=== PATIENT | female | born 1955 | race Caucasian/White ===

== ENCOUNTER 2018-02-25 11:01 | Emergency (ER) | payer OTHER, SELFPAY ==
[2018-02-25 11:01] VITALS: BP 139/85; PULSE 83; RESP 16; TEMP 36.9; O2SAT 95; BMI 24.3
[2018-02-25 12:25] LABS: Anion Gap 10 (5-15); BUN 9 mg/dL (7-18); BUN/Creat Ratio 12.6 RATIO (10-20); Chloride 99 mmol/L (98-107); Creatinine, Serum 0.71 mg/dL (0.55-1.02); EST Glomerular Filtration Rate 88 mL/min (>60); Est Glom Filt Rate - Afr Amer 107 mL/min (>60); Estimated Creatinine Clearance 71.85 ml/min; Glucose 81 mg/dL (74-106); Potassium 3.5 mmol/L (3.5-5.1); Sodium Level 140 mmol/L (136-145)
[2018-02-25 12:28] LABS: Basophil% 0.3 % (0-1); Eosinophils% 7.3 % (0-5); Hematocrit 34.3 % (37-47); Hemoglobin 11.5 g/dl (12.0-15.0); Lymphocyte % 22.8 % (19-41); Mean Corp Hgb Conc 33.5 g/gl (32-36); Mean Corpuscular Hgb 30.7 pg (27.0-32.0); Mean Corpuscular Volume 91.5 fL (81-99); Mean Platelet Vol. 9.4 fl (6.2-12.0); Monocyte% 9.1 % (0-10); Neutrophil # 5.15 X10^3/uL (2.7-7.7); Neutrophil % 60.2 % (47-70); POSITIVE COUNT NO; POSITIVE DIFFERENTIAL NO; POSITIVE MORPHOLOGY NO; Platelet Count 342 K/mm3 (150-450); RBC Distribution Width CV 12.4 % (11.6-14.6); RBC Distribution Width SD 40.7 fl (35.1-43.9); Red Blood Count 3.75 M/mm3 (4.2-5.4); White Blood Count 8.6 K/mm3 (4.4-11.0)
[2018-02-25 12:29] LABS: Absolute Lymphocyte Count 1.96 X10^3/ul (0.83-4.51); Absolute Neutrophil Count 5.2 X10^3/uL (2.0-7.7); Basophil# 0.03 X10^3/uL; Eosinophil# 0.63 X10^3/uL; Lymphocyte # 1.96 X10^3/ul (4.0); Monocyte# 0.78 X10^3/uL
[2018-02-25 12:33] LABS: Bacteria 0 SEEN /hpf (None Seen); Color, Urine Yellow (Yellow); Glucose, Dipstick Normal (Normal); Ketone-Dipstick Negative (Negative); Leukocyte Esterase-Dipstick 25 /ul (Negative); Mucous, Urine 0 SEEN /hpf (<or=2+); Nitrite-Dipstick Negative (Negative); Occult Blood-Urine Negative /ul (Negative); Protein-Dipstick Negative (Negative); Urine Bilirubin Dipstick Negative (Negative); Urine Clarity Clear (Clear); Urine Urobilinogen Normal (Normal)
[2018-02-25 12:37] LABS: Red Blood Cells-Urine 0-5 SEEN /hpf (0-5); Squamous Epithelial Cells - UA 0-5 SEEN /hpf (5-10); White Blood Cells 0-5 SEEN /hpf (0-5)
[2018-02-25] MEDS: Acetaminophen 325 MG Tablet 650 MG PO (13:21)
[2018-02-25] MEDS: oxyCODONE 5 MG Tablet 10 MG PO (13:21)
[2018-02-25 13:23] VITALS: BP 130/85; PULSE 83; RESP 16; O2SAT 92
--- NOTE | 2018-02-25 13:33 | ED.DCSUM_ITS ---
- ER Visit Summary Date of Service: 02/25/18 Chief Complaint: Leg swelling History of Present Illness: The patient is a 62 F presenting for evaluation secondary to bilateral lower extremity edema. Patient states that she had a recent right total shoulder surgery performed. She states she was doing well from that. She states that she only went home on some prophylactic antibiotics. She does not report that she has been on any sort of anticoagulants. She reports that over the course of the last 2448 hrs. she has had progressive swelling of her bilateral lower extremities going from her feet all the way up to her thighs. She states that there is some mild discomfort associated with the swelling but denies any chest pain hemoptysis or shortness of breath. Patient does have an underlying history of COPD. She denies any DVT or PE history. Physical Examination: Vital signs notable for pulse ox 93% well-nourished female no acute distress. Moist mucous membranes. No JVD. Heart regular rate and rhythm no murmurs lungs sounds clear to auscultation bilaterally. Abdomen soft nontender. Lower extremity exam shows +1 bilateral lower extremity edema 2 + DP pulses compartments are soft throughout the calf and thigh normal range of motion no evidence of petechia. Test Results: Duplex ultrasound bilaterally lower extremities is negative. CBC , chemistry, urinalysis found to be within normal limits, troponin negative, BNP negative Emergency Department Course and Treatment: She presented with lower extremity edema. Patient was worked up as noted above and had a negative workup. She has no evidence of vascular compromise that she has warm extremities and normal pulses. She has no evidence of DVT, no evidence of blood abnormalities renal abnormalities or heart failure. She likely just has simple peripheral edema she was recommended on elevation and she was discharged. Disposition: Discharge Impression: 1. Peripheral edema This note was generated with [employer] dictation software. It may contain incorrect words, spelling, and punctuation that were not noted in review of the chart prior to signing ED Disposition - Plan for ED Patient: Disposition: Home or Assisted Living Chief Complaint: Edema Diagnosis: Peripheral edema Instructions: ED Leg Swelling Bilateral Referrals: Julio Draper MD [Primary Care Provider] - As Needed
== END 2018-02-25 13:37 | disposition home or self-care (01) ==
PROVIDERS: Emergency Provider Emergency Medicine; Family Provider Internal Medicine; PCP Internal Medicine
DX: R60.0 Localized edema (principal); J44.9 Chronic obstructive pulmonary disease, unspecified
CPT/HCPCS: 80048; 81001; 81002; 83880; 84484; 85025; 93970; 99284; A4216

== ENCOUNTER → 2019-11-12 | Outpatient (CLI) | payer OTHER, SELFPAY ==
[2019-11-12 12:46] LABS: D-Dimer Quantitative (DVT/PE) 0.66 FEU/ug/m (0.27-0.49)
[2019-11-12 13:20] LABS: BNP,B-Type NATRIURETIC PEPTIDE 48.4 pg/mL (0-100)
== END | disposition home or self-care (01) ==
LOC: LABSPEC 12:19
PROVIDERS: PCP Internal Medicine; Referring Provider Nurse Practitioner; Visit Provider Nurse Practitioner
DX: R07.9 Chest pain, unspecified (principal); R06.02 Shortness of breath
CPT/HCPCS: 83880; 85379

== ENCOUNTER → 2020-03-07 | Outpatient (CLI) | payer OTHER, SELFPAY | END | disposition home or self-care (01) | LOC: LABSPEC 03-14 13:23 | PROVIDERS: PCP Internal Medicine | DX: R05 Cough (principal); J44.9 Chronic obstructive pulmonary disease, unspecified; R09.89 Other specified symptoms and signs involving the circulatory and respiratory systems; Z20.828 Contact with and (suspected) exposure to other viral communicable diseases | CPT/HCPCS: 87635; C9803; U0003 ==

== ENCOUNTER 2020-04-22 13:41 | Emergency (ER) | payer OTHER, SELFPAY ==
[2020-04-22 13:41] VITALS: BP 149/99; PULSE 89; RESP 17; TEMP 35.7; O2SAT 96; BMI 25.4
[2020-04-22 14:11] VITALS: O2SAT 96
--- NOTE | 2020-04-22 14:50 | ED.DCSUM_ITS ---
History of Present Illness Chief Complaint: Shortness of Breath Informant: Patient Narrative: 64 year old female presenting with shortness of breath. She states she has had a cold. She denies fever, chills, myalgia's, lost of taste or smell. She admits to a cough and congestion. She states It just my COPD acting up. She denies chest pain or palpitations. - Past Medical History (1) Benign essential hypertension Status: Chronic (2) COPD (chronic obstructive pulmonary disease) Status: Chronic (3) Tremor Status: Chronic Past Medical History - Allergies and Home Meds Allergies/Adverse Reactions: Allergies cephalexin monohydrate [From Keflex] Allergy (Verified 04/22/20 13:43) Chest tightness Primary Care Physician: Julio Draper MD [Primary Care Provider] - Prior records reviewed: Yes Past Medical History: - - Reveiwed in problem list Surgical History: cholecystectomy, - - left inguinal hernia repair, tonsil, tubular x 3 history w/ BL salpingectomy. Lives: Spouse/ Significant Other Smoking Status: Former smoker Alcohol: None Drugs: None - Family History Maternal Family History: Reports: - - adopted Paternal Family History: Reports: - - adopted Review of Systems General: Denies: Chills, Fever Eyes: Denies: Visual changes - bilaterally, Diplopia ENT: Reports: Rhinorrhea. Denies: Bilateral ear pain Cardiovascular: Denies: Chest pain, Palpitations Respiratory: Reports: Dyspnea, Cough Gastrointestinal: Denies: Abdominal pain, Nausea, Vomiting, Diarrhea Genitourinary: Denies: Dysuria, Hematuria Musculoskeletal: Denies: Myalgias, Arthralgias Skin: Denies: Rash, Wounds Neurological: Denies: Headache, Weakness, Parasthesia Physical Exam Vital Signs/Narrative: Vital Signs Temp Pulse Resp BP Pulse Ox 04/22/20 13:41 96.2 F L 89 17 149/99 H 96 Inital Vital Signs reviewed: Yes General: Well nourished, No Acute Distress Head: Normocephalic, Atraumatic Eyes: Perrl, EOMI ENT: Moist mucous membranes, Nasal congestion Cardiovascular: Regular rate, Regular rhythm Respiratory: No distress, Wheezing, Decreased Air Movement Extremities: Nontender, No edema Skin: Normal color, No rash. Negative for: Cyanosis, Diaphoresis Neurological: Alert, Oriented x3 Psychological: Normal affect, Normal Mood Diagnostic/Tx/Re-eval - Medical Decision Making 64-year-old female presenting with a very mild cough and shortness of breath. She is minimally wheezing on examination. Her vital signs are stable and she is afebrile. She is not using accessory muscles for breathing. She is speaking in full sentences. She is not requiring any oxygen. Patient was given breathing treatments and Solu-Medrol and feels much better. Patient will be discharged home with a prescription for prednisone. She refused Covid?19 testing. She is given strict return precautions if her symptoms worsen. Impression: 1. COPD exacerbation ED Disposition - Plan for ED Patient: Disposition: Home or Assisted Living Instructions: ED COPD Flare Prescriptions: predniSONE tablet 60 mg PO DAILY #15 tab Transmission Status: Pending to [facility][id number] Referrals: Julio Draper MD [Primary Care Provider] -
[2020-04-22 15:08] VITALS: PULSE 77; RESP 16
[2020-04-22] MEDS: Albuterol 2.5 MG/3 ML VIAL.NEB. INHALATION (15:08)
[2020-04-22] MEDS: Ipratropium/Albuterol Sulfate 3 ML AMPUL.NEB INHALATION (15:08)
[2020-04-22] MEDS: MethylPREDNISolone 125 MG/2 ML Vial IV (15:15)
[2020-04-22 15:54] VITALS: BP 130/67; PULSE 85; RESP 20; O2SAT 95
[2020-04-22 16:36] VITALS: BP 112/69; PULSE 83; RESP 14; O2SAT 96
--- NOTE | 2020-04-23 13:26 | ED.RN ---
PT CALLED [facility] PHARMACY DID NOT RECEIVE THE ELECTRONIC SCRIPT. PHONE CALL MADE TO GIVE VERBAL SCRIPT FOR PT TO [facility]
== END 2020-04-22 16:36 | disposition home or self-care (01) ==
PROVIDERS: Emergency Provider Student in an Organized Health Care Education/Training Program; PCP Internal Medicine
DX: J44.1 Chronic obstructive pulmonary disease with (acute) exacerbation (principal); I10 Essential (primary) hypertension; R25.1 Tremor, unspecified; Z79.899 Other long term (current) drug therapy; Z87.891 Personal history of nicotine dependence
CPT/HCPCS: 94640; 96374; 99251; 99283; A4216; G0463

== ENCOUNTER 2021-04-27 11:35 | Outpatient (CLI) | payer OTHER, SELFPAY ==
[2021-04-27 12:01] VITALS: BP 123/63; PULSE 90; RESP 16; TEMP 37.3; O2SAT 93; BMI 25.4
[2021-04-27] MEDS: 0.9% Saline Lock 10 ML Syringe IV (12:01)
[2021-04-27 12:38] VITALS: BP 114/65; PULSE 81; RESP 16; TEMP 37.1; O2SAT 94
[2021-04-27 13:38] VITALS: BP 109/63; PULSE 80; RESP 16; TEMP 36.9; O2SAT 94
== END 2021-04-27 13:38 | disposition home or self-care (01) ==
LOC: MS3OUT 11:35 → MS3 11:36 → MS3OUT 11:37 → MS3 12:03
PROVIDERS: PCP Internal Medicine; Referring Provider Nurse Practitioner Adult Health; Visit Provider Nurse Practitioner Adult Health
DX: Z23 Encounter for immunization (principal); U07.1 COVID-19
CPT/HCPCS: J7050; M0245; Q0245; A4216

== ENCOUNTER 2021-05-01 12:18 | Inpatient (IN) | payer OTHER, SELFPAY ==
[2021-05-01] VITALS (7 sets, daily range): BP systolic 108–144; BP diastolic 71–89; PULSE 74–86; RESP 18–20; TEMP 36.6–37.1; O2SAT 91–94; BMI 25.4; BMI 25.2
--- NOTE | 2021-05-01 13:05 | RAD_ITS ---
STUDY: X-RAY CHEST REASON FOR EXAM: Female, 65 years old. Cough TECHNIQUE: Single AP portable view of the chest. COMPARISON: Comparison is made with prior study dated 05/23/2016. FINDINGS: EKG electrodes are seen. Hyperinflation. Mild increased markings in the right infrahilar region. This may represent an early infiltrate. There is no demonstrated pleural abnormality. Normal size heart. Normal mediastinum and katelyn. There is prominence of the pulmonary hilar arteries without peripheral pulmonary vascular congestion, suggesting pulmonary hypertension. There is atherosclerotic calcification of the aortic arch with tortuosity. There are degenerative changes of the visualized thoracic spine. Normal visualized ribs, clavicles, and shoulders. There is no demonstrated abnormality of the visualized soft tissue structures of the upper abdomen. RAD/Chest 1 View (Portable) IMPRESSION: Hyperinflation. Mild degree of increased markings in the right infrahilar region. Electronically Signed: Michael Gaxiola MD at 13:20 EDT , Service support ,
[2021-05-01 13:08] LABS: Absolute Lymphocyte Count 1.36 X10^3/uL (0.83-4.51); Absolute Neutrophil Count 11.5 X10^3/uL (2.0-7.7); Basophil# 0.05 X10^3/uL; Basophil% 0.4 % (0-1); Eosinophil# 0.36 X10^3/uL; Eosinophils% 2.6 % (0-5); Hematocrit 37.9 % (37-47); Hemoglobin 12.4 g/dL (12.0-15.0); Lymphocyte # 1.36 X10^3/ul (0.83-4.51); Lymphocyte % 9.8 % (19-41); Mean Corp Hgb Conc 32.7 g/dL (32-36); Mean Corpuscular Hgb 29.1 pg (27.0-32.0); Mean Platelet Vol. 9.6 fl (6.2-12.0); Monocyte# 0.54 X10^3/uL; Monocyte% 3.9 % (0-10); NRBC Flagged by Analyzer 0 % (0-5); Neutrophil # 11.52 X10^3/uL (2.7-7.7); Neutrophil % 82.6 % (47-70); Platelet Count 348 K/mm3 (150-450); RBC Distribution Width CV 12.4 % (11.6-14.6); RBC Distribution Width SD 40.4 fl (35.1-43.9); Red Blood Count 4.26 M/mm3 (4.2-5.4); White Blood Count 13.9 K/mm3 (4.4-11.0)
[2021-05-01 13:24] LABS: ALB/GLOB Ratio 0.7 RATIO (0.9-2.4); AST(SGOT) 14 U/L (15-37); Alanine Aminotransfer ALT/SGPT 18 U/L (13-56); Alkaline Phosphatase 116 U/L (45-117); Anion Gap 6 (5-15); BUN 16 mg/dL (7-18); BUN/Creat Ratio 21.8 RATIO (10-20); Calcium,Total 8.9 mg/dL (8.5-10.1); Chloride 107 mmol/L (98-107); Creatinine, Serum 0.73 mg/dL (0.55-1.02); EST Glomerular Filtration Rate 85 mL/min (>60); Est Glom Filt Rate - Afr Amer 102 mL/min (>60); Estimated Creatinine Clearance 67.23 ml/min; Globulin 4.2 g/dL (2.2-4.2); Glucose 96 mg/dL (74-106); Potassium 3.3 mmol/L (3.5-5.1); Protein, Total 7.2 g/dL (6.4-8.2); Sodium Level 142 mmol/L (136-145)
[2021-05-01 13:25] LABS: Lactic Acid 1.3 mmol/L (0.4-1.9)
--- NOTE | 2021-05-01 13:28 | ED.VIS.DYS ---
HPI History of Present Illness Chief Complaint: Shortness of Breath Informant: patient Onset/Context/Timing Onset: Days (11) Context: gradual Timing: Continuous Quality: Positive for Dyspnea on exertion Worsened by: Exertion Relieved by: Rest Associated Symptoms cough, subjective, chills, yellow sputum and green sputum; Negative for rhinorrhea, ear pain, fever or sore throat Chest Pain: Positive for Pressure Narrative Narrative: Patient presents with shortness of breath that has been getting worse over the past 11 days. Patient had monoclonal antibody infusion earlier this week. Patient states she has not been getting any better since this. Patient states her breathing is getting worse. Patient admits to a cough with some yellow and green sputum. Patient states she has some heaviness in her chest. Patient admits to subjective chills but denies any fevers. Patient states her oxygen saturation dropped to 87% at home. PFSH PFSH Medical History Asthma COPD (chronic obstructive pulmonary disease) Home Medications albuterol sulfate [Ventolin HFA] 2 puff INHALATION Q4H PRN PRN 08/28/15 [History Last Taken 05/01/21] montelukast 10 mg PO QHS 02/25/18 [History Last Taken 04/30/21] fluticasone propionate 2 spray INTRANASAL QHS 05/01/21 [History Last Taken 04/30/21] [id number] [Trelegy Ellipta] 1 inh INHALATION DAILY 05/01/21 [History Last Taken 05/01/21] prednisone See Taper PO DAILY 05/01/21 [History Last Taken 05/01/21] Allergy/AdvReac Type Severity Reaction Status Date / Time cephalexin monohydrate Allergy Chest Verified 05/01/21 12:22 [From Keflex] tightness Surgical History Hx of cholecystectomy Hx of tonsillectomy Social History Smoking Status: Former smoker ROS ROS ED Constitutional Constitutional ED: Denies chills or fever(s) Eyes Eyes: Denies blurry vision or change in vision ENT ENT ED: Denies rhinorrhea or sore throat Cardiovascular Cardiovascular: Reports chest pain; Denies palpitations Respiratory/Chest Respiratory/Chest: Reports cough and dyspnea Gastrointestinal Gastrointestinal: Denies nausea or vomiting Genitourinary Genitourinary ED: Denies dysuria or hematuria Musculoskeletal Musculoskeletal: Denies back pain or neck pain Integumentary Denies abscess or rash Neurologic Neurologic: Reports headache(s); Denies weakness Allergic/Immunologic Allergic/Immunologic ED: Denies mouth swelling or urticaria EXAM Physical Exam Const Vital Signs: 05/01/21 12:19 05/01/21 12:32 Temperature 98.7 F Temperature Source Temporal Pulse Rate 81 Respiratory Rate 20 H Respiratory Effort Short of Breath Labored Respiratory Depth Normal Respiratory Pattern Normal Blood Pressure 139/71 H Blood Pressure Mean 93 Pulse Ox 93 Oxygen Delivery Method Room Air Room Air Positive well nourished and well developed General Appearance ED: well developed HEENT Reports moist mucous membranes Neck supple and no JVD Resp normal respiratory effort and clear to auscultation bilaterally Cardio regular rate, regular rhythm and no murmurs GI normal to inspection, nondistended, normoactive bowel sounds and non-tender Palpation: soft Extremity normal to inspection General Extremety ED: Negative for edema or tenderness General Extremity: Negative for edema Neuro oriented x3, CN's II-XII intact bilaterally and no sensory deficits noted Sensorium / Orientation: alert Motor Exam: strength 5/5 throughout Psych mental status grossly normal Skin no rashes or lesions noted MDM MDM MDM Narrative Medical decision making narrative: Patient was given 6 puffs of an albuterol inhaler. Patient was given a dose of Decadron. Portable chest x-ray was obtained. There is 1 view. On my interpretation, there is a right infrahilar infiltrate. Bony thorax is normal. There is no cardiomegaly. Radiologist also interpreted the x-ray and agrees. CBC shows leukocytosis of 13.9. Comprehensive metabolic profile was essentially within normal limits. Lactate was normal. Because of the patient's hypoxia prior to arrival, case was discussed with the hospitalist. She will admit the patient for observation. Patient understood and was agreeable with the plan. All questions were answered. Lab Data Labs: Laboratory Results - last 24 hr 05/01/21 05/01/21 05/01/21 12:58 12:58 12:58 WBC 13.9 H RBC 4.26 Hgb 12.4 Hct 37.9 MCV 89.0 MCH 29.1 MCHC 32.7 RDW Std Deviation 40.4 RDW Coeff of Laly 12.4 Plt Count 348 MPV 9.6 Immature Gran % (Auto) 0.700 Neut % (Auto) 82.6 H Lymph % (Auto) 9.8 L [place] % (Auto) 3.9 Eos % (Auto) 2.6 Baso % (Auto) 0.4 Absolute Neuts (auto) 11.5 H Absolute Lymphs (auto) 1.36 Nucleated RBC % 0 Sodium 142 Potassium 3.3 L Chloride 107 Carbon Dioxide 29.0 Anion Gap 6 BUN 16 Creatinine 0.73 Estim Creat Clear Calc 67.23 Est GFR (MDRD) Af Amer 102 Est GFR (MDRD) Non-Af 85 BUN/Creatinine Ratio 21.8 H Glucose 96 Lactic Acid 1.3 Calcium 8.9 Total Bilirubin 0.50 AST 14 L ALT 18 Alkaline Phosphatase 116 Total Protein 7.2 Albumin 3.0 L Globulin 4.2 Albumin/Globulin Ratio 0.7 L Radiography Chest X-Ray - ED: 1 View, Read by ED Physician, Read by Radiologist and Right Infiltrate Diagnostic Testing: Clinical Impression(s) from Imaging Studies Chest X-Ray 05/01/21 13:05 IMPRESSION: Hyperinflation. Mild degree of increased markings in the right infrahilar region. Electronically Signed: Michael Gaxiola MD at 13:20 EDT , Service support , Treatment and Re-Evaluation Vital Sign Attestation:: Vital signs reviewed prior to admission. They are stable. Discharge Plan Dx/Rx/DC Orders Clinical Impression: Pneumonia due to COVID-19 virus, Hypoxia Disposition Disposition: Acute Care [facility] Discharge Date/Time: 05/01/21 17:46
--- NOTE | 2021-05-01 16:19 | PCM.HP.STD ---
HPI - General General Date of Admission: 05/01/21 Date of Service: 05/01/21 Chief Complaint: SOB HPI Narrative SNEHA CARDENAS, is a 65 F who presents progressive shortness of breath ongoing for 2 weeks. Patient was vaccinated with Pfizer. She lives at home with her family. Her daughter and son-in-law call Covid and have recovered. She started having symptoms of nausea, vomiting, fever and chills. She received her monoclonal antibody infusion 4 days ago, 04/27/21. She comes in with progressive shortness of breath. She was found to be desaturating below 80s on exertion. She admits to some chills but denied any fevers. Denied dizziness or palpitations. Denied any sense of loss of taste or smell. [facility] Medical History Asthma COPD (chronic obstructive pulmonary disease) Loose, teeth Home Medications albuterol sulfate [Ventolin HFA] 2 puff INHALATION Q4H PRN PRN 08/28/15 [History Last Taken 05/01/21] montelukast 10 mg PO QHS 02/25/18 [History Last Taken 04/30/21] fluticasone propionate 2 spray INTRANASAL QHS 05/01/21 [History Last Taken 04/30/21] [id number]-[id number] [Trelegy Ellipta] 1 inh INHALATION DAILY 05/01/21 [History Last Taken 05/01/21] prednisone See Taper PO DAILY 05/01/21 [History Last Taken 05/01/21] Allergy/AdvReac Type Severity Reaction Status Date / Time cephalexin monohydrate Allergy Chest Verified 05/01/21 12:22 [From Keflex] tightness adopted Surgical History History of herniorrhaphy Hx of cholecystectomy Hx of tonsillectomy Social History (Updated 05/01/21 @ 19:[address] Tomeka Clark MD) adopted: Yes household members: family housing: house current gender identity: female Smoking Status: Former smoker alcohol intake: never substance use type: does not use ROS ROS Narrative Constitutional: Reports: Malaise, Weakness, Fatigue. Anorexia, Chills, Fever, Night Sweats, Denies: Weight Change Eyes: Denies: Blurred vision, Cataracts, Conjunctivae Inflammation, Pain, Redness, Vision Change HEENT: Denies: Difficulty Hearing, Difficulty Swallowing, Head Aches, Hearing Changes, Sinus Congestion, Sinus Drainage Cardiovascular: Denies: Chest Pain, Orthopnea, Palpitations Respiratory: Admits to cough, Shortness of breath at rest, Denies: Sputum production Gastrointestinal: Denies: Abdominal Pain, Nausea, Vomiting Genitourinary: Denies: Dysuria Musculoskeletal: Denies: Joint Pain, Joint stiffness, Joint swelling, Joint Tenderness Skin: Denies: Rash, Wounds Neurological: Denies: Numbness, Tingling, Focal weakness Vital Signs Vital Signs Vital Signs: 05/01/21 12:19 05/01/21 12:32 Temperature 98.7 F Temperature Source Temporal Pulse Rate 81 Respiratory Rate 20 H Respiratory Effort Short of Breath Labored Respiratory Depth Normal Respiratory Pattern Normal Blood Pressure 139/71 H Blood Pressure Mean 93 Pulse Ox 93 Oxygen Delivery Method Room Air Room Air Weight Weight: 67.132 kg Body Mass Index (BMI) 25.4 Physical Exam Narrative Physical exam: General: Alert, Oriented x3, Cooperative, No apparent distress, Well developed, not on oxygen HEENT: Atraumatic Oral: Moist Mucosa Neck: Supple Lungs: Clear to auscultation Cardiovascular: HS I+II, regular, no murmurs Abdomen: Bowel Sounds Present, Soft, Non Tender Extremities: No edema Results Lab / Micro Data Result Diagrams: 05/01/21 12:58 05/01/21 12:58 Labs: Laboratory Results - last 24 hr 05/01/21 12:58: WBC 13.9 H, RBC 4.26, Hgb 12.4, Hct 37.9, MCV 89.0, MCH 29.1, MCHC 32.7, RDW Std Deviation 40.4, RDW Coeff of Laly 12.4, Plt Count 348, MPV 9.6, Immature Gran % (Auto) 0.700, Neut % (Auto) 82.6 H, Lymph % (Auto) 9.8 L, [place] % (Auto) 3.9, Eos % (Auto) 2.6, Baso % (Auto) 0.4, Absolute Neuts (auto) 11.5 H, Absolute Lymphs (auto) 1.36, Nucleated RBC % 0 05/01/21 12:58: Sodium 142, Potassium 3.3 L, Chloride 107, Carbon Dioxide 29.0, Anion Gap 6, BUN 16, Creatinine 0.73, Estim Creat Clear Calc 67.23, Est GFR (MDRD) Af Amer 102, Est GFR (MDRD) Non-Af 85, BUN/Creatinine Ratio 21.8 H, Glucose 96, Calcium 8.9, Total Bilirubin 0.50, AST 14 L, ALT 18, Alkaline Phosphatase 116, Total Protein 7.2, Albumin 3.0 L, Globulin 4.2, Albumin/Globulin Ratio 0.7 L 05/01/21 12:58: Lactic Acid 1.3 Micro: Microbiology 05/01/21 13:12 Nasal Secretion SARS-CoV-2 Antigen (Rapid) - Final SARS-CoV-2 (COVID 19) Radiology Impression Chest X-Ray 05/01/21 13:05 IMPRESSION: Hyperinflation. Mild degree of increased markings in the right infrahilar region. Electronically Signed: Michael Gaxiola MD at 13:20 EDT , Service support , Assessment & Plan Assessment/Plan (1) Benign essential hypertension: (2) COPD (chronic obstructive pulmonary disease): QUALIFIERS: Emphysema type: unspecified Qualified Code(s): J43.9 - Emphysema, unspecified (3) Asthma: QUALIFIERS: Asthma severity: unspecified severity Asthma complication type: uncomplicated Qualified Code(s): J45.909 - Unspecified asthma, uncomplicated (4) Hypoxia: (5) COVID-19: PLAN: 1. Hypoxia secondary to acute COVID-19 infection Patient chest x-ray shows increased hilar markings when no specific infiltrates seen Patient is saturating 94% on room air; pulse ox dropped with ambulation Started on IV Decadron, will continue oral Decadron 2. Asthma/COPD, not in acute exacerbation Continue on breathing treatment, montelukast, budesonide 3. DVT prophylaxis with Lovenox subcu twice daily Charges/Coding Visit Charges Inpatient E&M: 24371 Init Hosp L2
[2021-05-01] MEDS: dexAMETHasone 4 MG/ML Vial 6 MG IV (17:01)
[2021-05-01 19:56] LABS: BNP,B-Type NATRIURETIC PEPTIDE 63.3 pg/mL (0-100)
[2021-05-01] MEDS: Enoxaparin 30 MG/0.3 ML Syringe SC (20:57)
[2021-05-01] MEDS: Montelukast 10 MG Tablet PO (20:57)
[2021-05-01] MEDS: Acetaminophen 325 MG Tablet 650 MG PO (20:57)
[2021-05-01] MEDS: 0.9% Saline Lock 10 ML Syringe IV (20:58)
[2021-05-01] MEDS: Fluticasone 0.05% 1 SPRAY NASAL.SRY 2 SPRAY NASAL (21:18)
[2021-05-02] VITALS (10 sets, daily range): BP systolic 111–137; BP diastolic 66–83; PULSE 67–102; RESP 18–20; TEMP 36.6–36.8; O2SAT 89–95
[2021-05-02 06:56] LABS: Absolute Lymphocyte Count 1.95 X10^3/uL (0.83-4.51); Absolute Neutrophil Count 6.8 X10^3/uL (2.0-7.7); Basophil# 0.02 X10^3/uL; Basophil% 0.2 % (0-1); Eosinophil# 0.01 X10^3/uL; Eosinophils% 0.1 % (0-5); Lymphocyte # 1.95 X10^3/ul (0.83-4.51); Lymphocyte % 20.9 % (19-41); Mean Corp Hgb Conc 33.3 g/dL (32-36); Mean Corpuscular Hgb 29.5 pg (27.0-32.0); Mean Corpuscular Volume 88.5 fL (81-99); Mean Platelet Vol. 9.4 fl (6.2-12.0); Monocyte# 0.51 X10^3/uL; Monocyte% 5.5 % (0-10); NRBC Flagged by Analyzer 0 % (0-5); Neutrophil # 6.78 X10^3/uL (2.7-7.7); Neutrophil % 72.8 % (47-70); Platelet Count 337 K/mm3 (150-450); RBC Distribution Width CV 12.4 % (11.6-14.6); Red Blood Count 4.07 M/mm3 (4.2-5.4); White Blood Count 9.3 K/mm3 (4.4-11.0)
[2021-05-02 07:24] LABS: ALB/GLOB Ratio 0.7 RATIO (0.9-2.4); AST(SGOT) 16 U/L (15-37); Alanine Aminotransfer ALT/SGPT 18 U/L (13-56); Albumin, Serum 2.8 g/dL (3.2-5.0); Alkaline Phosphatase 104 U/L (45-117); Anion Gap 6 (5-15); BUN 22 mg/dL (7-18); BUN/Creat Ratio 32.2 RATIO (10-20); Chloride 103 mmol/L (98-107); Creatinine, Serum 0.68 mg/dL (0.55-1.02); EST Glomerular Filtration Rate 92 mL/min (>60); Est Glom Filt Rate - Afr Amer 111 mL/min (>60); Estimated Creatinine Clearance 72.17 ml/min; Globulin 4.1 g/dL (2.2-4.2); Glucose 111 mg/dL (74-106); Potassium 4.1 mmol/L (3.5-5.1); Protein, Total 6.9 g/dL (6.4-8.2); Sodium Level 137 mmol/L (136-145)
[2021-05-02] MEDS: Ipratropium/Albuterol Sulfate 3 ML AMPUL.NEB INHALATION ×3 (07:48→20:08)
[2021-05-02] MEDS: Budesonide Respules 0.5 MG/2 ML AMPUL.NEB. INHALATION ×2 (07:48→20:08)
--- NOTE | 2021-05-02 08:41 | PCM.DC ---
Discharge Instructions Follow Up Care Test Results: Test results from this visit will be discussed in further detail at your follow-up appointment, if applicable. Discharge Plan Admission Admit Date/Time: 05/01/21 16:13 Attending Provider: Tomeka Clark Primary Care Provider: Julio Draper Discharge Orders/Prescriptions Prescriptions: No Action albuterol sulfate [Ventolin HFA] 1 INHALER inhaler 2 puff inhalation Q4H PRN PRN (Reason: Shortness Of Breath) RF: 0 montelukast 10 MG tablet 10 mg PO QHS RF: 0 prednisone 10 mg tablet See Taper mg PO DAILY RF: 0 fluticasone propionate 50 mcg/actuation spray,suspension 2 spray INTRANASAL QHS RF: 0 Trelegy Ellipta 100-62.5-25 mcg blister with device 1 inh INHALATION DAILY RF: 0 Referrals / Follow Up: Julio Draper MD [Primary Care Provider] - Disposition Discharge Orders: Discharge Patient (Routine); Ordered 05/02/21 Ordered By: Dr. Tomeka Clark
[2021-05-02] MEDS: Enoxaparin 30 MG/0.3 ML Syringe SC ×2 (10:06→22:54)
[2021-05-02] MEDS: dexAMETHasone 4 MG Tablet 6 MG PO (10:06)
--- NOTE | 2021-05-02 11:40 | CASEMGMT ---
RN CM called patient for initial transition planning/care coordination assessment. RN YOLANDA introduced self and role at [facility]. Patient is alert and oriented. Patient willing to participate in assessment and is able to answer all questions appropriately. Care providers, pharmacy, and demographics verified. Patient wishes to discharge home, denies need for home health at this time. Patient states she has no further needs or concerns at this time. CM to follow for discharge planning needs that may arise. 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 Patient was independent at home. Patietn states daughter and her family are currenlty living with them as they are building a house. Family is isolating at home. Transportation: self, , daughter DME/HHC: Patient states she has a nebulizer at home through [facility] that she prefers for DME. Will monitor for home oxygen at discharge. Disposition Plan: Patient to discharge home with family support and follow-up plans in place. Evelin GOODMAN, RN, CM
--- NOTE | 2021-05-02 14:38 | PCM.PN.HOSP ---
Subjective Subjective Follow-up on acute COVID-19 pneumonia: Patient was seen and examined. She complains of dizziness with exertion. Her pulse ox dropped to 89% with exertion. She is otherwise not on oxygen on room air. Orthostatic vitals were positive. Objective Data Objective Data Vital Signs: Vital Signs Temp Pulse Resp BP Pulse Ox 97.8 F 89 18 135/76 H 93 05/02/21 09:57 05/02/21 14:02 05/02/21 14:02 05/02/21 11:42 05/02/21 10:11 Oxygen Flow Rate (L/min) [ 0 AMBULATING on Room Air] Oxygen Flow Rate (L/min) [At 0 REST on Room Air] Oxygen Flow Rate (L/min) 2 Oxygen Delivery Method Nasal Cannula Weight: 66.678 kg Body Mass Index (BMI) 25.2 Intake & Output: Intake and Output for Last 24 Hours 04/30/21 05/01/21 05/02/21 23:59 23:59 23:59 Intake Total 400 / 400 Output Total 450 / 450 Balance -50 / -50 Lab / Micro Data Result Diagrams: 05/02/21 06:44 05/02/21 06:44 Labs: Laboratory Results - last 24 hr 05/01/21 12:58: B-Natriuretic Peptide 63.3 05/02/21 06:44: WBC 9.3, RBC 4.07 L, Hgb 12.0, Hct 36.0 L, MCV 88.5, MCH 29.5, MCHC 33.3, RDW Std Deviation 40.0, RDW Coeff of Laly 12.4, Plt Count 337, MPV 9.4, Immature Gran % (Auto) 0.500, Neut % (Auto) 72.8 H, Lymph % (Auto) 20.9, [place] % (Auto) 5.5, Eos % (Auto) 0.1, Baso % (Auto) 0.2, Absolute Neuts (auto) 6.8, Absolute Lymphs (auto) 1.95, Nucleated RBC % 0 05/02/21 06:44: Sodium 137, Potassium 4.1, Chloride 103, Carbon Dioxide 28.0, Anion Gap 6, BUN 22 H, Creatinine 0.68, Estim Creat Clear Calc 72.17, Est GFR (MDRD) Af Amer 111, Est GFR (MDRD) Non-Af 92, BUN/Creatinine Ratio 32.2 H, Glucose 111 H, Calcium 9.0, Total Bilirubin 0.70, AST 16, ALT 18, Alkaline Phosphatase 104, Total Protein 6.9, Albumin 2.8 L, Globulin 4.1, Albumin/Globulin Ratio 0.7 L Micro: Microbiology 05/01/21 19:40 Mucosa - Nasopharyngeal Respiratory Panel (PCR) - Final 05/01/21 21:24 Urine, Clean Catch Legionella Antigen - Final 05/01/21 21:24 Urine, Clean Catch Streptococcus pneumoniae Antigen (M - Final 05/01/21 13:12 Nasal Secretion SARS-CoV-2 Antigen (Rapid) - Final SARS-CoV-2 (COVID 19) Physical Exam Narrative Physical exam: General: Alert, Oriented x3, Cooperative, No apparent distress, well developed, not on oxygen HEENT: Atraumatic Oral: Moist Mucosa Neck: Supple Lungs: Diminished to auscultation Cardiovascular: HS I+II, regular, no murmurs Abdomen: Bowel Sounds Present, Soft, Non Tender Extremities: No edema Assessment & Plan Assessment/Plan (1) Benign essential hypertension: (2) COPD (chronic obstructive pulmonary disease): QUALIFIERS: Emphysema type: unspecified Qualified Code(s): J43.9 - Emphysema, unspecified (3) Asthma: QUALIFIERS: Asthma severity: unspecified severity Asthma complication type: uncomplicated Qualified Code(s): J45.909 - Unspecified asthma, uncomplicated (4) Hypoxia: (5) COVID-19: PLAN: 1. Hypoxia secondary to acute COVID-19 infection Patient's chest x-ray shows increased hilar markings when no specific infiltrates seen Patient is saturating 94% on room air; pulse ox dropped with ambulation Continue on po Decadron, will continue oral Decadron 2. Orthostatic hypotension, will give IV fluids 3. Asthma/COPD, not in acute exacerbation Continue on breathing treatment, montelukast, budesonide 4. DVT prophylaxis with Lovenox subcu twice daily Charges/Coding Visit Charges Inpatient E&M: 18081 Subs Hosp L2
[2021-05-02] MEDS: 0.9% Saline Lock 10 ML Syringe IV (15:01)
[2021-05-02] MEDS: 0.9% Normal Saline 1,000 ML 100 ML IV ×2 (15:02→23:33)
[2021-05-02] MEDS: Fluticasone 0.05% 1 SPRAY NASAL.SRY 2 SPRAY NASAL (22:54)
[2021-05-02] MEDS: Montelukast 10 MG Tablet PO (22:54)
[2021-05-03] VITALS (11 sets, daily range): BP systolic 124–141; BP diastolic 64–84; PULSE 62–88; RESP 16–20; TEMP 36.5–36.9; O2SAT 92–96
[2021-05-03] MEDS: Ipratropium/Albuterol Sulfate 3 ML AMPUL.NEB INHALATION ×3 (07:30→20:00)
[2021-05-03] MEDS: Budesonide Respules 0.5 MG/2 ML AMPUL.NEB. INHALATION ×2 (07:31→20:00)
--- NOTE | 2021-05-03 10:07 | PN.HOSP_ITS ---
Subjective Subjective Follow-up on acute COVID-19 pneumonia: Patient was seen in examined. She is feeling very short of breath with exer tion. No more feeling dizzy. She feels very congested. Objective Data Objective Data Vital Signs: Vital Signs Temp Pulse Resp BP Pulse Ox 97.9 F 70 18 137/71 H 94 05/03/21 05:44 05/03/21 07:30 05/03/21 07:30 05/03/21 05:44 05/03/21 05:44 Oxygen Flow Rate (L/min) [ 0 AMBULATING on Room Air] Oxygen Flow Rate (L/min) [At 0 REST on Room Air] Oxygen Flow Rate (L/min) 2 Oxygen Delivery Method Room Air Weight: 66.678 kg Body Mass Index (BMI) 25.2 Intake & Output: Intake and Output for Last 24 Hours 05/01/21 05/02/21 05/03/21 23:59 23:59 23:59 Intake Total 1651.67 / 1651.67 Output Total 450 / 450 Balance 1201.67 / 1201.67 Lab / Micro Data Result Diagrams: 05/02/21 06:44 05/02/21 06:44 Micro: Microbiology 05/02/21 15:33 Sputum, Expectorated/Coughed Gram Stain - Final 05/02/21 15:33 Sputum, Expectorated/Coughed Respiratory Culture - Preliminary Appears to be normal respiratory kirk. Further studies to follow. 05/01/21 19:40 Mucosa - Nasopharyngeal Respiratory Panel (PCR) - Final 05/01/21 21:24 Urine, Clean Catch Legionella Antigen - Final 05/01/21 21:24 Urine, Clean Catch Streptococcus pneumoniae Antigen (M - Final 05/01/21 13:12 Nasal Secretion SARS-CoV-2 Antigen (Rapid) - Final SARS-CoV-2 (COVID 19) Physical Exam Narrative Physical exam: General: Alert, Oriented x3, Cooperative, in mild respiratory distress HEENT: Atraumatic Oral: Moist Mucosa Neck: Supple Lungs: Diminished to auscultation Cardiovascular: HS I+II, regular, no murmurs Abdomen: Bowel Sounds Present, Soft, Non Tender Extremities: No edema Assessment & Plan Assessment/Plan (1) Benign essential hypertension: (2) COPD (chronic obstructive pulmonary disease): QUALIFIERS: Emphysema type: unspecified Qualified Code(s): J43.9 - Emphysema, unspecified (3) Asthma: QUALIFIERS: Asthma severity: unspecified severity Asthma complication type: uncomplicated Qualified Code(s): J45.909 - Unspecified asthma, uncomplicated (4) Hypoxia: (5) COVID-19: PLAN: Summary: 65-year-old female who has been vaccinated comes in with complaints of shortness of breath ongoing for almost 2 weeks. 1. Hypoxia secondary to acute COVID-19 infection, slightly worsening, patient desaturating more with exertion Patient's chest x-ray shows increased hilar markings when no specific infiltrates seen Continue on po Decadron, encourage use of incentive spirometer 2. Orthostatic hypotension, resolved 3. Asthma/COPD, not in acute exacerbation Continue on breathing treatment, montelukast, budesonide 4. DVT prophylaxis with Lovenox subcu twice daily Charges/Coding Visit Charges Inpatient E&M: 68453 Subs Hosp L2
[2021-05-03] MEDS: 0.9% Normal Saline 1,000 ML 100 ML IV ×2 (10:53→20:35)
[2021-05-03] MEDS: Enoxaparin 30 MG/0.3 ML Syringe SC ×2 (10:53→23:58)
[2021-05-03] MEDS: dexAMETHasone 4 MG Tablet 6 MG PO (10:53)
[2021-05-03] MEDS: Acetaminophen 325 MG Tablet 650 MG PO (18:15)
[2021-05-03] MEDS: Fluticasone 0.05% 1 SPRAY NASAL.SRY 2 SPRAY NASAL (23:58)
[2021-05-03] MEDS: Montelukast 10 MG Tablet PO (23:58)
[2021-05-04] VITALS (8 sets, daily range): BP systolic 124–138; BP diastolic 72–74; PULSE 53–71; RESP 18–21; TEMP 36.2–36.5; O2SAT 86–96
[2021-05-04] MEDS: 0.9% Normal Saline 1,000 ML 100 ML IV (06:17)
[2021-05-04] MEDS: Budesonide Respules 0.5 MG/2 ML AMPUL.NEB. INHALATION (07:32)
[2021-05-04] MEDS: Ipratropium/Albuterol Sulfate 3 ML AMPUL.NEB INHALATION (07:32)
[2021-05-04] MEDS: Enoxaparin 30 MG/0.3 ML Syringe SC (08:18)
[2021-05-04] MEDS: dexAMETHasone 4 MG Tablet 6 MG PO (08:18)
--- NOTE | 2021-05-04 11:46 | PCM.DC.SUM ---
Providers Date of Admission: 05/01/21 Primary Care Physician: Dr. Julio Draper MD Reason For Visit: RESP FAILURE/COVID-19 INFECTION Diagnosis Discharge Diagnosis (1) Benign essential hypertension: Status: Chronic Code(s): I10 - Essential (primary) hypertension (2) COPD (chronic obstructive pulmonary disease): Status: Chronic Code(s): J44.9 - Chronic obstructive pulmonary disease, unspecified Qualifiers: Emphysema type: unspecified Qualified Code(s): J43.9 - Emphysema, unspecified (3) Asthma: Status: Chronic Code(s): J45.909 - Unspecified asthma, uncomplicated Qualifiers: Asthma severity: unspecified severity Asthma complication type: uncomplicated Qualified Code(s): J45.909 - Unspecified asthma, uncomplicated (4) Hypoxia: Status: Acute Code(s): R09.02 - Hypoxemia (5) COVID-19: Status: Acute Code(s): U07.1 - COVID-19 Medications at Discharge Home Medications albuterol sulfate [Ventolin HFA] 2 puff INHALATION Q4H PRN PRN 08/28/15 montelukast 10 mg PO QHS 02/25/18 Trelegy Ellipta 1 inh INHALATION DAILY 05/01/21 fluticasone propionate 2 spray INTRANASAL QHS 05/01/21 dexamethasone [Decadron] 6 mg PO DAILY #9 tab 05/04/21 Hospital Course Operations None Procedures None Summary of Care Provided Minutes Spent on Discharge: 45 Hospital Course: Patient is a 65 y/o female with a PMh as outlined who was admitted via the ED on 05/01/2021 with a complaint of shortness of breath for 2 weeks prior to admission. SHe had been vaccinated against COVID with the Pfizer vaccine, and said her daughter and son in law had had covid and recovered. She tested positive for covid, and received the monoclonal antibody on 04/27/2021. Her saturation was however worsening, so she came in to the ED. chest x-ray showed increased hilar markings with no specific infiltrate seen. She was admitted and managed for acute hypoxic respiratory failure due to COVID-19 pneumonia and started on oral Decadron. She was also put on breathing treatments with bronchodilators. She was not put on remdesivir as she was out of the window for this. She was also put on fluids on account of orthostatic hypotension. Her shortness of breath gradually improved and she felt much better. She had a walking pulse ox on 05/04/2021 which showed that she qualified for 2 L of oxygen. She remained stable and was discharged home on 05/04/2021. She is to follow-up with her primary care doctor in 1 to 2 weeks. She is to remain in self isolation till 04/20/2021, to complete a 20 day course of self isolation. Patient was seen and examined prior to discharge. She had no complaints and felt well. Review of symptoms otherwise negative. Labs and vitals reviewed. Home medication reviewed and reconciled. Physical Exam Const alert, oriented x3 and no apparent distress General Appearance: cooperative and comfortable Orientation / Consciousness: awake Exam Limitations: no limitations HEENT normocephalic, head/scalp atraumatic, hearing grossly normal bilaterally and moist oral mucous membranes Eyes PERRL, EOMs intact bilaterally and conjunctivae normal Neck no lymphadenopathy and supple Resp Resp Narrative: diminished breath sounds bibasally, no wheezes or crackles. On 1L of oxygen. Cardio regular rate, regular rhythm, S1 normal heart sound, S2 normal heart sound and no murmurs GI normal to inspection, nondistended, normoactive bowel sounds, soft to palpation, non-tender and non-distended Skin no rashes or lesions noted Neuro oriented x3, CN's II-XII intact bilaterally and moves all extremities Sensorium / Orientation: awake and alert Psych affect normal Weight / BMI Weight Weight: 146 lb 15.997 oz Body Mass Index (BMI) 25.2 ABG / Lab / Microbiology Data Result Diagrams: 05/02/21 06:44 05/02/21 06:44 Microbiology: Microbiology 05/02/21 15:33 Sputum, Expectorated/Coughed Gram Stain - Final 05/02/21 15:33 Sputum, Expectorated/Coughed Respiratory Culture - Preliminary Yeast 05/01/21 12:40 Blood Culture (Wb) - Arm Right Blood Culture - Preliminary No growth in 48 hours. 05/01/21 12:33 Blood Culture (Wb) - Anticubital Left Blood Culture - Preliminary No growth in 48 hours. 05/01/21 19:40 Mucosa - Nasopharyngeal Respiratory Panel (PCR) - Final 05/01/21 21:24 Urine, Clean Catch Legionella Antigen - Final 05/01/21 21:24 Urine, Clean Catch Streptococcus pneumoniae Antigen (M - Final 05/01/21 13:12 Nasal Secretion SARS-CoV-2 Antigen (Rapid) - Final SARS-CoV-2 (COVID 19) D/C Instructions Discharge Diet: Low fat / Low cholesterol Discharge Activity: Return to Normal Activity Weight Bearing Status: Weight bearing as tolerated Call your doctor if you observe: Fever of 101 or Higher, Shortness of breath, Dizziness, Swelling in the ankles, Chest pain and Increased palpitations (irregular heartbeat) Meaningful Use Info Meaningful Use Diagnoses (Choose all that apply): None applicable Discharge Plan Admission Admit Date/Time: 05/01/21 16:13 Primary Reason for Your Visit: COVID 19 infection with shortness of breath Attending Provider: Gabby Sutherland Primary Care Provider: Julio Draper Instructions Patient Instructions: Coronavirus Disease 2019 (COVID-19): Overview Additional Instructions / Restrictions: remain in self isolation till 04/20/2021. Discharge Orders/Prescriptions Prescriptions: New dexamethasone [Decadron] 6 mg tablet 6 mg PO DAILY Qty: 9 RF: 0 Continued albuterol sulfate [Ventolin HFA] 1 INHALER inhaler 2 puff inhalation Q4H PRN PRN (Reason: Shortness Of Breath) RF: 0 montelukast 10 MG tablet 10 mg PO QHS RF: 0 fluticasone propionate 50 mcg/actuation spray,suspension 2 spray INTRANASAL QHS RF: 0 Trelegy Ellipta 100-62.5-25 mcg blister with device 1 inh INHALATION DAILY RF: 0 Discontinued prednisone 10 mg tablet See Taper mg PO DAILY RF: 0 Referrals / Follow Up: Julio Draper MD [Primary Care Provider] - Within 2 Weeks Disposition Disposition (needs filled in before D/C Order can be placed): Home, Self Care Charges/Coding Visit Charges Inpatient E&M: 85398 Disch Hosp
--- NOTE | 2021-05-04 12:29 | CASEMGMT ---
Pt qualifies for home O2. Faxed referral to [facility] [place]. TC to [facility] [place], spoke with Tad who is aware of referral and that tank was taken from stock.
--- NOTE | 2021-05-05 15:02 | CASEMGMT ---
JAMI GUERRERO Discharge Follow Up Phone Call: AIDA: Severiano Strata:3 Call Date: 05/05/21 Discharge Date: 05/04/21 Time of Call:1502 Duration:3 min Admitting Dx:TERRY FARRELL CM completed follow up phone call after recent hospitalization. Pt states she is doing well. States she is tired. She has a virtual appt with her PCP office tomorrow. She is quarantining and is aware of end date. Pt reports her pulse ox is 92%. Her O2 was delivered without difficulty. She was able to bulk picker her new rx. Pt has no further questions or concerns regarding her dc instructions or medications at this time.
== END 2021-05-04 13:47 | disposition home or self-care (01) | DRG 177 ==
LOC: ED 16:27 → MS3 16:42
PROVIDERS: Admitting Provider Internal Medicine; Emergency Provider Emergency Medicine; PCP Internal Medicine; Visit Provider Student in an Organized Health Care Education/Training Program
DX: U07.1 COVID-19 (principal); J96.01 Acute respiratory failure with hypoxia; J44.0 Chronic obstructive pulmonary disease with (acute) lower respiratory infection; I10 Essential (primary) hypertension; I95.1 Orthostatic hypotension; Z87.891 Personal history of nicotine dependence
CPT/HCPCS: 36415; 71045; 80053; 83605; 83880; 85025; 87040; 87070; 87205; 87426; 87449; 87633; 94640; 94762; 97802; 99251; 99285; J7030; A4216; G0463

== ENCOUNTER 2021-06-08 14:35 | Emergency (ER) | payer OTHER, SELFPAY ==
[2021-06-08 14:35] VITALS: BP 126/86; PULSE 91; RESP 20; TEMP 35.8; O2SAT 96; BMI 26.1
[2021-06-08 15:51] VITALS: O2SAT 100
[2021-06-08 15:52] VITALS: O2SAT 98
--- NOTE | 2021-06-08 15:55 | CT_ITS ---
STUDY: CTA CHEST REASON FOR EXAM: Female, 66 years old. SOB post covid RADIATION DOSAGE (If Supplied By Facility): CTDIvol = ( 8.48 ) mGy, DLP = ( 421.17 ) mGycm TECHNIQUE: The examination was performed with the intravenous administration of IV 100mL Isovue-370. Post-processing of the angiographic images was performed, with multiplanar reformation and 3D reconstruction. Individualized dose optimization techniques were used for this CT. COMPARISON: Chest CTA dated March 07, 2015. Chest x-ray dated May 01, 2021 FINDINGS: The lungs are hyperinflated with scattered interstitial scarring and cystic emphysematous changes. A small focus of groundglass edema is present in the inferior aspect of the right upper lobe and right lung base. Otherwise no visualized consolidation. Small calcified granuloma noted in the superior segment of the right lower lobe. Normal enhancement of the main pulmonary artery and right and left pulmonary arteries. Normal enhancement of the bilateral peripheral pulmonary arteries. There is no demonstrated pulmonary embolism. There is atherosclerotic calcification of the aortic arch with tortuosity. There is no demonstrated aortic dissection. Normal heart size and pericardium. Normal mediastinum. Normal hilar regions. Normal visualized trachea and bronchi. The lungs are well expanded. Normal pleura. Normal chest wall structures. There are degenerative changes of thoracic spine. Right shoulder prosthesis noted. Normal visualized upper abdomen. CT/CTA Chest W/WO Contrast IMPRESSION: 1. No demonstrated pulmonary embolism or arterial dissection. 2. The lungs are hyperinflated with scattered interstitial scarring and cystic emphysematous changes. A small focus of groundglass edema is present in the inferior aspect of the right upper lobe and right lung base. 3. Otherwise no visualized consolidation. Small calcified granuloma noted in the superior segment of the right lower lobe. Electronically Signed: Jean-Pierre Huston MD at 18:09 EST , Service support ,
--- NOTE | 2021-06-08 15:56 | EKG12_ITS ---
Test Reason : SOB Blood Pressure : / mmHG Vent. Rate : 075 BPM Atrial Rate : 075 BPM P-R Int : 198 ms QRS Dur : 082 ms QT Int : 396 ms P-R-T Axes : 081 072 064 degrees QTc Int : 442 ms Normal sinus rhythm Poor R wave progression Confirmed by FANNY DORANTES, LORRAINE ([id number]), news copy editor RACHEL APARICIO ([id number]) on 06/10/2021 10:42:03 AM Referred By: STEPHANIE Confirmed By:LORRAINE ESCOBEDO MD
--- NOTE | 2021-06-08 15:57 | ED.VIS.DYS ---
HPI History of Present Illness Chief Complaint: Shortness of Breath Informant: patient Narrative Narrative: Patient presents with some slight worsening of her dyspnea. This patient had Covid the end of April. She had outpatient monoclonal treatment which did not help. She ended up coming the hospital. When she went home, she did go home on 2 L of oxygen. Although she has chronic COPD she had not been on oxygen prior. She has been slowly recovering. She states she has been working 8 hours a day from home the last 2 weeks and overall been doing well. However, the last 3 to 4 days she has noticed that her dyspnea seems to be worsening. She gets short of breath walking across the room. She is having some more wheezing she believes. No sputum production or hemoptysis. No chest pain. No leg pain or swelling. She had an oxygen level at 80% walking at home although we walked her with 2 L here and she only went down to 92%. [facility] Medical History Asthma Asthma Benign essential hypertension COPD (chronic obstructive pulmonary disease) COPD (chronic obstructive pulmonary disease) COVID-19 Hypoxia Loose, teeth Pneumonia due to COVID-19 virus Home Medications albuterol sulfate [Ventolin HFA] 2 puff INHALATION Q4H PRN PRN 08/28/15 [History Last Taken 05/01/21] montelukast 10 mg PO QHS 02/25/18 [History Last Taken 04/30/21] Trelegy Ellipta 1 inh INHALATION DAILY 05/01/21 [History Last Taken 05/01/21] fluticasone propionate 2 spray INTRANASAL QHS 05/01/21 [History Last Taken 04/30/21] dexamethasone [Decadron] 6 mg PO DAILY #9 tab 05/04/21 [Rx Last Taken Unknown] prednisone 60 mg PO DAILY #15 tab 06/08/21 [Rx Last Taken Unknown] Allergy/AdvReac Type Severity Reaction Status Date / Time cephalexin monohydrate Allergy Chest Verified 06/08/21 14:37 [From Keflex] tightness Surgical History History of herniorrhaphy Hx of cholecystectomy Hx of tonsillectomy Social History adopted: Yes household members: family housing: house Smoking Status: Former smoker alcohol intake: never substance use type: does not use ROS ROS ED Constitutional Constitutional ED: Denies chills or fever(s) Eyes Eyes: Denies blurry vision ENT ENT ED: Denies rhinorrhea or sore throat Cardiovascular Cardiovascular: Denies chest pain or palpitations Respiratory/Chest Respiratory/Chest: Reports cough, dyspnea and dyspnea on exertion; Denies sputum Gastrointestinal Gastrointestinal: Denies nausea or vomiting Genitourinary Genitourinary ED: Denies dysuria Musculoskeletal Musculoskeletal: Denies myalgias Integumentary Denies rash Neurologic Neurologic: Denies headache(s) or weakness Endocrine Endocrinology: Denies polydipsia or polyuria Hematologic/Lymphatic Hematologic/Lymphatic: Denies easy bleeding or easy bruising Allergic/Immunologic Allergic/Immunologic ED: Denies mouth swelling or urticaria EXAM Physical Exam Const Vital Signs: 06/08/21 14:35 06/08/21 15:51 06/08/21 16:17 Temperature 96.5 F L Temperature Source Temporal Pulse Rate 91 85 Respiratory Rate 20 H 24 H Respiratory Effort Short of Breath Short of Breath Labored Respiratory Depth Normal Respiratory Pattern Tachypnea Blood Pressure 126/86 H Blood Pressure Mean 99 Pulse Ox 96 95 Oxygen Delivery Method Nasal Cannula Nasal Cannula Nasal Cannula Oxygen Flow Rate (L/min) 2 2 2 Fraction of Inspired Oxygen (FIO2) 97 06/08/21 17:18 Temperature Temperature Source Pulse Rate Respiratory Rate 16 Respiratory Effort Respiratory Depth Respiratory Pattern Blood Pressure 114/58 L Blood Pressure Mean 76 Pulse Ox 100 Oxygen Delivery Method Nasal Cannula Oxygen Flow Rate (L/min) 2 Fraction of Inspired Oxygen (FIO2) Patient does present with some increased work of breathing clinically. She does carry on a normal conversation though. Positive well nourished and well developed General Appearance ED: well developed; Negative for pallor HEENT Reports moist mucous membranes atraumatic; Negative for trauma Eyes General Eye ED: Negative for pale conjunctiva or scleral icterus Neck no JVD Resp Resp Narrative: Patient does have a slight increased work of breathing. If I have her take a deep breath and blow out she has an end expiratory wheeze. She has overall diminished sounds. She also has some rales are mildly coarse breath sounds at both bases. Auscultation: rales, wheezes and diminished lung sounds Cardio regular rate and regular rhythm GI non-tender Palpation: soft Back/Spine no CVA tenderness Extremity normal to inspection General Extremety ED: Negative for edema or tenderness General Extremity: Negative for edema Neuro Sensorium / Orientation: alert Psych mental status grossly normal Skin General Skin Exam: Negative for pallor Lesions: no lesions Rashes: no rashes MDM MDM MDM Narrative Medical decision making narrative: Patient CBC shows minimal nonspecific elevation of white count. Electrolytes and troponin are negative. CAT scan showed no sign of pulmonary embolism. There was some mild groundglass changes but no acute consolidation. Patient is feeling better with treatment. Her saturations are 97 to 100%. She would like to go home. I think this is reasonable. I think this is likely a COPD exacerbation so we will get her on steroids. She has oxygen at home. We discussed reasons to return. Lab Data Attestation: I reviewed the patient's lab results. Labs: Laboratory Results - last 24 hr 06/08/21 06/08/21 16:10 16:10 WBC 12.8 H RBC 4.45 Hgb 13.1 Hct 40.8 MCV 91.7 MCH 29.4 MCHC 32.1 RDW Std Deviation 42.4 RDW Coeff of Laly 12.6 Plt Count 404 MPV 9.2 Immature Gran % (Auto) 0.400 Neut % (Auto) 68.4 Lymph % (Auto) 20.8 Garrard % (Auto) 8.8 Eos % (Auto) 1.3 Baso % (Auto) 0.3 Absolute Neuts (auto) 8.8 H Absolute Lymphs (auto) 2.66 Nucleated RBC % 0 Sodium 140 Potassium 3.7 Chloride 102 Carbon Dioxide 32.0 Anion Gap 6 BUN 16 Creatinine 0.90 Estim Creat Clear Calc 53.81 Est GFR (MDRD) Af Amer 81 Est GFR (MDRD) Non-Af 67 BUN/Creatinine Ratio 17.7 Glucose 92 Calcium 9.7 Troponin I High Sens 6 Radiography Diagnostic Testing: Clinical Impression(s) from Imaging Studies Chest CTA 06/08/21 15:55 IMPRESSION: 1. No demonstrated pulmonary embolism or arterial dissection. 2. The lungs are hyperinflated with scattered interstitial scarring and cystic emphysematous changes. A small focus of groundglass edema is present in the inferior aspect of the right upper lobe and right lung base. 3. Otherwise no visualized consolidation. Small calcified granuloma noted in the superior segment of the right lower lobe. Electronically Signed: Jean-Pierre Huston MD at 18:09 EST , Service support , Discharge Plan Triage Chief Complaint: Shortness of Breath ED Provider: Ja Medina Dx/Rx/DC Orders Clinical Impression: COPD with acute exacerbation Instructions: ED COPD Flare Prescriptions: New prednisone 20 MG tablet 60 mg PO DAILY Qty: 15 RF: 0 No Action albuterol sulfate [Ventolin HFA] 1 INHALER inhaler 2 puff inhalation Q4H PRN PRN (Reason: Shortness Of Breath) RF: 0 montelukast 10 MG tablet 10 mg PO QHS RF: 0 fluticasone propionate 50 mcg/actuation spray,suspension 2 spray INTRANASAL QHS RF: 0 Trelegy Ellipta 100-62.5-25 mcg blister with device 1 inh INHALATION DAILY RF: 0 dexamethasone [Decadron] 6 mg tablet 6 mg PO DAILY Qty: 9 RF: 0 Primary Care Provider: Julio Draper Referrals: Julio Draper MD [Primary Care Provider] - 1-2 Days if not improving Disposition Disposition: Home, Self Care
[2021-06-08 16:17] VITALS: PULSE 85; RESP 24; O2SAT 95
[2021-06-08 16:17] LABS: Absolute Lymphocyte Count 2.66 X10^3/uL (0.83-4.51); Absolute Neutrophil Count 8.8 X10^3/uL (2.0-7.7); Basophil# 0.04 X10^3/uL; Basophil% 0.3 % (0-1); Eosinophil# 0.17 X10^3/uL; Eosinophils% 1.3 % (0-5); Hematocrit 40.8 % (37-47); Hemoglobin 13.1 g/dL (12.0-15.0); Lymphocyte # 2.66 X10^3/ul (0.83-4.51); Lymphocyte % 20.8 % (19-41); Mean Corp Hgb Conc 32.1 g/dL (32-36); Mean Corpuscular Hgb 29.4 pg (27.0-32.0); Mean Corpuscular Volume 91.7 fL (81-99); Mean Platelet Vol. 9.2 fl (6.2-12.0); Monocyte# 1.13 X10^3/uL; Monocyte% 8.8 % (0-10); NRBC Flagged by Analyzer 0 % (0-5); Neutrophil # 8.75 X10^3/uL (2.7-7.7); Neutrophil % 68.4 % (47-70); Platelet Count 404 K/mm3 (150-450); RBC Distribution Width CV 12.6 % (11.6-14.6); RBC Distribution Width SD 42.4 fl (35.1-43.9); Red Blood Count 4.45 M/mm3 (4.2-5.4); White Blood Count 12.8 K/mm3 (4.4-11.0)
[2021-06-08] MEDS: Albuterol 2.5 MG/3 ML VIAL.NEB. INHALATION (16:17)
[2021-06-08] MEDS: Ipratropium/Albuterol Sulfate 3 ML AMPUL.NEB INHALATION (16:17)
[2021-06-08 16:36] LABS: Anion Gap 6 (5-15); BUN 16 mg/dL (7-18); BUN/Creat Ratio 17.7 RATIO (10-20); Calcium,Total 9.7 mg/dL (8.5-10.1); Chloride 102 mmol/L (98-107); EST Glomerular Filtration Rate 67 mL/min (>60); Est Glom Filt Rate - Afr Amer 81 mL/min (>60); Estimated Creatinine Clearance 53.81 ml/min; Glucose 92 mg/dL (74-106); Potassium 3.7 mmol/L (3.5-5.1); Sodium Level 140 mmol/L (136-145); Troponin-I HS 6 pg/mL (3.0-54.0)
[2021-06-08 17:18] VITALS: BP 114/58; RESP 16; O2SAT 100
[2021-06-08] MEDS: MethylPREDNISolone 125 MG/2 ML Vial IV (18:36)
[2021-06-08 19:03] VITALS: BP 126/63; PULSE 74; RESP 16; O2SAT 94
== END 2021-06-08 19:08 | disposition home or self-care (01) ==
PROVIDERS: Emergency Provider Emergency Medicine; PCP Internal Medicine
DX: J44.1 Chronic obstructive pulmonary disease with (acute) exacerbation (principal); I10 Essential (primary) hypertension; Z86.16 Personal history of COVID-19; Z87.01 Personal history of pneumonia (recurrent); Z79.899 Other long term (current) drug therapy; Z87.891 Personal history of nicotine dependence
CPT/HCPCS: 71275; 80048; 84484; 85025; 93005; 94640; 96374; 99251; 99285; Q9967; A4216; G0463

== ENCOUNTER 2021-11-02 12:33 | Emergency (ER) | payer OTHER, SELFPAY ==
[2021-11-02 12:34] VITALS: BP 149/84; PULSE 81; RESP 18; TEMP 35.7; O2SAT 94; BMI 26.7
--- NOTE | 2021-11-02 12:48 | ED.RN ---
Patient states I have COPD and I have home oxygen available to wear. Lately, I have been sleeping in a chair because its hard to breathe. I have put my pulse ox on when I walk and my oxygen drops to 84% but once I sit down it comes right back up. Patient currently changing into gown at this time.
[2021-11-02 13:12] VITALS: O2SAT 86
[2021-11-02 13:13] VITALS: O2SAT 96
[2021-11-02 13:14] VITALS: O2SAT 86
--- NOTE | 2021-11-02 13:58 | EKG12_ITS ---
Test Reason : Blood Pressure : / mmHG Vent. Rate : 072 BPM Atrial Rate : 072 BPM P-R Int : 212 ms QRS Dur : 086 ms QT Int : 396 ms P-R-T Axes : 065 069 054 degrees QTc Int : 433 ms Sinus rhythm with 1st degree A-V block Poor R wave progression Confirmed by FANNY DORANTES, LORRAINE ([id number]), senior technical editor RACHEL APARICIO ([id number]) on 11/05/2021 10:14:49 AM Referred By: LILIANA Confirmed By:LORRAINE ESCOBEDO MD
[2021-11-02 14:14] LABS: Absolute Lymphocyte Count 2.41 X10^3/uL (0.83-4.51); Absolute Neutrophil Count 8.6 X10^3/uL (2.0-7.7); Basophil# 0.07 X10^3/uL; Basophil% 0.6 % (0-1); Eosinophil# 0.32 X10^3/uL; Eosinophils% 2.6 % (0-5); Hematocrit 42.3 % (37-47); Hemoglobin 13.7 g/dL (12.0-15.0); Lymphocyte # 2.41 X10^3/ul (0.83-4.51); Lymphocyte % 19.7 % (19-41); Mean Corp Hgb Conc 32.4 g/dL (32-36); Mean Corpuscular Hgb 29.3 pg (27.0-32.0); Mean Corpuscular Volume 90.6 fL (81-99); Mean Platelet Vol. 10.1 fl (6.2-12.0); Monocyte# 0.79 X10^3/uL; Monocyte% 6.5 % (0-10); NRBC Flagged by Analyzer 0 % (0-5); Neutrophil # 8.61 X10^3/uL (2.7-7.7); Neutrophil % 70.4 % (47-70); Platelet Count 362 K/mm3 (150-450); RBC Distribution Width CV 12.7 % (11.6-14.6); RBC Distribution Width SD 42.1 fl (35.1-43.9); Red Blood Count 4.67 M/mm3 (4.2-5.4); White Blood Count 12.2 K/mm3 (4.4-11.0)
--- NOTE | 2021-11-02 14:17 | EDS_ITS ---
HPI History of Present Illness Chief Complaint: Shortness of Breath Informant: patient Narrative Narrative: 66-year-old female presenting to the emergency room with shortness of breath and dizziness. Patient states that she has a history of COPD and since COVID in April 2021 has been on as needed home oxygen. The patient states that she has had more shortness of breath over the past couple days and did not really get any relief from her nebulizers. She is went to urgent care today because when she went to get out of bed this morning she felt the room spinning and had nausea and vomiting and it was persisting. She has had no change in sputum. No reported fevers. At urgent care she tells me she had a chest x-ray that was reported as negative. Unfortunately I did not get a phone call or fax regarding the results/evaluation. [facility] Medical History (Updated 11/02/21 @ 15:[address] Sammy Key DO) Anxiety Asthma Benign essential hypertension Benign essential tremor COPD (chronic obstructive pulmonary disease) Former tobacco use Pneumonia due to COVID-19 virus Home Medications albuterol sulfate [Ventolin HFA] 2 puff INHALATION Q4H PRN PRN 08/28/15 [History Last Taken 05/01/21] montelukast 10 mg PO QHS 02/25/18 [History Last Taken 04/30/21] Trelegy Ellipta 1 inh INHALATION DAILY 05/01/21 [History Last Taken 05/01/21] fluticasone propionate 2 spray INTRANASAL QHS 05/01/21 [History Last Taken 04/30/21] dexamethasone [Decadron] 6 mg PO DAILY #9 tab 05/04/21 [Rx Last Taken Unknown] prednisone 60 mg PO DAILY #15 tab 06/08/21 [Rx Last Taken Unknown] diazepam 5 mg PO Q8 PRN #10 tab 11/02/21 [Rx Last Taken Unknown] ondansetron 4 mg PO Q6H PRN PRN #10 tab 11/02/21 [Rx Last Taken Unknown] Allergy/AdvReac Type Severity Reaction Status Date / Time cephalexin monohydrate Allergy Chest Verified 11/02/21 12:35 [From Keflex] tightness Surgical History (Updated 11/02/21 @ 15:[address] Caryl Mccann MD) H/O bilateral salpingectomy History of herniorrhaphy Hx of cholecystectomy Hx of tonsillectomy Social History adopted: Yes household members: family housing: house Smoking Status: Former smoker alcohol intake: never substance use type: does not use ROS ROS ED Constitutional Constitutional ED: Denies chills, fever(s) or weight loss Eyes Eyes: Denies change in vision or diplopia ENT ENT ED: Denies ear pain, rhinorrhea or sore throat Cardiovascular Cardiovascular: Denies chest pain, orthopnea, palpitations or racing heartbeat Respiratory/Chest Respiratory/Chest: Reports cough and dyspnea; Denies orthopnea Gastrointestinal Gastrointestinal: Reports nausea and vomiting; Denies abdominal pain or diarrhea Genitourinary Genitourinary ED: Denies dysuria, hematuria or urinary frequency Musculoskeletal Musculoskeletal: Denies arthralgias or myalgias Integumentary Denies abscess or rash Neurologic Neurologic: Reports other Details: Dizziness ; Denies headache(s) or weakness Psychiatric Psychiatric: Denies anxiety, depression, suicidal ideation or suicidal thoughts Endocrine Endocrinology: Denies polydipsia, polyphagia or polyuria Allergic/Immunologic Allergic/Immunologic ED: Denies mouth swelling, tongue swelling or urticaria EXAM Physical Exam Const Vital Signs: 11/02/21 12:34 11/02/21 13:12 11/02/21 13:13 Temperature 96.2 F L Temperature Source Temporal Pulse Rate 81 Respiratory Rate 18 Respiratory Effort Short of Breath Labored Respiratory Depth Shallow Respiratory Pattern Tachypnea Blood Pressure 149/84 H Blood Pressure Mean 105 Pulse Ox 94 86 Oxygen Delivery Method Room Air Room Air Room Air 11/02/21 14:22 11/02/21 15:13 Temperature Temperature Source Pulse Rate 84 83 Respiratory Rate 16 11 L Respiratory Effort Respiratory Depth Respiratory Pattern Normal Blood Pressure 148/66 H Blood Pressure Mean 93 Pulse Ox 96 Oxygen Delivery Method Room Air Positive well nourished and well developed General Appearance ED: well developed HEENT Reports normocephalic, head/scalp atraumatic, TM's clear and moist mucous membranes atraumatic Tympanic Membrane ED: Yes TM's clear Eyes PERRL and EOMs intact bilaterally Neck no lymphadenopathy, supple and no JVD Resp normal respiratory effort Resp Narrative: There are few scattered expiratory wheezes Cardio regular rate, regular rhythm and no murmurs GI normal to inspection, nondistended, normoactive bowel sounds, non-tender and non-distended Auscultation: normoactive bowel sounds Palpation: soft Back/Spine no CVA tenderness, normal ROM and normal to inspection Extremity normal to inspection General Extremety ED: Negative for edema General Extremity: Negative for edema Neuro oriented x3 and CN's II-XII intact bilaterally Sensorium / Orientation: alert Motor Exam: strength 5/5 throughout Psych mental status grossly normal Mood & Affect: Negative for depressed or tearful Skin no rashes or lesions noted and no wounds MDM MDM MDM Narrative Medical decision making narrative: White count slightly elevated nonspecifically 12.2. Troponin is negative his CMP is normal. D-dimer 1.09. Therefore CTA of the chest was obtained. This was negative for pulmonary embolism. No infiltrate seen. Patient is no longer vertiginous. She received a DuoNeb. We will try a burst course of prednisone. 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 Patient is comfortable with this plan. From a vertigo standpoint I will write for the patient to have some diazepam and Zofran. If this becomes a more recurrent problem she should follow-up with her primary care doctor or ENT. Return if worsening or concerns Lab Data Attestation: I reviewed the patient's lab results. Labs: Laboratory Results - last 24 hr 11/02/21 11/02/21 11/02/21 13:10 13:10 13:10 WBC 12.2 H RBC 4.67 Hgb 13.7 Hct 42.3 MCV 90.6 MCH 29.3 MCHC 32.4 RDW Std Deviation 42.1 RDW Coeff of Laly 12.7 Plt Count 362 MPV 10.1 Immature Gran % (Auto) 0.200 Neut % (Auto) 70.4 H Lymph % (Auto) 19.7 [place] % (Auto) 6.5 Eos % (Auto) 2.6 Baso % (Auto) 0.6 Absolute Neuts (auto) 8.6 H Absolute Lymphs (auto) 2.41 Nucleated RBC % 0 D-Dimer Quant (PE/DVT) 1.09 H* Sodium 139 Potassium 3.6 Chloride 105 Carbon Dioxide 28.0 Anion Gap 6 BUN 12 Creatinine 0.87 Estim Creat Clear Calc 55.67 Est GFR (MDRD) Af Amer 84 Est GFR (MDRD) Non-Af 69 BUN/Creatinine Ratio 13.8 Glucose 89 Calcium 9.4 Total Bilirubin 0.60 AST 19 ALT 20 Alkaline Phosphatase 116 Troponin I High Sens < 3 L Total Protein 7.9 Albumin 3.7 Globulin 4.2 Albumin/Globulin Ratio 0.9 Radiography Diagnostic Testing: Clinical Impression(s) from Imaging Studies Chest CTA 11/02/21 14:35 IMPRESSION: No evidence of pulmonary embolism. Findings suggestive of mild scarring at the lung bases. Electronically Signed: Michael Gaxiola MD at 15:30 EDT , EKG Initial EKG: Attestation: I personally reviewed and interpreted this EKG as follows: Comments: Sinus rhythm with a first-degree AV block. ventricular rate of 72 bpm Prior EKG tracings: available for review Prior: Unchanged Discharge Plan Triage Chief Complaint: Shortness of Breath ED Provider: Sammy Key Dx/Rx/DC Orders Clinical Impression: Vertigo, COPD (chronic obstructive pulmonary disease) Instructions: ED Vertigo, Unspecified Prescriptions: New ondansetron [ondansetron] 4 MG tablet 4 mg PO Q6H PRN PRN (Reason: Nausea) Qty: 10 RF: 0 diazepam [diazepam] 5 MG tablet 5 mg PO Q8 PRN (Reason: Vertigo) Qty: 10 RF: 0 No Action albuterol sulfate [Ventolin HFA] 1 INHALER inhaler 2 puff inhalation Q4H PRN PRN (Reason: Shortness Of Breath) RF: 0 montelukast 10 MG tablet 10 mg PO QHS RF: 0 fluticasone propionate 50 mcg/actuation spray,suspension 2 spray INTRANASAL QHS RF: 0 Trelegy Ellipta 100-62.5-25 mcg blister with device 1 inh INHALATION DAILY RF: 0 dexamethasone [Decadron] 6 mg tablet 6 mg PO DAILY Qty: 9 RF: 0 prednisone 20 MG tablet 60 mg PO DAILY Qty: 15 RF: 0 Primary Care Provider: Julio Draper Referrals: Julio Draper MD [Primary Care Provider] - As Needed Disposition Disposition: Home, Self Care
[2021-11-02 14:22] VITALS: PULSE 84; RESP 16
[2021-11-02] MEDS: Ipratropium/Albuterol Sulfate 3 ML AMPUL.NEB INHALATION (14:22)
[2021-11-02 14:31] LABS: ALB/GLOB Ratio 0.9 RATIO (0.9-2.4); AST(SGOT) 19 U/L (15-37); Alanine Aminotransfer ALT/SGPT 20 U/L (13-56); Albumin, Serum 3.7 g/dL (3.2-5.0); Alkaline Phosphatase 116 U/L (45-117); Anion Gap 6 (5-15); BUN 12 mg/dL (7-18); BUN/Creat Ratio 13.8 RATIO (10-20); Calcium,Total 9.4 mg/dL (8.5-10.1); Chloride 105 mmol/L (98-107); Creatinine, Serum 0.87 mg/dL (0.55-1.02); EST Glomerular Filtration Rate 69 mL/min (>60); Est Glom Filt Rate - Afr Amer 84 mL/min (>60); Estimated Creatinine Clearance 55.67 ml/min; Globulin 4.2 g/dL (2.2-4.2); Glucose 89 mg/dL (74-106); Potassium 3.6 mmol/L (3.5-5.1); Protein, Total 7.9 g/dL (6.4-8.2); Sodium Level 139 mmol/L (136-145); Troponin-I HS < 3 pg/mL (3.0-54.0)
[2021-11-02 14:35] LABS: D-Dimer Quantitative (DVT/PE) 1.09 FEU/ug/m (0.27-0.49)
--- NOTE | 2021-11-02 14:35 | CT_ITS ---
STUDY: CTA CHEST REASON FOR EXAM: Female, 66 years old. Pulmonary embolism, elevated d dimer. Increasing shortness of breath. RADIATION DOSAGE (If Supplied By Facility): CTDIvol = ( 10.5 ) mGy, DLP = ( 413.17 ) mGycm TECHNIQUE: The examination was performed with the intravenous administration of IV 100mL Isovue-370. Post-processing of the angiographic images was performed, with multiplanar reformation and 3D reconstruction. Individualized dose optimization techniques were used for this CT. COMPARISON: Comparison is made with prior study dated 06/08/2021. FINDINGS: Normal enhancement of the main pulmonary artery and right and left pulmonary arteries. Normal enhancement of the bilateral peripheral pulmonary arteries. There is no demonstrated pulmonary embolism. Normal thoracic aorta and visualized great vessels. There is no demonstrated aortic dissection. Normal heart and pericardium. Normal mediastinum. Normal hilar regions. Normal visualized trachea and bronchi. The lungs are well expanded. Minimal degree of increasing markings at the lung bases to just above the linear atelectasis and/or scarring. Normal pleura. Normal chest wall structures. There are degenerative changes of thoracic spine. Normal visualized upper abdomen. CT/CTA Chest W/WO Contrast IMPRESSION: No evidence of pulmonary embolism. Findings suggestive of mild scarring at the lung bases. Electronically Signed: Michael Gaxiola MD at 15:30 EDT ,
[2021-11-02 15:13] VITALS: BP 148/66; PULSE 83; RESP 11; O2SAT 96
== END 2021-11-02 16:08 | disposition home or self-care (01) ==
PROVIDERS: Emergency Provider Emergency Medicine; PCP Internal Medicine; Visit Provider Emergency Medicine
DX: R42 Dizziness and giddiness (principal); J44.9 Chronic obstructive pulmonary disease, unspecified; Z87.891 Personal history of nicotine dependence; I10 Essential (primary) hypertension; I44.0 Atrioventricular block, first degree; G25.0 Essential tremor; Z86.16 Personal history of COVID-19; Z87.01 Personal history of pneumonia (recurrent); F41.9 Anxiety disorder, unspecified; Z79.899 Other long term (current) drug therapy
CPT/HCPCS: 71275; 80053; 84484; 85025; 85379; 93005; 94640; 99283; Q9967; A4216

== ENCOUNTER 2022-11-28 00:43 | Emergency (ER) | payer OTHER, SELFPAY ==
[2022-11-28 00:44] VITALS: BP 163/79; PULSE 104; RESP 28; TEMP 36.1; O2SAT 93; BMI 27.0
[2022-11-28 00:49] VITALS: O2SAT 97
[2022-11-28] MEDS: Aspirin 81 MG TAB.CHEW 162 MG PO (00:53)
[2022-11-28 01:00] LABS: Absolute Lymphocyte Count 2.94 X10^3/uL (0.83-4.51); Absolute Neutrophil Count 11.4 X10^3/uL (2.0-7.7); Basophil# 0.09 X10^3/uL; Basophil% 0.6 % (0-1); Eosinophil# 0.37 X10^3/uL; Eosinophils% 2.3 % (0-5); Hematocrit 42.1 % (37-47); Hemoglobin 13.1 g/dL (12.0-15.0); Lymphocyte # 2.94 X10^3/ul (0.83-4.51); Mean Corp Hgb Conc 31.1 g/dL (32-36); Mean Corpuscular Hgb 28.9 pg (27.0-32.0); Mean Corpuscular Volume 92.9 fL (81-99); Mean Platelet Vol. 9.5 fl (6.2-12.0); Monocyte# 1.44 X10^3/uL; Monocyte% 8.8 % (0-10); NRBC Flagged by Analyzer 0 % (0-5); Neutrophil # 11.39 X10^3/uL (2.7-7.7); Neutrophil % 69.6 % (47-70); Platelet Count 338 K/mm3 (150-450); RBC Distribution Width CV 13.2 % (11.6-14.6); RBC Distribution Width SD 45.1 fl (35.1-43.9); Red Blood Count 4.53 M/mm3 (4.2-5.4); White Blood Count 16.4 K/mm3 (4.4-11.0)
[2022-11-28 01:15] LABS: D-Dimer Quantitative (DVT/PE) 0.41 FEU/ug/m (0.27-0.49)
--- NOTE | 2022-11-28 01:15 | RAD_ITS ---
EXAM: XR CHEST, 1 VIEW CLINICAL INDICATION: chest pain TECHNIQUE: Frontal view of the chest. COMPARISON: 05/01/2021 FINDINGS: LUNGS AND PLEURAL SPACES: Unremarkable. No consolidation or edema. No pneumothorax. No effusion. HEART: Unremarkable. Cardiac silhouette not enlarged. MEDIASTINUM: Central airways and mediastinal contour are unremarkable. BONES/JOINTS: Prior surgical changes of the right shoulder. SOFT TISSUES: Unremarkable. RAD/Chest 1 View (Portable) IMPRESSION: No acute findings in the chest. Electronically Signed: Allen Curtis MD at 1:37 EDT ,
--- NOTE | 2022-11-28 01:15 | EDS_ITS ---
HPI History of Present Illness Chief Complaint: Chest Pain Narrative Narrative: 67-year-old female presenting with chest pain. She states is under her left breast. It radiates to her left arm. She feels nauseous. She states it started abruptly at midnight. She describes it as sharp. It is worse when she takes a deep breath. She states she does not have a history of cardiac disease that she knows of. Has not had any testing. Patient states she was recently treated with prednisone and azithromycin for COPD exacerbation. She states she finished these medications 2 days ago. She has not had a fever or chills. No nausea or vomiting. [facility] Medical History Anxiety Asthma Benign essential hypertension Benign essential tremor COPD (chronic obstructive pulmonary disease) Former tobacco use Pneumonia due to COVID-19 virus Home Medications albuterol sulfate 90 mcg/actuation aerosol inhaler (Ventolin HFA) 2 puff inhalation Q4H PRN PRN Shortness Of Breath 08/28/15 [History Last Taken 05/01/21] montelukast 10 mg tablet 10 mg PO QHS ALLERGIES 02/25/18 [History Last Taken 04/30/21] fluticasone fur. 100 mcg-umeclid 62.5 mcg-vilant 25 mcg inhalat.powder (Trelegy Ellipta) 1 inh inhalation DAILY COPD 05/01/21 [History Last Taken 05/01/21] fluticasone propionate 50 mcg/actuation nasal spray,suspension 2 spray intranasal QHS ALLERGIES 05/01/21 [History Last Taken 04/30/21] Allergy/AdvReac Type Severity Reaction Status Date / Time cephalexin monohydrate Allergy Chest Verified 11/02/21 12:35 [From Keflex] tightness Surgical History H/O bilateral salpingectomy History of herniorrhaphy Hx of cholecystectomy Hx of tonsillectomy Social History adopted: Yes household members: family housing: house Smoking Status: Former smoker alcohol intake: never substance use type: does not use ROS ROS ED Constitutional Constitutional ED: Denies chills or fever(s) Eyes Eyes: Denies change in vision or diplopia ENT ENT ED: Denies rhinorrhea or sore throat Cardiovascular Cardiovascular: Reports chest pain Respiratory/Chest Respiratory/Chest: Reports dyspnea Gastrointestinal Gastrointestinal: Reports nausea; Denies abdominal pain or constipation Genitourinary Genitourinary ED: Denies dysuria or hematuria Musculoskeletal Musculoskeletal: Denies arthralgias or back pain Integumentary Denies abscess Neurologic Neurologic: Denies headache(s) or paresthesias EXAM Physical Exam Const Vital Signs: 11/28/22 00:44 11/28/22 00:49 11/28/22 00:54 Temperature 97 F L Temperature Source Temporal Pulse Rate 104 H Respiratory Rate 28 H Respiratory Effort Labored Respiratory Pattern Tachypnea Blood Pressure 163/79 H Blood Pressure Mean 107 Pulse Ox 93 97 Oxygen Delivery Method Nasal Cannula Nasal Cannula Oxygen Flow Rate (L/min) 2 2 11/28/22 01:43 11/28/22 03:23 11/28/22 04:00 Temperature Temperature Source Pulse Rate 96 95 98 Respiratory Rate 21 H 16 19 H Respiratory Effort Respiratory Pattern Blood Pressure 161/55 H 133/70 H 132/67 H Blood Pressure Mean 90 91 Pulse Ox 96 97 99 Oxygen Delivery Method Nasal Cannula Nasal Cannula Oxygen Flow Rate (L/min) 2 2 Positive well nourished General Appearance ED: NAD; Negative for pallor HEENT Reports moist mucous membranes normocephalic and atraumatic Eyes PERRL and EOMs intact bilaterally Chest Wall inspection of chest normal Resp clear to auscultation bilaterally Resp Narrative: Tachypneic Cardio regular rhythm Rate: tachycardic GI normal to inspection, nondistended, normoactive bowel sounds Extremity normal to inspection Neuro oriented x3, CN's II-XII intact bilaterally and no sensory deficits noted Sensorium / Orientation: awake and alert Motor Exam: strength 5/5 throughout Psych mental status grossly normal Skin no rashes or lesions noted General Skin Exam: Negative for jaundice or pallor Heart Score History: Slightly/Non-Suspicious ECG: Normal Age: >/= 65 years Risk Factors: 1 or 2 Risk Factors Troponin: </= Normal Limit Score: 3 MDM MDM MDM Narrative Medical decision making narrative: 67-year-old female presenting with chest pain. Differential includes but is not limited to ACS, PE, pneumonia, pneumothorax, muscle strain, costochondritis. CBC to, hemoglobin, platelets, differential. BMP to assess renal function, el ectrolytes, glucose, anion gap. High-sensitivity troponin and EKG to assess for ischemia. D-dimer to assess for PE given she is tachycardic. EKG on my interpretation shows sinus tachycardia with a rate of 101 bpm without sign of ischemic change. Chest x-ray on my interpretation shows no acute cardiopulmonary process. Radiologist services and agrees. D-dimer negative. CBC cytosis of 16.4 however the patient previous on steroids and that this is likely the source. There is no left shift. Renal function electrolytes within normal limits. Initial troponin 6 and delta troponin is 6 as well. There is no significant interval change.d Lab Data Attestation: I reviewed the patient's lab results. Labs: Laboratory Results - last 24 hr 11/28/22 11/28/22 11/28/22 00:54 00:54 00:54 WBC 16.4 H RBC 4.53 Hgb 13.1 Hct 42.1 MCV 92.9 MCH 28.9 MCHC 31.1 L RDW Std Deviation 45.1 H RDW Coeff of Laly 13.2 Plt Count 338 MPV 9.5 Immature Gran % (Auto) 0.700 Neut % (Auto) 69.6 Lymph % (Auto) 18.0 L [place] % (Auto) 8.8 Eos % (Auto) 2.3 Baso % (Auto) 0.6 Absolute Neuts (auto) 11.4 H Absolute Lymphs (auto) 2.94 Nucleated RBC % 0 D-Dimer Quant (PE/DVT) 0.41 Sodium 141 Potassium 4.3 Chloride 104 Carbon Dioxide 31.0 Anion Gap 6 BUN 14 Creatinine 0.90 Estim Creat Clear Calc 53.10 Est GFR (MDRD) Af Amer 81 Est GFR (MDRD) Non-Af 67 BUN/Creatinine Ratio 15.6 Glucose 112 H Calcium 9.1 Troponin I High Sens 6 11/28/22 02:48 WBC RBC Hgb Hct MCV MCH MCHC RDW Std Deviation RDW Coeff of Laly Plt Count MPV Immature Gran % (Auto) Neut % (Auto) Lymph % (Auto) [place] % (Auto) Eos % (Auto) Baso % (Auto) Absolute Neuts (auto) Absolute Lymphs (auto) Nucleated RBC % D-Dimer Quant (PE/DVT) Sodium Potassium Chloride Carbon Dioxide Anion Gap BUN Creatinine Estim Creat Clear Calc Est GFR (MDRD) Af Amer Est GFR (MDRD) Non-Af BUN/Creatinine Ratio Glucose Calcium Troponin I High Sens 6 Radiography Diagnostic Testing: Clinical Impression(s) from Imaging Studies Chest X-Ray 11/28/22 01:15 IMPRESSION: No acute findings in the chest. Electronically Signed: Allen Curtis MD at 1:37 EDT Reading Location ID and State: [facility] / [place] Tel , Service support , Discharge Plan Triage Chief Complaint: Chest Pain ED Provider: Jaime Perdomo Dx/Rx/DC Orders Instructions: ED Chest Pain, Noncardiac Prescriptions: No Action albuterol sulfate [Ventolin HFA] 1 INHALER inhaler 2 puff inhalation Q4H PRN PRN (Reason: Shortness Of Breath) Label Comments: shortness of breath montelukast 10 MG tablet 10 mg PO QHS fluticasone propionate 50 mcg/actuation spray,suspension 2 spray INTRANASAL QHS Label Comments: Use 1 [place] in each nostril once daily. Trelegy Ellipta 100-62.5-25 mcg blister with device 1 inh INHALATION DAILY Label Comments: Inhale 1 Puff as instructed once daily. Primary Care Provider: Julio Draper Referrals: Julio Draper MD [Primary Care Provider] - Disposition Disposition: Home, Self Care
[2022-11-28 01:16] LABS: Anion Gap 6 (5-15); BUN 14 mg/dL (7-18); BUN/Creat Ratio 15.6 RATIO (10-20); Calcium,Total 9.1 mg/dL (8.5-10.1); Chloride 104 mmol/L (98-107); EST Glomerular Filtration Rate 67 mL/min (>60); Est Glom Filt Rate - Afr Amer 81 mL/min (>60); Glucose 112 mg/dL (74-106); Potassium 4.3 mmol/L (3.5-5.1); Sodium Level 141 mmol/L (136-145); Troponin-I HS (w/2H Reflex) 6 pg/mL (3.0-54.0)
[2022-11-28] MEDS: Ondansetron 4 MG/2 ML Vial IV (01:26)
[2022-11-28] MEDS: Morphine 4 MG/ML Syringe IV (01:26)
[2022-11-28 01:43] VITALS: BP 161/55; PULSE 96; RESP 21; O2SAT 96
[2022-11-28 02:50] LABS: Reflex Troponin-HS? (from REC) Y
[2022-11-28 03:12] LABS: Troponin-I HS 6 pg/mL (3.0-54.0)
[2022-11-28 03:23] VITALS: BP 133/70; PULSE 95; RESP 16; O2SAT 97
[2022-11-28 04:00] VITALS: BP 132/67; PULSE 98; RESP 19; O2SAT 99
== END 2022-11-28 04:10 | disposition home or self-care (01) ==
PROVIDERS: Emergency Provider Student in an Organized Health Care Education/Training Program; PCP Internal Medicine; Visit Provider Student in an Organized Health Care Education/Training Program
DX: R07.9 Chest pain, unspecified (principal); J44.9 Chronic obstructive pulmonary disease, unspecified; I10 Essential (primary) hypertension; Z87.891 Personal history of nicotine dependence; Z79.899 Other long term (current) drug therapy; J45.909 Unspecified asthma, uncomplicated; Z79.51 Long term (current) use of inhaled steroids; Z90.49 Acquired absence of other specified parts of digestive tract
CPT/HCPCS: 71045; 80048; 84484; 85025; 85379; 93005; 96374; 96375; 99284; A4216; J2405

== ENCOUNTER 2022-11-30 10:36 | Inpatient (IN) | payer OTHER, MEDICARE, SELFPAY ==
[2022-11-30] VITALS (13 sets, daily range): BP systolic 115–128; BP diastolic 58–63; PULSE 89–120; RESP 16–20; TEMP 35.8–38; O2SAT 92–100; BMI 26.8; BMI 26.9
--- NOTE | 2022-11-30 11:04 | EDS_ITS ---
HPI History of Present Illness Chief Complaint: Fever Detail of Chief Complaint: Fever, cough, dyspnea, nausea and vomiting negative COVID test November Onset/Context/Timing Onset: Days Context: Gradual Onset Timing: Continuous Quality: Dyspnea, dyspnea on exertion, pain with cough Location: Anterior left chest Current Severity: Mild Maximum Severity: Moderate Worsened by: Coughing Relieved by: Not coughing Associated Symptoms Associated Symptoms: Detailed HPI narrative Narrative Narrative: Patient is a 67-year-old woman with history of COPD/asthma requiring oxygen she was diagnosed with COVID in 2020. She has not smoked in 9 years. Her last admission was 2020. She was admitted for hypoxia at that time. Patient was seen this past weekend for left-sided chest pain that radiated to the left arm. Her work-up was negative. She states she had a COVID test that was negative on Tuesday. Her 's COVID test was negative as well. She has been having increased trouble breathing since the middle of last week. She now reports documented temperature to 101.1, productive cough with left-sided pain when she coughs. She states the symptoms are new since she was seen Tuesday morning. She denies history of PE or DVT. She denies leg pain, swelling discoloration. She complains of mild global headache. She denies photophobia, neck pain or neck stiffness. Patient has not required increased oxygen at rest. She states she cannot walk as far before she has to stop. She has not checked her pulse ox at home. Patient denies abdominal pain. Denies nausea and vomiting with no diarrhea. She is status postcholecystectomy. She denies prior history of bowel obstruction. She does endorse decreased urine output and orthostatics times. Prior similar symptoms: Yes Recent Illness/Hospitalization: Yes (Cardiac chest pain work-up on Tuesday.) [facility] Medical History Anxiety Asthma Benign essential hypertension Benign essential tremor COPD (chronic obstructive pulmonary disease) Former tobacco use Pneumonia due to COVID-19 virus Home Medications albuterol sulfate 90 mcg/actuation aerosol inhaler (Ventolin HFA) 2 puff inhalation Q4H PRN PRN Shortness Of Breath 08/28/15 [History Last Taken 11/30/22 10:00] montelukast 10 mg tablet 10 mg PO QHS ALLERGIES 02/25/18 [History Last Taken 11/29/22] fluticasone fur. 100 mcg-umeclid 62.5 mcg-vilant 25 mcg inhalat.powder (Trelegy Ellipta) 1 inh inhalation DAILY COPD 05/01/21 [History Last Taken 11/30/22] fluticasone propionate 50 mcg/actuation nasal spray,suspension 2 spray intranasal QHS ALLERGIES 05/01/21 [History Last Taken 11/28/22] Allergy/AdvReac Type Severity Reaction Status Date / Time cephalexin monohydrate Allergy Chest Verified 11/30/22 10:40 [From Keflex] tightness Surgical History H/O bilateral salpingectomy History of herniorrhaphy Hx of cholecystectomy Hx of tonsillectomy Social History adopted: Yes household members: family housing: house Smoking Status: Former smoker alcohol intake: never substance use type: does not use ROS ROS ED Constitutional Constitutional ED: Reports chills, fever(s) and sweats Eyes Eyes: Denies blurry vision, change in vision or diplopia ENT ENT ED: Denies ear pain, rhinorrhea or sore throat Cardiovascular Cardiovascular: Reports chest pain; Denies orthopnea, palpitations, paroxysmal nocturnal dyspnea or racing heartbeat Respiratory/Chest Respiratory/Chest: Reports cough, dyspnea and dyspnea on exertion; Denies orthopnea or paroxysmal nocturnal dyspnea Gastrointestinal Gastrointestinal: Reports nausea and vomiting; Denies abdominal pain, constipation, diarrhea or melena Genitourinary Genitourinary ED: Reports other Details: Decreased urine output ; Denies dysuria, hematuria or urinary frequency Musculoskeletal Musculoskeletal: Reports arthralgias and myalgias; Denies back pain or neck pain Integumentary Denies abscess or rash Neurologic Neurologic: Reports headache(s) and weakness; Denies paresthesias Psychiatric Psychiatric: Reports anxiety Endocrine Endocrinology: Denies cold intolerance, heat intolerance, polydipsia or polyuria Hematologic/Lymphatic Hematologic/Lymphatic: Reports systems reviewed and no addt'l complaints, except as documented EXAM Physical Exam Const Vital Signs: 11/30/22 10:36 11/30/22 11:43 11/30/22 11:49 Temperature 96.5 F L 100.4 F H Temperature Source Temporal Oral Pulse Rate 114 H Respiratory Rate 18 Respiratory Pattern Normal Blood Pressure 128/58 H Blood Pressure Mean 81 Pulse Ox 95 Oxygen Delivery Method Nasal Cannula Oxygen Flow Rate (L/min) 2 11/30/22 12:04 11/30/22 12:04 Temperature 100.4 F H Temperature Source Oral Pulse Rate 99 99 Respiratory Rate 16 16 Respiratory Pattern Blood Pressure 124/61 H 124/61 H Blood Pressure Mean 82 82 Pulse Ox 96 96 Oxygen Delivery Method Nasal Cannula Nasal Cannula Oxygen Flow Rate (L/min) 2 Positive well nourished and well developed Constitutional Narrative: Patient does not look well. She does not appear toxic either. She is noted to be tachypneic and monitor reveals that she is in a sinus tachycardia with a rate of 119. Patient's lips and tongue are dry. She is having difficulty speaking because of her dry mucosa. General Appearance ED: well developed and NAD; Negative for cyanotic, diaphoretic or pallor HEENT Reports dry mucous membranes HEENT Narrative: Head is atraumatic and normocephalic. Ears are normal. Nares are patent. Uvula is midline. Posterior pharynx is normal. Mouth ED: Yes dry mucous membranes Mouth: dry mucous membranes Eyes PERRL and EOMs intact bilaterally General Eye ED: Negative for pale conjunctiva or scleral icterus Neck no lymphadenopathy, supple and no JVD Neck Narrative: There is no is your expiratory stridor. Chest Wall inspection of chest normal and palpation of chest normal Resp No normal respiratory effort and No clear to auscultation bilaterally Resp Narrative: Rales are noted bilaterally. Expiratory phase is prolonged with high pitched minimal wheezes noted. There is egophony right lower lobe and question egophony on the left. Effort and Inspection: Negative for retractions Auscultation: rales bilateral lower (Left greater than right with egophony on the right and question egophony on the left) and wheezes expiratory wheezes, scattered wheezes and throughout Cardio regular rhythm, S1 normal heart sound, S2 normal heart sound and no murmurs Rate: tachycardic GI normal to inspection, nondistended, normoactive bowel sounds, non-tender, non- distended and no masses; Negative for hepatosplenomegaly GI Narrative: There is no ventral hernia or inguinal hernia noted. Palpation: soft Back/Spine no CVA tenderness Extremity normal to inspection Extremity Narrative: There is no asymmetry, swelling, discoloration, leg vein distention, palpable cords or tenderness along the distribution of the deep venous system. General Extremety ED: Negative for edema or tenderness General Extremity: Negative for edema Neuro oriented x3, CN's II-XII intact bilaterally and no sensory deficits noted Neuro Narrative: Patient is awake but not alert. Sensorium / Orientation: Negative for alert Psych Mood & Affect: depressed Skin no rashes or lesions noted, no wounds and No skin turgor normal General Skin Exam: Negative for elasticity normal, jaundice or pallor MDM MDM MDM Narrative Medical decision making narrative: Patient presents with infectious symptoms. This is either an exacerbation of COPD with bronchitis versus pneumonia. Suspect the chest pain is due to her pulmonary process. ABG was obtained to assess CO2 and acid-base status. CBC to assess white count differential as well as rule out anemia. Basic metabolic panel to assess renal function, electrolytes and anion gap. Lactate because of concern for sepsis. Blood cultures were ordered. We will treat with DuoNeb and albuterol. Also will receive 125 mg Solu-Medrol. Since she had a negative COVID test on Tuesday this was not repeated. 1 L normal saline was ordered some clinically patient is dehydrated and she reports vomiting numerous times. Zofran was also ordered to treat her nausea and vomiting. History & Record Review Additional record(s) reviewed:: Prior inpatient record (Admission 2020 for hypoxia/COVID), Prior outpatient record, Prior ED visit and Prior labs Lab Data Attestation: I reviewed the patient's lab results. Lab results narrative: White count is 29.2 thousand with shift. There is no bandemia. This is markedly elevated compared to prior comprehensive metabolic panel reveals a sodium of 134. CO2 anion gap are normal. Creatinine is slight elevated 1.07 with a GFR 54. Glucose is elevated 146. Lactate is pending. In light of the elevated white count patient was treated levofloxacin. She was did not receive Rocephin since she reports chest tightness with cephalexin. Labs: Laboratory Results - last 24 hr 11/30/22 11/30/22 11/30/22 11:25 11:25 11:25 WBC 29.2 H RBC 4.09 L Hgb 12.2 Hct 37.0 MCV 90.5 MCH 29.8 MCHC 33.0 D RDW Std Deviation 43.8 RDW Coeff of Layl 13.2 Plt Count 252 MPV 9.9 Immature Gran % (Auto) 2.600 H Neut % (Auto) 88.0 H Lymph % (Auto) 2.1 L [place] % (Auto) 6.8 Eos % (Auto) 0.2 Baso % (Auto) 0.3 Absolute Neuts (auto) 25.7 H Absolute Lymphs (auto) 0.62 L Nucleated RBC % 0 Differential Comment SCANNED Diff Path Review May foll Sodium 134 L Potassium 3.8 Chloride 98 Carbon Dioxide 29.0 Anion Gap 7 BUN 15 Creatinine 1.07 H Estim Creat Clear Calc 44.66 Est GFR (MDRD) Af Amer 66 Est GFR (MDRD) Non-Af 54 L BUN/Creatinine Ratio 14.0 Glucose 146 H Lactic Acid 1.8 Calcium 9.0 Total Bilirubin 1.10 H AST 10 L ALT 19 Alkaline Phosphatase 103 Total Protein 7.4 Albumin 2.9 L Globulin 4.5 H Albumin/Globulin Ratio 0.6 L ABG Data Attestation: I personally reviewed and interpreted this ABG as follows: Interpretation: Venous blood gas reveals mild alkalosis. This is consistent with her tachypnea which was not documented by the nurse. Repeat temperature is 100.4. ABG results: ABG 11/30/22 12:12 Specimen Type ART Sample Site L Radial pH 7.48 H Bicarbonate Actual 27.5 H Total CO2 29 Base Excess 4 H O2 Saturation 93 L ABG pCO2 37.0 ABG pO2 62 L Venu Test Positive O2 Delivery Device Cannula Liter Flow 2.0 Radiography Chest X-Ray - ED: 1 View and Read by ED Physician (Left lower lobe infiltrate this was independent reviewed interpreted by me at 1215. Cardiac size is unremarkable. Perihilar regions unremarkable. Osseous trucks unremarkable.) Diagnostic Testing: Clinical Impression(s) from Imaging Studies Chest X-Ray 11/30/22 11:10 IMPRESSION: Left lower lobe pneumonia. Electronically Signed: Yair Mcclendon MD at 12:31 EDT , Rhythm Strip Rhythm Strip: Sinus Tach Rate: 110 Ectopy: None EKG Initial EKG: Attestation: I personally reviewed and interpreted this EKG as follows: Interpretation: Sinus Rhythm (Rate is 100. FL interval is 178 ms. Cures duration 82 ms. QT duration 230 ms. [place] is normal. EKG is normal.) Differential Diagnosis Chest pain/SOB: ACS ACS: Positive for EKG without ischemia and history not suggestive of ischemia pain, pneumothorax Reason(s) pneumothorax less likely: Positive for bilateral breath sounds and [employer]ORDIN[employer] withhout PTX, aortic dissection Reason(s) Aortic dissection less likely:: Positive for normal vascular exam, no history of HTN, normal neurological exam, no widened mediastinum on CXR, pain not sudden onset, no ripping/tearing pain, no pain to back and blood pressure appropriate in ED and CHF Reason(s) CHF less likely: Positive for no significant peripheral edema, no orthopnea and no evidence of fluid overload on CXR Management Discussion w/another healthcare provider: Hospitalist (Dr. Perez was made aware of history, physical and treatment. Full admit [facility]) Discharge Plan Triage Chief Complaint: Fever ED Provider: Zach Thomas Dx/Rx/DC Orders Clinical Impression: Community acquired pneumonia, Leukocytosis, COPD exacerbation, Acute bronchospasm, Dyspnea on exertion, Fever and chills, Sinus tachycardia Prescriptions: No Action albuterol sulfate [Ventolin HFA] 1 INHALER inhaler 2 puff inhalation Q4H PRN PRN (Reason: Shortness Of Breath) Label Comments: shortness of breath montelukast 10 MG tablet 10 mg PO QHS fluticasone propionate 50 mcg/actuation spray,suspension 2 spray INTRANASAL QHS Label Comments: Use 1 [place] in each nostril once daily. Trelegy Ellipta 100-62.5-25 mcg blister with device 1 inh INHALATION DAILY Label Comments: Inhale 1 Puff as instructed once daily. Primary Care Provider: Julio Draper Referrals: Julio Draper MD [Primary Care Provider] - Disposition Disposition: Acute Care Hospital [facility]
--- NOTE | 2022-11-30 11:10 | RAD_ITS ---
EXAM: XR CHEST, 1 VIEW CLINICAL INDICATION: Fever, chills, productive cough, egophony RLL TECHNIQUE: Frontal view of the chest. COMPARISON: XR Chest dated 11/28/2022 FINDINGS: LUNGS AND PLEURAL SPACES: New airspace opacification within the left lower lobe consistent with pneumonia. Minimal infiltrate or atelectasis at the right lung base. No pneumothorax. No effusion. HEART: Normal heart size. MEDIASTINUM: No mediastinal or hilar mass. BONES/JOINTS: No acute abnormality. RAD/Chest 1 View (Portable) IMPRESSION: Left lower lobe pneumonia. Electronically Signed: Yair Mcclendon MD at 12:31 EDT ,
[2022-11-30] MEDS: MethylPREDNISolone 125 MG/2 ML Vial IV (11:27)
[2022-11-30] MEDS: Ondansetron 4 MG/2 ML Vial IV (11:27)
[2022-11-30] MEDS: 0.9% Normal Saline 1,000 ML 1000 ML IV (11:27)
--- NOTE | 2022-11-30 11:37 | ED.RN ---
THIS NURSE DELAYED SEEING THIS PATIENT DUE TO ACUITY OF ANOTHER PATIENT IN TEAM.
[2022-11-30 11:50] LABS: Absolute Lymphocyte Count 0.62 X10^3/uL (0.83-4.51); Absolute Neutrophil Count 25.7 X10^3/uL (2.0-7.7); Basophil# 0.08 X10^3/uL; Basophil% 0.3 % (0-1); Eosinophil# 0.07 X10^3/uL; Eosinophils% 0.2 % (0-5); Hemoglobin 12.2 g/dL (12.0-15.0); Lymphocyte # 0.62 X10^3/ul (0.83-4.51); Lymphocyte % 2.1 % (19-41); Mean Corpuscular Hgb 29.8 pg (27.0-32.0); Mean Corpuscular Volume 90.5 fL (81-99); Mean Platelet Vol. 9.9 fl (6.2-12.0); Monocyte# 1.99 X10^3/uL; Monocyte% 6.8 % (0-10); NRBC Flagged by Analyzer 0 % (0-5); Neutrophil # 25.69 X10^3/uL (2.7-7.7); POSITIVE DIFFERENTIAL YES; Platelet Count 252 K/mm3 (150-450); RBC Distribution Width CV 13.2 % (11.6-14.6); RBC Distribution Width SD 43.8 fl (35.1-43.9); Red Blood Count 4.09 M/mm3 (4.2-5.4); White Blood Count 29.2 K/mm3 (4.4-11.0)
[2022-11-30 11:52] LABS: ALB/GLOB Ratio 0.6 RATIO (0.9-2.4); AST(SGOT) 10 U/L (15-37); Alanine Aminotransfer ALT/SGPT 19 U/L (13-56); Albumin, Serum 2.9 g/dL (3.2-5.0); Alkaline Phosphatase 103 U/L (45-117); Anion Gap 7 (5-15); BUN 15 mg/dL (7-18); Chloride 98 mmol/L (98-107); Creatinine, Serum 1.07 mg/dL (0.55-1.02); Differential Indicated SCAN CRITERIA MET; EST Glomerular Filtration Rate 54 mL/min (>60); Est Glom Filt Rate - Afr Amer 66 mL/min (>60); Estimated Creatinine Clearance 44.66 ml/min; Globulin 4.5 g/dL (2.2-4.2); Glucose 146 mg/dL (74-106); Potassium 3.8 mmol/L (3.5-5.1); Protein, Total 7.4 g/dL (6.4-8.2); Sodium Level 134 mmol/L (136-145)
[2022-11-30 12:01] LABS: Lactic Acid 1.8 mmol/L (0.4-1.9)
[2022-11-30] MEDS: Ipratropium/Albuterol Sulfate 3 ML AMPUL.NEB INHALATION ×3 (12:01→19:40)
[2022-11-30] MEDS: Albuterol 2.5 MG/3 ML VIAL.NEB. INHALATION ×3 (12:01)
[2022-11-30 12:13] LABS: Differential Comment SCANNED
[2022-11-30 12:15] LABS: Allen Test Positive; Base Excess 4 mmol/L (-2 to +2); Bicarbonate 27.5 mmol/L (22-26); Blood Gas Specimen Type ART; O2 Delivery Device Cannula; PO2 62 mmHG (75-100); SITE L Radial; SO2 93 % (95-99); Total Carbon Dioxide 29 mmol/L; pH 7.48 (7.35-7.45)
[2022-11-30] MEDS: levoFLOXacin IV 750 MG/150 ML BAG 100 MG IV (12:18)
--- NOTE | 2022-11-30 12:33 | PCM.HP.STD ---
HPI - General General Date of Admission: 11/30/22 Date of Service: 11/30/22 Chief Complaint: Fever/Cough HPI Narrative SNEHA CARDENAS, is a 67 F who presented to the emergency department at [facility] on 11/30/2022 with fever, cough, and shortness of breath. Patient states her symptoms started this past Tuesday. She started having a nonproductive cough and some left-sided pleuritic chest pain. She came emergency department on 11/28/2022 and her work-up at that time did not reveal any cardiac causes of chest pain and she was discharged home. She was told to watch for development of a fever. She states she did start having a fever later that day but was hoping it would go away and did not return the emergency department at that time and actually waited yesterday as well as she was hoping to get better. She has had persistent chest pain with coughing. Pain continues to be pleuritic. Cough is nonproductive. She is at increased shortness of breath but oxygen saturations have been okay on her baseline 2 L of nasal cannula. She developed a fever at home which at Tmax was 102 degrees. She also is complaining of some nausea and vomiting that started today and her oral intake has been poor. Since she continued to feel poorly she represented to the emergency department on 11/30/2022. Vital signs on presentation demonstrated temperature of 100.4, heart rate 114, blood pressure 128/58, respiratory rate 18 and oxygen saturations were 95% on 2 L nasal cannula. CBC demonstrated white count of 29.2 thousand with a significant left shift having an 88% neutrophilia. ABG showed a pH of 7.48 with an elevated serum bicarbonate 27.5/PCO2 of 37.0 and a PO2 of 62 on 2 L nasal cannula. Sat was 93%. Chemistry panel shows mild hyponatremia with a sodium of 134, her serum creatinine is 1.07 which is a little higher than her baseline. Serum glucose is 146. Lactic acid was normal 1.8. Liver functions are normal. Chest x-ray shows a left lower lobe infiltrate which is new compared to previous imaging done 2 days ago. Levaquin was started the emergency department request for admission was made. [facility] Medical History Anxiety Asthma Benign essential hypertension Benign essential tremor COPD (chronic obstructive pulmonary disease) Former tobacco use Migraines On home oxygen therapy Pneumonia due to COVID-19 virus Home Medications albuterol sulfate 90 mcg/actuation aerosol inhaler (Ventolin HFA) 2 puff inhalation Q4H PRN PRN Shortness Of Breath 08/28/15 [History Last Taken 11/30/22 10:00] montelukast 10 mg tablet 10 mg PO QHS ALLERGIES 02/25/18 [History Last Taken 11/29/22] fluticasone fur. 100 mcg-umeclid 62.5 mcg-vilant 25 mcg inhalat.powder (Trelegy Ellipta) 1 inh inhalation DAILY COPD 05/01/21 [History Last Taken 11/30/22] fluticasone propionate 50 mcg/actuation nasal spray,suspension 2 spray intranasal QHS ALLERGIES 05/01/21 [History Last Taken 11/28/22] Allergy/AdvReac Type Severity Reaction Status Date / Time cephalexin monohydrate Allergy Chest Verified 11/30/22 10:40 [From Keflex] tightness Family History no significant family his no significant family history Surgical History H/O bilateral salpingectomy History of herniorrhaphy Hx of cholecystectomy Hx of tonsillectomy Social History adopted: Yes household members: family housing: house Smoking Status: Former smoker alcohol intake: never substance use type: does not use ROS Constitutional Constitutional: Reports anorexia, chills, fatigue, fever(s), malaise and weakness Eyes Eyes: Denies blurry vision, change in eye color, change in vision, discharge from eye(s), double vision, erythema, eye pain, loss of vision or other ENT HEENT: Denies abnormal hearing, dysphagia, ear pain, epistaxis, headache(s), hearing loss, nasal congestion, nasal discharge, post nasal drip, sinus pressure, sore throat or other Cardiovascular Cardiovascular: Reports chest pain and other Details: Chest pain is pleuritic in nature ; Denies claudication, dyspnea on exertion, edema, lightheadedness, orthopnea, palpitations, paroxysmal nocturnal dyspnea, rapid heart rate or syncope Respiratory/Chest Respiratory/Chest: Reports cough and dyspnea Gastrointestinal Gastrointestinal: Reports nausea and vomiting; Denies abdominal pain, coffee ground emesis, constipation, diarrhea, dyspepsia, hematemesis, hematochezia, loose stools, melena or other Genitourinary Genitourinary: Denies burning urination, difficulty urinating, dysuria, hematuria, nocturia, urinary frequency, urinary hesitancy, urinary incontinence, urinary urgency or other Musculoskeletal Musculoskeletal: Denies arthralgias, back pain, joint pain, joint stiffness, joint swelling, myalgias, neck pain or other Neurologic Neurologic: Denies abnormal gait, abnormal speech, confusion, disequilibrium, dizziness, focal weakness, headache(s), numbness, paresthesias, seizure-like activity, seizures, syncope, tingling, tremor(s) or other Psychiatric Psychiatric: Denies anxiety, depression, homicidal ideation, suicidal ideation or other Endocrine Endocrinology: Denies change in body appearance, cold intolerance, excessive sweating, heat intolerance, polydipsia, polyuria or other Hematologic/Lymphatic Hematologic/Lymphatic: Denies anemia, easy bleeding, easy bruising, lymphadenopathy or other Allergic/Immunologic Allergic/Immunologic: Denies rhinitis, hives, eczemia, asthma or other Vital Signs Vital Signs Vital Signs: 11/30/22 10:36 11/30/22 11:43 11/30/22 11:49 Temperature 96.5 F L 100.4 F H Temperature Source Temporal Oral Pulse Rate 114 H Respiratory Rate 18 Respiratory Pattern Normal Blood Pressure 128/58 H Blood Pressure Mean 81 Pulse Ox 95 Oxygen Delivery Method Nasal Cannula Oxygen Flow Rate (L/min) 2 11/30/22 12:04 11/30/22 12:04 Temperature 100.4 F H Temperature Source Oral Pulse Rate 99 99 Respiratory Rate 16 16 Respiratory Pattern Blood Pressure 124/61 H 124/61 H Blood Pressure Mean 82 82 Pulse Ox 96 96 Oxygen Delivery Method Nasal Cannula Nasal Cannula Oxygen Flow Rate (L/min) 2 Weight Weight: 70.9 kg Body Mass Index (BMI) 26.8 Physical Exam Const alert, oriented x3 and average body habitus; Negative for healthy appearing Constitutional Narrative: Upper middle-aged white female, sitting up in bed, appears older than stated age, appears comfortable but ill, nontoxic-appearing, appears stable on 2 L of supplemental oxygen at this time, no acute distress General Appearance: cooperative HEENT normocephalic, head/scalp atraumatic and hearing grossly normal bilaterally; Negative for moist oral mucous membranes HEENT Narrative: Dentition is poor, Mallampati is 2-3, no thrush, mucous membranes are dry Eyes PERRL, EOMs intact bilaterally and conjunctivae normal Eyes Narrative: No scleral icterus Neck no lymphadenopathy, supple, no JVD and no carotid bruits Neck Narrative: Trachea midline, no thyroid enlargement Resp normal respiratory effort, no retractions, no use of accessory muscles and No clear to auscultation bilaterally Resp Narrative: Diminished left midlung field and left upper lobe -Few inspiratory crackles Auscultation: crackles; Negative for rhonchi or wheezes Cardio regular rate, regular rhythm, S1 normal heart sound, S2 normal heart sound, no murmurs, no rub, no gallops and no clicks GI normal to inspection, nondistended, normoactive bowel sounds, soft to palpation and non-tender Extremity no clubbing, cyanosis or edema Extremity Narrative: 2+ pedal pulses Skin no rashes or lesions noted, no wounds, skin turgor normal, no jaundice, no petechiae and no mottling Neuro oriented x3, CN's II-XII intact bilaterally, moves all extremities and no focal motor deficits Neuro Narrative: Significant generalized weakness noted-likely related to a acute illness and not feeling well Speech: speech normal Motor Exam: Negative for strength 5/5 throughout Psych Psych Narrative: Affect is flat, eye contact is good, patient is pleasant and appropriate Results Lab / Micro Data Attestation: I reviewed the patient's lab results. Result Diagrams: 11/30/22 11:25 11/30/22 11:25 Labs: Laboratory Results - last 24 hr 11/30/22 11:25: WBC 29.2 H, RBC 4.09 L, Hgb 12.2, Hct 37.0, MCV 90.5, MCH 29.8, MCHC 33.0 D, RDW Std Deviation 43.8, RDW Coeff of Laly 13.2, Plt Count 252, MPV 9.9, Immature Gran % (Auto) 2.600 H, Neut % (Auto) 88.0 H, Lymph % (Auto) 2.1 L, Morrison % (Auto) 6.8, Eos % (Auto) 0.2, Baso % (Auto) 0.3, Absolute Neuts (auto) 25.7 H, Absolute Lymphs (auto) 0.62 L, Nucleated RBC % 0, Differential Comment SCANNED, Diff Path Review November11/30/22 11:25: Sodium 134 L, Potassium 3.8, Chloride 98, Carbon Dioxide 29.0, Anion Gap 7, BUN 15, Creatinine 1.07 H, Estim Creat Clear Calc 44.66, Est GFR (MDRD) Af Amer 66, Est GFR (MDRD) Non-Af 54 L, BUN/Creatinine Ratio 14.0, Glucose 146 H, Calcium 9.0, Total Bilirubin 1.10 H, AST 10 L, ALT 19, Alkaline Phosphatase 103, Total Protein 7.4, Albumin 2.9 L, Globulin 4.5 H, Albumin/Globulin Ratio 0.6 L 11/30/22 11:25: Lactic Acid 1.8 ABG Data ABG results: ABG 11/30/22 12:12 Specimen Type ART Sample Site L Radial pH 7.48 H Bicarbonate Actual 27.5 H Total CO2 29 Base Excess 4 H O2 Saturation 93 L ABG pCO2 37.0 ABG pO2 62 L Venu Test Positive O2 Delivery Device Cannula Liter Flow 2.0 Rhythm Strip Rhythm Strip: Sinus Tach Rate: 110 Ectopy: None Radiology Impression Chest X-Ray 11/30/22 11:10 IMPRESSION: Left lower lobe pneumonia. Electronically Signed: Yair Mcclendon MD at 12:31 EDT , Assessment & Plan Assessment/Plan (1) Community acquired pneumonia: (2) Leukocytosis: (3) Elevated serum creatinine: (4) Hyperglycemia: (5) Fever and chills: PLAN: Plan Community acquired pneumonia -Continue with Levaquin -Sputum culture -Check strep pneumo and Legionella antigens -Aggressive pulmonary toilet -I-S -Pep therapy -Supplemental oxygen as needed--> patient is currently on her baseline of 2 L Nausea and vomiting -P.o. intake has been poor last 24 hours Patient looks dry -1 bolus of IV fluids in the emergency department next-we will continue IV fluids at 75 cc/h until oral intake is better Leukocytosis -Markedly elevated -Left shift present -Blood cultures are pending -Sputum culture pending Hyperglycemia -Mild -Likely stress response -We will monitor need for further work-up Chronic hypoxic respiratory failure/COPD -Patient is on 2 L supplemental nasal cannula -Has been oxygen dependent since she had COVID in April 2021 -Also has a history of COPD -Follows with Dr. Evangelista at [facility] pulmonary medicine in [place] -Continue home inhalers Seasonal allergies -Continue Singulair -Continue nasal fluticasone History of tobacco abuse -Remote -Encourage continued cessation DVT prophylaxis -Lovenox subcu daily CODE STATUS -Full care code as verified on admission Charges/Coding Visit Charges Inpatient E&M: 60164 Init Hosp L3
[2022-11-30] MEDS: Lactated Ringers 1,000 ML 75 ML IV (14:48)
[2022-11-30 16:17] LABS: M R Staph aureus DNA By PCR Negative (Negative); Probe Check PASS; Specimen Processing Control PASS
[2022-11-30] MEDS: Acetaminophen 325 MG Tablet 650 MG PO (16:51)
[2022-11-30] MEDS: Budesonide Respules 0.5 MG/2 ML AMPUL.NEB. INHALATION (19:40)
[2022-11-30] MEDS: guaiFENesin 1,200 MG Tablet 1200 MG PO (21:20)
[2022-11-30] MEDS: Montelukast 10 MG Tablet PO (21:20)
[2022-11-30] MEDS: Fluticasone 0.05% 1 SPRAY NASAL.SRY 2 SPRAY NASAL (21:21)
[2022-12-01] VITALS (8 sets, daily range): BP systolic 118–128; BP diastolic 54–63; PULSE 81–96; RESP 16–22; TEMP 36.6–36.9; O2SAT 95–100
[2022-12-01] MEDS: Lactated Ringers 1,000 ML 75 ML IV (03:11)
[2022-12-01 06:19] LABS: Absolute Lymphocyte Count 0.69 X10^3/uL (0.83-4.51); Absolute Neutrophil Count 20.7 X10^3/uL (2.0-7.7); Basophil# 0.03 X10^3/uL; Basophil% 0.1 % (0-1); Hematocrit 33.4 % (37-47); Hemoglobin 10.9 g/dL (12.0-15.0); Lymphocyte # 0.69 X10^3/ul (0.83-4.51); Lymphocyte % 3.1 % (19-41); Mean Corp Hgb Conc 32.6 g/dL (32-36); Mean Corpuscular Hgb 29.9 pg (27.0-32.0); Mean Corpuscular Volume 91.8 fL (81-99); Monocyte# 0.66 X10^3/uL; Monocyte% 2.9 % (0-10); NRBC Flagged by Analyzer 0 % (0-5); Neutrophil # 20.68 X10^3/uL (2.7-7.7); Neutrophil % 92.5 % (47-70); POSITIVE DIFFERENTIAL YES; Platelet Count 244 K/mm3 (150-450); RBC Distribution Width CV 13.1 % (11.6-14.6); Red Blood Count 3.64 M/mm3 (4.2-5.4); White Blood Count 22.4 K/mm3 (4.4-11.0)
[2022-12-01 06:22] LABS: Differential Indicated SCAN CRITERIA MET
[2022-12-01 06:52] LABS: ALB/GLOB Ratio 0.6 RATIO (0.9-2.4); AST(SGOT) 7 U/L (15-37); Alanine Aminotransfer ALT/SGPT 14 U/L (13-56); Albumin, Serum 2.5 g/dL (3.2-5.0); Alkaline Phosphatase 86 U/L (45-117); Anion Gap 6 (5-15); BUN 16 mg/dL (7-18); BUN/Creat Ratio 18.8 RATIO (10-20); Calcium,Total 9.3 mg/dL (8.5-10.1); Chloride 106 mmol/L (98-107); Creatinine, Serum 0.85 mg/dL (0.55-1.02); EST Glomerular Filtration Rate 71 mL/min (>60); Est Glom Filt Rate - Afr Amer 86 mL/min (>60); Estimated Creatinine Clearance 56.22 ml/min; Globulin 4.1 g/dL (2.2-4.2); Glucose 148 mg/dL (74-106); Magnesium 2.5 mg/dL (1.6-2.6); Phosphorus 2.6 mg/dL (2.5-4.9); Potassium 3.7 mmol/L (3.5-5.1); Protein, Total 6.6 g/dL (6.4-8.2); Sodium Level 141 mmol/L (136-145)
[2022-12-01] MEDS: Budesonide Respules 0.5 MG/2 ML AMPUL.NEB. INHALATION ×2 (07:20→19:45)
[2022-12-01] MEDS: Ipratropium/Albuterol Sulfate 3 ML AMPUL.NEB INHALATION ×4 (07:21→23:10)
--- NOTE | 2022-12-01 07:44 | PCM.PN.HOSP ---
Reason for Visit Reason for Visit: Diagnoses Elevated white blood cell count, unspecified (11/30/22) Pneumonia, unspecified organism (11/30/22) Fever, unspecified (11/30/22) Hyperglycemia, unspecified (11/30/22) Other specified abnormal findings of blood chemistry (11/30/22) Subjective Subjective Follow-up for pneumonia with shortness of breath. Objective Data Objective Data Vital Signs: Vital Signs Temp Pulse Resp BP Pulse Ox O2 Del Method O2 Flow Rate 97.8 F 89 20 H 120/62 96 Nasal Cannula 2 12/01/22 03:06 12/01/22 07:21 12/01/22 07:21 12/01/22 03:06 12/01/22 07:21 12/01/22 07:21 12/01/22 07:21 Oxygen Flow Rate (L/min) 2 Oxygen Delivery Method Nasal Cannula Weight: 156 lb 8.451 oz Body Mass Index (BMI) 26.9 Intake & Output: Intake and Output for Last 24 Hours 11/29/22 11/30/22 12/01/22 23:59 23:59 23:59 Intake Total 1150 / 1150 928.75 / 928.75 Output Total 400 / 400 Balance 750 / 750 928.75 / 928.75 Lab / Micro Data Result Diagrams: 12/01/22 06:03 12/01/22 06:03 Labs: Laboratory Results - last 24 hr 11/30/22 11:25: WBC 29.2 H, RBC 4.09 L, Hgb 12.2, Hct 37.0, MCV 90.5, MCH 29.8, MCHC 33.0 D, RDW Std Deviation 43.8, RDW Coeff of Laly 13.2, Plt Count 252, MPV 9.9, Immature Gran % (Auto) 2.600 H, Neut % (Auto) 88.0 H, Lymph % (Auto) 2.1 L, Kleberg % (Auto) 6.8, Eos % (Auto) 0.2, Baso % (Auto) 0.3, Absolute Neuts (auto) 25.7 H, Absolute Lymphs (auto) 0.62 L, Nucleated RBC % 0, Differential Comment SCANNED, Diff Path Review November11/30/22 11:25: Sodium 134 L, Potassium 3.8, Chloride 98, Carbon Dioxide 29.0, Anion Gap 7, BUN 15, Creatinine 1.07 H, Estim Creat Clear Calc 44.66, Est GFR (MDRD) Af Amer 66, Est GFR (MDRD) Non-Af 54 L, BUN/Creatinine Ratio 14.0, Glucose 146 H, Calcium 9.0, Total Bilirubin 1.10 H, AST 10 L, ALT 19, Alkaline Phosphatase 103, Total Protein 7.4, Albumin 2.9 L, Globulin 4.5 H, Albumin/Globulin Ratio 0.6 L 11/30/22 11:25: Lactic Acid 1.8 11/30/22 14:50: MRSA (PCR) Negative 12/01/22 06:03: WBC 22.4 H, RBC 3.64 L, Hgb 10.9 L, Hct 33.4 L, MCV 91.8, MCH 29.9, MCHC 32.6, RDW Std Deviation 44.0 H, RDW Coeff of Laly 13.1, Plt Count 244, MPV 10.0, Immature Gran % (Auto) 1.400 H, Neut % (Auto) 92.5 H, Lymph % (Auto) 3.1 L, Kleberg % (Auto) 2.9, Eos % (Auto) 0.0, Baso % (Auto) 0.1, Absolute Neuts (auto) 20.7 H, Absolute Lymphs (auto) 0.69 L, Nucleated RBC % 0 12/01/22 06:03: Sodium 141, Potassium 3.7, Chloride 106, Carbon Dioxide 29.0, Anion Gap 6, BUN 16, Creatinine 0.85, Estim Creat Clear Calc 56.22, Est GFR (MDRD) Af Amer 86, Est GFR (MDRD) Non-Af 71, BUN/Creatinine Ratio 18.8, Glucose 148 H, Calcium 9.3, Phosphorus 2.6, Magnesium 2.5, Total Bilirubin 0.40, AST 7 L, ALT 14, Alkaline Phosphatase 86, Total Protein 6.6, Albumin 2.5 L, Globulin 4.1, Albumin/Globulin Ratio 0.6 L Micro: Microbiology 11/30/22 15:15 Mucosa - Nasopharyngeal Respiratory Panel (PCR) - Final 11/30/22 14:00 Urine, Clean Catch Legionella Antigen - Final 11/30/22 14:00 Urine, Clean Catch Streptococcus pneumoniae Antigen (M - Final ABG Data ABG results: ABG 11/30/22 12:12 Specimen Type ART Sample Site L Radial pH 7.48 H Bicarbonate Actual 27.5 H Total CO2 29 Base Excess 4 H O2 Saturation 93 L ABG pCO2 37.0 ABG pO2 62 L Venu Test Positive O2 Delivery Device Cannula Liter Flow 2.0 Radiography Diagnostic Testing: Radiology Impression Chest X-Ray 11/30/22 11:10 IMPRESSION: Left lower lobe pneumonia. Electronically Signed: Yair Mcclendon MD at 12:31 EDT , Rhythm Strip Rhythm Strip: Sinus Tach Rate: 110 Ectopy: None Physical Exam Narrative Seen and examined. Patient very short of breath, tachypneic. She also has nonessential tremor but denies history of Parkinson or essential tremor. History of COPD, started smoking in teenage quit about 9 years ago Physical exam General: Alert, Oriented x3, Cooperative HEENT: Atraumatic, PERRLA, EOMI, Normocephalic Oral: Oral mucosa moist. No Gingival or Mucosal Lesions/ Ulcerations Neck: Supple, No JVD, Negative Carotid Bruits Lungs: Air entry severely diminished in both lungs. Fine expiratory rhonchi. Tachypneic. Cardiovascular: Regular rate, Regular Rhythm, Normal S1, Normal S2, No murmurs Abdomen: Bowel Sounds Present, Soft, Non Tender, Non-Distended : No renal angle tenderness. No suprapubic tenderness. Extremities: Action/kinetic tremors in both hands. No edema, Capillary Refill Less than 3 Seconds Skin: No rashes, No breakdown Musculoskeletal: No Tenderness to Palpation of Joints or Extremities Neurological: Cranial nerves II-XII grossly intact, DTR 2+/4 and Symmetrical, Neuro grossly intact Psych/Mental Status: Normal Affect, Appropriate. Assessment & Plan Assessment/Plan (1) Community acquired pneumonia: (2) Leukocytosis: (3) Elevated serum creatinine: (4) Hyperglycemia: (5) Fever and chills: PLAN: Plan 1. Left lower lobe community acquired pneumonia with chronic hypoxic respiratory failure: Patient is admitted on MedSur floor. Patient on 2 L of home oxygen /. Does not use BiPAP or CPAP. -Continue with Levaquin. Urinary antigens and respiratory panel negative. Rapid SARS-CoV-2 antigen negative. Bronchodilator, chest physiotherapy and incentive spirometry. Patient has leukocytosis mainly neutrophil count, improving. Nausea and vomiting: Patient is well rehydrated. Discontinue Ringer lactate Hyperglycemia -Mild -Likely stress response -We will monitor need for further work-up Chronic hypoxic respiratory failure/COPD -Patient is on 2 L supplemental nasal cannula -Has been oxygen dependent since she had COVID in April 2021 -Also has a history of COPD -Follows with Dr. Evangelista at [facility] pulmonary medicine in [place] -Continue home inhalers Seasonal allergies -Continue Singulair -Continue nasal fluticasone History of tobacco abuse -Remote -Encourage continued cessation DVT prophylaxis -Lovenox subcu daily CODE STATUS -Full care code as verified on admission Charges/Coding Visit Charges Inpatient E&M: 04761 Subs Hosp L2
[2022-12-01] MEDS: Enoxaparin 40 MG/0.4 ML Syringe SC (09:39)
[2022-12-01] MEDS: guaiFENesin 1,200 MG Tablet 1200 MG PO ×2 (09:40→21:39)
[2022-12-01] MEDS: levoFLOXacin IV 750 MG/150 ML BAG 100 MG IV (09:40)
--- NOTE | 2022-12-01 12:55 | CASEMGMT ---
RN?CM?[employer]?CM?to room to meet with patient for initial transition planning/care coordination?assessment.?RN?CM?introduced self and role at [facility].? Pt voices understanding and consents to?assessment?at this time.? Pt sitting up in chair in room in no distress at this time.? Pt is A/O at this time and answers all questions appropriately.?? Care providers, pharmacy, and demographics verified/updated at this time. PCP: Dr Draper Specialists:Dr Jasmine Evangelista-pulmonology Preferred Pharmacy: [facility] Retail Insurance: [place], [facility] A Prescription Benefit:?yes Living Will/HPOA:?Pt does not currently have LW/HCPOA and would like to complete. NAE, Moni, made aware. LNOK: , Cash. Dtr, Evelin Living Arrangements: Lives w/, dtr, son-in-law, and GS in one-story home w/4 steps to enter. Indep w/ADL's when @ her baseline, but over the past week she has been so weak, her has been assisting her w/using the restroom and around the house. She reports very good support system. Transportation:?Pt states drives some, but her dtr does most of the driving. DME: ?States has the following DME:?O2 through [employer] @ 2 lm. Pt states someone can bring a portable O2 tank in for her to go home on @ D/C. Pt also has a nebulizer and pulse ox. Pt uses no DME to ambulate. ?Pt states no need for further DME at this time.? HHC/SNF:No hx of SNF. Has had HHC in the past and has done OP therapy @ [facility] in the past after shoulder surgery. Pt denies need for HHC or OP therapy @ discharge. Pt wishes to return home and states has no concerns with going home at time of discharge.? CM?to follow for any discharge planning/needs.? Pt voices no concerns/needs at this time.? Advised pt to ask for?CM?if any questions/concerns/needs arise.? Voices understanding. PLAN:??Home w/family support and discharge plans in place. Follow for any increase in oxygen requirements. Margarito PINON?RN?CM
[2022-12-01] MEDS: 0.9% Saline Lock 10 ML Syringe IV (21:37)
[2022-12-01] MEDS: Fluticasone 0.05% 1 SPRAY NASAL.SRY 2 SPRAY NASAL (21:38)
[2022-12-01] MEDS: Montelukast 10 MG Tablet PO (21:39)
[2022-12-02] VITALS (7 sets, daily range): BP systolic 112–139; BP diastolic 57–67; PULSE 81–101; RESP 16–20; TEMP 36.6–37.1; O2SAT 93–98
[2022-12-02 05:42] LABS: Absolute Lymphocyte Count 2.08 X10^3/uL (0.83-4.51); Absolute Neutrophil Count 13.8 X10^3/uL (2.0-7.7); Basophil# 0.04 X10^3/uL; Basophil% 0.2 % (0-1); Eosinophil# 0.08 X10^3/uL; Eosinophils% 0.5 % (0-5); Hematocrit 31.5 % (37-47); Hemoglobin 9.9 g/dL (12.0-15.0); Lymphocyte # 2.08 X10^3/ul (0.83-4.51); Lymphocyte % 12.2 % (19-41); Mean Corp Hgb Conc 31.4 g/dL (32-36); Mean Corpuscular Volume 92.4 fL (81-99); Mean Platelet Vol. 9.9 fl (6.2-12.0); Monocyte# 0.91 X10^3/uL; Monocyte% 5.3 % (0-10); NRBC Flagged by Analyzer 0 % (0-5); Neutrophil # 13.79 X10^3/uL (2.7-7.7); Neutrophil % 81.1 % (47-70); Platelet Count 251 K/mm3 (150-450); RBC Distribution Width CV 13.2 % (11.6-14.6); RBC Distribution Width SD 44.5 fl (35.1-43.9); Red Blood Count 3.41 M/mm3 (4.2-5.4)
[2022-12-02 06:05] LABS: Anion Gap 5 (5-15); BUN 23 mg/dL (7-18); BUN/Creat Ratio 29.5 RATIO (10-20); Calcium,Total 8.5 mg/dL (8.5-10.1); Chloride 107 mmol/L (98-107); Creatinine, Serum 0.78 mg/dL (0.55-1.02); EST Glomerular Filtration Rate 79 mL/min (>60); Est Glom Filt Rate - Afr Amer 95 mL/min (>60); Estimated Creatinine Clearance 47.79 ml/min; Glucose 88 mg/dL (74-106); Potassium 3.6 mmol/L (3.5-5.1); Sodium Level 141 mmol/L (136-145)
[2022-12-02] MEDS: Ipratropium/Albuterol Sulfate 3 ML AMPUL.NEB INHALATION ×2 (07:25→19:13)
[2022-12-02] MEDS: Budesonide Respules 0.5 MG/2 ML AMPUL.NEB. INHALATION ×2 (07:25→19:13)
[2022-12-02 09:26] LABS: Pathologist Review Reviewed
[2022-12-02] MEDS: 0.9% Saline Lock 10 ML Syringe IV ×2 (09:54→15:49)
[2022-12-02] MEDS: levoFLOXacin IV 750 MG/150 ML BAG 100 MG IV (09:54)
[2022-12-02] MEDS: guaiFENesin 1,200 MG Tablet 1200 MG PO ×2 (09:55→21:01)
[2022-12-02] MEDS: Enoxaparin 40 MG/0.4 ML Syringe SC (09:55)
--- NOTE | 2022-12-02 13:47 | PN.HOSP_ITS ---
Reason for Visit Reason for Visit: Diagnoses Elevated white blood cell count, unspecified (11/30/22) Pneumonia, unspecified organism (11/30/22) Fever, unspecified (11/30/22) Hyperglycemia, unspecified (11/30/22) Other specified abnormal findings of blood chemistry (11/30/22) Subjective Subjective Follow-up for pneumonia Objective Data Objective Data Vital Signs: Vital Signs Temp Pulse Resp BP Pulse Ox O2 Del Method O2 Flow Rate 98.3 F 91 18 134/67 H 95 Nasal Cannula 2 12/02/22 09:43 12/02/22 09:43 12/02/22 09:43 12/02/22 09:43 12/02/22 09:43 12/02/22 09:43 12/02/22 09:43 Oxygen Flow Rate (L/min) 2 Oxygen Delivery Method Nasal Cannula Weight: 156 lb 8.451 oz Body Mass Index (BMI) 26.9 Intake & Output: Intake and Output for Last 24 Hours 11/30/22 12/01/22 12/02/22 23:59 23:59 23:59 Intake Total 1150 / 1150 2035.00 / 2035.00 450 / 450 Output Total 400 / 400 Balance 750 / 750 2035.00 / 2035.00 450 / 450 Lab / Micro Data Result Diagrams: 12/02/22 05:17 12/02/22 05:17 Labs: Laboratory Results - last 24 hr 11/30/22 11:25: Diff Path Review Reviewed 12/02/22 05:17: WBC 17.0 H, RBC 3.41 L, Hgb 9.9 L, Hct 31.5 L, MCV 92.4, MCH 29.0, MCHC 31.4 L, RDW Std Deviation 44.5 H, RDW Coeff of Laly 13.2, Plt Count 251, MPV 9.9, Immature Gran % (Auto) 0.700, Neut % (Auto) 81.1 H, Lymph % (Auto) 12.2 L, Williamson % (Auto) 5.3, Eos % (Auto) 0.5, Baso % (Auto) 0.2, Absolute Neuts (auto) 13.8 H, Absolute Lymphs (auto) 2.08, Nucleated RBC % 0 12/02/22 05:17: Sodium 141, Potassium 3.6, Chloride 107, Carbon Dioxide 29.0, Anion Gap 5, BUN 23 H, Creatinine 0.78, Estim Creat Clear Calc 47.79, Est GFR (MDRD) Af Amer 95, Est GFR (MDRD) Non-Af 79, BUN/Creatinine Ratio 29.5 H, Glucose 88, Calcium 8.5 Micro: Microbiology 11/30/22 11:55 Blood Culture (Wb) - Anticubital Left Blood Culture - Preliminary No growth in 48 hours. 11/30/22 11:25 Blood Culture (Wb) - Anticubital Left Blood Culture - Preliminary No growth in 48 hours. 12/01/22 10:05 Nasal Secretion SARS-CoV-2 Antigen (Rapid) - Final 11/30/22 15:15 Mucosa - Nasopharyngeal Respiratory Panel (PCR) - Final 11/30/22 14:00 Urine, Clean Catch Legionella Antigen - Final 11/30/22 14:00 Urine, Clean Catch Streptococcus pneumoniae Antigen (M - Final Rhythm Strip Rhythm Strip: Sinus Tach Rate: 110 Ectopy: None Physical Exam Narrative Seen and examined. Shortness of breath at rest is better but he still gets easily tachypneic and dyspneic on walking to bathroom. History of COPD, started smoking in teenage quit about 9 years ago Physical exam General: Alert, Oriented x3, Cooperative HEENT: Atraumatic, PERRLA, EOMI, Normocephalic Oral: Oral mucosa moist. No Gingival or Mucosal Lesions/ Ulcerations Neck: Supple, No JVD, Negative Carotid Bruits Lungs: Air entry severely diminished in both lungs. Fine expiratory rhonchi. Tachypneic. On 2 L of oxygen Cardiovascular: Regular rate, Regular Rhythm, Normal S1, Normal S2, No murmurs Abdomen: Bowel Sounds Present, Soft, Non Tender, Non-Distended : No renal angle tenderness. No suprapubic tenderness. Extremities: Action/kinetic tremors in both hands. No edema, Capillary Refill Less than 3 Seconds Skin: No rashes, No breakdown Musculoskeletal: No Tenderness to Palpation of Joints or Extremities Neurological: Cranial nerves II-XII grossly intact, DTR 2+/4 and Symmetrical, Neuro grossly intact Psych/Mental Status: Flat affect. Assessment & Plan Assessment/Plan (1) Community acquired pneumonia: (2) Leukocytosis: (3) Elevated serum creatinine: (4) Hyperglycemia: (5) Fever and chills: PLAN: Plan 1. COPD exacerbation due to left lower lobe community acquired pneumonia with chronic hypoxic respiratory failure: Patient is admitted on MedSur floor. Patient on 2 L of home oxygen 24/01. Does not use BiPAP or CPAP. -Continue with Levaquin. Urinary antigens and respiratory panel negative. Rapid SARS-CoV-2 antigen negative. Bronchodilator, chest physiotherapy and incentive spirometry. Patient has leukocytosis mainly neutrophil count, improving. 12/02: Patient started on Solu-Medrol as she still has dyspnea on mild exertion, even going to bathroom. Overall dyspnea at rest and tachypnea are improving. Blood cultures x2 negative for more than 48 hours. Leukocytosis improving. Nausea and vomiting: Patient is well rehydrated. Discontinue Ringer lactate Hyperglycemia -Mild -Likely stress response -We will monitor need for further work-up Chronic hypoxic respiratory failure -Patient is on 2 L supplemental nasal cannula -Has been oxygen dependent since she had COVID in April 2021 -Follows with Dr. Evangelista at [facility] pulmonary medicine in [place] -Continue home inhalers Seasonal allergies -Continue Singulair -Continue nasal fluticasone History of tobacco abuse -Remote -Encourage continued cessation She also has nonessential tremor but denies history of Parkinson or essential tremor. DVT prophylaxis -Lovenox subcu daily CODE STATUS -Full care code as verified on admission Charges/Coding Visit Charges Inpatient E&M: 23024 Subs Hosp L2
--- NOTE | 2022-12-02 16:36 | CASEMGMT ---
Social Work SW met with pt and assisted with completing HCPOA naming her Cash Perdomo. Pt choosing not to complete Living will. Copy placed on chart and original given to pt. COURTNEY Gibbons
[2022-12-02] MEDS: Fluticasone 0.05% 1 SPRAY NASAL.SRY 2 SPRAY NASAL (21:00)
[2022-12-02] MEDS: Montelukast 10 MG Tablet PO (21:01)
[2022-12-03 03:46] VITALS: BP 137/71; PULSE 85; RESP 18; TEMP 36.6; O2SAT 97
[2022-12-03 06:05] LABS: Absolute Lymphocyte Count 0.95 X10^3/uL (0.83-4.51); Absolute Neutrophil Count 6.2 X10^3/uL (2.0-7.7); Basophil# 0.01 X10^3/uL; Basophil% 0.1 % (0-1); Hematocrit 33.4 % (37-47); Hemoglobin 10.8 g/dL (12.0-15.0); Lymphocyte # 0.95 X10^3/ul (0.83-4.51); Lymphocyte % 12.7 % (19-41); Mean Corp Hgb Conc 32.3 g/dL (32-36); Mean Corpuscular Hgb 29.1 pg (27.0-32.0); Mean Platelet Vol. 9.9 fl (6.2-12.0); Monocyte# 0.23 X10^3/uL; Monocyte% 3.1 % (0-10); NRBC Flagged by Analyzer 0 % (0-5); Neutrophil # 6.22 X10^3/uL (2.7-7.7); Neutrophil % 83.3 % (47-70); Platelet Count 273 K/mm3 (150-450); RBC Distribution Width CV 12.9 % (11.6-14.6); RBC Distribution Width SD 42.5 fl (35.1-43.9); Red Blood Count 3.71 M/mm3 (4.2-5.4); White Blood Count 7.5 K/mm3 (4.4-11.0)
[2022-12-03 06:40] LABS: Anion Gap 5 (5-15); BUN 19 mg/dL (7-18); BUN/Creat Ratio 26.3 RATIO (10-20); Calcium,Total 8.6 mg/dL (8.5-10.1); Chloride 103 mmol/L (98-107); Creatinine, Serum 0.72 mg/dL (0.55-1.02); EST Glomerular Filtration Rate 86 mL/min (>60); Est Glom Filt Rate - Afr Amer 104 mL/min (>60); Estimated Creatinine Clearance 47.79 ml/min; Glucose 137 mg/dL (74-106); Potassium 4.2 mmol/L (3.5-5.1); Sodium Level 139 mmol/L (136-145)
[2022-12-03] MEDS: Budesonide Respules 0.5 MG/2 ML AMPUL.NEB. INHALATION (07:04)
[2022-12-03] MEDS: Ipratropium/Albuterol Sulfate 3 ML AMPUL.NEB INHALATION (07:04)
[2022-12-03 07:47] VITALS: O2SAT 91; O2SAT 92; O2SAT 97
[2022-12-03 08:00] VITALS: O2SAT 97
--- NOTE | 2022-12-03 08:15 | NURSING ---
Walking spo2 done, informed Dr. Izaguirre of the results. Pt sitting in chair, no distress.
[2022-12-03 08:16] VITALS: BP 139/63; PULSE 108; RESP 20; TEMP 36.6; O2SAT 97
--- NOTE | 2022-12-03 09:04 | DCINST_ITS ---
Discharge Instructions Diet Discharge Diet: No restrictions Activity Discharge Activity: Return to Normal Activity Dressing / Incision Call your doctor if you observe: Fever of 101 or Higher, Shortness of breath, Dizziness, Fainting spells, Swelling in the ankles, Chest pain and Increased palpitations (irregular heartbeat) Follow Up Care Test Results: Test results from this visit will be discussed in further detail at your follow- up appointment, if applicable. Discharge Plan Admission Admit Date/Time: 11/30/22 12:37 Attending Provider: Mihai Izaguirre Primary Care Provider: Julio Draper Consulting Providers: January Perez ; Yemi Celaya Discharge Orders/Prescriptions Prescriptions: New levofloxacin 750 mg tablet 750 mg PO DAILY Qty: 7 0RF prednisone 20 mg tablet 40 mg PO DAILY 7 Days Qty: 14 0RF Continued albuterol sulfate [Ventolin HFA] 1 INHALER inhaler 2 puff inhalation Q4H PRN PRN (Reason: Shortness Of Breath) Label Comments: shortness of breath montelukast 10 MG tablet 10 mg PO QHS fluticasone propionate 50 mcg/actuation spray,suspension 2 spray INTRANASAL QHS Label Comments: Use 1 [place] in each nostril once daily. Trelegy Ellipta 100-62.5-25 mcg blister with device 1 inh INHALATION DAILY Label Comments: Inhale 1 Puff as instructed once daily. Referrals / Follow Up: Julio Draper MD [Primary Care Provider] - Within 1 Week Disposition Disposition (needs filled in before D/C Order can be placed): Home, Self Care
--- NOTE | 2022-12-03 10:44 | PHA.DC.MC ---
Pharmacy Service has performed discharge medication reconciliation and counseling for this patient. The patient was counseled on the following discharge medications and changes in medications for homegoing were reviewed. 1. LEVOFLOXACIN 2. PREDNISONE The Reason for Use, instructions for use, and potential side effects were reviewed for all new medications. The patient's questions regarding all of their medications were answered. The patient was able to verbally demonstrate an understanding of their discharge medications. Home Medications albuterol sulfate 90 mcg/actuation aerosol inhaler (Ventolin HFA) 2 puff inhalation Q4H PRN PRN Shortness Of Breath 08/28/15 montelukast 10 mg tablet 10 mg PO QHS ALLERGIES 02/25/18 fluticasone fur. 100 mcg-umeclid 62.5 mcg-vilant 25 mcg inhalat.powder (Trelegy Ellipta) 1 inh inhalation DAILY COPD 05/01/21 fluticasone propionate 50 mcg/actuation nasal spray,suspension 2 spray intranasal QHS ALLERGIES 05/01/21 levofloxacin 750 mg tablet 750 mg PO DAILY #7 tabs 12/03/22 prednisone 20 mg tablet 40 mg PO DAILY 7 days #14 tabs 12/03/22 The patient's discharge medication list was reviewed for discrepancies and discrepancies were resolved. Counselled by Andrez Wall PharmD Candidate
--- NOTE | 2022-12-03 11:05 | CASEMGMT ---
Pt does not require increase in oxygen needs.
--- NOTE | 2022-12-03 12:10 | DS.PCM_ITS ---
Providers Date of Admission: 11/30/22 Primary Care Physician: Dr. Julio Draper MD Reason For Visit: LLL PNEUMONIA Diagnosis Discharge Diagnosis (1) Community acquired pneumonia: Status: Acute Code(s): J18.9 - Pneumonia, unspecified organism (2) Leukocytosis: Status: Acute Code(s): D72.829 - Elevated white blood cell count, unspecified (3) Elevated serum creatinine: Status: Acute Code(s): R79.89 - Other specified abnormal findings of blood chemistry (4) Hyperglycemia: Status: Acute Code(s): R73.9 - Hyperglycemia, unspecified (5) Fever and chills: Status: Acute Code(s): R50.9 - Fever, unspecified Medications at Discharge Home Medications albuterol sulfate 90 mcg/actuation aerosol inhaler (Ventolin HFA) 2 puff inhalation Q4H PRN PRN Shortness Of Breath 08/28/15 montelukast 10 mg tablet 10 mg PO QHS ALLERGIES 02/25/18 fluticasone fur. 100 mcg-umeclid 62.5 mcg-vilant 25 mcg inhalat.powder (Trelegy Ellipta) 1 inh inhalation DAILY COPD 05/01/21 fluticasone propionate 50 mcg/actuation nasal spray,suspension 2 spray intranasal QHS ALLERGIES 05/01/21 levofloxacin 750 mg tablet 750 mg PO DAILY #7 tabs 12/03/22 prednisone 20 mg tablet 40 mg PO DAILY 7 days #14 tabs 12/03/22 Hospital Course Operations None Procedures None Summary of Care Provided Minutes Spent on Discharge: 37 Hospital Course: Per HPI: SNEHA CARDENAS, is a 67 F who presented to the emergency department at [facility] on 11/30/2022 with fever, cough, and shortness of breath.? Patient states her symptoms started this past Tuesday.? She started having a nonproductive cough and some left-sided pleuritic chest pain.? She came emergency department on 11/28/2022 and her work-up at that time did not reveal any cardiac causes of chest pain and she was discharged home.? She was told to watch for development of a fever.? She states she did start having a fever later that day but was hoping it would go away and did not return the emergency department at that time and actually waited yesterday as well as she was hoping to get better.? She has had persistent chest pain with coughing.? Pain continues to be pleuritic.? Cough is nonproductive.? She is at increased shortness of breath but oxygen saturations have been okay on her baseline 2 L of nasal cannula.? She developed a fever at home which at Tmax was 102 degrees.? She also is complaining of some nausea and vomiting that started today and her oral intake has been poor.? Since she continued to feel poorly she represented to the emergency department on 11/30/2022. Vital signs on presentation demonstrated temperature of 100.4, heart rate 114, blood pressure 128/58, respiratory rate 18 and oxygen saturations were 95% on 2 L nasal cannula.? CBC demonstrated white count of 29.2 thousand with a significant left shift having an 88% neutrophilia.? ABG showed a pH of 7.48 with an elevated serum bicarbonate 27.5/PCO2 of 37.0 and a PO2 of 62 on 2 L nasal cannula.? Sat was 93%.? Chemistry panel shows mild hyponatremia with a sodium of 134, her serum creatinine is 1.07 which is a little higher than her baseline.? Serum glucose is 146.? Lactic acid was normal 1.8.? Liver functions are normal.? Chest x-ray shows a left lower lobe infiltrate which is new compared to previous imaging done 2 days ago. Levaquin was started the emergency department request for admission was made. Hospital Course: 1. COPD exacerbation as well as a left lower lobe community-acquired pneumonia in the setting of chronic hypoxic respiratory failure?67-year-old female presented to the hospital with increasing shortness of breath, as well as left- sided chest pain and a cough. She chronically wears 2 L of oxygen at home and states that she has not had to go up on it but she has noticed that prior to admission minimal activity was causing her oxygen saturations to be down in the 70s while on her 2 L. Today she is feeling much better than when she came in, she has been on Levaquin and her white count has steadily decreased and is normal today. I discussed with her the plan for possible discharge today she ex pressed understanding of the risk benefits going home and would like to go home today. She did have an ambulatory pulse ox prior to discharge and she maintained 91% on her 2 L nasal cannula with ambulation. I do recommend that she follow-up with her PCP and her final finisher on discharge. We will continue with 7 days of Levaquin as well as 7 days of steroids. Physical Exam Narrative General: Alert, Oriented x3, Cooperative, No apparent distress HEENT: Atraumatic, PERRLA, EOMI, Normocephalic Oral: Moist Mucosa Neck: Supple, No JVD Lungs: Diminished, reduced air movement, No rhonchi, No wheeze, No rales Cardiovascular: Regular rate, Regular Rhythm, Normal S1, Normal S2, No murmurs Abdomen: Soft, Non Tender, Non-Distended, No Hepato-splenomegaly Extremities: No edema, Capillary Refill Less than 3 Seconds Skin: No rashes, No breakdown Musculoskeletal: No Tenderness to Palpation of Joints or Extremities Neurological: Cranial nerves II-XII grossly intact, Motor Exam 5/5 strength throughout, Sensory exam intact to light touch and pain Psych/Mental Status: Normal Affect, Appropriate Weight / BMI Weight Weight: 156 lb 8.451 oz Body Mass Index (BMI) 26.9 ABG / Lab / Microbiology Data Result Diagrams: 12/03/22 05:48 12/03/22 05:48 Laboratory: Laboratory Results - last 24 hr 12/03/22 05:48: WBC 7.5, RBC 3.71 L, Hgb 10.8 L, Hct 33.4 L, MCV 90.0, MCH 29.1, MCHC 32.3, RDW Std Deviation 42.5, RDW Coeff of Laly 12.9, Plt Count 273, MPV 9.9, Immature Gran % (Auto) 0.800, Neut % (Auto) 83.3 H, Lymph % (Auto) 12.7 L, [place] % (Auto) 3.1, Eos % (Auto) 0.0, Baso % (Auto) 0.1, Absolute Neuts (auto) 6.2, Absolute Lymphs (auto) 0.95, Nucleated RBC % 0 12/03/22 05:48: Sodium 139, Potassium 4.2, Chloride 103, Carbon Dioxide 31.0, Anion Gap 5, BUN 19 H, Creatinine 0.72, Estim Creat Clear Calc 47.79, Est GFR (MDRD) Af Amer 104, Est GFR (MDRD) Non-Af 86, BUN/Creatinine Ratio 26.3 H, Glucose 137 H, Calcium 8.6 Microbiology: Microbiology 11/30/22 11:55 Blood Culture (Wb) - Anticubital Left Blood Culture - Preliminary No growth in 48 hours. 11/30/22 11:25 Blood Culture (Wb) - Anticubital Left Blood Culture - Preliminary No growth in 48 hours. 12/01/22 10:05 Nasal Secretion SARS-CoV-2 Antigen (Rapid) - Final 11/30/22 15:15 Mucosa - Nasopharyngeal Respiratory Panel (PCR) - Final 11/30/22 14:00 Urine, Clean Catch Legionella Antigen - Final 11/30/22 14:00 Urine, Clean Catch Streptococcus pneumoniae Antigen (M - Final D/C Instructions Discharge Diet: No restrictions Call your doctor if you observe: Fever of 101 or Higher, Shortness of breath, Dizziness, Fainting spells, Swelling in the ankles, Chest pain and Increased palpitations (irregular heartbeat) Meaningful Use Info Meaningful Use Diagnoses (Choose all that apply): None applicable Discharge Plan Admission Admit Date/Time: 11/30/22 12:37 Attending Provider: Mihai Izaguirre Primary Care Provider: Julio Draper Consulting Providers: January Perez ; Yemi Celaya Discharge Orders/Prescriptions Prescriptions: New levofloxacin 750 mg tablet 750 mg PO DAILY Qty: 7 0RF prednisone 20 mg tablet 40 mg PO DAILY 7 Days Qty: 14 0RF Continued albuterol sulfate [Ventolin HFA] 1 INHALER inhaler 2 puff inhalation Q4H PRN PRN (Reason: Shortness Of Breath) Label Comments: shortness of breath montelukast 10 MG tablet 10 mg PO QHS fluticasone propionate 50 mcg/actuation spray,suspension 2 spray INTRANASAL QHS Label Comments: Use 1 [place] in each nostril once daily. Trelegy Ellipta 100-62.5-25 mcg blister with device 1 inh INHALATION DAILY Label Comments: Inhale 1 Puff as instructed once daily. Referrals / Follow Up: Julio Draper MD [Primary Care Provider] - Within 1 Week Disposition Disposition (needs filled in before D/C Order can be placed): Home, Self Care Charges/Coding Visit Charges Inpatient E&M: 62043 Disch Hosp >30min
== END 2022-12-03 11:27 | disposition home or self-care (01) | DRG 194 ==
LOC: ED 12:36 → MS3 12:46
PROVIDERS: Internal Medicine; Admitting Provider Internal Medicine; Emergency Provider Emergency Medicine; PCP Internal Medicine; Visit Provider Family Medicine
DX: J18.9 Pneumonia, unspecified organism (principal); J44.1 Chronic obstructive pulmonary disease with (acute) exacerbation; E87.1 Hypo-osmolality and hyponatremia; J96.11 Chronic respiratory failure with hypoxia; J44.0 Chronic obstructive pulmonary disease with (acute) lower respiratory infection; Z99.81 Dependence on supplemental oxygen; I10 Essential (primary) hypertension; J30.2 Other seasonal allergic rhinitis; J98.01 Acute bronchospasm; R73.9 Hyperglycemia, unspecified; Z87.891 Personal history of nicotine dependence; Z86.16 Personal history of COVID-19; Z79.51 Long term (current) use of inhaled steroids
CPT/HCPCS: 36415; 36600; 71045; 80048; 80053; 82803; 83605; 83735; 84100; 85025; 87040; 87449; 87633; 87641; 87811; 93005; 94640; 94668; 99252; 99284; J7030; J7120; A4216; G0463; J2405

== ENCOUNTER 2023-06-01 00:42 | Emergency (ER) | payer OTHER, SELFPAY ==
--- NOTE | 2023-06-01 02:35 | CT_ITS ---
INDICATION: SOB EXAMINATION: CT CHEST WITH CONTRAST - CTA Chest WO/W Contrast Injection TECHNIQUE: Helically acquired images were obtained of the chest following IV contrast timed in the pulmonary arterial phase with sagittal and coronal reconstructed images. Post-processing of the angiographic images was performed with multiplanar reformation and 3D reconstruction. Individualized dose optimization techniques were used for this CT. IV contrast dosage and agent: 100 mL of Isovue-370. COMPARISON: 11/02/2021 CT. FINDINGS: LUNGS, PLEURA AND LARGE AIRWAYS: No consolidation or edema. Bilateral calcified granulomas. 3 mm noncalcified nodule in the left lower lobe, stable as compared to 06/08/2021. Small right pleural effusion. Right basilar atelectasis. Centrilobular emphysema changes. No pneumothorax. THYROID: Unremarkable. HEART AND PERICARDIUM: Coronary artery calcifications are present. No pericardial effusion. No evidence of right heart strain. Right ventricle to left ventricle ratio measures less than 1. MEDIASTINUM AND KATHLEEN: Calcified mediastinal and bilateral hilar lymph nodes. Esophagus is unremarkable. No hiatal hernia. VESSELS: No pulmonary embolism. No thoracic aortic aneurysm. UPPER ABDOMEN: The visualized upper abdomen is unremarkable. BONES: No acute abnormality. CT/CTA Chest W/WO Contrast IMPRESSION: 1. No pulmonary embolism. 2. Right lower lobe pneumonia versus atelectasis and small right pleural effusion. Electronically Signed: Garo Crawford DO at 3:59 EST ,
--- NOTE | 2023-06-01 06:08 | EDS_ITS ---
HPI Narrative Narrative: Cristiana Perdomo 1955 HPI: Patient is a 68-year-old female with past medical history of pulmonary nodules who wears 2 to 3 L nasal cannula oxygen 24/01. ?She states she had a CT scan roughly 1 week ago which showed that her nodules are at baseline with a there is a new nodule which is enlarged and she will need a PET scan and potential biopsy.? She states that after that scan she began developing fevers and chills and increased shortness of breath and was therefore placed on Levaquin. ?She says she has had that for approximately 48 hours but has not had any symptom improvement.? She states there is pain along the right anterior chest wall that is worse with palpation and motion and she has concern for infection as the cause and therefore comes in for evaluation Review of systems: Review of systems is positive for fevers and chills and fatigue with cough shortness of breath and right rib pain Review of systems is negative for abdominal pain nausea vomiting diarrhea dysuria or diaphoresis Physical exam: General: Awake alert no acute distress Heart: Heart is regular rate and rhythm without murmurs rubs or gallops.? Radial and carotid pulses are equal and symmetric Lungs: Breath sounds are diminished throughout with faint expiratory wheeze in the bilateral bases but no nasal flaring retractions tachypnea or accessory muscle use Abdomen: Abdomen is soft nontender and nondistended with normal active bowel sounds no voluntary guarding rigidity or pulsatile mass Extremities: No asymmetric edema no pitting edema negative Homans' sign bilaterally Chest: There is a reducible right anterior lateral chest wall pain with palpation without bony deformity or crepitance Skin: No overlying erythema or warmth or rash to suggest infection no ecchymosis or abrasions to suggest trauma Medical decision making: Patient presented to the ER satting 93 to 95% on her normal oxygen. ?She reported that she has had right-sided chest pain without trauma and has had fever and cough and therefore differential diagnosis is for pneumonia versus pleural effusion versus pneumothorax but as she also reports history of lung nodules with potential cancer she is at risk for a pulmonary embolus.? Secondary to his basic labs were obtained as well as a CTA of the chest. ?Labs revealed leukocytosis at 13 but otherwise no clinically significant finding. ?CT of the c hest revealed no PE or pneumothorax but did question pneumonia versus effusion on the right where she has her pain. ?Based on her elevated white count and reported temperature I do feel this is pneumonia.? However the patient is not requiring extra oxygen from her baseline and she is not hypotensive or tachycardic and therefore does not qualify as sepsis and does not need admitted. ?She is already on Levaquin so she is to continue this but Zithromax will be added for atypical coverage. ?She understands to take both medications until they are completed and she agrees to return if symptoms are failing to improve however at this time as she is not showing signs of sepsis or increased respiratory distress requiring increased oxygen from her baseline she is safe for discharge. Diagnosis: Right lower lobe pneumonia [facility] Medical History Anxiety Asthma Benign essential hypertension Benign essential tremor COPD (chronic obstructive pulmonary disease) Former tobacco use Migraines On home oxygen therapy Pneumonia due to COVID-19 virus Home Medications albuterol sulfate 90 mcg/actuation aerosol inhaler (Ventolin HFA) 2 puff inhalation Q4H PRN PRN Shortness Of Breath 08/28/15 [History Last Taken 11/30/22 10:00] montelukast 10 mg tablet 10 mg PO QHS ALLERGIES 02/25/18 [History Last Taken 11/29/22] fluticasone fur. 100 mcg-umeclid 62.5 mcg-vilant 25 mcg inhalat.powder (Trelegy Ellipta) 1 inh inhalation DAILY COPD 05/01/21 [History Last Taken 11/30/22] fluticasone propionate 50 mcg/actuation nasal spray,suspension 2 spray intranasal QHS ALLERGIES 05/01/21 [History Last Taken 11/28/22] levofloxacin 750 mg tablet 750 mg PO DAILY #7 tabs 12/03/22 [Rx Last Taken Unknown] prednisone 20 mg tablet 40 mg (2 x 20 mg) PO DAILY 7 days #14 tabs 12/03/22 [Rx Last Taken Unknown] Allergy/AdvReac Type Severity Reaction Status Date / Time cephalexin monohydrate Allergy Chest Verified 11/30/22 10:40 [From Keflex] tightness Surgical History H/O bilateral salpingectomy History of herniorrhaphy Hx of cholecystectomy Hx of tonsillectomy Social History adopted: Yes household members: family housing: house Smoking Status: Former smoker alcohol intake: never substance use type: does not use MDM MDM Radiography Diagnostic Testing: Clinical Impression(s) from Imaging Studies Chest CTA 06/01/23 02:35 IMPRESSION: 1. No pulmonary embolism. 2. Right lower lobe pneumonia versus atelectasis and small right pleural effusion. Electronically Signed: Garo Crawford DO at 3:59 EST , Discharge Plan Triage ED Provider: Hoang Foster Dx/Rx/DC Orders Clinical Impression: Pulmonary nodules, Right lower lobe pneumonia Prescriptions: No Action albuterol sulfate [Ventolin HFA] 1 INHALER inhaler 2 puff inhalation Q4H PRN PRN (Reason: Shortness Of Breath) Patient Comments: shortness of breath montelukast 10 MG tablet 10 mg PO QHS fluticasone propionate 50 mcg/actuation spray,suspension 2 spray INTRANASAL QHS Patient Comments: Use 1 [place] in each nostril once daily. Trelegy Ellipta 100-62.5-25 mcg blister with device 1 inh INHALATION DAILY Patient Comments: Inhale 1 Puff as instructed once daily. levofloxacin 750 mg tablet 750 mg PO DAILY Qty: 7 0RF prednisone 20 mg tablet 40 mg PO DAILY 7 Days Qty: 14 0RF Primary Care Provider: Julio Draper Referrals: Julio Draper MD [Primary Care Provider] - Disposition Disposition: Home, Self Care
[2023-06-01 06:35] LABS: Anion Gap 4 (5-15); BUN 13 mg/dL (7-18); BUN/Creat Ratio 16.7 RATIO (10-20); Calcium,Total 8.9 mg/dL (8.5-10.1); Chloride 105 mmol/L (98-107); Creatinine, Serum 0.78 mg/dL (0.55-1.02); EST Glomerular Filtration Rate 78 mL/min (>60); Est Glom Filt Rate - Afr Amer 95 mL/min (>60); Glucose 125 mg/dL (74-106); Magnesium 2.2 mg/dL (1.6-2.6); Potassium 3.3 mmol/L (3.5-5.1); Sodium Level 140 mmol/L (136-145)
[2023-06-01 12:42] LABS: Hematocrit 33.5 % (37-47); Hemoglobin 10.9 g/dL (12.0-15.0); Mean Corp Hgb Conc 32.5 g/dL (32-36); Mean Corpuscular Hgb 29.5 pg (27.0-32.0); Mean Corpuscular Volume 90.8 fL (81-99); Mean Platelet Vol. 10.2 fl (6.2-12.0); Platelet Count 348 K/mm3 (150-450); RBC Distribution Width CV 12.3 % (11.6-14.6); RBC Distribution Width SD 40.9 fl (35.1-43.9); Red Blood Count 3.69 M/mm3 (4.2-5.4); White Blood Count 13.4 K/mm3 (4.4-11.0)
[2023-06-01 12:44] LABS: Absolute Lymphocyte Count 1.05 X10^3/uL (0.83-4.51); Absolute Neutrophil Count 10.7 X10^3/uL (2.0-7.7); Basophil# 0.05 X10^3/uL; Basophil% 0.4 % (0-1); Eosinophil# 0.27 X10^3/uL; Lymphocyte # 1.05 X10^3/ul (0.83-4.51); Lymphocyte % 7.9 % (19-41); Monocyte# 1.24 X10^3/uL; Monocyte% 9.3 % (0-10); NRBC Flagged by Analyzer 0 % (0-5)
[2023-06-01 12:45] LABS: Partial Thromboplast Time 30.9 Seconds (24.1-36.2); Prothrombin Time (Protime)PT. 13.6 SECONDS (11.7-14.9)
== END 2023-06-01 06:09 | disposition home or self-care (01) ==
PROVIDERS: Emergency Provider Emergency Medicine; PCP Internal Medicine; Visit Provider Emergency Medicine
DX: J18.9 Pneumonia, unspecified organism (principal); J44.9 Chronic obstructive pulmonary disease, unspecified; I10 Essential (primary) hypertension; Z87.891 Personal history of nicotine dependence; Z99.81 Dependence on supplemental oxygen; Z79.51 Long term (current) use of inhaled steroids; Z90.49 Acquired absence of other specified parts of digestive tract; R91.8 Other nonspecific abnormal finding of lung field; R06.02 Shortness of breath
CPT/HCPCS: 36415; 71275; 80048; 83735; 85025; 85610; 85730; 87428; 96374; 96375; 99285; J7030; Q9967; A4216; J2405

== ENCOUNTER 2023-06-02 08:53 | Inpatient (IN) | payer OTHER, MEDICARE, SELFPAY ==
[2023-06-02] VITALS (30 sets, daily range): BP systolic 79–164; BP diastolic 34–114; PULSE 89–124; RESP 12–35; TEMP 36.6–38.3; O2SAT 91–99; BMI 28.0; BMI 27.5
--- NOTE | 2023-06-02 09:11 | RAD_ITS ---
STUDY: X-RAY CHEST REASON FOR EXAM: Female, 68 years old. Eval pneumonia TECHNIQUE: Single AP portable view of the chest. COMPARISON: Comparison is made with prior study dated November 30, 2022. FINDINGS: EKG electrodes are seen. Small right pleural effusion with right basilar infiltrate. There is no demonstrated pleural abnormality. Normal size heart. Normal mediastinum and katelyn. Normal visualized pulmonary arteries. There is atherosclerotic calcification of the aortic arch with tortuosity. There is a mild levoscoliosis of the thoracic spine. Status post right shoulder replacement. There is no demonstrated abnormality of the visualized soft tissue structures of the upper abdomen. RAD/Chest 1 View (Portable) IMPRESSION: Small right pleural effusion with right basilar infiltrate. Electronically Signed: Michael Gaxiola MD at 10:05 EST ,
--- NOTE | 2023-06-02 09:11 | EKG12_ITS ---
Test Reason : SOB Blood Pressure : / mmHG Vent. Rate : 122 BPM Atrial Rate : 122 BPM P-R Int : 162 ms QRS Dur : 078 ms QT Int : 308 ms P-R-T Axes : 024 079 013 degrees QTc Int : 438 ms Sinus tachycardia Otherwise normal ECG Confirmed by ROB DORANTES, LUCRETIA ([id number]), copy editor EDGARD HURTADO ([id number]) on 06/03/2023 9:28:37 AM Referred By: Confirmed By:LUCRETIA RIVAS MD
--- NOTE | 2023-06-02 09:18 | EDS_ITS ---
HPI History of Present Illness Chief Complaint: Shortness of Breath Informant: patient and spouse/S.O. Onset/Context/Timing Onset: Days (3) Context: gradual and onset Timing: Continuous Current Severity: Severe Maximum Severity: Severe Relieved by: Albuterol (until this AM) Narrative Narrative: 68-year-old female on home oxygen for COPD diagnosed with pneumonia in the right lung 2-3 days ago here in the ER also with a lung mass that was previously unknown although she has had nodules in the right lung before according to the significant other. According to him, she has been declining ever since she was sent home. She states albuterol treatments were helping temporarily until today where they were not. She was discharged home on antibiotics and steroids she has not taken it today yet. [facility] Medical History Anxiety Asthma Benign essential hypertension Benign essential tremor COPD (chronic obstructive pulmonary disease) Former tobacco use Migraines On home oxygen therapy Pneumonia due to COVID-19 virus Home Medications albuterol sulfate 90 mcg/actuation aerosol inhaler (Ventolin HFA) 2 puff inhalation Q4H PRN PRN Shortness Of Breath 08/28/15 [History Last Taken 11/30/22 10:00] montelukast 10 mg tablet 10 mg PO QHS ALLERGIES 02/25/18 [History Last Taken 11/29/22] fluticasone fur. 100 mcg-umeclid 62.5 mcg-vilant 25 mcg inhalat.powder (Trelegy Ellipta) 1 inh inhalation DAILY COPD 05/01/21 [History Last Taken 11/30/22] fluticasone propionate 50 mcg/actuation nasal spray,suspension 2 spray intranasal QHS ALLERGIES 05/01/21 [History Last Taken 11/28/22] levofloxacin 750 mg tablet 750 mg PO DAILY #7 tabs 12/03/22 [Rx Last Taken Unknown] prednisone 20 mg tablet 40 mg (2 x 20 mg) PO DAILY 7 days #14 tabs 12/03/22 [Rx Last Taken Unknown] oxycodone-acetaminophen 5 mg-325 mg tablet (Percocet) 1 tab PO Q6H PRN pain 4 days #14 tabs 06/01/23 [Rx Last Taken Unknown] Allergy/AdvReac Type Severity Reaction Status Date / Time cephalexin monohydrate Allergy Chest Verified 06/02/23 08:53 [From Keflex] tightness Surgical History H/O bilateral salpingectomy History of herniorrhaphy Hx of cholecystectomy Hx of tonsillectomy Social History adopted: Yes household members: family housing: house Smoking Status: Former smoker alcohol intake: never substance use type: does not use ROS ROS ED Review of Systems ROS Unobtainable: other Details: Limited ROS due to acuity Constitutional Constitutional ED: Reports chills, fatigue, fever(s) and malaise Eyes Eyes: Denies change in vision Cardiovascular Cardiovascular: Reports chest pain; Denies palpitations Respiratory/Chest Respiratory/Chest: Reports cough and dyspnea Gastrointestinal Gastrointestinal: Reports diarrhea; Denies abdominal pain, nausea or vomiting Genitourinary Genitourinary ED: Denies dysuria or hematuria Musculoskeletal Musculoskeletal: Denies neck pain Integumentary Denies abscess or rash Neurologic Neurologic: Denies paresthesias or weakness EXAM Physical Exam Const Vital Signs: 06/02/23 08:59 06/02/23 09:03 06/02/23 09:07 Temperature 100.9 F H 100.9 F H Temperature Source Temporal Temporal Pulse Rate 122 H 124 H Respiratory Rate 35 H 35 H Respiratory Effort Short of Breath Labored Accessory Muscle Use Respiratory Depth Shallow Respiratory Pattern Tachypnea Blood Pressure 79/34 L 79/34 L Blood Pressure Mean 49 49 Pulse Ox 99 98 Oxygen Delivery Method Nasal Cannula Venturi Mask Fraction of Inspired Oxygen (FIO2) 06/02/23 09:11 06/02/23 09:41 06/02/23 09:35 Temperature Temperature Source Pulse Rate 120 H 122 H Respiratory Rate 29 H 33 H Respiratory Effort Respiratory Depth Respiratory Pattern Tachypnea Tachypnea Blood Pressure Blood Pressure Mean Pulse Ox 95 Oxygen Delivery Method Venturi Mask Fraction of Inspired Oxygen (FIO2) 50 06/02/23 10:00 06/02/23 09:53 Temperature Temperature Source Pulse Rate 118 H 113 H Respiratory Rate 28 H 30 H Respiratory Effort Respiratory Depth Respiratory Pattern Tachypnea Blood Pressure 97/85 H Blood Pressure Mean 89 Pulse Ox 93 98 Oxygen Delivery Method Bi-pap Fraction of Inspired Oxygen (FIO2) 50 Positive well nourished and well developed Constitutional Narrative: Ill-appearing, moderate respiratory distress General Appearance ED: well developed and NAD HEENT Reports moist mucous membranes normocephalic and atraumatic Eyes PERRL and EOMs intact bilaterally Neck full ROM, supple and no meningeal signs Neck Narrative: Tracheal tugging with inspiration Resp Resp Narrative: In acute respiratory distress with retractions. Poor air movement, diminished throughout, more diminished on the right than the left, trachea midline. Cardio regular rate and regular rhythm Rate: tachycardic GI non-tender and non-distended Auscultation: normoactive bowel sounds Palpation: soft Back/Spine no CVA tenderness General Back: other FROM Extremity normal to inspection and no calf tenderness General Extremety ED: Negative for edema, pulses abnormal or tenderness General Extremity: Negative for edema or pulses abnormal Neuro oriented x3, CN's II-XII intact bilaterally and no sensory deficits noted Neuro Narrative: Moving all 4 extremities equally. Answering questions 1-3 word sentences, appropriately Sensorium / Orientation: awake and alert Speech: speech normal Motor Exam: general weakness Psych Mood & Affect: anxious Skin no rashes or lesions noted and no wounds Sepsis Attestation Sepsis Alert: Yes Sepsis Attestation: Agree w/Sepsis Date exam was performed: 06/02/23 Time exam was performed: 09:27 Possible Source of Sepsis: Pulmonary Sepsis Organ Dysfunction Criteria Present: SBP < 90 mmHg or MAP < 65 mmHg and Acute Respiratory Failure (New need for BiPAP/CPAP or MV) Fluid Resuscitation Fluid resuscitation indicated?: Yes Fluid Resuscitation ordered: 30 ml/kg fluid bolus ordered Amount of fluid ordered: 2,250 Sepsis Note Date exam was performed: 06/02/23 Time exam was performed: 10:43 Sepsis Attestation: Sepsis re-evaluation was performed Response to fluids: Fluid responsive hypotension (125/69) MDM MDM MDM Narrative Medical decision making narrative: Patient appears very ill and is hypotensive, tachycardic. Septic workup ordered along with 30 cc/kg IV fluid bolus, and respiratory called emergently to put the patient on BiPAP. Prior to getting onto the machine, I had a bharat discussion with the patient that she clearly is struggling to breathe and needs help, and if this fails she confirms it would be okay to intubate her. I had BiPAP put her on AVAPS mode in order to try to assess tidal volumes while providing beta agonist and IV steroid therapy. She seems to be doing okay on the BiPAP, pulling the 450 tidal volumes that we set, and helping her work of breathing. Therefore we elected to continue watching her on this, an ABG to be obtained. ABG shows what appears to be a pure acute respiratory acidosis due to hypercapn ia, confirming need for BiPAP. Baseline pCO2 appears to be about 37, she is 62 today. She was very anxious with this, I felt the benefits of a small dose of IV Ativan outweigh the risks in order to allow her to stay on BiPAP and avoid intubation. 631 view on my interpretation consistent with right lower lobe pneumonia and parapneumonic effusion, radiology in agreement, her other labs are noted. Prior to today patient has been on Levaquin and Zithromax. She has an allergy to cephalexin, listed as chest tightness. Assuming this could be anaphylactoid in nature, following the sepsis treatment protocol and trying to choose an antibiotic different than Levaquin, assuming she could be septic shock until proven otherwise, I have started doses of meropenem and ciprofloxacin. Discussed with critical care, agrees with the above management. Discussed viral swabs, COVID and influenza were obtained 2 days ago and negative, will add the other viral panel. History & Record Review Additional record(s) reviewed:: Prior outpatient record (Old pCO2 May this year), Prior ED visit and Other (CTA from yesterday showing nodules & calcified granulomas, no mass noted, no PE, small right pleural effusion and possible infiltrate) Lab Data Attestation: I reviewed the patient's lab results. Labs: Laboratory Results - last 24 hr 06/02/23 06/02/23 09:26 10:34 WBC 23.8 H RBC 4.09 L Hgb 11.9 L Hct 36.8 L MCV 90.0 MCH 29.1 MCHC 32.3 RDW Std Deviation 41.5 RDW Coeff of Laly 12.5 Plt Count 504 H MPV 10.0 Immature Gran % (Auto) 0.600 Neut % (Auto) 84.8 H Lymph % (Auto) 9.2 L [place] % (Auto) 3.9 Eos % (Auto) 1.1 Baso % (Auto) 0.4 Absolute Neuts (auto) 20.2 H Absolute Lymphs (auto) 2.18 Nucleated RBC % 0 PT 14.7 INR 1.2 APTT 29.1 Sodium 136 Potassium 3.6 Chloride 101 Carbon Dioxide 29.0 Anion Gap 6 BUN 15 Creatinine 0.87 Estim Creat Clear Calc 54.18 Est GFR (MDRD) Af Amer 84 Est GFR (MDRD) Non-Af 69 BUN/Creatinine Ratio 17.3 Glucose 187 H Lactic Acid 1.6 Calcium 9.4 Total Bilirubin 0.70 AST 18 ALT 14 Alkaline Phosphatase 112 Total Protein 7.9 Albumin 3.0 L Globulin 4.9 H Albumin/Globulin Ratio 0.6 L Urine Color Yellow Urine Clarity Cloudy Urine pH 5.0 Ur Specific [place] 1.030 Urine Protein 100 H Urine Glucose (UA) Normal Urine Ketones 5 H Urine Occult Blood 150 H Urine Nitrite Negative Urine Bilirubin Negative Urine Urobilinogen Normal Ur Leukocyte Esterase Negative Urine RBC 0-5 SEEN Urine WBC 0 SEEN Ur Squamous Epith Cells 0-5 SEEN Urine Bacteria 1+ Hyaline Casts 0-5 SEEN Urine Mucus 2+ ABG Data Attestation: I personally reviewed and interpreted this ABG as follows: ABG results: ABG 06/02/23 09:53 Specimen Type ART Sample Site R Brach pH 7.25 L Bicarbonate Actual 26.9 H Total CO2 29 Base Excess 0 O2 Saturation 90 L O2 % 3.0 ABG pCO2 62.0 H ABG pO2 70 L O2 Delivery Device Not entered Vent Mode Not entered Radiography Diagnostic Testing: Clinical Impression(s) from Imaging Studies Chest X-Ray 06/02/23 09:11 IMPRESSION: Small right pleural effusion with right basilar infiltrate. Electronically Signed: Michael Gaxiola MD at 10:05 EST , Rhythm Strip Rhythm Strip: Sinus Tach Rate: 120 Ectopy: None EKG Initial EKG: Attestation: I personally reviewed and interpreted this EKG as follows: Interpretation: No Acute Injury Pattern and Sinus Tachycardia Management Discussion w/another healthcare provider: Hospitalist and Hydraulic Barker Operator (alonso Evangelista) Critical Care Time Critical Care Time: Yes Critical care time (excluding procedures): 30-74 minutes (40 min), Including time spent:, Discussing w/Patient &/or Family/Electronic Service Technician, Discussing w/Consultants, Arranging Admission or Transfer and Performing Direct Patient Care at Bedside Discharge Plan Dx/Rx/DC Orders Clinical Impression: Acute and chronic respiratory failure, unspecified whether with hypoxia or hypercapnia, Acute exacerbation of chronic obstructive pulmonary disease (COPD), Community acquired pneumonia of right lower lobe of lung, Failure of outpatient treatment, Lung nodules, Parapneumonic effusion Disposition Disposition: [facility]
[2023-06-02] MEDS: 0.9% Normal Saline (1000mL) 1,000 ML 999 ML IV ×2 (09:25→09:26)
[2023-06-02] MEDS: MethylPREDNISolone 125 MG/2 ML Vial IV (09:29)
[2023-06-02 09:33] LABS: Absolute Lymphocyte Count 2.18 X10^3/uL (0.83-4.51); Absolute Neutrophil Count 20.2 X10^3/uL (2.0-7.7); Basophil% 0.4 % (0-1); Eosinophil# 0.26 X10^3/uL; Eosinophils% 1.1 % (0-5); Hematocrit 36.8 % (37-47); Hemoglobin 11.9 g/dL (12.0-15.0); Lymphocyte # 2.18 X10^3/ul (0.83-4.51); Lymphocyte % 9.2 % (19-41); Mean Corp Hgb Conc 32.3 g/dL (32-36); Mean Corpuscular Hgb 29.1 pg (27.0-32.0); Monocyte# 0.93 X10^3/uL; Monocyte% 3.9 % (0-10); NRBC Flagged by Analyzer 0 % (0-5); Neutrophil # 20.15 X10^3/uL (2.7-7.7); Neutrophil % 84.8 % (47-70); POSITIVE DIFFERENTIAL YES; Platelet Count 504 K/mm3 (150-450); RBC Distribution Width CV 12.5 % (11.6-14.6); RBC Distribution Width SD 41.5 fl (35.1-43.9); Red Blood Count 4.09 M/mm3 (4.2-5.4); White Blood Count 23.8 K/mm3 (4.4-11.0)
[2023-06-02 09:35] LABS: Differential Indicated SCAN CRITERIA MET
[2023-06-02] MEDS: Ondansetron 4 MG/2 ML Vial IV (09:36)
[2023-06-02] MEDS: Terbutaline 1 MG/ML Vial 0.25 MG SC (09:36)
[2023-06-02 09:49] LABS: ALB/GLOB Ratio 0.6 RATIO (0.9-2.4); AST(SGOT) 18 U/L (15-37); Alanine Aminotransfer ALT/SGPT 14 U/L (13-56); Alkaline Phosphatase 112 U/L (45-117); Anion Gap 6 (5-15); BUN 15 mg/dL (7-18); BUN/Creat Ratio 17.3 RATIO (10-20); Calcium,Total 9.4 mg/dL (8.5-10.1); Chloride 101 mmol/L (98-107); Creatinine, Serum 0.87 mg/dL (0.55-1.02); EST Glomerular Filtration Rate 69 mL/min (>60); Est Glom Filt Rate - Afr Amer 84 mL/min (>60); Estimated Creatinine Clearance 54.18 ml/min; Globulin 4.9 g/dL (2.2-4.2); Glucose 187 mg/dL (74-106); Potassium 3.6 mmol/L (3.5-5.1); Protein, Total 7.9 g/dL (6.4-8.2); Sodium Level 136 mmol/L (136-145)
[2023-06-02 09:52] LABS: International Normalized Ratio 1.2; Lactic Acid 1.6 mmol/L (0.4-1.9); Partial Thromboplast Time 29.1 Seconds (24.1-36.2); Prothrombin Time (Protime)PT. 14.7 SECONDS (11.7-14.9)
[2023-06-02] MEDS: Albuterol 2.5 MG/3 ML VIAL.NEB. INHALATION ×2 (09:53)
[2023-06-02] MEDS: Ipratropium/Albuterol Sulfate 3 ML AMPUL.NEB INHALATION ×4 (09:53→23:13)
[2023-06-02 09:57] LABS: Base Excess 0 mmol/L (-2 to +2); Bicarbonate 26.9 mmol/L (22-26); Blood Gas Specimen Type ART; Mode Not entered; O2 Delivery Device Not entered; PO2 70 mmHG (75-100); SITE R Brach; SO2 90 % (95-99); Total Carbon Dioxide 29 mmol/L; pH 7.25 (7.35-7.45)
--- NOTE | 2023-06-02 10:06 | CPS ---
Addendum entered by Rosetta Rodriguez 06/02/23 10:07: 3 liter nasal cannula Original Note: pt felt nauseated so stopped bipap put back on cannula
[2023-06-02] MEDS: LORazepam 2 MG/ML Syringe 0.5 MG IV (10:19)
[2023-06-02 10:37] LABS: White Blood Cells 0 SEEN /hpf (0-5)
[2023-06-02 10:48] LABS: Color, Urine Yellow (Yellow); Glucose, Dipstick Normal (Normal); Ketone-Dipstick 5 mg/dl (Negative); Leukocyte Esterase-Dipstick Negative /ul (Negative); Nitrite-Dipstick Negative (Negative); Occult Blood-Urine 150 /ul (Negative); Protein-Dipstick 100 mg/dl (Negative); Urine Bilirubin Dipstick Negative (Negative); Urine Clarity Cloudy (Clear); Urine Urobilinogen Normal (Normal)
--- NOTE | 2023-06-02 10:52 | PCM.HP.STD ---
HPI - General General Date of Admission: 06/02/23 Date of Service: 06/02/23 Chief Complaint: shortness of breath HPI Narrative SNEHA CARDENAS, is a 68 F with a PMH as outlined who presents via the ED on 06/02/2023 with a complaint of shortness of breath. She had been seen in the ED ~ 2 days prior to this admission and was diagnosed with pneumonia; she was sent home on antibiotics. However, she had been declining at home and hadnt even started the antibiotics she was sent on . She therefore came back to the ED due ot her worsening state. VItals on admission was [place] of 118, temp of 100.9F, RR of 30 and BP of 97/85 after receiving fluids. CBC showed Hb of 11.9, wbc of 23.8 and platelets of 504. ABG showed pH of 7.25 at the oxygen of 90% pCO2 of 60. Chemistry was unremarkable. Urinalysis showed no evidence of UTI. COVID and flu test was negative. Chest x-ray showed small right pleural effusion with a right basilar infiltrate. She was hydrated with fluids and blood pressure subsequently came up.. She was placed on BiPAP and has been admitted to be managed for acute hypoxic respiratory failure due to community-acquired pneumonia. [facility] Medical History Anxiety Asthma Benign essential hypertension Benign essential tremor COPD (chronic obstructive pulmonary disease) Former tobacco use Migraines On home oxygen therapy Pneumonia due to COVID-19 virus Home Medications albuterol sulfate 90 mcg/actuation aerosol inhaler (Ventolin HFA) 2 puff inhalation Q4H PRN PRN Shortness Of Breath 08/28/15 [History Last Taken 11/30/22 10:00] montelukast 10 mg tablet 10 mg PO QHS ALLERGIES 02/25/18 [History Last Taken 11/29/22] fluticasone fur. 100 mcg-umeclid 62.5 mcg-vilant 25 mcg inhalat.powder (Trelegy Ellipta) 1 inh inhalation DAILY COPD 05/01/21 [History Last Taken 11/30/22] fluticasone propionate 50 mcg/actuation nasal spray,suspension 2 spray intranasal QHS ALLERGIES 05/01/21 [History Last Taken 11/28/22] levofloxacin 750 mg tablet 750 mg PO DAILY #7 tabs 12/03/22 [Rx Last Taken Unknown] prednisone 20 mg tablet 40 mg (2 x 20 mg) PO DAILY 7 days #14 tabs 12/03/22 [Rx Last Taken Unknown] oxycodone-acetaminophen 5 mg-325 mg tablet (Percocet) 1 tab PO Q6H PRN pain 4 days #14 tabs 06/01/23 [Rx Last Taken Unknown] Allergy/AdvReac Type Severity Reaction Status Date / Time cephalexin monohydrate Allergy Chest Verified 06/02/23 08:53 [From Keflex] tightness Surgical History H/O bilateral salpingectomy History of herniorrhaphy Hx of cholecystectomy Hx of tonsillectomy Social History adopted: Yes household members: family housing: house Smoking Status: Former smoker alcohol intake: never substance use type: does not use ROS Constitutional Constitutional: Reports chills, fatigue, fever(s), malaise and weakness; Denies anorexia Eyes Eyes: Denies change in vision ENT HEENT: Denies dysphagia, headache(s), loss taste/smell, sore throat or throat swelling Cardiovascular Cardiovascular: Reports palpitations; Denies chest pain, claudication, edema or paroxysmal nocturnal dyspnea Respiratory/Chest Respiratory/Chest: Reports cough, shortness of breath at rest and shortness of breath with exertion; Denies wheezing Gastrointestinal Gastrointestinal: Reports nausea; Denies abdominal pain, constipation, diarrhea or vomiting Genitourinary Genitourinary: Denies nocturia Musculoskeletal Musculoskeletal: Denies back pain, joint pain, joint stiffness or muscle weakness Integumentary Integumentary: Denies dry skin or jaundice Neurologic Neurologic: Denies confusion or focal weakness Vital Signs Vital Signs Vital Signs: 06/02/23 08:59 06/02/23 09:03 06/02/23 09:07 Temperature 100.9 F H 100.9 F H Temperature Source Temporal Temporal Pulse Rate 122 H 124 H Respiratory Rate 35 H 35 H Respiratory Effort Short of Breath Labored Accessory Muscle Use Respiratory Depth Shallow Respiratory Pattern Tachypnea Blood Pressure 79/34 L 79/34 L Blood Pressure Mean 49 49 Pulse Ox 99 98 Oxygen Delivery Method Nasal Cannula Venturi Mask Fraction of Inspired Oxygen (FIO2) 06/02/23 09:11 06/02/23 09:41 06/02/23 09:35 Temperature Temperature Source Pulse Rate 120 H 122 H Respiratory Rate 29 H 33 H Respiratory Effort Respiratory Depth Respiratory Pattern Tachypnea Tachypnea Blood Pressure Blood Pressure Mean Pulse Ox 95 Oxygen Delivery Method Venturi Mask Fraction of Inspired Oxygen (FIO2) 50 06/02/23 10:00 06/02/23 09:53 Temperature Temperature Source Pulse Rate 118 H 113 H Respiratory Rate 28 H 30 H Respiratory Effort Respiratory Depth Respiratory Pattern Tachypnea Blood Pressure 97/85 H Blood Pressure Mean 89 Pulse Ox 93 98 Oxygen Delivery Method Bi-pap Fraction of Inspired Oxygen (FIO2) 50 Weight Weight: 164 lb 0.383 oz Body Mass Index (BMI) 28.0 Physical Exam Const alert Constitutional Narrative: frail, on BIPAP Orientation / Consciousness: lethargic HEENT normocephalic and head/scalp atraumatic Mouth: dry mucous membranes Eyes PERRL and EOMs intact bilaterally Neck no lymphadenopathy and supple Lymph Lymphatic: no lymphadenopathy noted Resp Resp Narrative: Patient on BiPAP, tachypneic, diminished breath sounds bibasilarly. bilateral wheezing, no crackles. Cardio regular rate, regular rhythm, S1 normal heart sound, S2 normal heart sound and no murmurs GI normal to inspection, nondistended, normoactive bowel sounds, soft to palpation, non-tender and non-distended Extremity General Extremity: no tenderness to palpation of joints or extremities Skin General Skin Exam: no breakdown Neuro CN's II-XII intact bilaterally, no focal motor deficits and no sensory deficits noted Motor Exam: general weakness Psych Mood & Affect: anxious Results Lab / Micro Data 06/02/23 09:26 06/02/23 09:26 Labs: Laboratory Results - last 24 hr 06/02/23 09:26: WBC 23.8 H, RBC 4.09 L, Hgb 11.9 L, Hct 36.8 L, MCV 90.0, MCH 29.1, MCHC 32.3, RDW Std Deviation 41.5, RDW Coeff of [place]aly 12.5, Plt Count 504 H, MPV 10.0, Immature Gran % (Auto) 0.600, Neut % (Auto) 84.8 H, Lymph % (Auto) 9.2 L, [place] % (Auto) 3.9, Eos % (Auto) 1.1, Baso % (Auto) 0.4, Absolute Neuts (auto) 20.2 H, Absolute Lymphs (auto) 2.18, Nucleated RBC % 0, PT 14.7, INR 1.2, APTT 29.1, Sodium 136, Potassium 3.6, Chloride 101, Carbon Dioxide 29.0, Anion Gap 6, BUN 15, Creatinine 0.87, Estim Creat Clear Calc 54.18, Est GFR (MDRD) Af Amer 84, Est GFR (MDRD) Non-Af 69, BUN/Creatinine Ratio 17.3, Glucose 187 H, Lactic Acid 1.6, Calcium 9.4, Total Bilirubin 0.70, AST 18, ALT 14, Alkaline Phosphatase 112, Total Protein 7.9, Albumin 3.0 L, Globulin 4.9 H, Albumin/Globulin Ratio 0.6 L ABG Data ABG results: ABG 06/02/23 09:53 Specimen Type ART Sample Site R Brach pH 7.25 L Bicarbonate Actual 26.9 H Total CO2 29 Base Excess 0 O2 Saturation 90 L O2 % 3.0 ABG pCO2 62.0 H ABG pO2 70 L O2 Delivery Device Not entered Vent Mode Not entered Rhythm Strip Rhythm Strip: Sinus Tach Rate: 120 Ectopy: None Imagaing Radiology Impression Chest X-Ray 06/02/23 09:11 IMPRESSION: Small right pleural effusion with right basilar infiltrate. Electronically Signed: Michael Gaxiola MD at 10:05 EST Reading Location ID and State: [address] [place] [address] , Service support , Assessment & Plan Assessment/Plan (1) Parapneumonic effusion: (2) Community acquired pneumonia of right lower lobe of lung: PLAN: Plan #Acute on chronic hypoxic respiratory failure due to community acquired pneumonia Admitted to ICU as patient now requiring BiPAP. Tachypneic and tachycardic. She had been seen in the ED about 2 days prior to admission was given antibiotics for pneumonia. She had however been too weak to take the antibiotics at home. Her shortness of breath had gradually worsened. WBC is elevated at 23.8. Will check urine for strep and Legionella. ABG done showed respiratory acidosis. Started on IV meropenem and IV vancomycin. Blood cultures ordered. Critical care consulted. Titrate oxygen to maintain saturation above 90%. Breathing treatments bronchodilators. #Acute on chronic hypoxic respiratory failure due to acute COPD exacerbation with hypoxia and hypercapnia Does have known COPD. Started on IV Solu-Medrol. Breathing treatments and bronchodilators. Try to wean off of BiPAP as tolerated. Titrate oxygen to maintain saturation above 90% critical care on board # Nicotine dependence: Counseled to quit. Nicotine patch 21 mg daily. DVT Prophylaxis: lovenox CODE STATUS: Full code Patient counseled extensively about different types of CODE STATUS including full code, DNR CCA and DNR CCA. Patient elects to be full code. Total [id number] time 17 minutes. Charges/Coding Visit Charges Inpatient E&M: 31353 Init Hosp L3 Procedures Hospitalists Procedures: 99795 Advncd Care Plan 30 Min
--- NOTE | 2023-06-02 10:55 | NURSING ---
DR AGUILERA FOR DR SWARTZ
[2023-06-02] MEDS: Meropenem 1 GM in 0.9% Normal Saline (100mL MB+) 100 ML IV ×2 (10:56→19:47)
[2023-06-02 10:58] LABS: Bacteria 1+ /hpf (None Seen); Hyaline Cast 0-5 SEEN /lpf (0-5); Mucous, Urine 2+ /hpf (<or=2+); Red Blood Cells-Urine 0-5 SEEN /hpf (0-5); Squamous Epithelial Cells - UA 0-5 SEEN /hpf (5-10)
[2023-06-02] MEDS: 0.9% Normal Saline (500mL Bag) 250 ML 999 ML IV (11:10)
[2023-06-02] MEDS: Ciprofloxacin 400 MG/200 ML BAG 200 MG IV (11:10)
--- NOTE | 2023-06-02 11:13 | NURSING ---
ICU [facility] ACUTE RESP FAILURE, PNEUMONIA, COPD EXAC
--- NOTE | 2023-06-02 12:33 | EX.PCM.CONCC ---
Assessment & Plan Assessment/Plan (1) Acute exacerbation of chronic obstructive pulmonary disease (COPD): PLAN: Plan RECOMMENDATIONS: 1. Continue AVAPS therapy and wean FiO2 for saturations at or above 90%. 2. Start scheduled bronchodilator therapy. 3. Initiate methylprednisone 40 mg every 6 hours. 4. Continue empiric broad-spectrum antimicrobials. 5. Await results of respiratory viral panel. 6. Check strep and urine Legionella antigens. IMPRESSIONS: 1. Acute and chronic respiratory failure with hypoxemia and hypercapnia secondary to COPD with exacerbation The patient has a known history of COPD and chronic hypoxemic respiratory failure with a baseline 3 L/min oxygen requirement. She is followed regularly by Dr. Jasmine Evangelista at [facility] pulmonary medicine. The patient appears to be in a state of exacerbation secondary to right lower lobe pneumonia. She did have evidence of acute CO2 retention in the emergency department and has been initiated on appropriate noninvasive positive pressure ventilatory support. Plan to continue current supportive measures including PAP therapy, scheduled aerosol treatments, IV steroids and antimicrobials. 2. Sepsis The patient presented to the hospital with sepsis due to probable right lower lobe pneumonia with acute sepsis related organ dysfunction as evidenced by no need for noninvasive positive pressure ventilatory support. The patient has been fluid resuscitated with appropriate response hemodynamically. Cultures are pending. Plan to continue empiric broad-spectrum antimicrobials. 3. History of seasonal allergic rhinitis/history of tobacco dependency, in remission Complicates care, management, recovery and prognosis. Continue home medications as indicated. TIME: 35 minutes of critical care time, independent of procedures, was spent addressing the patient's acute on chronic respiratory failure, sepsis, right lower lobe pneumonia, review of all data and collaboration with the care team. HPI Consult Data Date of Consult: 06/02/23 HPI Narrative Reason for Consultation: Acute on chronic respiratory failure HPI Narrative: The patient is a 68-year-old female, with a history as outlined below, who presented to the emergency department on June 02 via EMS with progressive shortness of breath and cough over the last several days. The patient had previously been evaluated in the emergency department yesterday, at which time, a CTA chest was obtained. There was no evidence for pulmonary embolism. However, there was evidence of a right lower lobe pneumonia. The patient had already been previously started on Levaquin. She was discharged from the emergency department with a prescription for Zithromax as well. Despite the aforementioned, the patient reported that her symptoms continue to worsen over the ensuing 24 hours. She has a known history of COPD and is currently followed by Dr. Jasmine Evangelista at [facility]. She has chronic hypoxemic respiratory failure with a baseline oxygen requirement of 3 L/min. The patient has a remote smoking history, having quit completely 10 years ago. Rapid COVID and influenza screens were negative yesterday. On presentation to the emergency department, the patient was documented to be febrile, tachycardic and tachypneic. Her presenting blood pressure was noted to be 79/34 mmHg. Initial laboratory evaluation revealed an elevated white blood cell count to 24,000. Arterial blood gas demonstrated a pH of 7.25 with a PCO2 of 62 and PO2 of 70. Chemistry profile was unrevealing. Lactate was within normal limits. The patient did receive supplemental IV fluid hydration in the emergency department, which subsequently led to improvement in her hemodynamic status. The patient was initiated on BiPAP, along with antimicrobials and aerosol treatments. She was subsequently admitted to the medical intensive care unit for further management. [facility] Medical History Anxiety Asthma Benign essential hypertension Benign essential tremor COPD (chronic obstructive pulmonary disease) Former tobacco use Migraines On home oxygen therapy Pneumonia due to COVID-19 virus Home Medications albuterol sulfate 90 mcg/actuation aerosol inhaler (Ventolin HFA) 2 puff inhalation Q4H PRN PRN Shortness Of Breath 08/28/15 [History Last Taken 11/30/22 10:00] montelukast 10 mg tablet 10 mg PO QHS ALLERGIES 02/25/18 [History Last Taken 11/29/22] fluticasone fur. 100 mcg-umeclid 62.5 mcg-vilant 25 mcg inhalat.powder (Trelegy Ellipta) 1 inh inhalation DAILY COPD 05/01/21 [History Last Taken 11/30/22] fluticasone propionate 50 mcg/actuation nasal spray,suspension 2 spray intranasal QHS ALLERGIES 05/01/21 [History Last Taken 11/28/22] levofloxacin 750 mg tablet 750 mg PO DAILY #7 tabs 12/03/22 [Rx Last Taken Unknown] prednisone 20 mg tablet 40 mg (2 x 20 mg) PO DAILY 7 days #14 tabs 12/03/22 [Rx Last Taken Unknown] oxycodone-acetaminophen 5 mg-325 mg tablet (Percocet) 1 tab PO Q6H PRN pain 4 days #14 tabs 06/01/23 [Rx Last Taken Unknown] Allergy/AdvReac Type Severity Reaction Status Date / Time cephalexin monohydrate Allergy Chest Verified 06/02/23 08:53 [From Keflex] tightness Surgical History H/O bilateral salpingectomy History of herniorrhaphy Hx of cholecystectomy Hx of tonsillectomy Social History adopted: Yes household members: family housing: house Smoking Status: Former smoker alcohol intake: never substance use type: does not use ROS ROS Narrative 10 systems were reviewed with pertinent positives as noted in the HPI above. Physical Exam Const alert and no apparent distress Constitutional Narrative: BiPAP mask in place. General Appearance: cooperative HEENT normocephalic and head/scalp atraumatic Eyes PERRL, EOMs intact bilaterally and conjunctivae normal Neck supple General: trachea midline Chest inspection of chest normal Resp Effort and Inspection: tachypneic Auscultation: rales, wheezes and diminished lung sounds diffuse Cardio S1 normal heart sound and S2 normal heart sound Rate: tachycardic GI normal to inspection, nondistended, normoactive bowel sounds Extremity no clubbing, cyanosis or edema Skin no rashes or lesions noted Neuro CN's II-XII intact bilaterally and no focal motor deficits Psych Mood & Affect: flat affect Lab / Micro Data 06/02/23 09:26 06/02/23 09:26 Labs: Laboratory Results - last 24 hr 06/02/23 09:26: WBC 23.8 H, RBC 4.09 L, Hgb 11.9 L, Hct 36.8 L, MCV 90.0, MCH 29.1, MCHC 32.3, RDW Std Deviation 41.5, RDW Coeff of Laly 12.5, Plt Count 504 H, MPV 10.0, Immature Gran % (Auto) 0.600, Neut % (Auto) 84.8 H, Lymph % (Auto) 9.2 L, [place] % (Auto) 3.9, Eos % (Auto) 1.1, Baso % (Auto) 0.4, Absolute Neuts (auto) 20.2 H, Absolute Lymphs (auto) 2.18, Nucleated RBC % 0, PT 14.7, INR 1.2, APTT 29.1, Sodium 136, Potassium 3.6, Chloride 101, Carbon Dioxide 29.0, Anion Gap 6, BUN 15, Creatinine 0.87, Estim Creat Clear Calc 54.18, Est GFR (MDRD) Af Amer 84, Est GFR (MDRD) Non-Af 69, BUN/Creatinine Ratio 17.3, Glucose 187 H, Lactic Acid 1.6, Calcium 9.4, Total Bilirubin 0.70, AST 18, ALT 14, Alkaline Phosphatase 112, Total Protein 7.9, Albumin 3.0 L, Globulin 4.9 H, Albumin/Globulin Ratio 0.6 L 06/02/23 10:34: Urine Color Yellow, Urine Clarity Cloudy, Urine pH 5.0, Ur Specific [place] 1.030, Urine Protein 100 H, Urine Glucose (UA) Normal, Urine Ketones 5 H, Urine Occult Blood 150 H, Urine Nitrite Negative, Urine Bilirubin Negative, Urine Urobilinogen Normal, Ur Leukocyte Esterase Negative, Urine RBC 0-5 SEEN, Urine WBC 0 SEEN, Ur Squamous Epith Cells 0-5 SEEN, Urine Bacteria 1+, Hyaline Casts 0-5 SEEN, Urine Mucus 2+ ABG Data ABG results: ABG 06/02/23 09:53 Specimen Type ART Sample Site R Brach pH 7.25 L Bicarbonate Actual 26.9 H Total CO2 29 Base Excess 0 O2 Saturation 90 L O2 % 3.0 ABG pCO2 62.0 H ABG pO2 70 L O2 Delivery Device Not entered Vent Mode Not entered Rhythm Strip Rhythm Strip: Sinus Tach Rate: 120 Ectopy: None Imagaing Radiology Impression Chest X-Ray 06/02/23 09:11 IMPRESSION: Small right pleural effusion with right basilar infiltrate. Electronically Signed: Michael Gaxiola MD at 10:05 EST , Charges/Coding Procedures Hospitalists Procedures: [id number] Critial Care 1st Hr
[2023-06-02] MEDS: Vancomycin HCl 1,750 MG in 0.9% Normal Saline (500mL Bag) 500 ML 250 MG IV (13:12)
--- NOTE | 2023-06-02 13:54 | PCM.RX.CS ---
Consult Antibiotic Management Pharmacy has been consulted to manage selected antiobiotic: Vancomycin Type of Intervention Type of Consult: New start Suspected Infection Suspected Infection: Pneumonia Prior Doses of Antibiotics Prior Doses of Antibiotics Received/Current Regimen: Vancomycin 1750 mg IV x 1 given 06/02/23 @ 1312 Labs Labs: Sodium 136 mmol/L (136-145) 06/02/23 09:26 Potassium 3.6 mmol/L (3.5-5.1) 06/02/23 09:26 Chloride 101 mmol/L (98-107) 06/02/23 09:26 Carbon Dioxide 29.0 mmol/L (21.0-32.0) 06/02/23 09:26 Anion Gap 6 (5-15) 06/02/23 09:26 BUN 15 mg/dL (7-18) 06/02/23 09:26 Creatinine 0.87 mg/dL (0.55-1.02) 06/02/23 09:26 Est GFR (MDRD) Af Amer 84 mL/min (>60) 06/02/23 09:26 Est GFR (MDRD) Non-Af 69 mL/min (>60) 06/02/23 09:26 BUN/Creatinine Ratio 17.3 RATIO (10-20) 06/02/23 09:26 Glucose 187 mg/dL (74-106) H 06/02/23 09:26 Dosing Weight Weight used for dosin kg Estimated Creatinine Clearance Estimated Creatinine Clearance: ~54 Goal Trough Goal Trough: 15-20 mcg/mL Pharmacy Plan for Drug Dosing Pharmacy Plan for Drug Dosing: Vancomycin 1750 mg IV loading dose, followed by 750 mg Q12H with a trough prior to the 4th dose. Pharmacy Service will continue to monitor and adjust dosing as required. Follow-Up Labs Follow-Up Labs: Trough: Vancomycin Date/Time Labs Ordered Labs to be done on [date and time ordered]: 06/04/23 @ 0030
--- NOTE | 2023-06-02 15:33 | CHAPLAIN ---
Type of Pastoral Visit _x__ Initial Visit ___ Follow-up Visit ___ On-call Visit ___ General Patient Visit ___ Spiritual Assessment ___ Family Conference ___ Bereavement ___ Rapid Response ___ Code Blue ___ Other (describe below) Pastoral Care Referral From _x__ Patient ___ Family ___ Nurse ___ Physician ___ Industrial Education Teacher ___ Child Welfare Consultant ___ Other (describe below) Sacrament/Intervention _x__ Active listening ___ Anointing ___ Druze ___ Bereavement ___ Communion ___ [place] exploration ___ ___ Life review _x__ Prayer ___ Reconciliation ___ Sacrament of Sick _x__ Supportive presence ___ Wedding ___ Other (describe below) Pastoral Comments patient is alert and able to answer questions but breathing is labored so this visit is kept brief; pt requests a prayer for her health; pt has family in the area for support; other than getting well the patient has no other concerns at this time; pt expresses gratitude for visit
[2023-06-02 15:59] LABS: M R Staph aureus DNA By PCR Negative (Negative); Probe Check PASS; Specimen Processing Control PASS
[2023-06-03] VITALS (37 sets, daily range): BP systolic 125–167; BP diastolic 57–96; PULSE 88–141; RESP 12–35; TEMP 36.4–38.2; O2SAT 23–100; BMI 28.3
[2023-06-03] MEDS: Vancomycin HCl 750 MG in 0.9% Normal Saline (250mL Bag) 250 ML 250 MG IV ×2 (00:06→13:19)
[2023-06-03 04:47] LABS: Absolute Lymphocyte Count 0.84 X10^3/uL (0.83-4.51); Basophil# 0.14 X10^3/uL; Basophil% 0.6 % (0-1); Hematocrit 33.4 % (37-47); Hemoglobin 10.6 g/dL (12.0-15.0); Lymphocyte # 0.84 X10^3/ul (0.83-4.51); Lymphocyte % 3.5 % (19-41); Mean Corp Hgb Conc 31.7 g/dL (32-36); Mean Corpuscular Hgb 28.8 pg (27.0-32.0); Mean Corpuscular Volume 90.8 fL (81-99); Mean Platelet Vol. 9.8 fl (6.2-12.0); Monocyte# 1.16 X10^3/uL; Monocyte% 4.8 % (0-10); NRBC Flagged by Analyzer 0 % (0-5); Neutrophil # 21.96 X10^3/uL (2.7-7.7); Neutrophil % 90.6 % (47-70); POSITIVE DIFFERENTIAL YES; POSITIVE MORPHOLOGY YES; Platelet Count 374 K/mm3 (150-450); RBC Distribution Width CV 12.6 % (11.6-14.6); RBC Distribution Width SD 41.9 fl (35.1-43.9); Red Blood Count 3.68 M/mm3 (4.2-5.4); White Blood Count 24.2 K/mm3 (4.4-11.0)
[2023-06-03] MEDS: Ipratropium/Albuterol Sulfate 3 ML AMPUL.NEB INHALATION ×4 (04:59→22:52)
[2023-06-03 05:00] LABS: Differential Indicated SCAN CRITERIA MET
[2023-06-03 05:10] LABS: Anion Gap 6 (5-15); BUN 18 mg/dL (7-18); BUN/Creat Ratio 26.6 RATIO (10-20); Calcium,Total 8.3 mg/dL (8.5-10.1); Chloride 110 mmol/L (98-107); Creatinine, Serum 0.68 mg/dL (0.55-1.02); EST Glomerular Filtration Rate 92 mL/min (>60); Est Glom Filt Rate - Afr Amer 112 mL/min (>60); Estimated Creatinine Clearance 47.14 ml/min; Glucose 147 mg/dL (74-106); Potassium 3.3 mmol/L (3.5-5.1); Sodium Level 142 mmol/L (136-145)
[2023-06-03] MEDS: Meropenem 1 GM in 0.9% Normal Saline (100mL MB+) 100 ML IV ×3 (05:40→20:25)
[2023-06-03 06:11] LABS: Differential Comment SCANNED
--- NOTE | 2023-06-03 07:06 | PN.CC_ITS ---
Assessment & Plan Assessment/Plan (1) Acute exacerbation of chronic obstructive pulmonary disease (COPD): PLAN: Plan RECOMMENDATIONS: 1. Continue AVAPS therapy and wean FiO2 for saturations at or above 90%. 2. Attempt to transition to heated high flow oxygen for patient comfort. 3. Add as needed aerosol treatments. Continue scheduled bronchodilator therapy. 4. Check COVID PCR. 5. Continue methylprednisone 40 mg every 6 hours. 6. Continue empiric broad-spectrum antimicrobials. 7. Obtain follow-up arterial blood gas. IMPRESSIONS: 1. Acute and chronic respiratory failure with hypoxemia and hypercapnia secondary to COPD with exacerbation The patient has a known history of COPD and chronic hypoxemic respiratory failur e with a baseline 3 L/min oxygen requirement. She is followed regularly by Dr. Jasmine Evangelista at [facility] pulmonary medicine. The patient appears to be in a state of exacerbation secondary to right lower lobe pneumonia. She did have evidence of acute CO2 retention in the emergency department and was initiated on appropriate noninvasive positive pressure ventilatory support. Plan to continue current supportive measures including AVAPS therapy, scheduled bronchodilator therapy, IV steroids and antibiotics. Will obtain follow-up arterial blood gas this morning. 2. Sepsis The patient presented to the hospital with sepsis due to probable right lower lobe pneumonia with acute sepsis related organ dysfunction as evidenced by no need for noninvasive positive pressure ventilatory support. The patient has been fluid resuscitated with appropriate response hemodynamically. Cultures are pending. Plan to continue empiric broad-spectrum antimicrobials. 3. History of seasonal allergic rhinitis/history of tobacco dependency, in remission Complicates care, management, recovery and prognosis. Continue home medications as indicated. TIME: 33 minutes of critical care time, independent of procedures, was spent addr essing the patient's acute on chronic respiratory failure, sepsis, right lower lobe pneumonia, review of all data and collaboration with the care team. Subjective Subjective The patient was seen and examined at the bedside this morning. Events from the last 24 hours have been reviewed. The patient is currently afebrile, hemodynamically stable and maintaining appropriate oxygen saturations on AVAPS with an FiO2 of 28%. The patient continues to report ongoing shortness of breath. Objective Data Objective Data The patient's most recent lab work, culture data and imaging studies have all been personally reviewed. Strep and urine Legionella antigens were negative. Respiratory viral panel was negative. Vital Signs: Vital Signs Temp Pulse Resp BP Pulse Ox O2 Del Method O2 Flow Rate 97.5 F L 108 H 22 H 135/62 H 100 Bi-pap 3 06/03/23 07:00 06/03/23 07:00 06/03/23 07:00 06/03/23 07:00 06/03/23 07:00 06/03/23 07:00 06/03/23 05:00 FiO2 28 06/03/23 07:00 Oxygen Flow Rate (L/min) 3 Oxygen Delivery Method Bi-pap Weight: 165 lb 5.547 oz Body Mass Index (BMI) 28.3 Intake & Output: Intake and Output for Last 24 Hours 06/01/23 06/02/23 06/03/23 23:59 23:59 23:59 Intake Total 3225 / 3225 265 / 265 Output Total 0 / 0 Balance 3225 / 3225 265 / 265 Lab / Micro Data Attestation: I reviewed the patient's lab results. 06/03/23 04:35 06/03/23 04:35 Labs: Laboratory Results - last 24 hr 06/02/23 09:26: WBC 23.8 H, RBC 4.09 L, Hgb 11.9 L, Hct 36.8 L, MCV 90.0, MCH 29.1, MCHC 32.3, RDW Std Deviation 41.5, RDW Coeff of Laly 12.5, Plt Count 504 H, MPV 10.0, Immature Gran % (Auto) 0.600, Neut % (Auto) 84.8 H, Lymph % (Auto) 9.2 L, [place] % (Auto) 3.9, Eos % (Auto) 1.1, Baso % (Auto) 0.4, Absolute Neuts (auto) 20.2 H, Absolute Lymphs (auto) 2.18, Nucleated RBC % 0, PT 14.7, INR 1.2, APTT 29.1, Sodium 136, Potassium 3.6, Chloride 101, Carbon Dioxide 29.0, Anion Gap 6, BUN 15, Creatinine 0.87, Estim Creat Clear Calc 54.18, Est GFR (MDRD) Af Amer 84, Est GFR (MDRD) Non-Af 69, BUN/Creatinine Ratio 17.3, Glucose 187 H, Lactic Acid 1.6, Calcium 9.4, Total Bilirubin 0.70, AST 18, ALT 14, Alkaline Phosphatase 112, Total Protein 7.9, Albumin 3.0 L, Globulin 4.9 H, Albumin/Globulin Ratio 0.6 L 06/02/23 10:34: Urine Color Yellow, Urine Clarity Cloudy, Urine pH 5.0, Ur Specific [place] 1.030, Urine Protein 100 H, Urine Glucose (UA) Normal, Urine Ketones 5 H, Urine Occult Blood 150 H, Urine Nitrite Negative, Urine Bilirubin Negative, Urine Urobilinogen Normal, Ur Leukocyte Esterase Negative, Urine RBC 0-5 SEEN, Urine WBC 0 SEEN, Ur Squamous Epith Cells 0-5 SEEN, Urine Bacteria 1+, Hyaline Casts 0-5 SEEN, Urine Mucus 2+ 06/02/23 13:10: MRSA (PCR) Negative 06/03/23 04:35: WBC 24.2 H, RBC 3.68 L, Hgb 10.6 L, Hct 33.4 L, MCV 90.8, MCH 28.8, MCHC 31.7 L, RDW Std Deviation 41.9, RDW Coeff of Laly 12.6, Plt Count 374, MPV 9.8, Immature Gran % (Auto) 0.500, Neut % (Auto) 90.6 H, Lymph % (Auto) 3.5 L, [place] % (Auto) 4.8, Eos % (Auto) 0.0, Baso % (Auto) 0.6, Absolute Neuts (auto) 22.0 H, Absolute Lymphs (auto) 0.84, Nucleated RBC % 0, Differential Comment SCANNED, Sodium 142, Potassium 3.3 L, Chloride 110 H, Carbon Dioxide 26.0, Anion Gap 6, BUN 18, Creatinine 0.68, Estim Creat Clear Calc 47.14, Est GFR (MDRD) Af Amer 112, Est GFR (MDRD) Non-Af 92, BUN/Creatinine Ratio 26.6 H, Glucose 147 H, Calcium 8.3 L Micro: Microbiology 06/02/23 10:34 Urine, Random Legionella Antigen - Final 06/02/23 10:34 Urine, Random Streptococcus pneumoniae Antigen (M - Final 06/02/23 11:22 Mucosa - Nasopharyngeal Respiratory Panel (PCR) - Final ABG Data ABG results: ABG 06/02/23 09:53 Specimen Type ART Sample Site R Brach pH 7.25 L Bicarbonate Actual 26.9 H Total CO2 29 Base Excess 0 O2 Saturation 90 L O2 % 3.0 ABG pCO2 62.0 H ABG pO2 70 L O2 Delivery Device Not entered Vent Mode Not entered Radiography Diagnostic Testing: Radiology Impression Chest X-Ray 06/02/23 09:11 IMPRESSION: Small right pleural effusion with right basilar infiltrate. Electronically Signed: Michael Gaxiola MD at 10:05 EST , Rhythm Strip Rhythm Strip: Sinus Tach Rate: 120 Ectopy: None Physical Exam Const alert and oriented x3 Constitutional Narrative: BiPAP mask in place. General Appearance: cooperative and ill appearing HEENT normocephalic and head/scalp atraumatic Teeth and Gingiva: poor dentition Eyes PERRL, EOMs intact bilaterally and conjunctivae normal Neck supple General: trachea midline Chest inspection of chest normal Resp Effort and Inspection: tachypneic Auscultation: rales and diminished lung sounds diffuse; Negative for rhonchi or wheezes Cardio S1 normal heart sound and S2 normal heart sound Rate: tachycardic GI normal to inspection, nondistended, normoactive bowel sounds Extremity no clubbing, cyanosis or edema Skin no rashes or lesions noted Neuro CN's II-XII intact bilaterally and no focal motor deficits Psych Mood & Affect: flat affect Charges/Coding Procedures Hospitalists Procedures: [id number] Critial Care 1st Hr
[2023-06-03 07:15] LABS: Base Excess 1 mmol/L (-2 to +2); Bicarbonate 26.2 mmol/L (22-26); Blood Gas Specimen Type ART; Mode NIV; O2 Delivery Device BiPAP; PEEP 10; PO2 73 mmHG (75-100); RR 12; SITE R Brach; SO2 94 % (95-99); Total Carbon Dioxide 28 mmol/L; pCO2 45.2 mmHg (35-45); pH 7.37 (7.35-7.45)
[2023-06-03] MEDS: Albuterol 2.5 MG/3 ML VIAL.NEB. INHALATION (07:39)
--- NOTE | 2023-06-03 10:18 | PN_ITS ---
Subjective Subjective Patient seen and examined. She was off BIPAP but was now on AirVo. She still feels short of breath and admits to a cough. She denied any chest pain, palpitations, dizziness, nausea, vomiting or any other symptoms. Review of systems is otherwise negative. Objective Data Objective Data Vital Signs: Vital Signs Temp Pulse Resp BP Pulse Ox O2 Del Method O2 Flow Rate 97.5 F L 111 H 22 H 135/62 H 100 Airvo 3 06/03/23 07:00 06/03/23 07:41 06/03/23 07:41 06/03/23 07:00 06/03/23 08:00 06/03/23 08:00 06/03/23 05:00 FiO2 35 06/03/23 08:00 Oxygen Flow Rate (L/min) 3 Oxygen Delivery Method Airvo Weight: 165 lb 5.547 oz Body Mass Index (BMI) 28.3 Intake & Output: Intake and Output for Last 24 Hours 06/01/23 06/02/23 06/03/23 23:59 23:59 23:59 Intake Total 3225 / 3225 265 / 265 Output Total 0 / 0 Balance 3225 / 3225 265 / 265 Lab / Micro Data 06/03/23 04:35 06/03/23 04:35 Labs: Laboratory Results - last 24 hr 06/02/23 10:34: Urine Color Yellow, Urine Clarity Cloudy, Urine pH 5.0, Ur Specific [place] 1.030, Urine Protein 100 H, Urine Glucose (UA) Normal, Urine Ketones 5 H, Urine Occult Blood 150 H, Urine Nitrite Negative, Urine Bilirubin Negative, Urine Urobilinogen Normal, Ur Leukocyte Esterase Negative, Urine RBC 0-5 SEEN, Urine WBC 0 SEEN, Ur Squamous Epith Cells 0-5 SEEN, Urine Bacteria 1+, Hyaline Casts 0-5 SEEN, Urine Mucus 2+ 06/02/23 13:10: MRSA (PCR) Negative 06/03/23 04:35: WBC 24.2 H, RBC 3.68 L, Hgb 10.6 L, Hct 33.4 L, MCV 90.8, MCH 28.8, MCHC 31.7 L, RDW Std Deviation 41.9, RDW Coeff of Laly 12.6, Plt Count 374, MPV 9.8, Immature Gran % (Auto) 0.500, Neut % (Auto) 90.6 H, Lymph % (Auto) 3.5 L, [place] % (Auto) 4.8, Eos % (Auto) 0.0, Baso % (Auto) 0.6, Absolute Neuts (auto) 22.0 H, Absolute Lymphs (auto) 0.84, Nucleated RBC % 0, Differential Comment SCANNED, Sodium 142, Potassium 3.3 L, Chloride 110 H, Carbon Dioxide 26.0, Anion Gap 6, BUN 18, Creatinine 0.68, Estim Creat Clear Calc 47.14, Est GFR (MDRD) Af Amer 112, Est GFR (MDRD) Non-Af 92, BUN/Creatinine Ratio 26.6 H, Glucose 147 H, Calcium 8.3 L Micro: Microbiology 06/03/23 09:15 Mucosa - Nose Coronavirus COVID-19 PCR - Final 06/02/23 10:34 Urine, Random Legionella Antigen - Final 06/02/23 10:34 Urine, Random Streptococcus pneumoniae Antigen (M - Final 06/02/23 11:22 Mucosa - Nasopharyngeal Respiratory Panel (PCR) - Final ABG Data ABG results: ABG 06/03/23 07:12 Specimen Type ART Sample Site R Brach pH 7.37 Bicarbonate Actual 26.2 H Total CO2 28 Base Excess 1 O2 Saturation 94 L O2 % 28.0 ABG pCO2 45.2 H ABG pO2 73 L Respiration Rate 12 O2 Delivery Device BiPAP Vent Mode NIV Tidal Volume 450.0 POC PEEP 10 Clinical Comments 24-12 Rhythm Strip Rhythm Strip: Sinus Tach Rate: 120 Ectopy: None Physical Exam Const alert Constitutional Narrative: frail, on AirVo HEENT normocephalic and head/scalp atraumatic Eyes PERRL and EOMs intact bilaterally Neck no lymphadenopathy and supple Lymph Lymphatic: no lymphadenopathy noted Resp Resp Narrative: Patient on Airvo, tachypneic, diminished breath sounds bibasilarly. bilateral wheezing, no crackles. Cardio regular rhythm, S1 normal heart sound, S2 normal heart sound and no murmurs Cardio Narrative: tachypneic GI normal to inspection, nondistended, normoactive bowel sounds, soft to palpation, non-tender and non-distended Extremity normal capillary refill, no clubbing, cyanosis or edema and no calf tenderness General Extremity: no tenderness to palpation of joints or extremities Skin General Skin Exam: no breakdown Neuro CN's II-XII intact bilaterally, no focal motor deficits and no sensory deficits noted Motor Exam: strength 5/5 throughout and general weakness Psych thought process normal Mood & Affect: anxious Assessment & Plan Assessment/Plan (1) Parapneumonic effusion: (2) Community acquired pneumonia of right lower lobe of lung: PLAN: Plan #Acute on chronic hypoxic respiratory failure due to community acquired pneumonia * now off BIPAP and on Airvo * on IV vancomycin and meropenem * still tachycardic and tachypneic. * wbc is 24.2. * critical care on board * titrate oxygen to maintain sats >90% * COVID and flu test negative. COVID PRC negative. * #Hypokalemia: K is 3.3. Will replace and trend. #Acute on chronic hypoxic respiratory failure due to acute COPD exacerbation with hypoxia and hypercapnia * Does have known COPD. * on IV Solu-Medrol. Breathing treatments and bronchodilators. * Now on AirVO. * Titrate oxygen to maintain saturation above 90% * critical care on board * # Nicotine dependence: Counseled to quit. Nicotine patch 21 mg daily. DVT Prophylaxis: lovenox CODE STATUS: Full code * Charges/Coding Visit Charges Inpatient E&M: 60531 Subs Hosp L3
--- NOTE | 2023-06-03 10:45 | CASEMGMT ---
JAMI GUERRERO Face to Face with patient for initial transition planning/care coordination assessment. RN CM introduced self and role at [facility]. Patient lying in bed, alert and oriented, at bedside. Patient willing to participate in assessment and is able to answer all questions appropriately. Care providers, pharmacy, and demographics verified. Patient wishes to discharge home, will monitor for needs at discharge pending course of treatment. Patient states she has no further needs or concerns at this time. CM to follow for discharge planning needs that may arise. PCP: [facility] Specialists: Jane Evangelista language assistant Preferred Pharmacy: [facility] Insurance: [facility]; [facility] Prescription Benefit: yes Living Will/HPOA: none LNOK: , daughter Living Arrangements: Patient lives with in a single story home with 3 steps and railing to enter the home. Patient is independent at home. Transportation: self, DME/HHC: Patient has shower chair, nebulizer, pulse ox, and home oxygen with portable concentrator and tank at 3lpm through [facility]. No previous HHC or SNF Disposition Plan: TBD, anticipate HHC vs outpatient pending course of treatment and progress with therapy. Evelin GOODMAN, RN, CM
[2023-06-03] MEDS: Enoxaparin 40 MG/0.4 ML Syringe SC (10:48)
[2023-06-03] MEDS: Acetaminophen 325 MG Tablet 650 MG PO ×2 (10:49→20:25)
[2023-06-03] MEDS: busPIRone 5 MG Tablet 10 MG PO (10:49)
--- NOTE | 2023-06-03 15:32 | CPS ---
pt asked for a nasal cannula. not comfortable on airvo
--- NOTE | 2023-06-03 18:27 | NURSING ---
in a-fib hr 150-120 ekg completed , asymptomatic Dr Evangelista notified
--- NOTE | 2023-06-03 19:07 | PN.HOSP_ITS ---
Hospitalist Note Notified by nursing staff that patient flipped into what appeared to be A-fib with RVR at around 6 PM. EKG was consistent with A-fib with RVR with rate of 145. On telemetry, it appears that patient's rate has consistently been around 150 and 160 for the past hour. Blood pressures remained stable. Patient is here for acute on chronic respiratory failure secondary to pneumonia. Has been requiring about the same level of oxygen all day between Airvo and high flow nasal cannula, no change in oxygen requirements since flipping in A-fib. Nash mejía seen at bedside. She appears chronically ill and is on high flow nasal cannula with fairly high oxygen requirements. She has poor breath sounds bilaterally, which the nurse states has been fairly consistent for her. Patient denies feeling any palpitations. She does not have any increased work of breathing at this time. She does not appear to be anxious. No prior history of A-fib noted on chart review or per the patient. Suspect this episode of A-fib is due to acute stress state from her pneumonia and respiratory failure. Will give IV Lopressor 5 mg x 1 dose now, monitor respons e. If she does not have significant improvement in rate or convert back to normal sinus rhythm after 30 minutes to an hour, told nurse notify us and we will plan to give a bolus of IV Cardizem and start a Cardizem drip at that time.
[2023-06-03] MEDS: Metoprolol Tartrate 5 MG/5 ML Vial IV (19:26)
[2023-06-03] MEDS: Montelukast 10 MG Tablet PO (20:25)
[2023-06-03] MEDS: Ondansetron 4 MG/2 ML Vial IV (21:06)
--- NOTE | 2023-06-03 21:11 | ECHOD_ITS ---
Reason For Study: Afib, Aflutter Procedure This was a 2D Doppler, Color Flow transthoracic echocardiogram. The study was technically difficult. Exam performed portable in ICU/CCU. Left Ventricle Normal LV size. Left ventricular systolic function is normal. The estimated ejection fraction is 65 %. Stage 1 diastolic dysfunction. No regional wall motion abnormalities noted. Right Ventricle Normal RV size. Normal systolic function. Atria Normal left atrium. Normal right atrium. Mitral Valve Normal mitral valve. Tricuspid Valve Normal tricuspid valve. Pulmonic Valve Normal pulmonic valve. Great Vessels Normal aortic root. Pericardium/Pleural No pericardial effusion. MMode/2D Measurements & Calculations LVIDd: 3.9 cm IVSd: 1.0 cm Ao root diam: 2.6 cm LVIDs: 2.4 cm LVPWd: 1.2 cm RVDd: 3.6 cm FS: 39.9 % LAV(MOD-bp): 12.8 ml LA A4 area: 8.1 cm2 LA dimension(2D): 3.0 cm LAV(MOD-bp) Indexed: 7.1 ml/m2 LAV(MOD-sp2): 12.9 ml LAV(MOD-sp4): 10.5 ml RA A4 area: 9.2 cm2 Time Measurements MV dec time: 0.22 sec Doppler Measurements & Calculations MV E max fred: 71.4 cm/sec Lat Peak E' Fred: 9.3 cm/sec Med Peak E' Fred: 5.5 cm/sec MV A max fred: 83.2 cm/sec E/E' lat: 7.7 E/E' med: 13.1 MV E/A: 0.86 MV dec slope: 319.0 cm/sec2 Ao V2 max: 131.7 cm/sec LV V1 max: 98.9 cm/sec Ao max P.9 mmHg LV V1 max P.9 mmHg Ao V2 mean: 98.7 cm/sec Ao mean P.2 mmHg Ao V2 VTI: 25.2 cm PA V2 max: 103.6 cm/sec ECHO/Echo Complete Interpretation Summary Normal LV size. Left ventricular systolic function is normal. The estimated ejection fraction is 65 %. Stage 1 diastolic dysfunction. Ordering Physician: Livan Garcia Referring Physician: Julio Draper Performed By: Any Hunter, RANDI, RVT
--- NOTE | 2023-06-03 21:12 | PCM.HOSP.N ---
Hospitalist Note Patient has developed atrial fibrillation with RVR. Patient was seen by the afternoon hospitalist and gave her a dose of IV metoprolol. Despite that, patient is persistently in atrial fibrillation with RVR. Will bolus her with IV diltiazem and start her on the diltiazem drip. Will change her anticoagulation to therapeutic enoxaparin. Check 2D echocardiogram but this appears that she does not have any echocardiogram in our system.
[2023-06-03] MEDS: dilTIAZem 25 MG/5 ML Vial 20 MG IV BOLUS (21:45)
[2023-06-03] MEDS: Diltiazem 125 MG in Dextrose 5%-Water (100mL Bag) 100 ML CONT INF (23:45)
[2023-06-04] VITALS (53 sets, daily range): BP systolic 105–156; BP diastolic 55–101; PULSE 73–119; RESP 12–28; TEMP 37.2–38; O2SAT 90–100; BMI 28.4
[2023-06-04] MEDS: Vancomycin Trough/Random Due 1 LAB MC (00:40)
[2023-06-04 01:14] LABS: Vancomycin, Trough Level 8.7 ug/mL (5.0-15.0)
[2023-06-04] MEDS: Vancomycin HCl 1,250 MG in 0.9% Normal Saline (250mL Bag) 250 ML 167 MG IV ×2 (01:36→13:26)
[2023-06-04] MEDS: Ipratropium/Albuterol Sulfate 3 ML AMPUL.NEB INHALATION ×6 (02:11→23:26)
--- NOTE | 2023-06-04 02:13 | PCM.RX.CS ---
Consult Antibiotic Management Pharmacy has been consulted to manage selected antiobiotic: Vancomycin Type of Intervention Type of Consult: Follow-up Labs Labs: Sodium 142 mmol/L (136-145) 06/03/23 04:35 Potassium 3.3 mmol/L (3.5-5.1) L 06/03/23 04:35 Chloride 110 mmol/L (98-107) H 06/03/23 04:35 Carbon Dioxide 26.0 mmol/L (21.0-32.0) 06/03/23 04:35 Anion Gap 6 (5-15) 06/03/23 04:35 BUN 18 mg/dL (7-18) 06/03/23 04:35 Creatinine 0.68 mg/dL (0.55-1.02) 06/03/23 04:35 Est GFR (MDRD) Af Amer 112 mL/min (>60) 06/03/23 04:35 Est GFR (MDRD) Non-Af 92 mL/min (>60) 06/03/23 04:35 BUN/Creatinine Ratio 26.6 RATIO (10-20) H 06/03/23 04:35 Glucose 147 mg/dL (74-106) H 06/03/23 04:35 Vancomycin Trough 8.7 ug/mL (5.0-15.0) 06/04/23 00:40 Microbiology Microbiology: Microbiology 06/03/23 09:15 Mucosa - Nose Coronavirus COVID-19 PCR - Final 06/02/23 10:34 Urine, Random Legionella Antigen - Final 06/02/23 10:34 Urine, Random Streptococcus pneumoniae Antigen (M - Final 06/02/23 11:22 Mucosa - Nasopharyngeal Respiratory Panel (PCR) - Final Pharmacy Plan for Drug Dosing Pharmacy Plan for Drug Dosing: Pharmacy Service will continue to monitor and adjust dosing as required. TROUGH 8.7 @ 11.5 HOURS. INCREASE TO 1250MG Q12H FOR GOAL TROUGH 15-20. FOLLOW UP TROUGH PRIOR TO 4TH DOSE Follow-Up Labs Follow-Up Labs: Trough: Vancomycin Date/Time Labs Ordered Labs to be done on [date and time ordered]: 06/05 @ 1300
--- NOTE | 2023-06-04 05:44 | PCM.PN.INT ---
Assessment & Plan Assessment/Plan (1) Acute exacerbation of chronic obstructive pulmonary disease (COPD): PLAN: Plan RECOMMENDATIONS: 1. Continue AVAPS therapy and/or Airvo for patient comfort. Wean FiO2 for saturations greater than 90%. 2. Continue scheduled BuSpar. 3. Continue scheduled bronchodilator therapy. 4. Continue methylprednisone 40 mg every 6 hours. 5. Continue empiric broad-spectrum antimicrobials. IMPRESSIONS: 1. Acute and chronic respiratory failure with hypoxemia and hypercapnia secondary to COPD with exacerbation The patient has a known history of COPD and chronic hypoxemic respiratory failure with a baseline 3 L/min oxygen requirement. She is followed regularly by Dr. Jasmine Evangelista at [facility] pulmonary medicine. The patient appears to be in a state of exacerbation secondary to right lower lobe pneumonia. She did have evidence of acute CO2 retention in the emergency department and was initiated on appropriate noninvasive positive pressure ventilatory support. Plan to continue current supportive measures including AVAPS therapy, scheduled bronchodilator therapy, IV steroids and antibiotics. 2. Sepsis The patient presented to the hospital with sepsis due to probable right lower lobe pneumonia with acute sepsis related organ dysfunction as evidenced by no need for noninvasive positive pressure ventilatory support. The patient has been fluid resuscitated with appropriate response hemodynamically. Cultures are pending. Plan to continue empiric broad-spectrum antimicrobials. 3. History of seasonal allergic rhinitis/history of tobacco dependency, in remission Complicates care, management, recovery and prognosis. Continue home medications as indicated. This note was generated with [employer] dictation software. It may contain incorrect words, spelling, and punctuation that were not noted in checking the note before signing. Subjective Subjective The patient was seen and examined at the bedside this morning. Events from the last 24 hours have been reviewed. The patient has been running low-grade fevers overnight but remains otherwise hemodynamically stable. The patient has been going back and forth between AVAPS and Airvo heated high flow. She is alert and appropriately interactive this morning. She does endorse ongoing shortness of breath and continued anxiety. Overnight, the patient did have a period of atrial fibrillation, which is medically managed with Cardizem. She has since been weaned off of the medication. Objective Data Objective Data The patient's most recent lab work, culture data and imaging studies have all been personally reviewed. Strep and urine Legionella antigens were negative. Respiratory viral panel was negative. COVID PCR was negative. Vital Signs: Vital Signs Temp Pulse Resp BP Pulse Ox O2 Del Method O2 Flow Rate 100.1 F H 86 20 H 139/58 H 99 Bi-pap 5 06/04/23 05:00 06/04/23 05:15 06/04/23 05:00 06/04/23 05:15 06/04/23 05:00 06/04/23 05:00 06/03/23 15:30 FiO2 28 06/04/23 04:00 Oxygen Flow Rate (L/min) 5 Oxygen Delivery Method Bi-pap Weight: 165 lb 12.602 oz Body Mass Index (BMI) 28.4 Intake & Output: Intake and Output for Last 24 Hours 06/02/23 06/03/23 06/04/23 23:59 23:59 23:59 Intake Total 3225 / 3225 1220 / 1221.25 451.25 / 451.25 Output Total 0 / 0 1999 Balance 3225 / 3225 -780 / -778.75 451.25 / 451.25 Lab / Micro Data Attestation: I reviewed the patient's lab results. 06/03/23 04:35 06/03/23 04:35 Labs: Laboratory Results - last 24 hr 06/03/23 04:35: Differential Comment SCANNED 06/04/23 00:40: Vancomycin Trough 8.7 Micro: Microbiology 06/03/23 09:15 Mucosa - Nose Coronavirus COVID-19 PCR - Final 06/02/23 10:34 Urine, Random Legionella Antigen - Final 06/02/23 10:34 Urine, Random Streptococcus pneumoniae Antigen (M - Final 06/02/23 11:22 Mucosa - Nasopharyngeal Respiratory Panel (PCR) - Final ABG Data ABG results: ABG 06/03/23 07:12 Specimen Type ART Sample Site R Brach pH 7.37 Bicarbonate Actual 26.2 H Total CO2 28 Base Excess 1 O2 Saturation 94 L O2 % 28.0 ABG pCO2 45.2 H ABG pO2 73 L Respiration Rate 12 O2 Delivery Device BiPAP Vent Mode NIV Tidal Volume 450.0 POC PEEP 10 Clinical Comments 24-12 Radiography Diagnostic Testing: Radiology Impression Chest X-Ray 06/02/23 09:11 IMPRESSION: Small right pleural effusion with right basilar infiltrate. Electronically Signed: Michael Gaxiola MD at 10:05 EST , Rhythm Strip Rhythm Strip: Sinus Tach Rate: 120 Ectopy: None Physical Exam Const alert and oriented x3 Constitutional Narrative: BiPAP mask in place. General Appearance: cooperative HEENT normocephalic and head/scalp atraumatic Teeth and Gingiva: poor dentition Eyes PERRL, EOMs intact bilaterally and conjunctivae normal Neck supple General: trachea midline Chest inspection of chest normal Resp Auscultation: diminished lung sounds diffuse; Negative for rales, rhonchi or wheezes Cardio regular rate, regular rhythm, S1 normal heart sound and S2 normal heart sound GI normal to inspection, nondistended, normoactive bowel sounds Extremity no clubbing, cyanosis or edema Skin no rashes or lesions noted Neuro CN's II-XII intact bilaterally and no focal motor deficits Psych Mood & Affect: anxious Charges/Coding Visit Charges Inpatient E&M: 15672 Subs Hosp L3
[2023-06-04] MEDS: Meropenem 1 GM in 0.9% Normal Saline (100mL MB+) 100 ML IV ×3 (05:56→20:35)
[2023-06-04] MEDS: Enoxaparin 80 MG/0.8 ML Syringe SC (05:56)
[2023-06-04 06:06] LABS: Absolute Lymphocyte Count 0.99 X10^3/uL (0.83-4.51); Absolute Neutrophil Count 27.6 X10^3/uL (2.0-7.7); Basophil# 0.08 X10^3/uL; Basophil% 0.3 % (0-1); Hematocrit 33.9 % (37-47); Hemoglobin 10.7 g/dL (12.0-15.0); Lymphocyte # 0.99 X10^3/ul (0.83-4.51); Lymphocyte % 3.3 % (19-41); Mean Corp Hgb Conc 31.6 g/dL (32-36); Mean Corpuscular Hgb 28.5 pg (27.0-32.0); Mean Corpuscular Volume 90.4 fL (81-99); Mean Platelet Vol. 9.9 fl (6.2-12.0); Monocyte# 1.19 X10^3/uL; Monocyte% 3.9 % (0-10); NRBC Flagged by Analyzer 0 % (0-5); Neutrophil # 27.64 X10^3/uL (2.7-7.7); Neutrophil % 91.4 % (47-70); POSITIVE COUNT YES; POSITIVE DIFFERENTIAL YES; Platelet Count 437 K/mm3 (150-450); RBC Distribution Width SD 43.4 fl (35.1-43.9); Red Blood Count 3.75 M/mm3 (4.2-5.4)
[2023-06-04 06:18] LABS: Differential Indicated SCAN CRITERIA MET; White Blood Count 30.2 K/mm3 (4.4-11.0)
[2023-06-04 06:20] LABS: Anion Gap 3 (5-15); BUN 29 mg/dL (7-18); BUN/Creat Ratio 50.7 RATIO (10-20); Calcium,Total 9.2 mg/dL (8.5-10.1); Chloride 110 mmol/L (98-107); Creatinine, Serum 0.57 mg/dL (0.55-1.02); EST Glomerular Filtration Rate 112 mL/min (>60); Est Glom Filt Rate - Afr Amer 136 mL/min (>60); Estimated Creatinine Clearance 47.14 ml/min; Glucose 143 mg/dL (74-106); Potassium 3.6 mmol/L (3.5-5.1); Sodium Level 145 mmol/L (136-145)
[2023-06-04] MEDS: busPIRone 5 MG Tablet 10 MG PO ×2 (09:37→20:35)
[2023-06-04 09:59] LABS: Differential Comment SCANNED
--- NOTE | 2023-06-04 10:01 | PN_ITS ---
Subjective Subjective Patient seen and examined. She was on BIPAP. She developed afib with RVR yesterday and had to be put on cardizem drip. She has been weaned off cardizem drip now. She feels weak. Review of systems is otherwise negative. Objective Data Objective Data Vital Signs: Vital Signs Temp Pulse Resp BP Pulse Ox O2 Del Method O2 Flow Rate 99.3 F H 92 26 H 149/81 H 100 Bi-pap 5 06/04/23 07:00 06/04/23 08:00 06/04/23 07:33 06/04/23 07:00 06/04/23 08:00 06/04/23 08:00 06/03/23 15:30 FiO2 28 06/04/23 08:00 Oxygen Flow Rate (L/min) 5 Oxygen Delivery Method Bi-pap Weight: 165 lb 12.602 oz Body Mass Index (BMI) 28.4 Intake & Output: Intake and Output for Last 24 Hours 06/02/23 06/03/23 06/04/23 23:59 23:59 23:59 Intake Total 3225 / 3225 1220 / 1221.25 451.25 / 451.25 Output Total 0 / 0 1999 / 1999 300 / 300 Balance 3225 / 3225 -780 / -778.75 151.25 / 151.25 Lab / Micro Data 06/04/23 05:55 06/04/23 05:55 Labs: Laboratory Results - last 24 hr 06/04/23 00:40: Vancomycin Trough 8.7 06/04/23 05:55: WBC 30.2 H*, RBC 3.75 L, Hgb 10.7 L, Hct 33.9 L, MCV 90.4, MCH 28.5, MCHC 31.6 L, RDW Std Deviation 43.4, RDW Coeff of Laly 13.0, Plt Count 437, MPV 9.9, Immature Gran % (Auto) 1.100 H, Neut % (Auto) 91.4 H, Lymph % (Auto) 3.3 L, [place] % (Auto) 3.9, Eos % (Auto) 0.0, Baso % (Auto) 0.3, Absolute Neuts (auto) 27.6 H, Absolute Lymphs (auto) 0.99, Nucleated RBC % 0, Differential Comment SCANNED, Diff Path Review November foll, Sodium 145, Potassium 3.6, Chloride 110 H, Carbon Dioxide 32.0, Anion Gap 3 L, BUN 29 H, Creatinine 0.57, Estim Creat Clear Calc 47.14, Est GFR (MDRD) Af Amer 136, Est GFR (MDRD) Non-Af 112, BUN/Creatinine Ratio 50.7 H, Glucose 143 H, Calcium 9.2 Micro: Microbiology 06/02/23 10:34 Urine, Catheterized Urine Culture - Final Culture exhibits no growth. 06/02/23 10:47 Blood Culture (Wb) - Right Hand Blood Culture - Preliminary No growth in 48 hours. 06/02/23 09:26 Blood Culture (Wb) - Left Hand Blood Culture - Preliminary No growth in 48 hours. 06/03/23 09:15 Mucosa - Nose Coronavirus COVID-19 PCR - Final 06/02/23 10:34 Urine, Random Legionella Antigen - Final 06/02/23 10:34 Urine, Random Streptococcus pneumoniae Antigen (M - Final 06/02/23 11:22 Mucosa - Nasopharyngeal Respiratory Panel (PCR) - Final Rhythm Strip Rhythm Strip: Sinus Tach Rate: 120 Ectopy: None Physical Exam Const alert Constitutional Narrative: frail. Now on BIPAP Orientation / Consciousness: lethargic HEENT normocephalic and head/scalp atraumatic Eyes PERRL and EOMs intact bilaterally Neck no lymphadenopathy and supple Lymph Lymphatic: no lymphadenopathy noted Resp Resp Narrative: diminished breath sounds bibasally, no wheezes. On BIPAP. Tachypneic Cardio regular rate, regular rhythm, S1 normal heart sound, S2 normal heart sound and no murmurs GI normal to inspection, nondistended, normoactive bowel sounds, soft to palpation, non-tender and non-distended Extremity normal capillary refill, no clubbing, cyanosis or edema and no calf tenderness General Extremity: no tenderness to palpation of joints or extremities Skin General Skin Exam: no breakdown Neuro CN's II-XII intact bilaterally, no focal motor deficits and no sensory deficits noted Motor Exam: strength 5/5 throughout and general weakness Psych thought process normal Mood & Affect: flat affect Assessment & Plan Assessment/Plan (1) Parapneumonic effusion: (2) Community acquired pneumonia of right lower lobe of lung: PLAN: Plan #Acute on chronic hypoxic respiratory failure due to community acquired pneumonia * back on BIPAP this morning * wbc is up to 30.2. The steroids may also be playing a role. * on IV vancomycin and meropenem * still tachycardic and tachypneic. * critical care on board * titrate oxygen to maintain sats >90% * COVID and flu test negative. COVID PRC negative. * #Hypokalemia: K is 3.3. Will replace and trend. #Acute on chronic hypoxic respiratory failure due to acute COPD exacerbation with hypoxia and hypercapnia * Does have known COPD. * on IV Solu-Medrol. Breathing treatments and bronchodilators. * on BIPAP this morning * Titrate oxygen to maintain saturation above 90% * critical care on board * #Afib with RVR * Went into A-fib with RVR overnight. Had to be placed on Cardizem drip. Now weaned off Cardizem drip and in normal sinus rhythm. Will start on metoprolol. start on eliquis for DVT prophylaxis. * # Nicotine dependence: Counseled to quit. Nicotine patch 21 mg daily. DVT Prophylaxis: place on eliquis due to new onset afib CODE STATUS: Full code * Charges/Coding Visit Charges Inpatient E&M: 41323 Subs Hosp L3
[2023-06-04] MEDS: Metoprolol Tartrate 25 MG Tablet PO ×2 (13:26→20:35)
[2023-06-04] MEDS: Ondansetron 4 MG/2 ML Vial IV (14:05)
[2023-06-04] MEDS: Oxycodone/Apap 5/325 Tablet PO (15:31)
[2023-06-04] MEDS: APIXABAN 5 MG TABLET PO (20:35)
[2023-06-04] MEDS: 0.9% Saline Lock 10 ML Syringe IV (20:36)
[2023-06-04] MEDS: Montelukast 10 MG Tablet PO (20:36)
[2023-06-05] VITALS (30 sets, daily range): BP systolic 100–170; BP diastolic 61–82; PULSE 70–93; RESP 12–27; TEMP 37.2–37.6; O2SAT 90–97
[2023-06-05] MEDS: Vancomycin HCl 1,250 MG in 0.9% Normal Saline (250mL Bag) 250 ML 167 MG IV ×2 (01:34→13:05)
[2023-06-05] MEDS: Ipratropium/Albuterol Sulfate 3 ML AMPUL.NEB INHALATION ×6 (02:46→22:12)
[2023-06-05] MEDS: Meropenem 1 GM in 0.9% Normal Saline (100mL MB+) 100 ML IV ×3 (06:06→22:25)
--- NOTE | 2023-06-05 06:39 | PN.CC_ITS ---
Assessment & Plan Assessment/Plan (1) Acute exacerbation of chronic obstructive pulmonary disease (COPD): PLAN: Plan RECOMMENDATIONS: 1. Continue Airvo for patient comfort. Wean FiO2 for saturations greater than 90%. 2. Continue scheduled BuSpar. 3. Continue scheduled bronchodilator therapy. 4. Continue methylprednisone 40 mg every 6 hours. 5. Continue empiric broad-spectrum antimicrobials. IMPRESSIONS: 1. Acute and chronic respiratory failure with hypoxemia and hypercapnia secondary to COPD with exacerbation The patient has a known history of COPD and chronic hypoxemic respiratory failure with a baseline 3 L/min oxygen requirement. She is followed regularly by Dr. Jasmine Evangelista at [facility] pulmonary medicine. The patient appears to be in a state of exacerbation secondary to right lower lobe pneumonia. She did have evidence of acute CO2 retention in the emergency department and was initiated on appropriate noninvasive positive pressure ventilatory support. Plan to continue current supportive measures including AVAPS therapy, scheduled bronchodilator therapy, IV steroids and antibiotics. 2. Sepsis The patient presented to the hospital with sepsis due to probable right lower lo be pneumonia with acute sepsis related organ dysfunction as evidenced by no need for noninvasive positive pressure ventilatory support. The patient has been fluid resuscitated with appropriate response hemodynamically. Cultures are pending. Plan to continue empiric broad-spectrum antimicrobials. 3. History of seasonal allergic rhinitis/history of tobacco dependency, in remission Complicates care, management, recovery and prognosis. Continue home medications as indicated. This note was generated with [employer] dictation software. It may contain incorrect words, spelling, and punctuation that were not noted in checking the note before signing. Subjective Subjective The patient was seen and examined at the bedside this morning. Events from the last 24 hours have been reviewed. The patient is currently afebrile, hemodynamically stable and maintaining appropriate oxygen saturations on Airvo heated high flow. The patient is currently sitting in her bedside recliner and does report interval improvement in her breathing quality. Objective Data Objective Data The patient's most recent lab work, culture data and imaging studies have all been personally reviewed. Strep and urine Legionella antigens were negative. Respiratory viral panel was negative. COVID PCR was negative. Vital Signs: Vital Signs Temp Pulse Resp BP Pulse Ox O2 Del Method O2 Flow Rate 99.3 F H 81 24 H 154/72 H 97 Airvo 8 06/05/23 04:00 06/05/23 04:00 06/05/23 04:00 06/05/23 04:00 06/05/23 04:00 06/05/23 04:00 06/04/23 14:40 FiO2 34 06/05/23 02:47 Oxygen Flow Rate (L/min) 8 Oxygen Delivery Method Airvo Weight: 165 lb 12.602 oz Body Mass Index (BMI) 28.4 Intake & Output: Intake and Output for Last 24 Hours 06/03/23 06/04/23 06/05/23 23:59 23:59 23:59 Intake Total 1220 / 1221.25 1516.25 / 1636.25 755 / 755 Output Total 1999 / 1999 900 / 1100 500 / 500 Balance -780 / -778.75 616.25 / 536.25 255 / 255 Lab / Micro Data Attestation: I reviewed the patient's lab results. 06/04/23 05:55 06/04/23 05:55 Labs: Laboratory Results - last 24 hr 06/04/23 05:55: Differential Comment SCANNED, Diff Path Review November Micro: Microbiology 06/02/23 10:34 Urine, Catheterized Urine Culture - Final Culture exhibits no growth. 06/02/23 10:47 Blood Culture (Wb) - Right Hand Blood Culture - Preliminary No growth in 48 hours. 06/02/23 09:26 Blood Culture (Wb) - Left Hand Blood Culture - Preliminary No growth in 48 hours. 06/03/23 09:15 Mucosa - Nose Coronavirus COVID-19 PCR - Final 06/02/23 10:34 Urine, Random Legionella Antigen - Final 06/02/23 10:34 Urine, Random Streptococcus pneumoniae Antigen (M - Final 06/02/23 11:22 Mucosa - Nasopharyngeal Respiratory Panel (PCR) - Final ABG Data ABG results: ABG 06/03/23 07:12 Specimen Type ART Sample Site R Brach pH 7.37 Bicarbonate Actual 26.2 H Total CO2 28 Base Excess 1 O2 Saturation 94 L O2 % 28.0 ABG pCO2 45.2 H ABG pO2 73 L Respiration Rate 12 O2 Delivery Device BiPAP Vent Mode NIV Tidal Volume 450.0 POC PEEP 10 Clinical Comments 24-12 Radiography Diagnostic Testing: Radiology Impression Echocardiogram 06/03/23 21:11 Interpretation Summary Normal LV size. Left ventricular systolic function is normal. The estimated ejection fraction is 65 %. Stage 1 diastolic dysfunction. Ordering Physician: Livan Garcia Referring Physician: Julio Draper Performed By: Any Hunter, RANDI, RVT Rhythm Strip Rhythm Strip: Sinus Tach Rate: 120 Ectopy: None Physical Exam Const alert and oriented x3 Constitutional Narrative: Sitting in bedside recliner. General Appearance: cooperative HEENT normocephalic and head/scalp atraumatic Teeth and Gingiva: poor dentition Eyes PERRL, EOMs intact bilaterally and conjunctivae normal Neck supple General: trachea midline Chest inspection of chest normal Resp Resp Narrative: Slowly improving air movement throughout all lung zepeda Auscultation: diminished lung sounds diffuse; Negative for rales, rhonchi or wheezes Cardio regular rate, regular rhythm, S1 normal heart sound and S2 normal heart sound GI normal to inspection, nondistended, normoactive bowel sounds Extremity no clubbing, cyanosis or edema Skin no rashes or lesions noted Neuro CN's II-XII intact bilaterally, moves all extremities and no focal motor deficits Psych cooperative and affect normal Charges/Coding Visit Charges Inpatient E&M: 51810 Subs Hosp L2
[2023-06-05] MEDS: APIXABAN 5 MG TABLET PO ×2 (08:46→22:25)
[2023-06-05] MEDS: busPIRone 5 MG Tablet 10 MG PO ×2 (08:48→22:25)
[2023-06-05] MEDS: Metoprolol Tartrate 25 MG Tablet PO ×2 (08:48→22:25)
[2023-06-05] MEDS: Oxycodone/Apap 5/325 Tablet PO (09:38)
[2023-06-05] MEDS: Vancomycin Trough/Random Due 1 LAB MC (11:00)
[2023-06-05 12:09] LABS: Vancomycin, Trough Level 17.1 ug/mL (5.0-15.0)
--- NOTE | 2023-06-05 12:43 | PCM.PROGNOTE ---
Subjective Subjective Patient seen and examined. She says she feels a bit better today. She is on AirVO still. She denies any chest pain, palpitations, dizziness, nausea, vomiting or any other symptoms. Review of systems is otherwise negative. Objective Data Objective Data Vital Signs: Vital Signs Temp Pulse Resp BP Pulse Ox O2 Del Method O2 Flow Rate 99.2 F H 71 20 H 170/66 H 94 Bi-pap 60 06/05/23 10:00 06/05/23 10:40 06/05/23 10:40 06/05/23 10:00 06/05/23 10:40 06/05/23 10:00 06/05/23 07:04 FiO2 28 06/05/23 10:40 Oxygen Flow Rate (L/min) 60 Oxygen Delivery Method Bi-pap Weight: 165 lb 12.602 oz Body Mass Index (BMI) 28.4 Intake & Output: Intake and Output for Last 24 Hours 06/03/23 06/04/23 06/05/23 23:59 23:59 23:59 Intake Total 1220 / 1221.25 1516.25 / 1636.25 1115 / 1115 Output Total 1999 / 1999 900 / 1100 850 / 850 Balance -780 / -778.75 616.25 / 536.25 265 / 265 Lab / Micro Data 06/04/23 05:55 06/04/23 05:55 Labs: Laboratory Results - last 24 hr 06/05/23 11:30: Vancomycin Trough 17.1 H Micro: Microbiology 06/02/23 10:34 Urine, Catheterized Urine Culture - Final Culture exhibits no growth. 06/02/23 10:47 Blood Culture (Wb) - Right Hand Blood Culture - Preliminary No growth in 48 hours. 06/02/23 09:26 Blood Culture (Wb) - Left Hand Blood Culture - Preliminary No growth in 48 hours. 06/03/23 09:15 Mucosa - Nose Coronavirus COVID-19 PCR - Final 06/02/23 10:34 Urine, Random Legionella Antigen - Final 06/02/23 10:34 Urine, Random Streptococcus pneumoniae Antigen (M - Final 06/02/23 11:22 Mucosa - Nasopharyngeal Respiratory Panel (PCR) - Final Rhythm Strip Rhythm Strip: Sinus Tach Rate: 120 Ectopy: None Physical Exam Const alert Constitutional Narrative: frail.on AirVo General Appearance: cooperative HEENT normocephalic and head/scalp atraumatic Mouth: dry mucous membranes Eyes PERRL and EOMs intact bilaterally Neck no lymphadenopathy and supple Lymph Lymphatic: no lymphadenopathy noted Resp Resp Narrative: diminished breath sounds bibasally, no wheezes. on AirVo Cardio regular rate, regular rhythm, S1 normal heart sound, S2 normal heart sound and no murmurs GI normal to inspection, nondistended, normoactive bowel sounds, soft to palpation, non-tender and non-distended Extremity normal capillary refill, no clubbing, cyanosis or edema and no calf tenderness General Extremity: no tenderness to palpation of joints or extremities Skin General Skin Exam: no breakdown Neuro CN's II-XII intact bilaterally, no focal motor deficits and no sensory deficits noted Motor Exam: strength 5/5 throughout and general weakness Psych thought process normal Mood & Affect: anxious Assessment & Plan Assessment/Plan (1) Parapneumonic effusion: (2) Community acquired pneumonia of right lower lobe of lung: PLAN: Plan #Acute on chronic hypoxic respiratory failure due to community acquired pneumonia now on AirVo labs are pending. on meropenem COVID and flu negative titrate oxygen to maintain sats >90% breathing treatment with bronchodilators Blood cultures negative after 48 hours. Urine for strep and Legionella negative and urine culture also negative. COVID PCR was negative. In positive fluid balance by 3326mls. Will diurese with Lasix to help with breathing. #Hypokalemia: labs pending today. Will replace as needed and monitor. #Acute on chronic hypoxic respiratory failure due to acute COPD exacerbation with hypoxia and hypercapnia Does have known COPD. on IV Solu-Medrol. Breathing treatments and bronchodilators. on AirVo Titrate oxygen to maintain saturation above 90% critical care on board #Afib with RVR went into afib with RVR yesterday off cardizem drip. Now on meotprolol on eliquis for DVT prophylaxis 2D echo showed EF of 65% with stage I diastolic dysfunction and no regional wall motion abnormalities noted. Valves were normal. # Nicotine dependence: Counseled to quit. Nicotine patch 21 mg daily. DVT Prophylaxis: on eliquis CODE STATUS: Full code Charges/Coding Visit Charges Inpatient E&M: 05246 Subs Hosp L3
[2023-06-05 13:12] LABS: Absolute Lymphocyte Count 1.12 X10^3/uL (0.83-4.51); Absolute Neutrophil Count 28.8 X10^3/uL (2.0-7.7); Hematocrit 35.3 % (37-47); Hemoglobin 11.1 g/dL (12.0-15.0); Lymphocyte # 1.12 X10^3/ul (0.83-4.51); Lymphocyte % 3.5 % (19-41); Mean Corp Hgb Conc 31.4 g/dL (32-36); Mean Corpuscular Hgb 28.5 pg (27.0-32.0); Mean Corpuscular Volume 90.7 fL (81-99); Monocyte# 1.04 X10^3/uL; Monocyte% 3.3 % (0-10); NRBC Flagged by Analyzer 0 % (0-5); Neutrophil # 28.78 X10^3/uL (2.7-7.7); Neutrophil % 91.2 % (47-70); POSITIVE COUNT YES; POSITIVE DIFFERENTIAL YES; POSITIVE MORPHOLOGY YES; Platelet Count 440 K/mm3 (150-450); RBC Distribution Width SD 43.3 fl (35.1-43.9); Red Blood Count 3.89 M/mm3 (4.2-5.4)
[2023-06-05 13:21] LABS: White Blood Count 31.6 K/mm3 (4.4-11.0)
[2023-06-05 13:22] LABS: Differential Indicated SCAN CRITERIA MET
[2023-06-05] MEDS: Furosemide 40 MG/4 ML Vial IV ×2 (13:33→18:18)
[2023-06-05 13:46] LABS: Anion Gap 0 (5-15); BUN 37 mg/dL (7-18); BUN/Creat Ratio 58.6 RATIO (10-20); Calcium,Total 9.5 mg/dL (8.5-10.1); Chloride 106 mmol/L (98-107); Creatinine, Serum 0.63 mg/dL (0.55-1.02); Differential Comment SCANNED; EST Glomerular Filtration Rate 100 mL/min (>60); Est Glom Filt Rate - Afr Amer 121 mL/min (>60); Estimated Creatinine Clearance 47.14 ml/min; Glucose 177 mg/dL (74-106); Sodium Level 142 mmol/L (136-145)
--- NOTE | 2023-06-05 13:50 | PCM.RX.CS ---
Consult Antibiotic Management Pharmacy has been consulted to manage selected antiobiotic: Vancomycin Type of Intervention Type of Consult: Follow-up Suspected Infection Suspected Infection: Pneumonia Prior Doses of Antibiotics Prior Doses of Antibiotics Received/Current Regimen: Currently on 1250mg iv q12h. Labs Labs: Sodium 142 mmol/L (136-145) 06/05/23 12:55 Potassium 4.0 mmol/L (3.5-5.1) 06/05/23 12:55 Chloride 106 mmol/L (98-107) 06/05/23 12:55 Carbon Dioxide 36.0 mmol/L (21.0-32.0) H 06/05/23 12:55 Anion Gap 0 (5-15) L 06/05/23 12:55 BUN 37 mg/dL (7-18) H 06/05/23 12:55 Creatinine 0.63 mg/dL (0.55-1.02) 06/05/23 12:55 Est GFR (MDRD) Af Amer 121 mL/min (>60) 06/05/23 12:55 Est GFR (MDRD) Non-Af 100 mL/min (>60) 06/05/23 12:55 BUN/Creatinine Ratio 58.6 RATIO (10-20) H 06/05/23 12:55 Glucose 177 mg/dL (74-106) H 06/05/23 12:55 Vancomycin Trough 17.1 ug/mL (5.0-15.0) H 06/05/23 11:30 Microbiology Microbiology: Microbiology 06/02/23 10:34 Urine, Catheterized Urine Culture - Final Culture exhibits no growth. 06/02/23 10:47 Blood Culture (Wb) - Right Hand Blood Culture - Preliminary No growth in 48 hours. 06/02/23 09:26 Blood Culture (Wb) - Left Hand Blood Culture - Preliminary No growth in 48 hours. 06/03/23 09:15 Mucosa - Nose Coronavirus COVID-19 PCR - Final 06/02/23 10:34 Urine, Random Legionella Antigen - Final 06/02/23 10:34 Urine, Random Streptococcus pneumoniae Antigen (M - Final 06/02/23 11:22 Mucosa - Nasopharyngeal Respiratory Panel (PCR) - Final Dosing Weight Weight used for dosin.2 kg Estimated Creatinine Clearance Estimated Creatinine Clearance: 47ml/min Goal Trough Goal Trough: 15-20 mcg/mL Pharmacy Plan for Drug Dosing Pharmacy Plan for Drug Dosing: Trough today 17.6 ~10 hrs post dose. Being in desired range, recommend continuing same dose with trough before another 4th dose. Pharmacy Service will continue to monitor and adjust dosing as required. Follow-Up Labs Follow-Up Labs: Trough: Vancomycin (12.5.23 @0030 before 0100 dose)
[2023-06-05] MEDS: Montelukast 10 MG Tablet PO (22:25)
[2023-06-06] VITALS (14 sets, daily range): BP systolic 130–159; BP diastolic 41–83; PULSE 72–90; RESP 18–25; TEMP 37.4–37.9; O2SAT 90–97
[2023-06-06] MEDS: Vancomycin HCl 1,250 MG in 0.9% Normal Saline (250mL Bag) 250 ML 167 MG IV ×2 (02:04→17:29)
[2023-06-06 03:44] LABS: Absolute Lymphocyte Count 1.21 X10^3/uL (0.83-4.51); Anion Gap 2 (5-15); BUN 34 mg/dL (7-18); BUN/Creat Ratio 56.1 RATIO (10-20); Basophil# 0.12 X10^3/uL; Basophil% 0.5 % (0-1); Chloride 101 mmol/L (98-107); Creatinine, Serum 0.61 mg/dL (0.55-1.02); EST Glomerular Filtration Rate 105 mL/min (>60); Eosinophil# 0.06 X10^3/uL; Eosinophils% 0.2 % (0-5); Est Glom Filt Rate - Afr Amer 127 mL/min (>60); Estimated Creatinine Clearance 47.14 ml/min; Glucose 134 mg/dL (74-106); Hematocrit 36.2 % (37-47); Hemoglobin 11.2 g/dL (12.0-15.0); Lymphocyte # 1.21 X10^3/ul (0.83-4.51); Lymphocyte % 4.7 % (19-41); Mean Corp Hgb Conc 30.9 g/dL (32-36); Mean Corpuscular Hgb 28.1 pg (27.0-32.0); Mean Platelet Vol. 10.2 fl (6.2-12.0); Monocyte# 1.03 X10^3/uL; NRBC Flagged by Analyzer 0 % (0-5); Neutrophil # 23.04 X10^3/uL (2.7-7.7); Neutrophil % 88.9 % (47-70); POSITIVE DIFFERENTIAL YES; Platelet Count 437 K/mm3 (150-450); Potassium 3.6 mmol/L (3.5-5.1); RBC Distribution Width CV 12.7 % (11.6-14.6); RBC Distribution Width SD 42.5 fl (35.1-43.9); Red Blood Count 3.98 M/mm3 (4.2-5.4); Sodium Level 142 mmol/L (136-145); White Blood Count 25.9 K/mm3 (4.4-11.0)
[2023-06-06] MEDS: Ipratropium/Albuterol Sulfate 3 ML AMPUL.NEB INHALATION ×6 (03:45→22:41)
[2023-06-06 03:46] LABS: Differential Indicated SCAN CRITERIA MET
[2023-06-06 04:31] LABS: Differential Comment SCANNED
[2023-06-06] MEDS: 0.9% Saline Lock 10 ML Syringe IV (05:45)
[2023-06-06] MEDS: Meropenem 1 GM in 0.9% Normal Saline (100mL MB+) 100 ML IV ×3 (05:45→21:13)
[2023-06-06] MEDS: busPIRone 5 MG Tablet 10 MG PO ×2 (08:32→21:14)
[2023-06-06] MEDS: Furosemide 40 MG/4 ML Vial IV ×2 (08:33→17:30)
[2023-06-06] MEDS: APIXABAN 5 MG TABLET PO ×2 (08:33→21:13)
[2023-06-06] MEDS: Metoprolol Tartrate 25 MG Tablet PO ×2 (08:34→21:13)
--- NOTE | 2023-06-06 11:41 | PN.CC_ITS ---
Assessment & Plan Assessment/Plan (1) COPD with acute exacerbation: PLAN: Plan Assessment * Acute on chronic hypoxic respiratory failure with hypercapnia (ABG on admission showed pH of 7.25 and PCO2 of 60) * COPD exacerbation * Sepsis secondary to right lower lobe pneumonia * History of tobacco use (~[id number] )quit 10 years ago * Abnormal chest CT * A fib Plan -Patient remains short of breath with exertion she is on 7 L via nasal cannula. She is usually on 3 L nasal cannula. -Continue NIPPV support at night. Discussed with the patient importance of NIPPV use given her COPD exacerbation and CO2 retention. -Wean O2 as tolerated -Continue Solu-Medrol and scheduled DuoNebs -Viral panel is negative. Legionella urine antigen is negative. MRSA swab is negative. DC vancomycin continue Merrem -Discussed chest CT scan findings. We discussed that she will need repeat CT scan in 6 to 8 weeks to ensure resolution. -Patient quit smoking 10 years ago. Encouraged to continue smoking cessation. -PT OT -DVT prophylaxis pt is on home eliquis Subjective Subjective She continues to have shortness of breath she is down to 7 L. Encouraged to use her BiPAP at night. Objective Data Objective Data Vital Signs: Vital Signs Temp Pulse Resp BP Pulse Ox O2 Del Method O2 Flow Rate 37.6 C H 79 22 H 159/83 H 94 Bi-pap 60 06/06/23 02:00 06/06/23 11:30 06/06/23 11:30 06/06/23 08:34 06/06/23 11:30 06/06/23 02:00 06/06/23 10:18 FiO2 32 06/06/23 11:30 Oxygen Flow Rate (L/min) 60 Oxygen Delivery Method Bi-pap Weight: 75.2 kg Body Mass Index (BMI) 28.4 Intake & Output: Intake and Output for Last 24 Hours 06/04/23 06/05/23 06/06/23 23:59 23:59 23:59 Intake Total 1516.25 / 1636.25 2009 515 / 515 Output Total 900 / 1100 3900 / 3900 350 / 350 Balance 616.25 / 536.25 -1890 / -1890 165 / 165 Lab / Micro Data 06/06/23 03:20 06/06/23 03:20 Labs: Laboratory Results - last 24 hr 06/05/23 11:30: Vancomycin Trough 17.1 H 06/05/23 12:55: WBC 31.6 H*, RBC 3.89 L, Hgb 11.1 L, Hct 35.3 L, MCV 90.7, MCH 28.5, MCHC 31.4 L, RDW Std Deviation 43.3, RDW Coeff of Laly 13.0, Plt Count 440, MPV 10.0, Immature Gran % (Auto) 2.000 H, Neut % (Auto) 91.2 H, Lymph % (Auto) 3.5 L, [place] % (Auto) 3.3, Eos % (Auto) 0.0, Baso % (Auto) 0.0, Absolute Neuts (auto) 28.8 H, Absolute Lymphs (auto) 1.12, Nucleated RBC % 0, Differential Comment SCANNED, Diff Path Review May foll, Sodium 142, Potassium 4.0, Chloride 106, Carbon Dioxide 36.0 H, Anion Gap 0 L, BUN 37 H, Creatinine 0.63, Estim Creat Clear Calc 47.14, Est GFR (MDRD) Af Amer 121, Est GFR (MDRD) Non-Af 100, BUN/Creatinine Ratio 58.6 H, Glucose 177 H, Calcium 9.5 06/06/23 03:20: WBC 25.9 H, RBC 3.98 L, Hgb 11.2 L, Hct 36.2 L, MCV 91.0, MCH 2 8.1, MCHC 30.9 L, RDW Std Deviation 42.5, RDW Coeff of [place] 12.7, Plt Count 437, MPV 10.2, Immature Gran % (Auto) 1.700 H, Neut % (Auto) 88.9 H, Lymph % (Auto) 4.7 L, [place] % (Auto) 4.0, Eos % (Auto) 0.2, Baso % (Auto) 0.5, Absolute Neuts (auto) 23.0 H, Absolute Lymphs (auto) 1.21, Nucleated RBC % 0, Differential Comment SCANNED, Sodium 142, Potassium 3.6, Chloride 101, Carbon Dioxide 39.0 H, Anion Gap 2 L, BUN 34 H, Creatinine 0.61, Estim Creat Clear Calc 47.14, Est GFR (MDRD) Af Amer 127, Est GFR (MDRD) Non-Af 105, BUN/Creatinine Ratio 56.1 H, Glucose 134 H, Calcium 9.0 Micro: Microbiology 06/02/23 10:34 Urine, Catheterized Urine Culture - Final Culture exhibits no growth. 06/02/23 10:47 Blood Culture (Wb) - Right Hand Blood Culture - Preliminary No growth in 48 hours. 06/02/23 09:26 Blood Culture (Wb) - Left Hand Blood Culture - Preliminary No growth in 48 hours. 06/03/23 09:15 Mucosa - Nose Coronavirus COVID-19 PCR - Final 06/02/23 10:34 Urine, Random Legionella Antigen - Final 06/02/23 10:34 Urine, Random Streptococcus pneumoniae Antigen (M - Final 06/02/23 11:22 Mucosa - Nasopharyngeal Respiratory Panel (PCR) - Final Rhythm Strip Rhythm Strip: Sinus Tach Rate: 120 Ectopy: None Physical Exam Narrative General alert oriented in no acute distress HEENT. Normocephalic atraumatic, pupils equal and reactive Respiratory reduced air entry bilaterally, no wheezing Cardiac S1-S2, regular rate and rhythm GI abdomen soft and nontender MSK no lower extremity edema Skin no rashes Neuro moves all extremities, no dysarthria, no facial droop Charges/Coding Visit Charges Inpatient E&M: 73995 Subs Hosp L3
[2023-06-06] MEDS: Ondansetron 4 MG/2 ML Vial IV (12:10)
--- NOTE | 2023-06-06 12:15 | PN_ITS ---
Subjective Subjective Patient seen and examined. She had no active complaints. She is still on AirVo. She is still coughing, though it is not productive. Review of systems is otherwise negative. Objective Data Objective Data Vital Signs: Vital Signs Temp Pulse Resp BP Pulse Ox O2 Del Method O2 Flow Rate 99.7 F H 79 22 H 159/83 H 94 Bi-pap 60 06/06/23 02:00 06/06/23 11:30 06/06/23 11:30 06/06/23 08:34 06/06/23 11:30 06/06/23 02:00 06/06/23 10:18 FiO2 32 06/06/23 11:30 Oxygen Flow Rate (L/min) 60 Oxygen Delivery Method Bi-pap Weight: 165 lb 12.602 oz Body Mass Index (BMI) 28.4 Intake & Output: Intake and Output for Last 24 Hours 06/04/23 06/05/23 06/06/23 23:59 23:59 23:59 Intake Total 1516.25 / 1636.25 2009 515 / 515 Output Total 900 / 1100 3900 / 3900 350 / 350 Balance 616.25 / 536.25 -1890 / -1890 165 / 165 Lab / Micro Data 06/06/23 03:20 06/06/23 03:20 Labs: Laboratory Results - last 24 hr 06/05/23 12:55: WBC 31.6 H*, RBC 3.89 L, Hgb 11.1 L, Hct 35.3 L, MCV 90.7, MCH 28.5, MCHC 31.4 L, RDW Std Deviation 43.3, RDW Coeff of Laly 13.0, Plt Count 440, MPV 10.0, Immature Gran % (Auto) 2.000 H, Neut % (Auto) 91.2 H, Lymph % (Auto) 3.5 L, [place] % (Auto) 3.3, Eos % (Auto) 0.0, Baso % (Auto) 0.0, Absolute Neuts (auto) 28.8 H, Absolute Lymphs (auto) 1.12, Nucleated RBC % 0, Differential Comment SCANNED, Diff Path Review November, Sodium 142, Potassium 4.0, Chloride 106, Carbon Dioxide 36.0 H, Anion Gap 0 L, BUN 37 H, Creatinine 0.63, Estim Creat Clear Calc 47.14, Est GFR (MDRD) Af Amer 121, Est GFR (MDRD) Non-Af 100, BUN/Creatinine Ratio 58.6 H, Glucose 177 H, Calcium 9.5 06/06/23 03:20: WBC 25.9 H, RBC 3.98 L, Hgb 11.2 L, Hct 36.2 L, MCV 91.0, MCH 28.1, MCHC 30.9 L, RDW Std Deviation 42.5, RDW Coeff of Laly 12.7, Plt Count 437, MPV 10.2, Immature Gran % (Auto) 1.700 H, Neut % (Auto) 88.9 H, Lymph % (Auto) 4.7 L, [place] % (Auto) 4.0, Eos % (Auto) 0.2, Baso % (Auto) 0.5, Absolute Neuts (auto) 23.0 H, Absolute Lymphs (auto) 1.21, Nucleated RBC % 0, Differential Comment SCANNED, Sodium 142, Potassium 3.6, Chloride 101, Carbon Dioxide 39.0 H, Anion Gap 2 L, BUN 34 H, Creatinine 0.61, Estim Creat Clear Calc 47.14, Est GFR (MDRD) Af Amer 127, Est GFR (MDRD) Non-Af 105, BUN/Creatinine Ratio 56.1 H, Glucose 134 H, Calcium 9.0 Micro: Microbiology 06/02/23 10:34 Urine, Catheterized Urine Culture - Final Culture exhibits no growth. 06/02/23 10:47 Blood Culture (Wb) - Right Hand Blood Culture - Preliminary No growth in 48 hours. 06/02/23 09:26 Blood Culture (Wb) - Left Hand Blood Culture - Preliminary No growth in 48 hours. 06/03/23 09:15 Mucosa - Nose Coronavirus COVID-19 PCR - Final 06/02/23 10:34 Urine, Random Legionella Antigen - Final 06/02/23 10:34 Urine, Random Streptococcus pneumoniae Antigen (M - Final 06/02/23 11:22 Mucosa - Nasopharyngeal Respiratory Panel (PCR) - Final Rhythm Strip Rhythm Strip: Sinus Tach Rate: 120 Ectopy: None Physical Exam Const alert and oriented x3 Constitutional Narrative: frail.on AirVo General Appearance: cooperative HEENT normocephalic and head/scalp atraumatic Eyes PERRL and EOMs intact bilaterally Neck no lymphadenopathy and supple Lymph Lymphatic: no lymphadenopathy noted Resp Resp Narrative: diminished breath sounds bibasally, no wheezes. on AirVo Cardio regular rate, regular rhythm, S1 normal heart sound, S2 normal heart sound and no murmurs Cardio Narrative: tachypneic GI normal to inspection, nondistended, normoactive bowel sounds, soft to palpation, non-tender and non-distended Extremity normal capillary refill, no clubbing, cyanosis or edema and no calf tenderness General Extremity: no tenderness to palpation of joints or extremities Skin General Skin Exam: no breakdown Neuro CN's II-XII intact bilaterally, no focal motor deficits and no sensory deficits noted Motor Exam: strength 5/5 throughout and general weakness Psych thought process normal Mood & Affect: anxious and flat affect Assessment & Plan Assessment/Plan (1) Parapneumonic effusion: (2) Community acquired pneumonia of right lower lobe of lung: PLAN: Plan #Acute on chronic hypoxic respiratory failure due to community acquired pneumonia * still on airvo. * wbc is down to 25 today. * on meropenem * COVID and flu negative * titrate oxygen to maintain sats >90% * breathing treatment with bronchodilators * Blood cultures negative after 48 hours. Urine for strep and Legionella negative and urine culture also negative. COVID PCR was negative. * In positive fluid balance by 1336mls. continue diuresing with IV lasix. * #Hypokalemia: potassium is 3.6. Will monitor #Acute on chronic hypoxic respiratory failure due to acute COPD exacerbation with hypoxia and hypercapnia * Does have known COPD. * on IV Solu-Medrol. Breathing treatments and bronchodilators. * on AirVo * Titrate oxygen to maintain saturation above 90% * critical care on board * #Afib * on metoprolol * on eliquis for DVT prophylaxis * 2D echo showed EF of 65% with stage I diastolic dysfunction and no regional wall motion abnormalities noted. Valves were normal. * * # Nicotine dependence: Counseled to quit. Nicotine patch 21 mg daily. DVT Prophylaxis: on eliquis CODE STATUS: Full code * Charges/Coding Visit Charges Inpatient E&M: 70969 Subs Hosp L2
[2023-06-06 13:30] LABS: Pathologist Review Reviewed
[2023-06-06 13:38] LABS: Pathologist Review Reviewed
[2023-06-06] MEDS: Oxycodone/Apap 5/325 Tablet PO (14:37)
[2023-06-06] MEDS: MELATONIN 10 MG TABLET PO (21:13)
[2023-06-06] MEDS: Montelukast 10 MG Tablet PO (21:13)
[2023-06-07] VITALS (17 sets, daily range): BP systolic 120–158; BP diastolic 58–93; PULSE 71–88; RESP 12–24; TEMP 37.3–37.8; O2SAT 91–96
--- NOTE | 2023-06-07 | FLU_PTH ---
PATIENT: SNEHA CARDENAS LOC: [facility] U#:[id number] AGE/SX: 68/F ROOM: [facility] RE06/02/[address]: Dr. Robel Funk DO : 1955 BED: 1 DIS: 06/16/2023 SPEC #: [id number] RECD: 06/08/23 07:49 STATUS: SOUCarlos REQ #: [id number] CARLOS: 06/07/23 00:[address]: Pao Weeks DEPT: CYTOLOGY RECD BY: eMre Diamond ENTERED: 06/08/23 07:49 SP TYPE: Fluid OTHR DR: MD Dr. Adrian Adams, MD Dr. Td Hawley Dr., MD Dr. Ford Michel Dr., MD Dr. Victor Velasquez, MD Christina Muller, DIRECTOR OF RESTAURANT-C Tissues: Pleural fluid, NOS Procedures: Special Stain Group II Surgery Specimen Level IV Cytospin Fluid Comments: @ Ordering doctor for SSII edited from to @ by ANN at 06/08/23 1506 @ Ordering doctor for SUIV edited from to DR.LALJUN Marroquin by ANN at 06/08/23 1506 @ Ordering doctor for CYSPIN edited from to DR.LALJUN Marroquin by ANN at 06/08/23 1506 @ Submitting doctor edited from to DR.LALJUN Lopez JUAREZ at 06/08/23 1506 HEADER OPERATION: Ultrasound-guided thoracentesis PRE-OP DIAGNOSIS: Pleural effusion TISSUE SUBMITTED: Thoracentesis fluid for cytology DIAGNOSIS CYTOLOGY Thoracentesis fluid for cytology (cytospin and cell block): Marked acute inflammation. Negative for malignant cells. AM:sinan 06/09/2023 CYTOLOGY STUDY Slides are reviewed. CYTOLOGY GROSS Received is 80 ml of yellow cloudy fluid labeled with the patient's name and and designated per the requisition as thoracentesis. Submitted for cytology preparation including cell block. / sinan 06/08/2023 TC:2 CPT: 10830, 80869
[2023-06-07 01:31] LABS: Vancomycin, Trough Level 13.4 ug/mL (5.0-15.0)
[2023-06-07] MEDS: Vancomycin Trough/Random Due 1 LAB MC (01:53)
[2023-06-07] MEDS: Vancomycin HCl 1,500 MG in 0.9% Normal Saline (500mL Bag) 500 ML 250 MG IV (01:53)
--- NOTE | 2023-06-07 01:53 | PCM.RX.CS ---
Consult Antibiotic Management Pharmacy has been consulted to manage selected antiobiotic: Vancomycin Type of Intervention Type of Consult: Follow-up Labs Labs: Sodium 142 mmol/L (136-145) 06/06/23 03:20 Potassium 3.6 mmol/L (3.5-5.1) 06/06/23 03:20 Chloride 101 mmol/L (98-107) 06/06/23 03:20 Carbon Dioxide 39.0 mmol/L (21.0-32.0) H 06/06/23 03:20 Anion Gap 2 (5-15) L 06/06/23 03:20 BUN 34 mg/dL (7-18) H 06/06/23 03:20 Creatinine 0.61 mg/dL (0.55-1.02) 06/06/23 03:20 Est GFR (MDRD) Af Amer 127 mL/min (>60) 06/06/23 03:20 Est GFR (MDRD) Non-Af 105 mL/min (>60) 06/06/23 03:20 BUN/Creatinine Ratio 56.1 RATIO (10-20) H 06/06/23 03:20 Glucose 134 mg/dL (74-106) H 06/06/23 03:20 Vancomycin Trough 13.4 ug/mL (5.0-15.0) 06/07/23 01:00 Microbiology Microbiology: Microbiology 06/02/23 10:34 Urine, Catheterized Urine Culture - Final Culture exhibits no growth. 06/02/23 10:47 Blood Culture (Wb) - Right Hand Blood Culture - Preliminary No growth in 48 hours. 06/02/23 09:26 Blood Culture (Wb) - Left Hand Blood Culture - Preliminary No growth in 48 hours. 06/03/23 09:15 Mucosa - Nose Coronavirus COVID-19 PCR - Final 06/02/23 10:34 Urine, Random Legionella Antigen - Final 06/02/23 10:34 Urine, Random Streptococcus pneumoniae Antigen (M - Final 06/02/23 11:22 Mucosa - Nasopharyngeal Respiratory Panel (PCR) - Final Goal Trough Goal Trough: 15-20 mcg/mL Pharmacy Plan for Drug Dosing Pharmacy Plan for Drug Dosing: Pharmacy Service will continue to monitor and adjust dosing as required. TROUGH 13.4 INCREASE TO 1500MG Q12H AND FOLLOW UP TROUGH PRIOR TO 4TH DOSE Follow-Up Labs Follow-Up Labs: Trough: Vancomycin Date/Time Labs Ordered Labs to be done on [date and time ordered]: 06/08 @ 1300
[2023-06-07] MEDS: Ipratropium/Albuterol Sulfate 3 ML AMPUL.NEB INHALATION ×5 (03:02→19:18)
[2023-06-07] MEDS: Meropenem 1 GM in 0.9% Normal Saline (100mL MB+) 100 ML IV ×3 (04:54→21:39)
[2023-06-07 04:59] LABS: Absolute Lymphocyte Count 1.24 X10^3/uL (0.83-4.51); Absolute Neutrophil Count 20.2 X10^3/uL (2.0-7.7); Basophil# 0.12 X10^3/uL; Basophil% 0.5 % (0-1); Eosinophil# 0.03 X10^3/uL; Eosinophils% 0.1 % (0-5); Hematocrit 38.1 % (37-47); Hemoglobin 11.9 g/dL (12.0-15.0); Lymphocyte # 1.24 X10^3/ul (0.83-4.51); Lymphocyte % 5.4 % (19-41); Mean Corp Hgb Conc 31.2 g/dL (32-36); Mean Corpuscular Volume 89.6 fL (81-99); Monocyte% 4.8 % (0-10); NRBC Flagged by Analyzer 0 % (0-5); Neutrophil # 20.19 X10^3/uL (2.7-7.7); Neutrophil % 87.8 % (47-70); POSITIVE DIFFERENTIAL YES; Platelet Count 403 K/mm3 (150-450); RBC Distribution Width CV 12.7 % (11.6-14.6); RBC Distribution Width SD 42.1 fl (35.1-43.9); Red Blood Count 4.25 M/mm3 (4.2-5.4)
[2023-06-07 05:19] LABS: Differential Indicated SCAN CRITERIA MET
[2023-06-07 05:27] LABS: Ionized Calcium 4.69 mg/dL (4.36-5.20)
[2023-06-07 05:35] LABS: Anion Gap 2 (5-15); BUN 35 mg/dL (7-18); BUN/Creat Ratio 64.6 RATIO (10-20); Calcium,Total 8.8 mg/dL (8.5-10.1); Chloride 96 mmol/L (98-107); Creatinine, Serum 0.54 mg/dL (0.55-1.02); EST Glomerular Filtration Rate 119 mL/min (>60); Est Glom Filt Rate - Afr Amer 144 mL/min (>60); Estimated Creatinine Clearance 47.14 ml/min; Glucose 146 mg/dL (74-106); Magnesium 2.6 mg/dL (1.6-2.6); Potassium 3.3 mmol/L (3.5-5.1); Sodium Level 141 mmol/L (136-145)
[2023-06-07 05:41] LABS: Differential Comment SCANNED
--- NOTE | 2023-06-07 07:40 | RAD_ITS ---
STUDY: X-RAY CHEST REASON FOR EXAM: Female, 68 years old. Hypoxia TECHNIQUE: Frontal view of the chest COMPARISON: 06/02/2023 FINDINGS: There is a moderate right pleural effusion with overlying atelectasis. The lungs are are otherwise clear. There is no left pleural effusion. There is no pneumothorax. The heart is normal in size. The visualized osseous structures are within normal limits. RAD/Chest 1 View (Portable) IMPRESSION: Moderate right pleural effusion with overlying atelectasis. Electronically Signed: Deepak Small MD at 8:52 EST ,
[2023-06-07] MEDS: 0.9% Normal Saline (250mL Bag) 250 ML 15 ML IV (08:33)
--- NOTE | 2023-06-07 09:21 | CASEMGMT ---
Discharge Planning A list of?HH providers including quality and resource use data and consistent with the patient's preferred geographic region, medical needs, and insurance network was created in [facility] Guide.? This list was provided to the RN YOLANDA. Bhavana Ignacio, Discharge Planning Asst.
--- NOTE | 2023-06-07 10:45 | CASEMGMT ---
JAMI GUERRERO to room. Pt sitting up in chair w/Airvo in place. Discussed discharge planning. Pt states she feels she will be able to return home once her breathing has improved and is interested in HHC for SN. She does not know if she will need any therapy at this point. Pt provided w/HHC list that was prepared by Bhavana turnaround planner and asked to look over the list and pick top 3 preferences. She was made aware someone would be f/u with her re: her preferences. Margarito PINON JAMI CM
--- NOTE | 2023-06-07 10:50 | US_ITS ---
PROCEDURE: ULTRASOUND GUIDED THORACENTESIS. DATE: June 07, 2023.. INDICATION: Female, 68 years old. Right thoracentesis. PHYSICIAN: Michael Gaxiola M.D. PROCEDURE: The risks, benefits, and alternatives to the procedure were explained to the patient. The specific risks of bleeding, infection, and pneumothorax requiring chest tube insertion were discussed and accepted. Written informed consent was obtained. Ultrasonographic evaluation of the right lower pleural space was carried out. An adequate pocket was identified. The patient was placed in the sitting, upright position. The overlying skin was prepped and draped in sterile fashion. 1% lidocaine was administered subcutaneously for local anesthesia. Under ultrasound guidance, a 5 [place] thoracentesis needle/catheter system was advanced into the right posterior lower pleural fluid collection. Approximately 460 mL of cloudy jose-colored fluid was drained. The catheter was removed, and a sterile dressing was applied. A specimen was collected and sent to the laboratory for analysis, as requested by the referring clinician. The patient tolerated the procedure well. A chest x-ray was ordered. US/Thoracentesis W US IMPRESSION: Ultrasound-guided right thoracentesis. Electronically Signed: Michael Gaxiola MD at 15:26 EST ,
--- NOTE | 2023-06-07 10:58 | PN.CC_ITS ---
Assessment & Plan Assessment/Plan (1) COPD with acute exacerbation: PLAN: Plan Assessment * Acute on chronic hypoxic respiratory failure with hypercapnia (ABG on admission showed pH of 7.25 and PCO2 of 60) * Right pleural effusion and concerning for parapneumonic effusion versus empyema given pneumonia * COPD exacerbation * Sepsis secondary to right lower lobe pneumonia * History of tobacco use (~[id number] )quit 10 years ago * Abnormal chest CT * A fib Plan -Patient remains short of breath with exertion she is on Airvo at 60 L and 40%. She is usually on 3 L nasal cannula. -She did not wear her BiPAP last night. Discussed with the patient and RT. We will try different mask. She will also try to wear the BiPAP during the day to get her more accustomed to it. -BedSide ultrasound today showed moderate-size right pleural effusion with concern for septations. Attempted to locate pigtail catheter unable to locate one. Discussed with IR they do not usually place pigtails. will proceed with thoracentesis and send fluid for cultures and cytology. If pleural effusion remains persistent or recurs will discuss different options. -Wean O2 as tolerated -Reduce Solu-Medrol to every 8 and scheduled DuoNebs -Viral panel is negative. Legionella urine antigen is negative. MRSA swab is negative. DC vancomycin continue Merrem -Discussed chest CT scan findings. We discussed that she will need repeat CT scan in 6 to 8 weeks to ensure resolution. -Patient quit smoking 10 years ago. Encouraged to continue smoking cessation. -PT OT -DVT prophylaxis pt is on home eliquis Subjective Subjective She remains on Airvo at 60 L and 40%. She did not wear her BiPAP last night. Discussed with the patient and RT. We will try different mask. She will also try to wear the BiPAP during the day to get her more accustomed to it. Objective Data Objective Data Vital Signs: Vital Signs Temp Pulse Resp BP Pulse Ox O2 Del Method O2 Flow Rate 37.3 C H 71 17 157/67 H 93 Airvo 60 06/07/23 06:00 06/07/23 06:00 06/07/23 06:00 06/07/23 06:00 06/07/23 06:00 06/07/23 06:00 06/07/23 03:00 FiO2 35 06/07/23 03:00 Oxygen Flow Rate (L/min) 60 Oxygen Delivery Method Airvo Weight: 75.2 kg Body Mass Index (BMI) 28.4 Intake & Output: Intake and Output for Last 24 Hours 06/05/23 06/06/23 06/07/23 23:59 23:59 23:59 Intake Total 2009 835 / 865 680 / 680 Output Total 3900 / 3900 2225 / 3425 1500 / 1500 Balance -1890 / -1890 -1390 / -2560 -820 / -820 Lab / Micro Data 06/07/23 04:45 06/07/23 04:45 Labs: Laboratory Results - last 24 hr 06/04/23 05:55: Diff Path Review Reviewed 06/05/23 12:55: Diff Path Review Reviewed 06/07/23 01:00: Vancomycin Trough 13.4 06/07/23 04:45: WBC 23.0 H, RBC 4.25, Hgb 11.9 L, Hct 38.1, MCV 89.6, MCH 28.0, MCHC 31.2 L, RDW Std Deviation 42.1, RDW Coeff of Laly 12.7, Plt Count 403, MPV 10.0, Immature Gran % (Auto) 1.400 H, Neut % (Auto) 87.8 H, Lymph % (Auto) 5.4 L , [place] % (Auto) 4.8, Eos % (Auto) 0.1, Baso % (Auto) 0.5, Absolute Neuts (auto) 20.2 H, Absolute Lymphs (auto) 1.24, Nucleated RBC % 0, Differential Comment SCANNED, Sodium 141, Potassium 3.3 L, Chloride 96 L, Carbon Dioxide 43.0 H, Anion Gap 2 L, BUN 35 H, Creatinine 0.54 L, Estim Creat Clear Calc 47.14, Est GFR (MDRD) Af Amer 144, Est GFR (MDRD) Non-Af 119, BUN/Creatinine Ratio 64.6 H, Glucose 146 H, Calcium 8.8, Magnesium 2.6 06/07/23 05:23: Ionized Calcium 4.69 Micro: Microbiology 06/02/23 09:26 Blood Culture (Wb) - Left Hand Blood Culture - Final No growth in 5 days. 06/02/23 10:34 Urine, Catheterized Urine Culture - Final Culture exhibits no growth. 06/02/23 10:47 Blood Culture (Wb) - Right Hand Blood Culture - Preliminary No growth in 48 hours. 06/03/23 09:15 Mucosa - Nose Coronavirus COVID-19 PCR - Final 06/02/23 10:34 Urine, Random Legionella Antigen - Final 06/02/23 10:34 Urine, Random Streptococcus pneumoniae Antigen (M - Final 06/02/23 11:22 Mucosa - Nasopharyngeal Respiratory Panel (PCR) - Final Radiography Diagnostic Testing: Radiology Impression Chest X-Ray 06/07/23 07:40 IMPRESSION: Moderate right pleural effusion with overlying atelectasis. Electronically Signed: Deepak Small MD at 8:52 EST , Rhythm Strip Rhythm Strip: Sinus Tach Rate: 120 Ectopy: None Physical Exam Narrative General alert oriented in no acute distress HEENT. Normocephalic atraumatic, pupils equal and reactive Respiratory reduced air entry bilaterally worse on the right, no wheezing Cardiac S1-S2, regular rate and rhythm GI abdomen soft and nontender MSK no lower extremity edema Skin no rashes Neuro moves all extremities, no dysarthria, no facial droop Chest inspection of chest normal Charges/Coding Visit Charges Inpatient E&M: 95996 Subs Hosp L3
--- NOTE | 2023-06-07 11:25 | PN_ITS ---
Subjective Subjective Patient seen and examined. She complains of anxiety. She has been refusing bipap. She says she is scared of using the bipap for prolonged period. She denies any chest pain, palpitations, dizziness, nausea, vomiting or any other symptoms. REveiw of systems is otherwise negative. Objective Data Objective Data Vital Signs: Vital Signs Temp Pulse Resp BP Pulse Ox O2 Del Method O2 Flow Rate 99.2 F H 71 17 157/67 H 93 Airvo 60 06/07/23 06:00 06/07/23 06:00 06/07/23 06:00 06/07/23 06:00 06/07/23 06:00 06/07/23 06:00 06/07/23 03:00 FiO2 35 06/07/23 03:00 Oxygen Flow Rate (L/min) 60 Oxygen Delivery Method Airvo Weight: 165 lb 12.602 oz Body Mass Index (BMI) 28.4 Intake & Output: Intake and Output for Last 24 Hours 06/05/23 06/06/23 06/07/23 23:59 23:59 23:59 Intake Total 2009 835 / 865 680 / 680 Output Total 3900 / 3900 2225 / 3425 1500 / 1500 Balance -1890 / -1890 -1390 / -2560 -820 / -820 Lab / Micro Data 06/07/23 04:45 06/07/23 04:45 Labs: Laboratory Results - last 24 hr 06/04/23 05:55: Diff Path Review Reviewed 06/05/23 12:55: Diff Path Review Reviewed 06/07/23 01:00: Vancomycin Trough 13.4 06/07/23 04:45: WBC 23.0 H, RBC 4.25, Hgb 11.9 L, Hct 38.1, MCV 89.6, MCH 28.0, MCHC 31.2 L, RDW Std Deviation 42.1, RDW Coeff of Laly 12.7, Plt Count 403, MPV 10.0, Immature Gran % (Auto) 1.400 H, Neut % (Auto) 87.8 H, Lymph % (Auto) 5.4 L , [place] % (Auto) 4.8, Eos % (Auto) 0.1, Baso % (Auto) 0.5, Absolute Neuts (auto) 20.2 H, Absolute Lymphs (auto) 1.24, Nucleated RBC % 0, Differential Comment SCANNED, Sodium 141, Potassium 3.3 L, Chloride 96 L, Carbon Dioxide 43.0 H, Anion Gap 2 L, BUN 35 H, Creatinine 0.54 L, Estim Creat Clear Calc 47.14, Est GFR (MDRD) Af Amer 144, Est GFR (MDRD) Non-Af 119, BUN/Creatinine Ratio 64.6 H, Glucose 146 H, Calcium 8.8, Magnesium 2.6 06/07/23 05:23: Ionized Calcium 4.69 Micro: Microbiology 06/02/23 09:26 Blood Culture (Wb) - Left Hand Blood Culture - Final No growth in 5 days. 06/02/23 10:34 Urine, Catheterized Urine Culture - Final Culture exhibits no growth. 06/02/23 10:47 Blood Culture (Wb) - Right Hand Blood Culture - Preliminary No growth in 48 hours. 06/03/23 09:15 Mucosa - Nose Coronavirus COVID-19 PCR - Final 06/02/23 10:34 Urine, Random Legionella Antigen - Final 06/02/23 10:34 Urine, Random Streptococcus pneumoniae Antigen (M - Final 06/02/23 11:22 Mucosa - Nasopharyngeal Respiratory Panel (PCR) - Final Radiography Diagnostic Testing: Radiology Impression Chest X-Ray 06/07/23 07:40 IMPRESSION: Moderate right pleural effusion with overlying atelectasis. Electronically Signed: Deepak Small MD at 8:52 EST Reading Location ID and State: [facility] / [place] Tel , Service support , Rhythm Strip Rhythm Strip: Sinus Tach Rate: 120 Ectopy: None Physical Exam Const alert and oriented x3 Constitutional Narrative: frail. remains on AirVo General Appearance: cooperative HEENT normocephalic and head/scalp atraumatic Eyes PERRL and EOMs intact bilaterally Neck no lymphadenopathy and supple Lymph Lymphatic: no lymphadenopathy noted Resp Resp Narrative: diminished breath sounds bibasally, no wheezes. remains on AirVo Cardio regular rate, regular rhythm, S1 normal heart sound, S2 normal heart sound and no murmurs GI normal to inspection, nondistended, normoactive bowel sounds, soft to palpation, non-tender and non-distended Extremity normal capillary refill, no clubbing, cyanosis or edema and no calf tenderness General Extremity: no tenderness to palpation of joints or extremities Skin General Skin Exam: no breakdown Neuro CN's II-XII intact bilaterally, no focal motor deficits and no sensory deficits noted Motor Exam: strength 5/5 throughout and general weakness Psych thought process normal Mood & Affect: anxious Assessment & Plan Assessment/Plan (1) Parapneumonic effusion: (2) Community acquired pneumonia of right lower lobe of lung: PLAN: Plan #Acute on chronic hypoxic respiratory failure due to community acquired pneumonia * still on airvo. Has been refusing BIPAP * wbc is down to 23 today. * remains on meropenem * COVID and flu negative * titrate oxygen to maintain sats >90% * breathing treatment with bronchodilators * Blood cultures negative after 48 hours. Urine for strep and Legionella negative and urine culture also negative. COVID PCR was negative. * now in negative balance by 1.038L * #Hypokalemia: potassium is 3.3 today. Will replace and trend. #Acute on chronic hypoxic respiratory failure due to acute COPD exacerbation with hypoxia and hypercapnia * Does have known COPD. * on IV Solu-Medrol. Breathing treatments and bronchodilators. * on AirVo; encouraged to be complaint with BIPAP. * Titrate oxygen to maintain saturation above 90% * critical care on board * #Afib * on metoprolol * on eliquis for DVT prophylaxis * 2D echo showed EF of 65% with stage I diastolic dysfunction and no regional wall motion abnormalities noted. Valves were normal. * * # Nicotine dependence: Counseled to quit. Nicotine patch 21 mg daily. DVT Prophylaxis: on eliquis CODE STATUS: Full code * Charges/Coding Visit Charges Inpatient E&M: 94968 Subs Hosp L2
[2023-06-07] MEDS: busPIRone 5 MG Tablet 10 MG PO ×2 (12:25→21:34)
[2023-06-07] MEDS: Metoprolol Tartrate 25 MG Tablet PO ×2 (12:26→21:34)
[2023-06-07] MEDS: 0.9% Saline Lock 10 ML Syringe IV ×2 (12:28→21:35)
[2023-06-07 12:54] LABS: Ionized Calcium Order ORDER TUBE
--- NOTE | 2023-06-07 14:00 | RAD_ITS ---
STUDY: X-RAY CHEST REASON FOR EXAM: Female, 68 years old. Post thoracentesis TECHNIQUE: AP inspiration and expiration views. COMPARISON: Comparison is made with prior study done earlier today. FINDINGS: The patient is status post right thoracentesis. There is no evidence of a pneumothorax. Residual pleural-parenchymal changes seen at the right lung base. RAD/Chest Insp/Exp 2 View IMPRESSION: Status post right thoracentesis. No evidence of pneumothorax. Electronically Signed: Michael Gaxiola MD at 14:28 EST ,
[2023-06-07 16:17] LABS: Cytology, Body Fluid / CSF SEE PATHOLOGY REPORT
[2023-06-07 16:45] LABS: Body Fluid Mononuclear WBC % 7.1 %; Body Fluid Polynuclear WBC # 1.052 10^3/uL; Body Fluid Polynuclear WBC % 92.9 %; Body Fluid Total Cells Counted 1.132 10^3/ul; White Blood Count/Body Fluid 1.132 10^3/uL
[2023-06-07 17:47] LABS: Auto B Fluid Analyzer BKGD Ct COUNTS W/IN LIMITS (W/IN LIMITS)
[2023-06-07 17:48] LABS: Appearance/Body Fluid SL CLDY; Color/Body Fluid YELLOW; Source- Body Fluid PLEURAL FLUID
[2023-06-07 17:49] LABS: Red Cell Count/Body Fluid 471 /mm3
[2023-06-07 18:07] LABS: Glucose, Body Fluid 80 mg/dL (40-70); LDH,Body Fluid 3968 Units/L (Not Establ.); Protein, Body Fluid 4.1 g/dL (Not Establ.)
[2023-06-07] MEDS: Ondansetron 4 MG/2 ML Vial IV (18:28)
[2023-06-07] MEDS: MELATONIN 10 MG TABLET PO (21:35)
[2023-06-07] MEDS: Montelukast 10 MG Tablet PO (21:35)
[2023-06-08] VITALS (16 sets, daily range): BP systolic 132–156; BP diastolic 59–77; PULSE 66–84; RESP 12–26; TEMP 35.6–37.5; O2SAT 92–99; BMI 26.9
[2023-06-08] MEDS: Ipratropium/Albuterol Sulfate 3 ML AMPUL.NEB INHALATION ×5 (02:47→19:11)
[2023-06-08 04:34] LABS: Anion Gap 1 (5-15); BUN 38 mg/dL (7-18); Calcium,Total 8.6 mg/dL (8.5-10.1); Chloride 97 mmol/L (98-107); Creatinine, Serum 0.45 mg/dL (0.55-1.02); EST Glomerular Filtration Rate 149 mL/min (>60); Est Glom Filt Rate - Afr Amer 180 mL/min (>60); Estimated Creatinine Clearance 47.14 ml/min; Glucose 142 mg/dL (74-106); LDH 212 U/L (84-246); Magnesium 2.7 mg/dL (1.6-2.6); Potassium 3.5 mmol/L (3.5-5.1); Sodium Level 142 mmol/L (136-145)
[2023-06-08] MEDS: 0.9% Saline Lock 10 ML Syringe IV ×2 (05:55→20:19)
[2023-06-08] MEDS: Meropenem 1 GM in 0.9% Normal Saline (100mL MB+) 100 ML IV ×3 (05:58→21:22)
[2023-06-08] MEDS: Potassium Chloride Oral Tablet 20 MEQ 40 MEQ PO (08:49)
[2023-06-08] MEDS: busPIRone 5 MG Tablet 10 MG PO ×2 (08:50→21:21)
[2023-06-08] MEDS: Metoprolol Tartrate 25 MG Tablet PO ×2 (08:50→21:21)
[2023-06-08] MEDS: 0.9% Normal Saline (250mL Bag) 250 ML 15 ML IV (08:51)
[2023-06-08 08:52] LABS: Absolute Neutrophil Count 19.1 X10^3/uL (2.0-7.7); Basophil# 0.09 X10^3/uL; Basophil% 0.4 % (0-1); Eosinophil# 0.04 X10^3/uL; Eosinophils% 0.2 % (0-5); Hematocrit 31.8 % (37-47); Hemoglobin 9.8 g/dL (12.0-15.0); Lymphocyte % 5.5 % (19-41); Mean Corp Hgb Conc 30.8 g/dL (32-36); Mean Corpuscular Hgb 28.3 pg (27.0-32.0); Mean Corpuscular Volume 91.9 fL (81-99); Mean Platelet Vol. 10.4 fl (6.2-12.0); Monocyte# 0.91 X10^3/uL; Monocyte% 4.2 % (0-10); NRBC Flagged by Analyzer 0 % (0-5); Neutrophil # 19.12 X10^3/uL (2.7-7.7); Neutrophil % 87.6 % (47-70); Platelet Count 351 K/mm3 (150-450); RBC Distribution Width CV 12.7 % (11.6-14.6); RBC Distribution Width SD 42.2 fl (35.1-43.9); Red Blood Count 3.46 M/mm3 (4.2-5.4); White Blood Count 21.8 K/mm3 (4.4-11.0)
[2023-06-08] MEDS: Potassium Chloride 10mEq/100mL 10 MEQ/100 ML IV.SOLN. 100 MEQ IV BOLUS ×2 (08:53→10:09)
--- NOTE | 2023-06-08 09:44 | PN.CC_ITS ---
Assessment & Plan Assessment/Plan (1) COPD with acute exacerbation: PLAN: Plan Assessment * Acute on chronic hypoxic respiratory failure with hypercapnia (ABG on admission showed pH of 7.25 and PCO2 of 60) * Right pleural effusion exudative and neutrophilic predominant likely related to pneumonia * Acute blood loss anemia likely secondary to GI bleed * COPD exacerbation * Sepsis secondary to right lower lobe pneumonia * History of tobacco use (~[id number] )quit 10 years ago * Abnormal chest CT * A fib Plan -Patient's respiratory status much improved after thoracentesis yesterday. She had a total of 460 C of cloudy jose fluid moved. Initial analysis suggestive of exudative fluid concern for infection as fluid LDH family elevated at 3968. Cultures are pending. We will repeat chest x-ray tomorrow monitor for recurrence. If indeed she does have recurrence and given the appearance of pleural effusion on ultrasound with septations noted she will likely need a chest tube with tPA dornase and thus will require transfer. -However developed melena overnight and has had 2 dark bowel movements. Her Eliquis has been on hold since yesterday as she was undergoing thoracentesis. W e will continue to hold. Her hemoglobin has dropped 2 g. ? Started on Protonix IV twice daily. Consulted GI ?Switch to p.o. prednisone. Continue scheduled DuoNebs ?Continue to follow cultures. She remains on Merrem. She will likely require at least 2 to 3 weeks of antibiotics given her scan findings and development of exudative effusion. -Viral panel is negative. Legionella urine antigen is negative. MRSA swab is negative. -Discussed chest CT scan findings with the patient. We discussed that she will need repeat CT scan in 6 to 8 weeks to ensure resolution. -Patient quit smoking 10 years ago. Encouraged to continue smoking cessation. -PT OT -DVT prophylaxis SCDs Subjective Subjective Reports improvement of her breathing after thoracentesis. She is off Airvo and she is currently 6 L via nasal cannula. She had a couple of melanotic stools overnight. Her Eliquis was held yesterday for thoracentesis. We will continue to hold it. Objective Data Objective Data Vital Signs: Vital Signs Temp Pulse Resp BP Pulse Ox O2 Del Method O2 Flow Rate 36.3 C L 84 23 H 151/67 H 94 Nasal Cannula 5 06/08/23 09:00 06/08/23 09:00 06/08/23 09:00 06/08/23 09:00 06/08/23 09:00 06/08/23 09:00 06/08/23 09:00 FiO2 45 06/07/23 15:30 Oxygen Flow Rate (L/min) 5 Oxygen Delivery Method Nasal Cannula Weight: 71.1 kg Body Mass Index (BMI) 26.9 Intake & Output: Intake and Output for Last 24 Hours 06/06/23 06/07/23 06/08/23 23:59 23:59 23:59 Intake Total 835 / 865 2046.75 / 2046.75 179.50 / 179.50 Output Total 2225 / 3425 3320 / 3320 350 / 350 Balance -1390 / -2560 -1273.25 / -1273.25 -170.50 / -170.50 Lab / Micro Data 06/08/23 08:45 06/08/23 04:09 Labs: Laboratory Results - last 24 hr 06/07/23 : Fluid Source PLEURAL FLUID, Fluid Color YELLOW, Fluid Appearance SL CLDY, Fluid WBC 1.132, Fluid RBC 471, Fluid Tot Cell Count 1.132 H, Fld Polynuclear WBCs # 1.052, Fld Polynuclear WBCs % 92.9, Fluid Mononuclear WBCs 0.080, Fld Mononuclear WBCs % 7.1, Fl Pathologist Comment May follow, Fluid Glucose 80 H, Fluid Total Protein 4.1, Fluid LDH 3968, Fluid Comment 2 SEE COMMENT 06/08/23 04:09: Sodium 142, Potassium 3.5, Chloride 97 L, Carbon Dioxide 44.0 H, Anion Gap 1 L, BUN 38 H, Creatinine 0.45 L, Estim Creat Clear Calc 47.14, Est GFR (MDRD) Af Amer 180, Est GFR (MDRD) Non-Af 149, BUN/Creatinine Ratio 85.0 H, Glucose 142 H, Calcium 8.6, Magnesium 2.7 H, Lactate Dehydrogenase 212 06/08/23 08:45: WBC 21.8 H, RBC 3.46 L, Hgb 9.8 L, Hct 31.8 L, MCV 91.9, MCH 28.3, MCHC 30.8 L, RDW Std Deviation 42.2, RDW Coeff of Laly 12.7, Plt Count 351, MPV 10.4, Immature Gran % (Auto) 2.100 H, Neut % (Auto) 87.6 H, Lymph % (Auto) 5.5 L, [place] % (Auto) 4.2, Eos % (Auto) 0.2, Baso % (Auto) 0.4, Absolute Neuts (auto) 19.1 H, Absolute Lymphs (auto) 1.20, Nucleated RBC % 0 Micro: Microbiology 06/02/23 10:47 Blood Culture (Wb) - Right Hand Blood Culture - Final No growth in 5 days. 06/02/23 09:26 Blood Culture (Wb) - Left Hand Blood Culture - Final No growth in 5 days. 06/02/23 10:34 Urine, Catheterized Urine Culture - Final Culture exhibits no growth. 06/03/23 09:15 Mucosa - Nose Coronavirus COVID-19 PCR - Final 06/02/23 10:34 Urine, Random Legionella Antigen - Final 06/02/23 10:34 Urine, Random Streptococcus pneumoniae Antigen (M - Final 06/02/23 11:22 Mucosa - Nasopharyngeal Respiratory Panel (PCR) - Final Radiography Diagnostic Testing: Radiology Impression Thoracentesis Ultrasound 06/07/23 10:50 IMPRESSION: Ultrasound-guided right thoracentesis. Electronically Signed: Michael Gaxiola MD at 15:26 EST , Chest X-Ray 06/07/23 14:00 IMPRESSION: Status post right thoracentesis. No evidence of pneumothorax. Electronically Signed: Michael Gaxiola MD at 14:28 EST , Rhythm Strip Rhythm Strip: Sinus Tach Rate: 120 Ectopy: None Physical Exam Narrative General alert oriented in no acute distress HEENT. Normocephalic atraumatic, pupils equal and reactive Respiratory reduced air entry bilaterally worse on the right, no wheezing Cardiac S1-S2, regular rate and rhythm GI abdomen soft and nontender MSK no lower extremity edema Skin no rashes Neuro moves all extremities, no dysarthria, no facial droop Charges/Coding Visit Charges Inpatient E&M: 06326 Subs Hosp L3
[2023-06-08] MEDS: Pantoprazole Sodium 40 MG in 0.9% Normal Saline (100mL MB+) 100 ML 330 MG IV ×2 (10:08→20:29)
--- NOTE | 2023-06-08 12:58 | CASEMGMT ---
RN YOLANDA Follow-up: This RN CM met with pt face to face. Pt sitting up in chair stating this has been a rough day. Reviewed events of the last day with pt and emotional support provided. Discussed pt's choice in home healthcare providers and pt states her first choice is [facility] and second choice is [facility]. THELMA Bateman [employer] notified of pt's choice and requested to send referral. Scar Swan RN CM
--- NOTE | 2023-06-08 14:27 | CASEMGMT ---
Addendum entered by Bhavana Ignacio 06/08/23 15:12: Discharge Planning [facility] declined patient d/t not being in network. RN CM updated. Bhavana Ignacio, Discharge Planning Asst. Addendum entered by Bhavana Ignacio 06/08/23 14:58: Discharge Planning [facility] declined patient. Referral sent to [facility] via [facility]. Bhavana Ignacoi, Discharge Planning Asst. Original Note: Discharge Planning Referral sent to [facility] via [facility]. Bhavana Ignacio, Discharge Planning Asst.
--- NOTE | 2023-06-08 15:52 | CASEMGMT ---
Discharge Planning Patient declined further HH referrals. JAMI CM updated.] Bhavana Ignacio, Discharge Planning Asst.
--- NOTE | 2023-06-08 16:27 | PCM.PN.HOSP ---
Reason for Visit Reason for Visit: Diagnoses Pneumonia, unspecified organism (06/02/23) Chronic obstructive pulmonary disease with (acute) exacerbation (06/02/23) Pleural effusion in other conditions classified elsewhere (06/02/23) Subjective Subjective Patient was seen and examined today, she is currently on 5 L nasal cannula oxygen, her hemoglobin this morning was 9.8, I wrote for a gastroenterology consultation regarding possible endoscopy. Objective Data Objective Data Vital Signs: Vital Signs Temp Pulse Resp BP Pulse Ox O2 Del Method O2 Flow Rate 96.0 F L 79 20 H 132/59 H 95 Nasal Cannula 5 06/08/23 15:47 06/08/23 15:47 06/08/23 15:47 06/08/23 15:47 06/08/23 15:47 06/08/23 15:47 06/08/23 15:47 FiO2 45 06/07/23 15:30 Oxygen Flow Rate (L/min) 5 Oxygen Delivery Method Nasal Cannula Weight: 71.1 kg Body Mass Index (BMI) 26.9 Intake & Output: Intake and Output for Last 24 Hours 06/06/23 06/07/23 06/08/23 23:59 23:59 23:59 Intake Total 835 / 865 2046.75 / 2046.75 640.25 / 640.25 Output Total 2225 / 3425 3320 / 3320 650 / 650 Balance -1390 / -2560 -1273.25 / -1273.25 -9.75 / -9.75 Lab / Micro Data 06/08/23 08:45 06/08/23 04:09 Labs: Laboratory Results - last 24 hr 06/07/23 : Fluid Source PLEURAL FLUID, Fluid Color YELLOW, Fluid Appearance SL CLDY, Fluid WBC 1.132, Fluid RBC 471, Fluid Tot Cell Count 1.132 H, Fld Polynuclear WBCs # 1.052, Fld Polynuclear WBCs % 92.9, Fluid Mononuclear WBCs 0.080, Fld Mononuclear WBCs % 7.1, Fl Pathologist Comment May follow, Fluid Glucose 80 H, Fluid Total Protein 4.1, Fluid LDH 3968, Fluid Comment 2 SEE COMMENT, Miscellaneous Cytology SEE PATHOLOGY REPORT 06/08/23 04:09: Sodium 142, Potassium 3.5, Chloride 97 L, Carbon Dioxide 44.0 H, Anion Gap 1 L, BUN 38 H, Creatinine 0.45 L, Estim Creat Clear Calc 47.14, Est GFR (MDRD) Af Amer 180, Est GFR (MDRD) Non-Af 149, BUN/Creatinine Ratio 85.0 H, Glucose 142 H, Calcium 8.6, Magnesium 2.7 H, Lactate Dehydrogenase 212 06/08/23 08:45: WBC 21.8 H, RBC 3.46 L, Hgb 9.8 L, Hct 31.8 L, MCV 91.9, MCH 28.3, MCHC 30.8 L, RDW Std Deviation 42.2, RDW Coeff of Laly 12.7, Plt Count 351, MPV 10.4, Immature Gran % (Auto) 2.100 H, Neut % (Auto) 87.6 H, Lymph % (Auto) 5.5 L, [place] % (Auto) 4.2, Eos % (Auto) 0.2, Baso % (Auto) 0.4, Absolute Neuts (auto) 19.1 H, Absolute Lymphs (auto) 1.20, Nucleated RBC % 0 Micro: Microbiology 06/07/23 Unknown Fluid - Pleural (Lung) Gram Stain - Final 06/08/23 10:15 Stool Stool Occult Blood (ROSAURA) - Final Occult Blood Positive 06/02/23 10:47 Blood Culture (Wb) - Right Hand Blood Culture - Final No growth in 5 days. 06/02/23 09:26 Blood Culture (Wb) - Left Hand Blood Culture - Final No growth in 5 days. 06/02/23 10:34 Urine, Catheterized Urine Culture - Final Culture exhibits no growth. 06/03/23 09:15 Mucosa - Nose Coronavirus COVID-19 PCR - Final 06/02/23 10:34 Urine, Random Legionella Antigen - Final 06/02/23 10:34 Urine, Random Streptococcus pneumoniae Antigen (M - Final 06/02/23 11:22 Mucosa - Nasopharyngeal Respiratory Panel (PCR) - Final Rhythm Strip Rhythm Strip: Sinus Tach Rate: 120 Ectopy: None Physical Exam Const alert and no apparent distress Constitutional Narrative: Patient appears older than her stated age General Appearance: cooperative, well kempt and well developed Orientation / Consciousness: awake, oriented to person and oriented to place HEENT normocephalic, head/scalp atraumatic and moist oral mucous membranes Eyes PERRL, EOMs intact bilaterally and conjunctivae normal Neck supple, no JVD, thyroid normal and no carotid bruits General: trachea midline Resp normal respiratory effort, no retractions and no use of accessory muscles Resp Narrative: Breath sounds are distant bilaterally Auscultation: Negative for rales, rhonchi or wheezes Cardio regular rate, regular rhythm, S1 normal heart sound, S2 normal heart sound, no murmurs, no rub and no gallops GI normal to inspection, nondistended, normoactive bowel sounds, soft to palpation, non-tender and non-distended Extremity no clubbing, cyanosis or edema Skin no rashes or lesions noted General Skin Exam: no breakdown Neuro CN's II-XII intact bilaterally, moves all extremities, no focal motor deficits and no sensory deficits noted Sensorium / Orientation: awake, alert, oriented to person and oriented to place Speech: speech normal Psych affect normal Assessment & Plan Assessment/Plan (1) Community acquired pneumonia of right lower lobe of lung: PLAN: Plan 1. Sepsis secondary to right lower lobe community-acquired pneumonia-patient will continue on IV antibiotics, pulmonary medicine is participating in her care #2 acute on chronic combined respiratory failure secondary to chronic obstructive pulmonary disease and pneumonia-patient is currently on 5 L via nasal cannula, her home oxygen requirement appears to be 3 L/min, continue aerosol treatments, IV steroids and antibiotics #3 acute anemia-etiology unclear-occult GI bleeding will need to be ruled out, gastroenterology will see the patient #4 chronic obstructive pulmonary disease-complicates care, medical course, recovery, and prognosis Total clinical time spent by myself addressing the patient's medical issues, reviewing all of her data, and collaborating with patient's care team: 35 minutes Charges/Coding Visit Charges Inpatient E&M: 18994 Subs Hosp L2
--- NOTE | 2023-06-08 16:53 | EX.PCM.CON.G ---
HPI Consult Data Date of Consult: 06/08/23 HPI Narrative Reason for Consultation: GI bleeding HPI Narrative: SNEHA CARDENAS, is a 68 F with a PMH as outlined who presented via the ED on 06/02/2023 with a complaint of shortness of breath. She had been seen in the ED ~ 2 days prior to this admission and was diagnosed with pneumonia; she was sent home on antibiotics. However, she had been declining at home and hadnt even started the antibiotics she was sent on . She therefore came back to the ED due ot her worsening state. VItals on admission was MA of 118, temp of 100.9F, RR of 30 and BP of 97/85 after receiving fluids. CBC showed Hb of 11.9, wbc of 23.8 and platelets of 504. ABG showed pH of 7.25 at the oxygen of 90% pCO2 of 60. Chemistry was unremarkable. Urinalysis showed no evidence of UTI. COVID and flu test was negative. Chest x-ray showed small right pleural effusion with a right basilar infiltrate. She was hydrated with fluids and blood pressure subsequently came up.. She was placed on BiPAP and has been admitted to be managed for acute hypoxic respiratory failure due to community-acquired pneumonia. She complains of anxiety. She has been refusing bipap. She says she is scared of using the bipap for prolonged period. I was asked to see but has been decreasing hemoglobin. She is on anti coagulation. She also has been having some melanotic stools. Her Eliquis has been on hold since yesterday as she was undergoing thoracentesis. We will continue to hold. Her hemoglobin has dropped 2 g. [facility]LY [facility] Medical History Anxiety Asthma Benign essential hypertension Benign essential tremor COPD (chronic obstructive pulmonary disease) Former tobacco use Migraines On home oxygen therapy Pneumonia due to COVID-19 virus Home Medications albuterol sulfate 90 mcg/actuation aerosol inhaler (Ventolin HFA) 2 puff inhalation Q4H PRN PRN Shortness Of Breath 08/28/15 [History Last Taken 11/30/22 10:00] montelukast 10 mg tablet 10 mg PO QHS ALLERGIES 02/25/18 [History Last Taken 11/29/22] fluticasone fur. 100 mcg-umeclid 62.5 mcg-vilant 25 mcg inhalat.powder (Trelegy Ellipta) 1 inh inhalation DAILY COPD 05/01/21 [History Last Taken 11/30/22] fluticasone propionate 50 mcg/actuation nasal spray,suspension 2 spray intranasal QHS ALLERGIES 05/01/21 [History Last Taken 11/28/22] levofloxacin 750 mg tablet 750 mg PO DAILY #7 tabs 12/03/22 [Rx Last Taken Unknown] prednisone 20 mg tablet 40 mg (2 x 20 mg) PO DAILY 7 days #14 tabs 12/03/22 [Rx Last Taken Unknown] oxycodone-acetaminophen 5 mg-325 mg tablet (Percocet) 1 tab PO Q6H PRN pain 4 days #14 tabs 06/01/23 [Rx Last Taken Unknown] Allergy/AdvReac Type Severity Reaction Status Date / Time cephalexin monohydrate Allergy Chest Verified 06/02/23 08:53 [From Keflex] tightness Surgical History H/O bilateral salpingectomy History of herniorrhaphy Hx of cholecystectomy Hx of tonsillectomy Social History adopted: Yes household members: family housing: house Smoking Status: Former smoker alcohol intake: never substance use type: does not use ROS Constitutional Constitutional: Reports chills, fatigue, fever(s), malaise and weakness; Denies anorexia Eyes Eyes: Denies change in vision ENT HEENT: Denies dysphagia, headache(s), loss taste/smell, sore throat or throat swelling Cardiovascular Cardiovascular: Reports palpitations; Denies chest pain, claudication, edema or paroxysmal nocturnal dyspnea Respiratory/Chest Respiratory/Chest: Reports cough, shortness of breath at rest and shortness of breath with exertion; Denies wheezing Gastrointestinal Gastrointestinal: Reports nausea; Denies abdominal pain, constipation, diarrhea or vomiting Genitourinary Genitourinary: Denies nocturia Musculoskeletal Musculoskeletal: Denies back pain, joint pain, joint stiffness or muscle weakness Integumentary Integumentary: Denies dry skin or jaundice Neurologic Neurologic: Denies confusion or focal weakness Physical Exam Narrative General alert oriented in no acute distress HEENT. Normocephalic atraumatic, pupils equal and reactive Respiratory reduced air entry bilaterally worse on the right, no wheezing Cardiac S1-S2, regular rate and rhythm GI abdomen soft and nontender MSK no lower extremity edema Skin no rashes Neuro moves all extremities, no dysarthria, no facial droop Lab / Micro Data 06/08/23 08:45 06/08/23 04:09 Labs: Laboratory Results - last 24 hr 06/07/23 : Fluid Source PLEURAL FLUID, Fluid Color YELLOW, Fluid Appearance SL CLDY, Fluid WBC 1.132, Fluid RBC 471, Fluid Tot Cell Count 1.132 H, Fld Polynuclear WBCs # 1.052, Fld Polynuclear WBCs % 92.9, Fluid Mononuclear WBCs 0.080, Fld Mononuclear WBCs % 7.1, Fl Pathologist Comment May follow, Fluid Glucose 80 H, Fluid Total Protein 4.1, Fluid LDH 3968, Fluid Comment 2 SEE COMMENT, Miscellaneous Cytology SEE PATHOLOGY REPORT 06/08/23 04:09: Sodium 142, Potassium 3.5, Chloride 97 L, Carbon Dioxide 44.0 H, Anion Gap 1 L, BUN 38 H, Creatinine 0.45 L, Estim Creat Clear Calc 47.14, Est GFR (MDRD) Af Amer 180, Est GFR (MDRD) Non-Af 149, BUN/Creatinine Ratio 85.0 H, Glucose 142 H, Calcium 8.6, Magnesium 2.7 H, Lactate Dehydrogenase 212 06/08/23 08:45: WBC 21.8 H, RBC 3.46 L, Hgb 9.8 L, Hct 31.8 L, MCV 91.9, MCH 28.3, MCHC 30.8 L, RDW Std Deviation 42.2, RDW Coeff of Laly 12.7, Plt Count 351, MPV 10.4, Immature Gran % (Auto) 2.100 H, Neut % (Auto) 87.6 H, Lymph % (Auto) 5.5 L, Clarke % (Auto) 4.2, Eos % (Auto) 0.2, Baso % (Auto) 0.4, Absolute Neuts (auto) 19.1 H, Absolute Lymphs (auto) 1.20, Nucleated RBC % 0 Micro: Microbiology 06/07/23 Unknown Fluid - Pleural (Lung) Gram Stain - Final 06/08/23 10:15 Stool Stool Occult Blood (ROSAURA) - Final Occult Blood Positive Rhythm Strip Rhythm Strip: Sinus Tach Rate: 120 Ectopy: None Assessment & Plan Assessment/Plan (1) COPD with acute exacerbation: (2) GI bleed: QUALIFIERS: GI bleed type/associated pathology: unspecified gastrointestinal hemorrhage type Qualified Code(s): K92.2 - Gastrointestinal hemorrhage, unspecified PLAN: Plan Assessment The patient has a known history of COPD and chronic hypoxemic respiratory failure with a baseline 3 L/min oxygen requirement. The patient appears to be in a state of exacerbation secondary to right lower lobe pneumonia. She underwent thoracentesis. She currently has what is believed to be an acute upper GI bleed. She will undergo an upper endoscopy to evaluate upper GI tract. She was explained alternatives, risk, benefits include not withstanding bleeding, infection, sepsis, perforation, need for emergent surgery and . She will have an ASA of 3. Charges/Coding Visit Charges Inpatient E&M: 25417 Init Hosp L3
[2023-06-08] MEDS: Montelukast 10 MG Tablet PO (21:21)
[2023-06-08] MEDS: MELATONIN 10 MG TABLET PO (21:21)
[2023-06-08 21:47] LABS: Hematocrit 30.3 % (37-47); Hemoglobin 9.2 g/dL (12.0-15.0)
[2023-06-09] VITALS (18 sets, daily range): BP systolic 107–139; BP diastolic 51–85; PULSE 74–91; RESP 12–36; TEMP 35.9–37.1; O2SAT 93–100
[2023-06-09] MEDS: 0.9% Saline Lock 10 ML Syringe IV ×3 (03:34→10:47)
[2023-06-09 04:10] LABS: Absolute Lymphocyte Count 2.09 X10^3/uL (0.83-4.51); Basophil# 0.04 X10^3/uL; Basophil% 0.3 % (0-1); Eosinophil# 0.21 X10^3/uL; Eosinophils% 1.4 % (0-5); Hemoglobin 8.2 g/dL (12.0-15.0); Lymphocyte # 2.09 X10^3/ul (0.83-4.51); Lymphocyte % 13.9 % (19-41); Mean Corp Hgb Conc 30.4 g/dL (32-36); Mean Corpuscular Hgb 28.1 pg (27.0-32.0); Mean Corpuscular Volume 92.5 fL (81-99); Mean Platelet Vol. 10.4 fl (6.2-12.0); Monocyte# 1.29 X10^3/uL; Monocyte% 8.6 % (0-10); NRBC Flagged by Analyzer 0 % (0-5); Neutrophil # 10.98 X10^3/uL (2.7-7.7); Neutrophil % 72.7 % (47-70); Platelet Count 350 K/mm3 (150-450); RBC Distribution Width CV 12.9 % (11.6-14.6); RBC Distribution Width SD 43.1 fl (35.1-43.9); Red Blood Count 2.92 M/mm3 (4.2-5.4); White Blood Count 15.1 K/mm3 (4.4-11.0)
[2023-06-09 04:22] LABS: Anion Gap 1 (5-15); BUN 30 mg/dL (7-18); BUN/Creat Ratio 75.6 RATIO (10-20); Chloride 100 mmol/L (98-107); EST Glomerular Filtration Rate 171 mL/min (>60); Est Glom Filt Rate - Afr Amer 207 mL/min (>60); Estimated Creatinine Clearance 47.14 ml/min; Glucose 89 mg/dL (74-106); Magnesium 2.6 mg/dL (1.6-2.6); Potassium 3.5 mmol/L (3.5-5.1); Sodium Level 143 mmol/L (136-145)
[2023-06-09] MEDS: Meropenem 1 GM in 0.9% Normal Saline (100mL MB+) 100 ML IV ×3 (05:05→21:16)
[2023-06-09 05:35] LABS: International Normalized Ratio 1.1; Prothrombin Time (Protime)PT. 14.4 SECONDS (11.7-14.9)
[2023-06-09 05:37] LABS: Partial Thromboplast Time 26.4 Seconds (24.1-36.2)
[2023-06-09] MEDS: Ipratropium/Albuterol Sulfate 3 ML AMPUL.NEB INHALATION ×4 (07:23→22:30)
[2023-06-09] MEDS: Lactated Ringers 1,000 ML 15 ML IV (09:15)
[2023-06-09] MEDS: 0.9% Normal Saline (Pres. free 10 ML Vial ×2 (10:40→10:59)
[2023-06-09] MEDS: Epinephrine (1 mg/ml) 1 MG/ML VIAL ×2 (10:40→10:59)
[2023-06-09 10:42] LABS: Pathologist Comment/Body Fluid Reviewed
--- NOTE | 2023-06-09 11:13 | OP.EGD_ITS ---
Patient Name: Cristiana Perdomo Procedure Date: 06/09/2023 10:13 AM Date of : 1955 Age: 68 Procedure: Upper GI endoscopy Indications: Melena Providers: Ramon Antunez DO Medicines: Monitored Anesthesia Care Patient Profile: This is a 68 year old female. Refer to note in patient chart for documentation of history and physical. Patient has symptoms of acute epigastric abdominal pain. Complications: No immediate complications. Procedure: Pre-Anesthesia Assessment: - Prior to the procedure, a History and Physical was performed, and patient medications and allergies were reviewed. The patient is competent. The risks and benefits of the procedure and the sedation options and risks were discussed with the patient. All questions were answered and informed consent was obtained. Patient identification and proposed procedure were verified by the physician in the pre-procedure area. Mental Status Examination: alert and oriented. Airway Examination: normal oropharyngeal airway and neck mobility. Respiratory Examination: clear to auscultation. CV Examination: normal. Prophylactic Antibiotics: The patient does not require prophylactic antibiotics. Prior Anticoagulants: The patient has taken no anticoagulant or antiplatelet agents. ASA Grade Assessment: II - A patient with mild systemic disease. After reviewing the risks and benefits, the patient was deemed in satisfactory condition to undergo the procedure. The anesthesia plan was to use monitored anesthesia care (MAC). Immediately prior to administration of medications, the patient was re-assessed for adequacy to receive sedatives. The heart rate, respiratory rate, oxygen saturations, blood pressure, adequacy of pulmonary ventilation, and response to care were monitored throughout the procedure. The physical status of the patient was re-assessed after the procedure. After obtaining informed consent, the endoscope was passed under direct vision. Throughout the procedure, the patient's blood pressure, pulse, and oxygen saturations were monitored continuously. The Endoscope was introduced through the mouth, and advanced to the second part of duodenum. The upper GI endoscopy was accomplished without difficulty. The patient tolerated the procedure well. Scope In: 10:32:45 AM Scope Out: 11:03:23 AM Total Procedure Duration Time 0 hours 30 minutes 37 seconds Findings: LA Grade A (one or more mucosal breaks less than 5 mm, not extending between tops of 2 mucosal folds) esophagitis with no bleeding was found 30 to 35 cm from the incisors. A medium-sized hiatal hernia was present. Two non-bleeding linear gastric ulcers with no stigmata of bleeding were found at the pylorus. The largest lesion was 4 mm in largest dimension. One oozing cratered duodenal ulcer with a visible vessel was found in the duodenal bulb. The lesion was 30 mm in largest dimension. Area was successfully injected with 20 mL of a 0.1 mg/mL solution of epinephrine for drug delivery. Coagulation for hemostasis using argon plasma at 0.3 liters/minute and 30 arnold was successful. To prevent bleeding post-intervention, two hemostatic clips were successfully placed. Clip data security administrator: [employer]. There was no bleeding at the end of the procedure. Many non-bleeding linear duodenal ulcers with no stigmata of bleeding were found in the first portion of the duodenum. The largest lesion was 4 mm in largest dimension. Area was successfully injected with 5 mL of a 0.1 mg/mL solution of epinephrine for drug delivery. Coagulation for bleeding prevention using heater probe was successful. Estimated blood loss was minimal. Impression: - LA Grade A erosive esophagitis with no bleeding. - Medium-sized hiatal hernia. - Non-bleeding gastric ulcers with no stigmata of bleeding. - Oozing duodenal ulcer with a visible vessel. Injected. Treated with argon plasma coagulation (APC). Clips were placed. Clip data security administrator: [employer]. - Non-bleeding duodenal ulcers with no stigmata of bleeding. Injected. Treated with a heater probe. - No specimens collected. Recommendation: - [facility]. - Clear liquid diet today. - Continue present medications. - Repeat upper endoscopy to check healing. Procedure Code(s): --- Professional --- 50860, Esophagogastroduodenoscopy, flexible, transoral; with control of bleeding, any method 24606, 59,51, Esophagogastroduodenoscopy, flexible, transoral; with directed submucosal injection(s), any substance CPT copyright 2021 [employer]. All rights reserved. The codes documented in this report are preliminary and upon engraving patternmaker review may be revised to meet current compliance requirements. Ramon Antunez DO 06/09/2023 11:13:34 AM This report has been signed electronically. Number of Addenda: 0 Note Initiated On: 06/09/2023 10:13 AM
--- NOTE | 2023-06-09 11:14 | OP.CCLET_ITS ---
06/09/2023 Julio Draper [address] [place] [address] Re : Upper GI endoscopy procedure for Cristiana Hendersonkler Dear Dr. Draper This procedure was performed on June. My impressions and recommendations are as follows: Impressions : - LA Grade A erosive esophagitis with no bleeding. - Medium-sized hiatal hernia. - Non-bleeding gastric ulcers with no stigmata of bleeding. - Oozing duodenal ulcer with a visible vessel. Injected. Treated with argon plasma coagulation (APC). Clips were placed. Clip personalized living assistant: [employer] - Non-bleeding duodenal ulcers with no stigmata of bleeding. Injected. Treated with a heater probe. - No specimens collected. Recommendations : - [facility]. - Clear liquid diet today. - Continue present medications. - Repeat upper endoscopy to check healing. My findings are described in the full procedure note, which is enclosed. If I can be of further assistance, please feel free to contact me at . Sincerely, Ramon Antunez, 06/09/2023 11:13:34 AM This report has been signed electronically.
--- NOTE | 2023-06-09 11:40 | PCM.PN.INT ---
Assessment & Plan Assessment/Plan (1) COPD with acute exacerbation: PLAN: Plan Assessment Acute on chronic hypoxic respiratory failure with hypercapnia (ABG on admission showed pH of 7.25 and PCO2 of 60) Right pleural effusion exudative and neutrophilic predominant likely related to pneumonia Acute blood loss anemia likely secondary to GI bleed COPD exacerbation Sepsis secondary to right lower lobe pneumonia History of tobacco use (~[id number] )quit 10 years ago Abnormal chest CT A fib Plan -Resp status appears to be back to baseline at 3L NC. Follow up CXR is ordered for tomorrow to follow up for any recurrence of R pleural effusion. - She had a total of 460 C of cloudy jose pleural fluid removed on 06/07. analysis is consistent with neutrophil predominant exudative fluid likely 2/2 infection. LDH very shelia at 3968. Cultures are negative to date . will repeat chest x-ray monitor for recurrence. If indeed she does have recurrence and given the appearance of pleural effusion on ultrasound with septations noted she will likely need a chest tube with tPA dornase or VATs and thus will require transfer. - She developed melena and has had multiple dark bowel movements. Her Eliquis has been on hold since 06/07 as she was undergoing thoracentesis. will continue to hold eliquis. Her hemoglobin has dropped 3g. No transfusions given so far ? Cont Protonix IV twice daily. Consulted GI, noted plan for EGD today ?Cont p.o. prednisone taper. Continue scheduled DuoNebs ?Continue to follow cultures. She remains on Merrem. She will likely require at least 2 to 3 weeks of antibiotics given her scan findings and development of exudative effusion. -Viral panel is negative. Legionella urine antigen is negative. MRSA swab is negative. -Discussed chest CT scan findings with the patient. We discussed that she will need repeat CT scan in 6 to 8 weeks to ensure resolution. -Patient quit smoking 10 years ago. Encouraged to continue smoking cessation. -PT OT -DVT prophylaxis SCDs Subjective Subjective Report that she continues to feel better. She is back to her baseline at 3L NC. Going to EGD this AM Objective Data Objective Data Vital Signs: Vital Signs Temp Pulse Resp BP Pulse Ox O2 Del Method O2 Flow Rate 36.9 C 90 28 H 131/52 H 94 Nasal Cannula 3 06/09/23 11:24 06/09/23 11:24 06/09/23 11:24 06/09/23 11:24 06/09/23 11:24 06/09/23 11:24 06/09/23 11:24 FiO2 45 06/08/23 23:01 Oxygen Flow Rate (L/min) 3 Oxygen Delivery Method Nasal Cannula Weight: 71.1 kg Body Mass Index (BMI) 26.9 Intake & Output: Intake and Output for Last 24 Hours 06/07/23 06/08/23 06/09/23 23:59 23:59 23:59 Intake Total 2046.75 / 2046.75 998.00 / 998.00 1361 / 1361 Output Total 3320 / 3320 950 / 1350 650 / 650 Balance -1273.25 / -1273.25 48.00 / -352.00 711 / 711 Lab / Micro Data 06/09/23 03:36 06/09/23 03:36 Labs: Laboratory Results - last 24 hr 06/07/23 : Fl Pathologist Comment Reviewed, Miscellaneous Cytology SEE PATHOLOGY REPORT 06/08/23 21:42: Hgb 9.2 L, Hct 30.3 L 06/09/23 03:36: WBC 15.1 H, RBC 2.92 L, Hgb 8.2 L, Hct 27.0 L, MCV 92.5, MCH 28.1, MCHC 30.4 L, RDW Std Deviation 43.1, RDW Coeff of Laly 12.9, Plt Count 350, MPV 10.4, Immature Gran % (Auto) 3.100 H, Neut % (Auto) 72.7 H, Lymph % (Auto) 13.9 L, [place] % (Auto) 8.6, Eos % (Auto) 1.4, Baso % (Auto) 0.3, Absolute Neuts (auto) 11.0 H, Absolute Lymphs (auto) 2.09, Nucleated RBC % 0, Sodium 143, Potassium 3.5, Chloride 100, Carbon Dioxide 42.0 H, Anion Gap 1 L, BUN 30 H, Creatinine 0.40 L, Estim Creat Clear Calc 47.14, Est GFR (MDRD) Af Amer 207, Est GFR (MDRD) Non-Af 171, BUN/Creatinine Ratio 75.6 H, Glucose 89, Calcium 8.0 L, Magnesium 2.6 06/09/23 05:08: PT 14.4, INR 1.1, APTT 26.4 Micro: Microbiology 06/07/23 Unknown Fluid - Pleural (Lung) Gram Stain - Final 06/08/23 10:15 Stool Stool Occult Blood (ROSAURA) - Final Occult Blood Positive 06/02/23 10:47 Blood Culture (Wb) - Right Hand Blood Culture - Final No growth in 5 days. 06/02/23 09:26 Blood Culture (Wb) - Left Hand Blood Culture - Final No growth in 5 days. 06/02/23 10:34 Urine, Catheterized Urine Culture - Final Culture exhibits no growth. 06/03/23 09:15 Mucosa - Nose Coronavirus COVID-19 PCR - Final 06/02/23 10:34 Urine, Random Legionella Antigen - Final 06/02/23 10:34 Urine, Random Streptococcus pneumoniae Antigen (M - Final 06/02/23 11:22 Mucosa - Nasopharyngeal Respiratory Panel (PCR) - Final Rhythm Strip Rhythm Strip: Sinus Tach Rate: 120 Ectopy: None Physical Exam Narrative General alert oriented in no acute distress HEENT. Normocephalic atraumatic, pupils equal and reactive Respiratory reduced air entry bilaterally , no wheezing Cardiac S1-S2, regular rate and rhythm GI abdomen soft and nontender MSK no lower extremity edema Skin no rashes Neuro moves all extremities, no dysarthria, no facial droop Charges/Coding Visit Charges Inpatient E&M: 99963 Subs Hosp L3
[2023-06-09] MEDS: Pantoprazole Sodium 40 MG in 0.9% Normal Saline (100mL MB+) 100 ML 330 MG IV ×2 (12:21→21:20)
[2023-06-09] MEDS: predniSONE 20 MG Tablet 40 MG PO (12:34)
[2023-06-09] MEDS: Metoprolol Tartrate 25 MG Tablet PO ×2 (12:35→21:14)
[2023-06-09] MEDS: busPIRone 5 MG Tablet 10 MG PO ×2 (12:35→21:15)
--- NOTE | 2023-06-09 17:59 | PCM.PN.HOSP ---
Reason for Visit Reason for Visit: Diagnoses Pneumonia, unspecified organism (06/02/23) Chronic obstructive pulmonary disease with (acute) exacerbation (06/02/23) Pleural effusion in other conditions classified elsewhere (06/02/23) Gastrointestinal hemorrhage, unspecified (06/02/23) Subjective Subjective Patient was seen and examined today, she underwent an EGD which showed duodenal ulcers and erosive esophagitis. Patient's hemoglobin this morning was 8.2, she remains on 3 L of oxygen via nasal cannula. Objective Data Objective Data Vital Signs: Vital Signs Temp Pulse Resp BP Pulse Ox O2 Del Method O2 Flow Rate 96.9 F L 74 19 H 135/58 H 94 Nasal Cannula 3 06/09/23 16:00 06/09/23 16:00 06/09/23 16:00 06/09/23 16:00 06/09/23 16:00 06/09/23 16:00 06/09/23 16:00 FiO2 45 06/08/23 23:01 Oxygen Flow Rate (L/min) 3 Oxygen Delivery Method Nasal Cannula Weight: 71.1 kg Body Mass Index (BMI) 26.9 Intake & Output: Intake and Output for Last 24 Hours 06/07/23 06/08/23 06/09/23 23:59 23:59 23:59 Intake Total 2046.75 / 2046.75 998.00 / 998.00 1471 / 1471 Output Total 3320 / 3320 950 / 1350 1050 / 1050 Balance -1273.25 / -1273.25 48.00 / -352.00 421 / 421 Lab / Micro Data 06/09/23 03:36 06/09/23 03:36 Labs: Laboratory Results - last 24 hr 06/07/23 : Fl Pathologist Comment Reviewed 06/08/23 21:42: Hgb 9.2 L, Hct 30.3 L 06/09/23 03:36: WBC 15.1 H, RBC 2.92 L, Hgb 8.2 L, Hct 27.0 L, MCV 92.5, MCH 28.1, MCHC 30.4 L, RDW Std Deviation 43.1, RDW Coeff of Laly 12.9, Plt Count 350, MPV 10.4, Immature Gran % (Auto) 3.100 H, Neut % (Auto) 72.7 H, Lymph % (Auto) 13.9 L, [place] % (Auto) 8.6, Eos % (Auto) 1.4, Baso % (Auto) 0.3, Absolute Neuts (auto) 11.0 H, Absolute Lymphs (auto) 2.09, Nucleated RBC % 0, Sodium 143, Potassium 3.5, Chloride 100, Carbon Dioxide 42.0 H, Anion Gap 1 L, BUN 30 H, Creatinine 0.40 L, Estim Creat Clear Calc 47.14, Est GFR (MDRD) Af Amer 207, Est GFR (MDRD) Non-Af 171, BUN/Creatinine Ratio 75.6 H, Glucose 89, Calcium 8.0 L, Magnesium 2.6 06/09/23 05:08: PT 14.4, INR 1.1, APTT 26.4 Micro: Microbiology 06/07/23 Unknown Fluid - Pleural (Lung) Gram Stain - Final 06/08/23 10:15 Stool Stool Occult Blood (ROSAURA) - Final Occult Blood Positive 06/02/23 10:47 Blood Culture (Wb) - Right Hand Blood Culture - Final No growth in 5 days. 06/02/23 09:26 Blood Culture (Wb) - Left Hand Blood Culture - Final No growth in 5 days. 06/02/23 10:34 Urine, Catheterized Urine Culture - Final Culture exhibits no growth. 06/03/23 09:15 Mucosa - Nose Coronavirus COVID-19 PCR - Final 06/02/23 10:34 Urine, Random Legionella Antigen - Final 06/02/23 10:34 Urine, Random Streptococcus pneumoniae Antigen (M - Final 06/02/23 11:22 Mucosa - Nasopharyngeal Respiratory Panel (PCR) - Final Rhythm Strip Rhythm Strip: Sinus Tach Rate: 120 Ectopy: None Physical Exam Narrative alert and no apparent distress Constitutional Narrative: Patient appears older than her stated age General Appearance: cooperative, well kempt and well developed Orientation / Consciousness: awake, oriented to person and oriented to place HEENT normocephalic, head/scalp atraumatic and moist oral mucous membranes Eyes PERRL, EOMs intact bilaterally and conjunctivae normal Neck supple, no JVD, thyroid normal and no carotid bruits General: trachea midline Resp normal respiratory effort, no retractions and no use of accessory muscles Resp Narrative: Breath sounds are distant bilaterally Auscultation: Negative for rales, rhonchi or wheezes Cardio regular rate, regular rhythm, S1 normal heart sound, S2 normal heart sound, no murmurs, no rub and no gallops GI normal to inspection, nondistended, normoactive bowel sounds, soft to palpation, non-tender and non-distended Extremity no clubbing, cyanosis or edema Skin no rashes or lesions noted General Skin Exam: no breakdown Neuro CN's II-XII intact bilaterally, moves all extremities, no focal motor deficits and no sensory deficits noted Sensorium / Orientation: awake, alert, oriented to person and oriented to place Speech: speech normal Psych affect normal Assessment & Plan Assessment/Plan (1) GI bleed: QUALIFIERS: GI bleed type/associated pathology: unspecified gastrointestinal hemorrhage type Qualified Code(s): K92.2 - Gastrointestinal hemorrhage, unspecified (2) Community acquired pneumonia of right lower lobe of lung: PLAN: Plan 1. Sepsis secondary to right lower lobe community-acquired pneumonia-patient will continue on IV antibiotics, pulmonary medicine is participating in her care #2 acute on chronic combined respiratory failure secondary to chronic obstructive pulmonary disease and pneumonia-patient is currently on 5 L via nasal cannula, her home oxygen requirement appears to be 3 L/min, continue aerosol treatments, IV steroids and antibiotics #3 acute anemia secondary to acute upper GI bleed from duodenal ulcers and erosive esophagitis-patient remains on a PPI at this time, recheck labs tomorrow #4 chronic obstructive pulmonary disease-complicates care, medical course, recovery, and prognosis Total clinical time spent by myself addressing the patient's medical issues, reviewing all of her data, and collaborating with patient's care team: 35 minutes Charges/Coding Visit Charges Inpatient E&M: 98795 Subs Hosp L2
[2023-06-09] MEDS: Montelukast 10 MG Tablet PO (21:14)
[2023-06-09] MEDS: MELATONIN 10 MG TABLET PO (21:16)
[2023-06-10] VITALS (14 sets, daily range): BP systolic 113–137; BP diastolic 50–74; PULSE 68–79; RESP 16–24; TEMP 36.1–37; O2SAT 3–99
[2023-06-10] MEDS: Ipratropium/Albuterol Sulfate 3 ML AMPUL.NEB INHALATION ×6 (02:10→23:28)
[2023-06-10] MEDS: Meropenem 1 GM in 0.9% Normal Saline (100mL MB+) 100 ML IV ×3 (05:02→20:51)
--- NOTE | 2023-06-10 05:15 | RAD_ITS ---
STUDY: X-RAY CHEST REASON FOR EXAM: Female, 68 years old. R pleural effusion TECHNIQUE: Single AP portable view of the chest. COMPARISON: June 07, 2023 FINDINGS: There are monitoring and support devices. There is worsening right mid and lower lung airspace consolidation. There is worsening moderate right pleural effusion. Normal size heart. Normal mediastinum and katelyn. Normal visualized pulmonary arteries. There is atherosclerotic calcification of the aortic arch with tortuosity. Normal visualized thoracic spine. There is right shoulder replacement. There is no demonstrated abnormality of the visualized soft tissue structures of the upper abdomen. RAD/Chest 1 View (Portable) IMPRESSION: Worsening right infiltrate and pleural effusion. Electronically Signed: Mikael Slaughter MD at 9:12 EST ,
[2023-06-10 05:16] LABS: Absolute Lymphocyte Count 2.55 X10^3/uL (0.83-4.51); Absolute Neutrophil Count 10.4 X10^3/uL (2.0-7.7); Basophil# 0.02 X10^3/uL; Basophil% 0.1 % (0-1); Eosinophil# 0.24 X10^3/uL; Eosinophils% 1.6 % (0-5); Hematocrit 24.6 % (37-47); Hemoglobin 7.9 g/dL (12.0-15.0); Lymphocyte # 2.55 X10^3/ul (0.83-4.51); Lymphocyte % 17.4 % (19-41); Mean Corp Hgb Conc 32.1 g/dL (32-36); Mean Corpuscular Hgb 29.4 pg (27.0-32.0); Mean Corpuscular Volume 91.4 fL (81-99); Mean Platelet Vol. 10.2 fl (6.2-12.0); Monocyte# 1.06 X10^3/uL; Monocyte% 7.2 % (0-10); NRBC Flagged by Analyzer 0 % (0-5); Platelet Count 344 K/mm3 (150-450); RBC Distribution Width CV 12.9 % (11.6-14.6); RBC Distribution Width SD 42.3 fl (35.1-43.9); Red Blood Count 2.69 M/mm3 (4.2-5.4); White Blood Count 14.7 K/mm3 (4.4-11.0)
[2023-06-10 05:25] LABS: Ionized Calcium 4.59 mg/dL (4.36-5.20)
[2023-06-10 05:42] LABS: Anion Gap -1 (5-15); BUN 23 mg/dL (7-18); BUN/Creat Ratio 48.2 RATIO (10-20); Calcium,Total 7.7 mg/dL (8.5-10.1); Chloride 101 mmol/L (98-107); Creatinine, Serum 0.48 mg/dL (0.55-1.02); EST Glomerular Filtration Rate 138 mL/min (>60); Est Glom Filt Rate - Afr Amer 167 mL/min (>60); Estimated Creatinine Clearance 47.14 ml/min; Glucose 86 mg/dL (74-106); Magnesium 2.5 mg/dL (1.6-2.6); Potassium 3.7 mmol/L (3.5-5.1); Sodium Level 140 mmol/L (136-145)
--- NOTE | 2023-06-10 08:21 | PCM.PN.INT ---
Assessment & Plan Assessment/Plan (1) COPD with acute exacerbation: PLAN: Plan RECOMMENDATIONS: 1. Continue nasal cannula oxygen. Wean FiO2 for saturations greater than 90%. 2. Continue scheduled BuSpar and bronchodilator therapy. 3. Continue scheduled antibiotics to complete a 10-day course. 4. Wean prednisone over the next 12 to 14 days 5. Probable repeat thoracentesis on Tuesday. Continue to hold Eliquis until thoracentesis 6. Okay to leave the intensive care unit from my perspective IMPRESSIONS: 1. Acute and chronic respiratory failure with hypoxemia and hypercapnia secondary to COPD with exacerbation The patient has a known history of COPD and chronic hypoxemic respiratory failure with a baseline 3 L/min oxygen requirement. She is followed regularly by Dr. Jasmine Evangelista at [facility] pulmonary medicine. The patient appears to be in a state of exacerbation secondary to right lower lobe pneumonia complicated by parapneumonic effusion. Chest x-ray this morning does show some increase in effusion. She did have evidence of acute CO2 retention in the emergency department and was initiated on appropriate noninvasive positive pressure ventilatory support. Patient likely will require 10 days of antibiotics given parapneumonic effusion 2. Sepsis The patient presented to the hospital with sepsis due to probable right lower lobe pneumonia with acute sepsis related organ dysfunction as evidenced by no need for noninvasive positive pressure ventilatory support. The patient has been fluid resuscitated with appropriate response hemodynamically. Cultures are pending. Plan to continue empiric broad-spectrum antimicrobials to complete 10 days. Antigen testing and viral panels were unremarkable. 3. Upper GI bleed secondary to grade a erosive esophagitis, hiatal hernia and duodenal ulcer with visible vessel Hemoglobin appears to be stable today. Patient is doing well on the current therapy. Okay to advance diet from my perspective. Patient may require a repeat endoscopy in the future following discharge. Continue PPI twice daily 4. History of seasonal allergic rhinitis/history of tobacco dependency, in remission Complicates care, management, recovery and prognosis. Continue home medications as indicated. Subjective Subjective Patient did okay overnight. Patient did not have any acute issues and has remained on her baseline oxygen. Patient does report that she has a sensation of fullness in her right chest, but is comfortable sitting in the chair. Objective Data Objective Data Vital Signs: Vital Signs Temp Pulse Resp BP Pulse Ox O2 Del Method O2 Flow Rate 36.6 C 74 18 113/50 L 93 Nasal Cannula 3 06/10/23 04:00 06/10/23 07:08 06/10/23 07:08 06/10/23 04:00 06/10/23 07:08 06/10/23 07:08 06/10/23 07:08 FiO2 45 06/09/23 23:00 Oxygen Flow Rate (L/min) 3 Oxygen Delivery Method Nasal Cannula Weight: 71.1 kg Body Mass Index (BMI) 26.9 Intake & Output: Intake and Output for Last 24 Hours 06/08/23 06/09/23 06/10/23 23:59 23:59 23:59 Intake Total 998.00 / 998.00 1701 / 2081 650 / 650 Output Total 950 / 1350 1050 / 1800 1050 / 1050 Balance 48.00 / -352.00 651 / 281 -400 / -400 Lab / Micro Data Attestation: I reviewed the patient's lab results. 06/10/23 05:00 06/10/23 05:00 Labs: Laboratory Results - last 24 hr 06/07/23 : Fl Pathologist Comment Reviewed 06/10/23 05:00: WBC 14.7 H, RBC 2.69 L, Hgb 7.9 L, Hct 24.6 L, MCV 91.4, MCH 29.4, MCHC 32.1 D, RDW Std Deviation 42.3, RDW Coeff of Laly 12.9, Plt Count 344, MPV 10.2, Immature Gran % (Auto) 2.700 H, Neut % (Auto) 71.0 H, Lymph % (Auto) 17.4 L, [place] % (Auto) 7.2, Eos % (Auto) 1.6, Baso % (Auto) 0.1, Absolute Neuts (auto) 10.4 H, Absolute Lymphs (auto) 2.55, Nucleated RBC % 0, Sodium 140, Potassium 3.7, Chloride 101, Carbon Dioxide 40.0 H, Anion Gap -1 L, BUN 23 H, Creatinine 0.48 L, Estim Creat Clear Calc 47.14, Est GFR (MDRD) Af Amer 167, Est GFR (MDRD) Non-Af 138, BUN/Creatinine Ratio 48.2 H, Glucose 86, Calcium 7.7 L, Magnesium 2.5 06/10/23 05:22: Ionized Calcium 4.59 Micro: Microbiology 06/07/23 Unknown Fluid - Pleural (Lung) Gram Stain - Final 06/07/23 Unknown Fluid - Pleural (Lung) Anaerobic Culture - Preliminary No growth in 48 hours. 06/08/23 10:15 Stool Stool Occult Blood (ROSAURA) - Final Occult Blood Positive 06/02/23 10:47 Blood Culture (Wb) - Right Hand Blood Culture - Final No growth in 5 days. 06/02/23 09:26 Blood Culture (Wb) - Left Hand Blood Culture - Final No growth in 5 days. 06/02/23 10:34 Urine, Catheterized Urine Culture - Final Culture exhibits no growth. 06/03/23 09:15 Mucosa - Nose Coronavirus COVID-19 PCR - Final 06/02/23 10:34 Urine, Random Legionella Antigen - Final 06/02/23 10:34 Urine, Random Streptococcus pneumoniae Antigen (M - Final 06/02/23 11:22 Mucosa - Nasopharyngeal Respiratory Panel (PCR) - Final Rhythm Strip Rhythm Strip: Sinus Rhythm Rate: 68 Ectopy: None Physical Exam Const alert, oriented x3 and no apparent distress Constitutional Narrative: Sitting in bedside recliner. No conversational dyspnea noted General Appearance: cooperative HEENT normocephalic and head/scalp atraumatic Eyes PERRL, EOMs intact bilaterally and conjunctivae normal Neck supple General: trachea midline Chest inspection of chest normal Resp Resp Narrative: Slowly improving air movement throughout all lung zepeda Auscultation: diminished lung sounds diffuse; Negative for rales, rhonchi or wheezes Percussion: dullness Lower: right Cardio regular rate, regular rhythm, S1 normal heart sound and S2 normal heart sound GI normal to inspection, nondistended, normoactive bowel sounds Extremity no clubbing, cyanosis or edema Skin no rashes or lesions noted Neuro CN's II-XII intact bilaterally, moves all extremities and no focal motor deficits Psych cooperative Mood & Affect: anxious Charges/Coding Visit Charges Inpatient E&M: 82516 Subs Hosp L3
[2023-06-10] MEDS: busPIRone 5 MG Tablet 10 MG PO ×2 (08:49→21:11)
[2023-06-10] MEDS: predniSONE 20 MG Tablet 40 MG PO (08:50)
[2023-06-10] MEDS: Metoprolol Tartrate 25 MG Tablet PO ×2 (08:50→21:11)
--- NOTE | 2023-06-10 10:13 | CASEMGMT ---
Social Work SW met w/pt in room in regard to discharge plan. Pt is undecided as to what to do, go home w/home health vs. a SNF. Pt called her daughter to check in w/her, SW also spoke w/daughter on the phone. Daughter is in support of whatever is recommended. SW reached out to physician, awaiting response. MERY Orozco
[2023-06-10] MEDS: Pantoprazole Sodium 40 MG in 0.9% Normal Saline (100mL MB+) 100 ML 330 MG IV ×2 (10:18→21:00)
--- NOTE | 2023-06-10 10:26 | CASEMGMT ---
Discharge Planning A list of?SNF providers including quality and resource use data and consistent with the patient's preferred geographic region, medical needs, and insurance network was created in [employer] Guide.? This list was provided to the SW. Bhavana Ignacio Discharge Planning Asst.
--- NOTE | 2023-06-10 10:57 | CASEMGMT ---
Social Work It is anticipated pt will be here through the weekend. SW spoke w/pt again, let her know it it anticipated she will be here through the weekend. SW gave pt the SNF list from [facility] provided by the discharge senior planning analyst Bhavana. SW asked her to review the list w/her daughter in the event SNF is needed, and pick out a couple of options. Pt states understanding. SW explained has not spoken with the doctor but it is anticipated she will be here through the weekend, so SW will follow up on Tuesday. MERY Orozco
--- NOTE | 2023-06-10 12:49 | PN.HOSP_ITS ---
Reason for Visit Reason for Visit: Diagnoses Pneumonia, unspecified organism (06/02/23) Chronic obstructive pulmonary disease with (acute) exacerbation (06/02/23) Pleural effusion in other conditions classified elsewhere (06/02/23) Gastrointestinal hemorrhage, unspecified (06/02/23) Subjective Subjective Seen and examined today, she remains on 3 L of nasal cannula oxygen. Patient had an EGD done yesterday which showed nonbleeding ulcers in the stomach, erosive esophagitis with no bleeding, an oozing duodenal ulcer with a visible vessel and nonbleeding duodenal ulcers. Objective Data Objective Data Vital Signs: Vital Signs Temp Pulse Resp BP Pulse Ox O2 Del Method O2 Flow Rate 97.3 F L 69 20 H 128/74 H 92 Nasal Cannula 3 06/10/23 08:00 06/10/23 11:09 06/10/23 11:09 06/10/23 08:50 06/10/23 08:00 06/10/23 08:00 06/10/23 08:00 FiO2 45 06/09/23 23:00 Oxygen Flow Rate (L/min) 3 Oxygen Delivery Method Nasal Cannula Weight: 71.1 kg Body Mass Index (BMI) 26.9 Intake & Output: Intake and Output for Last 24 Hours 06/08/23 06/09/23 06/10/23 23:59 23:59 23:59 Intake Total 998.00 / 998.00 1701 / 2081 880 / 880 Output Total 950 / 1350 1050 / 1800 1050 / 1050 Balance 48.00 / -352.00 651 / 281 -170 / -170 Lab / Micro Data 06/10/23 05:00 06/10/23 05:00 Labs: Laboratory Results - last 24 hr 06/10/23 05:00: WBC 14.7 H, RBC 2.69 L, Hgb 7.9 L, Hct 24.6 L, MCV 91.4, MCH 29.4, MCHC 32.1 D, RDW Std Deviation 42.3, RDW Coeff of Laly 12.9, Plt Count 344, MPV 10.2, Immature Gran % (Auto) 2.700 H, Neut % (Auto) 71.0 H, Lymph % (Auto) 17.4 L, [place] % (Auto) 7.2, Eos % (Auto) 1.6, Baso % (Auto) 0.1, Absolute Neuts (auto) 10.4 H, Absolute Lymphs (auto) 2.55, Nucleated RBC % 0, Sodium 140, Potassium 3.7, Chloride 101, Carbon Dioxide 40.0 H, Anion Gap -1 L, BUN 23 H, Creatinine 0.48 L, Estim Creat Clear Calc 47.14, Est GFR (MDRD) Af Amer 167, Est GFR (MDRD) Non-Af 138, BUN/Creatinine Ratio 48.2 H, Glucose 86, Calcium 7.7 L, Magnesium 2.5 06/10/23 05:22: Ionized Calcium 4.59 Micro: Microbiology 06/07/23 Unknown Fluid - Pleural (Lung) Gram Stain - Final 06/07/23 Unknown Fluid - Pleural (Lung) Body Fluid Culture - Final Culture exhibits no growth. 06/07/23 Unknown Fluid - Pleural (Lung) Anaerobic Culture - Preliminary No growth in 48 hours. 06/08/23 10:15 Stool Stool Occult Blood (ROSAURA) - Final Occult Blood Positive 06/02/23 10:47 Blood Culture (Wb) - Right Hand Blood Culture - Final No growth in 5 days. 06/02/23 09:26 Blood Culture (Wb) - Left Hand Blood Culture - Final No growth in 5 days. 06/02/23 10:34 Urine, Catheterized Urine Culture - Final Culture exhibits no growth. 06/03/23 09:15 Mucosa - Nose Coronavirus COVID-19 PCR - Final 06/02/23 10:34 Urine, Random Legionella Antigen - Final 06/02/23 10:34 Urine, Random Streptococcus pneumoniae Antigen (M - Final 06/02/23 11:22 Mucosa - Nasopharyngeal Respiratory Panel (PCR) - Final Radiography Diagnostic Testing: Radiology Impression Chest X-Ray 06/10/23 05:15 IMPRESSION: Worsening right infiltrate and pleural effusion. Electronically Signed: Mikael Slaughter MD at 9:12 EST , Rhythm Strip Rhythm Strip: Sinus Rhythm Rate: 68 Ectopy: None Physical Exam Narrative alert and no apparent distress Constitutional Narrative: Patient appears older than her stated age General Appearance: cooperative, well kempt and well developed Orientation / Consciousness: awake, oriented to person and oriented to place HEENT normocephalic, head/scalp atraumatic and moist oral mucous membranes Eyes PERRL, EOMs intact bilaterally and conjunctivae normal Neck supple, no JVD, thyroid normal and no carotid bruits General: trachea midline Resp normal respiratory effort, no retractions and no use of accessory muscles Resp Narrative: Breath sounds are distant bilaterally Auscultation: Negative for rales, rhonchi or wheezes Cardio regular rate, regular rhythm, S1 normal heart sound, S2 normal heart sound, no murmurs, no rub and no gallops GI normal to inspection, nondistended, normoactive bowel sounds, soft to palpation, non-tender and non-distended Extremity no clubbing, cyanosis or edema Skin no rashes or lesions noted General Skin Exam: no breakdown Neuro CN's II-XII intact bilaterally, moves all extremities, no focal motor deficits and no sensory deficits noted Sensorium / Orientation: awake, alert, oriented to person and oriented to place Speech: speech normal Psych affect normal Assessment & Plan Assessment/Plan (1) GI bleed: QUALIFIERS: GI bleed type/associated pathology: unspecified gastrointestinal hemorrhage type Qualified Code(s): K92.2 - Gastrointestinal hemorrhage, unspecified (2) Community acquired pneumonia of right lower lobe of lung: PLAN: Plan 1. Sepsis secondary to right lower lobe community-acquired pneumonia-patient will continue on IV antibiotics, pulmonary medicine is participating in her care #2 acute on chronic combined respiratory failure secondary to chronic obstructive pulmonary disease and pneumonia-patient is currently on 5 L via nasal cannula, her home oxygen requirement appears to be 3 L/min, continue aer osol treatments, IV steroids and antibiotics #3 acute anemia secondary to acute upper GI bleed from duodenal ulcers and erosive esophagitis-patient remains on a PPI at this time, recheck labs tomorrow #4 chronic obstructive pulmonary disease-complicates care, medical course, recovery, and prognosis #5 right pleural effusion-patient will probably require repeat thoracentesis on Tuesday Total clinical time spent by myself addressing the patient's medical issues, reviewing all of her data, and collaborating with patient's care team: 35 minutes Charges/Coding Visit Charges Inpatient E&M: 38529 Subs Hosp L2
[2023-06-10 13:16] LABS: Ionized Calcium Order ORDER TUBE
--- NOTE | 2023-06-10 16:22 | EX.PCM.PN.GI ---
Subjective Subjective Patient underwent an upper endoscopy yesterday for acute upper GI bleed. She was discovered to have some superficial ulcers without bleeding stigmata in the stomach. She also was discovered to have a large duodenal ulcer encompassing the entire duodenal bulb extending into the first portion of the duodenum with a large blood clot. Signs of recent active bleeding. It was removed and treated with 20 mg of epinephrine along with heater probe and clipping yesterday. She denies any abdominal pain today. She is tolerating a liquid diet advanced. Objective Data Objective Data Vital Signs: Vital Signs Temp Pulse Resp BP Pulse Ox O2 Del Method O2 Flow Rate 97.0 F L 74 19 H 116/57 L 94 Nasal Cannula 3 06/10/23 15:00 06/10/23 15:18 06/10/23 15:18 06/10/23 15:00 06/10/23 15:00 06/10/23 15:00 06/10/23 15:00 FiO2 45 06/09/23 23:00 Oxygen Flow Rate (L/min) 3 Oxygen Delivery Method Nasal Cannula Weight: 156 lb 11.979 oz Body Mass Index (BMI) 26.9 Intake & Output: Intake and Output for Last 24 Hours 06/08/23 06/09/23 06/10/23 23:59 23:59 23:59 Intake Total 998.00 / 998.00 1701 / 2081 1240 / 1240 Output Total 950 / 1350 1050 / 1800 1600 / 1600 Balance 48.00 / -352.00 651 / 281 -360 / -360 Lab / Micro Data 06/10/23 05:00 06/10/23 05:00 Labs: Laboratory Results - last 24 hr 06/10/23 05:00: WBC 14.7 H, RBC 2.69 L, Hgb 7.9 L, Hct 24.6 L, MCV 91.4, MCH 29.4, MCHC 32.1 D, RDW Std Deviation 42.3, RDW Coeff of Laly 12.9, Plt Count 344, MPV 10.2, Immature Gran % (Auto) 2.700 H, Neut % (Auto) 71.0 H, Lymph % (Auto) 17.4 L, [place] % (Auto) 7.2, Eos % (Auto) 1.6, Baso % (Auto) 0.1, Absolute Neuts (auto) 10.4 H, Absolute Lymphs (auto) 2.55, Nucleated RBC % 0, Sodium 140, Potassium 3.7, Chloride 101, Carbon Dioxide 40.0 H, Anion Gap -1 L, BUN 23 H, Creatinine 0.48 L, Estim Creat Clear Calc 47.14, Est GFR (MDRD) Af Amer 167, Est GFR (MDRD) Non-Af 138, BUN/Creatinine Ratio 48.2 H, Glucose 86, Calcium 7.7 L, Magnesium 2.5 06/10/23 05:22: Ionized Calcium 4.59 Micro: Microbiology 06/07/23 Unknown Fluid - Pleural (Lung) Gram Stain - Final 06/07/23 Unknown Fluid - Pleural (Lung) Body Fluid Culture - Final Culture exhibits no growth. 06/07/23 Unknown Fluid - Pleural (Lung) Anaerobic Culture - Preliminary No growth in 48 hours. 06/08/23 10:15 Stool Stool Occult Blood (ROSAURA) - Final Occult Blood Positive 06/02/23 10:47 Blood Culture (Wb) - Right Hand Blood Culture - Final No growth in 5 days. 06/02/23 09:26 Blood Culture (Wb) - Left Hand Blood Culture - Final No growth in 5 days. 06/02/23 10:34 Urine, Catheterized Urine Culture - Final Culture exhibits no growth. 06/03/23 09:15 Mucosa - Nose Coronavirus COVID-19 PCR - Final 06/02/23 10:34 Urine, Random Legionella Antigen - Final 06/02/23 10:34 Urine, Random Streptococcus pneumoniae Antigen (M - Final 06/02/23 11:22 Mucosa - Nasopharyngeal Respiratory Panel (PCR) - Final Radiography Diagnostic Testing: Radiology Impression Chest X-Ray 06/10/23 05:15 IMPRESSION: Worsening right infiltrate and pleural effusion. Electronically Signed: Mkiael Slaughter MD at 9:12 EST , Rhythm Strip Rhythm Strip: Sinus Rhythm Rate: 68 Ectopy: None Physical Exam Narrative alert and no apparent distress Constitutional Narrative: Patient appears older than her stated age General Appearance: cooperative, well kempt and well developed Orientation / Consciousness: awake, oriented to person and oriented to place HEENT normocephalic, head/scalp atraumatic and moist oral mucous membranes Eyes PERRL, EOMs intact bilaterally and conjunctivae normal Neck supple, no JVD, thyroid normal and no carotid bruits General: trachea midline Resp normal respiratory effort, no retractions and no use of accessory muscles Resp Narrative: Breath sounds are distant bilaterally Auscultation: Negative for rales, rhonchi or wheezes Cardio regular rate, regular rhythm, S1 normal heart sound, S2 normal heart sound, no murmurs, no rub and no gallops GI normal to inspection, nondistended, normoactive bowel sounds, soft to palpation, non-tender and non-distended Extremity no clubbing, cyanosis or edema Skin no rashes or lesions noted General Skin Exam: no breakdown Neuro CN's II-XII intact bilaterally, moves all extremities, no focal motor deficits and no sensory deficits noted Sensorium / Orientation: awake, alert, oriented to person and oriented to place Speech: speech normal Psych affect normal Assessment & Plan Assessment/Plan (1) COPD with acute exacerbation: (2) GI bleed: QUALIFIERS: GI bleed type/associated pathology: unspecified gastrointestinal hemorrhage type Qualified Code(s): K92.2 - Gastrointestinal hemorrhage, unspecified PLAN: Plan Assessment The patient has a known history of COPD and chronic hypoxemic respiratory failure with a baseline 3 L/min oxygen requirement. The patient appears to be in a state of exacerbation secondary to right lower lobe pneumonia. She underwent thoracentesis. She currently has what is believed to be an acute upper GI bleed. She will undergo an upper endoscopy to evaluate upper GI tract. She was explained alternatives, risk, benefits include not withstanding bleeding, infection, sepsis, perforation, need for emergent surgery and . She will have an ASA of 3. 12/8-her hemoglobin is slightly down to 7.9 from 8.2. She is on PPI therapy twice a day. I will also add Carafate therapy 3 times a day. Continue to monitor hemoglobin. Charges/Coding Visit Charges Inpatient E&M: 72247 Subs Hosp L3
[2023-06-10] MEDS: Sucralfate 1 GM Tablet PO (16:55)
[2023-06-10] MEDS: 0.9% Saline Lock 10 ML Syringe IV ×2 (20:52→21:04)
[2023-06-10] MEDS: 0.9% Normal Saline (250mL Bag) 250 ML 15 ML IV (21:04)
[2023-06-10] MEDS: Montelukast 10 MG Tablet PO (21:11)
[2023-06-10] MEDS: MELATONIN 10 MG TABLET PO (21:12)
[2023-06-11] VITALS (17 sets, daily range): BP systolic 128–144; BP diastolic 54–64; PULSE 65–76; RESP 16–24; TEMP 36–36.9; O2SAT 94–100; BMI 26.8
[2023-06-11] MEDS: Ipratropium/Albuterol Sulfate 3 ML AMPUL.NEB INHALATION ×6 (03:59→23:23)
[2023-06-11] MEDS: Meropenem 1 GM in 0.9% Normal Saline (100mL MB+) 100 ML IV ×3 (05:27→21:44)
[2023-06-11] MEDS: Sucralfate 1 GM Tablet PO ×2 (06:21→11:25)
[2023-06-11 06:52] LABS: Absolute Lymphocyte Count 2.86 X10^3/uL (0.83-4.51); Absolute Neutrophil Count 13.2 X10^3/uL (2.0-7.7); Basophil# 0.04 X10^3/uL; Basophil% 0.2 % (0-1); Eosinophil# 0.69 X10^3/uL; Eosinophils% 3.7 % (0-5); Hemoglobin 8.2 g/dL (12.0-15.0); Lymphocyte # 2.86 X10^3/ul (0.83-4.51); Lymphocyte % 15.4 % (19-41); Mean Corp Hgb Conc 31.5 g/dL (32-36); Mean Corpuscular Hgb 28.8 pg (27.0-32.0); Mean Corpuscular Volume 91.2 fL (81-99); Monocyte# 1.28 X10^3/uL; Monocyte% 6.9 % (0-10); NRBC Flagged by Analyzer 0 % (0-5); Neutrophil # 13.18 X10^3/uL (2.7-7.7); Neutrophil % 70.8 % (47-70); Platelet Count 505 K/mm3 (150-450); RBC Distribution Width CV 12.9 % (11.6-14.6); RBC Distribution Width SD 42.5 fl (35.1-43.9); Red Blood Count 2.85 M/mm3 (4.2-5.4); White Blood Count 18.6 K/mm3 (4.4-11.0)
[2023-06-11 07:11] LABS: Anion Gap 1 (5-15); BUN 18 mg/dL (7-18); BUN/Creat Ratio 39.4 RATIO (10-20); Chloride 100 mmol/L (98-107); Creatinine, Serum 0.46 mg/dL (0.55-1.02); EST Glomerular Filtration Rate 145 mL/min (>60); Est Glom Filt Rate - Afr Amer 176 mL/min (>60); Estimated Creatinine Clearance 47.14 ml/min; Glucose 107 mg/dL (74-106); Magnesium 2.4 mg/dL (1.6-2.6); Potassium 3.8 mmol/L (3.5-5.1); Sodium Level 139 mmol/L (136-145)
--- NOTE | 2023-06-11 08:32 | PCM.PN.INT ---
Assessment & Plan Assessment/Plan (1) COPD with acute exacerbation: PLAN: Plan RECOMMENDATIONS: 1. Continue nasal cannula oxygen. Wean FiO2 for saturations greater than 90%. 2. Continue scheduled BuSpar and bronchodilator therapy. 3. Continue scheduled antibiotics to complete a 10-day course. 4. Wean prednisone over the next 12 to 14 days 5. Probable repeat thoracentesis on Tuesday. Continue to hold Eliquis until thoracentesis 6. Repeat chest x-ray in a.m. 7. Challenge with Lasix IMPRESSIONS: 1. Acute and chronic respiratory failure with hypoxemia and hypercapnia secondary to COPD with exacerbation The patient has a known history of COPD and chronic hypoxemic respiratory failure with a baseline 3 L/min oxygen requirement. She is followed regularly by Dr. Jasmine Evangelista at [facility] pulmonary medicine. The patient appears to be in a state of exacerbation secondary to right lower lobe pneumonia complicated by parapneumonic effusion. Chest x-ray this morning does show some increase in effusion. She did have evidence of acute CO2 retention in the emergency department and was initiated on appropriate noninvasive positive pressure ventilatory support. Patient likely will require 10 days of antibiotics given parapneumonic effusion. Will challenge patient with Lasix today. Anticipate thoracentesis will be required on Tuesday. Would monitor in the hospital over the weekend 2. Sepsis secondary to pneumonia with parapneumonic effusion The patient presented to the hospital with sepsis due to probable right lower lobe pneumonia with acute sepsis related organ dysfunction as evidenced by no need for noninvasive positive pressure ventilatory support. The patient has been fluid resuscitated with appropriate response hemodynamically. Cultures are negative from the pleural fluid. Plan to continue empiric broad-spectrum antimicrobials to complete 10 days. Antigen testing and viral panels were unremarkable. 3. Upper GI bleed secondary to grade a erosive esophagitis, hiatal hernia and duodenal ulcer with visible vessel Hemoglobin appears to be stable today. Patient is doing well on the current therapy. Okay to advance diet from my perspective. Patient may require a repeat endoscopy in the future to reassess healing given visible vessel. Continue PPI twice daily 4. History of seasonal allergic rhinitis/history of tobacco dependency, in remission Complicates care, management, recovery and prognosis. Continue home medications as indicated. Subjective Subjective Patient did okay overnight. Patient is reporting more heaviness on the chest this morning compared to yesterday. Patient also had to go from 3 L nasal cannula to 5 L nasal cannula to maintain saturations. Patient is not reporting any nausea or vomiting. Objective Data Objective Data Vital Signs: Vital Signs Temp Pulse Resp BP Pulse Ox O2 Del Method O2 Flow Rate 36.0 C L 73 18 144/64 H 97 Nasal Cannula 3 06/11/23 03:35 06/11/23 03:59 06/11/23 03:59 06/11/23 03:35 06/11/23 03:35 06/11/23 03:35 06/11/23 03:35 FiO2 45 06/09/23 23:00 Oxygen Flow Rate (L/min) 3 Oxygen Delivery Method Nasal Cannula Weight: 70.9 kg Body Mass Index (BMI) 26.8 Intake & Output: Intake and Output for Last 24 Hours 06/09/23 06/10/23 06/11/23 23:59 23:59 23:59 Intake Total 1701 / 2081 1810 / 1810 270 / 270 Output Total 1050 / 1800 1870 / 1870 230 / 230 Balance 651 / 281 -60 / -60 40 / 40 Lab / Micro Data Attestation: I reviewed the patient's lab results. 06/11/23 06:40 06/11/23 06:40 Labs: Laboratory Results - last 24 hr 06/11/23 06:40: WBC 18.6 H 06/11/23 06:40: WBC Cancelled, Corrected WBC Cancelled, RBC 2.85 L 06/11/23 06:40: RBC Cancelled, Hgb 8.2 L 06/11/23 06:40: Hgb Cancelled, Hct 26.0 L 06/11/23 06:40: Hct Cancelled, MCV 91.2 06/11/23 06:40: MCV Cancelled, MCH 28.8 06/11/23 06:40: MCH Cancelled, MCHC 31.5 L 06/11/23 06:40: MCHC Cancelled, RDW Std Deviation 42.5 06/11/23 06:40: RDW Std Deviation Cancelled, RDW Coeff of Laly 12.9 06/11/23 06:40: RDW Coeff of Laly Cancelled, Plt Count 505 H 06/11/23 06:40: Plt Count Cancelled, MPV 10.0 06/11/23 06:40: MPV Cancelled, Immature Gran % (Auto) 3.000 H 06/11/23 06:40: Immature Gran % (Auto) Cancelled, Neut % (Auto) 70.8 H 06/11/23 06:40: Neut % (Auto) Cancelled, Lymph % (Auto) 15.4 L 06/11/23 06:40: Lymph % (Auto) Cancelled, [place] % (Auto) 6.9 06/11/23 06:40: [place] % (Auto) Cancelled, Eos % (Auto) 3.7 06/11/23 06:40: Eos % (Auto) Cancelled, Baso % (Auto) 0.2 06/11/23 06:40: Baso % (Auto) Cancelled, Absolute Neuts (auto) 13.2 H 06/11/23 06:40: Absolute Neuts (auto) Cancelled, Absolute Lymphs (auto) 2.86 06/11/23 06:40: Absolute Lymphs (auto) Cancelled, Total Counted Cancelled, Neutrophils % (Manual) Cancelled, Band Neutrophils % Cancelled, Lymphocytes % (Manual) Cancelled, Monocytes % (Manual) Cancelled, Eosinophils % (Manual) Cancelled, Basophils % (Manual) Cancelled, Metamyelocytes % Cancelled, Myelocytes % Cancelled, Promyelocytes % Cancelled, Blast Cells % Cancelled, Plasma Cell % (Manual) Cancelled, Other Cells % Cancelled, Nucleated RBC % 0 06/11/23 06:40: Nucleated RBC % Cancelled, Nucleated RBCs/100 WBC Cancelled, Differential Comment Cancelled, Diff Path Review Cancelled, Hypersegmented Neuts Cancelled, Atypical Lymphocytes Cancelled, Reactive Lymphocytes Cancelled, Smudge Cells Cancelled, Toxic Granulation Cancelled, Toxic Vacuolation Cancelled, Dohle Bodies Cancelled, Kimmie Rods Cancelled, Platelet Estimate Cancelled, Plt Morphology Comment Cancelled, RBC Morphology Cancelled 06/11/23 06:40: RBC Morphology Cancelled, Polychromasia Cancelled, Hypochromasia Cancelled, Poikilocytosis Cancelled, Basophilic Stippling Cancelled, Anisocytosis Cancelled, Microcytosis Cancelled, Macrocytosis Cancelled, Spherocytes Cancelled, Sickle Cells Cancelled, Target Cells Cancelled, Tear Drop Cells Cancelled, Ovalocytes Cancelled, Stomatocytes Cancelled, [place] Bodies Cancelled, [place] Cells Cancelled, Bite Cells Cancelled, Crenated Cell Cancelled, Acanthocytes (Spur) Cancelled, Rouleaux Cancelled, Schistocytes Cancelled, Sodium 139, Potassium 3.8, Chloride 100, Carbon Dioxide 38.0 H, Anion Gap 1 L, BUN 18, Creatinine 0.46 L, Estim Creat Clear Calc 47.14, Est GFR (MDRD) Af Amer 176, Est GFR (MDRD) Non-Af 145, BUN/Creatinine Ratio 39.4 H, Glucose 107 H, Calcium 8.0 L, Magnesium 2.4 Micro: Microbiology 06/07/23 Unknown Fluid - Pleural (Lung) Gram Stain - Final 06/07/23 Unknown Fluid - Pleural (Lung) Body Fluid Culture - Final Culture exhibits no growth. 06/07/23 Unknown Fluid - Pleural (Lung) Anaerobic Culture - Preliminary No growth in 48 hours. 06/08/23 10:15 Stool Stool Occult Blood (ROSAURA) - Final Occult Blood Positive 06/02/23 10:47 Blood Culture (Wb) - Right Hand Blood Culture - Final No growth in 5 days. 06/02/23 09:26 Blood Culture (Wb) - Left Hand Blood Culture - Final No growth in 5 days. 06/02/23 10:34 Urine, Catheterized Urine Culture - Final Culture exhibits no growth. 06/03/23 09:15 Mucosa - Nose Coronavirus COVID-19 PCR - Final 06/02/23 10:34 Urine, Random Legionella Antigen - Final 06/02/23 10:34 Urine, Random Streptococcus pneumoniae Antigen (M - Final 06/02/23 11:22 Mucosa - Nasopharyngeal Respiratory Panel (PCR) - Final Radiography Diagnostic Testing: Radiology Impression Chest X-Ray 06/10/23 05:15 IMPRESSION: Worsening right infiltrate and pleural effusion. Electronically Signed: Mikael Slaughter MD at 9:12 EST , Rhythm Strip Rhythm Strip: Sinus Rhythm Rate: 65 Ectopy: None Physical Exam Const alert, oriented x3 and no apparent distress Constitutional Narrative: Sitting in bedside recliner. No conversational dyspnea noted General Appearance: cooperative and ill appearing HEENT normocephalic and head/scalp atraumatic Eyes PERRL, EOMs intact bilaterally and conjunctivae normal Neck supple General: trachea midline Chest inspection of chest normal Resp Effort and Inspection: tachypneic Auscultation: diminished lung sounds diffuse; Negative for rales, rhonchi or wheezes Percussion: dullness Lower: right Cardio regular rate, regular rhythm, S1 normal heart sound and S2 normal heart sound GI normal to inspection, nondistended, normoactive bowel sounds Extremity no clubbing, cyanosis or edema Skin no rashes or lesions noted Neuro CN's II-XII intact bilaterally, moves all extremities and no focal motor deficits Psych cooperative and affect normal Mood & Affect: anxious and flat affect Charges/Coding Visit Charges Inpatient E&M: 11052 Subs Hosp L2
[2023-06-11] MEDS: predniSONE 20 MG Tablet 40 MG PO (08:40)
[2023-06-11] MEDS: Metoprolol Tartrate 25 MG Tablet PO ×2 (09:26→21:40)
[2023-06-11] MEDS: 0.9% Saline Lock 10 ML Syringe IV ×2 (09:27→11:26)
[2023-06-11] MEDS: busPIRone 5 MG Tablet 10 MG PO ×2 (09:27→21:47)
[2023-06-11] MEDS: Pantoprazole Sodium 40 MG in 0.9% Normal Saline (100mL MB+) 100 ML 330 MG IV ×2 (09:27→21:40)
[2023-06-11] MEDS: Furosemide 40 MG/4 ML Vial IV (09:27)
--- NOTE | 2023-06-11 16:15 | PCM.PN.HOSP ---
Reason for Visit Reason for Visit: Diagnoses Pneumonia, unspecified organism (06/02/23) Chronic obstructive pulmonary disease with (acute) exacerbation (06/02/23) Pleural effusion in other conditions classified elsewhere (06/02/23) Gastrointestinal hemorrhage, unspecified (06/02/23) Subjective Subjective And examined today, I talked with pulmonary medicine briefly about her care, she is currently on 4 L of oxygen via nasal cannula. Objective Data Objective Data Vital Signs: Vital Signs Temp Pulse Resp BP Pulse Ox O2 Del Method O2 Flow Rate 98.2 F 72 16 128/62 H 96 Nasal Cannula 4 06/11/23 14:51 06/11/23 15:08 06/11/23 15:08 06/11/23 14:51 06/11/23 14:51 06/11/23 14:52 06/11/23 14:52 FiO2 45 06/09/23 23:00 Oxygen Flow Rate (L/min) 4 Oxygen Delivery Method Nasal Cannula Weight: 70.9 kg Body Mass Index (BMI) 26.8 Intake & Output: Intake and Output for Last 24 Hours 06/09/23 06/10/23 06/11/23 23:59 23:59 23:59 Intake Total 1701 / 2081 1810 / 1810 974.75 / 974.75 Output Total 1050 / 1800 1870 / 1870 980 / 980 Balance 651 / 281 -60 / -60 -5.25 / -5.25 Lab / Micro Data 06/11/23 06:40 06/11/23 06:40 Labs: Laboratory Results - last 24 hr 06/11/23 06:40: WBC 18.6 H 06/11/23 06:40: WBC Cancelled, Corrected WBC Cancelled, RBC 2.85 L 06/11/23 06:40: RBC Cancelled, Hgb 8.2 L 06/11/23 06:40: Hgb Cancelled, Hct 26.0 L 06/11/23 06:40: Hct Cancelled, MCV 91.2 06/11/23 06:40: MCV Cancelled, MCH 28.8 06/11/23 06:40: MCH Cancelled, MCHC 31.5 L 06/11/23 06:40: MCHC Cancelled, RDW Std Deviation 42.5 06/11/23 06:40: RDW Std Deviation Cancelled, RDW Coeff of Laly 12.9 06/11/23 06:40: RDW Coeff of Laly Cancelled, Plt Count 505 H 06/11/23 06:40: Plt Count Cancelled, MPV 10.0 06/11/23 06:40: MPV Cancelled, Immature Gran % (Auto) 3.000 H 06/11/23 06:40: Immature Gran % (Auto) Cancelled, Neut % (Auto) 70.8 H 06/11/23 06:40: Neut % (Auto) Cancelled, Lymph % (Auto) 15.4 L 06/11/23 06:40: Lymph % (Auto) Cancelled, [place] % (Auto) 6.9 06/11/23 06:40: [place] % (Auto) Cancelled, Eos % (Auto) 3.7 06/11/23 06:40: Eos % (Auto) Cancelled, Baso % (Auto) 0.2 06/11/23 06:40: Baso % (Auto) Cancelled, Absolute Neuts (auto) 13.2 H 06/11/23 06:40: Absolute Neuts (auto) Cancelled, Absolute Lymphs (auto) 2.86 06/11/23 06:40: Absolute Lymphs (auto) Cancelled, Total Counted Cancelled, Neutrophils % (Manual) Cancelled, Band Neutrophils % Cancelled, Lymphocytes % (Manual) Cancelled, Monocytes % (Manual) Cancelled, Eosinophils % (Manual) Cancelled, Basophils % (Manual) Cancelled, Metamyelocytes % Cancelled, Myelocytes % Cancelled, Promyelocytes % Cancelled, Blast Cells % Cancelled, Plasma Cell % (Manual) Cancelled, Other Cells % Cancelled, Nucleated RBC % 0 06/11/23 06:40: Nucleated RBC % Cancelled, Nucleated RBCs/100 WBC Cancelled, Differential Comment Cancelled, Diff Path Review Cancelled, Hypersegmented Neuts Cancelled, Atypical Lymphocytes Cancelled, Reactive Lymphocytes Cancelled, Smudge Cells Cancelled, Toxic Granulation Cancelled, Toxic Vacuolation Cancelled, Dohle Bodies Cancelled, Kimmie Rods Cancelled, Platelet Estimate Cancelled, Plt Morphology Comment Cancelled, RBC Morphology Cancelled 06/11/23 06:40: RBC Morphology Cancelled, Polychromasia Cancelled, Hypochromasia Cancelled, Poikilocytosis Cancelled, Basophilic Stippling Cancelled, Anisocytosis Cancelled, Microcytosis Cancelled, Macrocytosis Cancelled, Spherocytes Cancelled, Sickle Cells Cancelled, Target Cells Cancelled, Tear Drop Cells Cancelled, Ovalocytes Cancelled, Stomatocytes Cancelled, [place] Bodies Cancelled, [place] Cells Cancelled, Bite Cells Cancelled, Crenated Cell Cancelled, Acanthocytes (Spur) Cancelled, Rouleaux Cancelled, Schistocytes Cancelled, Sodium 139, Potassium 3.8, Chloride 100, Carbon Dioxide 38.0 H, Anion Gap 1 L, BUN 18, Creatinine 0.46 L, Estim Creat Clear Calc 47.14, Est GFR (MDRD) Af Amer 176, Est GFR (MDRD) Non-Af 145, BUN/Creatinine Ratio 39.4 H, Glucose 107 H, Calcium 8.0 L, Magnesium 2.4 Micro: Microbiology 06/07/23 Unknown Fluid - Pleural (Lung) Gram Stain - Final 06/07/23 Unknown Fluid - Pleural (Lung) Body Fluid Culture - Final Culture exhibits no growth. 06/07/23 Unknown Fluid - Pleural (Lung) Anaerobic Culture - Preliminary No growth in 48 hours. 06/08/23 10:15 Stool Stool Occult Blood (ROSAURA) - Final Occult Blood Positive 06/02/23 10:47 Blood Culture (Wb) - Right Hand Blood Culture - Final No growth in 5 days. 06/02/23 09:26 Blood Culture (Wb) - Left Hand Blood Culture - Final No growth in 5 days. 06/02/23 10:34 Urine, Catheterized Urine Culture - Final Culture exhibits no growth. 06/03/23 09:15 Mucosa - Nose Coronavirus COVID-19 PCR - Final 06/02/23 10:34 Urine, Random Legionella Antigen - Final 06/02/23 10:34 Urine, Random Streptococcus pneumoniae Antigen (M - Final 06/02/23 11:22 Mucosa - Nasopharyngeal Respiratory Panel (PCR) - Final Rhythm Strip Rhythm Strip: Sinus Rhythm Rate: 65 Ectopy: None Physical Exam Narrative alert and no apparent distress Constitutional Narrative: Patient appears older than her stated age General Appearance: cooperative, well kempt and well developed Orientation / Consciousness: awake, oriented to person and oriented to place HEENT normocephalic, head/scalp atraumatic and moist oral mucous membranes Eyes PERRL, EOMs intact bilaterally and conjunctivae normal Neck supple, no JVD, thyroid normal and no carotid bruits General: trachea midline Resp normal respiratory effort, no retractions and no use of accessory muscles Resp Narrative: Breath sounds are distant bilaterally Auscultation: Negative for rales, rhonchi or wheezes Cardio regular rate, regular rhythm, S1 normal heart sound, S2 normal heart sound, no murmurs, no rub and no gallops GI normal to inspection, nondistended, normoactive bowel sounds, soft to palpation, non-tender and non-distended Extremity no clubbing, cyanosis or edema Skin no rashes or lesions noted General Skin Exam: no breakdown Neuro CN's II-XII intact bilaterally, moves all extremities, no focal motor deficits and no sensory deficits noted Sensorium / Orientation: awake, alert, oriented to person and oriented to place Speech: speech normal Psych affect normal Assessment & Plan Assessment/Plan (1) Right lower lobe pneumonia: (2) GI bleed: QUALIFIERS: GI bleed type/associated pathology: unspecified gastrointestinal hemorrhage type Qualified Code(s): K92.2 - Gastrointestinal hemorrhage, unspecified (3) Community acquired pneumonia of right lower lobe of lung: PLAN: Plan 1. Sepsis secondary to right lower lobe community-acquired pneumonia-patient will continue on IV antibiotics, pulmonary medicine is participating in her care #2 acute on chronic combined respiratory failure secondary to chronic obstructive pulmonary disease and pneumonia-patient is currently on 4 L via nasal cannula, her home oxygen requirement appears to be 3 L/min, continue aerosol treatments, IV steroids and antibiotics #3 acute anemia secondary to acute upper GI bleed from duodenal ulcers and erosive esophagitis-patient remains on a PPI at this time, recheck labs tomorrow #4 chronic obstructive pulmonary disease-complicates care, medical course, recovery, and prognosis #5 right pleural effusion-patient will probably require repeat thoracentesis on Tuesday Total clinical time spent by myself addressing the patient's medical issues, reviewing all of her data, and collaborating with patient's care team: 25 minutes Charges/Coding Visit Charges Inpatient E&M: 77079 [facility] Hosp L1
--- NOTE | 2023-06-11 20:44 | CPS ---
Patient refused PAP therapy for the night. On 6L 97%
[2023-06-11] MEDS: Montelukast 10 MG Tablet PO (21:40)
[2023-06-11] MEDS: MELATONIN 10 MG TABLET PO (21:40)
[2023-06-12] VITALS (12 sets, daily range): BP systolic 119–150; BP diastolic 51–69; PULSE 64–75; RESP 14–20; TEMP 36.4–36.8; O2SAT 93–98; BMI 26.6
--- NOTE | 2023-06-12 06:00 | RAD_ITS ---
EXAM: XR CHEST, 2 VIEWS CLINICAL INDICATION: Right pleural effusion TECHNIQUE: Frontal and lateral views of the chest. COMPARISON: Previous chest radiograph of 06/10/2023. FINDINGS: LUNGS AND PLEURAL SPACES: There is a stable moderate right pleural effusion which obscures the right hemidiaphragm. There is stable airspace disease in the right perihilar region and right lower lung. Right lung base remains opacified by the pleural fluid and underlying consolidation. Left lung is clear except for stable discoid atelectasis or scarring within the retrocardiac portion of the left lower lung. No left pleural effusion. No pneumothorax. HEART: Unremarkable. Cardiac silhouette not enlarged. Normal pulmonary vasculature. MEDIASTINUM: Thoracic aorta remains calcific and minimally elongated. Trachea is midline. BONES/JOINTS: Right shoulder prosthesis again noted. SOFT TISSUES: Unremarkable. RAD/Chest PA and Lateral IMPRESSION: No significant interval change as compared to the prior study of 06/10/2023. Electronically Signed: Neo To MD at 6:51 EST ,
[2023-06-12] MEDS: Meropenem 1 GM in 0.9% Normal Saline (100mL MB+) 100 ML IV ×3 (06:16→21:33)
[2023-06-12] MEDS: Ipratropium/Albuterol Sulfate 3 ML AMPUL.NEB INHALATION ×4 (06:56→19:34)
[2023-06-12 07:22] LABS: Absolute Lymphocyte Count 4.01 X10^3/uL (0.83-4.51); Absolute Neutrophil Count 13.2 X10^3/uL (2.0-7.7); Basophil# 0.04 X10^3/uL; Basophil% 0.2 % (0-1); Eosinophil# 0.58 X10^3/uL; Eosinophils% 2.9 % (0-5); Hematocrit 27.3 % (37-47); Hemoglobin 8.8 g/dL (12.0-15.0); Lymphocyte # 4.01 X10^3/ul (0.83-4.51); Lymphocyte % 19.9 % (19-41); Mean Corp Hgb Conc 32.2 g/dL (32-36); Mean Corpuscular Hgb 29.2 pg (27.0-32.0); Mean Corpuscular Volume 90.7 fL (81-99); Monocyte# 1.73 X10^3/uL; Monocyte% 8.6 % (0-10); NRBC Flagged by Analyzer 0 % (0-5); Neutrophil # 13.24 X10^3/uL (2.7-7.7); Neutrophil % 65.7 % (47-70); POSITIVE DIFFERENTIAL YES; Platelet Count 612 K/mm3 (150-450); RBC Distribution Width SD 43.1 fl (35.1-43.9); Red Blood Count 3.01 M/mm3 (4.2-5.4); White Blood Count 20.1 K/mm3 (4.4-11.0)
[2023-06-12 07:26] LABS: Differential Indicated SCAN CRITERIA MET
[2023-06-12] MEDS: busPIRone 5 MG Tablet 10 MG PO ×2 (07:57→20:49)
[2023-06-12] MEDS: Metoprolol Tartrate 25 MG Tablet PO ×2 (07:58→20:49)
[2023-06-12] MEDS: predniSONE 20 MG Tablet 40 MG PO (07:58)
[2023-06-12] MEDS: Pantoprazole Sodium 40 MG in 0.9% Normal Saline (100mL MB+) 100 ML 330 MG IV ×2 (08:01→20:44)
[2023-06-12] MEDS: 0.9% Saline Lock 10 ML Syringe IV (08:02)
--- NOTE | 2023-06-12 08:30 | PN.CC_ITS ---
Assessment & Plan Assessment/Plan (1) COPD with acute exacerbation: PLAN: Plan RECOMMENDATIONS: 1. Continue nasal cannula oxygen. Wean FiO2 for saturations greater than 90%. 2. Continue scheduled BuSpar and bronchodilator therapy. 3. Continue scheduled antibiotics to complete a 10-day course. 4. Wean prednisone over the next 12 to 14 days 5. Repeat thoracentesis tomorrow, but likely can be discharged if no complications 6. Walking oximetry prior to discharge 7. Follow-up with primary (Dr. Evangelista [facility]) in 2 to 4 weeks IMPRESSIONS: 1. Acute and chronic respiratory failure with hypoxemia and hypercapnia secondary to COPD with exacerbation The patient has a known history of COPD and chronic hypoxemic respiratory failure with a baseline 3 L/min oxygen requirement. She is followed regularly by Dr. Jasmine Evangelista at [facility] pulmonary medicine. The patient appears to be in a state of exacerbation secondary to right lower lobe pneumonia complicated by parapneumonic effusion. Chest x-ray this morning does show some increase in effusion. She did have evidence of acute CO2 retention in the emergency department and was initiated on appropriate noninvasive positive pressure ventilatory support. Patient likely will require 10 days of antibiotics given parapneumonic effusion. Patient responded well to Lasix yesterday. Anticipate thoracentesis on Tuesday with chest culture, given additional labs are not needed. Patient could likely be discharged following drainage 2. Sepsis secondary to pneumonia with parapneumonic effusion The patient presented to the hospital with sepsis due to probable right lower lobe pneumonia with acute sepsis related organ dysfunction as evidenced by no need for noninvasive positive pressure ventilatory support. The patient has been fluid resuscitated with appropriate response hemodynamically. Cultures are negative from the pleural fluid. Plan to continue empiric broad-spectrum antimicrobials to complete 10 days. Antigen testing and viral panels were unremarkable. 3. Upper GI bleed secondary to grade a erosive esophagitis, hiatal hernia and duodenal ulcer with visible vessel Hemoglobin appears to be stable today. Patient is doing well on the current therapy. Okay to advance diet from my perspective. Patient may require a repeat endoscopy in the future to reassess healing given visible vessel. Continue PPI twice daily. Defer to GI on timing of reassessment 4. History of seasonal allergic rhinitis/history of tobacco dependency, in remission Complicates care, management, recovery and prognosis. Continue home medications as indicated. Subjective Subjective Patient did okay overnight. Patient subjectively feels slightly improved compared to yesterday. Patient still feels a heaviness on her chest. Patient's oxygen requirements have significantly improved following diuretics yesterday. No melena or hematochezia reported Objective Data Objective Data Vital Signs: Vital Signs Temp Pulse Resp BP Pulse Ox O2 Del Method O2 Flow Rate 36.4 C L 68 16 134/55 H 93 Nasal Cannula 4 06/12/23 03:40 06/12/23 07:58 06/12/23 06:56 06/12/23 03:40 06/12/23 06:56 06/12/23 06:56 06/12/23 06:56 FiO2 45 06/09/23 23:00 Oxygen Flow Rate (L/min) 4 Oxygen Delivery Method Nasal Cannula Weight: 70.4 kg Body Mass Index (BMI) 26.6 Intake & Output: Intake and Output for Last 24 Hours 06/10/23 06/11/23 06/12/23 23:59 23:59 23:59 Intake Total 1810 / 1810 2004.75 / 2004.75 120 / 120 Output Total 1870 / 1870 2430 / 2980 950 / 950 Balance -60 / -60 -425.25 / -975.25 -830 / -830 Lab / Micro Data Attestation: I reviewed the patient's lab results. 06/12/23 06:27 06/11/23 06:40 Labs: Laboratory Results - last 24 hr 06/12/23 06:27: WBC 20.1 H, RBC 3.01 L, Hgb 8.8 L, Hct 27.3 L, MCV 90.7, MCH 29.2, MCHC 32.2, RDW Std Deviation 43.1, RDW Coeff of Laly 13.0, Plt Count 612 H, MPV 10.0, Immature Gran % (Auto) 2.700 H, Neut % (Auto) 65.7, Lymph % (Auto) 19.9, [place] % (Auto) 8.6, Eos % (Auto) 2.9, Baso % (Auto) 0.2, Absolute Neuts (auto) 13.2 H, Absolute Lymphs (auto) 4.01, Nucleated RBC % 0 Micro: Microbiology 06/07/23 Unknown Fluid - Pleural (Lung) Gram Stain - Final 06/07/23 Unknown Fluid - Pleural (Lung) Body Fluid Culture - Final Culture exhibits no growth. 06/07/23 Unknown Fluid - Pleural (Lung) Anaerobic Culture - Preliminary No growth in 48 hours. 06/08/23 10:15 Stool Stool Occult Blood (ROSAURA) - Final Occult Blood Positive 06/02/23 10:47 Blood Culture (Wb) - Right Hand Blood Culture - Final No growth in 5 days. 06/02/23 09:26 Blood Culture (Wb) - Left Hand Blood Culture - Final No growth in 5 days. 06/02/23 10:34 Urine, Catheterized Urine Culture - Final Culture exhibits no growth. 06/03/23 09:15 Mucosa - Nose Coronavirus COVID-19 PCR - Final 06/02/23 10:34 Urine, Random Legionella Antigen - Final 06/02/23 10:34 Urine, Random Streptococcus pneumoniae Antigen (M - Final 06/02/23 11:22 Mucosa - Nasopharyngeal Respiratory Panel (PCR) - Final Radiography Diagnostic Testing: Radiology Impression Chest X-Ray 06/12/23 06:00 IMPRESSION: No significant interval change as compared to the prior study of 06/10/2023. Electronically Signed: Neo To MD at 6:51 EST , Rhythm Strip Rhythm Strip: Sinus Rhythm Rate: 70 Ectopy: None Physical Exam Const alert, oriented x3 and no apparent distress Constitutional Narrative: Sitting in bedside recliner. No conversational dyspnea noted General Appearance: cooperative HEENT normocephalic and head/scalp atraumatic Eyes PERRL, EOMs intact bilaterally and conjunctivae normal Neck supple General: trachea midline Chest inspection of chest normal Resp Resp Narrative: Slowly improving air movement throughout all lung zepeda Auscultation: diminished lung sounds diffuse; Negative for rales, rhonchi or wheezes Percussion: dullness Lower: right Cardio regular rate, regular rhythm, S1 normal heart sound and S2 normal heart sound GI normal to inspection, nondistended, normoactive bowel sounds Extremity no clubbing, cyanosis or edema Skin no rashes or lesions noted Neuro CN's II-XII intact bilaterally, moves all extremities and no focal motor deficits Psych cooperative and affect normal Charges/Coding Visit Charges Inpatient E&M: 52846 Subs Hosp L2
--- NOTE | 2023-06-12 10:32 | PCM.PN.HOSP ---
Reason for Visit Reason for Visit: Diagnoses Pneumonia, unspecified organism (06/02/23) Chronic obstructive pulmonary disease with (acute) exacerbation (06/02/23) Pleural effusion in other conditions classified elsewhere (06/02/23) Gastrointestinal hemorrhage, unspecified (06/02/23) Subjective Subjective Patient was seen and examined today, she does not complain of any fever, chills, shortness of breath. Objective Data Objective Data Vital Signs: Vital Signs Temp Pulse Resp BP Pulse Ox O2 Del Method O2 Flow Rate 98.0 F 67 14 137/64 H 98 Nasal Cannula 4 06/12/23 09:00 06/12/23 09:00 06/12/23 09:00 06/12/23 09:00 06/12/23 09:00 06/12/23 09:00 06/12/23 09:00 FiO2 45 06/09/23 23:00 Oxygen Flow Rate (L/min) 4 Oxygen Delivery Method Nasal Cannula Weight: 70.4 kg Body Mass Index (BMI) 26.6 Intake & Output: Intake and Output for Last 24 Hours 06/10/23 06/11/23 06/12/23 23:59 23:59 23:59 Intake Total 1810 / 1810 2004.75 / 2004.75 460.75 / 460.75 Output Total 1870 / 1870 2430 / 2980 950 / 950 Balance -60 / -60 -425.25 / -975.25 -489.25 / -489.25 Lab / Micro Data 06/12/23 06:27 06/11/23 06:40 Labs: Laboratory Results - last 24 hr 06/12/23 06:27: WBC 20.1 H, RBC 3.01 L, Hgb 8.8 L, Hct 27.3 L, MCV 90.7, MCH 29.2, MCHC 32.2, RDW Std Deviation 43.1, RDW Coeff of Laly 13.0, Plt Count 612 H, MPV 10.0, Immature Gran % (Auto) 2.700 H, Neut % (Auto) 65.7, Lymph % (Auto) 19.9, [place] % (Auto) 8.6, Eos % (Auto) 2.9, Baso % (Auto) 0.2, Absolute Neuts (auto) 13.2 H, Absolute Lymphs (auto) 4.01, Nucleated RBC % 0, Diff Path Review November Micro: Microbiology 06/07/23 Unknown Fluid - Pleural (Lung) Gram Stain - Final 06/07/23 Unknown Fluid - Pleural (Lung) Body Fluid Culture - Final Culture exhibits no growth. 06/07/23 Unknown Fluid - Pleural (Lung) Anaerobic Culture - Preliminary No growth in 48 hours. 06/08/23 10:15 Stool Stool Occult Blood (ROSAURA) - Final Occult Blood Positive 06/02/23 10:47 Blood Culture (Wb) - Right Hand Blood Culture - Final No growth in 5 days. 06/02/23 09:26 Blood Culture (Wb) - Left Hand Blood Culture - Final No growth in 5 days. 06/02/23 10:34 Urine, Catheterized Urine Culture - Final Culture exhibits no growth. 06/03/23 09:15 Mucosa - Nose Coronavirus COVID-19 PCR - Final 06/02/23 10:34 Urine, Random Legionella Antigen - Final 06/02/23 10:34 Urine, Random Streptococcus pneumoniae Antigen (M - Final 06/02/23 11:22 Mucosa - Nasopharyngeal Respiratory Panel (PCR) - Final Radiography Diagnostic Testing: Radiology Impression Chest X-Ray 06/12/23 06:00 IMPRESSION: No significant interval change as compared to the prior study of 06/10/2023. Electronically Signed: Neo To MD at 6:51 EST , Rhythm Strip Rhythm Strip: Sinus Rhythm Rate: 70 Ectopy: None Physical Exam Narrative alert, oriented x3 and no apparent distress General Appearance: cooperative, well kempt and well developed Orientation / Consciousness: awake, oriented to person, oriented to place and oriented to time HEENT normocephalic and moist oral mucous membranes Eyes PERRL, EOMs intact bilaterally and conjunctivae normal Neck supple, no JVD, thyroid normal and no carotid bruits General: trachea midline Resp normal respiratory effort and clear to auscultation bilaterally Auscultation: Negative for rales, rhonchi or wheezes Cardio regular rate, regular rhythm, no murmurs, no rub and no gallops GI normal to inspection, nondistended, normoactive bowel sounds, soft to palpation, non-tender and non-distended Extremity Extremity Narrative: Patient has a right below the knee amputation Skin no rashes or lesions noted General Skin Exam: no breakdown Neuro oriented x3, CN's II-XII intact bilaterally, moves all extremities, no focal motor deficits and no sensory deficits noted Sensorium / Orientation: awake, alert, oriented to person, oriented to place and oriented to time Speech: speech normal Psych affect normal Assessment & Plan Assessment/Plan (1) Parapneumonic effusion: (2) Right lower lobe pneumonia: (3) GI bleed: QUALIFIERS: GI bleed type/associated pathology: unspecified gastrointestinal hemorrhage type Qualified Code(s): K92.2 - Gastrointestinal hemorrhage, unspecified (4) Community acquired pneumonia of right lower lobe of lung: PLAN: Plan 1. Sepsis secondary to right lower lobe community-acquired pneumonia-patient will continue on IV antibiotics, pulmonary medicine is participating in her care #2 acute on chronic combined respiratory failure secondary to chronic obstructive pulmonary disease and pneumonia-patient is currently on 4 L via nasal cannula, her home oxygen requirement appears to be 3 L/min, continue aerosol treatments, IV steroids and antibiotics #3 acute anemia secondary to acute upper GI bleed from duodenal ulcers and erosive esophagitis-patient remains on a PPI at this time, recheck labs tomorrow #4 chronic obstructive pulmonary disease-complicates care, medical course, recovery, and prognosis #5 right pleural effusion-patient will probably require repeat thoracentesis on Tuesday Total clinical time spent by myself addressing the patient's medical issues, reviewing all of her data, and collaborating with patient's care team: 25 minutes Charges/Coding Visit Charges Inpatient E&M: 37105 [facility] L1
[2023-06-12] MEDS: Albuterol 2.5 MG/3 ML VIAL.NEB. INHALATION (14:07)
[2023-06-12] MEDS: MELATONIN 10 MG TABLET PO (20:50)
[2023-06-12] MEDS: Montelukast 10 MG Tablet PO (20:50)
--- NOTE | 2023-06-12 20:53 | CPS ---
Patient refused PAP therapy for the night. On 4L 98%
[2023-06-13] VITALS (18 sets, daily range): BP systolic 113–148; BP diastolic 51–73; PULSE 65–78; RESP 16–22; TEMP 36.4–37.3; O2SAT 95–100
--- NOTE | 2023-06-13 | FLU_PTH ---
PATIENT: SNEHA CARDENAS LOC: [facility] U#:[id number] AGE/SX: 68/F ROOM: [facility] RE06/02/[address]: Dr. Robel Funk DO : 1955 BED: 1 DIS: 06/16/2023 SPEC #: [id number] RECD: 06/13/23 14:01 STATUS: [place] #: [id number] CARLOS: 06/13/23 00:[address]: Robel Funk DEPT: CYTOLOGY RECD BY: Wilman Kirkland ENTERED: 06/14/23 09:03 SP TYPE: Fluid OTHR DR: DO Dr. Gabby Fu MD Dr. Victor Velasquez, MD Tissues: THORACIC FLUID Procedures: Special Stain Group II Surgery Specimen Level IV Cytospin Fluid HEADER OPERATION: Ultrasound guided thoracentesis PRE-OP DIAGNOSIS: Right pleural effusion TISSUE SUBMITTED: Thoracentesis fluid for cytology DIAGNOSIS CYTOLOGY Thoracentesis fluid for cytology (cytospin and cell block): Marked acute inflammation. Negative for malignant cells. AM:sinan 06/15/2023 CYTOLOGY STUDY Slides are reviewed. CYTOLOGY GROSS Received is 50 ml of red cloudy fluid labeled with the patient's name and and designated per the requisition as thoracentesis. Submitted for cytology preparation including cell block. / sinan 06/14/2023 TC:2 CPT: 64809, 67953
[2023-06-13] MEDS: Meropenem 1 GM in 0.9% Normal Saline (100mL MB+) 100 ML IV ×2 (05:16→14:27)
[2023-06-13 06:51] LABS: Absolute Lymphocyte Count 2.92 X10^3/uL (0.83-4.51); Absolute Neutrophil Count 14.6 X10^3/uL (2.0-7.7); Basophil# 0.07 X10^3/uL; Basophil% 0.3 % (0-1); Eosinophil# 0.48 X10^3/uL; Eosinophils% 2.4 % (0-5); Hematocrit 27.1 % (37-47); Hemoglobin 8.3 g/dL (12.0-15.0); Lymphocyte # 2.92 X10^3/ul (0.83-4.51); Lymphocyte % 14.4 % (19-41); Mean Corp Hgb Conc 30.6 g/dL (32-36); Mean Corpuscular Hgb 28.1 pg (27.0-32.0); Mean Corpuscular Volume 91.9 fL (81-99); Monocyte# 1.67 X10^3/uL; Monocyte% 8.3 % (0-10); NRBC Flagged by Analyzer 0 % (0-5); Neutrophil # 14.64 X10^3/uL (2.7-7.7); Neutrophil % 72.5 % (47-70); POSITIVE DIFFERENTIAL YES; Platelet Count 700 K/mm3 (150-450); RBC Distribution Width SD 42.9 fl (35.1-43.9); Red Blood Count 2.95 M/mm3 (4.2-5.4); White Blood Count 20.2 K/mm3 (4.4-11.0)
[2023-06-13 06:59] LABS: Differential Indicated SCAN CRITERIA MET
[2023-06-13] MEDS: Ipratropium/Albuterol Sulfate 3 ML AMPUL.NEB INHALATION ×4 (07:00→23:03)
[2023-06-13 07:51] LABS: Platelet Estimate MKD INC (ADEQ)
[2023-06-13] MEDS: Metoprolol Tartrate 25 MG Tablet PO ×2 (08:13→22:44)
[2023-06-13] MEDS: busPIRone 5 MG Tablet 10 MG PO ×2 (08:13→22:44)
[2023-06-13] MEDS: Pantoprazole Sodium 40 MG in 0.9% Normal Saline (100mL MB+) 100 ML 330 MG IV ×2 (09:23→22:43)
[2023-06-13] MEDS: Lidocaine 2% (20 ml mdv) 20 ML Vial INFILT (13:27)
--- NOTE | 2023-06-13 13:30 | RAD_ITS ---
STUDY: X-RAY CHEST REASON FOR EXAM: Female, 68 years old. Post thoracentesis TECHNIQUE: AP inspiration and expiration views. COMPARISON: Comparison is made with prior study dated June 12, 2023. FINDINGS: The patient is status post right thoracentesis. There is no evidence of pneumothorax. RAD/Chest Insp/Exp 2 View IMPRESSION: Status post right thoracentesis. There is no evidence of pneumothorax. Electronically Signed: Michael Gaxiola MD at 13:44 EST ,
--- NOTE | 2023-06-13 13:49 | PRO.PCM_ITS ---
Procedure Report Date of Procedure: 06/13/23 Assessment & Plan Assessment/Plan (1) Pleural effusion, right: PLAN: PROCEDURE: Ultrasound Guided Thoracentesis ORDERING PROVIDER: Dr. Kapil Doyle INDICATION: Female, 68 years old. Right pleural effusion. PROVIDER: VALAIRE Murphy PROCEDURE: The risks, benefits, and alternatives to the procedure were explained to the patient. The specific risks of bleeding, infection, and pneumothorax requiring chest tube insertion were discussed and accepted. Written informed consent was obtained. The patient was placed in the sitting, upright position. Ultrasonographic evaluation of the bilateral lower pleural spaces was carried out. A small pocket with evident loculations was identified in the right pleural space.The overlying skin was prepped and draped in sterile fashion. 2% lidocaine was administered subcutaneously for local anesthesia. Under ultrasound guidance, a 5-Bulgarian thoracentesis needle/catheter system was advanced into the right posterior lower pleural fluid collection. 70 ml of clear light red colored fluid was drained by manual aspiration and sent to lab for analysis, as per requesting physician. The catheter was removed, and a sterile dressing was applied. The patient tolerated the procedure well. A chest x-ray was ordered. IMPRESSION: Successful ultrasound-guided thoracentesis of right pleural effusion. Suspect loculation of remaining effusion. Procedures Radiology Radiology US Procedures: 26500 Thoracentesis
--- NOTE | 2023-06-13 15:14 | PN.HOSP_ITS ---
Reason for Visit Reason for Visit: Diagnoses Pneumonia, unspecified organism (06/02/23) Chronic obstructive pulmonary disease with (acute) exacerbation (06/02/23) Pleural effusion, not elsewhere classified (06/02/23) Pleural effusion in other conditions classified elsewhere (06/02/23) Gastrointestinal hemorrhage, unspecified (06/02/23) Subjective Subjective Patient seen at bedside this morning. Sitting in bedside chair. Patient was on her home 4 L nasal cannula satting in the mid 90s, but she had noticeable dyspnea with exertion and reported increased work of breathing at baseline this morning. Patient denies any fevers or chills, chest pain. States that she is hoping that the right-sided thoracentesis today will be helpful for her. She has not gotten out of bed much and has felt very fatigued over the past few days. She otherwise denies any acute pain or discomfort. Objective Data Objective Data Vital Signs: Vital Signs Temp Pulse Resp BP Pulse Ox O2 Del Method O2 Flow Rate 98.5 F 69 16 132/68 H 99 Nasal Cannula 4 06/13/23 14:30 06/13/23 14:30 06/13/23 14:30 06/13/23 14:30 06/13/23 14:30 06/13/23 14:30 06/13/23 14:30 FiO2 45 06/09/23 23:00 Oxygen Flow Rate (L/min) 4 Oxygen Delivery Method Nasal Cannula Weight: 70.4 kg Body Mass Index (BMI) 26.6 Intake & Output: Intake and Output for Last 24 Hours 06/11/23 06/12/23 06/13/23 23:59 23:59 23:59 Intake Total 2004.75 / 2004.75 895.25 / 895.25 625 / 625 Output Total 2430 / 2980 1400 / 1400 775 / 775 Balance -425.25 / -975.25 -504.75 / -504.75 -150 / -150 Lab / Micro Data 06/13/23 06:15 06/11/23 06:40 Labs: Laboratory Results - last 24 hr 06/13/23 06:15: WBC 20.2 H, RBC 2.95 L, Hgb 8.3 L, Hct 27.1 L, MCV 91.9, MCH 28.1, MCHC 30.6 L, RDW Std Deviation 42.9, RDW Coeff of Laly 13.0, Plt Count 700 H, MPV 10.0, Immature Gran % (Auto) 2.100 H, Neut % (Auto) 72.5 H, Lymph % (Auto) 14.4 L, [place] % (Auto) 8.3, Eos % (Auto) 2.4, Baso % (Auto) 0.3, Absolute Neuts (auto) 14.6 H, Absolute Lymphs (auto) 2.92, Nucleated RBC % 0, Diff Path Review May foll, Platelet Estimate [employer] Micro: Microbiology 06/07/23 Unknown Fluid - Pleural (Lung) Gram Stain - Final 06/07/23 Unknown Fluid - Pleural (Lung) Body Fluid Culture - Final Culture exhibits no growth. 06/07/23 Unknown Fluid - Pleural (Lung) Anaerobic Culture - Final No growth in 5 days. 06/08/23 10:15 Stool Stool Occult Blood (ROSAURA) - Final Occult Blood Positive 06/02/23 10:47 Blood Culture (Wb) - Right Hand Blood Culture - Final No growth in 5 days. 06/02/23 09:26 Blood Culture (Wb) - Left Hand Blood Culture - Final No growth in 5 days. 06/02/23 10:34 Urine, Catheterized Urine Culture - Final Culture exhibits no growth. 06/03/23 09:15 Mucosa - Nose Coronavirus COVID-19 PCR - Final 06/02/23 10:34 Urine, Random Legionella Antigen - Final 06/02/23 10:34 Urine, Random Streptococcus pneumoniae Antigen (M - Final 06/02/23 11:22 Mucosa - Nasopharyngeal Respiratory Panel (PCR) - Final Rhythm Strip Rhythm Strip: Sinus Rhythm Rate: 70 Ectopy: None Physical Exam Const alert, oriented x3 and no apparent distress Constitutional Narrative: Elderly female, chronically ill-appearing, sitting comfortably in bedside chair. Noticeable dyspnea with conversation, mild distress due to shortness of breath. General Appearance: cooperative HEENT normocephalic, head/scalp atraumatic, hearing grossly normal bilaterally, nasal mucous membranes and turbinates normal and moist oral mucous membranes Eyes PERRL, EOMs intact bilaterally and conjunctivae normal Neck full ROM, no lymphadenopathy and supple Lymph Lymphatic: no lymphadenopathy noted Chest inspection of chest normal Resp Resp Narrative: Decreased breath sounds bilaterally, worst at right lung base. No wheezing noted. Cardio regular rate, regular rhythm, no murmurs and peripheral pulses 2+ throughout GI normal to inspection, nondistended, normoactive bowel sounds, soft to palpation, non-tender and non-distended Back/Spine normal ROM Extremity normal to inspection, full ROM and no pedal edema Skin no rashes or lesions noted Neuro moves all extremities and no focal motor deficits Speech: speech normal Psych Mood & Affect: anxious Assessment & Plan Assessment/Plan (1) Parapneumonic effusion: (2) Acute exacerbation of chronic obstructive pulmonary disease (COPD): PLAN: Plan Patient is a 68-year-old female who presented to [facility] ED on 06/02/2023 with worsening shortness of breath. 1. Acute on chronic combined respiratory failure secondary to COPD with exacerbation Requires 3 L nasal cannula at baseline, follows with [facility] pulmonology. Suspected exacerbation secondary to right lower lobe pneumonia. ? Pulmonology following. Completed 10-day course of IV antibiotics on 06/13. S/p thoracentesis with only 70 cc fluid removed as noted below. Continue to spot dose Lasix as needed. Follow-up cultures from thoracentesis. 2. Sepsis secondary to right lower lobe community-acquired pneumonia with parapneumonic effusion Patient presented with sepsis suspected due to right lower lobe pneumonia with related organ dysfunction as evidenced by need for NIPPV support. Appropriate hemodynamic response after fluid resuscitation. Previous cultures from pleural fluid negative. Antigen testing and viral panels negative. ? S/p thoracentesis on 06/13 with only 70 cc fluid removed. Per radiology, appears the patient could have some degree of loculation within the pleural space. Completed antibiotics as noted above. Appreciate pulmonology assistance for further recommendations. 3. Acute blood loss anemia secondary to acute upper GI bleed, stable Had 2 g hemoglobin drop on 06/08, suspected due to GI bleed. S/p EGD that showed grade a erosive esophagitis, hiatal hernia and duodenal ulcer with visible vessel that was cauterized. ? Hemoglobin remains stable, monitor daily CBC. Continue PPI twice daily. Ap preciate further GI recommendations. Chronic medical conditions: ? Anxiety: Continue home BuSpar. DVT prophylaxis: SCDs CODE STATUS: Full code, verified Expected disposition: Home with home health care versus SNF, TBD Total clinical time spent by myself addressing the patient's medical issues, re viewing all the data, and collaborating with patient's care team: 35 minutes. Charges/Coding Visit Charges Inpatient E&M: 98358 Subs Hosp L2
[2023-06-13 17:18] LABS: Allen Test Positive; Base Excess 12 mmol/L (-2 to +2); Bicarbonate 35.4 mmol/L (22-26); Blood Gas Specimen Type ART; Mode Not entered; O2 Delivery Device Cannula; PO2 80 mmHG (75-100); SITE L Radial; SO2 96 % (95-99); Total Carbon Dioxide 37 mmol/L; pCO2 48.2 mmHg (35-45); pH 7.47 (7.35-7.45)
[2023-06-13] MEDS: Montelukast 10 MG Tablet PO (22:44)
[2023-06-13] MEDS: MELATONIN 10 MG TABLET PO (22:44)
[2023-06-14] VITALS (12 sets, daily range): BP systolic 122–135; BP diastolic 46–76; PULSE 68–84; RESP 16–20; TEMP 36.8–37.4; O2SAT 93–98; BMI 25.9
[2023-06-14] MEDS: Ipratropium/Albuterol Sulfate 3 ML AMPUL.NEB INHALATION ×6 (03:05→23:57)
[2023-06-14 07:31] LABS: Pathologist Review Reviewed
[2023-06-14 07:53] LABS: Pathologist Review Reviewed
--- NOTE | 2023-06-14 08:39 | ST.MBS ---
Modified Barium Swallow Patient Information Study Date: 06/14/23 Study Time: 09:00 Direct Billable Minutes: 104 Total Minutes procedure & reportin Diagnosis: Pleural effusion, right J90, Community acquired PNA of RLL J18.9 Referring Physician: Td Pillai Reason for Referral: Objectively assess swallow function, assess risk for aspiration, and determine recommendations for least restrictive diet textures and compensatory strategies to improve safety of swallow. Medical History: She presented to [facility] ED on 06/02/2023 with a complaint of shortness of breath. She had been seen in the ED ~2 days prior to this admission and was diagnosed with pneumonia, and she was sent home on antibiotics. She continued to decline, but hadn't started the medications she was ordered. Chest x-ray showed small right pleural effusion with a right basilar infiltrate. She was placed on BiPAP and admitted to be managed for acute hypoxic respiratory failure due to community-acquired pneumonia. HYDRAULIC ROCKBREAKER OPERATOR consulted due to concerns for swallowing difficulty. BSE not able to be completed due to patient politely declining oral intake prior to thoracentesis due to discomfort from shortness of breath. The patient reported concerns for choking on her secretions this morning, trouble swallowing carbonated drinks, and trouble swallowing cold liquids. HYDRAULIC ROCKBREAKER OPERATOR recommended the patient be NPO (ok for sips of water and meds whole in , frequent oral care) with MBSS 06/14/2023 to objectively assess swallow function and aspiration risk after thorough chart review and given the following: RLL PNA, patient complaints for difficulty managing her secretions, and patient complaints for trouble swallowing. Patient and RN were both agreeable to recommendations. EGD 06/09/2023 revealed LA Grade A erosive esophagitis with no bleeding, Medium-sized hiatal hernia, Non-bleeding gastric ulcers with no stigmata of bleeding, Oozing duodenal ulcer with a visible vessel - Injected - Treated with argon plasma coagulation, Non-bleeding duodenal ulcers with no stigmata of bleeding - Injected - Treated with a heater probe. PMH: Anxiety, Asthma, Benign essential hypertension, Benign essential tremor, COPD, Former tobacco use, Migraines, On home oxygen therapy, Pneumonia due to COVID-19 virus. Current Diet Ordered: NPO - ok for water and meds whole in Mental Status: WNL Penetration-Aspiration Scale Penetration-Aspiration Scale: OBJECTIVE ASSESSMENT OF SWALLOW FUNCTION (QUANTITATIVE ? PER TRIAL): PENETRATION / ASPIRATION SCALE (WILBURN): 1 = does not enter airway 2 = enters airway/above vocal folds/ejected 3 = enters airway/above vocal folds/not ejected 4 = enters airway/contacts vocal folds/ejected 5 = enters airway/contacts vocal folds/not ejected 6 = enters airway/below vocal folds/ejected 7 = enters airway/below vocal folds/not ejected despite effort 8 = enters airway/below vocal folds/no effort VIDEOFLOROSCOPIC SCALE SCORE (WILBURN): Grade I = aspiration of material that has penetrated into the laryngeal vestibule, intact cough reflex Grade II = aspiration < 10 % of the bolus, intact cough reflex Grade III = aspiration of < 10 % of the bolus, reduced cough reflex or aspiration of > 10 % of the bolus, intact cough reflex Grade IV = aspiration of > 10 % of the bolus, reduced cough reflex Penetration-Aspiration Scale Score Thin Liquid via teaspoon: Result: 1= does not enter airway Thin Liquid via teaspoon Trial 2: Result: 1= does not enter airway Thin Liquid via small single sip: cup: Result: 1= does not enter airway Home Garden Thick Liquid via small single sip: cup: Result: 1= does not enter airway Pudding via teaspoon: Result: 1= does not enter airway Comment: Esophageal screen - retention of contrast in the lower esophagus with retrograde flow to the mid esophagus, little to no emptying through the lower esophageal sphincter. Thin Liquid via single sip: straw: Result: 1= does not enter airway Comment: Liquid wash was minimally effective in clearing pharyngeal pudding residue. Chin tuck was attempted to clear vallecula, but was not effective. Effortful swallow was attempted to clear pharyngeal residues, but was not effective. Pudding via teaspoon Trial 2: Result: 1= does not enter airway Thin Liquid via single sip: straw Trial 2: Result: 1= does not enter airway 1/4 Cookie: Result: 1= does not enter airway Thin Liquid via single sip: straw Trial 3: Result: 1= does not enter airway Comment: Liquid wash was somewhat effective in clearing pharyngeal cookie residues. Esophageal screen - retention of contrast in lower esophagus with retrograde flow and eventual clearance through the lower esophageal sphincter. Oral Phase Labial Seal: No Labial Escape Tongue Control During Bolus Hold: Posterior escape of less than half of bolus Bolus Preparation/Mastication: Timely and efficient chewing and mashing Bolus Transport/Lingual Motion: Delayed initiation of tongue motion Oral Residue: Trace residue lining oral structures Pharyngeal Phase Initiation of Pharyngeal Swallow: Bolus head at posterior laryngeal surgace of epiglottis Soft Palate Elevation: No bolus between soft palate and pharyngeal wall Laryngeal Elevation: Comp. Superior move thyroid cart w/comp. apprx arytenoid cart-epig pet Anterior Hyoid Excursion: Partial anterior movement Epiglottic Movement: Partial inversion Laryngeal Vestibule Closure at Height of Swallow: Complete; no air/contrast in laryngeal vestibule Pharyngeal Stripping Wave: Absent Pharyngoesophageal Segment Opening: Parital distension and partial duration; parital obstruction of flow Tongue Base Retraction: Wide column of contrast between tongue base & post. pharyngeal wall Pharyngeal Residue: Majority of contrast within or on pharyngeal structures (50% of pudding and cookie bolus in the pharynx after the swallow) Diagnosis/Impression Diagnosis: Pharyngoesophageal dysphagia R13.14 Impression: Overall, the patient's oral phase of the swallow is WNL. She did have mild delay with tongue motion for A-P transport. Timely and effective chewing of cookie. Trace oral residues after the swallow. The pharyngeal phase is primarily marked by... -Moderately decreased tongue base retraction, UES opening/duration, and no pharyngeal stripping wave, resulting in moderate pharyngeal residues after the swallow, most notable with pudding and cookie contrast. Liquid wash was somewhat effective at clearing cookie contrast. With each additional bite of pudding or cookie (3 total), pharyngeal residues remained fairly consistent rather than compounding each bite. -Good laryngeal elevation and airway closure after the swallow with no aspiration observed during the study; however, the patient is at risk for aspiration after the swallow of moderate pharyngeal residues. The esophageal phase is primarily marked by... -Retention of pudding and liquids in the lower esophagus with retrograde flow to the mid esophagus. Emptying of liquids was slow, but it was effective in clearing the lower esophagus of contrast. Recommendations Diet: Mechanical Soft Textures (Soft and bite size textures - IDDSI Level 6) and Thin Liquids Comment: Frequent oral care Compensatory Strategies: Small Bites, Small Sips, Slow Rate, Alternate bites/solids and sips/liquids (1:1 ratio), Sitting upright and Remain sitting upright for 30 minutes after PO intake Supervision: Distant Supervision Recommend Repeat Modified Barium Swallow: TBD Need for Skilled Speech Therapy Services: Yes Comment: Will recommend the patient for dysphagia therapy to address deficits in pharyngeal swallow function. Will recommend the patient for pharyngeal strengthening to improve anterior hyoid excursion, tongue base retraction, pharyngeal motility, and UES opening/duration (Martina, Papa, Effortful swallow, Shaker). Recommended Referrals: GI Consult (HYDRAULIC ROCKBREAKER OPERATOR to reach out to Dr. Antunez re: possibility for intervention regarding partial UES opening/duration.) Education Completed: 1. Described result of evaluation., 2. Pt understands evaluation & agrees with goals and treatment plan. and 5. Patient demonstrates recommended strategies. Status Active ST Patient: Active Contact Information [facility] Speech Therapy:: Nathaly Jordan M.A. [facility]-HYDRAULIC ROCKBREAKER OPERATOR Speech-Language Pathologist [facility] [address] [place] [address] [email or web address] [phone]
[2023-06-14] MEDS: Pantoprazole Sodium 40 MG in 0.9% Normal Saline (100mL MB+) 100 ML 330 MG IV ×2 (10:30→21:22)
[2023-06-14] MEDS: busPIRone 5 MG Tablet 10 MG PO ×2 (10:31→21:11)
[2023-06-14] MEDS: Metoprolol Tartrate 25 MG Tablet PO ×2 (10:31→21:11)
--- NOTE | 2023-06-14 12:01 | CASEMGMT ---
SW met with patient as physician feels patient would benefit from SNF stay. SW introduced self and role at [facility]. Patient said she wants to go home with home health. Eliana THOMPSON
--- NOTE | 2023-06-14 17:46 | PN.HOSP_ITS ---
Reason for Visit Reason for Visit: Diagnoses Pneumonia, unspecified organism (06/02/23) Chronic obstructive pulmonary disease with (acute) exacerbation (06/02/23) Pleural effusion, not elsewhere classified (06/02/23) Pleural effusion in other conditions classified elsewhere (06/02/23) Gastrointestinal hemorrhage, unspecified (06/02/23) Subjective Subjective Patient seen at bedside this morning. States she feels improved this morning compared to yesterday. Had no acute events overnight. Patient tolerated the MBSS fine yesterday, has been eating her modified diet this morning without issue. States her breathing is improved this morning at rest. She has however not tried to get up or move around much since yesterday. She denies any fevers or chills. Patient states she has good help at home, would like to go home with home health care as opposed to going to a rehab facility on discharge. No other acute concerns this morning. Objective Data Objective Data Vital Signs: Vital Signs Temp Pulse Resp BP Pulse Ox O2 Del Method O2 Flow Rate 98.3 F 75 18 122/54 H 93 Nasal Cannula 3 06/14/23 15:20 06/14/23 15:20 06/14/23 15:20 06/14/23 15:20 06/14/23 15:20 06/14/23 15:20 06/14/23 15:20 FiO2 45 06/09/23 23:00 Oxygen Flow Rate (L/min) 3 Oxygen Delivery Method Nasal Cannula Weight: 68.991 kg Body Mass Index (BMI) 25.9 Intake & Output: Intake and Output for Last 24 Hours 06/12/23 06/13/23 06/14/23 23:59 23:59 23:59 Intake Total 895.25 / 895.25 768 / 768 910 / 910 Output Total 1400 / 1400 1025 / 1175 1300 / 1300 Balance -504.75 / -504.75 -257 / -407 -390 / -390 Lab / Micro Data 06/13/23 06:15 06/11/23 06:40 Labs: Laboratory Results - last 24 hr 06/12/23 06:27: Diff Path Review Reviewed 06/13/23 06:15: Diff Path Review Reviewed Micro: Microbiology 06/13/23 13:44 Fluid - Pleural (Lung) Gram Stain - Final 06/13/23 13:44 Fluid - Pleural (Lung) Body Fluid Culture - Preliminary No growth-Final to follow 06/07/23 Unknown Fluid - Pleural (Lung) Gram Stain - Final 06/07/23 Unknown Fluid - Pleural (Lung) Body Fluid Culture - Final Culture exhibits no growth. 06/07/23 Unknown Fluid - Pleural (Lung) Anaerobic Culture - Final No growth in 5 days. 06/08/23 10:15 Stool Stool Occult Blood (ROSAURA) - Final Occult Blood Positive 06/02/23 10:47 Blood Culture (Wb) - Right Hand Blood Culture - Final No growth in 5 days. 06/02/23 09:26 Blood Culture (Wb) - Left Hand Blood Culture - Final No growth in 5 days. 06/02/23 10:34 Urine, Catheterized Urine Culture - Final Culture exhibits no growth. 06/03/23 09:15 Mucosa - Nose Coronavirus COVID-19 PCR - Final 06/02/23 10:34 Urine, Random Legionella Antigen - Final 06/02/23 10:34 Urine, Random Streptococcus pneumoniae Antigen (M - Final 06/02/23 11:22 Mucosa - Nasopharyngeal Respiratory Panel (PCR) - Final Radiography Diagnostic Testing: Radiology Impression Chest X-Ray 06/13/23 13:30 IMPRESSION: Status post right thoracentesis. There is no evidence of pneumothorax. Electronically Signed: Michael Gaxiola MD at 13:44 EST Reading Location ID and State: [address] [place] [address] , Service support , Rhythm Strip Rhythm Strip: Sinus Rhythm Rate: 70 Ectopy: None Physical Exam Const alert, oriented x3 and no apparent distress Constitutional Narrative: Elderly female, chronically ill-appearing, sitting comfortably in bedside chair. No conversational dyspnea today. General Appearance: cooperative HEENT normocephalic, head/scalp atraumatic, hearing grossly normal bilaterally, nasal mucous membranes and turbinates normal and moist oral mucous membranes Eyes PERRL, EOMs intact bilaterally and conjunctivae normal Neck full ROM, no lymphadenopathy and supple Lymph Lymphatic: no lymphadenopathy noted Chest inspection of chest normal Resp Resp Narrative: Decreased breath sounds bilaterally, similar to previous. No wheezing noted. No increased work of breathing noted at rest. Cardio regular rate, regular rhythm, no murmurs and peripheral pulses 2+ throughout GI normal to inspection, nondistended, normoactive bowel sounds, soft to palpation, non-tender and non-distended Back/Spine normal ROM Extremity normal to inspection, full ROM and no pedal edema Skin no rashes or lesions noted Neuro moves all extremities and no focal motor deficits Speech: speech normal Psych affect normal Assessment & Plan Assessment/Plan (1) Parapneumonic effusion: (2) Acute exacerbation of chronic obstructive pulmonary disease (COPD): PLAN: Plan Patient is a 68-year-old female who presented to [facility] ED on 06/02/2023 with worsening shortness of breath. 1. Acute on chronic combined respiratory failure secondary to COPD with exacerbation, improving Requires 3 L nasal cannula at baseline, follows with [facility] pulmonology. Suspected exacerbation secondary to right lower lobe pneumonia. ? Pulmonology following. Completed 10-day course of IV antibiotics on 06/13. S/p thoracentesis on 06/13 with only 70 cc fluid removed as noted below, cultures and Gram stain negative to date. Patient is back to baseline 3 L nasal cannula, satting well at rest. Hopeful for discharge home tomorrow on baseline 3 L with outpatient pulmonology follow-up as needed. 2. Sepsis secondary to right lower lobe community-acquired pneumonia with parapneumonic effusion, resolved Patient presented with sepsis suspected due to right lower lobe pneumonia with related organ dysfunction as evidenced by need for NIPPV support. Appropriate hemodynamic response after fluid resuscitation. Previous cultures from pleural fluid negative. Antigen testing and viral panels negative. ? S/p thoracentesis on 06/13 with only 70 cc fluid removed as noted above, studies negative to this point. Completed antibiotics as noted above. Monitor. 3. Acute blood loss anemia secondary to acute upper GI bleed, stable Had 2 g hemoglobin drop on 06/08, suspected due to GI bleed. S/p EGD that showed grade a erosive esophagitis, hiatal hernia and duodenal ulcer with visible vessel that was cauterized. ? Hemoglobin remains stable, monitor daily CBC. Continue PPI twice daily. 4. Episode of atrial fibrillation with RVR, resolved Patient had episode of A-fib with RVR on 06/03, resolved by 06/04 with IV beta- vincenzo therapy. Echo on 06/03 showed EF 65%, stage I diastolic dysfunction, no other abnormalities. Patient was placed on Eliquis for prophylaxis, but unfortunately had GI bleed as noted above. ? Given that this was an apparent transient episode of A-fib, will hold on Eliquis going home. Will plan to send home with event monitor. Continue Lopressor 25 mg twice daily. Chronic medical conditions: ? Anxiety: Continue home BuSpar. DVT prophylaxis: SCDs CODE STATUS: Full code, verified Expected disposition: Home with home health care, tomorrow Total clinical time spent by myself addressing the patient's medical issues, reviewing all the data, and collaborating with patient's care team: 35 minutes. Charges/Coding Visit Charges Inpatient E&M: 19522 Subs Hosp L2
[2023-06-14] MEDS: MELATONIN 10 MG TABLET PO (21:11)
[2023-06-14] MEDS: Montelukast 10 MG Tablet PO (21:12)
[2023-06-14] MEDS: 0.9% Saline Lock 10 ML Syringe IV (21:16)
[2023-06-15] VITALS (17 sets, daily range): BP systolic 100–121; BP diastolic 44–70; PULSE 71–85; RESP 16–18; TEMP 36.5–37.3; O2SAT 95–99; BMI 25.9
[2023-06-15] MEDS: Ipratropium/Albuterol Sulfate 3 ML AMPUL.NEB INHALATION ×6 (03:22→23:30)
[2023-06-15 08:07] LABS: Absolute Neutrophil Count 9.2 X10^3/uL (2.0-7.7); Basophil# 0.02 X10^3/uL; Basophil% 0.1 % (0-1); Eosinophil# 0.51 X10^3/uL; Eosinophils% 3.8 % (0-5); Hemoglobin 6.4 g/dL (12.0-15.0); Lymphocyte % 15.6 % (19-41); Mean Corp Hgb Conc 30.5 g/dL (32-36); Mean Corpuscular Hgb 28.4 pg (27.0-32.0); Mean Corpuscular Volume 93.3 fL (81-99); Mean Platelet Vol. 10.4 fl (6.2-12.0); Monocyte# 1.44 X10^3/uL; Monocyte% 10.7 % (0-10); NRBC Flagged by Analyzer 0 % (0-5); Neutrophil # 9.24 X10^3/uL (2.7-7.7); Neutrophil % 68.7 % (47-70); Platelet Count 605 K/mm3 (150-450); RBC Distribution Width CV 13.7 % (11.6-14.6); RBC Distribution Width SD 45.6 fl (35.1-43.9); Red Blood Count 2.25 M/mm3 (4.2-5.4); White Blood Count 13.5 K/mm3 (4.4-11.0)
--- NOTE | 2023-06-15 09:42 | CASEMGMT ---
Addendum entered by Bhavana Ignacio 06/16/23 13:10: Discharge Planning [facility] accepted patient. SOC 06/17/23. Bhavana Ignacio, Discharge Planning Asst. Addendum entered by Bhavana Ignacio 06/15/23 11:23: Discharge Planning [facility] declined referral. Referrals sent to [facility] and [facility] via [facility]. Bhavana Ignacio, Discharge Planning Asst. Original Note: Discharge Planning HH referral sent to [facility] via [facility]. Bhavana Ignacio, Discharge Planning Asst.
[2023-06-15] MEDS: Pantoprazole Sodium 40 MG in 0.9% Normal Saline (100mL MB+) 100 ML 330 MG IV ×2 (10:11→21:54)
[2023-06-15] MEDS: busPIRone 5 MG Tablet 10 MG PO ×2 (10:13→21:53)
[2023-06-15] MEDS: Metoprolol Tartrate 25 MG Tablet PO ×2 (10:13→21:54)
[2023-06-15 10:42] LABS: Hematocrit 21.6 % (37-47); Hemoglobin 6.7 g/dL (12.0-15.0); Mean Corpuscular Hgb 28.9 pg (27.0-32.0); Mean Corpuscular Volume 93.1 fL (81-99); Platelet Count 670 K/mm3 (150-450); RBC Distribution Width CV 13.6 % (11.6-14.6); RBC Distribution Width SD 44.6 fl (35.1-43.9); Red Blood Count 2.32 M/mm3 (4.2-5.4); White Blood Count 15.6 K/mm3 (4.4-11.0)
[2023-06-15] MEDS: 0.9% Saline Lock 10 ML Syringe IV ×2 (11:01→21:55)
[2023-06-15] MEDS: predniSONE 20 MG Tablet 40 MG PO (11:06)
--- NOTE | 2023-06-15 11:57 | CHAPLAIN ---
Type of Pastoral Visit ___ Initial Visit _x__ Follow-up Visit ___ On-call Visit ___ General Patient Visit ___ Spiritual Assessment ___ Family Conference ___ Bereavement ___ Rapid Response ___ Code Blue ___ Other (describe below) Pastoral Care Referral From _x__ Patient ___ Family ___ Nurse ___ Physician ___ Child Welfare Specialist ___ Organ Teacher ___ Other (describe below) Sacrament/Intervention _x__ Active listening ___ Anointing ___ Jew ___ Bereavement ___ Communion _x__ [place] exploration ___ ___ Life review _x__ Prayer ___ Reconciliation ___ Sacrament of Sick _x__ Supportive presence ___ Wedding ___ Other (describe below) Pastoral Comments patient reports that her improvement is coming day by day and I am content with that as I just want to listen to what they say; pt has silverio, balloons, and Amy decorations in the room from friends, family, and work - I am so blessed; pt talks about how grateful she is for the support and for the prayers; pt identifies herself as a believer who relies on God and prayer; pt welcomes prayer and presence of this chiller tender for support today; no other concerns
--- NOTE | 2023-06-15 15:00 | CASEMGMT ---
JAMI GUERRERO updated by discharge production planning supervisor that several [facility] agencies have declined patient. JAMI GUERRERO reached out to [facility] to see if they could submit for one time contract with insurance. [facility] to submit for one time contract and update with approval.
--- NOTE | 2023-06-15 17:17 | PN.HOSP_ITS ---
Reason for Visit Reason for Visit: Diagnoses Pneumonia, unspecified organism (06/02/23) Chronic obstructive pulmonary disease with (acute) exacerbation (06/02/23) Pleural effusion, not elsewhere classified (06/02/23) Pleural effusion in other conditions classified elsewhere (06/02/23) Gastrointestinal hemorrhage, unspecified (06/02/23) Subjective Subjective Patient seen at bedside this morning. Was sitting comfortably in bedside chair, conversing normally, in no acute distress. Patient states she continues to feel well this morning, similar to yesterday. Had no fevers or chills overnight. Feels her strength is improving, would like to go home with home health care on discharge. Hoping to go home soon. No other acute concerns this morning. Objective Data Objective Data Vital Signs: Vital Signs Temp Pulse Resp BP Pulse Ox O2 Del Method O2 Flow Rate 99.1 F 79 16 103/44 L 98 Nasal Cannula 3 06/15/23 13:09 06/15/23 15:18 06/15/23 15:18 06/15/23 13:09 06/15/23 13:09 06/15/23 16:20 06/15/23 16:20 FiO2 45 06/09/23 23:00 Oxygen Flow Rate (L/min) 3 Oxygen Delivery Method Nasal Cannula Weight: 69 kg Body Mass Index (BMI) 25.9 Intake & Output: Intake and Output for Last 24 Hours 06/13/23 06/14/23 06/15/23 23:59 23:59 23:59 Intake Total 768 / 768 1020 / 1020 550 / 550 Output Total 1025 / 1175 1575 / 1575 525 / 525 Balance -257 / -407 -555 / -555 Lab / Micro Data 06/15/23 10:25 06/11/23 06:40 Labs: Laboratory Results - last 24 hr 06/15/23 07:15: WBC 13.5 H, RBC 2.25 L, Hgb 6.4 L, Hct 21.0 L, MCV 93.3, MCH 28.4, MCHC 30.5 L, RDW Std Deviation 45.6 H, RDW Coeff of Laly 13.7, Plt Count 605 H, MPV 10.4, Immature Gran % (Auto) 1.100 H, Neut % (Auto) 68.7, Lymph % (Auto) 15.6 L, [place] % (Auto) 10.7 H, Eos % (Auto) 3.8, Baso % (Auto) 0.1, Absolute Neuts (auto) 9.2 H, Absolute Lymphs (auto) 2.10, Nucleated RBC % 0 06/15/23 10:25: WBC 15.6 H, RBC 2.32 L, Hgb 6.7 L, Hct 21.6 L, MCV 93.1, MCH 28.9, MCHC 31.0 L, RDW Std Deviation 44.6 H, RDW Coeff of [place] 13.6, Plt Count 670 H, MPV 10.0, Blood Type O NEGATIVE, Antibody Screen NEGATIVE, Crossmatch See Detail Micro: Microbiology 06/13/23 13:44 Fluid - Pleural (Lung) Gram Stain - Final 06/13/23 13:44 Fluid - Pleural (Lung) Body Fluid Culture - Preliminary No growth-Final to follow 06/07/23 Unknown Fluid - Pleural (Lung) Gram Stain - Final 06/07/23 Unknown Fluid - Pleural (Lung) Body Fluid Culture - Final Culture exhibits no growth. 06/07/23 Unknown Fluid - Pleural (Lung) Anaerobic Culture - Final No growth in 5 days. 06/08/23 10:15 Stool Stool Occult Blood (ROSAURA) - Final Occult Blood Positive 06/02/23 10:47 Blood Culture (Wb) - Right Hand Blood Culture - Final No growth in 5 days. 06/02/23 09:26 Blood Culture (Wb) - Left Hand Blood Culture - Final No growth in 5 days. 06/02/23 10:34 Urine, Catheterized Urine Culture - Final Culture exhibits no growth. 06/03/23 09:15 Mucosa - Nose Coronavirus COVID-19 PCR - Final 06/02/23 10:34 Urine, Random Legionella Antigen - Final 06/02/23 10:34 Urine, Random Streptococcus pneumoniae Antigen (M - Final 06/02/23 11:22 Mucosa - Nasopharyngeal Respiratory Panel (PCR) - Final Rhythm Strip Rhythm Strip: Sinus Rhythm Rate: 70 Ectopy: None Physical Exam Const alert, oriented x3 and no apparent distress Constitutional Narrative: Elderly female, chronically ill-appearing, sitting comfortably in bedside chair. No conversational dyspnea today. General Appearance: cooperative HEENT normocephalic, head/scalp atraumatic, hearing grossly normal bilaterally, nasal mucous membranes and turbinates normal and moist oral mucous membranes Eyes PERRL, EOMs intact bilaterally and conjunctivae normal Neck full ROM, no lymphadenopathy and supple Lymph Lymphatic: no lymphadenopathy noted Chest inspection of chest normal Resp Resp Narrative: Decreased breath sounds bilaterally, similar to previous. No wheezing noted. No increased work of breathing noted at rest. Cardio regular rate, regular rhythm, no murmurs and peripheral pulses 2+ throughout GI normal to inspection, nondistended, normoactive bowel sounds, soft to palpation, non-tender and non-distended Back/Spine normal ROM Extremity normal to inspection, full ROM and no pedal edema Skin no rashes or lesions noted Neuro moves all extremities and no focal motor deficits Speech: speech normal Psych affect normal Assessment & Plan Assessment/Plan (1) Parapneumonic effusion: (2) Acute exacerbation of chronic obstructive pulmonary disease (COPD): PLAN: Plan Patient is a 68-year-old female who presented to [facility] ED on 06/02/2023 with worsening shortness of breath. 1. Acute on chronic combined respiratory failure secondary to COPD with exacerbation, improving Requires 3 L nasal cannula at baseline, follows with [facility] pulmonology. Suspected exacerbation secondary to right lower lobe pneumonia. Patient required ICU management for several days during admission. Completed 10-day course of IV antibiotics on 06/13. S/p thoracentesis on 06/13 with only 70 cc fluid removed as noted below, cultures and Gram stain negative. ? Pulmonology followed. Continue prednisone with taper, planning for 8 to 10- day taper on discharge. Patient is back to home 3 L nasal cannula and satting well at rest. Hopeful for discharge home tomorrow with home health care. 2. Sepsis secondary to right lower lobe community-acquired pneumonia with parapneumonic effusion, resolved Patient presented with sepsis suspected due to right lower lobe pneumonia with related organ dysfunction as evidenced by need for NIPPV support. Appropriate hemodynamic response after fluid resuscitation. Previous cultures from pleural fluid negative. Antigen testing and viral panels negative. ? S/p thoracentesis on 06/13 with only 70 cc fluid removed as noted above, studies negative to this point. Completed antibiotics as noted above. Monitor. 3. Acute blood loss anemia secondary to acute upper GI bleed Had 2 g hemoglobin drop on 06/08, suspected due to GI bleed. S/p EGD that showed grade a erosive esophagitis, hiatal hernia and duodenal ulcer with visible vessel that was cauterized. Patient has had no recurrence of bleeding since then. However, patient's hemoglobin decreased from 8.3 to 6.4 on 06/15. Repeat hemoglobin 6.7 on confirmatory testing. Patient did have drop of all cell lines with these lab draws, suspect that is the primary etiology of the worsened anemia. No evidence of bleeding at this time. ? S/p 1 unit packed red blood cells given on 06/15, repeat hemoglobin pending. Will follow-up hemoglobin tomorrow morning as well. If hemoglobin responds well and patient remained stable, will likely be okay for discharge home tomorrow, will need repeat CBC shortly after discharge to confirm continued stability. Continue p.o. PPI twice daily. 4. Episode of atrial fibrillation with RVR, resolved Patient had episode of A-fib with RVR on 06/03, resolved by 06/04 with IV beta- vincenzo therapy. Echo on 06/03 showed EF 65%, stage I diastolic dysfunction, no other abnormalities. Patient was placed on Eliquis for prophylaxis, but unfortunately had GI bleed as noted above. ? Given that this was an apparent transient episode of A-fib, will hold on Eliquis going home. Will plan to send home with event monitor. Continue Lopressor 25 mg twice daily. 5. Urinary retention ? Castelan catheter placed in the ICU due to concern for urinary retention at that time. Patient had no previous history of urinary retention. Castelan catheter removed for void trial on 06/15. Monitor bladder scans every 8 hours for now. Hopeful for discharge home without Castelan catheter tomorrow. 6. Debility ? Secondary to prolonged hospitalization and degree of chronic debility at baseline. PT/OT/case management following. Patient has shown fairly good improvement over the past 1 to 2 days. Planning for home with home health care on discharge. Chronic medical conditions: ? Anxiety: Continue home BuSpar. DVT prophylaxis: SCDs CODE STATUS: Full code, verified Expected disposition: Home with home health care, tomorrow Total clinical time spent by myself addressing the patient's medical issues, reviewing all the data, and collaborating with patient's care team: 35 minutes. Charges/Coding Visit Charges Inpatient E&M: 11701 Subs Hosp L2
[2023-06-15] MEDS: Montelukast 10 MG Tablet PO (21:54)
[2023-06-15] MEDS: MELATONIN 10 MG TABLET PO (21:54)
[2023-06-16] VITALS (8 sets, daily range): BP systolic 110–127; BP diastolic 52–56; PULSE 72–76; RESP 16–18; TEMP 36.8–37.1; O2SAT 91–100; BMI 26.1
[2023-06-16] MEDS: Ipratropium/Albuterol Sulfate 3 ML AMPUL.NEB INHALATION ×3 (03:20→10:44)
[2023-06-16 07:53] LABS: Hematocrit 24.3 % (37-47); Hemoglobin 7.6 g/dL (12.0-15.0); Mean Corp Hgb Conc 31.3 g/dL (32-36); Mean Corpuscular Hgb 28.6 pg (27.0-32.0); Mean Corpuscular Volume 91.4 fL (81-99); Mean Platelet Vol. 9.9 fl (6.2-12.0); Platelet Count 558 K/mm3 (150-450); RBC Distribution Width CV 14.2 % (11.6-14.6); RBC Distribution Width SD 45.5 fl (35.1-43.9); Red Blood Count 2.66 M/mm3 (4.2-5.4); White Blood Count 11.2 K/mm3 (4.4-11.0)
[2023-06-16] MEDS: predniSONE 20 MG Tablet 40 MG PO (10:27)
[2023-06-16] MEDS: busPIRone 5 MG Tablet 10 MG PO (10:27)
[2023-06-16] MEDS: Metoprolol Tartrate 25 MG Tablet PO (10:27)
[2023-06-16] MEDS: Pantoprazole Sodium 40 MG in 0.9% Normal Saline (100mL MB+) 100 ML 330 MG IV (10:29)
[2023-06-16 10:33] LABS: Anion Gap 2 (5-15); BUN 12 mg/dL (7-18); BUN/Creat Ratio 23.8 RATIO (10-20); Calcium,Total 8.2 mg/dL (8.5-10.1); Chloride 103 mmol/L (98-107); EST Glomerular Filtration Rate 130 mL/min (>60); Est Glom Filt Rate - Afr Amer 157 mL/min (>60); Estimated Creatinine Clearance 47.14 ml/min; Glucose 87 mg/dL (74-106); Potassium 4.3 mmol/L (3.5-5.1); Sodium Level 140 mmol/L (136-145)
[2023-06-16] MEDS: 0.9% Saline Lock 10 ML Syringe IV (11:57)
--- NOTE | 2023-06-16 12:13 | PCM.DC ---
Discharge Instructions Diet Discharge Diet: No restrictions Activity Discharge Activity: No Restrictions Weight Bearing Status: Full weight bearing Follow Up Care Please Follow Up With: Julio Draper MD When: As needed Test Results: Test results from this visit will be discussed in further detail at your follow-up appointment, if applicable. Pending Tests Upon Discharge: None Discharge Plan Admission Admit Date/Time: 06/02/23 11:01 Attending Provider: Robel Funk Primary Care Provider: Julio Draper Consulting Providers: Gabby Sutherland; Td Pillai Instructions Patient Instructions: JAYCE RN Thoracentesis Dc Additional Instructions / Restrictions: Please complete your steroid taper as follows: ? Prednisone 40 mg for 3 days, followed by 30 mg for 3 days, followed by 20 mg for 3 days, then off steroids. Take your new medications as listed below. Follow-up with your pulmonology doctor in the office soon. Follow-up with your primary care doctor as needed. Discharge Orders/Prescriptions Prescriptions: New buspirone 5 mg Tablet 10 mg PO BID 30 Days Qty: 120 0RF sucralfate 1 gram Tablet 1 g PO 0700,1100,1600 30 Days Qty: 90 0RF metoprolol tartrate 25 mg Tablet 25 mg PO BID 30 Days Qty: 60 0RF prednisone 20 mg tablet 40 mg PO DAILY 3 Days Qty: 6 0RF prednisone 10 mg tablet 30 mg PO DAILY 3 Days Qty: 9 0RF prednisone 20 mg tablet 20 mg PO DAILY 3 Days Qty: 3 0RF pantoprazole [Protonix] 40 mg tablet,delayed release (DR/EC) 40 mg PO BID 30 Days Qty: 60 0RF Continued albuterol sulfate [Ventolin HFA] 1 INHALER inhaler 2 puff inhalation Q4H PRN PRN (Reason: Shortness Of Breath) Patient Comments: shortness of breath montelukast 10 MG tablet 10 mg PO QHS fluticasone propionate 50 mcg/actuation spray,suspension 2 spray INTRANASAL QHS Patient Comments: Use 1 [place] in each nostril once daily. Trelegy Ellipta 100-62.5-25 mcg blister with device 1 inh INHALATION DAILY Patient Comments: Inhale 1 Puff as instructed once daily. Discontinued levofloxacin 750 mg tablet 750 mg PO DAILY Qty: 7 0RF prednisone 20 mg tablet 40 mg PO DAILY 7 Days Qty: 14 0RF oxycodone-acetaminophen [Percocet] 5-325 mg tablet 1 tab PO Q6H PRN (Reason: pain) 4 Days Qty: 14 0RF Referrals / Follow Up: Julio Draper MD [Primary Care Provider] - Disposition Disposition (needs filled in before D/C Order can be placed): Home Health Service
--- NOTE | 2023-06-16 12:21 | PCM.DC.SUM ---
Providers Date of Admission: 06/02/23 Date of Discharge: 06/16/23 Primary Care Physician: Dr. 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 / Pulmonary Medicine Routine Consulting Provider: Pulmonary Medicine [facility] [place] Reason for Consult: hypoxic respiratory failure due to pneumonia EMERGENT Consult: No Notified: Yes Date Notified: 06/02/23 Time Notified: 11:03 Method of Notification: Text 06/08/23 09:07 Consult: Gastroenterology Routine Consulting Provider: [facility] Reason for Consult: GI Bleed EMERGENT Consult: No Notified: Yes Date Notified: 06/08/23 Time Notified: 09:47 Method of Notification: Text 06/08/23 09:38 Consult: Gastroenterology Routine Consulting Provider: [facility] Reason for Consult: GIB EMERGENT Consult: No Notified: Yes Date Notified: 06/08/23 Time Notified: 09:38 Method of Notification: Text Reason For Visit: ACUTE HYPOXIC RESPIRATORY FAILURE DUE TO COMMUNITY Diagnosis Discharge Diagnosis (1) Parapneumonic effusion: Status: Resolved Code(s): J18.9 - Pneumonia, unspecified organism; J91.8 - Pleural effusion in other conditions classified elsewhere (2) Acute exacerbation of chronic obstructive pulmonary disease (COPD): Status: Chronic Code(s): J44.1 - Chronic obstructive pulmonary disease with (acute) exacerbation Medications at Discharge Home Medications albuterol sulfate 90 mcg/actuation aerosol inhaler (Ventolin HFA) 2 puff inhalation Q4H PRN PRN Shortness Of Breath 08/28/15 montelukast 10 mg tablet 10 mg PO QHS ALLERGIES 02/25/18 fluticasone fur. 100 mcg-umeclid 62.5 mcg-vilant 25 mcg inhalat.powder (Trelegy Ellipta) 1 inh inhalation DAILY COPD 05/01/21 fluticasone propionate 50 mcg/actuation nasal spray,suspension 2 spray intranasal QHS ALLERGIES 05/01/21 buspirone 5 mg tablet 10 mg (2 x 5 mg) PO BID anxiety 30 days #120 tabs 06/16/23 metoprolol tartrate 25 mg tablet 25 mg PO BID HTN 30 days #60 tabs 06/16/23 pantoprazole 40 mg tablet,delayed release (Protonix) 40 mg PO BID GERD 30 days #60 tabs 06/16/23 prednisone 10 mg tablet 30 mg (3 x 10 mg) PO DAILY check with PCP 3 days #9 tabs 06/16/23 prednisone 20 mg tablet 20 mg PO DAILY 3 days #3 tabs 06/16/23 prednisone 20 mg tablet 40 mg (2 x 20 mg) PO DAILY Check with PCP 3 days #6 tabs 06/16/23 sucralfate 1 gram tablet 1 g PO 0700,1100,1600 GI 30 days #90 tabs 06/16/23 Hospital Course Operations None Procedures EGD, EKG, Thoracentesis, Transthoracic echo and - (CTA chest, chest x-ray x 6, modified barium swallow study) Summary of Care Provided Minutes Spent on Discharge: 40 Hospital Course: Patient is a 68-year-old female who presented to [facility] ED on 06/02/2023 with worsening shortness of breath. Prolonged hospital course as noted below. Patient was discharged home with home health care in stable condition on 06/16. 1. Acute on chronic combined respiratory failure secondary to COPD with exacerbation, improved Requires 3 L nasal cannula at baseline, follows with [facility] pulmonology. Suspected exacerbation secondary to right lower lobe pneumonia. Patient required ICU management for several days during admission. Completed 10-day course of IV antibiotics on 06/13. S/p thoracentesis on 06/13 with only 70 cc fluid removed as noted below, cultures and Gram stain negative. ? Pulmonology followed. Patient back on home 3 L and satting well prior to discharge. Discharged on steroid taper. Discharged home with home health care. 2. Sepsis secondary to right lower lobe community-acquired pneumonia with parapneumonic effusion, resolved Patient presented with sepsis suspected due to right lower lobe pneumonia with related organ dysfunction as evidenced by need for NIPPV support. Appropriate hemodynamic response after fluid resuscitation. Previous cultures from pleural fluid negative. Antigen testing and viral panels negative. ? S/p thoracentesis on 06/13 with only 70 cc fluid removed as noted above, studies negative. Completed antibiotics as noted above. 3. Acute blood loss anemia secondary to acute upper GI bleed, stable Had 2 g hemoglobin drop on 06/08, suspected due to GI bleed. S/p EGD that showed grade a erosive esophagitis, hiatal hernia and duodenal ulcer with visible vessel that was cauterized. Patient has had no recurrence of bleeding since then. However, patient's hemoglobin decreased from 8.3 to 6.4 on 06/15. Repeat hemoglobin 6.7 on confirmatory testing. Patient did have drop of all cell lines with these lab draws, suspect that is the primary etiology of the worsened anemia. No evidence of bleeding at this time. ? S/p 1 unit packed red blood cells given on 06/15 with appropriate response. Recommend repeat CBC in 5 to 7 days to confirm stability of hemoglobin. Continue p.o. PPI twice daily. 4. Episode of atrial fibrillation with RVR, resolved Patient had episode of A-fib with RVR on 06/03, resolved by 06/04 with IV beta-vincenzo therapy. Echo on 06/03 showed EF 65%, stage I diastolic dysfunction, no other abnormalities. Patient was placed on Eliquis for prophylaxis, but unfortunately had GI bleed as noted above. ? Given that this was an apparent transient episode of A-fib, held Eliquis going home. Continued Lopressor 25 mg twice daily. 5. Urinary retention, resolved ? Castelan catheter placed in the ICU due to concern for urinary retention at that time. Patient had no previous history of urinary retention. Castelan catheter removed on 06/15, completed void trial without issue. 6. Debility ? Secondary to prolonged hospitalization and degree of chronic debility at baseline. PT/OT/case management followed. Discharged home with home health care in stable condition. Chronic medical conditions: ? Anxiety: Continued home BuSpar. Total clinical time spent by myself addressing the patient's discharge needs: 40 minutes. Physical Exam Const alert, oriented x3 and no apparent distress Constitutional Narrative: Elderly female, chronically ill-appearing, sitting comfortably in bedside chair. No conversational dyspnea today. General Appearance: cooperative HEENT normocephalic, head/scalp atraumatic, hearing grossly normal bilaterally, nasal mucous membranes and turbinates normal and moist oral mucous membranes Eyes PERRL, EOMs intact bilaterally and conjunctivae normal Neck full ROM, no lymphadenopathy and supple Lymph Lymphatic: no lymphadenopathy noted Chest inspection of chest normal Resp Resp Narrative: Decreased breath sounds bilaterally, similar to previous. No wheezing noted. No increased work of breathing noted at rest. Cardio regular rate, regular rhythm, no murmurs and peripheral pulses 2+ throughout GI normal to inspection, nondistended, normoactive bowel sounds, soft to palpation, non-tender and non-distended Back/Spine normal ROM Extremity normal to inspection, full ROM and no pedal edema Skin no rashes or lesions noted Neuro moves all extremities and no focal motor deficits Speech: speech normal Psych affect normal Weight / BMI Weight Weight: 69 kg Body Mass Index (BMI) 26.1 ABG / Lab / Microbiology Data 06/16/23 07:25 06/16/23 07:25 Laboratory: Laboratory Results - last 24 hr 06/15/23 10:25: Blood Type O NEGATIVE, Antibody Screen NEGATIVE, Crossmatch See Detail 06/16/23 07:25: WBC 11.2 H, RBC 2.66 L, Hgb 7.6 L, Hct 24.3 L, MCV 91.4, MCH 28.6, MCHC 31.3 L, RDW Std Deviation 45.5 H, RDW Coeff of Laly 14.2, Plt Count 558 H, MPV 9.9, Sodium 140, Potassium 4.3, Chloride 103, Carbon Dioxide 35.0 H, Anion Gap 2 L, BUN 12, Creatinine 0.50 L, Estim Creat Clear Calc 47.14, Est GFR (MDRD) Af Amer 157, Est GFR (MDRD) Non-Af 130, BUN/Creatinine Ratio 23.8 H, Glucose 87, Calcium 8.2 L Microbiology: Microbiology 06/13/23 13:44 Fluid - Pleural (Lung) Gram Stain - Final 06/13/23 13:44 Fluid - Pleural (Lung) Body Fluid Culture - Final Culture exhibits no growth. 06/07/23 Unknown Fluid - Pleural (Lung) Gram Stain - Final 06/07/23 Unknown Fluid - Pleural (Lung) Body Fluid Culture - Final Culture exhibits no growth. 06/07/23 Unknown Fluid - Pleural (Lung) Anaerobic Culture - Final No growth in 5 days. 06/08/23 10:15 Stool Stool Occult Blood (ROSAURA) - Final Occult Blood Positive 06/02/23 10:47 Blood Culture (Wb) - Right Hand Blood Culture - Final No growth in 5 days. 06/02/23 09:26 Blood Culture (Wb) - Left Hand Blood Culture - Final No growth in 5 days. 06/02/23 10:34 Urine, Catheterized Urine Culture - Final Culture exhibits no growth. 06/03/23 09:15 Mucosa - Nose Coronavirus COVID-19 PCR - Final 06/02/23 10:34 Urine, Random Legionella Antigen - Final 06/02/23 10:34 Urine, Random Streptococcus pneumoniae Antigen (M - Final 06/02/23 11:22 Mucosa - Nasopharyngeal Respiratory Panel (PCR) - Final D/C Instructions Discharge Diet: No restrictions Weight Bearing Status: Full weight bearing Pending Tests Upon Discharge: None Please Follow Up With: Julio Draper MD When: As needed Meaningful Use Info Meaningful Use Diagnoses (Choose all that apply): None applicable Discharge Plan Admission Admit Date/Time: 06/02/23 11:01 Primary Reason for Your Visit: Shortness of breath Attending Provider: Robel Funk Primary Care Provider: Julio Draper Consulting Providers: Gabby Sutherland; Td Pillai Instructions Patient Instructions: JAYCE RN Thoracentesis Dc Additional Instructions / Restrictions: Please complete your steroid taper as follows: ? Prednisone 40 mg for 3 days, followed by 30 mg for 3 days, followed by 20 mg for 3 days, then off steroids. Take your new medications as listed below. Follow-up with your pulmonology doctor in the office soon. Follow-up with your primary care doctor as needed. Discharge Orders/Prescriptions Prescriptions: New buspirone 5 mg Tablet 10 mg PO BID 30 Days Qty: 120 0RF sucralfate 1 gram Tablet 1 g PO 0700,1100,1600 30 Days Qty: 90 0RF metoprolol tartrate 25 mg Tablet 25 mg PO BID 30 Days Qty: 60 0RF prednisone 20 mg tablet 40 mg PO DAILY 3 Days Qty: 6 0RF prednisone 10 mg tablet 30 mg PO DAILY 3 Days Qty: 9 0RF prednisone 20 mg tablet 20 mg PO DAILY 3 Days Qty: 3 0RF pantoprazole [Protonix] 40 mg tablet,delayed release (DR/EC) 40 mg PO BID 30 Days Qty: 60 0RF Continued albuterol sulfate [Ventolin HFA] 1 INHALER inhaler 2 puff inhalation Q4H PRN PRN (Reason: Shortness Of Breath) Patient Comments: shortness of breath montelukast 10 MG tablet 10 mg PO QHS fluticasone propionate 50 mcg/actuation spray,suspension 2 spray INTRANASAL QHS Patient Comments: Use 1 [place] in each nostril once daily. Trelegy Ellipta 100-62.5-25 mcg blister with device 1 inh INHALATION DAILY Patient Comments: Inhale 1 Puff as instructed once daily. Discontinued levofloxacin 750 mg tablet 750 mg PO DAILY Qty: 7 0RF prednisone 20 mg tablet 40 mg PO DAILY 7 Days Qty: 14 0RF oxycodone-acetaminophen [Percocet] 5-325 mg tablet 1 tab PO Q6H PRN (Reason: pain) 4 Days Qty: 14 0RF Referrals / Follow Up: Julio Draper MD [Primary Care Provider] - 06/23/23 2:00 pm Disposition Disposition (needs filled in before D/C Order can be placed): Home Health Service Charges/Coding Visit Charges Inpatient E&M: 76844 Disch Hosp >30min
--- NOTE | 2023-06-16 13:00 | CASEMGMT ---
JAMI GUERRERO updated by [facility] that they are able to accept patient and received one time contract. Start of care planned for Tuesday. Patient maintaining on home oxygen. JAMI GUERRERO in to updated patient regarding HHC setup with [facility]. Patient voiced appreciation and understanding. Patient had no further questions or concerns. JAMI GUERRERO updated patient's discharge plan.
== END 2023-06-16 14:45 | disposition short-term general hospital (02) | DRG 871 ==
LOC: ED 10:21 → ICU 11:30 → ED 06-10 17:14 → ICU 06-10 17:14 → PCU 06-10 18:25
PROVIDERS: Anesthesiology; Internal Medicine; Internal Medicine Critical Care Medicine; Internal Medicine Gastroenterology; Admitting Provider Student in an Organized Health Care Education/Training Program; Emergency Provider Emergency Medicine; PCP Internal Medicine; Visit Provider Hospitalist
PROC: 0DJ08ZZ Inspection of Upper Intestinal Tract, Via Natural or Artificial Opening Endoscopic (ICD-10-PCS; CPT 43235; principal; 2023-06-09 09:55)
DX: A41.9 Sepsis, unspecified organism (principal); J96.21 Acute and chronic respiratory failure with hypoxia; J69.0 Pneumonitis due to inhalation of food and vomit; K26.4 Chronic or unspecified duodenal ulcer with hemorrhage; J96.22 Acute and chronic respiratory failure with hypercapnia; J44.1 Chronic obstructive pulmonary disease with (acute) exacerbation; D62 Acute posthemorrhagic anemia; K22.10 Ulcer of esophagus without bleeding; J91.8 Pleural effusion in other conditions classified elsewhere; I48.91 Unspecified atrial fibrillation; I10 Essential (primary) hypertension; F41.9 Anxiety disorder, unspecified; E87.6 Hypokalemia; K44.9 Diaphragmatic hernia without obstruction or gangrene; K25.9 Gastric ulcer, unspecified as acute or chronic, without hemorrhage or perforation; R33.9 Retention of urine, unspecified; Z79.51 Long term (current) use of inhaled steroids; Z11.52 Encounter for screening for COVID-19; Z87.891 Personal history of nicotine dependence; Z99.81 Dependence on supplemental oxygen; Z88.1 Allergy status to other antibiotic agents
CPT/HCPCS: 32555; 36415; 36600; 71045; 71046; 74230; 80048; 80053; 80202; 81001; 82274; 82330; 82803; 82945; 83605; 83615; 83735; 84157; 85014; 85018; 85025; 85027; 85610; 85730; 86850; 86900; 86901; 86920; 86922; 87040; 87070; 87075; 87086; 87205; 87449; 87633; 87635; 87641; 88108; 88305; 88313; 89050; 92610; 92611; 93005; 93306; 94002; 94003; 94640; 94660; 94762; 97110; 97162; 97165; 97530; 97535; 99252; 99285; J2185; J7030; J7040; J7050; J7120; P9016; A4216; G0463; J0744; J1940; J2405; J3490

== ENCOUNTER 2023-06-20 10:06 | Inpatient (IN) | payer OTHER, MEDICARE, SELFPAY ==
[2023-06-20] VITALS (22 sets, daily range): BP systolic 87–121; BP diastolic 37–81; PULSE 63–80; RESP 11–20; TEMP 36.4–37.5; O2SAT 95–100; BMI 30.7; BMI 26.6
--- NOTE | 2023-06-20 10:16 | EKG12_ITS ---
Test Reason : ALT LOC Blood Pressure : / mmHG Vent. Rate : 066 BPM Atrial Rate : 066 BPM P-R Int : 190 ms QRS Dur : 082 ms QT Int : 402 ms P-R-T Axes : 064 065 049 degrees QTc Int : 421 ms Normal sinus rhythm Normal ECG Confirmed by ROB DORANTES, LUCRETIA ([id number]), news videotape editor RACHEL APARICIO ([id number]) on 06/21/2023 9:50:33 AM Referred By: Confirmed By:LUCRETIA RIVAS MD
--- NOTE | 2023-06-20 10:18 | EDS_ITS ---
HPI History of Present Illness Chief Complaint: Alt LOC Narrative Narrative: 68-year-old female, past medical history of COPD, was recently released from the hospital. She states that initially, she had coming to the hospital and has been here for quite some time. She was released on of last week, 5 days ago. She relates history that she developed atrial fibrillation, and then had GI bleeding that required cauterization. She is still having black stool. Her states that she had 2 syncopal episodes today. She has not been eating as well, and he was told that she needs to get up and walk around if she is to get better. He states he got her up and she took a few steps and passed out. Her syncopal episode was for approximately 30 seconds. He called 911. Reported on their arrival, she had another syncopal episode and tensed up for 5 to 10 seconds. There was no loss of bowel or bladder or postictal state. She presents because of generalized weakness and these reported 2 syncopal episodes. She denies any pain but states she might feel generally weak. [facility] Medical History Anxiety Asthma Benign essential hypertension Benign essential tremor COPD (chronic obstructive pulmonary disease) Former tobacco use Lung nodules Migraines On home oxygen therapy Pneumonia due to COVID-19 virus Home Medications albuterol sulfate 90 mcg/actuation aerosol inhaler (Ventolin HFA) 2 puff inhalation Q4H PRN PRN Shortness Of Breath 08/28/15 [History Last Taken 11/30/22 10:00] montelukast 10 mg tablet 10 mg PO QHS ALLERGIES 02/25/18 [History Last Taken 11/29/22] fluticasone fur. 100 mcg-umeclid 62.5 mcg-vilant 25 mcg inhalat.powder (Trelegy Ellipta) 1 inh inhalation DAILY COPD 05/01/21 [History Last Taken 11/30/22] fluticasone propionate 50 mcg/actuation nasal spray,suspension 2 spray intranasal QHS ALLERGIES 05/01/21 [History Last Taken 11/28/22] buspirone 5 mg tablet 10 mg (2 x 5 mg) PO BID 30 days #120 tabs 06/16/23 [Rx Last Taken Unknown] metoprolol tartrate 25 mg tablet 25 mg PO BID 30 days #60 tabs 06/16/23 [Rx Last Taken Unknown] pantoprazole 40 mg tablet,delayed release (Protonix) 40 mg PO BID 30 days #60 tabs 06/16/23 [Rx Last Taken Unknown] prednisone 10 mg tablet 30 mg (3 x 10 mg) PO DAILY 3 days #9 tabs 06/16/23 [Rx Last Taken Unknown] prednisone 20 mg tablet 20 mg PO DAILY 3 days #3 tabs 06/16/23 [Rx Last Taken Unknown] prednisone 20 mg tablet 40 mg (2 x 20 mg) PO DAILY 3 days #6 tabs 06/16/23 [Rx Last Taken Unknown] sucralfate 1 gram tablet 1 g PO 0700,1100,1600 30 days #90 tabs 06/16/23 [Rx Last Taken Unknown] Allergy/AdvReac Type Severity Reaction Status Date / Time cephalexin monohydrate Allergy Chest Verified 06/20/23 10:07 [From Keflex] tightness Surgical History H/O bilateral salpingectomy History of herniorrhaphy Hx of cholecystectomy Hx of tonsillectomy Social History adopted: Yes household members: family housing: house Smoking Status: Former smoker alcohol intake: never substance use type: does not use ROS ROS ED ROS Narrative Constitutional: No fever, no chills. Lysed weakness. HEENT: No sore throat. No neck pain. No loss of vision. No rhinorrhea. Cardiovascular: No chest pain. No palpitations. No pedal edema. 2 episodes of syncope. Respiratory: No cough, if, increasing shortness of breath. Abdominal: No abdominal pain. No nausea. No vomiting. Still having black stool. Genitourinary: No dysuria. No hematuria. Musculoskeletal: No myalgias. No arthralgias. Neurologic: No headaches. No dizziness. No lightheadedness. Skin: No rash. No change in color. Psychiatric: No depression. No anxiety. EXAM Physical Exam Narrative Exam Narrative: Afebrile. Vital signs noted. HEENT: Normocephalic. Atraumatic. PERRL, EOMI. Neck soft and supple. No point tenderness or step off. Cardiovascular: Regular rate and rhythm. No murmurs, rubs, or gallops appreciated. Respiratory: No tachypnea. Lungs clear to auscultation bilaterally. Gastrointestinal: Abdomen soft, nontender, with normoactive bowel sounds. No rebound or guarding. Neurological: Awake. Alert. Nonfocal, nonlateralizing. Skin: No rash. Normal color. Positive pallor. Musculoskeletal: No pedal edema. Full range of motion extremities. Const Vital Signs: 06/20/23 10:08 06/20/23 10:55 Temperature 98.4 F Temperature Source Oral Pulse Rate 72 65 Respiratory Rate 18 16 Blood Pressure 105/42 L 100/42 L Blood Pressure Mean 63 61 Pulse Ox 95 100 Oxygen Delivery Method Nasal Cannula Nasal Cannula Oxygen Flow Rate (L/min) 3 3 MDM MDM MDM Narrative Medical decision making narrative: I reviewed the EMS report, and she was hypotensive at 85 systolic. Her syncopal episodes may have been from volume depletion. Currently, her blood pressure is 105/42. She is very pallor. She may have generalized weakness and syncope secondary to anemia. She complains more of shortness of breath than anything else, she has had this for the last few days. Low suspicion for new onset seizure as there was no postictal state and there was no tonic-clonic activity. She may also be dehydrated given her transient hypotension. She will be bolused IV fluids. Her states that yesterday she complained of dysuria and burning with urination. I will obtain a lactic acid and urinalysis to help rule out sepsis, but currently she is not meeting any SIRS criteria as she is not tachycardic, and afebrile. I reviewed her prior records, and her gastroenterology report from 10 June, approximately 10 days ago. She did have a bleeding ulcer at that time which was cauterized and epinephrine injected. I reviewed her laboratory work from today and she has an elevated white count of 15.5 which I think is nonspecific, of significance is her hemoglobin which is low at 4.6. The prior was just above 7. Platelet count is elevated at 459. She is slightly hypokalemic with a potassium of 3.4, BUN of 31 with creatinine 0.58 consistent with upper GI bleeding. Lactic acid is slightly elevated at 2.2 which may also be from dehydration. She is not hypotensive currently. Given her profound anemia, she was typed and crossmatched for 4 units of packed red blood cells. Transfusion will be given in the emergency department. I discussed patient with Dr. Antunez who is familiar with the patient, and made him aware of the need for her admission. I will discuss patient with the hospitalist. Disposition is admit in guarded condition. History & Record Review Discussion w/independent historian: Patient and Family Additional record(s) reviewed:: Prior inpatient record, Prior ED visit and Prior labs Lab Data Attestation: I reviewed the patient's lab results. Labs: Laboratory Results - last 24 hr 06/20/23 10:25 WBC 15.5 H RBC 1.55 L Hgb 4.6 L* Hct 15.3 L MCV 98.7 D MCH 29.7 MCHC 30.1 L RDW Std Deviation 52.9 H RDW Coeff of Llay 15.5 H Plt Count 459 H MPV 10.0 Immature Gran % (Auto) 0.800 Neut % (Auto) 71.4 H Lymph % (Auto) 17.6 L [place] % (Auto) 7.9 Eos % (Auto) 1.8 Baso % (Auto) 0.5 Absolute Neuts (auto) 11.1 H Absolute Lymphs (auto) 2.72 Nucleated RBC % 0 Sodium 140 Potassium 3.4 L Chloride 103 Carbon Dioxide 32.0 Anion Gap 5 BUN 31 H Creatinine 0.58 Estim Creat Clear Calc 49.12 Est GFR (MDRD) Af Amer 132 Est GFR (MDRD) Non-Af 109 BUN/Creatinine Ratio 53.0 H Glucose 114 H Lactic Acid 2.2 H* Calcium 7.6 L Total Bilirubin 0.30 AST 13 L ALT 12 L Alkaline Phosphatase 54 Troponin I High Sens 8 Total Protein 5.0 L Albumin 2.0 L Globulin 3.0 Albumin/Globulin Ratio 0.7 L Radiography Diagnostic Testing: Clinical Impression(s) from Imaging Studies Chest X-Ray 06/20/23 10:46 IMPRESSION: Pleural parenchymal changes at the right lung base although the pleural effusion has improved as compared to prior study. Persistent bibasilar atelectasis and/or infiltrate persists. Electronically Signed: Michael Gaxiola MD at 11:07 EST , Management Discussion w/another healthcare provider: Hospitalist (Dr. Edis Mayo) and Metal Miner (Dr. 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
[2023-06-20] MEDS: 0.9% Normal Saline (1000mL) 1,000 ML 1000 ML IV (10:27)
[2023-06-20 10:46] LABS: Absolute Lymphocyte Count 2.72 X10^3/uL (0.83-4.51); Absolute Neutrophil Count 11.1 X10^3/uL (2.0-7.7); Basophil# 0.07 X10^3/uL; Basophil% 0.5 % (0-1); Eosinophil# 0.28 X10^3/uL; Eosinophils% 1.8 % (0-5); Hematocrit 15.3 % (37-47); Lymphocyte # 2.72 X10^3/ul (0.83-4.51); Lymphocyte % 17.6 % (19-41); Mean Corp Hgb Conc 30.1 g/dL (32-36); Mean Corpuscular Hgb 29.7 pg (27.0-32.0); Mean Corpuscular Volume 98.7 fL (81-99); Monocyte# 1.23 X10^3/uL; Monocyte% 7.9 % (0-10); NRBC Flagged by Analyzer 0 % (0-5); Neutrophil # 11.07 X10^3/uL (2.7-7.7); Neutrophil % 71.4 % (47-70); POSITIVE COUNT YES; Platelet Count 459 K/mm3 (150-450); RBC Distribution Width CV 15.5 % (11.6-14.6); RBC Distribution Width SD 52.9 fl (35.1-43.9); Red Blood Count 1.55 M/mm3 (4.2-5.4); White Blood Count 15.5 K/mm3 (4.4-11.0)
--- NOTE | 2023-06-20 10:46 | RAD_ITS ---
STUDY: X-RAY CHEST REASON FOR EXAM: Female, 68 years old. Altered level of consciousness. Coronary artery disease. TECHNIQUE: Single AP portable view of the chest. COMPARISON: Comparison is made with prior study dated June 13, 2023. FINDINGS: EKG electrodes are seen. Persistent pleural-parenchymal changes at the right lung base. Since prior study, the effusion has improved. Residual right basilar atelectasis seen. Stable linear density at the left lung base suggestive of scarring. Normal size heart. Normal mediastinum and katelyn. Normal visualized pulmonary arteries. There is atherosclerotic calcification of the aortic arch with tortuosity. There are diffuse degenerative changes of the visualized thoracic spine. Prior right shoulder replacement. There is no demonstrated abnormality of the visualized soft tissue structures of the upper abdomen. RAD/Chest 1 View (Portable) IMPRESSION: Pleural parenchymal changes at the right lung base although the pleural effusion has improved as compared to prior study. Persistent bibasilar atelectasis and/or infiltrate persists. Electronically Signed: Michael Gaxiola MD at 11:07 EST ,
[2023-06-20 10:50] LABS: Hemoglobin 4.6 g/dL (12.0-15.0)
[2023-06-20 11:06] LABS: ALB/GLOB Ratio 0.7 RATIO (0.9-2.4); AST(SGOT) 13 U/L (15-37); Alanine Aminotransfer ALT/SGPT 12 U/L (13-56); Alkaline Phosphatase 54 U/L (45-117); Anion Gap 5 (5-15); BUN 31 mg/dL (7-18); Calcium,Total 7.6 mg/dL (8.5-10.1); Chloride 103 mmol/L (98-107); Creatinine, Serum 0.58 mg/dL (0.55-1.02); EST Glomerular Filtration Rate 109 mL/min (>60); Est Glom Filt Rate - Afr Amer 132 mL/min (>60); Estimated Creatinine Clearance 49.12 ml/min; Glucose 114 mg/dL (74-106); Potassium 3.4 mmol/L (3.5-5.1); Sodium Level 140 mmol/L (136-145); Troponin-I HS 8 pg/mL (3.0-54.0)
[2023-06-20 11:16] LABS: Lactic Acid 2.2 mmol/L (0.4-1.9)
--- NOTE | 2023-06-20 11:23 | HP.PCM.HOS_ITS ---
HPI - General General Date of Admission: 06/20/23 Date of Service: 06/20/23 Chief Complaint: Passed out HPI Narrative SNEHA CARDENAS, is a 68 F who presents after having positive. Patient was recently on admission for acute on chronic respiratory failure secondary to COPD with acute exacerbation, sepsis secondary to right lower lobe pneumonia with parapneumonic effusion as well as acute blood loss anemia for which patient underwent EGD which demonstrated erosive esophagitis hiatal hernia and duodenal ulcer with visible vessel that was cauterized. Patient was discharged home on 06/16/2023. Patient reports feeling fatigue since being discharged. On the morning of her admission she apparently passed out. Prior to that patient had noticed some dark stools. Upon presentation to the emergency department, patient hemoglobin was found to be 4.6. Blood pressure was 103/38. Patient was typed and crossmatched and order given for patient to be transfused with 2 unit PRBC started on Protonix drip and subsequently admitted to the intensive care unit [facility] Medical History Anxiety Asthma Benign essential hypertension Benign essential tremor COPD (chronic obstructive pulmonary disease) Former tobacco use Lung nodules Migraines On home oxygen therapy Pneumonia due to COVID-19 virus Home Medications albuterol sulfate 90 mcg/actuation aerosol inhaler (Ventolin HFA) 2 puff inha lation Q4H PRN PRN Shortness Of Breath 08/28/15 [History Last Taken 11/30/22 10:00] montelukast 10 mg tablet 10 mg PO QHS ALLERGIES 02/25/18 [History Last Taken 11/29/22] fluticasone fur. 100 mcg-umeclid 62.5 mcg-vilant 25 mcg inhalat.powder (Trelegy Ellipta) 1 inh inhalation DAILY COPD 05/01/21 [History Last Taken 11/30/22] fluticasone propionate 50 mcg/actuation nasal spray,suspension 2 spray in tranasal QHS ALLERGIES 05/01/21 [History Last Taken 11/28/22] buspirone 5 mg tablet 10 mg (2 x 5 mg) PO BID anxiety 30 days #120 tabs 06/16/23 [Rx Last Taken Unknown] metoprolol tartrate 25 mg tablet 25 mg PO BID HTN 30 days #60 tabs 06/16/23 [Rx Last Taken Unknown] pantoprazole 40 mg tablet,delayed release (Protonix) 40 mg PO BID GERD 30 days #60 tabs 06/16/23 [Rx Last Taken Unknown] prednisone 10 mg tablet 30 mg (3 x 10 mg) PO DAILY check with PCP 3 days #9 tabs 06/16/23 [Rx Last Taken Unknown] prednisone 20 mg tablet 20 mg PO DAILY 3 days #3 tabs 06/16/23 [Rx Last Taken Unknown] prednisone 20 mg tablet 40 mg (2 x 20 mg) PO DAILY Check with PCP 3 days #6 tabs 06/16/23 [Rx Last Taken Unknown] sucralfate 1 gram tablet 1 g PO 0700,1100,1600 GI 30 days #90 tabs 06/16/23 [Rx Last Taken Unknown] Allergy/AdvReac Type Severity Reaction Status Date / Time cephalexin monohydrate Allergy Chest Verified 06/20/23 10:07 [From Keflex] tightness Surgical History H/O bilateral salpingectomy History of herniorrhaphy Hx of cholecystectomy Hx of tonsillectomy Social History adopted: Yes household members: family housing: house Smoking Status: Former smoker alcohol intake: never substance use type: does not use ROS ROS Narrative GENERAL: Fatigue HEENT: denies headache, sinus congestion, or drainage, dysphagia RESPIRATORY: d shortness of breath, dyspnea on exertion CARDIAC: denies chest pain, palpitations, orthopnea, PND GASTROINTESTINAL:, melena, GENITOURINARY: denies dysuria, urgency, frequency, heamaturia EXTREMITY: denies swelling MUSCULOSKELETAL: denies current joint pain or tenderness NEUROLOGIC: denies focal numbness, weakness, tingling HEMATOLOGIC: denies easy bruising and/or hemorrhage INTEGUMENT: denies rashes PSYCHIATRIC: denies suicidal or homicidal ideation Vital Signs Vital Signs Vital Signs: 06/20/23 10:08 06/20/23 10:55 Temperature 98.4 F Temperature Source Oral Pulse Rate 72 65 Respiratory Rate 18 16 Blood Pressure 105/42 L 100/42 L Blood Pressure Mean 63 61 Pulse Ox 95 100 Oxygen Delivery Method Nasal Cannula Nasal Cannula Oxygen Flow Rate (L/min) 3 3 Weight Weight: 83.7 kg Body Mass Index (BMI) 30.7 Physical Exam Narrative GENERAL: Pale looking HEENT: Atraumatic; normocephalic EYES; Anicteric, PERRL of the conjunctiva NECK; supple, normal thyroid, RESPIRATORY: Diminished to auscultation CARDIOVASCULAR: Regular S1 S2, GI: soft, normoactive bowel sounds, : No Renal angle tenderness; EXTREMITIES: No edema, no clubbing, MUSCULOSKELETAL: no muscle wasting NEURO: Awake; no lateralizing signs. SKIN: No Rash PSYCH; Flat affect Results Lab / Micro Data 06/20/23 10:25 06/20/23 10:25 Labs: Laboratory Results - last 24 hr 06/20/23 10:25: WBC 15.5 H, RBC 1.55 L, Hgb 4.6 L*, Hct 15.3 L, MCV 98.7 D, MCH 29.7, MCHC 30.1 L, RDW Std Deviation 52.9 H, RDW Coeff of Laly 15.5 H, Plt Count 459 H, MPV 10.0, Immature Gran % (Auto) 0.800, Neut % (Auto) 71.4 H, Lymph % (Auto) 17.6 L, [place] % (Auto) 7.9, Eos % (Auto) 1.8, Baso % (Auto) 0.5, Absolute Neuts (auto) 11.1 H, Absolute Lymphs (auto) 2.72, Nucleated RBC % 0, Sodium 140, Potassium 3.4 L, Chloride 103, Carbon Dioxide 32.0, Anion Gap 5, BUN 31 H, Creatinine 0.58, Estim Creat Clear Calc 49.12, Est GFR (MDRD) Af Amer 132, Est GFR (MDRD) Non-Af 109, BUN/Creatinine Ratio 53.0 H, Glucose 114 H, Lactic Acid 2.2 H*, Calcium 7.6 L, Total Bilirubin 0.30, AST 13 L, ALT 12 L, Alkaline Phosphatase 54, Troponin I High Sens 8, Total Protein 5.0 L, Albumin 2.0 L, Globulin 3.0, Albumin/Globulin Ratio 0.7 L Imagaing Radiology Impression Chest X-Ray 06/20/23 10:46 IMPRESSION: Pleural parenchymal changes at the right lung base although the pleural effusion has improved as compared to prior study. Persistent bibasilar atelectasis and/or infiltrate persists. Electronically Signed: Michael Gaxiola MD at 11:07 EST , Assessment & Plan Assessment/Plan (1) Anemia requiring transfusions: (2) Bleeding ulcer: PLAN: Plan Patient is a 68-year-old lady admitted with severe symptomatic anemia 1. Severe symptomatic anemia ? Secondary to acute on chronic blood loss anemia from upper GI bleed. EGD from 06/09/2023 demonstrated erosive esophagitis hiatal hernia and duodenal ulcer with visible vessel that was cauterized. Patient admitted to the intensive care unit after patient was started on crossmatch and an order given for patient to be transfused with 2 unit PRBC 2. Upper GI bleed ?EGD on 06/09/2023 demonstrated erosive esophagitis hiatal hernia and duodenal ulcer with visible vessel that was cauterized. Patient presented with melenic stools as well as significant anemia. Started on Protonix drip after patient did receive bolus. Consult placed to Dr. Antunez with GI. Patient kept n.p.o. for possible repeat endoscopic evaluation 3. Chronic hypoxic and hypercapnic respiratory failure secondary to COPD ? Patient is on 3 L of oxygen at home 4. COPD ? With recent exacerbation requiring hospitalization 5. Recent admission for sepsis secondary to right lower lobe pneumonia with parapneumonic effusion ? Patient underwent thoracocentesis cultures had remained negative to date at the time of discharge and still remains negative to date 6. Paroxysmal A-fib ? Patient had rapid ventricular response during her previous admission. Patient was placed on Eliquis which had to be discontinued due to GI bleed remains on beta-blockers 7. Anxiety disorder ? Patient is on BuSpar 8. DVT prophylaxis ? Bilateral SCDs for now Time spent in the patient's overall evaluation,decision-making process, review of diagnostic data, adjustment of management, discussion with other providers, nursing nursing and ancillary staff involved in patient's care documentation, 75 Minutes Advance planning; did discuss with the patient and regarding advanced directives as well as CODE STATUS. Did explain the various scenarios involved ( FULL CODE, DNR CCA, DNR CCA with no intubation, and DNR CC and what each meant) patient elected full code with CPR and intubation if needed. Order was placed. Time spent on discussion 18 minutes. Charges/Coding Visit Charges Inpatient E&M: 09381 Init Hosp L3 Procedures Hospitalists Procedures: 85955 Advncd Care Plan 30 Min
[2023-06-20] MEDS: Lactated Ringers 1,000 ML 100 ML IV (13:00)
[2023-06-20] MEDS: Pantoprazole Sodium 80 MG in 0.9% Normal Saline (50mL Bag) 15 ML 420 MG IV BOLUS (13:24)
[2023-06-20] MEDS: Pantoprazole Sodium 80 MG in 0.9% Normal Saline (100mL Bag) 80 ML 10 MG CONT INF ×2 (13:24→22:20)
[2023-06-20] MEDS: Ipratropium/Albuterol Sulfate 3 ML AMPUL.NEB INHALATION ×2 (13:33→20:25)
[2023-06-20 13:49] LABS: Pathologist Review Reviewed
[2023-06-20 14:36] LABS: Reflex Lactate? Y
--- NOTE | 2023-06-20 16:00 | EX.PCM.CON.G ---
HPI Consult Data Date of Consult: 06/20/23 HPI Narrative Reason for Consultation: GI bleed HPI Narrative: SNEHA CARDENAS, is a 68 F who presents with progressive weakness and fatigue. She was recently admitted to [facility] ED on 06/02/2023 with worsening shortness of breath. She had a prolonged hospital course as noted below. Patient was discharged home with home health care in stable condition on 06/16. At that time her hemoglobin was up to 7.6. Recheck of her hemoglobin today in the ED it was down to 4.6. She was recently discharged from the hospital after an acute on chronic combined respiratory failure secondary to COPD with exacerbation. She requires 3 L nasal cannula at baseline, follows with [facility] pulmonology. She was suspected exacerbation secondary to right lower lobe pneumonia. Patient required ICU management for several days during admission. She completed 10-day course of IV antibiotics on 06/13. S/p thoracentesis on 06/13 with only 70 cc fluid removed as noted below, cultures and Gram stain negative. She was discharged on steroid taper. She also had a diagnosis of sepsis secondary to right lower lobe community-acquired pneumonia with parapneumonic effusion. She presented with sepsis suspected due to right lower lobe pneumonia with related organ dysfunction as evidenced by need for NIPPV support. She underwent thoracentesis on 06/13 with only 70 cc fluid removed. I was consulted for melanotic stools. She was determined to have acute blood loss anemia secondary to acute upper GI bleed She had 2 g hemoglobin drop on 06/08, suspected due to GI bleed. She underwent EGD that showed grade a erosive esophagitis, hiatal hernia and duodenal ulcer with visible vessel that was cauterized. Patient has had no recurrence of bleeding since then. However, patient's hemoglobin decreased from 8.3 to 6.4 on 06/15. Repeat hemoglobin 6.7 on confirmatory testing. Patient did have drop of all cell lines with these lab draws, suspect that is the primary etiology of the worsened anemia. There was no evidence of recurrent bleeding at that time. She received 1 unit packed red blood cells given on 06/15 with appropriate response. [facility] Medical History Anxiety Asthma Benign essential hypertension Benign essential tremor COPD (chronic obstructive pulmonary disease) Former tobacco use Lung nodules Migraines On home oxygen therapy Pneumonia due to COVID-19 virus Home Medications albuterol sulfate 90 mcg/actuation aerosol inhaler (Ventolin HFA) 2 puff inhalation Q4H PRN PRN Shortness Of Breath 08/28/15 [History Last Taken 11/30/22 10:00] montelukast 10 mg tablet 10 mg PO QHS ALLERGIES 02/25/18 [History Last Taken 11/29/22] fluticasone fur. 100 mcg-umeclid 62.5 mcg-vilant 25 mcg inhalat.powder (Trelegy Ellipta) 1 inh inhalation DAILY COPD 05/01/21 [History Last Taken 11/30/22] fluticasone propionate 50 mcg/actuation nasal spray,suspension 2 spray intranasal QHS ALLERGIES 05/01/21 [History Last Taken 11/28/22] buspirone 5 mg tablet 10 mg (2 x 5 mg) PO BID anxiety 30 days #120 tabs 06/16/23 [Rx Last Taken Unknown] metoprolol tartrate 25 mg tablet 25 mg PO BID HTN 30 days #60 tabs 06/16/23 [Rx Last Taken Unknown] pantoprazole 40 mg tablet,delayed release (Protonix) 40 mg PO BID GERD 30 days #60 tabs 06/16/23 [Rx Last Taken Unknown] prednisone 10 mg tablet 30 mg (3 x 10 mg) PO DAILY check with PCP 3 days #9 tabs 06/16/23 [Rx Last Taken Unknown] prednisone 20 mg tablet 20 mg PO DAILY 3 days #3 tabs 06/16/23 [Rx Last Taken Unknown] prednisone 20 mg tablet 40 mg (2 x 20 mg) PO DAILY Check with PCP 3 days #6 tabs 06/16/23 [Rx Last Taken Unknown] sucralfate 1 gram tablet 1 g PO 0700,1100,1600 GI 30 days #90 tabs 06/16/23 [Rx Last Taken Unknown] Allergy/AdvReac Type Severity Reaction Status Date / Time cephalexin monohydrate Allergy Chest Verified 06/20/23 10:07 [From Keflex] tightness Surgical History H/O bilateral salpingectomy History of herniorrhaphy Hx of cholecystectomy Hx of tonsillectomy Social History adopted: Yes household members: family housing: house Smoking Status: Former smoker alcohol intake: never substance use type: does not use ROS ROS Narrative GENERAL: Fatigue HEENT: denies headache, sinus congestion, or drainage, dysphagia RESPIRATORY: d shortness of breath, dyspnea on exertion CARDIAC: denies chest pain, palpitations, orthopnea, PND GASTROINTESTINAL:, melena, GENITOURINARY: denies dysuria, urgency, frequency, heamaturia EXTREMITY: denies swelling MUSCULOSKELETAL: denies current joint pain or tenderness NEUROLOGIC: denies focal numbness, weakness, tingling HEMATOLOGIC: denies easy bruising and/or hemorrhage INTEGUMENT: denies rashes PSYCHIATRIC: denies suicidal or homicidal ideation Physical Exam Narrative GENERAL: Pale looking HEENT: Atraumatic; normocephalic EYES; Anicteric, PERRL of the conjunctiva NECK; supple, normal thyroid, RESPIRATORY: Diminished to auscultation CARDIOVASCULAR: Regular S1 S2, GI: soft, normoactive bowel sounds, : No Renal angle tenderness; EXTREMITIES: No edema, no clubbing, MUSCULOSKELETAL: no muscle wasting NEURO: Awake; no lateralizing signs. SKIN: No Rash PSYCH; Flat affect Lab / Micro Data 06/20/23 10:25 06/20/23 10:25 Labs: Laboratory Results - last 24 hr 06/20/23 10:25: WBC 15.5 H, RBC 1.55 L, Hgb 4.6 L*, Hct 15.3 L, MCV 98.7 D, MCH 29.7, MCHC 30.1 L, RDW Std Deviation 52.9 H, RDW Coeff of Laly 15.5 H, Plt Count 459 H, MPV 10.0, Immature Gran % (Auto) 0.800, Neut % (Auto) 71.4 H, Lymph % (Auto) 17.6 L, [place] % (Auto) 7.9, Eos % (Auto) 1.8, Baso % (Auto) 0.5, Absolute Neuts (auto) 11.1 H, Absolute Lymphs (auto) 2.72, Nucleated RBC % 0, Diff Path Review Reviewed, Sodium 140, Potassium 3.4 L, Chloride 103, Carbon Dioxide 32.0, Anion Gap 5, BUN 31 H, Creatinine 0.58, Estim Creat Clear Calc 49.12, Est GFR (MDRD) Af Amer 132, Est GFR (MDRD) Non-Af 109, BUN/Creatinine Ratio 53.0 H, Glucose 114 H, Lactic Acid 2.2 H*, Calcium 7.6 L, Total Bilirubin 0.30, AST 13 L, ALT 12 L, Alkaline Phosphatase 54, Troponin I High Sens 8, Total Protein 5.0 L, Albumin 2.0 L, Globulin 3.0, Albumin/Globulin Ratio 0.7 L 06/20/23 11:00: Blood Type O NEGATIVE, Antibody Screen NEGATIVE, Crossmatch See Detail Imagaing Radiology Impression Chest X-Ray 06/20/23 10:46 IMPRESSION: Pleural parenchymal changes at the right lung base although the pleural effusion has improved as compared to prior study. Persistent bibasilar atelectasis and/or infiltrate persists. Electronically Signed: Michael Gaxiola MD at 11:07 EST Reading Location ID and State: [facility] / [place] , Service support , Assessment & Plan Assessment/Plan (1) Bleeding ulcer: PLAN: Plan Patient is a 68-year-old female who presented to [facility] ED on 06/20/2023 with worsening shortness of breath and fatigue. She was discovered to have a hemoglobin of 4.6. This is likely in acute blood loss anemia secondary to acute upper GI bleed. She had 2 g hemoglobin drop on 06/08, suspected due to GI bleed. S/p EGD that showed grade a erosive esophagitis, hiatal hernia and duodenal ulcer with visible vessel that was cauterized. Patient has had no recurrence of bleeding since then. However, patient's hemoglobin decreased from 8.3 to 6.4 on 06/15. Repeat hemoglobin 6.7 on confirmatory testing. Patient did have drop of all cell lines with these lab draws, suspect that is the primary etiology of the worsened anemia. No evidence of bleeding at this time. ? I will start her on a PPI drip and octreotide drip. She will undergo an upper endoscopy tomorrow. She was explained alternatives, risk, benefits including outstanding bleeding, infection, sepsis, perforation, need for more surgery . Have an ASA of 3. Charges/Coding Visit Charges Inpatient E&M: 03752 Init Hosp L3
[2023-06-20] MEDS: Octreotide 0.5 MG in Dextrose 5%-Water (250mL Bag) 250 ML 12.5 MG CONT INF (17:00)
[2023-06-20 17:13] LABS: Bacteria 0 SEEN /hpf (None Seen); Mucous, Urine 0 SEEN /hpf (<or=2+); Red Blood Cells-Urine 0 SEEN /hpf (0-5)
[2023-06-20 17:31] LABS: Color, Urine Yellow (Yellow); Glucose, Dipstick Normal (Normal); Ketone-Dipstick Negative (Negative); Leukocyte Esterase-Dipstick 25 /ul (Negative); Nitrite-Dipstick Negative (Negative); Occult Blood-Urine Negative /ul (Negative); Protein-Dipstick Negative (Negative); Specific Gravity, Urine 1.015 (1.002-1.030); Urine Bilirubin Dipstick Negative (Negative); Urine Clarity Clear (Clear); Urine Urobilinogen Normal (Normal)
[2023-06-20 17:40] LABS: Squamous Epithelial Cells - UA 10-25 SEEN /hpf (5-10); White Blood Cells 0-5 SEEN /hpf (0-5); Yeast-Urine 1+ /hpf (None Seen)
[2023-06-20 17:47] LABS: Internal QC Validated? YES +Cl - CLEAR BKGD; Pregnancy, Urine Negative Negative
[2023-06-20 17:59] LABS: Lactic Acid 1.9 mmol/L (0.4-1.9)
[2023-06-20] MEDS: Budesonide Respules 0.5 MG/2 ML AMPUL.NEB. INHALATION (20:25)
[2023-06-20] MEDS: Fluticasone 0.05% 1 SPRAY NASAL.SRY 2 SPRAY NASAL (21:11)
[2023-06-20] MEDS: Montelukast 10 MG Tablet PO (21:11)
[2023-06-20] MEDS: 0.9% Saline Lock 10 ML Syringe IV (21:11)
[2023-06-21] VITALS (29 sets, daily range): BP systolic 104–152; BP diastolic 54–93; PULSE 65–87; RESP 16–25; TEMP 37.1–37.9; O2SAT 92–100; BMI 25.7; BMI 25.8
[2023-06-21 00:41] LABS: Hematocrit 30.4 % (37-47)
[2023-06-21] MEDS: 0.9% Saline Lock 10 ML Syringe IV ×2 (03:10→16:43)
[2023-06-21] MEDS: Lactated Ringers 1,000 ML 100 ML IV ×3 (03:10→21:16)
[2023-06-21 03:24] LABS: Absolute Lymphocyte Count 1.54 X10^3/uL (0.83-4.51); Absolute Neutrophil Count 7.2 X10^3/uL (2.0-7.7); Basophil# 0.06 X10^3/uL; Basophil% 0.6 % (0-1); Eosinophil# 0.44 X10^3/uL; Eosinophils% 4.4 % (0-5); Hematocrit 29.9 % (37-47); Hemoglobin 9.7 g/dL (12.0-15.0); Lymphocyte # 1.54 X10^3/ul (0.83-4.51); Lymphocyte % 15.4 % (19-41); Mean Corp Hgb Conc 32.4 g/dL (32-36); Mean Corpuscular Hgb 28.9 pg (27.0-32.0); Mean Platelet Vol. 9.5 fl (6.2-12.0); NRBC Flagged by Analyzer 0 % (0-5); Neutrophil # 7.19 X10^3/uL (2.7-7.7); Neutrophil % 72.1 % (47-70); Platelet Count 237 K/mm3 (150-450); RBC Distribution Width CV 16.5 % (11.6-14.6); RBC Distribution Width SD 52.4 fl (35.1-43.9); Red Blood Count 3.36 M/mm3 (4.2-5.4)
[2023-06-21 03:37] LABS: International Normalized Ratio 1.1; Partial Thromboplast Time 23.4 Seconds (24.1-36.2); Prothrombin Time (Protime)PT. 14.5 SECONDS (11.7-14.9)
[2023-06-21 03:43] LABS: Anion Gap 5 (5-15); BUN 19 mg/dL (7-18); BUN/Creat Ratio 30.4 RATIO (10-20); Calcium,Total 7.5 mg/dL (8.5-10.1); Chloride 103 mmol/L (98-107); Creatinine, Serum 0.62 mg/dL (0.55-1.02); EST Glomerular Filtration Rate 101 mL/min (>60); Est Glom Filt Rate - Afr Amer 123 mL/min (>60); Estimated Creatinine Clearance 47.14 ml/min; Glucose 140 mg/dL (74-106); Potassium 3.9 mmol/L (3.5-5.1); Sodium Level 143 mmol/L (136-145)
[2023-06-21] MEDS: Budesonide Respules 0.5 MG/2 ML AMPUL.NEB. INHALATION ×2 (07:02→18:42)
[2023-06-21] MEDS: Ipratropium/Albuterol Sulfate 3 ML AMPUL.NEB INHALATION ×2 (07:03→18:42)
--- NOTE | 2023-06-21 07:20 | PN.HOSP_ITS ---
Reason for Visit Reason for Visit: Diagnoses Anemia, unspecified (06/20/23) Chronic or unspecified gastrojejunal ulcer with hemorrhage (06/20/23) Subjective Subjective Patient was transfused 4 unit PRBC following admission hemoglobin up to 9.7. P atient scheduled to undergo EGD Objective Data Objective Data Vital Signs: Vital Signs Temp Pulse Resp BP Pulse Ox O2 Del Method O2 Flow Rate 99.1 F 80 17 142/63 H 92 Nasal Cannula 2 06/21/23 07:00 06/21/23 07:00 06/21/23 07:00 06/21/23 07:00 06/21/23 07:00 06/21/23 07:00 06/21/23 07:00 Oxygen Flow Rate (L/min) 2 Oxygen Delivery Method Nasal Cannula Weight: 68.3 kg Body Mass Index (BMI) 25.8 Intake & Output: Intake and Output for Last 24 Hours 06/19/23 06/20/23 06/21/23 23:59 23:59 23:59 Intake Total 1726.33 / 1726.33 400 / 400 Output Total 300 / 300 600 / 600 Balance 1426.33 / 1426.33 -200 / -200 Lab / Micro Data 06/21/23 03:15 06/21/23 03:15 Labs: Laboratory Results - last 24 hr 06/20/23 10:25: WBC 15.5 H, RBC 1.55 L, Hgb 4.6 L*, Hct 15.3 L, MCV 98.7 D, MCH 29.7, MCHC 30.1 L, RDW Std Deviation 52.9 H, RDW Coeff of Laly 15.5 H, Plt Count 459 H, MPV 10.0, Immature Gran % (Auto) 0.800, Neut % (Auto) 71.4 H, Lymph % (Auto) 17.6 L, [place] % (Auto) 7.9, Eos % (Auto) 1.8, Baso % (Auto) 0.5, Absolute Neuts (auto) 11.1 H, Absolute Lymphs (auto) 2.72, Nucleated RBC % 0, Diff Path Review Reviewed, Sodium 140, Potassium 3.4 L, Chloride 103, Carbon Dioxide 32.0, Anion Gap 5, BUN 31 H, Creatinine 0.58, Estim Creat Clear Calc 49.12, Est GFR (MDRD) Af Amer 132, Est GFR (MDRD) Non-Af 109, BUN/Creatinine Ratio 53.0 H, Glucose 114 H, Lactic Acid 2.2 H*, Calcium 7.6 L, Total Bilirubin 0.30, AST 13 L , ALT 12 L, Alkaline Phosphatase 54, Troponin I High Sens 8, Total Protein 5.0 L , Albumin 2.0 L, Globulin 3.0, Albumin/Globulin Ratio 0.7 L 06/20/23 11:00: Blood Type O NEGATIVE, Antibody Screen NEGATIVE, Crossmatch See Detail 06/20/23 12:30: Lactic Acid 1.9 06/20/23 17:00: Urine Color Yellow, Urine Clarity Clear, Urine pH 6.0, Ur Specific [place] 1.015, Urine Protein Negative, Urine Glucose (UA) Normal, Urine Ketones Negative, Urine Occult Blood Negative, Urine Nitrite Negative, Urine Bilirubin Negative, Urine Urobilinogen Normal, Ur Leukocyte Esterase 25 H, Urine RBC 0 SEEN, Urine WBC 0-5 SEEN, Ur Squamous Epith Cells 10-25 SEEN, Urine Bacteria 0 SEEN, Urine Mucus 0 SEEN, Urine Yeast 1+, Urine Test Negative 06/21/23 00:05: Hgb 10.0 L, Hct 30.4 L 06/21/23 03:15: WBC 10.0, RBC 3.36 L, Hgb 9.7 L, Hct 29.9 L, MCV 89.0 D, MCH 28.9, MCHC 32.4 D, RDW Std Deviation 52.4 H, RDW Coeff of Laly 16.5 H, Plt Count 237, MPV 9.5, Immature Gran % (Auto) 0.500, Neut % (Auto) 72.1 H, Lymph % (Auto) 15.4 L, [place] % (Auto) 7.0, Eos % (Auto) 4.4, Baso % (Auto) 0.6, Absolute Neuts (auto) 7.2, Absolute Lymphs (auto) 1.54, Nucleated RBC % 0, PT 14.5, INR 1.1, APTT 23.4 L, Sodium 143, Potassium 3.9, Chloride 103, Carbon Dioxide 35.0 H, Anion Gap 5, BUN 19 H, Creatinine 0.62, Estim Creat Clear Calc 47.14, Est GFR (MDRD) Af Amer 123, Est GFR (MDRD) Non-Af 101, BUN/Creatinine Ratio 30.4 H, Glucose 140 H, Calcium 7.5 L Radiography Diagnostic Testing: Radiology Impression Chest X-Ray 06/20/23 10:46 IMPRESSION: Pleural parenchymal changes at the right lung base although the pleural effusion has improved as compared to prior study. Persistent bibasilar atelectasis and/or infiltrate persists. Electronically Signed: Michael Gaxiola MD at 11:07 EST , Physical Exam Narrative GENERAL: Pale looking HEENT: Atraumatic; normocephalic EYES; Anicteric, PERRL of the conjunctiva NECK; supple, normal thyroid, RESPIRATORY: Diminished to auscultation CARDIOVASCULAR: Regular S1 S2, GI: soft, normoactive bowel sounds, : No Renal angle tenderness; EXTREMITIES: No edema, no clubbing, MUSCULOSKELETAL: no muscle wasting NEURO: Awake; no lateralizing signs. SKIN: No Rash PSYCH; Flat affect Assessment & Plan Assessment/Plan (1) Anemia requiring transfusions: (2) Bleeding ulcer: PLAN: Plan Patient is a 68-year-old lady admitted with severe symptomatic anemia 1. Severe symptomatic anemia ? Secondary to acute on chronic blood loss anemia from upper GI bleed. EGD from 06/09/2023 demonstrated erosive esophagitis hiatal hernia and duodenal ulcer with visible vessel that was cauterized. Patient admitted to the intensive care unit after patient was started on crossmatch and an order given for patient to be transfused with 2 unit PRBC ? 06/21/2023;Patient was transfused 4 unit PRBC following admission hemoglobin up to 9.7. Patient scheduled to undergo EGD 2. Upper GI bleed ?EGD on 06/09/2023 demonstrated erosive esophagitis hiatal hernia and duodenal ulcer with visible vessel that was cauterized. Patient presented with melenic stools as well as significant anemia. Started on Protonix drip after patient did receive bolus. Consult placed to Dr. Antunez with GI. Patient kept n.p.o. for possible repeat endoscopic evaluation -06/21/2023 EGD planned for today 3. Chronic hypoxic and hypercapnic respiratory failure secondary to COPD ? Patient is on 3 L of oxygen at home 4. COPD ? With recent exacerbation requiring hospitalization 5. Recent admission for sepsis secondary to right lower lobe pneumonia with parapneumonic effusion ? Patient underwent thoracocentesis cultures had remained negative to date at the time of discharge and still remains negative to date 6. Paroxysmal A-fib ? Patient had rapid ventricular response during her previous admission. Patient was placed on Eliquis which had to be discontinued due to GI bleed remains on beta-blockers 7. Anxiety disorder ? Patient is on BuSpar 8. DVT prophylaxis ? Bilateral SCDs for now Time spent in the patient's overall evaluation,decision-making process, review of diagnostic data, adjustment of management, discussion with other providers, nursing nursing and ancillary staff involved in patient's care documentation, 50 minutes Charges/Coding Visit Charges Inpatient E&M: 20447 [facility] L3
[2023-06-21] MEDS: Pantoprazole Sodium 80 MG in 0.9% Normal Saline (100mL Bag) 80 ML 10 MG CONT INF ×2 (08:02→18:23)
[2023-06-21] MEDS: Octreotide 0.5 MG in Dextrose 5%-Water (250mL Bag) 250 ML 12.5 MG CONT INF (12:23)
--- NOTE | 2023-06-21 13:45 | NURSING ---
patient transferred to endoscopy with endo RN at this time
--- NOTE | 2023-06-21 14:40 | CASEMGMT ---
JAMI GUERRERO Readmission Review: Index: 06/02 thru 06/16, Dx: COPD exac, sepsis 2/2 pneumonia, parapneumonic effusion, Afib, GI bleed Readmission: 06/20/23, Dx: GI bleed Pt admitted on the above noted dates with the noted diagnoses. Pt receiving corresponding tx including EGD with cauterization of bleeding gastric ulcer. JAMI GUERRERO assessment on index noted pt to reside in a single story home with her spouse and was independent with ADLs and IADLs. Pt wore O2 from [facility] at 2l/min per [place]. Pt was discharged with the support of her spouse and home health services including SN, PT, and OT and continuation of her home O2. Pt currently off the unit for a procedure. Will meet with pt face to face for further discharge planning discussion at a later time. Scar Swan RN AC
--- NOTE | 2023-06-21 15:00 | EGD_PTH ---
PATIENT: SNEHA CARDENAS LOC: MS3 U#:[id number] AGE/SX: 68/F ROOM: WA321 RE06/20/[address]: Dr. Yemi Celaya MD : 1955 BED: 1 DIS: 06/23/2023 SPEC #: [id number] RECD: 06/22/23 09:37 STATUS: RACHEL VASQUES #: [id number] CARLOS: 06/21/23 15:[address]: Ramon Antunez DEPT: SURGICAL PATHOLOGY RECD BY: Mere Diamond ENTERED: 06/22/23 09:38 SP TYPE: EGD BIOPSY OTHR DR: MD Dr. Td Solomon DO Dr. Victor Velasquez, MD Tissues: Duodenum, NOS Procedures: Surgery Specimen Level IV Comments: @ Ordering doctor for SUIV edited from to @ by ANN at 06/23/23 0749 @ Submitting doctor edited from to @ by RGOOD at 06/23/23 0749 HEADER OPERATION: EGD with biopsies, electro hemostasis, PRE-OP DIAGNOSIS: Bleeding ulcer TISSUE SUBMITTED: Duodenal ulcer biopsy MICROSCOPIC DIAGNOSIS Duodenal ulcer, biopsy: Gastric metaplasia. Ulceration with associated acute and chronic inflammation and fibrinopurulent material. AM:sinan 06/23/2023 MICROSCOPIC DESCRIPTION Slides are reviewed. GROSS DESCRIPTION Received in fixative is one container labeled with the patient's name and designated duodenal ulcer biopsy. The specimen consists of multiple irregular fragments of light ott soft tissue that in aggregate measure 1.5 x 0.3 x 0.1 cm. The specimen is totally submitted in one cassette. / SJ:sinan 06/22/2023 TC:2 CPT: 29802
--- NOTE | 2023-06-21 15:41 | CHAPLAIN ---
Type of Pastoral Visit _x__ Initial Visit ___ Follow-up Visit ___ On-call Visit ___ General Patient Visit ___ Spiritual Assessment ___ Family Conference ___ Bereavement ___ Rapid Response ___ Code Blue ___ Other (describe below) Pastoral Care Referral From _x__ Patient ___ Family ___ Nurse ___ Physician ___ Fleet Maintenance Foreman ___ Food Consultant ___ Other (describe below) Sacrament/Intervention _x__ Active listening ___ Anointing ___ Confucianism ___ Bereavement ___ Communion ___ Henna exploration ___ ___ Life review _x__ Prayer ___ Reconciliation ___ Sacrament of Sick _x__ Supportive presence ___ Wedding ___ Other (describe below) Pastoral Comments patient and spouse are in the room waiting for the pt to be taken for her procedure; this patient was just seen recently in prior admission and has returned; pt is calm and just asks that prayers be said for her and her healing; spouse is also offered support
[2023-06-21] MEDS: Epinephrine (1 mg/ml) 1 MG/ML VIAL (15:44)
[2023-06-21] MEDS: 0.9% Normal Saline (Pres. free 10 ML Vial (15:44)
--- NOTE | 2023-06-21 16:02 | OP.EGD_ITS ---
Patient Name: Cristiana Perdomo Procedure Date: 06/21/2023 3:18 PM Date of : 1955 Age: 68 Procedure: Upper GI endoscopy Indications: Iron deficiency anemia, Melena Providers: Ramon Antunez DO Medicines: Monitored Anesthesia Care Patient Profile: This is a 68 year old female. Refer to note in patient chart for documentation of history and physical. Patient has symptoms of acute global abdominal pain. Complications: No immediate complications. Procedure: Pre-Anesthesia Assessment: - Prior to the procedure, a History and Physical was performed, and patient medications and allergies were reviewed. The patient is competent. The risks and benefits of the procedure and the sedation options and risks were discussed with the patient. All questions were answered and informed consent was obtained. Patient identification and proposed procedure were verified by the physician in the pre-procedure area. Mental Status Examination: alert and oriented. Respiratory Examination: clear to auscultation. CV Examination: normal. Prophylactic Antibiotics: The patient does not require prophylactic antibiotics. Prior Anticoagulants: The patient has taken no anticoagulant or antiplatelet agents. After reviewing the risks and benefits, the patient was deemed in satisfactory condition to undergo the procedure. The anesthesia plan was to use monitored anesthesia care (MAC). Immediately prior to administration of medications, the patient was re-assessed for adequacy to receive sedatives. The heart rate, respiratory rate, oxygen saturations, blood pressure, adequacy of pulmonary ventilation, and response to care were monitored throughout the procedure. The physical status of the patient was re-assessed after the procedure. After obtaining informed consent, the endoscope was passed under direct vision. Throughout the procedure, the patient's blood pressure, pulse, and oxygen saturations were monitored continuously. The Endoscope was introduced through the mouth, and advanced to the second part of duodenum. The upper GI endoscopy was accomplished without difficulty. The patient tolerated the procedure well. Scope In: 3:33:23 PM Scope Out: 3:53:23 PM Total Procedure Duration Time 0 hours 20 minutes 0 seconds Findings: The Z-line was irregular and was found 38 cm from the incisors. A medium-sized hiatal hernia was present. The entire examined stomach was normal. Three oozing cratered duodenal ulcers with a visible vessel were found in the duodenal bulb. The largest lesion was 9 mm in largest dimension. Area was successfully injected with 5 mL of a 0.1 mg/mL solution of epinephrine for drug delivery. Coagulation for hemostasis using heater probe was successful. Estimated blood loss was minimal. One non-bleeding cratered duodenal ulcer with no stigmata of bleeding was found in the duodenal bulb. The lesion was 9 mm in largest dimension. Biopsies were taken with a cold forceps for histology. Verification of patient identification for the specimen was done. Estimated blood loss was minimal. One oozing linear duodenal ulcer with pigmented material was found in the duodenal bulb. The lesion was 4 mm in largest dimension. Coagulation for hemostasis using heater probe was successful. Estimated blood loss was minimal. Impression: - Z-line irregular, 38 cm from the incisors. - Medium-sized hiatal hernia. - Normal stomach. - Oozing duodenal ulcers with a visible vessel. Injected. Treated with a heater probe. - Non-bleeding duodenal ulcer with no stigmata of bleeding. Biopsied. - Oozing duodenal ulcer with pigmented material. Treated with a heater probe. Recommendation: - [facility]. - Clear liquid diet. - Continue present medications. - Await pathology results. - Repeat upper endoscopy for surveillance. Procedure Code(s): --- Professional --- 13025, 59, Esophagogastroduodenoscopy, flexible, transoral; with control of bleeding, any method 65099, Esophagogastroduodenoscopy, flexible, transoral; with biopsy, single or multiple 12411, 59,51, Esophagogastroduodenoscopy, flexible, transoral; with directed submucosal injection(s), any substance CPT copyright 2021 [employer]. All rights reserved. The codes documented in this report are preliminary and upon classified copy control clerk review may be revised to meet current compliance requirements. Ramon Antunez DO 06/21/2023 4:01:58 PM This report has been signed electronically. Number of Addenda: 0 Note Initiated On: 06/21/2023 3:18 PM
--- NOTE | 2023-06-21 16:02 | OP.CCLET_ITS ---
06/21/2023 Julio Draper [address] [place] [address] Re : Upper GI endoscopy procedure for Cristiana Perdomo Dear Dr. Draper This procedure was performed on Wednesday, June 21, 2023. My impressions and recommendations are as follows: Impressions : - Z-line irregular, 38 cm from the incisors. - Medium-sized hiatal hernia. - Normal stomach. - Oozing duodenal ulcers with a visible vessel. Injected. Treated with a heater probe. - Non-bleeding duodenal ulcer with no stigmata of bleeding. Biopsied. - Oozing duodenal ulcer with pigmented material. Treated with a heater probe. Recommendations : - [facility]. - Clear liquid diet. - Continue present medications. - Await pathology results. - Repeat upper endoscopy for surveillance. My findings are described in the full procedure note, which is enclosed. If I can be of further assistance, please feel free to contact me at . Sincerely, Ramon Antunez, 06/21/2023 4:01:58 PM This report has been signed electronically.
[2023-06-21] MEDS: Ondansetron 4 MG/2 ML Vial IV (16:43)
[2023-06-21] MEDS: Fluticasone 0.05% 1 SPRAY NASAL.SRY 2 SPRAY NASAL (21:17)
[2023-06-21] MEDS: Montelukast 10 MG Tablet PO (21:17)
[2023-06-22] VITALS (20 sets, daily range): BP systolic 119–147; BP diastolic 44–68; PULSE 61–92; RESP 15–22; TEMP 36.6–37.3; O2SAT 98–100; BMI 26.4
[2023-06-22] MEDS: 0.9% Saline Lock 10 ML Syringe IV (04:13)
[2023-06-22] MEDS: Pantoprazole Sodium 80 MG in 0.9% Normal Saline (100mL Bag) 80 ML 10 MG CONT INF ×3 (04:13→23:08)
[2023-06-22 04:22] LABS: Absolute Lymphocyte Count 0.66 X10^3/uL (0.83-4.51); Absolute Neutrophil Count 7.4 X10^3/uL (2.0-7.7); Hematocrit 29.2 % (37-47); Hemoglobin 9.3 g/dL (12.0-15.0); Lymphocyte # 0.66 X10^3/ul (0.83-4.51); Lymphocyte % 7.8 % (19-41); Mean Corp Hgb Conc 31.8 g/dL (32-36); Mean Corpuscular Hgb 28.8 pg (27.0-32.0); Mean Corpuscular Volume 90.4 fL (81-99); Mean Platelet Vol. 9.7 fl (6.2-12.0); Monocyte# 0.28 X10^3/uL; Monocyte% 3.3 % (0-10); NRBC Flagged by Analyzer 0 % (0-5); Neutrophil # 7.44 X10^3/uL (2.7-7.7); Neutrophil % 88.5 % (47-70); Platelet Count 223 K/mm3 (150-450); RBC Distribution Width CV 15.9 % (11.6-14.6); RBC Distribution Width SD 51.2 fl (35.1-43.9); Red Blood Count 3.23 M/mm3 (4.2-5.4); White Blood Count 8.4 K/mm3 (4.4-11.0)
[2023-06-22 04:42] LABS: Anion Gap 7 (5-15); BUN 12 mg/dL (7-18); Calcium,Total 7.6 mg/dL (8.5-10.1); Chloride 101 mmol/L (98-107); EST Glomerular Filtration Rate 106 mL/min (>60); Est Glom Filt Rate - Afr Amer 128 mL/min (>60); Estimated Creatinine Clearance 47.14 ml/min; Glucose 133 mg/dL (74-106); Potassium 4.2 mmol/L (3.5-5.1); Sodium Level 141 mmol/L (136-145)
[2023-06-22] MEDS: Budesonide Respules 0.5 MG/2 ML AMPUL.NEB. INHALATION ×2 (07:10→19:26)
[2023-06-22] MEDS: Ipratropium/Albuterol Sulfate 3 ML AMPUL.NEB INHALATION ×3 (07:10→19:25)
[2023-06-22] MEDS: Lactated Ringers 1,000 ML 100 ML IV (07:32)
--- NOTE | 2023-06-22 15:34 | PN.HOSP_ITS ---
Reason for Visit Reason for Visit: Diagnoses Anemia, unspecified (06/20/23) Chronic or unspecified gastrojejunal ulcer with hemorrhage (06/20/23) Subjective Subjective Patient was seen and examined today, her hemoglobin today was 9.3, she appears stable for transfer from the ICU at this time. Patient remains on 3 L via nasal cannula, she is on chronic oxygen at home. Objective Data Objective Data Vital Signs: Vital Signs Temp Pulse Resp BP Pulse Ox O2 Del Method O2 Flow Rate 98 F 82 19 H 137/61 H 100 Nasal Cannula 3 06/22/23 14:58 06/22/23 14:58 06/22/23 14:58 06/22/23 14:58 06/22/23 14:58 06/22/23 15:26 06/22/23 15:26 Oxygen Flow Rate (L/min) 3 Oxygen Delivery Method Nasal Cannula Weight: 70 kg Body Mass Index (BMI) 26.4 Intake & Output: Intake and Output for Last 24 Hours 06/20/23 06/21/23 06/22/23 23:59 23:59 23:59 Intake Total 1726.33 / 1726.33 2703.87 / 2703.87 1945.00 / 1945.00 Output Total 300 / 300 2400 / 2400 675 / 675 Balance 1426.33 / 1426.33 303.87 / 303.87 1270.00 / 1270.00 Lab / Micro Data 06/22/23 04:15 06/22/23 04:15 Labs: Laboratory Results - last 24 hr 06/22/23 04:15: WBC 8.4, RBC 3.23 L, Hgb 9.3 L, Hct 29.2 L, MCV 90.4, MCH 28.8, MCHC 31.8 L, RDW Std Deviation 51.2 H, RDW Coeff of Laly 15.9 H, Plt Count 223, MPV 9.7, Immature Gran % (Auto) 0.400, Neut % (Auto) 88.5 H, Lymph % (Auto) 7.8 L, [place] % (Auto) 3.3, Eos % (Auto) 0.0, Baso % (Auto) 0.0, Absolute Neuts (auto) 7.4, Absolute Lymphs (auto) 0.66 L, Nucleated RBC % 0, Sodium 141, Potassium 4.2, Chloride 101, Carbon Dioxide 33.0 H, Anion Gap 7, BUN 12, Creatinine 0.60, Estim Creat Clear Calc 47.14, Est GFR (MDRD) Af Amer 128, Est GFR (MDRD) Non-Af 106, BUN/Creatinine Ratio 20.0, Glucose 133 H, Calcium 7.6 L Micro: Microbiology 06/20/23 17:00 Urine Catheter - Catheter Urine Culture - Final Yeast, not Carmel albicans 06/20/23 10:25 Blood Culture (Wb) - Anticubital Left Blood Culture - Preliminary No growth in 48 hours. 06/20/23 10:20 Blood Culture (Wb) - Right Forearm Blood Culture - Preliminary No growth in 48 hours. Physical Exam Const alert, oriented x3 and no apparent distress General Appearance: cooperative, well kempt and well developed Orientation / Consciousness: awake, oriented to person, oriented to place and oriented to time HEENT normocephalic, head/scalp atraumatic and moist oral mucous membranes Eyes PERRL, EOMs intact bilaterally and conjunctivae normal Neck supple, no JVD, thyroid normal and no carotid bruits General: trachea midline Resp normal respiratory effort, no retractions, no use of accessory muscles and clear to auscultation bilaterally Auscultation: Negative for rales, rhonchi or wheezes Cardio regular rate, regular rhythm, S1 normal heart sound, S2 normal heart sound, no murmurs, no rub and no gallops GI normal to inspection, nondistended, normoactive bowel sounds, soft to palpation, non-tender and non-distended Extremity no clubbing, cyanosis or edema Skin no rashes or lesions noted General Skin Exam: no breakdown Neuro oriented x3, CN's II-XII intact bilaterally, no focal motor deficits and no sensory deficits noted Sensorium / Orientation: awake, alert, oriented to person, oriented to place and oriented to time Speech: speech normal Psych affect normal Assessment & Plan Assessment/Plan (1) Bleeding ulcer: PLAN: Plan 1 acute on chronic blood loss anemia from upper GI bleed from duodenal ulcers requiring blood transfusion-patient's hemoglobin will be rechecked tomorrow, patient will remain on her current medications, she will be transferred to [facility] #2 duodenal ulcers-both nonbleeding and oozing, this was treated with a heater probe and injections. Patient will remain on IV Protonix and transitioned to #3 chronic hypoxic respiratory failure-patient is on 3 L of oxygen at home, currently her oxygen requirement is the same here #4 chronic obstructive pulmonary disease-this appears to be stable at this time, patient will remain on her current medications #5 paroxysmal [id number] is currently not on any anticoagulation due to upper GI bleed Clinical time spent by myself addressing patient's medical issues, reviewing her data, and collaborating with patient's care team: 25 minutes Charges/Coding Visit Charges Inpatient E&M: 59314 Subs Hosp L1
--- NOTE | 2023-06-22 16:33 | EX.PCM.PN.GI ---
Subjective Subjective Patient underwent repeat EGD yesterday. She is actually doing very well. She would like to have her diet increased. Objective Data Objective Data Vital Signs: Vital Signs Temp Pulse Resp BP Pulse Ox O2 Del Method O2 Flow Rate 98 F 82 19 H 137/61 H 100 Nasal Cannula 3 06/22/23 14:58 06/22/23 14:58 06/22/23 14:58 06/22/23 14:58 06/22/23 14:58 06/22/23 15:26 06/22/23 15:26 Oxygen Flow Rate (L/min) 3 Oxygen Delivery Method Nasal Cannula Weight: 154 lb 5.177 oz Body Mass Index (BMI) 26.4 Intake & Output: Intake and Output for Last 24 Hours 06/20/23 06/21/23 06/22/23 23:59 23:59 23:59 Intake Total 1726.33 / 1726.33 2703.87 / 2703.87 1945.00 / 1945.00 Output Total 300 / 300 2400 / 2400 675 / 675 Balance 1426.33 / 1426.33 303.87 / 303.87 1270.00 / 1270.00 Lab / Micro Data 06/22/23 04:15 06/22/23 04:15 Labs: Laboratory Results - last 24 hr 06/22/23 04:15: WBC 8.4, RBC 3.23 L, Hgb 9.3 L, Hct 29.2 L, MCV 90.4, MCH 28.8, MCHC 31.8 L, RDW Std Deviation 51.2 H, RDW Coeff of Laly 15.9 H, Plt Count 223, MPV 9.7, Immature Gran % (Auto) 0.400, Neut % (Auto) 88.5 H, Lymph % (Auto) 7.8 L, [place] % (Auto) 3.3, Eos % (Auto) 0.0, Baso % (Auto) 0.0, Absolute Neuts (auto) 7.4, Absolute Lymphs (auto) 0.66 L, Nucleated RBC % 0, Sodium 141, Potassium 4.2, Chloride 101, Carbon Dioxide 33.0 H, Anion Gap 7, BUN 12, Creatinine 0.60, Estim Creat Clear Calc 47.14, Est GFR (MDRD) Af Amer 128, Est GFR (MDRD) Non-Af 106, BUN/Creatinine Ratio 20.0, Glucose 133 H, Calcium 7.6 L Micro: Microbiology 06/20/23 17:00 Urine Catheter - Catheter Urine Culture - Final Yeast, not [place] albicans 06/20/23 10:25 Blood Culture (Wb) - Anticubital Left Blood Culture - Preliminary No growth in 48 hours. 06/20/23 10:20 Blood Culture (Wb) - Right Forearm Blood Culture - Preliminary No growth in 48 hours. Physical Exam Const alert, oriented x3 and no apparent distress General Appearance: cooperative, well kempt and well developed Orientation / Consciousness: awake, oriented to person, oriented to place and oriented to time HEENT normocephalic, head/scalp atraumatic and moist oral mucous membranes Eyes PERRL, EOMs intact bilaterally and conjunctivae normal Neck supple, no JVD, thyroid normal and no carotid bruits General: trachea midline Resp normal respiratory effort, no retractions, no use of accessory muscles and clear to auscultation bilaterally Auscultation: Negative for rales, rhonchi or wheezes Cardio regular rate, regular rhythm, S1 normal heart sound, S2 normal heart sound, no murmurs, no rub and no gallops GI normal to inspection, nondistended, normoactive bowel sounds, soft to palpation, non-tender and non-distended Extremity no clubbing, cyanosis or edema Skin no rashes or lesions noted General Skin Exam: no breakdown Neuro oriented x3, CN's II-XII intact bilaterally, no focal motor deficits and no sensory deficits noted Sensorium / Orientation: awake, alert, oriented to person, oriented to place and oriented to time Speech: speech normal Psych affect normal Assessment & Plan Assessment/Plan (1) Bleeding ulcer: (2) Anemia requiring transfusions: PLAN: Plan Assessment The patient has a known history of COPD and chronic hypoxemic respiratory failure with a baseline 3 L/min oxygen requirement. She presented with progressive weakness, fatigue and worsening shortness of breath. She is status post thoracentesis on last admission with a history of upper GI bleed secondary to duodenal ulcer believed to be secondary to prednisone. She underwent repeat EGD yesterday and was discovered to have oozing at the site of the duodenal ulcer. Biopsies were taken that a duodenal ulcer in it was endoscopically treated. Her hemoglobin seems to be stable for now. I am okay with advancing her diet. PPI therapy twice a day for 12 weeks. Carafate therapy 3 times a day for 8 weeks. Continue to monitor hemoglobin. Charges/Coding Visit Charges Inpatient E&M: 84174 Subs Hosp L3
--- NOTE | 2023-06-22 18:30 | CASEMGMT ---
JAMI GUERRERO note: RN CM to room. Pt sitting up in chair in room. Dtr and son-in-law @ bedside and pt agreeable to them being present while discussing discharge plan. Pt states, since her last admission she has been taking her meds as prescribed. She did state it took them awhile to get her meds on day of discharge @ [facility] and is interested in getting them from [facility] @ discharge. This was changed in [facility]. Pt states she had an appt w/Dr Draper scheduled for tomorrow and this has been cx'd d/t her hospitalization. She would like to have [facility]ONA w/[facility] @ discharge and denies wanting list of other HHC options. [facility]ONA order placed and call placed to [facility] and left re: RAMONA referral. Discussed Palliative care and questions answered. Pt agreeable to a referral. Dr Pillai made aware and order received. [facility]. Pt states she wears O2 @ home @ 3l/m from [facility]. Per [facility], current orders are only 2 l/m. Pt states her family will be taking her home @ discharge and they can bring in portable O2 tank @ d/c for her to go home on. She denies needing any further DME @ home and denies further discharge needs. Margarito GOODMAN RNCM
[2023-06-22] MEDS: Montelukast 10 MG Tablet PO (20:50)
[2023-06-22] MEDS: Fluticasone 0.05% 1 SPRAY NASAL.SRY 2 SPRAY NASAL (23:07)
[2023-06-23 04:00] VITALS: BP 127/59; PULSE 73; RESP 18; TEMP 36.7; O2SAT 96
[2023-06-23 05:14] VITALS: BMI 26.5
[2023-06-23 07:54] LABS: Absolute Lymphocyte Count 1.25 X10^3/uL (0.83-4.51); Absolute Neutrophil Count 5.6 X10^3/uL (2.0-7.7); Basophil# 0.04 X10^3/uL; Basophil% 0.5 % (0-1); Eosinophil# 0.52 X10^3/uL; Eosinophils% 6.5 % (0-5); Hematocrit 32.1 % (37-47); Lymphocyte # 1.25 X10^3/ul (0.83-4.51); Lymphocyte % 15.7 % (19-41); Mean Corp Hgb Conc 31.2 g/dL (32-36); Mean Corpuscular Hgb 29.1 pg (27.0-32.0); Mean Corpuscular Volume 93.3 fL (81-99); Mean Platelet Vol. 9.7 fl (6.2-12.0); Monocyte# 0.56 X10^3/uL; NRBC Flagged by Analyzer 0 % (0-5); Neutrophil # 5.57 X10^3/uL (2.7-7.7); Platelet Count 226 K/mm3 (150-450); RBC Distribution Width CV 16.3 % (11.6-14.6); RBC Distribution Width SD 53.4 fl (35.1-43.9); Red Blood Count 3.44 M/mm3 (4.2-5.4)
[2023-06-23 08:15] LABS: Anion Gap 2 (5-15); BUN 7 mg/dL (7-18); BUN/Creat Ratio 12.4 RATIO (10-20); Calcium,Total 8.3 mg/dL (8.5-10.1); Chloride 102 mmol/L (98-107); Creatinine, Serum 0.56 mg/dL (0.55-1.02); EST Glomerular Filtration Rate 114 mL/min (>60); Est Glom Filt Rate - Afr Amer 138 mL/min (>60); Estimated Creatinine Clearance 47.14 ml/min; Glucose 74 mg/dL (74-106); Potassium 3.4 mmol/L (3.5-5.1); Sodium Level 139 mmol/L (136-145)
[2023-06-23 10:00] VITALS: BP 134/71; PULSE 74; RESP 15; TEMP 37.1; O2SAT 97
--- NOTE | 2023-06-23 10:10 | DCINST_ITS ---
Discharge Instructions Diet Discharge Diet: No restrictions Activity Discharge Activity: Return to Normal Activity Weight Bearing Status: Weight bearing as tolerated Dressing / Incision Call your doctor if you observe: Fever of 101 or Higher, Coldness, Increased Pain, Numbness or Tingling, Change in Color, Inability to urinate, Inability to have a bowel movement, Using more than 1 pad per hour, Shortness of breath, Dizziness, Fainting spells, Swelling in the ankles, Chest pain, Prolonged hiccupping, Increased palpitations (irregular heartbeat) and Calf discomfort Follow Up Care When: IN 2 WEEKS Test Results: Test results from this visit will be discussed in further detail at your follow- up appointment, if applicable. Discharge Plan Admission Admit Date/Time: 06/20/23 11:22 Primary Reason for Your Visit: Upper GI bleed Attending Provider: Yemi Celaya Primary Care Provider: Julio Draper Consulting Providers: Edis Mayo; Td Pillai Discharge Orders/Prescriptions Prescriptions: Continued albuterol sulfate [Ventolin HFA] 1 INHALER inhaler 2 puff inhalation Q4H PRN PRN (Reason: Shortness Of Breath) Patient Comments: shortness of breath montelukast 10 MG tablet 10 mg PO QHS fluticasone propionate 50 mcg/actuation spray,suspension 2 spray INTRANASAL QHS Patient Comments: Use 1 [place] in each nostril once daily. Trelegy Ellipta 100-62.5-25 mcg blister with device 1 inh INHALATION DAILY Patient Comments: Inhale 1 Puff as instructed once daily. buspirone 5 mg Tablet 10 mg PO BID 30 Days Qty: 120 0RF metoprolol tartrate 25 mg Tablet 25 mg PO BID 30 Days Qty: 60 0RF sucralfate 1 gram Tablet 1 g PO 0700,1100,1600 30 Days Qty: 90 1RF pantoprazole [Protonix] 40 mg tablet,delayed release (DR/EC) 40 mg PO BID 30 Days Qty: 60 3RF Rx Instructions: 40 mg twice daily for 3 months and then once daily. Discontinued prednisone 20 mg tablet 40 mg PO DAILY 3 Days Qty: 6 0RF prednisone 10 mg tablet 30 mg PO DAILY 3 Days Qty: 9 0RF prednisone 20 mg tablet 20 mg PO DAILY 3 Days Qty: 3 0RF Referrals / Follow Up: Ramon Antunez DO [Med Staff - Active Staff] - Within 1 Month Julio Draper MD [Primary Care Provider] - Disposition Disposition (needs filled in before D/C Order can be placed): Home, Self Care
[2023-06-23 12:20] VITALS: BP 125/60; PULSE 96; RESP 15; TEMP 37.3; O2SAT 95
--- NOTE | 2023-06-23 12:20 | PCM.DC.SUM ---
Providers Date of Admission: 06/20/23 Date of Discharge: 06/23/23 Primary Care Physician: Dr. Julio Draper MD Consultations 06/20/23 12:17 Consult: Gastroenterology Routine Consulting Provider: Francesco [facility] Reason for Consult: GI bleed EMERGENT Consult: Yes MD Notified: Yes Date Notified: 06/20/23 Time Notified: 11:30 Method of Notification: ED Physician Initiated Reason For Visit: ACUTE GI BLEED Diagnosis Discharge Diagnosis (1) Bleeding ulcer: Status: Acute Code(s): K28.4 - Chronic or unspecified gastrojejunal ulcer with hemorrhage (2) Anemia requiring transfusions: Status: Acute Code(s): D64.9 - Anemia, unspecified Plan 68-year-old female was admitted after she passed out on the morning of the admission. She was feeling fatigued after recent discharge for COPD with acute exacerbation and right lower lobe pneumonia. Patient had noticed some darker stool, the night before she was admitted. Her hemoglobin in the ED was found to be 4.6. BP 103/38. She was typed and crossmatched 2 units and transfused on the floor. 1. Acute on chronic blood loss anemia from upper GI bleed from duodenal ulcers requiring blood transfusion-: The patient was [facility] floor. She was transfused 2 units of PRBC. Prior EGD on 06/09/2023 demonstrated erosive esophagitis hiatal hernia and duodenal ulcer with visible vessel that was cauterized. #2 duodenal ulcers: Repeat EGD was done on 06/21/2023 which showed oozing at the site of the duodenal ulcer, treated with a heater probe and injections. Patient was treated with IV Protonix drip after bolus. H&H is 10/32%. Platelet count is 226,000. Discussed with the GI. Patient is discharged on pantoprazole 40 mg twice daily for 3 months and sucralfate 1 g 3 times daily for 2 months. #3 chronic hypoxic respiratory failure-patient is on 3 L of oxygen at home, currently her oxygen requirement is the same here #4 chronic obstructive pulmonary disease-this appears to be stable at this time, patient on her baseline home medications. #5 paroxysmal [id number] is currently not on any anticoagulation due to upper GI bleed Discharge medication reconciliation done. Discharge follow-up instructions completed. Discharge process discussed with the patient and all questions were answered to patient's satisfaction. Follow with PCP in 1 to 2 weeks. Follow-up in GI clinic in 1 month. Total time spent, exact 35 minutes on discharge meds reconciliation, examination, coordination of care with nurses and ancillary staff, review of imaging and blood test and discussion with the patient on follow-up instructions. Microbiology Past 72 Hours 06/20/23 17:00 Urine Catheter - Catheter Urine Culture - Final Yeast, not Carmel albicans 06/20/23 10:25 Blood Culture (Wb) - Anticubital Left Blood Culture - Preliminary No growth in 48 hours. 06/20/23 10:20 Blood Culture (Wb) - Right Forearm Blood Culture - Preliminary No growth in 48 hours. Laboratory Results 06/23/23 07:12: WBC 8.0, RBC 3.44 L, Hgb 10.0 L, Hct 32.1 L, MCV 93.3, MCH 29.1, MCHC 31.2 L, RDW Std Deviation 53.4 H, RDW Coeff of Laly 16.3 H, Plt Count 226, MPV 9.7, Immature Gran % (Auto) 0.300, Neut % (Auto) 70.0, Lymph % (Auto) 15.7 L, [place] % (Auto) 7.0, Eos % (Auto) 6.5 H, Baso % (Auto) 0.5, Absolute Neuts (auto) 5.6, Absolute Lymphs (auto) 1.25, Nucleated RBC % 0, Sodium 139, Potassium 3.4 L, Chloride 102, Carbon Dioxide 35.0 H, Anion Gap 2 L, BUN 7, Creatinine 0.56, Estim Creat Clear Calc 47.14, Est GFR (MDRD) Af Amer 138, Est GFR (MDRD) Non-Af 114, BUN/Creatinine Ratio 12.4, Glucose 74, Calcium 8.3 L Medications at Discharge Home Medications albuterol sulfate 90 mcg/actuation aerosol inhaler (Ventolin HFA) 2 puff inhalation Q4H PRN PRN Shortness Of Breath 08/28/15 montelukast 10 mg tablet 10 mg PO QHS ALLERGIES 02/25/18 fluticasone fur. 100 mcg-umeclid 62.5 mcg-vilant 25 mcg inhalat.powder (Trelegy Ellipta) 1 inh inhalation DAILY COPD 05/01/21 fluticasone propionate 50 mcg/actuation nasal spray,suspension 2 spray intranasal QHS ALLERGIES 05/01/21 buspirone 5 mg tablet 10 mg (2 x 5 mg) PO BID anxiety 30 days #120 tabs 06/16/23 metoprolol tartrate 25 mg tablet 25 mg PO BID HTN 30 days #60 tabs 06/16/23 pantoprazole 40 mg tablet,delayed release (Protonix) 40 mg PO BID GERD 30 days #60 tabs 06/23/23 sucralfate 1 gram tablet 1 g PO 0700,1100,1600 GI 30 days #90 tabs 06/23/23 Physical Exam Narrative Patient stool is clear with no bleeding. No dizzy or chest pain. No shortness of breath. Patient wants to go home. Physical exam: General: Alert, Oriented x3, Cooperative HEENT: Atraumatic, PERRLA, EOMI, Normocephalic Oral: No Gingival or Mucosal Lesions/ Ulcerations Neck: Supple, No JVD, Negative Carotid Bruits Lungs: Air entry diminished in bilateral lung bases. No crepitation/rhonchi Cardiovascular: Regular rate, Regular Rhythm, Normal S1, Normal S2, No murmurs Abdomen: Bowel Sounds Present, Soft, Non Tender, Non-Distended : No renal angle tenderness. No suprapubic tenderness. Extremities: No edema, Capillary Refill Less than 3 Seconds Skin: No rashes, No breakdown Musculoskeletal: No Tenderness to Palpation of Joints or Extremities Neurological: Cranial nerves II-XII grossly intact, DTR 2+/4. No acute focal neurological deficit. Psych/Mental Status: Normal Affect, Appropriate. Weight / BMI Weight Weight: 154 lb 8.705 oz Body Mass Index (BMI) 26.5 ABG / Lab / Microbiology Data 06/23/23 07:12 06/23/23 07:12 Laboratory: Laboratory Results - last 24 hr 06/23/23 07:12: WBC 8.0, RBC 3.44 L, Hgb 10.0 L, Hct 32.1 L, MCV 93.3, MCH 29.1, MCHC 31.2 L, RDW Std Deviation 53.4 H, RDW Coeff of Laly 16.3 H, Plt Count 226, MPV 9.7, Immature Gran % (Auto) 0.300, Neut % (Auto) 70.0, Lymph % (Auto) 15.7 L, [place] % (Auto) 7.0, Eos % (Auto) 6.5 H, Baso % (Auto) 0.5, Absolute Neuts (auto) 5.6, Absolute Lymphs (auto) 1.25, Nucleated RBC % 0, Sodium 139, Potassium 3.4 L, Chloride 102, Carbon Dioxide 35.0 H, Anion Gap 2 L, BUN 7, Creatinine 0.56, Estim Creat Clear Calc 47.14, Est GFR (MDRD) Af Amer 138, Est GFR (MDRD) Non-Af 114, BUN/Creatinine Ratio 12.4, Glucose 74, Calcium 8.3 L Microbiology: Microbiology 06/20/23 17:00 Urine Catheter - Catheter Urine Culture - Final Yeast, not [place] albicans 06/20/23 10:25 Blood Culture (Wb) - Anticubital Left Blood Culture - Preliminary No growth in 48 hours. 06/20/23 10:20 Blood Culture (Wb) - Right Forearm Blood Culture - Preliminary No growth in 48 hours. D/C Instructions Discharge Diet: No restrictions Weight Bearing Status: Weight bearing as tolerated Call your doctor if you observe: Fever of 101 or Higher, Coldness, Increased Pain, Numbness or Tingling, Change in Color, Inability to urinate, Inability to have a bowel movement, Using more than 1 pad per hour, Shortness of breath, Dizziness, Fainting spells, Swelling in the ankles, Chest pain, Prolonged hiccupping, Increased palpitations (irregular heartbeat) and Calf discomfort When: IN 2 WEEKS Meaningful Use Info Meaningful Use Diagnoses (Choose all that apply): None applicable Discharge Plan Admission Admit Date/Time: 06/20/23 11:22 Primary Reason for Your Visit: Upper GI bleed Attending Provider: Yemi Celaya Primary Care Provider: Julio Draper Consulting Providers: Edis Mayo; Td Pillai Discharge Orders/Prescriptions Prescriptions: Continued albuterol sulfate [Ventolin HFA] 1 INHALER inhaler 2 puff inhalation Q4H PRN PRN (Reason: Shortness Of Breath) Patient Comments: shortness of breath montelukast 10 MG tablet 10 mg PO QHS fluticasone propionate 50 mcg/actuation spray,suspension 2 spray INTRANASAL QHS Patient Comments: Use 1 [place] in each nostril once daily. Trelegy Ellipta 100-62.5-25 mcg blister with device 1 inh INHALATION DAILY Patient Comments: Inhale 1 Puff as instructed once daily. buspirone 5 mg Tablet 10 mg PO BID 30 Days Qty: 120 0RF metoprolol tartrate 25 mg Tablet 25 mg PO BID 30 Days Qty: 60 0RF sucralfate 1 gram Tablet 1 g PO 0700,1100,1600 30 Days Qty: 90 1RF pantoprazole [Protonix] 40 mg tablet,delayed release (DR/EC) 40 mg PO BID 30 Days Qty: 60 3RF Rx Instructions: 40 mg twice daily for 3 months and then once daily. Discontinued prednisone 20 mg tablet 40 mg PO DAILY 3 Days Qty: 6 0RF prednisone 10 mg tablet 30 mg PO DAILY 3 Days Qty: 9 0RF prednisone 20 mg tablet 20 mg PO DAILY 3 Days Qty: 3 0RF Referrals / Follow Up: Ramon Antunez DO [Med Staff - Active Staff] - Within 1 Month Julio Draper MD [Primary Care Provider] - Disposition Disposition (needs filled in before D/C Order can be placed): Home, Self Care Charges/Coding Visit Charges Inpatient E&M: 55911 Disch Hosp >30min
--- NOTE | 2023-06-23 14:03 | CASEMGMT ---
Referral sent to [facility] via fax for palliative care. Paz Myrick RN CM
--- NOTE | 2023-06-23 14:46 | CASEMGMT ---
Addendum entered by Mariana Slade 06/23/23 15:11: TC to [facility], spoke with pharmacist who states that they put the two new rx on hold because the pt should have them already. TC to pt to make aware. She denies further needs. Original Note: Updated [facility] that pt has been dc'd[facility]. Referral sent to [facility] by dc statistical assistant. They are checking to see if they can do a one time contract with pt insurance. TC to [facility] to verify pt oxygen as this was previously verified but pt was stating that was incorrect. Noted when on phone that pt has been dc'd. TC to pt, she is aware about Palliative Care and states that [facility] does not have any rx for her. RN CM to call [facility] to check on this.
--- NOTE | 2023-06-23 15:54 | EX.PCM.PN.GI ---
Subjective Subjective Patient feels that her breathing is close to her baseline. She is status post repeat EGD with treatment of duodenal ulcer. Awaiting pathology from duodenal ulcer. Objective Data Objective Data Vital Signs: Vital Signs Temp Pulse Resp BP Pulse Ox O2 Del Method O2 Flow Rate 99.1 F 96 15 125/60 H 95 Nasal Cannula 2 06/23/23 12:20 06/23/23 12:20 06/23/23 12:20 06/23/23 12:20 06/23/23 12:20 06/23/23 12:20 06/23/23 12:20 Oxygen Flow Rate (L/min) 2 Oxygen Delivery Method Nasal Cannula Weight: 154 lb 8.705 oz Body Mass Index (BMI) 26.5 Intake & Output: Intake and Output for Last 24 Hours 06/21/23 06/22/23 06/23/23 23:59 23:59 23:59 Intake Total 2703.87 / 2703.87 2032.17 / 2032.17 100 / 100 Output Total 2400 / 2400 675 / 675 Balance 303.87 / 303.87 1357.17 / 1357.17 100 / 100 Lab / Micro Data 06/23/23 07:12 06/23/23 07:12 Labs: Laboratory Results - last 24 hr 06/23/23 07:12: WBC 8.0, RBC 3.44 L, Hgb 10.0 L, Hct 32.1 L, MCV 93.3, MCH 29.1, MCHC 31.2 L, RDW Std Deviation 53.4 H, RDW Coeff of Laly 16.3 H, Plt Count 226, MPV 9.7, Immature Gran % (Auto) 0.300, Neut % (Auto) 70.0, Lymph % (Auto) 15.7 L, [place] % (Auto) 7.0, Eos % (Auto) 6.5 H, Baso % (Auto) 0.5, Absolute Neuts (auto) 5.6, Absolute Lymphs (auto) 1.25, Nucleated RBC % 0, Sodium 139, Potassium 3.4 L, Chloride 102, Carbon Dioxide 35.0 H, Anion Gap 2 L, BUN 7, Creatinine 0.56, Estim Creat Clear Calc 47.14, Est GFR (MDRD) Af Amer 138, Est GFR (MDRD) Non-Af 114, BUN/Creatinine Ratio 12.4, Glucose 74, Calcium 8.3 L Micro: Microbiology 06/20/23 17:00 Urine Catheter - Catheter Urine Culture - Final Yeast, not [place] albicans 06/20/23 10:25 Blood Culture (Wb) - Anticubital Left Blood Culture - Preliminary No growth in 48 hours. 06/20/23 10:20 Blood Culture (Wb) - Right Forearm Blood Culture - Preliminary No growth in 48 hours. Physical Exam Narrative Patient stool is clear with no bleeding. No dizzy or chest pain. No shortness of breath. Patient wants to go home. Physical exam: General: Alert, Oriented x3, Cooperative HEENT: Atraumatic, PERRLA, EOMI, Normocephalic Oral: No Gingival or Mucosal Lesions/ Ulcerations Neck: Supple, No JVD, Negative Carotid Bruits Lungs: Air entry diminished in bilateral lung bases. No crepitation/rhonchi Cardiovascular: Regular rate, Regular Rhythm, Normal S1, Normal S2, No murmurs Abdomen: Bowel Sounds Present, Soft, Non Tender, Non-Distended : No renal angle tenderness. No suprapubic tenderness. Extremities: No edema, Capillary Refill Less than 3 Seconds Skin: No rashes, No breakdown Musculoskeletal: No Tenderness to Palpation of Joints or Extremities Neurological: Cranial nerves II-XII grossly intact, DTR 2+/4. No acute focal neurological deficit. Psych/Mental Status: Normal Affect, Appropriate. Assessment & Plan Assessment/Plan (1) Bleeding ulcer: (2) Anemia requiring transfusions: PLAN: Plan Assessment The patient has a known history of COPD and chronic hypoxemic respiratory failure with a baseline 3 L/min oxygen requirement. She presented with progressive weakness, fatigue and worsening shortness of breath. She is status post thoracentesis on last admission with a history of upper GI bleed secondary to duodenal ulcer believed to be secondary to prednisone. She underwent repeat EGD yesterday and was discovered to have oozing at the site of the duodenal ulcer. Biopsies were taken that a duodenal ulcer in it was endoscopically treated. Her hemoglobin seems to be stable for now. I am okay with advancing her diet. PPI therapy twice a day for 12 weeks. Carafate therapy 3 times a day for 8 weeks. Continue to monitor hemoglobin. Charges/Coding Visit Charges Inpatient E&M: 08680 Subs Hosp L3
== END 2023-06-23 14:34 | disposition home or self-care (01) | DRG 378 ==
LOC: ED 11:11 → ICU 11:53 → MS3 06-22 14:39
PROVIDERS: Anesthesiology; Internal Medicine; Internal Medicine Gastroenterology; Admitting Provider Internal Medicine; Emergency Provider Emergency Medicine; PCP Internal Medicine; Visit Provider Internal Medicine
PROC: 0DJ08ZZ Inspection of Upper Intestinal Tract, Via Natural or Artificial Opening Endoscopic (ICD-10-PCS; CPT 43235; principal; 2023-06-21 14:55)
DX: K28.4 Chronic or unspecified gastrojejunal ulcer with hemorrhage (principal); J96.12 Chronic respiratory failure with hypercapnia; J96.11 Chronic respiratory failure with hypoxia; D62 Acute posthemorrhagic anemia; J44.9 Chronic obstructive pulmonary disease, unspecified; I48.0 Paroxysmal atrial fibrillation; I10 Essential (primary) hypertension; K44.9 Diaphragmatic hernia without obstruction or gangrene; K20.80 Other esophagitis without bleeding; Z86.16 Personal history of COVID-19; Z87.891 Personal history of nicotine dependence; Z79.51 Long term (current) use of inhaled steroids
CPT/HCPCS: 36415; 71045; 80048; 80053; 81001; 81025; 83605; 84484; 85014; 85018; 85025; 85610; 85730; 86644; 86850; 86900; 86901; 86920; 86922; 87040; 87086; 87088; 88305; 93005; 94640; 94762; 99252; 99285; J7030; J7120; P9016; A4216; G0463; J2405; J3490

== ENCOUNTER 2023-07-05 14:33 | Emergency (ER) | payer OTHER, SELFPAY ==
[2023-07-05 14:35] VITALS: BP 142/69; PULSE 84; RESP 18; TEMP 36.8; O2SAT 95
[2023-07-05 15:50] VITALS: BMI 23.8
[2023-07-05] MEDS: 0.9% Normal Saline (1000mL) 1,000 ML 999 ML IV (15:53)
[2023-07-05 16:03] LABS: Absolute Lymphocyte Count 1.29 X10^3/uL (0.83-4.51); Absolute Neutrophil Count 7.3 X10^3/uL (2.0-7.7); Basophil# 0.04 X10^3/uL; Basophil% 0.4 % (0-1); Eosinophil# 0.05 X10^3/uL; Eosinophils% 0.5 % (0-5); Hematocrit 34.7 % (37-47); Lymphocyte # 1.29 X10^3/ul (0.83-4.51); Lymphocyte % 13.4 % (19-41); Mean Corp Hgb Conc 31.7 g/dL (32-36); Mean Corpuscular Hgb 28.6 pg (27.0-32.0); Mean Corpuscular Volume 90.4 fL (81-99); Mean Platelet Vol. 9.3 fl (6.2-12.0); Monocyte# 0.89 X10^3/uL; Monocyte% 9.2 % (0-10); NRBC Flagged by Analyzer 0 % (0-5); Neutrophil # 7.29 X10^3/uL (2.7-7.7); Neutrophil % 75.8 % (47-70); Platelet Count 578 K/mm3 (150-450); RBC Distribution Width CV 14.5 % (11.6-14.6); RBC Distribution Width SD 47.7 fl (35.1-43.9); Red Blood Count 3.84 M/mm3 (4.2-5.4); White Blood Count 9.6 K/mm3 (4.4-11.0)
[2023-07-05 16:05] LABS: ALB/GLOB Ratio 0.5 RATIO (0.9-2.4); AST(SGOT) 12 U/L (15-37); Alanine Aminotransfer ALT/SGPT 10 U/L (13-56); Albumin, Serum 2.4 g/dL (3.2-5.0); Alkaline Phosphatase 117 U/L (45-117); Anion Gap 8 (5-15); BUN 6 mg/dL (7-18); BUN/Creat Ratio 11.9 RATIO (10-20); Calcium,Total 8.8 mg/dL (8.5-10.1); Chloride 97 mmol/L (98-107); EST Glomerular Filtration Rate 129 mL/min (>60); Est Glom Filt Rate - Afr Amer 156 mL/min (>60); Estimated Creatinine Clearance 47.14 ml/min; Globulin 4.9 g/dL (2.2-4.2); Glucose 106 mg/dL (74-106); Lipase 24 U/L (13-75); Potassium 2.9 mmol/L (3.5-5.1); Protein, Total 7.3 g/dL (6.4-8.2); Sodium Level 140 mmol/L (136-145)
[2023-07-05] MEDS: Pantoprazole Sodium 40 MG in 0.9% Normal Saline (100mL MB+) 100 ML 330 MG IV (16:16)
[2023-07-05 16:20] VITALS: BP 144/60; PULSE 83; RESP 25; O2SAT 98
[2023-07-05 16:45] LABS: International Normalized Ratio 1.1; Prothrombin Time (Protime)PT. 14.5 SECONDS (11.7-14.9)
--- NOTE | 2023-07-05 17:20 | EDS_ITS ---
HPI HPI - GI History of Present Illness Chief Complaint: Abd Pain Narrative Narrative: 68-year-old female presenting with abdominal pain. She states on the left upper quadrant and left lower quadrant. She has a history of gastric ulcer, GI bleed. She states has been able to eat although it causes her pain when she does eat. She is making urine and stool. She denies black or bloody stools. No fevers or chills. No chest pain or shortness of breath. PFSH PFSH Medical History Anxiety Asthma Benign essential hypertension Benign essential tremor COPD (chronic obstructive pulmonary disease) Former tobacco use Lung nodules Migraines On home oxygen therapy Pneumonia due to COVID-19 virus Home Medications albuterol sulfate 90 mcg/actuation aerosol inhaler (Ventolin HFA) 2 puff inhalation Q4H PRN PRN Shortness Of Breath 08/28/15 [History Last Taken 11/30/22 10:00] montelukast 10 mg tablet 10 mg PO QHS ALLERGIES 02/25/18 [History Last Taken 11/29/22] fluticasone fur. 100 mcg-umeclid 62.5 mcg-vilant 25 mcg inhalat.powder (Trelegy Ellipta) 1 inh inhalation DAILY COPD 05/01/21 [History Last Taken 11/30/22] fluticasone propionate 50 mcg/actuation nasal spray,suspension 2 spray intranasal QHS ALLERGIES 05/01/21 [History Last Taken 11/28/22] buspirone 5 mg tablet 10 mg (2 x 5 mg) PO BID anxiety 30 days #120 tabs 06/16/23 [Rx Last Taken Unknown] metoprolol tartrate 25 mg tablet 25 mg PO BID HTN 30 days #60 tabs 06/16/23 [Rx Last Taken Unknown] pantoprazole 40 mg tablet,delayed release (Protonix) 40 mg PO BID GERD 30 days #60 tabs 06/23/23 [Rx Last Taken Unknown] sucralfate 1 gram tablet 1 g PO 0700,1100,1600 GI 30 days #90 tabs 06/23/23 [Rx Last Taken Unknown] Allergy/AdvReac Type Severity Reaction Status Date / Time cephalexin monohydrate Allergy Chest Verified 07/05/23 14:35 [From Keflex] tightness Surgical History H/O bilateral salpingectomy History of herniorrhaphy Hx of cholecystectomy Hx of tonsillectomy Social History adopted: Yes household members: family housing: house Smoking Status: Former smoker alcohol intake: never substance use type: does not use ROS ROS ED Constitutional Constitutional ED: Denies chills, fever(s) or sweats Eyes Eyes: Denies blurry vision or change in vision ENT ENT ED: Denies ear pain or sore throat Cardiovascular Cardiovascular: Denies chest pain, palpitations or racing heartbeat Respiratory/Chest Respiratory/Chest: Denies cough, dyspnea or sputum Gastrointestinal Gastrointestinal: Reports abdominal pain; Denies constipation, diarrhea, nausea or vomiting Genitourinary Genitourinary ED: Denies dysuria, hematuria or urinary frequency Musculoskeletal Musculoskeletal: Denies arthralgias, myalgias or neck pain Integumentary Denies abscess, Abrasions or rash Neurologic Neurologic: Denies headache(s), paresthesias or weakness Psychiatric Psychiatric: Denies anxiety, depression, suicidal ideation or suicidal thoughts Endocrine Endocrinology: Denies polydipsia or polyuria EXAM Physical Exam Const Vital Signs: 07/05/23 14:35 07/05/23 16:20 07/05/23 17:43 Temperature 98.2 F Temperature Source Temporal Pulse Rate 84 83 Respiratory Rate 18 25 H Blood Pressure 142/69 H 144/60 H Blood Pressure Mean 93 88 Pulse Ox 95 98 96 Oxygen Delivery Method Room Air Nasal Cannula Venturi Mask Oxygen Flow Rate (L/min) 3 Positive well nourished General Appearance ED: NAD HEENT Reports moist mucous membranes normocephalic and atraumatic Eyes PERRL General Eye ED: Negative for pale conjunctiva Neck no lymphadenopathy Resp normal respiratory effort Auscultation: Negative for rales, rhonchi or wheezes Cardio regular rate and regular rhythm Neuro CN's II-XII intact bilaterally and moves all extremities Sensorium / Orientation: alert Motor Exam: strength 5/5 throughout Psych mental status grossly normal and thought process normal MDM MDM MDM Narrative Medical decision making narrative: Patient with history of upper GI bleed presenting with lower left abdominal pain. Differential includes GI bleed, anemia, dehydration, electrode normalities, diverticulitis, colitis, UTI, pyelonephritis, pancreatitis. Patient medicated with morphine, Zofran, Protonix. She was given a liter of normal saline. White blood cell count is 9.6. Hemoglobin 11.0. This is actually increasing. PT/INR normal. LFTs unremarkable. Renal function electrolytes normal exception of a potassium of 2.9. Lipase within normal limits. Urinalysis was negative. CT of the abdomen pelvis with IV contrast was obtained and shows no acute process. Patient potassium was repleted orally. Lab work and imaging were discussed. All questions were answered. She stable for discharge at this time. She is to continue all meds as previously prescribed. Impression: 1. Abdominal pain Lab Data Labs: Laboratory Results - last 24 hr 07/05/23 07/05/23 07/05/23 15:30 15:45 17:35 WBC 9.6 RBC 3.84 L Hgb 11.0 L Hct 34.7 L MCV 90.4 MCH 28.6 MCHC 31.7 L RDW Std Deviation 47.7 H RDW Coeff of Laly 14.5 Plt Count 578 H MPV 9.3 Immature Gran % (Auto) 0.700 Neut % (Auto) 75.8 H Lymph % (Auto) 13.[address] [place] % (Auto) 9.2 Eos % (Auto) 0.5 Baso % (Auto) 0.4 Absolute Neuts (auto) 7.3 Absolute Lymphs (auto) 1.29 Nucleated RBC % 0 PT 14.5 INR 1.1 Sodium 140 Potassium 2.9 L Chloride 97 L Carbon Dioxide 35.0 H Anion Gap 8 BUN 6 L Creatinine 0.50 L Estim Creat Clear Calc 47.14 Est GFR (MDRD) Af Amer 156 Est GFR (MDRD) Non-Af 129 BUN/Creatinine Ratio 11.9 Glucose 106 Calcium 8.8 Total Bilirubin 0.40 AST 12 L ALT 10 L Alkaline Phosphatase 117 Total Protein 7.3 Albumin 2.4 L Globulin 4.9 H Albumin/Globulin Ratio 0.5 L Lipase 24 Urine Color Yellow Urine Clarity Clear Urine pH 6.0 Ur Specific [place] 1.010 Urine Protein 30 H Urine Glucose (UA) Normal Urine Ketones 15 H Urine Occult Blood 150 H Urine Nitrite Negative Urine Bilirubin Negative Urine Urobilinogen Normal Ur Leukocyte Esterase Negative Urine RBC 0-5 SEEN Urine WBC 0-5 SEEN Ur Squamous Epith Cells 0-5 SEEN Urine Bacteria 0 SEEN Urine Mucus 1+ Blood Type O NEGATIVE Antibody Screen NEGATIVE Radiography Diagnostic Testing: Clinical Impression(s) from Imaging Studies Abdomen/Pelvis CT 07/05/23 17:30 IMPRESSION: No definite acute or significant abnormality seen in the abdomen or pelvis. Electronically Signed: Jaguar Martines MD at 19:11 EST , Discharge Plan Triage Chief Complaint: Abd Pain ED Provider: Jaime Perdomo Dx/Rx/DC Orders Instructions: ED Abdominal Pain Unkn Cause Fem Prescriptions: No Action albuterol sulfate [Ventolin HFA] 1 INHALER inhaler 2 puff inhalation Q4H PRN PRN (Reason: Shortness Of Breath) Patient Comments: shortness of breath montelukast 10 MG tablet 10 mg PO QHS fluticasone propionate 50 mcg/actuation spray,suspension 2 spray INTRANASAL QHS Patient Comments: Use 1 [place] in each nostril once daily. Trelegy Ellipta 100-62.5-25 mcg blister with device 1 inh INHALATION DAILY Patient Comments: Inhale 1 Puff as instructed once daily. buspirone 5 mg Tablet 10 mg PO BID 30 Days Qty: 120 0RF metoprolol tartrate 25 mg Tablet 25 mg PO BID 30 Days Qty: 60 0RF sucralfate 1 gram Tablet 1 g PO 0700,1100,1600 30 Days Qty: 90 1RF pantoprazole [Protonix] 40 mg tablet,delayed release (DR/EC) 40 mg PO BID 30 Days Qty: 60 3RF Rx Instructions: 40 mg twice daily for 3 months and then once daily. Primary Care Provider: Julio Draper Referrals: Julio Draper MD [Primary Care Provider] - Disposition Disposition: Home, Self Care
[2023-07-05] MEDS: Ondansetron 4 MG/2 ML Vial IV (17:22)
[2023-07-05] MEDS: Morphine 4 MG/ML Syringe IV (17:23)
--- NOTE | 2023-07-05 17:30 | CT_ITS ---
EXAM: CT ABDOMEN AND PELVIS WITH INTRAVENOUS CONTRAST CLINICAL INDICATION: llq abdominal pain TECHNIQUE: Helically acquired images were obtained of the abdomen and pelvis with intravenous contrast. This CT exam was performed using one or more of the following dose reduction techniques: automated exposure control, adjustment of the mA and/or kV according to patient size, and/or use of iterative reconstruction technique. CONTRAST: IV 100mL Isovue-370 RADIATION DOSE: CTDIvol = 11.93 mGy, DLP = 696.55 mGy-cm COMPARISON: No relevant prior studies available. FINDINGS: LOWER THORAX: Small right pleural effusion. Prominent compressive atelectasis of the right lower lobe. No cardiomegaly. ABDOMEN: LIVER: Unremarkable. Homogeneous. No focal mass. GALLBLADDER AND BILE DUCTS: Nonvisualized gallbladder. No intra- or extrahepatic biliary ductal dilation. PANCREAS: Unremarkable. No focal cystic or solid mass. SPLEEN: Unremarkable. Normal size without focal cystic or solid mass. ADRENALS: Unremarkable. No nodules. KIDNEYS AND URETERS: Unremarkable. Normal renal size and position. No hydronephrosis. STOMACH AND BOWEL: Evaluation of the GI tract is limited by absence of oral contrast. Cannot exclude stomach wall thickening. No dilated loops of bowel or evidence for obstruction. Cannot exclude segmental thickening of the sands of the small or large bowel. Cannot exclude enteritis or colitis. Appendix is not seen. PELVIS: APPENDIX: No evidence of acute appendicitis. BLADDER: Unremarkable. REPRODUCTIVE: Atrophic uterus. ABDOMEN and PELVIS: INTRAPERITONEAL SPACE: Unremarkable. No ascites or other fluid collection. No free air. BONES/JOINTS: Degenerative changes of the spine. Mild dextroconvex scoliosis. No suspicious lytic or blastic abnormality. SOFT TISSUES: Unremarkable. No discrete abdominal or pelvic wall hernia. VASCULATURE: Prominent calcified plaque of the aorta. No aneurysm. LYMPH NODES: Unremarkable. No enlarged lymph nodes. CT/Abdomen/Pelvis W IV Cont ONLY IMPRESSION: No definite acute or significant abnormality seen in the abdomen or pelvis. Electronically Signed: Jaguar Martines MD at 19:11 EST ,
[2023-07-05 17:43] VITALS: O2SAT 96
[2023-07-05 17:52] LABS: Bacteria 0 SEEN /hpf (None Seen)
[2023-07-05 18:05] LABS: Color, Urine Yellow (Yellow); Glucose, Dipstick Normal (Normal); Ketone-Dipstick 15 mg/dl (Negative); Leukocyte Esterase-Dipstick Negative /ul (Negative); Nitrite-Dipstick Negative (Negative); Occult Blood-Urine 150 /ul (Negative); Protein-Dipstick 30 mg/dl (Negative); Urine Bilirubin Dipstick Negative (Negative); Urine Clarity Clear (Clear); Urine Urobilinogen Normal (Normal)
[2023-07-05 18:11] LABS: Mucous, Urine 1+ /hpf (<or=2+); Red Blood Cells-Urine 0-5 SEEN /hpf (0-5); Squamous Epithelial Cells - UA 0-5 SEEN /hpf (5-10); White Blood Cells 0-5 SEEN /hpf (0-5)
[2023-07-05] MEDS: Potassium Chloride Oral Soln 20 MEQ/15 ML UDC 40 MEQ PO (20:43)
[2023-07-05 20:51] VITALS: BP 156/65; O2SAT 98
== END 2023-07-05 20:52 | disposition home or self-care (01) ==
PROVIDERS: Emergency Provider Student in an Organized Health Care Education/Training Program; PCP Internal Medicine; Visit Provider Student in an Organized Health Care Education/Training Program
DX: R10.12 Left upper quadrant pain (principal); J44.9 Chronic obstructive pulmonary disease, unspecified; Z87.891 Personal history of nicotine dependence; R10.32 Left lower quadrant pain; I10 Essential (primary) hypertension; Z99.81 Dependence on supplemental oxygen; Z79.51 Long term (current) use of inhaled steroids; F41.9 Anxiety disorder, unspecified; Z90.49 Acquired absence of other specified parts of digestive tract
CPT/HCPCS: 74177; 80053; 81001; 83690; 85025; 85610; 86850; 86900; 86901; 96365; 96375; 99283; J7030; Q9967; A4216; J2405

== ENCOUNTER 2023-07-07 08:51 | Inpatient (IN) | payer OTHER, MEDICARE, SELFPAY ==
[2023-07-07] VITALS (14 sets, daily range): BP systolic 123–156; BP diastolic 61–96; PULSE 74–108; RESP 15–22; TEMP 35.9–37.5; O2SAT 92–99; BMI 21.1; BMI 23.8
--- NOTE | 2023-07-07 | FLU_PTH ---
PATHOLOGY RESULTS PATIENT: SNEHA CARDENAS LOC: [facility] U#:[id number] AGE/SX: 68/F ROOM: [facility] RE07/07/[address]: Dr. Edis Mayo MD : [id number] BED: 1 DIS: 07/09/2023 SPEC #: [id number] RECD: 07/08/23 07:31 STATUS: [place] #: [id number] CARLOS: 07/07/23 00:[address]: Edis Mayo DEPT: CYTOLOGY RECD BY: Mere Diamond ENTERED: 07/08/23 07:32 SP TYPE: Fluid OTHR DR: MD Dr. Adrian Adams DO Dr. Lamia Aljundi, MD Dr. Lee Ann Baggott, MD Dr. Paige Pierce, MD Dr. Tanmay Panchabhai, MD Dr. Victor Velasquez, MD Christina Muller, MECHANICAL LEAD-C Tissues: THORACIC FLUID Procedures: Special Stain Group II Surgery Specimen Level IV Cytospin Fluid HEADER OPERATION: Thoracentesis - right chest PRE-OP DIAGNOSIS: Pleural effusion TISSUE SUBMITTED: Thoracentesis fluid for cytology DIAGNOSIS CYTOLOGY Thoracentesis fluid for cytology (cytospin and cell block): Negative for malignant cells. Marked acute inflammation. See comment. ULISES:sinan 07/11/2023 COMMENT Please make reference to previous specimen ([id number] and [id number]), thoracentesis fluid for cytology with diagnosis of marked acute inflammation and negative for malignant cells. Clinical correlation and appropriate follow up are necessary. CYTOLOGY STUDY Slides are reviewed. CYTOLOGY GROSS Received is 90 ml of yellow cloudy fluid labeled with the patient's name and and designated per the requisition as thoracentesis. Submitted for cytology preparation including cell block. / sinan 07/08/2023 TC:2 CPT: 38382, 36383
--- NOTE | 2023-07-07 09:07 | EX.ED.DYSGE1 ---
HPI History of Present Illness Chief Complaint: Nausea/Vomiting Detail of Chief Complaint: Nausea and vomiting with upper abdominal pain and chest tightness Informant: patient and spouse/S.O. Onset/Context/Timing Onset: Yesterday (Yesterday afternoon) Context: Sudden Onset Timing: Intermittent and Waxes and wanes Quality: Pain in the upper mid abdomen and tightness central chest Location: Previously described Current Severity: Mild Maximum Severity: Severe Worsened by: Nausea and vomiting Relieved by: Nothing Associated Symptoms Associated Symptoms: Thirst, dry mouth, orthostatic symptoms, decreased urine output Narrative Narrative: Patient is a 68-year-old woman with COPD abdominal pain associated with nausea and vomiting started last after on oxygen nasal cannula once with nausea and vomiting started yesterday and has had dry heaves since midnight. She states anytime she attempts to drink anything she vomits and now has dry heaves. She has not had a bowel movement in 2 days. She is not passing much gas. There is no history of partial small bowel obstruction. Patient does have history of peptic ulcer disease. She denies blood or coffee-ground appearance to her emesis. She denies black or maroon-colored stool. Patient does endorse thirst, dry mouth and orthostatic symptoms. She also endorses decreased urine output. She denies history of liver disease. She is status postcholecystectomy. She states she was seen on Tuesday. She had CAT scan at that time which was unremarkable. Review of prior records indicates patient has history of renal insufficiency, peptic ulcer disease with GI bleed, end-stage COPD and a former smoker. She quit 9 years ago. Oxygen Prior similar symptoms: Yes Recent Illness/Hospitalization: Yes PFSH PFS Medical History Anxiety Asthma Benign essential hypertension Benign essential tremor COPD (chronic obstructive pulmonary disease) Former tobacco use Lung nodules Migraines On home oxygen therapy Pneumonia due to COVID-19 virus Home Medications albuterol sulfate 90 mcg/actuation aerosol inhaler (Ventolin HFA) 2 puff inhalation Q4H PRN PRN Shortness Of Breath 08/28/15 [History Last Taken 07/06/23] montelukast 10 mg tablet 10 mg PO QHS ALLERGIES 02/25/18 [History Last Taken 07/06/23] fluticasone fur. 100 mcg-umeclid 62.5 mcg-vilant 25 mcg inhalat.powder (Trelegy Ellipta) 1 inh inhalation DAILY COPD 05/01/21 [History Last Taken 07/06/23] fluticasone propionate 50 mcg/actuation nasal spray,suspension 2 spray intranasal QHS ALLERGIES 05/01/21 [History Last Taken 07/06/23] buspirone 5 mg tablet 10 mg (2 x 5 mg) PO BID anxiety 30 days #120 tabs 06/16/23 [Rx Last Taken 07/06/23] metoprolol tartrate 25 mg tablet 25 mg PO BID HTN 30 days #60 tabs 06/16/23 [Rx Last Taken 07/06/23] pantoprazole 40 mg tablet,delayed release (Protonix) 40 mg PO BID GERD 30 days #60 tabs 06/23/23 [Rx Last Taken 07/06/23] sucralfate 1 gram tablet 1 g PO 0700,1100,1600 GI 30 days #90 tabs 06/23/23 [Rx Last Taken 07/06/23] Allergy/AdvReac Type Severity Reaction Status Date / Time cephalexin monohydrate Allergy Chest Verified 07/07/23 08:52 [From Keflex] tightness Surgical History H/O bilateral salpingectomy History of herniorrhaphy Hx of cholecystectomy Hx of tonsillectomy Social History adopted: Yes household members: family housing: house Smoking Status: Former smoker alcohol intake: never substance use type: does not use ROS ROS ED Constitutional Constitutional ED: Reports chills; Denies fever(s), subjective, sweats or weight loss Eyes Eyes: Denies blurry vision, change in vision or diplopia ENT ENT ED: Denies ear pain, rhinorrhea or sore throat Cardiovascular Cardiovascular: Reports chest pain; Denies orthopnea, palpitations, paroxysmal nocturnal dyspnea or racing heartbeat Respiratory/Chest Respiratory/Chest: Denies cough, dyspnea, dyspnea on exertion, orthopnea or paroxysmal nocturnal dyspnea Gastrointestinal Gastrointestinal: Reports abdominal pain, nausea and vomiting; Denies constipation, diarrhea or melena Genitourinary Genitourinary ED: Reports other Details: Decreased urine output ; Denies dysuria, hematuria or urinary frequency Musculoskeletal Musculoskeletal: Denies arthralgias or myalgias Integumentary Denies rash Neurologic Neurologic: Reports weakness; Denies headache(s) or paresthesias Endocrine Endocrinology: Denies cold intolerance or heat intolerance Hematologic/Lymphatic Hematologic/Lymphatic: Reports systems reviewed and no addt'l complaints, except as documented EXAM Physical Exam Const Vital Signs: 07/07/23 08:52 07/07/23 11:06 07/07/23 13:10 Temperature 96.6 F L 99.5 F H 99 F Temperature Source Temporal Temporal Pulse Rate 96 97 93 Respiratory Rate 16 15 18 Respiratory Effort Short of Breath Respiratory Pattern Normal Blood Pressure 129/83 H 156/64 H 149/67 H Blood Pressure Mean 98 94 Pulse Ox 93 97 Oxygen Delivery Method Room Air Nasal Cannula Nasal Cannula Oxygen Flow Rate (L/min) 3 3 07/07/23 13:22 07/07/23 13:30 07/07/23 13:57 Temperature Temperature Source Pulse Rate 93 88 90 Respiratory Rate 18 18 22 H Respiratory Effort Respiratory Pattern Blood Pressure 148/66 H 148/72 H 148/72 H Blood Pressure Mean 97 Pulse Ox 97 Oxygen Delivery Method Nasal Cannula Nasal Cannula Nasal Cannula Oxygen Flow Rate (L/min) 3 3 3 07/07/23 15:07 Temperature 99.5 F H Temperature Source Pulse Rate 90 Respiratory Rate 18 Respiratory Effort Respiratory Pattern Blood Pressure 148/69 H Blood Pressure Mean 95 Pulse Ox 96 Oxygen Delivery Method Oxygen Flow Rate (L/min) Positive well nourished and well developed Constitutional Narrative: Patient does not appear well. She does not appear toxic. General Appearance ED: well developed; Negative for cyanotic, diaphoretic, NAD or pallor HEENT Reports dry mucous membranes HEENT Narrative: Head is atraumatic and normocephalic. Ears are normal. Nares are patent. Posterior pharynx is normal. Mouth ED: Yes dry mucous membranes Mouth: dry mucous membranes Eyes PERRL and EOMs intact bilaterally General Eye ED: Negative for pale conjunctiva or scleral icterus Neck no lymphadenopathy, supple and no JVD Chest Wall Chest Narrative: There is no reproducible chest pain. Resp normal respiratory effort and clear to auscultation bilaterally Cardio regular rate, regular rhythm, S1 normal heart sound, S2 normal heart sound and no murmurs GI no masses; Negative for non-tender, non-distended or hepatosplenomegaly Inspection: abdominal distention Auscultation: hypoactive bowel sounds Palpation: soft and tender epigastric Back/Spine no CVA tenderness Extremity normal to inspection General Extremety ED: Negative for edema or tenderness General Extremity: Negative for edema Neuro oriented x3 and CN's II-XII intact bilaterally Sensorium / Orientation: alert Psych mental status grossly normal Skin no rashes or lesions noted, no wounds and No skin turgor normal General Skin Exam: Negative for jaundice or pallor MDM MDM MDM Narrative Medical decision making narrative: Clinically patient is dehydrated. 1 L normal saline was ordered. Because of history of elevated creatinine will obtain basic metabolic panel to assess renal function, CO2 anion gap and electrolytes. CBC was obtained to assess H&H. Abdominal series was ordered to determine if patient has ileus versus nonspecific gas pattern versus possible partial small bowel obstruction. She had a scan on Tuesday did not repeat at this time. Understanding as well that abdominal series only has a sensitivity of 60% for bowel obstruction whereas CT is significantly more sensitive. Patient will receive Zofran for her nausea and vomiting. Because she reported chest tightness will obtain EKG and troponin in the event that this is an atypical presentation for coronary presentation. History & Record Review Additional record(s) reviewed:: Prior ED visit and Prior labs Lab Data Attestation: I reviewed the patient's lab results. Lab results narrative: White count is slightly elevated with mild shift. First troponin is normal. Basic metabolic panel is remarkable for hypokalemia with potassium of 2.7. CO2 is elevated 37. Review of prior laboratory results indicates patient has chronic anemia. She also has history of CO2 retention. Labs: Laboratory Results - last 24 hr 07/07/23 07/07/23 07/07/23 09:15 13:13 15:00 WBC 11.7 H RBC 3.66 L Hgb 10.7 L Hct 32.9 L MCV 89.9 MCH 29.2 MCHC 32.5 RDW Std Deviation 47.1 H RDW Coeff of Laly 14.4 Plt Count 553 H MPV 9.2 Immature Gran % (Auto) 0.500 Neut % (Auto) 80.3 H Lymph % (Auto) 9.3 L Shackelford % (Auto) 9.5 Eos % (Auto) 0.1 Baso % (Auto) 0.3 Absolute Neuts (auto) 9.4 H Absolute Lymphs (auto) 1.09 Nucleated RBC % 0 Sodium 137 Potassium 2.7 L* Chloride 94 L Carbon Dioxide 37.0 H Anion Gap 6 BUN 7 Creatinine 0.46 L Estim Creat Clear Calc 47.14 Est GFR (MDRD) Af Amer 175 Est GFR (MDRD) Non-Af 145 BUN/Creatinine Ratio 15.3 Glucose 114 H Lactic Acid 0.8 Calcium 9.5 Magnesium 2.0 Troponin I High Sens 13 Fluid Source THORACENTESIS Fluid Color YELLOW Fluid Appearance CLEAR Fluid WBC 9.292 Fluid RBC 2 Fluid Tot Cell Count 9.308 H Fld Polynuclear WBCs # 8.495 Fld Polynuclear WBCs % 91.4 Fluid Mononuclear WBCs 0.797 Fld Mononuclear WBCs % 8.6 Fluid Neutrophils 60 Fluid Lymphocytes 31 Fluid Monocytes 7 Fluid Macrophages 2 Fl Pathologist Comment May follow Fluid Glucose 7 L* Fluid Total Protein 3.3 Fluid LDH 876 Fluid Comment 2 SEE COMMENT Radiography Chest X-Ray - ED: Read by ED Physician (Three-view x-ray of the abdomen was obtained independent reviewed by me at 0945. Patient has an ossific gas pattern. There is no edema to the bowel wall, air-fluid levels or pneumothorax. Chest portion reveals interstitial changes right lower lobe and the is a small effusion. Will need to compar) Diagnostic Testing: Clinical Impression(s) from Imaging Studies Acute Abdomen Series 07/07/23 09:25 IMPRESSION: 1. Increased right subpulmonic pleural effusion causing increased compressive atelectasis of right lung base. 2. Gas in small and large bowel loops but no bowel obstruction. Electronically Signed: Guido Metzger MD at 9:50 EST , Chest X-Ray 07/07/23 13:26 IMPRESSION: Decrease in right pleural effusion with no other change and no complicating features. Electronically Signed: Hosea Mendez MD at 13:43 EST , Management Discussion w/another healthcare provider: Hospitalist (Hospitalist was paged for admission since patient has a David pneumonic effusion that is infected., Empyema), [employer] (Consulted pulmonary since patient has an infected right pleural effusion status post pneumonia. She also has history of COPD. Cultures were obtained. Blood cultures were obtained prior to administration of antibiotics. Spoke with telephone lines repairer, Dr. Weeks who was aware of the patient. She cared ) and Other (Spoke with the intake nurse for [facility] transfer line. She will contact hospitalist. Patient be placed on the waiting list. She informed me it will be probably 3 to 4 days before she can be excepted.) Treatment and Re-Evaluation :: Plan is admission to [facility] since surrounding hospitals are on bypass and have no bed availability. Discharge Plan Dx/Rx/DC Orders Clinical Impression: Empyema of pleural space, Acute exacerbation of chronic obstructive pulmonary disease, Acute bronchospasm, Dyspnea on exertion, Chronic hypoxemic respiratory failure, Elevated blood pressure reading without diagnosis of hypertension Disposition Disposition: Acute Care Hospital [facility]
[2023-07-07] MEDS: Ondansetron 4 MG/2 ML Vial IV ×4 (09:19→19:32)
[2023-07-07] MEDS: 0.9% Normal Saline (1000mL) 1,000 ML 1000 ML IV (09:20)
--- NOTE | 2023-07-07 09:25 | RAD_ITS ---
EXAM: XR ABDOMEN, 2 VIEWS AND XR CHEST, 1 VIEW CLINICAL INDICATION: Nausea vomiting, distention TECHNIQUE: Frontal view of the chest, frontal view of the abdomen/pelvis and upright or decubitus view of the abdomen. COMPARISON: 06/20/2023 chest radiograph. No prior abdominal radiographs for comparison. FINDINGS: CHEST: LUNGS AND PLEURAL SPACES: Increased right subpulmonic pleural effusion with mild compressive atelectasis of right lung base. No pneumothorax. HEART: Unremarkable. Cardiac silhouette not enlarged. MEDIASTINUM: Central airways and mediastinal contour are unremarkable. ABDOMEN: INTRAPERITONEAL SPACE: No free air. GASTROINTESTINAL TRACT: Gas in small and large bowel loops without definite obstruction. ORGANS: Unremarkable as visualized. No organomegaly. No abnormal calcifications. TUBES, LINES AND DEVICES: None. BONES/JOINTS: No acute findings. SOFT TISSUES: No acute findings. RAD/Acute Abdomen Inc Chest IMPRESSION: 1. Increased right subpulmonic pleural effusion causing increased compressive atelectasis of right lung base. 2. Gas in small and large bowel loops but no bowel obstruction. Electronically Signed: Guido Metzger MD at 9:50 EST ,
[2023-07-07 09:28] LABS: Absolute Lymphocyte Count 1.09 X10^3/uL (0.83-4.51); Absolute Neutrophil Count 9.4 X10^3/uL (2.0-7.7); Basophil# 0.03 X10^3/uL; Basophil% 0.3 % (0-1); Eosinophil# 0.01 X10^3/uL; Eosinophils% 0.1 % (0-5); Hematocrit 32.9 % (37-47); Hemoglobin 10.7 g/dL (12.0-15.0); Lymphocyte # 1.09 X10^3/ul (0.83-4.51); Lymphocyte % 9.3 % (19-41); Mean Corp Hgb Conc 32.5 g/dL (32-36); Mean Corpuscular Hgb 29.2 pg (27.0-32.0); Mean Corpuscular Volume 89.9 fL (81-99); Mean Platelet Vol. 9.2 fl (6.2-12.0); Monocyte# 1.11 X10^3/uL; Monocyte% 9.5 % (0-10); NRBC Flagged by Analyzer 0 % (0-5); Neutrophil # 9.37 X10^3/uL (2.7-7.7); Neutrophil % 80.3 % (47-70); Platelet Count 553 K/mm3 (150-450); RBC Distribution Width CV 14.4 % (11.6-14.6); RBC Distribution Width SD 47.1 fl (35.1-43.9); Red Blood Count 3.66 M/mm3 (4.2-5.4); White Blood Count 11.7 K/mm3 (4.4-11.0)
[2023-07-07 09:44] LABS: Anion Gap 6 (5-15); BUN 7 mg/dL (7-18); BUN/Creat Ratio 15.3 RATIO (10-20); Calcium,Total 9.5 mg/dL (8.5-10.1); Chloride 94 mmol/L (98-107); Creatinine, Serum 0.46 mg/dL (0.55-1.02); EST Glomerular Filtration Rate 145 mL/min (>60); Est Glom Filt Rate - Afr Amer 175 mL/min (>60); Estimated Creatinine Clearance 47.14 ml/min; Glucose 114 mg/dL (74-106); Potassium 2.7 mmol/L (3.5-5.1); Sodium Level 137 mmol/L (136-145); Troponin-I HS 13 pg/mL (3.0-54.0)
[2023-07-07] MEDS: Potassium Chloride Oral Soln 20 MEQ/15 ML UDC 40 MEQ PO (11:02)
[2023-07-07] MEDS: Lidocaine 2% (20 ml mdv) 20 ML Vial INFILT (13:17)
--- NOTE | 2023-07-07 13:26 | RAD_ITS ---
STUDY: X-RAY CHEST REASON FOR EXAM: Female, 68 years old. Postthoracentesis. Follow-up. TECHNIQUE: Single frontal view of the chest on 2 images. COMPARISON: July 07, 2023 FINDINGS: Mild diffuse interstitial pattern. Decrease in right pleural effusion. No complications. Cardiomegaly unchanged. Normal mediastinum and katelyn. Normal visualized pulmonary arteries. Aortic tortuosity with calcification, unchanged. Normal visualized thoracic spine. Stable right shoulder arthroplasty. There is no demonstrated abnormality of the visualized soft tissue structures of the upper abdomen. RAD/Chest Insp/Exp 2 View IMPRESSION: Decrease in right pleural effusion with no other change and no complicating features. Electronically Signed: Hosea Mendez MD at 13:43 EST ,
--- NOTE | 2023-07-07 13:32 | PRO.PCM_ITS ---
Procedure Report Date of Procedure: 07/07/23 Assessment & Plan Assessment/Plan (1) Pleural effusion, right: PLAN: PROCEDURE: Ultrasound Guided Thoracentesis ORDERING PROVIDER: Dr. Zach Thomas INDICATION: Female, 68 years old. Recurrent right pleural effusion. PROVIDER: VALARIE Murphy PROCEDURE: The risks, benefits, and alternatives to the procedure were explained to the patient. The specific risks of bleeding, infection, and pneumothorax requiring chest tube insertion were discussed and accepted. Written informed consent was obtained. The patient was placed in the sitting, upright position. Ultrasonographic evaluation of the bilateral lower pleural spaces was carried out. An adequate pocket was identified in the right lower pleural space.The overlying skin was prepped and draped in sterile fashion. 2% lidocaine was administered subcutaneously for local anesthesia. Under ultrasound guidance, a 5-[place] thoracentesis needle/catheter system was advanced into the right posterior lower pleural fluid collection. 100 ml of cloudy yellow colored fluid was drained. This fluid was sent to the laboratory for analysis, as per requesting physician the catheter was removed, and a sterile dressing was applied. The patient tolerated the procedure well. A chest x-ray was ordered. IMPRESSION: Successful ultrasound-guided thoracentesis of recurrent right pleural effusion. Procedures Radiology Radiology US Procedures: 00331 Thoracentesis
[2023-07-07 14:22] LABS: Body Fluid Mononuclear WBC # 0.797 10^3/uL; Body Fluid Mononuclear WBC % 8.6 %; Body Fluid Polynuclear WBC # 8.495 10^3/uL; Body Fluid Polynuclear WBC % 91.4 %; Body Fluid Total Cells Counted 9.308 10^3/ul; White Blood Count/Body Fluid 9.292 10^3/uL
[2023-07-07 14:31] LABS: Glucose, Body Fluid 7 mg/dL (40-70); LDH,Body Fluid 876 Units/L (Not Establ.); Protein, Body Fluid 3.3 g/dL (Not Establ.)
[2023-07-07 15:10] LABS: Auto B Fluid Analyzer BKGD Ct COUNTS W/IN LIMITS (W/IN LIMITS)
[2023-07-07 15:11] LABS: Appearance/Body Fluid CLEAR; Color/Body Fluid YELLOW; Source- Body Fluid THORACENTESIS
[2023-07-07 15:12] LABS: Red Cell Count/Body Fluid 2 /mm3
[2023-07-07] MEDS: Morphine 4 MG/ML Syringe IV (15:16)
[2023-07-07] MEDS: Piperacil/Tazobactam 3.375 GM in 0.9% Normal Saline (50mL MB+) 50 ML IV ×2 (15:16→23:12)
[2023-07-07 15:23] LABS: Lymphocytes 31 %; Macrophages 2 %; Monocytes 7 %; Neutrophil (Segs) 60 %
[2023-07-07] MEDS: Vancomycin HCl 750 MG in 0.9% Normal Saline (250mL Bag) 250 ML 250 MG IV ×2 (15:44→21:41)
[2023-07-07 15:53] LABS: Lactic Acid 0.8 mmol/L (0.4-1.9)
[2023-07-07 15:56] LABS: Body Fluid QC Type(s) BF1Q,BF2Q
--- NOTE | 2023-07-07 17:21 | PCM.HP.STD ---
[facility] - General General Date of Admission: 07/07/23 Date of Service: 07/07/23 Chief Complaint: SOB, hypoxia, n/v HPI Narrative SNEHA CARDENAS, is a 68 F with history of COPD, GERD/duodenal ulcers, paroxysmal atrial fibrillation, anxiety who presented to [facility] 07/07/2023 with nausea and vomiting and upper abdominal pain/feeling generally unwell. She was here in the ED 1/ with abdominal pain and no acute process was found so patient discharged at that time however she reports she has continued to feel worse prompting her to come back. Given she had not had bowel movement in 2 days and has had nausea and vomiting she had KUB which showed right-sided effusion, patient had thoracentesis in ED with lab studies consistent with empyema. Her hair stylist was contacted by ED and it was recommended patient be transferred for CT surgery, she was accepted at [facility] however no beds at present so hospitalist contacted and asked to admit patient while awaiting bed. Patient seen with family member at bedside. They report she has been generally unwell for the past couple of months and has had multiple medical problems, reports one of her main complaints today was nausea and vomiting with some upper abdominal pain and chest tightness with no bowel movements for 2 days but also has been more short of breath on exertion with O2 sats down to 85% at home on her regular 3 L, has had cough though reports she has not been able to produce significant sputum, has had some chills and swelling in her feet, also feeling weak all over. Patient agreeable to admission while pending transfer. [facility] Medical History (Updated 07/07/23 @ 21:[address] Diana Santillan MD) Anxiety Asthma Atrial fibrillation Benign essential hypertension Benign essential tremor COPD (chronic obstructive pulmonary disease) Former smoker Former tobacco use Lung nodules Migraines On home oxygen therapy Pneumonia due to COVID-19 virus Home Medications albuterol sulfate 90 mcg/actuation aerosol inhaler (Ventolin HFA) 2 puff inhalation Q4H PRN PRN Shortness Of Breath 08/28/15 [History Last Taken 07/06/23] montelukast 10 mg tablet 10 mg PO QHS ALLERGIES 02/25/18 [History Last Taken 07/06/23] fluticasone fur. 100 mcg-umeclid 62.5 mcg-vilant 25 mcg inhalat.powder (Trelegy Ellipta) 1 inh inhalation DAILY COPD 05/01/21 [History Last Taken 07/06/23] fluticasone propionate 50 mcg/actuation nasal spray,suspension 2 spray intranasal QHS ALLERGIES 05/01/21 [History Last Taken 07/06/23] buspirone 5 mg tablet 10 mg (2 x 5 mg) PO BID anxiety 30 days #120 tabs 06/16/23 [Rx Last Taken 07/06/23] metoprolol tartrate 25 mg tablet 25 mg PO BID HTN 30 days #60 tabs 06/16/23 [Rx Last Taken 07/06/23] pantoprazole 40 mg tablet,delayed release (Protonix) 40 mg PO BID GERD 30 days #60 tabs 06/23/23 [Rx Last Taken 07/06/23] sucralfate 1 gram tablet 1 g PO 0700,1100,1600 GI 30 days #90 tabs 06/23/23 [Rx Last Taken 07/06/23] Allergy/AdvReac Type Severity Reaction Status Date / Time cephalexin monohydrate Allergy Chest Verified 07/07/23 08:52 [From Keflex] tightness Surgical History H/O bilateral salpingectomy History of herniorrhaphy Hx of cholecystectomy Hx of tonsillectomy Social History adopted: Yes household members: family housing: house Smoking Status: Former smoker alcohol intake: never substance use type: does not use ROS ROS Narrative General: Has felt some chills HENT: May be headache EYES: Denies changes in vision Resp: Increased shortness of breath and dry cough Cardiac: Had felt some chest tightness GI: Decrease in bowel movements, nausea and vomiting, some upper abdominal pain : Denies changes in urination Extremity: Has felt like her lower extremities have been somewhat swollen MSK: Generalized weakness Neuro: Denies any numbness/tingling Heme: Denies any bleeding or bruising Skin: Denies rashes Psychiatric: No complaints voiced Vital Signs Vital Signs Vital Signs: 07/07/23 08:52 07/07/23 11:06 07/07/23 13:10 Temperature 96.6 F L 99.5 F H 99 F Temperature Source Temporal Temporal Pulse Rate 96 97 93 Respiratory Rate 16 15 18 Respiratory Effort Short of Breath Respiratory Pattern Normal Blood Pressure 129/83 H 156/64 H 149/67 H Blood Pressure Mean 98 94 Pulse Ox 93 97 Oxygen Delivery Method Room Air Nasal Cannula Nasal Cannula Oxygen Flow Rate (L/min) 3 3 07/07/23 13:22 07/07/23 13:30 07/07/23 13:57 Temperature Temperature Source Pulse Rate 93 88 90 Respiratory Rate 18 18 22 H Respiratory Effort Respiratory Pattern Blood Pressure 148/66 H 148/72 H 148/72 H Blood Pressure Mean 97 Pulse Ox 97 Oxygen Delivery Method Nasal Cannula Nasal Cannula Nasal Cannula Oxygen Flow Rate (L/min) 3 3 3 07/07/23 15:07 Temperature 99.5 F H Temperature Source Pulse Rate 90 Respiratory Rate 18 Respiratory Effort Respiratory Pattern Blood Pressure 148/69 H Blood Pressure Mean 95 Pulse Ox 96 Oxygen Delivery Method Oxygen Flow Rate (L/min) Weight Weight: 55.792 kg Body Mass Index (BMI) 21.1 Physical Exam Narrative General: Alert, oriented, appears tired HEENT: Atraumatic, normocephalic Eyes: Anicteric, normal conjunctiva, extraocular movements grossly intact Neck: Supple Respiratory: Slight increased respiratory effort, diminished right greater than left Cardiovascular: Regular rate GI: Soft, no rebound, guarding, rigidity, nondistended Extremities: No significant pitting edema Musculoskeletal: Moving all extremities Neuro: No overt focal neurological deficits Skin: No rashes appreciated Psych: Cooperative Results Lab / Micro Data 07/07/23 09:15 07/07/23 09:15 Labs: Laboratory Results - last 24 hr 07/07/23 09:15: WBC 11.7 H, RBC 3.66 L, Hgb 10.7 L, Hct 32.9 L, MCV 89.9, MCH 29.2, MCHC 32.5, RDW Std Deviation 47.1 H, RDW Coeff of Laly 14.4, Plt Count 553 H, MPV 9.2, Immature Gran % (Auto) 0.500, Neut % (Auto) 80.3 H, Lymph % (Auto) 9.3 L, [place] % (Auto) 9.5, Eos % (Auto) 0.1, Baso % (Auto) 0.3, Absolute Neuts (auto) 9.4 H, Absolute Lymphs (auto) 1.09, Nucleated RBC % 0, Sodium 137, Potassium 2.7 L*, Chloride 94 L, Carbon Dioxide 37.0 H, Anion Gap 6, BUN 7, Creatinine 0.46 L, Estim Creat Clear Calc 47.14, Est GFR (MDRD) Af Amer 175, Est GFR (MDRD) Non-Af 145, BUN/Creatinine Ratio 15.3, Glucose 114 H, Calcium 9.5, Magnesium 2.0, Troponin I High Sens 13 07/07/23 13:13: Fluid Source THORACENTESIS, Fluid Color YELLOW, Fluid Appearance CLEAR, Fluid WBC 9.292, Fluid RBC 2, Fluid Tot Cell Count 9.308 H, Fld Polynuclear WBCs # 8.495, Fld Polynuclear WBCs % 91.4, Fluid Mononuclear WBCs 0.797, Fld Mononuclear WBCs % 8.6, Fluid Neutrophils 60, Fluid Lymphocytes 31, Fluid Monocytes 7, Fluid Macrophages 2, Fl Pathologist Comment May follow, Fluid Glucose 7 L*, Fluid Total Protein 3.3, Fluid LDH 876, Fluid Comment 2 SEE COMMENT 07/07/23 15:00: Lactic Acid 0.8 Micro: Microbiology 07/07/23 13:13 Fluid - Thoracentesis Fluid Gram Stain - Final Imagaing Radiology Impression Acute Abdomen Series 07/07/23 09:25 IMPRESSION: 1. Increased right subpulmonic pleural effusion causing increased compressive atelectasis of right lung base. 2. Gas in small and large bowel loops but no bowel obstruction. Electronically Signed: Guido Metzger MD at 9:50 EST , Chest X-Ray 07/07/23 13:26 IMPRESSION: Decrease in right pleural effusion with no other change and no complicating features. Electronically Signed: Hosea Mendez MD at 13:43 EST , Assessment & Plan Assessment/Plan (1) Empyema of pleural space: (2) Hx of ulcer disease: (3) Chronic hypoxemic respiratory failure: (4) Atrial fibrillation: (5) COPD (chronic obstructive pulmonary disease): PLAN: Plan #Empyema in setting of chronic hypoxic resp failure on 3L NC O2 for chronic COPD -sp thoracentesis w/ lab studies suggestive of empyema -Patient awaiting bed at [facility] -Vanc/zogarry -Nebs, budesonide -I/S -Pulmonology consulted while patient admitted at our facility # Hypokalemia -Replaced w/ plan to recheck #GERD with recent duodenal ulcers and GI bleed -Continue PPI and sucralfate -Hemoglobin presently stable # History of paroxysmal atrial fibrillation -Not presently on anticoagulation given recent GI bleed -Continue metoprolol # Anxiety -Continue BuSpar #DVT ppx: SCDs Diana Santillan MD Time spent in the patient's overall evaluation,decision-making process, review of diagnostic data, adjustment of management, discussion with other providers, nursing nursing and ancillary staff involved in patient's care documentation, 55 minutes Charges/Coding Visit Charges Inpatient E&M: 89216 Init Hosp L2
--- OUTSIDE RECORDS SUMMARY | 2023-07-07 19:04 | XMS RPT_ITS | CCD ---
Author Name Unknown Address [id number] [place] [address] Organization [facility] Care Team Providers Care Seo Coordinator Name Role Phone SENAIT CHAUDHRY Attending Unavailable SENAIT CHAUDHRY Primary Care Unavailable SENAIT CHAUDHRY Admitting Unavailable SENAIT CHAUDHRY Attending Unavailable SENAIT CHAUDHRY Primary Care Unavailable SENAIT CHAUDHRY Admitting Unavailable Pedro DORANTES, Julio Choudhary Primary Care Provider [phone] Pedro DORANTES, Julio Choudhary Primary Care Provider [phone] Pedro DORANTES, Julio Choudhary Primary Care Provider [phone] PHYSICIAN, NONE Attending Unavailable PHYSICIAN, NONE Primary Care Unavailable PEDRO, JULIO Choudhary Primary Care Unavailable PEDRO, JULIO Choudhary Referring Unavailable DRAPER, JULIO Choudhary Primary Care Unavailable JULIO DRAPER Attending Unavailable PEDRO, JULIO Choudhary Primary Care Unavailable JESSIE WALKER Attending Unavailable JESSIE WALKER Referring Unavailable DRAPER, JULIO Choudhary Primary Care Unavailable DRAPER, JULIO Choudhary Primary Care Unavailable TASHA PALACIOS Attending Unavailable JASMINE EVANGELISTA Attending Unavailable PEDRO, JULIO Choudhary Primary Care Unavailable DRAPER, JULIO Choudhary Primary Care Unavailable PEDRO, JULIO Choudhary Attending Unavailable PEDRO, JULIO Choudhary Referring Unavailable DRAPER, JULIO Choudhary Primary Care Unavailable JASMINE EVANGELISTA Referring Unavailable DRAPER, JULIO Choudhary Primary Care Unavailable DRAPER, JULIO Choudhary Primary Care Unavailable PEDRO, JULIO Choudhary Attending Unavailable JASMINE EVANGELISTA Attending Unavailable PEDRO, JULIO Choudhary Primary Care Unavailable JASMINE EVANGELISTA Referring Unavailable JULIO DRAPER Primary Care Unavailable JULIO DRAPER Primary Care Unavailable JULIO DRAPER Attending Unavailable JULIO DRAPER Primary Care Unavailable JULIO DRAPER Referring Unavailable Allergies Allergy Classification Reported Allergen(s) Allergy Type Date of Onset Reaction(s) Facility (20 sources) Cephalexin; Translations: [CEPHALEXIN] Drug Allergy 10-04-2005 Intolerance [facility] Work Phone: Medications Current Medications Medication Drug Class(es) Dates Sig (Normalized) Sig (Original) cefdinir 300 mg oral capsule (1 source) Cephalosporin Antibacterial Start: 10-14-2021 End: 10-21-2021 take 1 capsule by mouth twice daily cefdinir (OMNICEF) 300 mg capsule Take 1 capsule by mouth twice daily for 7 days. 14 capsule 0 10/14/2021 10/21/2021 Active Completed/Discontinued Medications Medication Drug Class(es) Dates Sig (Normalized) Sig (Original) [id number] 200 actuat albuterol 0.09 mg/actuat metered dose inhaler (20 sources) beta2-Adrenergic Agonist Start: 05-27-2023 take 2 puff(s) by inhalation every four hours as needed albuterol HFA (PROAIR HFA) 90 mcg/actuation inhaler Inhale 2 Puffs as instructed every 4 hours as needed. 36 g 2 05/27/2023 Active Problems Active Problems Problem Classification Problem Date Documented Da te Episodic/Chronic Chronic obstructive pulmonary disease and bronchiectasis (20 sources) Asthma-chronic obstructive pulmonary disease overlap syndrome; Translations: [Chronic obstructive pulmonary disease, unspecified] Onset: 3 02-15-2019 Chronic Conditions associated with dizziness or vertigo (1 source) Vertigo; Translations: [Dizziness and giddiness] Episodic Disorders of lipid metabolism (20 sources) Hyperlipidemia; Translations: [Hyperlipidemia, unspecified] Onset: 9 02-15-2019 Chronic Gastroduodenal ulcer (except hemorrhage) (1 source) Duodenal ulcer, unspecified as acute or chronic, without hemorrhage or perforation; Translations: [Multiple duodenal ulcers] Onset: 3 Chronic Gastrointestinal hemorrhage (1 source) Gastrointestinal hemorrhage, unspecified; Translations: [Upper GI bleed] Onset: 3 Episodic Osteoporosis (20 sources) Senile osteoporosis; Translations: [Age-related osteoporosis without current pathological fracture] Onset: 2 08-28-2021 Chronic Other ear and sense organ disorders (1 source) Impacted cerumen of bilateral ears; Translations: [Impacted cerumen, bilateral] Episodic Other hereditary and degenerative nervous system conditions (20 sources) Essential tremor; Translations: [Essential tremor] Onset: 8 08-29-2017 Chronic Other lower respiratory disease (1 source) Cough; Translations: [Cough] Episodic Other lower respiratory disease (1 source) Dyspnea; Translations: [Shortness of breath] Episodic Other lower respiratory disease (6 sources) Multiple nodules of lung; Translations: [Other nonspecific abnormal finding of lung field] Episodic Other lower respiratory disease (1 source) Abnormal breath sounds; Translations: [Other abnormalities of breathing] Episodic Other lower respiratory disease (1 source) Other nonspecific abnormal finding of lung field; Translations: [Lung nodules] Onset: 3 Episodic Other skin disorders (1 source) Nail deformity; Translations: [Other nail disorders] Episodic Other upper respiratory infections (1 source) Posterior rhinorrhea; Translations: [Postnasal drip] Episodic Pleurisy; pneumothorax; pulmonary collapse (1 source) Pleural effusion in other conditions classified elsewhere; Translations: [Parapneumonic effusion] Onset: 3 Episodic Pneumonia (except that caused by tuberculosis or sexually transmitted disease) (3 sources) Infective pneumonia; Translations: [Pneumonia, unspecified organism] Onset: 3 Episodic Respiratory failure; insufficiency; arrest (adult) (20 sources) Chronic hypoxemic respiratory failure; Translations: [Chronic respiratory failure with hypoxia] Onset: 3 Chronic Screening and history of mental health and substance abuse codes (6 sources) Ex-smoker; Translations: [Personal history of nicotine dependence] Onset: 3 Episodic Spondylosis; intervertebral disc disorders; other back problems (1 source) Acute low back pain; Translations: [Acute right-sided low back pain without sciatica] Episodic Viral infection (5 sources) Disease caused by 2019-nCoV; Translations: [COVID-19] Episodic Past or Other Problems Problem Classification Problem Date Documented Date Episodic/Chronic Allergic reactions (20 sources) Environmental allergy; Translations: [Other allergy status, other than to drugs and biological substances] Onset: 06-29-2021 06-29-2021 Episodic Immunizations and screening for infectious disease (3 sources) Needs influenza immunization; Translations: [Encounter for immunization] Onset: 11-05-2022 Episodic Other circulatory disease (20 sources) Elevated blood pressure; Translations: [Elevated blood-pressure reading, without diagnosis of hypertension] Onset: 05-03-2022 Episodic Other lower respiratory disease (20 sources) Hypoxemia; Translations: [Hypoxemia] Onset: 05-01-2021 Episodic Other lower respiratory disease (20 sources) Nodule of lung; Translations: [Solitary pulmonary nodule] Onset: 05-12-2021 Episodic Other lower respiratory disease (1 source) Other abnormalities of breathing; Translations: [Abnormal breath sounds] Onset: 11-11-2022 Episodic Other screening for suspected conditions (not mental disorders or infectious disease) (5 sources) Patient encounter status; Translations: [Encounter for screening mammogram for malignant neoplasm of breast] Onset: 11-05-2022 Episodic Results Test Name Value Interpretation Reference Range Facil ity Vital Signs Date Time Vital Sign Value Performing Clinician Faci lity 03-03-2023 14:22-0400 SaO2% (BldA) [Mass fraction] 88 % Jasmine Evangelista MD Work Phone: [facility] 03-03-2023 13:56-0400 Body weight 68.95 kg Jasmine Evangelista MD Work Phone: [facility] 03-03-2023 13:56-0400 Heart rate 73 /min Jasmine Evangelista MD Work Phone: [facility] 03-03-2023 13:56-0400 Respiratory rate 15 /min Jasmine Evangelista MD Work Phone: [facility] 01-07-2023 15:39-0400 Body temperature 97.81 [degF] Julio Draper MD Work Phone: [facility] 01-07-2023 15:39-0400 Body weight 71.22 kg Julio Draper MD Work Phone: [facility] 01-07-2023 15:39-0400 Diastolic blood pressure 70 mm[Hg] Julio Draper MD Work Phone: [facility] 01-07-2023 15:39-0400 Heart rate 91 /min Julio Draper MD Work Phone: [facility] 01-07-2023 15:39-0400 Respiratory rate 22 /min Julio Draper MD Work Phone: [facility] 01-07-2023 15:39-0400 SaO2% (BldA) [Mass fraction] 94 % Julio Draper MD Work Phone: [facility] 01-07-2023 15:39-0400 Systolic blood pressure 133 mm[Hg] Julio Draper MD Work Phone: [facility] 12-10-2022 14:21-0400 Body weight 69.85 kg Jasmine Evangelista MD Work Phone: [facility] 12-10-2022 14:21-0400 Diastolic blood pressure 76 mm[Hg] Jasmine Evangelista MD Work Phone: [facility] 12-10-2022 14:21-0400 Heart rate 94 /min Jasmine Evangelista MD Work Phone: [facility] 12-10-2022 14:21-0400 Respiratory rate 18 /min Jasmine Evangelista MD Work Phone: [facility] 12-10-2022 14:21-0400 SaO2% (BldA) [Mass fraction] 94 % Jasmine Evangelista MD Work Phone: [facility] 12-10-2022 14:21-0400 Systolic blood pressure 132 mm[Hg] Jasmine Evangelista MD Work Phone: [facility] 11-15-2022 13:27-0400 Body weight 70.76 kg Tasha Older PRODUCTION LAPPING MACHINE OPERATOR.DIRECT SALES PROFESSIONAL Work Phone: [facility] 11-15-2022 13:27-0400 Diastolic blood pressure 64 mm[Hg] Tasha Older PRODUCTION LAPPING MACHINE OPERATOR.DIRECT SALES PROFESSIONAL Work Phone: [facility] 11-15-2022 13:27-0400 Heart rate 97 /min Tasha Older PRODUCTION LAPPING MACHINE OPERATOR.DIRECT SALES PROFESSIONAL Work Phone: [facility] 11-15-2022 13:27-0400 Respiratory rate 18 /min Tasha Older PRODUCTION LAPPING MACHINE OPERATOR.DIRECT SALES PROFESSIONAL Work Phone: [facility] 11-15-2022 13:27-0400 SaO2% (BldA) [Mass fraction] 94 % Tasha Older PRODUCTION LAPPING MACHINE OPERATOR.DIRECT SALES PROFESSIONAL Work Phone: [facility] 11-15-2022 13:27-0400 Systolic blood pressure 140 mm[Hg] Tasha Older PRODUCTION LAPPING MACHINE OPERATOR.DIRECT SALES PROFESSIONAL Work Phone: [facility] 11-11-2022 14:32-0400 Body temperature 98.01 [degF] Jessie Older PRODUCTION LAPPING MACHINE OPERATOR.DIRECT SALES PROFESSIONAL Work Phone: [facility] 11-11-2022 14:32-0400 Body weight 71.22 kg Jessie Older PRODUCTION LAPPING MACHINE OPERATOR.DIRECT SALES PROFESSIONAL Work Phone: [facility] 11-11-2022 14:32-0400 Diastolic blood pressure 90 mm[Hg] Jessie Older PRODUCTION LAPPING MACHINE OPERATOR.DIRECT SALES PROFESSIONAL Work Phone: [facility] 11-11-2022 14:32-0400 Heart rate 80 /min Jessie Older PRODUCTION LAPPING MACHINE OPERATOR.DIRECT SALES PROFESSIONAL Work Phone: [facility] 11-11-2022 14:32-0400 Respiratory rate 16 /min Jessie Older PRODUCTION LAPPING MACHINE OPERATOR.DIRECT SALES PROFESSIONAL Work Phone: [facility] 11-11-2022 14:32-0400 SaO2% (BldA) [Mass fraction] 92 % Jessie Older PRODUCTION LAPPING MACHINE OPERATOR.DIRECT SALES PROFESSIONAL Work Phone: [facility] 11-11-2022 14:32-0400 Systolic blood pressure 138 mm[Hg] Jessie Older PRODUCTION LAPPING MACHINE OPERATOR.DIRECT SALES PROFESSIONAL Work Phone: [facility] 05-25-2022 13:14-0500 Body weight 72.58 kg Jasmine Evangelista MD Work Phone: [facility] 05-25-2022 13:14-0500 SaO2% (BldA) [Mass fraction] 98 % Jasmine Evangelista MD Work Phone: [facility] 05-03-2022 13:56-0400 Body temperature 97.7 [degF] Julio Draper MD Work Phone: [facility] 05-03-2022 13:56-0400 Body weight 72.12 kg Julio Draper MD Work Phone: [facility] 05-03-2022 13:56-0400 Diastolic blood pressure 74 mm[Hg] Julio Draper MD Work Phone: [facility] 05-03-2022 13:56-0400 Heart rate 84 /min Julio Draper MD Work Phone: [facility] 05-03-2022 13:56-0400 Respiratory rate 16 /min Julio Draper MD Work Phone: [facility] 05-03-2022 13:56-0400 SaO2% (BldA) [Mass fraction] 97 % Julio Draper MD Work Phone: [facility] 05-03-2022 13:56-0400 Systolic blood pressure 138 mm[Hg] Julio Draper MD Work Phone: [facility] 01-21-2022 15:21-0400 Body height 162.6 cm Luna Fan PA-C Work Phone: [facility] 01-21-2022 15:21-0400 Body weight 71.67 kg Luna Fan PA-C Work Phone: [facility] 01-21-2022 15:21-0400 Heart rate 87 /min Luna Fan PA-C Work Phone: [facility] 01-21-2022 15:21-0400 Respiratory rate 16 /min Luna Fan PA-C Work Phone: [facility] 01-21-2022 15:21-0400 SaO2% (BldA) [Mass fraction] 98 % Luna Fan PA-C Work Phone: [facility] 01-21-2022 15:16-0400 Body height 162.6 cm Respiratory Wstr Work Phone: [facility] 01-21-2022 15:16-0400 Body weight 71.67 kg Respiratory Wstr Work Phone: [facility] 01-21-2022 15:16-0400 Heart rate 87 /min Respiratory Wstr Work Phone: [facility] 01-21-2022 15:16-0400 SaO2% (BldA) [Mass fraction] 98 % Respiratory Wstr Work Phone: [facility] 11-12-2021 12:49-0400 Body weight 71.22 kg Asia Jiménez PRODUCTION LAPPING MACHINE OPERATOR.UTILITY CLERK Work Phone: [facility] 11-12-2021 12:49-0400 Diastolic blood pressure 80 mm[Hg] Asia Jiménez PRODUCTION LAPPING MACHINE OPERATOR.UTILITY CLERK Work Phone: [facility] 11-12-2021 12:49-0400 Heart rate 80 /min Asia Jiménez PRODUCTION LAPPING MACHINE OPERATOR.UTILITY CLERK Work Phone: [facility] 11-12-2021 12:49-0400 Respiratory rate 16 /min Asia Jiménez PRODUCTION LAPPING MACHINE OPERATOR.UTILITY CLERK Work Phone: [facility] 11-12-2021 12:49-0400 Systolic blood pressure 130 mm[Hg] Asia Jiménez PRODUCTION LAPPING MACHINE OPERATOR.UTILITY CLERK Work Phone: [facility] 11-02-2021 11:22-0400 Body temperature 98.1 [degF] Rachel Praisler-Wood PRODUCTION LAPPING MACHINE OPERATOR.DIRECT SALES PROFESSIONAL Work Phone: [facility] 11-02-2021 11:22-0400 Body weight 71.4 kg Rachel Praisler-Wood PRODUCTION LAPPING MACHINE OPERATOR.DIRECT SALES PROFESSIONAL Work Phone: [facility] 11-02-2021 11:22-0400 Diastolic blood pressure 94 mm[Hg] Rachel Praisler-Wood PRODUCTION LAPPING MACHINE OPERATOR.DIRECT SALES PROFESSIONAL Work Phone: [facility] 11-02-2021 11:22-0400 Heart rate 91 /min Rachel Praisler-Wood PRODUCTION LAPPING MACHINE OPERATOR.DIRECT SALES PROFESSIONAL Work Phone: [facility] 11-02-2021 11:22-0400 Respiratory rate 22 /min Rachel Praisler-Wood PRODUCTION LAPPING MACHINE OPERATOR.DIRECT SALES PROFESSIONAL Work Phone: [facility] 11-02-2021 11:22-0400 SaO2% (BldA) [Mass fraction] 90 % Rachel Praisler-Wood PRODUCTION LAPPING MACHINE OPERATOR.DIRECT SALES PROFESSIONAL Work Phone: [facility] 11-02-2021 11:22-0400 Systolic blood pressure 132 mm[Hg] Rachel Praisler-Wood PRODUCTION LAPPING MACHINE OPERATOR.DIRECT SALES PROFESSIONAL Work Phone: [facility] 10-14-2021 10:22-0400 Body temperature 98.01 [degF] Ev Hinkle APRN.DIRECT SALES PROFESSIONAL Work Phone: [facility] 10-14-2021 10:22-0400 Body weight 71.58 kg Ev Hinkle APRN.DIRECT SALES PROFESSIONAL Work Phone: [facility] 10-14-2021 10:22-0400 Diastolic blood pressure 82 mm[Hg] Ev Hinkle APRN.DIRECT SALES PROFESSIONAL Work Phone: [facility] 10-14-2021 10:22-0400 Heart rate 76 /min Ev Hinkle APRN.DIRECT SALES PROFESSIONAL Work Phone: [facility] 10-14-2021 10:22-0400 Respiratory rate 18 /min Ev Hinkle APRN.DIRECT SALES PROFESSIONAL Work Phone: [facility] 10-14-2021 10:22-0400 SaO2% (BldA) [Mass fraction] 96 % Ev Hinkle APRN.DIRECT SALES PROFESSIONAL Work Phone: [facility] 10-14-2021 10:22-0400 Systolic blood pressure 138 mm[Hg] Ev Hinkle APRN.DIRECT SALES PROFESSIONAL Work Phone: [facility] Encounters Encounter Date Encounter Type Care Provider Facility Start: 06-30-2023 End: 07-01-2023 ambulatory JULIO DRAPER Facility:[facility] Start: 06-17-2023 Telephone encounter Julio russo MD Work Phone: [facility] Procedures Date Procedure Procedure Detail Performing Clinician Start: 01-03-2023 Lipid 1996 panel - S jeffrey or Plasma Luna Chavira PA-C Work Phone: Start: 06-05-2022 Wigax-0-tasgjjubvjo total Jasmine Evangelista MD Work Phone: Start: 05-25-2022 Ct thorax w/o contra st material Luna Chavira PA-C Work Phone: Start: 05-03-2022 PFIZER-BIONTECH COVI D-19 BIVALENT BOOSTER VACCINE, AGE 12+ YR Julio Draper MD Work Phone: Start: 05-03-2022 INFLUENZA SEASONAL QUADRIVALENT HIGH DOSE AGE 65+ Julio Draper MD Work Phone: Start: 01-21-2022 Noninvasive ear/puls e oximetry multiple deter Luna Chavira PA-C Work Phone: Start: 08-26-2021 Mammography Ev Hinkle APRN.DIRECT SALES PROFESSIONAL Work Phone: Start: 05-06-2021 Adult depression scr eening assessment Ev Hinkle APRN.DIRECT SALES PROFESSIONAL Work Phone: Start: 08-18-2012 Colonoscopy Ev Hinkle APRN.DIRECT SALES PROFESSIONAL Work Phone: Plan of Treatment Date Care Activity Detail Author Start: 01-04-2028 Lipid 1996 panel - Serum or Plasma Lipid Screening [facility] Start: 01-04-2028 Lipid panel Lipid Screening [facility] Start: 01-04-2028 LIPID SCREEN LIPID SCREEN [facility] Start: 08-05-2026 LIPID SCREEN LIPID SCREEN [facility] Start: 01-03-2026 DIABETES SCREEN DIABETES SCREEN [facility] Start: 01-03-2026 Diabetes Screening Diabetes Screening [facility] Start: 04-12-2024 Urine microalbumin profile [facility] Start: 01-08-2024 ANNUAL PCP TEAM CHRONIC DISEASE VISIT ANNUAL PCP TEAM CHRONIC DISEASE VISIT [facility] Start: 11-16-2023 ANNUAL PCP TEAM CHRONIC DISEASE VISIT ANNUAL PCP TEAM CHRONIC DISEASE VISIT [facility] Start: 11-12-2023 ANNUAL PCP TEAM CHRONIC DISEASE VISIT ANNUAL PCP TEAM CHRONIC DISEASE VISIT [facility] Start: 11-06-2023 ANNUAL PCP TEAM CHRONIC DISEASE VISIT ANNUAL PCP TEAM CHRONIC DISEASE VISIT [facility] Start: 05-31-2023 End: 06-30-2023 Ct thorax w/o contrast material CT CHEST WO IVCON Radiology Routine Lung nodules Centrilobular emphysema (HCC) Former cigarette smoker Expected: 05/31/2023, Expires: 06/30/2023 [facility] Work Phone: Immunizations Immunization Date Immunization Notes Care Provider Fa cility 11-05-2022 pneumococcal Conjuga te, unspecified formulation Julio Draper MD Work Phone: [facility] Work Phone: 11-05-2022 pneumococcal (PCV20) vaccine, 20 valent (PREVNAR 20) Julio Draper MD Work Phone: [facility] 05-03-2022 COVID-19 booster vaccine, age 12+ yr, bivalent (PFIZER-BIONTECH) Julio Draper MD Work Phone: [facility] Work Phone: 05-03-2022 influenza, high-dose , quadrivalent vaccine (FLUZONE HIGH DOSE QUADRIVALENT) Julio Draper MD Work Phone: [facility] Work Phone: 05-03-2022 influenza virus vacc ine, unspecified formulation Luna Chavira PA-C Work Phone: [facility] 09-04-2021 COVID-19 original vaccine, age 12+ yr, monovalent (PFIZER-BIONTECH - MAURO TOP) Julio Draper MD Work Phone: [facility] Work Phone: 08-12-2021 influenza, high-dose , quadrivalent vaccine (FLUZONE HIGH DOSE QUADRIVALENT) Ev Hinkle APRN.CNP Work Phone: [facility] 08-12-2021 pneumococcal polysaccharide vaccine, 23 valent Ev Hinkle APRN.[facility] Work Phone: [facility] 10-06-2020 COVID-19 vaccine, ag e 12+ yr (PFIZER-BIONTECH - PURPLE TOP) Ev Hinkle APRN.[facility] Work Phone: [facility] Work Phone: 09-08-2020 COVID-19 vaccine, ag e 12+ yr (PFIZER-BIONTECH - PURPLE TOP) Ev Hinkle APRN.[facility] Work Phone: [facility] Work Phone: 04-01-2020 influenza, injectabl e, quadrivalent, contains preservative Ev Hinkle APRN.[facility] Work Phone: [facility] 07-06-2018 influenza, injectabl e, quadrivalent, contains preservative Ev Hinkle APRN.[facility] Work Phone: [facility] 04-17-2016 influenza, seasonal, injectable, preservative free Julio Draper MD Work Phone: [facility] Work Phone: 04-03-2016 influenza virus vacc ine, unspecified formulation Ev Hinkle APRN.[facility] Work Phone: [facility] Work Phone: 09-05-2015 pneumococcal polysaccharide vaccine, 23 valent Ev Hinkle APRN.[facility] Work Phone: [facility] 05-05-2015 influenza, seasonal, injectable, preservative free Julio Draper MD Work Phone: [facility] Work Phone: 04-21-2015 influenza, seasonal, injectable Ev Hinkle APRN.[facility] Work Phone: [facility] Work Phone: 05-04-2014 influenza, seasonal, injectable, preservative free Julio Draper MD Work Phone: [facility] Work Phone: 04-12-2014 tetanus toxoid, redu katie diphtheria toxoid, and acellular pertussis vaccine, adsorbed Ev Hinkle APRN.DIRECT SALES PROFESSIONAL Work Phone: [facility] Work Phone: 05-04-2013 influenza virus vacc ine, unspecified formulation Ev Hinkle APRN.DIRECT SALES PROFESSIONAL Work Phone: [facility] Payers Date Payer Category Payer Self-pay 2020 Unknown [facility] [id number] 2020-Present [phone] [address] [place] [address] PPO [id number] 2020 Unknown [facility] [employer] [id number] 2020-Present [phone] [address] [place] [address] PPO [id number] 2020 Unknown [id number] 1955 Unknown [id number] Social History Date Type Detail Facility Start: 09-08-2015 End: 05-25-2022 Tobacco smoking status NHIS Ex-smoker [facility] Work Phone: Start: 1973 End: 05-23-2016 History of tobacco use Current smoker [facility] Work Phone: Start: 1973 End: 05-23-2016 History of tobacco use Cigarette Smoker [facility] Work Phone: Start: 09-08-2015 End: 11-04-2022 Cigarettes smoked current (pack per day) - Reported 0.5 [facility] Start: 09-08-2015 End: 05-25-2022 Tobacco use and exposure Smokeless tobacco non-user [facility] Work Phone: Start: 10-14-2021 End: 03-03-2023 Alcohol intake Current non-drinker of alcohol (finding) [facility] Start: 11-12-2019 End: 11-04-2022 History SDOH Alcohol Frequency 1 [facility] Start: 11-12-2019 End: 11-04-2022 History SDOH Social Connections Phone 5 [facility] Start: 11-12-2019 End: 11-04-2022 History SDOH Social Connections Living 3 [facility] Start: 11-12-2019 End: 11-04-2022 History SDOH Physical Activity DPW 0 [facility] Start: 11-12-2019 End: 11-04-2022 History SDOH Stress 2 [facility] Start: 11-12-2019 End: 11-04-2022 History SDOH Financial 4 [facility] Start: 11-12-2019 Education 21 [facility] Start: 02-04-2020 End: 05-25-2022 Tobacco Comment Resumed short period. Quit for good 05/2016. [facility] Start: 1955 Sex Assigned At Female [facility] Start: 10-04-2021 End: 05-03-2022 Exposure to SARS-CoV-2 (event) Not sure [facility] Start: 11-04-2022 End: 11-05-2022 Social connection and isolation panel [facility] Do you belong to any clubs or organizations such as moravian groups, unions, fraternal or athletic groups, or school groups? Yes [facility] Are you now , , , , never or living with a partner? [facility] How often to you hav e a drink containing alcohol? Never [facility] How many standard dr inks containing alcohol do you have on a typical day? Patient does not drink [facility] How hard is it for y ou to pay for the very basics like food, housing, medical care, and heating Not very hard [facility] Do you feel stress - tense, restless, nervous, or anxious, or unable to sleep at night because your mind is troubled all the time - these days [OSQ] Only a little [facility] (I/We) worried whedeya er (my/our) food would run out before (I/we) got money to buy more. Never true [facility] In the past 12 month s, was there a time when you were not able to pay the mortgage or rent on time? No [facility] Start: 03-31-2020 Gender identity Identifies as female gender (finding) [facility] Start: 09-29-2020 Sexual orientation Heterosexual (finding) [facility] How many standard dr inks containing alcohol do you have on a typical day? 1 or 2 [facility] Clinical Notes 06-03-2016 to 06-30-2023 Telephone Encounter - Mere Soria MA - 06/17/2023 4:14 PM ESTTelephone Encounter - Julio Draper MD - 06/17/2023 4:11 PM Naye Siddiqi RT(R) - 05/25/2023 3:00 PM EST Note Date & Type Note Facility 06-30-2023 Note HNO ID: [id number] Author: Rosa Solano RT(R) Service: Radiology Author Type: Technologist Type: Progress Notes Filed: 06/30/2023 3:09 PM Note Text: Radiology Service Progress Note PATIENT NAME: Sneha Cardenas DATE OF SERVICE: June 30, 2023 TIME: 2:52 PM PATIENT IDENTITY VERIFICATION COMPLETED USING TWO (2) IDENTIFIERS: Name and Date of confirmed by patient verbally. FALL SCREENING: Has the patient had 2 falls in the last year or 1 fall with injury or currently using an Ambulatory Assistive Device (Walker, Cane, Wheelchair, Crutches, etc.)? Yes, Patient High Risk for Falls What interventions were put in place to prevent falls during this visit? Instructed Patient to Call for Help if Needed, Offered Assistance with Transfers/Clothing, and Increased Observations by Caregivers PATIENT GENDER DATA: Female. status: : No status: NO. PATIENT RELEVANT IMPLANT DATA REVIEWED: Yes RADIOLOGY DEPARTMENT: General X-ray: Exam(s) Completed: Chest X-Ray PERIPHERAL IV DATA: Not applicable SIGNED BY: RT [place](R) June 30, 2023 2:52 PM [facility] 06-30-2023 Note HNO ID: [id number] Author: Julio Draper MD Service: ? Author Type: Physician Type: Progress Notes Filed: 07/01/2023 6:22 PM Note Text: This note was created using NoteWriter. Subjective Patient presents with: Hospital F/U Sneha Cardenas is a 68 year old female here with spouse for hospitalizations. She was admitted 06/02-06/16 pneumonia with effusion, COPD exacerbation, sepsis, acute upper GI bleed, EGD with cautery of blood vessel in duodenal ulcer, paroxysmal atrial fibrillation, thoracentesis, urine retention, and physical debility. She passed out at home and found to have severe anemia and admitted 06/20-06/23 for bleeding ulcer, transfused, duodenal ulcers cauterized, COPD, chronic respiratory failure. Discharge Hgb 10.0. Home health was initiated, and PT planned. HH called 2 days ago about worsening dyspnea, but patient refused ER reevaluation. She was feeling better at this time. She had residual pain from the thoracentesis. Home Health Review of Systems Constitutional: Positive for fatigue. Negative for appetite change, chills, diaphoresis, fever and unexpected weight change. HENT: Negative for congestion, sore throat and trouble swallowing. Respiratory: Positive for shortness of breath. Negative for cough, chest tightness and wheezing. Cardiovascular: Negative for chest pain, palpitations and leg swelling. Gastrointestinal: Negative for abdominal pain, blood in stool, constipation, diarrhea, nausea and vomiting. Genitourinary: Negative for difficulty urinating and dyspareunia. Musculoskeletal: Positive for back pain. Skin: Negative for rash and wound. Neurological: Positive for weakness. Negative for dizziness, syncope, light-headedness and headaches. ACTIVE PROBLEM LIST Essential Tremor Upper GI Bleed Environmental Allergies Copd With Asthma Hyperlipidemia Age-Related Osteoporosis Without Current Pathological Fracture Hypoxemia Lung Nodule Seen On Imaging Study Elevated Blood Pressure Reading Chronic Respiratory Failure With Hypoxia (Hcc) Multiple Duodenal Ulcers Paroxysmal Atrial Fibrillation (Hcc) Parapneumonic Effusion PAST SURGICAL HISTORY Procedure Laterality Date ARTHROPLASTY TOTAL SHOULDER Right 02/2018 [facility]. Garo Stanford MD BREAST BIOPSY Left 30 yrs. COLONOSCOPY FLX DX W/COLLJ SPEC WHEN PFRMD 08/18/2012 normal colon - 10 year follow up COLONOSCOPY W/BIOPSY SINGLE/MULTIPLE 02/09/2010 lymphoid aggrigates at cecum, o/w normal EGD TRANSORAL BIOPSY SINGLE/MULTIPLE 02/09/2010 Gastritis/gastric ulcer/duodenitis EGD TRANSORAL BIOPSY SINGLE/MULTIPLE 08/18/2012 gastritis EGD WITH CONTROL OF BLEED, 06/09/2023 erosive esophagitis, gastric ulcers, duodenal ulcers EGD WITH CONTROL OF BLEED, 06/21/2023 duodenal ulcers LAPS SURG CHOLECYSTECTOMY W/CHOLANGIOGRAPHY 12/12/2007 Normal IOC PAST SURGICAL HISTORY OF multiple several tubal pregnancies, tubes both removed over several surgeries PAST SURGICAL HISTORY OF 1993 left inguinal hernia with mesh PAST SURGICAL HISTORY OF 1989 Hemorrhoid surgery x2 TONSILLECTOMY AND ADENOIDECTOMY Social History Tobacco Use Smoking status: Former Packs/day: 0.50 Years: 34.00 Additional pack years: 0.00 Total pack years: 17.00 Types: Cigarettes Start date: 1974 Quit date: 05/23/2016 Years since quittin.1 Smokeless tobacco: Never Tobacco comments: Resumed short period. Quit for good 05/2016. Vaping Use Vaping Use: Never used Substance Use Topics Alcohol use: No Drug use: No Current Outpatient Medications Medication Sig metoprolol tartrate, short acting, (LOPRESSOR) 25 mg tablet Take 25 mg by mouth two times a day. busPIRone (BUSPAR) 5 mg tablet Take 5 mg by mouth. two tablets twice daily pantoprazole DR (PROTONIX) 40 mg tablet Take 1 tablet by mouth every 12 hours. sucralfate (CARAFATE) 1 gram tablet TAKE 1 TABLET BY MOUTH THREE TIMES DAILY at 7 AM, 11 AM and 4 pm albuterol HFA (PROAIR HFA) 90 mcg/actuation inhaler Inhale 2 Puffs as instructed every 4 hours as needed. jywumnikehc-oqneuwbia-gqbghtop (TRELEGY ELLIPTA) 100-62.5-25 mcg inhalation powder Inhale 1 Puff as instructed once daily. montelukast (SINGULAIR) 10 mg tablet Take 1 tablet by mouth daily at bedtime. fluticasone (FLONASE) 50 mcg/actuation nasal spray Use 2 Sprays in each nostril once daily. Rinse mouth after use. Nebulizer Accessories misc 1 Each as needed. Needs nebulizer tubing and mouthpiece ipratropium-albuterol (DUONEB) 0.5 mg-3 mg(2.5 mg base)/3 mL nebu Inhale 3 mL as instructed every 4 hours as needed for wheezing/shortness of breath. No current facility-administered medications for this visit. Objective BP 134/72 Pulse 73 Resp 18 SpO2 94% Physical Exam Constitutional: General: She is not in acute distress. Appearance: She is not diaphoretic. HENT: Head: Normocephalic. Mouth/Throat: Mouth: Mucous membranes are m (more content not included)... [facility] 06-17-2023 Miscellaneous Notes Unable to reach [facility] nurse. Left message on identified VM. Mere Soria MA Okay. Nathaly calling from [facility] to report plan of care for patient and assisted will visit patient 2 times a week for 1 week starting next week and 1 time a week for 2 weeks. Nathaly also noted that while patient was in hospital patient was started on metoprolol, sucralfate, and Protonix. Patient has hospital follow up visit with provider on 06/23/2023. Please review and Advise, Genna Lowry RN documented in this encounter [facility] 06-16-2023 Miscellaneous Notes [facility] nurse notified. Mere Soria MA I'll follow. Bindu - [facility]- reports patient is discharging from [facility] today (dx: acute & chronic respiratory failure), with orders for [facility] SN, PT, OT. Start of care is tomorrow. Asking if pcp agreeable to follow for orders. Please phone Bindu with verbal: [phone] documented in this encounter [facility] 05-30-2023 Miscellaneous Notes Discussed results with patient. There is a new lung nodule in RLL. Will treat with Levaquin in hopes that it is infectious. Will obtain PET scan. Patient may need biopsy, which will be further discussed at upcoming appointment on 06/[address] Evangelista. Paulette Patient calling, verified / name, regarding recent CT scan done. Patient states she has been sick since last Tuesday with fever ( patient took ibuprofen which helped reduce fever), recently woke up with pain in right posterior side. Patient states pain is worse with inhale, rates 9/10. Patient would like to be advised if the results found on recent CT scan have anything to do with pain she is experiencing or could she maybe have pneumonia. Patient has an appointment with Dr. Draper on Tuesday, cannot wait that long due to severity of pain. Please advise patient at [phone] . Rekha Evangelista LPN documented in this encounter [facility] 05-25-2023 Note HNO ID: [id number] Author: Naye Caro, RT(R) Service: ? Author Type: Visual Stylist Type: Progress Notes Filed: 05/25/2023 3:29 PM Note Text: Radiology Service Progress Note PATIENT NAME: Sneha Cardenas DATE OF SERVICE: May 25, 2023 TIME: 3:29 PM PATIENT IDENTITY VERIFICATION COMPLETED USING TWO (2) IDENTIFIERS: Name and Date of confirmed by patient verbally. FALL SCREENING: Has the patient had 2 falls in the last year or 1 fall with injury or currently using an Ambulatory Assistive Device (Walker, Cane, Wheelchair, Crutches, etc.)? No PATIENT GENDER DATA: Female. status: : No status: NO. PATIENT RELEVANT IMPLANT DATA REVIEWED: Yes RADIOLOGY DEPARTMENT: CT; Exam(s) Completed: Chest PERIPHERAL IV DATA: Not applicable SIGNED BY: RT Burke(R) May 25, 2023 3:29 PM [facility] 05-25-2023 History of Presen t illness Narrative Radiology Service Progress Note PATIENT NAME: Sneha Cardenas DATE OF SERVICE: May 25, 2023 TIME: 3:29 PM PATIENT IDENTITY VERIFICATION COMPLETED USING TWO (2) IDENTIFIERS: Name and Date of confirmed by patient verbally. FALL SCREENING: Has the patient had 2 falls in the last year or 1 fall with injury or currently using an Ambulatory Assistive Device (Walker, Cane, Wheelchair, Crutches, etc.)? No PATIENT GENDER DATA: Female. status: : No status: NO. PATIENT RELEVANT IMPLANT DATA REVIEWED: Yes RADIOLOGY DEPARTMENT: CT; Exam(s) Completed: Chest PERIPHERAL IV DATA: Not applicable SIGNED BY: RT Burke(R) May 25, 2023 3:29 PM documented in this encounter [facility] 04-27-2023 Miscellaneous Notes Plan of Treatment faxed to [facility]. Naye Solorio LPN documented in this encounter [facility] 03-03-2023 Note HNO ID: [id number] Author: Jasmine Evangelista MD Service: ? Author Type: Physician Type: Progress Notes Filed: 03/03/2023 2:45 PM Note Text: . Respiratory Remer Note Patient name: Sneha Cardenas PCP: Julio Draper MD CC: Oxygen assessment HPI: Sneha Cardenas 67 year old female former < 20 pack year smoker with PMH significant for tremors, HTN, COVID PNA 04/2021, chronic hypoxemic respiratory failure, severe COPD/emphysema, GGO (due for chest CT in May. Patient just seen in clinic in December after hospital stay for PNA. No new problems since then. She presents today for visit due to desire to have a POC for ease of use of portable oxygen. Large tanks too heavy and small tanks do not last long. Patient tries to remain very active. Saturation 88% on RA today and 93% on 2 liters. DATA: Oximetry with Ambulation Test for This Encounter O2 Device O2 Adapter NC O2 Flow SpO2% HR Activity Ft Walked (ft) Time (min) Avg Speed (MPH) R/A 98 87 Resting R/A 87 109 Walking, usual pace 220 1.5 1.67 NC 2 98 89 Resting NC 2 98 107 Walking, usual pace 420 3 1.59 General Information Pulse Oximetry Site Total Time Spent O2 Supply Carrier Walking Assistance/Device Forehead 20 Trolley -- NAME: RANGEL Leone PATIENT NAME: Sneha Cardenas DATE: January 21, 2022 TIME: 3:19 PM DME: [facility] PAST MEDICAL HISTORY Diagnosis Date Asthma Benign essential tremor COPD (chronic obstructive pulmonary disease) ([facility]) 07/25/2012 FEV1 0.84L (32%), 10/18/2014 DDD (degenerative disc disease), cervical 08/15/2015 Environmental allergies Wheezes with hay or dust Essential and other specified forms of tremor 11/02/2007 Benign essential -- started primidone 06/03/09, Dr. Nguyễn History of colon polyps 2010 Tubular adenoma. Hypertension Hypoxemia 05/01/2021 Post Covid pneumonia. Irritable bowel syndrome Migraine headache Improved with primidone Pneumonia due to COVID-19 virus 05/01/2021 Scoliosis Snoring Tobacco use disorder Quit 03/04/2015. Unspecified gastritis and gastroduodenitis without mention of hemorrhage 02/09/2010 Small ulcer on EGD 2009 ALLERGIES Allergen Reactions Keflex [Cephalexin] Intolerance Tachycardia, palpitations. montelukast (SINGULAIR) 10 mg tablet Take 1 tablet by mouth daily at bedtime. kvpadiswbhz-sqhltrtnh-sonvspoy (TRELEGY ELLIPTA) 100-62.5-25 mcg inhalation powder Inhale 1 Puff as instructed once daily. albuterol HFA (PROAIR HFA) 90 mcg/actuation inhaler Inhale 2 Puffs as instructed every 4 hours as needed. fluticasone (FLONASE) 50 mcg/actuation nasal spray Use 2 Sprays in each nostril once daily. Rinse mouth after use. Nebulizer Accessories misc 1 Each as needed. Needs nebulizer tubing and mouthpiece ipratropium-albuterol (DUONEB) 0.5 mg-3 mg(2.5 mg base)/3 mL nebu Inhale 3 mL as instructed every 4 hours as needed for wheezing/shortness of breath. Social History Tobacco Use Smoking status: Former Packs/day: 0.50 Years: 34.00 Additional pack years: 0.00 Total pack years: 17.00 Types: Cigarettes Start date: 1974 Quit date: 05/23/2016 Years since quittin.7 Smokeless tobacco: Never Tobacco comments: Resumed short period. Quit for good 05/2016. Vaping Use Vaping Use: Never used Substance Use Topics Alcohol use: No Drug use: No FAMILY HISTORY Adopted: Yes Problem Relation Age of Onset Scoliosis Daughter Natural daughter. PAST SURGICAL HISTORY Procedure Laterality Date ARTHROPLASTY TOTAL SHOULDER Right 02/2018 [facility]. Garo Stanford MD BREAST BIOPSY Left 30 yrs. COLONOSCOPY FLX DX W/COLLJ SPEC WHEN PFRMD 08/18/2012 normal colon - 10 year follow up COLONOSCOPY W/BIOPSY SINGLE/MULTIPLE 02/09/2010 lymphoid aggrigates at cecum, o/w normal EGD TRANSORAL BIOPSY SINGLE/MULTIPLE 02/09/2010 Gastritis/gastric ulcer/duodenitis EGD TRANSORAL BIOPSY SINGLE/MULTIPLE 08/18/2012 gastritis LAPS SURG CHOLECYSTECTOMY W/CHOLANGIOGRAPHY 12/12/2007 Normal IOC PAST SURGICAL HISTORY OF multiple several tubal pregnancies, tubes both removed over several surgeries PAST SURGICAL HISTORY OF 1993 left inguinal hernia with mesh PAST SURGICAL HISTORY OF 1989 Hemorrhoid surgery x2 TONSILLECTOMY AND ADENOIDECTOMY PHYSICAL EXAMINATION: Pulse 73 Resp 15 Wt 152 lb (68.9kg) SpO2 88[Room Air]% General Appearance: Age appropriate, NAD. Skin: Skin color, texture, turgor normal, no suspicious rashes or lesions. Head: Normocephalic, no masses, lesions, tenderness or abnormalities. Lungs: Not labored, normal to percussion, very diminished breath sounds. No wheezes Heart: RRR, no murmur. Extremities: No edema, no clubbing. Assessment/Plan: Centrilobular emphysema -Continue triple inhaler therapy -Refilled script for albuterol Chronic hypoxemic respiratory failure -Qualifies for portable oxygen -[facility]more [facility] not included)... [facility] 03-03-2023 History of Presen t illness Narrative Images from the original note were not included. . Respiratory Remer Note Patient name: Sneha Cardenas PCP: Julio Draper MD CC: Oxygen assessment HPI: Sneha Cardenas 67 year old female former < 20 pack year smoker with PMH significant for tremors, HTN, COVID PNA 04/2021, chronic hypoxemic respiratory failure, severe COPD/emphysema, GGO (due for chest CT in May. Patient just seen in clinic in December after hospital stay for PNA. No new problems since then. She presents today for visit due to desire to have a POC for ease of use of portable oxygen. Large tanks too heavy and small tanks do not last long. Patient tries to remain very active. Saturation 88% on RA today and 93% on 2 liters. DATA: Oximetry with Ambulation Test for This Encounter O2 Device O2 Adapter NC O2 Flow SpO2% HR Activity Ft Walked (ft) Time (min) Avg Speed (MPH) R/A 98 87 Resting R/A 87 109 Walking, usual pace 220 1.5 1.67 NC 2 98 89 Resting NC 2 98 107 Walking, usual pace 420 3 1.59 General Information Pulse Oximetry Site Total Time Spent O2 Supply Carrier Walking Assistance/Device Forehead 20 Trolley -- NAME: RANGEL Leone PATIENT NAME: Sneha Cardenas DATE: January 21, 2022 TIME: 3:19 PM DME: [facility] PAST MEDICAL HISTORY Diagnosis Date Asthma Benign essential tremor COPD (chronic obstructive pulmonary disease) ([facility]) 07/25/2012 FEV1 0.84L (32%), 10/18/2014 DDD (degenerative disc disease), cervical 08/15/2015 Environmental allergies Wheezes with hay or dust Essential and other specified forms of tremor 11/02/2007 Benign essential -- started primidone 06/03/09, Dr. Nguyễn History of colon polyps 2010 Tubular adenoma. Hypertension Hypoxemia 05/01/2021 Post Covid pneumonia. Irritable bowel syndrome Migraine headache Improved with primidone Pneumonia due to COVID-19 virus 05/01/2021 Scoliosis Snoring Tobacco use disorder Quit 03/04/2015. Unspecified gastritis and gastroduodenitis without mention of hemorrhage 02/09/2010 Small ulcer on EGD 2009 ALLERGIES Allergen Reactions Keflex [Cephalexin] Intolerance Tachycardia, palpitations. montelukast (SINGULAIR) 10 mg tablet Take 1 tablet by mouth daily at bedtime. lerzbiicydb-zdrommkaf-cjfkmvub (TRELEGY ELLIPTA) 100-62.5-25 mcg inhalation powder Inhale 1 Puff as instructed once daily. albuterol HFA (PROAIR HFA) 90 mcg/actuation inhaler Inhale 2 Puffs as instructed every 4 hours as needed. fluticasone (FLONASE) 50 mcg/actuation nasal spray Use 2 Sprays in each nostril once daily. Rinse mouth after use. Nebulizer Accessories misc 1 Each as needed. Needs nebulizer tubing and mouthpiece ipratropium-albuterol (DUONEB) 0.5 mg-3 mg(2.5 mg base)/3 mL nebu Inhale 3 mL as instructed every 4 hours as needed for wheezing/shortness of breath. Social History Tobacco Use Smoking status: Former Packs/day: 0.50 Years: 34.00 Additional pack years: 0.00 Total pack years: 17.00 Types: Cigarettes Start date: 1974 Quit date: 05/23/2016 Years since quittin.7 Smokeless tobacco: Never Tobacco comments: Resumed short period. Quit for good 05/2016. Vaping Use Vaping Use: Never used Substance Use Topics Alcohol use: No Drug use: No FAMILY HISTORY Adopted: Yes Problem Relation Age of Onset Scoliosis Daughter Natural daughter. PAST SURGICAL HISTORY Procedure Laterality Date ARTHROPLASTY TOTAL SHOULDER Right 02/2018 [facility]. Garo Stanford MD BREAST BIOPSY Left 30 yrs. COLONOSCOPY FLX DX W/COLLJ SPEC WHEN PFRMD 08/18/2012 normal colon - 10 year follow up COLONOSCOPY W/BIOPSY SINGLE/MULTIPLE 02/09/2010 lymphoid aggrigates at cecum, o/w normal EGD TRANSORAL BIOPSY SINGLE/MULTIPLE 02/09/2010 Gastritis/gastric ulcer/duodenitis EGD TRANSORAL BIOPSY SINGLE/MULTIPLE 08/18/2012 gastritis LAPS SURG CHOLECYSTECTOMY W/CHOLANGIOGRAPHY 12/12/2007 Normal IOC PAST SURGICAL HISTORY OF multiple several tubal pregnancies, tubes both removed over several surgeries PAST SURGICAL HISTORY OF 1993 left inguinal hernia with mesh PAST SURGICAL HISTORY OF 1989 Hemorrhoid surgery x2 TONSILLECTOMY & ADENOIDECTOMY <AGE 13 PHYSICAL EXAMINATION: Pulse 73 Resp 15 Wt 152 lb (68.9kg) SpO2 88[Room Air]% General Appearance: Age appropriate, NAD. Skin: Skin color, texture, turgor normal, no suspicious rashes or lesions. Head: Normocephalic, no masses, lesions, tenderness or abnormalities. Lungs: Not labored, normal to percussion, very diminished breath sounds. No wheezes Heart: RRR, no murmur. Extremities: No edema, no clubbing. Assessment/Plan: Centrilobular emphysema -Continue triple inhaler therapy -Refilled script for albuterol Chronic hypoxemic respiratory failure -Qualifies for portable oxygen -Resend prescription to [facility] Former smoker -Former less than 20 pack year smoker with severe COPD/emphysema -Due for chest CT in May Jasmine Evangelista MD Respiratory Remer documented in this encounter [facility] 02-22-2023 Miscellaneous Notes Faxed. Abimbola Lewis LPN [facility] called requesting orders for POC and last office visit notes to be faxed. She states she talked to somebody last week but I see no documentation. Thanks Luna Mariano MA documented in this encounter [facility] 02-15-2023 Note HNO ID: [id number] Author: Jasmine Evangelista MD Service: ? Author Type: Physician Type: Progress Notes Filed: 02/15/2023 2:36 PM Note Text: Needs portable oxygen [facility] 02-15-2023 History of Presen t illness Narrative Needs portable oxygen documented in this encounter [facility] 01-18-2023 Miscellaneous Notes Patient has been identified by name and date of : Yes, Patient phones for refill(s): Requested Prescriptions Pending Prescriptions Disp Refills albuterol HFA (PROAIR HFA) 90 mcg/actuation inhaler 36 g 0 Sig: Inhale 2 Puffs as instructed every 4 hours as needed. Date of last office visit in primary care: 01/07/2023 6 month follow-up: 05/03/2023 Last 2 Encounter Wt Readings: Date: Wt: 01/07/2023 71.2 kg (157 lb) 12/13/2022 71.2 kg (157 lb) Previous labs/tests for medication: Not applicable Please advise. Thank you. Anushka Alexis LPN Pharmacy verified in [facility] Patient has been identified by name and date of : Yes Patient requesting a call when RX is approved and sent to the pharmacy. Please call patient at: [phone] Patient phones for refill(s): Requested Prescriptions Pending Prescriptions Disp Refills albuterol HFA (PROAIR HFA) 90 mcg/actuation inhaler 36 g 0 Sig: Inhale 2 Puffs as instructed every 4 hours as needed. Date of last office visit : 01/07/2023 Date of next office visit : 05/03/2023 Last 2 Encounter Wt Readings: Date: Wt: 01/07/2023 71.2 kg (157 lb) 12/13/2022 71.2 kg (157 lb) Not applicable Please advise. Luna Pichardo documented in this encounter [facility] 01-07-2023 Note HNO ID: [id number] Author: Julio Draper MD Service: ? Author Type: Physician Type: Progress Notes Filed: 01/07/2023 11:18 PM Note Text: This note was created using NoteWriter. Subjective Sneha Cardenas is a 67 year old female. She recovered from pneumonia but still felt significant dyspnea on exertion. She was using her oxygen at 2 LPM via NC, and taking her medications. Her O2 saturation at home dropped to the upper 80s at times. Review of Systems Constitutional: Negative for chills, diaphoresis and fever. HENT: Negative. Respiratory: Positive for shortness of breath. Negative for cough and wheezing. Cardiovascular: Negative for chest pain, palpitations and leg swelling. Gastrointestinal: Negative for abdominal pain, diarrhea, nausea and vomiting. ACTIVE PROBLEM LIST Essential Tremor Environmental Allergies Copd With Asthma (Hcc) Hyperlipidemia Age-Related Osteoporosis Without Current Pathological Fracture Hypoxemia Lung Nodule Seen On Imaging Study Elevated Blood Pressure Reading Chronic Respiratory Failure With Hypoxia (Hcc) Social History Tobacco Use Smoking status: Former Packs/day: 0.50 Years: 34.00 Pack years: 17.00 Types: Cigarettes Start date: 1974 Quit date: 05/23/2016 Years since quittin.6 Smokeless tobacco: Never Tobacco comments: Resumed short period. Quit for good 05/2016. Vaping Use Vaping Use: Never used Substance Use Topics Alcohol use: No Drug use: No Current Outpatient Medications Medication Sig fluticasone (FLONASE) 50 mcg/actuation nasal spray Use 2 Sprays in each nostril once daily. Rinse mouth after use. Nebulizer Accessories misc 1 Each as needed. Needs nebulizer tubing and mouthpiece albuterol HFA (PROAIR HFA) 90 mcg/actuation inhaler Inhale 2 Puffs as instructed every 4 hours as needed. montelukast (SINGULAIR) 10 mg tablet Take 1 tablet by mouth daily at bedtime. bmhmyywlxla-qnjdeonis-varvxdlj (TRELEGY ELLIPTA) 100-62.5-25 mcg inhalation powder Inhale 1 Puff as instructed once daily. ipratropium-albuterol (DUONEB) 0.5 mg-3 mg(2.5 mg base)/3 mL nebu Inhale 3 mL as instructed every 4 hours as needed for wheezing/shortness of breath. No current facility-administered medications for this visit. Objective BP 133/70 Pulse 91 Temp 36.6 ?C (97.8 ?F) (Temporal) Resp 22 Wt 71.2 kg (157 lb) SpO2 94% BMI (P) 26.95 kg/m? Physical Exam Constitutional: General: She is not in acute distress. Appearance: She is not ill-appearing. Cardiovascular: Rate and Rhythm: Normal rate and regular rhythm. Heart sounds: No murmur heard. No gallop. Pulmonary: Effort: Pulmonary effort is normal. Breath sounds: No stridor. Examination of the right-lower field reveals rales. Decreased breath sounds and rales present. No wheezing or rhonchi. Musculoskeletal: Right lower leg: No edema. Left lower leg: No edema. Neurological: General: No focal deficit present. Mental Status: She is alert. Gait: Gait normal. O2 sat on O2 via NC at rest 92%; with ambulation 92%; post ambulation 94%. CXR result reviewed. Assessment and Plan 1. Chronic respiratory failure with hypoxia (HCC) - ICD9: 518.83, 799.02, ICD10: J96.11 (primary diagnosis) If O2 sat dropping, increase O2 to 3 LPM until symptoms back to baseline. Then resume 2 LPM. 2. COPD with asthma (HCC) - ICD9: 493.20, ICD10: J44.9 Stable. - Continue current medications 3. Environmental allergies - ICD9: V15.09, ICD10: Z91.09 Refilled. - MONTELUKAST 10 MG TABLET Julio Draper MD [facility] 01-07-2023 Note HNO ID: [id number] Author: Rosa Solano RT(R) Service: Radiology Author Type: Technologist Type: Progress Notes Filed: 01/07/2023 3:14 PM Note Text: Radiology Service Progress Note PATIENT NAME: Sneha Cardenas DATE OF SERVICE: January 07, 2023 TIME: 3:04 PM PATIENT IDENTITY VERIFICATION COMPLETED USING TWO (2) IDENTIFIERS: Name and Date of confirmed by patient verbally. FALL SCREENING: Has the patient had 2 falls in the last year or 1 fall with injury or currently using an Ambulatory Assistive Device (Walker, Cane, Wheelchair, Crutches, etc.)? No PATIENT GENDER DATA: Female. status: : No status: NO. PATIENT RELEVANT IMPLANT DATA REVIEWED: Yes RADIOLOGY DEPARTMENT: General X-ray: Exam(s) Completed: Chest X-Ray PERIPHERAL IV DATA: Not applicable SIGNED BY: Rosa Solano RT(R) January 07, 2023 3:04 PM [facility] 01-07-2023 Instructions Julio Draper MD - 01/07/2023 4:34 PM EDT Try increasing oxygen by 1 LPM if level drops during physical activity. documented in this encounter [facility] 01-07-2023 History of Presen t illness Narrative This note was created using [employer]. Subjective Sneha Cardenas is a 67 year old female. She recovered from pneumonia but still felt significant dyspnea on exertion. She was using her oxygen at 2 LPM via NC, and taking her medications. Her O2 saturation at home dropped to the upper 80s at times. Review of Systems Constitutional: Negative for chills, diaphoresis and fever. HENT: Negative. Respiratory: Positive for shortness of breath. Negative for cough and wheezing. Cardiovascular: Negative for chest pain, palpitations and leg swelling. Gastrointestinal: Negative for abdominal pain, diarrhea, nausea and vomiting. ACTIVE PROBLEM LIST Essential Tremor Environmental Allergies Copd With Asthma (Hcc) Hyperlipidemia Age-Related Osteoporosis Without Current Pathological Fracture Hypoxemia Lung Nodule Seen On Imaging Study Elevated Blood Pressure Reading Chronic Respiratory Failure With Hypoxia (Hcc) Social History Tobacco Use Smoking status: Former Packs/day: 0.50 Years: 34.00 Pack years: 17.00 Types: Cigarettes Start date: 1974 Quit date: 05/23/2016 Years since quittin.6 Smokeless tobacco: Never Tobacco comments: Resumed short period. Quit for good 05/2016. Vaping Use Vaping Use: Never used Substance Use Topics Alcohol use: No Drug use: No Current Outpatient Medications Medication Sig fluticasone (FLONASE) 50 mcg/actuation nasal spray Use 2 Sprays in each nostril once daily. Rinse mouth after use. Nebulizer Accessories misc 1 Each as needed. Needs nebulizer tubing and mouthpiece albuterol HFA (PROAIR HFA) 90 mcg/actuation inhaler Inhale 2 Puffs as instructed every 4 hours as needed. montelukast (SINGULAIR) 10 mg tablet Take 1 tablet by mouth daily at bedtime. cwovmjgrcmf-dhcqvymuw-tasavvcd (TRELEGY ELLIPTA) 100-62.5-25 mcg inhalation powder Inhale 1 Puff as instructed once daily. ipratropium-albuterol (DUONEB) 0.5 mg-3 mg(2.5 mg base)/3 mL nebu Inhale 3 mL as instructed every 4 hours as needed for wheezing/shortness of breath. No current facility-administered medications for this visit. Objective BP 133/70 Pulse 91 Temp 36.6 C (97.8 F) (Temporal) Resp 22 Wt 71.2 kg (157 lb) SpO2 94% BMI (P) 26.95 kg/m Physical Exam Constitutional: General: She is not in acute distress. Appearance: She is not ill-appearing. Cardiovascular: Rate and Rhythm: Normal rate and regular rhythm. Heart sounds: No murmur heard. No gallop. Pulmonary: Effort: Pulmonary effort is normal. Breath sounds: No stridor. Examination of the right-lower field reveals rales. Decreased breath sounds and rales present. No wheezing or rhonchi. Musculoskeletal: Right lower leg: No edema. Left lower leg: No edema. Neurological: General: No focal deficit present. Mental Status: She is alert. Gait: Gait normal. O2 sat on O2 via NC at rest 92%; with ambulation 92%; post ambulation 94%. CXR result reviewed. Assessment and Plan 1. Chronic respiratory failure with hypoxia (HCC) - ICD9: 518.83, 799.02, ICD10: J96.11 (primary diagnosis) If O2 sat dropping, increase O2 to 3 LPM until symptoms back to baseline. Then resume 2 LPM. 2. COPD with asthma (HCC) - ICD9: 493.20, ICD10: J44.9 Stable. - Continue current medications 3. Environmental allergies - ICD9: V15.09, ICD10: Z91.09 Refilled. - MONTELUKAST 10 MG TABLET Julio Draper MD documented in this encounter [facility] 12-14-2022 Note HNO ID: [id number] Author: Julio Draper MD Service: ? Author Type: Physician Type: Progress Notes Filed: 12/14/2022 9:02 PM Note Text: This note was created using [employer]. Subjective Transitional Care Management Progress Note The patients TCM visit was performed within the 14 days of discharge. Patient's Date of discharge: 12/03/2022 Date of initial coordinator contact after discharge: 12/06/2022 Discharge diagnosis: community acquired pneumonia, leukocytosis, azotemia, hyperglycemia. Medication review completed Yes Julio Draper MD Provider Documentation: In follow-up of hospitalization, Sneha Cardenas is a 67 year old female with the chief complaint of transition of care. I have reviewed the patient?s last hospital course including diagnostic testing performed during this hospitalization, their discharge medications, and my assessment and plan with the patient and any family members present at today?s visit. Sneha presented on 11/30/22 with cough, dyspnea, and fever. She was admitted and treated for pneumonia, LLL; COPD exacerbation, and lab abnormalities mentioned. She was discharged on levofloxacin 750 mg daily x 7 days, and prednisone 20 mg BID x 7 days with improvement. However, symptoms started again this weekend a few days after she finished treatment. She was seen by pulmonary last week, and plan was to continue current management and repeat CXR next month. Her oxygen requirements appeared to be stable. Review of Systems Constitutional: Positive for appetite change and fever. Negative for chills, diaphoresis and unexpected weight change. HENT: Negative for congestion, sinus pain and sore throat. Cardiovascular: Negative for chest pain, palpitations and leg swelling. Gastrointestinal: Negative for abdominal pain, diarrhea, nausea and vomiting. Genitourinary: Negative for dysuria. Musculoskeletal: Negative. Negative for arthralgias. Neurological: Negative for dizziness and headaches. Objective BP 130/70 (BP Site: Left Arm, BP Position: Sitting, BP Cuff Size: Large Adult) Pulse 100 Temp 37.8 ?C (100 ?F) (Temporal) Resp 18 Wt 71.2 kg (157 lb) SpO2 91% BMI (P) 26.95 kg/m? Physical Exam Constitutional: General: She is in acute distress. Appearance: She is not diaphoretic. HENT: Head: Normocephalic. Nose: No congestion or rhinorrhea. Mouth/Throat: Mouth: Mucous membranes are moist. Pharynx: Oropharynx is clear. Cardiovascular: Rate and Rhythm: Regular rhythm. Tachycardia present. Heart sounds: No murmur heard. No gallop. Pulmonary: Breath sounds: Decreased air movement present. Examination of the left-lower field reveals rhonchi and rales. Wheezing, rhonchi and rales present. Comments: On Portable O2 2 LPM. Musculoskeletal: Right lower leg: No edema. Left lower leg: No edema. Neurological: General: No focal deficit present. Mental Status: She is alert. Assessment and Plan 1. COPD with asthma (HCC) - ICD9: 493.20, ICD10: J44.9 (primary diagnosis) - Exacerbation. - Continue current medications. - Advised ER if worse. - CLARITHROMYCIN 500 MG TABLET - PREDNISONE 10 MG TABLET Discussed medication dosage, usage, goals of therapy, and side effects. 2. Community acquired pneumonia of left lung, unspecified part of lung - ICD9: 486, ICD10: J18.9 See above. - CLARITHROMYCIN 500 MG TABLET - PREDNISONE 10 MG TABLET 3. Chronic respiratory failure with hypoxia (HCC) - ICD9: 518.83, 799.02, ICD10: J96.11 See above. - CLARITHROMYCIN 500 MG TABLET - PREDNISONE 10 MG TABLET Julio Draper MD [facility] 12-10-2022 Note HNO ID: [id number] Author: Jasmine Evangelista MD Service: ? Author Type: Physician Type: Progress Notes Filed: 12/10/2022 4:31 PM Note Text: . Respiratory Remer Note Patient name: Sneha Cardenas PCP: Julio Draper MD CC: Hospital follow-up HPI: Sneha Cardenas 67 year old female former < 20 pack year smoker with PMH significant for tremor, HTN, COVID PNA 04/2021, chronic hypoxemic respiratory failure, severe COPD/emphysema who presents for follow-up. Current therapy with Trelegy Ellipta. Chest CT pertinent for nodules and previous GGO (due for CT in May). No evidence of alpha-1 antitrypsin deficiency. Patient was recently admitted to [facility] with pneumonia. She had fevers, pleuritic chest pain, chest congestion but inability to cough up any phlegm. Chest x-ray showed left lower lobe infiltrate with associated leukocytosis. She was treated with nebulizers, IV antibiotics and IV steroids. Just recently completed 7-day course of oral steroids and antibiotics. She has had some diarrhea related to antibiotic usage. She has resolution of her chest pain and cough. She still is somewhat fatigued. No further fevers. DATA: Labs: Component Ref Range AND Units 6 mo ago Alpha 1 Antitrypsin 90 - 200 mg/dL 158 Imaging / Diagnostic Studies: Reviewed CXR from [facility] which shows cardiomegaly and a left lower lobe infiltrate PAST MEDICAL HISTORY Diagnosis Date Asthma Benign essential tremor COPD (chronic obstructive pulmonary disease) ([facility]) 07/25/2012 FEV1 0.84L (32%), 10/18/2014 DDD (degenerative disc disease), cervical 08/15/2015 Environmental allergies Wheezes with hay or dust Essential and other specified forms of tremor 11/02/2007 Benign essential -- started primidone 06/03/09, Dr. Nguyễn History of colon polyps 2010 Tubular adenoma. Hypertension Hypoxemia 05/01/2021 Post Covid pneumonia. Irritable bowel syndrome Migraine headache Improved with primidone Pneumonia due to COVID-19 virus 05/01/2021 Scoliosis Snoring Tobacco use disorder Quit 03/04/2015. Unspecified gastritis and gastroduodenitis without mention of hemorrhage 02/09/2010 Small ulcer on EGD 2009 ALLERGIES Allergen Reactions Keflex [Cephalexin] Intolerance Tachycardia, palpitations. albuterol HFA (PROAIR HFA) 90 mcg/actuation inhaler Inhale 2 Puffs as instructed every 4 hours as needed. montelukast (SINGULAIR) 10 mg tablet Take 1 tablet by mouth daily at bedtime. pdrdrbpawlu-hssvvpmbt-ybdakygy (TRELEGY ELLIPTA) 100-62.5-25 mcg inhalation powder Inhale 1 Puff as instructed once daily. ipratropium-albuterol (DUONEB) 0.5 mg-3 mg(2.5 mg base)/3 mL nebu Inhale 3 mL as instructed every 4 hours as needed for wheezing/shortness of breath. fluticasone (FLONASE) 50 mcg/actuation nasal spray Use 2 Sprays in each nostril once daily. Rinse mouth after use. Nebulizer Accessories misc 1 Each as needed. Needs nebulizer tubing and mouthpiece guaiFENesin (MUCINEX) 600 mg 12 hr tablet Take 2 tablets by mouth twice daily. Social History Tobacco Use Smoking status: Former Packs/day: 0.50 Years: 34.00 Pack years: 17.00 Types: Cigarettes Start date: 1974 Quit date: 05/23/2016 Years since quittin.5 Smokeless tobacco: Never Tobacco comments: Resumed short period. Quit for good 05/2016. Vaping Use Vaping Use: Never used Substance Use Topics Alcohol use: No Drug use: No PMH, Social history, family history and surgical history reviewed and updated in EMR REVIEW OF SYSTEMS: CONSTITUTIONAL: No fevers, chills, nightsweats, unintended weight loss. Fatigue HEENT: Denies nasal congestion/sinus symptoms CARDIOVASCULAR: No chest pain, palpitations, orthopnea, PND, edema. PULM: See HPI GI: No abdominal pain. No nausea. Loose stools INTEGUMENTARY: No new skin changes or rashes PHYSICAL EXAMINATION: BP 132/76 Pulse 94 Resp 18 Wt 154 lb (69.9kg) SpO2 94% on oxygen General Appearance: age appropriate, NAD Skin: Skin color, texture, turgor normal, no suspicious rashes or lesions. Head: Normocephalic, no masses, lesions, tenderness or abnormalities. Eyes: Sclera, conjunctiva normal Oropharynx: Poor dentition, torus, no thrush. Neck: No JVD, no masses, no adenopathy. Lungs: Not labored, normal to percussion, diminished breath sounds. Wheezy cough. Heart: RRR, no murmur. Extremities: No edema, no clubbing. Assessment/Plan: LLL PNA -Just completed antibiotics and steroids -Follow-up chest x-ray 4 weeks Severe COPD -No need for further steroid course -Continue Trelegy Ellipta -Continue scheduled DuoNeb for now Chronic hypoxemic respiratory failure -Patient is compliant with and benefits from some oxygen -No requirement for increase in her liter flow Jasmine Evangelista MD Respiratory Remer [facility] 12-10-2022 History of Presen t illness Narrative Images from the original note were not included. . Respiratory Remer Note Patient name: Sneha Cardenas PCP: Julio Draper MD CC: Hospital follow-up HPI: Sneha Cardenas 67 year old female former < 20 pack year smoker with PMH significant for tremor, HTN, COVID PNA 04/2021, chronic hypoxemic respiratory failure, severe COPD/emphysema who presents for follow-up. Current therapy with Trelegy Ellipta. Chest CT pertinent for nodules and previous GGO (due for CT in May). No evidence of alpha-1 antitrypsin deficiency. Patient was recently admitted to [facility] with pneumonia. She had fevers, pleuritic chest pain, chest congestion but inability to cough up any phlegm. Chest x-ray showed left lower lobe infiltrate with associated leukocytosis. She was treated with nebulizers, IV antibiotics and IV steroids. Just recently completed 7-day course of oral steroids and antibiotics. She has had some diarrhea related to antibiotic usage. She has resolution of her chest pain and cough. She still is somewhat fatigued. No further fevers. DATA: Labs: Component Ref Range & Units 6 mo ago Alpha 1 Antitrypsin 90 - 200 mg/dL 158 Imaging / Diagnostic Studies: Reviewed CXR from [facility] which shows cardiomegaly and a left lower lobe infiltrate PAST MEDICAL HISTORY Diagnosis Date Asthma Benign essential tremor COPD (chronic obstructive pulmonary disease) (HCC) 07/25/2012 FEV1 0.84L (32%), 10/18/2014 DDD (degenerative disc disease), cervical 08/15/2015 Environmental allergies Wheezes with hay or dust Essential and other specified forms of tremor 11/02/2007 Benign essential -- started primidone 06/03/09, Dr. Nguyễn History of colon polyps 2010 Tubular adenoma. Hypertension Hypoxemia 05/01/2021 Post Covid pneumonia. Irritable bowel syndrome Migraine headache Improved with primidone Pneumonia due to COVID-19 virus 05/01/2021 Scoliosis Snoring Tobacco use disorder Quit 03/04/2015. Unspecified gastritis and gastroduodenitis without mention of hemorrhage 02/09/2010 Small ulcer on EGD 2009 ALLERGIES Allergen Reactions Keflex [Cephalexin] Intolerance Tachycardia, palpitations. albuterol HFA (PROAIR HFA) 90 mcg/actuation inhaler Inhale 2 Puffs as instructed every 4 hours as needed. montelukast (SINGULAIR) 10 mg tablet Take 1 tablet by mouth daily at bedtime. etiyxbslzkf-qmgsmytug-ikblctjo (TRELEGY ELLIPTA) 100-62.5-25 mcg inhalation powder Inhale 1 Puff as instructed once daily. ipratropium-albuterol (DUONEB) 0.5 mg-3 mg(2.5 mg base)/3 mL nebu Inhale 3 mL as instructed every 4 hours as needed for wheezing/shortness of breath. fluticasone (FLONASE) 50 mcg/actuation nasal spray Use 2 Sprays in each nostril once daily. Rinse mouth after use. Nebulizer Accessories misc 1 Each as needed. Needs nebulizer tubing and mouthpiece guaiFENesin (MUCINEX) 600 mg 12 hr tablet Take 2 tablets by mouth twice daily. Social History Tobacco Use Smoking status: Former Packs/day: 0.50 Years: 34.00 Pack years: 17.00 Types: Cigarettes Start date: 1974 Quit date: 05/23/2016 Years since quittin.5 Smokeless tobacco: Never Tobacco comments: Resumed short period. Quit for good 05/2016. Vaping Use Vaping Use: Never used Substance Use Topics Alcohol use: No Drug use: No PMH, Social history, family history and surgical history reviewed and updated in EMR REVIEW OF SYSTEMS: CONSTITUTIONAL: No fevers, chills, nightsweats, unintended weight loss. Fatigue HEENT: Denies nasal congestion/sinus symptoms CARDIOVASCULAR: No chest pain, palpitations, orthopnea, PND, edema. PULM: See HPI GI: No abdominal pain. No nausea. Loose stools INTEGUMENTARY: No new skin changes or rashes PHYSICAL EXAMINATION: BP 132/76 Pulse 94 Resp 18 Wt 154 lb (69.9kg) SpO2 94% on oxygen General Appearance: age appropriate, NAD Skin: Skin color, texture, turgor normal, no suspicious rashes or lesions. Head: Normocephalic, no masses, lesions, tenderness or abnormalities. Eyes: Sclera, conjunctiva normal Oropharynx: Poor dentition, torus, no thrush. Neck: No JVD, no masses, no adenopathy. Lungs: Not labored, normal to percussion, diminished breath sounds. Wheezy cough. Heart: RRR, no murmur. Extremities: No edema, no clubbing. Assessment/Plan: LLL PNA -Just completed antibiotics and steroids -Follow-up chest x-ray 4 weeks Severe COPD -No need for further steroid course -Continue Trelegy Ellipta -Continue scheduled DuoNeb for now Chronic hypoxemic respiratory failure -Patient is compliant with and benefits from some oxygen -No requirement for increase in her liter flow Jasmine Evangelista MD Respiratory Remer documented in this encounter [facility] 12-07-2022 Miscellaneous Notes Detailed message left for patient. She should keep appt on 12/10 for DC follow up. Abimbola Lewis LPN Pt had a recent hospital stay for pneumonia d/c 12/03/22 [facility]. She was wondering if her appt on 12/10/22 would be necessary or would Dr. Evangelista want to see her. documented in this encounter [facility] 12-06-2022 Note Patient Outreach (IN TMWS) SNEHA CARDENAS ([id number]) 1955 F Date Time Provider Department 12/06/22 JULIO DRAPER INTMIKEY During your visit today, we recorded the following information about you: Ericka Christopher LPN 12/06/2022 11:11 AM Signed TRANSITION CARE MANAGEMENT (TCM) INITIAL CONTACT Sleep Technician Outreach Provider Action/FYI: TCM Initial contact with patient post discharge, spoke to patient. Patient identified by name and . TRANSITION CARE MANAGEMENT INITIAL OUTREACH DOCUMENTATION: Date of Outreach: 12/06/2022 Outreach Attempt 1: Contact Made Date of Discharge 12/03/2022 Some recent data might be hidden SUMMARY: -Pt discharged from [facility] on 12/03/22. -Admitted for: LLL pneumonia Do you have a hospital follow up appointment with your PCP? Appointment on 12/13/22 with pcp. Yes. Remind patient of appointment date, time, and location. If not within 14 calendar days of discharge - please reschedule accordingly. MEDICATIONS: Many patients have questions or concerns about their medications once they are home. Were you prescribed any new medications? If yes, what are those medications? Levofloxacin 750 mg one daily #7 Prednisone 20 mg daily #14 Were you told to hold any medications? No Were any of your medications discontinued? No Do you have any questions about getting or taking your medications? No Your discharge instructions/After visit Summary (AVS) are important in guiding you through the recovery process. Is there anything I might help you understand? No Do you have all the necessary equipment and supplies at home? Yes Medical records from recent hospitalization: Placed for provider to review Pt has routine appt 12/10/22 with pulmonology. Allergies As of Date: 12/06/2022 Noted Allergy Reaction KEFLEX (CEPHALEXIN) 10/04/2005 5 - Intolerance Comments: Tachycardia, palpitations. Date Reviewed: 11/15/2022 Reviewed by: Tasha Walkre APRN.DIRECT SALES PROFESSIONAL - Fully Assessed Reason for Visit: Transition Of Care [7874] Prescriptions as of 12/06/2022 - fluticasone (FLONASE) 50 mcg/actuation nasal spray Use 2 Sprays in each nostril once daily. Rinse mouth after use. - Nebulizer Accessories misc 1 Each as needed. Needs nebulizer tubing and mouthpiece - guaiFENesin (MUCINEX) 600 mg 12 hr tablet Take 2 tablets by mouth twice daily. - albuterol HFA (PROAIR HFA) 90 mcg/actuation inhaler Inhale 2 Puffs as instructed every 4 hours as needed. - montelukast (SINGULAIR) 10 mg tablet Take 1 tablet by mouth daily at bedtime. - rbotzfpctrc-wamliekir-yrkgnppx (TRELEGY ELLIPTA) 100-62.5-25 mcg inhalation powder Inhale 1 Puff as instructed once daily. - ipratropium-albuterol (DUONEB) 0.5 mg-3 mg(2.5 mg base)/3 mL nebu Inhale 3 mL as instructed every 4 hours as needed for wheezing/shortness of breath. Problem List As Of Date 12/06/2022 Noted Resolved Tobacco use disorder [F17.200] 11/02/2007 02/10/2017 Essential tremor [G25.0] 11/02/2007 Other specified disorder of gallbladder [K82.8] 12/11/2007 07/20/2012 Unspecified gastritis and gastroduodenitis with*02/09/2010 07/15/2015 Blood in stool [K92.1] 02/09/2010 07/20/2012 Loss of weight [R63.4] 02/09/2010 07/20/2012 Hemorrhage of gastrointestinal tract, unspecifi*02/09/2010 07/15/2015 Acute gastritis without mention of hemorrhage [*02/09/2010 07/20/2012 Essential hypertension, benign [I10] 05/17/2011 07/15/2015 Migraine headache [G43.909] 07/15/2015 Irritable bowel syndrome [K58.9] 07/15/2015 Scoliosis [M41.9] 02/10/2017 Environmental allergies [Z91.09] History of colon polyps [Z86.010] 07/15/2015 COPD with asthma (HCC) [J44.9] 07/25/2012 Cervical disc disorder with radiculopathy [M50.*08/15/2015 02/10/2017 DDD (degenerative disc disease), cervical [M50.*08/15/2015 02/10/2017 Essential hypertension, benign [I10] 06/03/2016 08/29/2017 Asthma [J45.909] 02/15/2019 Hyperlipidemia [E78.5] 02/15/2019 Age-related osteoporosis without current pathol*08/28/2021 Hypoxemia [R09.02] 05/01/2021 Lung nodule seen on imaging study [R91.1] 05/12/2021 Elevated blood pressure reading [R03.0] 05/03/2022 Chronic respiratory failure with hypoxia (HCC) *11/05/2022 Encounter Status:Closed by ERICKA CHRISTOPHER LPN on 12/06/22 [facility] 12-06-2022 Note HNO ID: [id number] Author: Ericka Christopher LPN Service: ? Author Type: ? Type: Progress Notes Filed: 12/06/2022 11:11 AM Note Text: TRANSITION CARE MANAGEMENT (TCM) INITIAL CONTACT Sleep Technician Outreach Provider Action/FYI: TCM Initial contact with patient post discharge, spoke to patient. Patient identified by name and . TRANSITION CARE MANAGEMENT INITIAL OUTREACH DOCUMENTATION: Date of Outreach: 12/06/2022 Outreach Attempt 1: Contact Made Date of Discharge 12/03/2022 Some recent data might be hidden SUMMARY: -Pt discharged from [facility] on 12/03/22. -Admitted for: LLL pneumonia Do you have a hospital follow up appointment with your PCP? Appointment on 12/13/22 with pcp. Yes. Remind patient of appointment date, time, and location. If not within 14 calendar days of discharge - please reschedule accordingly. MEDICATIONS: Many patients have questions or concerns about their medications once they are home. Were you prescribed any new medications? If yes, what are those medications? Levofloxacin 750 mg one daily #7 Prednisone 20 mg daily #14 Were you told to hold any medications? No Were any of your medications discontinued? No Do you have any questions about getting or taking your medications? No Your discharge instructions/After visit Summary (AVS) are important in guiding you through the recovery process. Is there anything I might help you understand? No Do you have all the necessary equipment and supplies at home? Yes Medical records from recent hospitalization: Placed for provider to review Pt has routine appt 12/10/22 with pulmonology. [facility] 12-06-2022 History of Presen t illness Narrative TRANSITION CARE MANAGEMENT (TCM) INITIAL CONTACT Sleep Technician Outreach Provider Action/FYI: TCM Initial contact with patient post discharge, spoke to patient. Patient identified by name and . TRANSITION CARE MANAGEMENT INITIAL OUTREACH DOCUMENTATION: Date of Outreach: 12/06/2022 Outreach Attempt 1: Contact Made Date of Discharge 12/03/2022 Some recent data might be hidden SUMMARY: -Pt discharged from [facility] on 12/03/22. -Admitted for: LLL pneumonia Do you have a hospital follow up appointment with your PCP? Appointment on 12/13/22 with pcp. Yes. Remind patient of appointment date, time, and location. If not within 14 calendar days of discharge - please reschedule accordingly. MEDICATIONS: Many patients have questions or concerns about their medications once they are home. Were you prescribed any new medications? If yes, what are those medications? Levofloxacin 750 mg one daily #7 Prednisone 20 mg daily #14 Were you told to hold any medications? No Were any of your medications discontinued? No Do you have any questions about getting or taking your medications? No Your discharge instructions/After visit Summary (AVS) are important in guiding you through the recovery process. Is there anything I might help you understand? No Do you have all the necessary equipment and supplies at home? Yes Medical records from recent hospitalization: Placed for provider to review Pt has routine appt 12/10/22 with pulmonology. documented in this encounter [facility] 11-29-2022 Miscellaneous Notes Reason for Call: Fever, nausea, chills, dizziness Outcome: Advised to GO TO ED NOW. Patient verbalized understanding and is NOT agreeable to the plan. Patient states she will wait it out and call her doctor's office tomorrow. Reason for Disposition Dizziness or lightheadedness NURSING JUDGEMENT: Patient was seen at [facility] Tuesday and told to return for any new/worsening symptoms and development of fever over 100.4 which patient is experiencing. [facility] Tuesday - Fever over 100.4 and goes up to 102 - History of COPD - HR 114 - 02 at 94% with 2L 02 - Chest pain 2/10 Quick stabbing sensation Feels it every time she coughs -Lightheaded with standing able to walk on her own short distance. Typically able to move about the house Chest pain not from an injury OR cause is unknown Protocols used: Chest [id number], Chest [id number] documented in this encounter [facility] 11-15-2022 Note HNO ID: [id number] Author: Tasha Walker APRN.MARIAN Service: ? Author Type: Nurse Practitioner Type: Progress Notes Filed: 11/15/2022 1:57 PM Note Text: CC: Patient presents with: Follow Up HPI Sneha Cardenas is a 67 year old female who presents today for above. Patient was seen on 11/11 for worsening cough and SOB. Treated with Levaquin and prednisone for COPD exacerbation. Today patient reports she is feeling a little better. Still using oxygen continuously but sats have improved. Albuterol and Duoneb use has decreased. Denies any new or worsening symptoms. REVIEW OF SYSTEMS See HPI PAST MEDICAL HISTORY Diagnosis Date Asthma Benign essential tremor COPD (chronic obstructive pulmonary disease) ([facility]) 07/25/2012 FEV1 0.84L (32%), 10/18/2014 DDD (degenerative disc disease), cervical 08/15/2015 Environmental allergies Wheezes with hay or dust Essential and other specified forms of tremor 11/02/2007 Benign essential -- started primidone 06/03/09, Dr. Nguyễn History of colon polyps 2009 Tubular adenoma. Hypertension Hypoxemia 05/01/2021 Post Covid pneumonia. Irritable bowel syndrome Migraine headache Improved with primidone Pneumonia due to COVID-19 virus 05/01/2021 Scoliosis Snoring Tobacco use disorder Quit 03/04/2015. Unspecified gastritis and gastroduodenitis without mention of hemorrhage 02/09/2010 Small ulcer on EGD 2009 PAST SURGICAL HISTORY Procedure Laterality Date ARTHROPLASTY TOTAL SHOULDER Right 02/2018 [facility]. Garo Stanford MD BREAST BIOPSY Left 30 yrs. COLONOSCOPY FLX DX W/COLLJ SPEC WHEN PFRMD 08/18/2012 normal colon - 10 year follow up COLONOSCOPY W/BIOPSY SINGLE/MULTIPLE 02/09/2010 lymphoid aggrigates at cecum, o/w normal EGD TRANSORAL BIOPSY SINGLE/MULTIPLE 02/09/2010 Gastritis/gastric ulcer/duodenitis EGD TRANSORAL BIOPSY SINGLE/MULTIPLE 08/18/2012 gastritis LAPS SURG CHOLECYSTECTOMY W/CHOLANGIOGRAPHY 12/12/2007 Normal IOC PAST SURGICAL HISTORY OF multiple several tubal pregnancies, tubes both removed over several surgeries PAST SURGICAL HISTORY OF 1993 left inguinal hernia with mesh PAST SURGICAL HISTORY OF 1989 Hemorrhoid surgery x2 TONSILLECTOMY AND ADENOIDECTOMY ALLERGIES Keflex [Cephalexin] MEDICATIONS levoFLOXacin (LEVAQUIN) 500 mg tablet Take 1 tablet by mouth once daily for 10 days. Nebulizer Accessories misc 1 Each as needed. Needs nebulizer tubing and mouthpiece guaiFENesin (MUCINEX) 600 mg 12 hr tablet Take 2 tablets by mouth twice daily. predniSONE (DELTASONE) 20 mg tablet Take 2 tablets by mouth once daily for 5 days. (Patient not taking: Reported on 11/15/2022) albuterol HFA (PROAIR HFA) 90 mcg/actuation inhaler Inhale 2 Puffs as instructed every 4 hours as needed. montelukast (SINGULAIR) 10 mg tablet Take 1 tablet by mouth daily at bedtime. lrombcnwqbb-hwomwznxx-giuxmsfh (TRELEGY ELLIPTA) 100-62.5-25 mcg inhalation powder Inhale 1 Puff as instructed once daily. ipratropium-albuterol (DUONEB) 0.5 mg-3 mg(2.5 mg base)/3 mL nebu Inhale 3 mL as instructed every 4 hours as needed for wheezing/shortness of breath. FAMILY HISTORY Adopted: Yes Problem Relation Age of Onset Scoliosis Daughter Natural daughter. Social History Tobacco Use Smoking status: Former Packs/day: 0.50 Years: 34.00 Pack years: 17.00 Types: Cigarettes Start date: 1974 Quit date: 05/23/2016 Years since quittin.4 Smokeless tobacco: Never Tobacco comments: Resumed short period. Quit for good 05/2016. Vaping Use Vaping Use: Never used Substance Use Topics Alcohol use: No Drug use: No PHYSICAL EXAM BP 140/64 Pulse 97 Resp 18 Wt 70.8 kg (156 lb) SpO2 94% BMI (P) 26.78 kg/m? General Appearance: in no acute distress, alert, mildly ill appearing Lungs: Lung sounds diminished throughout. Fine rales bibasilar. No wheezing or rhonchi. Heart: RRR without murmur, gallop, or rubs. No ectopy DATA REVIEWED: Most recent imaging ASSESSMENT/PLAN: 1. COPD with exacerbation (HCC) - ICD9: 491.21, ICD10: J44.1 Symptoms improving, no new or worsening symptoms. Chest x-ray results still pending. Reviewed by me, no acute findings. Will notify patient with radiologist final reading Continue with Levaquin Start prednisone burst with taper Follow-up pending results of x-ray Prescription instructions reviewed with patient as applicable. Potential red flag symptoms discussed with the patient. Reviewed appropriate action plan to take if red flag symptoms occur. Patient agreeable to treatment plan. Tasha Walker APRN.DIRECT SALES PROFESSIONAL [facility] 11-15-2022 History of Presen t illness Narrative CC: Patient presents with: Follow Up HPI Sneha Cardenas is a 67 year old female who presents today for above. Patient was seen on 11/11 for worsening cough and SOB. Treated with Levaquin and prednisone for COPD exacerbation. Today patient reports she is feeling a little better. Still using oxygen continuously but sats have improved. Albuterol and Duoneb use has decreased. Denies any new or worsening symptoms. REVIEW OF SYSTEMS See HPI PAST MEDICAL HISTORY Diagnosis Date Asthma Benign essential tremor COPD (chronic obstructive pulmonary disease) ([facility]) 07/25/2012 FEV1 0.84L (32%), 10/18/2014 DDD (degenerative disc disease), cervical 08/15/2015 Environmental allergies Wheezes with hay or dust Essential and other specified forms of tremor 11/02/2007 Benign essential -- started primidone 06/03/09, Dr. Nguyễn History of colon polyps 2010 Tubular adenoma. Hypertension Hypoxemia 05/01/2021 Post Covid pneumonia. Irritable bowel syndrome Migraine headache Improved with primidone Pneumonia due to COVID-19 virus 05/01/2021 Scoliosis Snoring Tobacco use disorder Quit 03/04/2015. Unspecified gastritis and gastroduodenitis without mention of hemorrhage 02/09/2010 Small ulcer on EGD 2009 PAST SURGICAL HISTORY Procedure Laterality Date ARTHROPLASTY TOTAL SHOULDER Right 02/2018 [facility]. Garo Stanford MD BREAST BIOPSY Left 30 yrs. COLONOSCOPY FLX DX W/COLLJ SPEC WHEN PFRMD 08/18/2012 normal colon - 10 year follow up COLONOSCOPY W/BIOPSY SINGLE/MULTIPLE 02/09/2010 lymphoid aggrigates at cecum, o/w normal EGD TRANSORAL BIOPSY SINGLE/MULTIPLE 02/09/2010 Gastritis/gastric ulcer/duodenitis EGD TRANSORAL BIOPSY SINGLE/MULTIPLE 08/18/2012 gastritis LAPS SURG CHOLECYSTECTOMY W/CHOLANGIOGRAPHY 12/12/2007 Normal IOC PAST SURGICAL HISTORY OF multiple several tubal pregnancies, tubes both removed over several surgeries PAST SURGICAL HISTORY OF 1993 left inguinal hernia with mesh PAST SURGICAL HISTORY OF 1989 Hemorrhoid surgery x2 TONSILLECTOMY & ADENOIDECTOMY <AGE 13 ALLERGIES Keflex [Cephalexin] MEDICATIONS levoFLOXacin (LEVAQUIN) 500 mg tablet Take 1 tablet by mouth once daily for 10 days. Nebulizer Accessories misc 1 Each as needed. Needs nebulizer tubing and mouthpiece guaiFENesin (MUCINEX) 600 mg 12 hr tablet Take 2 tablets by mouth twice daily. predniSONE (DELTASONE) 20 mg tablet Take 2 tablets by mouth once daily for 5 days. (Patient not taking: Reported on 11/15/2022) albuterol HFA (PROAIR HFA) 90 mcg/actuation inhaler Inhale 2 Puffs as instructed every 4 hours as needed. montelukast (SINGULAIR) 10 mg tablet Take 1 tablet by mouth daily at bedtime. cgapfduxvwp-dfpcziggz-pjjowzdb (TRELEGY ELLIPTA) 100-62.5-25 mcg inhalation powder Inhale 1 Puff as instructed once daily. ipratropium-albuterol (DUONEB) 0.5 mg-3 mg(2.5 mg base)/3 mL nebu Inhale 3 mL as instructed every 4 hours as needed for wheezing/shortness of breath. FAMILY HISTORY Adopted: Yes Problem Relation Age of Onset Scoliosis Daughter Natural daughter. Social History Tobacco Use Smoking status: Former Packs/day: 0.50 Years: 34.00 Pack years: 17.00 Types: Cigarettes Start date: 1974 Quit date: 05/23/2016 Years since quittin.4 Smokeless tobacco: Never Tobacco comments: Resumed short period. Quit for good 05/2016. Vaping Use Vaping Use: Never used Substance Use Topics Alcohol use: No Drug use: No PHYSICAL EXAM BP 140/64 Pulse 97 Resp 18 Wt 70.8 kg (156 lb) SpO2 94% BMI (P) 26.78 kg/m General Appearance: in no acute distress, alert, mildly ill appearing Lungs: Lung sounds diminished throughout. Fine rales bibasilar. No wheezing or rhonchi. Heart: RRR without murmur, gallop, or rubs. No ectopy DATA REVIEWED: Most recent imaging ASSESSMENT/PLAN: 1. COPD with exacerbation (HCC) - ICD9: 491.21, ICD10: J44.1 Symptoms improving, no new or worsening symptoms. Chest x-ray results still pending. Reviewed by me, no acute findings. Will notify patient with radiologist final reading Continue with Levaquin Start prednisone burst with taper Follow-up pending results of x-ray Prescription instructions reviewed with patient as applicable. Potential red flag symptoms discussed with the patient. Reviewed appropriate action plan to take if red flag symptoms occur. Patient agreeable to treatment plan. Tasha Walker APRN.CNP documented in this encounter [facility] 11-11-2022 Note HNO ID: [id number] Author: RT Alyce(R) Service: ? Author Type: Visual Stylist Type: Progress Notes Filed: 11/11/2022 3:14 PM Note Text: Radiology Service Progress Note PATIENT NAME: Sneha Cardenas DATE OF SERVICE: November 11, 2022 TIME: 3:04 PM PATIENT IDENTITY VERIFICATION COMPLETED USING TWO (2) IDENTIFIERS: Name and Date of confirmed by patient verbally. FALL SCREENING: Has the patient had 2 falls in the last year or 1 fall with injury or currently using an Ambulatory Assistive Device (Walker, Cane, Wheelchair, Crutches, etc.)? No PATIENT GENDER DATA: Female. status: : No status: NO. PATIENT RELEVANT IMPLANT DATA REVIEWED: Yes RADIOLOGY DEPARTMENT: General X-ray: Exam(s) Completed: Chest X-Ray PERIPHERAL IV DATA: Not applicable SIGNED BY: RT Alyce(R) November 11, 2022 3:04 PM [facility] 11-11-2022 Note HNO ID: [id number] Author: Jessie Walker APRN.CNP Service: ? Author Type: Nurse Practitioner Type: Progress Notes Filed: 11/11/2022 3:02 PM Note Text: CC: Patient presents with: Chest Congestion: Chest congestion, cough x 4 days HPI Sneha Cardenas is a 67 year old female who presents today for cough wheezing and shortness of breath. Symptoms occurring over the last 5 days and worsening. History of COPD and on home Oxygen at 2L chronically with exertion, is wearing it more often. Does not smoke. The last few days has needed her albuterol inhaler more often with needing 6 times already today. Has a nebulizer machine and medications but needs new tubing. Reports having a persistent cough and states she can feel congested with but unable to expectorate sputum, chills, decrease in energy, wheezing, shortness of breath, dizziness, and sinus congestion. Took a sudafed today with relief of sinus congestion. Is also using flonase. Denies fever, chest pressure, N/V/D, headaches, syncope, swelling, or known sick contacts. REVIEW OF SYSTEMS General: See HPI Respiratory: See HPI Cardiovascular: no chest pain, no chest pressure, no palpitations, and no swelling GI: No nausea, vomiting, or diarrhea Neurologic: No headache, weakness, numbness, tingling, , memory loss, syncope. PAST MEDICAL HISTORY Diagnosis Date Asthma Benign essential tremor COPD (chronic obstructive pulmonary disease) ([facility]) 07/25/2012 FEV1 0.84L (32%), 10/18/2014 DDD (degenerative disc disease), cervical 08/15/2015 Environmental allergies Wheezes with hay or dust Essential and other specified forms of tremor 11/02/2007 Benign essential -- started primidone 06/03/09, Dr. Nguyễn History of colon polyps 2010 Tubular adenoma. Hypertension Hypoxemia 05/01/2021 Post Covid pneumonia. Irritable bowel syndrome Migraine headache Improved with primidone Pneumonia due to COVID-19 virus 05/01/2021 Scoliosis Snoring Tobacco use disorder Quit 03/04/2015. Unspecified gastritis and gastroduodenitis without mention of hemorrhage 02/09/2010 Small ulcer on EGD 2009 PAST SURGICAL HISTORY Procedure Laterality Date ARTHROPLASTY TOTAL SHOULDER Right 02/2018 [facility]. Gaor Stanford MD BREAST BIOPSY Left 30 yrs. COLONOSCOPY FLX DX W/COLLJ SPEC WHEN PFRMD 08/18/2012 normal colon - 10 year follow up COLONOSCOPY W/BIOPSY SINGLE/MULTIPLE 02/09/2010 lymphoid aggrigates at cecum, o/w normal EGD TRANSORAL BIOPSY SINGLE/MULTIPLE 02/09/2010 Gastritis/gastric ulcer/duodenitis EGD TRANSORAL BIOPSY SINGLE/MULTIPLE 08/18/2012 gastritis LAPS SURG CHOLECYSTECTOMY W/CHOLANGIOGRAPHY 12/12/2007 Normal IOC PAST SURGICAL HISTORY OF multiple several tubal pregnancies, tubes both removed over several surgeries PAST SURGICAL HISTORY OF 1993 left inguinal hernia with mesh PAST SURGICAL HISTORY OF 1989 Hemorrhoid surgery x2 TONSILLECTOMY AND ADENOIDECTOMY ALLERGIES Keflex [Cephalexin] MEDICATIONS albuterol HFA (PROAIR HFA) 90 mcg/actuation inhaler Inhale 2 Puffs as instructed every 4 hours as needed. montelukast (SINGULAIR) 10 mg tablet Take 1 tablet by mouth daily at bedtime. ztaykxqfkrt-jfcrevonm-afmxroqs (TRELEGY ELLIPTA) 100-62.5-25 mcg inhalation powder Inhale 1 Puff as instructed once daily. ipratropium-albuterol (DUONEB) 0.5 mg-3 mg(2.5 mg base)/3 mL nebu Inhale 3 mL as instructed every 4 hours as needed for wheezing/shortness of breath. FAMILY HISTORY Adopted: Yes Problem Relation Age of Onset Scoliosis Daughter Natural daughter. Social History Tobacco Use Smoking status: Former Packs/day: 0.50 Years: 34.00 Pack years: 17.00 Types: Cigarettes Start date: 1974 Quit date: 05/23/2016 Years since quittin.4 Smokeless tobacco: Never Tobacco comments: Resumed short period. Quit for good 05/2016. Vaping Use Vaping Use: Never used Substance Use Topics Alcohol use: No Drug use: No PHYSICAL EXAM BP 138/90 Pulse 80 Temp 36.7 ?C (98 ?F) (Temporal) Resp 16 Wt 71.2 kg (157 lb) SpO2 92% BMI (P) 26.95 kg/m? General Appearance: well appearing, in no acute distress, alert Skin: Skin color, texture, turgor normal for age; Eyes: conjunctiva pink and moist, no icterus, sclera white, non-injected Ears: external ears normal to inspection and palpation, canals clear, Left tympanic membrane normal. , Right tympanic membrane normal Nose/sinus: Nares normal. Septum midline. Mucosa normal. No drainage., No sinus tenderness Neck: Thyroid normal size and symmetric without palpable nodules, Neck supple, No adenopathy Lymph nodes: No cervical lymphadenopathy and No supraclavicular lymphadenopathy Lungs: Lung sounds tight and diminished posteriorly. Crackles noted to RUL anteriorly Heart: RRR without murmur, gallop, or rubs. No ectopy Health maintenance reviewed with patient: SHINGRIX VACCINE(1 of 2) Never done COLORECTAL CANCER SCREENING (more content not included)... [facility] 11-11-2022 History of Presen t illness Narrative CC: Patient presents with: Chest Congestion: Chest congestion, cough x 4 days HPI Sneha Cardenas is a 67 year old female who presents today for cough wheezing and shortness of breath. Symptoms occurring over the last 5 days and worsening. History of COPD and on home Oxygen at 2L chronically with exertion, is wearing it more often. Does not smoke. The last few days has needed her albuterol inhaler more often with needing 6 times already today. Has a nebulizer machine and medications but needs new tubing. Reports having a persistent cough and states she can feel congested with but unable to expectorate sputum, chills, decrease in energy, wheezing, shortness of breath, dizziness, and sinus congestion. Took a sudafed today with relief of sinus congestion. Is also using flonase. Denies fever, chest pressure, N/V/D, headaches, syncope, swelling, or known sick contacts. REVIEW OF SYSTEMS General: See HPI Respiratory: See HPI Cardiovascular: no chest pain, no chest pressure, no palpitations, and no swelling GI: No nausea, vomiting, or diarrhea Neurologic: No headache, weakness, numbness, tingling, , memory loss, syncope. PAST MEDICAL HISTORY Diagnosis Date Asthma Benign essential tremor COPD (chronic obstructive pulmonary disease) ([facility]) 07/25/2012 FEV1 0.84L (32%), 10/18/2014 DDD (degenerative disc disease), cervical 08/15/2015 Environmental allergies Wheezes with hay or dust Essential and other specified forms of tremor 11/02/2007 Benign essential -- started primidone 06/03/09, Dr. Nguyễn History of colon polyps 2010 Tubular adenoma. Hypertension Hypoxemia 05/01/2021 Post Covid pneumonia. Irritable bowel syndrome Migraine headache Improved with primidone Pneumonia due to COVID-19 virus 05/01/2021 Scoliosis Snoring Tobacco use disorder Quit 03/04/2015. Unspecified gastritis and gastroduodenitis without mention of hemorrhage 02/09/2010 Small ulcer on EGD 2009 PAST SURGICAL HISTORY Procedure Laterality Date ARTHROPLASTY TOTAL SHOULDER Right 02/2018 [facility]. Grao Stanford MD BREAST BIOPSY Left 30 yrs. COLONOSCOPY FLX DX W/COLLJ SPEC WHEN PFRMD 08/18/2012 normal colon - 10 year follow up COLONOSCOPY W/BIOPSY SINGLE/MULTIPLE 02/09/2010 lymphoid aggrigates at cecum, o/w normal EGD TRANSORAL BIOPSY SINGLE/MULTIPLE 02/09/2010 Gastritis/gastric ulcer/duodenitis EGD TRANSORAL BIOPSY SINGLE/MULTIPLE 08/18/2012 gastritis LAPS SURG CHOLECYSTECTOMY W/CHOLANGIOGRAPHY 12/12/2007 Normal IOC PAST SURGICAL HISTORY OF multiple several tubal pregnancies, tubes both removed over several surgeries PAST SURGICAL HISTORY OF 1993 left inguinal hernia with mesh PAST SURGICAL HISTORY OF 1989 Hemorrhoid surgery x2 TONSILLECTOMY & ADENOIDECTOMY <AGE 13 ALLERGIES Keflex [Cephalexin] MEDICATIONS albuterol HFA (PROAIR HFA) 90 mcg/actuation inhaler Inhale 2 Puffs as instructed every 4 hours as needed. montelukast (SINGULAIR) 10 mg tablet Take 1 tablet by mouth daily at bedtime. yeymsiqvaub-awtkcffba-mrhdexxm (TRELEGY ELLIPTA) 100-62.5-25 mcg inhalation powder Inhale 1 Puff as instructed once daily. ipratropium-albuterol (DUONEB) 0.5 mg-3 mg(2.5 mg base)/3 mL nebu Inhale 3 mL as instructed every 4 hours as needed for wheezing/shortness of breath. FAMILY HISTORY Adopted: Yes Problem Relation Age of Onset Scoliosis Daughter Natural daughter. Social History Tobacco Use Smoking status: Former Packs/day: 0.50 Years: 34.00 Pack years: 17.00 Types: Cigarettes Start date: 1974 Quit date: 05/23/2016 Years since quittin.4 Smokeless tobacco: Never Tobacco comments: Resumed short period. Quit for good 05/2016. Vaping Use Vaping Use: Never used Substance Use Topics Alcohol use: No Drug use: No PHYSICAL EXAM BP 138/90 Pulse 80 Temp 36.7 C (98 F) (Temporal) Resp 16 Wt 71.2 kg (157 lb) SpO2 92% BMI (P) 26.95 kg/m General Appearance: well appearing, in no acute distress, alert Skin: Skin color, texture, turgor normal for age; Eyes: conjunctiva pink and moist, no icterus, sclera white, non-injected Ears: external ears normal to inspection and palpation, canals clear, Left tympanic membrane normal. , Right tympanic membrane normal Nose/sinus: Nares normal. Septum midline. Mucosa normal. No drainage., No sinus tenderness Neck: Thyroid normal size and symmetric without palpable nodules, Neck supple, No adenopathy Lymph nodes: No cervical lymphadenopathy and No supraclavicular lymphadenopathy Lungs: Lung sounds tight and diminished posteriorly. Crackles noted to RUL anteriorly Heart: RRR without murmur, gallop, or rubs. No ectopy Health maintenance reviewed with patient: SHINGRIX VACCINE(1 of 2) Never done COLORECTAL CANCER SCREENING due on 08/18/2022 MAMMOGRAM due on 08/26/2022 DIABETES SCREEN due on 04/05/2023 ANNUAL PCP TEAM CHRONIC DISEASE VISIT due on 11/06/2023 DTAP,TDAP,TD(2 - Td or Tdap) due on 04/12/2024 LIPID SCREEN due on 08/05/2026 BONE DENSITY Completed ALPHA-1 ANTITRYPSIN DEFICIENCY SCREENING Completed SPIROMETRY Completed INFLUENZA Completed ADVANCE DIRECTIVE DISCUSSION Completed DEPRESSION ASSESSMENT Completed HEPATITIS C SCREENING Completed COVID-19 VACCINE Completed PNEUMOCOCCAL: 65+ Completed DATA REVIEWED: No new labs ASSESSMENT/PLAN: 1. COPD with exacerbation (HCC) - ICD9: 491.21, ICD10: J44.1 (primary diagnosis) - with increase use of oxygen, over 65yrs of age, and abnormal breath sounds will treat with levaquin - also treating with prednisone burst and mucinex - XR CHEST 2V FRONTAL/LAT 2. Abnormal breath sounds - ICD9: 786.7, ICD10: R06.89 As above - XR CHEST 2V FRONTAL/LAT Prescription instructions reviewed with patient as applicable. Potential red flag symptoms discussed with the patient. Reviewed appropriate action plan to take if red flag symptoms occur. Patient agreeable to treatment plan. Jessie Walker APRN.CNP documented in this encounter [facility] 11-05-2022 Note HNO ID: [id number] Author: Julio Draper MD Service: ? Author Type: Physician Type: Progress Notes Filed: 11/07/2022 3:32 PM Note Text: This note was created using [employer]. Subjective Patient presents with: Yearly Exam Sneha Cardenas is a 67 year old female. She was doing reasonably well. Weight was stable, with limited ability to lose weight due to limited exercise capacity. COPD, asthma, and chronic hypoxemia were stable. Review of Systems Constitutional: Negative for activity change, appetite change, fatigue, fever and unexpected weight change. HENT: Negative. Respiratory: Positive for shortness of breath. Negative for cough and wheezing. Cardiovascular: Negative for chest pain, palpitations and leg swelling. Gastrointestinal: Negative for abdominal pain, constipation and diarrhea. Genitourinary: Negative for difficulty urinating and dysuria. Musculoskeletal: Negative for arthralgias. Neurological: Negative for dizziness and headaches. Psychiatric/Behavioral: Negative. PAST MEDICAL HISTORY Diagnosis Date Asthma Benign essential tremor COPD (chronic obstructive pulmonary disease) ([facility]) 07/25/2012 FEV1 0.84L (32%), 10/18/2014 DDD (degenerative disc disease), cervical 08/15/2015 Environmental allergies Wheezes with hay or dust Essential and other specified forms of tremor 11/02/2007 Benign essential -- started primidone 06/03/09, Dr. Nguyễn History of colon polyps 2009 Tubular adenoma. Hypertension Hypoxemia 05/01/2021 Post Covid pneumonia. Irritable bowel syndrome Migraine headache Improved with primidone Pneumonia due to COVID-19 virus 05/01/2021 Scoliosis Snoring Tobacco use disorder Quit 03/04/2015. Unspecified gastritis and gastroduodenitis without mention of hemorrhage 02/09/2010 Small ulcer on EGD 2009 PAST SURGICAL HISTORY Procedure Laterality Date ARTHROPLASTY TOTAL SHOULDER Right 02/2018 [facility]. Garo Stanford MD BREAST BIOPSY Left 30 yrs. COLONOSCOPY FLX DX W/COLLJ SPEC WHEN PFRMD 08/18/2012 normal colon - 10 year follow up COLONOSCOPY W/BIOPSY SINGLE/MULTIPLE 02/09/2010 lymphoid aggrigates at cecum, o/w normal EGD TRANSORAL BIOPSY SINGLE/MULTIPLE 02/09/2010 Gastritis/gastric ulcer/duodenitis EGD TRANSORAL BIOPSY SINGLE/MULTIPLE 08/18/2012 gastritis LAPS SURG CHOLECYSTECTOMY W/CHOLANGIOGRAPHY 12/12/2007 Normal IOC PAST SURGICAL HISTORY OF multiple several tubal pregnancies, tubes both removed over several surgeries PAST SURGICAL HISTORY OF 1993 left inguinal hernia with mesh PAST SURGICAL HISTORY OF 1989 Hemorrhoid surgery x2 TONSILLECTOMY AND ADENOIDECTOMY FAMILY HISTORY Adopted: Yes Problem Relation Age of Onset Scoliosis Daughter Natural daughter. Social History Tobacco Use Smoking status: Former Packs/day: 0.50 Years: 34.00 Pack years: 17.00 Types: Cigarettes Start date: 1974 Quit date: 05/23/2016 Years since quittin.4 Smokeless tobacco: Never Tobacco comments: Resumed short period. Quit for good 05/2016. Vaping Use Vaping Use: Never used Substance Use Topics Alcohol use: No Drug use: No ALLERGIES Allergen Reactions Keflex [Cephalexin] Intolerance Tachycardia, palpitations. Current Outpatient Medications Medication Sig albuterol HFA (PROAIR HFA) 90 mcg/actuation inhaler Inhale 2 Puffs as instructed every 4 hours as needed. montelukast (SINGULAIR) 10 mg tablet Take 1 tablet by mouth daily at bedtime. chlkmpoqqie-drhsjvzqt-coubmruj (TRELEGY ELLIPTA) 100-62.5-25 mcg inhalation powder Inhale 1 Puff as instructed once daily. ipratropium-albuterol (DUONEB) 0.5 mg-3 mg(2.5 mg base)/3 mL nebu Inhale 3 mL as instructed every 4 hours as needed for wheezing/shortness of breath. No current facility-administered medications for this visit. Objective BP (P) 128/72 (BP Site: Left Arm, BP Position: Sitting, BP Cuff Size: Regular Adult) Pulse (P) 78 Resp (P) 16 Ht (P) 162.6 cm (5' 4 ) Wt (P) 70.8 kg (156 lb) SpO2 (P) 92% BMI (P) 26.78 kg/m? Physical Exam Constitutional: General: She is not in acute distress. Appearance: She is not ill-appearing. HENT: Head: Normocephalic. Eyes: Conjunctiva/sclera: Conjunctivae normal. Cardiovascular: Rate and Rhythm: Normal rate and regular rhythm. Heart sounds: No murmur heard. No gallop. Pulmonary: Effort: No respiratory distress. Breath sounds: No wheezing, rhonchi or rales. Comments: Portable O2 via NC. Abdominal: Palpations: Abdomen is soft. Tenderness: There is no abdominal tenderness. Musculoskeletal: Right lower leg: No edema. Left lower leg: No edema. Lymphadenopathy: Cervical: No cervical adenopathy. Neurological: General: No focal deficit present. Mental Status: She is alert. Psychiatric: Mood and Affect: Mood normal. Depression Screening 09/19/2017 05/06/2021 05/03/2022 11/05/2022 PHQ-2 Score 0 1 0 0 LORRAINE-2 Total Score - - - - Depress (more content not included)... [facility] 11-05-2022 Nurse Note Waist Circumference: 40 inches Estella Oliva LPN documented in this encounter [facility] 11-05-2022 Instructions Julio Draper MD - 11/05/2022 4:52 PM EDT Advance Directive Forms Advanced Directives Forms (Citizen Of [place]) FORMS: 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. Patient Resources How to Get Started Talking with Loved Ones about your Wishes at the End of Life [email or web address] rg/wp-content/uploads//Co nversationProject-ConvoStarterKi t-Citizen Of [place].pdf How to Navigate Conversations with your Care Team around your Preferences [email or web address] [email or web address] documented in this encounter [facility] 11-05-2022 History of Presen t illness Narrative This note was created using NoteWriter. Subjective Patient presents with: Yearly Exam Sneha Cardenas is a 67 year old female. She was doing reasonably well. Weight was stable, with limited ability to lose weight due to limited exercise capacity. COPD, asthma, and chronic hypoxemia were stable. Review of Systems Constitutional: Negative for activity change, appetite change, fatigue, fever and unexpected weight change. HENT: Negative. Respiratory: Positive for shortness of breath. Negative for cough and wheezing. Cardiovascular: Negative for chest pain, palpitations and leg swelling. Gastrointestinal: Negative for abdominal pain, constipation and diarrhea. Genitourinary: Negative for difficulty urinating and dysuria. Musculoskeletal: Negative for arthralgias. Neurological: Negative for dizziness and headaches. Psychiatric/Behavioral: Negative. PAST MEDICAL HISTORY Diagnosis Date Asthma Benign essential tremor COPD (chronic obstructive pulmonary disease) ([facility]) 07/25/2012 FEV1 0.84L (32%), 10/18/2014 DDD (degenerative disc disease), cervical 08/15/2015 Environmental allergies Wheezes with hay or dust Essential and other specified forms of tremor 11/02/2007 Benign essential -- started primidone 06/03/09, Dr. Nguyễn History of colon polyps 2009 Tubular adenoma. Hypertension Hypoxemia 05/01/2021 Post Covid pneumonia. Irritable bowel syndrome Migraine headache Improved with primidone Pneumonia due to COVID-19 virus 05/01/2021 Scoliosis Snoring Tobacco use disorder Quit 03/04/2015. Unspecified gastritis and gastroduodenitis without mention of hemorrhage 02/09/2010 Small ulcer on EGD 2009 PAST SURGICAL HISTORY Procedure Laterality Date ARTHROPLASTY TOTAL SHOULDER Right 02/2018 [facility]. Garo Stanford MD BREAST BIOPSY Left 30 yrs. COLONOSCOPY FLX DX W/COLLJ SPEC WHEN PFRMD 08/18/2012 normal colon - 10 year follow up COLONOSCOPY W/BIOPSY SINGLE/MULTIPLE 02/09/2010 lymphoid aggrigates at cecum, o/w normal EGD TRANSORAL BIOPSY SINGLE/MULTIPLE 02/09/2010 Gastritis/gastric ulcer/duodenitis EGD TRANSORAL BIOPSY SINGLE/MULTIPLE 08/18/2012 gastritis LAPS SURG CHOLECYSTECTOMY W/CHOLANGIOGRAPHY 12/12/2007 Normal IOC PAST SURGICAL HISTORY OF multiple several tubal pregnancies, tubes both removed over several surgeries PAST SURGICAL HISTORY OF 1993 left inguinal hernia with mesh PAST SURGICAL HISTORY OF 1989 Hemorrhoid surgery x2 TONSILLECTOMY & ADENOIDECTOMY <AGE 13 FAMILY HISTORY Adopted: Yes Problem Relation Age of Onset Scoliosis Daughter Natural daughter. Social History Tobacco Use Smoking status: Former Packs/day: 0.50 Years: 34.00 Pack years: 17.00 Types: Cigarettes Start date: 1974 Quit date: 05/23/2016 Years since quittin.4 Smokeless tobacco: Never Tobacco comments: Resumed short period. Quit for good 05/2016. Vaping Use Vaping Use: Never used Substance Use Topics Alcohol use: No Drug use: No ALLERGIES Allergen Reactions Keflex [Cephalexin] Intolerance Tachycardia, palpitations. Current Outpatient Medications Medication Sig albuterol HFA (PROAIR HFA) 90 mcg/actuation inhaler Inhale 2 Puffs as instructed every 4 hours as needed. montelukast (SINGULAIR) 10 mg tablet Take 1 tablet by mouth daily at bedtime. curvetirvfr-bbggxvgaq-vtycejcy (TRELEGY ELLIPTA) 100-62.5-25 mcg inhalation powder Inhale 1 Puff as instructed once daily. ipratropium-albuterol (DUONEB) 0.5 mg-3 mg(2.5 mg base)/3 mL nebu Inhale 3 mL as instructed every 4 hours as needed for wheezing/shortness of breath. No current facility-administered medications for this visit. Objective BP (P) 128/72 (BP Site: Left Arm, BP Position: Sitting, BP Cuff Size: Regular Adult) Pulse (P) 78 Resp (P) 16 Ht (P) 162.6 cm (5' 4 ) Wt (P) 70.8 kg (156 lb) SpO2 (P) 92% BMI (P) 26.78 kg/m Physical Exam Constitutional: General: She is not in acute distress. Appearance: She is not ill-appearing. HENT: Head: Normocephalic. Eyes: Conjunctiva/sclera: Conjunctivae normal. Cardiovascular: Rate and Rhythm: Normal rate and regular rhythm. Heart sounds: No murmur heard. No gallop. Pulmonary: Effort: No respiratory distress. Breath sounds: No wheezing, rhonchi or rales. Comments: Portable O2 via NC. Abdominal: Palpations: Abdomen is soft. Tenderness: There is no abdominal tenderness. Musculoskeletal: Right lower leg: No edema. Left lower leg: No edema. Lymphadenopathy: Cervical: No cervical adenopathy. Neurological: General: No focal deficit present. Mental Status: She is alert. Psychiatric: Mood and Affect: Mood normal. Depression Screening 09/19/2017 05/06/2021 05/03/2022 11/05/2022 PHQ-2 Score 0 1 0 0 LORRAINE-2 Total Score - - - - Depression screening tool completed and reviewed. Based on score and interview, patient is not at risk for depression. Screening tool discussed with patient, and I recommended no further intervention at this time. Assessment and Plan 1. Routine medical exam - ICD9: V70.0, ICD10: Z00.00 (primary diagnosis) - Counseled on healthy diet and regular exercise - Refer for cervical cancer screening . - She chose to decrease mammogram frequency so will skip this year. - ADVANCE CARE PLAN DISCUSSION - DEPRESSION SCREENING/ASSESSMENT - COMP METABOLIC PANEL - LIPID PANEL BASIC 2. Chronic respiratory failure with hypoxia (HCC) - ICD9: 518.83, 799.02, ICD10: J96.11 Stable. 3. COPD with asthma (HCC) - ICD9: 493.20, ICD10: J44.9 Stable. 4. Hyperlipidemia, unspecified hyperlipidemia type - ICD9: 272.4, ICD10: E78.5 - to be determined upon return of lab results - Encouraged following a low carbohydrate, healthy oil intake diet. 5. Screening for cervical cancer - ICD9: V76.2, ICD10: Z12.4 - CONSULT TO GYNECOLOGY 6. Screening for colon cancer - ICD9: V76.51, ICD10: Z12.11 Shared medical decision was made regarding options. - COLOGUARD 7. Need for vaccination - ICD9: V05.9, ICD10: Z23 - PNEUMOCOCCAL VACCINE (PREVNAR 20) Julio Draper MD documented in this encounter [facility] 10-23-2022 Miscellaneous Notes Patient has been identified by name and date of : Yes, Patient phones for refill(s): Requested Prescriptions Pending Prescriptions Disp Refills albuterol HFA (PROAIR HFA) 90 mcg/actuation inhaler 36 g 0 Sig: Inhale 2 Puffs as instructed every 4 hours as needed. Date of last office visit in primary care: 05/03/2022 Yearly w/PCP: 11/05/2022 Last 2 Encounter Wt Readings: Date: Wt: 05/25/2022 72.6 kg (160 lb) 05/03/2022 72.1 kg (159 lb) Previous labs/tests for medication: Not applicable Please advise. Thank you. Anushka Alexis LPN Patient has been identified by name and date of : Yes, Provider JULIO DRAPER Date 10/23/22 Time 1029 Patient phones for refill(s): Requested Prescriptions Pending Prescriptions Disp Refills albuterol HFA (PROAIR HFA) 90 mcg/actuation inhaler 36 g 0 Sig: Inhale 2 Puffs as instructed every 4 hours as needed. Date of last office visit in primary care: 05/03/22 Last 2 Encounter Wt Readings: Date: Wt: 05/25/2022 72.6 kg (160 lb) 05/03/2022 72.1 kg (159 lb) Previous labs/tests for medication: Not applicable Please advise. Thank you. Genna Sarmiento documented in this encounter [facility] 10-06-2022 Note Patient Outreach (IN TMMN) SNEHA CARDENAS ([id number]) 1955 F Date Time Provider Department 10/06/22 JULIO DRAPER During your visit today, we recorded the following information about you: Allergies As of Date: 10/06/2022 Noted Allergy Reaction KEFLEX (CEPHALEXIN) 10/04/2005 5 - Intolerance Comments: Tachycardia, palpitations. Date Reviewed: 05/25/2022 Reviewed by: Jasmine Evangelista MD - Fully Assessed Visit Diagnosis:Encounter for screening mammogram for breast cancer [Z12.31] Order(s):[facility] SCREENING [[id number]] Order #: [id number] FUTURE Prescriptions as of 10/11/2022 - albuterol HFA (PROAIR HFA) 90 mcg/actuation inhaler Inhale 2 Puffs as instructed every 4 hours as needed. - montelukast (SINGULAIR) 10 mg tablet Take 1 tablet by mouth daily at bedtime. - wzlxocuvoka-vmpwzvrib-zfhmrofx (TRELEGY ELLIPTA) 100-62.5-25 mcg inhalation powder Inhale 1 Puff as instructed once daily. - fluticasone (FLONASE) 50 mcg/actuation nasal spray Use 1 [place] in each nostril once daily. - ipratropium-albuterol (DUONEB) 0.5 mg-3 mg(2.5 mg base)/3 mL nebu Inhale 3 mL as instructed every 4 hours as needed for wheezing/shortness of breath. Problem List As Of Date 10/06/2022 Noted Resolved Tobacco use disorder [F17.200] 11/02/2007 02/10/2017 Essential tremor [G25.0] 11/02/2007 Other specified disorder of gallbladder [K82.8] 12/11/2007 07/20/2012 Unspecified gastritis and gastroduodenitis with*02/09/2010 07/15/2015 Blood in stool [K92.1] 02/09/2010 07/20/2012 Loss of weight [R63.4] 02/09/2010 07/20/2012 Hemorrhage of gastrointestinal tract, unspecifi*02/09/2010 07/15/2015 Acute gastritis without mention of hemorrhage [*02/09/2010 07/20/2012 Essential hypertension, benign [I10] 05/17/2011 07/15/2015 Migraine headache [G43.909] 07/15/2015 Irritable bowel syndrome [K58.9] 07/15/2015 Scoliosis [M41.9] 02/10/2017 Environmental allergies [Z91.09] History of colon polyps [Z86.010] 07/15/2015 COPD with asthma (HCC) [J44.9] 07/25/2012 Cervical disc disorder with radiculopathy [M50.*08/15/2015 02/10/2017 DDD (degenerative disc disease), cervical [M50.*08/15/2015 02/10/2017 Essential hypertension, benign [I10] 06/03/2016 08/29/2017 Asthma [J45.909] 02/15/2019 Hyperlipidemia [E78.5] 02/15/2019 Age-related osteoporosis without current pathol*08/28/2021 Hypoxemia [R09.02] 05/01/2021 Lung nodule seen on imaging study [R91.1] 05/12/2021 Elevated blood pressure reading [R03.0] 05/03/2022 Encounter Status:Closed by JOSE ALEJANDRO CHANDLERUSER on 10/11/22 [facility] 09-10-2022 Miscellaneous Notes Last seen pcp 05/03/22. Next appt with pcp 11/05/22. Pharmacy verified in [facility] Patient has been identified by name and date of : Yes Patient aware RX will be sent to pharmacy. No need to notify patient. Patient phones for refill(s): Requested Prescriptions Pending Prescriptions Disp Refills albuterol HFA (PROAIR HFA) 90 mcg/actuation inhaler 36 g 0 Sig: Inhale 2 Puffs as instructed every 4 hours as needed. Date of last office visit : 05/03/2022 Date of next office visit : 11/05/2022 Last 2 Encounter Wt Readings: Date: Wt: 05/25/2022 72.6 kg (160 lb) 05/03/2022 72.1 kg (159 lb) Please advise. Luna Kelly Pss documented in this encounter [facility] 07-31-2022 Miscellaneous Notes Patient has been identified by name and date of : Yes, Patient phones for refill(s): Requested Prescriptions Pending Prescriptions Disp Refills montelukast (SINGULAIR) 10 mg tablet 30 tablet 5 Sig: Take 1 tablet by mouth daily at bedtime. Date of last office visit in primary care: 05/03/2022 Yearly: 11/01/2022 Last 2 Encounter Wt Readings: Date: Wt: 05/25/2022 72.6 kg (160 lb) 05/03/2022 72.1 kg (159 lb) Previous labs/tests for medication: Not applicable Please advise. Thank you. Anushka Alexis LPN Patient has been identified by name and date of : Yes, Provider Date 07/31/2022 Time 9:10 Patient phones for refill(s): Requested Prescriptions Pending Prescriptions Disp Refills montelukast (SINGULAIR) 10 mg tablet 30 tablet 5 Sig: Take 1 tablet by mouth daily at bedtime. Date of last office visit in primary care: 2021 Last 2 Encounter Wt Readings: Date: Wt: 05/25/2022 72.6 kg (160 lb) 05/03/2022 72.1 kg (159 lb) Previous labs/tests for medication: Not applicable Please advise. Thank you. Jacinta Luna documented in this encounter [facility] 05-25-2022 History of Presen t illness Narrative Images from the original note were not included. . Respiratory Remer Note Patient name: Sneha Cardenas PCP: Julio Draper MD CC: COPD HPI: Sneha Cardenas 67 year old female former less than < 20 ppd smoker, quitting in 2015 with PMH significant for tremor, HTN, COVID PNA 04/2021 (treated with monoclonal antibodies and oxygen), chronic hypoxemic respiratory failure, severe COPD former patient of Dr. Kent. Today she presents for follow-up after her chest CT. From a respiratory standpoint she states she has been doing fairly well. Mainly has dyspnea on exertion, especially with carrying heavy objects. She changed oxygen companies continue to ambulating with E tanks. She has been wearing her oxygen continuously, previously only wearing it at night. Current therapy for her COPD consists of Trelegy Ellipta with as needed. She also has DuoNeb to use as needed. She rarely uses her nebulizer due to worsening of her tremor. No recent upper respiratory infection or hospitalization for her COPD. Chronic cough, wheezing, chest pain. No nocturnal awakenings. Chest CT shows emphysema and resolution of her GGO. She does not qualify for LDCT of chest for cancer screening based on pack year history less than 20 but would recommend follow-up chest CT on one year for other nodules. DME: Jorge DATA: PFT 2020: Christopher function test shows moderately severe obstruction Imaging / Diagnostic Studies: DATE OF EXAM: May 25 2022 1:28PM [facility] 0541 - CT CHEST WO IVCON / PROCEDURE REASON: multiple diagnoses Comparison: CT chest on 05/22/2021 RESULT: Limitations: None. Lines, tubes, and devices: None. Lung parenchyma and airways: The central airways are patent. The previously mentioned groundglass opacities in the right lower lobe have resolved. No new consolidations seen. Stable plaque or thickening along the right accessory fissure, series 6 image 100. There is a stable 4 mm nodule in the right apex, series 6 image 17. A stable 7 mm nodule in the left upper lobe, series 6 image 52. Additional stable nodule noted in the left lower measuring 3-4 mm, series 6 image 151. No new nodules identified. There are scattered foci of calcifications in the bilateral lungs. The bilateral lungs are remarkable for moderate emphysema with upper lung predominance. There are focal atelectases or scarring in the bilateral lungs, unchanged. Pleural space: No pleural effusion. No pleural thickening. Lower neck, lymph nodes, and mediastinum: The imaged thyroid gland is normal. No lymphadenopathy in the supraclavicular, axillary, mediastinal, or hilar regions. Lymph node calcifications are again noted in the right hilum, presumably related to remote granulomatous disease. Heart, pericardium, and thoracic vessels: The thoracic aorta and main pulmonary artery are normal in caliber. The cardiac chambers are normal in size. Punctate coronary artery atherosclerotic calcifications are noted, although the study is not optimized for coronary assessment. No pericardial effusion or thickening. Bones and soft tissues: No destructive bone lesion. Status post right shoulder arthroplasty. Chest wall soft tissue is within normal limits. Upper abdomen: Limited study through the upper abdomen demonstrates no interval changes. Lead Auditor (topogram) images: No additional findings. IMPRESSION: Interval resolution of previously seen groundglass opacities in the right lower lobe. Moderate emphysema. A few stable lung nodules as described above. No new nodules seen. Remote granulomatous disease. I personally reviewed the images and agree with the above assessment PAST MEDICAL HISTORY Diagnosis Date Asthma Benign essential tremor COPD (chronic obstructive pulmonary disease) (HCC) 07/25/2012 FEV1 0.84L (32%), 10/18/2014 DDD (degenerative disc disease), cervical 08/15/2015 Environmental allergies Wheezes with hay or dust Essential and other specified forms of tremor 11/02/2007 Benign essential -- started primidone 06/03/09, Dr. Nguyễn History of colon polyps 2009 Tubular adenoma. Hypertension Hypoxemia 05/01/2021 Post Covid pneumonia. Irritable bowel syndrome Migraine headache Improved with primidone Pneumonia due to COVID-19 virus 05/01/2021 Scoliosis Snoring Tobacco use disorder Quit 03/04/2015. Unspecified gastritis and gastroduodenitis without mention of hemorrhage 02/09/2010 Small ulcer on EGD 2009 ALLERGIES Allergen Reactions Keflex [Cephalexin] Intolerance Tachycardia, palpitations. fluticasone (FLONASE) 50 mcg/actuation nasal spray Use 1 [place] in each nostril once daily. montelukast (SINGULAIR) 10 mg tablet Take 1 tablet by mouth daily at bedtime. prigwcjuadu-nljxypwua-ixfbmzhc (TRELEGY ELLIPTA) 100-62.5-25 mcg inhalation powder Inhale 1 Puff as instructed once daily. albuterol HFA (PROAIR HFA) 90 mcg/actuation inhaler Inhale 2 Puffs as instructed every 4 hours as needed. ipratropium-albuterol (DUONEB) 0.5 mg-3 mg(2.5 mg base)/3 mL nebu Inhale 3 mL as instructed every 4 hours as needed for wheezing/shortness of breath. Social History Tobacco Use Smoking status: Former Packs/day: 0.50 Years: 34.00 Pack years: 17.00 Types: Cigarettes Start date: 1974 Quit date: 05/23/2016 Years since quittin.0 Smokeless tobacco: Never Tobacco comments: Resumed short period. Quit for good 05/2016. Vaping Use Vaping Use: Never used Substance Use Topics Alcohol use: No Drug use: No FAMILY HISTORY Adopted: Yes Problem Relation Age of Onset Scoliosis Daughter Natural daughter. PMH, Social history, family history and surgical history reviewed and updated REVIEW OF SYSTEMS: CONSTITUTIONAL: No fevers, chills, nightsweats, unintended weight loss. Weight gain since smoking cessation HEENT: Denies nasal congestion/sinus symptoms, problematic allergy problems. CARDIOVASCULAR: No chest pain, palpitations, orthopnea, PND, edema. PULM: See HPI GI: No dysphagia/odynophagia, problematic reflux NEURO: No new balance problems, peripheral weakness/paresthesias or numbness of concern. PSY: No concerns regarding depression, anxiety INTEGUMENTARY: No new skin changes. Thinning hair PHYSICAL EXAMINATION: Wt 160 lb (72.6kg) SpO2 98[2 L]% BP 122/74, pulse 84, RR 21 General Appearance: Age-appropriate female, NAD, benign tremor Skin: Skin color, texture, turgor normal, no suspicious rashes or lesions. Head: Normocephalic, no masses, lesions, tenderness or abnormalities. Eyes: Sclera, conjunctiva normal Oropharynx: No oral lesions or thrush Neck: No JVD, no masses, no adenopathy Lungs: Hyperresonant to percussion, very diminished breath sounds, no wheezes or crackles Heart: Regular rate and rhythm, no murmurs or gallops Extremities: No edema or clubbing. Black toenail left great toe consistent with trauma Assessment/Plan: 1. Severe COPD, GOLD stage 3/emphysema -Alpha 1 antitrypsin level -Continue Trelegy Ellipta with as needed albuterol 2. Lung nodules -Stable nodules and resolution of previous new GGO -Follow-up chest CT in one year 3. Chronic hypoxemic respiratory failure -Patient is compliant with and benefits from supplemental oxygen Jasmine Evangelista MD Respiratory Remer documented in this encounter [facility] 05-25-2022 History of Presen t illness Narrative Radiology Service Progress Note PATIENT NAME: Sneha Cardenas DATE OF SERVICE: May 25, 2022 TIME: 2:17 PM PATIENT IDENTITY VERIFICATION COMPLETED USING TWO (2) IDENTIFIERS: Name and Date of confirmed by patient verbally. FALL SCREENING: Has the patient had 2 falls in the last year or 1 fall with injury or currently using an Ambulatory Assistive Device (Walker, Cane, Wheelchair, Crutches, etc.)? No PATIENT GENDER DATA: Female. status: : No status: NO. PATIENT RELEVANT IMPLANT DATA REVIEWED: Not Applicable RADIOLOGY DEPARTMENT: CT; Exam(s) Completed: Chest PERIPHERAL IV DATA: Not applicable SIGNED BY: RT Burke(R) May 25, 2022 2:17 PM documented in this encounter [facility] 05-03-2022 History of Presen t illness Narrative This note was created using [employer]. Subjective Sneha Cardenas is a 66 year old female. She was oxygen dependent now and followed with pulmonary regularly. She was waiting for a portable oxygen unit. Pulmonary was also following up on a lung nodule seen on CT. We reviewed her blood pressure elevation. She was slowly gaining weight. She noted painless discoloration of her left big toenail several days ago. Review of Systems Constitutional: Negative. Respiratory: Negative. Cardiovascular: Negative. Gastrointestinal: Negative. Neurological: Negative. Psychiatric/Behavioral: Negative. ACTIVE PROBLEM LIST Essential Tremor Environmental Allergies Copd With Asthma (Hcc) Hyperlipidemia Age-Related Osteoporosis Without Current Pathological Fracture Hypoxemia Lung Nodule Seen On Imaging Study Current Outpatient Medications Medication Sig albuterol HFA (PROAIR HFA) 90 mcg/actuation inhaler Inhale 2 Puffs as instructed every 4 hours as needed. yljnqhpujnv-ugskgonri-cbpljpub (TRELEGY ELLIPTA) 100-62.5-25 mcg inhalation powder Inhale 1 Puff as instructed once daily. montelukast (SINGULAIR) 10 mg tablet Take 1 tablet by mouth daily at bedtime. ipratropium-albuterol (DUONEB) 0.5 mg-3 mg(2.5 mg base)/3 mL nebu Inhale 3 mL as instructed every 4 hours as needed for wheezing/shortness of breath. albuterol (PROVENTIL) 2.5 mg /3 mL (0.083 %) nebulizer solution Use 3 mL via nebulizer every 6 hours as needed for Wheezing/Shortness of Breath. 1 vial contains 3 ml. fluticasone (FLONASE) 50 mcg/actuation nasal spray Use 1 Lavaca in each nostril once daily. No current facility-administered medications for this visit. Objective BP 138/74 (BP Site: Left Arm, BP Position: Sitting, BP Cuff Size: Large Adult) Pulse 84 Temp 36.5 C (97.7 F) (Temporal) Resp 16 Wt 72.1 kg (159 lb) SpO2 97% BMI 27.29 kg/m Physical Exam Constitutional: General: She is not in acute distress. Appearance: She is not ill-appearing. HENT: Head: Normocephalic. Cardiovascular: Rate and Rhythm: Normal rate and regular rhythm. Heart sounds: No murmur heard. No gallop. Pulmonary: Breath sounds: Normal breath sounds. No wheezing or rales. Comments: On O2 via tank, NC Musculoskeletal: Right lower leg: No edema. Left lower leg: No edema. Skin: Comments: Left big toenail with a bluish hue, non tender. Neurological: General: No focal deficit present. Mental Status: She is alert. Assessment and Plan 1. COPD with asthma (HCC) - ICD9: 493.20, ICD10: J44.9 (primary diagnosis) Continue care. 2. Need for influenza vaccination - ICD9: V04.81, ICD10: Z23 - INFLUENZA SEASONAL QUADRIVALENT HIGH DOSE AGE 65+ - Ogin COVID-19 BIVALENT BOOSTER VACCINE, AGE 12+ YR 3. Hypoxemia - ICD9: 799.02, ICD10: R09.02 Waiting for portable O2 per pulmonary. 4. Hyperlipidemia, unspecified hyperlipidemia type - ICD9: 272.4, ICD10: E78.5 - to be determined upon return of lab results 5. Deformity of toenail - ICD9: 703.9, ICD10: L60.8 Discoloration left big toenail. Observe. 6. Environmental allergies - ICD9: V15.09, ICD10: Z91.09 - FLUTICASONE PROPIONATE 50 MCG/ACTUATION NASAL SPRAY,SUSPENSION 7. Lung nodule seen on imaging study - ICD9: 793.11, ICD10: R91.1 Follow up per pulmonary. 8. Elevated blood pressure reading - ICD9: 796.2, ICD10: R03.0 - Encouraged dietary sodium restriction/DASH diet - Recommended regular aerobic exercise. - Discussed need and benefit for weight loss. - Reviewed risks of HTN and principles of treatment - Goal of BP <130/80 Julio Draper MD documented in this encounter [facility] 04-22-2022 Miscellaneous Notes Pt called in asking for an update on below. Notified requested paperwork was faxed today 04/22/22. Pt verbalized understanding Faxed demographic sheet to [facility]. Naye Solorio LPN [facility] called. Verified name and date of of patient. Per [facility] they have O2 Order but need demographics for patient. Need demographics faxed to . Naye Solorio LPN documented in this encounter [facility] 04-22-2022 Miscellaneous Notes Printed and signed new order. If [facility] does not accept it, patient has an upcoming appointment with Dr. Evangelista that we can add an oximetry with ambulation. Paulette Will forward to Paulette for her return to clinic . Last order from January sent to [facility]. Abimbola Lewis LPN Patient called in asking for oxygen order, office notes and insurance card to be faxed to [facility] at [phone]. documented in this encounter [facility] 04-21-2022 Miscellaneous Notes RONALD: 11/12/2021 Last refill: 06/23/2020 QTY: 100 Refills: 1 Patient has been identified by name and date of : Yes Requested Prescriptions Pending Prescriptions Disp Refills albuterol HFA (PROAIR HFA) 90 mcg/actuation inhaler 36 g 11 Sig: Inhale 2 Puffs as instructed every 4 hours as needed. RX INSTRUCTIONS: Patient aware RX will be sent to pharmacy. No need to notify patient. Grace Farr Pss documented in this encounter [facility] 01-28-2022 Miscellaneous Notes Script printed and signed. May be FAXED to [facility]. Paulette Pt called in and reports that [facility] needs her to send in a new prescription for her oxygen. She states the old one was from the hospital when she was in with Covid and it is about to . Please send new order for O2 to [facility] at [phone]. documented in this encounter [facility] 01-21-2022 History of Presen t illness Narrative [facility] Respiratory Remer, 01/21/2022: Name: Sneha Cardenas : 1955 The patient is here by herself. HPI: Sneha Cardenas is a 66 yo female former smoker, 20-lmgb-erxba with PMH significant for COPD, benign essential tremor, HTN, tubular adenoma 2009, and Covid 19 pneumonia in April 2021 requiring hospitalization and supplemental oxygen despite receiving monoclonal antibodies. The patient is here for follow up of COPD. Since the last Pulmonary Clinic visit 05/25/2021, the patient presented to on 11/02 secondary to shortness of breath and coughing as well as lightheadedness with vertigo. Was directed to go to the ED for further evaluation. CTA negative for PE. Treated with Prednisone. Claims to be consistently compliant with prescribed maintenance Rx Trelegy ellipta and Montelukast. Using Flonase nightly and states the post nasal drip and drainage is significantly improved. Uses nebulizer most weekends if she is cleaning. Limits usage secondary to essential tremors which are worsened by albuterol. Daily cough that has not returned . Non-productive. No hemoptysis. No wheezing. No dyspnea at rest. Exertional dyspnea has not returned to baseline since Covid pna in April 2021. Is currently working from home. No lower extremity edema. Currently wearing 2-3 L supplemental oxygen as needed. DME: [employer]. PMH: Updated with patient today. FAMH: Updated with patient today. SOCH: Updated with patient today. IMMUNIZATIONS Prevnar 13 - xx Pneumovax 23 - 08/12/2021, 09/05/2015 Influenza - 08/12/2021 COVID-19 - 09/04/2021, 10/06/2020, 09/08/2020 ROS: General: Generally feels good. Appetite good. Eyes, Ears, nose, throat: No post nasal drip or rhinorrhea with Flonase. No purulent nasal discharge, epistaxis. No hoarseness. Vision stable. Cardiac: No angina, edema, orthopnea. Resp: See HPI. GI: No heartburn, dysphagia. Musculoskeletal: No pain. Neuro: No headache, focal weakness, tremor. Skin: No rash. Otherwise negative. Allergies were reviewed and updated, and medications were reconciled with the patient. PHYSICAL EXAMINATION: BP (P) 108/68 Pulse 87 Resp 16 Ht 162.6 cm (5' 4 ) Wt 71.7 kg (158 lb) SpO2 98% BMI 27.12 kg/m Gen: No acute distress. Cooperative with examination. ENT: Oral hygeine and dentition good. Pharynx clear. No halitosis. No sign of oral thrush. Resp: No stridor, accessory respiratory muscle use, supra-sternal or intercostal retractions. No wheezes, crackles. CV: Regular rythm. Heart tones normal. Radial pulses normal. Abd: Non distended. MSK: No kyphoscoliosis. Ext: Warm and well perfused. No clubbing, cyanosis, edema. Skin: No rash, ecchymoses. Neuro: Mental status normal. Affect normal. No tremor. DATA REVIEW: Oximetry, 01/21/2022 Oximetry with Ambulation Test for This Encounter O2 Device O2 Adapter NC O2 Flow SpO2% HR Activity Ft Walked (ft) Time (min) Avg Speed (MPH) R/A 98 87 Resting R/A 87 109 Walking, usual pace 220 1.5 1.67 NC 2 98 89 Resting NC 2 98 107 Walking, usual pace 420 3 1.59 PFT, 05/22/2021 IMPRESSION: Spirometry indicates severe obstruction. Electronically Signed On 05-22-2021 15:59:55 EST by Jasmine Evangelista M.D. ASSESSMENT/PLAN: 1. Stage 3 severe COPD by GOLD classification (HCC) - ICD9: 496, ICD10: J44.9 (primary diagnosis) Symptomatically doing well on Trelegy. Albuterol HFA inhaler, 2 inhalations 10 15 minutes prior to activities associated with shortness of breath, and as needed for rescue relief of shortness of breath or wheezing, up to 4 times daily. Continue with supplemental oxygen. Based on oximetry today, patient is requiring 2L with exertion. Will check nocturnal oximetry. Up to date on annual influenza, pneumococcal and Covid 19 vaccines. - OXIMETRY - NOCTURNAL 2. Former smoker - ICD9: V15.82, ICD10: Z87.891 3. COVID-19 - ICD9: 079.89, ICD10: U07.1 - OXIMETRY - NOCTURNAL - CT CHEST WO IVCON 4. Lung nodules - ICD9: 793.19, ICD10: R91.8 Irregular 6-7 mm nodule anterior left upper lobe initially present on CTA chest 11/2019. CT chest 05/2020: stable CT chest 05/22/2021: stable left upper lobe nodule with new 6 mm nodular opacity in posterior aspect of the right upper lobe with surrounding ground glass Will obtain current CT chest. - CT CHEST WO IVCON I addressed the questions of the patient, and she expressed understanding and acceptance of my answers. Luna Chavira PA-C documented in this encounter [facility] 01-21-2022 Nurse Note Intake information documented in the prior visit with RANGEL Leone today. documented in this encounter [facility] 01-21-2022 Procedure note Associated Order(s): OXIMETRY WITH AMBULATION RESPIRATORY THERAPY OXIMETRY WITH AMBULATION Oximetry with Ambulation Test for This Encounter O2 Device O2 Adapter NC O2 Flow SpO2% HR Activity Ft Walked (ft) Time (min) Avg Speed (MPH) R/A 98 87 Resting R/A 87 109 Walking, usual pace 220 1.5 1.67 NC 2 98 89 Resting NC 2 98 107 Walking, usual pace 420 3 1.59 General Information Pulse Oximetry Site Total Time Spent O2 Supply Carrier Walking Assistance/Device Forehead 20 Trolley NAME: RANGEL Leone PATIENT NAME: Sneha Cardenas DATE: January 21, 2022 TIME: 3:19 PM Comment: documented in this encounter [facility] 01-21-2022 History of Presen t illness Narrative PULM FUNCTION SMARTBLOCK: Provider: Luna Chavira PA-C Assisting Tech: RANGEL Leone Oximetry - Ambulation: 1 documented in this encounter [facility] 01-08-2022 Miscellaneous Notes Order placed Spoke with patient. We will do updated oximetry on 01/21 at her office visit to confirm need and then contact [employer]. Please place order. Abimbola Lewis LPN Patient called in stating she received a letter from [employer] stating they need more information to get her supplies and oxygen covered. She asked that the office reach out to [employer] at [phone] to give more information. documented in this encounter [facility] 11-12-2021 History of Presen t illness Narrative SUBJECTIVE: SHINGRIX VACCINE(1 of 2) Never done ADVANCE DIRECTIVE DISCUSSION Never done HPI Sneha Cardenas is a 66 year old female. PMH signicant for ACTIVE PROBLEM LIST Essential Tremor Environmental Allergies Copd With Asthma (Hcc) Hyperlipidemia Age-Related Osteoporosis Without Current Pathological Fracture PCP: Julio Draper MD Presents today with report of vertigo and low back pain. Seen at [facility] for increased shortness of breath and dizziness on 11/02/2021 D-dimer elevated. CTA chest completed to exclude PE.No evidence of pulmonary embolism. Findings suggestive of mild scarring at the lung bases. She was treated with burst course of prednisone. Noted if breathing not improving then follow-up with her hat presser. Dizziness abated while in ER with treatment, determined to be vertigo. Treated with diazepam and Zofran in the ER. If recurrent she was advised to follow-up with primary care or ear nose and throat physician. Labs: D-dimer elevated otherwise unremarkable. Today reports no current vertigo. Notes positional dizziness only now which is chronic and unchanged from usual. She notes shortness of breath improved back to baseline. She noted using oxygen as needed Tuesday and Tuesday, not needed over the last 2 to [address] Kent hat presser COPD and asthma. She reports having nausea and vomiting with vertigo all now resolved. Had crampy back pain associated with loose stools, 3 to 4/day, relieved with BM, now resolved. Previously had back pain treated with flexeril. Prior kidney stones no prior UTI symptoms: none Fever:None Review of Systems Respiratory: Positive for shortness of breath. Gastrointestinal: Positive for diarrhea. Musculoskeletal: Positive for back pain. Neurological: Positive for dizziness. Objective BP 130/80 Pulse 80 Resp 16 Wt 71.2 kg (157 lb) BMI 26.95 kg/m Physical Exam Vitals and nursing note reviewed. Constitutional: Appearance: Normal appearance. HENT: Head: Normocephalic and atraumatic. Eyes: Conjunctiva/sclera: Conjunctivae normal. Cardiovascular: Rate and Rhythm: Normal rate and regular rhythm. Pulmonary: Effort: Pulmonary effort is normal. Breath sounds: Normal breath sounds. Abdominal: General: Bowel sounds are normal. Palpations: Abdomen is soft. Musculoskeletal: Lumbar back: No tenderness or bony tenderness. Normal range of motion. Negative right straight leg raise test and negative left straight leg raise test. Skin: General: Skin is warm and dry. Neurological: General: No focal deficit present. Mental Status: She is alert. ALLERGIES Allergen Reactions Keflex [Cephalexin] Intolerance Tachycardia, palpitations. MEDICATIONS ondansetron orally disintegrating (ZOFRAN ODT) 4 mg disintegrating tablet, EVERY 6 HOURS NEEDED diazePAM (VALIUM) 5 mg tablet, TAKE 1 TABLET BY MOUTH EVERY EIGHT hours fluticasone (FLONASE) 50 mcg/actuation nasal spray, Use 1 Lavaca in each nostril once daily. montelukast (SINGULAIR) 10 mg tablet, Take 1 tablet by mouth daily at bedtime. kunhxuaycg-alhbmuaq-hblwyofeky (BREZTRI AEROSPHERE) 160-9-4.8 mcg/actuation HFA aerosol inhaler, Inhale 2 Puffs as instructed twice daily. ipratropium-albuterol (DUONEB) 0.5 mg-3 mg(2.5 mg base)/3 mL nebu, Inhale 3 mL as instructed every 4 hours as needed for wheezing/shortness of breath. albuterol HFA (PROAIR HFA) 90 mcg/actuation inhaler, Inhale 2 Puffs as instructed every 4 hours as needed. albuterol (PROVENTIL) 2.5 mg /3 mL (0.083 %) nebulizer solution, Use 3 mL via nebulizer every 6 hours as needed for Wheezing/Shortness of Breath. 1 vial contains 3 ml. alendronate (FOSAMAX) 70 mg tablet, Take 1 tablet by mouth one time a week. Take with a full glass of water, on an empty stomach; do NOT lie down for 30minutes. PAST MEDICAL HISTORY Diagnosis Date Asthma Benign essential tremor COPD (chronic obstructive pulmonary disease) ([facility]) 07/25/2012 FEV1 0.84L (32%), 10/18/2014 DDD (degenerative disc disease), cervical 08/15/2015 Environmental allergies Wheezes with hay or dust Essential and other specified forms of tremor 11/02/2007 Benign essential -- started primidone 06/03/09, Dr. Nguyễn Essential hypertension, benign 05/17/2011 History of colon polyps 2009 Tubular adenoma. Hypertension Irritable bowel syndrome Migraine headache Improved with primidone Scoliosis Snoring Tobacco use disorder Quit 03/04/2015. Unspecified gastritis and gastroduodenitis without mention of hemorrhage 02/09/2010 Small ulcer on EGD 2009 Social History Tobacco Use Smoking status: Former Smoker Packs/day: 0.50 Years: 34.00 Pack years: 17.00 Types: Cigarettes Start date: 1974 Quit date: 05/23/2016 Years since quittin.4 Smokeless tobacco: Never Used Tobacco comment: Resumed short period. Quit for good 05/2016. Vaping Use Vaping Use: Never used Substance Use Topics Alcohol use: No Drug use: No ASSESSMENT/PLAN: 1. Acute right-sided low back pain without sciatica - ICD9: 724.2, ICD10: M54.50 (primary diagnosis) Note she had diarrhea and back pain relieved with BMs. Resolved 2. Vertigo - ICD9: 780.4, ICD10: R42 She notes is persisted for couple more days then resolved 3. Post-nasal drip - ICD9: 784.91, ICD10: R09.82 She notes her head feels heavy, is taking allergy medicines. - FLUTICASONE PROPIONATE 50 MCG/ACTUATION NASAL SPRAY,SUSPENSION 4. Environmental allergies - ICD9: V15.09, ICD10: Z91.09 - MONTELUKAST 10 MG TABLET 5. COPD with asthma ([facility]) - ICD9: 493.20, ICD10: J44.9 Continue current treatment, schedule follow-up with pulmonology. - CONSULT TO PULM/CRITICAL CARE Asia Jiménez APRN.CNS Medical Decision Making: Problems: Low: Acute, uncomplicated illness or injury Risk: Moderate: Drug management Medical Decision Making Level: 3 - Low documented in this encounter [facility] 11-02-2021 History of Presen t illness Narrative Subjective HPI Sneha Cardenas is a 66 year old female who presents with shortness of breath and cough. States this morning she was in the shower and got extremely lightheaded, short of breath and was coughing, started vomiting and had to sit down. She had 3 episodes of vomiting. She states her shortness of breath has persisted and has gotten worse. She has a history of COVID in 2020. Patient has the following risk factors for PE: Age > 50 yrs SpO2 < 90% History of COVID in Review of Systems Constitutional: Negative for chills and fever. Respiratory: Positive for cough and shortness of breath. Negative for sputum production. Cardiovascular: Negative for chest pain. Neurological: Positive for dizziness. BP 132/94 Pulse 91 Temp 36.7 C (98.1 F) Resp 22 Wt 71.4 kg (157 lb 6.4 oz) SpO2 90% BMI 27.02 kg/m PAST MEDICAL HISTORY Diagnosis Date Asthma Benign essential tremor COPD (chronic obstructive pulmonary disease) (HCC) 07/25/2012 FEV1 0.84L (32%), 10/18/2014 DDD (degenerative disc disease), cervical 08/15/2015 Environmental allergies Wheezes with hay or dust Essential and other specified forms of tremor 11/02/2007 Benign essential -- started primidone 06/03/09, Dr. Nguyễn Essential hypertension, benign 05/17/2011 History of colon polyps 2009 Tubular adenoma. Hypertension Irritable bowel syndrome Migraine headache Improved with primidone Scoliosis Snoring Tobacco use disorder Quit 03/04/2015. Unspecified gastritis and gastroduodenitis without mention of hemorrhage 02/09/2010 Small ulcer on EGD 2009 PAST SURGICAL HISTORY Procedure Laterality Date ARTHROPLASTY TOTAL SHOULDER Right 02/2018 [facility]. Garo Stanford MD BREAST BIOPSY Left 30 yrs. COLONOSCOPY FLX DX W/COLLJ SPEC WHEN PFRMD 08/18/2012 normal colon - 10 year follow up COLONOSCOPY W/BIOPSY SINGLE/MULTIPLE 02/09/2010 lymphoid aggrigates at cecum, o/w normal EGD TRANSORAL BIOPSY SINGLE/MULTIPLE 02/09/2010 Gastritis/gastric ulcer/duodenitis EGD TRANSORAL BIOPSY SINGLE/MULTIPLE 08/18/2012 gastritis LAPS SURG CHOLECYSTECTOMY W/CHOLANGIOGRAPHY 12/12/2007 Normal IOC PAST SURGICAL HISTORY OF multiple several tubal pregnancies, tubes both removed over several surgeries PAST SURGICAL HISTORY OF 1993 left inguinal hernia with mesh PAST SURGICAL HISTORY OF 1989 Hemorrhoid surgery x2 ALLERGIES Keflex [Cephalexin] MEDICATIONS montelukast (SINGULAIR) 10 mg tablet Take 1 tablet by mouth daily at bedtime. dadfnbapuw-ghjmzgxo-gejvrsgfws (BREZTRI AEROSPHERE) 160-9-4.8 mcg/actuation HFA aerosol inhaler Inhale 2 Puffs as instructed twice daily. ipratropium-albuterol (DUONEB) 0.5 mg-3 mg(2.5 mg base)/3 mL nebu Inhale 3 mL as instructed every 4 hours as needed for wheezing/shortness of breath. albuterol HFA (PROAIR HFA) 90 mcg/actuation inhaler Inhale 2 Puffs as instructed every 4 hours as needed. fluticasone (FLONASE) 50 mcg/actuation nasal spray Use 1 Lavaca in each nostril once daily. albuterol (PROVENTIL) 2.5 mg /3 mL (0.083 %) nebulizer solution Use 3 mL via nebulizer every 6 hours as needed for Wheezing/Shortness of Breath. 1 vial contains 3 ml. alendronate (FOSAMAX) 70 mg tablet Take 1 tablet by mouth one time a week. Take with a full glass of water, on an empty stomach; do NOT lie down for 30minutes. FAMILY HISTORY Adopted: Yes Problem Relation Age of Onset Scoliosis Daughter Natural daughter. Social History Tobacco Use Smoking status: Former Smoker Packs/day: 0.50 Years: 34.00 Pack years: 17.00 Types: Cigarettes Start date: 1973 Quit date: 05/23/2016 Years since quittin.4 Smokeless tobacco: Never Used Tobacco comment: Resumed short period. Quit for good 05/2016. Vaping Use Vaping Use: Never used Substance Use Topics Alcohol use: No Drug use: No Objective Physical Exam Vitals and nursing note reviewed. Constitutional: Appearance: Normal appearance. Cardiovascular: Rate and Rhythm: Normal rate and regular rhythm. Heart sounds: Normal heart sounds. Pulmonary: Effort: Pulmonary effort is normal. No respiratory distress. Breath sounds: Normal breath sounds. No wheezing or rales. Neurological: Mental Status: She is alert. ASSESSMENT/PLAN: 1. Cough - ICD9: 786.2, ICD10: R05.9 (primary diagnosis) - XR CHEST 2V FRONTAL/LAT. My reading: negative. Radiologist IMPRESSION: No acute radiographic abnormality. Cushion Maker: JING Transcribe Date/Time: Nov 02 2021 12:07P Dictated by : IBRAHIMA ANGELES MD 2. SOB (shortness of breath) - ICD9: 786.05, ICD10: R06.02 - referred to ER. Patient states she is very concerned about this shortness of breath and does not feel normal. Due to history of COVID should rule out PE. Offered further evaluation here or referral to ER, patient will go to ER. Report sent to [facility] via ER [facility]. Rachel Mayo APRN.MARIAN documented in this encounter [facility] 10-14-2021 Instructions Ev Hinkle APRN.MARIAN - 10/14/2021 10:47 AM EDT Ear Infection The inside or outside of your ear can become infected. If your outer ear or ear canal is swollen and infected, you have an outer ear infection. Your ear may itch or be red and swollen. Your ear may hurt or have drainage as well. This infection happens if germs enter your ears and cause a problem. This is more likely to happen if you have a wound in your ear. It can also happen if there is something in your ear or if your ear is wet for a long time. You may have signs a few days after swimming. This is why outer ear infections are often called swimmers ear. Long-term outer ear infections may be caused by: Allergic reaction Skin problems, such as eczema or psoriasis Chronic middle ear infections What care is needed at home? Ask your doctor what you need to do when you go home. Make sure you ask questions if you do not understand what the doctor says. This way you will know what you need to do. Take your drugs as ordered by your doctor. Be sure to treat an infection right away. This will help to keep it from spreading to other parts of your ear. Heat may help ease your ear pain. If your doctor tells you to use heat, put a heating pad or hot water bottle on your ear for no more than 20 minutes at a time. Never go to sleep with a heating pad on as this can cause blake. What follow-up care is needed? Your doctor may ask you to make visits to the office to check on your progress. Be sure to keep these visits. What problems could happen? Very bad infection Hearing problems What can be done to prevent this health problem? Keep your ears dry: Use a bathing cap or ear plugs when swimming. Use a towel to dry your ears when they are wet. Do not swim in dirty or polluted water. Avoid getting soap or other items in your ears. Do not scratch your ears. Do not put swabs or other objects in your ears. When do I need to call the doctor? Signs of infection. These include a fever of 100.4 F (38 C) or higher, chills, very bad sore throat, ear or sinus pain. Signs get worse You feel pain and there is redness of the bone behind your ear Drugs you are taking are not working for you Health problem is not better or you are feeling worse Helpful tips Talk to your doctor to see if there are drops you can use to help prevent the growth of germs. Outer ear infections are not contagious, but need treatment. documented in this encounter [facility] 10-14-2021 History of Presen t illness Narrative Subjective Patient came in with complains of both ears feeling clogged. Patient said left one started a week ago and right one started yesterday. Patient said she has always had trouble with ear wax build up and needed them flushed. patient said it feels the same. The history is provided by the patient. No rn provider relations was used. Ear Problem Review of Systems Constitutional: Negative. HENT: Positive for ear pain. Skin: Negative. Objective Physical Exam Constitutional: Appearance: Normal appearance. HENT: Right Ear: Hearing normal. There is impacted cerumen. Left Ear: Hearing normal. There is impacted cerumen. Cardiovascular: Rate and Rhythm: Normal rate and regular rhythm. Heart sounds: Normal heart sounds. Pulmonary: Effort: Pulmonary effort is normal. Breath sounds: Normal breath sounds. Neurological: Mental Status: She is alert. Ear recheck: erythema and bulging of tympanic membrane on left side and right is within normal limits. PAST MEDICAL HISTORY Diagnosis Date Asthma Benign essential tremor COPD (chronic obstructive pulmonary disease) ([facility]) 07/25/2012 FEV1 0.84L (32%), 10/18/2014 DDD (degenerative disc disease), cervical 08/15/2015 Environmental allergies Wheezes with hay or dust Essential and other specified forms of tremor 11/02/2007 Benign essential -- started primidone 06/03/09, Dr. Nguyễn Essential hypertension, benign 05/17/2011 History of colon polyps 2009 Tubular adenoma. Hypertension Irritable bowel syndrome Migraine headache Improved with primidone Scoliosis Snoring Tobacco use disorder Quit 03/04/2015. Unspecified gastritis and gastroduodenitis without mention of hemorrhage 02/09/2010 Small ulcer on EGD 2009 PAST SURGICAL HISTORY Procedure Laterality Date ARTHROPLASTY TOTAL SHOULDER Right 02/2018 [facility]. Garo Stanford MD BREAST BIOPSY Left 30 yrs. COLONOSCOPY FLX DX W/COLLJ SPEC WHEN PFRMD 08/18/2012 normal colon - 10 year follow up COLONOSCOPY W/BIOPSY SINGLE/MULTIPLE 02/09/2010 lymphoid aggrigates at cecum, o/w normal EGD TRANSORAL BIOPSY SINGLE/MULTIPLE 02/09/2010 Gastritis/gastric ulcer/duodenitis EGD TRANSORAL BIOPSY SINGLE/MULTIPLE 08/18/2012 gastritis LAPS SURG CHOLECYSTECTOMY W/CHOLANGIOGRAPHY 12/12/2007 Normal IOC PAST SURGICAL HISTORY OF multiple several tubal pregnancies, tubes both removed over several surgeries PAST SURGICAL HISTORY OF 1993 left inguinal hernia with mesh PAST SURGICAL HISTORY OF 1989 Hemorrhoid surgery x2 ALLERGIES Keflex [Cephalexin] MEDICATIONS alendronate (FOSAMAX) 70 mg tablet Take 1 tablet by mouth one time a week. Take with a full glass of water, on an empty stomach; do NOT lie down for 30minutes. montelukast (SINGULAIR) 10 mg tablet Take 1 tablet by mouth daily at bedtime. luamlihktm-vtbgawux-fiwonkelso (BREZTRI AEROSPHERE) 160-9-4.8 mcg/actuation HFA aerosol inhaler Inhale 2 Puffs as instructed twice daily. ipratropium-albuterol (DUONEB) 0.5 mg-3 mg(2.5 mg base)/3 mL nebu Inhale 3 mL as instructed every 4 hours as needed for wheezing/shortness of breath. albuterol HFA (PROAIR HFA) 90 mcg/actuation inhaler Inhale 2 Puffs as instructed every 4 hours as needed. fluticasone (FLONASE) 50 mcg/actuation nasal spray Use 1 [place] in each nostril once daily. albuterol (PROVENTIL) 2.5 mg /3 mL (0.083 %) nebulizer solution Use 3 mL via nebulizer every 6 hours as needed for Wheezing/Shortness of Breath. 1 vial contains 3 ml. FAMILY HISTORY Adopted: Yes Problem Relation Age of Onset Scoliosis Daughter Natural daughter. Social History Tobacco Use Smoking status: Former Smoker Packs/day: 0.50 Years: 34.00 Pack years: 17.00 Types: Cigarettes Start date: 1974 Quit date: 05/23/2016 Years since quittin.3 Smokeless tobacco: Never Used Tobacco comment: Resumed short period. Quit for good 05/2016. Vaping Use Vaping Use: Never used Substance Use Topics Alcohol use: No Drug use: No ASSESSMENT/PLAN: 1. Bilateral impacted cerumen - ICD9: 380.4, ICD10: H61.23 Patient had bilateral ear flushed successfully. Patient denies any pain or complications this time. patient stated she feels better but a little dizzy. Ev Hinkle APRN.MARIAN documented in this encounter [facility] documented as of this encounter (statuses as of 10/14/2021) [facility] History of Past illness Narrative* Problem Noted Date Resolved Date Essential hypertension, benign 06/03/2016 0 08/29/2017 Cervical disc disorder with radiculopathy 201502/10/2017 DDD (degenerative disc disease), cervical 201502/10/2017 Essential hypertension, benign 05/17/2011 0 07/15/2015 Unspecified gastritis and ga stroduodenitis without mention of hemorrhage 02/09/2010 07/15/2015 Overview: Small ulcer on EGD 2009 Blood in stool 02/09/2010 07/20/2012 Loss of weight 02/09/2010 07/20/2012 Hemorrhage of gastrointestinal tract, unspecifie d 02/09/2010 07/15/2015 Acute gastritis without mention of hemorrhage 07/20/2012 Other specified disorder of gallbladder 12/11/19 08 07/20/2012 Tobacco use disorder 11/02/2007 02/10/2017 Overview: Since age 19 Migraine headache 07/15/2015 Overview: improved with primidone Irritable bowel syndrome 016 Scoliosis 02/10/2017 History of colon polyps 07/15/19 16 Overview: 2009 tubular adenoma Asthma 02/15/2019 documented as of this encounter (statuses as of 11/02/2021) [facility] History of Past illness Narrative* Problem Noted Date Resolved Date Essential hypertension, benign 06/03/2016 0 08/29/2017 Cervical disc disorder with radiculopathy 201502/10/2017 DDD (degenerative disc disease), cervical 201502/10/2017 Essential hypertension, benign 05/17/2011 0 07/15/2015 Unspecified gastritis and ga stroduodenitis without mention of hemorrhage 02/09/2010 07/15/2015 Overview: Small ulcer on EGD 2009 Blood in stool 02/09/2010 07/20/2012 Loss of weight 02/09/2010 07/20/2012 Hemorrhage of gastrointestinal tract, unspecifie d 02/09/2010 07/15/2015 Acute gastritis without mention of hemorrhage 07/20/2012 Other specified disorder of gallbladder 12/11/19 08 07/20/2012 Tobacco use disorder 11/02/2007 02/10/2017 Overview: Since age 19 Migraine headache 07/15/2015 Overview: improved with primidone Irritable bowel syndrome 016 Scoliosis 02/10/2017 History of colon polyps 07/15/19 16 Overview: 2009 tubular adenoma Asthma 02/15/2019 documented as of this encounter (statuses as of 11/12/2021) [facility] History of Past illness Narrative* Problem Noted Date Resolved Date Essential hypertension, benign 06/03/2016 0 08/29/2017 Cervical disc disorder with radiculopathy 201502/10/2017 DDD (degenerative disc disease), cervical 201502/10/2017 Essential hypertension, benign 05/17/2011 0 07/15/2015 Unspecified gastritis and ga stroduodenitis without mention of hemorrhage 02/09/2010 07/15/2015 Overview: Small ulcer on EGD 2009 Blood in stool 02/09/2010 07/20/2012 Loss of weight 02/09/2010 07/20/2012 Hemorrhage of gastrointestinal tract, unspecifie d 02/09/2010 07/15/2015 Acute gastritis without mention of hemorrhage 07/20/2012 Other specified disorder of gallbladder 12/11/19 08 07/20/2012 Tobacco use disorder 11/02/2007 02/10/2017 Overview: Since age 19 Migraine headache 07/15/2015 Overview: improved with primidone Irritable bowel syndrome 016 Scoliosis 02/10/2017 History of colon polyps 07/15/19 16 Overview: 2010 tubular adenoma Asthma 02/15/2019 documented as of this encounter (statuses as of 01/08/2022) [facility] History of Past illness Narrative* Problem Noted Date Resolved Date Essential hypertension, benign 06/03/2016 0 08/29/2017 Cervical disc disorder with radiculopathy 201502/10/2017 DDD (degenerative disc disease), cervical 201502/10/2017 Essential hypertension, benign 05/17/2011 0 07/15/2015 Unspecified gastritis and ga stroduodenitis without mention of hemorrhage 02/09/2010 07/15/2015 Overview: Small ulcer on EGD 2009 Blood in stool 02/09/2010 07/20/2012 Loss of weight 02/09/2010 07/20/2012 Hemorrhage of gastrointestinal tract, unspecifie d 02/09/2010 07/15/2015 Acute gastritis without mention of hemorrhage 07/20/2012 Other specified disorder of gallbladder 12/11/19 08 07/20/2012 Tobacco use disorder 11/02/2007 02/10/2017 Overview: Since age 19 Migraine headache 07/15/2015 Overview: improved with primidone Irritable bowel syndrome 016 Scoliosis 02/10/2017 History of colon polyps 07/15/19 16 Overview: 2009 tubular adenoma Asthma 02/15/2019 documented as of this encounter (statuses as of 01/21/2022) [facility] History of Past illness Narrative* Problem Noted Date Resolved Date Essential hypertension, benign 06/03/2016 0 08/29/2017 Cervical disc disorder with radiculopathy 201502/10/2017 DDD (degenerative disc disease), cervical 201502/10/2017 Essential hypertension, benign 05/17/2011 0 07/15/2015 Unspecified gastritis and ga stroduodenitis without mention of hemorrhage 02/09/2010 07/15/2015 Overview: Small ulcer on EGD 2009 Blood in stool 02/09/2010 07/20/2012 Loss of weight 02/09/2010 07/20/2012 Hemorrhage of gastrointestinal tract, unspecifie d 02/09/2010 07/15/2015 Acute gastritis without mention of hemorrhage 07/20/2012 Other specified disorder of gallbladder 12/11/19 08 07/20/2012 Tobacco use disorder 11/02/2007 02/10/2017 Overview: Since age 19 Migraine headache 07/15/2015 Overview: improved with primidone Irritable bowel syndrome 016 Scoliosis 02/10/2017 History of colon polyps 07/15/19 16 Overview: 2009 tubular adenoma Asthma 02/15/2019 documented as of this encounter (statuses as of 01/21/2022) [facility] History of Past illness Narrative* Problem Noted Date Resolved Date Essential hypertension, benign 06/03/2016 0 08/29/2017 Cervical disc disorder with radiculopathy 201502/10/2017 DDD (degenerative disc disease), cervical 201502/10/2017 Essential hypertension, benign 05/17/2011 0 07/15/2015 Unspecified gastritis and ga stroduodenitis without mention of hemorrhage 02/09/2010 07/15/2015 Overview: Small ulcer on EGD 2009 Blood in stool 02/09/2010 07/20/2012 Loss of weight 02/09/2010 07/20/2012 Hemorrhage of gastrointestinal tract, unspecifie d 02/09/2010 07/15/2015 Acute gastritis without mention of hemorrhage 07/20/2012 Other specified disorder of gallbladder 12/11/19 08 07/20/2012 Tobacco use disorder 11/02/2007 02/10/2017 Overview: Since age 19 Migraine headache 07/15/2015 Overview: improved with primidone Irritable bowel syndrome 016 Scoliosis 02/10/2017 History of colon polyps 07/15/19 16 Overview: 2010 tubular adenoma Asthma 02/15/2019 documented as of this encounter (statuses as of 01/28/2022) [facility] History of Past illness Narrative* Problem Noted Date Resolved Date Essential hypertension, benign 06/03/2016 0 08/29/2017 Cervical disc disorder with radiculopathy 201502/10/2017 DDD (degenerative disc disease), cervical 201502/10/2017 Essential hypertension, benign 05/17/2011 0 07/15/2015 Unspecified gastritis and ga stroduodenitis without mention of hemorrhage 02/09/2010 07/15/2015 Overview: Small ulcer on EGD 2009 Blood in stool 02/09/2010 07/20/2012 Loss of weight 02/09/2010 07/20/2012 Hemorrhage of gastrointestinal tract, unspecifie d 02/09/2010 07/15/2015 Acute gastritis without mention of hemorrhage 07/20/2012 Other specified disorder of gallbladder 12/11/19 08 07/20/2012 Tobacco use disorder 11/02/2007 02/10/2017 Overview: Since age 19 Migraine headache 07/15/2015 Overview: improved with primidone Irritable bowel syndrome 016 Scoliosis 02/10/2017 History of colon polyps 07/15/19 16 Overview: 2009 tubular adenoma Asthma 02/15/2019 documented as of this encounter (statuses as of 04/21/2022) [facility] History of Past illness Narrative* Problem Noted Date Resolved Date Essential hypertension, benign 06/03/2016 0 08/29/2017 Cervical disc disorder with radiculopathy 201502/10/2017 DDD (degenerative disc disease), cervical 201502/10/2017 Essential hypertension, benign 05/17/2011 0 07/15/2015 Unspecified gastritis and ga stroduodenitis without mention of hemorrhage 02/09/2010 07/15/2015 Overview: Small ulcer on EGD 2009 Blood in stool 02/09/2010 07/20/2012 Loss of weight 02/09/2010 07/20/2012 Hemorrhage of gastrointestinal tract, unspecifie d 02/09/2010 07/15/2015 Acute gastritis without mention of hemorrhage 07/20/2012 Other specified disorder of gallbladder 12/11/19 08 07/20/2012 Tobacco use disorder 11/02/2007 02/10/2017 Overview: Since age 19 Migraine headache 07/15/2015 Overview: improved with primidone Irritable bowel syndrome 016 Scoliosis 02/10/2017 History of colon polyps 07/15/19 16 Overview: 2009 tubular adenoma Asthma 02/15/2019 documented as of this encounter (statuses as of 04/22/2022) [facility] History of Past illness Narrative* Problem Noted Date Resolved Date Essential hypertension, benign 06/03/2016 0 08/29/2017 Cervical disc disorder with radiculopathy 201502/10/2017 DDD (degenerative disc disease), cervical 201502/10/2017 Essential hypertension, benign 05/17/2011 0 07/15/2015 Unspecified gastritis and ga stroduodenitis without mention of hemorrhage 02/09/2010 07/15/2015 Overview: Small ulcer on EGD 2009 Blood in stool 02/09/2010 07/20/2012 Loss of weight 02/09/2010 07/20/2012 Hemorrhage of gastrointestinal tract, unspecifie d 02/09/2010 07/15/2015 Acute gastritis without mention of hemorrhage 07/20/2012 Other specified disorder of gallbladder 12/11/19 08 07/20/2012 Tobacco use disorder 11/02/2007 02/10/2017 Overview: Since age 19 Migraine headache 07/15/2015 Overview: improved with primidone Irritable bowel syndrome 016 Scoliosis 02/10/2017 History of colon polyps 07/15/19 16 Overview: 2010 tubular adenoma Asthma 02/15/2019 documented as of this encounter (statuses as of 04/22/2022) [facility] History of Past illness Narrative* Problem Noted Date Resolved Date Essential hypertension, benign 06/03/2016 0 08/29/2017 Cervical disc disorder with radiculopathy 201502/10/2017 DDD (degenerative disc disease), cervical 201502/10/2017 Essential hypertension, benign 05/17/2011 0 07/15/2015 Unspecified gastritis and ga stroduodenitis without mention of hemorrhage 02/09/2010 07/15/2015 Overview: Small ulcer on EGD 2009 Blood in stool 02/09/2010 07/20/2012 Loss of weight 02/09/2010 07/20/2012 Hemorrhage of gastrointestinal tract, unspecifie d 02/09/2010 07/15/2015 Acute gastritis without mention of hemorrhage 07/20/2012 Other specified disorder of gallbladder 12/11/19 08 07/20/2012 Tobacco use disorder 11/02/2007 02/10/2017 Overview: Since age 19 Migraine headache 07/15/2015 Overview: improved with primidone Irritable bowel syndrome 016 Scoliosis 02/10/2017 History of colon polyps 07/15/19 16 Overview: 2009 tubular adenoma Asthma 02/15/2019 documented as of this encounter (statuses as of 05/03/2022) [facility] History of Past illness Narrative* Problem Noted Date Resolved Date Essential hypertension, benign 06/03/2016 0 08/29/2017 Cervical disc disorder with radiculopathy 201502/10/2017 DDD (degenerative disc disease), cervical 201502/10/2017 Essential hypertension, benign 05/17/2011 0 07/15/2015 Unspecified gastritis and ga stroduodenitis without mention of hemorrhage 02/09/2010 07/15/2015 Overview: Small ulcer on EGD 2009 Blood in stool 02/09/2010 07/20/2012 Loss of weight 02/09/2010 07/20/2012 Hemorrhage of gastrointestinal tract, unspecifie d 02/09/2010 07/15/2015 Acute gastritis without mention of hemorrhage 07/20/2012 Other specified disorder of gallbladder 12/11/19 08 07/20/2012 Tobacco use disorder 11/02/2007 02/10/2017 Overview: Since age 19 Migraine headache 07/15/2015 Overview: improved with primidone Irritable bowel syndrome 016 Scoliosis 02/10/2017 History of colon polyps 07/15/19 16 Overview: 2009 tubular adenoma Asthma 02/15/2019 documented as of this encounter (statuses as of 05/31/2022) [facility] History of Past illness Narrative* Problem Noted Date Resolved Date Essential hypertension, benign 06/03/2016 0 08/29/2017 Cervical disc disorder with radiculopathy 201502/10/2017 DDD (degenerative disc disease), cervical 201502/10/2017 Essential hypertension, benign 05/17/2011 0 07/15/2015 Unspecified gastritis and ga stroduodenitis without mention of hemorrhage 02/09/2010 07/15/2015 Overview: Small ulcer on EGD 2009 Blood in stool 02/09/2010 07/20/2012 Loss of weight 02/09/2010 07/20/2012 Hemorrhage of gastrointestinal tract, unspecifie d 02/09/2010 07/15/2015 Acute gastritis without mention of hemorrhage 07/20/2012 Other specified disorder of gallbladder 12/11/19 08 07/20/2012 Tobacco use disorder 11/02/2007 02/10/2017 Overview: Since age 19 Migraine headache 07/15/2015 Overview: improved with primidone Irritable bowel syndrome 016 Scoliosis 02/10/2017 History of colon polyps 07/15/19 16 Overview: 2010 tubular adenoma Asthma 02/15/2019 documented as of this encounter (statuses as of 05/31/2022) [facility] History of Past illness Narrative* Problem Noted Date Resolved Date Essential hypertension, benign 06/03/2016 0 08/29/2017 Cervical disc disorder with radiculopathy 201502/10/2017 DDD (degenerative disc disease), cervical 201502/10/2017 Essential hypertension, benign 05/17/2011 0 07/15/2015 Unspecified gastritis and ga stroduodenitis without mention of hemorrhage 02/09/2010 07/15/2015 Overview: Small ulcer on EGD 2009 Blood in stool 02/09/2010 07/20/2012 Loss of weight 02/09/2010 07/20/2012 Hemorrhage of gastrointestinal tract, unspecifie d 02/09/2010 07/15/2015 Acute gastritis without mention of hemorrhage 07/20/2012 Other specified disorder of gallbladder 12/11/19 08 07/20/2012 Tobacco use disorder 11/02/2007 02/10/2017 Overview: Since age 19 Migraine headache 07/15/2015 Overview: improved with primidone Irritable bowel syndrome 016 Scoliosis 02/10/2017 History of colon polyps 07/15/19 16 Overview: 2009 tubular adenoma Asthma 02/15/2019 documented as of this encounter (statuses as of 06/14/2022) [facility] History of Past illness Narrative* Problem Noted Date Resolved Date Essential hypertension, benign 06/03/2016 0 08/29/2017 Cervical disc disorder with radiculopathy 201502/10/2017 DDD (degenerative disc disease), cervical 201502/10/2017 Essential hypertension, benign 05/17/2011 0 07/15/2015 Unspecified gastritis and ga stroduodenitis without mention of hemorrhage 02/09/2010 07/15/2015 Overview: Small ulcer on EGD 2009 Blood in stool 02/09/2010 07/20/2012 Loss of weight 02/09/2010 07/20/2012 Hemorrhage of gastrointestinal tract, unspecifie d 02/09/2010 07/15/2015 Acute gastritis without mention of hemorrhage 07/20/2012 Other specified disorder of gallbladder 12/11/19 08 07/20/2012 Tobacco use disorder 11/02/2007 02/10/2017 Overview: Since age 19 Migraine headache 07/15/2015 Overview: improved with primidone Irritable bowel syndrome 016 Scoliosis 02/10/2017 History of colon polyps 07/15/19 16 Overview: 2009 tubular adenoma Asthma 02/15/2019 documented as of this encounter (statuses as of 08/02/2022) [facility] History of Past illness Narrative* Problem Noted Date Resolved Date Essential hypertension, benign 06/03/2016 0 08/29/2017 Cervical disc disorder with radiculopathy 201502/10/2017 DDD (degenerative disc disease), cervical 201502/10/2017 Essential hypertension, benign 05/17/2011 0 07/15/2015 Unspecified gastritis and ga stroduodenitis without mention of hemorrhage 02/09/2010 07/15/2015 Overview: Small ulcer on EGD 2009 Blood in stool 02/09/2010 07/20/2012 Loss of weight 02/09/2010 07/20/2012 Hemorrhage of gastrointestinal tract, unspecifie d 02/09/2010 07/15/2015 Acute gastritis without mention of hemorrhage 07/20/2012 Other specified disorder of gallbladder 12/11/19 08 07/20/2012 Tobacco use disorder 11/02/2007 02/10/2017 Overview: Since age 19 Migraine headache 07/15/2015 Overview: improved with primidone Irritable bowel syndrome 016 Scoliosis 02/10/2017 History of colon polyps 07/15/19 16 Overview: 2009 tubular adenoma Asthma 02/15/2019 documented as of this encounter (statuses as of 09/10/2022) [facility] History of Past illness Narrative* Problem Noted Date Resolved Date Essential hypertension, benign 06/03/2016 0 08/29/2017 Cervical disc disorder with radiculopathy 201502/10/2017 DDD (degenerative disc disease), cervical 201502/10/2017 Essential hypertension, benign 05/17/2011 0 07/15/2015 Unspecified gastritis and ga stroduodenitis without mention of hemorrhage 02/09/2010 07/15/2015 Overview: Small ulcer on EGD 2009 Blood in stool 02/09/2010 07/20/2012 Loss of weight 02/09/2010 07/20/2012 Hemorrhage of gastrointestinal tract, unspecifie d 02/09/2010 07/15/2015 Acute gastritis without mention of hemorrhage 07/20/2012 Other specified disorder of gallbladder 12/11/19 08 07/20/2012 Tobacco use disorder 11/02/2007 02/10/2017 Overview: Since age 19 Migraine headache 07/15/2015 Overview: improved with primidone Irritable bowel syndrome 016 Scoliosis 02/10/2017 History of colon polyps 07/15/19 16 Overview: 2009 tubular adenoma Asthma 02/15/2019 documented as of this encounter (statuses as of 10/11/2022) [facility] History of Past illness Narrative* Problem Noted Date Resolved Date Essential hypertension, benign 06/03/2016 0 08/29/2017 Cervical disc disorder with radiculopathy 201502/10/2017 DDD (degenerative disc disease), cervical 201502/10/2017 Essential hypertension, benign 05/17/2011 0 07/15/2015 Unspecified gastritis and ga stroduodenitis without mention of hemorrhage 02/09/2010 07/15/2015 Overview: Small ulcer on EGD 2009 Blood in stool 02/09/2010 07/20/2012 Loss of weight 02/09/2010 07/20/2012 Hemorrhage of gastrointestinal tract, unspecifie d 02/09/2010 07/15/2015 Acute gastritis without mention of hemorrhage 07/20/2012 Other specified disorder of gallbladder 12/11/19 08 07/20/2012 Tobacco use disorder 11/02/2007 02/10/2017 Overview: Since age 19 Migraine headache 07/15/2015 Overview: improved with primidone Irritable bowel syndrome 016 Scoliosis 02/10/2017 History of colon polyps 07/15/19 16 Overview: 2009 tubular adenoma Asthma 02/15/2019 documented as of this encounter (statuses as of 10/25/2022) [facility] History of Past illness Narrative* Problem Noted Date Resolved Date Essential hypertension, benign 06/03/2016 0 08/29/2017 Cervical disc disorder with radiculopathy 201502/10/2017 DDD (degenerative disc disease), cervical 201502/10/2017 Essential hypertension, benign 05/17/2011 0 07/15/2015 Unspecified gastritis and ga stroduodenitis without mention of hemorrhage 02/09/2010 07/15/2015 Overview: Small ulcer on EGD 2009 Blood in stool 02/09/2010 07/20/2012 Loss of weight 02/09/2010 07/20/2012 Hemorrhage of gastrointestinal tract, unspecifie d 02/09/2010 07/15/2015 Acute gastritis without mention of hemorrhage 07/20/2012 Other specified disorder of gallbladder 12/11/19 08 07/20/2012 Tobacco use disorder 11/02/2007 02/10/2017 Overview: Since age 19 Migraine headache 07/15/2015 Overview: improved with primidone Irritable bowel syndrome 016 Scoliosis 02/10/2017 History of colon polyps 07/15/19 16 Overview: 2010 tubular adenoma Asthma 02/15/2019 documented as of this encounter (statuses as of 11/07/2022) [facility] History of Past illness Narrative* Problem Noted Date Resolved Date Essential hypertension, benign 06/03/2016 0 08/29/2017 Cervical disc disorder with radiculopathy 201502/10/2017 DDD (degenerative disc disease), cervical 201502/10/2017 Essential hypertension, benign 05/17/2011 0 07/15/2015 Unspecified gastritis and ga stroduodenitis without mention of hemorrhage 02/09/2010 07/15/2015 Overview: Small ulcer on EGD 2009 Blood in stool 02/09/2010 07/20/2012 Loss of weight 02/09/2010 07/20/2012 Hemorrhage of gastrointestinal tract, unspecifie d 02/09/2010 07/15/2015 Acute gastritis without mention of hemorrhage 07/20/2012 Other specified disorder of gallbladder 12/11/19 08 07/20/2012 Tobacco use disorder 11/02/2007 02/10/2017 Overview: Since age 19 Migraine headache 07/15/2015 Overview: improved with primidone Irritable bowel syndrome 016 Scoliosis 02/10/2017 History of colon polyps 07/15/19 16 Overview: 2010 tubular adenoma Asthma 02/15/2019 documented as of this encounter (statuses as of 11/12/2022) [facility] History of Past illness Narrative* Problem Noted Date Resolved Date Essential hypertension, benign 06/03/2016 0 08/29/2017 Cervical disc disorder with radiculopathy 201502/10/2017 DDD (degenerative disc disease), cervical 201502/10/2017 Essential hypertension, benign 05/17/2011 0 07/15/2015 Unspecified gastritis and ga stroduodenitis without mention of hemorrhage 02/09/2010 07/15/2015 Overview: Small ulcer on EGD 2009 Blood in stool 02/09/2010 07/20/2012 Loss of weight 02/09/2010 07/20/2012 Hemorrhage of gastrointestinal tract, unspecifie d 02/09/2010 07/15/2015 Acute gastritis without mention of hemorrhage 07/20/2012 Other specified disorder of gallbladder 12/11/19 08 07/20/2012 Tobacco use disorder 11/02/2007 02/10/2017 Overview: Since age 19 Migraine headache 07/15/2015 Overview: improved with primidone Irritable bowel syndrome 016 Scoliosis 02/10/2017 History of colon polyps 07/15/19 16 Overview: 2009 tubular adenoma Asthma 02/15/2019 documented as of this encounter (statuses as of 11/15/2022) [facility] History of Past illness Narrative* Problem Noted Date Resolved Date Essential hypertension, benign 06/03/2016 0 08/29/2017 Cervical disc disorder with radiculopathy 201502/10/2017 DDD (degenerative disc disease), cervical 201502/10/2017 Essential hypertension, benign 05/17/2011 0 07/15/2015 Unspecified gastritis and ga stroduodenitis without mention of hemorrhage 02/09/2010 07/15/2015 Overview: Small ulcer on EGD 2009 Blood in stool 02/09/2010 07/20/2012 Loss of weight 02/09/2010 07/20/2012 Hemorrhage of gastrointestinal tract, unspecifie d 02/09/2010 07/15/2015 Acute gastritis without mention of hemorrhage 07/20/2012 Other specified disorder of gallbladder 12/11/19 08 07/20/2012 Tobacco use disorder 11/02/2007 02/10/2017 Overview: Since age 19 Migraine headache 07/15/2015 Overview: improved with primidone Irritable bowel syndrome 016 Scoliosis 02/10/2017 History of colon polyps 07/15/19 16 Overview: 2009 tubular adenoma Asthma 02/15/2019 documented as of this encounter (statuses as of 11/29/2022) [facility] History of Past illness Narrative* Problem Noted Date Resolved Date Essential hypertension, benign 06/03/2016 0 08/29/2017 Cervical disc disorder with radiculopathy 201502/10/2017 DDD (degenerative disc disease), cervical 201502/10/2017 Essential hypertension, benign 05/17/2011 0 07/15/2015 Unspecified gastritis and ga stroduodenitis without mention of hemorrhage 02/09/2010 07/15/2015 Overview: Small ulcer on EGD 2009 Blood in stool 02/09/2010 07/20/2012 Loss of weight 02/09/2010 07/20/2012 Hemorrhage of gastrointestinal tract, unspecifie d 02/09/2010 07/15/2015 Acute gastritis without mention of hemorrhage 07/20/2012 Other specified disorder of gallbladder 12/11/19 08 07/20/2012 Tobacco use disorder 11/02/2007 02/10/2017 Overview: Since age 19 Migraine headache 07/15/2015 Overview: improved with primidone Irritable bowel syndrome 016 Scoliosis 02/10/2017 History of colon polyps 07/15/19 16 Overview: 2009 tubular adenoma Asthma 02/15/2019 documented as of this encounter (statuses as of 12/11/2022) [facility] History of Past illness Narrative* Problem Noted Date Resolved Date Essential hypertension, benign 06/03/2016 0 08/29/2017 Cervical disc disorder with radiculopathy 201502/10/2017 DDD (degenerative disc disease), cervical 201502/10/2017 Essential hypertension, benign 05/17/2011 0 07/15/2015 Unspecified gastritis and ga stroduodenitis without mention of hemorrhage 02/09/2010 07/15/2015 Overview: Small ulcer on EGD 2009 Blood in stool 02/09/2010 07/20/2012 Loss of weight 02/09/2010 07/20/2012 Hemorrhage of gastrointestinal tract, unspecifie d 02/09/2010 07/15/2015 Acute gastritis without mention of hemorrhage 07/20/2012 Other specified disorder of gallbladder 12/11/19 08 07/20/2012 Tobacco use disorder 11/02/2007 02/10/2017 Overview: Since age 19 Migraine headache 07/15/2015 Overview: improved with primidone Irritable bowel syndrome 016 Scoliosis 02/10/2017 History of colon polyps 07/15/19 16 Overview: 2009 tubular adenoma Asthma 02/15/2019 documented as of this encounter (statuses as of 12/06/2022) [facility] History of Past illness Narrative* Problem Noted Date Resolved Date Essential hypertension, benign 06/03/2016 0 08/29/2017 Cervical disc disorder with radiculopathy 201502/10/2017 DDD (degenerative disc disease), cervical 201502/10/2017 Essential hypertension, benign 05/17/2011 0 07/15/2015 Unspecified gastritis and ga stroduodenitis without mention of hemorrhage 02/09/2010 07/15/2015 Overview: Small ulcer on EGD 2009 Blood in stool 02/09/2010 07/20/2012 Loss of weight 02/09/2010 07/20/2012 Hemorrhage of gastrointestinal tract, unspecifie d 02/09/2010 07/15/2015 Acute gastritis without mention of hemorrhage 07/20/2012 Other specified disorder of gallbladder 12/11/19 08 07/20/2012 Tobacco use disorder 11/02/2007 02/10/2017 Overview: Since age 19 Migraine headache 07/15/2015 Overview: improved with primidone Irritable bowel syndrome 016 Scoliosis 02/10/2017 History of colon polyps 07/15/19 16 Overview: 2010 tubular adenoma Asthma 02/15/2019 documented as of this encounter (statuses as of 12/07/2022) [facility] History of Past illness Narrative* Problem Noted Date Diagnosed Date Resolved Date Essential hypertension, benign 06/03/2016 08/29/2017 Cervical disc disorder with radiculopathy 08/15/2015 02/10/2017 DDD (degenerative disc disease), cervical 08/15/2015 02/10/2017 Essential hypertension, benign 05/17/2011 07/15/2015 Unspecified gastritis and ga stroduodenitis without mention of hemorrhage 02/09/2010 07/15/2015 Overview: Small ulcer on EGD 2009 Blood in stool 02/09/2010 07/20/2012 Loss of weight 02/09/2010 07/20/2012 Hemorrhage of gastrointestin al tract, unspecified 02/09/2010 07/15/2015 Acute gastritis without mention of hemorrhage 02/10/20 10 07/20/2012 Other specified disorder of gallbladder 12/11/2007 07/20/2012 Tobacco use disorder 11/02/2007 017 Overview: Since age 19 Migraine headache 07/15/2015 Overview: improved with primidone Irritable bowel syndrome 06/2016 Scoliosis 02/10/2017 History of colon polyps 07/04 Overview: 2009 tubular adenoma Asthma 02/15/2019 documented as of this encounter (statuses as of 01/08/2023) [facility] History of Past illness Narrative* Problem Noted Date Diagnosed Date Resolved Date Essential hypertension, benign 06/03/2016 08/29/2017 Cervical disc disorder with radiculopathy 08/15/2015 02/10/2017 DDD (degenerative disc disease), cervical 08/15/2015 02/10/2017 Essential hypertension, benign 05/17/2011 07/15/2015 Unspecified gastritis and ga stroduodenitis without mention of hemorrhage 02/09/2010 07/15/2015 Overview: Small ulcer on EGD 2009 Blood in stool 02/09/2010 07/20/2012 Loss of weight 02/09/2010 07/20/2012 Hemorrhage of gastrointestin al tract, unspecified 02/09/2010 07/15/2015 Acute gastritis without mention of hemorrhage 02/10/2007/20/2012 Other specified disorder of gallbladder 12/11/2007 07/20/2012 Tobacco use disorder 11/02/2007 017 Overview: Since age 19 Migraine headache 07/15/2015 Overview: improved with primidone Irritable bowel syndrome 06/2016 Scoliosis 02/10/2017 History of colon polyps 07/04 Overview: 2009 tubular adenoma Asthma 02/15/2019 documented as of this encounter (statuses as of 01/19/2023) [facility] History of Past illness Narrative* Problem Noted Date Diagnosed Date Resolved Date Essential hypertension, benign 06/03/2016 08/29/2017 Cervical disc disorder with radiculopathy 08/15/2015 02/10/2017 DDD (degenerative disc disease), cervical 08/15/2015 02/10/2017 Essential hypertension, benign 05/17/2011 07/15/2015 Unspecified gastritis and ga stroduodenitis without mention of hemorrhage 02/09/2010 07/15/2015 Overview: Small ulcer on EGD 2009 Blood in stool 02/09/2010 07/20/2012 Loss of weight 02/09/2010 07/20/2012 Hemorrhage of gastrointestin al tract, unspecified 02/09/2010 07/15/2015 Acute gastritis without mention of hemorrhage 02/10/20 10 07/20/2012 Other specified disorder of gallbladder 12/11/2007 07/20/2012 Tobacco use disorder 11/02/2007 017 Overview: Since age 19 Migraine headache 07/15/2015 Overview: improved with primidone Irritable bowel syndrome 06/2016 Scoliosis 02/10/2017 History of colon polyps 07/04 Overview: 2010 tubular adenoma Asthma 02/15/2019 documented as of this encounter (statuses as of 02/16/2023) [facility] History of Past illness Narrative* Problem Noted Date Diagnosed Date Resolved Date Essential hypertension, benign 06/03/2016 08/29/2017 Cervical disc disorder with radiculopathy 08/15/2015 02/10/2017 DDD (degenerative disc disease), cervical 08/15/2015 02/10/2017 Essential hypertension, benign 05/17/2011 07/15/2015 Unspecified gastritis and ga stroduodenitis without mention of hemorrhage 02/09/2010 07/15/2015 Overview: Small ulcer on EGD 2009 Blood in stool 02/09/2010 07/20/2012 Loss of weight 02/09/2010 07/20/2012 Hemorrhage of gastrointestin al tract, unspecified 02/09/2010 07/15/2015 Acute gastritis without mention of hemorrhage 02/10/20 10 07/20/2012 Other specified disorder of gallbladder 12/11/2007 07/20/2012 Tobacco use disorder 11/02/2007 017 Overview: Since age 19 Migraine headache 07/15/2015 Overview: improved with primidone Irritable bowel syndrome 06/2016 Scoliosis 02/10/2017 History of colon polyps 07/04 Overview: 2009 tubular adenoma Asthma 02/15/2019 documented as of this encounter (statuses as of 02/22/2023) [facility] History of Past illness Narrative* Problem Noted Date Diagnosed Date Resolved Date Essential hypertension, benign 06/03/2016 08/29/2017 Cervical disc disorder with radiculopathy 08/15/2015 02/10/2017 DDD (degenerative disc disease), cervical 08/15/2015 02/10/2017 Essential hypertension, benign 05/17/2011 07/15/2015 Unspecified gastritis and ga stroduodenitis without mention of hemorrhage 02/09/2010 07/15/2015 Overview: Small ulcer on EGD 2009 Blood in stool 02/09/2010 07/20/2012 Loss of weight 02/09/2010 07/20/2012 Hemorrhage of gastrointestin al tract, unspecified 02/09/2010 07/15/2015 Acute gastritis without mention of hemorrhage 02/10/20 10 07/20/2012 Other specified disorder of gallbladder 12/11/2007 07/20/2012 Tobacco use disorder 11/02/2007 017 Overview: Since age 19 Migraine headache 07/15/2015 Overview: improved with primidone Irritable bowel syndrome 06/2016 Scoliosis 02/10/2017 History of colon polyps 07/04 Overview: 2009 tubular adenoma Asthma 02/15/2019 documented as of this encounter (statuses as of 03/03/2023) [facility] History of Past illness Narrative* Problem Noted Date Diagnosed Date Resolved Date Essential hypertension, benign 06/03/2016 08/29/2017 Cervical disc disorder with radiculopathy 08/15/2015 02/10/2017 DDD (degenerative disc disease), cervical 08/15/2015 02/10/2017 Essential hypertension, benign 05/17/2011 07/15/2015 Unspecified gastritis and ga stroduodenitis without mention of hemorrhage 02/09/2010 07/15/2015 Overview: Small ulcer on EGD 2009 Blood in stool 02/09/2010 07/20/2012 Loss of weight 02/09/2010 07/20/2012 Hemorrhage of gastrointestin al tract, unspecified 02/09/2010 07/15/2015 Acute gastritis without mention of hemorrhage 02/10/20 10 07/20/2012 Other specified disorder of gallbladder 12/11/2007 07/20/2012 Tobacco use disorder 11/02/2007 017 Overview: Since age 19 Migraine headache 07/15/2015 Overview: improved with primidone Irritable bowel syndrome 06/2016 Scoliosis 02/10/2017 History of colon polyps 07/04 Overview: 2010 tubular adenoma Asthma 02/15/2019 documented as of this encounter (statuses as of 04/27/2023) [facility] History of Past illness Narrative* Problem Noted Date Diagnosed Date Resolved Date Essential hypertension, benign 06/03/2016 08/29/2017 Cervical disc disorder with radiculopathy 08/15/2015 02/10/2017 DDD (degenerative disc disease), cervical 08/15/2015 02/10/2017 Essential hypertension, benign 05/17/2011 07/15/2015 Unspecified gastritis and ga stroduodenitis without mention of hemorrhage 02/09/2010 07/15/2015 Overview: Small ulcer on EGD 2009 Blood in stool 02/09/2010 07/20/2012 Loss of weight 02/09/2010 07/20/2012 Hemorrhage of gastrointestin al tract, unspecified 02/09/2010 07/15/2015 Acute gastritis without mention of hemorrhage 02/10/20 10 07/20/2012 Other specified disorder of gallbladder 12/11/2007 07/20/2012 Tobacco use disorder 11/02/2007 017 Overview: Since age 19 Migraine headache 07/15/2015 Overview: improved with primidone Irritable bowel syndrome 06/2016 Scoliosis 02/10/2017 History of colon polyps 07/04 Overview: 2009 tubular adenoma Asthma 02/15/2019 documented as of this encounter (statuses as of 2023) [facility] History of Past illness Narrative* Problem Noted Date Diagnosed Date Resolved Date Essential hypertension, benign 06/03/2016 08/29/2017 Cervical disc disorder with radiculopathy 08/15/2015 02/10/2017 DDD (degenerative disc disease), cervical 08/15/2015 02/10/2017 Essential hypertension, benign 05/17/2011 07/15/2015 Unspecified gastritis and ga stroduodenitis without mention of hemorrhage 02/09/2010 07/15/2015 Overview: Small ulcer on EGD 2009 Blood in stool 02/09/2010 07/20/2012 Loss of weight 02/09/2010 07/20/2012 Hemorrhage of gastrointestin al tract, unspecified 02/09/2010 07/15/2015 Acute gastritis without mention of hemorrhage 02/10/20 10 07/20/2012 Other specified disorder of gallbladder 12/11/2007 07/20/2012 Tobacco use disorder 11/02/2007 017 Overview: Since age 19 Migraine headache 07/15/2015 Overview: improved with primidone Irritable bowel syndrome 06/2016 Scoliosis 02/10/2017 History of colon polyps 07/04 Overview: 2009 tubular adenoma Asthma 02/15/2019 documented as of this encounter (statuses as of 05/26/2023) [facility] History of Past illness Narrative* Problem Noted Date Diagnosed Date Resolved Date Essential hypertension, benign 06/03/2016 08/29/2017 Cervical disc disorder with radiculopathy 08/15/2015 02/10/2017 DDD (degenerative disc disease), cervical 08/15/2015 02/10/2017 Essential hypertension, benign 05/17/2011 07/15/2015 Unspecified gastritis and ga stroduodenitis without mention of hemorrhage 02/09/2010 07/15/2015 Overview: Small ulcer on EGD 2009 Blood in stool 02/09/2010 07/20/2012 Loss of weight 02/09/2010 07/20/2012 Hemorrhage of gastrointestin al tract, unspecified 02/09/2010 07/15/2015 Acute gastritis without mention of hemorrhage 02/10/2007/20/2012 Other specified disorder of gallbladder 12/11/2007 07/20/2012 Tobacco use disorder 11/02/2007 017 Overview: Since age 19 Migraine headache 07/15/2015 Overview: improved with primidone Irritable bowel syndrome 06/2016 Scoliosis 02/10/2017 History of colon polyps 07/04 Overview: 2009 tubular adenoma Asthma 02/15/2019 documented as of this encounter (statuses as of 05/30/2023) [facility] History of Past illness Narrative* Problem Noted Date Diagnosed Date Resolved Date Essential hypertension, benign 06/03/2016 08/29/2017 Cervical disc disorder with radiculopathy 08/15/2015 02/10/2017 DDD (degenerative disc disease), cervical 08/15/2015 02/10/2017 Essential hypertension, benign 05/17/2011 07/15/2015 Unspecified gastritis and ga stroduodenitis without mention of hemorrhage 02/09/2010 07/15/2015 Overview: Small ulcer on EGD 2009 Blood in stool 02/09/2010 07/20/2012 Loss of weight 02/09/2010 07/20/2012 Hemorrhage of gastrointestin al tract, unspecified 02/09/2010 07/15/2015 Acute gastritis without mention of hemorrhage 02/10/2007/20/2012 Other specified disorder of gallbladder 12/11/2007 07/20/2012 Tobacco use disorder 11/02/2007 017 Overview: Since age 19 Migraine headache 07/15/2015 Overview: improved with primidone Irritable bowel syndrome 06/2016 Scoliosis 02/10/2017 History of colon polyps 07/04 Overview: 2009 tubular adenoma Asthma 02/15/2019 documented as of this encounter (statuses as of 06/17/2023) [facility] History of Past illness Narrative* Problem Noted Date Diagnosed Date Resolved Date Essential hypertension, benign 06/03/2016 08/29/2017 Cervical disc disorder with radiculopathy 08/15/2015 02/10/2017 DDD (degenerative disc disease), cervical 08/15/2015 02/10/2017 Essential hypertension, benign 05/17/2011 07/15/2015 Unspecified gastritis and ga stroduodenitis without mention of hemorrhage 02/09/2010 07/15/2015 Overview: Small ulcer on EGD 2009 Blood in stool 02/09/2010 07/20/2012 Loss of weight 02/09/2010 07/20/2012 Hemorrhage of gastrointestin al tract, unspecified 02/09/2010 07/15/2015 Acute gastritis without mention of hemorrhage 02/10/20 10 07/20/2012 Other specified disorder of gallbladder 12/11/2007 07/20/2012 Tobacco use disorder 11/02/2007 017 Overview: Since age 19 Migraine headache 07/15/2015 Overview: improved with primidone Irritable bowel syndrome 06/2016 Scoliosis 02/10/2017 History of colon polyps 07/04 Overview: 2009 tubular adenoma Asthma 02/15/2019 documented as of this encounter (statuses as of 06/18/2023) [facility] Bilateral impacted cerumen- Primary Impacted cerumen [facility] Diagnosis Cough- Primary SOB (shortness of breath) Shortness of breath [facility] Diagnosis Acute right-sided low back pain without sciatica- Primary Vertigo Dizziness and giddiness Post-nasal drip Postnasal drip Environmental allergies Other allergy, other than to medicinal agents COPD with asthma ([facility]) Chronic obstructive asthma, unspecified [facility] Diagnosis COVID-19- Primary Stage 3 severe COPD by GOLD classification ([facility]) [facility] COVID-19 Stage 3 severe COPD by GOLD classification (HCC) documented in this encounter [facility]* Diagnosis Stage 3 severe COPD by GOLD classification (HCC)- Primary Former smoker Personal history of tobacco use, presenting hazards to health COVID-19 Lung nodules Other nonspecific abnormal finding of lung field [facility] Diagnosis COVID-19- Primary Stage 3 severe COPD by GOLD classification (HCC) [facility] Diagnosis Chronic obstructive pulmonary disease, unspecified COPD type (HCC)- Primary [facility] Diagnosis COPD with asthma (HCC)- Primary Chronic obstructive asthma, unspecified Need for influenza vaccination Need for prophylactic vaccination and inoculation against influenza Hypoxemia Hyperlipidemia, unspecified hyperlipidemia type Deformity of toenail Unspecified disease of nail Environmental allergies Other allergy, other than to medicinal agents Lung nodule seen on imaging study Solitary pulmonary nodule Elevated blood pressure reading Elevated blood pressure reading without diagnosis of hypertension documented in this encounter [facility] note* Diagnosis Lung nodules- Primary Other nonspecific abnormal finding of lung field Centrilobular emphysema (HCC) Other emphysema Former cigarette smoker Personal history of tobacco use, presenting hazards to health documented in this encounter [facility] note* Diagnosis Stage 3 severe COPD by GOLD classification (HCC)- Primary Lung nodules Other nonspecific abnormal finding of lung field Chronic respiratory failure with hypoxia (HCC) Chronic respiratory failure [facility] Diagnosis Environmental allergies Other allergy, other than to medicinal agents documented in this encounter [facility] note* Diagnosis Encounter for screening mammogram for breast cancer [facility] Diagnosis Routine medical exam- Primary Routine general medical examination at a health care facility Chronic respiratory failure with hypoxia (HCC) Chronic respiratory failure COPD with asthma (HCC) Chronic obstructive asthma, unspecified Hyperlipidemia, unspecified hyperlipidemia type Screening for cervical cancer Screening for malignant neoplasm of the cervix Screening for colon cancer Special screening for malignant neoplasms, colon Need for vaccination Need for prophylactic vaccination and inoculation against unspecified single disease documented in this encounter [facility] note* Diagnosis COPD with exacerbation (HCC)- Primary Obstructive chronic bronchitis with exacerbation Abnormal breath sounds Abnormal chest sounds [facility] Diagnosis COPD with exacerbation (HCC)- Primary Obstructive chronic bronchitis with exacerbation [facility] Diagnosis Pneumonia of left lower lobe due to infectious organism- Primary COPD, severe (HCC) Chronic airway obstruction, not elsewhere classified Chronic hypoxemic respiratory failure (HCC) Chronic respiratory failure [facility] Diagnosis Chronic respiratory failure with hypoxia (HCC)- Primary Chronic respiratory failure COPD with asthma (HCC) Chronic obstructive asthma, unspecified Environmental allergies Other allergy, other than to medicinal agents [facility] Diagnosis Chronic obstructive pulmonary disease, unspecified COPD type (HCC)- Primary [facility] Diagnosis Centrilobular emphysema (HCC)- Primary Other emphysema Chronic hypoxemic respiratory failure (HCC) Chronic respiratory failure Former smoker Personal history of tobacco use, presenting hazards to health [facility] Diagnosis COVID-19 Lung nodules Other nonspecific abnormal finding of lung field documented in this encounter [facility]* Diagnosis Lung nodules Other nonspecific abnormal finding of lung field Centrilobular emphysema (HCC) Other emphysema Former cigarette smoker Personal history of tobacco use, presenting hazards to health [facility] Diagnosis COPD with exacerbation (HCC)- Primary Obstructive chronic bronchitis with exacerbation Lung nodules Other nonspecific abnormal finding of lung field documented in this encounter [facility] for referral (narrative)* Diagnostic Procedure Only (Routine) - Authorized Specialty Diagnoses / Procedures Referred By Bobby padron Referred To [facility] Diagnoses COVID-19 Stage 3 severe COPD by GOLD classification ([facility]) Procedures OXIMETRY WITH AMBULATION NONINVASIVE EAR/PULSE OXIMETRY MULTIPLE Luna Rowell PA-C [facility] [address] [address] Respiratory Remer [address] [place] [address] Referral ID Status Reason Start Date Expiration Date Visits Requested Visits Authorized [id number] Authorized Financial Clearance Not Required 01/21/2022 07/03/2022 1 1 [facility] for referral (narrative)* Diagnostic Procedure Only (Routine) - Pending Review Specialty Diagnoses / Procedures Referred By Bobby padron Referred To Contact BR IMAGING Diagnoses Encounter for screening mammogram for breast cancer Procedures AISLINN SCREENING SCREENING MAMMOGRAPHY BI 2-VIEW BREAST INC CAD Julio Draper MD [address] [place] [address] Br Imaging [address] [place] [address] Referral ID Status Reason Start Date Expiration Date Visits Requested Visits Authorized [id number] Pending Review Auto-Generat ed Referral 10/06/2022 11/05/2023 1 1 [facility] for referral (narrative)* Diagnostic Procedure Only (Routine) - Closed Specialty Diagnoses / Procedures Referred By Contac t Referred To Contact CT IMAGING Diagnoses COVID-[address] CHEST WO IVCON DIAGNOSTIC COMPUTED TOMOGRAPHY THORAX W/O CNTRST Luna Chavira PA-C [address] [place] [address] [place] [address] Referral ID Status Reason Start Date Expiration Date V isits Requested Visits Authorized [id number] Closed Auto-Generate d Referral 05/25/2022 07/03/2022 1 1 [facility] for referral (narrative)* Diagnostic Procedure Only (Routine) - Pending Review Specialty Diagnoses / Procedures Referred By Bobby padron Referred To Contact MOLECULAR & FUNCTIONAL IMAGING Diagnoses Lung nodules Procedures NM PET/CT SKULL-THIGH INITIAL PET IMAGING CT ATTENUATION SKULL BASE MID-THIGH Luna Chavira PA-C [address] [place] [address] Molecular & Functional Imaging [address] [place] [address] Referral ID Status Reason Start Date Expiration Date Visits Requested Visits Authorized [id number] Pending Review Auto-Generat ed Referral 06/28/[address] 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 60-74 MINUTES Asia Jiménez APRN.[facility] [address] [place] [address] Referral ID Status Reason Start Date Expiration Date Visits Requested Visits Authorized [id number] Pending Review PCP Requested Referral 11/12/2021 11/12/2022 1 1 Specialty Diagnoses / Procedures Referred By Contac t Referred To Contact CT IMAGING Diagnoses COVID-[address] CHEST WO IVCON DIAGNOSTIC COMPUTED TOMOGRAPHY THORAX W/O CNTRST Luna Chavira PA-C [address] [address] [address] Imaging Referral ID Status Reason Start Date Expiration Date Visits Requested Visits Authorized [id number] Pending Review Auto-Generat ed Referral 05/04/2022 02/20/2023 1 1 Specialty Diagnoses / Procedures Referred By Contac t Referred To Contact CT IMAGING Diagnoses Lung nodules Centrilobular emphysema (HCC) Former cigarette smoker Procedures CT CHEST WO IVCON DIAGNOSTIC COMPUTED TOMOGRAPHY THORAX W/O CNTJasmine Amaral MD [address] [facility] [address] Ct Imaging Referral ID Status Reason Start Date Expiration Date Visits Requested Visits Authorized [id number] Authorized Auto-Generat ed Referral 06/30/2023 1 1 Specialty Diagnoses / Procedures Referred By Contac t Referred To Contact Gynecology Diagnoses Screening for cervical cancer Procedures CONSULT TO GYNECOLOGY OFFICE/OUTPATIENT [facility] MDM 60-74 MINUTES Julio Draper MD [address] [place] [address] Referral ID Status Reason Start Date Expiration Date Visits Requested Visits Authorized [id number] Pending Review PCP Requested Referral Auto-Generate d Referral 11/05/2022 11/05/2023 1 1 Additional Source Comments INFORMATION SOURCE (unrecogn ized section and content) DATE CREATED AUTHOR AUTHOR'S ORGANIZ ATION 06/18/2023 [facility] ([place]) DATE CREATED AUTHOR AUTHOR'S ORGANIZ ATION 07/07/2023 [facility] Source Comments (unrecognize d section and content) In the event this informatio n is protected by the Federal Confidentiality of Alcohol and Drug Abuse Patient Records regulations: The Federal rules restrict any use of the information to criminally investigate or prosecute any alcohol or drug abuse patient.[facility] the event this information is protected by the Federal Confidentiality of Alcohol and Drug Abuse Patient Records regulations: The Federal rules restrict any use of the information to criminally investigate or prosecute any alcohol or drug abuse patient.[facility] HospitalIn the event this information is protected by the Federal Confidentiality of Alcohol and Drug Abuse Patient Records regulations: The Federal rules restrict any use of the information to criminally investigate or prosecute any alcohol or drug abuse patient.[facility] HospitalIn the event this information is protected by the Federal Confidentiality of Alcohol and Drug Abuse Patient Records regulations: The Federal rules restrict any use of the information to criminally investigate or prosecute any alcohol or drug abuse patient.[facility] HospitalIn the event this information is protected by the Federal Confidentiality of Alcohol and Drug Abuse Patient Records regulations: The Federal rules restrict any use of the information to criminally investigate or prosecute any alcohol or drug abuse patient.[facility] HospitalIn the event this information is protected by the Federal Confidentiality of Alcohol and Drug Abuse Patient Records regulations: The Federal rules restrict any use of the information to criminally investigate or prosecute any alcohol or drug abuse patient.[facility] HospitalIn the event this information is protected by the Federal Confidentiality of Alcohol and Drug Abuse Patient Records regulations: The Federal rules restrict any use of the information to criminally investigate or prosecute any alcohol or drug abuse patient.[facility] HospitalIn the event this information is protected by the Federal Confidentiality of Alcohol and Drug Abuse Patient Records regulations: The Federal rules restrict any use of the information to criminally investigate or prosecute any alcohol or drug abuse patient.[facility] HospitalIn the event this information is protected by the Federal Confidentiality of Alcohol and Drug Abuse Patient Records regulations: The Federal rules restrict any use of the information to criminally investigate or prosecute any alcohol or drug abuse patient.[facility] HospitalIn the event this information is protected by the Federal Confidentiality of Alcohol and Drug Abuse Patient Records regulations: The Federal rules restrict any use of the information to criminally investigate or prosecute any alcohol or drug abuse patient.[facility] HospitalIn the event this information is protected by the Federal Confidentiality of Alcohol and Drug Abuse Patient Records regulations: The Federal rules restrict any use of the information to criminally investigate or prosecute any alcohol or drug abuse patient.[facility] HospitalIn the event this information is protected by the Federal Confidentiality of Alcohol and Drug Abuse Patient Records regulations: The Federal rules restrict any use of the information to criminally investigate or prosecute any alcohol or drug abuse patient.[facility] HospitalIn the event this information is protected by the Federal Confidentiality of Alcohol and Drug Abuse Patient Records regulations: The Federal rules restrict any use of the information to criminally investigate or prosecute any alcohol or drug abuse patient.[facility] HospitalIn the event this information is protected by the Federal Confidentiality of Alcohol and Drug Abuse Patient Records regulations: The Federal rules restrict any use of the information to criminally investigate or prosecute any alcohol or drug abuse patient.[facility] HospitalIn the event this information is protected by the Federal Confidentiality of Alcohol and Drug Abuse Patient Records regulations: The Federal rules restrict any use of the information to criminally investigate or prosecute any alcohol or drug abuse patient.[facility] HospitalIn the event this information is protected by the Federal Confidentiality of Alcohol and Drug Abuse Patient Records regulations: The Federal rules restrict any use of the information to criminally investigate or prosecute any alcohol or drug abuse patient.[facility] HospitalIn the event this information is protected by the Federal Confidentiality of Alcohol and Drug Abuse Patient Records regulations: The Federal rules restrict any use of the information to criminally investigate or prosecute any alcohol or drug abuse patient.[facility] HospitalIn the event this information is protected by the Federal Confidentiality of Alcohol and Drug Abuse Patient Records regulations: The Federal rules restrict any use of the information to criminally investigate or prosecute any alcohol or drug abuse patient.[facility] HospitalIn the event this information is protected by the Federal Confidentiality of Alcohol and Drug Abuse Patient Records regulations: The Federal rules restrict any use of the information to criminally investigate or prosecute any alcohol or drug abuse patient.[facility] HospitalIn the event this information is protected by the Federal Confidentiality of Alcohol and Drug Abuse Patient Records regulations: The Federal rules restrict any use of the information to criminally investigate or prosecute any alcohol or drug abuse patient.[facility] HospitalIn the event this information is protected by the Federal Confidentiality of Alcohol and Drug Abuse Patient Records regulations: The Federal rules restrict any use of the information to criminally investigate or prosecute any alcohol or drug abuse patient.[facility] HospitalIn the event this information is protected by the Federal Confidentiality of Alcohol and Drug Abuse Patient Records regulations: The Federal rules restrict any use of the information to criminally investigate or prosecute any alcohol or drug abuse patient.[facility] HospitalIn the event this information is protected by the Federal Confidentiality of Alcohol and Drug Abuse Patient Records regulations: The Federal rules restrict any use of the information to criminally investigate or prosecute any alcohol or drug abuse patient.[facility] HospitalIn the event this information is protected by the Federal Confidentiality of Alcohol and Drug Abuse Patient Records regulations: The Federal rules restrict any use of the information to criminally investigate or prosecute any alcohol or drug abuse patient.[facility] HospitalIn the event this information is protected by the Federal Confidentiality of Alcohol and Drug Abuse Patient Records regulations: The Federal rules restrict any use of the information to criminally investigate or prosecute any alcohol or drug abuse patient.[facility] HospitalIn the event this information is protected by the Federal Confidentiality of Alcohol and Drug Abuse Patient Records regulations: The Federal rules restrict any use of the information to criminally investigate or prosecute any alcohol or drug abuse patient.[facility] HospitalIn the event this information is protected by the Federal Confidentiality of Alcohol and Drug Abuse Patient Records regulations: The Federal rules restrict any use of the information to criminally investigate or prosecute any alcohol or drug abuse patient.[facility] HospitalIn the event this information is protected by the Federal Confidentiality of Alcohol and Drug Abuse Patient Records regulations: The Federal rules restrict any use of the information to criminally investigate or prosecute any alcohol or drug abuse patient.[facility] HospitalIn the event this information is protected by the Federal Confidentiality of Alcohol and Drug Abuse Patient Records regulations: The Federal rules restrict any use of the information to criminally investigate or prosecute any alcohol or drug abuse patient.[facility] HospitalIn the event this information is protected by the Federal Confidentiality of Alcohol and Drug Abuse Patient Records regulations: The Federal rules restrict any use of the information to criminally investigate or prosecute any alcohol or drug abuse patient.[facility] HospitalIn the event this information is protected by the Federal Confidentiality of Alcohol and Drug Abuse Patient Records regulations: The Federal rules restrict any use of the information to criminally investigate or prosecute any alcohol or drug abuse patient.[facility] HospitalIn the event this information is protected by the Federal Confidentiality of Alcohol and Drug Abuse Patient Records regulations: The Federal rules restrict any use of the information to criminally investigate or prosecute any alcohol or drug abuse patient.[facility] HospitalIn the event this information is protected by the Federal Confidentiality of Alcohol and Drug Abuse Patient Records regulations: The Federal rules restrict any use of the information to criminally investigate or prosecute any alcohol or drug abuse patient.[facility] HospitalIn the event this information is protected by the Federal Confidentiality of Alcohol and Drug Abuse Patient Records regulations: The Federal rules restrict any use of the information to criminally investigate or prosecute any alcohol or drug abuse patient.[facility] HospitalIn the event this information is protected by the Federal Confidentiality of Alcohol and Drug Abuse Patient Records regulations: The Federal rules restrict any use of the information to criminally investigate or prosecute any alcohol or drug abuse patient.[facility] HospitalIn the event this information is protected by the Federal Confidentiality of Alcohol and Drug Abuse Patient Records regulations: The Federal rules restrict any use of the information to criminally investigate or prosecute any alcohol or drug abuse patient.[facility] Reason for Visit (unrecogniz ed section and content) Reason Comments Cough vomiting, SOB x this AM Reason Comments Dizziness Back Pain L left side back x 2 days Reason Comments Patient Update Reason Comments Spirometry Specialty Diagnoses / Procedures Referred By Bobby t Referred To Contact [facility] Diagnoses COVID-19 Stage 3 severe COPD by GOLD classification (HCC) Procedures OXIMETRY WITH AMBULATION NONINVASIVE EAR/PULSE OXIMETRY MULTIPLE DETER Luna Chavira PA-C [address] [address] Respiratory Remer [address] [place] [address] Referral ID Status Reason Start Date Expiration Date V isits Requested Visits Authorized [id number] Closed Financial Clearance Not Required 01/21/2022 07/03/2022 1 1 Reason Comments Established Patient COPD Reason Comments Orders Reason Comments 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 F/U 6 months Immunizations 05/03/2022 Flu vaccination Specialty Diagnoses / Procedures Referred By Contac t Referred To Contact Internal Medicine / INTERNAL MEDICINE Diagnoses 6 month follow up Procedures 4[place] [address] [place] [address] Julio Draper MD [address] [place] [address] Referral ID Status Reason Start Date Expiration Date Visits Re quested Visits Authorized [id number] Closed 05/03/2022 07/03/2022 1 1 Reason Onset Date Comments Refill Request 07/31/2022 Reason Onset Date Comments Refill Request 09/10/2022 Reason Onset Date Comments Refill Request 10/23/2022 Reason Comments Yearly Exam Reason Comments Chest Congestion Chest congestion, co ugh x 4 days Reason Comments Follow Up Reason Comments Fever Nausea Chest Pain Dizziness Reason Comments Established Patient COPD Reason Onset Date Comments Transition Of Care 12/06/2022 Reason Comments Patient Update Reason Comments 4 week follow up - pneumonia Reason Onset Date Comments Refill Request 01/18/[address] Specialty Diagnoses / Procedures Referred By Contac t Referred To Contact CT IMAGING Diagnoses COVID-[address] CHEST WO IVCON DIAGNOSTIC COMPUTED TOMOGRAPHY THORAX W/O CNTRST Luna Chavira PA-C [address] [place] [address] Ct Imaging [id number] Referral ID Status Reason Start Date Expiration Date V isits Requested Visits Authorized [id number] Closed Auto-Generate d Referral 05/25/2022 07/03/2022 [address] Specialty Diagnoses / Procedures Referred By Contac t Referred To Contact CT IMAGING Diagnoses Lung nodules Centrilobular emphysema (HCC) Former cigarette smoker Procedures CT CHEST WO IVCON DIAGNOSTIC COMPUTED TOMOGRAPHY THORAX W/O Jasmine Francis MD [address] [facility] [place] [address] [place] [address] Referral ID Status Reason Start Date Expiration Date V isits Requested Visits Authorized [id number] Closed Auto-Generate d Referral 05/31/2023 06/30/2023 [address] scan results/ Darlene n Reason Comments [facility] agree to follow Reason Comments Nursing Home Plan of Care Care Teams (unrecognized sec tion and content) Seo Coordinator Relationship Specialty Start Date End Date Julio Draper MD [address] [place] [address] PCP - General Internal Medicine 07/15/15 Seo Coordinator Relationship Specialty Start Date End Date Julio Draper MD [address] [place] [address] PCP - General Internal Medicine 07/15/15 Seo Coordinator Relationship Specialty Start Date End Date Julio Draper MD [address] [place] [address] PCP - General Internal Medicine 07/15/15 Seo Coordinator Relationship Specialty Start Date End Date Julio Draper MD [address] [place] [address] PCP - General Internal Medicine 07/15/15 Seo Coordinator Relationship Specialty Start Date End Date Julio Draper MD [address] [place] [address] PCP - General Internal Medicine 07/15/15 Seo Coordinator Relationship Specialty Start Date End Date Julio Draper MD [address] [place] [address] PCP - General Internal Medicine 07/15/15 Seo Coordinator Relationship Specialty Start Date End Date Julio Draper MD [address] [place] [address] PCP - General Internal Medicine 07/15/15 Seo Coordinator Relationship Specialty Start Date End Date Julio Draper MD [address] [place] [address] PCP - General Internal Medicine 07/15/15 Seo Coordinator Relationship Specialty Start Date End Date Julio Draper MD [address] [place] [address] PCP - General Internal Medicine 07/15/15 Seo Coordinator Relationship Specialty Start Date End Date Julio Draper MD [address] [place] [address] PCP - General Internal Medicine 07/15/15 Seo Coordinator Relationship Specialty Start Date End Date Julio Draper MD [address] [place] [address] PCP - General Internal Medicine 07/15/15 Seo Coordinator Relationship Specialty Start Date End Date Julio Draper MD [address] [place] [address] PCP - General Internal Medicine 07/15/15 Seo Coordinator Relationship Specialty Start Date End Date Julio Draper MD [address] [place] [address] PCP - General Internal Medicine 07/15/15 Seo Coordinator Relationship Specialty Start Date End Date Julio Draper MD [address] [place] [address] PCP - General Internal Medicine 07/15/15 Seo Coordinator Relationship Specialty Start Date End Date Julio Draper MD [address] [place] [address] PCP - General Internal Medicine 07/15/15 Seo Coordinator Relationship Specialty Start Date End Date Julio Draper MD [address] [place] [address] PCP - General Internal Medicine 07/15/15 Seo Coordinator Relationship Specialty Start Date End Date Julio Draper MD [address] [place] [address] PCP - General Internal Medicine 07/15/15 Seo Coordinator Relationship Specialty Start Date End Date Julio Draper MD [address] [place] [address] PCP - General Internal Medicine 07/15/15 Seo Coordinator Relationship Specialty Start Date End Date Julio Draper MD [address] [place] [address] PCP - General Internal Medicine 07/15/15 Seo Coordinator Relationship Specialty Start Date End Date Julio rDaper MD [address] [place] [address] PCP - General Internal Medicine 07/15/15 Seo Coordinator Relationship Specialty Start Date End Date Julio Draper MD [address] [place] [address] PCP - General Internal Medicine 07/15/15 Seo Coordinator Relationship Specialty Start Date End Date Julio Draper MD [address] [place] [address] PCP - General Internal Medicine 07/15/15 Seo Coordinator Relationship Specialty Start Date End Date Julio Draper MD [address] [place] [address] PCP - General Internal Medicine 07/15/15 Seo Coordinator Relationship Specialty Start Date End Date Julio Draper MD [address] [place] [address] PCP - General Internal Medicine 07/15/15 FOR RECORDS PERTAINING TO PATIENTS WHO ARE OR HAVE BEEN ENROLLED IN A CHEMICAL DEPENDENCY/SUBSTANCEABUSE PROGRAM, SOME INFORMATION MAY BE OMITTED. This clinical summary was aggregated from multiple sources. Caution should be exercised in using it in the provision of clinical care. This summary normalizes information from multiple sources, and as a consequence, information in this document may materially change the coding, format and clinical context of patient data. In addition, data may be omitted in some cases. CLINICAL DECISIONS SHOULD BE BASED ON THE PRIMARY CLINICAL RECORDS. [facility]. provides no warranty or guarantee of the accuracy or completeness of information in this document.
[2023-07-07] MEDS: 0.9% Saline Lock 10 ML Syringe IV ×2 (19:34→23:14)
[2023-07-07] MEDS: Ipratropium/Albuterol Sulfate 3 ML AMPUL.NEB INHALATION ×2 (19:49→23:45)
[2023-07-07] MEDS: Budesonide Respules 0.5 MG/2 ML AMPUL.NEB. INHALATION (19:49)
[2023-07-07] MEDS: Potassium Chloride 10mEq/100mL 10 MEQ/100 ML IV.SOLN. 100 MEQ IV BOLUS ×2 (19:53→21:36)
[2023-07-07] MEDS: busPIRone 5 MG Tablet 10 MG PO (22:00)
[2023-07-07] MEDS: Pantoprazole Sodium 40 MG Tablet PO (22:01)
[2023-07-07] MEDS: Metoprolol Tartrate 25 MG Tablet PO (22:01)
[2023-07-07 22:05] LABS: Anion Gap 7 (5-15); BUN 8 mg/dL (7-18); BUN/Creat Ratio 12.6 RATIO (10-20); Calcium,Total 9.1 mg/dL (8.5-10.1); Chloride 100 mmol/L (98-107); Creatinine, Serum 0.63 mg/dL (0.55-1.02); EST Glomerular Filtration Rate 100 mL/min (>60); Est Glom Filt Rate - Afr Amer 121 mL/min (>60); Estimated Creatinine Clearance 47.14 ml/min; Glucose 154 mg/dL (74-106); Potassium 3.3 mmol/L (3.5-5.1); Sodium Level 141 mmol/L (136-145)
[2023-07-08] VITALS (12 sets, daily range): BP systolic 109–131; BP diastolic 58–85; PULSE 71–100; RESP 14–20; TEMP 36.1–37.1; O2SAT 93–100
--- NOTE | 2023-07-08 00:17 | PCM.RX.CS ---
Consult Antibiotic Management Pharmacy has been consulted to manage selected antibiotic: Vancomycin Type of Intervention Type of Consult: New start Labs Labs: Sodium 141 mmol/L (136-145) 07/07/23 21:45 Potassium 3.3 mmol/L (3.5-5.1) L 07/07/23 21:45 Chloride 100 mmol/L (98-107) 07/07/23 21:45 Carbon Dioxide 34.0 mmol/L (21.0-32.0) H 07/07/23 21:45 Anion Gap 7 (5-15) 07/07/23 21:45 BUN 8 mg/dL (7-18) 07/07/23 21:45 Creatinine 0.63 mg/dL (0.55-1.02) 07/07/23 21:45 Est GFR (MDRD) Af Amer 121 mL/min (>60) 07/07/23 21:45 Est GFR (MDRD) Non-Af 100 mL/min (>60) 07/07/23 21:45 BUN/Creatinine Ratio 12.6 RATIO (10-20) 07/07/23 21:45 Glucose 154 mg/dL (74-106) H 07/07/23 21:45 Microbiology Microbiology: Microbiology 07/07/23 13:13 Fluid - Thoracentesis Fluid Gram Stain - Final Dosing Weight Weight used for dosin kg Estimated Creatinine Clearance Estimated Creatinine Clearance: 59 Goal Trough Goal Trough: 15-20 mcg/mL Pharmacy Plan for Drug Dosing Pharmacy Plan for Drug Dosing: Pharmacy Service will continue to monitor and adjust dosing as required. Follow-Up Labs Follow-Up Labs: Trough: Vancomycin Date/Time Labs Ordered Labs to be done on [date and time ordered]: 07/09/23 @0900
[2023-07-08] MEDS: Albuterol 2.5 MG/3 ML VIAL.NEB. INHALATION (03:58)
[2023-07-08] MEDS: Piperacil/Tazobactam 3.375 GM in 0.9% Normal Saline (50mL MB+) 50 ML IV ×3 (05:25→22:33)
[2023-07-08] MEDS: Sucralfate 1 GM Tablet PO ×3 (06:26→16:55)
[2023-07-08 07:17] LABS: Absolute Lymphocyte Count 0.94 X10^3/uL (0.83-4.51); Absolute Neutrophil Count 12.6 X10^3/uL (2.0-7.7); Basophil# 0.07 X10^3/uL; Basophil% 0.5 % (0-1); Eosinophil# 0.01 X10^3/uL; Eosinophils% 0.1 % (0-5); Hematocrit 32.7 % (37-47); Hemoglobin 9.7 g/dL (12.0-15.0); Lymphocyte # 0.94 X10^3/ul (0.83-4.51); Lymphocyte % 6.3 % (19-41); Mean Corp Hgb Conc 29.7 g/dL (32-36); Mean Corpuscular Hgb 28.4 pg (27.0-32.0); Mean Corpuscular Volume 95.6 fL (81-99); Mean Platelet Vol. 9.6 fl (6.2-12.0); Monocyte% 7.4 % (0-10); NRBC Flagged by Analyzer 0 % (0-5); Neutrophil # 12.63 X10^3/uL (2.7-7.7); Platelet Count 546 K/mm3 (150-450); RBC Distribution Width CV 14.7 % (11.6-14.6); RBC Distribution Width SD 51.5 fl (35.1-43.9); Red Blood Count 3.42 M/mm3 (4.2-5.4); White Blood Count 14.9 K/mm3 (4.4-11.0)
[2023-07-08] MEDS: Ipratropium/Albuterol Sulfate 3 ML AMPUL.NEB INHALATION ×3 (07:33→20:20)
[2023-07-08] MEDS: Budesonide Respules 0.5 MG/2 ML AMPUL.NEB. INHALATION (07:34)
[2023-07-08 08:14] LABS: ALB/GLOB Ratio 0.4 RATIO (0.9-2.4); AST(SGOT) 12 U/L (15-37); Alanine Aminotransfer ALT/SGPT 8 U/L (13-56); Albumin, Serum 1.9 g/dL (3.2-5.0); Alkaline Phosphatase 103 U/L (45-117); Anion Gap 5 (5-15); BUN 14 mg/dL (7-18); BUN/Creat Ratio 10.8 RATIO (10-20); Calcium,Total 9.1 mg/dL (8.5-10.1); Chloride 102 mmol/L (98-107); EST Glomerular Filtration Rate 43 mL/min (>60); Est Glom Filt Rate - Afr Amer 53 mL/min (>60); Estimated Creatinine Clearance 36.26 ml/min; Globulin 4.6 g/dL (2.2-4.2); Glucose 144 mg/dL (74-106); Potassium 4.1 mmol/L (3.5-5.1); Protein, Total 6.5 g/dL (6.4-8.2); Sodium Level 142 mmol/L (136-145); Thyroid Stim Hormone (TSH) 1.37 uIU/mL (0.358-3.74)
--- NOTE | 2023-07-08 08:17 | NURSING ---
I spoke with Hilda at [facility] transfer line and she stated there are no beds at this time.
--- NOTE | 2023-07-08 08:31 | PCM.PN.HOSP ---
Reason for Visit Reason for Visit: Diagnoses Unspecified atrial fibrillation (07/07/23) Chronic obstructive pulmonary disease, unspecified (07/07/23) Pyothorax without fistula (07/07/23) Pleural effusion, not elsewhere classified (07/07/23) Chronic respiratory failure with hypoxia (07/07/23) Personal history of other specified conditions (07/07/23) Subjective Subjective Patient is a 68-year-old lady with recent hospitalization with right lower lobe pneumonia with parapneumonic effusion presented with shortness of breath. Patient diagnosed with empyema. Arrangement made for patient to be [facility] eval Objective Data Objective Data Vital Signs: Vital Signs Temp Pulse Resp BP Pulse Ox O2 Del Method O2 Flow Rate 97.0 F L 78 18 131/65 H 96 Nasal Cannula 3 07/08/23 03:37 07/08/23 03:52 07/08/23 03:52 07/08/23 03:37 07/08/23 03:52 07/08/23 03:52 07/08/23 03:52 Oxygen Flow Rate (L/min) 3 Oxygen Delivery Method Nasal Cannula Weight: 63 kg Body Mass Index (BMI) 23.8 Intake & Output: Intake and Output for Last 24 Hours 07/06/23 07/07/23 07/08/23 23:59 23:59 23:59 Intake Total 1780 / 1780 110 / 110 Output Total 100 / 100 Balance 1680 / 1680 110 / 110 Lab / Micro Data 07/08/23 06:25 07/08/23 06:25 Labs: Laboratory Results - last 24 hr 07/07/23 09:15: WBC 11.7 H, RBC 3.66 L, Hgb 10.7 L, Hct 32.9 L, MCV 89.9, MCH 29.2, MCHC 32.5, RDW Std Deviation 47.1 H, RDW Coeff of Laly 14.4, Plt Count 553 H, MPV 9.2, Immature Gran % (Auto) 0.500, Neut % (Auto) 80.3 H, Lymph % (Auto) 9.3 L, [place] % (Auto) 9.5, Eos % (Auto) 0.1, Baso % (Auto) 0.3, Absolute Neuts (auto) 9.4 H, Absolute Lymphs (auto) 1.09, Nucleated RBC % 0, Sodium 137, Potassium 2.7 L*, Chloride 94 L, Carbon Dioxide 37.0 H, Anion Gap 6, BUN 7, Creatinine 0.46 L, Estim Creat Clear Calc 47.14, Est GFR (MDRD) Af Amer 175, Est GFR (MDRD) Non-Af 145, BUN/Creatinine Ratio 15.3, Glucose 114 H, Calcium 9.5, Magnesium 2.0, Troponin I High Sens 13 07/07/23 13:13: Fluid Source THORACENTESIS, Fluid Color YELLOW, Fluid Appearance CLEAR, Fluid WBC 9.292, Fluid RBC 2, Fluid Tot Cell Count 9.308 H, Fld Polynuclear WBCs # 8.495, Fld Polynuclear WBCs % 91.4, Fluid Mononuclear WBCs 0.797, Fld Mononuclear WBCs % 8.6, Fluid Neutrophils 60, Fluid Lymphocytes 31, Fluid Monocytes 7, Fluid Macrophages 2, Fl Pathologist Comment May follow, Fluid Glucose 7 L*, Fluid Total Protein 3.3, Fluid LDH 876, Fluid Comment 2 SEE COMMENT 07/07/23 15:00: Lactic Acid 0.8 07/07/23 21:45: Sodium 141, Potassium 3.3 L, Chloride 100, Carbon Dioxide 34.0 H, Anion Gap 7, BUN 8, Creatinine 0.63, Estim Creat Clear Calc 47.14, Est GFR (MDRD) Af Amer 121, Est GFR (MDRD) Non-Af 100, BUN/Creatinine Ratio 12.6, Glucose 154 H, Calcium 9.1 07/08/23 06:25: WBC 14.9 H, RBC 3.42 L, Hgb 9.7 L, Hct 32.7 L, MCV 95.6 D, MCH 28.4, MCHC 29.7 L D, RDW Std Deviation 51.5 H, RDW Coeff of Laly 14.7 H, Plt Count 546 H, MPV 9.6, Immature Gran % (Auto) 0.700, Neut % (Auto) 85.0 H, Lymph % (Auto) 6.3 L, [place] % (Auto) 7.4, Eos % (Auto) 0.1, Baso % (Auto) 0.5, Absolute Neuts (auto) 12.6 H, Absolute Lymphs (auto) 0.94, Nucleated RBC % 0, Sodium 142, Potassium 4.1, Chloride 102, Carbon Dioxide 35.0 H, Anion Gap 5, BUN 14, Creatinine 1.30 H, Estim Creat Clear Calc 36.26, Est GFR (MDRD) Af Amer 53 L, Est GFR (MDRD) Non-Af 43 L, BUN/Creatinine Ratio 10.8, Glucose 144 H, Calcium 9.1, Total Bilirubin 0.50, AST 12 L, ALT 8 L, Alkaline Phosphatase 103, Total Protein 6.5, Albumin 1.9 L, Globulin 4.6 H, Albumin/Globulin Ratio 0.4 L, TSH 1.37 Micro: Microbiology 07/07/23 13:13 Fluid - Thoracentesis Fluid Gram Stain - Final Radiography Diagnostic Testing: Radiology Impression Acute Abdomen Series 07/07/23 09:25 IMPRESSION: 1. Increased right subpulmonic pleural effusion causing increased compressive atelectasis of right lung base. 2. Gas in small and large bowel loops but no bowel obstruction. Electronically Signed: Guido Metzger MD at 9:50 EST , Chest X-Ray 07/07/23 13:26 IMPRESSION: Decrease in right pleural effusion with no other change and no complicating features. Electronically Signed: Hosea Mendez MD at 13:43 EST , Physical Exam Narrative GENERAL: cooperative HEENT: Atraumatic; normocephalic EYES; Anicteric, Normal Conjunctiva NECK; supple, normal thyroid, RESPIRATORY: Diminished to auscultation CARDIOVASCULAR: Regular S1 S2, GI: soft, normoactive bowel sounds, : No Renal angle tenderness; EXTREMITIES: No edema, no clubbing, MUSCULOSKELETAL: no muscle wasting NEURO: Awake; no lateralizing signs. SKIN: No Rash PSYCH; Flat affect Assessment & Plan Assessment/Plan (1) Empyema of pleural space: PLAN: Plan Patient is a 68-year-old lady with recent hospitalization with right lower lobe pneumonia with parapneumonic effusion presented with shortness of breath. Patient diagnosed with empyema. Arrangement made for patient to be [facility] eval 1. Acute on chronic empyema ? Patient underwent thoracocentesis during her recent hospitalization consistent with empyema. Presented back with progressive shortness of breath. Pulmonary medicine consulted recommended for patient to be [facility] for cardiothoracic surgery evaluation. Patient has been accepted for transfer at [facility]. Patient was started on broad-spectrum antibiotic therapy with Zosyn and vancomycin pending her transfer 2. Chronic hypoxia ? Secondary to patient empyema as well as COPD. Patient is on oxygen 3 L 3. Hypokalemia ? Corrected per protocol repeat labs ordered for monitoring 4. Recent diagnosis of duodenal ulcer EGD from 06/09/2023 demonstrated erosive esophagitis hiatal hernia and duodenal ulcer with visible vessel that was cauterized. Patient remains on PPI 5. Anemia - Secondary to chronic blood loss anemia monitoring H&H and transfuse if patient becomes symptomatic or hemoglobin falls below 7 6. Paroxysmal A-fib ? Patient had rapid ventricular response during her previous admission. Patient was placed on Eliquis which had to be discontinued due to GI bleed remains on beta-blockers 7. COPD ? Currently not in exacerbation 8. Anxiety disorder ? Patient is on BuSpar 8. DVT prophylaxis ? Bilateral SCDs for now Time spent in the patient's overall evaluation,decision-making process, review of diagnostic data, adjustment of management, discussion with other providers, nursing nursing and ancillary staff involved in patient's care documentation, 50 Minutes Charges/Coding Visit Charges Inpatient E&M: 44147 [place] [id number]
[2023-07-08] MEDS: Ondansetron 4 MG/2 ML Vial IV ×2 (09:21→16:55)
[2023-07-08] MEDS: 0.9% Saline Lock 10 ML Syringe IV ×2 (09:21→16:55)
[2023-07-08] MEDS: busPIRone 5 MG Tablet 10 MG PO ×2 (09:25→22:26)
[2023-07-08] MEDS: Pantoprazole Sodium 40 MG Tablet PO ×2 (09:25→22:26)
[2023-07-08] MEDS: Metoprolol Tartrate 25 MG Tablet PO ×2 (09:26→22:26)
[2023-07-08] MEDS: Vancomycin IV 500 MG/100 ML BAG 100 MG IV (09:29)
--- NOTE | 2023-07-08 09:42 | CASEMGMT ---
Insurance review for hospitals In-network with [facility] [employer] insurance if transfer is recommended is as follows: [facility], [place], [facility], [facility], [facility], [facility], [facility]), and . Bhavana Ignacio, Discharge Planning Asst.
--- NOTE | 2023-07-08 10:19 | CASEMGMT ---
JAMI GUERRERO NOTE: Bindu @ [facility] made aware pt admitted to [facility] and plan is to transfer to tertiary hospital/awaiting bed @ [facility]. Margarito GOODMAN RN CM
--- NOTE | 2023-07-08 13:12 | CHAPLAIN ---
Type of Pastoral Visit _x__ Initial Visit ___ Follow-up Visit ___ On-call Visit ___ General Patient Visit ___ Spiritual Assessment ___ Family Conference ___ Bereavement ___ Rapid Response ___ Code Blue ___ Other (describe below) Pastoral Care Referral From _x__ Patient ___ Family ___ Nurse ___ Physician ___ Superintendent Building ___ Assistant Mechanic ___ Other (describe below) Sacrament/Intervention _x__ Active listening ___ Anointing ___ Protestant ___ Bereavement ___ Communion ___ [place] exploration ___ ___ Life review _x__ Prayer ___ Reconciliation ___ Sacrament of Sick _x__ Supportive presence ___ Wedding ___ Other (describe below) Pastoral Comments 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
[2023-07-08 13:45] LABS: M R Staph aureus DNA By PCR Negative (Negative); Probe Check PASS; Specimen Processing Control PASS
--- NOTE | 2023-07-08 14:27 | EX.PCM.CONCC ---
Assessment & Plan Assessment/Plan (1) Empyema of pleural space: (2) Anemia requiring transfusions: (3) Elevated blood pressure reading without diagnosis of hypertension: (4) Chronic hypoxemic respiratory failure: (5) EARNEST (acute kidney injury): (6) Atrial fibrillation: PLAN: Plan Assessment and Plan -Right lung empyema Patient underwent right-sided thoracentesis which showed yellow cloudy fluid. Analysis shows exudative fluid with very low glucose of 7 with high LDH and elevated white count and neutrophil predominance. Patient had right-sided pneumonia back in June and a parapneumonic effusion which was drained twice. She was treated with 10 day course antibiotics. At that time there were septations seen on thoracic ultrasound. Review of thoracic ultrasound on this admission shows persistent septations. Patient needs pigtail chest tube with tPA dornase and possibly will need VATS given the chronicity of her effusion in order to better control this infection. These capabilities are not available in our hospital. She is awaiting transfer for further thoracic evaluation Continue [facility]. MRSA swab was negative DC vancomycin Patient will require at least 4-6 weeks of antibiotics depending on follow-up scan of the chest and her response. follow up pleural fluid cultures -COPD appears stable cont budesonide and Duonebs -Chronic hypoxic resp failure, pt is at baseline 2-3L via NC -Chronic anemia -PUD -Out of bed to chair -DVT ppx as appropriate HPI Consult Data Date of Consult: 07/08/23 HPI Narrative Reason for Consultation: empyema HPI Narrative: SNEHA CARDENAS, is a 68 F with pmhx of severe copd w/chronic hypoxic respiratory failure, former smoker, history of frequent GI bleed due to peptic ulcer disease, and and chronic anemia. Patient presented with abdominal pain nausea and vomiting as well as pleuritic chest pain. Patient has had recent admission in June with right-sided pneumonia and parapneumonic pleural effusion. At that time she underwent thoracentesis and completed 10 days of antibiotics. She underwent another thoracentesis shortly after the initial 1 but labs were not sent. She reports that she has been feeling unwell overall since then. She denies hematemesis, melena or fevers. She reports that she just feels nauseous and has vomited a few times. She also has pleuritic chest pain. Patient underwent abdominal CT scan for abdominal pain which showed bases of the lung with persistent right-sided pleural effusion. She underwent ultrasound-guided thoracentesis by IR which showed septation on thoracic ultrasound and could only drain 100 cc of cloudy fluid. [facility], [facility] Medical History (Updated 07/08/23 @ 14:[address] Pao Weeks MD) Anxiety Asthma Atrial fibrillation Benign essential hypertension Benign essential tremor COPD (chronic obstructive pulmonary disease) Former smoker Former tobacco use Lung nodules Migraines On home oxygen therapy Pneumonia due to COVID-19 virus Home Medications albuterol sulfate 90 mcg/actuation aerosol inhaler (Ventolin HFA) 2 puff inhalation Q4H PRN PRN Shortness Of Breath 08/28/15 [History Last Taken 07/06/23] montelukast 10 mg tablet 10 mg PO QHS ALLERGIES 02/25/18 [History Last Taken 07/06/23] fluticasone fur. 100 mcg-umeclid 62.5 mcg-vilant 25 mcg inhalat.powder (Trelegy Ellipta) 1 inh inhalation DAILY COPD 05/01/21 [History Last Taken 07/06/23] fluticasone propionate 50 mcg/actuation nasal spray,suspension 2 spray intranasal QHS ALLERGIES 05/01/21 [History Last Taken 07/06/23] buspirone 5 mg tablet 10 mg (2 x 5 mg) PO BID anxiety 30 days #120 tabs 06/16/23 [Rx Last Taken 07/06/23] metoprolol tartrate 25 mg tablet 25 mg PO BID HTN 30 days #60 tabs 06/16/23 [Rx Last Taken 07/06/23] pantoprazole 40 mg tablet,delayed release (Protonix) 40 mg PO BID GERD 30 days #60 tabs 06/23/23 [Rx Last Taken 07/06/23] sucralfate 1 gram tablet 1 g PO 0700,1100,1600 GI 30 days #90 tabs 06/23/23 [Rx Last Taken 07/06/23] Allergy/AdvReac Type Severity Reaction Status Date / Time cephalexin monohydrate Allergy Chest Verified 07/07/23 08:52 [From Keflex] tightness Surgical History H/O bilateral salpingectomy History of herniorrhaphy Hx of cholecystectomy Hx of tonsillectomy Social History adopted: Yes household members: family housing: house Smoking Status: Former smoker alcohol intake: never substance use type: does not use ROS ROS Narrative Pertinent positives and pertinent negatives as noted in HPI. All other systems were reviewed and are negative Physical Exam Narrative General alert oriented in no acute distress HEENT. Normocephalic atraumatic, pupils equal and reactive Respiratory reduced air entry worse on the R, no wheezing Cardiac S1-S2, regular rate and rhythm GI abdomen soft and nontender MSK no lower extremity edema Skin no rashes Neuro moves all extremities, no dysarthria, no facial droop Medical Records Data Medical Nutrition Assessment Dietitian: Malnutrition Criteria Met Start: 07/08/23 12:01 Freq: Status: Active Protocol: Document 07/08/23 12:01 (Rec: 07/08/23 12:01 AG Desktop) Nutrition Malnutrition Evidence of Malnutrition Exists Yes Malnutrition (severe): Acute Illness/Injury Evidenced By Suboptimal Energy Intake ( Severe),Weight Loss (Severe) Clinical Problem Acute Disease or Injury Related Malnutrition Etiology severe, acute malnutrition r/t GI dysfunction Signs/Symptoms as evidenced by unintentional 9% wt loss < 2 months, estimated PO intake meeting < 50% of estimated energy needs > 5 days Status Active Problem Recommendation Dietitian Recommendations/Changes continue regular diet as tolerated; offer ensure w/ medpass if pt agreeable- refusing at this time. Lab / Micro Data 07/08/23 06:25 07/08/23 06:25 Labs: Laboratory Results - last 24 hr 07/07/23 13:13: Fluid Source THORACENTESIS, Fluid Color YELLOW, Fluid Appearance CLEAR, Fluid WBC 9.292, Fluid RBC 2, Fluid Tot Cell Count 9.308 H, Fld Polynuclear WBCs # 8.495, Fld Polynuclear WBCs % 91.4, Fluid Mononuclear WBCs 0.797, Fld Mononuclear WBCs % 8.6, Fluid Neutrophils 60, Fluid Lymphocytes 31, Fluid Monocytes 7, Fluid Macrophages 2, Fl Pathologist Comment May follow, Fluid Glucose 7 L*, Fluid Total Protein 3.3, Fluid LDH 876, Fluid Comment 2 SEE COMMENT 07/07/23 15:00: Lactic Acid 0.8 07/07/23 21:45: Sodium 141, Potassium 3.3 L, Chloride 100, Carbon Dioxide 34.0 H, Anion Gap 7, BUN 8, Creatinine 0.63, Estim Creat Clear Calc 47.14, Est GFR (MDRD) Af Amer 121, Est GFR (MDRD) Non-Af 100, BUN/Creatinine Ratio 12.6, Glucose 154 H, Calcium 9.1 07/08/23 06:25: WBC 14.9 H, RBC 3.42 L, Hgb 9.7 L, Hct 32.7 L, MCV 95.6 D, MCH 28.4, MCHC 29.7 L D, RDW Std Deviation 51.5 H, RDW Coeff of Laly 14.7 H, Plt Count 546 H, MPV 9.6, Immature Gran % (Auto) 0.700, Neut % (Auto) 85.0 H, Lymph % (Auto) 6.3 L, [place] % (Auto) 7.4, Eos % (Auto) 0.1, Baso % (Auto) 0.5, Absolute Neuts (auto) 12.6 H, Absolute Lymphs (auto) 0.94, Nucleated RBC % 0, Sodium 142, Potassium 4.1, Chloride 102, Carbon Dioxide 35.0 H, Anion Gap 5, BUN 14, Creatinine 1.30 H, Estim Creat Clear Calc 36.26, Est GFR (MDRD) Af Amer 53 L, Est GFR (MDRD) Non-Af 43 L, BUN/Creatinine Ratio 10.8, Glucose 144 H, Calcium 9.1, Total Bilirubin 0.50, AST 12 L, ALT 8 L, Alkaline Phosphatase 103, Total Protein 6.5, Albumin 1.9 L, Globulin 4.6 H, Albumin/Globulin Ratio 0.4 L, TSH 1.37 07/08/23 12:10: MRSA (PCR) Negative Micro: Microbiology 07/07/23 13:13 Fluid - Thoracentesis Fluid Gram Stain - Final 07/07/23 13:13 Fluid - Thoracentesis Fluid Body Fluid Culture - Preliminary No growth-Final to follow Charges/Coding Visit Charges Inpatient E&M: 56252 Init Hosp L3
[2023-07-08] MEDS: proCHLORPERazine 10 MG/2 ML Vial IV (21:08)
[2023-07-08] MEDS: Fluticasone 0.05% 1 SPRAY NASAL.SRY NASAL (22:12)
--- NOTE | 2023-07-08 22:15 | CPS ---
Pt has severe tremors. She refused her pulmicort aerosol, but took her duoneb. RT discussed medicines with pt but she still didn't want the pulmicort. RN notified.
--- NOTE | 2023-07-08 23:20 | EKG12_ITS ---
Test Reason : a-fib Blood Pressure : / mmHG Vent. Rate : 147 BPM Atrial Rate : 000 BPM P-R Int : 000 ms QRS Dur : 076 ms QT Int : 292 ms P-R-T Axes : 000 067 -56 degrees QTc Int : 456 ms Critical Test Result: High HR Atrial fibrillation with rapid ventricular response Nonspecific ST and T wave abnormality Abnormal ECG When compared with ECG of 07-JUL-2023 09:12, MANUAL COMPARISON REQUIRED, DATA IS UNCONFIRMED Confirmed by ROB DORANTES, LUCRETIA ([id number]), medical transcription editor RACHEL APARICIO ([id number]) on 07/12/2023 10:17:11 AM Referred By: Donovan Confirmed By:LUCRETIA RIVAS MD
[2023-07-09] VITALS (14 sets, daily range): BP systolic 94–123; BP diastolic 50–71; PULSE 82–136; RESP 23–35; TEMP 36.6–37.1; O2SAT 90–100
[2023-07-09] MEDS: Diltiazem 125 MG in Dextrose 5%-Water (100mL Bag) 100 ML CONT INF (00:02)
--- NOTE | 2023-07-09 02:39 | EKG12_ITS ---
Test Reason : RHYTHM CHANGE Blood Pressure : / mmHG Vent. Rate : 091 BPM Atrial Rate : 091 BPM P-R Int : 176 ms QRS Dur : 076 ms QT Int : 368 ms P-R-T Axes : 043 077 075 degrees QTc Int : 452 ms Normal sinus rhythm Normal ECG When compared with ECG of 08-JUL-2023 23:20, MANUAL COMPARISON REQUIRED, DATA IS UNCONFIRMED Confirmed by ROB DORANTES, LUCRETIA ([id number]), desk editor RACHEL APARICIO ([id number]) on 07/12/2023 10:14:32 AM Referred By: Confirmed By:LUCRETIA RIVAS MD
[2023-07-09] MEDS: dilTIAZem CD 240 MG Capsule PO (03:53)
[2023-07-09] MEDS: Piperacil/Tazobactam 3.375 GM in 0.9% Normal Saline (50mL MB+) 50 ML IV (04:38)
[2023-07-09] MEDS: Sucralfate 1 GM Tablet PO (06:28)
[2023-07-09] MEDS: Ipratropium/Albuterol Sulfate 3 ML AMPUL.NEB INHALATION (07:28)
--- NOTE | 2023-07-09 08:14 | PCM.DC.SUM ---
Providers Date of Admission: 07/07/23 Date of Discharge: 07/09/23 Primary Care Physician: Dr. Julio Draper MD Consultations 07/07/23 21:02 Consult: [place] / Pulmonary Medicine Routine Consulting Provider: Pulmonary Medicine suly [place] Reason for Consult: empyema, awaiting transfer EMERGENT Consult: No MD Notified: Yes Date Notified: 07/07/23 Time Notified: 21:02 Method of Notification: ED Physician Initiated Reason For Visit: EMPYEMA Diagnosis Discharge Diagnosis (1) Empyema of pleural space: Status: Acute Code(s): J86.9 - Pyothorax without fistula (2) Anemia requiring transfusions: Status: Acute Code(s): D64.9 - Anemia, unspecified (3) Elevated blood pressure reading without diagnosis of hypertension: Status: Acute Code(s): R03.0 - Elevated blood-pressure reading, without diagnosis of hypertension (4) Chronic hypoxemic respiratory failure: Status: Chronic Code(s): J96.11 - Chronic respiratory failure with hypoxia (5) EARNEST (acute kidney injury): Status: Acute Code(s): N17.9 - Acute kidney failure, unspecified (6) Atrial fibrillation: Status: Acute Code(s): I48.91 - Unspecified atrial fibrillation Plan Patient is a 68-year-old lady with recent hospitalization with right lower lobe pneumonia with parapneumonic effusion presented with shortness of breath. Patient diagnosed with empyema. Arrangement made for patient to be transferred to [facility] for CT surgery eval 1. Acute on chronic empyema ? Patient underwent thoracocentesis during her recent hospitalization consistent with empyema. Presented back with progressive shortness of breath. Pulmonary medicine consulted recommended for patient to be transferred to [facility] for cardiothoracic surgery evaluation. Patient has been accepted for transfer at [facility]. Patient was started on broad-spectrum antibiotic therapy with Zosyn and vancomycin pending her transfer- -07/09/2023; patient was transferred to [facility] once bed was obtained 2. Chronic hypoxia ? Secondary to patient empyema as well as COPD. Patient is on oxygen 3 L 3. Hypokalemia ? Corrected per protocol repeat labs ordered for monitoring 4. Recent diagnosis of duodenal ulcer EGD from 06/09/2023 demonstrated erosive esophagitis hiatal hernia and duodenal ulcer with visible vessel that was cauterized. Patient remains on PPI 5. Anemia - Secondary to chronic blood loss anemia monitoring H&H and transfuse if patient becomes symptomatic or hemoglobin falls below 7 6. Paroxysmal A-fib ? Patient had rapid ventricular response during her previous admission. Patient was placed on Eliquis which had to be discontinued due to GI bleed remains on beta-blockers 7. COPD ? Currently not in exacerbation 8. Anxiety disorder ? Patient is on BuSpar 8. DVT prophylaxis ? Bilateral SCDs for now Time spent in the patient's overall evaluation,decision-making process, review of diagnostic data, adjustment of management, discussion with other providers, nursing nursing and ancillary staff involved in patient's care documentation, 35 Minutes Medications at Discharge Home Medications albuterol sulfate 90 mcg/actuation aerosol inhaler (Ventolin HFA) 2 puff inhalation Q4H PRN PRN Shortness Of Breath 08/28/15 montelukast 10 mg tablet 10 mg PO QHS ALLERGIES 02/25/18 fluticasone fur. 100 mcg-umeclid 62.5 mcg-vilant 25 mcg inhalat.powder (Trelegy Ellipta) 1 inh inhalation DAILY COPD 05/01/21 fluticasone propionate 50 mcg/actuation nasal spray,suspension 2 spray intranasal QHS ALLERGIES 05/01/21 buspirone 5 mg tablet 10 mg (2 x 5 mg) PO BID anxiety 30 days #120 tabs 06/16/23 metoprolol tartrate 25 mg tablet 25 mg PO BID HTN 30 days #60 tabs 06/16/23 pantoprazole 40 mg tablet,delayed release (Protonix) 40 mg PO BID GERD 30 days #60 tabs 06/23/23 sucralfate 1 gram tablet 1 g PO 0700,1100,1600 GI 30 days #90 tabs 06/23/23 Hospital Course Summary of Care Provided Minutes Spent on Discharge: 35 Physical Exam Narrative GENERAL: cooperative HEENT: Atraumatic; normocephalic EYES; Anicteric, Normal Conjunctiva NECK; supple, normal thyroid, RESPIRATORY: Diminished to auscultation CARDIOVASCULAR: Regular S1 S2, GI: soft, normoactive bowel sounds, : No Renal angle tenderness; EXTREMITIES: No edema, no clubbing, MUSCULOSKELETAL: no muscle wasting NEURO: Awake; no lateralizing signs. SKIN: No Rash PSYCH; Flat affect Medical Records Data Medical Nutrition Assessment Dietitian: Malnutrition Criteria Met Start: 07/08/23 12:01 Freq: Status: Active Protocol: Document 07/08/23 12:01 (Rec: 07/08/23 12:01 Desktop) Nutrition Malnutrition Evidence of Malnutrition Exists Yes Malnutrition (severe): Acute Illness/Injury Evidenced By Suboptimal Energy Intake ( Severe),Weight Loss (Severe) Clinical Problem Acute Disease or Injury Related Malnutrition Etiology severe, acute malnutrition r/t GI dysfunction Signs/Symptoms as evidenced by unintentional 9% wt loss < 2 months, estimated PO intake meeting < 50% of estimated energy needs > 5 days Status Active Problem Recommendation Dietitian Recommendations/Changes continue regular diet as tolerated; offer ensure w/ medpass if pt agreeable- refusing at this time. Weight / BMI Weight Weight: 63 kg Body Mass Index (BMI) 23.8 ABG / Lab / Microbiology Data 07/08/23 06:25 07/08/23 06:25 Laboratory: Laboratory Results - last 24 hr 07/08/23 06:25: Sodium 142, Potassium 4.1, Chloride 102, Carbon Dioxide 35.0 H, Anion Gap 5, BUN 14, Creatinine 1.30 H, Estim Creat Clear Calc 36.26, Est GFR (MDRD) Af Amer 53 L, Est GFR (MDRD) Non-Af 43 L, BUN/Creatinine Ratio 10.8, Glucose 144 H, Calcium 9.1, Total Bilirubin 0.50, AST 12 L, ALT 8 L, Alkaline Phosphatase 103, Total Protein 6.5, Albumin 1.9 L, Globulin 4.6 H, Albumin/Globulin Ratio 0.4 L, TSH 1.37 07/08/23 12:10: MRSA (PCR) Negative Microbiology: Microbiology 07/07/23 13:13 Fluid - Thoracentesis Fluid Gram Stain - Final 07/07/23 13:13 Fluid - Thoracentesis Fluid Body Fluid Culture - Preliminary No growth-Final to follow D/C Instructions Discharge Diet: No restrictions Discharge Activity: Return to Normal Activity Call your doctor if you observe: Fever of 101 or Higher, Shortness of breath, Fainting spells and Chest pain Meaningful Use Info Meaningful Use Diagnoses (Choose all that apply): None applicable Discharge Plan Admission Admit Date/Time: 07/07/23 17:21 Attending Provider: Edis Mayo Primary Care Provider: Julio Drapre Consulting Providers: Kapil Doyle; Adrian Evangelista; Pao Weeks; Chris Shepard; Ford Graff; Sheridan Jovel NP; Diana Santillan Discharge Orders/Prescriptions Prescriptions: Continued albuterol sulfate [Ventolin HFA] 1 INHALER inhaler 2 puff inhalation Q4H PRN PRN (Reason: Shortness Of Breath) Patient Comments: shortness of breath montelukast 10 MG tablet 10 mg PO QHS fluticasone propionate 50 mcg/actuation spray,suspension 2 spray INTRANASAL QHS Patient Comments: Use 1 [place] in each nostril once daily. Trelegy Ellipta 100-62.5-25 mcg blister with device 1 inh INHALATION DAILY Patient Comments: Inhale 1 Puff as instructed once daily. buspirone 5 mg Tablet 10 mg PO BID 30 Days Qty: 120 0RF metoprolol tartrate 25 mg Tablet 25 mg PO BID 30 Days Qty: 60 0RF sucralfate 1 gram Tablet 1 g PO 0700,1100,1600 30 Days Qty: 90 1RF pantoprazole [Protonix] 40 mg tablet,delayed release (DR/EC) 40 mg PO BID 30 Days Qty: 60 3RF Rx Instructions: 40 mg twice daily for 3 months and then once daily. Referrals / Follow Up: Julio Draper MD [Primary Care Provider] - Within 2 Weeks Disposition Disposition (needs filled in before D/C Order can be placed): Acute Care Hospital Charges/Coding Visit Charges Inpatient E&M: 64816 Disch Hosp >30min
[2023-07-09] MEDS: Pantoprazole Sodium 40 MG Tablet PO (09:05)
[2023-07-09] MEDS: busPIRone 5 MG Tablet 10 MG PO (09:05)
[2023-07-09] MEDS: Metoprolol Tartrate 25 MG Tablet PO (09:05)
[2023-07-11 09:28] LABS: Pathologist Comment/Body Fluid Reviewed
== END 2023-07-09 10:24 | disposition short-term general hospital (02) | DRG 178 ==
LOC: ED 14:45 → PCU 17:43
PROVIDERS: Internal Medicine; Admitting Provider Internal Medicine; Emergency Provider Emergency Medicine; PCP Internal Medicine; Visit Provider Internal Medicine
DX: J86.9 Pyothorax without fistula (principal); J90 Pleural effusion, not elsewhere classified; N17.9 Acute kidney failure, unspecified; J96.11 Chronic respiratory failure with hypoxia; K26.9 Duodenal ulcer, unspecified as acute or chronic, without hemorrhage or perforation; J44.9 Chronic obstructive pulmonary disease, unspecified; I48.0 Paroxysmal atrial fibrillation; I10 Essential (primary) hypertension; D50.0 Iron deficiency anemia secondary to blood loss (chronic); E87.6 Hypokalemia; J98.01 Acute bronchospasm; K21.9 Gastro-esophageal reflux disease without esophagitis; F41.9 Anxiety disorder, unspecified; Z86.16 Personal history of COVID-19; Z87.891 Personal history of nicotine dependence; Z79.51 Long term (current) use of inhaled steroids
CPT/HCPCS: 32555; 36415; 71046; 74022; 80048; 80053; 80202; 82945; 83605; 83615; 83735; 84157; 84443; 84484; 85025; 87040; 87070; 87075; 87205; 87641; 88108; 88305; 88313; 89050; 93005; 94640; 94762; 97802; 99252; 99285; J7050; A4216; G0463; J2405

== ENCOUNTER 2023-09-01 09:22 | Outpatient (CLI) | payer OTHER, SELFPAY ==
[2023-09-01] VITALS (7 sets, daily range): BP systolic 108–132; BP diastolic 46–82; PULSE 64–83; RESP 16–18; TEMP 35.9–36.2; O2SAT 100
== END 2023-09-01 09:23 | disposition home or self-care (01) ==
LOC: MEDOUTP 09:23
PROVIDERS: PCP Internal Medicine; Referring Provider Internal Medicine; Visit Provider Internal Medicine
DX: D64.9 Anemia, unspecified (principal)
CPT/HCPCS: 36415; 36430; 86850; 86900; 86901; 86920; 86922; J7040; P9016; A4216

== ENCOUNTER 2023-12-22 05:28 | Day surgery (SDC) | payer OTHER, SELFPAY ==
[2023-12-22] VITALS (9 sets, daily range): BP systolic 76–98; BP diastolic 48–60; PULSE 62–69; RESP 16–18; TEMP 36.3–36.6; O2SAT 94–98; BMI 22.9
[2023-12-22] MEDS: 0.9% Normal Saline (500mL Bag) 500 ML 15 ML IV (06:22)
--- NOTE | 2023-12-22 06:30 | COL_PTH ---
PATIENT: SNEHA CARDENAS LOC: EN U#:[id number] AGE/SX: 68/F ROOM: RE12/22/[address]: Dr. Ramon Antunez DO : 1955 BED: DIS: 12/22/2023 SPEC #: [id number] RECD: 12/22/23 08:07 STATUS: RACHEL VASQUES #: [id number] CARLOS: 12/22/23 06:[address]: Ramon Antunez DEPT: SURGICAL PATHOLOGY RECD BY: Dahlia Gillis ENTERED: 12/22/23 11:40 SP TYPE: COLON OTHR DR: Dr. Julio Draper MD Tissues: Colon, NOS Procedures: Surgery Specimen Level V HEADER OPERATION: Colonoscopy with hemostasis, EGD with capsule placement PRE-OP DIAGNOSIS: Anemia TISSUE SUBMITTED: Duodenal mass biopsy MICROSCOPIC DIAGNOSIS Duodenal mass, biopsy: Fragments of benign superficial duodenal mucosa. No evidence of malignancy. AM/mr 12/23/2023 MICROSCOPIC DESCRIPTION Slides are reviewed. GROSS DESCRIPTION Received in fixative is one container labeled with the patient's name and designated Duodenal mass biopsy. The specimen consists of two irregular fragments of light ott soft tissue that in aggregate measure 0.6 x 0.2 x 0.1 cm. The specimen is totally submitted in one cassette. AM/mr 12/22/2023 TC:5 CPT:53933
--- NOTE | 2023-12-22 06:42 | PCM.PRE.AN2 ---
ASA Classification* ASA Classification ASA Classification: 3 Assessment & Plan Anesthesia* Anesthesia Assessment Anesthesia Assessment: Discussed sedation and/or anesthesia options, risks, benefits, and alternatives with patient/parents/legal guardian/POA. Questions invited. The patient/parents/legal guardian/POA seems to understand and agrees to proceed with anesthesia plan. Reviewed the physical assessment, medical history, allergy history and patient home medications list prior to surgery/procedure/anesthetic and documented any changes. Performed airway and anesthesia risk assessments. 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 When Was Last Pacemaker Check QUESTION #4 FULL TEXT: You/Your Family Experience fever (hyperthermia) with Anesthesia Last Oral Intake Last Oral intake: Last Oral Intake NPO since 23:00 12/22/23 06:05 Meds taken in AM with sips of Yes 12/22/23 06:05 water? Meds patient instructed to take am of surgery PONV PONV - plate slitter and inspector: PONV - plate slitter and inspector Female Yes 12/19/23 14:51 HX of Motion Sickness No 12/19/23 14:51 HX of N/V After Surgery No 12/19/23 14:51 Non-Smoker Yes 12/19/23 14:51 Duration of Surgery greater No 12/19/23 14:51 than 60 minutes Number of Risk Factors 2 12/19/23 14:51 PONV Score Moderate Risk 12/19/23 14:51 Height & Weight Height & Weight: Anesthesia: Height & Weight Height 5 ft 3 in 12/22/23 06:05 Weight: 58.695 kg 12/22/23 06:05 Body Mass Index (BMI) 22.9 12/22/23 06:05 Respiratory Assessment Respiratory Assessment - plate slitter and inspector: Respiratory Tract Infection Hx - plate slitter and inspector Hx Respiratory Tract Infection No 12/19/23 14:51 STOP Sleep Apnea STOP Sleep Apnea - plate slitter and inspector: STOP Sleep Apnea - plate slitter and inspector Hx Hypertension Yes: CONTROLLED ON MED 12/19/23 14:51 Hx Sleep Apnea No 12/19/23 14:51 CPAP BIPAP Do you snore loudly (louder Yes 12/19/23 14:51 than talking or can be heard Do you often feel tired/ No 12/19/23 14:51 fatigued/ sleepy during daytime? Has anyone observed you stop No 12/19/23 14:51 breathing during sleep? STOP Results Positive 12/19/23 14:51 QUESTION #5 FULL TEXT : Do you snore loudly (louder than talking or can be heard through closed doors)? Tobacco Use History Tobacco Use History - plate slitter and inspector: Tobacco Use History - plate slitter and inspector Tobacco Use Cigarettes 04/27/21 08:57 Smoking Status Former smoker 12/19/23 14:51 Hx Tobacco Use No 12/19/23 14:51 Years Smoking Packs Smoked per Day Smoking Cessation Date was Yes - quit smoking within 15 12/19/23 14:51 within the last 15 years years Hx Smoking Cessation Date 04/23/14 12/19/23 14:51 Hx Smoking Cessation Counseling Hematologic Medial History Hematologic Hx - plate slitter and inspector: Hematologic Medical Hx - patch driller Hx of Blood Transfusion Yes 12/19/23 14:51 Hx of Transfusion in last 3 Yes 12/19/23 14:51 Months Date of Last Transfusion (if 09/202312/19/23 14:51 within last 3 months) Ever experience any problems No 12/19/23 14:51 with transfusion(s)? Specify any problems Hx of Preganancy in last 3 No 12/19/23 14:51 Months Nurse Filling Out Transfusion VCHRISTIN 12/19/23 14:51 & Questions: Date: 12/19/23 12/19/23 14:51 Time: 14:53 12/19/23 14:51 Patient unable to answer at this time (ie. confused, unrespo /Reproduction History /Reproductive History - plate slitter and inspector: /Reproductive Hx- plate slitter and inspector Hx Now Gestational Age (in weeks): EDC: Hx Hx Para Hx Section SAB Active Medications Active Medications: Current Medications Generic Name Dose Route Start Last Admin Trade Name Freq PRN Reason Stop Dose Admin Sodium Chloride 500 mls @ 15 mls/hr 12/22/23 06:15 12/22/23 06:22 IV 15 mls/hr .[id number] FAUSTO Administration KVO Anesthesia Focused Assessment* Temperature: 97.4 F Pulse Rate: 64 Blood Pressure: 98/52 Respiratory Rate: 18 Pulse Ox: 98 Oxygen Flow Rate (L/min): 3 Airway Assessment Mouth opens: >3 cm Mallampati Score: II Teeth Condition: Intact Neck Range of motion (ROM): Full ROM Focused Labs Anesthesia Preop lab: CBC WBC 14.9 K/mm3 (4.4-11.0) H 07/08/23 06:25 RBC 3.42 M/mm3 (4.2-5.4) L 07/08/23 06:25 Hgb 9.7 g/dL (12.0-15.0) L 07/08/23 06:25 Hct 32.7 % (37-47) L 07/08/23 06:25 Plt Count 546 K/mm3 (150-450) H 07/08/23 06:25 CHEMISTRY Potassium 4.1 mmol/L (3.5-5.1) 07/08/23 06:25 Sodium 142 mmol/L (136-145) 07/08/23 06:25 Magnesium 2.0 mg/dL (1.6-2.6) 07/07/23 09:15 Phosphorus 2.6 mg/dL (2.5-4.9) 12/01/22 06:03 BUN 14 mg/dL (7-18) 07/08/23 06:25 Creatinine 1.30 mg/dL (0.55-1.02) H 07/08/23 06:25 Glucose 144 mg/dL (74-106) H 07/08/23 06:25 TSH 1.37 uIU/mL (0.358-3.74) 07/08/23 06:25 COAG PT 14.5 SECONDS (11.7-14.9) 07/05/23 15:45 Urine Test Negative Negative 06/20/23 17:00 Review of Systems (Anesthesia) ROS Narrative System reviewed and no additional complaints, except as documented. [facility] Medical History (Updated 12/19/23 @ 14:51 by Soheila Sesay) Post-menopausal History of steroid therapy History of renal dialysis Blackout Gastric reflux Emphysema, unspecified Shortness of breath on exertion Normal Holter exam History of echocardiogram Hypertension Cardiology follow-up encounter History of heart attack History of atrial fibrillation Hemodialysis catheter malfunction Former cigarette smoker GERD (gastroesophageal reflux disease) Hyperlipidemia History of GI bleed Pleural effusion ESRD (end stage renal disease) on dialysis Essential hypertension NSTEMI (non-ST elevated myocardial infarction) EARNEST (acute kidney injury) Hx of ulcer disease Former smoker Atrial fibrillation Elevated blood pressure reading without diagnosis of hypertension Chronic hypoxemic respiratory failure Acute bronchospasm Acute exacerbation of chronic obstructive pulmonary disease Empyema of pleural space Syncope Bleeding ulcer Anemia requiring transfusions Lung nodules Pleurisy On home oxygen therapy Migraines Hyperglycemia Elevated serum creatinine Sinus tachycardia Fever and chills Dyspnea on exertion Acute bronchospasm COPD exacerbation Leukocytosis Community acquired pneumonia Anxiety Benign essential tremor Former tobacco use Pneumonia due to COVID-19 virus Asthma COPD (chronic obstructive pulmonary disease) Tobacco use Tremor Benign essential hypertension Home Medications ?Medication ?Instructions ?Recorded ?Last Taken ?Type albuterol sulfate 90 mcg/actuation 2 puff inhalation Q4H PRN PRN 08/28/15 12/22/23 04:30 History aerosol inhaler (Ventolin HFA) Shortness Of Breath montelukast 10 mg tablet 10 mg PO QHS ALLERGIES 02/25/18 12/21/23 History fluticasone fur. 100 mcg-umeclid 1 inh inhalation DAILY COPD 05/01/21 12/22/23 04:30 History 62.5 mcg-vilant 25 mcg inhalat.powder (Trelegy Ellipta) fluticasone propionate 50 2 spray intranasal QHS ALLERGIES 05/01/21 12/22/23 04:30 History mcg/actuation nasal spray,suspension metoprolol tartrate 25 mg tablet 25 mg PO BID HTN 30 days #60 tabs 06/16/23 12/22/23 04:30 Rx pantoprazole 40 mg tablet,delayed 40 mg PO BID GERD 30 days #60 tabs 06/23/23 12/21/23 Rx release (Protonix) sucralfate 1 gram tablet 1 g PO 0700,1100,1600 GI 30 days 06/23/23 07/06/23 Rx #90 tabs amlodipine 5 mg tablet 5 mg PO DAILY 09/23/23 12/22/23 04:30 History atorvastatin 40 mg tablet 40 mg PO QHS 09/23/23 12/21/23 History ipratropium 0.5 mg-albuterol 3 mg 3 ml inhalation Q6H PRN shortness 09/23/23 Unknown History (2.5 mg base)/3 mL nebulization of breath or wheezing soln isosorbide mononitrate 60 mg 60 mg PO DAILY 09/23/23 12/22/23 04:30 History tablet,extended release 24 hr nitroglycerin 0.4 mg sublingual 0.4 mg sublingual Q5-15M PRN chest 09/23/23 Unknown History tablet pain ondansetron 4 mg disintegrating 4 mg PO Q8H PRN nausea and vomiting 09/23/23 Unknown History tablet polyethylene glycol 3350 17 17 g PO DAILY PRN constipation 09/23/23 Unknown History gram/dose oral powder buspirone 10 mg tablet 10 mg PO BID 09/27/23 12/21/23 History sodium sul 1.479 gram-potas ch See Rx Instructions PO PER PKG DIR 12/08/23 Unknown Rx 0.188 gram-magnes sul 0.225 gram #24 tabs tablet (Sutab) Allergy/AdvReac Type Severity Reaction Status Date / Time cephalexin monohydrate (From Allergy Chest Verified 12/22/23 05:57 Keflex) tightness Family History Other Adopted Surgical History (Updated 12/19/23 @ 14:51 by Soheila Sesay) History of cardiac catheterization Hx of total shoulder replacement Hx of chest tube placement Hx of esophagogastroduodenoscopy H/O bilateral salpingectomy History of herniorrhaphy Hx of tonsillectomy Hx of cholecystectomy Social History adopted: Yes household members: family housing: house Smoking Status: Former smoker how long ago did patient quit smokin years ago alcohol intake: never substance use type: does not use caffeine: Yes Type: coffee Number of servings: 1
--- NOTE | 2023-12-22 06:45 | HP.PCM_ITS ---
History and Physical Date of Admission: 12/22/23 SNEHA CARDENAS, is a 68 F who presents to the office today for initial consult EGD 06.21.23 Z-line irregular, 38 cm from the incisors. Medium-sized hiatal hernia. Normal stomach. Oozing duodenal ulcers with a visible vessel. Injected. Treated with a heater probe. Non-bleeding duodenal ulcer with no stigmata of bleeding. Biopsied. Oozing duodenal ulcer with pigmented material. Treated with a heater probe. *BGI established 6..24 pt denies GI symptoms of concern at this time. Pt reports nausea that occurs after dialysis. Reports 2 formed bm per day; denies blood in the stool. Continues with pantoprazole. ROS Const Constitutional: Positive for fatigue and weakness; No fever(s) or weight change ENT ENT: No difficulty swallowing Gastro GI: Positive for nausea/dyspepsia; No abdominal pain, belching, bloating, change in bowel habits, change in stool character, coffee ground emesis, constipation, cramping, diarrhea, heartburn, difficulty swallowing, feeling full early, excessive flatus, incontinent of stools, Vomiting blood/hematemesis, Blood in stool, loose stools, Black,tarry stools, pain with swallowing, vomiting or other Musc Musculoskeletal: No joint pain Skin Skin: Positive for dry skin; No yellowing of the eye or itchy eyes Neuro Neurology: Positive for weakness and tremor(s) Psych Psychiatric: Positive for anxiety and No depression Endo Endocrine: Positive for fatigue; No weight change Aller/Imm Allergy/Immunologic: No itchy eyes Tulio/Lymp Hematologic/Lymphatic: Positive for easy bruising; No easy bleeding Exam Const General: cooperative and comfortable Nutritional Appearance: average body habitus and well nourished [facility] Head: normal to inspection Ears: hearing grossly normal bilaterally Nose: external nose normal Face and sinus: normal facial exam Mouth: oral mucosae normal Throat: posterior oropharynx normal Eyes General: appearance normal, both eyes and all related structures Neck Neck: normal visual inspection Chest Chest palpation & inspection: normal inspection of the chest and normal palpation of entire chest wall Resp Effort & Inspection: normal respiratory effort Auscultation: Bilateral: Clear to Auscultation Cardio Palpation: normal PMI Rate: regular rate Rhythm: regular rhythm GI Inspection: normal to inspection Auscultation: normal bowel sounds Percussion: normal to percussion Palpation: no hepatosplenomegaly Skin General: no rashes or lesions noted Neuro General: patient alert Extrem General: normal to inspection Psych Affect: normal affect Assessment and Plan Assessment and Plan (1) Anemia: Status: Acute Plan: 68-year-old female with history of end-stage renal disease on hemodialysis who I saw in the hospital. I was consulted to see here because she was noted to have a hemoglobin of 4.6. She underwent an upper endoscopy and was discovered to have large bleeding duodenal ulcer. It was treated endoscopically. She still received 4 units of packed red blood cells and her hemoglobin was 8.6. She had a repeat upper endoscopy approximately 8 days later in it it showed recurrent bleeding at the duodenal ulcer site. Patient is discharged on pantoprazole 40 mg twice daily for 3 months and sucralfate 1 g 3 times daily for 2 months. She comes back in today for follow-up visit. She still is requiring iron transfusions, Epogen and she received 2 units packed red blood cells. She has not had a colonoscopy. I recommend we repeat upper endoscopy to evaluate the duodenal ulcer, performing screening colonoscopy and she gets a capsule endoscopy due to her high risk of angiodysplastic lesions in the setting of chronic kidney disease. Orders: Orders EGD 12/22/23 D64.9 - Anemia, unspecified Colonoscopy 12/22/23 D64.9 - Anemia, unspecified Medications: New sod sulf-pot chloride-mag sulf 1.479-0.188- 0.225 gram (Sutab) PO PER PKG DIR for colonoscopy prep 24 tabs 0RF I have examined the patient and the H&P has been reviewed. There are no clinical changes since date of exam.
--- NOTE | 2023-12-22 07:27 | PCM.POST.ANE ---
Anesthesia: Postop Eval I Current Vital Signs Temperature: 97.5 F Pulse Rate: 62 Blood Pressure: 76/48 Respiratory Rate: 16 Pulse Ox: 97 Oxygen Delivery Method: Room Air Assessment Airway patent: Yes Spontaneous unlabored respirations: Yes Mental status: Asleep nausea: No Vomiting: No Anesthesia Complication: No Fluid Hydration Crystalloid volume administer (ml): 300 Total IV fluid infused: 300 Progress Note Anesthesia document: Postop Eval 1 completed: Yes
--- NOTE | 2023-12-22 07:30 | OP.CCLET_ITS ---
12/22/2023 Julio Draper [address] [place] [address] Re : Upper GI endoscopy procedure for Cristiana Perdomo Dear Dr. Draper This procedure was performed on December. My impressions and recommendations are as follows: Impressions : - Normal esophagus. - Small hiatal hernia. - Duodenal mass. Biopsied. - Successful completion of the Video Capsule Enteroscope placement. Recommendations : - Discharge patient to home. - Resume previous diet. - Continue present medications. - Await pathology results. - Repeat upper endoscopy for surveillance. My findings are described in the full procedure note, which is enclosed. If I can be of further assistance, please feel free to contact me at . Sincerely, Ramon Antunez, 12/22/2023 7:29:05 AM This report has been signed electronically.
--- NOTE | 2023-12-22 07:30 | OP.EGD_ITS ---
Patient Name: Cristiana Perdomo Procedure Date: 12/22/2023 6:21 AM Date of : 1955 Age: 68 Procedure: Upper GI endoscopy Indications: Iron deficiency anemia Providers: Ramon Antunez DO Medicines: Monitored Anesthesia Care Patient Profile: This is a 68 year old female. Refer to note in patient chart for documentation of history and physical. Patient has symptoms. Complications: No immediate complications. Procedure: Pre-Anesthesia Assessment: - Prior to the procedure, a History and Physical was performed, and patient medications and allergies were reviewed. The patient is competent. The risks and benefits of the procedure and the sedation options and risks were discussed with the patient. All questions were answered and informed consent was obtained. Patient identification and proposed procedure were verified by the physician in the pre-procedure area. Mental Status Examination: alert and oriented. Airway Examination: normal oropharyngeal airway and neck mobility. Respiratory Examination: clear to auscultation. CV Examination: normal. Prophylactic Antibiotics: The patient does not require prophylactic antibiotics. Prior Anticoagulants: The patient has taken no anticoagulant or antiplatelet agents. ASA Grade Assessment: III - A patient with severe systemic disease. After reviewing the risks and benefits, the patient was deemed in satisfactory condition to undergo the procedure. The anesthesia plan was to use monitored anesthesia care (MAC). Immediately prior to administration of medications, the patient was re-assessed for adequacy to receive sedatives. The heart rate, respiratory rate, oxygen saturations, blood pressure, adequacy of pulmonary ventilation, and response to care were monitored throughout the procedure. The physical status of the patient was re-assessed after the procedure. After obtaining informed consent, the endoscope was passed under direct vision. Throughout the procedure, the patient's blood pressure, pulse, and oxygen saturations were monitored continuously. The gastroscope was introduced through the mouth, and advanced to the second part of duodenum. The upper GI endoscopy was accomplished without difficulty. The patient tolerated the procedure well. Scope In: 6:58:00 AM Scope Out: 7:04:46 AM Total Procedure Duration Time 0 hours 6 minutes 46 seconds Findings: The examined esophagus was normal. A small hiatal hernia was present. No other significant abnormalities were identified in a careful examination of the stomach. A small submucosal mass with no bleeding was found in the duodenal bulb. Biopsies were taken with a cold forceps for histology. Verification of patient identification for the specimen was done. Estimated blood loss was minimal. Using the endoscope, the video capsule enteroscope was advanced into the first portion of the duodenum. The video capsule was positioned 60 cm from the incisors. Impression: - Normal esophagus. - Small hiatal hernia. - Duodenal mass. Biopsied. - Successful completion of the Video Capsule Enteroscope placement. Recommendation: - Discharge patient to home. - Resume previous diet. - Continue present medications. - Await pathology results. - Repeat upper endoscopy for surveillance. Procedure Code(s): --- Professional --- 09211, Esophagogastroduodenoscopy, flexible, transoral; with biopsy, single or multiple CPT copyright 2021 [employer]. All rights reserved. The codes documented in this report are preliminary and upon celluloid trimmer review may be revised to meet current compliance requirements. Ramon Antunez DO 12/22/2023 7:29:05 AM This report has been signed electronically. Number of Addenda: 0 Note Initiated On: 12/22/2023 6:21 AM
--- NOTE | 2023-12-22 07:32 | OP.CCLET_ITS ---
12/22/2023 Julio Draper [address] [place] [address] Re : Colonoscopy procedure for Cristiana Hendersonkler Dear Dr. Draper This procedure was performed on December. My impressions and recommendations are as follows: Impressions : - Diverticulosis in the recto-sigmoid colon, in the sigmoid colon and in the ascending colon. - A single bleeding colonic angiodysplastic lesion. Treated with a heater probe. - The examined portion of the ileum was normal. - No specimens collected. Recommendations : - Discharge patient to home. - Resume previous diet. - Continue present medications. - Repeat colonoscopy in 5 years for surveillance. My findings are described in the full procedure note, which is enclosed. If I can be of further assistance, please feel free to contact me at . Sincerely, Ramon Antunez, 12/22/2023 7:31:51 AM This report has been signed electronically.
--- NOTE | 2023-12-22 07:32 | OP.COLON_ITS ---
Patient Name: Cristiana Perdomo Procedure Date: 12/22/2023 7:06 AM Date of : 1955 Age: 68 Procedure: Colonoscopy Indications: Iron deficiency anemia Providers: Ramon Antunez DO Medicines: Monitored Anesthesia Care Patient Profile: This is a 68 year old female. Refer to note in patient chart for documentation of history and physical. Patient has symptoms. Last Colonoscopy: date unknown. Unable to locate last colonoscopy report. Complications: No immediate complications. Procedure: Pre-Anesthesia Assessment: - Prior to the procedure, a History and Physical was performed, and patient medications and allergies were reviewed. The patient is competent. The risks and benefits of the procedure and the sedation options and risks were discussed with the patient. All questions were answered and informed consent was obtained. Patient identification and proposed procedure were verified by the physician in the pre-procedure area. Mental Status Examination: alert and oriented. Airway Examination: normal oropharyngeal airway and neck mobility. Respiratory Examination: clear to auscultation. CV Examination: normal. Prophylactic Antibiotics: The patient does not require prophylactic antibiotics. Prior Anticoagulants: The patient has taken no anticoagulant or antiplatelet agents. ASA Grade Assessment: III - A patient with severe systemic disease. After reviewing the risks and benefits, the patient was deemed in satisfactory condition to undergo the procedure. The anesthesia plan was to use monitored anesthesia care (MAC). Immediately prior to administration of medications, the patient was re-assessed for adequacy to receive sedatives. The heart rate, respiratory rate, oxygen saturations, blood pressure, adequacy of pulmonary ventilation, and response to care were monitored throughout the procedure. The physical status of the patient was re-assessed after the procedure. After I obtained informed consent, the scope was passed under direct vision. Throughout the procedure, the patient's blood pressure, pulse, and oxygen saturations were monitored continuously. The colonoscope was introduced through the anus and advanced to the terminal ileum. The colonoscopy was performed without difficulty. The patient tolerated the procedure well. The quality of the bowel preparation was adequate. The terminal ileum was photographed. Scope In: 7:08:00 AM Scope Withdrawal Time 0 hours 9 minutes 3 seconds Scope Out: 7:22:27 AM Total Procedure Duration Time 0 hours 14 minutes 27 seconds Findings: The perianal and digital rectal examinations were normal. A few small-mouthed diverticula were found in the recto-sigmoid colon, sigmoid colon and ascending colon. A single medium-sized localized angiodysplastic lesion with bleeding was found at the splenic flexure. Coagulation for hemostasis using heater probe was successful. Estimated blood loss was minimal. The terminal ileum appeared normal. Impression: - Diverticulosis in the recto-sigmoid colon, in the sigmoid colon and in the ascending colon. - A single bleeding colonic angiodysplastic lesion. Treated with a heater probe. - The examined portion of the ileum was normal. - No specimens collected. Recommendation: - Discharge patient to home. - Resume previous diet. - Continue present medications. - Repeat colonoscopy in 5 years for surveillance. Procedure Code(s): --- Professional --- 77962, Colonoscopy, flexible; with control of bleeding, any method CPT copyright 2021 [employer]. All rights reserved. The codes documented in this report are preliminary and upon fire battalion chief review may be revised to meet current compliance requirements. Ramon Antunez DO 12/22/2023 7:31:51 AM This report has been signed electronically. Number of Addenda: 0 Note Initiated On: 12/22/2023 7:06 AM
--- NOTE | 2023-12-22 08:48 | PCM.POSTANE2 ---
Anesthesia Postop Eval I Sum Postop Eval Completion status Anesthesia document: Postop Eval 1 completed: Yes Anesthesia Postop Eval I Summary Anesthesia Postop Eval I Summary: Anesthesia Postop Eval I: Assessment Summary Airway patent Yes 12/22/23 07:34 [email or web address] Spontaneous unlabored Yes 12/22/23 07:34 [email or web address] respirations Mental status Asleep 12/22/23 07:34 [email or web address] nausea No 12/22/23 07:34 [email or web address] Vomiting No 12/22/23 07:34 [email or web address] Anesthesia Postop Eval I: Fluid Summary Crystalloid volume administer 300 12/22/23 07:34 [email or web address] (ml) Colloids volume administered ( ml) Blood Product volume administered (ml) Total IV fluid infused 300 12/22/23 07:34 [email or web address] Anesthesia Postop Eval I: Summary Notes Anesthesia Complication No 12/22/23 07:34 [email or web address] Anesthesia Complication Comment: Post-operative progress note Anesthesia: Postop Eval II Evaluation Mental status: Awake Pain Level: 0 nausea: No Vomiting: No Complications Anesthesia Complication: No
== END 2023-12-22 08:54 | disposition home or self-care (01) ==
LOC: EN 05:28 → AC 05:29
PROVIDERS: PCP Internal Medicine; Referring Provider Internal Medicine; Visit Provider Internal Medicine Gastroenterology
PROC: 0DJD8ZZ Inspection of Lower Intestinal Tract, Via Natural or Artificial Opening Endoscopic (ICD-10-PCS; CPT 45378; principal; 2023-12-22 06:25)
DX: D64.9 Anemia, unspecified (principal); N18.6 End stage renal disease; K44.9 Diaphragmatic hernia without obstruction or gangrene; K57.30 Diverticulosis of large intestine without perforation or abscess without bleeding; Z99.2 Dependence on renal dialysis; R19.09 Other intra-abdominal and pelvic swelling, mass and lump; K55.21 Angiodysplasia of colon with hemorrhage
CPT/HCPCS: 45382; 43239; 88307; J7040; J7120; J2405

== ENCOUNTER → 2024-01-24 | Outpatient (CLI) | payer OTHER, SELFPAY ==
--- NOTE | 2024-01-24 08:57 | VDUE_ITS ---
Reason For Study: ESRD Right Lower Arm Left Arm Proximal Radial artery diameter 1.9 x 1.7 Left Brachial artery diameter 3.2 x 3.4 mm. mm. Left Brachial artery waveform is triphasic . Proximal Radial artery waveform is Lateral Brachial vein diameter 2.5 x 2.4 mm. triphasic . Medial Brachial vein diameter 1.9 x 1.8 mm. Proximal Lateral Radial vein diameter 1.1 x Hand Nailer Vein is present. 1.0 mm. Hand Nailer Vein measures 2.0 mm. Proximal Medial Radial vein diameter 1.2 x Cephalic Vein at proximal upper arm measures 1.2 mm. 1.2 x 1.2 mm. Distal Radial artery diameter 1.7 x 1.7 mm. Cephalic vein at proximal upper arm depth Distal Lateral Radial vein diameter 0.7 x measures 7.8 mm. 0.7 mm. Cephalic Vein at mid upper arm measures 1.7 Distal Medial Radial vein diameter 0.7 x 0.8 x 1.7 mm. mm. Cephalic vein at mid upper arm depth Proximal Ulnar artery diameter 2.4 x 2.9 mm. measures 2.3 mm. Proximal Ulnar artery waveform is Cephalic Vein distal upper arm measures 2.1 triphasic . x 2.2 mm. Proximal Lateral Ulnar vein diameter 2.1 x Cephalic vein at distal upper arm depth 2.7 mm. measures 4.5 mm. Proximal Medial Ulnar vein diameter 2.7 x Cephalic Vein proximal forearm measures 2.5 2.6 mm. x 2.6 mm. Distal Ulnar artery diameter 2.0 x 2.1 mm. Cephalic Vein at mid forearm measures 3.1 x Distal Lateral Ulnar vein diameter 0.8 x 0.7 3.4 mm. mm. Cephalic Vein at distal forearm measures 2.2 Distal Medial Ulnar vein diameter 0.6 x 0.6 x 2.2 mm. mm. Proximal Basilic vein measures 6.6 x 6.8 mm. Right Arm Proximal Basilic vein depth measures 7.2 mm. Right Brachial artery diameter 3.4 x 3.0 mm. Mid Basilic vein measures 5.9 x 6.3 mm. Right Brachial artery waveform is Mid Basilic vein depth measures 6.1 mm. triphasic . Distal Basilic vein measures 5.3 x 5.8 mm. Lateral Brachial vein diameter 2.7 x 2.6 mm. Distal Basilic vein depth measures 6.1 mm. Medial Brachial vein diameter 1.9 x 1.9 mm. Left Lower Arm Hand Nailer Vein is present. Proximal Radial artery diameter 1.7 x 1.6 Hand Nailer Vein measures 1.7 mm. mm. Cephalic Vein at proximal upper arm measures Proximal Radial artery waveform is 0.7 x 0.7 mm. triphasic . Cephalic vein at proximal upper arm depth Proximal Lateral Radial vein diameter 1.2 x measures 6.6 mm. 1.3 mm. Cephalic Vein at mid upper arm measures 1.0 Proximal Medial Radial vein diameter 1.3 x x 1.1 mm. 1.4 mm. Cephalic vein at mid upper arm depth Distal Radial artery diameter 1.8 x 1.8 mm. measures 7.1 mm. Distal Lateral Radial vein diameter 0.7 x Cephalic Vein distal upper arm measures 1.5 0.7 mm. x 1.6 mm. Distal Medial Radial vein diameter 1.1 x 1.3 Cephalic vein at distal upper arm depth mm. measures 5.5 mm. Proximal Ulnar artery diameter 3.3 x 3.8 mm. Cephalic Vein proximal forearm measures 3.0 Proximal Ulnar artery waveform is x 3.3 mm. triphasic . Cephalic Vein at mid forearm measures 3.5 x Proximal Lateral Ulnar vein diameter 2.8 x 3.4 mm. 2.8 mm. Cephalic Vein at distal forearm measures 2.1 Proximal Medial Ulnar vein diameter 3.4 x x 2.3 mm. 4.0 mm. Proximal Basilic vein measures 4.7 x 4.8 mm. Distal Ulnar artery diameter 2.1 x 2.0 mm. Proximal Basilic vein depth measures 8.3 mm. Distal Lateral Ulnar vein diameter 0.5 x 0.5 Mid Basilic vein measures 5.5 x 5.7 mm. mm. Mid Basilic vein depth measures 5.6 mm. Distal Medial Ulnar vein diameter 0.5 x 0.7 Distal Basilic vein measures 4.1 x 4.2 mm. mm. Distal Basilic vein depth measures 6.4 mm. VL/Dialysis Vein Map PRE-OP BILAT Interpretation Summary Bilateral upper extremity veins patent with measurements above. Bilateral upper extremity arteries patent with normal waveforms, measurements a fermin. Ordering Physician: Adelia Lawson Referring Physician: Julio Draper M.D. Performed By: Evelin Saeed RVT ???
== END | disposition home or self-care (01) ==
LOC: CVS 08:50
PROVIDERS: PCP Internal Medicine; Visit Provider Internal Medicine Nephrology
DX: Z01.818 Encounter for other preprocedural examination (principal); N18.6 End stage renal disease
CPT/HCPCS: 93985

== ENCOUNTER 2024-03-13 10:22 | Day surgery (SDC) | payer MEDICARE, OTHER, SELFPAY ==
[2024-02-27 16:35] LABS: Hematocrit 33.1 % (37-47); Hemoglobin 10.4 g/dL (12.0-15.0); Mean Corp Hgb Conc 31.4 g/dL (32-36); Mean Corpuscular Volume 95.4 fL (81-99); Mean Platelet Vol. 10.4 fl (6.2-12.0); Platelet Count 237 K/mm3 (150-450); RBC Distribution Width CV 12.6 % (11.6-14.6); Red Blood Count 3.47 M/mm3 (4.2-5.4); White Blood Count 9.2 K/mm3 (4.4-11.0)
[2024-02-27 16:52] LABS: Anion Gap 8 (5-15); BUN 24 mg/dL (7-18); BUN/Creat Ratio 7.7 RATIO (10-20); Chloride 101 mmol/L (98-107); Creatinine, Serum 3.12 mg/dL (0.55-1.02); EST Glomerular Filtration Rate 16 mL/min (>60); Est Glom Filt Rate - Afr Amer 19 mL/min (>60); Glucose 103 mg/dL (74-106); Potassium 3.9 mmol/L (3.5-5.1); Sodium Level 139 mmol/L (136-145)
[2024-03-13] VITALS (8 sets, daily range): BP systolic 115–141; BP diastolic 53–70; PULSE 61–72; RESP 16–18; TEMP 36.6–37.1; O2SAT 95–100; BMI 24.2
[2024-03-13] MEDS: 0.9% Normal Saline (500mL Bag) 500 ML 15 ML IV (10:44)
--- NOTE | 2024-03-13 11:07 | PCM.PRE.AN2 ---
ASA Classification* ASA Classification ASA Classification: 3 Assessment & Plan Anesthesia* Anesthesia Assessment Anesthesia Assessment: Discussed sedation and/or anesthesia options, risks, benefits, and alternatives with patient/parents/legal guardian/POA. Questions invited. The patient/parents/legal guardian/POA seems to understand and agrees to proceed with anesthesia plan. Reviewed the physical assessment, medical history, allergy history and patient home medications list prior to surgery/procedure/anesthetic and documented any changes. Performed airway and anesthesia risk assessments. Anesthesia Type Anesthesia Type: MAC History Source History Obtained from:: Patient and Chart Anesthesia Focused Assessment* Temperature: 98.5 F Pulse Rate: 61 Blood Pressure: 141/70 Respiratory Rate: 18 Pulse Ox: 99 Oxygen Delivery Method: Nasal Cannula (3 l/m oxygen) Airway Assessment Mouth opens: >3 cm Mallampati Score: IV Teeth Condition: Loose (Patient has loose teeth #24 and 25) and Missing (Multiple missing) Neck Range of motion (ROM): Limited ROM Focused Labs Anesthesia Preop lab: CBC WBC 9.2 K/mm3 (4.4-11.0) 02/27/24 15:52 RBC 3.47 M/mm3 (4.2-5.4) L 02/27/24 15:52 Hgb 10.4 g/dL (12.0-15.0) L 02/27/24 15:52 Hct 33.1 % (37-47) L 02/27/24 15:52 Plt Count 237 K/mm3 (150-450) 02/27/24 15:52 CHEMISTRY Potassium 3.9 mmol/L (3.5-5.1) 02/27/24 15:52 Sodium 139 mmol/L (136-145) 02/27/24 15:52 Magnesium 2.0 mg/dL (1.6-2.6) 07/07/23 09:15 Phosphorus 2.6 mg/dL (2.5-4.9) 12/01/22 06:03 BUN 24 mg/dL (7-18) H 02/27/24 15:52 Creatinine 3.12 mg/dL (0.55-1.02) H 02/27/24 15:52 Glucose 103 mg/dL (74-106) 02/27/24 15:52 TSH 1.37 uIU/mL (0.358-3.74) 07/08/23 06:25 COAG PT 14.5 SECONDS (11.7-14.9) 07/05/23 15:45 Urine Test Negative Negative 06/20/23 17:00 Pre-Assessment Diagnosis/Proposed Procedure Planned Operative Procedure(s): Left arm arteriovenous fistula creation. Anesthesia History Anesthesia History - loader demolder: Anesthesia History - loader demolder Hx Hospitalization Yes 12/19/23 14:51 Any Problems With Anesthesia No 12/19/23 14:51 Cholinesterase deficiency No 12/19/23 14:51 You/Your Family Experience No: ADOPTED-NO HISTORY 12/19/23 14:51 fever (hyperthermia) with Relationship Recent Exposure to Contagious No 03/13/24 10:45 Disease Does patient have nerve No 12/19/23 14:51 stimulator Patient instructed to have device shut off --Does patient have Pacemaker No 03/13/24 10:45 or ICD? When Was Last Pacemaker Check QUESTION #4 FULL TEXT: You/Your Family Experience fever (hyperthermia) with Anesthesia Last Oral Intake Last Oral intake: Last Oral Intake NPO since 00:00 03/13/24 10:45 Meds taken in AM with sips of No 03/13/24 10:45 water? Meds patient instructed to take am of surgery PONV PONV - loader demolder: PONV - loader demolder Female HX of Motion Sickness HX of N/V After Surgery Non-Smoker Duration of Surgery greater than 60 minutes Number of Risk Factors PONV Score Height & Weight Height & Weight: Anesthesia: Height & Weight Height 5 ft 4 in 03/13/24 10:45 Weight: 63.957 kg 03/13/24 10:45 Body Mass Index (BMI) 24.2 03/13/24 10:45 Respiratory Assessment Respiratory Assessment - loader demolder: Respiratory Tract Infection Hx - loader demolder Hx Respiratory Tract Infection No 12/19/23 14:51 STOP Sleep Apnea STOP Sleep Apnea - loader demolder: STOP Sleep Apnea - loader demolder Hx Hypertension Yes: CONTROLLED ON MED 12/19/23 14:51 Hx Sleep Apnea No 12/22/23 07:50 CPAP BIPAP Do you snore loudly (louder than talking or can be heard Do you often feel tired/ fatigued/ sleepy during daytime? Has anyone observed you stop breathing during sleep? STOP Results QUESTION #5 FULL TEXT : Do you snore loudly (louder than talking or can be heard through closed doors)? Tobacco Use History Tobacco Use History - loader demolder: Tobacco Use History - loader demolder Tobacco Use Cigarettes 04/27/21 08:57 Smoking Status Former smoker 12/19/23 14:51 Hx Tobacco Use No 12/19/23 14:51 Years Smoking Packs Smoked per Day Smoking Cessation Date was within the last 15 years Hx Smoking Cessation Date 04/23/14 12/19/23 14:51 Hx Smoking Cessation Counseling Hematologic Medial History Hematologic Hx - loader demolder: Hematologic Medical Hx - field support representative Hx of Blood Transfusion Hx of Transfusion in last 3 Months Date of Last Transfusion (if within last 3 months) Ever experience any problems with transfusion(s)? Specify any problems Hx of Preganancy in last 3 Months Nurse Filling Out Transfusion & Questions: Date: Time: Patient unable to answer at this time (ie. confused, unrespo /Reproduction History /Reproductive History - loader demolder: /Reproductive Hx- loader demolder Hx Now Gestational Age (in weeks): EDC: Hx Hx Para Hx Section SAB Active Medications Active Medications: Current Medications Generic Name Dose Route Start Last Admin Trade Name Freq PRN Reason Stop Dose Admin Clindamycin Phosphate 900 mg in 50 mls @ 75 mls/hr 03/13/24 11:50 Cleocin IV 03/13/24 12:29 PREOP ONE Sodium Chloride 500 mls @ 0 mls/hr 03/13/24 10:30 03/13/24 10:44 IV 15 mls/hr .Q0M FAUSTO Administration KVO PFSH Medical History Post-menopausal History of steroid therapy History of renal dialysis Blackout Gastric reflux Emphysema, unspecified Shortness of breath on exertion Normal Holter exam History of echocardiogram Hypertension Cardiology follow-up encounter History of heart attack History of atrial fibrillation Hemodialysis catheter malfunction Former cigarette smoker GERD (gastroesophageal reflux disease) Hyperlipidemia History of GI bleed Pleural effusion ESRD (end stage renal disease) on dialysis Essential hypertension NSTEMI (non-ST elevated myocardial infarction) EARNEST (acute kidney injury) Hx of ulcer disease Former smoker Atrial fibrillation Elevated blood pressure reading without diagnosis of hypertension Chronic hypoxemic respiratory failure Acute bronchospasm Acute exacerbation of chronic obstructive pulmonary disease Empyema of pleural space Syncope Bleeding ulcer Anemia requiring transfusions Lung nodules Pleurisy On home oxygen therapy Migraines Hyperglycemia Elevated serum creatinine Sinus tachycardia Fever and chills Dyspnea on exertion Acute bronchospasm COPD exacerbation Leukocytosis Community acquired pneumonia Anxiety Benign essential tremor Former tobacco use Pneumonia due to COVID-19 virus Asthma COPD (chronic obstructive pulmonary disease) Tobacco use Tremor Benign essential hypertension Home Medications ?Medication ?Instructions ?Recorded ?Last Taken ?Type albuterol sulfate 90 mcg/actuation 2 puff inhalation Q4H PRN PRN 08/28/15 12/22/23 04:30 History aerosol inhaler (Ventolin HFA) Shortness Of Breath montelukast 10 mg tablet 10 mg PO QHS ALLERGIES 02/25/18 03/12/24 History fluticasone propionate 50 2 spray intranasal QHS ALLERGIES 05/01/21 03/12/24 History mcg/actuation nasal spray,suspension metoprolol tartrate 25 mg tablet 25 mg PO BID HTN 30 days #60 tabs 06/16/23 03/12/24 20:00 Rx pantoprazole 40 mg tablet,delayed 40 mg PO BID GERD 30 days #60 tabs 06/23/23 03/12/24 Rx release (Protonix) sucralfate 1 gram tablet 1 g PO 0700,1100,1600 GI 30 days 06/23/23 03/12/24 Rx #90 tabs amlodipine 5 mg tablet 5 mg PO DAILY 09/23/23 03/12/24 History atorvastatin 40 mg tablet 40 mg PO QHS 09/23/23 03/12/24 History ipratropium 0.5 mg-albuterol 3 mg 3 ml inhalation Q6H PRN shortness 09/23/23 03/12/24 History (2.5 mg base)/3 mL nebulization of breath or wheezing soln isosorbide mononitrate 60 mg 60 mg PO DAILY 09/23/23 03/12/24 History tablet,extended release 24 hr nitroglycerin 0.4 mg sublingual 0.4 mg sublingual Q5-15M PRN chest 09/23/23 Unknown History tablet pain polyethylene glycol 3350 17 17 g PO DAILY PRN constipation 09/23/23 Unknown History gram/dose oral powder buspirone 10 mg tablet 10 mg PO BID 09/27/23 03/12/24 History budesonide 160 mcg-glycopyr 9 2 inh inhalation BID 02/22/24 03/13/24 History mcg-formot 4.8 mcg/actuation HFA inhaler (Breztri Aerosphere) Allergy/AdvReac Type Severity Reaction Status Date / Time cephalexin monohydrate (From Allergy Chest Verified 03/13/24 10:40 Keflex) tightness Family History Other Adopted Surgical History Hx of colonoscopy History of cardiac catheterization Hx of total shoulder replacement Hx of chest tube placement Hx of esophagogastroduodenoscopy H/O bilateral salpingectomy History of herniorrhaphy Hx of tonsillectomy Hx of cholecystectomy Social History adopted: Yes household members: family housing: house Smoking Status: Former smoker how long ago did patient quit smokin years ago alcohol intake: never substance use type: does not use caffeine: Yes Type: coffee Number of servings: 1 Review of Systems (Anesthesia) ROS Narrative System reviewed and no additional complaints, except as documented.
--- NOTE | 2024-03-13 11:46 | PCM.HP.STD ---
HPI - General HPI Narrative SNEHA CARDENAS, is a 68 F who presents with ESRD currently in dialysis via right IJ catheter. She has had vein mapping that reveals adequate left basilic vein. [facility] Medical History Post-menopausal History of steroid therapy History of renal dialysis Blackout Gastric reflux Emphysema, unspecified Shortness of breath on exertion Normal Holter exam History of echocardiogram Hypertension Cardiology follow-up encounter History of heart attack History of atrial fibrillation Hemodialysis catheter malfunction Former cigarette smoker GERD (gastroesophageal reflux disease) Hyperlipidemia History of GI bleed Pleural effusion ESRD (end stage renal disease) on dialysis Essential hypertension NSTEMI (non-ST elevated myocardial infarction) EARNEST (acute kidney injury) Hx of ulcer disease Former smoker Atrial fibrillation Elevated blood pressure reading without diagnosis of hypertension Chronic hypoxemic respiratory failure Acute bronchospasm Acute exacerbation of chronic obstructive pulmonary disease Empyema of pleural space Syncope Bleeding ulcer Anemia requiring transfusions Lung nodules Pleurisy On home oxygen therapy Migraines Hyperglycemia Elevated serum creatinine Sinus tachycardia Fever and chills Dyspnea on exertion Acute bronchospasm COPD exacerbation Leukocytosis Community acquired pneumonia Anxiety Benign essential tremor Former tobacco use Pneumonia due to COVID-19 virus Asthma COPD (chronic obstructive pulmonary disease) Tobacco use Tremor Benign essential hypertension Home Medications ?Medication ?Instructions ?Recorded ?Last Taken ?Type albuterol sulfate 90 mcg/actuation 2 puff inhalation Q4H PRN PRN 08/28/15 12/22/23 04:30 History aerosol inhaler (Ventolin HFA) Shortness Of Breath montelukast 10 mg tablet 10 mg PO QHS ALLERGIES 02/25/18 03/12/24 History fluticasone propionate 50 2 spray intranasal QHS ALLERGIES 05/01/21 03/12/24 History mcg/actuation nasal spray,suspension metoprolol tartrate 25 mg tablet 25 mg PO BID HTN 30 days #60 tabs 06/16/23 03/12/24 20:00 Rx pantoprazole 40 mg tablet,delayed 40 mg PO BID GERD 30 days #60 tabs 06/23/23 03/12/24 Rx release (Protonix) sucralfate 1 gram tablet 1 g PO 0700,1100,1600 GI 30 days 06/23/23 03/12/24 Rx #90 tabs amlodipine 5 mg tablet 5 mg PO DAILY 09/23/23 03/12/24 History atorvastatin 40 mg tablet 40 mg PO QHS 09/23/23 03/12/24 History ipratropium 0.5 mg-albuterol 3 mg 3 ml inhalation Q6H PRN shortness 09/23/23 03/12/24 History (2.5 mg base)/3 mL nebulization of breath or wheezing soln isosorbide mononitrate 60 mg 60 mg PO DAILY 09/23/23 03/12/24 History tablet,extended release 24 hr nitroglycerin 0.4 mg sublingual 0.4 mg sublingual Q5-15M PRN chest 09/23/23 Unknown History tablet pain polyethylene glycol 3350 17 17 g PO DAILY PRN constipation 09/23/23 Unknown History gram/dose oral powder buspirone 10 mg tablet 10 mg PO BID 09/27/23 03/12/24 History budesonide 160 mcg-glycopyr 9 2 inh inhalation BID 02/22/24 03/13/24 History mcg-formot 4.8 mcg/actuation HFA inhaler (Breztri Aerosphere) Allergy/AdvReac Type Severity Reaction Status Date / Time cephalexin monohydrate (From Allergy Chest Verified 03/13/24 10:40 Keflex) tightness Family History Other Adopted Surgical History Hx of colonoscopy History of cardiac catheterization Hx of total shoulder replacement Hx of chest tube placement Hx of esophagogastroduodenoscopy H/O bilateral salpingectomy History of herniorrhaphy Hx of tonsillectomy Hx of cholecystectomy Social History adopted: Yes household members: family housing: house Smoking Status: Former smoker how long ago did patient quit smokin years ago alcohol intake: never substance use type: does not use caffeine: Yes Type: coffee Number of servings: 1 ROS Constitutional Constitutional: Denies chills, fever(s), frequent falls, lethargy or weakness Eyes Eyes: Denies blind spots, change in vision or loss of vision ENT HEENT: Denies bleeding gums, hoarseness or sore throat Cardiovascular Cardiovascular: Denies abdominal pain, bluish discoloration of hand/feet, chest pain with activity, claudication, cold extremities, cyanosis, dyspnea on exertion, erythema on extremities, irregular heart rhythm, leg edema, leg ulcers, numbness in extremities or weakness in extremities Respiratory/Chest Respiratory/Chest: Denies cough, excessive phlegm production, shortness of breath at rest, shortness of breath with exertion or wheezing Gastrointestinal Gastrointestinal: Denies anorexia, change in stool character, constipation, diarrhea, melena or rectal bleeding Genitourinary Genitourinary: Denies dysuria or hematuria Musculoskeletal Musculoskeletal: Denies abnormal gait Integumentary Integumentary: Reports other Details: ; Denies erythema, non-healing lesions or wounds Neurologic Neurologic: Denies abnormal speech, focal weakness, headache(s), loss of vision, numbness, paresthesias or sensory deficit Hematologic/Lymphatic Hematologic/Lymphatic: Denies easy bleeding, easy bruising or lymphadenopathy Vital Signs Vital Signs Vital Signs: 03/13/24 10:45 03/13/24 10:45 03/13/24 11:18 Temperature 98.5 F 98.5 F Temperature Source Temporal Pulse Rate 61 61 Respiratory Rate 18 18 Respiratory Pattern Normal Blood Pressure 141/70 H 141/70 H Blood Pressure Mean 93 Blood Pressure Source Monitor Blood Pressure Position Semi-Fowlers Blood Pressure Location Left Arm Pulse Ox 99 99 Oxygen Delivery Method Nasal Cannula Nasal Cannula Oxygen Flow Rate (L/min) 3 3 Weight Weight: 141 lb Body Mass Index (BMI) 24.2 Physical Exam Const alert, oriented x3, no apparent distress and healthy appearing General Appearance: cooperative; Negative for combative or lethargic Orientation / Consciousness: awake Exam Limitations: no limitations HEENT Head and Scalp: normocephalic and atraumatic Eyes EOMs intact bilaterally General Eye: normal appearance of both eyes Neck full ROM, no lymphadenopathy and thyroid normal General: trachea midline; Negative for lymphadenopathy or tenderness Thyroid: thyroid normal Resp normal respiratory effort and no use of accessory muscles Effort and Inspection: Negative for labored, stridor or audible wheezes Cardio regular rate and regular rhythm Back/Spine Cervical Spine: cervical ROM normal Extremity full ROM, normal capillary refill and no clubbing, cyanosis or edema Skin no rashes or lesions noted and no wounds Neuro oriented x3, CN's II-XII intact bilaterally, no focal motor deficits and no sensory deficits noted Psych thought process normal, cooperative, affect normal, speech normal and activity/motor behavior normal Results Lab / Micro Data 02/27/24 15:52 02/27/24 15:52 Assessment & Plan Assessment/Plan (1) End-stage renal disease (ESRD): PLAN: -left basilic vein fistula
[2024-03-13] MEDS: Clindamycin 900 MG/50 ML BAG 75 MG IV (12:00)
[2024-03-13] MEDS: Bupivacaine 0.25% 30 ML Vial (12:35)
[2024-03-13] MEDS: Heparin Injection (Vial) 5,000 UNIT/ML VIAL 5000 UNIT (12:35)
[2024-03-13] MEDS: Lidocaine 1% (20 ml mdv) 20 ML Vial (12:35)
--- NOTE | 2024-03-13 13:32 | EX.PCM.DISCH ---
Discharge Instructions Diet Discharge Diet: No restrictions Activity Lifting Restrictions: do not lift > 20 lbs with left arm for 14 days Additional Activity Instructions:: do not submerge incision for 14 days Dressing / Incision Call your doctor if your incision/area has: Sudden Increased Bleeding, Increased Pain/ Swelling, Increased Redness and Foul Smelling Discharge Call your doctor if you observe: Fever of 101 or Higher, Coldness, Increased Pain and Numbness or Tingling Remove Dressing in: 2 days Cleanse incision/area with: Soap & Water Follow Up Care Test Results: Test results from this visit will be discussed in further detail at your follow-up appointment, if applicable. Discharge Plan Admission Attending Provider: Livan Love Primary Care Provider: Julio Draper Instructions Print Language: Romanian Discharge Orders/Prescriptions Prescriptions: New oxycodone 5 mg tablet 5 mg PO Q8H PRN (Reason: pain) 3 Days Qty: 9 0RF Continued nitroglycerin 0.4 mg tablet, sublingual 0.4 mg sublingual Q5-15M PRN (Reason: chest pain) Rx Instructions: do not exceed 3 doses per episode polyethylene glycol 3350 17 gram/dose powder 17 g PO DAILY PRN (Reason: constipation) amlodipine 5 mg tablet 5 mg PO DAILY isosorbide mononitrate 60 mg tablet extended release 24 hr 60 mg PO DAILY ipratropium-albuterol 0.5 mg-3 mg(2.5 mg base)/3 mL solution for nebulization 3 ml inhalation Q6H PRN (Reason: shortness of breath or wheezing) atorvastatin 40 mg tablet 40 mg PO QHS buspirone 10 mg tablet 10 mg PO BID albuterol sulfate [Ventolin HFA] 1 INHALER inhaler 2 puff inhalation Q4H PRN PRN (Reason: Shortness Of Breath) Patient Comments: shortness of breath montelukast 10 MG tablet 10 mg PO QHS fluticasone propionate 50 mcg/actuation spray,suspension 2 spray INTRANASAL QHS Patient Comments: Use 1 [place] in each nostril once daily. metoprolol tartrate 25 mg Tablet 25 mg PO BID 30 Days Qty: 60 0RF sucralfate 1 gram Tablet 1 g PO 0700,1100,1600 30 Days Qty: 90 1RF pantoprazole [Protonix] 40 mg tablet,delayed release (DR/EC) 40 mg PO BID 30 Days Qty: 60 3RF Rx Instructions: 40 mg twice daily for 3 months and then once daily. Breztri Aerosphere 160-9-4.8 mcg/actuation HFA aerosol inhaler 2 inh inhalation BID Referrals / Follow Up: Julio Draper MD [Primary Care Provider] - Disposition Disposition (needs filled in before D/C Order can be placed): Home, Self Care
--- NOTE | 2024-03-13 13:38 | PCM.OPRPT ---
Report of Operation Date of Procedure: 03/13/24 Pre-Operative Diagnosis: ESRD Post-Operative Diagnosis: Same Surgery/Procedure Performed:: Left stage I basilic fistula creation Surgeon: Livan Love Type of Anesthesia: Local and MAC Estimated Blood Loss (mL): 9 Description of Procedure: HPI: Patient is a 68-year-old female with end-stage renal disease currently on dialysis. She had vein mapping which revealed satisfactory left upper arm basilic vein. She presents now for fistula creation. Description of procedure: Upon obtaining form consent and verification correct patient procedure site patient taken to the operating where she was positioned prepped and draped in usual sterile fashion. A timeout was then performed and sedation was administered by anesthesia. Ultrasound used to evaluate the basilic vein proximity to the brachial artery. There is a large medial cubital branch overlying the brachial artery in the distal forearm and at the antecubital crease however it was significantly thickened which suggested prior instrumentation or trauma and suggested that it may not trigger in a satisfactory fashion. The basilic vein proper and a secondary branch were of adequate diameter and appeared normal on ultrasound though they were not in close proximity to the vessel distal to the antecubital crease. Skin overlying the vessels superior to the antecubital crease was anesthetized with 1% lidocaine and transverse incision made. Prophylactically was then used dissect down through subcutaneous tissue to the secondary branch of the basilic vein. This was then dissected free with sharp dissection and attention turned to the arterial exposure. The fascia was then incised in a cruciate configuration and sharp dissection was dissected free the brachial artery with care taken to identify protect the adjacent nerve and vein structures. A right angle was used to place a vessel loop proximal and distal and the patient was in heparinized allowed circulate for 3 minutes. The basilic vein branch was then ligated distally in the surgical field with a silk tie and divided. It was then marked to maintain orientation and dilated to 3 mm and flushed with heparinized saline. The brachial artery was then occluded with Vesseloops and a longitudinal arteriotomy created with 11 blade extended with Cash scissors. Anastomosis was then performed with a 6-0 Prolene in a running fashion and plaque completing suture line vessels were backbled. After completing suture line clamps removed and satisfactory stasis was noted. There is significant amount of spasm in the vessel particularly around the proximal Vesseloops site with a prominent pulse proximal to this and no significant pulse palpable distal to this. Vessels were then interrogated with Doppler found to be turbulent in nature throughout the area of instrumentation from the proximal clamp to distal to the distal clamp position. Is felt that this represented significant spasm so papaverine was then injected into the cyst of the adventitial vessel and surrounding peritoneal tissue. The vessel was then reassessed and there is now palpable pulse distal to the anastomosis including the radial artery at the wrist and an improved Doppler signal in the fistula outflow. The wound was then inspected for hemostasis and closed with 3-0 Vicryl, 4 Monocryl and Dermabond for the skin. The patient awakened anesthesia taken recovery anticipated discharge to home.
--- NOTE | 2024-03-13 13:49 | PCM.POST.ANE ---
Anesthesia: Postop Eval I Current Vital Signs Temperature: 97.9 F Pulse Rate: 72 Blood Pressure: 115/60 Respiratory Rate: 16 Pulse Ox: 100 Oxygen Delivery Method: Nasal Cannula Oxygen Flow Rate (L/min): 2 Assessment Airway patent: Yes Spontaneous unlabored respirations: Yes Mental status: Awake and Calm nausea: No Vomiting: No Anesthesia Complication: No Fluid Hydration Crystalloid volume administer (ml): 250 Total IV fluid infused: 250 Progress Note Anesthesia document: Postop Eval 1 completed: Yes
--- NOTE | 2024-03-13 16:32 | POSTOPAN2_ITS ---
Anesthesia Postop Eval I Sum Postop Eval Completion status Anesthesia document: Postop Eval 1 completed: Yes Anesthesia Postop Eval I Summary Anesthesia Postop Eval I Summary: Anesthesia Postop Eval I: Assessment Summary Airway patent Yes 03/13/24 13:50 BEATER AND PULPER [email or web address] Spontaneous unlabored Yes 03/13/24 13:50 BEATER AND PULPER [email or web address] respirations Mental status Awake,Calm 03/13/24 13:50 BEATER AND PULPER [email or web address] nausea No 03/13/24 13:50 BEATER AND PULPER [email or web address] Vomiting No 03/13/24 13:50 BEATER AND PULPER [email or web address] Anesthesia Postop Eval I: Fluid Summary Crystalloid volume administer 250 03/13/24 13:50 BEATER AND PULPER [email or web address] (ml) Colloids volume administered ( ml) Blood Product volume administered (ml) Total IV fluid infused 250 03/13/24 13:50 BEATER AND PULPER [email or web address] Anesthesia Postop Eval I: Summary Notes Anesthesia Complication No 03/13/24 13:50 BEATER AND PULPER [email or web address] Anesthesia Complication Comment: Post-operative progress note Anesthesia: Postop Eval II Evaluation Mental status: Awake and Calm Pain Level: 1 nausea: No Vomiting: No Complications Anesthesia Complication: No
--- NOTE | 2024-03-13 16:32 | PCM.POSTANE2 ---
Anesthesia Postop Eval I Sum Postop Eval Completion status Anesthesia document: Postop Eval 1 completed: Yes Anesthesia Postop Eval I Summary Anesthesia Postop Eval I Summary: Anesthesia Postop Eval I: Assessment Summary Airway patent Yes 03/13/24 13:50 WIPING CLOTH [email or web address] Spontaneous unlabored Yes 03/13/24 13:50 WIPING CLOTH [email or web address] respirations Mental status Awake,Calm 03/13/24 13:50 WIPING CLOTH [email or web address] nausea No 03/13/24 13:50 WIPING CLOTH [email or web address] Vomiting No 03/13/24 13:50 WIPING CLOTH [email or web address] Anesthesia Postop Eval I: Fluid Summary Crystalloid volume administer 250 03/13/24 13:50 WIPING CLOTH [email or web address] (ml) Colloids volume administered ( ml) Blood Product volume administered (ml) Total IV fluid infused 250 03/13/24 13:50 WIPING CLOTH [email or web address] Anesthesia Postop Eval I: Summary Notes Anesthesia Complication No 03/13/24 13:50 WIPING CLOTH [email or web address] Anesthesia Complication Comment: Post-operative progress note Anesthesia: Postop Eval II Evaluation Mental status: Awake and Calm Pain Level: 1 nausea: No Vomiting: No Complications Anesthesia Complication: No
== END 2024-03-13 15:10 | disposition home or self-care (01) ==
LOC: SDC 10:24 → AC 10:25
PROVIDERS: PCP Internal Medicine; Referring Provider Surgery Trauma Surgery; Visit Provider Surgery Trauma Surgery
PROC: (CPT 36819; principal; 2024-03-13 11:50)
DX: I12.0 Hypertensive chronic kidney disease with stage 5 chronic kidney disease or end stage renal disease (principal); N18.6 End stage renal disease; J44.9 Chronic obstructive pulmonary disease, unspecified; I48.91 Unspecified atrial fibrillation; Z87.891 Personal history of nicotine dependence; Z86.16 Personal history of COVID-19; E78.5 Hyperlipidemia, unspecified; Z99.2 Dependence on renal dialysis; Z90.79 Acquired absence of other genital organ(s); Z87.19 Personal history of other diseases of the digestive system; Z90.49 Acquired absence of other specified parts of digestive tract; Z99.81 Dependence on supplemental oxygen; I25.10 Atherosclerotic heart disease of native coronary artery without angina pectoris
CPT/HCPCS: 36819; 01844; 36415; 80048; 85027; A4648; J7040; J2405

== ENCOUNTER 2024-03-19 09:36 | Emergency (ER) | payer MEDICARE, OTHER, SELFPAY ==
[2024-03-19] VITALS (7 sets, daily range): BP systolic 120–130; BP diastolic 46–57; PULSE 57–65; RESP 12–18; TEMP 36.9; O2SAT 96–100; BMI 25.7
--- NOTE | 2024-03-19 09:53 | RAD_ITS ---
STUDY: X-RAY CHEST REASON FOR EXAM: Female, 68 years old. chest pain TECHNIQUE: Single AP portable view of the chest. COMPARISON: 07/07/2023 FINDINGS: Interval placement of tunneled right internal jugular dialysis catheter with tip of the catheter overlying the superior vena cava with no pneumothorax. The lungs are clear and expanded. Tiny right pleural effusion. Normal size heart. Normal mediastinum and katelyn. Normal visualized pulmonary arteries. Normal visualized aortic arch and descending thoracic aorta. Normal visualized thoracic spine. Status post right shoulder arthroplasty. There is no demonstrated abnormality of the visualized soft tissue structures of the upper abdomen. RAD/Chest 1 View (Portable) IMPRESSION: Interval placement of tunneled right internal jugular dialysis catheter. Tiny right pleural effusion. Electronically Signed: Rasta Ramos MD at 11:01 EDT ,
--- NOTE | 2024-03-19 09:53 | ED.VIS.CHEST ---
HPI History of Present Illness Chief Complaint: Chest Pain Informant: patient and EMS Narrative Narrative: Patient presents with chest discomfort that was in her left breast and squeezing nonpleuritic that started during dialysis lasted 20 or 25 minutes and is now gone. She had no associated symptoms that started with this. She has had cramping and pains in the past, frequently during dialysis, as well as feeling faint which she did at 1 point, but this was new and different. She had a heart cath earlier this year at [facility] She states it was normal. This was due to some elevated troponins in context of other events. She states she feels fine now. [facility] Medical History Post-menopausal History of steroid therapy History of renal dialysis Blackout Gastric reflux Emphysema, unspecified Shortness of breath on exertion Normal Holter exam History of echocardiogram Hypertension Cardiology follow-up encounter History of heart attack History of atrial fibrillation Hemodialysis catheter malfunction Former cigarette smoker GERD (gastroesophageal reflux disease) Hyperlipidemia History of GI bleed Pleural effusion ESRD (end stage renal disease) on dialysis Essential hypertension NSTEMI (non-ST elevated myocardial infarction) EARNEST (acute kidney injury) Hx of ulcer disease Former smoker Atrial fibrillation Elevated blood pressure reading without diagnosis of hypertension Chronic hypoxemic respiratory failure Acute bronchospasm Acute exacerbation of chronic obstructive pulmonary disease Empyema of pleural space Syncope Bleeding ulcer Anemia requiring transfusions Lung nodules Pleurisy On home oxygen therapy Migraines Hyperglycemia Elevated serum creatinine Sinus tachycardia Fever and chills Dyspnea on exertion Acute bronchospasm COPD exacerbation Leukocytosis Community acquired pneumonia Anxiety Benign essential tremor Former tobacco use Pneumonia due to COVID-19 virus Asthma COPD (chronic obstructive pulmonary disease) Tobacco use Tremor Benign essential hypertension Home Medications ?Medication ?Instructions ?Recorded ?Last Taken ?Type albuterol sulfate 90 mcg/actuation 2 puff inhalation Q4H PRN PRN 08/28/15 12/22/23 04:30 History aerosol inhaler (Ventolin HFA) Shortness Of Breath montelukast 10 mg tablet 10 mg PO QHS ALLERGIES 02/25/18 03/12/24 History fluticasone propionate 50 2 spray intranasal QHS ALLERGIES 05/01/21 03/12/24 History mcg/actuation nasal spray,suspension metoprolol tartrate 25 mg tablet 25 mg PO BID HTN 30 days #60 tabs 06/16/23 03/12/24 20:00 Rx pantoprazole 40 mg tablet,delayed 40 mg PO BID GERD 30 days #60 tabs 06/23/23 03/12/24 Rx release (Protonix) sucralfate 1 gram tablet 1 g PO 0700,1100,1600 GI 30 days 06/23/23 03/12/24 Rx #90 tabs amlodipine 5 mg tablet 5 mg PO DAILY 09/23/23 03/12/24 History atorvastatin 40 mg tablet 40 mg PO QHS 09/23/23 03/12/24 History ipratropium 0.5 mg-albuterol 3 mg 3 ml inhalation Q6H PRN shortness 09/23/23 03/12/24 History (2.5 mg base)/3 mL nebulization of breath or wheezing soln isosorbide mononitrate 60 mg 60 mg PO DAILY 09/23/23 03/12/24 History tablet,extended release 24 hr nitroglycerin 0.4 mg sublingual 0.4 mg sublingual Q5-15M PRN chest 09/23/23 Unknown History tablet pain polyethylene glycol 3350 17 17 g PO DAILY PRN constipation 09/23/23 Unknown History gram/dose oral powder buspirone 10 mg tablet 10 mg PO BID 09/27/23 03/12/24 History budesonide 160 mcg-glycopyr 9 2 inh inhalation BID 02/22/24 03/13/24 History mcg-formot 4.8 mcg/actuation HFA inhaler (Breztri Aerosphere) Allergy/AdvReac Type Severity Reaction Status Date / Time cephalexin monohydrate (From Allergy Chest Verified 03/19/24 09:44 Keflex) tightness Family History Other Adopted Surgical History Hx of colonoscopy History of cardiac catheterization Hx of total shoulder replacement Hx of chest tube placement Hx of esophagogastroduodenoscopy H/O bilateral salpingectomy History of herniorrhaphy Hx of tonsillectomy Hx of cholecystectomy Social History adopted: Yes household members: family housing: house Smoking Status: Former smoker how long ago did patient quit smokin years ago alcohol intake: never substance use type: does not use caffeine: Yes Type: coffee Number of servings: 1 ROS ROS ED Constitutional Constitutional ED: Denies chills or fever(s) Eyes Eyes: Denies change in vision or diplopia ENT ENT ED: Denies rhinorrhea or sore throat Cardiovascular Cardiovascular: Reports as per HPI and chest pain; Denies palpitations Respiratory/Chest Respiratory/Chest: Denies cough or dyspnea Gastrointestinal Gastrointestinal: Denies abdominal pain, diarrhea, nausea or vomiting Musculoskeletal Musculoskeletal: Denies back pain or neck pain Integumentary Denies abscess or rash Neurologic Neurologic: Denies headache(s), paresthesias or weakness Psychiatric Psychiatric: Denies anxiety or suicidal thoughts EXAM Physical Exam Const Vital Signs: 03/19/24 09:38 03/19/24 09:46 03/19/24 09:53 Temperature 98.4 F Temperature Source Oral Pulse Rate 64 Respiratory Rate 16 Respiratory Effort Normal Non-Labored Blood Pressure 130/55 H Blood Pressure Mean 80 Pulse Ox 100 100 Oxygen Delivery Method Nasal Cannula Nasal Cannula Oxygen Flow Rate (L/min) 3 3 03/19/24 10:37 03/19/24 11:00 03/19/24 12:00 Temperature Temperature Source Pulse Rate 63 57 L 65 Respiratory Rate 18 15 Respiratory Effort Blood Pressure 125/57 H Blood Pressure Mean 79 Pulse Ox 100 100 Oxygen Delivery Method Room Air Nasal Cannula Oxygen Flow Rate (L/min) 3 03/19/24 13:00 Temperature Temperature Source Pulse Rate 62 Respiratory Rate 16 Respiratory Effort Blood Pressure 124/50 H Blood Pressure Mean 74 Pulse Ox Oxygen Delivery Method Oxygen Flow Rate (L/min) Positive well nourished and well developed General Appearance ED: well developed and NAD HEENT Reports moist mucous membranes normocephalic and atraumatic Eyes PERRL and EOMs intact bilaterally Neck full ROM and supple Resp normal respiratory effort and clear to auscultation bilaterally Cardio regular rate, regular rhythm and no murmurs GI non-tender and non-distended Auscultation: normoactive bowel sounds Palpation: soft Back/Spine no CVA tenderness General Back: other FROM Extremity normal to inspection General Extremety ED: Negative for edema, pulses abnormal or tenderness General Extremity: Negative for edema or pulses abnormal Neuro oriented x3, CN's II-XII intact bilaterally and no sensory deficits noted Sensorium / Orientation: awake and alert Motor Exam: strength 5/5 throughout Psych mental status grossly normal Skin no rashes or lesions noted and no wounds Heart Score History: Slightly/Non-Suspicious ECG: Normal Age: >/= 65 years Risk Factors: 1 or 2 Risk Factors Troponin: </= Normal Limit Score: 3 MDM MDM MDM Narrative Medical decision making narrative: I reviewed [facility], trying to look for the results of her heart catheterization sometime this year at [facility]. I was not able to find it.. 1 view chest x-ray is negative for acute pneumonia or pneumothorax, interpretation. There is a small right-sided pleural effusion. Her cardiac workup is negative including 2 troponin measurements and she developed no recurrent chest discomfort. Both of her measurements are in a single digits, ruling out acute coronary syndrome here. Her vital signs are normal and stable, she clinically is doing well and comfortable with going home. History & Record Review Additional record(s) reviewed:: Other Lab Data Attestation: I reviewed the patient's lab results. Labs: Laboratory Results - last 24 hr 03/19/24 03/19/24 09:45 12:05 WBC 9.6 RBC 3.76 L Hgb 11.2 L Hct 36.3 L MCV 96.5 MCH 29.8 MCHC 30.9 L RDW Std Deviation 45.8 H RDW Coeff of [place] 12.9 Plt Count 217 MPV 10.6 Immature Gran % (Auto) 0.300 Neut % (Auto) 64.9 Lymph % (Auto) 20.1 [place] % (Auto) 8.7 Eos % (Auto) 5.2 H Baso % (Auto) 0.8 Absolute Neuts (auto) 6.2 Absolute Lymphs (auto) 1.92 Nucleated RBC % 0 Sodium 137 Potassium 4.3 Chloride 99 Carbon Dioxide 33.0 H Anion Gap 5 BUN 19 H Creatinine 2.57 H Estim Creat Clear Calc 19.37 Est GFR (MDRD) Af Amer 24 L Est GFR (MDRD) Non-Af 20 L BUN/Creatinine Ratio 7.4 L Glucose 104 Calcium 9.3 Troponin I High Sens 6 8 Radiography Diagnostic Testing: Clinical Impression(s) from Imaging Studies Chest X-Ray 03/19/24 09:53 IMPRESSION: Interval placement of tunneled right internal jugular dialysis catheter. Tiny right pleural effusion. Electronically Signed: Rasta Ramos MD at 11:01 EDT , Rhythm Strip Rhythm Strip: Sinus Rhythm Rate: 62 Ectopy: None EKG Initial EKG: Attestation: I personally reviewed and interpreted this EKG as follows: Interpretation: Sinus Rhythm and No Acute Injury Pattern Comments: Normal EKG Discharge Plan Triage Chief Complaint: Chest Pain ED Provider: Mikael Chavira Dx/Rx/DC Orders Clinical Impression: Left-sided chest pain, End-stage renal disease (ESRD) Instructions: ED Chest Pain, Noncardiac Prescriptions: No Action nitroglycerin 0.4 mg tablet, sublingual 0.4 mg sublingual Q5-15M PRN (Reason: chest pain) Rx Instructions: do not exceed 3 doses per episode polyethylene glycol 3350 17 gram/dose powder 17 g PO DAILY PRN (Reason: constipation) amlodipine 5 mg tablet 5 mg PO DAILY isosorbide mononitrate 60 mg tablet extended release 24 hr 60 mg PO DAILY ipratropium-albuterol 0.5 mg-3 mg(2.5 mg base)/3 mL solution for nebulization 3 ml inhalation Q6H PRN (Reason: shortness of breath or wheezing) atorvastatin 40 mg tablet 40 mg PO QHS buspirone 10 mg tablet 10 mg PO BID albuterol sulfate [Ventolin HFA] 1 INHALER inhaler 2 puff inhalation Q4H PRN PRN (Reason: Shortness Of Breath) Patient Comments: shortness of breath montelukast 10 MG tablet 10 mg PO QHS fluticasone propionate 50 mcg/actuation spray,suspension 2 spray INTRANASAL QHS Patient Comments: Use 1 [place] in each nostril once daily. metoprolol tartrate 25 mg Tablet 25 mg PO BID 30 Days Qty: 60 0RF sucralfate 1 gram Tablet 1 g PO 0700,1100,1600 30 Days Qty: 90 1RF pantoprazole [Protonix] 40 mg tablet,delayed release (DR/EC) 40 mg PO BID 30 Days Qty: 60 3RF Rx Instructions: 40 mg twice daily for 3 months and then once daily. Breztri Aerosphere 160-9-4.8 mcg/actuation HFA aerosol inhaler 2 inh inhalation BID Primary Care Provider: Julio Draper Referrals: Julio Draper MD [Primary Care Provider] - 3-5 Days if not improving Print Language: Ukrainian Disposition Disposition: Home, Self Care
[2024-03-19 10:03] LABS: Absolute Lymphocyte Count 1.92 X10^3/uL (0.83-4.51); Absolute Neutrophil Count 6.2 X10^3/uL (2.0-7.7); Basophil# 0.08 X10^3/uL; Basophil% 0.8 % (0-1); Eosinophils% 5.2 % (0-5); Hematocrit 36.3 % (37-47); Hemoglobin 11.2 g/dL (12.0-15.0); Lymphocyte # 1.92 X10^3/ul (0.83-4.51); Lymphocyte % 20.1 % (19-41); Mean Corp Hgb Conc 30.9 g/dL (32-36); Mean Corpuscular Hgb 29.8 pg (27.0-32.0); Mean Corpuscular Volume 96.5 fL (81-99); Mean Platelet Vol. 10.6 fl (6.2-12.0); Monocyte# 0.83 X10^3/uL; Monocyte% 8.7 % (0-10); NRBC Flagged by Analyzer 0 % (0-5); Neutrophil % 64.9 % (47-70); Platelet Count 217 K/mm3 (150-450); RBC Distribution Width CV 12.9 % (11.6-14.6); RBC Distribution Width SD 45.8 fl (35.1-43.9); Red Blood Count 3.76 M/mm3 (4.2-5.4); White Blood Count 9.6 K/mm3 (4.4-11.0)
[2024-03-19 10:20] LABS: Anion Gap 5 (5-15); BUN 19 mg/dL (7-18); BUN/Creat Ratio 7.4 RATIO (10-20); Calcium,Total 9.3 mg/dL (8.5-10.1); Chloride 99 mmol/L (98-107); Creatinine, Serum 2.57 mg/dL (0.55-1.02); EST Glomerular Filtration Rate 20 mL/min (>60); Est Glom Filt Rate - Afr Amer 24 mL/min (>60); Estimated Creatinine Clearance 19.37 ml/min; Glucose 104 mg/dL (74-106); Potassium 4.3 mmol/L (3.5-5.1); Sodium Level 137 mmol/L (136-145); Troponin-I HS (w/2H Reflex) 6 pg/mL (3.0-54.0)
[2024-03-19 11:59] LABS: Reflex Troponin-HS? (from REC) Y
[2024-03-19 12:41] LABS: Troponin-I HS 8 pg/mL (3.0-54.0)
== END 2024-03-19 13:52 | disposition home or self-care (01) ==
PROVIDERS: Emergency Provider Emergency Medicine; PCP Internal Medicine; Visit Provider Emergency Medicine
DX: R07.89 Other chest pain (principal); I12.0 Hypertensive chronic kidney disease with stage 5 chronic kidney disease or end stage renal disease; N18.6 End stage renal disease; J44.9 Chronic obstructive pulmonary disease, unspecified; I48.91 Unspecified atrial fibrillation; Z87.891 Personal history of nicotine dependence; E78.5 Hyperlipidemia, unspecified; Z99.2 Dependence on renal dialysis; I25.2 Old myocardial infarction; Z79.51 Long term (current) use of inhaled steroids; K21.9 Gastro-esophageal reflux disease without esophagitis; Z79.899 Other long term (current) drug therapy; F41.9 Anxiety disorder, unspecified; Z96.619 Presence of unspecified artificial shoulder joint; Z90.49 Acquired absence of other specified parts of digestive tract
CPT/HCPCS: 71045; 80048; 84484; 85025; 93005; 99284; A4216

== ENCOUNTER 2024-04-09 14:21 | Emergency (ER) | payer MEDICARE, SELFPAY ==
[2024-04-09 14:22] VITALS: BP 120/68; PULSE 103; RESP 22; TEMP 36.6; O2SAT 95
--- NOTE | 2024-04-09 15:13 | EX.ED.DYSGE1 ---
HPI History of Present Illness Chief Complaint: Other, Pain/Inj Detail of Chief Complaint: Spasming of left upper extremity, left chest wall, right hand and feet Informant: patient Onset/Context/Timing Onset: - (Today after dialysis) Context: Sudden Onset Timing: Intermittent Quality: Muscle spasms Location: Documented under the detail of cc Current Severity: Moderate Maximum Severity: Moderate Worsened by: Nothing Relieved by: nothing Associated Symptoms Associated Symptoms: None Narrative Narrative: Patient is a 68-year-old woman on hemodialysis Tuesday, Tuesday and Tuesday. She recently had her metoprolol and Norvasc dose discontinued because of hemodynamic instability during dialysis i.e. significant hypotension. She had dialysis today. She did have a drop in her blood pressure. She then developed spasm involving the left upper extremity, left chest wall, right hand and feet. She was questioning whether this was due to discontinuation of metoprolol and Norvasc. Patient denies fever, chills night sweats. Patient denies headache, visual, ocular auditory symptoms. Patient of trouble with speech or swallowing. She does endorse numbness around her lips/mouth and hands. She does not complain of shortness of breath. She denies chest discomfort. She was recently seen for chest pain. Patient denies abdominal pain, nausea, vomiting or diarrhea. She recently had her fistula revised. Fistula is left upper extremity. Prior similar symptoms: No Recent Illness/[facility]: [facility] Medical History Post-menopausal History of steroid therapy History of renal dialysis Blackout Gastric reflux Emphysema, unspecified Shortness of breath on exertion Normal Holter exam History of echocardiogram Hypertension Cardiology follow-up encounter History of heart attack History of atrial fibrillation Hemodialysis catheter malfunction Former cigarette smoker GERD (gastroesophageal reflux disease) Hyperlipidemia History of GI bleed Pleural effusion ESRD (end stage renal disease) on dialysis Essential hypertension NSTEMI (non-ST elevated myocardial infarction) EARNEST (acute kidney injury) Hx of ulcer disease Former smoker Atrial fibrillation Elevated blood pressure reading without diagnosis of hypertension Chronic hypoxemic respiratory failure Acute bronchospasm Acute exacerbation of chronic obstructive pulmonary disease Empyema of pleural space Syncope Bleeding ulcer Anemia requiring transfusions Lung nodules Pleurisy On home oxygen therapy Migraines Hyperglycemia Elevated serum creatinine Sinus tachycardia Fever and chills Dyspnea on exertion Acute bronchospasm COPD exacerbation Leukocytosis Community acquired pneumonia Anxiety Benign essential tremor Former tobacco use Pneumonia due to COVID-19 virus Asthma COPD (chronic obstructive pulmonary disease) Tobacco use Tremor Benign essential hypertension Home Medications ?Medication ?Instructions ?Recorded ?Last Taken ?Type albuterol sulfate 90 mcg/actuation 2 puff inhalation Q4H PRN PRN 08/28/15 12/22/23 04:30 History aerosol inhaler (Ventolin HFA) Shortness Of Breath montelukast 10 mg tablet 10 mg PO QHS ALLERGIES 02/25/18 03/12/24 History fluticasone propionate 50 2 spray intranasal QHS ALLERGIES 05/01/21 03/12/24 History mcg/actuation nasal spray,suspension metoprolol tartrate 25 mg tablet 25 mg PO BID HTN 30 days #60 tabs 06/16/23 03/12/24 20:00 Rx pantoprazole 40 mg tablet,delayed 40 mg PO BID GERD 30 days #60 tabs 06/23/23 03/12/24 Rx release (Protonix) sucralfate 1 gram tablet 1 g PO 0700,1100,1600 GI 30 days 06/23/23 03/12/24 Rx #90 tabs amlodipine 5 mg tablet 5 mg PO DAILY 09/23/23 03/12/24 History atorvastatin 40 mg tablet 40 mg PO QHS 09/23/23 03/12/24 History ipratropium 0.5 mg-albuterol 3 mg 3 ml inhalation Q6H PRN shortness 09/23/23 03/12/24 History (2.5 mg base)/3 mL nebulization of breath or wheezing soln isosorbide mononitrate 60 mg 60 mg PO DAILY 09/23/23 03/12/24 History tablet,extended release 24 hr nitroglycerin 0.4 mg sublingual 0.4 mg sublingual Q5-15M PRN chest 09/23/23 Unknown History tablet pain polyethylene glycol 3350 17 17 g PO DAILY PRN constipation 09/23/23 Unknown History gram/dose oral powder buspirone 10 mg tablet 10 mg PO BID 09/27/23 03/12/24 History budesonide 160 mcg-glycopyr 9 2 inh inhalation BID 02/22/24 03/13/24 History mcg-formot 4.8 mcg/actuation HFA inhaler (Breztri Aerosphere) diazepam 2 mg tablet (Valium) 2 mg PO TID PRN muscle spasm #10 04/09/24 Unknown Rx tabs Allergy/AdvReac Type Severity Reaction Status Date / Time cephalexin monohydrate (From Allergy Chest Verified 04/09/24 14:24 Keflex) tightness Family History Other Adopted Surgical History Hx of colonoscopy History of cardiac catheterization Hx of total shoulder replacement Hx of chest tube placement Hx of esophagogastroduodenoscopy H/O bilateral salpingectomy History of herniorrhaphy Hx of tonsillectomy Hx of cholecystectomy Social History adopted: Yes household members: family housing: house Smoking Status: Former smoker how long ago did patient quit smokin years ago alcohol intake: never substance use type: does not use caffeine: Yes Type: coffee Number of servings: 1 ROS ROS ED Constitutional Constitutional ED: Denies chills, fever(s), subjective or sweats Eyes Eyes: Denies blurry vision or change in vision ENT ENT ED: Denies rhinorrhea or sore throat Cardiovascular Cardiovascular: Denies chest pain, orthopnea, palpitations or paroxysmal nocturnal dyspnea Respiratory/Chest Respiratory/Chest: Denies cough, dyspnea, dyspnea on exertion, orthopnea or paroxysmal nocturnal dyspnea Gastrointestinal Gastrointestinal: Denies abdominal pain, nausea or vomiting Musculoskeletal Musculoskeletal: Reports other Details: Spasms as detailed in the HPI narrative ; Denies arthralgias or myalgias Integumentary Denies rash Neurologic Neurologic: Reports other Details: Patient has a tension tremor. ; Denies paresthesias or weakness Psychiatric Psychiatric: Denies anxiety Hematologic/Lymphatic Hematologic/Lymphatic: Reports systems reviewed and no addt'l complaints, except as documented EXAM Physical Exam Const Vital Signs: 04/09/24 14:22 04/09/24 15:20 Temperature 97.8 F Temperature Source Temporal Pulse Rate 103 H Respiratory Rate 22 H Respiratory Pattern Normal Blood Pressure 120/68 Blood Pressure Mean 85 Pulse Ox 95 Oxygen Delivery Method Nasal Cannula Oxygen Flow Rate (L/min) 3 Positive well nourished and well developed Constitutional Narrative: Patient appears in no distress. She is on oxygen via nasal cannula. General Appearance ED: well developed; Negative for cyanotic or diaphoretic HEENT Reports dry mucous membranes HEENT Narrative: Patient has positive Chvostek sign bilaterally. Ears normal. Nares patent. Mouth ED: Yes dry mucous membranes Mouth: dry mucous membranes Eyes PERRL and EOMs intact bilaterally Eyes Narrative: There is no nystagmus. Conjunctiva slightly pale. General Eye ED: Negative for scleral icterus Neck no lymphadenopathy, supple and no JVD Neck Narrative: Trachea is midline there is no JVD. Chest Wall inspection of chest normal and palpation of chest normal Resp normal respiratory effort and clear to auscultation bilaterally Cardio regular rate, regular rhythm, S1 normal heart sound, S2 normal heart sound and no murmurs Extremity normal to inspection Extremity Narrative: Incision site left fistula is healing without evidence infection. Median, radial and ulnar function intact. Patient has distal radial pulses. Lower extremity exam out edema, swelling or discoloration. DP pulses palpable and symmetric. Neuro oriented x3, CN's II-XII intact bilaterally and no sensory deficits noted Neuro Narrative: There is no dysmetria. Patient has nonsustained 2-3 beat clonus right and left ankle. Babinski sign was negative bilaterally. Sensorium / Orientation: alert Motor Exam: strength 5/5 throughout Psych mental status grossly normal Skin no rashes or lesions noted, no wounds and No skin turgor normal General Skin Exam: Negative for elasticity normal or jaundice MDM MDM MDM Narrative Medical decision making narrative: This may represent hyperventilation, need to evaluate for hypocalcemia for this reason we will obtain BMP, phosphorus and also will obtain magnesium level. Patient was placed on the monitor to assess for any dysrhythmia. History & Record Review Additional record(s) reviewed:: Prior inpatient record (Patient was admitted to postacute hospital in October for respiratory failure. She had effusions at that time as well.Patient was seen March 19 for chest pain. Workup was negative.) and Prior ED visit Lab Data Attestation: I reviewed the patient's lab results. Lab results narrative: CBC reveals mild anemia, which is chronic. BUN and creatinine are elevated at 25 3.0, which is not surprising since patient is on hemodialysis. Phosphorus was normal. Magnesium is normal. Will treat her muscle spasms with Valium. Labs: Laboratory Results - last 24 hr 04/09/24 15:15 WBC 9.1 RBC 3.34 L Hgb 10.2 L Hct 32.1 L MCV 96.1 MCH 30.5 MCHC 31.8 L RDW Std Deviation 47.3 H RDW Coeff of Llay 13.5 Plt Count 219 MPV 9.8 Immature Gran % (Auto) 0.300 Neut % (Auto) 71.6 H Lymph % (Auto) 15.7 L [place] % (Auto) 8.6 Eos % (Auto) 3.3 Baso % (Auto) 0.5 Absolute Neuts (auto) 6.5 Absolute Lymphs (auto) 1.43 Nucleated RBC % 0 Sodium 139 Potassium 4.6 Chloride 101 Carbon Dioxide 32.0 Anion Gap 5 BUN 25 H Creatinine 3.00 H Est GFR (MDRD) Af Amer 20 L Est GFR (MDRD) Non-Af 17 L BUN/Creatinine Ratio 8.3 L Glucose 141 H Calcium 9.1 Phosphorus 3.0 Magnesium 1.9 ABG Data ABG results: ABG 04/09/24 15:26 Specimen Type ASAEL Sample Site Not entered O2 % 3.0 VBG pH 7.48 H VBG pO2 149 H VBG HCO3 30 H VBG Total CO2 31 VBG O2 Sat (Calc) 99 H VBG Base Excess 6 H POC Mix VBG pCO2 Pt Tmp 39.7 L O2 Delivery Device Not entered Treatment and Re-Evaluation :: Patient and were informed of results and plan. Discharge Plan Triage Chief Complaint: Other, Pain/Inj ED Provider: Zach Thomas Dx/Rx/DC Orders Clinical Impression: Muscle spasm, Essential hypertension, ESRD (end stage renal disease) on dialysis, Hyperlipidemia, Coronary artery disease Instructions: ED Muscle Spasm Prescriptions: New diazepam [Valium] 2 mg tablet 2 mg PO TID PRN (Reason: muscle spasm) Qty: 10 0RF No Action nitroglycerin 0.4 mg tablet, sublingual 0.4 mg sublingual Q5-15M PRN (Reason: chest pain) Rx Instructions: do not exceed 3 doses per episode polyethylene glycol 3350 17 gram/dose powder 17 g PO DAILY PRN (Reason: constipation) amlodipine 5 mg tablet 5 mg PO DAILY isosorbide mononitrate 60 mg tablet extended release 24 hr 60 mg PO DAILY ipratropium-albuterol 0.5 mg-3 mg(2.5 mg base)/3 mL solution for nebulization 3 ml inhalation Q6H PRN (Reason: shortness of breath or wheezing) atorvastatin 40 mg tablet 40 mg PO QHS buspirone 10 mg tablet 10 mg PO BID albuterol sulfate [Ventolin HFA] 1 INHALER inhaler 2 puff inhalation Q4H PRN PRN (Reason: Shortness Of Breath) Patient Comments: shortness of breath montelukast 10 MG tablet 10 mg PO QHS fluticasone propionate 50 mcg/actuation spray,suspension 2 spray INTRANASAL QHS Patient Comments: Use 1 [place] in each nostril once daily. metoprolol tartrate 25 mg Tablet 25 mg PO BID 30 Days Qty: 60 0RF sucralfate 1 gram Tablet 1 g PO 0700,1100,1600 30 Days Qty: 90 1RF pantoprazole [Protonix] 40 mg tablet,delayed release (DR/EC) 40 mg PO BID 30 Days Qty: 60 3RF Rx Instructions: 40 mg twice daily for 3 months and then once daily. Breztri Aerosphere 160-9-4.8 mcg/actuation HFA aerosol inhaler 2 inh inhalation BID Primary Care Provider: Julio Draper Referrals: Julio Draper MD [Primary Care Provider] - Print Language: Urdu Disposition Disposition: Home, Self Care
[2024-04-09 15:25] LABS: Absolute Lymphocyte Count 1.43 X10^3/uL (0.83-4.51); Absolute Neutrophil Count 6.5 X10^3/uL (2.0-7.7); Basophil# 0.05 X10^3/uL; Basophil% 0.5 % (0-1); Eosinophils% 3.3 % (0-5); Hematocrit 32.1 % (37-47); Hemoglobin 10.2 g/dL (12.0-15.0); Lymphocyte # 1.43 X10^3/ul (0.83-4.51); Lymphocyte % 15.7 % (19-41); Mean Corp Hgb Conc 31.8 g/dL (32-36); Mean Corpuscular Hgb 30.5 pg (27.0-32.0); Mean Corpuscular Volume 96.1 fL (81-99); Mean Platelet Vol. 9.8 fl (6.2-12.0); Monocyte# 0.78 X10^3/uL; Monocyte% 8.6 % (0-10); NRBC Flagged by Analyzer 0 % (0-5); Neutrophil # 6.52 X10^3/uL (2.7-7.7); Neutrophil % 71.6 % (47-70); Platelet Count 219 K/mm3 (150-450); RBC Distribution Width CV 13.5 % (11.6-14.6); RBC Distribution Width SD 47.3 fl (35.1-43.9); Red Blood Count 3.34 M/mm3 (4.2-5.4); White Blood Count 9.1 K/mm3 (4.4-11.0)
[2024-04-09 15:29] LABS: Blood Gas Specimen Type VEN; O2 Delivery Device Not entered; SITE Not entered; VBG BASE EXCESS 6 mmol/L (-1.0-3.5); VBG Bicarbonate 30 mmol/L (22-26); VBG PO2 149 mmHg (25-40); VBG SO2 99 % (50-70); VBG TCO2 31 mmol/L (23-33); VBG pCO2 39.7 mmHg (41-51); VBG pH 7.48 (7.32-7.42)
[2024-04-09 15:37] LABS: Anion Gap 5 (5-15); BUN 25 mg/dL (7-18); BUN/Creat Ratio 8.3 RATIO (10-20); Calcium,Total 9.1 mg/dL (8.5-10.1); Chloride 101 mmol/L (98-107); EST Glomerular Filtration Rate 17 mL/min (>60); Est Glom Filt Rate - Afr Amer 20 mL/min (>60); Glucose 141 mg/dL (74-106); Magnesium 1.9 mg/dL (1.6-2.6); Potassium 4.6 mmol/L (3.5-5.1); Sodium Level 139 mmol/L (136-145)
[2024-04-09 16:18] VITALS: BP 98/54; PULSE 86; RESP 17; TEMP 36.6; O2SAT 99
== END 2024-04-09 16:27 | disposition home or self-care (01) ==
PROVIDERS: Emergency Provider Emergency Medicine; PCP Internal Medicine; Visit Provider Emergency Medicine
DX: M62.838 Other muscle spasm (principal); I12.0 Hypertensive chronic kidney disease with stage 5 chronic kidney disease or end stage renal disease; N18.6 End stage renal disease; J44.9 Chronic obstructive pulmonary disease, unspecified; I48.91 Unspecified atrial fibrillation; I95.9 Hypotension, unspecified; E78.5 Hyperlipidemia, unspecified; Z87.891 Personal history of nicotine dependence; I25.10 Atherosclerotic heart disease of native coronary artery without angina pectoris; Z99.2 Dependence on renal dialysis; I25.2 Old myocardial infarction; Z79.51 Long term (current) use of inhaled steroids; Z79.899 Other long term (current) drug therapy; Z96.619 Presence of unspecified artificial shoulder joint; Z90.49 Acquired absence of other specified parts of digestive tract
CPT/HCPCS: 80048; 82803; 83735; 84100; 85025; 99284; A4216

== ENCOUNTER 2024-06-05 08:53 | Day surgery (SDC) | payer MEDICARE, OTHER, SELFPAY ==
[2024-05-24 14:34] LABS: Hematocrit 36.4 % (37-47); Hemoglobin 11.3 g/dL (12.0-15.0); Mean Corpuscular Volume 96.6 fL (81-99); Mean Platelet Vol. 9.6 fl (6.2-12.0); Platelet Count 297 K/mm3 (150-450); RBC Distribution Width CV 13.2 % (11.6-14.6); RBC Distribution Width SD 46.7 fl (35.1-43.9); Red Blood Count 3.77 M/mm3 (4.2-5.4); White Blood Count 8.5 K/mm3 (4.4-11.0)
[2024-05-24 14:54] LABS: Anion Gap 8 (5-15); BUN 27 mg/dL (7-18); BUN/Creat Ratio 7.1 RATIO (10-20); Calcium,Total 9.3 mg/dL (8.5-10.1); Chloride 103 mmol/L (98-107); Creatinine, Serum 3.78 mg/dL (0.55-1.02); EST Glomerular Filtration Rate 13 mL/min (>60); Est Glom Filt Rate - Afr Amer 15 mL/min (>60); Glucose 88 mg/dL (74-106); Potassium 4.4 mmol/L (3.5-5.1); Sodium Level 138 mmol/L (136-145)
[2024-06-05] VITALS (9 sets, daily range): BP systolic 125–147; BP diastolic 57–75; PULSE 79–91; RESP 16–20; TEMP 36.8–37.3; O2SAT 82–99
--- NOTE | 2024-06-05 08:59 | PRE.ANES_ITS ---
ASA Classification* ASA Classification ASA Classification: 3 Assessment & Plan Anesthesia* Anesthesia Assessment Anesthesia Assessment: Discussed sedation and/or anesthesia options, risks, benefits, and alternatives with patient/parents/legal guardian/POA. Questions invited. The patient/parents/legal guardian/POA seems to understand and agrees to proceed with anesthesia plan. Reviewed the physical assessment, medical history, allergy history and patient home medications list prior to surgery/procedure/anesthetic and documented any changes. Performed airway and anesthesia risk assessments. Anesthesia Type Anesthesia Type: MAC Anesthesia Focused Assessment* Airway Assessment Mouth opens: >3 cm Mallampati Score: II Focused Labs Anesthesia Preop lab: CBC WBC 8.5 K/mm3 (4.4-11.0) 05/24/24 14:00 RBC 3.77 M/mm3 (4.2-5.4) L 05/24/24 14:00 Hgb 11.3 g/dL (12.0-15.0) L 05/24/24 14:00 Hct 36.4 % (37-47) L 05/24/24 14:00 Plt Count 297 K/mm3 (150-450) 05/24/24 14:00 CHEMISTRY Potassium 4.4 mmol/L (3.5-5.1) 05/24/24 14:00 Sodium 138 mmol/L (136-145) 05/24/24 14:00 Magnesium 1.9 mg/dL (1.6-2.6) 04/09/24 15:15 Phosphorus 3.0 mg/dL (2.5-4.9) 04/09/24 15:15 BUN 27 mg/dL (7-18) H 05/24/24 14:00 Creatinine 3.78 mg/dL (0.55-1.02) H 05/24/24 14:00 Glucose 88 mg/dL (74-106) 05/24/24 14:00 TSH 1.37 uIU/mL (0.358-3.74) 07/08/23 06:25 COAG PT 14.5 SECONDS (11.7-14.9) 07/05/23 15:45 Urine Test Negative Negative 06/20/23 17:00 Pre-Assessment Diagnosis/Proposed Procedure Planned Operative Procedure(s): (L) stage 3 left upper extremity Arteriovenous Fistula,Transposition Anesthesia History Anesthesia History - gastroenterology manager: Anesthesia History - gastroenterology manager Hx Hospitalization Yes 05/22/24 10:23 Any Problems With Anesthesia No 05/22/24 10:23 Cholinesterase deficiency No 05/22/24 10:23 You/Your Family Experience No: ADOPTED-NO HISTORY 05/22/24 10:23 fever (hyperthermia) with Relationship Recent Exposure to Contagious No 03/13/24 10:45 Disease Does patient have nerve No 05/22/24 10:23 stimulator Patient instructed to have device shut off --Does patient have Pacemaker or ICD? When Was Last Pacemaker Check QUESTION #4 FULL TEXT: You/Your Family Experience fever (hyperthermia) with Anesthesia Last Oral Intake Last Oral intake: Last Oral Intake NPO since Meds taken in AM with sips of water? Meds patient instructed to take am of surgery PONV PONV - gastroenterology manager: PONV - gastroenterology manager Female Yes 05/22/24 10:23 HX of Motion Sickness No 05/22/24 10:23 HX of N/V After Surgery No 05/22/24 10:23 Non-Smoker Yes 05/22/24 10:23 Duration of Surgery greater Yes 05/22/24 10:23 than 60 minutes Number of Risk Factors 3 05/22/24 10:23 PONV Score Moderate Risk 05/22/24 10:23 Height & Weight Height & Weight: Anesthesia: Height & Weight Height 5 ft 3 in 04/19/24 08:24 Respiratory Assessment Respiratory Assessment - gastroenterology manager: Respiratory Tract Infection Hx - gastroenterology manager Hx Respiratory Tract Infection No 05/22/24 10:23 STOP Sleep Apnea STOP Sleep Apnea - gastroenterology manager: STOP Sleep Apnea - gastroenterology manager Hx Hypertension Yes: MEDS D/C'D PER PCP 05/22/24 10:23 Hx Sleep Apnea No 05/22/24 10:23 CPAP BIPAP Do you snore loudly (louder No 05/22/24 10:23 than talking or can be heard Do you often feel tired/ No 05/22/24 10:23 fatigued/ sleepy during daytime? Has anyone observed you stop No 05/22/24 10:23 breathing during sleep? STOP Results Negative 05/22/24 10:23 QUESTION #5 FULL TEXT : Do you snore loudly (louder than talking or can be heard through closed doors)? Tobacco Use History Tobacco Use History - gastroenterology manager: Tobacco Use History - gastroenterology manager Tobacco Use Cigarettes 04/27/21 08:57 Smoking Status Former smoker 05/22/24 10:23 Hx Tobacco Use No 05/22/24 10:23 Years Smoking Packs Smoked per Day Smoking Cessation Date was Yes - quit smoking within 15 05/22/24 10:23 within the last 15 years years Hx Smoking Cessation Date 04/23/14 05/22/24 10:23 Hx Smoking Cessation Counseling Hematologic Medial History Hematologic Hx - gastroenterology manager: Hematologic Medical Hx - front desk supervisor Hx of Blood Transfusion Yes 05/22/24 10:23 Hx of Transfusion in last 3 No 05/22/24 10:23 Months Date of Last Transfusion (if within last 3 months) Ever experience any problems No 05/22/24 10:23 with transfusion(s)? Specify any problems Hx of Preganancy in last 3 No 05/22/24 10:23 Months Nurse Filling Out Transfusion VCHRISTIN 05/22/24 10:23 & Questions: Date: 05/22/24 05/22/24 10:23 Time: 10:24 05/22/24 10:23 Patient unable to answer at this time (ie. confused, unrespo /Reproduction History /Reproductive History - gastroenterology manager: /Reproductive Hx- gastroenterology manager Hx Now Gestational Age (in weeks): EDC: Hx Hx Para Hx Section SAB Active Medications Active Medications: Current Medications Generic Name Dose Route Start Last Admin Trade Name Freq PRN Reason Stop Dose Admin Vancomycin HCl 1,000 mg in 200 mls @ 200 mls/hr 06/05/24 10:30 Vancomycin IV 06/05/24 11:29 PREOP ONE Sodium Chloride 500 mls @ 0 mls/hr 06/05/24 09:00 IV .Q0M FAUSTO KVO PFSH Medical History Post-menopausal History of steroid therapy History of renal dialysis Blackout Gastric reflux Emphysema, unspecified Shortness of breath on exertion Normal Holter exam History of echocardiogram Hypertension Cardiology follow-up encounter History of heart attack History of atrial fibrillation Hemodialysis catheter malfunction Former cigarette smoker GERD (gastroesophageal reflux disease) Hyperlipidemia History of GI bleed Pleural effusion ESRD (end stage renal disease) on dialysis Essential hypertension NSTEMI (non-ST elevated myocardial infarction) EARNEST (acute kidney injury) Hx of ulcer disease Former smoker Atrial fibrillation Elevated blood pressure reading without diagnosis of hypertension Chronic hypoxemic respiratory failure Acute bronchospasm Acute exacerbation of chronic obstructive pulmonary disease Empyema of pleural space Syncope Bleeding ulcer Anemia requiring transfusions Lung nodules Pleurisy On home oxygen therapy Migraines Hyperglycemia Elevated serum creatinine Sinus tachycardia Fever and chills Dyspnea on exertion Acute bronchospasm COPD exacerbation Leukocytosis Community acquired pneumonia Anxiety Benign essential tremor Former tobacco use Pneumonia due to COVID-19 virus Asthma COPD (chronic obstructive pulmonary disease) Tobacco use Tremor Benign essential hypertension Home Medications ?Medication ?Instructions ?Recorded ?Last Taken ?Type albuterol sulfate 90 mcg/actuation 2 puff inhalation Q4H PRN PRN 08/28/15 12/22/23 04:30 History aerosol inhaler (Ventolin HFA) Shortness Of Breath montelukast 10 mg tablet 10 mg PO QHS ALLERGIES 02/25/18 03/12/24 History fluticasone propionate 50 2 spray intranasal QHS ALLERGIES 05/01/21 03/12/24 History mcg/actuation nasal spray,suspension atorvastatin 40 mg tablet 40 mg PO QHS 09/23/23 03/12/24 History ipratropium 0.5 mg-albuterol 3 mg 3 ml inhalation Q6H PRN shortness 09/23/23 03/12/24 History (2.5 mg base)/3 mL nebulization of breath or wheezing soln isosorbide mononitrate 60 mg 60 mg PO DAILY 09/23/23 03/12/24 History tablet,extended release 24 hr nitroglycerin 0.4 mg sublingual 0.4 mg sublingual Q5-15M PRN chest 09/23/23 Unknown History tablet pain polyethylene glycol 3350 17 17 g PO DAILY PRN constipation 09/23/23 Unknown History gram/dose oral powder buspirone 10 mg tablet 10 mg PO BID 09/27/23 03/12/24 History budesonide 160 mcg-glycopyr 9 2 inh inhalation BID 02/22/24 03/13/24 History mcg-formot 4.8 mcg/actuation HFA inhaler (Breztri Aerosphere) acetaminophen 325 mg capsule 650 mg PO Q6H PRN pain 04/19/24 Unknown History (Tylenol) ondansetron 4 mg disintegrating 4 mg PO Q8H PRN nausea and vomiting 04/19/24 Unknown History tablet sucralfate 1 gram tablet 1 g PO BID GI 30 days #60 tabs 05/01/24 Unknown Rx pantoprazole 40 mg tablet,delayed 40 mg PO BID GERD 05/22/24 Unknown History release (Protonix) vitamin B complex-vitamin C-folic 1 tab PO DAILY 05/22/24 Unknown History acid 0.8 mg tablet (Galina-Jose Elias) Allergy/AdvReac Type Severity Reaction Status Date / Time cephalexin monohydrate (From Allergy Chest Verified 05/24/24 13:39 Keflex) tightness Family History Other Adopted Surgical History Hx of surgical procedure Hx of colonoscopy AVF (arteriovenous fistula) (03/13/24) Hx of colonoscopy History of cardiac catheterization Hx of total shoulder replacement Hx of chest tube placement Hx of esophagogastroduodenoscopy H/O bilateral salpingectomy History of herniorrhaphy Hx of tonsillectomy Hx of cholecystectomy Social History adopted: Yes household members: family housing: house Smoking Status: Former smoker how long ago did patient quit smokin years ago alcohol intake: never substance use type: does not use caffeine: Yes Type: coffee Number of servings: 1 Review of Systems (Anesthesia) ROS Narrative System reviewed and no additional complaints, except as documented.
[2024-06-05] MEDS: Vancomycin IV 1,000 MG/200 ML BAG 200 MG IV (09:26)
[2024-06-05] MEDS: 0.9% Normal Saline (500mL Bag) 500 ML 15 ML IV (09:26)
--- NOTE | 2024-06-05 10:55 | HP.PCM_ITS ---
History and Physical Allergies cephalexin monohydrate (From [employer]) Allergy (Verified 05/24/24 13:39) Chest tightness Medications ?Medication ?Instructions ?Recorded ?Confirmed ?Type albuterol sulfate 90 mcg/actuation 2 puff inhalation Q4H PRN PRN 08/28/15 05/24/24 History aerosol inhaler (Ventolin HFA) Shortness Of Breath montelukast 10 mg tablet 10 mg PO QHS ALLERGIES 02/25/18 05/24/24 History fluticasone propionate 50 2 spray intranasal QHS ALLERGIES 05/01/21 05/24/24 History mcg/actuation nasal spray,suspension atorvastatin 40 mg tablet 40 mg PO QHS 09/23/23 05/24/24 History ipratropium 0.5 mg-albuterol 3 mg 3 ml inhalation Q6H PRN shortness 09/23/23 05/24/24 History (2.5 mg base)/3 mL nebulization of breath or wheezing soln isosorbide mononitrate 60 mg 60 mg PO DAILY 09/23/23 05/24/24 History tablet,extended release 24 hr nitroglycerin 0.4 mg sublingual 0.4 mg sublingual Q5-15M PRN chest 09/23/23 1 07/24/23 History tablet pain polyethylene glycol 3350 17 17 g PO DAILY PRN constipation 09/23/23 05/24/24 History gram/dose oral powder buspirone 10 mg tablet 10 mg PO BID 09/27/23 05/24/24 History budesonide 160 mcg-glycopyr 9 2 inh inhalation BID 02/22/24 05/24/24 History mcg-formot 4.8 mcg/actuation HFA inhaler (Breztri Aerosphere) acetaminophen 325 mg capsule 650 mg PO Q6H PRN pain 04/19/24 05/24/24 History (Tylenol) ondansetron 4 mg disintegrating 4 mg PO Q8H PRN nausea and vomiting 04/19/24 05/24/24 History tablet sucralfate 1 gram tablet 1 g PO BID GI 30 days #60 tabs 05/01/24 05/24/24 Rx pantoprazole 40 mg tablet,delayed 40 mg PO BID GERD 05/22/24 05/24/24 History release (Protonix) vitamin B complex-vitamin C-folic 1 tab PO DAILY 05/22/24 05/24/24 History acid 0.8 mg tablet (Galina-Jose Elias) Is last menstrual period known: No Post menopausal: Yes Patient : No Have you fallen in the past year?: Yes Subjective Details: Doing well, no hand numbness/weakness/cramping. Has noted her home pulse ox now lower on left than right side. Objective Details: A&O x3, NAD RRR Resp non labored +thrill, +radial pulse Coding Level of Care Code Global Post Op Diagnoses End-stage renal disease (ESRD) N18.6 [facility] Medical History (Updated 05/22/24 @ 10:22 by Soheila Sesay) Post-menopausal History of steroid therapy History of renal dialysis Blackout Gastric reflux Emphysema, unspecified Shortness of breath on exertion Normal Holter exam History of echocardiogram Hypertension Cardiology follow-up encounter History of heart attack History of atrial fibrillation Hemodialysis catheter malfunction Former cigarette smoker GERD (gastroesophageal reflux disease) Hyperlipidemia History of GI bleed Pleural effusion ESRD (end stage renal disease) on dialysis Essential hypertension NSTEMI (non-ST elevated myocardial infarction) EARNEST (acute kidney injury) Hx of ulcer disease Former smoker Atrial fibrillation Elevated blood pressure reading without diagnosis of hypertension Chronic hypoxemic respiratory failure Acute bronchospasm Acute exacerbation of chronic obstructive pulmonary disease Empyema of pleural space Syncope Bleeding ulcer Anemia requiring transfusions Lung nodules Pleurisy On home oxygen therapy Migraines Hyperglycemia Elevated serum creatinine Sinus tachycardia Fever and chills Dyspnea on exertion Acute bronchospasm COPD exacerbation Leukocytosis Community acquired pneumonia Anxiety Benign essential tremor Former tobacco use Pneumonia due to COVID-19 virus Asthma COPD (chronic obstructive pulmonary disease) Tobacco use Tremor Benign essential hypertension Surgical History (Updated 05/22/24 @ 10:22 by Soheila Sesay) Hx of surgical procedure Hx of colonoscopy AVF (arteriovenous fistula) (03/13/24) Hx of colonoscopy History of cardiac catheterization Hx of total shoulder replacement Hx of chest tube placement Hx of esophagogastroduodenoscopy H/O bilateral salpingectomy History of herniorrhaphy Hx of tonsillectomy Hx of cholecystectomy Family History Other Adopted Social History adopted: Yes household members: family housing: house Smoking Status: Former smoker how long ago did patient quit smokin years ago alcohol intake: never substance use type: does not use caffeine: Yes Type: coffee Number of servings: 1 Assessment and Plan (No Qualifiers) Assessment and Plan (1) End-stage renal disease (ESRD): Status: Chronic Plan: -stage II transposition
--- NOTE | 2024-06-05 14:03 | PCM.OPRPT ---
Problems Associated Problem List Diagnoses (1) End-stage renal disease (ESRD): Operative Report (Standard) Operative Information Surgery/Procedure Performed: left arm stage II basilic fistula transposition Surgeon: Livan Love Date of Procedure: 06/05/24 Procedure Start Time: 12:09 Procedure Stop Time: 14:20 Pre-Operative Diagnosis: esrd, prior stage I basilic fistula Post-Operative Diagnosis: same Select all DRAINS/GRAFTS/IMPLANTS that apply: None Type of Anesthesia: General and Local Estimated Blood Loss: 6 Specimen collected: No Description of surgery: HPI: Patient is a 69-year-old female with end-stage renal disease and prior left stage I basilic fistula creation. She presents now for stage II transposition. Description of procedure: Upon obtaining form consent and verification correct patient procedure site patient was taken the op room where she was placed under general anesthesia. She was then positioned prepped and draped in usual sterile fashion and timeout was performed. Ultrasound used to evaluate the basilic vein which was of satisfactory caliber throughout with a high confluence with the brachial vein at the axilla. Skin overlying the fistula was anesthetized with lidocaine and longitudinal incision created. Bovie cautery was then used to dissect down through the subcutaneous tissue and self-retaining retractor put in position. Once the fistula was visualized sharp dissection was dissect free with care taken to identify and protect the adjacent nerves. Once the entire length of the fistula was dissected sidebranches were ligated with silk ties and divided. The distal aspect of the upper arm there were 2 large branches that confluence with the basilic vein that were of large caliber to potentially use as extension of the fistula for greater length. A tunneler was then used to create a tunnel in the anterior aspect of the upper arm the patient heparinized and allowed to circulate for 3 minutes. The fistula was then marked to maintain orientation clamped with a DeBakey clamp and the outflow clamped with a bulldog. The 2 large sidebranches were ligated distally and divided basilic vein divided at the confluence of all 3. Saline was then used to flush the 2 sidebranches the 1 on the medial aspect being of larger caliber and dilating up to satisfactory size. The branch at the lateral aspect was then ligated at its confluence with a silk tie. The stump of the basilic where it met the confluence was oversewn with 6-0 Prolene. The vein was then secured to the tunneler and pulled through the subcutaneous channel to the distal aspect of the incision. The arterial then beveled and anastomosis performed in a four-quadrant technique with a 6-0 Prolene running fashion. Prior to complete suture line the vessels were backbled and flushed heparinized saline. After completing suture line clamps removed satisfactory stasis was noted. Anastomosis was widely patent with no evidence of stricture. There is a palpable thrill throughout the fistula and the outflow vein. Heparin then reversed with protamine and the incision inspected for hemostasis. Was then closed with 2-0 Vicryl, 3-0 Vicryl followed by 4 Monocryl and Dermabond for the skin. The patient was then awakened anesthesia taken recovery room anticipated discharged home. Surgical Findings: See above Neonatal Doctor still operator gin: Yes Immigration Patrol Inspector: Yokasta Viramontes Tasks completed by purchasing administrative assistant: Opening & closing, Hemostasis: Tie and Retracting Complications Complications: No
--- NOTE | 2024-06-05 14:04 | DCINST_ITS ---
Discharge Instructions Diet Discharge Diet: No restrictions Activity Lifting Restrictions: do not lift > 20 lbs for 3 weeks with left arm Additional Activity Instructions:: do not submerge incision for 3 weeks Dressing / Incision Call your doctor if your incision/area has: Sudden Increased Bleeding, Increased Pain/ Swelling, Increased Redness and Foul Smelling Discharge Call your doctor if you observe: Fever of 101 or Higher Remove Dressing in: 2 days Cleanse incision/area with: Soap & Water Follow Up Care Test Results: Test results from this visit will be discussed in further detail at your follow- up appointment, if applicable. Discharge Plan Admission Attending Provider: Livan Love Primary Care Provider: Julio Draper Instructions Print Language: Greenlandic Discharge Orders/Prescriptions Prescriptions: New oxycodone 5 mg tablet 5 mg PO Q8H PRN (Reason: pain) 4 Days Qty: 12 0RF Continued nitroglycerin 0.4 mg tablet, sublingual 0.4 mg sublingual Q5-15M PRN (Reason: chest pain) Rx Instructions: do not exceed 3 doses per episode polyethylene glycol 3350 17 gram/dose powder 17 g PO DAILY PRN (Reason: constipation) isosorbide mononitrate 60 mg tablet extended release 24 hr 60 mg PO DAILY ipratropium-albuterol 0.5 mg-3 mg(2.5 mg base)/3 mL solution for nebulization 3 ml inhalation Q6H PRN (Reason: shortness of breath or wheezing) atorvastatin 40 mg tablet 40 mg PO QHS buspirone 10 mg tablet 10 mg PO BID sucralfate 1 gram tablet 1 g PO BID 30 Days Qty: 60 1RF acetaminophen [Tylenol] 325 mg capsule 650 mg PO Q6H PRN (Reason: pain) ondansetron 4 mg tablet,disintegrating 4 mg PO Q8H PRN (Reason: nausea and vomiting) albuterol sulfate [Ventolin HFA] 1 INHALER inhaler 2 puff inhalation Q4H PRN PRN (Reason: Shortness Of Breath) Patient Comments: shortness of breath montelukast 10 MG tablet 10 mg PO QHS fluticasone propionate 50 mcg/actuation spray,suspension 2 spray INTRANASAL QHS Patient Comments: Use 1 [place] in each nostril once daily. Breztri Aerosphere 160-9-4.8 mcg/actuation HFA aerosol inhaler 2 inh inhalation BID pantoprazole [Protonix] 40 mg tablet,delayed release (DR/EC) 40 mg PO BID Rx Instructions: 40 mg twice daily for 3 months and then once daily. Galina-Jose Elias 0.8 mg tablet 1 tab PO DAILY Referrals / Follow Up: Julio Draper MD [Primary Care Provider] - Disposition Disposition (needs filled in before D/C Order can be placed): Home, Self Care
[2024-06-05] MEDS: Bupivacaine 0.25% 30 ML Vial (14:10)
--- NOTE | 2024-06-05 14:30 | RAD_ITS ---
STUDY: X-RAY - LEFT HUMERUS REASON FOR EXAM: Female, 69 years old. 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 COMPARISON: None. FINDINGS: Normal visualized humerus. There is no demonstrated fracture or osseous destructive process. Surgical clips are seen. No radiopaque foreign body is seen. RAD/Humerus min 2 Views IMPRESSION: No radiopaque foreign body is seen. Electronically Signed: Michael Gaxiola MD at 14:49 EST ,
--- NOTE | 2024-06-05 14:50 | PCM.POST.ANE ---
Anesthesia: Postop Eval I Current Vital Signs Temperature: 98.4 F Pulse Rate: 82 Blood Pressure: 134/75 Respiratory Rate: 16 Pulse Ox: 98 Oxygen Delivery Method: Room Air Assessment Airway patent: Yes Spontaneous unlabored respirations: Yes Mental status: Awake and Calm nausea: No Vomiting: No Anesthesia Complication: No Fluid Hydration Crystalloid volume administer (ml): 550 Total IV fluid infused: 550 Progress Note Anesthesia document: Postop Eval 1 completed: Yes
--- NOTE | 2024-06-05 17:24 | POSTOPAN2_ITS ---
Anesthesia Postop Eval I Sum Postop Eval Completion status Anesthesia document: Postop Eval 1 completed: Yes Anesthesia Postop Eval I Summary Anesthesia Postop Eval I Summary: Anesthesia Postop Eval I: Assessment Summary Airway patent Yes 06/05/24 14:51 COMMUTATOR [email or web address].[email or web address] Spontaneous unlabored Yes 06/05/24 14:51 COMMUTATOR TESTER.[email or web address] respirations Mental status Awake,Calm 06/05/24 14:51 COMMUTATOR TESTER.[email or web address] nausea No 06/05/24 14:51 COMMUTATOR TESTER.GDOTT Vomiting No 06/05/24 14:51 COMMUTATOR TESTER.GDOTT Anesthesia Postop Eval I: Fluid Summary Crystalloid volume administer 550 06/05/24 14:51 COMMUTATOR TESTER.GDOTT (ml) Colloids volume administered ( ml) Blood Product volume administered (ml) Total IV fluid infused 550 06/05/24 14:51 COMMUTATOR TESTER.GDOTT Anesthesia Postop Eval I: Summary Notes Anesthesia Complication No 06/05/24 14:51 COMMUTATOR TESTER.GDOTT Anesthesia Complication Comment: Post-operative progress note Anesthesia: Postop Eval II Evaluation Mental status: Awake and Calm Pain Level: 1 nausea: No Vomiting: No Complications Anesthesia Complication: No
--- NOTE | 2024-06-05 17:24 | PCM.POSTANE2 ---
Anesthesia Postop Eval I Sum Postop Eval Completion status Anesthesia document: Postop Eval 1 completed: Yes Anesthesia Postop Eval I Summary Anesthesia Postop Eval I Summary: Anesthesia Postop Eval I: Assessment Summary Airway patent Yes 06/05/24 14:51 PRODUCT SAFETY OFFICER.[email or web address] Spontaneous unlabored Yes 06/05/24 14:51 PRODUCT SAFETY OFFICER.GDOTT respirations Mental status Awake,Calm 06/05/24 14:51 PRODUCT SAFETY OFFICER.GDOTT nausea No 06/05/24 14:51 PRODUCT SAFETY OFFICER.GDOTT Vomiting No 06/05/24 14:51 PRODUCT SAFETY OFFICER.GDOTT Anesthesia Postop Eval I: Fluid Summary Crystalloid volume administer 550 06/05/24 14:51 PRODUCT SAFETY OFFICER.GDOTT (ml) Colloids volume administered ( ml) Blood Product volume administered (ml) Total IV fluid infused 550 06/05/24 14:51 PRODUCT SAFETY OFFICER.GDOTT Anesthesia Postop Eval I: Summary Notes Anesthesia Complication No 06/05/24 14:51 PRODUCT SAFETY OFFICER.GDOTT Anesthesia Complication Comment: Post-operative progress note Anesthesia: Postop Eval II Evaluation Mental status: Awake and Calm Pain Level: 1 nausea: No Vomiting: No Complications Anesthesia Complication: No
== END 2024-06-05 17:03 | disposition home or self-care (01) ==
LOC: SDC 08:56 → AC 08:56
PROVIDERS: PCP Internal Medicine; Referring Provider Surgery Trauma Surgery; Visit Provider Surgery Trauma Surgery
PROC: (CPT 36832; principal; 2024-06-05 10:15)
DX: I12.0 Hypertensive chronic kidney disease with stage 5 chronic kidney disease or end stage renal disease (principal); N18.6 End stage renal disease; J44.9 Chronic obstructive pulmonary disease, unspecified; E78.5 Hyperlipidemia, unspecified; Z87.891 Personal history of nicotine dependence; Z86.16 Personal history of COVID-19; I25.10 Atherosclerotic heart disease of native coronary artery without angina pectoris; Z87.19 Personal history of other diseases of the digestive system; I25.2 Old myocardial infarction; Z90.49 Acquired absence of other specified parts of digestive tract
CPT/HCPCS: 36832; 01844; 36415; 73060; 80048; 85027; J2405

== ENCOUNTER 2024-07-03 11:42 | Emergency (ER) | payer MEDICARE, SELFPAY ==
[2024-07-03 11:43] VITALS: BP 168/68; PULSE 75; RESP 16; TEMP 36.6; O2SAT 98
--- NOTE | 2024-07-03 13:11 | ED.VIS.DYS ---
HPI History of Present Illness Chief Complaint: Shortness of Breath Informant: patient Onset/Context/Timing Onset: Days (4) Context: gradual Timing: Continuous Quality: Positive for Dyspnea on exertion Worsened by: Exertion Relieved by: Rest and Oxygen Associated Symptoms cough and post nasal drip; Negative for rhinorrhea, ear pain, fever, sore throat, chills, sweats, clear sputum, white sputum, yellow sputum or green sputum Chest Pain: Positive for None Narrative Narrative: Patient presents with shortness of breath that has been getting worse over the last 4 days. Patient states it has been getting progressively worse. Patient states her breathing is worse with any exertion. Patient states it is better with rest and with oxygen. Patient is on home oxygen. Patient did go to dialysis today. Patient states that this did not help her breathing. Patient denies any fevers or chills. Patient admits to a cough but denies any sputum production. Patient admits to some postnasal drainage. PE Risk Factors: Negative for Cancer, OCP + Smoking + > 35, Prior DVT or PE, Recent immobilization, Recent surgery or Recent travel [facility] Medical History Post-menopausal History of steroid therapy History of renal dialysis Blackout Gastric reflux Emphysema, unspecified Shortness of breath on exertion Normal Holter exam History of echocardiogram Hypertension Cardiology follow-up encounter History of heart attack History of atrial fibrillation Hemodialysis catheter malfunction Former cigarette smoker GERD (gastroesophageal reflux disease) Hyperlipidemia History of GI bleed Pleural effusion ESRD (end stage renal disease) on dialysis Essential hypertension NSTEMI (non-ST elevated myocardial infarction) EARNEST (acute kidney injury) Hx of ulcer disease Former smoker Atrial fibrillation Elevated blood pressure reading without diagnosis of hypertension Chronic hypoxemic respiratory failure Acute bronchospasm Acute exacerbation of chronic obstructive pulmonary disease Empyema of pleural space Syncope Bleeding ulcer Anemia requiring transfusions Lung nodules Pleurisy On home oxygen therapy Migraines Hyperglycemia Elevated serum creatinine Sinus tachycardia Fever and chills Dyspnea on exertion Acute bronchospasm COPD exacerbation Leukocytosis Community acquired pneumonia Anxiety Benign essential tremor Former tobacco use Pneumonia due to COVID-19 virus Asthma COPD (chronic obstructive pulmonary disease) Tobacco use Tremor Benign essential hypertension Home Medications ?Medication ?Instructions ?Recorded ?Last Taken ?Type albuterol sulfate 90 mcg/actuation 2 puff inhalation Q4H PRN PRN 08/28/15 12/22/23 04:30 History aerosol inhaler (Ventolin HFA) Shortness Of Breath montelukast 10 mg tablet 10 mg PO QHS ALLERGIES 02/25/18 03/12/24 History fluticasone propionate 50 2 spray intranasal QHS ALLERGIES 05/01/21 03/12/24 History mcg/actuation nasal spray,suspension atorvastatin 40 mg tablet 40 mg PO QHS 09/23/23 03/12/24 History ipratropium 0.5 mg-albuterol 3 mg 3 ml inhalation Q6H PRN shortness 09/23/23 03/12/24 History (2.5 mg base)/3 mL nebulization of breath or wheezing soln isosorbide mononitrate 60 mg 60 mg PO DAILY 09/23/23 03/12/24 History tablet,extended release 24 hr nitroglycerin 0.4 mg sublingual 0.4 mg sublingual Q5-15M PRN chest 09/23/23 Unknown History tablet pain polyethylene glycol 3350 17 17 g PO DAILY PRN constipation 09/23/23 Unknown History gram/dose oral powder buspirone 10 mg tablet 10 mg PO BID 09/27/23 03/12/24 History budesonide 160 mcg-glycopyr 9 2 inh inhalation BID 02/22/24 06/05/24 History mcg-formot 4.8 mcg/actuation HFA inhaler (Breztri Aerosphere) acetaminophen 325 mg capsule 650 mg PO Q6H PRN pain 04/19/24 Unknown History (Tylenol) ondansetron 4 mg disintegrating 4 mg PO Q8H PRN nausea and vomiting 04/19/24 Unknown History tablet sucralfate 1 gram tablet 1 g PO BID GI 30 days #60 tabs 05/01/24 Unknown Rx pantoprazole 40 mg tablet,delayed 40 mg PO BID GERD 05/22/24 Unknown History release (Protonix) vitamin B complex-vitamin C-folic 1 tab PO DAILY 05/22/24 Unknown History acid 0.8 mg tablet (Galina-Jose Elias) oxycodone 5 mg tablet 5 mg PO Q8H PRN pain 4 days #12 06/05/24 Unknown Rx tabs Allergy/AdvReac Type Severity Reaction Status Date / Time cephalexin monohydrate (From Allergy Chest Verified 07/03/24 11:44 Keflex) tightness vancomycin AdvReac Mild Itching Verified 07/03/24 11:44 Family History Other Adopted Surgical History Hx of surgical procedure Hx of colonoscopy AVF (arteriovenous fistula) (03/13/24) Hx of colonoscopy History of cardiac catheterization Hx of total shoulder replacement Hx of chest tube placement Hx of esophagogastroduodenoscopy H/O bilateral salpingectomy History of herniorrhaphy Hx of tonsillectomy Hx of cholecystectomy Social History adopted: Yes household members: family housing: house Smoking Status: Former smoker how long ago did patient quit smokin years ago alcohol intake: never substance use type: does not use caffeine: Yes Type: coffee Number of servings: 1 ROS ROS ED Constitutional Constitutional ED: Denies chills or fever(s) Eyes Eyes: Reports blurry vision; Denies change in vision ENT ENT ED: Denies rhinorrhea or sore throat Cardiovascular Cardiovascular: Denies chest pain or palpitations Respiratory/Chest Respiratory/Chest: Reports cough and dyspnea; Denies sputum Gastrointestinal Gastrointestinal: Reports nausea; Denies vomiting Genitourinary Genitourinary ED: Reports urinary frequency; Denies dysuria or hematuria Musculoskeletal Musculoskeletal: Reports back pain; Denies neck pain Integumentary Denies abscess or rash Neurologic Neurologic: Denies headache(s) or weakness Allergic/Immunologic Allergic/Immunologic ED: Denies mouth swelling or urticaria EXAM Physical Exam Const Vital Signs: 07/03/24 11:43 07/03/24 12:53 07/03/24 13:43 Temperature 98 F Temperature Source Temporal Pulse Rate 75 87 Respiratory Rate 16 20 H Respiratory Effort Short of Breath Respiratory Depth Normal Respiratory Pattern Tachypnea Blood Pressure 168/68 H 153/73 H Blood Pressure Mean 101 99 Pulse Ox 98 97 Oxygen Delivery Method Room Air 07/03/24 13:47 07/03/24 15:00 Temperature Temperature Source Pulse Rate 70 84 Respiratory Rate 16 18 Respiratory Effort Respiratory Depth Respiratory Pattern Blood Pressure 150/72 H Blood Pressure Mean 98 Pulse Ox 97 Oxygen Delivery Method Positive well nourished and well developed General Appearance ED: well developed and NAD HEENT Reports moist mucous membranes atraumatic Neck supple and no JVD Resp normal respiratory effort Auscultation: diminished lung sounds diffuse Cardio regular rate and regular rhythm GI non-tender and non-distended Palpation: soft Neuro oriented x3, CN's II-XII intact bilaterally and no sensory deficits noted [place] Coma Scale: document GCS findings Spontaneous Obeys Commands Sensorium / Orientation: alert Speech: speech normal Motor Exam: strength 5/5 throughout Psych mental status grossly normal MDM MDM MDM Narrative Medical decision making narrative: Differential diagnosis includes pneumonia, congestive heart failure, cardiac dysrhythmia, cardiac ischemia, viral illness, electrolyte abnormality, and coagulopathy. Chest x-ray will be obtained to assess for pneumonia and congestive heart failure. COVID-19, influenza, and RSV PCR will be obtained to assess for viral illness. CBC will be obtained to assess for leukocytosis and anemia. Basic metabolic profile will be obtained to assess for electrolyte abnormality and renal function. BNP will be obtained to assess for congestive heart failure. PT with INR and PTT will be obtained to assess for coagulopathy. High-sensitivity troponin will be obtained to assess for cardiac ischemia. Lab Data Attestation: I reviewed the patient's lab results. Lab results narrative: CBC was reviewed. There is a mild anemia with hemoglobin of 11.3 hematocrit 35.4. Platelets were normal. White blood cell count was normal. Basic metabolic profile was reviewed. Potassium was slightly low at 3.2. Creatinine was 1.96. This was improved from previous results. BNP was reviewed and was mildly elevated at 158.9. PT was INR and PTT were reviewed and were within normal limits. High-sensitivity troponin was reviewed and was normal at 19. Urinalysis was reviewed. There is no evidence of urinary tract infection or hematuria. Labs: Laboratory Results - last 24 hr 07/03/24 07/03/24 13:35 15:40 WBC 9.2 RBC 3.75 L Hgb 11.3 L Hct 35.4 L MCV 94.4 MCH 30.1 MCHC 31.9 L RDW Std Deviation 45.1 H RDW Coeff of Laly 13.2 Plt Count 219 MPV 10.4 Immature Gran % (Auto) 0.200 Neut % (Auto) 70.5 H Lymph % (Auto) 14.9 L [place] % (Auto) 10.6 H Eos % (Auto) 3.3 Baso % (Auto) 0.5 Absolute Neuts (auto) 6.5 Absolute Lymphs (auto) 1.36 Nucleated RBC % 0 PT 13.1 INR 1.0 APTT 25.6 Sodium 137 Potassium 3.2 L Chloride 98 Carbon Dioxide 33.0 H Anion Gap 6 BUN 16 Creatinine 1.96 H Est GFR (MDRD) Af Amer 33 L Est GFR (MDRD) Non-Af 27 L BUN/Creatinine Ratio 8.2 L Glucose 96 Calcium 8.5 Troponin I High Sens 19 B-Natriuretic Peptide 158.9 H Urine Color Yellow Urine Clarity Clear Urine pH 7.0 Ur Specific [place] 1.005 Urine Protein 100 H Urine Glucose (UA) Normal Urine Ketones Negative Urine Occult Blood 150 H Urine Nitrite Negative Urine Bilirubin Negative Urine Urobilinogen Normal Ur Leukocyte Esterase Negative Urine RBC 0-5 SEEN Urine WBC 0-5 SEEN Ur Squamous Epith Cells 0-5 SEEN Urine Bacteria 1+ Urine Mucus 0 SEEN Radiography Chest X-Ray - ED: 2 View, Read by ED Physician, Read by Radiologist, Cardiomegaly and CHF Diagnostic Testing: Clinical Impression(s) from Imaging Studies Chest X-Ray 07/03/24 14:10 IMPRESSION: Chronic pulmonary vascular prominence likely due to CHF or volume overload. Electronically Signed: Jean-Pierre Huston MD at 14:46 EST Reading Location ID and State: [facility] / [place] , Service support , EKG Initial EKG: Attestation: I personally reviewed and interpreted this EKG as follows: Interpretation: Sinus Rhythm (89) and No Acute Injury Pattern Comments: EKG was obtained. On my independent interpretation, it showed a normal sinus rhythm with a rate of 89. OR interval, QRS interval, and QTc intervals were all normal. [place] was normal. There are no acute ST or T wave changes. Prior EKG tracings: available for review Prior: Unchanged (03/19/2024) Treatment and Re-Evaluation :: Patient was given a DuoNeb aerosol here. Patient is feeling better on reevaluation. Patient was advised of her findings. Patient was able to ambulate here in the emergency department on her normal oxygen and maintain oxygen saturation at 96% and above. Patient felt better and wants to go home. Patient was instructed to follow-up with her primary care physician and digital advertising analyst in 5 to 7 days. Patient was instructed to return if worse in any way. Patient and spouse understood and were agreeable with the plan. All questions were answered. Discharge Plan Triage Chief Complaint: Shortness of Breath ED Provider: Livan Murry Dx/Rx/DC Orders Clinical Impression: Dyspnea on exertion, ESRD (end stage renal disease) on dialysis Instructions: ED Dyspnea Prescriptions: No Action nitroglycerin 0.4 mg tablet, sublingual 0.4 mg sublingual Q5-15M PRN (Reason: chest pain) Rx Instructions: do not exceed 3 doses per episode polyethylene glycol 3350 17 gram/dose powder 17 g PO DAILY PRN (Reason: constipation) isosorbide mononitrate 60 mg tablet extended release 24 hr 60 mg PO DAILY ipratropium-albuterol 0.5 mg-3 mg(2.5 mg base)/3 mL solution for nebulization 3 ml inhalation Q6H PRN (Reason: shortness of breath or wheezing) atorvastatin 40 mg tablet 40 mg PO QHS buspirone 10 mg tablet 10 mg PO BID sucralfate 1 gram tablet 1 g PO BID 30 Days Qty: 60 1RF acetaminophen [Tylenol] 325 mg capsule 650 mg PO Q6H PRN (Reason: pain) ondansetron 4 mg tablet,disintegrating 4 mg PO Q8H PRN (Reason: nausea and vomiting) albuterol sulfate [Ventolin HFA] 1 INHALER inhaler 2 puff inhalation Q4H PRN PRN (Reason: Shortness Of Breath) Patient Comments: shortness of breath montelukast 10 MG tablet 10 mg PO QHS fluticasone propionate 50 mcg/actuation spray,suspension 2 spray INTRANASAL QHS Patient Comments: Use 1 Avinger in each nostril once daily. Breztri Aerosphere 160-9-4.8 mcg/actuation HFA aerosol inhaler 2 inh inhalation BID pantoprazole [Protonix] 40 mg tablet,delayed release (DR/EC) 40 mg PO BID Rx Instructions: 40 mg twice daily for 3 months and then once daily. Galina-Jose Elias 0.8 mg tablet 1 tab PO DAILY oxycodone 5 mg tablet 5 mg PO Q8H PRN (Reason: pain) 4 Days Qty: 12 0RF Primary Care Provider: Julio Draper Referrals: Julio Draper MD [Primary Care Provider] - 5-7 Days Print Language: Syriac Disposition Disposition: Home, Self Care
--- NOTE | 2024-07-03 13:15 | EKG12_ITS ---
Test Reason : SOB Blood Pressure : */* mmHG Vent. Rate : 89 BPM Atrial Rate : 89 BPM P-R Int : 200 ms QRS Dur : 86 ms QT Int : 384 ms P-R-T Axes : 60 76 64 degrees QTcB Int : 467 ms Normal sinus rhythm Possible Left atrial enlargement Septal infarct , age undetermined Abnormal ECG Confirmed by ROB DORANTES, LUCRETIA ([id number]), market editor EDGARD HURTADO ([id number]) on 07/05/2024 6:16:47 AM Referred By: Confirmed By: LUCRETIA RIVAS MD
[2024-07-03] MEDS: Ipratropium/Albuterol Sulfate 3 ML AMPUL.NEB INHALATION (13:23)
[2024-07-03 13:43] VITALS: BP 153/73; PULSE 87; RESP 20; O2SAT 97
[2024-07-03 13:47] VITALS: PULSE 70; RESP 16
[2024-07-03 13:49] LABS: Absolute Lymphocyte Count 1.36 X10^3/uL (0.83-4.51); Absolute Neutrophil Count 6.5 X10^3/uL (2.0-7.7); Basophil# 0.05 X10^3/uL; Basophil% 0.5 % (0-1); Eosinophils% 3.3 % (0-5); Hematocrit 35.4 % (37-47); Hemoglobin 11.3 g/dL (12.0-15.0); Lymphocyte # 1.36 X10^3/ul (0.83-4.51); Lymphocyte % 14.9 % (19-41); Mean Corp Hgb Conc 31.9 g/dL (32-36); Mean Corpuscular Hgb 30.1 pg (27.0-32.0); Mean Corpuscular Volume 94.4 fL (81-99); Mean Platelet Vol. 10.4 fl (6.2-12.0); Monocyte# 0.97 X10^3/uL; Monocyte% 10.6 % (0-10); NRBC Flagged by Analyzer 0 % (0-5); Neutrophil # 6.45 X10^3/uL (2.7-7.7); Neutrophil % 70.5 % (47-70); Platelet Count 219 K/mm3 (150-450); RBC Distribution Width CV 13.2 % (11.6-14.6); RBC Distribution Width SD 45.1 fl (35.1-43.9); Red Blood Count 3.75 M/mm3 (4.2-5.4); White Blood Count 9.2 K/mm3 (4.4-11.0)
[2024-07-03 14:01] LABS: Prothrombin Time (Protime)PT. 13.1 SECONDS (11.7-14.9)
[2024-07-03 14:02] LABS: Partial Thromboplast Time 25.6 Seconds (24.1-36.2)
[2024-07-03 14:08] LABS: Anion Gap 6 (5-15); BUN 16 mg/dL (7-18); BUN/Creat Ratio 8.2 RATIO (10-20); Calcium,Total 8.5 mg/dL (8.5-10.1); Chloride 98 mmol/L (98-107); Creatinine, Serum 1.96 mg/dL (0.55-1.02); EST Glomerular Filtration Rate 27 mL/min (>60); Est Glom Filt Rate - Afr Amer 33 mL/min (>60); Glucose 96 mg/dL (74-106); Potassium 3.2 mmol/L (3.5-5.1); Sodium Level 137 mmol/L (136-145); Troponin-I HS 19 pg/mL (3.0-54.0)
--- NOTE | 2024-07-03 14:10 | RAD_ITS ---
STUDY: X-RAY CHEST REASON FOR EXAM: Female, 69 years old. Dyspnea TECHNIQUE: PA and lateral views of the chest. COMPARISON: March 19, 2024 FINDINGS: 1. No visualized new opacity or consolidation 2. Chronic COPD interstitial lung disease 3. Stable right central venous catheter 4. Normal heart size 5. Stable mediastinum and osseous structures. 6. Chronic pulmonary vascular prominence likely due to CHF or volume overload. There is no demonstrated abnormality of the visualized soft tissue structures of the upper abdomen. RAD/Chest PA and Lateral IMPRESSION: Chronic pulmonary vascular prominence likely due to CHF or volume overload. Electronically Signed: Jean-Pierre Huston MD at 14:46 EST ,
[2024-07-03 14:29] LABS: BNP,B-Type NATRIURETIC PEPTIDE 158.9 pg/mL (0-100)
[2024-07-03 15:00] VITALS: BP 150/72; PULSE 84; RESP 18; O2SAT 97
[2024-07-03 15:48] LABS: Mucous, Urine 0 SEEN /hpf (<or=2+)
[2024-07-03 15:51] LABS: Color, Urine Yellow (Yellow); Glucose, Dipstick Normal (Normal); Ketone-Dipstick Negative (Negative); Leukocyte Esterase-Dipstick Negative /ul (Negative); Nitrite-Dipstick Negative (Negative); Occult Blood-Urine 150 /ul (Negative); Protein-Dipstick 100 mg/dl (Negative); Specific Gravity, Urine 1.005 (1.002-1.030); Urine Bilirubin Dipstick Negative (Negative); Urine Clarity Clear (Clear); Urine Urobilinogen Normal (Normal)
[2024-07-03 16:07] LABS: Bacteria 1+ /hpf (None Seen); Red Blood Cells-Urine 0-5 SEEN /hpf (0-5); Squamous Epithelial Cells - UA 0-5 SEEN /hpf (5-10); White Blood Cells 0-5 SEEN /hpf (0-5)
[2024-07-03 16:36] VITALS: O2SAT 96
[2024-07-03 16:50] VITALS: BP 166/76; PULSE 86; RESP 15; TEMP 36.6; O2SAT 95
== END 2024-07-03 16:51 | disposition home or self-care (01) ==
PROVIDERS: Emergency Provider Emergency Medicine; PCP Internal Medicine; Visit Provider Emergency Medicine
DX: R06.02 Shortness of breath (principal); I12.0 Hypertensive chronic kidney disease with stage 5 chronic kidney disease or end stage renal disease; N18.6 End stage renal disease; J44.9 Chronic obstructive pulmonary disease, unspecified; I48.91 Unspecified atrial fibrillation; Z87.891 Personal history of nicotine dependence; Z99.2 Dependence on renal dialysis; E78.5 Hyperlipidemia, unspecified; Z99.81 Dependence on supplemental oxygen; I25.2 Old myocardial infarction; Z79.51 Long term (current) use of inhaled steroids; Z79.899 Other long term (current) drug therapy; F41.9 Anxiety disorder, unspecified; K21.9 Gastro-esophageal reflux disease without esophagitis; Z96.619 Presence of unspecified artificial shoulder joint; Z90.49 Acquired absence of other specified parts of digestive tract
CPT/HCPCS: 71046; 80048; 81001; 83880; 84484; 85025; 85610; 85730; 87631; 93005; 94640; 99284; A4216

== ENCOUNTER 2024-07-08 02:05 | Inpatient (IN) | payer MEDICARE, OTHER, SELFPAY ==
[2024-07-08] VITALS (24 sets, daily range): BP systolic 116–167; BP diastolic 58–83; PULSE 85–110; RESP 15–36; TEMP 36.7–37.5; O2SAT 90–99; BMI 25.4; BMI 24.1
--- NOTE | 2024-07-08 02:38 | CT_ITS ---
INDICATION: CHF vs pneumonia EXAMINATION: - CT Chest W/O Contrast Injection A radiation dose optimization technique was used for this scan. RADIATION DOSAGE (If Supplied By Facility): CTDIvol/DLP = ( 12.90 ) / ( 496.40 ) mGy/mGycm COMPARISON: 03/07/2015 chest radiograph.. FINDINGS: Noncontrast serial CT axial images through the chest with coronal and sagittal reformatted series. MEDIASTINUM: Dense coronary artery atherosclerotic calcifications. Large bore right central venous catheter tip terminates within the cavoatrial junction. Ascending aorta measuring up to 43 mm in diameter. LUNG PARENCHYMA: Scattered clustered groundglass pulmonary nodules right upper lobe predominant in a tree-in-bud distribution suggesting atypical infectious etiology. Bilateral posterior dependent atelectasis versus scarring. Upper lobe predominant emphysematous lung changes. Dominant 8 mm lateral right upper lobe pulmonary nodule on image 27 of series 4, new from 2014. PLEURA: Trace right pleural effusion. No pneumothorax. CHEST WALL: Stable left breast asymmetric soft tissue density from 2015. BONES: Serpiginous thoracic scoliosis. Right shoulder arthroplasty, only partially imaged, although no obvious hardware complication. UPPER ABDOMEN: Unremarkable. CT/Chest without Contrast IMPRESSION: Scattered clustered groundglass pulmonary nodules right upper lobe predominant in a tree-in-bud distribution suggesting atypical infectious etiology. Dominant 8 mm lateral right upper lobe pulmonary nodule on image 27 of series 4, new from 2015. Trace right pleural effusion. Recommend follow-up evaluation as neoplastic process is not excluded. Ascending aorta measuring up to 43 mm in diameter. Electronically Signed: Vern Bone MD at 4:58 EST ,
--- NOTE | 2024-07-08 02:38 | EKG12_ITS ---
Test Reason : SOB Blood Pressure : */* mmHG Vent. Rate : 97 BPM Atrial Rate : 97 BPM P-R Int : 190 ms QRS Dur : 88 ms QT Int : 356 ms P-R-T Axes : 57 78 31 degrees QTcB Int : 452 ms Normal sinus rhythm Possible Left atrial enlargement Nonspecific ST abnormality Abnormal ECG Confirmed by ROB DORANTES, LUCRETIA ([id number]), editor book EDGARD HURTADO ([id number]) on 07/09/2024 7:58:23 AM Referred By: Confirmed By: LUCRETIA RIVAS MD
[2024-07-08 02:49] LABS: Absolute Lymphocyte Count 0.89 X10^3/uL (0.83-4.51); Absolute Neutrophil Count 7.2 X10^3/uL (2.0-7.7); Basophil# 0.06 X10^3/uL; Basophil% 0.6 % (0-1); Eosinophil# 0.58 X10^3/uL; Hematocrit 32.6 % (37-47); Hemoglobin 10.7 g/dL (12.0-15.0); Lymphocyte # 0.89 X10^3/ul (0.83-4.51); Lymphocyte % 9.2 % (19-41); Mean Corp Hgb Conc 32.8 g/dL (32-36); Mean Corpuscular Hgb 30.7 pg (27.0-32.0); Mean Corpuscular Volume 93.7 fL (81-99); Mean Platelet Vol. 10.2 fl (6.2-12.0); Monocyte# 0.92 X10^3/uL; Monocyte% 9.5 % (0-10); NRBC Flagged by Analyzer 0 % (0-5); Neutrophil # 7.18 X10^3/uL (2.7-7.7); Neutrophil % 74.4 % (47-70); Platelet Count 207 K/mm3 (150-450); RBC Distribution Width SD 44.7 fl (35.1-43.9); Red Blood Count 3.48 M/mm3 (4.2-5.4); White Blood Count 9.7 K/mm3 (4.4-11.0)
[2024-07-08 03:02] LABS: Anion Gap 8 (5-15); BUN 29 mg/dL (7-18); BUN/Creat Ratio 8.3 RATIO (10-20); Calcium,Total 9.3 mg/dL (8.5-10.1); Chloride 101 mmol/L (98-107); Creatinine, Serum 3.51 mg/dL (0.55-1.02); EST Glomerular Filtration Rate 14 mL/min (>60); Est Glom Filt Rate - Afr Amer 17 mL/min (>60); Estimated Creatinine Clearance 14.45 ml/min; Glucose 114 mg/dL (74-106); Magnesium 1.9 mg/dL (1.6-2.6); Phosphorus 3.6 mg/dL (2.5-4.9); Potassium 3.2 mmol/L (3.5-5.1); Sodium Level 138 mmol/L (136-145)
[2024-07-08 03:10] LABS: BNP,B-Type NATRIURETIC PEPTIDE 65.2 pg/mL (0-100)
[2024-07-08] MEDS: Furosemide 40 MG/4 ML Vial IV (03:15)
[2024-07-08] MEDS: MethylPREDNISolone 125 MG/2 ML Vial IV (03:15)
[2024-07-08] MEDS: Acetaminophen 500 MG Tablet 1000 MG PO (04:29)
--- NOTE | 2024-07-08 06:02 | EX.ED.DYSGE1 ---
HPI History of Present Illness Chief Complaint: Shortness of Breath Informant: patient, spouse/S.O. and EMS Narrative Narrative: Patient is a 69-year-old female with past medical history of COPD who wears 3 L nasal cannula oxygen 24/01. She also has a history of end-stage renal disease and is on dialysis. She was seen in the ER on July 03 secondary to shortness of breath. Workup at that time showed changes concerning for volume overload. However at the end of the workup she was doing better and could ambulate without hypoxia or dizziness and was discharged home. Patient states that in the last 1 to 2 days she has developed a fever up to 101 at home with cough congestion and phlegm production. She states she has been wearing her oxygen as directed and using her home breathing treatments but feels there is not been significant improvement to her breathing. Therefore with worsening symptoms and now the presence of fever she is concern for infection and comes in for evaluation [facility] Medical History Post-menopausal History of steroid therapy History of renal dialysis Blackout Gastric reflux Emphysema, unspecified Shortness of breath on exertion Normal Holter exam History of echocardiogram Hypertension Cardiology follow-up encounter History of heart attack History of atrial fibrillation Hemodialysis catheter malfunction Former cigarette smoker GERD (gastroesophageal reflux disease) Hyperlipidemia History of GI bleed Pleural effusion ESRD (end stage renal disease) on dialysis Essential hypertension NSTEMI (non-ST elevated myocardial infarction) EARNEST (acute kidney injury) Hx of ulcer disease Former smoker Atrial fibrillation Elevated blood pressure reading without diagnosis of hypertension Chronic hypoxemic respiratory failure Acute bronchospasm Acute exacerbation of chronic obstructive pulmonary disease Empyema of pleural space Syncope Bleeding ulcer Anemia requiring transfusions Lung nodules Pleurisy On home oxygen therapy Migraines Hyperglycemia Elevated serum creatinine Sinus tachycardia Fever and chills Dyspnea on exertion Acute bronchospasm COPD exacerbation Leukocytosis Community acquired pneumonia Anxiety Benign essential tremor Former tobacco use Pneumonia due to COVID-19 virus Asthma COPD (chronic obstructive pulmonary disease) Tobacco use Tremor Benign essential hypertension Home Medications ?Medication ?Instructions ?Recorded ?Last Taken ?Type albuterol sulfate 90 mcg/actuation 2 puff inhalation Q4H PRN PRN 08/28/15 12/22/23 04:30 History aerosol inhaler (Ventolin HFA) Shortness Of Breath montelukast 10 mg tablet 10 mg PO QHS ALLERGIES 02/25/18 03/12/24 History fluticasone propionate 50 2 spray intranasal QHS ALLERGIES 05/01/21 03/12/24 History mcg/actuation nasal spray,suspension atorvastatin 40 mg tablet 40 mg PO QHS 09/23/23 03/12/24 History ipratropium 0.5 mg-albuterol 3 mg 3 ml inhalation Q6H PRN shortness 09/23/23 03/12/24 History (2.5 mg base)/3 mL nebulization of breath or wheezing soln isosorbide mononitrate 60 mg 60 mg PO DAILY 09/23/23 03/12/24 History tablet,extended release 24 hr nitroglycerin 0.4 mg sublingual 0.4 mg sublingual Q5-15M PRN chest 09/23/23 Unknown History tablet pain polyethylene glycol 3350 17 17 g PO DAILY PRN constipation 09/23/23 Unknown History gram/dose oral powder buspirone 10 mg tablet 10 mg PO BID 09/27/23 03/12/24 History budesonide 160 mcg-glycopyr 9 2 inh inhalation BID 02/22/24 06/05/24 History mcg-formot 4.8 mcg/actuation HFA inhaler (Breztri Aerosphere) acetaminophen 325 mg capsule 650 mg PO Q6H PRN pain 04/19/24 Unknown History (Tylenol) ondansetron 4 mg disintegrating 4 mg PO Q8H PRN nausea and vomiting 04/19/24 Unknown History tablet pantoprazole 40 mg tablet,delayed 40 mg PO BID GERD 05/22/24 Unknown History release (Protonix) vitamin B complex-vitamin C-folic 1 tab PO DAILY 05/22/24 Unknown History acid 0.8 mg tablet (Galina-Jose Elias) oxycodone 5 mg tablet 5 mg PO Q8H PRN pain 4 days #12 06/05/24 Unknown Rx tabs sucralfate 1 gram tablet 1 g PO DAILY GI 07/08/24 Unknown History Allergy/AdvReac Type Severity Reaction Status Date / Time cephalexin monohydrate (From Allergy Chest Verified 07/08/24 02:09 Keflex) tightness vancomycin AdvReac Mild Itching Verified 07/08/24 02:09 Family History Other Adopted Surgical History Hx of surgical procedure Hx of colonoscopy AVF (arteriovenous fistula) (03/13/24) Hx of colonoscopy History of cardiac catheterization Hx of total shoulder replacement Hx of chest tube placement Hx of esophagogastroduodenoscopy H/O bilateral salpingectomy History of herniorrhaphy Hx of tonsillectomy Hx of cholecystectomy Social History adopted: Yes household members: family housing: house Smoking Status: Former smoker how long ago did patient quit smokin years ago alcohol intake: never substance use type: does not use caffeine: Yes Type: coffee Number of servings: 1 ROS ROS ED Constitutional Constitutional ED: Reports fever(s) Eyes Eyes: Denies change in vision ENT ENT ED: Reports rhinorrhea Cardiovascular Cardiovascular: Denies chest pain Respiratory/Chest Respiratory/Chest: Reports cough and dyspnea Gastrointestinal Gastrointestinal: Denies abdominal pain, nausea or vomiting Genitourinary Genitourinary ED: Denies dysuria Musculoskeletal Musculoskeletal: Reports myalgias Integumentary Denies rash Neurologic Neurologic: Reports headache(s) Hematologic/Lymphatic Hematologic/Lymphatic: Reports easy bleeding and easy bruising Allergic/Immunologic Allergic/Immunologic ED: Denies mouth swelling or tongue swelling EXAM Physical Exam Const Vital Signs: 07/08/24 02:05 07/08/24 02:05 07/08/24 02:15 Temperature 99.5 F H 99.5 F H Temperature Source Oral Oral Pulse Rate 100 100 Respiratory Rate 18 24 H Respiratory Effort Short of Breath Blood Pressure 167/77 H 138/83 H Blood Pressure Mean 107 101 Pulse Ox 93 93 Oxygen Delivery Method Nasal Cannula Nasal Cannula Nasal Cannula Oxygen Flow Rate (L/min) 3 3 3 07/08/24 03:17 07/08/24 03:21 07/08/24 03:33 Temperature 98.5 F Temperature Source Oral Pulse Rate 94 95 Respiratory Rate 16 15 Respiratory Effort Blood Pressure 149/68 H 149/68 H Blood Pressure Mean 95 95 Pulse Ox 95 Oxygen Delivery Method Nasal Cannula Oxygen Flow Rate (L/min) 3 07/08/24 03:45 07/08/24 04:00 07/08/24 04:00 Temperature 98.2 F Temperature Source Oral Pulse Rate 95 85 Respiratory Rate 18 16 Respiratory Effort Blood Pressure 151/73 H 116/58 L 116/58 L Blood Pressure Mean 97 77 77 Pulse Ox 95 Oxygen Delivery Method Room Air Oxygen Flow Rate (L/min) 07/08/24 04:01 07/08/24 04:15 07/08/24 04:30 Temperature Temperature Source Pulse Rate 100 96 96 Respiratory Rate 34 H 20 H 22 H Respiratory Effort Blood Pressure Blood Pressure Mean Pulse Ox Oxygen Delivery Method Oxygen Flow Rate (L/min) 07/08/24 04:45 07/08/24 05:00 07/08/24 05:00 Temperature 98.9 F Temperature Source Oral Pulse Rate 98 92 94 Respiratory Rate 18 16 23 H Respiratory Effort Blood Pressure 149/72 H 150/71 H Blood Pressure Mean 97 93 Pulse Ox 99 Oxygen Delivery Method Nasal Cannula Oxygen Flow Rate (L/min) 3 07/08/24 05:15 07/08/24 05:30 07/08/24 05:45 Temperature Temperature Source Pulse Rate 99 110 H 96 Respiratory Rate 28 H 36 H 18 Respiratory Effort Blood Pressure 149/76 H Blood Pressure Mean 95 Pulse Ox Oxygen Delivery Method Oxygen Flow Rate (L/min) 07/08/24 05:58 Temperature 98.9 F Temperature Source Pulse Rate 92 Respiratory Rate 16 Respiratory Effort Blood Pressure 149/76 H Blood Pressure Mean 100 Pulse Ox 99 Oxygen Delivery Method Oxygen Flow Rate (L/min) Positive well nourished and well developed General Appearance ED: well developed and pallor HEENT HEENT Narrative: Nasal mucosa is hyperemic and boggy There is cobblestoning the posterior pharynx consistent with sinus drainage without airway edema or compromise No secondary findings to suggest infection Eyes PERRL and EOMs intact bilaterally General Eye ED: Negative for scleral icterus Neck supple and no JVD Neck Narrative: No nuchal rigidity or meningeal signs Chest Wall Chest Narrative: There is a dialysis catheter in place in the right anterior chest wall without surrounding secondary soft tissue changes to suggest infection No crepitance or subcutaneous emphysema noted Resp Resp Narrative: Breath sounds are diminished throughout and there is diffuse expiratory wheeze noted. Faint rhonchi are present in the lower lobes bilaterally. No nasal flaring retractions tachypnea or accessory muscle use while at rest. Cardio regular rate and regular rhythm GI normal to inspection, nondistended, normoactive bowel sounds, non-tender, non-distended and no masses Auscultation: normoactive bowel sounds Palpation: soft Extremity Extremity Narrative: Patient has a fistula in place in the left upper arm with palpable thrill and good bruit Negative Homans' sign bilaterally No asymmetric edema no pitting edema Neuro oriented x3, CN's II-XII intact bilaterally and no sensory deficits noted Sensorium / Orientation: alert Motor Exam: strength 5/5 throughout Psych mental status grossly normal Skin no rashes or lesions noted General Skin Exam: pallor; Negative for jaundice MDM MDM MDM Narrative Medical decision making narrative: Patient arrived to the ER with stable vitals and was satting in the mid 90s on her normal 3 L. Her previous chart was reviewed and there was question of volume overload on the last x-ray. Her physical exam does not suggest this as there is no obvious JVD significant lower extremity swelling or crackles present on exam. Patient states she still makes urine and as the last workup suggested volume overload even though there are no obvious findings on exam I did like to give her 1 dose of Lasix. However today she reports fever with congestion cough and sputum production and this is more concerning for infectious process such as pneumonia influenza RSV or COVID. As patient had wheezing and squad gave her breathing treatment prior to arrival I elected to only add steroids at this time. As she had a recent chest x-ray did elect to improve the image with a noncontrast CT scan. CT scan showed tree-in-bud appearance concerning for atypical pneumonia but this would correlate with her diagnosis of RSV and as this is a viral infection I do not feel there is need for antibiotics. The patient was ambulated and her pulse ox went from 95 to 91% and her heart rate increased from 95-115. These changes are not clinically significant but the patient did report lightheadedness/dizziness and was fell over and had to be steady by nursing staff and her . The patient is very early in the disease process for RSV as he is only had symptoms for 1 to 2 days. Most likely her symptoms will worsen before they improve and as she is already requiring supplemental oxygen and cannot ambulate without concern for falling I do not feel she is safe for home. I discussed the case with the hospitalist who agrees with the plan of care and therefore should be admitted to the hospital for further evaluation and treatment History & Record Review Discussion w/independent historian: Patient and Significant other Lab Data Attestation: I reviewed the patient's lab results. Labs: Laboratory Results - last 24 hr 07/08/24 02:18 WBC 9.7 RBC 3.48 L Hgb 10.7 L Hct 32.6 L MCV 93.7 MCH 30.7 MCHC 32.8 RDW Std Deviation 44.7 H RDW Coeff of Laly 13.0 Plt Count 207 MPV 10.2 Immature Gran % (Auto) 0.300 Neut % (Auto) 74.4 H Lymph % (Auto) 9.2 L Rolette % (Auto) 9.5 Eos % (Auto) 6.0 H Baso % (Auto) 0.6 Absolute Neuts (auto) 7.2 Absolute Lymphs (auto) 0.89 Nucleated RBC % 0 Sodium 138 Potassium 3.2 L Chloride 101 Carbon Dioxide 29.0 Anion Gap 8 BUN 29 H Creatinine 3.51 H Estim Creat Clear Calc 14.45 Est GFR (MDRD) Af Amer 17 L Est GFR (MDRD) Non-Af 14 L BUN/Creatinine Ratio 8.3 L Glucose 114 H Calcium 9.3 Phosphorus 3.6 Magnesium 1.9 B-Natriuretic Peptide 65.2 Radiography Diagnostic Testing: Clinical Impression(s) from Imaging Studies Chest CT 07/08/24 02:38 IMPRESSION: Scattered clustered groundglass pulmonary nodules right upper lobe predominant in a tree-in-bud distribution suggesting atypical infectious etiology. Dominant 8 mm lateral right upper lobe pulmonary nodule on image 27 of series 4, new from 2014. Trace right pleural effusion. Recommend follow-up evaluation as neoplastic process is not excluded. Ascending aorta measuring up to 43 mm in diameter. Electronically Signed: Vern Bone MD at 4:58 EST , Management Discussion w/another healthcare provider: Hospitalist Discharge Plan Triage Chief Complaint: Shortness of Breath ED Provider: Hoang Foster Dx/Rx/DC Orders Clinical Impression: Respiratory syncytial virus bronchitis, Essential hypertension, ESRD (end stage renal disease) on dialysis, COPD exacerbation Prescriptions: No Action nitroglycerin 0.4 mg tablet, sublingual 0.4 mg sublingual Q5-15M PRN (Reason: chest pain) Rx Instructions: do not exceed 3 doses per episode polyethylene glycol 3350 17 gram/dose powder 17 g PO DAILY PRN (Reason: constipation) isosorbide mononitrate 60 mg tablet extended release 24 hr 60 mg PO DAILY ipratropium-albuterol 0.5 mg-3 mg(2.5 mg base)/3 mL solution for nebulization 3 ml inhalation Q6H PRN (Reason: shortness of breath or wheezing) atorvastatin 40 mg tablet 40 mg PO QHS buspirone 10 mg tablet 10 mg PO BID acetaminophen [Tylenol] 325 mg capsule 650 mg PO Q6H PRN (Reason: pain) ondansetron 4 mg tablet,disintegrating 4 mg PO Q8H PRN (Reason: nausea and vomiting) albuterol sulfate [Ventolin HFA] 1 INHALER inhaler 2 puff inhalation Q4H PRN PRN (Reason: Shortness Of Breath) Patient Comments: shortness of breath montelukast 10 MG tablet 10 mg PO QHS fluticasone propionate 50 mcg/actuation spray,suspension 2 spray INTRANASAL QHS Patient Comments: Use 1 [place] in each nostril once daily. Breztri Aerosphere 160-9-4.8 mcg/actuation HFA aerosol inhaler 2 inh inhalation BID pantoprazole [Protonix] 40 mg tablet,delayed release (DR/EC) 40 mg PO BID Rx Instructions: 40 mg twice daily for 3 months and then once daily. Galina-Jose Elias 0.8 mg tablet 1 tab PO DAILY oxycodone 5 mg tablet 5 mg PO Q8H PRN (Reason: pain) 4 Days Qty: 12 0RF sucralfate 1 gram tablet 1 g PO DAILY Primary Care Provider: Julio Draper Referrals: Julio Draper MD [Primary Care Provider] - Print Language: Guyanese Disposition Disposition: Acute Care [facility]
--- NOTE | 2024-07-08 06:06 | HP.PCM.HOS_ITS ---
HPI - General General Date of Admission: 07/08/24 Date of Service: 07/08/24 Chief Complaint: Shortness of breath HPI Narrative SNEHA CARDENAS, is a 69 F who presented to the emergency department at [facility] on 07/08/2023 with a chief complaint of shortness of breath which started predominantly with exertion. She initially presented to the emergency department on 07/03/2020 for and was complaining of shortness of breath and had been progressively worsening for about 4 days prior to presentation. It was with exertion at that time and better with rest and her baseline oxygen. She does wear oxygen at 3 L continuously. She does have end- stage renal disease and is compliant with dialysis but noted that dialysis did not help her breathing. She denied fevers and chills at that time and admitted to a cough but no sputum production. She did complain of some postnasal drainage. She was treated in the emergency department and felt that her breathing got a bit better and was able to ambulate on her baseline oxygen and wanted to go home. At that time she was instructed to come back if she got any worse. She noted at this presentation that she started to get worse and felt that this evening she was unable to control her shortness of breath so that is why she represented to the emergency department. Patient states she is still coughing but now coughing up greenish to yellowish sputum. She has now had some chills and a low-grade fever at home of 100.2 and that was while she was taking Tylenol. Vital signs on presentation showed temperature of 98.9, heart rate 92, blood pressure 149/76, respiratory rate 24 and oxygen saturation was 93 to 95% on room air. With exertion she dropped to 90 to 91%. A normal white count with a mild left shift at 74.4% and a lymphopenia as well as an eosinophilia. Upon review her eosinophil level tends to fluctuate. Her chemistry panel showed mild hypokalemia with a potassium of 3.2. Her BUN was 29 and serum creatinine was 3.51-again she is HD dependent at baseline. Magnesium and phosphorus with with normal limits and BNP was 65.2. CT of the chest showed clustered groundglass pulmonary nodules in the right upper lobe that were tree-in-bud suggestive of atypical infectious etiology, an 8 mm lateral right upper lobe pulmonary nodule that was new from 2014 and trace right pleural effusion. In the emergency department she was given 1 dose of Lasix that she still makes urine and given IV steroids. Patient did get up to ambulate but felt quite dizzy with exertion so request for admission was made. [facility] Medical History Post-menopausal History of steroid therapy History of renal dialysis Blackout Gastric reflux Emphysema, unspecified Shortness of breath on exertion Normal Holter exam History of echocardiogram Hypertension Cardiology follow-up encounter History of heart attack History of atrial fibrillation Hemodialysis catheter malfunction Former cigarette smoker GERD (gastroesophageal reflux disease) Hyperlipidemia History of GI bleed Pleural effusion ESRD (end stage renal disease) on dialysis Essential hypertension NSTEMI (non-ST elevated myocardial infarction) EARNEST (acute kidney injury) Hx of ulcer disease Former smoker Atrial fibrillation Elevated blood pressure reading without diagnosis of hypertension Chronic hypoxemic respiratory failure Acute bronchospasm Acute exacerbation of chronic obstructive pulmonary disease Empyema of pleural space Syncope Bleeding ulcer Anemia requiring transfusions Lung nodules Pleurisy On home oxygen therapy Migraines Hyperglycemia Elevated serum creatinine Sinus tachycardia Fever and chills Dyspnea on exertion Acute bronchospasm COPD exacerbation Leukocytosis Community acquired pneumonia Anxiety Benign essential tremor Former tobacco use Pneumonia due to COVID-19 virus Asthma COPD (chronic obstructive pulmonary disease) Tobacco use Tremor Benign essential hypertension Home Medications ?Medication ?Instructions ?Recorded ?Last Taken ?Type albuterol sulfate 90 mcg/actuation 2 puff inhalation Q4H PRN PRN 08/28/15 12/22/23 04:30 History aerosol inhaler (Ventolin HFA) Shortness Of Breath montelukast 10 mg tablet 10 mg PO QHS ALLERGIES 02/25/18 03/12/24 History fluticasone propionate 50 2 spray intranasal QHS ALLERGIES 05/01/21 03/12/24 History mcg/actuation nasal spray,suspension atorvastatin 40 mg tablet 40 mg PO QHS 09/23/23 03/12/24 History ipratropium 0.5 mg-albuterol 3 mg 3 ml inhalation Q6H PRN shortness 09/23/23 03/12/24 History (2.5 mg base)/3 mL nebulization of breath or wheezing soln isosorbide mononitrate 60 mg 60 mg PO DAILY 09/23/23 03/12/24 History tablet,extended release 24 hr nitroglycerin 0.4 mg sublingual 0.4 mg sublingual Q5-15M PRN chest 09/23/23 Unknown History tablet pain polyethylene glycol 3350 17 17 g PO DAILY PRN constipation 09/23/23 Unknown History gram/dose oral powder buspirone 10 mg tablet 10 mg PO BID 09/27/23 03/12/24 History budesonide 160 mcg-glycopyr 9 2 inh inhalation BID 02/22/24 06/05/24 History mcg-formot 4.8 mcg/actuation HFA inhaler (Breztri Aerosphere) acetaminophen 325 mg capsule 650 mg PO Q6H PRN pain 04/19/24 Unknown History (Tylenol) ondansetron 4 mg disintegrating 4 mg PO Q8H PRN nausea and vomiting 04/19/24 Unknown History tablet pantoprazole 40 mg tablet,delayed 40 mg PO BID GERD 05/22/24 Unknown History release (Protonix) vitamin B complex-vitamin C-folic 1 tab PO DAILY 05/22/24 Unknown History acid 0.8 mg tablet (Galina-Jose Elias) oxycodone 5 mg tablet 5 mg PO Q8H PRN pain 4 days #12 06/05/24 Unknown Rx tabs sucralfate 1 gram tablet 1 g PO DAILY GI 07/08/24 Unknown History Allergy/AdvReac Type Severity Reaction Status Date / Time cephalexin monohydrate (From Allergy Chest Verified 07/08/24 02:09 Keflex) tightness vancomycin AdvReac Mild Itching Verified 07/08/24 02:09 Family History Other Adopted Family History adopted adopted Surgical History Hx of surgical procedure Hx of colonoscopy AVF (arteriovenous fistula) (03/13/24) Hx of colonoscopy History of cardiac catheterization Hx of total shoulder replacement Hx of chest tube placement Hx of esophagogastroduodenoscopy H/O bilateral salpingectomy History of herniorrhaphy Hx of tonsillectomy Hx of cholecystectomy Social History adopted: Yes household members: family housing: house Smoking Status: Former smoker how long ago did patient quit smokin years ago alcohol intake: never substance use type: does not use caffeine: Yes Type: coffee Number of servings: 1 ROS Constitutional Constitutional: Reports chills, fatigue, fever(s), malaise and weakness; Denies anorexia, change in weight, night sweats or other Eyes Eyes: Denies blurry vision, change in eye color, change in vision, discharge from eye(s), double vision, erythema, eye pain, loss of vision or other ENT HEENT: Reports headache(s), nasal congestion and nasal discharge; Denies abnormal hearing, dysphagia, ear pain, epistaxis, hearing loss, post nasal drip, sinus pressure, sore throat or other Cardiovascular Cardiovascular: Reports dyspnea on exertion; Denies chest pain, claudication, edema, lightheadedness, orthopnea, palpitations, paroxysmal nocturnal dyspnea, rapid heart rate, syncope or other Respiratory/Chest Respiratory/Chest: Reports cough, dyspnea, excessive phlegm production, productive cough, shortness of breath at rest, shortness of breath with exertion and wheezing; Denies hemoptysis or other Gastrointestinal Gastrointestinal: Denies abdominal pain, coffee ground emesis, constipation, diarrhea, dyspepsia, hematemesis, hematochezia, loose stools, melena, nausea, vomiting or other Genitourinary Genitourinary: Denies burning urination, difficulty urinating, dysuria, hematuria, nocturia, urinary frequency, urinary hesitancy, urinary incontinence, urinary urgency or other Musculoskeletal Musculoskeletal: Denies arthralgias, back pain, joint pain, joint stiffness, joint swelling, myalgias, neck pain or other Neurologic Neurologic: Denies abnormal gait, abnormal speech, confusion, disequilibrium, dizziness, focal weakness, headache(s), numbness, paresthesias, seizure-like activity, seizures, syncope, tingling, tremor(s) or other Psychiatric Psychiatric: Reports anxiety; Denies depression, homicidal ideation, suicidal ideation or other Endocrine Endocrinology: Denies change in body appearance, cold intolerance, excessive sweating, heat intolerance, polydipsia, polyuria or other Hematologic/Lymphatic Hematologic/Lymphatic: Denies anemia, easy bleeding, easy bruising, lymphadenopathy or other Allergic/Immunologic Allergic/Immunologic: Reports rhinitis and asthma; Denies hives, eczemia or other Vital Signs Vital Signs Vital Signs: 07/08/24 02:05 07/08/24 02:05 07/08/24 02:15 Temperature 99.5 F H 99.5 F H Temperature Source Oral Oral Pulse Rate 100 100 Respiratory Rate 18 24 H Respiratory Effort Short of Breath Blood Pressure 167/77 H 138/83 H Blood Pressure Mean 107 101 Pulse Ox 93 93 Oxygen Delivery Method Nasal Cannula Nasal Cannula Nasal Cannula Oxygen Flow Rate (L/min) 3 3 3 07/08/24 03:17 07/08/24 03:21 07/08/24 03:33 Temperature 98.5 F Temperature Source Oral Pulse Rate 94 95 Respiratory Rate 16 15 Respiratory Effort Blood Pressure 149/68 H 149/68 H Blood Pressure Mean 95 95 Pulse Ox 95 Oxygen Delivery Method Nasal Cannula Oxygen Flow Rate (L/min) 3 07/08/24 03:45 07/08/24 04:00 07/08/24 04:00 Temperature 98.2 F Temperature Source Oral Pulse Rate 95 85 Respiratory Rate 18 16 Respiratory Effort Blood Pressure 151/73 H 116/58 L 116/58 L Blood Pressure Mean 97 77 77 Pulse Ox 95 Oxygen Delivery Method Room Air Oxygen Flow Rate (L/min) 07/08/24 04:01 07/08/24 04:15 07/08/24 04:30 Temperature Temperature Source Pulse Rate 100 96 96 Respiratory Rate 34 H 20 H 22 H Respiratory Effort Blood Pressure Blood Pressure Mean Pulse Ox Oxygen Delivery Method Oxygen Flow Rate (L/min) 07/08/24 04:45 07/08/24 05:00 07/08/24 05:00 Temperature 98.9 F Temperature Source Oral Pulse Rate 98 92 94 Respiratory Rate 18 16 23 H Respiratory Effort Blood Pressure 149/72 H 150/71 H Blood Pressure Mean 97 93 Pulse Ox 99 Oxygen Delivery Method Nasal Cannula Oxygen Flow Rate (L/min) 3 07/08/24 05:15 07/08/24 05:30 07/08/24 05:45 Temperature Temperature Source Pulse Rate 99 110 H 96 Respiratory Rate 28 H 36 H 18 Respiratory Effort Blood Pressure 149/76 H Blood Pressure Mean 95 Pulse Ox Oxygen Delivery Method Oxygen Flow Rate (L/min) 07/08/24 05:58 Temperature 98.9 F Temperature Source Pulse Rate 92 Respiratory Rate 16 Respiratory Effort Blood Pressure 149/76 H Blood Pressure Mean 100 Pulse Ox 99 Oxygen Delivery Method Oxygen Flow Rate (L/min) Weight Weight: 67.1 kg Body Mass Index (BMI) 25.4 Physical Exam Const alert, oriented x3, no apparent distress, average body habitus and well nourished; Negative for healthy appearing Constitutional Narrative: Upper middle-aged, white female, sitting up in bed, at bedside, patient appears ill but not toxic General Appearance: cooperative HEENT normocephalic, head/scalp atraumatic, hearing grossly normal bilaterally and moist oral mucous membranes HEENT Narrative: Dentition is fair, Mallampati is 2, no thrush Eyes conjunctivae normal Eyes Narrative: No scleral icterus Neck no lymphadenopathy and supple Neck Narrative: Trachea midline, no thyroid enlargement Resp no retractions, no use of accessory muscles and No clear to auscultation bilaterally Resp Narrative: Diffusely diminished, mildly tachypneic but no signs of extremis, few scattered end expiratory wheezes Auscultation: wheezes; Negative for rales or rhonchi Cardio regular rate, regular rhythm, S1 normal heart sound, S2 normal heart sound, no murmurs, no rub, no gallops and no clicks GI normal to inspection, nondistended, normoactive bowel sounds, soft to palpation and non-tender Extremity no clubbing, cyanosis or edema Extremity Narrative: Pedal pulses are 2+, radial pulses are 2+ Skin skin turgor normal, no jaundice, no petechiae and no mottling Skin Narrative: Fistula with thrill and bruit,, catheter in right chest clean dry and intact Neuro oriented x3, moves all extremities and no focal motor deficits Speech: speech normal Psych Psych Narrative: Mildly anxious, affect is normal, patient interacts appropriately and is very pleasant Results Lab / Micro Data 07/08/24 02:18 07/08/24 02:18 Labs: Laboratory Results - last 24 hr 07/08/24 02:18: WBC 9.7, RBC 3.48 L, Hgb 10.7 L, Hct 32.6 L, MCV 93.7, MCH 30.7, MCHC 32.8, RDW Std Deviation 44.7 H, RDW Coeff of Laly 13.0, Plt Count 207, MPV 10.2, Immature Gran % (Auto) 0.300, Neut % (Auto) 74.4 H, Lymph % (Auto) 9.2 L, Mclennan % (Auto) 9.5, Eos % (Auto) 6.0 H, Baso % (Auto) 0.6, Absolute Neuts (auto) 7.2, Absolute Lymphs (auto) 0.89, Nucleated RBC % 0, Sodium 138, Potassium 3.2 L , Chloride 101, Carbon Dioxide 29.0, Anion Gap 8, BUN 29 H, Creatinine 3.51 H, Estim Creat Clear Calc 14.45, Est GFR (MDRD) Af Amer 17 L, Est GFR (MDRD) Non-Af 14 L, BUN/Creatinine Ratio 8.3 L, Glucose 114 H, Calcium 9.3, Phosphorus 3.6, Magnesium 1.9, B-Natriuretic Peptide 65.2 Micro: Microbiology 07/08/24 02:45 Mucosa - Nose SARS-CoV-2, Influenza & RSV (PCR) - Final Imaging Radiology Impression Chest CT 07/08/24 02:38 IMPRESSION: Scattered clustered groundglass pulmonary nodules right upper lobe predominant in a tree-in-bud distribution suggesting atypical infectious etiology. Dominant 8 mm lateral right upper lobe pulmonary nodule on image 27 of series 4, new from 2015. Trace right pleural effusion. Recommend follow-up evaluation as neoplastic process is not excluded. Ascending aorta measuring up to 43 mm in diameter. Electronically Signed: Vern Bone MD at 4:58 EST , Assessment & Plan Assessment/Plan (1) Respiratory syncytial virus bronchitis: (2) COPD exacerbation: (3) Hypokalemia: (4) Pulmonary nodule: (5) End-stage renal disease (ESRD): PLAN: Plan Acute exacerbation of COPD secondary to respiratory syncytial virus/possible bacterial pneumonia -Patient with productive cough of dark green and yellow sputum so will obtain sputum culture -CT was suggestive of possible atypical pneumonia in the upper lobe which could be viral versus atypical bacterial -Treat empirically for now with Levaquin 750 x 1 dose then 500 mg p.o. every 48 hours--> renal dosing -Check strep pneumo and Legionella antigens -Start aggressive pulmonary toilet with scheduled and as needed nebulizers -I-S -Acapella -Solu-Medrol 40 every 8 -Mucinex 1200 p.o. twice daily -As needed antitussive -Patient is oxygen dependent at baseline at 3 L [id number] currently stable at rest and with exertion however did desat to 90% with exertion became lightheaded -Will need ambulatory pulse ox prior to discharge Hypokalemia -P.o. potassium replacement -Recheck in a.m. -Check a.m. magnesium level Pulmonary nodule -New 8 mm right lateral upper lobe pulmonary nodule noted on CT of the chest -Patient with history of tobacco abuse and will need follow-up with pulmonary as an outpatient per Fleischner criteria End-stage renal disease-HD dependent -Consult nephrology -Nephrology schedule is MWF -Continue home Galina-Jose Elias Chronic hypoxic respiratory failure secondary to COPD -Baseline oxygen requirement is 3 L -Patient follows with Dr. Jasmine Evangelista at [facility] for pulmonary medicine Chronic HFpEF-compensated -Fluid management with dialysis -BNP is within normal limits -Echocardiogram from 06/04/2023 showed an EF of 65% with stage III diastolic dysfunction and no regional wall motion abnormalities. -Hold home inhalers and reinitiate at discharge History of transient atrial fibrillation Patient had 1 brief episode in 2022 while she was admitted to the hospital with an acute exacerbation of COPD and hypoxia -Currently not on any rate controlling medication or anticoagulation -Continue outpatient follow-up with cardiology -Will monitor on telemetry CAD/essential hypertension/hyperlipidemia -Patient with cardiac catheterization done in [place] that noted minimal to mild RCA disease -Not on any aspirin due to history of bleeding -Continue atorvastatin -Continue isosorbide mononitrate Seasonal allergies -Continue home Singulair -Continue home nasal spray GERD/peptic ulcer disease -Continue Carafate -Continue Protonix -EGD from 06/22/2023 showed erosive esophagitis, medium hiatal hernia, nonbleeding gastric ulcers and oozing duodenal ulcer with visible vessel -Hemoglobin is currently stable Chronic anemia secondary to renal disease -Hemoglobin stable at 10.7 -Continue to monitor Chronic pain -Continue home oxycodone Anxiety/depression -Continue home BuSpar DVT prophylaxis -Subcu heparin CODE STATUS -Full code as verified at the time of admission with her at the bedside Charges/Coding Visit Charges Inpatient E&M: 74849 Init Hosp L3
[2024-07-08] MEDS: Ipratropium/Albuterol Sulfate 3 ML AMPUL.NEB INHALATION ×5 (07:30→22:35)
[2024-07-08] MEDS: Potassium Chloride Oral Tablet 20 MEQ 40 MEQ PO (08:42)
[2024-07-08] MEDS: Sucralfate 1 GM Tablet PO (08:56)
[2024-07-08] MEDS: Pantoprazole Sodium 40 MG Tablet PO ×2 (08:57→21:17)
[2024-07-08] MEDS: levoFLOXacin 750 MG Tablet PO (08:57)
[2024-07-08] MEDS: Isosorbide Mononitrate 60 MG Tablet PO (08:57)
[2024-07-08] MEDS: busPIRone 5 MG Tablet 10 MG PO ×2 (08:57→21:14)
[2024-07-08] MEDS: guaiFENesin 1,200 MG Tablet 1200 MG PO (08:58)
[2024-07-08] MEDS: Folic Acid/Vitamin B Comp W-C 1 Capsule 1 CAP PO (08:58)
[2024-07-08] MEDS: Heparin Injection (Vial) 5,000 UNIT/ML VIAL 5000 UNIT SC ×2 (14:12→21:15)
[2024-07-08] MEDS: Acetaminophen 325 MG Tablet 650 MG PO ×2 (16:37→23:05)
[2024-07-08] MEDS: Atorvastatin Calcium 40 MG Tablet PO (21:13)
[2024-07-08] MEDS: Montelukast 10 MG Tablet PO (21:14)
[2024-07-08] MEDS: Fluticasone 0.05% 1 SPRAY NASAL.SRY 2 SPRAY NASAL (21:15)
[2024-07-08] MEDS: 0.9% Saline Lock 10 ML Syringe IV (23:05)
[2024-07-09] VITALS (26 sets, daily range): BP systolic 123–220; BP diastolic 66–88; PULSE 92–110; RESP 14–23; TEMP 35.9–36.8; O2SAT 88–100; BMI 24.4; BMI 23.8
[2024-07-09 05:26] LABS: Absolute Lymphocyte Count 0.71 X10^3/uL (0.83-4.51); Absolute Neutrophil Count 11.6 X10^3/uL (2.0-7.7); Basophil# 0.02 X10^3/uL; Basophil% 0.2 % (0-1); Hematocrit 32.7 % (37-47); Hemoglobin 10.6 g/dL (12.0-15.0); Lymphocyte # 0.71 X10^3/ul (0.83-4.51); Lymphocyte % 5.6 % (19-41); Mean Corp Hgb Conc 32.4 g/dL (32-36); Mean Corpuscular Hgb 30.4 pg (27.0-32.0); Mean Corpuscular Volume 93.7 fL (81-99); Mean Platelet Vol. 9.5 fl (6.2-12.0); Monocyte# 0.34 X10^3/uL; Monocyte% 2.7 % (0-10); NRBC Flagged by Analyzer 0 % (0-5); Neutrophil # 11.55 X10^3/uL (2.7-7.7); Neutrophil % 90.9 % (47-70); Platelet Count 227 K/mm3 (150-450); RBC Distribution Width SD 44.7 fl (35.1-43.9); Red Blood Count 3.49 M/mm3 (4.2-5.4); White Blood Count 12.7 K/mm3 (4.4-11.0)
[2024-07-09] MEDS: Heparin Injection (Vial) 5,000 UNIT/ML VIAL 5000 UNIT SC ×3 (05:27→21:45)
[2024-07-09] MEDS: 0.9% Saline Lock 10 ML Syringe IV ×2 (05:32→09:43)
[2024-07-09 05:44] LABS: ALB/GLOB Ratio 1.1 RATIO (0.9-2.4); AST(SGOT) 19 U/L (15-37); Alanine Aminotransfer ALT/SGPT 23 U/L (13-56); Albumin, Serum 3.6 g/dL (3.2-5.0); Alkaline Phosphatase 104 U/L (45-117); Anion Gap 7 (5-15); BUN 45 mg/dL (7-18); BUN/Creat Ratio 10.7 RATIO (10-20); Calcium,Total 9.3 mg/dL (8.5-10.1); Chloride 101 mmol/L (98-107); EST Glomerular Filtration Rate 11 mL/min (>60); Est Glom Filt Rate - Afr Amer 14 mL/min (>60); Estimated Creatinine Clearance 11.07 ml/min; Globulin 3.4 g/dL (2.2-4.2); Glucose 149 mg/dL (74-106); Magnesium 2.1 mg/dL (1.6-2.6); Potassium 4.3 mmol/L (3.5-5.1); Sodium Level 135 mmol/L (136-145)
[2024-07-09] MEDS: Ipratropium/Albuterol Sulfate 3 ML AMPUL.NEB INHALATION ×5 (07:10→23:50)
--- NOTE | 2024-07-09 08:45 | PN.HOSP_ITS ---
Subjective Subjective On her baseline oxygen, feels that she has more mucus today. Also significant increase in her baseline tremors due to the steroids Objective Data Objective Data Vital Signs: Vital Signs Temp Pulse Resp BP Pulse Ox O2 Del Method O2 Flow Rate 97.6 F L 103 H 16 146/78 H 97 Nasal Cannula 3 07/09/24 08:00 07/09/24 08:32 07/09/24 08:00 07/09/24 08:32 07/09/24 08:00 07/09/24 08:00 07/09/24 08:00 Oxygen Flow Rate (L/min) 3 Oxygen Delivery Method Nasal Cannula Weight: 142 lb 6.698 oz Body Mass Index (BMI) 24.4 Intake & Output: Intake and Output for Last 24 Hours 07/08/24 07/09/24 07/10/24 03:59 03:59 03:59 Output Total 300 / 300 Balance -300 / -300 Lab / Micro Data 07/09/24 05:13 07/09/24 05:13 Labs: Laboratory Results - last 24 hr 07/09/24 05:13: WBC 12.7 H, RBC 3.49 L, Hgb 10.6 L, Hct 32.7 L, MCV 93.7, MCH 30.4, MCHC 32.4, RDW Std Deviation 44.7 H, RDW Coeff of Laly 13.0, Plt Count 227, MPV 9.5, Immature Gran % (Auto) 0.600, Neut % (Auto) 90.9 H, Lymph % (Auto) 5.6 L, Ralls % (Auto) 2.7, Eos % (Auto) 0.0, Baso % (Auto) 0.2, Absolute Neuts (auto) 11.6 H, Absolute Lymphs (auto) 0.71 L, Nucleated RBC % 0, Sodium 135 L, Potassium 4.3, Chloride 101, Carbon Dioxide 28.0, Anion Gap 7, BUN 45 H, C reatinine 4.20 H, Estim Creat Clear Calc 11.07, Est GFR (MDRD) Af Amer 14 L, Est GFR (MDRD) Non-Af 11 L, BUN/Creatinine Ratio 10.7, Glucose 149 H, Calcium 9.3, P hosphorus 5.0 H, Magnesium 2.1, Total Bilirubin 0.40, AST 19, ALT 23, Alkaline Phosphatase 104, Total Protein 7.0, Albumin 3.6, Globulin 3.4, Albumin/Globulin Ratio 1.1 Micro: Microbiology 07/08/24 02:45 Mucosa - Nose SARS-CoV-2, Influenza & RSV (PCR) - Final RSV Physical Exam Narrative General: Alert, Oriented x3, Cooperative, No apparent distress HEENT: Atraumatic, PERRLA, EOMI, Normocephalic Oral: Moist Mucosa Neck: Supple, No JVD Lungs: Diminished, Normal air movement, rhonchi, wheeze, No rales Cardiovascular: Regular rate, Regular Rhythm, Normal S1, Normal S2, No murmurs Abdomen: Soft, Non Tender, Non-Distended, No Hepato-splenomegaly Extremities: No edema, Capillary Refill Less than 3 Seconds Skin: No rashes, No breakdown Musculoskeletal: No Tenderness to Palpation of Joints or Extremities Neurological: No focal neurological deficits, moves all extremities, baseline tremor Psych/Mental Status: Normal Affect, Appropriate Assessment & Plan Assessment/Plan (1) Respiratory syncytial virus bronchitis: (2) COPD exacerbation: (3) Pulmonary nodule: (4) End-stage renal disease (ESRD): PLAN: Plan Acute exacerbation of COPD secondary to respiratory syncytial virus/possible bacterial pneumonia -Patient with productive cough of dark green and yellow sputum so will obtain sputum culture -CT was suggestive of possible atypical pneumonia in the upper lobe which could be viral versus atypical bacterial -Treat empirically for now with Levaquin 750 x 1 dose then 500 mg p.o. every 48 hours--> renal dosing -Check strep pneumo and Legionella antigens -Start aggressive pulmonary toilet with scheduled and as needed nebulizers -I-S -Acapella -Solu-Medrol 40 every 8 -Mucinex 1200 p.o. twice daily -As needed antitussive -Patient is oxygen dependent at baseline at 3 L [id number] currently stable at rest and with exertion however did desat to 90% with exertion became lightheaded -Will need ambulatory pulse ox prior to discharge Hypokalemia -P.o. potassium replacement -Recheck in a.m. -Check a.m. magnesium level Pulmonary nodule -New 8 mm right lateral upper lobe pulmonary nodule noted on CT of the chest -Patient with history of tobacco abuse and will need follow-up with pulmonary as an outpatient per Fleischner criteria End-stage renal disease-HD dependent -Consult nephrology -Nephrology schedule is MWF -Continue home Galina-Jose Elias Chronic hypoxic respiratory failure secondary to COPD -Baseline oxygen requirement is 3 L -Patient follows with Dr. Jasmine Evangelista at [facility] for pulmonary medicine Chronic HFpEF-compensated -Fluid management with dialysis -BNP is within normal limits -Echocardiogram from 06/04/2023 showed an EF of 65% with stage III diastolic dysfunction and no regional wall motion abnormalities. -Hold home inhalers and reinitiate at discharge History of transient atrial fibrillation Patient had 1 brief episode in 2022 while she was admitted to the hospital with an acute exacerbation of COPD and hypoxia -Currently not on any rate controlling medication or anticoagulation -Continue outpatient follow-up with cardiology -Will monitor on telemetry CAD/essential hypertension/hyperlipidemia -Patient with cardiac catheterization done in [place] that noted minimal to mild RCA disease -Not on any aspirin due to history of bleeding -Continue atorvastatin -Continue isosorbide mononitrate Seasonal allergies -Continue home Singulair -Continue home nasal spray GERD/peptic ulcer disease -Continue Carafate -Continue Protonix -EGD from 06/22/2023 showed erosive esophagitis, medium hiatal hernia, nonbleeding gastric ulcers and oozing duodenal ulcer with visible vessel -Hemoglobin is currently stable Chronic anemia secondary to renal disease -Hemoglobin stable at 10.7 -Continue to monitor Chronic pain -Continue home oxycodone Anxiety/depression -Continue home BuSpar DVT prophylaxis -Subcu heparin CODE STATUS -Full code as verified at the time of admission with her at the bedside
--- NOTE | 2024-07-09 08:45 | PCM.PN.HOSP ---
Subjective Subjective On her baseline oxygen, feels that she has more mucus today. Also significant increase in her baseline tremors due to the steroids Objective Data Objective Data Vital Signs: Vital Signs Temp Pulse Resp BP Pulse Ox O2 Del Method O2 Flow Rate 97.6 F L 103 H 16 146/78 H 97 Nasal Cannula 3 07/09/24 08:00 07/09/24 08:32 07/09/24 08:00 07/09/24 08:32 07/09/24 08:00 07/09/24 08:00 07/09/24 08:00 Oxygen Flow Rate (L/min) 3 Oxygen Delivery Method Nasal Cannula Weight: 142 lb 6.698 oz Body Mass Index (BMI) 24.4 Intake & Output: Intake and Output for Last 24 Hours 07/08/24 07/09/24 07/10/24 03:59 03:59 03:59 Output Total 300 / 300 Balance -300 / -300 Lab / Micro Data 07/09/24 05:13 07/09/24 05:13 Labs: Laboratory Results - last 24 hr 07/09/24 05:13: WBC 12.7 H, RBC 3.49 L, Hgb 10.6 L, Hct 32.7 L, MCV 93.7, MCH 30.4, MCHC 32.4, RDW Std Deviation 44.7 H, RDW Coeff of Laly 13.0, Plt Count 227, MPV 9.5, Immature Gran % (Auto) 0.600, Neut % (Auto) 90.9 H, Lymph % (Auto) 5.6 L, [place] % (Auto) 2.7, Eos % (Auto) 0.0, Baso % (Auto) 0.2, Absolute Neuts (auto) 11.6 H, Absolute Lymphs (auto) 0.71 L, Nucleated RBC % 0, Sodium 135 L, Potassium 4.3, Chloride 101, Carbon Dioxide 28.0, Anion Gap 7, BUN 45 H, Creatinine 4.20 H, Estim Creat Clear Calc 11.07, Est GFR (MDRD) Af Amer 14 L, Est GFR (MDRD) Non-Af 11 L, BUN/Creatinine Ratio 10.7, Glucose 149 H, Calcium 9.3, Phosphorus 5.0 H, Magnesium 2.1, Total Bilirubin 0.40, AST 19, ALT 23, Alkaline Phosphatase 104, Total Protein 7.0, Albumin 3.6, Globulin 3.4, Albumin/Globulin Ratio 1.1 Micro: Microbiology 07/08/24 02:45 Mucosa - Nose SARS-CoV-2, Influenza & RSV (PCR) - Final RSV Physical Exam Narrative General: Alert, Oriented x3, Cooperative, No apparent distress HEENT: Atraumatic, PERRLA, EOMI, Normocephalic Oral: Moist Mucosa Neck: Supple, No JVD Lungs: Diminished, Normal air movement, rhonchi, wheeze, No rales Cardiovascular: Regular rate, Regular Rhythm, Normal S1, Normal S2, No murmurs Abdomen: Soft, Non Tender, Non-Distended, No Hepato-splenomegaly Extremities: No edema, Capillary Refill Less than 3 Seconds Skin: No rashes, No breakdown Musculoskeletal: No Tenderness to Palpation of Joints or Extremities Neurological: No focal neurological deficits, moves all extremities, baseline tremor Psych/Mental Status: Normal Affect, Appropriate Assessment & Plan Assessment/Plan (1) Respiratory syncytial virus bronchitis: (2) COPD exacerbation: (3) Pulmonary nodule: (4) End-stage renal disease (ESRD): PLAN: Plan 1. Acute COPD exacerbation secondary to RSV with possible bacterial pneumonia/pulmonary nodule ? CT scan was suggestive with a possible atypical pneumonia so she was started on Levaquin, given renal functions will be dosed every 48 hours ? Continue with steroids I will decrease to prednisone today given her tremors ? She is at baseline with 3 L nasal cannula ? Continue with inhalers ? Incentive spirometry ? She does have an 8 mm right lateral upper lobe pulmonary nodule on the CT of the chest, she will need to follow-up with pulmonology as an outpatient 2. End-stage renal disease with anemia of chronic disease ? Currently on dialysis MWF ? Consult nephrology ? Hemoglobin is at baseline we will monitor 3. Chronic diastolic CHF/essential HTN/HLD/CAD ? Continue with her blood pressure medications ? Continue with Lipitor ? Will monitor and make adjustments as necessary ? Echo in 06/04/2023 with an EF of 65% stage III diastolic dysfunction 4. GERD ? Stable ? Continue with her home medications 5. Anxiety/depression ? Stable ? Continue with her home medications DVT: Heparin Charges/Coding Visit Charges Inpatient E&M: 05893 Subs Hosp L2
[2024-07-09] MEDS: PureFlow B 3K Dialysis Soln 1 BAG 6 BAG PF (09:42)
[2024-07-09] MEDS: 0.9% Normal Saline 1,000 ML IV.SOLN. 1000 ML OPERA.SITE (09:42)
--- NOTE | 2024-07-09 09:42 | CASEMGMT ---
Social Work- SW participated in interdisciplinary rounds with pt medical team to discuss pt care and introduce self and roles. No reported SW needs at this time. COURTNEY Roca
[2024-07-09] MEDS: Heparin 10,000 UNITS/10 ML Vial IV (09:43)
[2024-07-09] MEDS: Acetaminophen 325 MG Tablet 650 MG PO (11:56)
[2024-07-09] MEDS: Pantoprazole Sodium 40 MG Tablet PO ×2 (11:56→21:45)
[2024-07-09] MEDS: guaiFENesin 1,200 MG Tablet 1200 MG PO ×2 (11:59→21:45)
--- NOTE | 2024-07-09 12:04 | CASEMGMT ---
Addendum entered by Matilde Myrick 07/09/24 12:05: [facility] states that they have received the referral and are processing it now. Original Note: RN YOLANDA Assessment ? Face to Face with patient for initial?transition planning/care coordination assessment. RN CM introduced self and role at [facility], pt voices understanding. Pt is A&Ox4 and is resting comfortably in bed and is calm. Pt is currently being dialyzed. Care providers, pharmacy, and demographics verified. ? Admitting dx: ?Acute exacerbation of COPD, RSV, Pneumonia LACE Strata: ?3 PCP: ?Julio Draper Specialists: ?Jane Evangelista (Video Poker Floorman), Friend (GI), Martin (Cardio), Renny (Spanish Interpreter/Translator) Preferred Pharmacy: [facility] ? Insurance: ?[facility] A/B, [facility] Prescription Benefit: ?Yes LNOK: ?Cash Perdomo (), Evelin Mile (Daughter) Living Arrangements: ?The patient lives with her , 34-year-old daughter, 34-year-old son-in-law, and 13-year-old grandson in a single-story home with three steps to enter. ADLs/IADLs:?The patient states that she is normally independent but for the past few weeks she has been requiring assistance from her , daughter, and grandson. Transportation: Patient does not drive, patient drives and denies concerns? DME: ?Home oxygen through [employer]. Telephone call to Jorge and Evelin states that the patient's most recent order states 2L continuous via nasal cannula. Patient has a concentrator, portable tanks, pulse oximeter, and nebulizer. Patient states that her can bring in her portable tank at the time of discharge. Patient also reports that she has a shower chair, walker, cane, Rollator, hospital bed, and recliner. HHC/SNF: ?patient has a history with [facility]. Patient denies SNF history. Patient states that she would like to go home at the time of discharge and have home healthcare set up. Patient denies wanting to review a list of local in-network home healthcare agencies and states that she prefers to go through [facility] again. Patient states that she had a wonderful experience last time with [facility]. Telephone call to Nell at [facility] and referral made for SN, PT, & OT and Nell states that they are able to accept the patient for a tentative start of care date of . Palliative: patient states that she is not active with any Palliative care services. Pt educated about these services regarding the pt COPD. Patient states that she is interested in getting this established. This RN YOLANDA collaborated with Dr. Izaguirre who states that he is agreeable. Order placed. Screening tool completed. Referral sent to [facility] at this time with order, face sheet, and screening tool. HD: Patient attends [facility] in [place] every Tuesday, Tuesday, and Tuesday with a chair time at 6:40 AM. Patient states that her drives her to this and denies concerns. Patient states that she has not missed any appointments. Pt?s goal:?return once medically ready Plan: ?Anticipate return home with the patient?s family once medically ready with home healthcare, palliative care, continual outpatient hemodialysis, and oxygen. At this time, the patient denies senior care facility needs. However, physical therapy and occupational therapy evaluations are pending. Current 6-Click score is 18. Case management to follow therapy evaluations and follow up with the patient as needed. Patient denies any further questions, concerns, or needs at this time. Care management to follow. Paz Myrick RN, CM
[2024-07-09] MEDS: busPIRone 5 MG Tablet 10 MG PO ×2 (12:57→21:45)
[2024-07-09] MEDS: Folic Acid/Vitamin B Comp W-C 1 Capsule 1 CAP PO (12:57)
[2024-07-09] MEDS: Isosorbide Mononitrate 60 MG Tablet PO (13:01)
--- NOTE | 2024-07-09 13:37 | CHAPLAIN ---
Type of Pastoral Visit _x__ Initial Visit ___ Follow-up Visit ___ On-call Visit ___ General Patient Visit ___ Spiritual Assessment ___ Family Conference ___ Bereavement ___ Rapid Response ___ Code Blue ___ Other (describe below) Pastoral Care Referral From _x__ Patient ___ Family ___ Nurse ___ Physician ___ Classroom Teacher ___ Mattress Weaver ___ Other (describe below) Sacrament/Intervention _x__ Active listening ___ Anointing ___ Jain ___ Bereavement ___ Communion ___ Henna exploration ___ ___ Life review _x__ Prayer ___ Reconciliation ___ Sacrament of Sick ___ Supportive presence ___ Wedding ___ Other (describe below) Pastoral Comments patient just finished her dialysis treatment and is now going to rest; pt reviews briefly this 'annual visit' to the hospital; pt states that a prayer would be beneficial at this time
--- NOTE | 2024-07-09 16:04 | CON.PCM.RE_ITS ---
Assessment & Plan Assessment/Plan (1) End-stage renal disease (ESRD): PLAN: HD today. seen on HD. see orders. breathing looks comfortable. UF as tolerated HPI Consult Data Date of Consult: 07/09/24 HPI Narrative Reason for Consultation: ESRD HPI Narrative: SNEHA CARDENAS, is a 69 F who presents to hospital with dyspnea. renal consulted for ESRD. on HD MWF schedule. admitted for RSV pneumonia. possible secondary pneumonia. seen on HD today. [facility] Medical History Post-menopausal History of steroid therapy History of renal dialysis Blackout Gastric reflux Emphysema, unspecified Shortness of breath on exertion Normal Holter exam History of echocardiogram Hypertension Cardiology follow-up encounter History of heart attack History of atrial fibrillation Hemodialysis catheter malfunction Former cigarette smoker GERD (gastroesophageal reflux disease) Hyperlipidemia History of GI bleed Pleural effusion ESRD (end stage renal disease) on dialysis Essential hypertension NSTEMI (non-ST elevated myocardial infarction) EARNEST (acute kidney injury) Hx of ulcer disease Former smoker Atrial fibrillation Elevated blood pressure reading without diagnosis of hypertension Chronic hypoxemic respiratory failure Acute bronchospasm Acute exacerbation of chronic obstructive pulmonary disease Empyema of pleural space Syncope Bleeding ulcer Anemia requiring transfusions Lung nodules Pleurisy On home oxygen therapy Migraines Hyperglycemia Elevated serum creatinine Sinus tachycardia Fever and chills Dyspnea on exertion Acute bronchospasm COPD exacerbation Leukocytosis Community acquired pneumonia Anxiety Benign essential tremor Former tobacco use Pneumonia due to COVID-19 virus Asthma COPD (chronic obstructive pulmonary disease) Tobacco use Tremor Benign essential hypertension Home Medications ?Medication ?Instructions ?Recorded ?Last Taken ?Type albuterol sulfate 90 mcg/actuation 2 puff inhalation Q4H PRN PRN 08/28/15 12/22/23 04:30 History aerosol inhaler (Ventolin HFA) Shortness Of Breath montelukast 10 mg tablet 10 mg PO QHS ALLERGIES 02/25/18 03/12/24 History fluticasone propionate 50 2 spray intranasal QHS ALLERGIES 05/01/21 03/12/24 History mcg/actuation nasal spray,suspension atorvastatin 40 mg tablet 40 mg PO QHS 09/23/23 03/12/24 History ipratropium 0.5 mg-albuterol 3 mg 3 ml inhalation Q6H PRN shortness 09/23/23 03/12/24 History (2.5 mg base)/3 mL nebulization of breath or wheezing soln isosorbide mononitrate 60 mg 60 mg PO DAILY 09/23/23 03/12/24 History tablet,extended release 24 hr nitroglycerin 0.4 mg sublingual 0.4 mg sublingual Q5-15M PRN chest 09/23/23 Unknown History tablet pain polyethylene glycol 3350 17 17 g PO DAILY PRN constipation 09/23/23 Unknown History gram/dose oral powder buspirone 10 mg tablet 10 mg PO BID 09/27/23 03/12/24 History budesonide 160 mcg-glycopyr 9 2 inh inhalation BID 02/22/24 06/05/24 History mcg-formot 4.8 mcg/actuation HFA inhaler (Breztri Aerosphere) acetaminophen 325 mg capsule 650 mg PO Q6H PRN pain 04/19/24 Unknown History (Tylenol) ondansetron 4 mg disintegrating 4 mg PO Q8H PRN nausea and vomiting 04/19/24 Unknown History tablet pantoprazole 40 mg tablet,delayed 40 mg PO BID GERD 05/22/24 Unknown History release (Protonix) vitamin B complex-vitamin C-folic 1 tab PO DAILY 05/22/24 Unknown History acid 0.8 mg tablet (Galina-Jose Elias) oxycodone 5 mg tablet 5 mg PO Q8H PRN pain 4 days #12 06/05/24 Unknown Rx tabs sucralfate 1 gram tablet 1 g PO DAILY GI 07/08/24 Unknown History Allergy/AdvReac Type Severity Reaction Status Date / Time cephalexin monohydrate (From Allergy Chest Verified 07/08/24 02:09 Keflex) tightness vancomycin AdvReac Mild Itching Verified 07/08/24 02:09 Family History Other Adopted Family History adopted Surgical History Hx of surgical procedure Hx of colonoscopy AVF (arteriovenous fistula) (03/13/24) Hx of colonoscopy History of cardiac catheterization Hx of total shoulder replacement Hx of chest tube placement Hx of esophagogastroduodenoscopy H/O bilateral salpingectomy History of herniorrhaphy Hx of tonsillectomy Hx of cholecystectomy Social History adopted: Yes household members: family housing: house Smoking Status: Former smoker how long ago did patient quit smokin years ago alcohol intake: never substance use type: does not use caffeine: Yes Type: coffee Number of servings: 1 ROS ROS Narrative negative except above Physical Exam Narrative Alert awake oriented x 3 no obvious distress no pallor no icterus no JVD s1s2 no murmurs lungs clear abdomen soft no organomegaly no edema no cyanosis Lab / Micro Data 07/09/24 05:13 07/09/24 05:13 Labs: Laboratory Results - last 24 hr 07/09/24 05:13: WBC 12.7 H, RBC 3.49 L, Hgb 10.6 L, Hct 32.7 L, MCV 93.7, MCH 30.4, MCHC 32.4, RDW Std Deviation 44.7 H, RDW Coeff of Laly 13.0, Plt Count 227, MPV 9.5, Immature Gran % (Auto) 0.600, Neut % (Auto) 90.9 H, Lymph % (Auto) 5.6 L, [place] % (Auto) 2.7, Eos % (Auto) 0.0, Baso % (Auto) 0.2, Absolute Neuts (auto) 11.6 H, Absolute Lymphs (auto) 0.71 L, Nucleated RBC % 0, Sodium 135 L, Potassium 4.3, Chloride 101, Carbon Dioxide 28.0, Anion Gap 7, BUN 45 H, C reatinine 4.20 H, Estim Creat Clear Calc 11.07, Est GFR (MDRD) Af Amer 14 L, Est GFR (MDRD) Non-Af 11 L, BUN/Creatinine Ratio 10.7, Glucose 149 H, Calcium 9.3, P hosphorus 5.0 H, Magnesium 2.1, Total Bilirubin 0.40, AST 19, ALT 23, Alkaline Phosphatase 104, Total Protein 7.0, Albumin 3.6, Globulin 3.4, Albumin/Globulin Ratio 1.1 Micro: Microbiology 07/08/24 22:50 Sputum, Expectorated/Coughed Gram Stain - Final
[2024-07-09] MEDS: Atorvastatin Calcium 40 MG Tablet PO (21:45)
[2024-07-09] MEDS: Montelukast 10 MG Tablet PO (21:45)
[2024-07-09] MEDS: Fluticasone 0.05% 1 SPRAY NASAL.SRY 2 SPRAY NASAL (21:46)
[2024-07-10] VITALS (12 sets, daily range): BP systolic 140–155; BP diastolic 73–96; PULSE 94–107; RESP 16–26; TEMP 36.6–37.1; O2SAT 92–98; BMI 24.1
[2024-07-10] MEDS: Acetaminophen 325 MG Tablet 650 MG PO ×2 (01:35→12:42)
[2024-07-10] MEDS: Ipratropium/Albuterol Sulfate 3 ML AMPUL.NEB INHALATION ×6 (03:05→23:35)
[2024-07-10] MEDS: Sucralfate 1 GM Tablet PO (05:57)
[2024-07-10] MEDS: levoFLOXacin 500 MG Tablet PO (05:57)
[2024-07-10] MEDS: Heparin Injection (Vial) 5,000 UNIT/ML VIAL 5000 UNIT SC ×3 (05:57→22:50)
[2024-07-10 07:34] LABS: Anion Gap 7 (5-15); BUN 46 mg/dL (7-18); BUN/Creat Ratio 13.5 RATIO (10-20); Calcium,Total 8.9 mg/dL (8.5-10.1); Chloride 102 mmol/L (98-107); Creatinine, Serum 3.42 mg/dL (0.55-1.02); EST Glomerular Filtration Rate 14 mL/min (>60); Est Glom Filt Rate - Afr Amer 17 mL/min (>60); Glucose 94 mg/dL (74-106); Potassium 4.1 mmol/L (3.5-5.1); Sodium Level 135 mmol/L (136-145)
[2024-07-10] MEDS: guaiFENesin 1,200 MG Tablet 1200 MG PO ×2 (09:24→22:50)
[2024-07-10] MEDS: Pantoprazole Sodium 40 MG Tablet PO ×2 (09:24→22:50)
[2024-07-10] MEDS: predniSONE 20 MG Tablet 40 MG PO (09:28)
[2024-07-10] MEDS: Folic Acid/Vitamin B Comp W-C 1 Capsule 1 CAP PO (10:27)
[2024-07-10] MEDS: Isosorbide Mononitrate 60 MG Tablet PO (10:28)
[2024-07-10] MEDS: busPIRone 5 MG Tablet 10 MG PO ×2 (10:28→22:49)
--- NOTE | 2024-07-10 12:17 | PCM.PN.REN ---
Subjective Subjective no new events Objective Data Objective Data Vital Signs: Vital Signs Temp Pulse Resp BP Pulse Ox O2 Del Method O2 Flow Rate 98 F 98 20 H 147/73 H 97 Nasal Cannula 3 07/10/24 02:00 07/10/24 12:06 07/10/24 12:06 07/10/24 02:00 07/10/24 06:54 07/10/24 06:54 07/10/24 09:30 Oxygen Flow Rate (L/min) 3 Oxygen Delivery Method Nasal Cannula Weight: 64.1 kg Body Mass Index (BMI) 24.1 Intake & Output: Intake and Output for Last 24 Hours 07/08/24 07/09/24 07/10/24 23:59 23:59 23:59 Intake Total 240 / 240 Output Total 300 / 300 800 / 800 Balance -300 / -300 -560 / -560 Lab / Micro Data 07/09/24 05:13 07/10/24 06:27 Labs: Laboratory Results - last 24 hr 07/10/24 06:27: Sodium 135 L, Potassium 4.1, Chloride 102, Carbon Dioxide 26.0, Anion Gap 7, BUN 46 H, Creatinine 3.42 H, Estim Creat Clear Calc 13.60, Est GFR (MDRD) Af Amer 17 L, Est GFR (MDRD) Non-Af 14 L, BUN/Creatinine Ratio 13.5, Glucose 94, Calcium 8.9 Micro: Microbiology 07/08/24 22:50 Sputum, Expectorated/Coughed Gram Stain - Final 07/08/24 22:50 Sputum, Expectorated/Coughed Respiratory Culture - Preliminary Appears to be normal respiratory kirk. Further studies to follow. 07/09/24 18:57 Urine, Clean Catch Legionella Antigen - Final 07/09/24 18:57 Urine, Clean Catch Streptococcus pneumoniae Antigen (M - Final 07/08/24 02:45 Mucosa - Nose SARS-CoV-2, Influenza & RSV (PCR) - Final RSV Physical Exam Narrative Alert awake oriented x 3 no obvious distress no pallor no icterus no JVD s1s2 no murmurs lungs clear abdomen soft no organomegaly no edema no cyanosis Assessment & Plan Assessment/Plan (1) End-stage renal disease (ESRD): PLAN: HD MWF schedule
--- NOTE | 2024-07-10 12:46 | CASEMGMT ---
Social Work SW spoke w/pt in room, to confirm the discharge plan. Pt continues to say that she would like to return home at discharge and do rehab at home. Pt states she does feel better today. Home health care already is being arranged by CM, and CM will continue to follow. MERY Orozco
--- NOTE | 2024-07-10 15:07 | PCM.PN.HOSP ---
Reason for Visit Reason for Visit: Diagnoses Hypokalemia (07/08/24) Acute bronchitis due to respiratory syncytial virus (07/08/24) Chronic obstructive pulmonary disease with (acute) exacerbation (07/08/24) End stage renal disease (07/08/24) Solitary pulmonary nodule (07/08/24) Subjective Subjective Patient still has significant shortness of breath but slowly improving, still productive cough but this is improving as well Objective Data Objective Data Vital Signs: Vital Signs Temp Pulse Resp BP Pulse Ox O2 Del Method O2 Flow Rate 98.4 F 98 20 H 155/74 H 95 Nasal Cannula 3 07/10/24 08:00 07/10/24 12:06 07/10/24 12:06 07/10/24 08:00 07/10/24 08:00 07/10/24 08:00 07/10/24 09:30 Oxygen Flow Rate (L/min) 3 Oxygen Delivery Method Nasal Cannula Weight: 64.1 kg Body Mass Index (BMI) 24.1 Intake & Output: Intake and Output for Last 24 Hours 07/08/24 07/09/24 07/10/24 23:59 23:59 23:59 Intake Total 240 / 240 480 / 480 Output Total 300 / 300 800 / 800 Balance -300 / -300 -560 / -560 480 / 480 Lab / Micro Data 07/09/24 05:13 07/10/24 06:27 Labs: Laboratory Results - last 24 hr 07/10/24 06:27: Sodium 135 L, Potassium 4.1, Chloride 102, Carbon Dioxide 26.0, Anion Gap 7, BUN 46 H, Creatinine 3.42 H, Estim Creat Clear Calc 13.60, Est GFR (MDRD) Af Amer 17 L, Est GFR (MDRD) Non-Af 14 L, BUN/Creatinine Ratio 13.5, Glucose 94, Calcium 8.9 Micro: Microbiology 07/08/24 22:50 Sputum, Expectorated/Coughed Gram Stain - Final 07/08/24 22:50 Sputum, Expectorated/Coughed Respiratory Culture - Preliminary Appears to be normal respiratory kirk. Further studies to follow. 07/09/24 18:57 Urine, Clean Catch Legionella Antigen - Final 07/09/24 18:57 Urine, Clean Catch Streptococcus pneumoniae Antigen (M - Final 07/08/24 02:45 Mucosa - Nose SARS-CoV-2, Influenza & RSV (PCR) - Final RSV Physical Exam Narrative General: Alert, oriented HEENT: Atraumatic, normocephalic Eyes: Anicteric, normal conjunctiva, extraocular movements grossly intact Neck: Supple Respiratory: Somewhat coarse on right side with increased respiratory effort Cardiovascular: Regular rate GI: Soft, nontender, nondistended Extremities: No edema Musculoskeletal: Moving all extremities Neuro: No overt focal neurological deficits Skin: No rashes appreciated Psych: Cooperative Assessment & Plan Assessment/Plan (1) COPD exacerbation: PLAN: Plan #Acute exacerbation of COPD secondary to RSV and suspected right upper lobe pneumonia with chronic hypoxic respiratory failure on 3 L home O2 -Admit to floor, continuous O2 monitoring -Chest CT with right upper lobe changes suggestive of infectious etiology COVID negative RSV positive sputum culture appears to be normal kirk -Urine antigens negative -O2 in place, wean as tolerated -Transition to p.o. steroids -Scheduled DuoNebs -Albuterol prn -Antibiotics: Levaquin -Incentive spirometer -Mucinex -Suspect DC tomorrow after dialysis #ESRD on HD -Consult nephrology -Renal diet -Daily weights, I's and O's # History of chronic heart failure with preserved ejection fraction -Monitoring daily weights, I's and O's -Echo in 06/04/2023 with an EF of 65% stage III diastolic dysfunction #GERD -Continue PPI # Right upper lobe nodule -Will need outpatient follow-up for further workup or monitoring of an 8 mm right upper lobe nodule seen on CT scan #Depression/anxiety -Continue home medications #DVT ppx: Heparin subcu Diana Santillan MD Time spent in the patient's overall evaluation, decision-making process, review of diagnostic data, adjustment of management, discussion with other providers, nursing and ancillary staff involved in patient's care documentation, 36 Minutes Charges/Coding Visit Charges Inpatient E&M: 82728 Subs Hosp L2
[2024-07-10] MEDS: 0.9% Saline Lock 10 ML Syringe IV (18:56)
[2024-07-10] MEDS: Fluticasone 0.05% 1 SPRAY NASAL.SRY 2 SPRAY NASAL (22:49)
[2024-07-10] MEDS: Montelukast 10 MG Tablet PO (22:50)
[2024-07-10] MEDS: Atorvastatin Calcium 40 MG Tablet PO (22:50)
[2024-07-11] VITALS (18 sets, daily range): BP systolic 128–247; BP diastolic 64–109; PULSE 84–92; RESP 14–20; TEMP 36.1–36.8; O2SAT 88–100; BMI 24.1; BMI 23.3
[2024-07-11] MEDS: Ipratropium/Albuterol Sulfate 3 ML AMPUL.NEB INHALATION ×3 (03:42→14:56)
[2024-07-11 04:44] LABS: Hematocrit 33.2 % (37-47); Hemoglobin 10.5 g/dL (12.0-15.0); Mean Corp Hgb Conc 31.6 g/dL (32-36); Mean Corpuscular Volume 94.9 fL (81-99); Mean Platelet Vol. 10.2 fl (6.2-12.0); Platelet Count 238 K/mm3 (150-450); RBC Distribution Width CV 13.2 % (11.6-14.6); RBC Distribution Width SD 45.6 fl (35.1-43.9); White Blood Count 9.8 K/mm3 (4.4-11.0)
[2024-07-11 05:04] LABS: Anion Gap 7 (5-15); BUN 67 mg/dL (7-18); BUN/Creat Ratio 17.2 RATIO (10-20); Chloride 103 mmol/L (98-107); EST Glomerular Filtration Rate 12 mL/min (>60); Est Glom Filt Rate - Afr Amer 15 mL/min (>60); Estimated Creatinine Clearance 11.92 ml/min; Glucose 90 mg/dL (74-106); Potassium 4.4 mmol/L (3.5-5.1); Sodium Level 136 mmol/L (136-145)
[2024-07-11] MEDS: Heparin Injection (Vial) 5,000 UNIT/ML VIAL 5000 UNIT SC (06:21)
[2024-07-11] MEDS: Sucralfate 1 GM Tablet PO (06:21)
[2024-07-11] MEDS: PureFlow B 2K Dialysis Soln 1 BAG 6 BAG PF (12:40)
[2024-07-11] MEDS: Heparin 10,000 UNITS/10 ML Vial IV (12:40)
[2024-07-11] MEDS: 0.9% Normal Saline 1,000 ML IV.SOLN. 1000 ML OPERA.SITE (12:40)
[2024-07-11] MEDS: 0.9% Saline Lock 10 ML Syringe IV (12:40)
--- NOTE | 2024-07-11 13:03 | DCINST_ITS ---
Discharge Instructions Diet Discharge Diet: Renal Diet DC O2, CPAP, BIPAP needs RN Home O2 Qualification: Home O2 Qualification: Is the patient on home oxygen Yes 07/10/24 07:21 Home O2 Qualification: AT REST 1-Pulse Ox at rest 95 07/10/24 07:21 1- Oxygen flow rate at rest 3 07/10/24 07:21 Home O2 Qualification: WITH AMBULATION 1- Pulse Ox with ambulation 92 07/10/24 07:21 1- Oxygen Flow Rate with 3 07/10/24 07:21 ambulation Home O2 Discharge instructions: Yes Type of respiratory needs?: Oxygen (3) Oxygen frequency: Continuous Continuous oxygen liters per minute: 3 Dressing / Incision Discharge Activity: - (Increase activity as tolerated) Follow Up Care Test Results: Test results from this visit will be discussed in further detail at your follow- up appointment, if applicable. Discharge Plan Admission Admit Date/Time: 07/08/24 05:59 Primary Reason for Your Visit: COB, COPD exacerbation and pneumonia Attending Provider: Diana Santillan Primary Care Provider: Julio Draper Consulting Providers: January Perez; Adelia Lawson; Mihai Izaguirre Instructions Patient Instructions: RSV (Respiratory Syncytial Virus) Additional Instructions / Restrictions: DISCHARGE INSTRUCTIONS PLEASE READ *Please take this with you to your next doctors appointment* -You will be discharged with 1 more dose of Levaquin to be taken on 07/12 -You also be discharged with 5 days of prednisone - You were found to incidentally have a right upper lobe lung nodule, it is recommended that you follow-up with your primary care physician as you will likely need repeat CT imaging or they may consider referral to pulmonology -Please continue dialysis as previously scheduled on discharge -Please call your primary care provider's office upon discharge to schedule a hospital follow up within 1 week. -For any concerning signs or symptoms please call 911 or proceed to the nearest emergency department Discharge Orders/Prescriptions Prescriptions: New levofloxacin 500 mg Tablet 500 mg PO Q48@0600 1 Days Qty: 1 0RF Rx Instructions: Take one more dose 07/12 prednisone 20 mg tablet 40 mg PO DAILY 5 Days Qty: 10 0RF Continued nitroglycerin 0.4 mg tablet, sublingual 0.4 mg sublingual Q5-15M PRN (Reason: chest pain) Rx Instructions: do not exceed 3 doses per episode polyethylene glycol 3350 17 gram/dose powder 17 g PO DAILY PRN (Reason: constipation) isosorbide mononitrate 60 mg tablet extended release 24 hr 60 mg PO DAILY ipratropium-albuterol 0.5 mg-3 mg(2.5 mg base)/3 mL solution for nebulization 3 ml inhalation Q6H PRN (Reason: shortness of breath or wheezing) atorvastatin 40 mg tablet 40 mg PO QHS buspirone 10 mg tablet 10 mg PO BID acetaminophen [Tylenol] 325 mg capsule 650 mg PO Q6H PRN (Reason: pain) ondansetron 4 mg tablet,disintegrating 4 mg PO Q8H PRN (Reason: nausea and vomiting) albuterol sulfate [Ventolin HFA] 1 INHALER inhaler 2 puff inhalation Q4H PRN PRN (Reason: Shortness Of Breath) Patient Comments: shortness of breath montelukast 10 MG tablet 10 mg PO QHS fluticasone propionate 50 mcg/actuation spray,suspension 2 spray INTRANASAL QHS Patient Comments: Use 1 [place] in each nostril once daily. Breztri Aerosphere 160-9-4.8 mcg/actuation HFA aerosol inhaler 2 inh inhalation BID pantoprazole [Protonix] 40 mg tablet,delayed release (DR/EC) 40 mg PO BID Rx Instructions: 40 mg twice daily for 3 months and then once daily. Galina-Jose Elias 0.8 mg tablet 1 tab PO DAILY oxycodone 5 mg tablet 5 mg PO Q8H PRN (Reason: pain) 4 Days Qty: 12 0RF sucralfate 1 gram tablet 1 g PO DAILY Referrals / Follow Up: Julio Draper MD [Primary Care Provider] - Within 1 Week Disposition Disposition (needs filled in before D/C Order can be placed): Home Health Service
--- NOTE | 2024-07-11 13:08 | PCM.DC.SUM ---
Providers Date of Admission: 07/08/24 Date of Discharge: 07/11/24 Primary Care Physician: Dr. Julio Draper MD Consultations 07/08/24 06:51 Consult: Nephrology Routine Consulting Provider: Adelia Lawson Reason for Consult: ESRD EMERGENT Consult: No MD Notified: Yes Date Notified: 07/08/24 Time Notified: 06:02 Method of Notification: Answering Service Reason For Visit: ACUTE EXACERBATION OF COPD 2/2 RSV PNA Diagnosis Discharge Diagnosis (1) COPD exacerbation: Status: Chronic Code(s): J44.1 - Chronic obstructive pulmonary disease with (acute) exacerbation Plan # COPD exacerbation secondary to RSV # Concurrent right upper lobe pneumonia # COPD with chronic hypoxic respiratory failure on 3 L home O2 # End-stage renal disease on hemodialysis # Chronic heart failure with preserved ejection fraction # GERD # Right upper lobe nodule # Anxiety Medications at Discharge Home Medications albuterol sulfate 90 mcg/actuation aerosol inhaler (Ventolin HFA) 2 puff inhalation Q4H PRN PRN Shortness Of Breath 08/28/15 montelukast 10 mg tablet 10 mg PO QHS ALLERGIES 02/25/18 fluticasone propionate 50 mcg/actuation nasal spray,suspension 2 spray intranasal QHS ALLERGIES 05/01/21 atorvastatin 40 mg tablet 40 mg PO QHS 09/23/23 ipratropium 0.5 mg-albuterol 3 mg (2.5 mg base)/3 mL nebulization soln 3 ml inhalation Q6H PRN shortness of breath or wheezing 09/23/23 isosorbide mononitrate 60 mg tablet,extended release 24 hr 60 mg PO DAILY 09/23/23 nitroglycerin 0.4 mg sublingual tablet 0.4 mg sublingual Q5-15M PRN chest pain 09/23/23 polyethylene glycol 3350 17 gram/dose oral powder 17 g PO DAILY PRN constipation 09/23/23 buspirone 10 mg tablet 10 mg PO BID 09/27/23 budesonide 160 mcg-glycopyr 9 mcg-formot 4.8 mcg/actuation HFA inhaler (Breztri Aerosphere) 2 inh inhalation BID 02/22/24 acetaminophen 325 mg capsule (Tylenol) 650 mg PO Q6H PRN pain 04/19/24 ondansetron 4 mg disintegrating tablet 4 mg PO Q8H PRN nausea and vomiting 10/17/24 pantoprazole 40 mg tablet,delayed release (Protonix) 40 mg PO BID GERD 05/22/24 vitamin B complex-vitamin C-folic acid 0.8 mg tablet (Galina-Jose Elias) 1 tab PO DAILY 05/22/24 oxycodone 5 mg tablet 5 mg PO Q8H PRN pain 4 days #12 tabs 06/05/24 sucralfate 1 gram tablet 1 g PO DAILY GI 07/08/24 levofloxacin 500 mg tablet 500 mg PO Q48@0600 1 day #1 TAB 07/11/24 prednisone 20 mg tablet 40 mg (2 x 20 mg) PO DAILY 5 days #10 tabs 07/11/24 Hospital Course Procedures - (HD) Summary of Care Provided Minutes Spent on Discharge: 31 Hospital Course: # COPD exacerbation secondary to RSV # Concurrent right upper lobe pneumonia # COPD with chronic hypoxic respiratory failure on 3 L home O2 # End-stage renal disease on hemodialysis # Chronic heart failure with preserved ejection fraction # GERD # Right upper lobe nodule # Anxiety 69-year-old female with history as above who presented [facility] ED 07/08/2024 for increasing shortness of breath especially with exertion. Given patient's significance of symptoms she was admitted for further monitoring and treatment. CT suggestive of possible atypical pneumonia with possible bacterial component and she was also found to have RSV. She was treated with Levaquin and steroids as well as nebs. Patient slowly improved and work of breathing improved and she was able to maintain on her baseline oxygen at 3 L. On day of discharge patient feeling much better with no new or acute complaints and agreeable to discharge home. Discharge instructions as follows: DISCHARGE INSTRUCTIONS PLEASE READ *Please take this with you to your next doctors appointment* -You will be discharged with 1 more dose of Levaquin to be taken on 07/12 -You also be discharged with 5 days of prednisone - You were found to incidentally have a right upper lobe lung nodule, it is recommended that you follow-up with your primary care physician as you will likely need repeat CT imaging or they may consider referral to pulmonology -Please continue dialysis as previously scheduled on discharge -Please call your primary care provider's office upon discharge to schedule a hospital follow up within 1 week. -For any concerning signs or symptoms please call 911 or proceed to the nearest emergency department Physical Exam Narrative General: Alert, oriented HEENT: Atraumatic, normocephalic Eyes: Anicteric, normal conjunctiva, extraocular movements grossly intact Neck: Supple Respiratory: Improving respiratory effort, lungs with better airflow than yesterday Cardiovascular: Regular rate GI: Soft, nontender, nondistended Extremities: No edema Musculoskeletal: Moving all extremities Neuro: No overt focal neurological deficits Skin: No rashes appreciated Psych: Cooperative Weight / BMI Weight Weight: 62.1 kg Body Mass Index (BMI) 23.3 ABG / Lab / Microbiology Data 07/11/24 03:59 07/11/24 03:59 Laboratory: Laboratory Results - last 24 hr 07/11/24 03:59: WBC 9.8, RBC 3.50 L, Hgb 10.5 L, Hct 33.2 L, MCV 94.9, MCH 30.0, MCHC 31.6 L, RDW Std Deviation 45.6 H, RDW Coeff of Laly 13.2, Plt Count 238, MPV 10.2, Sodium 136, Potassium 4.4, Chloride 103, Carbon Dioxide 26.0, Anion Gap 7, BUN 67 H, Creatinine 3.90 H, Estim Creat Clear Calc 11.92, Est GFR (MDRD) Af Amer 15 L, Est GFR (MDRD) Non-Af 12 L, BUN/Creatinine Ratio 17.2, Glucose 90, Calcium 9.0 Microbiology: Microbiology 07/08/24 22:50 Sputum, Expectorated/Coughed Gram Stain - Final 07/08/24 22:50 Sputum, Expectorated/Coughed Respiratory Culture - Final Presumptive C albicans 07/09/24 18:57 Urine, Clean Catch Legionella Antigen - Final 07/09/24 18:57 Urine, Clean Catch Streptococcus pneumoniae Antigen (M - Final 07/08/24 02:45 Mucosa - Nose SARS-CoV-2, Influenza & RSV (PCR) - Final RSV D/C Instructions Discharge Diet: Renal Diet DC O2, CPAP, BIPAP Needs RN Home O2 Qualification: Home O2 Qualification: Is the patient on home oxygen Yes 07/10/24 07:21 Home O2 Qualification: AT REST 1-Pulse Ox at rest 95 07/10/24 07:21 1- Oxygen flow rate at rest 3 07/10/24 07:21 Home O2 Qualification: WITH AMBULATION 1- Pulse Ox with ambulation 92 07/10/24 07:21 1- Oxygen Flow Rate with 3 07/10/24 07:21 ambulation Home O2 Discharge instructions: Yes Type of respiratory needs?: Oxygen (3) Oxygen frequency: Continuous Continuous oxygen liters per minute: 3 DC home with Oxygen: Yes Home O2 MD Review: I have reviewed the oxygen testing, and the patient qualifies for home oxygen equipment and portability. The patient is mobile in the home and the community. Meaningful Use Info Meaningful Use Meaningful Use Diagnoses (Choose all that apply): None applicable Ischemic Stroke Statin Dosing Therapy Reference: STATIN DOSE THERAPY REFERENCE: * Patients > 75 years receive moderate or high dose statin therapy. * Patients 75 years or YOUNGER should receive HIGH intensity statin dose unless contraindicated. You will be required to document reason for non-treatment if statin daily dose does not meet guidelines. HIGH DOSE STATIN THERAPY DAILY Atorvastatin > than or = to 40 mg Rosuvastatin > than or = to 20 mg Amlodipine + Atorvastatin > than or = to 2.5/40 mg Ezetimibe + Simvastatin 10/80 mg Simvastatin 80mg Discharge Plan Admission Admit Date/Time: 07/08/24 05:59 Primary Reason for Your Visit: COB, COPD exacerbation and pneumonia Attending Provider: Diana Santillan Primary Care Provider: Julio Draper Consulting Providers: January Perez; Adelia Lawson; Mihai Izaguirre Instructions Patient Instructions: RSV (Respiratory Syncytial Virus) Additional Instructions / Restrictions: DISCHARGE INSTRUCTIONS PLEASE READ *Please take this with you to your next doctors appointment* -You will be discharged with 1 more dose of Levaquin to be taken on 07/12 -You also be discharged with 5 days of prednisone - You were found to incidentally have a right upper lobe lung nodule, it is recommended that you follow-up with your primary care physician as you will likely need repeat CT imaging or they may consider referral to pulmonology -Please continue dialysis as previously scheduled on discharge -Please call your primary care provider's office upon discharge to schedule a hospital follow up within 1 week. -For any concerning signs or symptoms please call 911 or proceed to the nearest emergency department Discharge Orders/Prescriptions Prescriptions: New levofloxacin 500 mg Tablet 500 mg PO Q48@0600 1 Days Qty: 1 0RF Rx Instructions: Take one more dose 1/9 prednisone 20 mg tablet 40 mg PO DAILY 5 Days Qty: 10 0RF Continued nitroglycerin 0.4 mg tablet, sublingual 0.4 mg sublingual Q5-15M PRN (Reason: chest pain) Rx Instructions: do not exceed 3 doses per episode polyethylene glycol 3350 17 gram/dose powder 17 g PO DAILY PRN (Reason: constipation) isosorbide mononitrate 60 mg tablet extended release 24 hr 60 mg PO DAILY ipratropium-albuterol 0.5 mg-3 mg(2.5 mg base)/3 mL solution for nebulization 3 ml inhalation Q6H PRN (Reason: shortness of breath or wheezing) atorvastatin 40 mg tablet 40 mg PO QHS buspirone 10 mg tablet 10 mg PO BID acetaminophen [Tylenol] 325 mg capsule 650 mg PO Q6H PRN (Reason: pain) ondansetron 4 mg tablet,disintegrating 4 mg PO Q8H PRN (Reason: nausea and vomiting) albuterol sulfate [Ventolin HFA] 1 INHALER inhaler 2 puff inhalation Q4H PRN PRN (Reason: Shortness Of Breath) Patient Comments: shortness of breath montelukast 10 MG tablet 10 mg PO QHS fluticasone propionate 50 mcg/actuation spray,suspension 2 spray INTRANASAL QHS Patient Comments: Use 1 [place] in each nostril once daily. Breztri Aerosphere 160-9-4.8 mcg/actuation HFA aerosol inhaler 2 inh inhalation BID pantoprazole [Protonix] 40 mg tablet,delayed release (DR/EC) 40 mg PO BID Rx Instructions: 40 mg twice daily for 3 months and then once daily. Galina-Jose Elias 0.8 mg tablet 1 tab PO DAILY oxycodone 5 mg tablet 5 mg PO Q8H PRN (Reason: pain) 4 Days Qty: 12 0RF sucralfate 1 gram tablet 1 g PO DAILY Referrals / Follow Up: Julio Draper MD [Primary Care Provider] - Within 1 Week Disposition Disposition (needs filled in before D/C Order can be placed): Home Health Service Charges/Coding Visit Charges Inpatient E&M: 77643 Disch Hosp >30min
[2024-07-11] MEDS: predniSONE 20 MG Tablet 40 MG PO (13:14)
[2024-07-11] MEDS: guaiFENesin 1,200 MG Tablet 1200 MG PO (13:15)
[2024-07-11] MEDS: Isosorbide Mononitrate 60 MG Tablet PO (13:15)
[2024-07-11] MEDS: busPIRone 5 MG Tablet 10 MG PO (13:15)
[2024-07-11] MEDS: Pantoprazole Sodium 40 MG Tablet PO (13:15)
[2024-07-11] MEDS: Folic Acid/Vitamin B Comp W-C 1 Capsule 1 CAP PO (13:16)
--- NOTE | 2024-07-11 14:03 | PCM.DC ---
Discharge Instructions Diet Discharge Diet: Renal Diet DC O2, CPAP, BIPAP needs RN Home O2 Qualification: Home O2 Qualification: Is the patient on home oxygen Yes 07/11/24 13:55 Home O2 Qualification: AT REST 1-Pulse Ox at rest 88 07/11/24 13:55 1- Oxygen flow rate at rest 2 07/11/24 13:55 2-Pulse Ox at rest 95 07/11/24 13:55 2- Oxygen flow rate at rest 3 07/11/24 13:55 Home O2 Qualification: WITH AMBULATION 1- Pulse Ox with ambulation 88 07/11/24 13:55 1- Oxygen Flow Rate with 3 07/11/24 13:55 ambulation 2- Pulse Ox with ambulation 91 07/11/24 13:55 2- Oxygen Flow Rate with 4 07/11/24 13:55 ambulation Home O2 Discharge instructions: Yes Type of respiratory needs?: Oxygen (3) Oxygen frequency: Continuous Continuous oxygen liters per minute: 3 and With Ambulation Oxygen liters per minute during Ambulation: 4 Dressing / Incision Discharge Activity: - (Increase activity as tolerated) Follow Up Care Test Results: Test results from this visit will be discussed in further detail at your follow-up appointment, if applicable. Discharge Plan Admission Admit Date/Time: 07/08/24 05:59 Primary Reason for Your Visit: COB, COPD exacerbation and pneumonia Attending Provider: Diana Santillan Primary Care Provider: Julio Draper Consulting Providers: January Perez; Adelia Lawson; Mihai Izaguirre Instructions Patient Instructions: RSV (Respiratory Syncytial Virus) Additional Instructions / Restrictions: DISCHARGE INSTRUCTIONS PLEASE READ *Please take this with you to your next doctors appointment* -You will be discharged with 1 more dose of Levaquin to be taken on 07/12 -You also be discharged with 5 days of prednisone - You were found to incidentally have a right upper lobe lung nodule, it is recommended that you follow-up with your primary care physician as you will likely need repeat CT imaging or they may consider referral to pulmonology -Please continue dialysis as previously scheduled on discharge -Please call your primary care provider's office upon discharge to schedule a hospital follow up within 1 week. -For any concerning signs or symptoms please call 911 or proceed to the nearest emergency department Discharge Orders/Prescriptions Prescriptions: New levofloxacin 500 mg Tablet 500 mg PO Q48@0600 1 Days Qty: 1 0RF Rx Instructions: Take one more dose 07/12 prednisone 20 mg tablet 40 mg PO DAILY 5 Days Qty: 10 0RF Continued nitroglycerin 0.4 mg tablet, sublingual 0.4 mg sublingual Q5-15M PRN (Reason: chest pain) Rx Instructions: do not exceed 3 doses per episode polyethylene glycol 3350 17 gram/dose powder 17 g PO DAILY PRN (Reason: constipation) isosorbide mononitrate 60 mg tablet extended release 24 hr 60 mg PO DAILY ipratropium-albuterol 0.5 mg-3 mg(2.5 mg base)/3 mL solution for nebulization 3 ml inhalation Q6H PRN (Reason: shortness of breath or wheezing) atorvastatin 40 mg tablet 40 mg PO QHS buspirone 10 mg tablet 10 mg PO BID acetaminophen [Tylenol] 325 mg capsule 650 mg PO Q6H PRN (Reason: pain) ondansetron 4 mg tablet,disintegrating 4 mg PO Q8H PRN (Reason: nausea and vomiting) albuterol sulfate [Ventolin HFA] 1 INHALER inhaler 2 puff inhalation Q4H PRN PRN (Reason: Shortness Of Breath) Patient Comments: shortness of breath montelukast 10 MG tablet 10 mg PO QHS fluticasone propionate 50 mcg/actuation spray,suspension 2 spray INTRANASAL QHS Patient Comments: Use 1 [place] in each nostril once daily. Breztri Aerosphere 160-9-4.8 mcg/actuation HFA aerosol inhaler 2 inh inhalation BID pantoprazole [Protonix] 40 mg tablet,delayed release (DR/EC) 40 mg PO BID Rx Instructions: 40 mg twice daily for 3 months and then once daily. Galina-Jose Elias 0.8 mg tablet 1 tab PO DAILY oxycodone 5 mg tablet 5 mg PO Q8H PRN (Reason: pain) 4 Days Qty: 12 0RF sucralfate 1 gram tablet 1 g PO DAILY Referrals / Follow Up: Julio Draper MD [Primary Care Provider] - 07/18/24 10:00 am Disposition Disposition (needs filled in before D/C Order can be placed): Home Health Service
--- NOTE | 2024-07-11 18:24 | PCM.PN.REN ---
Subjective Subjective seen on HD Objective Data Objective Data Vital Signs: Vital Signs Temp Pulse Resp BP Pulse Ox O2 Del Method O2 Flow Rate 97.0 F L 88 18 128/77 H 95 Nasal Cannula 3 07/11/24 14:30 07/11/24 15:02 07/11/24 15:02 07/11/24 14:30 07/11/24 14:30 07/11/24 14:30 07/11/24 14:30 Oxygen Flow Rate (L/min) 3 Oxygen Delivery Method Nasal Cannula Weight: 62.1 kg Body Mass Index (BMI) 23.3 Intake & Output: Intake and Output for Last 24 Hours 07/09/24 07/10/24 07/11/24 23:59 23:59 23:59 Intake Total 240 / 240 480 / 480 120 / 120 Output Total 800 / 800 2059 Balance -560 / -560 480 / 480 -1940 / -1940 Lab / Micro Data 07/11/24 03:59 07/11/24 03:59 Labs: Laboratory Results - last 24 hr 07/11/24 03:59: WBC 9.8, RBC 3.50 L, Hgb 10.5 L, Hct 33.2 L, MCV 94.9, MCH 30.0, MCHC 31.6 L, RDW Std Deviation 45.6 H, RDW Coeff of Laly 13.2, Plt Count 238, MPV 10.2, Sodium 136, Potassium 4.4, Chloride 103, Carbon Dioxide 26.0, Anion Gap 7, BUN 67 H, Creatinine 3.90 H, Estim Creat Clear Calc 11.92, Est GFR (MDRD) Af Amer 15 L, Est GFR (MDRD) Non-Af 12 L, BUN/Creatinine Ratio 17.2, Glucose 90, Calcium 9.0 Micro: Microbiology 07/08/24 22:50 Sputum, Expectorated/Coughed Gram Stain - Final 07/08/24 22:50 Sputum, Expectorated/Coughed Respiratory Culture - Final Presumptive C albicans 07/09/24 18:57 Urine, Clean Catch Legionella Antigen - Final 07/09/24 18:57 Urine, Clean Catch Streptococcus pneumoniae Antigen (M - Final 07/08/24 02:45 Mucosa - Nose SARS-CoV-2, Influenza & RSV (PCR) - Final RSV Physical Exam Narrative Alert awake oriented x 3 no obvious distress no pallor no icterus no JVD s1s2 no murmurs lungs clear abdomen soft no organomegaly no edema no cyanosis Assessment & Plan Assessment/Plan (1) End-stage renal disease (ESRD): PLAN: seen on HD today. UF 2-3 L as tolerated. electrolytes are ok. possible dc after HD today
== END 2024-07-11 17:27 | disposition home health service (06) | DRG 202 ==
LOC: ED 06:11 → ICU 06:14 → PCU 07-10 18:36
PROVIDERS: Family Medicine; Admitting Provider Internal Medicine; Emergency Provider Emergency Medicine; PCP Internal Medicine; Visit Provider Internal Medicine
DX: J20.5 Acute bronchitis due to respiratory syncytial virus (principal); J15.9 Unspecified bacterial pneumonia; J18.9 Pneumonia, unspecified organism; N18.6 End stage renal disease; I13.2 Hypertensive heart and chronic kidney disease with heart failure and with stage 5 chronic kidney disease, or end stage renal disease; J44.0 Chronic obstructive pulmonary disease with (acute) lower respiratory infection; I50.32 Chronic diastolic (congestive) heart failure; J96.11 Chronic respiratory failure with hypoxia; J44.1 Chronic obstructive pulmonary disease with (acute) exacerbation; D63.1 Anemia in chronic kidney disease; F32.A Depression, unspecified; I48.91 Unspecified atrial fibrillation; Z99.2 Dependence on renal dialysis; E78.5 Hyperlipidemia, unspecified; J30.2 Other seasonal allergic rhinitis; K21.9 Gastro-esophageal reflux disease without esophagitis; I25.10 Atherosclerotic heart disease of native coronary artery without angina pectoris; E87.6 Hypokalemia; J06.9 Acute upper respiratory infection, unspecified; F41.9 Anxiety disorder, unspecified; I25.2 Old myocardial infarction; R91.1 Solitary pulmonary nodule; Z87.891 Personal history of nicotine dependence; Z99.81 Dependence on supplemental oxygen; Z79.899 Other long term (current) drug therapy; Z79.51 Long term (current) use of inhaled steroids; Z96.619 Presence of unspecified artificial shoulder joint; Z90.49 Acquired absence of other specified parts of digestive tract; G89.29 Other chronic pain; Z79.891 Long term (current) use of opiate analgesic
CPT/HCPCS: 36415; 71250; 80048; 80053; 83735; 83880; 84100; 85025; 85027; 87070; 87205; 87449; 87631; 90937; 93005; 94640; 94668; 97116; 97162; 97165; 97530; 97535; 99252; 99285; A4216; G0257; G0463; J1940

== ENCOUNTER 2024-07-23 07:15 | Inpatient (IN) | payer MEDICARE, OTHER, SELFPAY ==
[2024-07-23] VITALS (25 sets, daily range): BP systolic 90–243; BP diastolic 47–98; PULSE 64–136; RESP 16–24; TEMP 35.6–37.3; O2SAT 92–100; BMI 27.0; BMI 23.8; BMI 24.0
--- NOTE | 2024-07-23 07:22 | EKG12_ITS ---
Test Reason : SOB Blood Pressure : */* mmHG Vent. Rate : 127 BPM Atrial Rate : 127 BPM P-R Int : 168 ms QRS Dur : 70 ms QT Int : 274 ms P-R-T Axes : 45 98 47 degrees QTcB Int : 398 ms Sinus tachycardia with Premature supraventricular complexes and Fusion complexes Possible Left atrial enlargement Rightward axis Septal infarct , age undetermined Abnormal ECG Confirmed by LAINA DORANTES, SAAD ([id number]), editorial director RACHEL APARICIO ([id number]) on 07/31/2024 6:04:47 AM Referred By: DEEJAY Confirmed By: SAAD MARINA MD
--- NOTE | 2024-07-23 07:37 | RAD_ITS ---
STUDY: X-RAY CHEST REASON FOR EXAM: Female, 69 years old. Chest pain TECHNIQUE: Single AP portable view of the chest. COMPARISON: Comparison is made with prior study dated July 03, 2024. FINDINGS: A right-sided double lumen catheter seen with the tip in the right atrium. EKG electrodes are seen. Patchy infiltrate in the right lower lobe. Stable linear increased markings at the left lung base suggestive of developing atelectasis and/or scarring. Blunting of the right costophrenic angle. Mild vascular congestion. There is mild cardiac enlargement. Normal mediastinum and katelyn. Normal visualized pulmonary arteries. There is atherosclerotic calcification of the aortic arch with tortuosity. There are degenerative changes of the visualized thoracic spine. Partial right shoulder replacement. There is no demonstrated abnormality of the visualized soft tissue structures of the upper abdomen. RAD/Chest 1 View (Portable) IMPRESSION: Right lower lobe infiltrate. Blunting of the right costophrenic angle. Mild vascular congestion. Electronically Signed: Michael Gaxiola MD at 8:53 EST ,
--- NOTE | 2024-07-23 07:37 | EKG12_ITS ---
Test Reason : REPEAT/CP Blood Pressure : */* mmHG Vent. Rate : 124 BPM Atrial Rate : 124 BPM P-R Int : 178 ms QRS Dur : 70 ms QT Int : 288 ms P-R-T Axes : 92 89 49 degrees QTcB Int : 413 ms Sinus tachycardia Possible Left atrial enlargement Septal infarct , age undetermined Abnormal ECG Confirmed by LAINA DORANTES, SAAD ([id number]), editor department RACHEL APARICIO ([id number]) on 07/31/2024 6:01:32 AM Referred By: Confirmed By: SAAD MARINA MD
--- NOTE | 2024-07-23 07:39 | ED.VIS.DYS ---
HPI History of Present Illness Chief Complaint: Shortness of Breath Informant: patient and spouse/S.O. Onset/Context/Timing Onset: Today and Yesterday Timing: Continuous Current Severity: Moderate Maximum Severity: Moderate Worsened by: Coughing Relieved by: Oxygen Associated Symptoms cough and white sputum; Negative for fever Chest Pain: Positive for None Narrative Narrative: 69-year-old female history of COPD, end-stage renal disease dialysis last dialysis was Tuesday. Prior history of TN and A-fib not on blood thinners. States she has been short of breath since last evening. Denies any fever or chest pain. No history of DVT or PE. She is on home O2 normally at 3 to 4 L. She has a cough of white sputum. States she had recent hospitalization the last 2 weeks due to RSV and pneumonia. PE Risk Factors: Negative for Cancer, OCP + Smoking + > 35, Prior DVT or PE, Recent surgery or Recent travel Prior similar symptoms: Yes Recent Illness/Hospitalization: Yes PFSH PFS Medical History Post-menopausal History of steroid therapy History of renal dialysis Blackout Gastric reflux Emphysema, unspecified Shortness of breath on exertion Normal Holter exam History of echocardiogram Hypertension Cardiology follow-up encounter History of heart attack History of atrial fibrillation Hemodialysis catheter malfunction Former cigarette smoker GERD (gastroesophageal reflux disease) Hyperlipidemia History of GI bleed Pleural effusion ESRD (end stage renal disease) on dialysis Essential hypertension NSTEMI (non-ST elevated myocardial infarction) EARNEST (acute kidney injury) Hx of ulcer disease Former smoker Atrial fibrillation Elevated blood pressure reading without diagnosis of hypertension Chronic hypoxemic respiratory failure Acute bronchospasm Acute exacerbation of chronic obstructive pulmonary disease Empyema of pleural space Syncope Bleeding ulcer Anemia requiring transfusions Lung nodules Pleurisy On home oxygen therapy Migraines Hyperglycemia Elevated serum creatinine Sinus tachycardia Fever and chills Dyspnea on exertion Acute bronchospasm COPD exacerbation Leukocytosis Community acquired pneumonia Anxiety Benign essential tremor Former tobacco use Pneumonia due to COVID-19 virus Asthma COPD (chronic obstructive pulmonary disease) Tobacco use Tremor Benign essential hypertension Home Medications ?Medication ?Instructions ?Recorded ?Last Taken ?Type albuterol sulfate 90 mcg/actuation 2 puff inhalation Q4H PRN PRN 08/28/15 07/23/24 History aerosol inhaler (Ventolin HFA) Shortness Of Breath montelukast 10 mg tablet 10 mg PO QHS ALLERGIES 02/25/18 07/22/24 History fluticasone propionate 50 2 spray intranasal QHS ALLERGIES 05/01/21 07/22/24 History mcg/actuation nasal spray,suspension atorvastatin 40 mg tablet 40 mg PO QHS 09/23/23 07/22/24 History ipratropium 0.5 mg-albuterol 3 mg 3 ml inhalation Q6H PRN shortness 09/23/23 07/23/24 History (2.5 mg base)/3 mL nebulization of breath or wheezing soln isosorbide mononitrate 60 mg 60 mg PO DAILY 09/23/23 07/22/24 History tablet,extended release 24 hr nitroglycerin 0.4 mg sublingual 0.4 mg sublingual Q5-15M PRN chest 09/23/23 Unknown History tablet pain polyethylene glycol 3350 17 17 g PO DAILY PRN constipation 09/23/23 Unknown History gram/dose oral powder buspirone 10 mg tablet 10 mg PO BID 09/27/23 07/22/24 History budesonide 160 mcg-glycopyr 9 2 inh inhalation BID 02/22/24 07/23/24 History mcg-formot 4.8 mcg/actuation HFA inhaler (Breztri Aerosphere) ondansetron 4 mg disintegrating 4 mg PO Q8H PRN nausea and vomiting 04/19/24 Unknown History tablet pantoprazole 40 mg tablet,delayed 40 mg PO BID GERD 05/22/24 07/22/24 History release (Protonix) vitamin B complex-vitamin C-folic 1 tab PO DAILY 05/22/24 07/22/24 History acid 0.8 mg tablet (Galina-Jose Elias) sucralfate 1 gram tablet 1 g PO DAILY GI 07/08/24 07/22/24 History prednisone 20 mg tablet 40 mg (2 x 20 mg) PO DAILY 5 days 07/11/24 07/22/24 Rx #10 tabs acetaminophen 650 mg 650 mg PO Q6H PRN pain 07/23/24 Unknown History tablet,extended release (8 Hour Pain Reliever) cholecalciferol (vitamin D3) 25 25 mcg PO MOWEFR 07/23/24 07/20/24 History mcg (1,000 unit) capsule (Vitamin D3) Allergy/AdvReac Type Severity Reaction Status Date / Time cephalexin monohydrate (From Allergy Chest Verified 07/08/24 02:09 Keflex) tightness vancomycin AdvReac Mild Itching Verified 07/08/24 02:09 Family History Other Adopted Surgical History Hx of surgical procedure Hx of colonoscopy AVF (arteriovenous fistula) (03/13/24) Hx of colonoscopy History of cardiac catheterization Hx of total shoulder replacement Hx of chest tube placement Hx of esophagogastroduodenoscopy H/O bilateral salpingectomy History of herniorrhaphy Hx of tonsillectomy Hx of cholecystectomy Social History adopted: Yes household members: family housing: house Smoking Status: Former smoker how long ago did patient quit smokin years ago alcohol intake: never substance use type: does not use caffeine: Yes Type: coffee Number of servings: 1 ROS ROS ED ROS Narrative Shortness of breath. Cough. White sputum. No fever. No chest pain. No hemoptysis. Constitutional Constitutional ED: Denies chills or fever(s) Eyes Eyes: Denies blurry vision ENT ENT ED: Denies ear pain Cardiovascular Cardiovascular: Denies chest pain Respiratory/Chest Respiratory/Chest: Reports cough, dyspnea and sputum Gastrointestinal Gastrointestinal: Denies abdominal pain, constipation, diarrhea, melena, nausea or vomiting Genitourinary Genitourinary ED: Denies dysuria or hematuria Musculoskeletal Musculoskeletal: Denies arthralgias Integumentary Denies abscess Neurologic Neurologic: Denies headache(s) Psychiatric Psychiatric: Denies anxiety Endocrine Endocrinology: Denies cold intolerance or heat intolerance Hematologic/Lymphatic Hematologic/Lymphatic: Denies easy bleeding, easy bruising or lymphadenopathy Allergic/Immunologic Allergic/Immunologic ED: Denies mouth swelling, tongue swelling or urticaria EXAM Physical Exam Narrative Exam Narrative: 69-year-old female sitting upright in bed with oxygen. Vital signs she is tachycardic 129. Pulse ox is 98% on oxygen. Temperature is 99.2. She does not look septic or toxic. H EENT exam pupils round react light. Moist extremities. Neck nontender. Lungs coarse breath sounds throughout. No rales or rhonchi. No significant wheezing at this time. Prolonged expiratory phase. Heart tachycardic rate about 130 no murmur. Chest wall she has a Vas-Cath in the right side of her chest. No redness. Ribs and chest wall nontender. Back nontender. Abdomen soft nontender. Nondistended. No peritoneal signs. Moving all 4 extremities. Nontender no edema. Calves are nontender no cords. Normal strength. Neurologically she is awake and alert. Answering questions following commands. Has tremors. Const Vital Signs: 07/23/24 07:16 07/23/24 07:20 07/23/24 07:23 Temperature 96.1 F L 98.4 F Temperature Source Temporal Oral Pulse Rate 129 H Respiratory Rate 18 Respiratory Effort Short of Breath Respiratory Depth Shallow Respiratory Pattern Tachypnea Blood Pressure 154/83 H Blood Pressure Mean 106 Pulse Ox 98 Oxygen Delivery Method Bi-pap Room Air Oxygen Flow Rate (L/min) 15 07/23/24 07:28 07/23/24 07:48 07/23/24 08:01 Temperature 99.2 F H Temperature Source Axillary Pulse Rate 123 H Respiratory Rate 20 H Respiratory Effort Respiratory Depth Respiratory Pattern Blood Pressure Blood Pressure Mean Pulse Ox Oxygen Delivery Method Nasal Cannula Oxygen Flow Rate (L/min) 5 07/23/24 08:19 07/23/24 09:00 07/23/24 10:00 Temperature 99.1 F 98.9 F 98.9 F Temperature Source Oral Oral Oral Pulse Rate 136 H 123 H 112 H Respiratory Rate 24 H 18 18 Respiratory Effort Respiratory Depth Respiratory Pattern Blood Pressure 163/72 H 150/98 H 146/78 H Blood Pressure Mean 102 115 100 Pulse Ox 95 93 94 Oxygen Delivery Method Nasal Cannula Nasal Cannula Nasal Cannula Oxygen Flow Rate (L/min) 5 5 5 07/23/24 11:00 07/23/24 12:00 Temperature 98.9 F 98.9 F Temperature Source Oral Oral Pulse Rate 109 H 104 H Respiratory Rate 18 20 H Respiratory Effort Respiratory Depth Respiratory Pattern Blood Pressure 142/78 H 141/78 H Blood Pressure Mean 99 99 Pulse Ox 98 98 Oxygen Delivery Method Room Air Room Air Oxygen Flow Rate (L/min) Positive well nourished and well developed; Negative for obese, cachectic, contractures or unkempt General Appearance ED: well developed; Negative for unkempt, cachectic, contractures, NAD or pallor Nutritional Appearance: Negative for cachectic or obese HEENT Reports moist mucous membranes atraumatic; Negative for trauma or tenderness Eyes PERRL and EOMs intact bilaterally Neck no lymphadenopathy, supple, no meningeal signs and no JVD General: Negative for tenderness Lymph Lymphatic: Negative for other Resp No normal respiratory effort and No clear to auscultation bilaterally Resp Narrative: Coarse breath sounds bilaterally. Prolonged expiratory phase. Cardio regular rhythm, S1 normal heart sound, S2 normal heart sound and no murmurs; Negative for regular rate Rate: tachycardic GI non-tender, non-distended and no masses Palpation: soft; Negative for tender, guarding or rebound tenderness present Back/Spine no CVA tenderness and normal to inspection General Back: Negative for CVA tenderness or tenderness Extremity normal to inspection General Extremety ED: Negative for edema or tenderness General Extremity: Negative for edema Neuro oriented x3 and CN's II-XII intact bilaterally Sensorium / Orientation: alert, oriented to person, oriented to place and oriented to time; Negative for orientation impaired Speech: speech normal Motor Exam: strength 5/5 throughout Psych mental status grossly normal Appearance: Negative for unkempt Attitude: No agitated Mood & Affect: Negative for depressed, anxious or tearful Thought Process: normal thought process Skin no wounds and skin turgor normal General Skin Exam: Negative for jaundice or pallor Lesions: no lesions Rashes: no rashes Trauma: Negative for abrasion or laceration MDM MDM MDM Narrative Medical decision making narrative: 69-year-old female shortness of breath underlying history of COPD, dialysis prior TN and A-fib. EKG looks like sinus tachycardia. She will be treated with aerosols. Cardiac and respiratory workup. Squatted already given her an IM injection of Solu-Medrol as my understanding. Multiple repeat exams. The patient has had some improvement after the aerosols. CAT scan does not show a PE but shows a right lower lobe infiltrate. She was started on Rocephin and Zithromax. She believes she can take Rocephin. Hospitalist on page for admission. History & Record Review Discussion w/independent historian: Patient and Family Additional record(s) reviewed:: Prior inpatient record, Prior outpatient record, Prior ED visit, Prior labs and No prior records Lab Data Attestation: I reviewed the patient's lab results. Lab results narrative: CBC shows white count 29.4. H&H 11.7 and 36. Platelets 229. Chemistries show a gap of 7. BUN of 15 creatinine 3.35. History of dialysis. Glucose 105. Troponin 11. BNP 90. Chest x-ray chronic changes. Right-sided Vas-Cath. CAT scan shows right lower lobe infiltrate. Labs: Laboratory Results - last 24 hr 07/23/24 07/23/24 07/23/24 07:50 08:42 11:38 WBC 29.4 H RBC 3.86 L Hgb 11.7 L Hct 36.9 L MCV 95.6 MCH 30.3 MCHC 31.7 L RDW Std Deviation 45.7 H RDW Coeff of Laly 13.0 Plt Count 229 MPV 9.5 Immature Gran % (Auto) 0.600 Neut % (Auto) 91.7 H Lymph % (Auto) 4.6 L [place] % (Auto) 2.8 Eos % (Auto) 0.1 Baso % (Auto) 0.2 Absolute Neuts (auto) 27.0 H Absolute Lymphs (auto) 1.35 Nucleated RBC % 0 Differential Comment SCANNED D-Dimer Quant (PE/DVT) 1.55 H* Sodium 140 Potassium 5.0 Chloride 106 Carbon Dioxide 27.0 Anion Gap 7 BUN 52 H Creatinine 3.35 H Estim Creat Clear Calc 15.57 Est GFR (MDRD) Af Amer 18 L Est GFR (MDRD) Non-Af 15 L BUN/Creatinine Ratio 15.5 Glucose 105 Calcium 9.4 Troponin I High Sens 11 B-Natriuretic Peptide 90.6 Urine Color Yellow Urine Clarity Sl. Cloudy Urine pH 7.0 Ur Specific Rowe 1.010 Urine Protein 30 H Urine Glucose (UA) Normal Urine Ketones Negative Urine Occult Blood 50 H Urine Nitrite Negative Urine Bilirubin Negative Urine Urobilinogen Normal Ur Leukocyte Esterase Negative Urine RBC 0-5 SEEN Urine WBC 0 SEEN Ur Squamous Epith Cells 0-5 SEEN Urine Bacteria 0 SEEN Urine Mucus 0 SEEN Radiography Chest X-Ray - ED: 1 View, Read by ED Physician, Normal, Heart, Lungs, Mediastinum, Bony Structures, No Acute Disease and Chronic Changes Diagnostic Testing: Clinical Impression(s) from Imaging Studies Chest X-Ray 07/23/24 07:37 IMPRESSION: Right lower lobe infiltrate. Blunting of the right costophrenic angle. Mild vascular congestion. Electronically Signed: Michael Gaxiola MD at 8:53 EST , Chest CTA 07/23/24 09:22 IMPRESSION: No evidence of pulmonary embolism. Infiltration in the right lower lobe with the minimal pleural effusion. Electronically Signed: Michael Gaxiola MD at 10:08 EST , Chest x-ray, portable, single view interpreted by myself. Shows normal cardiac silhouette. No pneumonia. No effusions. Right-sided Vas-Cath. Chronic changes. Rhythm Strip Rhythm Strip: Sinus Tach Rate: 127 Ectopy: None EKG Initial EKG: Attestation: I personally reviewed and interpreted this EKG as follows: Interpretation: Sinus Rhythm Comments: Sinus tachycardia. Rate 127. No acute signs of TN or ischemia. Tremors. Artifact. Limited quality. Follow-up EKG: Attestation: I personally reviewed and interpreted this EKG as follows: Interpretation: No Acute Injury Pattern and Sinus Tachycardia Comments: Repeat EKG. At 8:34 AM. Sinus tachycardia. Rate 124. No acute signs of TN or ischemia. Critical Care Time Critical Care Time: Yes Critical care time (excluding procedures): 30-74 minutes, Including time spent:, Discussing w/Patient &/or Family/Expressive Music Therapist, Discussing w/Consultants, Arranging Admission or Transfer, Performing Direct Patient Care at Bedside and - (35 minutes.) Discharge Plan Dx/Rx/DC Orders Clinical Impression: Acute dyspnea, Acute exacerbation of chronic obstructive pulmonary disease, Pneumonia, Leukocytosis, End stage chronic kidney disease, History of atrial fibrillation Disposition Disposition: [facility]
[2024-07-23] MEDS: Ipratropium/Albuterol Sulfate 3 ML AMPUL.NEB INHALATION ×2 (07:47→20:04)
[2024-07-23] MEDS: Albuterol 2.5 MG/3 ML VIAL.NEB. INHALATION (07:47)
[2024-07-23 08:02] LABS: Absolute Lymphocyte Count 1.35 X10^3/uL (0.83-4.51); Basophil# 0.06 X10^3/uL; Basophil% 0.2 % (0-1); Eosinophil# 0.04 X10^3/uL; Eosinophils% 0.1 % (0-5); Hematocrit 36.9 % (37-47); Hemoglobin 11.7 g/dL (12.0-15.0); Lymphocyte # 1.35 X10^3/ul (0.83-4.51); Lymphocyte % 4.6 % (19-41); Mean Corp Hgb Conc 31.7 g/dL (32-36); Mean Corpuscular Hgb 30.3 pg (27.0-32.0); Mean Corpuscular Volume 95.6 fL (81-99); Mean Platelet Vol. 9.5 fl (6.2-12.0); Monocyte# 0.82 X10^3/uL; Monocyte% 2.8 % (0-10); NRBC Flagged by Analyzer 0 % (0-5); Neutrophil # 26.96 X10^3/uL (2.7-7.7); Neutrophil % 91.7 % (47-70); POSITIVE DIFFERENTIAL YES; Platelet Count 229 K/mm3 (150-450); RBC Distribution Width SD 45.7 fl (35.1-43.9); Red Blood Count 3.86 M/mm3 (4.2-5.4); White Blood Count 29.4 K/mm3 (4.4-11.0)
[2024-07-23 08:06] LABS: Differential Indicated SCAN CRITERIA MET
[2024-07-23 08:25] LABS: Anion Gap 7 (5-15); BUN 52 mg/dL (7-18); BUN/Creat Ratio 15.5 RATIO (10-20); Calcium,Total 9.4 mg/dL (8.5-10.1); Chloride 106 mmol/L (98-107); Creatinine, Serum 3.35 mg/dL (0.55-1.02); EST Glomerular Filtration Rate 15 mL/min (>60); Est Glom Filt Rate - Afr Amer 18 mL/min (>60); Estimated Creatinine Clearance 15.57 ml/min; Glucose 105 mg/dL (74-106); Sodium Level 140 mmol/L (136-145); Troponin-I HS 11 pg/mL (3.0-54.0)
[2024-07-23 08:28] LABS: Differential Comment SCANNED
[2024-07-23 08:29] LABS: BNP,B-Type NATRIURETIC PEPTIDE 90.6 pg/mL (0-100)
[2024-07-23 09:18] LABS: D-Dimer Quantitative (DVT/PE) 1.55 FEU/ug/m (0.27-0.49)
--- NOTE | 2024-07-23 09:22 | CT_ITS ---
STUDY: CTA CHEST REASON FOR EXAM: Female, 69 years old. Dyspnea and elevated d-dimer, copd, asthma, on dialysis RADIATION DOSAGE (If Supplied By Facility): CTDIvol = ( 14.77 ) mGy, DLP = ( 430.41 ) mGycm TECHNIQUE: The examination was performed with the intravenous administration of IV 100mL Isovue-370. Post-processing of the angiographic images was performed, with multiplanar reformation and 3D reconstruction. Individualized dose optimization techniques were used for this CT. COMPARISON: Comparison is made with prior study dated June 01, 2023 and July 08, 2024. FINDINGS: Normal enhancement of the main pulmonary artery and right and left pulmonary arteries. Normal enhancement of the bilateral peripheral pulmonary arteries. There is no demonstrated pulmonary embolism. There is aneurysmal dilatation of the ascending aorta. The transverse diameter of the ascending aorta measures 43.5 mm''s. There is no demonstrated aortic dissection. There are calcifications of the coronary arteries. Normal mediastinum. Normal hilar regions. Normal visualized trachea and bronchi. Hyperinflation. Emphysematous changes. Right lower lobe consolidation. Minimal right pleural effusion. Stable scarring at the right lung apex. Stable 8mm nodule in the lateral right upper lobe. There is a reticular nodular density in the posterior segment of the left lower lobe abutting the pleural surface. This may represent a focal area of scarring. Normal chest wall structures. There are degenerative changes of thoracic spine. Normal visualized upper abdomen. CT/CTA Chest W/WO Contrast IMPRESSION: No evidence of pulmonary embolism. Infiltration in the right lower lobe with the minimal pleural effusion. Electronically Signed: Michael Gaxiola MD at 10:[address] [facility] ,
[2024-07-23 11:41] LABS: Bacteria 0 SEEN /hpf (None Seen); Mucous, Urine 0 SEEN /hpf (<or=2+); White Blood Cells 0 SEEN /hpf (0-5)
[2024-07-23 11:43] LABS: Color, Urine Yellow (Yellow); Glucose, Dipstick Normal (Normal); Ketone-Dipstick Negative (Negative); Leukocyte Esterase-Dipstick Negative /ul (Negative); Nitrite-Dipstick Negative (Negative); Occult Blood-Urine 50 /ul (Negative); Protein-Dipstick 30 mg/dl (Negative); Urine Bilirubin Dipstick Negative (Negative); Urine Clarity Sl. Cloudy (Clear); Urine Urobilinogen Normal (Normal)
[2024-07-23 11:57] LABS: Red Blood Cells-Urine 0-5 SEEN /hpf (0-5); Squamous Epithelial Cells - UA 0-5 SEEN /hpf (5-10)
--- NOTE | 2024-07-23 12:39 | HP.PCM.HOS_ITS ---
HPI - General General Date of Admission: 07/23/24 Date of Service: 07/23/24 HPI Narrative SNEHA CARDENAS, is a 69 F with a PMH as outlined who presented via the ED on 07/23/2024 with complaint of shortness of breath. Patient states she got up to go to the bathroom and became very short of breath, saturating down in the 80s. She usually wears 4 to 5 L of oxygen at home and says she was discharged home on this after she was managed for RSV pneumonia and admitted to the hospital a couple of weeks ago. She was just discharged on 07/11/2024. She admitted to a cough which was productive. She denied any chest pain, lightheadedness or dizziness, nausea vomiting or any other symptoms. Review of systems otherwise negative. Vitals were blood pressure 154/47, pulse rate of 118, respiratory rate of 21 and oxygen saturation of 94% on room air. CBC showed hemoglobin of 11.7 WBC of 29.4 and platelets of 229. D-dimer was elevated at 1.55. Chemistry showed sodium of 140 with potassium of 5 and bicarb of 27 with creatinine of 3.35. Urinalysis showed no evidence of bacteria. CTA chest showed no evidence of PE and showed infiltrate in the right lower lobe with minimal pleural effusion. Chest x-ray has shown a right lower lobe infiltrate with blunting of the right costophrenic angle. She is being admitted to be managed for hypoxia due to right lower lobe pneumonia. FORMERLY [facility] Medical History Post-menopausal History of steroid therapy History of renal dialysis Blackout Gastric reflux Emphysema, unspecified Shortness of breath on exertion Normal Holter exam History of echocardiogram Hypertension Cardiology follow-up encounter History of heart attack History of atrial fibrillation Hemodialysis catheter malfunction Former cigarette smoker GERD (gastroesophageal reflux disease) Hyperlipidemia History of GI bleed Pleural effusion ESRD (end stage renal disease) on dialysis Essential hypertension NSTEMI (non-ST elevated myocardial infarction) EARNEST (acute kidney injury) Hx of ulcer disease Former smoker Atrial fibrillation Elevated blood pressure reading without diagnosis of hypertension Chronic hypoxemic respiratory failure Acute bronchospasm Acute exacerbation of chronic obstructive pulmonary disease Empyema of pleural space Syncope Bleeding ulcer Anemia requiring transfusions Lung nodules Pleurisy On home oxygen therapy Migraines Hyperglycemia Elevated serum creatinine Sinus tachycardia Fever and chills Dyspnea on exertion Acute bronchospasm COPD exacerbation Leukocytosis Community acquired pneumonia Anxiety Benign essential tremor Former tobacco use Pneumonia due to COVID-19 virus Asthma COPD (chronic obstructive pulmonary disease) Tobacco use Tremor Benign essential hypertension Home Medications ?Medication ?Instructions ?Recorded ?Last Taken ?Type albuterol sulfate 90 mcg/actuation 2 puff inhalation Q4H PRN PRN 08/28/15 07/23/24 History aerosol inhaler (Ventolin HFA) Shortness Of Breath montelukast 10 mg tablet 10 mg PO QHS ALLERGIES 02/25/18 07/22/24 History fluticasone propionate 50 2 spray intranasal QHS ALLERGIES 05/01/21 07/22/24 History mcg/actuation nasal spray,suspension atorvastatin 40 mg tablet 40 mg PO QHS 09/23/23 07/22/24 History ipratropium 0.5 mg-albuterol 3 mg 3 ml inhalation Q6H PRN shortness 09/23/23 07/23/24 History (2.5 mg base)/3 mL nebulization of breath or wheezing soln isosorbide mononitrate 60 mg 60 mg PO DAILY 09/23/23 07/22/24 History tablet,extended release 24 hr nitroglycerin 0.4 mg sublingual 0.4 mg sublingual Q5-15M PRN chest 09/23/23 Unknown History tablet pain polyethylene glycol 3350 17 17 g PO DAILY PRN constipation 09/23/23 Unknown History gram/dose oral powder buspirone 10 mg tablet 10 mg PO BID 09/27/23 07/22/24 History budesonide 160 mcg-glycopyr 9 2 inh inhalation BID 02/22/24 07/23/24 History mcg-formot 4.8 mcg/actuation HFA inhaler (Breztri Aerosphere) ondansetron 4 mg disintegrating 4 mg PO Q8H PRN nausea and vomiting 04/19/24 Unknown History tablet pantoprazole 40 mg tablet,delayed 40 mg PO BID GERD 05/22/24 07/22/24 History release (Protonix) vitamin B complex-vitamin C-folic 1 tab PO DAILY 05/22/24 07/22/24 History acid 0.8 mg tablet (Galina-Jose Elias) sucralfate 1 gram tablet 1 g PO DAILY GI 07/08/24 07/22/24 History prednisone 20 mg tablet 40 mg (2 x 20 mg) PO DAILY 5 days 07/11/24 07/22/24 Rx #10 tabs acetaminophen 650 mg 650 mg PO Q6H PRN pain 07/23/24 Unknown History tablet,extended release (8 Hour Pain Reliever) cholecalciferol (vitamin D3) 25 25 mcg PO MOWEFR 07/23/24 07/20/24 History mcg (1,000 unit) capsule (Vitamin D3) Allergy/AdvReac Type Severity Reaction Status Date / Time cephalexin monohydrate (From Allergy Chest Verified 07/08/24 02:09 Keflex) tightness vancomycin AdvReac Mild Itching Verified 07/08/24 02:09 Family History Other Adopted Surgical History Hx of surgical procedure Hx of colonoscopy AVF (arteriovenous fistula) (03/13/24) Hx of colonoscopy History of cardiac catheterization Hx of total shoulder replacement Hx of chest tube placement Hx of esophagogastroduodenoscopy H/O bilateral salpingectomy History of herniorrhaphy Hx of tonsillectomy Hx of cholecystectomy Social History adopted: Yes household members: family housing: house Smoking Status: Former smoker how long ago did patient quit smokin years ago alcohol intake: never substance use type: does not use caffeine: Yes Type: coffee Number of servings: 1 ROS Constitutional Constitutional: Reports chills, fatigue, malaise and weakness; Denies anorexia, change in weight, fever(s) or night sweats Eyes Eyes: Denies change in vision ENT HEENT: Denies dysphagia, headache(s) or sore throat Cardiovascular Cardiovascular: Reports dyspnea on exertion and rapid heart rate; Denies chest pain, edema, lightheadedness, orthopnea, palpitations, paroxysmal nocturnal dyspnea or syncope Respiratory/Chest Respiratory/Chest: Reports cough, dyspnea, productive cough, shortness of breath at rest, shortness of breath with exertion and wheezing; Denies excessive phlegm production or hemoptysis Gastrointestinal Gastrointestinal: Denies abdominal pain, constipation, diarrhea, nausea or vomiting Genitourinary Genitourinary: Denies burning urination Musculoskeletal Musculoskeletal: Denies arthralgias, back pain or joint pain Neurologic Neurologic: Denies confusion, dizziness, focal weakness or headache(s) Psychiatric Psychiatric: Denies anxiety Endocrine Endocrinology: Denies change in body appearance Vital Signs Vital Signs Vital Signs: 07/23/24 07:16 07/23/24 07:20 07/23/24 07:23 Temperature 96.1 F L 98.4 F Temperature Source Temporal Oral Pulse Rate 129 H Respiratory Rate 18 Respiratory Effort Short of Breath Respiratory Depth Shallow Respiratory Pattern Tachypnea Blood Pressure 154/83 H Blood Pressure Mean 106 Pulse Ox 98 Oxygen Delivery Method Bi-pap Room Air Oxygen Flow Rate (L/min) 15 07/23/24 07:28 07/23/24 07:48 07/23/24 08:01 Temperature 99.2 F H Temperature Source Axillary Pulse Rate 123 H Respiratory Rate 20 H Respiratory Effort Respiratory Depth Respiratory Pattern Blood Pressure Blood Pressure Mean Pulse Ox Oxygen Delivery Method Nasal Cannula Oxygen Flow Rate (L/min) 5 07/23/24 08:19 07/23/24 09:00 07/23/24 10:00 Temperature 99.1 F 98.9 F 98.9 F Temperature Source Oral Oral Oral Pulse Rate 136 H 123 H 112 H Respiratory Rate 24 H 18 18 Respiratory Effort Respiratory Depth Respiratory Pattern Blood Pressure 163/72 H 150/98 H 146/78 H Blood Pressure Mean 102 115 100 Pulse Ox 95 93 94 Oxygen Delivery Method Nasal Cannula Nasal Cannula Nasal Cannula Oxygen Flow Rate (L/min) 5 5 5 07/23/24 11:00 07/23/24 12:00 Temperature 98.9 F 98.9 F Temperature Source Oral Oral Pulse Rate 109 H 104 H Respiratory Rate 18 20 H Respiratory Effort Respiratory Depth Respiratory Pattern Blood Pressure 142/78 H 141/78 H Blood Pressure Mean 99 99 Pulse Ox 98 98 Oxygen Delivery Method Room Air Room Air Oxygen Flow Rate (L/min) Weight Weight: 157 lb 6.561 oz Body Mass Index (BMI) 27.0 Physical Exam Const alert, oriented x3 and no apparent distress Constitutional Narrative: frail, anxious and tremulous General Appearance: cooperative HEENT normocephalic, head/scalp atraumatic, hearing grossly normal bilaterally and moist oral mucous membranes Mouth: oral and palatal mucosa normal Eyes PERRL, EOMs intact bilaterally and conjunctivae normal Neck no lymphadenopathy Resp Resp Narrative: tachypneic, diminished breath sounds mainly in right lower lung zepeda, no wheezes or crackles. On 5L of oxygen by nasal canula Cardio S1 normal heart sound, S2 normal heart sound and no murmurs Cardio Narrative: tachycardic GI normal to inspection, nondistended, normoactive bowel sounds, soft to palpation, non-tender and non-distended Extremity normal to inspection, full ROM and no clubbing, cyanosis or edema Neuro oriented x3, CN's II-XII intact bilaterally, moves all extremities and no focal motor deficits Sensorium / Orientation: awake Motor Exam: strength 5/5 throughout Psych affect normal Results Lab / Micro Data 07/23/24 07:50 07/23/24 07:50 Labs: Laboratory Results - last 24 hr 07/23/24 07:50: WBC 29.4 H, RBC 3.86 L, Hgb 11.7 L, Hct 36.9 L, MCV 95.6, MCH 30.3, MCHC 31.7 L, RDW Std Deviation 45.7 H, RDW Coeff of Laly 13.0, Plt Count 229, MPV 9.5, Immature Gran % (Auto) 0.600, Neut % (Auto) 91.7 H, Lymph % (Auto) 4.6 L, [place] % (Auto) 2.8, Eos % (Auto) 0.1, Baso % (Auto) 0.2, Absolute Neuts (auto) 27.0 H, Absolute Lymphs (auto) 1.35, Nucleated RBC % 0, Differential Comment SCANNED, Sodium 140, Potassium 5.0, Chloride 106, Carbon Dioxide 27.0, Anion Gap 7, BUN 52 H, Creatinine 3.35 H, Estim Creat Clear Calc 15.57, Est GFR (MDRD) Af Amer 18 L, Est GFR (MDRD) Non-Af 15 L, BUN/Creatinine Ratio 15.5, Glucose 105, Calcium 9.4, Troponin I High Sens 11, B-Natriuretic Peptide 90.6 07/23/24 08:42: D-Dimer Quant (PE/DVT) 1.55 H* 07/23/24 11:38: Urine Color Yellow, Urine Clarity Sl. Cloudy, Urine pH 7.0, Ur Specific [place] 1.010, Urine Protein 30 H, Urine Glucose (UA) Normal, Urine Ketones Negative, Urine Occult Blood 50 H, Urine Nitrite Negative, Urine Bilirubin Negative, Urine Urobilinogen Normal, Ur Leukocyte Esterase Negative, Urine RBC 0-5 SEEN, Urine WBC 0 SEEN, Ur Squamous Epith Cells 0-5 SEEN, Urine Bacteria 0 SEEN, Urine Mucus 0 SEEN Micro: Microbiology 07/23/24 07:45 Mucosa - Nose SARS-CoV-2, Influenza & RSV (PCR) - Final Rhythm Strip Rhythm Strip: Sinus Tach Rate: 127 Ectopy: None Imaging Radiology Impression Chest X-Ray 07/23/24 07:37 IMPRESSION: Right lower lobe infiltrate. Blunting of the right costophrenic angle. Mild vascular congestion. Electronically Signed: Michael Gaxiola MD at 8:53 EST , Chest CTA 07/23/24 09:22 IMPRESSION: No evidence of pulmonary embolism. Infiltration in the right lower lobe with the minimal pleural effusion. Electronically Signed: Michael Gaxiola MD at 10:08 EST , Assessment & Plan Assessment/Plan (1) Sepsis: (2) Acute respiratory failure with hypoxia: (3) Pneumonia: PLAN: Plan #Hypoxia in the setting of chronic respiratory failure due to pneumonia * Patient usually wears about 3 L of oxygen at home and has been on 5 L. She has been getting short of breath with exertion. * Was recently admitted and discharged on 07/11/2024 after being managed for RSV pneumonia. * Chest x-ray shows right lower lobe pneumonia and his chest CT also shows this. D-dimer was elevated but CT of the chest is negative. * Blood cultures and sputum cultures ordered. Urine for strep and Legionella also ordered. * Patient was started on IV ceftriaxone and azithromycin in the ED. Will switch to IV Zosyn. * Breathing treatments with bronchodilators. Titrate oxygen to maintain saturation above 90%. #Sepsis due to right lower lobe pneumonia * Patient meets 3 SIRS criteria namely tachycardia and tachypnea and elevated white cell count of 29.4. There is also an obvious source of infection being the pneumonia * Blood and sputum cultures ordered as above. Urine. And Legionella also ordered as above. * On IV Zosyn as above. * She was discharged on p.o. steroids so this is likely also contributing to elevated leukocytosis. * Unable to aggressively hydrate with IV fluids in light of a ESRD. * check MRSA PCR; if positive, then add on vancomyciin * #ESRD: * On dialysis Wednesdays. * Was due to go for dialysis today but came in because she was short of breath. * Nephrology consulted for dialysis. * #Hyperlipidemia: On statin #Atrial fibrillation: #Probable COPD exacerbation: * Patient also likely having an exacerbation of COPD. She did have some wheezing. * Will start on IV Solu-Medrol 40 mg Q8 which will also help with any potential adrenal insufficiency from the steroid use as patient's blood pressure subsequently dropped to 98/70. #Elevated D dimer: D dimer was 1.55; She did have a CTA chest which was negative for any evidence of PE. #Depression: On buspirone DVT prophylaxis: Heparin CODE STATUS: Full code * Patient counseled extensively about different types of CODE STATUS including full code, DNR CCA and DNR CCA. Patient elects to be full code. * Total [id number] time 16 minutes. Charges/Coding Visit Charges Inpatient E&M: 04502 Init Hosp L3 Procedures Hospitalists Procedures: 98887 Advncd Care Plan 30 Min
[2024-07-23] MEDS: Ceftriaxone 1 GM/50 ML BAG IV (12:46)
[2024-07-23] MEDS: Azithromycin 500 MG in 0.9% Normal Saline (250mL Bag) 250 ML 255 MG IV (13:01)
[2024-07-23] MEDS: PureFlow B 2K Dialysis Soln 1 BAG 6 BAG PF (14:02)
[2024-07-23] MEDS: 0.9% Normal Saline 1,000 ML IV.SOLN. 1000 ML OPERA.SITE (14:03)
[2024-07-23] MEDS: LORazepam 2 MG/ML Syringe 1 MG IV ×2 (14:35→20:51)
[2024-07-23] MEDS: Cholecalciferol (VIT D3) 25 MCG TABLET (1,000 UNITS) PO (15:55)
[2024-07-23] MEDS: Heparin Injection (Vial) 5,000 UNIT/ML VIAL 5000 UNIT SC ×2 (15:55→20:50)
[2024-07-23] MEDS: Heparin 10,000 UNITS/10 ML Vial IV (16:43)
[2024-07-23 19:49] LABS: Reflex Lactate? Y
[2024-07-23] MEDS: Pantoprazole Sodium 40 MG Tablet PO (20:50)
[2024-07-23] MEDS: Atorvastatin Calcium 40 MG Tablet PO (20:51)
[2024-07-23] MEDS: 0.9% Saline Lock 10 ML Syringe IV (20:51)
[2024-07-23] MEDS: Montelukast 10 MG Tablet PO (20:51)
[2024-07-23] MEDS: Piperacil/Tazobactam 3.375 GM in 0.9% Normal Saline (50mL MB+) 50 ML IV (21:03)
[2024-07-23 21:53] LABS: Lactic Acid 1.3 mmol/L (0.4-1.9)
[2024-07-24] VITALS (10 sets, daily range): BP systolic 103–121; BP diastolic 54–63; PULSE 89–107; RESP 18–22; TEMP 36.2–36.9; O2SAT 90–98
[2024-07-24 00:30] LABS: M R Staph aureus DNA By PCR Negative (Negative); Probe Check PASS; Specimen Processing Control PASS
[2024-07-24] MEDS: Ipratropium/Albuterol Sulfate 3 ML AMPUL.NEB INHALATION ×2 (04:02→19:40)
[2024-07-24] MEDS: Heparin Injection (Vial) 5,000 UNIT/ML VIAL 5000 UNIT SC ×3 (05:30→21:15)
[2024-07-24] MEDS: LORazepam 2 MG/ML Syringe 1 MG IV ×2 (05:30→21:15)
[2024-07-24] MEDS: 0.9% Saline Lock 10 ML Syringe IV ×3 (05:31→21:15)
[2024-07-24 07:08] LABS: Absolute Lymphocyte Count 1.12 X10^3/uL (0.83-4.51); Absolute Neutrophil Count 36.3 X10^3/uL (2.0-7.7); Basophil# 0.07 X10^3/uL; Basophil% 0.2 % (0-1); Hematocrit 30.2 % (37-47); Hemoglobin 9.7 g/dL (12.0-15.0); Lymphocyte # 1.12 X10^3/ul (0.83-4.51); Lymphocyte % 2.8 % (19-41); Mean Corp Hgb Conc 32.1 g/dL (32-36); Mean Corpuscular Hgb 30.7 pg (27.0-32.0); Mean Corpuscular Volume 95.6 fL (81-99); Monocyte# 1.07 X10^3/uL; Monocyte% 2.7 % (0-10); NRBC Flagged by Analyzer 0 % (0-5); Neutrophil # 36.25 X10^3/uL (2.7-7.7); Neutrophil % 91.6 % (47-70); POSITIVE COUNT YES; POSITIVE DIFFERENTIAL YES; Platelet Count 196 K/mm3 (150-450); RBC Distribution Width CV 13.1 % (11.6-14.6); Red Blood Count 3.16 M/mm3 (4.2-5.4)
[2024-07-24 07:18] LABS: Differential Indicated SCAN CRITERIA MET; White Blood Count 39.6 K/mm3 (4.4-11.0)
[2024-07-24 07:34] LABS: Anion Gap 7 (5-15); BUN 45 mg/dL (7-18); BUN/Creat Ratio 14.9 RATIO (10-20); Calcium,Total 9.3 mg/dL (8.5-10.1); Chloride 104 mmol/L (98-107); Creatinine, Serum 3.03 mg/dL (0.55-1.02); EST Glomerular Filtration Rate 16 mL/min (>60); Est Glom Filt Rate - Afr Amer 20 mL/min (>60); Estimated Creatinine Clearance 15.34 ml/min; Glucose 124 mg/dL (74-106); Potassium 5.5 mmol/L (3.5-5.1); Sodium Level 139 mmol/L (136-145)
[2024-07-24] MEDS: Sucralfate 1 GM Tablet PO (10:05)
[2024-07-24] MEDS: Isosorbide Mononitrate 60 MG Tablet PO (10:05)
[2024-07-24] MEDS: Pantoprazole Sodium 40 MG Tablet PO ×2 (10:06→21:15)
--- NOTE | 2024-07-24 10:31 | CON.PCM.ID_ITS ---
Assessment & Plan Assessment/Plan (1) Acute respiratory failure with hypoxia: PLAN: Will order sputum cx. UAgs and MRSA screen neg. Clinically rapidly improved. Wbc is up, but is on solumedrol. Will narrow back to ceftriaxone. Will follow, thank you (2) End stage chronic kidney disease: (3) Pneumonia: HPI Consult Data Date of Consult: 07/24/24 HPI Narrative Reason for Consultation: pneumonia HPI Narrative: SNEHA CARDENAS, is a 69 F with ESRD and copd, on 3-4L home O2, recent admit for RSV, discharged 07/11. Now with 3 days progressive cough with white sputum, fatigue, dyspnea. Came to ED, fonud to be hypoxic, dx with pneumonia, given azithro/ceftriaxone, admitted on zosyn and solumedrol. Feeling much better, now on 4L, breathing much improved. No congestion like last admit. Full ROS performed and neg except as noted above. FORMERLY [facility] Medical History Post-menopausal History of steroid therapy History of renal dialysis Blackout Gastric reflux Emphysema, unspecified Shortness of breath on exertion Normal Holter exam History of echocardiogram Hypertension Cardiology follow-up encounter History of heart attack History of atrial fibrillation Hemodialysis catheter malfunction Former cigarette smoker GERD (gastroesophageal reflux disease) Hyperlipidemia History of GI bleed Pleural effusion ESRD (end stage renal disease) on dialysis Essential hypertension NSTEMI (non-ST elevated myocardial infarction) EARNEST (acute kidney injury) Hx of ulcer disease Former smoker Atrial fibrillation Elevated blood pressure reading without diagnosis of hypertension Chronic hypoxemic respiratory failure Acute bronchospasm Acute exacerbation of chronic obstructive pulmonary disease Empyema of pleural space Syncope Bleeding ulcer Anemia requiring transfusions Lung nodules Pleurisy On home oxygen therapy Migraines Hyperglycemia Elevated serum creatinine Sinus tachycardia Fever and chills Dyspnea on exertion Acute bronchospasm COPD exacerbation Leukocytosis Community acquired pneumonia Anxiety Benign essential tremor Former tobacco use Pneumonia due to COVID-19 virus Asthma COPD (chronic obstructive pulmonary disease) Tobacco use Tremor Benign essential hypertension Home Medications ?Medication ?Instructions ?Recorded ?Last Taken ?Type albuterol sulfate 90 mcg/actuation 2 puff inhalation Q4H PRN PRN 08/28/07/23/24 History aerosol inhaler (Ventolin HFA) Shortness Of Breath montelukast 10 mg tablet 10 mg PO QHS ALLERGIES 02/25/18 07/22/24 History fluticasone propionate 50 2 spray intranasal QHS ALLERGIES 05/01/21 07/22/24 History mcg/actuation nasal spray,suspension atorvastatin 40 mg tablet 40 mg PO QHS 09/23/23 07/22/24 History ipratropium 0.5 mg-albuterol 3 mg 3 ml inhalation Q6H PRN shortness 09/23/23 07/23/24 History (2.5 mg base)/3 mL nebulization of breath or wheezing soln isosorbide mononitrate 60 mg 60 mg PO DAILY 09/23/23 07/22/24 History tablet,extended release 24 hr nitroglycerin 0.4 mg sublingual 0.4 mg sublingual Q5-15M PRN chest 09/23/23 Unknown History tablet pain polyethylene glycol 3350 17 17 g PO DAILY PRN constipation 09/23/23 Unknown History gram/dose oral powder buspirone 10 mg tablet 10 mg PO BID 09/27/23 07/22/24 History budesonide 160 mcg-glycopyr 9 2 inh inhalation BID 02/22/24 07/23/24 History mcg-formot 4.8 mcg/actuation HFA inhaler (Breztri Aerosphere) ondansetron 4 mg disintegrating 4 mg PO Q8H PRN nausea and vomiting 04/19/24 Unknown History tablet pantoprazole 40 mg tablet,delayed 40 mg PO BID GERD 05/22/24 07/22/24 History release (Protonix) vitamin B complex-vitamin C-folic 1 tab PO DAILY 05/22/24 07/22/24 History acid 0.8 mg tablet (Galina-Jose Elias) sucralfate 1 gram tablet 1 g PO DAILY GI 07/08/24 07/22/24 History prednisone 20 mg tablet 40 mg (2 x 20 mg) PO DAILY 5 days 07/11/24 07/22/24 Rx #10 tabs acetaminophen 650 mg 650 mg PO Q6H PRN pain 07/23/24 Unknown History tablet,extended release (8 Hour Pain Reliever) cholecalciferol (vitamin D3) 25 25 mcg PO MOWEFR 07/23/24 07/20/24 History mcg (1,000 unit) capsule (Vitamin D3) Allergy/AdvReac Type Severity Reaction Status Date / Time cephalexin monohydrate (From Allergy Chest Verified 07/08/24 02:09 Keflex) tightness vancomycin AdvReac Mild Itching Verified 07/08/24 02:09 Family History Other Adopted Surgical History Hx of surgical procedure Hx of colonoscopy AVF (arteriovenous fistula) (03/13/24) Hx of colonoscopy History of cardiac catheterization Hx of total shoulder replacement Hx of chest tube placement Hx of esophagogastroduodenoscopy H/O bilateral salpingectomy History of herniorrhaphy Hx of tonsillectomy Hx of cholecystectomy Social History adopted: Yes household members: family housing: house Smoking Status: Former smoker how long ago did patient quit smokin years ago alcohol intake: never substance use type: does not use caffeine: Yes Type: coffee Number of servings: 1 Physical Exam Const alert, oriented x3 and no apparent distress General Appearance: cooperative HEENT normocephalic and head/scalp atraumatic Eyes PERRL and EOMs intact bilaterally Neck supple and No nodes Resp Auscultation: diminished lung sounds Cardio regular rate and regular rhythm GI soft to palpation, non-tender and non-distended Extremity General Extremity: Negative for edema Skin no rashes or lesions noted Neuro CN's II-XII intact bilaterally Lab / Micro Data Attestation: I reviewed the patient's lab results. 07/24/24 06:40 07/24/24 06:40 Labs: Laboratory Results - last 24 hr 07/23/24 11:38: Urine Color Yellow, Urine Clarity Sl. Cloudy, Urine pH 7.0, Ur Specific [place] 1.010, Urine Protein 30 H, Urine Glucose (UA) Normal, Urine Ketones Negative, Urine Occult Blood 50 H, Urine Nitrite Negative, Urine Bilirubin Negative, Urine Urobilinogen Normal, Ur Leukocyte Esterase Negative, Urine RBC 0-5 SEEN, Urine WBC 0 SEEN, Ur Squamous Epith Cells 0-5 SEEN, Urine Bacteria 0 SEEN, Urine Mucus 0 SEEN 07/23/24 15:49: Lactic Acid 2.0 07/23/24 20:41: Lactic Acid 1.3 07/23/24 21:15: MRSA (PCR) Negative 07/24/24 06:40: WBC 39.6 H*, RBC 3.16 L, Hgb 9.7 L, Hct 30.2 L, MCV 95.6, MCH 30.7, MCHC 32.1, RDW Std Deviation 46.0 H, RDW Coeff of Laly 13.1, Plt Count 196, MPV 10.0, Immature Gran % (Auto) 2.700 H, Neut % (Auto) 91.6 H, Lymph % (Auto) 2.8 L, [place] % (Auto) 2.7, Eos % (Auto) 0.0, Baso % (Auto) 0.2, Absolute Neuts (auto) 36.3 H, Absolute Lymphs (auto) 1.12, Nucleated RBC % 0, Differential Comment COMMENT, Diff Path Review November, Sodium 139, Potassium 5.5 H, Chloride 104, Carbon Dioxide 28.0, Anion Gap 7, BUN 45 H, Creatinine 3.03 H, Estim Creat Clear Calc 15.34, Est GFR (MDRD) Af Amer 20 L, Est GFR (MDRD) Non-Af 16 L, BUN/Creatinine Ratio 14.9, Glucose 124 H, Calcium 9.3 Micro: Microbiology 07/23/24 11:38 Urine, Random Legionella Antigen - Final 07/23/24 11:38 Urine, Random Streptococcus pneumoniae Antigen (M - Final 07/23/24 07:45 Mucosa - Nose SARS-CoV-2, Influenza & RSV (PCR) - Final Rhythm Strip Rhythm Strip: Sinus Tach Rate: 127 Ectopy: None
--- NOTE | 2024-07-24 10:41 | PCM.CONS.R ---
Assessment & Plan Assessment/Plan (1) End-stage renal disease (ESRD): (2) Acute respiratory failure with hypoxia: (3) Anemia of chronic disease: PLAN: Plan This is a pleasant 69-year-old female with past medical history significant for ESRD who dialyzes Tuesday schedule presented emergency room yesterday with complaints of shortness of breath, admitted for acute hypoxic respiratory failure from pneumonia, COPD and recent RSV infection. Patient underwent hemodialysis yesterday and tolerated around 2.5 L fluid removal. 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 Recently dry weight at kidney center has been lowered due to recent hospitalization, patient losing body mass and also challenging fluid removal with dialysis. Her EDW was 65 kg now new dry weight is around 60 kg. Potassium mildly elevated today, keep on potassium restricted diet, will dialyze on 2K bath tomorrow. Blood pressures acceptable. Patient has a history of anemia of chronic disease, current hemoglobin trends acceptable. Further orders forthcoming as hospitalization evolves, thank you for allowing us to participate in the care of Ms. Cardenas. HPI Consult Data Date of Consult: 07/24/24 HPI Narrative HPI Narrative: SNEHA CARDENAS, is a 69 F with past medical history significant for ESRD who dialyzes at [facility] Tuesday who presented to the emergency room yesterday with complaints of shortness of breath, admitted for acute hypoxic respiratory failure likely from combination of pneumonia, history of COPD and recent history of RSV infection. Patient underwent hemodialysis yesterday and tolerated around 2.5 L fluid removal. Today she reports she is feeling better and breathing better. [facility] Medical History Post-menopausal History of steroid therapy History of renal dialysis Blackout Gastric reflux Emphysema, unspecified Shortness of breath on exertion Normal Holter exam History of echocardiogram Hypertension Cardiology follow-up encounter History of heart attack History of atrial fibrillation Hemodialysis catheter malfunction Former cigarette smoker GERD (gastroesophageal reflux disease) Hyperlipidemia History of GI bleed Pleural effusion ESRD (end stage renal disease) on dialysis Essential hypertension NSTEMI (non-ST elevated myocardial infarction) EARNEST (acute kidney injury) Hx of ulcer disease Former smoker Atrial fibrillation Elevated blood pressure reading without diagnosis of hypertension Chronic hypoxemic respiratory failure Acute bronchospasm Acute exacerbation of chronic obstructive pulmonary disease Empyema of pleural space Syncope Bleeding ulcer Anemia requiring transfusions Lung nodules Pleurisy On home oxygen therapy Migraines Hyperglycemia Elevated serum creatinine Sinus tachycardia Fever and chills Dyspnea on exertion Acute bronchospasm COPD exacerbation Leukocytosis Community acquired pneumonia Anxiety Benign essential tremor Former tobacco use Pneumonia due to COVID-19 virus Asthma COPD (chronic obstructive pulmonary disease) Tobacco use Tremor Benign essential hypertension Home Medications ?Medication ?Instructions ?Recorded ?Last Taken ?Type albuterol sulfate 90 mcg/actuation 2 puff inhalation Q4H PRN PRN 08/28/15 07/23/24 History aerosol inhaler (Ventolin HFA) Shortness Of Breath montelukast 10 mg tablet 10 mg PO QHS ALLERGIES 02/25/18 07/22/24 History fluticasone propionate 50 2 spray intranasal QHS ALLERGIES 05/01/21 07/22/24 History mcg/actuation nasal spray,suspension atorvastatin 40 mg tablet 40 mg PO QHS 09/23/23 07/22/24 History ipratropium 0.5 mg-albuterol 3 mg 3 ml inhalation Q6H PRN shortness 09/23/23 07/23/24 History (2.5 mg base)/3 mL nebulization of breath or wheezing soln isosorbide mononitrate 60 mg 60 mg PO DAILY 09/23/23 07/22/24 History tablet,extended release 24 hr nitroglycerin 0.4 mg sublingual 0.4 mg sublingual Q5-15M PRN chest 09/23/23 Unknown History tablet pain polyethylene glycol 3350 17 17 g PO DAILY PRN constipation 09/23/23 Unknown History gram/dose oral powder buspirone 10 mg tablet 10 mg PO BID 09/27/23 07/22/24 History budesonide 160 mcg-glycopyr 9 2 inh inhalation BID 02/22/24 07/23/24 History mcg-formot 4.8 mcg/actuation HFA inhaler (Breztri Aerosphere) ondansetron 4 mg disintegrating 4 mg PO Q8H PRN nausea and vomiting 04/19/24 Unknown History tablet pantoprazole 40 mg tablet,delayed 40 mg PO BID GERD 05/22/24 07/22/24 History release (Protonix) vitamin B complex-vitamin C-folic 1 tab PO DAILY 05/22/24 07/22/24 History acid 0.8 mg tablet (Galina-Jose Elias) sucralfate 1 gram tablet 1 g PO DAILY GI 07/08/24 07/22/24 History prednisone 20 mg tablet 40 mg (2 x 20 mg) PO DAILY 5 days 07/11/24 07/22/24 Rx #10 tabs acetaminophen 650 mg 650 mg PO Q6H PRN pain 07/23/24 Unknown History tablet,extended release (8 Hour Pain Reliever) cholecalciferol (vitamin D3) 25 25 mcg PO MOWEFR 07/23/24 07/20/24 History mcg (1,000 unit) capsule (Vitamin D3) Allergy/AdvReac Type Severity Reaction Status Date / Time cephalexin monohydrate (From Allergy Chest Verified 07/08/24 02:09 Keflex) tightness vancomycin AdvReac Mild Itching Verified 07/08/24 02:09 Family History Other Adopted Surgical History Hx of surgical procedure Hx of colonoscopy AVF (arteriovenous fistula) (03/13/24) Hx of colonoscopy History of cardiac catheterization Hx of total shoulder replacement Hx of chest tube placement Hx of esophagogastroduodenoscopy H/O bilateral salpingectomy History of herniorrhaphy Hx of tonsillectomy Hx of cholecystectomy Social History adopted: Yes household members: family housing: house Smoking Status: Former smoker how long ago did patient quit smokin years ago alcohol intake: never substance use type: does not use caffeine: Yes Type: coffee Number of servings: 1 ROS ROS Narrative As in HPI Physical Exam Narrative Alert and oriented x 3, no apparent distress S1, S2, RRR Diminished breath sounds anteriorly and posteriorly, faint expiratory wheeze. No rales or rhonchi. On O2 4 L. Abdomen soft, nontender No edema AV fistula left mid arm positive thrill and bruit Tunneled hemodialysis catheter dressing clean, dry and intact Lab / Micro Data 07/24/24 06:40 07/24/24 06:40 Labs: Laboratory Results - last 24 hr 07/23/24 11:38: Urine Color Yellow, Urine Clarity Sl. Cloudy, Urine pH 7.0, Ur Specific [place] 1.010, Urine Protein 30 H, Urine Glucose (UA) Normal, Urine Ketones Negative, Urine Occult Blood 50 H, Urine Nitrite Negative, Urine Bilirubin Negative, Urine Urobilinogen Normal, Ur Leukocyte Esterase Negative, Urine RBC 0-5 SEEN, Urine WBC 0 SEEN, Ur Squamous Epith Cells 0-5 SEEN, Urine Bacteria 0 SEEN, Urine Mucus 0 SEEN 07/23/24 15:49: Lactic Acid 2.0 07/23/24 20:41: Lactic Acid 1.3 07/23/24 21:15: MRSA (PCR) Negative 07/24/24 06:40: WBC 39.6 H*, RBC 3.16 L, Hgb 9.7 L, Hct 30.2 L, MCV 95.6, MCH 30.7, MCHC 32.1, RDW Std Deviation 46.0 H, RDW Coeff of Laly 13.1, Plt Count 196, MPV 10.0, Immature Gran % (Auto) 2.700 H, Neut % (Auto) 91.6 H, Lymph % (Auto) 2.8 L, [place] % (Auto) 2.7, Eos % (Auto) 0.0, Baso % (Auto) 0.2, Absolute Neuts (auto) 36.3 H, Absolute Lymphs (auto) 1.12, Nucleated RBC % 0, Differential Comment COMMENT, Diff Path Review November, Sodium 139, Potassium 5.5 H, Chloride 104, Carbon Dioxide 28.0, Anion Gap 7, BUN 45 H, Creatinine 3.03 H, Estim Creat Clear Calc 15.34, Est GFR (MDRD) Af Amer 20 L, Est GFR (MDRD) Non-Af 16 L, BUN/Creatinine Ratio 14.9, Glucose 124 H, Calcium 9.3 Micro: Microbiology 07/23/24 11:38 Urine, Random Legionella Antigen - Final 07/23/24 11:38 Urine, Random Streptococcus pneumoniae Antigen (M - Final 07/23/24 07:45 Mucosa - Nose SARS-CoV-2, Influenza & RSV (PCR) - Final Rhythm Strip Rhythm Strip: Sinus Tach Rate: 127 Ectopy: None
--- NOTE | 2024-07-24 11:50 | CASEMGMT ---
JAMI GUERRERO chart review: Patient was admitted 07/08-07/11/24 for COPD exacerbation due to RSV, concurrent right upper lobe pneumonia. Patient was discharge to home with [facility], family support, palliative referral, increase in home oxygen, and follow-up plans in place. Patient returned to [facility] ED on 07/23/24 for increased shortness of breath. Patient was admitted for COPD exacerbation and pneumonia. Patient is currently on 4lpm, elevated WBC, ID consult, and sputum culture pending. JAMI GUERRERO in to discuss readmission and needs at discharge. Patient states she was taking medications as prescribed and attended follow-up appts. Calvin has been wearing home oxygen at prescribed. Patient states that [facility] has been following her and she has been attending outpatient HD. Patient states that she has not heard from palliative care. Patient wishes to discharge home with resumption of [facility] HHC. Will follow for increase in home oxygen. CM to follow up with [facility] Palliative regarding referral. CM will continue to follow this patient and plan for a safe discharge.
--- NOTE | 2024-07-24 12:40 | PCM.PROGNOTE ---
Subjective Subjective Patient seen and examined. She says she feels better today. She still feels a bit short of breath but feels her breathing is improved. She is coughing and is expectorating much more than previously. Review of systems is otherwise negative. SHe is still tachycardic and tachypneic, though it is improving. She is on 4L of oxygen. Objective Data Objective Data Vital Signs: Vital Signs Temp Pulse Resp BP Pulse Ox O2 Del Method O2 Flow Rate 98 F 104 H 20 H 103/56 L 97 Nasal Cannula 4 07/24/24 10:03 07/24/24 10:03 07/24/24 10:03 07/24/24 10:03 07/24/24 10:03 07/24/24 10:03 07/24/24 10:03 FiO2 5 07/23/24 16:17 Oxygen Flow Rate (L/min) 4 Oxygen Delivery Method Nasal Cannula Weight: 139 lb 12.369 oz Body Mass Index (BMI) 24.0 Intake & Output: Intake and Output for Last 24 Hours 07/22/24 07/23/24 07/24/24 23:59 23:59 23:59 Intake Total 545 / 545 150 / 150 Output Total 1800 / 1800 Balance -1255 / -1255 150 / 150 Lab / Micro Data 07/24/24 06:40 07/24/24 06:40 Labs: Laboratory Results - last 24 hr 07/23/24 15:49: Lactic Acid 2.0 07/23/24 20:41: Lactic Acid 1.3 07/23/24 21:15: MRSA (PCR) Negative 07/24/24 06:40: WBC 39.6 H*, RBC 3.16 L, Hgb 9.7 L, Hct 30.2 L, MCV 95.6, MCH 30.7, MCHC 32.1, RDW Std Deviation 46.0 H, RDW Coeff of Laly 13.1, Plt Count 196, MPV 10.0, Immature Gran % (Auto) 2.700 H, Neut % (Auto) 91.6 H, Lymph % (Auto) 2.8 L, [place] % (Auto) 2.7, Eos % (Auto) 0.0, Baso % (Auto) 0.2, Absolute Neuts (auto) 36.3 H, Absolute Lymphs (auto) 1.12, Nucleated RBC % 0, Differential Comment COMMENT, Diff Path Review May foll, Sodium 139, Potassium 5.5 H, Chloride 104, Carbon Dioxide 28.0, Anion Gap 7, BUN 45 H, Creatinine 3.03 H, Estim Creat Clear Calc 15.34, Est GFR (MDRD) Af Amer 20 L, Est GFR (MDRD) Non-Af 16 L, BUN/Creatinine Ratio 14.9, Glucose 124 H, Calcium 9.3 Micro: Microbiology 07/23/24 11:38 Urine, Random Legionella Antigen - Final 07/23/24 11:38 Urine, Random Streptococcus pneumoniae Antigen (M - Final 07/23/24 07:45 Mucosa - Nose SARS-CoV-2, Influenza & RSV (PCR) - Final Rhythm Strip Rhythm Strip: Sinus Tach Rate: 127 Ectopy: None Physical Exam Const alert and oriented x3 Constitutional Narrative: frail, still anxious and tremulous General Appearance: cooperative HEENT normocephalic, head/scalp atraumatic, hearing grossly normal bilaterally and moist oral mucous membranes Eyes PERRL, EOMs intact bilaterally and conjunctivae normal Neck no lymphadenopathy Resp Resp Narrative: tachypneic, diminished breath sounds mainly in right lower lung zepeda, no wheezes or crackles. On 4 L of oxygen by nasal canula Cardio S1 normal heart sound, S2 normal heart sound and no murmurs Cardio Narrative: tachycardic GI normal to inspection, nondistended, normoactive bowel sounds, soft to palpation, non-tender and non-distended Extremity normal to inspection, full ROM and no clubbing, cyanosis or edema Neuro oriented x3, CN's II-XII intact bilaterally, moves all extremities and no focal motor deficits Sensorium / Orientation: awake Motor Exam: strength 5/5 throughout and general weakness Psych affect normal Appearance: appropriate Assessment & Plan Assessment/Plan (1) Sepsis: (2) Acute respiratory failure with hypoxia: (3) Pneumonia: PLAN: Plan #Hypoxia in the setting of chronic respiratory failure due to pneumonia now on 4L of oxygen by nasal canula Chest x-ray shows right lower lobe pneumonia and his chest CT also shows this. D-dimer was elevated but CT of the chest is negative. Blood cultures and sputum cultures pending. Urine for strep and Legionella negative. Patient was started on IV ceftriaxone and azithromycin in the ED but was switched to IV Zosyn. Breathing treatments with bronchodilators. Titrate oxygen to maintain saturation above 90%. antibiotics narrowed down to ceftriaxone per ID. #Sepsis due to right lower lobe pneumonia still tachycardic and tachypneic, though this is improving wbc has gone up from 29 on admission to 39 today. She did receive IV solumedrol overnight so that may also be contributing. Blood and sputum cultures ordered as above. Urine. And Legionella also ordered as above. On IV Zosyn as above. MRSA PCR negative; patient allergic to vancomycin. ID on board and narrowed antibiotics down to IV ceftriaxone. #ESRD: On dialysis Wednesdays. Was due to go for dialysis today but came in because she was short of breath. Nephrology consulted for dialysis. did have dialysis yesterday which helped with her shortness of breath #Hyperkalemia: K is 5.5. In the setting of ESRD, will hold off on kayexalate for now. #Hyperlipidemia: On statin #Atrial fibrillation: #Probable COPD exacerbation: Patient also likely having an exacerbation of COPD. She did have some wheezing. solumedrol discontinued today due to her WBc jumping to 39 breathing treatment with bronchodilators. titrate oxygen to maintain sats >90% #Elevated D dimer: D dimer was 1.55; She did have a CTA chest which was negative for any evidence of PE. #Depression: On buspirone DVT prophylaxis: Heparin CODE STATUS: Full code Charges/Coding Visit Charges Inpatient E&M: 09070 [facility] Hosp L3
[2024-07-24] MEDS: Ceftriaxone 2 GM in 0.9% Normal Saline (50mL MB+) 50 ML IV (13:18)
[2024-07-24 13:21] LABS: Pathologist Review Reviewed
--- NOTE | 2024-07-24 16:10 | CHAPLAIN ---
Type of Pastoral Visit _x__ Initial Visit ___ Follow-up Visit ___ On-call Visit ___ General Patient Visit ___ Spiritual Assessment ___ Family Conference ___ Bereavement ___ Rapid Response ___ Code Blue ___ Other (describe below) Pastoral Care Referral From _x__ Patient ___ Family ___ Nurse ___ Physician ___ Youth Court Judge ___ Forensic Science Technician ___ Other (describe below) Sacrament/Intervention _x__ Active listening ___ Anointing ___ Episcopalian ___ Bereavement ___ Communion ___ [place] exploration ___ ___ Life review _x__ Prayer ___ Reconciliation ___ Sacrament of Sick _x__ Supportive presence ___ Wedding ___ Other (describe below) Pastoral Comments patient was seen recently; pt reviews what has happened in the last few weeks of illness and being in and out of the hospital; pt admits that yesterday was frightening as she had great difficulty breathing but that today is better; pt welcomes presence and prayer for support today; pt is thankful for family that she has for help
[2024-07-24] MEDS: Montelukast 10 MG Tablet PO (21:15)
[2024-07-24] MEDS: Atorvastatin Calcium 40 MG Tablet PO (21:15)
[2024-07-25] VITALS (18 sets, daily range): BP systolic 106–187; BP diastolic 53–84; PULSE 75–102; RESP 16–24; TEMP 36.7–37.2; O2SAT 94–98; BMI 23.8
[2024-07-25] MEDS: Ipratropium/Albuterol Sulfate 3 ML AMPUL.NEB INHALATION ×5 (01:33→20:14)
[2024-07-25 06:19] LABS: Absolute Lymphocyte Count 1.77 X10^3/uL (0.83-4.51); Absolute Neutrophil Count 16.8 X10^3/uL (2.0-7.7); Basophil# 0.03 X10^3/uL; Basophil% 0.2 % (0-1); Eosinophil# 0.11 X10^3/uL; Eosinophils% 0.6 % (0-5); Hematocrit 25.6 % (37-47); Hemoglobin 8.3 g/dL (12.0-15.0); Lymphocyte # 1.77 X10^3/ul (0.83-4.51); Lymphocyte % 8.9 % (19-41); Mean Corp Hgb Conc 32.4 g/dL (32-36); Mean Corpuscular Hgb 31.3 pg (27.0-32.0); Mean Corpuscular Volume 96.6 fL (81-99); Mean Platelet Vol. 10.3 fl (6.2-12.0); Monocyte# 1.07 X10^3/uL; Monocyte% 5.4 % (0-10); NRBC Flagged by Analyzer 0 % (0-5); Neutrophil # 16.84 X10^3/uL (2.7-7.7); Neutrophil % 84.1 % (47-70); Platelet Count 169 K/mm3 (150-450); RBC Distribution Width CV 13.2 % (11.6-14.6); RBC Distribution Width SD 47.2 fl (35.1-43.9); Red Blood Count 2.65 M/mm3 (4.2-5.4)
[2024-07-25] MEDS: Heparin Injection (Vial) 5,000 UNIT/ML VIAL 5000 UNIT SC ×3 (06:20→21:39)
[2024-07-25 06:42] LABS: Anion Gap 7 (5-15); BUN 74 mg/dL (7-18); BUN/Creat Ratio 18.5 RATIO (10-20); Calcium,Total 8.6 mg/dL (8.5-10.1); Chloride 105 mmol/L (98-107); Creatinine, Serum 4.01 mg/dL (0.55-1.02); EST Glomerular Filtration Rate 12 mL/min (>60); Est Glom Filt Rate - Afr Amer 14 mL/min (>60); Estimated Creatinine Clearance 11.59 ml/min; Glucose 93 mg/dL (74-106); Potassium 4.4 mmol/L (3.5-5.1); Sodium Level 140 mmol/L (136-145)
[2024-07-25 09:31] LABS: Ferritin 2756 ng/mL (8-252); Iron 132 ug/dL (50-170); Iron Binding Capacity,Total 143 ug/dL (250-450); PERCENT IRON SATURATION 92.3 % (15.0-55.0)
[2024-07-25] MEDS: Epoetin Alfa epbx 10,000 UNIT/ML 20000 UNIT IV (11:21)
[2024-07-25] MEDS: 0.9% Saline Lock 10 ML Syringe IV (11:26)
[2024-07-25] MEDS: Heparin 10,000 UNITS/10 ML Vial IV (11:26)
--- NOTE | 2024-07-25 12:10 | PN_ITS ---
Subjective Subjective Patient seen and examined today. She had no active complaints. She had an uneventful night. Review of systems is otherwise negative. She feels her breathing is improving. She was having dialysis at time of review, and is on 4L of oxygen. Objective Data Objective Data Vital Signs: Vital Signs Temp Pulse Resp BP Pulse Ox O2 Del Method O2 Flow Rate 98.1 F 92 16 137/67 H 94 Nasal Cannula 4 07/25/24 11:30 07/25/24 11:30 07/25/24 11:30 07/25/24 11:30 07/25/24 11:30 07/25/24 11:30 07/25/24 11:30 FiO2 5 07/23/24 16:17 Oxygen Flow Rate (L/min) 4 Oxygen Delivery Method Nasal Cannula Weight: 139 lb 8.842 oz Body Mass Index (BMI) 23.8 Intake & Output: Intake and Output for Last 24 Hours 07/23/24 07/24/24 07/25/24 23:59 23:59 23:59 Intake Total 545 / 545 300 / 300 0 / 0 Output Total 1800 / 1800 1220 / 1220 Balance -1255 / -1255 300 / 300 -1220 / -1220 Lab / Micro Data 07/25/24 05:26 07/25/24 05:26 Labs: Laboratory Results - last 24 hr 07/24/24 06:40: Diff Path Review Reviewed 07/25/24 05:26: WBC 20.0 H, RBC 2.65 L, Hgb 8.3 L, Hct 25.6 L, MCV 96.6, MCH 31.3, MCHC 32.4, RDW Std Deviation 47.2 H, RDW Coeff of Laly 13.2, Plt Count 169, MPV 10.3, Immature Gran % (Auto) 0.800, Neut % (Auto) 84.1 H, Lymph % (Auto) 8.9 L, [place] % (Auto) 5.4, Eos % (Auto) 0.6, Baso % (Auto) 0.2, Absolute Neuts (auto) 16.8 H, Absolute Lymphs (auto) 1.77, Nucleated RBC % 0, Sodium 140, Potassium 4.4, Chloride 105, Carbon Dioxide 29.0, Anion Gap 7, BUN 74 H, Creatinine 4.01 H , Estim Creat Clear Calc 11.59, Est GFR (MDRD) Af Amer 14 L, Est GFR (MDRD) Non- Af 12 L, BUN/Creatinine Ratio 18.5, Glucose 93, Calcium 8.6, Iron 132, TIBC 143 L, Iron Saturation 92.3 H, Ferritin 2756 H Micro: Microbiology 07/23/24 11:38 Urine, Random Legionella Antigen - Final 07/23/24 11:38 Urine, Random Streptococcus pneumoniae Antigen (M - Final 07/23/24 07:45 Mucosa - Nose SARS-CoV-2, Influenza & RSV (PCR) - Final Rhythm Strip Rhythm Strip: Sinus Tach Rate: 127 Ectopy: None Physical Exam Const alert, oriented x3 and no apparent distress Constitutional Narrative: looks much better today General Appearance: cooperative HEENT normocephalic, head/scalp atraumatic, hearing grossly normal bilaterally and moist oral mucous membranes Eyes PERRL, EOMs intact bilaterally and conjunctivae normal Neck no lymphadenopathy Resp Resp Narrative: diminished breath sounds mainly in right lower lung zepeda, no wheezes or crackles. On 4 L of oxygen by nasal canula Cardio S1 normal heart sound, S2 normal heart sound and no murmurs Cardio Narrative: tachycardic GI normal to inspection, nondistended, normoactive bowel sounds, soft to palpation, non-tender and non-distended Extremity normal to inspection, full ROM and no clubbing, cyanosis or edema Skin General Skin Exam: no breakdown Neuro oriented x3, CN's II-XII intact bilaterally, moves all extremities and no focal motor deficits Sensorium / Orientation: awake Motor Exam: strength 5/5 throughout and general weakness Psych affect normal Appearance: appropriate Assessment & Plan Assessment/Plan (1) Sepsis: (2) Acute respiratory failure with hypoxia: (3) Pneumonia: PLAN: Plan #Hypoxia in the setting of chronic respiratory failure due to pneumonia * remains on 4L of oxygen by nasal canula * Chest x-ray shows right lower lobe pneumonia and his chest CT also shows this. D-dimer was elevated but CT of the chest is negative. * Blood cultures and sputum cultures pending. Urine for strep and Legionella negative. * Breathing treatments with bronchodilators. Titrate oxygen to maintain saturation above 90%. * wbc is down to 20 today. Continue IV ceftriaoxne #Sepsis due to right lower lobe pneumonia * tachycardia and tachypnea have improved. * wbc is down to 20 from 39 yesterday * Blood and sputum cultures ordered as above. Urine. And Legionella also ordered as above. * MRSA PCR negative; patient allergic to vancomycin. * ID on board; on IV ceftriaxone * #ESRD: * On dialysis Wednesdays. * neprhology on board. Having dialysis today * #Hyperkalemia: resolved with dialysis #Anemia: * Hemoglobin is 8.3 today. * Was 9.7 yesterday. * Baseline is around 10-11. * Check stool for occult blood and check iron panel. * If hemoglobin continues to drop will consult GI. * Transfuse if hemoglobin is less than 7. * #Hyperlipidemia: On statin #Probable COPD exacerbation: * Patient also likely having an exacerbation of COPD. She did have some wheezing. * solumedrol discontinued today due to her WBc jumping to 39 * breathing treatment with bronchodilators. * titrate oxygen to maintain sats >90% * #Elevated D dimer: D dimer was 1.55; She did have a CTA chest which was negative for any evidence of PE. #Depression: On buspirone DVT prophylaxis: Heparin CODE STATUS: Full code * Charges/Coding Visit Charges Inpatient E&M: 16111 Subs Hosp L2
[2024-07-25] MEDS: Pantoprazole Sodium 40 MG Tablet PO ×2 (12:43→21:39)
[2024-07-25] MEDS: Isosorbide Mononitrate 60 MG Tablet PO (12:43)
[2024-07-25] MEDS: Ceftriaxone 2 GM in 0.9% Normal Saline (50mL MB+) 50 ML IV (12:48)
--- NOTE | 2024-07-25 13:58 | PCM.PN.ID ---
Physical Exam Narrative Feeling better, less sputum, no fever, no n/v/d. Const alert and no apparent distress General Appearance: cooperative Resp Auscultation: diminished lung sounds Cardio regular rate and regular rhythm GI soft to palpation, non-tender and non-distended Skin no rashes or lesions noted ID ID: Route of nutrition/ use of supplements: [] Nutritional Intake: [] IV Site: [] Castelan Catheter: []
[2024-07-25] MEDS: Cholecalciferol (VIT D3) 25 MCG TABLET (1,000 UNITS) PO (14:14)
[2024-07-25] MEDS: Atorvastatin Calcium 40 MG Tablet PO (21:39)
[2024-07-25] MEDS: Montelukast 10 MG Tablet PO (21:40)
[2024-07-25] MEDS: LORazepam 2 MG/ML Syringe 1 MG IV (23:13)
[2024-07-26] VITALS (11 sets, daily range): BP systolic 110–130; BP diastolic 53–66; PULSE 88–107; RESP 12–20; TEMP 36.4–37.2; O2SAT 94–99
[2024-07-26] MEDS: Ipratropium/Albuterol Sulfate 3 ML AMPUL.NEB INHALATION ×4 (02:10→20:11)
[2024-07-26] MEDS: Heparin Injection (Vial) 5,000 UNIT/ML VIAL 5000 UNIT SC ×3 (05:20→21:35)
[2024-07-26 06:43] LABS: Anion Gap 7 (5-15); BUN 43 mg/dL (7-18); Chloride 105 mmol/L (98-107); Creatinine, Serum 3.31 mg/dL (0.55-1.02); EST Glomerular Filtration Rate 15 mL/min (>60); Est Glom Filt Rate - Afr Amer 18 mL/min (>60); Estimated Creatinine Clearance 14.05 ml/min; Glucose 87 mg/dL (74-106); Potassium 4.2 mmol/L (3.5-5.1); Sodium Level 137 mmol/L (136-145)
[2024-07-26 07:20] LABS: Absolute Neutrophil Count 8.4 X10^3/uL (2.0-7.7); Basophil# 0.03 X10^3/uL; Basophil% 0.3 % (0-1); Eosinophil# 0.38 X10^3/uL; Eosinophils% 3.4 % (0-5); Hematocrit 25.8 % (37-47); Hemoglobin 8.2 g/dL (12.0-15.0); Lymphocyte % 13.4 % (19-41); Mean Corp Hgb Conc 31.8 g/dL (32-36); Mean Corpuscular Hgb 30.6 pg (27.0-32.0); Mean Corpuscular Volume 96.3 fL (81-99); Mean Platelet Vol. 9.6 fl (6.2-12.0); Monocyte# 0.81 X10^3/uL; Monocyte% 7.2 % (0-10); NRBC Flagged by Analyzer 0 % (0-5); Neutrophil # 8.38 X10^3/uL (2.7-7.7); Neutrophil % 74.8 % (47-70); Platelet Count 154 K/mm3 (150-450); RBC Distribution Width CV 13.3 % (11.6-14.6); RBC Distribution Width SD 46.6 fl (35.1-43.9); Red Blood Count 2.68 M/mm3 (4.2-5.4); White Blood Count 11.2 K/mm3 (4.4-11.0)
[2024-07-26] MEDS: Pantoprazole Sodium 40 MG Tablet PO ×2 (09:30→21:36)
[2024-07-26] MEDS: Isosorbide Mononitrate 60 MG Tablet PO (09:30)
[2024-07-26] MEDS: Ceftriaxone 2 GM in 0.9% Normal Saline (50mL MB+) 50 ML IV (09:31)
[2024-07-26] MEDS: Sucralfate 1 GM Tablet PO (09:31)
--- NOTE | 2024-07-26 10:03 | PN.RENAL_ITS ---
Subjective Subjective Patient resting in bed. Reports feeling better overall. Reports breathing is better. No overnight events. Objective Data Objective Data Vital Signs: Vital Signs Temp Pulse Resp BP Pulse Ox O2 Del Method O2 Flow Rate 98.4 F 107 H 12 110/53 L 98 Nasal Cannula 3 07/26/24 07:56 07/26/24 08:54 07/26/24 08:54 07/26/24 07:56 07/26/24 08:54 07/26/24 08:54 07/26/24 08:54 FiO2 5 07/23/24 16:17 Oxygen Flow Rate (L/min) 3 Oxygen Delivery Method Nasal Cannula Weight: 63.3 kg Body Mass Index (BMI) 23.8 Intake & Output: Intake and Output for Last 24 Hours 07/24/24 07/25/24 07/26/24 23:59 23:59 23:59 Intake Total 300 / 300 50 / 50 Output Total 1220 / 1220 Balance 300 / 300 -1170 / -1170 Lab / Micro Data 07/26/24 07:12 07/26/24 05:11 Labs: Laboratory Results - last 24 hr 07/26/24 05:11: WBC Cancelled, Corrected WBC Cancelled, RBC Cancelled, Hgb Cancelled, Hct Cancelled, MCV Cancelled, MCH Cancelled, MCHC Cancelled, RDW Std Deviation Cancelled, RDW Coeff of Laly Cancelled, Plt Count Cancelled, MPV Cancelled, Immature Gran % (Auto) Cancelled, Neut % (Auto) Cancelled, Lymph % (Auto) Cancelled, [place] % (Auto) Cancelled, Eos % (Auto) Cancelled, Baso % (Auto) Cancelled, Absolute Neuts (auto) Cancelled, Absolute Lymphs (auto) Cancelled, Total Counted Cancelled, Neutrophils % (Manual) Cancelled, Band Neutrophils % Cancelled, Lymphocytes % (Manual) Cancelled, Monocytes % (Manual) Cancelled, Eosinophils % (Manual) Cancelled, Basophils % (Manual) Cancelled, Metamyelocytes % Cancelled, Myelocytes % Cancelled, Promyelocytes % Cancelled, Blast Cells % Cancelled, Plasma Cell % (Manual) Cancelled, Other Cells % Cancelled, Nucleated RBC % Cancelled, Nucleated RBCs/100 WBC Cancelled, Differential Comment Cancelled, Diff Path Review Cancelled, Hypersegmented Neuts Cancelled, Atypical Lymphocytes Cancelled, Reactive Lymphocytes Cancelled, Smudge Cells Cancelled, Toxic Granulation Cancelled, Toxic Vacuolation Cancelled, Dohle Bodies Cancelled, Kimmie Rods Cancelled, Platelet Estimate Cancelled, Plt Morphology Comment Cancelled, RBC Morphology Cancelled 07/26/24 05:11: RBC Morphology Cancelled, Polychromasia Cancelled, Hypochromasia Cancelled, Basophilic Stippling Cancelled, Anisocytosis Cancelled, Microcytosis Cancelled, Macrocytosis Cancelled, Spherocytes Cancelled, Sickle Cells Cancelled, Target Cells Cancelled, Tear Drop Cells Cancelled, Ovalocytes Cancelled, Stomatocytes Cancelled, [place] Bodies Cancelled, Luis Cells Cancelled, Bite Cells Cancelled, Crenated Cell Cancelled, Acanthocytes (Spur) Cancelled, Rouleaux Cancelled, Schistocytes Cancelled, Sodium 137, Potassium 4.2, Chloride 105, Carbon Dioxide 25.0, Anion Gap 7, BUN 43 H, Creatinine 3.31 H , Estim Creat Clear Calc 14.05, Est GFR (MDRD) Af Amer 18 L, Est GFR (MDRD) Non- Af 15 L, BUN/Creatinine Ratio 13.0, Glucose 87, Calcium 9.0 07/26/24 07:12: WBC 11.2 H, RBC 2.68 L, Hgb 8.2 L, Hct 25.8 L, MCV 96.3, MCH 30.6, MCHC 31.8 L, RDW Std Deviation 46.6 H, RDW Coeff of Laly 13.3, Plt Count 154, MPV 9.6, Immature Gran % (Auto) 0.900, Neut % (Auto) 74.8 H, Lymph % (Auto) 13.4 L, [place] % (Auto) 7.2, Eos % (Auto) 3.4, Baso % (Auto) 0.3, Absolute Neuts (auto) 8.4 H, Absolute Lymphs (auto) 1.50, Nucleated RBC % 0 Micro: Microbiology 07/24/24 14:50 Sputum, Expectorated/Coughed Gram Stain - Final 07/24/24 14:50 Sputum, Expectorated/Coughed Respiratory Culture - Preliminary Presumptive C albicans 07/25/24 14:50 Stool Stool Occult Blood (ROSAURA) - Final 07/23/24 09:50 Blood Culture (Wb) - Left Hand Blood Culture - Preliminary No growth in 48 hours. 07/23/24 10:00 Blood Culture (Wb) - Right Forearm Blood Culture - Preliminary No growth in 48 hours. 07/23/24 11:38 Urine, Random Legionella Antigen - Final 07/23/24 11:38 Urine, Random Streptococcus pneumoniae Antigen (M - Final 07/23/24 07:45 Mucosa - Nose SARS-CoV-2, Influenza & RSV (PCR) - Final Rhythm Strip Rhythm Strip: Sinus Tach Rate: 127 Ectopy: None Physical Exam Narrative Alert and oriented x 3, no apparent distress S1, S2, RRR Diminished breath sounds anteriorly and posteriorly. No rales or rhonchi. On O2 nasal cannula. Abdomen soft, nontender No edema AV fistula left mid arm positive thrill and bruit Tunneled hemodialysis catheter dressing clean, dry and intact Assessment & Plan Assessment/Plan (1) End-stage renal disease (ESRD): (2) Acute respiratory failure with hypoxia: (3) Anemia of chronic disease: PLAN: Plan This is a pleasant 69-year-old female with past medical history significant for ESRD who dialyzes Tuesday schedule presented to the emergency room with complaints of shortness of breath, admitted for acute hypoxic respiratory failure from pneumonia, COPD and recent RSV infection. 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 Had been attempting more fluid removal with dialysis but goal was back down due to hypotension and tachycardia. Recently dry weight at kidney center has been lowered due to recent hospitalization, patient losing body mass and also challenging fluid removal with dialysis. Her EDW was 65 kg now new dry weight is around 60 kg. Next dialysis tomorrow -Anemia of chronic disease; patient to receive ERIC with dialysis
--- NOTE | 2024-07-26 10:15 | PCM.PN.ID ---
Physical Exam Narrative Feeling better, breathing improved, some sputum, no n/v/d Const alert and no apparent distress General Appearance: cooperative Resp Auscultation: diminished lung sounds Cardio regular rate and regular rhythm GI soft to palpation, non-tender and non-distended Skin no rashes or lesions noted ID ID: Route of nutrition/ use of supplements: [] Nutritional Intake: [] IV Site: [] Castelan Catheter: [] Assessment & Plan Assessment/Plan (1) Acute respiratory failure with hypoxia: PLAN: Sputum cx ngtd. UAgs and MRSA screen neg. Clinically rapidly improved. Wbc nearly back to normal. Cont ceftriaxone. Ok for home today with 2 doses of po cefdinir 300mg on Tuesday after HD and Tuesday. If she leaves tomorrow, would just need single 300mg dose on Tuesday. Will follow prn (2) End stage chronic kidney disease: (3) Pneumonia:
--- NOTE | 2024-07-26 10:18 | PN_ITS ---
Subjective Subjective Patient seen and examined. She says she felt better and had no active complaints today. She is on 3 L of oxygen. According to her nurse she desaturates with exertion still. Review of systems otherwise negative. Objective Data Objective Data Vital Signs: Vital Signs Temp Pulse Resp BP Pulse Ox O2 Del Method O2 Flow Rate 98.4 F 107 H 12 110/53 L 98 Nasal Cannula 3 07/26/24 07:56 07/26/24 08:54 07/26/24 08:54 07/26/24 07:56 07/26/24 08:54 07/26/24 08:54 07/26/24 08:54 FiO2 5 07/23/24 16:17 Oxygen Flow Rate (L/min) 3 Oxygen Delivery Method Nasal Cannula Weight: 139 lb 8.842 oz Body Mass Index (BMI) 23.8 Intake & Output: Intake and Output for Last 24 Hours 07/24/24 07/25/24 07/26/24 23:59 23:59 23:59 Intake Total 300 / 300 50 / 50 Output Total 1220 / 1220 Balance 300 / 300 -1170 / -1170 Lab / Micro Data 07/26/24 07:12 07/26/24 05:11 Labs: Laboratory Results - last 24 hr 07/26/24 05:11: WBC Cancelled, Corrected WBC Cancelled, RBC Cancelled, Hgb Cancelled, Hct Cancelled, MCV Cancelled, MCH Cancelled, MCHC Cancelled, RDW Std Deviation Cancelled, RDW Coeff of Laly Cancelled, Plt Count Cancelled, MPV Cancelled, Immature Gran % (Auto) Cancelled, Neut % (Auto) Cancelled, Lymph % (Auto) Cancelled, [place] % (Auto) Cancelled, Eos % (Auto) Cancelled, Baso % (Auto) Cancelled, Absolute Neuts (auto) Cancelled, Absolute Lymphs (auto) Cancelled, Total Counted Cancelled, Neutrophils % (Manual) Cancelled, Band Neutrophils % Cancelled, Lymphocytes % (Manual) Cancelled, Monocytes % (Manual) Cancelled, Eosinophils % (Manual) Cancelled, Basophils % (Manual) Cancelled, Metamyelocytes % Cancelled, Myelocytes % Cancelled, Promyelocytes % Cancelled, Blast Cells % Cancelled, Plasma Cell % (Manual) Cancelled, Other Cells % Cancelled, Nucleated RBC % Cancelled, Nucleated RBCs/100 WBC Cancelled, Differential Comment Cancelled, Diff Path Review Cancelled, Hypersegmented Neuts Cancelled, Atypical Lymphocytes Cancelled, Reactive Lymphocytes Cancelled, Smudge Cells Cancelled, Toxic Granulation Cancelled, Toxic Vacuolation Cancelled, Dohle Bodies Cancelled, Kimmie Rods Cancelled, Platelet Estimate Cancelled, Plt Morphology Comment Cancelled, RBC Morphology Cancelled 07/26/24 05:11: RBC Morphology Cancelled, Polychromasia Cancelled, Hypochromasia Cancelled, Basophilic Stippling Cancelled, Anisocytosis Cancelled, Microcytosis Cancelled, Macrocytosis Cancelled, Spherocytes Cancelled, Sickle Cells Cancelled, Target Cells Cancelled, Tear Drop Cells Cancelled, Ovalocytes Cancelled, Stomatocytes Cancelled, [place] Bodies Cancelled, [place] Cells Cancelled, Bite Cells Cancelled, Crenated Cell Cancelled, Acanthocytes (Spur) Cancelled, Rouleaux Cancelled, Schistocytes Cancelled, Sodium 137, Potassium 4.2, Chloride 105, Carbon Dioxide 25.0, Anion Gap 7, BUN 43 H, Creatinine 3.31 H , Estim Creat Clear Calc 14.05, Est GFR (MDRD) Af Amer 18 L, Est GFR (MDRD) Non- Af 15 L, BUN/Creatinine Ratio 13.0, Glucose 87, Calcium 9.0 07/26/24 07:12: WBC 11.2 H, RBC 2.68 L, Hgb 8.2 L, Hct 25.8 L, MCV 96.3, MCH 30.6, MCHC 31.8 L, RDW Std Deviation 46.6 H, RDW Coeff of Laly 13.3, Plt Count 154, MPV 9.6, Immature Gran % (Auto) 0.900, Neut % (Auto) 74.8 H, Lymph % (Auto) 13.4 L, [place] % (Auto) 7.2, Eos % (Auto) 3.4, Baso % (Auto) 0.3, Absolute Neuts (auto) 8.4 H, Absolute Lymphs (auto) 1.50, Nucleated RBC % 0 Micro: Microbiology 07/24/24 14:50 Sputum, Expectorated/Coughed Gram Stain - Final 07/24/24 14:50 Sputum, Expectorated/Coughed Respiratory Culture - Preliminary Presumptive C albicans 07/25/24 14:50 Stool Stool Occult Blood (ROSAURA) - Final 07/23/24 09:50 Blood Culture (Wb) - Left Hand Blood Culture - Preliminary No growth in 48 hours. 07/23/24 10:00 Blood Culture (Wb) - Right Forearm Blood Culture - Preliminary No growth in 48 hours. 07/23/24 11:38 Urine, Random Legionella Antigen - Final 07/23/24 11:38 Urine, Random Streptococcus pneumoniae Antigen (M - Final 07/23/24 07:45 Mucosa - Nose SARS-CoV-2, Influenza & RSV (PCR) - Final Rhythm Strip Rhythm Strip: Sinus Tach Rate: 127 Ectopy: None Physical Exam Const alert, oriented x3 and no apparent distress Constitutional Narrative: frail General Appearance: cooperative HEENT normocephalic, head/scalp atraumatic, hearing grossly normal bilaterally and moist oral mucous membranes Eyes PERRL, EOMs intact bilaterally and conjunctivae normal Neck no lymphadenopathy Resp Resp Narrative: diminished breath sounds mainly in right lower lung zepeda, no wheezes or crackles. On 3 L of oxygen by nasal canula Cardio S1 normal heart sound, S2 normal heart sound and no murmurs Cardio Narrative: mildly tachycardic GI normal to inspection, nondistended, normoactive bowel sounds, soft to palpation, non-tender and non-distended Extremity normal to inspection, full ROM, normal capillary refill and no clubbing, cyanosis or edema Skin General Skin Exam: no breakdown Neuro oriented x3, CN's II-XII intact bilaterally, moves all extremities and no focal motor deficits Sensorium / Orientation: awake Motor Exam: strength 5/5 throughout and general weakness Psych thought process normal, cooperative and affect normal Appearance: appropriate Assessment & Plan Assessment/Plan (1) Sepsis: (2) Acute respiratory failure with hypoxia: (3) Pneumonia: PLAN: Plan #Hypoxia in the setting of chronic respiratory failure due to pneumonia * is on 3L of oxygen by nasal canula * Chest x-ray shows right lower lobe pneumonia and his chest CT also shows this. D-dimer was elevated but CT of the chest is negative. * Blood cultures and sputum cultures pending. Urine for strep and Legionella negative. * Breathing treatments with bronchodilators. Titrate oxygen to maintain saturation above 90%. * wbc is further down to 11.2 today. Continue IV ceftriaxone #Sepsis due to right lower lobe pneumonia * wbc is down to 11.2 today. Peaked at 39 today. * Blood and sputum cultures ordered as above. Urine. And Legionella also ordered as above. * MRSA PCR negative; patient allergic to vancomycin. * ID on board; on IV ceftriaxone * #ESRD: * On dialysis Wednesdays. * nephrology on board. * #Hyperkalemia: resolved with dialysis #Anemia: * Hemoglobin is 8.2 today. * Baseline is around 10-11. * Check stool for occult blood and check iron panel. * If hemoglobin continues to drop will consult GI. * Transfuse if hemoglobin is less than 7. * #Hyperlipidemia: On statin #Probable COPD exacerbation: * her breathing is improving. She is on 3L of oxygen. * solumedrol was stopped due to marked leucocytosis * breathing treatment with bronchodilators. * Titrate oxygen to maintain sats >90% #Elevated D dimer: D dimer was 1.55; She did have a CTA chest which was negative for any evidence of PE. #Depression: On buspirone DVT prophylaxis: Heparin CODE STATUS: Full code * Charges/Coding Visit Charges Inpatient E&M: 43041 Subs Hosp L2
--- NOTE | 2024-07-26 19:56 | EKG12_ITS ---
Test Reason : CP Blood Pressure : */* mmHG Vent. Rate : 90 BPM Atrial Rate : 90 BPM P-R Int : 186 ms QRS Dur : 84 ms QT Int : 342 ms P-R-T Axes : 72 73 36 degrees QTcB Int : 418 ms Normal sinus rhythm Normal ECG When compared with ECG of 23-Jul-2024 08:34, MANUAL COMPARISON REQUIRED DATA IS UNCONFIRMED Confirmed by LAINA DORANTES, SAAD ([id number]), supervising film or videotape editor EDGARD HURTADO ([id number]) on 07/30/2024 2:10:51 PM Referred By: Confirmed By: SAAD MARINA MD
[2024-07-26] MEDS: LORazepam 2 MG/ML Syringe 1 MG IV (21:35)
[2024-07-26] MEDS: Atorvastatin Calcium 40 MG Tablet PO (21:35)
[2024-07-26] MEDS: 0.9% Saline Lock 10 ML Syringe IV (21:36)
[2024-07-26] MEDS: Montelukast 10 MG Tablet PO (21:36)
[2024-07-27] VITALS (16 sets, daily range): BP systolic 123–217; BP diastolic 52–75; PULSE 81–103; RESP 15–20; TEMP 35.9–36.9; O2SAT 87–100; BMI 23.1; BMI 22.6
[2024-07-27] MEDS: Ipratropium/Albuterol Sulfate 3 ML AMPUL.NEB INHALATION ×3 (01:14→13:35)
[2024-07-27] MEDS: Heparin Injection (Vial) 5,000 UNIT/ML VIAL 5000 UNIT SC ×2 (05:33→13:28)
[2024-07-27 06:57] LABS: Absolute Lymphocyte Count 1.41 X10^3/uL (0.83-4.51); Absolute Neutrophil Count 6.9 X10^3/uL (2.0-7.7); Basophil# 0.04 X10^3/uL; Basophil% 0.4 % (0-1); Eosinophil# 0.51 X10^3/uL; Eosinophils% 5.3 % (0-5); Hematocrit 28.6 % (37-47); Hemoglobin 8.9 g/dL (12.0-15.0); Lymphocyte # 1.41 X10^3/ul (0.83-4.51); Lymphocyte % 14.6 % (19-41); Mean Corp Hgb Conc 31.1 g/dL (32-36); Mean Corpuscular Hgb 30.1 pg (27.0-32.0); Mean Corpuscular Volume 96.6 fL (81-99); Mean Platelet Vol. 10.5 fl (6.2-12.0); Monocyte# 0.65 X10^3/uL; Monocyte% 6.7 % (0-10); NRBC Flagged by Analyzer 0 % (0-5); Neutrophil # 6.93 X10^3/uL (2.7-7.7); Neutrophil % 71.7 % (47-70); Platelet Count 209 K/mm3 (150-450); RBC Distribution Width SD 46.2 fl (35.1-43.9); Red Blood Count 2.96 M/mm3 (4.2-5.4); White Blood Count 9.7 K/mm3 (4.4-11.0)
[2024-07-27] MEDS: 0.9% Saline Lock 10 ML Syringe IV ×2 (07:46→10:29)
[2024-07-27] MEDS: PureFlow B 2K Dialysis Soln 1 BAG 6 BAG PF (07:46)
[2024-07-27] MEDS: 0.9% Normal Saline 1,000 ML IV.SOLN. 1000 ML OPERA.SITE (07:46)
[2024-07-27 07:52] LABS: Anion Gap 8 (5-15); BUN 46 mg/dL (7-18); Calcium,Total 9.4 mg/dL (8.5-10.1); Chloride 107 mmol/L (98-107); Creatinine, Serum 3.55 mg/dL (0.55-1.02); EST Glomerular Filtration Rate 14 mL/min (>60); Est Glom Filt Rate - Afr Amer 16 mL/min (>60); Glucose 84 mg/dL (74-106); Potassium 3.8 mmol/L (3.5-5.1); Sodium Level 139 mmol/L (136-145)
[2024-07-27] MEDS: Epoetin Alfa epbx 10,000 UNIT/ML 20000 UNIT IV (08:58)
[2024-07-27] MEDS: Heparin 10,000 UNITS/10 ML Vial IV (10:29)
[2024-07-27] MEDS: Sucralfate 1 GM Tablet PO (11:10)
[2024-07-27] MEDS: Isosorbide Mononitrate 60 MG Tablet PO (11:10)
[2024-07-27] MEDS: Pantoprazole Sodium 40 MG Tablet PO (11:10)
[2024-07-27] MEDS: Ceftriaxone 2 GM in 0.9% Normal Saline (50mL MB+) 50 ML IV (11:11)
[2024-07-27] MEDS: Cholecalciferol (VIT D3) 25 MCG TABLET (1,000 UNITS) PO (13:28)
[2024-07-27] MEDS: BENZOCAINE/MENTHOL 1 LOZENGE MUCOUS MEM (14:05)
--- NOTE | 2024-07-27 14:31 | DS.PCM_ITS ---
Providers Date of Admission: 07/23/24 Date of Discharge: 07/27/24 Primary Care Physician: Dr. Julio Draper MD Consultations 07/23/24 13:42 Consult: Nephrology Routine Consulting Provider: Adelia Lawson Reason for Consult: ESRD EMERGENT Consult: No Notified: Yes Date Notified: 07/23/24 Time Notified: 13:32 Method of Notification: Text 07/24/24 07:55 Consult: Infectious Disease Routine Consulting Provider: Solo Perry Reason for Consult: sepsis, pneumonia, marked leucocytosis EMERGENT Consult: No Notified: Yes Date Notified: 07/24/24 Time Notified: 08:10 Method of Notification: Text Reason For Visit: COPD EXACERBATION, PNEUMONIA Diagnosis Discharge Diagnosis (1) Sepsis: Status: Acute Code(s): A41.9 - Sepsis, unspecified organism (2) Acute respiratory failure with hypoxia: Status: Acute Code(s): J96.01 - Acute respiratory failure with hypoxia (3) Pneumonia: Status: Acute Code(s): J18.9 - Pneumonia, unspecified organism (4) End stage chronic kidney disease: Status: Chronic Code(s): N18.6 - End stage renal disease Plan #Hypoxia in the setting of chronic respiratory failure due to pneumonia * is on 3L of oxygen by nasal canula * Chest x-ray shows right lower lobe pneumonia and his chest CT also shows this. D-dimer was elevated but CT of the chest is negative. * Blood cultures and sputum cultures pending. Urine for strep and Legionella negative. * Breathing treatments with bronchodilators. Titrate oxygen to maintain saturation above 90%. * wbc is further down to 11.2 today. Continue IV ceftriaxone #Sepsis due to right lower lobe pneumonia * wbc is down to 11.2 today. Peaked at 39 today. * Blood and sputum cultures ordered as above. Urine. And Legionella also ordered as above. * MRSA PCR negative; patient allergic to vancomycin. * ID on board; on IV ceftriaxone * #ESRD: * On dialysis Wednesdays. * nephrology on board. * #Hyperkalemia: resolved with dialysis #Anemia: * Hemoglobin is 8.2 today. * Baseline is around 10-11. * Check stool for occult blood and check iron panel. * If hemoglobin continues to drop will consult GI. * Transfuse if hemoglobin is less than 7. * #Hyperlipidemia: On statin #Probable COPD exacerbation: * her breathing is improving. She is on 3L of oxygen. * solumedrol was stopped due to marked leucocytosis * breathing treatment with bronchodilators. * Titrate oxygen to maintain sats >90% #Elevated D dimer: D dimer was 1.55; She did have a CTA chest which was negative for any evidence of PE. #Depression: On buspirone DVT prophylaxis: Heparin CODE STATUS: Full code * Medications at Discharge Home Medications albuterol sulfate 90 mcg/actuation aerosol inhaler (Ventolin HFA) 2 puff inhalation Q4H PRN PRN Shortness Of Breath 08/28/15 montelukast 10 mg tablet 10 mg PO QHS ALLERGIES 02/25/18 fluticasone propionate 50 mcg/actuation nasal spray,suspension 2 spray intranasal QHS ALLERGIES 05/01/21 atorvastatin 40 mg tablet 40 mg PO QHS 09/23/23 ipratropium 0.5 mg-albuterol 3 mg (2.5 mg base)/3 mL nebulization soln 3 ml inhalation Q6H PRN shortness of breath or wheezing 09/23/23 isosorbide mononitrate 60 mg tablet,extended release 24 hr 60 mg PO DAILY 09/23/23 nitroglycerin 0.4 mg sublingual tablet 0.4 mg sublingual Q5-15M PRN chest pain 09/23/23 polyethylene glycol 3350 17 gram/dose oral powder 17 g PO DAILY PRN constipation 09/23/23 buspirone 10 mg tablet 10 mg PO BID 09/27/23 budesonide 160 mcg-glycopyr 9 mcg-formot 4.8 mcg/actuation HFA inhaler (Breztri Aerosphere) 2 inh inhalation BID 02/22/24 ondansetron 4 mg disintegrating tablet 4 mg PO Q8H PRN nausea and vomiting 04/19/24 pantoprazole 40 mg tablet,delayed release (Protonix) 40 mg PO BID GERD 05/22/24 vitamin B complex-vitamin C-folic acid 0.8 mg tablet (Galina-Jose Elias) 1 tab PO DAILY 05/22/24 sucralfate 1 gram tablet 1 g PO DAILY GI 07/08/24 acetaminophen 650 mg tablet,extended release (8 Hour Pain Reliever) 650 mg PO Q6H PRN pain 07/23/24 cholecalciferol (vitamin D3) 25 mcg (1,000 unit) capsule (Vitamin D3) 25 mcg PO MOWEFR 07/23/24 cefdinir 300 mg capsule 300 mg PO X1 #1 cap 07/27/24 guaifenesin 1,200 mg tablet, extended release 12 hr (Mucus Relief ER) 1,200 mg PO BID #30 tabs 07/27/24 Hospital Course Operations None Procedures None Summary of Care Provided Minutes Spent on Discharge: 55 Hospital Course: SNEHA CARDENAS, is a 69 F with a PMH as outlined who presented via the ED on 07/23/2024 with complaint of shortness of breath. Patient states she got up to go to the bathroom and became very short of breath, saturating down in the 80s. She usually wears 4 to 5 L of oxygen at home and says she was discharged home on this after she was managed for RSV pneumonia and admitted to the hospital a couple of weeks ago. She was just discharged on 07/11/2024. She admitted to a cough which was productive. She denied any chest pain, lightheadedness or dizziness, nausea vomiting or any other symptoms. Review of systems otherwise negative. Vitals were blood pressure 154/47, pulse rate of 118, respiratory rate of 21 and oxygen saturation of 94% on room air. CBC showed hemoglobin of 11.7 WBC of 29.4 and platelets of 229. D-dimer was elevated at 1.55. Chemistry showed sodium of 140 with potassium of 5 and bicarb of 27 with creatinine of 3.35. Urinalysis showed no evidence of bacteria. CTA chest showed no evidence of PE and showed infiltrate in the right lower lobe with minimal pleural effusion. Chest x-ray has shown a right lower lobe infiltrate with blunting of the right costophrenic angle. She is being admitted to be managed for sepsis and hypoxia due to right lower lobe pneumonia. She was started on IV ceftriaxone and azithromycin in the ED but this was switched to IV Zosyn. She was placed on breathing treatments with bronchodilators. She was initially placed on IV Solu-Medrol but her white cell count trended up to 39 so this was discontinued. ID was consulted. Nephrology was also consulted for dialysis. ID narrowed with antibiotics back down to ceftriaxone only. Patient's shortness of breath gradually improved and she felt better. She was weaned down to her baseline 4 L of oxygen on 07/27/2024 and had a walking pulse ox which showed that she did not require any more oxygen than her baseline. ID recommended that she could be discharged home on a single dose of p.o. cefdinir 300 mg x 1, dose to be taken on 07/29/2024 to complete her course of antibiotics. She is to follow-up with her primary care doctor and with pulmonology within 1 to 2 weeks. Patient seen and examined prior to discharge. She had no active complaints and had an uneventful night. Review of systems otherwise negative. Labs and vitals reviewed. Home medication reviewed and reconciled. Physical Exam Const alert, oriented x3 and no apparent distress Constitutional Narrative: frail General Appearance: cooperative and comfortable Exam Limitations: no limitations HEENT normocephalic, head/scalp atraumatic, hearing grossly normal bilaterally and moist oral mucous membranes Mouth: oral and palatal mucosa normal Eyes PERRL, EOMs intact bilaterally and conjunctivae normal Neck no lymphadenopathy Resp Resp Narrative: mildly diminished breath sounds bilaterally. No wheezes or crackles. On 4L of oxygen by nasal canula. Cardio regular rate, regular rhythm, S1 normal heart sound, S2 normal heart sound and no murmurs GI normal to inspection, nondistended, normoactive bowel sounds, soft to palpation, non-tender and non-distended Extremity normal to inspection, full ROM, normal capillary refill and no clubbing, cyanosis or edema Skin no rashes or lesions noted General Skin Exam: no breakdown Neuro oriented x3, CN's II-XII intact bilaterally, moves all extremities and no focal motor deficits Sensorium / Orientation: awake and alert Motor Exam: strength 5/5 throughout and general weakness Psych thought process normal, cooperative and affect normal Appearance: appropriate Weight / BMI Weight Weight: 132 lb 11.492 oz Body Mass Index (BMI) 22.6 ABG / Lab / Microbiology Data 07/27/24 06:27 07/27/24 06:27 Laboratory: Laboratory Results - last 24 hr 07/27/24 06:27: WBC 9.7, RBC 2.96 L, Hgb 8.9 L, Hct 28.6 L, MCV 96.6, MCH 30.1, MCHC 31.1 L, RDW Std Deviation 46.2 H, RDW Coeff of Laly 13.0, Plt Count 209, MPV 10.5, Immature Gran % (Auto) 1.300 H, Neut % (Auto) 71.7 H, Lymph % (Auto) 14.6 L, [place] % (Auto) 6.7, Eos % (Auto) 5.3 H, Baso % (Auto) 0.4, Absolute Neuts (auto) 6.9, Absolute Lymphs (auto) 1.41, Nucleated RBC % 0, Sodium 139, Potassium 3.8, Chloride 107, Carbon Dioxide 24.0, Anion Gap 8, BUN 46 H, C reatinine 3.55 H, Estim Creat Clear Calc 13.10, Est GFR (MDRD) Af Amer 16 L, Est GFR (MDRD) Non-Af 14 L, BUN/Creatinine Ratio 13.0, Glucose 84, Calcium 9.4 Microbiology: Microbiology 07/24/24 14:50 Sputum, Expectorated/Coughed Gram Stain - Final 07/24/24 14:50 Sputum, Expectorated/Coughed Respiratory Culture - Final Presumptive C albicans 07/25/24 14:50 Stool Stool Occult Blood (ROSAURA) - Final 07/23/24 09:50 Blood Culture (Wb) - Left Hand Blood Culture - Preliminary No growth in 48 hours. 07/23/24 10:00 Blood Culture (Wb) - Right Forearm Blood Culture - Preliminary No growth in 48 hours. 07/23/24 11:38 Urine, Random Legionella Antigen - Final 07/23/24 11:38 Urine, Random Streptococcus pneumoniae Antigen (M - Final 07/23/24 07:45 Mucosa - Nose SARS-CoV-2, Influenza & RSV (PCR) - Final D/C Instructions Discharge Diet: Low fat / Low cholesterol Discharge Activity: Return to Normal Activity Weight Bearing Status: Weight bearing as tolerated Call your doctor if you observe: Fever of 101 or Higher, Shortness of breath, Dizziness, Swelling in the ankles and Chest pain DC O2, CPAP, BIPAP Needs RN Home O2 Qualification: Home O2 Qualification: Is the patient on home oxygen Yes 07/27/24 11:07 Home O2 Qualification: AT REST 1-Pulse Ox at rest 97 07/27/24 11:07 1- Oxygen flow rate at rest 3 07/27/24 11:07 Home O2 Qualification: WITH AMBULATION 1- Pulse Ox with ambulation 87 07/27/24 11:07 1- Oxygen Flow Rate with 3 07/27/24 11:07 ambulation 2- Pulse Ox with ambulation 94 07/27/24 11:07 2- Oxygen Flow Rate with 4 07/27/24 11:07 ambulation PSN CPAP & BiPAP: BiPAP & CPAP Settings per PSN Fraction of Inspired Oxygen ( 5 07/23/24 16:17 FIO2) Home O2 Discharge instructions: Yes Type of respiratory needs?: Oxygen Oxygen frequency: Continuous Continuous oxygen liters per minute: 4 DC home with Oxygen: Yes Home O2 MD Review: I have reviewed the oxygen testing, and the patient qualifies for home oxygen equipment and portability. The patient is mobile in the home and the community. Meaningful Use Info Meaningful Use Meaningful Use Diagnoses (Choose all that apply): None applicable Ischemic Stroke Statin Dosing Therapy Reference: STATIN DOSE THERAPY REFERENCE: * Patients > 75 years receive moderate or high dose statin therapy. * Patients 75 years or YOUNGER should receive HIGH intensity statin dose unless contraindicated. You will be required to document reason for non-treatment if statin daily dose does not meet guidelines. HIGH DOSE STATIN THERAPY DAILY Atorvastatin > than or = to 40 mg Rosuvastatin > than or = to 20 mg Amlodipine + Atorvastatin > than or = to 2.5/40 mg Ezetimibe + Simvastatin 10/80 mg Simvastatin 80mg Discharge Plan Admission Admit Date/Time: 07/23/24 12:31 Primary Reason for Your Visit: COPD exacerbation, pneumonia Attending Provider: Gabby Sutherland Primary Care Provider: Julio Draper Consulting Providers: Adelia Lawson; Solo Perry Instructions Patient Instructions: COPD Quit Smoking, COPD Controlled Breathing Dc Discharge Orders/Prescriptions Prescriptions: New guaifenesin [Mucus Relief ER] 1,200 mg Tablet Extended Release 12hr 1,200 mg PO BID Qty: 30 0RF cefdinir 300 mg capsule 300 mg PO X1 Qty: 1 0RF Rx Instructions: to take on Tuesday07/29/2024 Continued nitroglycerin 0.4 mg tablet, sublingual 0.4 mg sublingual Q5-15M PRN (Reason: chest pain) Rx Instructions: do not exceed 3 doses per episode polyethylene glycol 3350 17 gram/dose powder 17 g PO DAILY PRN (Reason: constipation) isosorbide mononitrate 60 mg tablet extended release 24 hr 60 mg PO DAILY ipratropium-albuterol 0.5 mg-3 mg(2.5 mg base)/3 mL solution for nebulization 3 ml inhalation Q6H PRN (Reason: shortness of breath or wheezing) atorvastatin 40 mg tablet 40 mg PO QHS buspirone 10 mg tablet 10 mg PO BID ondansetron 4 mg tablet,disintegrating 4 mg PO Q8H PRN (Reason: nausea and vomiting) albuterol sulfate [Ventolin HFA] 1 INHALER inhaler 2 puff inhalation Q4H PRN PRN (Reason: Shortness Of Breath) Patient Comments: shortness of breath montelukast 10 MG tablet 10 mg PO QHS fluticasone propionate 50 mcg/actuation spray,suspension 2 spray INTRANASAL QHS Patient Comments: Use 1 [place] in each nostril once daily. Breztri Aerosphere 160-9-4.8 mcg/actuation HFA aerosol inhaler 2 inh inhalation BID pantoprazole [Protonix] 40 mg tablet,delayed release (DR/EC) 40 mg PO BID Rx Instructions: 40 mg twice daily for 3 months and then once daily. Galina-Jose Elias 0.8 mg tablet 1 tab PO DAILY sucralfate 1 gram tablet 1 g PO DAILY cholecalciferol (vitamin D3) [Vitamin D3] 25 mcg (1,000 unit) capsule 25 mcg PO MOWEFR Rx Instructions: PT GIVEN VITAMIN AT DIALYSIS acetaminophen [8 Hour Pain Reliever] 650 mg tablet extended release 650 mg PO Q6H PRN (Reason: pain) Discontinued prednisone 20 mg tablet 40 mg PO DAILY 5 Days Qty: 10 0RF Patient Comments: PT STATES SHE IS STILL TAKING Referrals / Follow Up: Julio Draper MD [Primary Care Provider] - Within 1 Week Disposition Disposition (needs filled in before D/C Order can be placed): Home, Self Care Charges/Coding Visit Charges Inpatient E&M: 92607 Disch Hosp >30min
--- NOTE | 2024-07-27 14:59 | CASEMGMT ---
Patient has order for discharge. Patient is maintaining on home oxygen of 3lpm at rest and 4lpm with activity. JAMI GUERRERO updated [facility] palliatve and they are to reach out to patient regarding consult. JAMI GUERRERO called [facility] to update with patient discharging today. JAMI GUERRERO in to discuss needs at discharge, at bedside. Patient states she has portable tank to go home with for at discharge. Patient updated regarding palliative consult and HHC resumption. Patient denies further needs or help at discharge. Patient had no further questions or concerns. Discharge plan updated. JAMI GUERRERO updated [facility] of discharge.
--- NOTE | 2024-07-27 16:13 | PN.RENAL_ITS ---
Subjective Subjective no new events seen on HD Objective Data Objective Data Vital Signs: Vital Signs Temp Pulse Resp BP Pulse Ox O2 Del Method O2 Flow Rate 98.4 F 88 18 123/61 H 97 Nasal Cannula 3 07/27/24 14:32 07/27/24 14:32 07/27/24 14:32 07/27/24 14:32 07/27/24 14:32 07/27/24 14:32 07/27/24 14:32 FiO2 5 07/23/24 16:17 Oxygen Flow Rate (L/min) 3 Oxygen Delivery Method Nasal Cannula Weight: 60.2 kg Body Mass Index (BMI) 22.6 Intake & Output: Intake and Output for Last 24 Hours 07/25/24 07/26/24 07/27/24 23:59 23:59 23:59 Intake Total 50 / 50 770 / 770 170 / 170 Output Total 1220 / 1220 1820 / 1820 Balance -1170 / -1170 770 / 770 -1650 / -1650 Lab / Micro Data 07/27/24 06:27 07/27/24 06:27 Labs: Laboratory Results - last 24 hr 07/27/24 06:27: WBC 9.7, RBC 2.96 L, Hgb 8.9 L, Hct 28.6 L, MCV 96.6, MCH 30.1, MCHC 31.1 L, RDW Std Deviation 46.2 H, RDW Coeff of Laly 13.0, Plt Count 209, MPV 10.5, Immature Gran % (Auto) 1.300 H, Neut % (Auto) 71.7 H, Lymph % (Auto) 14.6 L, [place] % (Auto) 6.7, Eos % (Auto) 5.3 H, Baso % (Auto) 0.4, Absolute Neuts (auto) 6.9, Absolute Lymphs (auto) 1.41, Nucleated RBC % 0, Sodium 139, Potassium 3.8, Chloride 107, Carbon Dioxide 24.0, Anion Gap 8, BUN 46 H, C reatinine 3.55 H, Estim Creat Clear Calc 13.10, Est GFR (MDRD) Af Amer 16 L, Est GFR (MDRD) Non-Af 14 L, BUN/Creatinine Ratio 13.0, Glucose 84, Calcium 9.4 Micro: Microbiology 07/24/24 14:50 Sputum, Expectorated/Coughed Gram Stain - Final 07/24/24 14:50 Sputum, Expectorated/Coughed Respiratory Culture - Final Presumptive C albicans 07/25/24 14:50 Stool Stool Occult Blood (ROSAURA) - Final 07/23/24 09:50 Blood Culture (Wb) - Left Hand Blood Culture - Preliminary No growth in 48 hours. 07/23/24 10:00 Blood Culture (Wb) - Right Forearm Blood Culture - Preliminary No growth in 48 hours. 07/23/24 11:38 Urine, Random Legionella Antigen - Final 07/23/24 11:38 Urine, Random Streptococcus pneumoniae Antigen (M - Final 07/23/24 07:45 Mucosa - Nose SARS-CoV-2, Influenza & RSV (PCR) - Final Rhythm Strip Rhythm Strip: Sinus Tach Rate: 127 Ectopy: None Physical Exam Narrative Alert and oriented x 3, no apparent distress S1, S2, RRR Diminished breath sounds anteriorly and posteriorly. No rales or rhonchi. On O2 nasal cannula. Abdomen soft, nontender No edema AV fistula left mid arm positive thrill and bruit Tunneled hemodialysis catheter dressing clean, dry and intact Assessment & Plan Assessment/Plan (1) End-stage renal disease (ESRD): (2) Acute respiratory failure with hypoxia: (3) Anemia of chronic disease: PLAN: Plan This is a pleasant 69-year-old female with past medical history significant for ESRD who dialyzes Tuesday schedule presented to the emergency room with complaints of shortness of breath, admitted for acute hypoxic respiratory failure from pneumonia, COPD and recent RSV infection. -ESRD; seen on HD today. says feels better. no peripheral edema
== END 2024-07-27 16:08 | disposition home or self-care (01) | DRG 871 ==
LOC: ED 12:32 → PCU 13:04
PROVIDERS: Admitting Provider Student in an Organized Health Care Education/Training Program; Emergency Provider Emergency Medicine; PCP Internal Medicine; Visit Provider Student in an Organized Health Care Education/Training Program
DX: A41.9 Sepsis, unspecified organism (principal); N18.6 End stage renal disease; J96.01 Acute respiratory failure with hypoxia; J18.9 Pneumonia, unspecified organism; I12.0 Hypertensive chronic kidney disease with stage 5 chronic kidney disease or end stage renal disease; J44.0 Chronic obstructive pulmonary disease with (acute) lower respiratory infection; J44.1 Chronic obstructive pulmonary disease with (acute) exacerbation; D63.1 Anemia in chronic kidney disease; E87.5 Hyperkalemia; F32.A Depression, unspecified; I48.91 Unspecified atrial fibrillation; E78.5 Hyperlipidemia, unspecified; K21.9 Gastro-esophageal reflux disease without esophagitis; Z99.2 Dependence on renal dialysis; I25.2 Old myocardial infarction; Z87.891 Personal history of nicotine dependence; Z99.81 Dependence on supplemental oxygen; Z79.51 Long term (current) use of inhaled steroids; Z79.899 Other long term (current) drug therapy; Z96.619 Presence of unspecified artificial shoulder joint; Z90.49 Acquired absence of other specified parts of digestive tract; R79.1 Abnormal coagulation profile
CPT/HCPCS: 36415; 71045; 71275; 80048; 81001; 82274; 82728; 83540; 83550; 83605; 83880; 84484; 85025; 85379; 87040; 87070; 87205; 87449; 87631; 87641; 90937; 93005; 94640; 97116; 97162; 97165; 97530; 97802; 99285; Q9967; A4216; G0257; J0696; Q5106

== ENCOUNTER 2024-08-02 22:43 | Emergency (ER) | payer MEDICARE, OTHER, SELFPAY ==
[2024-08-02 22:49] VITALS: BP 147/68; PULSE 105; RESP 20; TEMP 37.7; O2SAT 96; BMI 25.4
[2024-08-02 22:52] VITALS: BP 146/76; PULSE 104; RESP 25; TEMP 37.7; O2SAT 93
[2024-08-02 23:00] VITALS: O2SAT 94
[2024-08-02 23:27] VITALS: O2SAT 95
--- NOTE | 2024-08-02 23:27 | EKG12_ITS ---
Test Reason : DYSRHYTHMIA Blood Pressure : */* mmHG Vent. Rate : 100 BPM Atrial Rate : 100 BPM P-R Int : 196 ms QRS Dur : 84 ms QT Int : 342 ms P-R-T Axes : 61 68 35 degrees QTcB Int : 441 ms Normal sinus rhythm Septal infarct , age undetermined Abnormal ECG Confirmed by ROB DORANTES, LUCRETIA ([id number]), editor publications RACHEL APARICIO ([id number]) on 08/06/2024 6:07:55 AM Referred By: TL Confirmed By: LUCRETIA RIVAS MD
--- NOTE | 2024-08-02 23:27 | RAD_ITS ---
PROCEDURE: CHEST PA AND LATERAL REASON FOR EXAM: Shortness of breath. COPD. Cough. TECHNIQUE: Frontal and lateral views of the chest. COMPARISON: 07/03/2024 FINDINGS: Emphysematous changes, most conspicuous within the lung apices. Hazy airspace disease involving the right lower lobe. No pneumothorax. No sizeable effusions. Heart size and great vessels are stable. Large bore dual lumen venous access catheter on the right, stable in position. Osseous thorax appears intact. Reverse shoulder arthroplasty. Spondylotic change involving the thoracic spine. EKG wires overlie the chest. RAD/Chest PA and Lateral IMPRESSION: 1. Emphysematous changes, most conspicuous within the lung apices. 2. Hazy airspace disease involving the right lower lobe. Correlate for an infe ctious or inflammatory process. Follow-up to resolution recommended. Reading [facility]
--- NOTE | 2024-08-02 23:31 | ED.VIS.DYS ---
HPI History of Present Illness Chief Complaint: Shortness of Breath Informant: patient and spouse/S.O. Narrative Narrative: Presents by EMS from home worsening dyspnea fever since yesterday along with worsening cough. Discharged from hospital 6 days ago after 4-day stay right lower lobe pneumonia. Dialysis patient Fridays. Still makes urine. Last treatment was yesterday. States she was discharged feeling better she took 2 more days of antibiotics. Symptoms reoccurred. She been using Tylenol last dose 4 hours ago. No chest pains. States symptoms worse with exertion. Patient using breathing treatments throughout the day. Prior similar symptoms: Yes PFSH [facility] Medical History Post-menopausal History of steroid therapy History of renal dialysis Blackout Gastric reflux Emphysema, unspecified Shortness of breath on exertion Normal Holter exam History of echocardiogram Hypertension Cardiology follow-up encounter History of heart attack History of atrial fibrillation Hemodialysis catheter malfunction Former cigarette smoker GERD (gastroesophageal reflux disease) Hyperlipidemia History of GI bleed Pleural effusion ESRD (end stage renal disease) on dialysis Essential hypertension NSTEMI (non-ST elevated myocardial infarction) EARNEST (acute kidney injury) Hx of ulcer disease Former smoker Atrial fibrillation Elevated blood pressure reading without diagnosis of hypertension Chronic hypoxemic respiratory failure Acute bronchospasm Acute exacerbation of chronic obstructive pulmonary disease Empyema of pleural space Syncope Bleeding ulcer Anemia requiring transfusions Lung nodules Pleurisy On home oxygen therapy Migraines Hyperglycemia Elevated serum creatinine Sinus tachycardia Fever and chills Dyspnea on exertion Acute bronchospasm COPD exacerbation Leukocytosis Community acquired pneumonia Anxiety Benign essential tremor Former tobacco use Pneumonia due to COVID-19 virus Asthma COPD (chronic obstructive pulmonary disease) Tobacco use Tremor Benign essential hypertension Home Medications ?Medication ?Instructions ?Recorded ?Last Taken ?Type albuterol sulfate 90 mcg/actuation 2 puff inhalation Q4H PRN PRN 08/28/15 07/23/24 History aerosol inhaler (Ventolin HFA) Shortness Of Breath montelukast 10 mg tablet 10 mg PO QHS ALLERGIES 02/25/18 07/22/24 History fluticasone propionate 50 2 spray intranasal QHS ALLERGIES 05/01/21 07/22/24 History mcg/actuation nasal spray,suspension atorvastatin 40 mg tablet 40 mg PO QHS 09/23/23 07/22/24 History isosorbide mononitrate 60 mg 60 mg PO DAILY 09/23/23 07/22/24 History tablet,extended release 24 hr nitroglycerin 0.4 mg sublingual 0.4 mg sublingual Q5-15M PRN chest 09/23/23 Unknown History tablet pain buspirone 10 mg tablet 10 mg PO BID 09/27/23 07/22/24 History budesonide 160 mcg-glycopyr 9 2 inh inhalation BID 02/22/24 07/23/24 History mcg-formot 4.8 mcg/actuation HFA inhaler (Breztri Aerosphere) vitamin B complex-vitamin C-folic 1 tab PO DAILY 05/22/24 07/22/24 History acid 0.8 mg tablet (Galina-Jose Elias) sucralfate 1 gram tablet 1 g PO DAILY GI 07/08/24 07/22/24 History acetaminophen 650 mg 650 mg PO Q6H PRN pain 07/23/24 Unknown History tablet,extended release (8 Hour Pain Reliever) cholecalciferol (vitamin D3) 25 25 mcg PO MOWEFR 07/23/24 07/20/24 History mcg (1,000 unit) capsule (Vitamin D3) guaifenesin 1,200 mg tablet, 1,200 mg PO BID #30 tabs 07/27/24 Unknown Rx extended release 12 hr (Mucus Relief ER) doxycycline monohydrate 100 mg 100 mg PO BID #14 CAPSULES 08/03/24 Unknown Rx capsule prednisone 20 mg tablet 60 mg (3 x 20 mg) PO DAILY #12 08/03/24 Unknown Rx TABLETS Allergy/AdvReac Type Severity Reaction Status Date / Time cephalexin monohydrate (From Allergy Chest Verified 08/02/24 22:54 Keflex) tightness vancomycin AdvReac Mild Itching Verified 08/02/24 22:54 Family History Other Adopted Surgical History Hx of surgical procedure Hx of colonoscopy AVF (arteriovenous fistula) (03/13/24) Hx of colonoscopy History of cardiac catheterization Hx of total shoulder replacement Hx of chest tube placement Hx of esophagogastroduodenoscopy H/O bilateral salpingectomy History of herniorrhaphy Hx of tonsillectomy Hx of cholecystectomy Social History adopted: Yes household members: family housing: house Smoking Status: Former smoker how long ago did patient quit smokin years ago alcohol intake: never substance use type: does not use caffeine: Yes Type: coffee Number of servings: 1 ROS ROS ED Constitutional Constitutional ED: Reports fever(s); Denies chills or sweats ENT ENT ED: Denies sore throat Cardiovascular Cardiovascular: Denies chest pain, leg edema, palpitations or racing heartbeat Respiratory/Chest Respiratory/Chest: Reports cough and dyspnea; Denies dyspnea on exertion Gastrointestinal Gastrointestinal: Denies abdominal pain, diarrhea, nausea or vomiting Genitourinary Genitourinary ED: Denies dysuria, hematuria or urinary frequency Musculoskeletal Musculoskeletal: Denies back pain, extremity pain, myalgias or neck pain Integumentary Denies rash or wounds Neurologic Neurologic: Denies headache(s), paresthesias or weakness EXAM Physical Exam Const Vital Signs: 08/02/24 22:49 08/02/24 22:52 08/02/24 23:00 Temperature 99.8 F H 99.8 F H Temperature Source Oral Oral Pulse Rate 105 H 104 H Respiratory Rate 20 H 25 H Respiratory Effort Short of Breath Retracting Blood Pressure 147/68 H 146/76 H Blood Pressure Mean 94 99 Pulse Ox 96 93 Oxygen Delivery Method Nasal Cannula Nasal Cannula Nasal Cannula Oxygen Flow Rate (L/min) 4 4 4 08/02/24 23:27 08/02/24 23:48 08/02/24 23:52 Temperature 99.8 F H Temperature Source Oral Pulse Rate 101 H 100 Respiratory Rate 15 19 H Respiratory Effort Blood Pressure 142/75 H Blood Pressure Mean 97 Pulse Ox 95 96 97 Oxygen Delivery Method Nasal Cannula Nasal Cannula Nasal Cannula Oxygen Flow Rate (L/min) 4 4 08/03/24 00:00 08/03/24 00:00 08/03/24 01:00 Temperature 99.8 F H 99.8 F H Temperature Source Oral Pulse Rate 104 H 99 102 H Respiratory Rate 16 16 16 Respiratory Effort Blood Pressure 136/81 H 144/66 H Blood Pressure Mean 99 92 Pulse Ox 96 97 97 Oxygen Delivery Method Nasal Cannula Oxygen Flow Rate (L/min) 4 Positive well nourished and well developed Constitutional Narrative: 4 L nasal cannula General Appearance ED: well developed and NAD HEENT Reports moist mucous membranes normocephalic and atraumatic Eyes General Eye ED: Yes normal appearance of both eyes Neck full ROM Chest Wall Chest Narrative: Right chest wall vas cath with dressing clean, dry, intact. Chest: Negative for tenderness Resp normal respiratory effort and normal air movement Effort and Inspection: symmetric chest movement; Negative for respiratory distress Cardio regular rate, regular rhythm and no murmurs Peripheral Pulses: pulses 2+ throughout GI normal to inspection, nondistended, normoactive bowel sounds and non-tender Palpation: Negative for guarding or rebound tenderness present Extremity normal to inspection General Extremety ED: Negative for edema or tenderness General Extremity: Negative for edema Neuro oriented x3 and no sensory deficits noted Sensorium / Orientation: awake and alert Skin no rashes or lesions noted and no wounds MDM MDM MDM Narrative Medical decision making narrative: Interventions / MDM: Differential diagnosis: COPD exacerbation, pneumonia Diagnosis considered but do not suspect: My EKG interpretation: Sinus rate of 100, no ST changes. Imaging independently reviewed and interpreted by myself: 2 view chest x-ray: Residual right lower lobe infiltrate. External documents reviewed: N/A Test considered but not ordered:N/A ED course: Patient reported increasing cough and fever since yesterday. History of COPD. Currently on 4 L oxygen. With no fevers worsening cough workup reinitiated. Two-view chest x-ray nasal swabs labs. Labs stable white count 10.8. Hemoglobin 9.2 stable from previous. Creatinine 3.63 BUN 33 potassium 3.4. History of end-stage renal disease on dialysis. Chest x-ray with residual infiltrate right lower lobe improved from previous. Stable on her oxygen. No respiratory distress. With her COPD increasing new sputum production and fevers restarted on prednisone and doxycycline for coverage. Clinically her oxygen no respiratory distress, no indication requiring hospitalization at this time. She has dialysis tomorrow for which she will keep. All questions were answered. Re-evaluation: stable Disposition discussed with patient/family/significant other: Patient and significant other Case discussed with consulting clinician: N/A This note was generated with [facility] dictation software. It may contain incorrect words, spelling, and punctuation that were not noted in checking the note before signing. Lab Data Attestation: I reviewed the patient's lab results. Labs: Laboratory Results - last 24 hr 08/02/24 22:30 WBC 10.8 RBC 2.99 L Hgb 9.2 L Hct 28.5 L MCV 95.3 MCH 30.8 MCHC 32.3 RDW Std Deviation 47.0 H RDW Coeff of Laly 15.4 H Plt Count 289 MPV 9.3 Immature Gran % (Auto) 1.200 H Neut % (Auto) 73.9 H Lymph % (Auto) 11.4 L Lipscomb % (Auto) 8.8 Eos % (Auto) 4.2 Baso % (Auto) 0.5 Absolute Neuts (auto) 8.0 H Absolute Lymphs (auto) 1.24 Nucleated RBC % 0 Sodium 140 Potassium 3.4 L Chloride 102 Carbon Dioxide 28.0 Anion Gap 10 BUN 33 H Creatinine 3.63 H Estim Creat Clear Calc 13.48 Est GFR (MDRD) Af Amer 16 L Est GFR (MDRD) Non-Af 13 L BUN/Creatinine Ratio 9.1 L Glucose 115 H Calcium 8.9 Total Bilirubin 0.40 AST 12 L ALT 24 Alkaline Phosphatase 131 H Total Protein 7.0 Albumin 3.3 Globulin 3.7 Albumin/Globulin Ratio 0.9 Radiography Diagnostic Testing: Clinical Impression(s) from Imaging Studies Chest X-Ray 08/02/24 23:27 IMPRESSION: 1. Emphysematous changes, most conspicuous within the lung apices. 2. Hazy airspace disease involving the right lower lobe. Correlate for an infectious or inflammatory process. Follow-up to resolution recommended. Reading Location: [facility] Discharge Plan Triage Chief Complaint: Shortness of Breath ED Provider: Dariel Combs Dx/Rx/DC Orders Clinical Impression: COPD (chronic obstructive pulmonary disease), End stage chronic kidney disease, Anemia Instructions: ED COPD Flare Prescriptions: New prednisone 20 mg tablet 60 mg PO DAILY Qty: 12 0RF doxycycline monohydrate 100 mg capsule 100 mg PO BID Qty: 14 0RF No Action nitroglycerin 0.4 mg tablet, sublingual 0.4 mg sublingual Q5-15M PRN (Reason: chest pain) Rx Instructions: do not exceed 3 doses per episode isosorbide mononitrate 60 mg tablet extended release 24 hr 60 mg PO DAILY atorvastatin 40 mg tablet 40 mg PO QHS buspirone 10 mg tablet 10 mg PO BID albuterol sulfate [Ventolin HFA] 1 INHALER inhaler 2 puff inhalation Q4H PRN PRN (Reason: Shortness Of Breath) Patient Comments: shortness of breath montelukast 10 MG tablet 10 mg PO QHS fluticasone propionate 50 mcg/actuation spray,suspension 2 spray INTRANASAL QHS Patient Comments: Use 1 Dwight in each nostril once daily. Breztri Aerosphere 160-9-4.8 mcg/actuation HFA aerosol inhaler 2 inh inhalation BID Galina-Jose Elias 0.8 mg tablet 1 tab PO DAILY sucralfate 1 gram tablet 1 g PO DAILY cholecalciferol (vitamin D3) [Vitamin D3] 25 mcg (1,000 unit) capsule 25 mcg PO MOWEFR Rx Instructions: PT GIVEN VITAMIN AT DIALYSIS acetaminophen [8 Hour Pain Reliever] 650 mg tablet extended release 650 mg PO Q6H PRN (Reason: pain) guaifenesin [Mucus Relief ER] 1,200 mg Tablet Extended Release 12hr 1,200 mg PO BID Qty: 30 0RF Patient Comments: pt unsure if she has been taking this Primary Care Provider: Julio Draper Referrals: Julio Draper MD [Primary Care Provider] - Activity Restrictions/Additional Instructions: Blood work stable today. Chest x-ray residual pneumonia right lower lobe. COVID, flu, RSV negative today. Take and finish antibiotic as prescribed. Take steroids as prescribed. Follow-up your doctor. Keep your dialysis appointment. Print Language: [place] Disposition Disposition: Home, Self Care Discharge Date/Time: 08/03/24 01:32
[2024-08-02 23:48] VITALS: PULSE 101; RESP 15; O2SAT 96
[2024-08-02 23:52] VITALS: BP 142/75; PULSE 100; RESP 19; TEMP 37.7; O2SAT 97
[2024-08-03] VITALS: BP 136/81; PULSE 104; PULSE 99; RESP 16; TEMP 37.7; O2SAT 96; O2SAT 97
[2024-08-03 00:09] LABS: Absolute Lymphocyte Count 1.24 X10^3/uL (0.83-4.51); Basophil# 0.05 X10^3/uL; Basophil% 0.5 % (0-1); Eosinophil# 0.45 X10^3/uL; Eosinophils% 4.2 % (0-5); Hematocrit 28.5 % (37-47); Hemoglobin 9.2 g/dL (12.0-15.0); Lymphocyte # 1.24 X10^3/ul (0.83-4.51); Lymphocyte % 11.4 % (19-41); Mean Corp Hgb Conc 32.3 g/dL (32-36); Mean Corpuscular Hgb 30.8 pg (27.0-32.0); Mean Corpuscular Volume 95.3 fL (81-99); Mean Platelet Vol. 9.3 fl (6.2-12.0); Monocyte# 0.95 X10^3/uL; Monocyte% 8.8 % (0-10); NRBC Flagged by Analyzer 0 % (0-5); Neutrophil # 8.01 X10^3/uL (2.7-7.7); Neutrophil % 73.9 % (47-70); Platelet Count 289 K/mm3 (150-450); RBC Distribution Width CV 15.4 % (11.6-14.6); Red Blood Count 2.99 M/mm3 (4.2-5.4); White Blood Count 10.8 K/mm3 (4.4-11.0)
[2024-08-03 00:27] LABS: ALB/GLOB Ratio 0.9 RATIO (0.9-2.4); AST(SGOT) 12 U/L (15-37); Alanine Aminotransfer ALT/SGPT 24 U/L (13-56); Albumin, Serum 3.3 g/dL (3.2-5.0); Alkaline Phosphatase 131 U/L (45-117); Anion Gap 10 (5-15); BUN 33 mg/dL (7-18); BUN/Creat Ratio 9.1 RATIO (10-20); Calcium,Total 8.9 mg/dL (8.5-10.1); Chloride 102 mmol/L (98-107); Creatinine, Serum 3.63 mg/dL (0.55-1.02); EST Glomerular Filtration Rate 13 mL/min (>60); Est Glom Filt Rate - Afr Amer 16 mL/min (>60); Estimated Creatinine Clearance 13.48 ml/min; Globulin 3.7 g/dL (2.2-4.2); Glucose 115 mg/dL (74-106); Potassium 3.4 mmol/L (3.5-5.1); Sodium Level 140 mmol/L (136-145)
[2024-08-03 01:00] VITALS: BP 144/66; PULSE 102; RESP 16; TEMP 37.7; O2SAT 97
[2024-08-03] MEDS: Doxycycline 100 MG CAPSULE PO (01:22)
[2024-08-03] MEDS: predniSONE 20 MG Tablet 60 MG PO (01:22)
== END 2024-08-03 01:32 | disposition home or self-care (01) ==
PROVIDERS: Emergency Provider Emergency Medicine; PCP Internal Medicine; Visit Provider Emergency Medicine
DX: J44.9 Chronic obstructive pulmonary disease, unspecified (principal); I12.0 Hypertensive chronic kidney disease with stage 5 chronic kidney disease or end stage renal disease; N18.6 End stage renal disease; I48.91 Unspecified atrial fibrillation; Z99.2 Dependence on renal dialysis; Z87.891 Personal history of nicotine dependence; D64.9 Anemia, unspecified; E78.5 Hyperlipidemia, unspecified; R06.02 Shortness of breath; I25.2 Old myocardial infarction; Z79.899 Other long term (current) drug therapy; Z79.51 Long term (current) use of inhaled steroids; F41.9 Anxiety disorder, unspecified; Z96.619 Presence of unspecified artificial shoulder joint; Z90.49 Acquired absence of other specified parts of digestive tract; Z99.81 Dependence on supplemental oxygen
CPT/HCPCS: 71046; 80053; 85025; 87631; 93005; 99285; A4216

== ENCOUNTER 2024-08-06 04:35 | Inpatient (IN) | payer MEDICARE, OTHER, SELFPAY ==
[2024-08-06] VITALS (24 sets, daily range): BP systolic 115–285; BP diastolic 53–86; PULSE 69–112; RESP 14–25; TEMP 36.2–37.2; O2SAT 90–100; BMI 24.6; BMI 23.8; BMI 23.7; BMI 22.9
--- NOTE | 2024-08-06 05:08 | CT_ITS ---
PROCEDURE: CHEST WITHOUT CONTRAST REASON FOR EXAM: Recent pneumonia. Shortness of breath. COPD. AFib. TECHNIQUE: Chest CT without contrast. COMPARISON: Correlation with chest x-ray dated 08/02/2024. Prior CT thorax dated 06/01/2023 FINDINGS: Hardware: Right shoulder arthroplasty, results in metallic streak artifact, somewhat limiting evaluation of the lung apices. Venous access catheter the right, distal tip terminates within the SVC. Lymph nodes: No mediastinal hilar or axillary lymphadenopathy. Few calcified mediastinal and hilar lymph nodes identified bilaterally. Heart and Vasculature: Vascular calcifications throughout the thoracic aorta. Ascending aorta measures 3.8 cm. The pulmonary arteries have normal contours; noncontrast technique limits evaluation. Mild coronary artery calcifications. Lungs and Airways: [id number] emphysematous changes most prominent of the upper lobes. 6 mm pulmonary nodule within the left upper lobe, anteriorly, more conspicuous on current examination. 3 mm pulmonary nodule within the left lower lobe, posteriorly, stable. Mild patchy reticular airspace disease within the right lower lobe. Linear atelectasis or scarring within the left lower lobe. Few calcified granulomas within the lower lobes. Pleura: Small pleural effusion on the right. No pneumothorax. Upper Abdomen: Visualized portions of the upper abdominal viscera are unremarkable. Bones: Osseous thorax appears intact. S shaped curvature involving the thoracolumbar spine, convex towards the left, superiorly. CT/Chest without Contrast IMPRESSION: 1. [id number] emphysematous changes 2. Mild patchy reticular airspace disease involving the right lower lobe, impro zbigniew in the interval, given differences in technique. 3. Small pleural effusion on the right. 4. Subcentimeter pulmonary nodules within the left lung, as described. One or more dose reduction techniques were used (e.g., Automated exposure contr ol, adjustment of the mA and/or kV according to patient size, use of iterative reconstruction technique). Reading Location: [facility] ([facility]
[2024-08-06] MEDS: LORazepam 2 MG/ML Syringe 0.5 MG IV ×2 (05:16→06:29)
[2024-08-06 05:20] LABS: Absolute Lymphocyte Count 0.84 X10^3/uL (0.83-4.51); Absolute Neutrophil Count 7.9 X10^3/uL (2.0-7.7); Basophil# 0.03 X10^3/uL; Basophil% 0.3 % (0-1); Hematocrit 31.8 % (37-47); Hemoglobin 9.8 g/dL (12.0-15.0); Lymphocyte # 0.84 X10^3/ul (0.83-4.51); Mean Corp Hgb Conc 30.8 g/dL (32-36); Mean Corpuscular Hgb 30.1 pg (27.0-32.0); Mean Corpuscular Volume 97.5 fL (81-99); Mean Platelet Vol. 9.5 fl (6.2-12.0); Monocyte# 0.28 X10^3/uL; NRBC Flagged by Analyzer 0 % (0-5); Neutrophil # 7.94 X10^3/uL (2.7-7.7); Neutrophil % 85.3 % (47-70); Platelet Count 306 K/mm3 (150-450); RBC Distribution Width CV 15.1 % (11.6-14.6); Red Blood Count 3.26 M/mm3 (4.2-5.4); White Blood Count 9.3 K/mm3 (4.4-11.0)
[2024-08-06 05:50] LABS: Anion Gap 11 (5-15); BUN 64 mg/dL (7-18); BUN/Creat Ratio 15.3 RATIO (10-20); Calcium,Total 8.7 mg/dL (8.5-10.1); Chloride 103 mmol/L (98-107); Creatinine, Serum 4.17 mg/dL (0.55-1.02); EST Glomerular Filtration Rate 11 mL/min (>60); Est Glom Filt Rate - Afr Amer 14 mL/min (>60); Estimated Creatinine Clearance 11.15 ml/min; Glucose 126 mg/dL (74-106); Magnesium 2.1 mg/dL (1.6-2.6); Phosphorus 6.3 mg/dL (2.5-4.9); Potassium 4.4 mmol/L (3.5-5.1); Sodium Level 140 mmol/L (136-145)
--- NOTE | 2024-08-06 07:06 | EX.ED.DYSGE1 ---
HPI History of Present Illness Chief Complaint: Shortness of Breath Informant: patient, spouse/S.O. and EMS Narrative Narrative: Patient is a 69-year-old female with past medical history of end-stage renal disease on dialysis as well as hypertension hyperlipidemia and COPD. She wears 3 L of nasal cannula oxygen 24/01. She was recently mated to the hospital secondary to RSV and after a short stay in the hospital was discharged home only to return with secondary pneumonia and was once again admitted for sepsis. She states that she felt she was doing well but in the last few days has been having bouts of shortness of breath. She was seen in the ER on August 02 secondary to shortness of breath and was discharged home. She states that she has been increasing her oxygen up to 5 L which is the max her concentrator will go to and despite this she remains short of breath. She states today she had increased shortness of breath and felt like her heart was racing and she took her pulse ox and checked her heart rate and it was going approximate 150 bpm. She states that she could not catch her breath associated with this despite increasing her oxygen to the max her concentrator to go and secondary to this EMS was called to bring her in for evaluation. [facility] Medical History Anemia of chronic disease Sepsis End stage chronic kidney disease Pneumonia End-stage renal disease (ESRD) Post-menopausal History of steroid therapy History of renal dialysis Blackout Gastric reflux Emphysema, unspecified Shortness of breath on exertion Normal Holter exam History of echocardiogram Hypertension Cardiology follow-up encounter History of heart attack History of atrial fibrillation Hemodialysis catheter malfunction Former cigarette smoker GERD (gastroesophageal reflux disease) Hyperlipidemia History of GI bleed Pleural effusion ESRD (end stage renal disease) on dialysis Essential hypertension NSTEMI (non-ST elevated myocardial infarction) EARNEST (acute kidney injury) Hx of ulcer disease Former smoker Atrial fibrillation Elevated blood pressure reading without diagnosis of hypertension Chronic hypoxemic respiratory failure Acute bronchospasm Acute exacerbation of chronic obstructive pulmonary disease Empyema of pleural space Syncope Bleeding ulcer Anemia requiring transfusions Lung nodules Pleurisy On home oxygen therapy Migraines Hyperglycemia Elevated serum creatinine Sinus tachycardia Fever and chills Dyspnea on exertion Acute bronchospasm COPD exacerbation Leukocytosis Community acquired pneumonia Anxiety Benign essential tremor Former tobacco use Pneumonia due to COVID-19 virus Asthma COPD (chronic obstructive pulmonary disease) Tobacco use Tremor Benign essential hypertension Home Medications ?Medication ?Instructions ?Recorded ?Last Taken ?Type albuterol sulfate 90 mcg/actuation 2 puff inhalation Q4H PRN PRN 08/28/15 07/23/24 History aerosol inhaler (Ventolin HFA) Shortness Of Breath montelukast 10 mg tablet 10 mg PO QHS ALLERGIES 02/25/18 07/22/24 History fluticasone propionate 50 2 spray intranasal QHS ALLERGIES 05/01/21 07/22/24 History mcg/actuation nasal spray,suspension atorvastatin 40 mg tablet 40 mg PO QHS 09/23/23 07/22/24 History isosorbide mononitrate 60 mg 60 mg PO DAILY 09/23/23 07/22/24 History tablet,extended release 24 hr nitroglycerin 0.4 mg sublingual 0.4 mg sublingual Q5-15M PRN chest 09/23/23 Unknown History tablet pain buspirone 10 mg tablet 10 mg PO BID 09/27/23 07/22/24 History vitamin B complex-vitamin C-folic 1 tab PO DAILY 05/22/24 07/22/24 History acid 0.8 mg tablet (Galina-Jose Elias) sucralfate 1 gram tablet 1 g PO DAILY GI 07/08/24 07/22/24 History acetaminophen 650 mg 650 mg PO Q6H PRN pain 07/23/24 Unknown History tablet,extended release (8 Hour Pain Reliever) cholecalciferol (vitamin D3) 25 25 mcg PO MOWEFR 07/23/24 07/20/24 History mcg (1,000 unit) capsule (Vitamin D3) guaifenesin 1,200 mg tablet, 1,200 mg PO BID #30 tabs 07/27/24 Unknown Rx extended release 12 hr (Mucus Relief ER) doxycycline monohydrate 100 mg 100 mg PO BID #14 CAPSULES 08/03/24 Unknown Rx capsule prednisone 20 mg tablet 60 mg (3 x 20 mg) PO DAILY #12 08/03/24 Unknown Rx TABLETS cefdinir 300 mg capsule 300 mg PO X1 08/06/24 Unknown History ipratropium 0.5 mg-albuterol 3 mg 3 ml Q6H PRN PRN wheezing 08/06/24 Unknown History (2.5 mg base)/3 mL nebulization soln levofloxacin 500 mg tablet mg DAILY 02/03/25 Unknown History pantoprazole 40 mg tablet,delayed 40 mg PO BID 08/06/24 Unknown History release prednisone 10 mg tablet mg 08/06/24 Unknown History Allergy/AdvReac Type Severity Reaction Status Date / Time cephalexin monohydrate (From Allergy Chest Verified 08/06/24 04:41 Keflex) tightness vancomycin AdvReac Mild Itching Verified 08/06/24 04:41 Family History Other Adopted Surgical History Hx of surgical procedure Hx of colonoscopy AVF (arteriovenous fistula) (03/13/24) Hx of colonoscopy History of cardiac catheterization Hx of total shoulder replacement Hx of chest tube placement Hx of esophagogastroduodenoscopy H/O bilateral salpingectomy History of herniorrhaphy Hx of tonsillectomy Hx of cholecystectomy Social History adopted: Yes household members: family housing: house Smoking Status: Former smoker how long ago did patient quit smokin years ago alcohol intake: never substance use type: does not use caffeine: Yes Type: coffee Number of servings: 1 ROS ROS ED Constitutional Constitutional ED: Reports other Details: Positive generalized fatigue/weakness ; Denies chills or fever(s) Eyes Eyes: Denies change in vision ENT ENT ED: Denies rhinorrhea or sore throat Cardiovascular Cardiovascular: Reports palpitations and racing heartbeat; Denies chest pain Respiratory/Chest Respiratory/Chest: Reports cough and dyspnea Gastrointestinal Gastrointestinal: Denies abdominal pain, diarrhea, nausea or vomiting Musculoskeletal Musculoskeletal: Denies myalgias Integumentary Denies rash Neurologic Neurologic: Reports weakness; Denies headache(s) Psychiatric Psychiatric: Reports anxiety Hematologic/Lymphatic Hematologic/Lymphatic: Denies easy bleeding or easy bruising Allergic/Immunologic Allergic/Immunologic ED: Denies mouth swelling or tongue swelling EXAM Physical Exam Const Vital Signs: 08/06/24 04:36 08/06/24 04:40 08/06/24 05:20 Temperature 98.3 F 98.3 F Temperature Source Oral Oral Pulse Rate 110 H 112 H Respiratory Rate 21 H 23 H Respiratory Effort Short of Breath Respiratory Depth Deep Respiratory Pattern Tachypnea Blood Pressure 156/83 H 156/83 H Blood Pressure Mean 107 107 Pulse Ox 99 99 Oxygen Delivery Method Non-Rebreather Non-Rebreather Nasal Cannula Oxygen Flow Rate (L/min) 10 4 08/06/24 05:35 08/06/24 05:40 08/06/24 06:00 Temperature 98.3 F 98.3 F Temperature Source Oral Oral Pulse Rate 92 95 91 Respiratory Rate 22 H 21 H 21 H Respiratory Effort Respiratory Depth Respiratory Pattern Blood Pressure 133/65 H 133/64 H 125/63 H Blood Pressure Mean 87 87 83 Pulse Ox 95 96 95 Oxygen Delivery Method Nasal Cannula Nasal Cannula Nasal Cannula Oxygen Flow Rate (L/min) 4 4 4 08/06/24 07:00 Temperature 98.0 F Temperature Source Oral Pulse Rate 90 Respiratory Rate 25 H Respiratory Effort Respiratory Depth Respiratory Pattern Blood Pressure 129/66 H Blood Pressure Mean 87 Pulse Ox 98 Oxygen Delivery Method Nasal Cannula Oxygen Flow Rate (L/min) 4 Positive well nourished and well developed General Appearance ED: well developed HEENT HEENT Narrative: No tongue or lip swelling no oral lesions no airway edema or compromise Eyes PERRL and EOMs intact bilaterally General Eye ED: Yes pale conjunctiva; Negative for scleral icterus Neck supple and no JVD Neck Narrative: No nuchal rigidity or meningeal signs Chest Wall palpation of chest normal Resp Resp Narrative: Patient is in mild respiratory distress with tachypnea and accessory muscle use Breath sounds are diminished throughout with faint crackles noted in the bilateral bases slightly greater on the right. No nasal flaring or retractions Cardio regular rhythm Rate: tachycardic and other Other Details: Tachycardic rate with regular rhythm GI normal to inspection, nondistended, normoactive bowel sounds, non-tender, non-distended and no masses Auscultation: normoactive bowel sounds Palpation: soft Extremity Extremity Narrative: No asymmetric edema no pitting edema negative Homans' sign bilaterally Fistula is noted in the left upper extremity with palpable thrill and good bruit Neuro oriented x3, CN's II-XII intact bilaterally and no sensory deficits noted Neuro Narrative: Patient has a chronic resting tremor Sensorium / Orientation: alert Psych Mood & Affect: anxious Skin no rashes or lesions noted General Skin Exam: Negative for jaundice MDM MDM MDM Narrative Medical decision making narrative: Patient arrived to the ER satting 99 to 100% on a 10 L nonrebreather. She has recently been admitted secondary to RSV and then pneumonia and sepsis. She receives dialysis Tuesday and Tuesday and did receive her Tuesday as she normally does. With her increased shortness of breath this morning there is concern for volume overload or persistent infection. Patient also may have worsening anemia or severe electrolyte abnormality causing her symptoms. As she reported that she was feeling short of breath when her heart was racing and going approximate 150 bpm there is concern for A-fib or a flutter with rapid ventricular response. An EKG was obtained which shows sinus rhythm without ischemic changes. Blood work revealed changes consistent with end-stage renal disease on dialysis. Her hemoglobin however is at baseline of approximately 10 going against acute blood loss anemia. CT of the chest without contrast revealed right sided pleural effusion and infiltrate although this has improved according to the radiologist and the fact that she does not have a fever or white count goes against persistent infection. The patient was able to be taken off the nonrebreather and placed on 4 L nasal cannula and her sats were in the mid 90s. I attempted to ambulate the patient and with just standing and taking 2 steps her heart rate increased to 120 and her pulse ox dropped to 90% and she felt lightheaded and dizzy. Therefore at this time with her tachycardia as well as hypoxia with minimal activity and the fact that she is unsteady with standing would indicate that she is not safe for home and may need readmitted for further evaluation by pulmonology as well as potential PT and OT and long-term/rehab placement. Secondary to this the case was discussed with the hospitalist who agrees to accept the patient for further care History & Record Review Discussion w/independent historian: Patient and Significant other Lab Data Attestation: I reviewed the patient's lab results. Labs: Laboratory Results - last 24 hr 08/06/24 04:44 WBC 9.3 RBC 3.26 L Hgb 9.8 L Hct 31.8 L MCV 97.5 MCH 30.1 MCHC 30.8 L RDW Std Deviation 50.0 H RDW Coeff of Laly 15.1 H Plt Count 306 MPV 9.5 Immature Gran % (Auto) 2.400 H Neut % (Auto) 85.3 H Lymph % (Auto) 9.0 L [place] % (Auto) 3.0 Eos % (Auto) 0.0 Baso % (Auto) 0.3 Absolute Neuts (auto) 7.9 H Absolute Lymphs (auto) 0.84 Nucleated RBC % 0 Sodium 140 Potassium 4.4 Chloride 103 Carbon Dioxide 26.0 Anion Gap 11 BUN 64 H Creatinine 4.17 H Estim Creat Clear Calc 11.15 Est GFR (MDRD) Af Amer 14 L Est GFR (MDRD) Non-Af 11 L BUN/Creatinine Ratio 15.3 Glucose 126 H Calcium 8.7 Phosphorus 6.3 H Magnesium 2.1 TSH 1.310 Radiography Diagnostic Testing: Clinical Impression(s) from Imaging Studies Chest CT 08/06/24 05:08 IMPRESSION: 1. [id number] emphysematous changes 2. Mild patchy reticular airspace disease involving the right lower lobe, improved in the interval, given differences in technique. 3. Small pleural effusion on the right. 4. Subcentimeter pulmonary nodules within the left lung, as described. One or more dose reduction techniques were used (e.g., Automated exposure control, adjustment of the mA and/or kV according to patient size, use of iterative reconstruction technique). Reading Location: [facility] Management Discussion w/another healthcare provider: Hospitalist Discharge Plan Triage Chief Complaint: Shortness of Breath ED Provider: Hoang Foster Dx/Rx/DC Orders Clinical Impression: Acute exacerbation of chronic obstructive pulmonary disease (COPD), Essential hypertension, End stage renal disease on dialysis, Anemia Prescriptions: No Action nitroglycerin 0.4 mg tablet, sublingual 0.4 mg sublingual Q5-15M PRN (Reason: chest pain) Rx Instructions: do not exceed 3 doses per episode isosorbide mononitrate 60 mg tablet extended release 24 hr 60 mg PO DAILY atorvastatin 40 mg tablet 40 mg PO QHS buspirone 10 mg tablet 10 mg PO BID albuterol sulfate [Ventolin HFA] 1 INHALER inhaler 2 puff inhalation Q4H PRN PRN (Reason: Shortness Of Breath) Patient Comments: shortness of breath montelukast 10 MG tablet 10 mg PO QHS fluticasone propionate 50 mcg/actuation spray,suspension 2 spray INTRANASAL QHS Patient Comments: Use 1 Clarence in each nostril once daily. Galina-Jose Elias 0.8 mg tablet 1 tab PO DAILY sucralfate 1 gram tablet 1 g PO DAILY prednisone 10 mg tablet Patient Comments: TAKE BY MOUTH 4 TABLETS DAILY FOR 2 DAYS, THEN 3 TABLETS DAILY FOR 2 DAYS, THEN 2 TABLETS DAILY FOR 2 DAYS, THEN 1 TABLET DAILY FOR 2 DAYS. ipratropium-albuterol 0.5 mg-3 mg(2.5 mg base)/3 mL solution for nebulization 3 ml Q6H PRN PRN (Reason: wheezing) pantoprazole 40 mg tablet,delayed release (DR/EC) 40 mg PO BID levofloxacin 500 mg tablet DAILY cefdinir 300 mg capsule 300 mg PO X1 cholecalciferol (vitamin D3) [Vitamin D3] 25 mcg (1,000 unit) capsule 25 mcg PO MOWEFR Rx Instructions: PT GIVEN VITAMIN AT DIALYSIS acetaminophen [8 Hour Pain Reliever] 650 mg tablet extended release 650 mg PO Q6H PRN (Reason: pain) guaifenesin [Mucus Relief ER] 1,200 mg Tablet Extended Release 12hr 1,200 mg PO BID Qty: 30 0RF Patient Comments: pt unsure if she has been taking this prednisone 20 mg tablet 60 mg PO DAILY Qty: 12 0RF doxycycline monohydrate 100 mg capsule 100 mg PO BID Qty: 14 0RF Primary Care Provider: Julio Draper Referrals: Julio Draper MD [Primary Care Provider] - Print Language: [place] Disposition Disposition: Acute Care Hospital [facility]
--- NOTE | 2024-08-06 07:25 | PCM.HP.STD ---
[facility] - General General Date of Admission: 08/06/24 Date of Service: 08/06/24 Chief Complaint: Worsening show shortness of breath, cough since yesterday HPI Narrative SNEHA CARDENAS, is a 69 F who was discharged on July 27, 2024 after 4 days of hospital stay for sepsis and hypoxia due to RSV pneumonia came to ED with worsening shortness of breath, cough with yellowish-whitish sputum since yesterday. She stated her cough did not completely resolve but got worse yesterday. She also came to ED on 07/16 for shortness of breath and was discharged on prednisone and doxycycline. She has chronic essential tremor of upper body mainly upper extremities. In ED, she was put on nonrebreather but currently requires 5 to 6 L of oxygen. Her heart rate was up to 150s at home, tachypneic but in ED 110/min. In ED, CT chest was done shows chronic emphysematous changes, improved right lower lobe airspace disease/pneumonia. Subcentimeter pulmonary nodules. Patient further admitted [facility] Medical History Anemia of chronic disease Sepsis End stage chronic kidney disease Pneumonia End-stage renal disease (ESRD) Post-menopausal History of steroid therapy History of renal dialysis Blackout Gastric reflux Emphysema, unspecified Shortness of breath on exertion Normal Holter exam History of echocardiogram Hypertension Cardiology follow-up encounter History of heart attack History of atrial fibrillation Hemodialysis catheter malfunction Former cigarette smoker GERD (gastroesophageal reflux disease) Hyperlipidemia History of GI bleed Pleural effusion ESRD (end stage renal disease) on dialysis Essential hypertension NSTEMI (non-ST elevated myocardial infarction) EARNEST (acute kidney injury) Hx of ulcer disease Former smoker Atrial fibrillation Elevated blood pressure reading without diagnosis of hypertension Chronic hypoxemic respiratory failure Acute bronchospasm Acute exacerbation of chronic obstructive pulmonary disease Empyema of pleural space Syncope Bleeding ulcer Anemia requiring transfusions Lung nodules Pleurisy On home oxygen therapy Migraines Hyperglycemia Elevated serum creatinine Sinus tachycardia Fever and chills Dyspnea on exertion Acute bronchospasm COPD exacerbation Leukocytosis Community acquired pneumonia Anxiety Benign essential tremor Former tobacco use Pneumonia due to COVID-19 virus Asthma COPD (chronic obstructive pulmonary disease) Tobacco use Tremor Benign essential hypertension Home Medications ?Medication ?Instructions ?Recorded ?Last Taken ?Type albuterol sulfate 90 mcg/actuation 2 puff inhalation Q4H PRN PRN 08/28/15 07/23/24 History aerosol inhaler (Ventolin HFA) Shortness Of Breath montelukast 10 mg tablet 10 mg PO QHS ALLERGIES 02/25/18 07/22/24 History fluticasone propionate 50 2 spray intranasal QHS ALLERGIES 05/01/21 07/22/24 History mcg/actuation nasal spray,suspension atorvastatin 40 mg tablet 40 mg PO QHS 09/23/23 07/22/24 History isosorbide mononitrate 60 mg 60 mg PO DAILY 09/23/23 07/22/24 History tablet,extended release 24 hr nitroglycerin 0.4 mg sublingual 0.4 mg sublingual Q5-15M PRN chest 09/23/23 Unknown History tablet pain buspirone 10 mg tablet 10 mg PO BID 09/27/23 07/22/24 History vitamin B complex-vitamin C-folic 1 tab PO DAILY 05/22/24 07/22/24 History acid 0.8 mg tablet (Galina-Jose Elias) sucralfate 1 gram tablet 1 g PO DAILY GI 07/08/24 07/22/24 History acetaminophen 650 mg 650 mg PO Q6H PRN pain 07/23/24 Unknown History tablet,extended release (8 Hour Pain Reliever) cholecalciferol (vitamin D3) 25 25 mcg PO MOWEFR 07/23/24 07/20/24 History mcg (1,000 unit) capsule (Vitamin D3) guaifenesin 1,200 mg tablet, 1,200 mg PO BID #30 tabs 07/27/24 Unknown Rx extended release 12 hr (Mucus Relief ER) doxycycline monohydrate 100 mg 100 mg PO BID #14 CAPSULES 08/03/24 Unknown Rx capsule prednisone 20 mg tablet 60 mg (3 x 20 mg) PO DAILY #12 08/03/24 Unknown Rx TABLETS cefdinir 300 mg capsule 300 mg PO X1 08/06/24 Unknown History ipratropium 0.5 mg-albuterol 3 mg 3 ml Q6H PRN PRN wheezing 08/06/24 Unknown History (2.5 mg base)/3 mL nebulization soln levofloxacin 500 mg tablet mg DAILY 08/06/24 Unknown History pantoprazole 40 mg tablet,delayed 40 mg PO BID 08/06/24 Unknown History release prednisone 10 mg tablet mg 08/06/24 Unknown History Allergy/AdvReac Type Severity Reaction Status Date / Time cephalexin monohydrate (From Allergy Chest Verified 08/06/24 04:41 Keflex) tightness vancomycin AdvReac Mild Itching Verified 08/06/24 04:41 Family History Other Adopted Surgical History Hx of surgical procedure Hx of colonoscopy AVF (arteriovenous fistula) (03/13/24) Hx of colonoscopy History of cardiac catheterization Hx of total shoulder replacement Hx of chest tube placement Hx of esophagogastroduodenoscopy H/O bilateral salpingectomy History of herniorrhaphy Hx of tonsillectomy Hx of cholecystectomy Social History adopted: Yes household members: family housing: house Smoking Status: Former smoker how long ago did patient quit smokin years ago alcohol intake: never substance use type: does not use caffeine: Yes Type: coffee Number of servings: 1 ROS ROS Narrative Constitutional: Reports fatigue and weakness. No fever. HEENT: Reports systems reviewed and no addt'l complaints, except as documented Respiratory/Chest: As described in HPI. Chest tightness CVS: No anginal-like symptoms Gastrointestinal: Denies coffee ground emesis, hematemesis or vomiting Genitourinary: Denies burning urination or new urinary tract symptoms Musculoskeletal: Denies acute joint pain or limited range of motion. No acute injury Neurologic: Chronic tremors denies seizure-like symptoms. skin: No ulcer. No rash Endocrinology: Reports systems reviewed and no addt'l complaints, except as documented Hematologic/Lymphatic: Reports systems reviewed and no addt'l complaints, except as documented Rest 14 ROS are negative except as mentioned in HPI Vital Signs Vital Signs Vital Signs: 08/06/24 04:36 08/06/24 04:40 08/06/24 05:20 Temperature 98.3 F 98.3 F Temperature Source Oral Oral Pulse Rate 110 H 112 H Respiratory Rate 21 H 23 H Respiratory Effort Short of Breath Respiratory Depth Deep Respiratory Pattern Tachypnea Blood Pressure 156/83 H 156/83 H Blood Pressure Mean 107 107 Pulse Ox 99 99 Oxygen Delivery Method Non-Rebreather Non-Rebreather Nasal Cannula Oxygen Flow Rate (L/min) 10 4 02/03/25 05:35 08/06/24 05:40 08/06/24 06:00 Temperature 98.3 F 98.3 F Temperature Source Oral Oral Pulse Rate 92 95 91 Respiratory Rate 22 H 21 H 21 H Respiratory Effort Respiratory Depth Respiratory Pattern Blood Pressure 133/65 H 133/64 H 125/63 H Blood Pressure Mean 87 87 83 Pulse Ox 95 96 95 Oxygen Delivery Method Nasal Cannula Nasal Cannula Nasal Cannula Oxygen Flow Rate (L/min) 4 4 4 08/06/24 07:00 Temperature 98.0 F Temperature Source Oral Pulse Rate 90 Respiratory Rate 25 H Respiratory Effort Respiratory Depth Respiratory Pattern Blood Pressure 129/66 H Blood Pressure Mean 87 Pulse Ox 98 Oxygen Delivery Method Nasal Cannula Oxygen Flow Rate (L/min) 4 Weight Weight: 143 lb 8.335 oz Body Mass Index (BMI) 24.6 Physical Exam Narrative General: Alert, Oriented x3, Cooperative HEENT: Atraumatic, PERRLA, EOMI, Normocephalic Oral: Oral mucosa dry. No Gingival or Mucosal Lesions/ Ulcerations Neck: Supple, No JVD, Negative Carotid Bruits Chest wall/Lungs: Air entry severely diminished bilaterally in all lung zepeda. Expiratory rhonchi Cardiovascular: Sinus tachycardia, Normal S1, Normal S2, No M/G/R Abdomen: Bowel Sounds Present, Soft, Non Tender, Non-Distended : No dysuria. No renal angle tenderness. No suprapubic tenderness. Extremities: No edema, Capillary Refill Less than 3 Seconds Skin: No rashes, No breakdown Musculoskeletal: No Tenderness to Palpation of Joints or Extremities. ROM restricted Neurological: Cranial nerves II-XII grossly intact, DTR 2+/4. No acute focal neurological deficit. Psych/Mental Status: Flat affect Results Lab / Micro Data 08/06/24 04:44 08/06/24 04:44 Labs: Laboratory Results - last 24 hr 08/06/24 04:44: WBC 9.3, RBC 3.26 L, Hgb 9.8 L, Hct 31.8 L, MCV 97.5, MCH 30.1, MCHC 30.8 L, RDW Std Deviation 50.0 H, RDW Coeff of Laly 15.1 H, Plt Count 306, MPV 9.5, Immature Gran % (Auto) 2.400 H, Neut % (Auto) 85.3 H, Lymph % (Auto) 9.0 L, [place] % (Auto) 3.0, Eos % (Auto) 0.0, Baso % (Auto) 0.3, Absolute Neuts (auto) 7.9 H, Absolute Lymphs (auto) 0.84, Nucleated RBC % 0, Sodium 140, Potassium 4.4, Chloride 103, Carbon Dioxide 26.0, Anion Gap 11, BUN 64 H, Creatinine 4.17 H, Estim Creat Clear Calc 11.15, Est GFR (MDRD) Af Amer 14 L, Est GFR (MDRD) Non-Af 11 L, BUN/Creatinine Ratio 15.3, Glucose 126 H, Calcium 8.7, Phosphorus 6.3 H, Magnesium 2.1, TSH 1.310 Imaging Radiology Impression Chest CT 08/06/24 05:08 IMPRESSION: 1. [id number] emphysematous changes 2. Mild patchy reticular airspace disease involving the right lower lobe, improved in the interval, given differences in technique. 3. Small pleural effusion on the right. 4. Subcentimeter pulmonary nodules within the left lung, as described. One or more dose reduction techniques were used (e.g., Automated exposure control, adjustment of the mA and/or kV according to patient size, use of iterative reconstruction technique). Reading Location[facility] Assessment & Plan Assessment/Plan (1) Acute exacerbation of chronic obstructive pulmonary disease (COPD): PLAN: Plan This 69-year-old female was admitted for acute on chronic respiratory failure with history of COPD. Patient is only on 3 L of oxygen at rest increased to 4 L on exertion 1. Acute on chronic hypoxic respiratory failure probably from COPD exacerbation: Patient is being admitted in PCU.She was on nonrebreather in ED. ABG ordered. CT chest was done shows chronic emphysematous changes, improved right lower lobe airspace disease/pneumonia. Subcentimeter pulmonary nodules. Twelve-lead EKG shows NSR, LAD 98 bpm. QTc 441 ms. Patient is being managed on scheduled bronchodilator, IV Solu-Medrol, Mucinex, incentive spirometry and Pep. Pneumonia workup ordered. Patient had been multiple rounds of antibiotics recently on doxycycline 2. ESRD on hemodialysis: Hide Inspector consulted. Potassium 4.4. Electrolytes in normal range. BUN/creatinine, 60/4.17. Phosphorus 6. 3, hyperphosphatemia 3. Anemia of chronic disease: H&H 9.8/31.8% on baseline 10 to 11 g. 4. Dyslipidemia 5. Anxiety and depression, essential tremor: On buspirone. Patient was given Ativan IV in the ED. 6. DVT prophylaxis high risk: Heparin 5000 units subcutaneous 3 times daily Living will/advanced directive/end of life care: Patient does not have living will or advanced directive. The patient does not have daycare power of bankruptcy attorney for health but her in ED is next of kin. After discussion of benefits/risks procedures involved with full code, DNR CC arrest and DNR CC, the patient and her opted for full code. Patient does want artificial life support including intubation, tube feed, ventilator and/chest compression, central venous catheter, vasopressor and DC shock if needed Total time spent in [id number]-ldey encounter in discussion of advanced directive 17 minutes. Laboratory Results 08/06/24 04:44: WBC 9.3, RBC 3.26 L, Hgb 9.8 L, Hct 31.8 L, MCV 97.5, MCH 30.1, MCHC 30.8 L, RDW Std Deviation 50.0 H, RDW Coeff of Laly 15.1 H, Plt Count 306, MPV 9.5, Immature Gran % (Auto) 2.400 H, Neut % (Auto) 85.3 H, Lymph % (Auto) 9.0 L, [place] % (Auto) 3.0, Eos % (Auto) 0.0, Baso % (Auto) 0.3, Absolute Neuts (auto) 7.9 H, Absolute Lymphs (auto) 0.84, Nucleated RBC % 0, Sodium 140, Potassium 4.4, Chloride 103, Carbon Dioxide 26.0, Anion Gap 11, BUN 64 H, Creatinine 4.17 H, Estim Creat Clear Calc 11.15, Est GFR (MDRD) Af Amer 14 L, Est GFR (MDRD) Non-Af 11 L, BUN/Creatinine Ratio 15.3, Glucose 126 H, Calcium 8.7, Phosphorus 6.3 H, Magnesium 2.1, TSH 1.310 08/06/24 07:36: D-Dimer Quant (PE/DVT) Pending Charges/Coding Visit Charges Inpatient E&M: 46829 Init Hosp L3 Procedures Hospitalists Procedures: 79722 Advncd Care Plan 30 Min
[2024-08-06 08:11] LABS: Base Excess 4 mmol/L (-2 to +2); Bicarbonate 29.4 mmol/L (22-26); Blood Gas Specimen Type ART; Mode Not entered; O2 Delivery Device Not entered; PO2 83 mmHG (75-100); SITE R Radial; SO2 96 % (95-99); Total Carbon Dioxide 31 mmol/L; pCO2 49.7 mmHg (35-45); pH 7.38 (7.35-7.45)
[2024-08-06 09:02] LABS: D-Dimer Quantitative (DVT/PE) 1.01 FEU/ug/m (0.27-0.49)
--- NOTE | 2024-08-06 09:27 | CT_ITS ---
EXAM: CT Angiography Chest Without and With Intravenous Contrast CLINICAL INDICATION: TECHNIQUE: Axial computed tomographic angiography images of the chest without and with intravenous contrast. This CT exam was performed using one or more of the following dose reduction techniques: automated exposure control, adjustment of the mA and/or kV according to patient size, and/or use of iterative reconstruction technique. MIP reconstructed images were created and reviewed. COMPARISON: CTA Chest dated 06/01/2023 FINDINGS: LIMITATIONS: Suboptimal opacification of the pulmonary arteries. PULMONARY ARTERIES: No pulmonary embolism is identified. Some of the distal pulmonary arteries cannot be evaluated due to suboptimal opacification. AORTA: Scattered calcified atherosclerotic disease of aorta. No thoracic aortic aneurysm. LUNGS AND PLEURAL SPACES: Lung emphysema. Nodular density of the right lower lobe measures up to 1.6 cm, new since 06/01/2023. This is concerning for developing neoplastic process. Further evaluation with tissue biopsy or PET-CT is recommended. Right pleural effusion with compressive atelectasis. No mass. No pneumothorax. HEART: Unremarkable. No cardiomegaly. No significant pericardial effusion. No evidence of RV dysfunction. BONES/JOINTS: No acute fracture. No dislocation. SOFT TISSUES: Unremarkable. LYMPH NODES: Unremarkable. No enlarged lymph nodes. CT/CTA Chest W/WO Contrast IMPRESSION: 1. No pulmonary embolism is identified. Some of the distal pulmonary arteries cannot be evaluated due to suboptimal opacification. 2. Nodular density of the right lower lobe measures up to 1.6 cm, new since . This is concerning for developing neoplastic process. Further evaluation with tissue biopsy or PET-CT is recomme nded. 3. Right pleural effusion with compressive atelectasis. Reading Location: [facility]
[2024-08-06] MEDS: 0.9% Normal Saline 1,000 ML IV.SOLN. 1000 ML OPERA.SITE (09:44)
[2024-08-06] MEDS: PureFlow B 2K Dialysis Soln 1 BAG 6 BAG PF (09:44)
[2024-08-06] MEDS: 0.9% Saline Lock 10 ML Syringe IV ×2 (09:45→14:27)
[2024-08-06] MEDS: Heparin 10,000 UNITS/10 ML Vial IV (09:45)
[2024-08-06 10:13] LABS: BNP,B-Type NATRIURETIC PEPTIDE 138.6 pg/mL (0-100)
[2024-08-06] MEDS: Ipratropium/Albuterol Sulfate 3 ML AMPUL.NEB INHALATION ×3 (11:40→20:00)
--- NOTE | 2024-08-06 12:44 | PCM.CONS.R ---
Assessment & Plan Assessment/Plan (1) End stage renal disease on dialysis: (2) Acute exacerbation of chronic obstructive pulmonary disease (COPD): PLAN: Plan - ESRD on hemodialysis Tuesday; patient to undergo hemodialysis today and attempting around 2 L fluid removal as patient/blood pressure tolerates. While in hospital we will maintain dialysis schedule on Tuesday unless acute need arises. Will evaluate dry weight, possibly lower dry weight in hospital. Blood pressures acceptable. Patient reports no recent cramping at kidney center. -Acute exacerbation of COPD; overall patient reports breathing has improved. She is on O2 nasal cannula at baseline. Patient is receiving IV steroids, oral antibiotics, breathing treatments. Attempting around 2 L fluid removal with dialysis. HPI Consult Data Date of Consult: 08/06/24 HPI Narrative HPI Narrative: SNEHA CARDENAS, is a 69 F with past medical history significant for COPD on home O2, ESRD on hemodialysis Tuesday who presented to the emergency room early this morning with complaints of shortness of breath, difficulty breathing. Patient was admitted for acute exacerbation COPD. Nephrology consulted as patient has history of ESRD, for dialysis management. Patient reports she had been feeling better until this morning when she got up to come to dialysis had difficulty breathing, heart rate increased and also having thick sputum production. Denies any fevers, vomiting or diarrhea. Patient's last hemodialysis was Tuesday at the [facility] [place]. [facility] Medical History Anemia of chronic disease Sepsis End stage chronic kidney disease Pneumonia End-stage renal disease (ESRD) Post-menopausal History of steroid therapy History of renal dialysis Blackout Gastric reflux Emphysema, unspecified Shortness of breath on exertion Normal Holter exam History of echocardiogram Hypertension Cardiology follow-up encounter History of heart attack History of atrial fibrillation Hemodialysis catheter malfunction Former cigarette smoker GERD (gastroesophageal reflux disease) Hyperlipidemia History of GI bleed Pleural effusion ESRD (end stage renal disease) on dialysis Essential hypertension NSTEMI (non-ST elevated myocardial infarction) EARNEST (acute kidney injury) Hx of ulcer disease Former smoker Atrial fibrillation Elevated blood pressure reading without diagnosis of hypertension Chronic hypoxemic respiratory failure Acute bronchospasm Acute exacerbation of chronic obstructive pulmonary disease Empyema of pleural space Syncope Bleeding ulcer Anemia requiring transfusions Lung nodules Pleurisy On home oxygen therapy Migraines Hyperglycemia Elevated serum creatinine Sinus tachycardia Fever and chills Dyspnea on exertion Acute bronchospasm COPD exacerbation Leukocytosis Community acquired pneumonia Anxiety Benign essential tremor Former tobacco use Pneumonia due to COVID-19 virus Asthma COPD (chronic obstructive pulmonary disease) Tobacco use Tremor Benign essential hypertension Home Medications ?Medication ?Instructions ?Recorded ?Last Taken ?Type albuterol sulfate 90 mcg/actuation 2 puff inhalation Q4H PRN PRN 08/28/15 07/23/24 History aerosol inhaler (Ventolin HFA) Shortness Of Breath montelukast 10 mg tablet 10 mg PO QHS ALLERGIES 02/25/18 07/22/24 History fluticasone propionate 50 2 spray intranasal QHS ALLERGIES 05/01/21 07/22/24 History mcg/actuation nasal spray,suspension atorvastatin 40 mg tablet 40 mg PO QHS 09/23/23 07/22/24 History isosorbide mononitrate 60 mg 60 mg PO DAILY 09/23/23 07/22/24 History tablet,extended release 24 hr nitroglycerin 0.4 mg sublingual 0.4 mg sublingual Q5-15M PRN chest 09/23/23 Unknown History tablet pain buspirone 10 mg tablet 10 mg PO BID 09/27/23 07/22/24 History vitamin B complex-vitamin C-folic 1 tab PO DAILY 05/22/24 07/22/24 History acid 0.8 mg tablet (Galina-Jose Elias) sucralfate 1 gram tablet 1 g PO DAILY GI 07/08/24 07/22/24 History acetaminophen 650 mg 650 mg PO Q6H PRN pain 07/23/24 Unknown History tablet,extended release (8 Hour Pain Reliever) cholecalciferol (vitamin D3) 25 25 mcg PO MOWEFR 07/23/24 07/20/24 History mcg (1,000 unit) capsule (Vitamin D3) guaifenesin 1,200 mg tablet, 1,200 mg PO BID #30 tabs 07/27/24 Unknown Rx extended release 12 hr (Mucus Relief ER) doxycycline monohydrate 100 mg 100 mg PO BID #14 CAPSULES 08/03/24 Unknown Rx capsule prednisone 20 mg tablet 60 mg (3 x 20 mg) PO DAILY #12 08/03/24 Unknown Rx TABLETS ipratropium 0.5 mg-albuterol 3 mg 3 ml continuous nebulization Q6H 08/06/24 Unknown History (2.5 mg base)/3 mL nebulization PRN PRN wheezing soln pantoprazole 40 mg tablet,delayed 40 mg PO BID 08/06/24 Unknown History release Allergy/AdvReac Type Severity Reaction Status Date / Time cephalexin monohydrate (From Allergy Chest Verified 08/06/24 04:41 Keflex) tightness vancomycin AdvReac Mild Itching Verified 08/06/24 04:41 Family History Other Adopted Surgical History Hx of surgical procedure Hx of colonoscopy AVF (arteriovenous fistula) (03/13/24) Hx of colonoscopy History of cardiac catheterization Hx of total shoulder replacement Hx of chest tube placement Hx of esophagogastroduodenoscopy H/O bilateral salpingectomy History of herniorrhaphy Hx of tonsillectomy Hx of cholecystectomy Social History adopted: Yes household members: family housing: house Smoking Status: Former smoker how long ago did patient quit smokin years ago alcohol intake: never substance use type: does not use caffeine: Yes Type: coffee Number of servings: 1 ROS ROS Narrative As in HPI Physical Exam Narrative Alert and oriented x 3, no apparent distress S1, S2, RRR Diminished breath sounds, coarse cough. On O2 nasal cannula Abdomen soft, nontender No edema Lab / Micro Data 08/06/24 04:44 08/06/24 04:44 Labs: Laboratory Results - last 24 hr 08/06/24 04:44: WBC 9.3, RBC 3.26 L, Hgb 9.8 L, Hct 31.8 L, MCV 97.5, MCH 30.1, MCHC 30.8 L, RDW Std Deviation 50.0 H, RDW Coeff of Laly 15.1 H, Plt Count 306, MPV 9.5, Immature Gran % (Auto) 2.400 H, Neut % (Auto) 85.3 H, Lymph % (Auto) 9.0 L, [place] % (Auto) 3.0, Eos % (Auto) 0.0, Baso % (Auto) 0.3, Absolute Neuts (auto) 7.9 H, Absolute Lymphs (auto) 0.84, Nucleated RBC % 0, Sodium 140, Potassium 4.4, Chloride 103, Carbon Dioxide 26.0, Anion Gap 11, BUN 64 H, Creatinine 4.17 H, Estim Creat Clear Calc 11.15, Est GFR (MDRD) Af Amer 14 L, Est GFR (MDRD) Non-Af 11 L, BUN/Creatinine Ratio 15.3, Glucose 126 H, Calcium 8.7, Phosphorus 6.3 H, Magnesium 2.1, B-Natriuretic Peptide 138.6 H, TSH 1.310 08/06/24 07:36: D-Dimer Quant (PE/DVT) 1.01 H* Micro: Microbiology 08/06/24 07:36 Mucosa - Nose SARS-CoV-2, Influenza & RSV (PCR) - Final RSV ABG Data ABG results: ABG 08/06/24 08:08 Specimen Type ART Sample Site R Radial pH 7.38 Bicarbonate Actual 29.4 H Total CO2 31 Base Excess 4 H O2 Saturation 96 O2 % 10.0 ABG pCO2 49.7 H ABG pO2 83 Venu Test N/A O2 Delivery Device Not entered Vent Mode Not entered Imaging Radiology Impression Chest CT 08/06/24 05:08 IMPRESSION: 1. [id number] emphysematous changes 2. Mild patchy reticular airspace disease involving the right lower lobe, improved in the interval, given differences in technique. 3. Small pleural effusion on the right. 4. Subcentimeter pulmonary nodules within the left lung, as described. One or more dose reduction techniques were used (e.g., Automated exposure control, adjustment of the mA and/or kV according to patient size, use of iterative reconstruction technique). Reading Location: [facility] Chest CTA 08/06/24 09:27 IMPRESSION: 1. No pulmonary embolism is identified. Some of the distal pulmonary arteries cannot be evaluated due to suboptimal opacification. 2. Nodular density of the right lower lobe measures up to 1.6 cm, new since 06/01/2023. This is concerning for developing neoplastic process. Further evaluation with tissue biopsy or PET-CT is recommended. 3. Right pleural effusion with compressive atelectasis. Reading Location: [facility]
--- NOTE | 2024-08-06 12:54 | CASEMGMT ---
JAMI GUERRERO readmission assessment: Pt was admitted on 07/23/24 and DCd home on 07/27/24. Pt is set up with [facility] services and had a palliative referral made. Pt states she is taking all of her medications as ordered and had a F/U appointment with PCP. Pt has O2 through [facility]. Pt has been using O2 as ordered. Pt returned to [facility] on 08/06/24 for Acute on Chronic Resp. Failure. Pt goal is to return back home with resumption of [facility] SN, PT and OT. Pt denies any further DC needs at this time. JAMI GUERRERO notified CM on floor, CM to follow for safe DC plan.
[2024-08-06] MEDS: Doxycycline 100 MG CAPSULE PO ×2 (14:26→21:31)
[2024-08-06] MEDS: Heparin Injection (Vial) 5,000 UNIT/ML VIAL 5000 UNIT SC ×2 (14:26→21:31)
[2024-08-06] MEDS: busPIRone 5 MG Tablet 10 MG PO ×3 (14:26→23:06)
[2024-08-06] MEDS: Cholecalciferol (VIT D3) 25 MCG TABLET (1,000 UNITS) PO (14:26)
--- NOTE | 2024-08-06 14:36 | CHAPLAIN ---
Type of Pastoral Visit _x__ Initial Visit ___ Follow-up Visit ___ On-call Visit ___ General Patient Visit ___ Spiritual Assessment ___ Family Conference ___ Bereavement ___ Rapid Response ___ Code Blue ___ Other (describe below) Pastoral Care Referral From _x__ Patient ___ Family ___ Nurse ___ Physician ___ Chassis Mechanic ___ Aeronautical Engineering Officer ___ Other (describe below) Sacrament/Intervention ___ Active listening ___ Anointing ___ Orthodox ___ Bereavement ___ Communion ___ Henna exploration ___ ___ Life review _x__ Prayer ___ Reconciliation ___ Sacrament of Sick _x__ Supportive presence ___ Wedding ___ Other (describe below) Pastoral Comments patient has been seen recently during an admission last month; pt is having breathing issues and so this visit was brief to allow time for rest; pt again welcomes a prayer; pt admits that she has other worries and concerns but those are for another day; focus of patient is to get well; supportive presence and an offer of future visits given
[2024-08-06] MEDS: Isosorbide Mononitrate 60 MG Tablet PO (15:40)
[2024-08-06] MEDS: guaiFENesin 10 ML UDC (200MG/10ML) PO ×3 (15:41→21:32)
[2024-08-06] MEDS: Atorvastatin Calcium 40 MG Tablet PO (21:31)
[2024-08-06] MEDS: Fluticasone 0.05% 1 SPRAY NASAL.SRY 2 SPRAY NASAL (21:32)
--- NOTE | 2024-08-06 22:32 | PCM.HOSP.N ---
Hospitalist Note Patient noting increased anxiety and requesting medication. Specifically asked for ativan which was noted to have been given prior in the ED x 1. Will instead trial an additional dose of her buspar regimen.
[2024-08-07] VITALS (11 sets, daily range): BP systolic 128–142; BP diastolic 61–68; PULSE 87–107; RESP 17–21; TEMP 36.4–36.9; O2SAT 92–94; BMI 25.9
[2024-08-07] MEDS: Ipratropium/Albuterol Sulfate 3 ML AMPUL.NEB INHALATION ×7 (00:22→23:25)
[2024-08-07] MEDS: guaiFENesin 10 ML UDC (200MG/10ML) PO ×6 (03:04→21:56)
[2024-08-07] MEDS: Sucralfate 1 GM Tablet PO (05:58)
[2024-08-07] MEDS: Heparin Injection (Vial) 5,000 UNIT/ML VIAL 5000 UNIT SC ×3 (05:58→21:55)
[2024-08-07 08:00] LABS: Absolute Lymphocyte Count 0.95 X10^3/uL (0.83-4.51); Absolute Neutrophil Count 7.5 X10^3/uL (2.0-7.7); Basophil# 0.05 X10^3/uL; Basophil% 0.6 % (0-1); Hematocrit 30.9 % (37-47); Hemoglobin 9.8 g/dL (12.0-15.0); Lymphocyte # 0.95 X10^3/ul (0.83-4.51); Lymphocyte % 10.5 % (19-41); Mean Corp Hgb Conc 31.7 g/dL (32-36); Mean Corpuscular Hgb 30.5 pg (27.0-32.0); Mean Corpuscular Volume 96.3 fL (81-99); Mean Platelet Vol. 9.4 fl (6.2-12.0); Monocyte# 0.28 X10^3/uL; Monocyte% 3.1 % (0-10); NRBC Flagged by Analyzer 0 % (0-5); Neutrophil # 7.54 X10^3/uL (2.7-7.7); Neutrophil % 83.5 % (47-70); Platelet Count 333 K/mm3 (150-450); RBC Distribution Width CV 15.3 % (11.6-14.6); RBC Distribution Width SD 49.5 fl (35.1-43.9); Red Blood Count 3.21 M/mm3 (4.2-5.4)
[2024-08-07] MEDS: busPIRone 5 MG Tablet 10 MG PO ×2 (08:51→21:55)
[2024-08-07] MEDS: Doxycycline 100 MG CAPSULE PO ×2 (08:51→21:55)
[2024-08-07] MEDS: Pantoprazole Sodium 40 MG Tablet PO ×2 (08:51→21:55)
[2024-08-07] MEDS: Isosorbide Mononitrate 60 MG Tablet PO (08:51)
[2024-08-07 09:09] LABS: Anion Gap 12 (5-15); BUN 56 mg/dL (7-18); Chloride 101 mmol/L (98-107); Creatinine, Serum 3.49 mg/dL (0.55-1.02); EST Glomerular Filtration Rate 14 mL/min (>60); Est Glom Filt Rate - Afr Amer 17 mL/min (>60); Estimated Creatinine Clearance 14.66 ml/min; Glucose 97 mg/dL (74-106); Potassium 4.5 mmol/L (3.5-5.1); Sodium Level 136 mmol/L (136-145)
--- NOTE | 2024-08-07 09:41 | PN.HOSP_ITS ---
Reason for Visit Reason for Visit: Diagnoses Chronic obstructive pulmonary disease with (acute) exacerbation (08/06/24) Objective Data Objective Data Vital Signs: Vital Signs Temp Pulse Resp BP Pulse Ox O2 Del Method O2 Flow Rate 98.5 F 95 18 142/62 H 92 Nasal Cannula 3 08/07/24 08:55 08/07/24 08:55 08/07/24 08:55 08/07/24 08:55 08/07/24 08:55 08/07/24 09:06 08/07/24 09:06 Oxygen Flow Rate (L/min) 3 Oxygen Delivery Method Nasal Cannula Weight: 150 lb 12.739 oz Body Mass Index (BMI) 25.9 Intake & Output: Intake and Output for Last 24 Hours 08/05/24 08/06/24 08/07/24 23:59 23:59 23:59 Intake Total 270 / 270 Output Total 1999 200 / 200 Balance -1730 / -1730 -200 / -200 Lab / Micro Data 08/07/24 07:18 08/07/24 07:18 Labs: Laboratory Results - last 24 hr 08/06/24 04:44: B-Natriuretic Peptide 138.6 H 08/07/24 07:18: WBC 9.0, RBC 3.21 L, Hgb 9.8 L, Hct 30.9 L, MCV 96.3, MCH 30.5, MCHC 31.7 L, RDW Std Deviation 49.5 H, RDW Coeff of Laly 15.3 H, Plt Count 333, MPV 9.4, Immature Gran % (Auto) 2.300 H, Neut % (Auto) 83.5 H, Lymph % (Auto) 10.5 L, [place] % (Auto) 3.1, Eos % (Auto) 0.0, Baso % (Auto) 0.6, Absolute Neuts (auto) 7.5, Absolute Lymphs (auto) 0.95, Nucleated RBC % 0, Sodium 136, Potassium 4.5, Chloride 101, Carbon Dioxide 23.0, Anion Gap 12, BUN 56 H, Creatinine 3.49 H, Estim Creat Clear Calc 14.66, Est GFR (MDRD) Af Amer 17 L, Est GFR (MDRD) Non-Af 14 L, BUN/Creatinine Ratio 16.0, Glucose 97, Calcium 9.0, TSH 1.140 Micro: Microbiology 08/06/24 07:36 Mucosa - Nose SARS-CoV-2, Influenza & RSV (PCR) - Final RSV Radiography Diagnostic Testing: Radiology Impression Chest CTA 08/06/24 09:27 IMPRESSION: 1. No pulmonary embolism is identified. Some of the distal pulmonary arteries cannot be evaluated due to suboptimal opacification. 2. Nodular density of the right lower lobe measures up to 1.6 cm, new since 06/01/2023. This is concerning for developing neoplastic process. Further evaluation with tissue biopsy or PET-CT is recommended. 3. Right pleural effusion with compressive atelectasis. Reading Location: [facility] Physical Exam Narrative Patient is still short of breath and has chest congestion. States that she has a history of COPD. RSV positive. Denies chest pain. Physical exam: General: Alert, Oriented x3, Cooperative HEENT: Atraumatic, PERRLA, EOMI, Normocephalic Oral: Oral mucosa dry. No Gingival or Mucosal Lesions/ Ulcerations Neck: Supple, No JVD, Negative Carotid Bruits Chest wall/Lungs: Air entry severely diminished bilaterally in all lung zepeda. Expiratory rhonchi and wheezing. Mild tachypnea Cardiovascular: Sinus tachycardia, Normal S1, Normal S2, No M/G/R Abdomen: Bowel Sounds Present, Soft, Non Tender, Non-Distended : No dysuria. No renal angle tenderness. No suprapubic tenderness. Extremities: No edema, Capillary Refill Less than 3 Seconds Skin: No rashes, No breakdown Musculoskeletal: No Tenderness to Palpation of Joints or Extremities. ROM restricted Neurological: Cranial nerves II-XII grossly intact, DTR 2+/4. No acute focal neurological deficit. Psych/Mental Status: Flat affect Assessment & Plan Assessment/Plan (1) Acute exacerbation of chronic obstructive pulmonary disease (COPD): PLAN: Plan This 69-year-old female was admitted for acute on chronic respiratory failure with history of COPD. Patient is only on 3 L of oxygen at rest increased to 4 L on exertion 1. Acute on chronic hypoxic respiratory failure probably from COPD exacerbation: Patient is being admitted in PCU.She was on nonrebreather in ED. ABG ordered. CT chest was done shows chronic emphysematous changes, improved right lower lobe airspace disease/pneumonia. Subcentimeter pulmonary nodules. Twelve-lead EKG shows NSR, LAD 98 bpm. QTc 441 ms. Patient is being managed on scheduled bronchodilator, IV Solu-Medrol, Mucinex, incentive spirometry and Pep. Pneumonia workup ordered. Patient had been multiple rounds of antibiotics recently on doxycycline 08/07: CTPA does not major arteries pulmonary embolism though it was suboptimal opacification. Triple screen was positive of RSV. Sputum culture preliminary does not show organism. 2. ESRD on hemodialysis: Global Marketing Coordinator consulted. Potassium 4.4. Electrolytes in normal range. BUN/creatinine, 60/4.17. Phosphorus 6. 3, hyperphosphatemia /: Patient had hemodialysis yesterday 3. Anemia of chronic disease: H&H 9.8/31.8% on baseline 10 to 11 g. 4. Dyslipidemia 5. Anxiety and depression, essential tremor: On buspirone. Patient was given Ativan IV in the ED. 6. DVT prophylaxis high risk: Heparin 5000 units subcutaneous 3 times daily Living will/advanced directive/end of life care: Patient does not have living will or advanced directive. The patient does not have daycare power of employment law attorney for health but her in ED is next of kin. After discussion of benefits/risks procedures involved with full code, DNR CC arrest and DNR CC, the patient and her opted for full code. Patient does want artificial life support including intubation, tube feed, ventilator and/chest compression, central venous catheter, vasopressor and DC shock if needed Laboratory Results 08/06/24 04:44: WBC 9.3, RBC 3.26 L, Hgb 9.8 L, Hct 31.8 L, MCV 97.5, MCH 30.1, MCHC 30.8 L, RDW Std Deviation 50.0 H, RDW Coeff of Laly 15.1 H, Plt Count 306, MPV 9.5, Immature Gran % (Auto) 2.400 H, Neut % (Auto) 85.3 H, Lymph % (Auto) 9.0 L, [place] % (Auto) 3.0, Eos % (Auto) 0.0, Baso % (Auto) 0.3, Absolute Neuts (auto) 7.9 H, Absolute Lymphs (auto) 0.84, Nucleated RBC % 0, Sodium 140, Potassium 4.4, Chloride 103, Carbon Dioxide 26.0, Anion Gap 11, BUN 64 H, C reatinine 4.17 H, Estim Creat Clear Calc 11.15, Est GFR (MDRD) Af Amer 14 L, Est GFR (MDRD) Non-Af 11 L, BUN/Creatinine Ratio 15.3, Glucose 126 H, Calcium 8.7, P hosphorus 6.3 H, Magnesium 2.1, TSH 1.310 08/06/24 07:36: D-Dimer Quant (PE/DVT) Pending Charges/Coding Visit Charges Inpatient E&M: 65489 Subs Hosp L2
--- NOTE | 2024-08-07 13:26 | PCM.PN.REN ---
Subjective Subjective no new events Objective Data Objective Data Vital Signs: Vital Signs Temp Pulse Resp BP Pulse Ox O2 Del Method O2 Flow Rate 98.5 F 98 21 H 142/62 H 92 Nasal Cannula 3 08/07/24 08:55 08/07/24 10:25 08/07/24 10:25 08/07/24 08:55 08/07/24 08:55 08/07/24 09:06 08/07/24 11:54 Oxygen Flow Rate (L/min) 3 Oxygen Delivery Method Nasal Cannula Weight: 68.4 kg Body Mass Index (BMI) 25.9 Intake & Output: Intake and Output for Last 24 Hours 08/05/24 08/06/24 08/07/24 23:59 23:59 23:59 Intake Total 270 / 270 250 / 250 Output Total 1999 200 / 200 Balance -1730 / -1730 50 / 50 Lab / Micro Data 08/07/24 07:18 08/07/24 07:18 Labs: Laboratory Results - last 24 hr 08/07/24 07:18: WBC 9.0, RBC 3.21 L, Hgb 9.8 L, Hct 30.9 L, MCV 96.3, MCH 30.5, MCHC 31.7 L, RDW Std Deviation 49.5 H, RDW Coeff of Laly 15.3 H, Plt Count 333, MPV 9.4, Immature Gran % (Auto) 2.300 H, Neut % (Auto) 83.5 H, Lymph % (Auto) 10.5 L, [place] % (Auto) 3.1, Eos % (Auto) 0.0, Baso % (Auto) 0.6, Absolute Neuts (auto) 7.5, Absolute Lymphs (auto) 0.95, Nucleated RBC % 0, Sodium 136, Potassium 4.5, Chloride 101, Carbon Dioxide 23.0, Anion Gap 12, BUN 56 H, Creatinine 3.49 H, Estim Creat Clear Calc 14.66, Est GFR (MDRD) Af Amer 17 L, Est GFR (MDRD) Non-Af 14 L, BUN/Creatinine Ratio 16.0, Glucose 97, Calcium 9.0, TSH 1.140 Micro: Microbiology 08/07/24 00:40 Sputum, Expectorated/Coughed Gram Stain - Final 08/06/24 07:36 Mucosa - Nose SARS-CoV-2, Influenza & RSV (PCR) - Final RSV Physical Exam Narrative Alert and oriented x 3, no apparent distress S1, S2, RRR Diminished breath sounds, coarse cough. On O2 nasal cannula Abdomen soft, nontender No edema Assessment & Plan Assessment/Plan (1) End stage renal disease on dialysis: (2) Acute exacerbation of chronic obstructive pulmonary disease (COPD): PLAN: Plan - ESRD on hemodialysis Tuesday; HD today -Acute exacerbation of COPD; overall patient reports breathing has improved. She is on O2 nasal cannula at baseline. Patient is receiving IV steroids, oral antibiotics, breathing treatments.
[2024-08-07] MEDS: Fluticasone 0.05% 1 SPRAY NASAL.SRY 2 SPRAY NASAL (21:55)
[2024-08-07] MEDS: Atorvastatin Calcium 40 MG Tablet PO (21:55)
[2024-08-07] MEDS: Montelukast 10 MG Tablet PO (21:55)
[2024-08-08] VITALS (20 sets, daily range): BP systolic 112–220; BP diastolic 56–70; PULSE 81–113; RESP 15–20; TEMP 36.4–36.9; O2SAT 94–100; BMI 25.9; BMI 25.0
[2024-08-08] MEDS: guaiFENesin 10 ML UDC (200MG/10ML) PO ×6 (02:57→20:23)
[2024-08-08] MEDS: 0.9% Saline Lock 10 ML Syringe IV ×2 (02:58→15:36)
[2024-08-08] MEDS: Ipratropium/Albuterol Sulfate 3 ML AMPUL.NEB INHALATION ×6 (03:24→23:46)
[2024-08-08] MEDS: Sucralfate 1 GM Tablet PO (05:59)
[2024-08-08] MEDS: Heparin Injection (Vial) 5,000 UNIT/ML VIAL 5000 UNIT SC ×3 (05:59→20:22)
[2024-08-08] MEDS: 0.9% Normal Saline 1,000 ML IV.SOLN. 1000 ML OPERA.SITE (08:17)
[2024-08-08] MEDS: PureFlow B 2K Dialysis Soln 1 BAG 6 BAG PF (08:18)
[2024-08-08] MEDS: Heparin 10,000 UNITS/10 ML Vial 2000 UNITS IV (08:18)
[2024-08-08] MEDS: Pantoprazole Sodium 40 MG Tablet PO ×2 (11:47→20:22)
[2024-08-08] MEDS: Isosorbide Mononitrate 60 MG Tablet PO (11:47)
[2024-08-08] MEDS: busPIRone 5 MG Tablet 10 MG PO ×2 (11:47→20:22)
[2024-08-08] MEDS: Cholecalciferol (VIT D3) 25 MCG TABLET (1,000 UNITS) PO (11:47)
[2024-08-08] MEDS: Doxycycline 100 MG CAPSULE PO ×2 (11:47→20:22)
[2024-08-08] MEDS: Acetaminophen 325 MG Tablet 650 MG PO (12:27)
--- NOTE | 2024-08-08 16:12 | PCM.PN.REN ---
Subjective Subjective no new events Objective Data Objective Data Vital Signs: Vital Signs Temp Pulse Resp BP Pulse Ox O2 Del Method O2 Flow Rate 98.1 F 99 18 127/63 H 98 Nasal Cannula 3 08/08/24 15:42 08/08/24 15:42 08/08/24 15:42 08/08/24 15:42 08/08/24 15:42 08/08/24 15:42 08/08/24 15:42 Oxygen Flow Rate (L/min) 3 Oxygen Delivery Method Nasal Cannula Weight: 66.3 kg Body Mass Index (BMI) 25.0 Intake & Output: Intake and Output for Last 24 Hours 08/06/24 08/07/24 08/08/24 23:59 23:59 23:59 Intake Total 270 / 270 490 / 490 Output Total 1999 200 / 200 2450 / 2450 Balance -1730 / -1730 290 / 290 -2450 / -2450 Lab / Micro Data 08/07/24 07:18 08/07/24 07:18 Micro: Microbiology 08/07/24 00:40 Sputum, Expectorated/Coughed Gram Stain - Final 08/06/24 07:36 Mucosa - Nose SARS-CoV-2, Influenza & RSV (PCR) - Final RSV Physical Exam Narrative Alert and oriented x 3, no apparent distress S1, S2, RRR Diminished breath sounds, coarse cough. On O2 nasal cannula Abdomen soft, nontender No edema Assessment & Plan Assessment/Plan (1) End stage renal disease on dialysis: (2) Acute exacerbation of chronic obstructive pulmonary disease (COPD): PLAN: Plan - ESRD on hemodialysis Tuesday -Acute exacerbation of COPD; overall patient reports breathing has improved. She is on O2 nasal cannula at baseline. Patient is receiving IV steroids, oral antibiotics, breathing treatments.
--- NOTE | 2024-08-08 16:59 | PCM.PN.HOSP ---
Reason for Visit Reason for Visit: Diagnoses Chronic obstructive pulmonary disease with (acute) exacerbation (08/06/24) End stage renal disease (08/06/24) Dependence on renal dialysis (08/06/24) Objective Data Objective Data Vital Signs: Vital Signs Temp Pulse Resp BP Pulse Ox O2 Del Method O2 Flow Rate 98.1 F 99 18 127/63 H 98 Nasal Cannula 3 08/08/24 15:42 08/08/24 15:42 08/08/24 15:42 08/08/24 15:42 08/08/24 15:42 08/08/24 15:42 08/08/24 15:42 Oxygen Flow Rate (L/min) 3 Oxygen Delivery Method Nasal Cannula Weight: 146 lb 2.664 oz Body Mass Index (BMI) 25.0 Intake & Output: Intake and Output for Last 24 Hours 08/06/24 08/07/24 08/08/24 23:59 23:59 23:59 Intake Total 270 / 270 490 / 490 Output Total 1999 / 1999 200 / 200 2450 / 2450 Balance -1730 / -1730 290 / 290 -2450 / -2450 Lab / Micro Data 08/07/24 07:18 08/07/24 07:18 Micro: Microbiology 08/07/24 00:40 Sputum, Expectorated/Coughed Gram Stain - Final 08/06/24 07:36 Mucosa - Nose SARS-CoV-2, Influenza & RSV (PCR) - Final RSV Physical Exam Narrative Patient is still short of breath and has chest congestion. Feels slightly better than yesterday states that she has a history of COPD. RSV positive. Denies chest pain. Physical exam: General: Alert, Oriented x3, Cooperative HEENT: Atraumatic, PERRLA, EOMI, Normocephalic Oral: Oral mucosa dry. No Gingival or Mucosal Lesions/ Ulcerations Neck: Supple, No JVD, Negative Carotid Bruits Chest wall/Lungs: Air entry severely diminished bilaterally in all lung zepeda. Expiratory rhonchi and wheezing. On 3 L of oxygen Cardiovascular: Sinus tachycardia, Normal S1, Normal S2, No M/G/R Abdomen: Bowel Sounds Present, Soft, Non Tender, Non-Distended : No dysuria. No renal angle tenderness. No suprapubic tenderness. Extremities: No edema, Capillary Refill Less than 3 Seconds Skin: No rashes, No breakdown Musculoskeletal: No Tenderness to Palpation of Joints or Extremities. ROM restricted Neurological: Cranial nerves II-XII grossly intact, DTR 2+/4. No acute focal neurological deficit. Psych/Mental Status: Flat affect Assessment & Plan Assessment/Plan (1) Acute exacerbation of chronic obstructive pulmonary disease (COPD): PLAN: Plan This 69-year-old female was admitted for acute on chronic respiratory failure with history of COPD. Patient is only on 3 L of oxygen at rest increased to 4 L on exertion 1. Acute on chronic hypoxic respiratory failure probably from COPD exacerbation: Patient is being admitted in PCU.She was on nonrebreather in ED. ABG ordered. CT chest was done shows chronic emphysematous changes, improved right lower lobe airspace disease/pneumonia. Subcentimeter pulmonary nodules. Twelve-lead EKG shows NSR, LAD 98 bpm. QTc 441 ms. Patient is being managed on scheduled bronchodilator, IV Solu-Medrol, Mucinex, incentive spirometry and Pep. Pneumonia workup ordered. Patient had been multiple rounds of antibiotics recently on doxycycline 2/: CTPA does not major arteries pulmonary embolism though it was suboptimal opacification. Triple screen was positive of RSV. Sputum culture preliminary does not show organism. 2/5: Shortness of breath is better than yesterday. On 3 L of oxygen. Continue treatment. Anticipate discharge in 1 to 2 days. 2. ESRD on hemodialysis: [employer] consulted. Potassium 4.4. Electrolytes in normal range. BUN/creatinine, 60/4.17. Phosphorus 6. 3, hyperphosphatemia 2/4: Patient had hemodialysis yesterday 2: Patient getting hemodialysis today. 3. Anemia of chronic disease: H&H 9.8/31.8% on baseline 10 to 11 g. 4. Dyslipidemia 5. Anxiety and depression, essential tremor: On buspirone. Patient was given Ativan IV in the ED. 6. DVT prophylaxis high risk: Heparin 5000 units subcutaneous 3 times daily Living will/advanced directive/end of life care: Patient does not have living will or advanced directive. The patient does not have daycare power of disability attorney for health but her in ED is next of kin. After discussion of benefits/risks procedures involved with full code, DNR CC arrest and DNR CC, the patient and her opted for full code. Patient does want artificial life support including intubation, tube feed, ventilator and/chest compression, central venous catheter, vasopressor and DC shock if needed Laboratory Results 08/06/24 04:44: WBC 9.3, RBC 3.26 L, Hgb 9.8 L, Hct 31.8 L, MCV 97.5, MCH 30.1, MCHC 30.8 L, RDW Std Deviation 50.0 H, RDW Coeff of Laly 15.1 H, Plt Count 306, MPV 9.5, Immature Gran % (Auto) 2.400 H, Neut % (Auto) 85.3 H, Lymph % (Auto) 9.0 L, [place] % (Auto) 3.0, Eos % (Auto) 0.0, Baso % (Auto) 0.3, Absolute Neuts (auto) 7.9 H, Absolute Lymphs (auto) 0.84, Nucleated RBC % 0, Sodium 140, Potassium 4.4, Chloride 103, Carbon Dioxide 26.0, Anion Gap 11, BUN 64 H, Creatinine 4.17 H, Estim Creat Clear Calc 11.15, Est GFR (MDRD) Af Amer 14 L, Est GFR (MDRD) Non-Af 11 L, BUN/Creatinine Ratio 15.3, Glucose 126 H, Calcium 8.7, Phosphorus 6.3 H, Magnesium 2.1, TSH 1.310 08/06/24 07:36: D-Dimer Quant (PE/DVT) Pending Charges/Coding Visit Charges Inpatient E&M: 77042 Subs Hosp L2
[2024-08-08] MEDS: Fluticasone 0.05% 1 SPRAY NASAL.SRY 2 SPRAY NASAL (20:21)
[2024-08-08] MEDS: Montelukast 10 MG Tablet PO (20:23)
[2024-08-08] MEDS: Atorvastatin Calcium 40 MG Tablet PO (20:23)
[2024-08-09] VITALS (10 sets, daily range): BP systolic 115–144; BP diastolic 63–69; PULSE 84–104; RESP 16–22; TEMP 36.4–36.9; O2SAT 92–98; BMI 25.1
[2024-08-09] MEDS: guaiFENesin 10 ML UDC (200MG/10ML) PO ×6 (02:10→21:18)
[2024-08-09] MEDS: Benzonatate 100 MG Capsule 200 MG PO ×2 (05:02→19:02)
[2024-08-09] MEDS: 0.9% Saline Lock 10 ML Syringe IV ×2 (05:07→21:18)
[2024-08-09] MEDS: Heparin Injection (Vial) 5,000 UNIT/ML VIAL 5000 UNIT SC ×3 (05:07→21:17)
[2024-08-09] MEDS: Ipratropium/Albuterol Sulfate 3 ML AMPUL.NEB INHALATION ×3 (07:09→21:49)
[2024-08-09 07:42] LABS: Hematocrit 34.8 % (37-47); Hemoglobin 11.2 g/dL (12.0-15.0); Mean Corp Hgb Conc 32.2 g/dL (32-36); Mean Corpuscular Volume 96.4 fL (81-99); Mean Platelet Vol. 9.5 fl (6.2-12.0); NRBC Flagged by Analyzer 0.2 % (0-5); POSITIVE COUNT YES; POSITIVE MORPHOLOGY YES; Platelet Count 366 K/mm3 (150-450); RBC Distribution Width CV 15.4 % (11.6-14.6); RBC Distribution Width SD 50.4 fl (35.1-43.9); Red Blood Count 3.61 M/mm3 (4.2-5.4); White Blood Count 9.3 K/mm3 (4.4-11.0)
[2024-08-09 07:50] LABS: Differential Indicated MANUAL DIFF
[2024-08-09 08:06] LABS: Anion Gap 11 (5-15); BUN 75 mg/dL (7-18); BUN/Creat Ratio 18.7 RATIO (10-20); Calcium,Total 9.2 mg/dL (8.5-10.1); Chloride 101 mmol/L (98-107); Creatinine, Serum 4.02 mg/dL (0.55-1.02); EST Glomerular Filtration Rate 12 mL/min (>60); Est Glom Filt Rate - Afr Amer 14 mL/min (>60); Estimated Creatinine Clearance 12.56 ml/min; Glucose 103 mg/dL (74-106); Sodium Level 135 mmol/L (136-145)
[2024-08-09] MEDS: Sucralfate 1 GM Tablet PO (08:13)
[2024-08-09 09:30] LABS: Lymphocyte 6 % (19-41); Metamyelocyte 3 % (0-1); Monocyte 4 % (0-10); Myelocyte 3 % (0-0); Neutrophil-Band 3 % (0-5); Neutrophil-Segmented 81 % (47-70); Platelet Estimate ADEQUATE (ADEQ); Red Cell Morphology NORM C+C NORMAL (NORM C&C); Total Cells Counted 100 (MANUAL DIFF)
[2024-08-09 09:34] LABS: Absolute Lymphocyte Count 0.56 X10^3/uL (0.83-4.51); Absolute Neutrophil Count 7.8 X10^3/uL (2.0-7.7)
[2024-08-09] MEDS: Doxycycline 100 MG CAPSULE PO ×2 (09:47→21:17)
[2024-08-09] MEDS: busPIRone 5 MG Tablet 10 MG PO ×2 (09:47→21:17)
[2024-08-09] MEDS: Isosorbide Mononitrate 60 MG Tablet PO (09:47)
[2024-08-09] MEDS: Pantoprazole Sodium 40 MG Tablet PO ×2 (09:47→21:17)
--- NOTE | 2024-08-09 12:41 | PN.HOSP_ITS ---
Reason for Visit Reason for Visit: Diagnoses Chronic obstructive pulmonary disease with (acute) exacerbation (08/06/24) End stage renal disease (08/06/24) Dependence on renal dialysis (08/06/24) Subjective Subjective Saw patient at bedside this morning. Patient was sitting in bedside chair. She had significant tremor noted and was somewhat anxious appearing but otherwise answering questions appropriately. She reported feeling improved from yesterday, was breathing more comfortably today and cough has improved. Denied any fevers or chills. No other new concerns today. Objective Data Objective Data Vital Signs: Vital Signs Temp Pulse Resp BP Pulse Ox O2 Del Method O2 Flow Rate 97.8 F 99 20 H 115/64 94 Nasal Cannula 3 08/09/24 11:53 08/09/24 11:53 08/09/24 11:53 08/09/24 11:53 08/09/24 11:53 08/09/24 11:53 08/09/24 11:53 Oxygen Flow Rate (L/min) 3 Oxygen Delivery Method Nasal Cannula Weight: 66.5 kg Body Mass Index (BMI) 25.1 Intake & Output: Intake and Output for Last 24 Hours 08/07/24 08/08/24 08/09/24 23:59 23:59 23:59 Intake Total 490 / 490 Output Total 200 / 200 2450 / 2450 Balance 290 / 290 -2450 / -2450 Lab / Micro Data 08/09/24 07:10 08/09/24 07:10 Labs: Laboratory Results - last 24 hr 08/09/24 07:10: WBC 9.3, RBC 3.61 L, Hgb 11.2 L, Hct 34.8 L, MCV 96.4, MCH 31.0, MCHC 32.2, RDW Std Deviation 50.4 H, RDW Coeff of Laly 15.4 H, Plt Count 366, MPV 9.5, Immature Gran % (Auto) COMMERCIAL FINANCE MANAGER, Neut % (Auto) COMMERCIAL FINANCE MANAGER, Lymph % (Auto) COMMERCIAL FINANCE MANAGER, [place] % (Auto) COMMERCIAL FINANCE MANAGER, Eos % (Auto) COMMERCIAL FINANCE MANAGER, Baso % (Auto) COMMERCIAL FINANCE MANAGER, Absolute Neuts (auto) 7.8 H, A bsolute Lymphs (auto) 0.56 L, Total Counted 100, Neutrophils % (Manual) 81 H, Band Neutrophils % 3, Lymphocytes % (Manual) 6 L, Monocytes % (Manual) 4, M etamyelocytes % 3 H, Myelocytes % 3 H, Nucleated RBC % 0.2, Diff Path Review May foll, Platelet Estimate ADEQUATE, RBC Morphology NORM C+C, Sodium 135 L, Potassium 5.0, Chloride 101, Carbon Dioxide 23.0, Anion Gap 11, BUN 75 H, C reatinine 4.02 H, Estim Creat Clear Calc 12.56, Est GFR (MDRD) Af Amer 14 L, Est GFR (MDRD) Non-Af 12 L, BUN/Creatinine Ratio 18.7, Glucose 103, Calcium 9.2 Micro: Microbiology 08/07/24 00:40 Sputum, Expectorated/Coughed Gram Stain - Final 08/07/24 00:40 Sputum, Expectorated/Coughed Respiratory Culture - Final Presumptive C albicans 08/06/24 07:36 Mucosa - Nose SARS-CoV-2, Influenza & RSV (PCR) - Final RSV Physical Exam Const alert, oriented x3, no apparent distress and average body habitus Constitutional Narrative: Upper middle aged female, appears older than stated age, somewhat frail appearing, mild anxious appearing w/ tremor noted, otherwise sitting up in bedside chair and conversing normally. General Appearance: cooperative and comfortable HEENT normocephalic, head/scalp atraumatic, hearing grossly normal bilaterally, nasal mucous membranes and turbinates normal and moist oral mucous membranes Eyes PERRL, EOMs intact bilaterally and conjunctivae normal Neck full ROM Chest inspection of chest normal Resp normal respiratory effort and no use of accessory muscles Resp Narrative: Breathing comfortably on 3L NC at rest. Mildly decreased breath sounds throughout bilaterally but no wheezing or crackles noted. Cardio regular rate, regular rhythm, no murmurs and peripheral pulses 2+ throughout GI normal to inspection, nondistended, normoactive bowel sounds, soft to palpation, non-tender and non-distended Back/Spine normal ROM Extremity normal to inspection, full ROM and no pedal edema Skin no rashes or lesions noted Neuro no focal motor deficits Speech: speech normal Psych mental status grossly normal Mood & Affect: anxious Assessment & Plan Assessment/Plan (1) Acute exacerbation of chronic obstructive pulmonary disease (COPD): (2) End stage renal disease on dialysis: (3) Pulmonary nodule: PLAN: Plan Patient is a 69-year-old female who presented to [facility] ED on 08/06/2024 with worsening shortness of breath and cough. 1. Acute on chronic respiratory failure suspected secondary to COPD exacerbation - On home 3L at rest and 4L w/ exertion. Requiring up to 10L on admit to maintain appropriate O2 saturations. CTA chest showed no PE, right pleural effusion w/ compressive atelectasis, right lower lobe nodule. RSV positive but notably was positive during recent previous admit. Completely course of 7 days of doxycycline. Transitioned to p.o. prednisone in preparation for discharge. If stable on home O2, likely okay for discharge home tomorrow. 2. ESRD on HD - Nephrology following. On HD MWF. Planning for next HD session tomorrow. 3. Right lower lobe nodule - CT chest on admit showed a 1.6 cm RLL nodule concerning for a developing neoplastic process. Will discuss with Pulmonology tomorrow on need for inpatient vs outpatient workup. Chronic medical conditions: - Anemia of chronic disease: Hemoglobin stable at baseline around 10 since admission. - Essential tremor, anxiety/depression: Continue home medications. - Hyperlipidemia: Continue home statin. - GERD: Continue home PPI. DVT prophylaxis: Heparin subQ Code status: Full code, verified Expected disposition: Home w/ HHC, 1-2 days Total clinical time spent by myself addressing the patient's medical issues, reviewing all the data, and collaborating with patient's care team: 35 minutes. Charges/Coding Visit Charges Inpatient E&M: 45709 Subs Hosp L2
--- NOTE | 2024-08-09 19:08 | PCM.PN.REN ---
Subjective Subjective no new events Objective Data Objective Data Vital Signs: Vital Signs Temp Pulse Resp BP Pulse Ox O2 Del Method O2 Flow Rate 98 F 104 H 18 144/63 H 94 Nasal Cannula 3 08/09/24 15:37 08/09/24 15:37 08/09/24 15:37 08/09/24 15:37 08/09/24 15:37 08/09/24 15:37 08/09/24 16:30 Oxygen Flow Rate (L/min) 3 Oxygen Delivery Method Nasal Cannula Weight: 66.5 kg Body Mass Index (BMI) 25.1 Intake & Output: Intake and Output for Last 24 Hours 08/07/24 08/08/24 08/09/24 23:59 23:59 23:59 Intake Total 490 / 490 Output Total 200 / 200 2450 / 2450 Balance 290 / 290 -2450 / -2450 Lab / Micro Data 08/09/24 07:10 08/09/24 07:10 Labs: Laboratory Results - last 24 hr 08/09/24 07:10: WBC 9.3, RBC 3.61 L, Hgb 11.2 L, Hct 34.8 L, MCV 96.4, MCH 31.0, MCHC 32.2, RDW Std Deviation 50.4 H, RDW Coeff of Laly 15.4 H, Plt Count 366, MPV 9.5, Immature Gran % (Auto) CURING PRESS MAINTAINER, Neut % (Auto) CURING PRESS MAINTAINER, Lymph % (Auto) CURING PRESS MAINTAINER, [place] % (Auto) CURING PRESS MAINTAINER, Eos % (Auto) CURING PRESS MAINTAINER, Baso % (Auto) CURING PRESS MAINTAINER, Absolute Neuts (auto) 7.8 H, Absolute Lymphs (auto) 0.56 L, Total Counted 100, Neutrophils % (Manual) 81 H, Band Neutrophils % 3, Lymphocytes % (Manual) 6 L, Monocytes % (Manual) 4, Metamyelocytes % 3 H, Myelocytes % 3 H, Nucleated RBC % 0.2, Diff Path Review November, Platelet Estimate ADEQUATE, RBC Morphology NORM C+C, Sodium 135 L, Potassium 5.0, Chloride 101, Carbon Dioxide 23.0, Anion Gap 11, BUN 75 H, Creatinine 4.02 H, Estim Creat Clear Calc 12.56, Est GFR (MDRD) Af Amer 14 L, Est GFR (MDRD) Non-Af 12 L, BUN/Creatinine Ratio 18.7, Glucose 103, Calcium 9.2 Micro: Microbiology 08/07/24 00:40 Sputum, Expectorated/Coughed Gram Stain - Final 08/07/24 00:40 Sputum, Expectorated/Coughed Respiratory Culture - Final Presumptive C albicans 08/06/24 07:36 Mucosa - Nose SARS-CoV-2, Influenza & RSV (PCR) - Final RSV Physical Exam Narrative Alert and oriented x 3, no apparent distress S1, S2, RRR Diminished breath sounds, coarse cough. On O2 nasal cannula Abdomen soft, nontender No edema Assessment & Plan Assessment/Plan (1) End stage renal disease on dialysis: (2) Acute exacerbation of chronic obstructive pulmonary disease (COPD): PLAN: Plan - ESRD on hemodialysis Tuesday -Acute exacerbation of COPD; overall patient reports breathing has improved. She is on O2 nasal cannula at baseline. Patient is receiving IV steroids, oral antibiotics, breathing treatments. HD tomorrow
[2024-08-09] MEDS: Fluticasone 0.05% 1 SPRAY NASAL.SRY 2 SPRAY NASAL (21:17)
[2024-08-09] MEDS: Montelukast 10 MG Tablet PO (21:17)
[2024-08-09] MEDS: Atorvastatin Calcium 40 MG Tablet PO (21:17)
[2024-08-09] MEDS: Acetaminophen 325 MG Tablet 650 MG PO (23:22)
[2024-08-10] VITALS (15 sets, daily range): BP systolic 112–232; BP diastolic 54–87; PULSE 70–105; RESP 14–18; TEMP 35.9–36.9; O2SAT 95–100; BMI 25.0; BMI 24.4
[2024-08-10] MEDS: guaiFENesin 10 ML UDC (200MG/10ML) PO ×3 (03:05→12:11)
[2024-08-10] MEDS: Sucralfate 1 GM Tablet PO (06:57)
[2024-08-10] MEDS: Heparin Injection (Vial) 5,000 UNIT/ML VIAL 5000 UNIT SC (06:57)
--- NOTE | 2024-08-10 11:11 | PCM.PN.REN ---
Subjective Subjective Seen and examined on dialysis. Tolerating treatment well. Reports feeling better overall. No overnight events. Objective Data Objective Data Vital Signs: Vital Signs Temp Pulse Resp BP Pulse Ox O2 Del Method O2 Flow Rate 96.7 F L 98 14 112/87 H 96 Nasal Cannula 3 08/10/24 08:00 08/10/24 11:00 08/10/24 10:30 08/10/24 11:00 08/10/24 10:30 08/10/24 10:30 08/10/24 10:30 Oxygen Flow Rate (L/min) 3 Oxygen Delivery Method Nasal Cannula Weight: 66.2 kg Body Mass Index (BMI) 25.0 Intake & Output: Intake and Output for Last 24 Hours 08/08/24 08/09/24 08/10/24 23:59 23:59 23:59 Intake Total 200 / 200 100 / 100 Output Total 2450 / 2450 Balance -2450 / -2450 200 / 200 100 / 100 Lab / Micro Data 08/09/24 07:10 08/09/24 07:10 Micro: Microbiology 08/07/24 00:40 Sputum, Expectorated/Coughed Gram Stain - Final 08/07/24 00:40 Sputum, Expectorated/Coughed Respiratory Culture - Final Presumptive C albicans 08/06/24 07:36 Mucosa - Nose SARS-CoV-2, Influenza & RSV (PCR) - Final RSV Physical Exam Narrative Alert and oriented x 3, no apparent distress S1, S2, RRR Diminished breath sounds, coarse cough. On O2 nasal cannula Abdomen soft, nontender No edema Tunneled HD catheter accessed for dialysis Left upper arm AV fistula positive thrill and bruit Assessment & Plan Assessment/Plan (1) End stage renal disease on dialysis: (2) Acute exacerbation of chronic obstructive pulmonary disease (COPD): PLAN: Plan - ESRD on hemodialysis Tuesday. Dialysis today and attempting around 2 L fluid removal as patient/blood pressure tolerates. Hemoglobin 11.2, does not need ERIC with dialysis today. -Acute exacerbation of COPD; overall patient reports breathing has improved. She is on O2 nasal cannula at baseline. Patient is receiving IV steroids, oral antibiotics, breathing treatments. - possible discharge to home today
--- NOTE | 2024-08-10 11:43 | PCM.DC ---
Discharge Instructions Diet Discharge Diet: No restrictions DC O2, CPAP, BIPAP needs RN Home O2 Qualification: Home O2 Qualification: Is the patient on home oxygen Yes 08/09/24 17:02 Home O2 Qualification: AT REST 1-Pulse Ox at rest 97 08/09/24 17:02 1- Oxygen flow rate at rest 3 08/09/24 17:02 Home O2 Qualification: WITH AMBULATION 1- Pulse Ox with ambulation 94 08/09/24 17:02 1- Oxygen Flow Rate with 4 08/09/24 17:02 ambulation Home O2 Discharge instructions: No Dressing / Incision Discharge Activity: No Restrictions Follow Up Care Test Results: Test results from this visit will be discussed in further detail at your follow-up appointment, if applicable. Discharge Plan Admission Admit Date/Time: 08/06/24 07:25 Primary Reason for Your Visit: Shortness of breath and cough Attending Provider: Robel Funk Primary Care Provider: Julio Draper Consulting Providers: Adelia Lawson; Yemi Celaya Instructions Additional Instructions / Restrictions: Complete prednisone taper as noted below. Take Tessalon Perles as needed for cough. Continue other home medications as normal. Discharge Orders/Prescriptions Prescriptions: New benzonatate 100 mg Capsule 200 mg PO TID PRN PRN (Reason: COUGH/CONGESTION) 7 Days Qty: 21 0RF prednisone 10 mg tablet See Taper PO DAILY 28 Days Qty: 70 0RF Taper: Prednisone Taper 40 mg WITH BREAKFAST for 7 Days and 0 Hour 30 mg WITH BREAKFAST for 7 Days and 0 Hour 20 mg WITH BREAKFAST for 7 Days and 0 Hour 10 mg WITH BREAKFAST for 7 Days and 0 Hour Continued nitroglycerin 0.4 mg tablet, sublingual 0.4 mg sublingual Q5-15M PRN (Reason: chest pain) Rx Instructions: do not exceed 3 doses per episode isosorbide mononitrate 60 mg tablet extended release 24 hr 60 mg PO DAILY atorvastatin 40 mg tablet 40 mg PO QHS buspirone 10 mg tablet 10 mg PO BID albuterol sulfate [Ventolin HFA] 1 INHALER inhaler 2 puff inhalation Q4H PRN PRN (Reason: Shortness Of Breath) Patient Comments: shortness of breath montelukast 10 MG tablet 10 mg PO QHS fluticasone propionate 50 mcg/actuation spray,suspension 2 spray INTRANASAL QHS Patient Comments: Use 1 [place] in each nostril once daily. Galina-Jose Elias 0.8 mg tablet 1 tab PO DAILY sucralfate 1 gram tablet 1 g PO DAILY ipratropium-albuterol 0.5 mg-3 mg(2.5 mg base)/3 mL solution for nebulization 3 ml continuous nebulization Q6H PRN PRN (Reason: wheezing) pantoprazole 40 mg tablet,delayed release (DR/EC) 40 mg PO BID Trelegy Ellipta 100-62.5-25 mcg blister with device 1 ea INHALATION DAILY cholecalciferol (vitamin D3) [Vitamin D3] 25 mcg (1,000 unit) capsule 25 mcg PO MOWEFR Rx Instructions: PT GIVEN VITAMIN AT DIALYSIS acetaminophen [8 Hour Pain Reliever] 650 mg tablet extended release 650 mg PO Q6H PRN (Reason: pain) guaifenesin [Mucus Relief ER] 1,200 mg Tablet Extended Release 12hr 1,200 mg PO BID Qty: 30 0RF Patient Comments: pt unsure if she has been taking this Discontinued prednisone 20 mg tablet 60 mg PO DAILY Qty: 12 0RF doxycycline monohydrate 100 mg capsule 100 mg PO BID Qty: 14 0RF Referrals / Follow Up: Julio Draper MD [Primary Care Provider] - Disposition Disposition (needs filled in before D/C Order can be placed): Home Health Service
--- NOTE | 2024-08-10 11:48 | PCM.DC.SUM ---
Providers Date of Admission: 08/06/24 Date of Discharge: 08/10/24 Primary Care Physician: Dr. Julio Draper MD Consultations 08/06/24 08:47 Consult: Nephrology Routine Consulting Provider: Adelia Lawson Reason for Consult: ESRD ON HD, SOB, COPD EMERGENT Consult: No MD Notified: Yes Date Notified: 08/06/24 Time Notified: 08:37 Method of Notification: Text Reason For Visit: acute on chronic resp failure Diagnosis Discharge Diagnosis (1) End stage renal disease on dialysis: Status: Acute Code(s): N18.6 - End stage renal disease; Z99.2 - Dependence on renal dialysis (2) Acute exacerbation of chronic obstructive pulmonary disease (COPD): Status: Chronic Code(s): J44.1 - Chronic obstructive pulmonary disease with (acute) exacerbation Medications at Discharge Home Medications albuterol sulfate 90 mcg/actuation aerosol inhaler (Ventolin HFA) 2 puff inhalation Q4H PRN PRN Shortness Of Breath 08/28/15 montelukast 10 mg tablet 10 mg PO QHS ALLERGIES 02/25/18 fluticasone propionate 50 mcg/actuation nasal spray,suspension 2 spray intranasal QHS ALLERGIES 05/01/21 atorvastatin 40 mg tablet 40 mg PO QHS 09/23/23 isosorbide mononitrate 60 mg tablet,extended release 24 hr 60 mg PO DAILY 09/23/23 nitroglycerin 0.4 mg sublingual tablet 0.4 mg sublingual Q5-15M PRN chest pain 09/23/23 buspirone 10 mg tablet 10 mg PO BID 09/27/23 vitamin B complex-vitamin C-folic acid 0.8 mg tablet (Galina-Jose Elias) 1 tab PO DAILY 05/22/24 sucralfate 1 gram tablet 1 g PO DAILY GI 07/08/24 acetaminophen 650 mg tablet,extended release (8 Hour Pain Reliever) 650 mg PO Q6H PRN pain 07/23/24 cholecalciferol (vitamin D3) 25 mcg (1,000 unit) capsule (Vitamin D3) 25 mcg PO MOWEFR 07/23/24 guaifenesin 1,200 mg tablet, extended release 12 hr (Mucus Relief ER) 1,200 mg PO BID #30 tabs 07/27/24 fluticasone fur. 100 mcg-umeclid 62.5 mcg-vilant 25 mcg inhalat.powder (Trelegy Ellipta) 1 ea inhalation DAILY breathing 08/06/24 ipratropium 0.5 mg-albuterol 3 mg (2.5 mg base)/3 mL nebulization soln 3 ml continuous nebulization Q6H PRN PRN wheezing 08/06/24 pantoprazole 40 mg tablet,delayed release 40 mg PO BID 08/06/24 benzonatate 100 mg capsule 200 mg (2 x 100 mg) PO TID PRN PRN COUGH/CONGESTION 7 days #21 caps 08/10/24 prednisone 10 mg tablet See Taper PO DAILY 28 days #70 tabs 08/10/24 Hospital Course Operations None Procedures EKG and - (CT chest, CTA chest) Summary of Care Provided Minutes Spent on Discharge: 35 Hospital Course: Patient is a 69-year-old female who presented to [facility] ED on 08/06/2024 with worsening shortness of breath and cough. Hospital course as noted below. Patient discharged home with home health care in stable condition on 08/10. 1. Acute on chronic respiratory failure suspected secondary to COPD exacerbation - On home 3L at rest and 4L w/ exertion. Requiring up to 10L on admit to maintain appropriate O2 saturations. CTA chest showed no PE, right pleural effusion w/ compressive atelectasis, right lower lobe nodule. RSV positive but notably was positive during recent previous admit. Completely course of 7 days of doxycycline. Stable on home O2 requirements on discharge. Discharged on prednisone taper over 4 weeks. Continue home inhalers on discharge. 2. ESRD on HD - Nephrology followed. On HD MWF. Last HD session on day of discharge. 3. Right lower lobe nodule - CT chest on admit showed a 1.6 cm RLL nodule; per patient, has had close monitoring of this nodule with imaging every 3 months. Okay to continue close outpatient monitoring. Chronic medical conditions: - Anemia of chronic disease: Hemoglobin stable at baseline around 10 since admission. - Essential tremor, anxiety/depression: Continue home medications. - Hyperlipidemia: Continue home statin. - GERD: Continue home PPI. Total clinical time spent by myself addressing the patient's medical issues, reviewing all the data, and collaborating with patient's care team: 35 minutes. Physical Exam Const alert, oriented x3, no apparent distress and average body habitus Constitutional Narrative: Upper middle aged female, appears older than stated age, somewhat frail appearing, mild anxious appearing w/ tremor noted, otherwise sitting up in bedside chair and conversing normally. Stable. General Appearance: cooperative and comfortable HEENT normocephalic, head/scalp atraumatic, hearing grossly normal bilaterally, nasal mucous membranes and turbinates normal and moist oral mucous membranes Eyes PERRL, EOMs intact bilaterally and conjunctivae normal Neck full ROM Chest inspection of chest normal Resp normal respiratory effort and no use of accessory muscles Resp Narrative: Breathing comfortably on 3L NC at rest. Mildly decreased breath sounds throughout bilaterally but no wheezing or crackles noted. Stable. Cardio regular rate, regular rhythm, no murmurs and peripheral pulses 2+ throughout GI normal to inspection, nondistended, normoactive bowel sounds, soft to palpation, non-tender and non-distended Back/Spine normal ROM Extremity normal to inspection, full ROM and no pedal edema Skin no rashes or lesions noted Neuro no focal motor deficits Speech: speech normal Psych mental status grossly normal Mood & Affect: anxious Weight / BMI Weight Weight: 64.6 kg Body Mass Index (BMI) 24.4 ABG / Lab / Microbiology Data 08/09/24 07:10 08/09/24 07:10 Laboratory: Laboratory Results - last 24 hr 08/09/24 07:10: Diff Path Review Reviewed Microbiology: Microbiology 08/07/24 00:40 Sputum, Expectorated/Coughed Gram Stain - Final 08/07/24 00:40 Sputum, Expectorated/Coughed Respiratory Culture - Final Presumptive C albicans 08/06/24 07:36 Mucosa - Nose SARS-CoV-2, Influenza & RSV (PCR) - Final RSV D/C Instructions Discharge Diet: No restrictions DC O2, CPAP, BIPAP Needs RN Home O2 Qualification: Home O2 Qualification: Is the patient on home oxygen Yes 08/09/24 17:02 Home O2 Qualification: AT REST 1-Pulse Ox at rest 97 08/09/24 17:02 1- Oxygen flow rate at rest 3 08/09/24 17:02 Home O2 Qualification: WITH AMBULATION 1- Pulse Ox with ambulation 94 08/09/24 17:02 1- Oxygen Flow Rate with 4 08/09/24 17:02 ambulation Home O2 Discharge instructions: No Meaningful Use Info Meaningful Use Meaningful Use Diagnoses (Choose all that apply): None applicable Ischemic Stroke Statin Dosing Therapy Reference: STATIN DOSE THERAPY REFERENCE: * Patients > 75 years receive moderate or high dose statin therapy. * Patients 75 years or YOUNGER should receive HIGH intensity statin dose unless contraindicated. You will be required to document reason for non-treatment if statin daily dose does not meet guidelines. HIGH DOSE STATIN THERAPY DAILY Atorvastatin > than or = to 40 mg Rosuvastatin > than or = to 20 mg Amlodipine + Atorvastatin > than or = to 2.5/40 mg Ezetimibe + Simvastatin 10/80 mg Simvastatin 80mg Discharge Plan Admission Admit Date/Time: 08/06/24 07:25 Primary Reason for Your Visit: Shortness of breath and cough Attending Provider: Robel Funk Primary Care Provider: Julio Draper Consulting Providers: Adelia Lawson; Yemi Celaya Instructions Additional Instructions / Restrictions: Complete prednisone taper as noted below. Take Tessalon Perles as needed for cough. Continue other home medications as normal. Discharge Orders/Prescriptions Prescriptions: New benzonatate 100 mg Capsule 200 mg PO TID PRN PRN (Reason: COUGH/CONGESTION) 7 Days Qty: 21 0RF prednisone 10 mg tablet See Taper PO DAILY 28 Days Qty: 70 0RF Taper: Prednisone Taper 40 mg WITH BREAKFAST for 7 Days and 0 Hour 30 mg WITH BREAKFAST for 7 Days and 0 Hour 20 mg WITH BREAKFAST for 7 Days and 0 Hour 10 mg WITH BREAKFAST for 7 Days and 0 Hour Continued nitroglycerin 0.4 mg tablet, sublingual 0.4 mg sublingual Q5-15M PRN (Reason: chest pain) Rx Instructions: do not exceed 3 doses per episode isosorbide mononitrate 60 mg tablet extended release 24 hr 60 mg PO DAILY atorvastatin 40 mg tablet 40 mg PO QHS buspirone 10 mg tablet 10 mg PO BID albuterol sulfate [Ventolin HFA] 1 INHALER inhaler 2 puff inhalation Q4H PRN PRN (Reason: Shortness Of Breath) Patient Comments: shortness of breath montelukast 10 MG tablet 10 mg PO QHS fluticasone propionate 50 mcg/actuation spray,suspension 2 spray INTRANASAL QHS Patient Comments: Use 1 [place] in each nostril once daily. Galina-Jose Elias 0.8 mg tablet 1 tab PO DAILY sucralfate 1 gram tablet 1 g PO DAILY ipratropium-albuterol 0.5 mg-3 mg(2.5 mg base)/3 mL solution for nebulization 3 ml continuous nebulization Q6H PRN PRN (Reason: wheezing) pantoprazole 40 mg tablet,delayed release (DR/EC) 40 mg PO BID Trelegy Ellipta 100-62.5-25 mcg blister with device 1 ea INHALATION DAILY cholecalciferol (vitamin D3) [Vitamin D3] 25 mcg (1,000 unit) capsule 25 mcg PO MOWEFR Rx Instructions: PT GIVEN VITAMIN AT DIALYSIS acetaminophen [8 Hour Pain Reliever] 650 mg tablet extended release 650 mg PO Q6H PRN (Reason: pain) guaifenesin [Mucus Relief ER] 1,200 mg Tablet Extended Release 12hr 1,200 mg PO BID Qty: 30 0RF Patient Comments: pt unsure if she has been taking this Discontinued prednisone 20 mg tablet 60 mg PO DAILY Qty: 12 0RF doxycycline monohydrate 100 mg capsule 100 mg PO BID Qty: 14 0RF Referrals / Follow Up: Julio Draper MD [Primary Care Provider] - 08/14/24 11:20 am Disposition Disposition (needs filled in before D/C Order can be placed): Home Health Service Charges/Coding Visit Charges Inpatient E&M: 26354 Disch Hosp >30min
[2024-08-10] MEDS: Heparin 10,000 UNITS/10 ML Vial 3000 UNITS IV (11:57)
[2024-08-10] MEDS: 0.9% Normal Saline 1,000 ML IV.SOLN. 1000 ML OPERA.SITE (11:58)
[2024-08-10] MEDS: PureFlow B 2K Dialysis Soln 1 BAG 6 BAG PF (11:59)
[2024-08-10] MEDS: 0.9% Saline Lock 10 ML Syringe IV (11:59)
[2024-08-10] MEDS: predniSONE 20 MG Tablet 40 MG PO (12:10)
[2024-08-10] MEDS: Cholecalciferol (VIT D3) 25 MCG TABLET (1,000 UNITS) PO (12:11)
[2024-08-10] MEDS: Doxycycline 100 MG CAPSULE PO (12:11)
[2024-08-10] MEDS: Pantoprazole Sodium 40 MG Tablet PO (12:11)
[2024-08-10] MEDS: Isosorbide Mononitrate 60 MG Tablet PO (12:11)
[2024-08-10] MEDS: busPIRone 5 MG Tablet 10 MG PO (12:11)
[2024-08-10] MEDS: Benzonatate 100 MG Capsule 200 MG PO (12:12)
--- NOTE | 2024-08-10 12:28 | CASEMGMT ---
Patient has order for discharge. Patient is maintaining on baseline home oxygen orders. JAMI GUERRERO updated [facility] of discharge, start of care planned for Tuesday. JAMI GUERRERO in to update patient of resumption of [facility] with SW added to services. Patient states she has been having anxiety that could be related to her SOB, JAMI GUERRERO encouraged patient to discuss with SW with C follow-up. Patient denied further needs or help at discharge. Patient had no further questions or concerns. JAMI GUERRERO updated discharge plan.
[2024-08-10 13:44] LABS: Pathologist Review Reviewed
== END 2024-08-10 14:10 | disposition home health service (06) | DRG 190 ==
LOC: ED 07:26 → PCU 07:43
PROVIDERS: Admitting Provider Internal Medicine; Emergency Provider Emergency Medicine; PCP Internal Medicine; Visit Provider Hospitalist
DX: J44.1 Chronic obstructive pulmonary disease with (acute) exacerbation (principal); J96.21 Acute and chronic respiratory failure with hypoxia; N18.6 End stage renal disease; I12.0 Hypertensive chronic kidney disease with stage 5 chronic kidney disease or end stage renal disease; D63.1 Anemia in chronic kidney disease; B97.4 Respiratory syncytial virus as the cause of diseases classified elsewhere; I48.91 Unspecified atrial fibrillation; G25.0 Essential tremor; E78.5 Hyperlipidemia, unspecified; Z99.2 Dependence on renal dialysis; I25.2 Old myocardial infarction; K21.9 Gastro-esophageal reflux disease without esophagitis; F41.8 Other specified anxiety disorders; Z87.891 Personal history of nicotine dependence; Z79.51 Long term (current) use of inhaled steroids; Z79.899 Other long term (current) drug therapy; Z96.619 Presence of unspecified artificial shoulder joint; Z90.49 Acquired absence of other specified parts of digestive tract
CPT/HCPCS: 36415; 36600; 71250; 71275; 80048; 82803; 83735; 83880; 84100; 84443; 85025; 85379; 87070; 87205; 87631; 90937; 93005; 94640; 94668; 97110; 97162; 97165; 97530; 97535; 97802; 99285; Q9967; A4216; G0257

== ENCOUNTER 2024-09-06 07:01 | Day surgery (SDC) | payer MEDICARE, OTHER, SELFPAY ==
[2024-07-30 08:03] VITALS: BMI 25.3
--- NOTE | 2024-09-06 08:03 | PCM.HP.STD ---
HPI - General HPI Narrative SNEHA CARDENAS, is a 69 F who presents with right IJ tunneled dialysis catheter that is no longer in use. She had a successful left upper arm fistula created that is functioning without issue. [facility] Medical History End stage renal disease on dialysis Pulmonary nodule Anemia of chronic disease Sepsis End stage chronic kidney disease Pneumonia End-stage renal disease (ESRD) Post-menopausal History of steroid therapy History of renal dialysis Blackout Gastric reflux Emphysema, unspecified Shortness of breath on exertion Normal Holter exam History of echocardiogram Hypertension Cardiology follow-up encounter History of heart attack History of atrial fibrillation Hemodialysis catheter malfunction Former cigarette smoker GERD (gastroesophageal reflux disease) Hyperlipidemia History of GI bleed Pleural effusion ESRD (end stage renal disease) on dialysis Essential hypertension NSTEMI (non-ST elevated myocardial infarction) EARNEST (acute kidney injury) Hx of ulcer disease Former smoker Atrial fibrillation Elevated blood pressure reading without diagnosis of hypertension Chronic hypoxemic respiratory failure Acute bronchospasm Acute exacerbation of chronic obstructive pulmonary disease Empyema of pleural space Syncope Bleeding ulcer Anemia requiring transfusions Lung nodules Pleurisy On home oxygen therapy Migraines Hyperglycemia Elevated serum creatinine Sinus tachycardia Fever and chills Dyspnea on exertion Acute bronchospasm COPD exacerbation Leukocytosis Community acquired pneumonia Anxiety Benign essential tremor Former tobacco use Pneumonia due to COVID-19 virus Asthma COPD (chronic obstructive pulmonary disease) Tobacco use Tremor Benign essential hypertension Home Medications ?Medication ?Instructions ?Recorded ?Last Taken ?Type albuterol sulfate 90 mcg/actuation 2 puff inhalation Q4H PRN PRN 08/28/15 07/23/24 History aerosol inhaler (Ventolin HFA) Shortness Of Breath montelukast 10 mg tablet 10 mg PO QHS ALLERGIES 02/25/18 07/22/24 History fluticasone propionate 50 2 spray intranasal QHS ALLERGIES 05/01/21 07/22/24 History mcg/actuation nasal spray,suspension atorvastatin 40 mg tablet 40 mg PO QHS 09/23/23 07/22/24 History isosorbide mononitrate 60 mg 60 mg PO DAILY 09/23/23 07/22/24 History tablet,extended release 24 hr nitroglycerin 0.4 mg sublingual 0.4 mg sublingual Q5-15M PRN chest 09/23/23 Unknown History tablet pain buspirone 10 mg tablet 10 mg PO BID 09/27/23 07/22/24 History vitamin B complex-vitamin C-folic 1 tab PO DAILY 05/22/24 07/22/24 History acid 0.8 mg tablet (Galina-Jose Elias) sucralfate 1 gram tablet 1 g PO DAILY GI 07/08/24 07/22/24 History acetaminophen 650 mg 650 mg PO Q6H PRN pain 07/23/24 Unknown History tablet,extended release (8 Hour Pain Reliever) cholecalciferol (vitamin D3) 25 25 mcg PO MOWEFR 07/23/24 07/20/24 History mcg (1,000 unit) capsule (Vitamin D3) guaifenesin 1,200 mg tablet, 1,200 mg PO BID #30 tabs 07/27/24 Unknown Rx extended release 12 hr (Mucus Relief ER) fluticasone fur. 100 mcg-umeclid 1 ea inhalation DAILY breathing 08/06/24 09/06/24 History 62.5 mcg-vilant 25 mcg inhalat.powder (Trelegy Ellipta) ipratropium 0.5 mg-albuterol 3 mg 3 ml continuous nebulization Q6H 08/06/24 Unknown History (2.5 mg base)/3 mL nebulization PRN PRN wheezing soln pantoprazole 40 mg tablet,delayed 40 mg PO BID 08/06/24 Unknown History release benzonatate 100 mg capsule 200 mg (2 x 100 mg) PO TID PRN PRN 08/10/24 Unknown Rx COUGH/CONGESTION 7 days #21 caps prednisone 10 mg tablet See Taper PO DAILY 28 days #70 tabs 08/10/24 Unknown Rx Allergy/AdvReac Type Severity Reaction Status Date / Time cephalexin monohydrate (From Allergy Chest Verified 08/06/24 04:41 Keflex) tightness vancomycin AdvReac Mild Itching Verified 08/06/24 04:41 Family History Other Adopted Surgical History Hx of surgical procedure Hx of colonoscopy AVF (arteriovenous fistula) (03/13/24) Hx of colonoscopy History of cardiac catheterization Hx of total shoulder replacement Hx of chest tube placement Hx of esophagogastroduodenoscopy H/O bilateral salpingectomy History of herniorrhaphy Hx of tonsillectomy Hx of cholecystectomy Social History adopted: Yes household members: family housing: house Smoking Status: Former smoker how long ago did patient quit smokin years ago alcohol intake: never substance use type: does not use caffeine: Yes Type: coffee Number of servings: 1 ROS Constitutional Constitutional: Denies chills, fever(s), frequent falls, lethargy or weakness Eyes Eyes: Denies blind spots, change in vision or loss of vision ENT HEENT: Denies bleeding gums, hoarseness or sore throat Cardiovascular Cardiovascular: Denies abdominal pain, bluish discoloration of hand/feet, chest pain with activity, claudication, cold extremities, cyanosis, dyspnea on exertion, erythema on extremities, irregular heart rhythm, leg edema, leg ulcers, numbness in extremities or weakness in extremities Respiratory/Chest Respiratory/Chest: Denies cough, excessive phlegm production, shortness of breath at rest, shortness of breath with exertion or wheezing Gastrointestinal Gastrointestinal: Denies anorexia, change in stool character, constipation, diarrhea, melena or rectal bleeding Genitourinary Genitourinary: Denies dysuria or hematuria Musculoskeletal Musculoskeletal: Denies abnormal gait Integumentary Integumentary: Reports other Details: ; Denies erythema, non-healing lesions or wounds Neurologic Neurologic: Denies abnormal speech, focal weakness, headache(s), loss of vision, numbness, paresthesias or sensory deficit Hematologic/Lymphatic Hematologic/Lymphatic: Denies easy bleeding, easy bruising or lymphadenopathy Vital Signs Vital Signs Vital Signs: Weight Weight: 143 lb Body Mass Index (BMI) 25.3 Physical Exam Const alert, oriented x3, no apparent distress and healthy appearing General Appearance: cooperative; Negative for combative or lethargic Orientation / Consciousness: awake Exam Limitations: no limitations HEENT Head and Scalp: normocephalic and atraumatic Eyes EOMs intact bilaterally General Eye: normal appearance of both eyes Neck full ROM General: trachea midline Resp normal respiratory effort and no use of accessory muscles Effort and Inspection: Negative for labored, stridor or audible wheezes Cardio regular rate and regular rhythm Back/Spine Cervical Spine: cervical ROM normal Extremity full ROM, normal capillary refill and no clubbing, cyanosis or edema Skin no rashes or lesions noted and no wounds Neuro oriented x3, CN's II-XII intact bilaterally, no focal motor deficits and no sensory deficits noted Psych thought process normal, cooperative, affect normal, speech normal and activity/motor behavior normal Assessment & Plan Assessment/Plan (1) ESRD (end stage renal disease) on dialysis: PLAN: -remove catheter
--- NOTE | 2024-09-06 10:42 | PCM.OPRPT ---
Operative Report (Standard) Operative Information Date of Procedure: 09/06/24 Pre-Operative Diagnosis: End-stage renal disease with prior tunneled catheter no longer in use Post-Operative Diagnosis: Same Surgery/Procedure Performed: Removal right IJ tunneled dialysis catheter ticketing agent: No Type of Anesthesia: Local and Sedation,Conscious Procedure Start Time: 08:15 Procedure Stop Time: 09:00 Select all DRAINS/GRAFTS/IMPLANTS that apply: None Estimated Blood Loss: 6 Specimen collected: No Description of surgery: HPI: Patient is a 69-year-old female with end-stage renal disease currently on dialysis. She has a left upper arm AV fistula which is currently functioning well and her primary dialysis access. She has a prior right IJ tunneled catheter which is no longer in use so she presents now for removal. Description of procedure: Upon obtaining form consent and verification correct patient procedure site patient taken to Clinical Nursing Manager where she was positioned prepped and draped in usual sterile fashion. Time was performed, sedation administered Versed and fentanyl. Skin adjacent to the tunneled portion of the catheter was anesthetized 1% lidocaine from the skin entry point to the cuff. Skin incision made overlying the cuff from. Blunt and sharp dissection was used to dissect down to the catheter. Soft tissue attachments to the cuff were then incised and the cuff freed circumferentially. The catheter was then withdrawn a minute pressure held over the vein access site for 5 minutes at which point hemostasis was observed. The skin incision was then closed with 4-0 Monocryl and Dermabond. Dry sterile dressing was applied and the patient was taken recovery area with plan discharged home. Surgical Findings: See above Complications Complications: No
== END 2024-09-06 09:45 | disposition home or self-care (01) ==
PROVIDERS: PCP Internal Medicine; Referring Provider Surgery Trauma Surgery; Visit Provider Surgery Trauma Surgery
DX: Z45.2 Encounter for adjustment and management of vascular access device (principal); I12.0 Hypertensive chronic kidney disease with stage 5 chronic kidney disease or end stage renal disease; N18.6 End stage renal disease; Z99.2 Dependence on renal dialysis; E78.5 Hyperlipidemia, unspecified; Z79.51 Long term (current) use of inhaled steroids; Z79.899 Other long term (current) drug therapy; Z86.16 Personal history of COVID-19; Z87.891 Personal history of nicotine dependence
CPT/HCPCS: 36589; 99152; 99153; C1894

== ENCOUNTER 2024-09-17 17:09 | Emergency (ER) | payer MEDICARE, OTHER, SELFPAY ==
[2024-09-17 17:11] VITALS: BP 109/63; PULSE 107; RESP 17; TEMP 36.4; O2SAT 93
[2024-09-17] MEDS: traMADol 50 MG Tablet PO (19:29)
--- NOTE | 2024-09-17 19:35 | RAD_ITS ---
PROCEDURE: SHOULDER MIN 2 VIEWS 09/17/2024 REASON FOR EXAM: PAIN TECHNIQUE: Four views right shoulder COMPARISON: None. FINDINGS: RIGHT SHOULDER: Status post right shoulder glenohumeral replacement appears anatomic without evidence of hardware failure. No fracture or dislocation. The acromioclavicular joint appears within limits. Visualized right lung appears clear. RAD/Shoulder min 2 Views IMPRESSION: Status post right shoulder glenohumeral replacement appears anatomic without ev idence of hardware failure. No fracture or dislocation. Reading Location: [id number]
[2024-09-17 20:52] VITALS: BP 111/76; PULSE 79; RESP 16; TEMP 36.6; O2SAT 95
--- NOTE | 2024-09-17 20:59 | EX.ED.UPPERE ---
HPI History of Present Illness Chief Complaint: Upper Extremity Injury Informant: patient Narrative Narrative: History of reverse right shoulder approxi-7 years ago by [facility] Dr. Mckeon. On and off shoulder pain here recently worse today worse with movement. No fevers. Pain on top of the shoulder not in the joint. Denies trauma. Been using Tylenol. Dialysis patient still makes urine had a dialysis today. COPD on chronic oxygenation. Prior similar symptoms: Yes PFSH PFSH Medical History End stage renal disease on dialysis Pulmonary nodule Anemia of chronic disease Sepsis End stage chronic kidney disease Pneumonia End-stage renal disease (ESRD) Post-menopausal History of steroid therapy History of renal dialysis Blackout Gastric reflux Emphysema, unspecified Shortness of breath on exertion Normal Holter exam History of echocardiogram Hypertension Cardiology follow-up encounter History of heart attack History of atrial fibrillation Hemodialysis catheter malfunction Former cigarette smoker GERD (gastroesophageal reflux disease) Hyperlipidemia History of GI bleed Pleural effusion ESRD (end stage renal disease) on dialysis Essential hypertension NSTEMI (non-ST elevated myocardial infarction) EARNEST (acute kidney injury) Hx of ulcer disease Former smoker Atrial fibrillation Elevated blood pressure reading without diagnosis of hypertension Chronic hypoxemic respiratory failure Acute bronchospasm Acute exacerbation of chronic obstructive pulmonary disease Empyema of pleural space Syncope Bleeding ulcer Anemia requiring transfusions Lung nodules Pleurisy On home oxygen therapy Migraines Hyperglycemia Elevated serum creatinine Sinus tachycardia Fever and chills Dyspnea on exertion Acute bronchospasm COPD exacerbation Leukocytosis Community acquired pneumonia Anxiety Benign essential tremor Former tobacco use Pneumonia due to COVID-19 virus Asthma COPD (chronic obstructive pulmonary disease) Tobacco use Tremor Benign essential hypertension Home Medications ?Medication ?Instructions ?Recorded ?Last Taken ?Type albuterol sulfate 90 mcg/actuation 2 puff inhalation Q4H PRN PRN 08/28/15 07/23/24 History aerosol inhaler (Ventolin HFA) Shortness Of Breath montelukast 10 mg tablet 10 mg PO QHS ALLERGIES 02/25/18 07/22/24 History fluticasone propionate 50 2 spray intranasal QHS ALLERGIES 05/01/21 07/22/24 History mcg/actuation nasal spray,suspension atorvastatin 40 mg tablet 40 mg PO QHS 09/23/23 07/22/24 History isosorbide mononitrate 60 mg 60 mg PO DAILY 09/23/23 07/22/24 History tablet,extended release 24 hr nitroglycerin 0.4 mg sublingual 0.4 mg sublingual Q5-15M PRN chest 09/23/23 Unknown History tablet pain buspirone 10 mg tablet 10 mg PO BID 09/27/23 07/22/24 History vitamin B complex-vitamin C-folic 1 tab PO DAILY 05/22/24 07/22/24 History acid 0.8 mg tablet (Galina-Jose Elias) sucralfate 1 gram tablet 1 g PO DAILY GI 07/08/24 07/22/24 History acetaminophen 650 mg 650 mg PO Q6H PRN pain 07/23/24 Unknown History tablet,extended release (8 Hour Pain Reliever) cholecalciferol (vitamin D3) 25 25 mcg PO MOWEFR 07/23/24 07/20/24 History mcg (1,000 unit) capsule (Vitamin D3) guaifenesin 1,200 mg tablet, 1,200 mg PO BID #30 tabs 07/27/24 Unknown Rx extended release 12 hr (Mucus Relief ER) fluticasone fur. 100 mcg-umeclid 1 ea inhalation DAILY breathing 08/06/24 09/06/24 History 62.5 mcg-vilant 25 mcg inhalat.powder (Trelegy Ellipta) ipratropium 0.5 mg-albuterol 3 mg 3 ml continuous nebulization Q6H 08/06/24 Unknown History (2.5 mg base)/3 mL nebulization PRN PRN wheezing soln pantoprazole 40 mg tablet,delayed 40 mg PO BID 08/06/24 Unknown History release benzonatate 100 mg capsule 200 mg (2 x 100 mg) PO TID PRN PRN 08/10/24 Unknown Rx COUGH/CONGESTION 7 days #21 caps prednisone 10 mg tablet See Taper PO DAILY 28 days #70 tabs 08/10/24 Unknown Rx tramadol 50 mg tablet 50 mg PO Q6H PRN pain #12 tabs 09/17/24 Unknown Rx Allergy/AdvReac Type Severity Reaction Status Date / Time cephalexin monohydrate (From Allergy Chest Verified 09/17/24 17:13 Keflex) tightness vancomycin AdvReac Mild Itching Verified 09/17/24 17:13 Family History Other Adopted Surgical History Hx of surgical procedure Hx of colonoscopy AVF (arteriovenous fistula) (03/13/24) Hx of colonoscopy History of cardiac catheterization Hx of total shoulder replacement Hx of chest tube placement Hx of esophagogastroduodenoscopy H/O bilateral salpingectomy History of herniorrhaphy Hx of tonsillectomy Hx of cholecystectomy Social History adopted: Yes household members: family housing: house Smoking Status: Former smoker how long ago did patient quit smokin years ago alcohol intake: never substance use type: does not use caffeine: Yes Type: coffee Number of servings: 1 ROS ROS ED Constitutional Constitutional ED: Denies chills, fever(s) or sweats Cardiovascular Cardiovascular: Denies chest pain Respiratory/Chest Respiratory/Chest: Denies cough Gastrointestinal Gastrointestinal: Denies abdominal pain, diarrhea, nausea or vomiting Musculoskeletal Musculoskeletal: Reports extremity pain; Denies back pain or neck pain Neurologic Neurologic: Denies paresthesias or weakness EXAM Physical Exam Const Vital Signs: 09/17/24 17:11 09/17/24 20:52 Temperature 97.6 F L 98 F Temperature Source Temporal Pulse Rate 107 H 79 Respiratory Rate 17 16 Blood Pressure 109/63 111/76 Blood Pressure Mean 78 87 Pulse Ox 93 95 Oxygen Delivery Method Nasal Cannula Oxygen Flow Rate (L/min) 3 Positive well nourished and well developed Constitutional Narrative: Nasal cannula oxygenation General Appearance ED: well developed and NAD HEENT Reports moist mucous membranes normocephalic and atraumatic Eyes General Eye ED: Yes normal appearance of both eyes Neck full ROM Chest Wall Chest: Negative for tenderness Resp normal respiratory effort and normal air movement Effort and Inspection: symmetric chest movement; Negative for respiratory distress Cardio regular rate, regular rhythm and no murmurs Peripheral Pulses: pulses 2+ throughout GI normal to inspection, nondistended, normoactive bowel sounds and non-tender Palpation: Negative for guarding or rebound tenderness present Extremity Extremity Narrative: Right upper extremity there is no rash deltoid shoulder region. Noted abrasion the clavicle. No vesicles. No redness no warmth of the shoulder. Pain with abduction. No deformities. General Extremety ED: Yes tenderness; Negative for edema General Extremity: Negative for edema Neuro oriented x3 and no sensory deficits noted Sensorium / Orientation: awake and alert Skin no rashes or lesions noted and no wounds MDM MDM MDM Narrative Medical decision making narrative: Interventions / MDM: Differential diagnosis: Right shoulder pain, history of prosthesis Diagnosis considered but do not suspect: No clinical septic joint, no cellulitis My EKG interpretation: N/A Imaging independently reviewed and interpreted by myself: Three-view x-ray right shoulder: Prosthesis intact no dislocation. External documents reviewed: N/A Test considered but not ordered:N/A ED course: Patient pain with movement of shoulder no clinical infection or swelling or redness. Dialysis patient. Tylenol not improving. She is ordered for tramadol as she states like it was too strong for her from her PCP. X-ray of the shoulder ordered. X-ray with hardware intact, symptoms are improving on reevaluation. Short prescription of tramadol use as needed. Discussed follow-up with her [facility] doctors. All questions were answered. Re-evaluation: stable Disposition discussed with patient/family/significant other: Patient Case discussed with consulting clinician: N/A This note was generated with [employer] dictation software. It may contain incorrect words, spelling, and punctuation that were not noted in checking the note before signing. Radiography Diagnostic Testing: Clinical Impression(s) from Imaging Studies Shoulder X-Ray 09/17/24 19:35 IMPRESSION: Status post right shoulder glenohumeral replacement appears anatomic without evidence of hardware failure. No fracture or dislocation. Reading Location: [facility] Discharge Plan Triage Chief Complaint: Upper Extremity Injury ED Provider: Dariel Combs Dx/Rx/DC Orders Clinical Impression: Acute pain of right shoulder, History of COPD, ESRD (end stage renal disease) on dialysis Instructions: ED Shoulder Pain, Uncertain Cause Prescriptions: New tramadol 50 mg tablet 50 mg PO Q6H PRN (Reason: pain) Qty: 12 0RF No Action nitroglycerin 0.4 mg tablet, sublingual 0.4 mg sublingual Q5-15M PRN (Reason: chest pain) Rx Instructions: do not exceed 3 doses per episode isosorbide mononitrate 60 mg tablet extended release 24 hr 60 mg PO DAILY atorvastatin 40 mg tablet 40 mg PO QHS buspirone 10 mg tablet 10 mg PO BID albuterol sulfate [Ventolin HFA] 1 INHALER inhaler 2 puff inhalation Q4H PRN PRN (Reason: Shortness Of Breath) Patient Comments: shortness of breath montelukast 10 MG tablet 10 mg PO QHS fluticasone propionate 50 mcg/actuation spray,suspension 2 spray INTRANASAL QHS Patient Comments: Use 1 Etters in each nostril once daily. Galina-Jose Elias 0.8 mg tablet 1 tab PO DAILY sucralfate 1 gram tablet 1 g PO DAILY ipratropium-albuterol 0.5 mg-3 mg(2.5 mg base)/3 mL solution for nebulization 3 ml continuous nebulization Q6H PRN PRN (Reason: wheezing) pantoprazole 40 mg tablet,delayed release (DR/EC) 40 mg PO BID Trelegy Ellipta 100-62.5-25 mcg blister with device 1 ea INHALATION DAILY benzonatate 100 mg Capsule 200 mg PO TID PRN PRN (Reason: COUGH/CONGESTION) 7 Days Qty: 21 0RF prednisone 10 mg tablet See Taper PO DAILY 28 Days Qty: 70 0RF Taper: Prednisone Taper 40 mg WITH BREAKFAST for 7 Days and 0 Hour 30 mg WITH BREAKFAST for 7 Days and 0 Hour 20 mg WITH BREAKFAST for 7 Days and 0 Hour 10 mg WITH BREAKFAST for 7 Days and 0 Hour cholecalciferol (vitamin D3) [Vitamin D3] 25 mcg (1,000 unit) capsule 25 mcg PO MOWEFR Rx Instructions: PT GIVEN VITAMIN AT DIALYSIS acetaminophen [8 Hour Pain Reliever] 650 mg tablet extended release 650 mg PO Q6H PRN (Reason: pain) guaifenesin [Mucus Relief ER] 1,200 mg Tablet Extended Release 12hr 1,200 mg PO BID Qty: 30 0RF Patient Comments: pt unsure if she has been taking this Primary Care Provider: Julio Draper Referrals: [facility] [Outside] - 1 Week Julio Draper MD [Primary Care Provider] - Activity Restrictions/Additional Instructions: X-ray right shoulder prosthesis with no hardware malfunction noted. Take pain medicine as prescribed. Follow-up with [facility] with your doctors. Print Language: Kinyarwanda Disposition Disposition: Home, Self Care Discharge Date/Time: 09/17/24 20:53
== END 2024-09-17 20:53 | disposition home or self-care (01) ==
PROVIDERS: Emergency Provider Emergency Medicine; PCP Internal Medicine; Visit Provider Emergency Medicine
DX: M25.511 Pain in right shoulder (principal); I12.0 Hypertensive chronic kidney disease with stage 5 chronic kidney disease or end stage renal disease; N18.6 End stage renal disease; J44.9 Chronic obstructive pulmonary disease, unspecified; I48.91 Unspecified atrial fibrillation; Z87.891 Personal history of nicotine dependence; Z96.611 Presence of right artificial shoulder joint; E78.5 Hyperlipidemia, unspecified; Z99.2 Dependence on renal dialysis; I25.2 Old myocardial infarction; Z79.899 Other long term (current) drug therapy; Z79.51 Long term (current) use of inhaled steroids; F41.9 Anxiety disorder, unspecified; K21.9 Gastro-esophageal reflux disease without esophagitis; Z90.49 Acquired absence of other specified parts of digestive tract
CPT/HCPCS: 73030; 99282

== ENCOUNTER 2024-10-31 09:52 | Emergency (ER) | payer MEDICARE, OTHER, SELFPAY ==
[2024-10-31] VITALS (16 sets, daily range): BP systolic 117–144; BP diastolic 49–111; PULSE 86–95; RESP 13–23; TEMP 36.8–37.1; O2SAT 97–100; BMI 24.1
--- NOTE | 2024-10-31 10:15 | EKG12_ITS ---
Test Reason : CHEST PAIN Blood Pressure : */* mmHG Vent. Rate : 91 BPM Atrial Rate : 91 BPM P-R Int : 192 ms QRS Dur : 88 ms QT Int : 388 ms P-R-T Axes : 53 54 32 degrees QTcB Int : 477 ms Sinus rhythm with Premature atrial complexes Otherwise normal ECG Confirmed by ROB DORANTES, LUCRETIA ([id number]), copy editor RACHEL APARICIO ([id number]) on 11/01/2024 1:25:21 PM Referred By: Confirmed By: LUCRETIA RIVAS MD
--- NOTE | 2024-10-31 10:17 | ED.VIS.CHEST ---
HPI History of Present Illness Chief Complaint: Chest Pain Informant: patient Narrative Narrative: Brought in from dialysis for recurrent chest pain. She finished half her dialysis chest pressure pain into her neck. Currently resolved. Reports history of coronary disease had a heart cath a year ago however no intervention. She is dialysis Fridays. No cough symptoms. She still makes urine. No vomiting or diarrhea. She states she had symptoms 6 days ago night, she noted shortness of breath some chest tightness. She wears chronic 3 L oxygen. At that time took 1 prednisone did not help however took a nitroglycerin that resolved her symptoms. She felt fine over the weekend. Mild symptoms earlier this week. Symptoms returned today. She follows cardiology Dr. Salazar. She has an appointment tomorrow in the office she had symptoms a week ago. She history paroxysmal A-fib currently not on anticoagulants reported had 3 GI bleeds issues in the past. No leg swelling. Remote smoking history. No history of PE or DVT. Prior Similar Symptoms: Yes CVD Risk Factors: Positive for Hypertension and Hypercholesterolemia; Negative for Diabetes PE Risk Factors: Negative for Recent Travel/Surgery, Recent Immobilization or Prior DVT or PE [facility] Medical History End stage renal disease on dialysis Pulmonary nodule Anemia of chronic disease Sepsis End stage chronic kidney disease Pneumonia End-stage renal disease (ESRD) Post-menopausal History of steroid therapy History of renal dialysis Blackout Gastric reflux Emphysema, unspecified Shortness of breath on exertion Normal Holter exam History of echocardiogram Hypertension Cardiology follow-up encounter History of heart attack History of atrial fibrillation Hemodialysis catheter malfunction Former cigarette smoker GERD (gastroesophageal reflux disease) Hyperlipidemia History of GI bleed Pleural effusion ESRD (end stage renal disease) on dialysis Essential hypertension NSTEMI (non-ST elevated myocardial infarction) EARNEST (acute kidney injury) Hx of ulcer disease Former smoker Atrial fibrillation Elevated blood pressure reading without diagnosis of hypertension Chronic hypoxemic respiratory failure Acute bronchospasm Acute exacerbation of chronic obstructive pulmonary disease Empyema of pleural space Syncope Bleeding ulcer Anemia requiring transfusions Lung nodules Pleurisy On home oxygen therapy Migraines Hyperglycemia Elevated serum creatinine Sinus tachycardia Fever and chills Dyspnea on exertion Acute bronchospasm COPD exacerbation Leukocytosis Community acquired pneumonia Anxiety Benign essential tremor Former tobacco use Pneumonia due to COVID-19 virus Asthma COPD (chronic obstructive pulmonary disease) Tobacco use Tremor Benign essential hypertension Home Medications ?Medication ?Instructions ?Recorded ?Last Taken ?Type albuterol sulfate 90 mcg/actuation 2 puff inhalation Q4H PRN PRN 08/28/15 10/30/24 History aerosol inhaler (Ventolin HFA) Shortness Of Breath montelukast 10 mg tablet 10 mg PO QHS ALLERGIES 02/25/18 10/30/24 History fluticasone propionate 50 2 spray intranasal QHS ALLERGIES 05/01/21 10/30/24 History mcg/actuation nasal spray,suspension atorvastatin 40 mg tablet 40 mg PO QHS 09/23/23 10/30/24 History isosorbide mononitrate 60 mg 60 mg PO DAILY 09/23/23 10/30/24 History tablet,extended release 24 hr nitroglycerin 0.4 mg sublingual 0.4 mg sublingual Q5-15M PRN chest 09/23/23 Unknown History tablet pain buspirone 10 mg tablet 10 mg PO QHS 09/27/23 10/30/24 History vitamin B complex-vitamin C-folic 1 tab PO DAILY 05/22/24 10/30/24 History acid 0.8 mg tablet (Galina-Jose Elias) sucralfate 1 gram tablet 1 g PO DAILY GI 07/08/24 10/30/24 History acetaminophen 650 mg 650 mg PO Q6H PRN pain 07/23/24 10/31/24 History tablet,extended release (8 Hour Pain Reliever) cholecalciferol (vitamin D3) 25 25 mcg PO MOWEFR 07/23/24 10/29/24 History mcg (1,000 unit) capsule (Vitamin D3) ipratropium 0.5 mg-albuterol 3 mg 3 ml continuous nebulization Q6H 08/06/24 10/30/24 History (2.5 mg base)/3 mL nebulization PRN PRN wheezing soln pantoprazole 40 mg tablet,delayed 40 mg PO DAILY 08/06/24 10/30/24 History release alendronate 70 mg tablet 70 mg PO QWEEK 10/31/24 10/26/24 History azithromycin 250 mg tablet 250 mg PO DAILY 10/31/24 10/30/24 History calcium acetate(phosphat bind) 667 667 mg PO TID 10/31/24 10/30/24 History mg capsule fluticasone fur. 200 mcg-umeclid 1 ea inhalation DAILY 10/31/24 10/30/24 History 62.5 mcg-vilant 25 mcg inhalat.powder (Trelegy Ellipta) Allergy/AdvReac Type Severity Reaction Status Date / Time cephalexin monohydrate (From Allergy Chest Verified 10/31/24 09:56 Keflex) tightness vancomycin AdvReac Mild Itching Verified 10/31/24 09:56 Family History Other Adopted Surgical History Hx of surgical procedure Hx of colonoscopy AVF (arteriovenous fistula) (03/13/24) Hx of colonoscopy History of cardiac catheterization Hx of total shoulder replacement Hx of chest tube placement Hx of esophagogastroduodenoscopy H/O bilateral salpingectomy History of herniorrhaphy Hx of tonsillectomy Hx of cholecystectomy Social History adopted: Yes household members: family housing: house Smoking Status: Former smoker how long ago did patient quit smokin years ago alcohol intake: never substance use type: does not use caffeine: Yes Type: coffee Number of servings: 1 ROS ROS ED Constitutional Constitutional ED: Denies chills, fever(s) or sweats ENT ENT ED: Denies sore throat Cardiovascular Cardiovascular: Reports chest pain; Denies leg edema, palpitations or racing heartbeat Respiratory/Chest Respiratory/Chest: Reports dyspnea; Denies cough or dyspnea on exertion Gastrointestinal Gastrointestinal: Denies abdominal pain, diarrhea, nausea or vomiting Genitourinary Genitourinary ED: Denies dysuria, hematuria or urinary frequency Musculoskeletal Musculoskeletal: Denies back pain, extremity pain or neck pain Integumentary Denies rash or wounds Neurologic Neurologic: Denies headache(s), paresthesias or weakness EXAM Physical Exam Const Vital Signs: 10/31/24 09:53 10/31/24 10:06 10/31/24 10:15 Temperature 98.7 F Temperature Source Oral Pulse Rate 95 Respiratory Rate 17 Respiratory Effort Normal Non-Labored Blood Pressure 144/83 H Blood Pressure Mean 103 Pulse Ox 97 Oxygen Delivery Method Nasal Cannula Room Air Oxygen Flow Rate (L/min) 3 10/31/24 10:53 10/31/24 11:00 10/31/24 11:15 Temperature Temperature Source Pulse Rate 92 90 89 Respiratory Rate 15 21 H 23 H Respiratory Effort Blood Pressure 128/57 H 126/61 H 124/63 H Blood Pressure Mean 80 80 83 Pulse Ox 100 100 Oxygen Delivery Method Nasal Cannula Oxygen Flow Rate (L/min) 10/31/24 11:30 10/31/24 11:45 10/31/24 12:00 Temperature Temperature Source Pulse Rate 91 89 93 Respiratory Rate 18 14 17 Respiratory Effort Blood Pressure 133/63 H 117/69 122/69 H Blood Pressure Mean 82 80 86 Pulse Ox 100 100 100 Oxygen Delivery Method Oxygen Flow Rate (L/min) 10/31/24 12:15 10/31/24 12:30 10/31/24 12:45 Temperature Temperature Source Pulse Rate 88 86 86 Respiratory Rate 15 14 19 H Respiratory Effort Blood Pressure 122/65 H 123/64 H 128/59 H Blood Pressure Mean 82 81 80 Pulse Ox 99 100 100 Oxygen Delivery Method Oxygen Flow Rate (L/min) 10/31/24 13:00 10/31/24 13:15 10/31/24 13:30 Temperature Temperature Source Pulse Rate 86 87 88 Respiratory Rate 18 19 H 16 Respiratory Effort Blood Pressure 120/66 124/58 H 122/111 H Blood Pressure Mean 81 76 117 Pulse Ox 100 100 99 Oxygen Delivery Method Oxygen Flow Rate (L/min) 10/31/24 13:45 10/31/24 14:00 10/31/24 14:17 Temperature 98.3 F Temperature Source Pulse Rate 89 86 Respiratory Rate 13 16 Respiratory Effort Blood Pressure 124/69 H 126/49 H 127/67 H Blood Pressure Mean 84 73 87 Pulse Ox 99 100 Oxygen Delivery Method Oxygen Flow Rate (L/min) Positive well nourished and well developed Constitutional Narrative: 3 L nasal cannula. No distress. General Appearance ED: well developed and NAD HEENT Reports moist mucous membranes normocephalic and atraumatic Eyes General Eye ED: Yes normal appearance of both eyes Neck full ROM Chest Wall Chest: Negative for tenderness Resp normal respiratory effort and normal air movement Effort and Inspection: symmetric chest movement; Negative for respiratory distress Cardio regular rate, regular rhythm and no murmurs Peripheral Pulses: pulses 2+ throughout GI normal to inspection, nondistended, normoactive bowel sounds and non-tender Palpation: Negative for guarding or rebound tenderness present Extremity normal to inspection General Extremety ED: Negative for edema or tenderness General Extremity: Negative for edema Neuro oriented x3 and no sensory deficits noted Sensorium / Orientation: awake and alert Skin no rashes or lesions noted and no wounds Heart Score History: Slightly/Non-Suspicious ECG: Normal Age: >/= 65 years Risk Factors: 1 or 2 Risk Factors Troponin: >1 - <3 Normal Limit Score: 4 MDM MDM MDM Narrative Medical decision making narrative: Interventions / MDM: Differential diagnosis: Chest pain, end-stage renal disease on hemodialysis Diagnosis considered but do not suspect: ACS however EKG cardiac enzymes with no progression. Heart cath 2023 minimal disease. My EKG interpretation: Sinus rate of 91, no ST changes. T wave version lead III nonspecific. QTc 447. Imaging independently reviewed and interpreted by myself: 1 view chest x-ray: No acute process. Per radiology emphysema changes trace right pleural effusion stable from previous. External documents reviewed: Heart catheter records July 2023 performed at [facility]. Mild diffuse coronary disease throughout right coronary dominant system. She had a cath no report for an NSTEMI. Test considered but not ordered:N/A ED course: Currently asymptomatic stable on her chronic 3 L oxygen. EKG nonspecific T wave version lead III similar to old EKG. Cardiac workup initially. Chest x-ray ordered. 1140: Initial troponin returned at 52. Creatinine 2.14 BUN 15 she is a dialysis patient. Potassium 3.6. Hemoglobin 12.2. Repeat troponin down to 15. I discussed with on-call transitional care manager Dr. Riddle, discussed patient's history findings and labs. Discussed her cath from July 2023 with only minimal coronary disease. Did not recommend a 4-hour troponin as she is still symptom-free. She will follow-up in the office for reevaluation. She has an appointment tomorrow with Dr. Salazar. Re-evaluation: stable Disposition discussed with patient/family/significant other: Patient Case discussed with consulting clinician: N/A This note was generated with [employer] dictation software. It may contain incorrect words, spelling, and punctuation that were not noted in checking the note before signing. Lab Data Attestation: I reviewed the patient's lab results. Labs: Laboratory Results - last 24 hr 10/31/24 10/31/24 10:26 12:23 WBC 10.9 RBC 4.07 L Hgb 12.2 Hct 38.2 MCV 93.9 MCH 30.0 MCHC 31.9 L RDW Std Deviation 53.1 H RDW Coeff of Laly 15.6 H Plt Count 339 MPV 9.3 Immature Gran % (Auto) 0.500 Neut % (Auto) 72.5 H Lymph % (Auto) 14.8 L Mckean % (Auto) 8.9 Eos % (Auto) 2.7 Baso % (Auto) 0.6 Absolute Neuts (auto) 7.9 H Absolute Lymphs (auto) 1.61 Nucleated RBC % 0 Sodium 137 Potassium 3.6 Chloride 97 L Carbon Dioxide 27.3 Anion Gap 14 BUN 15 Creatinine 2.14 H Estim Creat Clear Calc 21.73 L Est GFR (MDRD) Non-Af 25 L BUN/Creatinine Ratio 7.0 L Glucose 95 Calcium 8.8 Troponin T High Sens 52 H Troponin T Hi Sens 2 Hr 50 H Radiography Diagnostic Testing: Clinical Impression(s) from Imaging Studies Chest X-Ray 10/31/24 10:42 IMPRESSION: 1. Emphysema with grossly similar RIGHT basilar airspace disease allowing for the difference in modality. This could reflect atelectasis and/or pneumonia. Known nodular opacity in the region better seen previously. Clinical follow-up again recommended. Consider CT chest in 1 month, ideally with IV contrast. 2. Trace RIGHT pleural effusion suspected, also present previously. 3. Given emphysema, additionally consider ongoing lung cancer screening as per the below. 4. Additional description as above. The USPSTF recommends annual screening for lung cancer with low-dose computed tomography (LDCT) in adults aged 50 to 80 years who have a 20 pack-year smoking history and currently smoke or have quit within the past 15 years. Reading Location: [id number] Discharge Plan Triage Chief Complaint: Chest Pain ED Provider: Dariel Combs Dx/Rx/DC Orders Clinical Impression: Chest pain, ESRD (end stage renal disease) on dialysis Instructions: ED Chest Pain, Uncertain Cause Prescriptions: No Action nitroglycerin 0.4 mg tablet, sublingual 0.4 mg sublingual Q5-15M PRN (Reason: chest pain) Rx Instructions: do not exceed 3 doses per episode isosorbide mononitrate 60 mg tablet extended release 24 hr 60 mg PO DAILY atorvastatin 40 mg tablet 40 mg PO QHS buspirone 10 mg tablet 10 mg PO QHS albuterol sulfate [Ventolin HFA] 1 INHALER inhaler 2 puff inhalation Q4H PRN PRN (Reason: Shortness Of Breath) Patient Comments: shortness of breath montelukast 10 MG tablet 10 mg PO QHS fluticasone propionate 50 mcg/actuation spray,suspension 2 spray INTRANASAL QHS Patient Comments: Use 1 [place] in each nostril once daily. Galina-Jose Elias 0.8 mg tablet 1 tab PO DAILY sucralfate 1 gram tablet 1 g PO DAILY ipratropium-albuterol 0.5 mg-3 mg(2.5 mg base)/3 mL solution for nebulization 3 ml continuous nebulization Q6H PRN PRN (Reason: wheezing) pantoprazole 40 mg tablet,delayed release (DR/EC) 40 mg PO DAILY cholecalciferol (vitamin D3) [Vitamin D3] 25 mcg (1,000 unit) capsule 25 mcg PO MOWEFR Rx Instructions: PT GIVEN VITAMIN AT DIALYSIS acetaminophen [8 Hour Pain Reliever] 650 mg tablet extended release 650 mg PO Q6H PRN (Reason: pain) calcium acetate(phosphat bind) 667 mg capsule 667 mg PO TID azithromycin 250 mg tablet 250 mg PO DAILY alendronate 70 mg tablet 70 mg PO QWEEK Trelegy Ellipta 200-62.5-25 mcg blister with device 1 ea inhalation DAILY Primary Care Provider: Julio Draper Referrals: Alayna Salazar MD [Med Staff - Active Staff] - Keep Rogerio appointment Julio Draper MD [Primary Care Provider] - Activity Restrictions/Additional Instructions: Your EKG normal. Workup negative. Troponin elevated however not heart attack range. You had review of your heart cath from a year ago nonobstructive disease. Discussed with Dr. Riddle in the ED. Follow-up with Dr. Salazar as scheduled tomorrow. Further testing can be performed there. If you develop recurrent worsening symptoms, return to the ED for reevaluation. Print Language: Fijian Disposition Disposition: Home, Self Care Discharge Date/Time: 10/31/24 14:23
[2024-10-31] MEDS: Aspirin 81 MG TAB.CHEW 324 MG PO (10:34)
--- NOTE | 2024-10-31 10:42 | RAD_ITS ---
PROCEDURE: CHEST 1 VIEW (PORTABLE), 10/31/2024 REASON FOR EXAM: CHEST PAIN TECHNIQUE: A single portable AP view of the chest was obtained. COMPARISON: CTA 08/06/2024 FINDINGS: Heart: Unremarkable. Mediastinum: Atherosclerosis. Lungs/pleura: Emphysema. Grossly similar mild RIGHT basilar airspace disease allowing for the difference in modality. Known nodular opacity in the region better seen previously. Suspected trace RIGHT pleural effusion as was present previously. No sizeable LEFT pleural effusion or visible pneumothorax. Bones: Thoracic levoscoliosis. Suspect demineralization. RIGHT shoulder arthroplasty. Surgical clips in the LEFT upper extremity.. Lines and support devices: None. Other: None. RAD/Chest 1 View (Portable) IMPRESSION: 1. Emphysema with grossly similar RIGHT basilar airspace disease allowing for t he difference in modality. This could reflect atelectasis and/or pneumonia. Known nodular opacity in the region better seen previously. Clinical follow-up again recommended. Consider CT chest in 1 month, ideally with IV contrast. 2. Trace RIGHT pleural effusion suspected, also present previously. 3. Given emphysema, additionally consider ongoing lung cancer screening as per the below. 4. Additional description as above. The USPSTF recommends annual screening for lung cancer with low-dose computed t omography (LDCT) in adults aged 50 to 80 years who have a 20 pack-year smoking history and currently smoke or have quit within the past 15 years. Reading Location: [id number]
[2024-10-31 10:43] LABS: Absolute Lymphocyte Count 1.61 X10^3/uL (0.83-4.51); Absolute Neutrophil Count 7.9 X10^3/uL (2.0-7.7); Basophil# 0.07 X10^3/uL; Basophil% 0.6 % (0-1); Eosinophil# 0.29 X10^3/uL; Eosinophils% 2.7 % (0-5); Hematocrit 38.2 % (37-47); Hemoglobin 12.2 g/dL (12.0-15.0); Lymphocyte # 1.61 X10^3/ul (0.83-4.51); Lymphocyte % 14.8 % (19-41); Mean Corp Hgb Conc 31.9 g/dL (32-36); Mean Corpuscular Volume 93.9 fL (81-99); Mean Platelet Vol. 9.3 fl (6.2-12.0); Monocyte# 0.97 X10^3/uL; Monocyte% 8.9 % (0-10); NRBC Flagged by Analyzer 0 % (0-5); Neutrophil # 7.91 X10^3/uL (2.7-7.7); Neutrophil % 72.5 % (47-70); Platelet Count 339 K/mm3 (150-450); RBC Distribution Width CV 15.6 % (11.6-14.6); RBC Distribution Width SD 53.1 fl (35.1-43.9); Red Blood Count 4.07 M/mm3 (4.2-5.4); White Blood Count 10.9 K/mm3 (4.4-11.0)
[2024-10-31 11:23] LABS: Troponin T High Sensitivity 52 ng/L (<=14)
[2024-10-31 11:29] LABS: Anion Gap 14 (5-15); BUN 15 mg/dL (4-19); Calcium,Total 8.8 mg/dL (7.6-11.0); Carbon Dioxide 27.3 mmol/L (21.0-32.0); Chloride 97 mmol/L (98-108); Creatinine, Serum 2.14 mg/dL (0.70-1.20); EST Glomerular Filtration Rate 25 (>60); Estimated Creatinine Clearance 21.73 ml/min (50-250); Glucose 95 mg/dL (70-99); Potassium 3.6 mmol/L (3.3-5.1); Sodium Level 137 mmol/L (133-145)
[2024-10-31 13:07] LABS: Troponin T High Sens 2 HR 50 ng/L (<=14)
== END 2024-10-31 14:23 | disposition home or self-care (01) ==
PROVIDERS: Emergency Provider Emergency Medicine; PCP Internal Medicine; Visit Provider Emergency Medicine
DX: R07.9 Chest pain, unspecified (principal); I12.0 Hypertensive chronic kidney disease with stage 5 chronic kidney disease or end stage renal disease; N18.6 End stage renal disease; J44.9 Chronic obstructive pulmonary disease, unspecified; I48.0 Paroxysmal atrial fibrillation; Z87.891 Personal history of nicotine dependence; E78.00 Pure hypercholesterolemia, unspecified; Z99.2 Dependence on renal dialysis; I25.10 Atherosclerotic heart disease of native coronary artery without angina pectoris; I25.2 Old myocardial infarction; Z99.81 Dependence on supplemental oxygen; Z79.899 Other long term (current) drug therapy; Z79.51 Long term (current) use of inhaled steroids; K21.9 Gastro-esophageal reflux disease without esophagitis; F41.9 Anxiety disorder, unspecified; Z96.619 Presence of unspecified artificial shoulder joint; Z90.49 Acquired absence of other specified parts of digestive tract
CPT/HCPCS: 71045; 80048; 84484; 85025; 93005; 99285; A4216

== ENCOUNTER → 2024-11-20 | Outpatient (CLI) | payer MEDICARE, OTHER, SELFPAY | END | disposition home or self-care (01) | LOC: PSN 13:01 | PROVIDERS: PCP Internal Medicine; Referring Provider Physician Assistant Medical; Visit Provider Physician Assistant Medical | DX: I48.0 Paroxysmal atrial fibrillation (principal) | CPT/HCPCS: 93225; 93226 ==

== ENCOUNTER 2025-01-03 09:29 | Day surgery (SDC) | payer MEDICARE, OTHER, SELFPAY ==
[2025-01-03 10:00] VITALS: BMI 25.0
--- NOTE | 2025-01-03 11:55 | PCM.HP.STD ---
HPI - General HPI Narrative SNEHA CARDENAS, is a 69 F who presents with left basilic fistula with diminished access flow testing. Able to complete session, no prolonged bleeding. [facility] Medical History End stage renal disease on dialysis Pulmonary nodule Anemia of chronic disease Sepsis End stage chronic kidney disease Pneumonia End-stage renal disease (ESRD) Post-menopausal History of steroid therapy History of renal dialysis Blackout Gastric reflux Emphysema, unspecified Shortness of breath on exertion Normal Holter exam History of echocardiogram Hypertension Cardiology follow-up encounter History of heart attack History of atrial fibrillation Hemodialysis catheter malfunction Former cigarette smoker GERD (gastroesophageal reflux disease) Hyperlipidemia History of GI bleed Pleural effusion ESRD (end stage renal disease) on dialysis Essential hypertension NSTEMI (non-ST elevated myocardial infarction) EARNEST (acute kidney injury) Hx of ulcer disease Former smoker Atrial fibrillation Elevated blood pressure reading without diagnosis of hypertension Chronic hypoxemic respiratory failure Acute bronchospasm Acute exacerbation of chronic obstructive pulmonary disease Empyema of pleural space Syncope Bleeding ulcer Anemia requiring transfusions Lung nodules Pleurisy On home oxygen therapy Migraines Hyperglycemia Elevated serum creatinine Sinus tachycardia Fever and chills Dyspnea on exertion Acute bronchospasm COPD exacerbation Leukocytosis Community acquired pneumonia Anxiety Benign essential tremor Former tobacco use Pneumonia due to COVID-19 virus Asthma COPD (chronic obstructive pulmonary disease) Tobacco use Tremor Benign essential hypertension Home Medications ?Medication ?Instructions ?Recorded ?Last Taken ?Type albuterol sulfate 90 mcg/actuation 2 puff inhalation Q4H PRN PRN 08/28/15 10/30/24 History aerosol inhaler (Ventolin HFA) Shortness Of Breath montelukast 10 mg tablet 10 mg PO QHS ALLERGIES 02/25/18 10/30/24 History fluticasone propionate 50 2 spray intranasal QHS ALLERGIES 05/01/21 01/03/25 History mcg/actuation nasal spray,suspension atorvastatin 40 mg tablet 40 mg PO QHS 09/23/23 10/30/24 History isosorbide mononitrate 60 mg 60 mg PO DAILY 09/23/23 10/30/24 History tablet,extended release 24 hr nitroglycerin 0.4 mg sublingual 0.4 mg sublingual Q5-15M PRN chest 09/23/23 Unknown History tablet pain buspirone 10 mg tablet 10 mg PO QHS 09/27/23 10/30/24 History vitamin B complex-vitamin C-folic 1 tab PO DAILY 05/22/24 10/30/24 History acid 0.8 mg tablet (Galina-Jose Elias) sucralfate 1 gram tablet 1 g PO DAILY GI 07/08/24 10/30/24 History acetaminophen 650 mg 650 mg PO Q6H PRN pain 07/23/24 10/31/24 History tablet,extended release (8 Hour Pain Reliever) cholecalciferol (vitamin D3) 25 25 mcg PO MOWEFR 07/23/24 10/29/24 History mcg (1,000 unit) capsule (Vitamin D3) ipratropium 0.5 mg-albuterol 3 mg 3 ml continuous nebulization Q6H 08/06/24 10/30/24 History (2.5 mg base)/3 mL nebulization PRN PRN wheezing soln pantoprazole 40 mg tablet,delayed 40 mg PO DAILY 08/06/24 10/30/24 History release alendronate 70 mg tablet 70 mg PO QWEEK 10/31/24 10/26/24 History azithromycin 250 mg tablet 250 mg PO DAILY 10/31/24 10/30/24 History calcium acetate(phosphat bind) 667 667 mg PO TID 10/31/24 10/30/24 History mg capsule fluticasone fur. 200 mcg-umeclid 1 ea inhalation DAILY 10/31/24 10/30/24 History 62.5 mcg-vilant 25 mcg inhalat.powder (Trelegy Ellipta) ferrous sulfate 325 mg (65 mg 325 mg PO QDAY 11/01/24 Unknown History iron) tablet,delayed release Allergy/AdvReac Type Severity Reaction Status Date / Time cephalexin monohydrate (From Allergy Chest Verified 11/01/24 11:35 Keflex) tightness vancomycin AdvReac Mild Itching Verified 11/01/24 11:35 Family History Other Adopted Surgical History Hx of surgical procedure Hx of colonoscopy AVF (arteriovenous fistula) (03/13/24) Hx of colonoscopy History of cardiac catheterization Hx of total shoulder replacement Hx of chest tube placement Hx of esophagogastroduodenoscopy H/O bilateral salpingectomy History of herniorrhaphy Hx of tonsillectomy Hx of cholecystectomy Social History adopted: Yes household members: family housing: house Smoking Status: Former smoker how long ago did patient quit smokin years ago alcohol intake: never substance use type: does not use caffeine: Yes Type: coffee Number of servings: 1 ROS Constitutional Constitutional: Denies chills, fever(s), frequent falls, lethargy or weakness Eyes Eyes: Denies blind spots, change in vision or loss of vision ENT HEENT: Denies bleeding gums, hoarseness or sore throat Cardiovascular Cardiovascular: Denies abdominal pain, bluish discoloration of hand/feet, chest pain with activity, claudication, cold extremities, cyanosis, dyspnea on exertion, erythema on extremities, irregular heart rhythm, leg edema, leg ulcers, numbness in extremities or weakness in extremities Respiratory/Chest Respiratory/Chest: Denies cough, excessive phlegm production, shortness of breath at rest, shortness of breath with exertion or wheezing Gastrointestinal Gastrointestinal: Denies anorexia, change in stool character, constipation, diarrhea, melena or rectal bleeding Genitourinary Genitourinary: Denies dysuria or hematuria Musculoskeletal Musculoskeletal: Denies abnormal gait Integumentary Integumentary: Reports other Details: ; Denies erythema, non-healing lesions or wounds Neurologic Neurologic: Denies abnormal speech, focal weakness, headache(s), loss of vision, numbness, paresthesias or sensory deficit Hematologic/Lymphatic Hematologic/Lymphatic: Denies easy bleeding, easy bruising or lymphadenopathy Vital Signs Vital Signs Vital Signs: Weight Weight: 145 lb 8 oz Body Mass Index (BMI) 25.0 Physical Exam Const alert, oriented x3, no apparent distress and healthy appearing General Appearance: cooperative; Negative for combative or lethargic Orientation / Consciousness: awake Exam Limitations: no limitations HEENT Head and Scalp: normocephalic and atraumatic Eyes EOMs intact bilaterally General Eye: normal appearance of both eyes Neck full ROM, no lymphadenopathy, thyroid normal and No no carotid bruits General: trachea midline; Negative for lymphadenopathy or tenderness Thyroid: thyroid normal Lymph Lymphatic: Negative for no lymphadenopathy noted Resp normal respiratory effort and no use of accessory muscles Effort and Inspection: Negative for labored, stridor or audible wheezes Cardio regular rate and regular rhythm Cardio Narrative: +thrill in fistula, diminished mid arm Peripheral Pulses: brachial pulses present and radial pulses present Back/Spine Cervical Spine: cervical ROM normal Extremity full ROM, normal capillary refill and no clubbing, cyanosis or edema Skin no rashes or lesions noted and no wounds Neuro oriented x3, CN's II-XII intact bilaterally, no focal motor deficits and no sensory deficits noted Psych thought process normal, cooperative, affect normal, speech normal and activity/motor behavior normal Assessment & Plan Assessment/Plan (1) Dialysis AV fistula malfunction: QUALIFIERS: Encounter type: initial encounter Qualified Code(s): T82.590A - Other mechanical complication of surgically created arteriovenous fistula, initial encounter PLAN: -fistulagram
--- NOTE | 2025-01-03 16:09 | PCM.OPRPT ---
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 She has recently had some excess difficulty with infiltrations as well as diminished access flow measurements so she presents now for fistulogram with possible invention. Description of procedure: Upon obtaining informed consent and verification correct patient procedure site the patient was taken to the Toy Department Manager where she was positioned prepped and draped in usual sterile fashion. Timeouts performed consultation administered Versed and fentanyl. Skin overlying the mid fistula was anesthetized 1% lidocaine the vessel accessed under ultrasound guidance with a micropuncture needle wire. This was then exchanged for a 6 Bulgarian fistula sheath oriented toward the arterial anastomosis. Through this hand-injection fistulogram including runoff and central venogram was performed. This revealed a small caliber fistula from the anastomosis for approximately 6 cm with 2 focal areas of high-grade stenosis greater than 75%. The remainder of the fistula was large caliber with no evidence of stenosis and brisk contrast transit into the outflow system with no central venous obstruction identified. Is felt that this segment was impairing the inflow into the fistula and resulting in their difficulties accessing and there flow measurements so the patient was then heparinized and allowed to circulate for 3 minutes. Through the sheath a command 18 wire was advanced and an intravascular sound probe advanced and a recorded pullback performed of the left radial artery, brachial artery, basilic vein fistula. This confirmed reference vessel size, lesion location, and anastomosis position. A 5 x 40 Serrantor scoring angioplasty balloon was advanced into position and inflated for multiple inflations across the lesion. Repeat fistulogram confirmed satisfactory lesion response with no extravasation or dissection and no significant residual stenosis. Next a Bard Madyson Sweet Unknown Studioss 5 x 60 paclitaxel coated angioplasty balloon was advanced overlying the entirety of the lesion inflated to nominal for 2 minutes and deflated withdrawn. Completion fistulogram confirmed satisfactory lesion response with no extravasation or dissection. There is improved thrill in the fistula and was noted to be more prominent when inspected visually. A nylon pursestring sutures in place at the access site and the sheath withdrawn followed by manual pressure until hemostasis was obtained. The patient was then taken to the recovery area for bedrest with plan discharged home. Surgical Findings: See above Complications Complications: No
== END 2025-01-03 14:20 | disposition home or self-care (01) ==
PROVIDERS: PCP Internal Medicine; Referring Provider Surgery Trauma Surgery; Visit Provider Surgery Trauma Surgery
DX: T82.590A Other mechanical complication of surgically created arteriovenous fistula, initial encounter (principal); I12.0 Hypertensive chronic kidney disease with stage 5 chronic kidney disease or end stage renal disease; N18.6 End stage renal disease; X58.XXXA Exposure to other specified factors, initial encounter; Z99.2 Dependence on renal dialysis; Z79.899 Other long term (current) drug therapy; Z87.891 Personal history of nicotine dependence
CPT/HCPCS: 36902; 37252; 37253; 76937; 99152; 99153; C1725; C1753; C1769; C1894; C2623; Q9967

== ENCOUNTER 2025-02-09 14:47 | Emergency (ER) | payer MEDICARE, OTHER, SELFPAY ==
[2025-02-09 14:48] VITALS: BP 159/70; PULSE 101; RESP 20; TEMP 36.8; O2SAT 99; BMI 23.8
--- NOTE | 2025-02-09 15:19 | EX.ED.DYSGE1 ---
HPI History of Present Illness Chief Complaint: Other, Pain/Inj Informant: patient Onset/Context/Timing Onset: Yesterday Context: Gradual Onset Timing: Intermittent Quality: Shocking Location: Bilateral flank areas and right shoulder Worsened by: Movement Relieved by: Heat Narrative Narrative: Patient presents with right shoulder and back pain that began yesterday. Patient states her pain started in her right shoulder. Patient states she has been having intermittent pain in her low back. Patient describes it as a shocking sensation. Patient states it did get better with heat. Patient states nothing makes it worse. Patient states her shoulder pain is worse with movement. Patient denies any trauma or injury. Patient denies any paresthesias or weakness. [facility] Medical History End stage renal disease on dialysis Pulmonary nodule Anemia of chronic disease Sepsis End stage chronic kidney disease Pneumonia End-stage renal disease (ESRD) Post-menopausal History of steroid therapy History of renal dialysis Blackout Gastric reflux Emphysema, unspecified Shortness of breath on exertion Normal Holter exam History of echocardiogram Hypertension Cardiology follow-up encounter History of heart attack History of atrial fibrillation Hemodialysis catheter malfunction Former cigarette smoker GERD (gastroesophageal reflux disease) Hyperlipidemia History of GI bleed Pleural effusion ESRD (end stage renal disease) on dialysis Essential hypertension NSTEMI (non-ST elevated myocardial infarction) EARNEST (acute kidney injury) Hx of ulcer disease Former smoker Atrial fibrillation Elevated blood pressure reading without diagnosis of hypertension Chronic hypoxemic respiratory failure Acute bronchospasm Acute exacerbation of chronic obstructive pulmonary disease Empyema of pleural space Syncope Bleeding ulcer Anemia requiring transfusions Lung nodules Pleurisy On home oxygen therapy Migraines Hyperglycemia Elevated serum creatinine Sinus tachycardia Fever and chills Dyspnea on exertion Acute bronchospasm COPD exacerbation Leukocytosis Community acquired pneumonia Anxiety Benign essential tremor Former tobacco use Pneumonia due to COVID-19 virus Asthma COPD (chronic obstructive pulmonary disease) Tobacco use Tremor Benign essential hypertension Home Medications ?Medication ?Instructions ?Recorded ?Last Taken ?Type albuterol sulfate 90 mcg/actuation 2 puff inhalation Q4H PRN PRN 08/28/15 10/30/24 History aerosol inhaler (Ventolin HFA) Shortness Of Breath montelukast 10 mg tablet 10 mg PO QHS ALLERGIES 02/25/18 10/30/24 History fluticasone propionate 50 2 spray intranasal QHS ALLERGIES 05/01/21 01/03/25 History mcg/actuation nasal spray,suspension atorvastatin 40 mg tablet 40 mg PO QHS 09/23/23 10/30/24 History isosorbide mononitrate 60 mg 60 mg PO DAILY 09/23/23 10/30/24 History tablet,extended release 24 hr nitroglycerin 0.4 mg sublingual 0.4 mg sublingual Q5-15M PRN chest 09/23/23 Unknown History tablet pain buspirone 10 mg tablet 10 mg PO QHS 09/27/23 10/30/24 History vitamin B complex-vitamin C-folic 1 tab PO DAILY 05/22/24 10/30/24 History acid 0.8 mg tablet (Galina-Jose Elias) acetaminophen 650 mg 650 mg PO Q6H PRN pain 07/23/24 10/31/24 History tablet,extended release (8 Hour Pain Reliever) ipratropium 0.5 mg-albuterol 3 mg 3 ml continuous nebulization Q6H 08/06/24 10/30/24 History (2.5 mg base)/3 mL nebulization PRN PRN wheezing soln pantoprazole 40 mg tablet,delayed 40 mg PO DAILY 08/06/24 10/30/24 History release alendronate 70 mg tablet 70 mg PO QWEEK 10/31/24 10/26/24 History calcium acetate(phosphat bind) 667 667 mg PO TID 10/31/24 10/30/24 History mg capsule fluticasone fur. 200 mcg-umeclid 1 ea inhalation DAILY 10/31/24 10/30/24 History 62.5 mcg-vilant 25 mcg inhalat.powder (Trelegy Ellipta) ferrous sulfate 325 mg (65 mg 325 mg PO QDAY 11/01/24 Unknown History iron) tablet,delayed release ergocalciferol (vitamin D2) 1,250 1,250 mcg PO QWEEK 01/24/25 Unknown History mcg (50,000 unit) capsule sucralfate 1 gram tablet 1 g PO DAILY PRN GI 01/24/25 Unknown History hydrocodone-acetaminophen 5-325mg 1 tab PO Q6H PRN PRN Pain 3 days 02/09/25 Unknown Rx 5mg-325mg #10 TABLETS Allergy/AdvReac Type Severity Reaction Status Date / Time cephalexin monohydrate (From Allergy Chest Verified 02/09/25 14:56 Keflex) tightness vancomycin AdvReac Mild Itching Verified 02/09/25 14:56 Family History Other Adopted Surgical History Hx of surgical procedure Hx of colonoscopy AVF (arteriovenous fistula) (03/13/24) Hx of colonoscopy History of cardiac catheterization Hx of total shoulder replacement Hx of chest tube placement Hx of esophagogastroduodenoscopy H/O bilateral salpingectomy History of herniorrhaphy Hx of tonsillectomy Hx of cholecystectomy Social History adopted: Yes household members: family housing: house Smoking Status: Former smoker how long ago did patient quit smokin years ago alcohol intake: never substance use type: does not use caffeine: Yes Type: coffee Number of servings: 1 ROS ROS ED Constitutional Constitutional ED: Denies chills or fever(s) Eyes Eyes: Denies blurry vision or change in vision ENT ENT ED: Denies rhinorrhea or sore throat Cardiovascular Cardiovascular: Denies chest pain or palpitations Respiratory/Chest Respiratory/Chest: Reports cough; Denies dyspnea Gastrointestinal Gastrointestinal: Denies nausea or vomiting Genitourinary Genitourinary ED: Denies dysuria or hematuria Musculoskeletal Musculoskeletal: Reports back pain and neck pain Integumentary Denies abscess or rash Neurologic Neurologic: Denies headache(s) or weakness Allergic/Immunologic Allergic/Immunologic ED: Denies mouth swelling or urticaria EXAM Physical Exam Const Vital Signs: 02/09/25 14:48 02/09/25 16:10 02/09/25 16:47 Temperature 98.3 F Temperature Source Oral Pulse Rate 101 H 83 Respiratory Rate 20 H 16 Blood Pressure 159/70 H 138/66 H Blood Pressure Mean 99 90 Pulse Ox 99 96 96 Oxygen Delivery Method Nasal Cannula Nasal Cannula Room Air Oxygen Flow Rate (L/min) 3 3 02/09/25 18:00 Temperature Temperature Source Pulse Rate 78 Respiratory Rate 16 Blood Pressure 132/63 H Blood Pressure Mean 86 Pulse Ox 96 Oxygen Delivery Method Room Air Oxygen Flow Rate (L/min) Positive well nourished and well developed General Appearance ED: well developed and NAD HEENT Reports moist mucous membranes Neck supple and no JVD Resp normal respiratory effort and clear to auscultation bilaterally Cardio regular rate and regular rhythm GI non-tender and non-distended Palpation: soft Back/Spine General Back: CVA tenderness bilateral Extremity Extremity Narrative: There is diffuse tenderness over the right shoulder. Range of motion was limited in all motions of the right shoulder secondary to pain. There is no deformity noted. Strength is 5/5 bilaterally in the upper extremities. There are no sensory deficits noted. Radial pulses are equal bilaterally. Neuro oriented x3, CN's II-XII intact bilaterally and no sensory deficits noted Sensorium / Orientation: alert Psych mental status grossly normal MDM MDM MDM Narrative Medical decision making narrative: Differential diagnosis includes right shoulder strain, occult fracture, lumbar strain, ureteral calculus, pyelonephritis, urinary tract infection, cardiac dysrhythmia, cardiac ischemia, pneumonia, and bronchitis. X-rays of the right shoulder will be obtained to assess for occult fracture and dislocation. CT scan of the abdomen and pelvis will be obtained to assess for ureteral calculus and pyelonephritis. EKG will be obtained to assess for cardiac dysrhythmia or cardiac ischemia. CBC will be obtained to assess for leukocytosis and anemia. Basic metabolic profile will be obtained to assess for electrolyte abnormality and renal function. Urinalysis will be obtained to assess for urinary tract infection and hematuria. High-sensitivity troponin will be obtained to assess for cardiac ischemia. History & Record Review Additional record(s) reviewed:: Prior outpatient record, Prior ED visit and Prior labs Lab Data Attestation: I reviewed the patient's lab results. Lab results narrative: CBC was reviewed. There is a mild anemia with a hemoglobin of 11.1 and hematocrit 36.3. These are consistent with previous results. Basic metabolic profile was reviewed. BUN was slightly elevated at 32 and creatinine was 3.19. Glucose was slightly elevated at 130. Initial high-sensitivity troponin was reviewed and was 47. 2-hour repeat high-sensitivity troponin was reviewed and was 42. These are likely elevated due to her chronic kidney disease. Urinalysis was reviewed. There is no evidence of urinary tract infection. Occult blood was 150 with 5-10 red blood cells. Labs: Laboratory Results - last 24 hr 02/09/25 02/09/25 02/09/25 15:48 16:55 18:20 WBC 7.2 RBC 3.69 L Hgb 11.1 L Hct 36.3 L MCV 98.4 MCH 30.1 MCHC 30.6 L RDW Std Deviation 59.6 H RDW Coeff of Laly 16.5 H Plt Count 235 MPV 9.9 Immature Gran % (Auto) 1.400 H Neut % (Auto) 84.2 H Lymph % (Auto) 9.6 L [place] % (Auto) 3.9 Eos % (Auto) 0.3 Baso % (Auto) 0.6 Absolute Neuts (auto) 6.1 Absolute Lymphs (auto) 0.69 L Nucleated RBC % 0 Sodium 139 Potassium 4.5 Chloride 100 Carbon Dioxide 27.7 Anion Gap 12 BUN 32 H Creatinine 3.19 H Estim Creat Clear Calc 14.58 L Est GFR (MDRD) Non-Af 15 L BUN/Creatinine Ratio 10.1 Glucose 130 H Calcium 9.3 Troponin T High Sens 47 H D Troponin T Hi Sens 2 Hr 42 H Urine Color Yellow Urine Clarity Sl. Cloudy Urine pH 6.5 Ur Specific [place] 1.010 Urine Protein 100 H Urine Glucose (UA) Normal Urine Ketones Negative Urine Occult Blood 150 H Urine Nitrite Negative Urine Bilirubin Negative Urine Urobilinogen Normal Ur Leukocyte Esterase Negative Urine RBC 5-10 SEEN Urine WBC 0 SEEN Ur Squamous Epith Cells 0-5 SEEN Urine Bacteria RARE Urine Mucus 0 SEEN Radiography Chest X-Ray - ED: 2 View, Read by ED Physician, Read by Radiologist and No Acute Disease Diagnostic Testing: Clinical Impression(s) from Imaging Studies Abdomen/Pelvis CT 02/09/25 15:29 IMPRESSION: No acute abdominopelvic finding. Chronic findings as described. Reading Location: [facility] Chest X-Ray 02/09/25 16:05 IMPRESSION: NO ACUTE FINDINGS. Reading Location: [facility] Shoulder X-Ray 02/09/25 16:05 IMPRESSION: NO ACUTE FRACTURE OR DISLOCATION. Reading Location: [facility] X-rays of the right shoulder were obtained. There are 4 views. On my independent interpretation, there is no acute fracture or dislocation noted. Radiologist also interpreted the x-rays and agrees. PA and lateral chest x-ray was obtained. There are 2 views. On my independent interpretation, lung zepeda are clear. There is normal cardiac silhouette. Bony thorax is normal. There is no acute process noted. Radiologist also interpreted the x-ray and agrees. CT scan of the abdomen and pelvis was obtained. There is no acute abnormality noted. There is no free air or free fluid. There is no evidence of ureteral calculus. This was interpreted by the radiologist was also independently reviewed by myself. EKG Initial EKG: Attestation: I personally reviewed and interpreted this EKG as follows: Interpretation: Sinus Rhythm (93) and No Acute Injury Pattern Comments: EKG was obtained. On my independent interpretation, it showed a normal sinus rhythm with a rate of 93. MN interval, QRS interval, and QTc intervals were all normal. [place] was normal. There are no acute ST or T wave changes. Prior EKG tracings: available for review Prior: Unchanged (10/31/2024) Treatment and Re-Evaluation :: Patient was given a dose of morphine and Zofran initially. Patient states this improved her pain. Patient was advised of her findings. Patient stated that her pain in her shoulder was starting to come back. Patient was given a dose of Haynes. Patient was given a prescription for a short course of Haynes. Patient was advised that this is most likely musculoskeletal in etiology. Patient was instructed to follow-up with her primary care physician in 5 to 7 days. Patient was instructed to return if worse in any way. Patient understood and was agreeable with the plan. All questions were answered. Discharge Plan Triage Chief Complaint: Other, Pain/Inj ED Provider: Livan Murry Dx/Rx/DC Orders Clinical Impression: Acute pain of right shoulder, Acute low back pain, COPD (chronic obstructive pulmonary disease) Instructions: ED Back Pain (Acute or Chronic), ED Shoulder Pain, Uncertain Cause Prescriptions: New hydrocodone-acetaminophen 5-325 mg tablet 1 tab PO Q6H PRN PRN (Reason: Pain) 3 Days Qty: 10 0RF No Action nitroglycerin 0.4 mg tablet, sublingual 0.4 mg sublingual Q5-15M PRN (Reason: chest pain) Rx Instructions: do not exceed 3 doses per episode isosorbide mononitrate 60 mg tablet extended release 24 hr 60 mg PO DAILY atorvastatin 40 mg tablet 40 mg PO QHS buspirone 10 mg tablet 10 mg PO QHS ferrous sulfate 325 mg (65 mg iron) tablet,delayed release (DR/EC) 325 mg PO QDAY ergocalciferol (vitamin D2) 1,250 mcg (50,000 unit) capsule 1,250 mcg PO QWEEK albuterol sulfate [Ventolin HFA] 1 INHALER inhaler 2 puff inhalation Q4H PRN PRN (Reason: Shortness Of Breath) Patient Comments: shortness of breath montelukast 10 MG tablet 10 mg PO QHS fluticasone propionate 50 mcg/actuation spray,suspension 2 spray INTRANASAL QHS Patient Comments: Use 1 Molt in each nostril once daily. Galina-Jose Elias 0.8 mg tablet 1 tab PO DAILY sucralfate 1 gram tablet 1 g PO DAILY PRN (Reason: GI) ipratropium-albuterol 0.5 mg-3 mg(2.5 mg base)/3 mL solution for nebulization 3 ml continuous nebulization Q6H PRN PRN (Reason: wheezing) pantoprazole 40 mg tablet,delayed release (DR/EC) 40 mg PO DAILY acetaminophen [8 Hour Pain Reliever] 650 mg tablet extended release 650 mg PO Q6H PRN (Reason: pain) calcium acetate(phosphat bind) 667 mg capsule 667 mg PO TID alendronate 70 mg tablet 70 mg PO QWEEK Trelegy Ellipta 200-62.5-25 mcg blister with device 1 ea inhalation DAILY Primary Care Provider: Julio Draper Referrals: Julio Draper MD [Primary Care Provider] - 5-7 Days Print Language: [place] Disposition Disposition: Home, Self Care
--- OUTSIDE RECORDS SUMMARY | 2025-02-09 15:27 | XMS RPT_ITS | CCD ---
Author Organization [facility] Inform ion Partnership [facility] Care Team Providers Care Fashion Show Director Name Role Phone RICHA, SENAIT Doyle Attending Unavailable RICHA, SENAIT Doyle Primary Care Unavailable RICHA, SENAIT Doyle Admitting Unavailable RICHA, SENAIT Doyle Attending Unavailable RICHA, SENAIT Doyle Primary Care Unavailable RICHA, SENAIT Doyle Admitting Unavailable Julio Draper MD Primary Care Provider Julio Draper MD Primary Care Provider Julio Draper MD Primary Care Provider Dr. Julio Draper Primary Care Provider Dr. Zach Thomas Emergency Provider Dr. January Perez Admit Provider Dr. January Perez Other Provider Dr. Yemi Celaya Attending Provider Dr. Yemi Celaya Other Provider Dr. Julio Draper Primary Care Provider Dr. Mikael Swartz Emergency Provider Dr. Gabby Sutherland Admit Provider Dr. Gabby Sutherland Other Provider Dr. Kapil Doyle Other Provider Dr. Adrian Nieves Attending Provider Dr. Adrian Nieves Other Provider Dr. Pao Weeks Other Provider Unavailable Dr. Ford Graff Other Provider Unavailab charlene Jovel SASH CLAMP OPERATOR, SASH CLAMP OPERATOR-C Sheridan Other Provider Koko, Dr. Gabby Ignacio Attending Provider Dr. Alan Riddle Attending Provider PHYSICIAN, NONE Attending Unavailable PHYSICIAN, NONE Primary Care Unavailable Dr. Julio Draper Primary Care Provider Dr. Mikael Swartz Emergency Provider Kor, Dr. Gabby Ignacio Admit Provider Korkierra, Dr. Gabby Ignacio Attending Provider Korkierra, Dr. Gabby Ignacio Other Provider Dr. Kapil Doyle Other Provider Dr. Adrian Nieves Other Provider Dr. Pao Weeks Other Provider Unavailable Dr. Ford Graff Other Provider Unavailab charlene Jovel SASH CLAMP OPERATOR, SASH CLAMP OPERATOR-C Sheridan Other Provider Dr. Alayna Salazar Attending Provider Dr. Adrian Nieves Referring Provider Dr. Pao Weeks Attending Provider Unavailabl e Dr. Td Pillai Other Provider Dr. Td Pillai Attending Provider Friend, Dr. Navarro Attending Provider Koko, Dr. Gabby Ignacio Referring Provider Dr. Kapil Doyle Attending Provider Dr. Robel Funk Other Provider ALFRED Ruffin Attending Provider Dr. Robel Funk Attending Provider Dr. Robel Funk Referring Provider MD Guido Oliveira Emergency Provider Dr. Edis Mayo Admit Provider Unavailable Dr. Edis Mayo Attending Provider Unavailable Dr. Edis Mayo Other Provider Unavailable Dr. Yemi Celaya Attending Provider Dr. Yemi Celaya Other Provider Dr. Julio Draper Primary Care Provider Dr. Mikael Swartz Emergency Provider Koko, Dr. Gabby Ignacio Admit Provider Korkierra, Dr. Gabby Ignacio Attending Provider Korkierra, Dr. Gabby Ignacio Other Provider Dr. Kapil Doyle Other Provider Dr. Adrian Nieves Other Provider Dr. Pao Weeks Other Provider Unavailable Dr. Ford Graff Other Provider Unavailab charlene Jovel SASH CLAMP OPERATOR, SASH CLAMP OPERATOR-C Sheridan Other Provider Dr. Adrian Nieves Attending Provider Dr. Robel Funk Referring Provider Dr. Alayna Salazar Attending Provider Dr. Adrian Nieves Referring Provider Dr. Alan Riddle Attending Provider Dr. Pao Weeks Attending Provider Unavailabl e Dr. Td Pillai Other Provider Dr. Td Pillai Attending Provider Dr. Ramon Antunez Attending Provider Dr. Gabby Sutherland Referring Provider Dr. Kapil Doyle Attending Provider Dr. Robel Funk Other Provider ABDIRAHMAN Ruffin-Martha Sales Attending Provider Dr. Robel Funk Attending Provider MD Guido Oliveira Emergency Provider Dr. Edis Mayo Admit Provider Unavailable Dr. Edis Mayo Attending Provider Unavailable Dr. Edis Mayo Other Provider Unavailable Dr. Yemi Celaya Attending Provider Dr. Yemi Celaya Other Provider Dr. Zach Thomas Emergency Provider Dr. Diana Santillan Admit Provider Dr. Diana Santillan Other Provider Dr. Chris Shepard Other Provider Unavailable Primary Care Provider Unavailabl Dr. Edis Howard Referring Provider Unavailable Yomi, Dr. Bragg Referring Provider Dr. Edis Donovan Referring Provider Unavail able Dr. 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 Julio Draper MD Primary Care Provider Dr. Julio Draper MD Referring Provider Dr. Livan Love MD Attending Provider Dr. Livan Love MD Referring Provider Dr. Livan Love MD Other Provider Cheryl Babcock Attending Provider Dr. Livan Murry DO Attending Provider Dr. Livan Murry DO Emergency Provider Dr. Hoang Foster DO Emergency Provider Dr. January Perez DO Admit Provider Dr. January Perez DO Other Provider Dr. Adelia Lawson MD Other Provider Tyrell DORANTES, Dr. Ortiz Attending Provider Dmitriy DORANTES, Dr. Mihai Kulkarni Other Provider Chris PRUETT, Dr. Sin Attending Provider Dmitriy DORANTES, Dr. Mihai Kulkarni Attending Provider Tyrell DORANTES, Dr. Ortiz Other Provider Nate DORANTES, Dr. Lovelace Emergency Provider [phone] Koko DORANTES, Dr. Gabby Ignacio Admit Provider Koko DORANTES, Dr. Gabby Ignacio Attending Provider Vicky DORANTES, Dr. Banda Other Provider Koko DORANTES, Dr. Gabby Ignacio Other Provider Charlene PRUETT, Dr. Vieira Attending Provider Charlene PRUETT, Dr. Vieira Emergency Provider [phone] Yomi DORANTES, Dr. Bragg Admit Provider Yomi DORANTES, Dr. Bragg Other Provider Dr. Robel Funk DO Attending Provider Yomi DORANTES, Dr. Bragg Attending Provider Dr. Robel Funk DO Other Provider Pedro DORANTES, Dr. Kim Primary Care Provider Ivan DORANTES, Dr. Licona Attending Provider [phone] Livan Love MD Referring Provider Ivna DORANTES, Dr. Licona Other Provider Pedro DORANTES, Dr. Kim Referring Provider Cheryl Babcock Attending Provider Lorna Stout Attending Provider JULIO DRAPER Primary Care Unavailable MAGALI NIEVES Referring Unavailable JULIO DRAPER Primary Care Unavailable JULIO DRAPER Attending Unavailable JULIO DRAPER Primary Care Unavailable DRAPER, KEHINDE Attending Unavailable DRAPER, KEHINDE Attending Unavailable DRAPER, KEHINDE Primary Care Unavailable DRAPER, KEHINDE Primary Care Unavailable LUNA SWARTZ Referring Unavailable DRAPER, KEHINDE Primary Care Unavailable DRAPER, KEHINDE Attending Unavailable DRAPER, KEHINDE Primary Care Unavailable MAGALI NIEVES Referring Unavailable BROWN, MAGALI HERNANDEZ Attending Unavailable DRAPER, KEHINDE Attending Unavailable DRAPER, KEHINDE Primary Care Unavailable DRAPER, KEHINDE Primary Care Unavailable JEAN-PIERRE VITALE Attending Unavailable MAGALI NIEVES Referring Unavailable DRAPER, KEHINDE Primary Care Unavailable RYAN TAFOYA Attending Unavailable DRAPER, KEHINDE Primary Care Unavailable ANGELAHNRYAN MENON Referring Unavailable CALVIN PADGETT Attending Unavailable DRAPER, KEHINDE Attending Unavailable DRAPER, KEHINDE Primary Care Unavailable DRAPER, KEHINDE Primary Care Unavailable DRAPER, KEHINDE Attending Unavailable SELF Referring Unavailable DRAPER, KEHINDE Primary Care Unavailable DRAPER, KEHINDE Attending Unavailable DRAPER, KEHINDE Referring Unavailable DRAPER, KEHINDE Primary Care Unavailable JEAN-PIERRE VITALE Attending Unavailable DRAPER, KEHINDE Primary Care Unavailable DRAPER, KEHINDE Primary Care Unavailable DRAPER, KEHINDE Attending Unavailable DRAPER, KEHINDE Referring Unavailable DRAPER, KEHINDE Primary Care Unavailable DRAPER, KEHINDE Referring Unavailable DRAPER, KEHINDE Primary Care Unavailable Draper Dr. Julio DORANTES Primary Care Provider Dr. Livan Love MD Attending Provider [phone] Dr. Livan Love MD Referring Provider Dr. Livan Love MD Other Provider Dr. Dariel Combs DO Attending Provider Dr. Dariel Combs DO Emergency Provider [phone] Julio Draper MD Referring Provider [phone] Cheryl Babcock Attending Provider Lorna Stout Attending Provider [phone] Lorna Stout Referring Provider Martin DORANTES, Dr. Catalan Attending Provider Pedro DORANTES, Dr. Kim Primary Care Provider Charlene PRUETT, Dr. Vieira Attending Provider Charlene PRUETT, Dr. Vieira Emergency Provider Pedro DORANTES, Dr. Kim Referring Provider Ivan DORANTES, Dr. Licona Attending Provider Ivan DORANTES, Dr. Licona Referring Provider Ivan DORANTES, Dr. Licona Other Provider Koram, Gabby Sandee Attending Unavailable Draper, Julio Primary Care Unavailable Koram, Gabby Sandee Admitting Unavailable Renny, Jayaprakas Consulting Unavailable Solo Perry Consulting Unavailable Draper, Julio Primary Care Unavailable Rosmery Perezyn Admitting Unavailable Rosmery Perezyn Consulting Unavailable Diana Santillan Attending Unavailable Renny, Jayaprakas Consulting Unavailable Dmitriy Mihai F Consulting Unavailable Draper, Julio Primary Care Unavailable Ivan Livan Referring Unavailable Livan Love Attending Unavailable Yomi, Yemi Consulting Unavailable Yemi Celaya Attending Unavailable Yomi, Yemi Admitting Unavailable Draper, Julio Primary Care Unavailable Diana Santillan Attending Unavailable Chris, January Admitting Unavailable Chris, January Consulting Unavailable Draper, Julio Primary Care Unavailable Renny, Jayaprakas Consulting Unavailable Monicas, Mihai F Consulting Unavailable Diana Santillan Consulting Unavailable Dariel Combs Attending Unavailable Draper, Julio Primary Care Unavailable Draper, Julio Primary Care Unavailable Zach Thomas Attending Unavailable Draper, Julio Primary Care Unavailable Livan Murry Attending Unavailable Renny, Jayaprakas Consulting Unavailable Draper, Julio Primary Care Unavailable Livan Love Attending Unavailable Ivan Livan Referring Unavailable January Perez Attending Unavailable Robel Funk Attending Unavailable Robel Funk Consulting Unavailable Cheryl Littlejohn Attending Unavailable Draper, Julio Primary Care Unavailable Draper, Julio Referring Unavailable Draper, Julio Primary Care Unavailable Mikael Swartz Attending Unavailable Charlene, Dariel Attending Unavailable Draper, Julio Primary Care Unavailable Charlene, Dariel Attending Unavailable Draper, Julio Primary Care Unavailable Draper, Julio Primary Care Unavailable Rew, Livan Referring Unavailable Rew, Livan Attending Unavailable Draper, Julio Primary Care Unavailable Rew, Livan Referring Unavailable Rew, Livan Consulting Unavailable Rew, Livan Attending Unavailable Draper, Julio Primary Care Unavailable Lorna Stout Attending Unavail able Lorna Stout Referring Unavail able Robel Funk Attending Unavailable Yomi, Yemi Admitting Unavailable Draper, Julio Primary Care Unavailable Renny, Jayaprakas Consulting Unavailable Yomi, Yemi Consulting Unavailable Kelsea Montague Attending Unavailable Draper, Julio Referring Unavailable Draper, Julio Primary Care Unavailable Draper, Julio Primary Care Unavailable Ivan, Livan Referring Unavailable Ivan, Livan Attending Unavailable Draper, Julio Primary Care Unavailable Lorna Stout Referring Unavail able Alayna Salazar Attending Unavailable Ivan, Livan Attending Unavailable Ivan, Livan Referring Unavailable Rew, Livan Consulting Unavailable Draper, Julio Primary Care Unavailable Draper, Julio Primary Care Unavailable Rew, Livan Referring Unavailable Rew, Livan Consulting Unavailable Rew, Livan Attending Unavailable Draper, Julio Primary Care Unavailable Rew, Livan Referring Unavailable Rew, Livan Consulting Unavailable Rew, Livan Attending Unavailable Mihai Izaguirre Attending Unavailable Koram, Gabby Sandee Admitting Unavailable Draper, Julio Primary Care Unavailable Koram, Gabby Sandee Attending Unavailable Renny, Jayaprakas Consulting Unavailable Solo Perry Consulting Unavailable Koram, Gabby Sandee Consulting Unavailable Littlejohn, Cheryl Attending Unavailable Draper, Julio Primary Care Unavailable Draper, Julio Referring Unavailable Littlejohn, Cheryl Attending Unavailable Draper, Julio Primary Care Unavailable Draper, Julio Referring Unavailable Draper, Julio Referring Unavailable Lorna Stout Attending Unavail able Draper, Julio Primary Care Unavailable Draper, Julio Primary Care Unavailable Draper, Julio Referring Unavailable Lorna Stout Attending Unavail able Julio Draper Primary Care Unavailable Kelsea Montague Attending Unavailable Julio Draper Referring Unavailable Julio Draper Primary Care Unavailable Alayna Salazar Attending Unavailable Julio Draper Referring Unavailable Julio Draper Primary Care Unavailable Livan Love Attending Unavailable Julio Draper Referring Unavailable Pedro, Julio Primary Care Unavailable Cheryl Littlejohn Attending Unavailable Julio Draper Referring Unavailable Allergies Allergy Classification Reported Allergen(s) Allergy Type Date of Onset Reaction(s) Facility (20 sources) Cephalexin; Translations: [CEPHALEXIN] Drug Allergy 6 Intolerance [facility] Work Phone: (8 sources) Cephalexin; Translations: [cephalexin monohydrate] Drug Allergy 2 Chest tightness [facility] (20 sources) Vancomycin; Translations: [VANCOMYCIN] Drug Allergy 4 Hives [facility] Comment on above: itching and hives af ter pre op vancomycin (1 source) Vancomycin Drug Allergy 5 [facility] Repository Medications Current Medications Medication Drug Class(es) Dates Sig (Normalized) Sig (Original) 8 hr acetaminophen 650 mg extended release oral tablet (20 sources) Start: 07-23-2024 take 1 tablet by mouth every six hours as needed for pain Acetaminophen (8 Hour Pain Reliever) 650 mg tablet extended release Active 650 mg PO EVERY 6 HOURS as needed for pain July 23, 2024 1:00am Start: 04-19-2024 End: 07-23-2024 take 2 capsules by mouth every six hours as needed for pain Acetaminophen (Tylenol) 325 mg capsule Discontinued 650 mg PO EVERY 6 HOURS as needed for pain April 19, 2024 12:00am July 23, 2024 11:40am take 2 tablets by mo [facility] every six hours as needed acetaminophen (TYLENOL) 325 mg tablet Take 650 mg by mouth every 6 hours as needed. Active Comment on above: Take 650 mg by mouth every 6 hours as needed. acetaminophen 325 mg / HYDROcodone bitartrate 5 mg oral tablet (2 sources) Opioid Agonist Start: 5 End: 5 take 1 tablet by mouth every eight hours as needed for pain HYDROcodone-acetami nophen (NORCO) 5-325 mg per tablet Indications: Acute pain of right shoulder Take 1 tablet by mouth every 8 hours as needed for pain for up to 5 days. 15 tablet 09/19/2024 09/24/2024 Active [id number] 200 actuat albuterol 0.09 mg/actuat metered dose inhaler (20 sources) beta2-Adrenergic Agonist Start: End: take 2 puff(s) by inhalation every four hours as needed for wheezing albuterol HFA (PROAIR HFA) 90 mcg/actuation inhaler Inhale 2 Puffs as instructed every 4 hours as needed for wheezing/shortness of breath. 18 g 11 06/07/2024 Active Start: 08-03-2023 End: 08-25-2023 take 2 puff(s) by inhalation every four hours as needed albuterol HFA (PROAIR HFA) 90 mcg/actuation inhaler Inhale 2 Puffs as instructed every 4 hours as needed. 0 08/03/2023 08/25/2023 Discontinued Start: 05-27-2023 End: 08-03-2023 take 2 puff(s) by inhalation every four hours as needed albuterol HFA (PROAIR HFA) 90 mcg/actuation inhaler Inhale 2 Puffs as instructed every 4 hours as needed. 36 g 2 05/27/2023 08/03/2023 Discontinued Start: 10-25-2022 End: 03-03-2023 take 2 puff(s) by inhalation every four hours as needed albuterol HFA (PROAIR HFA) 90 mcg/actuation inhaler Inhale 2 Puffs as instructed every 4 hours as needed. 36 g 10/25/2022 01/18/2023 Discontinued Start: 03-23-2021 End: 10-23-2022 take 2 puff(s) by inhalation every four hours as needed albuterol HFA (PROAIR HFA) 90 mcg/actuation inhaler Inhale 2 Puffs as instructed every 4 hours as needed. 36 g 11 03/23/2021 04/20/2022 Discontinued Start: 06-23-2020 End: 05-25-2022 albuterol (PROVENTIL) 2.5 mg /3 mL (0.083 %) nebulizer solution Indications: COPD with exacerbation (HCC) Use 3 mL via nebulizer every 6 hours as needed for Wheezing/Shortness of Breath. 1 vial contains 3 ml. 100 Vial 1 06/23/2020 05/25/2022 Discontinued Start: 08-28-2015 Albuterol Sulf ate (Ventolin Hfa) 1 INHALER inhaler Active 2 NMA INHALATION EVERY 4 HOURS NEEDED as needed for Shortness Of Breath August 28, 2015 1:00am Start: 08-28-2015 take 1 puff(s) by in halation every four hours as needed Albuterol Sulfate (Ventolin Hfa) 1 INHALER inhaler Active 2 PUFF INHALATION EVERY 4 HOURS NEEDED August 28, 2015 12:00am Start: 08-28-2015 take 1 puff(s) by in halation every four hours as needed Albuterol Sulfate (Ventolin Hfa) 1 INHALER inhaler Active 2 PUFF INHALATION EVERY 4 HOURS NEEDED August 28, 2015 1:00am Comment on above: Use 3 mL via nebuliz er every 6 hours as needed for Wheezing/Shortness of Breath. 1 vial contains 3 ml. Inhale 2 Puffs as in structed every 4 hours as needed. Inhale 2 Puffs as in structed every 4 hours as needed for wheezing/shortness of breath. albuterol 0.833 mg/ml / ipratropium bromide 0.167 mg/ml inhalation solution (20 sources) Anticholinergic, beta2-Adrenergic Agonist Start: 08-06-2024 Ipratropium-Albuterol 0.5 mg-3 mg(2.5 mg base)/3 mL solution for nebulization Active 3 mL continuous nebulization EVERY 6 HOURS NEEDED as needed for wheezing August 06, 2024 1:00am Start: 08-06-2024 Start: 09-23-2023 End: 08-02-2024 take 1 mL by inhalation every six hours as needed for wheezing Ipratropium-Albuterol 0.5 mg-3 mg(2.5 mg base)/3 mL solution for nebulization Discontinued 3 mL INHALATION EVERY 6 HOURS as needed for shortness of breath or wheezing September 23, 2023 12:00am August 02, 2024 11:57pm Start: 09-23-2023 End: 08-02-2024 Start: 05-01-2021 End: 11-14-2024 take 3 mL by inhalation every four hours as needed for wheezing ipratropium-albuterol (DUONEB) 0.5 mg-3 mg(2.5 mg base)/3 mL nebu Indications: COPD, severe (HCC) Inhale 3 mL as instructed every 4 hours as needed for wheezing/shortness of breath. 270 mL 5 11/14/2024 Active Comment on above: Inhale 3 mL as instr ucted every 4 hours as needed for wheezing/shortness of breath. alendronic acid 70 mg oral tablet (20 sources) Bisphosphonate Start: 09-10-19 take 1 tablet by mouth every week Alendronate 70 mg tablet Active 70 mg PO EVERY WEEK October 31, 2024 12:00am Start: 08-28-2021 End: 01-21-2022 take 1 tablet by mouth every week alendronate (FOSAMAX) 70 mg tablet Take 1 tablet by mouth one time a week. Take with a full glass of water, on an empty stomach; do NOT lie down for 30minutes. 12 tablet 3 08/28/2021 01/21/2022 Discontinued (Course of therapy completed) Comment on above: Take 1 tablet by obdulio th one time a week. Take with a full glass of water, on an empty stomach; do NOT lie down for 30minutes. aspirin 81 mg chewable tablet (7 sources) Platelet Aggregation Inhibitor, Nonsteroidal Anti-inflammatory Drug Start: 08-04-19 End: 09-03-19 aspirin 81 mg chewable tablet Take 1 tablet by mouth once daily. Patient should start on August 04, 2023. 0 08/04/2023 09/03/2023 Active Comment on above: Take 1 tablet by obdulio th once daily. Patient should start on August 04, 2023. B Complex-Vitamin C-Folic Acid (Galina-Jose Elias) 0.8 mg tablet (2 sources) Start: 05-22-20 take 1 tablet by mouth once daily B Complex-Vitamin C-Folic Acid (Galina-Jose Elias) 0.8 mg tablet Active 1 {tbl} PO DAILY May 22, 2024 1:00am budesonide 0.25 mg/ml inhalation suspension (7 sources) Corticosteroid Start: 08-03-19 End: 09-02-19 budesonide (PULMICORT) 0.5 mg/2 mL nebulizer solution Use 2 mL via nebulizer two times a day. 0 08/03/2023 09/02/2023 Active Comment on above: Use 2 mL via nebuliz er two times a day. busPIRone hydrochloride 10 mg oral tablet (20 sources) Start: 09-15-19 End: 03-17-20 take 1 tablet by mouth at bedtime Buspirone 10 mg tablet Active 10 mg PO AT BEDTIME September 27, 2023 12:00am Start: 08-31-2023 End: 09-13-2023 take 1 tablet by mouth twice daily busPIRone (BUSPAR) 10 mg tablet Take 1 tablet by mouth two times a day. 0 08/31/2023 09/13/2023 Discontinued Start: 06-16-2023 End: 09-27-2023 take 2 tablets by mouth twice daily Buspirone 5 mg Tablet Discontinued 10 mg PO TWICE A DAY 120 30 0 June 16, 2023 1:00am September 27, 2023 10:59am anxiety Start: 06-16-2023 Comment on above: Take 2 tablets by mo [facility] two times a day. Take 1 tablet by obdulio two times a day. calcium acetate 667 mg oral capsule (13 sources) Start: 09-18-19 End: 09-18-19 take 1 capsule by mouth three times daily Calcium Acetate(Phosphat Bind) 667 mg capsule Active 667 mg PO THREE TIMES A DAY October 31, 2024 12:00am clopidogrel 75 mg oral tablet (7 sources) P2Y12 Platelet Inhibitor Start: 08-04-19 End: 09-03-19 clopidogrel (PLAVIX) 75 mg tablet Take 1 tablet by mouth once daily. Patient should start on August 04, 2023. 0 08/04/2023 09/03/2023 Active Comment on above: Take 1 tablet by obdulio once daily. Patient should start on August 04, 2023. ergocalciferol 1.25 mg oral capsule (2 sources) Provitamin D2 Compound Start: 01-25-20 Ergocalciferol (Vitamin D2) 1,250 mcg (50,000 unit) capsule Active 1250 ug PO EVERY WEEK January 24, 2025 12:00am Start: 11-20-2024 take 1 capsule by mo uth every week ergocalciferol 50,000 unit capsule (VITAMIN D2, DRISDOL) Indications: Vitamin D deficiency Take 1 capsule by mouth one time a week. 4 capsule 5 11/20/2024 Active ferrous sulfate 325 mg delayed release oral tablet (3 sources) Start: 11-01-2024 take 1 tablet by mouth once daily Ferrous Sulfate 325 mg (65 mg iron) tablet,delayed release (DR/EC) Active 325 mg PO daily November 01, 2024 12:00am fluticasone propionate 0.05 mg/actuat metered dose nasal spray (20 sources) Corticosteroid Start: 11-15-2022 End: 11-01-2024 take 2 spray(s) by mouth once daily fluticasone (FLONASE) 50 mcg/actuation nasal spray Use 2 sprays in each nostril once daily. Rinse mouth after use. 1 each 11 11/01/2024 Active Start: 05-01-2021 End: 10-30-2022 Fluticasone Propionate 50 mc g/actuation spray,suspension Active 2 NMA INTRANASAL AT BEDTIME May 01, 2021 12:00am ALLERGIES Start: 05-01-2021 Fluticasone Pr opionate Active 2 SPRAY INTRANASAL AT BEDTIME April 30, 2021 11:00pm Start: 01-08-2021 End: 11-12-2021 take 1 spray(s) nasal route once daily fluticasone (FLONASE) 50 mcg/actuation nasal spray Indications: Post-nasal drip Use 1 [place] in each nostril once daily. 1 Bottle 5 01/08/2021 11/12/2021 Discontinued Comment on above: Use 1 [place] in each nostril once daily. Use 2 Sprays in each nostril once daily. Rinse mouth after use. 60 actuat fluticasone propionate 0.113 mg/actuat / salmeterol xinafoate 0.014 mg/actuat dry powder inhaler (1 source) Corticosteroid, beta2-Adrenergic Agonist Start: 08-12-2023 End: 09-11-2023 fluticasone propion-salmeterol (AIRDUO RESPICLICK) 113-14 mcg/actuation breath activated inhaler Inhale 1 Puff as instructed. 0 08/12/2023 09/11/2023 Active Comment on above: Inhale 1 Puff as ins tructed. Zujwgdjffui-Ogqnnulsw-Oke anter (3 sources) Start: 10-31-2024 Gipswvmuesj-Gqakpneje-Bq lanter (Trelegy Ellipta) 200-62.5-25 mcg blister with device Active 1 NMA INHALATION DAILY October 31, 2024 12:00am Start: 10-31-2024 zfiabmukxdb-aoksxeyik-bsldpd er (TRELEGY ELLIPTA) 200-62.5-25 mcg inhalation powder (20 sources) Start: 09-04-2024 take 1 puff(s) by inhalation once daily eaopjzvdbqz-ypvflnoba-xfpvrxgh (TRELEGY ELLIPTA) 200-62.5-25 mcg inhalation powder Inhale 1 Puff as instructed once daily. 60 Each 5 09/04/2024 Active 24 hr isosorbide mononitrate 60 mg extended release oral tablet (20 sources) N i t r a t e V a s o d i l a t o r Start: 09-15-2023 End: 06-15-2024 take 1 tablet by mouth once daily, then take 1 tablet by mouth every twenty-four hours Isosorbide Mononitrate 60 mg tablet extended release 24 hr Active 60 mg PO DAILY September 23, 2023 12:00am Start: 08-04-2023 End: 09-13-2023 take 1 tablet by mouth once daily, then take 1 tablet by mouth every twenty-four hours isosorbide mononitrate ER (IMDUR) 60 mg 24 hr tablet Take 1 tablet by mouth once daily. Patient should start on August 04, 2023. 0 08/04/2023 09/13/2023 Discontinued Comment on above: Take 1 tablet by obdulio th once daily. Patient should start on August 04, 2023. Take 1 tablet by obdulio th once daily. Lactobacillus combination no.8 (ADULT PROBIOTIC ORAL) (20 sources) take 1 capsule by mouth once daily Lactobacillus combination no.8 (ADULT PROBIOTIC ORAL) Take 1 capsule by mouth once daily. Active LORazepam 0.5 mg oral tablet (4 sources) Benzodiazepine Start: 08-27-19 End: 09-10-19 take 1 tablet by mouth at bedtime as needed LORazepam (ATIVAN) 0.5 mg Indications: Anxiety about health Take 1 tablet by mouth at bedtime as needed for up to 14 days. 14 tablet 0 08/27/2023 09/10/2023 Active Comment on above: Take 1 tablet by obdulio th at bedtime as needed for up to 14 days. montelukast 10 mg oral tablet (20 sources) Leukotriene Receptor Antagonist Start: 02-26-20 End: 06-15-20 take 1 tablet by mouth at bedtime Montelukast 10 MG tablet Active 10 mg PO AT BEDTIME February 25, 2018 12:00am ALLERGIES Comment on above: Take 1 tablet by obdulio th daily at bedtime. nitroglycerin 0.4 mg sublingual tablet (20 sources) Nitrate Vasodilator Start: 09-23-19 Nitroglycerin 0.4 mg tablet, sublingual Active 0.4 mg SL every 5 to 15 minutes as needed for chest pain September 23, 2023 12:00am do not exceed 3 doses per episode Comment on above: Dissolve 0.4 mg unde r the tongue every 5 minutes as needed for chest pain. OXYGEN, HOME THERAPY, (20 sources) OXYGEN, HOME THERAPY, Inhale 3 L/min as instructed as directed. 3L NC continuous, up to 4L with exertion Active OXYGEN, HOME THE RAPY, Inhale 3 L/min as instructed as directed. 3L NC continuous, up to 4L with exertion 0 Active Comment on above: Inhale 3 L/min as in structed as directed. 3L NC continuous, up to 4L with exertion pantoprazole 40 mg delayed release oral tablet (20 sources) Proton Pump Inhibitor Start: take 1 tablet by mouth once daily Pantoprazole 40 mg tablet,delayed release (DR/EC) Active 40 mg PO DAILY August 06, 2024 1:00am Start: 06-16-2023 End: 07-22-2023 take 1 tablet by mouth every twelve hours [address] (PROTONIX) 40 mg tablet Take 1 tablet by mouth every 12 hours. 06/16/2023 07/22/2023 Discontinued Start: 06-16-2023 End: 08-02-2024 Pantoprazole (Protonix) 40 m g tablet,delayed release (DR/EC) Discontinued 40 mg PO TWICE A DAY May 22, 2024 1:00am August 02, 2024 11:58pm GERD 40 mg twice daily for 3 months and then once daily. Start: 06-16-2023 End: 08-02-2024 take 1 tablet by mouth once daily pantoprazole DR (PROTONIX) 40 mg tablet Indications: Duodenal ulcer Take 1 tablet by mouth once daily. 06/15/2024 Active Comment on above: Take 1 tablet by obdulio two times a day before meals. predniSONE 10 mg oral tablet (20 sources) Start: 09-19-2024 End: 09-24-2024 take 2 tablets by mouth once daily, then take 1 tablet by mouth once daily predniSONE (DELTASONE) 20 mg tablet Indications: Acute pain of right shoulder Take 2 tablets by mouth once daily for 2 days, THEN 1 tablet once daily for 3 days. 7 tablet 09/19/2024 09/24/2024 Active Start: 08-10-2024 End: 11-13-2024 take 4 tablets by mouth once daily, then take 3 tablets by mouth once daily, then take 2 tablets by mouth once daily, then take 1 tablet by mouth once daily predniSONE (DELTASONE) 10 mg tablet Indications: Chronic obstructive pulmonary disease with acute exacerbation (HCC) TAKE BY MOUTH 4 TABLETS DAILY FOR 2 DAYS, THEN 3 TABLETS DAILY FOR 2 DAYS, THEN 2 TABLETS DAILY FOR 2 DAYS, THEN 1 TABLET DAILY FOR 2 DAYS. 20 tablet 11/13/2024 Active Start: 08-06-2024 End: 08-06-2024 Prednisone 10 mg tablet Disc ontinued mg August 06, 2024 1:00am August 06, 2024 10:13am Start: 08-06-2024 End: 08-06-2024 Start: 08-03-2024 End: 08-10-2024 take 3 tablets by mouth once daily Prednisone 20 mg tablet Discontinued 60 mg PO DAILY 12 August 03, 2024 1:00am August 10, 2024 12:45pm Start: 08-03-2024 End: 08-10-2024 Start: 07-18-2024 End: 08-01-2024 take 4 tablets by mouth once daily, then take 3 tablets by mouth once daily, then take 2 tablets by mouth once daily, then take 1 tablet by mouth once daily predniSONE (DELTASONE) 10 mg tablet Indications: Chronic obstructive pulmonary disease with acute exacerbation (HCC) TAKE BY MOUTH 4 TABLETS DAILY FOR 2 DAYS, THEN 3 TABLETS DAILY FOR 2 DAYS, THEN 2 TABLETS DAILY FOR 2 DAYS, THEN 1 TABLET DAILY FOR 2 DAYS. 20 tablet 07/18/2024 08/01/2024 Discontinued Start: 07-11-2024 End: 07-27-2024 take 2 tablets by mouth once daily Prednisone 20 mg tablet Discontinued 40 mg PO DAILY 10 5 0 July 11, 2024 1:00am July 27, 2024 3:30pm Start: 04-19-2024 End: 05-22-2024 take 1 tablet by mouth twice daily Prednisone 20 mg tablet Discontinued 20 mg PO TWICE A DAY April 19, 2024 12:00am May 22, 2024 11:15am Start: 04-16-2024 End: 05-15-2024 predniSONE (DELTASONE) 20 mg tablet Take two daily for 5 days. 10 tablet 04/16/2024 05/15/2024 Discontinued Start: 10-31-2023 End: 11-05-2023 take 1 tablet by mouth once daily predniSONE (DELTASONE) 20 mg tablet Indications: Chronic obstructive pulmonary disease with acute exacerbation (HCC) Take 1 tablet by mouth once daily for 5 days. 5 tablet 10/31/2023 11/05/2023 Start: 06-16-2023 End: 06-23-2023 take 3 tablets by mouth once daily Prednisone 10 mg tablet Discontinued 30 mg PO DAILY 9 3 June 16, 2023 1:00am June 23, 2023 1:18pm check with PCP Start: 06-16-2023 End: 06-23-2023 Start: 06-16-2023 End: 06-23-2023 Start: 12-03-2022 End: 06-23-2023 take 2 tablets by mouth once daily Prednisone 20 mg tablet Discontinued 40 mg PO DAILY 6 3 June 16, 2023 1:00am June 23, 2023 1:18pm Check with PCP Start: 12-03-2022 End: 06-23-2023 take 1 tablet by mouth once daily Prednisone 20 mg tablet Discontinued 20 mg PO DAILY 3 3 June 16, 2023 1:00am June 23, 2023 1:18pm Start: 12-03-2022 End: 06-23-2023 take 40 mg by mouth once daily Prednisone Active 40 MG PO DAILY 6 June 16, 2023 12:00am Start: 11-15-2022 End: 11-24-2022 predniSONE (DELTASONE) 10 mg tablet Take 4 tabs daily for 3 days, then 2 tabs daily for 3 days, then 1 tab daily for 3 days with food. 21 tablet 0 11/15/2022 11/24/2022 Active Start: 11-11-2022 End: 11-16-2022 take 2 tablets by mouth once daily predniSONE (DELTASONE) 20 mg tablet Take 2 tablets by mouth once daily for 5 days. 10 tablet 0 11/11/2022 11/15/2022 Discontinued (Course of therapy completed) Start: 05-01-2021 End: 05-04-2021 Start: 08-29-2015 End: 08-29-2015 take 1 tablet by mouth twice daily Prednisone 10 MG tablet Discontinued 20 mg PO TWICE A DAY 10 August 29, 2015 12:42pm August 29, 2015 12:45pm take one tablet twice daily for 5 days Start: 08-29-2015 End: 08-29-2015 take 1 tablet by mouth twice daily Prednisone Discontinued 20 MG PO TWICE A DAY 10 August 29, 2015 11:42am August 29, 2015 11:45am take one tablet twice daily for 5 days Start: 08-28-2015 End: 10-31-2024 Prednisone 10 mg tablet Disc ontinued 0 mg PO DAILY 70 28 0 August 10, 2024 1:00am October 31, 2024 9:57am Please contact the information source for Taper Schedule details. Start: 08-28-2015 End: 08-29-2015 Start: 03-07-2015 End: 03-08-2015 take 6 mg by mouth once daily Prednisone 10 MG tablet Discontinued 6 mg PO DAILY March 07, 2015 12:00am March 08, 2015 9:19am Start: 03-07-2015 End: 03-08-2015 Start: 03-07-2015 End: 03-08-2015 take 6 mg by mouth once daily Prednisone Discontinued 6 MG PO DAILY March 06, 2015 11:00pm March 08, 2015 8:19am Comment on above: Take 2 tablets by mo uth once daily for 5 days. Take 4 tabs daily fo r 3 days, then 2 tabs daily for 3 days, then 1 tab daily for 3 days with food. sucralfate 1000 mg oral tablet (20 sources) Aluminum Complex Start: 07-08-2024 End: 01-24-2025 take 1 tablet by mouth once daily as needed Sucralfate 1 gram tablet Active 1 g PO DAILY as needed for GI January 24, 2025 3:37pm Start: 06-16-2023 End: 05-01-2024 Sucralfate 1 gram Tablet Dis continued 1 g PO 0700,1100,1600 90 30 1 June 23, 2023 1:19pm May 01, 2024 11:32am GI Start: 06-16-2023 End: 07-08-2024 take 1 tablet by mouth twice daily Sucralfate 1 gram tablet Discontinued 1 g PO TWICE A DAY 60 30 1 May 01, 2024 11:32am July 08, 2024 3:18am GI Start: 06-16-2023 End: 07-08-2024 Comment on above: TAKE 1 TABLET BY OBDULIO TH THREE TIMES DAILY at 7 AM, 11 AM and 4 pm Completed/Discontinued Medications Medication Drug Class(es) Dates Sig (Normalized) Sig (Original) acetaminophen 325 mg / oxyCODONE hydrochloride 5 mg oral tablet (13 sources) Opioid Agonist Start: 06-01-2023 End: 06-16-2023 Oxycodone-Acetamino phen (Percocet) 5-325 mg tablet Discontinued 1 {tbl} PO EVERY 6 HOURS as needed for pain 14 4 0 June 01, 2023 June 16, 2023 1:14pm Right lower lobe pneumonia Pleurisy Pneumonia, unspecified organism Pleurisy Start: 06-01-2023 End: 06-16-2023 Start: 06-01-2023 End: 06-16-2023 amLODIPine 5 mg oral tablet (20 sources) Dihydropyridine Calcium Channel Vincenzo Start: 09-15-2023 End: 05-22-2024 take 1 tablet by mouth once daily Amlodipine 5 mg tablet Discontinued 5 mg PO DAILY September 23, 2023 12:00am May 22, 2024 11:14am On Hold: Hypotension in dialysis Start: 08-13-2023 End: 09-13-2023 take 1 tablet by mouth once daily in the morning amLODIPine (NORVASC) 5 mg tablet Take 5 mg by mouth every morning. 0 08/13/2023 09/13/2023 Discontinued Comment on above: Take 5 mg by mouth e very morning. Take 1 tablet by obdulio th every morning. atorvastatin 80 mg oral tablet (20 sources) HMG-CoA Reductase Inhibitor Start: End: take 1 tablet by mouth at bedtime Atorvastatin 80 mg tablet Discontinued 80 mg PO AT BEDTIME September 23, 2023 12:00am September 23, 2023 7:41pm Start: 08-25-2023 End: 03-17-2024 take 1 tablet by mouth at bedtime Atorvastatin 40 mg tablet Active 40 mg PO AT BEDTIME September 23, 2023 12:00am Start: 08-03-2023 End: 09-02-2023 take 1 tablet by mouth once daily at bedtime atorvastatin (LIPITOR) 80 mg tablet Take 1 tablet by mouth daily at bedtime. 0 08/03/2023 08/25/2023 Discontinued (Dosage adjustment) Comment on above: Take 1 tablet by obdulio th daily at bedtime. Take 1 tablet by obdulio th daily at bedtime. For cholesterol. azithromycin 250 mg oral tablet (20 sources) Macrolide Antimicrobial Start: 08-14-19 End: 01-25-20 take 1 tablet by mouth once daily Azithromycin 250 mg tablet Discontinued 250 mg PO DAILY October 31, 2024 12:00am January 24, 2025 3:35pm Start: 10-31-2023 End: 11-05-2023 azithromycin (ZITHROMAX Z-PA K) 250 mg tablet Indications: Chronic obstructive pulmonary disease with acute exacerbation (HCC) Take 2 tablets day one, then, 1 tablet daily until gone. 6 tablet 10/31/2023 11/05/2023 Start: 08-28-2015 End: 08-29-2015 Azithromycin (Zithromax Z-Pa k) 250 MG tablet Discontinued 250 mg PO DIRECTED August 28, 2015 1:00am August 29, 2015 12:42pm benzonatate 100 mg oral capsule (20 sources) Non-narcotic Antitussive Start: 08-10-2024 End: 10-31-2024 take 2 capsules by mouth three times daily as needed for cough Benzonatate 100 mg Capsule Discontinued 200 mg PO 3 TIMES DAILY NEEDED as needed for COUGH/CONGESTION 21 7 0 August 10, 2024 1:00am October 31, 2024 10:23am Budesonide-Glycop yr-Formoterol (20 sources) Corticosteroid, beta2-Adrenergic Agonist Start: 02-22-2024 End: 08-06-2024 Tzwntznqsd-Knsvasje-R ormoterol (Breztri Aerosphere) 160-9-4.8 mcg/actuation HFA aerosol inhaler Discontinued 2 NMA INHALATION TWICE A DAY February 22, 2024 12:00am August 06, 2024 6:31am Start: 02-22-2024 End: 08-06-2024 Start: 02-17-2024 End: 08-15-2024 take 2 puff(s) by inhalation twice daily zdxdvygtje-gqgcnsey-dxrfqcmanf (BREZTRI) 160-9-4.8 mcg/actuation HFA aerosol inhaler Inhale 2 Puffs as instructed two times a day. 10.7 g 5 02/17/2024 08/15/2024 Active Start: 05-25-2021 End: 01-21-2022 take 2 puff(s) by inhalation twice daily hequcxkplt-inceyumy-slvxtsiazb (BREZTRI AEROSPHERE) 160-9-4.8 mcg/actuation HFA aerosol inhaler Inhale 2 Puffs as instructed twice daily. 160 g 11 05/25/2021 01/21/2022 Discontinued (Course of therapy completed) Comment on above: Inhale 2 Puffs as in structed twice daily. cefdinir 300 mg oral capsule (10 sources) Cephalosporin Antibacterial Start: End: take 1 capsule by mouth once Cefdinir 300 mg capsule Discontinued 300 mg PO ONE TIME August 06, 2024 1:00am August 06, 2024 10:11am Start: 08-06-2024 End: 08-06-2024 Start: 07-27-2024 End: 08-02-2024 take 1 capsule by mouth once Cefdinir 300 mg capsule Discontinued 300 mg PO ONE TIME July 27, 2024 1:00am August 02, 2024 11:56pm to take on Tuesday07/29/2024 Start: 07-27-2024 End: 08-02-2024 Start: 10-14-2021 End: 10-21-2021 take 1 capsule by mouth twice daily cefdinir (OMNICEF) 300 mg capsule Take 1 capsule by mouth twice daily for 7 days. 14 capsule 0 10/14/2021 10/21/2021 Active Comment on above: Take 1 capsule by mo ut twice daily for 7 days. cholecalciferol 0.025 mg oral capsule (4 sources) Vitamin D Start: 07-23-2024 End: 01-24-2025 Cholecalciferol (Vitamin D3) (Vitamin D3) 25 mcg (1,000 unit) capsule Discontinued 25 ug PO MOWEFR July 23, 2024 1:00am January 24, 2025 3:36pm PT GIVEN VITAMIN AT DIALYSIS Start: 07-23-2024 cyclobenzaprine hydrochloride 10 mg oral tablet (2 sources) Muscle Relaxant Start: 05-15-2024 End: 06-07-2024 take 1 tablet by mouth every eight hours as needed for muscle spasms and muscle spasms cyclobenzaprine (FLEXERIL) 10 mg tablet Indications: Muscle spasm Take 1 tablet by mouth three times a day as needed for muscle spasm. 30 tablet 05/15/2024 06/07/2024 Discontinued diazePAM 2 mg oral tablet (16 sources) Benzodiazepine Start: 04-09-2024 End: 05-22-2024 take 1 tablet by mouth three times daily as needed for muscle spasms Diazepam (Valium) 2 mg tablet Discontinued 2 mg PO THREE TIMES A DAY as needed for muscle spasm 10 0 April 09, 2024 12:00am May 22, 2024 11:15am Muscle spasm End stage renal failure on dialysis Other muscle spasm End stage renal disease Dependence on renal dialysis Start: 04-09-2024 End: 05-22-2024 Start: 11-02-2021 End: 04-22-2022 take 1 tablet by mouth every eight hours diazePAM (VALIUM) 5 mg tablet TAKE 1 TABLET BY MOUTH EVERY EIGHT hours 0 11/02/2021 04/22/2022 Discontinued (Course of therapy completed) Comment on above: TAKE 1 TABLET BY OBDULIO EVERY EIGHT hours doxycycline monohydrate 100 mg oral capsule (4 sources) Tetracycline-clas s Drug Start: 08-03-2024 End: 08-10-2024 take 1 capsule by mouth twice daily Doxycycline Monohydrate 100 mg capsule Discontinued 100 mg PO TWICE A DAY 14 0 August 03, 2024 1:00am August 10, 2024 12:45pm Fluticasone-Umeclidin -Vilanter (20 sources) Anticholinergic, Corticosteroid, beta2-Adrenergic Agonist Start: 08-06-2024 End: 10-31-2024 Fluticasone-Umeclidin -Vilanter (Trelegy Ellipta) 100-62.5-25 mcg blister with device Discontinued 1 NMA INHALATION DAILY August 06, 2024 1:00am October 31, 2024 10:24am breathing Start: 08-06-2024 End: 10-31-2024 Start: 08-06-2024 Start: 05-01-2021 End: 02-22-2024 Ygigucfwwxe-Mxcytibng-Xoseka er (Trelegy Ellipta) 100-62.5-25 mcg blister with device Discontinued 1 NMA INHALATION DAILY May 01, 2021 12:00am February 22, 2024 1:49pm COPD Start: 05-01-2021 End: 02-22-2024 Start: 05-01-2021 Start: 05-01-2021 Fluticasone-Um eclidin-Vilanter (Trelegy Ellipta) 100-62.5-25 mcg blister with device Active 1 INH INHALATION DAILY April 30, 2021 11:00pm Start: 05-01-2021 Fluticasone-Um eclidin-Vilanter (Trelegy Ellipta) 100-62.5-25 mcg blister with device Active 1 INH INHALATION DAILY May 01, 2021 12:00am Start: 01-08-2021 End: 09-04-2024 take 1 puff(s) by inhalation once daily amcshfkqvrr-alrctlblj-ttabhazj (TRELEGY ELLIPTA) 100-62.5-25 mcg inhalation powder Inhale 1 Puff as instructed once daily. 05/01/2021 09/04/2024 Discontinued (Course of therapy completed) Comment on above: Inhale 1 Puff as ins tructed once daily. guaiFENesin 20 mg/ml oral solution (20 sources) Start: End: take 30 mL by mouth twice daily guaiFENesin (ROBITUSSIN) 100 mg/5 mL syrup Indications: Chronic obstructive pulmonary disease with acute exacerbation (HCC) Take 30 mL by mouth two times a day. 07/31/2024 11/13/2024 Discontinued Start: 07-27-2024 End: 10-31-2024 take 1 tablet by mouth twice daily, then take 1 tablet by mouth every twelve hours Guaifenesin (Mucus Relief Er) 1,200 mg Tablet Extended Release 12hr Discontinued 1200 mg PO TWICE A DAY 30 July 27, 2024 1:00am October 31, 2024 9:58am Start: 11-11-2022 take 2 tablets by mo ut twice daily guaiFENesin (MUCINEX) 600 mg 12 hr tablet Take 2 tablets by mouth twice daily. 60 tablet 0 11/11/2022 Active Comment on above: Take 2 tablets by mo [facility] twice daily. levoFLOXacin 500 mg oral tablet (20 sources) Quinolone Antimicrobial Start: 08-06-2024 End: 08-06-2024 Levofloxacin 500 mg tablet Discontinued mg DAILY August 06, 2024 1:00am August 06, 2024 10:12am Start: 07-11-2024 End: 07-23-2024 take 1 tablet by mouth once Levofloxacin 500 mg Tablet Discontinued 500 mg PO Q48@0600 1 1 July 11, 2024 1:00am July 23, 2024 11:35am Take one more dose 07/12 Start: 08-19-2023 End: 09-07-2023 levoFLOXacin (LEVAQUIN) 500 mg tablet Take 1 tablet by mouth every 48 hours. 3 tablet 0 08/19/2023 09/07/2023 Discontinued (Course of therapy completed) Start: 05-30-2023 End: 06-06-2023 take 1 tablet by mouth once daily levoFLOXacin (LEVAQUIN) 500 mg tablet Indications: COPD with exacerbation (HCC) Take 1 tablet by mouth once daily for 7 days. 7 tablet 0 05/30/2023 06/06/2023 Active Start: 12-03-2022 End: 06-16-2023 take 1 tablet by mouth once daily Levofloxacin 750 mg tablet Discontinued 750 mg PO DAILY 7 0 December 03, 2022 12:00am June 16, 2023 1:14pm Start: 11-11-2022 End: 11-21-2022 take 1 tablet by mouth once daily levoFLOXacin (LEVAQUIN) 500 mg tablet Take 1 tablet by mouth once daily for 10 days. 7 tablet 0 11/11/2022 11/21/2022 Active Comment on above: Take 1 tablet by obdulio th once daily for 10 days. Take 1 tablet by obdulio th once daily for 7 days. Take 1 tablet by obdulio th every 48 hours. metoprolol tartrate 25 mg oral tablet (20 sources) beta-Adrenergic Vincenzo Start: 06-16-2023 End: 05-22-2024 take 1 tablet by mouth twice daily Metoprolol Tartrate 25 mg Tablet Discontinued 25 mg PO TWICE A DAY 60 30 0 June 16, 2023 1:00am May 22, 2024 11:14am HTN On Hold: Increased SOB, COPD symptoms Start: 06-16-2023 End: 05-22-2024 take 1 tablet by mouth every twelve hours metoprolol tartrate, short acting, (LOPRESSOR) 25 mg tablet Indications: Coronary artery disease involving the [place] coronary artery of the [place] heart, unspecified whether angina present Take 1 tablet by mouth every 12 hours. 180 tablet 3 03/22/2024 04/12/2024 Discontinued (Discontinued by another Health Care Provider) Comment on above: Take 1 tablet by obdulio every 12 hours. Nebulizer Accessories misc (18 sources) Start: 11-11-2022 End: 07-12-2023 Nebulizer Accessories misc 1 Each as needed. Needs nebulizer tubing and mouthpiece 3 Each 3 11/11/2022 07/12/2023 Discontinued (Adjust Sig - Block E-Cancel) Start: 11-11-2022 Nebulizer Acce ssories misc 1 Each as needed. Needs nebulizer tubing and mouthpiece 3 Each 3 11/11/2022 Active Comment on above: 1 Each as needed. Ne eds nebulizer tubing and mouthpiece ondansetron 4 mg disintegrating oral tablet (20 sources) Serotonin-3 Receptor Antagonist Start: 08-16-19 End: 08-14-19 take 1 tablet by mouth every eight hours as needed for nausea and vomiting Ondansetron 4 mg tablet,disintegratin g Discontinued 4 mg PO Q8H as needed for nausea and vomiting April 19, 2024 12:00am August 02, 2024 11:58pm Start: 11-02-2021 End: 01-21-2022 ondansetron orally disintegr ating (ZOFRAN ODT) 4 mg disintegrating tablet EVERY 6 HOURS NEEDED 0 11/02/2021 01/21/2022 Discontinued (Course of therapy completed) Comment on above: EVERY 6 HOURS NEE DED Take 1 tablet by obdulio th every 8 hours as needed for nausea/vomiting. oxyCODONE hydrochloride 5 mg oral tablet (8 sources) Opioid Agonist Start: End: take 1 tablet by mouth every eight hours as needed for pain Oxycodone 5 mg tablet Discontinued 5 mg PO Q8H as needed for pain 12 4 0 June 05, 2024 July 23, 2024 11:35am End-stage renal disease End stage renal disease Start: 03-13-2024 End: 03-19-2024 take 1 tablet by mouth every eight hours as needed for pain Oxycodone 5 mg tablet Discontinued 5 mg PO Q8H as needed for pain 9 3 0 March 13, 2024 March 19, 2024 10:52am End-stage renal disease End stage renal disease polyethylene glycol 3350 23655 mg powder for oral solution (20 sources) Osmotic Laxative Start: 09-23-2023 End: 08-02-2024 take 17 g by mouth once daily as needed for constipation Polyethylene Glycol 3350 17 gram/dose powder Discontinued 17 g PO DAILY as needed for constipation September 23, 2023 12:00am August 02, 2024 11:59pm Comment on above: Take 17 g by mouth a s needed for constipation. Dissolve dose in 4 - 8 ounces of liquid and take as directed. primidone 50 mg oral tablet (1 source) Anti-epileptic Agent Start: 06-20-2020 End: 05-25-2021 take 1 tablet by mouth twice daily primidone (MYSOLINE) 50 mg tablet Indications: Essential tremor Take 1 tablet by mouth twice daily. 60 tablet 5 06/20/2020 05/25/2021 Discontinued (Course of therapy completed) sevelamer carbonate 800 mg powder for oral suspension (18 sources) Phosphate Binder Start: 09-23-2023 End: 12-08-2023 take 0.8 g by mouth three times daily at mealtime Sevelamer Carbonate 0.8 gram powder in packet Discontinued 0.8 g PO THREE TIMES A DAY September 23, 2023 12:00am December 08, 2023 1:43pm must administer with a meal/food Start: 08-03-2023 End: 09-02-2023 take 0.8 g by mouth three times daily at mealtime sevelamer carbonate (RENVELA) 0.8 gram pwpk Take 0.8 g by mouth three times a day with meals. 0 08/03/2023 09/02/2023 Active Comment on above: Take 0.8 g by mouth three times a day with meals. Sod Sulf-Pot Chloride-Mag Sulf (4 sources) Start: 12-08-2023 End: 02-22-2024 take 1.479 tablets by mouth once Sod Sulf-Pot Chloride-Mag Sulf (Sutab) 1.479-0.188- 0.225 gram tablet Discontinued 0 PO per package directions 24 0 December 08, 2023 12:00am February 22, 2024 1:48pm PO PER PKG DIR for colonoscopy prep Start: 12-08-2023 End: 02-22-2024 traMADol hydrochloride 50 mg oral tablet (4 sources) Opioid Agonist Start: 09-17-2024 End: 10-31-2024 take 1 tablet by mouth every six hours as needed for pain Tramadol 50 mg tablet Discontinued 50 mg PO EVERY 6 HOURS as needed for pain 12 0 September 17, 2024 12:00am October 31, 2024 9:56am Acute pain of right shoulder Pain in right shoulder (11 sources) Start: 07-27-2024 End: 10-31-2024 Start: 07-27-2024 Start: 05-22-2024 Start: 04-19-2024 End: 05-22-2024 Start: 08-28-2015 Problems Active Problems Problem Classification Problem Date Documented Da te Episodic/Chronic Acute and unspecified renal failure (20 sources) Acute renal failure syndrome; Translations: [Acute kidney failure, unspecified] Onset: 4 Resolved: 4 07-08-2023 Episodic Acute myocardial infarction (20 sources) Myocardial infarction; Translations: [Non-ST elevation (NSTEMI) myocardial infarction] Onset: 4 07-23-2023 Chronic Allergic reactions (20 sources) Environmental allergy; Translations: [Other allergy status, other than to drugs and biological substances] 06-29-2021 Episodic Cardiac dysrhythmias (20 sources) Atrial fibrillation; Translations: [Unspecified atrial fibrillation] Onset: 3 07-07-2023 Chronic Cardiac dysrhythmias (17 sources) Sinus tachycardia; Translations: [Tachycardia, unspecified] 11-30-2022 Episodic Chronic kidney disease (20 sources) End-stage renal disease; Translations: [End stage renal disease] Onset: 4 08-02-2023 Chronic Chronic obstructive pulmonary disease and bronchiectasis (20 sources) Asthma-chronic obstructive pulmonary disease overlap syndrome; Translations: [Chronic obstructive pulmonary disease, unspecified] Onset: 3 Resolved: 4 02-15-2019 Chronic Comment on above: INHALER USED Complication of device; implant or graft (20 sources) Complication associated with dialysis catheter; Translations: [Breakdown (mechanical) of vascular dialysis catheter, initial encounter] Onset: 4 Resolved: 4 08-19-2023 Episodic Conditions associated with dizziness or vertigo (17 sources) Vertigo; Translations: [Dizziness and giddiness] Episodic Coronary atherosclerosis and other heart disease (20 sources) Coronary arteriosclerosis; Translations: [Atherosclerotic heart disease of the [place] coronary artery without angina pectoris] Onset: 4 08-19-2023 Chronic Comment on above: Minimal to mild RCA disease noted on coronary angiography at [place] Deficiency and other anemia (6 sources) Anemia of chronic disease; Translations: [Anemia in other chronic diseases classified elsewhere] 08-04-2024 Chronic Deficiency and other anemia (1 source) Anemia in other chronic diseases classified elsewhere; Translations: [Anemia in other chronic diseases classified elsewhere] Onset: 5 Chronic Deficiency and other anemia (20 sources) Anemia; Translations: [Anemia, unspecified] Onset: 3 06-20-2023 Episodic Deficiency and other anemia (8 sources) Anemia, unspecified; Translations: [Anemia, unspecified] 06-20-2023 Episodic Diabetes mellitus without complication (17 sources) Hyperglycemia; Translations: [Hyperglycemia, unspecified] 11-30-2022 Episodic Diseases of white blood cells (20 sources) Leukocytosis; Translations: [Elevated white blood cell count, unspecified] Onset: 4 11-30-2022 Chronic Disorders of lipid metabolism (20 sources) Hyperlipidemia; Translations: [Hyperlipidemia, unspecified] Onset: 9 02-15-2019 Chronic Diverticulosis and diverticulitis (4 sources) Diverticulosis of colon; Translations: [Diverticulosis of large intestine without perforation or abscess without bleeding] 05-01-2024 Chronic Essential hypertension (20 sources) Essential hypertension; Translations: [Essential (primary) hypertension] Onset: 1 Resolved: 6 08-02-2023 Chronic Fever of unknown origin (17 sources) Fever with chills; Translations: [Fever, unspecified] 11-30-2022 Episodic Gastroduodenal ulcer (except hemorrhage) (20 sources) Ulcer of duodenum; Translations: [Duodenal ulcer, unspecified as acute or chronic, without hemorrhage or perforation] Onset: 3 07-20-2023 Chronic Gastrointestinal hemorrhage (20 sources) Hemorrhage of digestive system; Translations: [Chronic or unspecified gastrojejunal ulcer with hemorrhage] Onset: 4 Resolved: 4 06-20-2023 Chronic Gastrointestinal hemorrhage (20 sources) Gastrointestinal hemorrhage; Translations: [Gastrointestinal hemorrhage, unspecified] Onset: 0 Resolved: 4 06-17-2023 Episodic Immunizations and screening for infectious disease (2 sources) Needs influenza immunization; Translations: [Encounter for immunization] Episodic Nutritional deficiencies (20 sources) Undernutrition; Translations: [Mild protein-calorie malnutrition] Onset: 4 08-01-2023 Chronic Osteoporosis (20 sources) Senile osteoporosis; Translations: [Age-related osteoporosis without current pathological fracture] Onset: 2 08-28-2021 Chronic Other circulatory disease (6 sources) Arteriovenous fistula; Translations: [Arteriovenous fistula, acquired] Onset: 4 04-11-2024 Chronic Other circulatory disease (1 source) Arteriovenous fistula, acquired; Translations: [Arteriovenous fistula, acquired] Onset: 5 Chronic Other circulatory disease (7 sources) Elevated blood-pressure reading without diagnosis of hypertension; Translations: [Elevated blood-pressure reading, without diagnosis of hypertension] 07-07-2023 Episodic Other circulatory disease (3 sources) Elevated blood-pressure reading, without diagnosis of hypertension; Translations: [Elevated blood pressure reading without diagnosis of hypertension] 07-07-2023 Episodic Other circulatory disease (5 sources) H/O: atrial fibrillation; Translations: [Personal history of other diseases of the circulatory system] 07-23-2024 Episodic Other circulatory disease (1 source) Personal history of other diseases of the circulatory system; Translations: [Personal history of other diseases of the circulatory system] Onset: 5 Episodic Other connective tissue disease (6 sources) Spasm; Translations: [Other muscle spasm] 04-12-2024 Episodic Other ear and sense organ disorders (2 sources) Impacted cerumen of bilateral ears; Translations: [Impacted cerumen, bilateral] Episodic Other gastrointestinal disorders (20 sources) History of gastrointestinal bleed; Translations: [Personal history of other diseases of the digestive system] Onset: 4 Resolved: 4 07-20-2023 Episodic Other gastrointestinal disorders (6 sources) Acquired arteriovenous malformation; Translations: [Angiodysplasia of colon without hemorrhage] 02-09-2024 Episodic Other hereditary and degenerative nervous system conditions (20 sources) Essential tremor; Translations: [Essential tremor] Onset: 8 08-29-2017 Chronic Other lower respiratory disease (3 sources) Cough; Translations: [Cough] Episodic Other lower respiratory disease (6 sources) Dyspnea; Translations: [Shortness of breath] Episodic Other lower respiratory disease (20 sources) Multiple nodules of lung; Translations: [Other nonspecific abnormal finding of lung field] Episodic Other lower respiratory disease (20 sources) Nodule of lung; Translations: [Solitary pulmonary nodule] Onset: 1 Episodic Other lower respiratory disease (2 sources) Abnormal breath sounds; Translations: [Other abnormalities of breathing] Episodic Other lower respiratory disease (15 sources) Dyspnea on exertion; Translations: [Other forms of dyspnea] 11-30-2022 Episodic Other lower respiratory disease (5 sources) Other forms of dyspnea; Translations: [Other respiratory abnormalities] 11-30-2022 Episodic Other lower respiratory disease (11 sources) Other nonspecific abnormal finding of lung field; Translations: [Other nonspecific abnormal finding of lung field] Onset: 4 06-02-2023 Episodic Other lower respiratory disease (20 sources) History of chronic obstructive airway disease; Translations: [Personal history of other diseases of the respiratory system] Onset: 4 Resolved: 4 07-20-2023 Episodic Other lower respiratory disease (1 source) H/O: pneumonia; Translations: [Personal history of pneumonia (recurrent)] 10-08-2024 Episodic Other nervous system disorders (16 sources) Tremor; Translations: [Tremor, unspecified] 08-28-2015 Episodic Other screening for suspected conditions (not mental disorders or infectious disease) (20 sources) Patient encounter status; Translations: [Encounter for screening mammogram for malignant neoplasm of breast] Onset: 4 Resolved: 4 Episodic Other skin disorders (1 source) Nail deformity; Translations: [Other nail disorders] Episodic Other upper respiratory disease (20 sources) Acute bronchospasm; Translations: [Acute bronchospasm] 11-30-2022 Episodic Other upper respiratory disease (5 sources) Acute bronchospasm; Translations: [Acute bronchospasm] 11-30-2022 Episodic Other upper respiratory infections (1 source) Posterior rhinorrhea; Translations: [Postnasal drip] Episodic Peripheral and visceral atherosclerosis (1 source) Atherosclerosis of the [place] arteries of right leg with ulceration of unspecified site; Translations: [Atherosclerosis of the [place] arteries of right leg with ulceration of unspecified site] Onset: 5 Chronic Pleurisy; pneumothorax; pulmonary collapse (20 sources) Pleurisy; Translations: [Pleurisy] Onset: 4 Resolved: 4 06-01-2023 Episodic Residual codes; unclassified (16 sources) Peripheral edema; Translations: [Edema, unspecified] 02-26-2018 Episodic Residual codes; unclassified (16 sources) Tobacco use and exposure - finding; Translations: [Tobacco use] 04-22-2020 Episodic Comment on above: FORMER Residual codes; unclassified (20 sources) Other specified health status; Translations: [Failure of outpatient treatment] 06-02-2023 Episodic Residual codes; unclassified (6 sources) H/O: Disorder; Translations: [Personal history of other specified conditions] 07-07-2023 Episodic Residual codes; unclassified (2 sources) Personal history of other specified conditions; Translations: [Personal history of other specified diseases] 07-09-2023 Episodic Respiratory failure; insufficiency; arrest (adult) (20 sources) Chronic hypoxemic respiratory failure; Translations: [Chronic respiratory failure with hypoxia] Onset: 3 Resolved: Chronic Syncope (16 sources) Syncope; Translations: [Syncope and collapse] 06-20-2023 Episodic Unclassified (1 source) Acute pain of right shoulder 09-20-2024 Unclassified (1 source) Ground glass opacity present on imaging of lung 11-16-2024 Viral infection (5 sources) Disease caused by 2019-nCoV; Translations: [COVID-19] Episodic Past or Other Problems Problem Classification Problem Date Documented Da te Episodic/Chronic Acute bronchitis (8 sources) Respiratory syncytial virus bronchitis; Translations: [Acute bronchitis due to respiratory syncytial virus] Onset: 07-17-2024 07-08-2024 Episodic Asthma (20 sources) Asthma; Translations: [Unspecified asthma, uncomplicated] Resolved: 02-15-2019 02-15-2019 Chronic Biliary tract disease (20 sources) Disorder of gallbladder; Translations: [Other specified diseases of gallbladder] Onset: 12-11-2007 Resolved: 07-20-2012 07-20-2012 Episodic Coagulation and hemorrhagic disorders (20 sources) Blood coagulation disorder; Translations: [Coagulation defect, unspecified] Onset: 08-25-2023 Resolved: 04-12-2024 08-25-2023 Chronic Fluid and electrolyte disorders (20 sources) Hypervolemia; Translations: [Fluid overload, unspecified] Onset: 08-17-2023 Resolved: 04-12-2024 08-17-2023 Episodic Gastritis and duodenitis (20 sources) Gastritis; Translations: [Gastritis, unspecified, without bleeding] Onset: 02-09-2010 Resolved: 07-15-2015 06-29-2021 Episodic Headache; including migraine (20 sources) Migraine; Translations: [Migraine, unspecified, not intractable, without status migrainosus] Resolved: 07-15-2015 06-29-2021 Chronic Miscellaneous mental health disorders (20 sources) Anxiety about body function or health; Translations: [Other symptoms and signs involving emotional state] Onset: 08-27-2023 08-27-2023 Episodic Nonspecific chest pain (9 sources) Left sided chest pain; Translations: [Chest pain, unspecified] Onset: 04-27-2024 03-27-2024 Episodic Other acquired deformities (20 sources) Scoliosis deformity of spine; Translations: [Scoliosis, unspecified] Resolved: 02-10-2017 02-10-2017 Chronic Other aftercare (1 source) Encounter for adjustment and management of vascular access device; Translations: [Encounter for adjustment and management of vascular access device] Onset: 09-20-2024 Episodic Other and unspecified benign neoplasm (20 sources) History of polyp of colon; Translations: [Personal history of colonic polyps] Resolved: 07-15-2015 06-29-2021 Episodic Other circulatory disease (20 sources) Elevated blood pressure; Translations: [Elevated blood-pressure reading, without diagnosis of hypertension] Onset: 05-03-2022 Resolved: 08-25-2023 Episodic Other connective tissue disease (1 source) Other muscle spasm; Translations: [Other muscle spasm] Onset: 04-30-2024 Episodic Other gastrointestinal disorders (20 sources) Irritable bowel syndrome; Translations: [Irritable bowel syndrome without diarrhea] Resolved: 07-15-2015 07-15-2015 Chronic Other gastrointestinal disorders (20 sources) Dysphagia; Translations: [Dysphagia, unspecified] Onset: 07-09-2023 07-09-2023 Episodic Other gastrointestinal disorders (20 sources) Antibiotic-associated diarrhea; Translations: [Toxic gastroenteritis and colitis] Onset: 07-14-2023 Resolved: 04-12-2024 07-14-2023 Episodic Other gastrointestinal disorders (1 source) Angiodysplasia of colon without hemorrhage; Translations: [AVM (arteriovenous malformation) of small bowel, acquired] Onset: 02-20-2024 Episodic Other lower respiratory disease (20 sources) Hypoxemia; Translations: [Hypoxemia] Onset: 05-01-2021 Resolved: 08-25-2023 Episodic Other lower respiratory disease (2 sources) Shortness of breath; Translations: [Shortness of breath] Onset: 08-17-2023 Episodic Other lower respiratory disease (1 source) Solitary pulmonary nodule; Translations: [Solitary pulmonary nodule] Onset: 08-10-2024 Episodic Other non-traumatic joint disorders (7 sources) Pain in right shoulder; Translations: [Pain in joint, shoulder region] Onset: 09-17-2024 09-19-2024 Episodic Other nutritional; endocrine; and metabolic disorders (20 sources) Weight loss; Translations: [Abnormal weight loss] Onset: 02-09-2010 Resolved: 07-20-2012 07-20-2012 Episodic Other nutritional; endocrine; and metabolic disorders (12 sources) Weight decreased; Translations: [Abnormal weight loss] Onset: 02-09-2010 Resolved: 07-20-2012 07-20-2012 Episodic Pneumonia (except that caused by tuberculosis or sexually transmitted disease) (20 sources) Community acquired pneumonia; Translations: [Pneumonia, unspecified organism] Onset: 06-30-2023 Resolved: 04-12-2024 11-30-2022 Episodic Respiratory failure; insufficiency; arrest (adult) (20 sources) Acute respiratory failure; Translations: [Acute respiratory failure with hypoxia] Onset: 07-24-2023 Resolved: 08-25-2023 07-24-2023 Episodic Screening and history of mental health and substance abuse codes (20 sources) Ex-smoker; Translations: [Personal history of nicotine dependence] Onset: 07-19-2023 Episodic Septicemia (except in labor) (20 sources) Septic shock; Translations: [Sepsis, unspecified organism] Onset: 07-11-2023 Resolved: 08-25-2023 07-11-2023 Episodic Spondylosis; intervertebral disc disorders; other back problems (20 sources) Degeneration of cervical intervertebral disc; Translations: [Other cervical disc degeneration, unspecified cervical region] Onset: 08-15-2015 Resolved: 02-10-2017 02-10-2017 Chronic Spondylosis; intervertebral disc disorders; other back problems (20 sources) Acute low back pain; Translations: [Acute right-sided low back pain without sciatica] Onset: 08-15-2015 Resolved: 02-10-2017 Episodic Substance-related disorders (20 sources) Tobacco user; Translations: [Nicotine dependence, unspecified, uncomplicated] Onset: 11-02-2007 Resolved: 02-10-2017 02-10-2017 Chronic Unclassified (1 source) Patient encounter status 08-14-2024 Results Test Name Value Interpretation Reference Range Facility Cardiology Visit Reporton Cardiology Visit Report Normal [facility] Operative Reporton Operative Report Normal [facility] CNPNon 11-29-2024 [facility] Telephone (INTMWS) SNEHA CARDENAS ([id number]) 1955 F Date Time Provider Department 11/29/24 MAGALI NIEVES During your visit today, we recorded the following information about you: Janie Yanes LPN 11/29/2024 10:31 AM Signed Patient is wanting results from [facility]. Patient has an O2 monitor and Jean-Pierre Vitale recommend patient call office back to find out results. Patient stated that she had monitor on x 1 month ago. Please review and advise further. FREDY Mauro Kathleen, LPN 11/29/2024 11:41 AM Signed No results received and no order placed for overnight oximetry from this office. Called Sunil at [facility]. 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 She will send the results for review. FREDY Mcdaniels Kathleen, LPN 11/29/2024 3:07 PM Signed Results scanned to [facility]. Patient notified results within normal limits. Abimbola Lewis LPN Allergies As of Date: 11/29/2024 Noted Allergy Reaction KEFLEX (CEPHALEXIN) 10/04/2005 5 - Intolerance Comments: Tachycardia, palpitations. VANCOMYCIN 06/07/2024 4 - Hives Date Reviewed: 11/14/2024 Reviewed by: Jean-Pierre Vitale, WHITNEY.[employer]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 - Fully Assessed Reason for Visit: Patient Question [6758] Cmt: O2 monitor results Prescriptions as of 11/29/2024 - ergocalciferol 50,000 unit capsule (VITAMIN D2, DRISDOL) Take 1 capsule by mouth one time a week. - ipratropium-albuterol (DUONEB) 0.5 mg-3 mg(2.5 mg base)/3 mL nebu Inhale 3 mL as instructed every 4 hours as needed for wheezing/shortness of breath. - predniSONE (DELTASONE) 10 mg tablet TAKE BY MOUTH 4 TABLETS DAILY FOR 2 DAYS, THEN 3 TABLETS DAILY FOR 2 DAYS, THEN 2 TABLETS DAILY FOR 2 DAYS, THEN 1 TABLET DAILY FOR 2 DAYS. - fluticasone (FLONASE) 50 mcg/actuation nasal spray Use 2 sprays in each nostril once daily. Rinse mouth after use. - calcium acetate,phosphat bind, (PHOSLO) 667 mg capsule Take 667 mg by mouth three times a day. - alendronate (FOSAMAX) 70 mg tablet Take 1 tablet by mouth one time a week. in the AM with glass of water on empty stomach. Do not take anything else by mouth or lie down for 30 min - Lactobacillus combination no.8 (ADULT PROBIOTIC ORAL) Take 1 capsule by mouth once daily. - fluticasone-umeclidin- vilanter (TRELEGY ELLIPTA) 200-62.5-25 mcg inhalation powder Inhale 1 Puff as instructed once daily. - ondansetron orally disintegrating (ZOFRAN ODT) 4 mg disintegrating tablet Take 1 tablet by mouth every 8 hours as needed for nausea/vomiting. - benzonatate (TESSALON PERLE) 100 mg capsule Take 2 capsules by mouth three times a day as needed for cough. - isosorbide mononitrate ER (IMDUR) 60 mg 24 hr tablet Take 1 tablet by mouth once daily. - montelukast (SINGULAIR) 10 mg tablet Take 1 tablet by mouth daily at bedtime. - sucralfate (CARAFATE) 1 gram tablet Take 1 tablet by mouth two times a day. - pantoprazole DR (PROTONIX) 40 mg tablet Take 1 tablet by mouth once daily. - albuterol HFA (PROAIR HFA) 90 mcg/actuation inhaler Inhale 2 Puffs as instructed every 4 hours as needed for wheezing/shortness of breath. - atorvastatin (LIPITOR) 40 mg tablet Take 1 tablet by mouth daily at bedtime. For cholesterol. - busPIRone (BUSPAR) 10 mg tablet Take 1 tablet by mouth two times a day. - OXYGEN, HOME THERAPY, Inhale 3 L/min as instructed as directed. 3L NC continuous, up to 4L with exertion - acetaminophen (TYLENOL) 325 mg tablet Take 650 mg by mouth every 6 hours as needed. - nitroglycerin sublingual (NITROSTAT) 0.4 mg SL tablet Dissolve 0.4 mg under the tongue every 5 minutes as needed for chest pain. - polyethylene glycol 3350 (MIRALAX) 17 gram/dose powder Take 17 g by mouth as needed for constipation. Dissolve dose in 4 - 8 ounces of liquid and take as directed. Problem List As Of Date 11/29/2024 Noted Resolved Tobacco use disorder [F17.200] 11/02/2007 02/10/2017 Essential tremor [G25.0] 11/02/2007 Other specified disorder of gallbladder [K82.8] 12/11/2007 07/20/2012 Unspecified gastritis and gastroduodenitis with*02/09/2010 07/15/2015 Blood in stool [K92.1] 02/09/2010 07/20/2012 Loss of weight [R63.4] 02/09/2010 07/20/2012 Upper GI bleed [K92.2] 02/09/2010 04/12/2024 Acute gastritis without mention of hemorrhage [*02/09/2010 07/20/2012 Essential hypertension, benign [I10] 05/17/2011 07/15/2015 Migraine headache [G43.909] 07/15/2015 Irritable bowel syndrome [K58.9] 07/15/2015 Scoliosis [M41.9] 02/10/2017 Environmental allergies [Z91.09] History of colon polyps [Z86.0100] 07/15/2015 Chronic obstructive pulmonary disease (HCC) [J4*07/25/2012 Cervical disc disorder with radiculopathy [M50.*08/15/2015 02/10/2017 DDD (degenerative disc disease), cervical [M50.*08/15/2015 02/10/2017 Primary hypertension [I10] 06/03/2016 Asthma [J45.909] 02/15/2019 Hyperlipidemia [E78.5] 02/15/2019 (more content not included)... Normal [facility] Yudith 11-16-2024 MARI[facility] Telephone (PULWS) CONORSNEHA Reji ([id number]) 1955 F Date Time Provider Department 11/16/24 MAGALI NIEVES PULMWS During your visit today, we recorded the following information about you: Magali Nieves MD 11/16/2024 12:19 PM Signed Spoke to Sneha regarding chest CT. Most nodules stable, one in MELLISA slightly smaller. 2 cm GGO stable. Radiologist believes GGO is area of atelectasis based no side view showing it is flat. Patient at risk for cancer but not an operative candidate. Repeat imaging Allergies As of Date: 11/16/2024 Noted Allergy Reaction KEFLEX (CEPHALEXIN) 10/04/2005 5 - Intolerance Comments: Tachycardia, palpitations. VANCOMYCIN 06/07/2024 4 - Hives Date Reviewed: 11/14/2024 Reviewed by: Jean-Pierre Vitale APRN.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 - Fully Assessed Reason for Visit: Results [95] Primary Visit Diagnosis:Ground glass opacity present on imaging of lung [R91.8] Other Visit Diagnoses:Lung nodules [R91.8] Former smoker [Z87.891] [id number] Order #: [id number] FUTURE Prescriptions as of 11/16/2024 - ipratropium-albuterol (DUONEB) 0.5 mg-3 mg(2.5 mg base)/3 mL nebu Inhale 3 mL as instructed every 4 hours as needed for wheezing/shortness of breath. - predniSONE (DELTASONE) 10 mg tablet TAKE BY MOUTH 4 TABLETS DAILY FOR 2 DAYS, THEN 3 TABLETS DAILY FOR 2 DAYS, THEN 2 TABLETS DAILY FOR 2 DAYS, THEN 1 TABLET DAILY FOR 2 DAYS. - fluticasone (FLONASE) 50 mcg/actuation nasal spray Use 2 sprays in each nostril once daily. Rinse mouth after use. - calcium acetate,phosphat bind, (PHOSLO) 667 mg capsule Take 667 mg by mouth three times a day. - alendronate (FOSAMAX) 70 mg tablet Take 1 tablet by mouth one time a week. in the AM with glass of water on empty stomach. Do not take anything else by mouth or lie down for 30 min - Lactobacillus combination no.8 (ADULT PROBIOTIC ORAL) Take 1 capsule by mouth once daily. - fluticasone-umeclidin- vilanter (TRELEGY ELLIPTA) 200-62.5-25 mcg inhalation powder Inhale 1 Puff as instructed once daily. - ondansetron orally disintegrating (ZOFRAN ODT) 4 mg disintegrating tablet Take 1 tablet by mouth every 8 hours as needed for nausea/vomiting. - benzonatate (TESSALON PERLE) 100 mg capsule Take 2 capsules by mouth three times a day as needed for cough. - isosorbide mononitrate ER (IMDUR) 60 mg 24 hr tablet Take 1 tablet by mouth once daily. - montelukast (SINGULAIR) 10 mg tablet Take 1 tablet by mouth daily at bedtime. - sucralfate (CARAFATE) 1 gram tablet Take 1 tablet by mouth two times a day. - pantoprazole DR (PROTONIX) 40 mg tablet Take 1 tablet by mouth once daily. - albuterol HFA (PROAIR HFA) 90 mcg/actuation inhaler Inhale 2 Puffs as instructed every 4 hours as needed for wheezing/shortness of breath. - atorvastatin (LIPITOR) 40 mg tablet Take 1 tablet by mouth daily at bedtime. For cholesterol. - busPIRone (BUSPAR) 10 mg tablet Take 1 tablet by mouth two times a day. - OXYGEN, HOME THERAPY, Inhale 3 L/min as instructed as directed. 3L NC continuous, up to 4L with exertion - acetaminophen (TYLENOL) 325 mg tablet Take 650 mg by mouth every 6 hours as needed. - nitroglycerin sublingual (NITROSTAT) 0.4 mg SL tablet Dissolve 0.4 mg under the tongue every 5 minutes as needed for chest pain. - polyethylene glycol 3350 (MIRALAX) 17 gram/dose powder Take 17 g by mouth as needed for constipation. Dissolve dose in 4 - 8 ounces of liquid and take as directed. Problem List As Of Date 11/16/2024 Noted Resolved Tobacco use disorder [F17.200] 11/02/2007 02/10/2017 Essential tremor [G25.0] 11/02/2007 Other specified disorder of gallbladder [K82.8] 12/11/2007 07/20/2012 Unspecified gastritis and gastroduodenitis with*02/09/2010 07/15/2015 Blood in stool [K92.1] 02/09/2010 07/20/2012 Loss of weight [R63.4] 02/09/2010 07/20/2012 Upper GI bleed [K92.2] 02/09/2010 04/12/2024 Acute gastritis without mention of hemorrhage [*02/09/2010 07/20/2012 Essential hypertension, benign [I10] 05/17/2011 07/15/2015 Migraine headache [G43.909] 07/15/2015 Irritable bowel syndrome [K58.9] 07/15/2015 Scoliosis [M41.9] 02/10/2017 Environmental allergies [Z91.09] History of colon polyps [Z86.0100] 07/15/2015 Chronic obstructive pulmonary disease (HCC) [J4*07/25/2012 Cervical disc disorder with radiculopathy [M50.*08/15/2015 02/10/2017 DDD (degenerative disc disease), cervical [M50.*08/15/2015 02/10/2017 Primary hypertension [I10] 06/03/2016 Asthma [J45.909] 02/15/2019 Hyperlipidemia [E78.5] 02/15/2019 Age-related osteoporosis without current pathol*08/28/2021 Hypoxemia [R09.02] 05/01/2021 08/25/2023 Lung nodule [R91.1] 05/12/2021 Elevated blood pressure reading [R03.0] 05/03/2022 08/25/2023 Chronic respiratory failure with hypoxia (HCC) *11/05/2022 Duodenal ulcer [K26.9] 06/30/2023 Paroxysmal atrial fibrillation (HCC (more content not included)... Normal [facility] CNOVon 11-14-2024 CNOV Office Visit (PULMWS ) SNEHA CARDENAS ([id number]) 1955 F Date Time Provider Department 11/14/24 3:00 PM JEAN-PIERRE VITALE PULMIKEY During your visit today, we recorded the following information about you: Pulse Respiration Blood pressure Weight 89/minute 17/minute 120/60 61.6 kg Jean-Pierre Vitale APRN.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 11/14/2024 3:48 PM Signed Pulmonary Medicine Patients name: Sneha Cardenas PCP: Julio Draper MD CC: follow-up HPI: Sneha Cardenas is a 69 year old female former 20 pack year smoker with PMH significant for tremors, HTN, COVID PNA 2020, chronic hypoxemic respiratory failure, AF (not anticoagulated due to GIB), severe COPD/emphysema, multiple nodules on chest imaging and 2 cm RUL GGO, history notable for complicated parapneumonic effusion requiring chest tube, ESRD requiring dialysis, chronic small Rt pleural effusion. Current therapy with Trelegy Ellipta and PRN Albuterol. She presents today for follow-up. RONALD 09/2024 following multiple hospitalizations. Had just been started on daily Azithroymycin by her PCP a month prior. Trelegy dose was increased to 200. She was seen by her PCP on 10/08 d/t difficulty breathing and treated with Prednisone. Overall, she reports feeling an improvement in respiratory symptoms since starting high dose Trelegy. Denies any further hospitalizations/ED visits related to her breathing. She has been heaving heart rhythm issues and is scheduled to have a heart monitor placed. Established with [facility]. She also had an updated chest CT 11/06 d/t GGO and lung nodules with stable findings. Today, she reports intermittent cough related to allergies, uses Singulair and Flonase which has been helpful. No wheezing/chest tightness. No dyspnea at rest. Exertional dyspnea has not changed and she continues to note with minimal exertion. No fevers, chills, or night sweats. Has gained some weight back that she previously lost d/t hospitalizations. DME: [employer] 3L at rest and nocturnal 4L with exertion PAST MEDICAL HISTORY Diagnosis Date Age-related osteoporosis without current pathological fracture 08/28/2021 EARNEST (acute kidney injury) (HCC) EARNEST (acute kidney injury) (HCC) Anemia requiring transfusions 06/15/2023 Antibiotic-associated diarrhea 07/14/2023 Asthma Benign essential tremor Chronic obstructive pulmonary disease ([facility]) 07/25/2012 Chronic respiratory failure with hypoxia ([facility]) 11/05/2022 Coagulation defect, unspecified ([facility]) 08/25/2023 COPD (chronic obstructive pulmonary disease) ([facility]) 07/25/2012 FEV1 0.84L (32%), 10/18/2014 Coronary artery disease 08/19/2023 DDD (degenerative disc disease), cervical 08/15/2015 Empyema ([facility]) 07/09/2023 Environmental allergies Wheezes with hay or dust ESRD (end stage renal disease) ([facility]) Essential and other specified forms of tremor 11/02/2007 Benign essential -- started primidone 06/03/09, Dr. Nguyễn Essential tremor 11/02/2007 Benign essential -- started primidone 06/03/09, Dr. Nguyễn Gastrointestinal hemorrhage associated with peptic ulcer 08/02/2023 Hemodialysis catheter malfunction ([facility]) 08/19/2023 History of colon polyps 2009 Tubular adenoma. Hypertension Hypoxemia 05/01/2021 Post Covid pneumonia. Irritable bowel syndrome Lung nodule Migraine headache Improved with primidone Multiple duodenal ulcers 06/30/2023 NSTEMI (non-ST elevated myocardial infarction) ([facility]) 07/20/2023 Parapneumonic effusion Pneumonia due to COVID-19 virus 05/01/2021 Pneumonia due to infectious organism 06/30/2023 Pulmonary emphysema ([facility]) 07/19/2023 Scoliosis Shock, septic ([facility]) 07/11/2023 Snoring Tobacco use disorder Quit 03/04/2015. Unspecified gastritis and gastroduodenitis without mention of hemorrhage 02/09/2010 Small ulcer on EGD 2009 Upper GI bleed 02/09/2010 Allergies: Keflex [Cephalexin] Intolerance Comment:Tachycardia, palpitations. Vancomycin Hives Medication List Accurate as of November 13, 2024 9:16 PM. If you have any questions, ask your nurse or doctor. CONTINUE taking these medications acetaminophen 325 mg tablet Commonly known as: TYLENOL ADULT PROBIOTIC ORAL albuterol HFA 90 mcg/actuation inhaler Commonly known as: PROAIR HFA Inhale 2 Puffs as instructed every 4 hours as needed for wheezing/shortness of breath. alendronate 70 mg tablet Commonly known as: FOSAMAX Take 1 tablet by mouth one time a week. in the AM with glass of water on empty stomach. Do not take anything else by mouth or lie down for 30 min atorvastatin 40 mg tablet Commonly known as: LIPITOR Take 1 tablet by mouth daily at bedtime. For cholesterol. benzonatate 100 mg capsule Commonly known as: TESSALON PERLE Take 2 capsules by mouth three times a day as needed for cough. busPIRone 10 mg tablet Commonly known as: BUSPAR Take 1 tablet by mouth two times a day (more content not included)... Normal [facility] 11-14-2024 [facility] Telephone (INTMWS) SNEHA CARDENAS ([id number]) 1955 F Date Time Provider Department 11/14/24 JULIO DRAPER INTMWS During your visit today, we recorded the following information about you: Genna Lowry RN 11/14/2024 12:18 PM Signed Patient calls and states that she was at dialysis today. Patient reports that they did labs on her and her vitamin D level was low. Patient reports that they recommend patient take vitamin D daily but told her that she needs to contact PCP for order. Patient unsure of what vitamin D level was. Patient states that she will contact dialysis to see what level was and ask them to fax over results. JAMI Cannon Victor H, MD 11/20/2024 1:30 PM Signed The following approved medication requests have been transmitted electronically. Requested Prescriptions Signed Prescriptions Disp Refills ergocalciferol 50,000 unit capsule (VITAMIN D2, DRISDOL) 4 capsule 5 Sig: Take 1 capsule by mouth one time a week. Authorizing Provider: JULIO DRAPER MD Velasquez, Victor H, MD 11/20/2024 1:31 PM Signed Addended by: JULIO DRAPER on: 11/20/2024 01:31 PM Modules accepted: Orders Mary Kay Woodard RN 11/20/2024 1:42 PM Signed Pt called and is notified of providers message. Pt voices understanding. Mary Kay Woodard RN Allergies As of Date: 11/14/2024 Noted Allergy Reaction KEFLEX (CEPHALEXIN) 10/04/2005 5 - Intolerance Comments: Tachycardia, palpitations. VANCOMYCIN 06/07/2024 4 - Hives Date Reviewed: 11/14/2024 Reviewed by: Jean-Pierre Vitale APRN.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 - Fully Assessed Reason for Visit: Patient Update [1234] Primary Visit Diagnosis:Vitamin D deficiency [E55.9] Order(s):ergocalcifero l 50,000 unit capsule (VITAMIN D2, DRISDOL)Take 1 capsule by mouth one time a week.Disp: 4 capsuleRfl: 5 Prescriptions as of 11/20/2024 - ergocalciferol 50,000 unit capsule (VITAMIN D2, DRISDOL) Take 1 capsule by mouth one time a week. - ipratropium-albuterol (DUONEB) 0.5 mg-3 mg(2.5 mg base)/3 mL nebu Inhale 3 mL as instructed every 4 hours as needed for wheezing/shortness of breath. - predniSONE (DELTASONE) 10 mg tablet TAKE BY MOUTH 4 TABLETS DAILY FOR 2 DAYS, THEN 3 TABLETS DAILY FOR 2 DAYS, THEN 2 TABLETS DAILY FOR 2 DAYS, THEN 1 TABLET DAILY FOR 2 DAYS. - fluticasone (FLONASE) 50 mcg/actuation nasal spray Use 2 sprays in each nostril once daily. Rinse mouth after use. - calcium acetate,phosphat bind, (PHOSLO) 667 mg capsule Take 667 mg by mouth three times a day. - alendronate (FOSAMAX) 70 mg tablet Take 1 tablet by mouth one time a week. in the AM with glass of water on empty stomach. Do not take anything else by mouth or lie down for 30 min - Lactobacillus combination no.8 (ADULT PROBIOTIC ORAL) Take 1 capsule by mouth once daily. - fluticasone-umeclidin- vilanter (TRELEGY ELLIPTA) 200-62.5-25 mcg inhalation powder Inhale 1 Puff as instructed once daily. - ondansetron orally disintegrating (ZOFRAN ODT) 4 mg disintegrating tablet Take 1 tablet by mouth every 8 hours as needed for nausea/vomiting. - benzonatate (TESSALON PERLE) 100 mg capsule Take 2 capsules by mouth three times a day as needed for cough. - isosorbide mononitrate ER (IMDUR) 60 mg 24 hr tablet Take 1 tablet by mouth once daily. - montelukast (SINGULAIR) 10 mg tablet Take 1 tablet by mouth daily at bedtime. - sucralfate (CARAFATE) 1 gram tablet Take 1 tablet by mouth two times a day. - pantoprazole DR (PROTONIX) 40 mg tablet Take 1 tablet by mouth once daily. - albuterol HFA (PROAIR HFA) 90 mcg/actuation inhaler Inhale 2 Puffs as instructed every 4 hours as needed for wheezing/shortness of breath. - atorvastatin (LIPITOR) 40 mg tablet Take 1 tablet by mouth daily at bedtime. For cholesterol. - busPIRone (BUSPAR) 10 mg tablet Take 1 tablet by mouth two times a day. - OXYGEN, HOME THERAPY, Inhale 3 L/min as instructed as directed. 3L NC continuous, up to 4L with exertion - acetaminophen (TYLENOL) 325 mg tablet Take 650 mg by mouth every 6 hours as needed. - nitroglycerin sublingual (NITROSTAT) 0.4 mg SL tablet Dissolve 0.4 mg under the tongue every 5 minutes as needed for chest pain. - polyethylene glycol 3350 (MIRALAX) 17 gram/dose powder Take 17 g by mouth as needed for constipation. Dissolve dose in 4 - 8 ounces of liquid and take as directed. Problem List As Of Date 11/14/2024 Noted Resolved Tobacco use disorder [F17.200] 11/02/2007 02/10/2017 Essential tremor [G25.0] 11/02/2007 Other specified disorder of gallbladder [K82.8] 12/11/2007 07/20/2012 Unspecified gastritis and gastroduodenitis with*02/09/2010 07/15/2015 Blood in stool [K92.1] 02/09/2010 07/20/2012 Loss of weight [R63.4] 02/09/2010 07/20/2012 Upper GI bleed [K92.2] 02/09/2010 04/12/2024 Acute gastritis without mention of hemorrhage [*02/09/2010 07/20/2012 Aparna (more content not included)... Normal [facility] CNOVon 11-13-2024 CNOV Office Visit (INTMWS ) SNEHA CARDENAS ([id number]) 1955 F Date Time Provider Department 11/13/24 10:00 AM JULIO DRAPER INTMWS During your visit today, we recorded the following information about you: Pulse Blood pressure Weight 80/minute 120/64 62 kg Julio Draper MD 11/13/2024 10:54 AM Signed This note was created using vArmourter. Subjective Sneha Mendoza Conor is a 69 year old female here with Cash. She was in the ER 2 weeks ago for chest pain. She was not admitted, and advised [facility] with [facility]. She was seen by her telecommunicator 11/01/24 and Holter monitor for .paroxysmal atrial fibrillation was ordered. She was scheduled to see pulmonary here tomorrow. COPD has been relatively stable. She requested prednisone to have on hand. Review of Systems Constitutional: Negative for chills and fever. Respiratory: Positive for cough and shortness of breath. Cardiovascular: Negative for chest pain, palpitations and leg swelling. Neurological: Negative. ACTIVE PROBLEM LIST Essential Tremor Environmental Allergies Chronic Obstructive Pulmonary Disease (Hcc) Primary Hypertension Hyperlipidemia Age-Related Osteoporosis Without Current Pathological Fracture Lung Nodule Chronic Respiratory Failure With Hypoxia (Hcc) Duodenal Ulcer Paroxysmal Atrial Fibrillation (Hcc) Anemia Requiring Transfusions Dysphagia Former Smoker Nstemi (Non-St Elevated Myocardial Infarction) (Hcc) Pleural Effusion Malnutrition of Mild Degree (Hcc) Esrd (End Stage Renal Disease) (Hcc) Coronary Artery Disease Anxiety About Health Social History Tobacco Use Smoking status: Former Current packs/day: 0.00 Average packs/day: 0.5 packs/day for 42.0 years (21.0 ttl pk-yrs) Types: Cigarettes Start date: 1974 Quit date: 05/23/2016 Years since quittin.4 Smokeless tobacco: Never Tobacco comments: Resumed short period. Quit for good 05/2016. Vaping Use Vaping status: Never Used Substance Use Topics Alcohol use: No Drug use: No Current Outpatient Medications Medication Sig fluticasone (FLONASE) 50 mcg/actuation nasal spray Use 2 sprays in each nostril once daily. Rinse mouth after use. calcium acetate,phosphat bind, (PHOSLO) 667 mg capsule Take 667 mg by mouth three times a day. alendronate (FOSAMAX) 70 mg tablet Take 1 tablet by mouth one time a week. in the AM with glass of water on empty stomach. Do not take anything else by mouth or lie down for 30 min Lactobacillus combination no.8 (ADULT PROBIOTIC ORAL) Take 1 capsule by mouth once daily. fluticasone-umeclidin- vilanter (TRELEGY ELLIPTA) 200-62.5-25 mcg inhalation powder Inhale 1 Puff as instructed once daily. ondansetron orally disintegrating (ZOFRAN ODT) 4 mg disintegrating tablet Take 1 tablet by mouth every 8 hours as needed for nausea/vomiting. benzonatate (TESSALON PERLE) 100 mg capsule Take 2 capsules by mouth three times a day as needed for cough. isosorbide mononitrate ER (IMDUR) 60 mg 24 hr tablet Take 1 tablet by mouth once daily. montelukast (SINGULAIR) 10 mg tablet Take 1 tablet by mouth daily at bedtime. sucralfate (CARAFATE) 1 gram tablet Take 1 tablet by mouth two times a day. pantoprazole DR (PROTONIX) 40 mg tablet Take 1 tablet by mouth once daily. albuterol HFA (PROAIR HFA) 90 mcg/actuation inhaler Inhale 2 Puffs as instructed every 4 hours as needed for wheezing/shortness of breath. atorvastatin (LIPITOR) 40 mg tablet Take 1 tablet by mouth daily at bedtime. For cholesterol. busPIRone (BUSPAR) 10 mg tablet Take 1 tablet by mouth two times a day. OXYGEN, HOME THERAPY, Inhale 3 L/min as instructed as directed. 3L NC continuous, up to 4L with exertion acetaminophen (TYLENOL) 325 mg tablet Take 650 mg by mouth every 6 hours as needed. nitroglycerin sublingual (NITROSTAT) 0.4 mg SL tablet Dissolve 0.4 mg under the tongue every 5 minutes as needed for chest pain. polyethylene glycol 3350 (MIRALAX) 17 gram/dose powder Take 17 g by mouth as needed for constipation. Dissolve dose in 4 - 8 ounces of liquid and take as directed. ipratropium-albuterol (DUONEB) 0.5 mg-3 mg(2.5 mg base)/3 mL nebu Inhale 3 mL as instructed every 4 hours as needed for wheezing/shortness of breath. predniSONE (DELTASONE) 10 mg tablet TAKE BY MOUTH 4 TABLETS DAILY FOR 2 DAYS, THEN 3 TABLETS DAILY FOR 2 DAYS, THEN 2 TABLETS DAILY FOR 2 DAYS, THEN 1 TABLET DAILY FOR 2 DAYS. No current facility-administered medications for this visit. Objective BP 120/64 (BP Site: Right Arm, BP Position: Sitting, BP Cuff Size: Large Adult) Pulse 80 Wt 62 kg (136 lb 11 oz) SpO2 98% BMI 23.83 kg/m? Physical Exam Constitutional: General: She is not in acute distress. Comments: On O2, wheelchair bound. Cardiovascular: Rate and Rhythm: Normal rate and regular rhythm. Heart sounds: No murmur heard. No gallop (more content not included)... Normal [facility] CT CHEST WO IVCONon 11-07-19 CT CHEST WO IVCON * * *Final Report* * * DATE OF EXAM: Nov 06 2024 10:16AM [facility] 0541 - CT CHEST WO IVCON / PROCEDURE REASON: Ground glass opacity present on imaging of lung * * * * Physician Interpretation * * * * EXAMINATION: CHEST CT WITHOUT CONTRAST CLINICAL HISTORY: Ground glass opacity present on imaging of lung Technique: Spiral CT acquisition of the chest from the thoracic inlet to the upper abdomen without contrast. MQ: [id number] CT Radiation dose: Integrated Dose-length product (DLP) for this visit = 242 mGy*cm CT Dose Reduction Employed: Automated exposure control(AEC) and iterative recon Comparison: Chest CT dated 05/10/2024 RESULT: Limitations: None. Lines, tubes, and devices: None. Lung parenchyma and airways: No consolidation. No suspicious pulmonary nodule. Slightly decreased in size of 5 mm lateral right upper lobe pulmonary nodule on image 34, previously 8 mm. Unchanged in size of a 7 mm medial left upper lobe subpleural nodule on image 34, a 6 mm anterior left upper lobe nodule on image 50, a 4 mm posterior left lower lobe nodule on image 147. Stable 2.2 x 1.3 cm right upper lobe groundglass nodule on image 100, series 6, which is flat on coronal and sagittal image, likely scarring or atelectasis. Scattered linear atelectasis/scarring in the middle lobe, and bilateral lower lobes.. Moderate upper lung predominant centrilobular and paraseptal emphysema. Mild biapical scarring, likely post inflammatory.. No endotracheal or central endobronchial lesion is identified. Pleural space: Unchanged chronic small bilateral pleural effusions with pleural thickening. No pneumothorax. Lower neck, lymph nodes, and mediastinum: The imaged thyroid gland is normal. No lymphadenopathy in the supraclavicular, axillary, mediastinal, or hilar regions. The esophagus is unremarkable. Heart, pericardium, and thoracic vessels: The ascending aorta is enlarged measuring up to 4 cm. The pulmonary trunk is normal in size. The cardiac chambers are normal in size. Mild coronary artery atherosclerotic calcifications are noted, although the study is not optimized for coronary assessment. No pericardial effusion or thickening. Aortic valve calcifications are present. Moderate atherosclerotic calcifications of the thoracic aorta and arch vessels. Bones and soft tissues: No acute osseous abnormality. Status post right shoulder arthroplasty. Upper abdomen: No acute abnormality in the imaged upper abdomen. Localizer images: No additional findings. IMPRESSION: 1. No new or enlarging pulmonary nodules or thoracic lymphadenopathy. Slightly decreased in size of lateral right upper lobe pulmonary nodule. 2. Stable right upper lobe groundglass nodule, flat on coronal and sagittal image, likely a scarring or atelectasis. 3. Unchanged chronic small bilateral pleural effusions with pleural thickening. Director Of Vocational Training: JING Transcribe Date/Time: Nov 12 2024 11:24A Dictated by : MAE CRAIG MD This examination was interpreted and the report reviewed and electronically signed by: MAE CRAIG MD on Nov 12 2024 11:30AM EST [id number] Normal [facility] Cardiology Visit Reporton Cardiology Visit Report Normal [facility] 12 Lead EKGon 10-31-2024 12 Lead EKG Normal [facility] Absolute lymphocyte countOrd ered By: Dariel Combs on 10-31-2024 Lymphocytes Auto (Unsp spec) [#/Vol] 1.61 10*3/uL 0.83-4.51 [facility] Absolute neutrophil countOrd ered By: Dariel Charlene on 10-31-2024 Neutrophils (Bld) [#/Vol] 7.9 10*3/uL High 2.0-7.7 [facility] Anion gap in Serum or Plasma Ordered By: Dariel Combs on 10-31-2024 Anion gap [Moles/Vol] 14 mmol/L 5-15 [facility] Automated lymphocyte count a s percentage of total leukocytesOrdered By: Dariel Combs on 10-31-2024 Lymphocytes/100 WBC Auto (Unsp spec) 14.8 % Low 19-41 [facility] BUN/creatinine ratioOrdered By: Dariel Combs on 10-31-2024 Urea nitrogen/Creatinine [Mass ratio] 7.0 mg/mg Low 10-20 [facility] Basic Metabolic Profile (BMP )on 10-31-2024 BUN/CRE 7.0 RATIO Low 10-20 [facility] Comment on above: Performed By: #### L 500.2500, L100.0100, L501.4021 ####[facility] [address] [place], [address] Calcium [Mass/Vol] 8.8 mg/dL Normal 7.6-11.0 [facility] Comment on above: Performed By: #### L 500.2500, L100.0100, L501.4021 ####[facility] [address] [place], [address] Chloride [Moles/Vol] 97 mmol/L Low 98-108 [facility] Comment on above: Performed By: #### L 500.2500, L100.0100, L501.4021 ####[facility] [address] [place], [address] CO2 [Moles/Vol] 27.3 mmol/L Normal 21.0-32.0 [facility] Comment on above: Performed By: #### L 500.2500, L100.0100, L501.4021 ####[facility] [address] [place], [address] Creatinine [Mass/Vol] 2.14 mg/dL High 0.70-1.20 [facility] Comment on above: Performed By: #### L 500.2500, L100.0100, L501.4021 ####[facility] [address] [place], [address] ECRCL 21.73 ml/min Low 50-250 [facility] Comment on above: Performed By: #### L 500.2500, L100.0100, [id number] ####[facility] [address] [place], [address] GAP 14 Normal 5-15 [facility] Comment on above: Performed By: #### L 500.2500, L100.0100, L501.4021 ####[facility] [address] [place], [address] GFR/1.73 sq M.predicted among non-blacks MDRD (S/P/Bld) [Vol rate/Area] 25 mL/min/{1.73_m2} Low >60 [facility] Comment on above: Result Comment: mL/m in/1.73m2 CKD-EPI Creatinine Equation (2020) Performed By: #### L 500.2500, L100.0100, L501.4021 ####[facility] [address] [place], [address] Glucose [Mass/Vol] 95 mg/dL Normal 70-99 [facility] Comment on above: Performed By: #### L 500.2500, L100.0100, L501.4021 ####[facility] [address] [place], [address] Potassium [Moles/Vol] 3.6 mmol/L Normal 3.3-5.1 [facility] Comment on above: Result Comment: Hemo lysis present, Results??could be affected.?? Performed By: #### L 500.2500, L100.0100, L501.4021 ####[facility] [address] [place], [address] Sodium [Moles/Vol] 137 mmol/L Normal 133-145 [facility] Comment on above: Performed By: #### L 500.2500, L100.0100, L501.4021 ####[facility] [address] [place], [address] Urea nitrogen [Mass/Vol] 15 mg/dL Normal 4-19 [facility] Comment on above: Performed By: #### L 500.2500, L100.0100, L501.4021 ####[facility] [address] [place], [address] Basophil percentageOrdered B y: Dariel Combs on 10-31-2024 Basophils/100 WBC (Bld) 0.6 % 0-1 [facility] CBC W/Diff, Automatedon 10-04-2024 Absolute Lymph 1.61 X10 3/uL Normal 0.83-4.51 [facility] Comment on above: Performed By: #### L 500.2500, L100.0100, L501.4021 ####[facility] [address] [place], [address] Absolute Neut 7.9 X10 3/uL High 2.0-7.7 [facility] Comment on above: Performed By: #### L 500.2500, L100.0100, L501.4021 ####[facility] [address] [place], [address] Basophils/100 WBC (Bld) 0.6 % Normal 0-1 [facility] Comment on above: Performed By: #### L 500.2500, L100.0100, [id number] ####[facility] [address] [place], [address] Eosinophils/100 WBC (Bld) 2.7 % Normal 0-5 [facility] Comment on above: Performed By: #### L 500.2500, L100.0100, L501.4021 ####[facility] [address] [place], [address] Erythrocyte distribution width (RBC) [Ratio] 15.6 % High 11.6-14.6 [facility] Comment on above: Performed By: #### L 500.2500, L100.0100, L501.4021 ####[facility] [address] [place], [address] Hematocrit (Bld) [Volume fraction] 38.2 % Normal 37-47 [facility] Comment on above: Performed By: #### L 500.2500, L100.0100, L501.4021 ####[facility] [address] [place], [address] Hemoglobin (Bld) [Mass/Vol] 12.2 g/dL Normal 12.0-15.0 [facility] Comment on above: Performed By: #### L 500.2500, L100.0100, L501.4021 ####[facility] [address] [place], [address] IG% 0.500 Normal 0.0-0.9 [facility] Comment on above: Result Comment: IG% - Immature Granulocytes (promyelocytes, myelocytes andmetamyelocytes) > 1% indicates that a LEFT SHIFT is Present. Performed By: #### L 500.2500, L100.0100, L501.4021 ####[facility] [address] [place], [address] Lymphocytes/100 WBC (Bld) 14.8 % Low 19-41 [facility] Comment on above: Performed By: #### L 500.2500, L100.0100, L501.4021 ####[facility] [address] [place], [address] MCH (RBC) [Entitic mass] 30.0 pg Normal 27.0-32.0 [facility] Comment on above: Performed By: #### L 500.2500, L100.0100, L501.4021 ####[facility] [facility] [address] [place], [address] MCHC (RBC) [Mass/Vol] 31.9 g/dL Low 32-36 [facility] Comment on above: Performed By: #### L 500.2500, L100.0100, L501.4021 ####[facility] [address] [place], [address] MCV (RBC) [Entitic vol] 93.9 fL Normal 81-99 [facility] Comment on above: Performed By: #### L 500.2500, L100.0100, L501.4021 ####[facility] [address] [place], [address] Monocytes/100 WBC (Bld) 8.9 % Normal 0-10 [facility] Comment on above: Performed By: #### L 500.2500, L100.0100, L501.4021 ####[facility] [address] [place], [address] Neutrophils/100 WBC (Bld) 72.5 % High 47-70 [facility] Comment on above: Performed By: #### L 500.2500, L100.0100, L501.4021 ####[facility] [address] [place], [address] Nucleated RBC (Bld) [#/Vol] 0 10*3/uL Normal 0-5 [facility] Comment on above: Performed By: #### L 500.2500, L100.0100, L501.4021 ####[facility] [address] [place], [address] Platelet mean volume (Bld) [Entitic vol] 9.3 fL Normal 6.2-12.0 [facility] Comment on above: Performed By: #### L 500.2500, L100.0100, L501.4021 ####[facility] [address] [place], [address] Platelets (Bld) [#/Vol] 339 10*3/uL Normal 150-450 [facility] Comment on above: Performed By: #### L 500.2500, L100.0100, L501.4021 ####[facility] [address] [place], [address] RBC (Bld) [#/Vol] 4.07 10*6/uL Low 4.2-5.4 [facility] Comment on above: Performed By: #### L 500.2500, L100.0100, L501.4021 ####[facility] [address] [place], [address] RDW SD 53.1 fl High 35.1-43.9 [facility] Comment on above: Performed By: #### L 500.2500, L100.0100, L501.4021 ####[facility] [address] [place], [address] WBC (Bld) [#/Vol] 10.9 10*3/uL Normal 4.4-11.0 [facility] Comment on above: Performed By: #### L 500.2500, L100.0100, L501.4021 ####[facility] [address] [place], [address] Carbon dioxide, total [Moles /volume] in Central venous bloodOrdered By: Dariel Combs on 10-31-2024 CO2 [Moles/Vol] 27.3 mmol/L 21.0-32.0 [facility] Chest 1 View (Portable)on Chest 1 View (Portable) Normal [facility] Chloride assayOrdered By: Angel Combs on 10-31-2024 Chloride [Moles/Vol] 97 mmol/L Low 98-108 [facility] Emergency Department Summary on 10-31-2024 Emergency Department Summary Normal [facility] Eosinophil percentageOrdered By: Dariel Combs on 10-31-2024 Eosinophils/100 WBC (Bld) 2.7 % 0-5 [facility] Erythrocyte distribution wid th ratioOrdered By: Dariel Combs on 10-31-2024 Erythrocyte distribution width (RBC) [Ratio] 15.6 % High 11.6-14.6 [facility] Erythrocyte distribution wid th standard deviationOrdered By: Dariel Combs on 10-31-2024 Erythrocyte distribution width (RBC) [Ratio] 53.1 fl High 35.1-43.9 [facility] Glomerular filtration rate ( GFR) estimation/1.73 sq m using serum, plasma, or whole bOrdered By: Dariel Combs on 10-31-2024 GFR/1.73 sq M.predicted among non-blacks MDRD (S/P/Bld) [Vol rate/Area] 25 mL/min/{1.73_m2} Low >60 [facility] Comment on above: mL/min/1.73m2 CKD-EP I Creatinine Equation (2020) Hematocrit Auto (Bld) [Volum e fraction]Ordered By: Dariel Combs on 10-31-2024 Hematocrit (Bld) [Volume fraction] 38.2 % 37-47 [facility] Hemoglobin measurementOrdere d By: Dariel Combs on 10-31-2024 Hemoglobin (Bld) [Mass/Vol] 12.2 g/dL 12.0-15.0 [facility] Immature granulocytes/100 WB C Auto (Bld)Ordered By: Dariel Combs on 10-31-2024 Immature granulocytes/100 WBC (Bld) 0.500 % 0.0-0.9 [facility] Comment on above: IG% - Immature Granu locytes (promyelocytes, myelocytes and metamyelocytes) > 1% indicates that a LEFT SHIFT is Present. L499.0042on 10-31-2024 Trop T High Sen 50 ng/L High <=14 [facility] Comment on above: Performed By: #### L 499.0042 ####[facility] [address] [place], [address] L499.0043on 10-31-2024 Trop T High Sen Normal <=14 [facility] Comment on above: Result Comment: Canc elled via OM: MD Ordered Performed By: #### L 499.0043 ####[facility] [address] [place], [address] L501.4021on 10-31-2024 Trop T High Sen 52 ng/L High <=14 [facility] Comment on above: Performed By: #### L 500.2500, L100.0100, L501.4021 ####[facility] [address] [place], [address] MCV (mean corpuscular volume ) determinationOrdered By: Dariel Combs on 10-31-2024 MCV (RBC) [Entitic vol] 93.9 fL 81-99 [facility] Mean corpuscular hemoglobin (MCH) determinationOrdered By: Dariel Combs on 10-31-2024 MCH (RBC) [Entitic mass] 30.0 pg 27.0-32.0 [facility] Mean corpuscular hemoglobin concentration (MCHC) determinationOrdered By: Dariel Combs on 10-31-2024 MCHC (RBC) [Mass/Vol] 31.9 g/dL Low 32-36 [facility] Mean platelet volume determi nationOrdered By: Dariel Combs on 10-31-2024 Platelet mean volume (Bld) [Entitic vol] 9.3 fL 6.2-12.0 [facility] Monocyte percentageOrdered B y: Dariel Combs on 10-31-2024 Monocytes/100 WBC (Bld) 8.9 % 0-10 [facility] Neutrophil percentageOrdered By: Dariel Combs on 10-31-2024 Neutrophils/100 WBC (Bld) 72.5 % High 47-70 [facility] Nucleated red blood cell per centageOrdered By: Dariel Combs on 10-31-2024 Nucleated RBC/100 WBC (Bld) [Ratio] 0 % 0-5 [facility] Platelet countOrdered By: Angel lopez Charlene on 10-31-2024 Platelets (Bld) [#/Vol] 339 10*3/uL 150-450 [facility] Potassium measurement (mass/ volume)Ordered By: Dariel Combs on 10-31-2024 Potassium (Unsp spec) [Mass/Vol] 3.6 mmol/L 3.3-5.1 [facility] Comment on above: Hemolysis present, R esults could be affected. RBC Auto (Bld) [#/Vol]Ordere d By: Dariel Combs on 10-31-2024 RBC (Bld) [#/Vol] 4.07 10*6/uL Low 4.2-5.4 [facility] Serum creatinine measurement (mass/volume)Ordered By: Dariel Combs on 10-31-2024 Creatinine [Mass/Vol] 2.14 mg/dL High 0.70-1.20 [facility] Serum glucose measurement (m ass/volume)Ordered By: Dariel Combs on 10-31-2024 Glucose [Mass/Vol] 95 mg/dL 70-99 [facility] Serum or plasma calcium rena urement (mass/volume)Ordered By: Dariel Combs on 10-31-2024 Calcium [Mass/Vol] 8.8 mg/dL 7.6-11.0 [facility] Serum or plasma urea nitroge n measurement (mass/volume)Ordered By: Dariel Combs on 10-31-2024 Urea nitrogen [Mass/Vol] 15 mg/dL 4-19 [facility] Sodium levelOrdered By: Dariel Combs on 10-31-2024 Sodium [Moles/Vol] 137 mmol/L 133-145 [facility] Troponin T.cardiac [Mass/vol ume] in Serum or Plasma by High sensitivity methodOrdered By: Dariel Combs on 10-31-2024 Troponin T.cardiac High sensitivity method [Mass/Vol] 50 ng/L High <14 [facility] Troponin T.cardiac High sensitivity method [Mass/Vol] 52 ng/L High <14 [facility] White blood cell (WBC) count Ordered By: Dariel Combs on 10-31-2024 WBC (Bld) [#/Vol] 10.9 10*3/uL 4.4-11.0 [facility] Yudith 10-26-2024 CNPN Telephone (INTMWS) SNEHA CARDENAS ([id number]) 1955 F Date Time Provider Department 10/26/24 JULIO DRAPER INTMWS During your visit today, we recorded the following information about you: Ingrid Nunez LPN 10/26/2024 11:09 AM Signed Patient called in with complaints of shortness of breath and a high heart rate of 168. States she had a similar episode last night that had subsided until this morning when symptoms started again during kidney dialysis. She did try nitro tablet and prednisone which eased some of the intensity of symptoms. Denies any chest pain. Spoke with SASH CLAMP OPERATOR regarding symptoms and it was suggested that patient be evaluated at the ER due to extensive history and current symptoms. Allergies As of Date: 10/26/2024 Noted Allergy Reaction KEFLEX (CEPHALEXIN) 10/04/2005 5 - Intolerance Comments: Tachycardia, palpitations. VANCOMYCIN 06/07/2024 4 - Hives Date Reviewed: 10/08/2024 Reviewed by: Anushka Alexis LPN - Fully Assessed Reason for Visit: Palpitations [79] Prescriptions as of 10/26/2024 - calcium acetate,phosphat bind, (PHOSLO) 667 mg capsule Take 667 mg by mouth three times a day. - predniSONE (DELTASONE) 10 mg tablet TAKE BY MOUTH 4 TABLETS DAILY FOR 2 DAYS, THEN 3 TABLETS DAILY FOR 2 DAYS, THEN 2 TABLETS DAILY FOR 2 DAYS, THEN 1 TABLET DAILY FOR 2 DAYS. - alendronate (FOSAMAX) 70 mg tablet Take 1 tablet by mouth one time a week. in the AM with glass of water on empty stomach. Do not take anything else by mouth or lie down for 30 min - Lactobacillus combination no.8 (ADULT PROBIOTIC ORAL) Take 1 capsule by mouth once daily. - fluticasone-umeclidin- vilanter (TRELEGY ELLIPTA) 200-62.5-25 mcg inhalation powder Inhale 1 Puff as instructed once daily. - ondansetron orally disintegrating (ZOFRAN ODT) 4 mg disintegrating tablet Take 1 tablet by mouth every 8 hours as needed for nausea/vomiting. - benzonatate (TESSALON PERLE) 100 mg capsule Take 2 capsules by mouth three times a day as needed for cough. - azithromycin (ZITHROMAX) 250 mg tablet Take 1 tablet by mouth once daily. - guaiFENesin (ROBITUSSIN) 100 mg/5 mL syrup Take 30 mL by mouth two times a day. - isosorbide mononitrate ER (IMDUR) 60 mg 24 hr tablet Take 1 tablet by mouth once daily. - montelukast (SINGULAIR) 10 mg tablet Take 1 tablet by mouth daily at bedtime. - sucralfate (CARAFATE) 1 gram tablet Take 1 tablet by mouth two times a day. - pantoprazole DR (PROTONIX) 40 mg tablet Take 1 tablet by mouth once daily. - albuterol HFA (PROAIR HFA) 90 mcg/actuation inhaler Inhale 2 Puffs as instructed every 4 hours as needed for wheezing/shortness of breath. - atorvastatin (LIPITOR) 40 mg tablet Take 1 tablet by mouth daily at bedtime. For cholesterol. - busPIRone (BUSPAR) 10 mg tablet Take 1 tablet by mouth two times a day. - fluticasone (FLONASE) 50 mcg/actuation nasal spray Use 2 Sprays in each nostril once daily. Rinse mouth after use. - OXYGEN, HOME THERAPY, Inhale 3 L/min as instructed as directed. 3L NC continuous, up to 4L with exertion - acetaminophen (TYLENOL) 325 mg tablet Take 650 mg by mouth every 6 hours as needed. - nitroglycerin sublingual (NITROSTAT) 0.4 mg SL tablet Dissolve 0.4 mg under the tongue every 5 minutes as needed for chest pain. - polyethylene glycol 3350 (MIRALAX) 17 gram/dose powder Take 17 g by mouth as needed for constipation. Dissolve dose in 4 - 8 ounces of liquid and take as directed. - ipratropium-albuterol (DUONEB) 0.5 mg-3 mg(2.5 mg base)/3 mL nebu Inhale 3 mL as instructed every 4 hours as needed for wheezing/shortness of breath. Problem List As Of Date 10/26/2024 Noted Resolved Tobacco use disorder [F17.200] 11/02/2007 02/10/2017 Essential tremor [G25.0] 11/02/2007 Other specified disorder of gallbladder [K82.8] 12/11/2007 07/20/2012 Unspecified gastritis and gastroduodenitis with*02/09/2010 07/15/2015 Blood in stool [K92.1] 02/09/2010 07/20/2012 Loss of weight [R63.4] 02/09/2010 07/20/2012 Upper GI bleed [K92.2] 02/09/2010 04/12/2024 Acute gastritis without mention of hemorrhage [*02/09/2010 07/20/2012 Essential hypertension, benign [I10] 05/17/2011 07/15/2015 Migraine headache [G43.909] 07/15/2015 Irritable bowel syndrome [K58.9] 07/15/2015 Scoliosis [M41.9] 02/10/2017 Environmental allergies [Z91.09] History of colon polyps [Z86.0100] 07/15/2015 Chronic obstructive pulmonary disease (HCC) [J4*07/25/2012 Cervical disc disorder with radiculopathy [M50.*08/15/2015 02/10/2017 DDD (degenerative disc disease), cervical [M50.*08/15/2015 02/10/2017 Primary hypertension [I10] 06/03/2016 Asthma [J45.909] 02/15/2019 Hyperlipidemia [E78.5] 02/15/2019 Age-related osteoporosis without current pathol*08/28/2021 Hypoxemia [R09.02] 05/01/2021 08/25/2023 Lung nodule [R91.1] 05/12/2021 Elevated blood pressure reading [R03.0] 04/05 (more content not included)... Normal [facility] CNOVon 10-08-2024 CNOV Office Visit (INTMWS ) SNEHA CARDENAS ([id number]) 1955 F Date Time Provider Department 10/08/24 6:00 PM JULIO DRAPER INTMWS During your visit today, we recorded the following information about you: Pulse Blood pressure Weight 84/minute 118/70 59.5 kg Julio Draper MD 10/08/2024 7:23 PM Signed This note was created using [employer]. Subjective Patient presents with: Breast Problem The patient consented to the use of [employer] software for draft documentation of the visit consistent with [facility] Notice of Privacy Practices. Sneha is a 69-year-old female with a history of COPD, presenting with dyspnea and chest tightness. Sneha reports a recent exacerbation of dyspnea and chest tightness. She notes that last week was the best week I had forever, with successful dialysis sessions and good respiratory status, requiring no increase in oxygen flow above 3 L/min to move around the house. She was able to engage in activities such as cleaning and cooking without difficulty. However, on Tuesday, she noticed a decline in her respiratory status, experiencing dyspnea upon standing. This morning, she experienced significant dyspnea when getting up to go to the bathroom and before dialysis. She took a 10 mg tablet of prednisone, which she had remaining from a previous prescription, to manage her symptoms and was able to complete her dialysis session. She reports that the prednisone provided relief. Sneha also reports that last week, a health nurse from the hospital and the nurses at her dialysis center noted improved lung sounds, with airflow present and no diminished breath sounds. However, this morning, the nurses at her dialysis center noted diminished breath sounds and recommended a breathing treatment, which she completed after dialysis. She reports that the breathing treatment provided some relief but exacerbated her tremors, causing shakiness. She denies any current symptoms of illness, such as fever or increased phlegm production, and reports only minimal cough. She does report experiencing dizziness on Tuesday, which she describes as similar to vertigo, and required assistance to the bathroom. She also experienced nausea on Tuesday but reports that her breathing was still manageable. On Tuesday and Tuesday night, she experienced chest pain, which she describes as muscular in nature. Sneha is currently on 3 L/min of oxygen at rest and 4 L/min when ambulating. She reports that last week, she was able to move around the house on 3 L/min without difficulty. She has completed her course of prednisone and has one month and four days remaining on her Z-Babak. She expresses concern about her current symptoms and a desire to avoid hospitalization. Review of Systems Constitutional: (-) fever Cardiovascular: (+) chest pain, (-) palpitations, leg swelling Respiratory: (+) shortness of breath, (+) chest tightness, (-) cough, (-) phlegm Gastrointestinal: (-) for abdominal pain, nausea, vomiting. Neurological: (+) tremors ACTIVE PROBLEM LIST Essential Tremor Environmental Allergies Chronic Obstructive Pulmonary Disease (Hcc) Primary Hypertension Hyperlipidemia Age-Related Osteoporosis Without Current Pathological Fracture Lung Nodule Chronic Respiratory Failure With Hypoxia (Hcc) Duodenal Ulcer Paroxysmal Atrial Fibrillation (Hcc) Anemia Requiring Transfusions Dysphagia Former Smoker Nstemi (Non-St Elevated Myocardial Infarction) (Hcc) Pleural Effusion Malnutrition of Mild Degree (Hcc) Esrd (End Stage Renal Disease) (Hcc) Coronary Artery Disease Anxiety About Health Social History Tobacco Use Smoking status: Former Current packs/day: 0.00 Average packs/day: 0.5 packs/day for 42.0 years (21.0 ttl pk-yrs) Types: Cigarettes Start date: 1974 Quit date: 05/23/2016 Years since quittin.3 Smokeless tobacco: Never Tobacco comments: Resumed short period. Quit for good 05/2016. Vaping Use Vaping status: Never Used Substance Use Topics Alcohol use: No Drug use: No Current Outpatient Medications Medication Sig calcium acetate,phosphat bind, (PHOSLO) 667 mg capsule Take 667 mg by mouth three times a day. alendronate (FOSAMAX) 70 mg tablet Take 1 tablet by mouth one time a week. in the AM with glass of water on empty stomach. Do not take anything else by mouth or lie down for 30 min Lactobacillus combination no.8 (ADULT PROBIOTIC ORAL) Take 1 capsule by mouth once daily. fluticasone-umeclidin- vilanter (TRELEGY ELLIPTA) 200-62.5-25 mcg inhalation powder Inhale 1 Puff as instructed once daily. ondansetron orally disintegrating (ZOFRAN ODT) 4 mg disintegrating tablet Take 1 tablet by mouth every 8 hours as needed for nausea/vomiting. benzonatate (TESSALON PERLE) 100 mg capsule Take 2 capsules by mouth three times a day as neede (more content not included)... Normal [facility] 10-08-2024 CNPN Telephone (INTMWS) SNEHA CARDENAS ([id number]) 1955 F Date Time Provider Department 10/08/24 JULIO DRAPER INTMWS During your visit today, we recorded the following information about you: Sarah Peña, RN 10/08/2024 2:38 PM Signed Pt calling in as she has a hx of COPD and RSV. Pt states Dr. Draper put her on antibiotics for 3 months and she had been on Prednisone. Pt has been doing well but today has noticed some increase in her SOB. States she took a 10 mg of Prednisone but that was her last one. She takes them as needed. She had dialysis today and the nurse told her that her lung sounds were diminished. Current pulse is 90 and pulse ox is 97%. Pt is wondering about more Prednisone. Pt booked for an appt with Dr. Draper at 6 pm this evening. Allergies As of Date: 10/08/2024 Noted Allergy Reaction KEFLEX (CEPHALEXIN) 10/04/2005 5 - Intolerance Comments: Tachycardia, palpitations. VANCOMYCIN 06/07/2024 4 - Hives Date Reviewed: 09/04/2024 Reviewed by: Jean-Pierre Vitale APRN.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 - Fully Assessed Reason for Visit: Breathing difficulties [Other] Prescriptions as of 10/08/2024 - alendronate (FOSAMAX) 70 mg tablet Take 1 tablet by mouth one time a week. in the AM with glass of water on empty stomach. Do not take anything else by mouth or lie down for 30 min - Lactobacillus combination no.8 (ADULT PROBIOTIC ORAL) Take 1 capsule by mouth once daily. - fluticasone-umeclidin- vilanter (TRELEGY ELLIPTA) 200-62.5-25 mcg inhalation powder Inhale 1 Puff as instructed once daily. - ondansetron orally disintegrating (ZOFRAN ODT) 4 mg disintegrating tablet Take 1 tablet by mouth every 8 hours as needed for nausea/vomiting. - benzonatate (TESSALON PERLE) 100 mg capsule Take 2 capsules by mouth three times a day as needed for cough. - azithromycin (ZITHROMAX) 250 mg tablet Take 1 tablet by mouth once daily. - guaiFENesin (ROBITUSSIN) 100 mg/5 mL syrup Take 30 mL by mouth two times a day. - isosorbide mononitrate ER (IMDUR) 60 mg 24 hr tablet Take 1 tablet by mouth once daily. - montelukast (SINGULAIR) 10 mg tablet Take 1 tablet by mouth daily at bedtime. - sucralfate (CARAFATE) 1 gram tablet Take 1 tablet by mouth two times a day. - pantoprazole DR (PROTONIX) 40 mg tablet Take 1 tablet by mouth once daily. - albuterol HFA (PROAIR HFA) 90 mcg/actuation inhaler Inhale 2 Puffs as instructed every 4 hours as needed for wheezing/shortness of breath. - atorvastatin (LIPITOR) 40 mg tablet Take 1 tablet by mouth daily at bedtime. For cholesterol. - busPIRone (BUSPAR) 10 mg tablet Take 1 tablet by mouth two times a day. - fluticasone (FLONASE) 50 mcg/actuation nasal spray Use 2 Sprays in each nostril once daily. Rinse mouth after use. - OXYGEN, HOME THERAPY, Inhale 3 L/min as instructed as directed. 3L NC continuous, up to 4L with exertion - acetaminophen (TYLENOL) 325 mg tablet Take 650 mg by mouth every 6 hours as needed. - nitroglycerin sublingual (NITROSTAT) 0.4 mg SL tablet Dissolve 0.4 mg under the tongue every 5 minutes as needed for chest pain. - polyethylene glycol 3350 (MIRALAX) 17 gram/dose powder Take 17 g by mouth as needed for constipation. Dissolve dose in 4 - 8 ounces of liquid and take as directed. - ipratropium-albuterol (DUONEB) 0.5 mg-3 mg(2.5 mg base)/3 mL nebu Inhale 3 mL as instructed every 4 hours as needed for wheezing/shortness of breath. Problem List As Of Date 10/08/2024 Noted Resolved Tobacco use disorder [F17.200] 11/02/2007 02/10/2017 Essential tremor [G25.0] 11/02/2007 Other specified disorder of gallbladder [K82.8] 12/11/2007 07/20/2012 Unspecified gastritis and gastroduodenitis with*02/09/2010 07/15/2015 Blood in stool [K92.1] 02/09/2010 07/20/2012 Loss of weight [R63.4] 02/09/2010 07/20/2012 Upper GI bleed [K92.2] 02/09/2010 04/12/2024 Acute gastritis without mention of hemorrhage [*02/09/2010 07/20/2012 Essential hypertension, benign [I10] 05/17/2011 07/15/2015 Migraine headache [G43.909] 07/15/2015 Irritable bowel syndrome [K58.9] 07/15/2015 Scoliosis [M41.9] 02/10/2017 Environmental allergies [Z91.09] History of colon polyps [Z86.0100] 07/15/2015 Chronic obstructive pulmonary disease (HCC) [J4*07/25/2012 Cervical disc disorder with radiculopathy [M50.*08/15/2015 02/10/2017 DDD (degenerative disc disease), cervical [M50.*08/15/2015 02/10/2017 Primary hypertension [I10] 06/03/2016 Asthma [J45.909] 02/15/2019 Hyperlipidemia [E78.5] 02/15/2019 Age-related osteoporosis without current pathol*08/28/2021 Hypoxemia [R09.02] 05/01/2021 08/25/2023 Lung nodule [R91.1] 05/12/2021 Elevated blood pressure reading [R03.0] 05/03/2022 08/25/2023 Chronic respiratory failure with hypoxia (HCC) *11/05/2022 Duodenal ulcer [K26.9] 06/30/2023 Paroxysmal atrial fibrillation (HCC) [I48.0] 06/30/2023 Pneumonia due to infectious organism (more content not included)... Normal [facility] XR CHEST 2V FRONTAL/LATon XR CHEST 2V FRONTAL/LAT * * *Final Repor t* * * DATE OF EXAM: Oct 08 2024 7:27PM WOX [id number] - XR CHEST 2V FRONTAL/LAT / PROCEDURE REASON: Pneumonia of right lower lobe due to infectious organism * * * * Physician Interpretation * * * * EXAMINATION: CHEST RADIOGRAPH (2 VIEW FRONTAL and LATERAL) CLINICAL HISTORY: Pneumonia of right lower lobe due to infectious organism MQ: [id number] EXAM DATE/TIME: 10/08/2024 7:27 PM COMPARISON: 10/31/2023 RESULT: Lines, tubes, and devices: None. Lungs and pleura: No persistent consolidation. No lung mass. No pleural effusion. No pneumothorax. Minimal persistent linear atelectasis at the right lung base Cardiomediastinal silhouette: Normal cardiomediastinal silhouette. Bones and soft tissues: Unremarkable. Right shoulder hardware IMPRESSION: Improved. Minimal persistent linear atelectasis at the right lung base Director Of Vocational Training: P[employer] Transcribe Date/Time: Oct 09 2024 1:47P Dictated by : LU JAMESON MD This examination was interpreted and the report reviewed and electronically signed by: LU JAMESON MD on Oct 09 2024 1:57PM EST [id number] Normal [facility] SNEHA CARDENA[facility] ([id number]) 1955 F Date Time Provider Department 09/26/24 JULIO DRAPER INTMWS During your visit today, we recorded the following information about you: Le Aponte, JAMI 09/26/2024 3:27 PM Signed Nelson Nurse with [facility] calling and states patient will be seen one time next week and then will be discharged from services. No call back needed. Le Aponte RN Allergies As of Date: 09/26/2024 Noted Allergy Reaction KEFLEX (CEPHALEXIN) 10/04/2005 5 - Intolerance Comments: Tachycardia, palpitations. VANCOMYCIN 06/07/2024 4 - Hives Date Reviewed: 09/04/2024 Reviewed by: Jean-Pierre Vitale APRN.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 - Fully Assessed Reason for Visit: Home Health Nursing Update [Other] Prescriptions as of 09/26/2024 - alendronate (FOSAMAX) 70 mg tablet Take 1 tablet by mouth one time a week. in the AM with glass of water on empty stomach. Do not take anything else by mouth or lie down for 30 min - Lactobacillus combination no.8 (ADULT PROBIOTIC ORAL) Take 1 capsule by mouth once daily. - fluticasone-umeclidin- vilanter (TRELEGY ELLIPTA) 200-62.5-25 mcg inhalation powder Inhale 1 Puff as instructed once daily. - ondansetron orally disintegrating (ZOFRAN ODT) 4 mg disintegrating tablet Take 1 tablet by mouth every 8 hours as needed for nausea/vomiting. - benzonatate (TESSALON PERLE) 100 mg capsule Take 2 capsules by mouth three times a day as needed for cough. - azithromycin (ZITHROMAX) 250 mg tablet Take 1 tablet by mouth once daily. - guaiFENesin (ROBITUSSIN) 100 mg/5 mL syrup Take 30 mL by mouth two times a day. - isosorbide mononitrate ER (IMDUR) 60 mg 24 hr tablet Take 1 tablet by mouth once daily. - montelukast (SINGULAIR) 10 mg tablet Take 1 tablet by mouth daily at bedtime. - sucralfate (CARAFATE) 1 gram tablet Take 1 tablet by mouth two times a day. - pantoprazole DR (PROTONIX) 40 mg tablet Take 1 tablet by mouth once daily. - albuterol HFA (PROAIR HFA) 90 mcg/actuation inhaler Inhale 2 Puffs as instructed every 4 hours as needed for wheezing/shortness of breath. - atorvastatin (LIPITOR) 40 mg tablet Take 1 tablet by mouth daily at bedtime. For cholesterol. - busPIRone (BUSPAR) 10 mg tablet Take 1 tablet by mouth two times a day. - fluticasone (FLONASE) 50 mcg/actuation nasal spray Use 2 Sprays in each nostril once daily. Rinse mouth after use. - OXYGEN, HOME THERAPY, Inhale 3 L/min as instructed as directed. 3L NC continuous, up to 4L with exertion - acetaminophen (TYLENOL) 325 mg tablet Take 650 mg by mouth every 6 hours as needed. - nitroglycerin sublingual (NITROSTAT) 0.4 mg SL tablet Dissolve 0.4 mg under the tongue every 5 minutes as needed for chest pain. - polyethylene glycol 3350 (MIRALAX) 17 gram/dose powder Take 17 g by mouth as needed for constipation. Dissolve dose in 4 - 8 ounces of liquid and take as directed. - ipratropium-albuterol (DUONEB) 0.5 mg-3 mg(2.5 mg base)/3 mL nebu Inhale 3 mL as instructed every 4 hours as needed for wheezing/shortness of breath. Problem List As Of Date 09/26/2024 Noted Resolved Tobacco use disorder [F17.200] 11/02/2007 02/10/2017 Essential tremor [G25.0] 11/02/2007 Other specified disorder of gallbladder [K82.8] 12/11/2007 07/20/2012 Unspecified gastritis and gastroduodenitis with*02/09/2010 07/15/2015 Blood in stool [K92.1] 02/09/2010 07/20/2012 Loss of weight [R63.4] 02/09/2010 07/20/2012 Upper GI bleed [K92.2] 02/09/2010 04/12/2024 Acute gastritis without mention of hemorrhage [*02/09/2010 07/20/2012 Essential hypertension, benign [I10] 05/17/2011 07/15/2015 Migraine headache [G43.909] 07/15/2015 Irritable bowel syndrome [K58.9] 07/15/2015 Scoliosis [M41.9] 02/10/2017 Environmental allergies [Z91.09] History of colon polyps [Z86.0100] 07/15/2015 Chronic obstructive pulmonary disease (HCC) [J4*07/25/2012 Cervical disc disorder with radiculopathy [M50.*08/15/2015 02/10/2017 DDD (degenerative disc disease), cervical [M50.*08/15/2015 02/10/2017 Primary hypertension [I10] 06/03/2016 Asthma [J45.909] 02/15/2019 Hyperlipidemia [E78.5] 02/15/2019 Age-related osteoporosis without current pathol*08/28/2021 Hypoxemia [R09.02] 05/01/2021 08/25/2023 Lung nodule [R91.1] 05/12/2021 Elevated blood pressure reading [R03.0] 05/03/2022 08/25/2023 Chronic respiratory failure with hypoxia (HCC) *11/05/2022 Duodenal ulcer [K26.9] 06/30/2023 Paroxysmal atrial fibrillation (HCC) [I48.0] 06/30/2023 Pneumonia due to infectious organism [J18.9] 06/30/2023 04/12/2024 Anemia requiring transfusions [D64.9] 07/01/2023 Acute on chronic hypoxic respiratory failure (H*07/09/2023 08/25/2023 Empyema (HCC) [J86.9] 07/09/2023 08/25/2023 Dysphagia [R13.10] 07/09/2023 Shock, septic (HCC) [A41.9, R65.21] 07/11/2023 08/25/2023 Antibiotic-associated diarrhea [K52.1, T36.95XA]07/14/2023 04/12/2024 (more content not included)... Normal [facility] Yudith 09-24-2024 CNPN Telephone (INTMWS) SNEHA CARDENAS ([id number]) 1955 F Date Time Provider Department 09/24/24 JULIO DRAPER During your visit today, we recorded the following information about you: Genna Lowry RN 09/24/2024 8:29 AM Signed Nathaly from [facility] calls and reports that they received referral for patient. Nathaly reports that they are unable to see patient because patient currently is in collections with them. Patient will have to be referral to someone else. JAMI Cannon Elizabeth, MA 09/24/2024 9:25 AM Signed Patient was notified and will call to get balance paid Magali Casey MA Allergies As of Date: 09/24/2024 Noted Allergy Reaction KEFLEX (CEPHALEXIN) 10/04/2005 5 - Intolerance Comments: Tachycardia, palpitations. VANCOMYCIN 06/07/2024 4 - Hives Date Reviewed: 09/04/2024 Reviewed by: Jean-Pierre Vitale APRN.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 - Fully Assessed Reason for Visit: Referral Update [Other] Prescriptions as of 09/24/2024 - HYDROcodone-acetaminop hen (NORCO) 5-325 mg per tablet Take 1 tablet by mouth every 8 hours as needed for pain for up to 5 days. - predniSONE (DELTASONE) 20 mg tablet Take 2 tablets by mouth once daily for 2 days, THEN 1 tablet once daily for 3 days. - alendronate (FOSAMAX) 70 mg tablet Take 1 tablet by mouth one time a week. in the AM with glass of water on empty stomach. Do not take anything else by mouth or lie down for 30 min - Lactobacillus combination no.8 (ADULT PROBIOTIC ORAL) Take 1 capsule by mouth once daily. - fluticasone-umeclidin- vilanter (TRELEGY ELLIPTA) 200-62.5-25 mcg inhalation powder Inhale 1 Puff as instructed once daily. - ondansetron orally disintegrating (ZOFRAN ODT) 4 mg disintegrating tablet Take 1 tablet by mouth every 8 hours as needed for nausea/vomiting. - benzonatate (TESSALON PERLE) 100 mg capsule Take 2 capsules by mouth three times a day as needed for cough. - azithromycin (ZITHROMAX) 250 mg tablet Take 1 tablet by mouth once daily. - guaiFENesin (ROBITUSSIN) 100 mg/5 mL syrup Take 30 mL by mouth two times a day. - isosorbide mononitrate ER (IMDUR) 60 mg 24 hr tablet Take 1 tablet by mouth once daily. - montelukast (SINGULAIR) 10 mg tablet Take 1 tablet by mouth daily at bedtime. - sucralfate (CARAFATE) 1 gram tablet Take 1 tablet by mouth two times a day. - pantoprazole DR (PROTONIX) 40 mg tablet Take 1 tablet by mouth once daily. - albuterol HFA (PROAIR HFA) 90 mcg/actuation inhaler Inhale 2 Puffs as instructed every 4 hours as needed for wheezing/shortness of breath. - atorvastatin (LIPITOR) 40 mg tablet Take 1 tablet by mouth daily at bedtime. For cholesterol. - busPIRone (BUSPAR) 10 mg tablet Take 1 tablet by mouth two times a day. - fluticasone (FLONASE) 50 mcg/actuation nasal spray Use 2 Sprays in each nostril once daily. Rinse mouth after use. - OXYGEN, HOME THERAPY, Inhale 3 L/min as instructed as directed. 3L NC continuous, up to 4L with exertion - acetaminophen (TYLENOL) 325 mg tablet Take 650 mg by mouth every 6 hours as needed. - nitroglycerin sublingual (NITROSTAT) 0.4 mg SL tablet Dissolve 0.4 mg under the tongue every 5 minutes as needed for chest pain. - polyethylene glycol 3350 (MIRALAX) 17 gram/dose powder Take 17 g by mouth as needed for constipation. Dissolve dose in 4 - 8 ounces of liquid and take as directed. - ipratropium-albuterol (DUONEB) 0.5 mg-3 mg(2.5 mg base)/3 mL nebu Inhale 3 mL as instructed every 4 hours as needed for wheezing/shortness of breath. Problem List As Of Date 09/24/2024 Noted Resolved Tobacco use disorder [F17.200] 11/02/2007 02/10/2017 Essential tremor [G25.0] 11/02/2007 Other specified disorder of gallbladder [K82.8] 12/11/2007 07/20/2012 Unspecified gastritis and gastroduodenitis with*02/09/2010 07/15/2015 Blood in stool [K92.1] 02/09/2010 07/20/2012 Loss of weight [R63.4] 02/09/2010 07/20/2012 Upper GI bleed [K92.2] 02/09/2010 04/12/2024 Acute gastritis without mention of hemorrhage [*02/09/2010 07/20/2012 Essential hypertension, benign [I10] 05/17/2011 07/15/2015 Migraine headache [G43.909] 07/15/2015 Irritable bowel syndrome [K58.9] 07/15/2015 Scoliosis [M41.9] 02/10/2017 Environmental allergies [Z91.09] History of colon polyps [Z86.0100] 07/15/2015 Chronic obstructive pulmonary disease (HCC) [J4*07/25/2012 Cervical disc disorder with radiculopathy [M50.*08/15/2015 02/10/2017 DDD (degenerative disc disease), cervical [M50.*08/15/2015 02/10/2017 Primary hypertension [I10] 06/03/2016 Asthma [J45.909] 02/15/2019 Hyperlipidemia [E78.5] 02/15/2019 Age-related osteoporosis without current pathol*08/28/2021 Hypoxemia [R09.02] 05/01/2021 08/25/2023 Lung nodule [R91.1] 05/12/2021 Elevated blood pressure reading [R03.0] 05/03/2022 08/25/2023 Chronic respiratory failure with hypoxia (HCC) *11/05/2022 Duoden (more content not included)... Normal [facility] CBC panel Auto (Bld)on 09-20 Erythrocyte distribution width (RBC) [Ratio] 16.6 % High 11.5-15.0 [facility] Comment on above: Order Comment: Speci men Type: BLOOD SPECIMENOrdering Facility: [facility] Address: [address] [place] [address] Performed By: #### 5 8410-2, 4537-7 ####[facility] LABCLIA [id number] [place] [address] [place] Hematocrit (Bld) [Volume fraction] 31.4 % Low 36.0-46.0 [facility] Comment on above: Order Comment: Speci men Type: BLOOD SPECIMENOrdering Facility: [facility] Address: [address] [place] [address] Performed By: #### 5 8410-2, 4537-7 ####[facility] LABCLIA [id number] [place] [address] [place] Hemoglobin (Bld) [Mass/Vol] 9.5 g/dL Low 11.5-15.5 [facility] Comment on above: Order Comment: Speci men Type: BLOOD SPECIMENOrdering Facility: [facility] Address: [address] [place] [address] Performed By: #### 5 8410-2, 4537-7 ####[facility] LABIA [id number] [place] [address] [place] MCH (RBC) [Entitic mass] 30.9 pg Normal 26.0-34.0 [facility] Comment on above: Order Comment: Speci men Type: BLOOD SPECIMENOrdering Facility: [facility] Address: [address] [place] [address] Performed By: #### 5 8410-2, 4537-7 ####[facility] LABIA [id number] [place] [address] [place] MCHC (RBC) [Mass/Vol] 30.3 g/dL Low 30.5-36.0 [facility] Comment on above: Order Comment: Speci men Type: BLOOD SPECIMENOrdering Facility: [facility] Address: [address] [place] [address] Performed By: #### 5 8410-2, 4537-7 ####[facility] LABIA [id number] [place] [address] [place] MCV (RBC) [Entitic vol] 102.3 fL High 80.0-100.0 C [facility] Comment on above: Order Comment: Speci men Type: BLOOD SPECIMENOrdering Facility: [facility] Address: [address] [place] [address] Performed By: #### 5 8410-2, 4537-7 ####[facility] LABIA [id number] [place] [id number] [place] Nucleated RBC (Bld) [#/Vol] 10*3/uL Normal <0.01 [facility] Comment on above: Order Comment: Speci men Type: BLOOD SPECIMENOrdering Facility: [facility] Address: [address] [place] [address] Performed By: #### 5 8410-2, 453-7 ####[facility] LABIA [id number] [place] [id number] [place] Platelet mean volume (Bld) [Entitic vol] 9.1 fL Normal 9.0-12.7 [facility] Comment on above: Order Comment: Speci men Type: BLOOD SPECIMENOrdering Facility: [facility] Address: [address] [place] [address] Performed By: #### 5 8410-2, 4536-7 ####[facility] LABIA [id number] [place] [id number] [place] Platelets (Bld) [#/Vol] 420 10*3/uL High 150-400 [facility] Comment on above: Order Comment: Speci men Type: BLOOD SPECIMENOrdering Facility: [facility] Address: [address] [place] [address] Performed By: #### 5 8410-2, 4536-7 ####[facility] LABIA [id number] [address] [address] [place] RBC (Bld) [#/Vol] 3.07 10*6/uL Low 3.90-5.20 [facility] Comment on above: Order Comment: Speci men Type: BLOOD SPECIMENOrdering Facility: [facility] Address: [address] [place] [address] Performed By: #### 5 8410-2, 4537-7 ####[facility] LABCLIA [id number] [place] [id number] [place] WBC (Bld) [#/Vol] 9.93 10*3/uL Normal 3.70-11.00 [facility] Comment on above: Order Comment: Speci men Type: BLOOD SPECIMENOrdering Facility: [facility] Address: [address] [place] [address] Performed By: #### 5 8410-2, 45377 ####[facility] LABCLIA [id number] [place] [id number] [place] CNPKalpana 09-20-2024 CNPN Telephone (INTMWS) SNEHA CARDENAS ([id number]) 1955 F Date Time Provider Department 09/20/24 JULIO DRAPER INTWS During your visit today, we recorded the following information about you: Ericka Chrisotpher LPN 09/20/2024 12:07 PM Signed Pt brought in disability forms for pcp to complete. They have been completed before. It is requested to be done again due by 10/02/24. To pcp to review. Did print last ones that were completed. Ericka Christopher LPN 09/25/2024 11:15 AM Signed Pcp has completed this form. There is no fax number on it. They want 6 months of office notes. Pt notified. She will call them and get a fax number for the office to fax back to. She will call back with this info. Carol Sosa, RN 09/25/2024 12:11 PM Signed Patient calls back and reports she doesn't have a fax number so she will have to pick forms up in medical records so that she can mail forms overnight so they receive them by October 02, 2024. Please call patient at [phone] when patient can pick forms/papers up. JAMI Lee Janice, LPN 09/25/2024 12:40 PM Signed These will be in medical records today by 1 pm. Pt notified. Did also copy form completed for pts records here. Allergies As of Date: 09/20/2024 Noted Allergy Reaction KEFLEX (CEPHALEXIN) 10/04/2005 5 - Intolerance Comments: Tachycardia, palpitations. VANCOMYCIN 06/07/2024 4 - Hives Date Reviewed: 09/04/2024 Reviewed by: Jean-Pierre Vitale APRN.[employer] C[employer]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 - Fully Assessed Reason for Visit: Forms [423] Cmt: Disability forms from [employer] Prescriptions as of 09/25/2024 - alendronate (FOSAMAX) 70 mg tablet Take 1 tablet by mouth one time a week. in the AM with glass of water on empty stomach. Do not take anything else by mouth or lie down for 30 min - Lactobacillus combination no.8 (ADULT PROBIOTIC ORAL) Take 1 capsule by mouth once daily. - fluticasone-umeclidin- vilanter (TRELEGY ELLIPTA) 200-62.5-25 mcg inhalation powder Inhale 1 Puff as instructed once daily. - ondansetron orally disintegrating (ZOFRAN ODT) 4 mg disintegrating tablet Take 1 tablet by mouth every 8 hours as needed for nausea/vomiting. - benzonatate (TESSALON PERLE) 100 mg capsule Take 2 capsules by mouth three times a day as needed for cough. - azithromycin (ZITHROMAX) 250 mg tablet Take 1 tablet by mouth once daily. - guaiFENesin (ROBITUSSIN) 100 mg/5 mL syrup Take 30 mL by mouth two times a day. - isosorbide mononitrate ER (IMDUR) 60 mg 24 hr tablet Take 1 tablet by mouth once daily. - montelukast (SINGULAIR) 10 mg tablet Take 1 tablet by mouth daily at bedtime. - sucralfate (CARAFATE) 1 gram tablet Take 1 tablet by mouth two times a day. - pantoprazole DR (PROTONIX) 40 mg tablet Take 1 tablet by mouth once daily. - albuterol HFA (PROAIR HFA) 90 mcg/actuation inhaler Inhale 2 Puffs as instructed every 4 hours as needed for wheezing/shortness of breath. - atorvastatin (LIPITOR) 40 mg tablet Take 1 tablet by mouth daily at bedtime. For cholesterol. - busPIRone (BUSPAR) 10 mg tablet Take 1 tablet by mouth two times a day. - fluticasone (FLONASE) 50 mcg/actuation nasal spray Use 2 Sprays in each nostril once daily. Rinse mouth after use. - OXYGEN, HOME THERAPY, Inhale 3 L/min as instructed as directed. 3L NC continuous, up to 4L with exertion - acetaminophen (TYLENOL) 325 mg tablet Take 650 mg by mouth every 6 hours as needed. - nitroglycerin sublingual (NITROSTAT) 0.4 mg SL tablet Dissolve 0.4 mg under the tongue every 5 minutes as needed for chest pain. - polyethylene glycol 3350 (MIRALAX) 17 gram/dose powder Take 17 g by mouth as needed for constipation. Dissolve dose in 4 - 8 ounces of liquid and take as directed. - ipratropium-albuterol (DUONEB) 0.5 mg-3 mg(2.5 mg base)/3 mL nebu Inhale 3 mL as instructed every 4 hours as needed for wheezing/shortness of breath. Problem List As Of Date 09/20/2024 Noted Resolved Tobacco use disorder [F17.200] 11/02/2007 02/10/2017 Essential tremor [G25.0] 11/02/2007 Other specified disorder of gallbladder [K82.8] 12/11/2007 07/20/2012 Unspecified gastritis and gastroduodenitis with*02/09/2010 07/15/2015 Blood in stool [K92.1] 02/09/2010 07/20/2012 Loss of weight [R63.4] 02/09/2010 07/20/2012 Upper GI bleed [K92.2] 02/09/2010 04/12/2024 Acute gastritis without mention of hemorrhage [*02/09/2010 07/20/2012 Essential hypertension, benign [I10] 05/17/2011 07/15/2015 Migraine headache [G43.909] 07/15/2015 Irritable bowel syndrome [K58.9] 07/15/2015 Scoliosis [M41.9] 02/10/2017 Environmental allergies [Z91.09] History of colon polyps [Z86.0100] 07/15/2015 Chronic obstructive pulmonary disease (HCC) [J4*07/25/2012 Cervical disc disorder with radiculopathy [M50.*08/15/2015 02/10/2017 DDD (degenerative disc disease), cervical [M50.*08/15/2015 02/10/2017 Primary hypertension [I10] 06/03/20 (more content not included)... Normal [facility] D dimer FEU PPP-mCncon 09-20 Fibrin D-dimer FEU (PPP) [Mass/Vol] 500 ng/mL FEU High <500 [facility] Comment on above: Order Comment: Speci men Type: BLOOD SPECIMENOrdering Facility: [facility] Address: [address] [place] [address] Result Comment: Ebony en Plasma Aliquot Performed By: #### 4 8065-7 ####[facility] LABIA [id number] [place] [address] [place] ESR Westergren method (Bld) [Velocity]on 09-20-2024 ESR (Bld) [Velocity] 63 mm/h High 0-20 [facility] Comment on above: Order Comment: Speci men Type: BLOOD SPECIMENOrdering Facility: [facility] Address: [address] [place] [address] Performed By: #### 5 8410-2, 4537-7 ####[facility] LABIA [id number] [place] [address] [place] Fibrin D-dimer FEU (PPP) [Ma ss/Vol]on 09-20-2024 D DIMER AGE-RELATED CUTOFF 680 ng/mL FEU Normal [facility] Comment on above: Order Comment: Speci men Type: BLOOD SPECIMENOrdering Facility: [facility] Address: [address] [place] [address] Performed By: #### 4 8065-7 ####[facility] LABIA [id number] [place] [id number] [place] MR/BMS[facility]-20[facility]24 [facility] Office Visit (INTMWS ) SNEHA CARDENAS ([id number]) 1955 F Date Time Provider Department 09/19/24 4:40 PM JULIO DRAPER INTMWS During your visit today, we recorded the following information about you: Temperature Pulse Blood pressure Weight 97.6 degrees 100/minute 110/58 59 kg Julio Draper MD 09/20/2024 7:03 AM Signed This note was created using [employer]. Subjective Patient presents with: ER F/U Sneha Cardenas is a 69 year old female, who developed right shoulder pain, severe 3 days ago after dialysis. Pain was aggravated by movement, and local pressure. She had no shoulder injury or strain. She went to the ER 09/17/24 where her shoulder xray showed intact hardware with no acute disease. She was prescribed tramadol with little relief. She just completed an extended steroid taper more than 1 week ago. She also had her dialysis catheter removed earlier this month, and has a vascular surgery follow up tomorrow. Review of Systems Constitutional: Negative for chills and fever. Respiratory: Negative for cough and chest tightness. Cardiovascular: Negative for chest pain and palpitations. Gastrointestinal: Negative for nausea and vomiting. Musculoskeletal: Negative for neck pain and neck stiffness. Neurological: Negative for weakness, numbness and headaches. ACTIVE PROBLEM LIST Essential Tremor Environmental Allergies Chronic Obstructive Pulmonary Disease (Hcc) Primary Hypertension Hyperlipidemia Age-Related Osteoporosis Without Current Pathological Fracture Lung Nodule Chronic Respiratory Failure With Hypoxia (Hcc) Duodenal Ulcer Paroxysmal Atrial Fibrillation (Hcc) Anemia Requiring Transfusions Dysphagia Former Smoker Nstemi (Non-St Elevated Myocardial Infarction) (Hcc) Pleural Effusion Malnutrition of Mild Degree (Hcc) Esrd (End Stage Renal Disease) (Hcc) Coronary Artery Disease Anxiety About Health Social History Tobacco Use Smoking status: Former Current packs/day: 0.00 Average packs/day: 0.5 packs/day for 42.0 years (21.0 ttl pk-yrs) Types: Cigarettes Start date: 1974 Quit date: 05/23/2016 Years since quittin.3 Smokeless tobacco: Never Tobacco comments: Resumed short period. Quit for good 05/2016. Vaping Use Vaping status: Never Used Substance Use Topics Alcohol use: No Drug use: No Current Outpatient Medications Medication Sig alendronate (FOSAMAX) 70 mg tablet Take 1 tablet by mouth one time a week. in the AM with glass of water on empty stomach. Do not take anything else by mouth or lie down for 30 min Lactobacillus combination no.8 (ADULT PROBIOTIC ORAL) Take 1 capsule by mouth once daily. fluticasone-umeclidin- vilanter (TRELEGY ELLIPTA) 200-62.5-25 mcg inhalation powder Inhale 1 Puff as instructed once daily. ondansetron orally disintegrating (ZOFRAN ODT) 4 mg disintegrating tablet Take 1 tablet by mouth every 8 hours as needed for nausea/vomiting. benzonatate (TESSALON PERLE) 100 mg capsule Take 2 capsules by mouth three times a day as needed for cough. azithromycin (ZITHROMAX) 250 mg tablet Take 1 tablet by mouth once daily. guaiFENesin (ROBITUSSIN) 100 mg/5 mL syrup Take 30 mL by mouth two times a day. isosorbide mononitrate ER (IMDUR) 60 mg 24 hr tablet Take 1 tablet by mouth once daily. montelukast (SINGULAIR) 10 mg tablet Take 1 tablet by mouth daily at bedtime. sucralfate (CARAFATE) 1 gram tablet Take 1 tablet by mouth two times a day. pantoprazole DR (PROTONIX) 40 mg tablet Take 1 tablet by mouth once daily. albuterol HFA (PROAIR HFA) 90 mcg/actuation inhaler Inhale 2 Puffs as instructed every 4 hours as needed for wheezing/shortness of breath. atorvastatin (LIPITOR) 40 mg tablet Take 1 tablet by mouth daily at bedtime. For cholesterol. busPIRone (BUSPAR) 10 mg tablet Take 1 tablet by mouth two times a day. fluticasone (FLONASE) 50 mcg/actuation nasal spray Use 2 Sprays in each nostril once daily. Rinse mouth after use. OXYGEN, HOME THERAPY, Inhale 3 L/min as instructed as directed. 3L NC continuous, up to 4L with exertion acetaminophen (TYLENOL) 325 mg tablet Take 650 mg by mouth every 6 hours as needed. nitroglycerin sublingual (NITROSTAT) 0.4 mg SL tablet Dissolve 0.4 mg under the tongue every 5 minutes as needed for chest pain. polyethylene glycol 3350 (MIRALAX) 17 gram/dose powder Take 17 g by mouth as needed for constipation. Dissolve dose in 4 - 8 ounces of liquid and take as directed. ipratropium-albuterol (DUONEB) 0.5 mg-3 mg(2.5 mg base)/3 mL nebu Inhale 3 mL as instructed every 4 hours as needed for wheezing/shortness of breath. No current facility-administered medications for this visit. Objective BP 110/58 (BP Site: Right Arm, BP Position: Sitting, BP Cuff Size: Large Adult) Pulse 100 Temp 36.4 ?C (97.6 ?F) (Temporal) Wt 59 kg (130 lb) BMI 22.66 kg/m? Phy (more content not included)... Normal [facility] Emergency Department Summary on 09-17-2024 Emergency Department Summary Normal [facility] Shoulder min 2 Viewson 09-17 Shoulder min 2 Views [facility] SNE[facility] CARDE[facility] ([id number]) 1955 F Date Time Provider Department 09/07/24 JULIO DRAPER INTMWS During your visit today, we recorded the following information about you: Carol Sosa RN 09/07/2024 2:50 PM Signed Richi PT with [facility] calls to let provider know that patient had dialysis fistula replaced and requested to move PT eval visit to next Tuesday09/11/2024. Ok given per patient request. Nothing further needed closing encounter. JAMI Lee Victor H, MD 09/09/2024 10:59 AM Signed The following approved medication requests have been transmitted electronically. Requested Prescriptions Signed Prescriptions Disp Refills alendronate (FOSAMAX) 70 mg tablet 12 tablet 3 Sig: Take 1 tablet by mouth one time a week. in the AM with glass of water on empty stomach. Do not take anything else by mouth or lie down for 30 min Authorizing Provider: JULIO DRAPER MD Velasquez, Victor H, MD 09/09/2024 10:59 AM Signed Addended by: JULIO DRAPER on: 09/09/2024 10:59 AM Modules accepted: Orders Allergies As of Date: 09/07/2024 Noted Allergy Reaction KEFLEX (CEPHALEXIN) 10/04/2005 5 - Intolerance Comments: Tachycardia, palpitations. 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 in the AM with glass of water on empty stomach. Do not take anything else by mouth or lie down for 30 minDisp: 12 tabletRfl: 3 Prescriptions as of 09/09/2024 - alendronate (FOSAMAX) 70 mg tablet Take 1 tablet by mouth one time a week. in the AM with glass of water on empty stomach. Do not take anything else by mouth or lie down for 30 min - Lactobacillus combination no.8 (ADULT PROBIOTIC ORAL) Take 1 capsule by mouth once daily. - fluticasone-umeclidin- vilanter (TRELEGY ELLIPTA) 200-62.5-25 mcg inhalation powder Inhale 1 Puff as instructed once daily. - predniSONE (DELTASONE) 10 mg tablet Take 10 mg by mouth once daily. See Taper PO daily x28 days - ondansetron orally disintegrating (ZOFRAN ODT) 4 mg disintegrating tablet Take 1 tablet by mouth every 8 hours as needed for nausea/vomiting. - benzonatate (TESSALON PERLE) 100 mg capsule Take 2 capsules by mouth three times a day as needed for cough. - azithromycin (ZITHROMAX) 250 mg tablet Take 1 tablet by mouth once daily. - guaiFENesin (ROBITUSSIN) 100 mg/5 mL syrup Take 30 mL by mouth two times a day. - isosorbide mononitrate ER (IMDUR) 60 mg 24 hr tablet Take 1 tablet by mouth once daily. - montelukast (SINGULAIR) 10 mg tablet Take 1 tablet by mouth daily at bedtime. - sucralfate (CARAFATE) 1 gram tablet Take 1 tablet by mouth two times a day. - pantoprazole DR (PROTONIX) 40 mg tablet Take 1 tablet by mouth once daily. - albuterol HFA (PROAIR HFA) 90 mcg/actuation inhaler Inhale 2 Puffs as instructed every 4 hours as needed for wheezing/shortness of breath. - atorvastatin (LIPITOR) 40 mg tablet Take 1 tablet by mouth daily at bedtime. For cholesterol. - busPIRone (BUSPAR) 10 mg tablet Take 1 tablet by mouth two times a day. - fluticasone (FLONASE) 50 mcg/actuation nasal spray Use 2 Sprays in each nostril once daily. Rinse mouth after use. - OXYGEN, HOME THERAPY, Inhale 3 L/min as instructed as directed. 3L NC continuous, up to 4L with exertion - acetaminophen (TYLENOL) 325 mg tablet Take 650 mg by mouth every 6 hours as needed. - nitroglycerin sublingual (NITROSTAT) 0.4 mg SL tablet Dissolve 0.4 mg under the tongue every 5 minutes as needed for chest pain. - polyethylene glycol 3350 (MIRALAX) 17 gram/dose powder Take 17 g by mouth as needed for constipation. Dissolve dose in 4 - 8 ounces of liquid and take as directed. - ipratropium-albuterol (DUONEB) 0.5 mg-3 mg(2.5 mg base)/3 mL nebu Inhale 3 mL as instructed every 4 hours as needed for wheezing/shortness of breath. Problem List As Of Date 09/07/2024 Noted Resolved Tobacco use disorder [F17.200] 11/02/2007 02/10/2017 Essential tremor [G25.0] 11/02/2007 Other specified disorder of gallbladder [K82.8] 12/11/2007 07/20/2012 Unspecified gastritis and gastroduodenitis with*02/09/2010 07/15/2015 Blood in stool [K92.1] 02/09/2010 07/20/2012 Loss of weight [R63.4] 02/09/2010 07/20/2012 Upper GI bleed [K92.2] 02/09/2010 04/12/2024 Acute gastritis without mention of hemorrhage [*02/09/2010 07/20/2012 Essential hypertension, benign [I10] 05/17/2011 07/15/2015 Migraine headache [G43.909] 07/15/2015 Irritable bowel syndrome [K58.9] 07/15/2015 Scoliosis [M41.9] 02/10/2017 Environmental allergies [Z91.09] History of colon po (more content not included)... Normal [facility] CNPN Telephone ([employer]) SNEHA CARDENAS ([id number]) 1955 F Date Time Provider Department 09/07/24 JULIO DRAPER [employer] During your visit today, we recorded the following information about you: Lorna Angel, RN 09/07/2024 2:48 PM Signed Nelson with [facility] is calling to information pcp that they have re certified patient with group home for once weekly visits for the next 3 weeks and then they will re-evaluate. Allergies As of Date: 09/07/2024 Noted Allergy Reaction KEFLEX (CEPHALEXIN) 10/04/2005 5 - Intolerance Comments: Tachycardia, palpitations. VANCOMYCIN 06/07/2024 4 - Hives Date Reviewed: 09/04/2024 Reviewed by: Jean-Pierre Vitale APRN.[employer] C[employer]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 - Fully Assessed Reason for Visit: FYI-No Action Needed [265] Cmt: home health recert Prescriptions as of 09/07/2024 - Lactobacillus combination no.8 (ADULT PROBIOTIC ORAL) Take 1 capsule by mouth once daily. - fluticasone-umeclidin- vilanter (TRELEGY ELLIPTA) 200-62.5-25 mcg inhalation powder Inhale 1 Puff as instructed once daily. - predniSONE (DELTASONE) 10 mg tablet Take 10 mg by mouth once daily. See Taper PO daily x28 days - ondansetron orally disintegrating (ZOFRAN ODT) 4 mg disintegrating tablet Take 1 tablet by mouth every 8 hours as needed for nausea/vomiting. - benzonatate (TESSALON PERLE) 100 mg capsule Take 2 capsules by mouth three times a day as needed for cough. - azithromycin (ZITHROMAX) 250 mg tablet Take 1 tablet by mouth once daily. - guaiFENesin (ROBITUSSIN) 100 mg/5 mL syrup Take 30 mL by mouth two times a day. - isosorbide mononitrate ER (IMDUR) 60 mg 24 hr tablet Take 1 tablet by mouth once daily. - montelukast (SINGULAIR) 10 mg tablet Take 1 tablet by mouth daily at bedtime. - sucralfate (CARAFATE) 1 gram tablet Take 1 tablet by mouth two times a day. - pantoprazole DR (PROTONIX) 40 mg tablet Take 1 tablet by mouth once daily. - albuterol HFA (PROAIR HFA) 90 mcg/actuation inhaler Inhale 2 Puffs as instructed every 4 hours as needed for wheezing/shortness of breath. - atorvastatin (LIPITOR) 40 mg tablet Take 1 tablet by mouth daily at bedtime. For cholesterol. - busPIRone (BUSPAR) 10 mg tablet Take 1 tablet by mouth two times a day. - fluticasone (FLONASE) 50 mcg/actuation nasal spray Use 2 Sprays in each nostril once daily. Rinse mouth after use. - OXYGEN, HOME THERAPY, Inhale 3 L/min as instructed as directed. 3L NC continuous, up to 4L with exertion - acetaminophen (TYLENOL) 325 mg tablet Take 650 mg by mouth every 6 hours as needed. - nitroglycerin sublingual (NITROSTAT) 0.4 mg SL tablet Dissolve 0.4 mg under the tongue every 5 minutes as needed for chest pain. - polyethylene glycol 3350 (MIRALAX) 17 gram/dose powder Take 17 g by mouth as needed for constipation. Dissolve dose in 4 - 8 ounces of liquid and take as directed. - ipratropium-albuterol (DUONEB) 0.5 mg-3 mg(2.5 mg base)/3 mL nebu Inhale 3 mL as instructed every 4 hours as needed for wheezing/shortness of breath. Problem List As Of Date 09/07/2024 Noted Resolved Tobacco use disorder [F17.200] 11/02/2007 02/10/2017 Essential tremor [G25.0] 11/02/2007 Other specified disorder of gallbladder [K82.8] 12/11/2007 07/20/2012 Unspecified gastritis and gastroduodenitis with*02/09/2010 07/15/2015 Blood in stool [K92.1] 02/09/2010 07/20/2012 Loss of weight [R63.4] 02/09/2010 07/20/2012 Upper GI bleed [K92.2] 02/09/2010 04/12/2024 Acute gastritis without mention of hemorrhage [*02/09/2010 07/20/2012 Essential hypertension, benign [I10] 05/17/2011 07/15/2015 Migraine headache [G43.909] 07/15/2015 Irritable bowel syndrome [K58.9] 07/15/2015 Scoliosis [M41.9] 02/10/2017 Environmental allergies [Z91.09] History of colon polyps [Z86.0100] 07/15/2015 Chronic obstructive pulmonary disease (HCC) [J4*07/25/2012 Cervical disc disorder with radiculopathy [M50.*08/15/2015 02/10/2017 DDD (degenerative disc disease), cervical [M50.*08/15/2015 02/10/2017 Primary hypertension [I10] 06/03/2016 Asthma [J45.909] 02/15/2019 Hyperlipidemia [E78.5] 02/15/2019 Age-related osteoporosis without current pathol*08/28/2021 Hypoxemia [R09.02] 05/01/2021 08/25/2023 Lung nodule [R91.1] 05/12/2021 Elevated blood pressure reading [R03.0] 05/03/2022 08/25/2023 Chronic respiratory failure with hypoxia (HCC) *11/05/2022 Duodenal ulcer [K26.9] 06/30/2023 Paroxysmal atrial fibrillation (HCC) [I48.0] 06/30/2023 Pneumonia due to infectious organism [J18.9] 06/30/2023 04/12/2024 Anemia requiring transfusions [D64.9] 07/01/2023 Acute on chronic hypoxic respiratory failure (H*07/09/2023 08/25/2023 Empyema (HCC) [J86.9] 07/09/2023 08/25/2023 Dysphagia [R13.10] 07/09/2023 Shock, septic (HCC) [A41.9, R65.21] 07/11/2023 08/25/2023 Antibiotic-associated diarrhea [K52.1, T36.95XA]07/14/2023 04/12/2024 Pulmonary emphysema (HCC) [J43.9] 07/19/202304/03 (more content not included)... 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 Current therapy with Trelegy Ellipta and PRN Albuterol. She presents today for follow-up. RONALD 06/07/2024 for follow-up imaging which shows a GCO that is highly suspicious for adenocarcinoma. Has follow-up CT scheduled in November. Since her last visit, she has had multiple hospital admissions related to breathing issues. - 07/08 for RSV and Pneumonia - 07/23 for sepsis and hypoxic respiratory failure - 08/06-08/10 for COPD exacerbation, rt pleural effusion, RSV. Treated with Doxycycline and Prednisone taper. Started on prophylactic Azithromycin by PCP. Feels like this has helped overall with symptoms. She also still has one more week of her Prednisone taper. Today, she reports overall weakness and fatigue. Respiratory symptoms have made good improvement. Patient denies cough. No wheezing. No dyspnea at rest. Exertional dyspnea with minimal exertion (walking 20 feet at times). Per her , she doesn't have much stamina d/t multiple hospitalizations. She has lost 20 lbs with being in the hospital. Reports normal appetite at this time. PRN treatments once a week. DME: [employer] 3L at rest and nocturnal 4L with exertion PAST MEDICAL HISTORY Diagnosis Date Age-related osteoporosis without current pathological fracture 08/28/2021 EARNEST (acute kidney injury) ([facility]) EARNEST (acute kidney injury) ([facility]) Anemia requiring transfusions 06/15/2023 Antibiotic-associated diarrhea 07/14/2023 Asthma Benign essential tremor Chronic obstructive pulmonary disease ([facility]) 07/25/2012 Chronic respiratory failure with hypoxia ([facility]) 11/05/2022 Coagulation defect, unspecified ([facility]) 08/25/2023 COPD (chronic obstructive pulmonary disease) ([facility]) 07/25/2012 FEV1 0.84L (32%), 10/18/2014 Coronary artery disease 08/19/2023 DDD (degenerative disc disease), cervical 08/15/2015 Empyema ([facility]) 07/09/2023 Environmental allergies Wheezes with hay or dust ESRD (end stage renal disease) ([facility]) Essential and other specified forms of tremor 11/02/2007 Benign essential -- started primidone 06/03/09, Dr. Nguyễn Essential tremor 11/02/2007 Benign essential -- started primidone 06/03/09, Dr. Nguyễn Gastrointestinal hemorrhage associated with peptic ulcer 08/02/2023 Hemodialysis catheter malfunction ([facility]) 08/19/2023 History of colon polyps 2009 Tubular adenoma. Hypertension Hypoxemia 05/01/2021 Post Covid pneumonia. Irritable bowel syndrome Lung nodule Migraine headache Improved with primidone Multiple duodenal ulcers 06/30/2023 NSTEMI (non-ST elevated myocardial infarction) ([facility]) 07/20/2023 Parapneumonic effusion Pneumonia due to COVID-19 virus 05/01/2021 Pneumonia due to infectious organism 06/30/2023 Pulmonary emphysema ([facility]) 07/19/2023 Scoliosis Shock, septic ([facility]) 07/11/2023 Snoring Tobacco use disorder Quit 03/04/2015. Unspecified gastritis and gastroduodenitis without mention of hemorrhage 02/09/2010 Small ulcer on EGD 2009 Upper GI bleed 02/09/2010 Allergies: Keflex [Cephalexin] Intolerance Comment:Tachycardia, palpitations. Vancomycin Hives Medication List Accurate as of September 04, 2024 8:19 AM. If you have any questions, ask your nurse or doctor. CONTINUE taking these medications acetaminophen 325 mg tablet Commonly known as: TYLENOL albuterol HFA 90 mcg/actuation inhaler Commonly known as: PROAIR HFA Inhale 2 Puffs as instructed every 4 hours as needed for wheezing/shortness of breath. atorvastatin 40 mg tablet Commonly known as: LIPITOR Take 1 tablet by mouth daily at bedtime. For cholesterol. azithromycin 250 mg tablet Commonly known as: ZITHROMAX Take 1 tablet by mouth once daily. benzonatate 100 mg capsule Commonly known as: TESSALON PERLE Take 2 capsules by mouth three times a day as needed for cough. busPIRone 10 mg tablet Commonly known as: BUSPAR Take 1 tablet by mouth two times a day. fluticasone 50 mcg/actuation nasal spray Commonly known as: FLONASE Use 2 Sprays in each nostril once daily. Rinse mouth after use. guaiFENesin 100 mg/5 mL syrup Commonly known as: (more content not included)... Normal [facility] BD DXA - AXIAL SKELETONon BD DXA - AXIAL SKELETON * * *Final Repor t* * * DATE OF EXAM: Aug 30 2024 10:24AM CHOLO Mccormick - BD DXA - AXIAL SKELETON / PROCEDURE REASON: Age-related osteoporosis without current pathological fracture * * * * Physician Interpretation * * * * EXAMINATION: DXA BONE DENSITOMETRY BD DXA - AXIAL SKELETON PATIENT DEMOGRAPHICS: Age: 69 years, Gender: Female SCANNER INFORMATION: DXA Model: [employer] C 36161 Date Scanned: 08/30/2024 10:24 AM CLINICAL HISTORY: DIAGNOSTIC Age-related osteoporosis without current pathological fracture . RISK FACTORS FOR OSTEOPOROSIS AND ASSOCIATED FRACTURES REPORTED BY THIS PATIENT: Please refer to Bone Health Questionnaire in the EMR CURRENT THERAPY: Please refer to Bone Health Questionnaire in the EMR TECHNICAL LIMITATIONS: None RESULTS: Lumbar spine (L1, L2, L3, L4): 0.840 g/cm2, T-score -1.9, Z-score 0.1 Lumbar spine: 2021: 0.902 g/cm2 Right Femoral Neck: 0.456 g/cm2, T-score -3.5, Z-score -1.8 Right Femoral Neck: 2021: 0.544 g/cm2 Statistically significant decrease Right Total Hip: 0.653 g/cm2, T-score -2.4, Z-score -1.0 Right Total Hip: 2021: 0.752 g/cm2 Statistically significant decrease Left Femoral Neck: 0.491 g/cm2, T-score -3.2, Z-score -1.5 Left Femoral Neck: 2021: 0.611 g/cm2 Statistically significant decrease Left Total Hip: 0.721 g/cm2, T-score -1.8, Z-score -0.4 Left Total Hip: 2021: 0.858 g/cm2 Statistically significant decrease CHANGE IS STATISTICALLY SIGNIFICANT IN THE SPINE OR HIP IF GREATER THAN OR EQUAL TO 0.04 g/cm2 VERTEBRAL FRACTURE ASSESSMENT Not performed. IMPRESSION: THE LOWEST T-SCORE IS -3.5 IN THE RIGHT HIP 1) DIAGNOSIS (based on BMD alone): OSTEOPOROSIS Caution: Medical conditions other than osteoporosis may cause low bone density, such as osteomalacia or renal osteodystrophy. Clinical correlation is necessary. 2) FRACTURE RISK (based on FRAX): 10-year absolute fracture risk: - major osteoporotic fracture = 21 % - hip fracture = 8.3 % - A diagnosis of Osteoporosis, a 10 year probability of hip fracture greater than or equal to 3% or a 10 year probability of any major osteoporosis-related fracture greater than or equal to 20% should be considered for treatment. - DXA scanner generated FRAX calculations may slightly differ from online FRAX calculations due to differences in software versions. - All recommendations and calculations are to be considered as guidelines and should not replace sound clinical judgement - Caution: Fracture risk may be increased independent of BMD in patients with corticosteroid use, age greater than 65 years, or a history of prior fragility fracture. RECOMMENDATIONS: Follow-up in 2 years or as clinically indicated. Patients that are taking corticosteroids, are transplant recipients or have hyperparathyroidism should have annual follow-up. Follow-up scans should always be done on the same machine for accurate comparison. FOR MORE INFORMATION ABOUT DIAGNOSIS AND TREATMENT: [facility]:? www.ccf.org/arthritis/ osteo National Osteoporosis Foundation:? www.nof.org International Society of Clinical Densitometry www.iscd.org Director Of Vocational Training: JING Transcribe Date/Time: Sep 03 2024 10:24A Dictated by : IBRAHIMA ANGELES MD This examination was interpreted and the report reviewed and electronically signed by: IBRAHIMA ANGELES MD on Sep 03 2024 10:28AM EST [id number] Normal [facility] CNOVon 08-14-2024 CNOV Office Visit (INTMWS ) SNEHA CARDENAS ([id number]) 1955 F Date Time Provider Department 08/14/24 11:00 AM JULIO DRAPER INTMWS During your visit today, we recorded the following information about you: Temperature Pulse Blood pressure Weight 97.3 degrees 104/minute 134/60 61.7 kg Julio Draper MD 08/14/2024 12:52 PM Signed This note was created using [employer]. Subjective Patient presents with: Hospital F/U Sneha Cardenas is a 69 year old female was here again for another hospital follow up. She was admitted 08/06 to 08/10/24 for COPD exacerbation, acute on chronic respiratory failure, right pleural effusion, suspicious right lower lobe nodule, ESRD, and anemia. She just completed antibiotic with doxycycline from the ER. She tested positive again for RSV and was discharged on a prolonged steroid taper. She is feeling better overall. She was experiencing rib pain and nausea from coughing. Review of Systems Constitutional: Negative for appetite change, chills, diaphoresis and fever. HENT: Negative for congestion. Respiratory: Positive for cough. Negative for shortness of breath and wheezing. Cardiovascular: Negative for chest pain, palpitations and leg swelling. Gastrointestinal: Negative for abdominal pain, diarrhea, nausea and vomiting. Genitourinary: Negative for difficulty urinating. Neurological: Negative for dizziness and headaches. ACTIVE PROBLEM LIST Essential Tremor Environmental Allergies Chronic Obstructive Pulmonary Disease (Hcc) Primary Hypertension Hyperlipidemia Age-Related Osteoporosis Without Current Pathological Fracture Lung Nodule Chronic Respiratory Failure With Hypoxia (Hcc) Duodenal Ulcer Paroxysmal Atrial Fibrillation (Hcc) Anemia Requiring Transfusions Dysphagia Former Smoker Nstemi (Non-St Elevated Myocardial Infarction) (Hcc) Pleural Effusion Malnutrition of Mild Degree (Hcc) Esrd (End Stage Renal Disease) (Hcc) Coronary Artery Disease Anxiety About Health Social History Tobacco Use Smoking status: Former Current packs/day: 0.00 Average packs/day: 0.5 packs/day for 42.0 years (21.0 ttl pk-yrs) Types: Cigarettes Start date: 1974 Quit date: 05/23/2016 Years since quittin.2 Smokeless tobacco: Never Tobacco comments: Resumed short period. Quit for good 05/2016. Vaping Use Vaping status: Never Used Substance Use Topics Alcohol use: No Drug use: No Current Outpatient Medications Medication Sig benzonatate (TESSALON PERLE) 100 mg capsule Take 200 mg by mouth three times a day as needed. guaiFENesin (ROBITUSSIN) 100 mg/5 mL syrup Take 30 mL by mouth two times a day. isosorbide mononitrate ER (IMDUR) 60 mg 24 hr tablet Take 1 tablet by mouth once daily. montelukast (SINGULAIR) 10 mg tablet Take 1 tablet by mouth daily at bedtime. sucralfate (CARAFATE) 1 gram tablet Take 1 tablet by mouth two times a day. pantoprazole DR (PROTONIX) 40 mg tablet Take 1 tablet by mouth once daily. albuterol HFA (PROAIR HFA) 90 mcg/actuation inhaler Inhale 2 Puffs as instructed every 4 hours as needed for wheezing/shortness of breath. atorvastatin (LIPITOR) 40 mg tablet Take 1 tablet by mouth daily at bedtime. For cholesterol. busPIRone (BUSPAR) 10 mg tablet Take 1 tablet by mouth two times a day. vzmrmfakre-pgqavhmb-mt rmoterol (BREZTRI) 160-9-4.8 mcg/actuation HFA aerosol inhaler Inhale 2 Puffs as instructed two times a day. fluticasone (FLONASE) 50 mcg/actuation nasal spray Use 2 Sprays in each nostril once daily. Rinse mouth after use. ondansetron orally disintegrating (ZOFRAN ODT) 4 mg disintegrating tablet Take 1 tablet by mouth every 8 hours as needed for nausea/vomiting. OXYGEN, HOME THERAPY, Inhale 3 L/min as instructed as directed. 3L NC continuous, up to 4L with exertion acetaminophen (TYLENOL) 325 mg tablet Take 650 mg by mouth every 6 hours as needed. nitroglycerin sublingual (NITROSTAT) 0.4 mg SL tablet Dissolve 0.4 mg under the tongue every 5 minutes as needed for chest pain. polyethylene glycol 3350 (MIRALAX) 17 gram/dose powder Take 17 g by mouth as needed for constipation. Dissolve dose in 4 - 8 ounces of liquid and take as directed. ipratropium-albuterol (DUONEB) 0.5 mg-3 mg(2.5 mg base)/3 mL nebu Inhale 3 mL as instructed every 4 hours as needed for wheezing/shortness of breath. predniSONE (DELTASONE) 10 mg tablet Take 10 mg by mouth once daily. See Taper PO daily x28 days No current facility-administered medications for this visit. Objective BP 134/60 (BP Site: Right Arm, BP Position: Sitting, BP Cuff Size: Large Adult) Pulse 104 Temp 36.3 ?C (97.3 ?F) (Temporal) Wt 61.7 kg (136 lb) BMI 23.71 kg/m? Physical Exam Constitutional: General: She is not in acute distress. Appearance: She is not diaphoretic. HENT: Head: Normocephalic. Mouth/Throat: Pharynx: Oropharynx (more content not included)... Normal [facility] CAR[facility] ([id number]) 1955 F Date Time Provider Department 08/14/24 JULIO DRAPER INTWS During your visit today, we recorded the following information about you: Carol Soas RN 08/14/2024 9:56 AM Signed Any with [facility] call to request a verbal order to move patient's PT visit this week to the end of the week per patient request instead of creating a missed visit. Call back number to Any is [phone]. JAMI Lee Naz M, APRN.[facility] 08/14/2024 12:12 PM Signed Peg Laureano APRN.Magali Sarmiento MA 08/14/2024 12:25 PM Signed Let detailed message on any confidential Magali Casey MA Allergies As of Date: 08/14/2024 Noted Allergy Reaction KEFLEX (CEPHALEXIN) 10/04/2005 5 - Intolerance Comments: Tachycardia, palpitations. VANCOMYCIN 06/07/2024 4 - Hives Date Reviewed: 08/14/2024 Reviewed by: Anushka Alexis LPN - Fully Assessed Reason for Visit: Orders [681] Prescriptions as of 08/14/2024 - predniSONE (DELTASONE) 10 mg tablet Take 10 mg by mouth once daily. See Taper PO daily x28 days - ondansetron orally disintegrating (ZOFRAN ODT) 4 mg disintegrating tablet Take 1 tablet by mouth every 8 hours as needed for nausea/vomiting. - benzonatate (TESSALON PERLE) 100 mg capsule Take 2 capsules by mouth three times a day as needed for cough. - azithromycin (ZITHROMAX) 250 mg tablet Take 1 tablet by mouth once daily. - guaiFENesin (ROBITUSSIN) 100 mg/5 mL syrup Take 30 mL by mouth two times a day. - isosorbide mononitrate ER (IMDUR) 60 mg 24 hr tablet Take 1 tablet by mouth once daily. - montelukast (SINGULAIR) 10 mg tablet Take 1 tablet by mouth daily at bedtime. - sucralfate (CARAFATE) 1 gram tablet Take 1 tablet by mouth two times a day. - pantoprazole DR (PROTONIX) 40 mg tablet Take 1 tablet by mouth once daily. - albuterol HFA (PROAIR HFA) 90 mcg/actuation inhaler Inhale 2 Puffs as instructed every 4 hours as needed for wheezing/shortness of breath. - atorvastatin (LIPITOR) 40 mg tablet Take 1 tablet by mouth daily at bedtime. For cholesterol. - busPIRone (BUSPAR) 10 mg tablet Take 1 tablet by mouth two times a day. - qvmllwvduw-uyipdnfx-yc rmoterol (BREZTRI) 160-9-4.8 mcg/actuation HFA aerosol inhaler Inhale 2 Puffs as instructed two times a day. - fluticasone (FLONASE) 50 mcg/actuation nasal spray Use 2 Sprays in each nostril once daily. Rinse mouth after use. - OXYGEN, HOME THERAPY, Inhale 3 L/min as instructed as directed. 3L NC continuous, up to 4L with exertion - acetaminophen (TYLENOL) 325 mg tablet Take 650 mg by mouth every 6 hours as needed. - nitroglycerin sublingual (NITROSTAT) 0.4 mg SL tablet Dissolve 0.4 mg under the tongue every 5 minutes as needed for chest pain. - polyethylene glycol 3350 (MIRALAX) 17 gram/dose powder Take 17 g by mouth as needed for constipation. Dissolve dose in 4 - 8 ounces of liquid and take as directed. - ipratropium-albuterol (DUONEB) 0.5 mg-3 mg(2.5 mg base)/3 mL nebu Inhale 3 mL as instructed every 4 hours as needed for wheezing/shortness of breath. Problem List As Of Date 08/14/2024 Noted Resolved Tobacco use disorder [F17.200] 11/02/2007 02/10/2017 Essential tremor [G25.0] 11/02/2007 Other specified disorder of gallbladder [K82.8] 12/11/2007 07/20/2012 Unspecified gastritis and gastroduodenitis with*02/09/2010 07/15/2015 Blood in stool [K92.1] 02/09/2010 07/20/2012 Loss of weight [R63.4] 02/09/2010 07/20/2012 Upper GI bleed [K92.2] 02/09/2010 04/12/2024 Acute gastritis without mention of hemorrhage [*02/09/2010 07/20/2012 Essential hypertension, benign [I10] 05/17/2011 07/15/2015 Migraine headache [G43.909] 07/15/2015 Irritable bowel syndrome [K58.9] 07/15/2015 Scoliosis [M41.9] 02/10/2017 Environmental allergies [Z91.09] History of colon polyps [Z86.0100] 07/15/2015 Chronic obstructive pulmonary disease (HCC) [J4*07/25/2012 Cervical disc disorder with radiculopathy [M50.*08/15/2015 02/10/2017 DDD (degenerative disc disease), cervical [M50.*08/15/2015 02/10/2017 Primary hypertension [I10] 06/03/2016 Asthma [J45.909] 02/15/2019 Hyperlipidemia [E78.5] 02/15/2019 Age-related osteoporosis without current pathol*08/28/2021 Hypoxemia [R09.02] 05/01/2021 08/25/2023 Lung nodule [R91.1] 05/12/2021 Elevated blood pressure reading [R03.0] 05/03/2022 08/25/2023 Chronic respiratory failure with hypoxia (HCC) *11/05/2022 Duodenal ulcer [K26.9] 06/30/2023 Paroxysmal atrial fibrillation (HCC) [I48.0] 06/30/2023 Pneumonia due to infectious organism [J18.9] 06/30/2023 04/12/2024 Anemia requiring transfusions [D64.9] 07/01/2023 Acute on chronic hypoxic respiratory failure (H*07/09/2023 08/25/2023 Empyema (HCC) [J86.9] 07/09/2023 08/25/2023 Dysphagia [R13.10] 07/09/2023 Shock, septic (HCC) [A41.9, R65.21] 0 (more content not included)... Normal [facility] Basic Metabolic Profile (BMP )on 08-13-2024 BUN Normal 7-18 [facility] Comment on above: Result Comment: Canc elled via OM: Order cancelled - Patient discharged Performed By: #### L 500.2500 ####[facility] [address] [place], [address] BUN/CRE Normal 10-20 [facility] Comment on above: Result Comment: Canc elled via OM: Order cancelled - Patient discharged Performed By: #### L 500.2500 ####[facility] [address] [place], [address] CA,Total Normal 8.5-10.1 [facility] Comment on above: Result Comment: Canc elled via OM: Order cancelled - Patient discharged Performed By: #### L 500.2500 ####[facility] [address] [place], [address] CL Normal 98-107 [facility] Comment on above: Result Comment: Canc elled via OM: Order cancelled - Patient discharged Performed By: #### L 500.2500 ####[facility] [address] [place], [address] CO2 Normal 21.0-32.0 [facility] Comment on above: Result Comment: Canc elled via OM: Order cancelled - Patient discharged Performed By: #### L 500.2500 ####[facility] [address] [place], [address] CREAT,SERUM Normal 0.55-1.02 [facility] Comment on above: Result Comment: Canc elled via OM: Order cancelled - Patient discharged Performed By: #### L 500.2500 ####[facility] [address] [place], [address] EST GFR Normal >60 [facility] Comment on above: Result Comment: Canc elled via OM: Order cancelled - Patient discharged Performed By: #### L 500.2500 ####[facility] [address] [place], [address] EST GFR - AA Normal >60 [facility] Comment on above: Result Comment: Canc elled via OM: Order cancelled - Patient discharged Performed By: #### L 500.2500 ####[facility] [address] [place], [address] GAP Normal 5-15 [facility] Comment on above: Result Comment: Canc elled via OM: Order cancelled - Patient discharged Performed By: #### L 500.2500 ####[facility] [address] [place], [address] GLU Normal 74-106 [facility] Comment on above: Result Comment: Canc elled via OM: Order cancelled - Patient discharged Performed By: #### L 500.2500 ####[facility] [address] [place], [address] Potassium Normal 3.5-5.1 [facility] Comment on above: Result Comment: Canc elled via OM: Order cancelled - Patient discharged Performed By: #### L 500.2500 ####[facility] [address] [place], [address] Basic Metabolic Profile (BMP) Normal 136-145 [facility] Comment on above: Result Comment: Canc elled via OM: Order cancelled - Patient discharged Performed By: #### L 500.2500 ####[facility] [address] [place], [address] CBC-Complete Blood Cnt No Di ffon 08-13-2024 HCT Normal 37-47 [facility] Comment on above: Result Comment: Canc elled via OM: Order cancelled - Patient discharged Performed By: #### L 100.0500 ####[facility] [address] [place], [address] HGB Normal 12.0-15.0 [facility] Comment on above: Result Comment: Canc elled via OM: Order cancelled - Patient discharged Performed By: #### L 100.0500 ####[facility] [address] [place], [address] MCH Normal 27.0-32.0 [facility] Comment on above: Result Comment: Canc elled via OM: Order cancelled - Patient discharged Performed By: #### L 100.0500 ####[facility] [address] [place], [address] MCHC Normal 32-36 [facility] Comment on above: Result Comment: Canc elled via OM: Order cancelled - Patient discharged Performed By: #### L 100.0500 ####[facility] [address] [place], [address] MCV Normal 81-99 [facility] Comment on above: Result Comment: Canc elled via OM: Order cancelled - Patient discharged Performed By: #### L 100.0500 ####[facility] [address] [place], [address] PLT Normal 150-450 [facility] Comment on above: Result Comment: Canc elled via OM: Order cancelled - Patient discharged Performed By: #### L 100.0500 ####[facility] [address] [place], [address] RBC Normal 4.2-5.4 [facility] Comment on above: Result Comment: Canc elled via OM: Order cancelled - Patient discharged Performed By: #### L 100.0500 ####[facility] [address] [place], [address] RDW CV Normal 11.6-14.6 [facility] Comment on above: Result Comment: Canc elled via OM: Order cancelled - Patient discharged Performed By: #### L 100.0500 ####[facility] [address] [place], [address] RDW SD Normal 35.1-43.9 [facility] Comment on above: Result Comment: Canc elled via OM: Order cancelled - Patient discharged Performed By: #### L 100.0500 ####[facility] [address] [place], [address] WBC Normal 4.4-11.0 [facility] Comment on above: Result Comment: Canc elled via OM: Order cancelled - Patient discharged Performed By: #### L 100.0500 ####[facility] [address] [place], [address] Basic Metabolic Profile (BMP )on 08-11-2024 BUN Normal 7-18 [facility] Comment on above: Result Comment: Canc elled via OM: Order cancelled - Patient discharged Performed By: #### L 500.2500 ####[facility] [address] [place], [address] BUN/CRE Normal 10-20 [facility] Comment on above: Result Comment: Canc elled via OM: Order cancelled - Patient discharged Performed By: #### L 500.2500 ####[facility] [address] [place], [address] CA,Total Normal 8.5-10.1 [facility] Comment on above: Result Comment: Canc elled via OM: Order cancelled - Patient discharged Performed By: #### L 500.2500 ####[facility] [address] [place], [address] CL Normal 98-107 [facility] Comment on above: Result Comment: Canc elled via OM: Order cancelled - Patient discharged Performed By: #### L 500.2500 ####[facility] [address] [place], [address] CO2 Normal 21.0-32.0 [facility] Comment on above: Result Comment: Canc elled via OM: Order cancelled - Patient discharged Performed By: #### L 500.2500 ####[facility] [address] [place], [address] CREAT,SERUM Normal 0.55-1.02 [facility] Comment on above: Result Comment: Canc elled via OM: Order cancelled - Patient discharged Performed By: #### L 500.2500 ####[facility] [address] [place], [address] EST GFR Normal >60 [facility] Comment on above: Result Comment: Canc elled via OM: Order cancelled - Patient discharged Performed By: #### L 500.2500 ####[facility] [address] [place], [address] EST GFR - AA Normal >60 [facility] Comment on above: Result Comment: Canc elled via OM: Order cancelled - Patient discharged Performed By: #### L 500.2500 ####[facility] [address] [place], [address] GAP Normal 5-15 [facility] Comment on above: Result Comment: Canc elled via OM: Order cancelled - Patient discharged Performed By: #### L 500.2500 ####[facility] [address] [place], [address] GLU Normal 74-106 [facility] Comment on above: Result Comment: Canc elled via OM: Order cancelled - Patient discharged Performed By: #### L 500.2500 ####[facility] [address] [place], [address] Potassium Normal 3.5-5.1 [facility] Comment on above: Result Comment: Canc elled via OM: Order cancelled - Patient discharged Performed By: #### L 500.2500 ####[facility] [address] [place], [address] Basic Metabolic Profile (BMP) Normal 136-145 [facility] Comment on above: Result Comment: Canc elled via OM: Order cancelled - Patient discharged Performed By: #### L 500.2500 ####[facility] [address] [place], [address] CBC-Complete Blood Cnt No Di ffon 08-11-2024 HCT Normal 37-47 [facility] Comment on above: Result Comment: Canc elled via OM: Order cancelled - Patient discharged Performed By: #### L 100.0500 ####[facility] [address] [place], [address] HGB Normal 12.0-15.0 [facility] Comment on above: Result Comment: Canc elled via OM: Order cancelled - Patient discharged Performed By: #### L 100.0500 ####[facility] [address] [place], [address] MCH Normal 27.0-32.0 [facility] Comment on above: Result Comment: Canc elled via OM: Order cancelled - Patient discharged Performed By: #### L 100.0500 ####[facility] [address] [place], [address] MCHC Normal 32-36 [facility] Comment on above: Result Comment: Canc elled via OM: Order cancelled - Patient discharged Performed By: #### L 100.0500 ####[facility] [address] [place], [address] MCV Normal 81-99 [facility] Comment on above: Result Comment: Canc elled via OM: Order cancelled - Patient discharged Performed By: #### L 100.0500 ####[facility] [address] [place], [address] PLT Normal 150-450 [facility] Comment on above: Result Comment: Canc elled via OM: Order cancelled - Patient discharged Performed By: #### L 100.0500 ####[facility] [address] [place], [address] RBC Normal 4.2-5.4 [facility] Comment on above: Result Comment: Canc elled via OM: Order cancelled - Patient discharged Performed By: #### L 100.0500 ####[facility] [address] [place], [address] RDW CV Normal 11.6-14.6 [facility] Comment on above: Result Comment: Canc elled via OM: Order cancelled - Patient discharged Performed By: #### L 100.0500 ####[facility] [address] [place], [address] RDW SD Normal 35.1-43.9 [facility] Comment on above: Result Comment: Canc elled via OM: Order cancelled - Patient discharged Performed By: #### L 100.0500 ####[facility] [address] [place], [address] WBC Normal 4.4-11.0 [facility] Comment on above: Result Comment: Canc elled via OM: Order cancelled - Patient discharged Performed By: #### L 100.0500 ####[facility] [address] [place], [address] CBC W/Diff, Automatedon 02-0 PATH REV Reviewed Normal [facility] Comment on above: Order Comment: A MENDED REPORT 08/09/24930 NEUT% previously reported as: 76.2 H % AMENDED REPORT 08/09/24931 LY% previously reported as: 11.6 L % AMENDED REPORT 08/09/24931 MONO% previously reported as: 4.8 % AMENDED REPORT 08/09/24931 EO% previously reported as: 0.0 % AMENDED REPORT 08/09/24931 BASO% previously reported as: 0.1 %IG% - Immature Granulocytes (promyelocytes, myelocytes andmetamyelocytes) > 1% indicates that a LEFT SHIFT is Present. AMENDED REPORT 08/09/24931 IM GRAN % previously reported as: 7.300 H % Result Comment: Neut rophilic left shift.Clinical correlation necessary.Patrice Quinones M.D. 08/10/24Neutrophilic left shift.Clinical correlation necessary.Patrice Quinones M.D. 08/10/24 AMENDED REPORT 08/10/24 1343 PATH REV previously reported as: November Performed By: #### L 100.0100, L500.2500 ####[facility] [address] [place], [address] [facility] 08-10-2024 [facility] Telephone (HEBERTLENNY) SNEHA CARDENAS ([id number]) 1955 F Date Time Provider Department 08/10/24 MAGALI NIEVESLENNY During your visit today, we recorded the following information about you: Annette Gonzalez MA 08/10/2024 1:03 PM Signed Pt calling in to report that she had been in and out of [place] [facility] for 3 weeks with RSV. Sent home with Kodi. She is calling to make sure this is something that Dr. Nieves would want her to take or if she would want her just to use the nebulizer treatments. She is finally doing better and she just doesn't want to have any set backs. Please review and advise. SANG Lawson Kathleen, LPN 08/10/2024 2:01 PM Signed Per our office records, patient had been using Breztri. Informed patient Kodi is an approved alternative and has the same triple therapy. She states she had been changed to Breztri in 2023 due to insurance formulary, and now Lexgy is formulary. She is still currently admitted. I encouraged her to contact us once she is discharged for outpatient follow up. Abimbola Lewis LPN Allergies As of Date: 08/10/2024 Noted Allergy Reaction KEFLEX (CEPHALEXIN) 10/04/2005 5 - Intolerance Comments: Tachycardia, palpitations. VANCOMYCIN 06/07/2024 4 - Hives Date Reviewed: 07/31/2024 Reviewed by: Anushka Alexis LPN - Fully Assessed Reason for Visit: Patient Update [1234] Patient Question [6017] Prescriptions as of 08/10/2024 - guaiFENesin (ROBITUSSIN) 100 mg/5 mL syrup Take 30 mL by mouth two times a day. - isosorbide mononitrate ER (IMDUR) 60 mg 24 hr tablet Take 1 tablet by mouth once daily. - montelukast (SINGULAIR) 10 mg tablet Take 1 tablet by mouth daily at bedtime. - sucralfate (CARAFATE) 1 gram tablet Take 1 tablet by mouth two times a day. - pantoprazole DR (PROTONIX) 40 mg tablet Take 1 tablet by mouth once daily. - albuterol HFA (PROAIR HFA) 90 mcg/actuation inhaler Inhale 2 Puffs as instructed every 4 hours as needed for wheezing/shortness of breath. - atorvastatin (LIPITOR) 40 mg tablet Take 1 tablet by mouth daily at bedtime. For cholesterol. - busPIRone (BUSPAR) 10 mg tablet Take 1 tablet by mouth two times a day. - esyltbkyoy-qcuubnxj-bv rmoterol (BREZTRI) 160-9-4.8 mcg/actuation HFA aerosol inhaler Inhale 2 Puffs as instructed two times a day. - fluticasone (FLONASE) 50 mcg/actuation nasal spray Use 2 Sprays in each nostril once daily. Rinse mouth after use. - ondansetron orally disintegrating (ZOFRAN ODT) 4 mg disintegrating tablet Take 1 tablet by mouth every 8 hours as needed for nausea/vomiting. - OXYGEN, HOME THERAPY, Inhale 3 L/min as instructed as directed. 3L NC continuous, up to 4L with exertion - acetaminophen (TYLENOL) 325 mg tablet Take 650 mg by mouth every 6 hours as needed. - nitroglycerin sublingual (NITROSTAT) 0.4 mg SL tablet Dissolve 0.4 mg under the tongue every 5 minutes as needed for chest pain. - polyethylene glycol 3350 (MIRALAX) 17 gram/dose powder Take 17 g by mouth as needed for constipation. Dissolve dose in 4 - 8 ounces of liquid and take as directed. - ipratropium-albuterol (DUONEB) 0.5 mg-3 mg(2.5 mg base)/3 mL nebu Inhale 3 mL as instructed every 4 hours as needed for wheezing/shortness of breath. Problem List As Of Date 08/10/2024 Noted Resolved Tobacco use disorder [F17.200] 11/02/2007 02/10/2017 Essential tremor [G25.0] 11/02/2007 Other specified disorder of gallbladder [K82.8] 12/11/2007 07/20/2012 Unspecified gastritis and gastroduodenitis with*02/09/2010 07/15/2015 Blood in stool [K92.1] 02/09/2010 07/20/2012 Loss of weight [R63.4] 02/09/2010 07/20/2012 Upper GI bleed [K92.2] 02/09/2010 04/12/2024 Acute gastritis without mention of hemorrhage [*02/09/2010 07/20/2012 Essential hypertension, benign [I10] 05/17/2011 07/15/2015 Migraine headache [G43.909] 07/15/2015 Irritable bowel syndrome [K58.9] 07/15/2015 Scoliosis [M41.9] 02/10/2017 Environmental allergies [Z91.09] History of colon polyps [Z86.0100] 07/15/2015 Chronic obstructive pulmonary disease (HCC) [J4*07/25/2012 Cervical disc disorder with radiculopathy [M50.*08/15/2015 02/10/2017 DDD (degenerative disc disease), cervical [M50.*08/15/2015 02/10/2017 Primary hypertension [I10] 06/03/2016 Asthma [J45.909] 02/15/2019 Hyperlipidemia [E78.5] 02/15/2019 Age-related osteoporosis without current pathol*08/28/2021 Hypoxemia [R09.02] 05/01/2021 08/25/2023 Lung nodule [R91.1] 05/12/2021 Elevated blood pressure reading [R03.0] 05/03/2022 08/25/2023 Chronic respiratory failure with hypoxia (HCC) *11/05/2022 Duodenal ulcer [K26.9] 06/30/2023 Paroxysmal atrial fibrillation (HCC) [I48.0] 06/30/2023 Pneumonia due to infectious organism [J18.9] 06/30/2023 04/12/2024 Anemia requiring transfusions [D64.9] 07/01/2023 Acute on chronic hypoxic respiratory failure (H*07/09/2023 08/25/2023 (more content not included)... [facility] SNE[facility] CARDENA[facility] ([id number]) 1955 F Date Time Provider Department 08/10/24 JULIO DRAPER INTMWS During your visit today, we recorded the following information about you: Annette Farr LPN 08/10/2024 11:44 AM Signed Nell with [facility] calling to let you know pt is in the hospital and will be d/c today or tomorrow. Asking for verbal orders to do resumption of care on Tuesday with pt for home health. Please advise Nell back. Okay to leave a detailed message. FREDY Eduardo Victor H, MD 08/10/2024 4:52 PM Signed Okay. Resume [facility] Tuesday08/14/24. Janie Yanes LPN 08/10/2024 4:56 PM Signed Phoned and left message on secure voicemail for Nell to notify of orders to resume [facility]. Janie Yanes LPN Allergies As of Date: 08/10/2024 Noted Allergy Reaction KEFLEX (CEPHALEXIN) 10/04/2005 5 - Intolerance Comments: Tachycardia, palpitations. VANCOMYCIN 06/07/2024 4 - Hives Date Reviewed: 07/31/2024 Reviewed by: Anushka Alexis LPN - Fully Assessed Prescriptions as of 08/10/2024 - guaiFENesin (ROBITUSSIN) 100 mg/5 mL syrup Take 30 mL by mouth two times a day. - isosorbide mononitrate ER (IMDUR) 60 mg 24 hr tablet Take 1 tablet by mouth once daily. - montelukast (SINGULAIR) 10 mg tablet Take 1 tablet by mouth daily at bedtime. - sucralfate (CARAFATE) 1 gram tablet Take 1 tablet by mouth two times a day. - pantoprazole DR (PROTONIX) 40 mg tablet Take 1 tablet by mouth once daily. - albuterol HFA (PROAIR HFA) 90 mcg/actuation inhaler Inhale 2 Puffs as instructed every 4 hours as needed for wheezing/shortness of breath. - atorvastatin (LIPITOR) 40 mg tablet Take 1 tablet by mouth daily at bedtime. For cholesterol. - busPIRone (BUSPAR) 10 mg tablet Take 1 tablet by mouth two times a day. - duhcluakqi-fxhkzooj-ad rmoterol (BREZTRI) 160-9-4.8 mcg/actuation HFA aerosol inhaler Inhale 2 Puffs as instructed two times a day. - fluticasone (FLONASE) 50 mcg/actuation nasal spray Use 2 Sprays in each nostril once daily. Rinse mouth after use. - ondansetron orally disintegrating (ZOFRAN ODT) 4 mg disintegrating tablet Take 1 tablet by mouth every 8 hours as needed for nausea/vomiting. - OXYGEN, HOME THERAPY, Inhale 3 L/min as instructed as directed. 3L NC continuous, up to 4L with exertion - acetaminophen (TYLENOL) 325 mg tablet Take 650 mg by mouth every 6 hours as needed. - nitroglycerin sublingual (NITROSTAT) 0.4 mg SL tablet Dissolve 0.4 mg under the tongue every 5 minutes as needed for chest pain. - polyethylene glycol 3350 (MIRALAX) 17 gram/dose powder Take 17 g by mouth as needed for constipation. Dissolve dose in 4 - 8 ounces of liquid and take as directed. - ipratropium-albuterol (DUONEB) 0.5 mg-3 mg(2.5 mg base)/3 mL nebu Inhale 3 mL as instructed every 4 hours as needed for wheezing/shortness of breath. Problem List As Of Date 08/10/2024 Noted Resolved Tobacco use disorder [F17.200] 11/02/2007 02/10/2017 Essential tremor [G25.0] 11/02/2007 Other specified disorder of gallbladder [K82.8] 12/11/2007 07/20/2012 Unspecified gastritis and gastroduodenitis with*02/09/2010 07/15/2015 Blood in stool [K92.1] 02/09/2010 07/20/2012 Loss of weight [R63.4] 02/09/2010 07/20/2012 Upper GI bleed [K92.2] 02/09/2010 04/12/2024 Acute gastritis without mention of hemorrhage [*02/09/2010 07/20/2012 Essential hypertension, benign [I10] 05/17/2011 07/15/2015 Migraine headache [G43.909] 07/15/2015 Irritable bowel syndrome [K58.9] 07/15/2015 Scoliosis [M41.9] 02/10/2017 Environmental allergies [Z91.09] History of colon polyps [Z86.0100] 07/15/2015 Chronic obstructive pulmonary disease (HCC) [J4*07/25/2012 Cervical disc disorder with radiculopathy [M50.*08/15/2015 02/10/2017 DDD (degenerative disc disease), cervical [M50.*08/15/2015 02/10/2017 Primary hypertension [I10] 06/03/2016 Asthma [J45.909] 02/15/2019 Hyperlipidemia [E78.5] 02/15/2019 Age-related osteoporosis without current pathol*08/28/2021 Hypoxemia [R09.02] 05/01/2021 08/25/2023 Lung nodule [R91.1] 05/12/2021 Elevated blood pressure reading [R03.0] 05/03/2022 08/25/2023 Chronic respiratory failure with hypoxia (HCC) *11/05/2022 Duodenal ulcer [K26.9] 06/30/2023 Paroxysmal atrial fibrillation (HCC) [I48.0] 06/30/2023 Pneumonia due to infectious organism [J18.9] 06/30/2023 04/12/2024 Anemia requiring transfusions [D64.9] 07/01/2023 Acute on chronic hypoxic respiratory failure (H*07/09/2023 08/25/2023 Empyema (HCC) [J86.9] 07/09/2023 08/25/2023 Dysphagia [R13.10] 07/09/2023 Shock, septic (HCC) [A41.9, R65.21] 07/11/2023 08/25/2023 Antibiotic-associated diarrhea [K52.1, T36.95XA]07/14/2023 04/12/2024 Pulmonary emphysema (HCC) [J43.9] 07/19/2023 04/12/2024 Former smoker [Z87.891] 07/19/2023 NSTEMI (non-ST elevated myocardial infarction) *07/20/2023 History of GI bleed [ (more content not included)... Normal [facility] CNPN Telephone (INTMWS) SNEHA CARDENAS ([id number]) 1955 F Date Time Provider Department 08/10/24 JULIO DRAPER INTMWS During your visit today, we recorded the following information about you: Le Aponte RN 08/10/2024 4:12 PM Signed Genna with [facility] Nursing calling. Will continue to see patient 1x/week for 4 more weeks. Pt would like to know if she can continue to take Mucinex;Fast Max liquid OTC medication? Please call nurse Genna back at [phone]. JAMI Oconnor Victor H, MD 08/10/2024 5:09 PM Signed Yes, she can take Mucinex preparation stated. Magali Casey MA 08/11/2024 8:25 AM Signed Patient was contacted and can take rx Magali Casey MA Allergies As of Date: 08/10/2024 Noted Allergy Reaction KEFLEX (CEPHALEXIN) 10/04/2005 5 - Intolerance Comments: Tachycardia, palpitations. VANCOMYCIN 06/07/2024 4 - Hives Date Reviewed: 07/31/2024 Reviewed by: Anushka Alexis LPN - Fully Assessed Reason for Visit: Home Health Nursing-Plan Update [Other] Prescriptions as of 08/11/2024 - guaiFENesin (ROBITUSSIN) 100 mg/5 mL syrup Take 30 mL by mouth two times a day. - isosorbide mononitrate ER (IMDUR) 60 mg 24 hr tablet Take 1 tablet by mouth once daily. - montelukast (SINGULAIR) 10 mg tablet Take 1 tablet by mouth daily at bedtime. - sucralfate (CARAFATE) 1 gram tablet Take 1 tablet by mouth two times a day. - pantoprazole DR (PROTONIX) 40 mg tablet Take 1 tablet by mouth once daily. - albuterol HFA (PROAIR HFA) 90 mcg/actuation inhaler Inhale 2 Puffs as instructed every 4 hours as needed for wheezing/shortness of breath. - atorvastatin (LIPITOR) 40 mg tablet Take 1 tablet by mouth daily at bedtime. For cholesterol. - busPIRone (BUSPAR) 10 mg tablet Take 1 tablet by mouth two times a day. - rkyiuntaib-labgrpdl-do rmoterol (BREZTRI) 160-9-4.8 mcg/actuation HFA aerosol inhaler Inhale 2 Puffs as instructed two times a day. - fluticasone (FLONASE) 50 mcg/actuation nasal spray Use 2 Sprays in each nostril once daily. Rinse mouth after use. - ondansetron orally disintegrating (ZOFRAN ODT) 4 mg disintegrating tablet Take 1 tablet by mouth every 8 hours as needed for nausea/vomiting. - OXYGEN, HOME THERAPY, Inhale 3 L/min as instructed as directed. 3L NC continuous, up to 4L with exertion - acetaminophen (TYLENOL) 325 mg tablet Take 650 mg by mouth every 6 hours as needed. - nitroglycerin sublingual (NITROSTAT) 0.4 mg SL tablet Dissolve 0.4 mg under the tongue every 5 minutes as needed for chest pain. - polyethylene glycol 3350 (MIRALAX) 17 gram/dose powder Take 17 g by mouth as needed for constipation. Dissolve dose in 4 - 8 ounces of liquid and take as directed. - ipratropium-albuterol (DUONEB) 0.5 mg-3 mg(2.5 mg base)/3 mL nebu Inhale 3 mL as instructed every 4 hours as needed for wheezing/shortness of breath. Problem List As Of Date 08/10/2024 Noted Resolved Tobacco use disorder [F17.200] 11/02/2007 02/10/2017 Essential tremor [G25.0] 11/02/2007 Other specified disorder of gallbladder [K82.8] 12/11/2007 07/20/2012 Unspecified gastritis and gastroduodenitis with*02/09/2010 07/15/2015 Blood in stool [K92.1] 02/09/2010 07/20/2012 Loss of weight [R63.4] 02/09/2010 07/20/2012 Upper GI bleed [K92.2] 02/09/2010 04/12/2024 Acute gastritis without mention of hemorrhage [*02/09/2010 07/20/2012 Essential hypertension, benign [I10] 05/17/2011 07/15/2015 Migraine headache [G43.909] 07/15/2015 Irritable bowel syndrome [K58.9] 07/15/2015 Scoliosis [M41.9] 02/10/2017 Environmental allergies [Z91.09] History of colon polyps [Z86.0100] 07/15/2015 Chronic obstructive pulmonary disease (HCC) [J4*07/25/2012 Cervical disc disorder with radiculopathy [M50.*08/15/2015 02/10/2017 DDD (degenerative disc disease), cervical [M50.*08/15/2015 02/10/2017 Primary hypertension [I10] 06/03/2016 Asthma [J45.909] 02/15/2019 Hyperlipidemia [E78.5] 02/15/2019 Age-related osteoporosis without current pathol*08/28/2021 Hypoxemia [R09.02] 05/01/2021 08/25/2023 Lung nodule [R91.1] 05/12/2021 Elevated blood pressure reading [R03.0] 05/03/2022 08/25/2023 Chronic respiratory failure with hypoxia (HCC) *11/05/2022 Duodenal ulcer [K26.9] 06/30/2023 Paroxysmal atrial fibrillation (HCC) [I48.0] 06/30/2023 Pneumonia due to infectious organism [J18.9] 06/30/2023 04/12/2024 Anemia requiring transfusions [D64.9] 07/01/2023 Acute on chronic hypoxic respiratory failure (H*07/09/2023 08/25/2023 Empyema (HCC) [J86.9] 07/09/2023 08/25/2023 Dysphagia [R13.10] 07/09/2023 Shock, septic (HCC) [A41.9, R65.21] 07/11/2023 08/25/2023 Antibiotic-associated diarrhea [K52.1, T36.95XA]07/14/2023 04/12/2024 Pulmonary emphysema (HCC) [J43.9] 07/19/2023 04/12/2024 Former smoker [Z87.891] 07/19/2023 NSTEMI (non-ST elevated myocardial infarction) *07/20/2023 History of (more content not included)... Normal [facility] Discharge Instructionon Discharge Instruction Normal [facility] Absolute lymphocyte countOrd ered By: Yemi Celaya on 08-09-2024 Lymphocytes Auto (Unsp spec) [#/Vol] 0.56 10*3/uL Low 0.83-4.51 [facility] Absolute neutrophil countOrd ered By: Yemi Celaya on 08-09-2024 Absolute neutrophil count 7.8 X10^3/uL High 2.0-7.7 [facility] Automated lymphocyte count a s percentage of total leukocytesOrdered By: Yemi Celaya on 08-09-2024 Lymphocytes/100 WBC Auto (Unsp spec) SASH CLAMP OPERATOR [facility] Basic Metabolic Profile (BMP )on 08-09-2024 BUN/CRE 18.7 RATIO Normal 10-20 [facility] Comment on above: Performed By: #### L 100.0100, L500.2500 ####[facility] [address] [place], [address] CA,Total 9.2 mg/dL Normal 8.5-10.1 [facility] Comment on above: Performed By: #### L 100.0100, L500.2500 ####[facility] [address] [place], [address] Chloride [Moles/Vol] 101 mmol/L Normal 98-107 [facility] Comment on above: Performed By: #### L 100.0100, L500.2500 ####[facility] [address] [place], [address] CO2 [Moles/Vol] 23.0 mmol/L Normal 21.0-32.0 [facility] Comment on above: Performed By: #### L 100.0100, L500.2500 ####[facility] [address] [place], [address] Creatinine [Mass/Vol] 4.02 mg/dL High 0.55-1.02 [facility] Comment on above: Result Comment: The validity of the calculated GFR GFRAA in patients over70 years has not been determined. Clinical correlation isessential. Performed By: #### L 100.0100, L500.2500 ####[facility] [address] [place], [address] ECRCL 12.56 ml/min Normal [facility] Comment on above: Performed By: #### L 100.0100, L500.2500 ####[facility] [address] [place], [address] EST GFR - AA 14 mL/min Low >60 [facility] Comment on above: Result Comment: Afri can Micronesian GFR Calc Performed By: #### L 100.0100, L500.2500 ####[facility] [address] [place], [address] GAP 11 Normal 5-15 [facility] Comment on above: Performed By: #### L 100.0100, L500.2500 ####[facility] [address] [place], [address] GFR/1.73 sq M.predicted among non-blacks MDRD (S/P/Bld) [Vol rate/Area] 12 mL/min/{1.73_m2} Low >60 [facility] Comment on above: Result Comment: Non- GFR Calc Performed By: #### L 100.0100, L500.2500 ####[facility] [address] [place], [address] Glucose [Mass/Vol] 103 mg/dL Normal 74-106 [facility] Comment on above: Result Comment: Fast ing Glucose result from 100 to 125 mg/dLsuggests IMPAIRED HOMEOSTASIS per A.D.A. criteria. Performed By: #### L 100.0100, L500.2500 ####[facility] [address] [place], [address] Potassium [Moles/Vol] 5.0 mmol/L Normal 3.5-5.1 [facility] Comment on above: Performed By: #### L 100.0100, L500.2500 ####[facility] [address] [place], [address] Sodium [Moles/Vol] 135 mmol/L Low 136-145 [facility] Comment on above: Performed By: #### L 100.0100, L500.2500 ####[facility] [address] [place], [place], [id number] Urea nitrogen [Mass/Vol] 75 mg/dL High 7-18 [facility] Comment on above: Performed By: #### L 100.0100, L500.2500 ####[facility] [address] [place], [place], [id number] Blood band neutrophil count as percentage of total leukocytesOrdered By: Yemi Celaya on 08-09-2024 Band form neutrophils/100 WBC (Bld) 3 % 0-5 [facility] Blood band neutrophil count as percentage of total leukocytes 3 % High 0-0 [facility] Blood lymphocytes/100 leukoc ytesOrdered By: Yemi Celaya on 08-09-2024 Lymphocytes/100 WBC (Bld) 6 % Low 19-41 [facility] Blood metamyelocytes/100 maria ines kocytesOrdered By: Yemi Celaya on 08-09-2024 Metamyelocytes/100 WBC (Bld) 3 % High 0-1 [facility] Blood monocytes/100 leukocyt esOrdered By: Yemi Celaya on 08-09-2024 Monocytes/100 WBC (Bld) 4 % 0-10 [facility] Blood segmented neutrophils/ 100 leukocytesOrdered By: Yemi Celaya on 08-09-2024 Segmented neutrophils/100 WBC (Bld) 81 % High 47-70 [facility] Blood urea nitrogen (BUN)/cr eatinine ratioOrdered By: Yemi Celaya on 08-09-2024 Blood urea nitrogen (BUN)/creatinine ratio 18.7 RATIO 10-20 [facility] Calcium [Mass/Vol]Ordered By : Yemi Celaya on 08-09-2024 Serum or plasma calcium measurement (mass/volume) 9.2 mg/dL 8.5-10.1 [facility] Carbon dioxide measurementOr dered By: Yemi Celaya on 08-09-2024 CO2 [Moles/Vol] 23.0 mmol/L 21.0-32.0 [facility] Carbon dioxide measurement 23.0 mmol/L 21.0-32.0 [facility] Cells counted Molgen (Bld/Ti ss) [#]Ordered By: Yemi Celaya on 08-09-2024 Total cell count 100 MANUAL DIFF [facility] Chloride measurementOrdered By: Yemi Celaya on 08-09-2024 Chloride [Moles/Vol] 101 mmol/L 98-107 [facility] Chloride measurement 101 mmol/L 98-107 [facility] Creatinine [Mass/Vol]Ordered By: Yemi Celaya on 08-09-2024 Serum or plasma creatinine measurement (mass/volume) 4.02 mg/dL High 0.55-1.02 [facility] Erythrocyte distribution wid th (RBC) [Entitic vol]Ordered By: Yemi Celaya on 08-09-2024 Erythrocyte distribution width standard deviation 50.4 fl High 35.1-43.9 [facility] Erythrocyte distribution wid th (RBC) [Ratio]Ordered By: Yemi Celaya on 08-09-2024 Erythrocyte distribution width ratio 15.4 % High 11.6-14.6 [facility] Erythrocyte distribution wid th ratioOrdered By: Yemi Celaya on 08-09-2024 Erythrocyte distribution width (RBC) [Ratio] 15.4 % High 11.6-14.6 [facility] Erythrocyte distribution wid th standard deviationOrdered By: Yemi Celaya on 08-09-2024 Erythrocyte distribution width (RBC) [Ratio] 50.4 fl High 35.1-43.9 [facility] Erythrocyte morphology asses smentOrdered By: Yemi Celaya on 08-09-2024 RBC morphology finding Nom (Bld) NORM C+C NORMAL NORM C&C [facility] Estimated glomerular filtrat ion rate (GFR) AmericanOrdered By: Yemi Celaya on 08-09-2024 Estimated glomerular filtration rate (GFR) 14 mL/min Low >60 [facility] Estimation of creatinine magdiel aranceOrdered By: Yemi Celaya on 08-09-2024 Estimation of creatinine clearance 12.56 ml/min [facility] Glomerular filtration rate ( GFR) estimationOrdered By: Yemi Celaya on 08-09-2024 GFR/1.73 sq M.predicted among non-blacks MDRD (S/P/Bld) [Vol rate/Area] 12 mL/min/{1.73_m2} Low >60 [facility] Glomerular filtration rate (GFR) estimation 12 mL/min Low >60 [facility] Glucose measurementOrdered B y: Yemi Celaya on 08-09-2024 Glucose [Mass/Vol] 103 mg/dL 74-106 [facility] Glucose measurement 103 mg/dL 74-106 [facility] Hematocrit Auto (Bld) [Volum e fraction]Ordered By: Yemi Celaya on 08-09-2024 Hematocrit (Bld) [Volume fraction] 34.8 % Low 37-47 [facility] Automated blood hematocrit (percentage) 34.8 % Low 37-47 [facility] Hemoglobin measurementOrdere d By: Yemi Celaya on 08-09-2024 Hemoglobin (Bld) [Mass/Vol] 11.2 g/dL Low 12.0-15.0 [facility] Hemoglobin measurement 11.2 g/dL Low 12.0-15.[address] 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 [facility] Lymphocytes Auto (Unsp spec) [#/Vol]Ordered By: Yemi Celaya on 08-09-2024 Absolute lymphocyte count 0.56 X10^3/uL Low 0.83-4.51 [facility] Lymphocytes/100 WBC (Bld)Ord ered By: Yemi Celaya on 08-09-2024 Blood lymphocytes/100 leukocytes 6 % Low 19-41 [facility] MCV (RBC) [Entitic vol]Order ed By: Yemi Celaya on 08-09-2024 MCV (mean corpuscular volume) determination 96.4 fL 81-99 [facility] MCV (mean corpuscular volume ) determinationOrdered By: Yemi Celaya on 08-09-2024 MCV (RBC) [Entitic vol] 96.4 fL 81-99 [facility] Mean corpuscular hemoglobin (MCH) determinationOrdered By: Yemi Celaya on 08-09-2024 MCH (RBC) [Entitic mass] 31.0 pg 27.0-32.0 [facility] Mean corpuscular hemoglobin (MCH) determination 31.0 pg 27.0-32.0 [facility] Mean corpuscular hemoglobin concentration (MCHC) determinationOrdered By: Yemi Celaya on 08-09-2024 Mean corpuscular hemoglobin concentration (MCHC) determination 32.2 g/dL 32-36 [facility] Mean platelet volume determi nationOrdered By: Yemi Celaya on 08-09-2024 Mean platelet volume determination 9.5 fl 6.2-12.0 [facility] Monocytes/100 WBC (Bld)Order ed By: Yemi Celaya on 08-09-2024 Blood monocytes/100 leukocytes 4 % 0-10 [facility] Neutrophil percentageOrdered By: Yemi Celaya on 08-09-2024 Neutrophil percentage SASH CLAMP OPERATOR [facility] Nucleated red blood cell per centageOrdered By: Yemi Celaya on 08-09-2024 Nucleated red blood cell percentage 0.2 % 0-5 [facility] Pathologist review Darnell (Unsp spec) [Interp]Ordered By: Yemi Celaya on 08-09-2024 Review by pathologist Reviewed [facility] Platelet countOrdered By: Margaux Celaya on 08-09-2024 Platelets (Bld) [#/Vol] 366 10*3/uL 150-450 [facility] Platelet count 366 K/mm3 150-450 [facility] Platelet estimateOrdered By: Yemi Celaya on 08-09-2024 Platelets LM Ql (Bld) ADEQUATE ADEQ [facility] Platelets LM Ql (Bld)Ordered By: Yemi Celaya on 08-09-2024 Platelet estimate ADEQUATE [facility] Potassium measurementOrdered By: Yemi Celaya on 08-09-2024 Potassium [Moles/Vol] 5.0 mmol/L 3.5-5.1 [facility] Potassium measurement 5.0 mmol/L 3.5-5.1 [facility] RBC Auto (Bld) [#/Vol]Ordere d By: Yemi Celaya on 08-09-2024 RBC (Bld) [#/Vol] 3.61 10*6/uL Low 4.2-5.4 [facility] Automated blood erythrocyte count 3.61 M/mm3 Low 4.2-5.4 [facility] RBC morphology finding Nom ( Bld)Ordered By: Yemi Celaya on 08-09-2024 Erythrocyte morphology assessment NORM C+C NORMAL NORM C&C [facility] Respiratory Cultureon 2024 RESPC No Haemophilus, Streptococcus pneumoniae, beta-hemolytic Streptococcus or Staphylococcus aureus isolated. Presumptive C albicans Amount Growth 1+ Normal [facility] Comment on above: Performed By: #### M 100.2400, M100.2000 ####[facility] [address] [place], [address] Review by pathologistOrdered By: Yemi Celaya on 08-09-2024 Pathologist review Darnell (Unsp spec) [Interp] Reviewed [facility] Segmented neutrophils/100 WB C (Bld)Ordered By: Yemi Celaya on 08-09-2024 Blood segmented neutrophils/100 leukocytes 81 % High 47-70 [facility] Serum anion gap measurementO rdered By: Yemi Celaya on 08-09-2024 Serum anion gap measurement 11 5-15 [facility] Serum or plasma calcium rena urement (mass/volume)Ordered By: Yemi Celaya on 08-09-2024 Calcium [Mass/Vol] 9.2 mg/dL 8.5-10.1 [facility] Serum or plasma creatinine m easurement (mass/volume)Ordered By: Yemi Celaya on 08-09-2024 Creatinine [Mass/Vol] 4.02 mg/dL High 0.55-1.02 [facility] Serum or plasma urea nitroge n measurement (mass/volume)Ordered By: Yemi Celaya on 08-09-2024 Urea nitrogen [Mass/Vol] 75 mg/dL High 7-18 [facility] Sodium levelOrdered By: Karis Celaya on 08-09-2024 Sodium [Moles/Vol] 135 mmol/L Low 136-145 [facility] Sodium level 135 mmol/L Low 136-145 [facility] Total cell countOrdered By: Yemi Celaya on 08-09-2024 Cells counted Molgen (Bld/Tiss) [#] 100 MANUAL DIFF [facility] Urea nitrogen [Mass/Vol]Orde red By: Yemi Celaya on 08-09-2024 Serum or plasma urea nitrogen measurement (mass/volume) 75 mg/dL High 7-18 [facility] White blood cell (WBC) count Ordered By: Yemi Celaya on 08-09-2024 WBC (Bld) [#/Vol] 9.3 10*3/uL 4.4-11.0 [facility] White blood cell (WBC) count 9.3 K/mm3 4.4-11.0 [facility] Basic Metabolic Profile (BMP )on 08-07-2024 BUN/CRE 16.0 RATIO Normal 10-20 [facility] Comment on above: Performed By: #### L 501.9520, L500.2500, L100.0100 ####[facility] [address] [place], [address] CA,Total 9.0 mg/dL Normal 8.5-10.1 [facility] Comment on above: Performed By: #### L 501.9520, L500.2500, L100.0100 ####[facility] [address] [place], [address] Chloride [Moles/Vol] 101 mmol/L Normal 98-107 [facility] Comment on above: Performed By: #### L 501.9520, L500.2500, L100.0100 ####[facility] [address] [place], [address] CO2 [Moles/Vol] 23.0 mmol/L Normal 21.0-32.0 [facility] Comment on above: Performed By: #### L 501.9520, L500.2500, L100.0100 ####[facility] [address] [place], [address] Creatinine [Mass/Vol] 3.49 mg/dL High 0.55-1.02 [facility] Comment on above: Result Comment: The validity of the calculated GFR GFRAA in patients over70 years has not been determined. Clinical correlation isessential. Performed By: #### L 501.9520, L500.2500, L100.0100 ####[facility] [address] [place], [address] ECRCL 14.66 ml/min Normal [facility] Comment on above: Performed By: #### L 501.9520, L500.2500, L100.0100 ####[facility] [address] [place], [address] EST GFR - AA 17 mL/min Low >60 [facility] [facility] Comment on above: Result Comment: Afri can Micronesian GFR Calc Performed By: #### L 501.9520, L500.2500, L100.0100 ####[facility] [address] [place], [address] GAP 12 Normal 5-15 [facility] Comment on above: Performed By: #### L 501.9520, L500.2500, L100.0100 ####[facility] [address] [place], [address] GFR/1.73 sq M.predicted among non-blacks MDRD (S/P/Bld) [Vol rate/Area] 14 mL/min/{1.73_m2} Low >60 [facility] Comment on above: Result Comment: Non- GFR Calc Performed By: #### L 501.9520, L500.2500, L100.0100 ####[facility] [address] [place], [address] Glucose [Mass/Vol] 97 mg/dL Normal 74-106 [facility] Comment on above: Performed By: #### L 501.9520, L500.2500, L100.0100 ####[facility] [address] [place], [address] Potassium [Moles/Vol] 4.5 mmol/L Normal 3.5-5.1 [facility] Comment on above: Performed By: #### L 501.9520, L500.2500, L100.0100 ####[facility] [address] [place], [address] Sodium [Moles/Vol] 136 mmol/L Normal 136-145 [facility] Comment on above: Performed By: #### L 501.9520, L500.2500, L100.0100 ####[facility] [address] [place], [address] Urea nitrogen [Mass/Vol] 56 mg/dL High 7-18 [facility] Comment on above: Performed By: #### L 501.9520, L500.2500, L100.0100 ####[facility] [address] [place], [address] CBC W/Diff, Automatedon 02-0 4-202 Absolute Lymph 0.95 X10 3/uL Normal 0.83-4.51 [facility] Comment on above: Performed By: #### L 501.9520, L500.2500, L100.0100 ####[facility] [address] [place], [address] Absolute Neut 7.5 X10 3/uL Normal 2.0-7.7 [facility] Comment on above: Performed By: #### L 501.9520, L500.2500, L100.0100 ####[facility] [address] [place], [address] Basophils/100 WBC (Bld) 0.6 % Normal 0-1 [facility] Comment on above: Performed By: #### L 501.9520, L500.2500, L100.0100 ####[facility] [address] [place], [address] Eosinophils/100 WBC (Bld) 0.0 % Normal 0-5 [facility] Comment on above: Performed By: #### L 501.9520, L500.2500, L100.0100 ####[facility] [address] [place], [address] Erythrocyte distribution width (RBC) [Ratio] 15.3 % High 11.6-14.6 [facility] Comment on above: Performed By: #### L 501.9520, L500.2500, L100.0100 ####[facility] [address] [place], [address] Hematocrit (Bld) [Volume fraction] 30.9 % Low 37-47 [facility] Comment on above: Performed By: #### L 501.9520, L500.2500, L100.0100 ####[facility] [address] [place], [address] Hemoglobin (Bld) [Mass/Vol] 9.8 g/dL Low 12.0-15.0 [facility] Comment on above: Performed By: #### L 501.9520, L500.2500, L100.0100 ####[facility] [address] [place], [address] IG% 2.300 High 0.0-0.9 [facility] Comment on above: Result Comment: IG% - Immature Granulocytes (promyelocytes, myelocytes andmetamyelocytes) > 1% indicates that a LEFT SHIFT is Present. Performed By: #### L 501.9520, L500.2500, L100.0100 ####[facility] [address] [place], [address] Lymphocytes/100 WBC (Bld) 10.5 % Low 19-41 [facility] Comment on above: Performed By: #### L 501.9520, L500.2500, L100.0100 ####[facility] [address] [place], [address] MCH (RBC) [Entitic mass] 30.5 pg Normal 27.0-32.0 [facility] Comment on above: Performed By: #### L 501.9520, L500.2500, L100.0100 ####[facility] [address] [place], [address] MCHC (RBC) [Mass/Vol] 31.7 g/dL Low 32-36 [facility] Comment on above: Performed By: #### L 501.9520, L500.2500, L100.0100 ####[facility] [address] [place], [address] MCV (RBC) [Entitic vol] 96.3 fL Normal 81-99 [facility] Comment on above: Performed By: #### L 501.9520, L500.2500, L100.0100 ####[facility] [address] [place], [address] Monocytes/100 WBC (Bld) 3.1 % Normal 0-10 [facility] Comment on above: Performed By: #### L 501.9520, L500.2500, L100.0100 ####[facility] [address] [place], [address] Neutrophils/100 WBC (Bld) 83.5 % High 47-70 [facility] Comment on above: Performed By: #### L 501.9520, L500.2500, L100.0100 ####[facility] [address] [place], [address] Nucleated RBC (Bld) [#/Vol] 0 10*3/uL Normal 0-5 [facility] Comment on above: Performed By: #### L 501.9520, L500.2500, L100.0100 ####[facility] [address] [place], [address] Platelet mean volume (Bld) [Entitic vol] 9.4 fL Normal 6.2-12.0 [facility] Comment on above: Performed By: #### L 501.9520, L500.2500, L100.0100 ####[facility] [address] [place], [address] Platelets (Bld) [#/Vol] 333 10*3/uL Normal 150-450 [facility] Comment on above: Performed By: #### L 501.9520, L500.2500, L100.0100 ####[facility] [address] [place], [address] RBC (Bld) [#/Vol] 3.21 10*6/uL Low 4.2-5.4 [facility] Comment on above: Performed By: #### L 501.9520, L500.2500, L100.0100 ####[facility] [address] [place], [address] RDW SD 49.5 fl High 35.1-43.9 [facility] Comment on above: Performed By: #### L 501.9520, L500.2500, L100.0100 ####[facility] [address] [place], [address] WBC (Bld) [#/Vol] 9.0 10*3/uL Normal 4.4-11.0 [facility] Comment on above: Performed By: #### L 501.9520, L500.2500, L100.0100 ####[facility] [address] [place], [address] Gram Stainon 08-07-2024 GS Acceptable Specimen? Yes (<25 Epithelial cells per/lpf) Gram Stain Rare White Blood Cells No organisms seen Normal [facility] Comment on above: Performed By: #### M 100.2400, M100.2000 ####[facility] [address] [place], [address] Serum or plasma thyroid stim ulating hormone (TSH) measurement (units/volume)Ordered By: Yemi Celaya on 08-07-2024 TSH Qn 1.140 uIU/mL 0.358-3.740 [facility] TSH QnOrdered By: Yemi Ogden and on 08-07-2024 Serum or plasma thyroid stimulating hormone (TSH) measurement (units/volume) 1.140 uIU/mL 0.358-3.740 [facility] Thyroid Stim Hormone (TSH)on 08-07-2024 TSH 1.140 uIU/mL Normal 0.358-3.740 [facility] Comment on above: Performed By: #### L 501.9520, L500.2500, L100.0100 ####[facility] [address] [facility] [place], [address] Arterial patency Wrist arter y --pre arterial punctureOrdered By: Yemi Celaya on 08-06-2024 Assessment of wrist artery patency prior to arterial puncture N/A [facility] Assessment of wrist artery p atency prior to arterial punctureOrdered By: Yemi Celaya on 08-06-2024 Arterial patency Wrist artery --pre arterial puncture N/A [facility] BNP (brain natriuretic pepti de measurement)Ordered By: Yemi Celaya on 08-06-2024 Natriuretic peptide B (Bld) [Mass/Vol] 138.6 pg/mL High 0100 [facility] BNP (brain natriuretic peptide measurement) 138.6 pg/mL High 0100 [facility] BNP,B-Type NATRIURETIC PEPTI Arian 08-06-2024 Natriuretic peptide B (Bld) [Mass/Vol] 138.6 pg/mL High 0100 [facility] Comment on above: Performed By: #### L 503.6620 ####[facility] [address] [facility] [place], [place], [id number] Base excess Calc (BldV) [Mol es/Vol]Ordered By: Yemi Celaya on 08-06-2024 Blood base excess determination 4 mmol/L High -2-2 [facility] Basic Metabolic Profile (BMP )on 08-06-2024 BUN/CRE 15.3 RATIO Normal 10-20 [facility] Comment on above: Performed By: #### L 500.2500, L100.0100, L501.5200, L501.9520, L501.2300 ####[facility] [address] [place], [address] CA,Total 8.7 mg/dL Normal 8.5-10.1 [facility] Comment on above: Performed By: #### L 500.2500, L100.0100, L501.5200, L501.9520, L501.2300 ####[facility] [address] [place], [address] Chloride [Moles/Vol] 103 mmol/L Normal 98-107 [facility] Comment on above: Performed By: #### L 500.2500, L100.0100, L501.5200, L501.9520, L501.2300 ####[facility] [address] [place], [address] CO2 [Moles/Vol] 26.0 mmol/L Normal 21.0-32.0 [facility] Comment on above: Performed By: #### L 500.2500, L100.0100, L501.5200, L501.9520, L501.2300 ####[facility] [address] [place], [address] Creatinine [Mass/Vol] 4.17 mg/dL High 0.55-1.02 [facility] Comment on above: Result Comment: The validity of the calculated GFR GFRAA in patients over70 years has not been determined. Clinical correlation isessential. Performed By: #### L 500.2500, L100.0100, L501.5200, L501.9520, L501.2300 ####[facility] [address] [place], [address] ECRCL 11.15 ml/min Normal [facility] Comment on above: Performed By: #### L 500.2500, L100.0100, L501.5200, L501.9520, L501.2300 ####[facility] [address] [place], [address] EST GFR - AA 14 mL/min Low >60 [facility] Comment on above: Result Comment: Afri can Micronesian GFR Calc Performed By: #### L 500.2500, L100.0100, L501.5200, L501.9520, L501.2300 ####[facility] [address] [place], [address] GAP 11 Normal 5-15 [facility] Comment on above: Performed By: #### L 500.2500, L100.0100, L501.5200, L501.9520, L501.2300 ####[facility] [address] [place], [address] GFR/1.73 sq M.predicted among non-blacks MDRD (S/P/Bld) [Vol rate/Area] 11 mL/min/{1.73_m2} Low >60 [facility] Comment on above: Result Comment: Non- GFR Calc Performed By: #### L 500.2500, L100.0100, L501.5200, L501.9520, L501.2300 ####[facility] [address] [place], [address] Glucose [Mass/Vol] 126 mg/dL High 74-106 [facility] Comment on above: Result Comment: Fast ing Glucose result greater than or equal to 126 mg/dLsuggests DIABETES MELLITUS per A.D.A. criteria. Performed By: #### L 500.2500, L100.0100, L501.5200, L501.9520, L501.2300 ####[facility] [address] [place], [address] Potassium [Moles/Vol] 4.4 mmol/L Normal 3.5-5.1 [facility] Comment on above: Performed By: #### L 500.2500, L100.0100, L501.5200, L501.9520, L501.2300 ####[facility] [address] [place], [address] Sodium [Moles/Vol] 140 mmol/L Normal 136-145 [facility] Comment on above: Performed By: #### L 500.2500, L100.0100, L501.5200, L501.9520, L501.2300 ####[facility] [address] [place], [address] Urea nitrogen [Mass/Vol] 64 mg/dL High 7-18 [facility] Comment on above: Performed By: #### L 500.2500, L100.0100, L501.5200, L501.9520, L501.2300 ####[facility] [address] [place], [address] [facility] SEVEN TEST N/A Normal [facility] Comment on above: Performed By: #### L 9000.0800 ####[facility] [address] [place], [address] Base excess Calc (Bld) [Moles/Vol] 4 mmol/L High -2 to +2 [facility] Comment on above: Performed By: #### L 9000.0800 ####[facility] [address] [place], [address] Blood Gas Type ART Normal [facility] Comment on above: Performed By: #### L 9000.0800 ####[facility] [address] [place], [address] CO2 [Moles/Vol] 31 mmol/L [facility] Comment on above: Performed By: #### L 9000.0800 ####[facility] [address] [place], [address] FI02 10.0 [facility] Comment on above: Performed By: #### L 9000.0800 ####[facility] [address] [place], [address] HCO3 (Bld) [Moles/Vol] 29.4 mmol/L High 22-26 [facility] Comment on above: Performed By: #### L 9000.0800 ####[facility] [address] [place], [address] Mode Not entered [facility] Comment on above: Performed By: #### L 9000.0800 ####[facility] [address] [place], [address] O2 Delivery Dev Not entered [facility] Comment on above: Performed By: #### L 9000.0800 ####[facility] [address] [place], [address] pCO2 49.7 mmHg High 35-45 [facility] Comment on above: Performed By: #### L 9000.0800 ####[facility] [address] [place], [address] pH (Bld) 7.38 [pH] Normal 7.35-7.45 [facility] Comment on above: Performed By: #### L 9000.0800 ####[facility] [address] [place], [address] PO2 83 mmHG Normal 75-100 [facility] Comment on above: Performed By: #### L 9000.0800 ####[facility] [address] [place], [address] SITE R Radial Normal [facility] Comment on above: Performed By: #### L 9000.0800 ####[facility] [address] [place], [address] SO2 96 Normal 95-99 [facility] Comment on above: Performed By: #### L 9000.0800 ####[facility] [address] [place], [address] Blood base excess determinat ionOrdered By: Yemi Celaya on 08-06-2024 Base excess Calc (BldV) [Moles/Vol] 4 mmol/L High -2-2 [facility] Blood bicarbonate measuremen tOrdered By: Yemi Celaya on 08-06-2024 HCO3 (Bld) [Moles/Vol] 29.4 mmol/L High 22- [facility] Blood bicarbonate measurement 29.4 mmol/L [facility] CBC W/Diff, Automatedon Absolute Lymph 0.84 X10 3/uL Normal 0.83-4.51 [facility] Comment on above: Performed By: #### L 500.2500, L100.0100, L501.5200, L501.9520, L501.2300 ####[facility] [address] [place], [address] Absolute Neut 7.9 X10 3/uL High 2.0-7.7 [facility] Comment on above: Performed By: #### L 500.2500, L100.0100, L501.5200, L501.9520, L501.2300 ####[facility] [address] [place], [address] Basophils/100 WBC (Bld) 0.3 % Normal 0-1 [facility] Comment on above: Performed By: #### L 500.2500, L100.0100, L501.5200, L501.9520, L501.2300 ####[facility] [address] [place], [address] Eosinophils/100 WBC (Bld) 0.0 % Normal 0-5 [facility] Comment on above: Performed By: #### L 500.2500, L100.0100, L501.5200, L501.9520, L501.2300 ####[facility] [address] [place], [address] Erythrocyte distribution width (RBC) [Ratio] 15.1 % High 11.6-14.6 [facility] Comment on above: Performed By: #### L 500.2500, L100.0100, L501.5200, L501.9520, L501.2300 ####[facility] [address] [place], [address] Hematocrit (Bld) [Volume fraction] 31.8 % Low 37-47 [facility] Comment on above: Performed By: #### L 500.2500, L100.0100, L501.5200, L501.9520, L501.2300 ####[facility] [address] [place], [address] Hemoglobin (Bld) [Mass/Vol] 9.8 g/dL Low 12.0-15.0 [facility] Comment on above: Performed By: #### L 500.2500, L100.0100, L501.5200, L501.9520, L501.2300 ####[facility] [address] [place], [address] IG% 2.400 High 0.0-0.9 [facility] Comment on above: Result Comment: IG% - Immature Granulocytes (promyelocytes, myelocytes andmetamyelocytes) > 1% indicates that a LEFT SHIFT is Present. Performed By: #### L 500.2500, L100.0100, L501.5200, L501.9520, L501.2300 ####[facility] [address] [place], [address] Lymphocytes/100 WBC (Bld) 9.0 % Low 19-41 [facility] Comment on above: Performed By: #### L 500.2500, L100.0100, L501.5200, L501.9520, L501.2300 ####[facility] [address] [place], [address] MCH (RBC) [Entitic mass] 30.1 pg Normal 27.0-32.0 [facility] Comment on above: Performed By: #### L 500.2500, L100.0100, L501.5200, L501.9520, L501.2300 ####[facility] [address] [place], [address] MCHC (RBC) [Mass/Vol] 30.8 g/dL Low 32-36 [facility] Comment on above: Performed By: #### L 500.2500, L100.0100, L501.5200, L501.9520, L501.2300 ####[facility] [address] [place], [address] MCV (RBC) [Entitic vol] 97.5 fL Normal 81-99 [facility] Comment on above: Performed By: #### L 500.2500, L100.0100, L501.5200, L501.9520, L501.2300 ####[facility] [address] [place], [address] Monocytes/100 WBC (Bld) 3.0 % Normal 0-10 [facility] Comment on above: Performed By: #### L 500.2500, L100.0100, L501.5200, L501.9520, L501.2300 ####[facility] [address] [place], [address] Neutrophils/100 WBC (Bld) 85.3 % High 47-70 [facility] Comment on above: Performed By: #### L 500.2500, L100.0100, L501.5200, L501.9520, L501.2300 ####[facility] [address] [place], [address] Nucleated RBC (Bld) [#/Vol] 0 10*3/uL Normal 0-5 [facility] Comment on above: Performed By: #### L 500.2500, L100.0100, L501.5200, L501.9520, L501.2300 ####[facility] [address] [place], [address] Platelet mean volume (Bld) [Entitic vol] 9.5 fL Normal 6.2-12.0 [facility] Comment on above: Performed By: #### L 500.2500, L100.0100, L501.5200, L501.9520, L501.2300 ####[facility] [address] [place], [address] Platelets (Bld) [#/Vol] 306 10*3/uL Normal 150-450 [facility] Comment on above: Performed By: #### L 500.2500, L100.0100, L501.5200, L501.9520, L501.2300 ####[facility] [address] [place], [address] RBC (Bld) [#/Vol] 3.26 10*6/uL Low 4.2-5.4 [facility] Comment on above: Performed By: #### L 500.2500, L100.0100, L501.5200, L501.9520, L501.2300 ####[facility] [address] [place], [address] RDW SD 50.0 fl High 35.1-43.9 [facility] Comment on above: Performed By: #### L 500.2500, L100.0100, L501.5200, L501.9520, L501.2300 ####[facility] [address] [place], [address] WBC (Bld) [#/Vol] 9.3 10*3/uL Normal 4.4-11.0 [facility] Comment on above: Performed By: #### L 500.2500, L100.0100, L501.5200, L501.9520, L501.2300 ####[facility] [address] [place], [place], [address] CTA Chest W/WO Contraston CTA Chest W/WO Contrast Normal [facility] Chest without Contraston Chest without Contrast Normal [facility] Consultation - Nephrologyon 08-06-2024 Consultation - Nephrology Normal [facility] D-Dimer Quantitative (DVT/PE )on 08-06-2024 D-DIMER QUANT 1.01 FEU/ug/m Invalid Interpretation Code 0.27-0.49 [facility] Comment on above: Order Comment: CRITI YOANA VALUE CALLED TO CHERYL SOTO08/06/24 0902 Sima Gilbert.RESULTS READ BACK BY SAME. Result Comment: D-Di lucía ELEVATED (>0.49): Additional studies and clinicalassessments are indicated to conclude diagnosis of:Deep Vein Thrombosis (DVT) or Pulmonary Embolism (PE) Performed By: #### L 300.8000 ####[facility] [address] [place], [place], [id number] D-dimer measurement for deep venous thrombosisOrdered By: Yemi Celaya on 08-06-2024 D-dimer measurement for deep venous thrombosis 1.01 FEU/ug/m High 0.27-0.49 [facility] Determination of fraction of inspired oxygenOrdered By: Yemi Celaya on 08-06-2024 Determination of fraction of inspired oxygen 10.0 [facility] Emergency Department Summary on 08-06-2024 Emergency Department Summary Normal [facility] Gram stainOrdered By: Cuco Celaya on 08-06-2024 Microscopic observation Gram stain Nom (Unsp spec) [facility] H AND P Exam - Hospitaliston 08-06-2024 H&P Exam - Hospitalist Normal [facility] Influenza virus A and B and SARS-CoV-2 (COVID-19) and Respiratory syncytial virus RNAOrdered By: Yemi Celaya on 08-06-2024 SARS-CoV-2 (COVID-19) RNA FOZIA+probe Ql (Unsp spec) RSV Abnormal [facility] Influenza virus A and B and SARS-CoV-2 (COVID-19) and Respiratory syncytial virus RNA RSV Abnormal [facility] M100.678on 08-06-2024 M100.678 Normal [facility] Comment on above: Performed By: #### M 100.678 ####[facility] [address] [place], [address] Magnesiumon 08-06-2024 Magnesium [Mass/Vol] 2.1 mg/dL Normal 1.6-2.6 [facility] Comment on above: Performed By: #### L 500.2500, L100.0100, L501.5200, L501.9520, L501.2300 ####[facility] [address] [place], [address] Magnesium measurementOrdered By: Hoang Foster on 08-06-2024 Magnesium [Mass/Vol] 2.1 mg/dL 1.6-2.6 [facility] Magnesium measurement 2.1 mg/dL 1.6-2.6 [facility] Measurement, pHOrdered By: Shani Celaya on 08-06-2024 pH (Unsp spec) 7.38 [pH] 7.35-7.45 [facility] Microbial respiratory cultur eOrdered By: Yemi Celaya on 08-06-2024 Microorganism identified Cx Nom (Unsp spec) Presumptive C albicans Abnormal [facility] Microorganism identified Cx Nom (Unsp spec)Ordered By: Yemi Celaya on 08-06-2024 Microbial respiratory culture Presumptive C albicans Abnormal [facility] No Panel InformationOrdered By: Yemi Celaya on 08-06-2024 ART [facility] R Radial [facility] Not entered [facility] Oxygen saturation measuremen tOrdered By: Yemi Celaya on 08-06-2024 Oxygen saturation measurement 96 % 95-99 [facility] Partial pressure of carbon d ioxide measurementOrdered By: Yemi Celaya on 08-06-2024 Partial pressure of carbon dioxide measurement 49.7 mmHg High 35-45 [facility] Partial pressure of oxygen m easurementOrdered By: Yemi Celaya on 08-06-2024 Partial pressure of oxygen measurement 83 mmHG 75-100 [facility] Phosphoruson 08-06-2024 Phosphate [Mass/Vol] 6.3 mg/dL High 2.5-4.9 [facility] Comment on above: Performed By: #### L 500.2500, L100.0100, L501.5200, L501.9520, L501.2300 ####[facility] [address] [place], [address] Phosphorus measurementOrdere d By: Hoang Foster on 08-06-2024 Phosphorus measurement 6.3 mg/dL High 2.5-4.[address] [facility] Thyroid Stim Hormone (TSH)on 08-06-2024 TSH 1.310 uIU/mL Normal 0.358-3.740 [facility] Comment on above: Performed By: #### L 500.2500, L100.0100, L501.5200, L501.9520, L501.2300 ####[facility] [address] [place], [address] Total carbon dioxide measure mentOrdered By: Yemi Celaya on 08-06-2024 CO2 [Moles/Vol] 31 mmol/L [facility] Total carbon dioxide measurement 31 mmol/L [facility] pH (Unsp spec)Ordered By: Margaux Celaya on 08-06-2024 Measurement, pH 7.38 7.35-7.45 [facility] CBC W/Diff, Automatedon 07-06 Absolute Lymph 1.24 X10 3/uL Normal 0.83-4.51 [facility] Comment on above: Performed By: #### L 500.4050, L100.0100 ####[facility] [address] [place], [address] Absolute Neut 8.0 X10 3/uL High 2.0-7.7 [facility] Comment on above: Performed By: #### L 500.4050, L100.0100 ####[facility] [address] [place], [address] Basophils/100 WBC (Bld) 0.5 % Normal 0-1 [facility] Comment on above: Performed By: #### L 500.4050, L100.0100 ####[facility] [address] [place], [address] Eosinophils/100 WBC (Bld) 4.2 % Normal 0-5 [facility] Comment on above: Performed By: #### L 500.4050, L100.0100 ####[facility] [address] [place], [address] Erythrocyte distribution width (RBC) [Ratio] 15.4 % High 11.6-14.6 [facility] Comment on above: Performed By: #### L 500.4050, L100.0100 ####[facility] [address] [place], [address] Hematocrit (Bld) [Volume fraction] 28.5 % Low 37-47 [facility] Comment on above: Performed By: #### L 500.4050, L100.0100 ####[facility] [address] [place], [address] Hemoglobin (Bld) [Mass/Vol] 9.2 g/dL Low 12.0-15.0 [facility] Comment on above: Performed By: #### L 500.4050, L100.0100 ####[facility] [address] [place], [address] IG% 1.200 High 0.0-0.9 [facility] Comment on above: Result Comment: IG% - Immature Granulocytes (promyelocytes, myelocytes andmetamyelocytes) > 1% indicates that a LEFT SHIFT is Present. Performed By: #### L 500.4050, L100.0100 ####[facility] [address] [place], [address] Lymphocytes/100 WBC (Bld) 11.4 % Low 19-41 [facility] Comment on above: Performed By: #### L 500.4050, L100.0100 ####[facility] [address] [place], [address] MCH (RBC) [Entitic mass] 30.8 pg Normal 27.0-32.0 [facility] Comment on above: Performed By: #### L 500.4050, L100.0100 ####[facility] [address] [place], [address] MCHC (RBC) [Mass/Vol] 32.3 g/dL Normal 32-36 [facility] Comment on above: Performed By: #### L 500.4050, L100.0100 ####[facility] [address] [place], [address] MCV (RBC) [Entitic vol] 95.3 fL Normal 81-99 [facility] Comment on above: Performed By: #### L 500.4050, L100.0100 ####[facility] [address] [place], [address] Monocytes/100 WBC (Bld) 8.8 % Normal 0-10 [facility] Comment on above: Performed By: #### L 500.4050, L100.0100 ####[facility] [address] [place], [address] Neutrophils/100 WBC (Bld) 73.9 % High 47-70 [facility] Comment on above: Performed By: #### L 500.4050, L100.0100 ####[facility] [address] [place], [address] Nucleated RBC (Bld) [#/Vol] 0 10*3/uL Normal 0-5 [facility] Comment on above: Performed By: #### L 500.4050, L100.0100 ####[facility] [address] [place], [address] Platelet mean volume (Bld) [Entitic vol] 9.3 fL Normal 6.2-12.0 [facility] Comment on above: Performed By: #### L 500.4050, L100.0100 ####[facility] [address] [place], [address] Platelets (Bld) [#/Vol] 289 10*3/uL Normal 150-450 [facility] Comment on above: Performed By: #### L 500.4050, L100.0100 ####[facility] [address] [place], [address] RBC (Bld) [#/Vol] 2.99 10*6/uL Low 4.2-5.4 [facility] Comment on above: Performed By: #### L 500.4050, L100.0100 ####[facility] [address] [place], [address] RDW SD 47.0 fl High 35.1-43.9 [facility] Comment on above: Performed By: #### L 500.4050, L100.0100 ####[facility] [address] [place], [address] WBC (Bld) [#/Vol] 10.8 10*3/uL Normal 4.4-11.0 [facility] Comment on above: Performed By: #### L 500.4050, L100.0100 ####[facility] [address] [place], [address] Comprehensive Metabolic Prof [facility] 08-03-2024 Albumin [Mass/Vol] 3.3 g/dL Normal 3.2-5.0 [facility] Comment on above: Performed By: #### L 500.4050, L100.0100 ####[facility] [address] [place], [address] Albumin/Globulin [Mass ratio] 0.9 {ratio} Normal 0.9-2.4 [facility] Comment on above: Performed By: #### L 500.4050, L100.0100 ####[facility] [address] [place], [address] ALK P 131 U/L High 45-117 [facility] Comment on above: Performed By: #### L 500.4050, L100.0100 ####[facility] [address] [place], [address] ALT [Catalytic activity/Vol] 24 U/L Normal 13-56 [facility] Comment on above: Performed By: #### L 500.4050, L100.0100 ####[facility] [address] [place], [address] AST [Catalytic activity/Vol] 12 U/L Low 15-37 [facility] Comment on above: Performed By: #### L 500.4050, L100.0100 ####[facility] [address] [place], [address] Bilirubin [Mass/Vol] 0.40 mg/dL Normal 0.20-1.00 [facility] Comment on above: Result Comment: For patients on eltrombopag therapy, use of Dimension Pierson TBIL is not recommended. Performed By: #### L 500.4050, L100.0100 ####[facility] [address] [place], [address] BUN/CRE 9.1 RATIO Low 10-20 [facility] Comment on above: Performed By: #### L 500.4050, L100.0100 ####[facility] [address] [place], [address] CA,Total 8.9 mg/dL Normal 8.5-10.1 [facility] Comment on above: Performed By: #### L 500.4050, L100.0100 ####[facility] [address] [place], [address] Chloride [Moles/Vol] 102 mmol/L Normal 98-107 [facility] Comment on above: Performed By: #### L 500.4050, L100.0100 ####[facility] [address] [place], [address] CO2 [Moles/Vol] 28.0 mmol/L Normal 21.0-32.0 [facility] Comment on above: Performed By: #### L 500.4050, L100.0100 ####[facility] [address] [place], [address] Creatinine [Mass/Vol] 3.63 mg/dL High 0.55-1.02 [facility] Comment on above: Result Comment: The validity of the calculated GFR GFRAA in patients over70 years has not been determined. Clinical correlation isessential. Performed By: #### L 500.4050, L100.0100 ####[facility] [address] [place], [address] ECRCL 13.48 ml/min Normal [facility] Comment on above: Performed By: #### L 500.4050, L100.0100 ####[facility] [address] [place], [address] EST GFR - AA 16 mL/min Low >60 [facility] Comment on above: Result Comment: Afri can Micronesian GFR Calc Performed By: #### L 500.4050, L100.0100 ####[facility] [address] [place], [address] GAP 10 Normal 5-15 [facility] Comment on above: Performed By: #### L 500.4050, L100.0100 ####[facility] [address] [place], [address] GFR/1.73 sq M.predicted among non-blacks MDRD (S/P/Bld) [Vol rate/Area] 13 mL/min/{1.73_m2} Low >60 [facility] Comment on above: Result Comment: Non- GFR Calc Performed By: #### L 500.4050, L100.0100 ####[facility] [address] [place], [address] Globulin (S) [Mass/Vol] 3.7 g/dL Normal 2.2-4.2 [facility] Comment on above: Performed By: #### L 500.4050, L100.0100 ####[facility] [address] [place], [address] Glucose [Mass/Vol] 115 mg/dL High 74-106 [facility] Comment on above: Result Comment: Fast ing Glucose result from 100 to 125 mg/dLsuggests IMPAIRED HOMEOSTASIS per A.D.A. criteria. Performed By: #### L 500.4050, L100.0100 ####[facility] [address] [place], [address] Potassium [Moles/Vol] 3.4 mmol/L Low 3.5-5.1 [facility] Comment on above: Performed By: #### L 500.4050, L100.0100 ####[facility] [address] [place], [address] Sodium [Moles/Vol] 140 mmol/L Normal 136-145 [facility] Comment on above: Performed By: #### L 500.4050, L100.0100 ####[facility] [address] [place], [address] T PROT 7.0 g/dL Normal 6.4-8.2 [facility] Comment on above: Performed By: #### L 500.4050, L100.0100 ####[facility] [address] [place], [address] Urea nitrogen [Mass/Vol] 33 mg/dL High 7-18 [facility] Comment on above: Performed By: #### L 500.4050, L100.0100 ####[facility] [address] [place], [address] M100.678on 08-03-2024 M100.678 SARS-CoV-2 (COVID 19 ) Negative INFLUENZA A Negative INFLUENZA B Negative RSV PCR Negative Normal [facility] Comment on above: Performed By: #### M 100.678 ####[facility] [address] [place], [address] 12 Lead EKGon 08-02-2024 12 Lead EKG Normal [facility] ALP [Catalytic activity/Vol] Ordered By: Dariel Combs on 08-02-2024 Serum or plasma alkaline phosphatase measurement 131 U/L High 45-117 [facility] ALT [Catalytic activity/Vol] Ordered By: Dariel Combs on 08-02-2024 Serum or plasma alanine aminotransferase (ALT) measurement 24 U/L 13-56 [facility] Absolute lymphocyte countOrd ered By: Dariel Combs on 08-02-2024 Lymphocytes Auto (Unsp spec) [#/Vol] 1.24 10*3/uL 0.83-4.51 [facility] Absolute neutrophil countOrd ered By: Dariel Combs on 08-02-2024 Absolute neutrophil count 8.0 X10^3/uL High 2.0-7.7 [facility] Albumin [Mass/Vol]Ordered By : Dariel Combs on 08-02-2024 Serum or plasma albumin measurement (mass/volume) 3.3 g/dL 3.2-5.0 [facility] Albumin to globulin ratioOrd ered By: Dariel Combs on 08-02-2024 Albumin to globulin ratio 0.9 RATIO 0.9-2.4 [facility] Automated lymphocyte count a s percentage of total leukocytesOrdered By: Dariel Combs on 08-02-2024 Lymphocytes/100 WBC Auto (Unsp spec) 11.4 % Low 19-41 [facility] Basophil percentageOrdered B y: Dariel Combs on 08-02-2024 Basophils/100 WBC (Bld) 0.5 % 0-1 [facility]ophil [facility] 0.5 % 0-1 [facility] Bilirubin, totalOrdered By: Dariel Combs on 08-02-2024 Bilirubin [Mass/Vol] 0.40 mg/dL 0.20-1.00 [facility] Bilirubin, total 0.40 mg/dL 0.20-1.00 [facility] Blood urea nitrogen (BUN)/cr eatinine ratioOrdered By: Dariel Combs on 08-02-2024 Blood urea nitrogen (BUN)/creatinine ratio 9.1 RATIO Low 10-20 [facility] Calcium [Mass/Vol]Ordered By : Dariel Combs on 08-02-2024 Serum or plasma calcium measurement (mass/volume) 8.9 mg/dL 8.5-10.1 [facility] Carbon dioxide measurementOr dered By: Dariel Combs on 08-02-2024 CO2 [Moles/Vol] 28.0 mmol/L 21.0-32.0 [facility] Carbon dioxide measurement 28.0 mmol/L 21.0-32.0 [facility] Chest PA and Lateralon 08-02 Chest PA and Lateral Normal [facility] Chloride measurementOrdered By: Dariel Combs on 08-02-2024 Chloride [Moles/Vol] 102 mmol/L 98-107 [facility] Chloride measurement 102 mmol/L 98-107 [facility] Creatinine [Mass/Vol]Ordered By: Dariel Combs on 08-02-2024 Serum or plasma creatinine measurement (mass/volume) 3.63 mg/dL High 0.55-1.02 [facility] Emergency Department Summary on 08-02-2024 Emergency Department Summary Normal [facility] Eosinophil percentageOrdered By: Dariel Combs on 08-02-2024 Eosinophils/100 WBC (Bld) 4.2 % 0-5 [facility] Eosinophil percentage 4.2 % 0-5 [facility] Erythrocyte distribution wid th (RBC) [Entitic vol]Ordered By: Dariel Combs on 08-02-2024 Erythrocyte distribution width standard deviation 47.0 fl High 35.1-43.9 [facility] Erythrocyte distribution wid th (RBC) [Ratio]Ordered By: Dariel Combs on 08-02-2024 Erythrocyte distribution width ratio 15.4 % High 11.6-14.6 [facility] Erythrocyte distribution wid th ratioOrdered By: Dariel Combs on 08-02-2024 Erythrocyte distribution width (RBC) [Ratio] 15.4 % High 11.6-14.6 [facility] Erythrocyte distribution wid th standard deviationOrdered By: Dariel Combs on 08-02-2024 Erythrocyte distribution width (RBC) [Ratio] 47.0 fl High 35.1-43.9 [facility] Estimated glomerular filtrat ion rate (GFR) AmericanOrdered By: Dariel Combs on 08-02-2024 Estimated glomerular filtration rate (GFR) 16 mL/min Low >60 [facility] Estimation of creatinine magdiel aranceOrdered By: Dariel Combs on 08-02-2024 Estimation of creatinine clearance 13.48 ml/min [facility] Glomerular filtration rate ( GFR) estimationOrdered By: Dariel Combs on 08-02-2024 GFR/1.73 sq M.predicted among non-blacks MDRD (S/P/Bld) [Vol rate/Area] 13 mL/min/{1.73_m2} Low >60 [facility] Glomerular filtration rate (GFR) estimation 13 mL/min Low >60 [facility] Glucose measurementOrdered B y: Dariel Combs on 08-02-2024 Glucose [Mass/Vol] 115 mg/dL High 74-106 [facility] Glucose measurement 115 mg/dL High 74-106 [facility] Hematocrit Auto (Bld) [Volum e fraction]Ordered By: Dariel Combs on 08-02-2024 Hematocrit (Bld) [Volume fraction] 28.5 % Low 37-47 [facility] Automated blood hematocrit (percentage) 28.5 % Low 37-47 [facility] Hemoglobin measurementOrdere d By: Dariel Combs on 08-02-2024 Hemoglobin (Bld) [Mass/Vol] 9.2 g/dL Low 12.0-15.0 [facility] Hemoglobin measurement 9.2 g/dL Low 12.0-15.[address] [facility] Immature granulocytes/100 WB C Auto (Bld)Ordered By: Dariel Combs on 08-02-2024 Immature granulocytes/100 WBC (Bld) 1.200 % High 0.0-0.9 [facility] Automated immature granulocyte percentage 1.200 % High 0.0-0.9 [facility] Influenza virus A and B and SARS-CoV-2 (COVID-19) and Respiratory syncytial virus RNAOrdered By: Dariel Combs on 08-02-2024 SARS-CoV-2 (COVID-19) RNA FOZIA+probe Ql (Unsp spec) [facility] Lymphocytes Auto (Unsp spec) [#/Vol]Ordered By: Dariel Combs on 08-02-2024 Absolute lymphocyte count 1.24 X10^3/uL 0.83-4.51 [facility] Lymphocytes/100 WBC Auto (Un sp spec)Ordered By: Dariel Combs on 08-02-2024 Automated lymphocyte count as percentage of total leukocytes 11.4 % Low 19-41 [facility] MCV (RBC) [Entitic vol]Order ed By: Dariel Combs on 08-02-2024 MCV (mean corpuscular volume) determination 95.3 fL 81-99 [facility] MCV (mean corpuscular volume ) determinationOrdered By: Dariel Combs on 08-02-2024 MCV (RBC) [Entitic vol] 95.3 fL 81-99 [facility] Mean corpuscular hemoglobin (MCH) determinationOrdered By: Dariel Combs on 08-02-2024 MCH (RBC) [Entitic mass] 30.8 pg 27.0-32.0 [facility] Mean corpuscular hemoglobin (MCH) determination 30.8 pg 27.0-32.0 [facility] Mean corpuscular hemoglobin concentration (MCHC) determinationOrdered By: Dariel Combs on 08-02-2024 Mean corpuscular hemoglobin concentration (MCHC) determination 32.3 g/dL 32-36 [facility] Mean platelet volume determi nationOrdered By: Dariel Combs on 08-02-2024 Mean platelet volume determination 9.3 fl 6.2-12.0 [facility] Monocyte percentageOrdered B y: Dariel Combs on 08-02-2024 Monocytes/100 WBC (Bld) 8.8 % 0-10 [facility] Monocyte percentage 8.8 % 0-10 [facility] Neutrophil percentageOrdered By: Dariel Combs on 08-02-2024 Neutrophils/100 WBC (Bld) 73.9 % High 47-70 [facility] Neutrophil percentage 73.9 % High 47-70 [facility] No Panel InformationOrdered By: Dariel Combs on 08-02-2024 12 U/L Low 15-37 [facility] Nucleated red blood cell per centageOrdered By: Dariel Combs on 08-02-2024 Nucleated red blood cell percentage 0 % 0-5 [facility] Platelet countOrdered By: Angel Combs on 08-02-2024 Platelets (Bld) [#/Vol] 289 10*3/uL 150-450 [facility] Platelet count 289 K/mm3 150-450 [facility] Potassium measurementOrdered By: Dariel Combs on 08-02-2024 Potassium [Moles/Vol] 3.4 mmol/L Low 3.5-5.1 [facility] Potassium measurement 3.4 mmol/L Low 3.5-5.1 [facility] RBC Auto (Bld) [#/Vol]Ordere d By: Dariel Combs on 08-02-2024 RBC (Bld) [#/Vol] 2.99 10*6/uL Low 4.2-5.4 [facility] Automated blood erythrocyte count 2.99 M/mm3 Low 4.2-5.4 [facility] Serum anion gap measurementO rdered By: Dariel Combs on 08-02-2024 Serum anion gap measurement 10 5-15 [facility] Serum globulin measurementOr dered By: Dariel Combs on 08-02-2024 Globulin (S) [Mass/Vol] 3.7 g/dL 2.2-4.2 [facility] Serum globulin measurement 3.7 g/dL 2.2-4.2 [facility] Serum or plasma alanine [place] otransferase (ALT) measurementOrdered By: Dariel Combs on 08-02-2024 ALT [Catalytic activity/Vol] 24 U/L 13-56 [facility] Serum or plasma albumin rena urement (mass/volume)Ordered By: Dariel Combs on 08-02-2024 Albumin [Mass/Vol] 3.3 g/dL 3.2-5.0 [facility] Serum or plasma alkaline malka sphatase measurementOrdered By: Dariel Combs on 08-02-2024 ALP [Catalytic activity/Vol] 131 U/L High 45-117 [facility] Serum or plasma calcium rena urement (mass/volume)Ordered By: Dariel Combs on 08-02-2024 Calcium [Mass/Vol] 8.9 mg/dL 8.5-10.1 [facility] Serum or plasma creatinine m easurement (mass/volume)Ordered By: Dariel Combs on 08-02-2024 Creatinine [Mass/Vol] 3.63 mg/dL High 0.55-1.02 [facility] Serum or plasma urea nitroge n measurement (mass/volume)Ordered By: Dariel Combs on 08-02-2024 Urea nitrogen [Mass/Vol] 33 mg/dL High 718 [facility] Sodium levelOrdered By: Dariel Combs on 08-02-2024 Sodium [Moles/Vol] 140 mmol/L 136-145 [facility] Sodium level 140 mmol/L 136-145 [facility] Total proteinOrdered By: Blaine Combs on 08-02-2024 Protein [Mass/Vol] 7.0 g/dL 6.4-8.2 [facility] Total protein 7.0 g/dL 6.4-8.2 [facility] Urea nitrogen [Mass/Vol]Orde red By: Dariel Combs on 08-02-2024 Serum or plasma urea nitrogen measurement (mass/volume) 33 mg/dL High 7-18 [facility] White blood cell (WBC) count Ordered By: Dariel Combs on 08-02-2024 WBC (Bld) [#/Vol] 10.8 10*3/uL 4.4-11.0 [facility] White blood cell (WBC) count 10.8 K/mm3 4.4-11.0 [facility] CNPNon 08-01-2024 MARIANN Telephone ([facility]) SNEHA CARDENAS ([id number]) 1955 F Date Time Provider Department 08/01/24 JULIO DRAPER INTMWS During your visit today, we recorded the following information about you: Genna Lowry RN 08/01/2024 4:45 PM Signed Nathaly from [facility] calls and reports that she just spoke with patient. Patient currently has a temperature of 100.2 which was taken at 4 pm. Last tylenol that was taken was at 1:30 pm. Patient has not complaints of shortness of breath. O2 is 94-96 on 3 liters of oxygen. Patient had dialysis today and 1600 ml of fluid was pulled off. Home Health nursing is visiting patient already tomorrow. Please review and advise, JAMI Cannon Victor H, MD 08/01/2024 6:11 PM Signed Patient given extra dose of antibiotic yesterday. Continue monitoring for fever or development of new symptoms. Anushka Alexis LPN 08/02/2024 8:23 AM Signed Nathaly/[facility] Nurse notified of below, going out to the home this morning. Anushka Alexis LPN Allergies As of Date: 08/01/2024 Noted Allergy Reaction KEFLEX (CEPHALEXIN) 10/04/2005 5 - Intolerance Comments: Tachycardia, palpitations. VANCOMYCIN 06/07/2024 4 - Hives Date Reviewed: 07/31/2024 Reviewed by: Anushka Alexis LPN - Fully Assessed Reason for Visit: Patient Update [1234] Prescriptions as of 08/02/2024 - guaiFENesin (ROBITUSSIN) 100 mg/5 mL syrup Take 30 mL by mouth two times a day. - isosorbide mononitrate ER (IMDUR) 60 mg 24 hr tablet Take 1 tablet by mouth once daily. - montelukast (SINGULAIR) 10 mg tablet Take 1 tablet by mouth daily at bedtime. - sucralfate (CARAFATE) 1 gram tablet Take 1 tablet by mouth two times a day. - pantoprazole DR (PROTONIX) 40 mg tablet Take 1 tablet by mouth once daily. - albuterol HFA (PROAIR HFA) 90 mcg/actuation inhaler Inhale 2 Puffs as instructed every 4 hours as needed for wheezing/shortness of breath. - atorvastatin (LIPITOR) 40 mg tablet Take 1 tablet by mouth daily at bedtime. For cholesterol. - busPIRone (BUSPAR) 10 mg tablet Take 1 tablet by mouth two times a day. - rrlizfstvg-qtqpailr-ur rmoterol (BREZTRI) 160-9-4.8 mcg/actuation HFA aerosol inhaler Inhale 2 Puffs as instructed two times a day. - fluticasone (FLONASE) 50 mcg/actuation nasal spray Use 2 Sprays in each nostril once daily. Rinse mouth after use. - ondansetron orally disintegrating (ZOFRAN ODT) 4 mg disintegrating tablet Take 1 tablet by mouth every 8 hours as needed for nausea/vomiting. - OXYGEN, HOME THERAPY, Inhale 3 L/min as instructed as directed. 3L NC continuous, up to 4L with exertion - acetaminophen (TYLENOL) 325 mg tablet Take 650 mg by mouth every 6 hours as needed. - nitroglycerin sublingual (NITROSTAT) 0.4 mg SL tablet Dissolve 0.4 mg under the tongue every 5 minutes as needed for chest pain. - polyethylene glycol 3350 (MIRALAX) 17 gram/dose powder Take 17 g by mouth as needed for constipation. Dissolve dose in 4 - 8 ounces of liquid and take as directed. - ipratropium-albuterol (DUONEB) 0.5 mg-3 mg(2.5 mg base)/3 mL nebu Inhale 3 mL as instructed every 4 hours as needed for wheezing/shortness of breath. Problem List As Of Date 08/01/2024 Noted Resolved Tobacco use disorder [F17.200] 11/02/2007 02/10/2017 Essential tremor [G25.0] 11/02/2007 Other specified disorder of gallbladder [K82.8] 12/11/2007 07/20/2012 Unspecified gastritis and gastroduodenitis with*02/09/2010 07/15/2015 Blood in stool [K92.1] 02/09/2010 07/20/2012 Loss of weight [R63.4] 02/09/2010 07/20/2012 Upper GI bleed [K92.2] 02/09/2010 04/12/2024 Acute gastritis without mention of hemorrhage [*02/09/2010 07/20/2012 Essential hypertension, benign [I10] 05/17/2011 07/15/2015 Migraine headache [G43.909] 07/15/2015 Irritable bowel syndrome [K58.9] 07/15/2015 Scoliosis [M41.9] 02/10/2017 Environmental allergies [Z91.09] History of colon polyps [Z86.0100] 07/15/2015 Chronic obstructive pulmonary disease (HCC) [J4*07/25/2012 Cervical disc disorder with radiculopathy [M50.*08/15/2015 02/10/2017 DDD (degenerative disc disease), cervical [M50.*08/15/2015 02/10/2017 Primary hypertension [I10] 06/03/2016 Asthma [J45.909] 02/15/2019 Hyperlipidemia [E78.5] 02/15/2019 Age-related osteoporosis without current pathol*08/28/2021 Hypoxemia [R09.02] 05/01/2021 08/25/2023 Lung nodule [R91.1] 05/12/2021 Elevated blood pressure reading [R03.0] 05/03/2022 08/25/2023 Chronic respiratory failure with hypoxia (HCC) *11/05/2022 Duodenal ulcer [K26.9] 06/30/2023 Paroxysmal atrial fibrillation (HCC) [I48.0] 06/30/2023 Pneumonia due to infectious organism [J18.9] 06/30/2023 04/12/2024 Anemia requiring transfusions [D64.9] 07/01/2023 Acute on chronic hypoxic respiratory failure (H*07/09/2023 08/25/2023 Empyema (HCC) [J86.9] 07/09/2023 08/25/2023 Dysphagia [R13.10] 07/09/2023 Shock, septic (HCC) (more content not included)... Normal [facility] CNOVon 07-31-2024 CNOV Office Visit (INTMWS ) SNEHA CARDENAS ([id number]) 1955 F Date Time Provider Department 07/31/24 11:00 AM JULIO DRAPER INTMWS During your visit today, we recorded the following information about you: Temperature Pulse Blood pressure Weight 96.5 degrees 92/minute 136/64 62.1 kg Julio Draper MD 08/01/2024 12:12 AM Signed This note was created using [employer]. Subjective Transitional Care Management Progress Note The patients TCM visit was performed within the 7 days of discharge. Patient's Date of discharge: 07/27/24 Date of initial coordinator contact after discharge: 07/30/24 Discharge diagnosis: sepsis, RLL pneumonia, COPD exacerbation, ESRD. Medication review completed Yes Provider Documentation: In follow-up of hospitalization, Sneha Cardenas is a 69 year old female with the chief complaint of transition of care. I have reviewed the patient?s last hospital course including diagnostic testing performed during this hospitalization, their discharge medications, and my assessment and plan with the patient and spouse present at today?s visit. Sneha was admitted for sepsis, acute on chronic respiratory failure, RLL pneumonia, COPD exacerbation, and ESRD. CXR and CT of the chest showed pneumonia, no PE. Anemia was stable. Hyperkalemia was corrected during dialysis. Nephrology and ID specialists were consulted. IV antibiotics were switched to one dose of Cefdinir this weekend. She was feeling much better, but notes low grade fever 2 days ago. She went for dialysis yesterday. She was having difficulty swallowing Mucinex tablet. Review of Systems Constitutional: Positive for fever. Negative for chills and diaphoresis. HENT: Negative for congestion and sore throat. Respiratory: Positive for cough. Negative for chest tightness, shortness of breath and wheezing. Cardiovascular: Negative for chest pain. Gastrointestinal: Negative for diarrhea, nausea and vomiting. ACTIVE PROBLEM LIST Essential Tremor Environmental Allergies Chronic Obstructive Pulmonary Disease (Hcc) Primary Hypertension Hyperlipidemia Age-Related Osteoporosis Without Current Pathological Fracture Lung Nodule Chronic Respiratory Failure With Hypoxia (Hcc) Duodenal Ulcer Paroxysmal Atrial Fibrillation (Hcc) Anemia Requiring Transfusions Dysphagia Former Smoker Nstemi (Non-St Elevated Myocardial Infarction) (Hcc) Pleural Effusion Malnutrition of Mild Degree (Hcc) Esrd (End Stage Renal Disease) (Hcc) Coronary Artery Disease Anxiety About Health Social History Tobacco Use Smoking status: Former Current packs/day: 0.00 Average packs/day: 0.5 packs/day for 42.0 years (21.0 ttl pk-yrs) Types: Cigarettes Start date: 1974 Quit date: 05/23/2016 Years since quittin.1 Smokeless tobacco: Never Tobacco comments: Resumed short period. Quit for good 05/2016. Vaping Use Vaping status: Never Used Substance Use Topics Alcohol use: No Drug use: No Current Outpatient Medications Medication Sig isosorbide mononitrate ER (IMDUR) 60 mg 24 hr tablet Take 1 tablet by mouth once daily. montelukast (SINGULAIR) 10 mg tablet Take 1 tablet by mouth daily at bedtime. sucralfate (CARAFATE) 1 gram tablet Take 1 tablet by mouth two times a day. pantoprazole DR (PROTONIX) 40 mg tablet Take 1 tablet by mouth once daily. albuterol HFA (PROAIR HFA) 90 mcg/actuation inhaler Inhale 2 Puffs as instructed every 4 hours as needed for wheezing/shortness of breath. atorvastatin (LIPITOR) 40 mg tablet Take 1 tablet by mouth daily at bedtime. For cholesterol. busPIRone (BUSPAR) 10 mg tablet Take 1 tablet by mouth two times a day. uiiqpnxplb-vusvvkqa-xj rmoterol (BREZTRI) 160-9-4.8 mcg/actuation HFA aerosol inhaler Inhale 2 Puffs as instructed two times a day. fluticasone (FLONASE) 50 mcg/actuation nasal spray Use 2 Sprays in each nostril once daily. Rinse mouth after use. ondansetron orally disintegrating (ZOFRAN ODT) 4 mg disintegrating tablet Take 1 tablet by mouth every 8 hours as needed for nausea/vomiting. OXYGEN, HOME THERAPY, Inhale 3 L/min as instructed as directed. 3L NC continuous, up to 4L with exertion acetaminophen (TYLENOL) 325 mg tablet Take 650 mg by mouth every 6 hours as needed. nitroglycerin sublingual (NITROSTAT) 0.4 mg SL tablet Dissolve 0.4 mg under the tongue every 5 minutes as needed for chest pain. polyethylene glycol 3350 (MIRALAX) 17 gram/dose powder Take 17 g by mouth as needed for constipation. Dissolve dose in 4 - 8 ounces of liquid and take as directed. ipratropium-albuterol (DUONEB) 0.5 mg-3 mg(2.5 mg base)/3 mL nebu Inhale 3 mL as instructed every 4 hours as needed for wheezing/shortness of breath. (Patient taking differently: Inhale 3 mL as instructed every 6 hours as needed for wheezing/shortness of breath.) guaiFENesin (ROBITUSSIN) 100 mg/5 mL syrup (more content not included)... Normal [facility] Basic Metabolic Profile (BMP )on 07-30-2024 BUN Normal 7-18 [facility] Comment on above: Result Comment: Canc elled via OM: Order cancelled - Patient discharged Performed By: #### L 100.0100, L500.2500 ####[facility] [address] [facility] [address] BUN/CRE Normal 10-20 [facility] Comment on above: Result Comment: Canc elled via OM: Order cancelled - Patient discharged Performed By: #### L 100.0100, L500.2500 ####[facility] [address] [place], [address] CA,Total Normal 8.5-10.1 [facility] Comment on above: Result Comment: Canc elled via OM: Order cancelled - Patient discharged Performed By: #### L 100.0100, L500.2500 ####[facility] [address] [facility] [address] CL Normal 98-107 [facility] Comment on above: Result Comment: Canc elled via OM: Order cancelled - Patient discharged Performed By: #### L 100.0100, L500.2500 ####[facility] [address] [facility] [address] CO2 Normal 21.0-32.0 [facility] Comment on above: Result Comment: Canc elled via OM: Order cancelled - Patient discharged Performed By: #### L 100.0100, L500.2500 ####[facility] [address] [place], [address] CREAT,SERUM Normal 0.55-1.02 [facility] Comment on above: Result Comment: Canc elled via OM: Order cancelled - Patient discharged Performed By: #### L 100.0100, L500.2500 ####[facility] [address] [place], [address] EST GFR Normal >60 [facility] Comment on above: Result Comment: Canc elled via OM: Order cancelled - Patient discharged Performed By: #### L 100.0100, L500.2500 ####[facility] [address] [place], [address] EST GFR - AA Normal >60 [facility] Comment on above: Result Comment: Canc elled via OM: Order cancelled - Patient discharged Performed By: #### L 100.0100, L500.2500 ####[facility] [address] [place], [address] GAP Normal 5-15 [facility] Comment on above: Result Comment: Canc elled via OM: Order cancelled - Patient discharged Performed By: #### L 100.0100, L500.2500 ####[facility] [address] [place], [address] GLU Normal 74-106 [facility] Comment on above: Result Comment: Canc elled via OM: Order cancelled - Patient discharged Performed By: #### L 100.0100, L500.2500 ####[facility] [address] [place], [address] Potassium Normal 3.5-5.1 [facility] Comment on above: Result Comment: Canc elled via OM: Order cancelled - Patient discharged Performed By: #### L 100.0100, L500.2500 ####[facility] [address] [place], [address] Basic Metabolic Profile (BMP) Normal 136-145 [facility] Comment on above: Result Comment: Canc elled via OM: Order cancelled - Patient discharged Performed By: #### L 100.0100, L500.2500 ####[facility] [address] [place], [address] CBC W/Diff, Automatedon - Absolute Neut Normal 2.0-7.7 [facility] Comment on above: Result Comment: Canc elled via OM: Order cancelled - Patient discharged Performed By: #### L 100.0100, L500.2500 ####[facility] [address] [place], [address] HCT Normal 37-47 [facility] Comment on above: Result Comment: Canc elled via OM: Order cancelled - Patient discharged Performed By: #### L 100.0100, L500.2500 ####[facility] [address] [place], [address] HGB Normal 12.0-15.0 [facility] Comment on above: Result Comment: Canc elled via OM: Order cancelled - Patient discharged Performed By: #### L 100.0100, L500.2500 ####[facility] [address] [place], [address] MCH Normal 27.0-32.0 [facility] Comment on above: Result Comment: Canc elled via OM: Order cancelled - Patient discharged Performed By: #### L 100.0100, L500.2500 ####[facility] [address] [place], [address] MCHC Normal 32-36 [facility] Comment on above: Result Comment: Canc elled via OM: Order cancelled - Patient discharged Performed By: #### L 100.0100, L500.2500 ####[facility] [address] [place], [address] MCV Normal 81-99 [facility] Comment on above: Result Comment: Canc elled via OM: Order cancelled - Patient discharged Performed By: #### L 100.0100, L500.2500 ####[facility] [address] [place], [address] NEUT% Normal 47-70 [facility] Comment on above: Result Comment: Canc elled via OM: Order cancelled - Patient discharged Performed By: #### L 100.0100, L500.2500 ####[facility] [address] [place], [address] PLT Normal 150-450 [facility] Comment on above: Result Comment: Canc elled via OM: Order cancelled - Patient discharged Performed By: #### L 100.0100, L500.2500 ####[facility] [address] [place], [address] RBC Normal 4.2-5.4 [facility] Comment on above: Result Comment: Canc elled via OM: Order cancelled - Patient discharged Performed By: #### L 100.0100, L500.2500 ####[facility] [address] [place], [address] RDW CV Normal 11.6-14.6 [facility] Comment on above: Result Comment: Canc elled via OM: Order cancelled - Patient discharged Performed By: #### L 100.0100, L500.2500 ####[facility] [address] [place], [address] RDW SD Normal 35.1-43.9 [facility] Comment on above: Result Comment: Canc elled via OM: Order cancelled - Patient discharged Performed By: #### L 100.0100, L500.2500 ####[facility] [address] [place], [address] WBC Normal 4.4-11.0 [facility] Comment on above: Result Comment: Canmartha gabriele via OM: Order cancelled - Patient discharged Performed By: #### L 100.0100, L500.2500 ####[facility] [address] [place], [address] CNPNon 07-30-2024 CNPN Telephone (INTMWS) SNEHA CARDENAS ([id number]) 1955 F Date Time Provider Department 07/30/24 JULIO DRAPER INTMWS During your visit today, we recorded the following information about you: Annette Farr LPN 07/30/2024 4:00 PM Signed Nelson with [facility] , nursing calling with plan of care. He did a resumption of care for pt today. They will see pt 2 times a week for 2 weeks then 1 time a week for 2 weeks. DX Pneumonia, COPD . Pt was d/c and to take Mucinex but pt is not going to take the this because they are to large and she can't swallow them. Per pt she feels a little better and does not feel she needs this. No call back needed as long as you agree with above. Annette Farr LPN Allergies As of Date: 07/30/2024 Noted Allergy Reaction KEFLEX (CEPHALEXIN) 10/04/2005 5 - Intolerance Comments: Tachycardia, palpitations. VANCOMYCIN 06/07/2024 4 - Hives Date Reviewed: 07/18/2024 Reviewed by: Anushka Alexis LPN - Fully Assessed Reason for Visit: [facility] [Other] [facility], nursing plan of care [Other] Prescriptions as of 07/31/2024 - predniSONE (DELTASONE) 10 mg tablet TAKE BY MOUTH 4 TABLETS DAILY FOR 2 DAYS, THEN 3 TABLETS DAILY FOR 2 DAYS, THEN 2 TABLETS DAILY FOR 2 DAYS, THEN 1 TABLET DAILY FOR 2 DAYS. - isosorbide mononitrate ER (IMDUR) 60 mg 24 hr tablet Take 1 tablet by mouth once daily. - montelukast (SINGULAIR) 10 mg tablet Take 1 tablet by mouth daily at bedtime. - sucralfate (CARAFATE) 1 gram tablet Take 1 tablet by mouth two times a day. - pantoprazole DR (PROTONIX) 40 mg tablet Take 1 tablet by mouth once daily. - albuterol HFA (PROAIR HFA) 90 mcg/actuation inhaler Inhale 2 Puffs as instructed every 4 hours as needed for wheezing/shortness of breath. - atorvastatin (LIPITOR) 40 mg tablet Take 1 tablet by mouth daily at bedtime. For cholesterol. - busPIRone (BUSPAR) 10 mg tablet Take 1 tablet by mouth two times a day. - sdumepnfft-apifbbbt-pe rmoterol (BREZTRI) 160-9-4.8 mcg/actuation HFA aerosol inhaler Inhale 2 Puffs as instructed two times a day. - fluticasone (FLONASE) 50 mcg/actuation nasal spray Use 2 Sprays in each nostril once daily. Rinse mouth after use. - ondansetron orally disintegrating (ZOFRAN ODT) 4 mg disintegrating tablet Take 1 tablet by mouth every 8 hours as needed for nausea/vomiting. - OXYGEN, HOME THERAPY, Inhale 3 L/min as instructed as directed. 3L NC continuous, up to 4L with exertion - acetaminophen (TYLENOL) 325 mg tablet Take 650 mg by mouth every 6 hours as needed. - nitroglycerin sublingual (NITROSTAT) 0.4 mg SL tablet Dissolve 0.4 mg under the tongue every 5 minutes as needed for chest pain. - polyethylene glycol 3350 (MIRALAX) 17 gram/dose powder Take 17 g by mouth as needed for constipation. Dissolve dose in 4 - 8 ounces of liquid and take as directed. - ipratropium-albuterol (DUONEB) 0.5 mg-3 mg(2.5 mg base)/3 mL nebu Inhale 3 mL as instructed every 4 hours as needed for wheezing/shortness of breath. Problem List As Of Date 07/30/2024 Noted Resolved Tobacco use disorder [F17.200] 11/02/2007 02/10/2017 Essential tremor [G25.0] 11/02/2007 Other specified disorder of gallbladder [K82.8] 12/11/2007 07/20/2012 Unspecified gastritis and gastroduodenitis with*02/09/2010 07/15/2015 Blood in stool [K92.1] 02/09/2010 07/20/2012 Loss of weight [R63.4] 02/09/2010 07/20/2012 Upper GI bleed [K92.2] 02/09/2010 04/12/2024 Acute gastritis without mention of hemorrhage [*02/09/2010 07/20/2012 Essential hypertension, benign [I10] 05/17/2011 07/15/2015 Migraine headache [G43.909] 07/15/2015 Irritable bowel syndrome [K58.9] 07/15/2015 Scoliosis [M41.9] 02/10/2017 Environmental allergies [Z91.09] History of colon polyps [Z86.0100] 07/15/2015 Chronic obstructive pulmonary disease (HCC) [J4*07/25/2012 Cervical disc disorder with radiculopathy [M50.*08/15/2015 02/10/2017 DDD (degenerative disc disease), cervical [M50.*08/15/2015 02/10/2017 Primary hypertension [I10] 06/03/2016 Asthma [J45.909] 02/15/2019 Hyperlipidemia [E78.5] 02/15/2019 Age-related osteoporosis without current pathol*08/28/2021 Hypoxemia [R09.02] 05/01/2021 08/25/2023 Lung nodule [R91.1] 05/12/2021 Elevated blood pressure reading [R03.0] 05/03/2022 08/25/2023 Chronic respiratory failure with hypoxia (HCC) *11/05/2022 Duodenal ulcer [K26.9] 06/30/2023 Paroxysmal atrial fibrillation (HCC) [I48.0] 06/30/2023 Pneumonia due to infectious organism [J18.9] 06/30/2023 04/12/2024 Anemia requiring transfusions [D64.9] 07/01/2023 Acute on chronic hypoxic respiratory failure (H*07/09/2023 08/25/2023 Empyema (HCC) [J86.9] 07/09/2023 08/25/2023 Dysphagia [R13.10] 07/09/2023 Shock, septic (HCC) [A41.9, R65.21] 07/11/2023 08/25/2023 Antibiotic-associated diarrhea [K52.1, T36.95XA]07/14/2023 04/12/2024 Pulmonary emphysema (HCC) [J43.9] 07/19/2023 04/12/20 (more content not included)... Normal [facility] Basic Metabolic Profile (BMP )on 07-29-2024 BUN Normal 7-18 [facility] Comment on above: Result Comment: Canc elled via OM: Order cancelled - Patient discharged Performed By: #### L 100.0100, L500.2500 ####[facility] [address] [place], [address] BUN/CRE Normal 10-20 [facility] Comment on above: Result Comment: Canc elled via OM: Order cancelled - Patient discharged Performed By: #### L 100.0100, L500.2500 ####[facility] [address] [place], [address] CA,Total Normal 8.5-10.1 [facility] Comment on above: Result Comment: Canc elled via OM: Order cancelled - Patient discharged Performed By: #### L 100.0100, L500.2500 ####[facility] [address] [place], [address] CL Normal 98-107 [facility] Comment on above: Result Comment: Canc elled via OM: Order cancelled - Patient discharged Performed By: #### L 100.0100, L500.2500 ####[facility] [address] [place], [address] CO2 Normal 21.0-32.0 [facility] Comment on above: Result Comment: Canc elled via OM: Order cancelled - Patient discharged Performed By: #### L 100.0100, L500.2500 ####[facility] [address] [place], [address] CREAT,SERUM Normal 0.55-1.02 [facility] Comment on above: Result Comment: Canc elled via OM: Order cancelled - Patient discharged Performed By: #### L 100.0100, L500.2500 ####[facility] [address] [place], [address] EST GFR Normal >60 [facility] Comment on above: Result Comment: Canc elled via OM: Order cancelled - Patient discharged Performed By: #### L 100.0100, L500.2500 ####[facility] [address] [place], [address] EST GFR - AA Normal >60 [facility] Comment on above: Result Comment: Canc elled via OM: Order cancelled - Patient discharged Performed By: #### L 100.0100, L500.2500 ####[facility] [address] [place], [address] GAP Normal 5-15 [facility] Comment on above: Result Comment: Canc elled via OM: Order cancelled - Patient discharged Performed By: #### L 100.0100, L500.2500 ####[facility] [address] [place], [address] GLU Normal 74-106 [facility] Comment on above: Result Comment: Canc elled via OM: Order cancelled - Patient discharged Performed By: #### L 100.0100, L500.2500 ####[facility] [address] [place], [address] Potassium Normal 3.5-5.1 [facility] Comment on above: Result Comment: Canc elled via OM: Order cancelled - Patient discharged Performed By: #### L 100.0100, L500.2500 ####[facility] [address] [place], [address] Basic Metabolic Profile (BMP) Normal 136-145 [facility] Comment on above: Result Comment: Canc elled via OM: Order cancelled - Patient discharged Performed By: #### L 100.0100, L500.2500 ####[facility] [address] [place], [address] CBC W/Diff, Automatedon 01-2 Absolute Neut Normal 2.0-7.7 [facility] Comment on above: Result Comment: Canc elled via OM: Order cancelled - Patient discharged Performed By: #### L 100.0100, L500.2500 ####[facility] [address] [place], [address] HCT Normal 37-47 [facility] Comment on above: Result Comment: Canc elled via OM: Order cancelled - Patient discharged Performed By: #### L 100.0100, L500.2500 ####[facility] [address] [place], [address] HGB Normal 12.0-15.0 [facility] Comment on above: Result Comment: Canc elled via OM: Order cancelled - Patient discharged Performed By: #### L 100.0100, L500.2500 ####[facility] [address] [place], [address] MCH Normal 27.0-32.0 [facility] Comment on above: Result Comment: Canc elled via OM: Order cancelled - Patient discharged Performed By: #### L 100.0100, L500.2500 ####[facility] [address] [place], [address] MCHC Normal 32-36 [facility] Comment on above: Result Comment: Canc elled via OM: Order cancelled - Patient discharged Performed By: #### L 100.0100, L500.2500 ####[facility] [address] [place], [address] MCV Normal 81-99 [facility] Comment on above: Result Comment: Canc elled via OM: Order cancelled - Patient discharged Performed By: #### L 100.0100, L500.2500 ####[facility] [address] [place], [address] NEUT% Normal 47-70 [facility] Comment on above: Result Comment: Canc elled via OM: Order cancelled - Patient discharged Performed By: #### L 100.0100, L500.2500 ####[facility] [address] [place], [address] PLT Normal 150-450 [facility] Comment on above: Result Comment: Canc elled via OM: Order cancelled - Patient discharged Performed By: #### L 100.0100, L500.2500 ####[facility] [address] [place], [address] RBC Normal 4.2-5.4 [facility] Comment on above: Result Comment: Canc elled via OM: Order cancelled - Patient discharged Performed By: #### L 100.0100, L500.2500 ####[facility] [address] [place], [address] RDW CV Normal 11.6-14.6 [facility] Comment on above: Result Comment: Canc elled via OM: Order cancelled - Patient discharged Performed By: #### L 100.0100, L500.2500 ####[facility] [address] [place], [address] RDW SD Normal 35.1-43.9 [facility] Comment on above: Result Comment: Canc elled via OM: Order cancelled - Patient discharged Performed By: #### L 100.0100, L500.2500 ####[facility] [address] [place], [address] WBC Normal 4.4-11.0 [facility] Comment on above: Result Comment: Canc elled via OM: Order cancelled - Patient discharged Performed By: #### L 100.0100, L500.2500 ####[facility] [address] [place], [address] Basic Metabolic Profile (BMP )on 07-28-2024 BUN Normal 7-18 [facility] Comment on above: Result Comment: Canc elled via OM: Order cancelled - Patient discharged Performed By: #### L 500.2500, L100.0100 ####[facility] [address] [place], [address] BUN/CRE Normal 10-20 [facility] Comment on above: Result Comment: Canc elled via OM: Order cancelled - Patient discharged Performed By: #### L 500.2500, L100.0100 ####[facility] [address] [place], [address] CA,Total Normal 8.5-10.1 [facility] Comment on above: Result Comment: Canc elled via OM: Order cancelled - Patient discharged Performed By: #### L 500.2500, L100.0100 ####[facility] [address] [place], [address] CL Normal 98-107 [facility] Comment on above: Result Comment: Canc elled via OM: Order cancelled - Patient discharged Performed By: #### L 500.2500, L100.0100 ####[facility] [address] [place], [address] CO2 Normal 21.0-32.0 [facility] Comment on above: Result Comment: Canc elled via OM: Order cancelled - Patient discharged Performed By: #### L 500.2500, L100.0100 ####[facility] [address] [place], [address] CREAT,SERUM Normal 0.55-1.02 [facility] Comment on above: Result Comment: Canc elled via OM: Order cancelled - Patient discharged Performed By: #### L 500.2500, L100.0100 ####[facility] [address] [place], [address] EST GFR Normal >60 [facility] Comment on above: Result Comment: Canc elled via OM: Order cancelled - Patient discharged Performed By: #### L 500.2500, L100.0100 ####[facility] [address] [place], [address] EST GFR - AA Normal >60 [facility] Comment on above: Result Comment: Canc elled via OM: Order cancelled - Patient discharged Performed By: #### L 500.2500, L100.0100 ####[facility] [address] [place], [address] GAP Normal 5-15 [facility] Comment on above: Result Comment: Canc elled via OM: Order cancelled - Patient discharged Performed By: #### L 500.2500, L100.0100 ####[facility] [address] [place], [address] GLU Normal 74-106 [facility] Comment on above: Result Comment: Canc elled via OM: Order cancelled - Patient discharged Performed By: #### L 500.2500, L100.0100 ####[facility] [address] [place], [address] Potassium Normal 3.5-5.1 [facility] Comment on above: Result Comment: Canc elled via OM: Order cancelled - Patient discharged Performed By: #### L 500.2500, L100.0100 ####[facility] [address] [place], [address] Basic Metabolic Profile (BMP) Normal 136-145 [facility] Comment on above: Result Comment: Canc elled via OM: Order cancelled - Patient discharged Performed By: #### L 500.2500, L100.0100 ####[facility] [address] [place], [address] CBC W/Diff, Automatedon 01-2 Absolute Neut Normal 2.0-7.7 [facility] Comment on above: Result Comment: Canc elled via OM: Order cancelled - Patient discharged Performed By: #### L 500.2500, L100.0100 ####[facility] [address] [place], [address] HCT Normal 37-47 [facility] Comment on above: Result Comment: Canc elled via OM: Order cancelled - Patient discharged Performed By: #### L 500.2500, L100.0100 ####[facility] [address] [place], [address] HGB Normal 12.0-15.0 [facility] Comment on above: Result Comment: Canc elled via OM: Order cancelled - Patient discharged Performed By: #### L 500.2500, L100.0100 ####[facility] [address] [place], [address] MCH Normal 27.0-32.0 [facility] Comment on above: Result Comment: Canc elled via OM: Order cancelled - Patient discharged Performed By: #### L 500.2500, L100.0100 ####[facility] [address] [place], [address] MCHC Normal 32-36 [facility] Comment on above: Result Comment: Canc elled via OM: Order cancelled - Patient discharged Performed By: #### L 500.2500, L100.0100 ####[facility] [address] [place], [address] MCV Normal 81-99 [facility] Comment on above: Result Comment: Canc elled via OM: Order cancelled - Patient discharged Performed By: #### L 500.2500, L100.0100 ####[facility] [address] [place], [address] NEUT% Normal 47-70 [facility] Comment on above: Result Comment: Canc elled via OM: Order cancelled - Patient discharged Performed By: #### L 500.2500, L100.0100 ####[facility] [address] [place], [address] PLT Normal 150-450 [facility] Comment on above: Result Comment: Canc elled via OM: Order cancelled - Patient discharged Performed By: #### L 500.2500, L100.0100 ####[facility] [address] [place], [address] RBC Normal 4.2-5.4 [facility] Comment on above: Result Comment: Canc elled via OM: Order cancelled - Patient discharged Performed By: #### L 500.2500, L100.0100 ####[facility] [address] [place], [address] RDW CV Normal 11.6-14.6 [facility] Comment on above: Result Comment: Canc elled via OM: Order cancelled - Patient discharged Performed By: #### L 500.2500, L100.0100 ####[facility] [address] [place], [address] RDW SD Normal 35.1-43.9 [facility] Comment on above: Result Comment: Canc elled via OM: Order cancelled - Patient discharged Performed By: #### L 500.2500, L100.0100 ####[facility] [address] [place], [address] WBC Normal 4.4-11.0 [facility] Comment on above: Result Comment: Canc elled via OM: Order cancelled - Patient discharged Performed By: #### L 500.2500, L100.0100 ####[facility] [address] [place], [address] Culture, Blood (WB)on 2024 CUB Blood cultures x2, from two different sites No growth in 5 days. Normal [facility] Comment on above: Performed By: #### M 200.1000 ####[facility] [address] [place], [address] Absolute lymphocyte countOrd ered By: Gabby Sutherland on 07-27-2024 Lymphocytes Auto (Unsp spec) [#/Vol] 1.41 10*3/uL 0.83-4.51 [facility] Absolute neutrophil countOrd ered By: Gabby Sutherland on 07-27-2024 Absolute neutrophil count 6.9 X10^3/uL 2.0-7.7 [facility] Automated lymphocyte count a s percentage of total leukocytesOrdered By: Gabby Sutherland on 07-27-2024 Lymphocytes/100 WBC Auto (Unsp spec) 14.6 % Low 19-41 [facility] Basic Metabolic Profile (BMP )on 07-27-2024 BUN/CRE 13.0 RATIO Normal 10-20 [facility] Comment on above: Performed By: #### L 500.2500, L100.0100 ####[facility] [address] [place], [address] CA,Total 9.4 mg/dL Normal 8.5-10.1 [facility] Comment on above: Performed By: #### L 500.2500, L100.0100 ####[facility] [address] [place], [address] Chloride [Moles/Vol] 107 mmol/L Normal 98-107 [facility] Comment on above: Performed By: #### L 500.2500, L100.0100 ####[facility] [address] [place], [address] CO2 [Moles/Vol] 24.0 mmol/L Normal 21.0-32.0 [facility] Comment on above: Performed By: #### L 500.2500, L100.0100 ####[facility] [address] [place], [address] Creatinine [Mass/Vol] 3.55 mg/dL High 0.55-1.02 [facility] Comment on above: Result Comment: The validity of the calculated GFR GFRAA in patients over70 years has not been determined. Clinical correlation isessential. Performed By: #### L 500.2500, L100.0100 ####[facility] [address] [place], [address] ECRCL 13.10 ml/min Normal [facility] Comment on above: Performed By: #### L 500.2500, L100.0100 ####[facility] [address] [place], [address] EST GFR - AA 16 mL/min Low >60 [facility] Comment on above: Result Comment: Afri can Micronesian GFR Calc Performed By: #### L 500.2500, L100.0100 ####[facility] [address] [place], [address] GAP 8 Normal 5-15 [facility] Comment on above: Performed By: #### L 500.2500, L100.0100 ####[facility] [address] [place], [address] GFR/1.73 sq M.predicted among non-blacks MDRD (S/P/Bld) [Vol rate/Area] 14 mL/min/{1.73_m2} Low >60 [facility] Comment on above: Result Comment: Non- GFR Calc Performed By: #### L 500.2500, L100.0100 ####[facility] [address] [place], [address] Glucose [Mass/Vol] 84 mg/dL Normal 74-106 [facility] Comment on above: Performed By: #### L 500.2500, L100.0100 ####[facility] [address] [place], [address] Potassium [Moles/Vol] 3.8 mmol/L Normal 3.5-5.1 [facility] Comment on above: Performed By: #### L 500.2500, L100.0100 ####[facility] [address] [place], [address] Sodium [Moles/Vol] 139 mmol/L Normal 136-145 [facility] Comment on above: Performed By: #### L 500.2500, L100.0100 ####[facility] [address] [place], [address] Urea nitrogen [Mass/Vol] 46 mg/dL High 7-18 [facility] Comment on above: Performed By: #### L 500.2500, L100.0100 ####[facility] [address] [place], [address] Basophil percentageOrdered B y: Gabby Sutherland on 07-27-2024 Basophils/100 WBC (Bld) 0.4 % 0-1 [facility] Basophil percentage 0.4 % 0-1 [facility] Blood urea nitrogen (BUN)/cr eatinine ratioOrdered By: Gabby Sutherland on 07-27-2024 Blood urea nitrogen (BUN)/creatinine ratio 13.0 RATIO 10-20 [facility] CBC W/Diff, Automatedon 07-05 Absolute Lymph 1.41 X10 3/uL Normal 0.83-4.51 [facility] Comment on above: Performed By: #### L 500.2500, L100.0100 ####[facility] [address] [place], [address] Absolute Neut 6.9 X10 3/uL Normal 2.0-7.7 [facility] Comment on above: Performed By: #### L 500.2500, L100.0100 ####[facility] [address] [place], [address] Basophils/100 WBC (Bld) 0.4 % Normal 0-1 [facility] Comment on above: Performed By: #### L 500.2500, L100.0100 ####[facility] [address] [place], [address] Eosinophils/100 WBC (Bld) 5.3 % High 0-5 [facility] Comment on above: Performed By: #### L 500.2500, L100.0100 ####[facility] [address] [place], [address] Erythrocyte distribution width (RBC) [Ratio] 13.0 % Normal 11.6-14.6 [facility] Comment on above: Performed By: #### L 500.2500, L100.0100 ####[facility] [address] [place], [address] Hematocrit (Bld) [Volume fraction] 28.6 % Low 37-47 [facility] Comment on above: Performed By: #### L 500.2500, L100.0100 ####[facility] [address] [place], [address] Hemoglobin (Bld) [Mass/Vol] 8.9 g/dL Low 12.0-15.0 [facility] Comment on above: Performed By: #### L 500.2500, L100.0100 ####[facility] [address] [place], [address] IG% 1.300 High 0.0-0.9 [facility] Comment on above: Result Comment: IG% - Immature Granulocytes (promyelocytes, myelocytes andmetamyelocytes) > 1% indicates that a LEFT SHIFT is Present. Performed By: #### L 500.2500, L100.0100 ####[facility] [address] [place], [address] Lymphocytes/100 WBC (Bld) 14.6 % Low 19-41 [facility] Comment on above: Performed By: #### L 500.2500, L100.0100 ####[facility] [address] [place], [address] MCH (RBC) [Entitic mass] 30.1 pg Normal 27.0-32.0 [facility] Comment on above: Performed By: #### L 500.2500, L100.0100 ####[facility] [address] [place], [address] MCHC (RBC) [Mass/Vol] 31.1 g/dL Low 32-36 [facility] Comment on above: Performed By: #### L 500.2500, L100.0100 ####[facility] [address] [place], [address] MCV (RBC) [Entitic vol] 96.6 fL Normal 81-99 [facility] Comment on above: Performed By: #### L 500.2500, L100.0100 ####[facility] [address] [place], [address] Monocytes/100 WBC (Bld) 6.7 % Normal 0-10 [facility] Comment on above: Performed By: #### L 500.2500, L100.0100 ####[facility] [address] [place], [address] Neutrophils/100 WBC (Bld) 71.7 % High 47-70 [facility] Comment on above: Performed By: #### L 500.2500, L100.0100 ####[facility] [address] [place], [address] Nucleated RBC (Bld) [#/Vol] 0 10*3/uL Normal 0-5 [facility] Comment on above: Performed By: #### L 500.2500, L100.0100 ####[facility] [address] [place], [address] Platelet mean volume (Bld) [Entitic vol] 10.5 fL Normal 6.2-12.0 [facility] Comment on above: Performed By: #### L 500.2500, L100.0100 ####[facility] [address] [place], [address] Platelets (Bld) [#/Vol] 209 10*3/uL Normal 150-450 [facility] Comment on above: Performed By: #### L 500.2500, L100.0100 ####[facility] [address] [place], [address] RBC (Bld) [#/Vol] 2.96 10*6/uL Low 4.2-5.4 [facility] Comment on above: Performed By: #### L 500.2500, L100.0100 ####[facility] [address] [place], [address] RDW SD 46.2 fl High 35.1-43.9 [facility] Comment on above: Performed By: #### L 500.2500, L100.0100 ####[facility] [address] [place], [address] WBC (Bld) [#/Vol] 9.7 10*3/uL Normal 4.4-11.0 [facility] Comment on above: Performed By: #### L 500.2500, L100.0100 ####[facility] [address] [place], [address] Calcium [Mass/Vol]Ordered By : Gabby Sutherland on 07-27-2024 Serum or plasma calcium measurement (mass/volume) 9.4 mg/dL 8.5-10.1 [facility] Carbon dioxide measurementOr dered By: Gabby Sutherland on 07-27-2024 CO2 [Moles/Vol] 24.0 mmol/L 21.0-32.0 [facility] Carbon dioxide measurement 24.0 mmol/L 21.0-32.0 [facility] Chloride measurementOrdered By: Gabby Sutherland on 07-27-2024 Chloride [Moles/Vol] 107 mmol/L 98-107 [facility] Chloride measurement 107 mmol/L 98-107 [facility] Creatinine [Mass/Vol]Ordered By: Gabby Sutherland on 07-27-2024 Serum or plasma creatinine measurement (mass/volume) 3.55 mg/dL High 0.55-1.02 [facility] Discharge Instructionon 07-05 Discharge Instruction Normal [facility] Eosinophil percentageOrdered By: Gabby Sutherland on 07-27-2024 Eosinophils/100 WBC (Bld) 5.3 % High 0-5 [facility] Eosinophil percentage 5.3 % High 0-5 [facility] Erythrocyte distribution wid th (RBC) [Entitic vol]Ordered By: Gabyb Sutherland on 07-27-2024 Erythrocyte distribution width standard deviation 46.2 fl High 35.1-43.9 [facility] Erythrocyte distribution wid th (RBC) [Ratio]Ordered By: Gabby Sutherland on 07-27-2024 Erythrocyte distribution width ratio 13.0 % 11.6-14.6 [facility] Erythrocyte distribution wid th ratioOrdered By: Gabby Sutherland on 07-27-2024 Erythrocyte distribution width (RBC) [Ratio] 13.0 % 11.6-14.6 [facility] Erythrocyte distribution wid th standard deviationOrdered By: Gabby Sutherland on 07-27-2024 Erythrocyte distribution width (RBC) [Ratio] 46.2 fl High 35.1-43.9 [facility] Estimated glomerular filtrat ion rate (GFR) AmericanOrdered By: Gabby Sutherland on 07-27-2024 Estimated glomerular filtration rate (GFR) 16 mL/min Low >60 [facility] Estimation of creatinine magdiel aranceOrdered By: Gabby Sutherland on 07-27-2024 Estimation of creatinine clearance 13.10 ml/min [facility] Glomerular filtration rate ( GFR) estimationOrdered By: Gabby Sutherland on 07-27-2024 GFR/1.73 sq M.predicted among non-blacks MDRD (S/P/Bld) [Vol rate/Area] 14 mL/min/{1.73_m2} Low >60 [facility] Glomerular filtration rate (GFR) estimation 14 mL/min Low >60 [facility] Glucose measurementOrdered B y: Gabby Sutherland on 07-27-2024 Glucose [Mass/Vol] 84 mg/dL 74-106 [facility] Glucose measurement 84 mg/dL 74-106 [facility] Hematocrit Auto (Bld) [Volum e fraction]Ordered By: Gabby Sutherland on 07-27-2024 Hematocrit (Bld) [Volume fraction] 28.6 % Low 37-47 [facility] [facility] Automated blood hematocrit (percentage) 28.6 % Low 37-47 [facility] Hemoglobin measurementOrdere d By: Gabby Sutherland on 07-27-2024 Hemoglobin (Bld) [Mass/Vol] 8.9 g/dL Low 12.0-15.0 [facility] Hemoglobin measurement 8.9 g/dL Low 12.0-15.[address] [facility] Immature granulocytes/100 WB C Auto (Bld)Ordered By: Gabby Sutherland on 07-27-2024 Immature granulocytes/100 WBC (Bld) 1.300 % High 0.0-0.9 [facility] Automated immature granulocyte percentage 1.300 % High 0.0-0.9 [facility] Lymphocytes Auto (Unsp spec) [#/Vol]Ordered By: Gabby Sutherland on 07-27-2024 Absolute lymphocyte count 1.41 X10^3/uL 0.83-4.51 [facility] Lymphocytes/100 WBC Auto (Un sp spec)Ordered By: Gabby Sutherland on 07-27-2024 Automated lymphocyte count as percentage of total leukocytes 14.6 % Low 19-41 [facility] MCV (RBC) [Entitic vol]Order ed By: Gabby Sutherland on 07-27-2024 MCV (mean corpuscular volume) determination 96.6 fL 81-99 [facility] MCV (mean corpuscular volume ) determinationOrdered By: Gabby Sutherland on 07-27-2024 MCV (RBC) [Entitic vol] 96.6 fL 81-99 [facility] Mean corpuscular hemoglobin (MCH) determinationOrdered By: Gabby Sutherland on 07-27-2024 MCH (RBC) [Entitic mass] 30.1 pg 27.0-32.0 [facility] Mean corpuscular hemoglobin (MCH) determination 30.1 pg 27.0-32.0 [facility] Mean corpuscular hemoglobin concentration (MCHC) determinationOrdered By: Gabby Sutherland on 07-27-2024 Mean corpuscular hemoglobin concentration (MCHC) determination 31.1 g/dL Low 32-36 [facility] Mean platelet volume determi nationOrdered By: Gabby Sutherland on 07-27-2024 Mean platelet volume determination 10.5 fl 6.2-12.0 [facility] Monocyte percentageOrdered B y: Gabby Sutherland on 07-27-2024 Monocytes/100 WBC (Bld) 6.7 % 0-10 [facility] Monocyte percentage 6.7 % 0-10 [facility] Neutrophil percentageOrdered By: Gabby Sutherland on 07-27-2024 Neutrophils/100 WBC (Bld) 71.7 % High 47-70 [facility] Neutrophil percentage 71.7 % High 47-70 [facility] Nucleated red blood cell per centageOrdered By: Gabby Sutherland on 07-27-2024 Nucleated red blood cell percentage 0 % 0-5 [facility] Platelet countOrdered By: Renetta Sutherland on 07-27-2024 Platelets (Bld) [#/Vol] 209 10*3/uL 150-450 [facility] Platelet count 209 K/mm3 150-450 [facility] Potassium measurementOrdered By: Gabby Sutherland on 07-27-2024 Potassium [Moles/Vol] 3.8 mmol/L 3.5-5.1 [facility] Potassium measurement 3.8 mmol/L 3.5-5.1 [facility] RBC Auto (Bld) [#/Vol]Ordere d By: Gabby Sutherland on 07-27-2024 RBC (Bld) [#/Vol] 2.96 10*6/uL Low 4.2-5.4 [facility] Automated blood erythrocyte count 2.96 M/mm3 Low 4.2-5.4 [facility] Serum anion gap measurementO rdered By: Gabby Sutherland on 07-27-2024 Serum anion gap measurement 8 5-15 [facility] Serum or plasma calcium rena urement (mass/volume)Ordered By: Gabby Sutherland on 07-27-2024 Calcium [Mass/Vol] 9.4 mg/dL 8.5-10.1 [facility] Serum or plasma creatinine m easurement (mass/volume)Ordered By: Gabby Sutherland on 07-27-2024 Creatinine [Mass/Vol] 3.55 mg/dL High 0.55-1.02 [facility] Serum or plasma urea nitroge n measurement (mass/volume)Ordered By: Gabby Sutherland on 07-27-2024 Urea nitrogen [Mass/Vol] 46 mg/dL High 18 [facility] Sodium levelOrdered By: Gabby Sutherland on 07-27-2024 Sodium [Moles/Vol] 139 mmol/L 136-145 [facility] Sodium level 139 mmol/L 136-145 [facility] Urea nitrogen [Mass/Vol]Orde red By: Gabby Sutherland on 07-27-2024 Serum or plasma urea nitrogen measurement (mass/volume) 46 mg/dL High - [facility] White blood cell (WBC) count Ordered By: Gabby Sutherland on 07-27-2024 WBC (Bld) [#/Vol] 9.7 10*3/uL 4.4-11.0 [facility] White blood cell (WBC) count 9.7 K/mm3 4.4-11.0 [facility] 12 Lead EKGon 07-26-2024 12 Lead EKG Normal [facility] Basic Metabolic Profile (BMP )on 07-26-2024 BUN/CRE 13.0 RATIO Normal 10-20 [facility] Comment on above: Performed By: #### L 100.0100, L500.2500 ####[facility] [address] [place], [address] CA,Total 9.0 mg/dL Normal 8.5-10.1 [facility] Comment on above: Performed By: #### L 100.0100, L500.2500 ####[facility] [address] [place], [address] Chloride [Moles/Vol] 105 mmol/L Normal 98-107 [facility] Comment on above: Performed By: #### L 100.0100, L500.2500 ####[facility] [address] [place], [address] CO2 [Moles/Vol] 25.0 mmol/L Normal 21.0-32.0 [facility] Comment on above: Performed By: #### L 100.0100, L500.2500 ####[facility] [address] [place], [address] Creatinine [Mass/Vol] 3.31 mg/dL High 0.55-1.02 [facility] Comment on above: Result Comment: The validity of the calculated GFR GFRAA in patients over70 years has not been determined. Clinical correlation isessential. Performed By: #### L 100.0100, L500.2500 ####[facility] [address] [place], [address] ECRCL 14.05 ml/min Normal [facility] Comment on above: Performed By: #### L 100.0100, L500.2500 ####[facility] [address] [place], [address] EST GFR - AA 18 mL/min Low >60 [facility] Comment on above: Result Comment: Afri can Micronesian GFR Calc Performed By: #### L 100.0100, L500.2500 ####[facility] [address] [place], [address] GAP 7 Normal 5-15 [facility] Comment on above: Performed By: #### L 100.0100, L500.2500 ####[facility] [address] [place], [address] GFR/1.73 sq M.predicted among non-blacks MDRD (S/P/Bld) [Vol rate/Area] 15 mL/min/{1.73_m2} Low >60 [facility] Comment on above: Result Comment: Non- GFR Calc Performed By: #### L 100.0100, L500.2500 ####[facility] [address] [place], [address] Glucose [Mass/Vol] 87 mg/dL Normal 74-106 [facility] Comment on above: Performed By: #### L 100.0100, L500.2500 ####[facility] [address] [place], [address] Potassium [Moles/Vol] 4.2 mmol/L Normal 3.5-5.1 [facility] Comment on above: Result Comment: Mode rate Hemolysis, Result may be falsely increased. Performed By: #### L 100.0100, L500.2500 ####[facility] [address] [place], [address] Sodium [Moles/Vol] 137 mmol/L Normal 136-145 [facility] Comment on above: Performed By: #### L 100.0100, L500.2500 ####[facility] [address] [place], [address] Urea nitrogen [Mass/Vol] 43 mg/dL High 7-18 [facility] Comment on above: Performed By: #### L 100.0100, L500.2500 ####[facility] [address] [place], [address] CBC W/Diff, Automatedon 07-05 Absolute Lymph 1.50 X10 3/uL Normal 0.83-4.51 [facility] Comment on above: Order Comment: ROCKY Heart. PREVIOUS SPECIMEN REJECTED DUE TOCLOTTED. 07/26/24 0637 Mario Sousa. Performed By: #### L 100.0100 ####[facility] [address] [place], [address] Absolute Neut 8.4 X10 3/uL High 2.0-7.7 [facility] Comment on above: Order Comment: REDRA W. PREVIOUS SPECIMEN REJECTED DUE TOCLOTTED. 07/26/24636 Mario R Sousa. Performed By: #### L 100.0100 ####[facility] [address] [place], [address] Basophils/100 WBC (Bld) 0.3 % Normal 0-1 [facility] Comment on above: Order Comment: REDRA W. PREVIOUS SPECIMEN REJECTED DUE TOCLOTTED. 07/26/24 Mario R Sousa. Performed By: #### L 100.0100 ####[facility] [address] [place], [address] Eosinophils/100 WBC (Bld) 3.4 % Normal 0-5 [facility] Comment on above: Order Comment: REDRA W. PREVIOUS SPECIMEN REJECTED DUE TOCLOTTED. 07/26/24 Mario R Sousa. Performed By: #### L 100.0100 ####[facility] [address] [place], [address] Erythrocyte distribution width (RBC) [Ratio] 13.3 % Normal 11.6-14.6 [facility] Comment on above: Order Comment: REDRA W. PREVIOUS SPECIMEN REJECTED DUE TOCLOTTED. 07/26/24 Mario R Sousa. Performed By: #### L 100.0100 ####[facility] [address] [place], [address] Hematocrit (Bld) [Volume fraction] 25.8 % Low 37-47 [facility] Comment on above: Order Comment: REDRA W. PREVIOUS SPECIMEN REJECTED DUE TOCLOTTED. 07/26/24636 Mario R Sousa. Performed By: #### L 100.0100 ####[facility] [address] [place], [address] Hemoglobin (Bld) [Mass/Vol] 8.2 g/dL Low 12.0-15.0 [facility] Comment on above: Order Comment: REDRA W. PREVIOUS SPECIMEN REJECTED DUE TOCLOTTED. 07/26/24636 Mario R Sousa. Performed By: #### L 100.0100 ####[facility] [address] [place], [address] IG% 0.900 Normal 0.0-0.9 [facility] Comment on above: Order Comment: REDRA W. PREVIOUS SPECIMEN REJECTED DUE TOCLOTTED. 07/26/24636 Mario R Sousa. Result Comment: IG% - Immature Granulocytes (promyelocytes, myelocytes andmetamyelocytes) > 1% indicates that a LEFT SHIFT is Present. Performed By: #### L 100.0100 ####[facility] [address] [place], [address] Lymphocytes/100 WBC (Bld) 13.4 % Low 19-41 [facility] Comment on above: Order Comment: REDRA W. PREVIOUS SPECIMEN REJECTED DUE TOCLOTTED. 07/26/24636 Mario R Sousa. Performed By: #### L 100.0100 ####[facility] [address] [place], [address] MCH (RBC) [Entitic mass] 30.6 pg Normal 27.0-32.0 [facility] Comment on above: Order Comment: REDRA W. PREVIOUS SPECIMEN REJECTED DUE TOCLOTTED. 07/26/24636 Mario R Sousa. Performed By: #### L 100.0100 ####[facility] [address] [place], [address] MCHC (RBC) [Mass/Vol] 31.8 g/dL Low 32-36 [facility] Comment on above: Order Comment: REDRA W. PREVIOUS SPECIMEN REJECTED DUE TOCLOTTED. 07/26/24636 Mario R Sousa. Performed By: #### L 100.0100 ####[facility] [address] [place], [address] MCV (RBC) [Entitic vol] 96.3 fL Normal 81-99 [facility] Comment on above: Order Comment: REDRA W. PREVIOUS SPECIMEN REJECTED DUE TOCLOTTED. 07/26/24636 Mario R Sousa. Performed By: #### L 100.0100 ####[facility] [address] [place], [address] Monocytes/100 WBC (Bld) 7.2 % Normal 0-10 [facility] Comment on above: Order Comment: REDRA W. PREVIOUS SPECIMEN REJECTED DUE TOCLOTTED. 07/26/24636 Mario R Sousa. Performed By: #### L 100.0100 ####[facility] [address] [place], [address] Neutrophils/100 WBC (Bld) 74.8 % High 47-70 [facility] Comment on above: Order Comment: REDRA W. PREVIOUS SPECIMEN REJECTED DUE TOCLOTTED. 07/26/24 Mario R Sousa. Performed By: #### L 100.0100 ####[facility] [address] [place], [address] Nucleated RBC (Bld) [#/Vol] 0 10*3/uL Normal 0-5 [facility] Comment on above: Order Comment: REDRA W. PREVIOUS SPECIMEN REJECTED DUE TOCLOTTED. 07/26/24636 Mario R Sousa. Performed By: #### L 100.0100 ####[facility] [address] [place], [address] Platelet mean volume (Bld) [Entitic vol] 9.6 fL Normal 6.2-12.0 [facility] Comment on above: Order Comment: REDRA W. PREVIOUS SPECIMEN REJECTED DUE TOCLOTTED. 07/26/24636 Mario R Sousa. Performed By: #### L 100.0100 ####[facility] [address] [place], [address] Platelets (Bld) [#/Vol] 154 10*3/uL Normal 150-450 [facility] Comment on above: Order Comment: REDRA W. PREVIOUS SPECIMEN REJECTED DUE TOCLOTTED. 07/26/24636 Mario R Sousa. Performed By: #### L 100.0100 ####[facility] [address] [place], [address] RBC (Bld) [#/Vol] 2.68 10*6/uL Low 4.2-5.4 [facility] Comment on above: Order Comment: REDRA W. PREVIOUS SPECIMEN REJECTED DUE TOCLOTTED. 07/26/24636 Mario R Sousa. Performed By: #### L 100.0100 ####[facility] [address] [place], [address] RDW SD 46.6 fl High 35.1-43.9 [facility] Comment on above: Order Comment: REDRA W. PREVIOUS SPECIMEN REJECTED DUE TOCLOTTED. 07/26/24636 Mario R Sousa. Performed By: #### L 100.0100 ####[facility] [address] [place], [address] WBC (Bld) [#/Vol] 11.2 10*3/uL High 4.4-11.0 [facility] Comment on above: Order Comment: REDRA W. PREVIOUS SPECIMEN REJECTED DUE TOCLOTTED. 07/26/24636 Mario R Sousa. Performed By: #### L 100.0100 ####[facility] [address] [place], [address] Absolute Neut Normal 2.0-7.7 [facility] Comment on above: Result Comment: This specimen has been REJECTED due to Laboratory criteria:Clotted.TPARSONS has been notified of need of recollection.07/26/24636 Mario R Sousa Performed By: #### L 100.0100, L500.2500 ####[facility] [address] [place], [address] HCT Normal 37-47 [facility] Comment on above: Result Comment: This specimen has been REJECTED due to Laboratory criteria:Clotted.TPARSONS has been notified of need of recollection.07/26/24636 Mario R Sousa Performed By: #### L 100.0100, L500.2500 ####[facility] [address] [place], [address] HGB Normal 12.0-15.0 [facility] Comment on above: Result Comment: This specimen has been REJECTED due to Laboratory criteria:Clotted.TPARSONS has been notified of need of recollection.07/26/24636 Mario R Sousa Performed By: #### L 100.0100, L500.2500 ####[facility] [address] [facility] [address] MCH Normal 27.0-32.0 [facility] Comment on above: Result Comment: This specimen has been REJECTED due to Laboratory criteria:Clotted.TPARSONS has been notified of need of recollection.07/26/24636 Mario R Sousa Performed By: #### L 100.0100, L500.2500 ####[facility] [address] [facility] [address] MCHC Normal 32-36 [facility] Comment on above: Result Comment: This specimen has been REJECTED due to Laboratory criteria:Clotted.TPARSONS has been notified of need of recollection.07/26/24636 Mario R Sousa Performed By: #### L 100.0100, L500.2500 ####[facility] [address] [facility] [address] MCV Normal 81-99 [facility] Comment on above: Result Comment: This specimen has been REJECTED due to Laboratory criteria:Clotted.TPARSONS has been notified of need of recollection.07/26/24636 Mario R Sousa Performed By: #### L 100.0100, L500.2500 ####[facility] [address] [facility] [address] NEUT% Normal 47-70 [facility] Comment on above: Result Comment: This specimen has been REJECTED due to Laboratory criteria:Clotted.TPARSONS has been notified of need of recollection.07/26/24636 Mario R Sousa Performed By: #### L 100.0100, L500.2500 ####[facility] [address] [place], [address] PLT Normal 150-450 [facility] Comment on above: Result Comment: This specimen has been REJECTED due to Laboratory criteria:Clotted.TPARSONS has been notified of need of recollection.07/26/24636 Mario R Sousa Performed By: #### L 100.0100, L500.2500 ####[facility] [address] [facility] [address] RBC Normal 4.2-5.4 [facility] Comment on above: Result Comment: This specimen has been REJECTED due to Laboratory criteria:Clotted.TPARSONS has been notified of need of recollection.07/26/24636 Mario R Sousa Performed By: #### L 100.0100, L500.2500 ####[facility] [address] [facility] [address] RDW CV Normal 11.6-14.6 [facility] Comment on above: Result Comment: This specimen has been REJECTED due to Laboratory criteria:Clotted.TPARSONS has been notified of need of recollection.07/26/24636 Mario R Sousa Performed By: #### L 100.0100, L500.2500 ####[facility] [address] [place], [address] RDW SD Normal 35.1-43.9 [facility] Comment on above: Result Comment: This specimen has been REJECTED due to Laboratory criteria:Clotted.TPARSONS has been notified of need of recollection.07/26/24636 Mario R Sousa Performed By: #### L 100.0100, L500.2500 ####[facility] [address] [place], [address] WBC Normal 4.4-11.0 [facility] Comment on above: Result Comment: This specimen has been REJECTED due to Laboratory criteria:Clotted.TPARSONS has been notified of need of recollection.07/26/24 0637 Mario Mcgee Sousa Performed By: #### L 100.0100, L500.2500 ####[facility] [address] [place], [address] Respiratory Cultureon 2024 RESPC List Antibiotics [place] 48 Hours? Zosyn, Zithromax, Vanc List Antibiotics to be Started? Rocephin DECREASED NORMAL ROSANNE Presumptive C albicans Amount Growth Rare Normal [facility] Comment on above: Performed By: #### M 100.2000, M100.2400 ####[facility] [address] [place], [address] Basic Metabolic Profile (BMP )on 07-25-2024 BUN/CRE 18.5 RATIO Normal 10-20 [facility] Comment on above: Performed By: #### L 500.2500, L100.0100 ####[facility] [address] [place], [address] CA,Total 8.6 mg/dL Normal 8.5-10.1 [facility] Comment on above: Performed By: #### L 500.2500, L100.0100 ####[facility] [address] [place], [address] Chloride [Moles/Vol] 105 mmol/L Normal 98-107 [facility] Comment on above: Performed By: #### L 500.2500, L100.0100 ####[facility] [address] [place], [address] CO2 [Moles/Vol] 29.0 mmol/L Normal 21.0-32.0 [facility] Comment on above: Performed By: #### L 500.2500, L100.0100 ####[facility] [address] [place], [address] Creatinine [Mass/Vol] 4.01 mg/dL High 0.55-1.02 [facility] Comment on above: Result Comment: The validity of the calculated GFR GFRAA in patients over70 years has not been determined. Clinical correlation isessential. Performed By: #### L 500.2500, L100.0100 ####[facility] [address] [place], [address] ECRCL 11.59 ml/min Normal [facility] Comment on above: Performed By: #### L 500.2500, L100.0100 ####[facility] [address] [place], [address] EST GFR - AA 14 mL/min Low >60 [facility] Comment on above: Result Comment: Afri can Micronesian GFR Calc Performed By: #### L 500.2500, L100.0100 ####[facility] [address] [place], [address] GAP 7 Normal 5-15 [facility] Comment on above: Performed By: #### L 500.2500, L100.0100 ####[facility] [address] [place], [address] GFR/1.73 sq M.predicted among non-blacks MDRD (S/P/Bld) [Vol rate/Area] 12 mL/min/{1.73_m2} Low >60 [facility] Comment on above: Result Comment: Non- GFR Calc Performed By: #### L 500.2500, L100.0100 ####[facility] [address] [place], [address] Glucose [Mass/Vol] 93 mg/dL Normal 74-106 [facility] Comment on above: Performed By: #### L 500.2500, L100.0100 ####[facility] [address] [place], [address] Potassium [Moles/Vol] 4.4 mmol/L Normal 3.5-5.1 [facility] Comment on above: Performed By: #### L 500.2500, L100.0100 ####[facility] [address] [place], [address] Sodium [Moles/Vol] 140 mmol/L Normal 136-145 [facility] Comment on above: Performed By: #### L 500.2500, L100.0100 ####[facility] [address] [place], [address] Urea nitrogen [Mass/Vol] 74 mg/dL High 7-18 [facility] Comment on above: Performed By: #### L 500.2500, L100.0100 ####[facility] [address] [place], [address] CBC W/Diff, Automatedon -08 05-2024 Absolute Lymph 1.77 X10 3/uL Normal 0.83-4.51 [facility] Comment on above: Performed By: #### L 500.2500, L100.0100 ####[facility] [address] [place], [address] Absolute Neut 16.8 X10 3/uL High 2.0-7.7 [facility] Comment on above: Performed By: #### L 500.2500, L100.0100 ####[facility] [address] [place], [address] Basophils/100 WBC (Bld) 0.2 % Normal 0-1 [facility] Comment on above: Performed By: #### L 500.2500, L100.0100 ####[facility] [address] [place], [address] Eosinophils/100 WBC (Bld) 0.6 % Normal 0-5 [facility] Comment on above: Performed By: #### L 500.2500, L100.0100 ####[facility] [address] [place], [address] Erythrocyte distribution width (RBC) [Ratio] 13.2 % Normal 11.6-14.6 [facility] [facility] Comment on above: Performed By: #### L 500.2500, L100.0100 ####[facility] [address] [place], [address] Hematocrit (Bld) [Volume fraction] 25.6 % Low 37-47 [facility] Comment on above: Performed By: #### L 500.2500, L100.0100 ####[facility] [address] [place], [address] Hemoglobin (Bld) [Mass/Vol] 8.3 g/dL Low 12.0-15.0 [facility] Comment on above: Performed By: #### L 500.2500, L100.0100 ####[facility] [address] [place], [address] IG% 0.800 Normal 0.0-0.9 [facility] Comment on above: Result Comment: IG% - Immature Granulocytes (promyelocytes, myelocytes andmetamyelocytes) > 1% indicates that a LEFT SHIFT is Present. Performed By: #### L 500.2500, L100.0100 ####[facility] [address] [place], [address] Lymphocytes/100 WBC (Bld) 8.9 % Low 19-41 [facility] Comment on above: Performed By: #### L 500.2500, L100.0100 ####[facility] [address] [place], [address] MCH (RBC) [Entitic mass] 31.3 pg Normal 27.0-32.0 [facility] Comment on above: Performed By: #### L 500.2500, L100.0100 ####[facility] [address] [place], [address] MCHC (RBC) [Mass/Vol] 32.4 g/dL Normal 32-36 [facility] Comment on above: Performed By: #### L 500.2500, L100.0100 ####[facility] [address] [place], [address] MCV (RBC) [Entitic vol] 96.6 fL Normal 81-99 [facility] Comment on above: Performed By: #### L 500.2500, L100.0100 ####[facility] [address] [place], [address] Monocytes/100 WBC (Bld) 5.4 % Normal 0-10 [facility] Comment on above: Performed By: #### L 500.2500, L100.0100 ####[facility] [address] [place], [address] Neutrophils/100 WBC (Bld) 84.1 % High 47-70 [facility] Comment on above: Performed By: #### L 500.2500, L100.0100 ####[facility] [address] [place], [address] Nucleated RBC (Bld) [#/Vol] 0 10*3/uL Normal 0-5 [facility] Comment on above: Performed By: #### L 500.2500, L100.0100 ####[facility] [address] [place], [address] Platelet mean volume (Bld) [Entitic vol] 10.3 fL Normal 6.2-12.0 [facility] Comment on above: Performed By: #### L 500.2500, L100.0100 ####[facility] [address] [place], [address] Platelets (Bld) [#/Vol] 169 10*3/uL Normal 150-450 [facility] Comment on above: Performed By: #### L 500.2500, L100.0100 ####[facility] [address] [place], [address] RBC (Bld) [#/Vol] 2.65 10*6/uL Low 4.2-5.4 [facility] Comment on above: Performed By: #### L 500.2500, L100.0100 ####[facility] [address] [place], [address] RDW SD 47.2 fl High 35.1-43.9 [facility] Comment on above: Performed By: #### L 500.2500, L100.0100 ####[facility] [address] [place], [address] WBC (Bld) [#/Vol] 20.0 10*3/uL High 4.4-11.0 [facility] Comment on above: Performed By: #### L 500.2500, L100.0100 ####[facility] [address] [place], [address] Ferritinon 07-25-2024 Ferritin [Mass/Vol] 2756 ng/mL High 8-252 [facility] Comment on above: Performed By: #### L 503.6550, L503.6030 ####[facility] [address] [place], [address] Ferritin measurementOrdered By: Gabby Sutherland on 07-25-2024 Ferritin measurement 2756 ng/mL High 8-252 [facility] Gram Stainon 07-25-2024 GS List Antibiotics Las t 48 Hours? Zosyn, Zithromax, Vanc List Antibiotics to be Started? Rocephin Acceptable Specimen? Yes (<25 Epithelial cells per/lpf) Gram Stain 2+ White Blood Cells No Epithelial cells No organisms seen Normal [facility] Comment on above: Performed By: #### M 100.2000, M100.2400 ####[facility] [address] [place], [address] Iron (Unsp spec) [Mass/Mass] Ordered By: Gabby Sutherland on 07-25-2024 Iron measurement (mass/mass) 132 ug/dL 50-170 [facility] Iron measurement (mass/mass) Ordered By: Gabby Sutherland on 07-25-2024 Iron (Unsp spec) [Mass/Mass] 132 ug/dL 50-170 [facility] Iron saturation [Mass fracti on]Ordered By: Gabby Sutherland on 07-25-2024 Serum or plasma iron saturation measurement (mass fraction) 92.3 % High 15.0-55.0 [facility] Iron+Iron Binding Capacityon 07-25-2024 Iron [Mass/Vol] 132 ug/dL Normal 50-170 [facility] Comment on above: Performed By: #### L 503.6550, L503.6030 ####[facility] [address] [place], [address] IRON SATURATION 92.3 High 15.0-55.0 [facility] Comment on above: Performed By: #### L 503.6550, L503.6030 ####[facility] [address] [place], [address] TIBC 143 ug/dL Low 250-450 [facility] Comment on above: Performed By: #### L 503.6550, L503.6030 ####[facility] [address] [place], [address] Serum or plasma iron saturat ion measurement (mass fraction)Ordered By: Gabby Sutherland on 07-25-2024 Iron saturation [Mass fraction] 92.3 % High 15.0-55.0 [facility] Stool Occult Blood iFOBon STOB Negative Normal [facility] Comment on above: Performed By: #### M 100.7900 ####[facility] [address] [place], [address] Stool gastrointestinal hemog lobin detection by immunologic methodOrdered By: Gabby Sutherland on 07-25-2024 Lower GI hemoglobin IA Ql (Stl) [facility] TIBCOrdered By: Gabby lynne n 07-25-2024 TIBC 143 ug/dL Low 250-450 [facility] Basic Metabolic Profile (BMP )on 07-24-2024 BUN/CRE 14.9 RATIO Normal 10-20 [facility] Comment on above: Performed By: #### L 100.0100, L500.2500 ####[facility] [address] [place], [address] CA,Total 9.3 mg/dL Normal 8.5-10.1 [facility] Comment on above: Performed By: #### L 100.0100, L500.2500 ####[facility] [address] [place], [address] Chloride [Moles/Vol] 104 mmol/L Normal 98-107 [facility] Comment on above: Performed By: #### L 100.0100, L500.2500 ####[facility] [address] [place], [address] CO2 [Moles/Vol] 28.0 mmol/L Normal 21.0-32.0 [facility] Comment on above: Performed By: #### L 100.0100, L500.2500 ####[facility] [address] [place], [address] Creatinine [Mass/Vol] 3.03 mg/dL High 0.55-1.02 [facility] Comment on above: Result Comment: The validity of the calculated GFR GFRAA in patients over70 years has not been determined. Clinical correlation isessential. Performed By: #### L 100.0100, L500.2500 ####[facility] [address] [place], [address] ECRCL 15.34 ml/min Normal [facility] Comment on above: Performed By: #### L 100.0100, L500.2500 ####[facility] [address] [place], [address] EST GFR - AA 20 mL/min Low >60 [facility] Comment on above: Result Comment: Afri can Micronesian GFR Calc Performed By: #### L 100.0100, L500.2500 ####[facility] [address] [place], [address] GAP 7 Normal 5-15 [facility] Comment on above: Performed By: #### L 100.0100, L500.2500 ####[facility] [address] [place], [address] GFR/1.73 sq M.predicted among non-blacks MDRD (S/P/Bld) [Vol rate/Area] 16 mL/min/{1.73_m2} Low >60 [facility] Comment on above: Result Comment: Non- GFR Calc Performed By: #### L 100.0100, L500.2500 ####[facility] [address] [place], [address] Glucose [Mass/Vol] 124 mg/dL High 74-106 [facility] Comment on above: Result Comment: Fast ing Glucose result from 100 to 125 mg/dLsuggests IMPAIRED HOMEOSTASIS per A.D.A. criteria. Performed By: #### L 100.0100, L500.2500 ####[facility] [address] [place], [address] Potassium [Moles/Vol] 5.5 mmol/L High 3.5-5.1 [facility] Comment on above: Performed By: #### L 100.0100, L500.2500 ####[facility] [address] [place], [address] Sodium [Moles/Vol] 139 mmol/L Normal 136-145 [facility] Comment on above: Performed By: #### L 100.0100, L500.2500 ####[facility] [address] [place], [address] Urea nitrogen [Mass/Vol] 45 mg/dL High 7-18 [facility] Comment on above: Performed By: #### L 100.0100, L500.2500 ####[facility] [address] [place], [address] Blood manual differential co mment interpretation (narrative result)Ordered By: Gabby Sutherland on 07-24-2024 Manual differential comment Darnell (Bld) [Interp] COMMENT [facility] CBC W/Diff, Automatedon 07-05 PATH REV Reviewed Normal [facility] Comment on above: Result Comment: Neut rophilic leukocytosis.Normocytic anemia.Clinical correlation necessary.Patrice Quinones M.D. 07/24/24 AMENDED REPORT 07/24/24 1321 PATH REV previously reported as: November mily Performed By: #### L 100.0100, L500.2500 ####[facility] [address] [place], [address] Consultation - Infectious Dx on 07-24-2024 Consultation - Infectious Dx Normal [facility] Consultation - Nephrologyon 07-24-2024 Consultation - Nephrology Normal [facility] Gram stainOrdered By: Solo Perry on 07-24-2024 Microscopic observation Gram stain Nom (Unsp spec) [facility] M R Staph Aureus DNA by PCRo n 07-24-2024 MRSA DNA ASSAY Negative Normal Negative [facility] Comment on above: Performed By: #### L 8200.1000 ####[facility] [address] [place], [address] Manual differential comment Darnell (Bld) [Interp]Ordered By: Gabby Sutherland on 07-24-2024 Blood manual differential comment interpretation (narrative result) COMMENT [facility] Microbial respiratory cultur eOrdered By: Solo Perry on 07-24-2024 Microorganism identified Cx Nom (Unsp spec) Presumptive C albicans Abnormal [facility] Microorganism identified Cx Nom (Unsp spec)Ordered By: Solo Perry on 07-24-2024 Microbial respiratory culture Presumptive C albicans Abnormal [facility] Pathologist review Darnell (Unsp spec) [Interp]Ordered By: Gabby Sutherland on 07-24-2024 Review by pathologist Reviewed [facility] Review by pathologistOrdered By: Gabby Sutherland on 07-24-2024 Pathologist review Darnell (Unsp spec) [Interp] Reviewed [facility] 12 Lead EKGon 07-23-2024 12 Lead EKG Normal [facility] 12 Lead EKG Normal [facility] BNP (brain natriuretic pepti de measurement)Ordered By: Radu Sullivan on 07-23-2024 Natriuretic peptide B (Bld) [Mass/Vol] 90.6 pg/mL 0-100 [facility] BNP (brain natriuretic peptide measurement) 90.6 pg/mL 0-100 [facility] BNP,B-Type NATRIURETIC PEPTI Arian 07-23-2024 Natriuretic peptide B (Bld) [Mass/Vol] 90.6 pg/mL Normal 0-100 [facility] Comment on above: Performed By: #### L 503.6620 ####[facility] [address] [place], [address] Basic Metabolic Profile (BMP )on 07-23-2024 BUN/CRE 15.5 RATIO Normal 10-20 [facility] Comment on above: Order Comment: 'TROP ' Serial specimen #1, #2 or #3: 1 Performed By: #### L 100.0100, L500.2500, L501.4020 ####[facility] [address] [place], [address] CA,Total 9.4 mg/dL Normal 8.5-10.1 [facility] Comment on above: Order Comment: 'TROP ' Serial specimen #1, #2 or #3: 1 Performed By: #### L 100.0100, L500.2500, L501.4020 ####[facility] [address] [place], [address] Chloride [Moles/Vol] 106 mmol/L Normal 98-107 [facility] Comment on above: Order Comment: 'TROP ' Serial specimen #1, #2 or #3: 1 Performed By: #### L 100.0100, L500.2500, L501.4020 ####[facility] [address] [place], [address] CO2 [Moles/Vol] 27.0 mmol/L Normal 21.0-32.0 [facility] Comment on above: Order Comment: 'TROP ' Serial specimen #1, #2 or #3: 1 Performed By: #### L 100.0100, L500.2500, L501.4020 ####[facility] [address] [place], [address] Creatinine [Mass/Vol] 3.35 mg/dL High 0.55-1.02 [facility] Comment on above: Order Comment: 'TROP ' Serial specimen #1, #2 or #3: 1 Result Comment: The validity of the calculated GFR GFRAA in patients over70 years has not been determined. Clinical correlation isessential. Performed By: #### L 100.0100, L500.2500, L501.4020 ####[facility] [address] [place], [address] ECRCL 15.57 ml/min Normal [facility] Comment on above: Order Comment: 'TROP ' Serial specimen #1, #2 or #3: 1 Performed By: #### L 100.0100, L500.2500, L501.4020 ####[facility] [address] [place], [address] EST GFR - AA 18 mL/min Low >60 [facility] Comment on above: Order Comment: 'TROP ' Serial specimen #1, #2 or #3: 1 Result Comment: Afri can Micronesian GFR Calc Performed By: #### L 100.0100, L500.2500, L501.4020 ####[facility] [address] [place], [address] GAP 7 Normal 5-15 [facility] Comment on above: Order Comment: 'TROP ' Serial specimen #1, #2 or #3: 1 Performed By: #### L 100.0100, L500.2500, L501.4020 ####[facility] [address] [place], [address] GFR/1.73 sq M.predicted among non-blacks MDRD (S/P/Bld) [Vol rate/Area] 15 mL/min/{1.73_m2} Low >60 [facility] Comment on above: Order Comment: 'TROP ' Serial specimen #1, #2 or #3: 1 Result Comment: Non- GFR Calc Performed By: #### L 100.0100, L500.2500, L501.4020 ####[facility] [address] [place], [address] Glucose [Mass/Vol] 105 mg/dL Normal 74-106 [facility] Comment on above: Order Comment: 'TROP ' Serial specimen #1, #2 or #3: 1 Result Comment: Fast ing Glucose result from 100 to 125 mg/dLsuggests IMPAIRED HOMEOSTASIS per A.D.A. criteria. Performed By: #### L 100.0100, L500.2500, L501.4020 ####[facility] [address] [place], [address] Potassium [Moles/Vol] 5.0 mmol/L Normal 3.5-5.1 [facility] Comment on above: Order Comment: 'TROP ' Serial specimen #1, #2 or #3: 1 Performed By: #### L 100.0100, L500.2500, L501.4020 ####[facility] [address] [place], [address] Sodium [Moles/Vol] 140 mmol/L Normal 136-145 [facility] Comment on above: Order Comment: 'TROP ' Serial specimen #1, #2 or #3: 1 Performed By: #### L 100.0100, L500.2500, L501.4020 ####[facility] [address] [place], [address] Urea nitrogen [Mass/Vol] 52 mg/dL High 7-18 [facility] Comment on above: Order Comment: 'TROP ' Serial specimen #1, #2 or #3: 1 Performed By: #### L 100.0100, L500.2500, L501.4020 ####[facility] [address] [place], [address] Bilirubin Test strip Ql (U)O rdered By: Radu Sullivan on 07-23-2024 Bilirubin Ql (U) Negative Negative [facility] Blood cultureOrdered By: Shaq Sullivan on 07-23-2024 Bacteria identified Cx Nom (Bld) No growth in 5 days. [facility] Blood culture No growth in 5 days. [facility] CBC W/Diff, Automatedon 07-05 SMEAR COMMENT SCANNED Normal [facility] Comment on above: Result Comment: NEUT ROPHILIA NOTED Performed By: #### L 100.0100, L500.2500, L501.4020 ####[facility] [address] [place], [address] CTA Chest W/WO Contraston CTA Chest W/WO Contrast Normal [facility] Chest 1 View (Portable)on Chest 1 View (Portable) Normal [facility] Clarity (U)Ordered By: Radu Sullivan on 07-23-2024 Urine clarity Sl. Cloudy Clear [facility] Color (U)Ordered By: Radu peralta on 07-23-2024 Urine color determination Yellow Yellow [facility] D-Dimer Quantitative (DVT/PE )on 07-23-2024 D-DIMER QUANT 1.55 FEU/ug/m Invalid Interpretation Code 0.27-0.49 [facility] Comment on above: Result Comment: D-Di lucía ELEVATED (>0.49): Additional studies and clinicalassessments are indicated to conclude diagnosis of:Deep Vein Thrombosis (DVT) or Pulmonary Embolism (PE)CRITICAL VALUE CALLED TO [facility] FARRELL (ER)07/23/24 0918 Mich Castrejon.RESULTS READ BACK BY SAME. Performed By: #### L 300.8000 ####[facility] [address] [place], [address] D-dimer measurement for deep venous thrombosisOrdered By: Radu Sullivan on 07-23-2024 D-dimer measurement for deep venous thrombosis 1.55 FEU/ug/m High 0.27-0.49 [facility] Emergency Department Summary on 07-23-2024 Emergency Department Summary Normal [facility] H AND P Exam - Hospitaliston 07-23-2024 H&P Exam - Hospitalist Normal [facility] Influenza virus A and B and SARS-CoV-2 (COVID-19) and Respiratory syncytial virus RNAOrdered By: Radu Sullivan on 07-23-2024 SARS-CoV-2 (COVID-19) RNA FOZIA+probe Ql (Unsp spec) [facility] Ketones Test strip Ql (U)Ord ered By: Radu Sullivan on 07-23-2024 Ketones Ql (U) Negative Negative [facility] L501.4020on 07-23-2024 TROPONIN-I HS 11 pg/mL Normal 3.0-54.0 [facility] Comment on above: Order Comment: 'TROP ' Serial specimen #1, #2 or #3: 1 Result Comment: Louisa chavarria Note: New Test Units and Gender Specific Reference Ranges. For more information see Policy Stat Procedure [place]erson High Sensitivity Troponin (TNIH) and attachments. Performed By: #### L 100.0100, L500.2500, L501.4020 ####[facility] [address] [place], [address] Lactic Acidon 07-23-2024 Lactate [Moles/Vol] 1.3 mmol/L Normal 0.4-1.9 [facility] Comment on above: Performed By: #### L 503.0941 ####[facility] [address] [place], [address] Lactate [Moles/Vol] 2.0 mmol/L Normal 0.4-1.9 [facility] Comment on above: Order Comment: Y Result Comment: Crit ical Result(s) Called at: 16:17:34 07/23/2024 by: Ran Decker. Results read back by same. Performed By: #### L 503.6005 ####[facility] [address] [facility], [address] Lactic acid measurementOrder ed By: Gabby Sutherland on 07-23-2024 Lactic acid measurement 1.3 mmol/L 0.4-2.0 [facility] Legionella Antigen Urineon 0 07-23-2024 LEGU Normal [facility] Comment on above: Performed By: #### M 300.4600, M300.4500 ####[facility] [address] [facility], [address] M100.678on 07-23-2024 M100.678 Pending SARS-CoV-2 (COVID 19) Negative INFLUENZA A Negative INFLUENZA B Negative RSV PCR Negative Normal [facility] Comment on above: Performed By: #### M 100.678 ####[facility] [address] [facility], [address] MRSA detection PCROrdered By : Gabby Sutherland on 07-23-2024 MRSA detection PCR Negative Negative [facility] Microscopic analysis of urin e for red blood cells (RBC)Ordered By: Radu Sullivan on 07-23-2024 Microscopic analysis of urine for red blood cells (RBC) 0-5 SEEN /hpf 5-10 [facility] Mucus LM Ql (Urine sed)Order ed By: Radu Sullivan on 07-23-2024 Mucus Ql (Urine sed) 0 SEEN /hpf [facility] Nitrite Test strip Ql (U)Ord ered By: Radu Sullivan on 07-23-2024 Nitrite Ql (U) Negative Negative [facility] Protein Test strip Ql (U)Ord ered By: Radu Sullivan on 07-23-2024 Protein Ql (U) 30 mg/dl High Negative [facility] Urine protein assay by test strip, semi-quantitative 30 mg/dl High Negative [facility] Specific gravity (U) [Rel de nsity]Ordered By: Radu Sullivan on 07-23-2024 Urine specific gravity measurement 1.010 1.002-1.030 [facility] Squamous epithelial cells de tection in urine sediment by light microscopyOrdered By: Radu Sullivan on 07-23-2024 Epithelial cells.squamous LM Ql (Urine sed) 0-5 SEEN /hpf 5-10 [facility] Strep pneumoniae Antig(UR,CS F)on 07-23-2024 STPAG Normal [facility] Comment on above: Performed By: #### M 300.4600, M300.4500 ####[facility] [address] [place], [address] Troponin IOrdered By: Radu león on 07-23-2024 Troponin I 11 pg/mL 3.0-54.0 [facility] Troponin I 11 pg/mL 3.0-54.0 [facility] Urinalysis, Completeon 07-23 EPI,SQUAMOUS 0-5 SEEN Normal 5-10 [facility] Comment on above: Order Comment: WILMAR CTOR TO SPECIFY Performed By: #### L 400.0001 ####[facility] [address] [place], [address] RBC 0-5 SEEN Normal 0-5 [facility] Comment on above: Order Comment: WILMAR CTOR TO SPECIFY Performed By: #### L 400.0001 ####[facility] [address] [place], [address] BACTERIA 0 SEEN Normal None Seen [facility] Comment on above: Order Comment: WILMAR CTOR TO SPECIFY Performed By: #### L 400.0001 ####[facility] [facility] [address] [place], [address] Mucus Ql (Urine sed) 0 SEEN Normal [facility] Comment on above: Order Comment: WILMAR CTOR TO SPECIFY Performed By: #### L 400.0001 ####[facility] [address] [place], [address] WBC 0 SEEN Normal 0-5 [facility] Comment on above: Order Comment: COLLE CTOR TO SPECIFY Performed By: #### L 400.0001 ####[facility] [address] [place], [place], [id number] Urine Legionella pneumophila antigen detectionOrdered By: Gabby Sutherland on 07-23-2024 L. pneumophila Ag Ql (U) [facility] Urine blood detectionOrdered By: Radu Sullivan on 07-23-2024 Urine blood detection 50 /ul High Negative [facility] Urine clarityOrdered By: Shaq Sullivan on 07-23-2024 Clarity (U) Sl. Cloudy Clear [facility] Urine color determinationOrd ered By: Radu Sullivan on 07-23-2024 Color (U) Yellow Yellow [facility] Urine glucose detectionOrder ed By: Radu Sullivan on 07-23-2024 Glucose Ql (U) Normal mg/dl Normal [facility] Urine glucose detection Normal mg/dl Normal [facility] Urine leukocyte esterase det ection by dipstickOrdered By: Radu Sullivan on 07-23-2024 Leukocyte esterase Test strip Ql (U) Negative Negative [facility] Urine pHOrdered By: Radu perez on 07-23-2024 pH (U) 7.0 [pH] 5.0 - 8.0 [facility] Urine sediment bacteria coun t by microscopy (number/high power field)Ordered By: Radu Sullivan on 07-23-2024 Bacteria LM.HPF (Urine sed) [#/Area] 0 /[HPF] None Seen [facility] Urine specific gravity measu rementOrdered By: Radu Sullivan on 07-23-2024 Specific gravity (U) [Rel density] 1.010 1.002-1.030 [facility] Urine total bilirubin detect ion by test stripOrdered By: Radu Sullivan on 07-23-2024 Urine total bilirubin detection by test strip Negative Negative [facility] Urine urobilinogen measureme ntOrdered By: Radu Sullivan on 07-23-2024 Urobilinogen Ql (U) Normal mg/dl Normal [facility] White blood cell countOrdere d By: Radu Sullivan on 07-23-2024 White blood cell count 0 SEEN /hpf 0-5 [facility] White blood cell count 0 SEEN /hpf [facility] pH (U)Ordered By: Radu padron on 07-23-2024 Urine pH 7.0 5.0 - 8.0 [facility] CNOVon 07-18-2024 CNOV Office Visit (INTMWS ) SNEHA CARDENAS ([id number]) 1955 F Date Time Provider Department 07/18/24 11:20 AM JULIO DRAPER INTMWS During your visit today, we recorded the following information about you: Temperature Pulse Respiration Blood pressure 98.4 degrees 88/minute 1/minute 126/74 Julio Draper MD 07/18/2024 12:50 PM Signed This note was created using [employer]. Subjective Patient presents with: Hospital F/U Sneha Cardenas is a 69 year old female seen with her spouse. She was admitted 07/08-07/11/24 for COPD exacerbation, RSV infection, pneumonia, ESRD, and CHF. She was discharged on 1 dose of levofloxacin and prednisone 40 mg daily x 5 days, completed this Tuesday. She was better, less dyspneic, with productive cough. She was fatigued from dialysis this AM. Review of Systems Constitutional: Negative for chills, diaphoresis and fever. Respiratory: Positive for cough and shortness of breath. Cardiovascular: Negative for chest pain, palpitations and leg swelling. Gastrointestinal: Negative for diarrhea, nausea and vomiting. ACTIVE PROBLEM LIST Essential Tremor Environmental Allergies Chronic Obstructive Pulmonary Disease (Hcc) Primary Hypertension Hyperlipidemia Age-Related Osteoporosis Without Current Pathological Fracture Lung Nodule Chronic Respiratory Failure With Hypoxia (Hcc) Duodenal Ulcer Paroxysmal Atrial Fibrillation (Hcc) Anemia Requiring Transfusions Dysphagia Former Smoker Nstemi (Non-St Elevated Myocardial Infarction) (Hcc) Pleural Effusion Malnutrition of Mild Degree (Hcc) Esrd (End Stage Renal Disease) (Hcc) Coronary Artery Disease Anxiety About Health Social History Tobacco Use Smoking status: Former Current packs/day: 0.00 Average packs/day: 0.5 packs/day for 42.0 years (21.0 ttl pk-yrs) Types: Cigarettes Start date: 1974 Quit date: 05/23/2016 Years since quittin.1 Smokeless tobacco: Never Tobacco comments: Resumed short period. Quit for good 05/2016. Vaping Use Vaping status: Never Used Substance Use Topics Alcohol use: No Drug use: No Current Outpatient Medications Medication Sig isosorbide mononitrate ER (IMDUR) 60 mg 24 hr tablet Take 1 tablet by mouth once daily. montelukast (SINGULAIR) 10 mg tablet Take 1 tablet by mouth daily at bedtime. sucralfate (CARAFATE) 1 gram tablet Take 1 tablet by mouth two times a day. pantoprazole DR (PROTONIX) 40 mg tablet Take 1 tablet by mouth once daily. albuterol HFA (PROAIR HFA) 90 mcg/actuation inhaler Inhale 2 Puffs as instructed every 4 hours as needed for wheezing/shortness of breath. atorvastatin (LIPITOR) 40 mg tablet Take 1 tablet by mouth daily at bedtime. For cholesterol. busPIRone (BUSPAR) 10 mg tablet Take 1 tablet by mouth two times a day. cqkmwlervw-atieomtp-ct rmoterol (BREZTRI) 160-9-4.8 mcg/actuation HFA aerosol inhaler Inhale 2 Puffs as instructed two times a day. fluticasone (FLONASE) 50 mcg/actuation nasal spray Use 2 Sprays in each nostril once daily. Rinse mouth after use. ondansetron orally disintegrating (ZOFRAN ODT) 4 mg disintegrating tablet Take 1 tablet by mouth every 8 hours as needed for nausea/vomiting. OXYGEN, HOME THERAPY, Inhale 3 L/min as instructed as directed. 3L NC continuous, up to 4L with exertion acetaminophen (TYLENOL) 325 mg tablet Take 650 mg by mouth every 6 hours as needed. nitroglycerin sublingual (NITROSTAT) 0.4 mg SL tablet Dissolve 0.4 mg under the tongue every 5 minutes as needed for chest pain. polyethylene glycol 3350 (MIRALAX) 17 gram/dose powder Take 17 g by mouth as needed for constipation. Dissolve dose in 4 - 8 ounces of liquid and take as directed. ipratropium-albuterol (DUONEB) 0.5 mg-3 mg(2.5 mg base)/3 mL nebu Inhale 3 mL as instructed every 4 hours as needed for wheezing/shortness of breath. (Patient taking differently: Inhale 3 mL as instructed every 6 hours as needed for wheezing/shortness of breath.) No current facility-administered medications for this visit. Objective BP 126/74 (BP Site: Right Arm, BP Position: Sitting, BP Cuff Size: Regular Adult) Pulse 88 Temp 36.9 ?C (98.4 ?F) (Temporal) Resp (!) 1 Physical Exam Constitutional: General: She is not in acute distress. Appearance: She is ill-appearing. HENT: Nose: No congestion or rhinorrhea. Cardiovascular: Rate and Rhythm: Normal rate and regular rhythm. Heart sounds: No murmur heard. No gallop. Pulmonary: Effort: No accessory muscle usage, prolonged expiration or respiratory distress. Breath sounds: Decreased breath sounds, wheezing and rhonchi present. No rales. Comments: On portable O2 via NC. Abdominal: Tenderness: There is no abdominal tenderness. Musculoskeletal: Right lower leg: No edema. Left lower leg: No edema. Neurological: General: No focal deficit present. Mental Status: She is a (more content not included)... Normal [facility] 07-17-2024 [facility] Telephone (INTMWS) SNEHA CARDENAS ([id number]) 1955 F Date Time Provider Department 07/17/24 JULIO DRAPER INTWS During your visit today, we recorded the following information about you: Mary Kay Woodard, RN 07/17/2024 2:47 PM Signed Geovany PT with [facility] HH called in and reports he will see the Pt twice a week for 3 weeks for functional mobility training. States he does not need a call back. Allergies As of Date: 07/17/2024 Noted Allergy Reaction KEFLEX (CEPHALEXIN) 10/04/2005 5 - Intolerance Comments: Tachycardia, palpitations. VANCOMYCIN 06/07/2024 4 - Hives Date Reviewed: 07/05/2024 Reviewed by: Anushka Alexis LPN - Fully Assessed Reason for Visit: Home Health Point of Care Results [4062] Prescriptions as of 07/17/2024 - isosorbide mononitrate ER (IMDUR) 60 mg 24 hr tablet Take 1 tablet by mouth once daily. - montelukast (SINGULAIR) 10 mg tablet Take 1 tablet by mouth daily at bedtime. - sucralfate (CARAFATE) 1 gram tablet Take 1 tablet by mouth two times a day. - pantoprazole DR (PROTONIX) 40 mg tablet Take 1 tablet by mouth once daily. - albuterol HFA (PROAIR HFA) 90 mcg/actuation inhaler Inhale 2 Puffs as instructed every 4 hours as needed for wheezing/shortness of breath. - atorvastatin (LIPITOR) 40 mg tablet Take 1 tablet by mouth daily at bedtime. For cholesterol. - busPIRone (BUSPAR) 10 mg tablet Take 1 tablet by mouth two times a day. - zaonzwwlzp-lyupzzim-gf rmoterol (BREZTRI) 160-9-4.8 mcg/actuation HFA aerosol inhaler Inhale 2 Puffs as instructed two times a day. - fluticasone (FLONASE) 50 mcg/actuation nasal spray Use 2 Sprays in each nostril once daily. Rinse mouth after use. - ondansetron orally disintegrating (ZOFRAN ODT) 4 mg disintegrating tablet Take 1 tablet by mouth every 8 hours as needed for nausea/vomiting. - OXYGEN, HOME THERAPY, Inhale 3 L/min as instructed as directed. 3L NC continuous, up to 4L with exertion - acetaminophen (TYLENOL) 325 mg tablet Take 650 mg by mouth every 6 hours as needed. - nitroglycerin sublingual (NITROSTAT) 0.4 mg SL tablet Dissolve 0.4 mg under the tongue every 5 minutes as needed for chest pain. - polyethylene glycol 3350 (MIRALAX) 17 gram/dose powder Take 17 g by mouth as needed for constipation. Dissolve dose in 4 - 8 ounces of liquid and take as directed. - ipratropium-albuterol (DUONEB) 0.5 mg-3 mg(2.5 mg base)/3 mL nebu Inhale 3 mL as instructed every 4 hours as needed for wheezing/shortness of breath. Problem List As Of Date 07/17/2024 Noted Resolved Tobacco use disorder [F17.200] 11/02/2007 02/10/2017 Essential tremor [G25.0] 11/02/2007 Other specified disorder of gallbladder [K82.8] 12/11/2007 07/20/2012 Unspecified gastritis and gastroduodenitis with*02/09/2010 07/15/2015 Blood in stool [K92.1] 02/09/2010 07/20/2012 Loss of weight [R63.4] 02/09/2010 07/20/2012 Upper GI bleed [K92.2] 02/09/2010 04/12/2024 Acute gastritis without mention of hemorrhage [*02/09/2010 07/20/2012 Essential hypertension, benign [I10] 05/17/2011 07/15/2015 Migraine headache [G43.909] 07/15/2015 Irritable bowel syndrome [K58.9] 07/15/2015 Scoliosis [M41.9] 02/10/2017 Environmental allergies [Z91.09] History of colon polyps [Z86.0100] 07/15/2015 Chronic obstructive pulmonary disease (HCC) [J4*07/25/2012 Cervical disc disorder with radiculopathy [M50.*08/15/2015 02/10/2017 DDD (degenerative disc disease), cervical [M50.*08/15/2015 02/10/2017 Primary hypertension [I10] 06/03/2016 Asthma [J45.909] 02/15/2019 Hyperlipidemia [E78.5] 02/15/2019 Age-related osteoporosis without current pathol*08/28/2021 Hypoxemia [R09.02] 05/01/2021 08/25/2023 Lung nodule [R91.1] 05/12/2021 Elevated blood pressure reading [R03.0] 05/03/2022 08/25/2023 Chronic respiratory failure with hypoxia (HCC) *11/05/2022 Duodenal ulcer [K26.9] 06/30/2023 Paroxysmal atrial fibrillation (HCC) [I48.0] 06/30/2023 Pneumonia due to infectious organism [J18.9] 06/30/2023 04/12/2024 Anemia requiring transfusions [D64.9] 07/01/2023 Acute on chronic hypoxic respiratory failure (H*07/09/2023 08/25/2023 Empyema (HCC) [J86.9] 07/09/2023 08/25/2023 Dysphagia [R13.10] 07/09/2023 Shock, septic (HCC) [A41.9, R65.21] 07/11/2023 08/25/2023 Antibiotic-associated diarrhea [K52.1, T36.95XA]07/14/2023 04/12/2024 Pulmonary emphysema (HCC) [J43.9] 07/19/2023 04/12/2024 Former smoker [Z87.891] 07/19/2023 NSTEMI (non-ST elevated myocardial infarction) *07/20/2023 History of GI bleed [Z87.19] 07/20/2023 04/12/2024 EARNEST (acute kidney injury) (HCC) [N17.9] 07/20/2023 08/25/2023 Elevated troponin [R79.89] 07/20/2023 08/25/2023 History of COPD [Z87.09] 07/20/2023 04/12/2024 Pleural effusion [J90] 07/24/2023 Acute respiratory failure with hypoxia (HCC) [J*07/24/2023 08/25/2023 Malnutrition of mild degree (HCC) [E44.1] 08/01/2023 ESRD (end stage renal diseas (more content not included)... Normal [facility] Yudith 07-12-2024 MARIANN Telephone (INTMWS) SNEHA CARDENAS ([id number]) 1955 F Date Time Provider Department 07/12/24 JULIO DRAPER INTMWS During your visit today, we recorded the following information about you: Sarah Peña, RN 07/12/2024 2:53 PM Signed Nathaly nurse with [facility] calling in as pt was discharged from [facility] yesterday for a COPD exacerbation secondary to pneumonia and RSV+. Nathaly saw patient today for start of care. States pt is doing pretty well. Has some weakness in lower extremities. Pt is usually is on 3 L of O2 but is currently on 5 L of O2 with pulse ox of 91%. Pt just took her last dose of Levaquin today and is on day 1 of Prednisone 40 mg for 5 days. Pt has a pretty bad cough-hard for pt to get mucous up. When she does, it is a thick yellow. Nathaly wants to keep a close eye on pt so nursing will see her 2x per week for 1 week then 1x per week for 2 weeks. Julio Draper MD 07/13/2024 10:05 AM Signed I agree with HH POC. Mary Kay Woodard RN 07/13/2024 10:17 AM Signed Called and left a detailed voicemail notifying Nathaly nurse with [facility] of providers message. Clinic phone number was left in case she had any questions. Mary Kay Woodard RN Allergies As of Date: 07/12/2024 Noted Allergy Reaction KEFLEX (CEPHALEXIN) 10/04/2005 5 - Intolerance Comments: Tachycardia, palpitations. VANCOMYCIN 06/07/2024 4 - Hives Date Reviewed: 07/05/2024 Reviewed by: Anushka Alexis LPN - Fully Assessed Reason for Visit: Home Care Management [1305] Cmt: Nursing plan of care Prescriptions as of 07/13/2024 - isosorbide mononitrate ER (IMDUR) 60 mg 24 hr tablet Take 1 tablet by mouth once daily. - montelukast (SINGULAIR) 10 mg tablet Take 1 tablet by mouth daily at bedtime. - sucralfate (CARAFATE) 1 gram tablet Take 1 tablet by mouth two times a day. - pantoprazole DR (PROTONIX) 40 mg tablet Take 1 tablet by mouth once daily. - albuterol HFA (PROAIR HFA) 90 mcg/actuation inhaler Inhale 2 Puffs as instructed every 4 hours as needed for wheezing/shortness of breath. - atorvastatin (LIPITOR) 40 mg tablet Take 1 tablet by mouth daily at bedtime. For cholesterol. - busPIRone (BUSPAR) 10 mg tablet Take 1 tablet by mouth two times a day. - upyrrtgavy-gjfsagxx-nd rmoterol (BREZTRI) 160-9-4.8 mcg/actuation HFA aerosol inhaler Inhale 2 Puffs as instructed two times a day. - fluticasone (FLONASE) 50 mcg/actuation nasal spray Use 2 Sprays in each nostril once daily. Rinse mouth after use. - ondansetron orally disintegrating (ZOFRAN ODT) 4 mg disintegrating tablet Take 1 tablet by mouth every 8 hours as needed for nausea/vomiting. - OXYGEN, HOME THERAPY, Inhale 3 L/min as instructed as directed. 3L NC continuous, up to 4L with exertion - acetaminophen (TYLENOL) 325 mg tablet Take 650 mg by mouth every 6 hours as needed. - nitroglycerin sublingual (NITROSTAT) 0.4 mg SL tablet Dissolve 0.4 mg under the tongue every 5 minutes as needed for chest pain. - polyethylene glycol 3350 (MIRALAX) 17 gram/dose powder Take 17 g by mouth as needed for constipation. Dissolve dose in 4 - 8 ounces of liquid and take as directed. - ipratropium-albuterol (DUONEB) 0.5 mg-3 mg(2.5 mg base)/3 mL nebu Inhale 3 mL as instructed every 4 hours as needed for wheezing/shortness of breath. Problem List As Of Date 07/12/2024 Noted Resolved Tobacco use disorder [F17.200] 11/02/2007 02/10/2017 Essential tremor [G25.0] 11/02/2007 Other specified disorder of gallbladder [K82.8] 12/11/2007 07/20/2012 Unspecified gastritis and gastroduodenitis with*02/09/2010 07/15/2015 Blood in stool [K92.1] 02/09/2010 07/20/2012 Loss of weight [R63.4] 02/09/2010 07/20/2012 Upper GI bleed [K92.2] 02/09/2010 04/12/2024 Acute gastritis without mention of hemorrhage [*02/09/2010 07/20/2012 Essential hypertension, benign [I10] 05/17/2011 07/15/2015 Migraine headache [G43.909] 07/15/2015 Irritable bowel syndrome [K58.9] 07/15/2015 Scoliosis [M41.9] 02/10/2017 Environmental allergies [Z91.09] History of colon polyps [Z86.0100] 07/15/2015 Chronic obstructive pulmonary disease (HCC) [J4*07/25/2012 Cervical disc disorder with radiculopathy [M50.*08/15/2015 02/10/2017 DDD (degenerative disc disease), cervical [M50.*08/15/2015 02/10/2017 Primary hypertension [I10] 06/03/2016 Asthma [J45.909] 02/15/2019 Hyperlipidemia [E78.5] 02/15/2019 Age-related osteoporosis without current pathol*08/28/2021 Hypoxemia [R09.02] 05/01/2021 08/25/2023 Lung nodule [R91.1] 05/12/2021 Elevated blood pressure reading [R03.0] 05/03/2022 08/25/2023 Chronic respiratory failure with hypoxia (HCC) *11/05/2022 Duodenal ulcer [K26.9] 06/30/2023 Paroxysmal atrial fibrillation (HCC) [I48.0] 06/30/2023 Pneumonia due to infectious organism [J18.9] 06/30/2023 04/12/2024 Anemia requiring transfusions [D64.9] 07/01/2023 Acute on chronic hypoxic respiratory failure ( (more content not included)... Normal [facility] Basic Metabolic Profile (BMP )on 07-11-2024 BUN/CRE 17.2 RATIO Normal 10-20 [facility] Comment on above: Performed By: #### L 500.2500, L100.0500 ####[facility] [address] [place], [address] CA,Total 9.0 mg/dL Normal 8.5-10.1 [facility] Comment on above: Performed By: #### L 500.2500, L100.0500 ####[facility] [address] [place], [address] Chloride [Moles/Vol] 103 mmol/L Normal 98-107 [facility] Comment on above: Performed By: #### L 500.2500, L100.0500 ####[facility] [address] [place], [address] CO2 [Moles/Vol] 26.0 mmol/L Normal 21.0-32.0 [facility] Comment on above: Performed By: #### L 500.2500, L100.0500 ####[facility] [address] [place], [address] Creatinine [Mass/Vol] 3.90 mg/dL High 0.55-1.02 [facility] Comment on above: Result Comment: The validity of the calculated GFR GFRAA in patients over70 years has not been determined. Clinical correlation isessential. Performed By: #### L 500.2500, L100.0500 ####[facility] [address] [place], [address] ECRCL 11.92 ml/min Normal [facility] Comment on above: Performed By: #### L 500.2500, L100.0500 ####[facility] [address] [place], [address] EST GFR - AA 15 mL/min Low >60 [facility] Comment on above: Result Comment: Afri can Micronesian GFR Calc Performed By: #### L 500.2500, L100.0500 ####[facility] [address] [place], [address] GAP 7 Normal 5-15 [facility] Comment on above: Performed By: #### L 500.2500, L100.0500 ####[facility] [address] [place], [address] GFR/1.73 sq M.predicted among non-blacks MDRD (S/P/Bld) [Vol rate/Area] 12 mL/min/{1.73_m2} Low >60 [facility] Comment on above: Result Comment: Non- GFR Calc Performed By: #### L 500.2500, L100.0500 ####[facility] [address] [place], [address] Glucose [Mass/Vol] 90 mg/dL Normal 74-106 [facility] Comment on above: Performed By: #### L 500.2500, L100.0500 ####[facility] [address] [place], [address] Potassium [Moles/Vol] 4.4 mmol/L Normal 3.5-5.1 [facility] Comment on above: Performed By: #### L 500.2500, L100.0500 ####[facility] [address] [place], [address] Sodium [Moles/Vol] 136 mmol/L Normal 136-145 [facility] Comment on above: Performed By: #### L 500.2500, L100.0500 ####[facility] [address] [place], [address] Urea nitrogen [Mass/Vol] 67 mg/dL High 7-18 [facility] Comment on above: Performed By: #### L 500.2500, L100.0500 ####[facility] [address] [place], [address] Blood urea nitrogen (BUN)/cr eatinine ratioOrdered By: Diana Santillan on 07-11-2024 Blood urea nitrogen (BUN)/creatinine ratio 17.2 RATIO 10-20 [facility] CBC-Complete Blood Cnt No Di ffon 07-11-2024 Erythrocyte distribution width (RBC) [Ratio] 13.2 % Normal 11.6-14.6 [facility] Comment on above: Performed By: #### L 500.2500, L100.0500 ####[facility] [address] [place], [address] Hematocrit (Bld) [Volume fraction] 33.2 % Low 37-47 [facility] Comment on above: Performed By: #### L 500.2500, L100.0500 ####[facility] [address] [place], [address] Hemoglobin (Bld) [Mass/Vol] 10.5 g/dL Low 12.0-15.0 [facility] Comment on above: Performed By: #### L 500.2500, L100.0500 ####[facility] [address] [place], [address] MCH (RBC) [Entitic mass] 30.0 pg Normal 27.0-32.0 [facility] Comment on above: Performed By: #### L 500.2500, L100.0500 ####[facility] [address] [place], [address] MCHC (RBC) [Mass/Vol] 31.6 g/dL Low 32-36 [facility] Comment on above: Performed By: #### L 500.2500, L100.0500 ####[facility] [address] [place], [address] MCV (RBC) [Entitic vol] 94.9 fL Normal 81-99 [facility] Comment on above: Performed By: #### L 500.2500, L100.0500 ####[facility] [address] [place], [address] Platelet mean volume (Bld) [Entitic vol] 10.2 fL Normal 6.2-12.0 [facility] Comment on above: Performed By: #### L 500.2500, L100.0500 ####[facility] [address] [place], [address] Platelets (Bld) [#/Vol] 238 10*3/uL Normal 150-450 [facility] Comment on above: Performed By: #### L 500.2500, L100.0500 ####[facility] [address] [place], [address] RBC (Bld) [#/Vol] 3.50 10*6/uL Low 4.2-5.4 [facility] Comment on above: Performed By: #### L 500.2500, L100.0500 ####[facility] [address] [place], [address] RDW SD 45.6 fl High 35.1-43.9 [facility] Comment on above: Performed By: #### L 500.2500, L100.0500 ####[facility] [address] [place], [address] WBC (Bld) [#/Vol] 9.8 10*3/uL Normal 4.4-11.0 [facility] Comment on above: Performed By: #### L 500.2500, L100.0500 ####[facility] [address] [place], [address] Calcium [Mass/Vol]Ordered By : Diana Santillan on 07-11-2024 Serum or plasma calcium measurement (mass/volume) 9.0 mg/dL 8.5-10.1 [facility] Carbon dioxide measurementOr dered By: Diana Santillan on 07-11-2024 CO2 [Moles/Vol] 26.0 mmol/L 21.0-32.0 [facility] Carbon dioxide measurement 26.0 mmol/L 21.0-32.0 [facility] Chloride measurementOrdered By: Diana Santillan on 07-11-2024 Chloride [Moles/Vol] 103 mmol/L 98-107 [facility] Chloride measurement 103 mmol/L 98-107 [facility] Creatinine [Mass/Vol]Ordered By: Diana Santillan on 07-11-2024 Serum or plasma creatinine measurement (mass/volume) 3.90 mg/dL High 0.55-1.02 [facility] Discharge Instructionon -0 Discharge Instruction Normal [facility] Discharge Instruction Normal [facility] Erythrocyte distribution wid th (RBC) [Entitic vol]Ordered By: Diana Santillan on 07-11-2024 Erythrocyte distribution width standard deviation 45.6 fl High 35.1-43.9 [facility] Erythrocyte distribution wid th (RBC) [Ratio]Ordered By: Diana Santillan on 07-11-2024 Erythrocyte distribution width ratio 13.2 % 11.6-14.6 [facility] Erythrocyte distribution wid th ratioOrdered By: Diana Santillan on 07-11-2024 Erythrocyte distribution width (RBC) [Ratio] 13.2 % 11.6-14.6 [facility] Erythrocyte distribution wid th standard deviationOrdered By: Diana Santillan on 07-11-2024 Erythrocyte distribution width (RBC) [Ratio] 45.6 fl High 35.1-43.9 [facility] Estimated glomerular filtrat ion rate (GFR) AmericanOrdered By: Diana Santillan on 07-11-2024 Estimated glomerular filtration rate (GFR) 15 mL/min Low >60 [facility] Estimation of creatinine magdiel aranceOrdered By: Diana Santillan on 07-11-2024 Estimation of creatinine clearance 11.92 ml/min [facility] Glomerular filtration rate ( GFR) estimationOrdered By: Diana Santillan on 07-11-2024 GFR/1.73 sq M.predicted among non-blacks MDRD (S/P/Bld) [Vol rate/Area] 12 mL/min/{1.73_m2} Low >60 [facility] Glomerular filtration rate (GFR) estimation 12 mL/min Low >60 [facility] Glucose measurementOrdered B y: Diana Santillan on 07-11-2024 Glucose [Mass/Vol] 90 mg/dL 74-106 [facility] Glucose measurement 90 mg/dL 74-106 [facility] Hematocrit Auto (Bld) [Volum e fraction]Ordered By: Diana Santillan on 07-11-2024 Hematocrit (Bld) [Volume fraction] 33.2 % Low 37-47 [facility] Automated blood hematocrit (percentage) 33.2 % Low 37-47 [facility] Hemoglobin measurementOrdere d By: Diana Santillan on 07-11-2024 Hemoglobin (Bld) [Mass/Vol] 10.5 g/dL Low 12.0-15.0 [facility] Hemoglobin measurement 10.5 g/dL Low 12.0-15.[address] [facility] MCV (RBC) [Entitic vol]Order ed By: Diana Santillan on 07-11-2024 MCV (mean corpuscular volume) determination 94.9 fL 81-99 [facility] MCV (mean corpuscular volume ) determinationOrdered By: Diana Santillan on 07-11-2024 MCV (RBC) [Entitic vol] 94.9 fL 81-99 [facility] Mean corpuscular hemoglobin (MCH) determinationOrdered By: Diana Santillan on 07-11-2024 MCH (RBC) [Entitic mass] 30.0 pg 27.0-32.0 [facility] Mean corpuscular hemoglobin (MCH) determination 30.0 pg 27.0-32.0 [facility] Mean corpuscular hemoglobin concentration (MCHC) determinationOrdered By: Diana Santillan on 07-11-2024 Mean corpuscular hemoglobin concentration (MCHC) determination 31.6 g/dL Low 32-36 [facility] Mean platelet volume determi nationOrdered By: Diana Santillan on 07-11-2024 Mean platelet volume determination 10.2 fl 6.2-12.0 [facility] Platelet countOrdered By: Nirmala Santillan on 07-11-2024 Platelets (Bld) [#/Vol] 238 10*3/uL 150-450 [facility] Platelet count 238 K/mm3 150-450 [facility] Potassium measurementOrdered By: Diana Santillan on 07-11-2024 Potassium [Moles/Vol] 4.4 mmol/L 3.5-5.1 [facility] Potassium measurement 4.4 mmol/L 3.5-5.1 [facility] RBC Auto (Bld) [#/Vol]Ordere d By: Diana Santillan on 07-11-2024 RBC (Bld) [#/Vol] 3.50 10*6/uL Low 4.2-5.4 [facility] Automated blood erythrocyte count 3.50 M/mm3 Low 4.2-5.4 [facility] Respiratory Cultureon 2024 RESPC Presumptive C albica ns Amount Growth 1+ Normal [facility] Comment on above: Performed By: #### M 100.2000, M100.2400 ####[facility] [address] [place], [place], [id number] Serum anion gap measurementO rdered By: Diana Santillan on 07-11-2024 Serum anion gap measurement 7 5-15 [facility] Serum or plasma calcium rena urement (mass/volume)Ordered By: Diana Santillan on 07-11-2024 Calcium [Mass/Vol] 9.0 mg/dL 8.5-10.1 [facility] Serum or plasma creatinine m easurement (mass/volume)Ordered By: Diana Santillan on 07-11-2024 Creatinine [Mass/Vol] 3.90 mg/dL High 0.55-1.02 [facility] Serum or plasma urea nitroge n measurement (mass/volume)Ordered By: Diana Santillan on 07-11-2024 Urea nitrogen [Mass/Vol] 67 mg/dL High - [facility] Sodium levelOrdered By: Sofia Santillan on 07-11-2024 Sodium [Moles/Vol] 136 mmol/L 136-145 [facility] Sodium level 136 mmol/L 136-145 [facility] Urea nitrogen [Mass/Vol]Orde red By: Diana Santillan on 07-11-2024 Serum or plasma urea nitrogen measurement (mass/volume) 67 mg/dL High - [facility] White blood cell (WBC) count Ordered By: Diana Santillan on 07-11-2024 WBC (Bld) [#/Vol] 9.8 10*3/uL 4.4-11.0 [facility] White blood cell (WBC) count 9.8 K/mm3 4.4-11.0 [facility] Basic Metabolic Profile (BMP )on 07-10-2024 BUN/CRE 13.5 RATIO Normal 10-20 [facility] Comment on above: Performed By: #### L 500.2500 ####[facility] [address] [place], [address] CA,Total 8.9 mg/dL Normal 8.5-10.1 [facility] Comment on above: Performed By: #### L 500.2500 ####[facility] [address] [place], [address] Chloride [Moles/Vol] 102 mmol/L Normal 98-107 [facility] Comment on above: Performed By: #### L 500.2500 ####[facility] [address] [place], [address] CO2 [Moles/Vol] 26.0 mmol/L Normal 21.0-32.0 [facility] Comment on above: Performed By: #### L 500.2500 ####[facility] [address] [place], [address] Creatinine [Mass/Vol] 3.42 mg/dL High 0.55-1.02 [facility] Comment on above: Result Comment: The validity of the calculated GFR GFRAA in patients over70 years has not been determined. Clinical correlation isessential. Performed By: #### L 500.2500 ####[facility] [address] [place], [address] ECRCL 13.60 ml/min Normal [facility] Comment on above: Performed By: #### L 500.2500 ####[facility] [address] [place], [address] EST GFR - AA 17 mL/min Low >60 [facility] Comment on above: Result Comment: Afri can Micronesian GFR Calc Performed By: #### L 500.2500 ####[facility] [address] [place], [address] GAP 7 Normal 5-15 [facility] Comment on above: Performed By: #### L 500.2500 ####[facility] [address] [place], [address] GFR/1.73 sq M.predicted among non-blacks MDRD (S/P/Bld) [Vol rate/Area] 14 mL/min/{1.73_m2} Low >60 [facility] Comment on above: Result Comment: Non- GFR Calc Performed By: #### L 500.2500 ####[facility] [address] [place], [address] Glucose [Mass/Vol] 94 mg/dL Normal 74-106 [facility] Comment on above: Performed By: #### L 500.2500 ####[facility] [address] [place], [address] Potassium [Moles/Vol] 4.1 mmol/L Normal 3.5-5.1 [facility] Comment on above: Performed By: #### L 500.2500 ####[facility] [address] [place], [address] Sodium [Moles/Vol] 135 mmol/L Low 136-145 [facility] Comment on above: Performed By: #### L 500.2500 ####[facility] [address] [place], [address] Urea nitrogen [Mass/Vol] 46 mg/dL High 7-18 [facility] Comment on above: Performed By: #### L 500.2500 ####[facility] [address] [place], [address] ALP [Catalytic activity/Vol] Ordered By: January Perez on 07-09-2024 Serum or plasma alkaline phosphatase measurement 104 U/L 45-117 [facility] ALT [Catalytic activity/Vol] Ordered By: January Perez on 07-09-2024 Serum or plasma alanine aminotransferase (ALT) measurement 23 U/L 13-56 [facility] Absolute lymphocyte countOrd ered By: January Perez on 07-09-2024 Lymphocytes Auto (Unsp spec) [#/Vol] 0.71 10*3/uL Low 0.83-4.51 [facility] Absolute neutrophil countOrd ered By: January Perez on 07-09-2024 Absolute neutrophil count 11.6 X10^3/uL High 2.0-7.7 [facility] Albumin [Mass/Vol]Ordered By : January Perez on 07-09-2024 Serum or plasma albumin measurement (mass/volume) 3.6 g/dL 3.2-5.0 [facility] Albumin to globulin ratioOrd ered By: January Perez on 07-09-2024 Albumin to globulin ratio 1.1 RATIO 0.9-2.4 [facility] Automated lymphocyte count a s percentage of total leukocytesOrdered By: January Perez on 07-09-2024 Lymphocytes/100 WBC Auto (Unsp spec) 5.6 % Low 19-41 [facility] Basophil percentageOrdered B y: January Perez on 07-09-2024 Basophils/100 WBC (Bld) 0.2 % 0-1 [facility] Basophil percentage 0.2 % 0-1 [facility] Bilirubin, totalOrdered By: January Perez on 07-09-2024 Bilirubin [Mass/Vol] 0.40 mg/dL 0.20-1.00 [facility] Bilirubin, total 0.40 mg/dL 0.20-1.00 [facility] CBC W/Diff, Automatedon Absolute Lymph 0.71 X10 3/uL Low 0.83-4.51 [facility] Comment on above: Performed By: #### L 501.2300, L500.4050, L100.0100, L501.5200 ####[facility] [address] [place], [address] Absolute Neut 11.6 X10 3/uL High 2.0-7.7 [facility] Comment on above: Performed By: #### L 501.2300, L500.4050, L100.0100, L501.5200 ####[facility] [address] [place], [address] Basophils/100 WBC (Bld) 0.2 % Normal 0-1 [facility] Comment on above: Performed By: #### L 501.2300, L500.4050, L100.0100, L501.5200 ####[facility] [address] [place], [address] Eosinophils/100 WBC (Bld) 0.0 % Normal 0-5 [facility] Comment on above: Performed By: #### L 501.2300, L500.4050, L100.0100, L501.5200 ####[facility] [address] [place], [address] Erythrocyte distribution width (RBC) [Ratio] 13.0 % Normal 11.6-14.6 [facility] Comment on above: Performed By: #### L 501.2300, L500.4050, L100.0100, L501.5200 ####[facility] [address] [place], [address] Hematocrit (Bld) [Volume fraction] 32.7 % Low 37-47 [facility] Comment on above: Performed By: #### L 501.2300, L500.4050, L100.0100, L501.5200 ####[facility] [address] [place], [address] Hemoglobin (Bld) [Mass/Vol] 10.6 g/dL Low 12.0-15.0 [facility] Comment on above: Performed By: #### L 501.2300, L500.4050, L100.0100, L501.5200 ####[facility] [address] [place], [address] IG% 0.600 Normal 0.0-0.9 [facility] Comment on above: Result Comment: IG% - Immature Granulocytes (promyelocytes, myelocytes andmetamyelocytes) > 1% indicates that a LEFT SHIFT is Present. Performed By: #### L 501.2300, L500.4050, L100.0100, L501.5200 ####[facility] [address] [place], [address] Lymphocytes/100 WBC (Bld) 5.6 % Low 19-41 [facility] Comment on above: Performed By: #### L 501.2300, L500.4050, L100.0100, L501.5200 ####[facility] [address] [place], [address] MCH (RBC) [Entitic mass] 30.4 pg Normal 27.0-32.0 [facility] Comment on above: Performed By: #### L 501.2300, L500.4050, L100.0100, L501.5200 ####[facility] [address] [place], [address] MCHC (RBC) [Mass/Vol] 32.4 g/dL Normal 32-36 [facility] Comment on above: Performed By: #### L 501.2300, L500.4050, L100.0100, L501.5200 ####[facility] [address] [place], [address] MCV (RBC) [Entitic vol] 93.7 fL Normal 81-99 [facility] Comment on above: Performed By: #### L 501.2300, L500.4050, L100.0100, L501.5200 ####[facility] [address] [place], [address] Monocytes/100 WBC (Bld) 2.7 % Normal 0-10 [facility] Comment on above: Performed By: #### L 501.2300, L500.4050, L100.0100, L501.5200 ####[facility] [address] [place], [address] Neutrophils/100 WBC (Bld) 90.9 % High 47-70 [facility] Comment on above: Performed By: #### L 501.2300, L500.4050, L100.0100, L501.5200 ####[facility] [address] [place], [address] Nucleated RBC (Bld) [#/Vol] 0 10*3/uL Normal 0-5 [facility] Comment on above: Performed By: #### L 501.2300, L500.4050, L100.0100, L501.5200 ####[facility] [address] [place], [address] Platelet mean volume (Bld) [Entitic vol] 9.5 fL Normal 6.2-12.0 [facility] Comment on above: Performed By: #### L 501.2300, L500.4050, L100.0100, L501.5200 ####[facility] [address] [place], [address] Platelets (Bld) [#/Vol] 227 10*3/uL Normal 150-450 [facility] Comment on above: Performed By: #### L 501.2300, L500.4050, L100.0100, L501.5200 ####[facility] [address] [place], [address] RBC (Bld) [#/Vol] 3.49 10*6/uL Low 4.2-5.4 [facility] Comment on above: Performed By: #### L 501.2300, L500.4050, L100.0100, L501.5200 ####[facility] [address] [place], [address] RDW SD 44.7 fl High 35.1-43.9 [facility] Comment on above: Performed By: #### L 501.2300, L500.4050, L100.0100, L501.5200 ####[facility] [address] [place], [address] WBC (Bld) [#/Vol] 12.7 10*3/uL High 4.4-11.0 [facility] Comment on above: Performed By: #### L 501.4880, L500.4050, L100.0100, L501.5200 ####[facility] [address], [address] [facility] 07-09-2024 [facility] Telephone (INTMWS) SNEHA CARDENAS ([id number]) 1955 F Date Time Provider Department 07/09/24 JULIO DRAPER INTWS During your visit today, we recorded the following information about you: Genna Lowry RN 07/09/2024 12:15 PM Signed Nell from [facility] calls and states that patient is being discharged from [facility] either today or tomorrow with the diagnosis of RSV. Nell asking if provider willing to follow patient with orders for group home, occupational therapy, and physical therapy. If agreeable please give Nell a call back . Thank you, JAMI Cannon Victor H, MD 07/09/2024 12:26 PM Signed I will follow. Magali Casey MA 07/09/2024 1:17 PM Signed Left detailed message on confidential vm Magali Casey MA Allergies As of Date: 07/09/2024 Noted Allergy Reaction KEFLEX (CEPHALEXIN) 10/04/2005 5 - Intolerance Comments: Tachycardia, palpitations. VANCOMYCIN 06/07/2024 4 - Hives Date Reviewed: 07/05/2024 Reviewed by: Anushka Alexis LPN - Fully Assessed Reason for Visit: Home Health Orders [Other] Prescriptions as of 07/09/2024 - isosorbide mononitrate ER (IMDUR) 60 mg 24 hr tablet Take 1 tablet by mouth once daily. - montelukast (SINGULAIR) 10 mg tablet Take 1 tablet by mouth daily at bedtime. - sucralfate (CARAFATE) 1 gram tablet Take 1 tablet by mouth two times a day. - pantoprazole DR (PROTONIX) 40 mg tablet Take 1 tablet by mouth once daily. - albuterol HFA (PROAIR HFA) 90 mcg/actuation inhaler Inhale 2 Puffs as instructed every 4 hours as needed for wheezing/shortness of breath. - atorvastatin (LIPITOR) 40 mg tablet Take 1 tablet by mouth daily at bedtime. For cholesterol. - busPIRone (BUSPAR) 10 mg tablet Take 1 tablet by mouth two times a day. - klfevrilch-senbzcoe-gb rmoterol (BREZTRI) 160-9-4.8 mcg/actuation HFA aerosol inhaler Inhale 2 Puffs as instructed two times a day. - fluticasone (FLONASE) 50 mcg/actuation nasal spray Use 2 Sprays in each nostril once daily. Rinse mouth after use. - ondansetron orally disintegrating (ZOFRAN ODT) 4 mg disintegrating tablet Take 1 tablet by mouth every 8 hours as needed for nausea/vomiting. - OXYGEN, HOME THERAPY, Inhale 3 L/min as instructed as directed. 3L NC continuous, up to 4L with exertion - acetaminophen (TYLENOL) 325 mg tablet Take 650 mg by mouth every 6 hours as needed. - nitroglycerin sublingual (NITROSTAT) 0.4 mg SL tablet Dissolve 0.4 mg under the tongue every 5 minutes as needed for chest pain. - polyethylene glycol 3350 (MIRALAX) 17 gram/dose powder Take 17 g by mouth as needed for constipation. Dissolve dose in 4 - 8 ounces of liquid and take as directed. - ipratropium-albuterol (DUONEB) 0.5 mg-3 mg(2.5 mg base)/3 mL nebu Inhale 3 mL as instructed every 4 hours as needed for wheezing/shortness of breath. Problem List As Of Date 07/09/2024 Noted Resolved Tobacco use disorder [F17.200] 11/02/2007 02/10/2017 Essential tremor [G25.0] 11/02/2007 Other specified disorder of gallbladder [K82.8] 12/11/2007 07/20/2012 Unspecified gastritis and gastroduodenitis with*02/09/2010 07/15/2015 Blood in stool [K92.1] 02/09/2010 07/20/2012 Loss of weight [R63.4] 02/09/2010 07/20/2012 Upper GI bleed [K92.2] 02/09/2010 04/12/2024 Acute gastritis without mention of hemorrhage [*02/09/2010 07/20/2012 Essential hypertension, benign [I10] 05/17/2011 07/15/2015 Migraine headache [G43.909] 07/15/2015 Irritable bowel syndrome [K58.9] 07/15/2015 Scoliosis [M41.9] 02/10/2017 Environmental allergies [Z91.09] History of colon polyps [Z86.0100] 07/15/2015 Chronic obstructive pulmonary disease (HCC) [J4*07/25/2012 Cervical disc disorder with radiculopathy [M50.*08/15/2015 02/10/2017 DDD (degenerative disc disease), cervical [M50.*08/15/2015 02/10/2017 Primary hypertension [I10] 06/03/2016 Asthma [J45.909] 02/15/2019 Hyperlipidemia [E78.5] 02/15/2019 Age-related osteoporosis without current pathol*08/28/2021 Hypoxemia [R09.02] 05/01/2021 08/25/2023 Lung nodule [R91.1] 05/12/2021 Elevated blood pressure reading [R03.0] 05/03/2022 08/25/2023 Chronic respiratory failure with hypoxia (HCC) *11/05/2022 Duodenal ulcer [K26.9] 06/30/2023 Paroxysmal atrial fibrillation (HCC) [I48.0] 06/30/2023 Pneumonia due to infectious organism [J18.9] 06/30/2023 04/12/2024 Anemia requiring transfusions [D64.9] 07/01/2023 Acute on chronic hypoxic respiratory failure (H*07/09/2023 08/25/2023 Empyema (HCC) [J86.9] 07/09/2023 08/25/2023 Dysphagia [R13.10] 07/09/2023 Shock, septic (HCC) [A41.9, R65.21] 07/11/2023 08/25/2023 Antibiotic-associated diarrhea [K52.1, T36.95XA]07/14/2023 04/12/2024 Pulmonary emphysema (HCC) [J43.9] 07/19/2023 04/12/2024 Former smoker [Z87.891] 07/19/2023 NSTEMI (non-ST elevated myocardial infarction) *07/20/2023 History of GI bleed [Z87.19] 07/20 (more content not included)... Normal [facility] ilon 07-09-2024 Albumin [Mass/Vol] 3.6 g/dL Normal 3.2-5.0 [facility] Comment on above: Performed By: #### L 501.2300, L500.4050, L100.0100, L501.5200 ####[facility] [address] [place], [address] Albumin/Globulin [Mass ratio] 1.1 {ratio} Normal 0.9-2.4 [facility] Comment on above: Performed By: #### L 501.2300, L500.4050, L100.0100, L501.5200 ####[facility] [address] [place], [address] ALK P 104 U/L Normal 45-117 [facility] Comment on above: Performed By: #### L 501.2300, L500.4050, L100.0100, L501.5200 ####[facility] [address] [place], [address] ALT [Catalytic activity/Vol] 23 U/L Normal 13-56 [facility] Comment on above: Performed By: #### L 501.2300, L500.4050, L100.0100, L501.5200 ####[facility] [address] [place], [address] AST [Catalytic activity/Vol] 19 U/L Normal 15-37 [facility] Comment on above: Performed By: #### L 501.2300, L500.4050, L100.0100, L501.5200 ####[facility] [address] [place], [address] Bilirubin [Mass/Vol] 0.40 mg/dL Normal 0.20-1.00 [facility] Comment on above: Result Comment: For patients on eltrombopag therapy, use of Dimension Pierson TBIL is not recommended. Performed By: #### L 501.2300, L500.4050, L100.0100, L501.5200 ####[facility] [address] [place], [address] BUN/CRE 10.7 RATIO Normal 10-20 [facility] Comment on above: Performed By: #### L 501.2300, L500.4050, L100.0100, L501.5200 ####[facility] [address] [place], [address] CA,Total 9.3 mg/dL Normal 8.5-10.1 [facility] Comment on above: Performed By: #### L 501.2300, L500.4050, L100.0100, L501.5200 ####[facility] [address] [place], [address] Chloride [Moles/Vol] 101 mmol/L Normal 98-107 [facility] Comment on above: Performed By: #### L 501.2300, L500.4050, L100.0100, L501.5200 ####[facility] [address] [place], [address] CO2 [Moles/Vol] 28.0 mmol/L Normal 21.0-32.0 [facility] Comment on above: Performed By: #### L 501.2300, L500.4050, L100.0100, L501.5200 ####[facility] [address] [place], [address] Creatinine [Mass/Vol] 4.20 mg/dL High 0.55-1.02 [facility] Comment on above: Result Comment: The validity of the calculated GFR GFRAA in patients over70 years has not been determined. Clinical correlation isessential. Performed By: #### L 501.2300, L500.4050, L100.0100, L501.5200 ####[facility] [address] [place], [address] ECRCL 11.07 ml/min Normal [facility] Comment on above: Performed By: #### L 501.2300, L500.4050, L100.0100, L501.5200 ####[facility] [address] [place], [address] EST GFR - AA 14 mL/min Low >60 [facility] Comment on above: Result Comment: Afri can Micronesian GFR Calc Performed By: #### L 501.2300, L500.4050, L100.0100, L501.5200 ####[facility] [address] [place], [address] GAP 7 Normal 5-15 [facility] Comment on above: Performed By: #### L 501.2300, L500.4050, L100.0100, L501.5200 ####[facility] [address] [place], [address] GFR/1.73 sq M.predicted among non-blacks MDRD (S/P/Bld) [Vol rate/Area] 11 mL/min/{1.73_m2} Low >60 [facility] Comment on above: Result Comment: Non- GFR Calc Performed By: #### L 501.2300, L500.4050, L100.0100, L501.5200 ####[facility] [address] [place], [address] Globulin (S) [Mass/Vol] 3.4 g/dL Normal 2.2-4.2 [facility] Comment on above: Performed By: #### L 501.2300, L500.4050, L100.0100, L501.5200 ####[facility] [address] [place], [address] Glucose [Mass/Vol] 149 mg/dL High 74-106 [facility] Comment on above: Result Comment: Fast ing Glucose result greater than or equal to 126 mg/dLsuggests DIABETES MELLITUS per A.D.A. criteria. Performed By: #### L 501.2300, L500.4050, L100.0100, L501.5200 ####[facility] [address] [place], [address] Potassium [Moles/Vol] 4.3 mmol/L Normal 3.5-5.1 [facility] Comment on above: Performed By: #### L 501.2300, L500.4050, L100.0100, L501.5200 ####[facility] [address] [place], [address] Sodium [Moles/Vol] 135 mmol/L Low 136-145 [facility] Comment on above: Performed By: #### L 501.2300, L500.4050, L100.0100, L501.5200 ####[facility] [address] [place], [address] T PROT 7.0 g/dL Normal 6.4-8.2 [facility] Comment on above: Performed By: #### L 501.2300, L500.4050, L100.0100, L501.5200 ####[facility] [address] [place], [address] Urea nitrogen [Mass/Vol] 45 mg/dL High 7-18 [facility] Comment on above: Performed By: #### L 501.2300, L500.4050, L100.0100, L501.5200 ####[facility] [address] [place], [address] Consultation - Nephrologyon 07-09-2024 Consultation - Nephrology Normal [facility] Eosinophil percentageOrdered By: January Perez on 07-09-2024 Eosinophils/100 WBC (Bld) 0.0 % 0-5 [facility] Eosinophil percentage 0.0 % 0-5 [facility] Gram Stainon 07-09-2024 GS Acceptable Specimen? Yes (<25 Epithelial cells per/lpf) Gram Stain 3+ Gram positive cocci Rare Yeast Like Organisms 2+ White Blood Cells No Epithelial cells Normal [facility] Comment on above: Performed By: #### M 100.2000, M100.2400 ####[facility] [address] [place], [address] Immature granulocytes/100 WB C Auto (Bld)Ordered By: January Perez on 07-09-2024 Immature granulocytes/100 WBC (Bld) 0.600 % 0.0-0.9 [facility] Automated immature granulocyte percentage 0.600 % 0.0-0.9 [facility] Legionella Antigen Urineon 0 07-09-2024 LEGU Normal [facility] Comment on above: Performed By: #### M 300.4600, M300.4500 ####[facility] [address] [place], [address] Lymphocytes Auto (Unsp spec) [#/Vol]Ordered By: January Perez on 07-09-2024 Absolute lymphocyte count 0.71 X10^3/uL Low 0.83-4.51 [facility] Lymphocytes/100 WBC Auto (Un sp spec)Ordered By: January Perez on 07-09-2024 Automated lymphocyte count as percentage of total leukocytes 5.6 % Low 19-41 [facility] Magnesiumon 07-09-2024 Magnesium [Mass/Vol] 2.1 mg/dL Normal 1.6-2.6 [facility] Comment on above: Performed By: #### L 501.2300, L500.4050, L100.0100, L501.5200 ####[facility] [address] [place], [place], [id number] Magnesium measurementOrdered By: January Perez on 07-09-2024 Magnesium [Mass/Vol] 2.1 mg/dL 1.6-2.6 [facility] Magnesium measurement 2.1 mg/dL 1.6-2.6 [facility] Monocyte percentageOrdered B y: January Perez on 07-09-2024 Monocytes/100 WBC (Bld) 2.7 % 0-10 [facility] Monocyte percentage 2.7 % 0-10 [facility] Neutrophil percentageOrdered By: January Perez on 07-09-2024 Neutrophils/100 WBC (Bld) 90.9 % High 47-70 [facility] Neutrophil percentage 90.9 % High 47-70 [facility] No Panel InformationOrdered By: January Perez on 07-09-2024 19 U/L 15-37 [facility] Nucleated red blood cell per centageOrdered By: January Perez on 07-09-2024 Nucleated red blood cell percentage 0 % 0-5 [facility] Phosphoruson 07-09-2024 Phosphate [Mass/Vol] 5.0 mg/dL High 2.5-4.9 [facility] Comment on above: Performed By: #### L 501.2300, L500.4050, L100.0100, L501.5200 ####[facility] [address] [place], [place], [id number] Phosphorus measurementOrdere d By: January Perez on 07-09-2024 Phosphorus measurement 5.0 mg/dL High 2.5-4.[address] [facility] Serum globulin measurementOr dered By: January Perez on 07-09-2024 Globulin (S) [Mass/Vol] 3.4 g/dL 2.2-4.2 [facility] Serum globulin measurement 3.4 g/dL 2.2-4.2 [facility] Serum or plasma alanine montana otransferase (ALT) measurementOrdered By: January Perez on 07-09-2024 ALT [Catalytic activity/Vol] 23 U/L 13-56 [facility] Serum or plasma albumin rena urement (mass/volume)Ordered By: January Perez on 07-09-2024 Albumin [Mass/Vol] 3.6 g/dL 3.2-5.0 [facility] Serum or plasma alkaline malka sphatase measurementOrdered By: January Perez on 07-09-2024 ALP [Catalytic activity/Vol] 104 U/L 45-117 [facility] Strep pneumoniae Antig(UR,CS F)on 07-09-2024 STPAG Normal [facility] Comment on above: Performed By: #### M 300.4600, M300.4500 ####[facility] [address] [facility] [place], [place], [id number] Total proteinOrdered By: Karin Perez on 07-09-2024 Protein [Mass/Vol] 7.0 g/dL 6.4-8.2 [facility] Total protein 7.0 g/dL 6.4-8.2 [facility] Urine Legionella pneumophila antigen detectionOrdered By: January Perez on 07-09-2024 L. pneumophila Ag Ql (U) [facility] 12 Lead EKGon 07-08-2024 12 Lead EKG Normal [facility] BNP (brain natriuretic pepti de measurement)Ordered By: Hoang Foster on 07-08-2024 Natriuretic peptide B (Bld) [Mass/Vol] 65.2 pg/mL 0-100 [facility] BNP (brain natriuretic peptide measurement) 65.2 pg/mL 0-100 [facility] BNP,B-Type NATRIURETIC PEPTI Arian 07-08-2024 Natriuretic peptide B (Bld) [Mass/Vol] 65.2 pg/mL Normal 0-100 [facility] Comment on above: Performed By: #### L 501.5200, L100.0100, L500.2500, L501.2300, L503.6620 ####[facility] [address] [place], [address] Basic Metabolic Profile (BMP )on 07-08-2024 BUN/CRE 8.3 RATIO Low 10-20 [facility] Comment on above: Performed By: #### L 501.5200, L100.0100, L500.2500, L501.2300, L503.6620 ####[facility] [address] [place], [address] CA,Total 9.3 mg/dL Normal 8.5-10.1 [facility] Comment on above: Performed By: #### L 501.5200, L100.0100, L500.2500, L501.2300, L503.6620 ####[facility] [address] [place], [address] Chloride [Moles/Vol] 101 mmol/L Normal 98-107 [facility] Comment on above: Performed By: #### L 501.5200, L100.0100, L500.2500, L501.2300, L503.6620 ####[facility] [address] [place], [address] CO2 [Moles/Vol] 29.0 mmol/L Normal 21.0-32.0 [facility] Comment on above: Performed By: #### L 501.5200, L100.0100, L500.2500, L501.2300, L503.6620 ####[facility] [address] [place], [address] Creatinine [Mass/Vol] 3.51 mg/dL High 0.55-1.02 [facility] Comment on above: Result Comment: The validity of the calculated GFR GFRAA in patients over70 years has not been determined. Clinical correlation isessential. Performed By: #### L 501.5200, L100.0100, L500.2500, L501.2300, L503.6620 ####[facility] [address] [place], [address] ECRCL 14.45 ml/min Normal [facility] Comment on above: Performed By: #### L 501.5200, L100.0100, L500.2500, L501.2300, L503.6620 ####[facility] [address] [place], [address] EST GFR - AA 17 mL/min Low >60 [facility] Comment on above: Result Comment: Afri can Micronesian GFR Calc Performed By: #### L 501.5200, L100.0100, L500.2500, L501.2300, L503.6620 ####[facility] [address] [place], [address] GAP 8 Normal 5-15 [facility] Comment on above: Performed By: #### L 501.5200, L100.0100, L500.2500, L501.2300, L503.6620 ####[facility] [address] [place], [address] GFR/1.73 sq M.predicted among non-blacks MDRD (S/P/Bld) [Vol rate/Area] 14 mL/min/{1.73_m2} Low >60 [facility] Comment on above: Result Comment: Non- GFR Calc Performed By: #### L 501.5200, L100.0100, L500.2500, L501.2300, L503.6620 ####[facility] [address] [place], [address] Glucose [Mass/Vol] 114 mg/dL High 74-106 [facility] Comment on above: Result Comment: Fast ing Glucose result from 100 to 125 mg/dLsuggests IMPAIRED HOMEOSTASIS per A.D.A. criteria. Performed By: #### L 501.5200, L100.0100, L500.2500, L501.2300, L503.6620 ####[facility] [address] [place], [address] Potassium [Moles/Vol] 3.2 mmol/L Low 3.5-5.1 [facility] Comment on above: Performed By: #### L 501.5200, L100.0100, L500.2500, L501.2300, L503.6620 ####[facility] [address] [place], [address] Sodium [Moles/Vol] 138 mmol/L Normal 136-145 [facility] Comment on above: Performed By: #### L 501.5200, L100.0100, L500.2500, L501.2300, L503.6620 ####[facility] [address] [place], [address] Urea nitrogen [Mass/Vol] 29 mg/dL High 7-18 [facility] Comment on above: Performed By: #### L 501.5200, L100.0100, L500.2500, L501.2300, L503.6620 ####[facility] [address] [place], [address] CBC W/Diff, Automatedon 01-0 5-2024 Absolute Lymph 0.89 X10 3/uL Normal 0.83-4.51 [facility] Comment on above: Performed By: #### L 501.5200, L100.0100, L500.2500, L501.2300, L503.6620 ####[facility] [address] [place], [address] Absolute Neut 7.2 X10 3/uL Normal 2.0-7.7 [facility] Comment on above: Performed By: #### L 501.5200, L100.0100, L500.2500, L501.2300, L503.6620 ####[facility] [address] [place], [address] Basophils/100 WBC (Bld) 0.6 % Normal 0-1 [facility] Comment on above: Performed By: #### L 501.5200, L100.0100, L500.2500, L501.2300, L503.6620 ####[facility] [address] [place], [address] Eosinophils/100 WBC (Bld) 6.0 % High 0-5 [facility] Comment on above: Performed By: #### L 501.5200, L100.0100, L500.2500, L501.2300, L503.6620 ####[facility] [address] [place], [address] Erythrocyte distribution width (RBC) [Ratio] 13.0 % Normal 11.6-14.6 [facility] Comment on above: Performed By: #### L 501.5200, L100.0100, L500.2500, L501.2300, L503.6620 ####[facility] [address] [place], [address] Hematocrit (Bld) [Volume fraction] 32.6 % Low 37-47 [facility] Comment on above: Performed By: #### L 501.5200, L100.0100, L500.2500, L501.2300, L503.6620 ####[facility] [address] [place], [address] Hemoglobin (Bld) [Mass/Vol] 10.7 g/dL Low 12.0-15.0 [facility] Comment on above: Performed By: #### L 501.5200, L100.0100, L500.2500, L501.2300, L503.6620 ####[facility] [address] [place], [address] IG% 0.300 Normal 0.0-0.9 [facility] Comment on above: Result Comment: IG% - Immature Granulocytes (promyelocytes, myelocytes andmetamyelocytes) > 1% indicates that a LEFT SHIFT is Present. Performed By: #### L 501.5200, L100.0100, L500.2500, L501.2300, L503.6620 ####[facility] [address] [place], [address] Lymphocytes/100 WBC (Bld) 9.2 % Low 19-41 [facility] Comment on above: Performed By: #### L 501.5200, L100.0100, L500.2500, L501.2300, L503.6620 ####[facility] [address] [place], [address] MCH (RBC) [Entitic mass] 30.7 pg Normal 27.0-32.0 [facility] Comment on above: Performed By: #### L 501.5200, L100.0100, L500.2500, L501.2300, L503.6620 ####[facility] [address] [place], [address] MCHC (RBC) [Mass/Vol] 32.8 g/dL Normal 32-36 [facility] Comment on above: Performed By: #### L 501.5200, L100.0100, L500.2500, L501.2300, L503.6620 ####[facility] [address] [place], [address] MCV (RBC) [Entitic vol] 93.7 fL Normal 81-99 [facility] Comment on above: Performed By: #### L 501.5200, L100.0100, L500.2500, L501.2300, L503.6620 ####[facility] [address] [place], [address] Monocytes/100 WBC (Bld) 9.5 % Normal 0-10 [facility] Comment on above: Performed By: #### L 501.5200, L100.0100, L500.2500, L501.2300, L503.6620 ####[facility] [address] [place], [address] Neutrophils/100 WBC (Bld) 74.4 % High 47-70 [facility] Comment on above: Performed By: #### L 501.5200, L100.0100, L500.2500, L501.2300, L503.6620 ####[facility] [address] [place], [address] Nucleated RBC (Bld) [#/Vol] 0 10*3/uL Normal 0-5 [facility] Comment on above: Performed By: #### L 501.5200, L100.0100, L500.2500, L501.2300, L503.6620 ####[facility] [address] [place], [address] Platelet mean volume (Bld) [Entitic vol] 10.2 fL Normal 6.2-12.0 [facility] Comment on above: Performed By: #### L 501.5200, L100.0100, L500.2500, L501.2300, L503.6620 ####[facility] [address] [place], [address] Platelets (Bld) [#/Vol] 207 10*3/uL Normal 150-450 [facility] Comment on above: Performed By: #### L 501.5200, L100.0100, L500.2500, L501.2300, L503.6620 ####[facility] [address] [place], [address] RBC (Bld) [#/Vol] 3.48 10*6/uL Low 4.2-5.4 [facility] Comment on above: Performed By: #### L 501.5200, L100.0100, L500.2500, L501.2300, L503.6620 ####[facility] [address] [place], [address] RDW SD 44.7 fl High 35.1-43.9 [facility] Comment on above: Performed By: #### L 501.5200, L100.0100, L500.2500, L501.2300, L503.6620 ####[facility] [address] [place], [address] WBC (Bld) [#/Vol] 9.7 10*3/uL Normal 4.4-11.0 [facility] Comment on above: Performed By: #### L 501.5200, L100.0100, L500.2500, L501.2300, L503.6620 ####[facility] [address] [place], [address] Chest without Contraston Chest without Contrast Normal [facility] Emergency Department Summary on 07-08-2024 Emergency Department Summary Normal [facility] Gram stainOrdered By: Osmin Perez on 07-08-2024 Microscopic observation Gram stain Nom (Unsp spec) [facility] H AND P Exam - Hospitaliston 07-08-2024 H&P Exam - Hospitalist Normal [facility] Influenza virus A and B and SARS-CoV-2 (COVID-19) and Respiratory syncytial virus RNAOrdered By: Hoang Foster on 07-08-2024 SARS-CoV-2 (COVID-19) RNA FOZIA+probe Ql (Unsp spec) RSV Abnormal [facility] Influenza virus A and B and SARS-CoV-2 (COVID-19) and Respiratory syncytial virus RNA RSV Abnormal [facility] M100.678on 07-08-2024 M100.678 Normal [facility] Comment on above: Performed By: #### M 100.678 ####[facility] [address] [place], [address] Magnesiumon 07-08-2024 Magnesium [Mass/Vol] 1.9 mg/dL Normal 1.6-2.6 [facility] Comment on above: Performed By: #### L 501.5200, L100.0100, L500.2500, L501.2300, L503.6620 ####[facility] [address] [place], [place], [address] Microbial respiratory cultur eOrdered By: January Perez on 07-08-2024 Microorganism identified Cx Nom (Unsp spec) Presumptive C albicans Abnormal [facility] Microorganism identified Cx Nom (Unsp spec)Ordered By: January Perez on 07-08-2024 Microbial respiratory culture Presumptive C albicans Abnormal [facility] Phosphoruson 07-08-2024 Phosphate [Mass/Vol] 3.6 mg/dL Normal 2.5-4.9 [facility] Comment on above: Performed By: #### L 501.5200, L100.0100, L500.2500, L501.2300, L503.6620 ####[facility] [address] [place], [address] CNOVon 07-05-2024 CNOV Office Visit (INTMWS ) SNEHA CARDENAS ([id number]) 1955 F Date Time Provider Department 07/05/24 1:20 PM JULIO DRAPER INTMWS During your visit today, we recorded the following information about you: Temperature Pulse Respiration Blood pressure 97.9 degrees 104/minute 16/minute 142/64 Weight 63.8 kg Julio Draper MD 07/05/2024 2:13 PM Signed This note was created using NoteWriter. Subjective Patient presents with: ER F/U Sneha Reji Conor is a 69 year old female. She developed increased dyspnea and was referred to the ER from dialysis. She was treated for COPD exacerbation with nebulizer treatment. Chest xray showed some vascular congestion, but labs were overall benign. She felt this was related to rescheduled dialysis over the holidays. She felt back to baseline. Review of Systems Constitutional: Negative for chills, fatigue and fever. Respiratory: Negative. Cardiovascular: Negative for chest pain, palpitations and leg swelling. Gastrointestinal: Negative. ACTIVE PROBLEM LIST Essential Tremor Environmental Allergies Chronic Obstructive Pulmonary Disease (Hcc) Primary Hypertension Hyperlipidemia Age-Related Osteoporosis Without Current Pathological Fracture Lung Nodule Chronic Respiratory Failure With Hypoxia (Hcc) Duodenal Ulcer Paroxysmal Atrial Fibrillation (Hcc) Anemia Requiring Transfusions Dysphagia Former Smoker Nstemi (Non-St Elevated Myocardial Infarction) ([facility]) Pleural Effusion Malnutrition of Mild Degree (Hcc) Esrd (End Stage Renal Disease) ([facility]) Coronary Artery Disease Anxiety About Health Current Outpatient Medications Medication Sig isosorbide mononitrate ER (IMDUR) 60 mg 24 hr tablet Take 1 tablet by mouth once daily. montelukast (SINGULAIR) 10 mg tablet Take 1 tablet by mouth daily at bedtime. sucralfate (CARAFATE) 1 gram tablet Take 1 tablet by mouth two times a day. pantoprazole DR (PROTONIX) 40 mg tablet Take 1 tablet by mouth once daily. albuterol HFA (PROAIR HFA) 90 mcg/actuation inhaler Inhale 2 Puffs as instructed every 4 hours as needed for wheezing/shortness of breath. atorvastatin (LIPITOR) 40 mg tablet Take 1 tablet by mouth daily at bedtime. For cholesterol. busPIRone (BUSPAR) 10 mg tablet Take 1 tablet by mouth two times a day. dkhmgmjaxx-axystzxt-xy rmoterol (BREZTRI) 160-9-4.8 mcg/actuation HFA aerosol inhaler Inhale 2 Puffs as instructed two times a day. fluticasone (FLONASE) 50 mcg/actuation nasal spray Use 2 Sprays in each nostril once daily. Rinse mouth after use. ondansetron orally disintegrating (ZOFRAN ODT) 4 mg disintegrating tablet Take 1 tablet by mouth every 8 hours as needed for nausea/vomiting. OXYGEN, HOME THERAPY, Inhale 3 L/min as instructed as directed. 3L NC continuous, up to 4L with exertion acetaminophen (TYLENOL) 325 mg tablet Take 650 mg by mouth every 6 hours as needed. nitroglycerin sublingual (NITROSTAT) 0.4 mg SL tablet Dissolve 0.4 mg under the tongue every 5 minutes as needed for chest pain. polyethylene glycol 3350 (MIRALAX) 17 gram/dose powder Take 17 g by mouth as needed for constipation. Dissolve dose in 4 - 8 ounces of liquid and take as directed. ipratropium-albuterol (DUONEB) 0.5 mg-3 mg(2.5 mg base)/3 mL nebu Inhale 3 mL as instructed every 4 hours as needed for wheezing/shortness of breath. (Patient taking differently: Inhale 3 mL as instructed every 6 hours as needed for wheezing/shortness of breath.) No current facility-administered medications for this visit. Objective BP 142/64 (BP Site: Right Arm, BP Position: Sitting, BP Cuff Size: Large Adult) Pulse 104 Temp 36.6 ?C (97.9 ?F) (Temporal) Resp 16 Wt 63.8 kg (140 lb 10.5 oz) SpO2 97% BMI 24.52 kg/m? Physical Exam Constitutional: General: She is not in acute distress. Appearance: She is not diaphoretic. HENT: Nose: No congestion. Cardiovascular: Rate and Rhythm: Regular rhythm. Tachycardia present. Heart sounds: No murmur heard. No gallop. Pulmonary: Breath sounds: No decreased air movement. Rhonchi present. No wheezing or rales. Comments: On portable O2. Musculoskeletal: Right lower leg: No edema. Left lower leg: No edema. Neurological: General: No focal deficit present. Mental Status: She is alert. Comments: On wheelchair. Assessment and Plan 1. Chronic obstructive pulmonary disease with acute exacerbation (HCC) - ICD9: 491.21, ICD10: J44.1 (primary diagnosis) Controlled. 2. Chronic respiratory failure with hypoxia (HCC) - ICD9: 518.83, 799.02, ICD10: J96.11 Stable. 3. Primary hypertension - ICD9: 401.9, ICD10: I10 Labile. - Continue current medications 4. Paroxysmal atrial fibrillation (HCC) - ICD9: 427.31, ICD10: I48.0 - Controlled. Julio Draper MD Allergies As of Date: 07/05/2024 Noted Allergy Reaction KEFLEX (CEPHALEXIN) 10/04/2005 5 - Intoler (more content not included)... Normal [facility] 12 Lead EKGon 07-03-2024 12 Lead EKG Normal [facility] Absolute neutrophil countOrd ered By: Livan Murry on 07-03-2024 Absolute neutrophil count 6.5 X10^3/uL 2.0-7.7 [facility] BNP (brain natriuretic pepti de measurement)Ordered By: Livan Murry on 07-03-2024 BNP (brain natriuretic peptide measurement) 158.9 pg/mL High 0-100 [facility] BNP,B-Type NATRIURETIC PEPTI Arian 07-03-2024 Natriuretic peptide B (Bld) [Mass/Vol] 158.9 pg/mL High 0-100 [facility] Comment on above: Performed By: #### L 300.3900, L100.0100, L300.4310, L503.6620, L501.4020, L500.2500 ####[facility] [address] [place], [address] Bacteria LM.HPF (Urine sed) [#/Area]Ordered By: Livan Murry on 07-03-2024 Urine sediment bacteria count by microscopy (number/high power field) 1+ /hpf None Seen [facility] Basic Metabolic Profile (BMP )on 07-03-2024 BUN/CRE 8.2 RATIO Low 10-20 [facility] Comment on above: Order Comment: 'TROP ' Serial specimen #1, #2 or #3: 1 Performed By: #### L 300.3900, L100.0100, L300.4310, L503.6620, L501.4020, L500.2500 ####[facility] [address] [place], [address] CA,Total 8.5 mg/dL Normal 8.5-10.1 [facility] Comment on above: Order Comment: 'TROP ' Serial specimen #1, #2 or #3: 1 Performed By: #### L 300.3900, L100.0100, L300.4310, L503.6620, L501.4020, L500.2500 ####[facility] [address] [place], [address] Chloride [Moles/Vol] 98 mmol/L Normal 98-107 [facility] Comment on above: Order Comment: 'TROP ' Serial specimen #1, #2 or #3: 1 Performed By: #### L 300.3900, L100.0100, L300.4310, L503.6620, L501.4020, L500.2500 ####[facility] [address] [place], [address] CO2 [Moles/Vol] 33.0 mmol/L High 21.0-32.0 [facility] Comment on above: Order Comment: 'TROP ' Serial specimen #1, #2 or #3: 1 Performed By: #### L 300.3900, L100.0100, L300.4310, L503.6620, L501.4020, L500.2500 ####[facility] [address] [place], [address] Creatinine [Mass/Vol] 1.96 mg/dL High 0.55-1.02 [facility] Comment on above: Order Comment: 'TROP ' Serial specimen #1, #2 or #3: 1 Result Comment: The validity of the calculated GFR GFRAA in patients over70 years has not been determined. Clinical correlation isessential. Performed By: #### L 300.3900, L100.0100, L300.4310, L503.6620, L501.4020, L500.2500 ####[facility] [address] [place], [address] EST GFR - AA 33 mL/min Low >60 [facility] Comment on above: Order Comment: 'TROP ' Serial specimen #1, #2 or #3: 1 Result Comment: Afri can Micronesian GFR Calc Performed By: #### L 300.3900, L100.0100, L300.4310, L503.6620, L501.4020, L500.2500 ####[facility] [address] [place], [address] GAP 6 Normal 5-15 [facility] Comment on above: Order Comment: 'TROP ' Serial specimen #1, #2 or #3: 1 Performed By: #### L 300.3900, L100.0100, L300.4310, L503.6620, L501.4020, L500.2500 ####[facility] [address] [place], [address] GFR/1.73 sq M.predicted among non-blacks MDRD (S/P/Bld) [Vol rate/Area] 27 mL/min/{1.73_m2} Low >60 [facility] Comment on above: Order Comment: 'TROP ' Serial specimen #1, #2 or #3: 1 Result Comment: Non- GFR Calc Performed By: #### L 300.3900, L100.0100, L300.4310, L503.6620, L501.4020, L500.2500 ####[facility] [address] [place], [address] Glucose [Mass/Vol] 96 mg/dL Normal 74-106 [facility] Comment on above: Order Comment: 'TROP ' Serial specimen #1, #2 or #3: 1 Performed By: #### L 300.3900, L100.0100, L300.4310, L503.6620, L501.4020, L500.2500 ####[facility] [address] [place], [address] Potassium [Moles/Vol] 3.2 mmol/L Low 3.5-5.1 [facility] Comment on above: Order Comment: 'TROP ' Serial specimen #1, #2 or #3: 1 Performed By: #### L 300.3900, L100.0100, L300.4310, L503.6620, L501.4020, L500.2500 ####[facility] [address] [place], [address] Sodium [Moles/Vol] 137 mmol/L Normal 136-145 [facility] Comment on above: Order Comment: 'TROP ' Serial specimen #1, #2 or #3: 1 Performed By: #### L 300.3900, L100.0100, L300.4310, L503.6620, L501.4020, L500.2500 ####[facility] [address] [place], [address] Urea nitrogen [Mass/Vol] 16 mg/dL Normal 7-18 [facility] Comment on above: Order Comment: 'TROP ' Serial specimen #1, #2 or #3: 1 Performed By: #### L 300.3900, L100.0100, L300.4310, L503.6620, L501.4020, L500.2500 ####[facility] [address] [facility] [phone] Basophil percentageOrdered B y: Livan Murry on 07-03-2024 Basophil percentage 0.5 % 0-1 [facility] Blood urea nitrogen (BUN)/cr eatinine ratioOrdered By: Livan Murry on 07-03-2024 Blood urea nitrogen (BUN)/creatinine ratio 8.2 RATIO Low 10-20 [facility] CBC W/Diff, Automatedon 06-05 Absolute Lymph 1.36 X10 3/uL Normal 0.83-4.51 [facility] Comment on above: Performed By: #### L 300.3900, L100.0100, L300.4310, L503.6620, L501.4020, L500.2500 ####[facility] [address] [place], [address] Absolute Neut 6.5 X10 3/uL Normal 2.0-7.7 [facility] Comment on above: Performed By: #### L 300.3900, L100.0100, L300.4310, L503.6620, L501.4020, L500.2500 ####[facility] [address] [place], [address] Basophils/100 WBC (Bld) 0.5 % Normal 0-1 [facility] Comment on above: Performed By: #### L 300.3900, L100.0100, L300.4310, L503.6620, L501.4020, L500.2500 ####[facility] [address] [place], [address] Eosinophils/100 WBC (Bld) 3.3 % Normal 0-5 [facility] Comment on above: Performed By: #### L 300.3900, L100.0100, L300.4310, L503.6620, L501.4020, L500.2500 ####[facility] [address] [place], [address] Erythrocyte distribution width (RBC) [Ratio] 13.2 % Normal 11.6-14.6 [facility] Comment on above: Performed By: #### L 300.3900, L100.0100, L300.4310, L503.6620, L501.4020, L500.2500 ####[facility] [address] [place], [address] Hematocrit (Bld) [Volume fraction] 35.4 % Low 37-47 [facility] Comment on above: Performed By: #### L 300.3900, L100.0100, L300.4310, L503.6620, L501.4020, L500.2500 ####[facility] [address] [place], [address] Hemoglobin (Bld) [Mass/Vol] 11.3 g/dL Low 12.0-15.0 [facility] Comment on above: Performed By: #### L 300.3900, L100.0100, L300.4310, L503.6620, L501.4020, L500.2500 ####[facility] [address] [place], [address] IG% 0.200 Normal 0.0-0.9 [facility] Comment on above: Result Comment: IG% - Immature Granulocytes (promyelocytes, myelocytes andmetamyelocytes) > 1% indicates that a LEFT SHIFT is Present. Performed By: #### L 300.3900, L100.0100, L300.4310, L503.6620, L501.4020, L500.2500 ####[facility] [address] [place], [address] Lymphocytes/100 WBC (Bld) 14.9 % Low 19-41 [facility] Comment on above: Performed By: #### L 300.3900, L100.0100, L300.4310, L503.6620, L501.4020, L500.2500 ####[facility] [address] [place], [address] MCH (RBC) [Entitic mass] 30.1 pg Normal 27.0-32.0 [facility] Comment on above: Performed By: #### L 300.3900, L100.0100, L300.4310, L503.6620, L501.4020, L500.2500 ####[facility] [address] [place], [address] MCHC (RBC) [Mass/Vol] 31.9 g/dL Low 32-36 [facility] Comment on above: Performed By: #### L 300.3900, L100.0100, L300.4310, L503.6620, L501.4020, L500.2500 ####[facility] [address] [place], [address] MCV (RBC) [Entitic vol] 94.4 fL Normal 81-99 [facility] Comment on above: Performed By: #### L 300.3900, L100.0100, L300.4310, L503.6620, L501.4020, L500.2500 ####[facility] [address] [place], [address] Monocytes/100 WBC (Bld) 10.6 % High 0-10 [facility] Comment on above: Performed By: #### L 300.3900, L100.0100, L300.4310, L503.6620, L501.4020, L500.2500 ####[facility] [address] [place], [address] Neutrophils/100 WBC (Bld) 70.5 % High 47-70 [facility] Comment on above: Performed By: #### L 300.3900, L100.0100, L300.4310, L503.6620, L501.4020, L500.2500 ####[facility] [address] [place], [address] Nucleated RBC (Bld) [#/Vol] 0 10*3/uL Normal 0-5 [facility] Comment on above: Performed By: #### L 300.3900, L100.0100, L300.4310, L503.6620, L501.4020, L500.2500 ####[facility] [address] [place], [address] Platelet mean volume (Bld) [Entitic vol] 10.4 fL Normal 6.2-12.0 [facility] Comment on above: Performed By: #### L 300.3900, L100.0100, L300.4310, L503.6620, L501.4020, L500.2500 ####[facility] [address] [place], [address] Platelets (Bld) [#/Vol] 219 10*3/uL Normal 150-450 [facility] Comment on above: Performed By: #### L 300.3900, L100.0100, L300.4310, L503.6620, L501.4020, L500.2500 ####[facility] [address] [place], [address] RBC (Bld) [#/Vol] 3.75 10*6/uL Low 4.2-5.4 [facility] Comment on above: Performed By: #### L 300.3900, L100.0100, L300.4310, L503.6620, L501.4020, L500.2500 ####[facility] [address] [place], [address] RDW SD 45.1 fl High 35.1-43.9 [facility] Comment on above: Performed By: #### L 300.3900, L100.0100, L300.4310, L503.6620, L501.4020, L500.2500 ####[facility] [address] [place], [address] WBC (Bld) [#/Vol] 9.2 10*3/uL Normal 4.4-11.0 [facility] Comment on above: Performed By: #### L 300.3900, L100.0100, L300.4310, L503.6620, L501.4020, L500.2500 ####[facility] [address] [place], [address] Calcium [Mass/Vol]Ordered By : Livan Murry on 07-03-2024 Serum or plasma calcium measurement (mass/volume) 8.5 mg/dL 8.5-10.1 [facility] Carbon dioxide measurementOr dered By: Livan Murry on 07-03-2024 Carbon dioxide measurement 33.0 mmol/L High 21.0-32.0 [facility] Chest PA and Lateralon 07-03 Chest PA and Lateral Normal [facility] Chloride measurementOrdered By: Livan Murry on 07-03-2024 Chloride measurement 98 mmol/L 98-107 [facility] Clarity (U)Ordered By: Livan Murry on 07-03-2024 Urine clarity Clear Clear [facility] Color (U)Ordered By: Livan banerjee on 07-03-2024 Urine color determination Yellow Yellow [facility] Creatinine [Mass/Vol]Ordered By: Livan Murry on 07-03-2024 Serum or plasma creatinine measurement (mass/volume) 1.96 mg/dL High 0.55-1.02 [facility] Emergency Department Summary on 07-03-2024 Emergency Department Summary Normal [facility] Eosinophil percentageOrdered By: Livan Murry on 07-03-2024 Eosinophil percentage 3.3 % 0-5 [facility] Erythrocyte distribution wid th (RBC) [Entitic vol]Ordered By: Livan Murry on 07-03-2024 Erythrocyte distribution width standard deviation 45.1 fl High 35.1-43.9 [facility] Erythrocyte distribution wid th (RBC) [Ratio]Ordered By: Livan Murry on 07-03-2024 Erythrocyte distribution width ratio 13.2 % 11.6-14.6 [facility] Estimated glomerular filtrat ion rate (GFR) AmericanOrdered By: Livan Murry on 07-03-2024 Estimated glomerular filtration rate (GFR) 33 mL/min Low >60 [facility] Glomerular filtration rate ( GFR) estimationOrdered By: Livan Murry on 07-03-2024 Glomerular filtration rate (GFR) estimation 27 mL/min Low >60 [facility] Glucose measurementOrdered B y: Livan Murry on 07-03-2024 Glucose measurement 96 mg/dL 74-106 [facility] Hematocrit Auto (Bld) [Volum e fraction]Ordered By: Livan Murry on 07-03-2024 Automated blood hematocrit (percentage) 35.4 % Low 37-47 [facility] Hemoglobin measurementOrdere d By: Livan Murry on 07-03-2024 Hemoglobin measurement 11.3 g/dL Low 12.0-15.[address] [facility] Immature granulocytes/100 WB C Auto (Bld)Ordered By: Livan Murry on 07-03-2024 Automated immature granulocyte percentage 0.200 % 0.0-0.9 [facility] International normalized rat io (INR) calculationOrdered By: Livan Murry on 07-03-2024 International normalized ratio (INR) calculation 1.0 [facility] L501.4020on 07-03-2024 TROPONIN-I HS 19 pg/mL Normal 3.0-54.0 [facility] Comment on above: Order Comment: 'TROP ' Serial specimen #1, #2 or #3: 1 Result Comment: Louisa chavarria Note: New Test Units and Gender Specific Reference Ranges. For more information see Policy Stat Procedure [place]erson High Sensitivity Troponin (TNIH) and attachments. Performed By: #### L 300.3900, L100.0100, L300.4310, L503.6620, L501.4020, L500.2500 ####[facility] [address] [place], [address] Lymphocytes Auto (Unsp spec) [#/Vol]Ordered By: Livan Murry on 07-03-2024 Absolute lymphocyte count 1.36 X10^3/uL 0.83-4.51 [facility] Lymphocytes/100 WBC Auto (Un sp spec)Ordered By: Livan Murry on 07-03-2024 Automated lymphocyte count as percentage of total leukocytes 14.9 % Low 19-41 [facility] M100.678on 07-03-2024 M100.678 Pending SARS-CoV-2 (COVID 19) Negative INFLUENZA A Negative INFLUENZA B Negative RSV PCR Negative Normal [facility] Comment on above: Performed By: #### L 400.0001, M100.678 ####[facility] [address] [place], [place], [address] MCV (RBC) [Entitic vol]Order ed By: Livan Murry on 07-03-2024 MCV (mean corpuscular volume) determination 94.4 fL 81-99 [facility] Mean corpuscular hemoglobin (MCH) determinationOrdered By: Livan Murry on 07-03-2024 Mean corpuscular hemoglobin (MCH) determination 30.1 pg 27.0-32.0 [facility] Mean corpuscular hemoglobin concentration (MCHC) determinationOrdered By: Livan Murry on 07-03-2024 Mean corpuscular hemoglobin concentration (MCHC) determination 31.9 g/dL Low 32-36 [facility] Mean platelet volume determi nationOrdered By: Livan Murry on 07-03-2024 Mean platelet volume determination 10.4 fl 6.2-12.0 [facility] Monocyte percentageOrdered B y: Livan Murry on 07-03-2024 Monocyte percentage 10.6 % High 0-10 [facility] Mucus LM Ql (Urine sed)Order ed By: Livan Murry on 07-03-2024 Mucus detection in urine sediment by light microscopy 0 SEEN /hpf [facility] Neutrophil percentageOrdered By: Livan Murry on 07-03-2024 Neutrophil percentage 70.5 % High 47-70 [facility] Nucleated red blood cell per centageOrdered By: Livan Murry on 07-03-2024 Nucleated red blood cell percentage 0 % 0-5 [facility] Partial Thromboplast Timeon 07-03-2024 aPTT Coag (Bld) [Time] 25.6 s Normal 24.1-36.[address] [facility] Comment on above: Performed By: #### L 300.3900, L100.0100, L300.4310, L503.6620, L501.4020, L500.2500 ####[facility] [address] [place], [place], [id number] Platelet countOrdered By: Jose Murry on 07-03-2024 Platelet count 219 K/mm3 150-450 [facility] Potassium measurementOrdered By: Livan Murry on 07-03-2024 Potassium measurement 3.2 mmol/L Low 3.5-5.1 [facility] Protein Test strip Ql (U)Ord ered By: Livan Murry on 07-03-2024 Urine protein assay by test strip, semi-quantitative 100 mg/dl High Negative [facility] Prothrombin Time w/INRon INR Coag (PPP) [Relative time] 1.0 {INR} Normal [facility] Comment on above: Performed By: #### L 300.3900, L100.0100, L300.4310, L503.6620, L501.4020, L500.2500 ####[facility] [address] [place], [address] PT Coag (PPP) [Time] 13.1 s Normal 11.7-14.9 [facility] Comment on above: Performed By: #### L 300.3900, L100.0100, L300.4310, L503.6620, L501.4020, L500.2500 ####[facility] [address] [place], [address] Prothrombin timeOrdered By: Livan Murry on 07-03-2024 Prothrombin time 13.1 SECONDS 11.7-14.9 [facility] RBC Auto (Bld) [#/Vol]Ordere d By: Livan Murry on 07-03-2024 Automated blood erythrocyte count 3.75 M/mm3 Low 4.2-5.4 [facility] Serum anion gap measurementO rdered By: Livan Murry on 07-03-2024 Serum anion gap measurement 6 5-15 [facility] Sodium levelOrdered By: Livan Murry on 07-03-2024 Sodium level 137 mmol/L 136-145 [facility] Specific gravity (U) [Rel de nsity]Ordered By: Livan Murry on 07-03-2024 Urine specific gravity measurement 1.005 1.002-1.030 [facility] Troponin IOrdered By: Livan castillo on 07-03-2024 Troponin I 19 pg/mL 3.0-54.0 [facility] Urea nitrogen [Mass/Vol]Orde red By: Livan Murry on 07-03-2024 Serum or plasma urea nitrogen measurement (mass/volume) 16 mg/dL 7-18 [facility] Urinalysis, Completeon 07-03 BACTERIA 1+ /hpf Normal None Seen [facility] Comment on above: Order Comment: CLEAN CATCH Performed By: #### L 400.0001, M100.678 ####[facility] [address] [place], [address] EPI,SQUAMOUS 0-5 SEEN Normal 5-10 [facility] Comment on above: Order Comment: CLEAN CATCH Performed By: #### L 400.0001, M100.678 ####[facility] [address] [place], [address] RBC 0-5 SEEN Normal 0-5 [facility] Comment on above: Order Comment: CLEAN CATCH Performed By: #### L 400.0001, M100.678 ####[facility] [address] [place], [address] WBC 0-5 SEEN Normal 0-5 [facility] Comment on above: Order Comment: CLEAN CATCH Performed By: #### L 400.0001, M100.678 ####[facility] [address] [place], [address] Mucus Ql (Urine sed) 0 SEEN Normal [facility] Comment on above: Order Comment: CLEAN CATCH Performed By: #### L 400.0001, M100.678 ####[facility] [address] [place], [address] Urine blood detectionOrdered By: Livan Murry on 07-03-2024 Urine blood detection 150 /ul High Negative [facility] Urine glucose detectionOrder ed By: Livan Murry on 07-03-2024 Urine glucose detection Normal mg/dl Normal [facility] Urine total bilirubin detect ion by test stripOrdered By: Livan Murry on 07-03-2024 Urine total bilirubin detection by test strip Negative Negative [facility] White blood cell (WBC) count Ordered By: Livan Murry on 07-03-2024 White blood cell (WBC) count 9.2 K/mm3 4.4-11.0 [facility] White blood cell countOrdere d By: Livan Murry on 07-03-2024 White blood cell count 0-5 SEEN /hpf 5-10 [facility] aPTT Coag (PPP) [Time]Ordere d By: Livan Murry on 07-03-2024 Activated partial thromboplastin time (aPTT) in platelet poor plasma by coagulation a 25.6 Seconds 24.1-36.2 [facility] pH (U)Ordered By: Livan mclaughlin on 07-03-2024 Urine pH 7.0 5.0 - 8.0 [facility] Surgery Visit Reporton 06-19 [facility] Visit Report [facility]-07-[facility] CNOV Office Visit (PULMWS ) SNEHA CARDENAS ([id number]) 1955 F Date Time Provider Department 06/07/24 1:45 PM MAGALI NIEVES PULMWS During your visit today, we recorded the following information about you: Pulse Respiration Blood pressure Weight 95/minute 17/minute 128/62 67.1 kg Magali Nieves MD 06/07/2024 3:35 PM Signed . Respiratory [place] Note Patient name: Sneha Cardenas PCP: Julio Draper MD CC: Follow up COPD HPI: Sneha Cardenas 69 year old female former 20 pack year smoker with PMH significant for tremors, HTN, COVID PNA 2020, chronic hypoxemic respiratory failure, AF (not anticoagulated due to GIB), severe COPD/emphysema, multiple nodules on chest imaging and 2 cm RUL GGO, history notable for complicated parapneumonic effusion requiring chest tube, EARNEST/ATN and now ESRD requiring dialysis. Current therapy with Trelegy Ellipta. Presents for follow-up her recent chest CT. Having trouble with cramping with dialysis. She is somewhat disheartened by her slow recovery as it has been almost a year since her illness. From a pulmonary standpoint she has dyspnea on exertion. No chronic cough or sputum production. No chest pain. No wheezing. She does note increased shortness of breath on dialysis and when her dialysis schedule was changed for the holiday week. She has been trying to wean her oxygen down. She is currently using 2 L. Self monitored SpO2's ranging in the mid 90s. She was asking about possible [place]idan valve for her COPD. DATA: Imaging / Diagnostic Studies: DATE OF EXAM: May 10 2024 1:23PM [facility] 0541 - CT CHEST WO IVCON / PROCEDURE REASON: Lung nodules CLINICAL HISTORY: Lung nodules Comparison: 11/03/2023 and 05/25/2023 CT RESULT: Limitations: None. Lines, tubes, and devices: Central venous catheter in place. Lung parenchyma and airways: Linear indeterminate density at both lung bases is likely atelectasis or fibrosis. Right lung groundglass opacity of 2.1 x 1.2 cm on image 108 is stable. 0.8 cm nodule within the right lung on image 43 is stable. Left lung subpleural nodule of 0.7 cm on image 36 is stable Stable 5 mm left lung nodule on image 57. Stable 4 mm left lower lobe nodule on image 146.. Several calcified granulomata The central airways are patent. Pleural space: Trace right pleural effusion Lower neck, lymph nodes, and mediastinum: The imaged thyroid gland is normal. No lymphadenopathy in the supraclavicular, axillary, mediastinal, or hilar regions. Heart, pericardium, and thoracic vessels: The thoracic aorta and main pulmonary artery are normal in caliber. The cardiac chambers are normal in size. Mild coronary artery atherosclerotic calcifications are noted, although the study is not optimized for coronary assessment. No pericardial effusion or thickening. Bones and soft tissues: No destructive bone lesion. Chest wall is unremarkable. Upper abdomen: No abnormality in the imaged upper abdomen. Localizer images: No additional findings. IMPRESSION: Stable pulmonary nodules and groundglass opacities. No new mass or adenopathy Continued follow-up in [address] 11/2023: Chest CT 07/2023: PAST MEDICAL HISTORY Diagnosis Date Age-related osteoporosis without current pathological fracture 08/28/2021 EARNEST (acute kidney injury) ([facility]) EARNEST (acute kidney injury) ([facility]) Anemia requiring transfusions 06/15/2023 Antibiotic-associated diarrhea 07/14/2023 Asthma Benign essential tremor Chronic obstructive pulmonary disease ([facility]) 07/25/2012 Chronic respiratory failure with hypoxia ([facility]) 11/05/2022 Coagulation defect, unspecified ([facility]) 08/25/2023 COPD (chronic obstructive pulmonary disease) ([facility]) 07/25/2012 FEV1 0.84L (32%), 10/18/2014 Coronary artery disease 08/19/2023 DDD (degenerative disc disease), cervical 08/15/2015 Empyema ([facility]) 07/09/2023 Environmental allergies Wheezes with hay or dust ESRD (end stage renal disease) ([facility]) Essential and other specified forms of tremor 11/02/2007 Benign essential -- started primidone 06/03/09, Dr. Nguyễn Essential tremor 11/02/2007 Benign essential -- started primidone 06/03/09, Dr. Nguyễn Gastrointestinal hemorrhage associated with peptic ulcer 08/02/2023 Hemodialysis catheter malfunction ([facility]) 08/19/2023 History of colon polyps 2010 Tubular adenoma. Hypertension Hypoxemia 05/01/2021 Post Covid pneumonia. Irritable bowel syndrome Lung nodule Migraine headache Improved with primidone Multiple duodenal ulcers 06/30/2023 NSTEMI (non-ST elevated myocardial infarction) ([facility]) 07/20/2023 Parapneumonic effusion Pneumonia due to COVID-19 virus 05/01/2021 Pneumonia due to infectious organism 06/30/2023 Pulmonary emphysema ([facility]) 07/19/2023 Scoliosis Shock, septic ([facility]) 07/11/2023 Snoring Tobacco use disorder (more content not included)... Normal [facility] Discharge Instructionon 12-0 Discharge Instruction Normal [facility] Humerus min 2 Viewson 2023 Humerus min 2 Views Normal [facility] MR/POSTOP.ANEon 06-05-2024 MR/POSTOP.ANE Normal [facility] MR/[id number] 06-05-2024 MR/POSTOPAN2 Normal [facility] Operative Reporton Operative Report Normal [facility] Basic Metabolic Profile (BMP )on 05-24-2024 BUN/CRE 7.1 RATIO Low 10-20 [facility] Comment on above: Performed By: #### L 100.0500, L500.2500 ####[facility] [address] [place], [address] CA,Total 9.3 mg/dL Normal 8.5-10.1 [facility] Comment on above: Performed By: #### L 100.0500, L500.2500 ####[facility] [address] [place], [address] Chloride [Moles/Vol] 103 mmol/L Normal 98-107 [facility] Comment on above: Performed By: #### L 100.0500, L500.2500 ####[facility] [address] [place], [address] CO2 [Moles/Vol] 27.0 mmol/L Normal 21.0-32.0 [facility] Comment on above: Performed By: #### L 100.0500, L500.2500 ####[facility] [address] [place], [address] Creatinine [Mass/Vol] 3.78 mg/dL High 0.55-1.02 [facility] Comment on above: Result Comment: The validity of the calculated GFR GFRAA in patients over70 years has not been determined. Clinical correlation isessential. Performed By: #### L 100.0500, L500.2500 ####[facility] [address] [place], [address] EST GFR - AA 15 mL/min Low >60 [facility] Comment on above: Result Comment: Afri can Micronesian GFR Calc Performed By: #### L 100.0500, L500.2500 ####[facility] [address] [place], [address] GAP 8 Normal 5-15 [facility] Comment on above: Performed By: #### L 100.0500, L500.2500 ####[facility] [address] [place], [address] GFR/1.73 sq M.predicted among non-blacks MDRD (S/P/Bld) [Vol rate/Area] 13 mL/min/{1.73_m2} Low >60 [facility] Comment on above: Result Comment: Non- GFR Calc Performed By: #### L 100.0500, L500.2500 ####[facility] [address] [place], [address] Glucose [Mass/Vol] 88 mg/dL Normal 74-106 [facility] Comment on above: Performed By: #### L 100.0500, L500.2500 ####[facility] [address] [place], [address] Potassium [Moles/Vol] 4.4 mmol/L Normal 3.5-5.1 [facility] Comment on above: Performed By: #### L 100.0500, L500.2500 ####[facility] [address] [place], [address] Sodium [Moles/Vol] 138 mmol/L Normal 136-145 [facility] Comment on above: Performed By: #### L 100.0500, L500.2500 ####[facility] [address] [place], [address] Urea nitrogen [Mass/Vol] 27 mg/dL High 7-18 [facility] Comment on above: Performed By: #### L 100.0500, L500.2500 ####[facility] [address] [place], [address] Blood urea nitrogen (BUN)/cr eatinine ratioOrdered By: Livan Love on 05-24-2024 Blood urea nitrogen (BUN)/creatinine ratio 7.1 RATIO Low 10-20 [facility] CBC-Complete Blood Cnt No Di ffon 05-24-2024 Erythrocyte distribution width (RBC) [Ratio] 13.2 % Normal 11.6-14.6 [facility] Comment on above: Performed By: #### L 100.0500, L500.2500 ####[facility] [address] [place], [address] Hematocrit (Bld) [Volume fraction] 36.4 % Low 37-47 [facility] Comment on above: Performed By: #### L 100.0500, L500.2500 ####[facility] [address] [place], [address] Hemoglobin (Bld) [Mass/Vol] 11.3 g/dL Low 12.0-15.0 [facility] Comment on above: Performed By: #### L 100.0500, L500.2500 ####[facility] [address] [place], [address] MCH (RBC) [Entitic mass] 30.0 pg Normal 27.0-32.0 [facility] Comment on above: Performed By: #### L 100.0500, L500.2500 ####[facility] [address] [place], [address] MCHC (RBC) [Mass/Vol] 31.0 g/dL Low 32-36 [facility] Comment on above: Performed By: #### L 100.0500, L500.2500 ####[facility] [address] [place], [address] MCV (RBC) [Entitic vol] 96.6 fL Normal 81-99 [facility] Comment on above: Performed By: #### L 100.0500, L500.2500 ####[facility] [address] [place], [address] Platelet mean volume (Bld) [Entitic vol] 9.6 fL Normal 6.2-12.0 [facility] Comment on above: Performed By: #### L 100.0500, L500.2500 ####[facility] [address] [place], [address] Platelets (Bld) [#/Vol] 297 10*3/uL Normal 150-450 [facility] Comment on above: Performed By: #### L 100.0500, L500.2500 ####[facility] [address] [place], [address] RBC (Bld) [#/Vol] 3.77 10*6/uL Low 4.2-5.4 [facility] Comment on above: Performed By: #### L 100.0500, L500.2500 ####[facility] [address] [place], [address] RDW SD 46.7 fl High 35.1-43.9 [facility] Comment on above: Performed By: #### L 100.0500, L500.2500 ####[facility] [address] [place], [address] WBC (Bld) [#/Vol] 8.5 10*3/uL Normal 4.4-11.0 [facility] Comment on above: Performed By: #### L 100.0500, L500.2500 ####[facility] [address] [place], [address] Calcium [Mass/Vol]Ordered By : Livan Love on 05-24-2024 Serum or plasma calcium measurement (mass/volume) 9.3 mg/dL 8.5-10.1 [facility] Carbon dioxide measurementOr dered By: Livan Love on 05-24-2024 Carbon dioxide measurement 27.0 mmol/L 21.0-32.0 [facility] Chloride measurementOrdered By: Livan Love on 05-24-2024 Chloride measurement 103 mmol/L 98-107 [facility] Creatinine [Mass/Vol]Ordered By: Livan Love on 05-24-2024 Serum or plasma creatinine measurement (mass/volume) 3.78 mg/dL High 0.55-1.02 [facility] Erythrocyte distribution wid th (RBC) [Entitic vol]Ordered By: Livansofia Love on 05-24-2024 Erythrocyte distribution width standard deviation 46.7 fl High 35.1-43.9 [facility] Erythrocyte distribution wid th (RBC) [Ratio]Ordered By: Livan Love on 05-24-2024 Erythrocyte distribution width ratio 13.2 % 11.6-14.6 [facility] Estimated glomerular filtrat ion rate (GFR) AmericanOrdered By: Livan Love on 05-24-2024 Estimated glomerular filtration rate (GFR) 15 mL/min Low >60 [facility] Glomerular filtration rate ( GFR) estimationOrdered By: Livan Love on 05-24-2024 Glomerular filtration rate (GFR) estimation 13 mL/min Low >60 [facility] Glucose measurementOrdered B y: Livan Love on 05-24-2024 Glucose measurement 88 mg/dL 74-106 [facility] Hematocrit Auto (Bld) [Volum e fraction]Ordered By: Livan Love on 05-24-2024 Automated blood hematocrit (percentage) 36.4 % Low 37-47 [facility] Hemoglobin measurementOrdere d By: Livan Love on 05-24-2024 Hemoglobin measurement 11.3 g/dL Low 12.0-15.[address] [facility] MCV (RBC) [Entitic vol]Order ed By: Livan Love on 05-24-2024 MCV (mean corpuscular volume) determination 96.6 fL 81-99 [facility] Mean corpuscular hemoglobin (MCH) determinationOrdered By: Livan Love on 05-24-2024 Mean corpuscular hemoglobin (MCH) determination 30.0 pg 27.0-32.0 [facility] Mean corpuscular hemoglobin concentration (MCHC) determinationOrdered By: Livan Love on 05-24-2024 Mean corpuscular hemoglobin concentration (MCHC) determination 31.0 g/dL Low 32-36 [facility] Mean platelet volume determi nationOrdered By: Livan Love on 05-24-2024 Mean platelet volume determination 9.6 fl 6.2-12.0 [facility] Platelet countOrdered By: Jose Love on 05-24-2024 Platelet count 297 K/mm3 150-450 [facility] Potassium measurementOrdered By: Livan Love on 05-24-2024 Potassium measurement 4.4 mmol/L 3.5-5.1 [facility] RBC Auto (Bld) [#/Vol]Ordere d By: Livan Love on 05-24-2024 Automated blood erythrocyte count 3.77 M/mm3 Low 4.2-5.4 [facility] Serum anion gap measurementO rdered By: Livan Love on 05-24-2024 Serum anion gap measurement 8 5-15 [facility] Sodium levelOrdered By: Livan Love on 05-24-2024 Sodium level 138 mmol/L 136-145 [facility] Surgery Visit Reporton 05-24 Surgery Visit Report Normal [facility] Urea nitrogen [Mass/Vol]Orde red By: Livan Sinclairey on 05-24-2024 Serum or plasma urea nitrogen measurement (mass/volume) 27 mg/dL High 7-18 [facility] White blood cell (WBC) count Ordered By: Livan Love on 05-24-2024 White blood cell (WBC) count 8.5 K/mm3 4.4-11.0 [facility] CNOVon 05-15-2024 CNOV Office Visit (INTMWS ) SNEHA CARDENAS ([id number]) 1955 F Date Time Provider Department 05/15/24 10:00 AM JULIO DRAPER INTMWS During your visit today, we recorded the following information about you: Temperature Pulse Respiration Blood pressure 98.1 degrees 94/minute 18/minute 140/62 Weight 66 kg Magali Casey MA 05/15/2024 9:58 AM Signed Julio Draper MD 05/16/2024 12:46 AM Signed This note was created using [employer]. Subjective Patient presents with: Recheck: 6 months Sneha Hendersonkler is a 69 year old female here with Cash for follow up. Her main concern was severe muscle cramping after dialysis She had been to the ER for this and prescribed valium, which she finished taking sparingly. Cramps were mainly in the upper arms and she had Cash massage her arms for relief, in addition to acetaminophen. Review of Systems Constitutional: Negative for fever. Respiratory: Positive for shortness of breath. Cardiovascular: Negative for chest pain and leg swelling. Musculoskeletal: Positive for myalgias. Negative for arthralgias. Neurological: Negative for weakness and numbness. ACTIVE PROBLEM LIST Essential Tremor Environmental Allergies Chronic Obstructive Pulmonary Disease (Hcc) Primary Hypertension Hyperlipidemia Age-Related Osteoporosis Without Current Pathological Fracture Lung Nodule Chronic Respiratory Failure With Hypoxia (Hcc) Duodenal Ulcer Paroxysmal Atrial Fibrillation (Hcc) Anemia Requiring Transfusions Dysphagia Former Smoker Nstemi (Non-St Elevated Myocardial Infarction) (Hcc) Pleural Effusion Malnutrition of Mild Degree (Hcc) Esrd (End Stage Renal Disease) (Hcc) Coronary Artery Disease Anxiety About Health Social History Tobacco Use Smoking status: Former Current packs/day: 0.00 Average packs/day: 0.5 packs/day for 42.0 years (21.0 ttl pk-yrs) Types: Cigarettes Start date: 1974 Quit date: 05/23/2016 Years since quittin.9 Smokeless tobacco: Never Tobacco comments: Resumed short period. Quit for good 05/2016. Vaping Use Vaping status: Never Used Substance Use Topics Alcohol use: No Drug use: No Current Outpatient Medications Medication Sig atorvastatin (LIPITOR) 40 mg tablet Take 1 tablet by mouth daily at bedtime. For cholesterol. montelukast (SINGULAIR) 10 mg tablet Take 1 tablet by mouth daily at bedtime. pantoprazole DR (PROTONIX) 40 mg tablet Take 1 tablet by mouth two times a day before meals. isosorbide mononitrate ER (IMDUR) 60 mg 24 hr tablet Take 1 tablet by mouth once daily. busPIRone (BUSPAR) 10 mg tablet Take 1 tablet by mouth two times a day. sucralfate (CARAFATE) 1 gram tablet TAKE 1 TABLET BY MOUTH THREE TIMES DAILY at 7 AM, 11 AM and 4 pm rewpjgmjok-obnpghtv-kn rmoterol (BREZTRI) 160-9-4.8 mcg/actuation HFA aerosol inhaler Inhale 2 Puffs as instructed two times a day. fluticasone (FLONASE) 50 mcg/actuation nasal spray Use 2 Sprays in each nostril once daily. Rinse mouth after use. ondansetron orally disintegrating (ZOFRAN ODT) 4 mg disintegrating tablet Take 1 tablet by mouth every 8 hours as needed for nausea/vomiting. OXYGEN, HOME THERAPY, Inhale 3 L/min as instructed as directed. 3L NC continuous, up to 4L with exertion acetaminophen (TYLENOL) 325 mg tablet Take 650 mg by mouth every 6 hours as needed. nitroglycerin sublingual (NITROSTAT) 0.4 mg SL tablet Dissolve 0.4 mg under the tongue every 5 minutes as needed for chest pain. polyethylene glycol 3350 (MIRALAX) 17 gram/dose powder Take 17 g by mouth as needed for constipation. Dissolve dose in 4 - 8 ounces of liquid and take as directed. albuterol HFA (PROAIR HFA) 90 mcg/actuation inhaler Inhale 2 Puffs as instructed every 4 hours as needed for wheezing/shortness of breath. ipratropium-albuterol (DUONEB) 0.5 mg-3 mg(2.5 mg base)/3 mL nebu Inhale 3 mL as instructed every 4 hours as needed for wheezing/shortness of breath. (Patient taking differently: Inhale 3 mL as instructed every 6 hours as needed for wheezing/shortness of breath.) predniSONE (DELTASONE) 20 mg tablet Take two daily for 5 days. diazePAM (VALIUM) 2 mg tablet Take 2 mg by mouth every 8 hours as needed. No current facility-administered medications for this visit. Objective BP 140/62 Pulse 94 Temp 36.7 ?C (98.1 ?F) (Temporal) Resp 18 Wt 66 kg (145 lb 8.1 oz) SpO2 94% BMI 25.37 kg/m? Physical Exam Constitutional: General: She is not in acute distress. Appearance: She is not ill-appearing or diaphoretic. HENT: Head: Normocephalic. Cardiovascular: Rate and Rhythm: Normal rate and regular rhythm. Heart sounds: No murmur heard. No gallop. Pulmonary: Effort: Pulmonary effort is normal. Breath sounds: Normal breath sounds. Musculoskeletal: General: No tenderness. Right lower leg: No edema. Left lower leg: No edema. (more content not included)... Normal [facility] CT CHEST WO IVCONon 05-10-20 CT CHEST WO IVCON * * *Final Report* * * DATE OF EXAM: May 10 2024 1:23PM [facility] 0541 - CT CHEST WO IVCON / PROCEDURE REASON: Lung nodules * * * * Physician Interpretation * * * * EXAMINATION: CHEST CT WITHOUT CONTRAST CLINICAL HISTORY: Lung nodules Technique: Spiral CT acquisition of the chest from the thoracic inlet to the upper abdomen without contrast. : [id number] CT Radiation dose: Integrated Dose-length product (DLP) for this visit = 237 mGy*cm CT Dose Reduction Employed: Automated exposure control(AEC) and iterative recon Comparison: 11/03/2023 and 05/25/2023 CT RESULT: Limitations: None. Lines, tubes, and devices: Central venous catheter in place. Lung parenchyma and airways: Linear indeterminate density at both lung bases is likely atelectasis or fibrosis. Right lung groundglass opacity of 2.1 x 1.2 cm on image 108 is stable. 0.8 cm nodule within the right lung on image 43 is stable. Left lung subpleural nodule of 0.7 cm on image 36 is stable Stable 5 mm left lung nodule on image 57. Stable 4 mm left lower lobe nodule on image 146.. Several calcified granulomata . The central airways are patent. Pleural space: Trace right pleural effusion Lower neck, lymph nodes, and mediastinum: The imaged thyroid gland is normal. No lymphadenopathy in the supraclavicular, axillary, mediastinal, or hilar regions. Heart, pericardium, and thoracic vessels: The thoracic aorta and main pulmonary artery are normal in caliber. The cardiac chambers are normal in size. Mild coronary artery atherosclerotic calcifications are noted, although the study is not optimized for coronary assessment. No pericardial effusion or thickening. Bones and soft tissues: No destructive bone lesion. Chest wall is unremarkable. Upper abdomen: No abnormality in the imaged upper abdomen. Localizer images: No additional findings. IMPRESSION: Stable pulmonary nodules and groundglass opacities. No new mass or adenopathy Continued follow-up in 6 months recommended. Director Of Vocational Training: JING Transcribe Date/Time: May 16 2024 2:04P Dictated by : LU JAMESON MD This examination was interpreted and the report reviewed and electronically signed by: LU JAMESON MD on May 16 2024 2:17PM EST [id number] Normal [facility] Gastroenterology Visit Repor ton 05-01-2024 Gastroenterology Visit Report Normal [facility] Cardiology Visit Reporton Cardiology Visit Report Normal [facility] CNPNon 04-16-2024 CNPN Telephone (PULWS) SNEHA CARDENAS ([id number]) 1955 F Date Time Provider Department 04/16/24 MAGALI NIEVES During your visit today, we recorded the following information about you: Annette Gonzalez MA 04/16/2024 11:26 AM Signed Pt calling to report that she has been very short of breath x 1 week. ER last Tuesday at [facility] with spasms due to dialysis. She checked out ok. Today she had to do a breathing treatment and then dialysis. Dialysis did not help with the crackling in her chest or SOB. Please review and advise. Annette Gonzalez MA Allergies As of Date: 04/16/2024 Noted Allergy Reaction KEFLEX (CEPHALEXIN) 10/04/2005 5 - Intolerance Comments: Tachycardia, palpitations. Date Reviewed: 04/12/2024 Reviewed by: Anushka Alexis LPN - Fully Assessed Reason for Visit: Patient Update [1234] Breathing Problem [17] Order(s):predniSONE (DELTASONE) 20 mg tabletTake two daily for 5 days.Disp: 10 tabletRfl: 0 Prescriptions as of 04/17/2024 - predniSONE (DELTASONE) 20 mg tablet Take two daily for 5 days. - diazePAM (VALIUM) 2 mg tablet Take 2 mg by mouth every 8 hours as needed. - atorvastatin (LIPITOR) 40 mg tablet Take 1 tablet by mouth daily at bedtime. For cholesterol. - montelukast (SINGULAIR) 10 mg tablet Take 1 tablet by mouth daily at bedtime. - pantoprazole DR (PROTONIX) 40 mg tablet Take 1 tablet by mouth two times a day before meals. - isosorbide mononitrate ER (IMDUR) 60 mg 24 hr tablet Take 1 tablet by mouth once daily. - busPIRone (BUSPAR) 10 mg tablet Take 1 tablet by mouth two times a day. - sucralfate (CARAFATE) 1 gram tablet TAKE 1 TABLET BY MOUTH THREE TIMES DAILY at 7 AM, 11 AM and 4 pm - lnyogmgtos-ejafbjva-dw rmoterol (BREZTRI) 160-9-4.8 mcg/actuation HFA aerosol inhaler Inhale 2 Puffs as instructed two times a day. - fluticasone (FLONASE) 50 mcg/actuation nasal spray Use 2 Sprays in each nostril once daily. Rinse mouth after use. - ondansetron orally disintegrating (ZOFRAN ODT) 4 mg disintegrating tablet Take 1 tablet by mouth every 8 hours as needed for nausea/vomiting. - OXYGEN, HOME THERAPY, Inhale 3 L/min as instructed as directed. 3L NC continuous, up to 4L with exertion - acetaminophen (TYLENOL) 325 mg tablet Take 650 mg by mouth every 6 hours as needed. - nitroglycerin sublingual (NITROSTAT) 0.4 mg SL tablet Dissolve 0.4 mg under the tongue every 5 minutes as needed for chest pain. - polyethylene glycol 3350 (MIRALAX) 17 gram/dose powder Take 17 g by mouth as needed for constipation. Dissolve dose in 4 - 8 ounces of liquid and take as directed. - albuterol HFA (PROAIR HFA) 90 mcg/actuation inhaler Inhale 2 Puffs as instructed every 4 hours as needed for wheezing/shortness of breath. - ipratropium-albuterol (DUONEB) 0.5 mg-3 mg(2.5 mg base)/3 mL nebu Inhale 3 mL as instructed every 4 hours as needed for wheezing/shortness of breath. Problem List As Of Date 04/16/2024 Noted Resolved Tobacco use disorder [F17.200] 11/02/2007 02/10/2017 Essential tremor [G25.0] 11/02/2007 Other specified disorder of gallbladder [K82.8] 12/11/2007 07/20/2012 Unspecified gastritis and gastroduodenitis with*02/09/2010 07/15/2015 Blood in stool [K92.1] 02/09/2010 07/20/2012 Loss of weight [R63.4] 02/09/2010 07/20/2012 Upper GI bleed [K92.2] 02/09/2010 04/12/2024 Acute gastritis without mention of hemorrhage [*02/09/2010 07/20/2012 Essential hypertension, benign [I10] 05/17/2011 07/15/2015 Migraine headache [G43.909] 07/15/2015 Irritable bowel syndrome [K58.9] 07/15/2015 Scoliosis [M41.9] 02/10/2017 Environmental allergies [Z91.09] History of colon polyps [Z86.0100] 07/15/2015 Chronic obstructive pulmonary disease (HCC) [J4*07/25/2012 Cervical disc disorder with radiculopathy [M50.*08/15/2015 02/10/2017 DDD (degenerative disc disease), cervical [M50.*08/15/2015 02/10/2017 Primary hypertension [I10] 06/03/2016 Asthma [J45.909] 02/15/2019 Hyperlipidemia [E78.5] 02/15/2019 Age-related osteoporosis without current pathol*08/28/2021 Hypoxemia [R09.02] 05/01/2021 08/25/2023 Lung nodule [R91.1] 05/12/2021 Elevated blood pressure reading [R03.0] 05/03/2022 08/25/2023 Chronic respiratory failure with hypoxia (HCC) *11/05/2022 Duodenal ulcer [K26.9] 06/30/2023 Paroxysmal atrial fibrillation (HCC) [I48.0] 06/30/2023 Pneumonia due to infectious organism [J18.9] 06/30/2023 04/12/2024 Anemia requiring transfusions [D64.9] 07/01/2023 Acute on chronic hypoxic respiratory failure (H*07/09/2023 08/25/2023 Empyema (HCC) [J86.9] 07/09/2023 08/25/2023 Dysphagia [R13.10] 07/09/2023 Shock, septic (HCC) [A41.9, R65.21] 07/11/2023 08/25/2023 Antibiotic-associated diarrhea [K52.1, T36.95XA]07/14/2023 04/12/2024 Pulmonary emphysema (HCC) [J43.9] 07/19/2023 04/12/2024 Former smoker [Z87.891] 07/19/2023 NSTEMI (non-ST elevated myocardial infarction) *01 (more content not included)... Normal [facility] Telephone (INTMWS) SNEHA CARDENAS ([id number]) 1955 F Date Time Provider Department 04/16/24 JULIO DRAPER INTMWS During your visit today, we recorded the following information about you: Annette Farr LPN 04/16/2024 4:18 PM Signed Pt called concerned she did not hear from her muleser. Pt informed she was just sent a [employer] message with recommendations from Dr. Nieves. Annette Farr LPN Allergies As of Date: 04/16/2024 Noted Allergy Reaction KEFLEX (CEPHALEXIN) 10/04/2005 5 - Intolerance Comments: Tachycardia, palpitations. Date Reviewed: 04/12/2024 Reviewed by: Anushka Alexis LPN - Fully Assessed Reason for Visit: concern with crackling lungs/SOB [Other] Prescriptions as of 04/16/2024 - predniSONE (DELTASONE) 20 mg tablet Take two daily for 5 days. - diazePAM (VALIUM) 2 mg tablet Take 2 mg by mouth every 8 hours as needed. - atorvastatin (LIPITOR) 40 mg tablet Take 1 tablet by mouth daily at bedtime. For cholesterol. - montelukast (SINGULAIR) 10 mg tablet Take 1 tablet by mouth daily at bedtime. - pantoprazole DR (PROTONIX) 40 mg tablet Take 1 tablet by mouth two times a day before meals. - isosorbide mononitrate ER (IMDUR) 60 mg 24 hr tablet Take 1 tablet by mouth once daily. - busPIRone (BUSPAR) 10 mg tablet Take 1 tablet by mouth two times a day. - sucralfate (CARAFATE) 1 gram tablet TAKE 1 TABLET BY MOUTH THREE TIMES DAILY at 7 AM, 11 AM and 4 pm - ywisreoghv-qgusanrg-dt rmoterol (BREZTRI) 160-9-4.8 mcg/actuation HFA aerosol inhaler Inhale 2 Puffs as instructed two times a day. - fluticasone (FLONASE) 50 mcg/actuation nasal spray Use 2 Sprays in each nostril once daily. Rinse mouth after use. - ondansetron orally disintegrating (ZOFRAN ODT) 4 mg disintegrating tablet Take 1 tablet by mouth every 8 hours as needed for nausea/vomiting. - OXYGEN, HOME THERAPY, Inhale 3 L/min as instructed as directed. 3L NC continuous, up to 4L with exertion - acetaminophen (TYLENOL) 325 mg tablet Take 650 mg by mouth every 6 hours as needed. - nitroglycerin sublingual (NITROSTAT) 0.4 mg SL tablet Dissolve 0.4 mg under the tongue every 5 minutes as needed for chest pain. - polyethylene glycol 3350 (MIRALAX) 17 gram/dose powder Take 17 g by mouth as needed for constipation. Dissolve dose in 4 - 8 ounces of liquid and take as directed. - albuterol HFA (PROAIR HFA) 90 mcg/actuation inhaler Inhale 2 Puffs as instructed every 4 hours as needed for wheezing/shortness of breath. - ipratropium-albuterol (DUONEB) 0.5 mg-3 mg(2.5 mg base)/3 mL nebu Inhale 3 mL as instructed every 4 hours as needed for wheezing/shortness of breath. Problem List As Of Date 04/16/2024 Noted Resolved Tobacco use disorder [F17.200] 11/02/2007 02/10/2017 Essential tremor [G25.0] 11/02/2007 Other specified disorder of gallbladder [K82.8] 12/11/2007 07/20/2012 Unspecified gastritis and gastroduodenitis with*02/09/2010 07/15/2015 Blood in stool [K92.1] 02/09/2010 07/20/2012 Loss of weight [R63.4] 02/09/2010 07/20/2012 Upper GI bleed [K92.2] 02/09/2010 04/12/2024 Acute gastritis without mention of hemorrhage [*02/09/2010 07/20/2012 Essential hypertension, benign [I10] 05/17/2011 07/15/2015 Migraine headache [G43.909] 07/15/2015 Irritable bowel syndrome [K58.9] 07/15/2015 Scoliosis [M41.9] 02/10/2017 Environmental allergies [Z91.09] History of colon polyps [Z86.0100] 07/15/2015 Chronic obstructive pulmonary disease (HCC) [J4*07/25/2012 Cervical disc disorder with radiculopathy [M50.*08/15/2015 02/10/2017 DDD (degenerative disc disease), cervical [M50.*08/15/2015 02/10/2017 Primary hypertension [I10] 06/03/2016 Asthma [J45.909] 02/15/2019 Hyperlipidemia [E78.5] 02/15/2019 Age-related osteoporosis without current pathol*08/28/2021 Hypoxemia [R09.02] 05/01/2021 08/25/2023 Lung nodule [R91.1] 05/12/2021 Elevated blood pressure reading [R03.0] 05/03/2022 08/25/2023 Chronic respiratory failure with hypoxia (HCC) *11/05/2022 Duodenal ulcer [K26.9] 06/30/2023 Paroxysmal atrial fibrillation (HCC) [I48.0] 06/30/2023 Pneumonia due to infectious organism [J18.9] 06/30/2023 04/12/2024 Anemia requiring transfusions [D64.9] 07/01/2023 Acute on chronic hypoxic respiratory failure (H*07/09/2023 08/25/2023 Empyema (HCC) [J86.9] 07/09/2023 08/25/2023 Dysphagia [R13.10] 07/09/2023 Shock, septic (HCC) [A41.9, R65.21] 07/11/2023 08/25/2023 Antibiotic-associated diarrhea [K52.1, T36.95XA]07/14/2023 04/12/2024 Pulmonary emphysema (HCC) [J43.9] 07/19/2023 04/12/2024 Former smoker [Z87.891] 07/19/2023 NSTEMI (non-ST elevated myocardial infarction) *07/20/2023 History of GI bleed [Z87.19] 07/20/2023 04/12/2024 EARNEST (acute kidney injury) (HCC) [N17.9] 07/20/2023 08/25/2023 Elevated troponin [R79.89] 07/20/2023 08/25/2023 History of COPD [Z87.09] 07/20/2023 04/12/2024 Pleural effusi (more content not included)... Normal [facility] CNOVon 04-12-2024 CNOV Office Visit (INTMWS ) SNEHA CARDENAS ([id number]) 1955 F Date Time Provider Department 04/12/24 10:20 AM JULIO DRAPER INTMWS During your visit today, we recorded the following information about you: Temperature Pulse Respiration Blood pressure 98.2 degrees 96/minute 18/minute 124/62 Weight 63.4 kg Julio Draper MD 04/12/2024 11:24 AM Signed This note was created using [employer]. Subjective Patient presents with: ER F/U Snehaartemio Cardenas is a 68 year old female who was in the ER 04/09/24 for left arm and chest muscle spasms in the setting of dialysis. She also had spasms of her lower extremities. She's been having issues with dialysis and did not seem to tolerate too much volume with hypotension and cramps. She was also in the ER last month for similar issues. Her metoprolol and amlodipine were discontinued this week, in coordination with her telecommunicator. Dyspnea was worse and will be evaluated by pulmonary. Hopefully dyspnea will improve off beta vincenzo. She was prescribed diazepam, but she preferred to avoid the medication due to sedation. Review of Systems Constitutional: Positive for fatigue. Negative for chills, diaphoresis and fever. Respiratory: Positive for shortness of breath. Negative for cough and wheezing. Cardiovascular: Negative for chest pain, palpitations and leg swelling. Gastrointestinal: Negative for diarrhea, nausea and vomiting. Musculoskeletal: Positive for gait problem and myalgias. Neurological: Positive for weakness. ACTIVE PROBLEM LIST Essential Tremor Environmental Allergies Chronic Obstructive Pulmonary Disease (Hcc) Primary Hypertension Hyperlipidemia Age-Related Osteoporosis Without Current Pathological Fracture Lung Nodule Chronic Respiratory Failure With Hypoxia (Hcc) Duodenal Ulcer Paroxysmal Atrial Fibrillation (Hcc) Anemia Requiring Transfusions Dysphagia Former Smoker Nstemi (Non-St Elevated Myocardial Infarction) (Hcc) Pleural Effusion Malnutrition of Mild Degree (Hcc) Esrd (End Stage Renal Disease) (Hcc) Coronary Artery Disease Anxiety About Health Social History Tobacco Use Smoking status: Former Current packs/day: 0.00 Average packs/day: 0.5 packs/day for 42.0 years (21.0 ttl pk-yrs) Types: Cigarettes Start date: 1974 Quit date: 05/23/2016 Years since quittin.8 Smokeless tobacco: Never Tobacco comments: Resumed short period. Quit for good 05/2016. Vaping Use Vaping status: Never Used Substance Use Topics Alcohol use: No Drug use: No Current Outpatient Medications Medication Sig diazePAM (VALIUM) 2 mg tablet Take 2 mg by mouth every 8 hours as needed. atorvastatin (LIPITOR) 40 mg tablet Take 1 tablet by mouth daily at bedtime. For cholesterol. montelukast (SINGULAIR) 10 mg tablet Take 1 tablet by mouth daily at bedtime. pantoprazole DR (PROTONIX) 40 mg tablet Take 1 tablet by mouth two times a day before meals. isosorbide mononitrate ER (IMDUR) 60 mg 24 hr tablet Take 1 tablet by mouth once daily. busPIRone (BUSPAR) 10 mg tablet Take 1 tablet by mouth two times a day. sucralfate (CARAFATE) 1 gram tablet TAKE 1 TABLET BY MOUTH THREE TIMES DAILY at 7 AM, 11 AM and 4 pm ehptosqupw-bheasvhi-dg rmoterol (BREZTRI) 160-9-4.8 mcg/actuation HFA aerosol inhaler Inhale 2 Puffs as instructed two times a day. fluticasone (FLONASE) 50 mcg/actuation nasal spray Use 2 Sprays in each nostril once daily. Rinse mouth after use. ondansetron orally disintegrating (ZOFRAN ODT) 4 mg disintegrating tablet Take 1 tablet by mouth every 8 hours as needed for nausea/vomiting. OXYGEN, HOME THERAPY, Inhale 3 L/min as instructed as directed. 3L NC continuous, up to 4L with exertion acetaminophen (TYLENOL) 325 mg tablet Take 650 mg by mouth every 6 hours as needed. nitroglycerin sublingual (NITROSTAT) 0.4 mg SL tablet Dissolve 0.4 mg under the tongue every 5 minutes as needed for chest pain. polyethylene glycol 3350 (MIRALAX) 17 gram/dose powder Take 17 g by mouth as needed for constipation. Dissolve dose in 4 - 8 ounces of liquid and take as directed. albuterol HFA (PROAIR HFA) 90 mcg/actuation inhaler Inhale 2 Puffs as instructed every 4 hours as needed for wheezing/shortness of breath. ipratropium-albuterol (DUONEB) 0.5 mg-3 mg(2.5 mg base)/3 mL nebu Inhale 3 mL as instructed every 4 hours as needed for wheezing/shortness of breath. (Patient taking differently: Inhale 3 mL as instructed every 6 hours as needed for wheezing/shortness of breath.) No current facility-administered medications for this visit. Objective BP 124/62 (BP Site: Right Arm, BP Position: Sitting, BP Cuff Size: Large Adult) Pulse 96 Temp 36.8 ?C (98.2 ?F) (Temporal) Resp 18 Wt 63.4 kg (139 lb 12.4 oz) SpO2 94% BMI 24.37 kg/m? Physical Exam Constitutional: General: She is not in acute distress (more content not included)... Normal [facility] Basic Metabolic Profile (BMP )on 04-09-2024 BUN/CRE 8.3 RATIO Low - [facility] Comment on above: Performed By: #### L 501.5200, L100.0100, L501.2300, L500.2500 ####[facility] [address] [place], [place], [id number] CA,Total 9.1 mg/dL Normal 8.5-10.1 [facility] Comment on above: Performed By: #### L 501.5200, L100.0100, L501.2300, L500.2500 ####[facility] [address] [place], [address] Chloride [Moles/Vol] 101 mmol/L Normal 98-107 [facility] Comment on above: Performed By: #### L 501.5200, L100.0100, L501.2300, L500.2500 ####[facility] [address] [place], [address] CO2 [Moles/Vol] 32.0 mmol/L Normal 21.0-32.0 [facility] Comment on above: Performed By: #### L 501.5200, L100.0100, L501.2300, L500.2500 ####[facility] [address] [place], [address] Creatinine [Mass/Vol] 3.00 mg/dL High 0.55-1.02 [facility] Comment on above: Result Comment: The validity of the calculated GFR GFRAA in patients over70 years has not been determined. Clinical correlation isessential. Performed By: #### L 501.5200, L100.0100, L501.2300, L500.2500 ####[facility] [address] [place], [address] EST GFR - AA 20 mL/min Low >60 [facility] Comment on above: Result Comment: Afri can Micronesian GFR Calc Performed By: #### L 501.5200, L100.0100, L501.2300, L500.2500 ####[facility] [address] [place], [address] GAP 5 Normal 5-15 [facility] Comment on above: Performed By: #### L 501.5200, L100.0100, L501.2300, L500.2500 ####[facility] [address] [place], [address] GFR/1.73 sq M.predicted among non-blacks MDRD (S/P/Bld) [Vol rate/Area] 17 mL/min/{1.73_m2} Low >60 [facility] Comment on above: Result Comment: Non- GFR Calc Performed By: #### L 501.5200, L100.0100, L501.2300, L500.2500 ####[facility] [address] [place], [address] Glucose [Mass/Vol] 141 mg/dL High 74-106 [facility] Comment on above: Result Comment: Fast ing Glucose result greater than or equal to 126 mg/dLsuggests DIABETES MELLITUS per A.D.A. criteria. Performed By: #### L 501.5200, L100.0100, L501.2300, L500.2500 ####[facility] [address] [place], [address] Potassium [Moles/Vol] 4.6 mmol/L Normal 3.5-5.1 [facility] Comment on above: Performed By: #### L 501.5200, L100.0100, L501.2300, L500.2500 ####[facility] [address] [place], [address] Sodium [Moles/Vol] 139 mmol/L Normal 136-145 [facility] Comment on above: Performed By: #### L 501.5200, L100.0100, L501.2300, L500.2500 ####[facility] [address] [place], [address] Urea nitrogen [Mass/Vol] 25 mg/dL High 7-18 [facility] Comment on above: Performed By: #### L 501.5200, L100.0100, L501.2300, L500.2500 ####[facility] [address] [place], [address] CBC W/Diff, Automatedon 10-0 Absolute Lymph 1.43 X10 3/uL Normal 0.83-4.51 [facility] Comment on above: Performed By: #### L 501.5200, L100.0100, L501.2300, L500.2500 ####[facility] [address] [place], [address] Absolute Neut 6.5 X10 3/uL Normal 2.0-7.7 [facility] Comment on above: Performed By: #### L 501.5200, L100.0100, L501.2300, L500.2500 ####[facility] [address] [place], [address] Basophils/100 WBC (Bld) 0.5 % Normal 0-1 [facility] Comment on above: Performed By: #### L 501.5200, L100.0100, L501.2300, L500.2500 ####[facility] [address] [place], [address] Eosinophils/100 WBC (Bld) 3.3 % Normal 0-5 [facility] Comment on above: Performed By: #### L 501.5200, L100.0100, L501.2300, L500.2500 ####[facility] [address] [place], [address] Erythrocyte distribution width (RBC) [Ratio] 13.5 % Normal 11.6-14.6 [facility] Comment on above: Performed By: #### L 501.5200, L100.0100, L501.2300, L500.2500 ####[facility] [address] [place], [address] Hematocrit (Bld) [Volume fraction] 32.1 % Low 37-47 [facility] Comment on above: Performed By: #### L 501.5200, L100.0100, L501.2300, L500.2500 ####[facility] [address] [place], [address] Hemoglobin (Bld) [Mass/Vol] 10.2 g/dL Low 12.0-15.0 [facility] Comment on above: Performed By: #### L 501.5200, L100.0100, L501.2300, L500.2500 ####[facility] [address] [place], [address] IG% 0.300 Normal 0.0-0.9 [facility] Comment on above: Result Comment: IG% - Immature Granulocytes (promyelocytes, myelocytes andmetamyelocytes) > 1% indicates that a LEFT SHIFT is Present. Performed By: #### L 501.5200, L100.0100, L501.2300, L500.2500 ####[facility] [address] [place], [address] Lymphocytes/100 WBC (Bld) 15.7 % Low 19-41 [facility] Comment on above: Performed By: #### L 501.5200, L100.0100, L501.2300, L500.2500 ####[facility] [address] [place], [address] MCH (RBC) [Entitic mass] 30.5 pg Normal 27.0-32.0 [facility] Comment on above: Performed By: #### L 501.5200, L100.0100, L501.2300, L500.2500 ####[facility] [address] [place], [address] MCHC (RBC) [Mass/Vol] 31.8 g/dL Low 32-36 [facility] Comment on above: Performed By: #### L 501.5200, L100.0100, L501.2300, L500.2500 ####[facility] [address] [place], [address] MCV (RBC) [Entitic vol] 96.1 fL Normal 81-99 [facility] Comment on above: Performed By: #### L 501.5200, L100.0100, L501.2300, L500.2500 ####[facility] [address] [place], [address] Monocytes/100 WBC (Bld) 8.6 % Normal 0-10 [facility] Comment on above: Performed By: #### L 501.5200, L100.0100, L501.2300, L500.2500 ####[facility] [address] [place], [address] Neutrophils/100 WBC (Bld) 71.6 % High 47-70 [facility] Comment on above: Performed By: #### L 501.5200, L100.0100, L501.2300, L500.2500 ####[facility] [address] [place], [address] Nucleated RBC (Bld) [#/Vol] 0 10*3/uL Normal 0-5 [facility] Comment on above: Performed By: #### L 501.5200, L100.0100, L501.2300, L500.2500 ####[facility] [address] [place], [address] Platelet mean volume (Bld) [Entitic vol] 9.8 fL Normal 6.2-12.0 [facility] Comment on above: Performed By: #### L 501.5200, L100.0100, L501.2300, L500.2500 ####[facility] [address] [place], [address] Platelets (Bld) [#/Vol] 219 10*3/uL Normal 150-450 [facility] Comment on above: Performed By: #### L 501.5200, L100.0100, L501.2300, L500.2500 ####[facility] [address] [place], [address] RBC (Bld) [#/Vol] 3.34 10*6/uL Low 4.2-5.4 [facility] Comment on above: Performed By: #### L 501.5200, L100.0100, L501.2300, L500.2500 ####[facility] [address] [place], [address] RDW SD 47.3 fl High 35.1-43.9 [facility] Comment on above: Performed By: #### L 501.5200, L100.0100, L501.2300, L500.2500 ####[facility] [address] [place], [address] WBC (Bld) [#/Vol] 9.1 10*3/uL Normal 4.4-11.0 [facility] Comment on above: Performed By: #### L 501.5200, L100.0100, L501.2300, L500.2500 ####[facility] [address] [place], [address] Emergency Department Summary on 04-09-2024 Emergency Department Summary Normal [facility] Magnesiumon 04-09-2024 Magnesium [Mass/Vol] 1.9 mg/dL Normal 1.6-2.6 [facility] Comment on above: Performed By: #### L 501.5200, L100.0100, L501.2300, L500.2500 ####[facility] [address] [place], [address] Phosphoruson 04-09-2024 Phosphate [Mass/Vol] 3.0 mg/dL Normal 2.5-4.9 [facility] Comment on above: Performed By: #### L 501.5200, L100.0100, L501.2300, L500.2500 ####[facility] [address] [place], [address] Venous Blood Gason 4 Blood Gas Type ASAEL Normal [facility] Comment on above: Performed By: #### L 9000.0810 ####[facility] [address] [place], [address] CO2 [Moles/Vol] 31 mmol/L Normal 23-33 [facility] Comment on above: Performed By: #### L 9000.0810 ####[facility] [address] [place], [address] FI02 3.0 Normal [facility] Comment on above: Performed By: #### L 900.0810 ####[facility] [address] [place], [address] HCO3 (Bld) [Moles/Vol] 30 mmol/L High 22-[address] [facility] Comment on above: Performed By: #### L 9000.0810 ####[facility] [address] [place], [address] O2 Delivery Dev Not entered Normal [facility] Comment on above: Performed By: #### L 9000.0810 ####[facility] [address] [place], [address] SITE Not entered [facility] Comment on above: Performed By: #### L 9000.0810 ####[facility] [address] [place], [address] VBG BE 6 mmol/L High -1.0-3.5 [facility] Comment on above: Performed By: #### L 9000.0810 ####[facility] [address] [place], [address] VBG pCO2 39.7 mmHg Low 41-51 [facility] Comment on above: Performed By: #### L 9000.0810 ####[facility] [address] [place], [address] VBG pH 7.48 High 7.32-7.42 [facility] Comment on above: Performed By: #### L 9000.0810 ####[facility] [address] [place], [address] VBG PO2 149 mmHg High 25-40 [facility] Comment on above: Performed By: #### L 9000.0810 ####[facility] [address] [place], [address] VBG SO2 99 High 50-70 [facility] Comment on above: Performed By: #### L 9000.0810 ####[facility] [address] [place], [address] Surgery Visit Reporton 04-05 Surgery Visit Report Normal [facility] 03-20-2024 [facility] Telephone (INTMWS) SNEHA CARDENAS ([id number]) 1955 F Date Time Provider Department 03/20/24 JULIO DRAPER INTWS During your visit today, we recorded the following information about you: Ericka Christopher LPN 03/20/2024 9:05 AM Signed Pt brought in disability forms to be completed from [employer]. In review these forms were completed and faxed back 03/06/24 and dated and signed 03/01/24. Also same forms completed 01/28 and faxed 01/30/24. This one the Dr did forget to date. Date was noted 01/29/24 and faxed 01/30/24. ALL FAXED TO [employer] [phone]. Genna Lowry RN 03/21/2024 4:56 PM Signed Giuseppe from [employer] calls and states that they still have not received forms. Asking for forms to be faxed to [phone]. JAMI Cannon Janice [employer] 03/22/2024 8:18 AM Signed ALL FAXED TO THIS NUMBER TO [employer]. Allergies As of Date: 03/20/2024 Noted Allergy Reaction KEFLEX (CEPHALEXIN) 10/04/2005 5 - Intolerance Comments: Tachycardia, palpitations. Date Reviewed: 02/20/2024 Reviewed by: Yoana Orlando RN - Fully Assessed Reason for Visit: Forms [913] Prescriptions as of 03/22/2024 - atorvastatin (LIPITOR) 40 mg tablet Take 1 tablet by mouth daily at bedtime. For cholesterol. - amLODIPine (NORVASC) 5 mg tablet Take 1 tablet by mouth every morning. - montelukast (SINGULAIR) 10 mg tablet Take 1 tablet by mouth daily at bedtime. - pantoprazole DR (PROTONIX) 40 mg tablet Take 1 tablet by mouth two times a day before meals. - isosorbide mononitrate ER (IMDUR) 60 mg 24 hr tablet Take 1 tablet by mouth once daily. - busPIRone (BUSPAR) 10 mg tablet Take 1 tablet by mouth two times a day. - metoprolol tartrate, short acting, (LOPRESSOR) 25 mg tablet Take 1 tablet by mouth every 12 hours. - sucralfate (CARAFATE) 1 gram tablet TAKE 1 TABLET BY MOUTH THREE TIMES DAILY at 7 AM, 11 AM and 4 pm - gkdncugxzo-okyfktwi-tu rmoterol (BREZTRI) 160-9-4.8 mcg/actuation HFA aerosol inhaler Inhale 2 Puffs as instructed two times a day. - fluticasone (FLONASE) 50 mcg/actuation nasal spray Use 2 Sprays in each nostril once daily. Rinse mouth after use. - ondansetron orally disintegrating (ZOFRAN ODT) 4 mg disintegrating tablet Take 1 tablet by mouth every 8 hours as needed for nausea/vomiting. - OXYGEN, HOME THERAPY, Inhale 3 L/min as instructed as directed. 3L NC continuous, up to 4L with exertion - acetaminophen (TYLENOL) 325 mg tablet Take 650 mg by mouth every 6 hours as needed. - nitroglycerin sublingual (NITROSTAT) 0.4 mg SL tablet Dissolve 0.4 mg under the tongue every 5 minutes as needed for chest pain. - polyethylene glycol 3350 (MIRALAX) 17 gram/dose powder Take 17 g by mouth as needed for constipation. Dissolve dose in 4 - 8 ounces of liquid and take as directed. - albuterol HFA (PROAIR HFA) 90 mcg/actuation inhaler Inhale 2 Puffs as instructed every 4 hours as needed for wheezing/shortness of breath. - ipratropium-albuterol (DUONEB) 0.5 mg-3 mg(2.5 mg base)/3 mL nebu Inhale 3 mL as instructed every 4 hours as needed for wheezing/shortness of breath. Problem List As Of Date 03/20/2024 Noted Resolved Tobacco use disorder [F17.200] 11/02/2007 02/10/2017 Essential tremor [G25.0] 11/02/2007 Other specified disorder of gallbladder [K82.8] 12/11/2007 07/20/2012 Unspecified gastritis and gastroduodenitis with*02/09/2010 07/15/2015 Blood in stool [K92.1] 02/09/2010 07/20/2012 Loss of weight [R63.4] 02/09/2010 07/20/2012 Upper GI bleed [K92.2] 02/09/2010 Acute gastritis without mention of hemorrhage [*02/09/2010 07/20/2012 Essential hypertension, benign [I10] 05/17/2011 07/15/2015 Migraine headache [G43.909] 07/15/2015 Irritable bowel syndrome [K58.9] 07/15/2015 Scoliosis [M41.9] 02/10/2017 Environmental allergies [Z91.09] History of colon polyps [Z86.010] 07/15/2015 Chronic obstructive pulmonary disease (HCC) [J4*07/25/2012 Cervical disc disorder with radiculopathy [M50.*08/15/2015 02/10/2017 DDD (degenerative disc disease), cervical [M50.*08/15/2015 02/10/2017 Primary hypertension [I10] 06/03/2016 Asthma [J45.909] 02/15/2019 Hyperlipidemia [E78.5] 02/15/2019 Age-related osteoporosis without current pathol*08/28/2021 Hypoxemia [R09.02] 05/01/2021 08/25/2023 Lung nodule [R91.1] 05/12/2021 Elevated blood pressure reading [R03.0] 05/03/2022 08/25/2023 Chronic respiratory failure with hypoxia (HCC) *11/05/2022 Duodenal ulcer [K26.9] 06/30/2023 Paroxysmal atrial fibrillation (HCC) [I48.0] 06/30/2023 Pneumonia due to infectious organism [J18.9] 06/30/2023 Anemia requiring transfusions [D64.9] 07/01/2023 Acute on chronic hypoxic respiratory failure (H*07/09/2023 08/25/2023 Empyema (HCC) [J86.9] 07/09/2023 08/25/2023 Dysphagia [R13.10] 07/09/2023 Shock, septic (HCC) [A41.9, R65.21] 07/11/2023 08/25/2023 Antibiotic-associated diarrhea [K52.1, T36.95XA]07/04 (more content not included)... Normal [facility] Basic Metabolic Profile (BMP )on 03-19-2024 BUN/CRE 7.4 RATIO Low 10-20 [facility] Comment on above: Order Comment: 1Y Performed By: #### L 500.2500, L100.0100, L501.5425 ####[facility] [address] [place], [address] CA,Total 9.3 mg/dL Normal 8.5-10.1 [facility] Comment on above: Order Comment: 1Y Performed By: #### L 500.2500, L100.0100, L501.5425 ####[facility] [address] [place], [address] Chloride [Moles/Vol] 99 mmol/L Normal 98-107 [facility] Comment on above: Order Comment: 1Y Performed By: #### L 500.2500, L100.0100, L501.5425 ####[facility] [address] [place], [address] CO2 [Moles/Vol] 33.0 mmol/L High 21.0-32.0 [facility] Comment on above: Order Comment: 1Y Performed By: #### L 500.2500, L100.0100, L501.5425 ####[facility] [address] [place], [address] Creatinine [Mass/Vol] 2.57 mg/dL High 0.55-1.02 [facility] Comment on above: Order Comment: 1Y Result Comment: The validity of the calculated GFR GFRAA in patients over70 years has not been determined. Clinical correlation isessential. Performed By: #### L 500.2500, L100.0100, L501.5425 ####[facility] [address] [place], [address] ECRCL 19.37 ml/min Normal [facility] Comment on above: Order Comment: 1Y Performed By: #### L 500.2500, L100.0100, L501.5425 ####[facility] [address] [place], [address] EST GFR - AA 24 mL/min Low >60 [facility] Comment on above: Order Comment: 1Y Result Comment: Afri can Micronesian GFR Calc Performed By: #### L 500.2500, L100.0100, L501.5425 ####[facility] [address] [place], [address] GAP 5 Normal 5-15 [facility] Comment on above: Order Comment: 1Y Performed By: #### L 500.2500, L100.0100, L501.5425 ####[facility] [address] [place], [address] GFR/1.73 sq M.predicted among non-blacks MDRD (S/P/Bld) [Vol rate/Area] 20 mL/min/{1.73_m2} Low >60 [facility] Comment on above: Order Comment: 1Y Result Comment: Non- GFR Calc Performed By: #### L 500.2500, L100.0100, L501.5425 ####[facility] [address] [place], [address] Glucose [Mass/Vol] 104 mg/dL Normal 74-106 [facility] Comment on above: Order Comment: 1Y Result Comment: Fast ing Glucose result from 100 to 125 mg/dLsuggests IMPAIRED HOMEOSTASIS per A.D.A. criteria. Performed By: #### L 500.2500, L100.0100, L501.5425 ####[facility] [address] [place], [address] Potassium [Moles/Vol] 4.3 mmol/L Normal 3.5-5.1 [facility] Comment on above: Order Comment: 1Y Performed By: #### L 500.2500, L100.0100, L501.5425 ####[facility] [address] [place], [address] Sodium [Moles/Vol] 137 mmol/L Normal 136-145 [facility] Comment on above: Order Comment: 1Y Performed By: #### L 500.2500, L100.0100, L501.5425 ####[facility] [address] [place], [address] Urea nitrogen [Mass/Vol] 19 mg/dL High 7-18 [facility] Comment on above: Order Comment: 1Y Performed By: #### L 500.2500, L100.0100, L501.5425 ####[facility] [address] [place], [address] CBC W/Diff, Automatedon 03-04 Absolute Lymph 1.92 X10 3/uL Normal 0.83-4.51 [facility] Comment on above: Performed By: #### L 500.2500, L100.0100, L501.5425 ####[facility] [address] [place], [address] Absolute Neut 6.2 X10 3/uL Normal 2.0-7.7 [facility] Comment on above: Performed By: #### L 500.2500, L100.0100, L501.5425 ####[facility] [address] [place], [address] Basophils/100 WBC (Bld) 0.8 % Normal 0-1 [facility] Comment on above: Performed By: #### L 500.2500, L100.0100, L501.5425 ####[facility] [address] [place], [address] Eosinophils/100 WBC (Bld) 5.2 % High 0-5 [facility] Comment on above: Performed By: #### L 500.2500, L100.0100, L501.5425 ####[facility] [address] [place], [address] Erythrocyte distribution width (RBC) [Ratio] 12.9 % Normal 11.6-14.6 [facility] Comment on above: Performed By: #### L 500.2500, L100.0100, L501.5425 ####[facility] [address] [place], [address] Hematocrit (Bld) [Volume fraction] 36.3 % Low 37-47 [facility] Comment on above: Performed By: #### L 500.2500, L100.0100, L501.5425 ####[facility] [address] [place], [address] Hemoglobin (Bld) [Mass/Vol] 11.2 g/dL Low 12.0-15.0 [facility] Comment on above: Performed By: #### L 500.2500, L100.0100, L501.5425 ####[facility] [address] [place], [address] IG% 0.300 Normal 0.0-0.9 [facility] Comment on above: Result Comment: IG% - Immature Granulocytes (promyelocytes, myelocytes andmetamyelocytes) > 1% indicates that a LEFT SHIFT is Present. Performed By: #### L 500.2500, L100.0100, L501.5425 ####[facility] [address] [place], [address] Lymphocytes/100 WBC (Bld) 20.1 % Normal 19-41 [facility] Comment on above: Performed By: #### L 500.2500, L100.0100, L501.5425 ####[facility] [address] [place], [address] MCH (RBC) [Entitic mass] 29.8 pg Normal 27.0-32.0 [facility] Comment on above: Performed By: #### L 500.2500, L100.0100, L501.5425 ####[facility] [address] [place], [address] MCHC (RBC) [Mass/Vol] 30.9 g/dL Low 32-36 [facility] Comment on above: Performed By: #### L 500.2500, L100.0100, L501.5425 ####[facility] [address] [place], [address] MCV (RBC) [Entitic vol] 96.5 fL Normal 81-99 [facility] Comment on above: Performed By: #### L 500.2500, L100.0100, L501.5425 ####[facility] [address] [place], [address] Monocytes/100 WBC (Bld) 8.7 % Normal 0-10 [facility] Comment on above: Performed By: #### L 500.2500, L100.0100, L501.5425 ####[facility] [address] [place], [address] Neutrophils/100 WBC (Bld) 64.9 % Normal 47-70 [facility] Comment on above: Performed By: #### L 500.2500, L100.0100, L501.5425 ####[facility] [address] [place], [address] Nucleated RBC (Bld) [#/Vol] 0 10*3/uL Normal 0-5 [facility] Comment on above: Performed By: #### L 500.2500, L100.0100, L501.5425 ####[facility] [address] [place], [address] Platelet mean volume (Bld) [Entitic vol] 10.6 fL Normal 6.2-12.0 [facility] Comment on above: Performed By: #### L 500.2500, L100.0100, L501.5425 ####[facility] [address] [place], [address] Platelets (Bld) [#/Vol] 217 10*3/uL Normal 150-450 [facility] Comment on above: Performed By: #### L 500.2500, L100.0100, L501.5425 ####[facility] [address] [place], [address] RBC (Bld) [#/Vol] 3.76 10*6/uL Low 4.2-5.4 [facility] Comment on above: Performed By: #### L 500.2500, L100.0100, L501.5425 ####[facility] [address] [place], [address] RDW SD 45.8 fl High 35.1-43.9 [facility] Comment on above: Performed By: #### L 500.2500, L100.0100, L501.5425 ####[facility] [address] [place], [address] WBC (Bld) [#/Vol] 9.6 10*3/uL Normal 4.4-11.0 [facility] Comment on above: Performed By: #### L 500.2500, L100.0100, L501.5425 ####[facility] [address] [place], [address] Chest 1 View (Portable)on Chest 1 View (Portable) Normal [facility] Emergency Department Summary on 03-19-2024 Emergency Department Summary Normal [facility] L501.4020on 03-19-2024 TROPONIN-I HS 8 pg/mL Normal 3.0-54.0 [facility] Comment on above: Result Comment: Plea se Note: New Test Units and Gender Specific Reference Ranges. For more information see Policy Stat Procedure Pierson High Sensitivity Troponin (TNIH) and attachments. Performed By: #### L 501.4020 ####[facility] [address] [place], [address] L501.5425on 03-19-2024 TROPONIN-I HS 6 pg/mL Normal 3.0-54.0 [facility] Comment on above: Order Comment: 1Y Result Comment: Plea se Note: New Test Units and Gender Specific Reference Ranges. For more information see Policy Stat Procedure Pierson High Sensitivity Troponin (TNIH) and attachments. Performed By: #### L 500.2500, L100.0100, L501.5425 ####[facility] [address] [place], [address] Discharge Instructionon 03-04 Discharge Instruction Normal [facility] MR/POSTOP.ANEon 03-13-2024 MR/POSTOP.ANE Normal [facility] MR/RTIVAMMK1gk 03-13-2024 MR/POSTOPAN2 Normal [facility] Operative Reporton Operative Report Normal [facility] CNPNon 03-06-2024 [facility] Telephone (INTMWS) CONORSNEHA ([id number]) 1955 F Date Time Provider Department 03/06/24 JULIO DRAPER During your visit today, we recorded the following information about you: Ericka Christopher LPN 03/06/2024 8:53 AM Signed 02/22/24 fax back to [employer] was forms from November. Rec'd from pt new forms. Pcp completed them they have been faxed back to the number on the form. Allergies As of Date: 03/06/2024 Noted Allergy Reaction KEFLEX (CEPHALEXIN) 10/04/2005 5 - Intolerance Comments: Tachycardia, palpitations. Date Reviewed: 02/20/2024 Reviewed by: Yoana Orlando RN - Fully Assessed Reason for Visit: disability forms from [employer] services [Other] Prescriptions as of 03/06/2024 - owkadhtxzh-bgllfxsc-yb rmoterol (BREZTRI) 160-9-4.8 mcg/actuation HFA aerosol inhaler Inhale 2 Puffs as instructed two times a day. - isosorbide mononitrate ER (IMDUR) 60 mg 24 hr tablet Take 1 tablet by mouth once daily. - busPIRone (BUSPAR) 10 mg tablet Take 1 tablet by mouth two times a day. - amLODIPine (NORVASC) 5 mg tablet Take 1 tablet by mouth every morning. - pantoprazole DR (PROTONIX) 40 mg tablet Take 1 tablet by mouth two times a day before meals. - metoprolol tartrate, short acting, (LOPRESSOR) 25 mg tablet Take 1 tablet by mouth every 12 hours. - montelukast (SINGULAIR) 10 mg tablet Take 1 tablet by mouth daily at bedtime. - sucralfate (CARAFATE) 1 gram tablet TAKE 1 TABLET BY MOUTH THREE TIMES DAILY at 7 AM, 11 AM and 4 pm - fluticasone (FLONASE) 50 mcg/actuation nasal spray Use 2 Sprays in each nostril once daily. Rinse mouth after use. - ondansetron orally disintegrating (ZOFRAN ODT) 4 mg disintegrating tablet Take 1 tablet by mouth every 8 hours as needed for nausea/vomiting. - OXYGEN, HOME THERAPY, Inhale 3 L/min as instructed as directed. 3L NC continuous, up to 4L with exertion - acetaminophen (TYLENOL) 325 mg tablet Take 650 mg by mouth every 6 hours as needed. - nitroglycerin sublingual (NITROSTAT) 0.4 mg SL tablet Dissolve 0.4 mg under the tongue every 5 minutes as needed for chest pain. - polyethylene glycol 3350 (MIRALAX) 17 gram/dose powder Take 17 g by mouth as needed for constipation. Dissolve dose in 4 - 8 ounces of liquid and take as directed. - atorvastatin (LIPITOR) 40 mg tablet Take 1 tablet by mouth daily at bedtime. For cholesterol. - albuterol HFA (PROAIR HFA) 90 mcg/actuation inhaler Inhale 2 Puffs as instructed every 4 hours as needed for wheezing/shortness of breath. - ipratropium-albuterol (DUONEB) 0.5 mg-3 mg(2.5 mg base)/3 mL nebu Inhale 3 mL as instructed every 4 hours as needed for wheezing/shortness of breath. Problem List As Of Date 03/06/2024 Noted Resolved Tobacco use disorder [F17.200] 11/02/2007 02/10/2017 Essential tremor [G25.0] 11/02/2007 Other specified disorder of gallbladder [K82.8] 12/11/2007 07/20/2012 Unspecified gastritis and gastroduodenitis with*02/09/2010 07/15/2015 Blood in stool [K92.1] 02/09/2010 07/20/2012 Loss of weight [R63.4] 02/09/2010 07/20/2012 Upper GI bleed [K92.2] 02/09/2010 Acute gastritis without mention of hemorrhage [*02/09/2010 07/20/2012 Essential hypertension, benign [I10] 05/17/2011 07/15/2015 Migraine headache [G43.909] 07/15/2015 Irritable bowel syndrome [K58.9] 07/15/2015 Scoliosis [M41.9] 02/10/2017 Environmental allergies [Z91.09] History of colon polyps [Z86.010] 07/15/2015 Chronic obstructive pulmonary disease (HCC) [J4*07/25/2012 Cervical disc disorder with radiculopathy [M50.*08/15/2015 02/10/2017 DDD (degenerative disc disease), cervical [M50.*08/15/2015 02/10/2017 Primary hypertension [I10] 06/03/2016 Asthma [J45.909] 02/15/2019 Hyperlipidemia [E78.5] 02/15/2019 Age-related osteoporosis without current pathol*08/28/2021 Hypoxemia [R09.02] 05/01/2021 08/25/2023 Lung nodule [R91.1] 05/12/2021 Elevated blood pressure reading [R03.0] 05/03/2022 08/25/2023 Chronic respiratory failure with hypoxia (HCC) *11/05/2022 Duodenal ulcer [K26.9] 06/30/2023 Paroxysmal atrial fibrillation (HCC) [I48.0] 06/30/2023 Pneumonia due to infectious organism [J18.9] 06/30/2023 Anemia requiring transfusions [D64.9] 07/01/2023 Acute on chronic hypoxic respiratory failure (H*07/09/2023 08/25/2023 Empyema (HCC) [J86.9] 07/09/2023 08/25/2023 Dysphagia [R13.10] 07/09/2023 Shock, septic (HCC) [A41.9, R65.21] 07/11/2023 08/25/2023 Antibiotic-associated diarrhea [K52.1, T36.95XA]07/14/2023 Pulmonary emphysema (HCC) [J43.9] 07/19/2023 Former smoker [Z87.891] 07/19/2023 NSTEMI (non-ST elevated myocardial infarction) *07/20/2023 History of GI bleed [Z87.19] 07/20/2023 EARNEST (acute kidney injury) (HCC) [N17.9] 07/20/2023 08/25/2023 Elevated troponin [R79.89] 07/20/2023 08/25/2023 History of COPD [Z87.09] 07/20/2023 Pleural effusion [J90] 07/24/2023 Acute respiratory failure with hypoxia (HCC) [ (more content not included)... Normal [facility] Basic Metabolic Profile (BMP )on 02-27-2024 BUN/CRE 7.7 RATIO Low 10-20 [facility] Comment on above: Performed By: #### L 500.2500, L100.0500 ####[facility] [address] [place], [address] CA,Total 9.0 mg/dL Normal 8.5-10.1 [facility] Comment on above: Performed By: #### L 500.2500, L100.0500 ####[facility] [address] [place], [address] Chloride [Moles/Vol] 101 mmol/L Normal 98-107 [facility] Comment on above: Performed By: #### L 500.2500, L100.0500 ####[facility] [address] [place], [address] CO2 [Moles/Vol] 30.0 mmol/L Normal 21.0-32.0 [facility] Comment on above: Performed By: #### L 500.2500, L100.0500 ####[facility] [address] [place], [address] Creatinine [Mass/Vol] 3.12 mg/dL High 0.55-1.02 [facility] Comment on above: Result Comment: The validity of the calculated GFR GFRAA in patients over70 years has not been determined. Clinical correlation isessential. Performed By: #### L 500.2500, L100.0500 ####[facility] [address] [place], [address] EST GFR - AA 19 mL/min Low >60 [facility] Comment on above: Result Comment: Afri can Micronesian GFR Calc Performed By: #### L 500.2500, L100.0500 ####[facility] [address] [place], [address] GAP 8 Normal 5-15 [facility] Comment on above: Performed By: #### L 500.2500, L100.0500 ####[facility] [address] [place], [address] GFR/1.73 sq M.predicted among non-blacks MDRD (S/P/Bld) [Vol rate/Area] 16 mL/min/{1.73_m2} Low >60 [facility] Comment on above: Result Comment: Non- GFR Calc Performed By: #### L 500.2500, L100.0500 ####[facility] [address] [place], [address] Glucose [Mass/Vol] 103 mg/dL Normal 74-106 [facility] Comment on above: Result Comment: Fast ing Glucose result from 100 to 125 mg/dLsuggests IMPAIRED HOMEOSTASIS per A.D.A. criteria. Performed By: #### L 500.2500, L100.0500 ####[facility] [address] [place], [address] Potassium [Moles/Vol] 3.9 mmol/L Normal 3.5-5.1 [facility] Comment on above: Performed By: #### L 500.2500, L100.0500 ####[facility] [address] [place], [address] Sodium [Moles/Vol] 139 mmol/L Normal 136-145 [facility] Comment on above: Performed By: #### L 500.2500, L100.0500 ####[facility] [address] [place], [address] Urea nitrogen [Mass/Vol] 24 mg/dL High 7-18 [facility] Comment on above: Performed By: #### L 500.2500, L100.0500 ####[facility] [address] [place], [address] CBC-Complete Blood Cnt No Jessica ramos 02-27-2024 Erythrocyte distribution width (RBC) [Ratio] 12.6 % Normal 11.6-14.6 [facility] Comment on above: Performed By: #### L 500.2500, L100.0500 ####[facility] [address] [place], [address] Hematocrit (Bld) [Volume fraction] 33.1 % Low 37-47 [facility] Comment on above: Performed By: #### L 500.2500, L100.0500 ####[facility] [address] [place], [address] Hemoglobin (Bld) [Mass/Vol] 10.4 g/dL Low 12.0-15.0 [facility] Comment on above: Performed By: #### L 500.2500, L100.0500 ####[facility] [address] [place], [address] MCH (RBC) [Entitic mass] 30.0 pg Normal 27.0-32.0 [facility] Comment on above: Performed By: #### L 500.2500, L100.0500 ####[facility] [address] [place], [address] MCHC (RBC) [Mass/Vol] 31.4 g/dL Low 32-36 [facility] Comment on above: Performed By: #### L 500.2500, L100.0500 ####[facility] [address] [place], [address] MCV (RBC) [Entitic vol] 95.4 fL Normal 81-99 [facility] Comment on above: Performed By: #### L 500.2500, L100.0500 ####[facility] [address] [place], [address] Platelet mean volume (Bld) [Entitic vol] 10.4 fL Normal 6.2-12.0 [facility] Comment on above: Performed By: #### L 500.2500, L100.0500 ####[facility] [address] [place], [address] Platelets (Bld) [#/Vol] 237 10*3/uL Normal 150-450 [facility] Comment on above: Performed By: #### L 500.2500, L100.0500 ####[facility] [address] [place], [address] RBC (Bld) [#/Vol] 3.47 10*6/uL Low 4.2-5.4 [facility] Comment on above: Performed By: #### L 500.2500, L100.0500 ####[facility] [address] [place], [address] RDW SD 44.0 fl High 35.1-43.9 [facility] Comment on above: Performed By: #### L 500.2500, L100.0500 ####[facility] [address] [place], [address] WBC (Bld) [#/Vol] 9.2 10*3/uL Normal 4.4-11.0 [facility] Comment on above: Performed By: #### L 500.2500, L100.0500 ####[facility] [address] [place], [address] [facility] SNEHA CARDENAS ([id number]) 1955 F Date Time Provider Department 02/22/24 JULIO DRAPER During your visit today, we recorded the following information about you: Estella Oliva LPN 02/22/2024 2:07 PM Signed [employer] called, states that a form has been faxed for patient but they have not received it back. Asked for an alternative fax #. Confirmed they had the correct fax # and gave the [phone] as well. Commercial Service Technician requested that we watch both fax numbers for this form. Anushka Alexis LPN 02/22/2024 2:30 PM Signed [employer] form refaxed. Anushka Alexis LPN Allergies As of Date: 02/22/2024 Noted Allergy Reaction KEFLEX (CEPHALEXIN) 10/04/2005 5 - Intolerance Comments: Tachycardia, palpitations. Date Reviewed: 02/20/2024 Reviewed by: Yoana Orlando RN - Fully Assessed Prescriptions as of 02/22/2024 - tiuwjztxyo-fvramihu-gt rmoterol (BREZTRI) 160-9-4.8 mcg/actuation HFA aerosol inhaler Inhale 2 Puffs as instructed two times a day. - isosorbide mononitrate ER (IMDUR) 60 mg 24 hr tablet Take 1 tablet by mouth once daily. - busPIRone (BUSPAR) 10 mg tablet Take 1 tablet by mouth two times a day. - amLODIPine (NORVASC) 5 mg tablet Take 1 tablet by mouth every morning. - pantoprazole DR (PROTONIX) 40 mg tablet Take 1 tablet by mouth two times a day before meals. - metoprolol tartrate, short acting, (LOPRESSOR) 25 mg tablet Take 1 tablet by mouth every 12 hours. - montelukast (SINGULAIR) 10 mg tablet Take 1 tablet by mouth daily at bedtime. - sucralfate (CARAFATE) 1 gram tablet TAKE 1 TABLET BY MOUTH THREE TIMES DAILY at 7 AM, 11 AM and 4 pm - fluticasone (FLONASE) 50 mcg/actuation nasal spray Use 2 Sprays in each nostril once daily. Rinse mouth after use. - ondansetron orally disintegrating (ZOFRAN ODT) 4 mg disintegrating tablet Take 1 tablet by mouth every 8 hours as needed for nausea/vomiting. - OXYGEN, HOME THERAPY, Inhale 3 L/min as instructed as directed. 3L NC continuous, up to 4L with exertion - acetaminophen (TYLENOL) 325 mg tablet Take 650 mg by mouth every 6 hours as needed. - nitroglycerin sublingual (NITROSTAT) 0.4 mg SL tablet Dissolve 0.4 mg under the tongue every 5 minutes as needed for chest pain. - polyethylene glycol 3350 (MIRALAX) 17 gram/dose powder Take 17 g by mouth as needed for constipation. Dissolve dose in 4 - 8 ounces of liquid and take as directed. - atorvastatin (LIPITOR) 40 mg tablet Take 1 tablet by mouth daily at bedtime. For cholesterol. - albuterol HFA (PROAIR HFA) 90 mcg/actuation inhaler Inhale 2 Puffs as instructed every 4 hours as needed for wheezing/shortness of breath. - ipratropium-albuterol (DUONEB) 0.5 mg-3 mg(2.5 mg base)/3 mL nebu Inhale 3 mL as instructed every 4 hours as needed for wheezing/shortness of breath. Problem List As Of Date 02/22/2024 Noted Resolved Tobacco use disorder [F17.200] 11/02/2007 02/10/2017 Essential tremor [G25.0] 11/02/2007 Other specified disorder of gallbladder [K82.8] 12/11/2007 07/20/2012 Unspecified gastritis and gastroduodenitis with*02/09/2010 07/15/2015 Blood in stool [K92.1] 02/09/2010 07/20/2012 Loss of weight [R63.4] 02/09/2010 07/20/2012 Upper GI bleed [K92.2] 02/09/2010 Acute gastritis without mention of hemorrhage [*02/09/2010 07/20/2012 Essential hypertension, benign [I10] 05/17/2011 07/15/2015 Migraine headache [G43.909] 07/15/2015 Irritable bowel syndrome [K58.9] 07/15/2015 Scoliosis [M41.9] 02/10/2017 Environmental allergies [Z91.09] History of colon polyps [Z86.010] 07/15/2015 Chronic obstructive pulmonary disease (HCC) [J4*07/25/2012 Cervical disc disorder with radiculopathy [M50.*08/15/2015 02/10/2017 DDD (degenerative disc disease), cervical [M50.*08/15/2015 02/10/2017 Primary hypertension [I10] 06/03/2016 Asthma [J45.909] 02/15/2019 Hyperlipidemia [E78.5] 02/15/2019 Age-related osteoporosis without current pathol*08/28/2021 Hypoxemia [R09.02] 05/01/2021 08/25/2023 Lung nodule [R91.1] 05/12/2021 Elevated blood pressure reading [R03.0] 05/03/2022 08/25/2023 Chronic respiratory failure with hypoxia (HCC) *11/05/2022 Duodenal ulcer [K26.9] 06/30/2023 Paroxysmal atrial fibrillation (HCC) [I48.0] 06/30/2023 Pneumonia due to infectious organism [J18.9] 06/30/2023 Anemia requiring transfusions [D64.9] 07/01/2023 Acute on chronic hypoxic respiratory failure (H*07/09/2023 08/25/2023 Empyema (HCC) [J86.9] 07/09/2023 08/25/2023 Dysphagia [R13.10] 07/09/2023 Shock, septic (HCC) [A41.9, R65.21] 07/11/2023 08/25/2023 Antibiotic-associated diarrhea [K52.1, T36.95XA]07/14/2023 Pulmonary emphysema (HCC) [J43.9] 07/19/2023 Former smoker [Z87.891] 07/19/2023 NSTEMI (non-ST elevated myocardial infarction) *07/20/2023 History of GI bleed [Z87.19] 07/20/2023 EARNEST (acute kidney injury) (HCC) [N17.9] 07/20/2023 08/25/2023 Elevated t (more content not included)... Normal [facility] ANES POSTPROC EVALon 024 ANES POSTPROC EVAL HNO ID: [id number] Author: CALVIN PADGETT MD Service: ? Author Type: Anesthesiologist Type: Anesthesia Postprocedure Evaluation Filed: 02/20/2024 14:40 Note Text: POST ANESTHESIA EVALUATION NOTE : 1955 Procedure Summary Date: 02/20/24 Room / Location: Gastroenterology Anesthesia Start: 1347 Anesthesia Stop: 1424 Procedure: ENTEROSCOPY Diagnosis: AVM (arteriovenous malformation) of small bowel, acquired (Obscure gastrointestinal bleeding) Scheduled Providers: Dylon Laird MD; Bindu Pereira APRN.PSYCHIATRY INSTRUCTOR; Calvin Padgett MD Responsible Provider: Calvin Padgett MD Anesthesia Type: general ASA Status: 4 Anesthesia Type: general Airway Type: anesthesia mask Last Vitals Vitals Value Taken Time BP 101/58 02/20/24 1430 Temp 36 ?C (96.8 ?F) 02/20/24 1424 Pulse 48 02/20/24 1439 Resp 16 02/20/24 1424 SpO2 100 % 02/20/24 1439 Vitals shown include unfiled device data. Post Anesthesia Patient Status Patient Evaluation: bedside. Anticipated Disposition: phase 2 then home. Neurological Status: aware and responsive. Pulmonary Status: breathing comfortably on room air Airway Control: returned to baseline unsupported. Cardiovascular Status: stable. Pain Management: clinically adequate Postoperative Hydration: acceptable. Intraoperative Events: no significant anesthesia events Post Operative Nausea/Vomiting Status: no significant post operative nausea or vomiting Recommendation: further care per PACU/ICU/floor team. Anesthesia Observations No Documentation SIGNATURE: Calvin Padgett MD PATIENT NAME: Sneha Cardenas DATE: February 20, 2024 TIME: 2:40 PM CSN: [id number] Normal [facility] ANES PRE-OPon 02-20-2024 ANES PRE-OP HNO ID: [id number] Author: CALVIN PADGETT MD Service: ? Author Type: Anesthesiologist Type: Anesthesia Preprocedure Evaluation Filed: 02/20/2024 13:46 Note Text: ANESTHESIOLOGY DAY OF SURGERY NOTE : 1955 Procedure Information Date/Time: 02/20/24 1300 Scheduled providers: Dylon Laird MD; iBndu Pereira APRN.PSYCHIATRY INSTRUCTOR; Calvin Padgett MD Procedure: ENTEROSCOPY Location: Gastroenterology Estimated body mass index is 22.14 kg/m? as calculated from the following: Height as of 11/11/23: 161.3 cm (5' 3.5). Weight as of 11/11/23: 57.6 kg (127 lb). Most recent hematocrit and potassium results: Hematocrit 25.8 08/25/2023 Potassium 5.0 08/18/2023 Relevant Problems No relevant active problems I - PHYSICAL EVALUATION AIRWAY Patient intubated: No. Tracheostomy tube not present Mallampati: III. TM distance: >3 FB. Neck ROM: full ROM without neurological symptoms. Mouth opening: adequate. Short neck: no. Thick neck: no DENTAL Dental findings: missing tooth/teeth and chipped. II - ANESTHESIA PLAN ASA Score: 4 Anesthetic Plan: general Airway type: anesthesia mask NPO Status: adequate Beta Vincenzo Monitoring Plan Post Procedure Analgesic Plan Postoperative analgesic plan: multimodal analgesia. Informed Consent Anesthetic risks, benefits, alternatives, personnel and consent discussed: yes. Patient / Responsible Republican agrees to proceed: yes Patient / Surrogate agrees to blood products: Yes Significant changes in the patient condition since the History and Physical, not otherwise documented in primary service progress note: no. Potential Anesthesia issues that may suggest increased risk of complications or contraindication to planned procedure: none. No vitals data found for the desired time range. Outpatient Medications as of 02/20/2024 Medication Sig vnnhruvcqt-kratngtb-ww rmoterol (BREZTRI) 160-9-4.8 mcg/actuation HFA aerosol inhaler Inhale 2 Puffs as instructed two times a day. isosorbide mononitrate ER (IMDUR) 60 mg 24 hr tablet Take 1 tablet by mouth once daily. busPIRone (BUSPAR) 10 mg tablet Take 1 tablet by mouth two times a day. amLODIPine (NORVASC) 5 mg tablet Take 1 tablet by mouth every morning. pantoprazole DR (PROTONIX) 40 mg tablet Take 1 tablet by mouth two times a day before meals. metoprolol tartrate, short acting, (LOPRESSOR) 25 mg tablet Take 1 tablet by mouth every 12 hours. montelukast (SINGULAIR) 10 mg tablet Take 1 tablet by mouth daily at bedtime. sucralfate (CARAFATE) 1 gram tablet TAKE 1 TABLET BY MOUTH THREE TIMES DAILY at 7 AM, 11 AM and 4 pm fluticasone (FLONASE) 50 mcg/actuation nasal spray Use 2 Sprays in each nostril once daily. Rinse mouth after use. ondansetron orally disintegrating (ZOFRAN ODT) 4 mg disintegrating tablet Take 1 tablet by mouth every 8 hours as needed for nausea/vomiting. OXYGEN, HOME THERAPY, Inhale 3 L/min as instructed as directed. 3L NC continuous, up to 4L with exertion acetaminophen (TYLENOL) 325 mg tablet Take 650 mg by mouth every 6 hours as needed. nitroglycerin sublingual (NITROSTAT) 0.4 mg SL tablet Dissolve 0.4 mg under the tongue every 5 minutes as needed for chest pain. polyethylene glycol 3350 (MIRALAX) 17 gram/dose powder Take 17 g by mouth as needed for constipation. Dissolve dose in 4 - 8 ounces of liquid and take as directed. atorvastatin (LIPITOR) 40 mg tablet Take 1 tablet by mouth daily at bedtime. For cholesterol. albuterol HFA (PROAIR HFA) 90 mcg/actuation inhaler Inhale 2 Puffs as instructed every 4 hours as needed for wheezing/shortness of breath. ipratropium-albuterol (DUONEB) 0.5 mg-3 mg(2.5 mg base)/3 mL nebu Inhale 3 mL as instructed every 4 hours as needed for wheezing/shortness of breath. (Patient taking differently: Inhale 3 mL as instructed every 6 hours as needed for wheezing/shortness of breath.) No current facility-administered medications on file as of 02/20/2024. I have interviewed and examined the patient. I have reviewed the medical record and/or the pre-anesthesia evaluation, pertinent labs, and test results. This contains updated information obtained within 48 hours of Surgery/Procedure. SIGNATURE: Calvin Padgett MD PATIENT NAME: Sneha Cardenas DATE: February 20, 2024 TIME: 12:34 PM CSN: [id number] Normal [facility] Enteroscopy Study observatio n Narrativeon 02-20-2024 [facility] Radiology Study observation (narrative) Marleny mckeon [facility] Gas and Carbon monoxide pane l (BldV)on 02-20-2024 Base excess Calc (BldV) [Moles/Vol] 0 mmol/L 0 - 2 mmol/L [facility] Body temperature 98.6 [degF] [facility] Calcium.ionized (Bld) [Mass/Vol] 1.29 mmol/L 1.08 - 1.30 mmol/L [facility] Calcium.ionized adjusted to pH 7.4 (BldA) [Moles/Vol] 1.16 mmol/L 1.08 - 1.30 mmol/L [facility] Carboxyhemoglobin (BldV) [Mass fraction] 0.7 % 0.0 - 2.0 % [facility] Comment on above: Carboxyhemoglobin Re ference Range for Smokers: 2.0-8.0% CO2 (BldV) [Partial pressure] 74 mm[Hg] High [facility] Glucose [Mass/Vol] 90 mg/dL 60 - 105 mg/dL [facility] HCO3 (Bld) [Moles/Vol] 29 mmol/L High 24 - 28 mmol/L [facility] Hematocrit (Bld) [Volume fraction] 38.1 % 36.0 - 46.0 % [facility] Hemoglobin (Bld) [Mass/Vol] 12.4 g/dL 11.5 - 15.5 g/dL [facility] Interpretation and review of laboratory results Abnormal [facility] Lactate [Moles/Vol] 1.3 mmol/L 0.5 - 2. 2 mmol/L [facility] Liters 3 Liters/min [facility] Methemoglobin (Bld) [Mass fraction] 0.7 % 0.0 - 1.5 % [facility] O2 Therapy NC = Nasal Cannula [facility] Comment on above: 3L Oxygen (BldV) [Partial pressure] 16 mm[Hg] Low [facility] Oxygen saturation in Venous blood 13 % Low 60 - 85 % [facility] Oxyhemoglobin (BldV) [Mass fraction] 12 % Low 60 - 85 % [facility] pH (BldV) 7.22 [pH] Low 7.32 - 7.42 [facility] Potassium [Moles/Vol] 3.9 mmol/L 3.5 - 5.0 mmol/L [facility] Sodium [Moles/Vol] 142 mmol/L 136 - 144 mmol/L [facility] Base excess Calc (BldV) [Moles/Vol] 0 mmol/L Normal 0-2 [facility] Comment on above: Order Comment: Speci men Type: VENOUS BLOOD SPECIMENOrdering Facility: [facility] Address: [address] [place] [address] Performed By: #### 2 4344-4 ####[facility] LABIA [id number] [place] [address] [place] Body temperature 98.6 [degF] Normal [facility] Comment on above: Order Comment: Speci men Type: VENOUS BLOOD SPECIMENOrdering Facility: [facility] Address: [address] [place] [address] Performed By: #### 2 4344-4 ####[facility] LABIA [id number] [place] [address] [place] Calcium.ionized (Bld) [Mass/Vol] 1.29 mmol/L Normal 1.08-1.30 [facility] Comment on above: Order Comment: Speci men Type: VENOUS BLOOD SPECIMENOrdering Facility: [facility] Address: [address] [place] [address] Performed By: #### 2 4344-4 ####[facility] [id number] [place] [address] [place] Calcium.ionized adjusted to pH 7.4 (BldA) [Moles/Vol] 1.16 mmol/L Normal 1.08-1.30 [facility] Comment on above: Order Comment: Speci men Type: VENOUS BLOOD SPECIMENOrdering Facility: [facility] Address: [address] [place] [address] Performed By: #### 2 4344-4 ####[facility] LABIA [id number] [place] [address] [place] Carboxyhemoglobin (BldV) [Mass fraction] 0.7 % Normal 0.0-2.0 [facility] Comment on above: Order Comment: Speci men Type: VENOUS BLOOD SPECIMENOrdering Facility: [facility] Address: [address] [place] [address] Result Comment: Carb oxyhemoglobin Reference Range for Smokers: 2.0-8.0% Performed By: #### 2 4344-4 ####[facility] LABCLIA [id number] [place] [address] [place] CO2 (BldV) [Partial pressure] 74 mm[Hg] High 42-55 [facility] Comment on above: Order Comment: Speci men Type: VENOUS BLOOD SPECIMENOrdering Facility: [facility] Address: [address] [place] [address] Performed By: #### 2 4344-4 ####[facility] LABCLIA [id number] [place] [address] [place] Glucose [Mass/Vol] 90 mg/dL Normal 60-105 [facility] Comment on above: Order Comment: Speci men Type: VENOUS BLOOD SPECIMENOrdering Facility: [facility] Address: [address] [place] [address] Performed By: #### 2 4344-4 ####[facility] LABCLIA [id number] [place] [address] [place] HCO3 (Bld) [Moles/Vol] 29 mmol/L High 24-28 [facility] Comment on above: Order Comment: Speci men Type: VENOUS BLOOD SPECIMENOrdering Facility: [facility] Address: [address] [place] [address] Performed By: #### 2 4344-4 ####[facility] LABCLIA [id number] [place] [address] [place] Hematocrit (Bld) [Volume fraction] 38.1 % Normal 36.0-46.0 [facility] Comment on above: Order Comment: Speci men Type: VENOUS BLOOD SPECIMENOrdering Facility: [facility] Address: [address] [place] [address] Performed By: #### 2 4344-4 ####[facility] LABCLIA [id number] [place] [address] [place] Hemoglobin (Bld) [Mass/Vol] 12.4 g/dL Normal 11.5-15.5 [facility] Comment on above: Order Comment: Speci men Type: VENOUS BLOOD SPECIMENOrdering Facility: [facility] Address: [address] [place] [address] Performed By: #### 2 4344-4 ####[facility] LABCLIA [id number] [place] [address] [place] Lactate [Moles/Vol] 1.3 mmol/L Normal 0.5-2.2 [facility] Comment on above: Order Comment: Speci men Type: VENOUS BLOOD SPECIMENOrdering Facility: [facility] Address: [address] [place] [address] Performed By: #### 2 4344-4 ####[facility] LABCLIA [id number] [place] [address] [place] LITERS 3 Liters/min Normal [facility] Comment on above: Order Comment: Speci men Type: VENOUS BLOOD SPECIMENOrdering Facility: [facility] Address: [address] [place] [address] Performed By: #### 2 4344-4 ####[facility] LABCLIA [id number] [place] [address] [place] Methemoglobin (Bld) [Mass fraction] 0.7 % Normal 0.0-1.5 [facility] Comment on above: Order Comment: Speci men Type: VENOUS BLOOD SPECIMENOrdering Facility: [facility] Address: [address] [place] [address] Performed By: #### 2 4344-4 ####[facility] LABCLIA [id number] [place] [address] [place] O2 THERAPY NC = Nasal Cannula Normal [facility] Comment on above: Order Comment: Speci men Type: VENOUS BLOOD SPECIMENOrdering Facility: [facility] Address: [address] [place] [address] Result Comment: 3L Performed By: #### 2 4344-4 ####[facility] LABCLIA [id number] [place] [address] [place] Oxygen (BldV) [Partial pressure] 16 mm[Hg] Low 35-45 [facility] Comment on above: Order Comment: Speci men Type: VENOUS BLOOD SPECIMENOrdering Facility: [facility] Address: [address] [place] [address] Performed By: #### 2 4344-4 ####[facility] LABCLIA [id number] [place] [address] [place] Oxygen saturation in Venous blood 13 % Low 60-85 [facility] Comment on above: Order Comment: Speci men Type: VENOUS BLOOD SPECIMENOrdering Facility: [facility] Address: [address] [place] [address] Performed By: #### 2 4344-4 ####[facility] LABCLIA [id number] [place] [address] [place] Oxyhemoglobin (BldV) [Mass fraction] 12 % Low 60-85 [facility] Comment on above: Order Comment: Speci men Type: VENOUS BLOOD SPECIMENOrdering Facility: [facility] Address: [address] [place] [address] Performed By: #### 2 4344-4 ####[facility] LABCLIA [id number] [place] [address] [place] pH (BldV) 7.22 [pH] Low 7.32-7.42 [facility] Comment on above: Order Comment: Speci men Type: VENOUS BLOOD SPECIMENOrdering Facility: [facility] Address: [address] [place], [place] [id number] Performed By: #### 2 4344-4 ####[facility] LABCLIA [id number] [place] [address] [place] Potassium [Moles/Vol] 3.9 mmol/L Normal 3.5-5.0 [facility] Comment on above: Order Comment: Speci men Type: VENOUS BLOOD SPECIMENOrdering Facility: [facility] Address: [address] [place] [address] Performed By: #### 2 4344-4 ####[facility] LABCLIA [id number] [address] [facility] Sodium [Moles/Vol] 142 mmol/L Normal 136-144 [facility] Comment on above: Order Comment: Speci men Type: VENOUS BLOOD SPECIMENOrdering Facility: [facility] Address: [address] [place] [address] Performed By: #### 2 4344-4 ####[facility] LABCLIA [id number] [address] OF [place] NURSING PROGon 02-20-2024 NURSING PROG HNO ID: [id number] Author: YOANA ORLANDO RN Service: Gastroenterology Author Type: Registered Nurse Type: Nursing Progress Note Filed: 02/20/2024 14:30 Note Text: AMBULATORY PATIENT EDUCATION NOTE TOPIC: GI PROCEDURES: small bowl enteroscopy READINESS TO LEARN INSTRUCTION PROVIDED TO: Patient and family member COGNITIVE ABILITY: Alert and oriented PTED MOTIVATION TO LEARN: Interested FAMILY SUPPORT: High - Very involved in pt care IPATIENT LEARNS BEST BY: Multiple Methods FACTORS AFFECTING LEARNING: None PHYSICAL LIMITATIONS AFFECTING LEARNING: None LEARNING RESPONSE METHOD OF INSTRUCTION: Individual instruction PATIENT / FAMILY RESPONSE: Verbalizes understanding of: WORSENING CONDITION-Signs and symptoms of a worsening condition that warrant a call to the physician FOLLOW-UP PLAN: Patient instructed to call with any further issues SUPPLEMENTAL MATERIAL: Procedure Discharge Instructions REFERRAL (RECOMMENDATION): None Electronically Signed By: Yoana Orlando RN Normal [facility] NURSING PROG HNO ID: [id number] Author: REEMA LEON LPN Service: Gastroenterology Author Type: LICENSED NURSE Type: Nursing Progress Note Filed: 02/20/2024 12:43 Note Text: PRE OP LEARNING ASSESSMENT PROCEDURE/SURGERY: GI PROCEDURES: EGD READINESS TO LEARN COGNITIVE ABILITY: Alert and oriented MOTIVATION TO LEARN: Eager Interested FAMILY SUPPORT: High - Very involved in pt care PATIENT LEARNS BEST BY: Individual Instruction Verbal Instruction FACTORS AFFECTING LEARNING: None PHYSICAL LIMITATIONS AFFECTING LEARNING: None Electronically Signed By: Reema Leon LPN In Department: GASTROENTEROLOGY Normal [facility] Yudith 02-17-2024 TRANG Telephone (PULDanikaWS) SNEHA CARDENAS ([id number]) 1955 F Date Time Provider Department 02/17/24 LUNA SWARTZ During your visit today, we recorded the following information about you: Abimbola Lewis LPN 02/17/2024 11:58 AM Signed Patient recently changed insurance and her Trelegy copay went from $50 to $125. Asking if we could substitute Breztri and she believes this will be more cost effective. RX loaded. Abimbola Lewis LPN Allergies As of Date: 02/17/2024 Noted Allergy Reaction KEFLEX (CEPHALEXIN) 10/04/2005 5 - Intolerance Comments: Tachycardia, palpitations. Date Reviewed: 11/11/2023 Reviewed by: Estella Oliva LPN - Fully Assessed Reason for Visit: Medication Problem [65] Order(s):budesonide-gl ycopyr-formoterol (BREZTRI) 160-9-4.8 mcg/actuation HFA aerosol inhalerInhale 2 Puffs as instructed two times a day.Disp: 10.7 gRfl: 5 Prescriptions as of 02/20/2024 - qhytpluude-egmlsarl-of rmoterol (BREZTRI) 160-9-4.8 mcg/actuation HFA aerosol inhaler Inhale 2 Puffs as instructed two times a day. - isosorbide mononitrate ER (IMDUR) 60 mg 24 hr tablet Take 1 tablet by mouth once daily. - busPIRone (BUSPAR) 10 mg tablet Take 1 tablet by mouth two times a day. - amLODIPine (NORVASC) 5 mg tablet Take 1 tablet by mouth every morning. - pantoprazole DR (PROTONIX) 40 mg tablet Take 1 tablet by mouth two times a day before meals. - metoprolol tartrate, short acting, (LOPRESSOR) 25 mg tablet Take 1 tablet by mouth every 12 hours. - montelukast (SINGULAIR) 10 mg tablet Take 1 tablet by mouth daily at bedtime. - sucralfate (CARAFATE) 1 gram tablet TAKE 1 TABLET BY MOUTH THREE TIMES DAILY at 7 AM, 11 AM and 4 pm - fluticasone (FLONASE) 50 mcg/actuation nasal spray Use 2 Sprays in each nostril once daily. Rinse mouth after use. - ondansetron orally disintegrating (ZOFRAN ODT) 4 mg disintegrating tablet Take 1 tablet by mouth every 8 hours as needed for nausea/vomiting. - OXYGEN, HOME THERAPY, Inhale 3 L/min as instructed as directed. 3L NC continuous, up to 4L with exertion - acetaminophen (TYLENOL) 325 mg tablet Take 650 mg by mouth every 6 hours as needed. - nitroglycerin sublingual (NITROSTAT) 0.4 mg SL tablet Dissolve 0.4 mg under the tongue every 5 minutes as needed for chest pain. - polyethylene glycol 3350 (MIRALAX) 17 gram/dose powder Take 17 g by mouth as needed for constipation. Dissolve dose in 4 - 8 ounces of liquid and take as directed. - atorvastatin (LIPITOR) 40 mg tablet Take 1 tablet by mouth daily at bedtime. For cholesterol. - albuterol HFA (PROAIR HFA) 90 mcg/actuation inhaler Inhale 2 Puffs as instructed every 4 hours as needed for wheezing/shortness of breath. - ipratropium-albuterol (DUONEB) 0.5 mg-3 mg(2.5 mg base)/3 mL nebu Inhale 3 mL as instructed every 4 hours as needed for wheezing/shortness of breath. Problem List As Of Date 02/17/2024 Noted Resolved Tobacco use disorder [F17.200] 11/02/2007 02/10/2017 Essential tremor [G25.0] 11/02/2007 Other specified disorder of gallbladder [K82.8] 12/11/2007 07/20/2012 Unspecified gastritis and gastroduodenitis with*02/09/2010 07/15/2015 Blood in stool [K92.1] 02/09/2010 07/20/2012 Loss of weight [R63.4] 02/09/2010 07/20/2012 Upper GI bleed [K92.2] 02/09/2010 Acute gastritis without mention of hemorrhage [*02/09/2010 07/20/2012 Essential hypertension, benign [I10] 05/17/2011 07/15/2015 Migraine headache [G43.909] 07/15/2015 Irritable bowel syndrome [K58.9] 07/15/2015 Scoliosis [M41.9] 02/10/2017 Environmental allergies [Z91.09] History of colon polyps [Z86.010] 07/15/2015 Chronic obstructive pulmonary disease (HCC) [J4*07/25/2012 Cervical disc disorder with radiculopathy [M50.*08/15/2015 02/10/2017 DDD (degenerative disc disease), cervical [M50.*08/15/2015 02/10/2017 Primary hypertension [I10] 06/03/2016 Asthma [J45.909] 02/15/2019 Hyperlipidemia [E78.5] 02/15/2019 Age-related osteoporosis without current pathol*08/28/2021 Hypoxemia [R09.02] 05/01/2021 08/25/2023 Lung nodule [R91.1] 05/12/2021 Elevated blood pressure reading [R03.0] 05/03/2022 08/25/2023 Chronic respiratory failure with hypoxia (HCC) *11/05/2022 Duodenal ulcer [K26.9] 06/30/2023 Paroxysmal atrial fibrillation (HCC) [I48.0] 06/30/2023 Pneumonia due to infectious organism [J18.9] 06/30/2023 Anemia requiring transfusions [D64.9] 07/01/2023 Acute on chronic hypoxic respiratory failure (H*07/09/2023 08/25/2023 Empyema (HCC) [J86.9] 07/09/2023 08/25/2023 Dysphagia [R13.10] 07/09/2023 Shock, septic (HCC) [A41.9, R65.21] 07/11/2023 08/25/2023 Antibiotic-associated diarrhea [K52.1, T36.95XA]07/14/2023 Pulmonary emphysema (HCC) [J43.9] 07/19/2023 Former smoker [Z87.891] 07/19/2023 NSTEMI (non-ST elevated myocardial infarction) *07/20/2023 History of GI bleed [Z87.19] 07/20/2023 EARNEST (acute kidney injury) (more content not included)... Normal [facility] CNPNon 02-13-2024 CNPN Telephone (GASTPR) SNEHA CARDENAS ([id number]) 1955 F Date Time Provider Department 02/13/[address] [facility] During your visit today, we recorded the following information about you: Erickson Novak, RN 02/13/2024 5:06 PM Signed GI Pre-Procedure Spoke with patient: Left message- Attempted to reach the patient at the contact number that they provided [phone] (home) . 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 Failure to have a responsible adult accompany the patient to their procedure appointment prevents the use of sedation or anesthesia for their procedure; and can result in cancellation of the procedure NPO instructions were reviewed. Number to call with questions or concerns [phone] Erickson Novak RN Allergies As of Date: 02/13/2024 Noted Allergy Reaction KEFLEX (CEPHALEXIN) 10/04/2005 5 - Intolerance Comments: Tachycardia, palpitations. Date Reviewed: 11/11/2023 Reviewed by: Estella Oliva LPN - Fully Assessed Reason for Visit: Appointment [186] Prescriptions as of 02/13/2024 - isosorbide mononitrate ER (IMDUR) 60 mg 24 hr tablet Take 1 tablet by mouth once daily. - busPIRone (BUSPAR) 10 mg tablet Take 1 tablet by mouth two times a day. - amLODIPine (NORVASC) 5 mg tablet Take 1 tablet by mouth every morning. - pantoprazole DR (PROTONIX) 40 mg tablet Take 1 tablet by mouth two times a day before meals. - metoprolol tartrate, short acting, (LOPRESSOR) 25 mg tablet Take 1 tablet by mouth every 12 hours. - montelukast (SINGULAIR) 10 mg tablet Take 1 tablet by mouth daily at bedtime. - sucralfate (CARAFATE) 1 gram tablet TAKE 1 TABLET BY MOUTH THREE TIMES DAILY at 7 AM, 11 AM and 4 pm - fluticasone (FLONASE) 50 mcg/actuation nasal spray Use 2 Sprays in each nostril once daily. Rinse mouth after use. - ondansetron orally disintegrating (ZOFRAN ODT) 4 mg disintegrating tablet Take 1 tablet by mouth every 8 hours as needed for nausea/vomiting. - OXYGEN, HOME THERAPY, Inhale 3 L/min as instructed as directed. 3L NC continuous, up to 4L with exertion - acetaminophen (TYLENOL) 325 mg tablet Take 650 mg by mouth every 6 hours as needed. - nitroglycerin sublingual (NITROSTAT) 0.4 mg SL tablet Dissolve 0.4 mg under the tongue every 5 minutes as needed for chest pain. - polyethylene glycol 3350 (MIRALAX) 17 gram/dose powder Take 17 g by mouth as needed for constipation. Dissolve dose in 4 - 8 ounces of liquid and take as directed. - atorvastatin (LIPITOR) 40 mg tablet Take 1 tablet by mouth daily at bedtime. For cholesterol. - albuterol HFA (PROAIR HFA) 90 mcg/actuation inhaler Inhale 2 Puffs as instructed every 4 hours as needed for wheezing/shortness of breath. - fluticasone-umeclidin- vilanter (TRELEGY ELLIPTA) 100-62.5-25 mcg inhalation powder Inhale 1 Puff as instructed once daily. - ipratropium-albuterol (DUONEB) 0.5 mg-3 mg(2.5 mg base)/3 mL nebu Inhale 3 mL as instructed every 4 hours as needed for wheezing/shortness of breath. Problem List As Of Date 02/13/2024 Noted Resolved Tobacco use disorder [F17.200] 11/02/2007 02/10/2017 Essential tremor [G25.0] 11/02/2007 Other specified disorder of gallbladder [K82.8] 12/11/2007 07/20/2012 Unspecified gastritis and gastroduodenitis with*02/09/2010 07/15/2015 Blood in stool [K92.1] 02/09/2010 07/20/2012 Loss of weight [R63.4] 02/09/2010 07/20/2012 Upper GI bleed [K92.2] 02/09/2010 Acute gastritis without mention of hemorrhage [*02/09/2010 07/20/2012 Essential hypertension, benign [I10] 05/17/2011 07/15/2015 Migraine headache [G43.909] 07/15/2015 Irritable bowel syndrome [K58.9] 07/15/2015 Scoliosis [M41.9] 02/10/2017 Environmental allergies [Z91.09] History of colon polyps [Z86.010] 07/15/2015 Chronic obstructive pulmonary disease (HCC) [J4*07/25/2012 Cervical disc disorder with radiculopathy [M50.*08/15/2015 02/10/2017 DDD (degenerative disc disease), cervical [M50.*08/15/2015 02/10/2017 Primary hypertension [I10] 06/03/2016 Asthma [J45.909] 02/15/2019 Hyperlipidemia [E78.5] 02/15/2019 Age-related osteoporosis without current pathol*08/28/2021 Hypoxemia [R09.02] 05/01/2021 08/25/2023 Lung nodule [R91.1] 05/12/2021 Elevated blood pressure reading [R03.0] 05/03/2022 08/25/2023 Chronic respiratory failure with hypoxia (HCC) *11/05/2022 Duodenal ulcer [K26.9] 06/30/2023 Paroxysmal atrial fibrillation (HCC) [I48.0] 06/30/2023 Pneumonia due to infectious organism [J18.9] 06/30/2023 Anemia requiring transfusions [D64.9] 07/01/2023 Acute on chronic hyp (more content not included)... [facility]INTM[facility] SNEHA CARDENAS ([id number]) 1955 F Date Time Provider Department 02/09/24 JULIO DRAPER INTMWS During your visit today, we recorded the following information about you: Carol Sosa RN 02/09/2024 10:15 AM Signed Patient calls to let provider's office know that Dr. Tafoya's office will be contacting us to retrieve the Capsule Endoscopy Report completed by Dr. Antunez's office. Notified patient that results were accessible in [employer] but would wait to hear from Dr. Tafoya's office. Carol Sosa RN Allergies As of Date: 02/09/2024 Noted Allergy Reaction KEFLEX (CEPHALEXIN) 10/04/2005 5 - Intolerance Comments: Tachycardia, palpitations. Date Reviewed: 11/11/2023 Reviewed by: Estella Oliva LPN - Fully Assessed Reason for Visit: Patient Update [1234] Prescriptions as of 02/09/2024 - isosorbide mononitrate ER (IMDUR) 60 mg 24 hr tablet Take 1 tablet by mouth once daily. - busPIRone (BUSPAR) 10 mg tablet Take 1 tablet by mouth two times a day. - amLODIPine (NORVASC) 5 mg tablet Take 1 tablet by mouth every morning. - pantoprazole DR (PROTONIX) 40 mg tablet Take 1 tablet by mouth two times a day before meals. - metoprolol tartrate, short acting, (LOPRESSOR) 25 mg tablet Take 1 tablet by mouth every 12 hours. - montelukast (SINGULAIR) 10 mg tablet Take 1 tablet by mouth daily at bedtime. - sucralfate (CARAFATE) 1 gram tablet TAKE 1 TABLET BY MOUTH THREE TIMES DAILY at 7 AM, 11 AM and 4 pm - fluticasone (FLONASE) 50 mcg/actuation nasal spray Use 2 Sprays in each nostril once daily. Rinse mouth after use. - ondansetron orally disintegrating (ZOFRAN ODT) 4 mg disintegrating tablet Take 1 tablet by mouth every 8 hours as needed for nausea/vomiting. - OXYGEN, HOME THERAPY, Inhale 3 L/min as instructed as directed. 3L NC continuous, up to 4L with exertion - acetaminophen (TYLENOL) 325 mg tablet Take 650 mg by mouth every 6 hours as needed. - nitroglycerin sublingual (NITROSTAT) 0.4 mg SL tablet Dissolve 0.4 mg under the tongue every 5 minutes as needed for chest pain. - polyethylene glycol 3350 (MIRALAX) 17 gram/dose powder Take 17 g by mouth as needed for constipation. Dissolve dose in 4 - 8 ounces of liquid and take as directed. - atorvastatin (LIPITOR) 40 mg tablet Take 1 tablet by mouth daily at bedtime. For cholesterol. - albuterol HFA (PROAIR HFA) 90 mcg/actuation inhaler Inhale 2 Puffs as instructed every 4 hours as needed for wheezing/shortness of breath. - fluticasone-umeclidin- vilanter (TRELEGY ELLIPTA) 100-62.5-25 mcg inhalation powder Inhale 1 Puff as instructed once daily. - ipratropium-albuterol (DUONEB) 0.5 mg-3 mg(2.5 mg base)/3 mL nebu Inhale 3 mL as instructed every 4 hours as needed for wheezing/shortness of breath. Problem List As Of Date 02/09/2024 Noted Resolved Tobacco use disorder [F17.200] 11/02/2007 02/10/2017 Essential tremor [G25.0] 11/02/2007 Other specified disorder of gallbladder [K82.8] 12/11/2007 07/20/2012 Unspecified gastritis and gastroduodenitis with*02/09/2010 07/15/2015 Blood in stool [K92.1] 02/09/2010 07/20/2012 Loss of weight [R63.4] 02/09/2010 07/20/2012 Upper GI bleed [K92.2] 02/09/2010 Acute gastritis without mention of hemorrhage [*02/09/2010 07/20/2012 Essential hypertension, benign [I10] 05/17/2011 07/15/2015 Migraine headache [G43.909] 07/15/2015 Irritable bowel syndrome [K58.9] 07/15/2015 Scoliosis [M41.9] 02/10/2017 Environmental allergies [Z91.09] History of colon polyps [Z86.010] 07/15/2015 Chronic obstructive pulmonary disease (HCC) [J4*07/25/2012 Cervical disc disorder with radiculopathy [M50.*08/15/2015 02/10/2017 DDD (degenerative disc disease), cervical [M50.*08/15/2015 02/10/2017 Primary hypertension [I10] 06/03/2016 Asthma [J45.909] 02/15/2019 Hyperlipidemia [E78.5] 02/15/2019 Age-related osteoporosis without current pathol*08/28/2021 Hypoxemia [R09.02] 05/01/2021 08/25/2023 Lung nodule [R91.1] 05/12/2021 Elevated blood pressure reading [R03.0] 05/03/2022 08/25/2023 Chronic respiratory failure with hypoxia (HCC) *11/05/2022 Duodenal ulcer [K26.9] 06/30/2023 Paroxysmal atrial fibrillation (HCC) [I48.0] 06/30/2023 Pneumonia due to infectious organism [J18.9] 06/30/2023 Anemia requiring transfusions [D64.9] 07/01/2023 Acute on chronic hypoxic respiratory failure (H*07/09/2023 08/25/2023 Empyema (HCC) [J86.9] 07/09/2023 08/25/2023 Dysphagia [R13.10] 07/09/2023 Shock, septic (HCC) [A41.9, R65.21] 07/11/2023 08/25/2023 Antibiotic-associated diarrhea [K52.1, T36.95XA]07/14/2023 Pulmonary emphysema (HCC) [J43.9] 07/19/2023 Former smoker [Z87.891] 07/19/2023 NSTEMI (non-ST elevated myocardial infarction) *07/20/2023 History of GI bleed [Z87.19] 07/20/2023 EARNEST (acute kidney injury) (HCC) [N17.9] 07/20/2023 08/25/2023 Elevated troponin [R79.89] 07/20/2023 (more content not included)... Normal [facility] CNPNon 01-13-2024 CNPN Telephone (INTMWS) SNEHA CARDENAS ([id number]) 1955 F Date Time Provider Department 01/13/24 JULIO DRAPER INTMWS During your visit today, we recorded the following information about you: Danika Peterson RN 01/13/2024 9:27 AM Signed Fadumo, from [facility], phoned to verify pcp fax number. Confirmed. Reports she is faxing forms to pcp today, and they can only be filled out by doctor. Ericka Christopher LPN 01/16/2024 4:02 PM Signed Called them back at 140 pm. They were to fax this again. Michelle Griffin LPN 01/24/2024 4:09 PM Signed Patient calling the fax is going to [facility], if you do not have the number can not get it. Asked if they could just fax it to [phone]. She will try to tell them to do that or might have to have it sent to her email and she upload it to her my chart. Franky Muro MA 01/31/2024 7:53 AM Signed Fax stamp on form notes this was done 01/29. Allergies As of Date: 01/13/2024 Noted Allergy Reaction KEFLEX (CEPHALEXIN) 10/04/2005 5 - Intolerance Comments: Tachycardia, palpitations. Date Reviewed: 11/11/2023 Reviewed by: Estella Oliva LPN - Fully Assessed Reason for Visit: [facility] form [Other] Prescriptions as of 01/31/2024 - isosorbide mononitrate ER (IMDUR) 60 mg 24 hr tablet Take 1 tablet by mouth once daily. - busPIRone (BUSPAR) 10 mg tablet Take 1 tablet by mouth two times a day. - amLODIPine (NORVASC) 5 mg tablet Take 1 tablet by mouth every morning. - pantoprazole DR (PROTONIX) 40 mg tablet Take 1 tablet by mouth two times a day before meals. - metoprolol tartrate, short acting, (LOPRESSOR) 25 mg tablet Take 1 tablet by mouth every 12 hours. - montelukast (SINGULAIR) 10 mg tablet Take 1 tablet by mouth daily at bedtime. - sucralfate (CARAFATE) 1 gram tablet TAKE 1 TABLET BY MOUTH THREE TIMES DAILY at 7 AM, 11 AM and 4 pm - fluticasone (FLONASE) 50 mcg/actuation nasal spray Use 2 Sprays in each nostril once daily. Rinse mouth after use. - ondansetron orally disintegrating (ZOFRAN ODT) 4 mg disintegrating tablet Take 1 tablet by mouth every 8 hours as needed for nausea/vomiting. - OXYGEN, HOME THERAPY, Inhale 3 L/min as instructed as directed. 3L NC continuous, up to 4L with exertion - acetaminophen (TYLENOL) 325 mg tablet Take 650 mg by mouth every 6 hours as needed. - nitroglycerin sublingual (NITROSTAT) 0.4 mg SL tablet Dissolve 0.4 mg under the tongue every 5 minutes as needed for chest pain. - polyethylene glycol 3350 (MIRALAX) 17 gram/dose powder Take 17 g by mouth as needed for constipation. Dissolve dose in 4 - 8 ounces of liquid and take as directed. - atorvastatin (LIPITOR) 40 mg tablet Take 1 tablet by mouth daily at bedtime. For cholesterol. - albuterol HFA (PROAIR HFA) 90 mcg/actuation inhaler Inhale 2 Puffs as instructed every 4 hours as needed for wheezing/shortness of breath. - fluticasone-umeclidin- vilanter (TRELEGY ELLIPTA) 100-62.5-25 mcg inhalation powder Inhale 1 Puff as instructed once daily. - ipratropium-albuterol (DUONEB) 0.5 mg-3 mg(2.5 mg base)/3 mL nebu Inhale 3 mL as instructed every 4 hours as needed for wheezing/shortness of breath. Problem List As Of Date 01/13/2024 Noted Resolved Tobacco use disorder [F17.200] 11/02/2007 02/10/2017 Essential tremor [G25.0] 11/02/2007 Other specified disorder of gallbladder [K82.8] 12/11/2007 07/20/2012 Unspecified gastritis and gastroduodenitis with*02/09/2010 07/15/2015 Blood in stool [K92.1] 02/09/2010 07/20/2012 Loss of weight [R63.4] 02/09/2010 07/20/2012 Upper GI bleed [K92.2] 02/09/2010 Acute gastritis without mention of hemorrhage [*02/09/2010 07/20/2012 Essential hypertension, benign [I10] 05/17/2011 07/15/2015 Migraine headache [G43.909] 07/15/2015 Irritable bowel syndrome [K58.9] 07/15/2015 Scoliosis [M41.9] 02/10/2017 Environmental allergies [Z91.09] History of colon polyps [Z86.010] 07/15/2015 Chronic obstructive pulmonary disease (HCC) [J4*07/25/2012 Cervical disc disorder with radiculopathy [M50.*08/15/2015 02/10/2017 DDD (degenerative disc disease), cervical [M50.*08/15/2015 02/10/2017 Primary hypertension [I10] 06/03/2016 Asthma [J45.909] 02/15/2019 Hyperlipidemia [E78.5] 02/15/2019 Age-related osteoporosis without current pathol*08/28/2021 Hypoxemia [R09.02] 05/01/2021 08/25/2023 Lung nodule [R91.1] 05/12/2021 Elevated blood pressure reading [R03.0] 05/03/2022 08/25/2023 Chronic respiratory failure with hypoxia (HCC) *11/05/2022 Duodenal ulcer [K26.9] 06/30/2023 Paroxysmal atrial fibrillation (HCC) [I48.0] 06/30/2023 Pneumonia due to infectious organism [J18.9] 06/30/2023 Anemia requiring transfusions [D64.9] 07/01/2023 Acute on chronic hypoxic respiratory failure (H*07/09/2023 08/25/2023 Empyema (HCC) [J86.9] 07/09/2023 08/25/2023 Dysphagia [R13.10] 07/09/2023 Shock, septic (HCC) [A41.9, R65.21] (more content not included)... Normal [facility] CNPNon 01-11-2024 CNPN Telephone (INTMWS) SNEHA CARDENAS ([id number]) 1955 F Date Time Provider Department 01/11/24 JULIO DRAPER INTMWS During your visit today, we recorded the following information about you: Saumya Sheth RN 01/11/2024 2:45 PM Signed Patient calling to ask if PCP has received Disability Senior Living forms? She says they were sent about one week ago. Saumya Sheth, Ericka Maher LPN 01/12/2024 2:40 PM Signed Not that I'm aware of. To pcp to see if he has rec'd any. Bette Segura 01/12/2024 4:23 PM Signed We received a [facility] Endoscopy Report from [facility] in [place]. Communications have been uploaded to the patients chart. Thanks, Julio Tapia MD 01/13/2024 12:54 PM Signed I am not aware of any newer disability forms. Ericka Christopher LPN 01/13/2024 1:24 PM Signed Here's another encounter from [facility]. Forms are coming today. Nothing rec'd at this time. Ericka Christopher LPN 01/16/2024 1:47 PM Signed Called [facility] from other encounter. Still nothing rec'd. They say they will fax again. Fax number was verified. Ericka Christopher LPN 01/17/2024 2:49 PM Signed This was still not rec'd. Phone pt and all reviewed. She will call [employer] [facility]. Allergies As of Date: 01/11/2024 Noted Allergy Reaction KEFLEX (CEPHALEXIN) 10/04/2005 5 - Intolerance Comments: Tachycardia, palpitations. Date Reviewed: 11/11/2023 Reviewed by: Estella Oliva LPN - Fully Assessed Reason for Visit: Forms [913] Prescriptions as of 01/17/2024 - isosorbide mononitrate ER (IMDUR) 60 mg 24 hr tablet Take 1 tablet by mouth once daily. - busPIRone (BUSPAR) 10 mg tablet Take 1 tablet by mouth two times a day. - amLODIPine (NORVASC) 5 mg tablet Take 1 tablet by mouth every morning. - pantoprazole DR (PROTONIX) 40 mg tablet Take 1 tablet by mouth two times a day before meals. - metoprolol tartrate, short acting, (LOPRESSOR) 25 mg tablet Take 1 tablet by mouth every 12 hours. - montelukast (SINGULAIR) 10 mg tablet Take 1 tablet by mouth daily at bedtime. - sucralfate (CARAFATE) 1 gram tablet TAKE 1 TABLET BY MOUTH THREE TIMES DAILY at 7 AM, 11 AM and 4 pm - fluticasone (FLONASE) 50 mcg/actuation nasal spray Use 2 Sprays in each nostril once daily. Rinse mouth after use. - ondansetron orally disintegrating (ZOFRAN ODT) 4 mg disintegrating tablet Take 1 tablet by mouth every 8 hours as needed for nausea/vomiting. - OXYGEN, HOME THERAPY, Inhale 3 L/min as instructed as directed. 3L NC continuous, up to 4L with exertion - acetaminophen (TYLENOL) 325 mg tablet Take 650 mg by mouth every 6 hours as needed. - nitroglycerin sublingual (NITROSTAT) 0.4 mg SL tablet Dissolve 0.4 mg under the tongue every 5 minutes as needed for chest pain. - polyethylene glycol 3350 (MIRALAX) 17 gram/dose powder Take 17 g by mouth as needed for constipation. Dissolve dose in 4 - 8 ounces of liquid and take as directed. - atorvastatin (LIPITOR) 40 mg tablet Take 1 tablet by mouth daily at bedtime. For cholesterol. - albuterol HFA (PROAIR HFA) 90 mcg/actuation inhaler Inhale 2 Puffs as instructed every 4 hours as needed for wheezing/shortness of breath. - fluticasone-umeclidin- vilanter (TRELEGY ELLIPTA) 100-62.5-25 mcg inhalation powder Inhale 1 Puff as instructed once daily. - ipratropium-albuterol (DUONEB) 0.5 mg-3 mg(2.5 mg base)/3 mL nebu Inhale 3 mL as instructed every 4 hours as needed for wheezing/shortness of breath. Problem List As Of Date 01/11/2024 Noted Resolved Tobacco use disorder [F17.200] 11/02/2007 02/10/2017 Essential tremor [G25.0] 11/02/2007 Other specified disorder of gallbladder [K82.8] 12/11/2007 07/20/2012 Unspecified gastritis and gastroduodenitis with*02/09/2010 07/15/2015 Blood in stool [K92.1] 02/09/2010 07/20/2012 Loss of weight [R63.4] 02/09/2010 07/20/2012 Upper GI bleed [K92.2] 02/09/2010 Acute gastritis without mention of hemorrhage [*02/09/2010 07/20/2012 Essential hypertension, benign [I10] 05/17/2011 07/15/2015 Migraine headache [G43.909] 07/15/2015 Irritable bowel syndrome [K58.9] 07/15/2015 Scoliosis [M41.9] 02/10/2017 Environmental allergies [Z91.09] History of colon polyps [Z86.010] 07/15/2015 Chronic obstructive pulmonary disease (HCC) [J4*07/25/2012 Cervical disc disorder with radiculopathy [M50.*08/15/2015 02/10/2017 DDD (degenerative disc disease), cervical [M50.*08/15/2015 02/10/2017 Primary hypertension [I10] 06/03/2016 Asthma [J45.909] 02/15/2019 Hyperlipidemia [E78.5] 02/15/2019 Age-related osteoporosis without current pathol*08/28/2021 Hypoxemia [R09.02] 05/01/2021 08/25/2023 Lung nodule [R91.1] 05/12/2021 Elevated blood pressure reading [R03.0] 05/03/2022 08/25/2023 Chronic respiratory failure with hypoxia (HCC) *11/05/2022 Duodenal ulcer [K26.9] 06/30/2023 Paroxysmal atrial fibrillation (HCC) (more content not included)... Normal [facility] XR Chest PA and Lateralon IMPRESSION: Right lower lung mild opacity with right-sided small pleural effusion/thickening. Director Of Vocational Training: PSCB Transcribe Date/Time: Nov 03 2023 12:41P Dictated by : JASVIR WESLEY MD This examination was interpreted and the report reviewed and electronically signed by: JASVIR WESLEY MD on Nov 03 2023 12:43PM [facility] DIVISION OF RADIOLOGY * * *Final Report* * * DATE OF EXAM: Oct 31 2023 6:24PM WOX [id number] - XR CHEST 2V FRONTAL/LAT / PROCEDURE REASON: Chronic obstructive pulmonary disease with acute exacerbation (HCC) * * * * Physician Interpretation * * * * EXAMINATION: CHEST RADIOGRAPH (2 VIEW FRONTAL & LATERAL) CLINICAL HISTORY: Chronic obstructive pulmonary disease with acute exacerbation (HCC) MQ: [id number] EXAM DATE/TIME: 10/31/2023 6:24 PM COMPARISON: Chest x-ray on 08/17/2023 RESULT: Lines, tubes, and devices: Grossly no change in position of right IJ dual-lumen catheter. Lungs and pleura: Right lower lung mild patchy demonstrated, with right-sided small pleural effusion or pleural thickening. The left lung is clear. No mass lesion identified. No pneumothorax. Cardiomediastinal silhouette: Stable cardiomediastinal silhouette. Bones and soft tissues: Unremarkable. DIVISION OF RADIOLOGY Provider, Esme Heavenly Still - 11/03/2023 * * *Final Report* * * DATE OF EXAM: Oct 31 2023 6:24PM WOX [id number] - XR CHEST 2V FRONTAL/LAT / PROCEDURE REASON: Chronic obstructive pulmonary disease with acute exacerbation (HCC) * * * * Physician Interpretation * * * * EXAMINATION: CHEST RADIOGRAPH (2 VIEW FRONTAL & LATERAL) CLINICAL HISTORY: Chronic obstructive pulmonary disease with acute exacerbation (HCC) MQ: XC2_6 EXAM DATE/TIME: 10/31/2023 6:24 PM COMPARISON: Chest x-ray on 08/17/2023 RESULT: Lines, tubes, and devices: Grossly no change in position of right IJ dual-lumen catheter. Lungs and pleura: Right lower lung mild patchy demonstrated, with right-sided small pleural effusion or pleural thickening. The left lung is clear. No mass lesion identified. No pneumothorax. Cardiomediastinal silhouette: Stable cardiomediastinal silhouette. Bones and soft tissues: Unremarkable. IMPRESSION IMPRESSION: Right lower lung mild opacity with right-sided small pleural effusion/thickening. Director Of Vocational Training: PSCB Transcribe Date/Time: Nov 03 2023 12:41P Dictated by : JASVIR WESLEY MD This examination was interpreted and the report reviewed and electronically signed by: JASVIR WESLEY MD on Nov 03 2023 12:43PM EST [facility] XR Chest PA and LateralOrder ed By: Ccf Provider on 11-03-2023 [facility] XR Chest PA and Lateralon Radiology Study observation (narrative) [facility] CBC panel Auto (Bld)on 08-25 Erythrocyte distribution width (RBC) [Ratio] 15.9 % High 11.5 - 15.0 % [facility] Hematocrit (Bld) [Volume fraction] 25.8 % Low 36.0 - 46.0 % [facility] Hemoglobin (Bld) [Mass/Vol] 7.6 g/dL Low 11.5 - 15.5 g/dL [facility] MCH (RBC) [Entitic mass] 27.8 pg 26. 0 - 34.0 pg [facility] MCHC (RBC) [Mass/Vol] 29.5 g/dL Low 30.5 - 36.0 g/dL [facility] MCV (RBC) [Entitic vol] 94.5 fL 80.0 - 100.0 fL [facility] Nucleated RBC (Bld) [#/Vol] <0.01 k/uL [facility] Platelet mean volume (Bld) [Entitic vol] 10.0 fL 9.0 - 12.7 fL [facility] Platelets (Bld) [#/Vol] 371 10*3/uL 150 - 400 k/uL [facility] RBC (Bld) [#/Vol] 2.73 10*6/uL Low 3.90 - 5.2 0 m/uL [facility] WBC (Bld) [#/Vol] 10.97 10*3/uL 3.70 - 11.00 k/uL [facility] LIPID PANEL, NONFASTINGon Cholesterol [Mass/Vol] 142 mg/dL <200 mg/dL [facility] HDL Cholesterol, Nonfasting 56 mg/dL >39 mg/dL [facility] LDL Cholesterol, Nonfasting 61 mg/dL <100 mg/dL [facility] LDL/HDL Ratio, Nonfasting 1.09 mg/dL <2.54 mg/dL [facility] Non HDL Cholesterol, Nonfasting 86 mg/dL <130 mg/dL [facility] Total Chol/HDL Ratio, Nonfasting 2.54 mg/dL <5.10 mg/dL [facility] Triglycerides, Nonfasting 125 mg/dL <150 mg/dL [facility] VLDL Cholesterol, Nonfasting 25 mg/dL <30 mg/dL [facility] Progress Noteon 08-12-2023 Progress Note Subsequent visit yesterday [facility] 36on 07-23-2023 36 Name of caller requesting page: Justina Phone Number of caller: [phone] Facility requesting page: [facility] Reason for Page: Justina from [facility] Sneha Cardenas 11..56 re: Recent [place] and history of A-FIB Provider paged: Kathrine [facility] Name of paged provider: EVA Page Placed to #: S. Chat Time Page was sent or provider contacted: 7:33am Page Content: Justina from [facility]neha Cardenas 11.56 re: Recent [place] and history of A-FIB [facility] Serum or plasma trough vanco mycin levelOrdered By: Diana Santillan on 07-09-2023 Vancomycin trough [Mass/Vol] 21.0 ug/mL 5.0-15.0 [facility] Absolute lymphocyte countOrd ered By: Diana Santillan on 07-08-2023 Lymphocytes Auto (Unsp spec) [#/Vol] 0.94 10*3/uL 0.83-4.51 [facility] Basophil percentageOrdered B y: Diana Santillan on 07-08-2023 Basophil percentage 144 mg/dL 74-106 [facility] Basophil percentage 6.5 g/dL 6.4-8.2 [facility] Basophil percentage 0.50 mg/dL 0.20-1.00 [facility] Basophil percentage 142 mmol/L 136-145 [facility] Basophil percentage 4.1 mmol/L 3.5-5.1 [facility] Basophil percentage 102 mmol/L 98-107 [facility] Basophils (Bld) [#/Vol] 14.9 10*3/uL 4.4-11.0 [facility] Basophils (Bld) [#/Vol] 12.6 10*3/uL 2.0-7.7 [facility] Basophils/100 WBC (Bld) 85.0 % 47-70 [facility] Basophils/100 WBC (Bld) 0.1 % 0-5 [facility] Basophils/100 WBC (Bld) 0.5 % 0-1 [facility] Blood erythrocytes count (nu mber/volume)Ordered By: Diana Santillan on 07-08-2023 RBC (Bld) [#/Vol] 3.42 10*6/uL 4.2-5.4 [facility] Blood hemoglobin measurement (mass/volume)Ordered By: Diana Santillan on 07-08-2023 Hemoglobin (Bld) [Mass/Vol] 9.7 g/dL 12.0-15.0 [facility] Blood lymphocytes/100 leukoc ytesOrdered By: Diana Santillan on 07-08-2023 Lymphocytes/100 WBC (Bld) 6.3 % 19-41 [facility] Blood monocytes/100 leukocyt esOrdered By: Diana Santillan on 07-08-2023 Monocytes/100 WBC (Bld) 7.4 % 0-10 [facility] Blood platelet mean volumeOr dered By: Diana Santillan on 07-08-2023 Platelet mean volume (Bld) [Entitic vol] 9.6 fL 6.2-12.0 [facility] Determination of erythrocyte mean corpuscular volume (MCV)Ordered By: Diana Santillan on 07-08-2023 MCV (RBC) [Entitic vol] 95.6 fL 81-99 [facility] Hematocrit Auto (Bld) [Volum e fraction]Ordered By: Diana Santillan on 07-08-2023 Hematocrit (Bld) [Volume fraction] 32.7 % 37-47 [facility] MCHC Auto (RBC) [Mass/Vol]Or dered By: Diana Santillan on 07-08-2023 MCHC (RBC) [Mass/Vol] 29.7 g/dL 32-36 [facility] No Panel InformationOrdered By: Pao Weeks on 07-08-2023 Negative Negative [facility] No Panel InformationOrdered By: Diana Santillan on 07-08-2023 28.4 pg 27.0-32.0 [facility] 14.7 % 11.6-14.6 [facility] 51.5 fl 35.1-43.9 [facility] 0.700 % 0.0-0.9 [facility] 0 % 0-5 [facility] 43 mL/min >60 [facility] 53 mL/min >60 [facility] 36.26 ml/min [facility] 10.8 RATIO 10-20 [facility] 4.6 g/dL 2.2-4.2 [facility] 103 U/L 45-117 [facility] 8 U/L 13-56 [facility] 35.0 mmol/L 21.0-32.0 [facility] 1.37 uIU/mL 0.358-3.74 [facility] Platelets bldOrdered By: Darlene Santillan on 07-08-2023 Platelets (Bld) [#/Vol] 546 10*3/uL 150-450 [facility] Serum or plasma albumin rena urement (mass/volume)Ordered By: Diana Santillan on 07-08-2023 Albumin [Mass/Vol] 1.9 g/dL 3.2-5.0 [facility] Serum or plasma albumin/glob ulin mass ratioOrdered By: Diana Santillan on 07-08-2023 Albumin/Globulin [Mass ratio] 0.4 {ratio} 0.9-2.4 [facility] Serum or plasma calcium rena urement (mass/volume)Ordered By: Diana Santillan on 07-08-2023 Calcium [Mass/Vol] 9.1 mg/dL 8.5-10.1 [facility] Serum or plasma creatinine m easurement (mass/volume)Ordered By: Diana Santillan on 07-08-2023 Creatinine [Mass/Vol] 1.30 mg/dL 0.55-1.02 [facility] Serum or plasma urea nitroge n measurement (mass/volume)Ordered By: Diana Santillan on 07-08-2023 Urea nitrogen [Mass/Vol] 14 mg/dL 7-18 [facility] Thin prep Papanicolaou smear with manual screeningOrdered By: Diana Santillan on 07-08-2023 Thin prep Papanicolaou smear with manual screening 12 U/L 15-37 [facility] Thin prep Papanicolaou smear with manual screening 5 5-15 [facility] Absolute lymphocyte countOrd ered By: Zach Thomas on 07-07-2023 Lymphocytes Auto (Unsp spec) [#/Vol] 1.09 10*3/uL 0.83-4.51 [facility] Anaerobic cultureOrdered By: Zach Thomas on 07-07-2023 Bacteria identified Anaer cx Nom (Unsp spec) No anaerobic bacteria isolated. [facility] Bacterial body fluid culture Ordered By: Zach Thomas on 07-07-2023 Bacteria identified Cx Nom (Body fld) Culture exhibits no growth. [facility] Basophil percentageOrdered B y: Zach Thomas on 07-07-2023 Basophil percentage 0.8 mmol/L 0.4-2.0 [facility] Basophil percentage 114 mg/dL 74-106 [facility] Basophil percentage 137 mmol/L 136-145 [facility] Basophil percentage 2.7 mmol/L 3.5-5.1 [facility] Basophil percentage 94 mmol/L 98-107 [facility] Basophils (Bld) [#/Vol] 11.7 10*3/uL 4.4-11.0 [facility] Basophils (Bld) [#/Vol] 9.4 10*3/uL 2.0-7.7 [facility] Basophils/100 WBC (Bld) 80.3 % 47-70 [facility] Basophils/100 WBC (Bld) 0.1 % 0-5 [facility] Basophils/100 WBC (Bld) 0.3 % 0-1 [facility] Blood erythrocytes count (nu mber/volume)Ordered By: Zach Thomas on 07-07-2023 RBC (Bld) [#/Vol] 3.66 10*6/uL 4.2-5.4 [facility] Blood hemoglobin measurement (mass/volume)Ordered By: Zach Thomas on 07-07-2023 Hemoglobin (Bld) [Mass/Vol] 10.7 g/dL 12.0-15.0 [facility] Blood lymphocytes/100 leukoc ytesOrdered By: Zach Thomas on 07-07-2023 Lymphocytes/100 WBC (Bld) 9.3 % 19-41 [facility] Blood monocytes/100 leukocyt esOrdered By: Zach Thomas on 07-07-2023 Monocytes/100 WBC (Bld) 9.5 % 0-10 [facility] Blood platelet mean volumeOr dered By: Zach Thomas on 07-07-2023 Platelet mean volume (Bld) [Entitic vol] 9.2 fL 6.2-12.0 [facility] Body fluid appearanceOrdered By: Zach Thomas on 07-07-2023 Appearance (Body fld) CLEAR [facility] Body fluid color determinati onOrdered By: Zach Thomas on 07-07-2023 Color (Body fld) YELLOW [facility] Body fluid lactate dehydroge nase measurement (enzymatic activity/volume) by pyruvateOrdered By: Zach Thomas on 07-07-2023 LDH Pyruvate to lactate reaction (Body fld) [Catalytic activity/Vol] 876 Units/L Not Establ. [facility] Body fluid leukocytes count (number/volume)Ordered By: Zach Thomas on 07-07-2023 WBC (Body fld) [#/Vol] 9.292 10*3/uL [facility] Body fluid lymphocytes/100 l eukocytesOrdered By: Zach Thomas on 07-07-2023 Lymphocytes/100 WBC (Body fld) 31 % [facility] Body fluid macrophage countO rdered By: Zach Thomas on 07-07-2023 Macrophages (Body fld) [#/Vol] 2 % [facility] Body fluid protein measureme nt (mass/volume)Ordered By: Zach Thomas on 07-07-2023 Protein (Body fld) [Mass/Vol] 3.3 g/dL Not Establ. [facility] Body fluid segmented neutrop hils count (number/volume)Ordered By: Zach Thomas on 07-07-2023 Segmented neutrophils (Body fld) [#/Vol] 60 % [facility] Determination of erythrocyte mean corpuscular volume (MCV)Ordered By: Zach Thomas on 07-07-2023 MCV (RBC) [Entitic vol] 89.9 fL 81-99 [facility] Gram stain for investigation of transfusion reactionOrdered By: Zach Thomas on 07-07-2023 Microscopic observation Gram stain Nom (Unsp spec) [facility] Hematocrit Auto (Bld) [Volum e fraction]Ordered By: Zach Thomas on 07-07-2023 Hematocrit (Bld) [Volume fraction] 32.9 % 37-47 [facility] MCHC Auto (RBC) [Mass/Vol]Or dered By: Zach Thomas on 07-07-2023 MCHC (RBC) [Mass/Vol] 32.5 g/dL 32-36 [facility] Mononuclear cells Auto (Body fld) [#/Vol]Ordered By: Zachmaged Thomas on 07-07-2023 Mononuclear cells (Body fld) [#/Vol] 0.797 10*3/uL [facility] No Panel InformationOrdered By: Zach Thomas on 07-07-2023 No growth in 5 days. [facility] 2 /mm3 [facility] 91.4 % [facility] 8.6 % [facility] 8.495 10^3/uL [facility] May follow [facility] SEE COMMENT [facility] 7 mg/dL 40-70 [facility] Reviewed [facility] 29.2 pg 27.0-32.0 [facility] 14.4 % 11.6-14.6 [facility] 47.1 fl 35.1-43.9 [facility] 0.500 % 0.0-0.9 [facility] 0 % 0-5 [facility] 145 mL/min >60 [facility] 175 mL/min >60 [facility] 47.14 ml/min [facility] 15.3 RATIO 10-20 [facility] 13 pg/mL 3.0-54.0 [facility] 2.0 mg/dL 1.6-2.6 [facility] 37.0 mmol/L 21.0-32.0 [facility] Platelets bldOrdered By: Zach Thomas on 07-07-2023 Platelets (Bld) [#/Vol] 553 10*3/uL 150-450 [facility] Serum or plasma calcium rena urement (mass/volume)Ordered By: Zachmaged Thomas on 07-07-2023 Calcium [Mass/Vol] 9.5 mg/dL 8.5-10.1 [facility] Serum or plasma creatinine m easurement (mass/volume)Ordered By: Zach Thomas on 07-07-2023 Creatinine [Mass/Vol] 0.46 mg/dL 0.55-1.02 [facility] Serum or plasma urea nitroge n measurement (mass/volume)Ordered By: Zach Thomas on 07-07-2023 Urea nitrogen [Mass/Vol] 7 mg/dL 7-18 [facility] Specimen source identificati on of body fluidOrdered By: Zach Thomas on 07-07-2023 Specimen source Nom (Body fld) THORACENTESIS [facility] Thin prep Papanicolaou smear with manual screeningOrdered By: Zachmaged Thomas on 07-07-2023 Thin prep Papanicolaou smear with manual screening 7 % [facility] Thin prep Papanicolaou smear with manual screening 6 5-15 [facility] Total cell countOrdered By: Zach Thomas on 07-07-2023 Cells counted Molgen (Bld/Tiss) [#] 9.308 10^3/ul 0.000-0.000 [facility] XR Chest PA and Lateralon IMPRESSION: Right-sided small pleural effusion with associated lower lung atelectasis/pulmonary infiltrates. Director Of Vocational Training: JING Transcribe Date/Time: Jul 06 2023 2:57P Dictated by : JASVIR WESLEY MD This examination was interpreted and the report reviewed and electronically signed by: JASVIR WESLEY MD on Jul 06 2023 2:59PM [facility] DIVISION OF RADIOLOGY * * *Final Report* * * DATE OF EXAM: Jun 30 2023 3:08PM WOX [id number] - XR CHEST 2V FRONTAL/LAT / PROCEDURE REASON: multiple diagnoses * * * * Physician Interpretation * * * * EXAMINATION: CHEST RADIOGRAPH (2 VIEW FRONTAL & LATERAL) CLINICAL HISTORY: Multiple duodenal ulcers Parapneumonic effusion MQ: XC2_6 EXAM DATE/TIME: 06/30/2023 3:08 PM COMPARISON: Chest x-ray on 01/07/2023 RESULT: Lines, tubes, and devices: None. Lungs and pleura: Interval right-sided small pleural effusion is noted, with associated lower lung atelectasis/infiltrate s. The left lung is clear. No left-sided pleural effusion seen. No pneumothorax. Cardiomediastinal silhouette: Stable cardiomediastinal silhouette. Bones and soft tissues: There are postoperative changes in the right shoulder. DIVISION OF RADIOLOGY Provider, [facility] - 07/06/2023 * * *Final Report* * * DATE OF EXAM: Jun 30 2023 3:08PM WOX [id number] - XR CHEST 2V FRONTAL/LAT / PROCEDURE REASON: multiple diagnoses * * * * Physician Interpretation * * * * EXAMINATION: CHEST RADIOGRAPH (2 VIEW FRONTAL & LATERAL) CLINICAL HISTORY: Multiple duodenal ulcers Parapneumonic effusion MQ: XC2_6 EXAM DATE/TIME: 06/30/2023 3:08 PM COMPARISON: Chest x-ray on 01/07/2023 RESULT: Lines, tubes, and devices: None. Lungs and pleura: Interval right-sided small pleural effusion is noted, with associated lower lung atelectasis/infiltrate s. The left lung is clear. No left-sided pleural effusion seen. No pneumothorax. Cardiomediastinal silhouette: Stable cardiomediastinal silhouette. Bones and soft tissues: There are postoperative changes in the right shoulder. IMPRESSION IMPRESSION: Right-sided small pleural effusion with associated lower lung atelectasis/pulmonary infiltrates. Director Of Vocational Training: JING Transcribe Date/Time: Jul 06 2023 2:57P Dictated by : JASVIR WESLEY MD This examination was interpreted and the report reviewed and electronically signed by: JASVIR WESLEY MD on Jul 06 2023 2:59PM EST [facility] XR Chest PA and LateralOrder ed By: Ccf Provider on 07-06-2023 [facility] Absolute lymphocyte countOrd ered By: Jaime Perdomo on 07-05-2023 Lymphocytes Auto (Unsp spec) [#/Vol] 1.29 10*3/uL 0.83-4.51 [facility] Basophil percentageOrdered B y: Jaime Perdomo on 07-05-2023 Basophil percentage 0-5 SEEN /hpf 0-[address] [facility] Basophil percentage 106 mg/dL 74-106 [facility] Basophil percentage 7.3 g/dL 6.4-8.2 [facility] Basophil percentage 0.40 mg/dL 0.20-1.00 [facility] Basophil percentage 140 mmol/L 136-145 [facility] Basophil percentage 2.9 mmol/L 3.5-5.1 [facility] Basophil percentage 97 mmol/L 98-107 [facility] Basophils (Bld) [#/Vol] 9.6 10*3/uL 4.4-11.0 [facility] Basophils (Bld) [#/Vol] 7.3 10*3/uL 2.0-7.7 [facility] Basophils/100 WBC (Bld) 0.4 % 0-1 [facility] Basophils/100 WBC (Bld) 75.8 % 47-70 [facility] Basophils/100 WBC (Bld) 0.5 % 0-5 [facility] Bilirubin [Mass/Vol] 0.40 mg/dL 0.20-1.00 [facility] Comment on above: For patients on eltr ombopag therapy, use of Dimension [place] TBIL is not recommended. Chloride [Moles/Vol] 97 mmol/L 98-107 [facility] Eosinophils/100 WBC (Bld) 0.5 % 0-5 [facility] Glucose [Mass/Vol] 106 mg/dL 74-106 [facility] Comment on above: Fasting Glucose resu lt from 100 to 125 mg/dL suggests IMPAIRED HOMEOSTASIS per A.D.A. criteria. Neutrophils (Bld) [#/Vol] 7.3 10*3/uL 2.0-7.7 [facility] Neutrophils/100 WBC (Bld) 75.8 % 47-70 [facility] Potassium [Moles/Vol] 2.9 mmol/L 3.5-5.1 [facility] Protein [Mass/Vol] 7.3 g/dL 6.4-8.2 [facility] Sodium [Moles/Vol] 140 mmol/L 136-145 [facility] WBC (Bld) [#/Vol] 9.6 10*3/uL 4.4-11.0 [facility] Bilirubin Test strip Ql (U)O rdered By: Jaime Perdomo on 07-05-2023 Bilirubin Ql (U) Negative Negative [facility] Blood erythrocytes count (nu mber/volume)Ordered By: Jaime Perdomo on 07-05-2023 RBC (Bld) [#/Vol] 3.84 10*6/uL 4.2-5.4 [facility] Blood hemoglobin measurement (mass/volume)Ordered By: Jaime Perdomo on 07-05-2023 Hemoglobin (Bld) [Mass/Vol] 11.0 g/dL 12.0-15.0 [facility] Blood lymphocytes/100 leukoc ytesOrdered By: Jaime Perdomo on 07-05-2023 Lymphocytes/100 WBC (Bld) 13.4 % 19-41 [facility] Blood monocytes/100 leukocyt esOrdered By: Jaime Perdomo on 07-05-2023 Monocytes/100 WBC (Bld) 9.2 % 0-10 [facility] Blood platelet mean volumeOr dered By: Jaime Perdomo on 07-05-2023 Platelet mean volume (Bld) [Entitic vol] 9.3 fL 6.2-12.0 [facility] Determination of erythrocyte mean corpuscular volume (MCV)Ordered By: Jaime Perdomo on 07-05-2023 MCV (RBC) [Entitic vol] 90.4 fL 81-99 [facility] Hematocrit Auto (Bld) [Volum e fraction]Ordered By: Jaime Perdomo on 07-05-2023 Hematocrit (Bld) [Volume fraction] 34.7 % 37-47 [facility] INR in Blood by Coagulation assayOrdered By: Jaime Perdomo on 07-05-2023 INR Coag (Bld) [Relative time] 1.1 {INR} [facility] Ketones Test strip Ql (U)Ord ered By: Jaime Perdomo on 07-05-2023 Ketones Ql (U) 15 mg/dl Negative [facility] Laboratory - Chemistry and C hemistry - challengeOrdered By: Jaime Perdomo on 07-05-2023 ALP [Catalytic activity/Vol] 117 U/L 45-117 [facility] ALT [Catalytic activity/Vol] 10 U/L 13-56 [facility] CO2 [Moles/Vol] 35.0 mmol/L 21.0-32.0 [facility] Globulin (S) [Mass/Vol] 4.9 g/dL 2.2-4.2 [facility] Lipase [Catalytic activity/Vol] 24 U/L 13-75 [facility] Comment on above: Please note:LIPASE r evised reference range effective 22. New Lipase methodology. Expected to produce lower values than the previous assay method. NEW Reference Range: 13 - 75 U/L Urea nitrogen/Creatinine [Mass ratio] 11.9 mg/mg 10-20 [facility] Laboratory - CoagulationOrde red By: Jaime Perdomo on 07-05-2023 PT Coag (PPP) [Time] 14.5 s 11.7-14.9 [facility] Laboratory - Hematology and Cell countsOrdered By: Jaime Perdomo on 07-05-2023 Erythrocyte distribution width (RBC) [Entitic vol] 47.7 fL 35.1-43.9 [facility] Erythrocyte distribution width (RBC) [Ratio] 14.5 % 11.6-14.6 [facility] Immature granulocytes/100 WBC (Bld) 0.700 % 0.0-0.9 [facility] Comment on above: IG% - Immature Granu locytes (promyelocytes, myelocytes and metamyelocytes) > 1% indicates that a LEFT SHIFT is Present. MCH (RBC) [Entitic mass] 28.6 pg 27.0-32.0 [facility] Nucleated RBC/100 WBC (Bld) [Ratio] 0 % 0-5 [facility] MCHC Auto (RBC) [Mass/Vol]Or dered By: Jaime Perdomo on 07-05-2023 MCHC (RBC) [Mass/Vol] 31.7 g/dL 32-36 [facility] Mucus LM Ql (Urine sed)Order ed By: Jaime Perdomo on 07-05-2023 Mucus Ql (Urine sed) 1+ /hpf [facility] Nitrite Test strip Ql (U)Ord ered By: Jaime Perdomo on 07-05-2023 Nitrite Ql (U) Negative Negative [facility] No Panel InformationOrdered By: Jaime Perdomo on 07-05-2023 14.5 SECONDS 11.7-14.9 [facility] Estimated Creatinine Clearance Calc 47.14 ml/min [facility] Estimated GFR (MDRD) Amer 156 mL/min >60 [facility] Comment on above: GFR Calc Estimated GFR (MDRD) Non-Af Amer 129 mL/min >60 [facility] Comment on above: Non- GFR Calc 28.6 pg 27.0-32.0 [facility] 14.5 % 11.6-14.6 [facility] 47.7 fl 35.1-43.9 [facility] 0.700 % 0.0-0.9 [facility] 0 % 0-5 [facility] 129 mL/min >60 [facility] 156 mL/min >60 [facility] 47.14 ml/min [facility] 11.9 RATIO 10-20 [facility] 4.9 g/dL 2.2-4.2 [facility] 24 U/L 13-75 [facility] 117 U/L 45-117 [facility] 10 U/L 13-56 [facility] 35.0 mmol/L 21.0-32.0 [facility] Platelets bldOrdered By: Steven Perdomo on 07-05-2023 Platelets (Bld) [#/Vol] 578 10*3/uL 150-450 [facility] Protein Test strip Ql (U)Ord ered By: Jaime Perdomo on 07-05-2023 Protein Ql (U) 30 mg/dl Negative [facility] Serum or plasma albumin rena urement (mass/volume)Ordered By: Jaime Perdomo on 07-05-2023 Albumin [Mass/Vol] 2.4 g/dL 3.2-5.0 [facility] Serum or plasma albumin/glob ulin mass ratioOrdered By: Jaime Perdomo on 07-05-2023 Albumin/Globulin [Mass ratio] 0.5 {ratio} 0.9-2.4 [facility] Serum or plasma calcium rena urement (mass/volume)Ordered By: Jaime Perdomo on 07-05-2023 Calcium [Mass/Vol] 8.8 mg/dL 8.5-10.1 [facility] Serum or plasma creatinine m easurement (mass/volume)Ordered By: Jaime Perdomo on 07-05-2023 Creatinine [Mass/Vol] 0.50 mg/dL 0.55-1.02 [facility] Comment on above: The validity of the calculated GFR & GFRAA in patients over 70 years has not been determined. Clinical correlation is essential. Serum or plasma urea nitroge n measurement (mass/volume)Ordered By: Jaime Perdomo on 07-05-2023 Urea nitrogen [Mass/Vol] 6 mg/dL 7-18 [facility] Squamous epithelial cells de tection in urine sediment by light microscopyOrdered By: Jaime Perdomo on 07-05-2023 Epithelial cells.squamous LM Ql (Urine sed) 0-5 SEEN /hpf 5-10 [facility] Thin prep Papanicolaou smear with manual screeningOrdered By: Jaime Perdomo on 07-05-2023 Thin prep Papanicolaou smear with manual screening 12 U/L 15-37 [facility] Thin prep Papanicolaou smear with manual screening 8 5-15 [facility] Urine blood detectionOrdered By: Jaime Perdomo on 07-05-2023 RBC Ql (U) 150 /ul Negative [facility] RBC Ql (U) 0-5 SEEN /hpf 0-5 [facility] Urine clarityOrdered By: Steven Perdomo on 07-05-2023 Clarity (U) Clear Clear [facility] Urine color determinationOrd ered By: Jaime Perdomo on 07-05-2023 Color (U) Yellow Yellow [facility] Urine glucose detectionOrder ed By: Jaime Perdomo on 07-05-2023 Glucose Ql (U) Normal mg/dl Normal [facility] Urine leukocyte esterase det ection by dipstickOrdered By: Jaime Perdomo on 07-05-2023 Leukocyte esterase Test strip Ql (U) Negative Negative [facility] Urine pHOrdered By: Jaime hinson on 07-05-2023 pH (U) 6.0 [pH] 5.0 - 8.0 [facility] Urine sediment bacteria coun t by microscopy (number/high power field)Ordered By: Jaime Perdomo on 07-05-2023 Bacteria LM.HPF (Urine sed) [#/Area] 0 /[HPF] None Seen [facility] Urine specific gravity measu rementOrdered By: Jaime Perdomo on 07-05-2023 Specific gravity (U) [Rel density] 1.010 1.002-1.030 [facility] Urobilinogen Auto test strip Ql (U)Ordered By: Jaime Perdomo on 07-05-2023 Urobilinogen Ql (U) Normal mg/dl Normal [facility] XR Chest PA and Lateralon Radiology Study observation (narrative) Marleny mckeon [facility] Absolute lymphocyte countOrd ered By: Td Pillai on 06-23-2023 Lymphocytes Auto (Unsp spec) [#/Vol] 1.25 10*3/uL 0.83-4.51 [facility] Basophil percentageOrdered B y: Td Pillai on 06-23-2023 Basophil percentage 74 mg/dL 74-106 [facility] Basophil percentage 139 mmol/L 136-145 [facility] Basophil percentage 3.4 mmol/L 3.5-5.1 [facility] Basophil percentage 102 mmol/L 98-107 [facility] Basophils (Bld) [#/Vol] 8.0 10*3/uL 4.4-11.0 [facility] Basophils (Bld) [#/Vol] 5.6 10*3/uL 2.0-7.7 [facility] Basophils/100 WBC (Bld) 0.5 % 0-1 [facility] Basophils/100 WBC (Bld) 70.0 % 47-70 [facility] Basophils/100 WBC (Bld) 6.5 % 0-5 [facility] Chloride [Moles/Vol] 102 mmol/L 98-107 [facility] Eosinophils/100 WBC (Bld) 6.5 % 0-5 [facility] Glucose [Mass/Vol] 74 mg/dL 74-106 [facility] Neutrophils (Bld) [#/Vol] 5.6 10*3/uL 2.0-7.7 [facility] Neutrophils/100 WBC (Bld) 70.0 % 47-70 [facility] Potassium [Moles/Vol] 3.4 mmol/L 3.5-5.1 [facility] Sodium [Moles/Vol] 139 mmol/L 136-145 [facility] WBC (Bld) [#/Vol] 8.0 10*3/uL 4.4-11.0 [facility] Blood erythrocytes count (nu mber/volume)Ordered By: Td Pillai on 06-23-2023 RBC (Bld) [#/Vol] 3.44 10*6/uL 4.2-5.4 [facility] Blood hemoglobin measurement (mass/volume)Ordered By: Td Pillai on 06-23-2023 Hemoglobin (Bld) [Mass/Vol] 10.0 g/dL 12.0-15.0 [facility] Blood lymphocytes/100 leukoc ytesOrdered By: Td Pillai on 06-23-2023 Lymphocytes/100 WBC (Bld) 15.7 % 19-41 [facility] Blood monocytes/100 leukocyt esOrdered By: Td Pillai on 06-23-2023 Monocytes/100 WBC (Bld) 7.0 % 0-10 [facility] Blood platelet mean volumeOr dered By: Td Pillai on 06-23-2023 Platelet mean volume (Bld) [Entitic vol] 9.7 fL 6.2-12.0 [facility] Determination of erythrocyte mean corpuscular volume (MCV)Ordered By: Td Pillai on 06-23-2023 MCV (RBC) [Entitic vol] 93.3 fL 81-99 [facility] Hematocrit Auto (Bld) [Volum e fraction]Ordered By: Td Pillai on 06-23-2023 Hematocrit (Bld) [Volume fraction] 32.1 % 37-47 [facility] Laboratory - Chemistry and C hemistry - challengeOrdered By: Td Pillai on 06-23-2023 CO2 [Moles/Vol] 35.0 mmol/L 21.0-32.0 [facility] Urea nitrogen/Creatinine [Mass ratio] 12.4 mg/mg 10-20 [facility] Laboratory - Hematology and Cell countsOrdered By: Td Pillai on 06-23-2023 Erythrocyte distribution width (RBC) [Entitic vol] 53.4 fL 35.1-43.9 [facility] Erythrocyte distribution width (RBC) [Ratio] 16.3 % 11.6-14.6 [facility] Immature granulocytes/100 WBC (Bld) 0.300 % 0.0-0.9 [facility] Comment on above: IG% - Immature Granu locytes (promyelocytes, myelocytes and metamyelocytes) > 1% indicates that a LEFT SHIFT is Present. MCH (RBC) [Entitic mass] 29.1 pg 27.0-32.0 [facility] Nucleated RBC/100 WBC (Bld) [Ratio] 0 % 0-5 [facility] MCHC Auto (RBC) [Mass/Vol]Or dered By: Td Pillai on 06-23-2023 MCHC (RBC) [Mass/Vol] 31.2 g/dL 32-36 [facility] No Panel InformationOrdered By: Td Pillai on 06-23-2023 Estimated Creatinine Clearance Calc 47.14 ml/min [facility] Estimated GFR (MDRD) Amer 138 mL/min >60 [facility] Comment on above: GFR Calc Estimated GFR (MDRD) Non-Af Amer 114 mL/min >60 [facility] Comment on above: Non- GFR Calc 29.1 pg 27.0-32.0 [facility] 16.3 % 11.6-14.6 [facility] 53.4 fl 35.1-43.9 [facility] 0.300 % 0.0-0.9 [facility] 0 % 0-5 [facility] 114 mL/min >60 [facility] 138 mL/min >60 [facility] 47.14 ml/min [facility] 12.4 RATIO 10-20 [facility] 35.0 mmol/L 21.0-32.0 [facility] Platelets bldOrdered By: Madelaine Pillai on 06-23-2023 Platelets (Bld) [#/Vol] 226 10*3/uL 150-450 [facility] Serum or plasma calcium rena urement (mass/volume)Ordered By: Td Pillai on 06-23-2023 Calcium [Mass/Vol] 8.3 mg/dL 8.5-10.1 [facility] Serum or plasma creatinine m easurement (mass/volume)Ordered By: Td Pilali on 06-23-2023 Creatinine [Mass/Vol] 0.56 mg/dL 0.55-1.02 [facility] Comment on above: The validity of the calculated GFR & GFRAA in patients over 70 years has not been determined. Clinical correlation is essential. Serum or plasma urea nitroge n measurement (mass/volume)Ordered By: Td Pillai on 06-23-2023 Urea nitrogen [Mass/Vol] 7 mg/dL 7-18 [facility] Thin prep Papanicolaou smear with manual screeningOrdered By: Td Pillai on 06-23-2023 Thin prep Papanicolaou smear with manual screening 2 5-15 [facility] INR in Blood by Coagulation assayOrdered By: Livan Estrada on 06-21-2023 INR Coag (Bld) [Relative time] 1.1 {INR} [facility] Laboratory - CoagulationOrde red By: Livan Estrada on 06-21-2023 aPTT Coag (Bld) [Time] 23.4 s 24.1-36.[address] [facility] PT Coag (PPP) [Time] 14.5 s 11.7-14.9 [facility] No Panel InformationOrdered By: Livan Estrada on 06-21-2023 14.5 SECONDS 11.7-14.9 [facility] 23.4 Seconds 24.1-36.2 [facility] Absolute lymphocyte countOrd ered By: Guido Oliveira on 06-20-2023 Lymphocytes Auto (Unsp spec) [#/Vol] 2.72 10*3/uL 0.83-4.51 [facility] Bacteria identified Cx Nom ( U)Ordered By: Guido Oliveira on 06-20-2023 Culture, urine Yeast, not Carmel albicans [facility] Basophil percentageOrdered B y: Guido Oliveira on 06-20-2023 Basophil percentage 0-5 SEEN /hpf 0-[address] [facility] Basophil percentage 1.9 mmol/L 0.4-2.0 [facility] Lactate [Moles/Vol] 1.9 mmol/L 0.4-2.0 [facility] Basophil percentage 5.0 g/dL 6.4-8.2 [facility] Basophil percentage 0.30 mg/dL 0.20-1.00 [facility] Basophils/100 WBC (Bld) 0.5 % 0-1 [facility] Bilirubin [Mass/Vol] 0.30 mg/dL 0.20-1.00 [facility] Comment on above: For patients on eltr ombopag therapy, use of Dimension Pierson TBIL is not recommended. Chloride [Moles/Vol] 103 mmol/L 98-107 [facility] Eosinophils/100 WBC (Bld) 1.8 % 0-5 [facility] Glucose [Mass/Vol] 114 mg/dL 74-106 [facility] Comment on above: Fasting Glucose resu lt from 100 to 125 mg/dL suggests IMPAIRED HOMEOSTASIS per A.D.A. criteria. Lactate [Moles/Vol] 2.2 mmol/L 0.4-2.0 [facility] Comment on above: Critical Result(s) C alled at: 11:15:43 06/20/2023 by: Gayatri Armstrong. Results read back by same. Neutrophils (Bld) [#/Vol] 11.1 10*3/uL 2.0-7.7 [facility] Neutrophils/100 WBC (Bld) 71.4 % 47-70 [facility] Potassium [Moles/Vol] 3.4 mmol/L 3.5-5.1 [facility] Protein [Mass/Vol] 5.0 g/dL 6.4-8.2 [facility] Sodium [Moles/Vol] 140 mmol/L 136-145 [facility] WBC (Bld) [#/Vol] 15.5 10*3/uL 4.4-11.0 [facility] Bilirubin Test strip Ql (U)O rdered By: Guido Oliveira on 06-20-2023 Bilirubin Ql (U) Negative Negative [facility] Blood erythrocytes count (nu mber/volume)Ordered By: Guido Oliveira on 06-20-2023 RBC (Bld) [#/Vol] 1.55 10*6/uL 4.2-5.4 [facility] Blood hemoglobin measurement (mass/volume)Ordered By: Guido Oliveira on 06-20-2023 Hemoglobin (Bld) [Mass/Vol] 4.6 g/dL 12.0-15.0 [facility] Comment on above: CRITICAL VALUE VERIF IED. CALLED TO KAROL ROCKWELL06/20/23 1049 Brigida Trejo.RESULTS READ BACK BY SAME . Blood lymphocytes/100 leukoc ytesOrdered By: Guido Oliveira on 06-20-2023 Lymphocytes/100 WBC (Bld) 17.6 % 19-41 [facility] Blood monocytes/100 leukocyt esOrdered By: Guido Oliveira on 06-20-2023 Monocytes/100 WBC (Bld) 7.9 % 0-10 [facility] Blood platelet mean volumeOr dered By: Guido Oliveira on 06-20-2023 Platelet mean volume (Bld) [Entitic vol] 10.0 fL 6.2-12.0 [facility] Culture, urineOrdered By: Pasquale Oliveira on 06-20-2023 Bacteria identified Cx Nom (U) Yeast, not Carmel albicans [facility] Determination of erythrocyte mean corpuscular volume (MCV)Ordered By: Guido Oliveira on 06-20-2023 MCV (RBC) [Entitic vol] 98.7 fL 81-99 [facility] Comment on above: Delta: 91.4 on 06/16-0725 Hematocrit Auto (Bld) [Volum e fraction]Ordered By: Guido Oliveira on 06-20-2023 Hematocrit (Bld) [Volume fraction] 15.3 % 37-47 [facility] Ketones Test strip Ql (U)Ord ered By: Guido Oliveira on 06-20-2023 Ketones Ql (U) Negative Negative [facility] Laboratory - Chemistry and C hemistry - challengeOrdered By: Ramon Antunez on 06-20-2023 HCG ( test) Ql (U) Negative [facility] Comment on above: Very dilute urine sp ecimens, as indicated by a low specificgravity, may not contain fuels sales representative levels of hCG. If is still suspected, a first morning urinespecimen should be collected 48 hours later and tested. Laboratory - Chemistry and C hemistry - challengeOrdered By: Guido Oliveira on 06-20-2023 ALP [Catalytic activity/Vol] 54 U/L 45-117 [facility] ALT [Catalytic activity/Vol] 12 U/L 13-56 [facility] CO2 [Moles/Vol] 32.0 mmol/L 21.0-32.0 [facility] Globulin (S) [Mass/Vol] 3.0 g/dL 2.2-4.2 [facility] Urea nitrogen/Creatinine [Mass ratio] 53.0 mg/mg 10-20 [facility] Laboratory - Hematology and Cell countsOrdered By: Guido Oliveira on 06-20-2023 Erythrocyte distribution width (RBC) [Entitic vol] 52.9 fL 35.1-43.9 [facility] Erythrocyte distribution width (RBC) [Ratio] 15.5 % 11.6-14.6 [facility] Immature granulocytes/100 WBC (Bld) 0.800 % 0.0-0.9 [facility] Comment on above: IG% - Immature Granu locytes (promyelocytes, myelocytes and metamyelocytes) > 1% indicates that a LEFT SHIFT is Present. MCH (RBC) [Entitic mass] 29.7 pg 27.0-32.0 [facility] Nucleated RBC/100 WBC (Bld) [Ratio] 0 % 0-5 [facility] Laboratory - Microbiology an d Antimicrobial susceptibilityOrdered By: Guido Oliveira on 06-20-2023 Bacteria identified Cx Nom (Bld) No growth in 5 days. [facility] MCHC Auto (RBC) [Mass/Vol]Or dered By: Guido Oliveira on 06-20-2023 MCHC (RBC) [Mass/Vol] 30.1 g/dL 32-36 [facility] Mucus LM Ql (Urine sed)Order ed By: Guido Oliveira on 06-20-2023 Mucus Ql (Urine sed) 0 SEEN /hpf [facility] Nitrite Test strip Ql (U)Ord ered By: Guido Oliveira on 06-20-2023 Nitrite Ql (U) Negative Negative [facility] No Panel InformationOrdered By: Ramon Friend on 06-20-2023 Negative [facility] No Panel InformationOrdered By: Guido Oliveira on 06-20-2023 Estimated Creatinine Clearance Calc 49.12 ml/min [facility] Estimated GFR (MDRD) Amer 132 mL/min >60 [facility] Comment on above: GFR Calc Estimated GFR (MDRD) Non-Af Amer 109 mL/min >60 [facility] Comment on above: Non- GFR Calc Troponin I High Sensitivity 8 pg/mL 3.0-54.0 [facility] Comment on above: Please Note: New Vijaya t Units and Gender Specific Reference Ranges. For more information see Policy Stat Procedure [place]erson High Sensitivity Troponin (TNIH) and attachments. 3.0 g/dL 2.2-4.2 [facility] 8 pg/mL 3.0-54.0 [facility] 54 U/L 45-117 [facility] 12 U/L 13-56 [facility] No growth in 5 days. [facility] Platelets bldOrdered By: Marcela Oliveira on 06-20-2023 Platelets (Bld) [#/Vol] 459 10*3/uL 150-450 [facility] Protein Test strip Ql (U)Ord ered By: Guido Oliveira on 06-20-2023 Protein Ql (U) Negative Negative [facility] Review by pathologistOrdered By: Guido Oliveira on 06-20-2023 Pathologist review Darnell (Unsp spec) [Interp] Lulu minor [facility] Pathologist review Darnell (Unsp spec) [Interp] Reviewed [facility] Comment on above: Previous reported re sult: Lulu minor Edited by: MORRO on 06/20/23:1348Neutrophilic leukocytosis.SEVERE Normocytic anemia.Clinical correlation necessary.Patrice Quinones M.D. 06/20/23 AMENDED REPORT 06/20/23 1348 PATH REV previously reported as: Lulu minor Serum or plasma albumin rena urement (mass/volume)Ordered By: Guido Oliveira on 06-20-2023 Albumin [Mass/Vol] 2.0 g/dL 3.2-5.0 [facility] Serum or plasma albumin/glob ulin mass ratioOrdered By: Guido Oliveira on 06-20-2023 Albumin/Globulin [Mass ratio] 0.7 {ratio} 0.9-2.4 [facility] Serum or plasma calcium rena urement (mass/volume)Ordered By: Guido Oliveira on 06-20-2023 Calcium [Mass/Vol] 7.6 mg/dL 8.5-10.1 [facility] Serum or plasma creatinine m easurement (mass/volume)Ordered By: Guido Oliveira on 06-20-2023 Creatinine [Mass/Vol] 0.58 mg/dL 0.55-1.02 [facility] Comment on above: The validity of the calculated GFR & GFRAA in patients over 70 years has not been determined. Clinical correlation is essential. Serum or plasma urea nitroge n measurement (mass/volume)Ordered By: Guido Oliveira on 06-20-2023 Urea nitrogen [Mass/Vol] 31 mg/dL - [facility] Squamous epithelial cells de tection in urine sediment by light microscopyOrdered By: Guido Oliveira on 06-20-2023 Epithelial cells.squamous LM Ql (Urine sed) 10-25 SEEN /hpf 5-10 [facility] Thin prep Papanicolaou smear with manual screeningOrdered By: Guido Oliveira on 06-20-2023 Thin prep Papanicolaou smear with manual screening 13 U/L 15-37 [facility] Thin prep Papanicolaou smear with manual screening 5 5-15 [facility] Urine blood detectionOrdered By: Guido Oliveira on 06-20-2023 RBC Ql (U) Negative Negative [facility] RBC Ql (U) 0 SEEN /hpf 0-5 [facility] Urine clarityOrdered By: Marcela Oliveira on 06-20-2023 Clarity (U) Clear Clear [facility] Urine color determinationOrd ered By: Guido Oliveira on 06-20-2023 Color (U) Yellow Yellow [facility] Urine glucose detectionOrder ed By: Guido Oliveira on 06-20-2023 Glucose Ql (U) Normal mg/dl Normal [facility] Urine leukocyte esterase det ection by dipstickOrdered By: Guido Oliveira on 06-20-2023 Leukocyte esterase Test strip Ql (U) 25 /ul Negative [facility] Urine pHOrdered By: Guido hill on 06-20-2023 pH (U) 6.0 [pH] 5.0 - 8.0 [facility] Urine sediment bacteria coun t by microscopy (number/high power field)Ordered By: Guido Oliveira on 06-20-2023 Bacteria LM.HPF (Urine sed) [#/Area] 0 /[HPF] None Seen [facility] Urine sediment yeast count b y microscopy (number/high powered field)Ordered By: Guido Oliveira on 06-20-2023 Yeast LM.HPF (Urine sed) [#/Area] 1 /[HPF] None Seen [facility] Urine specific gravity measu rementOrdered By: Guido Oliveira on 06-20-2023 Specific gravity (U) [Rel density] 1.015 1.002-1.030 [facility] Urobilinogen Auto test strip Ql (U)Ordered By: Guido Oliveira on 06-20-2023 Urobilinogen Ql (U) Normal mg/dl Normal [facility] Basophil percentageOrdered B y: Robel Funk on 06-16-2023 Basophil percentage 87 mg/dL 74-106 [facility] Basophil percentage 140 mmol/L 136-145 [facility] Basophil percentage 4.3 mmol/L 3.5-5.1 [facility] Basophil percentage 103 mmol/L 98-107 [facility] Basophils (Bld) [#/Vol] 11.2 10*3/uL 4.4-11.0 [facility] Chloride [Moles/Vol] 103 mmol/L 98-107 [facility] Glucose [Mass/Vol] 87 mg/dL 74-106 [facility] Potassium [Moles/Vol] 4.3 mmol/L 3.5-5.1 [facility] Sodium [Moles/Vol] 140 mmol/L 136-145 [facility] WBC (Bld) [#/Vol] 11.2 10*3/uL 4.4-11.0 [facility] Blood erythrocytes count (nu mber/volume)Ordered By: Robel Funk on 06-16-2023 RBC (Bld) [#/Vol] 2.66 10*6/uL 4.2-5.4 [facility] Blood hemoglobin measurement (mass/volume)Ordered By: Robel Funk on 06-16-2023 Hemoglobin (Bld) [Mass/Vol] 7.6 g/dL 12.0-15.0 [facility] Blood platelet mean volumeOr dered By: Robel Funk on 06-16-2023 Platelet mean volume (Bld) [Entitic vol] 9.9 fL 6.2-12.0 [facility] Determination of erythrocyte mean corpuscular volume (MCV)Ordered By: Robel Funk on 06-16-2023 MCV (RBC) [Entitic vol] 91.4 fL 81-99 [facility] Hematocrit Auto (Bld) [Volum e fraction]Ordered By: Robel Funk on 06-16-2023 Hematocrit (Bld) [Volume fraction] 24.3 % 37-47 [facility] Laboratory - Chemistry and C hemistry - challengeOrdered By: Robel Funk on 06-16-2023 CO2 [Moles/Vol] 35.0 mmol/L 21.0-32.0 [facility] Urea nitrogen/Creatinine [Mass ratio] 23.8 mg/mg 10-20 [facility] Laboratory - Hematology and Cell countsOrdered By: Robel Funk on 06-16-2023 Erythrocyte distribution width (RBC) [Entitic vol] 45.5 fL 35.1-43.9 [facility] Erythrocyte distribution width (RBC) [Ratio] 14.2 % 11.6-14.6 [facility] MCH (RBC) [Entitic mass] 28.6 pg 27.0-32.0 [facility] MCHC Auto (RBC) [Mass/Vol]Or dered By: Robel Funk on 06-16-2023 MCHC (RBC) [Mass/Vol] 31.3 g/dL 32-36 [facility] No Panel InformationOrdered By: Robel Funk on 06-16-2023 Estimated Creatinine Clearance Calc 47.14 ml/min [facility] Estimated GFR (MDRD) Amer 157 mL/min >60 [facility] Comment on above: GFR Calc Estimated GFR (MDRD) Non-Af Amer 130 mL/min >60 [facility] Comment on above: Non- GFR Calc 28.6 pg 27.0-32.0 [facility] 14.2 % 11.6-14.6 [facility] 45.5 fl 35.1-43.9 [facility] 130 mL/min >60 [facility] 157 mL/min >60 [facility] 47.14 ml/min [facility] 23.8 RATIO 10-20 [facility] 35.0 mmol/L 21.0-32.0 [facility] Platelets bldOrdered By: Marcela Funk on 06-16-2023 Platelets (Bld) [#/Vol] 558 10*3/uL 150-450 [facility] Serum or plasma calcium rena urement (mass/volume)Ordered By: Robel Funk on 06-16-2023 Calcium [Mass/Vol] 8.2 mg/dL 8.5-10.1 [facility] Serum or plasma creatinine m easurement (mass/volume)Ordered By: Robel Funk on 06-16-2023 Creatinine [Mass/Vol] 0.50 mg/dL 0.55-1.02 [facility] Comment on above: The validity of the calculated GFR & GFRAA in patients over 70 years has not been determined. Clinical correlation is essential. Serum or plasma urea nitroge n measurement (mass/volume)Ordered By: Robel Funk on 06-16-2023 Urea nitrogen [Mass/Vol] 12 mg/dL 7-18 [facility] Thin prep Papanicolaou smear with manual screeningOrdered By: Robel Funk on 06-16-2023 Thin prep Papanicolaou smear with manual screening 2 5-15 [facility] Absolute lymphocyte countOrd ered By: Pao Weeks on 06-15-2023 Lymphocytes Auto (Unsp spec) [#/Vol] 2.10 10*3/uL 0.83-4.51 [facility] Basophil percentageOrdered B y: Pao Weeks on 06-15-2023 Basophils (Bld) [#/Vol] 9.2 10*3/uL 2.0-7.7 [facility] Basophils/100 WBC (Bld) 0.1 % 0-1 [facility] Basophils/100 WBC (Bld) 68.7 % 47-70 [facility] Basophils/100 WBC (Bld) 3.8 % 0-5 [facility] Eosinophils/100 WBC (Bld) 3.8 % 0-5 [facility] Neutrophils (Bld) [#/Vol] 9.2 10*3/uL 2.0-7.7 [facility] Neutrophils/100 WBC (Bld) 68.7 % 47-70 [facility] Blood lymphocytes/100 leukoc ytesOrdered By: Pao Weeks on 06-15-2023 Lymphocytes/100 WBC (Bld) 15.6 % 19-41 [facility] Blood monocytes/100 leukocyt esOrdered By: Pao Weeks on 06-15-2023 Monocytes/100 WBC (Bld) 10.7 % 0-10 [facility] Laboratory - Hematology and Cell countsOrdered By: Pao Weeks on 06-15-2023 Immature granulocytes/100 WBC (Bld) 1.100 % 0.0-0.9 [facility] Comment on above: IG% - Immature Granu locytes (promyelocytes, myelocytes and metamyelocytes) > 1% indicates that a LEFT SHIFT is Present. Nucleated RBC/100 WBC (Bld) [Ratio] 0 % 0-5 [facility] No Panel InformationOrdered By: [facility] Hospitalelizabeth Weeks on 06-15-2023 1.100 % 0.0-0.9 [facility] 0 % 0-5 [facility] Anaerobic cultureOrdered By: Kapil Doyle on 06-13-2023 Bacteria identified Anaer cx Nom (Unsp spec) No growth in [address] [facility] Assessment of wrist artery p atency prior to arterial punctureOrdered By: Robel Funk on 06-13-2023 Arterial patency Wrist artery --pre arterial puncture Positive [facility] Bacterial body fluid culture Ordered By: Kapil Doyle on 06-13-2023 Bacteria identified Cx Nom (Body fld) Culture exhibits no growth. [facility] Base excessOrdered By: Brittnee Funk on 06-13-2023 Base excess Calc (BldV) [Moles/Vol] 12 mmol/L -2-2 [facility] Basophil percentageOrdered B y: Robel Funk on 06-13-2023 Basophil percentage 35.4 mmol/L 22-26 [facility] Basophils/100 WBC (Bld) 96 % 95-99 [facility] Blood platelet adequacy dete ction by light microscopyOrdered By: Pao Weeks on 06-13-2023 Platelets LM Ql (Bld) [employer]D [employer] ADEQ [facility] CO2 (BldA) [Partial pressure ]Ordered By: Robel Funk on 06-13-2023 CO2 (Bld) [Partial pressure] 48.2 mm[Hg] 35-45 [facility] Gram stain for investigation of transfusion reactionOrdered By: Kapil Doyle on 06-13-2023 Microscopic observation Gram stain Nom (Unsp spec) [facility] No Panel InformationOrdered By: Robel Funk on 06-13-2023 Blood Gas Oxygen Percent 4.0 [facility] Blood Gas Sample Site L Radial [facility] Blood Gas Specimen Type ART [facility] Blood Gas Total CO2 37 mmol/L [facility] Blood Gas Vent Mode Not entered [facility] Oxygen Delivery Device Cannula [facility] ART [facility] L Radial [facility] Not entered [facility] Cannula [facility] 4.0 [facility] 37 mmol/L [facility] Oxygen (BldA) [Partial press ure]Ordered By: Robel Funk on 06-13-2023 Oxygen (Bld) [Partial pressure] 80 mmHG 75-100 [facility] Review by pathologistOrdered By: Pao Weeks on 06-13-2023 Pathologist review Darnell (Unsp spec) [Interp] Reviewed [facility] Comment on above: Previous reported re sult: Lulu minor Edited by: MORRO on 06/14/23:0730Neutrophilic leukocytosis with left shift.Normocytic anemia.Thrombocytosis.Clinical correlation necessary.Patrice Quinones M.D. 06/14/23 AMENDED REPORT 06/14/23 0730 PATH REV previously reported as: Lulu minor pH measurementOrdered By: Pasquale Funk on 06-13-2023 pH (Unsp spec) 7.47 [pH] 7.35-7.45 [facility] Laboratory - Chemistry and C hemistry - challengeOrdered By: Pao Weeks on 06-11-2023 Magnesium [Mass/Vol] 2.4 mg/dL 1.6-2.6 [facility] No Panel InformationOrdered By: Pao Weeks on 06-11-2023 2.4 mg/dL 1.6-2.6 [facility] No Panel InformationOrdered By: Td Pillai on 06-10-2023 Ionized Calcium 4.59 mg/dL 4.36-5.20 [facility] 4.59 mg/dL 4.36-5.20 [facility] Activated partial thrombopla stin time (aPTT) in platelet poor plasma by coagulation aOrdered By: Livan Estrada on 06-09-2023 aPTT Coag (PPP) [Time] 26.4 s 24.1-36.[address] [facility] INR in Blood by Coagulation assayOrdered By: Livan Estrada on 06-09-2023 INR Coag (Bld) [Relative time] 1.1 {INR} [facility] Laboratory - CoagulationOrde red By: Livan Estrada on 06-09-2023 PT Coag (PPP) [Time] 14.4 s 11.7-14.9 [facility] No Panel InformationOrdered By: Livan Estrada on 06-09-2023 14.4 SECONDS 11.7-14.9 [facility] Basophil percentageOrdered B y: Pao Weeks on 06-08-2023 Basophil percentage 212 U/L 84-246 [facility] LDH [Catalytic activity/Vol] 212 U/L 84-246 [facility] Lower GI hemoglobin IA Ql (S tl)Ordered By: Pao Weeks on 06-08-2023 Stool Occult Blood (ROSAURA) Positive [facility] Stool gastrointestinal hemoglobin detection by immunologic method Positive [facility] Blood manual differential co mment interpretation (narrative result)Ordered By: Gabby Sutherland on 06-07-2023 Manual differential comment Darnell (Bld) [Interp] SCANNED [facility] Comment on above: NEUTROPHILIA NOTED Body fluid appearanceOrdered By: Pao Weeks on 06-07-2023 Appearance (Body fld) SL CLDY [facility] Body fluid color determinati onOrdered By: Pao Weeks on 06-07-2023 Color (Body fld) YELLOW [facility] Body fluid lactate dehydroge nase measurement (enzymatic activity/volume) by pyruvateOrdered By: Pao Weeks on 06-07-2023 LDH Pyruvate to lactate reaction (Body fld) [Catalytic activity/Vol] 3968 Units/L Not Establ. [facility] Body fluid leukocytes count (number/volume)Ordered By: Pao Weeks on 06-07-2023 WBC (Body fld) [#/Vol] 1.132 10*3/uL [facility] Body fluid protein measureme nt (mass/volume)Ordered By: Pao Weeks on 06-07-2023 Protein (Body fld) [Mass/Vol] 4.1 g/dL Not Establ. [facility] Cytology report of Body flui d Cyto stainOrdered By: Pao Weeks on 06-07-2023 Cytology report Cyto stain Doc (Body fld) SEE PATHOLOGY REPORT [facility] Comment on above: Specimen submitted t o Anatomical Pathology Department for testing. Mononuclear cells Auto (Body fld) [#/Vol]Ordered By: Pao Weeks on 06-07-2023 Mononuclear cells (Body fld) [#/Vol] 0.080 10*3/uL [facility] No Panel InformationOrdered By: Pao Weeks on 06-07-2023 Body Fluid Comment 2 SEE COMMENT [facility] Body Fluid Glucose 80 mg/dL 40-70 [facility] Body Fluid Mononuclear WBCs (%) 7.1 % [facility] Body Fluid Pathologist Comment Reviewed [facility] Comment on above: Previous reported re sult: May follow Edited by: MORRO on 06/09/23:1040Negative for malignant cells.Acute inflammation Clinical correlation necessary.Patrice Quinones M.D. 06/09/23 AMENDED REPORT 06/09/23 1040 PATH COMM/BF previously reported as: May follow Body Fluid Polynuclear WBCs (#) 1.052 10^3/uL [facility] Body Fluid Polynuclear WBCs (%) 92.9 % [facility] Body Fluid RBC 471 /mm3 [facility] 471 /mm3 [facility] 92.9 % [facility] 7.1 % [facility] 1.052 10^3/uL [facility] Reviewed [facility] SEE COMMENT [facility] 80 mg/dL 40-70 [facility] Serum or plasma trough vanco mycin levelOrdered By: Adrian Nieves on 06-07-2023 Vancomycin trough [Mass/Vol] 13.4 ug/mL 5.0-15.0 [facility] Comment on above: VANCOMYCIN STANDARED DRUG THERAPY TROUGH LEVEL: 5.0 - 15.0 mg/L VANCOMYCIN HIGH INTENSITY THERAPY TROUGH LEVEL: 15.0 - 20.0 mg/L High Intensity therapy recommended for serious lifethreatening infections include:- Qudrerjnym-Cqsskzmdtpzt-Ywjizhslc (Ventilator/Healtcare Associated)-Sepsis PLEASE CONTACT PHARMACY SERVICES (#5908) FOR INTERPRETATIONOF RESULTS. Specimen source identificati on of body fluidOrdered By: Pao Weeks on 06-07-2023 Specimen source Nom (Body fld) PLEURAL FLUID [facility] Total cell countOrdered By: Pao Weeks on 06-07-2023 Cells counted Molgen (Bld/Tiss) [#] 1.132 10^3/ul 0.000-0.000 [facility] Comment on above: This is the Total Nu mber of Nucleated Cell Types in the Body Fluid. Absolute lymphocyte countOrd ered By: Gabby Sutherland on 06-06-2023 Lymphocytes Auto (Unsp spec) [#/Vol] 1.21 10*3/uL 0.83-4.51 [facility] Basophil percentageOrdered B y: Gabby Sutherland on 06-06-2023 Basophils/100 WBC (Bld) 0.5 % 0-1 [facility] Chloride [Moles/Vol] 101 mmol/L 98-107 [facility] Eosinophils/100 WBC (Bld) 0.2 % 0-5 [facility] Glucose [Mass/Vol] 134 mg/dL 74-106 [facility] Comment on above: Fasting Glucose resu lt greater than or equal to 126 mg/dL suggests DIABETES MELLITUS per A.D.A. criteria. Neutrophils (Bld) [#/Vol] 23.0 10*3/uL 2.0-7.7 [facility] Neutrophils/100 WBC (Bld) 88.9 % 47-70 [facility] Potassium [Moles/Vol] 3.6 mmol/L 3.5-5.1 [facility] Sodium [Moles/Vol] 142 mmol/L 136-145 [facility] WBC (Bld) [#/Vol] 25.9 10*3/uL 4.4-11.0 [facility] Blood erythrocytes count (nu mber/volume)Ordered By: Gabby Sutherland on 06-06-2023 RBC (Bld) [#/Vol] 3.98 10*6/uL 4.2-5.4 [facility] Blood hemoglobin measurement (mass/volume)Ordered By: Gabby Sutherland on 06-06-2023 Hemoglobin (Bld) [Mass/Vol] 11.2 g/dL 12.0-15.0 [facility] Blood lymphocytes/100 leukoc ytesOrdered By: Gabby Sutherland on 06-06-2023 Lymphocytes/100 WBC (Bld) 4.7 % 19-41 [facility] Blood manual differential co mment interpretation (narrative result)Ordered By: Gabby Sutherland on 06-06-2023 Manual differential comment Darnell (Bld) [Interp] SCANNED [facility] Comment on above: NEUTROPHILIA PRESENT Blood monocytes/100 leukocyt esOrdered By: Gabby Sutherland on 06-06-2023 Monocytes/100 WBC (Bld) 4.0 % 0-10 [facility] Blood platelet mean volumeOr dered By: Gabby Sutherland on 06-06-2023 Platelet mean volume (Bld) [Entitic vol] 10.2 fL 6.2-12.0 [facility] Determination of erythrocyte mean corpuscular volume (MCV)Ordered By: Gabby Sutherland on 06-06-2023 MCV (RBC) [Entitic vol] 91.0 fL 81-99 [facility] Hematocrit Auto (Bld) [Volum e fraction]Ordered By: Gabby Sutherland on 06-06-2023 Hematocrit (Bld) [Volume fraction] 36.2 % 37-47 [facility] Laboratory - Chemistry and C hemistry - challengeOrdered By: Gabby Sutherland on 06-06-2023 CO2 [Moles/Vol] 39.0 mmol/L 21.0-32.0 [facility] Urea nitrogen/Creatinine [Mass ratio] 56.1 mg/mg 10-20 [facility] Laboratory - Hematology and Cell countsOrdered By: Gabby Sutherland on 06-06-2023 Erythrocyte distribution width (RBC) [Entitic vol] 42.5 fL 35.1-43.9 [facility] Erythrocyte distribution width (RBC) [Ratio] 12.7 % 11.6-14.6 [facility] Immature granulocytes/100 WBC (Bld) 1.700 % 0.0-0.9 [facility] Comment on above: IG% - Immature Granu locytes (promyelocytes, myelocytes and metamyelocytes) > 1% indicates that a LEFT SHIFT is Present. MCH (RBC) [Entitic mass] 28.1 pg 27.0-32.0 [facility] Nucleated RBC/100 WBC (Bld) [Ratio] 0 % 0-5 [facility] MCHC Auto (RBC) [Mass/Vol]Or dered By: Gabby Sutherland on 06-06-2023 MCHC (RBC) [Mass/Vol] 30.9 g/dL 32-36 [facility] No Panel InformationOrdered By: Gabby Sutherland on 06-06-2023 Estimated Creatinine Clearance Calc 47.14 ml/min [facility] Estimated GFR (MDRD) Amer 127 mL/min >60 [facility] Comment on above: GFR Calc Estimated GFR (MDRD) Non-Af Amer 105 mL/min >60 [facility] Comment on above: Non- GFR Calc Platelets bldOrdered By: Crista Sutherland on 06-06-2023 Platelets (Bld) [#/Vol] 437 10*3/uL 150-450 [facility] Serum or plasma calcium rena urement (mass/volume)Ordered By: Gabby Sutherland on 06-06-2023 Calcium [Mass/Vol] 9.0 mg/dL 8.5-10.1 [facility] Serum or plasma creatinine m easurement (mass/volume)Ordered By: Gabby Sutherland on 06-06-2023 Creatinine [Mass/Vol] 0.61 mg/dL 0.55-1.02 [facility] Comment on above: The validity of the calculated GFR & GFRAA in patients over 70 years has not been determined. Clinical correlation is essential. Serum or plasma urea nitroge n measurement (mass/volume)Ordered By: Gabby Sutherland on 06-06-2023 Urea nitrogen [Mass/Vol] 34 mg/dL 7-18 [facility] Thin prep Papanicolaou smear with manual screeningOrdered By: Gabby Sutherland on 06-06-2023 Thin prep Papanicolaou smear with manual screening 2 5-15 [facility] Review by pathologistOrdered By: Gabby Sutherland on 06-05-2023 Pathologist review Darnell (Unsp spec) [Interp] May foll [facility] Serum or plasma trough vanco mycin levelOrdered By: Adrian Nieves on 06-05-2023 Vancomycin trough [Mass/Vol] 17.1 ug/mL 5.0-15.0 [facility] Comment on above: VANCOMYCIN STANDARED DRUG THERAPY TROUGH LEVEL: 5.0 - 15.0 mg/L VANCOMYCIN HIGH INTENSITY THERAPY TROUGH LEVEL: 15.0 - 20.0 mg/L High Intensity therapy recommended for serious lifethreatening infections include:- Fjxrdjpeiv-Mfsezfgoweyk-Cdzlpsnyv (Ventilator/Healtcare Associated)-Sepsis PLEASE CONTACT PHARMACY SERVICES (#3219) FOR INTERPRETATIONOF RESULTS. Base excessOrdered By: Gabby Sutherland on 06-03-2023 Base excess Calc (BldV) [Moles/Vol] 1 mmol/L -2-2 [facility] Basophil percentageOrdered B y: Gabby Sutherland on 06-03-2023 Basophil percentage 26.2 mmol/L 22-26 [facility] Basophils/100 WBC (Bld) 94 % 95-99 [facility] CO2 (BldA) [Partial pressure ]Ordered By: Gabby Sutherland on 06-03-2023 CO2 (Bld) [Partial pressure] 45.2 mm[Hg] 35-45 [facility] Laboratory - Microbiology an d Antimicrobial susceptibilityOrdered By: Adrian Nieves on 06-03-2023 SARS-CoV-2 (COVID-19) RNA FOZIA+probe Ql (Unsp spec) [facility] No Panel InformationOrdered By: Gabby Sutherland on 06-03-2023 Bedside Blood Gas PEEP [address] [facility] Blood Gas Clinical Comments 24-12 [facility] Blood Gas Oxygen Percent 28.0 [facility] Blood Gas Respiration Rate 12 [facility] Blood Gas Sample Site R Brach [facility] Blood Gas Specimen Type ART [facility] Blood Gas Tidal Volume 450.[address] [facility] Blood Gas Total CO2 28 mmol/L [facility] Blood Gas Vent Mode NIV [facility] Oxygen Delivery Device BiPAP [facility] 450.0 mL [facility] 12 [facility] 10 [facility] 24-12 [facility] Oxygen (BldA) [Partial press ure]Ordered By: Gabby Sutherland on 06-03-2023 Oxygen (Bld) [Partial pressure] 73 mmHG 75-100 [facility] pH measurementOrdered By: Renetta Sutherland on 06-03-2023 pH (Unsp spec) 7.37 [pH] 7.35-7.45 [facility] Absolute lymphocyte countOrd ered By: Mikael Swartz on 06-02-2023 Lymphocytes Auto (Unsp spec) [#/Vol] 2.18 10*3/uL 0.83-4.51 [facility] Base excessOrdered By: Remberto Swartz on 06-02-2023 Base excess Calc (BldV) [Moles/Vol] 0 mmol/L -2-2 [facility] Basophil percentageOrdered B y: Mikael Swartz on 06-02-2023 Basophil percentage 0 SEEN /hpf 0-5 [facility] Basophil percentage 26.9 mmol/L 22-26 [facility] Basophils/100 WBC (Bld) 90 % 95-99 [facility] Basophil percentage 7.9 g/dL 6.4-8.2 [facility] Basophil percentage 0.70 mg/dL 0.20-1.00 [facility] Basophil percentage 1.6 mmol/L 0.4-2.0 [facility] Basophils/100 WBC (Bld) 0.4 % 0-1 [facility] Bilirubin [Mass/Vol] 0.70 mg/dL 0.20-1.00 [facility] Comment on above: For patients on eltr ombopag therapy, use of Dimension [place] TBIL is not recommended. Chloride [Moles/Vol] 101 mmol/L 98-107 [facility] Eosinophils/100 WBC (Bld) 1.1 % 0-5 [facility] Glucose [Mass/Vol] 187 mg/dL 74-106 [facility] Comment on above: Fasting Glucose resu lt greater than or equal to 126 mg/dL suggests DIABETES MELLITUS per A.D.A. criteria. Lactate [Moles/Vol] 1.6 mmol/L 0.4-2.0 [facility] Neutrophils (Bld) [#/Vol] 20.2 10*3/uL 2.0-7.7 [facility] Neutrophils/100 WBC (Bld) 84.8 % 47-70 [facility] Potassium [Moles/Vol] 3.6 mmol/L 3.5-5.1 [facility] Protein [Mass/Vol] 7.9 g/dL 6.4-8.2 [facility] Sodium [Moles/Vol] 136 mmol/L 136-145 [facility] WBC (Bld) [#/Vol] 23.8 10*3/uL 4.4-11.0 [facility] Bilirubin Test strip Ql (U)O rdered By: Mikael Swartz on 06-02-2023 Bilirubin Ql (U) Negative Negative [facility] Blood erythrocytes count (nu mber/volume)Ordered By: Mikael Swartz on 06-02-2023 RBC (Bld) [#/Vol] 4.09 10*6/uL 4.2-5.4 [facility] Blood hemoglobin measurement (mass/volume)Ordered By: Mikael Swartz on 06-02-2023 Hemoglobin (Bld) [Mass/Vol] 11.9 g/dL 12.0-15.0 [facility] Blood lymphocytes/100 leukoc ytesOrdered By: Mikael Swartz on 06-02-2023 Lymphocytes/100 WBC (Bld) 9.2 % 19-41 [facility] Blood monocytes/100 leukocyt esOrdered By: Mikael Swartz on 06-02-2023 Monocytes/100 WBC (Bld) 3.9 % 0-10 [facility] Blood platelet mean volumeOr dered By: Mikael Swartz on 06-02-2023 Platelet mean volume (Bld) [Entitic vol] 10.0 fL 6.2-12.0 [facility] CO2 (BldA) [Partial pressure ]Ordered By: Mikael Swartz on 06-02-2023 CO2 (Bld) [Partial pressure] 62.0 mm[Hg] 35-45 [facility] Culture, urineOrdered By: Rocky Swartz on 06-02-2023 Bacteria identified Cx Nom (U) Culture exhibits no growth. [facility] Determination of erythrocyte mean corpuscular volume (MCV)Ordered By: Mikael Swartz on 06-02-2023 MCV (RBC) [Entitic vol] 90.0 fL 81-99 [facility] Hematocrit Auto (Bld) [Volum e fraction]Ordered By: Mikael Swartz on 06-02-2023 Hematocrit (Bld) [Volume fraction] 36.8 % 37-47 [facility] Hyaline casts LM.LPF (Urine sed) [#/Area]Ordered By: Mikael Swartz on 06-02-2023 Hyaline casts (Urine sed) [#/Area] 0 /[LPF] 0-5 [facility] INR in Blood by Coagulation assayOrdered By: Mikael Swartz on 06-02-2023 INR Coag (Bld) [Relative time] 1.2 {INR} [facility] Ketones Test strip Ql (U)Ord ered By: Mikael Swartz on 06-02-2023 Ketones Ql (U) 5 mg/dl Negative [facility] Laboratory - Chemistry and C hemistry - challengeOrdered By: Mikael Swartz on 06-02-2023 ALP [Catalytic activity/Vol] 112 U/L 45-117 [facility] ALT [Catalytic activity/Vol] 14 U/L 13-56 [facility] CO2 [Moles/Vol] 29.0 mmol/L 21.0-32.0 [facility] Globulin (S) [Mass/Vol] 4.9 g/dL 2.2-4.2 [facility] Urea nitrogen/Creatinine [Mass ratio] 17.3 mg/mg 10-20 [facility] Laboratory - CoagulationOrde red By: Mikael Swartz on 06-02-2023 aPTT Coag (Bld) [Time] 29.1 s 24.1-36.[address] [facility] PT Coag (PPP) [Time] 14.7 s 11.7-14.9 [facility] Laboratory - Hematology and Cell countsOrdered By: Mikael Swartz on 06-02-2023 Erythrocyte distribution width (RBC) [Entitic vol] 41.5 fL 35.1-43.9 [facility] Erythrocyte distribution width (RBC) [Ratio] 12.5 % 11.6-14.6 [facility] Immature granulocytes/100 WBC (Bld) 0.600 % 0.0-0.9 [facility] Comment on above: IG% - Immature Granu locytes (promyelocytes, myelocytes and metamyelocytes) > 1% indicates that a LEFT SHIFT is Present. MCH (RBC) [Entitic mass] 29.1 pg 27.0-32.0 [facility] Nucleated RBC/100 WBC (Bld) [Ratio] 0 % 0-5 [facility] Laboratory - Microbiology an d Antimicrobial susceptibilityOrdered By: Mikael Swartz on 06-02-2023 Bacteria identified Cx Nom (Bld) No growth in 5 days. [facility] MCHC Auto (RBC) [Mass/Vol]Or dered By: Mikael Swartz on 06-02-2023 MCHC (RBC) [Mass/Vol] 32.3 g/dL 32-36 [facility] Mucus LM Ql (Urine sed)Order ed By: Mikael Swartz on 06-02-2023 Mucus Ql (Urine sed) 2+ /hpf [facility] Nitrite Test strip Ql (U)Ord ered By: Mikael Swartz on 06-02-2023 Nitrite Ql (U) Negative Negative [facility] No Panel InformationOrdered By: Adrian Nieves on 06-02-2023 Methicillin-Resist S.aureus DNA PCR Negative Negative [facility] Negative Negative [facility] No Panel InformationOrdered By: Mikael Swartz on 06-02-2023 No growth in 5 days. [facility] Blood Gas Oxygen Percent 3.0 [facility] Blood Gas Sample Site R Brach [facility] Blood Gas Specimen Type ART [facility] Blood Gas Total CO2 29 mmol/L [facility] Blood Gas Vent Mode Not entered [facility] Oxygen Delivery Device Not entered [facility] Estimated Creatinine Clearance Calc 54.18 ml/min [facility] Estimated GFR (MDRD) Amer 84 mL/min >60 [facility] Comment on above: GFR Calc Estimated GFR (MDRD) Non-Af Amer 69 mL/min >60 [facility] Comment on above: Non- GFR Calc 4.9 g/dL 2.2-4.2 [facility] 112 U/L 45-117 [facility] 14 U/L 13-56 [facility] Oxygen (BldA) [Partial press ure]Ordered By: Mikael Swartz on 06-02-2023 Oxygen (Bld) [Partial pressure] 70 mmHG 75-100 [facility] Platelets bldOrdered By: Noa Swartz on 06-02-2023 Platelets (Bld) [#/Vol] 504 10*3/uL 150-450 [facility] Protein Test strip Ql (U)Ord ered By: Mikael Swartz on 06-02-2023 Protein Ql (U) 100 mg/dl Negative [facility] Serum or plasma albumin rena urement (mass/volume)Ordered By: Mikael Swartz on 06-02-2023 Albumin [Mass/Vol] 3.0 g/dL 3.2-5.0 [facility] Serum or plasma albumin/glob ulin mass ratioOrdered By: Mikael Swartz on 06-02-2023 Albumin/Globulin [Mass ratio] 0.6 {ratio} 0.9-2.4 [facility] Serum or plasma calcium rena urement (mass/volume)Ordered By: Mikael Swartz on 06-02-2023 Calcium [Mass/Vol] 9.4 mg/dL 8.5-10.1 [facility] Serum or plasma creatinine m easurement (mass/volume)Ordered By: Mikael Swartz on 06-02-2023 Creatinine [Mass/Vol] 0.87 mg/dL 0.55-1.02 [facility] Comment on above: The validity of the calculated GFR & GFRAA in patients over 70 years has not been determined. Clinical correlation is essential. Serum or plasma urea nitroge n measurement (mass/volume)Ordered By: Mikael Swartz on 06-02-2023 Urea nitrogen [Mass/Vol] 15 mg/dL 7-18 [facility] Squamous epithelial cells de tection in urine sediment by light microscopyOrdered By: Mikael Swartz on 06-02-2023 Epithelial cells.squamous LM Ql (Urine sed) 0-5 SEEN /hpf 5-10 [facility] Thin prep Papanicolaou smear with manual screeningOrdered By: Mikael Swartz on 06-02-2023 Thin prep Papanicolaou smear with manual screening 18 U/L 15-37 [facility] Thin prep Papanicolaou smear with manual screening 6 5-15 [facility] Urine blood detectionOrdered By: Mikael Swartz on 06-02-2023 RBC Ql (U) 150 /ul Negative [facility] RBC Ql (U) 0-5 SEEN /hpf 0-5 [facility] Urine clarityOrdered By: Noa Swartz on 06-02-2023 Clarity (U) Cloudy Clear [facility] Urine color determinationOrd ered By: Mikael Swartz on 06-02-2023 Color (U) Yellow Yellow [facility] Urine glucose detectionOrder ed By: Mikael Swartz on 06-02-2023 Glucose Ql (U) Normal mg/dl Normal [facility] Urine leukocyte esterase det ection by dipstickOrdered By: Mikael Swartz on 06-02-2023 Leukocyte esterase Test strip Ql (U) Negative Negative [facility] Urine pHOrdered By: Mikael Swartz on 06-02-2023 pH (U) 5.0 [pH] 5.0 - 8.0 [facility] Urine sediment bacteria coun t by microscopy (number/high power field)Ordered By: Mikael Swartz on 06-02-2023 Bacteria LM.HPF (Urine sed) [#/Area] 1 /[HPF] None Seen [facility] Urine specific gravity measu rementOrdered By: Mikael Swartz on 06-02-2023 Specific gravity (U) [Rel density] 1.030 1.002-1.030 [facility] Urobilinogen Auto test strip Ql (U)Ordered By: Mikael Swartz on 06-02-2023 Urobilinogen Ql (U) Normal mg/dl Normal [facility] pH measurementOrdered By: Rocky Swartz on 06-02-2023 pH (Unsp spec) 7.25 [pH] 7.35-7.45 [facility] Absolute lymphocyte countOrd ered By: Hoang Foster on 06-01-2023 Lymphocytes Auto (Unsp spec) [#/Vol] 1.05 10*3/uL 0.83-4.51 [facility] Activated partial thrombopla stin time (aPTT) in platelet poor plasma by coagulation aOrdered By: Hoang Foster on 06-01-2023 aPTT Coag (PPP) [Time] 30.9 s 24.1-36.[address] [facility] Basophil percentageOrdered B y: Hoang Foster on 06-01-2023 Basophil percentage 125 mg/dL 74-106 [facility] Basophil percentage 140 mmol[facility]L 136-145 [facility] Bas[facility] percentage 3.3 mmol/L 3.5-5.1 [facility] Basophil percentage 105 mmol/L 98-107 [facility] Basophils (Bld) [#/Vol] 13.4 10*3/uL 4.4-11.0 [facility] Basophils (Bld) [#/Vol] 10.7 10*3/uL 2.0-7.7 [facility] Basophils/100 WBC (Bld) 0.4 % 0-1 [facility] Basophils/100 WBC (Bld) 80.0 % 47-70 [facility] Basophils/100 WBC (Bld) 7.9 % 19-41 [facility] Basophils/100 WBC (Bld) 9.3 % 0-10 [facility] Basophils/100 WBC (Bld) 2.0 % 0-5 [facility] Chloride [Moles/Vol] 105 mmol/L 98-107 [facility] Eosinophils/100 WBC (Bld) 2.0 % 0-5 [facility] Glucose [Mass/Vol] 125 mg/dL 74-106 [facility] Comment on above: Fasting Glucose resu lt from 100 to 125 mg/dL suggests IMPAIRED HOMEOSTASIS per A.D.A. criteria. Lymphocytes/100 WBC (Bld) 7.9 % 19-41 [facility] Monocytes/100 WBC (Bld) 9.3 % 0-10 [facility] Neutrophils (Bld) [#/Vol] 10.7 10*3/uL 2.0-7.7 [facility] Neutrophils/100 WBC (Bld) 80.0 % 47-70 [facility] Potassium [Moles/Vol] 3.3 mmol/L 3.5-5.1 [facility] Sodium [Moles/Vol] 140 mmol/L 136-145 [facility] WBC (Bld) [#/Vol] 13.4 10*3/uL 4.4-11.0 [facility] Blood erythrocytes count (nu mber/volume)Ordered By: Hoang Foster on 06-01-2023 RBC (Bld) [#/Vol] 3.69 10*6/uL 4.2-5.4 [facility] Blood hemoglobin measurement (mass/volume)Ordered By: Hoang Foster on 06-01-2023 Hemoglobin (Bld) [Mass/Vol] 10.9 g/dL 12.0-15.0 [facility] Blood platelet mean volumeOr dered By: Hoang Foster on 06-01-2023 Platelet mean volume (Bld) [Entitic vol] 10.2 fL 6.2-12.0 [facility] Determination of erythrocyte mean corpuscular volume (MCV)Ordered By: Hoang Foster on 06-01-2023 MCV (RBC) [Entitic vol] 90.8 fL 81-99 [facility] Hematocrit Auto (Bld) [Volum e fraction]Ordered By: Hoang Foster on 06-01-2023 Hematocrit (Bld) [Volume fraction] 33.5 % 37-47 [facility] INR in Blood by Coagulation assayOrdered By: Hoang Foster on 06-01-2023 INR Coag (Bld) [Relative time] 1.0 {INR} [facility] Influenza virus A and B and SARS-CoV-2 (COVID-19) Ag panel - Upper respiratory specimOrdered By: Hoang Foster on 06-01-2023 SARS-CoV-2 (COVID-19) RNA FOZIA+probe Ql (Resp) [facility] Laboratory - Chemistry and C hemistry - challengeOrdered By: Hoang Foster on 06-01-2023 CO2 [Moles/Vol] 31.0 mmol/L 21.0-32.0 [facility] Magnesium [Mass/Vol] 2.2 mg/dL 1.6-2.6 [facility] Urea nitrogen/Creatinine [Mass ratio] 16.7 mg/mg 10-20 [facility] Laboratory - CoagulationOrde red By: Hoang Foster on 06-01-2023 PT Coag (PPP) [Time] 13.6 s 11.7-14.9 [facility] Laboratory - Hematology and Cell countsOrdered By: Hoang Foster on 06-01-2023 Erythrocyte distribution width (RBC) [Entitic vol] 40.9 fL 35.1-43.9 [facility] Erythrocyte distribution width (RBC) [Ratio] 12.3 % 11.6-14.6 [facility] Immature granulocytes/100 WBC (Bld) 0.400 % 0.0-0.9 [facility] Comment on above: IG% - Immature Granu locytes (promyelocytes, myelocytes and metamyelocytes) > 1% indicates that a LEFT SHIFT is Present. MCH (RBC) [Entitic mass] 29.5 pg 27.0-32.0 [facility] Nucleated RBC/100 WBC (Bld) [Ratio] 0 % 0-5 [facility] MCHC Auto (RBC) [Mass/Vol]Or dered By: Hoang Foster on 06-01-2023 MCHC (RBC) [Mass/Vol] 32.5 g/dL 32-36 [facility] No Panel InformationOrdered By: Hoang Foster on 06-01-2023 Estimated GFR (MDRD) Amer 95 mL/min >60 [facility] Estimated GFR (MDRD) Non-Af Amer 78 mL/min >60 [facility] 29.5 pg 27.0-32.0 [facility] 12.3 % 11.6-14.6 [facility] 40.9 fl 35.1-43.9 [facility] 0.400 % 0.0-0.9 [facility] 0 % 0-5 [facility] 13.6 SECONDS 11.7-14.9 [facility] 78 mL/min >60 [facility] 95 mL/min >60 [facility] 16.7 RATIO 10-20 [facility] 2.2 mg/dL 1.6-2.6 [facility] 31.0 mmol/L 21.0-32.0 [facility] Platelets bldOrdered By: Brant Foster on 06-01-2023 Platelets (Bld) [#/Vol] 348 10*3/uL 150-450 [facility] Serum or plasma calcium rena urement (mass/volume)Ordered By: Hoang Foster on 06-01-2023 Calcium [Mass/Vol] 8.9 mg/dL 8.5-10.1 [facility] Serum or plasma creatinine m easurement (mass/volume)Ordered By: Hoang Foster on 06-01-2023 Creatinine [Mass/Vol] 0.78 mg/dL 0.55-1.02 [facility] Comment on above: The validity of the calculated GFR & GFRAA in patients over 70 years has not been determined. Clinical correlation is essential. Serum or plasma urea nitroge n measurement (mass/volume)Ordered By: Hoang Foster on 06-01-2023 Urea nitrogen [Mass/Vol] 13 mg/dL 7-18 [facility] Thin prep Papanicolaou smear with manual screeningOrdered By: Hoang Foster on 06-01-2023 Thin prep Papanicolaou smear with manual screening 4 5-15 [facility] Upper respiratory specimen i nfluenza A virus, influenza B virus, and severe acute resOrdered By: Hoang Foster on 06-01-2023 Upper respiratory specimen influenza A virus, influenza B virus, and severe acute res [facility] XR Chest PA and Lateralon IMPRESSION: Stable exam. Hazy appearance overlying the right lower lung, felt to be related to pectus excavatum. Director Of Vocational Training: JING Transcribe Date/Time: Jan 07 2023 4:13P Dictated by : JASVIR WESLEY MD This examination was interpreted and the report reviewed and electronically signed by: JASVIR WESLEY MD on Jan 07 2023 4:17PM [facility] DIVISION OF RADIOLOGY * * *Final Report* * * DATE OF EXAM: Jan 07 2023 3:13PM WOX 5291 - XR CHEST 2V FRONTAL/LAT / PROCEDURE REASON: Pneumonia of left lower lobe due to infectious organism * * * * Physician Interpretation * * * * EXAMINATION: CHEST RADIOGRAPH (2 VIEW FRONTAL & LATERAL) CLINICAL HISTORY: Pneumonia of left lower lobe due to infectious organism MQ: XC2_6 EXAM DATE/TIME: 01/07/2023 3:13 PM COMPARISON: Chest x-ray on 11/11/2022 RESULT: Lines, tubes, and devices: None. Lungs and pleura: Stable elongated opacity along the right minor fissure. There is a focal calcification in the right lower lung. No new consolidation. No lung mass. No pleural effusion. No pneumothorax. Cardiomediastinal silhouette: Stable cardiomediastinal silhouette. Bones and soft tissues: Pectus excavatum is demonstrated. The spine shows mild degenerative changes. Status post right shoulder arthroplasty. DIVISION OF RADIOLOGY Provider, Jos[facility] - 01/07/2023 * * *Final Report* * * DATE OF EXAM: Jan 07 2023 3:13PM WOX 5291 - XR CHEST 2V FRONTAL/LAT / PROCEDURE REASON: Pneumonia of left lower lobe due to infectious organism * * * * Physician Interpretation * * * * EXAMINATION: CHEST RADIOGRAPH (2 VIEW FRONTAL & LATERAL) CLINICAL HISTORY: Pneumonia of left lower lobe due to infectious organism MQ: XC2_6 EXAM DATE/TIME: 01/07/2023 3:13 PM COMPARISON: Chest x-ray on 11/11/2022 RESULT: Lines, tubes, and devices: None. Lungs and pleura: Stable elongated opacity along the right minor fissure. There is a focal calcification in the right lower lung. No new consolidation. No lung mass. No pleural effusion. No pneumothorax. Cardiomediastinal silhouette: Stable cardiomediastinal silhouette. Bones and soft tissues: Pectus excavatum is demonstrated. The spine shows mild degenerative changes. Status post right shoulder arthroplasty. IMPRESSION IMPRESSION: Stable exam. Hazy appearance overlying the right lower lung, felt to be related to pectus excavatum. Director Of Vocational Training: PSCB Transcribe Date/Time: Jan 07 2023 4:13P Dictated by : JASVIR WESLEY MD This examination was interpreted and the report reviewed and electronically signed by: JASVIR WESLEY MD on Jan 07 2023 4:17PM EST [facility] Radiology Study observation (narrative) Marleny Radford XR Chest PA and LateralOrder ed By: [facility] Provider on 01-07-2023 [facility] Absolute lymphocyte countOrd ered By: Dr. Celaya on 12-03-2022 Lymphocytes Auto (Unsp spec) [#/Vol] 0.95 10*3/uL 0.83-4.51 [facility] Basophil percentageOrdered B y: Dr. Celaya on 12-03-2022 Basophils/100 WBC (Bld) 0.1 % 0-1 [facility] Chloride [Moles/Vol] 103 mmol/L 98-107 [facility] Eosinophils/100 WBC (Bld) 0.0 % 0-5 [facility] Glucose [Mass/Vol] 137 mg/dL 74-106 [facility] Comment on above: Fasting Glucose resu lt greater than or equal to 126 mg/dL suggests DIABETES MELLITUS per A.D.A. criteria. Neutrophils (Bld) [#/Vol] 6.2 10*3/uL 2.0-7.7 [facility] Neutrophils/100 WBC (Bld) 83.3 % 47-70 [facility] Potassium [Moles/Vol] 4.2 mmol/L 3.5-5.1 [facility] Sodium [Moles/Vol] 139 mmol/L 136-145 [facility] WBC (Bld) [#/Vol] 7.5 10*3/uL 4.4-11.0 [facility] Blood erythrocytes count (nu mber/volume)Ordered By: Dr. Celaya on 12-03-2022 RBC (Bld) [#/Vol] 3.71 10*6/uL 4.2-5.4 [facility] Blood hemoglobin measurement (mass/volume)Ordered By: Dr. Celaya on 12-03-2022 Hemoglobin (Bld) [Mass/Vol] 10.8 g/dL 12.0-15.0 [facility] Blood lymphocytes/100 leukoc ytesOrdered By: Dr. Celaya on 12-03-2022 Lymphocytes/100 WBC (Bld) 12.7 % 19-41 [facility] Blood monocytes/100 leukocyt esOrdered By: Dr. Celaya on 12-03-2022 Monocytes/100 WBC (Bld) 3.1 % 0-10 [facility] Blood platelet mean volumeOr dered By: Dr. Celaya on 12-03-2022 Platelet mean volume (Bld) [Entitic vol] 9.9 fL 6.2-12.0 [facility] Determination of erythrocyte mean corpuscular volume (MCV)Ordered By: Dr. Celaya on 12-03-2022 MCV (RBC) [Entitic vol] 90.0 fL 81-99 [facility] Hematocrit Auto (Bld) [Volum e fraction]Ordered By: Dr. Celaya on 12-03-2022 Hematocrit (Bld) [Volume fraction] 33.4 % 37-47 [facility] Laboratory - Chemistry and C hemistry - challengeOrdered By: Dr. Celaya on 12-03-2022 CO2 [Moles/Vol] 31.0 mmol/L 21.0-32.0 [facility] Urea nitrogen/Creatinine [Mass ratio] 26.3 mg/mg 10-20 [facility] Laboratory - Hematology and Cell countsOrdered By: Dr. Celaya on 12-03-2022 Erythrocyte distribution width (RBC) [Entitic vol] 42.5 fL 35.1-43.9 [facility] Erythrocyte distribution width (RBC) [Ratio] 12.9 % 11.6-14.6 [facility] Immature granulocytes/100 WBC (Bld) 0.800 % 0.0-0.9 [facility] Comment on above: IG% - Immature Granu locytes (promyelocytes, myelocytes and metamyelocytes) > 1% indicates that a LEFT SHIFT is Present. MCH (RBC) [Entitic mass] 29.1 pg 27.0-32.0 [facility] Nucleated RBC/100 WBC (Bld) [Ratio] 0 % 0-5 [facility] MCHC Auto (RBC) [Mass/Vol]Or dered By: Dr. Celaya on 12-03-2022 MCHC (RBC) [Mass/Vol] 32.3 g/dL 32-36 [facility] No Panel InformationOrdered By: Dr. Celaya on 12-03-2022 Estimated Creatinine Clearance Calc 47.79 ml/min [facility] Estimated GFR (MDRD) Amer 104 mL/min >60 [facility] Comment on above: GFR Calc Estimated GFR (MDRD) Non-Af Amer 86 mL/min >60 [facility] Comment on above: Non- GFR Calc Platelets bldOrdered By: Dr. Celaya on 12-03-2022 Platelets (Bld) [#/Vol] 273 10*3/uL 150-450 [facility] Serum or plasma calcium rena urement (mass/volume)Ordered By: Dr. Celaya on 12-03-2022 Calcium [Mass/Vol] 8.6 mg/dL 8.5-10.1 [facility] Serum or plasma creatinine m easurement (mass/volume)Ordered By: Dr. Celaya on 12-03-2022 Creatinine [Mass/Vol] 0.72 mg/dL 0.55-1.02 [facility] Comment on above: The validity of the calculated GFR & GFRAA in patients over 70 years has not been determined. Clinical correlation is essential. Serum or plasma urea nitroge n measurement (mass/volume)Ordered By: Dr. Celaya on 12-03-2022 Urea nitrogen [Mass/Vol] 19 mg/dL 7-18 [facility] Thin prep Papanicolaou smear with manual screeningOrdered By: Dr. Celaya on 12-03-2022 Thin prep Papanicolaou smear with manual screening 5 5-15 [facility] Basophil percentageOrdered B y: Dr. Perez on 12-01-2022 Basophil percentage 2.6 mg/dL 2.5-4.9 [facility] Bilirubin [Mass/Vol] 0.40 mg/dL 0.20-1.00 [facility] Comment on above: For patients on eltr ombopag therapy, use of Dimension [place] TBIL is not recommended. Protein [Mass/Vol] 6.6 g/dL 6.4-8.2 [facility] COVID-19 virus antigen assay Ordered By: Dr. Celaya on 12-01-2022 SARS-CoV-2 (COVID-19) Ag IA.rapid Ql (Resp) [facility] Laboratory - Chemistry and C hemistry - challengeOrdered By: Dr. Perez on 12-01-2022 ALP [Catalytic activity/Vol] 86 U/L 45-117 [facility] ALT [Catalytic activity/Vol] 14 U/L 13-56 [facility] Globulin (S) [Mass/Vol] 4.1 g/dL 2.2-4.2 [facility] Magnesium [Mass/Vol] 2.5 mg/dL 1.6-2.6 [facility] Serum or plasma albumin rena urement (mass/volume)Ordered By: Dr. Perez on 12-01-2022 Albumin [Mass/Vol] 2.5 g/dL 3.2-5.0 [facility] Serum or plasma albumin/glob ulin mass ratioOrdered By: Dr. Perez on 12-01-2022 Albumin/Globulin [Mass ratio] 0.6 {ratio} 0.9-2.4 [facility] Thin prep Papanicolaou smear with manual screeningOrdered By: Dr. Perez on 12-01-2022 Thin prep Papanicolaou smear with manual screening 7 U/L 15-37 [facility] Absolute lymphocyte countOrd ered By: Dr. Thomas on 11-30-2022 Lymphocytes Auto (Unsp spec) [#/Vol] 0.62 10*3/uL 0.83-4.51 [facility] Assessment of wrist artery p atency prior to arterial punctureOrdered By: Dr. Thomas on 11-30-2022 Arterial patency Wrist artery --pre arterial puncture Positive [facility] Base excessOrdered By: Dr. Ko hanley on 11-30-2022 Base excess Calc (BldV) [Moles/Vol] 4 mmol/L -2-2 [facility] Basophil percentageOrdered B y: Dr. Thomas on 11-30-2022 Basophil percentage 27.5 mmol/L 22-26 [facility] Basophils/100 WBC (Bld) 93 % 95-99 [facility] Basophils/100 WBC (Bld) 0.3 % 0-1 [facility] Bilirubin [Mass/Vol] 1.10 mg/dL 0.20-1.00 [facility] Comment on above: For patients on eltr ombopag therapy, use of Dimension [place] TBIL is not recommended. Chloride [Moles/Vol] 98 mmol/L 98-107 [facility] Eosinophils/100 WBC (Bld) 0.2 % 0-5 [facility] Glucose [Mass/Vol] 146 mg/dL 74-106 [facility] Comment on above: Fasting Glucose resu lt greater than or equal to 126 mg/dL suggests DIABETES MELLITUS per A.D.A. criteria. Lactate [Moles/Vol] 1.8 mmol/L 0.4-2.0 [facility] Neutrophils (Bld) [#/Vol] 25.7 10*3/uL 2.0-7.7 [facility] Neutrophils/100 WBC (Bld) 88.0 % 47-70 [facility] Potassium [Moles/Vol] 3.8 mmol/L 3.5-5.1 [facility] Protein [Mass/Vol] 7.4 g/dL 6.4-8.2 [facility] Sodium [Moles/Vol] 134 mmol/L 136-145 [facility] WBC (Bld) [#/Vol] 29.2 10*3/uL 4.4-11.0 [facility] Blood erythrocytes count (nu mber/volume)Ordered By: Dr. Thomas on 11-30-2022 RBC (Bld) [#/Vol] 4.09 10*6/uL 4.2-5.4 [facility] Blood hemoglobin measurement (mass/volume)Ordered By: Dr. Thomas on 11-30-2022 Hemoglobin (Bld) [Mass/Vol] 12.2 g/dL 12.0-15.0 [facility] Blood lymphocytes/100 leukoc ytesOrdered By: Dr. Thomas on 11-30-2022 Lymphocytes/100 WBC (Bld) 2.1 % 19-41 [facility] Blood manual differential co mment interpretation (narrative result)Ordered By: Dr. Thomas on 11-30-2022 Manual differential comment Darnell (Bld) [Interp] SCANNED [facility] Blood monocytes/100 leukocyt esOrdered By: Dr[address] Thomas on 11-30-2022 Monocytes/100 WBC (Bld) 6.8 % 0-10 [facility] Blood platelet mean volumeOr dered By: Dr. Thomas on 11-30-2022 Platelet mean volume (Bld) [Entitic vol] 9.9 fL 6.2-12.0 [facility] CO2 (BldA) [Partial pressure ]Ordered By: Dr. Thomas on 11-30-2022 CO2 (Bld) [Partial pressure] 37.0 mm[Hg] 35-45 [facility] Determination of erythrocyte mean corpuscular volume (MCV)Ordered By: Dr. Thomas on 11-30-2022 MCV (RBC) [Entitic vol] 90.5 fL 81-99 [facility] Hematocrit Auto (Bld) [Volum e fraction]Ordered By: Dr. Thomas on 11-30-2022 Hematocrit (Bld) [Volume fraction] 37.0 % 37-47 [facility] Laboratory - Chemistry and C hemistry - challengeOrdered By: Dr. Thomas on 11-30-2022 ALP [Catalytic activity/Vol] 103 U/L 45-117 [facility] ALT [Catalytic activity/Vol] 19 U/L 13-56 [facility] CO2 [Moles/Vol] 29.0 mmol/L 21.0-32.0 [facility] Globulin (S) [Mass/Vol] 4.5 g/dL 2.2-4.2 [facility] Urea nitrogen/Creatinine [Mass ratio] 14.0 mg/mg 10-20 [facility] Laboratory - Hematology and Cell countsOrdered By: Dr. Thomas on 11-30-2022 Erythrocyte distribution width (RBC) [Entitic vol] 43.8 fL 35.1-43.9 [facility] Erythrocyte distribution width (RBC) [Ratio] 13.2 % 11.6-14.6 [facility] Immature granulocytes/100 WBC (Bld) 2.600 % 0.0-0.9 [facility] Comment on above: IG% - Immature Granu locytes (promyelocytes, myelocytes and metamyelocytes) > 1% indicates that a LEFT SHIFT is Present. MCH (RBC) [Entitic mass] 29.8 pg 27.0-32.0 [facility] Nucleated RBC/100 WBC (Bld) [Ratio] 0 % 0-5 [facility] MCHC Auto (RBC) [Mass/Vol]Or dered By: Dr. Thomas on 11-30-2022 MCHC (RBC) [Mass/Vol] 33.0 g/dL 32-36 [facility] Comment on above: Delta: 31.1 on 11/28 No Panel InformationOrdered By: Dr. Perez on 11-30-2022 Methicillin-Resist S.aureus DNA PCR Negative Negative [facility] Streptococcus pneumoniae Antigen (M [facility] No Panel InformationOrdered By: Dr. Thomas on 11-30-2022 Blood Gas Liter Flow 2.0 /min [facility] Blood Gas Sample Site L Radial [facility] Blood Gas Specimen Type ART [facility] Blood Gas Total CO2 29 mmol/L [facility] Oxygen Delivery Device Cannula [facility] Estimated Creatinine Clearance Calc 44.66 ml/min [facility] Estimated GFR (MDRD) Amer 66 mL/min >60 [facility] Comment on above: GFR Calc Estimated GFR (MDRD) Non-Af Amer 54 mL/min >60 [facility] Comment on above: Non- GFR Calc Oxygen (BldA) [Partial press ure]Ordered By: Dr. Thomas on 11-30-2022 Oxygen (Bld) [Partial pressure] 62 mmHG 75-100 [facility] Platelets bldOrdered By: Dr. Thomas on 11-30-2022 Platelets (Bld) [#/Vol] 252 10*3/uL 150-450 [facility] Review by pathologistOrdered By: Dr. Thomas on 11-30-2022 Pathologist review Darnell (Unsp spec) [Interp] Lulu minor [facility] Pathologist review Darnell (Unsp spec) [Interp] Reviewed [facility] Comment on above: Previous reported re sult: Lulu minor Edited by: RGOOD on 12/02/22:925Neutrophilic leukocytosis.Clinical correlation necessary.Patrice Quinones M.D. 12/02/22 AMENDED REPORT 12/02/22 0926 PATH REV previously reported as: Lulu minor Serum or plasma albumin rena urement (mass/volume)Ordered By: Dr. Thomas on 11-30-2022 Albumin [Mass/Vol] 2.9 g/dL 3.2-5.0 [facility] Serum or plasma albumin/glob ulin mass ratioOrdered By: Dr. Thomas on 11-30-2022 Albumin/Globulin [Mass ratio] 0.6 {ratio} 0.9-2.4 [facility] Serum or plasma calcium rena urement (mass/volume)Ordered By: Dr. Thomas on 11-30-2022 Calcium [Mass/Vol] 9.0 mg/dL 8.5-10.1 [facility] Serum or plasma creatinine m easurement (mass/volume)Ordered By: Dr. Thomas on 05-30-2023 Creatinine [Mass/Vol] 1.07 mg/dL 0.55-1.02 [facility] Comment on above: The validity of the calculated GFR & GFRAA in patients over 70 years has not been determined. Clinical correlation is essential. Serum or plasma urea nitroge n measurement (mass/volume)Ordered By: Dr. Thomas on 11-30-2022 Urea nitrogen [Mass/Vol] 15 mg/dL 7-18 [facility] Thin prep Papanicolaou smear with manual screeningOrdered By: Dr. Thomas on 11-30-2022 Thin prep Papanicolaou smear with manual screening 10 U/L 15-37 [facility] Thin prep Papanicolaou smear with manual screening 7 5-15 [facility] Urine Legionella pneumophila antigen detectionOrdered By: Dr. Perez on 11-30-2022 L. pneumophila Ag Ql (U) [facility] pH measurementOrdered By: Dr Ro Thomas on 11-30-2022 pH (Unsp spec) 7.48 [pH] 7.35-7.45 [facility] Absolute lymphocyte countOrd ered By: Dr. Perdomo on 11-28-2022 Lymphocytes Auto (Unsp spec) [#/Vol] 2.94 10*3/uL 0.83-4.51 [facility] Basophil percentageOrdered B y: Dr. Perdomo on 11-28-2022 Basophils/100 WBC (Bld) 0.6 % 0-1 [facility] Chloride [Moles/Vol] 104 mmol/L 98-107 [facility] Eosinophils/100 WBC (Bld) 2.3 % 0-5 [facility] Glucose [Mass/Vol] 112 mg/dL 74-106 [facility] Comment on above: Fasting Glucose resu lt from 100 to 125 mg/dL suggests IMPAIRED HOMEOSTASIS per A.D.A. criteria. Neutrophils (Bld) [#/Vol] 11.4 10*3/uL 2.0-7.7 [facility] Neutrophils/100 WBC (Bld) 69.6 % 47-70 [facility] Potassium [Moles/Vol] 4.3 mmol/L 3.5-5.1 [facility] Sodium [Moles/Vol] 141 mmol/L 136-145 [facility] WBC (Bld) [#/Vol] 16.4 10*3/uL 4.4-11.0 [facility] Blood erythrocytes count (nu mber/volume)Ordered By: Dr. Perdomo on 11-28-2022 RBC (Bld) [#/Vol] 4.53 10*6/uL 4.2-5.4 [facility] Blood hemoglobin measurement (mass/volume)Ordered By: Dr. Perdomo on 11-28-2022 Hemoglobin (Bld) [Mass/Vol] 13.1 g/dL 12.0-15.0 [facility] Blood lymphocytes/100 leukoc ytesOrdered By: Dr. Perdomo on 11-28-2022 Lymphocytes/100 WBC (Bld) 18.0 % 19-41 [facility] Blood monocytes/100 leukocyt esOrdered By: Dr. Perdomo on 11-28-2022 Monocytes/100 WBC (Bld) 8.8 % 0-10 [facility] Blood platelet mean volumeOr dered By: Dr. Perdomo on 11-28-2022 Platelet mean volume (Bld) [Entitic vol] 9.5 fL 6.2-12.0 [facility] Determination of erythrocyte mean corpuscular volume (MCV)Ordered By: Dr. Perdomo on 11-28-2022 MCV (RBC) [Entitic vol] 92.9 fL 81-99 [facility] Hematocrit Auto (Bld) [Volum e fraction]Ordered By: Dr. Perdomo on 11-28-2022 Hematocrit (Bld) [Volume fraction] 42.1 % 37-47 [facility] Laboratory - Chemistry and C hemistry - challengeOrdered By: Dr. Perdomo on 11-28-2022 CO2 [Moles/Vol] 31.0 mmol/L 21.0-32.0 [facility] Urea nitrogen/Creatinine [Mass ratio] 15.6 mg/mg 10-20 [facility] Laboratory - Hematology and Cell countsOrdered By: Dr. Perdomo on 11-28-2022 Erythrocyte distribution width (RBC) [Entitic vol] 45.1 fL 35.1-43.9 [facility] Erythrocyte distribution width (RBC) [Ratio] 13.2 % 11.6-14.6 [facility] Immature granulocytes/100 WBC (Bld) 0.700 % 0.0-0.9 [facility] Comment on above: IG% - Immature Granu locytes (promyelocytes, myelocytes and metamyelocytes) > 1% indicates that a LEFT SHIFT is Present. MCH (RBC) [Entitic mass] 28.9 pg 27.0-32.0 [facility] Nucleated RBC/100 WBC (Bld) [Ratio] 0 % 0-5 [facility] MCHC Auto (RBC) [Mass/Vol]Or dered By: Dr. Perdomo on 11-28-2022 MCHC (RBC) [Mass/Vol] 31.1 g/dL 32-36 [facility] No Panel InformationOrdered By: Dr. Perdomo on 11-28-2022 Troponin I High Sensitivity 6 pg/mL 3.0-54.0 [facility] Comment on above: Please Note: New Vijaya t Units and Gender Specific Reference Ranges. For more information see Policy Stat Procedure [place] High Sensitivity Troponin (TNIH) and attachments. D-Dimer Quantitative (PE/DVT) 0.41 FEU/ug/m 0.27-0.49 [facility] Comment on above: NORMAL D-Dimer level (<0.50) indicates no DVT or PE. Estimated Creatinine Clearance Calc 53.10 ml/min [facility] Estimated GFR (MDRD) Amer 81 mL/min >60 [facility] Comment on above: GFR Calc Estimated GFR (MDRD) Non-Af Amer 67 mL/min >60 [facility] Comment on above: Non- GFR Calc Platelets bldOrdered By: Dr. Perdomo on 11-28-2022 Platelets (Bld) [#/Vol] 338 10*3/uL 150-450 [facility] Serum or plasma calcium rena urement (mass/volume)Ordered By: Dr. Perdomo on 11-28-2022 Calcium [Mass/Vol] 9.1 mg/dL 8.5-10.1 [facility] Serum or plasma creatinine m easurement (mass/volume)Ordered By: Dr. Perdomo on 11-28-2022 Creatinine [Mass/Vol] 0.90 mg/dL 0.55-1.02 [facility] Comment on above: The validity of the calculated GFR & GFRAA in patients over 70 years has not been determined. Clinical correlation is essential. Serum or plasma urea nitroge n measurement (mass/volume)Ordered By: Dr. Perdomo on 11-28-2022 Urea nitrogen [Mass/Vol] 14 mg/dL 7-18 [facility] Thin prep Papanicolaou smear with manual screeningOrdered By: Dr. Perdomo on 11-28-2022 Thin prep Papanicolaou smear with manual screening 6 5-15 [facility] XR Chest PA and Lateralon IMPRESSION: No acute radiographic abnormality. Director Of Vocational Training: JING Transcribe Date/Time: Nov 16 2022 10:00A Dictated by : IBRAHIMA ANGELES MD This examination was interpreted and the report reviewed and electronically signed by: IBRAHIMA ANGELES MD on Nov 16 2022 10:02AM [facility] DIVISION OF RADIOLOGY * * *Final Report* * * DATE OF EXAM: Nov 11 2022 3:15PM WOX 5291 - XR CHEST 2V FRONTAL/LAT / PROCEDURE REASON: multiple diagnoses * * * * Physician Interpretation * * * * EXAMINATION: CHEST RADIOGRAPH (2 VIEW FRONTAL & LATERAL) CLINICAL HISTORY: COPD with exacerbation (HCC) Abnormal breath sounds MQ: XC2_6 EXAM DATE/TIME: 11/11/2022 3:15 PM COMPARISON: Chest x-ray dated November 02, 2021 RESULT: Lines, tubes, and devices: None. Lungs and pleura: No consolidation. No lung mass. No pleural effusion. No pneumothorax. Cardiomediastinal silhouette: Stable cardiomediastinal silhouette. Bones and soft tissues: Mild pectus excavatum deformity. Right shoulder prosthesis. DIVISION [facility]OLOGY [facility] * * *Final Report* * * DATE OF EXAM: Nov 11 2022 3:15PM WOX 5291 - XR CHEST 2V FRONTAL/LAT / PROCEDURE REASON: multiple diagnoses * * * * Physician Interpretation * * * * EXAMINATION: CHEST RADIOGRAPH (2 VIEW FRONTAL & LATERAL) CLINICAL HISTORY: COPD with exacerbation (HCC) Abnormal breath sounds MQ: XC2_6 EXAM DATE/TIME: 11/11/2022 3:15 PM COMPARISON: Chest x-ray dated November 02, 2021 RESULT: Lines, tubes, and devices: None. Lungs and pleura: No consolidation. No lung mass. No pleural effusion. No pneumothorax. Cardiomediastinal silhouette: Stable cardiomediastinal silhouette. Bones and soft tissues: Mild pectus excavatum deformity. Right shoulder prosthesis. IMPRESSION IMPRESSION: No acute radiographic abnormality. Director Of Vocational Training: JING Transcribe Date/Time: Nov 16 2022 10:00A Dictated by : IBRAHIMA ANGELES MD This examination was interpreted and the report reviewed and electronically signed by: IBRAHIMA ANGELES MD on Nov 16 2022 10:02AM EST [facility] XR Chest PA and LateralOrder ed By: Ccf Provider on 11-16-2022 [facility] XR Chest PA and Lateralon Radiology Study observation (narrative) [facility] [id number] BLon 06-05 Alpha 1 antitrypsin [Mass/Vol] 158 mg/dL 90 - 200 mg/dL [facility] CT CHEST WO IVCONon 05-25-20 [facility] OXIMETRY WITH AMBULATIONon 0 01-21-2022 [facility] XR CHEST 2V FRONTAL/LATon [facility] XR Chest PA and Lateralon IMPRESSION: No acute radiographic abnormality. Director Of Vocational Training: [facility] Transcribe Date/Time: Nov 02 2021 12:07P Dictated by : IBRAHIMA ANGELES MD This examination was interpreted and the report reviewed and electronically signed by: IBRAHIMA ANGELES MD on Nov 02 2021 12:07PM EST [facility]_DO_NOT_ USE_DIVISIO N OF RADIOLOGY * * *Final Report* * * DATE OF EXAM: Nov 02 2021 12:00PM WOX 5291 - XR CHEST 2V FRONTAL/LAT / PROCEDURE REASON: Cough * * * * Physician Interpretation * * * * EXAMINATION: CHEST RADIOGRAPH (2 VIEW FRONTAL & LATERAL) CLINICAL HISTORY: Cough MQ: XC2_6 EXAM DATE/TIME: 11/02/2021 12:00 PM COMPARISON: Chest x-ray dated July 06, 2021 RESULT: Lines, tubes, and devices: None. Lungs and pleura: No consolidation. No lung mass. No pleural effusion. No pneumothorax. Cardiomediastinal silhouette: Stable cardiomediastinal silhouette. Bones and soft tissues: Right shoulder prosthesis. Mild degenerative changes in the spine. [facility]_DO_NOT_ USE_DIVISIO N OF RADIOLOGY Provider, [facility] - 11/02/2021 * * *Final Report* * * DATE OF EXAM: Nov 02 2021 12:00PM WOX 5291 - XR CHEST 2V FRONTAL/LAT / PROCEDURE REASON: Cough * * * * Physician Interpretation * * * * EXAMINATION: CHEST RADIOGRAPH (2 VIEW FRONTAL & LATERAL) CLINICAL HISTORY: Cough MQ: XC2_6 EXAM DATE/TIME: 11/02/2021 12:00 PM COMPARISON: Chest x-ray dated July 06, 2021 RESULT: Lines, tubes, and devices: None. Lungs and pleura: No consolidation. No lung mass. No pleural effusion. No pneumothorax. Cardiomediastinal silhouette: Stable cardiomediastinal silhouette. Bones and soft tissues: Right shoulder prosthesis. Mild degenerative changes in the spine. IMPRESSION IMPRESSION: No acute radiographic abnormality. Director Of Vocational Training: JING Transcribe Date/Time: Nov 02 2021 12:07P Dictated by : IBRAHIMA ANGELES MD This examination was interpreted and the report reviewed and electronically signed by: IBRAHIMA ANGELES MD on Nov 02 2021 12:07PM [facility] Radiology Study observation (narrative) [facility] XR Chest PA and LateralOrder ed By: Cc Provider on 11-02-2021 [facility] XR Chest PA and Lateralon IMPRESSION: No acute radiographic abnormality. Director Of Vocational Training: JING Transcribe Date/Time: Apr 21 2021 10:53A Dictated by : IBRAHIMA ANGELES MD This examination was interpreted and the report reviewed and electronically signed by: IBRAHIMA ANGELES MD on Apr 21 2021 10:55AM [facility] DIVISION OF RADIOLOGY * * *Final Report* * * DATE OF EXAM: Apr 21 2021 10:51AM WOX 5291 - XR CHEST 2V FRONTAL/LAT / PROCEDURE REASON: multiple diagnoses * * * * Physician Interpretation * * * * EXAMINATION: CHEST RADIOGRAPH (2 VIEW FRONTAL & LATERAL) CLINICAL HISTORY: Cough SOB (shortness of breath) MQ: XC2_6 EXAM DATE/TIME: 04/21/2021 10:51 AM COMPARISON: November 15, 2017 radiograph and correlation made to CT chest dated May 12, 2020 RESULT: Lines, tubes, and devices: None. Lungs and pleura: Stable linear scarring in the right midlung zone. No consolidation. No lung mass. No pleural effusion. No pneumothorax. Cardiomediastinal silhouette: Stable cardiomediastinal silhouette. Bones and soft tissues: Right humeral head prosthesis. DIVISION OF RADIOLOGY Provider, [facility] - 04/21/2021 * * *Final Report* * * DATE OF EXAM: Apr 21 2021 10:51AM WOX 5291 - XR CHEST 2V FRONTAL/LAT / PROCEDURE REASON: multiple diagnoses * * * * Physician Interpretation * * * * EXAMINATION: CHEST RADIOGRAPH (2 VIEW FRONTAL & LATERAL) CLINICAL HISTORY: Cough SOB (shortness of breath) MQ: XC2_6 EXAM DATE/TIME: 04/21/2021 10:51 AM COMPARISON: November 15, 2017 radiograph and correlation made to CT chest dated May 12, 2020 RESULT: Lines, tubes, and devices: None. Lungs and pleura: Stable linear scarring in the right midlung zone. No consolidation. No lung mass. No pleural effusion. No pneumothorax. Cardiomediastinal silhouette: Stable cardiomediastinal silhouette. Bones and soft tissues: Right humeral head prosthesis. IMPRESSION IMPRESSION: No acute radiographic abnormality. Director Of Vocational Training: JING Transcribe Date/Time: Apr 21 2021 10:53A Dictated by : IBRAHIMA ANGELES MD This examination was interpreted and the report reviewed and electronically signed by: IBRAHIMA ANGELES MD on Apr 21 2021 10:55AM EST [facility] Radiology Study observation (narrative) [facility] XR Chest PA and LateralOrder ed By: Ccf Provider on 04-21-2021 [facility] Vital Signs Date Time Vital Sign Value Performing Clinician Facility 01-24-2025 15:32-0400 Body height 162.[address] Julio Draper MD Work Phone: [facility] 01-24-2025 15:32-0400 Body mass index (BMI) [Ratio] 24 kg/m2 Dr. Julio Draper MD Work Phone: 8(763)213-028070 [place] [address] 01-24-2025 15:32-0400 Body weight 63.[address] Julio Draper MD Work Phone: 6(778)409-271401 [place] [address] 01-24-2025 15:32-0400 Diastolic blood pressure 59 mm[Hg] Dr. Julio Draper MD Work Phone: 1(482)236-547870 [place] [address] 01-24-2025 15:32-0400 Heart rate 96 /min Dr. Julio Draper MD Work Phone: 6(784)[phone] [place] [address] 01-24-2025 15:32-0400 Inhaled oxygen flow rate 3 L/min Dr. Julio Draper MD Work Phone: 2(881)443-877701 [place] [address] 01-24-2025 15:32-0400 Respiratory rate 18 /min Dr. Julio Draper MD Work Phone: 1(647)445-012370 [place] [address] 01-24-2025 15:32-0400 Systolic blood pressure 116 mm[Hg] Dr. Julio Draper MD Work Phone: 2(082)603-918501 [place] [address] 01-03-2025 10:02-0400 Body height 162.[address] Julio Draper MD Work Phone: 5(742)453-479901 [place] [address] 01-03-2025 10:02-0400 Body weight 65.[address] Julio Draper MD Work Phone: 4(963)443-105470 [place] [address] 01-03-2025 10:00-0400 Body mass index (BMI) [Ratio] 25 kg/m2 Dr. Julio Draper MD Work Phone: 5(053)051-934370 [place] [address] 11-14-2024 14:48-0400 Body mass index (BMI) [Ratio] 23.68 kg/m2 Jean[employer]Pierre 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 Work Phone: [facility] 11-14-2024 14:48-0400 Body weight 61.6 kg Jean[employer]Pierre 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 Work Phone: [facility] 11-14-2024 14:48-0400 Diastolic blood pressure 60 mm[Hg] Jean[employer]Pierre 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 Work Phone: [facility] 11-14-2024 14:48-0400 Heart rate 89 /min Jean-Pierre [employer] ME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 Work Phone: [facility] 11-14-2024 14:48-0400 Respiratory rate 17 /min Jean[employer]Pierre [employer] ME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 Work Phone: [facility] 11-14-2024 14:48-0400 SaO2% (BldA) [Mass fraction] 90 % Jean-Pierre Click [employer] ME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 Work Phone: [facility] 11-14-2024 14:48-0400 Systolic blood pressure 120 mm[Hg] Jean[employer]Pierre Click [employer] MECH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 Work Phone: [facility] 11-13-2024 10:03-0400 Body mass index (BMI) [Ratio] 23.83 kg/m2 Julio Draper MD Work Phone: [facility] 11-13-2024 10:03-0400 Body weight 62 kg Julio Draper MD Work Phone: [facility] 11-13-2024 10:03-0400 Diastolic blood pressure 64 mm[Hg] Julio Draper MD Work Phone: [facility] 11-13-2024 10:03-0400 Heart rate 80 /min Julio Draper MD Work Phone: [facility] 11-13-2024 10:03-0400 SaO2% (BldA) [Mass fraction] 98 % Julio Draper MD Work Phone: [facility] 11-13-2024 10:03-0400 Systolic blood pressure 120 mm[Hg] Julio Draper MD Work Phone: [facility] 11-01-2024 11:32-0400 Body height 162.[address] Julio Draper MD Work Phone: [facility] 11-01-2024 11:32-0400 Body mass index (BMI) [Ratio] 23.5 kg/m2 Dr. Julio Draper MD Work Phone: 7(867)886-572601 [place] [address] 11-01-2024 11:32-0400 Body weight 62.[address] Julio Draper MD Work Phone: 2(858)672-853801 [place] [address] 11-01-2024 11:32-0400 Diastolic blood pressure 65 mm[Hg] Dr. Julio Draper MD Work Phone: 1(215)218-663101 [place] [address] 11-01-2024 11:32-0400 Heart rate 86 /min Dr. Julio Draper MD Work Phone: 7(892)805-793801 [place] [address] 11-01-2024 11:32-0400 Inhaled oxygen flow rate 4 L/min Dr. Julio Draper MD Work Phone: 6(912)752-857201 [place] [address] 11-01-2024 11:32-0400 Respiratory rate 18 /min Dr. Julio Draper MD Work Phone: 3(226)605-141501 [place] [address] 11-01-2024 11:32-0400 SaO2% (BldA) [Mass fraction] 88 % Dr. Julio Draper MD Work Phone: 6(104)003-093101 [place] [address] 11-01-2024 11:32-0400 Systolic blood pressure 112 mm[Hg] Dr. Julio Draper MD Work Phone: 3(164)973-573401 [place] [address] 10-31-2024 14:17-0400 Body temperature 98.3 [degF] Dr. Julio Draper MD Work Phone: 1(321)614-979501 [place] [address] 10-31-2024 14:17-0400 Diastolic blood pressure 67 mm[Hg] Dr. Julio Draper MD Work Phone: 7(568)608-394501 [place] [address] 10-31-2024 14:17-0400 Heart rate 86 /min Dr. Julio Draper MD Work Phone: 2(062)759-717001 [place] [address] 10-31-2024 14:17-0400 Respiratory rate 16 /min Dr. Julio Draper MD Work Phone: 8(255)452-239901 [place] [address] 10-31-2024 14:17-0400 SaO2% (BldA) [Mass fraction] 100 % Dr. Julio Draper MD Work Phone: [facility] 10-31-2024 14:17-0400 Systolic blood pressure 127 mm[Hg] Dr. Julio Draper MD Work Phone: [facility] 10-31-2024 09:53-0400 Body mass index (BMI) [Ratio] 24.1 kg/m2 Dr. Julio Draper MD Work Phone: [facility] 10-31-2024 09:53-0400 Body weight 63.[address] Julio Draper MD Work Phone: [facility] 10-31-2024 09:53-0400 Inhaled oxygen flow rate 3 L/min Dr. Julio Draper MD Work Phone: [facility] 10-08-2024 18:54-0400 Body mass index (BMI) [Ratio] 22.87 kg/m2 Julio Draper MD Work Phone: [facility] 10-08-2024 18:54-0400 Body weight 59.5 kg Julio Draper MD Work Phone: [facility] 10-08-2024 18:54-0400 Diastolic blood pressure 70 mm[Hg] Julio Draper MD Work Phone: [facility] 10-08-2024 18:54-0400 Heart rate 84 /min Julio Draper MD Work Phone: [facility] 10-08-2024 18:54-0400 SaO2% (BldA) [Mass fraction] 97 % Julio Draper MD Work Phone: [facility] 10-08-2024 18:54-0400 Systolic blood pressure 118 mm[Hg] Julio Draper MD Work Phone: [facility] 09-20-2024 10:40-0400 Body temperature 98 [degF] Dr. Julio Draper MD Work Phone: [facility] 09-20-2024 10:40-0400 Body weight 60.[address] Julio Draper MD Work Phone: [facility] 09-20-2024 10:40-0400 Diastolic blood pressure 64 mm[Hg] Dr. Julio Draper MD Work Phone: [facility] 09-20-2024 10:40-0400 Heart rate 103 /min Dr. Julio Draper MD Work Phone: [facility] 09-20-2024 10:40-0400 Inhaled oxygen flow rate 2 L/min Dr. Julio Draper MD Work Phone: [facility] 09-20-2024 10:40-0400 Respiratory rate 16 /min Dr. Julio Draper MD Work Phone: [facility] 09-20-2024 10:40-0400 SaO2% (BldA) [Mass fraction] 94 % Dr. Julio Draper MD Work Phone: [facility] 09-20-2024 10:40-0400 Systolic blood pressure 117 mm[Hg] Dr. Julio Draper MD Work Phone: [facility] 09-19-2024 16:33-0400 Body mass index (BMI) [Ratio] 22.66 kg/m2 Julio Draper MD Work Phone: [facility] 09-19-2024 16:33-0400 Body temperature 97.59 [degF] Julio Draper MD Work Phone: [facility] 09-19-2024 16:33-0400 Body weight 58.97 kg Julio Draper MD Work Phone: [facility] 09-19-2024 16:33-0400 Diastolic blood pressure 58 mm[Hg] Julio Draper MD Work Phone: [facility] 09-19-2024 16:33-0400 Heart rate 100 /min Julio Draper MD Work Phone: [facility] 09-19-2024 16:33-0400 Systolic blood pressure 110 mm[Hg] Juilo Draper MD Work Phone: [facility] 09-17-2024 20:52-0400 Body temperature 98 [degF] Dr. Julio Draper MD Work Phone: [facility] 09-17-2024 20:52-0400 Diastolic blood pressure 76 mm[Hg] Dr. Julio Draper MD Work Phone: [facility] 09-17-2024 20:52-0400 Heart rate 79 /min Dr. Julio Draper MD Work Phone: [facility] 09-17-2024 20:52-0400 Respiratory rate 16 /min Dr. Julio Draper MD Work Phone: [facility] 09-17-2024 20:52-0400 SaO2% (BldA) [Mass fraction] 95 % Dr. Julio Draper MD Work Phone: [facility] 09-17-2024 20:52-0400 Systolic blood pressure 111 mm[Hg] Dr. Julio Draper MD Work Phone: [facility] 09-17-2024 17:11-0400 Body height 162.[address] Julio Draper MD Work Phone: [facility] 09-17-2024 17:11-0400 Inhaled oxygen flow rate 3 L/min Dr. Julio Draper MD Work Phone: [facility] 09-06-2024 07:26-0500 Body weight 64.[address] Julio Draper MD Work Phone: [facility] 09-04-2024 13:04-0500 Body mass index (BMI) [Ratio] 22.32 kg/m2 Jean-Pierre Click 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 Work Phone: [facility] 09-04-2024 13:04-0500 Body weight 58.06 kg Jean-Pierre Click 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 Work Phone: [facility] 09-04-2024 13:04-0500 Diastolic blood pressure 67 mm[Hg] Jean-Pierre Click [employer] MECH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 Work Phone: [facility] 09-04-2024 13:04-0500 Heart rate 96 /min Jean-Pierre Click [employer] END MECH[employer]IC.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 Work Phone: [facility] 09-04-2024 13:04-0500 SaO2% (BldA) [Mass fraction] 91 % Jean-Pierre Click [employer] END MECH[employer]IC.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 Work Phone: [facility] 09-04-2024 13:04-0500 Systolic blood pressure 123 mm[Hg] Jean-Pierre Click [employer] MECH[employer]IC.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 Work Phone: [facility] 08-14-2024 11:24-0500 Body mass index (BMI) [Ratio] 23.71 kg/m2 Julio Draper MD Work Phone: [facility] 08-14-2024 11:24-0500 Body temperature 97.3 [degF] Julio Draper MD Work Phone: [facility] 08-14-2024 11:24-0500 Body weight 61.69 kg Julio Draper MD Work Phone: [facility] 08-14-2024 11:24-0500 Diastolic blood pressure 60 mm[Hg] Julio Draper MD Work Phone: [facility] 08-14-2024 11:24-0500 Heart rate 104 /min Julio Draper MD Work Phone: [facility] 08-14-2024 11:24-0500 Systolic blood pressure 134 mm[Hg] Julio Draper MD Work Phone: [facility] 08-10-2024 12:19-0500 Body temperature 98.5 [degF] Dr. Julio Draper MD Work Phone: [facility] 08-10-2024 12:19-0500 Diastolic blood pressure 79 mm[Hg] Dr. Julio Draper MD Work Phone: 4(749)880-947201 [place] [address] 08-10-2024 12:19-0500 Heart rate 105 /min Dr. Julio Draper MD Work Phone: 3(587)147-026001 [place] [address] 08-10-2024 12:19-0500 Inhaled oxygen flow rate 3 L/min Dr. Julio Draper MD Work Phone: 4(729)751-212101 [place] [address] 08-10-2024 12:19-0500 Respiratory rate 18 /min Dr. Julio Draper MD Work Phone: 1(305)236-559301 [place] [address] 08-10-2024 12:19-0500 SaO2% (BldA) [Mass fraction] 96 % Dr. Julio Draper MD Work Phone: 7(025)817-078401 [place] [address] 08-10-2024 12:19-0500 Systolic blood pressure 157 mm[Hg] Dr. Julio Draper MD Work Phone: 0(489)082-785101 [place] [address] 08-10-2024 11:30-0500 Body mass index (BMI) [Ratio] 24.4 kg/m2 Dr. Julio Draper MD Work Phone: 8(027)580-131001 [place] [address] 08-10-2024 11:30-0500 Body weight 64.[address] Julio Draper MD Work Phone: 4(578)251-577401 [place] [address] 08-03-2024 01:00-0500 Body temperature 99.8 [degF] Dr. Julio Draper MD Work Phone: 8(600)926-844501 [place] [address] 08-03-2024 01:00-0500 Diastolic blood pressure 66 mm[Hg] Dr. Julio Draper MD Work Phone: 1(610)698-324501 [place] [address] 08-03-2024 01:00-0500 Heart rate 102 /min Dr. Julio Draper MD Work Phone: 0(418)194-386901 [place] [address] 08-03-2024 01:00-0500 Respiratory rate 16 /min Dr. Julio Draper MD Work Phone: 8(767)933-220001 [place] [address] 08-03-2024 01:00-0500 SaO2% (BldA) [Mass fraction] 97 % Dr. Julio Draper MD Work Phone: [facility] 08-03-2024 01:00-0500 Systolic blood pressure 144 mm[Hg] Dr. Julio Draper MD Work Phone: [facility] 08-03-2024 00:00-0500 Inhaled oxygen flow rate 4 L/min Dr. Julio Draper MD Work Phone: [facility] 08-02-2024 22:49-0500 Body mass index (BMI) [Ratio] 25.4 kg/m2 Dr. Julio Draper MD Work Phone: [facility] 08-02-2024 22:49-0500 Body weight 65.[address] Julio Draper MD Work Phone: [facility] 07-31-2024 11:37-0500 Body mass index (BMI) [Ratio] 23.87 kg/m2 Julio Draper MD Work Phone: [facility] 07-31-2024 11:37-0500 Body temperature 96.49 [degF] Julio Draper MD Work Phone: [facility] 07-31-2024 11:37-0500 Body weight 62.1 kg Julio Draper MD Work Phone: [facility] 07-31-2024 11:37-0500 Diastolic blood pressure 64 mm[Hg] Julio Draper MD Work Phone: [facility] 07-31-2024 11:37-0500 Heart rate 92 /min Julio Draper MD Work Phone: [facility] 07-31-2024 11:37-0500 SaO2% (BldA) [Mass fraction] 97 % Julio Draper MD Work Phone: [facility] 07-31-2024 11:37-0500 Systolic blood pressure 136 mm[Hg] Julio Draper MD Work Phone: [facility] 07-30-2024 08:03-0500 Body mass index (BMI) [Ratio] 25.3 kg/m2 Dr. Julio Draper MD Work Phone: 5(020)244-243101 [place] [address] 07-27-2024 14:32-0500 Body temperature 98.4 [degF] Dr. Julio Draper MD Work Phone: 4(507)878-297301 [place] [address] 07-27-2024 14:32-0500 Diastolic blood pressure 61 mm[Hg] Dr. Julio Draper MD Work Phone: 6(071)467-598901 [place] [address] 07-27-2024 14:32-0500 Heart rate 88 /min Dr. Julio Draper MD Work Phone: 3(906)072-774801 [place] [address] 07-27-2024 14:32-0500 Inhaled oxygen flow rate 3 L/min Dr. Julio Draper MD Work Phone: 7(750)506-273101 [place] [address] 07-27-2024 14:32-0500 Respiratory rate 18 /min Dr. Julio Draper MD Work Phone: 2(064)868-083301 [place] [address] 07-27-2024 14:32-0500 SaO2% (BldA) [Mass fraction] 97 % Dr. Julio Draper MD Work Phone: 0(963)478-870701 [place] [address] 07-27-2024 14:32-0500 Systolic blood pressure 123 mm[Hg] Dr. Julio Draper MD Work Phone: 5(754)589-703901 [place] [address] 07-27-2024 10:48-0500 Body mass index (BMI) [Ratio] 22.6 kg/m2 Dr. Julio Draper MD Work Phone: 0(926)489-087701 [place] [address] 07-27-2024 10:48-0500 Body weight 60.[address] Julio Draper MD Work Phone: 8(783)604-140401 [place] [address] 07-23-2024 16:17-0500 Inhaled oxygen concentration 5 % Dr. Julio Draper MD Work Phone: 5(427)885-213601 [place] [address] 07-18-2024 11:05-0500 Body temperature 98.4 [degF] Julio Draper MD Work Phone: [facility] 07-18-2024 11:05-0500 Diastolic blood pressure 74 mm[Hg] Julio Draper MD Work Phone: [facility] 07-18-2024 11:05-0500 Heart rate 88 /min Julio Draper MD Work Phone: [facility] 07-18-2024 11:05-0500 Respiratory rate 1 /min Julio Draper MD Work Phone: [facility] 07-18-2024 11:05-0500 Systolic blood pressure 126 mm[Hg] Julio Draper MD Work Phone: [facility] 07-11-2024 15:02-0500 Heart rate 88 /min Dr. Julio Draper MD Work Phone: [facility] 07-11-2024 15:02-0500 Respiratory rate 18 /min Dr. Julio Draper MD Work Phone: [facility] 07-11-2024 14:30-0500 Body temperature 97 [degF] Dr. Julio Draper MD Work Phone: 6(200)890-482570 [place] [address] 07-11-2024 14:30-0500 Diastolic blood pressure 77 mm[Hg] Dr. Julio Draper MD Work Phone: 2(740)905-131770 [place] [address] 07-11-2024 14:30-0500 Inhaled oxygen flow rate 3 L/min Dr. Julio Draper MD Work Phone: 8(685)503-524070 [place] [address] 07-11-2024 14:30-0500 SaO2% (BldA) [Mass fraction] 95 % Dr. Julio Draper MD Work Phone: 4(041)809-760601 [place] [address] 07-11-2024 14:30-0500 Systolic blood pressure 128 mm[Hg] Dr. Julio Draper MD Work Phone: 8(633)205-998301 [place] [address] 07-11-2024 12:35-0500 Body mass index (BMI) [Ratio] 23.3 kg/m2 Dr. Julio Draper MD Work Phone: [facility] 07-11-2024 12:35-0500 Body weight 62.[address] Julio Draper MD Work Phone: [facility] 07-05-2024 13:21-0500 Body mass index (BMI) [Ratio] 24.52 kg/m2 Julio Draper MD Work Phone: [facility] 07-05-2024 13:21-0500 Body temperature 97.9 [degF] Julio Draper MD Work Phone: [facility] 07-05-2024 13:21-0500 Body weight 63.8 kg Julio Draper MD Work Phone: [facility] 07-05-2024 13:21-0500 Diastolic blood pressure 64 mm[Hg] Julio Draper MD Work Phone: [facility] 07-05-2024 13:21-0500 Heart rate 104 /min Julio Draper MD Work Phone: [facility] 07-05-2024 13:21-0500 Respiratory rate 16 /min Julio Draper MD Work Phone: [facility] 07-05-2024 13:21-0500 SaO2% (BldA) [Mass fraction] 97 % Julio Draper MD Work Phone: [facility] 07-05-2024 13:21-0500 Systolic blood pressure 142 mm[Hg] Julio Draper MD Work Phone: [facility] 07-03-2024 16:50-0500 Body temperature 97.8 [degF] Dr. Julio Draper MD Work Phone: [facility] 07-03-2024 16:50-0500 Diastolic blood pressure 76 mm[Hg] Dr. Julio Draper MD Work Phone: [facility] 07-03-2024 16:50-0500 Heart rate 86 /min Dr. Julio Draper MD Work Phone: 0(775)525-351501 [place] [address] 07-03-2024 16:50-0500 Respiratory rate 15 /min Dr. Julio Draper MD Work Phone: 0(735)504-342301 [place] [address] 07-03-2024 16:50-0500 SaO2% (BldA) [Mass fraction] 95 % Dr. Julio Draper MD Work Phone: 5(048)250-632701 [place] [address] 07-03-2024 16:50-0500 Systolic blood pressure 166 mm[Hg] Dr. Julio Draper MD Work Phone: 5(081)054-998201 [place] [address] 06-19-2024 14:36-0500 Body temperature 98.2 [degF] Dr. Julio Draper MD Work Phone: 2(879)218-672201 [place] [address] 06-19-2024 14:36-0500 Body weight [address] Julio Draper MD Work Phone: 2(195)526-417001 [place] [address] 06-19-2024 14:36-0500 Diastolic blood pressure 59 mm[Hg] Dr. Julio Draper MD Work Phone: 2(481)905-040401 [place] [address] 06-19-2024 14:36-0500 Heart rate 95 /min Dr. Julio Draper MD Work Phone: 6(654)265-454501 [place] [address] 06-19-2024 14:36-0500 Inhaled oxygen flow rate 2.5 L/min Dr. Julio Draper MD Work Phone: 1(938)236-981001 [place] [address] 06-19-2024 14:36-0500 Respiratory rate 16 /min Dr. Julio Draper MD Work Phone: 8(060)982-028601 [place] [address] 06-19-2024 14:36-0500 SaO2% (BldA) [Mass fraction] 94 % Dr. Julio Draper MD Work Phone: 3(697)632-245201 [place] [address] 06-19-2024 14:36-0500 Systolic blood pressure 115 mm[Hg] Dr. Julio Draper MD Work Phone: 6(749)390-823201 [place] [address] 06-07-2024 13:12-0500 Body mass index (BMI) [Ratio] 25.8 kg/m2 Magali Nieves MD Work Phone: 4(373)660-688543 [place] [address] 06-07-2024 13:120500 Body weight 67.13 kg Magali Nieves MD Work Phone: [facility] 06-07-2024 13:12-0500 Diastolic blood pressure 62 mm[Hg] Magali Nieves MD Work Phone: 7(912)644-633043 [place] [address] 06-07-2024 13:12-0500 Heart rate 95 /min Magali Nieves MD Work Phone: 2(492)522-252643 [place] [address] 06-07-2024 13:12-0500 Respiratory rate 17 /min Magali Nieves MD Work Phone: 5(039)885-207743 [place] [address] 06-07-2024 13:12-0500 SaO2% (BldA) [Mass fraction] 93 % Magali Nieves MD Work Phone: 9(784)310-404843 [place] [address] 06-07-2024 13:12-0500 Systolic blood pressure 128 mm[Hg] Magali Nieves MD Work Phone: 5(331)877-256543 [place] [address] 06-05-2024 16:30-0500 Body temperature 98.9 [degF] Dr. Julio Draper MD Work Phone: 0(034)546-932770 [place] [address] 06-05-2024 16:30-0500 Diastolic blood pressure 63 mm[Hg] Dr. Julio Draper MD Work Phone: 0(983)656-908570 [place] [address] 06-05-2024 16:30-0500 Heart rate 85 /min Dr. Julio Draper MD Work Phone: 5(425)132-785301 [place] [address] 06-05-2024 16:30-0500 Inhaled oxygen flow rate 3 L/min Dr. Julio Draper MD Work Phone: 1(242)027-420301 [place] [address] 06-05-2024 16:30-0500 Respiratory rate 20 /min Dr. Julio Draper MD Work Phone: 5(933)044-298201 [place] [address] 06-05-2024 16:30-0500 SaO2% (BldA) [Mass fraction] 98 % Dr. Julio Draper MD Work Phone: [facility] 06-05-2024 16:30-0500 Systolic blood pressure 125 mm[Hg] Dr. Julio Draper MD Work Phone: [facility] 05-24-2024 13:37-0500 Body temperature 98 [degF] Dr. Julio Draper MD Work Phone: 6(562)767-417827 [address] 05-24-2024 13:37-0500 Body weight 65.[address] Julio Draper MD Work Phone: 2(831)172-015801 [place] [address] 05-24-2024 13:37-0500 Diastolic blood pressure 69 mm[Hg] Dr. Julio Draper MD Work Phone: 6(106)684-564601 [place] [address] 05-24-2024 13:37-0500 Heart rate 98 /min Dr. Julio Draper MD Work Phone: 5(174)004-685970 [place] [address] 05-24-2024 13:37-0500 Inhaled oxygen flow rate 4 L/min Dr. Julio Draper MD Work Phone: 8(332)179-410470 [place] [address] 05-24-2024 13:37-0500 Respiratory rate 16 /min Dr. Julio Draper MD Work Phone: [facility] 05-24-2024 13:37-0500 SaO2% (BldA) [Mass fraction] 95 % Dr. Julio Draper MD Work Phone: [facility] 05-24-2024 13:37-0500 Systolic blood pressure 133 mm[Hg] Dr. Julio Draper MD Work Phone: [facility] 05-15-2024 09:56-0500 Body mass index (BMI) [Ratio] 25.37 kg/m2 Julio Draper MD Work Phone: [facility] 05-15-2024 09:56-0500 Body temperature 98.1 [degF] Julio Draper MD Work Phone: [facility] 05-15-2024 09:56-0500 Body weight 66 kg Julio Draper MD Work Phone: [facility] 05-15-2024 09:56-0500 Diastolic blood pressure 62 mm[Hg] Julio Draper MD Work Phone: [facility] 05-15-2024 09:56-0500 Heart rate 94 /min Julio Draper MD Work Phone: [facility] 05-15-2024 09:56-0500 Respiratory rate 18 /min Julio Draper MD Work Phone: [facility] 05-15-2024 09:56-0500 SaO2% (BldA) [Mass fraction] 94 % Julio Draper MD Work Phone: [facility] 05-15-2024 09:56-0500 Systolic blood pressure 140 mm[Hg] Julio Draper MD Work Phone: [facility] 04-12-2024 10:39-0400 Body mass index (BMI) [Ratio] 24.37 kg/m2 Julio Darper MD Work Phone: [facility] 04-12-2024 10:39-0400 Body temperature 98.2 [degF] Julio Draper MD Work Phone: [facility] 04-12-2024 10:39-0400 Body weight 63.4 kg Julio Draper MD Work Phone: [facility] 04-12-2024 10:39-0400 Diastolic blood pressure 62 mm[Hg] Julio Draper MD Work Phone: [facility] 04-12-2024 10:39-0400 Heart rate 96 /min Julio Draper MD Work Phone: [facility] 04-12-2024 10:39-0400 Respiratory rate 18 /min Julio Draper MD Work Phone: [facility] 04-12-2024 10:39-0400 SaO2% (BldA) [Mass fraction] 94 % Julio Draper MD Work Phone: [facility] 04-12-2024 10:39-0400 Systolic blood pressure 124 mm[Hg] Julio Draper MD Work Phone: [facility] 02-20-2024 14:50-0400 Diastolic blood pressure 61 mm[Hg] Dylon Laird MD Work Phone: [facility] 02-20-2024 14:50-0400 Heart rate 54 /min Dylon Laird MD Work Phone: [facility] 02-20-2024 14:50-0400 SaO2% (BldA) [Mass fraction] 100 % Dylon Laird MD Work Phone: [facility] 02-20-2024 14:50-0400 Systolic blood pressure 126 mm[Hg] Dylon Laird MD Work Phone: [facility] 02-20-2024 14:24-0400 Body temperature 96.8 [degF] Dylon Laird MD Work Phone: [facility] 02-20-2024 14:24-0400 Respiratory rate 16 /min Dylon Laird MD Work Phone: [facility] 02-20-2024 12:42-0400 Body height 161.3 cm Dylon Laird MD Work Phone: [facility] 02-20-2024 12:42-0400 Body mass index (BMI) [Ratio] 24.06 kg/m2 Dylon Laird MD Work Phone: [facility] 02-20-2024 12:42-0400 Body weight 62.6 kg Dylon Laird MD Work Phone: [facility] 11-11-2023 14:57-0400 Body height 161.3 cm Julio Draper MD Work Phone: [facility] 11-11-2023 14:57-0400 Body mass index (BMI) [Ratio] 22.14 kg/m2 Julio Draper MD Work Phone: [facility] 11-11-2023 14:57-0400 Body weight 57.61 kg Julio Draper MD Work Phone: [facility] 11-11-2023 14:57-0400 Diastolic blood pressure 58 mm[Hg] Julio Draper MD Work Phone: [facility] 11-11-2023 14:57-0400 Heart rate 76 /min Julio Draper MD Work Phone: [facility] 11-11-2023 14:57-0400 Respiratory rate 16 /min Julio Draper MD Work Phone: [facility] 11-11-2023 14:57-0400 SaO2% (BldA) [Mass fraction] 95 % Julio Draper MD Work Phone: [facility] Comment on above: 3L O2 11-11-2023 14:57-0400 Systolic blood pressure 86 mm[Hg] Juloi Draper MD Work Phone: [facility] 11-08-2023 14:21-0400 Body mass index (BMI) [Ratio] 20.77 kg/m2 Luna Fan PA-C Work Phone: [facility] 11-08-2023 14:21-0400 Body weight 54.88 kg Luna Fan PA-C Work Phone: [facility] 11-08-2023 14:21-0400 Diastolic blood pressure 66 mm[Hg] Luna Fan PA-C Work Phone: [facility] 11-08-2023 14:21-0400 Heart rate 72 /min Luna Fan PA-C Work Phone: [facility] 11-08-2023 14:21-0400 Respiratory rate 16 /min Luna Fan PA-C Work Phone: [facility] 11-08-2023 14:21-0400 SaO2% (BldA) [Mass fraction] 93 % Luna Swartz PA-C Work Phone: [facility] Comment on above: 3L via demand [place] 11-08-2023 14:21-0400 Systolic blood pressure 132 mm[Hg] Luna Swartz PA-C Work Phone: [facility] 10-31-2023 17:23-0400 Body mass index (BMI) [Ratio] 21.63 kg/m2 Julio Draper MD Work Phone: [facility] 10-31-2023 17:23-0400 Body temperature 98.6 [degF] Julio Draper MD Work Phone: [facility] 10-31-2023 17:23-0400 Body weight 57.15 kg Julio Draper MD Work Phone: [facility] 10-31-2023 17:23-0400 Diastolic blood pressure 60 mm[Hg] Julio Draper MD Work Phone: [facility] 10-31-2023 17:23-0400 Heart rate 68 /min Julio Draper MD Work Phone: [facility] 10-31-2023 17:23-0400 Respiratory rate 12 /min Julio Draper MD Work Phone: [facility] 10-31-2023 17:23-0400 Systolic blood pressure 116 mm[Hg] Julio Draper MD Work Phone: [facility] 09-01-2023 13:53-0500 Body temperature 97.1 [degF] Dr. Julio Draper Work Phone: [facility] 09-01-2023 13:53-0500 Diastolic blood pressure 82 mm[Hg] Dr. Julio Draper Work Phone: [facility] 09-01-2023 13:53-0500 Heart rate 80 /min Dr. Julio Draper Work Phone: [facility] 02-29-2024 13:53-0500 Inhaled oxygen flow rate 2 L/min Dr. Julio Draper Work Phone: [facility] 09-01-2023 13:53-0500 Respiratory rate 16 /min Dr. Julio Draper Work Phone: [facility] 09-01-2023 13:53-0500 SaO2% (BldA) [Mass fraction] 100 % Dr. Julio Draper Work Phone: [facility] 09-01-2023 13:53-0500 Systolic blood pressure 127 mm[Hg] Dr. Julio Draper Work Phone: [facility] 09-01-2023 09:37-0500 Body height 162.[address] Julio Draper Work Phone: [facility] 08-25-2023 14:04-0500 Body temperature 98.01 [degF] Julio Draper MD Work Phone: [facility] 08-25-2023 14:04-0500 Body weight 59.88 kg Julio Draper MD Work Phone: [facility] 08-25-2023 14:04-0500 Diastolic blood pressure 58 mm[Hg] Julio Draper MD Work Phone: [facility] 08-25-2023 14:04-0500 Heart rate 79 /min Julio Draper MD Work Phone: [facility] 08-25-2023 14:04-0500 SaO2% (BldA) [Mass fraction] 99 % Julio Draper MD Work Phone: [facility] 08-25-2023 14:04-0500 Systolic blood pressure 112 mm[Hg] Julio Draper MD Work Phone: [facility] 08-16-2023 13:32-0500 Diastolic blood pressure 82 mm[Hg] Magali Nieves MD Work Phone: [facility] 08-16-2023 13:32-0500 Heart rate 74 /min Magali Nieves MD Work Phone: 1(574)695-646443 [place] [address] 08-16-2023 13:32-0500 SaO2% (BldA) [Mass fraction] 99 % Magali Nieves MD Work Phone: [facility] 08-16-2023 13:32-0500 Systolic blood pressure 120 mm[Hg] Magali Nieves MD Work Phone: 6(847)800-969943 [place] [address] 07-09-2023 09:05-0500 Diastolic blood pressure 67 mm[Hg] Dr. Julio Draper Work Phone: 6(222)165-433901 [place] [address] 07-09-2023 09:05-0500 Heart rate 84 /min Dr. Julio Draper Work Phone: 5(875)326-416701 [place] [address] 07-09-2023 09:05-0500 Systolic blood pressure 111 mm[Hg] Dr. Julio Draper Work Phone: 5(122)378-046301 [place] [address] 07-09-2023 08:17-0500 Body temperature 98.7 [degF] Dr. Julio Draper Work Phone: 5(293)712-293001 [place] [address] 07-09-2023 08:17-0500 Inhaled oxygen flow rate 4 L/min Dr. Julio Draper Work Phone: 5(639)093-647601 [place] [address] 07-09-2023 08:17-0500 Respiratory rate 32 /min Dr. Julio Draper Work Phone: 3(321)196-669101 [place] [address] 07-09-2023 08:17-0500 SaO2% (BldA) [Mass fraction] 90 % Dr. Julio Draper Work Phone: 0(962)807-986201 [place] [address] 07-08-2023 10:37-0500 Body height 162.[address] Julio Draper Work Phone: 6(539)046-280601 [place] [address] 07-08-2023 10:37-0500 Body weight [address] Julio Draper Work Phone: 0(687)763-677001 [place] [address] 07-07-2023 18:04-0500 Body mass index (BMI) [Ratio] 23.8 kg/m2 Dr. Julio Draper Work Phone: 6(050)609-467601 [place] [address] 07-07-2023 15:07-0500 Body temperature 99.5 [degF] Dr. Julio Draper Work Phone: 2(178)619-596201 [place] [address] 07-07-2023 15:07-0500 Diastolic blood pressure 69 mm[Hg] Dr. Julio Draper Work Phone: 8(914)239-155901 [place] [address] 07-07-2023 15:07-0500 Heart rate 90 /min Dr. Julio Draper Work Phone: 8(409)800-406201 [place] [address] 07-07-2023 15:07-0500 Respiratory rate 18 /min Dr. Julio Draper Work Phone: 1(430)228-667001 [place] [address] 07-07-2023 15:07-0500 SaO2% (BldA) [Mass fraction] 96 % Dr. Julio Draper Work Phone: 5(717)166-114101 [place] [address] 07-07-2023 15:07-0500 Systolic blood pressure 148 mm[Hg] Dr. Julio Draper Work Phone: 2(431)892-573101 [place] [address] 07-07-2023 13:57-0500 Inhaled oxygen flow rate 3 L/min Dr. Julio Draper Work Phone: 1(973)184-929001 [place] [address] 07-07-2023 08:52-0500 Body height 162.[address] Julio Draper Work Phone: 0(779)457-072701 [place] [address] 07-07-2023 08:52-0500 Body mass index (BMI) [Ratio] 21.1 kg/m2 Dr. Julio Draper Work Phone: 7(573)239-665001 [place] [address] 07-07-2023 08:52-0500 Body weight 55.[address] Julio Draper Work Phone: 1(733)693-322701 [place] [address] 07-05-2023 20:51-0500 Diastolic blood pressure 65 mm[Hg] Dr. Julio Draper Work Phone: 5(415)691-149601 [place] [address] 07-05-2023 20:51-0500 SaO2% (BldA) [Mass fraction] 98 % Dr. Julio Draper Work Phone: 0(707)407-517101 [place] [address] 07-05-2023 20:51-0500 Systolic blood pressure 156 mm[Hg] Dr. Julio Draper Work Phone: 6(124)134-105301 [place] [address] 07-05-2023 17:43-0500 Inhaled oxygen flow rate 3 L/min Dr. Julio Draper Work Phone: 3(231)808-012001 [place] [address] 07-05-2023 16:20-0500 Heart rate 83 /min Dr. Julio Draper Work Phone: 3(585)781-730301 [place] [address] 07-05-2023 16:20-0500 Respiratory rate 25 /min Dr. Julio Draper Work Phone: 8(718)818-274901 [place] [address] 07-05-2023 15:50-0500 Body mass index (BMI) [Ratio] 23.8 kg/m2 Dr. Julio Draper Work Phone: 7(329)645-986201 [place] [address] 07-05-2023 15:50-0500 Body weight 63.[address] Julio Draper Work Phone: 4(627)250-583801 [place] [address] 07-05-2023 14:35-0500 Body height 162.[address] Julio Draper Work Phone: 2(857)603-567401 [place] [address] 07-05-2023 14:35-0500 Body temperature 98.2 [degF] Dr. Julio Draper Work Phone: 9(201)222-245201 [place] [address] 06-23-2023 12:20-0500 Body temperature 99.1 [degF] Dr. Julio Draper Work Phone: 7(916)806-710101 [place] [address] 06-23-2023 12:20-0500 Diastolic blood pressure 60 mm[Hg] Dr. Julio Draper Work Phone: 0(533)257-666801 [place] [address] 06-23-2023 12:20-0500 Heart rate 96 /min Dr. Julio Draper Work Phone: 6(893)023-588801 [place] [address] 06-23-2023 12:20-0500 Inhaled oxygen flow rate 2 L/min Dr. Julio Draper Work Phone: 4(927)950-770601 [place] [address] 06-23-2023 12:20-0500 Respiratory rate 15 /min Dr. Julio Draper Work Phone: 7(784)750-492301 [place] [address] 06-23-2023 12:20-0500 SaO2% (BldA) [Mass fraction] 95 % Dr. Julio Draper Work Phone: 9(388)042-635801 [place] [address] 06-23-2023 12:20-0500 Systolic blood pressure 125 mm[Hg] Dr. Julio Draper Work Phone: 0(255)060-262301 [place] [address] 06-23-2023 05:14-0500 Body mass index (BMI) [Ratio] 26.5 kg/m2 Dr. Julio Draper Work Phone: 6(239)287-176401 [place] [address] 06-23-2023 05:14-0500 Body weight 70.[address] Julio Draper Work Phone: 5(793)355-830401 [place] [address] 06-21-2023 11:43-0500 Body height 162.[address] Julio Draper Work Phone: 2(459)686-264001 [place] [address] 06-20-2023 11:49-0500 Diastolic blood pressure 38 mm[Hg] Dr. Julio Draper Work Phone: 7(565)029-630501 [place] [address] 06-20-2023 11:49-0500 Heart rate 66 /min Dr. Julio Draper Work Phone: 5(972)853-975401 [place] [address] 06-20-2023 11:49-0500 Respiratory rate 17 /min Dr. Julio Draper Work Phone: 2(207)303-407901 [place] [address] 06-20-2023 11:49-0500 SaO2% (BldA) [Mass fraction] 100 % Dr. Julio Draper Work Phone: 3(206)859-671301 [place] [address] 06-20-2023 11:49-0500 Systolic blood pressure 103 mm[Hg] Dr. Julio Draper Work Phone: 9(003)995-660801 [place] [address] 06-20-2023 11:32-0500 Inhaled oxygen flow rate 3 L/min Dr. Julio Draper Work Phone: 3(144)147-813401 [place] [address] 06-20-2023 10:08-0500 Body height 165.[address] Julio Draper Work Phone: 7(541)627-597701 [place] [address] 06-20-2023 10:08-0500 Body mass index (BMI) [Ratio] 30.7 kg/m2 Dr. Julio Draper Work Phone: 1(612)811-940170 [place] [address] 06-20-2023 10:08-0500 Body temperature 98.4 [degF] Dr. Julio Draper Work Phone: 3(438)365-757501 [place] [address] 06-20-2023 10:08-0500 Body weight 83.[address] Julio Draper Work Phone: 1(364)128-451301 [place] [address] 06-16-2023 14:42-0500 Body temperature 98.2 [degF] Dr. Julio Draper Work Phone: 4(772)771-706701 [place] [address] 06-16-2023 14:42-0500 Diastolic blood pressure 56 mm[Hg] Dr. Julio Draper Work Phone: 3(791)385-023701 [place] [address] 06-16-2023 14:42-0500 Heart rate 75 /min Dr. Julio Draper Work Phone: 1(677)197-698701 [place] [address] 06-16-2023 14:42-0500 Inhaled oxygen flow rate 2 L/min Dr. Julio Draper Work Phone: 6(128)830-243270 [place] [address] 06-16-2023 14:42-0500 Respiratory rate 17 /min Dr. Julio Draper Work Phone: 7(444)190-036970 [place] [address] 06-16-2023 14:42-0500 SaO2% (BldA) [Mass fraction] 93 % Dr. Julio Draper Work Phone: 1(640)905-255301 [place] [address] 06-16-2023 14:42-0500 Systolic blood pressure 111 mm[Hg] Dr. Julio Draper Work Phone: 5(543)128-355770 [place] [address] 06-16-2023 13:17-0500 Inhaled oxygen flow rate 2 L/min Dr. Julio Draper Work Phone: 9(862)515-533201 [place] [address] 06-16-2023 13:17-0500 SaO2% (BldA) [Mass fraction] 91 % Dr. Julio Draper Work Phone: 9(421)605-807801 [place] [address] 06-16-2023 10:45-0500 Heart rate 73 /min Dr. Julio Draper Work Phone: 6(467)530-703101 [place] [address] 06-16-2023 10:45-0500 Respiratory rate 18 /min Dr. Julio Draper Work Phone: 4(572)893-308701 [place] [address] 06-16-2023 10:22-0500 Body temperature 98.8 [degF] Dr. Julio Draper Work Phone: 5(168)952-844101 [place] [address] 06-16-2023 10:22-0500 Diastolic blood pressure 52 mm[Hg] Dr. Julio Draper Work Phone: 8(784)505-826001 [place] [address] 06-16-2023 10:22-0500 Systolic blood pressure 110 mm[Hg] Dr. Julio Draper Work Phone: 5(882)477-538601 [place] [address] 06-16-2023 05:09-0500 Body mass index (BMI) [Ratio] 26.1 kg/m2 Dr. Julio Draper Work Phone: 6(157)539-500501 [place] [address] 06-16-2023 05:09-0500 Body weight [address] Julio Draper Work Phone: 7(012)011-561601 [place] [address] 06-15-2023 16:02-0500 Body height 162.[address] Julio Draper Work Phone: 2(417)794-779101 [place] [address] 06-09-2023 23:00-0500 Inhaled oxygen concentration 45 % Dr. Julio Draper Work Phone: 0(266)331-735701 [place] [address] 06-06-2023 14:00-0500 Body temperature 99.7 [degF] Dr. Julio Draper Work Phone: 2(389)878-266401 [place] [address] 06-06-2023 14:00-0500 Diastolic blood pressure 73 mm[Hg] Dr. Julio Draper Work Phone: 6(119)350-884901 [place] [address] 06-06-2023 14:00-0500 Systolic blood pressure 145 mm[Hg] Dr. Julio Draper Work Phone: 8(435)236-200501 [place] [address] 06-06-2023 03:46-0500 Heart rate 80 /min Dr. Julio Draper Work Phone: 7(667)572-489901 [place] [address] 06-06-2023 03:46-0500 Inhaled oxygen concentration 32 % Dr. Julio Draper Work Phone: 0(018)180-083601 [place] [address] 06-06-2023 03:46-0500 Respiratory rate 20 /min Dr. Julio Draper Work Phone: 8(721)374-324001 [place] [address] 06-06-2023 03:46-0500 SaO2% (BldA) [Mass fraction] 93 % Dr. Julio Draper Work Phone: 2(378)352-464201 [place] [address] 06-05-2023 20:00-0500 Inhaled oxygen flow rate 60 L/min Dr. Julio Draper Work Phone: 1(580)050-538501 [place] [address] 06-04-2023 03:06-0500 Body mass index (BMI) [Ratio] 28.4 kg/m2 Dr. Julio Draper Work Phone: 4(977)540-162570 [place] [address] 06-04-2023 03:06-0500 Body weight 75.[address] Julio Draper Work Phone: 1(057)510-496801 [place] [address] 06-03-2023 10:29-0500 Body height 162.[address] Julio Draper Work Phone: 5(045)321-995501 [place] [address] 06-02-2023 11:24-0500 Diastolic blood pressure 62 mm[Hg] [facility] 06-02-2023 11:24-0500 Heart rate 103 /min [facility] 06-02-2023 11:24-0500 Respiratory rate 28 /min [facility] 06-02-2023 11:24-0500 SaO2% (BldA) [Mass fraction] 98 % [facility] 06-02-2023 11:24-0500 Systolic blood pressure 118 mm[Hg] [facility] 06-02-2023 10:00-0500 Inhaled oxygen concentration 50 % [facility] 06-02-2023 09:03-0500 Body temperature 100.9 [degF] [facility] 06-02-2023 08:59-0500 Body height 162.99 cm [facility] 06-02-2023 08:59-0500 Body mass index (BMI) [Ratio] 28 kg/m2 [facility] 06-02-2023 08:59-0500 Body weight 74.4 kg [facility] 03-03-2023 14:22-0400 SaO2% (BldA) [Mass fraction] 88 % Magali Nieves MD Work Phone: [facility] 03-03-2023 13:56-0400 Body weight 68.95 kg Magali Nieves MD Work Phone: [facility] 03-03-2023 13:56-0400 Heart rate 73 /min Magali Nieves MD Work Phone: [facility] 03-03-2023 13:56-0400 Respiratory rate 15 /min Magali Nieves MD Work Phone: [facility] 01-07-2023 15:39-0400 Body temperature 97.81 [degF] Julio Draper MD Work Phone: [facility] 01-07-2023 15:39-0400 Body weight 71.22 kg Julio Draper MD Work Phone: [facility] 01-07-2023 15:39-0400 Diastolic blood pressure 70 mm[Hg] Julio Draper MD Work Phone: [facility] 01-07-2023 15:39-0400 Heart rate 91 /min Julio Draper MD Work Phone: [facility] 01-07-2023 15:39-0400 Respiratory rate 22 /min Julio Draper MD Work Phone: [facility] 01-07-2023 15:39-0400 SaO2% (BldA) [Mass fraction] 94 % Julio Draper MD Work Phone: [facility] 01-07-2023 15:39-0400 Systolic blood pressure 133 mm[Hg] Julio Draper MD Work Phone: [facility] 12-10-2022 14:21-0400 Body weight 69.85 kg Magali Nieves MD Work Phone: [facility] 12-10-2022 14:21-0400 Diastolic blood pressure 76 mm[Hg] Magali Nieves MD Work Phone: [facility] 12-10-2022 14:21-0400 Heart rate 94 /min Magali Nieves MD Work Phone: [facility] 12-10-2022 14:21-0400 Respiratory rate 18 /min Magali Nieves MD Work Phone: [facility] 12-10-2022 14:21-0400 SaO2% (BldA) [Mass fraction] 94 % Magali Nieves MD Work Phone: [facility] 12-10-2022 14:21-0400 Systolic blood pressure 132 mm[Hg] Magali Nieves MD Work Phone: [facility] 12-03-2022 08:16-0400 Body temperature 97.8 [degF] Dr. Julio Draper Work Phone: [facility] 12-03-2022 08:16-0400 Diastolic blood pressure 63 mm[Hg] Dr. Julio Draper Work Phone: [facility] 12-03-2022 08:16-0400 Heart rate 108 /min Dr. Julio Draper Work Phone: [facility] 12-03-2022 08:16-0400 Inhaled oxygen flow rate 2 L/min Dr. Julio Draper Work Phone: [facility] 12-03-2022 08:16-0400 Respiratory rate 20 /min Dr. Julio Draper Work Phone: [facility] 12-03-2022 08:16-0400 SaO2% (BldA) [Mass fraction] 97 % Dr. Julio Draper Work Phone: [facility] 12-03-2022 08:16-0400 Systolic blood pressure 139 mm[Hg] Dr. Julio Draper Work Phone: [facility] 11-30-2022 13:27-0400 Body height 162.[address] Julio Draper Work Phone: 1(846)956-517201 [place] [address] 11-30-2022 13:27-0400 Body mass index (BMI) [Ratio] 26.9 kg/m2 Dr. Jluio Draper Work Phone: 8(615)044-917470 [place] [address] 11-30-2022 13:27-0400 Body weight [address] Julio Draper Work Phone: [facility] 11-30-2022 12:47-0400 Body temperature 99.2 [degF] [facility] 11-30-2022 12:47-0400 Diastolic blood pressure 63 mm[Hg] [facility] 11-30-2022 12:47-0400 Heart rate 120 /min [facility] 11-30-2022 12:47-0400 Inhaled oxygen flow rate 3 L/min [facility] 11-30-2022 12:47-0400 Respiratory rate 18 /min [facility] 11-30-2022 12:47-0400 SaO2% (BldA) [Mass fraction] 100 % [facility] 11-30-2022 12:47-0400 Systolic blood pressure 123 mm[Hg] [facility] 11-30-2022 11:29-0400 Body mass index (BMI) [Ratio] 26.8 kg/m2 [facility] 11-30-2022 11:29-0400 Body weight 70.9 kg [facility] 11-30-2022 10:36-0400 Body height 162.56 cm [facility] 11-28-2022 04:00-0400 Diastolic blood pressure 67 mm[Hg] [facility] 11-28-2022 04:00-0400 Heart rate 98 /min [facility] 11-28-2022 04:00-0400 Respiratory rate 19 /min [facility] 11-28-2022 04:00-0400 SaO2% (BldA) [Mass fraction] 99 % [facility] 11-28-2022 04:00-0400 Systolic blood pressure 132 mm[Hg] [facility] 11-28-2022 03:23-0400 Inhaled oxygen flow rate 2 L/min [facility] 11-28-2022 00:44-0400 Body height 162.56 cm [facility] 11-28-2022 00:44-0400 Body mass index (BMI) [Ratio] 27 kg/m2 [facility] 11-28-2022 00:44-0400 Body temperature 97 [degF] [facility] 11-28-2022 00:44-0400 Body weight 71.4 kg [facility] 11-15-2022 13:27-0400 Body weight 70.76 kg Tasha Older FRONT END MECHANIC.CISCO CERTIF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 Work Phone: [facility] 11-15-2022 13:27-0400 Diastolic blood pressure 64 mm[Hg] Tasha Older FRONT END MECHANIC.[employer]ISCO CERTIF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 Work Phone: [facility] 11-15-2022 13:27-0400 Heart rate 97 /min Tasha Older FRONT END MECHANIC.CISCO CERTIF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 Work Phone: [facility] 11-15-2022 13:27-0400 Respiratory rate 18 /min Tasha Older FRONT END MECHANIC.CISCO CERTIF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 Work Phone: [facility] 11-15-2022 13:27-0400 SaO2% (BldA) [Mass fraction] 94 % Tasha Older FRONT END MECHANIC.CISCO CERTIF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 Work Phone: [facility] 11-15-2022 13:27-0400 Systolic blood pressure 140 mm[Hg] Tasha Older FRONT END MECHANIC.CISCO CERTIF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 Work Phone: [facility] 11-11-2022 14:32-0400 Body temperature 98.01 [degF] Jessie Older FRONT END MECHANIC.CISCO CERTIF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 Work Phone: [facility] 11-11-2022 14:32-0400 Body weight 71.22 kg Jessie Older FRONT END MECHANIC.CISCO CERTIF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 Work Phone: [facility] 11-11-2022 14:32-0400 Diastolic blood pressure 90 mm[Hg] Jessie Older FRONT END MECHANIC.[employer]ISCO CERTIF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 Work Phone: [facility] 11-11-2022 14:32-0400 Heart rate 80 /min Jessie Older FRONT END MECHANIC.CISCO CERTIF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 Work Phone: [facility] 11-11-2022 14:32-0400 Respiratory rate 16 /min Jessie Older FRONT END MECHANIC.CISCO CERTIF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 Work Phone: [facility] 11-11-2022 14:32-0400 SaO2% (BldA) [Mass fraction] 92 % Jessie Older FRONT END MECHANIC.CISCO CERTIF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 Work Phone: [facility] 11-11-2022 14:32-0400 Systolic blood pressure 138 mm[Hg] Jessie Older FRONT END MECHANIC.CISCO CERTIF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 Work Phone: [facility] 05-25-2022 13:14-0500 Body weight 72.58 kg Magali Nieves MD Work Phone: [facility] 05-25-2022 13:14-0500 SaO2% (BldA) [Mass fraction] 98 % Magali Nieves MD Work Phone: [facility] 05-03-2022 13:56-0400 Body temperature 97.7 [degF] Julio Draper MD Work Phone: [facility] 05-03-2022 13:56-0400 Body weight 72.12 kg Julio Draper MD Work Phone: [facility] 05-03-2022 13:56-0400 Diastolic blood pressure 74 mm[Hg] Julio Draper MD Work Phone: [facility] 05-03-2022 13:56-0400 Heart rate 84 /min Julio Draper MD Work Phone: [facility] 05-03-2022 13:56-0400 Respiratory rate 16 /min Julio Draper MD Work Phone: [facility] 05-03-2022 13:56-0400 SaO2% (BldA) [Mass fraction] 97 % Julio Draper MD Work Phone: [facility] 05-03-2022 13:56-0400 Systolic blood pressure 138 mm[Hg] Julio Draper MD Work Phone: [facility] 01-21-2022 15:21-0400 Body height 162.6 cm Luna Fan PA-C Work Phone: [facility] 01-21-2022 15:21-0400 Body weight 71.67 kg Luna Fan PA-C Work Phone: [facility] 01-21-2022 15:21-0400 Heart rate 87 /min Luna Fan PA-C Work Phone: [facility] 01-21-2022 15:21-0400 Respiratory rate 16 /min Luna Fan PA-C Work Phone: [facility] 01-21-2022 15:21-0400 SaO2% (BldA) [Mass fraction] 98 % Luna Fan PA-C Work Phone: [facility] 01-21-2022 15:16-0400 Body height 162.6 cm Respiratory Wstr Work Phone: [facility] 01-21-2022 15:16-0400 Body weight 71.67 kg Respiratory Wstr Work Phone: [facility] 01-21-2022 15:16-0400 Heart rate 87 /min Respiratory Wstr Work Phone: [facility] 01-21-2022 15:16-0400 SaO2% (BldA) [Mass fraction] 98 % Respiratory Wstr Work Phone: [facility] 11-12-2021 12:49-0400 Body weight 71.22 kg Reema Jiménez FRONT END MECHANIC.SENIOR MARKETING SPECIALIST Work Phone: [facility] 11-12-2021 12:49-0400 Diastolic blood pressure 80 mm[Hg] Reema Jiménez FRONT END MECHANIC.SENIOR MARKETING SPECIALIST Work Phone: [facility] 11-12-2021 12:49-0400 Heart rate 80 /min Reema Jiménez FRONT END MECHANIC.SENIOR MARKETING SPECIALIST Work Phone: [facility] 11-12-2021 12:49-0400 Respiratory rate 16 /min Reema Jiménez FRONT END MECHANIC.SENIOR MARKETING SPECIALIST Work Phone: [facility] 11-12-2021 12:49-0400 Systolic blood pressure 130 mm[Hg] Reema Jiménez FRONT END MECHANIC.SENIOR MARKETING SPECIALIST Work Phone: [facility] 11-02-2021 11:22-0400 Body temperature 98.1 [degF] Rachel Praisler-Wood FRONT END MECHANIC.CISCO CERTIF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 Work Phone: [facility] 11-02-2021 11:22-0400 Body weight 71.4 kg Rachel Praisler-Wood FRONT END MECHANIC.CISCO CERTIF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 Work Phone: [facility] 11-02-2021 11:22-0400 Diastolic blood pressure 94 mm[Hg] Rachel Praisler-Wood FRONT END MECHANIC.CISCO CERTIF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 Work Phone: [facility] 11-02-2021 11:22-0400 Heart rate 91 /min Rachel Praisler-Wood FRONT END MECHANIC.CISCO CERTIF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 Work Phone: [facility] 11-02-2021 11:22-0400 Respiratory rate 22 /min Rachel Praisler-Wood FRONT END MECHANIC.CISCO CERTIF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 Work Phone: [facility] 11-02-2021 11:22-0400 SaO2% (BldA) [Mass fraction] 90 % Rachel Praisler-Wood FRONT END MECHANIC.CISCO CERTIF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 Work Phone: [facility] 11-02-2021 11:22-0400 Systolic blood pressure 132 mm[Hg] Rachel Mayo APRN.CISCO CERTIF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 Work Phone: [facility] 10-14-2021 10:22-0400 Body temperature 98.01 [degF] Ev Hinkle APRN.CISCO CERTIF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 Work Phone: [facility] 10-14-2021 10:22-0400 Body weight 71.58 kg Ev Hinkle APRN.CISCO CERTIF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 Work Phone: [facility] 10-14-2021 10:22-0400 Diastolic blood pressure 82 mm[Hg] Ev Hinkle APRN.CISCO CERTIF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 Work Phone: [facility] 10-14-2021 10:22-0400 Heart rate 76 /min Ev Hinkle APRN.CISCO CERTIF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 Work Phone: [facility] 10-14-2021 10:22-0400 Respiratory rate 18 /min Ev Hinkle APRN.CISCO CERTIF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 Work Phone: [facility] 10-14-2021 10:22-0400 SaO2% (BldA) [Mass fraction] 96 % Ev Hinkle APRN.CISCO CERTIF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 Work Phone: [facility] 10-14-2021 10:22-0400 Systolic blood pressure 138 mm[Hg] Ev Hinkle APRN.CISCO CERTIF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 Work Phone: [facility] Encounters Encounter Date Encounter Type Care Provider Facility Start: 01-24-2025 End: 01-24-2025 Patient encounter procedure Lorna SILVESTRE -[facility] Work Phone: Start: 01-24-2025 End: 01-24-[address] Julio Draper MD Work Phone: -[facility] Start: 01-17-2025 ambulatory Cheryl Littlejohn Facility:[facility] Start: 01-03-2025 ambulatory uJlio Ansarii ty:[facility] Start: 01-03-2025 Non-patient / Non-visit [facility]. Livan cantu MD -[facility] Start: 01-03-2025 End: 01-03-2025 Admission to same day surgery center Dr. Livan Love MD -Senior Biostatistician/Group Leader/Special Procedures Work Phone: Start: 01-03-2025 End: 01-03-[address] Julio Draper MD Work Phone: -Senior Biostatistician/Group Leader/Special Procedures Start: 11-29-2024 End: 11-29-2024 Telephone encounter Magali Nieves MD Work Phone: [facility] [place] Comment on above: Patient Question (O2 monitor results) Start: 11-20-2024 ambulatory Julio Draper Facili ty:[facility] Start: 11-20-2024 Non-patient / Non-visit Dr. Alayna garcia MD -[facility] Work Phone: Start: 11-20-2024 End: 11-20-2024 Patient encounter procedure Lorna SILVESTRE -Pulmonary Services/Neurology Work Phone: Start: 11-20-2024 End: 11-20-2024 ambulatory Julio Draper Facility:[facility] Start: 11-16-2024 End: 11-16-2024 Telephone encounter Magali Nieves MD Work Phone: Pulmonary Medicine Comment on above: Results Start: 11-14-2024 End: 11-14-2024 Office outpatient visit 15 minutes Jean-Pierre Vitale APRN.CNP Work Phone: Pulmonary Medicine Comment on above: COPD, severe (HCC) ( Primary Dx); Ground glass opacity present on imaging of lung; Chronic hypoxemic respiratory failure (HCC) Start: 11-14-2024 End: 11-14-2024 ambulatory JULIO DRAPER Facility:[facility] Start: 11-14-2024 End: 11-19-2024 Telephone encounter Julio Draper MD Work Phone: [facility] [place] Comment on above: Patient Update Start: 11-13-2024 End: 11-13-2024 Office outpatient visit 15 minutes Julio Draper MD Work Phone: [facility] [place] Comment on above: Primary hypertension (Primary Dx); Chronic obstructive pulmonary disease with acute exacerbation (HCC); Coronary artery disease involving [place] coronary artery of [place] heart without angina pectoris; Paroxysmal atrial fibrillation (HCC) Start: 11-13-2024 End: 11-13-2024 ambulatory JULIO DRAPER Facility:[facility] Start: 11-06-2024 ambulatory JULIO DRAPER Faci lity:[facility] Start: 11-06-2024 End: 11-06-2024 Subsequent hospital visit by physician [facility] (I-Stat) Work Phone: Cat Scan Comment on above: Ground glass opacity present on imaging of lung [R91.8] Start: 11-01-2024 End: 11-01-2024 [facility]: Start: 11-01-2024 End: 11-01-2024 [facility] Work [facility]: Start: 11-01-2024 End: 11-01-2024 Refill Magali Nieves MD Work Phone: Pulmonary Medicine Comment on above: Refill Request Start: 10-31-2024 End: 10-31-2024 Dr[facility] Work [facility]: Start: 10-31-2024 End: 10-31-2024 Emergency department patient visit Dr. Dariel Aguilar -Emergency Department Work Phone: Start: 10-11-2024 End: 10-11-2024 Follow-up encounter Julio Draper MD Work Phone: Internal Medicine [place] Start: 10-09-2024 ambulatory Kelsea Montague Facility: [facility] Start: 10-08-2024 End: 10-08-2024 Subsequent hospital visit by physician Xr [facility] [place] Work Phone: Radiology Comment on above: Pneumonia of right l ower lobe due to infectious organism [J18.9] Start: 10-08-2024 End: 10-08-2024 ambulatory JULIO DRAPER Facility:[facility] Start: 10-08-2024 End: 10-08-2024 Office outpatient visit 25 minutes Julio Draper MD Work Phone: Internal Medicine [place] Comment on above: Chronic obstructive pulmonary disease with acute exacerbation (HCC) (Primary Dx); History of pneumonia Start: 10-08-2024 End: 10-08-2024 Telephone encounter Julio Draper MD Work Phone: Internal Medicine [place] Comment on above: Breathing difficulti es Start: 09-26-2024 End: 09-26-2024 Telephone encounter Julio rDaper MD Work Phone: Internal Medicine [place] Comment on above: Home Health Nursing Update Start: 09-24-2024 End: 09-24-2024 Telephone encounter Julio Draper MD Work Phone: Internal Medicine [place] Comment on above: Referral Update Start: 09-20-2024 End: 09-25-2024 Telephone encounter Julio Draper MD Work Phone: Internal Medicine [place] Comment on above: Forms (Disability fo tisha from [employer]) Start: 09-20-2024 End: 09-20-2024 ambulatory JULIO DRAPER Facility:[facility] Start: 09-20-2024 End: 09-20-2024 Patient encounter procedure Cheryl SILVESTRE -[facility] Work Phone: Start: 09-20-2024 End: 09-20-2024 Cheryl SILVESTRE [facility] Work Phone: Start: 09-20-2024 End: 09-20-2024 ambulatory Cheryl Littlejohn Facility:[facility] Start: 09-19-2024 End: 09-19-2024 Office outpatient visit 25 minutes Julio Draper MD Work Phone: Internal Medicine [place] Comment on above: Acute pain of right shoulder (Primary Dx); Chronic obstructive pulmonary disease with acute exacerbation (HCC) Start: 09-19-2024 End: 09-19-2024 ambulatory JULIO DRAPER Facility:[facility] Start: 09-17-2024 End: 09-17-2024 Dr. Julio Draper MD Work Phone: -Emergency Department Work Phone: Start: 09-17-2024 End: 09-17-2024 Emergency department patient visit Dr. Julio Draper MD Work Phone: [facility] Work Phone: Start: 09-17-2024 End: 09-17-2024 ambulatory Julio Draper MD Work Phone: [facility] Medicine [place] Comment on above: right shoulder pain Start: 09-07-2024 End: 11-07-2024 Follow-up encounter Julio Draper MD Work Phone: Internal Medicine [place] Start: 09-07-2024 End: 09-07-2024 Telephone encounter Julio Draper MD Work Phone: Internal Medicine [place] Comment on above: Orders FYI-No Action Needed (home health recert) Start: 09-06-2024 ambulatory Livan Love Facility[facility] Start: 09-06-2024 Non-patient / Non-visit Dr. Livan cantu MD -[facility] Start: 09-06-2024 Dr. Livan Love MD -[facility] Start: 09-06-2024 End: 09-06-2024 Admission to same day surgery center Dr. Livan Love MD -Senior Biostatistician/Group Leader/Special Procedures Work Phone: Start: 09-06-2024 End: 09-06-2024 Dr. Livan Love MD -Senior Biostatistician/Group Leader/Special Procedures Work Phone: Start: 09-06-2024 End: 09-06-2024 ambulatory Julio Draper Facility:[facility] Start: 09-04-2024 End: 09-04-2024 Office outpatient visit 15 minutes Jean-Pierre Vitale APRN.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 Work Phone: Pulmonary Medicine Comment on above: COPD, severe (HCC) ( Primary Dx); Chronic hypoxemic respiratory failure (HCC); Ground glass opacity present on imaging of lung Start: 09-04-2024 End: 09-04-2024 ambulatory JEAN-PIERRE VITALE Facility:[facility] Start: 08-30-2024 End: 08-30-2024 ambulatory JULIO DRAPER Facility:[facility] Start: 08-30-2024 End: 08-30-2024 Subsequent hospital visit by physician Bone Density [facility] Work Phone: Radiology Comment on above: Age-related osteopor osis without current pathological fracture [M81.0] Start: 08-14-2024 End: 08-14-2024 Telephone encounter Julio Draper MD Work Phone: Internal Medicine [place] Comment on above: Orders Start: 08-14-2024 End: 09-14-2024 ambulatory Julio Draper MD Work Phone: Internal [facility] [place] Start: 08-14-2024 End: 08-14-2024 Office outpatient visit 25 minutes Julio Draper MD Work Phone: Internal Medicine [place] Comment on above: Chronic obstructive pulmonary disease with acute exacerbation (HCC) (Primary Dx); Chronic respiratory failure with hypoxia (HCC); Lung nodule; Malnutrition of mild degree (HCC); ESRD (end stage renal disease) (HCC) Start: 08-10-2024 End: 08-11-2024 Telephone encounter Magali Nieves MD Work Phone: Pulmonary Medicine Comment on above: Patient Update; Rupa ent Question Home Health Nursing- Plan Update Start: 08-10-2024 Dr. Robel Funk [facility] Work Phone: Start: 08-09-2024 Dr. Robel Funk [facility] Work Phone: Start: 08-08-2024 Dr. Yemi Celaya MD -[facility] Work Phone: Start: 08-07-2024 Dr. Yemi Celaya MD -[facility] Work Phone: Start: 08-06-2024 ambulatory Yemi Celaya Facility: [facility] Start: 08-06-2024 End: 08-10-2024 Evaluation and management of inpatient Robel Funk Facility:[facility] Start: 08-06-2024 End: 08-10-2024 Dr. Robel Funk DO -Progressive Care Unit Work Phone: Start: 08-03-2024 End: 08-03-2024 Refill Julio Draper MD Work Phone: Internal Medicine [place] Comment on above: Refill Request Start: 08-02-2024 End: 08-03-2024 Dr[facility] Start: 08-02-2024 End: 08-03-2024 Emergency department patient visit Dariel Combs Facility:[facility] Start: 08-01-2024 End: 08-02-2024 Telephone encounter Julio Draper MD Work Phone: Internal Medicine [place] Comment on above: Patient Update Start: 07-31-2024 End: 07-31-2024 ambulatory JULIO DRAPER Facility:[facility] Start: 07-31-2024 End: 07-31-2024 Patient encounter procedure Julio Draper MD Work Phone: Internal Medicine [place] Comment on above: Sepsis, due to unspe cified organism, unspecified whether acute organ dysfunction present (HCC) (Primary Dx); Pneumonia of right lower lobe due to infectious organism; Chronic obstructive pulmonary disease with acute exacerbation (HCC); Chronic respiratory failure with hypoxia (HCC); ESRD (end stage renal disease) (HCC) Start: 07-30-2024 End: 07-31-2024 Telephone encounter Julio Draper MD Work Phone: Internal Medicine [place] Comment on above: [facility]; [facility] HH, nurs ing plan of care Start: 07-27-2024 Dr. Gabby gomes MD -[place] [facility] Work Phone: Start: 07-26-2024 Dr. Gabby gomes MD -[place] [facility] Work Phone: Start: 07-25-2024 Dr. Gabby gomes MD -[place] [facility] Work Phone: Start: 07-24-2024 Dr. Gabby gomes MD -[place] [facility] Work Phone: Start: 07-23-2024 ambulatory Gabby Sutherland Facility :[facility] Start: 07-23-2024 End: 07-27-2024 Evaluation and management of inpatient Gabby Sutherland Facility:[facility] Start: 07-23-2024 End: 07-27-2024 Dr. Gabby Sutherland MD -Progressive Care Unit Work Phone: Start: 07-18-2024 End: 07-18-2024 ambulatory JULIO DRAPER Facility:[facility] Start: 07-18-2024 End: 07-18-2024 Office outpatient visit 15 minutes Julio Draper MD Work Phone: Internal Medicine [place] Comment on above: Chronic obstructive pulmonary disease with acute exacerbation (HCC) (Primary Dx); Pneumonia due to infectious organism, unspecified laterality, unspecified part of lung; Chronic respiratory failure with hypoxia (HCC); Lung nodule; ESRD (end stage renal disease) (HCC) Start: 07-12-2024 End: 07-13-2024 Telephone encounter Julio Draper MD Work Phone: Internal Medicine [place] Comment on above: Home Care Management (Nursing plan of care) Start: 07-11-2024 Dr. Diana Santillan MD [facility] Work Phone: Start: 07-10-2024 Dr. Diana Santillan MD -[facility] Work Phone: Start: 07-10-2024 Encounter for other preprocedural examination Livan [facility] Start: 07-09-2024 End: 07-09-2024 Telephone encounter Julio Draper MD Work Phone: Internal Medicine [place] Comment on above: Home Health Orders Start: 07-09-2024 Dr. Mihai Izaguirre MD -[facility] Work Phone: Start: 07-08-2024 ambulatory Diana Santillan [facility] Start: 07-08-2024 End: 07-11-2024 Evaluation and management of inpatient Juloi Draper Facility:[facility] Start: 07-08-2024 End: 07-11-2024 Dr. Diana Santillan MD -[facility] Work Phone: Start: 07-05-2024 End: 07-05-2024 ambulatory KEHINDE PEDRO Facility:[facility] Start: 07-05-2024 End: 07-05-2024 Office outpatient visit 15 minutes Julio Draper MD Work Phone: Internal Medicine [place] Comment on above: Chronic obstructive pulmonary disease with acute exacerbation (HCC) (Primary Dx); Chronic respiratory failure with hypoxia (HCC); Primary hypertension; Paroxysmal atrial fibrillation (HCC) Start: 07-03-2024 End: 07-03-2024 ambulatory Julio Draper MD Work Phone: Internal Medicine [place] Comment on above: Breathing Problem Start: 07-03-2024 End: 07-03-2024 Dr. Livan Murry DO -Emergency Departme nt Work Phone: Start: 07-03-2024 End: 07-03-2024 Emergency department patient visit Julio Draper Facility:[facility] Start: 06-19-2024 End: 06-19-2024 Cheryl SILVESTRE -[place] [facility] Work Phone: Start: 06-19-2024 End: 06-19-2024 ambulatory Julio Draper Facility:[facility] Start: 06-15-2024 End: 06-15-2024 Refill Julio Draper MD Work Phone: Coumadin [facility] Comment on above: Refill Request Start: 06-07-2024 End: 06-07-2024 ambulatory JULIO DRAPER Facility:[facility] Start: 06-07-2024 End: 06-07-2024 Patient encounter procedure Magali Nieves MD Work Phone: Pulmonary Medicine Comment on above: Ground glass opacity present on imaging of lung (Primary Dx); COPD, severe (HCC); Chronic hypoxemic respiratory failure (HCC); Former smoker; ESRD needing dialysis (HCC) Start: 06-05-2024 ambulatory Julio Draper Facili ty:[facility] Start: 06-05-2024 Dr. Livan Love MD -[facility] Start: 06-05-2024 End: 06-05-2024 Dr. Livan Love MD -[facility] Start: 06-05-2024 End: 06-05-2024 ambulatory Julio Draper Facility:[facility] Start: 05-24-2024 End: 05-24-2024 Dr. Livan Love MD -[facility] Work Phone: Start: 05-24-2024 End: 05-24-2024 ambulatory Julio Draper Facility:[facility] Start: 05-15-2024 End: 05-15-2024 ambulatory KEHINDE DRAPER Facility:[facility] Start: 05-15-2024 End: 05-15-2024 Office outpatient visit 25 minutes Julio Draper MD Work Phone: Internal Medicine [place] Comment on above: Muscle spasm (Primar y Dx); Primary hypertension; ESRD (end stage renal disease) ([facility]); Chronic obstructive pulmonary disease with acute exacerbation ([facility]); Age-related osteoporosis without current pathological fracture Start: 05-10-2024 End: 05-10-2024 ambulatory KEHINDE DRAPER Facility:[facility] Start: 05-10-2024 End: 05-10-2024 Subsequent hospital visit by physician [facility] (I-Stat) Work Phone: Cat Scan Comment on above: Lung nodules [R91.8] Start: 05-01-2024 End: 05-01-2024 ambulatory Julio Draper [facility] Start: 04-19-2024 End: 04-19-2024 ambulatory Julio Draper [facility] Start: 04-16-2024 End: 04-16-2024 Telephone encounter Magali Nieves MD Work Phone: Pulmonary Medicine Comment on above: Patient Update; Tereza thing Problem concern with crackli ng lungs/SOB Start: 04-12-2024 End: 04-12-2024 ambulatory KEHINDE DRAPER Facility:[facility] Start: 04-12-2024 End: 04-12-2024 Office outpatient visit 25 minutes Julio Draper MD Work Phone: Internal Medicine [place] Comment on above: Muscle spasm (Primar y Dx); ESRD (end stage renal disease) (HCC); Primary hypertension; Coronary artery disease involving [place] coronary artery of [place] heart without angina pectoris; Chronic obstructive pulmonary disease with acute exacerbation (HCC) Start: 04-09-2024 End: 04-09-2024 Emergency department patient visit Julio Draper Facility:[facility] Start: 04-05-2024 End: 04-05-[address] [facility] Facility:[facility] Start: 03-20-2024 End: 03-20-2024 Telephone encounter Julio Draper MD Work Phone: Internal Medicine [place] Comment on above: Forms Start: 03-19-2024 End: 03-19-2024 Emergency department patient visit Julio Draper Facility:[facility] Start: 03-17-2024 End: 03-22-2024 Refill Julio Draper MD Work Phone: [place] [facility] Comment on above: Refill Request Start: 03-13-2024 ambulatory Julio Draper Facili ty[facility] Start: 03-13-2024 End: 03-13-2024 ambulatory Julio Draper Facility:[facility] Start: 03-06-2024 End: 03-06-2024 Telephone encounter Julio Draper MD Work Phone: Internal Medicine [place] Comment on above: disability forms fro m [employer] Start: 02-22-2024 End: 02-22-2024 Telephone encounter Julio Draper MD Work Phone: Internal Medicine [place] Start: 02-20-2024 End: 02-20-2024 ambulatory JULIO DRAPER Facility:[facility] Start: 02-20-2024 End: 02-20-2024 Subsequent hospital visit by physician Dylon Laird MD Work Phone: Gastroenterology Comment on above: 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, 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] Start: 02-17-2024 Telephone encounter Luna Swarzt PA-C Work Phone: Pulmonary Medicine Comment on above: Medication Problem Start: 02-13-2024 Telephone encounter Erickson Sotomayor [facility] Comment on above: Appointment Start: 02-09-2024 End: 02-09-2024 ambulatory Ryan Tafoya MD Work Phone: Gastroenterology Comment on above: 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, acquired (Primary Dx) Dialysis work around Start: 02-09-2024 Telephone encounter Julio russo MD Work Phone: Internal Medicine [place] Comment on above: Patient Update Start: 02-09-2024 End: 02-09-2024 Telemedicine consultation with patient Ryan Tafoya MD Work Phone: Gastroenterology Start: 01-13-2024 Telephone encounter Julio russo MD Work Phone: Internal Medicine [place] Comment on above: Release Point form Start: 01-11-2024 Telephone encounter Julio russo MD Work Phone: Internal Medicine [place] Comment on above: Forms Start: 12-16-2023 Refill Julio doss MD Work Phone: Internal Medicine [place] Comment on above: Refill Request Start: 11-14-2023 Telephone encounter Julio russo MD Work Phone: Internal Medicine [place] Comment on above: Forms Start: 11-11-2023 End: 11-11-2023 Patient encounter procedure Julio Draper MD Work Phone: Internal Medicine [place] Comment on above: Routine medical exam (Primary Dx); Chronic obstructive pulmonary disease with acute exacerbation (HCC); Chronic respiratory failure with hypoxia (HCC); ESRD (end stage renal disease) (HCC); Coagulation defect, unspecified (HCC); Coronary artery disease involving [place] coronary artery of [place] heart without angina pectoris; Essential tremor; Anemia requiring transfusions; Pleural effusion Start: 11-11-2023 End: 11-11-2023 Patient encounter status Julio Draper MD Work Phone: [facility] Work Phone: Start: 11-08-2023 End: 11-08-2023 Patient encounter procedure Luna Swartz PA-C Work Phone: Pulmonary Medicine Comment on above: Centrilobular emphys jalyn (HCC) (Primary Dx); Lung nodules; Chronic hypoxemic respiratory failure (HCC); Parapneumonic effusion; Former smoker; Hemodialysis status (HCC) Start: 11-03-2023 End: 11-03-2023 Subsequent hospital visit by physician [facility] (I-Stat) Work Phone: Cat Scan Comment on above: Lung nodules [R91.8] Start: 10-31-2023 End: 10-31-2023 Subsequent hospital visit by physician Xr [facility] [place] Work Phone: Radiology Comment on above: Chronic obstructive pulmonary disease with acute exacerbation (HCC) [J44.1] Start: 10-31-2023 End: 10-31-2023 Patient encounter procedure Julio Draper MD Work Phone: Internal Medicine [place] Comment on above: Chronic obstructive pulmonary disease with acute exacerbation (HCC) (Primary Dx); Chronic respiratory failure with hypoxia (HCC); ESRD (end stage renal disease) (HCC); History of GI bleed Start: 10-31-2023 ambulatory Julio doss MD Work Phone: Internal Medicine [place] Comment on above: Cough Start: 10-25-2023 Telephone encounter Julio russo MD Work Phone: Internal Medicine [place] Comment on above: Forms Start: 10-10-2023 ambulatory Julio doss MD Work Phone: Ambulatory Surgery Comment on above: colorectal cancer sc reening Start: 09-23-2023 Refill Julio doss MD Work Phone: Internal Medicine [place] Comment on above: Refill Request Start: 09-19-2023 Refill Julio doss MD Work Phone: Internal Medicine [place] Comment on above: Refill Request Start: 09-13-2023 Telephone encounter Julio russo MD Work Phone: Internal Medicine [place] Comment on above: Patient Update; Medi cation Problem; Home health orders Start: 09-07-2023 ambulatory Julio doss MD Work Phone: [facility] [place] Start: 09-06-2023 Telephone encounter Julio russo MD Work Phone: Internal Medicine [place] Comment on above: Patient Update Start: 09-03-2023 Telephone encounter Aliya Dahl MD Work Phone: [facility] Start: 09-01-2023 End: 09-01-[address] Julio Draper Work Phone: [facility] Work Phone: Start: 09-01-2023 End: 09-01-2023 Dr. Julio Draper Work Phone: [facility]-Medical Out Work Phone: Start: 08-31-2023 Telephone encounter Julio russo MD Work Phone: Internal Medicine [place] Start: 08-29-2023 Telephone encounter Julio russo MD Work Phone: Internal Medicine [place] Comment on above: Results Start: 08-25-2023 End: 08-25-2023 Patient encounter procedure Julio Draper MD Work Phone: Internal Medicine [place] Comment on above: Pneumonia due to inf ectious organism, unspecified laterality, unspecified part of lung (Primary Dx); ESRD (end stage renal disease) (HCC); Malnutrition of mild degree (HCC); Paroxysmal atrial fibrillation (HCC); Chronic obstructive pulmonary disease with acute exacerbation (HCC); Duodenal ulcer; NSTEMI (non-ST elevated myocardial infarction) (HCC); Chronic respiratory failure with hypoxia (HCC); Anemia requiring transfusions; Impacted cerumen of both ears; Hyperlipidemia, unspecified hyperlipidemia type Start: 08-25-2023 Telephone encounter Julio russo MD Work Phone: [facility] Comment on above: Follow Up Phone Call (Call back, not convenient at this time) Start: 08-23-2023 Telephone encounter Julio russo MD Work Phone: Internal Medicine [place] Comment on above: OT plan of care Start: 08-22-2023 ambulatory Genna Elizabeth [facility] Work Phone: [facility] Start: 08-22-2023 Telephone encounter Julio russo MD Work Phone: Internal Medicine [place] Comment on above: physical therapy sol n of care Patient Update; [facility] HH update / verbal order request Transition Of Care ( [facility]CM Pharmacy-Hospital discharge 08/19/23/) Start: 08-17-2023 End: 08-19-2023 Evaluation and management of inpatient JULIO DRAPER Facility:[facility] Start: 08-16-2023 End: 08-16-2023 Patient encounter procedure Magali Nieves MD Work Phone: Pulmonary Medicine Comment on above: Parapneumonic effusi on (Primary Dx); Chronic respiratory failure with hypoxia (HCC); Persistent pneumonia; Centrilobular emphysema (HCC); EARNEST (acute kidney injury) (HCC); Hemodialysis status (HCC) Start: 08-15-2023 Telephone encounter Magali Nieves MD Work Phone: Pulmonary Medicine Comment on above: Orders Home Health update Start: 08-12-2023 ambulatory Rafael doyle MD Work Phone: [facility] Comment on above: Paroxysmal atrial fi brillation (HCC) (Primary Dx) Start: 08-10-2023 Telephone encounter Magali Nieves MD Work Phone: Pulmonary Medicine Comment on above: Orders; Patient Upda te Start: 08-09-2023 Telephone encounter Ambrose menon MD Work Phone: [facility] [place] Comment on above: Appointment (Hospita l f/u appt/) Start: 08-08-2023 Telephone encounter Julio russo MD Work Phone: Internal Medicine [place] Comment on above: Forms Start: 08-05-2023 Telephone encounter Harry lopez APRN.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 Work Phone: [facility] Cardiology [place] Comment on above: Appointment Start: 07-09-2023 Dr. Julio Finnegan Work Phone: [facility] Work Phone: Start: 07-09-2023 End: 07-09-2023 Dr. Julio Draper Work Phone: [facility] Work Phone: Start: 07-08-2023 End: 07-08-2023 Dr. Julio Draper Work Phone: [facility] Work Phone: Start: 07-08-2023 Dr. Julio Finnegan Work Phone: [facility] Start: 07-08-2023 Dr. Julio Finnegan Work Phone: [facility] Work Phone: Start: 07-07-2023 End: 07-09-2023 Evaluation and management of inpatient Dr. Julio Draper Work Phone: [facility] Work Phone: Start: 07-07-2023 End: 07-09-2023 Dr. Julio Draper Work Phone: [facility]-Progressive Care Unit Work Phone: Start: 07-07-2023 Dr. Julio Finnegan Work Phone: [facility] Start: 07-05-2023 End: 07-05-2023 Emergency department patient visit Dr. Julio Draper Work Phone: [facility]-Emergency Department Work Phone: Start: 07-05-2023 End: 07-05-2023 Dr. Julio Draper Work Phone: [facility]-Emergency Department Work Phone: Start: 06-30-2023 End: 06-30-2023 Subsequent hospital visit by physician Xr [facility] Work Phone: Radiology Comment on above: Multiple duodenal ul cers [K26.9] Start: 06-23-2023 Non-patient / Non-visit Dr. Christine Draper Work Phone: [facility] Start: 06-23-2023 Dr. Julio Finnegan Work Phone: [facility] Start: 06-23-2023 Non-patient / Non-visit Dr. Christine Draper Work Phone: [facility] Work Phone: Start: 06-23-2023 Dr. Julio Finnegan Work Phone: [facility] Work Phone: Start: 06-22-2023 Non-patient / Non-visit Dr. Christine Draper Work Phone: [facility] Start: 06-22-2023 Dr. Julio Finnegan Work Phone: [facility] Start: 06-21-2023 Non-patient / Non-visit Dr. Christine Draper Work Phone: [facility] Start: 06-21-2023 Dr. Julio Finnegan Work Phone: [facility] Start: 06-21-2023 Non-patient / Non-visit Dr. Christine Draper Work Phone: [facility] Work Phone: Start: 06-21-2023 Dr. Julio Finnegan Work Phone: [facility] Work Phone: Start: 06-20-2023 Non-patient / Non-visit Dr. Christine Draper Work Phone: [facility] Start: 06-20-2023 End: 06-23-2023 Evaluation and management of inpatient Dr. Julio Draper Work Phone: [facility]-Intensive Care Unit Work Phone: Start: 06-20-2023 End: 06-23-2023 Dr. Julio Draper Work Phone: [facility] 3 Work Phone: Start: 06-17-2023 Telephone encounter Julio russo MD Work Phone: Internal Medicine [place] Comment on above: Care Home Plan of Care Start: 06-16-2023 Telephone encounter Julio russo MD Work Phone: Internal Medicine [place] Comment on above: [facility] agree to foll ow Start: 06-16-2023 Non-patient / Non-visit Dr. Christine Draper Work Phone: [facility] [facility] Work Phone: Start: 06-16-2023 Dr. Julio Finnegan Work Phone: [facility] [facility] Work Phone: Start: 06-16-2023 ambulatory NONE PHYSICIAN Facility :R Start: 06-15-2023 Non-patient / Non-visit Dr. Christine Draper Work Phone: [facility] [facility] Work Phone: Start: 06-15-2023 Dr. Julio Finnegan Work Phone: [facility] [facility] Work Phone: Start: 06-14-2023 Non-patient / Non-visit Dr. Christine Draper Work Phone: [facility] [facility] Work Phone: Start: 06-14-2023 Dr. Julio Finnegan Work Phone: [facility] [facility] Work Phone: Start: 06-13-2023 Non-patient / Non-visit Dr. Christine Draper Work Phone: [facility] [facility] Work Phone: Start: 06-13-2023 Dr. Julio Finnegan Work Phone: [facility] [facility] Work Phone: Start: 06-13-2023 Non-patient / Non-visit Dr. Christine Draper Work Phone: [facility] Start: 06-13-2023 Dr. Julio Finnegan Work Phone: [facility] Start: 06-12-2023 Non-patient / Non-visit Dr. Christine Draper Work Phone: [facility] [facility] Work Phone: Start: 06-12-2023 Dr. Julio Finnegan Work Phone: [facility] [facility] Work Phone: Start: 06-12-2023 Non-patient / Non-visit Dr. Christine Draper Work Phone: [facility] Start: 06-12-2023 Dr. Julio Finnegan Work Phone: [facility] Start: 06-11-2023 Non-patient / Non-visit Dr. Christine Draper Work Phone: [facility] [facility] Work Phone: Start: 06-11-2023 Dr. Julio Finnegan Work Phone: [facility] [facility] Work Phone: Start: 06-11-2023 Non-patient / Non-visit Dr. Christine Draper Work Phone: [facility] Start: 06-11-2023 Dr. Julio Finnegan Work Phone: [facility] Start: 06-10-2023 Non-patient / Non-visit Dr. Christine Draper Work Phone: [facility] Start: 06-10-2023 Dr. Julio Finnegan Work Phone: [facility] Start: 06-10-2023 Non-patient / Non-visit Dr. Christine Draper Work Phone: [facility] [facility] Work Phone: Start: 06-10-2023 Dr. Julio Finnegan Work Phone: [facility] [facility] Work Phone: Start: 06-10-2023 Non-patient / Non-visit Dr. Christine Draper Work Phone: [facility] Start: 06-10-2023 Dr. Julio Finngean Work Phone: [facility] Start: 06-09-2023 Non-patient / Non-visit Dr. Christine Draper Work Phone: [facility] [facility] Work Phone: Start: 06-09-2023 Dr. Julio Finnegan Work Phone: [facility] [facility] Work Phone: Start: 06-09-2023 Non-patient / Non-visit Dr. Christine Draper Work Phone: [facility] Start: 06-09-2023 Dr. Julio Finnegan Work Phone: [facility] Start: 06-09-2023 Non-patient / Non-visit Dr. Christine Draper Work Phone: [facility] Start: 06-09-2023 Dr. Julio Finnegan Work Phone: [facility] Start: 06-09-2023 End: 06-09-2023 Non-patient / Non-visit [facility] Julio Dra[facility] Work Phone: Start: 06-09-2023 End: 06-09-2023 Dr. Julio Draper Work Phone: [facility] [facility] Work Phone: Start: 06-08-2023 Non-patient / Non-visit Dr. Christine Draper Work Phone: [facility] Start: 06-08-2023 Dr. Julio Finnegan Work Phone: [facility] Start: 06-08-2023 Non-patient / Non-visit Dr. Christine Draper Work Phone: [facility] Start: 06-08-2023 Dr. Julio Finnegan Work Phone: [facility] Start: 06-07-2023 Non-patient / Non-visit Dr. Christine Draper Work Phone: [facility] Work Phone: Start: 06-07-2023 Dr. Julio Finnegan Work Phone: [facility] [facility] Work Phone: Start: 06-06-2023 Non-patient / Non-visit Dr. Christine Draper Work Phone: [facility] [facility] Work Phone: Start: 06-06-2023 Dr. Julio Finnegan Work Phone: [facility] Work Phone: Start: 06-05-2023 Non-patient / Non-visit Dr. Christine Draper Work Phone: [facility] Work Phone: Start: 06-05-2023 Dr. Julio Finnegan Work Phone: [facility] Work Phone: Start: 06-05-2023 Non-patient / Non-visit Dr. Christine Draper Work Phone: [facility] Start: 06-05-2023 Dr. Julio Finnegan Work Phone: [facility] Start: 06-04-2023 Non-patient / Non-visit Dr. Christine Draper Work Phone: [facility] Work Phone: Start: 06-04-2023 Dr. Julio Finnegan Work Phone: [facility] [facility] Work Phone: Start: 06-04-2023 Non-patient / Non-visit Dr. Christine Draper Work Phone: [facility] Start: 06-04-2023 Dr. Julio Finnegan Work Phone: [facility] Start: 06-03-2023 End: 06-03-2023 Non-patient / Non-visit Dr. Julio Draper Work Phone: [facility] [facility] Work Phone: Start: 06-03-2023 End: 06-03-2023 Dr. Julio Draper Work Phone: [facility] [facility] Work Phone: Start: 06-03-2023 Non-patient / Non-visit Dr. Christine Draper Work Phone: [facility] Work Phone: Start: 06-03-2023 Dr. Julio Finnegan Work Phone: [facility] Work Phone: Start: 06-03-2023 Non-patient / Non-visit Dr. Christine Draper Work Phone: [facility] Start: 06-03-2023 Dr. Julio Finnegan Work Phone: [facility] Start: 06-02-2023 Non-patient / Non-visit Dr. Christine Draper Work Phone: [facility] Start: 06-02-2023 Dr. Julio Finnegan Work Phone: [facility] Start: 06-02-2023 End: 06-16-2023 Evaluation and management of inpatient [facility]Intensive Care [facility] Work Phone: Start: 06-02-2023 Non-patient / Non-visit Dr. Christine Draper Work Phone: [facility] In[facility] Work Phone: Start: 06-02-2023 End: 06-16-2023 Dr. Julio Draper Work Phone: [facility]Progressive Care Unit Work Phone: Start: 06-01-2023 End: 06-01-2023 [facility] Start: 06-01-2023 End: 06-01-2023 Dr. Julio [facility]: Start: 05-30-2023 Telephone encounter Luna Swartz PA-C Work Phone: Pulmonary Medicine Comment on above: Results (CT scan res ults/ Pain) Start: 05-25-2023 End: 05-25-2023 Subsequent hospital visit by physician [facility] (I-Stat) Work Phone: Cat Scan Comment on above: Lung nodules [R91.8] Start: 04-27-2023 Telephone encounter Luna Swartz PA-C Work Phone: Pulmonary Medicine Comment on above: Academic Services Professional - O ther Start: 03-03-2023 End: 03-03-2023 Patient encounter procedure Magali Nieves MD Work Phone: Pulmonary Medicine Comment on above: Centrilobular emphys jalyn (HCC) (Primary Dx); Chronic hypoxemic respiratory failure (HCC); Former smoker Start: 02-22-2023 Telephone encounter Magali Nieves MD Work Phone: Pulmonary Medicine Comment on above: Orders Start: 02-15-2023 Orders Only Magali Nieves MD Work Phone: Pulmonary Medicine Comment on above: Chronic obstructive pulmonary disease, unspecified COPD type (HCC) (Primary Dx) Start: 01-18-2023 Refill Julio doss MD Work Phone: Internal Medicine [place] Comment on above: Refill Request Start: 01-07-2023 End: 01-07-2023 Patient encounter procedure Julio Draper MD Work Phone: Internal Medicine [place] Comment on above: Chronic respiratory failure with hypoxia (HCC) (Primary Dx); COPD with asthma (HCC); Environmental allergies Start: 01-07-2023 End: 01-07-2023 Subsequent hospital visit by physician [facility] Work Phone: Radiology Comment on above: Pneumonia of left lo wer lobe due to infectious organism [J18.9] Start: 12-10-2022 End: 12-10-2022 Patient encounter procedure Magali Nieves MD Work Phone: Pulmonary Medicine Comment on above: Pneumonia of left lo wer lobe due to infectious organism (Primary Dx); COPD, severe (HCC); Chronic hypoxemic respiratory failure (HCC) Start: 12-06-2022 Patient Outreach Julio ornelas MD Work Phone: [facility] Comment on above: Transition Of Care Patient Update Start: 12-02-2022 Non-patient / Non-visit Dr. Christine Draper Work Phone: [facility] Inpatient Physicians Start: 12-01-2022 Non-patient / Non-visit Dr. Christine Draper Work Phone: [facility] In[facility] Phys[facility] Start: 11-30-2022 End: 12-03-2022 [facility] Start: 11-29-2022 ambulatory Genna Malone RN NURS E CHANNEL DIRECTOR Comment on above: Fever; Nausea; Chest Pain; Dizziness Start: 11-28-2022 End: 11-28-2022 Emergency department patient visit [facility]Emergency [facility] Start: 11-15-2022 End: 11-15-2022 Patient encounter procedure Tasha Hurley APRN.CNP Work Phone: Internal [facility] Comment on above: COPD with exacerbati on (HCC) (Primary Dx) Start: 11-11-2022 End: 11-11-2022 Subsequent hospital visit by physician [facility] Work Phone: Radiology Comment on above: COPD with exacerbati on (HCC) [J44.1] Start: 11-11-2022 End: 11-11-2022 Patient encounter procedure Jessie Xavi FRONT END MECHANICKIM Work Phone: Internal Medicine [place] Comment on above: COPD with exacerbati on (HCC) (Primary Dx); Abnormal breath sounds Start: 11-05-2022 End: 11-05-2022 Patient encounter procedure Julio Draper MD Work Phone: Internal Medicine [place] Comment on above: Routine medical exam (Primary Dx); Chronic respiratory failure with hypoxia (HCC); COPD with asthma (HCC); Hyperlipidemia, unspecified hyperlipidemia type; Screening for cervical cancer; Screening for colon cancer; Need for vaccination Start: 11-05-2022 End: 11-05-2022 Patient encounter status Julio Draper MD Work Phone: Internal Medicine [place] Start: 10-23-2022 Refill Julio doss MD Work Phone: Internal Medicine [place] Comment on above: Refill Request Start: 10-06-2022 ambulatory Julio doss MD Work Phone: Internal Medicine [facility] [place] Start: 09-10-2022 Refill Julio doss MD Work Phone: Internal Medicine [place] Comment on above: Refill Request Start: 07-31-2022 Refill Julio doss MD Work Phone: Family Medicine [place] Comment on above: Refill Request Start: 05-31-2022 Orders Only Magali Nieves MD Work Phone: Pulmonary Medicine Comment on above: Lung nodules (Primar y Dx); Centrilobular emphysema (HCC); Former cigarette smoker Chest CT Start: 05-25-2022 End: 05-25-2022 Patient encounter procedure Magali Nieves MD Work Phone: Pulmonary Medicine Comment on above: Stage 3 severe COPD by GOLD classification (HCC) (Primary Dx); Lung nodules; Chronic respiratory failure with hypoxia (HCC) Start: 05-25-2022 End: 05-25-2022 Subsequent hospital visit by physician [facility] (I-Stat) Work Phone: Cat Scan Comment on above: COVID-19 [U07.1] Start: 05-03-2022 End: 05-03-2022 Patient encounter procedure Julio Draper MD Work Phone: Internal Medicine [place] Comment on above: COPD with asthma (HC C) (Primary Dx); Need for influenza vaccination; Hypoxemia; Hyperlipidemia, unspecified hyperlipidemia type; Deformity of toenail; Environmental allergies; Lung nodule seen on imaging study; Elevated blood pressure reading Start: 04-22-2022 Telephone encounter Luna (Historical) Fan Work Phone: Pulmonary Medicine Comment on above: Academic Services Professional - O ther Start: 04-21-2022 Telephone encounter Magali Nieves MD Work Phone: Orthopaedics Comment on above: Orders Start: 04-20-2022 Refill Julio doss MD Work Phone: Internal Medicine [place] Comment on above: Refill Request Start: 01-27-2022 Telephone encounter Luna Garnica (Historic) Fan Work Phone: Pulmonary Medicine Comment on above: Orders Start: 01-21-2022 End: 01-21-2022 ambulatory Respiratory Therapist [facility] Work Phone: Pulmonary Medicine Comment on above: Spirometry Start: 01-21-2022 End: 01-21-2022 Patient encounter procedure Respiratory Therapist [facility] Work Phone: [facility] Comment on above: Stage 3 severe COPD by GOLD classification ([facility]) (Primary Dx); Former smoker; COVID-19; Lung nodules Start: 01-08-2022 Telephone encounter Luna Swartz PA-C Work Phone: Pulmonary Medicine Comment on above: Patient Update Start: 11-12-2021 End: 11-12-2021 Patient encounter procedure Reema Jiménez APRN.SENIOR MARKETING SPECIALIST Work Phone: Internal Medicine [place] Comment on above: Acute right-sided lo w back pain without sciatica (Primary Dx); Vertigo; Post-nasal drip; Environmental allergies; COPD with asthma (HCC) Start: 11-02-2021 End: 11-02-2021 Subsequent hospital visit by physician Xr [facility] [place] Work Phone: Radiology Comment on above: Cough [R05.9] Start: 11-02-2021 End: 11-02-2021 Patient encounter procedure Rachel Mayo FRONT END MECHANIC.CISCO CERTIF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 Work Phone: [facility] Comment on above: Cough (Primary Dx); SOB (shortness of breath) Start: 10-14-2021 End: 10-14-2021 Patient encounter procedure Ev Hinkle FRONT END MECHANIC.CISCO CERTIF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 Work Phone: [facility] Comment on above: Bilateral impacted c erumen (Primary Dx) Start: 04-21-2021 End: 04-21-2021 Subsequent hospital visit by physician Xr [facility] [place] Work Phone: Radiology Comment on above: Cough [R05.9] Start: 10-06-2020 End: 10-06-2020 Patient encounter procedure [facility] Start: 09-08-2020 End: 09-08-2020 Patient encounter procedure [facility] Procedures Date Procedure Procedure Detail Performing Clinician Start: 10-31-2024 Plain chest X-ray Dr. Julio Draper MD Work Phone: Start: 10-31-2024 Blood count smear mcrscp w/mnl difrntl wbc count Dr. Julio Draper MD Work Phone: Start: 10-31-[address] Phil Draper MD Work Phone: Start: 10-31-2024 Mean corpuscular hemoglobin concentration determination Dr. Julio Draper MD Work Phone: Start: 10-31-2024 Nucleated red blood cell count procedure Dr. Julio Draper MD Work Phone: Start: 10-31-2024 Platelet mean volume determination Dr. Enzo Draper MD Work Phone: Start: 09-17-2024 Plain X-ray of shoulder Dr. Julio Draper MD Work Phone: Start: 08-09-[address] Julio Draper MD Work Phone: Start: 08-09-2024 Blood count complete auto&auto difrntl wbc Dr. Julio Draper MD Work Phone: Start: 08-09-2024 BUN/Creatinine ratio Dr. Julio Draper MD Work Phone: Start: 08-09-[address] Phil Draper MD Work Phone: Start: 08-09-2024 Flow cytometry cell surf marker techl only 1st Dr. Julio Draper MD Work Phone: Start: 08-09-2024 Mean corpuscular hemoglobin concentration determination Dr. Julio Draper MD Work Phone: Start: 08-09-2024 Measurement of renal function Dr. Julio Draper MD Work Phone: Start: 08-09-2024 Myelocyte percent differential count Dr. Julio Draper MD Work Phone: Start: 08-09-2024 Nucleated red blood cell count procedure Dr. Julio Draper MD Work Phone: Start: 08-09-2024 Platelet mean volume determination Dr. Enzo Draper MD Work Phone: Start: 08-07-[address] Julio Draper MD Work Phone: Start: 08-07-[address] Julio Draper MD Work Phone: Start: 08-06-2024 Dr. Julio Draper MD Work Phone: Start: 08-06-2024 CT angiography of chest with contrast Dr. Julio Draper MD Work Phone: Start: 08-06-2024 Carbon dioxide measurement, partial pressure Dr. Julio Draper MD Work Phone: Start: 08-06-2024 Gases blood o2 saturation only direct rena Dr. Julio Draper MD Work Phone: Start: 08-06-2024 Measurement of partial pressure of oxygen in blood Dr. Julio Draper MD Work Phone: Start: 08-06-[address] Julio Draper MD Work Phone: Start: 08-06-2024 D-dimer assay, quantitative Dr. Julio Draper MD Work Phone: Start: 08-06-2024 CT of chest without contrast Dr. Julio Draper MD Work Phone: Start: 08-06-2024 Assay of phosphorus inorganic Dr. Julio Draper MD Work Phone: Start: 08-02-2024 X-ray of chest, PA and lateral views Dr. Julio Draper MD Work Phone: Start: 08-02-2024 Albumin/Globulin ratio Dr. Julio Draper MD Work Phone: Start: 08-02-[address] Julio Draper MD Work Phone: Start: 08-02-2024 Blood count smear mcrscp w/mnl difrntl wbc count Dr. Julio Draper MD Work Phone: Start: 08-02-2024 BUN/Creatinine ratio Dr. Julio Draper MD Work Phone: Start: 08-02-[address] Phil Draper MD Work Phone: Start: 08-02-2024 Mean corpuscular hemoglobin concentration determination Dr. Julio Draper MD Work Phone: Start: 08-02-2024 Measurement of renal function Dr. Julio Draper MD Work Phone: Start: 08-02-2024 Nucleated red blood cell count procedure Dr. Julio Draper MD Work Phone: Start: 08-02-2024 Platelet mean volume determination Dr. Enzo Draper MD Work Phone: Start: 08-02-2024 Dr. Julio Draper MD Work Phone: Start: 07-27-[address] Julio Draper MD Work Phone: Start: 07-27-2024 Blood count smear mcrscp w/mnl difrntl wbc count Dr. Julio Draper MD Work Phone: Start: 07-27-2024 BUN/Creatinine ratio Dr. Julio Draper MD Work Phone: Start: 07-27-[address] Phil Draper MD Work Phone: Start: 07-27-2024 Mean corpuscular hemoglobin concentration determination Dr. Julio Draper MD Work Phone: Start: 07-27-2024 Measurement of renal function Dr. Julio Draper MD Work Phone: Start: 07-27-2024 Nucleated red blood cell count procedure Dr. Julio Draper MD Work Phone: Start: 07-27-2024 Platelet mean volume determination Dr. Enzo Draper MD Work Phone: Start: 07-25-2024 Measurement of occult blood in stool specimen using immunoassay Dr. Julio Draper MD Work Phone: Start: 07-25-[address] Julio Draper MD Work Phone: Start: 07-25-2024 Total iron binding capacity measurement Dr. Julio Draper MD Work Phone: Start: 07-24-[address] Julio Draper MD Work Phone: Start: 07-24-[address] Julio Draper MD Work Phone: Start: 07-23-[address] acid assay [address] Julio Draper MD Work Phone: Start: 07-23-[address] Julio Draper MD Work Phone: Start: 07-23-[address] Julio Draper MD Work Phone: Start: 07-23-2024 Legionella pneumophila antigen assay Dr. Julio Draper MD Work Phone: Start: 07-23-2024 End: 07-23-2024 Streptococcus pneumoniae antigen assay Dr. Julio Draper MD Work Phone: Start: 07-23-2024 Dr. Julio Draper MD Work Phone: Start: 07-23-2024 Urine microscopy: red cells Dr. Julio Draper MD Work Phone: Start: 07-23-2024 Urnls dip stick/tablet reagent auto microscopy Dr. Julio Draper MD Work Phone: Start: 07-23-2024 CT angiography of chest with contrast Dr. Julio Draper MD Work Phone: Start: 07-23-2024 D-dimer assay, quantitative Dr. Julio Draper MD Work Phone: Start: 07-23-2024 Plain chest X-ray Dr. Julio Draper MD Work Phone: Start: 07-11-[address] Julio Draper MD Work Phone: Start: 07-11-2024 BUN/Creatinine ratio Dr. Julio Draper MD Work Phone: Start: 07-11-[address] Phil Draper MD Work Phone: Start: 07-11-2024 Mean corpuscular hemoglobin concentration determination Dr. Julio Draper MD Work Phone: Start: 07-11-2024 Measurement of renal function Dr. Julio Draper MD Work Phone: Start: 07-11-2024 Platelet mean volume determination Dr. Enzo Draper MD Work Phone: Start: 07-09-2024 Legionella pneumophila antigen assay Dr. Julio Draper MD Work Phone: Start: 07-09-2024 End: 07-09-2024 Streptococcus pneumoniae antigen assay Dr. Julio Draper MD Work Phone: Start: 07-09-2024 Albumin/Globulin ratio Dr. Julio Draper MD Work Phone: Start: 07-09-2024 Blood count smear mcrscp w/mnl difrntl wbc count Dr. Julio Draper MD Work Phone: Start: 07-09-2024 Nucleated red blood cell count procedure Dr. Julio Draper MD Work Phone: Start: 07-08-[address] Julio Draper MD Work Phone: Start: 07-08-[address] Julio Draper MD Work Phone: Start: 07-08-2024 Dr. Julio Draper MD Work Phone: Start: 07-08-2024 CT of chest without contrast Dr. Julio Draper MD Work Phone: Start: 07-03-2024 X-ray of chest, PA and lateral views Dr. Julio Draper MD Work Phone: Start: 07-03-2024 Dr. Julio Draper MD Work Phone: Start: 06-05-2024 Plain x-ray of humerus Dr. Juilo Draper MD Work Phone: Start: 02-20-2024 Endoscopy upper small intestine Ryan hernandez MD Work Phone: Start: 02-20-2024 Gases blood ph direct rena xcpt pulse oximitry Calvin Padgett MD Work Phone: Start: 12-22-[address] (I-Stat) Work Phone: Start: 11-11-2023 Adult depression screening assessment Julio Draper MD Work Phone: Start: 10-31-2023 Radiologic exam chest 2 views Julio russo MD Work Phone: Start: 08-25-2023 Lipid 1995 panel - Serum or Plasma Phil Draper MD Work Phone: Start: 07-20-2023 Lipid 1995 panel - Serum or Plasma Puma Plasencia MD Work Phone: Start: 07-07-[address] Julio Draper Work Phone: Start: 07-07-[address] Julio Draper Work Phone: Start: 07-07-2023 Investigation of transfusion reaction Dr. Julio Draper Work Phone: Start: 07-07-2023 Dr. Julio Draper Work Phone: Start: 07-07-2023 Plain chest X-ray Dr. Julio Draper Work Phone: Start: 07-07-2023 Ultrasonic guidance for thoracentesis Dr. Julio Draper Work Phone: Start: 07-07-2023 Diagnostic radiography of abdomen Dr. Christine Draper Work Phone: Start: 07-05-2023 Computed tomography of abdomen and pelvis with intravenous contrast Dr. Julio Draper Work Phone: Start: 06-30-2023 Radiologic exam chest 2 views Julio russo MD Work Phone: Start: 06-21-[address] Julio Draper Work Phone: Start: 06-20-2023 Bacteria identified in Blood by Culture Dr. Julio Draper Work Phone: Start: 06-20-[address] Julio Draper Work Phone: Start: 06-20-2023 Dr. Julio Draper Work Phone: Start: 06-20-2023 Plain chest X-ray Dr. Julio Draper Work Phone: Start: 06-14-[address] Julio Draper Work Phone: Start: 06-13-[address] Julio Draper Work Phone: Start: 06-13-[address] Julio Draper Work Phone: Start: 06-13-2023 Investigation of transfusion reaction Dr. Julio Draper Work Phone: Start: 06-13-2023 Plain chest X-ray Dr. Julio Draper Work Phone: Start: 06-13-2023 Ultrasonic guidance for thoracentesis Dr. Julio Draper Work Phone: Start: 06-12-2023 Plain chest X-ray Dr. Julio Draper Work Phone: Start: 06-10-2023 Plain chest X-ray Dr. Julio Draper Work Phone: Start: 06-09-[address] Julio Draper Work Phone: Start: 06-08-2023 Measurement of occult blood in stool specimen using immunoassay Dr. Julio Draper Work Phone: Start: 06-07-2023 Ultrasonic guidance for thoracentesis Dr. Julio Draper Work Phone: Start: 06-07-2023 End: 06-07-2023 Plain chest X-ray Dr. Julio Draper Work Phone: Start: 06-03-2023 Coronavirus COVID-[address] Julio Draper Work Phone: Start: 06-03-2023 Dr. Julio Draper Work Phone: Start: 06-02-2023 Bacteria identified in Blood by Culture Dr. Julio Draper Work Phone: Start: 06-02-[address] Julio Draper Work Phone: Start: 06-02-2023 Dr. Julio Draper Work Phone: Start: 06-02-2023 Plain chest X-ray Start: 06-01-2023 SARS-CoV-2 & FLU Antigen (Rapid) Start: 06-01-[address] Julio Draper Work Phone: Start: 06-01-2023 Dr. Julio Draper Work Phone: Start: 06-01-2023 CT angiography of chest with contrast Start: 01-07-2023 Radiologic exam chest 2 views Magali Nieves MD Work Phone: Start: 01-03-2023 Lipid 1996 panel - Serum or Plasma Zaida Swartz PA-C Work Phone: Start: 11-30-2022 Plain chest X-ray Start: 11-28-2022 Plain chest X-ray Start: 11-11-2022 Radiologic exam chest 2 views Jessie Hurley APRN.CNP Work Phone: Start: 06-05-2022 [id number] total Magali Nieves MD Work Phone: Start: 05-25-2022 Ct thorax w/o contrast material Luna Swartz PA-C Work Phone: Start: 05-03-2022 [employer] COVID-19 BIVALENT BOOSTER VACCINE, AGE 12+ YR Julio Draper MD Work Phone: Start: 05-03-2022 INFLUENZA SEASONAL QUADRIVALENT HIGH DOSE AGE 65+ Julio Draper MD Work Phone: Start: 01-21-2022 Noninvasive ear/pulse oximetry multiple deter Luna Swartz PA-C Work Phone: Start: 11-02-2021 Radiologic exam chest 2 views Rachel Dyson FRONT END MECHANIC.[employer]IS[employer] C[employer]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 Work Phone: Start: 08-26-2021 Mammography Ev Hinkle FRONT END MECHANIC.[employer]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 Work Phone: Start: 05-06-2021 Adult depression screening assessment Ev Manan FRONT END MECHANIC.[employer]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 Work Phone: Start: 04-21-2021 Radiologic exam chest 2 views Pamela Cristofer lal FRONT END MECHANIC.[employer] C[employer]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 Work Phone: Start: 08-18-2012 Colonoscopy Ev Manan FRONT END MECHANIC.[employer] C[employer]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 Work Phone: Legionella pneumophi la antigen assay Dr. Julio Draper Work Phone: Streptococcus pneumoniae Antigen (M Dr. Julio Draper Work Phone: Viral antigen assay Dr. Tenisha Draper Work Phone: Plan of Treatment Date Care Activity Detail Author Start: 12-21-2028 Screening for malignant neoplasm of colon [facility] Start: 08-25-2028 Lipid panel Lipid Screening [facility] Start: 07-20-2028 Lipid panel Lipid Screening [facility] Start: 01-04-2028 Lipid 1996 panel - Serum or Plasma Lipid Screening [facility] Start: 01-04-2028 Lipid panel Lipid Screening [facility] Start: 01-04-2028 LIPID SCREEN LIPID SCREEN [facility] Start: 08-30-2026 Screening for osteoporosis Bone Density Screening [facility] Start: 08-18-2026 Diabetes Screening Diabetes Screening [facility] Start: 08-13-2026 Diabetes Screening Diabetes Screening [facility] Start: 08-08-2026 Diabetes Screening Diabetes Screening [facility] Start: 08-05-2026 LIPID SCREEN LIPID SCREEN [facility] Start: 01-03-2026 DIABETES SCREEN DIABETES SCREEN [facility] Start: 01-03-2026 Diabetes Screening Diabetes Screening [facility] Start: 11-19-2025 End: 11-19-2025 Patient encounter procedure 11/19/2025 11:00 AM EDT Appointment Cat Scan [address] [place] [address] Dx: Lung nodules [R91.8]; Ground glass opacity present on imaging of lung [R91.8]; Former smoker [Z87.891] Cat Scan Comment on above: Dx: Lung nodules [R91.8]; Ground glass o pacity present on imaging of lung [R91.8]; Former smoker [Z87.891] Start: 11-16-2025 End: 12-16-2025 CT Chest WO contrast CT CHEST WO IVCON Radiology Routine Lung nodules Ground glass opacity present on imaging of lung Former smoker Expected: 11/16/2025, Expires: 12/16/2025 [place] Work Phone: Comment on above: Expected: 11/16/2025, Expires: Start: 11-14-2025 BP Controlled (<130/80) BP Controlled (<130/80) [facility] Start: 11-13-2025 Annual PCP Team Chronic Disease Visit Annual PCP Team Chronic Disease Visit [facility] Start: 11-13-2025 BP Controlled (<130/80) BP Controlled (<130/80) [facility] Start: 11-06-2025 Screening for malignant neoplasm of lung Lung Cancer Screening [facility] Start: 10-31-2025 Creatinine measurement Serum Creatinine [facility] Start: 10-08-2025 Annual PCP Team Chronic Disease Visit Annual PCP Team Chronic Disease Visit [facility] Start: 10-08-2025 BP Controlled (<130/80) BP Controlled (<130/80) [facility] Start: 09-20-2025 Complete blood count Hemoglobin/Hematocrit [facility] Start: 09-19-2025 Annual PCP Team Chronic Disease Visit Annual PCP Team Chronic Disease Visit [facility] Start: 09-19-2025 BP Controlled (<130/80) BP Controlled (<130/80) [facility] Start: 09-04-2025 BP Controlled (<130/80) BP Controlled (<130/80) [place] Start: 08-14-2025 Annual PCP Team Chronic Disease Visit Annual PCP Team Chronic Disease Visit [facility] Start: 07-31-2025 Annual PCP Team Chronic Disease Visit Annual PCP Team Chronic Disease Visit [facility] Start: 07-18-2025 Annual PCP Team Chronic Disease Visit Annual PCP Team Chronic Disease Visit [facility] Start: 07-18-2025 BP Controlled (<130/80) BP Controlled (<130/80) [facility] Start: 07-05-2025 Annual PCP Team Chronic Disease Visit Annual PCP Team Chronic Disease Visit [facility] Start: 06-07-2025 BP Controlled (<130/80) BP Controlled (<130/80) [facility] Start: 05-15-2025 Annual PCP Team Chronic Disease Visit Annual PCP Team Chronic Disease Visit [facility] Start: 05-10-2025 Screening for malignant neoplasm of lung Lung Cancer Screening [facility] Start: 04-12-2025 Annual PCP Team Chronic Disease Visit Annual PCP Team Chronic Disease Visit [facility] Start: 04-12-2025 BP Controlled (<130/80) BP Controlled (<130/80) [facility] Start: 04-04-2025 End: 04-04-2025 Patient encounter procedure 04/04/2025 11:45 AM EDT Office Visit Pulmonary Medicine [address] [place] [address] Magali Nieves MD [address] [address] 4 month f/u with Dr. Nieves Pulmonary Medicine Comment on above: 4 month f/u with Dr. Nieves Start: 03-04-2025 Influenza vaccination Influenza Vaccine (Season Ended) [facility] Start: 02-14-2025 End: 02-14-2025 Patient encounter procedure 02/14/2025 9:20 AM EDT Office Visit [facility] [place] [address] [place] [address] Julio Draper MD [address] [place] [address] Welcome to Medicare w/3 month follow-up [facility] [place] Comment on above: Welcome to Medicare w/3 month follow-up Start: 01-28-2025 End: 04-29-2025 Lipid 1996 panel - Serum or Plasma LIPID PANEL, FASTING Lab Routine Coronary artery disease involving [place] coronary artery of [place] heart without angina pectoris Expected: 01/28/2025, Expires: 04/29/2025 [place] Work Phone: Comment on above: Expected: 01/28/2025, Expires: Start: 01-24-2025 Evaluation of diagnostic study results [facility] Start: 01-03-2025 Patient discharge [facility] Start: 12-31-2024 Influenza vaccination Influenza Vaccine (#1) [place] [facility] Comment on above: Postponed from 03/04/2024 (Declined at t his time) Start: 11-14-2024 End: 11-14-2024 Patient encounter procedure Pulmonary Medicine Comment on above: 6 month follow up Start: 11-13-2024 End: 11-13-2024 Patient encounter procedure 11/13/2024 10:00 AM EDT Office Visit [facility] [place] [address] [place] [address] Julio Draper MD [address] [place] [address] 6mo follow up [facility] [place] Comment on above: 6mo follow up Start: 11-10-2024 Annual PCP Team Chronic Disease Visit Annual PCP Team Chronic Disease Visit [facility] Start: 11-10-2024 BP Controlled (<130/80) BP Controlled (<130/80) [facility] Start: 11-10-2024 Depression Screening Depression Screening [facility] Start: 11-06-2024 End: 11-06-2024 Patient encounter procedure 11/06/2024 10:00 AM EDT Appointment Cat Scan [address] [place] [address] Ground glass opacity present on imaging of lung [R91.8] Cat Scan Comment on above: Ground glass opacity present on imaging of lung [R91.8] Start: 11-05-2024 End: 07-07-2025 CT Chest WO contrast CT CHEST WO IVCON Radiology Routine Ground glass opacity present on imaging of lung Expected: 11/05/2024, Expires: 07/07/2025 [place] Work Phone: Comment on above: Expected: 11/05/2024, Expires: Start: 11-02-2024 Screening for malignant neoplasm of lung Lung Cancer Screening [facility] Start: 10-31-2024 [facility] Start: 10-31-2024 [facility] Start: 10-31-2024 [facility] Start: 10-30-2024 Annual PCP Team Chronic Disease Visit Annual PCP Team Chronic Disease Visit [facility] Start: 10-30-2024 BP Controlled (<130/80) BP Controlled (<130/80) [facility] Start: 09-25-2024 End: 09-25-2024 Patient encounter procedure 09/25/2024 1:00 PM EDT Office Visit [facility] [place] [address] [place], [place] [id number] Anjum Knutson V, DO [address] [place] [address] Acute pain of right shoulder [M25.511] [facility] [place] Comment on above: Acute pain of right shoulder [M25.511] Start: 09-19-2024 End: 12-19-2024 CBC panel - Blood by Automated count COMPLETE BLOOD COUNT Lab Routine Acute pain of right shoulder Expected: 09/19/2024, Expires: 12/19/2024 [place] Work Phone: Comment on above: Expected: 09/19/2024, Expires: Start: 09-19-2024 End: 12-19-2024 Erythrocyte sedimentation rate SEDIMENTATION RATE, WESTERGREN Lab Routine Acute pain of right shoulder Expected: 09/19/2024, Expires: 12/19/2024 [facility] Comment on above: Expected: 09/19/2024, Expires: Start: 09-19-2024 End: 12-19-2024 Fibrin D-dimer FEU [Mass/volume] in Platelet poor plasma D-DIMER Lab Routine Acute pain of right shoulder Expected: 09/19/2024, Expires: 12/19/2024 [facility] Comment on above: Expected: 09/19/2024, Expires: Start: 09-17-2024 [facility] Start: 09-06-2024 Patient discharge [facility] Start: 09-04-2024 End: 09-04-2024 Patient encounter procedure 09/04/2024 1:00 PM EST Office Visit Pulmonary Medicine [address] [place] [address] Jean-Pierre Vitale APRN.[employer] C[employer]IF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 [address] [place] [address] FOLLOW UP PER PCP Pulmonary Medicine Comment on above: FOLLOW UP PER PCP Start: 08-30-2024 End: 08-30-2024 Patient encounter procedure 08/30/2024 10:05 AM EST Appointment Radiology [address] [place] [id number] Age-related osteoporosis without current pathological fracture [M81.0] Radiology Comment on above: Age-related osteoporosis without current pathological fracture [M81.0] Start: 08-25-2024 Annual PCP Team Chronic Disease Visit Annual PCP Team Chronic Disease Visit [facility] Start: 08-25-2024 BP Controlled (<130/80) BP Controlled (<130/80) [facility] Start: 08-25-2024 Complete blood count Hemoglobin/Hematocrit [facility] Start: 08-25-2024 Hepatitis B surface antibody level LDL Cholesterol [facility] Start: 08-21-2024 End: 08-30-2025 XR Chest PA and Lateral XR CHEST 2V FRONTAL/LAT Radiology Routine Pneumonia of right lower lobe due to infectious organism Expected: 08/21/2024, Expires: 08/30/2025 [place] Work Phone: Comment on above: Expected: 08/21/2024, Expires: Start: 08-19-2024 Complete blood count Hemoglobin/Hematocrit [facility] Start: 08-18-2024 Creatinine measurement Serum Creatinine [facility] Start: 08-14-2024 End: 08-14-2024 Patient encounter procedure 08/14/2024 11:20 AM EST Office Visit Internal [facility] [place] [address] [place] [address] Julio Draper MD [address] [place] [address] Discharge follow up [facility] [place] Comment on above: Discharge follow up Start: 08-13-2024 Creatinine measurement Serum Creatinine [facility] Start: 08-12-2024 Complete blood count Hemoglobin/Hematocrit [facility] Start: 08-10-2024 Referral to service [facility] Start: 08-10-2024 Patient discharge [facility] Start: 08-10-2024 Referral to service [facility] Start: 08-10-2024 Care of hemodialysis equipment [facility] Start: 08-10-2024 Hemodialysis care [facility] Start: 08-10-2024 [facility] Start: 08-08-2024 Complete blood count Hemoglobin/Hematocrit [facility] Start: 08-08-2024 Creatinine measurement Serum Creatinine [facility] Start: 08-08-2024 End: 08-08-2024 [facility] Start: 08-08-2024 Hemodialysis care [facility] Start: 08-06-2024 Respiratory secretion precautions [facility] Start: 08-06-2024 Following clinical pathway protocol [facility] Start: 08-06-2024 Care of hemodialysis equipment [facility] Start: 08-06-2024 Ambulation without limitation [facility] Start: 08-06-2024 Assessment of risk of venous thromboembolism [facility] Start: 08-06-2024 Continuous pulse oximetry [facility] Start: 08-06-2024 Insertion of catheter into peripheral vein [facility] Start: 08-06-2024 Measuring intake and output [facility] Start: 08-06-2024 Oxygen therapy [facility] Start: 08-06-2024 Providing care according to standard [facility] Start: 08-06-2024 Referral to rig builder helper [facility] Start: 08-06-2024 Referral to occupational therapist [facility] Start: 08-06-2024 Referral to service [facility] Start: 08-06-2024 Hemodialysis care [facility] Start: 08-06-2024 End: 08-06-2024 [facility] Start: 08-06-2024 Dual pressure spontaneous ventilation support [facility] Start: 08-06-2024 Admission procedure [facility] Start: 08-06-2024 Patient referral to dietitian [facility] Start: 08-03-2024 [facility] Start: 08-02-2024 [facility] Start: 07-27-2024 Referral to service [facility] Start: 07-27-2024 Patient discharge [facility] Start: 07-27-2024 Care of hemodialysis equipment [facility] Start: 07-27-2024 Hemodialysis care [facility] Start: 07-27-2024 [facility] Start: 07-25-2024 Care of hemodialysis equipment [facility] Start: 07-25-2024 Hemodialysis care [facility] Start: 07-25-2024 [facility] Start: 07-24-2024 Consultation [facility] Start: 07-24-2024 Oxygen therapy [facility] Start: 07-24-2024 Inhalation therapy procedure [facility] Start: 07-23-2024 Catheterization of vein [facility] Start: 07-23-2024 Notification of physician [facility] Start: 07-23-2024 [facility] Start: 07-23-2024 Dialysis care [facility] Start: 07-23-2024 Following clinical pathway protocol [facility] Start: 07-23-2024 Assessment of risk of venous thromboembolism [facility] Start: 07-23-2024 Insertion of catheter into peripheral vein [facility] Start: 07-23-2024 Measuring intake and output [facility] Start: 07-23-2024 Providing care according to standard [facility] Start: 07-23-2024 Provision of activity privileges [facility] Start: 07-23-2024 Referral to rig builder helper [facility] Start: 07-23-2024 Referral to occupational therapist [facility] Start: 07-23-2024 Referral to service [facility] Start: 07-23-2024 Tobacco use cessation education [facility] Start: 07-23-2024 Care of hemodialysis equipment [facility] Start: 07-23-2024 Hemodialysis care [facility] Start: 07-23-2024 End: 07-23-2024 [facility] Start: 07-23-2024 Admission procedure [facility] Start: 07-23-2024 Patient referral to dietitian [facility] Start: 07-20-2024 Hepatitis B surface antibody level LDL Cholesterol [facility] Start: 07-18-2024 End: 07-18-2024 Patient encounter procedure 07/18/2024 10:00 AM EST Office Visit Internal Medicine [place] [address] [place] [address] Tasha Laureano, FRONT END MECHANIC.[employer] C[employer]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 [address] [place] [address] Discharged from [facility] 07/11/24 - COPD exacerbation and pneumonia [facility] [place] Comment on above: Discharged from [facility] 07/11/24 - COPD exacer bation and pneumonia Start: 07-11-2024 Patient discharge [facility] Start: 07-11-2024 Referral to service [facility] Start: 07-11-2024 Care of hemodialysis equipment [facility] Start: 07-11-2024 Hemodialysis care [facility] Start: 07-11-2024 [facility] Start: 07-09-2024 End: 07-10-2024 [facility] Start: 07-09-2024 Referral to service [facility] Start: 07-09-2024 Care of hemodialysis equipment [facility] Start: 07-09-2024 Hemodialysis care [facility] Start: 07-08-2024 Following clinical pathway protocol [facility] Start: 07-08-2024 Assessment of risk of venous thromboembolism [facility] Start: 07-08-2024 Catheterization of vein [facility] Start: 07-08-2024 Insertion of catheter into peripheral vein [facility] Start: 07-08-2024 Measuring intake and output [facility] Start: 07-08-2024 Oxygen therapy [facility] Start: 07-08-2024 Physiotherapy of chest [facility] Start: 07-08-2024 Providing care according to standard [facility] Start: 07-08-2024 Provision of activity privileges [facility] Start: 07-08-2024 Referral to rig builder helper [facility] Start: 07-08-2024 Referral to occupational therapist [facility] Start: 07-08-2024 Referral to service [facility] Start: 07-08-2024 Respiratory secretion precautions [facility] Start: 07-08-2024 [facility] Start: 07-08-2024 Admission procedure [facility] Start: 07-08-2024 Inhalation therapy procedure [facility] Start: 07-05-2024 End: 07-05-2024 Patient encounter procedure 07/05/2024 10:05 AM EST Appointment Radiology [address] [place] [id number] Age-related osteoporosis without current pathological fracture [M81.0] Radiology Comment on above: Age-related osteoporosis without current pathological fracture [M81.0] Start: 07-04-2024 Advance Directive Discussion Advance Directive Discussion [facility] Start: 07-03-2024 [facility] Start: 06-30-2024 Annual PCP Team Chronic Disease Visit Annual PCP Team Chronic Disease Visit [facility] Start: 06-07-2024 End: 06-07-2024 Patient encounter procedure 06/07/2024 1:45 PM EST Office Visit Pulmonary Medicine [address] [place] [address] Magali Nieves MD [address] [place] [address] 6 mo ov Pulmonary Medicine Comment on above: 6 mo ov Start: 06-05-2024 Patient discharge [facility] Start: 06-05-2024 Anesthesia vascular shunt/shunt revision [facility] Start: 06-05-2024 Revj opn arven fstl w/o thrmbc dial grf [facility] Start: 05-15-2024 End: 05-15-2024 Patient encounter procedure 05/15/2024 10:00 AM EST Office Visit Internal [facility] [place] [address] [place] [address] Julio Draper MD [address] [place] [address] 6 month follow up [facility] [place] Comment on above: 6 month follow up Start: 05-10-2024 End: 12-07-2024 CT Chest WO contrast [place] Work Phone: Comment on above: Expected: 05/10/2024, Expires: Start: 05-10-2024 End: 05-10-2024 Patient encounter procedure 05/10/2024 1:00 PM EST Appointment Cat Scan [address] [place], [place] [address] lung nodules [R91.8] Cat Scan Comment on above: lung nodules [R91.8] Start: 04-12-2024 DTaP/Tdap/Td Vaccines (2 - Td or Tdap) DTaP/Tdap/Td Vaccines (2 - Td or Tdap) 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] Start: 02-09-2024 End: 02-09-2024 ambulatory 02/09/2024 10:00 AM EDT [facility] G[facility]enterology [address] [address] Ryan Tafoya MD [address] [place] [address] gi bleed Gastroenterology Comment on above: gi bleed Start: 01-08-2024 ANNUAL PCP TEAM CHRONIC DISEASE VISIT ANNUAL PCP TEAM CHRONIC DISEASE VISIT [facility] Start: 11-16-2023 ANNUAL PCP TEAM CHRONIC DISEASE VISIT ANNUAL PCP TEAM CHRONIC DISEASE VISIT [facility] Start: 11-12-2023 ANNUAL PCP TEAM CHRONIC DISEASE VISIT ANNUAL PCP TEAM CHRONIC DISEASE VISIT [facility] Start: 11-11-2023 End: 11-11-2023 Patient encounter procedure 11/11/2023 3:20 PM EDT Office Visit [facility] [place] [address] [place] [address] Julio Draper MD [address] [place] [address] Annual exam-will need med refills [facility] [place] Comment on above: Annual exam-will need med refills Start: 11-08-2023 End: 11-08-2023 Patient encounter procedure 11/08/2023 2:30 PM EDT Office Visit Pulmonary Medicine [address] [place] [address] Luna Swartz PA-C [address] [place] [address] follow up Pulmonary Medicine Comment on above: follow up Start: 11-06-2023 ANNUAL PCP TEAM CHRONIC DISEASE VISIT ANNUAL PCP TEAM CHRONIC DISEASE VISIT [facility] Start: 11-06-2023 Pneumococcal Vaccine: 65+ Years (2 of 2 - PCV) Pneumococcal Vaccine: 65+ Years (2 of 2 - PCV) [facility] Start: 11-03-2023 End: 11-03-2023 Patient encounter procedure 11/03/2023 8:20 AM EDT Appointment Cat Scan [address] [place] [address] Empyema of pleura (HCC) [J86.9] Cat Scan Comment on above: Empyema of pleura (HCC) [J86.9] Start: 10-24-2023 End: 09-14-2024 CT Chest WO contrast CT CHEST [facility] Radiology Routine Parapneumonic effusion Persistent pneumonia Expected: 10/24/2023, Expires: 09/14/2024 [place] Work Phone: Comment on above: Expected: 10/24/2023, Expires: Start: 09-01-2023 Administration of blood product [facility] Start: 09-01-2023 [facility] Start: 08-26-2023 Screening for osteoporosis Bone Density Screening [facility] Start: 07-09-2023 Patient discharge [facility] Start: 07-09-2023 Care planning and problem solving actions [facility] Start: 07-08-2023 Care planning and problem solving actions [facility] Start: 07-08-2023 Application of intermittent pneumatic compression device [facility] Start: 07-07-2023 Blood chemistry [facility] Start: 07-07-2023 Consultation [facility] Start: 07-07-2023 Assessment of risk of venous thromboembolism [facility] Start: 07-07-2023 Inhalation therapy procedure [facility] Start: 07-07-2023 Insertion of catheter into peripheral vein [facility] Start: 07-07-2023 Oxygen therapy [facility] Start: 07-07-2023 Providing care according to standard [facility] Start: 07-07-2023 Provision of activity privileges [facility] Start: 07-07-2023 Referral to occupational therapist [facility] Start: 07-07-2023 Referral to service [facility] Start: 07-07-2023 Following clinical pathway protocol [facility] Start: 07-07-2023 Verification routine [facility] Start: 07-07-2023 Admission procedure [facility] Start: 07-07-2023 Hospital admission, emergency, from emergency room, medical nature [facility] Start: 07-07-2023 End: 07-07-2023 Blood culture [facility] Start: 07-07-2023 Bacterial culture [facility] Start: 07-07-2023 End: 07-07-2023 [facility] Start: 07-07-2023 Vital signs measurements [facility] Start: 07-07-2023 Ultrasonic guidance for thoracentesis [facility] Start: 07-07-2023 Patient referral to dietitian [facility] Start: 07-05-2023 End: 07-05-2023 [facility] Start: 07-04-2023 Advance Directive Discussion Advance Directive Discussion [facility] Start: 07-04-2023 Behavioral Health Screening Behavioral Health Screening [facility] Start: 07-04-2023 Depression Assessment Depression Assessment [facility] Start: 06-23-2023 Patient discharge [facility] Start: 06-22-2023 Referral to occupational therapist [facility] Start: 06-22-2023 End: 06-22-2023 Referral to service [facility] Start: 06-22-2023 [facility] Start: 06-20-2023 Bacteria identified in Blood by Culture Blood Culture [facility] Start: 06-20-2023 Administration of blood product [facility] Start: 06-20-2023 Application of intermittent pneumatic compression device [facility] Start: 06-20-2023 Assessment of risk of venous thromboembolism [facility] Start: 06-20-2023 Documentation procedure [facility] Start: 06-20-2023 Insertion of catheter into peripheral vein [facility] Start: 06-20-2023 Measuring intake and output [facility] Start: 06-20-2023 Oxygen therapy [facility] Start: 06-20-2023 Providing care according to standard [facility] Start: 06-20-2023 Referral to gastroenterology service [facility] Start: 06-20-2023 Vital signs measurements [facility] Start: 06-20-2023 [facility] Start: 06-20-2023 Following clinical pathway protocol [facility] Start: 06-20-2023 Verification routine [facility] Start: 06-20-2023 Hospital admission, emergency, from emergency room, medical nature [facility] Start: 06-20-2023 Admission procedure [facility] Start: 06-20-2023 Leukocyte reduced red blood cells [facility] Start: 06-20-2023 End: 06-20-2023 [facility] Start: 06-20-2023 End: 06-20-2023 Administration of blood product [facility] Start: 06-20-2023 End: 06-20-2023 Blood culture [facility] Start: 06-16-2023 Referral to service [facility] Start: 06-16-2023 Patient discharge [facility] Start: 06-15-2023 End: 06-15-2023 Administration of blood product [facility] Start: 06-13-2023 Anaerobic Culture Anaerobic Culture [facility] Start: 06-13-2023 Vital signs measurements [facility] Start: 06-13-2023 [facility] Start: 06-12-2023 Speech therapy assessment [facility] Start: 06-11-2023 Application of intermittent pneumatic compression device [facility] Start: 06-08-2023 End: 06-08-2023 Referral to gastroenterology service [facility] Start: 06-08-2023 [facility] Start: 06-07-2023 Following clinical pathway protocol [facility] Start: 06-07-2023 Vital signs measurements [facility] Start: 06-07-2023 [facility] Start: 06-07-2023 Referral to service [facility] Start: 06-07-2023 Blood chemistry [facility] Start: 06-07-2023 [facility] Start: 06-06-2023 Blood chemistry [facility] Start: 06-05-2023 Care planning and problem solving actions [facility] Start: 06-05-2023 Blood chemistry [facility] Start: 06-05-2023 Inhalation therapy procedure [facility] Start: 06-04-2023 Blood chemistry [facility] Start: 06-03-2023 Blood chemistry [facility] Start: 06-03-2023 Continuous positive airway pressure ventilation treatment [facility] Start: 06-02-2023 Bacteria identified in Blood by Culture Blood Culture [facility] Start: 06-02-2023 Bacteria identified in Urine by Culture Urine Culture [facility] Start: 06-02-2023 Respiratory Panel (PCR) Respiratory Panel (PCR) [facility] Start: 06-02-2023 End: 06-02-2023 Following clinical pathway protocol [facility] Start: 06-02-2023 Methicillin resistant Staphylococcus aureus screening test [facility] Start: 06-02-2023 Ambulation without limitation [facility] Start: 06-02-2023 Assessment of risk of venous thromboembolism [facility] Start: 06-02-2023 Bacteria identified in Sputum by Culture [facility] Start: 06-02-2023 Consultation [facility] Start: 06-02-2023 Continuous pulse oximetry [facility] Start: 06-02-2023 Insertion of catheter into peripheral vein [facility] Start: 06-02-2023 Measuring intake and output [facility] Start: 06-02-2023 Oxygen therapy [facility] Start: 06-02-2023 Providing care according to standard [facility] Start: 06-02-2023 Referral to occupational therapist [facility] Start: 06-02-2023 Referral to service [facility] Start: 06-02-2023 Respiratory therapy [facility] Start: 06-02-2023 Vital signs measurements [facility] Start: 06-02-2023 [facility] Start: 06-02-2023 Verification routine [facility] Start: 06-02-2023 Admission procedure [facility] Start: 06-02-2023 Blood culture [facility] Start: 06-02-2023 [facility] Start: 06-02-2023 Blood culture [facility] Start: 06-02-2023 Continuous pulse oximetry [facility] Start: 06-02-2023 Dual pressure spontaneous ventilation support [facility] Start: 05-31-2023 End: 06-30-2023 Ct thorax w/o contrast material CT CHEST [facility] Radiology Routine Lung nodules Centrilobular emphysema (HCC) Former cigarette smoker Expected: 05/31/2023, Expires: 06/30/2023 [place] Work Phone: Comment on above: Expected: 05/31/2023, Expires: Start: 05-03-2023 ANNUAL PCP TEAM CHRONIC DISEASE VISIT ANNUAL PCP TEAM CHRONIC DISEASE VISIT [facility] Start: 04-05-2023 DIABETES SCREEN DIABETES SCREEN [facility] Start: 03-04-2023 Covid-19 Vaccine ( season) Covid-19 Vaccine () [facility] Start: 03-04-2023 Influenza vaccination [facility] Start: 12-03-2022 Patient discharge [facility] Start: 12-01-2022 Physiotherapy of chest [facility] Start: 11-30-2022 Referral to service [facility] Start: 11-30-2022 Following clinical pathway protocol [facility] Start: 11-30-2022 Ambulation without limitation [facility] Start: 11-30-2022 Assessment of risk of venous thromboembolism [facility] Start: 11-30-2022 Catheterization of vein [facility] Start: 11-30-2022 Elevation of head of bed [facility] Start: 11-30-2022 Incentive spirometry [facility] Start: 11-30-2022 Inhalation therapy procedure [facility] Start: 11-30-2022 Insertion of catheter into peripheral vein [facility] Start: 11-30-2022 Measuring intake and output [facility] Start: 11-30-2022 Oxygen therapy [facility] Start: 11-30-2022 Patient education [facility] Start: 11-30-2022 Providing care according to standard [facility] Start: 11-30-2022 Referral to service [facility] Start: 11-30-2022 Bacteria identified in Sputum by Culture [facility] Start: 11-30-2022 Legionella pneumophila Ag [Presence] in Urine [facility] Start: 11-30-2022 Streptococcus pneumoniae antigen assay [facility] Start: 11-30-2022 End: 11-30-2022 [facility] Start: 11-30-2022 Verification routine [facility] Start: 11-30-2022 Admission procedure [facility] Start: 11-30-2022 End: 11-30-2022 Blood culture [facility] Start: 11-30-2022 [facility] Start: 11-28-2022 [facility] Start: 11-06-2022 End: 01-06-2023 Comprehensive metabolic 2000 panel - Serum or Plasma COMP METABOLIC PANEL Lab Routine Routine medical exam Expected: 11/06/2022, Expires: 01/06/2023 [place] Work Phone: Comment on above: Expected: 11/06/2022, Expires: 3 Start: 11-06-2022 End: 01-06-2023 Lipid 1996 panel - Serum or Plasma LIPID PANEL BASIC Lab Routine Routine medical exam Expected: 11/06/2022, Expires: 01/06/2023 [place] Work Phone: Comment on above: Expected: 11/06/2022, Expires: 3 Start: 08-31-2022 COVID-19 VACCINE (5 - Pfizer series) COVID-19 VACCINE (5 - Pfizer series) [facility] Start: 08-26-2022 Mammography [facility] Start: 08-26-2022 Screening for malignant neoplasm of breast Mammogram Screening [facility] Start: 08-18-2022 Colonoscopy COLONOSCOPY [facility] Start: 08-18-2022 COLORECTAL CANCER SCREENING COLORECTAL CANCER SCREENING [facility] Start: 08-18-2022 Screening for malignant neoplasm of colon [facility] Start: 08-12-2022 ANNUAL PCP TEAM CHRONIC DISEASE VISIT ANNUAL PCP TEAM CHRONIC DISEASE VISIT [facility] Start: 08-12-2022 PNEUMOCOCCAL: 65+ (2 - PCV) PNEUMOCOCCAL: 65+ (2 - PCV) [facility] Start: 07-04-2022 ADVANCE DIRECTIVE DISCUSSION ADVANCE DIRECTIVE DISCUSSION [facility] Start: 07-04-2022 DEPRESSION ASSESSMENT DEPRESSION ASSESSMENT [facility] Start: 05-25-2022 End: 07-25-2022 Alpha 1 antitrypsin [Mass/volume] in Serum or Plasma [id number] BL Lab Routine Expected: 05/25/2022, Expires: 07/25/2022 [place] Work Phone: Comment on above: Expected: 05/25/2022, Expires: 3 Start: 05-06-2022 Adult depression screening assessment DEPRESSION SCREENING [facility] Start: 05-04-2022 End: 02-20-2023 Ct thorax w/o contrast material CT CHEST WO [facility] Radiology Routine COVID-19 Lung nodules Expected: 05/04/2022, Expires: 02/20/2023 [place] Work Phone: Comment on above: Expected: 05/04/2022, Expires: 3 Start: 03-04-2022 Influenza vaccination INFLUENZA (#1) [facility] Start: 01-04-2022 COVID-19 VACCINE (4 - Booster for Pfizer series) COVID-19 VACCINE (4 - Booster for Pfizer series) [facility] Start: 10-30-2021 COVID-19 VACCINE (4 - Booster for Pfizer series) COVID-19 VACCINE (4 - Booster for Pfizer series) [facility] Start: 07-04-2021 ADVANCE DIRECTIVE DISCUSSION ADVANCE DIRECTIVE DISCUSSION [facility] Start: 07-04-2021 DEPRESSION ASSESSMENT DEPRESSION ASSESSMENT [facility] Start: 08-18-2017 Screening for malignant neoplasm of colon [facility] Start: 2016 RSV Immunization aged 60 or older (1 - 1-dose 60+ series) RSV Immunization aged 60 or older (1 - 1-dose 60+ series) [facility] Start: 2016 RSV Vaccine (1 - 1-dose 60+ series) RSV Vaccine (1 - 1-dose 60+ series) [facility] Start: 2006 SHINGRIX VACCINE (1 of 2) SHINGRIX VACCINE (1 of 2) [facility] Start: 2006 Zoster Vaccines (1 of 2) Zoster Vaccines (1 of 2) [facility] Start: 2001 COLOGUARD (FIT-DNA) COLOGUARD (FIT-DNA) [facility] Start: [address] COLONOGRAPHY [facility] Start: 2001 FECAL OCCULT BLOOD FECAL OCCULT BLOOD [facility] Start: 2001 Screening for malignant neoplasm of colon [facility] Start: 2001 SIGMOIDOSCOPY SIGMOIDOSCOPY [facility] Start: 1996 Screening for malignant neoplasm of breast Mammogram [facility] Start: 1986 Zoledronic acid therapy ALPHA-1 ANTITRYPSIN DEFICIENCY SCREENING [facility] Start: 1976 Hepatitis B Vaccine (1 of 3 - Risk Dialysis 4-dose series) Hepatitis B Vaccine (1 of 3 - Risk Dialysis 4-dose series) [facility] Start: 1974 BP Controlled (<130/80) BP Controlled (<130/80) [facility] Start: 1968 Depression Screening Depression Screening [facility] Start: 1956 Screening for malignant neoplasm of colon [facility] Start: 1956 Screening for osteoporosis Bone Density Scan [facility] Ambulatory ECG [facility] Anion gap measurement [facility] Anion gap measurement [facility] Anion gap measurement [facility] Anion gap measurement [facility] Anion gap measurement [facility] Anion gap measurement [facility] Bacteria identified in Blood by Culture Blood Culture [facility] Bacteria identified in Blood by Culture Blood Culture [facility] Bacteria identified in Body fluid by Culture [facility] Bacteria identified in Unspecified specimen by Anaerobe culture [facility] Bacteria identified in Unspecified specimen by Anaerobe culture [facility] Bilirubin measuremen t, urine [facility] BUN/Creatinine ratio [facility] BUN/Creatinine ratio [facility] BUN/Creatinine ratio [facility] BUN/Creatinine ratio [facility] BUN/Creatinine ratio [facility] BUN/Creatinine ratio [facility] Calcium [Mass/volume ] in Serum or Plasma [facility] Calcium [Mass/volume ] in Serum or Plasma [facility] Calcium [Mass/volume ] in Serum or Plasma [facility] Calcium [Mass/volume ] in Serum or Plasma [facility] Calcium [Mass/volume ] in Serum or Plasma [facility] Calcium [Mass/volume ] in Serum or Plasma [facility] Carbon dioxide, tota l [Moles/volume] in Serum or Plasma [facility] Carbon dioxide, tota l [Moles/volume] in Serum or Plasma [facility] Carbon dioxide, tota l [Moles/volume] in Serum or Plasma [facility] Carbon dioxide, tota l [Moles/volume] in Serum or Plasma [facility] Carbon dioxide, tota l [Moles/volume] in Serum or Plasma [facility] Carbon dioxide, tota l [Moles/volume] in Serum or Plasma [facility] Chloride [Moles/volu me] in Serum or Plasma [facility] Chloride [Moles/volu me] in Serum or Plasma [facility] Chloride [Moles/volu me] in Serum or Plasma [facility] Chloride [Moles/volu me] in Serum or Plasma [facility] Chloride [Moles/volu me] in Serum or Plasma [facility] Chloride [Moles/volu me] in Serum or Plasma [facility]ARD [facility] Ordered: 11/05/2022 [place] Work Phone: Comment on above: Ordered: 11/05/2022 Creatinine [Moles/volume] in Serum or Plasma [facility] Creatinine [Moles/volume] in Serum or Plasma [facility] Creatinine [Moles/volume] in Serum or Plasma [facility] Creatinine [Moles/volume] in Serum or Plasma [facility] Creatinine [Moles/volume] in Serum or Plasma [facility] Creatinine [Moles/volume] in Serum or Plasma [facility] CT Chest WO contrast CT CHEST WO IVCON Radiology Routine Parapneumonic effusion Persistent pneumonia 11/03/2023 8:39 AM EDT [place] Work Phone: CT Chest WO contrast CT CHEST WO IVCON Radiology Routine Ground glass opacity present on imaging of lung 11/06/2024 10:16 AM EDT [place] Work Phone: Ct thorax w/o contra st material CT CHEST WO IVCON Radiology Routine Lung nodules Centrilobular emphysema (HCC) Former cigarette smoker 05/25/2023 3:26 PM EST [place] Work Phone: End: 09-13-2025 DBT Breast - bilateral screening AISLINN SCREENING W [facility]ARY Radiology Routine Encounter for screening mammogram for breast cancer 1 Occurrences starting 08/14/2024 until 09/13/2025 [place] Work Phone: Comment on above: 1 Occurrences starting 08/14/2024 until 09/13/2025 End: 06-14-2025 DXA Skeletal system.axial Views for bone density DXA-AXIAL SKELETON Radiology Routine Age-related osteoporosis without current pathological fracture 1 Occurrences starting 05/15/2024 until 06/14/2025 [place] Work Phone: Comment on above: 1 Occurrences starting 05/15/2024 until 06/14/2025 DXA Skeletal system.axial Views for bone density DXA-AXIAL SKELETON Radiology Routine Age-related osteoporosis without current pathological fracture 08/30/2024 10:24 AM EST [place] Work Phone: End: 02-08-2025 ENTEROSCOPY ENTEROSCOPY Endoscopy Routine AVM (arteriovenous malformation) of small bowel, acquired 1 Occurrences starting 02/09/2024 until 02/08/2025 [place] Work Phone: Comment on above: 1 Occurrences starting 02/09/2024 until 02/08/2025 Glucose [Mass/volume ] in Serum or Plasma [facility] Glucose [Mass/volume ] in Serum or Plasma [facility] Glucose [Mass/volume ] in Serum or Plasma [facility] Glucose [Mass/volume ] in Serum or Plasma [facility] Glucose [Mass/volume ] in Serum or Plasma [facility] Glucose [Mass/volume ] in Serum or Plasma [facility] Hematocrit [Volume Fraction] of Blood [facility] Hematocrit [Volume Fraction] of Blood [facility] Hematocrit [Volume Fraction] of Blood [facility] Hematocrit [Volume Fraction] of Blood [facility] Hematocrit [Volume Fraction] of Blood [facility] Hemoglobin [Mass/vol ume] in Blood [facility] Hemoglobin [Mass/vol ume] in Blood [facility] Hemoglobin [Mass/vol ume] in Blood [facility] Hemoglobin [Mass/vol ume] in Blood [facility] Hemoglobin [Mass/vol ume] in Blood [facility] Hemoglobin [Presence ] in Urine [facility] Leukocytes [#/volume ] in Blood [facility] Leukocytes [#/volume ] in Blood [facility] Leukocytes [#/volume ] in Blood [facility] Leukocytes [#/volume ] in Blood [facility] Leukocytes [#/volume ] in Blood [facility] End: 11-05-2023 AISLINN SCREENING AISLINN SCREENING Radiology Routine Encounter for screening mammogram for breast cancer 1 Occurrences starting 10/06/2022 until 11/05/2023 [place] Work Phone: Comment on above: 1 Occurrences starting 10/06/2022 until 11/05/2023 Mean corpuscular hemoglobin concentration determination [facility] Mean corpuscular hemoglobin concentration determination [facility] Mean corpuscular hemoglobin concentration determination [facility] Mean corpuscular hemoglobin concentration determination [facility] Mean corpuscular hemoglobin concentration determination [facility] Mean corpuscular hemoglobin determination [facility] Mean corpuscular hemoglobin determination [facility] Mean corpuscular hemoglobin determination [facility] Mean corpuscular hemoglobin determination [facility] Mean corpuscular hemoglobin determination [facility] Measurement of keton es in urine using dipstick [facility] Measurement of renal function [facility] Measurement of renal function [facility] Measurement of renal function [facility] Measurement of renal function [facility] Measurement of renal function [facility] Measurement of renal function [facility] End: 10-06-2024 MG Breast Screening AISLINN SCREENING Radiology Routine Encounter for screening mammogram for breast cancer 1 Occurrences starting 09/07/2023 until 10/06/2024 [facility] [employer] Work Phone: Comment on above: 1 Occurrences starting 09/07/2023 until 10/06/2024 Microscopic urinalysis [facility] Neutrophil count [facility] Neutrophil count [facility] Neutrophil count [facility] Neutrophil count [facility] Neutrophil count [facility] Neutrophil percent differential count [facility] Neutrophil percent differential count [facility] Neutrophil percent differential count [facility] Neutrophil percent differential count [facility] Neutrophil percent differential count [facility] OXIMETRY - NOCTURNAL OXIMETRY - NOCTURNAL Procedures Routine Stage 3 severe COPD by GOLD classification (HCC) COVID-19 Ordered: 01/21/2022 [place] Work Phone: Comment on above: Ordered: 01/21/2022 End: 02-07-2023 OXIMETRY WITH AMBULATION OXIMETRY WITH AMBULATION PFT Routine COVID-19 Stage 3 severe COPD by GOLD classification ([facility]) 1 Occurrences starting 01/08/2022 until 02/07/2023 [place] Work Phone: Comment on above: 1 Occurrences starting 01/08/2022 until 02/07/2023 Patient Education [facility] Work Phone: Patient referral [facility] Work Phone: End: 06-28-[address] attenuation skull base mid-thigh NM PET/CT SKULL-THIGH INITIAL Radiology Routine Lung nodules 1 Occurrences starting 05/30/2023 until 06/28/2024 [place] Work Phone: Comment on above: 1 Occurrences starting 05/30/2023 until 06/28/2024 pH of Urine [facility] Platelets [#/volume] in Blood [facility] Platelets [#/volume] in Blood [facility] Platelets [#/volume] in Blood [facility] Platelets [#/volume] in Blood [facility] Platelets [#/volume] in Blood [facility] Potassium [Moles/vol ume] in Serum or Plasma [facility] Potassium [Moles/vol ume] in Serum or Plasma [facility] Potassium [Moles/vol ume] in Serum or Plasma [facility] Potassium [Moles/vol ume] in Serum or Plasma [facility] Potassium [Moles/vol ume] in Serum or Plasma [facility] Potassium [Moles/vol ume] in Serum or Plasma [facility] End: 12-11-2023 Radiologic exam chest 2 views XR CHEST 2V FRONTAL/LAT Radiology Routine COPD with exacerbation (HCC) Abnormal breath sounds 1 Occurrences starting 11/11/2022 until 12/11/2023 [place] Work Phone: Comment on above: 1 Occurrences starting 11/11/2022 until 12/11/2023 Radiologic exam ches t 2 views XR CHEST 2V FRONTAL/LAT Radiology Routine COPD with exacerbation (HCC) Abnormal breath sounds 11/11/2022 3:15 PM EDT [place] Work Phone: End: 01-09-2024 Radiologic exam chest 2 views XR CHEST 2V FRONTAL/LAT Radiology Routine Pneumonia of left lower lobe due to infectious organism 1 Occurrences starting 12/10/2022 until 01/09/2024 [place] Work Phone: Comment on above: 1 Occurrences starting 12/10/2022 until 01/09/2024 Red blood cell count [facility] Red blood cell count [facility] Red blood cell count [facility] Red blood cell count [facility] Red blood cell count [facility] Red cell distributio n width determination [facility] Red cell distributio n width determination [facility] Red cell distributio n width determination [facility] Red cell distributio n width determination [facility] Red cell distributio n width determination [facility] Removal impacted cer umen irrigation/lvg unilat AMBULATORY EAR LAVAGE/IRRIGATION Procedures Routine Impacted cerumen of both ears Ordered: 08/25/2023 [place] Work Phone: Comment on above: Ordered: 08/25/2023 Respiratory pathogen s DNA and RNA panel - Respiratory specimen by FOZIA with probe detection [facility] Sodium [Moles/volume ] in Serum or Plasma [facility] Sodium [Moles/volume ] in Serum or Plasma [facility] Sodium [Moles/volume ] in Serum or Plasma [facility] Sodium [Moles/volume ] in Serum or Plasma [facility] Sodium [Moles/volume ] in Serum or Plasma [facility] Sodium [Moles/volume ] in Serum or Plasma [facility] Specific gravity of Urine [facility] Urea nitrogen [Mass/volume] in Serum or Plasma [facility] Urea nitrogen [Mass/volume] in Serum or Plasma [facility] Urea nitrogen [Mass/volume] in Serum or Plasma [facility] Urea nitrogen [Mass/volume] in Serum or Plasma [facility] Urea nitrogen [Mass/volume] in Serum or Plasma [facility] Urea nitrogen [Mass/volume] in Serum or Plasma [facility] Urinalysis, blood, qualitative [facility] Urine dipstick for glucose [facility] Urine dipstick for leukocyte esterase [facility] Urine dipstick for nitrite [facility] Urine dipstick for protein [facility] Urine examination [facility] Urine microscopy: epithelial cells [facility] Urine Microscopy: wh ite cells [facility] Urobilinogen [Presen ce] in Urine [facility] End: 11-29-2024 XR Chest PA and Lateral XR CHEST 2V FRONTAL/LAT Radiology Routine Chronic obstructive pulmonary disease with acute exacerbation (HCC) 1 Occurrences starting 10/31/2023 until 11/29/2024 [place] Work Phone: Comment on above: 1 Occurrences starting 10/31/2023 until 11/29/2024 XR Chest PA and Lateral XR CHEST 2V FRONTAL/LAT Radiology Routine Chronic obstructive pulmonary disease with acute exacerbation (HCC) 10/31/2023 6:24 PM EDT [facility] XR Chest PA and Lateral XR CHEST 2V FRONTAL/LAT Radiology Routine Pneumonia of right lower lobe due to infectious organism 10/08/2024 7:27 PM EDT [place] Work Phone: [facility] Immunizations Immunization Date Immunization Notes Care Provider Viktoria arredondo 11-05-2022 pneumococcal Conjuga te, unspecified formulation Julio Draper MD Work Phone: [place] Work Phone: 11-05-2022 pneumococcal (PCV20) vaccine, 20 valent (PREVNAR 20) Julio Draper MD Work Phone: [facility] 05-03-2022 COVID-19 booster vaccine, age 12+ yr, bivalent (PFIZER-BIONTECH) Julio Draper MD Work Phone: [facility] Work Phone: 05-03-2022 influenza, high-dose , quadrivalent vaccine (FLUZONE HIGH DOSE QUADRIVALENT) Julio Draper MD Work Phone: [facility] Work Phone: 05-03-2022 influenza virus vacc ine, unspecified formulation Luna Swartz PA-C Work Phone: [facility] 09-04-2021 COVID-19 original vaccine, age 12+ yr, monovalent (PFIZER-BIONTECH - MAURO TOP) Julio Draper MD Work Phone: [facility] Work Phone: 08-12-2021 Influenza, high dose seasonal Dr. Julio Draper MD Work Phone: [facility] 08-12-2021 influenza, high dose seasonal, preservative-free Dr. 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 Work Phone: [facility] Work Phone: 09-10-2020 Covid (Pfizer) [facility] 09-08-2020 COVID-19 vaccine, ag e 12+ yr (PFIZER-BIONTECH - PURPLE TOP) Ev Hinkle APRN.[employer]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 Work Phone: [facility] Work Phone: 04-01-2020 influenza, injectabl e, quadrivalent, contains preservative Ev Hinkle APRN.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 Work Phone: [facility] 07-06-2018 influenza, injectabl e, quadrivalent, contains preservative Ev Hinkle APRN.[employer]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 Work Phone: [facility] 04-17-2016 Influenza virus vaccine [facility] 04-17-2016 influenza, seasonal, injectable, preservative free Julio Draper MD Work Phone: [facility] Work Phone: 04-03-2016 influenza virus vacc ine, unspecified formulation Ev Hinkle APRN.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 Work Phone: [facility] Work Phone: 09-05-2015 pneumococcal polysaccharide vaccine, 23 valent Ev Hinkle APRN.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 Work Phone: [facility] 05-05-2015 Influenza virus vaccine [facility] 05-05-2015 influenza, seasonal, injectable, preservative free Julio Draper MD Work Phone: [facility] Work Phone: 04-21-2015 influenza, seasonal, injectable Ev Hinkle APRN.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 Work Phone: [facility] Work Phone: 05-04-2014 Influenza virus vaccine [facility] 05-04-2014 influenza, seasonal, injectable, preservative free Julio Draper MD Work Phone: [facility] Work Phone: 04-12-2014 tetanus toxoid, redu katie diphtheria toxoid, and acellular pertussis vaccine, adsorbed Ev Hinkle APRN.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 Work Phone: [facility] Work Phone: 05-04-2013 influenza virus vacc ine, unspecified formulation Ev Hinkle APRN.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 Work Phone: [facility] Payers Date Payer Category Payer Private Health Insurance [employer]MO MED ICARE SUPPLEMENT [id number] 2024 Medicare [id number] 2023 Self-pay [id number] 2021 Medicare [id number] 2021 Medicare [id number] 2020 Unknown [facility] [place] PPO CONNECT GENERIC [id number] 2020-Present [phone] [address] [place] [address] PPO [id number] 2020 Unknown [id number]. [id number] 2020 Unknown [id number] 2016 Unknown [id number] 1956 Unknown [id number] 2.16.840.1.673559.3.579.2. 627 Unknown [id number] 2.16.840.1.304247.3.579.2. 462 Unknown [id number] 2.16.840.1.135840.3.579.2. 462 Unknown [id number] 2.16.840.1.248645.3.579.2. 462 Unknown [id number] 2.16.840.1.781894.3.579.2. 462 Unknown [id number] 2.16.840.1.012581.3.579.2. 462 Unknown [id number] 2.16.840.1.436289.3.579.2. 462 Unknown [id number] 2.16.840.1.703507.3.579.2. 462 Unknown [id number] 2.16.840.1.291121.3.579.2. 462 Unknown [id number] 2.16.840.1.088892.3.579.2. 462 Unknown [id number] 2.16.840.1.534310.3.579.2. 462 Unknown [id number] 2.16.840.1.740432.3.579.2. 462 Unknown [id number] 2.16.840.1.891845.3.579.2. 462 Unknown [id number] 2.16.840.1.701357.3.579.2. 462 Unknown [id number] 2.16.840.1.058882.3.579.2. 462 Unknown [id number] 2.16.840.1.921754.3.579.2. 462 Unknown [id number] 2.16.840.1.919376.3.579.2. 462 Unknown [id number] 2.16.840.1.414602.3.579.2. 462 Unknown [id number] 2.16.840.1.800584.3.579.2. 462 Unknown [id number] 2.16.840.1.016572.3.579.2. 462 Unknown [id number] 2.16.840.1.956021.3.579.2. 462 Unknown [id number] 2.16.840.1.174250.3.579.2. 462 Unknown [id number] 2.16.840.1.829485.3.579.2. 462 Unknown [id number] 2.16.840.1.611428.3.579.2. 462 Unknown [id number] 2.16.840.1.748980.3.579.2. 462 Unknown [id number] 2.16.840.1.342830.3.579.2. 462 Unknown [id number] 2.16.840.1.770197.3.579.2. 462 Unknown [id number] 2.840.1.946778.3.579.2. 462 Unknown [id number] 2.16.840.1.549345.3.579.2. 462 Unknown [id number] 2.16.840.1.801543.3.579.2. 462 Unknown [id number] 2.16.840.1.074239.3.579.2. 462 Unknown [id number] 2.16.840.1.782456.3.579.2. 462 Unknown [id number] 2.16.840.1.418112.3.579.2. 462 Unknown [id number] 2.16.840.1.900606.3.579.2. 462 Unknown [id number] 2.16.840.1.098250.3.579.2. 462 Unknown [id number] 2.16.840.1.077224.3.579.2. 462 Unknown [id number] 2.16.840.1.232944.3.579.2. 462 Unknown [id number] 2.16.840.1.209176.3.579.2. 462 Unknown [id number] 2.16.840.1.903621.3.579.2. 462 Unknown [id number] 2.16.840.1.221910.3.579.2. 462 Unknown [id number] 2.16.840.1.843107.3.579.2. 462 Unknown [id number] 2.16.840.1.795261.3.579.2. 462 Unknown [id number] 2.16.840.1.610504.3.579.2. 462 Unknown [id number] 2.16.840.1.246808.3.579.2. 462 Unknown [id number] 2.16.840.1.510092.3.579.2. 462 Social History Date Type Detail Facility Start: 09-08-2015 End: 01-03-2025 Tobacco smoking status NHIS Ex-smoker [facility] Work Phone: Start: 1974 End: 05-23-2016 History of tobacco use Current smoker [facility] Work Phone: Start: 1974 End: 05-23-2016 History of tobacco use Cigarette Smoker [facility] Work Phone: Start: 09-08-2015 End: 11-04-2022 Cigarettes smoked current (pack per day) - Reported 0.5 [facility] Start: 09-08-2015 End: 04-12-2024 Tobacco use and exposure Smokeless tobacco non-user [facility] Work Phone: Start: 10-14-2021 End: 11-14-2024 Alcohol intake Current non-drinker of alcohol (finding) [facility] Start: 11-12-2019 End: 11-04-2022 History SDOH Alcohol Frequency 1 [facility] Start: 11-12-2019 End: 11-04-2022 History SDOH Social Connections Phone 5 [facility] Start: 11-12-2019 End: 11-04-2022 History SDOH Social Connections Living 3 [facility] Start: 11-12-2019 End: 11-04-2022 History SDOH Physical Activity DPW 0 [facility] Start: 11-12-2019 End: 11-04-2022 History SDOH Stress 2 [facility] Start: 11-12-2019 End: 11-04-2022 History SDOH Financial 4 [facility] Start: 11-12-2019 Education 21 [facility] Start: 02-04-2020 End: 05-25-2022 Tobacco Comment Resumed short period. Quit for good 05/2016. [facility] Start: 1955 Sex Assigned At Female [facility] Start: 10-04-2021 End: 05-03-2022 Exposure to SARS-CoV-2 (event) Not sure [facility] Start: 11-28-2022 End: 06-02-2023 Tobacco smoking status NHIS Unknown if ever smoked [facility] Start: 04-22-2020 None [facility] Start: 04-27-2021 Homeless [facility] Start: 04-27-2021 Cigarettes [facility] Start: 11-04-2022 End: 08-18-2023 Social connection and isolation panel [facility] Start: 03-22-2021 End: 04-21-2021 Do you belong to any clubs or organizations such as uatsdin groups, unions, fraternal or athletic groups, or school groups? Yes [facility] Are you now , , , , never or living with a partner? [facility] How often to you hav e a drink containing alcohol? Never [facility] How many standard dr inks containing alcohol do you have on a typical day? Patient does not drink [facility] How hard is it for y ou to pay for the very basics like food, housing, medical care, and heating Not very hard [facility] Do you feel stress - tense, restless, nervous, or anxious, or unable to sleep at night because your mind is troubled all the time - these days [OSQ] Only a little [facility] (I/We) worried whedeya er (my/our) food would run out before (I/we) got money to buy more. Never true [facility] In the past 12 month s, was there a time when you were not able to pay the mortgage or rent on time? No [facility] Start: 03-31-2020 Gender identity Identifies as female gender (finding) [facility] Start: 09-29-2020 Sexual orientation Heterosexual (finding) [facility] How many standard dr inks containing alcohol do you have on a typical day? 1 or 2 [facility] Start: 1955 Sex Assigned At Not on file [employer] How hard is it for y ou to pay for the very basics like food, housing, medical care, and heating Somewhat hard [facility] Start: 09-17-2024 Sex Female (finding) [facility] Medical Equipment Procedure Code Equipment Code Equipment Origin al Text Equipment Identifier Dates EGD, with monitored anesthesia care [id number] FDA Start: 06-09-2023 Creation, AV fistula [id number] FDA Start: 03-13-2024 Creation, AV fistula [id number] FDA Start: 03-13-2024 Catheter Glidepa th 14.5fr Straight Polyurethane 24cm 19cm Hemodialysis Kit - [id number] Start: 08-05-2023 Catheter Glidepa th 14.5fr Straight Polyurethane 24cm 19cm Hemodialysis Kit - [id number] Start: 08-18-2023 Goals Date Patient Goal Desired Activity /State Functional Status Date Assessment Result Facility 08-10-2024 Functional status Ambulates;Beds frances Commode [facility] Work Phone: 07-27-2024 Functional status Chair [facility] Work Phone: 07-27-2024 Functional status With Assist of 1 [facility] Work Phone: 07-11-2024 Functional status Ambulates;Chair [facility] Work Phone: 08-19-2023 Are you deaf, or do you have serious difficulty hearing No 08/19/2023 12:11 PM Ria Brown RN No [facility] 08-19-2023 Are you blind, or do you have serious difficulty seeing, even when wearing glasses 08/19/2023 12:11 PM Ria Brown RN No [facility] 08-19-2023 Do you have serious difficulty walking or climbing stairs Yes 08/19/2023 12:11 PM Ria Brown RN Yes [facility] 08-19-2023 Do you have difficul ty dressing or bathing Yes 08/19/2023 12:11 PM Ria Brown RN Yes [facility] 08-19-2023 Because of a physica l, mental, or emotional condition, do you have difficulty doing errands alone such as visiting a physician's office or shopping Yes 08/19/2023 12:11 PM Ria Brown RN Yes [facility] 07-09-2023 Functional status Ambulates;Beds frances Commode [facility] Work Phone: 06-23-2023 Functional status Ambulates [facility] Work Phone: 06-16-2023 Functional status Chair [facility] Work Phone: 06-06-2023 Functional status Chair [facility] Work Phone: 12-03-2022 Functional status Ambulates;Vásquez le Feet;Chair [facility] Work Phone: Mental Status Date Assessment Result Facility 10-31-2024 Cognitive function Voice/Name [facility] Work Phone: 08-10-2024 Cognitive function Voice/Name [facility] Work Phone: 07-27-2024 Cognitive function Voice/Name [facility] Work Phone: 07-11-2024 Cognitive function Voice/Name [facility] Work Phone: 06-05-2024 Cognitive function Awake [facility] Work Phone: 06-05-2024 Cognitive function Voice/Name [facility] Work Phone: 09-01-2023 Cognitive function Awake;Alert;A ppropriate;Fol lows Commands [facility] Work Phone: 08-19-2023 Because of a physica l, mental, or emotional condition, do you have serious difficulty concentrating, remembering, or making decisions No 08/19/2023 12:11 PM Ria Brown RN No [facility] 07-09-2023 Cognitive function Voice/Name [facility] Work Phone: 07-07-2023 Cognitive function Awake;Alert;Appropriat e [facility] Work Phone: 06-23-2023 Cognitive function Voice/Name [facility] Work Phone: 06-20-2023 Cognitive function Voice/Name [facility] Work Phone: 06-16-2023 Cognitive function Voice/Name [facility] Work Phone: 06-15-2023 Cognitive function Appropriate;Cooperativ e [facility] Work Phone: 06-06-2023 Cognitive function Appropriate;C ooperative;Anx ious [facility] Work Phone: 12-03-2022 Cognitive function Appropriate;Cooperativ e [facility] Work Phone: 11-30-2022 Cognitive function Level Of Cons ciousness Awake;Alert;Appropriate;Fol lows Commands [facility] Work Phone: 11-28-2022 Cognitive function Voice/Name [facility] Work Phone: Clinical Notes 08-15-2015 to 01-03-2025 Note Date & Type Note Facility 01-03-2025 History and physical note Note Date/Time January 03, 2025 12:02pm [facility] Medical Records Department [address] [place] [address] History & Physical Exam 01/03/25 1155 MR#: [id number] Acct: [id number] Name: SNEHA CARDENAS Rep #:[id number] : 1955 69 From: Livan Love MD PCP: Dr. Julio Draper MD Status:R EG [place] Location: [facility] HPI - General HPI Narrative SNEHA CARDENAS, is a 69 F who presents with left basilic fistula with diminishedaccess flow testing. Able to complete session, no prolonged bleeding. [facility] Medical History End stage renal disease on dialysis Pulmonary nodule Anemia of chronic disease Sepsis End stage chronic kidney disease Pneumonia End-stage renal disease (ESRD) Post-menopausal History of steroid therapy History of renal dialysis Blackout Gastric reflux Emphysema, unspecified Shortness of breath on exertion Normal Holter exam History of echocardiogram Hypertension Cardiology follow-up encounter History of heart attack History of atrial fibrillation Hemodialysis catheter malfunction Former cigarette smoker GERD (gastroesophageal reflux disease) Hyperlipidemia History of GI bleed Pleural effusion ESRD (end stage renal disease) on dialysis Essential hypertension NSTEMI (non-ST elevated myocardial infarction) EARNEST (acute kidney injury) Hx of ulcer disease Former smoker Atrial fibrillation Elevated blood pressure reading without diagnosis of hypertension Chronic hypoxemic respiratory failure Acute bronchospasm Acute exacerbation of chronic obstructive pulmonary disease Empyema of pleural space Syncope Bleeding ulcer Anemia requiring transfusions Lung nodules Pleurisy On home oxygen therapy Migraines Hyperglycemia Elevated serum creatinine Sinus tachycardia Fever and chills Dyspnea on exertion Acute bronchospasm COPD exacerbation Leukocytosis Community acquired pneumonia Anxiety Benign essential tremor Former tobacco use Pneumonia due to COVID-19 virus Asthma COPD (chronic obstructive pulmonary disease) Tobacco use Tremor Benign essential hypertension Home Medications ?Medication ?Instructions ?Recorded ?Last Taken ?Type albuterol sulfate 90 mcg/actuation 2 puff inhalation Q 4H PRN PRN 08/28/15 10/30/24 History aerosol inhaler (Ventolin HFA) Shortness Of Breath montelukast 10 mg tablet 10 mg PO QHS ALLERGIES 02/2510/30/24 History fluticasone propionate 50 2 spray intranasal QHS ALLER GIES 05/01/21 01/03/25 History mcg/actuation nasal spray,suspension atorvastatin 40 mg tablet 40 mg PO QHS 09/23/23 History isosorbide mononitrate 60 mg 60 mg PO DAILY 09/23/23 0 10/30/24 History tablet,extended release 24 hr nitroglycerin 0.4 mg sublingual 0.4 mg sublingual Q5-1 5M PRN chest 09/23/23 Unknown History tablet pain buspirone 10 mg tablet 10 mg PO QHS 09/27/23 History vitamin B complex-vitamin C-folic 1 tab PO DAILY 05/2210/30/24 History acid 0.8 mg tablet (Galina-Jose Elias) sucralfate 1 gram tablet 1 g PO DAILY GI 07/08/24 History acetaminophen 650 mg 650 mg PO Q6H PRN pain 07/2310/31/24 History tablet,extended release (8 Hour Pain Reliever) cholecalciferol (vitamin D3) 25 25 mcg PO MOWEFR 07/2310/29/24 History mcg (1,000 unit) capsule (Vitamin D3) ipratropium 0.5 mg-albuterol 3 mg 3 ml continuous nebu lization Q6H 08/06/24 10/30/24 History (2.5 mg base)/3 mL nebulization PRN PRN wheezing soln pantoprazole 40 mg tablet,delayed 40 mg PO DAILY 08/0610/30/24 History release alendronate 70 mg tablet 70 mg PO QWEEK 10/31/24 04/11/25 History azithromycin 250 mg tablet 250 mg PO DAILY 10/31/24 History calcium acetate(phosphat bind) 667 667 mg PO TID 10/3110/30/24 History mg capsule fluticasone fur. 200 mcg-umeclid 1 ea inhalation DAILY 10/31/24 10/30/24 History 62.5 mcg-vilant 25 mcg inhalat.powder (Trelegy Ellipta) ferrous sulfate 325 mg (65 mg 325 mg PO QDAY 11/01/24 Unknown History iron) tablet,delayed release Allergy/AdvReac Type Severity Reaction Status Date / Time cephalexin monohydrate (From Allergy Chest Verified 11/01/24 11:35 Keflex) tightness vancomycin AdvReac Mild Itching Verified 11/01/24 11:35 Family History Other Adopted Surgical History Hx of surgical procedure Hx of colonoscopy AVF (arteriovenous fistula) (03/13/24) Hx of colonoscopy History of cardiac catheterization Hx of total shoulder replacement Hx of chest tube placement Hx of esophagogastroduodenoscopy H/O bilateral salpingectomy History of herniorrhaphy Hx of tonsillectomy Hx of cholecystectomy Social History adopted: Yes household members: family housing: house Smoking Status: Former smoker how long ago did patient quit smokin years ago alcohol intake: never substance use type: does not use caffeine: Yes Type: coffee Number of servings: 1 ROS Constitutional Constitutional: Denies chills, fever(s), frequent falls, lethargy or weakness Eyes Eyes: Denies blind spots, change in vision or loss of vision ENT HEENT: Denies bleeding gums, hoarseness or sore throat Cardiovascular Cardiovascular: Denies abdominal pain, bluish discoloration of hand/feet, chest pain with activity, claudication, cold extremities, cyanosis, dyspnea on exertion, erythema on extremities, irregular heart rhythm, leg edema, leg ulcers, numbness in extremities or weakness in extremities Respiratory/Chest Respiratory/Chest: Denies cough, excessive phlegm production, shortness of breath at rest, shortness of breath with exertion or wheezing Gastrointestinal Gastrointestinal: Denies anorexia, change in stool character, constipation, diarrhea, melena or rectal bleeding Genitourinary Genitourinary: Denies dysuria or hematuria Musculoskeletal Musculoskeletal: Denies abnormal gait Integumentary Integumentary: Reports other Details: ; Denies erythema, non-healing lesions or wounds Neurologic Neurologic: Denies abnormal speech, focal weakness, headache(s), loss of vision,numbness, paresthesias or sensory deficit Hematologic/Lymphatic Hematologic/Lymphatic: Denies easy bleeding, easy bruising or lymphadenopathy Vital Signs Vital Signs Vital Signs: Weight Weight: 145 lb 8 oz Body Mass Index (BMI) 25.0 Physical Exam Const alert, oriented x3, no apparent distress and healthy appearing General Appearance: cooperative; Negative for combative or lethargic Orientation / Consciousness: awake Exam Limitations: no limitations HEENT Head and Scalp: normocephalic and atraumatic Eyes EOMs intact bilaterally General Eye: normal appearance of both eyes Neck full ROM, no lymphadenopathy, thyroid normal and No no carotid bruits General: trachea midline; Negative for lymphadenopathy or tenderness Thyroid: thyroid normal Lymph Lymphatic: Negative for no lymphadenopathy noted Resp normal respiratory effort and no use of accessory muscles Effort and Inspection: Negative for labored, stridor or audible wheezes Cardio regular rate and regular rhythm Cardio Narrative: +thrill in fistula, diminished mid arm Peripheral Pulses: brachial pulses present and radial pulses present Back/Spine Cervical Spine: cervical ROM normal Extremity full ROM, normal capillary refill and no clubbing, cyanosis or edema Skin no rashes or lesions noted and no wounds Neuro oriented x3, CN's II-XII intact bilaterally, no focal motor deficits and no sensory deficits noted Psych thought process normal, cooperative, affect normal, speech normal and activity/motor behavior normal Assessment & Plan Assessment/Plan (1) Dialysis AV fistula malfunction: QUALIFIERS: Encounter type: initial encounter Qualified Code(s): T82.590A - Other mechanical complication of surgically created arteriovenous fistula, initial encounter PLAN: -fistulagram 01/03/25 1202 <Electronically signed by Livan Love MD> Cosigner Signature (if applicable): CC: Dr. Livan Love MD; Dr. Julio Draper MD~ Signed [facility] Work Phone: 1(767) 106-902707-03-2025 History and physical note [facility] Medical Records Department [address] [place] [id number] History & Physical Exam 01/03/25 1155 MR#: [id number] Acct: [id number] Name: SNEHA CARDENAS Rep #:[id number] : 1955 69 From: Livan Love MD PCP: Dr. Julio Draper MD Status:R [facility] Location: [facility] HPI - General HPI Narrative SNEHA CARDENAS, is a 69 F who presents with left basilic fistula with diminishedaccess flow testing. Able to complete session, no prolonged bleeding. [facility] Medical History End stage renal disease on dialysis Pulmonary nodule Anemia of chronic disease Sepsis End stage chronic kidney disease Pneumonia End-stage renal disease (ESRD) Post-menopausal History of steroid therapy History of renal dialysis Blackout Gastric reflux Emphysema, unspecified Shortness of breath on exertion Normal Holter exam History of echocardiogram Hypertension Cardiology follow-up encounter History of heart attack History of atrial fibrillation Hemodialysis catheter malfunction Former cigarette smoker GERD (gastroesophageal reflux disease) Hyperlipidemia History of GI bleed Pleural effusion ESRD (end stage renal disease) on dialysis Essential hypertension NSTEMI (non-ST elevated myocardial infarction) EARNEST (acute kidney injury) Hx of ulcer disease Former smoker Atrial fibrillation Elevated blood pressure reading without diagnosis of hypertension Chronic hypoxemic respiratory failure Acute bronchospasm Acute exacerbation of chronic obstructive pulmonary disease Empyema of pleural space Syncope Bleeding ulcer Anemia requiring transfusions Lung nodules Pleurisy On home oxygen therapy Migraines Hyperglycemia Elevated serum creatinine Sinus tachycardia Fever and chills Dyspnea on exertion Acute bronchospasm COPD exacerbation Leukocytosis Community acquired pneumonia Anxiety Benign essential tremor Former tobacco use Pneumonia due to COVID-19 virus Asthma COPD (chronic obstructive pulmonary disease) Tobacco use Tremor Benign essential hypertension Home Medications ?Medication ?Instructions ?Recorded ?Last Taken ?Type albuterol sulfate 90 mcg/actuation 2 puff inhalation Q 4H PRN PRN 08/28/15 10/30/24 History aerosol inhaler (Ventolin HFA) Shortness Of Breath montelukast 10 mg tablet 10 mg PO QHS ALLERGIES 02/2510/30/24 History fluticasone propionate 50 2 spray intranasal QHS ALLER GIES 05/01/21 01/03/25 History mcg/actuation nasal spray,suspension atorvastatin 40 mg tablet 40 mg PO QHS 09/23/23 History isosorbide mononitrate 60 mg 60 mg PO DAILY 09/23/23 0 10/30/24 History tablet,extended release 24 hr nitroglycerin 0.4 mg sublingual 0.4 mg sublingual Q5-1 5M PRN chest 09/23/23 Unknown History tablet pain buspirone 10 mg tablet 10 mg PO QHS 09/27/23 History vitamin B complex-vitamin C-folic 1 tab PO DAILY 05/2210/30/24 History acid 0.8 mg tablet (Galina-Jose Elias) sucralfate 1 gram tablet 1 g PO DAILY GI 07/08/24 History acetaminophen 650 mg 650 mg PO Q6H PRN pain 07/2310/31/24 History tablet,extended release (8 Hour Pain Reliever) cholecalciferol (vitamin D3) 25 25 mcg PO MOWEFR 07/2310/29/24 History mcg (1,000 unit) capsule (Vitamin D3) ipratropium 0.5 mg-albuterol 3 mg 3 ml continuous nebu lization Q6H 08/06/24 10/30/24 History (2.5 mg base)/3 mL nebulization PRN PRN wheezing soln pantoprazole 40 mg tablet,delayed 40 mg PO DAILY 08/0610/30/24 History release alendronate 70 mg tablet 70 mg PO QWEEK 10/31/24 04/11/25 History azithromycin 250 mg tablet 250 mg PO DAILY 10/31/24 History calcium acetate(phosphat bind) 667 667 mg PO TID 10/3110/30/24 History mg capsule fluticasone fur. 200 mcg-umeclid 1 ea inhalation DAILY 10/31/24 10/30/24 History 62.5 mcg-vilant 25 mcg inhalat.powder (Trelegy Ellipta) ferrous sulfate 325 mg (65 mg 325 mg PO QDAY 11/01/24 Unknown History iron) tablet,delayed release Allergy/AdvReac Type Severity Reaction Status Date / Time cephalexin monohydrate (From Allergy Chest Verified 11/01/24 11:35 Keflex) tightness vancomycin AdvReac Mild Itching Verified 11/01/24 11:35 Family History Other Adopted Surgical History Hx of surgical procedure Hx of colonoscopy AVF (arteriovenous fistula) (03/13/24) Hx of colonoscopy History of cardiac catheterization Hx of total shoulder replacement Hx of chest tube placement Hx of esophagogastroduodenoscopy H/O bilateral salpingectomy History of herniorrhaphy Hx of tonsillectomy Hx of cholecystectomy Social History adopted: Yes household members: family housing: house Smoking Status: Former smoker how long ago did patient quit smokin years ago alcohol intake: never substance use type: does not use caffeine: Yes Type: coffee Number of servings: 1 ROS Constitutional Constitutional: Denies chills, fever(s), frequent falls, lethargy or weakness Eyes Eyes: Denies blind spots, change in vision or loss of vision ENT HEENT: Denies bleeding gums, hoarseness or sore throat Cardiovascular Cardiovascular: Denies abdominal pain, bluish discoloration of hand/feet, chest pain with activity,claudication, cold extremities, cyanosis, dyspnea on exertion, erythema on extremities, irregular heart rhythm, leg edema, leg ulcers, numbness in extremities or weakness in extremities Respiratory/Chest Respiratory/Chest: Denies cough, excessive phlegm production, shortness of breath at rest, shortness of breath with exertion or wheezing Gastrointestinal Gastrointestinal: Denies anorexia, change in stool character, constipation, diarrhea, melena or rectal bleeding Genitourinary Genitourinary: Denies dysuria or hematuria Musculoskeletal Musculoskeletal: Denies abnormal gait Integumentary Integumentary: Reports other Details: ; Denies erythema, non-healing lesions or wounds Neurologic Neurologic: Denies abnormal speech, focal weakness, headache(s), loss of vision,numbness, paresthesias or sensory deficit Hematologic/Lymphatic Hematologic/Lymphatic: Denies easy bleeding, easy bruising or lymphadenopathy Vital Signs Vital Signs Vital Signs: Weight Weight: 145 lb 8 oz Body Mass Index (BMI) 25.0 Physical Exam Const alert, oriented x3, no apparent distress and healthy appearing General Appearance: cooperative; Negative for combative or lethargic Orientation / Consciousness: awake Exam Limitations: no limitations HEENT Head and Scalp: normocephalic and atraumatic Eyes EOMs intact bilaterally General Eye: normal appearance of both eyes Neck full ROM, no lymphadenopathy, thyroid normal and No no carotid bruits General: trachea midline; Negative for lymphadenopathy or tenderness Thyroid: thyroid normal Lymph Lymphatic: Negative for no lymphadenopathy noted Resp normal respiratory effort and no use of accessory muscles Effort and Inspection: Negative for labored, stridor or audible wheezes Cardio regular rate and regular rhythm Cardio Narrative: +thrill in fistula, diminished mid arm Peripheral Pulses: brachial pulses present and radial pulses present Back/Spine Cervical Spine: cervical ROM normal Extremity full ROM, normal capillary refill and no clubbing, cyanosis or edema Skin no rashes or lesions noted and no wounds Neuro oriented x3, CN's II-XII intact bilaterally, no focal motor deficits and no sensory deficits noted Psych thought process normal, cooperative, affect normal, speech normal and activity/motor behavior normal Assessment & Plan Assessment/Plan (1) Dialysis AV fistula malfunction: QUALIFIERS: Encounter type: initial encounter Qualified Code(s): T82.590A - Other mechanical complication of surgically created arteriovenous fistula, initial encounter PLAN: -fistulagram 01/03/25 1202 Cosigner Signature (if applicable): CC: Dr. Livan Love MD; Dr. Julio Draper MD~ Signed [facility]07-03-2025 [facility]05-29-2025 Telephone encounter Note* Telephone Encounter - Abimbola Lewis LPN - 11/29/2024 3:06 PM EDT Results scanned to [facility]. Patient notified results within normal limits. Abimbola Lewis LPN [facility]05-29-2025 Miscellaneous Notes* Telephone Encounter - Abimbola Lewis LPN - 11/29/2024 3:06 PM EDT Results scanned to [facility]. Patient notified results within normal limits. Abimbola Lewis LPN * Telephone Encounter - Abimbola Lewis LPN - 11/29/2024 11:34 AM EDT No results received and no order placed for overnight oximetry from this office. Called Sunil at [facility]. 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 She will send the results for review. Abimbola Lewis LPN * Telephone Encounter - Janie Yanes LPN - 11/29/2024 10:28 AM EDT Patient is wanting results from [facility]. Patient has an O2 monitor and Jean-Pierre Vitale recommend patient call office back to find out results. Patient stated that she had monitor on x 1 month ago. Please review and advise further. Janie Yanes LPN [facility] Telephone encounter Note * Telephone Encounter - Abimbola Lewis LPN - 11/29/2024 11:34 AM EDT No results received and no order placed for overnight oximetry from this office. Called Sunil at [facility]. 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 She will send the results for review. Abimbola Lewis LPN [facility]05-29-2025 Telephone encounter Note* Telephone Encounter - Janie Yanes LPN - 11/29/2024 10:28 AM EDT Patient is wanting results from [facility]. Patient has an O2 monitor and Jean-Pierre Vitale recommend patient call office back to find out results. Patient stated that she had monitor on x 1 month ago. Please review and advise further. Janie Yanes LPN [facility]05-16-2025 Telephone encounter Note* Telephone Encounter - Magali Nieves MD - 11/16/2024 12:17 PM EDT Spoke to Sneha regarding chest CT. Most nodules stable, one in MELLISA slightly smaller. 2 cm GGO stable. Radiologist believes GGO is area of atelectasis based no side view showing it is flat. Patient at risk for cancer but not an operative candidate. Repeat imaging [facility]05-16-2025 Miscellaneous Notes* Telephone Encounter - Magali Nieves MD - 11/16/2024 12:17 PM EDT Spoke to Sneha regarding chest CT. Most nodules stable, one in MELLISA slightly smaller. 2 cm GGO stable. Radiologist believes GGO is area of atelectasis based no side view showing it is flat. Patient at risk for cancer but not an operative candidate. Repeat imaging [facility] History of Present illness Narrative* Jessica, Jean-Pierre Garnica APRN.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 - 11/14/2024 3:00 PM EDT Images from the original note were not included. Pulmonary Medicine Patients name: Sneha Cardenas PCP: Julio Draper MD CC: follow-up HPI: Sneha Cardenas is a 69 year old female former 20 pack year smoker with PMH significant for tremors, HTN, COVID PNA 2020, chronic hypoxemic respiratory failure, AF (not anticoagulated due to GIB), severe COPD/emphysema, multiple nodules on chest imaging and 2 cm RUL GGO, history notable for complicated parapneumonic effusion requiring chest tube, ESRD requiring dialysis, chronic small Rt pleural effusion. Current therapy with Trelegy Ellipta and PRN Albuterol. She presents today for follow-up. RONALD 09/2024 following multiple hospitalizations. Had just been started on daily Azithroymycin by herPCP a month prior. Trelegy dose was increased to 200. She was seen by her PCP on 10/08 d/t difficultybreathing and treated with Prednisone. Overall, she reports feeling an improvement in respiratory symptoms since starting high dose Trelegy. Denies any further hospitalizations/ED visits related to her breathing. She has been heaving heart rhythm issues and is scheduled to have a heart monitor placed. Established with [facility]. She also had an updated chest CT 11/06 d/t GGO and lung nodules with stable findings. Today, she reports intermittent cough related to allergies, uses Singulair and Flonase which has been helpful. No wheezing/chest tightness. No dyspnea at rest. Exertional dyspnea has not changed and she continues to note with minimal exertion. No fevers, chills, or night sweats. Has gained some weight back that she previously lost d/t hospitalizations. DME: [employer] 3L at rest and nocturnal 4L with exertion PAST MEDICAL HISTORY Diagnosis Date Age-related osteoporosis without current pathological fracture 08/28/2021 EARNEST (acute kidney injury) ([facility]) EARNEST (acute kidney injury) ([facility]) Anemia requiring transfusions 06/15/2023 Antibiotic-associated diarrhea 07/14/2023 Asthma Benign essential tremor Chronic obstructive pulmonary disease ([facility]) 07/25/2012 Chronic respiratory failure with hypoxia ([facility]) 11/05/2022 Coagulation defect, unspecified ([facility]) 08/25/2023 COPD (chronic obstructive pulmonary disease) ([facility]) 07/25/2012 FEV1 0.84L (32%), 10/18/2014 Coronary artery disease 08/19/2023 DDD (degenerative disc disease), cervical 08/15/2015 Empyema ([facility]) 07/09/2023 Environmental allergies Wheezes with hay or dust ESRD (end stage renal disease) ([facility]) Essential and other specified forms of tremor 11/02/2007 Benign essential -- started primidone 06/03/09, Dr. Nguyễn Essential tremor 11/02/2007 Benign essential -- started primidone 06/03/09, Dr. Nguyễn Gastrointestinal hemorrhage associated with peptic ulcer 08/02/2023 Hemodialysis catheter malfunction ([facility]) 08/19/2023 History of colon polyps 2010 Tubular adenoma. Hypertension Hypoxemia 05/01/2021 Post Covid pneumonia. Irritable bowel syndrome Lung nodule Migraine headache Improved with primidone Multiple duodenal ulcers 06/30/2023 NSTEMI (non-ST elevated myocardial infarction) ([facility]) 07/20/2023 Parapneumonic effusion Pneumonia due to COVID-19 virus 05/01/2021 Pneumonia due to infectious organism 06/30/2023 Pulmonary emphysema ([facility]) 07/19/2023 Scoliosis Shock, septic ([facility]) 07/11/2023 Snoring Tobacco use disorder Quit 03/04/2015. Unspecified gastritis and gastroduodenitis without mention of hemorrhage 02/09/2010 Small ulcer on EGD 2009 Upper GI bleed 02/09/2010 Allergies: Keflex [Cephalexin] Intolerance Comment:Tachycardia, palpitations. Vancomycin Hives Medication List Accurate as of November 13, 2024 9:16 PM. If you have any questions, ask your nurse or doctor. CONTINUE taking these medications acetaminophen 325 mg tablet Commonly known as: TYLENOL ADULT PROBIOTIC ORAL albuterol HFA 90 mcg/actuation inhaler Commonly known as: PROAIR HFA Inhale 2 Puffs as instructed every 4 hours as needed for wheezing/shortness of breath. alendronate 70 mg tablet Commonly known as: FOSAMAX Take 1 tablet by mouth one time a week. in the AM with glass of water on empty stomach. Do not takeanything else by mouth or lie down for 30 min atorvastatin 40 mg tablet Commonly known as: LIPITOR Take 1 tablet by mouth daily at bedtime. For cholesterol. benzonatate 100 mg capsule Commonly known as: TESSALON PERLE Take 2 capsules by mouth three times a day as needed for cough. busPIRone 10 mg tablet Commonly known as: BUSPAR Take 1 tablet by mouth two times a day. calcium acetate(phosphat bind) 667 mg capsule Commonly known as: PHOSLO fluticasone 50 mcg/actuation nasal spray Commonly known as: FLONASE Use 2 sprays in each nostril once daily. Rinse mouth after use. ipratropium-albuterol 0.5 mg-3 mg(2.5 mg base)/3 mL Nebu Commonly known as: DUONEB Inhale 3 mL as instructed every 4 hours as needed for wheezing/shortness of breath. isosorbide mononitrate ER 60 mg 24 hr tablet Commonly known as: IMDUR Take 1 tablet by mouth once daily. MIRALAX 17 gram/dose powder Generic drug: polyethylene glycol 3350 montelukast 10 mg tablet Commonly known as: SINGULAIR Take 1 tablet by mouth daily at bedtime. NITROSTAT 0.4 mg SL tablet Generic drug: nitroglycerin sublingual ondansetron orally disintegrating 4 mg disintegrating tablet Commonly known as: ZOFRAN ODT Take 1 tablet by mouth every 8 hours as needed for nausea/vomiting. OXYGEN (HOME THERAPY) pantoprazole DR 40 mg tablet Commonly known as: PROTONIX Take 1 tablet by mouth once daily. predniSONE 10 mg tablet Commonly known as: DELTASONE TAKE BY MOUTH 4 TABLETS DAILY FOR 2 DAYS, THEN 3 TABLETS DAILY FOR 2 DAYS, THEN 2 TABLETS DAILY FOR2 DAYS, THEN 1 TABLET DAILY FOR 2 DAYS. sucralfate 1 gram tablet Commonly known as: CARAFATE Take 1 tablet by mouth two times a day. TRELEGY ELLIPTA 200-62.5-25 mcg inhalation powder Generic drug: rjwudisfsfk-ffhtwzlct-hfeyydzm Inhale 1 Puff as instructed once daily. DATA: I personally reviewed and analyzed all labs, radiographs and available pulmonary function testing PFT: 05/2021 Spirometry indicates severe obstruction CXR: Last XR Chest - Impression Only XR CHEST 2V FRONTAL/LAT Exam End: 10/08/2024 7:27 PM (Final result) Impression: IMPRESSION: Improved. Minimal persistent linear atelectasis at the right lung base Director Of Vocational Training: JING Transcribe Date/Time: Oct 09 2024 1:47P ... CT Chest: 11/06/2024 IMPRESSION: 1. No new or enlarging pulmonary nodules or thoracic lymphadenopathy. Slightly decreased in size of lateral right upper lobe pulmonary nodule. 2. Stable right upper lobe groundglass nodule, flat on coronal and sagittal image, likely a scarring or atelectasis. 3. Unchanged chronic small bilateral pleural effusions with pleural thickening. Director Of Vocational Training: JING Transcribe Date/Time: Nov 12 2024 11:24A Dictated by : MAE CRAIG MD This examination was interpreted and the report reviewed and electronically signed by: MAE CRAIG MD on Nov 12 2024 11:30AM EST Results-Findings * * *Final Report* * * DATE OF EXAM: Nov 06 2024 10:16AM [facility] [id number] - CT CHEST WO IVCON / PROCEDURE REASON: Ground glass opacity present on imaging of lung * * * * Physician Interpretation * * * * EXAMINATION: CHEST CT WITHOUT CONTRAST CLINICAL HISTORY: Ground glass opacity present on imaging of lung Technique: Spiral CT acquisition of the chest from the thoracic inlet to the upper abdomen without contrast. MQ: [id number] CT Radiation dose: Integrated Dose-length product (DLP) for this visit = 242 mGy*cm CT Dose Reduction Employed: Automated exposure control(AEC) and iterative recon Comparison: Chest CT dated 05/10/2024 RESULT: Limitations: None. Lines, tubes, and devices: None. Lung parenchyma and airways: No consolidation. No suspicious pulmonary nodule. Slightly decreased in size of 5 mm lateral right upper lobe pulmonary nodule on image 34, previously 8 mm. Unchanged in size of a 7 mm medial left upper lobe subpleural nodule on image 34, a 6 mm anterior left upper lobe nodule on image 50, a 4 mm posterior left lower lobe nodule on image 147. Stable 2.2 x 1.3 cm right upper lobe groundglass nodule on image 100, series 6, which is flat on coronal and sagittal image, likely scarring or atelectasis. Scattered linear atelectasis/scarring in the middle lobe, and bilateral lower lobes.. Moderate upper lung predominant centrilobular and paraseptal emphysema. Mild biapical scarring, likely post inflammatory.. No endotracheal or central endobronchial lesion is identified. Pleural space: Unchanged chronic small bilateral pleural effusions with pleural thickening. No pneumothorax. Lower neck, lymph nodes, and mediastinum: The imaged thyroid gland is normal. No lymphadenopathy in the supraclavicular, axillary, mediastinal, or hilar regions. The esophagus is unremarkable. Heart, pericardium, and thoracic vessels: The ascending aorta is enlarged measuring up to 4 cm. The pulmonary trunk is normal in size. The cardiac chambers are normal in size. Mild coronary artery atherosclerotic calcifications are noted, although the study is not optimized for coronary assessment. No pericardial effusion or thickening. Aortic valve calcifications are present. Moderate atherosclerotic calcifications of the thoracic aorta and arch vessels. Bones and soft tissues: No acute osseous abnormality. Status post right shoulder arthroplasty. Upper abdomen: No acute abnormality in the imaged upper abdomen. Localizer images: No additional findings. Labs: WBC (k/uL) Date Value 09/20/2024 9.93 04/05/2020 7.61 RBC (m/uL) Date Value 09/20/2024 3.07 04/05/2020 4.75 Hemoglobin (g/dL) Date Value 09/20/2024 9.5 04/05/2020 14.1 Hematocrit (%) Date Value 09/20/2024 31.4 04/05/2020 44.1 Platelet Count (k/uL) Date Value 09/20/2024 420 04/05/2020 367 MPV (fL) Date Value 09/20/2024 9.1 04/05/2020 10.4 Neut% (%) Date Value 09/26/2012 57.3 Neutrophils % (%) Date Value 08/17/2023 83.8 Eosin% (%) Date Value 09/26/2012 2.4 Eosinophils % (%) Date Value 08/17/2023 2.5 Baso% (%) Date Value 09/26/2012 0.6 Basophils % (%) Date Value 08/17/2023 0.8 Abs Neut (ANC) (k/uL) Date Value 09/26/2012 4.01 Abs Neut (k/uL) Date Value 08/17/2023 15.51 Abs Robertson (k/uL) Date Value 08/17/2023 0.89 09/26/2012 0.53 Abs Eosin (k/uL) Date Value 08/17/2023 0.47 09/26/2012 0.17 Abs Baso (k/uL) Date Value 08/17/2023 0.15 09/26/2012 0.04 Review of Systems Constitutional: Negative for activity change, appetite change and unexpected weight change. HENT: Negative for mouth sores, postnasal drip and sinus pain. Respiratory: Positive for cough and shortness of breath. Negative for chest tightness and wheezing. Cardiovascular: Positive for palpitations (intermittent). Negative for chest pain and leg swelling. Allergic/Immunologic: Positive for environmental allergies. Neurological: Negative for weakness and headaches. BP 120/60 Pulse 89 Resp 17 Wt 61.6 kg (135 lb 12.9 oz) SpO2 90% BMI 23.68 kg/m Physical Exam Vitals reviewed. Constitutional: General: She is not in acute distress. Appearance: Normal appearance. She is not ill-appearing. HENT: Head: Normocephalic. Nose: No rhinorrhea. Mouth/Throat: Mouth: Mucous membranes are moist. Pharynx: No oropharyngeal exudate or posterior oropharyngeal erythema. Cardiovascular: Rate and Rhythm: Normal rate and regular rhythm. Heart sounds: Normal heart sounds. Pulmonary: Effort: Pulmonary effort is normal. No respiratory distress. Breath sounds: No wheezing. Musculoskeletal: Right lower leg: No edema. Left lower leg: No edema. Lymphadenopathy: Cervical: No cervical adenopathy. Skin: General: Skin is warm and dry. Capillary Refill: Capillary refill takes less than 2 seconds. Neurological: General: No focal deficit present. Mental Status: She is alert. ASSESSMENT/PLAN: 1. COPD, severe (HCC) - ICD9: 496, ICD10: J44.9 (primary diagnosis) - continue current therapy with Trelegy 200 and as needed Albuterol/Duoneb. - discussed using as needed treatments prior to exertional activity. - IPRATROPIUM 0.5 MG-ALBUTEROL 3 MG (2.5 MG BASE)/3 ML NEBULIZATION SOLN 2. Ground glass opacity present on imaging of lung - ICD9: 793.19, ICD10: R91.8 - review of chest CT from 11/06 with stable 2.2 x 1.3 cm GGO in the RUL. 3. Chronic hypoxemic respiratory failure (HCC) - ICD9: 518.83, 799.02, ICD10: J96.11 - continues to be complaint and benefit from supplemental O2 F/u 4 months Portions of this documentation were copied and pasted from previous office visit notes in order to provide a cohesive continuity of the history. The note has been reviewed and edited and updated as necessary. Jean-Pierre Vitale APRN.MARIAN I spent a total of 26 minutes on the date of the service which included preparing to see the patient, [id number] patient care, completing clinical documentation, performing a medically appropriate examination, counseling and educating the patient/family/caregiver, and ordering medications, tests,or procedures. [facility] NoteHNO ID: [id number] Author: JEAN-PIERRE VITALE APRN.CNP Service: ? Author Type: Nurse Practitioner Type: Progress Notes Filed: 11/14/2024 15:48 Note Text: Pulmonary Medicine Patients name: Sneha Cardenas PCP: Julio Draper MD CC: follow-up HPI: Sneha Cardenas is a 69 year old female former 20 pack year smoker with PMH significant for tremors, HTN, COVID PNA 2020, chronic hypoxemic respiratory failure, AF (not anticoagulated due to GIB), severe COPD/emphysema, multiple nodules on chest imaging and 2 cm RUL GGO, history notable for complicated parapneumonic effusion requiring chest tube, ESRD requiring dialysis, chronic small Rt pleural effusion. Current therapy with Trelegy Ellipta and PRN Albuterol. She presents today for follow-up. RONALD 09/2024 following multiple hospitalizations. Had just been started on daily Azithroymycin by her PCP a month prior. Trelegy dose was increased to 200. She was seen by her PCP on 10/08 d/t difficulty breathing and treated with Prednisone. Overall, she reports feeling an improvement in respiratory symptoms since starting high dose Trelegy. Denies any further hospitalizations/ED visits related to her breathing. She has been heaving heart rhythm issues and is scheduled to have a heart monitor placed. Established with [facility]. She also had an updated chest CT 5/6 d/t GGO and lung nodules with stable findings. Today, she reports intermittent cough related to allergies, uses Singulair and Flonase which has been helpful. No wheezing/chest tightness. No dyspnea at rest. Exertional dyspnea has not changed and she continues to note with minimal exertion. No fevers, chills, or night sweats. Has gained some weight back that she previously lost d/t hospitalizations. DME: [employer] 3L at rest and nocturnal 4L with exertion PAST MEDICAL HISTORY Diagnosis Date Age-related osteoporosis without current pathological fracture 08/28/2021 EARNEST (acute kidney injury) ([facility]) EARNEST (acute kidney injury) ([facility]) Anemia requiring transfusions 06/15/2023 Antibiotic-associated diarrhea 07/14/2023 Asthma Benign essential tremor Chronic obstructive pulmonary disease ([facility]) 07/25/2012 Chronic respiratory failure with hypoxia ([facility]) 11/05/2022 Coagulation defect, unspecified ([facility]) 08/25/2023 COPD (chronic obstructive pulmonary disease) ([facility]) 07/25/2012 FEV1 0.84L (32%), 10/18/2014 Coronary artery disease 08/19/2023 DDD (degenerative disc disease), cervical 08/15/2015 Empyema ([facility]) 07/09/2023 Environmental allergies Wheezes with hay or dust ESRD (end stage renal disease) ([facility]) Essential and other specified forms of tremor 11/02/2007 Benign essential -- started primidone 06/03/09, Dr. Nguyễn Essential tremor 11/02/2007 Benign essential -- started primidone 06/03/09, Dr. Nguyễn Gastrointestinal hemorrhage associated with peptic ulcer 08/02/2023 Hemodialysis catheter malfunction ([facility]) 08/19/2023 History of colon polyps 2010 Tubular adenoma. Hypertension Hypoxemia 05/01/2021 Post Covid pneumonia. Irritable bowel syndrome Lung nodule Migraine headache Improved with primidone Multiple duodenal ulcers 06/30/2023 NSTEMI (non-ST elevated myocardial infarction) ([facility]) 07/20/2023 Parapneumonic effusion Pneumonia due to COVID-19 virus 05/01/2021 Pneumonia due to infectious organism 06/30/2023 Pulmonary emphysema ([facility]) 07/19/2023 Scoliosis Shock, septic (HCC) 07/11/2023 Snoring Tobacco use disorder Quit 03/04/2015. Unspecified gastritis and gastroduodenitis without mention of hemorrhage 02/09/2010 Small ulcer on EGD 2009 Upper GI bleed 02/09/2010 Allergies: Keflex [Cephalexin] Intolerance Comment:Tachycardia, palpitations. Vancomycin Hives Medication List Accurate as of November 13, 2024 9:16 PM. If you have any questions, ask your nurse or doctor. CONTINUE taking these medications acetaminophen 325 mg tablet Commonly known as: TYLENOL ADULT PROBIOTIC ORAL albuterol HFA 90 mcg/actuation inhaler Commonly known as: PROAIR HFA Inhale 2 Puffs as instructed every 4 hours as needed for wheezing/shortness of breath. alendronate 70 mg tablet Commonly known as: FOSAMAX Take 1 tablet by mouth one time a week. in the AM with glass of water on empty stomach. Do not take anything else by mouth or lie down for 30 min atorvastatin 40 mg tablet Commonly known as: LIPITOR Take 1 tablet by mouth daily at bedtime. For cholesterol. benzonatate 100 mg capsule Commonly known as: TESSALON PERLE Take 2 capsules by mouth three times a day as needed for cough. busPIRone 10 mg tablet Commonly known as: BUSPAR Take 1 tablet by mouth two times a day. calcium acetate(phosphat bind) 667 mg capsule Commonly known as: PHOSLO fluticasone 50 mcg/actuation nasal spray Commonly known as: FLONASE Use 2 sprays in each nostril once daily. Rinse mouth after use. ipratropium-albuterol 0.5 mg-3 mg(2.5 mg base)/3 mL (more content not included)...[facility]05-14[facility] Telephone encounter Note* Telephone Encounter - Genna Lowry RN - 11/14/2024 12:16 PM EDT Patient calls and states that she was at dialysis today. Patient reports that they did labs on her and her vitamin D level was low. Patient reports that they recommend patient take vitamin D daily but told her that she needs to contact PCP for order. Patient unsure of what vitamin D level was. Patient states that she will contact dialysis to see what level was and ask them to fax over results. Genna Lowry RN [facility]05-14-[facility]25 Miscellaneous Notes* Telephone Encounter - Genna Lowry RN - 11/14/2024 12:16 PM EDT Patient calls and states that she was at dialysis today. Patient reports that they did labs on her and her vitamin D level was low. Patient reports that they recommend patient take vitamin D daily but told her that she needs to contact PCP for order. Patient unsure of what vitamin D level was. Patient states that she will contact dialysis to see what level was and ask them to fax over results. Genna Lowry RN documented in this encounterP[facility]25 NoteHNO ID: [id number] Author: JULIO DRAPER MD Service: ? Author Type: Physician Type: Progress Notes Filed: 11/13/2024 10:54 Note Text: This note was created using [employer]. Subjective Sneha Cardenas is a 69 year old female here with Cash. She was in the ER 2 weeks ago for chest pain. She was not admitted, and [facility]. She was seen by her telecommunicator 11/01/24 and Holter monitor for .paroxysmal atrial fibrillation was ordered. She was scheduled to see pulmonary here tomorrow. COPD has been relatively stable. She requested prednisone to have on hand. Review of Systems Constitutional: Negative for chills and fever. Respiratory: Positive for cough and shortness of breath. Cardiovascular: Negative for chest pain, palpitations and leg swelling. Neurological: Negative. ACTIVE PROBLEM LIST Essential Tremor Environmental Allergies Chronic Obstructive Pulmonary Disease (Hcc) Primary Hypertension Hyperlipidemia Age-Related Osteoporosis Without Current Pathological Fracture Lung Nodule Chronic Respiratory Failure With Hypoxia (Hcc) Duodenal Ulcer Paroxysmal Atrial Fibrillation (Hcc) Anemia Requiring Transfusions Dysphagia Former Smoker Nstemi (Non-St Elevated Myocardial Infarction) (Hcc) Pleural Effusion Malnutrition of Mild Degree (Hcc) Esrd (End Stage Renal Disease) (Hcc) Coronary Artery Disease Anxiety About Health Social History Tobacco Use Smoking status: Former Current packs/day: 0.00 Average packs/day: 0.5 packs/day for 42.0 years (21.0 ttl pk-yrs) Types: Cigarettes Start date: 1974 Quit date: 05/23/2016 Years since quittin.4 Smokeless tobacco: Never Tobacco comments: Resumed short period. Quit for good 05/2016. Vaping Use Vaping status: Never Used Substance Use Topics Alcohol use: No Drug use: No Current Outpatient Medications Medication Sig fluticasone (FLONASE) 50 mcg/actuation nasal spray Use 2 sprays in each nostril once daily. Rinse mouth after use. calcium acetate,phosphat bind, (PHOSLO) 667 mg capsule Take 667 mg by mouth three times a day. alendronate (FOSAMAX) 70 mg tablet Take 1 tablet by mouth one time a week. in the AM with glass of water on empty stomach. Do not take anything else by mouth or lie down for 30 min Lactobacillus combination no.8 (ADULT PROBIOTIC ORAL) Take 1 capsule by mouth once daily. xbatbsasbrv-mledzflub-khwelnjr (TRELEGY ELLIPTA) 200-62.5-25 mcg inhalation powder Inhale 1 Puff as instructed once daily. ondansetron orally disintegrating (ZOFRAN ODT) 4 mg disintegrating tablet Take 1 tablet by mouth every 8 hours as needed for nausea/vomiting. benzonatate (TESSALON PERLE) 100 mg capsule Take 2 capsules by mouth three times a day as needed for cough. isosorbide mononitrate ER (IMDUR) 60 mg 24 hr tablet Take 1 tablet by mouth once daily. montelukast (SINGULAIR) 10 mg tablet Take 1 tablet by mouth daily at bedtime. sucralfate (CARAFATE) 1 gram tablet Take 1 tablet by mouth two times a day. pantoprazole DR (PROTONIX) 40 mg tablet Take 1 tablet by mouth once daily. albuterol HFA (PROAIR HFA) 90 mcg/actuation inhaler Inhale 2 Puffs as instructed every 4 hours as needed for wheezing/shortness of breath. atorvastatin (LIPITOR) 40 mg tablet Take 1 tablet by mouth daily at bedtime. For cholesterol. busPIRone (BUSPAR) 10 mg tablet Take 1 tablet by mouth two times a day. OXYGEN, HOME THERAPY, Inhale 3 L/min as instructed as directed. 3L NC continuous, up to 4L with exertion acetaminophen (TYLENOL) 325 mg tablet Take 650 mg by mouth every 6 hours as needed. nitroglycerin sublingual (NITROSTAT) 0.4 mg SL tablet Dissolve 0.4 mg under the tongue every 5 minutes as needed for chest pain. polyethylene glycol 3350 (MIRALAX) 17 gram/dose powder Take 17 g by mouth as needed for constipation. Dissolve dose in 4 - 8 ounces of liquid and take as directed. ipratropium-albuterol (DUONEB) 0.5 mg-3 mg(2.5 mg base)/3 mL nebu Inhale 3 mL as instructed every 4 hours as needed for wheezing/shortness of breath. predniSONE (DELTASONE) 10 mg tablet TAKE BY MOUTH 4 TABLETS DAILY FOR 2 DAYS, THEN 3 TABLETS DAILY FOR 2 DAYS, THEN 2 TABLETS DAILY FOR 2 DAYS, THEN 1 TABLET DAILY FOR 2 DAYS. No current facility-administered medications for this visit. Objective BP 120/64 (BP Site: Right Arm, BP Position: Sitting, BP Cuff Size: Large Adult) Pulse 80 Wt 62 kg (136 lb 11 oz) SpO2 98% BMI 23.83 kg/m? Physical Exam Constitutional: General: She is not in acute distress. Comments: On O2, wheelchair bound. Cardiovascular: Rate and Rhythm: Normal rate and regular rhythm. Heart sounds: No murmur heard. No gallop. Pulmonary: Breath sounds: Decreased breath sounds and rhonchi present. No wheezing or rales. Musculoskeletal: Right lower leg: No edema. Left lower leg: No edema. Neurological: Mental Status: She is alert. Assessment and Plan 1. Primar (more content not included)...[facility]05-[facility] History of Present illness Narrative* Julio Draper MD - 11/13/2024 10:45 AM EDT This note was created using NoteWriter. Subjective Sneha Cardenas is a 69 year old female here with Cash. She was in the ER 2 weeks ago for chest pain. She was not admitted, and advised [facility] with [facility]. She was seen by her telecommunicator 11/01/24 and Holter monitor for .paroxysmal atrial fibrillation was ordered. She was scheduled to see pulmonary here tomorrow. COPD has been relatively stable. She requested prednisone to have on hand. Review of Systems Constitutional: Negative for chills and fever. Respiratory: Positive for cough and shortness of breath. Cardiovascular: Negative for chest pain, palpitations and leg swelling. Neurological: Negative. ACTIVE PROBLEM LIST Essential Tremor Environmental Allergies Chronic Obstructive Pulmonary Disease (Hcc) Primary Hypertension Hyperlipidemia Age-Related Osteoporosis Without Current Pathological Fracture Lung Nodule Chronic Respiratory Failure With Hypoxia (Hcc) Duodenal Ulcer Paroxysmal Atrial Fibrillation (Hcc) Anemia Requiring Transfusions Dysphagia Former Smoker Nstemi (Non-St Elevated Myocardial Infarction) (Hcc) Pleural Effusion Malnutrition of Mild Degree (Hcc) Esrd (End Stage Renal Disease) (Hcc) Coronary Artery Disease Anxiety About Health Social History Tobacco Use Smoking status: Former Current packs/day: 0.00 Average packs/day: 0.5 packs/day for 42.0 years (21.0 ttl pk-yrs) Types: Cigarettes Start date: 1974 Quit date: 05/23/2016 Years since quittin.4 Smokeless tobacco: Never Tobacco comments: Resumed short period. Quit for good 05/2016. Vaping Use Vaping status: Never Used Substance Use Topics Alcohol use: No Drug use: No Current Outpatient Medications Medication Sig fluticasone (FLONASE) 50 mcg/actuation nasal spray Use 2 sprays in each nostril once daily. Rinse mouth after use. calcium acetate,phosphat bind, (PHOSLO) 667 mg capsule Take 667 mg by mouth three times a day. alendronate (FOSAMAX) 70 mg tablet Take 1 tablet by mouth one time a week. in the AM with glass of water on empty stomach. Do not take anything else by mouth or lie down for 30 min Lactobacillus combination no.8 (ADULT PROBIOTIC ORAL) Take 1 capsule by mouth once daily. kaautjqqpth-krbizcoab-pbmwpggn (TRELEGY ELLIPTA) 200-62.5-25 mcg inhalation powder Inhale 1 Puff asinstructed once daily. ondansetron orally disintegrating (ZOFRAN ODT) 4 mg disintegrating tablet Take 1 tablet by mouth every 8 hours as needed for nausea/vomiting. benzonatate (TESSALON PERLE) 100 mg capsule Take 2 capsules by mouth three times a day as needed for cough. isosorbide mononitrate ER (IMDUR) 60 mg 24 hr tablet Take 1 tablet by mouth once daily. montelukast (SINGULAIR) 10 mg tablet Take 1 tablet by mouth daily at bedtime. sucralfate (CARAFATE) 1 gram tablet Take 1 tablet by mouth two times a day. pantoprazole DR (PROTONIX) 40 mg tablet Take 1 tablet by mouth once daily. albuterol HFA (PROAIR HFA) 90 mcg/actuation inhaler Inhale 2 Puffs as instructed every 4 hours as needed for wheezing/shortness of breath. atorvastatin (LIPITOR) 40 mg tablet Take 1 tablet by mouth daily at bedtime. For cholesterol. busPIRone (BUSPAR) 10 mg tablet Take 1 tablet by mouth two times a day. OXYGEN, HOME THERAPY, Inhale 3 L/min as instructed as directed. 3L NC continuous, up to 4L with exertion acetaminophen (TYLENOL) 325 mg tablet Take 650 mg by mouth every 6 hours as needed. nitroglycerin sublingual (NITROSTAT) 0.4 mg SL tablet Dissolve 0.4 mg under the tongue every 5 minutes as needed for chest pain. polyethylene glycol 3350 (MIRALAX) 17 gram/dose powder Take 17 g by mouth as needed for constipation. Dissolve dose in 4 - 8 ounces of liquid and take as directed. ipratropium-albuterol (DUONEB) 0.5 mg-3 mg(2.5 mg base)/3 mL nebu Inhale 3 mL as instructed every 4hours as needed for wheezing/shortness of breath. predniSONE (DELTASONE) 10 mg tablet TAKE BY MOUTH 4 TABLETS DAILY FOR 2 DAYS, THEN 3 TABLETS DAILY FOR 2 DAYS, THEN 2 TABLETS DAILY FOR 2 DAYS, THEN 1 TABLET DAILY FOR 2 DAYS. No current facility-administered medications for this visit. Objective BP 120/64 (BP Site: Right Arm, BP Position: Sitting, BP Cuff Size: Large Adult) Pulse 80 Wt 62 kg (136 lb 11 oz) SpO2 98% BMI 23.83 kg/m Physical Exam Constitutional: General: She is not in acute distress. Comments: On O2, wheelchair bound. Cardiovascular: Rate and Rhythm: Normal rate and regular rhythm. Heart sounds: No murmur heard. No gallop. Pulmonary: Breath sounds: Decreased breath sounds and rhonchi present. No wheezing or rales. Musculoskeletal: Right lower leg: No edema. Left lower leg: No edema. Neurological: Mental Status: She is alert. Assessment and Plan 1. Primary hypertension - ICD9: 401.9, ICD10: I10 (primary diagnosis) - Controlled - Continue current medications 2. Chronic obstructive pulmonary disease with acute exacerbation (HCC) - ICD9: 491.21, ICD10: J44.1 Refilled. See pulmonary tomorrow. - PREDNISONE 10 MG TABLET 3. Coronary artery disease involving the [place] coronary artery of the [place] heart without angina pectoris- ICD9: 414.01, ICD10: I25.10 - Stable, per [facility]. - LIPID PANEL, FASTING 4. Paroxysmal atrial fibrillation (HCC) - ICD9: 427.31, ICD10: I48.0 - Evaluation ongoing. Schedule Welcome to Medicare visit. Julio Draper MD documented [facility]05[facility] History of Present illness Narrative* Jacinto Blanchard RT(R) - 11/06/2024 10:00 AM EDT Radiology Service Progress Note PATIENT NAME: Sneha Cardenas DATE OF SERVICE: November 06, 2024 TIME: 3:22 PM PATIENT IDENTITY VERIFICATION COMPLETED USING TWO (2) IDENTIFIERS: Name and Date of confirmedby patient verbally. FALL SCREENING: Has the patient had 2 falls in the last year or 1 fall with injury or currently using an Ambulatory Assistive Device (Walker, Cane, Wheelchair, Crutches, etc.)? No PATIENT GENDER DATA: Assigned female at . status: : No status:NO. PATIENT RELEVANT IMPLANT DATA REVIEWED: Yes PATIENT PRESENTS WITH AN IMPLANTABLE OR ATTACHED PENSION ADMINISTRATOR: No RADIOLOGY DEPARTMENT: CT; Exam(s) Completed: Chest PERIPHERAL IV DATA: Not applicable SIGNED BY: RT Burke(R) November 06, 2024 3:22 PM [facility] NoteHNO ID: [id number] Author: JACINTO BLANCHARD RT(R) Service: ? Author Type: Liquor Department Manager Type: Progress Notes Filed: 11/06/2024 15:23 Note Text: Radiology Service Progress Note PATIENT NAME: Sneha Cardenas DATE OF SERVICE: November 06, 2024 TIME: 3:22 PM PATIENT IDENTITY VERIFICATION COMPLETED USING TWO (2) IDENTIFIERS: Name and Date of confirmed by patient verbally. FALL SCREENING: Has the patient had 2 falls in the last year or 1 fall with injury or currently using an Ambulatory Assistive Device (Walker, Cane, Wheelchair, Crutches, etc.)? No PATIENT GENDER DATA: Assigned female at . status: : No status: NO. PATIENT RELEVANT IMPLANT DATA REVIEWED: Yes PATIENT PRESENTS WITH AN IMPLANTABLE OR ATTACHED PENSION ADMINISTRATOR: No RADIOLOGY DEPARTMENT: CT; Exam(s) Completed: Chest PERIPHERAL IV DATA: Not applicable SIGNED BY: RT Burke(R) November 06, 2024 3:22 [facility]05-01-2025 Evaluation note* Diagnosis Onset Date Resolution Status Admit Date Coronary artery disease chronic M ay 2024 11:29am Essential hypertension chronic Ma y 2024 11:29am Hyperlipidemia chronic November 01 11:29am Transient atrial fibrillation resolv ed November 01, 2024 11:29am End-stage renal disease (ESRD) inact spencer November 01, 2024 11:29am Dialysis AV fistula malfunction acut e January 03, 2025 9:29am History of atrial fibrillation acute January 24, 2025 3:27pm Coronary artery disease chronic J cassandra 2024 3:27pm Essential hypertension chronic Ju ly 2024 3:27pm Hyperlipidemia chronic January 24, 2025 3:27pm Transient atrial fibrillation resolv ed January 24, 2025 3:27pm End-stage renal disease (ESRD) inact spencer January 24, 2025 3:27pm [facility] Work Phone: 1([phone] 612-827705-01-2025 Telephone encounter Note* Telephone Encounter - Annette Gonzalez MA - 11/01/2024 9:26 AM EDT Patient phones requesting refills as follows: Requested Prescriptions Pending Prescriptions Disp Refills fluticasone (FLONASE) 50 mcg/actuation nasal spray 1 each 11 Sig: Use 2 sprays in each nostril once daily. Rinse mouth after use. Please review and advise. Annette Gonzalez MA [facility]05-01[facility] Miscellaneous Notes* Telephone Encounter - Annette Gonzalez MA - 11/01/2024 9:26 AM EDT Patient phones requesting refills as follows: Requested Prescriptions Pending Prescriptions Disp Refills fluticasone (FLONASE) 50 mcg/actuation nasal spray 1 each 11 Sig: Use 2 sprays in each nostril once daily. Rinse mouth after use. Please review and advise. Annette Gonzalez MA documented in this encounterP[facility]04-07-[facility]25 History of Present illness Narrative* Alva Baez RT(R) - 10/08/2024 7:20 PM EDT Radiology Service Progress Note PATIENT NAME: Sneha Cardenas DATE OF SERVICE: October 08, 2024 TIME: 7:21 PM PATIENT IDENTITY VERIFICATION COMPLETED USING TWO (2) IDENTIFIERS: Name and Date of confirmedby patient verbally. FALL SCREENING: Has the patient had 2 falls in the last year or 1 fall with injury or currently using an Ambulatory Assistive Device (Walker, Cane, Wheelchair, Crutches, etc.)? Yes, Patient High Riskfor Falls What interventions were put in place to prevent falls during this visit? Offered Assistance with Transfers/Clothing, Instructed Patient to Remain Seated (Not on Exam Table) Until Exam, and did sitting in chair PATIENT GENDER DATA: Assigned female at . status: : No status:NO. PATIENT RELEVANT IMPLANT DATA REVIEWED: Not Applicable PATIENT PRESENTS WITH AN IMPLANTABLE OR ATTACHED PENSION ADMINISTRATOR: No RADIOLOGY DEPARTMENT: General X-ray: Exam(s) Completed: Chest X-Ray PERIPHERAL IV DATA: Not applicable SIGNED BY: RT Randolph(R) October 08, 2024 7:21 PM documented in this encounterPike [facility]04-07-2025 NoteHNO ID: [id number] Author: ALVA BAEZ RT(R) Service: Radiology Author Type: Technologist Type: Progress Notes Filed: 10/08/2024 19:28 Note Text: Radiology Service Progress Note PATIENT NAME: Sneha Cardenas DATE OF SERVICE: October 08, 2024 TIME: 7:21 PM PATIENT IDENTITY VERIFICATION COMPLETED USING TWO [...] place to prevent falls during this visit? Offered Assistance with Transfers/Clothing, Instructed Patient to Remain Seated (Not on Exam Table) Until Exam, and did sitting in chair PATIENT GENDER DATA: Assigned female at . status: : No status: NO. PATIENT RELEVANT IMPLANT DATA REVIEWED: Not Applicable PATIENT PRESENTS WITH AN IMPLANTABLE OR ATTACHED PENSION ADMINISTRATOR: No RADIOLOGY DEPARTMENT: General X-ray: Exam(s) Completed: Chest X-Ray PERIPHERAL IV DATA: Not applicable SIGNED BY: RT Randolph(Everardo) October 08, 2024 7:21 [facility]04-07-2025 Instructions* Patient Instructions* Julio Draper MD - 10/08/2024 7:14 PM EDT We discussed your breathing difficulties and recent symptoms: - You reported increased shortness of breath, chest tightness, and muscle-like chest pain, particularly on Tuesday and Tuesday night. You also mentioned dizziness on Tuesday and mild nausea on Tuesday. - You are currently on 3 liters of oxygen at rest and 4 liters when active, which is unchanged fromyour usual settings. - Your lungs have some crackles on the left side. We discussed your treatment plan: - I prescribed prednisone (20 mg tablets) to help manage your symptoms. You will receive 20 tablets, and this has been sent to your pharmacy. - You should complete a chest x-ray today to evaluate your lungs further. The x- ray can be done downstairs before you leave. - If the x-ray shows any signs of infection or other concerns, I will adjust your antibiotics. You are currently on a Z-Babak (azithromycin) for maintenance, but I may prescribe a different antibiotic if needed. Please monitor your symptoms closely: - If your breathing worsens, your chest pain increases, or you experience any new or concerning symptoms, please contact our office immediately or go to the emergency room. You can view your chest x-ray results on [employer], and I will also review them and follow up with you if further action is needed. documented in this encounterPike [facility]04-07-[facility]25 NoteHNO ID: [id number] Author: JULIO DRAPER MD Service: ? Author Type: Physician Type: Progress Notes Filed: 10/08/2024 19:23 Note Text: This note was created using [employer]. Subjective Patient presents with: Breast Problem The patient consented to the use of ambient [email or web address] software for draft documentation of the visit consistent with [facility]?s Notice of Privacy Practices. Sneha is a 69-year-old female with a history of COPD, presenting with dyspnea and chest tightness. Sneha reports a recent exacerbation of dyspnea and chest tightness. She notes that last week was the best week I had forever, with successful dialysis sessions and good respiratory status, requiring no increase in oxygen flow above 3 L/min to move around the house. She was able to engage in activities such as cleaning and cooking without difficulty. However, on Tuesday, she noticed a decline in her respiratory status, experiencing dyspnea upon standing. This morning, she experienced significant dyspnea when getting up to go to the bathroom and before dialysis. She took a 10 mg tablet of prednisone, which she had remaining from a previous prescription, to manage her symptoms and was able to complete her dialysis session. She reports that the prednisone provided relief. Sneha also reports that last week, a health nurse from the hospital and the nurses at her dialysis center noted improved lung sounds, with airflow present and no diminished breath sounds. However, this morning, the nurses at her dialysis center noted diminished breath sounds and recommended a breathing treatment, which she completed after dialysis. She reports that the breathing treatment provided some relief but exacerbated her tremors, causing shakiness. She denies any current symptoms of illness, such as fever or increased phlegm production, and reports only minimal cough. She does report experiencing dizziness on Tuesday, which she describes as similar to vertigo, and required assistance to the bathroom. She also experienced nausea on Tuesday but reports that her breathing was still manageable. On Tuesday and Tuesday night, she experienced chest pain, which she describes as muscular in nature. Sneha is currently on 3 L/min of oxygen at rest and 4 L/min when ambulating. She reports that last week, she was able to move around the house on 3 L/min without difficulty. She has completed her course of prednisone and has one month and four days remaining on her Z-Babak. She expresses concern about her current symptoms and a desire to avoid hospitalization. Review of Systems Constitutional: (-) fever Cardiovascular: (+) chest pain, (-) palpitations, leg swelling Respiratory: (+) shortness of breath, (+) chest tightness, (-) cough, (-) phlegm Gastrointestinal: (-) for abdominal pain, nausea, vomiting. Neurological: (+) tremors ACTIVE PROBLEM LIST Essential Tremor Environmental Allergies Chronic Obstructive Pulmonary Disease (Hcc) Primary Hypertension Hyperlipidemia Age-Related Osteoporosis Without Current Pathological Fracture Lung Nodule Chronic Respiratory Failure With Hypoxia (Hcc) Duodenal Ulcer Paroxysmal Atrial Fibrillation (Hcc) Anemia Requiring Transfusions Dysphagia Former Smoker Nstemi (Non-St Elevated Myocardial Infarction) (Hcc) Pleural Effusion Malnutrition of Mild Degree (Hcc) Esrd (End Stage Renal Disease) (Hcc) Coronary Artery Disease Anxiety About Health Social History Tobacco Use Smoking status: Former Current packs/day: 0.00 Average packs/day: 0.5 packs/day for 42.0 years (21.0 ttl pk-yrs) Types: Cigarettes Start date: 1974 Quit date: 05/23/2016 Years since quittin.3 Smokeless tobacco: Never Tobacco comments: Resumed short period. Quit for good 05/2016. Vaping Use Vaping status: Never Used Substance Use Topics Alcohol use: No Drug use: No Current Outpatient Medications Medication Sig calcium acetate,phosphat bind, (PHOSLO) 667 mg capsule Take 667 mg by mouth three times a day. alendronate (FOSAMAX) 70 mg tablet Take 1 tablet by mouth one time a week. in the AM with glass of water on empty stomach. Do not take anything else by mouth or lie down for 30 min Lactobacillus combination no.8 (ADULT PROBIOTIC ORAL) Take 1 capsule by mouth once daily. ragpqzztjxc-pybggixdr-iwvapnft (TRELEGY ELLIPTA) 200-62.5-25 mcg inhalation powder Inhale 1 Puff as instructed once daily. ondansetron orally disintegrating (ZOFRAN ODT) 4 mg disintegrating tablet Take 1 tablet by mouth every 8 hours as needed for nausea/vomiting. benzonatate (TESSALON PERLE) 100 mg capsule Take 2 capsules by mouth three times a day as needed for cough. azithromycin (ZITHROMAX) 250 mg tablet Take 1 tablet by mouth once daily. guaiFENesin (ROBITUSSIN) 100 mg/5 mL syrup Take 30 mL by mouth two times a day. isosorbide mononitrate ER (IMDUR) 60 mg 24 hr tablet Take 1 tablet by mouth once d (more content not included)...[facility]04-07-2025 History of Present illness Narrative* Julio Draper MD - 10/08/2024 7:03 PM EDT This note was created using [employer]. Subjective Patient presents with: Breast Problem The patient consented to the use of ambient [email or web address] software for draft documentation of the visit consistent with [facility] Notice of Privacy Practices. Sneha is a 69-year-old female with a history of COPD, presenting with dyspnea and chest tightness. Sneha reports a recent exacerbation of dyspnea and chest tightness. She notes that last week was the best week I had forever, with successful dialysis sessions and good respiratory status, requiring no increase in oxygen flow above 3 L/min to move around the house. She was able to engage in activities such as cleaning and cooking without difficulty. However, on Tuesday, she noticed a decline inher respiratory status, experiencing dyspnea upon standing. This morning, she experienced significant dyspnea when getting up to go to the bathroom and before dialysis. She took a 10 mg tablet of prednisone, which she had remaining from a previous prescription, to manage her symptoms and was able to complete her dialysis session. She reports that the prednisone provided relief. Senha also reports that last week, a health nurse from the hospital and the nurses at her dialysiscenter noted improved lung sounds, with airflow present and no diminished breath sounds. However, this morning, the nurses at her dialysis center noted diminished breath sounds and recommended a breathing treatment, which she completed after dialysis. She reports that the breathing treatment provided some relief but exacerbated her tremors, causing shakiness. She denies any current symptoms of illness, such as fever or increased phlegm production, and reports only minimal cough. She does report experiencing dizziness on Tuesday, which she describes as similar to vertigo, and required assistance to the bathroom. She also experienced nausea on Tuesday butreports that her breathing was still manageable. On Tuesday and Tuesday night, she experienced chest pain, which she describes as muscular in nature. Sneha is currently on 3 L/min of oxygen at rest and 4 L/min when ambulating. She reports that lastweek, she was able to move around the house on 3 L/min without difficulty. She has completed her course of prednisone and has one month and four days remaining on her Z-Babak. She expresses concern about her current symptoms and a desire to avoid hospitalization. Review of Systems Constitutional: (-) fever Cardiovascular: (+) chest pain, (-) palpitations, leg swelling Respiratory: (+) shortness of breath, (+) chest tightness, (-) cough, (-) phlegm Gastrointestinal: (-) for abdominal pain, nausea, vomiting. Neurological: (+) tremors ACTIVE PROBLEM LIST Essential Tremor Environmental Allergies Chronic Obstructive Pulmonary Disease (Hcc) Primary Hypertension Hyperlipidemia Age-Related Osteoporosis Without Current Pathological Fracture Lung Nodule Chronic Respiratory Failure With Hypoxia (Hcc) Duodenal Ulcer Paroxysmal Atrial Fibrillation (Hcc) Anemia Requiring Transfusions Dysphagia Former Smoker Nstemi (Non-St Elevated Myocardial Infarction) (Hcc) Pleural Effusion Malnutrition of Mild Degree (Hcc) Esrd (End Stage Renal Disease) (Hcc) Coronary Artery Disease Anxiety About Health Social History Tobacco Use Smoking status: Former Current packs/day: 0.00 Average packs/day: 0.5 packs/day for 42.0 years (21.0 ttl pk-yrs) Types: Cigarettes Start date: 1974 Quit date: 05/23/2016 Years since quittin.3 Smokeless tobacco: Never Tobacco comments: Resumed short period. Quit for good 05/2016. Vaping Use Vaping status: Never Used Substance Use Topics Alcohol use: No Drug use: No Current Outpatient Medications Medication Sig calcium acetate,phosphat bind, (PHOSLO) 667 mg capsule Take 667 mg by mouth three times a day. alendronate (FOSAMAX) 70 mg tablet Take 1 tablet by mouth one time a week. in the AM with glass of water on empty stomach. Do not take anything else by mouth or lie down for 30 min Lactobacillus combination no.8 (ADULT PROBIOTIC ORAL) Take 1 capsule by mouth once daily. piyghyrvhva-medfnsril-qpityihm (TRELEGY ELLIPTA) 200-62.5-25 mcg inhalation powder Inhale 1 Puff asinstructed once daily. ondansetron orally disintegrating (ZOFRAN ODT) 4 mg disintegrating tablet Take 1 tablet by mouth every 8 hours as needed for nausea/vomiting. benzonatate (TESSALON PERLE) 100 mg capsule Take 2 capsules by mouth three times a day as needed for cough. azithromycin (ZITHROMAX) 250 mg tablet Take 1 tablet by mouth once daily. guaiFENesin (ROBITUSSIN) 100 mg/5 mL syrup Take 30 mL by mouth two times a day. isosorbide mononitrate ER (IMDUR) 60 mg 24 hr tablet Take 1 tablet by mouth once daily. montelukast (SINGULAIR) 10 mg tablet Take 1 tablet by mouth daily at bedtime. sucralfate (CARAFATE) 1 gram tablet Take 1 tablet by mouth two times a day. pantoprazole DR (PROTONIX) 40 mg tablet Take 1 tablet by mouth once daily. albuterol HFA (PROAIR HFA) 90 mcg/actuation inhaler Inhale 2 Puffs as instructed every 4 hours as needed for wheezing/shortness of breath. atorvastatin (LIPITOR) 40 mg tablet Take 1 tablet by mouth daily at bedtime. For cholesterol. busPIRone (BUSPAR) 10 mg tablet Take 1 tablet by mouth two times a day. fluticasone (FLONASE) 50 mcg/actuation nasal spray Use 2 Sprays in each nostril once daily. Rinse mouth after use. OXYGEN, HOME THERAPY, Inhale 3 L/min as instructed as directed. 3L NC continuous, up to 4L with exertion acetaminophen (TYLENOL) 325 mg tablet Take 650 mg by mouth every 6 hours as needed. nitroglycerin sublingual (NITROSTAT) 0.4 mg SL tablet Dissolve 0.4 mg under the tongue every 5 minutes as needed for chest pain. polyethylene glycol 3350 (MIRALAX) 17 gram/dose powder Take 17 g by mouth as needed for constipation. Dissolve dose in 4 - 8 ounces of liquid and take as directed. ipratropium-albuterol (DUONEB) 0.5 mg-3 mg(2.5 mg base)/3 mL nebu Inhale 3 mL as instructed every 4hours as needed for wheezing/shortness of breath. No current facility-administered medications for this visit. Objective BP 118/70 (BP Site: Left Arm, BP Position: Sitting, BP Cuff Size: Large Adult) Pulse 84 Wt 59.5kg (131 lb 2.8 oz) SpO2 97% BMI 22.87 kg/m Physical Exam Constitutional: General: She is not in acute distress. Appearance: She is not ill-appearing or diaphoretic. Comments: Wheelchair bound, on portable oxygen, overall appearance better than from previous visits. HENT: Nose: No congestion or rhinorrhea. Cardiovascular: Rate and Rhythm: Normal rate and regular rhythm. Heart sounds: No murmur heard. No gallop. Pulmonary: Effort: No respiratory distress. Breath sounds: Examination of the left-lower field reveals rales. Rales present. No wheezing. Musculoskeletal: Right lower leg: No edema. Left lower leg: No edema. Neurological: Mental Status: She is alert. Assessment and Plan 1. Chronic obstructive pulmonary disease with acute exacerbation (HCC) - ICD9: 491.21, ICD10: J44.1(primary diagnosis) - Refilled medication. Discussed medication dosage, usage, goals of therapy, and side effects. 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 2. History of pneumonia - ICD9: V12.61, ICD10: Z87.01 - Do chest X-ray today. If +, we will treat for acute pneumonia. Julio Draper MD documented in this encounterP[facility]04-07-[facility]25 Telephone encounter Note * Telephone Encounter - Sarah Peña RN - 10/08/2024 2:28 PM EDT Pt calling in as she has a hx of COPD and RSV. Pt states Dr. Draper put her on antibiotics for 3months and she had been on Prednisone. Pt has been doing well but today has noticed some increase in her SOB. States she took a 10 mg of Prednisone but that was her last one. She takes them as needed. She had dialysis today and the nurse told her that her lung sounds were diminished. Current pulse is 90 and pulse ox is 97%. Pt is wondering about more Prednisone. Pt booked for an appt with Dr. Draper at 6 pm this evening. [facility]04-[facility] Miscellaneous Notes* Telephone Encounter - Sarah Peña RN - 10/08/2024 2:28 PM EDT Pt calling in as she has a hx of COPD and RSV. Pt states Dr. Draper put her on antibiotics for 3months and she had been on Prednisone. Pt has been doing well but today has noticed some increase in her SOB. States she took a 10 mg of Prednisone but that was her last one. She takes them as needed. She had dialysis today and the nurse told her that her lung sounds were diminished. Current pulse is 90 and pulse ox is 97%. Pt is wondering about more Prednisone. Pt booked for an appt with Dr. Draper at 6 pm this evening. documented in this encounterP[facility]03-[facility]25 Telephone encounter Note * Telephone Encounter - Le Aponte RN - 09/26/2024 3:23 PM EDT Nelson, Nurse with [facility] calling and states patient will be seen one time next week and then will bedischarged from services. No call back needed. Le Aponte RN [facility]03-26-[facility] Miscellaneous Notes* Telephone Encounter - Le Aponte RN - 09/26/2024 3:23 PM EDT Nelson, Nurse with [facility] calling and states patient will be seen one time next week and then will bedischarged from services. No call back needed. Le Aponte RN documented in this encounterPike [facility]03-25-2025 Telephone encounter Note * Telephone Encounter - Ericka Christopher LPN - 09/25/2024 12:40 PM EDT These will be in medical records today by 1 pm. Pt notified. Did also copy form completed for pts records here. [facility]03-[facility] Miscellaneous Notes* Telephone Encounter - Ericka Christopher LPN - 09/25/2024 12:40 PM EDT These will be in medical records today by 1 pm. Pt notified. Did also copy form completed for pts records here. * Telephone Encounter - Carol Sosa RN - 09/25/2024 12:09 PM EDT Patient calls back and reports she doesn't have a fax number so she will have to pick forms up in medical records so that she can mail forms overnight so they receive them by October 02, 2024. Please call patient at [phone] when patient can pick forms/papers up. Carol Sosa RN * Telephone Encounter - Ericka Christopher LPN - 09/25/2024 11:14 AM EDT Pcp has completed this form. There is no fax number on it. They want 6 months of office notes. Pt notified. She will call them and get a fax number for the office to fax back to. She will call back with this info. * Telephone Encounter - Ericka Christopher LPN - 09/20/2024 12:00 PM EDT Pt brought in disability forms for pcp to complete. They have been completed before. It is requested to be done again due by 10/02/24. To pcp to review. Did print last ones that were completed. documented in this encounterP[facility]03-[facility]25 Telephone encounter Note * Telephone Encounter - Carol Sosa RN - 09/25/2024 12:09 PM EDT Patient calls back and reports she doesn't have a fax number so she will have to pick forms up in medical records so that she can mail forms overnight so they receive them by October 02, 2024. Please call patient at [phone] when patient can pick forms/papers up. Carol Sosa RN [facility]03-25-[facility]25 Telephone encounter Note* Telephone Encounter - Ericka Christopher LPN - 09/25/2024 11:14 AM EDT Pcp has completed this form. There is no fax number on it. They want 6 months of office notes. Pt notified. She will call them and get a fax number for the office to fax back to. She will call back with this info. [facility]03-24-[facility]25 Telephone encounter Note* Telephone Encounter - Magali Casey MA - 09/24/2024 9:24 AM EDT Patient was notified and will call to get balance paid Magali Casey MA [facility]03-24-2025 Miscellaneous Notes* Telephone Encounter - Magali Casey MA - 09/24/2024 9:24 AM EDT Patient was notified and will call to get balance paid Magali Casey MA * Telephone Encounter - Genna Lowry RN - 09/24/2024 8:28 AM EDT Nathaly from [facility] calls and reports that they received referral for patient. Nathaly reports that they are unable to see patient because patient currently is in collections with them. Patient will have to be referral to someone else. Genna Lowry RN documented in this encounterPike [facility] Hospital03-24-2025 Telephone encounter Note * Telephone Encounter - Genna Lowry RN - 09/24/2024 8:28 AM EDT Nathaly from [facility] calls and reports that they received referral for patient. Nathaly reports that they are unable to see patient because patient currently is in collections with them. Patient will have to be referral to someone else. Genna Lowry RN [facility]03-20-2025 Telephone encounter Note* Telephone Encounter - Ericka Christopher LPN - 09/20/2024 12:00 PM EDT Pt brought in disability forms for pcp to complete. They have been completed before. It is requested to be done again due by 10/02/24. To pcp to review. Did print last ones that were completed. [facility]03-19-2025 NoteHNO ID: [id number] Author: JULIO DRAPER MD Service: ? Author Type: Physician Type: Progress Notes Filed: 09/20/2024 07:03 Note Text: This note was created using [employer]. Subjective Patient presents with: ER F/U Sneha Cardenas is a 69 year old female, who developed right shoulder pain, severe 3 days ago after dialysis. Pain was aggravated by movement, and local pressure. She had no shoulder injury or strain. She went to the ER 09/17/24 where her shoulder xray showed intact hardware with no acute disease. She was prescribed tramadol with little relief. She just completed an extended steroid taper more than 1 week ago. She also had her dialysis catheter removed earlier this month, and has a vascular surgery follow up tomorrow. Review of Systems Constitutional: Negative for chills and fever. Respiratory: Negative for cough and chest tightness. Cardiovascular: Negative for chest pain and palpitations. Gastrointestinal: Negative for nausea and vomiting. Musculoskeletal: Negative for neck pain and neck stiffness. Neurological: Negative for weakness, numbness and headaches. ACTIVE PROBLEM LIST Essential Tremor Environmental Allergies Chronic Obstructive Pulmonary Disease (Hcc) Primary Hypertension Hyperlipidemia Age-Related Osteoporosis Without Current Pathological Fracture Lung Nodule Chronic Respiratory Failure With Hypoxia (Hcc) Duodenal Ulcer Paroxysmal Atrial Fibrillation (Hcc) Anemia Requiring Transfusions Dysphagia Former Smoker Nstemi (Non-St Elevated Myocardial Infarction) (Hcc) Pleural Effusion Malnutrition of Mild Degree (Hcc) Esrd (End Stage Renal Disease) (Hcc) Coronary Artery Disease Anxiety About Health Social History Tobacco Use Smoking status: Former Current packs/day: 0.00 Average packs/day: 0.5 packs/day for 42.0 years (21.0 ttl pk-yrs) Types: Cigarettes Start date: 1974 Quit date: 05/23/2016 Years since quittin.3 Smokeless tobacco: Never Tobacco comments: Resumed short period. Quit for good 05/2016. Vaping Use Vaping status: Never Used Substance Use Topics Alcohol use: No Drug use: No Current Outpatient Medications Medication Sig alendronate (FOSAMAX) 70 mg tablet Take 1 tablet by mouth one time a week. in the AM with glass of water on empty stomach. Do not take anything else by mouth or lie down for 30 min Lactobacillus combination no.8 (ADULT PROBIOTIC ORAL) Take 1 capsule by mouth once daily. wgutdxftzsv-gvkqcmmsu-qgteyniz (TRELEGY ELLIPTA) 200-62.5-25 mcg inhalation powder Inhale 1 Puff as instructed once daily. ondansetron orally disintegrating (ZOFRAN ODT) 4 mg disintegrating tablet Take 1 tablet by mouth every 8 hours as needed for nausea/vomiting. benzonatate (TESSALON PERLE) 100 mg capsule Take 2 capsules by mouth three times a day as needed for cough. azithromycin (ZITHROMAX) 250 mg tablet Take 1 tablet by mouth once daily. guaiFENesin (ROBITUSSIN) 100 mg/5 mL syrup Take 30 mL by mouth two times a day. isosorbide mononitrate ER (IMDUR) 60 mg 24 hr tablet Take 1 tablet by mouth once daily. montelukast (SINGULAIR) 10 mg tablet Take 1 tablet by mouth daily at bedtime. sucralfate (CARAFATE) 1 gram tablet Take 1 tablet by mouth two times a day. pantoprazole DR (PROTONIX) 40 mg tablet Take 1 tablet by mouth once daily. albuterol HFA (PROAIR HFA) 90 mcg/actuation inhaler Inhale 2 Puffs as instructed every 4 hours as needed for wheezing/shortness of breath. atorvastatin (LIPITOR) 40 mg tablet Take 1 tablet by mouth daily at bedtime. For cholesterol. busPIRone (BUSPAR) 10 mg tablet Take 1 tablet by mouth two times a day. fluticasone (FLONASE) 50 mcg/actuation nasal spray Use 2 Sprays in each nostril once daily. Rinse mouth after use. OXYGEN, HOME THERAPY, Inhale 3 L/min as instructed as directed. 3L NC continuous, up to 4L with exertion acetaminophen (TYLENOL) 325 mg tablet Take 650 mg by mouth every 6 hours as needed. nitroglycerin sublingual (NITROSTAT) 0.4 mg SL tablet Dissolve 0.4 mg under the tongue every 5 minutes as needed for chest pain. polyethylene glycol 3350 (MIRALAX) 17 gram/dose powder Take 17 g by mouth as needed for constipation. Dissolve dose in 4 - 8 ounces of liquid and take as directed. ipratropium-albuterol (DUONEB) 0.5 mg-3 mg(2.5 mg base)/3 mL nebu Inhale 3 mL as instructed every 4 hours as needed for wheezing/shortness of breath. No current facility-administered medications for this visit. Objective BP 110/58 (BP Site: Right Arm, BP Position: Sitting, BP Cuff Size: Large Adult) Pulse 100 Temp 36.4 ?C (97.6 ?F) (Temporal) Wt 59 kg (130 lb) BMI 22.66 kg/m? Physical Exam Constitutional: General: She is not in acute distress. Appearance: She is not diaphoretic. Cardiovascular: Rate and Rhythm: Regular rhythm. Tachycardia present. Pulses: Normal pulses. Pulmonary: Effort: No respiratory distress. Breath sounds: No wheezing (more content not included)...[facility]03-19-2025 History of Present illness Narrative* Julio Draper MD - 09/19/2024 4:46 PM EDT This note was created using [employer]. Subjective Patient presents with: ER F/U Sneha Cardenas is a 69 year old female, who developed right shoulder pain, severe 3 days ago after dialysis. Pain was aggravated by movement, and local pressure. She had no shoulder injury or strain. She went to the ER 09/17/24 where her shoulder xray showed intact hardware with no acute disease. She was prescribed tramadol with little relief. She just completed an extended steroid taper more than 1 week ago. She also had her dialysis catheter removed earlier this month, and has a vascular surgery follow up tomorrow. Review of Systems Constitutional: Negative for chills and fever. Respiratory: Negative for cough and chest tightness. Cardiovascular: Negative for chest pain and palpitations. Gastrointestinal: Negative for nausea and vomiting. Musculoskeletal: Negative for neck pain and neck stiffness. Neurological: Negative for weakness, numbness and headaches. ACTIVE PROBLEM LIST Essential Tremor Environmental Allergies Chronic Obstructive Pulmonary Disease (Hcc) Primary Hypertension Hyperlipidemia Age-Related Osteoporosis Without Current Pathological Fracture Lung Nodule Chronic Respiratory Failure With Hypoxia (Hcc) Duodenal Ulcer Paroxysmal Atrial Fibrillation (Hcc) Anemia Requiring Transfusions Dysphagia Former Smoker Nstemi (Non-St Elevated Myocardial Infarction) (Hcc) Pleural Effusion Malnutrition of Mild Degree (Hcc) Esrd (End Stage Renal Disease) (Hcc) Coronary Artery Disease Anxiety About Health Social History Tobacco Use Smoking status: Former Current packs/day: 0.00 Average packs/day: 0.5 packs/day for 42.0 years (21.0 ttl pk-yrs) Types: Cigarettes Start date: 1974 Quit date: 05/23/2016 Years since quittin.3 Smokeless tobacco: Never Tobacco comments: Resumed short period. Quit for good 05/2016. Vaping Use Vaping status: Never Used Substance Use Topics Alcohol use: No Drug use: No Current Outpatient Medications Medication Sig alendronate (FOSAMAX) 70 mg tablet Take 1 tablet by mouth one time a week. in the AM with glass of water on empty stomach. Do not take anything else by mouth or lie down for 30 min Lactobacillus combination no.8 (ADULT PROBIOTIC ORAL) Take 1 capsule by mouth once daily. zjnwdrxuatz-gfcnvfqfn-gmggpsyz (TRELEGY ELLIPTA) 200-62.5-25 mcg inhalation powder Inhale 1 Puff asinstructed once daily. ondansetron orally disintegrating (ZOFRAN ODT) 4 mg disintegrating tablet Take 1 tablet by mouth every 8 hours as needed for nausea/vomiting. benzonatate (TESSALON PERLE) 100 mg capsule Take 2 capsules by mouth three times a day as needed for cough. azithromycin (ZITHROMAX) 250 mg tablet Take 1 tablet by mouth once daily. guaiFENesin (ROBITUSSIN) 100 mg/5 mL syrup Take 30 mL by mouth two times a day. isosorbide mononitrate ER (IMDUR) 60 mg 24 hr tablet Take 1 tablet by mouth once daily. montelukast (SINGULAIR) 10 mg tablet Take 1 tablet by mouth daily at bedtime. sucralfate (CARAFATE) 1 gram tablet Take 1 tablet by mouth two times a day. pantoprazole DR (PROTONIX) 40 mg tablet Take 1 tablet by mouth once daily. albuterol HFA (PROAIR HFA) 90 mcg/actuation inhaler Inhale 2 Puffs as instructed every 4 hours as needed for wheezing/shortness of breath. atorvastatin (LIPITOR) 40 mg tablet Take 1 tablet by mouth daily at bedtime. For cholesterol. busPIRone (BUSPAR) 10 mg tablet Take 1 tablet by mouth two times a day. fluticasone (FLONASE) 50 mcg/actuation nasal spray Use 2 Sprays in each nostril once daily. Rinse mouth after use. OXYGEN, HOME THERAPY, Inhale 3 L/min as instructed as directed. 3L NC continuous, up to 4L with exertion acetaminophen (TYLENOL) 325 mg tablet Take 650 mg by mouth every 6 hours as needed. nitroglycerin sublingual (NITROSTAT) 0.4 mg SL tablet Dissolve 0.4 mg under the tongue every 5 minutes as needed for chest pain. polyethylene glycol 3350 (MIRALAX) 17 gram/dose powder Take 17 g by mouth as needed for constipation. Dissolve dose in 4 - 8 ounces of liquid and take as directed. ipratropium-albuterol (DUONEB) 0.5 mg-3 mg(2.5 mg base)/3 mL nebu Inhale 3 mL as instructed every 4hours as needed for wheezing/shortness of breath. No current facility-administered medications for this visit. Objective BP 110/58 (BP Site: Right Arm, BP Position: Sitting, BP Cuff Size: Large Adult) Pulse 100 Temp 36.4 C (97.6 F) (Temporal) Wt 59 kg (130 lb) BMI 22.66 kg/m Physical Exam Constitutional: General: She is not in acute distress. Appearance: She is not diaphoretic. Cardiovascular: Rate and Rhythm: Regular rhythm. Tachycardia present. Pulses: Normal pulses. Pulmonary: Effort: No respiratory distress. Breath sounds: No wheezing or rhonchi. Chest: Comments: Dialysis catheter previous site right upper chest clean and dry. Musculoskeletal: Right shoulder: Swelling and tenderness present. No deformity, effusion or crepitus. Decreased range of motion. Normal strength. Normal pulse. Left shoulder: Normal. Right upper arm: Swelling present. No tenderness. Right elbow: Normal. No swelling. Right forearm: No edema. Right hand: No swelling. Normal strength. Normal sensation. Cervical back: Neck supple. No tenderness. Skin: Findings: No erythema or rash. Neurological: Mental Status: She is alert. Assessment and Plan 1. Acute pain of right shoulder - ICD9: 719.41, ICD10: M25.511 (primary diagnosis) Etiology not clear. Shared decision was made. We agreed to try a short steroid course for inflammation. Agate risks reviewed. - COMPLETE BLOOD COUNT - SEDIMENTATION RATE, WESTERGREN - D-DIMER - HYDROCODONE 5 MG-ACETAMINOPHEN 325 MG TABLET - CONSULT TO ORTHOPAEDICS - PREDNISONE 20 MG TABLET 2. Chronic obstructive pulmonary disease with acute exacerbation (HCC) - ICD9: 491.21, ICD10: J44.1 - Stable. Julio Draper MD [facility] Radiology Diagnostic study [facility]03-17-2025 Telephone encounter Note* Telephone Encounter - Le Aponte RN - 09/17/2024 4:08 PM EDT Triage Protocol Advised; ER now. Pt agreeable.. Reason for Disposition [1] Age > 40 AND [2] no obvious cause AND [3] pain even when not moving the arm (Exception: Painis clearly made worse by moving arm or bending neck.) Answer Assessment - Initial Assessment Questions Patient calling with concern for severe right shoulder pain, anterior and posterior. Reports the pain as constant and stabbing. Began approx 2 days ago as an ache and has intensified. Now 9 out of 10pain. Was 12 out of 10 earlier. Denies injury. Her reports she has about a 4 inch knot tothe back of her shoulder. Reports had dialysis earlier today. Reports BP was low at dialysis today. Dialysis fistula in left arm. Reports her smart watch indicates an irregular heart rhythm; patient has h/o A-Fib, has not seen cardiology in recent past. Reports some intermittent nausea today. States she does get SOB at times. Pt history includes HTN, hyperlipidemia, A-fib, NSTEMI, CAD, COPD. 1. ONSET: About 2 days ago. Began as an ache. 2. LOCATION: right shoulder area 3. PAIN: 9 out of 10, was 12 out of 10 earlier 4. WORK OR EXERCISE: Denies recent work or exercise that involved this part of the body 5. CAUSE: Denies injury 6. OTHER SYMPTOMS: as above 7. : no Protocols used: Shoulder [id number] [facility]03-17-2025 Miscellaneous Notes* Telephone Encounter - Le Aponte RN - 09/17/2024 4:08 PM EDT Triage Protocol Advised; ER now. Pt agreeable.. Reason for Disposition [1] Age > 40 AND [2] no obvious cause AND [3] pain even when not moving the arm (Exception: Painis clearly made worse by moving arm or bending neck.) Answer Assessment - Initial Assessment Questions Patient calling with concern for severe right shoulder pain, anterior and posterior. Reports the pain as constant and stabbing. Began approx 2 days ago as an ache and has intensified. Now 9 out of 10pain. Was 12 out of 10 earlier. Denies injury. Her reports she has about a 4 inch knot tothe back of her shoulder. Reports had dialysis earlier today. Reports BP was low at dialysis today. Dialysis fistula in left arm. Reports her smart watch indicates an irregular heart rhythm; patient has h/o A-Fib, has not seen cardiology in recent past. Reports some intermittent nausea today. States she does get SOB at times. Pt history includes HTN, hyperlipidemia, A-fib, NSTEMI, CAD, COPD. 1. ONSET: About 2 days ago. Began as an ache. 2. LOCATION: right shoulder area 3. PAIN: 9 out of 10, was 12 out of 10 earlier 4. WORK OR EXERCISE: Denies recent work or exercise that involved this part of the body 5. CAUSE: Denies injury 6. OTHER SYMPTOMS: as above 7. : no Protocols used: Shoulder [id number] documented in this encounterP[facility]03[facility] Telephone encounter Note * Telephone Encounter - Carol Sosa RN - 09/07/2024 2:47 PM EST Rihci PT with [facility] calls to let provider know that patient had dialysis fistula replaced and requested to move PT eval visit to next Tuesday09/11/2024. Ok given per patient request. Nothing further needed closing encounter. Carol Sosa RN [facility]03-07-2025 Telephone encounter Note* Telephone Encounter - Lorna Angel RN - 09/07/2024 2:47 PM EST Nelson with [facility] is calling to information pcp that they have re certified patient with group home for once weekly visits for the next 3 weeks and then they will re-evaluate. [facility]03-07-2025 Miscellaneous Notes* Telephone Encounter - Carol Sosa RN - 09/07/2024 2:47 PM EST Richi PT with [facility] calls to let provider know that patient had dialysis fistula replaced and requested to move PT eval visit to next Tuesday09/11/2024. Ok given per patient request. Nothing further needed closing encounter. Carol Sosa RN documented in [facility]03[facility]25 Miscellaneous Notes* Telephone Encounter - Lorna Angel RN - 09/07/2024 2:47 PM EST Nelson with [facility] is calling to information pcp that they have re certified patient with group home for once weekly visits for the next 3 weeks and then they will re-evaluate. documented in [facility] Evaluation note* Diagnosis Onset Date Resolution Status Admit Date ESRD (end stage renal disease) on dialysis acute September 06, 2024 7:01am AVF (arteriovenous fistula) March 13, 2024 acute September 20, 2024 10:22am ESRD (end stage renal disease) on dialysis acute September 20, 2024 10:22am Coronary artery disease chronic M ay 2024 11:29am Essential hypertension chronic Ma y 2024 11:29am Hyperlipidemia chronic November 01, 2 025 11:29am Transient atrial fibrillation resolved November 01, 2024 11:29am End-stage renal disease (ESRD) inactive November 01, 2024 11:29am Dialysis AV fistula malfunction acute January 03, 2025 9:29am [facility] Work Phone: [phone]) 916-417203-06-2025 [facility]03-04-2025 NoteHNO ID: [id number] Author: SHAINA NEW MA Service: ? Author Type: Tube Teller Type: Progress Notes Filed: 09/04/2024 16:07 Note Text: Patient presents with: COPD AMB ROOMING INTAKE FLOWSHEET DATA Patient states she is continuing to be on oxygen most of the time. She has been on Prednisone and Z-babak given by Dr. Draper after she got home from the hospital. She has 1 week left of the prednisone to take.[facility]03-04-2025 History of Present illness Narrative* Shaina New MA - 09/04/2024 1:06 PM EST Patient presents with: COPD AMB ROOMING INTAKE FLOWSHEET DATA Patient states she is continuing to be on oxygen most of the time. She has been on Prednisone and Z-babak given by Dr. Draper after she got home from the hospital. She has 1 week left of the prednisone to take. * Jean-Pierre Vitale APRN.[facility] - 09/04/2024 1:00 PM EST Images from the original note were not included. Pulmonary Medicine Patients name: Sneha Cardenas PCP: Julio Draper MD CC: follow-up HPI: Sneha Cardenas is a 69 year old female former 20 pack year smoker with PMH significant for tremors, HTN, COVID PNA 2020, chronic hypoxemic respiratory failure, AF (not anticoagulated due to GIB), severe COPD/emphysema, multiple nodules on chest imaging and 2 cm RUL GGO, history notable for complicated parapneumonic effusion requiring chest tube, ESRD requiring dialysis. Current therapy with Trelegy Ellipta and PRN Albuterol. She presents today for follow-up. RONALD 06/07/2024 for follow-up imaging which shows a GCO that is highly suspicious for adenocarcinoma.Has follow-up CT scheduled in November. Since her last visit, she has had multiple hospital admissions related to breathing issues. - 07/08 for RSV and Pneumonia - 07/23 for sepsis and hypoxic respiratory failure - 08/06-08/10 for COPD exacerbation, rt pleural effusion, RSV. Treated with Doxycycline and Prednisone taper. Started on prophylactic Azithromycin by PCP. Feels like this has helped overall with symptoms. She also still has one more week of her Prednisone taper. Today, she reports overall weakness and fatigue. Respiratory symptoms have made good improvement. Patient denies cough. No wheezing. No dyspnea at rest. Exertional dyspnea with minimal exertion (walking 20 feet at times). Per her , she doesn't have much stamina d/t multiple hospitalizations. She has lost 20 lbs with being in the hospital. Reports normal appetite at this time. PRN treatments once a week. DME: [employer] 3L at rest and nocturnal 4L with exertion PAST MEDICAL HISTORY Diagnosis Date Age-related osteoporosis without current pathological fracture 08/28/2021 EARNEST (acute kidney injury) ([facility]) EARNEST (acute kidney injury) ([facility]) Anemia requiring transfusions 06/15/2023 Antibiotic-associated diarrhea 07/14/2023 Asthma Benign essential tremor Chronic obstructive pulmonary disease ([facility]) 07/25/2012 Chronic respiratory failure with hypoxia ([facility]) 11/05/2022 Coagulation defect, unspecified ([facility]) 08/25/2023 COPD (chronic obstructive pulmonary disease) ([facility]) 07/25/2012 FEV1 0.84L (32%), 10/18/2014 Coronary artery disease 08/19/2023 DDD (degenerative disc disease), cervical 08/15/2015 Empyema ([facility]) 07/09/2023 Environmental allergies Wheezes with hay or dust ESRD (end stage renal disease) ([facility]) Essential and other specified forms of tremor 11/02/2007 Benign essential -- started primidone 06/03/09, Dr. Nguyễn Essential tremor 11/02/2007 Benign essential -- started primidone 06/03/09, Dr. Nguyễn Gastrointestinal hemorrhage associated with peptic ulcer 08/02/2023 Hemodialysis catheter malfunction ([facility]) 08/19/2023 History of colon polyps 2009 Tubular adenoma. Hypertension Hypoxemia 05/01/2021 Post Covid pneumonia. Irritable bowel syndrome Lung nodule Migraine headache Improved with primidone Multiple duodenal ulcers 06/30/2023 NSTEMI (non-ST elevated myocardial infarction) ([facility]) 07/20/2023 Parapneumonic effusion Pneumonia due to COVID-19 virus 05/01/2021 Pneumonia due to infectious organism 06/30/2023 Pulmonary emphysema ([facility]) 07/19/2023 Scoliosis Shock, septic ([facility]) 07/11/2023 Snoring Tobacco use disorder Quit 03/04/2015. Unspecified gastritis and gastroduodenitis without mention of hemorrhage 02/09/2010 Small ulcer on EGD 2009 Upper GI bleed 02/09/2010 Allergies: Keflex [Cephalexin] Intolerance Comment:Tachycardia, palpitations. Vancomycin Hives Medication List Accurate as of September 04, 2024 8:19 AM. If you have any questions, ask your nurse or doctor. CONTINUE taking these medications acetaminophen 325 mg tablet Commonly known as: TYLENOL albuterol HFA 90 mcg/actuation inhaler Commonly known as: PROAIR HFA Inhale 2 Puffs as instructed every 4 hours as needed for wheezing/shortness of breath. atorvastatin 40 mg tablet Commonly known as: LIPITOR Take 1 tablet by mouth daily at bedtime. For cholesterol. azithromycin 250 mg tablet Commonly known as: ZITHROMAX Take 1 tablet by mouth once daily. benzonatate 100 mg capsule Commonly known as: TESSALON PERLE Take 2 capsules by mouth three times a day as needed for cough. busPIRone 10 mg tablet Commonly known as: BUSPAR Take 1 tablet by mouth two times a day. fluticasone 50 mcg/actuation nasal spray Commonly known as: FLONASE Use 2 Sprays in each nostril once daily. Rinse mouth after use. guaiFENesin 100 mg/5 mL syrup Commonly known as: ROBITUSSIN Take 30 mL by mouth two times a day. ipratropium-albuterol 0.5 mg-3 mg(2.5 mg base)/3 mL Nebu Commonly known as: DUONEB Inhale 3 mL as instructed every 4 hours as needed for wheezing/shortness of breath. isosorbide mononitrate ER 60 mg 24 hr tablet Commonly known as: IMDUR Take 1 tablet by mouth once daily. MIRALAX 17 gram/dose powder Generic drug: polyethylene glycol 3350 montelukast 10 mg tablet Commonly known as: SINGULAIR Take 1 tablet by mouth daily at bedtime. NITROSTAT 0.4 mg SL tablet Generic drug: nitroglycerin sublingual ondansetron orally disintegrating 4 mg disintegrating tablet Commonly known as: ZOFRAN ODT Take 1 tablet by mouth every 8 hours as needed for nausea/vomiting. OXYGEN (HOME THERAPY) pantoprazole DR 40 mg tablet Commonly known as: PROTONIX Take 1 tablet by mouth once daily. predniSONE 10 mg tablet Commonly known as: DELTASONE sucralfate 1 gram tablet Commonly known as: CARAFATE Take 1 tablet by mouth two times a day. DATA: I personally reviewed and analyzed all labs, radiographs and available pulmonary function testing PFT: 2020 Spirometry indicates severe obstruction. Oximetry with ambulation 01/2022 CT Chest: 05/2024 IMPRESSION: Stable pulmonary nodules and groundglass opacities. No new mass or adenopathy Continued follow-up in 6 months recommended. Director Of Vocational Training: ROBERTS CHAPELPaz Transcribe Date/Time: May 16 2024 2:04P Dictated by : LU JAMESON MD This examination was interpreted and the report reviewed and electronically signed by: LU JAMESON MD on May 16 2024 2:17PM EST Results-Findings * * *Final Report* * * DATE OF EXAM: May 10 2024 1:23PM [facility] [id number] - CT CHEST WO IVCON / PROCEDURE REASON: Lung nodules * * * * Physician Interpretation * * * * EXAMINATION: CHEST CT WITHOUT CONTRAST CLINICAL HISTORY: Lung nodules Technique: Spiral CT acquisition of the chest from the thoracic inlet to the upper abdomen without contrast. MQ: [id number] CT Radiation dose: Integrated Dose-length product (DLP) for this visit = 237 mGy*cm CT Dose Reduction Employed: Automated exposure control(AEC) and iterative recon Comparison: 11/03/2023 and 05/25/2023 CT RESULT: Limitations: None. Lines, tubes, and devices: Central venous catheter in place. Lung parenchyma and airways: Linear indeterminate density at both lung bases is likely atelectasis or fibrosis. Right lung groundglass opacity of 2.1 x 1.2 cm on image 108 is stable. 0.8 cm nodule within the right lung on image 43 is stable. Left lung subpleural nodule of 0.7 cm on image 36 is stable Stable 5 mm left lung nodule on image 57. Stable 4 mm left lower lobe nodule on image 146.. Several calcified granulomata . The central airways are patent. Pleural space: Trace right pleural effusion Lower neck, lymph nodes, and mediastinum: The imaged thyroid gland is normal. No lymphadenopathy in the supraclavicular, axillary, mediastinal, or hilar regions. Heart, pericardium, and thoracic vessels: The thoracic aorta and main pulmonary artery are normal in caliber. The cardiac chambers are normal in size. Mild coronary artery atherosclerotic calcifications are noted, although the study is not optimized for coronary assessment. No pericardial effusion or thickening. Bones and soft tissues: No destructive bone lesion. Chest wall is unremarkable. Upper abdomen: No abnormality in the imaged upper abdomen. Localizer images: No additional findings. Review of Systems Constitutional: Negative for activity change, appetite change and unexpected weight change. HENT: Negative for congestion, mouth sores, postnasal drip and sinus pressure. Respiratory: Positive for shortness of breath. Negative for cough, chest tightness and wheezing. Cardiovascular: Negative for chest pain, palpitations and leg swelling. Neurological: Positive for weakness. Negative for dizziness, light-headedness and headaches. BP 123/67 (BP Site: Right Arm, BP Position: Sitting, BP Cuff Size: Regular Adult) Pulse 96 Wt 58.1 kg (128 lb) SpO2 91% BMI 22.32 kg/m Physical Exam Vitals reviewed. Constitutional: General: She is not in acute distress. Appearance: Normal appearance. She is normal weight. HENT: Head: Normocephalic. Nose: No rhinorrhea. Mouth/Throat: Mouth: Mucous membranes are moist. Pharynx: No oropharyngeal exudate. Cardiovascular: Rate and Rhythm: Normal rate and regular rhythm. Heart sounds: Normal heart sounds. Pulmonary: Effort: Pulmonary effort is normal. No respiratory distress. Breath sounds: No wheezing. Musculoskeletal: Right lower leg: No edema. Left lower leg: No edema. Lymphadenopathy: Cervical: No cervical adenopathy. Skin: General: Skin is warm and dry. Capillary Refill: Capillary refill takes less than 2 seconds. Neurological: General: No focal deficit present. Mental Status: She is alert. ASSESSMENT/PLAN: 1. COPD, severe (HCC) - ICD9: 496, ICD10: J44.9 (primary diagnosis) - multiple hospitalizations in the past few months for exacerbations. - currently reports symptoms improving, continues to have exertional dyspnea with minimal activity. - increase Trelegy dose - continue PRN treatments - Continue Azithromycin prescribed by PCP. 2. Chronic hypoxemic respiratory failure (HCC) - ICD9: 518.83, 799.02, ICD10: J96.11 - continues to be compliant and benefit from supplemental O2 - self monitoring of SPO2 at home. Would like to wean O2 back down to 2L baseline. 3. Ground glass opacity present on imaging of lung - ICD9: 793.19, ICD10: R91.8 - stable Rt lung groundglass opacity 2.1-1.2 cm - follow-up chest CT due in November with follow-up. F/u scheduled in November Portions of this documentation were copied and pasted from previous office visit notes in order to provide a cohesive continuity of the history. The note has been reviewed and edited and updated as necessary. Jean-Pierre Vitale APRN.MARIAN I spent a total of 28 minutes on the date of the service which included preparing to see the patient, avan-br-riyd patient care, completing clinical documentation, performing a medically appropriate examination, counseling and educating the patient/family/caregiver, and ordering medications, tests,or procedures. documented in this [facility]25 NoteHNO ID: [id number] Author: JEAN-PIERRE VITALE APRN.CNP Service: ? Author Type: Nurse Practitioner Type: Progress Notes Filed: 09/04/2024 16:07 Note Text: Pulmonary Medicine Patients name: Sneha Cardenas PCP: Julio Draper MD CC: follow-up HPI: Sneha Cardenas is a 69 year old female former 20 pack year smoker with PMH significant for tremors, HTN, COVID PNA 2020, chronic hypoxemic respiratory failure, AF (not anticoagulated due to GIB), severe COPD/emphysema, multiple nodules on chest imaging and 2 cm RUL GGO, history notable for complicated parapneumonic effusion requiring chest tube, ESRD requiring dialysis. Current therapy with Trelegy Ellipta and PRN Albuterol. She presents today for follow-up. RONALD 06/07/2024 for follow-up imaging which shows a GCO that is highly suspicious for adenocarcinoma. Has follow-up CT scheduled in November. Since her last visit, she has had multiple hospital admissions related to breathing issues. - 07/08 for RSV and Pneumonia - 07/23 for sepsis and hypoxic respiratory failure - 08/06-08/10 for COPD exacerbation, rt pleural effusion, RSV. Treated with Doxycycline and Prednisone taper. Started on prophylactic Azithromycin by PCP. Feels like this has helped overall with symptoms. She also still has one more week of her Prednisone taper. Today, she reports overall weakness and fatigue. Respiratory symptoms have made good improvement. Patient denies cough. No wheezing. No dyspnea at rest. Exertional dyspnea with minimal exertion (walking 20 feet at times). Per her , she doesn't have much stamina d/t multiple hospitalizations. She has lost 20 lbs with being in the hospital. Reports normal appetite at this time. PRN treatments once a week. DME: [employer] 3L at rest and nocturnal 4L with exertion PAST MEDICAL HISTORY Diagnosis Date Age-related osteoporosis without current pathological fracture 08/28/2021 EARNEST (acute kidney injury) ([facility]) EARNEST (acute kidney injury) ([facility]) Anemia requiring transfusions 06/15/2023 Antibiotic-associated diarrhea 07/14/2023 Asthma Benign essential tremor Chronic obstructive pulmonary disease ([facility]) 07/25/2012 Chronic respiratory failure with hypoxia ([facility]) 11/05/2022 Coagulation defect, unspecified ([facility]) 08/25/2023 COPD (chronic obstructive pulmonary disease) ([facility]) 07/25/2012 FEV1 0.84L (32%), 10/18/2014 Coronary artery disease 08/19/2023 DDD (degenerative disc disease), cervical 08/15/2015 Empyema ([facility]) 07/09/2023 Environmental allergies Wheezes with hay or dust ESRD (end stage renal disease) ([facility]) Essential and other specified forms of tremor 11/02/2007 Benign essential -- started primidone 06/03/09, Dr. Nguyễn Essential tremor 11/02/2007 Benign essential -- started primidone 06/03/09, Dr. Nguyễn Gastrointestinal hemorrhage associated with peptic ulcer 08/02/2023 Hemodialysis catheter malfunction ([facility]) 08/19/2023 History of colon polyps 2009 Tubular adenoma. Hypertension Hypoxemia 05/01/2021 Post Covid pneumonia. Irritable bowel syndrome Lung nodule Migraine headache Improved with primidone Multiple duodenal ulcers 06/30/2023 NSTEMI (non-ST elevated myocardial infarction) (HCC) 07/20/2023 Parapneumonic effusion Pneumonia due to COVID-19 virus 05/01/2021 Pneumonia due to infectious organism 06/30/2023 Pulmonary emphysema ([facility]) 07/19/2023 Scoliosis Shock, septic ([facility]) 07/11/2023 Snoring Tobacco use disorder Quit 03/04/2015. Unspecified gastritis and gastroduodenitis without mention of hemorrhage 02/09/2010 Small ulcer on EGD 2009 Upper GI bleed 02/09/2010 Allergies: Keflex [Cephalexin] Intolerance Comment:Tachycardia, palpitations. Vancomycin Hives Medication List Accurate as of September 04, 2024 8:19 AM. If you have any questions, ask your nurse or doctor. CONTINUE taking these medications acetaminophen 325 mg tablet Commonly known as: TYLENOL albuterol HFA 90 mcg/actuation inhaler Commonly known as: PROAIR HFA Inhale 2 Puffs as instructed every 4 hours as needed for wheezing/shortness of breath. atorvastatin 40 mg tablet Commonly known as: LIPITOR Take 1 tablet by mouth daily at bedtime. For cholesterol. azithromycin 250 mg tablet Commonly known as: ZITHROMAX Take 1 tablet by mouth once daily. benzonatate 100 mg capsule Commonly known as: TESSALON PERLE Take 2 capsules by mouth three times a day as needed for cough. busPIRone 10 mg tablet Commonly known as: BUSPAR Take 1 tablet by mouth two times a day. fluticasone 50 mcg/actuation nasal spray Commonly known as: FLONASE Use 2 Sprays in each nostril once daily. Rinse mouth after use. guaiFENesin 100 mg/5 mL syrup Commonly known as: ROBITUSSIN Take 30 mL by mouth two times a day. ipratropium-albuterol 0.5 mg-3 mg(2.5 mg base)/3 mL Nebu Commonly known as: DUONEB Inhale 3 mL as instructed every 4 hours as needed for wheezing/shortness of breath. isosorbide mononi (more content not included)...[facility] 08-30-2024 History of Present illness Narrative* Giuseppe Vargas RT(R) - 08/30/2024 10:05 AM EST Radiology Service Progress Note PATIENT NAME: Sneha Cardenas DATE OF SERVICE: August 30, 2024 TIME: 9:58 AM PATIENT IDENTITY VERIFICATION COMPLETED USING TWO (2) IDENTIFIERS: Name and Date of confirmedby patient verbally. FALL SCREENING: Has the patient had 2 falls in the last year or 1 fall with injury or currently using an Ambulatory Assistive Device (Walker, Cane, Wheelchair, Crutches, etc.)? No PATIENT GENDER DATA: Assigned female at . status: : No status:NO. PATIENT RELEVANT IMPLANT DATA REVIEWED: Not Applicable PATIENT PRESENTS WITH AN IMPLANTABLE OR ATTACHED PENSION ADMINISTRATOR: No RADIOLOGY DEPARTMENT: Bone Density PERIPHERAL IV DATA: Not applicable SIGNED BY: RT Mayte(Everardo) August 30, 2024 9:58 AM documented in this encounterP[facility]02-27-2025 NoteHNO ID: [id number] Author: GIUSEPPE VARGAS RT(R) Service: ? Author Type: Technologist Type: Progress Notes Filed: 08/30/2024 10:11 Note Text: Radiology Service Progress Note PATIENT NAME: Sneha Cardenas DATE OF SERVICE: August 30, 2024 TIME: 9:58 AM PATIENT IDENTITY VERIFICATION COMPLETED USING TWO (2) IDENTIFIERS: Name and Date of confirmed by patient verbally. FALL SCREENING: Has the patient had 2 falls in the last year or 1 fall with injury or currently using an Ambulatory Assistive Device (Walker, Cane, Wheelchair, Crutches, etc.)? No PATIENT GENDER DATA: Assigned female at . status: : No status: NO. PATIENT RELEVANT IMPLANT DATA REVIEWED: Not Applicable PATIENT PRESENTS WITH AN IMPLANTABLE OR ATTACHED PENSION ADMINISTRATOR: No RADIOLOGY DEPARTMENT: Bone Density PERIPHERAL IV DATA: Not applicable SIGNED BY: ERASMO Hu) August 30, 2024 9:58 [facility]02-11-2025 Telephone encounter Note* Telephone Encounter - Merillat, Magali, MA - 08/14/2024 12:24 PM EST Let detailed message on any confidential Magali Casey MA [facility]02-11-2025 Miscellaneous Notes* Telephone Encounter - Magali Casey MA - 08/14/2024 12:24 PM EST Let detailed message on any confidential Magali Casey MA * Telephone Encounter - Tasha Laureano APRN.CNP - 08/14/2024 12:12 PM EST Peg Laureano APRN.CNP * Telephone Encounter - Carol Sosa RN - 08/14/2024 9:54 AM EST Any with [facility] call to request a verbal order to move patient's PT visit this week to the end of the week per patient request instead of creating a missed visit. Call back number to Any is [phone]. Carol Sosa RN documented in this encounterP[facility]02-11-2025 Telephone encounter Note * Telephone Encounter - Tasha Laureano APRN.CNP - 08/14/2024 12:12 PM EST Peg Laureano APRN.CNP [facility]02-11-[facility]25 NoteHNO ID: [id number] Author: JULIO DRAPER MD Service: ? Author Type: Physician Type: Progress Notes Filed: 08/14/2024 12:52 Note Text: This note was created using [employer]. Subjective Patient presents with: Hospital F/U Sneha Cardenas is a 69 year old female was here again for another hospital follow up. She was admitted 08/06 to 08/10/24 for COPD exacerbation, acute on chronic respiratory failure, right pleural effusion, suspicious right lower lobe nodule, ESRD, and anemia. She just completed antibiotic with doxycycline from the ER. She tested positive again for RSV and was discharged on a prolonged steroid taper. She is feeling better overall. She was experiencing rib pain and nausea from coughing. Review of Systems Constitutional: Negative for appetite change, chills, diaphoresis and fever. HENT: Negative for congestion. Respiratory: Positive for cough. Negative for shortness of breath and wheezing. Cardiovascular: Negative for chest pain, palpitations and leg swelling. Gastrointestinal: Negative for abdominal pain, diarrhea, nausea and vomiting. Genitourinary: Negative for difficulty urinating. Neurological: Negative for dizziness and headaches. ACTIVE PROBLEM LIST Essential Tremor Environmental Allergies Chronic Obstructive Pulmonary Disease (Hcc) Primary Hypertension Hyperlipidemia Age-Related Osteoporosis Without Current Pathological Fracture Lung Nodule Chronic Respiratory Failure With Hypoxia (Hcc) Duodenal Ulcer Paroxysmal Atrial Fibrillation (Hcc) Anemia Requiring Transfusions Dysphagia Former Smoker Nstemi (Non-St Elevated Myocardial Infarction) (Hcc) Pleural Effusion Malnutrition of Mild Degree (Hcc) Esrd (End Stage Renal Disease) (Hcc) Coronary Artery Disease Anxiety About Health Social History Tobacco Use Smoking status: Former Current packs/day: 0.00 Average packs/day: 0.5 packs/day for 42.0 years (21.0 ttl pk-yrs) Types: Cigarettes Start date: 1974 Quit date: 05/23/2016 Years since quittin.2 Smokeless tobacco: Never Tobacco comments: Resumed short period. Quit for good 05/2016. Vaping Use Vaping status: Never Used Substance Use Topics Alcohol use: No Drug use: No Current Outpatient Medications Medication Sig benzonatate (TESSALON PERLE) 100 mg capsule Take 200 mg by mouth three times a day as needed. guaiFENesin (ROBITUSSIN) 100 mg/5 mL syrup Take 30 mL by mouth two times a day. isosorbide mononitrate ER (IMDUR) 60 mg 24 hr tablet Take 1 tablet by mouth once daily. montelukast (SINGULAIR) 10 mg tablet Take 1 tablet by mouth daily at bedtime. sucralfate (CARAFATE) 1 gram tablet Take 1 tablet by mouth two times a day. pantoprazole DR (PROTONIX) 40 mg tablet Take 1 tablet by mouth once daily. albuterol HFA (PROAIR HFA) 90 mcg/actuation inhaler Inhale 2 Puffs as instructed every 4 hours as needed for wheezing/shortness of breath. atorvastatin (LIPITOR) 40 mg tablet Take 1 tablet by mouth daily at bedtime. For cholesterol. busPIRone (BUSPAR) 10 mg tablet Take 1 tablet by mouth two times a day. tsrzhavvdl-ilscozlu-hadoysqmzt (BREZTRI) 160-9-4.8 mcg/actuation HFA aerosol inhaler Inhale 2 Puffs as instructed two times a day. fluticasone (FLONASE) 50 mcg/actuation nasal spray Use 2 Sprays in each nostril once daily. Rinse mouth after use. ondansetron orally disintegrating (ZOFRAN ODT) 4 mg disintegrating tablet Take 1 tablet by mouth every 8 hours as needed for nausea/vomiting. OXYGEN, HOME THERAPY, Inhale 3 L/min as instructed as directed. 3L NC continuous, up to 4L with exertion acetaminophen (TYLENOL) 325 mg tablet Take 650 mg by mouth every 6 hours as needed. nitroglycerin sublingual (NITROSTAT) 0.4 mg SL tablet Dissolve 0.4 mg under the tongue every 5 minutes as needed for chest pain. polyethylene glycol 3350 (MIRALAX) 17 gram/dose powder Take 17 g by mouth as needed for constipation. Dissolve dose in 4 - 8 ounces of liquid and take as directed. ipratropium-albuterol (DUONEB) 0.5 mg-3 mg(2.5 mg base)/3 mL nebu Inhale 3 mL as instructed every 4 hours as needed for wheezing/shortness of breath. predniSONE (DELTASONE) 10 mg tablet Take 10 mg by mouth once daily. See Taper PO daily x28 days No current facility-administered medications for this visit. Objective BP 134/60 (BP Site: Right Arm, BP Position: Sitting, BP Cuff Size: Large Adult) Pulse 104 Temp 36.3 ?C (97.3 ?F) (Temporal) Wt 61.7 kg (136 lb) BMI 23.71 kg/m? Physical Exam Constitutional: General: She is not in acute distress. Appearance: She is not diaphoretic. HENT: Head: Normocephalic. Mouth/Throat: Pharynx: Oropharynx is clear. Eyes: Conjunctiva/sclera: Conjunctivae normal. Cardiovascular: Rate and Rhythm: Normal rate and regular rhythm. Pulmonary: Effort: No respiratory distress. Breath sounds: Rales present. No wheezing or rhonchi. Abdominal: Palpations: Abdomen is soft. Tenderne (more content not included)...[facility]02-11-[facility] History of Present illness Narrative* Julio Draepr MD - 08/14/2024 11:40 AM EST This note was created using [employer]. Subjective Patient presents with: Hospital F/U Sneha Cardenas is a 69 year old female was here again for another hospital follow up. She was admitted 2/ to 08/10/24 for COPD exacerbation, acute on chronic respiratory failure, right pleural effusion, suspicious right lower lobe nodule, ESRD, and anemia. She just completed antibiotic with doxycycline from the ER. She tested positive again for RSV and was discharged on a prolonged steroid taper. She is feeling better overall. She was experiencing rib pain and nausea from coughing. Review of Systems Constitutional: Negative for appetite change, chills, diaphoresis and fever. HENT: Negative for congestion. Respiratory: Positive for cough. Negative for shortness of breath and wheezing. Cardiovascular: Negative for chest pain, palpitations and leg swelling. Gastrointestinal: Negative for abdominal pain, diarrhea, nausea and vomiting. Genitourinary: Negative for difficulty urinating. Neurological: Negative for dizziness and headaches. ACTIVE PROBLEM LIST Essential Tremor Environmental Allergies Chronic Obstructive Pulmonary Disease (Hcc) Primary Hypertension Hyperlipidemia Age-Related Osteoporosis Without Current Pathological Fracture Lung Nodule Chronic Respiratory Failure With Hypoxia (Hcc) Duodenal Ulcer Paroxysmal Atrial Fibrillation (Hcc) Anemia Requiring Transfusions Dysphagia Former Smoker Nstemi (Non-St Elevated Myocardial Infarction) (Hcc) Pleural Effusion Malnutrition of Mild Degree (Hcc) Esrd (End Stage Renal Disease) (Hcc) Coronary Artery Disease Anxiety About Health Social History Tobacco Use Smoking status: Former Current packs/day: 0.00 Average packs/day: 0.5 packs/day for 42.0 years (21.0 ttl pk-yrs) Types: Cigarettes Start date: 1974 Quit date: 05/23/2016 Years since quittin.2 Smokeless tobacco: Never Tobacco comments: Resumed short period. Quit for good 05/2016. Vaping Use Vaping status: Never Used Substance Use Topics Alcohol use: No Drug use: No Current Outpatient Medications Medication Sig benzonatate (TESSALON PERLE) 100 mg capsule Take 200 mg by mouth three times a day as needed. guaiFENesin (ROBITUSSIN) 100 mg/5 mL syrup Take 30 mL by mouth two times a day. isosorbide mononitrate ER (IMDUR) 60 mg 24 hr tablet Take 1 tablet by mouth once daily. montelukast (SINGULAIR) 10 mg tablet Take 1 tablet by mouth daily at bedtime. sucralfate (CARAFATE) 1 gram tablet Take 1 tablet by mouth two times a day. pantoprazole DR (PROTONIX) 40 mg tablet Take 1 tablet by mouth once daily. albuterol HFA (PROAIR HFA) 90 mcg/actuation inhaler Inhale 2 Puffs as instructed every 4 hours as needed for wheezing/shortness of breath. atorvastatin (LIPITOR) 40 mg tablet Take 1 tablet by mouth daily at bedtime. For cholesterol. busPIRone (BUSPAR) 10 mg tablet Take 1 tablet by mouth two times a day. aosxnkegyk-qfugjfyf-wlpdrfsvku (BREZTRI) 160-9-4.8 mcg/actuation HFA aerosol inhaler Inhale 2 Puffsas instructed two times a day. fluticasone (FLONASE) 50 mcg/actuation nasal spray Use 2 Sprays in each nostril once daily. Rinse mouth after use. ondansetron orally disintegrating (ZOFRAN ODT) 4 mg disintegrating tablet Take 1 tablet by mouth every 8 hours as needed for nausea/vomiting. OXYGEN, HOME THERAPY, Inhale 3 L/min as instructed as directed. 3L NC continuous, up to 4L with exertion acetaminophen (TYLENOL) 325 mg tablet Take 650 mg by mouth every 6 hours as needed. nitroglycerin sublingual (NITROSTAT) 0.4 mg SL tablet Dissolve 0.4 mg under the tongue every 5 minutes as needed for chest pain. polyethylene glycol 3350 (MIRALAX) 17 gram/dose powder Take 17 g by mouth as needed for constipation. Dissolve dose in 4 - 8 ounces of liquid and take as directed. ipratropium-albuterol (DUONEB) 0.5 mg-3 mg(2.5 mg base)/3 mL nebu Inhale 3 mL as instructed every 4hours as needed for wheezing/shortness of breath. predniSONE (DELTASONE) 10 mg tablet Take 10 mg by mouth once daily. See Taper PO daily x28 days No current facility-administered medications for this visit. Objective BP 134/60 (BP Site: Right Arm, BP Position: Sitting, BP Cuff Size: Large Adult) Pulse 104 Temp 36.3 C (97.3 F) (Temporal) Wt 61.7 kg (136 lb) BMI 23.71 kg/m Physical Exam Constitutional: General: She is not in acute distress. Appearance: She is not diaphoretic. HENT: Head: Normocephalic. Mouth/Throat: Pharynx: Oropharynx is clear. Eyes: Conjunctiva/sclera: Conjunctivae normal. Cardiovascular: Rate and Rhythm: Normal rate and regular rhythm. Pulmonary: Effort: No respiratory distress. Breath sounds: Rales present. No wheezing or rhonchi. Abdominal: Palpations: Abdomen is soft. Tenderness: There is no abdominal tenderness. Musculoskeletal: Right lower leg: No edema. Left lower leg: No edema. Neurological: General: No focal deficit present. Mental Status: She is alert. Comments: Wheelchair bound. On portable O2. Assessment and Plan 1. Chronic obstructive pulmonary disease with acute exacerbation (HCC) - ICD9: 491.21, ICD10: J44.1(primary diagnosis) Refractory. Frequent admissions. - ONDANSETRON 4 MG DISINTEGRATING TABLET - BENZONATATE 100 MG CAPSULE - AZITHROMYCIN 250 MG TABLET. Take one(1) tablet daily x 3 months. Discussed medication dosage, usage, goals of therapy, and side effects. 2. Chronic respiratory failure with hypoxia (HCC) - ICD9: 518.83, 799.02, ICD10: J96.11 Back to baseline. 3. Lung nodule - ICD9: 793.11, ICD10: R91.1 Follow up with pulmonary. 4. Malnutrition of mild degree (HCC) - ICD9: 263.1, ICD10: E44.1 Supplement. 5. ESRD (end stage renal disease) (HCC) - ICD9: 585.6, ICD10: N18.6 On HD 3 times per week. Julio Draper MD documented in this encounterP[facility]02-11-[facility]25 Telephone encounter Note * Telephone Encounter - Carol Sosa RN - 08/14/2024 9:54 AM EST Any with [facility] call to request a verbal order to move patient's PT visit this week to the end of the week per patient request instead of creating a missed visit. Call back number to Any is [phone]. Carol Sosa RN [facility]02-11-2025 NotePatient Outreach (INTMWS) SNEHA CARDENAS ([id number]) 1955 F Date Time Provider Department 08/14/24 JULIO DRAPER INTMWS During your visit today, we recorded the following information about you: Allergies As of Date: 08/14/2024 Noted Allergy Reaction KEFLEX (CEPHALEXIN) 10/04/2005 5 - Intolerance Comments: Tachycardia, palpitations. VANCOMYCIN 06/07/2024 4 - Hives Date Reviewed: 08/14/2024 Reviewed by: Anushka Alexis LPN - Fully Assessed Visit Diagnosis:Encounter for screening mammogram for breast cancer [Z12.31] Order(s):AISLINN SCREENING W MARY [[id number]] Order #: [id number] FUTURE Prescriptions as of 09/14/2024 - alendronate (FOSAMAX) 70 mg tablet Take 1 tablet by mouth one time a week. in the AM with glass of water on empty stomach. Do not take anything else by mouth or lie down for 30 min - Lactobacillus combination no.8 (ADULT PROBIOTIC ORAL) Take 1 capsule by mouth once daily. - oayubkfodpb-jpbavhywp-gqjrzbvt (TRELEGY ELLIPTA) 200-62.5-25 mcg inhalation powder Inhale 1 Puff as instructed once daily. - predniSONE (DELTASONE) 10 mg tablet Take 10 mg by mouth once daily. See Taper PO daily x28 days - ondansetron orally disintegrating (ZOFRAN ODT) 4 mg disintegrating tablet Take 1 tablet by mouth every 8 hours as needed for nausea/vomiting. - benzonatate (TESSALON PERLE) 100 mg capsule Take 2 capsules by mouth three times a day as needed for cough. - azithromycin (ZITHROMAX) 250 mg tablet Take 1 tablet by mouth once daily. - guaiFENesin (ROBITUSSIN) 100 mg/5 mL syrup Take 30 mL by mouth two times a day. - isosorbide mononitrate ER (IMDUR) 60 mg 24 hr tablet Take 1 tablet by mouth once daily. - montelukast (SINGULAIR) 10 mg tablet Take 1 tablet by mouth daily at bedtime. - sucralfate (CARAFATE) 1 gram tablet Take 1 tablet by mouth two times a day. - pantoprazole DR (PROTONIX) 40 mg tablet Take 1 tablet by mouth once daily. - albuterol HFA (PROAIR HFA) 90 mcg/actuation inhaler Inhale 2 Puffs as instructed every 4 hours as needed for wheezing/shortness of breath. - atorvastatin (LIPITOR) 40 mg tablet Take 1 tablet by mouth daily at bedtime. For cholesterol. - busPIRone (BUSPAR) 10 mg tablet Take 1 tablet by mouth two times a day. - fluticasone (FLONASE) 50 mcg/actuation nasal spray Use 2 Sprays in each nostril once daily. Rinse mouth after use. - OXYGEN, HOME THERAPY, Inhale 3 L/min as instructed as directed. 3L NC continuous, up to 4L with exertion - acetaminophen (TYLENOL) 325 mg tablet Take 650 mg by mouth every 6 hours as needed. - nitroglycerin sublingual (NITROSTAT) 0.4 mg SL tablet Dissolve 0.4 mg under the tongue every 5 minutes as needed for chest pain. - polyethylene glycol 3350 (MIRALAX) 17 gram/dose powder Take 17 g by mouth as needed for constipation. Dissolve dose in 4 - 8 ounces of liquid and take as directed. - ipratropium-albuterol (DUONEB) 0.5 mg-3 mg(2.5 mg base)/3 mL nebu Inhale 3 mL as instructed every 4 hours as needed for wheezing/shortness of breath. Problem List As Of Date 08/14/2024 Noted Resolved Tobacco use disorder [F17.200] 11/02/2007 02/10/2017 Essential tremor [G25.0] 11/02/2007 Other specified disorder of gallbladder [K82.8] 12/11/2007 07/20/2012 Unspecified gastritis and gastroduodenitis with*02/09/2010 07/15/2015 Blood in stool [K92.1] 02/09/2010 07/20/2012 Loss of weight [R63.4] 02/09/2010 07/20/2012 Upper GI bleed [K92.2] 02/09/2010 04/12/2024 Acute gastritis without mention of hemorrhage [*02/09/2010 07/20/2012 Essential hypertension, benign [I10] 05/17/2011 07/15/2015 Migraine headache [G43.909] 07/15/2015 Irritable bowel syndrome [K58.9] 07/15/2015 Scoliosis [M41.9] 02/10/2017 Environmental allergies [Z91.09] History of colon polyps [Z86.0100] 07/15/2015 Chronic obstructive pulmonary disease (HCC) [J4*07/25/2012 Cervical disc disorder with radiculopathy [M50.*08/15/2015 02/10/2017 DDD (degenerative disc disease), cervical [M50.*08/15/2015 02/10/2017 Primary hypertension [I10] 06/03/2016 Asthma [J45.909] 02/15/2019 Hyperlipidemia [E78.5] 02/15/2019 Age-related osteoporosis without current pathol*08/28/2021 Hypoxemia [R09.02] 05/01/2021 08/25/2023 Lung nodule [R91.1] 05/12/2021 Elevated blood pressure reading [R03.0] 05/03/2022 08/25/2023 Chronic respiratory failure with hypoxia (HCC) *11/05/2022 Duodenal ulcer [K26.9] 06/30/2023 Paroxysmal atrial fibrillation (HCC) [I48.0] 06/30/2023 Pneumonia due to infectious organism [J18.9] 06/30/2023 04/12/2024 Anemia requiring transfusions [D64.9] 07/01/2023 Acute on chronic hypoxic respiratory failure (H*07/09/2023 08/25/2023 Empyema (HCC) [J86.9] 07/09/2023 08/25/2023 Dysphagia [R13.10] 07/09/2023 Shock, septic (HCC) [A41.9, R65.21] 07/11/2023 08/25/2023 Antibiotic-associated diarrhea [K52.1, T36.95XA]07/14/2023 04/12/2024 Pulmonary emphysema (H (more content not included)...[facility] 08-11-2024 Telephone encounter Note* Telephone Encounter - Magali Casey MA - 08/11/2024 8:24 AM EST Patient was contacted and can take rx Magali Casey MA [facility]02-08-2025 Miscellaneous Notes* Telephone Encounter - Magali Casey MA - 08/11/2024 8:24 AM EST Patient was contacted and can take rx Magali Casey MA * Telephone Encounter - Julio Draper MD - 08/10/2024 5:09 PM EST Yes, she can take Mucinex preparation stated. * Telephone Encounter - Le Aponte RN - 08/10/2024 4:09 PM EST Genna with [facility] Nursing calling. Will continue to see patient 1x/week for 4 more weeks. Pt would like to know if she can continue to take Mucinex;Fast Max liquid OTC medication? Please call nurse Genna back at [phone]. Le Aponte, RN [facility] Telephone encounter Note * Telephone Encounter - Julio Draper MD - 08/10/2024 5:09 PM EST Yes, she can take Mucinex preparation stated. [facility]02-07-2025 Miscellaneous Notes* Telephone Encounter - Janie Yanes LPN - 08/10/2024 4:56 PM EST Phoned and left message on secure [employer] for Nell to notify of orders to resume C. Janie Yanes LPN * Telephone Encounter - Julio Draper MD - 08/10/2024 4:51 PM EST Okay. Resume HHC Tuesday08/14/24. * Telephone Encounter - Annette Farr LPN - 08/10/2024 11:39 AM EST Nell with [facility] calling to let you know pt is in the hospital and will be d/c today or tomorrow.Asking for verbal orders to do resumption of care on Tuesday with pt for home health. Please advise Nell back. Okay to leave a detailed message. Annette Farr LPN documented [facility] Telephone encounter Note * Telephone Encounter - Janie Yanes LPN - 08/10/2024 4:56 PM EST Phoned and left message on secure voicemail for Nell to notify of orders to resume [facility]. Janie Yanes LPN [facility]02-07-2025 Telephone encounter Note* Telephone Encounter - Julio Draper MD - 08/10/2024 4:51 PM EST Okay. Resume [facility] Tuesday08/14/24. [facility]02-07-2025 Telephone encounter Note* Telephone Encounter - Le Aponte RN - 08/10/2024 4:09 PM EST Genna with [facility] Nursing calling. Will continue to see patient 1x/week for 4 more weeks. Pt would like to know if she can continue to take Mucinex;Fast Max liquid OTC medication? Please call nurse Genna back at [phone]. Le Aponte RN [facility]02-07-2025 Telephone encounter Note* Telephone Encounter - Abimbola Lewis LPN - 08/10/2024 1:59 PM EST Per our office records, patient had been using Breztri. Informed patient Lexgy is an approved alternative and has the same triple therapy. She states she had been changed to Breztri in 2023 due to insurance formulary, and now Tre[facility] is formulary. She is still currently admitted. I encouraged her to contact us once she is discharged for outpatient follow up. Abimbola Lewis LPN [facility]02-07-2025 Miscellaneous Notes* Telephone Encounter - Abimbola Lewis LPN - 08/10/2024 1:59 PM EST Per our office records, patient had been using Breztri. Informed patient Trelegy is an approved alternative and has the same triple therapy. She states she had been changed to Breztri in 2023 due to insurance formulary, and now Trelegy is formulary. She is still currently admitted. I encouraged her to contact us once she is discharged for outpatient follow up. Abimbola Lewis LPN * Telephone Encounter - Annette Gonzalez MA - 08/10/2024 12:59 PM EST Pt calling in to report that she had been in and out of [facility] for 3 weeks with RSV. Sentjeffye with [facility]. She is calling to make sure this is something that Dr. Nieves would want her to take or if she would want her just to use the nebulizer treatments. She is finally doing better and she just doesn't want to have any set backs. Please review and advise. Annette Gonzalez MA documented [facility] Telephone encounter Note * Telephone Encounter - Annette Gonzalez MA - 08/10/2024 12:59 PM EST Pt calling in to report that she had been in and out of [facility] for 3 weeks with RSV. Sentrosalie with [facility]. She is calling to make sure this is something that Dr. Nieves would want her to take or if she would want her just to use the nebulizer treatments. She is finally doing better and she just doesn't want to have any set backs. Please review and advise. Annette Gonzalez MA [facility]02-07-2025 [facility]02-07-2025 Telephone encounter Note* Telephone Encounter - Annette Farr LPN - 08/10/2024 11:39 AM EST Nell with [facility] calling to let you know pt is in the hospital and will be d/c today or tomorrow.Asking for verbal orders to do resumption of care on Tuesday with pt for home health. Please advise Nell back. Okay to leave a detailed message. Annette Farr LPN [facility]01-30-2025 Telephone encounter Note* Telephone Encounter - Anushka Alexis LPN - 08/02/2024 8:23 AM EST Nathaly/[facility] Nurse notified of below, going out to the home this morning. Anushka Alexis LPN [facility]01-30-2025 Miscellaneous Notes* Telephone Encounter - Anushka Alexis LPN - 08/02/2024 8:23 AM EST Nathaly/[facility] Nurse notified of below, going out to the home this morning. Anushka Alexis LPN * Telephone Encounter - Julio Draper MD - 08/01/2024 6:10 PM EST Patient given extra dose of antibiotic yesterday. Continue monitoring for fever or development of new symptoms. * Telephone Encounter - Genna Lowry RN - 08/01/2024 4:43 PM EST Nathaly from [facility] calls and reports that she just spoke with patient. Patient currently has a temperature of 100.2 which was taken at 4 pm. Last tylenol that was taken was at 1:30 pm. Patient has notcomplaints of shortness of breath. O2 is 94-96 on 3 liters of oxygen. Patient had dialysis today and 1600 ml of fluid was pulled off. Home Health nursing is visiting patient already tomorrow. Please review and advise, Genna Lowyr RN documented [facility]01[facility] Telephone encounter Note * Telephone Encounter - Julio Draper MD - 08/01/2024 6:10 PM EST Patient given extra dose of antibiotic yesterday. Continue monitoring for fever or development of new symptoms. [facility]01-29-2025 Telephone encounter Note* Telephone Encounter - Genna Lowry RN - 08/01/2024 4:43 PM EST Nathaly from [facility] calls and reports that she just spoke with patient. Patient currently has a temperature of 100.2 which was taken at 4 pm. Last tylenol that was taken was at 1:30 pm. Patient has notcomplaints of shortness of breath. O2 is 94-96 on 3 liters of oxygen. Patient had dialysis today and 1600 ml of fluid was pulled off. Home Health nursing is visiting patient already tomorrow. Please review and advise, Genna Lowry RN [facility]01-28-2025 NoteHNO ID: [id number] Author: JULIO DRAPER MD Service: ? Author Type: Physician Type: Progress Notes Filed: 08/01/2024 00:12 Note Text: This note was created using NoteWriter. Subjective Transitional Care Management Progress Note The patients TCM visit was performed within the 7 days of discharge. Patient's Date of discharge: 07/27/24 Date of initial coordinator contact after discharge: 07/30/24 Discharge diagnosis: sepsis, RLL pneumonia, COPD exacerbation, ESRD. Medication review completed Yes Provider Documentation: In follow-up of hospitalization, Sneha Cardenas is a 69 year old female with the chief complaint of transition of care. I have reviewed the patient?s last hospital course including diagnostic testing performed during this hospitalization, their discharge medications, and my assessment and plan with the patient and spouse present at today?s visit. Sneha was admitted for sepsis, acute on chronic respiratory failure, RLL pneumonia, COPD exacerbation, and ESRD. CXR and CT of the chest showed pneumonia, no PE. Anemia was stable. Hyperkalemia was corrected during dialysis. Nephrology and ID specialists were consulted. IV antibiotics were switched to one dose of Cefdinir this weekend. She was feeling much better, but notes low grade fever 2 days ago. She went for dialysis yesterday. She was having difficulty swallowing Mucinex tablet. Review of Systems Constitutional: Positive for fever. Negative for chills and diaphoresis. HENT: Negative for congestion and sore throat. Respiratory: Positive for cough. Negative for chest tightness, shortness of breath and wheezing. Cardiovascular: Negative for chest pain. Gastrointestinal: Negative for diarrhea, nausea and vomiting. ACTIVE PROBLEM LIST Essential Tremor Environmental Allergies Chronic Obstructive Pulmonary Disease (Hcc) Primary Hypertension Hyperlipidemia Age-Related Osteoporosis Without Current Pathological Fracture Lung Nodule Chronic Respiratory Failure With Hypoxia (Hcc) Duodenal Ulcer Paroxysmal Atrial Fibrillation (Hcc) Anemia Requiring Transfusions Dysphagia Former Smoker Nstemi (Non-St Elevated Myocardial Infarction) (Hcc) Pleural Effusion Malnutrition of Mild Degree (Hcc) Esrd (End Stage Renal Disease) (Hcc) Coronary Artery Disease Anxiety About Health Social History Tobacco Use Smoking status: Former Current packs/day: 0.00 Average packs/day: 0.5 packs/day for 42.0 years (21.0 ttl pk-yrs) Types: Cigarettes Start date: 1974 Quit date: 05/23/2016 Years since quittin.1 Smokeless tobacco: Never Tobacco comments: Resumed short period. Quit for good 05/2016. Vaping Use Vaping status: Never Used Substance Use Topics Alcohol use: No Drug use: No Current Outpatient Medications Medication Sig isosorbide mononitrate ER (IMDUR) 60 mg 24 hr tablet Take 1 tablet by mouth once daily. montelukast (SINGULAIR) 10 mg tablet Take 1 tablet by mouth daily at bedtime. sucralfate (CARAFATE) 1 gram tablet Take 1 tablet by mouth two times a day. pantoprazole DR (PROTONIX) 40 mg tablet Take 1 tablet by mouth once daily. albuterol HFA (PROAIR HFA) 90 mcg/actuation inhaler Inhale 2 Puffs as instructed every 4 hours as needed for wheezing/shortness of breath. atorvastatin (LIPITOR) 40 mg tablet Take 1 tablet by mouth daily at bedtime. For cholesterol. busPIRone (BUSPAR) 10 mg tablet Take 1 tablet by mouth two times a day. fijwafwtie-zqqoyidy-oxwvgmdcah (BREZTRI) 160-9-4.8 mcg/actuation HFA aerosol inhaler Inhale 2 Puffs as instructed two times a day. fluticasone (FLONASE) 50 mcg/actuation nasal spray Use 2 Sprays in each nostril once daily. Rinse mouth after use. ondansetron orally disintegrating (ZOFRAN ODT) 4 mg disintegrating tablet Take 1 tablet by mouth every 8 hours as needed for nausea/vomiting. OXYGEN, HOME THERAPY, Inhale 3 L/min as instructed as directed. 3L NC continuous, up to 4L with exertion acetaminophen (TYLENOL) 325 mg tablet Take 650 mg by mouth every 6 hours as needed. nitroglycerin sublingual (NITROSTAT) 0.4 mg SL tablet Dissolve 0.4 mg under the tongue every 5 minutes as needed for chest pain. polyethylene glycol 3350 (MIRALAX) 17 gram/dose powder Take 17 g by mouth as needed for constipation. Dissolve dose in 4 - 8 ounces of liquid and take as directed. ipratropium-albuterol (DUONEB) 0.5 mg-3 mg(2.5 mg base)/3 mL nebu Inhale 3 mL as instructed every 4 hours as needed for wheezing/shortness of breath. (Patient taking differently: Inhale 3 mL as instructed every 6 hours as needed for wheezing/shortness of breath.) guaiFENesin (ROBITUSSIN) 100 mg/5 mL syrup Take 30 mL by mouth two times a day. predniSONE (DELTASONE) 10 mg tablet TAKE BY MOUTH 4 TABLETS DAILY FOR 2 DAYS, THEN 3 TABLETS DAILY FOR 2 DAYS, THEN 2 TABLETS DAILY FOR 2 DAYS, THEN 1 TABLET DAILY FOR 2 DAYS. (Patient not taking: Reported on 07/31/2024) No current facility (more content not included)...[facility] 07-31-2024 History of Present illness Narrative* Julio Draper MD - 07/31/2024 12:03 PM EST This note was created using [employer]. Subjective Transitional Care Management Progress Note The patients TCM visit was performed within the 7 days of discharge. Patient's Date of discharge: 07/27/24 Date of initial coordinator contact after discharge: 07/30/24 Discharge diagnosis: sepsis, RLL pneumonia, COPD exacerbation, ESRD. Medication review completed Yes Provider Documentation: In follow-up of hospitalization, Sneha Cardenas is a 69 year old female with the chief complaint of transition of care. I have reviewed the patient s last hospital course including diagnostic testing performed during this hospitalization, their discharge medications, and my assessment and plan with the patient and spouse present at today s visit. Sneha was admitted for sepsis, acute on chronic respiratory failure, RLL pneumonia, COPD exacerbation, and ESRD. CXR and CT of the chest showed pneumonia, no PE. Anemia was stable. Hyperkalemia was corrected during dialysis. Nephrology and ID specialists were consulted. IV antibiotics were switched to one dose of Cefdinir this weekend. She was feeling much better, but notes low grade fever 2 days ago. She went for dialysis yesterday. She was having difficulty swallowing Mucinex tablet. Review of Systems Constitutional: Positive for fever. Negative for chills and diaphoresis. HENT: Negative for congestion and sore throat. Respiratory: Positive for cough. Negative for chest tightness, shortness of breath and wheezing. Cardiovascular: Negative for chest pain. Gastrointestinal: Negative for diarrhea, nausea and vomiting. ACTIVE PROBLEM LIST Essential Tremor Environmental Allergies Chronic Obstructive Pulmonary Disease (Hcc) Primary Hypertension Hyperlipidemia Age-Related Osteoporosis Without Current Pathological Fracture Lung Nodule Chronic Respiratory Failure With Hypoxia (Hcc) Duodenal Ulcer Paroxysmal Atrial Fibrillation (Hcc) Anemia Requiring Transfusions Dysphagia Former Smoker Nstemi (Non-St Elevated Myocardial Infarction) (Hcc) Pleural Effusion Malnutrition of Mild Degree (Hcc) Esrd (End Stage Renal Disease) (Hcc) Coronary Artery Disease Anxiety About Health Social History Tobacco Use Smoking status: Former Current packs/day: 0.00 Average packs/day: 0.5 packs/day for 42.0 years (21.0 ttl pk-yrs) Types: Cigarettes Start date: 1974 Quit date: 05/23/2016 Years since quittin.1 Smokeless tobacco: Never Tobacco comments: Resumed short period. Quit for good 05/2016. Vaping Use Vaping status: Never Used Substance Use Topics Alcohol use: No Drug use: No Current Outpatient Medications Medication Sig isosorbide mononitrate ER (IMDUR) 60 mg 24 hr tablet Take 1 tablet by mouth once daily. montelukast (SINGULAIR) 10 mg tablet Take 1 tablet by mouth daily at bedtime. sucralfate (CARAFATE) 1 gram tablet Take 1 tablet by mouth two times a day. pantoprazole DR (PROTONIX) 40 mg tablet Take 1 tablet by mouth once daily. albuterol HFA (PROAIR HFA) 90 mcg/actuation inhaler Inhale 2 Puffs as instructed every 4 hours as needed for wheezing/shortness of breath. atorvastatin (LIPITOR) 40 mg tablet Take 1 tablet by mouth daily at bedtime. For cholesterol. busPIRone (BUSPAR) 10 mg tablet Take 1 tablet by mouth two times a day. qfpecshndk-xrzbqzkx-pllwydnchc (BREZTRI) 160-9-4.8 mcg/actuation HFA aerosol inhaler Inhale 2 Puffsas instructed two times a day. fluticasone (FLONASE) 50 mcg/actuation nasal spray Use 2 Sprays in each nostril once daily. Rinse mouth after use. ondansetron orally disintegrating (ZOFRAN ODT) 4 mg disintegrating tablet Take 1 tablet by mouth every 8 hours as needed for nausea/vomiting. OXYGEN, HOME THERAPY, Inhale 3 L/min as instructed as directed. 3L NC continuous, up to 4L with exertion acetaminophen (TYLENOL) 325 mg tablet Take 650 mg by mouth every 6 hours as needed. nitroglycerin sublingual (NITROSTAT) 0.4 mg SL tablet Dissolve 0.4 mg under the tongue every 5 minutes as needed for chest pain. polyethylene glycol 3350 (MIRALAX) 17 gram/dose powder Take 17 g by mouth as needed for constipation. Dissolve dose in 4 - 8 ounces of liquid and take as directed. ipratropium-albuterol (DUONEB) 0.5 mg-3 mg(2.5 mg base)/3 mL nebu Inhale 3 mL as instructed every 4hours as needed for wheezing/shortness of breath. (Patient taking differently: Inhale 3 mL as instructed every 6 hours as needed for wheezing/shortness of breath.) guaiFENesin (ROBITUSSIN) 100 mg/5 mL syrup Take 30 mL by mouth two times a day. predniSONE (DELTASONE) 10 mg tablet TAKE BY MOUTH 4 TABLETS DAILY FOR 2 DAYS, THEN 3 TABLETS DAILY FOR 2 DAYS, THEN 2 TABLETS DAILY FOR 2 DAYS, THEN 1 TABLET DAILY FOR 2 DAYS. (Patient not taking: Reported on 07/31/2024) No current facility-administered medications for this visit. Objective BP 136/64 (BP Site: Right Arm, BP Position: Sitting, BP Cuff Size: Regular Adult) Pulse 92 Temp(!) 35.8 C (96.5 F) (Temporal) Wt 62.1 kg (136 lb 14.5 oz) SpO2 97% BMI 23.87 kg/m Physical Exam Constitutional: General: She is not in acute distress. Appearance: She is not diaphoretic. HENT: Nose: No congestion or rhinorrhea. Cardiovascular: Rate and Rhythm: Normal rate. Heart sounds: No murmur heard. Pulmonary: Effort: No respiratory distress. Breath sounds: Rales present. No wheezing. Musculoskeletal: Right lower leg: No edema. Left lower leg: No edema. Neurological: General: No focal deficit present. Mental Status: She is alert. Assessment and Plan 1. Sepsis, due to unspecified organism, unspecified whether acute organ dysfunction present (HCC) -ICD9: 038.9, 995.91, ICD10: A41.9 (primary diagnosis) Resolved. 2. Pneumonia of right lower lobe due to infectious organism - ICD9: 486, ICD10: J18.9 Recheck CXR in 3 weeks. - XR CHEST 2V FRONTAL/LAT - CEFDINIR 300 MG CAPSULE. One more dose today, in between dialysis. 3. Chronic obstructive pulmonary disease with acute exacerbation (HCC) - ICD9: 491.21, ICD10: J44.1 - GUAIFENESIN 100 MG/5 ML ORAL LIQUID 4. Chronic respiratory failure with hypoxia (HCC) - ICD9: 518.83, 799.02, ICD10: J96.11 - Continue O2. 5. ESRD (end stage renal disease) (HCC) - ICD9: 585.6, ICD10: N18.6 - Dialysis tomorrow. Julio Draper MD [facility] Telephone encounter Note * Telephone Encounter - Annette Farr LPN - 07/30/2024 3:54 PM EST Nelson with [facility] , nursing calling with plan of care. He did a resumption of care for pt today. They will see pt 2 times a week for 2 weeks then 1 time a week for 2 weeks. DX Pneumonia, COPD . Pt wasd/c and to take Mucinex but pt is not going to take the this because they are to large and she can't swallow them. Per pt she feels a little better and does not feel she needs this. No call back needed as long as you agree with above. Annette Farr LPN [facility]01-27-2025 Miscellaneous Notes* Telephone Encounter - Annette Farr LPN - 07/30/2024 3:54 PM EST Nelson with [facility] , nursing calling with plan of care. He did a resumption of care for pt today. They will see pt 2 times a week for 2 weeks then 1 time a week for 2 weeks. DX Pneumonia, COPD . Pt wasd/c and to take Mucinex but pt is not going to take the this because they are to large and she can't swallow them. Per pt she feels a little better and does not feel she needs this. No call back needed as long as you agree with above. Annette Farr LPN [facility]01[facility]01-15-2025 NoteHNO ID: [id number] Author: JULIO DRAPER MD Service: ? Author Type: Physician Type: Progress Notes Filed: 07/18/2024 12:50 Note Text: This note was created using [employer]. Subjective Patient presents with: Hospital F/U Sneha Cardenas is a 69 year old female seen with her spouse. She was admitted 07/08-07/11/24 for COPD exacerbation, RSV infection, pneumonia, ESRD, and CHF. She was discharged on 1 dose of levofloxacin and prednisone 40 mg daily x 5 days, completed this Tuesday. She was better, less dyspneic, with productive cough. She was fatigued from dialysis this AM. Review of Systems Constitutional: Negative for chills, diaphoresis and fever. Respiratory: Positive for cough and shortness of breath. Cardiovascular: Negative for chest pain, palpitations and leg swelling. Gastrointestinal: Negative for diarrhea, nausea and vomiting. ACTIVE PROBLEM LIST Essential Tremor Environmental Allergies Chronic Obstructive Pulmonary Disease (Hcc) Primary Hypertension Hyperlipidemia Age-Related Osteoporosis Without Current Pathological Fracture Lung Nodule Chronic Respiratory Failure With Hypoxia (Hcc) Duodenal Ulcer Paroxysmal Atrial Fibrillation (Hcc) Anemia Requiring Transfusions Dysphagia Former Smoker Nstemi (Non-St Elevated Myocardial Infarction) (Hcc) Pleural Effusion Malnutrition of Mild Degree (Hcc) Esrd (End Stage Renal Disease) (Hcc) Coronary Artery Disease Anxiety About Health Social History Tobacco Use Smoking status: Former Current packs/day: 0.00 Average packs/day: 0.5 packs/day for 42.0 years (21.0 ttl pk-yrs) Types: Cigarettes Start date: 1974 Quit date: 05/23/2016 Years since quittin.1 Smokeless tobacco: Never Tobacco comments: Resumed short period. Quit for good 05/2016. Vaping Use Vaping status: Never Used Substance Use Topics Alcohol use: No Drug use: No Current Outpatient Medications Medication Sig isosorbide mononitrate ER (IMDUR) 60 mg 24 hr tablet Take 1 tablet by mouth once daily. montelukast (SINGULAIR) 10 mg tablet Take 1 tablet by mouth daily at bedtime. sucralfate (CARAFATE) 1 gram tablet Take 1 tablet by mouth two times a day. pantoprazole DR (PROTONIX) 40 mg tablet Take 1 tablet by mouth once daily. albuterol HFA (PROAIR HFA) 90 mcg/actuation inhaler Inhale 2 Puffs as instructed every 4 hours as needed for wheezing/shortness of breath. atorvastatin (LIPITOR) 40 mg tablet Take 1 tablet by mouth daily at bedtime. For cholesterol. busPIRone (BUSPAR) 10 mg tablet Take 1 tablet by mouth two times a day. pvzocmjnyv-oypylyod-hjydqdmpmm (BREZTRI) 160-9-4.8 mcg/actuation HFA aerosol inhaler Inhale 2 Puffs as instructed two times a day. fluticasone (FLONASE) 50 mcg/actuation nasal spray Use 2 Sprays in each nostril once daily. Rinse mouth after use. ondansetron orally disintegrating (ZOFRAN ODT) 4 mg disintegrating tablet Take 1 tablet by mouth every 8 hours as needed for nausea/vomiting. OXYGEN, HOME THERAPY, Inhale 3 L/min as instructed as directed. 3L NC continuous, up to 4L with exertion acetaminophen (TYLENOL) 325 mg tablet Take 650 mg by mouth every 6 hours as needed. nitroglycerin sublingual (NITROSTAT) 0.4 mg SL tablet Dissolve 0.4 mg under the tongue every 5 minutes as needed for chest pain. polyethylene glycol 3350 (MIRALAX) 17 gram/dose powder Take 17 g by mouth as needed for constipation. Dissolve dose in 4 - 8 ounces of liquid and take as directed. ipratropium-albuterol (DUONEB) 0.5 mg-3 mg(2.5 mg base)/3 mL nebu Inhale 3 mL as instructed every 4 hours as needed for wheezing/shortness of breath. (Patient taking differently: Inhale 3 mL as instructed every 6 hours as needed for wheezing/shortness of breath.) No current facility-administered medications for this visit. Objective BP 126/74 (BP Site: Right Arm, BP Position: Sitting, BP Cuff Size: Regular Adult) Pulse 88 Temp 36.9 ?C (98.4 ?F) (Temporal) Resp (!) 1 Physical Exam Constitutional: General: She is not in acute distress. Appearance: She is ill-appearing. HENT: Nose: No congestion or rhinorrhea. Cardiovascular: Rate and Rhythm: Normal rate and regular rhythm. Heart sounds: No murmur heard. No gallop. Pulmonary: Effort: No accessory muscle usage, prolonged expiration or respiratory distress. Breath sounds: Decreased breath sounds, wheezing and rhonchi present. No rales. Comments: On portable O2 via NC. Abdominal: Tenderness: There is no abdominal tenderness. Musculoskeletal: Right lower leg: No edema. Left lower leg: No edema. Neurological: General: No focal deficit present. Mental Status: She is alert. Comments: Wheelchair bound. Assessment and Plan 1. Chronic obstructive pulmonary disease with acute exacerbation (HCC) - ICD9: 491.21, ICD10: J44.1 (primary diagnosis) Improving. We agreed to do another round of steroid taper. - PREDNISONE 10 MG TABLET 2. Pneumonia due (more content not included)...[facility] 07-18-2024 History of Present illness Narrative* Julio Draper MD - 07/18/2024 11:28 AM EST This note was created using [employer]. Subjective Patient presents with: Hospital F/U Sneha Cardenas is a 69 year old female seen with her spouse. She was admitted 07/08-07/11/24 for COPDexacerbation, RSV infection, pneumonia, ESRD, and CHF. She was discharged on 1 dose of levofloxacinand prednisone 40 mg daily x 5 days, completed this Tuesday. She was better, less dyspneic, with productive cough. She was fatigued from dialysis this AM. Review of Systems Constitutional: Negative for chills, diaphoresis and fever. Respiratory: Positive for cough and shortness of breath. Cardiovascular: Negative for chest pain, palpitations and leg swelling. Gastrointestinal: Negative for diarrhea, nausea and vomiting. ACTIVE PROBLEM LIST Essential Tremor Environmental Allergies Chronic Obstructive Pulmonary Disease (Hcc) Primary Hypertension Hyperlipidemia Age-Related Osteoporosis Without Current Pathological Fracture Lung Nodule Chronic Respiratory Failure With Hypoxia (Hcc) Duodenal Ulcer Paroxysmal Atrial Fibrillation (Hcc) Anemia Requiring Transfusions Dysphagia Former Smoker Nstemi (Non-St Elevated Myocardial Infarction) (Hcc) Pleural Effusion Malnutrition of Mild Degree (Hcc) Esrd (End Stage Renal Disease) (Hcc) Coronary Artery Disease Anxiety About Health Social History Tobacco Use Smoking status: Former Current packs/day: 0.00 Average packs/day: 0.5 packs/day for 42.0 years (21.0 ttl pk-yrs) Types: Cigarettes Start date: 1974 Quit date: 05/23/2016 Years since quittin.1 Smokeless tobacco: Never Tobacco comments: Resumed short period. Quit for good 05/2016. Vaping Use Vaping status: Never Used Substance Use Topics Alcohol use: No Drug use: No Current Outpatient Medications Medication Sig isosorbide mononitrate ER (IMDUR) 60 mg 24 hr tablet Take 1 tablet by mouth once daily. montelukast (SINGULAIR) 10 mg tablet Take 1 tablet by mouth daily at bedtime. sucralfate (CARAFATE) 1 gram tablet Take 1 tablet by mouth two times a day. pantoprazole DR (PROTONIX) 40 mg tablet Take 1 tablet by mouth once daily. albuterol HFA (PROAIR HFA) 90 mcg/actuation inhaler Inhale 2 Puffs as instructed every 4 hours as needed for wheezing/shortness of breath. atorvastatin (LIPITOR) 40 mg tablet Take 1 tablet by mouth daily at bedtime. For cholesterol. busPIRone (BUSPAR) 10 mg tablet Take 1 tablet by mouth two times a day. jagbdovwqz-lcrxdqvh-etgmyxzyhi (BREZTRI) 160-9-4.8 mcg/actuation HFA aerosol inhaler Inhale 2 Puffsas instructed two times a day. fluticasone (FLONASE) 50 mcg/actuation nasal spray Use 2 Sprays in each nostril once daily. Rinse mouth after use. ondansetron orally disintegrating (ZOFRAN ODT) 4 mg disintegrating tablet Take 1 tablet by mouth every 8 hours as needed for nausea/vomiting. OXYGEN, HOME THERAPY, Inhale 3 L/min as instructed as directed. 3L NC continuous, up to 4L with exertion acetaminophen (TYLENOL) 325 mg tablet Take 650 mg by mouth every 6 hours as needed. nitroglycerin sublingual (NITROSTAT) 0.4 mg SL tablet Dissolve 0.4 mg under the tongue every 5 minutes as needed for chest pain. polyethylene glycol 3350 (MIRALAX) 17 gram/dose powder Take 17 g by mouth as needed for constipation. Dissolve dose in 4 - 8 ounces of liquid and take as directed. ipratropium-albuterol (DUONEB) 0.5 mg-3 mg(2.5 mg base)/3 mL nebu Inhale 3 mL as instructed every 4hours as needed for wheezing/shortness of breath. (Patient taking differently: Inhale 3 mL as instructed every 6 hours as needed for wheezing/shortness of breath.) No current facility-administered medications for this visit. Objective BP 126/74 (BP Site: Right Arm, BP Position: Sitting, BP Cuff Size: Regular Adult) Pulse 88 Temp36.9 C (98.4 F) (Temporal) Resp (!) 1 Physical Exam Constitutional: General: She is not in acute distress. Appearance: She is ill-appearing. HENT: Nose: No congestion or rhinorrhea. Cardiovascular: Rate and Rhythm: Normal rate and regular rhythm. Heart sounds: No murmur heard. No gallop. Pulmonary: Effort: No accessory muscle usage, prolonged expiration or respiratory distress. Breath sounds: Decreased breath sounds, wheezing and rhonchi present. No rales. Comments: On portable O2 via NC. Abdominal: Tenderness: There is no abdominal tenderness. Musculoskeletal: Right lower leg: No edema. Left lower leg: No edema. Neurological: General: No focal deficit present. Mental Status: She is alert. Comments: Wheelchair bound. Assessment and Plan 1. Chronic obstructive pulmonary disease with acute exacerbation (HCC) - ICD9: 491.21, ICD10: J44.1(primary diagnosis) Improving. We agreed to do another round of steroid taper. - PREDNISONE 10 MG TABLET 2. Pneumonia due to infectious organism, unspecified laterality, unspecified part of lung - ICD9: 486, ICD10: J18.9 Treated. We agreed follow up imaging will be at her pulmonary follow up. 3. Chronic respiratory failure with hypoxia (HCC) - ICD9: 518.83, 799.02, ICD10: J96.11 Stable on O2. 4. Lung nodule - ICD9: 793.11, ICD10: R91.1 - For pulmonary follow up. 5. ESRD (end stage renal disease) (HCC) - ICD9: 585.6, ICD10: N18.6 - Per nephrology. Dialysis ongoing. Julio Draper MD [facility] Telephone encounter Note * Telephone Encounter - Mary Kay Woodard RN - 07/13/2024 10:16 AM EST Called and left a detailed voicemail notifying Nathaly nurse with [facility] of providers message. Clinicphone number was left in case she had any questions. Mary Kay Woodard RN [facility]01-10-2025 Miscellaneous Notes* Telephone Encounter - Mary Kay Woodard RN - 07/13/2024 10:16 AM EST Called and left a detailed voicemail notifying Nathaly nurse with [facility] of providers message. Clinicphone number was left in case she had any questions. Mary Kay Woodard RN * Telephone Encounter - Julio Draper MD - 07/13/2024 10:05 AM EST I agree with POC. * Telephone Encounter - Sarah Peña RN - 07/12/2024 2:48 PM EST Nathaly nurse with [facility] calling in as pt was discharged from [facility] yesterday for a COPD exacerbation secondary to pneumonia and RSV+. Nathaly saw patient today for start of care. States pt is doing pretty well. Has some weakness in lower extremities. Pt is usually is on 3 L of O2 but is currently on 5 L of O2 with pulse ox of 91%. Pt just took her last dose of Levaquin today and is on day 1 of Prednisone 40 mg for 5 days. Pt has a pretty bad cough-hard for pt to get mucous up. When she does, it is a thick yellow. Nathaly wants to keep a close eye on pt so nursing will see her 2x per week for 1 weekthen 1x per week for 2 weeks. [facility] Telephone encounter Note * Telephone Encounter - Julio Draper MD - 07/13/2024 10:05 AM EST I agree with HH POC. [facility]01-09-[facility] Telephone encounter Note* Telephone Encounter - Sarah Peña RN - 07/12/2024 2:48 PM EST Nathaly nurse with [facility] calling in as pt was discharged from [facility] yesterday for a COPD exacerbation secondary to pneumonia and RSV+. Nathaly saw patient today for start of care. States pt is doing pretty well. Has some weakness in lower extremities. Pt is usually is on 3 L of O2 but is currently on 5 L of O2 with pulse ox of 91%. Pt just took her last dose of Levaquin today and is on day 1 of Prednisone 40 mg for 5 days. Pt has a pretty bad cough-hard for pt to get mucous up. When she does, it is a thick yellow. Nathaly wants to keep a close eye on pt so nursing will see her 2x per week for 1 weekthen 1x per week for 2 weeks. [facility]01-08[facility]25 [facility]01-06-2025 Telephone encounter Note* Telephone Encounter - Magali Casey MA - 07/09/2024 1:17 PM EST Left detailed message on confidential vm Magali Casey MA [facility]01-06-2025 Miscellaneous Notes* Telephone Encounter - Magali Casey MA - 07/09/2024 1:17 PM EST Left detailed message on confidential vm Magali Casey MA * Telephone Encounter - Julio Draper MD - 07/09/2024 12:26 PM EST I will follow. * Telephone Encounter - Genna Lowry RN - 07/09/2024 12:12 PM EST Nell from [facility] calls and states that patient is being discharged from [facility] either today or tomorrow with the diagnosis of RSV. Nell asking if provider willing to follow patient with orders for group home, occupational therapy, and physical therapy. If agreeable please give Nell a call back . Thank you, Genna Lowry RN [facility] Telephone encounter Note * Telephone Encounter - Julio Draper MD - 07/09/2024 12:26 PM EST I will follow. [facility]01-06-[facility] Telephone encounter Note* Telephone Encounter - Genna Lowry RN - 07/09/2024 12:12 PM EST Nell from [facility] calls and states that patient is being discharged from [facility] either today or tomorrow with the diagnosis of RSV. Nell asking if provider willing to follow patient with orders for group home, occupational therapy, and physical therapy. If agreeable please give Nell a call back . Thank you, Genna Lowry RN [facility]01-05-2025 Evaluation note* Diagnosis Onset Date Resolution Status Admit Date Respiratory syncytial virus bronchitis acute July 08 5:59am COPD exacerbation resolved July 08, 2024 5:59am Hypokalemia resolved July 08, 2024 5:59am End-stage renal disease (ESRD) inactive July 08 5:59am Pulmonary nodule inactive July 08, 2024 5:59am Acute respiratory failure with hypoxia resolved July 12:31pm Anemia of chronic disease inactive July 23 12:31pm End stage chronic kidney disease inactive July 23 12:31pm End-stage renal disease (ESRD) inactive July 23 12:31pm Pneumonia inactive July 23, 2024 12:31pm Sepsis inactive July 23, 2024 12:31pm Acute exacerbation of chronic obstructive pulmonary disease (COPD) resolved 2024 7:25am End stage renal disease on dialysis inactive August 06 7:25am Pulmonary nodule inactive August 06, 2024 7:25am ESRD (end stage renal disease) on dialysis acute September 06, 2024 7:01am AVF (arteriovenous fistula) March 13, 2024 acute September 20, 2024 10:22am ESRD (end stage renal disease) on dialysis acute September 20, 2024 10:22am [facility] Work Phone: 1(732) 193-324701-02-2025 NoteHNO ID: [id number] Author: JULIO DRAPER MD Service: ? Author Type: Physician Type: Progress Notes Filed: 07/05/2024 14:13 Note Text: This note was created using [employer]. Subjective Patient presents with: ER F/U nSeha Cardenas is a 69 year old female. She developed increased dyspnea and was referred to the ER from dialysis. She was treated for COPD exacerbation with nebulizer treatment. Chest xray showed some vascular congestion, but labs were overall benign. She felt this was related to rescheduled dialysis over the holidays. She felt back to baseline. Review of Systems Constitutional: Negative for chills, fatigue and fever. Respiratory: Negative. Cardiovascular: Negative for chest pain, palpitations and leg swelling. Gastrointestinal: Negative. ACTIVE PROBLEM LIST Essential Tremor Environmental Allergies Chronic Obstructive Pulmonary Disease (Hcc) Primary Hypertension Hyperlipidemia Age-Related Osteoporosis Without Current Pathological Fracture Lung Nodule Chronic Respiratory Failure With Hypoxia (Hcc) Duodenal Ulcer Paroxysmal Atrial Fibrillation (Hcc) Anemia Requiring Transfusions Dysphagia Former Smoker Nstemi (Non-St Elevated Myocardial Infarction) (Hcc) Pleural Effusion Malnutrition of Mild Degree (Hcc) Esrd (End Stage Renal Disease) (Hcc) Coronary Artery Disease Anxiety About Health Current Outpatient Medications Medication Sig isosorbide mononitrate ER (IMDUR) 60 mg 24 hr tablet Take 1 tablet by mouth once daily. montelukast (SINGULAIR) 10 mg tablet Take 1 tablet by mouth daily at bedtime. sucralfate (CARAFATE) 1 gram tablet Take 1 tablet by mouth two times a day. pantoprazole DR (PROTONIX) 40 mg tablet Take 1 tablet by mouth once daily. albuterol HFA (PROAIR HFA) 90 mcg/actuation inhaler Inhale 2 Puffs as instructed every 4 hours as needed for wheezing/shortness of breath. atorvastatin (LIPITOR) 40 mg tablet Take 1 tablet by mouth daily at bedtime. For cholesterol. busPIRone (BUSPAR) 10 mg tablet Take 1 tablet by mouth two times a day. efcnzuuewz-sargolvo-hcxyaxsdty (BREZTRI) 160-9-4.8 mcg/actuation HFA aerosol inhaler Inhale 2 Puffs as instructed two times a day. fluticasone (FLONASE) 50 mcg/actuation nasal spray Use 2 Sprays in each nostril once daily. Rinse mouth after use. ondansetron orally disintegrating (ZOFRAN ODT) 4 mg disintegrating tablet Take 1 tablet by mouth every 8 hours as needed for nausea/vomiting. OXYGEN, HOME THERAPY, Inhale 3 L/min as instructed as directed. 3L NC continuous, up to 4L with exertion acetaminophen (TYLENOL) 325 mg tablet Take 650 mg by mouth every 6 hours as needed. nitroglycerin sublingual (NITROSTAT) 0.4 mg SL tablet Dissolve 0.4 mg under the tongue every 5 minutes as needed for chest pain. polyethylene glycol 3350 (MIRALAX) 17 gram/dose powder Take 17 g by mouth as needed for constipation. Dissolve dose in 4 - 8 ounces of liquid and take as directed. ipratropium-albuterol (DUONEB) 0.5 mg-3 mg(2.5 mg base)/3 mL nebu Inhale 3 mL as instructed every 4 hours as needed for wheezing/shortness of breath. (Patient taking differently: Inhale 3 mL as instructed every 6 hours as needed for wheezing/shortness of breath.) No current facility-administered medications for this visit. Objective BP 142/64 (BP Site: Right Arm, BP Position: Sitting, BP Cuff Size: Large Adult) Pulse 104 Temp 36.6 ?C (97.9 ?F) (Temporal) Resp 16 Wt 63.8 kg (140 lb 10.5 oz) SpO2 97% BMI 24.52 kg/m? Physical Exam Constitutional: General: She is not in acute distress. Appearance: She is not diaphoretic. HENT: Nose: No congestion. Cardiovascular: Rate and Rhythm: Regular rhythm. Tachycardia present. Heart sounds: No murmur heard. No gallop. Pulmonary: Breath sounds: No decreased air movement. Rhonchi present. No wheezing or rales. Comments: On portable O2. Musculoskeletal: Right lower leg: No edema. Left lower leg: No edema. Neurological: General: No focal deficit present. Mental Status: She is alert. Comments: On wheelchair. Assessment and Plan 1. Chronic obstructive pulmonary disease with acute exacerbation (HCC) - ICD9: 491.21, ICD10: J44.1 (primary diagnosis) Controlled. 2. Chronic respiratory failure with hypoxia (HCC) - ICD9: 518.83, 799.02, ICD10: J96.11 Stable. 3. Primary hypertension - ICD9: 401.9, ICD10: I10 Labile. - Continue current medications 4. Paroxysmal atrial fibrillation (HCC) - ICD9: 427.31, ICD10: I48.0 - Controlled. Julio Draper [facility]01-02-2025 History of Present illness Narrative* Julio Draper MD - 07/05/2024 1:25 PM EST This note was created using NoteWriter. Subjective Patient presents with: ER F/U Sneha Reji Cardenas is a 69 year old female. She developed increased dyspnea and was referred to the ER from dialysis. She was treated for COPD exacerbation with nebulizer treatment. Chest xray showed some vascular congestion, but labs were overall benign. She felt this was related to rescheduled dialysis over the holidays. She felt back to baseline. Review of Systems Constitutional: Negative for chills, fatigue and fever. Respiratory: Negative. Cardiovascular: Negative for chest pain, palpitations and leg swelling. Gastrointestinal: Negative. ACTIVE PROBLEM LIST Essential Tremor Environmental Allergies Chronic Obstructive Pulmonary Disease (Hcc) Primary Hypertension Hyperlipidemia Age-Related Osteoporosis Without Current Pathological Fracture Lung Nodule Chronic Respiratory Failure With Hypoxia (Hcc) Duodenal Ulcer Paroxysmal Atrial Fibrillation (Hcc) Anemia Requiring Transfusions Dysphagia Former Smoker Nstemi (Non-St Elevated Myocardial Infarction) (Hcc) Pleural Effusion Malnutrition of Mild Degree (Hcc) Esrd (End Stage Renal Disease) (Hcc) Coronary Artery Disease Anxiety About Health Current Outpatient Medications Medication Sig isosorbide mononitrate ER (IMDUR) 60 mg 24 hr tablet Take 1 tablet by mouth once daily. montelukast (SINGULAIR) 10 mg tablet Take 1 tablet by mouth daily at bedtime. sucralfate (CARAFATE) 1 gram tablet Take 1 tablet by mouth two times a day. pantoprazole DR (PROTONIX) 40 mg tablet Take 1 tablet by mouth once daily. albuterol HFA (PROAIR HFA) 90 mcg/actuation inhaler Inhale 2 Puffs as instructed every 4 hours as needed for wheezing/shortness of breath. atorvastatin (LIPITOR) 40 mg tablet Take 1 tablet by mouth daily at bedtime. For cholesterol. busPIRone (BUSPAR) 10 mg tablet Take 1 tablet by mouth two times a day. xnzgojkhit-nvyffkho-femderugkr (BREZTRI) 160-9-4.8 mcg/actuation HFA aerosol inhaler Inhale 2 Puffsas instructed two times a day. fluticasone (FLONASE) 50 mcg/actuation nasal spray Use 2 Sprays in each nostril once daily. Rinse mouth after use. ondansetron orally disintegrating (ZOFRAN ODT) 4 mg disintegrating tablet Take 1 tablet by mouth every 8 hours as needed for nausea/vomiting. OXYGEN, HOME THERAPY, Inhale 3 L/min as instructed as directed. 3L NC continuous, up to 4L with exertion acetaminophen (TYLENOL) 325 mg tablet Take 650 mg by mouth every 6 hours as needed. nitroglycerin sublingual (NITROSTAT) 0.4 mg SL tablet Dissolve 0.4 mg under the tongue every 5 minutes as needed for chest pain. polyethylene glycol 3350 (MIRALAX) 17 gram/dose powder Take 17 g by mouth as needed for constipation. Dissolve dose in 4 - 8 ounces of liquid and take as directed. ipratropium-albuterol (DUONEB) 0.5 mg-3 mg(2.5 mg base)/3 mL nebu Inhale 3 mL as instructed every 4hours as needed for wheezing/shortness of breath. (Patient taking differently: Inhale 3 mL as instructed every 6 hours as needed for wheezing/shortness of breath.) No current facility-administered medications for this visit. Objective BP 142/64 (BP Site: Right Arm, BP Position: Sitting, BP Cuff Size: Large Adult) Pulse 104 Temp 36.6 C (97.9 F) (Temporal) Resp 16 Wt 63.8 kg (140 lb 10.5 oz) SpO2 97% BMI 24.52 kg/m Physical Exam Constitutional: General: She is not in acute distress. Appearance: She is not diaphoretic. HENT: Nose: No congestion. Cardiovascular: Rate and Rhythm: Regular rhythm. Tachycardia present. Heart sounds: No murmur heard. No gallop. Pulmonary: Breath sounds: No decreased air movement. Rhonchi present. No wheezing or rales. Comments: On portable O2. Musculoskeletal: Right lower leg: No edema. Left lower leg: No edema. Neurological: General: No focal deficit present. Mental Status: She is alert. Comments: On wheelchair. Assessment and Plan 1. Chronic obstructive pulmonary disease with acute exacerbation (HCC) - ICD9: 491.21, ICD10: J44.1(primary diagnosis) Controlled. 2. Chronic respiratory failure with hypoxia (HCC) - ICD9: 518.83, 799.02, ICD10: J96.11 Stable. 3. Primary hypertension - ICD9: 401.9, ICD10: I10 Labile. - Continue current medications 4. Paroxysmal atrial fibrillation (HCC) - ICD9: 427.31, ICD10: I48.0 - Controlled. Julio Draper MD [facility] Telephone encounter Note * Telephone Encounter - Genna Lowry RN - 07/03/2024 10:24 AM EST Patient call in for increased shortness of breath. Dialysis had recommended patient call PCP regarding shortness of breath. Patient O2 level has dropped to 83 with exertion. O2 will drop with exertion due to COPD but it will quickly recover when resting. Patient reports that it is taking longer to recover. Nurse Triage assessment completed with protocol recommending for disposition of Go to ED now. Patient voices understanding. Care advice reviewed with patient, patient stated understanding. Reason for Disposition Patient sounds very sick or weak to the triager Answer Assessment - Initial Assessment Questions 1. RESPIRATORY STATUS: Shortness of breath 2. ONSET: X 1 week; states that it was better 3. PATTERN Constant 4. SEVERITY: Shortness of breath with activity. Patient states that with activity her pul sox is dropping 83 %. O2 when resting is taking more time to get back to normal. O2 sitting currently is 93, normally it can go up to 95. 5. RECURRENT SYMPTOM: Yes 6. CARDIAC HISTORY: Denies 7. LUNG HISTORY: COPD; pneumonia 8. CAUSE: Unsure 9. OTHER SYMPTOMS: cough 10. O2 SATURATION MONITOR: 93 resting; Drops down to 83 with activity Protocols used: Breathing [id number] [facility]12-31-2024 Miscellaneous Notes* Telephone Encounter - Genna Lowry RN - 07/03/2024 10:24 AM EST Patient call in for increased shortness of breath. Dialysis had recommended patient call PCP regarding shortness of breath. Patient O2 level has dropped to 83 with exertion. O2 will drop with exertion due to COPD but it will quickly recover when resting. Patient reports that it is taking longer to recover. Nurse Triage assessment completed with protocol recommending for disposition of Go to ED now. Patient voices understanding. Care advice reviewed with patient, patient stated understanding. Reason for Disposition Patient sounds very sick or weak to the triager Answer Assessment - Initial Assessment Questions 1. RESPIRATORY STATUS: Shortness of breath 2. ONSET: X 1 week; states that it was better 3. PATTERN Constant 4. SEVERITY: Shortness of breath with activity. Patient states that with activity her pul sox is dropping 83 %. O2 when resting is taking more time to get back to normal. O2 sitting currently is 93, normally it can go up to 95. 5. RECURRENT SYMPTOM: Yes 6. CARDIAC HISTORY: Denies 7. LUNG HISTORY: COPD; pneumonia 8. CAUSE: Unsure 9. OTHER SYMPTOMS: cough 10. O2 SATURATION MONITOR: 93 resting; Drops down to 83 with activity Protocols used: Breathing [id number] [facility] Tele[facility] encounter Note * Telephone Encounter - Lorna Angel RN - 06/15/2024 1:49 PM EST Prescription Refill Information The patient has been identified by name and date of : Yes Caregiver verified no other encounters exist for this prescription request: Yes Caregiver confirmed with patient/requestor that no other refills are due, in the near future, with this provider at this time: Yes The last office visit in the department: 05/15/24 Does the patient have a future office visit with this provider/department: Yes Requested Prescriptions Pending Prescriptions Disp Refills isosorbide mononitrate ER (IMDUR) 60 mg 24 hr tablet 90 tablet 3 Sig: Take 1 tablet by mouth once daily. montelukast (SINGULAIR) 10 mg tablet 90 tablet 3 Sig: Take 1 tablet by mouth daily at bedtime. Lorna Angel RN June 15, 2024 1:50 PM [facility]12-13-[facility] Miscellaneous Notes* Telephone Encounter - Lorna Angel RN - 06/15/2024 1:49 PM EST Prescription Refill Information The patient has been identified by name and date of : Yes Caregiver verified no other encounters exist for this prescription request: Yes Caregiver confirmed with patient/requestor that no other refills are due, in the near future, with this provider at this time: Yes The last office visit in the department: 05/15/24 Does the patient have a future office visit with this provider/department: Yes Requested Prescriptions Pending Prescriptions Disp Refills isosorbide mononitrate ER (IMDUR) 60 mg 24 hr tablet 90 tablet 3 Sig: Take 1 tablet by mouth once daily. montelukast (SINGULAIR) 10 mg tablet 90 tablet 3 Sig: Take 1 tablet by mouth daily at bedtime. Lorna Angel RN June 15, 2024 1:50 PM [facility] History of Present illness Narrative* Magali Nieves MD - 06/07/2024 1:45 PM EST Images from the original note were not included. . [facility] [place] Note Patient name: Sneha Cardenas PCP: Julio Draper MD CC: Follow up COPD HPI: Sneha Cardenas 69 year old female former 20 pack year smoker with PMH significant for tremors, HTN, COVID PNA 2020, chronic hypoxemic respiratory failure, AF (not anticoagulated due to GIB), severe COPD/emphysema, multiple nodules on chest imaging and 2 cm RUL GGO, history notable for complicated parapneumonic effusion requiring chest tube, EARNEST/ATN and now ESRD requiring dialysis. Current therapy with Trelegy Ellipta. Presents for follow-up her recent chest CT. Having trouble with cramping with dialysis. She is somewhat disheartened by her slow recovery as it has been almost a year since her illness. From a pulmonary standpoint she has dyspnea on exertion. No chronic cough or sputum production. No chest pain. No wheezing. She does note increased shortness of breath on dialysis and when her dialysis schedule was changed for the holiday week. She has been trying to wean her oxygen down. She is currently using 2 L. Self monitored SpO2's ranging in the mid 90s. She was asking about possible Sheridan valve for her COPD. DATA: Imaging / Diagnostic Studies: DATE OF EXAM: May 10 2024 1:23PM [facility] 0541 - CT CHEST WO IVCON / PROCEDURE REASON: Lung nodules CLINICAL HISTORY: Lung nodules Comparison: 11/03/2023 and 05/25/2023 CT RESULT: Limitations: None. Lines, tubes, and devices: Central venous catheter in place. Lung parenchyma and airways: Linear indeterminate density at both lung bases is likely atelectasis or fibrosis. Right lung groundglass opacity of 2.1 x 1.2 cm on image 108 is stable. 0.8 cm nodule within the right lung on image 43 is stable. Left lung subpleural nodule of 0.7 cm on image 36 is stable Stable 5 mm left lung nodule on image 57. Stable 4 mm left lower lobe nodule on image 146.. Several calcified granulomata The central airways are patent. Pleural space: Trace right pleural effusion Lower neck, lymph nodes, and mediastinum: The imaged thyroid gland is normal. No lymphadenopathy in the supraclavicular, axillary, mediastinal, or hilar regions. Heart, pericardium, and thoracic vessels: The thoracic aorta and main pulmonary artery are normal in caliber. The cardiac chambers are normal in size. Mild coronary artery atherosclerotic calcifications are noted, although the study is not optimized for coronary assessment. No pericardial effusion or thickening. Bones and soft tissues: No destructive bone lesion. Chest wall is unremarkable. Upper abdomen: No abnormality in the imaged upper abdomen. Localizer images: No additional findings. IMPRESSION: Stable pulmonary nodules and groundglass opacities. No new mass or adenopathy Continued follow-up in [address] 11/2023: Chest CT 07/2023: PAST MEDICAL HISTORY Diagnosis Date Age-related osteoporosis without current pathological fracture 08/28/2021 EARNEST (acute kidney injury) ([facility]) EARNEST (acute kidney injury) ([facility]) Anemia requiring transfusions 06/15/2023 Antibiotic-associated diarrhea 07/14/2023 Asthma Benign essential tremor Chronic obstructive pulmonary disease ([facility]) 07/25/2012 Chronic respiratory failure with hypoxia ([facility]) 11/05/2022 Coagulation defect, unspecified ([facility]) 08/25/2023 COPD (chronic obstructive pulmonary disease) ([facility]) 07/25/2012 FEV1 0.84L (32%), 10/18/2014 Coronary artery disease 08/19/2023 DDD (degenerative disc disease), cervical 08/15/2015 Empyema ([facility]) 07/09/2023 Environmental allergies Wheezes with hay or dust ESRD (end stage renal disease) ([facility]) Essential and other specified forms of tremor 11/02/2007 Benign essential -- started primidone 06/03/09, Dr. Nguyễn Essential tremor 11/02/2007 Benign essential -- started primidone 06/03/09, Dr. Nguyễn Gastrointestinal hemorrhage associated with peptic ulcer 08/02/2023 Hemodialysis catheter malfunction ([facility]) 08/19/2023 History of colon polyps 2009 Tubular adenoma. Hypertension Hypoxemia 05/01/2021 Post Covid pneumonia. Irritable bowel syndrome Lung nodule Migraine headache Improved with primidone Multiple duodenal ulcers 06/30/2023 NSTEMI (non-ST elevated myocardial infarction) ([facility]) 07/20/2023 Parapneumonic effusion Pneumonia due to COVID-19 virus 05/01/2021 Pneumonia due to infectious organism 06/30/2023 Pulmonary emphysema ([facility]) 07/19/2023 Scoliosis Shock, septic ([facility]) 07/11/2023 Snoring Tobacco use disorder Quit 03/04/2015. Unspecified gastritis and gastroduodenitis without mention of hemorrhage 02/09/2010 Small ulcer on EGD 2009 Upper GI bleed 02/09/2010 ALLERGIES Allergen Reactions Keflex [Cephalexin] Intolerance Tachycardia, palpitations. Vancomycin Hives atorvastatin (LIPITOR) 40 mg tablet Take 1 tablet by mouth daily at bedtime. For cholesterol. montelukast (SINGULAIR) 10 mg tablet Take 1 tablet by mouth daily at bedtime. pantoprazole DR (PROTONIX) 40 mg tablet Take 1 tablet by mouth two times a day before meals. (Patient taking differently: Take 40 mg by mouth once daily.) isosorbide mononitrate ER (IMDUR) 60 mg 24 hr tablet Take 1 tablet by mouth once daily. busPIRone (BUSPAR) 10 mg tablet Take 1 tablet by mouth two times a day. sucralfate (CARAFATE) 1 gram tablet TAKE 1 TABLET BY MOUTH THREE TIMES DAILY at 7 AM, 11 AM and 4 pm (Patient taking differently: Take 1 g by mouth two times a day. TAKE 1 TABLET BY MOUTH THREE TIMESDAILY at 7 AM, 11 AM and 4 pm) qbwvnupvoo-hnqkrvfr-czftipqdza (BREZTRI) 160-9-4.8 mcg/actuation HFA aerosol inhaler Inhale 2 Puffsas instructed two times a day. fluticasone (FLONASE) 50 mcg/actuation nasal spray Use 2 Sprays in each nostril once daily. Rinse mouth after use. ondansetron orally disintegrating (ZOFRAN ODT) 4 mg disintegrating tablet Take 1 tablet by mouth every 8 hours as needed for nausea/vomiting. OXYGEN, HOME THERAPY, Inhale 3 L/min as instructed as directed. 3L NC continuous, up to 4L with exertion acetaminophen (TYLENOL) 325 mg tablet Take 650 mg by mouth every 6 hours as needed. nitroglycerin sublingual (NITROSTAT) 0.4 mg SL tablet Dissolve 0.4 mg under the tongue every 5 minutes as needed for chest pain. polyethylene glycol 3350 (MIRALAX) 17 gram/dose powder Take 17 g by mouth as needed for constipation. Dissolve dose in 4 - 8 ounces of liquid and take as directed. ipratropium-albuterol (DUONEB) 0.5 mg-3 mg(2.5 mg base)/3 mL nebu Inhale 3 mL as instructed every 4hours as needed for wheezing/shortness of breath. (Patient taking differently: Inhale 3 mL as instructed every 6 hours as needed for wheezing/shortness of breath.) albuterol HFA (PROAIR HFA) 90 mcg/actuation inhaler Inhale 2 Puffs as instructed every 4 hours as needed for wheezing/shortness of breath. Social History Tobacco Use Smoking status: Former Current packs/day: 0.00 Average packs/day: 0.5 packs/day for 42.0 years (21.0 ttl pk-yrs) Types: Cigarettes Start date: 1974 Quit date: 05/23/2016 Years since quittin.0 Smokeless tobacco: Never Tobacco comments: Resumed short period. Quit for good 05/2016. Vaping Use Vaping status: Never Used Substance Use Topics Alcohol use: No Drug use: No FAMILY HISTORY Adopted: Yes Problem Relation Age of Onset Scoliosis Daughter Natural daughter. PAST SURGICAL HISTORY Procedure Laterality Date ARTHROPLASTY TOTAL SHOULDER Right 02/2018 [facility]. Garo Stanford MD BREAST BIOPSY Left 30 [...] LAPS SURG CHOLECYSTECTOMY W/CHOLANGIOGRAPHY 12/12/2007 Normal IOC LEFT HEART CATH,PERCUTANEOUS 08/03/2023 mild CAD PAST SURGICAL HISTORY OF multiple several tubal pregnancies, tubes both removed over several surgeries PAST SURGICAL HISTORY OF 1993 left inguinal hernia with mesh PAST SURGICAL HISTORY OF 1989 Hemorrhoid surgery x2 TONSILLECTOMY & ADENOIDECTOMY <AGE 13 PMH, Social history, family history and surgical history reviewed and updated in EMR REVIEW OF SYSTEMS: CONSTITUTIONAL: No fevers, chills, nightsweats, unintended weight loss CARDIOVASCULAR: No chest pain, palpitations, orthopnea, edema. PULM: No dyspnea, unexplained cough. GI: No dysphagia/odynophagia, problematic reflux. NEURO: Ambulating with a cane MUSC-SKEL: Shoulder pain PSY: No concerns regarding depression, anxiety INTEGUMENTARY: No new skin changes PHYSICAL EXAMINATION: BP 128/62 Pulse 95 Resp 17 Wt 148 lb (67.1kg) SpO2 93% General Appearance: Age-appropriate female, NAD. Eyes: Sclera, conjunctiva normal. Oropharynx: No oral lesions or thrush. Neck: No JVD, no masses, no adenopathy. Lungs: Not labored, normal to percussion, no wheezes or crackles. Heart: Regular rate and rhythm, no murmurs gallops. Extremities: No edema or clubbing. Assessment/Plan: Groundglass opacity on chest imaging -Groundglass opacities stable although highly suspicious for adenocarcinoma in situ. Patient is nota surgical candidate based on her comorbidities and severity of her underlying COPD. PET scan unlikely to be helpful -She would be a candidate for possible empiric SBRT -Follow-up CT 6 months Severe COPD, GOLD 3 -Continue abstinence from tobacco -Continue current triple inhaler therapy -We spoke about criteria for Sheridan valve. She would need updated full pulmonary function testing to assess for hyperinflation and air trapping and reassess diffusing capacity. The suspicious right upper lobe lesion cannot be in the target area for valve placement. She is declining updated PFTs andevaluation Chronic hypoxemic respiratory failure -Okay to decrease oxygen to 2 L. Continue self monitored SpO2 with target range 90 to 93% Former cigarette smoker -Continue abstinence End-stage renal disease on hemodialysis -Hemodialysis Tuesday Magali Nieves MD [facility] [place] [facility] NoteHNO ID: [id number] Author: MAGALI NIEVES MD Service: ? Author Type: Physician Type: Progress Notes Filed: 06/07/2024 15:35 Note Text: . [facility] [place] Note Patient name: Sneha Cardenas PCP: Julio Draper MD CC: Follow up COPD HPI: Sneha Cardenas 69 year old female former 20 pack year smoker with PMH significant for tremors, HTN, COVID PNA 2020, chronic hypoxemic respiratory failure, AF (not anticoagulated due to GIB), severe COPD/emphysema, multiple nodules on chest imaging and 2 cm RUL GGO, history notable for complicated parapneumonic effusion requiring chest tube, EARNEST/ATN and now ESRD requiring dialysis. Current therapy with Trelegy Ellipta. Presents for follow-up her recent chest CT. Having trouble with cramping with dialysis. She is somewhat disheartened by her slow recovery as it has been almost a year since her illness. From a pulmonary standpoint she has dyspnea on exertion. No chronic cough or sputum production. No chest pain. No wheezing. She does note increased shortness of breath on dialysis and when her dialysis schedule was changed for the holiday week. She has been trying to wean her oxygen down. Sheis currently using 2 L. Self monitored SpO2's ranging in the mid 90s. She was asking about possible Sheridan valve for her COPD. DATA: Imaging / Diagnostic Studies: DATE OF EXAM: May 10 2024 1:23PM [facility] 0541 - CT CHEST WO IVCON / PROCEDURE REASON: Lung nodules CLINICAL HISTORY: Lung nodules Comparison: 11/03/2023 and 05/25/2023 CT RESULT: Limitations: None. Lines, tubes, and devices: Central venous catheter in place. Lung parenchyma and airways: Linear indeterminate density at both lung bases is likely atelectasis or fibrosis. Right lung groundglass opacity of 2.1 x 1.2 cm on image 108 is stable. 0.8 cm nodule within the right lung on image 43 is stable. Left lung subpleural nodule of 0.7 cm on image 36 is stable Stable 5 mm left lung nodule on image 57. Stable 4 mm left lower lobe nodule on image 146.. Several calcified granulomata The central airways are patent. Pleural space: Trace right pleural effusion Lower neck, lymph nodes, and mediastinum: The imaged thyroid gland is normal. No lymphadenopathy in the supraclavicular, axillary, mediastinal, or hilar regions. Heart, pericardium, and thoracic vessels: The thoracic aorta and main pulmonary artery are normal in caliber. The cardiac chambers are normal in size. Mild coronary artery atherosclerotic calcifications are noted, although the study is not optimized for coronary assessment. No pericardial effusion or thickening. Bones and soft tissues: No destructive bone lesion. Chest wall is unremarkable. Upper abdomen: No abnormality in the imaged upper abdomen. Localizer images: No additional findings. IMPRESSION: Stable pulmonary nodules and groundglass opacities. No new mass or adenopathy Continued follow-up in [address] 11/2023: Chest CT 07/2023: PAST MEDICAL HISTORY Diagnosis Date Age-related osteoporosis without current pathological fracture 08/28/2021 EARNEST (acute kidney injury) ([facility]) EARNEST (acute kidney injury) ([facility]) Anemia requiring transfusions 06/15/2023 Antibiotic-associated diarrhea 07/14/2023 Asthma Benign essential tremor Chronic obstructive pulmonary disease ([facility]) 07/25/2012 Chronic respiratory failure with hypoxia ([facility]) 11/05/2022 Coagulation defect, unspecified ([facility]) 08/25/2023 COPD (chronic obstructive pulmonary disease) ([facility]) 07/25/2012 FEV1 0.84L (32%), 10/18/2014 Coronary artery disease 08/19/2023 DDD (degenerative disc disease), cervical 08/15/2015 Empyema ([facility]) 07/09/2023 Environmental allergies Wheezes with hay or dust ESRD (end stage renal disease) ([facility]) Essential and other specified forms of tremor 11/02/2007 Benign essential -- started primidone 06/03/09, Dr. Nguyễn Essential tremor 11/02/2007 Benign essential -- started primidone 06/03/09, Dr. Nguyễn Gastrointestinal hemorrhage associated with peptic ulcer 08/02/2023 Hemodialysis catheter malfunction ([facility]) 08/19/2023 History of colon polyps 2010 Tubular adenoma. Hypertension Hypoxemia 05/01/2021 Post Covid pneumonia. Irritable bowel syndrome Lung nodule Migraine headache Improved with primidone Multiple duodenal ulcers 06/30/2023 NSTEMI (non-ST elevated myocardial infarction) ([facility]) 07/20/2023 Parapneumonic effusion Pneumonia due to COVID-19 virus 05/01/2021 Pneumonia due to infectious organism 06/30/2023 Pulmonary emphysema ([facility]) 07/19/2023 Scoliosis Shock, septic ([facility]) 07/11/2023 Snoring Tobacco use disorder Quit 03/04/2015. Unspecified gastritis and gastroduodenitis without mention of hemorrhage 02/09/2010 Small ulcer on EGD 2009 Upper GI bleed 02/09/2010 ALLERGIES Allergen Reactions Keflex [Cephalexin] Intolerance Tachycardia, palpitations. Vancomycin Hives atorvas (more content not included)...[facility]12-03-2024 Note [facility]11-21-2024 Evaluation note* Diagnosis Onset Date Resolution Status Admit Date End-stage renal disease (ESRD) inactive May 24, 2 024 1:27pm End-stage renal disease (ESRD) inactive June 05 8:53am End-stage renal disease (ESRD) inactive June 19, 2 024 2:19pm Respiratory syncytial virus bronchitis acute July 08 5:59am COPD exacerbation resolved July 08, 2024 5:59am Hypokalemia resolved July 08, 2024 5:59am End-stage renal disease (ESRD) inactive July 08 5:59am Pulmonary nodule inactive July 08, 2024 5:59am Acute respiratory failure with hypoxia resolved July 23 12:31pm Anemia of chronic disease inactive July 23, 2024 12:31pm End stage chronic kidney disease inactive July 23 12:31pm End-stage renal disease (ESRD) inactive July 23 12:31pm Pneumonia inactive July 23, 2024 12:31pm Sepsis inactive July 23, 2024 12:31pm Acute exacerbation of chroni c obstructive pulmonary disease (COPD) resolved August 06 7:25am End stage renal disease on dialysis inactive August 06 7:25am Pulmonary nodule inactive August 06, 2024 7:25am ESRD (end stage renal disease) on dialysis acute September 06, 2024 7:01am [facility] Work Phone: [phone]) 761-657611-12-2024 NoteHNO ID: [id number] Author: JULIO DRAPER MD Service: ? Author Type: Physician Type: Progress Notes Filed: 05/16/2024 00:46 Note Text: This note was created using [employer]. Subjective Patient presents with: Recheck: 6 months Sneha Cardenas is a 69 year old female here with Cash for follow up. Her main concern was severe muscle cramping after dialysis She had been to the ER for this and prescribed valium, which she finished taking sparingly. Cramps were mainly in the upper arms and she had Cash massage her arms for relief, in addition to acetaminophen. Review of Systems Constitutional: Negative for fever. Respiratory: Positive for shortness of breath. Cardiovascular: Negative for chest pain and leg swelling. Musculoskeletal: Positive for myalgias. Negative for arthralgias. Neurological: Negative for weakness and numbness. ACTIVE PROBLEM LIST Essential Tremor Environmental Allergies Chronic Obstructive Pulmonary Disease (Hcc) Primary Hypertension Hyperlipidemia Age-Related Osteoporosis Without Current Pathological Fracture Lung Nodule Chronic Respiratory Failure With Hypoxia (Hcc) Duodenal Ulcer Paroxysmal Atrial Fibrillation (Hcc) Anemia Requiring Transfusions Dysphagia Former Smoker Nstemi (Non-St Elevated Myocardial Infarction) ([facility]cc) Pleural Effusion Malnutrition of Mild Degree (Hcc) Esrd (End Stage Renal Disease) ([facility]) Coronary Artery Disease Anxiety About Health Social History Tobacco Use Smoking status: Former Current packs/day: 0.00 Average packs/day: 0.5 packs/day for 42.0 years (21.0 ttl pk-yrs) Types: Cigarettes Start date: 1974 Quit date: 05/23/2016 Years since quittin.9 Smokeless tobacco: Never Tobacco comments: Resumed short period. Quit for good 05/2016. Vaping Use Vaping status: Never Used Substance Use Topics Alcohol use: No Drug use: No Current Outpatient Medications Medication Sig atorvastatin (LIPITOR) 40 mg tablet Take 1 tablet by mouth daily at bedtime. For cholesterol. montelukast (SINGULAIR) 10 mg tablet Take 1 tablet by mouth daily at bedtime. pantoprazole DR (PROTONIX) 40 mg tablet Take 1 tablet by mouth two times a day before meals. isosorbide mononitrate ER (IMDUR) 60 mg 24 hr tablet Take 1 tablet by mouth once daily. busPIRone (BUSPAR) 10 mg tablet Take 1 tablet by mouth two times a day. sucralfate (CARAFATE) 1 gram tablet TAKE 1 TABLET BY MOUTH THREE TIMES DAILY at 7 AM, 11 AM and 4 pm hobtfqqdyx-dfiuduyq-ebrhpxqfqf (BREZTRI) 160-9-4.8 mcg/actuation HFA aerosol inhaler Inhale 2 Puffs as instructed two times a day. fluticasone (FLONASE) 50 mcg/actuation nasal spray Use 2 Sprays in each nostril once daily. Rinse mouth after use. ondansetron orally disintegrating (ZOFRAN ODT) 4 mg disintegrating tablet Take 1 tablet by mouth every 8 hours as needed for nausea/vomiting. OXYGEN, HOME THERAPY, Inhale 3 L/min as instructed as directed. 3L NC continuous, up to 4L with exertion acetaminophen (TYLENOL) 325 mg tablet Take 650 mg by mouth every 6 hours as needed. nitroglycerin sublingual (NITROSTAT) 0.4 mg SL tablet Dissolve 0.4 mg under the tongue every 5 minutes as needed for chest pain. polyethylene glycol 3350 (MIRALAX) 17 gram/dose powder Take 17 g by mouth as needed for constipation. Dissolve dose in 4 - 8 ounces of liquid and take as directed. albuterol HFA (PROAIR HFA) 90 mcg/actuation inhaler Inhale 2 Puffs as instructed every 4 hours as needed for wheezing/shortness of breath. ipratropium-albuterol (DUONEB) 0.5 mg-3 mg(2.5 mg base)/3 mL nebu Inhale 3 mL as instructed every 4 hours as needed for wheezing/shortness of breath. (Patient taking differently: Inhale 3 mL as instructed every 6 hours as needed for wheezing/shortness of breath.) predniSONE (DELTASONE) 20 mg tablet Take two daily for 5 days. diazePAM (VALIUM) 2 mg tablet Take 2 mg by mouth every 8 hours as needed. No current facility-administered medications for this visit. Objective BP 140/62 Pulse 94 Temp 36.7 ?C (98.1 ?F) (Temporal) Resp 18 Wt 66 kg (145 lb 8.1 oz) SpO2 94% BMI 25.37 kg/m? Physical Exam Constitutional: General: She is not in acute distress. Appearance: She is not ill-appearing or diaphoretic. HENT: Head: Normocephalic. Cardiovascular: Rate and Rhythm: Normal rate and regular rhythm. Heart sounds: No murmur heard. No gallop. Pulmonary: Effort: Pulmonary effort is normal. Breath sounds: Normal breath sounds. Musculoskeletal: General: No tenderness. Right lower leg: No edema. Left lower leg: No edema. Neurological: General: No focal deficit present. Mental Status: She is alert. Sensory: No sensory deficit. Motor: Tremor present. Gait: Gait abnormal. Assessment and Plan 1. Muscle spasm - ICD9: 728.85, ICD10: M62.838 (primary diagnosis) Shared medical decision making was done. We reviewed risks of diazepam and baclofen. We agreed to try th (more content not included)...[facility]11-12-2024 History of Present illness Narrative* Julio Draper MD - 05/15/2024 10:05 AM EST This note was created using [employer]. Subjective Patient presents with: Recheck: 6 months Sneha Cardenas is a 69 year old female here with Cash for follow up. Her main concern was severe muscle cramping after dialysis She had been to the ER for this and prescribed valium, which she finished taking sparingly. Cramps were mainly in the upper arms and she had Cash massage her arms for relief, in addition to acetaminophen. Review of Systems Constitutional: Negative for fever. Respiratory: Positive for shortness of breath. Cardiovascular: Negative for chest pain and leg swelling. Musculoskeletal: Positive for myalgias. Negative for arthralgias. Neurological: Negative for weakness and numbness. ACTIVE PROBLEM LIST Essential Tremor Environmental Allergies Chronic Obstructive Pulmonary Disease (Hcc) Primary Hypertension Hyperlipidemia Age-Related Osteoporosis Without Current Pathological Fracture Lung Nodule Chronic Respiratory Failure With Hypoxia (Hcc) Duodenal Ulcer Paroxysmal Atrial Fibrillation (Hcc) Anemia Requiring Transfusions Dysphagia Former Smoker Nstemi (Non-St Elevated Myocardial Infarction) (Hcc) Pleural Effusion Malnutrition of Mild Degree (Hcc) Esrd (End Stage Renal Disease) (Hcc) Coronary Artery Disease Anxiety About Health Social History Tobacco Use Smoking status: Former Current packs/day: 0.00 Average packs/day: 0.5 packs/day for 42.0 years (21.0 ttl pk-yrs) Types: Cigarettes Start date: 1974 Quit date: 05/23/2016 Years since quittin.9 Smokeless tobacco: Never Tobacco comments: Resumed short period. Quit for good 05/2016. Vaping Use Vaping status: Never Used Substance Use Topics Alcohol use: No Drug use: No Current Outpatient Medications Medication Sig atorvastatin (LIPITOR) 40 mg tablet Take 1 tablet by mouth daily at bedtime. For cholesterol. montelukast (SINGULAIR) 10 mg tablet Take 1 tablet by mouth daily at bedtime. pantoprazole DR (PROTONIX) 40 mg tablet Take 1 tablet by mouth two times a day before meals. isosorbide mononitrate ER (IMDUR) 60 mg 24 hr tablet Take 1 tablet by mouth once daily. busPIRone (BUSPAR) 10 mg tablet Take 1 tablet by mouth two times a day. sucralfate (CARAFATE) 1 gram tablet TAKE 1 TABLET BY MOUTH THREE TIMES DAILY at 7 AM, 11 AM and 4 pm alngrivosd-mzvcregd-ruuikqigso (BREZTRI) 160-9-4.8 mcg/actuation HFA aerosol inhaler Inhale 2 Puffsas instructed two times a day. fluticasone (FLONASE) 50 mcg/actuation nasal spray Use 2 Sprays in each nostril once daily. Rinse mouth after use. ondansetron orally disintegrating (ZOFRAN ODT) 4 mg disintegrating tablet Take 1 tablet by mouth every 8 hours as needed for nausea/vomiting. OXYGEN, HOME THERAPY, Inhale 3 L/min as instructed as directed. 3L NC continuous, up to 4L with exertion acetaminophen (TYLENOL) 325 mg tablet Take 650 mg by mouth every 6 hours as needed. nitroglycerin sublingual (NITROSTAT) 0.4 mg SL tablet Dissolve 0.4 mg under the tongue every 5 minutes as needed for chest pain. polyethylene glycol 3350 (MIRALAX) 17 gram/dose powder Take 17 g by mouth as needed for constipation. Dissolve dose in 4 - 8 ounces of liquid and take as directed. albuterol HFA (PROAIR HFA) 90 mcg/actuation inhaler Inhale 2 Puffs as instructed every 4 hours as needed for wheezing/shortness of breath. ipratropium-albuterol (DUONEB) 0.5 mg-3 mg(2.5 mg base)/3 mL nebu Inhale 3 mL as instructed every 4hours as needed for wheezing/shortness of breath. (Patient taking differently: Inhale 3 mL as instructed every 6 hours as needed for wheezing/shortness of breath.) predniSONE (DELTASONE) 20 mg tablet Take two daily for 5 days. diazePAM (VALIUM) 2 mg tablet Take 2 mg by mouth every 8 hours as needed. No current facility-administered medications for this visit. Objective BP 140/62 Pulse 94 Temp 36.7 C (98.1 F) (Temporal) Resp 18 Wt 66 kg (145 lb 8.1 oz) SpO2 94% BMI 25.37 kg/m Physical Exam Constitutional: General: She is not in acute distress. Appearance: She is not ill-appearing or diaphoretic. HENT: Head: Normocephalic. Cardiovascular: Rate and Rhythm: Normal rate and regular rhythm. Heart sounds: No murmur heard. No gallop. Pulmonary: Effort: Pulmonary effort is normal. Breath sounds: Normal breath sounds. Musculoskeletal: General: No tenderness. Right lower leg: No edema. Left lower leg: No edema. Neurological: General: No focal deficit present. Mental Status: She is alert. Sensory: No sensory deficit. Motor: Tremor present. Gait: Gait abnormal. Assessment and Plan 1. Muscle spasm - ICD9: 728.85, ICD10: M62.838 (primary diagnosis) Shared medical decision making was done. We reviewed risks of diazepam and baclofen. We agreed to try this medication. Take before and after dialysis on dialysis days. - CYCLOBENZAPRINE 10 MG TABLET 2. Primary hypertension - ICD9: 401.9, ICD10: I10 - Improving control. Continue current 3. ESRD (end stage renal disease) (HCC) - ICD9: 585.6, ICD10: N18.6 - Dialysis per nephrology. 4. Chronic obstructive pulmonary disease with acute exacerbation (HCC) - ICD9: 491.21, ICD10: J44.1 - stable. Continue treatments. 5. Age-related osteoporosis without current pathological fracture - ICD9: 733.01, ICD10: M81.0 - Reviewed the need for Calcium and Vitamin D supplements and weight bearing exercise as tolerated - DXA-AXIAL SKELETON - She did not recall being prescribed alendronate back in 2021. It was marked discontinued after 2-3 months for reason. Julio Draper MD [facility]* Magali Casey MA - 05/15/2024 9:52 AM EST [facility] Nurse Note* Magali Casey MA - 05/15/2024 9:52 AM EST [facility]11[facility] History of Present illness Narrative* Jacinto Blanchard RT(R) - 05/10/2024 1:00 PM EST Radiology Service Progress Note PATIENT NAME: Sneha Cardenas DATE OF SERVICE: May 10, 2024 TIME: 2:31 PM PATIENT IDENTITY VERIFICATION COMPLETED USING TWO (2) IDENTIFIERS: Name and Date of confirmedby patient verbally. FALL SCREENING: Has the patient had 2 falls in the last year or 1 fall with injury or currently using an Ambulatory Assistive Device (Walker, Cane, Wheelchair, Crutches, etc.)? No PATIENT GENDER DATA: Female. status: : No status: NO. PATIENT RELEVANT IMPLANT DATA REVIEWED: Yes PATIENT PRESENTS WITH AN IMPLANTABLE OR ATTACHED PENSION ADMINISTRATOR: No RADIOLOGY DEPARTMENT: CT; Exam(s) Completed: Chest PERIPHERAL IV DATA: Not applicable SIGNED BY: RT Burke(Everardo) May 10, 2024 2:31 PM documented in this encounterP[facility]11-07-2024 NoteHNO ID: [id number] Author: JACINTO BLANCHARD RT(R) Service: ? Author Type: Liquor Department Manager Type: Progress Notes Filed: 05/10/2024 14:31 Note Text: Radiology Service Progress Note PATIENT NAME: Sneha Cardenas DATE OF SERVICE: May 10, 2024 TIME: 2:31 PM PATIENT IDENTITY VERIFICATION COMPLETED USING TWO (2) IDENTIFIERS: Name and Date of confirmed by patient verbally. FALL SCREENING: Has the patient had 2 falls in the last year or 1 fall with injury or currently using an Ambulatory Assistive Device (Walker, Cane, Wheelchair, Crutches, etc.)? No PATIENT GENDER DATA: Female. status: : No status: NO. PATIENT RELEVANT IMPLANT DATA REVIEWED: Yes PATIENT PRESENTS WITH AN IMPLANTABLE OR ATTACHED PENSION ADMINISTRATOR: No RADIOLOGY DEPARTMENT: CT; Exam(s) Completed: Chest PERIPHERAL IV DATA: Not applicable SIGNED BY: RT Burke(R) May 10, 2024 2:31 [facility]10-14-2024 Telephone encounter Note* Telephone Encounter - Annette Farr LPN - 04/16/2024 3:59 PM EDT Pt called concerned she did not hear from her muleser. Pt informed she was just sent a [employer] message with recommendations from Dr. Nieves. Annette Farr LPN [facility]10-14[facility] Miscellaneous Notes* Telephone Encounter - Annette Farr LPN - 04/16/2024 3:59 PM EDT Pt called concerned she did not hear from her muleser. Pt informed she was just sent a [employer] message with recommendations from Dr. Nieves. Annette Farr LPN documented in [facility] encounterP[facility]10-[facility]24 Telephone encounter Note * Telephone Encounter - Annette Gonzalez MA - 04/16/2024 11:21 AM EDT Pt calling to report that she has been very short of breath x 1 week. ER last Tuesday at [facility] with spasms due to dialysis. She checked out ok. Today she had to do a breathing treatment and then dialysis. Dialysis did not help with the crackling in her chest or SOB. Please review and advise. Annette Gonzalez MA [facility] Miscellaneous Notes* Telephone Encounter - Annette Gonzalez MA - 04/16/2024 11:21 AM EDT Pt calling to report that she has been very short of breath x 1 week. ER last Tuesday at [facility] with spasms due to dialysis. She checked out ok. Today she had to do a breathing treatment and then dialysis. Dialysis did not help with the crackling in her chest or SOB. Please review and advise. Annette Gonzaelz MA documented in this encounterP[facility]10-10-2024 NoteHNO ID: [id number] Author: JULIO DRAPER MD Service: ? Author Type: Physician Type: Progress Notes Filed: 04/12/2024 11:24 Note Text: This note was created using [employer]. Subjective Patient presents with: ER F/U Sneha Cardenas is a 68 year old female who was in the ER 04/09/24 for left arm and chest muscle spasms in the setting of dialysis. She also had spasms of her lower extremities. She's been having issues with dialysis and did not seem to tolerate too much volume with hypotension and cramps. She was also in the ER last month for similar issues. Her metoprolol and amlodipine were discontinued this week, in coordination with her telecommunicator. Dyspnea was worse and will be evaluated by pulmonary. Hopefully dyspnea will improve off beta vincenzo. She was prescribed diazepam, but she preferred to avoid the medication due to sedation. Review of Systems Constitutional: Positive for fatigue. Negative for chills, diaphoresis and fever. Respiratory: Positive for shortness of breath. Negative for cough and wheezing. Cardiovascular: Negative for chest pain, palpitations and leg swelling. Gastrointestinal: Negative for diarrhea, nausea and vomiting. Musculoskeletal: Positive for gait problem and myalgias. Neurological: Positive for weakness. ACTIVE PROBLEM LIST Essential Tremor Environmental Allergies Chronic Obstructive Pulmonary Disease (Hcc) Primary Hypertension Hyperlipidemia Age-Related Osteoporosis Without Current Pathological Fracture Lung Nodule Chronic Respiratory Failure With Hypoxia (Hcc) Duodenal Ulcer Paroxysmal Atrial Fibrillation (Hcc) Anemia Requiring Transfusions Dysphagia Former Smoker Nstemi (Non-St Elevated Myocardial Infarction) (Hcc) Pleural Effusion Malnutrition of Mild Degree (Hcc) Esrd (End Stage Renal Disease) (Hcc) Coronary Artery Disease Anxiety About Health Social History Tobacco Use Smoking status: Former Current packs/day: 0.00 Average packs/day: 0.5 packs/day for 42.0 years (21.0 ttl pk-yrs) Types: Cigarettes Start date: 1974 Quit date: 05/23/2016 Years since quittin.8 Smokeless tobacco: Never Tobacco comments: Resumed short period. Quit for good 05/2016. Vaping Use Vaping status: Never Used Substance Use Topics Alcohol use: No Drug use: No Current Outpatient Medications Medication Sig diazePAM (VALIUM) 2 mg tablet Take 2 mg by mouth every 8 hours as needed. atorvastatin (LIPITOR) 40 mg tablet Take 1 tablet by mouth daily at bedtime. For cholesterol. montelukast (SINGULAIR) 10 mg tablet Take 1 tablet by mouth daily at bedtime. pantoprazole DR (PROTONIX) 40 mg tablet Take 1 tablet by mouth two times a day before meals. isosorbide mononitrate ER (IMDUR) 60 mg 24 hr tablet Take 1 tablet by mouth once daily. busPIRone (BUSPAR) 10 mg tablet Take 1 tablet by mouth two times a day. sucralfate (CARAFATE) 1 gram tablet TAKE 1 TABLET BY MOUTH THREE TIMES DAILY at 7 AM, 11 AM and 4 pm mzmoewqzjj-oxtyfckc-louddbvwrc (BREZTRI) 160-9-4.8 mcg/actuation HFA aerosol inhaler Inhale 2 Puffs as instructed two times a day. fluticasone (FLONASE) 50 mcg/actuation nasal spray Use 2 Sprays in each nostril once daily. Rinse mouth after use. ondansetron orally disintegrating (ZOFRAN ODT) 4 mg disintegrating tablet Take 1 tablet by mouth every 8 hours as needed for nausea/vomiting. OXYGEN, HOME THERAPY, Inhale 3 L/min as instructed as directed. 3L NC continuous, up to 4L with exertion acetaminophen (TYLENOL) 325 mg tablet Take 650 mg by mouth every 6 hours as needed. nitroglycerin sublingual (NITROSTAT) 0.4 mg SL tablet Dissolve 0.4 mg under the tongue every 5 minutes as needed for chest pain. polyethylene glycol 3350 (MIRALAX) 17 gram/dose powder Take 17 g by mouth as needed for constipation. Dissolve dose in 4 - 8 ounces of liquid and take as directed. albuterol HFA (PROAIR HFA) 90 mcg/actuation inhaler Inhale 2 Puffs as instructed every 4 hours as needed for wheezing/shortness of breath. ipratropium-albuterol (DUONEB) 0.5 mg-3 mg(2.5 mg base)/3 mL nebu Inhale 3 mL as instructed every 4 hours as needed for wheezing/shortness of breath. (Patient taking differently: Inhale 3 mL as instructed every 6 hours as needed for wheezing/shortness of breath.) No current facility-administered medications for this visit. Objective BP 124/62 (BP Site: Right Arm, BP Position: Sitting, BP Cuff Size: Large Adult) Pulse 96 Temp 36.8 ?C (98.2 ?F) (Temporal) Resp 18 Wt 63.4 kg (139 lb 12.4 oz) SpO2 94% BMI 24.37 kg/m? Physical Exam Constitutional: General: She is not in acute distress. Appearance: She is ill-appearing. Comments: Wheelchair bound, on supplemental O2. Eyes: Conjunctiva/sclera: Conjunctivae normal. Cardiovascular: Rate and Rhythm: Normal rate and regular rhythm. Heart sounds: No murmur heard. No gallop. Pulmonary: Effort: Respiratory distress present. Breat (more content not included)...[facility]10-10-[facility] History of Present illness Narrative* Julio Draper MD - 04/12/2024 10:56 AM EDT This note was created using NoteWriter. Subjective Patient presents with: ER F/U Sneha Cardenas is a 68 year old female who was in the ER 04/09/24 for left arm and chest muscle spasms in the setting of dialysis. She also had spasms of her lower extremities. She's been having issues with dialysis and did not seem to tolerate too much volume with hypotension and cramps. She was also in the ER last month for similar issues. Her metoprolol and amlodipine were discontinued this week, in coordination with her telecommunicator. Dyspnea was worse and will be evaluated by pulmonary. Hopefully dyspnea will improve off beta vincenzo. She was prescribed diazepam, but she preferred to avoid the medication due to sedation. Review of Systems Constitutional: Positive for fatigue. Negative for chills, diaphoresis and fever. Respiratory: Positive for shortness of breath. Negative for cough and wheezing. Cardiovascular: Negative for chest pain, palpitations and leg swelling. Gastrointestinal: Negative for diarrhea, nausea and vomiting. Musculoskeletal: Positive for gait problem and myalgias. Neurological: Positive for weakness. ACTIVE PROBLEM LIST Essential Tremor Environmental Allergies Chronic Obstructive Pulmonary Disease (Hcc) Primary Hypertension Hyperlipidemia Age-Related Osteoporosis Without Current Pathological Fracture Lung Nodule Chronic Respiratory Failure With Hypoxia (Hcc) Duodenal Ulcer Paroxysmal Atrial Fibrillation (Hcc) Anemia Requiring Transfusions Dysphagia Former Smoker Nstemi (Non-St Elevated Myocardial Infarction) (Hcc) Pleural Effusion Malnutrition of Mild Degree (Hcc) Esrd (End Stage Renal Disease) (Hcc) Coronary Artery Disease Anxiety About Health Social History Tobacco Use Smoking status: Former Current packs/day: 0.00 Average packs/day: 0.5 packs/day for 42.0 years (21.0 ttl pk-yrs) Types: Cigarettes Start date: 1974 Quit date: 05/23/2016 Years since quittin.8 Smokeless tobacco: Never Tobacco comments: Resumed short period. Quit for good 05/2016. Vaping Use Vaping status: Never Used Substance Use Topics Alcohol use: No Drug use: No Current Outpatient Medications Medication Sig diazePAM (VALIUM) 2 mg tablet Take 2 mg by mouth every 8 hours as needed. atorvastatin (LIPITOR) 40 mg tablet Take 1 tablet by mouth daily at bedtime. For cholesterol. montelukast (SINGULAIR) 10 mg tablet Take 1 tablet by mouth daily at bedtime. pantoprazole DR (PROTONIX) 40 mg tablet Take 1 tablet by mouth two times a day before meals. isosorbide mononitrate ER (IMDUR) 60 mg 24 hr tablet Take 1 tablet by mouth once daily. busPIRone (BUSPAR) 10 mg tablet Take 1 tablet by mouth two times a day. sucralfate (CARAFATE) 1 gram tablet TAKE 1 TABLET BY MOUTH THREE TIMES DAILY at 7 AM, 11 AM and 4 pm oagakiyfqk-qlkicvqd-ccedcadbtg (BREZTRI) 160-9-4.8 mcg/actuation HFA aerosol inhaler Inhale 2 Puffsas instructed two times a day. fluticasone (FLONASE) 50 mcg/actuation nasal spray Use 2 Sprays in each nostril once daily. Rinse mouth after use. ondansetron orally disintegrating (ZOFRAN ODT) 4 mg disintegrating tablet Take 1 tablet by mouth every 8 hours as needed for nausea/vomiting. OXYGEN, HOME THERAPY, Inhale 3 L/min as instructed as directed. 3L NC continuous, up to 4L with exertion acetaminophen (TYLENOL) 325 mg tablet Take 650 mg by mouth every 6 hours as needed. nitroglycerin sublingual (NITROSTAT) 0.4 mg SL tablet Dissolve 0.4 mg under the tongue every 5 minutes as needed for chest pain. polyethylene glycol 3350 (MIRALAX) 17 gram/dose powder Take 17 g by mouth as needed for constipation. Dissolve dose in 4 - 8 ounces of liquid and take as directed. albuterol HFA (PROAIR HFA) 90 mcg/actuation inhaler Inhale 2 Puffs as instructed every 4 hours as needed for wheezing/shortness of breath. ipratropium-albuterol (DUONEB) 0.5 mg-3 mg(2.5 mg base)/3 mL nebu Inhale 3 mL as instructed every 4hours as needed for wheezing/shortness of breath. (Patient taking differently: Inhale 3 mL as instructed every 6 hours as needed for wheezing/shortness of breath.) No current facility-administered medications for this visit. Objective BP 124/62 (BP Site: Right Arm, BP Position: Sitting, BP Cuff Size: Large Adult) Pulse 96 Temp 36.8 C (98.2 F) (Temporal) Resp 18 Wt 63.4 kg (139 lb 12.4 oz) SpO2 94% BMI 24.37 kg/m Physical Exam Constitutional: General: She is not in acute distress. Appearance: She is ill-appearing. Comments: Wheelchair bound, on supplemental O2. Eyes: Conjunctiva/sclera: Conjunctivae normal. Cardiovascular: Rate and Rhythm: Normal rate and regular rhythm. Heart sounds: No murmur heard. No gallop. Pulmonary: Effort: Respiratory distress present. Breath sounds: Decreased breath sounds and rhonchi present. No wheezing or rales. Abdominal: Tenderness: There is no abdominal tenderness. Musculoskeletal: Right lower leg: No edema. Left lower leg: No edema. Neurological: General: No focal deficit present. Mental Status: She is alert. Motor: Tremor present. Assessment and Plan 1. Muscle spasm - ICD9: 728.85, ICD10: M62.838 (primary diagnosis) - Dialysis related. 2. ESRD (end stage renal disease) (HCC) - ICD9: 585.6, ICD10: N18.6 - On dialysis 3 times per week. 3. Primary hypertension - ICD9: 401.9, ICD10: I10 - Controlled - Continue off medications. 4. Coronary artery disease involving the [place] coronary artery of the [place] heart without angina pectoris- ICD9: 414.01, ICD10: I25.10 - Stable. 5. Chronic obstructive pulmonary disease with acute exacerbation (HCC) - ICD9: 491.21, ICD10: J44.1 - Continue current medications. Julio Draper MD [facility]09-[facility] Telephone encounter Note * Telephone Encounter - Grace Gonsalez - 03/21/2024 12:09 PM EDT Patient is calling in asking if this has been sent to the pharmacy yet? Patient is NOW out of medication. Thank you. Grace Pichardo [facility]09-18-2024 Miscellaneous Notes* Telephone Encounter - Grace Gonsalez - 03/21/2024 12:09 PM EDT Patient is calling in asking if this has been sent to the pharmacy yet? Patient is NOW out of medication. Thank you. Grace Pichardo * Telephone Encounter - Ericka Christopher LPN - 03/19/2024 2:59 PM EDT Last saw pcp 11/11/23. Next appt with pcp 05/15/24. * Telephone Encounter - eL Phillips - 03/17/2024 8:34 AM EDT Prescription Refill Information The patient has been identified by name and date of : Yes Caregiver verified no other encounters exist for this prescription request: Yes Caregiver confirmed with patient/requestor that no other refills are due, in the near future, with this provider at this time: Yes The last office visit in the department: Does the patient have a future office visit with this provider/department: Yes Requested Prescriptions Pending Prescriptions Disp Refills atorvastatin (LIPITOR) 40 mg tablet 90 tablet 1 Sig: Take 1 tablet by mouth daily at bedtime. For cholesterol. amLODIPine (NORVASC) 5 mg tablet 90 tablet 1 Sig: Take 1 tablet by mouth every morning. montelukast (SINGULAIR) 10 mg tablet 90 tablet 1 Sig: Take 1 tablet by mouth daily at bedtime. pantoprazole DR (PROTONIX) 40 mg tablet 180 tablet 1 Sig: Take 1 tablet by mouth two times a day before meals. isosorbide mononitrate ER (IMDUR) 60 mg 24 hr tablet 90 tablet 1 Sig: Take 1 tablet by mouth once daily. busPIRone (BUSPAR) 10 mg tablet 180 tablet 1 Sig: Take 1 tablet by mouth two times a day. metoprolol tartrate, short acting, (LOPRESSOR) 25 mg tablet 180 tablet 1 Sig: Take 1 tablet by mouth every 12 hours. sucralfate (CARAFATE) 1 gram tablet 270 tablet 1 Sig: TAKE 1 TABLET BY MOUTH THREE TIMES DAILY at 7 AM, 11 AM and 4 pm Le Pichardo March 17, 2024 8:36 AM documented in this encounterP[facility]09-[facility]24 Telephone encounter Note * Telephone Encounter - Ericka Christopher LPN - 03/20/2024 8:51 AM EDT Pt brought in disability forms to be completed from [employer]. In review these forms were completed and faxed back 03/06/24 and dated and signed 03/01/24. Also same forms completed 01/28 and faxed 01/30/24. This one the Dr did forget to date. Date was noted 01/29/24 and faxed 01/30/24. ALL FAXED TO [employer] [phone]. [facility] Miscellaneous Notes* Telephone Encounter - Ericka Christopher LPN - 03/20/2024 8:51 AM EDT Pt brought in disability forms to be completed from [employer]. In review these forms were completed and faxed back 03/06/24 and dated and signed 03/01/24. Also same forms completed 01/28 and faxed 01/30/24. This one the Dr did forget to date. Date was noted 01/29/24 and faxed 01/30/24. ALL FAXED TO [employer] [phone]. documented in this encounterP[facility]09-16-2024 Telephone encounter Note * Telephone Encounter - Ericka Christopher LPN - 03/19/2024 2:59 PM EDT Last saw pcp 11/11/23. Next appt with pcp 05/15/24. [facility] Tele[facility] encounter Note* Telephone Encounter - Le Phillips - 03/17/2024 8:34 AM EDT Prescription Refill Information The patient has been identified by name and date of : Yes Caregiver verified no other encounters exist for this prescription request: Yes Caregiver confirmed with patient/requestor that no other refills are due, in the near future, with this provider at this time: Yes The last office visit in the department: Does the patient have a future office visit with this provider/department: Yes Requested Prescriptions Pending Prescriptions Disp Refills atorvastatin (LIPITOR) 40 mg tablet 90 tablet 1 Sig: Take 1 tablet by mouth daily at bedtime. For cholesterol. amLODIPine (NORVASC) 5 mg tablet 90 tablet 1 Sig: Take 1 tablet by mouth every morning. montelukast (SINGULAIR) 10 mg tablet 90 tablet 1 Sig: Take 1 tablet by mouth daily at bedtime. pantoprazole DR (PROTONIX) 40 mg tablet 180 tablet 1 Sig: Take 1 tablet by mouth two times a day before meals. isosorbide mononitrate ER (IMDUR) 60 mg 24 hr tablet 90 tablet 1 Sig: Take 1 tablet by mouth once daily. busPIRone (BUSPAR) 10 mg tablet 180 tablet 1 Sig: Take 1 tablet by mouth two times a day. metoprolol tartrate, short acting, (LOPRESSOR) 25 mg tablet 180 tablet 1 Sig: Take 1 tablet by mouth every 12 hours. sucralfate (CARAFATE) 1 gram tablet 270 tablet 1 Sig: TAKE 1 TABLET BY MOUTH THREE TIMES DAILY at 7 AM, 11 AM and 4 pm Le Pichardo March 17, 2024 8:36 AM [facility]09-10-2024 [facility] [facility] Tele[facility] encounter Note* Telephone Encounter - Ericka Christopher LPN - 03/06/2024 8:51 AM EDT 02/22/24 fax back to [employer] was forms from November. Rec'd from pt new forms. Pcp completed them they have been faxed back to the number on the form. [facility]09-03-2024 Miscellaneous Notes* Telephone Encounter - Ericka Christopher LPN - 03/06/2024 8:51 AM EDT 02/22/24 fax back to [employer] was forms from November. Rec'd from pt new forms. Pcp completed them they have been faxed back to the number on the form. [facility] Tele[facility] encounter Note * Telephone Encounter - Anushka Alexis LPN - 02/22/2024 2:30 PM EDT [employer] form refaxed. Anushka Alexis LPN [facility]08-21-2024 Miscellaneous Notes* Telephone Encounter - Anushka Alexis LPN - 02/22/2024 2:30 PM EDT [employer] form refaxed. Anushka Alexis LPN * Telephone Encounter - Estella Oliva LPN - 02/22/2024 2:05 PM EDT [employer] called, states that a form has been faxed for patient but they have not received it back. Asked for an alternative fax #. Confirmed they had the correct fax # and gave the [phone] as well.Commercial Service Technician requested that we watch both fax numbers for this form. documented in this encounterP[facility]08-[facility]24 Telephone encounter Note * Telephone Encounter - Estella Oliva LPN - 02/22/2024 2:05 PM EDT [employer] called, states that a form has been faxed for patient but they have not received it back. Asked for an alternative fax #. Confirmed they had the correct fax # and gave the [phone] as well.Commercial Service Technician requested that we watch both fax numbers for this form. [facility]08-19-2024 Nurse Note* Yoana Orlando RN - 02/20/2024 2:29 PM EDT AMBULATORY PATIENT EDUCATION NOTE TOPIC: GI PROCEDURES: small bowl enteroscopy READINESS TO LEARN INSTRUCTION PROVIDED TO: Patient and family member COGNITIVE ABILITY: Alert and oriented PTED MOTIVATION TO LEARN: Interested FAMILY SUPPORT: High - Very involved in pt care IPATIENT LEARNS BEST BY: Multiple Methods FACTORS AFFECTING LEARNING: None PHYSICAL LIMITATIONS AFFECTING LEARNING: None LEARNING RESPONSE METHOD OF INSTRUCTION: Individual instruction PATIENT / FAMILY RESPONSE: Verbalizes understanding of: WORSENING CONDITION- Signs and symptoms of aworsening condition that warrant a call to the physician FOLLOW-UP PLAN: Patient instructed to call with any further issues SUPPLEMENTAL MATERIAL: Procedure Discharge Instructions REFERRAL (RECOMMENDATION): None [facility]08-19-2024 Nurse Note* Yoana Orlando RN - 02/20/2024 2:29 PM EDT AMBULATORY PATIENT EDUCATION NOTE TOPIC: GI PROCEDURES: small bowl enteroscopy READINESS TO LEARN INSTRUCTION PROVIDED TO: Patient and family member COGNITIVE ABILITY: Alert and oriented PTED MOTIVATION TO LEARN: Interested FAMILY SUPPORT: High - Very involved in pt care IPATIENT LEARNS BEST BY: Multiple Methods FACTORS AFFECTING LEARNING: None PHYSICAL LIMITATIONS AFFECTING LEARNING: None LEARNING RESPONSE METHOD OF INSTRUCTION: Individual instruction PATIENT / FAMILY RESPONSE: Verbalizes understanding of: WORSENING CONDITION- Signs and symptoms of aworsening condition that warrant a call to the physician FOLLOW-UP PLAN: Patient instructed to call with any further issues SUPPLEMENTAL MATERIAL: Procedure Discharge Instructions REFERRAL (RECOMMENDATION): None * Reema Leon LPN - 02/20/2024 12:43 PM EDT PRE OP LEARNING ASSESSMENT PROCEDURE/SURGERY: GI PROCEDURES: EGD READINESS TO LEARN COGNITIVE ABILITY: Alert and oriented MOTIVATION TO LEARN: Eager Interested FAMILY SUPPORT: High - Very involved in pt care PATIENT LEARNS BEST BY: Individual Instruction Verbal Instruction FACTORS AFFECTING LEARNING: None PHYSICAL LIMITATIONS AFFECTING LEARNING: None Electronically Signed By: Reema Leon LPN In Department: GASTROENTEROLOGY documented in this encounterPike [facility]08-19-2024 NoteQ3 Patient Name: Sneha Cardenas Procedure Date: 02/20/2024 1:23 PM Date of : 1955 Admit Type: Outpatient Age: 68 Gender: Female Note Status: Finalized Attending MD: Dylon Laird MD, [id number] Procedure: Small bowel enteroscopy Indications: Obscure gastrointestinal bleeding Providers: Dylon Laird MD Referring Physician: Ryan Tafoya MD (Referring MD) Medicines: Monitored Anesthesia Care Complications: No immediate complications. Requesting Provider: Procedure: Pre-Anesthesia Assessment: - ASA Grade Assessment: II - A patient with mild systemic disease. After obtaining informed consent, the endoscope was passed under direct vision. Throughout the procedure, the patient's blood pressure, pulse, and oxygen saturations were monitored continuously. The Colonoscope was introduced through the mouth and advanced to the mid-jejunum. The small bowel enteroscopy was accomplished without difficulty. The patient tolerated the procedure well. Moderate Sedation: MAC anesthesia was administered by the anesthesia team. Findings: The esophagus was normal. stomach showed a scarred region in the antrum, possible divertuculum, will suggest EUS to evaluate this region There was no evidence of significant pathology in the entire examined duodenum. There was no evidence of significant pathology in the mid-jejunum. Impression: - Normal esophagus. - Normal stomach except for a scarred region in antrum, biopsy not taken because indiction is gi bleeding - Normal examined duodenum. - The examined portion of the jejunum was normal. - No specimens collected. Estimated Blood Loss: Estimated blood loss: none. Recommendation: - [facility]. Procedure Code(s): --- Professional --- 38144 Diagnosis Code(s): --- Professional --- K92.2 CPT copyright 2020 [employer]. All rights reserved. Attending Participation: I personally performed the entire procedure. Scope In: 2:01:41 PM Scope Out: 2:11:35 PM MD Dylon Godinez MD 02/20/2024 2:16:18 PM This report has been signed electronically by Dylon Laird MD Number of Addenda: 0 Note Initiated On: 02/20/2024 1:23 [id number] Patient Name: Sneha Cardenas Procedure Date: 02/20/2024 1:23 PM Date of : 1955 Admit Type: Outpatient Age: 68 Gender: Female Note Status: Finalized Attending MD: Dylon Laird MD, [id number] Procedure: Small bowel enteroscopy Indications: Obscure gastrointestinal bleeding Providers: Dylon Laird MD Referring Physician: Ryan Tafoya MD (Referring MD) Medicines: Monitored Anesthesia Care Complications: No immediate complications. Requesting Provider: Procedure: Pre-Anesthesia Assessment: - ASA Grade Assessment: II - A patient with mild systemic disease. After obtaining informed consent, the endoscope was passed under direct vision. Throughout the procedure, the patient's blood pressure, pulse, and oxygen saturations were monitored continuously. The Colonoscope was introduced through the mouth and advanced to the mid-jejunum. The small bowel enteroscopy was accomplished without difficulty. The patient tolerated the procedure well. Moderate Sedation: MAC anesthesia was administered by the anesthesia team. Findings: The esophagus was normal. stomach showed a scarred region in the antrum, possible divertuculum, will suggest EUS to evaluate this region There was no evidence of significant pathology in the entire examined duodenum. There was no evidence of significant pathology in the mid-jejunum. Impression: - Normal esophagus. - Normal stomach except for a scarred region in antrum, biopsy not taken because indiction is gi bleeding - Normal examined duodenum. - The examined portion of the jejunum was normal. - No specimens collected. Estimated Blood Loss: Estimated blood loss: none. Recommendation: - [facility]. Procedure Code(s): --- Professional --- 66238 Diagnosis Code(s): --- Professional --- K92.2 CPT copyright 2020 [employer]. All rights reserved. Attending Participation: I personally performed the entire procedure. Scope In: 2:01:41 PM Scope Out: 2:11:35 PM MD Dylon Godinez MD 02/20/2024 2:16:18 PM This report has been signed electronically by Dylon Laird MD Number of Addenda: 0 Note Initiated On: 02/20/2024 1:23 [facility]08-19-2024 Nurse Note* Reema Leon LPN - 02/20/2024 12:43 PM EDT PRE OP LEARNING ASSESSMENT PROCEDURE/SURGERY: GI PROCEDURES: EGD READINESS TO LEARN COGNITIVE ABILITY: Alert and oriented MOTIVATION TO LEARN: Eager Interested FAMILY SUPPORT: High - Very involved in pt care PATIENT LEARNS BEST BY: Individual Instruction Verbal Instruction FACTORS AFFECTING LEARNING: None PHYSICAL LIMITATIONS AFFECTING LEARNING: None Electronically Signed By: Reema Leon LPN In Department: GASTROENTEROLOGY [facility]08-16-2024 Telephone encounter Note* Telephone Encounter - Abimbola Lewis LPN - 02/17/2024 11:56 AM EDT Patient recently changed insurance and her Trelegy copay went from $50 to $125. Asking if we could substitute Breztri and she believes this will be more cost effective. RX loaded. Abimbola Lewis LPN [facility]08-16-2024 Miscellaneous Notes* Telephone Encounter - Abimbola Lewis LPN - 02/17/2024 11:56 AM EDT Patient recently changed insurance and her Trelegy copay went from $50 to $125. Asking if we could substitute Breztri and she believes this will be more cost effective. RX loaded. Abimbola Lewis LPN documented in this encounterPike [facility]08-12-2024 Telephone encounter Note * Telephone Encounter - Erickson Novak RN - 02/13/2024 5:05 PM EDT GI Pre-Procedure Spoke with patient: Left message- Attempted to reach the patient at the contact number that they provided [phone] (home) . 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 Failure to have a responsible adult accompany the patient to their procedure appointment prevents the useof sedation or anesthesia for their procedure; and can result in cancellation of the procedure NPO instructions were reviewed. Number to call with questions or concerns [phone] Erickson Novak RN [facility]08-12-2024 Miscellaneous Notes* Telephone Encounter - Erickson Novak RN - 02/13/2024 5:05 PM EDT GI Pre-Procedure Spoke with patient: Left message- Attempted to reach the patient at the contact number that they provided [phone] (home) . 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 Failure to have a responsible adult accompany the patient to their procedure appointment prevents the useof sedation or anesthesia for their procedure; and can result in cancellation of the procedure NPO instructions were reviewed. Number to call with questions or concerns [phone] Erickson Novak RN documented in [facility] encounterP[facility]08-08-2024 Telephone encounter Note * Telephone Encounter - Carol Sosa RN - 02/09/2024 10:10 AM EDT Patient calls to let provider's office know that Dr. Tafoya's office will be contacting us to retrieve the Capsule Endoscopy Report completed by Dr. Antunez's office. Notified patient that results were accessible in [facility] but would wait to hear from Dr. Tafoya's office. Carol Sosa RN [facility]08-08-2024 Miscellaneous Notes* Telephone Encounter - Carol Sosa RN - 02/09/2024 10:10 AM EDT Patient calls to let provider's office know that Dr. Tafoya'esperanza office will be contacting us to retrieve the Capsule Endoscopy Report completed by Dr. Antunez's office. Notified patient that results were accessible in [facility] but would wait to hear from Dr. Tafoya's office. Carol Sosa RN documented in this encounterPike [facility] Hospital08-08-2024 Instructions* Patient Instructions* Ryan Tafoya MD - 02/09/2024 10:09 AM EDT Images from the original note were not included. Bowel Preparation Instructions for: Miralax-Gatorade Preparations IF YOU DO NOT FOLLOW THESE DIRECTIONS, YOUR COLONOSCOPY WILL BE CANCELLED. Vaughn Instructions: Your bowel must be empty so that your doctor can clearly view your colon. Follow all of the instructions in this handout EXACTLY as they are written. Do NOT eat any solid food the ENTIRE day before your colonoscopy. Buy your bowel preparation at least 5 days before your colonoscopy. Four (4) Dulcolax laxative tablets containing 5mg of bisacodyl each (NOT Dulcolax stool softener) One (1) 8.3oz. bottle Miralax (238 grams) or generic equivalent 2 x 32oz. Bottles of Gatorade (NOT RED) Diabetic Patients: Use G2 (Gatorade 2) TRANSPORTATION on the Day of Your Exam A responsible adult MUST be present with you at Check In prior to your colonoscopy and REMAIN in the endoscopy area until you are discharged. You are NOT ALLOWED to drive, take a taxi or bus, or leave the Endoscopy Center ALONE. If you do not have a responsible pizza delivery driver (family member or friend) withyou to take you home, your exam cannot be done with sedation and will be cancelled. Please bring a list of all of your current medications, including any Qlgo-bqr-Hnqvtlf medications with you. Medications If you take insulin, diabetic medications or blood thinners such as Coumadin (warfarin), Plavix (clopidogrel), Ticlid (ticlopidine hydrochloride), Agrylin (anagrelide), Xarelto (Rivaroxaban), Pradaxa(Dabigatran), Eliquis (Apixaban), and Effient (Prasugrel). You MUST call the doctors who orders those medicines for instructions on altering the dosage before your colonoscopy. All other medications should be taken the day of the exam with a sip of water including ASPIRIN. Five (5) Days Before Your Colonoscopy Do NOT take medicines that stop diarrhea - such as Imodium, Kaopectate, or Pepto Bismol. Do NOT take fiber supplements - such as Metamucil, Citrucel, or Perdiem. Do NOT take products that contain iron - such as multi-vitamins (the label lists what is in the products). Three (3) Days Before Your Colonoscopy Do NOT eat high-fiber foods - such as popcorn, beans, seeds (flax, sunflower, quinoa), multigrain bread, nuts, salad/vegetables, or fresh and dried fruit. 1 Bowel Preparation Instructions for: Miralax-Gatorade Preparations One (1) Day Before Your Colonoscopy Only drink clear liquids the ENTIRE DAY before your colonoscopy. Do NOT eat any solid foods. Drink at least 8 ounces of clear liquids every hour after waking up. The clear liquids you can drink include: Clear Liquid (NO RED LIQUIDS) DO NOT DRINK Gatorade, Pedialyte or Powerade Clear broth or bouillon Coffee or tea (no milk or non-dairy creamer) Carbonated and non-carbonated soft drinks Graeme-Aid or other fruit flavored drinks Strained fruit juices (no pulp) Jell-O, popsicles, hard candy Water Alcohol Milk or non-dairy creamers Noodles or vegetables in soup Juice with pulp Liquid you cannot see through Do not use tobacco/vaping products Mix 1/2 of Miralax bottle (119 grams) in each 32 ounces of Gatorade bottle until dissolved. Keep cool in the refrigerator. DO NOT ADD ICE. The bowel preparation solution will be consumed in two parts. Part 1 5:00 PM - Evening before your colonoscopy Take 4 Dulcolax tablets. 6 PM - Evening before your colonoscopy Drink 32 oz. of the mixed solution. Drink an 8 oz. glass of bowel preparation every 15 minutes for a total of 4 glasses. Fifteen (15) minutes later, drink an 8 oz. glass of of clear liquids every 15 minutes for a total of 2 glasses. You may continue to drink clear liquids till midnight. Part 2 On the day of your colonoscopy you may drink clear liquids up to (three) 3 hours prior to procedure. 4 1/2 hours before your colonoscopy Take another 32 oz. bottle of mixed solution. Drink an 8 oz. glass of bowel prep every 15 minutes for a total of 4 glasses. Fifteen (15) minutes later, drink an 8 oz. glass of clear liquids every 15 minutes for a total of 2glasses. You may continue to drink clear liquids up to (three) 3 hours before your exam. 2 06/2019 documented in this encounterP[facility]08-[facility]24 NoteHNO ID: [id number] Author: RYAN TAFOYA MD Service: ? Author Type: Physician Type: Progress Notes Filed: 02/09/2024 10:15 Note Text: Virtual visit, 20 minutes, patient agreed I have communicated my name and active licensure. The patient's identity and physical location were verified at the time of this visit. 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 68 yo with chronic renal failure, on dialysis, and COPD on Oxygen following a bout of COVID 4 years ago. Now with recurrent GI bleeding. Hgb as low as 7. Has needed transfusions, the last was 2 months ago. Now with brown stools. 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 AVMs - will order an antegrade balloon endoscopy. Ryan Tafoya MD Answers submitted by the patient for this visit: Review of Systems Gastroenterology (Submitted on 02/09/2024) Fever: No Chills: No Night Sweats: No Unitentional Weight Change: No A Cough: No Difficulty Breathing: Yes Chest Pain: No Belly pain: No A feeling of fullness or have belly pain after eating: No Food getting stuck in your throat or chest after eating: Yes Nausea - that is, a feeling like you could vomit: No Regurgitation - that is, food or liquid coming back up into your throat or mouth without vomiting, or feel burning behind your breast bone: No Loss of appetite: No To throw up or vomit: No Blood in your stools: No Black tarry stools: No Loose or watery stools: No The feeling like you need to empty your bowels right away - that is, feel as if you would have an accident: No Bowel incontinence - that is, have an accident because you cannot make it to the bathroom in time: No Problems with straining while having bowel movements , hard or lumpy stools, or feel unfinished (that you have not passed all your stool): No Pain in rectum or anus during bowel movements: No Problems with jaundice - that is, yellow discoloration of your skin or eyes, now or in the past: No Problems with having to flush the toilet more than two times due to oily stool, or see stool floating with oil: [facility]08-08-2024 History of Present illness Narrative* Ryan Tafoya MD - 02/09/2024 9:47 AM EDT Virtual visit, 20 minutes, patient agreed I have communicated my name and active licensure. The patient's identity and physical location wereverified at the time of this visit. Either the patient or their legal fuels sales representative has been informed of the risks and benefits of -- and alternatives to -- treatment through a remote evaluation andconsents to proceed with the evaluation remotely. 68 yo with chronic renal failure, on dialysis, and COPD on Oxygen following a bout of COVID 4 yearsago. Now with recurrent GI bleeding. Hgb as low as 7. Has needed transfusions, the last was 2 months ago. Now with brown stools. 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 AVMs - will order an antegrade balloon endoscopy. Ryan Tafoya MD Answers submitted by the patient for this visit: Review of Systems Gastroenterology (Submitted on 02/09/2024) Fever: No Chills: No Night Sweats: No Unitentional Weight Change: No A Cough: No Difficulty Breathing: Yes Chest Pain: No Belly pain: No A feeling of fullness or have belly pain after eating: No Food getting stuck in your throat or chest after eating: Yes Nausea - that is, a feeling like you could vomit: No Regurgitation - that is, food or liquid coming back up into your throat or mouth without vomiting, or feel burning behind your breast bone: No Loss of appetite: No To throw up or vomit: No Blood in your stools: No Black tarry stools: No Loose or watery stools: No The feeling like you need to empty your bowels right away - that is, feel as if you would have an accident: No Bowel incontinence - that is, have an accident because you cannot make it to the bathroom in time: No Problems with straining while having bowel movements , hard or lumpy stools, or feel unfinished (that you have not passed all your stool): No Pain in rectum or anus during bowel movements: No Problems with jaundice - that is, yellow discoloration of your skin or eyes, now or in the past: No Problems with having to flush the toilet more than two times due to oily stool, or see stool floating with oil: No documented in this encounterP[facility]07-30-2024 Telephone encounter Note * Telephone Encounter - Franky Muro MA - 01/31/2024 7:53 AM EDT Fax stamp on form notes this was done 01/29. [facility]07-30-2024 Miscellaneous Notes* Telephone Encounter - Franky Muro MA - 01/31/2024 7:53 AM EDT Fax stamp on form notes this was done 01/29. * Telephone Encounter - Michelle Griffin LPN - 01/24/2024 4:07 PM EDT Patient calling the fax is going to [employer], if you do not have the number can not get it. Asked if they could just fax it to [phone]. She will try to tell them to do that or might have tohave it sent to her email and she upload it to her my chart. * Telephone Encounter - Ericka Christopher LPN - 01/16/2024 4:01 PM EDT Called them back at 140 pm. They were to fax this again. * Telephone Encounter - Danika Peterson, JAMI - 01/13/2024 9:24 AM EDT Fadumo, from [employer], phoned to verify pcp fax number. Confirmed. Reports she is faxing formsto pcp today, and they can only be filled out by doctor. documented in this encounterPike [facility] Hospital07-23-2024 Telephone encounter Note * Telephone Encounter - Michelle Griffin LPN - 01/24/2024 4:07 PM EDT Patient calling the fax is going to [employer], if you do not have the number can not get it. Asked if they could just fax it to [phone]. She will try to tell them to do that or might have tohave it sent to her email and she upload it to her my chart. [facility]07-15-2024 Telephone encounter Note* Telephone Encounter - Ericka Christopher LPN - 01/16/2024 4:01 PM EDT Called them back at 140 pm. They were to fax this again. [facility]07-15-2024 Telephone encounter Note* Telephone Encounter - Ericka Christopher LPN - 01/16/2024 1:46 PM EDT Called [employer] from other encounter. Still nothing rec'd. They say they will fax again. Fax number was verified. [facility]07-15-2024 Miscellaneous Notes* Telephone Encounter - Ericka Christopher LPN - 01/16/2024 1:46 PM EDT Called [employer] from other encounter. Still nothing rec'd. They say they will fax again. Fax number was verified. * Telephone Encounter - Ericka Christopher LPN - 01/13/2024 1:23 PM EDT Here's another encounter from [employer]. Forms are coming today. Nothing rec'd at this time. * Telephone Encounter - Julio Draper MD - 01/13/2024 12:53 PM EDT I am not aware of any newer disability forms. * Telephone Encounter - Bette Segura - 01/12/2024 4:19 PM EDT We received a [facility]oscopy [facility] from [facility] in [place]. Communicationshave been uploaded to the patients chart. Bette Amaya * Telephone Encounter - Ericka Christopher LPN - 01/12/2024 2:40 PM EDT Not that I'm aware of. To pcp to see if he has rec'd any. * Telephone Encounter - Saumya Sheth RN - 01/11/2024 2:43 PM EDT Patient calling to ask if PCP has received Disability Senior Living forms? She says they were sent about one week ago. Saumya Sheth, RN [facility] Tele[facility] encounter Note * Telephone Encounter - Ericka Christopher LPN - 01/13/2024 1:23 PM EDT Here's another encounter from [facility]. Forms are coming today. Nothing rec'd at this time. [facility] Telephone encounter Note* Telephone Encounter - Julio Draper MD - 01/13/2024 12:53 PM EDT I am not aware of any newer disability forms. [facility] Telephone encounter Note* Telephone Encounter - Danika Peterson, RN - 01/13/2024 9:24 AM EDT Fadumo, from [employer], phoned to verify pcp fax number. Confirmed. Reports she is faxing formsto pcp today, and they can only be filled out by doctor. [facility] Telephone encounter Note* Telephone Encounter - Bette Segura - 01/12/2024 4:19 PM EDT We received a Capsule Endoscopy Report from [facility] in [place]. Communicationshave been uploaded to the patients chart. Bette Amaya [facility] Telephone encounter Note* Telephone Encounter - Ericka Christopher LPN - 01/12/2024 2:40 PM EDT Not that I'm aware of. To pcp to see if he has rec'd any. [facility] Telephone encounter Note* Telephone Encounter - Saumya Sheth RN - 01/11/2024 2:43 PM EDT Patient calling to ask if PCP has received Disability Senior Living forms? She says they were sent about one week ago. Saumya Sheth RN [facility] Telephone encounter Note* Telephone Encounter - Michelle Griffin LPN - 12/16/2023 2:26 PM EDT The patient has been identified by name and date of : Yes Caregiver verified no other encounters exist for this prescription request: Yes Caregiver confirmed with patient/requestor that no other refills are due, in the near future, with this provider at this time: Yes The last office visit in the department: 11/11/2023 Does the patient have a future office visit with this provider/department: Yes 05/15/2024 Requested Prescriptions Pending Prescriptions Disp Refills isosorbide mononitrate ER (IMDUR) 60 mg 24 hr tablet 90 tablet 0 Sig: Take 1 tablet by mouth once daily. busPIRone (BUSPAR) 10 mg tablet 180 tablet 0 Sig: Take 1 tablet by mouth two times a day. amLODIPine (NORVASC) 5 mg tablet 90 tablet 0 Sig: Take 1 tablet by mouth every morning. pantoprazole DR (PROTONIX) 40 mg tablet 180 tablet 0 Sig: Take 1 tablet by mouth two times a day before meals. metoprolol tartrate, short acting, (LOPRESSOR) 25 mg tablet 180 tablet 0 Sig: Take 1 tablet by mouth every 12 hours. montelukast (SINGULAIR) 10 mg tablet 90 tablet 0 Sig: Take 1 tablet by mouth daily at bedtime. Michelle Griffin LPN December 16, 2023 2:31 PM [facility] Miscellaneous Notes* Telephone Encounter - Michelle Griffin LPN - 12/16/2023 2:26 PM EDT The patient has been identified by name and date of : Yes Caregiver verified no other encounters exist for this prescription request: Yes Caregiver confirmed with patient/requestor that no other refills are due, in the near future, with this provider at this time: Yes The last office visit in the department: 11/11/2023 Does the patient have a future office visit with this provider/department: Yes 05/15/2024 Requested Prescriptions Pending Prescriptions Disp Refills isosorbide mononitrate ER (IMDUR) 60 mg 24 hr tablet 90 tablet 0 Sig: Take 1 tablet by mouth once daily. busPIRone (BUSPAR) 10 mg tablet 180 tablet 0 Sig: Take 1 tablet by mouth two times a day. amLODIPine (NORVASC) 5 mg tablet 90 tablet 0 Sig: Take 1 tablet by mouth every morning. pantoprazole DR (PROTONIX) 40 mg tablet 180 tablet 0 Sig: Take 1 tablet by mouth two times a day before meals. metoprolol tartrate, short acting, (LOPRESSOR) 25 mg tablet 180 tablet 0 Sig: Take 1 tablet by mouth every 12 hours. montelukast (SINGULAIR) 10 mg tablet 90 tablet 0 Sig: Take 1 tablet by mouth daily at bedtime. Michelle Griffin LPN December 16, 2023 2:31 PM documented in [facility] Telephone encounter Note * Telephone Encounter - Ericka Christopher LPN - 11/14/2023 12:31 PM EDT Pcp completed forms from [facility]. They have been faxed back to number on the form [facility] Miscellaneous Notes* Telephone Encounter - Ericka Christopher LPN - 11/14/2023 12:31 PM EDT Pcp completed forms from [facility]. They have been faxed back to number on the form documented in [facility]05[facility] History of Present illness Narrative* Julio Draper MD - 11/11/2023 3:25 PM EDT This note was created using [employer]. Subjective Patient presents with: Yearly Exam Sneha Cardenas is a 68 year old female. She was doing better from recent COPD exacerbation. She saw pulmonary and pleural effusion and infiltrates were improving. She was going for dialysis, and blood pressure runs low post dialysis, at times with near syncope symptoms. Off dialysis days were notable for significant fatigue. She reported being transfused several weeks ago and her Hgb was reported to be around 11g/dL now. Weakness was slowly improving, and she was now using her walker less andher cane more. Her accompanied her. She needed help with most activities of daily living, even with some self care. She no longer drove. She had not been able to return to work for months, and does not foresee returning to work. Other specialists: Dr. Vonnie Antunez: software security consultant. Dr. Jane Nieves: pulmonary. Dr. Steven Lawson: nephrology. Dr. Jodi Salazar: cardiology. Review of Systems Constitutional: Positive for fatigue. Negative for appetite change and fever. HENT: Negative. Eyes: Positive for visual disturbance. Respiratory: Positive for shortness of breath. Negative for cough and wheezing. Cardiovascular: Negative for chest pain, palpitations and leg swelling. Gastrointestinal: Negative for abdominal pain, constipation and diarrhea. Genitourinary: Negative for dysuria. Musculoskeletal: Positive for back pain and gait problem. Skin: Negative for wound. Neurological: Positive for weakness. PAST MEDICAL HISTORY Diagnosis Date EARNEST (acute kidney injury) ([facility]) EARNEST (acute kidney injury) ([facility]) Anemia requiring transfusions 06/15/2023 Antibiotic-associated diarrhea 07/14/2023 Asthma Benign essential tremor COPD (chronic obstructive pulmonary disease) ([facility]) 07/25/2012 FEV1 0.84L (32%), 10/18/2014 Coronary artery disease 08/19/2023 DDD (degenerative disc disease), cervical 08/15/2015 Empyema ([facility]) 07/09/2023 Environmental allergies Wheezes with hay or dust ESRD (end stage renal disease) ([facility]) Essential and other specified forms of tremor 11/02/2007 Benign essential -- started primidone 06/03/09, Dr. Nguyễn History of colon polyps 2009 Tubular adenoma. Hypertension Hypoxemia 05/01/2021 Post Covid pneumonia. Irritable bowel syndrome Lung nodule Migraine headache Improved with primidone Multiple duodenal ulcers 06/30/2023 NSTEMI (non-ST elevated myocardial infarction) ([facility]) 07/20/2023 Parapneumonic effusion Pneumonia due to COVID-19 virus 05/01/2021 Scoliosis Shock, septic ([facility]) 07/11/2023 Snoring Tobacco use disorder Quit 03/04/2015. Unspecified gastritis and gastroduodenitis without mention of hemorrhage 02/09/2010 Small ulcer on EGD 2009 PAST SURGICAL HISTORY Procedure Laterality Date ARTHROPLASTY TOTAL SHOULDER Right 02/2018 [facility]. Garo Stanford MD BREAST BIOPSY Left 30 [...] LAPS SURG CHOLECYSTECTOMY W/CHOLANGIOGRAPHY 12/12/2007 Normal IOC LEFT HEART CATH,PERCUTANEOUS 08/03/2023 mild CAD PAST SURGICAL HISTORY OF multiple several tubal [...] use: No Current Outpatient Medications Medication Sig sucralfate (CARAFATE) 1 gram tablet TAKE 1 TABLET BY MOUTH THREE TIMES DAILY at 7 AM, 11 AM and 4 pm fluticasone (FLONASE) 50 mcg/actuation nasal spray Use 2 Sprays in each nostril once daily. Rinse mouth after use. amLODIPine (NORVASC) 5 mg tablet Take 1 tablet by mouth every morning. busPIRone (BUSPAR) 10 mg tablet Take 1 tablet by mouth two times a day. isosorbide mononitrate ER (IMDUR) 60 mg 24 hr tablet Take 1 tablet by mouth once daily. metoprolol tartrate, short acting, (LOPRESSOR) 25 mg tablet Take 1 tablet by mouth every 12 hours. montelukast (SINGULAIR) 10 mg tablet Take 1 tablet by mouth daily at bedtime. pantoprazole DR (PROTONIX) 40 mg tablet Take 1 tablet by mouth two times a day before meals. ondansetron orally disintegrating (ZOFRAN ODT) 4 mg disintegrating tablet Take 1 tablet by mouth every 8 hours as needed for nausea/vomiting. OXYGEN, HOME THERAPY, Inhale 3 L/min as instructed as directed. 3L NC continuous, up to 4L with exertion acetaminophen (TYLENOL) 325 mg tablet Take 650 mg by mouth every 6 hours as needed. nitroglycerin sublingual (NITROSTAT) 0.4 mg SL tablet Dissolve 0.4 mg under the tongue every 5 minutes as needed for chest pain. polyethylene glycol 3350 (MIRALAX) 17 gram/dose powder Take 17 g by mouth as needed for constipation. Dissolve dose in 4 - 8 ounces of liquid and take as directed. atorvastatin (LIPITOR) 40 mg tablet Take 1 tablet by mouth daily at bedtime. For cholesterol. albuterol HFA (PROAIR HFA) 90 mcg/actuation inhaler Inhale 2 Puffs as instructed every 4 hours as needed for wheezing/shortness of breath. zllnwdghuhu-fszuaclei-vnanfpdr (TRELEGY ELLIPTA) 100-62.5-25 mcg inhalation powder Inhale 1 Puff asinstructed once daily. ipratropium-albuterol (DUONEB) 0.5 mg-3 mg(2.5 mg base)/3 mL nebu Inhale 3 mL as instructed every 4hours as needed for wheezing/shortness of breath. (Patient taking differently: Inhale 3 mL as instructed every 6 hours as needed for wheezing/shortness of breath.) No current facility-administered medications for this visit. Objective BP 86/58 (BP Site: Left Arm, BP Position: Sitting, BP Cuff Size: Regular Adult) Pulse 76 Resp 16 Ht 161.3 cm (5' 3.5) Wt 57.6 kg (127 lb) SpO2 95% BMI 22.14 kg/m Physical Exam Constitutional: General: She is not in acute distress. Appearance: She is ill-appearing. She is not diaphoretic. HENT: Head: Normocephalic. Nose: Nose normal. Mouth/Throat: Mouth: Mucous membranes are moist. Pharynx: Oropharynx is clear. Eyes: Conjunctiva/sclera: Conjunctivae normal. Cardiovascular: Rate and Rhythm: Normal rate and regular rhythm. Heart sounds: No murmur heard. No gallop. Pulmonary: Effort: No respiratory distress. Breath sounds: Rhonchi present. No wheezing or rales. Comments: On portable O2 via NC. Abdominal: Palpations: Abdomen is soft. Tenderness: There is no abdominal tenderness. Musculoskeletal: Right lower leg: No edema. Left lower leg: No edema. Neurological: General: No focal deficit present. Mental Status: She is alert. Motor: Weakness and tremor present. Gait: Gait abnormal. Comments: Slowed, unsteady at times, dependent on cane for stability. Psychiatric: Mood and Affect: Mood normal. Behavior: Behavior normal. Depression Screening PHQ-2 Score LORRAINE-2 Total Score 11/11/2023 0 0 Depression screening tool completed and reviewed. Based on score and interview, patient is at risk for depression. Screening tool discussed with patient, and I recommended continuing current plan of care. Assessment and Plan 1. Routine medical exam - ICD9: V70.0, ICD10: Z00.00 (primary diagnosis) - BMD suggested. She had some screening done from work. - Eye exam recommended. She will see Dr. Fernandez in [place]. - She declined vaccine recommendations. - She will discuss colonoscopy with her GI specialist. 2. Chronic obstructive pulmonary disease with acute exacerbation (HCC) - ICD9: 491.21, ICD10: J44.1 Stable. 3. Chronic respiratory failure with hypoxia (HCC) - ICD9: 518.83, 799.02, ICD10: J96.11 Stable. 4. ESRD (end stage renal disease) (HCC) - ICD9: 585.6, ICD10: N18.6 On dialysis TID thru catheter. 5. Coagulation defect, unspecified (HCC) - ICD9: 286.9, ICD10: D68.9 Stable. 6. Coronary artery disease involving the [place] coronary artery of the [place] heart without angina pectoris- ICD9: 414.01, ICD10: I25.10 Stable. 7. Essential tremor - ICD9: 333.1, ICD10: G25.0 Stable. 8. Anemia requiring transfusions - ICD9: 285.9, ICD10: D64.9 Reported to be improved from last value on record here. 9. Pleural effusion - ICD9: 511.9, ICD10: J90 Resolving. Julio Draper MD documented in [facility]05-[facility] History of Present illness Narrative* Fan Lunacaprice Garnica PA-C - 11/08/2023 2:30 PM EDT Patient: Sneha Cardenas PCP: Julio Draper MD CC: follow up HPI: Sneha Cardenas 68 year old female former less than [id number] smoker with PMH significant for essential tremor, HTN, COVID-pneumonia 04/2021, chronic hypoxemic respiratory failure, paroxysmal atrial fibrillation (not anticoagulated due to GIB), NSTEMI with mild to moderate coronary artery d iseason on heart cath, ESRD on HD, severe COPD/emphysema, persistent groundglass opacities on chestimaging following pna in August 2023. Patient was admitted to [facility] in July with abdominal pain,nausea and vomiting. KUB pertinent for right-sided pleural effusion. She underwent thoracentesis which was concerning for possible empyema and thus transferred to [facility] for possible thoracic surgical intervention. CT placed on 07/10 and removed on 07/14. Pleural fluid cultures negative. Treated with long course of antibiotics. CTA of the chest to rule out pulmonary embolism was negative but patient has evidence of a new right upper lobe spiculated nodule requiring follow-up. Most recent CT chest 11/02 demonstrated unchanged RUL 8 mm nodule with decreased size of right pleuraleffusion. Recently seen in PCP office and treated for AECOPD with Azithromycin and Prednisone burst. Current maintenance therapy with Trelegy and as needed Albuterol. Today, she states she has completed the antibiotic and prednisone and feels better. Reports very little cough or sputum production. No wheezing. Exertional dyspnea with walking long distances. Ambulating with a cane. Feels fatigued and worn out on dialysis days. No fevers, chills or night sweats. Is gaining weight back from hospitalization. Occasional heartburn, on PPI. Currently wearing 3 L supplemental oxygen continuously. DME: [facility] PAST MEDICAL HISTORY Diagnosis Date EARNEST (acute kidney injury) (HCC) EARNEST (acute kidney injury) ([facility]) Anemia requiring transfusions 06/15/2023 Antibiotic-associated diarrhea 07/14/2023 Asthma Benign essential tremor COPD (chronic obstructive pulmonary disease) ([facility]) 07/25/2012 FEV1 0.84L (32%), 10/18/2014 Coronary artery disease 08/19/2023 DDD (degenerative disc disease), cervical 08/15/2015 Empyema ([facility]) 07/09/2023 Environmental allergies Wheezes with hay or dust ESRD (end stage renal disease) ([facility]) Essential and other specified forms of tremor 11/02/2007 Benign essential -- started primidone 06/03/09, Dr. Nguyễn History of colon polyps 2010 Tubular adenoma. Hypertension Hypoxemia 05/01/2021 Post Covid pneumonia. Irritable bowel syndrome Lung nodule Migraine headache Improved with primidone Multiple duodenal ulcers 06/30/2023 NSTEMI (non-ST elevated myocardial infarction) ([facility]) 07/20/2023 Parapneumonic effusion Pneumonia due to COVID-19 virus 05/01/2021 Scoliosis Shock, septic ([facility]) 07/11/2023 Snoring Tobacco use disorder Quit 03/04/2015. Unspecified gastritis and gastroduodenitis without mention of hemorrhage 02/09/2010 Small ulcer on EGD 2009 Allergies: Keflex [Cephalexin] Intolerance Comment:Tachycardia, palpitations. sucralfate (CARAFATE) 1 gram tablet TAKE 1 TABLET BY MOUTH THREE TIMES DAILY at 7 AM, 11 AM and 4 pm fluticasone (FLONASE) 50 mcg/actuation nasal spray Use 2 Sprays in each nostril once daily. Rinse mouth after use. amLODIPine (NORVASC) 5 mg tablet Take 1 tablet by mouth every morning. busPIRone (BUSPAR) 10 mg tablet Take 1 tablet by mouth two times a day. isosorbide mononitrate ER (IMDUR) 60 mg 24 hr tablet Take 1 tablet by mouth once daily. metoprolol tartrate, short acting, (LOPRESSOR) 25 mg tablet Take 1 tablet by mouth every 12 hours. montelukast (SINGULAIR) 10 mg tablet Take 1 tablet by mouth daily at bedtime. pantoprazole DR (PROTONIX) 40 mg tablet Take 1 tablet by mouth two times a day before meals. ondansetron orally disintegrating (ZOFRAN ODT) 4 mg disintegrating tablet Take 1 tablet by mouth every 8 hours as needed for nausea/vomiting. OXYGEN, HOME THERAPY, Inhale 3 L/min as instructed as directed. 3L NC continuous, up to 4L with exertion acetaminophen (TYLENOL) 325 mg tablet Take 650 mg by mouth every 6 hours as needed. nitroglycerin sublingual (NITROSTAT) 0.4 mg SL tablet Dissolve 0.4 mg under the tongue every 5 minutes as needed for chest pain. polyethylene glycol 3350 (MIRALAX) 17 gram/dose powder Take 17 g by mouth as needed for constipation. Dissolve dose in 4 - 8 ounces of liquid and take as directed. atorvastatin (LIPITOR) 40 mg tablet Take 1 tablet by mouth daily at bedtime. For cholesterol. albuterol HFA (PROAIR HFA) 90 mcg/actuation inhaler Inhale 2 Puffs as instructed every 4 hours as needed for wheezing/shortness of breath. cfawjlgpltf-comzxlgal-vvusthjp (TRELEGY ELLIPTA) 100-62.5-25 mcg inhalation powder Inhale 1 Puff asinstructed once daily. ipratropium-albuterol (DUONEB) 0.5 mg-3 mg(2.5 mg base)/3 mL nebu Inhale 3 mL as instructed every 4hours as needed for wheezing/shortness of breath. (Patient taking differently: Inhale 3 mL as instructed every 6 hours as needed for wheezing/shortness of breath.) Social History Tobacco Use Smoking status: Former Packs/day: 0.50 Years: 34.00 Additional pack years: 0.00 Total pack years: 17.00 Types: Cigarettes Start date: 1974 Quit date: 05/23/2016 Years since quittin.4 Smokeless tobacco: Never Tobacco comments: Resumed short period. Quit for good 05/2016. Vaping Use Vaping Use: Never used Substance Use Topics Alcohol use: No Drug use: No Family History Adopted: Yes Problem Relation Age of Onset Scoliosis Daughter Natural daughter. PAST SURGICAL HISTORY Procedure Laterality Date ARTHROPLASTY TOTAL SHOULDER Right 02/2018 [facility]. Garo Stanford MD BREAST BIOPSY Left 30 [...] LAPS SURG CHOLECYSTECTOMY W/CHOLANGIOGRAPHY 12/12/2007 Normal IOC LEFT HEART CATH,PERCUTANEOUS 08/03/2023 mild CAD PAST SURGICAL HISTORY OF multiple several tubal pregnancies, tubes both removed over several surgeries PAST SURGICAL HISTORY OF 1993 left inguinal hernia with mesh PAST SURGICAL HISTORY OF 1989 Hemorrhoid surgery x2 TONSILLECTOMY & ADENOIDECTOMY <AGE 13 I reviewed the past medical history, family history, social history and surgical history with changes noted above and updated in EMR. IMMUNIZATIONS Prevnar - 11/2022 Pneumovax - 2021 Influenza - xx COVID-19 - most recent 04/2022 ROS: See HPI. Otherwise negative. PHYSICAL EXAMINATION: BP 132/66 (BP Site: Right Arm, BP Position: Sitting, BP Cuff Size: Regular Adult) Pulse 72 Resp16 Wt 54.9 kg (121 lb) SpO2 93% BMI 20.77 kg/m O2: 2L NC Gen: No acute distress. Cooperative with examination. HEENT: Normocephalic. Sclera, conjunctiva clear. Oral hygeine and dentition good. No thrush. Resp: No stridor, accessory respiratory muscle use, supra-sternal or intercostal retractions. No wheezes, crackles. CV: Regular rythm. Heart tones normal. Radial pulses normal. Ext: Warm and well perfused. No clubbing, cyanosis. Trace bilateral edema. Skin: No rash, ecchymoses. Neuro: Mental status normal. Affect normal. No tremor. DATA: CT chest, 11/03/2023 IMPRESSION: 1. There is an 8 mm nodule in the lateral right upper lobe which appears unchanged in size compared to the most recent CT chest, but has developed since the prior CT chest from 2022. Continued follow-up is advised. 2. Resolution of previously described airspace disease. Improved aeration of bilateral lower lungs. 3. Decreased size of a right pleural effusion * * *Final Report* * * DATE OF EXAM: Nov 03 2023 8:39AM [facility] [id number] - CT CHEST WO IVCON / PROCEDURE REASON: multiple diagnoses * * * * Physician Interpretation * * * * EXAMINATION: CHEST CT WITHOUT CONTRAST CLINICAL HISTORY: Parapneumonic effusion Technique: Spiral CT acquisition of the chest from the thoracic inlet to the upper abdomen without contrast. MQ: [id number] CT Radiation dose: Integrated Dose-length product (DLP) for this visit = 174 mGy*cm CT Dose Reduction Employed: Automated exposure control(AEC) and iterative recon Comparison: CT chest 07/23/[address] chest 05/25/2023 RESULT: Limitations: None. Lines, tubes, and devices: Right central line with the tip in the SVC Lung parenchyma and airways: There is an 8 mm nodule in the lateral right upper lobe (6:38) which appears unchanged in size compared with the most recent CT chest, but is new since 2022. Stable 7 mm subpleural nodule in the medial left upper lobe (6:37). 6 mm nodule anterior left upper lobe (6:59) and 4 mm nodule posterior left lower lobe (6:152) are stable since 2022. Resolution of previously described airspace disease. Improved aeration of the lower lobes. Unchanged left apical scarring. Centrilobular emphysema. Central airways are patent. Pleural space: Decreased size of a trace loculated right pleural effusion. Left pleural effusion has resolved. Lower neck, lymph nodes, and mediastinum: The imaged thyroid gland is normal. No lymphadenopathy in the supraclavicular, axillary, mediastinal, or hilar regions. Heart, pericardium, and thoracic vessels: Unchanged dilatation of the ascending thoracic aorta which measures 4 cm in caliber. The cardiac chambers are normal in size. Mild coronary artery atherosclerotic calcifications are noted, although the study is not optimized for coronary assessment. No pericardial effusion or thickening. Bones and soft tissues: No destructive bone lesion. Chest wall is unremarkable. Upper abdomen: No abnormality in the imaged upper abdomen. Localizer images: No additional findings. ASSESSMENT/PLAN: 1. Centrilobular emphysema (HCC) - ICD9: 492.8, ICD10: J43.2 (primary diagnosis) Continue Trelegy with as needed Albuterol. 2. Lung nodules - ICD9: 793.19, ICD10: R91.8 Reviewed images with patient and spouse. 8 mm nodule in the lateral right upper lobe which appears unchanged in size compared to the most recent CT chest, but has developed since the prior CT chest from 2022. Additional <8 mm nodules stable since Chest CT 2022. CT chest in 6 months. - CT CHEST WO IVCON 3. Chronic hypoxemic respiratory failure (HCC) - ICD9: 518.83, 799.02, ICD10: J96.11 Patient is compliant and benefits from supplemental oxygen. Patient has been able to decrease oxygen requirements. 4. Parapneumonic effusion - ICD9: 511.89, ICD10: J18.9, J91.8 S/p chest tube placement. Improved on most recent CT chest. 5. Former smoker - ICD9: V15.82, ICD10: Z87.891 Continue abstinence. 6. Hemodialysis status (HCC) - ICD9: V45.11, ICD10: Z99.2 HD M/W/F Portions of this documentation were copied and pasted from previous office visit notes in order to provide a cohesive continuity of the history. The note has been reviewed and edited and updated as necessary. Luna Swartz PA-C documented in this encounterP[facility]05-[facility]24 History of Present illness Narrative* Jacinto Blanchard RT(R) - 11/03/2023 8:20 AM EDT Radiology Service Progress Note PATIENT NAME: Sneha Cardenas DATE OF SERVICE: November 03, 2023 TIME: 8:37 AM PATIENT IDENTITY VERIFICATION COMPLETED USING TWO (2) IDENTIFIERS: Name and Date of confirmedby patient verbally. FALL SCREENING: Has the patient had 2 falls in the last year or 1 fall with injury or currently using an Ambulatory Assistive Device (Walker, Cane, Wheelchair, Crutches, etc.)? No PATIENT GENDER DATA: Female. status: : No status: NO. PATIENT RELEVANT IMPLANT DATA REVIEWED: Yes PATIENT PRESENTS WITH AN IMPLANTABLE OR ATTACHED PENSION ADMINISTRATOR: No RADIOLOGY DEPARTMENT: CT; Exam(s) Completed: Chest PERIPHERAL IV DATA: Not applicable SIGNED BY: RT Burke(R) November 03, 2023 8:37 AM documented in this encounterP[facility]05[facility]24 Telephone encounter Note * Telephone Encounter - Julio Draper MD - 11/02/2023 12:33 AM EDT This was completed. [facility] Miscellaneous Notes* Telephone Encounter - Julio Draper MD - 11/02/2023 12:33 AM EDT This was completed. * Telephone Encounter - Ericka Christopher LPN - 10/25/2023 3:39 PM EDT Fax rec'd from [facility]. Form is called leave as an accommodation medical certification. Called pt and she says she has not returned to work. (She is doubtful she can.) She is going to dialysis 3 times a week. Mon,Wed and fri for 3.5 hours a day. She is very exhausted with this. She also notes the short term disability ended in Aug. She suspected nursing home disability will be coming. (FYI). documented in this encounterPike [facility]04-29-2024 History of Present illness Narrative* Alva Baez RT(R) - 10/31/2023 6:20 PM EDT Radiology Service Progress Note PATIENT NAME: Sneha Cardenas DATE OF SERVICE: October 31, 2023 TIME: 6:15 PM PATIENT IDENTITY VERIFICATION COMPLETED USING TWO (2) IDENTIFIERS: Name and Date of confirmedby patient verbally. FALL SCREENING: Has the patient had 2 falls in the last year or 1 fall with injury or currently using an Ambulatory Assistive Device (Walker, Cane, Wheelchair, Crutches, etc.)? Yes, Patient High Riskfor Falls What interventions were put in place to prevent falls during this visit? Offered Assistance with Transfers/Clothing and Instructed Patient to Remain Seated (Not on Exam Table) Until Exam PATIENT GENDER DATA: Female. status: : No status: NO. PATIENT RELEVANT IMPLANT DATA REVIEWED: Not Applicable PATIENT PRESENTS WITH AN IMPLANTABLE OR ATTACHED PENSION ADMINISTRATOR: No RADIOLOGY DEPARTMENT: General X-ray: Exam(s) Completed: Chest X-Ray PERIPHERAL IV DATA: Not applicable SIGNED BY: RT Randolph(R) October 31, 2023 6:15 PM documented in this encounterPike [facility] Hospital04-29-2024 Instructions* Patient Instructions* Julio Draper MD - 10/31/2023 6:09 PM EDT NO ZOFRAN WHILE ON ANTIBIOTIC. documented in this encounterPike [facility] Hospital04-29-2024 History of Present illness Narrative* Julio Draper MD - 10/31/2023 5:54 PM EDT This note was created using [employer]. Subjective Sneha Cardenas is a 68 year old female here with spouse. She started with a dry nagging cough andsome increase in dyspnea last night. She had recurrent hospitalizations due to pneumonia. She had no contact with any one ill, and denied flu like symptoms. We reviewed her history of GI bleeding and duodenal ulcers concerning for adverse effects from steroids in the setting of critical illness. She was on dialysis 3 times a week. Review of Systems Constitutional: Positive for fatigue. Negative for chills, diaphoresis and fever. HENT: Positive for sore throat. Negative for congestion and rhinorrhea. Respiratory: Positive for cough, shortness of breath and wheezing. Cardiovascular: Negative for chest pain, palpitations and leg swelling. Gastrointestinal: Negative for abdominal pain, nausea and vomiting. Musculoskeletal: Positive for gait problem. ACTIVE PROBLEM LIST Essential Tremor Upper GI Bleed Environmental Allergies Chronic Obstructive Pulmonary Disease (Hcc) Primary Hypertension Hyperlipidemia Age-Related Osteoporosis Without Current Pathological Fracture Lung Nodule Chronic Respiratory Failure With Hypoxia (Hcc) Duodenal Ulcer Paroxysmal Atrial Fibrillation ([facility]) Pneumonia Due to Infectious Organism Anemia Requiring Transfusions Dysphagia Antibiotic-Associated Diarrhea Pulmonary Emphysema (Hcc) Former Smoker Nstemi (Non-St Elevated Myocardial Infarction) ([facility]) History of GI Bleed History of Copd Pleural Effusion Malnutrition of Mild Degree (Hcc) Esrd (End Stage Renal Disease) ([facility]) Gastrointestinal Hemorrhage Associated With Peptic Ulcer Volume Overload Hemodialysis Catheter Malfunction (Hcc) Coronary Artery Disease Coagulation Defect, Unspecified (Hcc) Anxiety About Health Current Outpatient Medications Medication Sig sucralfate (CARAFATE) 1 gram tablet TAKE 1 TABLET BY MOUTH THREE TIMES DAILY at 7 AM, 11 AM and 4 pm fluticasone (FLONASE) 50 mcg/actuation nasal spray Use 2 Sprays in each nostril once daily. Rinse mouth after use. amLODIPine (NORVASC) 5 mg tablet Take 1 tablet by mouth every morning. busPIRone (BUSPAR) 10 mg tablet Take 1 tablet by mouth two times a day. isosorbide mononitrate ER (IMDUR) 60 mg 24 hr tablet Take 1 tablet by mouth once daily. metoprolol tartrate, short acting, (LOPRESSOR) 25 mg tablet Take 1 tablet by mouth every 12 hours. montelukast (SINGULAIR) 10 mg tablet Take 1 tablet by mouth daily at bedtime. pantoprazole DR (PROTONIX) 40 mg tablet Take 1 tablet by mouth two times a day before meals. ondansetron orally disintegrating (ZOFRAN ODT) 4 mg disintegrating tablet Take 1 tablet by mouth every 8 hours as needed for nausea/vomiting. OXYGEN, HOME THERAPY, Inhale 3 L/min as instructed as directed. 3L NC continuous, up to 4L with exertion acetaminophen (TYLENOL) 325 mg tablet Take 650 mg by mouth every 6 hours as needed. nitroglycerin sublingual (NITROSTAT) 0.4 mg SL tablet Dissolve 0.4 mg under the tongue every 5 minutes as needed for chest pain. polyethylene glycol 3350 (MIRALAX) 17 gram/dose powder Take 17 g by mouth as needed for constipation. Dissolve dose in 4 - 8 ounces of liquid and take as directed. atorvastatin (LIPITOR) 40 mg tablet Take 1 tablet by mouth daily at bedtime. For cholesterol. albuterol HFA (PROAIR HFA) 90 mcg/actuation inhaler Inhale 2 Puffs as instructed every 4 hours as needed for wheezing/shortness of breath. qivkmbkjnjz-sugshtfqy-jdqgdfkt (TRELEGY ELLIPTA) 100-62.5-25 mcg inhalation powder Inhale 1 Puff asinstructed once daily. ipratropium-albuterol (DUONEB) 0.5 mg-3 mg(2.5 mg base)/3 mL nebu Inhale 3 mL as instructed every 4hours as needed for wheezing/shortness of breath. (Patient taking differently: Inhale 3 mL as instructed every 6 hours as needed for wheezing/shortness of breath.) No current facility-administered medications for this visit. Objective Blood Pressure 116/60 (BP Site: Left Arm, BP Position: Sitting, BP Cuff Size: Large Adult) Pulse 68 Temperature 37 C (98.6 F) (Temporal) Respiration 12 Weight 57.2 kg (126 lb) Body Mass Index 21.63 kg/m Physical Exam Constitutional: General: She is not in acute distress. Appearance: She is not ill-appearing or diaphoretic. HENT: Nose: No congestion or rhinorrhea. Mouth/Throat: Mouth: Mucous membranes are moist. Pharynx: Posterior oropharyngeal erythema present. No oropharyngeal exudate. Eyes: Conjunctiva/sclera: Conjunctivae normal. Cardiovascular: Rate and Rhythm: Normal rate and regular rhythm. Heart sounds: No murmur heard. No gallop. Pulmonary: Effort: No accessory muscle usage or respiratory distress. Breath sounds: Decreased air movement present. Examination of the right-upper field reveals wheezing. Examination of the left-upper field reveals wheezing. Examination of the right-lower field reveals rales. Examination of the left- lower field reveals rales. Wheezing and rales present. Comments: On portable O2 via NC. Abdominal: General: There is no distension. Musculoskeletal: Right lower leg: No edema. Left lower leg: No edema. Lymphadenopathy: Cervical: No cervical adenopathy. Neurological: General: No focal deficit present. Mental Status: She is alert. Gait: Gait abnormal. Comments: Using a cane. Assessment and Plan 1. Chronic obstructive pulmonary disease with acute exacerbation (HCC) - ICD9: 491.21, ICD10: J44.1(primary diagnosis) Shared medical decision making was done. We agreed to short term prednisone. - AZITHROMYCIN 250 MG TABLET - PREDNISONE 20 MG TABLET - XR CHEST 2V FRONTAL/LAT 2. Chronic respiratory failure with hypoxia (HCC) - ICD9: 518.83, 799.02, ICD10: J96.11 Stable oxygen need. 3. ESRD (end stage renal disease) (HCC) - ICD9: 585.6, ICD10: N18.6 On dialysis. 4. History of GI bleed - ICD9: V12.79, ICD10: Z87.19 On PPI and sucralfate. No symptoms of GI bleeding. Follow up as scheduled or sooner if needed. Julio Draper MD documented in this encounterPike [facility] Hospital04-29-2024 Telephone encounter Note * Telephone Encounter - Carol Sosa RN - 10/31/2023 8:20 AM EDT Patient calls to report non-productive cough that started this morning. Concerned because previously developed pneumonia with same type of cough.Patient currently at dialysis and requests appointmentspecifically with Dr. Draper. Nurse triage completed and recommends see provider within 4 hours for mild difficulty breathing. Patient reports she has COPD and she is on oxygen for SOB. Patient scheduled first available appt with Dr. Draper at 520 pm per patient request. Patient aware to callback if any worsening symptoms and aware of red flag symptoms to go to ER with. Care advice reviewed. Patient verbalizes understanding. Reason for Disposition [1] MILD difficulty breathing (e.g., minimal/no SOB at rest, SOB with walking, pulse <100) AND [2] still present when not coughing Answer Assessment - Initial Assessment Questions 1. ONSET:This morning woke up with a cough. Patient reports history of pneumonia that started with same symptoms of dry non-productive cough. Requests appointment with Dr. Draper to review what she can do to stay ahead of this. 2. SEVERITY: Not productive. 3. SPUTUM: No sputum currently 4. HEMOPTYSIS: None 5. DIFFICULTY BREATHING: - MILD: No SOB at rest, mild SOB with walking, speaks normally in sentences, can lie down, no retractions, pulse < 100. Patient reports that she has COPD is on oxygen SOB is slightly worse. Current oxygen level is 3 LPMwhich is effective. 6. FEVER: No 7. CARDIAC HISTORY:N-STEMI, AFIB, HTN. No congestive heart failure. 8. LUNG HISTORY: COPD, Lung nodule, Chronic Resp failure, HX of pneumonia, emphysema. No pulmonary embolus, asthma. 9. PE RISK FACTORS: No recent major surgery, recent prolonged travel, bedridden. 10. OTHER SYMPTOMS:No runny nose, wheezing, chest pain) 11. : NA 12. TRAVEL:No Protocols used: Cough - Acute Vva-Qxcwbalnjy-VVNCO-AH [facility] Miscellaneous Notes* Telephone Encounter - Carol Sosa RN - 10/31/2023 8:20 AM EDT Patient calls to report non-productive cough that started this morning. Concerned because previously developed pneumonia with same type of cough.Patient currently at dialysis and requests appointmentspecifically with Dr. Draper. Nurse triage completed and recommends see provider within 4 hours for mild difficulty breathing. Patient reports she has COPD and she is on oxygen for SOB. Patient scheduled first available appt with Dr. Draper at 520 pm per patient request. Patient aware to callback if any worsening symptoms and aware of red flag symptoms to go to ER with. Care advice reviewed. Patient verbalizes understanding. Reason for Disposition [1] MILD difficulty breathing (e.g., minimal/no SOB at rest, SOB with walking, pulse <100) AND [2] still present when not coughing Answer Assessment - Initial Assessment Questions 1. ONSET:This morning woke up with a cough. Patient reports history of pneumonia that started with same symptoms of dry non-productive cough. Requests appointment with Dr. Draper to review what she can do to stay ahead of this. 2. SEVERITY: Not productive. 3. SPUTUM: No sputum currently 4. HEMOPTYSIS: None 5. DIFFICULTY BREATHING: - MILD: No SOB at rest, mild SOB with walking, speaks normally in sentences, can lie down, no retractions, pulse < 100. Patient reports that she has COPD is on oxygen SOB is slightly worse. Current oxygen level is 3 LPMwhich is effective. 6. FEVER: No 7. CARDIAC HISTORY:N-STEMI, AFIB, HTN. No congestive heart failure. 8. LUNG HISTORY: COPD, Lung nodule, Chronic Resp failure, HX of pneumonia, emphysema. No pulmonary embolus, asthma. 9. PE RISK FACTORS: No recent major surgery, recent prolonged travel, bedridden. 10. OTHER SYMPTOMS:No runny nose, wheezing, chest pain) 11. : NA 12. TRAVEL:No Protocols used: Cough - Acute Uls-Iwjufdnyos-JMLOE-AH documented in this encounterPike [facility] Hospital04-23-2024 Telephone encounter Note * Telephone Encounter - Ericka Christopher LPN - 10/25/2023 3:39 PM EDT Fax rec'd from [facility]. Form is called leave as an accommodation medical certification. Called pt and she says she has not returned to work. (She is doubtful she can.) She is going to dialysis 3 times a week. Mon,Wed and fri for 3.5 hours a day. She is very exhausted with this. She also notes the short term disability ended in Aug. She suspected nursing home disability will be coming. (FYI). [facility] History of Present illness Narrative* Aria Rebolledo - 10/10/2023 11:55 AM EDT Contacted patient, she is scheduled to see Dr. Antunez @ [facility] in November She had her Scopes done with him previously and is planning to use him again. Aria Rebolledo * Tabatha Tilley RN - 10/10/2023 7:05 AM EDT COLONOSCOPY PATIENT OUTREACH Action/FYI Colonoscopy Recall Patient identified by Name and : Yes. --- OUTREACH OUTCOME ACTION: Consult- Telephone Call- Pt is overdue for screening colonoscopy. Pt needs consult due to medical history and/or medications. Please call patient and schedule appointment with General Surgery Provider. No prior endoscopy noted. Tabatha Tilley, RN documented in this encounterPike [facility] Hospital03-22-2024 Miscellaneous Notes* Telephone Encounter - Janie Garnica LPN - 09/23/2023 11:39 AM EDT Patient has been identified by name and date of : No Patient phones for refill(s): Requested Prescriptions Pending Prescriptions Disp Refills sucralfate (CARAFATE) 1 gram tablet Sig: TAKE 1 TABLET BY MOUTH THREE TIMES DAILY at 7 AM, 11 AM and 4 pm Date of last office visit in primary care: 08/25/2023 Date of next office visit in primary care: 11/11/2023 Please advise. Thank you. Janie Garnica LPN. * Telephone Encounter - Lucrecia Lee - 09/23/2023 11:16 AM EDT Patient has been identified by name and date of : Yes, Patient phones for refill(s): Requested Prescriptions Pending Prescriptions Disp Refills sucralfate (CARAFATE) 1 gram tablet Sig: TAKE 1 TABLET BY MOUTH THREE TIMES DAILY at 7 AM, 11 AM and 4 pm Date of last office visit in primary care: 08/25/2023 Date of next office visit in primary care: 11/11/2023 Please advise. Thank you. Lucrecia Lee. documented in this encounterPike [facility] Hospital03-18-2024 Miscellaneous Notes* Telephone Encounter - Franky Muro Ma - 09/19/2023 1:22 PM EDT RONALD: 08/25/2023 NOV: 11/11/2023 * Telephone Encounter - Any Iniguez - 09/19/2023 12:12 PM EDT Patient has been identified by name and date of : Yes Requested Prescriptions Pending Prescriptions Disp Refills fluticasone (FLONASE) 50 mcg/actuation nasal spray 1 Each 11 Sig: Use 2 Sprays in each nostril once daily. Rinse mouth after use. RX INSTRUCTIONS: Patient aware RX will be sent to pharmacy. No need to notify patient. Any Pichardo \ documented in this encounterPike [facility] Hospital03-14-2024 Miscellaneous Notes* Telephone Encounter - Danika Peterson RN - 09/15/2023 2:26 PM EDT Notified patient. * Telephone Encounter - Julio Draper MD - 09/15/2023 1:21 PM EDT Patient's request for medication is as follows Requested Prescriptions Signed Prescriptions Disp Refills amLODIPine (NORVASC) 5 mg tablet 90 tablet 0 Sig: Take 1 tablet by mouth every morning. Authorizing Provider: JULIO DRAPER busPIRone (BUSPAR) 10 mg tablet 180 tablet 0 Sig: Take 1 tablet by mouth two times a day. Authorizing Provider: JULIO DRAPER isosorbide mononitrate ER (IMDUR) 60 mg 24 hr tablet 90 tablet 0 Sig: Take 1 tablet by mouth once daily. Authorizing Provider: JULIO DRAPER metoprolol tartrate, short acting, (LOPRESSOR) 25 mg tablet 180 tablet 0 Sig: Take 1 tablet by mouth every 12 hours. Authorizing Provider: JULIO DRAPER montelukast (SINGULAIR) 10 mg tablet 90 tablet 0 Sig: Take 1 tablet by mouth daily at bedtime. Authorizing Provider: JULIO DRAPER pantoprazole DR (PROTONIX) 40 mg tablet 180 tablet 0 Sig: Take 1 tablet by mouth two times a day before meals. Authorizing Provider: JULIO DRAPER Order entered - please phone pharmacy and notify patient. Okay POC. Julio Draper MD * Telephone Encounter - Annette Farr LPN - 09/15/2023 9:38 AM EDT Pt called and checking status on refills. Pt is out of some of the medications. Please advise pt when sent. Annette Farr LPN * Telephone Encounter - Sarah Peña RN - 09/13/2023 2:35 PM EDT Carlos A nurse from [facility] calling in as he did his nursing evaluation today and he would like to extend pt to 1x per week for 2 weeks yet. Call him only if a problem. Next, pt was put on a lot of meds when in the hospital and is now out of those medications and there are no refills. Does Dr. Draper want pt to continue these medications and if so, will he order refills? Pt is set up with [facility] but they are double checking when her appt is. The hospital computers were down and when they come back up, they will call the pt to let her know when her appt is. All prescriptions pended. Pt will need meds no later than . Pt had hospital f/u on 08/25 and next OV is 11/11/23 If all prescriptions okayed and sent per Dr. Draper, please call pt when the prescriptions have been approved. Her phone # is [phone] documented in this encounterPike [facility] Hospital03-06-2024 Miscellaneous Notes* Telephone Encounter - Julio Draper MD - 09/07/2023 9:01 AM EST Noted. * Telephone Encounter - Carol Sosa RN - 09/06/2023 2:11 PM EST Nelson RN with [facility] calls to give further update on patient. Nelson reports that patient has bilateral lower leg edema 2+ pitting which is slightly worse than normal. Patient's lung sounds are fine crackles bilateral lower bases posteriorly. Nelson reports it was osbaldo the left lower base previously. Pulse ox is 96% on 2 LPM at rest. Patient is scheduled for dialysis tomorrow. Patient is requesting Dr. Draper refill her Zofran that was previously ordered by Dr. Nievse. Pended. Carol Sosa RN * Telephone Encounter - Genna Lowry RN - 09/06/2023 10:45 AM EST Twyla PIZARRO from [facility] calls to report that patient had reported to him that she had fallen on Tuesday night around 2 am. Patient had decided to not use walker when transporting self. No injuries noted. Patient is doing good with therapy. Patient walked 45 feet without O2 dropping. Patient only feels a little fatigued. BP 128/69 P 62 O2 97 on 2 L O2 Genna Lowry RN documented in this encounterPike Community Hospital03-02-2024 Miscellaneous Notes* Telephone Encounter - Aliya Dahl MD - 09/03/2023 8:46 AM EST 09/02/2023--7:22pm--call from [facility] health. Pt called because she has mild pedal edema. Had dialysis today and usu edema is gone. She is not SOB and feels fine overall. Does not want to go to ER. Home care will send a nurse out on 09/03/23 to assess her. Aliya Dahl MD documented in this encounterPike Community Hospital02-28-2024 Miscellaneous Notes* Telephone Encounter - Saumya Sheth RN - 08/31/2023 1:33 PM EST Left provider message with verbal okay on secure voice mail for Milena NAE @ [facility]. Saumya Sheth RN * Telephone Encounter - Julio Draper MD - 08/31/2023 12:59 PM EST Okay. * Telephone Encounter - Genna Lowry RN - 08/31/2023 8:29 AM EST Montana SONI from [facility] calls to report that social work visited patient and patient was reporting to them increased depression/anxiety. [place] asking for verbal order for SW to visit patient again next week. Please review and advise, Genna Lowry RN documented in this encounterPike Community Hospital02-28-2024 Miscellaneous Notes* Telephone Encounter - Ericka Christopher LPN - 08/31/2023 8:48 AM EST Order faxed to [facility] transfusion center. Pt notified. * Telephone Encounter - Andrez Alonso - 08/30/2023 10:02 AM EST Pt called and was asking about a lab order that was going to be called in and somebody would call to schedule it for her. I informed her Dr. Draper was not in today, and that I would send a note. She said this was different than the labs she had done last week. * Telephone Encounter - Ericka Christopher LPN - 08/29/2023 4:05 PM EST Called pt and reviewed. She would be willing to do this if it can help her feel better. She has dialysis M W F from 630 am to 1130 am. Printed order to pcp to review and sign. * Telephone Encounter - Ericka Christopher LPN - 08/29/2023 3:53 PM EST ----- Message from Julio Draper MD sent at 08/27/2023 4:04 PM EST ----- Anemia stable, but can be considered for outpatient transfusion to improve oxygen carrying capacity. If agreeable, set up outpatient transfusion two units PRBC. documented in this encounterPike Community Hospital02-22-2024 History of Present illness Narrative* Anushka Alexis LPN - 08/25/2023 3:05 PM EST Ambulatory Ear Lavage Pre-treatment: Warm water Treatment: Both ears Equipment and Irrigation solution and Volume used: Single use syringe with single use irrigation tip Water Return flow appearance: Yellow Patient tolerated procedure: yes Tympanic membrane assessment: Tympanic membrane assessed by LIP pre and post procedure * Julio Draper MD - 08/25/2023 2:25 PM EST This note was created using [employer]. Subjective Patient presents with: Hospital F/U Sneha Cardenas is a 68 year old female. She had been in and out of hospitals due to complicated and critical illness. She was recently again in [facility] for clogged dialysis catheter. She was now back home with Home Health, PT, OT, ST. She was finishing levofloxacin for pneumonia. She wantedher anemia rechecked, since she had no access to labs at dialysis center. She had dysphagia, and atorvastatin 80 mg was difficult to swallow, even with applesauce. She was supposed to follow up with cardiology in [place], but preferred local referrals. She started dialysis locally but had no local rig builder helper. She will see pulmonary here in November. She missed her follow up with Dr. Antunez (GI) due to hospitalizations, so she will reschedule those. Review of Systems Constitutional: Positive for appetite change and fatigue. Negative for chills and fever. HENT: Positive for trouble swallowing. Negative for sore throat. Respiratory: Positive for shortness of breath. Negative for cough and wheezing. Cardiovascular: Positive for leg swelling. Negative for chest pain and palpitations. Gastrointestinal: Positive for nausea. Negative for abdominal pain, blood in stool, diarrhea and vomiting. Genitourinary: Negative for difficulty urinating. Musculoskeletal: Positive for gait problem. Skin: Negative for wound. Neurological: Positive for tremors and weakness. Negative for dizziness and headaches. ACTIVE PROBLEM LIST Essential Tremor Upper GI Bleed Environmental Allergies Chronic Obstructive Pulmonary Disease (Hcc) Primary Hypertension Hyperlipidemia Age-Related Osteoporosis Without Current Pathological Fracture Lung Nodule Chronic Respiratory Failure With Hypoxia (Hcc) Duodenal Ulcer Paroxysmal Atrial Fibrillation (Hcc) Pneumonia Due to Infectious Organism Anemia Requiring Transfusions Dysphagia Antibiotic-Associated Diarrhea Pulmonary Emphysema (Hcc) Former Smoker Nstemi (Non-St Elevated Myocardial Infarction) (Hcc) History of GI Bleed History of Copd Pleural Effusion Malnutrition of Mild Degree (Hcc) Esrd (End Stage Renal Disease) (Hcc) Gastrointestinal Hemorrhage Associated With Peptic Ulcer Volume Overload Hemodialysis Catheter Malfunction (Hcc) Coronary Artery Disease Coagulation Defect, Unspecified (Hcc) Social History Tobacco Use Smoking status: Former Packs/day: 0.50 Years: 34.00 Additional pack years: 0.00 Total pack years: 17.00 Types: Cigarettes Start date: 1974 Quit date: 05/23/2016 Years since quittin.2 Smokeless tobacco: Never Tobacco comments: Resumed short period. Quit for good 05/2016. Vaping Use Vaping Use: Never used Substance Use Topics Alcohol use: No Drug use: No Current Outpatient Medications Medication Sig OXYGEN, HOME THERAPY, Inhale 3 L/min as instructed as directed. 3L NC continuous, up to 4L with exertion acetaminophen (TYLENOL) 325 mg tablet Take 650 mg by mouth every 6 hours as needed. nitroglycerin sublingual (NITROSTAT) 0.4 mg SL tablet Dissolve 0.4 mg under the tongue every 5 minutes as needed for chest pain. polyethylene glycol 3350 (MIRALAX) 17 gram/dose powder Take 17 g by mouth as needed for constipation. Dissolve dose in 4 - 8 ounces of liquid and take as directed. levoFLOXacin (LEVAQUIN) 500 mg tablet Take 1 tablet by mouth every 48 hours. amLODIPine (NORVASC) 5 mg tablet Take 5 mg by mouth every morning. ondansetron orally disintegrating (ZOFRAN ODT) 4 mg disintegrating tablet Take 1 tablet by mouth every 8 hours as needed for nausea/vomiting. wwtyeujjtgn-ozjycbhnj-ytadutje (TRELEGY ELLIPTA) 100-62.5-25 mcg inhalation powder Inhale 1 Puff asinstructed once daily. isosorbide mononitrate ER (IMDUR) 60 mg 24 hr tablet Take 1 tablet by mouth once daily. Patient should start on August 04, 2023. sucralfate (CARAFATE) 1 gram tablet TAKE 1 TABLET BY MOUTH THREE TIMES DAILY at 7 AM, 11 AM and 4 pm sevelamer carbonate (RENVELA) 0.8 gram pwpk Take 0.8 g by mouth three times a day with meals. pantoprazole DR (PROTONIX) 40 mg tablet Take 1 tablet by mouth two times a day before meals. montelukast (SINGULAIR) 10 mg tablet Take 1 tablet by mouth daily at bedtime. metoprolol tartrate, short acting, (LOPRESSOR) 25 mg tablet Take 1 tablet by mouth every 12 hours. atorvastatin (LIPITOR) 80 mg tablet Take 1 tablet by mouth daily at bedtime. busPIRone (BUSPAR) 5 mg tablet Take 2 tablets by mouth two times a day. albuterol HFA (PROAIR HFA) 90 mcg/actuation inhaler Inhale 2 Puffs as instructed every 4 hours as needed. ipratropium-albuterol (DUONEB) 0.5 mg-3 mg(2.5 mg base)/3 mL nebu Inhale 3 mL as instructed every 4hours as needed for wheezing/shortness of breath. (Patient taking differently: Inhale 3 mL as instructed every 6 hours as needed for wheezing/shortness of breath.) fluticasone (FLONASE) 50 mcg/actuation nasal spray Use 2 Sprays in each nostril once daily. Rinse mouth after use. No current facility-administered medications for this visit. Objective BP 112/58 (BP Site: Left Arm, BP Position: Sitting, BP Cuff Size: Large Adult) Pulse 79 Temp 36.7 C (98 F) (Temporal) Wt 59.9 kg (132 lb) SpO2 99% BMI 22.66 kg/m Physical Exam Constitutional: General: She is not in acute distress. Appearance: She is ill-appearing. HENT: Head: Normocephalic. Right Ear: External ear normal. There is impacted cerumen. Left Ear: External ear normal. There is impacted cerumen. Eyes: Conjunctiva/sclera: Conjunctivae normal. Cardiovascular: Rate and Rhythm: Normal rate and regular rhythm. Heart sounds: No murmur heard. No gallop. Pulmonary: Effort: No respiratory distress. Breath sounds: Decreased air movement present. Rhonchi present. No wheezing or rales. Comments: On portable O2 via NC. Abdominal: General: There is no distension. Palpations: Abdomen is soft. Tenderness: There is no abdominal tenderness. Musculoskeletal: Right lower le+ Pitting Edema present. Left lower le+ Pitting Edema present. Neurological: General: No focal deficit present. Motor: Weakness present. Comments: Wheelchair bound. Assessment and Plan 1. Pneumonia due to infectious organism, unspecified laterality, unspecified part of lung - ICD9: 486, ICD10: J18.9 (primary diagnosis) Finish antibiotic. Follow up with pulmonary. 2. ESRD (end stage renal disease) ([facility]) - ICD9: 585.6, ICD10: N18.6 - CONSULT TO NEPHROLOGY. Local per patient preference. 3. Malnutrition of mild degree ([facility]) - ICD9: 263.1, ICD10: E44.1 Monitor. 4. Paroxysmal atrial fibrillation (HCC) - ICD9: 427.31, ICD10: I48.0 Anticoagulation discontinued due to GI bleeding. - CONSULT TO CARDIOLOGY 5. Chronic obstructive pulmonary disease with acute exacerbation (HCC) - ICD9: 491.21, ICD10: J44.1 Stable. - ALBUTEROL SULFATE HFA 90 MCG/ACTUATION AEROSOL INHALER 6. Duodenal ulcer - ICD9: 532.90, ICD10: K26.[address] Antunez 7. NSTEMI (non-ST elevated myocardial infarction) ([facility]) - ICD9: 410.70, ICD10: I21.4 Heart Group per patient preference. - CONSULT TO CARDIOLOGY 8. Chronic respiratory failure with hypoxia (HCC) - ICD9: 518.83, 799.02, ICD10: J96.11 On O2. 9. Anemia requiring transfusions - ICD9: 285.9, ICD10: D64.9 Check today. - CBC 10. Impacted cerumen of both ears - ICD9: 380.4, ICD10: H61.23 Lavage not successful. - AMBULATORY EAR LAVAGE/IRRIGATION - CONSULT TO ENT 11. Hyperlipidemia, unspecified hyperlipidemia type - ICD9: 272.4, ICD10: E78.5 - Control undetermined, due for labs - LIPID PANEL, NONFASTING - ATORVASTATIN 40 MG TABLET. Dose reduced due to dysphagia. Julio Draper MD [facility] Miscellaneous Notes* Telephone Encounter - Julio Draper MD - 08/23/2023 12:58 PM EST Okay. * Telephone Encounter - Michelle Griffin LPN - 08/23/2023 11:26 AM EST Blaire from [facility] Home Health calling with OT plan of care, 2 visits weekly for 4 weeks working on ADL's, strength and transfers. No need for call back. documented in this encounterP[facility]02[facility]24 Miscellaneous Notes* Telephone Encounter - Anushka Alexis LPN - 08/23/2023 9:14 AM EST Below response left on confidential vm. Anushka Alexis LPN * Telephone Encounter - Tasha Laureano APRN.CNP - 08/23/2023 8:37 AM EST Okay for social work consult Tasha Laureano APRN.MARIAN * Telephone Encounter - Danika Peterson RN - 08/22/2023 8:36 AM EST Genoveva- [facility]- reports she saw patient on Tuesday for resumption of care. Pt was d/c'd from [facility] on Tue. Dx: dialysis cath replaced, pneumonia. plans to see pt 2 x week for 1 week, then 1 x weekfor 3 weeks. Asking for verbal order for medical SW to see pt for high depression screen and anxiety. Reports pt has been in the hospital several times in the past month and was prescribed an AB for sepsis. After this went into kidney failure and with dialysis. Reports [facility] wrote consult for patientto see a telecommunicator in [place]. Pt does not want to travel and would like to see a telecommunicator in [place]. Advised pcp could write a referral but cardiologists sometimes book out 6 mths and patient may want to find out who she can see in a timely manner. Genoveva will let patient know this. Genoveva also reporting to pcp, patients med list was flagged for duplicate therapy on carafate and pantoprazole. Genoveva will look on bottle to see who prescribes these medications as it does ot appear these are prescribed by pcp. Please phone Genoveva with verbal for SW: [phone] documented in [facility] encounterP[facility]02-[facility]24 Miscellaneous Notes* Telephone Encounter - Julio Draper MD - 08/22/2023 5:06 PM EST Okay. * Telephone Encounter - Genna Lowry RN - 08/22/2023 1:33 PM EST Luna PT calling from [facility] to report plan of care for patient and physical therapy will visit patient 3 times a week for 2 weeks and 2 times a week for 2 weeks. Physical therapy will work with patient on gait, transfers, strengthening, and fall prevention. No Call back Needed Genna Lowry RN documented in this encounterP[facility]02-19-[facility]24 History of Present illness Narrative* Genna Elizabeth [facility] - 08/22/2023 7:11 AM EST TRANSITION CARE MANAGEMENT (TCM) PHARMACY CONTACT Provider Action/FYI: Unable to reach patient after unsuccessful outreach attempt. Left voicemail for patient including call back number to TCM pharmacist. TCM medication reconciliation incomplete at this time Patient unable to be reached after unsuccessful outreach attempt(s). No further attempts to contactpatient will be made. SUMMARY: -Pt discharged from [facility] on 08/19/23. -Medication review not done History of Present Illness: The following content has been copied and pasted from patient's discharge summary. If discharge summary unavailable, After Visit Summary or last pertinent inpatient notes are copied and pasted. Hospital Course: Patient is a 68-year-old female with past medical history significant for end-stage renal disease, COPD with chronic respiratory failure on 4 L of oxygen, recent NSTEMI with mild tomoderate coronary artery disease on heart cath, atrial fibrillation, recent GI bleed from duodenal ulcer presented to the ER with worsening shortness of breath and malfunctioning of her dialysis catheter. Patient was not able to receive dialysis due to catheter malfunction. She was getting more volume overloaded and short of breath. He was admitted for further evaluation management. Patient remained stable on 4 L of oxygen which is at baseline. She seen by nephrology and underwent dialysis catheter exchange by IR. She is resumed on hemodialysis per schedule. At the time of admission she was also noted to have elevated leukocytosis with elevated procalcitonin. Chest x-ray showed bibasilar opacities increasing on the left and treated empirically with antibiotics. Patient's leukocytosis and symptoms improved by discharge. Medication Reconciliation: Legend: Stopped, New, Changed, Added to list Medication List Medication Directions Comments Action/Plan albuterol HFA (PROAIR HFA) 90 mcg/actuation inhaler Inhale 2 Puffs as instructed every 4 hours as needed. amLODIPine (NORVASC) 5 mg tablet Take 5 mg by mouth every morning. Discontinued: 08/19/2023 11:35 AM atorvastatin (LIPITOR) 80 mg tablet Take 1 tablet by mouth daily at bedtime. Discontinued: 08/19/2023 11:35 AM busPIRone (BUSPAR) 5 mg tablet Take 2 tablets by mouth two times a day. Discontinued: 08/19/2023 11:35 AM fluticasone (FLONASE) 50 mcg/actuation nasal spray Use 2 Sprays in each nostril once daily. Rinse mouth after use. lphztjpxonl-cumnerbue-lpmzeqim (TRELEGY ELLIPTA) 100-62.5-25 mcg inhalation powder Inhale 1 Puff asinstructed once daily. ipratropium-albuterol (DUONEB) 0.5 mg-3 mg(2.5 mg base)/3 mL nebu Inhale 3 mL as instructed every 4hours as needed for wheezing/shortness of breath. isosorbide mononitrate ER (IMDUR) 60 mg 24 hr tablet Take 1 tablet by mouth once daily. Patient should start on August 04, 2023. levoFLOXacin (LEVAQUIN) 500 mg tablet Take 1 tablet by mouth every 48 hours. metoprolol tartrate, short acting, (LOPRESSOR) 25 mg tablet Take 1 tablet by mouth every 12 hours. montelukast (SINGULAIR) 10 mg tablet Take 1 tablet by mouth daily at bedtime. ondansetron orally disintegrating (ZOFRAN ODT) 4 mg disintegrating tablet Take 1 tablet by mouth every 8 hours as needed for nausea/vomiting. pantoprazole DR (PROTONIX) 40 mg tablet Take 1 tablet by mouth two times a day before meals. sevelamer carbonate (RENVELA) 0.8 gram pwpk Take 0.8 g by mouth three times a day with meals. sucralfate (CARAFATE) 1 gram tablet TAKE 1 TABLET BY MOUTH THREE TIMES DAILY at 7 AM, 11 AM and 4 pm Preferred pharmacy: [facility] [address] [place] [address] - [address] [facility] [phone] [address] [facility] [address] Estimated Creatinine Clearance: 7.6 mL/min (A) (based on SCr of 6.18 mg/dL (H)). Estimated Glomerular Filtration Rate (mL/min/1.73m ) Date Value 08/18/2023 7 (L) eGFR- (no units) Date Value 04/05/2020 >60 Additional follow up: Next 5 Appointments Date and Time Provider Department Dept Phone 10/24/2023 3:[address] [facility] (I-STAT) RADIO CT SCAN [facility] [phone] 11/08/2023 2:30 PM Luna Swartz [facility] [phone] 11/11/2023 3:20 PM Julio Draper [facility] [phone] Interventions Made: None Pharmacist Recommendations Made None Care Coordination: None at this time Time spent on patient: 0-15 minutes Genna Elizabeth RPh August 22, 2023 7:11 AM documented in this encounterPike [facility]02-13-2024 History of Present illness Narrative* Magali Nieves MD - 08/16/2023 1:30 PM EST Images from the original note were not included. . Respiratory [place] Note Patient name: Sneha Hendersonkler PCP: Julio Draper MD CC: Hospital follow-up HPI: Sneha Cardenas 68 year old female former less than [id number] smoker with PMH significant for essential tremor, HTN, COVID-pneumonia 04/2021, chronic hypoxemic respiratory failure, paroxysmal atrial fibrillation (not anticoagulated due to GIB), severe COPD/emphysema, groundglass opacities on chest imaging last seen in pulmonary clinic in February for abnormal chest imaging following hospitalization for pneumonia. She was admitted to [facility] with abdominal pain, nausea and vomiting. KUB pertinent for right-sided pleural effusion. She underwent thoracentesis which was concerning for possible empyema and thus transferred to [facility] for possible thoracic surgical intervention. She had acute on chronic hypoxemic respiratory failure in the face of acute kidney injury, non-STEMI requiring ICU admission and intubation. Chest tube was placed on July 10 and subsequently removed on the . Pleural fluid cultures were negative. She was treated with long course of antibiotics. CTA of the chest to rule out pulmonary embolism was negative but patient has evidence of a new right upper lobe spiculated nodule requiring follow-up. She has required dialysis for her EARNEST/ATN. Evaluation for her non- STEMI including a left heart catheterization 08/03/2023 which showed normal coronary anatomy. She was transferred to [facility] for rehabil itation but patient was only there for several days. She was unable to receive aggressive rehab dueto her 3 times weekly need for hemodialysis. She decided that she would be better served at home with physical therapy and Occupational Therapy. Today she is rather debilitated. Unable to weight-bear. She is requiring 4 L of oxygen, previously on 2 L. No current cough, chest pain or sputum production. She is short of breath with minimal activity. Appetite is poor. Currently having issues with lower extremity edema as her dialysis catheter is nonfunctioning. DME: [employer] 4 L increased from 2 L DATA: Reviewed EMR from recent hospital stay at [facility] and [facility] with details in HPI Labs: Component Ref Range & Units 3 d ago Sodium 135 - 145 mmol/L 133 Low Potassium 3.5 - 5.1 mmol/L 4.0 Chloride 98 - 107 mmol/L 97 Low CO2 22 - 30 mmol/L 32 High BUN 7 - 17 mg/dL 18 High Creatinine 0.52 - 1.04 mg/dL 2.90 High Glucose 70 - 100 mg/dL 108 High Calcium 8.4 - 10.4 mg/dL 8.3 Low Anion Gap 3 - 13 mmol/L 4 eGFR >60.0 mL/min/1.73m*2 17.2 Low Pleural fluid: Glucose 7 Protein 3.3 LDH 876 Component Ref Range & Units 1 mo ago Diff Total Body Fluid cells counted 100 Neut%, BF 0 - 1 % 93 High Lymph%, BF 18 - 36 % 2 Low Robertson%, BF % 4 Macro%, BF 64 - 80 % 1 Low FINAL DIAGNOSIS A - PLEURAL FLUID. Negative for malignant cells. Histiocytes and mesothelial cells. Culture No growth 5 days Smear Result No organisms seen Many Polymorphonuclear leukocytes Gram stain performed on cytospun specimen. Imaging / Diagnostic Studies: DATE OF EXAM: Jul 23 2023 7:40PM [facility] 0540 - CT CHEST W IVCON PE / Comparison: 07/14/2023, 07/10/2023 RESULT: Limitations: None. Evaluation for thromboembolic disease: - Right heart chambers: No thromboembolic disease. - Main pulmonary arteries: No thromboembolic disease. - Lobar pulmonary arteries: No thromboembolic disease. - Segmental pulmonary arteries: No thromboembolic disease. - Subsegmental pulmonary arteries: No thromboembolic disease. - Additional pulmonary artery findings: The main pulmonary artery is normal in caliber. Lines, tubes, and devices: Right central venous catheter which appears to extend to the cavoatrial junction. Lung parenchyma, pleural space and airways: 8 mm peripheral anterolateral right upper lobe nodule on image 42 of series 5 is unchanged from recent prior exams although new compared to remote studies and is concerning for a possible neoplasm. There is a 7 mm subpleural nodule at the medial left lungapex which could represent nodule or scar. Emphysematous changes are again seen bilaterally. As demonstrated on the study of 9 days ago, alveolar opacities are present bilaterally, most pronounced within the upper lobes, right greater than left. These do appear improved and likely represent a resolving infectious process such as pneumonia. There is bilateral lower lobe bronchial wall thickening. Trace left and [id number] right pleural effusion. Mild calcified pleural plaques. Lower neck, lymph nodes, and mediastinum: Stable small and borderline enlarged mediastinal and hilar nodes. No thyroid nodule. Heart, pericardium, and thoracic vessels: The thoracic aorta is normal in caliber. The cardiac chambers are normal in size. No coronary artery atherosclerotic calcifications are noted, although the study is not optimized for coronary assessment. No pericardial effusion or thickening. Bones and soft tissues: Right shoulder prosthesis. No acute bony abnormality. Upper abdomen: No abnormality in the imaged upper abdomen. IMPRESSION: 1. No pulmonary emboli. 2. Trace left and small to moderate right pleural effusion. 3. Persistent, although improving, alveolar opacities bilaterally, most pronounced at the upper lobes. This likely represents resolving infection/pneumonia. 4. 8 mm right upper lobe nodule and 7 mm subpleural left upper lobe nodule for which follow-up is recommended. 5. Lower lobe bronchial wall thickening. I personally reviewed the images and agree with the above assessment PAST MEDICAL HISTORY Diagnosis Date Anemia requiring transfusions 06/15/2023 Asthma Benign essential tremor COPD (chronic obstructive pulmonary disease) ([facility]) 07/25/2012 FEV1 0.84L (32%), 10/18/2014 DDD (degenerative disc disease), cervical 08/15/2015 Environmental allergies Wheezes with hay or dust Essential and other specified forms of tremor 11/02/2007 Benign essential -- started primidone 06/03/09, Dr. Nguyễn History of colon polyps 2010 Tubular adenoma. Hypertension Hypoxemia 05/01/2021 Post Covid pneumonia. Irritable bowel syndrome Migraine headache Improved with primidone Multiple duodenal ulcers 06/30/2023 NSTEMI (non-ST elevated myocardial infarction) ([facility]) 07/20/2023 Pneumonia due to COVID-19 virus 05/01/2021 Scoliosis Snoring Tobacco use disorder Quit 03/04/2015. Unspecified gastritis and gastroduodenitis without mention of hemorrhage 02/09/2010 Small ulcer on EGD 2009 ALLERGIES Allergen Reactions Keflex [Cephalexin] Intolerance Tachycardia, palpitations. fluticasone propion-salmeterol (AIRDUO RESPICLICK) 113-14 mcg/actuation breath activated inhaler Inhale 1 Puff as instructed. amLODIPine (NORVASC) 5 mg tablet Take 5 mg by mouth every morning. ondansetron orally disintegrating (ZOFRAN ODT) 4 mg disintegrating tablet Take 1 tablet by mouth every 8 hours as needed for nausea/vomiting. erracgecjsy-iblimmjjy-alcrinlp (TRELEGY ELLIPTA) 100-62.5-25 mcg inhalation powder Inhale 1 Puff asinstructed once daily. isosorbide mononitrate ER (IMDUR) 60 mg 24 hr tablet Take 1 tablet by mouth once daily. Patient should start on August 04, 2023. clopidogrel (PLAVIX) 75 mg tablet Take 1 tablet by mouth once daily. Patient should start on August 04, 2023. aspirin 81 mg chewable tablet Take 1 tablet by mouth once daily. Patient should start on August 04, 2023. sucralfate (CARAFATE) 1 gram tablet TAKE 1 TABLET BY MOUTH THREE TIMES DAILY at 7 AM, 11 AM and 4 pm sevelamer carbonate (RENVELA) 0.8 gram pwpk Take 0.8 g by mouth three times a day with meals. pantoprazole DR (PROTONIX) 40 mg tablet Take 1 tablet by mouth two times a day before meals. montelukast (SINGULAIR) 10 mg tablet Take 1 tablet by mouth daily at bedtime. metoprolol tartrate, short acting, (LOPRESSOR) 25 mg tablet Take 1 tablet by mouth every 12 hours. atorvastatin (LIPITOR) 80 mg tablet Take 1 tablet by mouth daily at bedtime. busPIRone (BUSPAR) 5 mg tablet Take 2 tablets by mouth two times a day. albuterol HFA (PROAIR HFA) 90 mcg/actuation inhaler Inhale 2 Puffs as instructed every 4 hours as needed. ipratropium-albuterol (DUONEB) 0.5 mg-3 mg(2.5 mg base)/3 mL nebu Inhale 3 mL as instructed every 4hours as needed for wheezing/shortness of breath. fluticasone (FLONASE) 50 mcg/actuation nasal spray Use 2 Sprays in each nostril once daily. Rinse mouth after use. budesonide (PULMICORT) 0.5 mg/2 mL nebulizer solution Use 2 mL via nebulizer two times a day. (Patient not taking: Reported on 08/16/2023) Social History Tobacco Use Smoking status: Former Packs/day: 0.50 Years: 34.00 Additional pack years: 0.00 Total pack years: 17.00 Types: Cigarettes Start date: 1974 Quit date: 05/23/2016 Years since quittin.2 Smokeless tobacco: Never Tobacco comments: Resumed short period. Quit for good 05/2016. Vaping Use Vaping Use: Never used Substance Use Topics Alcohol use: No Drug use: No FAMILY HISTORY Adopted: Yes Problem Relation Age of Onset Scoliosis Daughter Natural daughter. PAST SURGICAL HISTORY Procedure Laterality Date ARTHROPLASTY TOTAL SHOULDER Right 02/2018 [facility]. Garo Stanford MD BREAST BIOPSY Left 30 [...] LAPS SURG CHOLECYSTECTOMY W/CHOLANGIOGRAPHY 12/12/2007 Normal IOC LEFT HEART CATH,PERCUTANEOUS 08/03/2023 mild CAD PAST SURGICAL HISTORY OF multiple several tubal pregnancies, tubes both removed over several surgeries PAST SURGICAL HISTORY OF 1993 left inguinal hernia with mesh PAST SURGICAL HISTORY OF 1989 Hemorrhoid surgery x2 TONSILLECTOMY & ADENOIDECTOMY <AGE 13 PMH, Social history, family history and surgical history reviewed and updated in EMR REVIEW OF SYSTEMS: CONSTITUTIONAL: No fevers, chills, nightsweats. Fatigue, weight loss HEENT: Denies frequent or severe heaches, nasal congestion/sinus symptoms, allergy problems. EYES: No diplopia or blurry vision. CARDIOVASCULAR: No chest pain, palpitations, orthopnea, PND. Edema PULM: No dyspnea, unexplained cough. GI: No dysphagia/odynophagia, problematic reflux, constipation, diarrhea, changes in stool habits.poor appetite but no nausea or vomiting : No dysuria, gross hematuria or pyuria. NEURO: No new balance problems, peripheral weakness/paresthesias or numbness of concern. MUSC-SKEL: Muscle weakness. Nonweightbearing PSY: Depression and anxiety INTEGUMENTARY: No skin rashes. Dry skin please see following she PHYSICAL EXAMINATION: BP 120/82 Pulse 74 SpO2 99[5L]% RR 18 General Appearance: Chronically ill appearing, in wheelchair. Skin: Skin color, texture, turgor normal, no suspicious rashes or lesions. Head: Normocephalic, no masses, lesions, tenderness or abnormalities. Eyes: Sclera, conjunctiva normal. Oropharynx: Dry mucosa, no lesions. Neck: No JVD, no masses, no TM. Lungs: Not labored, very diminished breath sounds. No wheezes or crackles Heart: RRR, soft systolic murmurs. Extremities: Bilateral LE edema, no clubbing. Musculoskeletal: No joint deformities or effusions. Neurologic: Alert and oriented, no focal findings. Lymph Nodes: No cervical lymphadenopathy and No supraclavicular lymphadenopathy. Assessment/Plan: Parapneumonic effusion, complicated -Status post chest tube placement -Last chest CT with persistent pleural effusion -Repeat CT of chest Chronic hypoxemic respiratory failure -Increased oxygen requirement following severe illness -Continue 4 L -May be able to decrease oxygen over time if clinical improvement Persistent/unresolving PNA -Groundglass opacities on chest imaging requiring follow-up Centrilobular emphysema -Continued tobacco free state -Restart Trelegy Ellipta EARNEST/ATN -Renal function slightly improved -Last GFR 17 -Following with nephrology Hemodialysis -Currently requiring hemodialysis 3 times a week -Following with nephrology Lung nodule -New right upper lobe spiculated nodule -Repeat chest CT I spent a total of 64 minutes on the date of the service which included preparing to see the patient, [id number] patient care, completing clinical documentation, obtaining and/or reviewing separately obtained history, performing a medically appropriate examination, ordering medications, tests, or procedures, and independently interpreting results (not separately reported). Activity Duration Pre-charting < 1 minute Chart accessed 2 minutes Exam room 11 minutes Chart accessed 5 minutes Chart accessed < 1 minute Chart accessed 7 minutes Current session 37 minutes Total time: 1 hour 4 minutes Magali Nieves MD [facility] [place] [facility] Miscellaneous Notes* Telephone Encounter - Saumya Sheth RN - 08/15/2023 3:14 PM EST nurse Carlos A @ [facility] calling to let PCP know nursing saw patient today for resumption of care. Nursing will see patient 2 x/week for two weeks and 1 x/week for one week for disease and medication education. She has been started on dialysis. She has had some swallowing issues and has a referral to Speech Therapy per [facility]. She has a Discharge f/u scheduled with PCP on 08/18/23. No call back needed. Saumya Sheth, RN [facility] Miscellaneous Notes* Telephone Encounter - Abimbola Lewis LPN - 08/15/2023 1:37 PM EST Faxed to [facility]. Abimbola Lewis LPN * Telephone Encounter - Nadege Ruelas RN - 08/15/2023 9:53 AM EST [facility] called. States the patient would like to go back on tanks. Please send order. documented in [facility] History of Present illness Narrative* Rafael Serna MD - 08/12/2023 1:49 PM EST Subsequent visit yesterday documented in this [facility]02-07-2024 Miscellaneous Notes* Telephone Encounter - Tonya Ontiveros - 08/10/2023 8:07 AM ESTSummary: New patient information Patient is scheduled with you NEW for COPD on 08/16/23. Hospital follow up requested a CT chest in 3-6 months from 08/01/23. For your information. Tonya Ontiveros documented in this [facility]02[facility] Miscellaneous Notes* Telephone Encounter - Ericka Christopher LPN - 08/09/2023 1:31 PM EST Faxed to number on the form. * Telephone Encounter - Julio Draper MD - 08/09/2023 1:16 PM EST Completed best as I could. Patient in acute rehab facility in [place]. * Telephone Encounter - Ericka Christopher LPN - 08/09/2023 10:56 AM EST Previously faxed to [employer] was FMLA on 07/19/23 and again 08/02/23. This is short term disability form. * Telephone Encounter - Julio Draper MD - 08/08/2023 7:25 PM EST Please check if this is duplicated. * Telephone Encounter - Franky Muro Ma - 08/08/2023 10:17 AM EST Type of form: Short-term Disability Form received via walk in When form is completed, contact patient Form has been forwarded to Physician Desk: Dr. Draper. Franky Muro Ma documented in this encounterP[facility]02[facility] Miscellaneous Notes* Telephone Encounter - Chris Samaniego - 08/09/2023 10:34 AM ESTSummary: appt/ f/u I called pt to schedule Hospital f/u appointment she is still in hospital. Can't schedule. Chris Samaniego August 09, 2023 10:41 AM documented in this [facility]02[facility] Miscellaneous Notes* Telephone Encounter - Harry Espinoza APRN.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 - 08/05/2023 3:46 PM EST Patient seen in hospital for Chest pain. Please make a hospital follow up appointment to be seen by Dr. Rock or Nurse practitioner in 6-8 weeks. Thank you, Harry Espinoza APRN.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 documented in this encounterP[facility]01-[facility]24 History of Past illness Narrative* Problem Noted Date Diagnosed Date Resolved Date Acute respiratory failure with hypoxia 07/24/2023 08/25/2023 EARNEST (acute kidney injury) 07/20/2023 Elevated troponin 07/20/2023 08/25/2023 Shock, septic 07/11/2023 08/25/2023 Acute on chronic hypoxic respiratory failure 08/25/2023 Empyema 07/09/2023 08/25/2023 Elevated blood pressure reading 05/03/2022 08/25/2023 Hypoxemia 05/01/2021 08/25/2023 Overview: Post Covid pneumonia. Cervical disc disorder with radiculopathy 08/15/2015 02/10/2017 DDD (degenerative disc disease), cervical 08/15/2015 02/10/2017 Essential hypertension, benign 05/17/2011 07/15/2015 Unspecified gastritis and ga stroduodenitis without mention of hemorrhage 02/09/2010 07/15/2015 Overview: Small ulcer on EGD 2009 Blood in stool 02/09/2010 07/20/2012 Loss of weight 02/09/2010 07/20/2012 Acute gastritis without mention of hemorrhage 02/10/20 10 07/20/2012 Other specified disorder of gallbladder 12/11/2007 07/20/2012 Tobacco use disorder 11/02/2007 017 Overview: Since age 19 Migraine headache 07/15/2015 Overview: improved with primidone Irritable bowel syndrome 06/2016 Scoliosis 02/10/2017 History of colon polyps 07/04 Overview: 2009 tubular adenoma Asthma 02/15/2019 documented as of this encounter (statuses as of 08/25/2023) [facility] Past illness Narrative* Problem Noted Date Diagnosed Date Resolved Date Acute respiratory failure with hypoxia 07/24/2023 08/25/2023 EARNEST (acute kidney injury) 07/20/2023 Elevated troponin 07/20/2023 08/25/2023 Shock, septic 07/11/2023 08/25/2023 Acute on chronic hypoxic respiratory failure 08/25/2023 Empyema 07/09/2023 08/25/2023 Elevated blood pressure reading 05/03/2022 08/25/2023 Hypoxemia 05/01/2021 08/25/2023 Overview: Post Covid pneumonia. Cervical disc disorder with radiculopathy 08/15/2015 02/10/2017 DDD (degenerative disc disease), cervical 08/15/2015 02/10/2017 Essential hypertension, benign 05/17/2011 07/15/2015 Unspecified gastritis and ga stroduodenitis without mention of hemorrhage 02/09/2010 07/15/2015 Overview: Small ulcer on EGD 2009 Blood in stool 02/09/2010 07/20/2012 Loss of weight 02/09/2010 07/20/2012 Acute gastritis without mention of hemorrhage 02/10/20 10 07/20/2012 Other specified disorder of gallbladder 12/11/2007 07/20/2012 Tobacco use disorder 11/02/2007 017 Overview: Since age 19 Migraine headache 07/15/2015 Overview: improved with primidone Irritable bowel syndrome 06/2016 Scoliosis 02/10/2017 History of colon polyps 07/04 Overview: 2009 tubular adenoma Asthma 02/15/2019 documented as of this encounter (statuses as of 08/25/2023) [facility] Narrative* Problem Noted Date Diagnosed Date Resolved Date Acute respiratory failure with hypoxia 07/24/2023 08/25/2023 EARNEST (acute kidney injury) 07/20/2023 Elevated troponin 07/20/2023 08/25/2023 Shock, septic 07/11/2023 08/25/2023 Acute on chronic hypoxic respiratory failure 08/25/2023 Empyema 07/09/2023 08/25/2023 Elevated blood pressure reading 05/03/2022 08/25/2023 Hypoxemia 05/01/2021 08/25/2023 Overview: Post Covid pneumonia. Cervical disc disorder with radiculopathy 08/15/2015 02/10/2017 DDD (degenerative disc disease), cervical 08/15/2015 02/10/2017 Essential hypertension, benign 05/17/2011 07/15/2015 Unspecified gastritis and ga stroduodenitis without mention of hemorrhage 02/09/2010 07/15/2015 Overview: Small ulcer on EGD 2009 Blood in stool 02/09/2010 07/20/2012 Loss of weight 02/09/2010 07/20/2012 Acute gastritis without mention of hemorrhage 02/10/20 10 07/20/2012 Other specified disorder of gallbladder 12/11/2007 07/20/2012 Tobacco use disorder 11/02/2007 017 Overview: Since age 19 Migraine headache 07/15/2015 Overview: improved with primidone Irritable bowel syndrome 06/2016 Scoliosis 02/10/2017 History of colon polyps 07/04 Overview: 2010 tubular adenoma Asthma 02/15/2019 documented as of this encounter (statuses as of 09/01/2023) [facility] Narrative* Problem Noted Date Diagnosed Date Resolved Date Acute respiratory failure with hypoxia 07/24/2023 08/25/2023 EARNEST (acute kidney injury) 07/20/2023 Elevated troponin 07/20/2023 08/25/2023 Shock, septic 07/11/2023 08/25/2023 Acute on chronic hypoxic respiratory failure 08/25/2023 Empyema 07/09/2023 08/25/2023 Elevated blood pressure reading 05/03/2022 08/25/2023 Hypoxemia 05/01/2021 08/25/2023 Overview: Post Covid pneumonia. Cervical disc disorder with radiculopathy 08/15/2015 02/10/2017 DDD (degenerative disc disease), cervical 08/15/2015 02/10/2017 Essential hypertension, benign 05/17/2011 07/15/2015 Unspecified gastritis and ga stroduodenitis without mention of hemorrhage 02/09/2010 07/15/2015 Overview: Small ulcer on EGD 2009 Blood in stool 02/09/2010 07/20/2012 Loss of weight 02/09/2010 07/20/2012 Acute gastritis without mention of hemorrhage 02/10/20 10 07/20/2012 Other specified disorder of gallbladder 12/11/2007 07/20/2012 Tobacco use disorder 11/02/2007 017 Overview: Since age 19 Migraine headache 07/15/2015 Overview: improved with primidone Irritable bowel syndrome 06/2016 Scoliosis 02/10/2017 History of colon polyps 07/04 Overview: 2010 tubular adenoma Asthma 02/15/2019 documented as of this encounter (statuses as of 09/01/2023) [facility] Narrative* Problem Noted Date Diagnosed Date Resolved Date Acute respiratory failure with hypoxia 07/24/2023 08/25/2023 EARNEST (acute kidney injury) 07/20/2023 Elevated troponin 07/20/2023 08/25/2023 Shock, septic 07/11/2023 08/25/2023 Acute on chronic hypoxic respiratory failure 08/25/2023 Empyema 07/09/2023 08/25/2023 Elevated blood pressure reading 05/03/2022 08/25/2023 Hypoxemia 05/01/2021 08/25/2023 Overview: Post Covid pneumonia. Cervical disc disorder with radiculopathy 08/15/2015 02/10/2017 DDD (degenerative disc disease), cervical 08/15/2015 02/10/2017 Essential hypertension, benign 05/17/2011 07/15/2015 Unspecified gastritis and ga stroduodenitis without mention of hemorrhage 02/09/2010 07/15/2015 Overview: Small ulcer on EGD 2009 Blood in stool 02/09/2010 07/20/2012 Loss of weight 02/09/2010 07/20/2012 Acute gastritis without mention of hemorrhage 02/10/2007/20/2012 Other specified disorder of gallbladder 12/11/2007 07/20/2012 Tobacco use disorder 11/02/2007 017 Overview: Since age 19 Migraine headache 07/15/2015 Overview: improved with primidone Irritable bowel syndrome 06/2016 Scoliosis 02/10/2017 History of colon polyps 07/04 Overview: 2010 tubular adenoma Asthma 02/15/2019 documented as of this encounter (statuses as of 09/04/2023) [facility] Narrative* Problem Noted Date Diagnosed Date Resolved Date Acute respiratory failure with hypoxia 07/24/2023 08/25/2023 EARNEST (acute kidney injury) 07/20/2023 Elevated troponin 07/20/2023 08/25/2023 Shock, septic 07/11/2023 08/25/2023 Acute on chronic hypoxic respiratory failure 08/25/2023 Empyema 07/09/2023 08/25/2023 Elevated blood pressure reading 05/03/2022 08/25/2023 Hypoxemia 05/01/2021 08/25/2023 Overview: Post Covid pneumonia. Cervical disc disorder with radiculopathy 08/15/2015 02/10/2017 DDD (degenerative disc disease), cervical 08/15/2015 02/10/2017 Essential hypertension, benign 05/17/2011 07/15/2015 Unspecified gastritis and ga stroduodenitis without mention of hemorrhage 02/09/2010 07/15/2015 Overview: Small ulcer on EGD 2009 Blood in stool 02/09/2010 07/20/2012 Loss of weight 02/09/2010 07/20/2012 Acute gastritis without mention of hemorrhage 02/10/2007/20/2012 Other specified disorder of gallbladder 12/11/2007 07/20/2012 Tobacco use disorder 11/02/2007 017 Overview: Since age 19 Migraine headache 07/15/2015 Overview: improved with primidone Irritable bowel syndrome 06/2016 Scoliosis 02/10/2017 History of colon polyps 07/04 Overview: 2010 tubular adenoma Asthma 02/15/2019 documented as of this encounter (statuses as of 09/07/2023) [facility] Narrative* Problem Noted Date Diagnosed Date Resolved Date Acute respiratory failure with hypoxia 07/24/2023 08/25/2023 EARNEST (acute kidney injury) 07/20/2023 Elevated troponin 07/20/2023 08/25/2023 Shock, septic 07/11/2023 08/25/2023 Acute on chronic hypoxic respiratory failure 08/25/2023 Empyema 07/09/2023 08/25/2023 Elevated blood pressure reading 05/03/2022 08/25/2023 Hypoxemia 05/01/2021 08/25/2023 Overview: Post Covid pneumonia. Cervical disc disorder with radiculopathy 08/15/2015 02/10/2017 DDD (degenerative disc disease), cervical 08/15/2015 02/10/2017 Essential hypertension, benign 05/17/2011 07/15/2015 Unspecified gastritis and ga stroduodenitis without mention of hemorrhage 02/09/2010 07/15/2015 Overview: Small ulcer on EGD 2009 Blood in stool 02/09/2010 07/20/2012 Loss of weight 02/09/2010 07/20/2012 Acute gastritis without mention of hemorrhage 02/10/20 10 07/20/2012 Other specified disorder of gallbladder 12/11/2007 07/20/2012 Tobacco use disorder 11/02/2007 017 Overview: Since age 19 Migraine headache 07/15/2015 Overview: improved with primidone Irritable bowel syndrome 06/2016 Scoliosis 02/10/2017 History of colon polyps 07/04 Overview: 2009 tubular adenoma Asthma 02/15/2019 documented as of this encounter (statuses as of 09/12/2023) [facility] Narrative* Problem Noted Date Diagnosed Date Resolved Date Acute respiratory failure with hypoxia 07/24/2023 08/25/2023 EARNEST (acute kidney injury) 07/20/2023 Elevated troponin 07/20/2023 08/25/2023 Shock, septic 07/11/2023 08/25/2023 Acute on chronic hypoxic respiratory failure 08/25/2023 Empyema 07/09/2023 08/25/2023 Elevated blood pressure reading 05/03/2022 08/25/2023 Hypoxemia 05/01/2021 08/25/2023 Overview: Post Covid pneumonia. Cervical disc disorder with radiculopathy 08/15/2015 02/10/2017 DDD (degenerative disc disease), cervical 08/15/2015 02/10/2017 Essential hypertension, benign 05/17/2011 07/15/2015 Unspecified gastritis and ga stroduodenitis without mention of hemorrhage 02/09/2010 07/15/2015 Overview: Small ulcer on EGD 2009 Blood in stool 02/09/2010 07/20/2012 Loss of weight 02/09/2010 07/20/2012 Acute gastritis without mention of hemorrhage 02/10/20 10 07/20/2012 Other specified disorder of gallbladder 12/11/2007 07/20/2012 Tobacco use disorder 11/02/2007 017 Overview: Since age 19 Migraine headache 07/15/2015 Overview: improved with primidone Irritable bowel syndrome 06/2016 Scoliosis 02/10/2017 History of colon polyps 07/04 Overview: 2010 tubular adenoma Asthma 02/15/2019 documented as of this encounter (statuses as of 09/14/2023) [facility] Narrative* Problem Noted Date Diagnosed Date Resolved Date Acute respiratory failure with hypoxia 07/24/2023 08/25/2023 EARNEST (acute kidney injury) 07/20/2023 Elevated troponin 07/20/2023 08/25/2023 Shock, septic 07/11/2023 08/25/2023 Acute on chronic hypoxic respiratory failure 08/25/2023 Empyema 07/09/2023 08/25/2023 Elevated blood pressure reading 05/03/2022 08/25/2023 Hypoxemia 05/01/2021 08/25/2023 Overview: Post Covid pneumonia. Cervical disc disorder with radiculopathy 08/15/2015 02/10/2017 DDD (degenerative disc disease), cervical 08/15/2015 02/10/2017 Essential hypertension, benign 05/17/2011 07/15/2015 Unspecified gastritis and ga stroduodenitis without mention of hemorrhage 02/09/2010 07/15/2015 Overview: Small ulcer on EGD 2009 Blood in stool 02/09/2010 07/20/2012 Loss of weight 02/09/2010 07/20/2012 Acute gastritis without mention of hemorrhage 02/10/20 10 07/20/2012 Other specified disorder of gallbladder 12/11/2007 07/20/2012 Tobacco use disorder 11/02/2007 017 Overview: Since age 19 Migraine headache 07/15/2015 Overview: improved with primidone Irritable bowel syndrome 06/2016 Scoliosis 02/10/2017 History of colon polyps 07/04 Overview: 2009 tubular adenoma Asthma 02/15/2019 documented as of this encounter (statuses as of 09/15/2023) [facility] Narrative* Problem Noted Date Diagnosed Date Resolved Date Acute respiratory failure with hypoxia 07/24/2023 08/25/2023 EARNEST (acute kidney injury) 07/20/2023 Elevated troponin 07/20/2023 08/25/2023 Shock, septic 07/11/2023 08/25/2023 Acute on chronic hypoxic respiratory failure 08/25/2023 Empyema 07/09/2023 08/25/2023 Elevated blood pressure reading 05/03/2022 08/25/2023 Hypoxemia 05/01/2021 08/25/2023 Overview: Post Covid pneumonia. Cervical disc disorder with radiculopathy 08/15/2015 02/10/2017 DDD (degenerative disc disease), cervical 08/15/2015 02/10/2017 Essential hypertension, benign 05/17/2011 07/15/2015 Unspecified gastritis and ga stroduodenitis without mention of hemorrhage 02/09/2010 07/15/2015 Overview: Small ulcer on EGD 2009 Blood in stool 02/09/2010 07/20/2012 Loss of weight 02/09/2010 07/20/2012 Acute gastritis without mention of hemorrhage 02/10/20 10 07/20/2012 Other specified disorder of gallbladder 12/11/2007 07/20/2012 Tobacco use disorder 11/02/2007 017 Overview: Since age 19 Migraine headache 07/15/2015 Overview: improved with primidone Irritable bowel syndrome 06/2016 Scoliosis 02/10/2017 History of colon polyps 07/04 Overview: 2009 tubular adenoma Asthma 02/15/2019 documented as of this encounter (statuses as of 09/19/2023) [facility] Narrative* Problem Noted Date Diagnosed Date Resolved Date Acute respiratory failure with hypoxia 07/24/2023 08/25/2023 EARNEST (acute kidney injury) 07/20/2023 Elevated troponin 07/20/2023 08/25/2023 Shock, septic 07/11/2023 08/25/2023 Acute on chronic hypoxic respiratory failure 08/25/2023 Empyema 07/09/2023 08/25/2023 Elevated blood pressure reading 05/03/2022 08/25/2023 Hypoxemia 05/01/2021 08/25/2023 Overview: Post Covid pneumonia. Cervical disc disorder with radiculopathy 08/15/2015 02/10/2017 DDD (degenerative disc disease), cervical 08/15/2015 02/10/2017 Essential hypertension, benign 05/17/2011 07/15/2015 Unspecified gastritis and ga stroduodenitis without mention of hemorrhage 02/09/2010 07/15/2015 Overview: Small ulcer on EGD 2009 Blood in stool 02/09/2010 07/20/2012 Loss of weight 02/09/2010 07/20/2012 Acute gastritis without mention of hemorrhage 02/10/20 10 07/20/2012 Other specified disorder of gallbladder 12/11/2007 07/20/2012 Tobacco use disorder 11/02/2007 017 Overview: Since age 19 Migraine headache 07/15/2015 Overview: improved with primidone Irritable bowel syndrome 06/2016 Scoliosis 02/10/2017 History of colon polyps 07/04 Overview: 2009 tubular adenoma Asthma 02/15/2019 documented as of this encounter (statuses as of 09/23/2023) [facility] Narrative* Problem Noted Date Diagnosed Date Resolved Date Acute respiratory failure with hypoxia 07/24/2023 08/25/2023 EARNEST (acute kidney injury) 07/20/2023 Elevated troponin 07/20/2023 08/25/2023 Shock, septic 07/11/2023 08/25/2023 Acute on chronic hypoxic respiratory failure 08/25/2023 Empyema 07/09/2023 08/25/2023 Elevated blood pressure reading 05/03/2022 08/25/2023 Hypoxemia 05/01/2021 08/25/2023 Overview: Post Covid pneumonia. Cervical disc disorder with radiculopathy 08/15/2015 02/10/2017 DDD (degenerative disc disease), cervical 08/15/2015 02/10/2017 Essential hypertension, benign 05/17/2011 07/15/2015 Unspecified gastritis and ga stroduodenitis without mention of hemorrhage 02/09/2010 07/15/2015 Overview: Small ulcer on EGD 2009 Blood in stool 02/09/2010 07/20/2012 Loss of weight 02/09/2010 07/20/2012 Acute gastritis without mention of hemorrhage 02/10/20 10 07/20/2012 Other specified disorder of gallbladder 12/11/2007 07/20/2012 Tobacco use disorder 11/02/2007 017 Overview: Since age 19 Migraine headache 07/15/2015 Overview: improved with primidone Irritable bowel syndrome 06/2016 Scoliosis 02/10/2017 History of colon polyps 07/04 Overview: 2010 tubular adenoma Asthma 02/15/2019 documented as of this encounter (statuses as of 10/10/2023) [facility] Consult note Author Pao Weeks [facility] July 08, 2023 2:46pm Note Date/Time July 08, 2023 2: 37pm [facility] Medical Records Department [address] [place] [address] 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 Julio Draper MD Status:A DM IN [facility] Assessment & Plan Assessment/Plan (1) Empyema of pleural space: (2) Anemia requiring transfusions: (3) Elevated blood pressure reading without diagnosis of hypertension: (4) Chronic hypoxemic respiratory failure: (5) EARNEST (acute kidney injury): (6) Atrial fibrillation: PLAN: Plan Assessment and Plan -Right lung empyema * Patient underwent right-sided thoracentesis which showed yellow cloudy fluid. Analysis shows exudative fluid with very low glucose of 7 with high LDH and elevated white count and neutrophil predominance. * Patient had right-sided pneumonia back in June and a parapneumonic effusion which was drained twice. She was treated with 10 day course antibiotics. At that time there were septations seen on thoracic ultrasound. Review of thoracic ultrasound on this admission shows persistent septations. Patient needs pigtail chest tube with tPA dornase and possibly will need VATS given the chronicity of her effusion in order to better control this infection. These capabilities are not available in our hospital. She is awaiting transfer for further thoracic evaluation * Continue Zosyn. MRSA swab was negative DC vancomycin * Patient will require at least 4-6 weeks of antibiotics depending on follow-up scan of the chest and her response. follow up pleural fluid cultures -COPD appears stable * cont budesonide and Duonebs -Chronic hypoxic resp failure, pt is at baseline 2-3L via NC -Chronic anemia -PUD -Out of bed to chair -DVT ppx as appropriate HPI Consult Data Date of Consult: 07/08/23 HPI Narrative Reason for Consultation: empyema HPI Narrative: SNEHA CARDENAS, is a 68 F with pmhx of severe copd w/chronic hypoxic respiratoryfailure, former smoker, history of frequent GI bleed due to peptic ulcer disease, and and chronic anemia. Patient presented with abdominal pain nausea and vomiting as well as pleuritic chest pain. Patient has had recent admission in June with right-sided pneumonia and parapneumonic pleural effusion. At that time she underwent thoracentesis and completed 10 days of antibiotics. Sheunderwent another thoracentesis shortly after the initial 1 but labs were not sent. She reports that she has been feeling unwell overall since then. She denies hematemesis, melena or fevers. She reports that she just feels nauseous and has vomited a few times. She also has pleuritic chest pain. Patient underwent abdominal CT scan for abdominal pain which showed bases of thelung with persistent right-sided pleural effusion. She underwent ultrasound-guided thoracentesis by IR which showed septation on thoracic ultrasound and couldonly drain 100 cc of cloudy fluid. [facility] Medical History (Updated 07/08/23 @ 14:[address] Pao Weeks MD) Anxiety Asthma Atrial fibrillation Benign essential hypertension Benign essential tremor COPD (chronic obstructive pulmonary disease) Former smoker Former tobacco use Lung nodules Migraines On home oxygen therapy Pneumonia due to COVID-19 virus Home Medications albuterol sulfate 90 mcg/actuation aerosol inhaler (Ventolin HFA) 2 puff inhalation Q4H PRN PRN Shortness Of Breath 08/28/15 [History Last Taken 07/06/23] montelukast 10 mg tablet 10 mg PO QHS ALLERGIES 02/25/18 [History Last Taken 07/06/23] fluticasone fur. 100 mcg-umeclid 62.5 mcg-vilant 25 mcg inhalat.powder (Trelegy Ellipta) 1 inh inhalation DAILY COPD 05/01/21 [History Last Taken 07/06/23] fluticasone propionate 50 mcg/actuation nasal spray,suspension 2 spray intranasal QHS ALLERGIES 05/01/21 [History Last Taken 07/06/23] buspirone 5 mg tablet 10 mg (2 x 5 mg) PO BID anxiety 30 days #120 tabs 06/16/23[Rx Last Taken 07/06/23] metoprolol tartrate 25 mg tablet 25 mg PO BID HTN 30 days #60 tabs 06/16/23 [Rx Last Taken 07/06/23] pantoprazole 40 mg tablet,delayed release (Protonix) 40 mg PO BID GERD 30 days #60 tabs 06/23/23 [Rx Last Taken 07/06/23] sucralfate 1 gram tablet 1 g PO 0700,1100,1600 GI 30 days #90 tabs 06/23/23 [Rx Last Taken 07/06/23] Allergy/AdvReac Type Severity Reaction Status Date / Time cephalexin monohydrate Allergy Chest Verified 07/07/23 08:52 [From Keflex] tightness Surgical History H/O bilateral salpingectomy History of herniorrhaphy Hx of cholecystectomy Hx of tonsillectomy Social History adopted: Yes household members: family housing: house Smoking Status: Former smoker alcohol intake: never substance use type: does not use ROS ROS Narrative Pertinent positives and pertinent negatives as noted in HPI. All other systems were reviewed and are negative Physical Exam Narrative General alert oriented in no acute distress HEENT. Normocephalic atraumatic, pupils equal and reactive Respiratory reduced air entry worse on the R, no wheezing Cardiac S1-S2, regular rate and rhythm GI abdomen soft and nontender MSK no lower extremity edema Skin no rashes Neuro moves all extremities, no dysarthria, no facial droop Medical Records Data Medical Nutrition Assessment Dietitian: Malnutrition Criteria Met Start: 07/08/23 12:01 Freq: Status: Active Protocol: Document 07/08/23 12:01 (Rec: 07/08/23 12:01 AG Desktop) Nutrition Malnutrition Evidence of Malnutrition Exists Yes Malnutrition (severe): Acute Illness/Injury Evidenced By Suboptimal Energy Intake ( Severe),Weight Loss (Severe) Clinical Problem Acute Disease or Injury Related Malnutrition Etiology severe, acute malnutrition r/t GI dysfunction Signs/Symptoms as evidenced by unintentional 9% wt loss < 2 months, estimated PO intake meeting < 50% of estimated energy needs > 5 days Status Active Problem Recommendation Dietitian Recommendations/Changes continue regular diet as tolerated; offer ensure w/ medpass if pt agreeable- refusing at this time. Lab / Micro Data 07/08/23 06:25 07/08/23 06:25 Labs: Laboratory Results - last 24 hr 07/07/23 13:13: Fluid Source THORACENTESIS, Fluid Color YELLOW, Fluid AppearanceCLEAR, Fluid WBC 9.292, Fluid RBC 2, Fluid Tot Cell Count 9.308 H, Fld Polynuclear WBCs # 8.495, Fld Polynuclear WBCs % 91.4, Fluid Mononuclear WBCs 0.797, Fld Mononuclear WBCs % 8.6, Fluid Neutrophils 60, Fluid Lymphocytes 31, Fluid Monocytes 7, Fluid Macrophages 2, Fl Pathologist Comment May follow, FluidGlucose 7 L*, Fluid Total Protein 3.3, Fluid LDH 876, Fluid Comment 2 SEE COMMENT 07/07/23 15:00: Lactic Acid 0.8 07/07/23 21:45: Sodium 141, Potassium 3.3 L, Chloride 100, Carbon Dioxide 34.0 H, Anion Gap 7, BUN 8, Creatinine 0.63, Estim Creat Clear Calc 47.14, Est GFR (MDRD) Af Amer 121, Est GFR (MDRD) Non-Af 100, BUN/Creatinine Ratio 12.6, Glucose 154 H, Calcium 9.1 07/08/23 06:25: WBC 14.9 H, RBC 3.42 L, Hgb 9.7 L, Hct 32.7 L, MCV 95.6 D, MCH 28.4, MCHC 29.7 L D, RDW Std Deviation 51.5 H, RDW Coeff of Laly 14.7 H, Plt Count 546 H, MPV 9.6, Immature Gran % (Auto) 0.700, Neut % (Auto) 85.0 H, Lymph % (Auto) 6.3 L, Robertson % (Auto) 7.4, Eos % (Auto) 0.1, Baso % (Auto) 0.5, AbsoluteNeuts (auto) 12.6 H, Absolute Lymphs (auto) 0.94, Nucleated RBC % 0, Sodium 142,Potassium 4.1, Chloride 102, Carbon Dioxide 35.0 H, Anion Gap 5, BUN 14, Creatinine 1.30 H, Estim Creat Clear Calc 36.26, Est GFR (MDRD) Af Amer 53 L, Est GFR (MDRD) Non-Af 43 L, BUN/Creatinine Ratio 10.8, Glucose 144 H, Calcium 9.1, Total Bilirubin 0.50, AST 12 L, ALT 8 L, Alkaline Phosphatase 103, Total Protein 6.5, Albumin 1.9 L, Globulin 4.6 H, Albumin/Globulin Ratio 0.4 L, TSH 1.37 07/08/23 12:10: MRSA (PCR) Negative Micro: Microbiology 07/07/23 13:13 Fluid - Thoracentesis Fluid Gram Stain - Final 07/07/23 13:13 Fluid - Thoracentesis Fluid Body Fluid Culture - Preliminary No growth-Final to follow Charges/Coding Visit Charges Inpatient E&M: 20052 Init Hosp L3 07/08/23 1446 <Electronically signed by Pao Weeks MD> Cosigner Signature (if applicable): CC: ALFRED Jovel; Dr. Kapil Doyle MD; Dr. Adrian Nieves DO; Dr. Pao Weeks MD; Dr. Chris Shepard MD; Dr. Diana Santillan MD; Dr. Ford Graff MD; Dr. Julio Draper MD~ Signed [facility] Work Phone: [phone]) 869-902801-05-2024 Progress note Author Edis Mayo [facility] July 08, 2023 10:29am Note Date/Time July 08, 2023 8: 31am [facility] Medical Records Department [address] [place] [address] Progress Note - Hospitalist 07/08/23830 MR#: [id number] Acct: [id number] Name: SNEHA CARDENAS Rep #:[id number] : 1955 68 From: Edis Mayo MD PCP: Dr. Julio Draper MD Status:A DM IN Location: [place] [address] Reason for Visit Reason for Visit: Diagnoses Unspecified atrial fibrillation (07/07/23) Chronic obstructive pulmonary disease, unspecified (07/07/23) Pyothorax without fistula (07/07/23) Pleural effusion, not elsewhere classified (07/07/23) Chronic respiratory failure with hypoxia (07/07/23) Personal history of other specified conditions (07/07/23) Subjective Subjective Patient is a 68-year-old lady with recent hospitalization with right lower lobe pneumonia with parapneumonic effusion presented with shortness of breath. Patient diagnosed with empyema. Arrangement made for patient to be transferred to tertiary care center for CT surgery eval Objective Data Objective Data Vital Signs: Vital Signs Temp Pulse Resp BP Pulse Ox O2 Del Method O2 Flow Rate 97.0 F L 78 18 131/65 H 96 Nasal Cannula 3 07/08/23 03:37 07/08/23 03:52 07/08/23 03:52 07/08/23 03:37 07/08/23 03:52 07/08/23 03:52 07/08/23 03:52 Oxygen Flow Rate (L/min) 3 Oxygen Delivery Method Nasal Cannula Weight: 63 kg Body Mass Index (BMI) 23.8 Intake & Output: Intake and Output for Last 24 Hours 07/06/23 07/07/23 07/08/23 23:59 23:59 23:59 Intake Total 1780 / 1780 110 / 110 Output Total 100 / 100 Balance 1680 / 1680 110 / 110 Lab / Micro Data 07/08/23 06:25 07/08/23 06:25 Labs: Laboratory Results - last 24 hr 07/07/23 09:15: WBC 11.7 H, RBC 3.66 L, Hgb 10.7 L, Hct 32.9 L, MCV 89.9, MCH 29.2, MCHC 32.5, RDW Std Deviation 47.1 H, RDW Coeff of Laly 14.4, Plt Count 553 H, MPV 9.2, Immature Gran % (Auto) 0.500, Neut % (Auto) 80.3 H, Lymph % (Auto) 9.3 L, Robertson % (Auto) 9.5, Eos % (Auto) 0.1, Baso % (Auto) 0.3, Absolute Neuts (auto) 9.4 H, Absolute Lymphs (auto) 1.09, Nucleated RBC % 0, Sodium 137, Potassium 2.7 L*, Chloride 94 L, Carbon Dioxide 37.0 H, Anion Gap 6, BUN 7, Creatinine 0.46 L, Estim Creat Clear Calc 47.14, Est GFR (MDRD) Af Amer 175, EstGFR (MDRD) Non-Af 145, BUN/Creatinine Ratio 15.3, Glucose 114 H, Calcium 9.5, Magnesium 2.0, Troponin I High Sens 13 07/07/23 13:13: Fluid Source THORACENTESIS, Fluid Color YELLOW, Fluid AppearanceCLEAR, Fluid WBC 9.292, Fluid RBC 2, Fluid Tot Cell Count 9.308 H, Fld Polynuclear WBCs # 8.495, Fld Polynuclear WBCs % 91.4, Fluid Mononuclear WBCs 0.797, Fld Mononuclear WBCs % 8.6, Fluid Neutrophils 60, Fluid Lymphocytes 31, Fluid Monocytes 7, Fluid Macrophages 2, Fl Pathologist Comment May follow, FluidGlucose 7 L*, Fluid Total Protein 3.3, Fluid LDH 876, Fluid Comment 2 SEE COMMENT 07/07/23 15:00: Lactic Acid 0.8 07/07/23 21:45: Sodium 141, Potassium 3.3 L, Chloride 100, Carbon Dioxide 34.0 H, Anion Gap 7, BUN 8, Creatinine 0.63, Estim Creat Clear Calc 47.14, Est GFR (MDRD) Af Amer 121, Est GFR (MDRD) Non-Af 100, BUN/Creatinine Ratio 12.6, Glucose 154 H, Calcium 9.1 07/08/23 06:25: WBC 14.9 H, RBC 3.42 L, Hgb 9.7 L, Hct 32.7 L, MCV 95.6 D, MCH 28.4, MCHC 29.7 L D, RDW Std Deviation 51.5 H, RDW Coeff of Laly 14.7 H, Plt Count 546 H, MPV 9.6, Immature Gran % (Auto) 0.700, Neut % (Auto) 85.0 H, Lymph % (Auto) 6.3 L, Robertson % (Auto) 7.4, Eos % (Auto) 0.1, Baso % (Auto) 0.5, AbsoluteNeuts (auto) 12.6 H, Absolute Lymphs (auto) 0.94, Nucleated RBC % 0, Sodium 142,Potassium 4.1, Chloride 102, Carbon Dioxide 35.0 H, Anion Gap 5, BUN 14, Creatinine 1.30 H, Estim Creat Clear Calc 36.26, Est GFR (MDRD) Af Amer 53 L, Est GFR (MDRD) Non-Af 43 L, BUN/Creatinine Ratio 10.8, Glucose 144 H, Calcium 9.1, TotalBilirubin 0.50, AST 12 L, ALT 8 L, Alkaline Phosphatase 103, Total Protein 6.5, Albumin 1.9 L, Globulin 4.6 H, Albumin/Globulin Ratio 0.4 L, TSH 1.37 Micro: Microbiology 07/07/23 13:13 Fluid - Thoracentesis Fluid Gram Stain - Final Radiography Diagnostic Testing: Radiology Impression Acute Abdomen Series 07/07/23 09:25 IMPRESSION: 1. Increased right subpulmonic pleural effusion causing increased compressive atelectasis of right lung base. 2. Gas in small and large bowel loops but no bowel obstruction. Electronically Signed: Guido Metzger MD at 9:50 EST , Chest X-Ray 07/07/23 13:26 IMPRESSION: Decrease in right pleural effusion with no other change and no complicating features. Electronically Signed: Hosea Mendez MD at 13:43 EST , Physical Exam Narrative GENERAL: cooperative HEENT: Atraumatic; normocephalic EYES; Anicteric, Normal Conjunctiva NECK; supple, normal thyroid, RESPIRATORY: Diminished to auscultation CARDIOVASCULAR: Regular S1 S2, GI: soft, normoactive bowel sounds, : No Renal angle tenderness; EXTREMITIES: No edema, no clubbing, MUSCULOSKELETAL: no muscle wasting NEURO: Awake; no lateralizing signs. SKIN: No Rash PSYCH; Flat affect Assessment & Plan Assessment/Plan (1) Empyema of pleural space: PLAN: Plan Patient is a 68-year-old lady with recent hospitalization with right lower lobe pneumonia with parapneumonic effusion presented with shortness of breath. Patient diagnosed with empyema. Arrangement made for patient to be transferred to tertiary [facility] for CT surgery eval 1. Acute on chronic empyema ? Patient underwent thoracocentesis during her recent hospitalization consistentwith empyema. Presented back with progressive shortness of breath. Pulmonary medicine consulted recommended for patient to be transferred to [facility] for cardiothoracic surgery evaluation. Patient has been accepted for transfer at [facility]. Patient was started on broad-spectrumantibiotic therapy with Zosyn and vancomycin pending her transfer 2. Chronic hypoxia ? Secondary to patient empyema as well as COPD. Patient is on oxygen 3 L 3. Hypokalemia ? Corrected per protocol repeat labs ordered for monitoring 4. Recent diagnosis of duodenal ulcer EGD from 06/09/2023 demonstrated erosive esophagitis hiatal hernia and duodenal ulcer with visible vessel that was cauterized. Patient remains on PPI 5. Anemia - Secondary to chronic blood loss anemia monitoring H&H and transfuse if patientbecomes symptomatic or hemoglobin falls below 7 6. Paroxysmal A-fib ? Patient had rapid ventricular response during her previous admission. Patientwas placed on Eliquis which had to be discontinued due to GI bleed remains on beta-blockers 7. COPD ? Currently not in exacerbation 8. Anxiety disorder ? Patient is on BuSpar 8. DVT prophylaxis ? Bilateral SCDs for now Time spent in the patient's overall evaluation,decision-making process, review of diagnostic data, adjustment of management, discussion with other providers, nursing nursing and ancillary staff involved in patient's care documentation, 50 Minutes Charges/Coding Visit Charges Inpatient E&M: 43624 Subs Hosp L3 07/08/23 1029 <Electronically signed by Edis Mayo MD> Cosigner Signature (if applicable): CC: ~ Signed [facility] Work Phone: 1(173) 773-177501-04-2024 History and physical note Author Diana Santillan [facility] July 07, 2023 9:12pm Note Date/Time July 07, 2023 5: 28pm [facility] Medical Records Department [address] [place] [id number] H&P Exam - Hospitalist 07/07/23 1721 MR#: [id number] Acct: [id number] Name: SNEHA CARDENAS Rep #:[id number] : 1955 68 From: Diana Santillan MD PCP: Dr. Julio Draper MD Status:A DM IN Location: [place] [address] HPI - General General Date of Admission: 07/07/23 Date of Service: 07/07/23 Chief Complaint: SOB, hypoxia, n/v HPI Narrative SNEHA CARDENAS, is a 68 F with history of COPD, GERD/duodenal ulcers, paroxysmalatrial fibrillation, anxiety who presented to [facility] 07/07/2023 with nausea and vomiting and upper abdominal pain/feeling generally unwell. She was here in the ED 1/2 with abdominal pain and no acute process wasfound so patient discharged at that time however she reports she has continued to feel worse prompting her to come back. Given she had not had bowel movement in 2 days and has had nausea and vomiting she had KUB which showed right-sided effusion, patient had thoracentesis in ED with lab studies consistent with empyema. Her muleser was contacted by ED and it was recommended patient be transferred for CT surgery, she was accepted at [facility] however no bedsat present so hospitalist contacted and asked to admit patient while awaiting bed. Patient seen with family member at bedside. They report she has been generally unwell for the past couple of months and has had multiple medical problems, reports one of her main complaints today was nausea and vomiting with some upper abdominal pain and chest tightness with no bowel movements for 2 daysbut also has been more short of breath on exertion with O2 sats down to 85% at home on her regular 3 L, has had cough though reports she has not been able to produce significant sputum, has had some chills and swelling in her feet, also feeling weak all over. Patient agreeable to admission while pending transfer. [facility] Medical History (Updated 07/07/23 @ 21:[address] Diana Santillan MD) Anxiety Asthma Atrial fibrillation Benign essential hypertension Benign essential tremor COPD (chronic obstructive pulmonary disease) Former smoker Former tobacco use Lung nodules Migraines On home oxygen therapy Pneumonia due to COVID-19 virus Home Medications albuterol sulfate 90 mcg/actuation aerosol inhaler (Ventolin HFA) 2 puff inhalation Q4H PRN PRN Shortness Of Breath 08/28/15 [History Last Taken 07/06/23] montelukast 10 mg tablet 10 mg PO QHS ALLERGIES 02/25/18 [History Last Taken 07/06/23] fluticasone fur. 100 mcg-umeclid 62.5 mcg-vilant 25 mcg inhalat.powder (Trelegy Ellipta) 1 inh inhalation DAILY COPD 05/01/21 [History Last Taken 07/06/23] fluticasone propionate 50 mcg/actuation nasal spray,suspension 2 spray intranasal QHS ALLERGIES 05/01/21 [History Last Taken 07/06/23] buspirone 5 mg tablet 10 mg (2 x 5 mg) PO BID anxiety 30 days #120 tabs 06/16/23[Rx Last Taken 07/06/23] metoprolol tartrate 25 mg tablet 25 mg PO BID HTN 30 days #60 tabs 06/16/23 [Rx Last Taken 07/06/23] pantoprazole 40 mg tablet,delayed release (Protonix) 40 mg PO BID GERD 30 days #60 tabs 06/23/23 [Rx Last Taken 07/06/23] sucralfate 1 gram tablet 1 g PO 0700,1100,1600 GI 30 days #90 tabs 06/23/23 [Rx Last Taken 07/06/23] Allergy/AdvReac Type Severity Reaction Status Date / Time cephalexin monohydrate Allergy Chest Verified 07/07/23 08:52 [From Keflex] tightness Surgical History H/O bilateral salpingectomy History of herniorrhaphy Hx of cholecystectomy Hx of tonsillectomy Social History adopted: Yes household members: family housing: house Smoking Status: Former smoker alcohol intake: never substance use type: does not use ROS ROS Narrative General: Has felt some chills HENT: May be headache EYES: Denies changes in vision Resp: Increased shortness of breath and dry cough Cardiac: Had felt some chest tightness GI: Decrease in bowel movements, nausea and vomiting, some upper abdominal pain : Denies changes in urination Extremity: Has felt like her lower extremities have been somewhat swollen MSK: Generalized weakness Neuro: Denies any numbness/tingling Heme: Denies any bleeding or bruising Skin: Denies rashes Psychiatric: No complaints voiced Vital Signs Vital Signs Vital Signs: 07/07/23 08:52 07/07/23 11:06 07/07/23 13:10 Temperature 96.6 F L 99.5 F H 99 F Temperature Source Temporal Temporal Pulse Rate 96 97 93 Respiratory Rate 16 15 18 Respiratory Effort Short of Breath Respiratory Pattern Normal Blood Pressure 129/83 H 156/64 H 149/67 H Blood Pressure Mean 98 94 Pulse Ox 93 97 Oxygen Delivery Method Room Air Nasal Cannula Nasal Cannula Oxygen Flow Rate (L/min) 3 3 07/07/23 13:22 07/07/23 13:30 07/07/23 13:57 Temperature Temperature Source Pulse Rate 93 88 90 Respiratory Rate 18 18 22 H Respiratory Effort Respiratory Pattern Blood Pressure 148/66 H 148/72 H 148/72 H Blood Pressure Mean 97 Pulse Ox 97 Oxygen Delivery Method Nasal Cannula Nasal Cannula Nasal Cannula Oxygen Flow Rate (L/min) 3 3 3 07/07/23 15:07 Temperature 99.5 F H Temperature Source Pulse Rate 90 Respiratory Rate 18 Respiratory Effort Respiratory Pattern Blood Pressure 148/69 H Blood Pressure Mean 95 Pulse Ox 96 Oxygen Delivery Method Oxygen Flow Rate (L/min) Weight Weight: 55.792 kg Body Mass Index (BMI) 21.1 Physical Exam Narrative General: Alert, oriented, appears tired HEENT: Atraumatic, normocephalic Eyes: Anicteric, normal conjunctiva, extraocular movements grossly intact Neck: Supple Respiratory: Slight increased respiratory effort, diminished right greater than left Cardiovascular: Regular rate GI: Soft, no rebound, guarding, rigidity, nondistended Extremities: No significant pitting edema Musculoskeletal: Moving all extremities Neuro: No overt focal neurological deficits Skin: No rashes appreciated Psych: Cooperative Results Lab / Micro Data 07/07/23 09:15 07/07/23 09:15 Labs: Laboratory Results - last 24 hr 07/07/23 09:15: WBC 11.7 H, RBC 3.66 L, Hgb 10.7 L, Hct 32.9 L, MCV 89.9, MCH 29.2, MCHC 32.5, RDW Std Deviation 47.1 H, RDW Coeff of Laly 14.4, Plt Count 553 H, MPV 9.2, Immature Gran % (Auto) 0.500, Neut % (Auto) 80.3 H, Lymph % (Auto) 9.3 L, Robertson % (Auto) 9.5, Eos % (Auto) 0.1, Baso % (Auto) 0.3, Absolute Neuts (auto) 9.4 H, Absolute Lymphs (auto) 1.09, Nucleated RBC % 0, Sodium 137, Potassium 2.7 L*, Chloride 94 L, Carbon Dioxide 37.0 H, Anion Gap 6, BUN 7, Creatinine 0.46 L, Estim Creat Clear Calc 47.14, Est GFR (MDRD) Af Amer 175, EstGFR (MDRD) Non-Af 145, BUN/Creatinine Ratio 15.3, Glucose 114 H, Calcium 9.5, Magnesium 2.0, Troponin I High Sens 13 07/07/23 13:13: Fluid Source THORACENTESIS, Fluid Color YELLOW, Fluid AppearanceCLEAR, Fluid WBC 9.292, Fluid RBC 2, Fluid Tot Cell Count 9.308 H, Fld Polynuclear WBCs # 8.495, Fld Polynuclear WBCs % 91.4, Fluid Mononuclear WBCs 0.797, Fld Mononuclear WBCs % 8.6, Fluid Neutrophils 60, Fluid Lymphocytes 31, Fluid Monocytes 7, Fluid Macrophages 2, Fl Pathologist Comment May follow, FluidGlucose 7 L*, Fluid Total Protein 3.3, Fluid LDH 876, Fluid Comment 2 SEE COMMENT 07/07/23 15:00: Lactic Acid 0.8 Micro: Microbiology 07/07/23 13:13 Fluid - Thoracentesis Fluid Gram Stain - Final Imagaing Radiology Impression Acute Abdomen Series 07/07/23 09:25 IMPRESSION: 1. Increased right subpulmonic pleural effusion causing increased compressive atelectasis of right lung base. 2. Gas in small and large bowel loops but no bowel obstruction. Electronically Signed: Guido Metzger MD at 9:50 EST , Chest X-Ray 07/07/23 13:26 IMPRESSION: Decrease in right pleural effusion with no other change and no complicating features. Electronically Signed: Hosea Mendez MD at 13:43 EST , Assessment & Plan Assessment/Plan (1) Empyema of pleural space: (2) Hx of ulcer disease: (3) Chronic hypoxemic respiratory failure: (4) Atrial fibrillation: (5) COPD (chronic obstructive pulmonary disease): PLAN: Plan #Empyema in setting of chronic hypoxic resp failure on 3L NC O2 for chronic COPD -sp thoracentesis w/ lab studies suggestive of empyema -Patient awaiting bed at [facility] -Vanc/zosyn -Nebs, budesonide -I/S -Pulmonology consulted while patient admitted at our facility # Hypokalemia -Replaced w/ plan to recheck #GERD with recent duodenal ulcers and GI bleed -Continue PPI and sucralfate -Hemoglobin presently stable # History of paroxysmal atrial fibrillation -Not presently on anticoagulation given recent GI bleed -Continue metoprolol # Anxiety -Continue BuSpar #DVT ppx: SCDs Diana Santillan MD Time spent in the patient's overall evaluation,decision-making process, review of diagnostic data, adjustment of management, discussion with other providers, nursing nursing and ancillary staff involved in patient's care documentation, 55minutes Charges/Coding Visit Charges Inpatient E&M: 43120 Init Hosp L2 07/07/232111 <Electronically signed by Diana Santillan MD> Cosigner Signature (if applicable): CC: Dr. Diana Santillan MD; Dr. Julio Draper MD~ Signed [facility] Work Phone: 1(474) 349-227701-04-2024 Discharge summary Author Zach Thomas [facility] July 07, 2023 4:07pm Note Date/Time July 07, 2023 9: 11am [facility] Medical Records Department [address] [place] [address] Emergency Department Summary 07/07/23 MR#: [id number] Acct: [id number] Name: SNEHA CARDENAS Rep #:[id number] : 1955 68 From: Zach Thomas MD PCP: Dr. Julio Draper MD Status:R EG ER Location: ED HPI History of Present Illness Chief Complaint: Nausea/Vomiting Detail of Chief Complaint: Nausea and vomiting with upper abdominal pain and chest tightness Informant: patient and spouse/S.O. Onset/Context/Timing Onset: Yesterday (Yesterday afternoon) Context: Sudden Onset Timing: Intermittent and Waxes and wanes Quality: Pain in the upper mid abdomen and tightness central chest Location: Previously described Current Severity: Mild Maximum Severity: Severe Worsened by: Nausea and vomiting Relieved by: Nothing Associated Symptoms Associated Symptoms: Thirst, dry mouth, orthostatic symptoms, decreased urine output Narrative Narrative: Patient is a 68-year-old woman with COPD abdominal pain associated with nausea and vomiting started last after on oxygen nasal cannula once with nausea and vomiting started yesterday and has had dry heaves since midnight. She states anytime she attempts to drink anything she vomits and now has dry heaves. She has not had a bowel movement in 2 days. She is not passing much gas. There is no history of partial small bowel obstruction. Patient does have history of peptic ulcer disease. She denies blood or coffee-ground appearance to her emesis. She denies black or maroon- colored stool. Patient does endorse thirst, dry mouth and orthostatic symptoms. She also endorses decreased urine output. She denies history of liver disease. She is status postcholecystectomy. She states she was seen on Tuesday. She had CAT scan at that time which was unremarkable. Review of prior records indicates patient has history of renal insufficiency, peptic ulcer disease with GI bleed, end-stage COPD and a former smoker. She quit 9 years ago. Oxygen Prior similar symptoms: Yes Recent Illness/Hospitalization: Yes PFSH PFSH Medical History Anxiety Asthma Benign essential hypertension Benign essential tremor COPD (chronic obstructive pulmonary disease) Former tobacco use Lung nodules Migraines On home oxygen therapy Pneumonia due to COVID-19 virus Home Medications albuterol sulfate 90 mcg/actuation aerosol inhaler (Ventolin HFA) 2 puff inhalation Q4H PRN PRN Shortness Of Breath 08/28/15 [History Last Taken 07/06/23] montelukast 10 mg tablet 10 mg PO QHS ALLERGIES 02/25/18 [History Last Taken 07/06/23] fluticasone fur. 100 mcg-umeclid 62.5 mcg-vilant 25 mcg inhalat.powder (Trelegy Ellipta) 1 inh inhalation DAILY COPD 05/01/21 [History Last Taken 07/06/23] fluticasone propionate 50 mcg/actuation nasal spray,suspension 2 spray intranasal QHS ALLERGIES 05/01/21 [History Last Taken 07/06/23] buspirone 5 mg tablet 10 mg (2 x 5 mg) PO BID anxiety 30 days #120 tabs 06/16/23[Rx Last Taken 07/06/23] metoprolol tartrate 25 mg tablet 25 mg PO BID HTN 30 days #60 tabs 06/16/23 [Rx Last Taken 07/06/23] pantoprazole 40 mg tablet,delayed release (Protonix) 40 mg PO BID GERD 30 days #60 tabs 06/23/23 [Rx Last Taken 07/06/23] sucralfate 1 gram tablet 1 g PO 0700,1100,1600 GI 30 days #90 tabs 06/23/23 [Rx Last Taken 07/06/23] Allergy/AdvReac Type Severity Reaction Status Date / Time cephalexin monohydrate Allergy Chest Verified 07/07/23 08:52 [From Keflex] tightness Surgical History H/O bilateral salpingectomy History of herniorrhaphy Hx of cholecystectomy Hx of tonsillectomy Social History adopted: Yes household members: family housing: house Smoking Status: Former smoker alcohol intake: never substance use type: does not use ROS ROS ED Constitutional Constitutional ED: Reports chills; Denies fever(s), subjective, sweats or weightloss Eyes Eyes: Denies blurry vision, change in vision or diplopia ENT ENT ED: Denies ear pain, rhinorrhea or sore throat Cardiovascular Cardiovascular: Reports chest pain; Denies orthopnea, palpitations, paroxysmal nocturnal dyspnea or racing heartbeat Respiratory/Chest Respiratory/Chest: Denies cough, dyspnea, dyspnea on exertion, orthopnea or paroxysmal nocturnal dyspnea Gastrointestinal Gastrointestinal: Reports abdominal pain, nausea and vomiting; Denies constipation, diarrhea or melena Genitourinary Genitourinary ED: Reports other Details: Decreased urine output ; Denies dysuria, hematuria or urinary frequency Musculoskeletal Musculoskeletal: Denies arthralgias or myalgias Integumentary Denies rash Neurologic Neurologic: Reports weakness; Denies headache(s) or paresthesias Endocrine Endocrinology: Denies cold intolerance or heat intolerance Hematologic/Lymphatic Hematologic/Lymphatic: Reports systems reviewed and no addt'l complaints, exceptas documented EXAM Physical Exam Const Vital Signs: 07/07/23 08:52 07/07/23 11:06 07/07/23 13:10 Temperature 96.6 F L 99.5 F H 99 F Temperature Source Temporal Temporal Pulse Rate 96 97 93 Respiratory Rate 16 15 18 Respiratory Effort Short of Breath Respiratory Pattern Normal Blood Pressure 129/83 H 156/64 H 149/67 H Blood Pressure Mean 98 94 Pulse Ox 93 97 Oxygen Delivery Method Room Air Nasal Cannula Nasal Cannula Oxygen Flow Rate (L/min) 3 3 07/07/23 13:22 07/07/23 13:30 07/07/23 13:57 Temperature Temperature Source Pulse Rate 93 88 90 Respiratory Rate 18 18 22 H Respiratory Effort Respiratory Pattern Blood Pressure 148/66 H 148/72 H 148/72 H Blood Pressure Mean 97 Pulse Ox 97 Oxygen Delivery Method Nasal Cannula Nasal Cannula Nasal Cannula Oxygen Flow Rate (L/min) 3 3 3 07/07/23 15:07 Temperature 99.5 F H Temperature Source Pulse Rate 90 Respiratory Rate 18 Respiratory Effort Respiratory Pattern Blood Pressure 148/69 H Blood Pressure Mean 95 Pulse Ox 96 Oxygen Delivery Method Oxygen Flow Rate (L/min) Positive well nourished and well developed Constitutional Narrative: Patient does not appear well. She does not appear toxic. General Appearance ED: well developed; Negative for cyanotic, diaphoretic, NAD or pallor HEENT Reports dry mucous membranes HEENT Narrative: Head is atraumatic and normocephalic. Ears are normal. Nares are patent. Posterior pharynx is normal. Mouth ED: Yes dry mucous membranes Mouth: dry mucous membranes Eyes PERRL and EOMs intact bilaterally General Eye ED: Negative for pale conjunctiva or scleral icterus Neck no lymphadenopathy, supple and no JVD Chest Wall Chest Narrative: There is no reproducible chest pain. Resp normal respiratory effort and clear to auscultation bilaterally Cardio regular rate, regular rhythm, S1 normal heart sound, S2 normal heart sound and no murmurs GI no masses; Negative for non-tender, non-distended or hepatosplenomegaly Inspection: abdominal distention Auscultation: hypoactive bowel sounds Palpation: soft and tender epigastric Back/Spine no CVA tenderness Extremity normal to inspection General Extremety ED: Negative for edema or tenderness General Extremity: Negative for edema Neuro oriented x3 and CN's II-XII intact bilaterally Sensorium / Orientation: alert Psych mental status grossly normal Skin no rashes or lesions noted, no wounds and No skin turgor normal General Skin Exam: Negative for jaundice or pallor MDM MDM MDM Narrative Medical decision making narrative: Clinically patient is dehydrated. 1 L normal saline was ordered. Because of history of elevated creatinine will obtain basic metabolic panel to assess renalfunction, CO2 anion gap and electrolytes. CBC was obtained to assess H&H. Abdominal series was ordered to determine if patient has ileus versus nonspecific gas pattern versus possible partial small bowel obstruction. She had a scan on Tuesday did not repeat at this time. Understanding as well that abdominal series only has a sensitivity of 60% for bowel obstruction whereas CT is significantly more sensitive. Patient will receive Zofran for her nausea andvomiting. Because she reported chest tightness will obtain EKG and troponin in the event that this is an atypical presentation for coronary presentation. History & Record Review Additional record(s) reviewed:: Prior ED visit and Prior labs Lab Data Attestation: I reviewed the patient's lab results. Lab results narrative: White count is slightly elevated with mild shift. First troponin is normal. Basic metabolic panel is remarkable for hypokalemia with potassium of 2.7. CO2 is elevated 37. Review of prior laboratory results indicates patient has chronic anemia. She also has history of CO2 retention. Labs: Laboratory Results - last 24 hr 07/07/23 07/07/23 07/07/23 09:15 13:13 15:00 WBC 11.7 H RBC 3.66 L Hgb 10.7 L Hct 32.9 L MCV 89.9 MCH 29.2 MCHC 32.5 RDW Std Deviation 47.1 H RDW Coeff of Laly 14.4 Plt Count 553 H MPV 9.2 Immature Gran % (Auto) 0.500 Neut % (Auto) 80.3 H Lymph % (Auto) 9.3 L Robertson % (Auto) 9.5 Eos % (Auto) 0.1 Baso % (Auto) 0.3 Absolute Neuts (auto) 9.4 H Absolute Lymphs (auto) 1.09 Nucleated RBC % 0 Sodium 137 Potassium 2.7 L* Chloride 94 L Carbon Dioxide 37.0 H Anion Gap 6 BUN 7 Creatinine 0.46 L Estim Creat Clear Calc 47.14 Est GFR (MDRD) Af Amer 175 Est GFR (MDRD) Non-Af 145 BUN/Creatinine Ratio 15.3 Glucose 114 H Lactic Acid 0.8 Calcium 9.5 Magnesium 2.0 Troponin I High Sens 13 Fluid Source THORACENTESIS Fluid Color YELLOW Fluid Appearance CLEAR Fluid WBC 9.292 Fluid RBC 2 Fluid Tot Cell Count 9.308 H Fld Polynuclear WBCs # 8.495 Fld Polynuclear WBCs % 91.4 Fluid Mononuclear WBCs 0.797 Fld Mononuclear WBCs % 8.6 Fluid Neutrophils 60 Fluid Lymphocytes 31 Fluid Monocytes 7 Fluid Macrophages 2 Fl Pathologist Comment May follow Fluid Glucose 7 L* Fluid Total Protein 3.3 Fluid LDH 876 Fluid Comment 2 SEE COMMENT Radiography Chest X-Ray - ED: Read by ED Physician (Three-view x-ray of the abdomen was obtained independent reviewed by me at 0945. Patient has an ossific gas pattern. There is no edema to the bowel wall, air-fluid levels or pneumothorax. Chest portion reveals interstitial changes right lower lobe and the is a small effusion. Will need to compar) Diagnostic Testing: Clinical Impression(s) from Imaging Studies Acute Abdomen Series 07/07/23 09:25 IMPRESSION: 1. Increased right subpulmonic pleural effusion causing increased compressive atelectasis of right lung base. 2. Gas in small and large bowel loops but no bowel obstruction. Electronically Signed: Guido Metzger MD at 9:50 EST , Chest X-Ray 07/07/23 13:26 IMPRESSION: Decrease in right pleural effusion with no other change and no complicating features. Electronically Signed: Hosea Mendez MD at 13:43 EST , Management Discussion w/another healthcare provider: Hospitalist (Hospitalist was paged foradmission since patient has a David pneumonic effusion that is infected., Empyema), Health Education Teacher (Consulted pulmonary since patient has an infected right pleural effusion status post pneumonia. She also has history of COPD. Cultureswere obtained. Blood cultures were obtained prior to administration of antibiotics. Spoke with kosher dietary service manager, Dr. Weeks who was aware of the patient. She cared ) and Other (Spoke with the intake nurse for [facility] transfer line. She will contact hospitalist. Patient be placed on the waiting list. She informed me it will be probably 3 to 4 days before she can beexcepted.) Treatment and Re-Evaluation :: Plan is admission to [facility] since surrounding hospitals are on bypass and have no bed availability. Discharge Plan Dx/Rx/DC Orders Clinical Impression: Empyema of pleural space, Acute exacerbation of chronic obstructive pulmonary disease, Acute bronchospasm, Dyspnea on exertion, Chronic hypoxemic respiratory failure, Elevated blood pressure reading without diagnosis of hypertension Disposition Disposition: Acute Care Hospital [facility] What to do if you have Problems For any increased pain, shortness of breath, bleeding, nausea or vomiting, chestpain, or any unexpected problems, contact your Primary Care Provider. Call [facility] ([phone]) or report to the closest Emergency Room. Call 911 if necessary. 07/07/23 1607 <Electronically signed by Zach Thomas MD> Cosigner Signature (if applicable): CC: Dr. Julio Draper MD ~ Signed [facility] Work Phone: 1(824) 687-395101-04-2024 Procedure [facility] 07-07-2023 Procedure [facility]01-04-2024 Discharge summary Author Zach Thomas [facility] July 07, 2023 4:07pm Note Date/Time July 07, 2023 9: 11am [facility] Medical Records Department [address] [place] [address] Emergency Department Summary 07/07/23 MR#: [id number] Acct: [id number] Name: SNEHA CARDENAS Rep #:[id number] : 1955 68 From: Zach Thomas MD PCP: Dr. Julio Draper MD Status:R EG ER Location: ED HPI History of Present Illness Chief Complaint: Nausea/Vomiting Detail of Chief Complaint: Nausea and vomiting with upper abdominal pain and chest tightness Informant: patient and spouse/S.O. Onset/Context/Timing Onset: Yesterday (Yesterday afternoon) Context: Sudden Onset Timing: Intermittent and Waxes and wanes Quality: Pain in the upper mid abdomen and tightness central chest Location: Previously described Current Severity: Mild Maximum Severity: Severe Worsened by: Nausea and vomiting Relieved by: Nothing Associated Symptoms Associated Symptoms: Thirst, dry mouth, orthostatic symptoms, decreased urine output Narrative Narrative: Patient is a 68-year-old woman with COPD abdominal pain associated with nausea and vomiting started last after on oxygen nasal cannula once with nausea and vomiting started yesterday and has had dry heaves since midnight. She states anytime she attempts to drink anything she vomits and now has dry heaves. She has not had a bowel movement in 2 days. She is not passing much gas. There is no history of partial small bowel obstruction. Patient does have history of peptic ulcer disease. She denies blood or coffee-ground appearance to her emesis. She denies black or maroon- colored stool. Patient does endorse thirst, dry mouth and orthostatic symptoms. She also endorses decreased urine output. She denies history of liver disease. She is status postcholecystectomy. She states she was seen on Tuesday. She had CAT scan at that time which was unremarkable. Review of prior records indicates patient has history of renal insufficiency, peptic ulcer disease with GI bleed, end-stage COPD and a former smoker. She quit 9 years ago. Oxygen Prior similar symptoms: Yes Recent Illness/Hospitalization: Yes [facility] Medical History Anxiety Asthma Benign essential hypertension Benign essential tremor COPD (chronic obstructive pulmonary disease) Former tobacco use Lung nodules Migraines On home oxygen therapy Pneumonia due to COVID-19 virus Home Medications albuterol sulfate 90 mcg/actuation aerosol inhaler (Ventolin HFA) 2 puff inhalation Q4H PRN PRN Shortness Of Breath 08/28/15 [History Last Taken 07/06/23] montelukast 10 mg tablet 10 mg PO QHS ALLERGIES 02/25/18 [History Last Taken 07/06/23] fluticasone fur. 100 mcg-umeclid 62.5 mcg-vilant 25 mcg inhalat.powder (Trelegy Ellipta) 1 inh inhalation DAILY COPD 05/01/21 [History Last Taken 07/06/23] fluticasone propionate 50 mcg/actuation nasal spray,suspension 2 spray intranasal QHS ALLERGIES 05/01/21 [History Last Taken 07/06/23] buspirone 5 mg tablet 10 mg (2 x 5 mg) PO BID anxiety 30 days #120 tabs 06/16/23[Rx Last Taken 07/06/23] metoprolol tartrate 25 mg tablet 25 mg PO BID HTN 30 days #60 tabs 06/16/23 [Rx Last Taken 07/06/23] pantoprazole 40 mg tablet,delayed release (Protonix) 40 mg PO BID GERD 30 days #60 tabs 06/23/23 [Rx Last Taken 07/06/23] sucralfate 1 gram tablet 1 g PO 0700,1100,1600 GI 30 days #90 tabs 06/23/23 [Rx Last Taken 07/06/23] Allergy/AdvReac Type Severity Reaction Status Date / Time cephalexin monohydrate Allergy Chest Verified 07/07/23 08:52 [From Keflex] tightness Surgical History H/O bilateral salpingectomy History of herniorrhaphy Hx of cholecystectomy Hx of tonsillectomy Social History adopted: Yes household members: family housing: house Smoking Status: Former smoker alcohol intake: never substance use type: does not use ROS ROS ED Constitutional Constitutional ED: Reports chills; Denies fever(s), subjective, sweats or weightloss Eyes Eyes: Denies blurry vision, change in vision or diplopia ENT ENT ED: Denies ear pain, rhinorrhea or sore throat Cardiovascular Cardiovascular: Reports chest pain; Denies orthopnea, palpitations, paroxysmal nocturnal dyspnea or racing heartbeat Respiratory/Chest Respiratory/Chest: Denies cough, dyspnea, dyspnea on exertion, orthopnea or paroxysmal nocturnal dyspnea Gastrointestinal Gastrointestinal: Reports abdominal pain, nausea and vomiting; Denies constipation, diarrhea or melena Genitourinary Genitourinary ED: Reports other Details: Decreased urine output ; Denies dysuria, hematuria or urinary frequency Musculoskeletal Musculoskeletal: Denies arthralgias or myalgias Integumentary Denies rash Neurologic Neurologic: Reports weakness; Denies headache(s) or paresthesias Endocrine Endocrinology: Denies cold intolerance or heat intolerance Hematologic/Lymphatic Hematologic/Lymphatic: Reports systems reviewed and no addt'l complaints, exceptas documented EXAM Physical Exam Const Vital Signs: 07/07/23 08:52 07/07/23 11:06 07/07/23 13:10 Temperature 96.6 F L 99.5 F H 99 F Temperature Source Temporal Temporal Pulse Rate 96 97 93 Respiratory Rate 16 15 18 Respiratory Effort Short of Breath Respiratory Pattern Normal Blood Pressure 129/83 H 156/64 H 149/67 H Blood Pressure Mean 98 94 Pulse Ox 93 97 Oxygen Delivery Method Room Air Nasal Cannula Nasal Cannula Oxygen Flow Rate (L/min) 3 3 07/07/23 13:22 07/07/23 13:30 07/07/23 13:57 Temperature Temperature Source Pulse Rate 93 88 90 Respiratory Rate 18 18 22 H Respiratory Effort Respiratory Pattern Blood Pressure 148/66 H 148/72 H 148/72 H Blood Pressure Mean 97 Pulse Ox 97 Oxygen Delivery Method Nasal Cannula Nasal Cannula Nasal Cannula Oxygen Flow Rate (L/min) 3 3 3 07/07/23 15:07 Temperature 99.5 F H Temperature Source Pulse Rate 90 Respiratory Rate 18 Respiratory Effort Respiratory Pattern Blood Pressure 148/69 H Blood Pressure Mean 95 Pulse Ox 96 Oxygen Delivery Method Oxygen Flow Rate (L/min) Positive well nourished and well developed Constitutional Narrative: Patient does not appear well. She does not appear toxic. General Appearance ED: well developed; Negative for cyanotic, diaphoretic, NAD or pallor HEENT Reports dry mucous membranes HEENT Narrative: Head is atraumatic and normocephalic. Ears are normal. Nares are patent. Posterior pharynx is normal. Mouth ED: Yes dry mucous membranes Mouth: dry mucous membranes Eyes PERRL and EOMs intact bilaterally General Eye ED: Negative for pale conjunctiva or scleral icterus Neck no lymphadenopathy, supple and no JVD Chest Wall Chest Narrative: There is no reproducible chest pain. Resp normal respiratory effort and clear to auscultation bilaterally Cardio regular rate, regular rhythm, S1 normal heart sound, S2 normal heart sound and no murmurs GI no masses; Negative for non-tender, non-distended or hepatosplenomegaly Inspection: abdominal distention Auscultation: hypoactive bowel sounds Palpation: soft and tender epigastric Back/Spine no CVA tenderness Extremity normal to inspection General Extremety ED: Negative for edema or tenderness General Extremity: Negative for edema Neuro oriented x3 and CN's II-XII intact bilaterally Sensorium / Orientation: alert Psych mental status grossly normal Skin no rashes or lesions noted, no wounds and No skin turgor normal General Skin Exam: Negative for jaundice or pallor MDM MDM MDM Narrative Medical decision making narrative: Clinically patient is dehydrated. 1 L normal saline was ordered. Because of history of elevated creatinine will obtain basic metabolic panel to assess renalfunction, CO2 anion gap and electrolytes. CBC was obtained to assess H&H. Abdominal series was ordered to determine if patient has ileus versus nonspecific gas pattern versus possible partial small bowel obstruction. She had a scan on Tuesday did not repeat at this time. Understanding as well that abdominal series only has a sensitivity of 60% for bowel obstruction whereas CT is significantly more sensitive. Patient will receive Zofran for her nausea andvomiting. Because she reported chest tightness will obtain EKG and troponin in the event that this is an atypical presentation for coronary presentation. History & Record Review Additional record(s) reviewed:: Prior ED visit and Prior labs Lab Data Attestation: I reviewed the patient's lab results. Lab results narrative: White count is slightly elevated with mild shift. First troponin is normal. Basic metabolic panel is remarkable for hypokalemia with potassium of 2.7. CO2 is elevated 37. Review of prior laboratory results indicates patient has chronic anemia. She also has history of CO2 retention. Labs: Laboratory Results - last 24 hr 07/07/23 07/07/23 07/07/23 09:15 13:13 15:00 WBC 11.7 H RBC 3.66 L Hgb 10.7 L Hct 32.9 L MCV 89.9 MCH 29.2 MCHC 32.5 RDW Std Deviation 47.1 H RDW Coeff of Laly 14.4 Plt Count 553 H MPV 9.2 Immature Gran % (Auto) 0.500 Neut % (Auto) 80.3 H Lymph % (Auto) 9.3 L Robertson % (Auto) 9.5 Eos % (Auto) 0.1 Baso % (Auto) 0.3 Absolute Neuts (auto) 9.4 H Absolute Lymphs (auto) 1.09 Nucleated RBC % 0 Sodium 137 Potassium 2.7 L* Chloride 94 L Carbon Dioxide 37.0 H Anion Gap 6 BUN 7 Creatinine 0.46 L Estim Creat Clear Calc 47.14 Est GFR (MDRD) Af Amer 175 Est GFR (MDRD) Non-Af 145 BUN/Creatinine Ratio 15.3 Glucose 114 H Lactic Acid 0.8 Calcium 9.5 Magnesium 2.0 Troponin I High Sens 13 Fluid Source THORACENTESIS Fluid Color YELLOW Fluid Appearance CLEAR Fluid WBC 9.292 Fluid RBC 2 Fluid Tot Cell Count 9.308 H Fld Polynuclear WBCs # 8.495 Fld Polynuclear WBCs % 91.4 Fluid Mononuclear WBCs 0.797 Fld Mononuclear WBCs % 8.6 Fluid Neutrophils 60 Fluid Lymphocytes 31 Fluid Monocytes 7 Fluid Macrophages 2 Fl Pathologist Comment May follow Fluid Glucose 7 L* Fluid Total Protein 3.3 Fluid LDH 876 Fluid Comment 2 SEE COMMENT Radiography Chest X-Ray - ED: Read by ED Physician (Three-view x-ray of the abdomen was obtained independent reviewed by me at 0945. Patient has an ossific gas pattern. There is no edema to the bowel wall, air-fluid levels or pneumothorax. Chest portion reveals interstitial changes right lower lobe and the is a small effusion. Will need to compar) Diagnostic Testing: Clinical Impression(s) from Imaging Studies Acute Abdomen Series 07/07/23 09:25 IMPRESSION: 1. Increased right subpulmonic pleural effusion causing increased compressive atelectasis of right lung base. 2. Gas in small and large bowel loops but no bowel obstruction. Electronically Signed: Guido Metzger MD at 9:50 EST , Chest X-Ray 07/07/23 13:26 IMPRESSION: Decrease in right pleural effusion with no other change and no complicating features. Electronically Signed: Hosea Mendez MD at 13:43 EST , Management Discussion w/another healthcare provider: Hospitalist (Hospitalist was paged foradmission since patient has a David pneumonic effusion that is infected., Empyema), Health Education Teacher (Consulted pulmonary since patient has an infected right pleural effusion status post pneumonia. She also has history of COPD. Cultureswere obtained. Blood cultures were obtained prior to administration of antibiotics. Spoke with kosher dietary service manager, Dr. Weeks who was aware of the patient. She cared ) and Other (Spoke with the intake nurse for [facility] transfer line. She will contact hospitalist. Patient be placed on the waiting list. She informed me it will be probably 3 to 4 days before she can beexcepted.) Treatment and Re-Evaluation :: Plan is admission to [facility] since surrounding hospitals are on bypass and have no bed availability. Discharge Plan Dx/Rx/DC Orders Clinical Impression: Empyema of pleural space, Acute exacerbation of chronic obstructive pulmonary disease, Acute bronchospasm, Dyspnea on exertion, Chronic hypoxemic respiratory failure, Elevated blood pressure reading without diagnosis of hypertension Disposition Disposition: Acute Care Hospital [facility] What to do if you have Problems For any increased pain, shortness of breath, bleeding, nausea or vomiting, chestpain, or any unexpected problems, contact your Primary Care Provider. Call [facility] ([phone]) or report to the closest Emergency Room. Call 911 if necessary. 07/07/23 1607 <Electronically signed by Zach Thomas MD> Cosigner Signature (if applicable): CC: Dr. Julio Draper MD ~ Signed [facility] Work Phone: 1(103) 663-918801-02-2024 Discharge summary Author Jaime Perdomo [facility] July 05, 2023 8:27pm Note Date/Time July 05, 2023 5: 21pm [facility] Medical Records Department [address] [place] [address] Emergency Department Summary 07/05/23 MR#: [id number] Acct: [id number] Name: SNEHA CARDENAS Rep #:[id number] : 1955 68 From: Jaime Perdomo DO PCP: Dr. Julio Draper MD Status:R EG ER Location: ED HPI HPI - GI History of Present Illness Chief Complaint: Abd Pain Narrative Narrative: 68-year-old female presenting with abdominal pain. She states on the left upperquadrant and left lower quadrant. She has a history of gastric ulcer, GI bleed. She states has been able to eat although it causes her pain when she does eat. She is making urine and stool. She denies black or bloody stools. No fevers orchills. No chest pain or shortness of breath. [facility] Medical History Anxiety Asthma Benign essential hypertension Benign essential tremor COPD (chronic obstructive pulmonary disease) Former tobacco use Lung nodules Migraines On home oxygen therapy Pneumonia due to COVID-19 virus Home Medications albuterol sulfate 90 mcg/actuation aerosol inhaler (Ventolin HFA) 2 puff inhalation Q4H PRN PRN Shortness Of Breath 08/28/15 [History Last Taken 11/30/22 10:00] montelukast 10 mg tablet 10 mg PO QHS ALLERGIES 02/25/18 [History Last Taken 11/29/22] fluticasone fur. 100 mcg-umeclid 62.5 mcg-vilant 25 mcg inhalat.powder (Trelegy Ellipta) 1 inh inhalation DAILY COPD 05/01/21 [History Last Taken 11/30/22] fluticasone propionate 50 mcg/actuation nasal spray,suspension 2 spray intranasal QHS ALLERGIES 05/01/21 [History Last Taken 11/28/22] buspirone 5 mg tablet 10 mg (2 x 5 mg) PO BID anxiety 30 days #120 tabs 06/16/23[Rx Last Taken Unknown] metoprolol tartrate 25 mg tablet 25 mg PO BID HTN 30 days #60 tabs 06/16/23 [Rx Last Taken Unknown] pantoprazole 40 mg tablet,delayed release (Protonix) 40 mg PO BID GERD 30 days #60 tabs 06/23/23 [Rx Last Taken Unknown] sucralfate 1 gram tablet 1 g PO 0700,1100,1600 GI 30 days #90 tabs 06/23/23 [Rx Last Taken Unknown] Allergy/AdvReac Type Severity Reaction Status Date / Time cephalexin monohydrate Allergy Chest Verified 07/05/23 14:35 [From Keflex] tightness Surgical History H/O bilateral salpingectomy History of herniorrhaphy Hx of cholecystectomy Hx of tonsillectomy Social History adopted: Yes household members: family housing: house Smoking Status: Former smoker alcohol intake: never substance use type: does not use ROS ROS ED Constitutional Constitutional ED: Denies chills, fever(s) or sweats Eyes Eyes: Denies blurry vision or change in vision ENT ENT ED: Denies ear pain or sore throat Cardiovascular Cardiovascular: Denies chest pain, palpitations or racing heartbeat Respiratory/Chest Respiratory/Chest: Denies cough, dyspnea or sputum Gastrointestinal Gastrointestinal: Reports abdominal pain; Denies constipation, diarrhea, nausea or vomiting Genitourinary Genitourinary ED: Denies dysuria, hematuria or urinary frequency Musculoskeletal Musculoskeletal: Denies arthralgias, myalgias or neck pain Integumentary Denies abscess, Abrasions or rash Neurologic Neurologic: Denies headache(s), paresthesias or weakness Psychiatric Psychiatric: Denies anxiety, depression, suicidal ideation or suicidal thoughts Endocrine Endocrinology: Denies polydipsia or polyuria EXAM Physical Exam Const Vital Signs: 07/05/23 14:35 07/05/23 16:20 07/05/23 17:43 Temperature 98.2 F Temperature Source Temporal Pulse Rate 84 83 Respiratory Rate 18 25 H Blood Pressure 142/69 H 144/60 H Blood Pressure Mean 93 88 Pulse Ox 95 98 96 Oxygen Delivery Method Room Air Nasal Cannula Venturi Mask Oxygen Flow Rate (L/min) 3 Positive well nourished General Appearance ED: NAD HEENT Reports moist mucous membranes normocephalic and atraumatic Eyes PERRL General Eye ED: Negative for pale conjunctiva Neck no lymphadenopathy Resp normal respiratory effort Auscultation: Negative for rales, rhonchi or wheezes Cardio regular rate and regular rhythm Neuro CN's II-XII intact bilaterally and moves all extremities Sensorium / Orientation: alert Motor Exam: strength 5/5 throughout Psych mental status grossly normal and thought process normal MDM MDM MDM Narrative Medical decision making narrative: Patient with history of upper GI bleed presenting with lower left abdominal pain. Differential includes GI bleed, anemia, dehydration, electrode normalities, diverticulitis, colitis, UTI, pyelonephritis, pancreatitis. Patient medicated with morphine, Zofran, Protonix. She was given a liter of normal saline. White blood cell count is 9.6. Hemoglobin 11.0. This is actually increasing. PT/INR normal. LFTs unremarkable. Renal function electrolytes normal exception of a potassium of 2.9. Lipase within normal limits. Urinalysis was negative. CT of the abdomen pelvis with IV contrast wasobtained and shows no acute process. Patient potassium was repleted orally. Lab work and imaging were discussed. All questions were answered. She stable for discharge at this time. She is to continue all meds as previously prescribed. Impression: 1. Abdominal pain Lab Data Labs: Laboratory Results - last 24 hr 07/05/23 07/05/23 07/05/23 15:30 15:45 17:35 WBC 9.6 RBC 3.84 L Hgb 11.0 L Hct 34.7 L MCV 90.4 MCH 28.6 MCHC 31.7 L RDW Std Deviation 47.7 H RDW Coeff of Laly 14.5 Plt Count 578 H MPV 9.3 Immature Gran % (Auto) 0.700 Neut % (Auto) 75.8 H Lymph % (Auto) 13.4 L Robertson % (Auto) 9.2 Eos % (Auto) 0.5 Baso % (Auto) 0.4 Absolute Neuts (auto) 7.3 Absolute Lymphs (auto) 1.29 Nucleated RBC % 0 PT 14.5 INR 1.1 Sodium 140 Potassium 2.9 L Chloride 97 L Carbon Dioxide 35.0 H Anion Gap 8 BUN 6 L Creatinine 0.50 L Estim Creat Clear Calc 47.14 Est GFR (MDRD) Af Amer 156 Est GFR (MDRD) Non-Af 129 BUN/Creatinine Ratio 11.9 Glucose 106 Calcium 8.8 Total Bilirubin 0.40 AST 12 L ALT 10 L Alkaline Phosphatase 117 Total Protein 7.3 Albumin 2.4 L Globulin 4.9 H Albumin/Globulin Ratio 0.5 L Lipase 24 Urine Color Yellow Urine Clarity Clear Urine pH 6.0 Ur Specific [place] 1.010 Urine Protein 30 H Urine Glucose (UA) Normal Urine Ketones 15 H Urine Occult Blood 150 H Urine Nitrite Negative Urine Bilirubin Negative Urine Urobilinogen Normal Ur Leukocyte Esterase Negative Urine RBC 0-5 SEEN Urine WBC 0-5 SEEN Ur Squamous Epith Cells 0-5 SEEN Urine Bacteria 0 SEEN Urine Mucus 1+ Blood Type O NEGATIVE Antibody Screen NEGATIVE Radiography Diagnostic Testing: Clinical Impression(s) from Imaging Studies Abdomen/Pelvis CT 07/05/23 17:30 IMPRESSION: No definite acute or significant abnormality seen in the abdomen or pelvis. Electronically Signed: Jaguar Martines MD at 19:11 EST , Discharge Plan Triage Chief Complaint: Abd Pain ED Provider: Jaime Perdomo Dx/Rx/DC Orders Instructions: ED Abdominal Pain Unkn Cause Fem Prescriptions: No Action albuterol sulfate [Ventolin HFA] 1 INHALER inhaler 2 puff inhalation Q4H PRN PRN (Reason: Shortness Of Breath) Patient Comments: shortness of breath montelukast 10 MG tablet 10 mg PO QHS fluticasone propionate 50 mcg/actuation spray,suspension 2 spray INTRANASAL QHS Patient Comments: Use 1 [place] in each nostril once daily. Trelegy Ellipta 100-62.5-25 mcg blister with device 1 inh INHALATION DAILY Patient Comments: Inhale 1 Puff as instructed once daily. buspirone 5 mg Tablet 10 mg PO BID 30 Days Qty: 120 0RF metoprolol tartrate 25 mg Tablet 25 mg PO BID 30 Days Qty: 60 0RF sucralfate 1 gram Tablet 1 g PO 0700,1100,1600 30 Days Qty: 90 1RF pantoprazole [Protonix] 40 mg tablet,delayed release (DR/EC) 40 mg PO BID 30 Days Qty: 60 3RF Rx Instructions: 40 mg twice daily for 3 months and then once daily. Primary Care Provider: Julio Draper Referrals: Julio Draper MD [Primary Care Provider] - Disposition Disposition: Home, Self Care What to do if you have Problems For any increased pain, shortness of breath, bleeding, nausea or vomiting, chestpain, or any unexpected problems, contact your Primary Care Provider. Call [facility] ([phone]) or report to the closest Emergency Room. Call 911 if necessary. 07/05/232026 <Electronically signed by Jaime Perdomo DO> Cosigner Signature (if applicable): CC: Dr. Julio Draper MD ~ Signed [facility] Work Phone: 1(717) 851-287512-28-2023 History of Present illness Narrative* Rosa Solano, RT(R) - 06/30/2023 3:00 PM EST Radiology Service Progress Note PATIENT NAME: Sneha Cardenas DATE OF SERVICE: June 30, 2023 TIME: 2:52 PM PATIENT IDENTITY VERIFICATION COMPLETED USING TWO (2) IDENTIFIERS: Name and Date of confirmedby patient verbally. FALL SCREENING: Has the patient had 2 falls in the last year or 1 fall with injury or currently using an Ambulatory Assistive Device (Walker, Cane, Wheelchair, Crutches, etc.)? Yes, Patient High Riskfor Falls What interventions were put in place to prevent falls during this visit? Instructed Patient to Callfor Help if Needed, Offered Assistance with Transfers/Clothing, and Increased Observations by Caregivers PATIENT GENDER DATA: Female. status: : No status: NO. PATIENT RELEVANT IMPLANT DATA REVIEWED: Yes RADIOLOGY DEPARTMENT: General X-ray: Exam(s) Completed: Chest X-Ray PERIPHERAL IV DATA: Not applicable SIGNED BY: RT [place](R) June 30, 2023 2:52 PM [facility] Discharge summary Author Yemi Celaya [facility] June 23, 2023 12:29pm Note Date/Time June 23, 2023 12:29pm [facility] Medical Records Department [address] [place] [address] Discharge Summary 06/23/23 1220 MR#: [id number] Acct: [id number] Name: SNEHA CARDENAS Rep #:[id number] : 1955 68 From: Yemi Mckeon PCP: Dr. Julio Draper MD Status:A DM IN Location: [place] [id number] Providers Date of Admission: 06/20/23 Date of Discharge: 06/23/23 Primary Care Physician: Dr. Julio Draper MD Consultations 06/20/23 12:17 Consult: Gastroenterology Routine Consulting Provider: Francesco [facility] Reason for Consult: GI bleed EMERGENT Consult: Yes MD Notified: Yes Date Notified: 06/20/23 Time Notified: 11:30 Method of Notification: ED Physician Initiated Reason For Visit: ACUTE GI BLEED Diagnosis Discharge Diagnosis (1) Bleeding ulcer: Status: Acute Code(s): K28.4 - Chronic or unspecified gastrojejunal ulcer with hemorrhage (2) Anemia requiring transfusions: Status: Acute Code(s): D64.9 - Anemia, unspecified Plan 68-year-old female was admitted after she passed out on the morning of the admission. She was feeling fatigued after recent discharge for COPD with acute exacerbation and right lower lobe pneumonia. Patient had noticed some darker stool, the night before she was admitted. Her hemoglobin in the ED was found ti 4.6. BP 103/38. She was typed and crossmatched 2 units and transfused on the floor. 1. Acute on chronic blood loss anemia from upper GI bleed from duodenal ulcers requiring blood transfusion-: [facility] She was transfused 2 units of PRBC. Prior EGD on 06/09/2023 demonstrated erosive esophagitis hiatal hernia and duodenal ulcer with visible vessel that was cauterized. #2 duodenal ulcers: Repeat EGD was done on 06/21/2023 which showed oozing at thesite of the duodenal ulcer, treated with a heater probe and injections. Patientwas treated with IV Protonix drip after bolus. H&H is 10/32%. Platelet count is 226,000. Discussed with the GI. Patient is discharged on pantoprazole 40 mgtwice daily for 3 months and sucralfate 1 g 3 times daily for 2 months. #3 chronic hypoxic respiratory failure-patient is on 3 L of oxygen at home, currently her oxygen requirement is the same here #4 chronic obstructive pulmonary disease-this appears to be stable at this time,patient on her baseline home medications. #5 paroxysmal T-gzy-ljlbyed is currently not on any anticoagulation due to upperGI bleed Discharge medication reconciliation done. Discharge follow-up instructions completed. Discharge process discussed with the patient and all questions wereanswered to patient's satisfaction. Follow with PCP in 1 to 2 weeks. Follow-upin GI clinic in 1 month. Total time spent, exact 35 minutes on discharge meds reconciliation, examination, coordination of care with nurses and ancillary staff, review of imaging and blood test and discussion with the patient on follow-up instructions. Microbiology Past 72 Hours 06/20/23 17:00 Urine Catheter - Catheter Urine Culture - Final Yeast, not Carmel albicans 06/20/23 10:25 Blood Culture (Wb) - Anticubital Left Blood Culture - Preliminary No growth in 48 hours. 06/20/23 10:20 Blood Culture (Wb) - Right Forearm Blood Culture - Preliminary No growth in 48 hours. Laboratory Results 06/23/23 07:12: WBC 8.0, RBC 3.44 L, Hgb 10.0 L, Hct 32.1 L, MCV 93.3, MCH 29.1,MCHC 31.2 L, RDW Std Deviation 53.4 H, RDW Coeff of Laly 16.3 H, Plt Count 226, MPV 9.7, Immature Gran % (Auto) 0.300, Neut % (Auto) 70.0, Lymph % (Auto) 15.7 L, Robertson % (Auto) 7.0, Eos % (Auto) 6.5 H, Baso % (Auto) 0.5, Absolute Neuts (auto) 5.6, Absolute Lymphs (auto) 1.25, Nucleated RBC % 0, Sodium 139, Potassium 3.4 L, Chloride 102, Carbon Dioxide 35.0 H, Anion Gap 2 L, BUN 7, Creatinine 0.56, Estim Creat Clear Calc 47.14, Est GFR (MDRD) Af Amer 138, Est GFR (MDRD) Non-Af 114, BUN/Creatinine Ratio 12.4, Glucose 74, Calcium 8.3 L Medications at Discharge Home Medications albuterol sulfate 90 mcg/actuation aerosol inhaler (Ventolin HFA) 2 puff inhalation Q4H PRN PRN Shortness Of Breath 08/28/15 montelukast 10 mg tablet 10 mg PO QHS ALLERGIES 02/25/18 fluticasone fur. 100 mcg-umeclid 62.5 mcg-vilant 25 mcg inhalat.powder (Trelegy Ellipta) 1 inh inhalation DAILY COPD 05/01/21 fluticasone propionate 50 mcg/actuation nasal spray,suspension 2 spray intranasal QHS ALLERGIES 05/01/21 buspirone 5 mg tablet 10 mg (2 x 5 mg) PO BID anxiety 30 days #120 tabs 06/16/23 metoprolol tartrate 25 mg tablet 25 mg PO BID HTN 30 days #60 tabs 06/16/23 pantoprazole 40 mg tablet,delayed release (Protonix) 40 mg PO BID GERD 30 days #60 tabs 06/23/23 sucralfate 1 gram tablet 1 g PO 0700,1100,1600 GI 30 days #90 tabs 06/23/23 Physical Exam Narrative Patient stool is clear with no bleeding. No dizzy or chest pain. No shortness of breath. Patient wants to go home. Physical exam: General: Alert, Oriented x3, Cooperative HEENT: Atraumatic, PERRLA, EOMI, Normocephalic Oral: No Gingival or Mucosal Lesions/ Ulcerations Neck: Supple, No JVD, Negative Carotid Bruits Lungs: Air entry diminished in bilateral lung bases. No crepitation/rhonchi Cardiovascular: Regular rate, Regular Rhythm, Normal S1, Normal S2, No murmurs Abdomen: Bowel Sounds Present, Soft, Non Tender, Non-Distended : No renal angle tenderness. No suprapubic tenderness. Extremities: No edema, Capillary Refill Less than 3 Seconds Skin: No rashes, No breakdown Musculoskeletal: No Tenderness to Palpation of Joints or Extremities Neurological: Cranial nerves II-XII grossly intact, DTR 2+/4. No acute focal neurological deficit. Psych/Mental Status: Normal Affect, Appropriate. Weight / BMI Weight Weight: 154 lb 8.705 oz Body Mass Index (BMI) 26.5 ABG / Lab / Microbiology Data 06/23/23 07:12 06/23/23 07:12 Laboratory: Laboratory Results - last 24 hr 06/23/23 07:12: WBC 8.0, RBC 3.44 L, Hgb 10.0 L, Hct 32.1 L, MCV 93.3, MCH 29.1,MCHC 31.2 L, RDW Std Deviation 53.4 H, RDW Coeff of Laly 16.3 H, Plt Count 226, MPV 9.7, Immature Gran % (Auto) 0.300, Neut % (Auto) 70.0, Lymph % (Auto) 15.7 L, Robertson % (Auto) 7.0, Eos % (Auto) 6.5 H, Baso % (Auto) 0.5, Absolute Neuts (auto) 5.6, Absolute Lymphs (auto) 1.25, Nucleated RBC % 0, Sodium 139, Potassium 3.4 L, Chloride 102, Carbon Dioxide 35.0 H, Anion Gap 2 L, BUN 7, Creatinine 0.56, Estim Creat Clear Calc 47.14, Est GFR (MDRD) Af Amer 138, Est GFR (MDRD) Non-Af 114, BUN/Creatinine Ratio 12.4, Glucose 74, Calcium 8.3 L Microbiology: Microbiology 06/20/23 17:00 Urine Catheter - Catheter Urine Culture - Final Yeast, not Carmel albicans 06/20/23 10:25 Blood Culture (Wb) - Anticubital Left Blood Culture - Preliminary No growth in 48 hours. 06/20/23 10:20 Blood Culture (Wb) - Right Forearm Blood Culture - Preliminary No growth in 48 hours. D/C Instructions Discharge Diet: No restrictions Weight Bearing Status: Weight bearing as tolerated Call your doctor if you observe: Fever of 101 or Higher, Coldness, Increased Pain, Numbness or Tingling, Change in Color, Inability to urinate, Inability to have a bowel movement, Using more than 1 pad per hour, Shortness of breath, Dizziness, Fainting spells, Swelling in the ankles, Chest pain, Prolonged hiccupping, Increased palpitations (irregular heartbeat) and Calf discomfort When: IN 2 WEEKS Meaningful Use Info Meaningful Use Diagnoses (Choose all that apply): None applicable Discharge Plan Admission Admit Date/Time: 06/20/23 11:22 Primary Reason for Your Visit: Upper GI bleed Attending Provider: Yemi Celaya Primary Care Provider: Julio Draper Consulting Providers: Edis Mayo; Td Pillai Discharge Orders/Prescriptions Prescriptions: Continued albuterol sulfate [Ventolin HFA] 1 INHALER inhaler 2 puff inhalation Q4H PRN PRN (Reason: Shortness Of Breath) Patient Comments: shortness of breath montelukast 10 MG tablet 10 mg PO QHS fluticasone propionate 50 mcg/actuation spray,suspension 2 spray INTRANASAL QHS Patient Comments: Use 1 [place] in each nostril once daily. Trelegy Ellipta 100-62.5-25 mcg blister with device 1 inh INHALATION DAILY Patient Comments: Inhale 1 Puff as instructed once daily. buspirone 5 mg Tablet 10 mg PO BID 30 Days Qty: 120 0RF metoprolol tartrate 25 mg Tablet 25 mg PO BID 30 Days Qty: 60 0RF sucralfate 1 gram Tablet 1 g PO 0700,1100,1600 30 Days Qty: 90 1RF pantoprazole [Protonix] 40 mg tablet,delayed release (DR/EC) 40 mg PO BID 30 Days Qty: 60 3RF Rx Instructions: 40 mg twice daily for 3 months and then once daily. Discontinued prednisone 20 mg tablet 40 mg PO DAILY 3 Days Qty: 6 0RF prednisone 10 mg tablet 30 mg PO DAILY 3 Days Qty: 9 0RF prednisone 20 mg tablet 20 mg PO DAILY 3 Days Qty: 3 0RF Referrals / Follow Up: Ramon Antunez DO [Med Staff - Active Staff] - Within 1 Month Julio Draper MD [Primary Care Provider] - Disposition Disposition (needs filled in before D/C Order can be placed): Home, Self Care Charges/Coding Visit Charges Inpatient E&M: 58254 Disch Hosp >30min 06/23/23 1229 <Electronically signed by Yemi Celaya MD> Cosigner Signature (if applicable): CC: Dr. Yemi Celaya MD; Dr. Julio Draper MD~ Signed [facility] Work Phone: 1(343) 301-994612-21-2023 Discharge summary Author Yemi Celaya [facility] June 23, 2023 12:20pm Note Date/Time June 23, 2023 10:57am [facility] Medical Records Department [address] [place] [address] Instructions for Home/Discharge Instructions 06/23/23 1010 MR#: [id number] Acct: [id number] Name: SNEHA CARDENAS Rep #:[id number] : 1955 68 From: Yemi Mckeon PCP: Dr. Julio Draper MD Status:A DM IN Discharge Instructions Diet Discharge Diet: No restrictions Activity Discharge Activity: Return to Normal Activity Weight Bearing Status: Weight bearing as tolerated Dressing / Incision Call your doctor if you observe: Fever of 101 or Higher, Coldness, Increased Pain, Numbness or Tingling, Change in Color, Inability to urinate, Inability to have a bowel movement, Using more than 1 pad per hour, Shortness of breath, Dizziness, Fainting spells, Swelling in the ankles, Chest pain, Prolonged hiccupping, Increased palpitations (irregular heartbeat) and Calf discomfort Follow Up Care When: IN 2 WEEKS Test Results: Test results from this visit will be discussed in further detail at your follow- up appointment, if applicable. Discharge Plan Admission Admit Date/Time: 06/20/23 11:22 Primary Reason for Your Visit: Upper GI bleed Attending Provider: Yemi Celaya Primary Care Provider: Julio Draper Consulting Providers: Edis Mayo; Td Pillai Discharge Orders/Prescriptions Prescriptions: Continued albuterol sulfate [Ventolin HFA] 1 INHALER inhaler 2 puff inhalation Q4H PRN PRN (Reason: Shortness Of Breath) Patient Comments: shortness of breath montelukast 10 MG tablet 10 mg PO QHS fluticasone propionate 50 mcg/actuation spray,suspension 2 spray INTRANASAL QHS Patient Comments: Use 1 [place] in each nostril once daily. Trelegy Ellipta 100-62.5-25 mcg blister with device 1 inh INHALATION DAILY Patient Comments: Inhale 1 Puff as instructed once daily. buspirone 5 mg Tablet 10 mg PO BID 30 Days Qty: 120 0RF metoprolol tartrate 25 mg Tablet 25 mg PO BID 30 Days Qty: 60 0RF sucralfate 1 gram Tablet 1 g PO 0700,1100,1600 30 Days Qty: 90 1RF pantoprazole [Protonix] 40 mg tablet,delayed release (DR/EC) 40 mg PO BID 30 Days Qty: 60 3RF Rx Instructions: 40 mg twice daily for 3 months and then once daily. Discontinued prednisone 20 mg tablet 40 mg PO DAILY 3 Days Qty: 6 0RF prednisone 10 mg tablet 30 mg PO DAILY 3 Days Qty: 9 0RF prednisone 20 mg tablet 20 mg PO DAILY 3 Days Qty: 3 0RF Referrals / Follow Up: Ramon Antunez DO [Med Staff - Active Staff] - Within 1 Month Julio Draper MD [Primary Care Provider] - Disposition Disposition (needs filled in before D/C Order can be placed): Home, Self Care 06/23/23 1220<Electronically signed by Yemi Celaya MD>Yemi Celaya MD CC: Dr. Edis Mayo MD; Dr. Td Pillai DO; Dr. Julio Draper MD ~ Signed [facility] Work Phone: 1(917) 559-887212-20-2023 Progress note Author Ramon Antunez [facility] June 22, 2023 5:04pm Note Date/Time June 22, 2023 4:34pm [facility] Medical Records Department [address] [place] [address] Progress Note - GI 06/22/23 1633 MR#: [id number] Acct: [id number] Name: SNEHA CARDENAS Rep #:[id number] : 1955 68 From: Ramon Antunez DO PCP: Dr. Julio Draper MD Status:A DM IN Location: [facility] [id number] Subjective Subjective Patient underwent repeat EGD yesterday. She is actually doing very well. She would like to have her diet increased. Objective Data Objective Data Vital Signs: Vital Signs Temp Pulse Resp BP Pulse Ox O2 Del Method O2 Flow Rate 98 F 82 19 H 137/61 H 100 Nasal Cannula 3 06/22/23 14:58 06/22/23 14:58 06/22/23 14:58 06/22/23 14:58 06/22/23 14:58 06/22/23 15:26 06/22/23 15:26 Oxygen Flow Rate (L/min) 3 Oxygen Delivery Method Nasal Cannula Weight: 154 lb 5.177 oz Body Mass Index (BMI) 26.4 Intake & Output: Intake and Output for Last 24 Hours 06/20/23 06/21/23 06/22/23 23:59 23:59 23:59 Intake Total 1726.33 / 1726.33 2703.87 / 2703.87 1945.00 / 1945.00 Output Total 300 / 300 2400 / 2400 675 / 675 Balance 1426.33 / 1426.33 303.87 / 303.87 1270.00 / 1270.00 Lab / Micro Data 06/22/23 04:15 06/22/23 04:15 Labs: Laboratory Results - last 24 hr 06/22/23 04:15: WBC 8.4, RBC 3.23 L, Hgb 9.3 L, Hct 29.2 L, MCV 90.4, MCH 28.8, MCHC 31.8 L, RDW Std Deviation 51.2 H, RDW Coeff of Laly 15.9 H, Plt Count 223, MPV 9.7, Immature Gran % (Auto) 0.400, Neut % (Auto) 88.5 H, Lymph % (Auto) 7.8 L, Robertson % (Auto) 3.3, Eos % (Auto) 0.0, Baso % (Auto) 0.0, Absolute Neuts (auto)7.4, Absolute Lymphs (auto) 0.66 L, Nucleated RBC % 0, Sodium 141, Potassium 4.2, Chloride 101, Carbon Dioxide 33.0 H, Anion Gap 7, BUN 12, Creatinine 0.60, Estim Creat Clear Calc 47.14, Est GFR (MDRD) Af Amer 128, Est GFR (MDRD) Non-Af 106, BUN/Creatinine Ratio 20.0, Glucose 133 H, Calcium 7.6 L Micro: Microbiology 06/20/23 17:00 Urine Catheter - Catheter Urine Culture - Final Yeast, not Carmel albicans 06/20/23 10:25 Blood Culture (Wb) - Anticubital Left Blood Culture - Preliminary No growth in 48 hours. 06/20/23 10:20 Blood Culture (Wb) - Right Forearm Blood Culture - Preliminary No growth in 48 hours. Physical Exam Const alert, oriented x3 and no apparent distress General Appearance: cooperative, well kempt and well developed Orientation / Consciousness: awake, oriented to person, oriented to place and oriented to time HEENT normocephalic, head/scalp atraumatic and moist oral mucous membranes Eyes PERRL, EOMs intact bilaterally and conjunctivae normal Neck supple, no JVD, thyroid normal and no carotid bruits General: trachea midline Resp normal respiratory effort, no retractions, no use of accessory muscles and clearto auscultation bilaterally Auscultation: Negative for rales, rhonchi or wheezes Cardio regular rate, regular rhythm, S1 normal heart sound, S2 normal heart sound, no murmurs, no rub and no gallops GI normal to inspection, nondistended, normoactive bowel sounds, soft to palpation,non-tender and non-distended Extremity no clubbing, cyanosis or edema Skin no rashes or lesions noted General Skin Exam: no breakdown Neuro oriented x3, CN's II-XII intact bilaterally, no focal motor deficits and no sensory deficits noted Sensorium / Orientation: awake, alert, oriented to person, oriented to place andoriented to time Speech: speech normal Psych affect normal Assessment & Plan Assessment/Plan (1) Bleeding ulcer: (2) Anemia requiring transfusions: PLAN: Plan Assessment The patient has a known history of COPD and chronic hypoxemic respiratory failure with a baseline 3 L/min oxygen requirement. She presented with progressive weakness, fatigue and worsening shortness of breath. She is status post thoracentesis on last admission with a history of upper GI bleed secondary to duodenal ulcer believed to be secondary to prednisone. She underwent repeat EGD yesterday and was discovered to have oozing at the siteof the duodenal ulcer. Biopsies were taken that a duodenal ulcer in it was endoscopically treated. Her hemoglobin seems to be stable for now. I am okay with advancing her diet. PPI therapy twice a day for 12 weeks. Carafate therapy 3 times a day for 8 weeks. Continue to monitor hemoglobin. Charges/Coding Visit Charges Inpatient E&M: 70977 Subs Hosp L3 06/22/23 1704 <Electronically signed by Rmaon Friend > Cosigner Signature (if applicable): CC: ~ Signed [facility] Work Phone: 1(876) 349-694712-20-2023 Progress note Author Td Pillai [facility] June 22, 2023 3:42pm Note Date/Time June 22, 2023 3:40pm [facility] Medical Records Department [address] [place] [address] Progress Note - Hospitalist 06/22/23 1534 MR#: [id number] Acct: [id number] Name: SNEHA CARDENAS Rep #:[id number] : 1955 68 From: Td Pillai DO PCP: Dr. Julio Draper MD Status:A DM IN Location: [place] [address] Reason for Visit Reason for Visit: Diagnoses Anemia, unspecified (06/20/23) Chronic or unspecified gastrojejunal ulcer with hemorrhage (06/20/23) Subjective Subjective Patient was seen and examined today, her hemoglobin today was 9.3, she appears stable for transfer from the ICU at this time. Patient remains on 3 L via nasalcannula, she is on chronic oxygen at home. Objective Data Objective Data Vital Signs: Vital Signs Temp Pulse Resp BP Pulse Ox O2 Del Method O2 Flow Rate 98 F 82 19 H 137/61 H 100 Nasal Cannula 3 06/22/23 14:58 06/22/23 14:58 06/22/23 14:58 06/22/23 14:58 06/22/23 14:58 06/22/23 15:26 06/22/23 15:26 Oxygen Flow Rate (L/min) 3 Oxygen Delivery Method Nasal Cannula Weight: 70 kg Body Mass Index (BMI) 26.4 Intake & Output: Intake and Output for Last 24 Hours 06/20/23 06/21/23 06/22/23 23:59 23:59 23:59 Intake Total 1726.33 / 1726.33 2703.87 / 2703.87 1945.00 / 1945.00 Output Total 300 / 300 2400 / 2400 675 / 675 Balance 1426.33 / 1426.33 303.87 / 303.87 1270.00 / 1270.00 Lab / Micro Data 06/22/23 04:15 06/22/23 04:15 Labs: Laboratory Results - last 24 hr 06/22/23 04:15: WBC 8.4, RBC 3.23 L, Hgb 9.3 L, Hct 29.2 L, MCV 90.4, MCH 28.8, MCHC 31.8 L, RDW Std Deviation 51.2 H, RDW Coeff of Laly 15.9 H, Plt Count 223, MPV 9.7, Immature Gran % (Auto) 0.400, Neut % (Auto) 88.5 H, Lymph % (Auto) 7.8 L, Robertson % (Auto) 3.3, Eos % (Auto) 0.0, Baso % (Auto) 0.0, Absolute Neuts (auto)7.4, Absolute Lymphs (auto) 0.66 L, Nucleated RBC % 0, Sodium 141, Potassium 4.2, Chloride 101, Carbon Dioxide 33.0 H, Anion Gap 7, BUN 12, Creatinine 0.60, Estim Creat Clear Calc 47.14, Est GFR (MDRD) Af Amer 128, Est GFR (MDRD) Non-Af 106, BUN/Creatinine Ratio 20.0, Glucose 133 H, Calcium 7.6 L Micro: Microbiology 06/20/23 17:00 Urine Catheter - Catheter Urine Culture - Final Yeast, not Carmel albicans 06/20/23 10:25 Blood Culture (Wb) - Anticubital Left Blood Culture - Preliminary No growth in 48 hours. 06/20/23 10:20 Blood Culture (Wb) - Right Forearm Blood Culture - Preliminary No growth in 48 hours. Physical Exam Const alert, oriented x3 and no apparent distress General Appearance: cooperative, well kempt and well developed Orientation / Consciousness: awake, oriented to person, oriented to place and oriented to time HEENT normocephalic, head/scalp atraumatic and moist oral mucous membranes Eyes PERRL, EOMs intact bilaterally and conjunctivae normal Neck supple, no JVD, thyroid normal and no carotid bruits General: trachea midline Resp normal respiratory effort, no retractions, no use of accessory muscles and clearto auscultation bilaterally Auscultation: Negative for rales, rhonchi or wheezes Cardio regular rate, regular rhythm, S1 normal heart sound, S2 normal heart sound, no murmurs, no rub and no gallops GI normal to inspection, nondistended, normoactive bowel sounds, soft to palpation,non-tender and non-distended Extremity no clubbing, cyanosis or edema Skin no rashes or lesions noted General Skin Exam: no breakdown Neuro oriented x3, CN's II-XII intact bilaterally, no focal motor deficits and no sensory deficits noted Sensorium / Orientation: awake, alert, oriented to person, oriented to place andoriented to time Speech: speech normal Psych affect normal Assessment & Plan Assessment/Plan (1) Bleeding ulcer: PLAN: Plan 1 acute on chronic blood loss anemia from upper GI bleed from duodenal ulcers requiring blood transfusion-patient's hemoglobin will be rechecked tomorrow, patient will remain on her current medications, she will be transferred to [facility] #2 duodenal ulcers-both nonbleeding and oozing, this was treated with a heater probe and injections. Patient will remain on IV Protonix and transitioned to #3 chronic hypoxic respiratory failure-patient is on 3 L of oxygen at home, currently her oxygen requirement is the same here #4 chronic obstructive pulmonary disease-this appears to be stable at this time,patient will remain on her current medications #5 paroxysmal [id number] is currently not on any anticoagulation due to upperGI bleed Clinical time spent by myself addressing patient's medical issues, reviewing herdata, and collaborating with patient's care team: 25 minutes Charges/Coding Visit Charges Inpatient E&M: 34803 Subs Hosp L1 06/22/23 1542 <Electronically signed by Td Pillai DO> Cosigner Signature (if applicable): CC: ~ Signed [facility] Work Phone: 1(710) 175-693312-20-2023 Consult note Author Ramon Friend [facility] June 22, 2023 12:59pm Note Date/Time June 20, 2023 4:01pm [facility] Medical Records Department [address] [place] [address] Consultation - GI 06/20/23 1600 MR#: [id number] Acct: [id number] Name: SNEHA CARDENAS Rep #:[id number] : 1955 68 From: Ramon Friend DO PCP: Dr. Julio Draper MD Status:A DM IN Location: ICU ICU05-1 HPI Consult Data Date of Consult: 06/20/23 HPI Narrative Reason for Consultation: GI bleed HPI Narrative: SNEHA CARDENAS, is a 68 F who presents with progressive weakness and fatigue. She was recently admitted to [facility] ED on 06/02/2023 with worsening shortness of breath. She had a prolonged hospital course as noted below. Patient was discharged home with home health care in stable condition on06/16. At that time her hemoglobin was up to 7.6. Recheck of her hemoglobin today in the ED it was down to 4.6. She was recently discharged from the hospital after an acute on chronic combinedrespiratory failure secondary to COPD with exacerbation. She requires 3 L nasal cannula at baseline, follows with [facility] pulmonology. She was suspected exacerbation secondary to right lower lobe pneumonia. Patient required ICU management for several days during admission. She completed 10-day course of IVantibiotics on 06/13. S/p thoracentesis on 06/13 with only 70 cc fluid removed as noted below, cultures and Gram stain negative. She was discharged on steroid taper. She also had a diagnosis of sepsis secondary to right lower lobe community- acquired pneumonia with parapneumonic effusion. She presented with sepsis suspected due to right lower lobe pneumonia with related organ dysfunction as evidenced by need for NIPPV support. She underwent thoracentesis on 06/13 with only 70 cc fluid removed. I was consulted for melanotic stools. She was determined to have acute blood loss anemia secondary to acute upper GI bleed She had 2 g hemoglobin drop on 06/08, suspected due to GI bleed. She underwent EGD that showed grade a erosive esophagitis, hiatal hernia and duodenal ulcer with visible vessel that was cauterized. Patient has had no recurrence of bleeding since then. However, patient's hemoglobin decreased from 8.3 to 6.4 on 06/15. Repeat hemoglobin 6.7 on confirmatory testing. Patient did have drop of all cell lines with these labdraws, suspect that is the primary etiology of the worsened anemia. There was no evidence of recurrent bleeding at that time. She received 1 unit packed red blood cells given on 06/15 with appropriate response. [facility] Medical History Anxiety Asthma Benign essential hypertension Benign essential tremor COPD (chronic obstructive pulmonary disease) Former tobacco use Lung nodules Migraines On home oxygen therapy Pneumonia due to COVID-19 virus Home Medications albuterol sulfate 90 mcg/actuation aerosol inhaler (Ventolin HFA) 2 puff inhalation Q4H PRN PRN Shortness Of Breath 08/28/15 [History Last Taken 11/30/22 10:00] montelukast 10 mg tablet 10 mg PO QHS ALLERGIES 02/25/18 [History Last Taken 11/29/22] fluticasone fur. 100 mcg-umeclid 62.5 mcg-vilant 25 mcg inhalat.powder (Trelegy Ellipta) 1 inh inhalation DAILY COPD 05/01/21 [History Last Taken 11/30/22] fluticasone propionate 50 mcg/actuation nasal spray,suspension 2 spray intranasal QHS ALLERGIES 05/01/21 [History Last Taken 11/28/22] buspirone 5 mg tablet 10 mg (2 x 5 mg) PO BID anxiety 30 days #120 tabs 06/16/23[Rx Last Taken Unknown] metoprolol tartrate 25 mg tablet 25 mg PO BID HTN 30 days #60 tabs 06/16/23 [Rx Last Taken Unknown] pantoprazole 40 mg tablet,delayed release (Protonix) 40 mg PO BID GERD 30 days #60 tabs 06/16/23 [Rx Last Taken Unknown] prednisone 10 mg tablet 30 mg (3 x 10 mg) PO DAILY check with PCP 3 days #9 tabs108/17/22 [Rx Last Taken Unknown] prednisone 20 mg tablet 20 mg PO DAILY 3 days #3 tabs 06/16/23 [Rx Last Taken Unknown] prednisone 20 mg tablet 40 mg (2 x 20 mg) PO DAILY Check with PCP 3 days #6 tabs108/17/22 [Rx Last Taken Unknown] sucralfate 1 gram tablet 1 g PO 0700,1100,1600 GI 30 days #90 tabs 06/16/23 [Rx Last Taken Unknown] Allergy/AdvReac Type Severity Reaction Status Date / Time cephalexin monohydrate Allergy Chest Verified 06/20/23 10:07 [From Keflex] tightness Surgical History H/O bilateral salpingectomy History of herniorrhaphy Hx of cholecystectomy Hx of tonsillectomy Social History adopted: Yes household members: family housing: house Smoking Status: Former smoker alcohol intake: never substance use type: does not use ROS ROS Narrative GENERAL: Fatigue HEENT: denies headache, sinus congestion, or drainage, dysphagia RESPIRATORY: d shortness of breath, dyspnea on exertion CARDIAC: denies chest pain, palpitations, orthopnea, PND GASTROINTESTINAL:, melena, GENITOURINARY: denies dysuria, urgency, frequency, heamaturia EXTREMITY: denies swelling MUSCULOSKELETAL: denies current joint pain or tenderness NEUROLOGIC: denies focal numbness, weakness, tingling HEMATOLOGIC: denies easy bruising and/or hemorrhage INTEGUMENT: denies rashes PSYCHIATRIC: denies suicidal or homicidal ideation Physical Exam Narrative GENERAL: Pale looking HEENT: Atraumatic; normocephalic EYES; Anicteric, PERRL of the conjunctiva NECK; supple, normal thyroid, RESPIRATORY: Diminished to auscultation CARDIOVASCULAR: Regular S1 S2, GI: soft, normoactive bowel sounds, : No Renal angle tenderness; EXTREMITIES: No edema, no clubbing, MUSCULOSKELETAL: no muscle wasting NEURO: Awake; no lateralizing signs. SKIN: No Rash PSYCH; Flat affect Lab / Micro Data 06/20/23 10:25 06/20/23 10:25 Labs: Laboratory Results - last 24 hr 06/20/23 10:25: WBC 15.5 H, RBC 1.55 L, Hgb 4.6 L*, Hct 15.3 L, MCV 98.7 D, MCH29.7, MCHC 30.1 L, RDW Std Deviation 52.9 H, RDW Coeff of Laly 15.5 H, Plt Count 459 H, MPV 10.0, Immature Gran % (Auto) 0.800, Neut % (Auto) 71.4 H, Lymph % (Auto) 17.6 L, Robertson % (Auto) 7.9, Eos % (Auto) 1.8, Baso % (Auto) 0.5, Absolute Neuts (auto) 11.1 H, Absolute Lymphs (auto) 2.72, Nucleated RBC % 0, Diff Path Review Reviewed, Sodium 140, Potassium 3.4 L, Chloride 103, Carbon Dioxide 32.0,Anion Gap 5, BUN 31 H, Creatinine 0.58, Estim Creat Clear Calc 49.12, Est GFR (MDRD) Af Amer 132, Est GFR (MDRD) Non-Af 109, BUN/Creatinine Ratio 53.0 H, Glucose 114 H, Lactic Acid 2.2 H*, Calcium 7.6 L, Total Bilirubin 0.30, AST 13 L, ALT 12 L, Alkaline Phosphatase 54, Troponin I High Sens 8, Total Protein 5.0 L, Albumin 2.0 L, Globulin 3.0, Albumin/Globulin Ratio 0.7 L 06/20/23 11:00: Blood Type O NEGATIVE, Antibody Screen NEGATIVE, Crossmatch See Detail Imagaing Radiology Impression Chest X-Ray 06/20/23 10:46 IMPRESSION: Pleural parenchymal changes at the right lung base although the pleural effusion has improved as compared to prior study. Persistent bibasilar atelectasis and/or infiltrate persists. Electronically Signed: Michael Gaxiola MD at 11:07 EST , Assessment & Plan Assessment/Plan (1) Bleeding ulcer: PLAN: Plan Patient is a 68-year-old female who presented to [facility] ED on 06/20/2023 with worsening shortness of breath and fatigue. She was discovered to have a hemoglobin of 4.6. This is likely in acute blood loss anemia secondary to acute upper GI bleed. She had 2 g hemoglobin drop on 06/08, suspected due to GI bleed. S/p EGD that showed grade a erosive esophagitis, hiatal hernia and duodenal ulcer with visible vessel that was cauterized. Patient has had no recurrence of bleeding since then. However, patient's hemoglobin decreased from 8.3 to 6.4 on 06/15. Repeat hemoglobin 6.7 on confirmatory testing. Patient did have drop of all cell lineswith these lab draws, suspect that is the primary etiology of the worsened anemia. No evidence of bleeding at this time. ? I will start her on a PPI drip and octreotide drip. She will undergo an upperendoscopy tomorrow. She was explained alternatives, risk, benefits including outstanding bleeding, infection, sepsis, perforation, need for more surgery . Have an ASA of 3. Charges/Coding Visit Charges Inpatient E&M: 35508 Init Hosp L3 06/22/23 1259 <Electronically signed by Ramon Friend DO> Cosigner Signature (if applicable): CC: Dr. Edis Mayo MD; Dr. Julio Draper MD~ Signed [facility] Work Phone: 1(344) 204-839212-19-2023 Procedure [facility] 06-21-2023 Procedure [facility]12-19-2023 Progress note Author Edis Mayo [facility] June 21, 2023 10:00am Note Date/Time June 21, 2023 7:26am [facility] Medical Records Department [address] [place] [address] Progress Note - Hospitalist 06/21/23719 MR#: [id number] Acct: [id number] Name: SNEHA CARDENAS Rep #:[id number] : 1955 68 From: Edis Mayo MD PCP: Dr. Julio Draper MD Status:A DM IN Location: ICU ICU-1 Reason for Visit Reason for Visit: Diagnoses Anemia, unspecified (06/20/23) Chronic or unspecified gastrojejunal ulcer with hemorrhage (06/20/23) Subjective Subjective Patient was transfused 4 unit PRBC following admission hemoglobin up to 9.7. Patient scheduled to undergo EGD Objective Data Objective Data Vital Signs: Vital Signs Temp Pulse Resp BP Pulse Ox O2 Del Method O2 Flow Rate 99.1 F 80 17 142/63 H 92 Nasal Cannula 2 06/21/23 07:00 06/21/23 07:00 06/21/23 07:00 06/21/23 07:00 06/21/23 07:00 06/21/23 07:00 06/21/23 07:00 Oxygen Flow Rate (L/min) 2 Oxygen Delivery Method Nasal Cannula Weight: 68.3 kg Body Mass Index (BMI) 25.8 Intake & Output: Intake and Output for Last 24 Hours 06/19/23 06/20/23 06/21/23 23:59 23:59 23:59 Intake Total 1726.33 / 1726.33 400 / 400 Output Total 300 / 300 600 / 600 Balance 1426.33 / 1426.33 -200 / -200 Lab / Micro Data 06/21/23 03:15 06/21/23 03:15 Labs: Laboratory Results - last 24 hr 06/20/23 10:25: WBC 15.5 H, RBC 1.55 L, Hgb 4.6 L*, Hct 15.3 L, MCV 98.7 D, MCH29.7, MCHC 30.1 L, RDW Std Deviation 52.9 H, RDW Coeff of Laly 15.5 H, Plt Count 459 H, MPV 10.0, Immature Gran % (Auto) 0.800, Neut % (Auto) 71.4 H, Lymph % (Auto) 17.6 L, Robertson % (Auto) 7.9, Eos % (Auto) 1.8, Baso % (Auto) 0.5, Absolute Neuts (auto) 11.1 H, Absolute Lymphs (auto) 2.72, Nucleated RBC % 0, Diff Path Review Reviewed, Sodium 140, Potassium 3.4 L, Chloride 103, Carbon Dioxide 32.0,Anion Gap 5, BUN 31 H, Creatinine 0.58, Estim Creat Clear Calc 49.12, Est GFR (MDRD) Af Amer 132, Est GFR (MDRD) Non-Af 109, BUN/Creatinine Ratio 53.0 H, Glucose 114 H, Lactic Acid 2.2 H*, Calcium 7.6 L, Total Bilirubin 0.30, AST 13 L, ALT 12 L, Alkaline Phosphatase 54, Troponin I High Sens 8, Total Protein 5.0 L, Albumin 2.0 L, Globulin 3.0, Albumin/Globulin Ratio 0.7 L 06/20/23 11:00: Blood Type O NEGATIVE, Antibody Screen NEGATIVE, Crossmatch See Detail 06/20/23 12:30: Lactic Acid 1.9 06/20/23 17:00: Urine Color Yellow, Urine Clarity Clear, Urine pH 6.0, Ur Specific [place] 1.015, Urine Protein Negative, Urine Glucose (UA) Normal, UrineKetones Negative, Urine Occult Blood Negative, Urine Nitrite Negative, Urine Bilirubin Negative, Urine Urobilinogen Normal, Ur Leukocyte Esterase 25 H, UrineRBC 0 SEEN, Urine WBC 0-5 SEEN, Ur Squamous Epith Cells 10-25 SEEN, Urine Bacteria 0 SEEN, Urine Mucus 0 SEEN, Urine Yeast 1+, Urine Test Negative 06/21/23 00:05: Hgb 10.0 L, Hct 30.4 L 06/21/23 03:15: WBC 10.0, RBC 3.36 L, Hgb 9.7 L, Hct 29.9 L, MCV 89.0 D, MCH 28.9, MCHC 32.4 D, RDW Std Deviation 52.4 H, RDW Coeff of Laly 16.5 H, Plt [place]076, MPV 9.5, Immature Gran % (Auto) 0.500, Neut % (Auto) 72.1 H, Lymph % (Auto)15.4 L, Robertson % (Auto) 7.0, Eos % (Auto) 4.4, Baso % (Auto) 0.6, Absolute Neuts (auto) 7.2, Absolute Lymphs (auto) 1.54, Nucleated RBC % 0, PT 14.5, INR 1.1, APTT 23.4 L, Sodium 143, Potassium 3.9, Chloride 103, Carbon Dioxide 35.0 H, Anion Gap 5, BUN 19 H, Creatinine 0.62, Estim Creat Clear Calc 47.14, Est GFR (MDRD) Af Amer 123, Est GFR (MDRD) Non-Af 101, BUN/Creatinine Ratio 30.4 H, Glucose 140 H, Calcium 7.5 L Radiography Diagnostic Testing: Radiology Impression Chest X-Ray 06/20/23 10:46 IMPRESSION: Pleural parenchymal changes at the right lung base although the pleural effusion has improved as compared to prior study. Persistent bibasilar atelectasis and/or infiltrate persists. Electronically Signed: Michael Gaxiola MD at 11:07 EST , Physical Exam Narrative GENERAL: Pale looking HEENT: Atraumatic; normocephalic EYES; Anicteric, PERRL of the conjunctiva NECK; supple, normal thyroid, RESPIRATORY: Diminished to auscultation CARDIOVASCULAR: Regular S1 S2, GI: soft, normoactive bowel sounds, : No Renal angle tenderness; EXTREMITIES: No edema, no clubbing, MUSCULOSKELETAL: no muscle wasting NEURO: Awake; no lateralizing signs. SKIN: No Rash PSYCH; Flat affect Assessment & Plan Assessment/Plan (1) Anemia requiring transfusions: (2) Bleeding ulcer: PLAN: Plan Patient is a 68-year-old lady admitted with severe symptomatic anemia 1. Severe symptomatic anemia ? Secondary to acute on chronic blood loss anemia from upper GI bleed. EGD from06/09/2023 demonstrated erosive esophagitis hiatal hernia and duodenal ulcer with visible vessel that was cauterized. Patient admitted to the intensive careunit after patient was started on crossmatch and an order given for patient to be transfused with 2 unit PRBC ? 06/21/2023;Patient was transfused 4 unit PRBC following admission hemoglobin up to 9.7. Patient scheduled to undergo EGD 2. Upper GI bleed ?EGD on 06/09/2023 demonstrated erosive esophagitis hiatal hernia and duodenal ulcer with visible vessel that was cauterized. Patient presented with melenic stools as well as significant anemia. Started on Protonix drip after patient did receive bolus. Consult placed to Dr. Antunez with GI. Patient kept n.p.o. for possible repeat endoscopic evaluation -06/21/2023 EGD planned for today 3. Chronic hypoxic and hypercapnic respiratory failure secondary to COPD ? Patient is on 3 L of oxygen at home 4. COPD ? With recent exacerbation requiring hospitalization 5. Recent admission for sepsis secondary to right lower lobe pneumonia with parapneumonic effusion ? Patient underwent thoracocentesis cultures had remained negative to date at the time of discharge and still remains negative to date 6. Paroxysmal A-fib ? Patient had rapid ventricular response during her previous admission. Patientwas placed on Eliquis which had to be discontinued due to GI bleed remains on beta-blockers 7. Anxiety disorder ? Patient is on BuSpar 8. DVT prophylaxis ? Bilateral SCDs for now Time spent in the patient's overall evaluation,decision-making process, review of diagnostic data, adjustment of management, discussion with other providers, nursing nursing and ancillary staff involved in patient's care documentation, 50minutes Charges/Coding Visit Charges Inpatient E&M: 30106 Subs Hosp L3 06/21/23 1000 <Electronically signed by Edis Mayo MD> Cosigner Signature (if applicable): CC: ~ Signed [facility] Work Phone: 1(430) 558-536212-18-2023 History and physical note Author Edis Mayo [facility] June 20, 2023 12:26pm Note Date/Time June 20, 2023 11:23am [facility] Medical Records Department [address] [place] [address] H&P Exam - Hospitalist 06/20/23 1123 MR#: [id number] Acct: [id number] Name: SNEHA CARDENAS Rep #:[id number] : 1955 68 From: Edis Mayo MD PCP: Dr. Julio Draper MD Status:A DM IN Location: ICU ICU05-1 HPI - General General Date of Admission: 06/20/23 Date of Service: 06/20/23 Chief Complaint: Passed out HPI Narrative SNEHA CARDENAS, is a 68 F who presents after having positive. Patient was recently on admission for acute on chronic respiratory failure secondary to COPDwith acute exacerbation, sepsis secondary to right lower lobe pneumonia with parapneumonic effusion as well as acute blood loss anemia for which patient underwent EGD which demonstrated erosive esophagitis hiatal hernia and duodenal ulcer with visible vessel that was cauterized. Patient was discharged home on 06/16/2023. Patient reports feeling fatigue since being discharged. On the morning of her admission she apparently passed out. Prior to that patient had noticed some dark stools. Upon presentation to the emergency department, patient hemoglobin was found to be 4.6. Blood pressure was 103/38. Patient wastyped and crossmatched and order given for patient to be transfused with 2 unit PRBC started on Protonix drip and subsequently admitted to the intensive care unit [facility] Medical History Anxiety Asthma Benign essential hypertension Benign essential tremor COPD (chronic obstructive pulmonary disease) Former tobacco use Lung nodules Migraines On home oxygen therapy Pneumonia due to COVID-19 virus Home Medications albuterol sulfate 90 mcg/actuation aerosol inhaler (Ventolin HFA) 2 puff inhalation Q4H PRN PRN Shortness Of Breath 08/28/15 [History Last Taken 11/30/22 10:00] montelukast 10 mg tablet 10 mg PO QHS ALLERGIES 02/25/18 [History Last Taken 11/29/22] fluticasone fur. 100 mcg-umeclid 62.5 mcg-vilant 25 mcg inhalat.powder (Trelegy Ellipta) 1 inh inhalation DAILY COPD 05/01/21 [History Last Taken 11/30/22] fluticasone propionate 50 mcg/actuation nasal spray,suspension 2 spray intranasal QHS ALLERGIES 05/01/21 [History Last Taken 11/28/22] buspirone 5 mg tablet 10 mg (2 x 5 mg) PO BID anxiety 30 days #120 tabs 06/16/23[Rx Last Taken Unknown] metoprolol tartrate 25 mg tablet 25 mg PO BID HTN 30 days #60 tabs 06/16/23 [Rx Last Taken Unknown] pantoprazole 40 mg tablet,delayed release (Protonix) 40 mg PO BID GERD 30 days #60 tabs 06/16/23 [Rx Last Taken Unknown] prednisone 10 mg tablet 30 mg (3 x 10 mg) PO DAILY check with PCP 3 days #9 tabs108/17/22 [Rx Last Taken Unknown] prednisone 20 mg tablet 20 mg PO DAILY 3 days #3 tabs 06/16/23 [Rx Last Taken Unknown] prednisone 20 mg tablet 40 mg (2 x 20 mg) PO DAILY Check with PCP 3 days #6 tabs108/17/22 [Rx Last Taken Unknown] sucralfate 1 gram tablet 1 g PO 0700,1100,1600 GI 30 days #90 tabs 06/16/23 [Rx Last Taken Unknown] Allergy/AdvReac Type Severity Reaction Status Date / Time cephalexin monohydrate Allergy Chest Verified 06/20/23 10:07 [From Keflex] tightness Surgical History H/O bilateral salpingectomy History of herniorrhaphy Hx of cholecystectomy Hx of tonsillectomy Social History adopted: Yes household members: family housing: house Smoking Status: Former smoker alcohol intake: never substance use type: does not use ROS ROS Narrative GENERAL: Fatigue HEENT: denies headache, sinus congestion, or drainage, dysphagia RESPIRATORY: d shortness of breath, dyspnea on exertion CARDIAC: denies chest pain, palpitations, orthopnea, PND GASTROINTESTINAL:, melena, GENITOURINARY: denies dysuria, urgency, frequency, heamaturia EXTREMITY: denies swelling MUSCULOSKELETAL: denies current joint pain or tenderness NEUROLOGIC: denies focal numbness, weakness, tingling HEMATOLOGIC: denies easy bruising and/or hemorrhage INTEGUMENT: denies rashes PSYCHIATRIC: denies suicidal or homicidal ideation Vital Signs Vital Signs Vital Signs: 06/20/23 10:08 06/20/23 10:55 Temperature 98.4 F Temperature Source Oral Pulse Rate 72 65 Respiratory Rate 18 16 Blood Pressure 105/42 L 100/42 L Blood Pressure Mean 63 61 Pulse Ox 95 100 Oxygen Delivery Method Nasal Cannula Nasal Cannula Oxygen Flow Rate (L/min) 3 3 Weight Weight: 83.7 kg Body Mass Index (BMI) 30.7 Physical Exam Narrative GENERAL: Pale looking HEENT: Atraumatic; normocephalic EYES; Anicteric, PERRL of the conjunctiva NECK; supple, normal thyroid, RESPIRATORY: Diminished to auscultation CARDIOVASCULAR: Regular S1 S2, GI: soft, normoactive bowel sounds, : No Renal angle tenderness; EXTREMITIES: No edema, no clubbing, MUSCULOSKELETAL: no muscle wasting NEURO: Awake; no lateralizing signs. SKIN: No Rash PSYCH; Flat affect Results Lab / Micro Data 06/20/23 10:25 06/20/23 10:25 Labs: Laboratory Results - last 24 hr 06/20/23 10:25: WBC 15.5 H, RBC 1.55 L, Hgb 4.6 L*, Hct 15.3 L, MCV 98.7 D, MCH29.7, MCHC 30.1 L, RDW Std Deviation 52.9 H, RDW Coeff of Laly 15.5 H, Plt Count 459 H, MPV 10.0, Immature Gran % (Auto) 0.800, Neut % (Auto) 71.4 H, Lymph % (Auto) 17.6 L, Robertson % (Auto) 7.9, Eos % (Auto) 1.8, Baso % (Auto) 0.5, Absolute Neuts (auto) 11.1 H, Absolute Lymphs (auto) 2.72, Nucleated RBC % 0, Sodium 140,Potassium 3.4 L, Chloride 103, Carbon Dioxide 32.0, Anion Gap 5, BUN 31 H, Creatinine 0.58, Estim Creat Clear Calc 49.12, Est GFR (MDRD) Af Amer 132, Est GFR (MDRD) Non-Af 109, BUN/Creatinine Ratio 53.0 H, Glucose 114 H, Lactic Acid 2.2 H*, Calcium 7.6 L, Total Bilirubin 0.30, AST 13 L, ALT 12 L, Alkaline Phosphatase 54, Troponin I High Sens 8, Total Protein 5.0 L, Albumin 2.0 L, Globulin 3.0, Albumin/Globulin Ratio 0.7 L [facility] Radiology Impression Chest X-Ray 06/20/23 10:46 IMPRESSION: Pleural parenchymal changes at the right lung base although the pleural effusion has improved as compared to prior study. Persistent bibasilar atelectasis and/or infiltrate persists. Electronically Signed: Michael Gaxiola MD at 11:07 EST , Assessment & Plan Assessment/Plan (1) Anemia requiring transfusions: (2) Bleeding ulcer: PLAN: Plan Patient is a 68-year-old lady admitted with severe symptomatic anemia 1. Severe symptomatic anemia ? Secondary to acute on chronic blood loss anemia from upper GI bleed. EGD from06/09/2023 demonstrated erosive esophagitis hiatal hernia and duodenal ulcer with visible vessel that was cauterized. Patient admitted to the intensive careunit after patient was started on crossmatch and an order given for patient to be transfused with 2 unit PRBC 2. Upper GI bleed ?EGD on 06/09/2023 demonstrated erosive esophagitis hiatal hernia and duodenal ulcer with visible vessel that was cauterized. Patient presented with melenic stools as well as significant anemia. Started on Protonix drip after patient did receive bolus. Consult placed to Dr. Antunez with GI. Patient kept n.p.o. for possible repeat endoscopic evaluation 3. Chronic hypoxic and hypercapnic respiratory failure secondary to COPD ? Patient is on 3 L of oxygen at home 4. COPD ? With recent exacerbation requiring hospitalization 5. Recent admission for sepsis secondary to right lower lobe pneumonia with parapneumonic effusion ? Patient underwent thoracocentesis cultures had remained negative to date at the time of discharge and still remains negative to date 6. Paroxysmal A-fib ? Patient had rapid ventricular response during her previous admission. Patientwas placed on Eliquis which had to be discontinued due to GI bleed remains on beta-blockers 7. Anxiety disorder ? Patient is on BuSpar 8. DVT prophylaxis ? Bilateral SCDs for now Time spent in the patient's overall evaluation,decision-making process, review of diagnostic data, adjustment of management, discussion with other providers, nursing nursing and ancillary staff involved in patient's care documentation, 75 Minutes Advance planning; did discuss with the patient and regarding advanced directives as well as CODE STATUS. Did explain the various scenarios involved (FULL CODE, DNR CCA, DNR CCA with no intubation, and DNR CC and what each meant) patient elected full code with CPR and intubation if needed. Order was placed. Time spent on discussion 18 minutes. Charges/Coding Visit Charges Inpatient E&M: 93978 Init Hosp L3 Procedures Hospitalists Procedures: 57073 Advncd Care Plan 30 Min 06/20/23 1226 <Electronically signed by Edis Mayo MD> Cosigner Signature (if applicable): CC: Dr. Edis Mayo MD; Dr. Julio Draper MD~ Signed [facility] Work Phone: 1(941) 881-320512-18-2023 Discharge summary Author Guido [facility] June 20, 2023 11:25am Note Date/Time June 20, 2023 10:22am [facility] Medical Records Department [address] [place] [address] Emergency Department Summary 06/20/23 MR#: [id number] Acct: [id number] Name: SNEHA CARDENAS Rep #:[id number] : 1955 68 From: Guido Oliveira MD PCP: Dr. Julio Draper MD Status:R EG ER Location: ED HPI History of Present Illness Chief Complaint: Alt LOC Narrative Narrative: 68-year-old female, past medical history of COPD, was recently released from [facility]. She states that initially, she had coming to the hospital and has been here for quite some time. She was released on of last week, 5 days ago. She relates history that she developed atrial fibrillation, and then had GI bleeding that required cauterization. She is still having black stool. Her states that she had 2 syncopal episodes today. She has not been eating as well, and he was told that she needs to get up and walk around if she is to get better. He states he got her up and she took a few steps and passed out. Her syncopal episode was for approximately 30 seconds. He called 911. Reported on their arrival, she had another syncopal episode and tensed up for 5 to 10 seconds. There was no loss of bowel or bladder or postictal state. Shepresents because of generalized weakness and these reported 2 syncopal episodes. She denies any pain but states she might feel generally weak. [facility] Medical History Anxiety Asthma Benign essential hypertension Benign essential tremor COPD (chronic obstructive pulmonary disease) Former tobacco use Lung nodules Migraines On home oxygen therapy Pneumonia due to COVID-19 virus Home Medications albuterol sulfate 90 mcg/actuation aerosol inhaler (Ventolin HFA) 2 puff inhalation Q4H PRN PRN Shortness Of Breath 08/28/15 [History Last Taken 11/30/22 10:00] montelukast 10 mg tablet 10 mg PO QHS ALLERGIES 02/25/18 [History Last Taken 11/29/22] fluticasone fur. 100 mcg-umeclid 62.5 mcg-vilant 25 mcg inhalat.powder (Trelegy Ellipta) 1 inh inhalation DAILY COPD 05/01/21 [History Last Taken 11/30/22] fluticasone propionate 50 mcg/actuation nasal spray,suspension 2 spray intranasal QHS ALLERGIES 05/01/21 [History Last Taken 11/28/22] buspirone 5 mg tablet 10 mg (2 x 5 mg) PO BID 30 days #120 tabs 06/16/23 [Rx Last Taken Unknown] metoprolol tartrate 25 mg tablet 25 mg PO BID 30 days #60 tabs 06/16/23 [Rx Last Taken Unknown] pantoprazole 40 mg tablet,delayed release (Protonix) 40 mg PO BID 30 days #60 tabs 06/16/23 [Rx Last Taken Unknown] prednisone 10 mg tablet 30 mg (3 x 10 mg) PO DAILY 3 days #9 tabs 06/16/23 [Rx Last Taken Unknown] prednisone 20 mg tablet 20 mg PO DAILY 3 days #3 tabs 06/16/23 [Rx Last Taken Unknown] prednisone 20 mg tablet 40 mg (2 x 20 mg) PO DAILY 3 days #6 tabs 06/16/23 [Rx Last Taken Unknown] sucralfate 1 gram tablet 1 g PO 0700,1100,1600 30 days #90 tabs 06/16/23 [Rx Last Taken Unknown] Allergy/AdvReac Type Severity Reaction Status Date / Time cephalexin monohydrate Allergy Chest Verified 06/20/23 10:07 [From Keflex] tightness Surgical History H/O bilateral salpingectomy History of herniorrhaphy Hx of cholecystectomy Hx of tonsillectomy Social History adopted: Yes household members: family housing: house Smoking Status: Former smoker alcohol intake: never substance use type: does not use ROS ROS ED ROS Narrative Constitutional: No fever, no chills. Lysed weakness. HEENT: No sore throat. No neck pain. No loss of vision. No rhinorrhea. Cardiovascular: No chest pain. No palpitations. No pedal edema. 2 episodes ofsyncope. Respiratory: No cough, if, increasing shortness of breath. Abdominal: No abdominal pain. No nausea. No vomiting. Still having black stool. Genitourinary: No dysuria. No hematuria. Musculoskeletal: No myalgias. No arthralgias. Neurologic: No headaches. No dizziness. No lightheadedness. Skin: No rash. No change in color. Psychiatric: No depression. No anxiety. EXAM Physical Exam Narrative Exam Narrative: Afebrile. Vital signs noted. HEENT: Normocephalic. Atraumatic. PERRL, EOMI. Neck soft and supple. No pointtenderness or step off. Cardiovascular: Regular rate and rhythm. No murmurs, rubs, or gallops appreciated. Respiratory: No tachypnea. Lungs clear to auscultation bilaterally. Gastrointestinal: Abdomen soft, nontender, with normoactive bowel sounds. No rebound or guarding. Neurological: Awake. Alert. Nonfocal, nonlateralizing. Skin: No rash. Normal color. Positive pallor. Musculoskeletal: No pedal edema. Full range of motion extremities. Const Vital Signs: 06/20/23 10:08 06/20/23 10:55 Temperature 98.4 F Temperature Source Oral Pulse Rate 72 65 Respiratory Rate 18 16 Blood Pressure 105/42 L 100/42 L Blood Pressure Mean 63 61 Pulse Ox 95 100 Oxygen Delivery Method Nasal Cannula Nasal Cannula Oxygen Flow Rate (L/min) 3 3 MDM MDM MDM Narrative Medical decision making narrative: I reviewed the EMS report, and she was hypotensive at 85 systolic. Her syncopalepisodes may have been from volume depletion. Currently, her blood pressure is 105/42. She is very pallor. She may have generalized weakness and syncope secondary to anemia. She complains more of shortness of breath than anything else, she has had this for the last few days. Low suspicion for new onset seizure as there was no postictal state and there was no tonic-clonic activity. She may also be dehydrated given her transient hypotension. She will be bolusedIV fluids. Her states that yesterday she complained of dysuria and burning with urination. I will obtain a lactic acid and urinalysis to help ruleout sepsis, but currently she is not meeting any SIRS criteria as she is not tachycardic, and afebrile. I reviewed her prior records, and her gastroenterology report from 10 June, approximately 10 days ago. She did have a bleeding ulcer at that time which wascauterized and epinephrine injected. I reviewed her laboratory work from today and she has an elevated white count of 15.5 which I think is nonspecific, of significance is her hemoglobin which is low at 4.6. The prior was just above 7. Platelet count is elevated at 459. She is slightly hypokalemic with a potassium of 3.4, BUN of 31 with creatinine 0.58 consistent with upper GI bleeding. Lactic acid is slightly elevated at 2.2 which may also be from dehydration. She is not hypotensive currently. Given her profound anemia, she was typed and crossmatched for 4 units of packed red blood cells. Transfusion will be given in the emergency department. I discussed patient with Dr. Antunez who is familiar with the patient, and made him aware of the need for her admission. I will discuss patient with the hospitalist. Disposition is admit in guarded condition. History & Record Review Discussion w/independent historian: Patient and Family Additional record(s) reviewed:: Prior inpatient record, Prior ED visit and Priorlabs Lab Data Attestation: I reviewed the patient's lab results. Labs: Laboratory Results - last 24 hr 06/20/23 10:25 WBC 15.5 H RBC 1.55 L Hgb 4.6 L* Hct 15.3 L MCV 98.7 D MCH 29.7 MCHC 30.1 L RDW Std Deviation 52.9 H RDW Coeff of Laly 15.5 H Plt Count 459 H MPV 10.0 Immature Gran % (Auto) 0.800 Neut % (Auto) 71.4 H Lymph % (Auto) 17.6 L Robertson % (Auto) 7.9 Eos % (Auto) 1.8 Baso % (Auto) 0.5 Absolute Neuts (auto) 11.1 H Absolute Lymphs (auto) 2.72 Nucleated RBC % 0 Sodium 140 Potassium 3.4 L Chloride 103 Carbon Dioxide 32.0 Anion Gap 5 BUN 31 H Creatinine 0.58 Estim Creat Clear Calc 49.12 Est GFR (MDRD) Af Amer 132 Est GFR (MDRD) Non-Af 109 BUN/Creatinine Ratio 53.0 H Glucose 114 H Lactic Acid 2.2 H* Calcium 7.6 L Total Bilirubin 0.30 AST 13 L ALT 12 L Alkaline Phosphatase 54 Troponin I High Sens 8 Total Protein 5.0 L Albumin 2.0 L Globulin 3.0 Albumin/Globulin Ratio 0.7 L Radiography Diagnostic Testing: Clinical Impression(s) from Imaging Studies Chest X-Ray 06/20/23 10:46 IMPRESSION: Pleural parenchymal changes at the right lung base although the pleural effusion has improved as compared to prior study. Persistent bibasilar atelectasis and/or infiltrate persists. Electronically Signed: Michael Gaxiola MD at 11:07 EST , Management Discussion w/another healthcare provider: Hospitalist (Dr. Edis Mayo) and Health Education Teacher (Dr. Antunez, gastroenterology) Critical Care Time Critical Care Time: Yes Critical care time (excluding procedures): 30-74 minutes (32 minutes), Includingtime spent:, Discussing w/Patient &/or Family/Rat Breeder, Discussing w/Consultants, Arranging Admission or Transfer and Performing Direct Patient Care at Bedside Discharge Plan Dx/Rx/DC Orders Clinical Impression: Anemia requiring transfusions, Bleeding ulcer, Syncope Disposition Disposition: Acute Care Hospital [facility] What to do if you have Problems For any increased pain, shortness of breath, bleeding, nausea or vomiting, chestpain, or any unexpected problems, contact your Primary Care Provider. Call [facility] ([phone]) or report to the closest Emergency Room. Call 911 if necessary. 06/20/23 1125 <Electronically signed by Guido Oliveira MD> Cosigner Signature (if applicable): CC: Dr. Julio Draper MD ~ Signed [facility] Work Phone: 1(444) 422-193212-15-2023 Miscellaneous Notes* Telephone Encounter - Mere Soria MA - 06/17/2023 4:14 PM EST Unable to reach [facility] nurse. Left message on identified VM. Mere Soria MA * Telephone Encounter - Julio Draper MD - 06/17/2023 4:11 PM EST Okay. * Telephone Encounter - Genna Lowry RN - 06/17/2023 3:22 PM EST Nathaly calling from [facility] to report plan of care for patient and group home will visit patient2 times a week for 1 week starting next week and 1 time a week for 2 weeks. Nathaly also noted that while patient was in hospital patient was started on metoprolol, sucralfate, and Protonix. Patient has hospital follow up visit with provider on 06/23/2023. Please review and Advise, Genna Lowry RN [facility] Miscellaneous Notes* Telephone Encounter - Mere Soria MA - 06/16/2023 3:58 PM EST [facility] nurse notified. Mere Soria MA * Telephone Encounter - Julio Draper MD - 06/16/2023 3:56 PM EST I'll follow. * Telephone Encounter - Danika Peterson RN - 06/16/2023 2:13 PM EST Bindu - [facility] HH- reports patient is discharging from [facility] today (dx: acute & chronic respiratory failure), with orders for [facility] SN, PT, OT. Start of care is tomorrow. Asking if pcp agreeable to follow for orders. Please phone Bindu with verbal: [phone] [facility]12[facility]23 Discharge summary Author [facility]el [facility] June 16, 2023 12:21pm Note Date/Time June 16, 2023 12:14pm [facility] Medical Records Department [address] [place] [id number] Instructions for Home/Discharge Instructions 06/16/23 1213 MR#: [id number] Acct: [id number] Name: SNEHA CARDENAS Rep #:[id number] : 1955 68 From: Robel fuentes DO PCP: Dr. Julio Draper MD Status:A DM IN Discharge Instructions Diet Discharge Diet: No restrictions Activity Discharge Activity: No Restrictions Weight Bearing Status: Full weight bearing Follow Up Care Please Follow Up With: Julio Draper MD When: As needed Test Results: Test results from this visit will be discussed in further detail at your follow- up appointment, if applicable. Pending Tests Upon Discharge: None Discharge Plan Admission Admit Date/Time: 06/02/23 11:01 Attending Provider: Robel Funk Primary Care Provider: Julio Draper Consulting Providers: Gabby Sutherland; Td Pillai Instructions Patient Instructions: JAYCE RN Thoracentesis Dc Additional Instructions / Restrictions: Please complete your steroid taper as follows: ? Prednisone 40 mg for 3 days, followed by 30 mg for 3 days, followed by 20 mg for 3 days, then off steroids. Take your new medications as listed below. Follow-up with your pulmonology doctor in the office soon. Follow-up with your primary care doctor as needed. Discharge Orders/Prescriptions Prescriptions: New buspirone 5 mg Tablet 10 mg PO BID 30 Days Qty: 120 0RF sucralfate 1 gram Tablet 1 g PO 0700,1100,1600 30 Days Qty: 90 0RF metoprolol tartrate 25 mg Tablet 25 mg PO BID 30 Days Qty: 60 0RF prednisone 20 mg tablet 40 mg PO DAILY 3 Days Qty: 6 0RF prednisone 10 mg tablet 30 mg PO DAILY 3 Days Qty: 9 0RF prednisone 20 mg tablet 20 mg PO DAILY 3 Days Qty: 3 0RF pantoprazole [Protonix] 40 mg tablet,delayed release (DR/EC) 40 mg PO BID 30 Days Qty: 60 0RF Continued albuterol sulfate [Ventolin HFA] 1 INHALER inhaler 2 puff inhalation Q4H PRN PRN (Reason: Shortness Of Breath) Patient Comments: shortness of breath montelukast 10 MG tablet 10 mg PO QHS fluticasone propionate 50 mcg/actuation spray,suspension 2 spray INTRANASAL QHS Patient Comments: Use 1 [place] in each nostril once daily. Trelegy Ellipta 100-62.5-25 mcg blister with device 1 inh INHALATION DAILY Patient Comments: Inhale 1 Puff as instructed once daily. Discontinued levofloxacin 750 mg tablet 750 mg PO DAILY Qty: 7 0RF prednisone 20 mg tablet 40 mg PO DAILY 7 Days Qty: 14 0RF oxycodone-acetaminophen [Percocet] 5-325 mg tablet 1 tab PO Q6H PRN (Reason: pain) 4 Days Qty: 14 0RF Referrals / Follow Up: Julio Draper MD [Primary Care Provider] - Disposition Disposition (needs filled in before D/C Order can be placed): Home Health Service 06/16/23 1221<Electronically signed by Robel Funk DO>Robel Funk DO CC: Dr. Td Pillai DO; Dr. Gabby Sutherland MD; Dr. Julio Draper MD ~ Signed [facility] Work Phone: 1(245) 119-496612-13-2023 Progress note Author [facility] June 15, 2023 5:24pm Note Date/Time June 15, 2023 5:24pm [facility] Medical Records Department [address] [place] [address] Progress Note - Hospitalist 06/15/237 MR#: [id number] Acct: [id number] Name: SNEHA CARDENAS Rep #:[id number] : 1955 68 From: Robel fuentes DO PCP: Dr. Julio Draper MD Status:A DM IN Location: [place] [address]- Reason for Visit Reason for Visit: Diagnoses Pneumonia, unspecified organism (06/02/23) Chronic obstructive pulmonary disease with (acute) exacerbation (06/02/23) Pleural effusion, not elsewhere classified (06/02/23) Pleural effusion in other conditions classified elsewhere (06/02/23) Gastrointestinal hemorrhage, unspecified (06/02/23) Subjective Subjective Patient seen at bedside this morning. Was sitting comfortably in bedside chair,conversing normally, in no acute distress. Patient states she continues to feelwell this morning, similar to yesterday. Had no fevers or chills overnight. Feels her strength is improving, would like to go home with home health care on discharge. Hoping to go home soon. No other acute concerns this morning. Objective Data Objective Data Vital Signs: Vital Signs Temp Pulse Resp BP Pulse Ox O2 Del Method O2 Flow Rate 99.1 F 79 16 103/44 L 98 Nasal Cannula 3 06/15/23 13:09 06/15/23 15:18 06/15/23 15:18 06/15/23 13:09 06/15/23 13:09 06/15/23 16:20 06/15/23 16:20 FiO2 45 06/09/23 23:00 Oxygen Flow Rate (L/min) 3 Oxygen Delivery Method Nasal Cannula Weight: 69 kg Body Mass Index (BMI) 25.9 Intake & Output: Intake and Output for Last 24 Hours 06/13/23 06/14/23 06/15/23 23:59 23:59 23:59 Intake Total 768 / 768 1020 / 1020 550 / 550 Output Total 1025 / 1175 1575 / 1575 525 / 525 Balance -257 / -407 -555 / -555 Lab / Micro Data 06/15/23 10:25 06/11/23 06:40 Labs: Laboratory Results - last 24 hr 06/15/23 07:15: WBC 13.5 H, RBC 2.25 L, Hgb 6.4 L, Hct 21.0 L, MCV 93.3, MCH 28.4, MCHC 30.5 L, RDW Std Deviation 45.6 H, RDW Coeff of Laly 13.7, Plt Count 605 H, MPV 10.4, Immature Gran % (Auto) 1.100 H, Neut % (Auto) 68.7, Lymph % (Auto) 15.6 L, Robertson % (Auto) 10.7 H, Eos % (Auto) 3.8, Baso % (Auto) 0.1, Absolute Neuts (auto) 9.2 H, Absolute Lymphs (auto) 2.10, Nucleated RBC % 0 06/15/23 10:25: WBC 15.6 H, RBC 2.32 L, Hgb 6.7 L, Hct 21.6 L, MCV 93.1, MCH 28.9, MCHC 31.0 L, RDW Std Deviation 44.6 H, RDW Coeff of Laly 13.6, Plt Count 670 H, MPV 10.0, Blood Type O NEGATIVE, Antibody Screen NEGATIVE, Crossmatch SeeDetail Micro: Microbiology 06/13/23 13:44 Fluid - Pleural (Lung) Gram Stain - Final 06/13/23 13:44 Fluid - Pleural (Lung) Body Fluid Culture - Preliminary No growth-Final to follow 06/07/23 Unknown Fluid - Pleural (Lung) Gram Stain - Final 06/07/23 Unknown Fluid - Pleural (Lung) Body Fluid Culture - Final Culture exhibits no growth. 06/07/23 Unknown Fluid - Pleural (Lung) Anaerobic Culture - Final No growth in 5 days. 06/08/23 10:15 Stool Stool Occult Blood (ROSAURA) - Final Occult Blood Positive 06/02/23 10:47 Blood Culture (Wb) - Right Hand Blood Culture - Final No growth in 5 days. 06/02/23 09:26 Blood Culture (Wb) - Left Hand Blood Culture - Final No growth in 5 days. 06/02/23 10:34 Urine, Catheterized Urine Culture - Final Culture exhibits no growth. 06/03/23 09:15 Mucosa - Nose Coronavirus COVID-19 PCR - Final 06/02/23 10:34 Urine, Random Legionella Antigen - Final 06/02/23 10:34 Urine, Random Streptococcus pneumoniae Antigen (M - Final 06/02/23 11:22 Mucosa - Nasopharyngeal Respiratory Panel (PCR) - Final Rhythm Strip Rhythm Strip: Sinus Rhythm Rate: 70 Ectopy: None Physical Exam Const alert, oriented x3 and no apparent distress Constitutional Narrative: Elderly female, chronically ill-appearing, sitting comfortably in bedside chair. No conversational dyspnea today. General Appearance: cooperative HEENT normocephalic, head/scalp atraumatic, hearing grossly normal bilaterally, nasal mucous membranes and turbinates normal and moist oral mucous membranes Eyes PERRL, EOMs intact bilaterally and conjunctivae normal Neck full ROM, no lymphadenopathy and supple Lymph Lymphatic: no lymphadenopathy noted Chest inspection of chest normal Resp Resp Narrative: Decreased breath sounds bilaterally, similar to previous. No wheezing noted. No increased work of breathing noted at rest. Cardio regular rate, regular rhythm, no murmurs and peripheral pulses 2+ throughout GI normal to inspection, nondistended, normoactive bowel sounds, soft to palpation,non-tender and non-distended Back/Spine normal ROM Extremity normal to inspection, full ROM and no pedal edema Skin no rashes or lesions noted Neuro moves all extremities and no focal motor deficits Speech: speech normal Psych affect normal Assessment & Plan Assessment/Plan (1) Parapneumonic effusion: (2) Acute exacerbation of chronic obstructive pulmonary disease (COPD): PLAN: Plan Patient is a 68-year-old female who presented to [facility] ED on 06/02/2023 with worsening shortness of breath. 1. Acute on chronic combined respiratory failure secondary to COPD with exacerbation, improving Requires 3 L nasal cannula at baseline, follows with [facility] pulmonology. Suspectedexacerbation secondary to right lower lobe pneumonia. Patient required ICU management for several days during admission. Completed 10-day course of IV antibiotics on 06/13. S/p thoracentesis on 06/13 with only 70 cc fluid removed as noted below, cultures and Gram stain negative. ? Pulmonology followed. Continue prednisone with taper, planning for 8 to 10-day taper on discharge. Patient is back to home 3 L nasal cannula and satting well at rest. Hopeful for discharge home tomorrow with home health care. 2. Sepsis secondary to right lower lobe community-acquired pneumonia with parapneumonic effusion, resolved Patient presented with sepsis suspected due to right lower lobe pneumonia with related organ dysfunction as evidenced by need for NIPPV support. Appropriate hemodynamic response after fluid resuscitation. Previous cultures from pleural fluid negative. Antigen testing and viral panels negative. ? S/p thoracentesis on 06/13 with only 70 cc fluid removed as noted above, studies negative to this point. Completed antibiotics as noted above. Monitor. 3. Acute blood loss anemia secondary to acute upper GI bleed Had 2 g hemoglobin drop on 06/08, suspected due to GI bleed. S/p EGD that showedgrade a erosive esophagitis, hiatal hernia and duodenal ulcer with visible vessel that was cauterized. Patient has had no recurrence of bleeding since then. However, patient's hemoglobin decreased from 8.3 to 6.4 on 06/15. Repeathemoglobin 6.7 on confirmatory testing. Patient did have drop of all cell lineswith these lab draws, suspect that is the primary etiology of the worsened anemia. No evidence of bleeding at this time. ? S/p 1 unit packed red blood cells given on 06/15, repeat hemoglobin pending. Will follow-up hemoglobin tomorrow morning as well. If hemoglobin responds welland patient remained stable, will likely be okay for discharge home tomorrow, will need repeat CBC shortly after discharge to confirm continued stability. Continue p.o. PPI twice daily. 4. Episode of atrial fibrillation with RVR, resolved Patient had episode of A-fib with RVR on 06/03, resolved by 06/04 with IV beta- vincenzo therapy. Echo on 06/03 showed EF 65%, stage I diastolic dysfunction, no other abnormalities. Patient was placed on Eliquis for prophylaxis, but unfortunately had GI bleed as noted above. ? Given that this was an apparent transient episode of A-fib, will hold on Eliquis going home. Will plan to send home with event monitor. Continue Lopressor 25 mg twice daily. 5. Urinary retention ? Castelan catheter placed in the ICU due to concern for urinary retention at that time. Patient had no previous history of urinary retention. Castelan catheter removed for void trial on 06/15. Monitor bladder scans every 8 hours for now. Hopeful for discharge home without Castelan catheter tomorrow. 6. Debility ? Secondary to prolonged hospitalization and degree of chronic debility at baseline. PT/OT/case management following. Patient has shown fairly good improvement over the past 1 to 2 days. Planning for home with home health care on discharge. Chronic medical conditions: ? Anxiety: Continue home BuSpar. DVT prophylaxis: SCDs CODE STATUS: Full code, verified Expected disposition: Home with home health care, tomorrow Total clinical time spent by myself addressing the patient's medical issues, reviewing all the data, and collaborating with patient's care team: 35 minutes. Charges/Coding Visit Charges Inpatient E&M: 30387 Subs Hosp L2 06/15/23 1724 <Electronically signed by Robel Funk DO> Cosigner Signature (if applicable): CC: ~ Signed [facility] Work Phone: 1(296) 647-374612-12-2023 Progress note Author Robel [facility] June 14, 2023 5:59pm Note Date/Time June 14, 2023 5:54pm [facility] Medical Records Department [address] [place] [address] Progress Note - Hospitalist 06/14/23 1746 MR#: [id number] Acct: [id number] Name: SNEHA CARDENAS Reji Rep #:[id number] : 1955 68 From: Robel fuentes DO PCP: Dr. Julio Draper MD Status:A DM IN Location: [place] [address] Reason for Visit Reason for Visit: Diagnoses Pneumonia, unspecified organism (06/02/23) Chronic obstructive pulmonary disease with (acute) exacerbation (06/02/23) Pleural effusion, not elsewhere classified (06/02/23) Pleural effusion in other conditions classified elsewhere (06/02/23) Gastrointestinal hemorrhage, unspecified (06/02/23) Subjective Subjective Patient seen at bedside this morning. States she feels improved this morning compared to yesterday. Had no acute events overnight. Patient tolerated the MBSS fine yesterday, has been eating her modified diet this morning without issue. States her breathing is improved this morning at rest. She has however not tried to get up or move around much since yesterday. She denies any fevers or chills. Patient states she has good help at home, [facility] on [facility]. No otheracute concerns this morning. Objective Data Objective Data Vital Signs: Vital Signs Temp Pulse Resp BP Pulse Ox O2 Del Method O2 Flow Rate 98.3 F 75 18 122/54 H 93 Nasal Cannula 3 06/14/23 15:20 06/14/23 15:20 06/14/23 15:20 06/14/23 15:20 06/14/23 15:20 06/14/23 15:20 06/14/23 15:20 FiO2 45 06/09/23 23:00 Oxygen Flow Rate (L/min) 3 Oxygen Delivery Method Nasal Cannula Weight: 68.991 kg Body Mass Index (BMI) 25.9 Intake & Output: Intake and Output for Last 24 Hours 06/12/23 06/13/23 06/14/23 23:59 23:59 23:59 Intake Total 895.25 / 895.25 768 / 768 910 / 910 Output Total 1400 / 1400 1025 / 1175 1300 / 1300 Balance -504.75 / -504.75 -257 / -407 -390 / -390 Lab / Micro Data 06/13/23 06:15 06/11/23 06:40 Labs: Laboratory Results - last 24 hr 06/12/23 06:27: Diff Path Review Reviewed 06/13/23 06:15: Diff Path Review Reviewed Micro: Microbiology 06/13/23 13:44 Fluid - Pleural (Lung) Gram Stain - Final 06/13/23 13:44 Fluid - Pleural (Lung) Body Fluid Culture - Preliminary No growth-Final to follow 06/07/23 Unknown Fluid - Pleural (Lung) Gram Stain - Final 06/07/23 Unknown Fluid - Pleural (Lung) Body Fluid Culture - Final Culture exhibits no growth. 06/07/23 Unknown Fluid - Pleural (Lung) Anaerobic Culture - Final No growth in 5 days. 06/08/23 10:15 Stool Stool Occult Blood (ROSAURA) - Final Occult Blood Positive 06/02/23 10:47 Blood Culture (Wb) - Right Hand Blood Culture - Final No growth in 5 days. 06/02/23 09:26 Blood Culture (Wb) - Left Hand Blood Culture - Final No growth in 5 days. 06/02/23 10:34 Urine, Catheterized Urine Culture - Final Culture exhibits no growth. 06/03/23 09:15 Mucosa - Nose Coronavirus COVID-19 PCR - Final 06/02/23 10:34 Urine, Random Legionella Antigen - Final 06/02/23 10:34 Urine, Random Streptococcus pneumoniae Antigen (M - Final 06/02/23 11:22 Mucosa - Nasopharyngeal Respiratory Panel (PCR) - Final Radiography Diagnostic Testing: Radiology Impression Chest X-Ray 06/13/23 13:30 IMPRESSION: Status post right thoracentesis. There is no evidence of pneumothorax. Electronically Signed: Michael Gaxiola MD at 13:44 EST Reading Location ID and State: [facility] / [place] , Service support , Rhythm Strip Rhythm Strip: Sinus Rhythm Rate: 70 Ectopy: None Physical Exam Const alert, oriented x3 and no apparent distress Constitutional Narrative: Elderly female, chronically ill-appearing, sitting comfortably in bedside chair. No conversational dyspnea today. General Appearance: cooperative HEENT normocephalic, head/scalp atraumatic, hearing grossly normal bilaterally, nasal mucous membranes and turbinates normal and moist oral mucous membranes Eyes PERRL, EOMs intact bilaterally and conjunctivae normal Neck full ROM, no lymphadenopathy and supple Lymph Lymphatic: no lymphadenopathy noted Chest inspection of chest normal Resp Resp Narrative: Decreased breath sounds bilaterally, similar to previous. No wheezing noted. No increased work of breathing noted at rest. Cardio regular rate, regular rhythm, no murmurs and peripheral pulses 2+ throughout GI normal to inspection, nondistended, normoactive bowel sounds, soft to palpation,non-tender and non-distended Back/Spine normal ROM Extremity normal to inspection, full ROM and no pedal edema Skin no rashes or lesions noted Neuro moves all extremities and no focal motor deficits Speech: speech normal Psych affect normal Assessment & Plan Assessment/Plan (1) Parapneumonic effusion: (2) Acute exacerbation of chronic obstructive pulmonary disease (COPD): PLAN: Plan Patient is a 68-year-old female who presented to [facility] ED on 06/02/2023 with worsening shortness of breath. 1. Acute on chronic combined respiratory failure secondary to COPD with exacerbation, improving Requires 3 L nasal cannula at baseline, follows with [facility]monology. Suspectedexacerbation secondary to right lower lobe pneumonia. ? Pulmonology following. Completed 10-day course of IV antibiotics on 06/13. S/p thoracentesis on 06/13 with only 70 cc fluid removed as noted below, cultures and Gram stain negative to date. Patient is back to baseline 3 L nasalcannula, satting well at rest. Hopeful for discharge home tomorrow on baseline 3 L with outpatient pulmonology follow-up as needed. 2. Sepsis secondary to right lower lobe community-acquired pneumonia with parapneumonic effusion, resolved Patient presented with sepsis suspected due to right lower lobe pneumonia with related organ dysfunction as evidenced by need for NIPPV support. Appropriate hemodynamic response after fluid resuscitation. Previous cultures from pleural fluid negative. Antigen testing and viral panels negative. ? S/p thoracentesis on 06/13 with only 70 cc fluid removed as noted above, studies negative to this point. Completed antibiotics as noted above. Monitor. 3. Acute blood loss anemia secondary to acute upper GI bleed, stable Had 2 g hemoglobin drop on 06/08, suspected due to GI bleed. S/p EGD that showedgrade a erosive esophagitis, hiatal hernia and duodenal ulcer with visible vessel that was cauterized. ? Hemoglobin remains stable, monitor daily CBC. Continue PPI twice daily. 4. Episode of atrial fibrillation with RVR, resolved Patient had episode of A-fib with RVR on 06/03, resolved by 06/04 with IV beta- vincenzo therapy. Echo on 06/03 showed EF 65%, stage I diastolic dysfunction, no other abnormalities. Patient was placed on Eliquis for prophylaxis, but unfortunately had GI bleed as noted above. ? Given that this was an apparent transient episode of A-fib, will hold on Eliquis going home. Will plan to send home with event monitor. Continue Lopressor 25 mg twice daily. Chronic medical conditions: ? Anxiety: Continue home BuSpar. DVT prophylaxis: SCDs CODE STATUS: Full code, verified Expected disposition: Home with home health care, tomorrow Total clinical time spent by myself addressing the patient's medical issues, reviewing all the data, and collaborating with patient's care team: 35 minutes. Charges/Coding Visit Charges Inpatient E&M: 42109 Subs Hosp L2 06/14/23 1759 <Electronically signed by Robel Funk DO> Cosigner Signature (if applicable): CC: ~ Signed [facility] Work Phone: [phone]) 107-309812-12-2023 [facility] Progress note Author Robel [facility] June 13, 2023 9:22pm Note Date/Time June 13, 2023 3:14pm [facility] Medical Records Department [address] [facility] [place] [address] Progress Note - Hospitalist 06/13/23 1514 MR#: [id number] Acct: [id number] Name: SNEHA CARDENAS Rep #:[id number] : 1955 68 From: Robel fuentes DO PCP: Dr. Julio Draper MD Status:A DM IN Location: [place] [address] Reason for Visit Reason for Visit: Diagnoses Pneumonia, unspecified organism (06/02/23) Chronic obstructive pulmonary disease with (acute) exacerbation (06/02/23) Pleural effusion, not elsewhere classified (06/02/23) Pleural effusion in other conditions classified elsewhere (06/02/23) Gastrointestinal hemorrhage, unspecified (06/02/23) Subjective Subjective Patient seen at bedside this morning. Sitting in bedside chair. Patient was onher home 4 L nasal cannula satting in the mid 90s, but she had noticeable dyspnea with exertion and reported increased work of breathing at baseline this morning. Patient denies any fevers or chills, chest pain. States that she is hoping that the right-sided thoracentesis today will be helpful for her. She has not gotten out of bed much and has felt very fatigued over the past few days. She otherwise denies any acute pain or discomfort. Objective Data Objective Data Vital Signs: Vital Signs Temp Pulse Resp BP Pulse Ox O2 Del Method O2 Flow Rate 98.5 F 69 16 132/68 H 99 Nasal Cannula 4 06/13/23 14:30 06/13/23 14:30 06/13/23 14:30 06/13/23 14:30 06/13/23 14:30 06/13/23 14:30 06/13/23 14:30 FiO2 45 06/09/23 23:00 Oxygen Flow Rate (L/min) 4 Oxygen Delivery Method Nasal Cannula Weight: 70.4 kg Body Mass Index (BMI) 26.6 Intake & Output: Intake and Output for Last 24 Hours 06/11/23 06/12/23 06/13/23 23:59 23:59 23:59 Intake Total 2004.75 / 2004.75 895.25 / 895.25 625 / 625 Output Total 2430 / 2980 1400 / 1400 775 / 775 Balance -425.25 / -975.25 -504.75 / -504.75 -150 / -150 Lab / Micro Data 06/13/23 06:15 06/11/23 06:40 Labs: Laboratory Results - last 24 hr 06/13/23 06:15: WBC 20.2 H, RBC 2.95 L, Hgb 8.3 L, Hct 27.1 L, MCV 91.9, MCH 28.1, MCHC 30.6 L, RDW Std Deviation 42.9, RDW Coeff of Laly 13.0, Plt Count 700 H, MPV 10.0, Immature Gran % (Auto) 2.100 H, Neut % (Auto) 72.5 H, Lymph % (Auto) 14.4 L, Robertson % (Auto) 8.3, Eos % (Auto) 2.4, Baso % (Auto) 0.3, Absolute Neuts (auto) 14.6 H, Absolute Lymphs (auto) 2.92, Nucleated RBC % 0, Diff Path Review November, Platelet Estimate [employer] Micro: Microbiology 06/07/23 Unknown Fluid - Pleural (Lung) Gram Stain - Final 06/07/23 Unknown Fluid - Pleural (Lung) Body Fluid Culture - Final Culture exhibits no growth. 06/07/23 Unknown Fluid - Pleural (Lung) Anaerobic Culture - Final No growth in 5 days. 06/08/23 10:15 Stool Stool Occult Blood (ROSAURA) - Final Occult Blood Positive 06/02/23 10:47 Blood Culture (Wb) - Right Hand Blood Culture - Final No growth in 5 days. 06/02/23 09:26 Blood Culture (Wb) - Left Hand Blood Culture - Final No growth in 5 days. 06/02/23 10:34 Urine, Catheterized Urine Culture - Final Culture exhibits no growth. 06/03/23 09:15 Mucosa - Nose Coronavirus COVID-19 PCR - Final 06/02/23 10:34 Urine, Random Legionella Antigen - Final 06/02/23 10:34 Urine, Random Streptococcus pneumoniae Antigen (M - Final 06/02/23 11:22 Mucosa - Nasopharyngeal Respiratory Panel (PCR) - Final Rhythm Strip Rhythm Strip: Sinus Rhythm Rate: 70 Ectopy: None Physical Exam Const alert, oriented x3 and no apparent distress Constitutional Narrative: Elderly female, chronically ill-appearing, sitting comfortably in bedside chair. Noticeable dyspnea with conversation, mild distress due to shortness of breath. General Appearance: cooperative HEENT normocephalic, head/scalp atraumatic, hearing grossly normal bilaterally, nasal mucous membranes and turbinates normal and moist oral mucous membranes Eyes PERRL, EOMs intact bilaterally and conjunctivae normal Neck full ROM, no lymphadenopathy and supple Lymph Lymphatic: no lymphadenopathy noted Chest inspection of chest normal Resp Resp Narrative: Decreased breath sounds bilaterally, worst at right lung base. No wheezing noted. Cardio regular rate, regular rhythm, no murmurs and peripheral pulses 2+ throughout GI normal to inspection, nondistended, normoactive bowel sounds, soft to palpation,non-tender and non-distended Back/Spine normal ROM Extremity normal to inspection, full ROM and no pedal edema Skin no rashes or lesions noted Neuro moves all extremities and no focal motor deficits Speech: speech normal Psych Mood & Affect: anxious Assessment & Plan Assessment/Plan (1) Parapneumonic effusion: (2) Acute exacerbation of chronic obstructive pulmonary disease (COPD): PLAN: Plan Patient is a 68-year-old female who presented to [facility] ED on 06/02/2023 with worsening shortness of breath. 1. Acute on chronic combined respiratory failure secondary to COPD with exacerbation Requires 3 L nasal cannula at baseline, follows with [facility] pulmonology. Suspectedexacerbation secondary to right lower lobe pneumonia. ? Pulmonology following. Completed 10-day course of IV antibiotics on 06/13. S/p thoracentesis with only 70 cc fluid removed as noted below. Continue to spot dose Lasix as needed. Follow-up cultures from thoracentesis. 2. Sepsis secondary to right lower lobe community-acquired pneumonia with parapneumonic effusion Patient presented with sepsis suspected due to right lower lobe pneumonia with related organ dysfunction as evidenced by need for NIPPV support. Appropriate hemodynamic response after fluid resuscitation. Previous cultures from pleural fluid negative. Antigen testing and viral panels negative. ? S/p thoracentesis on 06/13 with only 70 cc fluid removed. Per radiology, appears the patient could have some degree of loculation within the pleural space. Completed antibiotics as noted above. Appreciate pulmonology assistancefor further recommendations. 3. Acute blood loss anemia secondary to acute upper GI bleed, stable Had 2 g hemoglobin drop on 06/08, suspected due to GI bleed. S/p EGD that showedgrade a erosive esophagitis, hiatal hernia and duodenal ulcer with visible vessel that was cauterized. ? Hemoglobin remains stable, monitor daily CBC. Continue PPI twice daily. Appreciate further GI recommendations. Chronic medical conditions: ? Anxiety: Continue home BuSpar. DVT prophylaxis: SCDs CODE STATUS: Full code, verified Expected disposition: Home with home health care versus SNF, TBD Total clinical time spent by myself addressing the patient's medical issues, reviewing all the data, and collaborating with patient's care team: 35 minutes. Charges/Coding Visit Charges Inpatient E&M: 68580 Subs Hosp L2 06/13/232121 <Electronically signed by Robel Funk DO> Cosigner Signature (if applicable): CC: ~ Signed [facility] Work Phone: 1(442) 271-912212-11-2023 Procedure [facility] 06-12-2023 Progress note Author Td Pillai [facility] June 12, 2023 10:34am Note Date/Time June 12, 2023 10:34am [facility] Medical Records Department [address] [place] [address] Progress Note - Hospitalist 06/12/23 1032 MR#: [id number] Acct: [id number] Name: SNEHA CARDENAS Rep #:[id number] : 1955 68 From: Td Pillai DO PCP: Dr. Julio Draper MD Status:A DM IN Location: [place] [address] Reason for Visit Reason for Visit: Diagnoses Pneumonia, unspecified organism (06/02/23) Chronic obstructive pulmonary disease with (acute) exacerbation (06/02/23) Pleural effusion in other conditions classified elsewhere (06/02/23) Gastrointestinal hemorrhage, unspecified (06/02/23) Subjective Subjective Patient was seen and examined today, she does not complain of any fever, chills,shortness of breath. Objective Data Objective Data Vital Signs: Vital Signs Temp Pulse Resp BP Pulse Ox O2 Del Method O2 Flow Rate 98.0 F 67 14 137/64 H 98 Nasal Cannula 4 06/12/23 09:00 06/12/23 09:00 06/12/23 09:00 06/12/23 09:00 06/12/23 09:00 06/12/23 09:00 06/12/23 09:00 FiO2 45 06/09/23 23:00 Oxygen Flow Rate (L/min) 4 Oxygen Delivery Method Nasal Cannula Weight: 70.4 kg Body Mass Index (BMI) 26.6 Intake & Output: Intake and Output for Last 24 Hours 06/10/23 06/11/23 06/12/23 23:59 23:59 23:59 Intake Total 1810 / 1810 2004.75 / 2004.75 460.75 / 460.75 Output Total 1870 / 1870 2430 / 2980 950 / 950 Balance -60 / -60 -425.25 / -975.25 -489.25 / -489.25 Lab / Micro Data 06/12/23 06:27 06/11/23 06:40 Labs: Laboratory Results - last 24 hr 06/12/23 06:27: WBC 20.1 H, RBC 3.01 L, Hgb 8.8 L, Hct 27.3 L, MCV 90.7, MCH 29.2, MCHC 32.2, RDW Std Deviation 43.1, RDW Coeff of Laly 13.0, Plt Count 612 H, MPV 10.0, Immature Gran % (Auto) 2.700 H, Neut % (Auto) 65.7, Lymph % (Auto) 19.9, Robertson % (Auto) 8.6, Eos % (Auto) 2.9, Baso % (Auto) 0.2, Absolute Neuts (auto) 13.2 H, Absolute Lymphs (auto) 4.01, Nucleated RBC % 0, Diff Path Review May foll Micro: Microbiology 06/07/23 Unknown Fluid - Pleural (Lung) Gram Stain - Final 06/07/23 Unknown Fluid - Pleural (Lung) Body Fluid Culture - Final Culture exhibits no growth. 06/07/23 Unknown Fluid - Pleural (Lung) Anaerobic Culture - Preliminary No growth in 48 hours. 06/08/23 10:15 Stool Stool Occult Blood (ROSAURA) - Final Occult Blood Positive 06/02/23 10:47 Blood Culture (Wb) - Right Hand Blood Culture - Final No growth in 5 days. 06/02/23 09:26 Blood Culture (Wb) - Left Hand Blood Culture - Final No growth in 5 days. 06/02/23 10:34 Urine, Catheterized Urine Culture - Final Culture exhibits no growth. 06/03/23 09:15 Mucosa - Nose Coronavirus COVID-19 PCR - Final 06/02/23 10:34 Urine, Random Legionella Antigen - Final 06/02/23 10:34 Urine, Random Streptococcus pneumoniae Antigen (M - Final 06/02/23 11:22 Mucosa - Nasopharyngeal Respiratory Panel (PCR) - Final Radiography Diagnostic Testing: Radiology Impression Chest X-Ray 06/12/23 06:00 IMPRESSION: No significant interval change as compared to the prior study of 06/10/2023. Electronically Signed: Neo To MD at 6:51 EST , Rhythm Strip Rhythm Strip: Sinus Rhythm Rate: 70 Ectopy: None Physical Exam Narrative alert, oriented x3 and no apparent distress General Appearance: cooperative, well kempt and well developed Orientation / Consciousness: awake, oriented to person, oriented to place and oriented to time HEENT normocephalic and moist oral mucous membranes Eyes PERRL, EOMs intact bilaterally and conjunctivae normal Neck supple, no JVD, thyroid normal and no carotid bruits General: trachea midline Resp normal respiratory effort and clear to auscultation bilaterally Auscultation: Negative for rales, rhonchi or wheezes Cardio regular rate, regular rhythm, no murmurs, no rub and no gallops GI normal to inspection, nondistended, normoactive bowel sounds, soft to palpation,non-tender and non-distended Extremity Extremity Narrative: Patient has a right below the knee amputation Skin no rashes or lesions noted General Skin Exam: no breakdown Neuro oriented x3, CN's II-XII intact bilaterally, moves all extremities, no focal motor deficits and no sensory deficits noted Sensorium / Orientation: awake, alert, oriented to person, oriented to place andoriented to time Speech: speech normal Psych affect normal Assessment & Plan Assessment/Plan (1) Parapneumonic effusion: (2) Right lower lobe pneumonia: (3) GI bleed: QUALIFIERS: GI bleed type/associated pathology: unspecified gastrointestinal hemorrhage type Qualified Code(s): K92.2 - Gastrointestinal hemorrhage, unspecified (4) Community acquired pneumonia of right lower lobe of lung: PLAN: Plan 1. Sepsis secondary to right lower lobe community-acquired pneumonia-patient will continue on IV antibiotics, pulmonary medicine is participating in her care #2 acute on chronic combined respiratory failure secondary to chronic obstructive pulmonary disease and pneumonia-patient is currently on 4 L via nasal cannula, her home oxygen requirement appears to be 3 L/min, continue aerosol treatments, IV steroids and antibiotics #3 acute anemia secondary to acute upper GI bleed from duodenal ulcers and erosive esophagitis-patient remains on a PPI at this time, recheck labs tomorrow #4 chronic obstructive pulmonary disease-complicates care, medical course, recovery, and prognosis #5 right pleural effusion-patient will probably require repeat thoracentesis on Tuesday Total clinical time spent by myself addressing the patient's medical issues, reviewing all of her data, and collaborating with patient's care team: 25 minutes Charges/Coding Visit Charges Inpatient E&M: 93556 Subs Hosp L1 06/12/23 1034 <Electronically signed by Td Pillai DO> Cosigner Signature (if applicable): CC: ~ Signed [facility] Work Phone: 1(370) 570-379412-10-2023 Progress note Author Kapil Doyle [facility] June 12, 2023 9:51am Note Date/Time June 12, 2023 8:33am [facility] Medical Records Department [address] [place] [address] Progress Note - Linting Machine Operator 06/12/23 0830 MR#: [id number] Acct: [id number] Name: SNEHA CARDENAS Rep #:[id number] : 1955 68 From: Kapil Doyle MD PCP: Dr. Julio Draper MD Status:A DM IN Location: [place] [address]- 1 Assessment & Plan Assessment/Plan (1) COPD with acute exacerbation: PLAN: Plan RECOMMENDATIONS: 1. Continue nasal cannula oxygen. Wean FiO2 for saturations greater than 90%. 2. Continue scheduled BuSpar and bronchodilator therapy. 3. Continue scheduled antibiotics to complete a 10-day course. 4. Wean prednisone over the next 12 to 14 days 5. Repeat thoracentesis tomorrow, but likely can be discharged if no complications 6. Walking oximetry prior to discharge 7. Follow-up with primary (Dr. Nieves [facility]) in 2 to 4 weeks IMPRESSIONS: 1. Acute and chronic respiratory failure with hypoxemia and hypercapnia secondary to COPD with exacerbation The patient has a known history of COPD and chronic hypoxemic respiratory failure with a baseline 3 L/min oxygen requirement. She is followed regularly by Dr. Magali Nieves at [facility] pulmonary medicine. The patient appears to be in a state of exacerbation secondary to right lower lobe pneumonia complicated by parapneumonic effusion. Chest x-ray this morning does show some increase in effusion. She did have evidence of acute CO2 retention in the emergency department and was initiated on appropriate noninvasive positive pressure ventilatory support. Patient likely will require 10 days of antibiotics given parapneumonic effusion. Patient responded well to Lasix yesterday. Anticipate thoracentesis on Tuesday with chest culture, given additional labs are not needed. Patient could likely be discharged following drainage 2. Sepsis secondary to pneumonia with parapneumonic effusion The patient presented to the hospital with sepsis due to probable right lower lobe pneumonia with acute sepsis related organ dysfunction as evidenced byno need for noninvasive positive pressure ventilatory support. The patient has been fluid resuscitated with appropriate response hemodynamically. Cultures arenegative from the pleural fluid. Plan to continue empiric broad-spectrum antimicrobials to complete 10 days. Antigen testing and viral panels were unremarkable. 3. Upper GI bleed secondary to grade a erosive esophagitis, hiatal hernia and duodenal ulcer with visible vessel Hemoglobin appears to be stable today. Patient is doing well on the current therapy. Okay to advance diet from my perspective. Patient may requirea repeat endoscopy in the future to reassess healing given visible vessel. Continue PPI twice daily. Defer to GI on timing of reassessment 4. History of seasonal allergic rhinitis/history of tobacco dependency, in remission Complicates care, management, recovery and prognosis. Continue home medications as indicated. Subjective Subjective Patient did okay overnight. Patient subjectively feels slightly improved compared to yesterday. Patient still feels a heaviness on her chest. Patient'soxygen requirements have significantly improved following diuretics yesterday. No melena or hematochezia reported Objective Data Objective Data Vital Signs: Vital Signs Temp Pulse Resp BP Pulse Ox O2 Del Method O2 Flow Rate 36.4 C L 68 16 134/55 H 93 Nasal Cannula 4 06/12/23 03:40 06/12/23 07:58 06/12/23 06:56 06/12/23 03:40 06/12/23 06:56 06/12/23 06:56 06/12/23 06:56 FiO2 45 06/09/23 23:00 Oxygen Flow Rate (L/min) 4 Oxygen Delivery Method Nasal Cannula Weight: 70.4 kg Body Mass Index (BMI) 26.6 Intake & Output: Intake and Output for Last 24 Hours 06/10/23 06/11/23 06/12/23 23:59 23:59 23:59 Intake Total 1810 / 1810 2004.75 / 2004.75 120 / 120 Output Total 1870 / 1870 2430 / 2980 950 / 950 Balance -60 / -60 -425.25 / -975.25 -830 / -830 Lab / Micro Data Attestation: I reviewed the patient's lab results. 06/12/23 06:27 06/11/23 06:40 Labs: Laboratory Results - last 24 hr 06/12/23 06:27: WBC 20.1 H, RBC 3.01 L, Hgb 8.8 L, Hct 27.3 L, MCV 90.7, MCH 29.2, MCHC 32.2, RDW Std Deviation 43.1, RDW Coeff of Laly 13.0, Plt Count 612 H,MPV 10.0, Immature Gran % (Auto) 2.700 H, Neut % (Auto) 65.7, Lymph % (Auto) 19.9, Robertson % (Auto) 8.6, Eos % (Auto) 2.9, Baso % (Auto) 0.2, Absolute Neuts (auto) 13.2 H, Absolute Lymphs (auto) 4.01, Nucleated RBC % 0 Micro: Microbiology 06/07/23 Unknown Fluid - Pleural (Lung) Gram Stain - Final 06/07/23 Unknown Fluid - Pleural (Lung) Body Fluid Culture - Final Culture exhibits no growth. 06/07/23 Unknown Fluid - Pleural (Lung) Anaerobic Culture - Preliminary No growth in 48 hours. 06/08/23 10:15 Stool Stool Occult Blood (ROSAURA) - Final Occult Blood Positive 06/02/23 10:47 Blood Culture (Wb) - Right Hand Blood Culture - Final No growth in 5 days. 06/02/23 09:26 Blood Culture (Wb) - Left Hand Blood Culture - Final No growth in 5 days. 06/02/23 10:34 Urine, Catheterized Urine Culture - Final Culture exhibits no growth. 06/03/23 09:15 Mucosa - Nose Coronavirus COVID-19 PCR - Final 06/02/23 10:34 Urine, Random Legionella Antigen - Final 06/02/23 10:34 Urine, Random Streptococcus pneumoniae Antigen (M - Final 06/02/23 11:22 Mucosa - Nasopharyngeal Respiratory Panel (PCR) - Final Radiography Diagnostic Testing: Radiology Impression Chest X-Ray 06/12/23 06:00 IMPRESSION: No significant interval change as compared to the prior study of 06/10/2023. Electronically Signed: Neo To MD at 6:51 EST , Rhythm Strip Rhythm Strip: Sinus Rhythm Rate: 70 Ectopy: None Physical Exam Const alert, oriented x3 and no apparent distress Constitutional Narrative: Sitting in bedside recliner. No conversational dyspnea noted General Appearance: cooperative HEENT normocephalic and head/scalp atraumatic Eyes PERRL, EOMs intact bilaterally and conjunctivae normal Neck supple General: trachea midline Chest inspection of chest normal Resp Resp Narrative: Slowly improving air movement throughout all lung zepeda Auscultation: diminished lung sounds diffuse; Negative for rales, rhonchi or wheezes Percussion: dullness Lower: right Cardio regular rate, regular rhythm, S1 normal heart sound and S2 normal heart sound GI normal to inspection, nondistended, normoactive bowel sounds Extremity no clubbing, cyanosis or edema Skin no rashes or lesions noted Neuro CN's II-XII intact bilaterally, moves all extremities and no focal motor deficits Psych cooperative and affect normal Charges/Coding Visit Charges Inpatient E&M: 94340 Subs Hosp L2 06/12/2351 <Electronically signed by Kapil Doyle MD> Cosigner Signature (if applicable): CC: ~ Signed [facility] Work Phone: 1(627) 934-647812-09-2023 Progress note Author Td Pillai [facility] June 11, 2023 4:18pm Note Date/Time June 11, 2023 4 :18pm [facility] Medical Records Department [address] [place] [address] Progress Note - Hospitalist 06/11/23 1615 MR#: [id number] Acct: [id number] Name: SNEHA CARDENAS Rep #:[id number] : 1955 68 From: Td Pillai DO PCP: Dr. Julio Draper MD Status:A DM IN Location: [place] [address] Reason for Visit Reason for Visit: Diagnoses Pneumonia, unspecified organism (06/02/23) Chronic obstructive pulmonary disease with (acute) exacerbation (06/02/23) Pleural effusion in other conditions classified elsewhere (06/02/23) Gastrointestinal hemorrhage, unspecified (06/02/23) Subjective Subjective And examined today, I talked with pulmonary medicine briefly about her care, sheis currently on 4 L of oxygen via nasal cannula. Objective Data Objective Data Vital Signs: Vital Signs Temp Pulse Resp BP Pulse Ox O2 Del Method O2 Flow Rate 98.2 F 72 16 128/62 H 96 Nasal Cannula 4 06/11/23 14:51 06/11/23 15:08 06/11/23 15:08 06/11/23 14:51 06/11/23 14:51 06/11/23 14:52 06/11/23 14:52 FiO2 45 06/09/23 23:00 Oxygen Flow Rate (L/min) 4 Oxygen Delivery Method Nasal Cannula Weight: 70.9 kg Body Mass Index (BMI) 26.8 Intake & Output: Intake and Output for Last 24 Hours 06/09/23 06/10/23 06/11/23 23:59 23:59 23:59 Intake Total 5841 / 1 1810 / 1810 974.75 / 974.75 Output Total 1050 / 1800 1870 / 1870 980 / 980 Balance 651 / 281 -60 / -60 -5.25 / -5.25 Lab / Micro Data 06/11/23 06:40 06/11/23 06:40 Labs: Laboratory Results - last 24 hr 06/11/23 06:40: WBC 18.6 H 06/11/23 06:40: WBC Cancelled, Corrected WBC Cancelled, RBC 2.85 L 06/11/23 06:40: RBC Cancelled, Hgb 8.2 L 06/11/23 06:40: Hgb Cancelled, Hct 26.0 L 06/11/23 06:40: Hct Cancelled, MCV 91.2 06/11/23 06:40: MCV Cancelled, MCH 28.8 06/11/23 06:40: MCH Cancelled, MCHC 31.5 L 06/11/23 06:40: MCHC Cancelled, RDW Std Deviation 42.5 06/11/23 06:40: RDW Std Deviation Cancelled, RDW Coeff of Laly 12.9 06/11/23 06:40: RDW Coeff of Laly Cancelled, Plt Count 505 H 06/11/23 06:40: Plt Count Cancelled, MPV 10.0 06/11/23 06:40: MPV Cancelled, Immature Gran % (Auto) 3.000 H 06/11/23 06:40: Immature Gran % (Auto) Cancelled, Neut % (Auto) 70.8 H 06/11/23 06:40: Neut % (Auto) Cancelled, Lymph % (Auto) 15.4 L 06/11/23 06:40: Lymph % (Auto) Cancelled, Robertson % (Auto) 6.9 06/11/23 06:40: Robertson % (Auto) Cancelled, Eos % (Auto) 3.7 06/11/23 06:40: Eos % (Auto) Cancelled, Baso % (Auto) 0.2 06/11/23 06:40: Baso % (Auto) Cancelled, Absolute Neuts (auto) 13.2 H 06/11/23 06:40: Absolute Neuts (auto) Cancelled, Absolute Lymphs (auto) 2.86 06/11/23 06:40: Absolute Lymphs (auto) Cancelled, Total Counted Cancelled, Neutrophils % (Manual) Cancelled, Band Neutrophils % Cancelled, Lymphocytes % (Manual) Cancelled, Monocytes % (Manual) Cancelled, Eosinophils % (Manual) Cancelled, Basophils % (Manual) Cancelled, Metamyelocytes % Cancelled, Myelocytes % Cancelled, Promyelocytes % Cancelled, Blast Cells % Cancelled, Plasma Cell % (Manual) Cancelled, Other Cells % Cancelled, Nucleated RBC % 0 06/11/23 06:40: Nucleated RBC % Cancelled, Nucleated RBCs/100 WBC Cancelled, Differential Comment Cancelled, Diff Path Review Cancelled, Hypersegmented NeutsCancelled, Atypical Lymphocytes Cancelled, Reactive Lymphocytes Cancelled, Smudge Cells Cancelled, Toxic Granulation Cancelled, Toxic Vacuolation Cancelled, Dohle Bodies Cancelled, Kimmie Rods Cancelled, Platelet Estimate Cancelled, Plt Morphology Comment Cancelled, RBC Morphology Cancelled 06/11/23 06:40: RBC Morphology Cancelled, Polychromasia Cancelled, HypochromasiaCancelled, Poikilocytosis Cancelled, Basophilic Stippling Cancelled, Anisocytosis Cancelled, Microcytosis Cancelled, Macrocytosis Cancelled, Spherocytes Cancelled, Sickle Cells Cancelled, Target Cells Cancelled, Tear DropCells Cancelled, Ovalocytes Cancelled, Stomatocytes Cancelled, Winkler-Orcutt Bodies Cancelled, Luis Cells Cancelled, Bite Cells Cancelled, Crenated Cell Cancelled, Acanthocytes (Spur) Cancelled, Rouleaux Cancelled, Schistocytes Cancelled, Sodium 139, Potassium 3.8, Chloride 100, Carbon Dioxide 38.0 H, AnionGap 1 L, BUN 18, Creatinine 0.46 L, Estim Creat Clear Calc 47.14, Est GFR (MDRD)Af Amer 176, Est GFR (MDRD) Non-Af 145, BUN/Creatinine Ratio 39.4 H, Glucose 107H, Calcium 8.0 L, Magnesium 2.4 Micro: Microbiology 06/07/23 Unknown Fluid - Pleural (Lung) Gram Stain - Final 06/07/23 Unknown Fluid - Pleural (Lung) Body Fluid Culture - Final Culture exhibits no growth. 06/07/23 Unknown Fluid - Pleural (Lung) Anaerobic Culture - Preliminary No growth in 48 hours. 06/08/23 10:15 Stool Stool Occult Blood (ROSAURA) - Final Occult Blood Positive 06/02/23 10:47 Blood Culture (Wb) - Right Hand Blood Culture - Final No growth in 5 days. 06/02/23 09:26 Blood Culture (Wb) - Left Hand Blood Culture - Final No growth in 5 days. 06/02/23 10:34 Urine, Catheterized Urine Culture - Final Culture exhibits no growth. 06/03/23 09:15 Mucosa - Nose Coronavirus COVID-19 PCR - Final 06/02/23 10:34 Urine, Random Legionella Antigen - Final 06/02/23 10:34 Urine, Random Streptococcus pneumoniae Antigen (M - Final 06/02/23 11:22 Mucosa - Nasopharyngeal Respiratory Panel (PCR) - Final Rhythm Strip Rhythm Strip: Sinus Rhythm Rate: 65 Ectopy: None Physical Exam Narrative alert and no apparent distress Constitutional Narrative: Patient appears older than her stated age General Appearance: cooperative, well kempt and well developed Orientation / Consciousness: awake, oriented to person and oriented to place HEENT normocephalic, head/scalp atraumatic and moist oral mucous membranes Eyes PERRL, EOMs intact bilaterally and conjunctivae normal Neck supple, no JVD, thyroid normal and no carotid bruits General: trachea midline Resp normal respiratory effort, no retractions and no use of accessory muscles Resp Narrative: Breath sounds are distant bilaterally Auscultation: Negative for rales, rhonchi or wheezes Cardio regular rate, regular rhythm, S1 normal heart sound, S2 normal heart sound, no murmurs, no rub and no gallops GI normal to inspection, nondistended, normoactive bowel sounds, soft to palpation,non-tender and non-distended Extremity no clubbing, cyanosis or edema Skin no rashes or lesions noted General Skin Exam: no breakdown Neuro CN's II-XII intact bilaterally, moves all extremities, no focal motor deficits and no sensory deficits noted Sensorium / Orientation: awake, alert, oriented to person and oriented to place Speech: speech normal Psych affect normal Assessment & Plan Assessment/Plan (1) Right lower lobe pneumonia: (2) GI bleed: QUALIFIERS: GI bleed type/associated pathology: unspecified gastrointestinal hemorrhage type Qualified Code(s): K92.2 - Gastrointestinal hemorrhage, unspecified (3) Community acquired pneumonia of right lower lobe of lung: PLAN: Plan 1. Sepsis secondary to right lower lobe community-acquired pneumonia-patient will continue on IV antibiotics, pulmonary medicine is participating in her care #2 acute on chronic combined respiratory failure secondary to chronic obstructive pulmonary disease and pneumonia-patient is currently on 4 L via nasal cannula, her home oxygen requirement appears to be 3 L/min, continue aerosol treatments, IV steroids and antibiotics #3 acute anemia secondary to acute upper GI bleed from duodenal ulcers and erosive esophagitis-patient remains on a PPI at this time, recheck labs tomorrow #4 chronic obstructive pulmonary disease-complicates care, medical course, recovery, and prognosis #5 right pleural effusion-patient will probably require repeat thoracentesis on Tuesday Total clinical time spent by myself addressing the patient's medical issues, reviewing all of her data, and collaborating with patient's care team: 25 minutes Charges/Coding Visit Charges Inpatient E&M: 16857 Subs Hosp L1 06/11/23 1618 <Electronically signed by Td Pillai DO> Cosigner Signature (if applicable): CC: ~ Signed [facility] Work Phone: 1(587) 175-810312-09-2023 Progress note Author Kapil Doyle [facility] June 11, 2023 9:45am Note Date/Time June 11, 2023 8 :35am [facility] Medical Records Department [address] [place] [id number] Progress Note - Linting Machine Operator 06/11/23 0832 MR#: [id number] Acct: [id number] Name: SNEHA CARDENAS Reji Rep #:[id number] : 1955 68 From: Kapil Doyle MD PCP: Dr. Julio Draper MD Status:A DM IN Location: [place] [address] Assessment & Plan Assessment/Plan (1) COPD with acute exacerbation: PLAN: Plan RECOMMENDATIONS: 1. Continue nasal cannula oxygen. Wean FiO2 for saturations greater than 90%. 2. Continue scheduled BuSpar and bronchodilator therapy. 3. Continue scheduled antibiotics to complete a 10-day course. 4. Wean prednisone over the next 12 to 14 days 5. Probable repeat thoracentesis on Tuesday. Continue to hold Eliquis until thoracentesis 6. Repeat chest x-ray in a.m. 7. Challenge with Lasix IMPRESSIONS: 1. Acute and chronic respiratory failure with hypoxemia and hypercapnia secondary to COPD with exacerbation The patient has a known history of COPD and chronic hypoxemic respiratory failure with a baseline 3 L/min oxygen requirement. She is followed regularly by Dr. Magali Nieves at [facility] pulmonary medicine. The patient appears to be in a state of exacerbation secondary to right lower lobe pneumonia complicated by parapneumonic effusion. Chest x-ray this morning does show some increase in effusion. She did have evidence of acute CO2 retention in the emergency department and was initiated on appropriate noninvasive positive pressure ventilatory support. Patient likely will require 10 days of antibiotics given parapneumonic effusion. Will challenge patient with Lasix today. Anticipate thoracentesis will be required on Tuesday. Would monitor in the hospital over the weekend 2. Sepsis secondary to pneumonia with parapneumonic effusion The patient presented to the hospital with sepsis due to probable right lower lobe pneumonia with acute sepsis related organ dysfunction as evidenced byno need for noninvasive positive pressure ventilatory support. The patient has been fluid resuscitated with appropriate response hemodynamically. Cultures arenegative from the pleural fluid. Plan to continue empiric broad-spectrum antimicrobials to complete 10 days. Antigen testing and viral panels were unremarkable. 3. Upper GI bleed secondary to grade a erosive esophagitis, hiatal hernia and duodenal ulcer with visible vessel Hemoglobin appears to be stable today. Patient is doing well on the current therapy. Okay to advance diet from my perspective. Patient may requirea repeat endoscopy in the future to reassess healing given visible vessel. Continue PPI twice daily 4. History of seasonal allergic rhinitis/history of tobacco dependency, in remission Complicates care, management, recovery and prognosis. Continue home medications as indicated. Subjective Subjective Patient did okay overnight. Patient is reporting more heaviness on the chest this morning compared to yesterday. Patient also had to go from 3 L nasal cannula to 5 L nasal cannula to maintain saturations. Patient is not reporting anynausea or vomiting. Objective Data Objective Data Vital Signs: Vital Signs Temp Pulse Resp BP Pulse Ox O2 Del Method O2 Flow Rate 36.0 C L 73 18 144/64 H 97 Nasal Cannula 3 06/11/23 03:35 06/11/23 03:59 06/11/23 03:59 06/11/23 03:35 06/11/23 03:35 06/11/23 03:35 06/11/23 03:35 FiO2 45 06/09/23 23:00 Oxygen Flow Rate (L/min) 3 Oxygen Delivery Method Nasal Cannula Weight: 70.9 kg Body Mass Index (BMI) 26.8 Intake & Output: Intake and Output for Last 24 Hours 06/09/23 06/10/23 06/11/23 23:59 23:59 23:59 Intake Total 1701 / 2081 1810 / 1810 270 / 270 Output Total 1050 / 1800 1870 / 1870 230 / 230 Balance 651 / 281 -60 / -60 40 / 40 Lab / Micro Data Attestation: I reviewed the patient's lab results. 06/11/23 06:40 06/11/23 06:40 Labs: Laboratory Results - last 24 hr 06/11/23 06:40: WBC 18.6 H 06/11/23 06:40: WBC Cancelled, Corrected WBC Cancelled, RBC 2.85 L 06/11/23 06:40: RBC Cancelled, Hgb 8.2 L 06/11/23 06:40: Hgb Cancelled, Hct 26.0 L 06/11/23 06:40: Hct Cancelled, MCV 91.2 06/11/23 06:40: MCV Cancelled, MCH 28.8 06/11/23 06:40: MCH Cancelled, MCHC 31.5 L 06/11/23 06:40: MCHC Cancelled, RDW Std Deviation 42.5 06/11/23 06:40: RDW Std Deviation Cancelled, RDW Coeff of Laly 12.9 06/11/23 06:40: RDW Coeff of Laly Cancelled, Plt Count 505 H 06/11/23 06:40: Plt Count Cancelled, MPV 10.0 06/11/23 06:40: MPV Cancelled, Immature Gran % (Auto) 3.000 H 06/11/23 06:40: Immature Gran % (Auto) Cancelled, Neut % (Auto) 70.8 H 06/11/23 06:40: Neut % (Auto) Cancelled, Lymph % (Auto) 15.4 L 06/11/23 06:40: Lymph % (Auto) Cancelled, Robertson % (Auto) 6.9 06/11/23 06:40: Robertson % (Auto) Cancelled, Eos % (Auto) 3.7 06/11/23 06:40: Eos % (Auto) Cancelled, Baso % (Auto) 0.2 06/11/23 06:40: Baso % (Auto) Cancelled, Absolute Neuts (auto) 13.2 H 06/11/23 06:40: Absolute Neuts (auto) Cancelled, Absolute Lymphs (auto) 2.86 06/11/23 06:40: Absolute Lymphs (auto) Cancelled, Total Counted Cancelled, Neutrophils % (Manual) Cancelled, Band Neutrophils % Cancelled, Lymphocytes % (Manual) Cancelled, Monocytes % (Manual) Cancelled, Eosinophils % (Manual) Cancelled, Basophils % (Manual) Cancelled, Metamyelocytes % Cancelled, Myelocytes % Cancelled, Promyelocytes % Cancelled, Blast Cells % Cancelled, Plasma Cell % (Manual) Cancelled, Other Cells % Cancelled, Nucleated RBC % 0 06/11/23 06:40: Nucleated RBC % Cancelled, Nucleated RBCs/100 WBC Cancelled, Differential Comment Cancelled, Diff Path Review Cancelled, Hypersegmented NeutsCancelled, Atypical Lymphocytes Cancelled, Reactive Lymphocytes Cancelled, Smudge Cells Cancelled, Toxic Granulation Cancelled, Toxic Vacuolation Cancelled, Dohle Bodies Cancelled, Kimmie Rods Cancelled, Platelet Estimate Cancelled, Plt Morphology Comment Cancelled, RBC Morphology Cancelled 06/11/23 06:40: RBC Morphology Cancelled, Polychromasia Cancelled, HypochromasiaCancelled, Poikilocytosis Cancelled, Basophilic Stippling Cancelled, Anisocytosis Cancelled, Microcytosis Cancelled, Macrocytosis Cancelled, Spherocytes Cancelled, Sickle Cells Cancelled, Target Cells Cancelled, Tear DropCells Cancelled, Ovalocytes Cancelled, Stomatocytes Cancelled, Winkler-Orcutt Bodies Cancelled, Luis Cells Cancelled, Bite Cells Cancelled, Crenated Cell Cancelled, Acanthocytes (Spur) Cancelled, Rouleaux Cancelled, Schistocytes Cancelled, Sodium 139, Potassium 3.8, Chloride 100, Carbon Dioxide 38.0 H, Anion Gap 1 L, BUN 18, Creatinine 0.46 L, Estim Creat Clear Calc 47.14, Est GFR (MDRD)Af Amer 176, Est GFR (MDRD) Non-Af 145, BUN/Creatinine Ratio 39.4 H, Glucose 107H, Calcium 8.0 L, Magnesium 2.4 Micro: Microbiology 06/07/23 Unknown Fluid - Pleural (Lung) Gram Stain - Final 06/07/23 Unknown Fluid - Pleural (Lung) Body Fluid Culture - Final Culture exhibits no growth. 06/07/23 Unknown Fluid - Pleural (Lung) Anaerobic Culture - Preliminary No growth in 48 hours. 06/08/23 10:15 Stool Stool Occult Blood (ROSAURA) - Final Occult Blood Positive 06/02/23 10:47 Blood Culture (Wb) - Right Hand Blood Culture - Final No growth in 5 days. 06/02/23 09:26 Blood Culture (Wb) - Left Hand Blood Culture - Final No growth in 5 days. 06/02/23 10:34 Urine, Catheterized Urine Culture - Final Culture exhibits no growth. 06/03/23 09:15 Mucosa - Nose Coronavirus COVID-19 PCR - Final 06/02/23 10:34 Urine, Random Legionella Antigen - Final 06/02/23 10:34 Urine, Random Streptococcus pneumoniae Antigen (M - Final 06/02/23 11:22 Mucosa - Nasopharyngeal Respiratory Panel (PCR) - Final Radiography Diagnostic Testing: Radiology Impression Chest X-Ray 06/10/23 05:15 IMPRESSION: Worsening right infiltrate and pleural effusion. Electronically Signed: Mikael Slaughter MD at 9:12 EST , Rhythm Strip Rhythm Strip: Sinus Rhythm Rate: 65 Ectopy: None Physical Exam Const alert, oriented x3 and no apparent distress Constitutional Narrative: Sitting in bedside recliner. No conversational dyspnea noted General Appearance: cooperative and ill appearing HEENT normocephalic and head/scalp atraumatic Eyes PERRL, EOMs intact bilaterally and conjunctivae normal Neck supple General: trachea midline Chest inspection of chest normal Resp Effort and Inspection: tachypneic Auscultation: diminished lung sounds diffuse; Negative for rales, rhonchi or wheezes Percussion: dullness Lower: right Cardio regular rate, regular rhythm, S1 normal heart sound and S2 normal heart sound GI normal to inspection, nondistended, normoactive bowel sounds Extremity no clubbing, cyanosis or edema Skin no rashes or lesions noted Neuro CN's II-XII intact bilaterally, moves all extremities and no focal motor deficits Psych cooperative and affect normal Mood & Affect: anxious and flat affect Charges/Coding Visit Charges Inpatient E&M: 54492 Subs Hosp L2 06/11/23 0945 <Electronically signed by Kapil Doyle MD> Cosigner Signature (if applicable): CC: ~ Signed [facility] Work Phone: 1(331) 613-740812-08-2023 Progress note Author Ramon Friend [facility] June 10, 2023 4:24pm Note Date/Time June 10, 2023 4 :23pm [facility] Medical Records Department [address] [place] [address] Progress Note - GI 06/10/23 1622 MR#: [id number] Acct: [id number] Name: SNEHA CARDENAS Rep #:[id number] : 1955 68 From: Ramon Antunez DO PCP: Dr. Julio Draper MD Status:A DM IN Location: ICU [id number] 2-1 Subjective Subjective Patient underwent an upper endoscopy yesterday for acute upper GI bleed. She was discovered to have some superficial ulcers without bleeding stigmata in the stomach. She also was discovered to have a large duodenal ulcer encompassing the entire duodenal bulb extending into the first portion of the duodenum with alarge blood clot. Signs of recent active bleeding. It was removed and treated with 20 mg of epinephrine along with heater probe and clipping yesterday. She denies any abdominal pain today. She is tolerating a liquid diet advanced. Objective Data Objective Data Vital Signs: Vital Signs Temp Pulse Resp BP Pulse Ox O2 Del Method O2 Flow Rate 97.0 F L 74 19 H 116/57 L 94 Nasal Cannula 3 06/10/23 15:00 06/10/23 15:18 06/10/23 15:18 06/10/23 15:00 06/10/23 15:00 06/10/23 15:00 06/10/23 15:00 FiO2 45 06/09/23 23:00 Oxygen Flow Rate (L/min) 3 Oxygen Delivery Method Nasal Cannula Weight: 156 lb 11.979 oz Body Mass Index (BMI) 26.9 Intake & Output: Intake and Output for Last 24 Hours 06/08/23 06/09/23 06/10/23 23:59 23:59 23:59 Intake Total 998.00 / 998.00 1701 / 2081 1240 / 1240 Output Total 950 / 1350 1050 / 1800 1600 / 1600 Balance 48.00 / -352.00 651 / 281 -360 / -360 Lab / Micro Data 06/10/23 05:00 06/10/23 05:00 Labs: Laboratory Results - last 24 hr 06/10/23 05:00: WBC 14.7 H, RBC 2.69 L, Hgb 7.9 L, Hct 24.6 L, MCV 91.4, MCH 29.4, MCHC 32.1 D, RDW Std Deviation 42.3, RDW Coeff of Laly 12.9, Plt Count 344, MPV 10.2, Immature Gran % (Auto) 2.700 H, Neut % (Auto) 71.0 H, Lymph % (Auto) 17.4 L, Robertson % (Auto) 7.2, Eos % (Auto) 1.6, Baso % (Auto) 0.1, Absolute Neuts (auto) 10.4 H, Absolute Lymphs (auto) 2.55, Nucleated RBC % 0, Sodium 140,Potassium 3.7, Chloride 101, Carbon Dioxide 40.0 H, Anion Gap -1 L, BUN 23 H, Creatinine 0.48 L, Estim Creat Clear Calc 47.14, Est GFR (MDRD) Af Amer 167, EstGFR (MDRD) Non-Af 138, BUN/Creatinine Ratio 48.2 H, Glucose 86, Calcium 7.7 L, Magnesium 2.5 06/10/23 05:22: Ionized Calcium 4.59 Micro: Microbiology 06/07/23 Unknown Fluid - Pleural (Lung) Gram Stain - Final 06/07/23 Unknown Fluid - Pleural (Lung) Body Fluid Culture - Final Culture exhibits no growth. 06/07/23 Unknown Fluid - Pleural (Lung) Anaerobic Culture - Preliminary No growth in 48 hours. 06/08/23 10:15 Stool Stool Occult Blood (ROSAURA) - Final Occult Blood Positive 06/02/23 10:47 Blood Culture (Wb) - Right Hand Blood Culture - Final No growth in 5 days. 06/02/23 09:26 Blood Culture (Wb) - Left Hand Blood Culture - Final No growth in 5 days. 06/02/23 10:34 Urine, Catheterized Urine Culture - Final Culture exhibits no growth. 06/03/23 09:15 Mucosa - Nose Coronavirus COVID-19 PCR - Final 06/02/23 10:34 Urine, Random Legionella Antigen - Final 06/02/23 10:34 Urine, Random Streptococcus pneumoniae Antigen (M - Final 06/02/23 11:22 Mucosa - Nasopharyngeal Respiratory Panel (PCR) - Final Radiography Diagnostic Testing: Radiology Impression Chest X-Ray 06/10/23 05:15 IMPRESSION: Worsening right infiltrate and pleural effusion. Electronically Signed: Mikael Slaughter MD at 9:12 EST , Rhythm Strip Rhythm Strip: Sinus Rhythm Rate: 68 Ectopy: None Physical Exam Narrative alert and no apparent distress Constitutional Narrative: Patient appears older than her stated age General Appearance: cooperative, well kempt and well developed Orientation / Consciousness: awake, oriented to person and oriented to place HEENT normocephalic, head/scalp atraumatic and moist oral mucous membranes Eyes PERRL, EOMs intact bilaterally and conjunctivae normal Neck supple, no JVD, thyroid normal and no carotid bruits General: trachea midline Resp normal respiratory effort, no retractions and no use of accessory muscles Resp Narrative: Breath sounds are distant bilaterally Auscultation: Negative for rales, rhonchi or wheezes Cardio regular rate, regular rhythm, S1 normal heart sound, S2 normal heart sound, no murmurs, no rub and no gallops GI normal to inspection, nondistended, normoactive bowel sounds, soft to palpation,non-tender and non-distended Extremity no clubbing, cyanosis or edema Skin no rashes or lesions noted General Skin Exam: no breakdown Neuro CN's II-XII intact bilaterally, moves all extremities, no focal motor deficits and no sensory deficits noted Sensorium / Orientation: awake, alert, oriented to person and oriented to place Speech: speech normal Psych affect normal Assessment & Plan Assessment/Plan (1) COPD with acute exacerbation: (2) GI bleed: QUALIFIERS: GI bleed type/associated pathology: unspecified gastrointestinal hemorrhage type Qualified Code(s): K92.2 - Gastrointestinal hemorrhage, unspecified PLAN: Plan Assessment The patient has a known history of COPD and chronic hypoxemic respiratory failure with a baseline 3 L/min oxygen requirement. The patient appears to be in a state of exacerbation secondary to right lower lobe pneumonia. She underwent thoracentesis. She currently has what is believed to be an acute upperGI bleed. She will undergo an upper endoscopy to evaluate upper GI tract. She was explained alternatives, risk, benefits include not withstanding bleeding, infection, sepsis, perforation, need for emergent surgery and . She will have an ASA of 3. 06/10-her hemoglobin is slightly down to 7.9 from 8.2. She is on PPI therapy twice a day. I will also add Carafate therapy 3 times a day. Continue to monitor hemoglobin. Charges/Coding Visit Charges Inpatient E&M: 71933 [facility] Hosp L3 06/10/23 1624 <Electronically signed by Ramon Friend DO> Cosigner Signature (if applicable): CC: ~ Signed [facility] Work Phone: 1(392) 608-785612-08-2023 Progress note Author Kapil Doyle [facility] June 10, 2023 1:15pm Note Date/Time June 10, 2023 8 :28am [facility] Medical Records Department [address] [place] [address] Progress Note - Linting Machine Operator 06/10/23820 MR#: [id number] Acct: [id number] Name: SNEHA CARDENAS Rep #:[id number] : 1955 68 From: Kapil Doyle MD PCP: Dr. Julio Draper MD Status:A DM IN Location: ICU CVICU20 2-1 Assessment & Plan Assessment/Plan (1) COPD with acute exacerbation: PLAN: Plan RECOMMENDATIONS: 1. Continue nasal cannula oxygen. Wean FiO2 for saturations greater than 90%. 2. Continue scheduled BuSpar and bronchodilator therapy. 3. Continue scheduled antibiotics to complete a 10-day course. 4. Wean prednisone over the next 12 to 14 days 5. Probable repeat thoracentesis on Tuesday. Continue to hold Eliquis until thoracentesis 6. Okay to leave the intensive care unit from my perspective IMPRESSIONS: 1. Acute and chronic respiratory failure with hypoxemia and hypercapnia secondary to COPD with exacerbation The patient has a known history of COPD and chronic hypoxemic respiratory failure with a baseline 3 L/min oxygen requirement. She is followed regularly by Dr. Magali Nieves at [facility] pulmonary medicine. The patient appears to be in a state of exacerbation secondary to right lower lobe pneumonia complicated by parapneumonic effusion. Chest x-ray this morning does show some increase in effusion. She did have evidence of acute CO2 retention in the emergency department and was initiated on appropriate noninvasive positive pressure ventilatory support. Patient likely will require 10 days of antibiotics given parapneumonic effusion 2. Sepsis The patient presented to the hospital with sepsis due to probable right lower lobe pneumonia with acute sepsis related organ dysfunction as evidenced byno need for noninvasive positive pressure ventilatory support. The patient has been fluid resuscitated with appropriate response hemodynamically. Cultures arepending. Plan to continue empiric broad-spectrum antimicrobials to complete 10 days. Antigen testing and viral panels were unremarkable. 3. Upper GI bleed secondary to grade a erosive esophagitis, hiatal hernia and duodenal ulcer with visible vessel Hemoglobin appears to be stable today. Patient is doing well on the current therapy. Okay to advance diet from my perspective. Patient may requirea repeat endoscopy in the future following discharge. Continue PPI twice daily 4. History of seasonal allergic rhinitis/history of tobacco dependency, in remission Complicates care, management, recovery and prognosis. Continue home medications as indicated. Subjective Subjective Patient did okay overnight. Patient did not have any acute issues and has remained on her baseline oxygen. Patient does report that she has a sensation of fullness in her right chest, but is comfortable sitting in the chair. Objective Data Objective Data Vital Signs: Vital Signs Temp Pulse Resp BP Pulse Ox O2 Del Method O2 Flow Rate 36.6 C 74 18 113/50 L 93 Nasal Cannula 3 06/10/23 04:00 06/10/23 07:08 06/10/23 07:08 06/10/23 04:00 06/10/23 07:08 06/10/23 07:08 06/10/23 07:08 FiO2 45 06/09/23 23:00 Oxygen Flow Rate (L/min) 3 Oxygen Delivery Method Nasal Cannula Weight: 71.1 kg Body Mass Index (BMI) 26.9 Intake & Output: Intake and Output for Last 24 Hours 12/06/23 12/07/23 12/08/23 23:59 23:59 23:59 Intake Total 998.00 / 998.00 1701 / 2081 650 / 650 Output Total 950 / 1350 1050 / 1800 1050 / 1050 Balance 48.00 / -352.00 651 / 281 -400 / -400 Lab / Micro Data Attestation: I reviewed the patient's lab results. 06/10/23 05:00 06/10/23 05:00 Labs: Laboratory Results - last 24 hr 06/07/23 : Fl Pathologist Comment Reviewed 06/10/23 05:00: WBC 14.7 H, RBC 2.69 L, Hgb 7.9 L, Hct 24.6 L, MCV 91.4, MCH 29.4, MCHC 32.1 D, RDW Std Deviation 42.3, RDW Coeff of Laly 12.9, Plt Count 344, MPV 10.2, Immature Gran % (Auto) 2.700 H, Neut % (Auto) 71.0 H, Lymph % (Auto) 17.4 L, Robertson % (Auto) 7.2, Eos % (Auto) 1.6, Baso % (Auto) 0.1, Absolute Neuts (auto) 10.4 H, Absolute Lymphs (auto) 2.55, Nucleated RBC % 0, Sodium 140,Potassium 3.7, Chloride 101, Carbon Dioxide 40.0 H, Anion Gap -1 L, BUN 23 H, Creatinine 0.48 L, Estim Creat Clear Calc 47.14, Est GFR (MDRD) Af Amer 167, EstGFR (MDRD) Non-Af 138, BUN/Creatinine Ratio 48.2 H, Glucose 86, Calcium 7.7 L, Magnesium 2.5 06/10/23 05:22: Ionized Calcium 4.59 Micro: Microbiology 06/07/23 Unknown Fluid - Pleural (Lung) Gram Stain - Final 06/07/23 Unknown Fluid - Pleural (Lung) Anaerobic Culture - Preliminary No growth in 48 hours. 06/08/23 10:15 Stool Stool Occult Blood (ROSAURA) - Final Occult Blood Positive 06/02/23 10:47 Blood Culture (Wb) - Right Hand Blood Culture - Final No growth in 5 days. 06/02/23 09:26 Blood Culture (Wb) - Left Hand Blood Culture - Final No growth in 5 days. 06/02/23 10:34 Urine, Catheterized Urine Culture - Final Culture exhibits no growth. 06/03/23 09:15 Mucosa - Nose Coronavirus COVID-19 PCR - Final 06/02/23 10:34 Urine, Random Legionella Antigen - Final 06/02/23 10:34 Urine, Random Streptococcus pneumoniae Antigen (M - Final 06/02/23 11:22 Mucosa - Nasopharyngeal Respiratory Panel (PCR) - Final Rhythm Strip Rhythm Strip: Sinus Rhythm Rate: 68 Ectopy: None Physical Exam Const alert, oriented x3 and no apparent distress Constitutional Narrative: Sitting in bedside recliner. No conversational dyspnea noted General Appearance: cooperative HEENT normocephalic and head/scalp atraumatic Eyes PERRL, EOMs intact bilaterally and conjunctivae normal Neck supple General: trachea midline Chest inspection of chest normal Resp Resp Narrative: Slowly improving air movement throughout all lung zepeda Auscultation: diminished lung sounds diffuse; Negative for rales, rhonchi or wheezes Percussion: dullness Lower: right Cardio regular rate, regular rhythm, S1 normal heart sound and S2 normal heart sound GI normal to inspection, nondistended, normoactive bowel sounds Extremity no clubbing, cyanosis or edema Skin no rashes or lesions noted Neuro CN's II-XII intact bilaterally, moves all extremities and no focal motor deficits Psych cooperative Mood & Affect: anxious Charges/Coding Visit Charges Inpatient E&M: 43384 Subs Hosp L3 06/10/23 1315 <Electronically signed by Kapil Doyle MD> Cosigner Signature (if applicable): CC: ~ Signed [facility] Work Phone: 1(509) 790-294012-08-2023 Progress note Author Td Pillai [facility] June 10, 2023 1:04pm Note Date/Time June 10, 2023 1 2:53pm [facility] Medical Records Department [address] [place] [address] Progress Note - Hospitalist 06/10/23 1249 MR#: [id number] Acct: [id number] Name: SNEHA CARDENAS Rep #:[id number] : 1955 68 From: Td Pillai DO PCP: Dr. Julio Draper MD Status:A DM IN Location: ICU CVICU20 2-1 Reason for Visit Reason for Visit: Diagnoses Pneumonia, unspecified organism (06/02/23) Chronic obstructive pulmonary disease with (acute) exacerbation (06/02/23) Pleural effusion in other conditions classified elsewhere (06/02/23) Gastrointestinal hemorrhage, unspecified (06/02/23) Subjective Subjective Seen and examined today, she remains on 3 L of nasal cannula oxygen. Patient had an EGD done yesterday which showed nonbleeding ulcers in the stomach, erosive esophagitis with no bleeding, an oozing duodenal ulcer with a visible vessel and nonbleeding duodenal ulcers. Objective Data Objective Data Vital Signs: Vital Signs Temp Pulse Resp BP Pulse Ox O2 Del Method O2 Flow Rate 97.3 F L 69 20 H 128/74 H 92 Nasal Cannula 3 06/10/23 08:00 06/10/23 11:09 06/10/23 11:09 06/10/23 08:50 06/10/23 08:00 06/10/23 08:00 06/10/23 08:00 FiO2 45 06/09/23 23:00 Oxygen Flow Rate (L/min) 3 Oxygen Delivery Method Nasal Cannula Weight: 71.1 kg Body Mass Index (BMI) 26.9 Intake & Output: Intake and Output for Last 24 Hours 06/08/23 06/09/23 06/10/23 23:59 23:59 23:59 Intake Total 998.00 / 998.00 1701 / 2081 880 / 880 Output Total 950 / 1350 1050 / 1800 1050 / 1050 Balance 48.00 / -352.00 651 / 281 -170 / -170 Lab / Micro Data 06/10/23 05:00 06/10/23 05:00 Labs: Laboratory Results - last 24 hr 06/10/23 05:00: WBC 14.7 H, RBC 2.69 L, Hgb 7.9 L, Hct 24.6 L, MCV 91.4, MCH 29.4, MCHC 32.1 D, RDW Std Deviation 42.3, RDW Coeff of Laly 12.9, Plt Count 344, MPV 10.2, Immature Gran % (Auto) 2.700 H, Neut % (Auto) 71.0 H, Lymph % (Auto) 17.4 L, Robertson % (Auto) 7.2, Eos % (Auto) 1.6, Baso % (Auto) 0.1, Absolute Neuts (auto) 10.4 H, Absolute Lymphs (auto) 2.55, Nucleated RBC % 0, Sodium 140,Potassium 3.7, Chloride 101, Carbon Dioxide 40.0 H, Anion Gap -1 L, BUN 23 H, Creatinine 0.48 L, Estim Creat Clear Calc 47.14, Est GFR (MDRD) Af Amer 167, EstGFR (MDRD) Non-Af 138, BUN/Creatinine Ratio 48.2 H, Glucose 86, Calcium 7.7 L, Magnesium 2.5 06/10/23 05:22: Ionized Calcium 4.59 Micro: Microbiology 06/07/23 Unknown Fluid - Pleural (Lung) Gram Stain - Final 06/07/23 Unknown Fluid - Pleural (Lung) Body Fluid Culture - Final Culture exhibits no growth. 06/07/23 Unknown Fluid - Pleural (Lung) Anaerobic Culture - Preliminary No growth in 48 hours. 06/08/23 10:15 Stool Stool Occult Blood (ROSAURA) - Final Occult Blood Positive 06/02/23 10:47 Blood Culture (Wb) - Right Hand Blood Culture - Final No growth in 5 days. 06/02/23 09:26 Blood Culture (Wb) - Left Hand Blood Culture - Final No growth in 5 days. 06/02/23 10:34 Urine, Catheterized Urine Culture - Final Culture exhibits no growth. 06/03/23 09:15 Mucosa - Nose Coronavirus COVID-19 PCR - Final 06/02/23 10:34 Urine, Random Legionella Antigen - Final 06/02/23 10:34 Urine, Random Streptococcus pneumoniae Antigen (M - Final 06/02/23 11:22 Mucosa - Nasopharyngeal Respiratory Panel (PCR) - Final Radiography Diagnostic Testing: Radiology Impression Chest X-Ray 06/10/23 05:15 IMPRESSION: Worsening right infiltrate and pleural effusion. Electronically Signed: Mikael Slaughter MD at 9:12 EST , Rhythm Strip Rhythm Strip: Sinus Rhythm Rate: 68 Ectopy: None Physical Exam Narrative alert and no apparent distress Constitutional Narrative: Patient appears older than her stated age General Appearance: cooperative, well kempt and well developed Orientation / Consciousness: awake, oriented to person and oriented to place HEENT normocephalic, head/scalp atraumatic and moist oral mucous membranes Eyes PERRL, EOMs intact bilaterally and conjunctivae normal Neck supple, no JVD, thyroid normal and no carotid bruits General: trachea midline Resp normal respiratory effort, no retractions and no use of accessory muscles Resp Narrative: Breath sounds are distant bilaterally Auscultation: Negative for rales, rhonchi or wheezes Cardio regular rate, regular rhythm, S1 normal heart sound, S2 normal heart sound, no murmurs, no rub and no gallops GI normal to inspection, nondistended, normoactive bowel sounds, soft to palpation,non-tender and non-distended Extremity no clubbing, cyanosis or edema Skin no rashes or lesions noted General Skin Exam: no breakdown Neuro CN's II-XII intact bilaterally, moves all extremities, no focal motor deficits and no sensory deficits noted Sensorium / Orientation: awake, alert, oriented to person and oriented to place Speech: speech normal Psych affect normal Assessment & Plan Assessment/Plan (1) GI bleed: QUALIFIERS: GI bleed type/associated pathology: unspecified gastrointestinal hemorrhage type Qualified Code(s): K92.2 - Gastrointestinal hemorrhage, unspecified (2) Community acquired pneumonia of right lower lobe of lung: PLAN: Plan 1. Sepsis secondary to right lower lobe community-acquired pneumonia-patient will continue on IV antibiotics, pulmonary medicine is participating in her care #2 acute on chronic combined respiratory failure secondary to chronic obstructive pulmonary disease and pneumonia-patient is currently on 5 L via nasal cannula, her home oxygen requirement appears to be 3 L/min, continue aerosol treatments, IV steroids and antibiotics #3 acute anemia secondary to acute upper GI bleed from duodenal ulcers and erosive esophagitis-patient remains on a PPI at this time, recheck labs tomorrow #4 chronic obstructive pulmonary disease-complicates care, medical course, recovery, and prognosis #5 right pleural effusion-patient will probably require repeat thoracentesis on Tuesday Total clinical time spent by myself addressing the patient's medical issues, reviewing all of her data, and collaborating with patient's care team: 35 minutes Charges/Coding Visit Charges Inpatient E&M: 25994 Subs Hosp L2 06/10/23 1304 <Electronically signed by Td Pillai DO> Cosigner Signature (if applicable): CC: ~ Signed [facility] Work Phone: [phone]) 133-675412-07-2023 Progress note Author Td Pillai [facility] June 09, 2023 6:02pm Note Date/Time June 09, 2023 6 :03pm [facility] Medical Records Department [address] [place] [address] Progress Note - Hospitalist 06/09/23 1759 MR#: [id number] Acct: [id number] Name: SNEHA CARDENAS Rep #:[id number] : 1955 68 From: Td Pillai DO PCP: Dr. Julio Draper MD Status:A DM IN Location: ICU CVICU20 2-1 Reason for Visit Reason for Visit: Diagnoses Pneumonia, unspecified organism (06/02/23) Chronic obstructive pulmonary disease with (acute) exacerbation (06/02/23) Pleural effusion in other conditions classified elsewhere (06/02/23) Gastrointestinal hemorrhage, unspecified (06/02/23) Subjective Subjective Patient was seen and examined today, she underwent an EGD which showed duodenal ulcers and erosive esophagitis. Patient's hemoglobin this morning was 8.2, she remains on 3 L of oxygen via nasal cannula. Objective Data Objective Data Vital Signs: Vital Signs Temp Pulse Resp BP Pulse Ox O2 Del Method O2 Flow Rate 96.9 F L 74 19 H 135/58 H 94 Nasal Cannula 3 06/09/23 16:00 06/09/23 16:00 06/09/23 16:00 06/09/23 16:00 06/09/23 16:00 06/09/23 16:00 06/09/23 16:00 FiO2 45 06/08/23 23:01 Oxygen Flow Rate (L/min) 3 Oxygen Delivery Method Nasal Cannula Weight: 71.1 kg Body Mass Index (BMI) 26.9 Intake & Output: Intake and Output for Last 24 Hours 06/07/23 06/08/23 06/09/23 23:59 23:59 23:59 Intake Total 2046.75 / 2046.75 998.00 / 998.00 1471 / 1471 Output Total 3320 / 3320 950 / 1350 1050 / 1050 Balance -1273.25 / -1273.25 48.00 / -352.00 421 / 421 Lab / Micro Data 06/09/23 03:36 06/09/23 03:36 Labs: Laboratory Results - last 24 hr 06/07/23 : Fl Pathologist Comment Reviewed 06/08/23 21:42: Hgb 9.2 L, Hct 30.3 L 06/09/23 03:36: WBC 15.1 H, RBC 2.92 L, Hgb 8.2 L, Hct 27.0 L, MCV 92.5, MCH 28.1, MCHC 30.4 L, RDW Std Deviation 43.1, RDW Coeff of Laly 12.9, Plt Count 350,MPV 10.4, Immature Gran % (Auto) 3.100 H, Neut % (Auto) 72.7 H, Lymph % (Auto) 13.9 L, Robertson % (Auto) 8.6, Eos % (Auto) 1.4, Baso % (Auto) 0.3, Absolute Neuts (auto) 11.0 H, Absolute Lymphs (auto) 2.09, Nucleated RBC % 0, Sodium 143, Potassium 3.5, Chloride 100, Carbon Dioxide 42.0 H, Anion Gap 1 L, BUN 30 H, Creatinine 0.40 L, Estim Creat Clear Calc 47.14, Est GFR (MDRD) Af Amer 207, EstGFR (MDRD) Non-Af 171, BUN/Creatinine Ratio 75.6 H, Glucose 89, Calcium 8.0 L, Magnesium 2.6 06/09/23 05:08: PT 14.4, INR 1.1, APTT 26.4 Micro: Microbiology 06/07/23 Unknown Fluid - Pleural (Lung) Gram Stain - Final 06/08/23 10:15 Stool Stool Occult Blood (ROSAURA) - Final Occult Blood Positive 06/02/23 10:47 Blood Culture (Wb) - Right Hand Blood Culture - Final No growth in 5 days. 06/02/23 09:26 Blood Culture (Wb) - Left Hand Blood Culture - Final No growth in 5 days. 06/02/23 10:34 Urine, Catheterized Urine Culture - Final Culture exhibits no growth. 06/03/23 09:15 Mucosa - Nose Coronavirus COVID-19 PCR - Final 06/02/23 10:34 Urine, Random Legionella Antigen - Final 06/02/23 10:34 Urine, Random Streptococcus pneumoniae Antigen (M - Final 06/02/23 11:22 Mucosa - Nasopharyngeal Respiratory Panel (PCR) - Final Rhythm Strip Rhythm Strip: Sinus Tach Rate: 120 Ectopy: None Physical Exam Narrative alert and no apparent distress Constitutional Narrative: Patient appears older than her stated age General Appearance: cooperative, well kempt and well developed Orientation / Consciousness: awake, oriented to person and oriented to place HEENT normocephalic, head/scalp atraumatic and moist oral mucous membranes Eyes PERRL, EOMs intact bilaterally and conjunctivae normal Neck supple, no JVD, thyroid normal and no carotid bruits General: trachea midline Resp normal respiratory effort, no retractions and no use of accessory muscles Resp Narrative: Breath sounds are distant bilaterally Auscultation: Negative for rales, rhonchi or wheezes Cardio regular rate, regular rhythm, S1 normal heart sound, S2 normal heart sound, no murmurs, no rub and no gallops GI normal to inspection, nondistended, normoactive bowel sounds, soft to palpation,non-tender and non-distended Extremity no clubbing, cyanosis or edema Skin no rashes or lesions noted General Skin Exam: no breakdown Neuro CN's II-XII intact bilaterally, moves all extremities, no focal motor deficits and no sensory deficits noted Sensorium / Orientation: awake, alert, oriented to person and oriented to place Speech: speech normal Psych affect normal Assessment & Plan Assessment/Plan (1) GI bleed: QUALIFIERS: GI bleed type/associated pathology: unspecified gastrointestinal hemorrhage type Qualified Code(s): K92.2 - Gastrointestinal hemorrhage, unspecified (2) Community acquired pneumonia of right lower lobe of lung: PLAN: Plan 1. Sepsis secondary to right lower lobe community-acquired pneumonia-patient will continue on IV antibiotics, pulmonary medicine is participating in her care #2 acute on chronic combined respiratory failure secondary to chronic obstructive pulmonary disease and pneumonia-patient is currently on 5 L via nasal cannula, her home oxygen requirement appears to be 3 L/min, continue aerosol treatments, IV steroids and antibiotics #3 acute anemia secondary to acute upper GI bleed from duodenal ulcers and erosive esophagitis-patient remains on a PPI at this time, recheck labs tomorrow #4 chronic obstructive pulmonary disease-complicates care, medical course, recovery, and prognosis Total clinical time spent by myself addressing the patient's medical issues, reviewing all of her data, and collaborating with patient's care team: 35 minutes Charges/Coding Visit Charges Inpatient E&M: 61696 Subs Hosp L2 06/09/23 180 <Electronically signed by Td Pillai DO> Cosigner Signature (if applicable): CC: ~ Signed [facility] Work Phone: 1([phone]) 232-467012-07-2023 Progress note Author Pao Weeks [facility] June 09, 2023 11:53am Note Date/Time June 09, 2023 1 1:45am [facility] Medical Records Department [address] [place] [address] Progress Note - Linting Machine Operator 06/09/23 1140 MR#: [id number] Acct: [id number] Name: SNEHA CARDENAS Rep #:[id number] : 1955 68 From: Pao Mckeon PCP: Dr. Julio Draper MD Status:A DM IN Location: ICU CVICU20 2-1 Assessment & Plan Assessment/Plan (1) COPD with acute exacerbation: PLAN: Plan Assessment * Acute on chronic hypoxic respiratory failure with hypercapnia (ABG on admission showed pH of 7.25 and PCO2 of 60) * Right pleural effusion exudative and neutrophilic predominant likely related to pneumonia * Acute blood loss anemia likely secondary to GI bleed * COPD exacerbation * Sepsis secondary to right lower lobe pneumonia * History of tobacco use (~[id number] )quit 10 years ago * Abnormal chest CT * A fib Plan -Resp status appears to be back to baseline at 3L NC. Follow up CXR is ordered for tomorrow to follow up for any recurrence of R pleural effusion. - She had a total of 460 C of cloudy jose pleural fluid removed on 06/07. analysis is consistent with neutrophil predominant exudative fluid likely 2/2 infection. LDH very shelia at 3968. Cultures are negative to date . will repeat chest x-ray monitor for recurrence. If indeed she does have recurrence and given the appearance of pleural effusion on ultrasound with septations notedshe will likely need a chest tube with tPA dornase or VATs and thus will requiretransfer. - She developed melena and has had multiple dark bowel movements. Her Eliquis has been on hold since 12/5 as she was undergoing thoracentesis. will continueto hold eliquis. Her hemoglobin has dropped 3g. No transfusions given so far ? Cont Protonix IV twice daily. Consulted GI, noted plan for EGD today ?Cont p.o. prednisone taper. Continue scheduled DuoNebs ?Continue to follow cultures. She remains on Merrem. She will likely require at least 2 to 3 weeks of antibiotics given her scan findings and development ofexudative effusion. -Viral panel is negative. Legionella urine antigen is negative. MRSA swab is negative. -Discussed chest CT scan findings with the patient. We discussed that she will need repeat CT scan in 6 to 8 weeks to ensure resolution. -Patient quit smoking 10 years ago. Encouraged to continue smoking cessation. -PT OT -DVT prophylaxis SCDs Subjective Subjective Report that she continues to feel better. She is back to her baseline at 3L NC. Going to EGD this AM Objective Data Objective Data Vital Signs: Vital Signs Temp Pulse Resp BP Pulse Ox O2 Del Method O2 Flow Rate 36.9 C 90 28 H 131/52 H 94 Nasal Cannula 3 06/09/23 11:24 06/09/23 11:24 06/09/23 11:24 06/09/23 11:24 06/09/23 11:24 06/09/23 11:24 06/09/23 11:24 FiO2 45 06/08/23 23:01 Oxygen Flow Rate (L/min) 3 Oxygen Delivery Method Nasal Cannula Weight: 71.1 kg Body Mass Index (BMI) 26.9 Intake & Output: Intake and Output for Last 24 Hours 06/07/23 06/08/23 06/09/23 23:59 23:59 23:59 Intake Total 2046.75 / 2046.75 998.00 / 998.00 1361 / 1361 Output Total 3320 / 3320 950 / 1350 650 / 650 Balance -1273.25 / -1273.25 48.00 / -352.00 711 / 711 Lab / Micro Data 06/09/23 03:36 06/09/23 03:36 Labs: Laboratory Results - last 24 hr 06/07/23 : Fl Pathologist Comment Reviewed, Miscellaneous Cytology SEE PATHOLOGYREPORT 06/08/23 21:42: Hgb 9.2 L, Hct 30.3 L 06/09/23 03:36: WBC 15.1 H, RBC 2.92 L, Hgb 8.2 L, Hct 27.0 L, MCV 92.5, MCH 28.1, MCHC 30.4 L, RDW Std Deviation 43.1, RDW Coeff of Laly 12.9, Plt Count 350, MPV 10.4, Immature Gran % (Auto) 3.100 H, Neut % (Auto) 72.7 H, Lymph % (Auto) 13.9 L, Robertson % (Auto) 8.6, Eos % (Auto) 1.4, Baso % (Auto) 0.3, Absolute Neuts (auto) 11.0 H, Absolute Lymphs (auto) 2.09, Nucleated RBC % 0, Sodium 143, Potassium 3.5, Chloride 100, Carbon Dioxide 42.0 H, Anion Gap 1 L, BUN 30 H, Creatinine 0.40 L, Estim Creat Clear Calc 47.14, Est GFR (MDRD) Af Amer 207, EstGFR (MDRD) Non-Af 171, BUN/Creatinine Ratio 75.6 H, Glucose 89, Calcium 8.0 L, Magnesium 2.6 06/09/23 05:08: PT 14.4, INR 1.1, APTT 26.4 Micro: Microbiology 06/07/23 Unknown Fluid - Pleural (Lung) Gram Stain - Final 06/08/23 10:15 Stool Stool Occult Blood (ROSAURA) - Final Occult Blood Positive 06/02/23 10:47 Blood Culture (Wb) - Right Hand Blood Culture - Final No growth in 5 days. 06/02/23 09:26 Blood Culture (Wb) - Left Hand Blood Culture - Final No growth in 5 days. 06/02/23 10:34 Urine, Catheterized Urine Culture - Final Culture exhibits no growth. 06/03/23 09:15 Mucosa - Nose Coronavirus COVID-19 PCR - Final 06/02/23 10:34 Urine, Random Legionella Antigen - Final 06/02/23 10:34 Urine, Random Streptococcus pneumoniae Antigen (M - Final 06/02/23 11:22 Mucosa - Nasopharyngeal Respiratory Panel (PCR) - Final Rhythm Strip Rhythm Strip: Sinus Tach Rate: 120 Ectopy: None Physical Exam Narrative General alert oriented in no acute distress HEENT. Normocephalic atraumatic, pupils equal and reactive Respiratory reduced air entry bilaterally , no wheezing Cardiac S1-S2, regular rate and rhythm GI abdomen soft and nontender MSK no lower extremity edema Skin no rashes Neuro moves all extremities, no dysarthria, no facial droop Charges/Coding Visit Charges Inpatient E&M: 80748 Subs Hosp L3 06/09/23 1153 <Electronically signed by Pao Weeks MD> Cosigner Signature (if applicable): CC: ~ Signed [facility] Work Phone: 1(846) 786-613212-07-2023 Procedure [facility] 06-09-2023 Procedure [facility]12-06-2023 Consult note Author Ramon Antunez [facility] June 08, 2023 5:05pm Note Date/Time June 08, 2023 4 :53pm [facility] Medical Records Department [address] [place] [address] Consultation - GI 06/08/23 1653 MR#: [id number] Acct: [id number] Name: SNEHA CARDENAS Rep #:[id number] : 1955 68 From: Ramon Antunez DO PCP: Dr. Julio Draper MD Status:A DM IN Location: ICU CVICU20 2-1 HPI Consult Data Date of Consult: 06/08/23 HPI Narrative Reason for Consultation: GI bleeding HPI Narrative: SNEHA CARDENAS, is a 68 F with a PMH as outlined who presented via the ED on 06/02/2023 with a complaint of shortness of breath. She had been seen in the ED ~ 2 days prior to this admission and was diagnosed with pneumonia; she was sent home on antibiotics. However, she had been declining at home and hadnt even started the antibiotics she was sent on . She therefore came back to the ED due ot her worsening state. VItals on admission was UT of 118, temp of 100.9F, RR of 30 and BP of 97/85 after receiving fluids. CBC showed Hb of 11.9, wbc of 23.8 and platelets of 504. ABG showed pH of 7.25 at the oxygen of 90% pCO2 of 60. Chemistry was unremarkable. Urinalysis showed no evidence of UTI. COVID and flu test was negative. Chest x-ray showed small right pleural effusion with a right basilar infiltrate. She was hydrated with fluids and blood pressure subsequently came up.. She was placed on BiPAP and has been admitted to be managed for acute hypoxic respiratory failure due to community-acquired pneumonia. She complains of anxiety. She has been refusing bipap. She says she is scared ofusing the bipap for prolonged period. I was asked to see but has been decreasing hemoglobin. She is on anti coagulation. She also has been having some melanotic stools. Her Eliquis has been on hold since yesterday as she was undergoing thoracentesis. We will continue to hold. Her hemoglobin has dropped2 g. [facility] Medical History Anxiety Asthma Benign essential hypertension Benign essential tremor COPD (chronic obstructive pulmonary disease) Former tobacco use Migraines On home oxygen therapy Pneumonia due to COVID-19 virus Home Medications albuterol sulfate 90 mcg/actuation aerosol inhaler (Ventolin HFA) 2 puff inhalation Q4H PRN PRN Shortness Of Breath 08/28/15 [History Last Taken 11/30/22 10:00] montelukast 10 mg tablet 10 mg PO QHS ALLERGIES 02/25/18 [History Last Taken 11/29/22] fluticasone fur. 100 mcg-umeclid 62.5 mcg-vilant 25 mcg inhalat.powder (Trelegy Ellipta) 1 inh inhalation DAILY COPD 05/01/21 [History Last Taken 11/30/22] fluticasone propionate 50 mcg/actuation nasal spray,suspension 2 spray intranasal QHS ALLERGIES 05/01/21 [History Last Taken 11/28/22] levofloxacin 750 mg tablet 750 mg PO DAILY #7 tabs 12/03/22 [Rx Last Taken Unknown] prednisone 20 mg tablet 40 mg (2 x 20 mg) PO DAILY 7 days #14 tabs 12/03/22 [Rx Last Taken Unknown] oxycodone-acetaminophen 5 mg-325 mg tablet (Percocet) 1 tab PO Q6H PRN pain 4 days #14 tabs 06/01/23 [Rx Last Taken Unknown] Allergy/AdvReac Type Severity Reaction Status Date / Time cephalexin monohydrate Allergy Chest Verified 06/02/23 08:53 [From Keflex] tightness Surgical History H/O bilateral salpingectomy History of herniorrhaphy Hx of cholecystectomy Hx of tonsillectomy Social History adopted: Yes household members: family housing: house Smoking Status: Former smoker alcohol intake: never substance use type: does not use ROS Constitutional Constitutional: Reports chills, fatigue, fever(s), malaise and weakness; Denies anorexia Eyes Eyes: Denies change in vision ENT HEENT: Denies dysphagia, headache(s), loss taste/smell, sore throat or throat swelling Cardiovascular Cardiovascular: Reports palpitations; Denies chest pain, claudication, edema or paroxysmal nocturnal dyspnea Respiratory/Chest Respiratory/Chest: Reports cough, shortness of breath at rest and shortness of breath with exertion; Denies wheezing Gastrointestinal Gastrointestinal: Reports nausea; Denies abdominal pain, constipation, diarrhea or vomiting Genitourinary Genitourinary: Denies nocturia Musculoskeletal Musculoskeletal: Denies back pain, joint pain, joint stiffness or muscle weakness Integumentary Integumentary: Denies dry skin or jaundice Neurologic Neurologic: Denies confusion or focal weakness Physical Exam Narrative General alert oriented in no acute distress HEENT. Normocephalic atraumatic, pupils equal and reactive Respiratory reduced air entry bilaterally worse on the right, no wheezing Cardiac S1-S2, regular rate and rhythm GI abdomen soft and nontender MSK no lower extremity edema Skin no rashes Neuro moves all extremities, no dysarthria, no facial droop Lab / Micro Data 06/08/23 08:45 06/08/23 04:09 Labs: Laboratory Results - last 24 hr 06/07/23 : Fluid Source PLEURAL FLUID, Fluid Color YELLOW, Fluid Appearance SL CLDY, Fluid WBC 1.132, Fluid RBC 471, Fluid Tot Cell Count 1.132 H, Fld Polynuclear WBCs # 1.052, Fld Polynuclear WBCs % 92.9, Fluid Mononuclear WBCs 0.080, Fld Mononuclear WBCs % 7.1, Fl Pathologist Comment May follow, Fluid Glucose 80 H, Fluid Total Protein 4.1, Fluid LDH 3968, Fluid Comment 2 SEE COMMENT, Miscellaneous Cytology SEE PATHOLOGY REPORT 06/08/23 04:09: Sodium 142, Potassium 3.5, Chloride 97 L, Carbon Dioxide 44.0 H,Anion Gap 1 L, BUN 38 H, Creatinine 0.45 L, Estim Creat Clear Calc 47.14, Est GFR (MDRD) Af Amer 180, Est GFR (MDRD) Non-Af 149, BUN/Creatinine Ratio 85.0 H, Glucose 142 H, Calcium 8.6, Magnesium 2.7 H, Lactate Dehydrogenase 212 06/08/23 08:45: WBC 21.8 H, RBC 3.46 L, Hgb 9.8 L, Hct 31.8 L, MCV 91.9, MCH 28.3, MCHC 30.8 L, RDW Std Deviation 42.2, RDW Coeff of Laly 12.7, Plt Count 351,MPV 10.4, Immature Gran % (Auto) 2.100 H, Neut % (Auto) 87.6 H, Lymph % (Auto) 5.5 L, Robertson % (Auto) 4.2, Eos % (Auto) 0.2, Baso % (Auto) 0.4, Absolute Neuts (auto) 19.1 H, Absolute Lymphs (auto) 1.20, Nucleated RBC % 0 Micro: Microbiology 06/07/23 Unknown Fluid - Pleural (Lung) Gram Stain - Final 06/08/23 10:15 Stool Stool Occult Blood (ROSAURA) - Final Occult Blood Positive Rhythm Strip Rhythm Strip: Sinus Tach Rate: 120 Ectopy: None Assessment & Plan Assessment/Plan (1) COPD with acute exacerbation: (2) GI bleed: QUALIFIERS: GI bleed type/associated pathology: unspecified gastrointestinal hemorrhage type Qualified Code(s): K92.2 - Gastrointestinal hemorrhage, unspecified PLAN: Plan Assessment The patient has a known history of COPD and chronic hypoxemic respiratory failure with a baseline 3 L/min oxygen requirement. The patient appears to be in a state of exacerbation secondary to right lower lobe pneumonia. She underwent thoracentesis. She currently has what is believed to be an acute upperGI bleed. She will undergo an upper endoscopy to evaluate upper GI tract. She was explained alternatives, risk, benefits include not withstanding bleeding, infection, sepsis, perforation, need for emergent surgery and . She will have an ASA of 3. Charges/Coding Visit Charges Inpatient E&M: 91210 Init Hosp L3 06/08/23 7614 <Electronically signed by Ramon Friend DO> Cosigner Signature (if applicable): CC: SASH CLAMP OPERATOR-C Sheridan Jovel; Dr. Kapil Doyle MD; Dr. Adrian Nieves DO; Dr. Pao Weeks MD; Dr. Gabby Sutherland MD; Dr. Ford Graff MD; Dr. Lauren MD~ Signed [facility] Work Phone: [phone]) 773-129612-06-2023 Progress note Author Td Pillai [facility] June 08, 2023 4:34pm Note Date/Time June 08, 2023 4 :34pm [facility] Medical Records Department [address] [place] [address] Progress Note - Hospitalist 06/08/23 1627 MR#: [id number] Acct: [id number] Name: SNEHA CARDENAS Rep #:[id number] : 1955 68 From: Td Pillai DO PCP: Dr. Julio Draper MD Status:A DM IN Location: ICU CVICU 2-1 Reason for Visit Reason for Visit: Diagnoses Pneumonia, unspecified organism (06/02/23) Chronic obstructive pulmonary disease with (acute) exacerbation (06/02/23) Pleural effusion in other conditions classified elsewhere (06/02/23) Subjective Subjective Patient was seen and examined today, she is currently on 5 L nasal cannula oxygen, her hemoglobin this morning was 9.8, I wrote for a gastroenterology consultation regarding possible endoscopy. Objective Data Objective Data Vital Signs: Vital Signs Temp Pulse Resp BP Pulse Ox O2 Del Method O2 Flow Rate 96.0 F L 79 20 H 132/59 H 95 Nasal Cannula 5 06/08/23 15:47 06/08/23 15:47 06/08/23 15:47 06/08/23 15:47 06/08/23 15:47 06/08/23 15:47 06/08/23 15:47 FiO2 45 06/07/23 15:30 Oxygen Flow Rate (L/min) 5 Oxygen Delivery Method Nasal Cannula Weight: 71.1 kg Body Mass Index (BMI) 26.9 Intake & Output: Intake and Output for Last 24 Hours 06/06/23 06/07/23 06/08/23 23:59 23:59 23:59 Intake Total 835 / 865 2046.75 / 2046.75 640.25 / 640.25 Output Total 2225 / 3425 3320 / 3320 650 / 650 Balance -1390 / -2560 -1273.25 / -1273.25 -9.75 / -9.75 Lab / Micro Data 06/08/23 08:45 06/08/23 04:09 Labs: Laboratory Results - last 24 hr 06/07/23 : Fluid Source PLEURAL FLUID, Fluid Color YELLOW, Fluid Appearance SL CLDY, Fluid WBC 1.132, Fluid RBC 471, Fluid Tot Cell Count 1.132 H, Fld Polynuclear WBCs # 1.052, Fld Polynuclear WBCs % 92.9, Fluid Mononuclear WBCs 0.080, Fld Mononuclear WBCs % 7.1, Fl Pathologist Comment May follow, Fluid Glucose 80 H, Fluid Total Protein 4.1, Fluid LDH 3968, Fluid Comment 2 SEE COMMENT, Miscellaneous Cytology SEE PATHOLOGY REPORT 06/08/23 04:09: Sodium 142, Potassium 3.5, Chloride 97 L, Carbon Dioxide 44.0 H,Anion Gap 1 L, BUN 38 H, Creatinine 0.45 L, Estim Creat Clear Calc 47.14, Est GFR (MDRD) Af Amer 180, Est GFR (MDRD) Non-Af 149, BUN/Creatinine Ratio 85.0 H, Glucose 142 H, Calcium 8.6, Magnesium 2.7 H, Lactate Dehydrogenase 212 06/08/23 08:45: WBC 21.8 H, RBC 3.46 L, Hgb 9.8 L, Hct 31.8 L, MCV 91.9, MCH 28.3, MCHC 30.8 L, RDW Std Deviation 42.2, RDW Coeff of Laly 12.7, Plt Count 351,MPV 10.4, Immature Gran % (Auto) 2.100 H, Neut % (Auto) 87.6 H, Lymph % (Auto) 5.5 L, Robertson % (Auto) 4.2, Eos % (Auto) 0.2, Baso % (Auto) 0.4, Absolute Neuts (auto) 19.1 H, Absolute Lymphs (auto) 1.20, Nucleated RBC % 0 Micro: Microbiology 06/07/23 Unknown Fluid - Pleural (Lung) Gram Stain - Final 06/08/23 10:15 Stool Stool Occult Blood (ROSAURA) - Final Occult Blood Positive 06/02/23 10:47 Blood Culture (Wb) - Right Hand Blood Culture - Final No growth in 5 days. 06/02/23 09:26 Blood Culture (Wb) - Left Hand Blood Culture - Final No growth in 5 days. 06/02/23 10:34 Urine, Catheterized Urine Culture - Final Culture exhibits no growth. 06/03/23 09:15 Mucosa - Nose Coronavirus COVID-19 PCR - Final 06/02/23 10:34 Urine, Random Legionella Antigen - Final 06/02/23 10:34 Urine, Random Streptococcus pneumoniae Antigen (M - Final 06/02/23 11:22 Mucosa - Nasopharyngeal Respiratory Panel (PCR) - Final Rhythm Strip Rhythm Strip: Sinus Tach Rate: 120 Ectopy: None Physical Exam Const alert and no apparent distress Constitutional Narrative: Patient appears older than her stated age General Appearance: cooperative, well kempt and well developed Orientation / Consciousness: awake, oriented to person and oriented to place HEENT normocephalic, head/scalp atraumatic and moist oral mucous membranes Eyes PERRL, EOMs intact bilaterally and conjunctivae normal Neck supple, no JVD, thyroid normal and no carotid bruits General: trachea midline Resp normal respiratory effort, no retractions and no use of accessory muscles Resp Narrative: Breath sounds are distant bilaterally Auscultation: Negative for rales, rhonchi or wheezes Cardio regular rate, regular rhythm, S1 normal heart sound, S2 normal heart sound, no murmurs, no rub and no gallops GI normal to inspection, nondistended, normoactive bowel sounds, soft to palpation,non-tender and non-distended Extremity no clubbing, cyanosis or edema Skin no rashes or lesions noted General Skin Exam: no breakdown Neuro CN's II-XII intact bilaterally, moves all extremities, no focal motor deficits and no sensory deficits noted Sensorium / Orientation: awake, alert, oriented to person and oriented to place Speech: speech normal Psych affect normal Assessment & Plan Assessment/Plan (1) Community acquired pneumonia of right lower lobe of lung: PLAN: Plan 1. Sepsis secondary to right lower lobe community-acquired pneumonia-patient will continue on IV antibiotics, pulmonary medicine is participating in her care #2 acute on chronic combined respiratory failure secondary to chronic obstructive pulmonary disease and pneumonia-patient is currently on 5 L via nasal cannula, her home oxygen requirement appears to be 3 L/min, continue aerosol treatments, IV steroids and antibiotics #3 acute anemia-etiology unclear-occult GI bleeding will need to be ruled out, gastroenterology will see the patient #4 chronic obstructive pulmonary disease-complicates care, medical course, recovery, and prognosis Total clinical time spent by myself addressing the patient's medical issues, reviewing all of her data, and collaborating with patient's care team: 35 minutes Charges/Coding Visit Charges Inpatient E&M: 27733 Subs Hosp L2 06/08/23 1634 <Electronically signed by Td Pillai DO> Cosigner Signature (if applicable): CC: ~ Signed [facility] Work Phone: 1([phone]) 125-139812-06-2023 Progress note Author Pao Weeks [facility] June 08, 2023 9:56am Note Date/Time June 08, 2023 9 :50am [facility] Medical Records Department [address] [place] [id number] Progress Note - Linting Machine Operator 06/08/23 0944 MR#: [id number] Acct: [id number] Name: SNEHA CARDENAS Rep #:[id number] : 1955 68 From: Pao Mckeon PCP: Dr. Julio Draper MD Status:A DM IN Location: ICU CVICU20 2-1 Assessment & Plan Assessment/Plan (1) COPD with acute exacerbation: PLAN: Plan Assessment * Acute on chronic hypoxic respiratory failure with hypercapnia (ABG on admission showed pH of 7.25 and PCO2 of 60) * Right pleural effusion exudative and neutrophilic predominant likely related to pneumonia * Acute blood loss anemia likely secondary to GI bleed * COPD exacerbation * Sepsis secondary to right lower lobe pneumonia * History of tobacco use (~[id number] )quit 10 years ago * Abnormal chest CT * A fib Plan -Patient's respiratory status much improved after thoracentesis yesterday. She had a total of 460 C of cloudy jose fluid moved. Initial analysis suggestive of exudative fluid concern for infection as fluid LDH family elevated at 3968. Cultures are pending. We will repeat chest x-ray tomorrow monitor for recurrence. If indeed she does have recurrence and given the appearance of pleural effusion on ultrasound with septations noted she will likely need a chest tube with tPA dornase and thus will require transfer. -However developed melena overnight and has had 2 dark bowel movements. Her Eliquis has been on hold since yesterday as she was undergoing thoracentesis. We will continue to hold. Her hemoglobin has dropped 2 g. ? Started on Protonix IV twice daily. Consulted GI ?Switch to p.o. prednisone. Continue scheduled DuoNebs ?Continue to follow cultures. She remains on Merrem. She will likely require at least 2 to 3 weeks of antibiotics given her scan findings and development ofexudative effusion. -Viral panel is negative. Legionella urine antigen is negative. MRSA swab is negative. -Discussed chest CT scan findings with the patient. We discussed that she will need repeat CT scan in 6 to 8 weeks to ensure resolution. -Patient quit smoking 10 years ago. Encouraged to continue smoking cessation. -PT OT -DVT prophylaxis SCDs Subjective Subjective Reports improvement of her breathing after thoracentesis. She is off Airvo and she is currently 6 L via nasal cannula. She had a couple of melanotic stools overnight. Her Eliquis was held yesterday for thoracentesis. We will continue to hold it. Objective Data Objective Data Vital Signs: Vital Signs Temp Pulse Resp BP Pulse Ox O2 Del Method O2 Flow Rate 36.3 C L 84 23 H 151/67 H 94 Nasal Cannula 5 06/08/23 09:00 06/08/23 09:00 06/08/23 09:00 06/08/23 09:00 06/08/23 09:00 06/08/23 09:00 06/08/23 09:00 FiO2 45 06/07/23 15:30 Oxygen Flow Rate (L/min) 5 Oxygen Delivery Method Nasal Cannula Weight: 71.1 kg Body Mass Index (BMI) 26.9 Intake & Output: Intake and Output for Last 24 Hours 06/06/23 06/07/23 06/08/23 23:59 23:59 23:59 Intake Total 835 / 865 2046.75 / 2046.75 179.50 / 179.50 Output Total 2225 / 3425 3320 / 3320 350 / 350 Balance -1390 / -2560 -1273.25 / -1273.25 -170.50 / -170.50 Lab / Micro Data 06/08/23 08:45 06/08/23 04:09 Labs: Laboratory Results - last 24 hr 06/07/23 : Fluid Source PLEURAL FLUID, Fluid Color YELLOW, Fluid Appearance SL CLDY, Fluid WBC 1.132, Fluid RBC 471, Fluid Tot Cell Count 1.132 H, Fld Polynuclear WBCs # 1.052, Fld Polynuclear WBCs % 92.9, Fluid Mononuclear WBCs 0.080, Fld Mononuclear WBCs % 7.1, Fl Pathologist Comment May follow, Fluid Glucose 80 H, Fluid Total Protein 4.1, Fluid LDH 3968, Fluid Comment 2 SEE COMMENT 06/08/23 04:09: Sodium 142, Potassium 3.5, Chloride 97 L, Carbon Dioxide 44.0 H,Anion Gap 1 L, BUN 38 H, Creatinine 0.45 L, Estim Creat Clear Calc 47.14, Est GFR (MDRD) Af Amer 180, Est GFR (MDRD) Non-Af 149, BUN/Creatinine Ratio 85.0 H, Glucose 142 H, Calcium 8.6, Magnesium 2.7 H, Lactate Dehydrogenase 212 06/08/23 08:45: WBC 21.8 H, RBC 3.46 L, Hgb 9.8 L, Hct 31.8 L, MCV 91.9, MCH 28.3, MCHC 30.8 L, RDW Std Deviation 42.2, RDW Coeff of Laly 12.7, Plt Count 351,MPV 10.4, Immature Gran % (Auto) 2.100 H, Neut % (Auto) 87.6 H, Lymph % (Auto) 5.5 L, Robertson % (Auto) 4.2, Eos % (Auto) 0.2, Baso % (Auto) 0.4, Absolute Neuts (auto) 19.1 H, Absolute Lymphs (auto) 1.20, Nucleated RBC % 0 Micro: Microbiology 06/02/23 10:47 Blood Culture (Wb) - Right Hand Blood Culture - Final No growth in 5 days. 06/02/23 09:26 Blood Culture (Wb) - Left Hand Blood Culture - Final No growth in 5 days. 06/02/23 10:34 Urine, Catheterized Urine Culture - Final Culture exhibits no growth. 06/03/23 09:15 Mucosa - Nose Coronavirus COVID-19 PCR - Final 06/02/23 10:34 Urine, Random Legionella Antigen - Final 06/02/23 10:34 Urine, Random Streptococcus pneumoniae Antigen (M - Final 06/02/23 11:22 Mucosa - Nasopharyngeal Respiratory Panel (PCR) - Final Radiography Diagnostic Testing: Radiology Impression Thoracentesis Ultrasound 06/07/23 10:50 IMPRESSION: Ultrasound-guided right thoracentesis. Electronically Signed: Michael Gaxiola MD at 15:26 EST , Chest X-Ray 06/07/23 14:00 IMPRESSION: Status post right thoracentesis. No evidence of pneumothorax. Electronically Signed: Michael Gaxiola MD at 14:28 EST , Rhythm Strip Rhythm Strip: Sinus Tach Rate: 120 Ectopy: None Physical Exam Narrative General alert oriented in no acute distress HEENT. Normocephalic atraumatic, pupils equal and reactive Respiratory reduced air entry bilaterally worse on the right, no wheezing Cardiac S1-S2, regular rate and rhythm GI abdomen soft and nontender MSK no lower extremity edema Skin no rashes Neuro moves all extremities, no dysarthria, no facial droop Charges/Coding Visit Charges Inpatient E&M: 87284 Subs Hosp L3 06/08/23 0956 <Electronically signed by Pao Weeks MD> Cosigner Signature (if applicable): CC: ~ Signed [facility] Work Phone: 1(115) 420-637312-05-2023 Progress note Author [facility]by [facility] June 07, 2023 3:39pm Note Date/Time June 07, 2023 1 1:34am [facility] Medical Records Department [address] [place] [address] Progress Note 06/07/231124 MR#: [id number] Acct: [id number] Name: SNEHA CARDENAS Rep #:[id number] : 1955 68 From: Gabby Sutherland MD PCP: Dr. Julio Draper MD Status:A DM IN Location: ICU CVICU20 2-1 Subjective Subjective Patient seen and examined. She complains of anxiety. She has been refusing bipap. She says she is scared of using the bipap for prolonged period. She denies any chest pain, palpitations, dizziness, nausea, vomiting or any other symptoms. REveiw of systems is otherwise negative. Objective Data Objective Data Vital Signs: Vital Signs Temp Pulse Resp BP Pulse Ox O2 Del Method O2 Flow Rate 99.2 F H 71 17 157/67 H 93 Airvo 60 06/07/23 06:00 06/07/23 06:00 06/07/23 06:00 06/07/23 06:00 06/07/23 06:00 06/07/23 06:00 06/07/23 03:00 FiO2 35 06/07/23 03:00 Oxygen Flow Rate (L/min) 60 Oxygen Delivery Method Airvo Weight: 165 lb 12.602 oz Body Mass Index (BMI) 28.4 Intake & Output: Intake and Output for Last 24 Hours 06/05/23 06/06/23 06/07/23 23:59 23:59 23:59 Intake Total 2009 835 / 865 680 / 680 Output Total 3900 / 3900 2225 / 3425 1500 / 1500 Balance -1890 / -1890 -1390 / -2560 -820 / -820 Lab / Micro Data 06/07/23 04:45 06/07/23 04:45 Labs: Laboratory Results - last 24 hr 06/04/23 05:55: Diff Path Review Reviewed 06/05/23 12:55: Diff Path Review Reviewed 06/07/23 01:00: Vancomycin Trough 13.4 06/07/23 04:45: WBC 23.0 H, RBC 4.25, Hgb 11.9 L, Hct 38.1, MCV 89.6, MCH 28.0, MCHC 31.2 L, RDW Std Deviation 42.1, RDW Coeff of Laly 12.7, Plt Count 403, MPV 10.0, Immature Gran % (Auto) 1.400 H, Neut % (Auto) 87.8 H, Lymph % (Auto) 5.4 L, Robertson % (Auto) 4.8, Eos % (Auto) 0.1, Baso % (Auto) 0.5, Absolute Neuts (auto) 20.2 H, Absolute Lymphs (auto) 1.24, Nucleated RBC % 0, Differential Comment SCANNED, Sodium 141, Potassium 3.3 L, Chloride 96 L, Carbon Dioxide 43.0 H, Anion Gap 2 L, BUN 35 H, Creatinine 0.54 L, Estim Creat Clear Calc 47.14, Est GFR(MDRD) Af Amer 144, Est GFR (MDRD) Non-Af 119, BUN/Creatinine Ratio 64.6 H, Glucose 146 H, Calcium 8.8, Magnesium 2.6 06/07/23 05:23: Ionized Calcium 4.69 Micro: Microbiology 06/02/23 09:26 Blood Culture (Wb) - Left Hand Blood Culture - Final No growth in 5 days. 06/02/23 10:34 Urine, Catheterized Urine Culture - Final Culture exhibits no growth. 06/02/23 10:47 Blood Culture (Wb) - Right Hand Blood Culture - Preliminary No growth in 48 hours. 06/03/23 09:15 Mucosa - Nose Coronavirus COVID-19 PCR - Final 06/02/23 10:34 Urine, Random Legionella Antigen - Final 06/02/23 10:34 Urine, Random Streptococcus pneumoniae Antigen (M - Final 06/02/23 11:22 Mucosa - Nasopharyngeal Respiratory Panel (PCR) - Final Radiography Diagnostic Testing: Radiology Impression Chest X-Ray 06/07/23 07:40 IMPRESSION: Moderate right pleural effusion with overlying atelectasis. Electronically Signed: Deepak Small MD at 8:52 EST , Rhythm Strip Rhythm Strip: Sinus Tach Rate: 120 Ectopy: None Physical Exam Const alert and oriented x3 Constitutional Narrative: frail. remains on AirVo General Appearance: cooperative HEENT normocephalic and head/scalp atraumatic Eyes PERRL and EOMs intact bilaterally Neck no lymphadenopathy and supple Lymph Lymphatic: no lymphadenopathy noted Resp Resp Narrative: diminished breath sounds bibasally, no wheezes. remains on AirVo Cardio regular rate, regular rhythm, S1 normal heart sound, S2 normal heart sound and no murmurs GI normal to inspection, nondistended, normoactive bowel sounds, soft to palpation,non-tender and non-distended Extremity normal capillary refill, no clubbing, cyanosis or edema and no calf tenderness General Extremity: no tenderness to palpation of joints or extremities Skin General Skin Exam: no breakdown Neuro CN's II-XII intact bilaterally, no focal motor deficits and no sensory deficits noted Motor Exam: strength 5/5 throughout and general weakness Psych thought process normal Mood & Affect: anxious Assessment & Plan Assessment/Plan (1) Parapneumonic effusion: (2) Community acquired pneumonia of right lower lobe of lung: PLAN: Plan #Acute on chronic hypoxic respiratory failure due to community acquired pneumonia * still on airvo. Has been refusing BIPAP * wbc is down to 23 today. * remains on meropenem * COVID and flu negative * titrate oxygen to maintain sats >90% * breathing treatment with bronchodilators * Blood cultures negative after 48 hours. Urine for strep and Legionella negative and urine culture also negative. COVID PCR was negative. * now in negative balance by 1.038L * #Hypokalemia: potassium is 3.3 today. Will replace and trend. #Acute on chronic hypoxic respiratory failure due to acute COPD exacerbation with hypoxia and hypercapnia * Does have known COPD. * on IV Solu-Medrol. Breathing treatments and bronchodilators. * on AirVo; encouraged to be complaint with BIPAP. * Titrate oxygen to maintain saturation above 90% * critical care on board * #Afib * on metoprolol * on eliquis for DVT prophylaxis * 2D echo showed EF of 65% with stage I diastolic dysfunction and no regional wall motion abnormalities noted. Valves were normal. * * # Nicotine dependence: Counseled to quit. Nicotine patch 21 mg daily. 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 Julio Draper MD Status:A DM IN Location: ICU CVICU20 2-1 Assessment & Plan Assessment/Plan (1) COPD with acute exacerbation: PLAN: Plan Assessment * Acute on chronic hypoxic respiratory failure with hypercapnia (ABG on admission showed pH of 7.25 and PCO2 of 60) * Right pleural effusion and concerning for parapneumonic effusion versus empyema given pneumonia * COPD exacerbation * Sepsis secondary to right lower lobe pneumonia * History of tobacco use (~41-lbkm-imsp )quit 10 years ago * Abnormal chest CT * A fib Plan -Patient remains short of breath with exertion she is on Airvo at 60 L and 40%. She is usually on 3 L nasal cannula. -She did not wear her BiPAP last night. Discussed with the patient and RT. We will try different mask. She will also try to wear the BiPAP during the day to get her more accustomed to it. -BedSide ultrasound today showed moderate-size right pleural effusion with concern for septations. Attempted to locate pigtail catheter unable to locate one. Discussed with IR they do not usually place pigtails. will proceed with thoracentesis and send fluid for cultures and cytology. If pleural effusion remains persistent or recurs will discuss different options. -Wean O2 as tolerated -Reduce Solu-Medrol to every 8 and scheduled DuoNebs -Viral panel is negative. Legionella urine antigen is negative. MRSA swab is negative. DC vancomycin continue Merrem -Discussed chest CT scan findings. We discussed that she will need repeat CT scan in 6 to 8 weeks to ensure resolution. -Patient quit smoking 10 years ago. Encouraged to continue smoking cessation. -PT OT -DVT prophylaxis pt is on home eliquis Subjective Subjective She remains on Airvo at 60 L and 40%. She did not wear her BiPAP last night. Discussed with the patient and RT. We will try different mask. She will also try to wear the BiPAP during the day to get her more accustomed to it. Objective Data Objective Data Vital Signs: Vital Signs Temp Pulse Resp BP Pulse Ox O2 Del Method O2 Flow Rate 37.3 C H 71 17 157/67 H 93 Airvo 60 06/07/23 06:00 06/07/23 06:00 06/07/23 06:00 06/07/23 06:00 06/07/23 06:00 06/07/23 06:00 06/07/23 03:00 FiO2 35 06/07/23 03:00 Oxygen Flow Rate (L/min) 60 Oxygen Delivery Method Airvo Weight: 75.2 kg Body Mass Index (BMI) 28.4 Intake & Output: Intake and Output for Last 24 Hours 06/05/23 06/06/23 06/07/23 23:59 23:59 23:59 Intake Total 2009 835 / 865 680 / 680 Output Total 3900 / 3900 2225 / 3425 1500 / 1500 Balance -1890 / -1890 -1390 / -2560 -820 / -820 Lab / Micro Data 06/07/23 04:45 06/07/23 04:45 Labs: Laboratory Results - last 24 hr 06/04/23 05:55: Diff Path Review Reviewed 06/05/23 12:55: Diff Path Review Reviewed 06/07/23 01:00: Vancomycin Trough 13.4 06/07/23 04:45: WBC 23.0 H, RBC 4.25, Hgb 11.9 L, Hct 38.1, MCV 89.6, MCH 28.0, MCHC 31.2 L, RDW Std Deviation 42.1, RDW Coeff of Laly 12.7, Plt Count 403, MPV 10.0, Immature Gran % (Auto) 1.400 H, Neut % (Auto) 87.8 H, Lymph % (Auto) 5.4 L, Robertson % (Auto) 4.8, Eos % (Auto) 0.1, Baso % (Auto) 0.5, Absolute Neuts (auto) 20.2 H, Absolute Lymphs (auto) 1.24, Nucleated RBC % 0, Differential Comment SCANNED, Sodium 141, Potassium 3.3 L, Chloride 96 L, Carbon Dioxide 43.0 H, Anion Gap 2 L, BUN 35 H, Creatinine 0.54 L, Estim Creat Clear Calc 47.14, Est GFR (MDRD) Af Amer 144, Est GFR (MDRD) Non-Af 119, BUN/Creatinine Ratio 64.6 H, Glucose 146 H, Calcium 8.8, Magnesium 2.6 06/07/23 05:23: Ionized Calcium 4.69 Micro: Microbiology 06/02/23 09:26 Blood Culture (Wb) - Left Hand Blood Culture - Final No growth in 5 days. 06/02/23 10:34 Urine, Catheterized Urine Culture - Final Culture exhibits no growth. 06/02/23 10:47 Blood Culture (Wb) - Right Hand Blood Culture - Preliminary No growth in 48 hours. 06/03/23 09:15 Mucosa - Nose Coronavirus COVID-19 PCR - Final 06/02/23 10:34 Urine, Random Legionella Antigen - Final 06/02/23 10:34 Urine, Random Streptococcus pneumoniae Antigen (M - Final 06/02/23 11:22 Mucosa - Nasopharyngeal Respiratory Panel (PCR) - Final Radiography Diagnostic Testing: Radiology Impression Chest X-Ray 06/07/23 07:40 IMPRESSION: Moderate right pleural effusion with overlying atelectasis. Electronically Signed: Deepak Small MD at 8:52 EST Reading Location ID and State: Critical access hospital / [place] Tel , Service support , Rhythm Strip Rhythm Strip: Sinus Tach Rate: 120 Ectopy: None Physical Exam Narrative General alert oriented in no acute distress HEENT. Normocephalic atraumatic, pupils equal and reactive Respiratory reduced air entry bilaterally worse on the right, no wheezing Cardiac S1-S2, regular rate and rhythm GI abdomen soft and nontender MSK no lower extremity edema Skin no rashes Neuro moves all extremities, no dysarthria, no facial droop Chest inspection of chest normal Charges/Coding Visit Charges Inpatient E&M: 30331 Subs Hosp L3 06/07/23 1104 <Electronically signed by Pao Weeks MD> Cosigner Signature (if applicable): CC: ~ Signed [facility] Work Phone: [phone]) 837-642012-05-2023 Consult note Author Cash Lovett [facility] June 07, 2023 1:54am Note Date/Time June 07, 2023 1 :55am [facility] Medical Records Department [address] [place] [address] Pharmacokinetic/Renal -Consult 06/07/23 0153 MR#: [id number] Acct: [id number] Name: SNEHA CARDENAS Rep #:[id number] : 1955 68 From: Cash Montes od PCP: Dr. Julio Draper MD Status:A DM IN Y Location: ICU CVICU20 2-1 Consult Antibiotic Management Pharmacy has been consulted to manage selected antiobiotic: Vancomycin Type of Intervention Type of Consult: Follow-up Labs Labs: Sodium 142 mmol/L (136-145) 06/06/23 03:20 Potassium 3.6 mmol/L (3.5-5.1) 06/06/23 03:20 Chloride 101 mmol/L (98-107) 06/06/23 03:20 Carbon Dioxide 39.0 mmol/L (21.0-32.0) H 06/06/23 03:20 Anion Gap 2 (5-15) L 06/06/23 03:20 BUN 34 mg/dL (7-18) H 06/06/23 03:20 Creatinine 0.61 mg/dL (0.55-1.02) 06/06/23 03:20 Est GFR (MDRD) Af Amer 127 mL/min (>60) 06/06/23 03:20 Est GFR (MDRD) Non-Af 105 mL/min (>60) 06/06/23 03:20 BUN/Creatinine Ratio 56.1 RATIO (10-20) H 06/06/23 03:20 Glucose 134 mg/dL (74-106) H 06/06/23 03:20 Vancomycin Trough 13.4 ug/mL (5.0-15.0) 06/07/23 01:00 Microbiology Microbiology: Microbiology 06/02/23 10:34 Urine, Catheterized Urine Culture - Final Culture exhibits no growth. 06/02/23 10:47 Blood Culture (Wb) - Right Hand Blood Culture - Preliminary No growth in 48 hours. 06/02/23 09:26 Blood Culture (Wb) - Left Hand Blood Culture - Preliminary No growth in 48 hours. 06/03/23 09:15 Mucosa - Nose Coronavirus COVID-19 PCR - Final 06/02/23 10:34 Urine, Random Legionella Antigen - Final 06/02/23 10:34 Urine, Random Streptococcus pneumoniae Antigen (M - Final 06/02/23 11:22 Mucosa - Nasopharyngeal Respiratory Panel (PCR) - Final Goal Trough Goal Trough: 15-20 mcg/mL Pharmacy Plan for Drug Dosing Pharmacy Plan for Drug Dosing: Pharmacy Service will continue to monitor and adjust dosing as required. TROUGH 13.4 INCREASE TO 1500MG Q12H AND FOLLOW UP TROUGH PRIOR TO 4TH DOSE Follow-Up Labs Follow-Up Labs: Trough: Vancomycin Date/Time Labs Ordered Labs to be done on [date and time ordered]: 06/08 @ 1300 06/07/23 0154 <Electronically signed by Cash barrios> Date _ Cash Lovett Cosigner Signature (if applicable): Date CC: ~ Signed [facility] Work Phone: 1(790) 130-556012-04-2023 Progress note Author [facility] June 06, 2023 3:45pm Note Date/Time June 06, 2023 1 2:19pm [facility] Medical Records Department [address] [place] [address] Progress Note 06/06/23 1215 MR#: [id number] Acct: [id number] Name: SNEHA CARDENAS Rep #:[id number] : 1955 68 From: Gabby Sutherland MD PCP: Dr. Julio Draper MD Status:A DM IN Location: ICU CVICU20 2-1 Subjective Subjective Patient seen and examined. She had no active complaints. She is still on AirVo. She is still coughing, though it is not productive. Review of systems is otherwise negative. Objective Data Objective Data Vital Signs: Vital Signs Temp Pulse Resp BP Pulse Ox O2 Del Method O2 Flow Rate 99.7 F H 79 22 H 159/83 H 94 Bi-pap 60 06/06/23 02:00 06/06/23 11:30 06/06/23 11:30 06/06/23 08:34 06/06/23 11:30 06/06/23 02:00 06/06/23 10:18 FiO2 32 06/06/23 11:30 Oxygen Flow Rate (L/min) 60 Oxygen Delivery Method Bi-pap Weight: 165 lb 12.602 oz Body Mass Index (BMI) 28.4 Intake & Output: Intake and Output for Last 24 Hours 06/04/23 06/05/23 06/06/23 23:59 23:59 23:59 Intake Total 1516.25 / 1636.25 2009 515 / 515 Output Total 900 / 1100 3900 / 3900 350 / 350 Balance 616.25 / 536.25 -1890 / -1890 165 / 165 Lab / Micro Data 06/06/23 03:20 06/06/23 03:20 Labs: Laboratory Results - last 24 hr 06/05/23 12:55: WBC 31.6 H*, RBC 3.89 L, Hgb 11.1 L, Hct 35.3 L, MCV 90.7, MCH 28.5, MCHC 31.4 L, RDW Std Deviation 43.3, RDW Coeff of Laly 13.0, Plt Count 440,MPV 10.0, Immature Gran % (Auto) 2.000 H, Neut % (Auto) 91.2 H, Lymph % (Auto) 3.5 L, Robertson % (Auto) 3.3, Eos % (Auto) 0.0, Baso % (Auto) 0.0, Absolute Neuts (auto) 28.8 H, Absolute Lymphs (auto) 1.12, Nucleated RBC % 0, Differential Comment SCANNED, Diff Path Review November, Sodium 142, Potassium 4.0, Chloride 106, Carbon Dioxide 36.0 H, Anion Gap 0 L, BUN 37 H, Creatinine 0.63, Estim Creat Clear Calc 47.14, Est GFR (MDRD) Af Amer 121, Est GFR (MDRD) Non-Af 100, BUN/Creatinine Ratio 58.6 H, Glucose 177 H, Calcium 9.5 06/06/23 03:20: WBC 25.9 H, RBC 3.98 L, Hgb 11.2 L, Hct 36.2 L, MCV 91.0, MCH 28.1, MCHC 30.9 L, RDW Std Deviation 42.5, RDW Coeff of Laly 12.7, Plt Count 437,MPV 10.2, Immature Gran % (Auto) 1.700 H, Neut % (Auto) 88.9 H, Lymph % (Auto) 4.7 L, Robertson % (Auto) 4.0, Eos % (Auto) 0.2, Baso % (Auto) 0.5, Absolute Neuts (auto) 23.0 H, Absolute Lymphs (auto) 1.21, Nucleated RBC % 0, Differential Comment SCANNED, Sodium 142, Potassium 3.6, Chloride 101, Carbon Dioxide 39.0 H,Anion Gap 2 L, BUN 34 H, Creatinine 0.61, Estim Creat Clear Calc 47.14, Est GFR (MDRD) Af Amer 127, Est GFR (MDRD) Non-Af 105, BUN/Creatinine Ratio 56.1 H, Glucose 134 H, Calcium 9.0 Micro: Microbiology 06/02/23 10:34 Urine, Catheterized Urine Culture - Final Culture exhibits no growth. 06/02/23 10:47 Blood Culture (Wb) - Right Hand Blood Culture - Preliminary No growth in 48 hours. 06/02/23 09:26 Blood Culture (Wb) - Left Hand Blood Culture - Preliminary No growth in 48 hours. 06/03/23 09:15 Mucosa - Nose Coronavirus COVID-19 PCR - Final 06/02/23 10:34 Urine, Random Legionella Antigen - Final 06/02/23 10:34 Urine, Random Streptococcus pneumoniae Antigen (M - Final 06/02/23 11:22 Mucosa - Nasopharyngeal Respiratory Panel (PCR) - Final Rhythm Strip Rhythm Strip: Sinus Tach Rate: 120 Ectopy: None Physical Exam Const alert and oriented x3 Constitutional Narrative: frail.on AirVo General Appearance: cooperative HEENT normocephalic and head/scalp atraumatic Eyes PERRL and EOMs intact bilaterally Neck no lymphadenopathy and supple Lymph Lymphatic: no lymphadenopathy noted Resp Resp Narrative: diminished breath sounds bibasally, no wheezes. on AirVo Cardio regular rate, regular rhythm, S1 normal heart sound, S2 normal heart sound and no murmurs Cardio Narrative: tachypneic GI normal to inspection, nondistended, normoactive bowel sounds, soft to palpation,non-tender and non-distended Extremity normal capillary refill, no clubbing, cyanosis or edema and no calf tenderness General Extremity: no tenderness to palpation of joints or extremities Skin General Skin Exam: no breakdown Neuro CN's II-XII intact bilaterally, no focal motor deficits and no sensory deficits noted Motor Exam: strength 5/5 throughout and general weakness Psych thought process normal Mood & Affect: anxious and flat affect Assessment & Plan Assessment/Plan (1) Parapneumonic effusion: (2) Community acquired pneumonia of right lower lobe of lung: PLAN: Plan #Acute on chronic hypoxic respiratory failure due to community acquired pneumonia * still on airvo. * wbc is down to 25 today. * on meropenem * COVID and flu negative * titrate oxygen to maintain sats >90% * breathing treatment with bronchodilators * Blood cultures negative after 48 hours. Urine for strep and Legionella negative and urine culture also negative. COVID PCR was negative. * In positive fluid balance by 1336mls. continue diuresing with IV lasix. * #Hypokalemia: potassium is 3.6. Will monitor #Acute on chronic hypoxic respiratory failure due to acute COPD exacerbation with hypoxia and hypercapnia * Does have known COPD. * on IV Solu-Medrol. Breathing treatments and bronchodilators. * on AirVo * Titrate oxygen to maintain saturation above 90% * critical care on board * #Afib * on metoprolol * on eliquis for DVT prophylaxis * 2D echo showed EF of 65% with stage I diastolic dysfunction and no regional wall motion abnormalities noted. Valves were normal. * * # Nicotine dependence: Counseled to quit. Nicotine patch 21 mg daily. DVT Prophylaxis: on eliquis CODE STATUS: Full code * Charges/Coding Visit Charges Inpatient E&M: 65310 Subs Hosp L2 06/06/23 6116 <Electronically signed by Gabby Sutherland MD> Gabby Sutherland MD Cosigner Signature (if applicable): CC: ~ Signed [facility] Work Phone: 1(491) 441-368912-04-2023 Progress note Author Pao Weeks [facility] June 06, 2023 11:53am Note Date/Time June 06, 2023 1 1:53am [facility] Medical Records Department [address] [place] [address] [place] [address] Progress Note - Linting Machine Operator 06/06/23 1141 MR#: [id number] Acct: [id number] Name: SNEHA CARDENAS Rep #:[id number] : 1955 68 From: Pao Mckeon PCP: Dr. Julio Draper MD Status:A DM IN Location: ICU CVICU20 2-1 Assessment & Plan Assessment/Plan (1) COPD with acute exacerbation: PLAN: Plan Assessment * Acute on chronic hypoxic respiratory failure with hypercapnia (ABG on admission showed pH of 7.25 and PCO2 of 60) * COPD exacerbation * Sepsis secondary to right lower lobe pneumonia * History of tobacco use (~15-jmkl-yhst )quit 10 years ago * Abnormal chest CT * A fib Plan -Patient remains short of breath with exertion she is on 7 L via nasal cannula. She is usually on 3 L nasal cannula. -Continue NIPPV support at night. Discussed with the patient importance of NIPPV use given her COPD exacerbation and CO2 retention. -Wean O2 as tolerated -Continue Solu-Medrol and scheduled DuoNebs -Viral panel is negative. Legionella urine antigen is negative. MRSA swab is negative. DC vancomycin continue Merrem -Discussed chest CT scan findings. We discussed that she will need repeat CT scan in 6 to 8 weeks to ensure resolution. -Patient quit smoking 10 years ago. Encouraged to continue smoking cessation. -PT OT -DVT prophylaxis pt is on home eliquis Subjective Subjective She continues to have shortness of breath she is down to 7 L. Encouraged to useher BiPAP at night. Objective Data Objective Data Vital Signs: Vital Signs Temp Pulse Resp BP Pulse Ox O2 Del Method O2 Flow Rate 37.6 C H 79 22 H 159/83 H 94 Bi-pap 60 06/06/23 02:00 06/06/23 11:30 06/06/23 11:30 06/06/23 08:34 06/06/23 11:30 06/06/23 02:00 06/06/23 10:18 FiO2 32 06/06/23 11:30 Oxygen Flow Rate (L/min) 60 Oxygen Delivery Method Bi-pap Weight: 75.2 kg Body Mass Index (BMI) 28.4 Intake & Output: Intake and Output for Last 24 Hours 06/04/23 06/05/23 06/06/23 23:59 23:59 23:59 Intake Total 1516.25 / 1636.25 2009 515 / 515 Output Total 900 / 1100 3900 / 3900 350 / 350 Balance 616.25 / 536.25 -1890 / -1890 165 / 165 Lab / Micro Data 06/06/23 03:20 06/06/23 03:20 Labs: Laboratory Results - last 24 hr 06/05/23 11:30: Vancomycin Trough 17.1 H 06/05/23 12:55: WBC 31.6 H*, RBC 3.89 L, Hgb 11.1 L, Hct 35.3 L, MCV 90.7, MCH 28.5, MCHC 31.4 L, RDW Std Deviation 43.3, RDW Coeff of Laly 13.0, Plt Count 440,MPV 10.0, Immature Gran % (Auto) 2.000 H, Neut % (Auto) 91.2 H, Lymph % (Auto) 3.5 L, Robertson % (Auto) 3.3, Eos % (Auto) 0.0, Baso % (Auto) 0.0, Absolute Neuts (auto) 28.8 H, Absolute Lymphs (auto) 1.12, Nucleated RBC % 0, Differential Comment SCANNED, Diff Path Review November, Sodium 142, Potassium 4.0, Chloride 106, Carbon Dioxide 36.0 H, Anion Gap 0 L, BUN 37 H, Creatinine 0.63, Estim Creat Clear Calc 47.14, Est GFR (MDRD) Af Amer 121, Est GFR (MDRD) Non-Af 100, BUN/Creatinine Ratio 58.6 H, Glucose 177 H, Calcium 9.5 06/06/23 03:20: WBC 25.9 H, RBC 3.98 L, Hgb 11.2 L, Hct 36.2 L, MCV 91.0, MCH 28.1, MCHC 30.9 L, RDW Std Deviation 42.5, RDW Coeff of Laly 12.7, Plt Count 437,MPV 10.2, Immature Gran % (Auto) 1.700 H, Neut % (Auto) 88.9 H, Lymph % (Auto) 4.7 L, Robertson % (Auto) 4.0, Eos % (Auto) 0.2, Baso % (Auto) 0.5, Absolute Neuts (auto) 23.0 H, Absolute Lymphs (auto) 1.21, Nucleated RBC % 0, Differential Comment SCANNED, Sodium 142, Potassium 3.6, Chloride 101, Carbon Dioxide 39.0 H,Anion Gap 2 L, BUN 34 H, Creatinine 0.61, Estim Creat Clear Calc 47.14, Est GFR (MDRD) Af Amer 127, Est GFR (MDRD) Non-Af 105, BUN/Creatinine Ratio 56.1 H, Glucose 134 H, Calcium 9.0 Micro: Microbiology 06/02/23 10:34 Urine, Catheterized Urine Culture - Final Culture exhibits no growth. 06/02/23 10:47 Blood Culture (Wb) - Right Hand Blood Culture - Preliminary No growth in 48 hours. 06/02/23 09:26 Blood Culture (Wb) - Left Hand Blood Culture - Preliminary No growth in 48 hours. 06/03/23 09:15 Mucosa - Nose Coronavirus COVID-19 PCR - Final 06/02/23 10:34 Urine, Random Legionella Antigen - Final 06/02/23 10:34 Urine, Random Streptococcus pneumoniae Antigen (M - Final 06/02/23 11:22 Mucosa - Nasopharyngeal Respiratory Panel (PCR) - Final Rhythm Strip Rhythm Strip: Sinus Tach Rate: 120 Ectopy: None Physical Exam Narrative General alert oriented in no acute distress HEENT. Normocephalic atraumatic, pupils equal and reactive Respiratory reduced air entry bilaterally, no wheezing Cardiac S1-S2, regular rate and rhythm GI abdomen soft and nontender MSK no lower extremity edema Skin no rashes Neuro moves all extremities, no dysarthria, no facial droop Charges/Coding Visit Charges Inpatient E&M: 36122 Subs Hosp L3 06/06/23 1153 <Electronically signed by Pao Weeks MD> Cosigner Signature (if applicable): CC: ~ Signed [facility] Work Phone: 1(367) 512-873312-03-2023 Progress note Author Gabby Sutherland [facility] June 05, 2023 1:59pm Note Date/Time June 05, 2023 1 2:45pm [facility] Medical Records Department [address] [place] [address] Progress Note 06/05/23 1243 MR#: [id number] Acct: [id number] Name: SNEHA CARDENAS Rep #:[id number] : 1955 68 From: Gabby Sutherland MD PCP: Dr. Julio Draper MD Status:A DM IN Location: ICU CVICU20 2-1 Subjective Subjective Patient seen and examined. She says she feels a bit better today. She is on AirVO still. She denies any chest pain, palpitations, dizziness, nausea, vomiting or any other symptoms. Review of systems is otherwise negative. Objective Data Objective Data Vital Signs: Vital Signs Temp Pulse Resp BP Pulse Ox O2 Del Method O2 Flow Rate 99.2 F H 71 20 H 170/66 H 94 Bi-pap 60 06/05/23 10:00 06/05/23 10:40 06/05/23 10:40 06/05/23 10:00 06/05/23 10:40 06/05/23 10:00 06/05/23 07:04 FiO2 28 06/05/23 10:40 Oxygen Flow Rate (L/min) 60 Oxygen Delivery Method Bi-pap Weight: 165 lb 12.602 oz Body Mass Index (BMI) 28.4 Intake & Output: Intake and Output for Last 24 Hours 06/03/23 06/04/23 06/05/23 23:59 23:59 23:59 Intake Total 1220 / 1221.25 1516.25 / 1636.25 1115 / 1115 Output Total 1999 / 1999 900 / 1100 850 / 850 Balance -780 / -778.75 616.25 / 536.25 265 / 265 Lab / Micro Data 06/04/23 05:55 06/04/23 05:55 Labs: Laboratory Results - last 24 hr 06/05/23 11:30: Vancomycin Trough 17.1 H Micro: Microbiology 06/02/23 10:34 Urine, Catheterized Urine Culture - Final Culture exhibits no growth. 06/02/23 10:47 Blood Culture (Wb) - Right Hand Blood Culture - Preliminary No growth in 48 hours. 06/02/23 09:26 Blood Culture (Wb) - Left Hand Blood Culture - Preliminary No growth in 48 hours. 06/03/23 09:15 Mucosa - Nose Coronavirus COVID-19 PCR - Final 06/02/23 10:34 Urine, Random Legionella Antigen - Final 06/02/23 10:34 Urine, Random Streptococcus pneumoniae Antigen (M - Final 06/02/23 11:22 Mucosa - Nasopharyngeal Respiratory Panel (PCR) - Final Rhythm Strip Rhythm Strip: Sinus Tach Rate: 120 Ectopy: None Physical Exam Const alert Constitutional Narrative: frail.on AirVo General Appearance: cooperative HEENT normocephalic and head/scalp atraumatic Mouth: dry mucous membranes Eyes PERRL and EOMs intact bilaterally Neck no lymphadenopathy and supple Lymph Lymphatic: no lymphadenopathy noted Resp Resp Narrative: diminished breath sounds bibasally, no wheezes. on AirVo Cardio regular rate, regular rhythm, S1 normal heart sound, S2 normal heart sound and no murmurs GI normal to inspection, nondistended, normoactive bowel sounds, soft to palpation,non-tender and non-distended Extremity normal capillary refill, no clubbing, cyanosis or edema and no calf tenderness General Extremity: no tenderness to palpation of joints or extremities Skin General Skin Exam: no breakdown Neuro CN's II-XII intact bilaterally, no focal motor deficits and no sensory deficits noted Motor Exam: strength 5/5 throughout and general weakness Psych thought process normal Mood & Affect: anxious Assessment & Plan Assessment/Plan (1) Parapneumonic effusion: (2) Community acquired pneumonia of right lower lobe of lung: PLAN: Plan #Acute on chronic hypoxic respiratory failure due to community acquired pneumonia * now on AirVo * labs are pending. * on meropenem * COVID and flu negative * titrate oxygen to maintain sats >90% * breathing treatment with bronchodilators * Blood cultures negative after 48 hours. Urine for strep and Legionella negative and urine culture also negative. COVID PCR was negative. * In positive fluid balance by 3326mls. Will diurese with Lasix to help with breathing. * #Hypokalemia: labs pending today. Will replace as needed and monitor. #Acute on chronic hypoxic respiratory failure due to acute COPD exacerbation with hypoxia and hypercapnia * Does have known COPD. * on IV Solu-Medrol. Breathing treatments and bronchodilators. * on AirVo * Titrate oxygen to maintain saturation above 90% * critical care on board * #Afib with RVR * went into afib with RVR yesterday * off cardizem drip. Now on meotprolol * on eliquis for DVT prophylaxis * 2D echo showed EF of 65% with stage I diastolic dysfunction and no regional wall motion abnormalities noted. Valves were normal. * * # Nicotine dependence: Counseled to quit. Nicotine patch 21 mg daily. DVT Prophylaxis: on eliquis CODE STATUS: Full code * Charges/Coding Visit Charges Inpatient E&M: 55310 Subs Hosp L3 06/05/23 1347 <Electronically signed by Gabby Sutherland MD> Gabby Sutherland MD Cosigner Signature (if applicable): CC: ~ Signed ADDENDUM by Dr. Gabby Sutherland MD on 06/05/23 at 1359 Addendum Addendum wbc today is 31.6. Likely potentiated by effect of steroids. Continue IV vancomycin and meropenem 06/05/23 1359 <Electronically signed by Gabby garnica MD> Date _ Gabby Sutherland MD Cosigner Signature (if applicable): Date cc: ~* Signed [facility] Work Phone: 1(190) 922-259812-03-2023 Consult note Author Solo Martinez [facility] June 05, 2023 1:55pm Note Date/Time June 05, 2023 1 :50pm [facility] Medical Records Department [address] [place] [address] Pharmacokinetic/Renal -Consult 06/05/23 1350 MR#: [id number] Acct: [id number] Name: SNEHA CARDENAS Rep #:[id number] : 1955 68 From: Solo Martinez PCP: Dr. Julio Draper MD Status:A DM IN Y Location: ICU CVICU20 2-1 Consult Antibiotic Management Pharmacy has been consulted to manage selected antiobiotic: Vancomycin Type of Intervention Type of Consult: Follow-up Suspected Infection Suspected Infection: Pneumonia Prior Doses of Antibiotics Prior Doses of Antibiotics Received/Current Regimen: Currently on 1250mg iv q12h. Labs Labs: Sodium 142 mmol/L (136-145) 06/05/23 12:55 Potassium 4.0 mmol/L (3.5-5.1) 06/05/23 12:55 Chloride 106 mmol/L (98-107) 06/05/23 12:55 Carbon Dioxide 36.0 mmol/L (21.0-32.0) H 06/05/23 12:55 Anion Gap 0 (5-15) L 06/05/23 12:55 BUN 37 mg/dL (7-18) H 06/05/23 12:55 Creatinine 0.63 mg/dL (0.55-1.02) 06/05/23 12:55 Est GFR (MDRD) Af Amer 121 mL/min (>60) 06/05/23 12:55 Est GFR (MDRD) Non-Af 100 mL/min (>60) 06/05/23 12:55 BUN/Creatinine Ratio 58.6 RATIO (10-20) H 06/05/23 12:55 Glucose 177 mg/dL (74-106) H 06/05/23 12:55 Vancomycin Trough 17.1 ug/mL (5.0-15.0) H 06/05/23 11:30 Microbiology Microbiology: Microbiology 06/02/23 10:34 Urine, Catheterized Urine Culture - Final Culture exhibits no growth. 06/02/23 10:47 Blood Culture (Wb) - Right Hand Blood Culture - Preliminary No growth in 48 hours. 06/02/23 09:26 Blood Culture (Wb) - Left Hand Blood Culture - Preliminary No growth in 48 hours. 06/03/23 09:15 Mucosa - Nose Coronavirus COVID-19 PCR - Final 06/02/23 10:34 Urine, Random Legionella Antigen - Final 06/02/23 10:34 Urine, Random Streptococcus pneumoniae Antigen (M - Final 06/02/23 11:22 Mucosa - Nasopharyngeal Respiratory Panel (PCR) - Final Dosing Weight Weight used for dosin.2 kg Estimated Creatinine Clearance Estimated Creatinine Clearance: 47ml/min Goal Trough Goal Trough: 15-20 mcg/mL Pharmacy Plan for Drug Dosing Pharmacy Plan for Drug Dosing: Trough today 17.6 ~10 hrs post dose. Being in desired range, recommend continuing same dose with trough before another 4th dose. Pharmacy Service will continue to monitor and adjust dosing as required. Follow-Up Labs Follow-Up Labs: Trough: Vancomycin (.. @0030 before 0100 dose) 06/05/23 1355 <Electronically signed by Solo Martinez> Date _ Solo Martinez Cosigner Signature (if applicable): Date CC: ~ Signed [facility] Work Phone: 1(678) 684-974112-03-2023 Progress note Author Adrian Nieves [facility] June 05, 2023 7:59am Note Date/Time June 05, 2023 6 :39am [facility] Medical Records Department [address] [place] [address] Progress Note - Linting Machine Operator 06/05/23 0639 MR#: [id number] Acct: [id number] Name: SNEHA CARDENAS Rep #:[id number] : 1955 68 From: Adrian Nieves DO PCP: Dr. Julio Draper MD Status:A DM IN Location: ICU CVICU 2-1 Assessment & Plan Assessment/Plan (1) Acute exacerbation of chronic obstructive pulmonary disease (COPD): PLAN: Plan RECOMMENDATIONS: 1. Continue Airvo for patient comfort. Wean FiO2 for saturations greater than 90%. 2. Continue scheduled BuSpar. 3. Continue scheduled bronchodilator therapy. 4. Continue methylprednisone 40 mg every 6 hours. 5. Continue empiric broad-spectrum antimicrobials. IMPRESSIONS: 1. Acute and chronic respiratory failure with hypoxemia and hypercapnia secondary to COPD with exacerbation The patient has a known history of COPD and chronic hypoxemic respiratory failure with a baseline 3 L/min oxygen requirement. She is followed regularly by Dr. Magali Nieves at [facility] pulmonary medicine. The patient appears to be in a state of exacerbation secondary to right lower lobe pneumonia. She did have evidence of acute CO2 retention in the emergency department and was initiated onappropriate noninvasive positive pressure ventilatory support. Plan to continuecurrent supportive measures including AVAPS therapy, scheduled bronchodilator therapy, IV steroids and antibiotics. 2. Sepsis The patient presented to the hospital with sepsis due to probable right lower lobe pneumonia with acute sepsis related organ dysfunction as evidenced by no need for noninvasive positive pressure ventilatory support. The patient has been fluid resuscitated with appropriate response hemodynamically. Cultures arepending. Plan to continue empiric broad-spectrum antimicrobials. 3. History of seasonal allergic rhinitis/history of tobacco dependency, in remission Complicates care, management, recovery and prognosis. Continue home medicationsas indicated. This note was generated with [employer] software. It may contain incorrectwords, spelling, and punctuation that were not noted in checking the note beforesigning. Subjective Subjective The patient was seen and examined at the bedside this morning. Events from the last 24 hours have been reviewed. The patient is currently afebrile, hemodynamically stable and maintaining appropriate oxygen saturations on Airvo heated high flow. The patient is currently sitting in her bedside recliner and does report interval improvement in her breathing quality. Objective Data Objective Data The patient's most recent lab work, culture data and imaging studies have all been personally reviewed. Strep and urine Legionella antigens were negative. Respiratory viral panel was negative. COVID PCR was negative. Vital Signs: Vital Signs Temp Pulse Resp BP Pulse Ox O2 Del Method O2 Flow Rate 99.3 F H 81 24 H 154/72 H 97 Airvo 8 06/05/23 04:00 06/05/23 04:00 06/05/23 04:00 06/05/23 04:00 06/05/23 04:00 06/05/23 04:00 06/04/23 14:40 FiO2 34 06/05/23 02:47 Oxygen Flow Rate (L/min) 8 Oxygen Delivery Method Airvo Weight: 165 lb 12.602 oz Body Mass Index (BMI) 28.4 Intake & Output: Intake and Output for Last 24 Hours 06/03/23 06/04/23 06/05/23 23:59 23:59 23:59 Intake Total 1220 / 1221.25 1516.25 / 1636.25 755 / 755 Output Total 1999 / 1999 900 / 1100 500 / 500 Balance -780 / -778.75 616.25 / 536.25 255 / 255 Lab / Micro Data Attestation: I reviewed the patient's lab results. 06/04/23 05:55 06/04/23 05:55 Labs: Laboratory Results - last 24 hr 06/04/23 05:55: Differential Comment SCANNED, Diff Path Review May Micro: Microbiology 06/02/23 10:34 Urine, Catheterized Urine Culture - Final Culture exhibits no growth. 06/02/23 10:47 Blood Culture (Wb) - Right Hand Blood Culture - Preliminary No growth in 48 hours. 06/02/23 09:26 Blood Culture (Wb) - Left Hand Blood Culture - Preliminary No growth in 48 hours. 06/03/23 09:15 Mucosa - Nose Coronavirus COVID-19 PCR - Final 06/02/23 10:34 Urine, Random Legionella Antigen - Final 06/02/23 10:34 Urine, Random Streptococcus pneumoniae Antigen (M - Final 06/02/23 11:22 Mucosa - Nasopharyngeal Respiratory Panel (PCR) - Final ABG Data ABG results: ABG 06/03/23 07:12 Specimen Type ART Sample Site R Brach pH 7.37 Bicarbonate Actual 26.2 H Total CO2 28 Base Excess 1 O2 Saturation 94 L O2 % 28.0 ABG pCO2 45.2 H ABG pO2 73 L Respiration Rate 12 O2 Delivery Device BiPAP Vent Mode NIV Tidal Volume 450.0 POC PEEP 10 Clinical Comments 24-12 Radiography Diagnostic Testing: Radiology Impression Echocardiogram 06/03/23 21:11 Interpretation Summary Normal LV size. Left ventricular systolic function is normal. The estimated ejection fraction is 65 %. Stage 1 diastolic dysfunction. Ordering Physician: Livan Garcia Referring Physician: Julio Draper Performed By: Any Hunter RDCS, RVT Rhythm Strip Rhythm Strip: Sinus Tach Rate: 120 Ectopy: None Physical Exam Const alert and oriented x3 Constitutional Narrative: Sitting in bedside recliner. General Appearance: cooperative HEENT normocephalic and head/scalp atraumatic Teeth and Gingiva: poor dentition Eyes PERRL, EOMs intact bilaterally and conjunctivae normal Neck supple General: trachea midline Chest inspection of chest normal Resp Resp Narrative: Slowly improving air movement throughout all lung zepeda Auscultation: diminished lung sounds diffuse; Negative for rales, rhonchi or wheezes Cardio regular rate, regular rhythm, S1 normal heart sound and S2 normal heart sound GI normal to inspection, nondistended, normoactive bowel sounds Extremity no clubbing, cyanosis or edema Skin no rashes or lesions noted Neuro CN's II-XII intact bilaterally, moves all extremities and no focal motor deficits Psych cooperative and affect normal Charges/Coding Visit Charges Inpatient E&M: 16062 Subs Hosp L2 06/05/23 0759 <Electronically signed by Adrian Nieves DO> Cosigner Signature (if applicable): CC: ~ Signed [facility] Work Phone: 1(953) 592-124412-02-2023 Progress note Author Gabby [facility] June 04, 2023 2:54pm Note Date/Time June 04, 2023 1 0:03[facility] Medical Records Department [address] [place] [address] Progress Note 06/04/23 1001 MR#: [id number] Acct: [id number] Name: SNEHA CARDENAS Rep #:[id number] : 1955 68 From: Gabby Sutherland MD PCP: Dr. Julio Draepr MD Status:A DM IN Location: ICU CVICU20 2-1 Subjective Subjective Patient seen and examined. She was on BIPAP. She developed afib with RVR yesterday and had to be put on cardizem drip. She has been weaned off cardizem drip now. She feels weak. Review of systems is otherwise negative. Objective Data Objective Data Vital Signs: Vital Signs Temp Pulse Resp BP Pulse Ox O2 Del Method O2 Flow Rate 99.3 F H 92 26 H 149/81 H 100 Bi-pap 5 06/04/23 07:00 06/04/23 08:00 06/04/23 07:33 06/04/23 07:00 06/04/23 08:00 06/04/23 08:00 06/03/23 15:30 FiO2 28 06/04/23 08:00 Oxygen Flow Rate (L/min) 5 Oxygen Delivery Method Bi-pap Weight: 165 lb 12.602 oz Body Mass Index (BMI) 28.4 Intake & Output: Intake and Output for Last 24 Hours 06/02/23 06/03/23 06/04/23 23:59 23:59 23:59 Intake Total 3225 / 3225 1220 / 1221.25 451.25 / 451.25 Output Total 0 / 0 1999 300 / 300 Balance 3225 / 3225 -780 / -778.75 151.25 / 151.25 Lab / Micro Data 06/04/23 05:55 06/04/23 05:55 Labs: Laboratory Results - last 24 hr 06/04/23 00:40: Vancomycin Trough 8.7 06/04/23 05:55: WBC 30.2 H*, RBC 3.75 L, Hgb 10.7 L, Hct 33.9 L, MCV 90.4, MCH 28.5, MCHC 31.6 L, RDW Std Deviation 43.4, RDW Coeff of Laly 13.0, Plt Count 437,MPV 9.9, Immature Gran % (Auto) 1.100 H, Neut % (Auto) 91.4 H, Lymph % (Auto) 3.3 L, Robertson % (Auto) 3.9, Eos % (Auto) 0.0, Baso % (Auto) 0.3, Absolute Neuts (auto) 27.6 H, Absolute Lymphs (auto) 0.99, Nucleated RBC % 0, Differential Comment SCANNED, Diff Path Review November, Sodium 145, Potassium 3.6, Chloride 110 H, Carbon Dioxide 32.0, Anion Gap 3 L, BUN 29 H, Creatinine 0.57, Estim Creat Clear Calc 47.14, Est GFR (MDRD) Af Amer 136, Est GFR (MDRD) Non-Af 112, BUN/Creatinine Ratio 50.7 H, Glucose 143 H, Calcium 9.2 Micro: Microbiology 06/02/23 10:34 Urine, Catheterized Urine Culture - Final Culture exhibits no growth. 06/02/23 10:47 Blood Culture (Wb) - Right Hand Blood Culture - Preliminary No growth in 48 hours. 06/02/23 09:26 Blood Culture (Wb) - Left Hand Blood Culture - Preliminary No growth in 48 hours. 06/03/23 09:15 Mucosa - Nose Coronavirus COVID-19 PCR - Final 06/02/23 10:34 Urine, Random Legionella Antigen - Final 06/02/23 10:34 Urine, Random Streptococcus pneumoniae Antigen (M - Final 06/02/23 11:22 Mucosa - Nasopharyngeal Respiratory Panel (PCR) - Final Rhythm Strip Rhythm Strip: Sinus Tach Rate: 120 Ectopy: None Physical Exam Const alert Constitutional Narrative: frail. Now on BIPAP Orientation / Consciousness: lethargic HEENT normocephalic and head/scalp atraumatic Eyes PERRL and EOMs intact bilaterally Neck no lymphadenopathy and supple Lymph Lymphatic: no lymphadenopathy noted Resp Resp Narrative: diminished breath sounds bibasally, no wheezes. On BIPAP. Tachypneic Cardio regular rate, regular rhythm, S1 normal heart sound, S2 normal heart sound and no murmurs GI normal to inspection, nondistended, normoactive bowel sounds, soft to palpation,non-tender and non-distended Extremity normal capillary refill, no clubbing, cyanosis or edema and no calf tenderness General Extremity: no tenderness to palpation of joints or extremities Skin General Skin Exam: no breakdown Neuro CN's II-XII intact bilaterally, no focal motor deficits and no sensory deficits noted Motor Exam: strength 5/5 throughout and general weakness Psych thought process normal Mood & Affect: flat affect Assessment & Plan Assessment/Plan (1) Parapneumonic effusion: (2) Community acquired pneumonia of right lower lobe of lung: PLAN: Plan #Acute on chronic hypoxic respiratory failure due to community acquired pneumonia * back on BIPAP this morning * wbc is up to 30.2. The steroids may also be playing a role. * on IV vancomycin and meropenem * still tachycardic and tachypneic. * critical care on board * titrate oxygen to maintain sats >90% * COVID and flu test negative. COVID PRC negative. * #Hypokalemia: K is 3.3. Will replace and trend. #Acute on chronic hypoxic respiratory failure due to acute COPD exacerbation with hypoxia and hypercapnia * Does have known COPD. * on IV Solu-Medrol. Breathing treatments and bronchodilators. * on BIPAP this morning * Titrate oxygen to maintain saturation above 90% * critical care on board * #Afib with RVR * Went into A-fib with RVR overnight. Had to be placed on Cardizem drip. Now weaned off Cardizem drip and in normal sinus rhythm. Will start on metoprolol. start on eliquis for DVT prophylaxis. * # Nicotine dependence: Counseled to quit. Nicotine patch 21 mg daily. DVT Prophylaxis: place on eliquis due to new onset afib CODE STATUS: Full code * Charges/Coding Visit Charges Inpatient E&M: 83514 Subs Hosp L3 06/04/23 1454 <Electronically signed by Gabby Sutherland MD> Gabby Sutherland MD Cosigner Signature (if applicable): CC: ~ Signed [facility] Work Phone: 1(254) 508-763912-02-2023 Progress note Author Adrian Nieves [facility] June 04, 2023 6:03am Note Date/Time June 04, 2023 5 :45am [facility] Medical Records Department [address] [place] [address] Progress Note - Linting Machine Operator 06/04/23 0544 MR#: [id number] Acct: [id number] Name: SNEHA CARDENAS Rep #:[id number] : 1955 68 From: Adrian Nieves DO PCP: Dr. Julio Draper MD Status:A DM IN Location: ICU CVICU20 2-1 Assessment & Plan Assessment/Plan (1) Acute exacerbation of chronic obstructive pulmonary disease (COPD): PLAN: Plan RECOMMENDATIONS: 1. Continue AVAPS therapy and/or Airvo for patient comfort. Wean FiO2 for saturations greater than 90%. 2. Continue scheduled BuSpar. 3. Continue scheduled bronchodilator therapy. 4. Continue methylprednisone 40 mg every 6 hours. 5. Continue empiric broad-spectrum antimicrobials. IMPRESSIONS: 1. Acute and chronic respiratory failure with hypoxemia and hypercapnia secondary to COPD with exacerbation The patient has a known history of COPD and chronic hypoxemic respiratory failure with a baseline 3 L/min oxygen requirement. She is followed regularly by Dr. Magali Nieves at [facility] pulmonary medicine. The patient appears to be in a state of exacerbation secondary to right lower lobe pneumonia. She did have evidence of acute CO2 retention in the emergency department and was initiated onappropriate noninvasive positive pressure ventilatory support. Plan to continuecurrent supportive measures including AVAPS therapy, scheduled bronchodilator therapy, IV steroids and antibiotics. 2. Sepsis The patient presented to the hospital with sepsis due to probable right lower lobe pneumonia with acute sepsis related organ dysfunction as evidenced by no need for noninvasive positive pressure ventilatory support. The patient has been fluid resuscitated with appropriate response hemodynamically. Cultures arepending. Plan to continue empiric broad-spectrum antimicrobials. 3. History of seasonal allergic rhinitis/history of tobacco dependency, in remission Complicates care, management, recovery and prognosis. Continue home medicationsas indicated. This note was generated with [employer] dictation software. It may contain incorrectwords, spelling, and punctuation that were not noted in checking the note beforesigning. Subjective Subjective The patient was seen and examined at the bedside this morning. Events from the last 24 hours have been reviewed. The patient has been running low-grade feversovernight but remains otherwise hemodynamically stable. The patient has been going back and forth between AVAPS and Airvo heated high flow. She is alert andappropriately interactive this morning. She does endorse ongoing shortness of breath and continued anxiety. Overnight, the patient did have a period of atrial fibrillation, which is medically managed with Cardizem. She has since been weaned off of the medication. Objective Data Objective Data The patient's most recent lab work, culture data and imaging studies have all been personally reviewed. Strep and urine Legionella antigens were negative. Respiratory viral panel was negative. COVID PCR was negative. Vital Signs: Vital Signs Temp Pulse Resp BP Pulse Ox O2 Del Method O2 Flow Rate 100.1 F H 86 20 H 139/58 H 99 Bi-pap 5 06/04/23 05:00 06/04/23 05:15 06/04/23 05:00 06/04/23 05:15 06/04/23 05:00 06/04/23 05:00 06/03/23 15:30 FiO2 28 06/04/23 04:00 Oxygen Flow Rate (L/min) 5 Oxygen Delivery Method Bi-pap Weight: 165 lb 12.602 oz Body Mass Index (BMI) 28.4 Intake & Output: Intake and Output for Last 24 Hours 06/02/23 06/03/23 06/04/23 23:59 23:59 23:59 Intake Total 3225 / 3225 1220 / 1221.25 451.25 / 451.25 Output Total 0 / 0 1999 Balance 3225 / 3225 -780 / -778.75 451.25 / 451.25 Lab / Micro Data Attestation: I reviewed the patient's lab results. 06/03/23 04:35 06/03/23 04:35 Labs: Laboratory Results - last 24 hr 06/03/23 04:35: Differential Comment SCANNED 06/04/23 00:40: Vancomycin Trough 8.7 Micro: Microbiology 06/03/23 09:15 Mucosa - Nose Coronavirus COVID-19 PCR - Final 06/02/23 10:34 Urine, Random Legionella Antigen - Final 06/02/23 10:34 Urine, Random Streptococcus pneumoniae Antigen (M - Final 06/02/23 11:22 Mucosa - Nasopharyngeal Respiratory Panel (PCR) - Final ABG Data ABG results: ABG 06/03/23 07:12 Specimen Type ART Sample Site R Brach pH 7.37 Bicarbonate Actual 26.2 H Total CO2 28 Base Excess 1 O2 Saturation 94 L O2 % 28.0 ABG pCO2 45.2 H ABG pO2 73 L Respiration Rate 12 O2 Delivery Device BiPAP Vent Mode NIV Tidal Volume 450.0 POC PEEP 10 Clinical Comments 24-12 Radiography Diagnostic Testing: Radiology Impression Chest X-Ray 06/02/23 09:11 IMPRESSION: Small right pleural effusion with right basilar infiltrate. Electronically Signed: Michael Gaxiola MD at 10:05 EST Reading Location ID and State: [address] [place] [address] , Service support , Rhythm Strip Rhythm Strip: Sinus Tach Rate: 120 Ectopy: None Physical Exam Const alert and oriented x3 Constitutional Narrative: BiPAP mask in place. General Appearance: cooperative HEENT normocephalic and head/scalp atraumatic Teeth and Gingiva: poor dentition Eyes PERRL, EOMs intact bilaterally and conjunctivae normal Neck supple General: trachea midline Chest inspection of chest normal Resp Auscultation: diminished lung sounds diffuse; Negative for rales, rhonchi or wheezes Cardio regular rate, regular rhythm, S1 normal heart sound and S2 normal heart sound GI normal to inspection, nondistended, normoactive bowel sounds Extremity no clubbing, cyanosis or edema Skin no rashes or lesions noted Neuro CN's II-XII intact bilaterally and no focal motor deficits Psych Mood & Affect: anxious Charges/Coding Visit Charges Inpatient E&M: 95478 Subs Hosp L3 06/04/23 0603 <Electronically signed by Adrian Nieves DO> Cosigner Signature (if applicable): CC: ~ Signed [facility] Work Phone: 1(341) 832-167012-02-2023 Consult note Author Cash Lovett [facility] June 04, 2023 2:15am Note Date/Time June 04, 2023 2 :15am [facility] Medical Records Department [address] [place] [address] Pharmacokinetic/Renal -Consult 06/04/233 MR#: [id number] Acct: [id number] Name: SNEHA CARDENAS Rep #:[id number] : 1955 68 From: Cash Montes od PCP: Dr. Julio Draper MD Status:A DM IN Y Location: ICU CVICU20 2-1 Consult Antibiotic Management Pharmacy has been consulted to manage selected antiobiotic: Vancomycin Type of Intervention Type of Consult: Follow-up Labs Labs: Sodium 142 mmol/L (136-145) 06/03/23 04:35 Potassium 3.3 mmol/L (3.5-5.1) L 06/03/23 04:35 Chloride 110 mmol/L (98-107) H 06/03/23 04:35 Carbon Dioxide 26.0 mmol/L (21.0-32.0) 06/03/23 04:35 Anion Gap 6 (5-15) 06/03/23 04:35 BUN 18 mg/dL (7-18) 06/03/23 04:35 Creatinine 0.68 mg/dL (0.55-1.02) 06/03/23 04:35 Est GFR (MDRD) Af Amer 112 mL/min (>60) 06/03/23 04:35 Est GFR (MDRD) Non-Af 92 mL/min (>60) 06/03/23 04:35 BUN/Creatinine Ratio 26.6 RATIO (10-20) H 06/03/23 04:35 Glucose 147 mg/dL (74-106) H 06/03/23 04:35 Vancomycin Trough 8.7 ug/mL (5.0-15.0) 06/04/23 00:40 Microbiology Microbiology: Microbiology 06/03/23 09:15 Mucosa - Nose Coronavirus COVID-19 PCR - Final 06/02/23 10:34 Urine, Random Legionella Antigen - Final 06/02/23 10:34 Urine, Random Streptococcus pneumoniae Antigen (M - Final 06/02/23 11:22 Mucosa - Nasopharyngeal Respiratory Panel (PCR) - Final Pharmacy Plan for Drug Dosing Pharmacy Plan for Drug Dosing: Pharmacy Service will continue to monitor and adjust dosing as required. TROUGH 8.7 @ 11.5 HOURS. INCREASE TO 1250MG Q12H FOR GOAL TROUGH 15-20. FOLLOWUP TROUGH PRIOR TO 4TH DOSE Follow-Up Labs Follow-Up Labs: Trough: Vancomycin Date/Time Labs Ordered Labs to be done on [date and time ordered]: 06/05 @ 1300 06/04/23 0215 <Electronically signed by Cash barrios> Date _ Cash Robertson Signature (if applicable): Date CC: ~ Signed [facility] Work Phone: 1(983) 862-732812-01-2023 Progress note Author Livan Garcia [facility] June 03, 2023 9:13pm Note Date/Time June 03, 2023 9 :13pm [facility] Medical Records Department [address] [place] [address] Progress Note - Hospitalist 06/03/232111 MR#: [id number] Acct: [id number] Name: SNEHA CARDENAS Rep #:[id number] : 1955 68 From: Livan Garcia DO PCP: Dr. Julio Draper MD Status:A DM IN Location: ICU CVICU20 2-1 Hospitalist Note Patient has developed atrial fibrillation with RVR. Patient was seen by the afternoon hospitalist and gave her a dose of IV metoprolol. Despite that, patient is persistently in atrial fibrillation with RVR. Will bolus her with IVdiltiazem and start her on the diltiazem drip. Will change her anticoagulation to therapeutic enoxaparin. Check 2D echocardiogram but this appears that she does not have any echocardiogram in our system. 06/03/232112 <Electronically signed by Livan Garcia DO> Cosigner Signature (if applicable): CC: ~ Signed [facility] Work Phone: 1(452) 204-466112-01-2023 Progress note Author Robel Funk [facility] June 03, 2023 7:12pm Note Date/Time June 03, 2023 7 :12pm [facility] Medical Records Department [address] [place] [address] Progress Note - Hospitalist 06/03/231906 MR#: [id number] Acct: [id number] Name: SNEHA CARDENAS Rep #:[id number] : 1955 68 From: Robel fuentes DO PCP: Dr. Julio Draper MD Status:A DM IN Location: ICU CVICU20 2-1 Hospitalist Note Notified by nursing staff that patient flipped into what appeared to be A-fib with RVR at around 6 PM. EKG was consistent with A-fib with RVR with rate of 145. On telemetry, it appears that patient's rate has consistently been around 150 and 160 for the past hour. Blood pressures remained stable. Patient is here for acute on chronic respiratory failure secondary to pneumonia. Has been requiring about the same level of oxygen all day between Airvo and high flow nasal cannula, no change in oxygen requirements since flipping in A-fib. Patient seen at bedside. She appears chronically ill and is on high flow nasal cannula with fairly high oxygen requirements. She has poor breath sounds bilaterally, which the nurse states has been fairly consistent for her. Patientdenies feeling any palpitations. She does not have any increased work of breathing at this time. She does not appear to be anxious. No prior history of A-fib noted on chart review or per the patient. Suspect this episode of A-fib is due to acute stress state from her pneumonia and respiratory failure. Will give IV Lopressor 5 mg x 1 dose now, monitor response. If she does not have significant improvement in rate or convert back to normal sinus rhythm after 30 minutes to an hour, told nurse notify us and we will plan to give a bolus of IV Cardizem and start a Cardizem drip at that time. 06/03/231911 <Electronically signed by Robel Funk DO> Cosigner Signature (if applicable): CC: ~ Signed [facility] Work Phone: 1(873) 555-312712-01-2023 History and physical note [facility] June 03, 2023 2:16pm Note Date/Time June 02, 2023 10:59am [facility] Medical Records Department [address] [place] [address] History & Physical Exam 06/02/23 1052 MR#: [id number] Acct: [id number] Name: SNEHA CARDENAS Rep #:[id number] : 1955 68 From: Gabby Sutherland MD PCP: Dr. Julio Draper MD Status:A DM IN Location: ICU CVICU20 2-1 HPI - General General Date of Admission: 06/02/23 Date of Service: 06/02/23 Chief Complaint: shortness of breath HPI Narrative SNEHA CARDENAS, is a 68 F with a PMH as outlined who presents via the ED on 06/02/2023 with a complaint of shortness of breath. She had been seen in the ED ~ 2 days prior to this admission and was diagnosed with pneumonia; she was sent home on antibiotics. However, she had been declining at home and hadnt even started the antibiotics she was sent on . She therefore came back to the ED due ot her worsening state. VItals on admission was UT of 118, temp of 100.9F, RR of 30 and BP of 97/85 after receiving fluids. CBC showed Hb of 11.9, wbc of 23.8 and platelets of 504. ABG showed pH of 7.25 at the oxygen of 90% pCO2 of 60. Chemistry was unremarkable. Urinalysis showed no evidence of UTI. COVID and flu test was negative. Chest x-ray showed small right pleural effusion with a right basilar infiltrate. She was hydrated with fluids and blood pressure subsequently came up.. She was placed on BiPAP and has been admitted to be managed for acute hypoxic respiratory failure due to community-acquired pneumonia. [facility] Medical History Anxiety Asthma Benign essential hypertension Benign essential tremor COPD (chronic obstructive pulmonary disease) Former tobacco use Migraines On home oxygen therapy Pneumonia due to COVID-19 virus Home Medications albuterol sulfate 90 mcg/actuation aerosol inhaler (Ventolin HFA) 2 puff inhalation Q4H PRN PRN Shortness Of Breath 08/28/15 [History Last Taken 11/30/22 10:00] montelukast 10 mg tablet 10 mg PO QHS ALLERGIES 02/25/18 [History Last Taken 11/29/22] fluticasone fur. 100 mcg-umeclid 62.5 mcg-vilant 25 mcg inhalat.powder (Trelegy Ellipta) 1 inh inhalation DAILY COPD 05/01/21 [History Last Taken 11/30/22] fluticasone propionate 50 mcg/actuation nasal spray,suspension 2 spray intranasal QHS ALLERGIES 05/01/21 [History Last Taken 11/28/22] levofloxacin 750 mg tablet 750 mg PO DAILY #7 tabs 12/03/22 [Rx Last Taken Unknown] prednisone 20 mg tablet 40 mg (2 x 20 mg) PO DAILY 7 days #14 tabs 12/03/22 [Rx Last Taken Unknown] oxycodone-acetaminophen 5 mg-325 mg tablet (Percocet) 1 tab PO Q6H PRN pain 4 days #14 tabs 06/01/23 [Rx Last Taken Unknown] Allergy/AdvReac Type Severity Reaction Status Date / Time cephalexin monohydrate Allergy Chest Verified 06/02/23 08:53 [From Keflex] tightness Surgical History H/O bilateral salpingectomy History of herniorrhaphy Hx of cholecystectomy Hx of tonsillectomy Social History adopted: Yes household members: family housing: house Smoking Status: Former smoker alcohol intake: never substance use type: does not use ROS Constitutional Constitutional: Reports chills, fatigue, fever(s), malaise and weakness; Denies anorexia Eyes Eyes: Denies change in vision ENT HEENT: Denies dysphagia, headache(s), loss taste/smell, sore throat or throat swelling Cardiovascular Cardiovascular: Reports palpitations; Denies chest pain, claudication, edema or paroxysmal nocturnal dyspnea Respiratory/Chest Respiratory/Chest: Reports cough, shortness of breath at rest and shortness of breath with exertion; Denies wheezing Gastrointestinal Gastrointestinal: Reports nausea; Denies abdominal pain, constipation, diarrhea or vomiting Genitourinary Genitourinary: Denies nocturia Musculoskeletal Musculoskeletal: Denies back pain, joint pain, joint stiffness or muscle weakness Integumentary Integumentary: Denies dry skin or jaundice Neurologic Neurologic: Denies confusion or focal weakness Vital Signs Vital Signs Vital Signs: 06/02/23 08:59 06/02/23 09:03 06/02/23 09:07 Temperature 100.9 F H 100.9 F H Temperature Source Temporal Temporal Pulse Rate 122 H 124 H Respiratory Rate 35 H 35 H Respiratory Effort Short of Breath Labored Accessory Muscle Use Respiratory Depth Shallow Respiratory Pattern Tachypnea Blood Pressure 79/34 L 79/34 L Blood Pressure Mean 49 49 Pulse Ox 99 98 Oxygen Delivery Method Nasal Cannula Venturi Mask Fraction of Inspired Oxygen (FIO2) 06/02/23 09:11 06/02/23 09:41 06/02/23 09:35 Temperature Temperature Source Pulse Rate 120 H 122 H Respiratory Rate 29 H 33 H Respiratory Effort Respiratory Depth Respiratory Pattern Tachypnea Tachypnea Blood Pressure Blood Pressure Mean Pulse Ox 95 Oxygen Delivery Method Venturi Mask Fraction of Inspired Oxygen (FIO2) 50 06/02/23 10:00 06/02/23 09:53 Temperature Temperature Source Pulse Rate 118 H 113 H Respiratory Rate 28 H 30 H Respiratory Effort Respiratory Depth Respiratory Pattern Tachypnea Blood Pressure 97/85 H Blood Pressure Mean 89 Pulse Ox 93 98 Oxygen Delivery Method Bi-pap Fraction of Inspired Oxygen (FIO2) 50 Weight Weight: 164 lb 0.383 oz Body Mass Index (BMI) 28.0 Physical Exam Const alert Constitutional Narrative: frail, on BIPAP Orientation / Consciousness: lethargic HEENT normocephalic and head/scalp atraumatic Mouth: dry mucous membranes Eyes PERRL and EOMs intact bilaterally Neck no lymphadenopathy and supple Lymph Lymphatic: no lymphadenopathy noted Resp Resp Narrative: Patient on BiPAP, tachypneic, diminished breath sounds bibasilarly. bilateral wheezing, no crackles. Cardio regular rate, regular rhythm, S1 normal heart sound, S2 normal heart sound and no murmurs GI normal to inspection, nondistended, normoactive bowel sounds, soft to palpation,non-tender and non-distended Extremity General Extremity: no tenderness to palpation of joints or extremities Skin General Skin Exam: no breakdown Neuro CN's II-XII intact bilaterally, no focal motor deficits and no sensory deficits noted Motor Exam: general weakness Psych Mood & Affect: anxious Results Lab / Micro Data 06/02/23 09:26 06/02/23 09:26 Labs: Laboratory Results - last 24 hr 06/02/23 09:26: WBC 23.8 H, RBC 4.09 L, Hgb 11.9 L, Hct 36.8 L, MCV 90.0, MCH 29.1, MCHC 32.3, RDW Std Deviation 41.5, RDW Coeff of Laly 12.5, Plt Count 504 H,MPV 10.0, Immature Gran % (Auto) 0.600, Neut % (Auto) 84.8 H, Lymph % (Auto) 9.2L, Robertson % (Auto) 3.9, Eos % (Auto) 1.1, Baso % (Auto) 0.4, Absolute Neuts (auto)20.2 H, Absolute Lymphs (auto) 2.18, Nucleated RBC % 0, PT 14.7, INR 1.2, APTT 29.1, Sodium 136, Potassium 3.6, Chloride 101, Carbon Dioxide 29.0, Anion Gap 6,BUN 15, Creatinine 0.87, Estim Creat Clear Calc 54.18, Est GFR (MDRD) Af Amer 84, Est GFR (MDRD) Non-Af 69, BUN/Creatinine Ratio 17.3, Glucose 187 H, Lactic Acid 1.6, Calcium 9.4, Total Bilirubin 0.70, AST 18, ALT 14, Alkaline Phosphatase 112, Total Protein 7.9, Albumin 3.0 L, Globulin 4.9 H, Albumin/Globulin Ratio 0.6 L ABG Data ABG results: ABG 06/02/23 09:53 Specimen Type ART Sample Site R Brach pH 7.25 L Bicarbonate Actual 26.9 H Total CO2 29 Base Excess 0 O2 Saturation 90 L O2 % 3.0 ABG pCO2 62.0 H ABG pO2 70 L O2 Delivery Device Not entered Vent Mode Not entered Rhythm Strip Rhythm Strip: Sinus Tach Rate: 120 Ectopy: None Imagaing Radiology Impression Chest X-Ray 06/02/23 09:11 IMPRESSION: Small right pleural effusion with right basilar infiltrate. Electronically Signed: Michael Gaxiola MD at 10:05 EST , Assessment & Plan Assessment/Plan (1) Parapneumonic effusion: (2) Community acquired pneumonia of right lower lobe of lung: PLAN: Plan #Acute on chronic hypoxic respiratory failure due to community acquired pneumonia * Admitted to ICU as patient now requiring BiPAP. Tachypneic and tachycardic. * She had been seen in the ED about 2 days prior to admission was given antibiotics for pneumonia. She had however been too weak to take the antibiotics at home. Her shortness of breath had gradually worsened. * WBC is elevated at 23.8. * Will check urine for strep and Legionella. ABG done showed respiratory acidosis. * Started on IV meropenem and IV vancomycin. Blood cultures ordered. * Critical care consulted. Titrate oxygen to maintain saturation above 90%. Breathing treatments bronchodilators. * #Acute on chronic hypoxic respiratory failure due to acute COPD exacerbation with hypoxia and hypercapnia * Does have known COPD. Started on IV Solu-Medrol. Breathing treatments and bronchodilators. Try to wean off of BiPAP as tolerated. Titrate oxygen to maintain saturation above 90% * critical care on board * # Nicotine dependence: Counseled to quit. Nicotine patch 21 mg daily. DVT Prophylaxis: lovenox CODE STATUS: Full code * Patient counseled extensively about different types of CODE STATUS including full code, DNR CCA and DNR CCA. Patient elects to be full code. * Total [id number] time 17 minutes. Charges/Coding Visit Charges Inpatient E&M: 24047 Init Hosp L3 Procedures Hospitalists Procedures: 30138 Advncd Care Plan 30 Min 06/03/23 1416 <Electronically signed by Gabby Sutherland MD> Cosigner Signature (if applicable): CC: Dr. Gabby Sutherland MD; Dr. Julio Draper MD~ Signed [facility] Work Phone: 1(701) 811-767012-01-2023 Progress note Author Gabby [facility] June 03, 2023 2:16pm Note Date/Time June 03, 2023 1 0:24am [facility] Medical Records Department [address] [place] [address] Progress Note 06/03/23 1018 MR#: [id number] Acct: [id number] Name: SNEHA CARDENAS Rep #:[id number] : 1955 68 From: Gabby Sutherland MD PCP: Dr. Julio Draper MD Status:A DM IN Location: ICU CVICU20 2-1 Subjective Subjective Patient seen and examined. She was off BIPAP but was now on AirVo. She still feels short of breath and admits to a cough. She denied any chest pain, palpitations, dizziness, nausea, vomiting or any other symptoms. Review of systems is otherwise negative. Objective Data Objective Data Vital Signs: Vital Signs Temp Pulse Resp BP Pulse Ox O2 Del Method O2 Flow Rate 97.5 F L 111 H 22 H 135/62 H 100 Airvo 3 06/03/23 07:00 06/03/23 07:41 06/03/23 07:41 06/03/23 07:00 06/03/23 08:00 06/03/23 08:00 06/03/23 05:00 FiO2 35 06/03/23 08:00 Oxygen Flow Rate (L/min) 3 Oxygen Delivery Method Airvo Weight: 165 lb 5.547 oz Body Mass Index (BMI) 28.3 Intake & Output: Intake and Output for Last 24 Hours 06/01/23 06/02/23 06/03/23 23:59 23:59 23:59 Intake Total 3225 / 3225 265 / 265 Output Total 0 / 0 Balance 3225 / 3225 265 / 265 Lab / Micro Data 06/03/23 04:35 06/03/23 04:35 Labs: Laboratory Results - last 24 hr 06/02/23 10:34: Urine Color Yellow, Urine Clarity Cloudy, Urine pH 5.0, Ur Specific [place] 1.030, Urine Protein 100 H, Urine Glucose (UA) Normal, Urine Ketones 5 H, Urine Occult Blood 150 H, Urine Nitrite Negative, Urine Bilirubin Negative, Urine Urobilinogen Normal, Ur Leukocyte Esterase Negative, Urine RBC 0-5 SEEN, Urine WBC 0 SEEN, Ur Squamous Epith Cells 0-5 SEEN, Urine Bacteria 1+,Hyaline Casts 0-5 SEEN, Urine Mucus 2+ 06/02/23 13:10: MRSA (PCR) Negative 06/03/23 04:35: WBC 24.2 H, RBC 3.68 L, Hgb 10.6 L, Hct 33.4 L, MCV 90.8, MCH 28.8, MCHC 31.7 L, RDW Std Deviation 41.9, RDW Coeff of Laly 12.6, Plt Count 374,MPV 9.8, Immature Gran % (Auto) 0.500, Neut % (Auto) 90.6 H, Lymph % (Auto) 3.5 L, Robertson % (Auto) 4.8, Eos % (Auto) 0.0, Baso % (Auto) 0.6, Absolute Neuts (auto)22.0 H, Absolute Lymphs (auto) 0.84, Nucleated RBC % 0, Differential Comment SCANNED, Sodium 142, Potassium 3.3 L, Chloride 110 H, Carbon Dioxide 26.0, AnionGap 6, BUN 18, Creatinine 0.68, Estim Creat Clear Calc 47.14, Est GFR (MDRD) Af Amer 112, Est GFR (MDRD) Non-Af 92, BUN/Creatinine Ratio 26.6 H, Glucose 147 H, Calcium 8.3 L Micro: Microbiology 06/03/23 09:15 Mucosa - Nose Coronavirus COVID-19 PCR - Final 06/02/23 10:34 Urine, Random Legionella Antigen - Final 06/02/23 10:34 Urine, Random Streptococcus pneumoniae Antigen (M - Final 06/02/23 11:22 Mucosa - Nasopharyngeal Respiratory Panel (PCR) - Final ABG Data ABG results: ABG 06/03/23 07:12 Specimen Type ART Sample Site R Brach pH 7.37 Bicarbonate Actual 26.2 H Total CO2 28 Base Excess 1 O2 Saturation 94 L O2 % 28.0 ABG pCO2 45.2 H ABG pO2 73 L Respiration Rate 12 O2 Delivery Device BiPAP Vent Mode NIV Tidal Volume 450.0 POC PEEP 10 Clinical Comments 24-12 Rhythm Strip Rhythm Strip: Sinus Tach Rate: 120 Ectopy: None Physical Exam Const alert Constitutional Narrative: frail, on AirVo HEENT normocephalic and head/scalp atraumatic Eyes PERRL and EOMs intact bilaterally Neck no lymphadenopathy and supple Lymph Lymphatic: no lymphadenopathy noted Resp Resp Narrative: Patient on Airvo, tachypneic, diminished breath sounds bibasilarly. bilateral wheezing, no crackles. Cardio regular rhythm, S1 normal heart sound, S2 normal heart sound and no murmurs Cardio Narrative: tachypneic GI normal to inspection, nondistended, normoactive bowel sounds, soft to palpation,non-tender and non-distended Extremity normal capillary refill, no clubbing, cyanosis or edema and no calf tenderness General Extremity: no tenderness to palpation of joints or extremities Skin General Skin Exam: no breakdown Neuro CN's II-XII intact bilaterally, no focal motor deficits and no sensory deficits noted Motor Exam: strength 5/5 throughout and general weakness Psych thought process normal Mood & Affect: anxious Assessment & Plan Assessment/Plan (1) Parapneumonic effusion: (2) Community acquired pneumonia of right lower lobe of lung: PLAN: Plan #Acute on chronic hypoxic respiratory failure due to community acquired pneumonia * now off BIPAP and on Airvo * on IV vancomycin and meropenem * still tachycardic and tachypneic. * wbc is 24.2. * critical care on board * titrate oxygen to maintain sats >90% * COVID and flu test negative. COVID PRC negative. * #Hypokalemia: K is 3.3. Will replace and trend. #Acute on chronic hypoxic respiratory failure due to acute COPD exacerbation with hypoxia and hypercapnia * Does have known COPD. * on IV Solu-Medrol. Breathing treatments and bronchodilators. * Now on AirVO. * Titrate oxygen to maintain saturation above 90% * critical care on board * # Nicotine dependence: Counseled to quit. Nicotine patch 21 mg daily. 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 Julio Draper MD Status:A DM IN Location: ICU CVICU20 2-1 Assessment & Plan Assessment/Plan (1) Acute exacerbation of chronic obstructive pulmonary disease (COPD): PLAN: Plan RECOMMENDATIONS: 1. Continue AVAPS therapy and wean FiO2 for saturations at or above 90%. 2. Attempt to transition to heated high flow oxygen for patient comfort. 3. Add as needed aerosol treatments. Continue scheduled bronchodilator therapy. 4. Check COVID PCR. 5. Continue methylprednisone 40 mg every 6 hours. 6. Continue empiric broad-spectrum antimicrobials. 7. Obtain follow-up arterial blood gas. IMPRESSIONS: 1. Acute and chronic respiratory failure with hypoxemia and hypercapnia secondary to COPD with exacerbation The patient has a known history of COPD and chronic hypoxemic respiratory failure with a baseline 3 L/min oxygen requirement. She is followed regularly by Dr. Magali Nieves at [facility] pulmonary medicine. The patient appears to be in a state of exacerbation secondary to right lower lobe pneumonia. She did have evidence of acute CO2 retention in the emergency department and was initiated onappropriate noninvasive positive pressure ventilatory support. Plan to continuecurrent supportive measures including AVAPS therapy, scheduled bronchodilator therapy, IV steroids and antibiotics. Will obtain follow-up arterial blood gas this morning. 2. Sepsis The patient presented to the hospital with sepsis due to probable right lower lobe pneumonia with acute sepsis related organ dysfunction as evidenced by no need for noninvasive positive pressure ventilatory support. The patient has been fluid resuscitated with appropriate response hemodynamically. Cultures arepending. Plan to continue empiric broad-spectrum antimicrobials. 3. History of seasonal allergic rhinitis/history of tobacco dependency, in remission Complicates care, management, recovery and prognosis. Continue home medicationsas indicated. TIME: 33 minutes of critical care time, independent of procedures, was spent addressing the patient's acute on chronic respiratory failure, sepsis, right lower lobe pneumonia, review of all data and collaboration with the care team. Subjective Subjective The patient was seen and examined at the bedside this morning. Events from the last 24 hours have been reviewed. The patient is currently afebrile, hemodynamically stable and maintaining appropriate oxygen saturations on AVAPS with an FiO2 of 28%. The patient continues to report ongoing shortness of breath. Objective Data Objective Data The patient's most recent lab work, culture data and imaging studies have all been personally reviewed. Strep and urine Legionella antigens were negative. Respiratory viral panel was negative. Vital Signs: Vital Signs Temp Pulse Resp BP Pulse Ox O2 Del Method O2 Flow Rate 97.5 F L 108 H 22 H 135/62 H 100 Bi-pap 3 06/03/23 07:00 06/03/23 07:00 06/03/23 07:00 06/03/23 07:00 06/03/23 07:00 06/03/23 07:00 06/03/23 05:00 FiO2 28 06/03/23 07:00 Oxygen Flow Rate (L/min) 3 Oxygen Delivery Method Bi-pap Weight: 165 lb 5.547 oz Body Mass Index (BMI) 28.3 Intake & Output: Intake and Output for Last 24 Hours 06/01/23 06/02/23 06/03/23 23:59 23:59 23:59 Intake Total 3225 / 3225 265 / 265 Output Total 0 / 0 Balance 3225 / 3225 265 / 265 Lab / Micro Data Attestation: I reviewed the patient's lab results. 06/03/23 04:35 06/03/23 04:35 Labs: Laboratory Results - last 24 hr 06/02/23 09:26: WBC 23.8 H, RBC 4.09 L, Hgb 11.9 L, Hct 36.8 L, MCV 90.0, MCH 29.1, MCHC 32.3, RDW Std Deviation 41.5, RDW Coeff of Laly 12.5, Plt Count 504 H,MPV 10.0, Immature Gran % (Auto) 0.600, Neut % (Auto) 84.8 H, Lymph % (Auto) 9.2L, Robertson % (Auto) 3.9, Eos % (Auto) 1.1, Baso % (Auto) 0.4, Absolute Neuts (auto)20.2 H, Absolute Lymphs (auto) 2.18, Nucleated RBC % 0, PT 14.7, INR 1.2, APTT 29.1, Sodium 136, Potassium 3.6, Chloride 101, Carbon Dioxide 29.0, Anion Gap 6,BUN 15, Creatinine 0.87, Estim Creat Clear Calc 54.18, Est GFR (MDRD) Af Amer 84, Est GFR (MDRD) Non-Af 69, BUN/Creatinine Ratio 17.3, Glucose 187 H, Lactic Acid 1.6, Calcium 9.4, Total Bilirubin 0.70, AST 18, ALT 14, Alkaline Phosphatase 112, Total Protein 7.9, Albumin 3.0 L, Globulin 4.9 H, Albumin/Globulin Ratio 0.6 L 06/02/23 10:34: Urine Color Yellow, Urine Clarity Cloudy, Urine pH 5.0, Ur Specific Paradise 1.030, Urine Protein 100 H, Urine Glucose (UA) Normal, Urine Ketones 5 H, Urine Occult Blood 150 H, Urine Nitrite Negative, Urine Bilirubin Negative, Urine Urobilinogen Normal, Ur Leukocyte Esterase Negative, Urine RBC 0-5 SEEN, Urine WBC 0 SEEN, Ur Squamous Epith Cells 0-5 SEEN, Urine Bacteria 1+,Hyaline Casts 0-5 SEEN, Urine Mucus 2+ 06/02/23 13:10: MRSA (PCR) Negative 06/03/23 04:35: WBC 24.2 H, RBC 3.68 L, Hgb 10.6 L, Hct 33.4 L, MCV 90.8, MCH 28.8, MCHC 31.7 L, RDW Std Deviation 41.9, RDW Coeff of Laly 12.6, Plt Count 374,MPV 9.8, Immature Gran % (Auto) 0.500, Neut % (Auto) 90.6 H, Lymph % (Auto) 3.5 L, Robertson % (Auto) 4.8, Eos % (Auto) 0.0, Baso % (Auto) 0.6, Absolute Neuts (auto)22.0 H, Absolute Lymphs (auto) 0.84, Nucleated RBC % 0, Differential Comment SCANNED, Sodium 142, Potassium 3.3 L, Chloride 110 H, Carbon Dioxide 26.0, AnionGap 6, BUN 18, Creatinine 0.68, Estim Creat Clear Calc 47.14, Est GFR (MDRD) Af Amer 112, Est GFR (MDRD) Non-Af 92, BUN/Creatinine Ratio 26.6 H, Glucose 147 H, Calcium 8.3 L Micro: Microbiology 06/02/23 10:34 Urine, Random Legionella Antigen - Final 06/02/23 10:34 Urine, Random Streptococcus pneumoniae Antigen (M - Final 06/02/23 11:22 Mucosa - Nasopharyngeal Respiratory Panel (PCR) - Final ABG Data ABG results: ABG 06/02/23 09:53 Specimen Type ART Sample Site R Brach pH 7.25 L Bicarbonate Actual 26.9 H Total CO2 29 Base Excess 0 O2 Saturation 90 L O2 % 3.0 ABG pCO2 62.0 H ABG pO2 70 L O2 Delivery Device Not entered Vent Mode Not entered Radiography Diagnostic Testing: Radiology Impression Chest X-Ray 06/02/23 09:11 IMPRESSION: Small right pleural effusion with right basilar infiltrate. Electronically Signed: Michael Gaxiola MD at 10:05 EST , Rhythm Strip Rhythm Strip: Sinus Tach Rate: 120 Ectopy: None Physical Exam Const alert and oriented x3 Constitutional Narrative: BiPAP mask in place. General Appearance: cooperative and ill appearing HEENT normocephalic and head/scalp atraumatic Teeth and Gingiva: poor dentition Eyes PERRL, EOMs intact bilaterally and conjunctivae normal Neck supple General: trachea midline Chest inspection of chest normal Resp Effort and Inspection: tachypneic Auscultation: rales and diminished lung sounds diffuse; Negative for rhonchi or wheezes Cardio S1 normal heart sound and S2 normal heart sound Rate: tachycardic GI normal to inspection, nondistended, normoactive bowel sounds Extremity no clubbing, cyanosis or edema Skin no rashes or lesions noted Neuro CN's II-XII intact bilaterally and no focal motor deficits Psych Mood & Affect: flat affect Charges/Coding Procedures Hospitalists Procedures: 84603 Critial Care 1st Hr 06/03/23 0826 <Electronically signed by Adrian Nieves DO> Cosigner Signature (if applicable): CC: ~ Signed [facility] Work Phone: 1(416) 939-580812-01-2023 Consult note Author Adrian Nieves [facility] June 03, 2023 7:10am Note Date/Time June 02, 2023 1:54pm [facility] Medical Records Department [address] [place] [address] Pharmacokinetic/Renal -Consult 06/02/23 1354 MR#: [id number] Acct: [id number] Name: SNEHA CARDENAS Rep #:[id number] : 1955 68 From: Jose Cantor PCP: Dr. Julio Draper MD Status:A DM IN Y Location: ICU CVICU20 2-1 Consult Antibiotic Management Pharmacy has been consulted to manage selected antiobiotic: Vancomycin Type of Intervention Type of Consult: New start Suspected Infection Suspected Infection: Pneumonia Prior Doses of Antibiotics Prior Doses of Antibiotics Received/Current Regimen: Vancomycin 1750 mg IV x 1 given 06/02/23 @ 1312 Labs Labs: Sodium 136 mmol/L (136-145) 06/02/23 09:26 Potassium 3.6 mmol/L (3.5-5.1) 06/02/23 09:26 Chloride 101 mmol/L (98-107) 06/02/23 09:26 Carbon Dioxide 29.0 mmol/L (21.0-32.0) 06/02/23 09:26 Anion Gap 6 (5-15) 06/02/23 09:26 BUN 15 mg/dL (7-18) 06/02/23 09:26 Creatinine 0.87 mg/dL (0.55-1.02) 06/02/23 09:26 Est GFR (MDRD) Af Amer 84 mL/min (>60) 06/02/23 09:26 Est GFR (MDRD) Non-Af 69 mL/min (>60) 06/02/23 09:26 BUN/Creatinine Ratio 17.3 RATIO (10-20) 06/02/23 09:26 Glucose 187 mg/dL (74-106) H 06/02/23 09:26 Dosing Weight Weight used for dosin kg Estimated Creatinine Clearance Estimated Creatinine Clearance: ~54 Goal Trough Goal Trough: 15-20 mcg/mL Pharmacy Plan for Drug Dosing Pharmacy Plan for Drug Dosing: Vancomycin 1750 mg IV loading dose, followed by 750 mg Q12H with a trough prior to the 4th dose. Pharmacy Service will continue to monitor and adjust dosing as required. Follow-Up Labs Follow-Up Labs: Trough: Vancomycin Date/Time Labs Ordered Labs to be done on [date and time ordered]: 06/04/23 @ 0030 06/02/23 1355 <Electronically signed by oJse mcege> Date _ Jose Cantor 06/03/23 0710 <Electronically signed by Adrian Mckeon O> Cosigner Signature (if applicable): Date Adrian Nieves DO CC: ~ Signed [facility] Work Phone: 1(102) 947-691311-30-2023 Consult note Author Adrian Nieves [facility] June 02, 2023 12:50pm Note Date/Time June 02, 2023 12:50pm [facility] Medical Records Department [address] [place] [address] Consultation - Linting Machine Operator 06/02/23 1233 MR#: [id number] Acct: [id number] Name: SNEHA CARDENAS Rep #:[id number] : 1955 68 From: Adrian Nieves DO PCP: Dr. Julio Draper MD Status:A DM IN Location: ICU CVICU 2-1 Assessment & Plan Assessment/Plan (1) Acute exacerbation of chronic obstructive pulmonary disease (COPD): PLAN: Plan RECOMMENDATIONS: 1. Continue AVAPS therapy and wean FiO2 for saturations at or above 90%. 2. Start scheduled bronchodilator therapy. 3. Initiate methylprednisone 40 mg every 6 hours. 4. Continue empiric broad-spectrum antimicrobials. 5. Await results of respiratory viral panel. 6. Check strep and urine Legionella antigens. IMPRESSIONS: 1. Acute and chronic respiratory failure with hypoxemia and hypercapnia secondary to COPD with exacerbation The patient has a known history of COPD and chronic hypoxemic respiratory failure with a baseline 3 L/min oxygen requirement. She is followed regularly by Dr. Magali Nieves at [facility] pulmonary medicine. The patient appears to be in a state of exacerbation secondary to right lower lobe pneumonia. She did have evidence of acute CO2 retention in the emergency department and has been initiated on appropriate noninvasive positive pressure ventilatory support. Plan to continue current supportive measures including PAP therapy, scheduled aerosol treatments, IV steroids and antimicrobials. 2. Sepsis The patient presented to the hospital with sepsis due to probable right lower lobe pneumonia with acute sepsis related organ dysfunction as evidenced by no need for noninvasive positive pressure ventilatory support. The patient has been fluid resuscitated with appropriate response hemodynamically. Cultures arepending. Plan to continue empiric broad-spectrum antimicrobials. 3. History of seasonal allergic rhinitis/history of tobacco dependency, in remission Complicates care, management, recovery and prognosis. Continue home medicationsas indicated. TIME: 35 minutes of critical care time, independent of procedures, was spent addressing the patient's acute on chronic respiratory failure, sepsis, right lower lobe pneumonia, review of all data and collaboration with the care team. HPI Consult Data Date of Consult: 06/02/23 HPI Narrative Reason for Consultation: Acute on chronic respiratory failure HPI Narrative: The patient is a 68-year-old female, with a history as outlined below, who presented to the emergency department on June 02 via EMS with progressive shortness of breath and cough over the last several days. The patient had previously been evaluated in the emergency department yesterday, at which time, a CTA chest was obtained. There was no evidence for pulmonary embolism. However, there was evidence of a right lower lobe pneumonia. The patient had already been previously started on Levaquin. She was discharged from the emergency department with a prescription for Zithromax as well. Despite the aforementioned, the patient reported that her symptoms continue to worsen over the ensuing 24 hours. She has a known history of COPD and is currently followedby Dr. Magali Nieves at [facility]. She has chronic hypoxemic respiratory failure with a baseline oxygen requirement of 3 L/min. The patient has a remote smokinghistory, having quit completely 10 years ago. Rapid COVID and influenza screenswere negative yesterday. On presentation to the emergency department, the patient was documented to be febrile, tachycardic and tachypneic. Her presenting blood pressure was noted ti 79/34 mmHg. Initial laboratory evaluation revealed an elevated white blood cell count to 24,000. Arterial blood gas demonstrated a pH of 7.25 with a PCO2 of 62 and PO2 of 70. Chemistry profile was unrevealing. Lactate was within normal limits. The patient did receive supplemental IV fluid hydration in the emergency department, which subsequently led to improvement in her hemodynamic status. The patient was initiated on BiPAP, along with antimicrobials and aerosol treatments. She was subsequently admitted to the medical intensive care unitfor further management. [facility] Medical History Anxiety Asthma Benign essential hypertension Benign essential tremor COPD (chronic obstructive pulmonary disease) Former tobacco use Migraines On home oxygen therapy Pneumonia due to COVID-19 virus Home Medications albuterol sulfate 90 mcg/actuation aerosol inhaler (Ventolin HFA) 2 puff inhalation Q4H PRN PRN Shortness Of Breath 08/28/15 [History Last Taken 11/30/22 10:00] montelukast 10 mg tablet 10 mg PO QHS ALLERGIES 02/25/18 [History Last Taken 11/29/22] fluticasone fur. 100 mcg-umeclid 62.5 mcg-vilant 25 mcg inhalat.powder (Trelegy Ellipta) 1 inh inhalation DAILY COPD 05/01/21 [History Last Taken 11/30/22] fluticasone propionate 50 mcg/actuation nasal spray,suspension 2 spray intranasal QHS ALLERGIES 05/01/21 [History Last Taken 11/28/22] levofloxacin 750 mg tablet 750 mg PO DAILY #7 tabs 12/03/22 [Rx Last Taken Unknown] prednisone 20 mg tablet 40 mg (2 x 20 mg) PO DAILY 7 days #14 tabs 12/03/22 [Rx Last Taken Unknown] oxycodone-acetaminophen 5 mg-325 mg tablet (Percocet) 1 tab PO Q6H PRN pain 4 days #14 tabs 06/01/23 [Rx Last Taken Unknown] Allergy/AdvReac Type Severity Reaction Status Date / Time cephalexin monohydrate Allergy Chest Verified 06/02/23 08:53 [From Keflex] tightness Surgical History H/O bilateral salpingectomy History of herniorrhaphy Hx of cholecystectomy Hx of tonsillectomy Social History adopted: Yes household members: family housing: house Smoking Status: Former smoker alcohol intake: never substance use type: does not use ROS ROS Narrative 10 systems were reviewed with pertinent positives as noted in the HPI above. Physical Exam Const alert and no apparent distress Constitutional Narrative: BiPAP mask in place. General Appearance: cooperative HEENT normocephalic and head/scalp atraumatic Eyes PERRL, EOMs intact bilaterally and conjunctivae normal Neck supple General: trachea midline Chest inspection of chest normal Resp Effort and Inspection: tachypneic Auscultation: rales, wheezes and diminished lung sounds diffuse Cardio S1 normal heart sound and S2 normal heart sound Rate: tachycardic GI normal to inspection, nondistended, normoactive bowel sounds Extremity no clubbing, cyanosis or edema Skin no rashes or lesions noted Neuro CN's II-XII intact bilaterally and no focal motor deficits Psych Mood & Affect: flat affect Lab / Micro Data 06/02/23 09:26 06/02/23 09:26 Labs: Laboratory Results - last 24 hr 06/02/23 09:26: WBC 23.8 H, RBC 4.09 L, Hgb 11.9 L, Hct 36.8 L, MCV 90.0, MCH 29.1, MCHC 32.3, RDW Std Deviation 41.5, RDW Coeff of Laly 12.5, Plt Count 504 H,MPV 10.0, Immature Gran % (Auto) 0.600, Neut % (Auto) 84.8 H, Lymph % (Auto) 9.2L, Robertson % (Auto) 3.9, Eos % (Auto) 1.1, Baso % (Auto) 0.4, Absolute Neuts (auto)20.2 H, Absolute Lymphs (auto) 2.18, Nucleated RBC % 0, PT 14.7, INR 1.2, APTT 29.1, Sodium 136, Potassium 3.6, Chloride 101, Carbon Dioxide 29.0, Anion Gap 6,BUN 15, Creatinine 0.87, Estim Creat Clear Calc 54.18, Est GFR (MDRD) Af Amer 84, Est GFR (MDRD) Non-Af 69, BUN/Creatinine Ratio 17.3, Glucose 187 H, Lactic Acid 1.6, Calcium 9.4, Total Bilirubin 0.70, AST 18, ALT 14, Alkaline Phosphatase 112, Total Protein 7.9, Albumin 3.0 L, Globulin 4.9 H, Albumin/Globulin Ratio 0.6 L 06/02/23 10:34: Urine Color Yellow, Urine Clarity Cloudy, Urine pH 5.0, Ur Specific Paradise 1.030, Urine Protein 100 H, Urine Glucose (UA) Normal, Urine Ketones 5 H, Urine Occult Blood 150 H, Urine Nitrite Negative, Urine Bilirubin Negative, Urine Urobilinogen Normal, Ur Leukocyte Esterase Negative, Urine RBC 0-5 SEEN, Urine WBC 0 SEEN, Ur Squamous Epith Cells 0-5 SEEN, Urine Bacteria 1+,Hyaline Casts 0-5 SEEN, Urine Mucus 2+ ABG Data ABG results: ABG 06/02/23 09:53 Specimen Type ART Sample Site R Brach pH 7.25 L Bicarbonate Actual 26.9 H Total CO2 29 Base Excess 0 O2 Saturation 90 L O2 % 3.0 ABG pCO2 62.0 H ABG pO2 70 L O2 Delivery Device Not entered Vent Mode Not entered Rhythm Strip Rhythm Strip: Sinus Tach Rate: 120 Ectopy: None Imagaing Radiology Impression Chest X-Ray 06/02/23 09:11 IMPRESSION: Small right pleural effusion with right basilar infiltrate. Electronically Signed: Michael Gaxiola MD at 10:05 EST Reading Location ID and State: [address] [place] [address] , Service support , Charges/Coding Procedures Hospitalists Procedures: [id number] Critial Care 1st Hr 06/02/23 1250 <Electronically signed by Adrian Nieves DO> Cosigner Signature (if applicable): CC: ALFRED Jovel; Dr. Kapil Doyle MD; Dr. Adrian Nieves DO; Dr. Pao Weeks MD; Dr. Ford Graff MD; Dr. Julio Draper MD~ Signed [facility] Work Phone: [phone]) 992-935511-30-2023 Discharge summary Author Mikael Swartz [facility] June 02, 2023 11:11am Note Date/Time June 02, 2023 9:21[facility] Medical Records Department [address] [place] [address] Emergency Department Summary 06/02/23 MR#: [id number] Acct: [id number] Name: SNEHA CARDENAS Rep #:[id number] : 1955 68 From: Mikael Swartz MD PCP: Dr. Julio Draper MD Status:R EG ER Location: ED HPI History of Present Illness Chief Complaint: Shortness of Breath Informant: patient and spouse/S.O. Onset/Context/Timing Onset: Days (3) Context: gradual and onset Timing: Continuous Current Severity: Severe Maximum Severity: Severe Relieved by: Albuterol (until this AM) Narrative Narrative: 68-year-old female on home oxygen for COPD diagnosed with pneumonia in the rightlung 2-3 days ago here in the ER also with a lung mass that was previously unknown although she has had nodules in the right lung before according to the significant other. According to him, she has been declining ever since she was sent home. She states albuterol treatments were helping temporarily until todaywhere they were not. She was discharged home on antibiotics and steroids she has not taken it today yet. [facility] Medical History Anxiety Asthma Benign essential hypertension Benign essential tremor COPD (chronic obstructive pulmonary disease) Former tobacco use Migraines On home oxygen therapy Pneumonia due to COVID-19 virus Home Medications albuterol sulfate 90 mcg/actuation aerosol inhaler (Ventolin HFA) 2 puff inhalation Q4H PRN PRN Shortness Of Breath 08/28/15 [History Last Taken 11/30/22 10:00] montelukast 10 mg tablet 10 mg PO QHS ALLERGIES 02/25/18 [History Last Taken 11/29/22] fluticasone fur. 100 mcg-umeclid 62.5 mcg-vilant 25 mcg inhalat.powder (Trelegy Ellipta) 1 inh inhalation DAILY COPD 05/01/21 [History Last Taken 11/30/22] fluticasone propionate 50 mcg/actuation nasal spray,suspension 2 spray intranasal QHS ALLERGIES 05/01/21 [History Last Taken 11/28/22] levofloxacin 750 mg tablet 750 mg PO DAILY #7 tabs 12/03/22 [Rx Last Taken Unknown] prednisone 20 mg tablet 40 mg (2 x 20 mg) PO DAILY 7 days #14 tabs 12/03/22 [Rx Last Taken Unknown] oxycodone-acetaminophen 5 mg-325 mg tablet (Percocet) 1 tab PO Q6H PRN pain 4 days #14 tabs 06/01/23 [Rx Last Taken Unknown] Allergy/AdvReac Type Severity Reaction Status Date / Time cephalexin monohydrate Allergy Chest Verified 06/02/23 08:53 [From Keflex] tightness Surgical History H/O bilateral salpingectomy History of herniorrhaphy Hx of cholecystectomy Hx of tonsillectomy Social History adopted: Yes household members: family housing: house Smoking Status: Former smoker alcohol intake: never substance use type: does not use ROS ROS ED Review of Systems ROS Unobtainable: other Details: Limited ROS due to acuity Constitutional Constitutional ED: Reports chills, fatigue, fever(s) and malaise Eyes Eyes: Denies change in vision Cardiovascular Cardiovascular: Reports chest pain; Denies palpitations Respiratory/Chest Respiratory/Chest: Reports cough and dyspnea Gastrointestinal Gastrointestinal: Reports diarrhea; Denies abdominal pain, nausea or vomiting Genitourinary Genitourinary ED: Denies dysuria or hematuria Musculoskeletal Musculoskeletal: Denies neck pain Integumentary Denies abscess or rash Neurologic Neurologic: Denies paresthesias or weakness EXAM Physical Exam Const Vital Signs: 06/02/23 08:59 06/02/23 09:03 06/02/23 09:07 Temperature 100.9 F H 100.9 F H Temperature Source Temporal Temporal Pulse Rate 122 H 124 H Respiratory Rate 35 H 35 H Respiratory Effort Short of Breath Labored Accessory Muscle Use Respiratory Depth Shallow Respiratory Pattern Tachypnea Blood Pressure 79/34 L 79/34 L Blood Pressure Mean 49 49 Pulse Ox 99 98 Oxygen Delivery Method Nasal Cannula Venturi Mask Fraction of Inspired Oxygen (FIO2) 06/02/23 09:11 06/02/23 09:41 06/02/23 09:35 Temperature Temperature Source Pulse Rate 120 H 122 H Respiratory Rate 29 H 33 H Respiratory Effort Respiratory Depth Respiratory Pattern Tachypnea Tachypnea Blood Pressure Blood Pressure Mean Pulse Ox 95 Oxygen Delivery Method Venturi Mask Fraction of Inspired Oxygen (FIO2) 50 06/02/23 10:00 06/02/23 09:53 Temperature Temperature Source Pulse Rate 118 H 113 H Respiratory Rate 28 H 30 H Respiratory Effort Respiratory Depth Respiratory Pattern Tachypnea Blood Pressure 97/85 H Blood Pressure Mean 89 Pulse Ox 93 98 Oxygen Delivery Method Bi-pap Fraction of Inspired Oxygen (FIO2) 50 Positive well nourished and well developed Constitutional Narrative: Ill-appearing, moderate respiratory distress General Appearance ED: well developed and NAD HEENT Reports moist mucous membranes normocephalic and atraumatic Eyes PERRL and EOMs intact bilaterally Neck full ROM, supple and no meningeal signs Neck Narrative: Tracheal tugging with inspiration Resp Resp Narrative: In acute respiratory distress with retractions. Poor air movement, diminished throughout, more diminished on the right than the left, trachea midline. Cardio regular rate and regular rhythm Rate: tachycardic GI non-tender and non-distended Auscultation: normoactive bowel sounds Palpation: soft Back/Spine no CVA tenderness General Back: other FROM Extremity normal to inspection and no calf tenderness General Extremety ED: Negative for edema, pulses abnormal or tenderness General Extremity: Negative for edema or pulses abnormal Neuro oriented x3, CN's II-XII intact bilaterally and no sensory deficits noted Neuro Narrative: Moving all 4 extremities equally. Answering questions 1-3 word sentences, appropriately Sensorium / Orientation: awake and alert Speech: speech normal Motor Exam: general weakness Psych Mood & Affect: anxious Skin no rashes or lesions noted and no wounds Sepsis Attestation Sepsis Alert: Yes Sepsis Attestation: Agree w/Sepsis Date exam was performed: 06/02/23 Time exam was performed: 09:27 Possible Source of Sepsis: Pulmonary Sepsis Organ Dysfunction Criteria Present: SBP < 90 mmHg or MAP < 65 mmHg and Acute Respiratory Failure (New need for BiPAP/CPAP or MV) Fluid Resuscitation Fluid resuscitation indicated?: Yes Fluid Resuscitation ordered: 30 ml/kg fluid bolus ordered Amount of fluid ordered: 2,250 Sepsis Note Date exam was performed: 06/02/23 Time exam was performed: 10:43 Sepsis Attestation: Sepsis re-evaluation was performed Response to fluids: Fluid responsive hypotension (125/69) MDM MDM MDM Narrative Medical decision making narrative: Patient appears very ill and is hypotensive, tachycardic. Septic workup orderedalong with 30 cc/kg IV fluid bolus, and respiratory called emergently to put thepatient on BiPAP. Prior to getting onto the machine, I had a bharat discussion with the patient that she clearly is struggling to breathe and needs help, and if this fails she confirms it would be okay to intubate her. I had BiPAP put her on AVAPS mode in order to try to assess tidal volumes while providing beta agonist and IV steroid therapy. She seems to be doing okay on the BiPAP, pulling the 450 tidal volumes that we set, and helping her work of breathing. Therefore we elected to continue watching her on this, an ABG to be obtained. ABG shows what appears to be a pure acute respiratory acidosis due to hypercapnia, confirming need for BiPAP. Baseline pCO2 appears to be about 37, she is 62 today. She was very anxious with this, I felt the benefits of a smalldose of IV Ativan outweigh the risks in order to allow her to stay on BiPAP and avoid intubation. 631 view on my interpretation consistent with right lower lobe pneumonia and parapneumonic effusion, radiology in agreement, her other labs are noted. Prior to today patient has been on Levaquin and Zithromax. She has an allergy to cephalexin, listed as chest tightness. Assuming this could be anaphylactoid in nature, following the sepsis treatment protocol and trying to choose an antibiotic different than Levaquin, assuming she could be septic shock until proven otherwise, I have started doses of meropenem and ciprofloxacin. Discussed with critical care, agrees with the above management. Discussed viralswabs, COVID and influenza were obtained 2 days ago and negative, will add the other viral panel. History & Record Review Additional record(s) reviewed:: Prior outpatient record (Old pCO2 May this year), Prior ED visit and Other (CTA from yesterday showing nodules & calcified granulomas, no mass noted, no PE, small right pleural effusion and possible infiltrate) Lab Data Attestation: I reviewed the patient's lab results. Labs: Laboratory Results - last 24 hr 06/02/23 06/02/23 09:26 10:34 WBC 23.8 H RBC 4.09 L Hgb 11.9 L Hct 36.8 L MCV 90.0 MCH 29.1 MCHC 32.3 RDW Std Deviation 41.5 RDW Coeff of Laly 12.5 Plt Count 504 H MPV 10.0 Immature Gran % (Auto) 0.600 Neut % (Auto) 84.8 H Lymph % (Auto) 9.2 L Robertson % (Auto) 3.9 Eos % (Auto) 1.1 Baso % (Auto) 0.4 Absolute Neuts (auto) 20.2 H Absolute Lymphs (auto) 2.18 Nucleated RBC % 0 PT 14.7 INR 1.2 APTT 29.1 Sodium 136 Potassium 3.6 Chloride 101 Carbon Dioxide 29.0 Anion Gap 6 BUN 15 Creatinine 0.87 Estim Creat Clear Calc 54.18 Est GFR (MDRD) Af Amer 84 Est GFR (MDRD) Non-Af 69 BUN/Creatinine Ratio 17.3 Glucose 187 H Lactic Acid 1.6 Calcium 9.4 Total Bilirubin 0.70 AST 18 ALT 14 Alkaline Phosphatase 112 Total Protein 7.9 Albumin 3.0 L Globulin 4.9 H Albumin/Globulin Ratio 0.6 L Urine Color Yellow Urine Clarity Cloudy Urine pH 5.0 Ur Specific [place] 1.030 Urine Protein 100 H Urine Glucose (UA) Normal Urine Ketones 5 H Urine Occult Blood 150 H Urine Nitrite Negative Urine Bilirubin Negative Urine Urobilinogen Normal Ur Leukocyte Esterase Negative Urine RBC 0-5 SEEN Urine WBC 0 SEEN Ur Squamous Epith Cells 0-5 SEEN Urine Bacteria 1+ Hyaline Casts 0-5 SEEN Urine Mucus 2+ ABG Data Attestation: I personally reviewed and interpreted this ABG as follows: ABG results: ABG 06/02/23 09:53 Specimen Type ART Sample Site R Brach pH 7.25 L Bicarbonate Actual 26.9 H Total CO2 29 Base Excess 0 O2 Saturation 90 L O2 % 3.0 ABG pCO2 62.0 H ABG pO2 70 L O2 Delivery Device Not entered Vent Mode Not entered Radiography Diagnostic Testing: Clinical Impression(s) from Imaging Studies Chest X-Ray 06/02/23 09:11 IMPRESSION: Small right pleural effusion with right basilar infiltrate. Electronically Signed: Michael Gaxiola MD at 10:05 EST , Rhythm Strip Rhythm Strip: Sinus Tach Rate: 120 Ectopy: None EKG Initial EKG: Attestation: I personally reviewed and interpreted this EKG as follows: Interpretation: No Acute Injury Pattern and Sinus Tachycardia Management Discussion w/another healthcare provider: Hospitalist and Health Education Teacher (alonso Nieves) Critical Care Time Critical Care Time: Yes Critical care time (excluding procedures): 30-74 minutes (40 min), Including time spent:, Discussing w/Patient &/or Family/Rat Breeder, Discussing w/Consultants, Arranging Admission or Transfer and Performing Direct Patient Care at Bedside Discharge Plan Dx/Rx/DC Orders Clinical Impression: Acute and chronic respiratory failure, unspecified whether with hypoxia or hypercapnia, Acute exacerbation of chronic obstructive pulmonary disease (COPD),Community acquired pneumonia of right lower lobe of lung, Failure of outpatient treatment, Lung nodules, Parapneumonic effusion Disposition Disposition: [facility] What to do if you have Problems For any increased pain, shortness of breath, bleeding, nausea or vomiting, chestpain, or any unexpected problems, contact your Primary Care Provider. Call [facility] ([phone]) or report to the closest Emergency Room. Call 911 if necessary. 06/02/23 1111 <Electronically signed by Mikael Swartz MD> Cosigner Signature (if applicable): CC: Dr. Julio Draper MD ~ Signed [facility] Work Phone: 1(300) 852-571411-30-2023 Discharge summary Author Mikael Swartz [facility] June 02, 2023 11:11am Note Date/Time June 02, 2023 9:21am [facility] Medical Records Department [address] [place] [id number] Emergency Department Summary 06/02/23 MR#: [id number] Acct: [id number] Name: SNEHA CARDENAS Rep #:[id number] : 1955 68 From: Mikael Swartz MD PCP: Dr. Julio Draper MD Status:R EG ER Location: ED HPI History of Present Illness Chief Complaint: Shortness of Breath Informant: patient and spouse/S.O. Onset/Context/Timing Onset: Days (3) Context: gradual and onset Timing: Continuous Current Severity: Severe Maximum Severity: Severe Relieved by: Albuterol (until this AM) Narrative Narrative: 68-year-old female on home oxygen for COPD diagnosed with pneumonia in the rightlung 2-3 days ago here in the ER also with a lung mass that was previously unknown although she has had nodules in the right lung before according to the significant other. According to him, she has been declining ever since she was sent home. She states albuterol treatments were helping temporarily until todaywhere they were not. She was discharged home on antibiotics and steroids she has not taken it today yet. PFSH PFSH Medical History Anxiety Asthma Benign essential hypertension Benign essential tremor COPD (chronic obstructive pulmonary disease) Former tobacco use Migraines On home oxygen therapy Pneumonia due to COVID-19 virus Home Medications albuterol sulfate 90 mcg/actuation aerosol inhaler (Ventolin HFA) 2 puff inhalation Q4H PRN PRN Shortness Of Breath 08/28/15 [History Last Taken 11/30/22 10:00] montelukast 10 mg tablet 10 mg PO QHS ALLERGIES 02/25/18 [History Last Taken 11/29/22] fluticasone fur. 100 mcg-umeclid 62.5 mcg-vilant 25 mcg inhalat.powder (Trelegy Ellipta) 1 inh inhalation DAILY COPD 05/01/21 [History Last Taken 11/30/22] fluticasone propionate 50 mcg/actuation nasal spray,suspension 2 spray intranasal QHS ALLERGIES 05/01/21 [History Last Taken 11/28/22] levofloxacin 750 mg tablet 750 mg PO DAILY #7 tabs 12/03/22 [Rx Last Taken Unknown] prednisone 20 mg tablet 40 mg (2 x 20 mg) PO DAILY 7 days #14 tabs 12/03/22 [Rx Last Taken Unknown] oxycodone-acetaminophen 5 mg-325 mg tablet (Percocet) 1 tab PO Q6H PRN pain 4 days #14 tabs 06/01/23 [Rx Last Taken Unknown] Allergy/AdvReac Type Severity Reaction Status Date / Time cephalexin monohydrate Allergy Chest Verified 06/02/23 08:53 [From Keflex] tightness Surgical History H/O bilateral salpingectomy History of herniorrhaphy Hx of cholecystectomy Hx of tonsillectomy Social History adopted: Yes household members: family housing: house Smoking Status: Former smoker alcohol intake: never substance use type: does not use ROS ROS ED Review of Systems ROS Unobtainable: other Details: Limited ROS due to acuity Constitutional Constitutional ED: Reports chills, fatigue, fever(s) and malaise Eyes Eyes: Denies change in vision Cardiovascular Cardiovascular: Reports chest pain; Denies palpitations Respiratory/Chest Respiratory/Chest: Reports cough and dyspnea Gastrointestinal Gastrointestinal: Reports diarrhea; Denies abdominal pain, nausea or vomiting Genitourinary Genitourinary ED: Denies dysuria or hematuria Musculoskeletal Musculoskeletal: Denies neck pain Integumentary Denies abscess or rash Neurologic Neurologic: Denies paresthesias or weakness EXAM Physical Exam Const Vital Signs: 06/02/23 08:59 06/02/23 09:03 06/02/23 09:07 Temperature 100.9 F H 100.9 F H Temperature Source Temporal Temporal Pulse Rate 122 H 124 H Respiratory Rate 35 H 35 H Respiratory Effort Short of Breath Labored Accessory Muscle Use Respiratory Depth Shallow Respiratory Pattern Tachypnea Blood Pressure 79/34 L 79/34 L Blood Pressure Mean 49 49 Pulse Ox 99 98 Oxygen Delivery Method Nasal Cannula Venturi Mask Fraction of Inspired Oxygen (FIO2) 06/02/23 09:11 06/02/23 09:41 06/02/23 09:35 Temperature Temperature Source Pulse Rate 120 H 122 H Respiratory Rate 29 H 33 H Respiratory Effort Respiratory Depth Respiratory Pattern Tachypnea Tachypnea Blood Pressure Blood Pressure Mean Pulse Ox 95 Oxygen Delivery Method Venturi Mask Fraction of Inspired Oxygen (FIO2) 50 06/02/23 10:00 06/02/23 09:53 Temperature Temperature Source Pulse Rate 118 H 113 H Respiratory Rate 28 H 30 H Respiratory Effort Respiratory Depth Respiratory Pattern Tachypnea Blood Pressure 97/85 H Blood Pressure Mean 89 Pulse Ox 93 98 Oxygen Delivery Method Bi-pap Fraction of Inspired Oxygen (FIO2) 50 Positive well nourished and well developed Constitutional Narrative: Ill-appearing, moderate respiratory distress General Appearance ED: well developed and NAD HEENT Reports moist mucous membranes normocephalic and atraumatic Eyes PERRL and EOMs intact bilaterally Neck full ROM, supple and no meningeal signs Neck Narrative: Tracheal tugging with inspiration Resp Resp Narrative: In acute respiratory distress with retractions. Poor air movement, diminished throughout, more diminished on the right than the left, trachea midline. Cardio regular rate and regular rhythm Rate: tachycardic GI non-tender and non-distended Auscultation: normoactive bowel sounds Palpation: soft Back/Spine no CVA tenderness General Back: other FROM Extremity normal to inspection and no calf tenderness General Extremety ED: Negative for edema, pulses abnormal or tenderness General Extremity: Negative for edema or pulses abnormal Neuro oriented x3, CN's II-XII intact bilaterally and no sensory deficits noted Neuro Narrative: Moving all 4 extremities equally. Answering questions 1-3 word sentences, appropriately Sensorium / Orientation: awake and alert Speech: speech normal Motor Exam: general weakness Psych Mood & Affect: anxious Skin no rashes or lesions noted and no wounds Sepsis Attestation Sepsis Alert: Yes Sepsis Attestation: Agree w/Sepsis Date exam was performed: 06/02/23 Time exam was performed: 09:27 Possible Source of Sepsis: Pulmonary Sepsis Organ Dysfunction Criteria Present: SBP < 90 mmHg or MAP < 65 mmHg and Acute Respiratory Failure (New need for BiPAP/CPAP or MV) Fluid Resuscitation Fluid resuscitation indicated?: Yes Fluid Resuscitation ordered: 30 ml/kg fluid bolus ordered Amount of fluid ordered: 2,250 Sepsis Note Date exam was performed: 06/02/23 Time exam was performed: 10:43 Sepsis Attestation: Sepsis re-evaluation was performed Response to fluids: Fluid responsive hypotension (125/69) MDM MDM MDM Narrative Medical decision making narrative: Patient appears very ill and is hypotensive, tachycardic. Septic workup orderedalong with 30 cc/kg IV fluid bolus, and respiratory called emergently to put thepatient on BiPAP. Prior to getting onto the machine, I had a bharat discussion with the patient that she clearly is struggling to breathe and needs help, and if this fails she confirms it would be okay to intubate her. I had BiPAP put her on AVAPS mode in order to try to assess tidal volumes while providing beta agonist and IV steroid therapy. She seems to be doing okay on the BiPAP, pulling the 450 tidal volumes that we set, and helping her work of breathing. Therefore we elected to continue watching her on this, an ABG to be obtained. ABG shows what appears to be a pure acute respiratory acidosis due to hypercapnia, confirming need for BiPAP. Baseline pCO2 appears to be about 37, she is 62 today. She was very anxious with this, I felt the benefits of a smalldose of IV Ativan outweigh the risks in order to allow her to stay on BiPAP and avoid intubation. 631 view on my interpretation consistent with right lower lobe pneumonia and parapneumonic effusion, radiology in agreement, her other labs are noted. Prior to today patient has been on Levaquin and Zithromax. She has an allergy to cephalexin, listed as chest tightness. Assuming this could be anaphylactoid in nature, following the sepsis treatment protocol and trying to choose an antibiotic different than Levaquin, assuming she could be septic shock until proven otherwise, I have started doses of meropenem and ciprofloxacin. Discussed with critical care, agrees with the above management. Discussed viralswabs, COVID and influenza were obtained 2 days ago and negative, will add the other viral panel. History & Record Review Additional record(s) reviewed:: Prior outpatient record (Old pCO2 May this year), Prior ED visit and Other (CTA from yesterday showing nodules & calcified granulomas, no mass noted, no PE, small right pleural effusion and possible infiltrate) Lab Data Attestation: I reviewed the patient's lab results. Labs: Laboratory Results - last 24 hr 06/02/23 06/02/23 09:26 10:34 WBC 23.8 H RBC 4.09 L Hgb 11.9 L Hct 36.8 L MCV 90.0 MCH 29.1 MCHC 32.3 RDW Std Deviation 41.5 RDW Coeff of Laly 12.5 Plt Count 504 H MPV 10.0 Immature Gran % (Auto) 0.600 Neut % (Auto) 84.8 H Lymph % (Auto) 9.2 L Robertson % (Auto) 3.9 Eos % (Auto) 1.1 Baso % (Auto) 0.4 Absolute Neuts (auto) 20.2 H Absolute Lymphs (auto) 2.18 Nucleated RBC % 0 PT 14.7 INR 1.2 APTT 29.1 Sodium 136 Potassium 3.6 Chloride 101 Carbon Dioxide 29.0 Anion Gap 6 BUN 15 Creatinine 0.87 Estim Creat Clear Calc 54.18 Est GFR (MDRD) Af Amer 84 Est GFR (MDRD) Non-Af 69 BUN/Creatinine Ratio 17.3 Glucose 187 H Lactic Acid 1.6 Calcium 9.4 Total Bilirubin 0.70 AST 18 ALT 14 Alkaline Phosphatase 112 Total Protein 7.9 Albumin 3.0 L Globulin 4.9 H Albumin/Globulin Ratio 0.6 L Urine Color Yellow Urine Clarity Cloudy Urine pH 5.0 Ur Specific [place] 1.030 Urine Protein 100 H Urine Glucose (UA) Normal Urine Ketones 5 H Urine Occult Blood 150 H Urine Nitrite Negative Urine Bilirubin Negative Urine Urobilinogen Normal Ur Leukocyte Esterase Negative Urine RBC 0-5 SEEN Urine WBC 0 SEEN Ur Squamous Epith Cells 0-5 SEEN Urine Bacteria 1+ Hyaline Casts 0-5 SEEN Urine Mucus 2+ ABG Data Attestation: I personally reviewed and interpreted this ABG as follows: ABG results: ABG 06/02/23 09:53 Specimen Type ART Sample Site R Brach pH 7.25 L Bicarbonate Actual 26.9 H Total CO2 29 Base Excess 0 O2 Saturation 90 L O2 % 3.0 ABG pCO2 62.0 H ABG pO2 70 L O2 Delivery Device Not entered Vent Mode Not entered Radiography Diagnostic Testing: Clinical Impression(s) from Imaging Studies Chest X-Ray 06/02/23 09:11 IMPRESSION: Small right pleural effusion with right basilar infiltrate. Electronically Signed: Michael Gaxiola MD at 10:05 EST , Rhythm Strip Rhythm Strip: Sinus Tach Rate: 120 Ectopy: None EKG Initial EKG: Attestation: I personally reviewed and interpreted this EKG as follows: Interpretation: No Acute Injury Pattern and Sinus Tachycardia Management Discussion w/another healthcare provider: Hospitalist and Health Education Teacher (alonso Nieves) Critical Care Time Critical Care Time: Yes Critical care time (excluding procedures): 30-74 minutes (40 min), Including time spent:, Discussing w/Patient &/or Family/Rat Breeder, Discussing w/Consultants, Arranging Admission or Transfer and Performing Direct Patient Care at Bedside Discharge Plan Dx/Rx/DC Orders Clinical Impression: Acute and chronic respiratory failure, unspecified whether with hypoxia or hypercapnia, Acute exacerbation of chronic obstructive pulmonary disease (COPD),Community acquired pneumonia of right lower lobe of lung, Failure of outpatient treatment, Lung nodules, Parapneumonic effusion Disposition Disposition: Acute Care Hospital [facility] What to do if you have Problems For any increased pain, shortness of breath, bleeding, nausea or vomiting, chestpain, or any unexpected problems, contact your Primary Care Provider. Call [facility] ([phone]) or report to the closest Emergency Room. Call 911 if necessary. 06/02/23 1111 <Electronically signed by Mikael Swartz MD> Cosigner Signature (if applicable): CC: Dr. Julio Draper MD ~ Signed [facility] Work Phone: 1(709) 507-188711-29-2023 Discharge summary Author Hoang Foster [facility] June 01, 2023 6:09am Note Date/Time June 01, 2023 6:10am [facility] Medical Records Department [address] [place] [address] Emergency Department Summary 06/01/23 MR#: [id number] Acct: [id number] Name: SNEHA CARDENAS Rep #:[id number] : 1955 68 From: Hoang Foster DO PCP: Dr. Julio Draper MD Status:R EG ER Location: ED HPI Narrative Narrative: Sneha Hendersonkler 1955 HPI: Patient is a 68-year-old female with past medical history of pulmonary nodules who wears 2 to 3 L nasal cannula oxygen 24/. ?She states she had a CT scan roughly 1 week ago which showed that her nodules are at baseline with a there maria guadalupe new nodule which is enlarged and she will need a PET scan and potential biopsy.? She states that after that scan she began developing fevers and chills and increased shortness of breath and was therefore placed on Levaquin. ?She says she has had that for approximately 48 hours but has not had any symptom improvement.? She states there is pain along the right anterior chest wall that is worse with palpation and motion and she has concern for infection as the cause and therefore comes in for evaluation Review of systems: Review of systems is positive for fevers and chills and fatigue with cough shortness of breath and right rib pain Review of systems is negative for abdominal pain nausea vomiting diarrhea dysuria or diaphoresis Physical exam: General: Awake alert no acute distress Heart: Heart is regular rate and rhythm without murmurs rubs or gallops.? Radialand carotid pulses are equal and symmetric Lungs: Breath sounds are diminished throughout with faint expiratory wheeze in the bilateral bases but no nasal flaring retractions tachypnea or accessory muscle use Abdomen: Abdomen is soft nontender and nondistended with normal active bowel sounds no voluntary guarding rigidity or pulsatile mass Extremities: No asymmetric edema no pitting edema negative Homans' sign bilaterally Chest: There is a reducible right anterior lateral chest wall pain with palpation without bony deformity or crepitance Skin: No overlying erythema or warmth or rash to suggest infection no ecchymosisor abrasions to suggest trauma Medical decision making: Patient presented to the ER satting 93 to 95% on her normal oxygen. ?She reported that she has had right-sided chest pain without trauma and has had fever and cough and therefore differential diagnosis is for pneumonia versus pleural effusion versus pneumothorax but as she also reports history of lung nodules with potential cancer she is at risk for a pulmonary embolus.? Secondaryto his basic labs were obtained as well as a CTA of the chest. ?Labs revealed leukocytosis at 13 but otherwise no clinically significant finding. ?CT of the chest revealed no PE or pneumothorax but did question pneumonia versus effusion on the right where she has her pain. ?Based on her elevated white count and reported temperature I do feel this is pneumonia.? However the patient is not requiring extra oxygen from her baseline and she is not hypotensive or tachycardic and therefore does not qualify as sepsis and does not need admitted.?She is already on Levaquin so she is to continue this but Zithromax will be added for atypical coverage. ?She understands to take both medications until they are completed and she agrees to return if symptoms are failing to improve however at this time as she is not showing signs of sepsis or increased respiratory distress requiring increased oxygen from her baseline she is safe for discharge. Diagnosis: Right lower lobe pneumonia Pulmonary nodules PFSH [facility] Medical History Anxiety Asthma Benign essential hypertension Benign essential tremor COPD (chronic obstructive pulmonary disease) Former tobacco use Migraines On home oxygen therapy Pneumonia due to COVID-19 virus Home Medications albuterol sulfate 90 mcg/actuation aerosol inhaler (Ventolin HFA) 2 puff inhalation Q4H PRN PRN Shortness Of Breath 08/28/15 [History Last Taken 11/30/22 10:00] montelukast 10 mg tablet 10 mg PO QHS ALLERGIES 02/25/18 [History Last Taken 11/29/22] fluticasone fur. 100 mcg-umeclid 62.5 mcg-vilant 25 mcg inhalat.powder (Trelegy Ellipta) 1 inh inhalation DAILY COPD 05/01/21 [History Last Taken 11/30/22] fluticasone propionate 50 mcg/actuation nasal spray,suspension 2 spray intranasal QHS ALLERGIES 05/01/21 [History Last Taken 11/28/22] levofloxacin 750 mg tablet 750 mg PO DAILY #7 tabs 12/03/22 [Rx Last Taken Unknown] prednisone 20 mg tablet 40 mg (2 x 20 mg) PO DAILY 7 days #14 tabs 12/03/22 [Rx Last Taken Unknown] Allergy/AdvReac Type Severity Reaction Status Date / Time cephalexin monohydrate Allergy Chest Verified 11/30/22 10:40 [From Keflex] tightness Surgical History H/O bilateral salpingectomy History of herniorrhaphy Hx of cholecystectomy Hx of tonsillectomy Social History adopted: Yes household members: family housing: house Smoking Status: Former smoker alcohol intake: never substance use type: does not use MDM MDM Radiography Diagnostic Testing: Clinical Impression(s) from Imaging Studies Chest CTA 06/01/23 02:35 IMPRESSION: 1. No pulmonary embolism. 2. Right lower lobe pneumonia versus atelectasis and small right pleural effusion. Electronically Signed: Garo Crawford DO at 3:59 EST , Discharge Plan Triage ED Provider: Hoang Foster Dx/Rx/DC Orders Clinical Impression: Pulmonary nodules, Right lower lobe pneumonia Prescriptions: No Action albuterol sulfate [Ventolin HFA] 1 INHALER inhaler 2 puff inhalation Q4H PRN PRN (Reason: Shortness Of Breath) Patient Comments: shortness of breath montelukast 10 MG tablet 10 mg PO QHS fluticasone propionate 50 mcg/actuation spray,suspension 2 spray INTRANASAL QHS Patient Comments: Use 1 [place] in each nostril once daily. Trelegy Ellipta 100-62.5-25 mcg blister with device 1 inh INHALATION DAILY Patient Comments: Inhale 1 Puff as instructed once daily. levofloxacin 750 mg tablet 750 mg PO DAILY Qty: 7 0RF prednisone 20 mg tablet 40 mg PO DAILY 7 Days Qty: 14 0RF Primary Care Provider: Julio Draper Referrals: Julio Draper MD [Primary Care Provider] - Disposition Disposition: Home, Self Care What to do if you have Problems For any increased pain, shortness of breath, bleeding, nausea or vomiting, chestpain, or any unexpected problems, contact your Primary Care Provider. Call [facility] ([phone]) or report to the closest Emergency Room. Call 911 if necessary. 06/01/23 0609 <Electronically signed by Hoang Foster DO> Cosigner Signature (if applicable): CC: Dr. Julio Draper MD ~ Signed [facility] Work Phone: 1(505) 681-763411-27-2023 Miscellaneous Notes* Telephone Encounter - Luna Swartz PA-C - 05/30/2023 12:08 PM EST Discussed results with patient. There is a new lung nodule in RLL. Will treat with Levaquin in hopes that it is infectious. Will obtain PET scan. Patient may need biopsy, which will be further discussed at upcoming appointment on 06/[address] Nieves. Paulette * Telephone Encounter - Rekha Nieves LPN - 05/30/2023 11:37 AM EST Patient calling, verified / name, regarding recent [...] severity of pain. Please advise patient at [phone] . Rekha Nieves LPN [facility] History of Present illness Narrative* Jacinto Blanchard RT(R) - 05/25/2023 3:00 PM EST Radiology Service Progress Note PATIENT NAME: Sneha Cardenas DATE OF SERVICE: May 25, 2023 TIME: 3:29 PM PATIENT IDENTITY VERIFICATION COMPLETED USING TWO (2) IDENTIFIERS: Name and Date of confirmedby patient verbally. FALL SCREENING: Has the patient [...] 25, 2023 3:29 PM [facility] Miscellaneous Notes* Telephone Encounter - Jacinto Solorio LPN - 04/27/2023 10:48 AM EDT Plan of Treatment faxed to [facility]. Jacinto Solorio LPN [facility] History of Present illness Narrative* Magali Nieves MD - 03/03/2023 2:15 PM EDT Images from the original note were not included. . [facility] [place] Note Patient name: Sneha Cardenas PCP: Julio Draper MD CC: Oxygen assessment HPI: Sneha Cardenas 67 year old female former < 20 pack year smoker with PMH significant for tremors, HTN, COVID PNA 04/2021, chronic hypoxemic respiratory failure, severe COPD/emphysema, GGO (due for chest CT in May. Patient just seen in clinic in December after hospital stay for PNA. No newproblems since then. She presents today for visit due to desire to have a POC for ease of use of por table oxygen. Large tanks too heavy and small [...] January 21, 2022 TIME: 3:19 PM DME: [facility] PAST MEDICAL HISTORY Diagnosis Date Asthma Benign essential tremor COPD (chronic obstructive pulmonary disease) ([facility]) 07/25/2012 FEV1 0.84L (32%), 10/18/2014 DDD (degenerative [...] 1 tablet by mouth daily at bedtime. [id number] (TRELEGY ELLIPTA) 100-62.5-25 mcg inhalation powder Inhale 1 Puff asinstructed once daily. albuterol HFA (PROAIR HFA) 90 [...] nebu Inhale 3 mL as instructed every 4hours as needed for wheezing/shortness of breath. Social [...] Laterality Date ARTHROPLASTY TOTAL SHOULDER Right 02/2018 [facility]. Garo Stanford MD BREAST BIOPSY Left 30 [...] -Qualifies for portable oxygen -Resend prescription to [facility] Former smoker -Former less than 20 pack year smoker with severe COPD/emphysema -Due for chest CT in May Magali Nieves MD [facility] [place] documented [facility] [facility] Miscellaneous Notes* Telephone Encounter - Abimbola Lewis LPN - 02/22/2023 1:16 PM EDT Faxed. Abimbola Lewis LPN * Telephone Encounter - Luna Mariano - 02/22/2023 12:25 PM EDT Ashleigh called requesting orders for POC and last office visit notes to be faxed. She states she talked to somebody last week but I see no documentation. Thanks Luna Mariano MA [facility] History of Present illness Narrative* Magali Nieves MD - 02/15/2023 2:33 PM EDT Needs portable oxygen [facility]07[facility]23 Miscellaneous Notes* Telephone Encounter - Reuben, Anushkagloria Doyle LPN - 01/18/2023 11:16 AM EDT Patient has been identified by name and [...] Not applicable Please advise. Thank you. Anushka Reuben DANIEL * Telephone Encounter - Luna Portillo - 01/18/2023 10:26 AM EDT Pharmacy verified in Epic Patient has been identified by name and date of : Yes Patient requesting a call when RX is approved and sent to the pharmacy. Please call patient at: [phone] Patient phones for refill(s): Requested Prescriptions Pending [...] Please advise. Luna Pichardo documented [facility]07-07-[facility]23 Instructions* Patient Instructions* Julio Draper MD - 01/07/2023 4:34 PM EDT Try increasing oxygen by 1 LPM if level drops during physical activity. documented [facility]07[facility]23 History of Present illness Narrative* Julio Draper MD - 01/07/2023 4:22 PM EDT This note was created using [employer]. Subjective Sneha Cardenas is a 67 year [...] 1 tablet by mouth daily at bedtime. fiahjjtplgk-hrivkpzix-vuzngrtp (TRELEGY ELLIPTA) 100-62.5-25 mcg inhalation powder Inhale 1 Puff asinstructed once daily. ipratropium-albuterol (DUONEB) 0.5 mg-3 mg(2.5 mg base)/3 mL nebu Inhale 3 mL as instructed every 4hours as needed for wheezing/shortness of breath. No [...] TABLET Julio Draper MD documented in this encounterP[facility]07-[facility]23 History of Present illness Narrative* Rosa Solano, RT(R) - 01/07/2023 3:10 PM EDT Radiology Service Progress Note PATIENT NAME: Sneha Cardenas DATE OF SERVICE: January 07, 2023 TIME: 3:04 PM PATIENT IDENTITY VERIFICATION COMPLETED USING TWO (2) IDENTIFIERS: Name and Date of confirmedby patient verbally. FALL SCREENING: Has the patient [...] DATA: Not applicable SIGNED BY: RT [place](R) January 07, 2023 3:04 PM documented in [facility]06-09-[facility]23 History of Present illness Narrative* Magali Nieves MD - 12/10/2022 2:45 PM EDT Images from the original note were not included. . [facility] [place] Note Patient name: Sneha Cardenas PCP: Julio [...] of alpha-1 antitrypsin deficiency. Patient was recently a dmitted to [facility] with pneumonia. She had fevers, pleuritic [...] Imaging / Diagnostic Studies: Reviewed CXR from [facility] which shows cardiomegaly and a left lower lobe infiltrate PAST MEDICAL HISTORY Diagnosis Date Asthma Benign essential tremor COPD (chronic obstructive pulmonary disease) ([facility]) 07/25/2012 FEV1 0.84L (32%), 10/18/2014 DDD (degenerative [...] 1 tablet by mouth daily at bedtime. icoszdastug-gpezbxxxh-tudlrrvy (TRELEGY ELLIPTA) 100-62.5-25 mcg inhalation powder Inhale 1 Puff asinstructed once daily. ipratropium-albuterol (DUONEB) 0.5 mg-3 mg(2.5 mg base)/3 mL nebu Inhale 3 mL as instructed every 4hours as needed for wheezing/shortness of breath. fluticasone [...] requirement for increase in her liter flow Magali Nieves MD [facility] [place] documented in this encounterP[facility]06-06-2023 Miscellaneous Notes* Telephone Encounter - Abimbola Lewis LPN - 12/07/2022 8:44 AM EDT Detailed message left for patient. She should keep appt on 12/10 for DC follow up. Abimbola Lewis LPN * Telephone Encounter - Luna Griems - 12/06/2022 4:48 PM EDT Pt had a recent hospital stay for pneumonia d/c 12/03/22 [facility]. She was wondering ifher appt on 12/10/22 would be necessary or would Dr. Nieves want to see her. documented in this encounterP[facility]06-05-2023 History of Present illness Narrative* Ericka Christopher LPN - 12/06/2022 11:08 AM EDT TRANSITION CARE MANAGEMENT (TCM) INITIAL CONTACT [facility] Outreach Provider Action/FYI: TCM Initial contact with patient post discharge, spoke to patient. Patient identified by name and . TRANSITION CARE MANAGEMENT INITIAL OUTREACH DOCUMENTATION: Date of Outreach: 12/06/2022 Outreach Attempt 1: Contact Made Date of Discharge 12/03/2022 Some recent data might be hidden SUMMARY: -Pt discharged from [facility] on 12/03/22. -Admitted for: LLL pneumonia [...] appt 12/10/22 with pulmonology. documented in this encounterP[facility]06-02-[address] Izaguirre [facility] December 03, 2022 9:07am Note Date/Time December 03, 2022 9:04a danika [facility] Medical Records Department [address] [place] [address] Instructions for Home/Discharge Instructions 12/03/22903 MR#: [id number] Acct: [id number] Name: SNEHA CARDENAS Rep #:[id number] : 1955 67 From: Mihai greenfield MD PCP: Dr. Julio Draper MD Status:A DM IN Discharge Instructions Diet Discharge Diet: No restrictions Activity Discharge Activity: Return to Normal Activity Dressing / Incision Call your doctor if you observe: Fever of 101 or Higher, Shortness of breath, Dizziness, Fainting spells, Swelling in the ankles, Chest pain and Increased palpitations (irregular heartbeat) Follow Up Care Test Results: Test results from this visit will be discussed in further detail at your follow- up appointment, if applicable. Discharge Plan Admission Admit Date/Time: 11/30/22 12:37 Attending Provider: Mihai Izaguirre Primary Care Provider: Julio Draper Consulting Providers: January Perez ; Yemi Celaya Discharge Orders/Prescriptions Prescriptions: New levofloxacin 750 mg tablet 750 mg PO DAILY Qty: 7 0RF prednisone 20 mg tablet 40 mg PO DAILY 7 Days Qty: 14 0RF Continued albuterol sulfate [Ventolin HFA] 1 INHALER inhaler 2 puff inhalation Q4H PRN PRN (Reason: Shortness Of Breath) Label Comments: shortness of breath montelukast 10 MG tablet 10 mg PO QHS fluticasone propionate 50 mcg/actuation spray,suspension 2 spray INTRANASAL QHS Label Comments: Use 1 [place] in each nostril once daily. Trelegy Ellipta 100-62.5-25 mcg blister with device 1 inh INHALATION DAILY Label Comments: Inhale 1 Puff as instructed once daily. Referrals / Follow Up: Julio Draper MD [Primary Care Provider] - Within 1 Week Disposition Disposition (needs filled in before D/C Order can be placed): Home, Self Care 12/03/22906<Electronically signed by Mihai Izaguirre MD>Mihai Izaguirre MD CC: Dr. January Perez DO; Dr. Yemi Celaya MD; Dr. Julio Draper MD ~ Signed [facility] Work Phone: 1(458) 356-674406-01-[address] Celaya [facility] December 02, 2022 1:53pm Note Date/Time December 02, 2022 1:53p [facility] Medical Records Department [address] [place] [address] Progress Note - Hospitalist 12/02/22 1347 MR#: [id number] Acct: [id number] Name: SNEHA CARDENAS Rep #:[id number] : 1955 67 From: Yemi Mckeon PCP: Dr. Julio Draper MD Status:A DM IN Location: [place] [id number] Reason for Visit Reason for Visit: Diagnoses Elevated white blood cell count, unspecified (11/30/22) Pneumonia, unspecified organism (11/30/22) Fever, unspecified (11/30/22) Hyperglycemia, unspecified (11/30/22) Other specified abnormal findings of blood chemistry (11/30/22) Subjective Subjective Follow-up for pneumonia Objective Data Objective Data Vital Signs: Vital Signs Temp Pulse Resp BP Pulse Ox O2 Del Method O2 Flow Rate 98.3 F 91 18 134/67 H 95 Nasal Cannula 2 12/02/22 09:43 12/02/22 09:43 12/02/22 09:43 12/02/22 09:43 12/02/22 09:43 12/02/22 09:43 12/02/22 09:43 Oxygen Flow Rate (L/min) 2 Oxygen Delivery Method Nasal Cannula Weight: 156 lb 8.451 oz Body Mass Index (BMI) 26.9 Intake & Output: Intake and Output for Last 24 Hours 11/30/22 12/01/22 12/02/22 23:59 23:59 23:59 Intake Total 1150 / 1150 5. / 2034.00 450 / 450 Output Total 400 / 400 Balance 750 / 750 2034. / 2034. 450 / 450 Lab / Micro Data Result Diagrams: 12/02/22 05:17 12/02/22 05:17 Labs: Laboratory Results - last 24 hr 11/30/22 11:25: Diff Path Review Reviewed 12/02/22 05:17: WBC 17.0 H, RBC 3.41 L, Hgb 9.9 L, Hct 31.5 L, MCV 92.4, MCH 29.0, MCHC 31.4 L, RDW Std Deviation 44.5 H, RDW Coeff of Laly 13.2, Plt Count 251, MPV 9.9, Immature Gran % (Auto) 0.700, Neut % (Auto) 81.1 H, Lymph % (Auto)12.2 L, Robertson % (Auto) 5.3, Eos % (Auto) 0.5, Baso % (Auto) 0.2, Absolute Neuts (auto) 13.8 H, Absolute Lymphs (auto) 2.08, Nucleated RBC % 0 12/02/22 05:17: Sodium 141, Potassium 3.6, Chloride 107, Carbon Dioxide 29.0, Anion Gap 5, BUN 23 H, Creatinine 0.78, Estim Creat Clear Calc 47.79, Est GFR (MDRD) Af Amer 95, Est GFR (MDRD) Non-Af 79, BUN/Creatinine Ratio 29.5 H, Glucose 88, Calcium 8.5 Micro: Microbiology 11/30/22 11:55 Blood Culture (Wb) - Anticubital Left Blood Culture - Preliminary No growth in 48 hours. 11/30/22 11:25 Blood Culture (Wb) - Anticubital Left Blood Culture - Preliminary No growth in 48 hours. 12/01/22 10:05 Nasal Secretion SARS-CoV-2 Antigen (Rapid) - Final 11/30/22 15:15 Mucosa - Nasopharyngeal Respiratory Panel (PCR) - Final 11/30/22 14:00 Urine, Clean Catch Legionella Antigen - Final 11/30/22 14:00 Urine, Clean Catch Streptococcus pneumoniae Antigen (M - Final Rhythm Strip Rhythm Strip: Sinus Tach Rate: 110 Ectopy: None Physical Exam Narrative Seen and examined. Shortness of breath at rest is better but he still gets easily tachypneic and dyspneic on walking to bathroom. History of COPD, started smoking in teenage quit about 9 years ago Physical exam General: Alert, Oriented x3, Cooperative HEENT: Atraumatic, PERRLA, EOMI, Normocephalic Oral: Oral mucosa moist. No Gingival or Mucosal Lesions/ Ulcerations Neck: Supple, No JVD, Negative Carotid Bruits Lungs: Air entry severely diminished in both lungs. Fine expiratory rhonchi. Tachypneic. On 2 L of oxygen Cardiovascular: Regular rate, Regular Rhythm, Normal S1, Normal S2, No murmurs Abdomen: Bowel Sounds Present, Soft, Non Tender, Non-Distended : No renal angle tenderness. No suprapubic tenderness. Extremities: Action/kinetic tremors in both hands. No edema, Capillary Refill Less than 3 Seconds Skin: No rashes, No breakdown Musculoskeletal: No Tenderness to Palpation of Joints or Extremities Neurological: Cranial nerves II-XII grossly intact, DTR 2+/4 and Symmetrical, Neuro grossly intact Psych/Mental Status: Flat affect. Assessment & Plan Assessment/Plan (1) Community acquired pneumonia: (2) Leukocytosis: (3) Elevated serum creatinine: (4) Hyperglycemia: (5) Fever and chills: PLAN: Plan 1. COPD exacerbation due to left lower lobe community acquired pneumonia with chronic hypoxic respiratory failure: Patient is admitted on [facility] floor. Patient on 2 L of home oxygen 24/01. Does not use BiPAP or CPAP. -Continue with Levaquin. Urinary antigens and respiratory panel negative. Rapid SARS-CoV-2 antigen negative. Bronchodilator, chest physiotherapy and incentive spirometry. Patient has leukocytosis mainly neutrophil count, improving. 12/02: Patient started on Solu-Medrol as she still has dyspnea on mild exertion, even going to bathroom. Overall dyspnea at rest and tachypnea are improving. Blood cultures x2 negative for more than 48 hours. Leukocytosis improving. Nausea and vomiting: Patient is well rehydrated. Discontinue Ringer lactate Hyperglycemia -Mild -Likely stress response -We will monitor need for further work-up Chronic hypoxic respiratory failure -Patient is on 2 L supplemental nasal cannula -Has been oxygen dependent since she had COVID in April 2021 -Follows with Dr. Nieves at [facility] pulmonary medicine in [place] -Continue home inhalers Seasonal allergies -Continue Singulair -Continue nasal fluticasone History of tobacco abuse -Remote -Encourage continued cessation She also has nonessential tremor but denies history of Parkinson or essential tremor. DVT prophylaxis -Lovenox subcu daily CODE STATUS -Full care code as verified on admission Charges/Coding Visit Charges Inpatient E&M: 67699 Subs Hosp L2 12/02/22 7249 <Electronically signed by Yemi Celaya MD> Cosigner Signature (if applicable): CC: ~ Signed [facility] Work Phone: 1(668) 138-120005-31-[address] Celaya [facility] December 01, 2022 1:20pm Note Date/Time December 01, 2022 7:45a [facility] Medical Records Department [address] [place] [address] Progress Note - Hospitalist 12/01/22 0744 MR#: [id number] Acct: [id number] Name: SNEHA CARDENAS Rep #:[id number] : 1955 67 From: Yemi Mckeon PCP: Dr. Julio Draper MD Status:A DM IN Location: [place] [id number] Reason for Visit Reason for Visit: Diagnoses Elevated white blood cell count, unspecified (11/30/22) Pneumonia, unspecified organism (11/30/22) Fever, unspecified (11/30/22) Hyperglycemia, unspecified (11/30/22) Other specified abnormal findings of blood chemistry (11/30/22) Subjective Subjective Follow-up for pneumonia with shortness of breath. Objective Data Objective Data Vital Signs: Vital Signs Temp Pulse Resp BP Pulse Ox O2 Del Method O2 Flow Rate 97.8 F 89 20 H 120/62 96 Nasal Cannula 2 12/01/22 03:06 12/01/22 07:21 12/01/22 07:21 12/01/22 03:06 12/01/22 07:21 12/01/22 07:21 12/01/22 07:21 Oxygen Flow Rate (L/min) 2 Oxygen Delivery Method Nasal Cannula Weight: 156 lb 8.451 oz Body Mass Index (BMI) 26.9 Intake & Output: Intake and Output for Last 24 Hours 11/29/22 11/30/22 12/01/22 23:59 23:59 23:59 Intake Total 1150 / 1150 928.75 / 928.75 Output Total 400 / 400 Balance 750 / 750 928.75 / 928.75 Lab / Micro Data Result Diagrams: 12/01/22 06:03 12/01/22 06:03 Labs: Laboratory Results - last 24 hr 11/30/22 11:25: WBC 29.2 H, RBC 4.09 L, Hgb 12.2, Hct 37.0, MCV 90.5, MCH 29.8, MCHC 33.0 D, RDW Std Deviation 43.8, RDW Coeff of Laly 13.2, Plt Count 252, MPV 9.9, Immature Gran % (Auto) 2.600 H, Neut % (Auto) 88.0 H, Lymph % (Auto) 2.1 L,Robertson % (Auto) 6.8, Eos % (Auto) 0.2, Baso % (Auto) 0.3, Absolute Neuts (auto) 25.7 H, Absolute Lymphs (auto) 0.62 L, Nucleated RBC % 0, Differential Comment SCANNED, Diff Path Review November11/30/22 11:25: Sodium 134 L, Potassium 3.8, Chloride 98, Carbon Dioxide 29.0, Anion Gap 7, BUN 15, Creatinine 1.07 H, Estim Creat Clear Calc 44.66, Est GFR (MDRD) Af Amer 66, Est GFR (MDRD) Non-Af 54 L, BUN/Creatinine Ratio 14.0, Glucose 146 H, Calcium 9.0, Total Bilirubin 1.10 H, AST 10 L, ALT 19, Alkaline Phosphatase 103, Total Protein 7.4, Albumin 2.9 L, Globulin 4.5 H, Albumin/Globulin Ratio 0.6 L 11/30/22 11:25: Lactic Acid 1.8 11/30/22 14:50: MRSA (PCR) Negative 12/01/22 06:03: WBC 22.4 H, RBC 3.64 L, Hgb 10.9 L, Hct 33.4 L, MCV 91.8, MCH 29.9, MCHC 32.6, RDW Std Deviation 44.0 H, RDW Coeff of Laly 13.1, Plt Count 244,MPV 10.0, Immature Gran % (Auto) 1.400 H, Neut % (Auto) 92.5 H, Lymph % (Auto) 3.1 L, Robertson % (Auto) 2.9, Eos % (Auto) 0.0, Baso % (Auto) 0.1, Absolute Neuts (auto) 20.7 H, Absolute Lymphs (auto) 0.69 L, Nucleated RBC % 0 12/01/22 06:03: Sodium 141, Potassium 3.7, Chloride 106, Carbon Dioxide 29.0, Anion Gap 6, BUN 16, Creatinine 0.85, Estim Creat Clear Calc 56.22, Est GFR (MDRD) Af Amer 86, Est GFR (MDRD) Non-Af 71, BUN/Creatinine Ratio 18.8, Glucose 148 H, Calcium 9.3, Phosphorus 2.6, Magnesium 2.5, Total Bilirubin 0.40, AST 7 L, ALT 14, Alkaline Phosphatase 86, Total Protein 6.6, Albumin 2.5 L, Globulin 4.1, Albumin/Globulin Ratio 0.6 L Micro: Microbiology 11/30/22 15:15 Mucosa - Nasopharyngeal Respiratory Panel (PCR) - Final 11/30/22 14:00 Urine, Clean Catch Legionella Antigen - Final 11/30/22 14:00 Urine, Clean Catch Streptococcus pneumoniae Antigen (M - Final ABG Data ABG results: ABG 11/30/22 12:12 Specimen Type ART Sample Site L Radial pH 7.48 H Bicarbonate Actual 27.5 H Total CO2 29 Base Excess 4 H O2 Saturation 93 L ABG pCO2 37.0 ABG pO2 62 L Seven Test Positive O2 Delivery Device Cannula Liter Flow 2.0 Radiography Diagnostic Testing: Radiology Impression Chest X-Ray 11/30/22 11:10 IMPRESSION: Left lower lobe pneumonia. Electronically Signed: Yair Mcclendon MD at 12:31 EDT , Rhythm Strip Rhythm Strip: Sinus Tach Rate: 110 Ectopy: None Physical Exam Narrative Seen and examined. Patient very short of breath, tachypneic. She also has nonessential tremor butdenies history of Parkinson or essential tremor. History of COPD, started smoking in teenage quit about 9 years ago Physical exam General: Alert, Oriented x3, Cooperative HEENT: Atraumatic, PERRLA, EOMI, Normocephalic Oral: Oral mucosa moist. No Gingival or Mucosal Lesions/ Ulcerations Neck: Supple, No JVD, Negative Carotid Bruits Lungs: Air entry severely diminished in both lungs. Fine expiratory rhonchi. Tachypneic. Cardiovascular: Regular rate, Regular Rhythm, Normal S1, Normal S2, No murmurs Abdomen: Bowel Sounds Present, Soft, Non Tender, Non-Distended : No renal angle tenderness. No suprapubic tenderness. Extremities: Action/kinetic tremors in both hands. No edema, Capillary Refill Less than 3 Seconds Skin: No rashes, No breakdown Musculoskeletal: No Tenderness to Palpation of Joints or Extremities Neurological: Cranial nerves II-XII grossly intact, DTR 2+/4 and Symmetrical, Neuro grossly intact Psych/Mental Status: Normal Affect, Appropriate. Assessment & Plan Assessment/Plan (1) Community acquired pneumonia: (2) Leukocytosis: (3) Elevated serum creatinine: (4) Hyperglycemia: (5) Fever and chills: PLAN: Plan 1. Left lower lobe community acquired pneumonia with chronic hypoxic respiratory failure: [facility] Patient on 2 L of home oxygen 24/01. Does not use BiPAP or CPAP. -Continue with Levaquin. Urinary antigens and respiratory panel negative. Rapid SARS-CoV-2 antigen negative. Bronchodilator, chest physiotherapy and incentive spirometry. Patient has leukocytosis mainly neutrophil count, improving. Nausea and vomiting: Patient is well rehydrated. Discontinue Ringer lactate Hyperglycemia -Mild -Likely stress response -We will monitor need for further work-up Chronic hypoxic respiratory failure/COPD -Patient is on 2 L supplemental nasal cannula -Has been oxygen dependent since she had COVID in April 2021 -Also has a history of COPD -Follows with Dr. Nieves at [facility] pulmonary medicine in [place] -Continue home inhalers Seasonal allergies -Continue Singulair -Continue nasal fluticasone History of tobacco abuse -Remote -Encourage continued cessation DVT prophylaxis -Lovenox subcu daily CODE STATUS -Full care code as verified on admission Charges/Coding Visit Charges Inpatient E&M: 21040 Subs Hosp L2 12/01/22 1320 <Electronically signed by Yemi Celaya MD> Cosigner Signature (if applicable): CC: ~ Signed [facility] Work Phone: 1(452) 180-213905-30-2023 History and physical note Author Dr. Perez [facility] November 30, 2022 3:42pm Note Date/Time November 30, 2022 12:36 pm [facility] Medical Records Department [address] [place] [address] H&P Exam - Hospitalist 11/30/22 1233 MR#: [id number] Acct: [id number] Name: SNEHA CARDENAS Rep #:[id number] : 1955 67 From: January Perez DO PCP: Dr. Julio Draper MD Status:A DM IN Location: MS3 [id number] HPI - General General Date of Admission: 11/30/22 Date of Service: 11/30/22 Chief Complaint: Fever/Cough HPI Narrative SNEHA CARDENAS, is a 67 F who presented to the emergency department at [facility] on 11/30/2022 with fever, cough, and shortness of breath. Patient states her symptoms started this past Tuesday. She started having a nonproductive cough and some left-sided pleuritic chest pain. She came emergency department on 11/28/2022 and her work-up at that time did not reveal any cardiac causes of chest pain and she was discharged home. She was told to watch for development of a fever. She states she did start having a fever laterthat day but was hoping it would go away and did not return the emergency department at that time and actually waited yesterday as well as she was hoping to getbetter. She has had persistent chest pain with coughing. Pain continues to be pleuritic. Cough is nonproductive. She is at increased shortness of breath butoxygen saturations have been okay on her baseline 2 L of nasal cannula. She developed a fever at home which at Tmax was 102 degrees. She also is complaining of some nausea and vomiting that started today and her oral intake has been poor. Since she continued to feel poorly she represented to the emergency department on 11/30/2022. Vital signs on presentation demonstrated temperature of 100.4, heart rate 114, blood pressure 128/58, respiratory rate 18 and oxygen saturations were 95% on 2 L nasal cannula. CBC demonstrated white count of 29.2 thousand with a significant left shift having an 88% neutrophilia. ABG showed a pH of 7.48 withan elevated serum bicarbonate 27.5/PCO2 of 37.0 and a PO2 of 62 on 2 L nasal cannula. Sat was 93%. Chemistry panel shows mild hyponatremia with a sodium of134, her serum creatinine is 1.07 which is a little higher than her baseline. Serum glucose is 146. Lactic acid was normal 1.8. Liver functions are normal. Chest x-ray shows a left lower lobe infiltrate which is new compared to previousimaging done 2 days ago. Levaquin was started the emergency department request for admission was made. [facility] Medical History Anxiety Asthma Benign essential hypertension Benign essential tremor COPD (chronic obstructive pulmonary disease) Former tobacco use Migraines On home oxygen therapy Pneumonia due to COVID-19 virus Home Medications albuterol sulfate 90 mcg/actuation aerosol inhaler (Ventolin HFA) 2 puff inhalation Q4H PRN PRN Shortness Of Breath 08/28/15 [History Last Taken 11/30/22 10:00] montelukast 10 mg tablet 10 mg PO QHS ALLERGIES 02/25/18 [History Last Taken 11/29/22] fluticasone fur. 100 mcg-umeclid 62.5 mcg-vilant 25 mcg inhalat.powder (Trelegy Ellipta) 1 inh inhalation DAILY COPD 05/01/21 [History Last Taken 11/30/22] fluticasone propionate 50 mcg/actuation nasal spray,suspension 2 spray intranasal QHS ALLERGIES 05/01/21 [History Last Taken 11/28/22] Allergy/AdvReac Type Severity Reaction Status Date / Time cephalexin monohydrate Allergy Chest Verified 11/30/22 10:40 [From Keflex] tightness Family History no significant family his no significant family history Surgical History H/O bilateral salpingectomy History of herniorrhaphy Hx of cholecystectomy Hx of tonsillectomy Social History adopted: Yes household members: family housing: house Smoking Status: Former smoker alcohol intake: never substance use type: does not use ROS Constitutional Constitutional: Reports anorexia, chills, fatigue, fever(s), malaise and weakness Eyes Eyes: Denies blurry vision, change in eye color, change in vision, discharge from eye(s), double vision, erythema, eye pain, loss of vision or other ENT HEENT: Denies abnormal hearing, dysphagia, ear pain, epistaxis, headache(s), hearing loss, nasal congestion, nasal discharge, post nasal drip, sinus pressure, sore throat or other Cardiovascular Cardiovascular: Reports chest pain and other Details: Chest pain is pleuritic innature ; Denies claudication, dyspnea on exertion, edema, lightheadedness, orthopnea, palpitations, paroxysmal nocturnal dyspnea, rapid heart rate or syncope Respiratory/Chest Respiratory/Chest: Reports cough and dyspnea Gastrointestinal Gastrointestinal: Reports nausea and vomiting; Denies abdominal pain, coffee ground emesis, constipation, diarrhea, dyspepsia, hematemesis, hematochezia, loose stools, melena or other Genitourinary Genitourinary: Denies burning urination, difficulty urinating, dysuria, hematuria, nocturia, urinary frequency, urinary hesitancy, urinary incontinence, urinaryurgency or other Musculoskeletal Musculoskeletal: Denies arthralgias, back pain, joint pain, joint stiffness, joint swelling, myalgias, neck pain or other Neurologic Neurologic: Denies abnormal gait, abnormal speech, confusion, disequilibrium, dizziness, focal weakness, headache(s), numbness, paresthesias, seizure-like activity, seizures, syncope, tingling, tremor(s) or other Psychiatric Psychiatric: Denies anxiety, depression, homicidal ideation, suicidal ideation or other Endocrine Endocrinology: Denies change in body appearance, cold intolerance, excessive sweating, heat intolerance, polydipsia, polyuria or other Hematologic/Lymphatic Hematologic/Lymphatic: Denies anemia, easy bleeding, easy bruising, lymphadenopathy or other Allergic/Immunologic Allergic/Immunologic: Denies rhinitis, hives, eczemia, asthma or other Vital Signs Vital Signs Vital Signs: 11/30/22 10:36 11/30/22 11:43 11/30/22 11:49 Temperature 96.5 F L 100.4 F H Temperature Source Temporal Oral Pulse Rate 114 H Respiratory Rate 18 Respiratory Pattern Normal Blood Pressure 128/58 H Blood Pressure Mean 81 Pulse Ox 95 Oxygen Delivery Method Nasal Cannula Oxygen Flow Rate (L/min) 2 11/30/22 12:04 11/30/22 12:04 Temperature 100.4 F H Temperature Source Oral Pulse Rate 99 99 Respiratory Rate 16 16 Respiratory Pattern Blood Pressure 124/61 H 124/61 H Blood Pressure Mean 82 82 Pulse Ox 96 96 Oxygen Delivery Method Nasal Cannula Nasal Cannula Oxygen Flow Rate (L/min) 2 Weight Weight: 70.9 kg Body Mass Index (BMI) 26.8 Physical Exam Const alert, oriented x3 and average body habitus; Negative for healthy appearing Constitutional Narrative: Upper middle-aged white female, sitting up in bed, appears older than stated age, appears comfortable but ill, nontoxic-appearing, appears stable on 2 L of supplemental oxygen at this time, no acute distress General Appearance: cooperative HEENT normocephalic, head/scalp atraumatic and hearing grossly normal bilaterally; Negative for moist oral mucous membranes HEENT Narrative: Dentition is poor, Mallampati is 2-3, no thrush, mucous membranes are dry Eyes PERRL, EOMs intact bilaterally and conjunctivae normal Eyes Narrative: No scleral icterus Neck no lymphadenopathy, supple, no JVD and no carotid bruits Neck Narrative: Trachea midline, no thyroid enlargement Resp normal respiratory effort, no retractions, no use of accessory muscles and No clear to auscultation bilaterally Resp Narrative: Diminished left midlung field and left upper lobe -Few inspiratory crackles Auscultation: crackles; Negative for rhonchi or wheezes Cardio regular rate, regular rhythm, S1 normal heart sound, S2 normal heart sound, no murmurs, no rub, no gallops and no clicks GI normal to inspection, nondistended, normoactive bowel sounds, soft to palpation and non-tender Extremity no clubbing, cyanosis or edema Extremity Narrative: 2+ pedal pulses Skin no rashes or lesions noted, no wounds, skin turgor normal, no jaundice, no petechiae and no mottling Neuro oriented x3, CN's II-XII intact bilaterally, moves all extremities and no focal motor deficits Neuro Narrative: Significant generalized weakness noted-likely related to a acute illness and notfeeling well Speech: speech normal Motor Exam: Negative for strength 5/5 throughout Psych Psych Narrative: Affect is flat, eye contact is good, patient is pleasant and appropriate Results Lab / Micro Data Attestation: I reviewed the patient's lab results. Result Diagrams: 11/30/22 11:25 11/30/22 11:25 Labs: Laboratory Results - last 24 hr 11/30/22 11:25: WBC 29.2 H, RBC 4.09 L, Hgb 12.2, Hct 37.0, MCV 90.5, MCH 29.8, MCHC 33.0 D, RDW Std Deviation 43.8, RDW Coeff of Laly 13.2, Plt Count 252, MPV 9.9, Immature Gran % (Auto) 2.600 H, Neut % (Auto) 88.0 H, Lymph % (Auto) 2.1 L,Robertson % (Auto) 6.8, Eos % (Auto) 0.2, Baso % (Auto) 0.3, Absolute Neuts (auto) 25.7 H, Absolute Lymphs (auto) 0.62 L, Nucleated RBC % 0, Differential Comment SCANNED, Diff Path Review November11/30/22 11:25: Sodium 134 L, Potassium 3.8, Chloride 98, Carbon Dioxide 29.0, Anion Gap 7, BUN 15, Creatinine 1.07 H, Estim Creat Clear Calc 44.66, Est GFR (MDRD) Af Amer 66, Est GFR (MDRD) Non-Af 54 L, BUN/Creatinine Ratio 14.0, Glucose 146 H, Calcium 9.0, Total Bilirubin 1.10 H, AST 10 L, ALT 19, Alkaline Phosphatase 103, Total Protein 7.4, Albumin 2.9 L, Globulin 4.5 H, Albumin/Globulin Ratio 0.6 L 11/30/22 11:25: Lactic Acid 1.8 ABG Data ABG results: ABG 11/30/22 12:12 Specimen Type ART Sample Site L Radial pH 7.48 H Bicarbonate Actual 27.5 H Total CO2 29 Base Excess 4 H O2 Saturation 93 L ABG pCO2 37.0 ABG pO2 62 L Seven Test Positive O2 Delivery Device Cannula Liter Flow 2.0 Rhythm Strip Rhythm Strip: Sinus Tach Rate: 110 Ectopy: None Radiology Impression Chest X-Ray 11/30/22 11:10 IMPRESSION: Left lower lobe pneumonia. Electronically Signed: Yair Mcclendon MD at 12:31 EDT , Assessment & Plan Assessment/Plan (1) Community acquired pneumonia: (2) Leukocytosis: (3) Elevated serum creatinine: (4) Hyperglycemia: (5) Fever and chills: PLAN: Plan Community acquired pneumonia -Continue with Levaquin -Sputum culture -Check strep pneumo and Legionella antigens -Aggressive pulmonary toilet -I-S -Pep therapy -Supplemental oxygen as needed--> patient is currently on her baseline of 2 L Nausea and vomiting -P.o. intake has been poor last 24 hours Patient looks dry -1 bolus of IV fluids in the emergency department next-we will continue IV fluids at 75 cc/h until oral intake is better Leukocytosis -Markedly elevated -Left shift present -Blood cultures are pending -Sputum culture pending Hyperglycemia -Mild -Likely stress response -We will monitor need for further work-up Chronic hypoxic respiratory failure/COPD -Patient is on 2 L supplemental nasal cannula -Has been oxygen dependent since she had COVID in April 2021 -Also has a history of COPD -Follows with Dr. Nieves at [facility] pulmonary medicine in [place] -Continue home inhalers Seasonal allergies -Continue Singulair -Continue nasal fluticasone History of tobacco abuse -Remote -Encourage continued cessation DVT prophylaxis -Lovenox subcu daily CODE STATUS -Full care code as verified on admission Charges/Coding Visit Charges Inpatient E&M: 37636 Init Hosp L3 11/30/22 1542 <Electronically signed by January Perez DO> Cosigner Signature (if applicable): CC: Dr. January Perez DO; Dr. Julio Draper MD~ Signed [facility] Work Phone: [phone]) 216-700505-30-[address] Thomas [facility] November 30, 2022 12:35pm Note Date/Time November 30, 2022 11:04 am [facility] Medical Records Department [address] [place] [address] Emergency Department Summary 11/30/22 MR#: [id number] Acct: [id number] Name: SNEHA CARDENAS Rep #:[id number] : 1955 67 From: Zach Thomas MD PCP: Dr. Julio Draper MD Status:R EG ER Location: ED HPI History of Present Illness Chief Complaint: Fever Detail of Chief Complaint: Fever, cough, dyspnea, nausea and vomiting negative COVID test November Onset/Context/Timing Onset: Days Context: Gradual Onset Timing: Continuous Quality: Dyspnea, dyspnea on exertion, pain with cough Location: Anterior left chest Current Severity: Mild Maximum Severity: Moderate Worsened by: Coughing Relieved by: Not coughing Associated Symptoms Associated Symptoms: Detailed HPI narrative Narrative Narrative: Patient is a 67-year-old woman with history of COPD/asthma requiring oxygen she was diagnosed with COVID in 2020. She has not smoked in 9 years. Her last admission was 2020. She was admitted for hypoxia at that time. Patient was seen this past weekend for left-sided chest pain that radiated to the left arm. Her work-up was negative. She states she had a COVID test that was negative on Tuesday. Her 's COVID test was negative as well. She has been having increased trouble breathing since the middle of last week. She now reports documented temperatureto 101.1, productive cough with left-sided pain when she coughs. She states thesymptoms are new since she was seen Tuesday morning. She denies history of PE or DVT. She denies leg pain, swelling discoloration. She complains of mild global headache. She denies photophobia, neck pain or neck stiffness. Patient has not required increased oxygen at rest. She states she cannot walk as far before she has to stop. She has not checked her pulse ox at home. Patient denies abdominal pain. Denies nausea and vomiting with no diarrhea. She is status postcholecystectomy. She denies prior history of bowel obstruction. She does endorse decreased urine output and orthostatics times. Prior similar symptoms: Yes Recent Illness/Hospitalization: Yes (Cardiac chest pain work-up on Tuesday.) [facility] Medical History Anxiety Asthma Benign essential hypertension Benign essential tremor COPD (chronic obstructive pulmonary disease) Former tobacco use Pneumonia due to COVID-19 virus Home Medications albuterol sulfate 90 mcg/actuation aerosol inhaler (Ventolin HFA) 2 puff inhalation Q4H PRN PRN Shortness Of Breath 08/28/15 [History Last Taken 11/30/22 10:00] montelukast 10 mg tablet 10 mg PO QHS ALLERGIES 02/25/18 [History Last Taken 11/29/22] fluticasone fur. 100 mcg-umeclid 62.5 mcg-vilant 25 mcg inhalat.powder (Trelegy Ellipta) 1 inh inhalation DAILY COPD 05/01/21 [History Last Taken 11/30/22] fluticasone propionate 50 mcg/actuation nasal spray,suspension 2 spray intranasal QHS ALLERGIES 05/01/21 [History Last Taken 11/28/22] Allergy/AdvReac Type Severity Reaction Status Date / Time cephalexin monohydrate Allergy Chest Verified 11/30/22 10:40 [From Keflex] tightness Surgical History H/O bilateral salpingectomy History of herniorrhaphy Hx of cholecystectomy Hx of tonsillectomy Social History adopted: Yes household members: family housing: house Smoking Status: Former smoker alcohol intake: never substance use type: does not use ROS ROS ED Constitutional Constitutional ED: Reports chills, fever(s) and sweats Eyes Eyes: Denies blurry vision, change in vision or diplopia ENT ENT ED: Denies ear pain, rhinorrhea or sore throat Cardiovascular Cardiovascular: Reports chest pain; Denies orthopnea, palpitations, paroxysmal nocturnal dyspnea or racing heartbeat Respiratory/Chest Respiratory/Chest: Reports cough, dyspnea and dyspnea on exertion; Denies orthopnea or paroxysmal nocturnal dyspnea Gastrointestinal Gastrointestinal: Reports nausea and vomiting; Denies abdominal pain, constipation, diarrhea or melena Genitourinary Genitourinary ED: Reports other Details: Decreased urine output ; Denies dysuria, hematuria or urinary frequency Musculoskeletal Musculoskeletal: Reports arthralgias and myalgias; Denies back pain or neck pain Integumentary Denies abscess or rash Neurologic Neurologic: Reports headache(s) and weakness; Denies paresthesias Psychiatric Psychiatric: Reports anxiety Endocrine Endocrinology: Denies cold intolerance, heat intolerance, polydipsia or polyuria Hematologic/Lymphatic Hematologic/Lymphatic: Reports systems reviewed and no addt'l complaints, exceptas documented EXAM Physical Exam Const Vital Signs: 11/30/22 10:36 11/30/22 11:43 11/30/22 11:49 Temperature 96.5 F L 100.4 F H Temperature Source Temporal Oral Pulse Rate 114 H Respiratory Rate 18 Respiratory Pattern Normal Blood Pressure 128/58 H Blood Pressure Mean 81 Pulse Ox 95 Oxygen Delivery Method Nasal Cannula Oxygen Flow Rate (L/min) 2 11/30/22 12:04 11/30/22 12:04 Temperature 100.4 F H Temperature Source Oral Pulse Rate 99 99 Respiratory Rate 16 16 Respiratory Pattern Blood Pressure 124/61 H 124/61 H Blood Pressure Mean 82 82 Pulse Ox 96 96 Oxygen Delivery Method Nasal Cannula Nasal Cannula Oxygen Flow Rate (L/min) 2 Positive well nourished and well developed Constitutional Narrative: Patient does not look well. She does not appear toxic either. She is noted to be tachypneic and monitor reveals that she is in a sinus tachycardia with a rateof 119. Patient's lips and tongue are dry. She is having difficulty speaking because of her dry mucosa. General Appearance ED: well developed and NAD; Negative for cyanotic, diaphoretic or pallor HEENT Reports dry mucous membranes HEENT Narrative: Head is atraumatic and normocephalic. Ears are normal. Nares are patent. Uvula is midline. Posterior pharynx is normal. Mouth ED: Yes dry mucous membranes Mouth: dry mucous membranes Eyes PERRL and EOMs intact bilaterally General Eye ED: Negative for pale conjunctiva or scleral icterus Neck no lymphadenopathy, supple and no JVD Neck Narrative: There is no is your expiratory stridor. Chest Wall inspection of chest normal and palpation of chest normal Resp No normal respiratory effort and No clear to auscultation bilaterally Resp Narrative: Rales are noted bilaterally. Expiratory phase is prolonged with high pitched minimal wheezes noted. There is egophony right lower lobe and question egophonyon the left. Effort and Inspection: Negative for retractions Auscultation: rales bilateral lower (Left greater than right with egophony on the right and question egophony on the left) and wheezes expiratory wheezes, scattered wheezes and throughout Cardio regular rhythm, S1 normal heart sound, S2 normal heart sound and no murmurs Rate: tachycardic GI normal to inspection, nondistended, normoactive bowel sounds, non-tender, non-distended and no masses; Negative for hepatosplenomegaly GI Narrative: There is no ventral hernia or inguinal hernia noted. Palpation: soft Back/Spine no CVA tenderness Extremity normal to inspection Extremity Narrative: There is no asymmetry, swelling, discoloration, leg vein distention, palpable cords or tenderness along the distribution of the deep venous system. General Extremety ED: Negative for edema or tenderness General Extremity: Negative for edema Neuro oriented x3, CN's II-XII intact bilaterally and no sensory deficits noted Neuro Narrative: Patient is awake but not alert. Sensorium / Orientation: Negative for alert Psych Mood & Affect: depressed Skin no rashes or lesions noted, no wounds and No skin turgor normal General Skin Exam: Negative for elasticity normal, jaundice or pallor MDM MDM MDM Narrative Medical decision making narrative: Patient presents with infectious symptoms. This is either an exacerbation of COPD with bronchitis versus pneumonia. Suspect the chest pain is due to her pulmonary process. ABG was obtained to assess CO2 and acid-base status. CBC toassess white count differential as well as rule out anemia. Basic metabolic panel to assess renal function, electrolytes and anion gap. Lactate because of concern for sepsis. Blood cultures were ordered. We will treat with DuoNeb andalbuterol. Also will receive 125 mg Solu-Medrol. Since she had a negative COVID test on Tuesday this was not repeated. 1 L normal saline was ordered some clinically patient is dehydrated and she reports vomiting numerous times. Zofran was also ordered to treat her nausea and vomiting. History & Record Review Additional record(s) reviewed:: Prior inpatient record (Admission 2020 for hypoxia/COVID), Prior outpatient record, Prior ED visit and Prior labs Lab Data Attestation: I reviewed the patient's lab results. Lab results narrative: White count is 29.2 thousand with shift. There is no bandemia. This is markedly elevated compared to prior comprehensive metabolic panel reveals a sodium of 134. CO2 anion gap are normal. Creatinine is slight elevated 1.07 with a GFR 54. Glucose is elevated 146. Lactate is pending. In light of the elevated white count patient was treated levofloxacin. She was did not receive Rocephin since she reports chest tightness with cephalexin. Labs: Laboratory Results - last 24 hr 11/30/22 11/30/22 11/30/22 11:25 11:25 11:25 WBC 29.2 H RBC 4.09 L Hgb 12.2 Hct 37.0 MCV 90.5 MCH 29.8 MCHC 33.0 D RDW Std Deviation 43.8 RDW Coeff of Laly 13.2 Plt Count 252 MPV 9.9 Immature Gran % (Auto) 2.600 H Neut % (Auto) 88.0 H Lymph % (Auto) 2.1 L Robertson % (Auto) 6.8 Eos % (Auto) 0.2 Baso % (Auto) 0.3 Absolute Neuts (auto) 25.7 H Absolute Lymphs (auto) 0.62 L Nucleated RBC % 0 Differential Comment SCANNED Diff Path Review May foll Sodium 134 L Potassium 3.8 Chloride 98 Carbon Dioxide 29.0 Anion Gap 7 BUN 15 Creatinine 1.07 H Estim Creat Clear Calc 44.66 Est GFR (MDRD) Af Amer 66 Est GFR (MDRD) Non-Af 54 L BUN/Creatinine Ratio 14.0 Glucose 146 H Lactic Acid 1.8 Calcium 9.0 Total Bilirubin 1.10 H AST 10 L ALT 19 Alkaline Phosphatase 103 Total Protein 7.4 Albumin 2.9 L Globulin 4.5 H Albumin/Globulin Ratio 0.6 L ABG Data Attestation: I personally reviewed and interpreted this ABG as follows: Interpretation: Venous blood gas reveals mild alkalosis. This is consistent with her tachypnea which was not documented by the nurse. Repeat temperature is 100.4. ABG results: ABG 11/30/22 12:12 Specimen Type ART Sample Site L Radial pH 7.48 H Bicarbonate Actual 27.5 H Total CO2 29 Base Excess 4 H O2 Saturation 93 L ABG pCO2 37.0 ABG pO2 62 L Seven Test Positive O2 Delivery Device Cannula Liter Flow 2.0 Radiography Chest X-Ray - ED: 1 View and Read by ED Physician (Left lower lobe infiltrate this was independent reviewed interpreted by me at 1215. Cardiac size is unremarkable. Perihilar regions unremarkable. Osseous trucks unremarkable.) Diagnostic Testing: Clinical Impression(s) from Imaging Studies Chest X-Ray 11/30/22 11:10 IMPRESSION: Left lower lobe pneumonia. Electronically Signed: Yair Mcclendon MD at 12:31 EDT , Rhythm Strip Rhythm Strip: Sinus Tach Rate: 110 Ectopy: None EKG Initial EKG: Attestation: I personally reviewed and interpreted this EKG as follows: Interpretation: Sinus Rhythm (Rate is 100. UT interval is 178 ms. Cures duration 82 ms. QT duration 230 ms. Hext is normal. 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 Perez was made aware ofhistory, physical and treatment. Full admit MedSurg) Discharge Plan Triage Chief Complaint: Fever ED Provider: Zach Thomas Dx/Rx/DC Orders Clinical Impression: Community acquired pneumonia, Leukocytosis, COPD exacerbation, Acute bronchospasm, Dyspnea on exertion, Fever and chills, Sinus tachycardia Prescriptions: No Action albuterol sulfate [Ventolin HFA] 1 INHALER inhaler 2 puff inhalation Q4H PRN PRN (Reason: Shortness Of Breath) Label Comments: shortness of breath montelukast 10 MG tablet 10 mg PO QHS fluticasone propionate 50 mcg/actuation spray,suspension 2 spray INTRANASAL QHS Label Comments: Use 1 [place] in each nostril once daily. Trelegy Ellipta 100-62.5-25 mcg blister with device 1 inh INHALATION DAILY Label Comments: Inhale 1 Puff as instructed once daily. Primary Care Provider: Julio Draper Referrals: Julio Draper MD [Primary Care Provider] - Disposition Disposition: Acute Care Hospital [facility] What to do if you have Problems For any increased pain, shortness of breath, bleeding, nausea or vomiting, chestpain, or any unexpected problems, contact your Primary Care Provider. Call [facility] ([phone]) or report to the closest Emergency Room. Call 911 if necessary. 11/30/22 1235 <Electronically signed by Zach Thomas MD> Cosigner Signature (if applicable): CC: Dr. Julio Draper MD ~ Signed [facility] Work Phone: 1([phone]) 194-831805-30-[address] Thomas [facility] November 30, 2022 12:35pm Note Date/Time November 30, 2022 11:04 am [facility] Medical Records Department [address] [place] [address] Emergency Department Summary 11/30/22 MR#: [id number] Acct: [id number] Name: SNEHA CARDENAS Rep #:[id number] : 1955 67 From: Zach Thomas MD PCP: Dr. Julio Draper MD Status:R EG ER Location: ED HPI History of Present Illness Chief Complaint: Fever Detail of Chief Complaint: Fever, cough, dyspnea, nausea and vomiting negative COVID test November Onset/Context/Timing Onset: Days Context: Gradual Onset Timing: Continuous Quality: Dyspnea, dyspnea on exertion, pain with cough Location: Anterior left chest Current Severity: Mild Maximum Severity: Moderate Worsened by: Coughing Relieved by: Not coughing Associated Symptoms Associated Symptoms: Detailed HPI narrative Narrative Narrative: Patient is a 67-year-old woman with history of COPD/asthma requiring oxygen she was diagnosed with COVID in 2020. She has not smoked in 9 years. Her last admission was 2020. She was admitted for hypoxia at that time. Patient was seen this past weekend for left-sided chest pain that radiated to the left arm. Her work-up was negative. She states she had a COVID test that was negative on Tuesday. Her 's COVID test was negative as well. She has been having increased trouble breathing since the middle of last week. She now reports documented temperatureto 101.1, productive cough with left-sided pain when she coughs. She states thesymptoms are new since she was seen Tuesday. She denies history of PE or DVT. She denies leg pain, swelling discoloration. She complains of mild global headache. She denies photophobia, neck pain or neck stiffness. Patient has not required increased oxygen at rest. She states she cannot walk as far before she has to stop. She has not checked her pulse ox at home. Patient denies abdominal pain. Denies nausea and vomiting with no diarrhea. She is status postcholecystectomy. She denies prior history of bowel obstruction. She does endorse decreased urine output and orthostatics times. Prior similar symptoms: Yes Recent Illness/Hospitalization: Yes (Cardiac chest pain work-up on Tuesday.) [facility] Medical History Anxiety Asthma Benign essential hypertension Benign essential tremor COPD (chronic obstructive pulmonary disease) Former tobacco use Pneumonia due to COVID-19 virus Home Medications albuterol sulfate 90 mcg/actuation aerosol inhaler (Ventolin HFA) 2 puff inhalation Q4H PRN PRN Shortness Of Breath 08/28/15 [History Last Taken 11/30/22 10:00] montelukast 10 mg tablet 10 mg PO QHS ALLERGIES 02/25/18 [History Last Taken 11/29/22] fluticasone fur. 100 mcg-umeclid 62.5 mcg-vilant 25 mcg inhalat.powder (Trelegy Ellipta) 1 inh inhalation DAILY COPD 05/01/21 [History Last Taken 11/30/22] fluticasone propionate 50 mcg/actuation nasal spray,suspension 2 spray intranasal QHS ALLERGIES 05/01/21 [History Last Taken 11/28/22] Allergy/AdvReac Type Severity Reaction Status Date / Time cephalexin monohydrate Allergy Chest Verified 11/30/22 10:40 [From Keflex] tightness Surgical History H/O bilateral salpingectomy History of herniorrhaphy Hx of cholecystectomy Hx of tonsillectomy Social History adopted: Yes household members: family housing: house Smoking Status: Former smoker alcohol intake: never substance use type: does not use ROS ROS ED Constitutional Constitutional ED: Reports chills, fever(s) and sweats Eyes Eyes: Denies blurry vision, change in vision or diplopia ENT ENT ED: Denies ear pain, rhinorrhea or sore throat Cardiovascular Cardiovascular: Reports chest pain; Denies orthopnea, palpitations, paroxysmal nocturnal dyspnea or racing heartbeat Respiratory/Chest Respiratory/Chest: Reports cough, dyspnea and dyspnea on exertion; Denies orthopnea or paroxysmal nocturnal dyspnea Gastrointestinal Gastrointestinal: Reports nausea and vomiting; Denies abdominal pain, constipation, diarrhea or melena Genitourinary Genitourinary ED: Reports other Details: Decreased urine output ; Denies dysuria, hematuria or urinary frequency Musculoskeletal Musculoskeletal: Reports arthralgias and myalgias; Denies back pain or neck pain Integumentary Denies abscess or rash Neurologic Neurologic: Reports headache(s) and weakness; Denies paresthesias Psychiatric Psychiatric: Reports anxiety Endocrine Endocrinology: Denies cold intolerance, heat intolerance, polydipsia or polyuria Hematologic/Lymphatic Hematologic/Lymphatic: Reports systems reviewed and no addt'l complaints, exceptas documented EXAM Physical Exam Const Vital Signs: 11/30/22 10:36 11/30/22 11:43 11/30/22 11:49 Temperature 96.5 F L 100.4 F H Temperature Source Temporal Oral Pulse Rate 114 H Respiratory Rate 18 Respiratory Pattern Normal Blood Pressure 128/58 H Blood Pressure Mean 81 Pulse Ox 95 Oxygen Delivery Method Nasal Cannula Oxygen Flow Rate (L/min) 2 11/30/22 12:04 11/30/22 12:04 Temperature 100.4 F H Temperature Source Oral Pulse Rate 99 99 Respiratory Rate 16 16 Respiratory Pattern Blood Pressure 124/61 H 124/61 H Blood Pressure Mean 82 82 Pulse Ox 96 96 Oxygen Delivery Method Nasal Cannula Nasal Cannula Oxygen Flow Rate (L/min) 2 Positive well nourished and well developed Constitutional Narrative: Patient does not look well. She does not appear toxic either. She is noted to be tachypneic and monitor reveals that she is in a sinus tachycardia with a rateof 119. Patient's lips and tongue are dry. She is having difficulty speaking because of her dry mucosa. General Appearance ED: well developed and NAD; Negative for cyanotic, diaphoretic or pallor HEENT Reports dry mucous membranes HEENT Narrative: Head is atraumatic and normocephalic. Ears are normal. Nares are patent. Uvula is midline. Posterior pharynx is normal. Mouth ED: Yes dry mucous membranes Mouth: dry mucous membranes Eyes PERRL and EOMs intact bilaterally General Eye ED: Negative for pale conjunctiva or scleral icterus Neck no lymphadenopathy, supple and no JVD Neck Narrative: There is no is your expiratory stridor. Chest Wall inspection of chest normal and palpation of chest normal Resp No normal respiratory effort and No clear to auscultation bilaterally Resp Narrative: Rales are noted bilaterally. Expiratory phase is prolonged with high pitched minimal wheezes noted. There is egophony right lower lobe and question egophonyon the left. Effort and Inspection: Negative for retractions Auscultation: rales bilateral lower (Left greater than right with egophony on the right and question egophony on the left) and wheezes expiratory wheezes, scattered wheezes and throughout Cardio regular rhythm, S1 normal heart sound, S2 normal heart sound and no murmurs Rate: tachycardic GI normal to inspection, nondistended, normoactive bowel sounds, non-tender, non-distended and no masses; Negative for hepatosplenomegaly GI Narrative: There is no ventral hernia or inguinal hernia noted. Palpation: soft Back/Spine no CVA tenderness Extremity normal to inspection Extremity Narrative: There is no asymmetry, swelling, discoloration, leg vein distention, palpable cords or tenderness along the distribution of the deep venous system. General Extremety ED: Negative for edema or tenderness General Extremity: Negative for edema Neuro oriented x3, CN's II-XII intact bilaterally and no sensory deficits noted Neuro Narrative: Patient is awake but not alert. Sensorium / Orientation: Negative for alert Psych Mood & Affect: depressed Skin no rashes or lesions noted, no wounds and No skin turgor normal General Skin Exam: Negative for elasticity normal, jaundice or pallor MDM MDM MDM Narrative Medical decision making narrative: Patient presents with infectious symptoms. This is either an exacerbation of COPD with bronchitis versus pneumonia. Suspect the chest pain is due to her pulmonary process. ABG was obtained to assess CO2 and acid-base status. CBC toassess white count differential as well as rule out anemia. Basic metabolic panel to assess renal function, electrolytes and anion gap. Lactate because of concern for sepsis. Blood cultures were ordered. We will treat with DuoNeb andalbuterol. Also will receive 125 mg Solu-Medrol. Since she had a negative COVID test on Tuesday this was not repeated. 1 L normal saline was ordered some clinically patient is dehydrated and she reports vomiting numerous times. Zofran was also ordered to treat her nausea and vomiting. History & Record Review Additional record(s) reviewed:: Prior inpatient record (Admission 2020 for hypoxia/COVID), Prior outpatient record, Prior ED visit and Prior labs Lab Data Attestation: I reviewed the patient's lab results. Lab results narrative: White count is 29.2 thousand with shift. There is no bandemia. This is markedly elevated compared to prior comprehensive metabolic panel reveals a sodium of 134. CO2 anion gap are normal. Creatinine is slight elevated 1.07 with a GFR 54. Glucose is elevated 146. Lactate is pending. In light of the elevated white count patient was treated levofloxacin. She was did not receive Rocephin since she reports chest tightness with cephalexin. Labs: Laboratory Results - last 24 hr 11/30/22 11/30/22 11/30/22 11:25 11:25 11:25 WBC 29.2 H RBC 4.09 L Hgb 12.2 Hct 37.0 MCV 90.5 MCH 29.8 MCHC 33.0 D RDW Std Deviation 43.8 RDW Coeff of Laly 13.2 Plt Count 252 MPV 9.9 Immature Gran % (Auto) 2.600 H Neut % (Auto) 88.0 H Lymph % (Auto) 2.1 L Robertson % (Auto) 6.8 Eos % (Auto) 0.2 Baso % (Auto) 0.3 Absolute Neuts (auto) 25.7 H Absolute Lymphs (auto) 0.62 L Nucleated RBC % 0 Differential Comment SCANNED Diff Path Review May foll Sodium 134 L Potassium 3.8 Chloride 98 Carbon Dioxide 29.0 Anion Gap 7 BUN 15 Creatinine 1.07 H Estim Creat Clear Calc 44.66 Est GFR (MDRD) Af Amer 66 Est GFR (MDRD) Non-Af 54 L BUN/Creatinine Ratio 14.0 Glucose 146 H Lactic Acid 1.8 Calcium 9.0 Total Bilirubin 1.10 H AST 10 L ALT 19 Alkaline Phosphatase 103 Total Protein 7.4 Albumin 2.9 L Globulin 4.5 H Albumin/Globulin Ratio 0.6 L ABG Data Attestation: I personally reviewed and interpreted this ABG as follows: Interpretation: Venous blood gas reveals mild alkalosis. This is consistent with her tachypnea which was not documented by the nurse. Repeat temperature is 100.4. ABG results: ABG 11/30/22 12:12 Specimen Type ART Sample Site L Radial pH 7.48 H Bicarbonate Actual 27.5 H Total CO2 29 Base Excess 4 H O2 Saturation 93 L ABG pCO2 37.0 ABG pO2 62 L Seven Test Positive O2 Delivery Device Cannula Liter Flow 2.0 Radiography Chest X-Ray - ED: 1 View and Read by ED Physician (Left lower lobe infiltrate this was independent reviewed interpreted by me at 1215. Cardiac size is unremarkable. Perihilar regions unremarkable. Osseous trucks unremarkable.) Diagnostic Testing: Clinical Impression(s) from Imaging Studies Chest X-Ray 11/30/22 11:10 IMPRESSION: Left lower lobe pneumonia. Electronically Signed: Yair Mcclendon MD at 12:31 EDT , Rhythm Strip Rhythm Strip: Sinus Tach Rate: 110 Ectopy: None EKG Initial EKG: Attestation: I personally reviewed and interpreted this EKG as follows: Interpretation: Sinus Rhythm (Rate is 100. UT interval is 178 ms. Cures duration 82 ms. QT duration 230 ms. Hext is normal. 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 Perez was made aware ofhistory, physical and treatment. Full admit MedSurg) Discharge Plan Triage Chief Complaint: Fever ED Provider: Zach Thomas Dx/Rx/DC Orders Clinical Impression: Community acquired pneumonia, Leukocytosis, COPD exacerbation, Acute bronchospasm, Dyspnea on exertion, Fever and chills, Sinus tachycardia Prescriptions: No Action albuterol sulfate [Ventolin HFA] 1 INHALER inhaler 2 puff inhalation Q4H PRN PRN (Reason: Shortness Of Breath) Label Comments: shortness of breath montelukast 10 MG tablet 10 mg PO QHS fluticasone propionate 50 mcg/actuation spray,suspension 2 spray INTRANASAL QHS Label Comments: Use 1 Wabeno in each nostril once daily. Trelegy Ellipta 100-62.5-25 mcg blister with device 1 inh INHALATION DAILY Label Comments: Inhale 1 Puff as instructed once daily. Primary Care Provider: Julio Draper Referrals: Julio Draper MD [Primary Care Provider] - Disposition Disposition: Acute Care Hospital [facility] What to do if you have Problems For any increased pain, shortness of breath, bleeding, nausea or vomiting, chestpain, or any unexpected problems, contact your Primary Care Provider. Call [facility] ([phone]) or report to the closest Emergency Room. Call 911 if necessary. 11/30/22 1235 <Electronically signed by Zach Thomas MD> Cosigner Signature (if applicable): CC: Dr. Julio Draper MD ~ Signed [facility] Work Phone: [phone] 548-433905-29-2023 Miscellaneous Notes* Telephone Encounter - Genna Malone RN - 11/29/2022 2:44 PM EDT Reason for Call: Fever, nausea, chills, dizziness Outcome: Advised to GO TO ED NOW. Patient verbalized understanding and is NOT agreeable to the plan. Patient states she will wait it out and call her doctor's office tomorrow. Reason for Disposition Dizziness or lightheadedness NURSING JUDGEMENT: Patient was seen at [place] ED Tuesday and told to return for any new/worsening symptoms and development of fever over 100.4 which patient is experiencing. [facility] Tuesday - Fever over 100.4 and goes up to 102 - History of COPD - HR 114 - 02 at 94% with 2L 02 - Chest pain 2/10 Quick stabbing sensation Feels it every time she coughs -Lightheaded with standing able to walk on her own short distance. Typically able to move about thehouse Chest pain not from an injury OR cause is unknown Protocols used: Chest Mwgd-TBOUD-VT, Chest Abpusi-JKHKC-CS documented in this encounterPike [facility]05-[facility]23 History of Present illness Narrative* Tasha Older, FRONT END MECHANIC.[employer] C[employer]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 - 11/15/2022 1:42 PM EDT CC: Patient presents with: Follow Up HPI Sneha L [place] is a 67 year old female who presents today for above. Patient was seen on 11/11 forworsening cough and SOB. Treated with Levaquin and prednisone for COPD exacerbation. Today patient reports she is feeling a little better. Still using oxygen continuously but sats have improved. Albuterol and Duoneb use has decreased. Denies any new or worsening symptoms. REVIEW OF SYSTEMS See HPI PAST MEDICAL HISTORY Diagnosis Date Asthma Benign essential tremor COPD (chronic obstructive pulmonary disease) ([facility]) 07/25/2012 FEV1 0.84L (32%), 10/18/2014 DDD (degenerative [...] Laterality Date ARTHROPLASTY TOTAL SHOULDER Right 02/2018 [facility]. Garo Stanford MD BREAST BIOPSY Left 30 [...] 1 tablet by mouth daily at bedtime. baledaamigr-zafesbtqw-muxuxjcx (TRELEGY ELLIPTA) 100-62.5-25 mcg inhalation powder Inhale 1 Puff asinstructed once daily. ipratropium-albuterol (DUONEB) 0.5 mg-3 mg(2.5 mg base)/3 mL nebu Inhale 3 mL as instructed every 4hours as needed for wheezing/shortness of breath. FAMILY [...] occur. Patient agreeable to treatment plan. Tasha Hurley APRN.CNP documented in this encounterPike [facility]05-11-[facility]23 History of Present illness Narrative* Jessie Hurley APRN.CNP - 11/11/2022 2:39 PM EDT CC: Patient presents with: Chest Congestion: Chest [...] essential tremor COPD (chronic obstructive pulmonary disease) ([facility]) 07/25/2012 FEV1 0.84L (32%), 10/18/2014 DDD (degenerative [...] Laterality Date ARTHROPLASTY TOTAL SHOULDER Right 02/2018 [facility]. Garo Stanford MD BREAST BIOPSY Left 30 [...] 1 tablet by mouth daily at bedtime. wbnnqrnuydl-foafvdajn-oywpwkji (TRELEGY ELLIPTA) 100-62.5-25 mcg inhalation powder Inhale 1 Puff asinstructed once daily. ipratropium-albuterol (DUONEB) 0.5 mg-3 mg(2.5 mg base)/3 mL nebu Inhale 3 mL as instructed every 4hours as needed for wheezing/shortness of breath. FAMILY [...] occur. Patient agreeable to treatment plan. Jessie Hurley APRN.CNP documented in this encounterPike [facility] Hospital05-05-2023 Nurse Note* Estella Oliva LPN - 11/05/2022 5:02 PM EDT Waist Circumference: 40 inches Estella Oliva LPN documented in this encounterPike [facility] Hospital05-05-2023 Instructions* Patient Instructions* Julio Draper MD - 11/05/2022 4:52 PM EDT Advance Directive Forms Advanced Directives Forms (Indonesian) FORMS: [email or web address] INFORMATIONAL BROCHURE: [email or web address]/-/scassets/files/org/patients-visitors/inform ation/advance-[email or web address]?la=en Advance Directives (non-Indonesian) FORMS: [email or web address]/[email or web address]-vlzzfyezb-isklf/adva nce-directives#forms-tab Please bring completed forms to your next appointment or email them to [email or web address]. Patient Resources How to Get Started Talking with Loved Ones about your Wishes at the End of Life [email or web address]://[email or web address]/wp-content/uploads//ConversationProjec k-GbcomChxbffzYyj-Ibtbure.pdf How to Navigate Conversations with your Care Team around your Preferences [email or web address] documented in this encounterPike Community Hospital05-05-2023 History of Present illness Narrative* Julio Draper MD - 11/05/2022 4:29 PM EDT This note was created using NoteWriter. Subjective Patient presents with: Yearly Exam Sneha Cardenas is a 67 year old female. She was doing reasonably well. Weight was stable, with limited ability to lose weight due to limited exercise capacity. COPD, asthma, and chronic hypoxemia were stable. Review of Systems Constitutional: Negative for activity change, appetite change, fatigue, fever and unexpected weightchange. HENT: Negative. Respiratory: Positive for shortness of breath. Negative for cough and wheezing. Cardiovascular: Negative for chest pain, palpitations and leg swelling. Gastrointestinal: Negative for abdominal pain, constipation and diarrhea. Genitourinary: Negative for difficulty urinating and dysuria. Musculoskeletal: Negative for arthralgias. Neurological: Negative for dizziness and headaches. Psychiatric/Behavioral: Negative. PAST MEDICAL HISTORY Diagnosis Date Asthma Benign essential tremor COPD (chronic obstructive pulmonary disease) ([facility]) 07/25/2012 FEV1 0.84L (32%), 10/18/2014 DDD (degenerative [...] Laterality Date ARTHROPLASTY TOTAL SHOULDER Right 02/2018 [facility]. Garo Stanford MD BREAST BIOPSY Left 30 [...] 1 tablet by mouth daily at bedtime. xwwchwzergt-verfsjzmc-gvmlywya (TRELEGY ELLIPTA) 100-62.5-25 mcg inhalation powder Inhale 1 Puff asinstructed once daily. ipratropium-albuterol (DUONEB) 0.5 mg-3 mg(2.5 mg base)/3 mL nebu Inhale 3 mL as instructed every 4hours as needed for wheezing/shortness of breath. No current facility-administered medications for this visit. Objective BP (P) 128/72 (BP Site: Left Arm, BP Position: Sitting, BP Cuff Size: Regular Adult) Pulse (P) 78 Resp (P) 16 Ht (P) 162.6 cm (5' 4) Wt (P) 70.8 kg (156 lb) SpO2 [...] with patient, and I recommended no further interventionat this time. Assessment and Plan 1. Routine [...] 20) Julio Draper MD documented in this encounterPike [facility] Hospital04-22-2023 Miscellaneous Notes* Telephone Encounter - Anushka Alexis LPN - 10/23/2022 11:52 AM EDT Patient has been identified by name and [...] Please advise. Thank you. Anushka Alexis LPN * Telephone Encounter - Genna Sarmiento - 10/23/2022 10:28 AM EDT Patient has been identified by name and date of : Yes, Provider JULIO DRAPER Date 10/23/22Time 1029 Patient phones for refill(s): Requested Prescriptions [...] Thank you. Genna Sarmiento documented in this encounterPike [facility] Hospital03-10-2023 Miscellaneous Notes* Telephone Encounter - Ericka Christopher LPN - 09/10/2022 3:04 PM EST Last seen pcp 05/03/22. Next appt with pcp 11/05/22. * Telephone Encounter - Luna Pichardo - 09/10/2022 1:56 PM EST Pharmacy verified in Epic Patient has been identified by name and [...] advise. Luna Kelly Pss documented in this encounterPike [facility] Hospital01-28-2023 Miscellaneous Notes* Telephone Encounter - Anushka Alexis LPN - 07/31/2022 9:18 AM EST Patient has been identified by name and [...] Please advise. Thank you. Anushka Alexis LPN * Telephone Encounter - Jacinta Luna - 07/31/2022 9:09 AM EST Patient has been identified by name and [...] Thank you. Jacinta Luna documented in this encounterPike [facility] Hospital11-22-2022 History of Present illness Narrative* Magali Nieves MD - 05/25/2022 1:30 PM EST Images from the original note were not included. . [facility] [place] Note Patient name: Sneha Cardenas PCP: Julio Draper MD CC: COPD HPI: Sneha Cardenas 67 year old female former less than < 20 ppd smoker, quitting in 2016 withPMH significant for tremor, HTN, COVID PNA 04/2021 (treated with monoclonal antibodies and oxygen),chronic hypoxemic respiratory failure, severe COPD former patient [...] Chronic cough, wheezing, chest pain. No nocturnal awakenings.Chest CT shows emphysema and resolution of her GGO. She does not qualify for LDCT of chest for cancer screening based on pack year history less than 20 but would recommend follow-up chest CT on one year for other nodules. DME: [facility] DATA: PFT 2020: Christopher function test shows moderately severe obstruction Imaging / Diagnostic Studies: DATE OF EXAM: May 25 2022 1:28PM [facility] 0541 - CT CHEST WO IVCON / [...] imaged thyroid gland is normal. No lymphadenopathy inthe supraclavicular, axillary, mediastinal, or hilar regions. Lymph [...] the upper abdomen demonstrates no interval changes. Door Trimmer (topogram) images: No additional findings. IMPRESSION: Interval resolution of previously seen groundglass opacities in the right lower lobe. Moderate emphysema. A few stable lung nodules as described above. No new nodules seen. Remote granulomatous disease. I personally reviewed the images and agree with the above assessment PAST MEDICAL HISTORY Diagnosis Date Asthma Benign essential tremor COPD (chronic obstructive pulmonary disease) ([facility]) 07/25/2012 FEV1 0.84L (32%), 10/18/2014 DDD (degenerative [...] (FLONASE) 50 mcg/actuation nasal spray Use 1 Wabeno in each nostril once daily. montelukast (SINGULAIR) 10 mg tablet Take 1 tablet by mouth daily at bedtime. dmtlpgzbhvx-qsvkxsbzb-afykkhkk (TRELEGY ELLIPTA) 100-62.5-25 mcg inhalation powder Inhale 1 Puff asinstructed once daily. albuterol HFA (PROAIR HFA) 90 mcg/actuation inhaler Inhale 2 Puffs as instructed every 4 hours as needed. ipratropium-albuterol (DUONEB) 0.5 mg-3 mg(2.5 mg base)/3 mL nebu Inhale 3 mL as instructed every 4hours as needed for wheezing/shortness of breath. Social [...] compliant with and benefits from supplemental oxygen Magali Nieves MD [facility] [place] documented in this encounterPike [facility] Hospital11-22-2022 History of Present illness Narrative* Jacinto Blanchard RT(R) - 05/25/2022 1:00 PM EST Radiology Service Progress Note PATIENT NAME: Sneha Cardenas DATE OF SERVICE: May 25, 2022 TIME: 2:17 PM PATIENT IDENTITY VERIFICATION COMPLETED USING TWO (2) IDENTIFIERS: Name and Date of confirmedby patient verbally. FALL SCREENING: Has the patient [...] 25, 2022 2:17 PM documented in this encounterPike Community Hospital10-31-2022 History of Present illness Narrative* Julio Draper MD - 05/03/2022 2:43 PM EDT This note was created using NoteWriter. Subjective Sneha Cardenas is a 66 year [...] as instructed every 4 hours as needed. vnmicvbmzft-wvuoltvyi-egghrdip (TRELEGY ELLIPTA) 100-62.5-25 mcg inhalation powder Inhale 1 Puff asinstructed once daily. montelukast (SINGULAIR) 10 mg tablet Take 1 tablet by mouth daily at bedtime. ipratropium-albuterol (DUONEB) 0.5 mg-3 mg(2.5 mg base)/3 mL nebu Inhale 3 mL as instructed every 4hours as needed for wheezing/shortness of breath. albuterol (PROVENTIL) 2.5 mg /3 mL (0.083 %) nebulizer solution Use 3 mL via nebulizer every 6 hours as needed for Wheezing/Shortness of Breath. 1 vial contains 3 ml. fluticasone (FLONASE) 50 mcg/actuation nasal spray Use 1 Wabeno in each nostril once daily. No current [...] or rales. Comments: On O2 via tank, [place] Musculoskeletal: Right lower leg: No edema. Left [...] SEASONAL QUADRIVALENT HIGH DOSE AGE 65+ - PFIZER-BIONTECH COVID-19 BIVALENT BOOSTER VACCINE, AGE 12+ YR [...] <130/80 Julio Draper MD documented in this encounterPike Community Hospital10-20-2022 Miscellaneous Notes* Telephone Encounter - Any Chu RN - 04/22/2022 1:11 PM EDT Pt called in asking for an update on below. Notified requested paperwork was faxed today 04/22/22. Pt verbalized understanding * Telephone Encounter - Jacinto Solorio LPN - 04/22/2022 12:58 PM EDT Faxed demographic sheet to [facility]. Jacinto Solorio LPN * Telephone Encounter - Jacinto Solorio LPN - 04/22/2022 12:54 PM EDT [facility] called. Verified name and date of of patient. Per [facility] they have O2 Order but need demographics for patient. Need demographics faxed to . Jacinto Solorio LPN documented in this encounterPike Community Hospital10-20-2022 Miscellaneous Notes* Telephone Encounter - Luna Swartz PA-C - 04/22/2022 11:19 AM EDT Printed and signed new order. If [facility] does not accept it, patient has an upcoming appointment with Dr. Nieves that we can add an oximetry with ambulation. Paulette * Telephone Encounter - Abimbola Lewis LPN - 04/21/2022 10:52 AM EDT Will forward to Paulette for her return to clinic . Last order from [place] [facility]. Abimbola Lewis LPN * Telephone Encounter - Bindu Acuña Ma - 04/21/2022 10:01 AM EDT Patient called in asking for oxygen order, office notes and insurance card to be faxed to [facility] at [phone]. documented in this encounterPike Community Hospital10-19-2022 Miscellaneous Notes* Telephone Encounter - Franky Muro Ma - 04/21/2022 10:07 AM EDT RONALD: 11/12/2021 Last refill: 06/23/2020 QTY: 100 Refills: 1 * Telephone Encounter - Grace Farr Pss - 04/20/2022 4:19 PM EDT Patient has been identified by name and date of : Yes Requested Prescriptions Pending Prescriptions Disp Refills albuterol HFA (PROAIR HFA) 90 mcg/actuation inhaler 36 g 11 Sig: Inhale 2 Puffs as instructed every 4 hours as needed. RX INSTRUCTIONS: Patient aware RX will be sent to pharmacy. No need to notify patient. Grace Farr Pss documented in this encounterPike Community Hospital07-28-2022 Miscellaneous Notes* Telephone Encounter - Luna Swartz PA-C - 01/28/2022 10:55 AM EDT Script printed and signed. May be FAXED to [facility]. P[place]lette * Telephone Encounter - Mary Kay Woodard RN - 01/27/2022 11:17 AM EDT Pt called in and reports that [facility] needs her to send in a new prescription for her oxygen. She states the old one was from the hospital when she was in with Covid and it is about to . Please send new order for O2 to [facility] at [phone]. documented in this encounterPike Community Hospital07-21-2022 History of Present illness Narrative* Luna Swartz PA-C - 01/21/2022 3:22 PM EDT [facility] [place], 01/21/2022: Name: Sneha Cardenas : 1955 The patient is here by herself. HPI: Sneha Cardenas is a 66 yo female former smoker, [id number] with PMH significant for COPD, benign essential tremor, HTN, tubular adenoma 2009, and Covid 19 pneumonia in April 2021 requiring hospitalization and supplemental oxygen despite receiving monoclonal antibodies. The patient is here for follow up of COPD. Since the last Pulmonary Clinic visit 05/25/2021, the patient presented to on 11/02 secondary toshortness of breath and coughing as well as lightheadedness with vertigo. Was directed to go to [facility] for further evaluation. CTA negative for PE. Treated with Prednisone. Claims to be consistently compliant with prescribed maintenance Rx Trelegy ellipta and Montelukast.Using Flonase nightly and states the post nasal [...] 87 Resp 16 Ht 162.6 cm (5' 4) Wt 71.7 kg (158 lb) SpO2 98% [...] Electronically Signed On 05-22-2021 15:59:55 EST by Magali Nieves M.D. ASSESSMENT/PLAN: 1. Stage 3 severe COPD by GOLD classification (HCC) - ICD9: 496, ICD10: J44.9 (primary diagnosis) Symptomatically doing well on Trelegy. Albuterol HFA inhaler, 2 inhalations 10 15 minutes prior to activities associated with shortness ofbreath, and as needed for rescue relief of [...] understanding and acceptance of my answers. Luna Swartz PA-C documented in this encounterP[facility] Nurse Note* Abimbola Lewis LPN - 01/21/2022 3:20 PM EDT Intake information documented in the prior visit with RANGEL Leone today. documented in this encounterPike [facility]07-[facility]22 Procedure note* RANGEL Leone - 01/21/2022 3:19 PM EDT Associated Order(s): OXIMETRY WITH AMBULATION RESPIRATORY THERAPY [...] TIME: 3:19 PM Comment: documented in this encounterPike [facility]07-21-2022 History of Present illness Narrative* RANGEL Leone - 01/21/2022 3:04 PM EDT PULM FUNCTION SMARTBLOCK: Provider: Luna Swartz PA-C Assisting Tech: RANGEL Leone Oximetry - Ambulation: 1 documented in this encounterPike [facility]07-08-2022 Miscellaneous Notes* Telephone Encounter - Luna Swartz PA-C - 01/08/2022 9:16 AM EDT Order placed * Telephone Encounter - Abimbola Lewis LPN - 01/08/2022 9:09 AM EDT Spoke with patient. We will do updated oximetry on 01/21 at her office visit to confirm need and then contact [facility]. [place] order. Abimbola Lewis LPN * Telephone Encounter - Bindu Acuña Ma - 01/08/2022 8:15 AM EDT Patient called in stating she received a letter from [facility] stating they need more information to get her supplies and oxygen covered. She asked that the office reach out to [facility] at [phone] to give more information. documented in this encounterPike [facility]05-12-2022 History of Present illness Narrative* Reema Jiménez APRN.SENIOR MARKETING SPECIALIST - 11/12/2021 1:00 PM EDT SUBJECTIVE: SHINGRIX VACCINE(1 of 2) Never done ADVANCE DIRECTIVE DISCUSSION Never done HPI Sneha Cardenas is a 66 year old female. PMH signicant for ACTIVE PROBLEM LIST Essential Tremor Environmental Allergies Copd With Asthma (Hcc) Hyperlipidemia Age-Related Osteoporosis Without Current Pathological Fracture PCP: Julio Draper MD Presents today with report of vertigo and low back pain. Seen at [facility] for increased shortness of breath and dizziness on 11/02/2021 D-dimer elevated. CTA chest completed to exclude PE.No evidence of pulmonary embolism. Findings suggestive of mild scarring at the lung bases. She was treated with burst course of prednisone. Noted if breathing not improving then follow-up with her muleser. Dizziness abated while in ER with treatment, [...] to [address] Kent muleser COPD and asthma. She reports having nausea [...] (FLONASE) 50 mcg/actuation nasal spray, Use 1 [place] in each nostril once daily. montelukast (SINGULAIR) 10 mg tablet, Take 1 tablet by mouth daily at bedtime. gzoikruodm-xgiiimqu-qhnmoyantu (BREZTRI AEROSPHERE) 160-9-4.8 mcg/actuation HFA aerosol inhaler, [...] essential tremor COPD (chronic obstructive pulmonary disease) ([facility]) 07/25/2012 FEV1 0.84L (32%), 10/18/2014 DDD (degenerative disc disease), cervical 08/15/2015 Environmental allergies Wheezes with hay or dust Essential and other specified forms of tremor 11/02/2007 Benign essential -- started primidone 06/03/09, Dr. Nguyễn Essential hypertension, benign 05/17/2011 History of colon polyps 2010 Tubular adenoma. Hypertension Irritable bowel syndrome Migraine [...] 10 MG TABLET 5. COPD with asthma (HCC) - ICD9: 493.20, ICD10: J44.9 Continue current treatment, schedule follow-up with pulmonology. - CONSULT TO PULM/CRITICAL CARE Reema Jiménez APRN.CNS Medical Decision Making: Problems: Low: Acute, uncomplicated illness or injury Risk: Moderate: Drug management Medical Decision Making Level: 3 - Low documented in this encounterPike [facility] Hospital05-02-2022 History of Present illness Narrative* Rachel Mayo APRN.CISCO CERTIF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 - 11/02/2021 11:28 AM EDT Subjective HPI Sneha Cardenas is a 66 [...] kg (157 lb 6.4 oz) SpO2 90% BMI27.02 kg/m PAST MEDICAL HISTORY Diagnosis Date Asthma Benign essential tremor COPD (chronic obstructive pulmonary disease) ([facility]) 07/25/2012 FEV1 0.84L (32%), 10/18/2014 DDD (degenerative [...] Laterality Date ARTHROPLASTY TOTAL SHOULDER Right 02/2018 [facility]. Garo Stanford MD BREAST BIOPSY Left 30 [...] 1 tablet by mouth daily at bedtime. dzkjnhgyak-tpxemdrx-ubqozeoblf (BREZTRI AEROSPHERE) 160-9-4.8 mcg/actuation HFA aerosol inhaler Inhale 2 Puffs as instructed twice daily. ipratropium-albuterol (DUONEB) 0.5 mg-3 mg(2.5 mg base)/3 mL nebu Inhale 3 mL as instructed every 4hours as needed for wheezing/shortness of breath. albuterol HFA (PROAIR HFA) 90 mcg/actuation inhaler Inhale 2 Puffs as instructed every 4 hours as needed. fluticasone (FLONASE) 50 mcg/actuation nasal spray Use 1 [place] in each nostril once daily. albuterol (PROVENTIL) [...] negative. Radiologist IMPRESSION: No acute radiographic abnormality. Director Of Vocational Training: JING Transcribe Date/Time: Nov 02 2021 12:07P Dictated by : IBRAHIMA ANGELES MD 2. SOB (shortness of breath) - ICD9: 786.05, ICD10: R06.02 - referred to ER. Patient states she is very concerned about this shortness of breath and does not feel normal. Due to history of COVID should rule out PE. Offered further evaluation here or referralto ER, patient will go to ER. Report sent to [facility] via ER Passport. Rachel Mayo APRN.CISCO CERTIF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 documented in this encounterPike [facility] Hospital04-13-2022 Instructions* Patient Instructions* Ev Hinlke APRN.CISCO CERTIF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 - 10/14/2021 10:47 AM EDT Ear Infection [...] heating pad on as this can cause sousa. What follow-up care is needed? Your doctor [...] contagious, but need treatment. documented in this encounterPike [facility] Hospital04-13-2022 History of Present illness Narrative* Ev Hinkle APRN.MARIAN - 10/14/2021 10:29 AM EDT Subjective Patient came in with complains of both ears feeling clogged. Patient said left one started a week ago and right one started yesterday. Patient said she has always had trouble with ear wax build up and needed them flushed. patient said it feels the same. The history is provided by the patient. No chinese language professor was used. Ear Problem Review of Systems [...] essential tremor COPD (chronic obstructive pulmonary disease) ([facility]) 07/25/2012 FEV1 0.84L (32%), 10/18/2014 DDD (degenerative disc disease), cervical 08/15/2015 Environmental allergies Wheezes with hay or dust Essential and other specified forms of tremor 11/02/2007 Benign essential -- started primidone 06/03/09, Dr. Nguyễn Essential hypertension, benign 05/17/2011 History of colon polyps 2010 Tubular adenoma. Hypertension Irritable bowel syndrome Migraine headache Improved with primidone Scoliosis Snoring Tobacco use disorder Quit 03/04/2015. Unspecified gastritis and gastroduodenitis without mention of hemorrhage 02/09/2010 Small ulcer on EGD 2009 PAST SURGICAL HISTORY Procedure Laterality Date ARTHROPLASTY TOTAL SHOULDER Right 02/2018 [facility]. Garo Stanford MD BREAST BIOPSY Left 30 [...] 1 tablet by mouth daily at bedtime. feufsbmbuu-rolptagk-heaalacxff (BREZTRI AEROSPHERE) 160-9-4.8 mcg/actuation HFA aerosol inhaler Inhale 2 Puffs as instructed twice daily. ipratropium-albuterol (DUONEB) 0.5 mg-3 mg(2.5 mg base)/3 mL nebu Inhale 3 mL as instructed every 4hours as needed for wheezing/shortness of breath. albuterol HFA (PROAIR HFA) 90 mcg/actuation inhaler Inhale 2 Puffs as instructed every 4 hours as needed. fluticasone (FLONASE) 50 mcg/actuation nasal spray Use 1 [place] in each nostril once daily. albuterol (PROVENTIL) [...] Patient denies any pain or complications this time.patient stated she feels better but a little dizzy. Ev Hinkle APRN.CNP documented in this encounterPike [facility] Hospital10-19-2021 History of Present illness Narrative* Rosa Solano RT(R) - 04/21/2021 10:40 AM EDT Radiology Service Progress Note PATIENT NAME: Sneha Cardenas DATE OF SERVICE: April 21, 2021 TIME: 10:40 AM PATIENT IDENTITY VERIFICATION COMPLETED USING TWO (2) IDENTIFIERS: Name and Date of confirmedby patient verbally. FALL SCREENING: Has the patient [...] DATA: Not applicable SIGNED BY: RT [place](R) April 21, 2021 10:40 AM documented in this encounterPike [facility] Hospital12-01-2016 History of Past illness Narrative* Problem [...] of this encounter (statuses as of 10/14/2021) [facility] Narrative* Problem [...] of this encounter (statuses as of 11/02/2021) [facility] Narrative* Problem [...] of this encounter (statuses as of 11/12/2021) [facility] Narrative* Problem [...] of this encounter (statuses as of 01/08/2022) [facility] Narrative* Problem [...] of this encounter (statuses as of 01/21/2022) [facility] Narrative* Problem [...] of this encounter (statuses as of 01/21/2022) [facility] Narrative* Problem [...] of this encounter (statuses as of 01/28/2022) [facility] Narrative* Problem [...] of this encounter (statuses as of 04/21/2022) [facility] Narrative* Problem [...] of this encounter (statuses as of 04/22/2022) [facility] Narrative* Problem [...] of this encounter (statuses as of 04/22/2022) [facility] Narrative* Problem [...] of this encounter (statuses as of 05/03/2022) [facility] Narrative* Problem [...] of this encounter (statuses as of 05/31/2022) [facility] Narrative* Problem [...] of this encounter (statuses as of 05/31/2022) [facility] Narrative* Problem [...] of this encounter (statuses as of 06/14/2022) [facility] Narrative* Problem [...] of this encounter (statuses as of 08/02/2022) [facility] Narrative* Problem [...] of this encounter (statuses as of 09/10/2022) [facility] Narrative* Problem [...] of this encounter (statuses as of 10/11/2022) [facility] Narrative* Problem [...] of this encounter (statuses as of 10/25/2022) [facility] Narrative* Problem [...] of this encounter (statuses as of 11/07/2022) [facility] Narrative* Problem [...] of this encounter (statuses as of 11/12/2022) [facility] Narrative* Problem [...] of this encounter (statuses as of 11/15/2022) [facility]* Problem [...] of this encounter (statuses as of 11/29/2022) [facility]* Problem [...] of this encounter (statuses as of 12/11/2022) [facility]* Problem [...] of this encounter (statuses as of 12/06/2022) [facility]* Problem [...] of this encounter (statuses as of 12/07/2022) [facility]* Problem [...] of this encounter (statuses as of 01/08/2023) [facility] Problem [...] of this encounter (statuses as of 01/19/2023) [facility]* Problem [...] of this encounter (statuses as of 02/16/2023) [facility] Problem [...] of this encounter (statuses as of 02/22/2023) [facility] Problem [...] of this encounter (statuses as of 03/03/2023) [facility] Problem [...] of this encounter (statuses as of 04/27/2023) [facility] Problem [...] of this encounter (statuses as of 2023) [facility] Problem [...] of this encounter (statuses as of 05/26/2023) [facility] Problem [...] of this encounter (statuses as of 05/30/2023) [facility] Problem [...] of this encounter (statuses as of 06/17/2023) [facility]* Problem [...] of this encounter (statuses as of 06/18/2023) [facility]* Problem Noted Date Diagnosed Date Resolved Date Cervical disc disorder with radiculopathy 08/15/2015 02/10/2017 DDD (degenerative disc disease), cervical 08/15/2015 02/10/2017 Essential hypertension, benign 05/17/2011 07/15/2015 Unspecified gastritis and ga stroduodenitis without mention of hemorrhage 02/09/2010 07/15/2015 Overview: Small ulcer on EGD 2009 Blood in stool 02/09/2010 07/20/2012 Loss of weight 02/09/2010 07/20/2012 Acute gastritis without mention of hemorrhage 02/10/20 10 07/20/2012 Other specified disorder of gallbladder 12/11/2007 07/20/2012 Tobacco use disorder 11/02/2007 017 Overview: Since age 19 Migraine headache 07/15/2015 Overview: improved with primidone Irritable bowel syndrome 06/2016 Scoliosis 02/10/2017 History of colon polyps 07/04 Overview: 2009 tubular adenoma Asthma 02/15/2019 documented as of this encounter (statuses as of 08/09/2023) [facility] N[facility]* Problem Noted Date Diagnosed Date Resolved Date Cervical disc disorder with radiculopathy 08/15/2015 02/10/2017 DDD (degenerative disc disease), cervical 08/15/2015 02/10/2017 Essential hypertension, benign 05/17/2011 07/15/2015 Unspecified gastritis and ga stroduodenitis without mention of hemorrhage 02/09/2010 07/15/2015 Overview: Small ulcer on EGD 2009 Blood in stool 02/09/2010 07/20/2012 Loss of weight 02/09/2010 07/20/2012 Acute gastritis without mention of hemorrhage 02/10/20 10 07/20/2012 Other specified disorder of gallbladder 12/11/2007 07/20/2012 Tobacco use disorder 11/02/2007 017 Overview: Since age 19 Migraine headache 07/15/2015 Overview: improved with primidone Irritable bowel syndrome 06/2016 Scoliosis 02/10/2017 History of colon polyps 07/04 Overview: 2009 tubular adenoma Asthma 02/15/2019 documented as of this encounter (statuses as of 08/10/2023) [facility] N[facility]* Problem Noted Date Diagnosed Date Resolved Date Cervical disc disorder with radiculopathy 08/15/2015 02/10/2017 DDD (degenerative disc disease), cervical 08/15/2015 02/10/2017 Essential hypertension, benign 05/17/2011 07/15/2015 Unspecified gastritis and ga stroduodenitis without mention of hemorrhage 02/09/2010 07/15/2015 Overview: Small ulcer on EGD 2009 Blood in stool 02/09/2010 07/20/2012 Loss of weight 02/09/2010 07/20/2012 Acute gastritis without mention of hemorrhage 02/10/20 10 07/20/2012 Other specified disorder of gallbladder 12/11/2007 07/20/2012 Tobacco use disorder 11/02/2007 017 Overview: Since age 19 Migraine headache 07/15/2015 Overview: improved with primidone Irritable bowel syndrome 06/2016 Scoliosis 02/10/2017 History of colon polyps 07/04 Overview: 2009 tubular adenoma Asthma 02/15/2019 documented as of this encounter (statuses as of 08/10/2023) [facility]* Problem Noted Date Diagnosed Date Resolved Date Cervical disc disorder with radiculopathy 08/15/2015 02/10/2017 DDD (degenerative disc disease), cervical 08/15/2015 02/10/2017 Essential hypertension, benign 05/17/2011 07/15/2015 Unspecified gastritis and ga stroduodenitis without mention of hemorrhage 02/09/2010 07/15/2015 Overview: Small ulcer on EGD 2009 Blood in stool 02/09/2010 07/20/2012 Loss of weight 02/09/2010 07/20/2012 Acute gastritis without mention of hemorrhage 02/10/20 10 07/20/2012 Other specified disorder of gallbladder 12/11/2007 07/20/2012 Tobacco use disorder 11/02/2007 017 Overview: Since age 19 Migraine headache 07/15/2015 Overview: improved with primidone Irritable bowel syndrome 06/2016 Scoliosis 02/10/2017 History of colon polyps 07/04 Overview: 2009 tubular adenoma Asthma 02/15/2019 documented as of this encounter (statuses as of 08/15/2023) [facility]* Problem Noted Date Diagnosed Date Resolved Date Cervical disc disorder with radiculopathy 08/15/2015 02/10/2017 DDD (degenerative disc disease), cervical 08/15/2015 02/10/2017 Essential hypertension, benign 05/17/2011 07/15/2015 Unspecified gastritis and ga stroduodenitis without mention of hemorrhage 02/09/2010 07/15/2015 Overview: Small ulcer on EGD 2009 Blood in stool 02/09/2010 07/20/2012 Loss of weight 02/09/2010 07/20/2012 Acute gastritis without mention of hemorrhage 02/10/20 10 07/20/2012 Other specified disorder of gallbladder 12/11/2007 07/20/2012 Tobacco use disorder 11/02/2007 017 Overview: Since age 19 Migraine headache 07/15/2015 Overview: improved with primidone Irritable bowel syndrome 06/2016 Scoliosis 02/10/2017 History of colon polyps 07/04 Overview: 2009 tubular adenoma Asthma 02/15/2019 documented as of this encounter (statuses as of 08/17/2023) [facility]* Problem Noted Date Diagnosed Date Resolved Date Cervical disc disorder with radiculopathy 08/15/2015 02/10/2017 DDD (degenerative disc disease), cervical 08/15/2015 02/10/2017 Essential hypertension, benign 05/17/2011 07/15/2015 Unspecified gastritis and ga stroduodenitis without mention of hemorrhage 02/09/2010 07/15/2015 Overview: Small ulcer on EGD 2009 Blood in stool 02/09/2010 07/20/2012 Loss of weight 02/09/2010 07/20/2012 Acute gastritis without mention of hemorrhage 02/10/20 10 07/20/2012 Other specified disorder of gallbladder 12/11/2007 07/20/2012 Tobacco use disorder 11/02/2007 017 Overview: Since age 19 Migraine headache 07/15/2015 Overview: improved with primidone Irritable bowel syndrome 06/2016 Scoliosis 02/10/2017 History of colon polyps 07/04 Overview: 2009 tubular adenoma Asthma 02/15/2019 documented as of this encounter (statuses as of 08/22/2023) [facility]* Problem Noted Date Diagnosed Date Resolved Date Cervical disc disorder with radiculopathy 08/15/2015 02/10/2017 DDD (degenerative disc disease), cervical 08/15/2015 02/10/2017 Essential hypertension, benign 05/17/2011 07/15/2015 Unspecified gastritis and ga stroduodenitis without mention of hemorrhage 02/09/2010 07/15/2015 Overview: Small ulcer on EGD 2009 Blood in stool 02/09/2010 07/20/2012 Loss of weight 02/09/2010 07/20/2012 Acute gastritis without mention of hemorrhage 02/10/20 10 07/20/2012 Other specified disorder of gallbladder 12/11/2007 07/20/2012 Tobacco use disorder 11/02/2007 017 Overview: Since age 19 Migraine headache 07/15/2015 Overview: improved with primidone Irritable bowel syndrome 06/2016 Scoliosis 02/10/2017 History of colon polyps 07/04 Overview: 2010 tubular adenoma Asthma 02/15/2019 documented as of this encounter (statuses as of 08/23/2023) [facility]* Problem Noted Date Diagnosed Date Resolved Date Cervical disc disorder with radiculopathy 08/15/2015 02/10/2017 DDD (degenerative disc disease), cervical 08/15/2015 02/10/2017 Essential hypertension, benign 05/17/2011 07/15/2015 Unspecified gastritis and ga stroduodenitis without mention of hemorrhage 02/09/2010 07/15/2015 Overview: Small ulcer on EGD 2009 Blood in stool 02/09/2010 07/20/2012 Loss of weight 02/09/2010 07/20/2012 Acute gastritis without mention of hemorrhage 02/10/20 10 07/20/2012 Other specified disorder of gallbladder 12/11/2007 07/20/2012 Tobacco use disorder 11/02/2007 017 Overview: Since age 19 Migraine headache 07/15/2015 Overview: improved with primidone Irritable bowel syndrome 06/2016 Scoliosis 02/10/2017 History of colon polyps 07/04 Overview: 2010 tubular adenoma Asthma 02/15/2019 documented as of this encounter (statuses as of 08/23/2023) [facility] Guido Oliveira [facility] June 20, 2023 11:25am Note Date/Time June 20, 2023 10:22am [facility] Medical Records Department [address] [place] [address] Emergency Department Summary 06/20/23 MR#: [id number] Acct: [id number] Name: SNEHA CARDENAS Rep #:[id number] : 1955 68 From: Guido Oliveira MD PCP: Dr. Julio Draper MD Status:R EG ER Location: ED HPI History of Present Illness Chief Complaint: Alt LOC Narrative Narrative: 68-year-old female, past medical history of COPD, was recently released from [facility]. She states that initially, she had coming to the hospital and has been here for quite some time. She was released on of last week, 5 days ago. She relates history that she developed atrial fibrillation, and then had GI bleeding that required cauterization. She is still having black stool. Her states that she had 2 syncopal episodes today. She has not been eating as well, and he was told that she needs to get up and walk around if she is to get better. He states he got her up and she took a few steps and passed out. Her syncopal episode was for approximately 30 seconds. He called 911. Reported on their arrival, she had another syncopal episode and tensed up for 5 to 10 seconds. There was no loss of bowel or bladder or postictal state. Shepresents because of generalized weakness and these reported 2 syncopal episodes. She denies any pain but states she might feel generally weak. [facility] Medical History Anxiety Asthma Benign essential hypertension Benign essential tremor COPD (chronic obstructive pulmonary disease) Former tobacco use Lung nodules Migraines On home oxygen therapy Pneumonia due to COVID-19 virus Home Medications albuterol sulfate 90 mcg/actuation aerosol inhaler (Ventolin HFA) 2 puff inhalation Q4H PRN PRN Shortness Of Breath 08/28/15 [History Last Taken 11/30/22 10:00] montelukast 10 mg tablet 10 mg PO QHS ALLERGIES 02/25/18 [History Last Taken 11/29/22] fluticasone fur. 100 mcg-umeclid 62.5 mcg-vilant 25 mcg inhalat.powder (Trelegy Ellipta) 1 inh inhalation DAILY COPD 05/01/21 [History Last Taken 11/30/22] fluticasone propionate 50 mcg/actuation nasal spray,suspension 2 spray intranasal QHS ALLERGIES 05/01/21 [History Last Taken 11/28/22] buspirone 5 mg tablet 10 mg (2 x 5 mg) PO BID 30 days #120 tabs 06/16/23 [Rx Last Taken Unknown] metoprolol tartrate 25 mg tablet 25 mg PO BID 30 days #60 tabs 06/16/23 [Rx Last Taken Unknown] pantoprazole 40 mg tablet,delayed release (Protonix) 40 mg PO BID 30 days #60 tabs 06/16/23 [Rx Last Taken Unknown] prednisone 10 mg tablet 30 mg (3 x 10 mg) PO DAILY 3 days #9 tabs 06/16/23 [Rx Last Taken Unknown] prednisone 20 mg tablet 20 mg PO DAILY 3 days #3 tabs 06/16/23 [Rx Last Taken Unknown] prednisone 20 mg tablet 40 mg (2 x 20 mg) PO DAILY 3 days #6 tabs 06/16/23 [Rx Last Taken Unknown] sucralfate 1 gram tablet 1 g PO 0700,1100,1600 30 days #90 tabs 06/16/23 [Rx Last Taken Unknown] Allergy/AdvReac Type Severity Reaction Status Date / Time cephalexin monohydrate Allergy Chest Verified 06/20/23 10:07 [From Keflex] tightness Surgical History H/O bilateral salpingectomy History of herniorrhaphy Hx of cholecystectomy Hx of tonsillectomy Social History adopted: Yes household members: family housing: house Smoking Status: Former smoker alcohol intake: never substance use type: does not use ROS ROS ED ROS Narrative Constitutional: No fever, no chills. Lysed weakness. HEENT: No sore throat. No neck pain. No loss of vision. No rhinorrhea. Cardiovascular: No chest pain. No palpitations. No pedal edema. 2 episodes ofsyncope. Respiratory: No cough, if, increasing shortness of breath. Abdominal: No abdominal pain. No nausea. No vomiting. Still having black stool. Genitourinary: No dysuria. No hematuria. Musculoskeletal: No myalgias. No arthralgias. Neurologic: No headaches. No dizziness. No lightheadedness. Skin: No rash. No change in color. Psychiatric: No depression. No anxiety. EXAM Physical Exam Narrative Exam Narrative: Afebrile. Vital signs noted. HEENT: Normocephalic. Atraumatic. PERRL, EOMI. Neck soft and supple. No pointtenderness or step off. Cardiovascular: Regular rate and rhythm. No murmurs, rubs, or gallops appreciated. Respiratory: No tachypnea. Lungs clear to auscultation bilaterally. Gastrointestinal: Abdomen soft, nontender, with normoactive bowel sounds. No rebound or guarding. Neurological: Awake. Alert. Nonfocal, nonlateralizing. Skin: No rash. Normal color. Positive pallor. Musculoskeletal: No pedal edema. Full range of motion extremities. Const Vital Signs: 06/20/23 10:08 06/20/23 10:55 Temperature 98.4 F Temperature Source Oral Pulse Rate 72 65 Respiratory Rate 18 16 Blood Pressure 105/42 L 100/42 L Blood Pressure Mean 63 61 Pulse Ox 95 100 Oxygen Delivery Method Nasal Cannula Nasal Cannula Oxygen Flow Rate (L/min) 3 3 MDM MDM MDM Narrative Medical decision making narrative: I reviewed the EMS report, and she was hypotensive at 85 systolic. Her syncopalepisodes may have been from volume depletion. Currently, her blood pressure is 105/42. She is very pallor. She may have generalized weakness and syncope secondary to anemia. She complains more of shortness of breath than anything else, she has had this for the last few days. Low suspicion for new onset seizure as there was no postictal state and there was no tonic-clonic activity. She may also be dehydrated given her transient hypotension. She will be bolusedIV fluids. Her states that yesterday she complained of dysuria and burning with urination. I will obtain a lactic acid and urinalysis to help ruleout sepsis, but currently she is not meeting any SIRS criteria as she is not tachycardic, and afebrile. I reviewed her prior records, and her gastroenterology report from 10 June, approximately 10 days ago. She did have a bleeding ulcer at that time which wascauterized and epinephrine injected. I reviewed her laboratory work from today and she has an elevated white count of 15.5 which I think is nonspecific, of significance is her hemoglobin which is low at 4.6. The prior was just above 7. Platelet count is elevated at 459. She is slightly hypokalemic with a potassium of 3.4, BUN of 31 with creatinine 0.58 consistent with upper GI bleeding. Lactic acid is slightly elevated at 2.2 which may also be from dehydration. She is not hypotensive currently. Given her profound anemia, she was typed and crossmatched for 4 units of packed red blood cells. Transfusion will be given in the emergency department. I discussed patient with Dr. Antunez who is familiar with the patient, and made him aware of the need for her admission. I will discuss patient with the hospitalist. Disposition is admit in guarded condition. History & Record Review Discussion w/independent historian: Patient and Family Additional record(s) reviewed:: Prior inpatient record, Prior ED visit and Priorlabs Lab Data Attestation: I reviewed the patient's lab results. Labs: Laboratory Results - last 24 hr 06/20/23 10:25 WBC 15.5 H RBC 1.55 L Hgb 4.6 L* Hct 15.3 L MCV 98.7 D MCH 29.7 MCHC 30.1 L RDW Std Deviation 52.9 H RDW Coeff of Laly 15.5 H Plt Count 459 H MPV 10.0 Immature Gran % (Auto) 0.800 Neut % (Auto) 71.4 H Lymph % (Auto) 17.6 L Robertson % (Auto) 7.9 Eos % (Auto) 1.8 Baso % (Auto) 0.5 Absolute Neuts (auto) 11.1 H Absolute Lymphs (auto) 2.72 Nucleated RBC % 0 Sodium 140 Potassium 3.4 L Chloride 103 Carbon Dioxide 32.0 Anion Gap 5 BUN 31 H Creatinine 0.58 Estim Creat Clear Calc 49.12 Est GFR (MDRD) Af Amer 132 Est GFR (MDRD) Non-Af 109 BUN/Creatinine Ratio 53.0 H Glucose 114 H Lactic Acid 2.2 H* Calcium 7.6 L Total Bilirubin 0.30 AST 13 L ALT 12 L Alkaline Phosphatase 54 Troponin I High Sens 8 Total Protein 5.0 L Albumin 2.0 L Globulin 3.0 Albumin/Globulin Ratio 0.7 L Radiography Diagnostic Testing: Clinical Impression(s) from Imaging Studies Chest X-Ray 06/20/23 10:46 IMPRESSION: Pleural parenchymal changes at the right lung base although the pleural effusion has improved as compared to prior study. Persistent bibasilar atelectasis and/or infiltrate persists. Electronically Signed: Michael Gaxiola MD at 11:07 EST , Management Discussion w/another healthcare provider: Hospitalist (Dr. Edis Mayo) and Health Education Teacher (Dr. Antunez, gastroenterology) Critical Care Time Critical Care Time: Yes Critical care time (excluding procedures): 30-74 minutes (32 minutes), Includingtime spent:, Discussing w/Patient &/or Family/Rat Breeder, Discussing w/Consultants, Arranging Admission or Transfer and Performing Direct Patient Care at Bedside Discharge Plan Dx/Rx/DC Orders Clinical Impression: Anemia requiring transfusions, Bleeding ulcer, Syncope Disposition Disposition: Acute Care Hospital [facility] What to do if you have Problems For any increased pain, shortness of breath, bleeding, nausea or vomiting, chestpain, or any unexpected problems, contact your Primary Care Provider. Call [facility] ([phone]) or report to the closest Emergency Room. Call 911 if necessary. 06/20/23 1120 <Electronically signed by Guido Oliveira MD> Cosigner Signature (if applicable): CC: Dr. Julio Draper MD ~ Signed [facility] Work Phone: Evaluation note* Diagnosis Bilateral impacted cerumen- Primary Impacted cerumen documented in this encounter [facility] note* Diagnosis Cough- Primary SOB (shortness of breath) Shortness of breath documented in this encounter [facility] note* Diagnosis Acute right-sided low back pain without sciatica- Primary Vertigo Dizziness and giddiness Post-nasal drip Postnasal drip Environmental allergies Other allergy, other than to medicinal agents COPD with asthma (HCC) Chronic obstructive asthma, unspecified documented in this encounter [facility] note* Diagnosis COVID-19- Primary Stage 3 severe COPD by GOLD classification ([facility]) documented in this encounter [facility] note* Diagnosis COVID-19 Stage 3 severe COPD by GOLD classification (HCC) documented in this encounter [facility] note* Diagnosis Stage 3 severe COPD by GOLD classification (HCC)- Primary Former smoker Personal history of tobacco use, presenting hazards to health COVID-19 Lung nodules Other nonspecific abnormal finding of lung field documented in this encounter [facility] note* Diagnosis COVID-19- Primary Stage 3 severe COPD by GOLD classification (HCC) documented in this encounter [facility] note* Diagnosis Chronic obstructive pulmonary disease, unspecified COPD type (HCC)- Primary documented in this encounter [facility] note* Diagnosis COPD with asthma (HCC)- Primary [...] diagnosis of hypertension documented in this encounter [facility] note* Diagnosis Lung nodules- Primary Other nonspecific abnormal finding of lung field Centrilobular emphysema (HCC) Other emphysema Former cigarette smoker Personal history of tobacco use, presenting hazards to health documented in this encounter [facility] note* Diagnosis Stage 3 severe COPD by GOLD classification (HCC)- Primary Lung nodules Other nonspecific abnormal finding of lung field Chronic respiratory failure with hypoxia (HCC) Chronic respiratory failure documented in this encounter [facility] note* Diagnosis Environmental allergies Other allergy, other than to medicinal agents [facility] Diagnosis Encounter for screening mammogram for breast cancer documented in this encounter [facility] note* Diagnosis Routine medical exam- Primary Routine [...] unspecified single disease [facility] Diagnosis COPD with exacerbation (HCC)- Primary Obstructive chronic bronchitis with exacerbation Abnormal breath sounds Abnormal chest sounds documented in this encounter [facility] note* Diagnosis COPD with exacerbation (HCC)- Primary Obstructive chronic bronchitis with exacerbation documented in this encounter [facility] noteNo assessment information availableWShelby [facility] Work Phone: evaluation note* Diagnosis Onset Date Resolution Status Acute bronchospasm acute Community acquired pneumonia acute Dyspnea on exertion acute Elevated serum creatinine ac curyung Fever and chills acute Hyperglycemia acute Leukocytosis acute Sinus tachycardia acute COPD exacerbation [facility] Work Phone: evaluation note* Diagnosis Pneumonia of left lower lobe due to infectious organism- Primary COPD, severe (HCC) Chronic airway obstruction, not elsewhere classified Chronic hypoxemic respiratory failure (HCC) Chronic [facility] Diagnosis Chronic respiratory failure with hypoxia (HCC)- Primary Chronic respiratory failure COPD with asthma (HCC) Chronic obstructive asthma, unspecified Environmental allergies Other allergy, other than to medicinal agents [facility] Diagnosis Chronic obstructive pulmonary disease, unspecified COPD type (HCC)- Primary documented in this encounter [facility] note* Diagnosis Centrilobular emphysema (HCC)- Primary Other emphysema Chronic hypoxemic respiratory failure (HCC) Chronic respiratory failure Former smoker Personal history of tobacco use, presenting hazards to health [facility] Diagnosis COVID-19 Lung nodules Other nonspecific abnormal finding of lung field [facility] Diagnosis Lung nodules Other nonspecific abnormal finding of lung field Centrilobular emphysema (HCC) Other emphysema Former cigarette smoker Personal history of tobacco use, presenting hazards to health [facility]* Diagnosis COPD with exacerbation (HCC)- Primary Obstructive chronic bronchitis with exacerbation Lung nodules Other nonspecific abnormal finding of lung field [facility] Diagnosis Onset Date Resolution Status Community acquired pneumonia of right lower lobe of lung acute Failure of outpatient treatment acute Lung nodules acute Parapneumonic effusion acute [id number] chronic Acute exacerbation of chroni c obstructive pulmonary disease (COPD) chronic [facility] Work Phone: Evaluation note* Diagnosis Onset Date Resolution Status Acute exacerbation of chroni c obstructive pulmonary disease (COPD) chronic [id number] resolved Community acquired pneumonia of right lower lobe of lung resolved Failure of outpatient treatment resolved GI bleed resolved Parapneumonic effusion resol zbigniew Pleural effusion, right reso lved Anemia requiring transfusions acute Bleeding ulcer acute Syncope acute [facility] Work Phone: Evaluation note* Diagnosis Onset Date Resolution Status [id number] resolved Acute exacerbation of chroni c obstructive pulmonary disease (COPD) resolved Community acquired pneumonia of right lower lobe of lung resolved Failure of outpatient treatment resolved GI bleed resolved Parapneumonic effusion resol zbigniew Pleural effusion, right reso lved Anemia requiring transfusions acute Bleeding ulcer acute Syncope acute [facility] Work Phone: Evaluation note* Diagnosis Onset Date Resolution Status [id number] resolved Acute exacerbation of chroni c obstructive pulmonary disease (COPD) resolved Community acquired pneumonia of right lower lobe of lung resolved Failure of outpatient treatment resolved GI bleed resolved Parapneumonic effusion resol zbigniew Pleural effusion, right reso lved Anemia requiring transfusions acute Bleeding ulcer acute Syncope acute Acute bronchospasm acute Dyspnea on exertion acute Elevated blood pressure read ing without diagnosis of hypertension acute Empyema of pleural space acu te Acute exacerbation of chroni c obstructive pulmonary disease chronic Chronic hypoxemic respiratory failure chronic Pleural effusion, right reso lved [facility] Work Phone: Evaluation note* Diagnosis Onset Date Resolution Status [id number] resolved Acute exacerbation of chroni c obstructive pulmonary disease (COPD) resolved Community acquired pneumonia of right lower lobe of lung resolved Failure of outpatient treatment resolved GI bleed resolved Parapneumonic effusion resol zbigniew Pleural effusion, right reso lved Anemia requiring transfusions acute Bleeding ulcer acute Syncope acute Acute bronchospasm acute EARNEST (acute kidney injury) ac curyung Anemia requiring transfusions acute Atrial fibrillation acute Dyspnea on exertion acute Elevated blood pressure read ing without diagnosis of hypertension acute Empyema of pleural space acu te Hx of ulcer disease acute Acute exacerbation of chroni c obstructive pulmonary disease chronic Chronic hypoxemic respiratory failure chronic COPD (chronic obstructive pulmonary disease) chronic Pleural effusion, right reso lved [facility] Work Phone: Evaluation note* Diagnosis Paroxysmal atrial fibrillation (HCC)- Primary Atrial fibrillation documented in this encounter [facility] note* Diagnosis Parapneumonic effusion- Primary Other specified forms of effusion, except tuberculous Chronic respiratory failure with hypoxia (HCC) Chronic respiratory failure Persistent pneumonia Pneumonia, organism unspecified Centrilobular emphysema (HCC) Other emphysema EARNEST (acute kidney injury) (HCC) Acute kidney failure, unspecified Hemodialysis status ([facility]) Renal dialysis status documented in this encounter [facility] note* Diagnosis Pneumonia due to infectious organism, unspecified laterality, unspecified part of lung- Primary ESRD (end stage renal disease) (HCC) End stage renal disease Malnutrition of mild degree (HCC) Malnutrition of mild degree Paroxysmal atrial fibrillation (HCC) Atrial fibrillation Chronic obstructive pulmonary disease with acute exacerbation (HCC) Obstructive chronic bronchitis with exacerbation Duodenal ulcer Duodenal ulcer, unspecified as acute or chronic, without hemorrhage, perforation, or obstruction NSTEMI (non-ST elevated myocardial infarction) ([facility]) Acute myocardial infarction, subendocardial infarction, episode of care unspecified Chronic respiratory failure with hypoxia (HCC) Chronic respiratory failure Anemia requiring transfusions Anemia, unspecified Impacted cerumen of both ears Impacted cerumen Hyperlipidemia, unspecified hyperlipidemia type documented in this encounter [facility] note* Diagnosis Encounter for screening mammogram for breast cancer [facility]* Diagnosis Coronary artery disease involving the [place] coronary artery of the [place] heart, unspecified whether angina present- Primary Environmental allergies Other allergy, other than to medicinal agents Primary hypertension Unspecified essential hypertension Duodenal ulcer Duodenal ulcer, unspecified as acute or chronic, without hemorrhage, perforation, or obstruction Anxiety about health [facility]* Diagnosis Chronic obstructive pulmonary disease with acute exacerbation (HCC)- Primary Obstructive chronic bronchitis with exacerbation Chronic respiratory failure with hypoxia (HCC) Chronic respiratory failure ESRD (end stage renal disease) (HCC) End stage renal disease History of GI bleed Personal history of other diseases of digestive system [facility] Lung nodules Other nonspecific abnormal finding of lung field Parapneumonic effusion Other specified forms of effusion, except tuberculous Persistent pneumonia Pneumonia, organism unspecified [facility] Diagnosis Centrilobular emphysema (HCC)- Primary Other emphysema Lung nodules Other nonspecific abnormal finding of lung field Chronic hypoxemic respiratory failure (HCC) Chronic respiratory failure Parapneumonic effusion Other specified forms of effusion, except tuberculous Former smoker Personal history of tobacco use, presenting hazards to health Hemodialysis status (HCC) Renal [facility] Diagnosis Routine medical exam- Primary Routine general medical examination at a health care facility Chronic obstructive pulmonary disease with acute exacerbation (HCC) Obstructive chronic bronchitis with exacerbation Chronic respiratory failure with hypoxia (HCC) Chronic respiratory failure ESRD (end stage renal disease) ([facility]) End stage renal disease Coagulation defect, unspecified ([facility]) Coronary artery disease involving the [place] coronary artery of the [place] heart without angina pectoris Essential tremor Essential and other specified forms of tremor Anemia requiring transfusions Anemia, unspecified Pleural effusion Unspecified pleural effusion [facility] Diagnosis Coronary artery disease involving the [place] coronary artery of the [place] heart, unspecified whether angina present Hyperlipidemia, unspecified hyperlipidemia type Anxiety about health Primary hypertension Unspecified essential hypertension Duodenal ulcer Duodenal ulcer, unspecified as acute or chronic, without hemorrhage, perforation, or obstruction Environmental allergies Other allergy, other than to medicinal agents [facility] Diagnosis AVM (arteriovenous malformation) of small bowel, acquired- Primary Angiodysplasia of intestine (without mention of hemorrhage) [facility] Diagnosis Hyperlipidemia, unspecified hyperlipidemia type- Primary COPD with asthma (HCC) Chronic obstructive asthma, unspecified Essential tremor Essential and other specified forms of tremor Need for influenza vaccination Need for prophylactic vaccination and inoculation against influenza Need for vaccination Need for prophylactic vaccination and inoculation against unspecified single disease Encounter for screening for osteoporosis Special screening for osteoporosis Asymptomatic postmenopausal status AVM (arteriovenous malformation) of small bowel, acquired Angiodysplasia of intestine (without mention of hemorrhage) [facility] Diagnosis Hyperlipidemia, unspecified hyperlipidemia type- Primary COPD with asthma (HCC) Chronic obstructive asthma, unspecified Essential tremor Essential and other specified forms of tremor Need for influenza vaccination Need for prophylactic vaccination and inoculation against influenza Need for vaccination Need for prophylactic vaccination and inoculation against unspecified single disease Encounter for screening for osteoporosis Special screening for osteoporosis Asymptomatic postmenopausal status Chronic obstructive pulmonary disease with acute exacerbation (HCC) Obstructive chronic bronchitis with exacerbation [facility]* Diagnosis Hyperlipidemia, unspecified hyperlipidemia type- Primary COPD with asthma (HCC) Chronic obstructive asthma, unspecified Essential tremor Essential and other specified forms of tremor Need for influenza vaccination Need for prophylactic vaccination and inoculation against influenza Need for vaccination Need for prophylactic vaccination and inoculation against unspecified single disease Encounter for screening for osteoporosis Special screening for osteoporosis Asymptomatic postmenopausal status Multiple duodenal ulcers Duodenitis with hemorrhage Parapneumonic effusion Other specified forms of effusion, except tuberculous [facility] Diagnosis Hyperlipidemia, unspecified hyperlipidemia type- Primary COPD with asthma (HCC) Chronic obstructive asthma, unspecified Essential tremor Essential and other specified forms of tremor Need for influenza vaccination Need for prophylactic vaccination and inoculation against influenza Need for vaccination Need for prophylactic vaccination and inoculation against unspecified single disease Encounter for screening for osteoporosis Special screening for osteoporosis Asymptomatic postmenopausal status Hyperlipidemia, unspecified hyperlipidemia type Primary hypertension Unspecified essential hypertension Environmental allergies Other allergy, other than to medicinal agents Duodenal ulcer Duodenal ulcer, unspecified as acute or chronic, without hemorrhage, perforation, or obstruction Coronary artery disease involving the [place] coronary artery of [place] heart, unspecified whether angina present Anxiety about health [facility] Diagnosis Hyperlipidemia, unspecified hyperlipidemia type- Primary COPD with asthma (HCC) Chronic obstructive asthma, unspecified Essential tremor Essential and other specified forms of tremor Need for influenza vaccination Need for prophylactic vaccination and inoculation against influenza Need for vaccination Need for prophylactic vaccination and inoculation against unspecified single disease Encounter for screening for osteoporosis Special screening for osteoporosis Asymptomatic postmenopausal status Pneumonia of left lower lobe due to infectious organism [facility] Hyperlipidemia, unspecified hyperlipidemia type- Primary COPD with asthma (HCC) Chronic obstructive asthma, unspecified Essential tremor Essential and other specified forms of tremor Need for influenza vaccination Need for prophylactic vaccination and inoculation against influenza Need for vaccination Need for prophylactic vaccination and inoculation against unspecified single disease Encounter for screening for osteoporosis Special screening for osteoporosis Asymptomatic postmenopausal status COPD with exacerbation (HCC) Obstructive chronic bronchitis with exacerbation Abnormal breath sounds Abnormal chest sounds [facility] Diagnosis Hyperlipidemia, unspecified hyperlipidemia type- Primary COPD with asthma (HCC) Chronic obstructive asthma, unspecified Essential tremor Essential and other specified forms of tremor Need for influenza vaccination Need for prophylactic vaccination and inoculation against influenza Need for vaccination Need for prophylactic vaccination and inoculation against unspecified single disease Encounter for screening for osteoporosis Special screening for osteoporosis Asymptomatic postmenopausal status Cough [facility] Cough SOB (shortness of breath) Shortness of breath Hyperlipidemia, unspecified hyperlipidemia type- Primary COPD with asthma (HCC) Chronic obstructive asthma, unspecified Essential tremor Essential and other specified forms of tremor Need for influenza vaccination Need for prophylactic vaccination and inoculation against influenza Need for vaccination Need for prophylactic vaccination and inoculation against unspecified single disease Encounter for screening for osteoporosis Special screening for osteoporosis Asymptomatic postmenopausal status [facility] Diagnosis Hyperlipidemia, unspecified hyperlipidemia type- Primary COPD with asthma (HCC) Chronic obstructive asthma, unspecified Essential tremor Essential and other specified forms of tremor Need for influenza vaccination Need for prophylactic vaccination and inoculation against influenza Need for vaccination Need for prophylactic vaccination and inoculation against unspecified single disease Encounter for screening for osteoporosis Special screening for osteoporosis Asymptomatic postmenopausal status Muscle spasm- Primary Spasm of muscle ESRD (end stage renal disease) ([facility]) End stage renal disease Primary hypertension Unspecified essential hypertension Coronary artery disease involving the [place] coronary artery of the [place] heart without angina pectoris Chronic obstructive pulmonary disease with acute exacerbation ([facility]) Obstructive chronic bronchitis with exacerbation [facility] Diagnosis Hyperlipidemia, unspecified hyperlipidemia type- Primary COPD with asthma (HCC) Chronic obstructive asthma, unspecified Essential tremor Essential and other specified forms of tremor Need for influenza vaccination Need for prophylactic vaccination and inoculation against influenza Need for vaccination Need for prophylactic vaccination and inoculation against unspecified single disease Encounter for screening for osteoporosis Special screening for osteoporosis Asymptomatic postmenopausal status Lung nodules Other nonspecific abnormal finding of lung field [facility] Hyperlipidemia, unspecified hyperlipidemia type- Primary COPD with asthma (HCC) Chronic obstructive asthma, unspecified Essential tremor Essential and other specified forms of tremor Need for influenza vaccination Need for prophylactic vaccination and inoculation against influenza Need for vaccination Need for prophylactic vaccination and inoculation against unspecified single disease Encounter for screening for osteoporosis Special screening for osteoporosis Asymptomatic postmenopausal status Muscle spasm- Primary Spasm of muscle Primary hypertension Unspecified essential hypertension ESRD (end stage renal disease) (HCC) End stage renal disease Chronic obstructive pulmonary disease with acute exacerbation (HCC) Obstructive chronic bronchitis with exacerbation Age-related osteoporosis without current pathological fracture Senile osteoporosis [facility] Hyperlipidemia, unspecified hyperlipidemia type- Primary COPD with asthma (HCC) Chronic obstructive asthma, unspecified Essential tremor Essential and other specified forms of tremor Need for influenza vaccination Need for prophylactic vaccination and inoculation against influenza Need for vaccination Need for prophylactic vaccination and inoculation against unspecified single disease Encounter for screening for osteoporosis Special screening for osteoporosis Asymptomatic postmenopausal status Ground glass opacity present on imaging of lung- Primary COPD, severe (HCC) Chronic airway obstruction, not elsewhere classified Chronic hypoxemic respiratory failure (HCC) Chronic respiratory failure Former smoker Personal history of tobacco use, presenting hazards to health ESRD needing dialysis ([facility]) End stage renal disease [facility] Diagnosis Onset Date Resolution Status Community acquired pneumonia of right lower lobe of lung acute Failure of outpatient treatment acute GI bleed acute Lung nodules acute Parapneumonic effusion acute Pleural effusion, right acut e [id number] chronic Acute exacerbation of chroni c obstructive pulmonary disease (COPD) [facility] Work Phone: Evaluation note* Diagnosis Hyperlipidemia, unspecified hyperlipidemia type- Primary COPD with asthma (HCC) Chronic obstructive asthma, unspecified Essential tremor Essential and other specified forms of tremor Need for influenza vaccination Need for prophylactic vaccination and inoculation against influenza Need for vaccination Need for prophylactic vaccination and inoculation against unspecified single disease Encounter for screening for osteoporosis Special screening for osteoporosis Asymptomatic postmenopausal status Coronary artery disease involving the [place] coronary artery of [place] heart, unspecified whether angina present Environmental allergies Other allergy, other than to medicinal agents Duodenal ulcer Duodenal ulcer, unspecified as acute or chronic, without hemorrhage, perforation, or obstruction [facility] Diagnosis Hyperlipidemia, unspecified hyperlipidemia type- Primary COPD with asthma (HCC) Chronic obstructive asthma, unspecified Essential tremor Essential and other specified forms of tremor Need for influenza vaccination Need for prophylactic vaccination and inoculation against influenza Need for vaccination Need for prophylactic vaccination and inoculation against unspecified single disease Encounter for screening for osteoporosis Special screening for osteoporosis Asymptomatic postmenopausal status Chronic obstructive pulmonary disease with acute exacerbation (HCC)- Primary Obstructive chronic bronchitis with exacerbation Chronic respiratory failure with hypoxia (HCC) Chronic respiratory failure Primary hypertension Unspecified essential hypertension Paroxysmal atrial fibrillation (HCC) Atrial fibrillation documented in this encounter [facility] note* Diagnosis Hyperlipidemia, unspecified hyperlipidemia type- Primary COPD with asthma (HCC) Chronic obstructive asthma, unspecified Essential tremor Essential and other specified forms of tremor Need for influenza vaccination Need for prophylactic vaccination and inoculation against influenza Need for vaccination Need for prophylactic vaccination and inoculation against unspecified single disease Encounter for screening for osteoporosis Special screening for osteoporosis Asymptomatic postmenopausal status Chronic obstructive pulmonary disease with acute exacerbation (HCC)- Primary Obstructive chronic bronchitis with exacerbation Pneumonia due to infectious organism, unspecified laterality, unspecified part of lung Chronic respiratory failure with hypoxia (HCC) Chronic respiratory failure Lung nodule Solitary pulmonary nodule ESRD (end stage renal disease) (HCC) End stage renal disease [facility] Diagnosis Hyperlipidemia, unspecified hyperlipidemia type- Primary COPD with asthma (HCC) Chronic obstructive asthma, unspecified Essential tremor Essential and other specified forms of tremor Need for influenza vaccination Need for prophylactic vaccination and inoculation against influenza Need for vaccination Need for prophylactic vaccination and inoculation against unspecified single disease Encounter for screening for osteoporosis Special screening for osteoporosis Asymptomatic postmenopausal status Sepsis, due to unspecified organism, unspecified whether acute organ dysfunction present (HCC)- Primary Pneumonia of right lower lobe due to infectious organism Chronic obstructive pulmonary disease with acute exacerbation (HCC) Obstructive chronic bronchitis with exacerbation Chronic respiratory failure with hypoxia (HCC) Chronic respiratory failure ESRD (end stage renal disease) ([facility]) End stage renal disease [facility]* Diagnosis Hyperlipidemia, unspecified hyperlipidemia type- Primary COPD with asthma (HCC) Chronic obstructive asthma, unspecified Essential tremor Essential and other specified forms of tremor Need for influenza vaccination Need for prophylactic vaccination and inoculation against influenza Need for vaccination Need for prophylactic vaccination and inoculation against unspecified single disease Encounter for screening for osteoporosis Special screening for osteoporosis Asymptomatic postmenopausal status Chronic obstructive pulmonary disease with acute exacerbation (HCC)- Primary Obstructive chronic bronchitis with exacerbation Chronic respiratory failure with hypoxia (HCC) Chronic respiratory failure Lung nodule Solitary pulmonary nodule Malnutrition of mild degree (HCC) Malnutrition of mild degree ESRD (end stage renal disease) ([facility]) End stage renal disease [facility] Diagnosis Hyperlipidemia, unspecified hyperlipidemia type- Primary COPD with asthma (HCC) Chronic obstructive asthma, unspecified Essential tremor Essential and other specified forms of tremor Need for influenza vaccination Need for prophylactic vaccination and inoculation against influenza Need for vaccination Need for prophylactic vaccination and inoculation against unspecified single disease Encounter for screening for osteoporosis Special screening for osteoporosis Asymptomatic postmenopausal status Age-related osteoporosis without current pathological fracture Senile osteoporosis [facility]* Diagnosis Hyperlipidemia, unspecified hyperlipidemia type- Primary COPD with asthma (HCC) Chronic obstructive asthma, unspecified Essential tremor Essential and other specified forms of tremor Need for influenza vaccination Need for prophylactic vaccination and inoculation against influenza Need for vaccination Need for prophylactic vaccination and inoculation against unspecified single disease Encounter for screening for osteoporosis Special screening for osteoporosis Asymptomatic postmenopausal status COPD, severe (HCC)- Primary Chronic airway obstruction, not elsewhere classified Chronic hypoxemic respiratory failure (HCC) Chronic respiratory failure Ground glass opacity present on imaging of lung [facility]* Diagnosis Hyperlipidemia, unspecified hyperlipidemia type- Primary COPD with asthma (HCC) Chronic obstructive asthma, unspecified Essential tremor Essential and other specified forms of tremor Need for influenza vaccination Need for prophylactic vaccination and inoculation against influenza Need for vaccination Need for prophylactic vaccination and inoculation against unspecified single disease Encounter for screening for osteoporosis Special screening for osteoporosis Asymptomatic postmenopausal status Encounter for screening mammogram for breast cancer [facility]* Diagnosis Hyperlipidemia, unspecified hyperlipidemia type- Primary COPD with asthma (HCC) Chronic obstructive asthma, unspecified Essential tremor Essential and other specified forms of tremor Need for influenza vaccination Need for prophylactic vaccination and inoculation against influenza Need for vaccination Need for prophylactic vaccination and inoculation against unspecified single disease Encounter for screening for osteoporosis Special screening for osteoporosis Asymptomatic postmenopausal status Acute pain of right shoulder- Primary Chronic obstructive pulmonary disease with acute exacerbation (HCC) Obstructive chronic bronchitis with exacerbation documented in this encounter [facility] note* Diagnosis Hyperlipidemia, unspecified hyperlipidemia type- Primary COPD with asthma (HCC) Chronic obstructive asthma, unspecified Essential tremor Essential and other specified forms of tremor Need for influenza vaccination Need for prophylactic vaccination and inoculation against influenza Need for vaccination Need for prophylactic vaccination and inoculation against unspecified single disease Encounter for screening for osteoporosis Special screening for osteoporosis Asymptomatic postmenopausal status Chronic obstructive pulmonary disease with acute exacerbation (HCC)- Primary Obstructive chronic bronchitis with exacerbation History of pneumonia Personal history of pneumonia (recurrent) [facility] Diagnosis Hyperlipidemia, unspecified hyperlipidemia type- Primary COPD with asthma (HCC) Chronic obstructive asthma, unspecified Essential tremor Essential and other specified forms of tremor Need for influenza vaccination Need for prophylactic vaccination and inoculation against influenza Need for vaccination Need for prophylactic vaccination and inoculation against unspecified single disease Encounter for screening for osteoporosis Special screening for osteoporosis Asymptomatic postmenopausal status Pneumonia of right lower lobe due to infectious organism [facility] Diagnosis Hyperlipidemia, unspecified hyperlipidemia type- Primary COPD with asthma (HCC) Chronic obstructive asthma, unspecified Essential tremor Essential and other specified forms of tremor Need for influenza vaccination Need for prophylactic vaccination and inoculation against influenza Need for vaccination Need for prophylactic vaccination and inoculation against unspecified single disease Encounter for screening for osteoporosis Special screening for osteoporosis Asymptomatic postmenopausal status Ground glass opacity present on imaging of lung [facility] Diagnosis Hyperlipidemia, unspecified hyperlipidemia type- Primary COPD with asthma (HCC) Chronic obstructive asthma, unspecified Essential tremor Essential and other specified forms of tremor Need for influenza vaccination Need for prophylactic vaccination and inoculation against influenza Need for vaccination Need for prophylactic vaccination and inoculation against unspecified single disease Encounter for screening for osteoporosis Special screening for osteoporosis Asymptomatic postmenopausal status Primary hypertension- Primary Unspecified essential hypertension Chronic obstructive pulmonary disease with acute exacerbation (HCC) Obstructive chronic bronchitis with exacerbation Coronary artery disease involving the [place] coronary artery of [place] heart without angina pectoris Paroxysmal atrial fibrillation (HCC) Atrial fibrillation documented in this encounter [facility] note* Diagnosis Hyperlipidemia, unspecified hyperlipidemia type- Primary COPD with asthma (HCC) Chronic obstructive asthma, unspecified Essential tremor Essential and other specified forms of tremor Need for influenza vaccination Need for prophylactic vaccination and inoculation against influenza Need for vaccination Need for prophylactic vaccination and inoculation against unspecified single disease Encounter for screening for osteoporosis Special screening for osteoporosis Asymptomatic postmenopausal status COPD, severe (HCC)- Primary Chronic airway obstruction, not elsewhere classified Ground glass opacity present on imaging of lung Chronic hypoxemic respiratory failure (HCC) Chronic respiratory failure [facility]* Diagnosis Hyperlipidemia, unspecified hyperlipidemia type- Primary COPD with asthma (HCC) Chronic obstructive asthma, unspecified Essential tremor Essential and other specified forms of tremor Need for influenza vaccination Need for prophylactic vaccination and inoculation against influenza Need for vaccination Need for prophylactic vaccination and inoculation against unspecified single disease Encounter for screening for osteoporosis Special screening for osteoporosis Asymptomatic postmenopausal status Ground glass opacity present on imaging of lung- Primary Lung nodules Other nonspecific abnormal finding of lung field Former smoker Personal history of tobacco use, presenting hazards to health documented in this encounter [facility] Discharge instructions Additional Instructions X-ray right shoulder prosthesis with no hardware malfunction noted. Take pain medicine as prescribed. Follow-up with [facility] with your doctors.[facility] Work Phone: Reason for referral (narrative)* Diagnostic Procedure Only (Routine) - Authorized Specialty Diagnoses / Procedures Referred By Contac t Referred To Contact [facility] Diagnoses COVID-19 Stage 3 severe COPD by GOLD classification (HCC) Procedures OXIMETRY WITH AMBULATION NONINVASIVE EAR/PULSE OXIMETRY MULTIPLE ISIDRO Luna Swartz PA-C [address] [address] Res[facility] [place] [address] [place] [id number] Referral ID Status Reason Start Date Expiration Date Visits Requested Visits Authorized [id number] Authorized Financial Clearance Not Required 01/21/2022 07/03/2022 1 1 [facility] for referral (narrative)* Diagnostic Procedure Only (Routine) - Pending Review Specialty Diagnoses / Procedures Referred By Contac t Referred To Contact BR IMAGING Diagnoses Encounter for screening mammogram for breast cancer Procedures AISLINN SCREENING SCREENING MAMMOGRAPHY BI 2-VIEW BREAST INC CAD Julio Draper MD [address] [place] [address] [facility] [address] [place] [phone] Referral ID Status Reason Start Date Expiration Date Visits Requested Visits Authorized [id number] Pending Review Auto-Generat ed Referral 10/06/2022 11/05/2023 1 1 T [facility] for referral (narrative)* Diagnostic Procedure Only (Routine) - Closed Specialty Diagnoses / Procedures Referred By Contac t Referred To Contact CT IMAGING Diagnoses COVID-[address] CHEST WO IVCON DIAGNOSTIC COMPUTED TOMOGRAPHY THORAX W/O CNTRST Luna Swartz PA-C [address] [place] [address] [place] [address] Referral ID Status Reason Start Date Expiration Date V isits Requested Visits Authorized [id number] Closed Auto-Generate d Referral 05/25/2022 07/03/2022 1 1 [facility] for referral (narrative)* Diagnostic Procedure Only (Routine) - Pending Review Specialty Diagnoses / Procedures Referred By Contac t Referred To Contact MOLECULAR & FUNCTIONAL IMAGING Diagnoses Lung nodules Procedures NM PET/CT SKULL-THIGH INITIAL PET IMAGING CT ATTENUATION SKULL BASE MID-THIGH Luna Swartz PA-C [address] [place] [address] Molecular & Functional Imaging [address] [id number] Referral ID Status Reason Start Date Expiration Date Visits Requested Visits Authorized [id number] Pending Review Auto-Generat ed Referral 3 06/28/2024 1 1 [facility] for referral (narrative)* Diagnostic Procedure Only (Routine) - Pending Review Specialty Diagnoses / Procedures Referred By Contac t Referred To Contact BR IMAG[facility] Diagnoses Encounter for screening mammogram for breast cancer Procedures AISLINN SCREENING SCREENING MAMMOGRAPHY BI 2-VIEW BREAST INC CAD Julio Draper MD [address] [place] [address] [facility] [address] [place] [phone] Referral ID Status Reason Start Date Expiration Date Visits Requested Visits Authorized [id number] Pending Review Auto-Generat ed Referral 09/07/2023 10/06/2024 1 1 [facility] for referral (narrative)* Outpatient Procedure (Routine) - New Request Specialty Diagnoses / Procedures Referred By Contac t Referred To Contact [facility] Diagnoses AVM (arteriovenous malformation) of small bowel, acquired Procedures ENTEROSCOPY ENTEROSC >2ND PRTN W/ILEUM W/WO COLLJ SPEC SPX Ryan Tafoya MD [address] [place] [address] [facility] [place] [address] [place] [address] Referral ID Status Reason Start Date Expiration Date Visits Requested Visits Authorized [id number] New Request Auto-Generat ed Referral 02/09/2024 02/08/2025 1 1 T [facility] for referral (narrative)* Outpatient Procedure (Routine) - Closed Specialty Diagnoses / Procedures Referred By Contac t Referred To Contact [facility] Diagnoses AVM (arteriovenous malformation) of small bowel, acquired Procedures ENTEROSCOPY ENTEROSC >2ND PRTN W/ILEUM W/WO COLLJ SPEC SPX Ryan Tafoya MD [address] [id number] [place] [address] Referral ID Status Reason Start Date Expiration Date V isits Requested Visits Authorized [id number] Closed Auto-Generate d Referral 02/09/2024 02/08/2025 1 1 [facility] for referral (narrative)* Diagnostic Procedure Only (Routine) - Authorized Specialty Diagnoses / Procedures Referred By Contac t Referred To Contact XR IMAGING Diagnoses Age-related osteoporosis without current pathological fracture Procedures DXA-AXIAL SKELETON DXA BONE DENSITY STUDY 1/> SITES AXIAL Julio Hamilton MD [facility] [place] [address] Xr Imaging [id number] Referral ID Status Reason Start Date Expiration Date Visits Requested Visits Authorized [id number] Authorized Auto-Generat ed Referral 06/14/2025 1 1 [facility] for referral (narrative)No reason for referral information available[facility] Work Phone: Reason for visit Narrative* Outpatient Procedure (Routine) - Closed Specialty Diagnoses / Procedures Referred By Contac t Referred To Contact [facility] Diagnoses AVM (arteriovenous malformation) of small bowel, acquired Procedures ENTEROSCOPY ENTEROSC >2ND PRTN W/ILEUM W/WO COLLJ SPEC SPX Ryan Tafoya MD [address] [place] [address] [facility] [place] [address] [place] [address] Referral ID Status Reason Start Date Expiration Date V isits Requested Visits Authorized [id number] Closed Auto-Generate d Referral 02/09/2024 02/08/2025 1 1 [facility] for visit Narrative* Diagnostic Procedure Only (Routine) - Closed Specialty Diagnoses / Procedures Referred By Contmichelet t Referred To Contact Radiology / [facility] Diagnoses Chronic obstructive pulmonary disease with (acute) exacerbation (HCC) ec lobby Procedures RADIOLOGIC EXAM CHEST 2 VIEWS XR CHEST Julio Draper MD [address] [place] [address] [facility] [address] [place] [address] Referral ID Status Reason Start Date Expiration Date Visits Re quested Visits Authorized [id number] Closed 10/31/2023 07/03/2024 1 1 [facility] for visit Narrative* Diagnostic Procedure Only (Routine) - Closed Specialty Diagnoses / Procedures Referred By Bobby t Referred To Contact Radiology / 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 [address] [place] [address] Referral ID Status Reason Start Date Expiration Date Visits Re quested Visits Authorized [id number] Closed 04/21/2021 07/03/2021 1 1 [facility] for visit Narrative* Diagnostic Procedure Only (Routine) - Closed Specialty Diagnoses / Procedures Referred By Bobby t Referred To Contact XR IMAGING Diagnoses Age-related osteoporosis without current pathological fracture Procedures DXA-AXIAL SKELETON DXA BONE DENSITY STUDY 1/> SITES AXIAL SKEL Julio Draper MD [address] [place] [address] Phone: tel: fax: [place] [address] Referral ID Status Reason Start Date Expiration Date V isits Requested Visits Authorized [id number] Closed Auto-Generate d Referral 05/15/2024 06/14/2025 1 1 [facility] Summary Purpose Family History No Family History Records Found Relationship Condition Age at Onset Recorded Date/T nathalia Unknown Family History?- Unknown March 082014 8:08am Family History?- Unknown May 232015 11:45pm Relationship Condition Age at Onset Recorded Date/T nathalia Unknown Family History?- Unknown March 082014 7:08am Family History?- Unknown May 232015 10:45pm Relationship Condition Age at Onset Recorded Date/T nathalia Not Specified Adopted Unknown Advance Directives No Advanced Directives Records FoundDocuments on File Type Date Recorded 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 Advance Directive(s) Advance Directive(s) 09/08/2015 9:46 AM Advance Directive(s) 09/04/2015 12:26 PM Advance Directive(s) 08/18/2015 4:01 PM Documents on File Type Date Recorded 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 Advance Directive(s) Advance Directive(s) 09/08/2015 9:46 AM Advance Directive(s) 09/04/2015 12:26 PM Advance Directive(s) 08/18/2015 4:01 PM Advance Directive Response Recorded Date/ Time Advance Directives No May 4:48pm Living Will No November 28, 2022 1 2:56am Power of Spar Finisher No November 28, 2022 12:56am Advance Directive Response Recorded Date/ Time Advance Directives No May 4:48pm Living Will No November 30, 2022 1 1:43am Power of Spar Finisher No November 30, 2022 11:43am Advance Directive Response Recorded Date/ Time Advance Directives No May 4:48pm Living Will No November 30, 2022 1 :28pm Power of Spar Finisher No November 30, 2022 1:28pm Advance Directive Response Recorded Date/ Time Advance Directives No May 3:48pm Living Will No June 02, 2 023 9:06am Power of Spar Finisher No June 02, 2023 9:06am Advance Directive Response Recorded Date/ Time Advance Directives No May 3:48pm Living Will No June 02, 2 023 11:59am Power of Spar Finisher No June 02, 2023 11:59am Advance Directive Response Recorded Date/ Time Advance Directives No May 3:48pm Living Will No June 20, 2 023 11:35am Power of Spar Finisher No June 20, 2023 11:35am Advance Directive Response Recorded Date/ Time Advance Directives No May 3:48pm Living Will No June 20, 2 023 12:12pm Power of Spar Finisher No June 20, 2023 12:12pm Advance Directive Response Recorded Date/ Time Advance Directives No May 3:48pm Living Will No July 05 4 4:21pm Power of Spar Finisher No July 05, 2 024 4:21pm Advance Directive Response Recorded Date/ Time Advance Directives No May 3:48pm Living Will No July 07 4 9:02am Power of Spar Finisher No July 07, 2 024 9:02am Advance Directive Response Recorded Date/ Time Advance Directives No May 3:48pm Living Will No July 07 4 6:04pm Power of Spar Finisher No July 07, 2 024 6:04pm Latest Code Status on File Code Status Date Activated Date Inactivated Comments Full Code 07/25/2023 6:58 AM 08/03/2023 10:59 PM Question Answer Comments Full Code Order Discussed With: Patient Code Status History Code Status Date Activated Date Inactivated Comments Full Code 07/10/2023 12:19 PM 07/22/2023 10:13 PM Question Answer Comments Full Code Order Discussed With: Patient Latest Code Status on File Code Status Date Activated Date Inactivated Comments Full Code 07/25/2023 6:58 AM 08/03/2023 10:59 PM Question Answer Comments Full Code Order Discussed With: Patient Code Status History Code Status Date Activated Date Inactivated Comments Full Code 07/10/2023 12:19 PM 07/22/2023 10:13 PM Question Answer Comments Full Code Order Discussed With: Patient Date Activated Date Inactivated Comments 07/25/2023 6:58 AM 08/03/2023 10:59 PM Question Answer Comments Full Code Order Discussed With: Patient Date Activated Date Inactivated Comments 07/10/2023 12:19 PM 07/22/2023 10:13 PM Question Answer Comments Full Code Order Discussed With: Patient Date Activated Date Inactivated Comments 07/25/2023 6:58 AM 08/03/2023 10:59 PM Question Answer Comments Full Code Order Discussed With: Patient Date Activated Date Inactivated Comments 07/10/2023 12:19 PM 07/22/2023 10:13 PM Question Answer Comments Full Code Order Discussed With: Patient Advance Directive Response Recorded Date/ Time Living Will No April 09 3:20pm Power of Spar Finisher No April 09 3:20pm Living Will Yes March 19, 2024 9:45am Power of Spar Finisher Yes March 9:45am Living Will Yes May 22 024 11:23am Power of Spar Finisher Yes May 22, 2024 11:23am Name of Medical Power of Spar Finisher VANESSA CARDENAS May 22, 2024 11:23am Living Will No July 08 7:52am Power of Spar Finisher No July 08 7:52am Living Will No August 06 9:55am Power of Spar Finisher No August 06, 2024 9:55am Living Will No July 03 1:53pm Power of Spar Finisher No July 03, 2024 1:53pm Living Will No September 06, 2024 8:26am Power of Spar Finisher No September 06 8:26am Advance Directives No September 06 8:26am Living Will No July 23 2:32pm Power of Spar Finisher No July 23, 2024 2:32pm Living Will No August 02 11:55pm Power of Spar Finisher No August 02, 2024 11:55pm Living Will No September 17, 2024 6:45pm Power of Spar Finisher Yes September 17 6:45pm Name of Medical Power of Spar Finisher September 17, 2024 6:45pm Advance Directive Response Recorded Date/ Time Living Will No July 08 7:52am Do you have a Healthcare Power of Spar Finisher? No July 08, 2024 7:52am Living Will No August 06 9:55am Do you have a Healthcare Power of Spar Finisher? No August 06, 2024 9:55am Living Will No September 06, 2024 8:26am Do you have a Healthcare Power of Spar Finisher? No September 06, 2024 8:26am Advance Directives No September 06 8:26am Living Will No July 23 2:32pm Do you have a Healthcare Power of Spar Finisher? No July 23, 2024 2:32pm Living Will No August 02 11:55pm Do you have a Healthcare Power of Spar Finisher? No August 02, 2024 11:55pm Living Will No September 17, 2024 6:45pm Do you have a Healthcare Power of Spar Finisher? Yes September 17, 2024 6:45pm Name of Medical Power of Spar Finisher September 17, 2024 6:45pm Do you have a Healthcare Power of Spar Finisher? No October 31, 2024 10:04am Advance Directive Response Recorded Date/ Time Living Will No September 06, 2024 8:26am Do you have a Healthcare Power of Spar Finisher? No September 06, 2024 8:26am Living Will No September 17, 2024 6:45pm Do you have a Healthcare Power of Spar Finisher? Yes September 17, 2024 6:45pm Name of Medical Power of Spar Finisher September 17, 2024 6:45pm Do you have a Healthcare Power of Spar Finisher? No October 31, 2024 10:04am Living Will No January 03, 2025 1 0:02am Do you have a Healthcare Power of Spar Finisher? No January 03, 2025 10:02am Advance Directives No January 03 10:02am Advance Directive Response Recorded Date/ Time Do you have a Healthcare Power of Spar Finisher? No October 31, 2024 10:04am Living Will No January 03, 2025 1 0:02am Do you have a Healthcare Power of Spar Finisher? No January 03, 2025 10:02am Advance Directives No January 03 10:02am Reason for Referral Specialty Diagnoses / Procedures Referred By Bobby padron Referred To Contact Pulmonary and Critical Care Medicine Diagnoses COPD with asthma (HCC) Procedures CONSULT TO PULM/CRITICAL CARE OFFICE/OUTPATIENT [facility] 60-74 MINUTES Reema Jiménez APRN.SENIOR MARKETING SPECIALIST [address] [place] [address] Referral ID Status Reason Start Date Expiration Date Visits Requested Visits Authorized [id number] Pending Review PCP Requested Referral 11/12/2021 11/12/2022 1 1 Specialty Diagnoses / Procedures Referred By Contac t Referred To Contact CT IMAGING Diagnoses COVID-[address] CHEST WO IVCON DIAGNOSTIC COMPUTED TOMOGRAPHY THORAX W/O CNTRST Luna Swartz PA-C [address] [address] [address] Imaging Referral ID Status Reason Start Date Expiration Date Visits Requested Visits Authorized [id number] Pending Review Auto-Generat ed Referral 05/04/2022 02/20/2023 1 1 Specialty Diagnoses / Procedures Referred By Contac t Referred To Contact CT IMAGING Diagnoses Lung nodules Centrilobular emphysema (HCC) Former cigarette smoker Procedures CT CHEST WO IVCON DIAGNOSTIC COMPUTED TOMOGRAPHY THORAX W/O Magali Francis MD [address] [facility] [place] [address] Ct Imaging Referral ID Status Reason Start Date Expiration Date Visits Requested Visits Authorized [id number] Authorized Auto-Generat ed Referral 06/30/2023 1 1 Specialty Diagnoses / Procedures Referred By Contac t Referred To Contact Gynecology Diagnoses Screening for cervical cancer Procedures CONSULT TO GYNECOLOGY OFFICE/OUTPATIENT [facility] MDM 60-74 MINUTES Julio Draper MD [address] [place] [address] Referral ID Status Reason Start Date Expiration Date Visits Requested Visits Authorized [id number] Pending Review PCP Requested Referral Auto-Generate d Referral 11/05/2022 11/05/2023 1 1 Specialty Diagnoses / Procedures Referred By Contac t Referred To Contact CT IMAGING Diagnoses Parapneumonic effusion Persistent pneumonia Procedures CT CHEST WO IVCON DIAGNOSTIC COMPUTED TOMOGRAPHY THORAX W/O Magali Francis MD [address] [facility] [address] [place] [address] Referral ID Status Reason Start Date Expiration Date Visits Requested Visits Authorized [id number] Pending Review Auto-Generat ed Referral 10/24/2023 09/14/2024 1 1 Specialty Diagnoses / Procedures Referred By Contac t Referred To Contact Ent - Otolaryngology Diagnoses Impacted cerumen of both ears Procedures CONSULT TO ENT Julio Draper MD [address] [place] [address] Referral ID Status Reason Start Date Expiration Date Visits Requested Visits Authorized [id number] Ref Not Required PCP Requested Referral 08/25/2023 08/24/2024 1 1 Specialty Diagnoses / Procedures Referred By Contac t Referred To Contact Cardiology Diagnoses Paroxysmal atrial fibrillation (HCC) NSTEMI (non-ST elevated myocardial infarction) (HCC) Procedures CONSULT TO CARDIOLOGY Julio Draper MD [address] [place] [address] Referral ID Status Reason Start Date Expiration Date Visits Requested Visits Authorized [id number] Ref Not Required PCP Requested Referral 08/25/2023 08/24/2024 1 1 Specialty Diagnoses / Procedures Referred By Contac t Referred To Contact Nephrology Diagnoses ESRD (end stage renal disease) (HCC) Procedures CONSULT TO NEPHROLOGY Julio Draper MD [address] [place] [address] Referral ID Status Reason Start Date Expiration Date Visits Requested Visits Authorized [id number] Ref Not Required PCP Requested Referral 08/25/2023 08/24/2024 1 1 Specialty Diagnoses / Procedures Referred By Contac t Referred To Contact CT IMAGING Diagnoses Lung nodules Procedures CT CHEST WO IVCON DIAGNOSTIC COMPUTED TOMOGRAPHY THORAX W/O CNTRST Luna Swartz PA-C [address] [place] [address] [place] [address] Referral ID Status Reason Start Date Expiration Date Visits Requested Visits Authorized [id number] Pending Review Auto-Generat ed Referral 05/10/2024 12/07/2024 1 1 Specialty Diagnoses / Procedures Referred By Contac t Referred To Contact CT IMAGING Diagnoses Ground glass opacity present on imaging of lung Procedures CT CHEST WO IVCON DIAGNOSTIC COMPUTED TOMOGRAPHY THORAX W/O CNTRST Magali Nieves MD [address] [place] [address] [place] [address] Referral ID Status Reason Start Date Expiration Date Visits Requested Visits Authorized [id number] Authorized Auto-Generat ed Referral 11/05/2024 07/07/2025 1 1 Chief Complaint and Reason for Visit Chief Complaint chest pain Chief Complaint chest pain LLL PNEUMONIA Reason for Visit Acute bronchospasm Community acquired pneumonia Dyspnea on exertion Elevated serum creatinine Fever and chills Hyperglycemia Leukocytosis Sinus tachycardia COPD exacerbation Chief Complaint chest pain LLL PNEUMONIA LLL PNEUMONIA LLL PNEUMONIA Reason for Visit Acute bronchospasm Community acquired pneumonia Dyspnea on exertion Elevated serum creatinine Fever and chills Hyperglycemia Leukocytosis Sinus tachycardia COPD exacerbation Chief Complaint ACUTE HYPOXIC RESPIR ATORY FAILURE DUE TO COMMUNITY Reason for Visit Community acquired p neumonia of right lower lobe of lung Failure of outpatient treatment Lung nodules Parapneumonic effusion [id number] Acute exacerbation of chronic obstructive pulmonary disease (COPD) Chief Complaint ACUTE HYPOXIC RESPIR ATORY FAILURE DUE TO COMMUNITY ACUTE HYPOXIC RESPIRATORY FAILURE DUE TO COMMUNITY ACUTE HYPOXIC RESPIRATORY FAILURE DUE TO COMMUNITY ACUTE HYPOXIC RESPIRATORY FAILURE DUE TO COMMUNITY ACUTE HYPOXIC RESPIRATORY FAILURE DUE TO COMMUNITY ACUTE HYPOXIC RESPIRATORY FAILURE DUE TO COMMUNITY ACUTE HYPOXIC RESPIRATORY FAILURE DUE TO COMMUNITY ACUTE HYPOXIC RESPIRATORY FAILURE DUE TO COMMUNITY Reason for Visit Community acquired p neumonia of right lower lobe of lung Failure of outpatient treatment Lung nodules Parapneumonic effusion [id number] Acute exacerbation of chronic obstructive pulmonary disease (COPD) Chief Complaint ACUTE HYPOXIC RESPIR ATORY FAILURE DUE TO COMMUNITY ACUTE HYPOXIC RESPIRATORY FAILURE DUE TO COMMUNITY ACUTE HYPOXIC RESPIRATORY FAILURE DUE TO COMMUNITY ACUTE HYPOXIC RESPIRATORY FAILURE DUE TO COMMUNITY ACUTE HYPOXIC RESPIRATORY FAILURE DUE TO COMMUNITY Atrial fibrillation ACUTE HYPOXIC RESPIRATORY FAILURE DUE TO COMMUNITY ACUTE HYPOXIC RESPIRATORY FAILURE DUE TO COMMUNITY ACUTE HYPOXIC RESPIRATORY FAILURE DUE TO COMMUNITY ACUTE HYPOXIC RESPIRATORY FAILURE DUE TO COMMUNITY ACUTE HYPOXIC RESPIRATORY FAILURE DUE TO COMMUNITY ACUTE HYPOXIC RESPIRATORY FAILURE DUE TO COMMUNITY ACUTE HYPOXIC RESPIRATORY FAILURE DUE TO COMMUNITY ACUTE HYPOXIC RESPIRATORY FAILURE DUE TO COMMUNITY ACUTE HYPOXIC RESPIRATORY FAILURE DUE TO COMMUNITY ACUTE HYPOXIC RESPIRATORY FAILURE DUE TO COMMUNITY ACUTE HYPOXIC RESPIRATORY FAILURE DUE TO COMMUNITY AM EKG ACUTE HYPOXIC RESPIRATORY FAILURE DUE TO COMMUNITY ACUTE HYPOXIC RESPIRATORY FAILURE DUE TO COMMUNITY ACUTE HYPOXIC RESPIRATORY FAILURE DUE TO COMMUNITY ACUTE HYPOXIC RESPIRATORY FAILURE DUE TO COMMUNITY ACUTE HYPOXIC RESPIRATORY FAILURE DUE TO COMMUNITY ACUTE HYPOXIC RESPIRATORY FAILURE DUE TO COMMUNITY ACUTE HYPOXIC RESPIRATORY FAILURE DUE TO COMMUNITY ACUTE HYPOXIC RESPIRATORY FAILURE DUE TO COMMUNITY ACUTE HYPOXIC RESPIRATORY FAILURE DUE TO COMMUNITY ACUTE HYPOXIC RESPIRATORY FAILURE DUE TO COMMUNITY ACUTE HYPOXIC RESPIRATORY FAILURE DUE TO COMMUNITY ACUTE HYPOXIC RESPIRATORY FAILURE DUE TO COMMUNITY ACUTE HYPOXIC RESPIRATORY FAILURE DUE TO COMMUNITY ACUTE GI BLEED Reason for Visit Acute exacerbation o f chronic obstructive pulmonary disease (COPD) [id number] Community acquired pneumonia of right lower lobe of lung Failure of outpatient treatment GI bleed Parapneumonic effusion Pleural effusion, right Anemia requiring transfusions Bleeding ulcer Syncope Chief Complaint ACUTE HYPOXIC RESPIR ATORY FAILURE DUE TO COMMUNITY ACUTE HYPOXIC RESPIRATORY FAILURE DUE TO COMMUNITY ACUTE HYPOXIC RESPIRATORY FAILURE DUE TO [facility] ACUTE HYPOXIC RESPIRATORY FAILURE DUE TO [facility] ACUTE HYPOXIC RESPIRATORY FAILURE DUE TO [facility] Atrial fibrillation ACUTE HYPOXIC RESPIRATORY FAILURE DUE TO [facility] ACUTE HYPOXIC RESPIRATORY FAILURE DUE TO [facility] ACUTE HYPOXIC RESPIRATORY FAILURE DUE TO [facility] ACUTE HYPOXIC RESPIRATORY FAILURE DUE TO [facility] ACUTE HYPOXIC RESPIRATORY FAILURE DUE TO [facility] ACUTE HYPOXIC RESPIRATORY FAILURE DUE TO [facility] ACUTE HYPOXIC RESPIRATORY FAILURE DUE TO [facility] ACUTE HYPOXIC RESPIRATORY FAILURE DUE TO COMMUNITY ACUTE HYPOXIC RESPIRATORY FAILURE DUE TO COMMUNITY ACUTE HYPOXIC RESPIRATORY FAILURE DUE TO COMMUNITY ACUTE HYPOXIC RESPIRATORY FAILURE DUE TO [facility] AM EKG ACUTE HYPOXIC RESPIRATORY FAILURE DUE TO [facility] ACUTE HYPOXIC RESPIRATORY FAILURE DUE TO COMMUNITY ACUTE HYPOXIC RESPIRATORY FAILURE DUE TO [facility] ACUTE HYPOXIC RESPIRATORY FAILURE DUE TO [facility] ACUTE HYPOXIC RESPIRATORY FAILURE DUE TO [facility] ACUTE HYPOXIC RESPIRATORY FAILURE DUE TO [facility] ACUTE HYPOXIC RESPIRATORY FAILURE DUE TO [facility] ACUTE HYPOXIC RESPIRATORY FAILURE DUE TO [facility] ACUTE HYPOXIC RESPIRATORY FAILURE DUE TO COMMUNITY ACUTE HYPOXIC RESPIRATORY FAILURE DUE TO [facility] ACUTE HYPOXIC RESPIRATORY FAILURE DUE TO [facility] ACUTE HYPOXIC RESPIRATORY FAILURE DUE TO [facility] ACUTE HYPOXIC RESPIRATORY FAILURE DUE TO COMMUNITY ACUTE HYPOXIC RESPIRATORY FAILURE DUE TO COMMUNITY ACUTE GI BLEED ACUTE GI BLEED ACUTE GI BLEED ACUTE GI BLEED ACUTE GI BLEED ACUTE GI BLEED ACUTE GI BLEED Reason for Visit Acute exacerbation o f chronic obstructive pulmonary disease (COPD) [id number] Community acquired pneumonia of right lower lobe of lung Failure of outpatient treatment GI bleed Parapneumonic effusion Pleural effusion, right Anemia requiring transfusions Bleeding ulcer Syncope Chief Complaint ACUTE HYPOXIC RESPIR ATORY FAILURE DUE TO COMMUNITY ACUTE HYPOXIC RESPIRATORY FAILURE DUE TO COMMUNITY ACUTE HYPOXIC RESPIRATORY FAILURE DUE TO COMMUNITY ACUTE HYPOXIC RESPIRATORY FAILURE DUE TO COMMUNITY ACUTE HYPOXIC RESPIRATORY FAILURE DUE TO [facility] Atrial fibrillation ACUTE HYPOXIC RESPIRATORY FAILURE DUE TO [facility] ACUTE HYPOXIC RESPIRATORY FAILURE DUE TO COMMUNITY ACUTE HYPOXIC RESPIRATORY FAILURE DUE TO COMMUNITY ACUTE HYPOXIC RESPIRATORY FAILURE DUE TO COMMUNITY ACUTE HYPOXIC RESPIRATORY FAILURE DUE TO COMMUNITY ACUTE HYPOXIC RESPIRATORY FAILURE DUE TO COMMUNITY ACUTE HYPOXIC RESPIRATORY FAILURE DUE TO COMMUNITY ACUTE HYPOXIC RESPIRATORY FAILURE DUE TO COMMUNITY ACUTE HYPOXIC RESPIRATORY FAILURE DUE TO [facility] ACUTE HYPOXIC RESPIRATORY FAILURE DUE TO [facility] ACUTE HYPOXIC RESPIRATORY FAILURE DUE TO [facility] AM EKG ACUTE HYPOXIC RESPIRATORY FAILURE DUE TO [facility] ACUTE HYPOXIC RESPIRATORY FAILURE DUE TO [facility] ACUTE HYPOXIC RESPIRATORY FAILURE DUE TO [facility] ACUTE HYPOXIC RESPIRATORY FAILURE DUE TO [facility] ACUTE HYPOXIC RESPIRATORY FAILURE DUE TO [facility] ACUTE HYPOXIC RESPIRATORY FAILURE DUE TO [facility] ACUTE HYPOXIC RESPIRATORY FAILURE DUE TO [facility] ACUTE HYPOXIC RESPIRATORY FAILURE DUE TO [facility] ACUTE HYPOXIC RESPIRATORY FAILURE DUE TO [facility] ACUTE HYPOXIC RESPIRATORY FAILURE DUE TO [facility] ACUTE HYPOXIC RESPIRATORY FAILURE DUE TO COMMUNITY ACUTE HYPOXIC RESPIRATORY FAILURE DUE TO COMMUNITY ACUTE HYPOXIC RESPIRATORY FAILURE DUE TO [facility] ACUTE HYPOXIC RESPIRATORY FAILURE DUE TO COMMUNITY ACUTE GI BLEED ACUTE GI BLEED ACUTE GI BLEED ACUTE GI BLEED ACUTE GI BLEED ACUTE GI BLEED ACUTE GI BLEED ACUTE GI BLEED abd pain Reason for Visit [id number] Acute exacerbation of chronic obstructive pulmonary disease (COPD) Community acquired pneumonia of right lower lobe of lung Failure of outpatient treatment GI bleed Parapneumonic effusion Pleural effusion, right Anemia requiring transfusions Bleeding ulcer Syncope Chief Complaint ACUTE HYPOXIC RESPIR ATORY FAILURE DUE TO [facility] ACUTE HYPOXIC RESPIRATORY FAILURE DUE TO [facility] ACUTE HYPOXIC RESPIRATORY FAILURE DUE TO [facility] ACUTE HYPOXIC RESPIRATORY FAILURE DUE TO [facility] ACUTE HYPOXIC RESPIRATORY FAILURE DUE TO [facility] Atrial fibrillation ACUTE HYPOXIC RESPIRATORY FAILURE DUE TO [facility] ACUTE HYPOXIC RESPIRATORY FAILURE DUE TO [facility] ACUTE HYPOXIC RESPIRATORY FAILURE DUE TO [facility] ACUTE HYPOXIC RESPIRATORY FAILURE DUE TO [facility] ACUTE HYPOXIC RESPIRATORY FAILURE DUE TO [facility] ACUTE HYPOXIC RESPIRATORY FAILURE DUE TO [facility] ACUTE HYPOXIC RESPIRATORY FAILURE DUE TO [facility] ACUTE HYPOXIC RESPIRATORY FAILURE DUE TO [facility] ACUTE HYPOXIC RESPIRATORY FAILURE DUE TO [facility] ACUTE HYPOXIC RESPIRATORY FAILURE DUE TO [facility] ACUTE HYPOXIC RESPIRATORY FAILURE DUE TO [facility] AM EKG ACUTE HYPOXIC RESPIRATORY FAILURE DUE TO [facility] ACUTE HYPOXIC RESPIRATORY FAILURE DUE TO [facility] ACUTE HYPOXIC RESPIRATORY FAILURE DUE TO [facility] ACUTE HYPOXIC RESPIRATORY FAILURE DUE TO [facility] ACUTE HYPOXIC RESPIRATORY FAILURE DUE TO [facility] ACUTE HYPOXIC RESPIRATORY FAILURE DUE TO [facility] ACUTE HYPOXIC RESPIRATORY FAILURE DUE TO [facility] ACUTE HYPOXIC RESPIRATORY FAILURE DUE TO [facility] ACUTE HYPOXIC RESPIRATORY FAILURE DUE TO [facility] ACUTE HYPOXIC RESPIRATORY FAILURE DUE TO [facility] ACUTE HYPOXIC RESPIRATORY FAILURE DUE TO [facility] ACUTE HYPOXIC RESPIRATORY FAILURE DUE TO [facility] ACUTE HYPOXIC RESPIRATORY FAILURE DUE TO [facility] ACUTE HYPOXIC RESPIRATORY FAILURE DUE TO [facility] ACUTE GI BLEED ACUTE GI BLEED ACUTE GI BLEED ACUTE GI BLEED ACUTE GI BLEED ACUTE GI BLEED ACUTE GI BLEED ACUTE GI BLEED abd pain n/v [id number] Reason for Visit [id number] Acute exacerbation of chronic obstructive pulmonary disease (COPD) Community acquired pneumonia of right lower lobe of lung Failure of outpatient treatment GI bleed Parapneumonic effusion Pleural effusion, right Anemia requiring transfusions Bleeding ulcer Syncope Acute bronchospasm Dyspnea on exertion Elevated blood pressure reading without diagnosis of hypertension Empyema of pleural space Acute exacerbation of chronic obstructive pulmonary disease Chronic hypoxemic respiratory failure Pleural effusion, right Chief Complaint ACUTE HYPOXIC RESPIR ATORY FAILURE DUE TO COMMUNITY ACUTE HYPOXIC RESPIRATORY FAILURE DUE TO [facility] ACUTE HYPOXIC RESPIRATORY FAILURE DUE TO [facility] ACUTE HYPOXIC RESPIRATORY FAILURE DUE TO [facility] ACUTE HYPOXIC RESPIRATORY FAILURE DUE TO [facility] Atrial fibrillation ACUTE HYPOXIC RESPIRATORY FAILURE DUE TO [facility] ACUTE HYPOXIC RESPIRATORY FAILURE DUE TO [facility] ACUTE HYPOXIC RESPIRATORY FAILURE DUE TO [facility] ACUTE HYPOXIC RESPIRATORY FAILURE DUE TO [facility] ACUTE HYPOXIC RESPIRATORY FAILURE DUE TO [facility] ACUTE HYPOXIC RESPIRATORY FAILURE DUE TO [facility] ACUTE HYPOXIC RESPIRATORY FAILURE DUE TO [facility] ACUTE HYPOXIC RESPIRATORY FAILURE DUE TO [facility] ACUTE HYPOXIC RESPIRATORY FAILURE DUE TO [facility] ACUTE HYPOXIC RESPIRATORY FAILURE DUE TO [facility] ACUTE HYPOXIC RESPIRATORY FAILURE DUE TO [facility] AM EKG ACUTE HYPOXIC RESPIRATORY FAILURE DUE TO [facility] ACUTE HYPOXIC RESPIRATORY FAILURE DUE TO [facility] ACUTE HYPOXIC RESPIRATORY FAILURE DUE TO [facility] ACUTE HYPOXIC RESPIRATORY FAILURE DUE TO [facility] ACUTE HYPOXIC RESPIRATORY FAILURE DUE TO [facility] ACUTE HYPOXIC RESPIRATORY FAILURE DUE TO [facility] ACUTE HYPOXIC RESPIRATORY FAILURE DUE TO [facility] ACUTE HYPOXIC RESPIRATORY FAILURE DUE TO [facility] ACUTE HYPOXIC RESPIRATORY FAILURE DUE TO [facility] ACUTE HYPOXIC RESPIRATORY FAILURE DUE TO [facility] ACUTE HYPOXIC RESPIRATORY FAILURE DUE TO [facility] ACUTE HYPOXIC RESPIRATORY FAILURE DUE TO [facility] ACUTE HYPOXIC RESPIRATORY FAILURE DUE TO [facility] ACUTE HYPOXIC RESPIRATORY FAILURE DUE TO [facility] ACUTE GI BLEED ACUTE GI BLEED ACUTE GI BLEED ACUTE GI BLEED ACUTE GI BLEED ACUTE GI BLEED ACUTE GI BLEED ACUTE GI BLEED abd pain n/v EMPYEMA EMPYEMA EMPYEMA Reason for Visit [id number] Acute exacerbation of chronic obstructive pulmonary disease (COPD) Community acquired pneumonia of right lower lobe of lung Failure of outpatient treatment GI bleed Parapneumonic effusion Pleural effusion, right Anemia requiring transfusions Bleeding ulcer Syncope Acute bronchospasm EARNEST (acute kidney injury) Anemia requiring transfusions Atrial fibrillation Dyspnea on exertion Elevated blood pressure reading without diagnosis of hypertension Empyema of pleural space Hx of ulcer disease Acute exacerbation of chronic obstructive pulmonary disease Chronic hypoxemic respiratory failure COPD (chronic obstructive pulmonary disease) Pleural effusion, right Chief Complaint ACUTE HYPOXIC RESPIR ATORY FAILURE DUE TO COMMUNITY ACUTE HYPOXIC RESPIRATORY FAILURE DUE TO [facility] ACUTE HYPOXIC RESPIRATORY FAILURE DUE TO [facility] ACUTE HYPOXIC RESPIRATORY FAILURE DUE TO [facility] ACUTE HYPOXIC RESPIRATORY FAILURE DUE TO [facility] Atrial fibrillation ACUTE HYPOXIC RESPIRATORY FAILURE DUE TO [facility] ACUTE HYPOXIC RESPIRATORY FAILURE DUE TO [facility] ACUTE HYPOXIC RESPIRATORY FAILURE DUE TO [facility] ACUTE HYPOXIC RESPIRATORY FAILURE DUE TO [facility] ACUTE HYPOXIC RESPIRATORY FAILURE DUE TO [facility] ACUTE HYPOXIC RESPIRATORY FAILURE DUE TO [facility] ACUTE HYPOXIC RESPIRATORY FAILURE DUE TO [facility] ACUTE HYPOXIC RESPIRATORY FAILURE DUE TO [facility] ACUTE HYPOXIC RESPIRATORY FAILURE DUE TO [facility] ACUTE HYPOXIC RESPIRATORY FAILURE DUE TO [facility] ACUTE HYPOXIC RESPIRATORY FAILURE DUE TO [facility] AM EKG ACUTE HYPOXIC RESPIRATORY FAILURE DUE TO [facility] ACUTE HYPOXIC RESPIRATORY FAILURE DUE TO [facility] ACUTE HYPOXIC RESPIRATORY FAILURE DUE TO [facility] ACUTE HYPOXIC RESPIRATORY FAILURE DUE TO [facility] ACUTE HYPOXIC RESPIRATORY FAILURE DUE TO [facility] ACUTE HYPOXIC RESPIRATORY FAILURE DUE TO [facility] ACUTE HYPOXIC RESPIRATORY FAILURE DUE TO [facility] ACUTE HYPOXIC RESPIRATORY FAILURE DUE TO [facility] ACUTE HYPOXIC RESPIRATORY FAILURE DUE TO [facility] ACUTE HYPOXIC RESPIRATORY FAILURE DUE TO [facility] ACUTE HYPOXIC RESPIRATORY FAILURE DUE TO [facility] ACUTE HYPOXIC RESPIRATORY FAILURE DUE TO [facility] ACUTE HYPOXIC RESPIRATORY FAILURE DUE TO [facility] ACUTE HYPOXIC RESPIRATORY FAILURE DUE TO [facility] ACUTE GI BLEED ACUTE GI BLEED ACUTE GI BLEED ACUTE GI BLEED ACUTE GI BLEED ACUTE GI BLEED ACUTE GI BLEED ACUTE GI BLEED abd pain n/v EMPYEMA EMPYEMA EMPYEMA Atrial fibrillation RHYTHM CHANGE EMPYEMA 2 units PRBC's Reason for Visit [id number] Acute exacerbation of chronic obstructive pulmonary disease (COPD) Community acquired pneumonia of right lower lobe of lung Failure of outpatient treatment GI bleed Parapneumonic effusion Pleural effusion, right Anemia requiring transfusions Bleeding ulcer Syncope Acute bronchospasm EARNEST (acute kidney injury) Anemia requiring transfusions Atrial fibrillation Dyspnea on exertion Elevated blood pressure reading without diagnosis of hypertension Empyema of pleural space Hx of ulcer disease Acute exacerbation of chronic obstructive pulmonary disease Chronic hypoxemic respiratory failure COPD (chronic obstructive pulmonary disease) Pleural effusion, right Chief Complaint ACUTE HYPOXIC RESPIR ATORY FAILURE DUE TO [facility] ACUTE HYPOXIC RESPIRATORY FAILURE DUE TO [facility] ACUTE HYPOXIC RESPIRATORY FAILURE DUE TO [facility] ACUTE HYPOXIC RESPIRATORY FAILURE DUE TO [facility] ACUTE HYPOXIC RESPIRATORY FAILURE DUE TO [facility] Atrial fibrillation ACUTE HYPOXIC RESPIRATORY FAILURE DUE TO [facility] ACUTE HYPOXIC RESPIRATORY FAILURE DUE TO [facility] ACUTE HYPOXIC RESPIRATORY FAILURE DUE TO [facility] ACUTE HYPOXIC RESPIRATORY FAILURE DUE TO [facility] ACUTE HYPOXIC RESPIRATORY FAILURE DUE TO [facility] ACUTE HYPOXIC RESPIRATORY FAILURE DUE TO [facility] ACUTE HYPOXIC RESPIRATORY FAILURE DUE TO [facility] ACUTE HYPOXIC RESPIRATORY FAILURE DUE TO [facility] ACUTE HYPOXIC RESPIRATORY FAILURE DUE TO [facility] ACUTE HYPOXIC RESPIRATORY FAILURE DUE TO [facility] ACUTE HYPOXIC RESPIRATORY FAILURE DUE TO [facility] AM EKG ACUTE HYPOXIC RESPIRATORY FAILURE DUE TO [facility] ACUTE HYPOXIC RESPIRATORY FAILURE DUE TO [facility] ACUTE HYPOXIC RESPIRATORY FAILURE DUE TO [facility] ACUTE HYPOXIC RESPIRATORY FAILURE DUE TO [facility] ACUTE HYPOXIC RESPIRATORY FAILURE DUE TO [facility] ACUTE HYPOXIC RESPIRATORY FAILURE DUE TO [facility] ACUTE HYPOXIC RESPIRATORY FAILURE DUE TO [facility] ACUTE HYPOXIC RESPIRATORY FAILURE DUE TO [facility] ACUTE HYPOXIC RESPIRATORY FAILURE DUE TO COMMUNITY ACUTE HYPOXIC RESPIRATORY FAILURE DUE TO COMMUNITY ACUTE HYPOXIC RESPIRATORY FAILURE DUE TO COMMUNITY ACUTE HYPOXIC RESPIRATORY FAILURE DUE TO COMMUNITY ACUTE HYPOXIC RESPIRATORY FAILURE DUE TO COMMUNITY Reason for Visit Community acquired p neumonia of right lower lobe of lung Failure of outpatient treatment GI bleed Lung nodules Parapneumonic effusion Pleural effusion, right [id number] Acute exacerbation of chronic obstructive pulmonary disease (COPD) Chief Complaint Admit Date 5 WK F/U PRE SURG May 24, 2024 1:27pm stage 3 left upper extremity Arterioveno us Fistula June 05, 2024 8:53am stage 3 left upper extremity Arterioveno us Fistula June 05, 2024 10:55am 2-3 WK POST TRANSPOSITION PROCEDURE Dece mber 2023 2:19pm SOB July 03, 2024 11:42am ACUTE EXACERBATION OF COPD 2/2 RSV PNA J anuary 2024 5:59am ACUTE EXACERBATION OF COPD 2/2 RSV PNA J anuary 2024 6:06am ACUTE EXACERBATION OF COPD 2/2 RSV PNA J anuary 2024 8:45am ACUTE EXACERBATION OF COPD 2/2 RSV PNA J anuary 2024 3:07pm ACUTE EXACERBATION OF COPD 2/2 RSV PNA J anuary 2024 1:08pm COPD EXACERBATION, PNEUMONIA July 12:31pm COPD EXACERBATION, PNEUMONIA July 12:39pm COPD EXACERBATION, PNEUMONIA July 12:40pm COPD EXACERBATION, PNEUMONIA July 12:10pm COPD EXACERBATION, PNEUMONIA July 10:18am COPD EXACERBATION, PNEUMONIA July 2:31pm shortness of breath August 02, 2024 1 0:43pm acute on chronic resp failure August 062024 7:25am acute on chronic resp failure August 072024 9:41am acute on chronic resp failure August 082024 4:59pm acute on chronic resp failure August 092024 12:41pm acute on chronic resp failure August 102024 11:48am [id number] September 06, 2024 7:01 am [email or web address] September 06, 2024 8:03 am SHOULDER PAIN September 17, 2024 5:0 9pm Reason for Visit Admit Date End-stage renal disease (ESRD) May 24, 2024 1:27pm End-stage renal disease (ESRD) June 05, 2024 8:53am End-stage renal disease (ESRD) June 19, 2024 2:19pm Respiratory syncytial virus bronchitis J anuary 2024 5:59am COPD exacerbation July 08, 2024 5: 59am Hypokalemia July 08, 2024 5: 59am End-stage renal disease (ESRD) July 082024 5:59am Pulmonary nodule July 08, 2024 5: 59am Acute respiratory failure with hypoxia J anuary 2024 12:31pm Anemia of chronic disease July 23, 2024 12:31pm End stage chronic kidney disease July 23, 2024 12:31pm End-stage renal disease (ESRD) July 052024 12:31pm Pneumonia July 23, 2024 1 2:31pm Sepsis July 23, 2024 1 2:31pm Acute exacerbation of chroni c obstructive pulmonary disease (COPD) August 06, 2024 7:25am End stage renal disease on dialysis 2024 7:25am Pulmonary nodule August 06, 2024 7 :25am ESRD (end stage renal disease) on dialys is September 06, 2024 7:01am Chief Complaint Admit Date ACUTE EXACERBATION OF COPD 2/2 RSV PNA J anuary 2024 5:59am ACUTE EXACERBATION OF COPD 2/2 RSV PNA J anuary 2024 3:07pm ACUTE EXACERBATION OF COPD 2/2 RSV PNA J anuary 2024 1:08pm COPD EXACERBATION, PNEUMONIA July 12:31pm COPD EXACERBATION, PNEUMONIA July 12:39pm COPD EXACERBATION, PNEUMONIA July 12:40pm COPD EXACERBATION, PNEUMONIA July 12:10pm COPD EXACERBATION, PNEUMONIA July 10:18am COPD EXACERBATION, PNEUMONIA July 2:31pm shortness of breath August 02, 2024 1 0:43pm acute on chronic resp failure August 062024 7:25am acute on chronic resp failure August 072024 9:41am acute on chronic resp failure August 082024 4:59pm acute on chronic resp failure August 092024 12:41pm acute on chronic resp failure August 102024 11:48am [id number] September 06, 2024 7:01 am [email or web address] September 06, 2024 8:03 am SHOULDER PAIN September 17, 2024 5:0 9pm POST R I J Cath Removal 2-4 WK FU September 20, 2024 10:22am CHEST PAIN October 31, 2024 9:5 2am ACUTE, AFIB, SOB November 01, 2024 11:29a m Reason for Visit Admit Date Respiratory syncytial virus bronchitis J anuary 2024 5:59am COPD exacerbation July 08, 2024 5: 59am Hypokalemia July 08, 2024 5: 59am End-stage renal disease (ESRD) July 082024 5:59am Pulmonary nodule July 08, 2024 5: 59am Acute respiratory failure with hypoxia J anuary 2024 12:31pm Anemia of chronic disease July 23, 2024 12:31pm End stage chronic kidney disease July 23, 2024 12:31pm End-stage renal disease (ESRD) July 052024 12:31pm Pneumonia July 23, 2024 1 2:31pm Sepsis July 23, 2024 1 2:31pm Acute exacerbation of chroni c obstructive pulmonary disease (COPD) August 06, 2024 7:25am End stage renal disease on dialysis Febr 2024 7:25am Pulmonary nodule August 06, 2024 7 :25am ESRD (end stage renal disease) on dialys is September 06, 2024 7:01am AVF (arteriovenous fistula) September 20, 2024 10:22am ESRD (end stage renal disease) on dialys is September 20, 2024 10:22am Chief Complaint Admit Date z99September 06, 2024 7:01 am [id number] September 06, 2024 8:03 am SHOULDER PAIN September 17, 2024 5:0 9pm POST R I J Cath Removal 2-4 WK FU September 20, 2024 10:22am CHEST PAIN October 31, 2024 9:5 2am ACUTE, AFIB, SOB November 01, 2024 11:29a m PAROXYSMAL ATRIAL FIBRILLATION November 20, 2024 1:00pm PAROXYSMAL ATRIAL FIBRILLATION November 20, 2024 1:11pm POSSIBLE INTERVENTION January 03, 2025 9:2 9am POSSIBLE INTERVENTION January 03, 2025 11: 55am Reason for Visit Admit Date ESRD (end stage renal disease) on dialys is September 06, 2024 7:01am AVF (arteriovenous fistula) September 20, 2024 10:22am ESRD (end stage renal disease) on dialys is September 20, 2024 10:22am Coronary artery disease November 01, 2024 11 :29am Essential hypertension November 01, 2024 11: 29am Hyperlipidemia November 01, 2024 11:29a m Transient atrial fibrillation November 01 025 11:29am End-stage renal disease (ESRD) November 01, 2024 11:29am Dialysis AV fistula malfunction January 9:29am Chief Complaint Admit Date CHEST PAIN October 31, 2024 9:5 2am ACUTE, AFIB, SOB November 01, 2024 11:29a m PAROXYSMAL ATRIAL FIBRILLATION November 20, 2024 1:00pm PAROXYSMAL ATRIAL FIBRILLATION November 20, 2024 1:11pm POSSIBLE INTERVENTION January 03, 2025 9:2 9am POSSIBLE INTERVENTION January 03, 2025 11: 55am 2 M FU January 24, 2025 3:27 pm Reason for Visit Admit Date Coronary artery disease November 01, 2024 11 :29am Essential hypertension November 01, 2024 11: 29am Hyperlipidemia November 01, 2024 11:29a m Transient atrial fibrillation November 01 025 11:29am End-stage renal disease (ESRD) November 01, 2024 11:29am Dialysis AV fistula malfunction January 9:29am History of atrial fibrillation January 3:27pm Coronary artery disease January 24, 2025 3:27pm Essential hypertension January 24, 2025 3 :27pm Hyperlipidemia January 24, 2025 3:27 pm Transient atrial fibrillation January 24, 2025 3:27pm End-stage renal disease (ESRD) January 3:27pm Additional Source Comments INFORMATION SOURCE (unrecogn ized section and content) DATE CREATED AUTHOR 10/14/2020 [facility] DATE CREATED AUTHOR AUTHOR'S ORGANIZ ATION 06/18/2023 [facility] ([place]) DATE CREATED AUTHOR AUTHOR'S ORGANIZ ATION 08/15/2023 [facility] DATE CREATED AUTHOR AUTHOR'S ORGANIZ ATION 09/06/2024 [facility] DATE CREATED AUTHOR AUTHOR'S ORGANIZ ATION 12/01/2024 [facility] DATE CREATED AUTHOR AUTHOR'S ORGANIZ ATION 02/08/2025 [facility] Source Comments (unrecognize d section and content) In the event this informatio n is protected by the Federal Confidentiality of Alcohol and Drug Abuse Patient Records regulations: The Federal rules restrict any use of the information to criminally investigate or prosecute any alcohol or drug abuse patient.[facility] the event this information is protected by the Federal Confidentiality of Alcohol and Drug Abuse Patient Records regulations: The Federal rules restrict any use of the information to criminally investigate or prosecute any alcohol or drug abuse patient.[facility] the event this information is protected by the Federal Confidentiality of Alcohol and Drug Abuse Patient Records regulations: The Federal rules restrict any use of the information to criminally investigate or prosecute any alcohol or drug abuse patient.[facility] the event this information is protected by the Federal Confidentiality of Alcohol and Drug Abuse Patient Records regulations: The Federal rules restrict any use of the information to criminally investigate or prosecute any alcohol or drug abuse patient.[facility] the event this information is protected by the Federal Confidentiality of Alcohol and Drug Abuse Patient Records regulations: The Federal rules restrict any use of the information to criminally investigate or prosecute any alcohol or drug abuse patient.[facility] the event this information is protected by the Federal Confidentiality of Alcohol and Drug Abuse Patient Records regulations: The Federal rules restrict any use of the information to criminally investigate or prosecute any alcohol or drug abuse patient.[facility] the event this information is protected by the Federal Confidentiality of Alcohol and Drug Abuse Patient Records regulations: The Federal rules restrict any use of the information to criminally investigate or prosecute any alcohol or drug abuse patient.[facility] the event this information is protected by the Federal Confidentiality of Alcohol and Drug Abuse Patient Records regulations: The Federal rules restrict any use of the information to criminally investigate or prosecute any alcohol or drug abuse patient.[facility] the event this information is protected by the Federal Confidentiality of Alcohol and Drug Abuse Patient Records regulations: The Federal rules restrict any use of the information to criminally investigate or prosecute any alcohol or drug abuse patient.[facility] the event this information is protected by the Federal Confidentiality of Alcohol and Drug Abuse Patient Records regulations: The Federal rules restrict any use of the information to criminally investigate or prosecute any alcohol or drug abuse patient.[facility] the event this information is protected by the Federal Confidentiality of Alcohol and Drug Abuse Patient Records regulations: The Federal rules restrict any use of the information to criminally investigate or prosecute any alcohol or drug abuse patient.[facility] the event this information is protected by the Federal Confidentiality of Alcohol and Drug Abuse Patient Records regulations: The Federal rules restrict any use of the information to criminally investigate or prosecute any alcohol or drug abuse patient.[facility] the event this information is protected by the Federal Confidentiality of Alcohol and Drug Abuse Patient Records regulations: The Federal rules restrict any use of the information to criminally investigate or prosecute any alcohol or drug abuse patient.[facility] the event this information is protected by the Federal Confidentiality of Alcohol and Drug Abuse Patient Records regulations: The Federal rules restrict any use of the information to criminally investigate or prosecute any alcohol or drug abuse patient.[facility] the event this information is protected by the Federal Confidentiality of Alcohol and Drug Abuse Patient Records regulations: The Federal rules restrict any use of the information to criminally investigate or prosecute any alcohol or drug abuse patient.[facility] the event this information is protected by the Federal Confidentiality of Alcohol and Drug Abuse Patient Records regulations: The Federal rules restrict any use of the information to criminally investigate or prosecute any alcohol or drug abuse patient.[facility] the event this information is protected by the Federal Confidentiality of Alcohol and Drug Abuse Patient Records regulations: The Federal rules restrict any use of the information to criminally investigate or prosecute any alcohol or drug abuse patient.[facility] the event this information is protected by the Federal Confidentiality of Alcohol and Drug Abuse Patient Records regulations: The Federal rules restrict any use of the information to criminally investigate or prosecute any alcohol or drug abuse patient.[facility] the event this information is protected by the Federal Confidentiality of Alcohol and Drug Abuse Patient Records regulations: The Federal rules restrict any use of the information to criminally investigate or prosecute any alcohol or drug abuse patient.[facility] the event this information is protected by the Federal Confidentiality of Alcohol and Drug Abuse Patient Records regulations: The Federal rules restrict any use of the information to criminally investigate or prosecute any alcohol or drug abuse patient.[facility]In the event this information is protected by the Federal Confidentiality of Alcohol and Drug Abuse Patient Records regulations: The Federal rules restrict any use of the information to criminally investigate or prosecute any alcohol or drug abuse patient.[facility]In the event this information is protected by the Federal Confidentiality of Alcohol and Drug Abuse Patient Records regulations: The Federal rules restrict any use of the information to criminally investigate or prosecute any alcohol or drug abuse patient.[facility]In the event this information is protected by the Federal Confidentiality of Alcohol and Drug Abuse Patient Records regulations: The Federal rules restrict any use of the information to criminally investigate or prosecute any alcohol or drug abuse patient.[facility]In the event this information is protected by the Federal Confidentiality of Alcohol and Drug Abuse Patient Records regulations: The Federal rules restrict any use of the information to criminally investigate or prosecute any alcohol or drug abuse patient.[facility] the event this information is protected by the Federal Confidentiality of Alcohol and Drug Abuse Patient Records regulations: The Federal rules restrict any use of the information to criminally investigate or prosecute any alcohol or drug abuse patient.[facility]In the event this information is protected by the Federal Confidentiality of Alcohol and Drug Abuse Patient Records regulations: The Federal rules restrict any use of the information to criminally investigate or prosecute any alcohol or drug abuse patient.[facility]In the event this information is protected by the Federal Confidentiality of Alcohol and Drug Abuse Patient Records regulations: The Federal rules restrict any use of the information to criminally investigate or prosecute any alcohol or drug abuse patient.[facility]In the event this information is protected by the Federal Confidentiality of Alcohol and Drug Abuse Patient Records regulations: The Federal rules restrict any use of the information to criminally investigate or prosecute any alcohol or drug abuse patient.[facility]In the event this information is protected by the Federal Confidentiality of Alcohol and Drug Abuse Patient Records regulations: The Federal rules restrict any use of the information to criminally investigate or prosecute any alcohol or drug abuse patient.[facility]In the event this information is protected by the Federal Confidentiality of Alcohol and Drug Abuse Patient Records regulations: The Federal rules restrict any use of the information to criminally investigate or prosecute any alcohol or drug abuse patient.[facility] HospitalIn the event this information is protected by the Federal Confidentiality of Alcohol and Drug Abuse Patient Records regulations: The Federal rules restrict any use of the information to criminally investigate or prosecute any alcohol or drug abuse patient.[facility]In the event this information is protected by the Federal Confidentiality of Alcohol and Drug Abuse Patient Records regulations: The Federal rules restrict any use of the information to criminally investigate or prosecute any alcohol or drug abuse patient.[facility] HospitalIn the event this information is protected by the Federal Confidentiality of Alcohol and Drug Abuse Patient Records regulations: The Federal rules restrict any use of the information to criminally investigate or prosecute any alcohol or drug abuse patient.[facility]In the event this information is protected by the Federal Confidentiality of Alcohol and Drug Abuse Patient Records regulations: The Federal rules restrict any use of the information to criminally investigate or prosecute any alcohol or drug abuse patient.[facility]In the event this information is protected by the Federal Confidentiality of Alcohol and Drug Abuse Patient Records regulations: The Federal rules restrict any use of the information to criminally investigate or prosecute any alcohol or drug abuse patient.[facility]In the event this information is protected by the Federal Confidentiality of Alcohol and Drug Abuse Patient Records regulations: The Federal rules restrict any use of the information to criminally investigate or prosecute any alcohol or drug abuse patient.[facility]In the event this information is protected by the Federal Confidentiality of Alcohol and Drug Abuse Patient Records regulations: The Federal rules restrict any use of the information to criminally investigate or prosecute any alcohol or drug abuse patient.[facility]In the event this information is protected by the Federal Confidentiality of Alcohol and Drug Abuse Patient Records regulations: The Federal rules restrict any use of the information to criminally investigate or prosecute any alcohol or drug abuse patient.[facility]In the event this information is protected by the Federal Confidentiality of Alcohol and Drug Abuse Patient Records regulations: The Federal rules restrict any use of the information to criminally investigate or prosecute any alcohol or drug abuse patient.[facility]In the event this information is protected by the Federal Confidentiality of Alcohol and Drug Abuse Patient Records regulations: The Federal rules restrict any use of the information to criminally investigate or prosecute any alcohol or drug abuse patient.[facility]In the event this information is protected by the Federal Confidentiality of Alcohol and Drug Abuse Patient Records regulations: The Federal rules restrict any use of the information to criminally investigate or prosecute any alcohol or drug abuse patient.[facility]In the event this information is protected by the Federal Confidentiality of Alcohol and Drug Abuse Patient Records regulations: The Federal rules restrict any use of the information to criminally investigate or prosecute any alcohol or drug abuse patient.[facility]In the event this information is protected by the Federal Confidentiality of Alcohol and Drug Abuse Patient Records regulations: The Federal rules restrict any use of the information to criminally investigate or prosecute any alcohol or drug abuse patient.[facility] HospitalIn the event this information is protected by the Federal Confidentiality of Alcohol and Drug Abuse Patient Records regulations: The Federal rules restrict any use of the information to criminally investigate or prosecute any alcohol or drug abuse patient.[facility] HospitalIn the event this information is protected by the Federal Confidentiality of Alcohol and Drug Abuse Patient Records regulations: The Federal rules restrict any use of the information to criminally investigate or prosecute any alcohol or drug abuse patient.[facility] HospitalIn the event this information is protected by the Federal Confidentiality of Alcohol and Drug Abuse Patient Records regulations: The Federal rules restrict any use of the information to criminally investigate or prosecute any alcohol or drug abuse patient.[facility] HospitalIn the event this information is protected by the Federal Confidentiality of Alcohol and Drug Abuse Patient Records regulations: The Federal rules restrict any use of the information to criminally investigate or prosecute any alcohol or drug abuse patient.[facility] HospitalIn the event this information is protected by the Federal Confidentiality of Alcohol and Drug Abuse Patient Records regulations: The Federal rules restrict any use of the information to criminally investigate or prosecute any alcohol or drug abuse patient.[facility] HospitalIn the event this information is protected by the Federal Confidentiality of Alcohol and Drug Abuse Patient Records regulations: The Federal rules restrict any use of the information to criminally investigate or prosecute any alcohol or drug abuse patient.[facility] HospitalIn the event this information is protected by the Federal Confidentiality of Alcohol and Drug Abuse Patient Records regulations: The Federal rules restrict any use of the information to criminally investigate or prosecute any alcohol or drug abuse patient.[facility] HospitalIn the event this information is protected by the Federal Confidentiality of Alcohol and Drug Abuse Patient Records regulations: The Federal rules restrict any use of the information to criminally investigate or prosecute any alcohol or drug abuse patient.[facility]In the event this information is protected by the Federal Confidentiality of Alcohol and Drug Abuse Patient Records regulations: The Federal rules restrict any use of the information to criminally investigate or prosecute any alcohol or drug abuse patient.[facility]In the event this information is protected by the Federal Confidentiality of Alcohol and Drug Abuse Patient Records regulations: The Federal rules restrict any use of the information to criminally investigate or prosecute any alcohol or drug abuse patient.[facility] HospitalIn the event this information is protected by the Federal Confidentiality of Alcohol and Drug Abuse Patient Records regulations: The Federal rules restrict any use of the information to criminally investigate or prosecute any alcohol or drug abuse patient.[facility] HospitalIn the event this information is protected by the Federal Confidentiality of Alcohol and Drug Abuse Patient Records regulations: The Federal rules restrict any use of the information to criminally investigate or prosecute any alcohol or drug abuse patient.[facility] HospitalIn the event this information is protected by the Federal Confidentiality of Alcohol and Drug Abuse Patient Records regulations: The Federal rules restrict any use of the information to criminally investigate or prosecute any alcohol or drug abuse patient.[facility] HospitalIn the event this information is protected by the Federal Confidentiality of Alcohol and Drug Abuse Patient Records regulations: The Federal rules restrict any use of the information to criminally investigate or prosecute any alcohol or drug abuse patient.[facility] HospitalIn the event this information is protected by the Federal Confidentiality of Alcohol and Drug Abuse Patient Records regulations: The Federal rules restrict any use of the information to criminally investigate or prosecute any alcohol or drug abuse patient.[facility] HospitalIn the event this information is protected by the Federal Confidentiality of Alcohol and Drug Abuse Patient Records regulations: The Federal rules restrict any use of the information to criminally investigate or prosecute any alcohol or drug abuse patient.[facility] HospitalIn the event this information is protected by the Federal Confidentiality of Alcohol and Drug Abuse Patient Records regulations: The Federal rules restrict any use of the information to criminally investigate or prosecute any alcohol or drug abuse patient.[facility] HospitalIn the event this information is protected by the Federal Confidentiality of Alcohol and Drug Abuse Patient Records regulations: The Federal rules restrict any use of the information to criminally investigate or prosecute any alcohol or drug abuse patient.[facility] HospitalIn the event this information is protected by the Federal Confidentiality of Alcohol and Drug Abuse Patient Records regulations: The Federal rules restrict any use of the information to criminally investigate or prosecute any alcohol or drug abuse patient.[facility] HospitalIn the event this information is protected by the Federal Confidentiality of Alcohol and Drug Abuse Patient Records regulations: The Federal rules restrict any use of the information to criminally investigate or prosecute any alcohol or drug abuse patient.[facility]In the event this information is protected by the Federal Confidentiality of Alcohol and Drug Abuse Patient Records regulations: The Federal rules restrict any use of the information to criminally investigate or prosecute any alcohol or drug abuse patient.[facility] HospitalIn the event this information is protected by the Federal Confidentiality of Alcohol and Drug Abuse Patient Records regulations: The Federal rules restrict any use of the information to criminally investigate or prosecute any alcohol or drug abuse patient.[facility] HospitalIn the event this information is protected by the Federal Confidentiality of Alcohol and Drug Abuse Patient Records regulations: The Federal rules restrict any use of the information to criminally investigate or prosecute any alcohol or drug abuse patient.[facility] HospitalIn the event this information is protected by the Federal Confidentiality of Alcohol and Drug Abuse Patient Records regulations: The Federal rules restrict any use of the information to criminally investigate or prosecute any alcohol or drug abuse patient.[facility]In the event this information is protected by the Federal Confidentiality of Alcohol and Drug Abuse Patient Records regulations: The Federal rules restrict any use of the information to criminally investigate or prosecute any alcohol or drug abuse patient.[facility] HospitalIn the event this information is protected by the Federal Confidentiality of Alcohol and Drug Abuse Patient Records regulations: The Federal rules restrict any use of the information to criminally investigate or prosecute any alcohol or drug abuse patient.[facility] HospitalIn the event this information is protected by the Federal Confidentiality of Alcohol and Drug Abuse Patient Records regulations: The Federal rules restrict any use of the information to criminally investigate or prosecute any alcohol or drug abuse patient.[facility] HospitalIn the event this information is protected by the Federal Confidentiality of Alcohol and Drug Abuse Patient Records regulations: The Federal rules restrict any use of the information to criminally investigate or prosecute any alcohol or drug abuse patient.[facility] HospitalIn the event this information is protected by the Federal Confidentiality of Alcohol and Drug Abuse Patient Records regulations: The Federal rules restrict any use of the information to criminally investigate or prosecute any alcohol or drug abuse patient.[facility] HospitalIn the event this information is protected by the Federal Confidentiality of Alcohol and Drug Abuse Patient Records regulations: The Federal rules restrict any use of the information to criminally investigate or prosecute any alcohol or drug abuse patient.[facility] HospitalIn the event this information is protected by the Federal Confidentiality of Alcohol and Drug Abuse Patient Records regulations: The Federal rules restrict any use of the information to criminally investigate or prosecute any alcohol or drug abuse patient.[facility]In the event this information is protected by the Federal Confidentiality of Alcohol and Drug Abuse Patient Records regulations: The Federal rules restrict any use of the information to criminally investigate or prosecute any alcohol or drug abuse patient.[facility] HospitalIn the event this information is protected by the Federal Confidentiality of Alcohol and Drug Abuse Patient Records regulations: The Federal rules restrict any use of the information to criminally investigate or prosecute any alcohol or drug abuse patient.[facility] HospitalIn the event this information is protected by the Federal Confidentiality of Alcohol and Drug Abuse Patient Records regulations: The Federal rules restrict any use of the information to criminally investigate or prosecute any alcohol or drug abuse patient.[facility] HospitalIn the event this information is protected by the Federal Confidentiality of Alcohol and Drug Abuse Patient Records regulations: The Federal rules restrict any use of the information to criminally investigate or prosecute any alcohol or drug abuse patient.[facility]In the event this information is protected by the Federal Confidentiality of Alcohol and Drug Abuse Patient Records regulations: The Federal rules restrict any use of the information to criminally investigate or prosecute any alcohol or drug abuse patient.[facility] HospitalIn the event this information is protected by the Federal Confidentiality of Alcohol and Drug Abuse Patient Records regulations: The Federal rules restrict any use of the information to criminally investigate or prosecute any alcohol or drug abuse patient.[facility] HospitalIn the event this information is protected by the Federal Confidentiality of Alcohol and Drug Abuse Patient Records regulations: The Federal rules restrict any use of the information to criminally investigate or prosecute any alcohol or drug abuse patient.[facility]In the event this information is protected by the Federal Confidentiality of Alcohol and Drug Abuse Patient Records regulations: The Federal rules restrict any use of the information to criminally investigate or prosecute any alcohol or drug abuse patient.[facility]In the event this information is protected by the Federal Confidentiality of Alcohol and Drug Abuse Patient Records regulations: The Federal rules restrict any use of the information to criminally investigate or prosecute any alcohol or drug abuse patient.[facility] HospitalIn the event this information is protected by the Federal Confidentiality of Alcohol and Drug Abuse Patient Records regulations: The Federal rules restrict any use of the information to criminally investigate or prosecute any alcohol or drug abuse patient.[facility]In the event this information is protected by the Federal Confidentiality of Alcohol and Drug Abuse Patient Records regulations: The Federal rules restrict any use of the information to criminally investigate or prosecute any alcohol or drug abuse patient.[facility]In the event this information is protected by the Federal Confidentiality of Alcohol and Drug Abuse Patient Records regulations: The Federal rules restrict any use of the information to criminally investigate or prosecute any alcohol or drug abuse patient.[facility]In the event this information is protected by the Federal Confidentiality of Alcohol and Drug Abuse Patient Records regulations: The Federal rules restrict any use of the information to criminally investigate or prosecute any alcohol or drug abuse patient.[facility]In the event this information is protected by the Federal Confidentiality of Alcohol and Drug Abuse Patient Records regulations: The Federal rules restrict any use of the information to criminally investigate or prosecute any alcohol or drug abuse patient.[facility]In the event this information is protected by the Federal Confidentiality of Alcohol and Drug Abuse Patient Records regulations: The Federal rules restrict any use of the information to criminally investigate or prosecute any alcohol or drug abuse patient.[facility]In the event this information is protected by the Federal Confidentiality of Alcohol and Drug Abuse Patient Records regulations: The Federal rules restrict any use of the information to criminally investigate or prosecute any alcohol or drug abuse patient.[facility]In the event this information is protected by the Federal Confidentiality of Alcohol and Drug Abuse Patient Records regulations: The Federal rules restrict any use of the information to criminally investigate or prosecute any alcohol or drug abuse patient.[facility]In the event this information is protected by the Federal Confidentiality of Alcohol and Drug Abuse Patient Records regulations: The Federal rules restrict any use of the information to criminally investigate or prosecute any alcohol or drug abuse patient.[facility]In the event this information is protected by the Federal Confidentiality of Alcohol and Drug Abuse Patient Records regulations: The Federal rules restrict any use of the information to criminally investigate or prosecute any alcohol or drug abuse patient.[facility]In the event this information is protected by the Federal Confidentiality of Alcohol and Drug Abuse Patient Records regulations: The Federal rules restrict any use of the information to criminally investigate or prosecute any alcohol or drug abuse patient.[facility]In the event this information is protected by the Federal Confidentiality of Alcohol and Drug Abuse Patient Records regulations: The Federal rules restrict any use of the information to criminally investigate or prosecute any alcohol or drug abuse patient.[facility]In the event this information is protected by the Federal Confidentiality of Alcohol and Drug Abuse Patient Records regulations: The Federal rules restrict any use of the information to criminally investigate or prosecute any alcohol or drug abuse patient.[facility]In the event this information is protected by the Federal Confidentiality of Alcohol and Drug Abuse Patient Records regulations: The Federal rules restrict any use of the information to criminally investigate or prosecute any alcohol or drug abuse patient.[facility]In the event this information is protected by the Federal Confidentiality of Alcohol and Drug Abuse Patient Records regulations: The Federal rules restrict any use of the information to criminally investigate or prosecute any alcohol or drug abuse patient.[facility]In the event this information is protected by the Federal Confidentiality of Alcohol and Drug Abuse Patient Records regulations: The Federal rules restrict any use of the information to criminally investigate or prosecute any alcohol or drug abuse patient.[facility]In the event this information is protected by the Federal Confidentiality of Alcohol and Drug Abuse Patient Records regulations: The Federal rules restrict any use of the information to criminally investigate or prosecute any alcohol or drug abuse patient.[facility]In the event this information is protected by the Federal Confidentiality of Alcohol and Drug Abuse Patient Records regulations: The Federal rules restrict any use of the information to criminally investigate or prosecute any alcohol or drug abuse patient.[facility]In the event this information is protected by the Federal Confidentiality of Alcohol and Drug Abuse Patient Records regulations: The Federal rules restrict any use of the information to criminally investigate or prosecute any alcohol or drug abuse patient.[facility]In the event this information is protected by the Federal Confidentiality of Alcohol and Drug Abuse Patient Records regulations: The Federal rules restrict any use of the information to criminally investigate or prosecute any alcohol or drug abuse patient.[facility]In the event this information is protected by the Federal Confidentiality of Alcohol and Drug Abuse Patient Records regulations: The Federal rules restrict any use of the information to criminally investigate or prosecute any alcohol or drug abuse patient.[facility]In the event this information is protected by the Federal Confidentiality of Alcohol and Drug Abuse Patient Records regulations: The Federal rules restrict any use of the information to criminally investigate or prosecute any alcohol or drug abuse patient.[facility]In the event this information is protected by the Federal Confidentiality of Alcohol and Drug Abuse Patient Records regulations: The Federal rules restrict any use of the information to criminally investigate or prosecute any alcohol or drug abuse patient.[facility]In the event this information is protected by the Federal Confidentiality of Alcohol and Drug Abuse Patient Records regulations: The Federal rules restrict any use of the information to criminally investigate or prosecute any alcohol or drug abuse patient.[facility]In the event this information is protected by the Federal Confidentiality of Alcohol and Drug Abuse Patient Records regulations: The Federal rules restrict any use of the information to criminally investigate or prosecute any alcohol or drug abuse patient.[facility]In the event this information is protected by the Federal Confidentiality of Alcohol and Drug Abuse Patient Records regulations: The Federal rules restrict any use of the information to criminally investigate or prosecute any alcohol or drug abuse patient.[facility]In the event this information is protected by the Federal Confidentiality of Alcohol and Drug Abuse Patient Records regulations: The Federal rules restrict any use of the information to criminally investigate or prosecute any alcohol or drug abuse patient.[facility]In the event this information is protected by the Federal Confidentiality of Alcohol and Drug Abuse Patient Records regulations: The Federal rules restrict any use of the information to criminally investigate or prosecute any alcohol or drug abuse patient.[facility]In the event this information is protected by the Federal Confidentiality of Alcohol and Drug Abuse Patient Records regulations: The Federal rules restrict any use of the information to criminally investigate or prosecute any alcohol or drug abuse patient.[facility]In the event this information is protected by the Federal Confidentiality of Alcohol and Drug Abuse Patient Records regulations: The Federal rules restrict any use of the information to criminally investigate or prosecute any alcohol or drug abuse patient.[facility]In the event this information is protected by the Federal Confidentiality of Alcohol and Drug Abuse Patient Records regulations: The Federal rules restrict any use of the information to criminally investigate or prosecute any alcohol or drug abuse patient.[facility] HospitalIn the event this information is protected by the Federal Confidentiality of Alcohol and Drug Abuse Patient Records regulations: The Federal rules restrict any use of the information to criminally investigate or prosecute any alcohol or drug abuse patient.[facility] the event this information is protected by the Federal Confidentiality of Alcohol and Drug Abuse Patient Records regulations: The Federal rules restrict any use of the information to criminally investigate or prosecute any alcohol or drug abuse patient.[facility] HospitalIn the event this information is protected by the Federal Confidentiality of Alcohol and Drug Abuse Patient Records regulations: The Federal rules restrict any use of the information to criminally investigate or prosecute any alcohol or drug abuse patient.[facility]In the event this information is protected by the Federal Confidentiality of Alcohol and Drug Abuse Patient Records regulations: The Federal rules restrict any use of the information to criminally investigate or prosecute any alcohol or drug abuse patient.[facility] HospitalIn the event this information is protected by the Federal Confidentiality of Alcohol and Drug Abuse Patient Records regulations: The Federal rules restrict any use of the information to criminally investigate or prosecute any alcohol or drug abuse patient.[facility] HospitalIn the event this information is protected by the Federal Confidentiality of Alcohol and Drug Abuse Patient Records regulations: The Federal rules restrict any use of the information to criminally investigate or prosecute any alcohol or drug abuse patient.[facility]In the event this information is protected by the Federal Confidentiality of Alcohol and Drug Abuse Patient Records regulations: The Federal rules restrict any use of the information to criminally investigate or prosecute any alcohol or drug abuse patient.[facility] HospitalIn the event this information is protected by the Federal Confidentiality of Alcohol and Drug Abuse Patient Records regulations: The Federal rules restrict any use of the information to criminally investigate or prosecute any alcohol or drug abuse patient.[facility] HospitalIn the event this information is protected by the Federal Confidentiality of Alcohol and Drug Abuse Patient Records regulations: The Federal rules restrict any use of the information to criminally investigate or prosecute any alcohol or drug abuse patient.[facility] HospitalIn the event this information is protected by the Federal Confidentiality of Alcohol and Drug Abuse Patient Records regulations: The Federal rules restrict any use of the information to criminally investigate or prosecute any alcohol or drug abuse patient.[facility] HospitalIn the event this information is protected by the Federal Confidentiality of Alcohol and Drug Abuse Patient Records regulations: The Federal rules restrict any use of the information to criminally investigate or prosecute any alcohol or drug abuse patient.[facility] HospitalIn the event this information is protected by the Federal Confidentiality of Alcohol and Drug Abuse Patient Records regulations: The Federal rules restrict any use of the information to criminally investigate or prosecute any alcohol or drug abuse patient.[facility] HospitalIn the event this information is protected by the Federal Confidentiality of Alcohol and Drug Abuse Patient Records regulations: The Federal rules restrict any use of the information to criminally investigate or prosecute any alcohol or drug abuse patient.[facility] Reason for Visit (unrecogniz ed section and content) Reason Comments Ear Problem ears feel clogged an d dizziness x 1 week Reason Comments Cough vomiting, SOB x this AM Reason Comments Dizziness Back Pain L left side back x 2 days Reason Comments Patient Update Reason Comments Spirometry Specialty Diagnoses / Procedures Referred By Contmichelet t Referred To [facility] Diagnoses COVID-19 Stage 3 severe COPD by GOLD classification (HCC) Procedures OXIMETRY WITH AMBULATION NONINVASIVE EAR/PULSE OXIMETRY MULTIPLE DETER Luna Swartz, ROMERO [address] [address] [facility] [place] [address] [place] [address] Referral ID Status Reason Start Date Expiration Date V isits Requested Visits Authorized [id number] Closed Financial Clearance Not Required 01/21/2022 07/03/2022 1 1 Reason Comments Established Patient COPD Reason Comments Orders Reason Comments 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 Date Comments F/U 6 months Immunizations 05/03/2022 Flu vaccination Specialty Diagnoses / Procedures Referred By Bobby Referred To Contact Internal Medicine / INTERNAL MEDICINE Diagnoses 6 month follow up Procedures 4C EST Julio Draper MD [address] [place] [id number] Julio Draper MD [address] [place] [id number] Referral ID Status Reason Start Date Expiration Date Visits Re quested Visits Authorized [id number] Closed 05/03/2022 07/03/2022 1 1 Reason Onset [...] WO IVCON DIAGNOSTIC COMPUTED TOMOGRAPHY THORAX W/O Luna Cantrell PA-C [address] [facility] [address] Ct Imaging [id number] Referral ID Status Reason Start Date Expiration Date V isits Requested Visits Authorized [id number] Closed Auto-Generate d Referral 05/25/2022 07/03/2022 [address] Specialty Diagnoses / Procedures [facility] Diagnoses Lung nodules Centrilobular emphysema (HCC) Former cigarette smoker Procedures CT CHEST WO IVCON DIAGNOSTIC COMPUTED TOMOGRAPHY THORAX W/O Magali Francis MD [address] [facility] [place] [address] [place] [address] Referral ID Status Reason Start Date Expiration Date V isits Requested Visits Authorized [id number] Closed Auto-Generate d Referral 05/31/2023 06/30/2023 [address] scan results/ Darlene n Reason Comments [facility] agree to follow Reason Comments Care Home Plan of Care Reason Comments Appointment Hospital f/u appt/ Reason Comments Appointment Reason Comments Forms Reason Comments Orders Patient Update Reason Comments Home Health update Reason Comments physical therapy plan of care Reason Comments Patient Update [facility] update / verbal order request Reason Comments OT plan of care Reason Comments Follow Up Phone Call Call back, not conv enient at this time Reason Comments Hospital F/U Reason Comments Results Reason Onset Date Comments Transition Of Care 08/22/2023 [facility] Pharmacy- Hospital discharge 08/19/23 Reason Comments Patient Update Medication Problem Home health orders Reason Onset Date Comments Refill Request 09/19/2023 Reason Onset Date Comments Refill Request 09/23/2023 Reason Onset Date Comments colorectal cancer screening 10/10/2023 Reason Comments Cough Specialty Diagnoses / Procedures [facility] Diagnoses Lung nodules Procedures CT CHEST WO IVCON DIAGNOSTIC COMPUTED TOMOGRAPHY THORAX W/O Magali Francis MD [address] [facility] [place] [address] Ct Imaging [id number] Referral ID Status Reason Start Date Expiration Date V isits Requested Visits Authorized [id number] Closed Auto-Generate d Referral 10/24/2023 07/03/2024 1 1 Reason Comments Established Patient Reason Comments Yearly Exam Reason Onset Date Comments Refill Request 12/16/2023 Reason Comments Release Point form Reason Comments Rectal Bleeding Reason Comments Medication Problem Reason Comments disability forms from [employer] Specialty Diagnoses / Procedures Referred By Chunac t Referred To Contact Radiology / [facility] Diagnoses Dx: Multiple duodenal ulcers [K26.9]; Parapneumonic effusion [J18.9, J91.8 Procedures XR CHEST Julio Draper MD [address] [place] [address] [facility] [address] [place] [address] Referral ID Status Reason Start Date Expiration Date Visits Re quested Visits Authorized [id number] Closed 06/30/2023 07/03/2023 1 1 Reason Onset Date Comments Refill Request 03/17/2024 Specialty Diagnoses / Procedures Referred By Chunac t Referred To Contact Radiology / [facility] Diagnoses Wellness examination ML Procedures RADIOLOGIC EXAM CHEST 2 VIEWS XR CHEST Magali Nieves MD [address] [place] [address] [facility] [address] [place] [address] Referral ID Status Reason Start Date Expiration Date Visits Re quested Visits Authorized [id number] Closed 01/07/2023 04/07/2023 1 1 Specialty Diagnoses / Procedures Referred By Chunac t Referred To Contact Radiology / [facility] Diagnoses COPD with exacerbation (HCC) 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 Procedures XR CHEST Jessie Hurley APRN.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 [address] [place] [address] [facility] [address] [place] [address] Referral ID Status Reason Start Date Expiration Date Visits Re quested Visits Authorized [id number] Closed 11/11/2022 07/03/2023 1 1 Specialty Diagnoses / Procedures Referred By Contac t Referred To Contact Radiology / [facility] Diagnoses xr chest rm 1 Procedures XR CHEST Rachel Mayo, WHITNEY.[employer] C[employer]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 [address] [place] [address] [facility] [address] [place] [address] Referral ID Status Reason Start Date Expiration Date Visits Re quested Visits Authorized [id number] Closed 11/02/2021 11/02/2021 1 1 Reason Comments ER F/U Reason Comments Patient Update Breathing Problem Reason Comments concern with crackling lungs/SOB Specialty Diagnoses / Procedures Referred By Contac t Referred To Contact CT IMAGING Diagnoses Lung nodules Procedures CT CHEST WO IVCON DIAGNOSTIC COMPUTED TOMOGRAPHY THORAX W/O CNTRST Luna Swartz PA-C [address] [facility] [place] [address] [place] [address] Referral ID Status Reason Start Date Expiration Date V isits Requested Visits Authorized [id number] Closed Auto-Generate d Referral 05/10/2024 12/07/2024 1 1 Reason Comments Recheck 6 months Reason Comments Established Patient COPD Specialty Diagnoses / Procedures Referred By Contac t Referred To Contact Diagnoses Chronic obstructive pulmonary disease, unspecified (HCC) Procedures OXYGEN CONCENTRATOR PORTABLE OXYGEN CONCENTRATOR Magali Nieves MD [address] [place] [address] Magali Nieves MD [address] [place] [address] Referral ID Status Reason Start Date Expiration Date Visits Re quested Visits Authorized [id number] Closed 05/11/2023 05/11/2024 1 1 Reason Onset Date Comments Refill Request 06/15/2024 Reason Comments Breathing Problem Reason Comments Home Health Orders Reason Comments Home Care Management Nursing plan of car e Reason Comments Hospital F/U Reason Comments [facility], nursing plan of care Reason Comments Transition Of Care Reason Onset Date Comments Refill Request 08/03/2024 Reason Comments Patient Update Patient Question Reason Comments Home Health Nursing-Plan Update Reason Comments COPD Reason Comments FYI-No Action Needed home health recert Reason Comments right shoulder pain Reason Comments ER F/U Reason Comments Referral Update Reason Comments Forms Disability forms fro m [employer] Reason Comments Home Health Nursing Update Reason Comments Breathing difficulties Reason Comments Breast Problem Reason Onset Date Comments Refill Request 11/01/2024 Specialty Diagnoses / Procedures Referred By Bobby t Referred To Contact CT IMAGING Diagnoses Ground glass opacity present on imaging of lung Procedures CT CHEST WO IVCON DIAGNOSTIC COMPUTED TOMOGRAPHY THORAX W/O Magali Francis MD [address] [place] [address] Phone: tel: fax: [place] [address] Referral ID Status Reason Start Date Expiration Date V isits Requested Visits Authorized [id number] Closed Auto-Generate d Referral 11/05/2024 07/07/2025 1 1 Reason Comments F/U 6 months Reason Comments Established Patient 6 month follow up [place] Reason Comments Results Reason Comments Patient Question O2 monitor results Care Teams (unrecognized sec tion and content) Fashion Show Director Relationship Specialty Start Date End Date Julio Draper MD [address] [place], [place] [id number] PCP - General Internal Medicine 07/15/15 Fashion Show Director Relationship Specialty Start Date End Date Julio Draper MD [address] [place], [place] [id number] PCP - General Internal Medicine 07/15/15 Fashion Show Director Relationship Specialty Start Date End Date Julio Draper MD [address] [place], [place] [id number] PCP - General Internal Medicine 07/15/15 Fashion Show Director Relationship Specialty Start Date End Date Julio Draper MD [address] [facility] [place] [address] PCP - General Internal Medicine 07/15/15 Fashion Show Director Relationship Specialty Start Date End Date Julio Draper MD [address] [place] [address] PCP - General Internal Medicine 07/15/15 Fashion Show Director Relationship Specialty Start Date End Date Julio Draper MD [address] [place] [address] PCP - General Internal Medicine 07/15/15 Fashion Show Director Relationship Specialty Start Date End Date Julio Draper MD [address] [place] [address] PCP - General Internal Medicine 07/15/15 Fashion Show Director Relationship Specialty Start Date End Date Julio Draper MD [address] [place] [address] PCP - General Internal Medicine 07/15/15 Fashion Show Director Relationship Specialty Start Date End Date Julio Draper MD [address] [place] [address] PCP - General Internal Medicine 07/15/15 Fashion Show Director Relationship Specialty Start Date End Date Julio Draper MD [address] [place] [address] PCP - General Internal Medicine 07/15/15 Fashion Show Director Relationship Specialty Start Date End Date Julio Draper MD [address] [place] [address] PCP - General Internal Medicine 07/15/15 Fashion Show Director Relationship Specialty Start Date End Date Julio Draper MD [address] [place] [address] PCP - General Internal Medicine 07/15/15 Fashion Show Director Relationship Specialty Start Date End Date Julio Draper MD [address] [place] [address] PCP - General Internal Medicine 07/15/15 Fashion Show Director Relationship Specialty Start Date End Date Julio Draper MD [address] [place] [address] PCP - General Internal Medicine 07/15/15 Fashion Show Director Relationship Specialty Start Date End Date Julio Draper MD [address] [place] [address] PCP - General Internal Medicine 07/15/15 Fashion Show Director Relationship Specialty Start Date End Date Julio Draper MD [address] [place] [address] PCP - General Internal Medicine 07/15/15 Fashion Show Director Relationship Specialty Start Date End Date Julio rDaper MD [address] [place] [address] PCP - General Internal Medicine 07/15/15 Team Status: Active Member Role Status Dates Dr. Julio Draper MD Family Provider Active Dr. Julio Draper MD Primary Care Provider Active Team Status: Inactive Member Role Status Dates Dr. Julio Draper MD Primary Care Provider Active Dr. Jaime Perdomo DO Emergency Provider Active Fashion Show Director Relationship Specialty Start Date End Date Julio Draper MD [address] [place] [address] PCP - General Internal Medicine 07/15/15 Team Status: Active Member Role Status Dates Dr. Julio rDaper MD Primary Care Provider Active Dr. Zach Thomas MD Emergency Provider Active Dr. January Perez DO Admit Provider, Attending Provide r Active Team Status: Active Member Role Status Dates Dr. Julio Draper MD Primary Care Provider Active Dr. Zach Thomas MD Emergency Provider Active Dr. January Perez , Admit Provider, Other Provider Ac tive Dr. Yemi Celaya MD Attending Provider, Other Provi dwight Active Team Status: Inactive Member Role Status Dates Dr. Julio Draper MD Primary Care Provider Active Dr. Jaime Perdomo DO Attending Provider, Emergency Provider Active Team Status: Inactive Member Role Status Dates Dr. Julio Draper MD Primary Care Provider Active Dr. Zach Thomas MD Emergency Provider Active Dr. January Perez DO Admit Provider, Other Provider Ac tive Dr. Mihai Izaguirre MD Attending Provider Active Dr. Yemi Celaya MD Other Provider Active Fashion Show Director Relationship Specialty Start Date End Date Julio Draper MD [address] [place] [address] PCP - General Internal Medicine 07/15/15 Fashion Show Director Relationship Specialty Start Date End Date Julio Draper MD [address] [place] [address] PCP - General Internal Medicine 07/15/15 Fashion Show Director Relationship Specialty Start Date End Date Julio Draper MD [address] [place] [address] PCP - General Internal Medicine 07/15/15 Fashion Show Director Relationship Specialty Start Date End Date Julio Draper MD [address] [place] [address] PCP - General Internal Medicine 07/15/15 Fashion Show Director Relationship Specialty Start Date End Date Julio Draper MD [address] [place] [address] PCP - General Internal Medicine 07/15/15 Fashion Show Director Relationship Specialty Start Date End Date Julio Draper MD [address] [place] [address] PCP - General Internal Medicine 07/15/15 Fashion Show Director Relationship Specialty Start Date End Date Julio Draper MD [address] [place] [address] PCP - General Internal Medicine 07/15/15 Team Status: Active Member Role Status Dates Dr. Julio Draper MD Primary Care Provider Active Dr. Hoang Foster , Emergency Provider Active Team Status: Active Member Role Status Dates Dr. Julio Draper MD Primary Care Provider Active Dr. Mikael Swartz MD Emergency Provider Active Dr. Gabby Sutherland MD Admit Provider, Attending Prov ider Active Dr. Kapil Doyle MD Other Provider Active Dr. Adrian Nieves , Other Provider Active Dr. Pao Weeks MD Other Provider Active Dr. Ford Graff MD Other Provider Active Sheridan Jovel SASH CLAMP OPERATOR, SASH CLAMP OPERATOR-C Other Provider Active Team Status: Active Member Role Status Dates Dr. Julio Draper MD Primary Care Provider Active Dr. Mikael Swartz MD Emergency Provider Active Dr. Gabby Sutherland MD Admit Provider, Other Provider Active Dr. Kapil Doyle MD Other Provider Active Dr. Adrian Nieves , Attending Provider, Other Provide r Active Dr. Pao Weeks MD Other Provider Active Dr. Ford Graff MD Other Provider Active Sheridan Jovel SASH CLAMP OPERATOR, SASH CLAMP OPERATOR-C Other Provider Active Team Status: Active Member Role Status Dates Dr. Julio Draper MD Primary Care Provider Active Dr. Mikael Swartz MD Emergency Provider Active Dr. Gabby Sutherland MD Admit Provider, Attending Provider, Other Provider Active Dr. Kapil Doyle MD Other Provider Active Dr. Adrian Nieves , Other Provider Active Dr. Pao Weeks MD Other Provider Active Dr. Ford Graff MD Other Provider Active Sheridan Jovel SASH CLAMP OPERATOR, SASH CLAMP OPERATOR-C Other Provider Active Team Status: Active Member Role Status Dates Dr. Julio Draper MD Primary Care Provider Active Dr. Alan Riddle MD Attending Provider Active Team Status: Inactive Member Role Status Dates Dr. Julio Draper MD Primary Care Provider Active Dr. Hoang Foster , Attending Provider, Emergency Pr ovider Active Team Status: Active Member Role Status Dates Dr. Julio Draper MD Primary Care Provider Active Dr. Mikael Swartz MD Emergency Provider Active Dr. Gabby Sutherland MD Admit Provider, Other Provider Active Dr. Kapil Doyle MD Other Provider Active Dr. Adrian Nieves , Other Provider Active Dr. Pao Weeks MD Attending Provider, Other Provi dwight Active Dr. Ford Graff MD Other Provider Active Sheridan Jovel SASH CLAMP OPERATOR, SASH CLAMP OPERATOR-C Other Provider Active Team Status: Active Member Role Status Dr. Julio Draper MD Primary Care Provider Active Dr. Mikael Swartz MD Emergency Provider Active Dr. Gabby Sutherland MD Admit Provider, Other Provider Active Dr. Kapil Doyle MD Other Provider Active Dr. Adrian Nieves , DO Other Provider Active Dr. Pao Weeks MD Attending Provider, Other Provi dwight Active Dr. Ford Graff MD Other Provider Active Sheridna Jovel SASH CLAMP OPERATOR, SASH CLAMP OPERATOR-C Other Provider Active Dr. Td Pillai , Other Provider Active Team Status: Active Member Role Status Dr. Julio Draper MD Primary Care Provider Active Dr. Mikael Swartz MD Emergency Provider Active Dr. Gabby Sutherland MD Admit Provider, Other Provider Active Dr. Kpail Doyle MD Other Provider Active Dr. Adrian Nieves , DO Other Provider Active Dr. Pao Weeks MD Other Provider Active Dr. Ford Graff MD Other Provider Active Sheridan Jovel SASH CLAMP OPERATOR, SASH CLAMP OPERATOR-C Other Provider Active Dr. Td Pillai , Attending Provider, Other Pro vider Active Team Status: Active Member Role Status Dr. Julio Draper MD Primary Care Provider Active Dr. Mikael Swartz MD Emergency Provider Active Dr. Gabby Sutherland MD Admit Provider, Other Provider Active Dr. Kapil Doyle MD Other Provider Active Dr. Adrian Nieves , DO Other Provider Active Dr. Pao Weeks MD Other Provider Active Dr. Ford Graff MD Other Provider Active Sheridan Jovel SASH CLAMP OPERATOR, SASH CLAMP OPERATOR-C Other Provider Active Dr. Td Pillai , DO Other Provider Active Dr. Ramon Antunez , DO Attending Provider Active Team Status: Active Member Role Status Dates Dr. Julio Draper MD Primary Care Provider Active Dr. Ramon Antunez , DO Attending Provider Active Team Status: Active Member Role Status Dates Dr. Julio Draper MD Primary Care Provider Active Dr. Mikael Swartz MD Emergency Provider Active Dr. Gabby Sutherland MD Admit Provider, Other Provider Active Dr. Kapil Doyle MD Attending Provider, Other Provid er Active Dr. Adrian Nieves , DO Other Provider Active Dr. Pao Weeks MD Other Provider Active Dr. Ford Graff MD Other Provider Active Sheridan Jovel SASH CLAMP OPERATOR, SASH CLAMP OPERATOR-C Other Provider Active Dr. Td Pillai , DO Other Provider Active Team Status: Active Member Role Status Dates Dr. Julio Draper MD Primary Care Provider Active Dr. Mikael Swartz MD Emergency Provider Active Dr. Gabby Sutherland MD Admit Provider, Other Provider Active Dr. Robel Funk , DO Other Provider Active Dr. Td Pillai , DO Other Provider Active Ingrid Ruffin NP-C Attending Provider Active Team Status: Active Member Role Status Dates Dr. Julio Draper MD Primary Care Provider Active Dr. Mikael Swartz MD Emergency Provider Active Dr. Gabby Sutherland MD Admit Provider, Other Provider Active Dr. Robel Funk , DO Attending Provider, Other Provider Active Dr. Td Pillai , DO Other Provider Active Team Status: Active Member Role Status Dates Dr. Julio Draper MD Primary Care Provider Active Dr. Alayna Salazar MD Attending Provider Active Dr. Adrian Nieves , Referring Provider Active Team Status: Active Member Role Status Dates Dr. Julio Draper MD Primary Care Provider Active Dr. Alayna Salazar MD Attending Provider Active Dr. Gabby Sutherland MD Referring Provider Active Team Status: Inactive Member Role Status Dates Dr. Julio Draper MD Primary Care Provider Active Dr. Mikael Swartz MD Emergency Provider Active Dr. Gabby Sutherland MD Admit Provider, Other Provider Active Dr. Robel Funk , DO Attending Provider Active Dr. Td Pillai , DO Other Provider Active Team Status: Active Member Role Status Dates Dr. Julio Draper MD Primary Care Provider Active Guido Oliveira MD Emergency Provider Active Dr. Edis Mayo MD Admit Provider, Attending Provid er Active Team Status: Active Member Role Status Dates Dr. Julio Draper MD Primary Care Provider Active Dr. Mikael Swartz MD Emergency Provider Active Dr. Gabby Sutherland MD Admit Provider, Other Provider Active Dr. Kapil Doyle MD Other Provider Active Dr. Adrian Nieves DO Attending Provider, Other Provide r Active Dr. Pao Weeks MD Other Provider Active Dr. Ford Graff MD Other Provider Active Sheridan Jovel SASH CLAMP OPERATOR, SASH CLAMP OPERATOR-C Other Provider Active Dr. Robel Funk DO Referring Provider Active Team Status: Active Member Role Status Dates Dr. Julio Draper MD Primary Care Provider Active Guido Oliveira MD Emergency Provider Active Dr. Edis Mayo MD Admit Provider, At tending Provider, Other Provider Active Team Status: Active Member Role Status Dates Dr. Julio Draper MD Primary Care Provider Active Guido Oliveira MD Emergency Provider Active Dr. Edis Mayo MD Admit Provider, Other Provider A ctive Dr. Td Pillai , Other Provider Active Dr. Ramon Antunez , DO Attending Provider Active Team Status: Active Member Role Status Dates Dr. Julio Draper MD Primary Care Provider Active Guido Oliveira MD Emergency Provider Active Dr. Edis Mayo MD Admit Provider, Other Provider A ctive Dr. Td Pillai , Attending Provider, Other Pro vider Active Team Status: Active Member Role Status Dates Dr. Julio Draper MD Primary Care Provider Active Guido Oliveira MD Emergency Provider Active Dr. Edis Mayo MD Admit Provider, Other Provider A ctive Dr. Yemi Celaya MD Attending Provider, Other Provi dwight Active Dr. Td Pillai , Other Provider Active Team Status: Inactive Member Role Status Dates Dr. Julio Draper MD Primary Care Provider Active Guido Oliveira MD Emergency Provider Active Dr. Edis Mayo MD Admit Provider, Other Provider A ctive Dr. Yemi Celaya MD Attending Provider Active Dr. Td Pillai , Other Provider Active Team Status: Active Member Role Status Dates Dr. Julio Draper MD Primary Care Provider Active Dr. Mikael Swartz MD Emergency Provider Active Dr. Gabby Sutherland MD Admit Provider, Other Provider Active Dr. Kapil Doyle MD Other Provider Active Dr. Adrian Nieves , DO Other Provider Active Dr. Pao Weeks MD Attending Provider, Other Provi dwight Active Dr. Ford Graff MD Other Provider Active Sheridan Jovel SASH CLAMP OPERATOR, SASH CLAMP OPERATOR-C Other Provider Active Dr. Robel Funk , DO Referring Provider Active Team Status: Active Member Role Status Dates Dr. Julio Draper MD Primary Care Provider Active Dr. Mikael Swartz MD Emergency Provider Active Dr. Gabby Sutherland MD Admit Provider, Other Provider Active Dr. Kapil Doyle MD Other Provider Active Dr. Adrian Nieves , DO Other Provider Active Dr. Pao Weeks MD Attending Provider, Other Provi dwight Active Dr. Ford Graff MD Other Provider Active Sheridan Jovel SASH CLAMP OPERATOR, SASH CLAMP OPERATOR-C Other Provider Active Dr. Td Pillai , DO Other Provider Active Dr. Robel Funk , DO Referring Provider Active Team Status: Active Member Role Status Dates Dr. Julio Draper MD Primary Care Provider Active Dr. Mikael Swartz MD Emergency Provider Active Dr. Gabby Sutherland MD Admit Provider, Other Provider Active Dr. Kapil Doyle MD Other Provider Active Dr. Adrian Nieves , DO Other Provider Active Dr. Pao Weeks MD Other Provider Active Dr. Ford Graff MD Other Provider Active Sheridan Jovel SASH CLAMP OPERATOR, SASH CLAMP OPERATOR-C Other Provider Active Dr. Td Pillai , DO Other Provider Active Dr. Ramon Antunez , DO Attending Provider Active Dr. Robel Funk , DO Referring Provider Active Team Status: Active Member Role Status Dates Dr. Julio Draper MD Primary Care Provider Active Dr. Ramon Antunez , DO Attending Provider Active Dr. Robel Funk , DO Referring Provider Active Team Status: Active Member Role Status Dates Dr. Julio Draper MD Primary Care Provider Active Dr. Mikael Swartz MD Emergency Provider Active Dr. Gabby Sutherland MD Admit Provider, Other Provider Active Dr. Kapil Doyle MD Attending Provider, Other Provid er Active Dr. Adrian Nieves , DO Other Provider Active Dr. Pao Weeks MD Other Provider Active Dr. Ford Graff MD Other Provider Active Sheridan Jovel SASH CLAMP OPERATOR, SASH CLAMP OPERATOR-C Other Provider Active Dr. Td Pillai , DO Other Provider Active Dr. Robel Funk , DO Referring Provider Active Team Status: Active Member Role Status Dates Dr. Julio Draper MD Primary Care Provider Active Guido Oliveira MD Emergency Provider Active Dr. Edis Mayo MD Admit Provider, Other Provider A ctive Dr. Yemi Celaya MD Other Provider Active Dr. Td Pillai , DO Other Provider Active Dr. Ramon Antunez , DO Attending Provider Active Team Status: Active Member Role Status Dates Dr. Julio Draper MD Primary Care Provider Active Dr. Zach Thomas MD Emergency Provider Active Ingrid Ruffin NP-C Attending Provider Active Team Status: Active Member Role Status Dates Dr. Julio Draper MD Primary Care Provider Active Dr. Zach Thomas MD Emergency Provider Active Dr. Diana Santillan MD Admit Provider, Attending Provid er Active Team Status: Active Member Role Status Dates Dr. Julio Draper MD Primary Care Provider Active Dr. Zach Thomas MD Emergency Provider Active Dr. Diana Santillan MD Admit Provider, Other Provider A ctive Dr. Kapil Doyle MD Other Provider Active Dr. Adrian Nieves , Other Provider Active Dr. Pao Weeks MD Other Provider Active Dr. Chris Shepard MD Other Provider Active Dr. Ford Graff MD Other Provider Active Sheridan Jovel SASH CLAMP OPERATOR, SASH CLAMP OPERATOR-C Other Provider Active Dr. Edis Mayo MD Attending Provider, Other Provid er Active Team Status: Active Member Role Status Dates Dr. Julio Draper MD Primary Care Provider Active Dr. Zach Thomas MD Emergency Provider Active Dr. Diana Santillan MD Admit Provider, Other Provider A ctive Dr. Kapil Doyle MD Other Provider Active Dr. Adrian Nieves , Other Provider Active Dr. Pao Weeks MD Attending Provider, Other Provi dwight Active Dr. Chris Shepard MD Other Provider Active Dr. Ford Graff MD Other Provider Active Sheridan Jovel SASH CLAMP OPERATOR, SASH CLAMP OPERATOR-C Other Provider Active Dr. Edis Mayo MD Other Provider Active Team Status: Inactive Member Role Status Dates Dr. Julio Draper MD Primary Care Provider Active Dr. Zach Thomas MD Emergency Provider Active Dr. Diana Santillan MD Admit Provider, Other Provider A ctive Dr. Kapil Doyle MD Other Provider Active Dr. Adrian Nieves , Other Provider Active Dr. Pao Weeks MD Other Provider Active Dr. Chris Shepard MD Other Provider Active Dr. Ford Graff MD Other Provider Active Sheridan Jovel SASH CLAMP OPERATOR, SASH CLAMP OPERATOR-C Other Provider Active Dr. Edis Mayo MD Attending Provider Active Fashion Show Director Relationship Specialty Start Date End Date Julio Draper MD [address] [place] [address] PCP - General Internal Medicine 07/15/15 Fashion Show Director Relationship Specialty Start Date End Date Julio Draper MD [address] [place] [address] PCP - General Internal Medicine 07/15/15 Fashion Show Director Relationship Specialty Start Date End Date Julio Draper MD [address] [place] [address] PCP - General Internal Medicine 07/15/15 Fashion Show Director Relationship Specialty Start Date End Date Julio Draper MD [address] [place] [address] PCP - General Internal Medicine 07/15/15 Fashion Show Director Relationship Specialty Start Date End Date Julio Draper MD [address] [place] [address] PCP - General Internal Medicine 07/15/15 Fashion Show Director Relationship Specialty Start Date End Date Julio Draper MD [address] [place] [address] PCP - General Internal Medicine 07/15/15 Fashion Show Director Relationship Specialty Start Date End Date Julio Draper MD [address] [facility] [place] [address] PCP - General Internal Medicine 07/15/15 Fashion Show Director Relationship Specialty Start Date End Date Julio Draper MD [address] [facility] [place] [address] PCP - General Internal Medicine 07/15/15 Fashion Show Director Relationship Specialty Start Date End Date Julio Draper MD [address] [facility] [place] [address] PCP - General Internal Medicine 07/15/15 Fashion Show Director Relationship Specialty Start Date End Date Julio Draper MD [address] [place] [address] PCP - General Internal Medicine 07/15/15 Fashion Show Director Relationship Specialty Start Date End Date Julio Draper MD [address] [place] [address] PCP - General Internal Medicine 07/15/15 Team Status: Active Member Role Status Dates Dr. Julio Draper MD Primary Care Provider Active Dr. Ramon Antunez , Attending Provider Active Dr. Eids Mayo MD Referring Provider Active Team Status: Active Member Role Status Dates Dr. Julio Draper MD Primary Care Provider Active Guido Oliveira MD Emergency Provider Active Dr. Edsi Mayo MD Admit Provider, Paulette bennett Provider, Other Provider Active Dr. Td Pillai DO Other Provider Active Dr. Ramon Antunez , Attending Provider Active Team Status: Active Member Role Status Dates Dr. Julio Draper MD Primary Care Provider Active Guido Oliveira MD Emergency Provider Active Dr. Edis Mayo MD Admit Provider, Other Provider A ctive Dr. Td Pillai , DO Other Provider Active Dr. Ramon Antunez , DO Attending Provider Active Dr. Yemi Celaya MD Referring Provider Active Team Status: Active Member Role Status Dates Dr. Julio Draper MD Primary Care Provider Active Guido Oliveira MD Emergency Provider Active Dr. Edis Mayo MD Admit Provider, Other Provider A ctive Dr. Yemi Celaya MD Referring Provider, Other Provi dwight Active Dr. Td Pillai , DO Other Provider Active Dr. Ramon Antunez , DO Attending Provider Active Team Status: Active Member Role Status Dates Dr. Julio Draper MD Primary Care Provider Active Dr. Zach Thomas MD Emergency Provider Active Dr. Diana Santillan MD Admit Provider, Other Provider A ctive Dr. Kapil Doyle MD Other Provider Active Dr. Adrian Nieves , DO Other Provider Active Dr. Pao Weeks MD Attending Provider, Other Provi dwight Active Dr. Chris Shepard MD Other Provider Active Dr. Ford Graff MD Other Provider Active Sheridan Jovel SASH CLAMP OPERATOR, SASH CLAMP OPERATOR-C Other Provider Active Dr. Edis Mayo MD Referring Provider, Other Provid er Active Team Status: Active Member Role Status Dates Dr. Julio Draper MD Primary Care Provider Active Dr. Alan Riddle MD Attending Provider Active Dr. Edis Donovan , Referring Provider Active Team Status: Active Member Role Status Dates Dr. Julio Draper MD Primary Care Provider Active Dr. Alan Riddle MD Attending Provider, Referring Pro vider Active Team Status: Inactive Member Role Status Dates Dr. Julio Draper MD Primary Care P rogissell, Attending Provider, Referring Provider Active Fashion Show Director Relationship Specialty Start Date End Date Julio Draper MD [address] [place] [address] PCP - General Internal Medicine 07/15/15 Fashion Show Director Relationship Specialty Start Date End Date Julio Draper MD [address] [place] [address] PCP - General Internal Medicine 07/15/15 Fashion Show Director Relationship Specialty Start Date End Date Julio Draper MD [address] [facility] [place] [address] PCP - General Internal Medicine 07/15/15 Fashion Show Director Relationship Specialty Start Date End Date Julio Draper MD [address] [place] [address] PCP - General Internal Medicine 07/15/15 Fashion Show Director Relationship Specialty Start Date End Date Julio Draper MD [address] [place] [address] PCP - General Internal Medicine 07/15/15 Fashion Show Director Relationship Specialty Start Date End Date Julio Draper MD [address] [place] [address] PCP - General Internal Medicine 07/15/15 Fashion Show Director Relationship Specialty Start Date End Date Julio Draper MD [address] [place] [address] PCP - General Internal Medicine 07/15/15 Fashion Show Director Relationship Specialty Start Date End Date Julio Draper MD [address] [place] [address] PCP - General Internal Medicine 07/15/15 Fashion Show Director Relationship Specialty Start Date End Date Julio Draper MD [address] [place] [address] PCP - General Internal Medicine 07/15/15 Fashion Show Director Relationship Specialty Start Date End Date Julio Draper MD [address] [place] [address] PCP - General Internal Medicine 07/15/15 Fashion Show Director Relationship Specialty Start Date End Date Julio Draper MD [address] [place] [address] PCP - General Internal Medicine 07/15/15 Fashion Show Director Relationship Specialty Start Date End Date Julio Draper MD [address] [place] [address] PCP - General Internal Medicine 07/15/15 Fashion Show Director Relationship Specialty Start Date End Date Julio Draper MD [address] [facility] [place] [address] PCP - General Internal Medicine 07/15/15 Fashion Show Director Relationship Specialty Start Date End Date Julio Draper MD [address] [place] [address] PCP - General Internal Medicine 07/15/15 Fashion Show Director Relationship Specialty Start Date End Date Julio Draper MD [address] [place] [address] PCP - General Internal Medicine 07/15/15 Fashion Show Director Relationship Specialty Start Date End Date Julio Draper MD [address] [place] [address] PCP - General Internal Medicine 07/15/15 Fashion Show Director Relationship Specialty Start Date End Date Julio Draper MD [address] [place] [address] PCP - General Internal Medicine 07/15/15 Magali Nieves MD [address] [place] [address] 02/27/24 Fashion Show Director Relationship Specialty Start Date End Date Julio Draper MD [address] [place], [place] [address] PCP - General Internal Medicine 07/15/15 Fashion Show Director Relationship Specialty Start Date End Date Julio Draper MD [address] [place], [place] [address] PCP - General Internal Medicine 07/15/15 Fashion Show Director Relationship Specialty Start Date End Date Julio Draper MD [address] [place], [place] [address]791 PCP - General Internal Medicine 07/15/15 Magali Nieves MD [address] [place] [address] 02/27/24 Fashion Show Director Relationship Specialty Start Date End Date Julio Draper MD [address] [place] [address] PCP - General Internal Medicine 07/15/15 Fashion Show Director Relationship Specialty Start Date End Date Julio Draper MD [address] [place], [place] [id number] PCP - General Internal Medicine 07/15/15 Fashion Show Director Relationship Specialty Start Date End Date Julio Draper MD [address] [place], [place] [address] PCP - General Internal Medicine 07/15/15 Magali Nieves MD [address] [place] [address] 02/27/24 Fashion Show Director Relationship Specialty Start Date End Date Julio Draper MD [address] [place], [place] [address] PCP - General Internal Medicine 07/15/15 [place] [address] [place] [phone] 02/27/24 Fashion Show Director Relationship Specialty Start Date End Date Julio Draper MD [address] [place] [address] PCP - General Internal Medicine 07/15/15 Magali Nieves MD [address] [place] [phone] 02/27/24 Fashion Show Director Relationship Specialty Start Date End Date Julio Draper MD [address] [place], [place] [address]33781 PCP - General Internal Medicine 07/15/15 Magali Nieves MD [address] [place] [address] 02/27/24 Fashion Show Director Relationship Specialty Start Date End Date Julio Draper MD [address] [place] [address] PCP - General Internal Medicine 07/15/15 Magali Nieves MD [address] [place] [address] 02/27/24 Fashion Show Director Relationship Specialty Start Date End Date Julio Draper MD [address] [place], [place] 1376[address] PCP - General Internal Medicine 07/15/15 Magali Nieves MD [address] [place] [address] 02/27/24 Tasha Laureano, FRONT END MECHANIC.[employer]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 [address] [place], [place] [address] Cosmetology Teacher Internal Medicine 06/11/24 Fashion Show Director Relationship Specialty Start Date End Date Julio Draper MD [address] [place], [place] [address] PCP - General Internal Medicine 07/15/15 Magali Nieves MD [address] [place] [address] 02/27/24 Tasha Laureano, FRONT END MECHANIC.[employer] CERTIF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 [address] [place], [place] [address] Cosmetology Teacher Internal Medicine 06/11/24 Fashion Show Director Relationship Specialty Start Date End Date Julio Draper MD [address] [place] [address] PCP - General Internal Medicine 07/15/15 Magali Nieves MD [address] [place] [address] 02/27/24 Tasha Laureano, FRONT END MECHANIC.[employer] CERTIF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 [address] [place], [place] [address] Cosmetology Teacher Internal Medicine 06/11/24 Fashion Show Director Relationship Specialty Start Date End Date Julio Draper MD [address] [place], [place] [address]341 PCP - General Internal Medicine 07/15/15 Magali Nieves MD [address] [place] [address] 02/27/24 Tasha Laureano, FRONT END MECHANIC.[employer]IS[employer] CERTIF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 [address] [place] [address] Cosmetology Teacher Internal Medicine 06/11/24 Fashion Show Director Relationship Specialty Start Date End Date Julio Draper MD [address] [place], [place] [address] PCP - General Internal Medicine 07/15/15 Magali Nieves MD [address] [place] [address] 02/27/24 Tasha Laureano, FRONT END MECHANIC.[employer]IS[employer] CERTIF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 [address] [place] [address] Cosmetology Teacher Internal Medicine 06/11/24 Fashion Show Director Relationship Specialty Start Date End Date Julio Draper MD [address] [place] [address] PCP - General Internal Medicine 07/15/15 Magali Nieves MD [address] [place] [address] 02/27/24 Tasha Laureano, FRONT END MECHANIC.[employer]IS[employer] CERTIF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 [address] [place] [address] Cosmetology Teacher Internal Medicine 06/11/24 Fashion Show Director Relationship Specialty Start Date End Date Julio Draper MD [address] [place] [address] PCP - General Internal Medicine 07/15/15 Magali Nieves MD [address] [place] [address] 02/27/24 Tasha Laureano, FRONT END MECHANIC.[employer]ISCO CERTIF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 [address] [place] [address] Cosmetology Teacher Internal Medicine 06/11/24 Fashion Show Director Relationship Specialty Start Date End Date Julio Draper MD [address] [place], [place] [address]82641 PCP - General Internal Medicine 07/15/15 Magali Nieves MD [address] [place] [address] 02/27/24 Tasha Laureano, FRONT END MECHANIC.[employer]ISCO CERTIF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 [address] [place] [address] Cosmetology Teacher Internal Medicine 06/11/24 Fashion Show Director Relationship Specialty Start Date End Date Julio Draper MD [address] [place], [place] [address]261 PCP - General Internal Medicine 07/15/15 Magali Nieves MD [address] [place] [phone] 02/27/24 Tasha Laureano, FRONT END MECHANIC.[employer]ISCO CERTIF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 [address] [place] [address] Cosmetology Teacher Internal Medicine 06/11/24 Fashion Show Director Relationship Specialty Start Date End Date Julio Draper MD [address] [place], [place] [address]30831 PCP - General Internal Medicine 07/15/15 Magali Nieves MD [address] [place] [address] 02/27/24 Tasha Laureano, FRONT END MECHANIC.CISCO CERTIF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 [address] [place], [place] 240399 [phone] Cosmetology Teacher Internal Medicine 06/11/24 Fashion Show Director Relationship Specialty Start Date End Date Julio Draper MD [address] [facility] [place] [address] PCP - General Internal Medicine 07/15/15 Magali Nieves MD [address] [place] [address] 02/27/24 Tasha Laureano, FRONT END MECHANIC.[employer]ISCO CERTIF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 [address] [place] [address] Cosmetology Teacher Internal Medicine 06/11/24 Fashion Show Director Relationship Specialty Start Date End Date Julio Draper MD [address] [place], [place] [address]171 PCP - General Internal Medicine 07/15/15 Magali Nieves MD [address] [place] [address] 02/27/24 Tasha Laureano, FRONT END MECHANIC.[employer]ISCO CERTIF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 [address] [place] [address] Cosmetology Teacher Internal Medicine 06/11/24 Fashion Show Director Relationship Specialty Start Date End Date Julio Draper MD [address] [place], [place] 895091 PCP - General Internal Medicine 07/15/15 Magali Nieves MD [address] [place] [address] 02/27/24 Tasha Laureano, FRONT END MECHANIC.CISCO CERTIF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 [address] [place] [address] Cosmetology Teacher Internal Medicine 06/11/24 Fashion Show Director Relationship Specialty Start Date End Date Julio Draper MD [address] [place] [address] PCP - General Internal Medicine 07/15/15 Magali Nieves MD [address] [place] [address] 02/27/24 Tasha Laureano, FRONT END MECHANIC.[employer]ISCO CERTIF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 [address] [place] [address] Cosmetology Teacher Internal Medicine 06/11/24 Fashion Show Director Relationship Specialty Start Date End Date Julio Draper MD [address] [place] [address] PCP - General Internal Medicine 07/15/15 Magali Nieves MD [address] [place] [address] 02/27/24 Tasha Laureano, FRONT END MECHANIC.[employer]ISCO CERTIF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 [address] [place] [address] Cosmetology Teacher Internal Medicine 06/11/24 Fashion Show Director Relationship Specialty Start Date End Date Julio Draper MD [address] [place] [address] PCP - General Internal Medicine 07/15/15 Magali Nieves MD [address] [place] [address] 02/27/24 Tasha Laureano, FRONT END MECHANIC.[employer]ISCO CERTIF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 [address] [place] [address] Cosmetology Teacher Internal Medicine 06/11/24 Fashion Show Director Relationship Specialty Start Date End Date Julio Draper MD [address] [place] [address] PCP - General Internal Medicine 07/15/15 [place] [address] [place] [phone] 02/27/24 Tasha Laureano, FRONT END MECHANIC.[facility] [address] [place] [address] Cosmetology Teacher Internal Medicine 06/11/24 Team Status: Active Member Role Status Dates Dr. Julio Draper MD Primary Care Provider Active Team Status: Inactive Member Role Status Dates Dr. Julio Draper MD Primary Care Provider Active Start: May 24, 2024 End: May 24, 2024 Dr. Julio Draper MD Referring Provider Active Start: May 24, 2024 End: May 24, 2024 Dr. Livan Love MD Attending Provider Active S tart: May 24, 2024 End: May 24, 2024 Team Status: Inactive Member Role Status Dates Dr. Julio Draper MD Primary Care Provider Active Start: June 05, 2024 End: June 05, 2024 Dr. Livan Love MD Attending Provider Active S tart: June 05, 2024 End: June 05, 2024 Dr. Livan Love MD Referring Provider Active S tart: June 05, 2024 End: June 05, 2024 Team Status: Active Member Role Status Dates Dr. Julio Draper MD Primary Care Provider Active Start: June 05, 2024 Dr. Livan Love MD Attending Provider Active S tart: June 05, 2024 Dr. Livan Love MD Referring Provider Active S tart: June 05, 2024 Dr. Livan Love MD Other Provider Active Start : June 05, 2024 Team Status: Inactive Member Role Status Dates Dr. Julio Draper MD Primary Care Provider Active Start: June 19, 2024 End: June 19, 2024 Dr. Julio Draper MD Referring Provider Active Start: June 19, 2024 End: June 19, 2024 NIRMALA Peguero Attending Provider Active Star t: June 19, 2024 End: June 19, 2024 Team Status: Inactive Member Role Status Dates Dr. Julio Draper MD Primary Care Provider Active Start: July 03, 2024 End: July 03, 2024 Dr. Livan Murry DO Attending Provider Active Start: July 03, 2024 End: July 03, 2024 Dr. Livan Murry DO Emergency Provider Active Start: July 03, 2024 End: July 03, 2024 Team Status: Inactive Member Role Status Dates Dr. Julio Draper MD Primary Care Provider Active Start: July 08, 2024 End: July 11, 2024 Dr. Hoang Foster DO Emergency Provider Active Start: July 08, 2024 End: July 11, 2024 Dr. January Perez DO Admit Provider Active Start : July 08, 2024 End: July 11, 2024 Dr. January Perez DO Other Provider Active Start : July 08, 2024 End: July 11, 2024 Dr. Adelia Lawson MD Other Provider Active Start: July 08, 2024 End: July 11, 2024 Dr. Diana Santillan MD Attending Provider Active Start: July 08, 2024 End: July 11, 2024 Dr. Mihai Izaguirre MD Other Provider Active Start: July 08, 2024 End: July 11, 2024 Team Status: Active Member Role Status Dates Dr. Julio Draper MD Primary Care Provider Active Start: July 08, 2024 Dr. Hoang Foster DO Emergency Provider Active Start: July 08, 2024 Dr. January Perez DO Admit Provider Active Start : July 08, 2024 Dr. January Perez DO Attending Provider Active S tart: July 08, 2024 Dr. January Perez DO Other Provider Active Start : July 08, 2024 Team Status: Active Member Role Status Dates Dr. Julio Draper MD Primary Care Provider Active Start: July 09, 2024 Dr. Hoang Foster DO Emergency Provider Active Start: July 09, 2024 Dr. January Perez DO Admit Provider Active Start : July 09, 2024 Dr. January Perez DO Other Provider Active Start : July 09, 2024 Dr. Mihai Izaguirre MD Attending Provider Active Start: July 09, 2024 Dr. Mihai Izaguirre MD Other Provider Active Start: July 09, 2024 Dr. Adelia Lawson MD Other Provider Active Start: July 09, 2024 Team Status: Active Member Role Status Dates Dr. Julio Draper MD Primary Care Provider Active Start: July 10, 2024 Dr. Hoang Foster DO Emergency Provider Active Start: July 10, 2024 Dr. January Perez DO Admit Provider Active Start : July 10, 2024 Dr. January Perez DO Other Provider Active Start : July 10, 2024 Dr. Adelia Lawson MD Other Provider Active Start: July 10, 2024 Dr. Diana Santillan MD Attending Provider Active Start: July 10, 2024 Dr. Diana Santillan MD Other Provider Active Star t: July 10, 2024 Dr. Mihai Izaguirre MD Other Provider Active Start: July 10, 2024 Team Status: Active Member Role Status Dates Dr. Julio Draper MD Primary Care Provider Active Start: July 11, 2024 Dr. Hoang Foster DO Emergency Provider Active Start: July 11, 2024 Dr. January Perez DO Admit Provider Active Start : July 11, 2024 Dr. January Perez DO Other Provider Active Start : July 11, 2024 Dr. Adelia Lawson MD Other Provider Active Start: July 11, 2024 Dr. Diana Santillan MD Attending Provider Active Start: July 11, 2024 Dr. Diana Santillan MD Other Provider Active Star t: July 11, 2024 Dr. Mihai Izaguirre MD Other Provider Active Start: July 11, 2024 Team Status: Inactive Member Role Status Dates Dr. Julio Draper MD Primary Care Provider Active Start: July 23, 2024 End: July 27, 2024 Dr. Radu Sullivan MD Emergency Provider Active S tart: July 23, 2024 End: July 27, 2024 Dr. Gabby Sutherland MD Admit Provider Active St art: July 23, 2024 End: July 27, 2024 Dr. Gabby Sutherland MD Attending Provider Active Start: July 23, 2024 End: July 27, 2024 Dr. Adelia Lawson MD Other Provider Active Start: July 23, 2024 End: July 27, 2024 Dr. Solo Perry MD Other Provider Active Start: July 23, 2024 End: July 27, 2024 Team Status: Active Member Role Status Dates Dr. Julio Draper MD Primary Care Provider Active Start: July 23, 2024 Dr. Radu Sullivan MD Emergency Provider Active S tart: July 23, 2024 Dr. Gabby Sutherland MD Admit Provider Active St art: July 23, 2024 Dr. Gabby Sutherland MD Attending Provider Active Start: July 23, 2024 Dr. Gabby Sutherland MD Other Provider Active St art: July 23, 2024 Dr. Adelia Lawson MD Other Provider Active Start: July 23, 2024 Team Status: Active Member Role Status Dates Dr. Julio Draper MD Primary Care Provider Active Start: July 24, 2024 Dr. Radu Sullivan MD Emergency Provider Active S tart: July 24, 2024 Dr. Gabby Sutherland MD Admit Provider Active St art: July 24, 2024 Dr. Gabby Sutherland MD Attending Provider Active Start: July 24, 2024 Dr. Gabby Sutherland MD Other Provider Active St art: July 24, 2024 Dr. Adelia Lawson MD Other Provider Active Start: July 24, 2024 Dr. Solo Perry MD Other Provider Active Start: July 24, 2024 Team Status: Active Member Role Status Dates Dr. Julio Draper MD Primary Care Provider Active Start: July 25, 2024 Dr. Radu Sullvian MD Emergency Provider Active S tart: July 25, 2024 Dr. Gabby Sutherland MD Admit Provider Active St art: July 25, 2024 Dr. Gabby Sutherland MD Attending Provider Active Start: July 25, 2024 Dr. Gabby Sutherland MD Other Provider Active St art: July 25, 2024 Dr. Adelia Lawson MD Other Provider Active Start: July 25, 2024 Dr. Solo Perry MD Other Provider Active Start: July 25, 2024 Team Status: Active Member Role Status Dates Dr. Julio Draper MD Primary Care Provider Active Start: July 26, 2024 Dr. Radu Sullivan MD Emergency Provider Active S tart: July 26, 2024 Dr. Gabby Sutherland MD Admit Provider Active St art: July 26, 2024 Dr. Gabby Sutherland MD Attending Provider Active Start: July 26, 2024 Dr. Gabby Sutherland MD Other Provider Active St art: July 26, 2024 Dr. Adelia Lawson MD Other Provider Active Start: July 26, 2024 Dr. Solo Perry MD Other Provider Active Start: July 26, 2024 Team Status: Active Member Role Status Dates Dr. Julio Draper MD Primary Care Provider Active Start: July 27, 2024 Dr. Radu Sullivan MD Emergency Provider Active S tart: July 27, 2024 Dr. Gabby Sutherland MD Admit Provider Active St art: July 27, 2024 Dr. Gabby Sutherland MD Attending Provider Active Start: July 27, 2024 Dr. Gabby Sutherland MD Other Provider Active St art: July 27, 2024 Dr. Adelia Lawson MD Other Provider Active Start: July 27, 2024 Dr. Solo Perry MD Other Provider Active Start: July 27, 2024 Team Status: Inactive Member Role Status Dates Dr. Julio Draper MD Primary Care Provider Active Start: August 02, 2024 End: August 03, 2024 Dr. Dariel Combs DO Attending Provider Active Start : August 02, 2024 End: August 03, 2024 Dr. Dariel Combs DO Emergency Provider Active Start : August 02, 2024 End: August 03, 2024 Team Status: Inactive Member Role Status Dates Dr. Julio Draper MD Primary Care Provider Active Start: August 06, 2024 End: August 10, 2024 Dr. Hoang Foster DO Emergency Provider Active Start: August 06, 2024 End: August 10, 2024 Dr. Yemi Celaya MD Admit Provider Active Sta rt: August 06, 2024 End: August 10, 2024 Dr. Yemi Celaya MD Other Provider Active Sta rt: August 06, 2024 End: August 10, 2024 Dr. Adelia Lawson MD Other Provider Active Start: August 06, 2024 End: August 10, 2024 Dr. Robel Funk DO Attending Provider Active Start: August 06, 2024 End: August 10, 2024 Team Status: Active Member Role Status Dates Dr. Julio Draper MD Primary Care Provider Active Start: August 07, 2024 Dr. Hoang Foster DO Emergency Provider Active Start: August 07, 2024 Dr. Yemi Celaya MD Admit Provider Active Sta rt: August 07, 2024 Dr. Yemi Celaya MD Attending Provider Active Start: August 07, 2024 Dr. Yemi Celaya MD Other Provider Active Sta rt: August 07, 2024 Dr. Adelia Laswon MD Other Provider Active Start: August 07, 2024 Team Status: Active Member Role Status Dates Dr. Julio Draper MD Primary Care Provider Active Start: August 08, 2024 Dr. Hoang Foster DO Emergency Provider Active Start: August 08, 2024 Dr. Yemi Celaya MD Admit Provider Active Sta rt: August 08, 2024 Dr. Yemi Celaya MD Attending Provider Active Start: August 08, 2024 Dr. Yemi Celaya MD Other Provider Active Sta rt: August 08, 2024 Dr. Adelia Lawson MD Other Provider Active Start: August 08, 2024 Team Status: Active Member Role Status Dates Dr. Julio Draper MD Primary Care Provider Active Start: August 09, 2024 Dr. Hoang Foster DO Emergency Provider Active Start: August 09, 2024 Dr. Yemi Celaya MD Admit Provider Active Sta rt: August 09, 2024 Dr. Yemi Celaya MD Other Provider Active Sta rt: August 09, 2024 Dr. Adelia Lawson MD Other Provider Active Start: August 09, 2024 Dr. Robel Funk DO Attending Provider Active Start: August 09, 2024 Dr. Robel Funk DO Other Provider Active Start: August 09, 2024 Team Status: Active Member Role Status Dates Dr. Julio Draper MD Primary Care Provider Active Start: August 10, 2024 Dr. Hoang Foster DO Emergency Provider Active Start: August 10, 2024 Dr. Yemi Celaya MD Admit Provider Active Sta rt: August 10, 2024 Dr. Yemi Celaya MD Other Provider Active Sta rt: August 10, 2024 Dr. Adelia Lawson MD Other Provider Active Start: August 10, 2024 Dr. Robel Funk DO Attending Provider Active Start: August 10, 2024 Dr. Robel Funk DO Other Provider Active Start: August 10, 2024 Team Status: Inactive Member Role Status Dates Dr. Julio Draper MD Primary Care Provider Active Start: September 06, 2024 End: September 06, 2024 Dr. Livan Love MD Attending Provider Active S tart: September 06, 2024 End: September 06, 2024 Dr. Livan Love MD Referring Provider Active S tart: September 06, 2024 End: September 06, 2024 Team Status: Active Member Role Status Dates Dr. Julio Draper MD Primary Care Provider Active Start: September 06, 2024 Dr. Livan Love MD Attending Provider Active S tart: September 06, 2024 Dr. Livan Love MD Referring Provider Active S tart: September 06, 2024 Dr. Livan Love MD Other Provider Active Start : September 06, 2024 Team Status: Inactive Member Role Status Dates Dr. Julio Draper MD Primary Care Provider Active Start: September 17, 2024 End: September 17, 2024 Dr. Dariel Combs DO Emergency Provider Active Start : September 17, 2024 End: September 17, 2024 Fashion Show Director Relationship Specialty Start Date End Date Julio Draper MD [address] [place] [address] PCP - General Internal Medicine 07/15/15 Magali Nieves MD [address] [place] [id number] 02/27/24 Tasha Laureano, FRONT END MECHANIC.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 [address] [place] [address] Cosmetology Teacher Internal Medicine 06/11/24 Team Status: Inactive Member Role Status Dates Dr. Julio Draper MD Primary Care Provider Active Start: September 17, 2024 End: September 17, 2024 Dr. Dariel Combs DO Attending Provider Active Start : September 17, 2024 End: September 17, 2024 Dr. Dariel Combs DO Emergency Provider Active Start : September 17, 2024 End: September 17, 2024 Team Status: Inactive Member Role Status Dates Dr. Julio Draper MD Primary Care Provider Active Start: September 20, 2024 End: September 20, 2024 Dr. Julio Draper MD Referring Provider Active Start: September 20, 2024 End: September 20, 2024 NIRMALA Peguero Attending Provider Active Star t: September 20, 2024 End: September 20, 2024 Team Status: Inactive Member Role Status Dates Dr. Julio Draper MD Primary Care Provider Active Start: October 31, 2024 End: October 31, 2024 Dr. Dariel Combs DO Attending Provider Active Start : October 31, 2024 End: October 31, 2024 Dr. Dariel Combs DO Emergency Provider Active Start : October 31, 2024 End: October 31, 2024 Team Status: Inactive Member Role Status Dates Dr. Julio Draper MD Primary Care Provider Active Start: November 01, 2024 End: November 01, 2024 Dr. Julio Draper MD Referring Provider Active Start: November 01, 2024 End: November 01, 2024 Lorna SILVESTRE, PA Attending Provider Active Start: November 01, 2024 End: November 01, 2024 Fashion Show Director Relationship Specialty Start Date End Date Julio Draper MD [address] [place] [address] PCP - General Internal Medicine 07/15/15 Magali Nieves MD [address] [place] [id number] 02/27/24 Tasha Laureano, FRONT END MECHANIC.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 [address] [place] [address] Cosmetology Teacher Internal Medicine 06/11/24 Fashion Show Director Relationship Specialty Start Date End Date Julio Draper MD [address] [place], [place] [address] PCP - General Internal Medicine 07/15/15 Magali Nieves MD [address] [place] [id number] 02/27/24 Tasha Laureano, FRONT END MECHANIC.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 [address] [place], [place] [address] Cosmetology Teacher Internal Medicine 06/11/24 Team Status: Active Member Role/Relationship Status Dates Dr. Julio Draper MD Primary Care Provider Active Team Status: Inactive Member Role/Relationship Status Dates Dr. Julio Draper MD Primary Care Provider Active Start: September 06, 2024 End: September 06, 2024 Dr. Livan Love MD Attending Provider Active S tart: September 06, 2024 End: September 06, 2024 Dr. Livan Love MD Referring Provider Active S tart: September 06, 2024 End: September 06, 2024 Team Status: Active Member Role/Relationship Status Dates Dr. Julio Draper MD Primary Care Provider Active Start: September 06, 2024 Dr. Livan Love MD Attending Provider Active S tart: September 06, 2024 Dr. Livan Love MD Referring Provider Active S tart: September 06, 2024 Dr. Livan Love MD Other Provider Active Start : September 06, 2024 Team Status: Inactive Member Role/Relationship Status Dates Dr. Julio Draper MD Primary Care Provider Active Start: September 17, 2024 End: September 17, 2024 Dr. Dariel Combs DO Attending Provider Active Start : September 17, 2024 End: September 17, 2024 Dr. Dariel Combs DO Emergency Provider Active Start : September 17, 2024 End: September 17, 2024 Team Status: Inactive Member Role/Relationship Status Dates Dr. Julio Draper MD Primary Care Provider Active Start: September 20, 2024 End: September 20, 2024 Dr. Julio Draper MD Referring Provider Active Start: September 20, 2024 End: September 20, 2024 NIRMALA Peguero Attending Provider Active Star t: September 20, 2024 End: September 20, 2024 Team Status: Inactive Member Role/Relationship Status Dates Dr. Julio Draper MD Primary Care Provider Active Start: October 31, 2024 End: October 31, 2024 Dr. Dariel Combs DO Attending Provider Active Start : October 31, 2024 End: October 31, 2024 Dr. Dariel Combs DO Emergency Provider Active Start : October 31, 2024 End: October 31, 2024 Team Status: Inactive Member Role/Relationship Status Dates Dr. Julio Draper MD Primary Care Provider Active Start: November 01, 2024 End: November 01, 2024 Dr. Julio Draper MD Referring Provider Active Start: November 01, 2024 End: November 01, 2024 Lorna Dasilva PA, PA Attending Provider Active Start: November 01, 2024 End: November 01, 2024 Team Status: Inactive Member Role/Relationship Status Dates Dr. Julio Draper MD Primary Care Provider Active Start: November 20, 2024 End: November 20, 2024 Lorna Dasilva PA, PA Attending Provider Active Start: November 20, 2024 End: November 20, 2024 Lorna Dasilva PA, PA Referring Provider Active Start: November 20, 2024 End: November 20, 2024 Team Status: Active Member Role/Relationship Status Dates Dr. Julio Draper MD Primary Care Provider Active Start: November 20, 2024 Dr. Alayna Salazar MD Attending Provider Active Start: November 20, 2024 Lorna Dasilva PA, PA Referring Provider Active Start: November 20, 2024 Team Status: Inactive Member Role/Relationship Status Dates Dr. Julio Draper MD Primary Care Provider Active Start: January 03, 2025 End: January 03, 2025 Dr. Livan Love MD Attending Provider Active S tart: January 03, 2025 End: January 03, 2025 Dr. Livan Love MD Referring Provider Active S tart: January 03, 2025 End: January 03, 2025 Team Status: Active Member Role/Relationship Status Dates Dr. Julio Draper MD Primary Care Provider Active Start: January 03, 2025 Dr. Livan Love MD Attending Provider Active S tart: January 03, 2025 Dr. Livan Love MD Referring Provider Active S tart: January 03, 2025 Dr. Livan Love MD Other Provider Active Start : January 03, 2025 Team Status: Inactive Member Role/Relationship Status Dates Dr. Julio Draper MD Primary Care Provider Active Start: October 31, 2024 End: October 31, 2024 Dr. Dariel Combs DO Attending Provider Active Start : October 31, 2024 End: October 31, 2024 Dr. Dariel Combs DO Emergency Provider Active Start : October 31, 2024 End: October 31, 2024 Team Status: Inactive Member Role/Relationship Status Dates Dr. Julio Draper MD Primary Care Provider Active Start: November 01, 2024 End: November 01, 2024 Dr. Julio Draper MD Referring Provider Active Start: November 01, 2024 End: November 01, 2024 NIRMALA Hannah Attending Provider Active Start: November 01, 2024 End: November 01, 2024 Team Status: Inactive Member Role/Relationship Status Dates Dr. Julio Draper MD Primary Care Provider Active Start: November 20, 2024 End: November 20, 2024 Lorna SILVESTRE PA Attending Provider Active Start: November 20, 2024 End: November 20, 2024 Lorna SILVESTRE PA Referring Provider Active Start: November 20, 2024 End: November 20, 2024 Team Status: Active Member Role/Relationship Status Dates Dr. Julio Draper MD Primary Care Provider Active Start: November 20, 2024 Dr. Alayna Salazar MD Attending Provider Active Start: November 20, 2024 Lorna SILVESTRE PA Referring Provider Active Start: November 20, 2024 Team Status: Inactive Member Role/Relationship Status Dates Dr. Julio Draper MD Primary Care Provider Active Start: January 03, 2025 End: January 03, 2025 Dr. Livan Love MD Attending Provider Active S tart: January 03, 2025 End: January 03, 2025 Dr. Livan Love MD Referring Provider Active S tart: January 03, 2025 End: January 03, 2025 Team Status: Active Member Role/Relationship Status Dates Dr. Julio Draper MD Primary Care Provider Active Start: January 03, 2025 Dr. Livan Love MD Attending Provider Active S tart: January 03, 2025 Dr. Livan Love MD Referring Provider Active S tart: January 03, 2025 Dr. Livan Love MD Other Provider Active Start : January 03, 2025 Team Status: Inactive Member Role/Relationship Status Dates Dr. Julio Draper MD Primary Care Provider Active Start: January 24, 2025 End: January 24, 2025 Dr. Julio Draper MD Referring Provider Active Start: January 24, 2025 End: January 24, 2025 Lorna SILVESTRE PA Attending Provider Active Start: January 24, 2025 End: January 24, 2025 Goals (unrecognized section and content) Goals may be documented in a n alternate sectionGoals may be documented in an alternate sectionGoals may be documented in an alternate sectionGoals may be documented in an alternate sectionGoals may be documented in an alternate section FOR RECORDS PERTAINING TO PATIENTS WHO ARE [...] BE BASED ON THE PRIMARY CLINICAL RECORDS. [facility]. provides no warranty or guarantee of the accuracy or completeness of information in this document.
--- NOTE | 2025-02-09 15:28 | EKG12_ITS ---
Test Reason : BACK PAIN Blood Pressure : */* mmHG Vent. Rate : 93 BPM Atrial Rate : 93 BPM P-R Int : 198 ms QRS Dur : 82 ms QT Int : 368 ms P-R-T Axes : 66 74 48 degrees QTcB Int : 457 ms Normal sinus rhythm Possible Left atrial enlargement Borderline ECG Confirmed by ROB DORANTES, LUCRETIA ([id number]), editor city EDGARD HURTADO ([id number]) on 02/11/2025 1:11:29 PM Referred By: Livan Murry Confirmed By: LUCRETIA RIVAS MD
--- NOTE | 2025-02-09 15:29 | CT_ITS ---
PROCEDURE: ABDOMEN/PELVIS WITHOUT CONT 02/09/2025 REASON FOR EXAM: FLANK PAIN TECHNIQUE: ABDOMEN/PELVIS WITHOUT CONT Noncontrast technique limits evaluation of the abdominal and pelvic viscera. Coronal and Sagittal reconstruction series were provided. One or more dose reduction techniques were used (e.g., Automated exposure control, adjustment of the mA and/or kV according to patient size, use of iterative reconstruction technique). RADIATION DOSE SUMMARY: DLP: 311 mGycm COMPARISON: CT abdomen pelvis 07/05/2023. FINDINGS: Lung bases: Small right and trace left pleural effusions with adjacent atelectasis, improved since prior examination. Severe coronary artery calcifications. Liver: The unopacified liver is normal in size. No biliary ductal dilation. Gallbladder: Surgically absent. Spleen: Normal size. Pancreas: The unopacified pancreas is unremarkable. Adrenals: No adrenal mass. Kidneys: Moderate bilateral renal cortical scarring. Stable right upper pole renal calculus, unchanged since at least 2023. No hydronephrosis. Bladder: Mildly distended and unremarkable. Reproductive Organs: Unremarkable uterus. Bowel: The bowel loops are nondilated. No ascites or pneumoperitoneum. No inflammatory mass in the expected region of the appendix. Lymph nodes: Visualization is limited without the use of IV contrast. No large lymphadenopathy. Vasculature: Severe calcific plaque of the abdominal aorta. Bones: Thoracolumbar spondylosis. Chronic left rib fracture deformities. CT/Abdomen/Pelvis without Cont IMPRESSION: No acute abdominopelvic finding. Chronic findings as described. Reading Location: [id number]
[2025-02-09 15:53] LABS: Hematocrit 36.3 % (37-47); Hemoglobin 11.1 g/dL (12.0-15.0); Immature Granulocytes Count 0.100 X10^3/uL (0.0-0.0); Mean Corp Hgb Conc 30.6 g/dL (32-36); Mean Corpuscular Volume 98.4 fL (81-99); Mean Platelet Vol. 9.9 fl (6.2-12.0); NRBC Flagged by Analyzer 0 % (0-5); Platelet Count 235 K/mm3 (150-450); RBC Distribution Width CV 16.5 % (11.6-14.6); RBC Distribution Width SD 59.6 fl (35.1-43.9); Red Blood Count 3.69 M/mm3 (4.2-5.4); White Blood Count 7.2 K/mm3 (4.4-11.0)
--- NOTE | 2025-02-09 16:05 | RAD_ITS ---
PROCEDURE: SHOULDER MIN 2 VIEWS 02/09/2025 REASON FOR EXAM: INJURY/PAIN TECHNIQUE: SHOULDER MIN 2 VIEWS Laterality: Right COMPARISON: Right shoulder radiographs 09/17/2024. FINDINGS: Bones: No obvious acute fracture or dislocation. Joints: Prior partial right shoulder arthroplasty in grossly anatomic alignment. Soft tissues: Soft tissues are unremarkable. Other: Calcification of the thoracic aorta. RAD/Shoulder min 2 Views IMPRESSION: NO ACUTE FRACTURE OR DISLOCATION. Reading Location: [id number]
--- NOTE | 2025-02-09 16:05 | RAD_ITS ---
PROCEDURE: CHEST PA AND LATERAL 02/09/2025 REASON FOR EXAM: COUGH TECHNIQUE: CHEST PA AND LATERAL COMPARISON: Chest radiograph 10/31/2024. FINDINGS: Hardware: Stable partial right shoulder arthroplasty. Heart: The heart size is normal. Mediastinum: The mediastinal contour is stable. Lungs: Bibasilar atelectasis. No focal consolidation, pleural effusion or pneumothorax. Bones: Degenerative changes are identified within the thoracic spine. RAD/Chest PA and Lateral IMPRESSION: NO ACUTE FINDINGS. Reading Location: [id number]
[2025-02-09 16:10] VITALS: O2SAT 96
[2025-02-09 16:18] LABS: Anion Gap 12 (5-15); BUN 32 mg/dL (4-19); BUN/Creat Ratio 10.1 RATIO (10-20); Calcium,Total 9.3 mg/dL (7.6-11.0); Carbon Dioxide 27.7 mmol/L (21.0-32.0); Chloride 100 mmol/L (98-108); Estimated Creatinine Clearance 14.58 ml/min (50-250); Glucose 130 mg/dL (70-99); Potassium 4.5 mmol/L (3.3-5.1); Troponin T High Sensitivity 47 ng/L (<=14)
[2025-02-09 16:47] VITALS: BP 138/66; PULSE 83; RESP 16; O2SAT 96
[2025-02-09 17:06] LABS: Mucous, Urine 0 SEEN /hpf (<or=2+)
[2025-02-09 17:21] LABS: Color, Urine Yellow (Yellow); Glucose, Dipstick Normal (Normal); Ketone-Dipstick Negative (Negative); Leukocyte Esterase-Dipstick Negative /ul (Negative); Nitrite-Dipstick Negative (Negative); Occult Blood-Urine 150 /ul (Negative); Protein-Dipstick 100 mg/dl (Negative); Specific Gravity, Urine 1.010 (1.002-1.030); Urine Bilirubin Dipstick Negative (Negative)
[2025-02-09 17:35] LABS: Red Blood Cells-Urine 5-10 SEEN /hpf (0-5); Squamous Epithelial Cells - UA 0-5 SEEN /hpf (5-10)
[2025-02-09 18:00] VITALS: BP 132/63; PULSE 78; RESP 16; O2SAT 96
[2025-02-09 18:50] LABS: Troponin T High Sens 2 HR 42 ng/L (<=14)
[2025-02-09] MEDS: HYDROcodone Bitartrate/Apap 5/325 Tablet PO (19:15)
[2025-02-09 19:24] VITALS: BP 132/63; PULSE 78; RESP 16; TEMP 37; O2SAT 96
== END 2025-02-09 19:25 | disposition home or self-care (01) ==
PROVIDERS: Emergency Provider Emergency Medicine; PCP Internal Medicine; Referring Provider Emergency Medicine; Visit Provider Emergency Medicine
DX: M25.511 Pain in right shoulder (principal); I12.0 Hypertensive chronic kidney disease with stage 5 chronic kidney disease or end stage renal disease; N18.6 End stage renal disease; J44.9 Chronic obstructive pulmonary disease, unspecified; M54.50 Low back pain, unspecified; I25.2 Old myocardial infarction; Z87.891 Personal history of nicotine dependence
CPT/HCPCS: 71046; 73030; 74176; 80048; 81001; 84484; 85025; 93005; 96374; 96375; 99284; A4216; J2405

== ENCOUNTER 2025-04-13 21:50 | Emergency (ER) | payer MEDICARE, OTHER, SELFPAY ==
[2025-04-13 21:50] VITALS: BP 159/70; PULSE 94; RESP 16; TEMP 37.2; O2SAT 98; BMI 25.2
--- NOTE | 2025-04-13 22:21 | EKG12_ITS ---
Test Reason : CP Blood Pressure : */* mmHG Vent. Rate : 87 BPM Atrial Rate : 87 BPM P-R Int : 222 ms QRS Dur : 86 ms QT Int : 368 ms P-R-T Axes : 98 56 79 degrees QTcB Int : 442 ms Sinus rhythm with 1st degree A-V block Nonspecific ST abnormality Abnormal ECG Confirmed by ROB DORANTES, LUCRETIA ([id number]), editor managing newspaper RACHEL APARICIO ([id number]) on 04/16/2025 7:40:12 AM Referred By: HUBERT Confirmed By: LUCRETIA RIVAS MD
[2025-04-13 22:35] LABS: Hematocrit 36.0 % (37-47); Hemoglobin 11.4 g/dL (12.0-15.0); Immature Granulocytes Count 0.020 X10^3/uL (0.0-0.0); Mean Corp Hgb Conc 31.7 g/dL (32-36); Mean Corpuscular Volume 94.5 fL (81-99); Mean Platelet Vol. 11.0 fl (6.2-12.0); NRBC Flagged by Analyzer 0 % (0-5); Platelet Count 223 K/mm3 (150-450); RBC Distribution Width CV 13.5 % (11.6-14.6); RBC Distribution Width SD 47.2 fl (35.1-43.9); Red Blood Count 3.81 M/mm3 (4.2-5.4); White Blood Count 11.7 K/mm3 (4.4-11.0)
--- NOTE | 2025-04-13 22:35 | RAD_ITS ---
PROCEDURE: CHEST 1 VIEW (PORTABLE) 04/13/2025 REASON FOR EXAM: CHEST PAIN TECHNIQUE: Frontal view of the chest. COMPARISON: 02/09/2025 FINDINGS: Hardware: Right shoulder arthroplasty. Heart: The heart size is normal. Lungs: The lungs are clear. No pneumothorax or pleural effusion. Bones: The bones are unremarkable. RAD/Chest 1 View (Portable) IMPRESSION: No Acute Findings. Reading Location[facility]
[2025-04-13 22:50] VITALS: BP 111/57; PULSE 88; RESP 18; O2SAT 98
[2025-04-13 22:50] LABS: Troponin T High Sensitivity 52 ng/L (<=14)
[2025-04-13 22:51] LABS: Anion Gap 13 (5-15); BUN 37 mg/dL (4-19); BUN/Creat Ratio 10.6 RATIO (10-20); Calcium,Total 9.5 mg/dL (7.6-11.0); Carbon Dioxide 28.5 mmol/L (21.0-32.0); Chloride 99 mmol/L (98-108); Estimated Creatinine Clearance 14.63 ml/min (50-250); Glucose 109 mg/dL (70-99); Magnesium 2.2 mg/dL (1.5-2.2); Potassium 3.7 mmol/L (3.3-5.1)
[2025-04-13 23:00] VITALS: BP 128/57; PULSE 90; RESP 18; O2SAT 91
[2025-04-13 23:49] LABS: Troponin T High Sens 2 HR 52 ng/L (<=14)
[2025-04-14] VITALS: BP 116/56; PULSE 87; RESP 18; O2SAT 97
--- NOTE | 2025-04-14 00:12 | EX.ED.DYSGE1 ---
HPI History of Present Illness Chief Complaint: Chest Pain Informant: patient and spouse/S.O. Narrative Narrative: Patient is a 69-year-old female with past medical history of end-stage renal disease on dialysis as well as hypertension proximal atrial fibrillation and COPD. She states she will experience chest discomfort frequently and is on Imdur. She states she awoke this morning and felt midsternal chest pain and therefore took her Imdur and it resolved. However this evening the chest pain returned and this time felt like a jolt. She states the pain was more intense and was not the typical pain she is used to. She states that the pain did improve after she took a home nitro and aspirin but as the pain was different from her recurrent or chronic symptoms she presents for evaluation. [facility] Medical History End stage renal disease on dialysis Pulmonary nodule Anemia of chronic disease Sepsis End stage chronic kidney disease Pneumonia End-stage renal disease (ESRD) Post-menopausal History of steroid therapy History of renal dialysis Blackout Gastric reflux Emphysema, unspecified Shortness of breath on exertion Normal Holter exam History of echocardiogram Hypertension Cardiology follow-up encounter History of heart attack History of atrial fibrillation Hemodialysis catheter malfunction Former cigarette smoker GERD (gastroesophageal reflux disease) Hyperlipidemia History of GI bleed Pleural effusion ESRD (end stage renal disease) on dialysis Essential hypertension NSTEMI (non-ST elevated myocardial infarction) EARNEST (acute kidney injury) Hx of ulcer disease Former smoker Atrial fibrillation Elevated blood pressure reading without diagnosis of hypertension Chronic hypoxemic respiratory failure Acute bronchospasm Acute exacerbation of chronic obstructive pulmonary disease Empyema of pleural space Syncope Bleeding ulcer Anemia requiring transfusions Lung nodules Pleurisy On home oxygen therapy Migraines Hyperglycemia Elevated serum creatinine Sinus tachycardia Fever and chills Dyspnea on exertion Acute bronchospasm COPD exacerbation Leukocytosis Community acquired pneumonia Anxiety Benign essential tremor Former tobacco use Pneumonia due to COVID-19 virus Asthma COPD (chronic obstructive pulmonary disease) Tobacco use Tremor Benign essential hypertension Home Medications ?Medication ?Instructions ?Recorded ?Last Taken ?Type albuterol sulfate 90 mcg/actuation 2 puff inhalation Q4H PRN PRN 08/28/15 10/30/24 History aerosol inhaler (Ventolin HFA) Shortness Of Breath montelukast 10 mg tablet 10 mg PO QHS ALLERGIES 02/25/18 10/30/24 History fluticasone propionate 50 2 spray intranasal QHS ALLERGIES 10/29/21 07/03/25 History mcg/actuation nasal spray,suspension atorvastatin 40 mg tablet 40 mg PO QHS 09/23/23 10/30/24 History isosorbide mononitrate 60 mg 60 mg PO DAILY 09/23/23 10/30/24 History tablet,extended release 24 hr nitroglycerin 0.4 mg sublingual 0.4 mg sublingual Q5-15M PRN chest 09/23/23 Unknown History tablet pain buspirone 10 mg tablet 10 mg PO QHS 09/27/23 10/30/24 History vitamin B complex-vitamin C-folic 1 tab PO DAILY 05/22/24 10/30/24 History acid 0.8 mg tablet (Galina-Jose Elias) acetaminophen 650 mg 650 mg PO Q6H PRN pain 07/23/24 10/31/24 History tablet,extended release (8 Hour Pain Reliever) ipratropium 0.5 mg-albuterol 3 mg 3 ml continuous nebulization Q6H 08/06/24 10/30/24 History (2.5 mg base)/3 mL nebulization PRN PRN wheezing soln pantoprazole 40 mg tablet,delayed 40 mg PO DAILY 08/06/24 10/30/24 History release alendronate 70 mg tablet 70 mg PO QWEEK 10/31/24 10/26/24 History calcium acetate(phosphat bind) 667 667 mg PO TID 10/31/24 10/30/24 History mg capsule fluticasone fur. 200 mcg-umeclid 1 ea inhalation DAILY 10/31/24 10/30/24 History 62.5 mcg-vilant 25 mcg inhalat.powder (Trelegy Ellipta) ferrous sulfate 325 mg (65 mg 325 mg PO QDAY 11/01/24 Unknown History iron) tablet,delayed release ergocalciferol (vitamin D2) 1,250 1,250 mcg PO QWEEK 01/24/25 Unknown History mcg (50,000 unit) capsule sucralfate 1 gram tablet 1 g PO DAILY PRN GI 01/24/25 Unknown History hydrocodone-acetaminophen 5-325mg 1 tab PO Q6H PRN PRN Pain 3 days 02/09/25 Unknown Rx 5mg-325mg #10 TABLETS Allergy/AdvReac Type Severity Reaction Status Date / Time cephalexin monohydrate (From Allergy Chest Verified 04/13/25 21:53 Keflex) tightness vancomycin AdvReac Mild Itching Verified 04/13/25 21:53 Family History Other Adopted Surgical History Hx of surgical procedure Hx of colonoscopy AVF (arteriovenous fistula) (03/13/24) Hx of colonoscopy History of cardiac catheterization Hx of total shoulder replacement Hx of chest tube placement Hx of esophagogastroduodenoscopy H/O bilateral salpingectomy History of herniorrhaphy Hx of tonsillectomy Hx of cholecystectomy Social History adopted: Yes household members: family housing: house Smoking Status: Former smoker how long ago did patient quit smokin years ago alcohol intake: never substance use type: does not use caffeine: Yes Type: coffee Number of servings: 1 ROS ROS ED Constitutional Constitutional ED: Denies chills or fever(s) Eyes Eyes: Denies blurry vision or change in vision ENT ENT ED: Denies sore throat Cardiovascular Cardiovascular: Reports chest pain; Denies palpitations or racing heartbeat Respiratory/Chest Respiratory/Chest: Reports dyspnea and other Details: Patient reports shortness of breath is chronic in nature ; Denies cough Gastrointestinal Gastrointestinal: Denies abdominal pain, diarrhea, nausea or vomiting Musculoskeletal Musculoskeletal: Denies back pain Integumentary Denies rash Neurologic Neurologic: Denies headache(s) EXAM Physical Exam Const Vital Signs: 04/13/25 21:50 04/13/25 22:00 04/13/25 22:50 Temperature 99 F Temperature Source Oral Pulse Rate 94 88 Respiratory Rate 16 18 Respiratory Effort Normal Blood Pressure 159/70 H 111/57 L Blood Pressure Mean 99 75 Pulse Ox 98 98 Oxygen Delivery Method Room Air Nasal Cannula Oxygen Flow Rate (L/min) 3 04/13/25 23:00 04/14/25 00:00 04/14/25 00:17 Temperature 98.9 F Temperature Source Pulse Rate 90 87 86 Respiratory Rate 18 18 18 Respiratory Effort Blood Pressure 128/57 H 116/56 L 134/64 H Blood Pressure Mean 80 76 87 Pulse Ox 91 97 98 Oxygen Delivery Method Nasal Cannula Oxygen Flow Rate (L/min) 3 Positive well nourished and well developed General Appearance ED: well developed; Negative for pallor HEENT HEENT Narrative: Normocephalic atraumatic Eyes PERRL and EOMs intact bilaterally General Eye ED: Negative for scleral icterus Neck supple Chest Wall Chest Narrative: No bony deformity or subcutaneous emphysema noted There is reproducible right anterior sternal chest pain with palpation but the patient states is the same pain she has been experiencing No overlying soft tissue changes to suggest trauma or infection Resp normal respiratory effort Resp Narrative: Breath sounds are diminished throughout with rhonchi and faint expiratory wheezing consistent history of COPD but no signs of respiratory distress Cardio regular rate and regular rhythm Rate: other Other Details: Heart is regular rate and rhythm with occasional ectopic beat noted GI normal to inspection, nondistended, normoactive bowel sounds, non-tender, non-distended and no masses GI Narrative: No voluntary guarding or rigidity or pulsatile mass Auscultation: normoactive bowel sounds Palpation: soft Extremity normal to inspection Neuro oriented x3, CN's II-XII intact bilaterally and no sensory deficits noted Sensorium / Orientation: alert Motor Exam: strength 5/5 throughout Psych mental status grossly normal Skin no rashes or lesions noted General Skin Exam: Negative for jaundice or pallor MDM MDM MDM Narrative Medical decision making narrative: Patient arrived to the ER mildly hypertensive but has a past medical history of this. She has known coronary artery disease and takes nitro secondary to recurrent chest discomfort. However she reported her chest pain was different from her chronic in order to ensure this is not acute coronary syndrome versus cardiac dysrhythmia versus lung pathology such as pneumonia or pneumothorax I did elect to perform basic laboratory studies with chest x-ray. The patient's initial and delta troponin were 52 and chart review reveals that this is near her baseline value and therefore without elevation or significant derangement from her baseline I have low concern for ACS. Her EKG also showed no sign of cardiac dysrhythmia or ischemic finding. Chest x-ray revealed no lung pathology such as pneumonia or pneumothorax. Her creatinine is elevated consistent with end-stage renal disease on dialysis but is near her baseline and there are no clinically significant electrolyte abnormality. She also reports she has had spontaneous improvement of symptoms. Therefore at this time without cardiac dysrhythmia or elevation to her troponin or lung pathology noted I do not feel need for further intervention and she is otherwise safe for discharge History & Record Review Discussion w/independent historian: Patient and Significant other Lab Data Attestation: I reviewed the patient's lab results. Labs: Laboratory Results - last 24 hr 04/13/25 04/13/25 21:20 23:20 WBC 11.7 H RBC 3.81 L Hgb 11.4 L Hct 36.0 L MCV 94.5 MCH 29.9 MCHC 31.7 L RDW Std Deviation 47.2 H RDW Coeff of Laly 13.5 Plt Count 223 MPV 11.0 Immature Gran % (Auto) 0.200 Neut % (Auto) 63.4 Lymph % (Auto) 21.5 [place] % (Auto) 10.9 H Eos % (Auto) 3.3 Baso % (Auto) 0.7 Absolute Neuts (auto) 7.4 Absolute Lymphs (auto) 2.51 Nucleated RBC % 0 Sodium 141 Potassium 3.7 Chloride 99 Carbon Dioxide 28.5 Anion Gap 13 BUN 37 H Creatinine 3.46 H Estim Creat Clear Calc 14.63 L Est GFR (MDRD) Non-Af 14 L BUN/Creatinine Ratio 10.6 Glucose 109 H Calcium 9.5 Phosphorus 4.3 Magnesium 2.2 Troponin T High Sens 52 H D Troponin T Hi Sens 2 Hr 52 H Radiography Diagnostic Testing: Clinical Impression(s) from Imaging Studies Chest X-Ray 04/13/25 22:35 IMPRESSION: No Acute Findings. Reading Location: [facility] Chest x-ray as interpreted by the emergency medicine physician reveals no acute infiltrate pneumothorax or pleural effusion Discharge Plan Triage Chief Complaint: Chest Pain ED Provider: Hoang Foster Dx/Rx/DC Orders Clinical Impression: Nonspecific chest pain, ESRD (end stage renal disease) on dialysis, Essential hypertension, Hyperlipidemia, COPD (chronic obstructive pulmonary disease) Instructions: ED Chest Pain, Uncertain Cause Prescriptions: No Action nitroglycerin 0.4 mg tablet, sublingual 0.4 mg sublingual Q5-15M PRN (Reason: chest pain) Rx Instructions: do not exceed 3 doses per episode isosorbide mononitrate 60 mg tablet extended release 24 hr 60 mg PO DAILY atorvastatin 40 mg tablet 40 mg PO QHS buspirone 10 mg tablet 10 mg PO QHS ferrous sulfate 325 mg (65 mg iron) tablet,delayed release (DR/EC) 325 mg PO QDAY ergocalciferol (vitamin D2) 1,250 mcg (50,000 unit) capsule 1,250 mcg PO QWEEK albuterol sulfate [Ventolin HFA] 1 INHALER inhaler 2 puff inhalation Q4H PRN PRN (Reason: Shortness Of Breath) Patient Comments: shortness of breath montelukast 10 MG tablet 10 mg PO QHS fluticasone propionate 50 mcg/actuation spray,suspension 2 spray INTRANASAL QHS Patient Comments: Use 1 [place] in each nostril once daily. Galina-Jose Elias 0.8 mg tablet 1 tab PO DAILY sucralfate 1 gram tablet 1 g PO DAILY PRN (Reason: GI) ipratropium-albuterol 0.5 mg-3 mg(2.5 mg base)/3 mL solution for nebulization 3 ml continuous nebulization Q6H PRN PRN (Reason: wheezing) pantoprazole 40 mg tablet,delayed release (DR/EC) 40 mg PO DAILY acetaminophen [8 Hour Pain Reliever] 650 mg tablet extended release 650 mg PO Q6H PRN (Reason: pain) calcium acetate(phosphat bind) 667 mg capsule 667 mg PO TID alendronate 70 mg tablet 70 mg PO QWEEK Trelegy Ellipta 200-62.5-25 mcg blister with device 1 ea inhalation DAILY hydrocodone-acetaminophen 5-325 mg tablet 1 tab PO Q6H PRN PRN (Reason: Pain) 3 Days Qty: 10 0RF Primary Care Provider: Julio Draper Referrals: Julio Draper MD [Primary Care Provider, Internal Medicine] Activity Restrictions/Additional Instructions: Your workup today revealed no sign of active heart damage or cardiac dysrhythmia. Please follow-up with your family doctor and/or cardiac cath lab radiology technologist for repeat evaluation and return to the ER should you have any further concerns Print Language: Emirati Disposition Disposition: Home, Self Care Discharge Date/Time: 04/14/25 00:30
[2025-04-14 00:17] VITALS: BP 134/64; PULSE 86; RESP 18; TEMP 37.2; O2SAT 98
== END 2025-04-14 00:30 | disposition home or self-care (01) ==
PROVIDERS: Emergency Provider Emergency Medicine; PCP Internal Medicine; Visit Provider Emergency Medicine
DX: R07.9 Chest pain, unspecified (principal); I12.0 Hypertensive chronic kidney disease with stage 5 chronic kidney disease or end stage renal disease; N18.6 End stage renal disease; J44.9 Chronic obstructive pulmonary disease, unspecified; I48.0 Paroxysmal atrial fibrillation; Z87.891 Personal history of nicotine dependence; I25.10 Atherosclerotic heart disease of native coronary artery without angina pectoris; E78.5 Hyperlipidemia, unspecified; Z99.2 Dependence on renal dialysis; I25.2 Old myocardial infarction; Z99.81 Dependence on supplemental oxygen; Z79.51 Long term (current) use of inhaled steroids; Z79.899 Other long term (current) drug therapy; F41.9 Anxiety disorder, unspecified; K21.9 Gastro-esophageal reflux disease without esophagitis; Z96.619 Presence of unspecified artificial shoulder joint; Z90.49 Acquired absence of other specified parts of digestive tract
CPT/HCPCS: 71045; 80048; 83735; 84100; 84484; 85025; 93005; 99285; A4216

== ENCOUNTER 2025-04-21 14:35 | Emergency (ER) | payer MEDICARE, OTHER, SELFPAY ==
[2025-04-21] VITALS (7 sets, daily range): BP systolic 120–151; BP diastolic 55–61; PULSE 83–96; RESP 14–25; TEMP 36.9–37.4; O2SAT 88–99; BMI 24.5
[2025-04-21 15:05] LABS: Hematocrit 32.8 % (37-47); Hemoglobin 10.5 g/dL (12.0-15.0); Immature Granulocytes Count 0.070 X10^3/uL (0.0-0.0); Mean Corp Hgb Conc 32.0 g/dL (32-36); Mean Corpuscular Volume 93.2 fL (81-99); Mean Platelet Vol. 10.1 fl (6.2-12.0); NRBC Flagged by Analyzer 0 % (0-5); Platelet Count 211 K/mm3 (150-450); RBC Distribution Width CV 13.6 % (11.6-14.6); RBC Distribution Width SD 46.5 fl (35.1-43.9); Red Blood Count 3.52 M/mm3 (4.2-5.4); White Blood Count 10.8 K/mm3 (4.4-11.0)
[2025-04-21 15:31] LABS: Anion Gap 11 (5-15); BUN 36 mg/dL (4-19); BUN/Creat Ratio 11.4 RATIO (10-20); Calcium,Total 9.4 mg/dL (7.6-11.0); Carbon Dioxide 26.9 mmol/L (21.0-32.0); Chloride 102 mmol/L (98-108); Glucose 97 mg/dL (70-99); Potassium 4.2 mmol/L (3.3-5.1)
[2025-04-21 16:10] LABS: Troponin T High Sensitivity 65 ng/L (<=14)
[2025-04-21 17:53] LABS: Troponin T High Sens 2 HR 62 ng/L (<=14)
== END 2025-04-21 18:52 | disposition home or self-care (01) ==
PROVIDERS: Emergency Provider Surgery; PCP Internal Medicine; Visit Provider Surgery
DX: U07.1 COVID-19 (principal); N18.6 End stage renal disease; I12.0 Hypertensive chronic kidney disease with stage 5 chronic kidney disease or end stage renal disease; J44.9 Chronic obstructive pulmonary disease, unspecified; I48.91 Unspecified atrial fibrillation; E78.5 Hyperlipidemia, unspecified; I25.10 Atherosclerotic heart disease of native coronary artery without angina pectoris; Z87.891 Personal history of nicotine dependence; Z99.2 Dependence on renal dialysis; I25.2 Old myocardial infarction; Z79.51 Long term (current) use of inhaled steroids; Z79.899 Other long term (current) drug therapy; F41.9 Anxiety disorder, unspecified; K21.9 Gastro-esophageal reflux disease without esophagitis; Z96.619 Presence of unspecified artificial shoulder joint; Z90.49 Acquired absence of other specified parts of digestive tract; Z99.81 Dependence on supplemental oxygen
CPT/HCPCS: 71045; 80048; 84484; 85025; 87631; 93005; 94640; 94760; 99284; A4216

== ENCOUNTER 2025-05-31 16:55 | Emergency (ER) | payer MEDICARE, OTHER, SELFPAY ==
[2025-05-31 16:56] VITALS: BP 137/58; PULSE 100; RESP 16; TEMP 36.1; O2SAT 98; BMI 24.3
--- NOTE | 2025-05-31 17:09 | EX.ED.DYSGE1 ---
HPI History of Present Illness Chief Complaint: Abd Pain Detail of Chief Complaint: Generalized abdominal pain with nausea vomiting during dialysis Informant: patient Onset/Context/Timing Onset: Weeks Context: Sudden Onset Timing: Intermittent and Lasts (Hours) Quality: Pain Location: Entire abdomen Current Severity: Moderate Maximum Severity: Severe Worsened by: Has occurred during dialysis for the past several weeks Relieved by: Usually goes away by the next day per patient Associated Symptoms Associated Symptoms: Nausea and vomiting Narrative Narrative: Patient is a 70-year-old woman. She has history of end-stage renal disease on hemodialysis Tuesday, Tuesday and Tuesday. She had 0.3 kg removed. Her dialysis has been decreased to 2.5 hours since she makes 1000 cc of urine daily. She denies fever, chills night sweats. She denies headache, visual, ocular auditory symptoms. She denies cardiac or respiratory symptoms. She does complain of some mild distention generalized abdominal discomfort without radiation. She is status post cholecystectomy. She is status post salpingectomy. She is not certain whether she had a hysterectomy or not. Will review all prior records. There is no history of bowel obstruction. She denies constipation diarrhea. Her bowels have been moving and moving regularly. She is still fluctuating. Prior similar symptoms: Yes Recent Illness/Hospitalization: No PFSH PFSH Medical History End stage renal disease on dialysis Pulmonary nodule Anemia of chronic disease Sepsis End stage chronic kidney disease Pneumonia End-stage renal disease (ESRD) Post-menopausal History of steroid therapy History of renal dialysis Blackout Gastric reflux Emphysema, unspecified Shortness of breath on exertion Normal Holter exam History of echocardiogram Hypertension Cardiology follow-up encounter History of heart attack History of atrial fibrillation Hemodialysis catheter malfunction Former cigarette smoker GERD (gastroesophageal reflux disease) Hyperlipidemia History of GI bleed Pleural effusion ESRD (end stage renal disease) on dialysis Essential hypertension NSTEMI (non-ST elevated myocardial infarction) EARNEST (acute kidney injury) Hx of ulcer disease Former smoker Atrial fibrillation Elevated blood pressure reading without diagnosis of hypertension Chronic hypoxemic respiratory failure Acute bronchospasm Acute exacerbation of chronic obstructive pulmonary disease Empyema of pleural space Syncope Bleeding ulcer Anemia requiring transfusions Lung nodules Pleurisy On home oxygen therapy Migraines Hyperglycemia Elevated serum creatinine Sinus tachycardia Fever and chills Dyspnea on exertion Acute bronchospasm COPD exacerbation Leukocytosis Community acquired pneumonia Anxiety Benign essential tremor Former tobacco use Pneumonia due to COVID-19 virus Asthma COPD (chronic obstructive pulmonary disease) Tobacco use Tremor Benign essential hypertension Home Medications ?Medication ?Instructions ?Recorded ?Last Taken ?Type albuterol sulfate 90 mcg/actuation 2 puff inhalation Q4H PRN PRN 08/28/15 10/30/24 History aerosol inhaler (Ventolin HFA) Shortness Of Breath montelukast 10 mg tablet 10 mg PO QHS ALLERGIES 02/25/18 10/30/24 History fluticasone propionate 50 2 spray intranasal QHS ALLERGIES 05/01/21 01/03/25 History mcg/actuation nasal spray,suspension atorvastatin 40 mg tablet 40 mg PO QHS 09/23/23 10/30/24 History isosorbide mononitrate 60 mg 60 mg PO DAILY 09/23/23 10/30/24 History tablet,extended release 24 hr nitroglycerin 0.4 mg sublingual 0.4 mg sublingual Q5-15M PRN chest 09/23/23 Unknown History tablet pain buspirone 10 mg tablet 10 mg PO QHS 09/27/23 10/30/24 History vitamin B complex-vitamin C-folic 1 tab PO DAILY 05/22/24 10/30/24 History acid 0.8 mg tablet (Galina-Jose Elias) acetaminophen 650 mg 650 mg PO Q6H PRN pain 07/23/24 10/31/24 History tablet,extended release (8 Hour Pain Reliever) ipratropium 0.5 mg-albuterol 3 mg 3 ml continuous nebulization Q6H 08/06/24 10/30/24 History (2.5 mg base)/3 mL nebulization PRN PRN wheezing soln pantoprazole 40 mg tablet,delayed 40 mg PO DAILY 08/06/24 10/30/24 History release alendronate 70 mg tablet 70 mg PO QWEEK 10/31/24 10/26/24 History calcium acetate(phosphat bind) 667 667 mg PO TID 10/31/24 10/30/24 History mg capsule fluticasone fur. 200 mcg-umeclid 1 ea inhalation DAILY 10/31/24 10/30/24 History 62.5 mcg-vilant 25 mcg inhalat.powder (Trelegy Ellipta) ferrous sulfate 325 mg (65 mg 325 mg PO QDAY 11/01/24 Unknown History iron) tablet,delayed release ergocalciferol (vitamin D2) 1,250 1,250 mcg PO QWEEK 01/24/25 Unknown History mcg (50,000 unit) capsule sucralfate 1 gram tablet 1 g PO DAILY PRN GI 01/24/25 Unknown History Allergy/AdvReac Type Severity Reaction Status Date / Time levofloxacin Allergy Intermediate confused Verified 05/31/25 16:59 cephalexin monohydrate (From Allergy Chest Verified 05/31/25 16:59 Keflex) tightness vancomycin AdvReac Mild Itching Verified 05/31/25 16:59 Family History Other Adopted Surgical History Hx of surgical procedure Hx of colonoscopy AVF (arteriovenous fistula) (03/13/24) Hx of colonoscopy History of cardiac catheterization Hx of total shoulder replacement Hx of chest tube placement Hx of esophagogastroduodenoscopy H/O bilateral salpingectomy History of herniorrhaphy Hx of tonsillectomy Hx of cholecystectomy Social History adopted: Yes household members: family housing: house Smoking Status: Former smoker how long ago did patient quit smokin years ago alcohol intake: never substance use type: does not use caffeine: Yes Type: coffee Number of servings: 1 ROS ROS ED Constitutional Constitutional ED: Denies chills, fever(s), subjective, sweats or weight loss Eyes Eyes: Denies blurry vision, change in vision or diplopia ENT ENT ED: Denies rhinorrhea or sore throat Cardiovascular Cardiovascular: Denies chest pain, orthopnea or palpitations Respiratory/Chest Respiratory/Chest: Denies cough, dyspnea, dyspnea on exertion or orthopnea Gastrointestinal Gastrointestinal: Reports abdominal pain, nausea, vomiting and other Details: Patient states she vomited 3 times. It was bilious . ; Denies constipation, diarrhea or melena Genitourinary Genitourinary ED: Denies dysuria, hematuria or urinary frequency Musculoskeletal Musculoskeletal: Denies back pain Integumentary Denies rash Hematologic/Lymphatic Hematologic/Lymphatic: Reports systems reviewed and no addt'l complaints, except as documented EXAM Physical Exam Const Vital Signs: 05/31/25 16:56 05/31/25 19:03 Temperature 97 F L Temperature Source Temporal Pulse Rate 100 102 H Respiratory Rate 16 22 H Blood Pressure 137/58 H 136/52 H Blood Pressure Mean 84 80 Pulse Ox 98 99 Oxygen Delivery Method Nasal Cannula Nasal Cannula Oxygen Flow Rate (L/min) 3 3 Positive well nourished and well developed General Appearance ED: well developed, NAD and pallor HEENT Reports dry mucous membranes HEENT Narrative: Head is atraumatic and normocephalic. Ears normal. Nares patent. Posterior pharynx is normal. Mouth ED: Yes dry mucous membranes Mouth: dry mucous membranes Eyes PERRL General Eye ED: Negative for pale conjunctiva or scleral icterus Neck no lymphadenopathy, supple and no JVD Chest Wall inspection of chest normal and palpation of chest normal Resp normal respiratory effort and clear to auscultation bilaterally Cardio regular rate, regular rhythm, S1 normal heart sound, S2 normal heart sound and no murmurs GI non-distended and no masses; Negative for normal to inspection, nondistended, normoactive bowel sounds, non-tender or hepatosplenomegaly GI Narrative: Abdomen is tympanitic. There is generalized tenderness throughout. There is no guarding or peritoneal findings. Bowel sounds are diminished. There is no palpable pulsatile mass. There is no abdominal bruit. Inspection: Negative for abdominal distention Auscultation: hypoactive bowel sounds Palpation: soft Extremity normal to inspection General Extremety ED: Negative for edema or tenderness General Extremity: Negative for edema Neuro oriented x3 and CN's II-XII intact bilaterally Sensorium / Orientation: alert Psych mental status grossly normal Skin no rashes or lesions noted, no wounds and No skin turgor normal General Skin Exam: pallor; Negative for jaundice MDM MDM MDM Narrative Medical decision making narrative: Patient's main complaint is nausea. She states that time she attempts to drink anything she vomits. She went home from dialysis. Took a Zofran ODT with no improvement. She presents because of persistent nausea and this vague generalized abdominal pain. Will treat her nausea with Zofran. Will obtain a CBC with differential. Her symptoms are not suggestive or consistent with postprandial ischemia since this happens during dialysis and not after eating. At this point she does not have any guarding or peritoneal findings and not concern that she is having any compromise of the blood supply to her colon. Furthermore her pain is not out of proportion to what she is reporting. History & Record Review Additional record(s) reviewed:: Prior outpatient record (Dr. Livan Love's note was reviewed. This was authored January 03. She was assessed for diminished access flow testing.), Prior ED visit (Patient was seen on May 08. ER note was reviewed. She was diagnosed with COVID-19 infection. She was seen April 14 for chest pain. She was discharged to home after her workup.), Prior labs and No prior records (She was seen in February 2025 for back pain by Dr. Layne.) Lab Data Attestation: I reviewed the patient's lab results. Lab results narrative: White count is slightly elevated at 13.4 thousand. There is no shift. There is no bandemia. Patient does have anemia due to end-stage renal disease. BUN and creatinine are 15 and 2.01. Labs: Laboratory Results - last 24 hr 05/31/25 17:10 WBC 13.4 H RBC 2.92 L Hgb 9.0 L Hct 28.2 L MCV 96.6 MCH 30.8 MCHC 31.9 L RDW Std Deviation 49.2 H RDW Coeff of Laly 15.2 H Plt Count 280 MPV 9.8 Immature Gran % (Auto) 0.400 Neut % (Auto) 91.7 H Lymph % (Auto) 1.3 L [place] % (Auto) 5.8 Eos % (Auto) 0.7 Baso % (Auto) 0.1 Absolute Neuts (auto) 12.3 H Absolute Lymphs (auto) 0.18 L Nucleated RBC % 0.1 Sodium 137 Potassium 4.1 Chloride 97 L Carbon Dioxide 26.7 Anion Gap 14 BUN 15 Creatinine 2.01 H Estim Creat Clear Calc 22.81 L Est GFR (MDRD) Non-Af 26 L BUN/Creatinine Ratio 7.3 L Glucose 115 H Calcium 8.2 Additional Tests and Interventions Additional Tests or Interventions: Patient was reassessed at 1856 her pain had resolved. She still is complaining of nausea. Reglan was ordered. Will reassess in 30 to 60 minutes. Treatment and Re-Evaluation :: Patient was reassessed at 1806. She states her nausea has resolved. She is no longer having abdominal pain. Will discharge to home. Discharge Plan Triage Chief Complaint: Abd Pain ED Provider: Zach Thomas Dx/Rx/DC Orders Clinical Impression: Nausea & vomiting, Acute generalized abdominal pain, ESRD (end stage renal disease) on dialysis, Hyperlipidemia Instructions: ED Vomiting (Adult) Prescriptions: No Action nitroglycerin 0.4 mg tablet, sublingual 0.4 mg sublingual Q5-15M PRN (Reason: chest pain) Rx Instructions: do not exceed 3 doses per episode isosorbide mononitrate 60 mg tablet extended release 24 hr 60 mg PO DAILY atorvastatin 40 mg tablet 40 mg PO QHS buspirone 10 mg tablet 10 mg PO QHS ferrous sulfate 325 mg (65 mg iron) tablet,delayed release (DR/EC) 325 mg PO QDAY ergocalciferol (vitamin D2) 1,250 mcg (50,000 unit) capsule 1,250 mcg PO QWEEK albuterol sulfate [Ventolin HFA] 1 INHALER inhaler 2 puff inhalation Q4H PRN PRN (Reason: Shortness Of Breath) Patient Comments: shortness of breath montelukast 10 MG tablet 10 mg PO QHS fluticasone propionate 50 mcg/actuation spray,suspension 2 spray INTRANASAL QHS Patient Comments: Use 1 [place] in each nostril once daily. Galina-Jose Elias 0.8 mg tablet 1 tab PO DAILY sucralfate 1 gram tablet 1 g PO DAILY PRN (Reason: GI) ipratropium-albuterol 0.5 mg-3 mg(2.5 mg base)/3 mL solution for nebulization 3 ml continuous nebulization Q6H PRN PRN (Reason: wheezing) pantoprazole 40 mg tablet,delayed release (DR/EC) 40 mg PO DAILY acetaminophen [8 Hour Pain Reliever] 650 mg tablet extended release 650 mg PO Q6H PRN (Reason: pain) calcium acetate(phosphat bind) 667 mg capsule 667 mg PO TID alendronate 70 mg tablet 70 mg PO QWEEK Trelegy Ellipta 200-62.5-25 mcg blister with device 1 ea inhalation DAILY Primary Care Provider: Julio Draper Referrals: Julio Draper MD [Primary Care Provider, Internal Medicine] - As Needed Print Language: Pakistani Disposition Disposition: Home, Self Care
[2025-05-31 17:32] LABS: Hematocrit 28.2 % (37-47); Hemoglobin 9.0 g/dL (12.0-15.0); Immature Granulocytes Count 0.060 X10^3/uL (0.0-0.0); Mean Corp Hgb Conc 31.9 g/dL (32-36); Mean Corpuscular Volume 96.6 fL (81-99); Mean Platelet Vol. 9.8 fl (6.2-12.0); NRBC Flagged by Analyzer 0.1 % (0-5); POSITIVE DIFFERENTIAL YES; Platelet Count 280 K/mm3 (150-450); RBC Distribution Width CV 15.2 % (11.6-14.6); RBC Distribution Width SD 49.2 fl (35.1-43.9); Red Blood Count 2.92 M/mm3 (4.2-5.4); White Blood Count 13.4 K/mm3 (4.4-11.0)
[2025-05-31 17:53] LABS: Anion Gap 14 (5-15); BUN 15 mg/dL (4-19); BUN/Creat Ratio 7.3 RATIO (10-20); Calcium,Total 8.2 mg/dL (7.6-11.0); Carbon Dioxide 26.7 mmol/L (21.0-32.0); Chloride 97 mmol/L (98-108); Estimated Creatinine Clearance 22.81 ml/min (50-250); Glucose 115 mg/dL (70-99); Potassium 4.1 mmol/L (3.3-5.1)
--- OUTSIDE RECORDS SUMMARY | 2025-05-31 18:08 | XMS RPT_ITS | CCD ---
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 Gabby Ignacio Attending Provider Dr. Alan Riddle Attending Provider PHYSICIAN, NONE Attending Unavailable PHYSICIAN, NONE Primary Care Unavailable Dr. Julio Draper Primary Care Provider Dr. Mikael Swartz Emergency Provider Kor, Dr. Gabby Ignacio Admit Provider Korkierra, Dr. Gabby Ignacio Attending Provider Korkierra, Dr. Gabyb Ignacio Other Provider Dr. Kapil Doyle Other Provider Dr. Adrian Nieves Other Provider Dr. Pao Weeks Other Provider Unavailable Dr. Ford Graff Other Provider Unavailab charlene Jovel CIRCUIT BOARD REPAIR TECHNICIAN, CIRCUIT BOARD REPAIR TECHNICIAN-C Sheridan Other Provider Dr. Alayna Saalzar Attending Provider Dr. Adrian Nieves Referring Provider [...] Referring Provider MD Guido Oliveira Emergency Provider [phone] Eids Mayo Admit Provider Unavailable Dr. Edis Mayo [...] Ford Graff Other Provider Unavailab charlene Jovel CIRCUIT BOARD REPAIR TECHNICIAN, CIRCUIT BOARD REPAIR TECHNICIAN-C Sheridan Other Provider Dr. Adrian Nieves Attending [...] Attending Provider MD Guido Oliveira Emergency Provider [phone] Edis Mayo Admit Provider Unavailable Dr. [...] Care Provider Magali Nieves MD Unavailable Sridevi RESORT MANAGER.HEAD SAWYER, Tasha M Unavailable JULIO DRAPER Primary Care [...] Provider Dr. Robel Funk DO Other Provider Baron DORANTES, Dr. Kim Primary Care Provider Ivan DORANTES, Dr. Licona Attending Provider [phone] Livan Love MD Referring Provider Ivan DORANTES, Dr. Licona Other Provider Baron DORANTES, Dr. Kim Referring Provider Cheryl Babcock Attending Provider Lorna Stout Attending Provider Baron DORANTES, Dr. Kim Primary Care Provider Ivan DORANTES, Dr. Licona Attending Provider Ivan DORANTES, Dr. Licona Referring Provider Elverta MD, Dr. Licona Other Provider Charlene PRUETT, Dr. Vieira Attending Provider Charlene PRUETT, Dr. Vieira Emergency Provider Baron DORANTES, Dr. Kim Referring Provider Cheryl Babcock Attending Provider Lorna Stout Attending Provider Lorna Stout Referring Provider Martin DORANTES, Dr. Catalan Attending Provider Baron DORANTES, Dr. Kim Primary Care Provider Charlene PRUETT, Dr. Vieira Attending Provider Charlene PRUETT, Dr. Vieira Emergency Provider Baron DORANTES, Dr. Kim Referring Provider Ivan DORANTES, Dr. Licona Attending Provider [phone] Ivan DORANTES, Dr. Licona Referring Provider [phone] Ivan DORANTES, Dr. Licona Other Provider Dr. Livan Murry DO Referring Provider Dr. Livan Murry DO Emergency Provider DRAPER, KEHINDE Primary Care Unavailable LUNA SWARTZ Referring Unavailable DRAPER, KEHINDE Attending Unavailable DRAPER, KEHINDE Primary Care Unavailable DRAPER, KEHINDE Primary Care Unavailable MAGALI NIEVES Referring Unavailable MAGALI NIEVES Attending Unavailable DRAPER, KEHINDE Primary Care Unavailable DRAPER, KEHINDE Attending Unavailable DRAPER, KEHINDE Primary Care Unavailable MAGALI NIEVES Referring Unavailable JEAN-PIERRE VITALE Attending Unavailable DRAPER, KEHINDE Primary Care Unavailable DRAPER, KEHINDE Attending Unavailable SELF Referring Unavailable DRAPER, KEHINDE Attending Unavailable DRAPER, KEHINDE Primary Care Unavailable DRAPER, KEHINDE Attending Unavailable SELF Referring Unavailable DRAPER, KEHINDE Primary Care Unavailable DRAPER, KEHINDE Referring Unavailable DRAPER, KEHINDE Primary Care Unavailable DRAPER, KEHINDE Primary Care Unavailable DRPAER, KEHINDE Referring Unavailable DRAPER, KEHINDE Primary Care Unavailable MAGALI NIEVES Referring Unavailable JUNIOR GARDUNO Attending Unavailable DRAPER, KEHINDE Primary Care Unavailable DRAPER, KEHINDE Primary Care Unavailable MAGALI NIEVES Attending Unavailable DRAPER, KEHINDE Primary Care Unavailable DRAPER, KEHINDE Attending Unavailable DRAPER, KEHINDE Primary Care Unavailable DRAPER, KEHINDE Referring Unavailable DRAPER, KEHINDE Attending Unavailable DRAPER, KEHINDE Primary Care Unavailable DRAPER, KEHINDE Attending Unavailable DRAPER, KEHINDE Primary Care Unavailable DRAPER, KEHINDE Primary Care Unavailable DRAPER, KEHINDE Attending Unavailable SELF Referring Unavailable DRAPER, KEHINDE Primary Care Unavailable DRAPER, KEHINDE Attending Unavailable JEAN-PIERRE VITALE Attending Unavailable DRAPER, KEHINDE Primary Care Unavailable DRAPER, KEHINDE Primary Care Unavailable DRAPER, KEHINDE Attending Unavailable DRAPER, KEHINDE Primary Care Unavailable DRAPER, KEHINDE Referring Unavailable Draper , Dr. Kim Primary Care Physician Ivan DORANTES, Dr. Licona Attending Physician Ivan DORANTES, Dr. Licona Nurse Practitioner Baron DORANTES, Dr. Kim Referring Provider Lorna Stout Attending Physician Dr. Livan Murry DO Attending Physician Dr. Livan Murry DO Emergency Department Physi jay Hubert PRUETT, Dr. Bolton Attending Physician Dr. Hoang Foster DO Emergency Department Physic jess Paul PRUETT, Dr. Lazaro Emergency Departmen t Physician Baron, Julio Primary Care Unavailable Yemi Celaya Admitting Unavailable Yemi Celaya Attending Unavailable Adelia Lawson Consulting Unavailable Livan Love Attending Unavailable Draper, Julio Primary Care Unavailable Elverta, Livan Referring Unavailable Elverta, Livan Attending Unavailable Elverta, Livan Referring Unavailable Draper, Julio Primary Care Unavailable Renny, Jayaprakas Consulting Unavailable Draper, Julio Primary Care Unavailable Koram, Gabby Sandee Attending Unavailable Koram, Agbby Sandee Admitting Unavailable Koram, Gabby Sandee Consulting Unavailable Draper, Julio Primary Care Unavailable Chris January Admitting Unavailable Chris, January Consulting Unavailable Diana Santillan Attending Unavailable Renny, Jayaprakas Consulting Unavailable Mihai Izaguirre Consulting Unavailable Elverta, Livan Attending Unavailable Elverta, Livan Referring Unavailable Draper, Julio Primary Care Unavailable Lorna Dasilva Attending Unavailabl e Lorna Dasilva Referring Unavailabl e Draper, Julio Primary Care Unavailable Yomi, Yemi Admitting Unavailable Draper, Julio Primary Care Unavailable Renny, Jayaprakas Consulting Unavailable Robel Funk Attending Unavailable Yomi, Yemi Consulting Unavailable Draper, Julio Primary Care Unavailable Dariel Combs Attending Unavailable Solo Perry Consulting Unavailable Cheryl Littlejohn Attending Unavailable Draper, Julio Referring Unavailable Draper, Julio Primary Care Unavailable Kelsea Montague Attending Unavailable Draper, Julio Referring Unavailable Draper, Julio Primary Care Unavailable Alayna Salazar Attending Unavailable Lorna Dasilva Referring Unavailabl e Draper, Julio Primary Care Unavailable Draper, Julio Primary Care Unavailable Dariel Combs Attending Unavailable Draper, Julio Primary Care Unavailable Schwiger, Livan Attending Unavailable Schwiger, Livan Referring Unavailable Draper, Julio Primary Care Unavailable Hoang Foster Attending Unavailable Draper, Julio Primary Care Unavailable Tejas Miller Attending Unavailabl e Draper, Julio Primary Care Unavailable Schwiger, Livan Attending Unavailable Rosmery Perezyn Admitting Unavailable Mihai Izaguirre Attending Unavailable Draper, Julio Primary Care Unavailable January Perez Consulting Unavailable Renny, Jayaprakas Consulting Unavailable Tristen Izaguirreolas F Consulting Unavailable Diana Santillan Attending Unavailable Diana Santillan Consulting Unavailable Renny, Jayaprakas Consulting Unavailable Koram, Gabby Sandee Attending Unavailable Koram, Gabby Sandee Admitting Unavailable Draper, Julio Primary Care Unavailable Solo Perry Consulting Unavailable Elverta, Livan Attending Unavailable Ivan, Livan Referring Unavailable Draper, Julio Primary Care Unavailable Ivan, Livan Consulting Unavailable Draper, Julio Primary Care Unavailable Dariel Combs Attending Unavailable Yomi, Yemi Consulting Unavailable Littlejohn, Cheryl Attending Unavailable Draper, Julio Referring Unavailable Draper, Julio Primary Care Unavailable Lorna Dasilva Attending Unavailabl e Draper, Julio Referring Unavailable Draper, Julio Primary Care Unavailable Lorna Dasilva Attending Unavailabl e Draper, Julio Referring Unavailable Draper, Julio Primary Care Unavailable Ivan, Livan Attending Unavailable Draper, Julio Referring Unavailable Draper, Julio Primary Care Unavailable Littlejohn, Cheryl Attending Unavailable Draper, Julio Referring Unavailable Draper, Julio Primary Care Unavailable January Perez Attending Unavailable Good, Robel Attending Unavailable Robel Funk Consulting Unavailable Ivan, Livan Attending Unavailable Elverta, Livan Referring Unavailable Draper, Julio Primary Care Unavailable Elverta, Livan Consulting Unavailable Ivan, Livan Attending Unavailable Ivan, Livan Referring Unavailable Draper, Julio Primary Care Unavailable Elverta, Livan Consulting Unavailable Draper , Dr. Kim Primary Care Physician Dr. Julio Draper MD Referring Provider [phone] Lorna Stout Attending Physician Dr. Livan Murry DO Attending Physician Dr. Livan Murry DO Referring Provider Dr. Livan Murry DO Emergency Department Physi jay Dr. Hoang Foster DO Attending Physician Dr. Hoang Foster DO Emergency Department Physic jess Paul PRUETT, Dr. Lazaro Attending Physician Paul PRUETT, Dr. Lazaro Emergency Departmen t Physician Allergies Allergy Classification Reported Allergen(s) Allergy Type Date of Onset Reaction(s) Facility (20 sources) Cephalexin; Translations: [CEPHALEXIN] Drug Allergy 6 Intolerance [facility] Work Phone: (11 sources) Cephalexin; Translations: [cephalexin monohydrate] Drug Allergy 2 Chest tightness [facility] (20 sources) Vancomycin; Translations: [VANCOMYCIN] Drug Allergy 4 Hives [facility] Comment on above: itching and hives af ter pre op vancomycin (1 source) Vancomycin Drug Allergy 5 [facility] Repository Medications Current Medications Medication Drug Class(es) Dates Sig (Normalized) Sig (Original) 8 hr acetaminophen 650 mg extended release oral tablet (20 sources) Start: 07-23-2024 take 1 tablet by mouth every six hours as needed for pain Start: 04-19-2024 End: 07-23-2024 take 2 capsules by mouth every six hours as needed for pain Acetaminophen (Tylenol) 325 mg capsule Discontinued 650 mg PO EVERY 6 HOURS as needed for pain April 18, 2024 11:00pm July 23, 2024 10:40am take 2 tablets by mo uth every six hours as needed acetaminophen (TYLENOL) 325 mg tablet Take 650 mg by mouth every 6 hours as needed. Active Comment on above: Take 650 mg by mouth every 6 hours as needed. acetaminophen 325 mg / HYDROcodone bitartrate 5 mg oral tablet (5 sources) Opioid Agonist Start: 02-09-2025 take 1 tablet by mouth every six hours as needed for pain Start: 09-19-2024 End: 09-24-2024 take 1 tablet by mouth every eight hours as needed for pain HYDROcodone-acetaminophen (NORCO) 5-325 mg per tablet Indications: Acute pain of right shoulder Take 1 tablet by mouth every 8 hours as needed for pain for up to 5 days. 15 tablet 09/19/2024 09/24/2024 Active [id number] 200 actuat albuterol 0.09 mg/actuat metered dose inhaler (20 sources) beta2-Adrenergic Agonist Start: 08-25-2023 End: 06-07-2024 take 2 puff(s) by inhalation every four [...] Vial 1 06/23/2020 05/25/2022 Discontinued Start: 08-28-2015 Start: 08-28-2015 Albuterol Sulf ate (Ventolin Hfa) [...] (20 sources) Anticholinergic, beta2-Adrenergic Agonist Start: 08-06-2024 Start: 08-06-2024 Start: 09-23-2023 End: 08-02-2024 take 1 mL by inhalation every six hours as needed for wheezing Ipratropium-Albuterol 0.5 mg-3 mg(2.5 mg base)/3 mL solution for nebulization Discontinued 3 mL INHALATION EVERY 6 HOURS as needed for shortness of breath or wheezing September 22, 2023 11:00pm August 02, 2024 10:57pm Start: 09-23-2023 End: 08-02-2024 Start: 05-01-2021 End: [...] mg oral tablet (20 sources) Bisphosphonate Start: 09-09-2024 take 1 tablet by mouth every week Start: 08-28-2021 End: 01-21-2022 take 1 tablet [...] Platelet Aggregation Inhibitor, Nonsteroidal Anti-inflammatory Drug Start: 08-04-2023 End: 09-03-2023 aspirin 81 mg chewable tablet Take 1 tablet by mouth once daily. Patient should start on August 04, 2023. 0 08/04/2023 09/03/2023 Active Comment on above: Take 1 tablet by obdulio once daily. Patient should start on August 04, 2023. B Complex-Vitamin C-Folic Acid (Galina-Jose Elias) 0.8 mg tablet (5 sources) Start: 05-22-2024 take 1 tablet by mouth once daily Start: 05-22-2024 take 1 tablet by mouth once da fartun Start: 05-22-2024 take 1 tablet by mouth once da fartun B Complex-Vitamin C-Folic Acid (Galina-Jose Elias) 0.8 mg tablet Active 1 {tbl} PO DAILY May 22, 2024 1:00am benzonatate 100 mg oral capsule (20 sources) Non-narcotic Antitussive Start: 04-21-2025 take 1 capsule by mouth three times daily as needed for cough Start: 04-21-2025 take 1 capsule by mo [facility] three times daily as needed for cough Start: 08-10-2024 End: 10-31-2024 take 2 capsules by mouth three times daily as needed for cough Benzonatate 100 mg Capsule Discontinued 200 mg PO 3 TIMES DAILY NEEDED as needed for COUGH/CONGESTION 21 7 0 August 10, 2024 12:00am October 31, 2024 9:23am budesonide 0.25 mg/ml inhalation suspension (7 sources) Corticosteroid Start: 08-03-2023 End: 09-02-2023 budesonide (PULMICORT) 0.5 mg/2 mL nebulizer solution Use 2 mL via nebulizer two times a day. 0 08/03/2023 09/02/2023 Active Comment on above: Use 2 mL via nebuliz er two times a day. busPIRone hydrochloride 10 mg oral tablet (20 sources) Start: 09-27-2023 take 1 tablet by mouth once daily at bedtime busPIRone (BUSPAR) 10 mg tablet Indications: Anxiety about health Take 1 tablet by mouth daily at bedtime. 90 tablet 3 02/14/2025 Active Start: 09-15-2023 End: 02-14-2025 take 1 tablet by mouth twice daily busPIRone (BUSPAR) 10 mg tablet Indications: Anxiety about health Take 1 tablet by mouth two times a day. 180 tablet 3 03/22/2024 02/14/2025 Discontinued Start: 08-31-2023 End: 09-13-2023 take 1 tablet by mouth twice daily busPIRone (BUSPAR) 10 mg tablet Take 1 tablet by mouth two times a day. 0 08/31/2023 09/13/2023 Discontinued Start: 06-16-2023 End: 09-27-2023 take 2 tablets by mouth twice daily Buspirone 5 mg Tablet Discontinued 10 mg PO TWICE A DAY 120 30 0 June 16, 2023 12:00am September 27, 2023 9:59am anxiety Start: 06-16-2023 Comment on above: Take 2 tablets by mo uth two times a day. Take 1 tablet by obdulio th two times a day. calcium acetate 667 mg oral capsule (19 sources) Start: 09-18-19 End: 09-18-19 take 1 capsule by mouth three times daily clopidogrel 75 mg oral tablet (7 sources) P2Y12 Platelet Inhibitor Start: 08-04-19 End: 09-03-19 clopidogrel (PLAVIX) 75 mg tablet Take 1 tablet by mouth once daily. Patient should start on August 04, 2023. 0 08/04/2023 09/03/2023 Active Comment on above: Take 1 tablet by obdulio th once daily. Patient should start on August 04, 2023. ergocalciferol 1.25 mg oral capsule (8 sources) Provitamin D2 Compound Start: 11-21-19 ferrous sulfate 325 mg delayed release oral tablet (6 sources) Start: 05-01-20 25 take 1 tablet by mouth once daily fluticasone propionate 0.05 mg/actuat metered dose nasal spray (20 sources) Corticosteroid Start: 11-16-19 End: 11-02-19 take 2 spray(s) by mouth once daily fluticasone (FLONASE) 50 mcg/actuation nasal spray Use 2 sprays in each nostril once daily. Rinse mouth after use. 1 each 11 11/01/2024 Active Start: 05-01-2021 End: 10-30-2022 Start: 05-01-2021 Fluticasone Pr opionate Active 2 SPRAY INTRANASAL AT BEDTIME April 30, 2021 11:00pm Start: 01-08-2021 End: 11-12-2021 take 1 spray(s) nasal route once daily fluticasone (FLONASE) 50 mcg/actuation nasal spray Indications: Post-nasal drip Use 1 [place] in each nostril once daily. 1 Bottle 5 01/08/2021 11/12/2021 Discontinued Comment on above: Use 1 [place] in each nostril once daily. Use 2 [...] above: Inhale 1 Puff as ins tructed. Fyqaijupdrz-Hihamyhis-Bgm anter (6 sources) Start: 10-31-2024 Start: 10-31-2024 Start: 10-31-2024 Fluticasone-Um eclidin-Vilanter (Trelegy Ellipta) 200-62.5-25 mcg blister with device Active 1 NMA INHALATION DAILY October 31, 2024 12:00am Start: 10-31-2024 bvlfwyggcbk-sjsjqahao-uostdu er (TRELEGY ELLIPTA) 200-62.5-25 mcg inhalation powder (20 sources) Start: 03-12-2025 take 1 puff(s) by inhalation once daily fsnxhdcyvqe-hjkupffyh-lpxkxwtq (TRELEGY ELLIPTA) 200-62.5-25 mcg inhalation powder Inhale 1 puff as instructed once daily. 60 each 5 03/12/2025 Active Start: 09-04-2024 End: 03-12-2025 take 1 puff(s) by inhalation once daily gcbesmvitbt-epsmcyshd-vsxxdhjq (TRELEGY ELLIPTA) 200-62.5-25 mcg inhalation powder Inhale 1 Puff as instructed once daily. 60 Each 5 09/04/2024 03/12/2025 Discontinued Start: 09-04-2024 take 1 puff(s) by inhalation once daily daoxjstjyvq-rwljrcpib-vxfhsaun (TRELEGY ELLIPTA) 200-62.5-25 mcg inhalation powder Inhale 1 Puff as instructed once daily. 60 Each 5 09/04/2024 Active 24 hr isosorbide mononitrate 60 mg extended release oral tablet (20 sources) Nitrate Vasodilator Start: 09-15-2023 End: 06-15-2024 take 1 tablet by mouth once daily, then take 1 tablet by mouth every twenty-four hours Start: 08-04-2023 End: 09-13-2023 take 1 tablet [...] take 1 tablet by mouth at bedtime Comment on above: Take 1 tablet by obdulio th daily at bedtime. nitroglycerin 0.4 mg sublingual tablet (20 sources) Nitrate Vasodilator Start: 09-23-19 Comment on above: Dissolve 0.4 mg unde [...] tablet (20 sources) Proton Pump Inhibitor Start: 08-06-2024 take 1 tablet by mouth once daily Start: 06-16-2023 End: 07-22-2023 take 1 tablet by mouth every twelve hours pantopraz[address] (PROTONIX) 40 mg tablet Take 1 tablet by mouth every 12 hours. 06/16/2023 07/22/2023 Discontinued Start: 06-16-2023 End: 08-02-2024 Pantoprazole (Protonix) 40 m g tablet,delayed release (DR/EC) Discontinued 40 mg PO TWICE A DAY May 22, 2024 12:00am August 02, 2024 10:58pm GERD 40 mg twice daily for 3 months and then once daily. Start: 06-16-2023 End: 08-02-2024 take 1 tablet by mouth once daily pantoprazole DR (PROTONIX) 40 mg tablet Indications: Duodenal ulcer Take 1 tablet by mouth once daily. 06/15/2024 Active Comment on above: Take 1 tablet by obdulio th two times a day before meals. predniSONE [...] tablet 09/19/2024 09/24/2024 Active Start: 08-10-2024 End: 02-11-2025 take 4 tablets by mouth once daily, [...] TABLET DAILY FOR 2 DAYS. 20 tablet 02/11/2025 Active Start: 08-06-2024 End: 08-06-2024 Prednisone 10 mg tablet Disc ontinued mg August 06, 2024 12:00am August 06, 2024 9:13am Start: 08-06-2024 End: 08-06-2024 Start: 08-03-2024 End: 08-10-2024 take 3 tablets by mouth once daily Prednisone 20 mg tablet Discontinued 60 mg PO DAILY August 03, 2024 12:00am August 10, 2024 11:45am Start: 08-03-2024 End: 08-10-2024 Start: 07-18-2024 End: [...] tablet Discontinued 40 mg PO DAILY 10 July 11, 2024 12:00am July 27, 2024 2:30pm Start: 04-19-2024 End: 05-22-2024 take 1 tablet by mouth twice daily Prednisone 20 mg tablet Discontinued 20 mg PO TWICE A DAY April 18, 2024 11:00pm May 22, 2024 10:15am Start: 04-16-2024 End: 05-15-2024 predniSONE (DELTASONE) 20 [...] PO DAILY 9 3 June 16, 2023 12:00am June 23, 2023 12:18pm check with PCP Start: 06-16-2023 End: 06-23-2023 Start: 06-16-2023 End: 06-23-2023 Start: 12-03-2022 End: 06-23-2023 take 2 tablets by mouth once daily Prednisone 20 mg tablet Discontinued 40 mg PO DAILY 6 June 16, 2023 12:00am June 23, 2023 12:18pm Check with PCP Start: 12-03-2022 End: 06-23-2023 take 1 tablet by mouth once daily Prednisone 20 mg tablet Discontinued 20 mg PO DAILY 3 June 16, 2023 12:00am June 23, 2023 12:18pm Start: 12-03-2022 End: 06-23-2023 take 40 mg [...] 20 mg PO TWICE A DAY 10 0 August 29, 2015 11:42am August 29, 2015 [...] tablet Disc ontinued 0 mg PO DAILY Taper: Frequency: BREAKFAST Days: 7 Hours: 0 Dose: 40 Frequency: BREAKFAST Days: 7 Hours: 0 Dose: 30 Frequency: BREAKFAST Days: 7 Hours: 0 Dose: 20 Frequency: BREAKFAST Days: 7 Hours: 0 Dose: 10 70 28 0 August 10, 2024 12:00am October 31, 2024 8:57am Please contact the information source for Taper Schedule details. Start: 08-28-2015 End: 08-29-2015 Start: 03-07-2015 End: 03-08-2015 take 6 mg by mouth once daily Prednisone 10 MG tablet Discontinued 6 mg PO DAILY March 06, 2015 11:00pm March 08, 2015 8:19am Start: 03-07-2015 End: 03-08-2015 Start: 03-07-2015 End: 03-08-2015 take 6 mg by mouth once daily Prednisone Discontinued 6 MG PO DAILY March 06, 2015 11:00pm March 08, 2015 8:19am Comment on above: Take 2 tablets by mo ut once daily for 5 days. Take 4 tabs daily fo r 3 days, then 2 tabs daily for 3 days, then 1 tab daily for 3 days with food. sucralfate 1000 mg oral tablet (20 sources) Aluminum Complex Start: 07-08-2024 End: 01-24-2025 take 1 tablet by mouth once daily as needed Start: 06-16-2023 End: 05-01-2024 Sucralfate 1 gram Tablet Dis continued 1 g PO 0700,1100,1600 90 30 1 June 23, 2023 12:19pm May 01, 2024 10:32am GI Start: 06-16-2023 End: 07-08-2024 take 1 tablet by mouth twice daily Sucralfate 1 gram tablet Discontinued 1 g PO TWICE A DAY 60 30 1 May 01, 2024 10:32am July 08, 2024 2:18am GI Start: 06-16-2023 End: 07-08-2024 Comment on above: TAKE 1 TABLET BY OBDULIO TH THREE TIMES DAILY at 7 AM, 11 AM and 4 pm Completed/Discontinued Medications Medication Drug Class(es) Dates Sig (Normalized) Sig (Original) acetaminophen 325 mg / oxyCODONE hydrochloride 5 mg oral tablet (16 sources) Opioid Agonist Start: 06-01-2023 End: 06-16-2023 Oxycodone-Acetamino phen (Percocet) 5-325 mg tablet Discontinued 1 {tbl} PO EVERY 6 HOURS as needed for pain 14 4 0 June 01, 2023 June 16, 2023 12:14pm Right lower lobe pneumonia Pleurisy Pneumonia, unspecified organism Pleurisy Start: 06-01-2023 End: 06-16-2023 Start: 06-01-2023 End: 06-16-2023 amLODIPine 5 mg oral tablet (20 sources) Dihydropyridine Calcium Channel Vincenzo Start: 09-15-2023 End: 05-22-2024 take 1 tablet by mouth once daily Amlodipine 5 mg tablet Discontinued 5 mg PO DAILY September 22, 2023 11:00pm May 22, 2024 10:14am On Hold: Hypotension in dialysis Start: 08-13-2023 [...] Discontinued 80 mg PO AT BEDTIME September 22, 2023 11:00pm September 23, 2023 6:41pm Start: 08-25-2023 End: 02-14-2025 take 1 tablet by mouth at bedtime Start: 08-03-2023 End: 09-02-2023 take 1 tablet [...] tablet Discontinued 250 mg PO DAILY October 30, 2024 11:00pm January 24, 2025 2:35pm Start: 10-31-2023 End: 11-05-2023 azithromycin (ZITHROMAX Z-PA K) 250 mg tablet Indications: Chronic obstructive pulmonary disease with acute exacerbation (HCC) Take 2 tablets day one, then, 1 tablet daily until gone. 6 tablet 10/31/2023 11/05/2023 Start: 08-28-2015 End: 08-29-2015 Azithromycin (Zithromax Z-Pa k) 250 MG tablet Discontinued 250 mg PO DIRECTED August 28, 2015 12:00am August 29, 2015 11:42am Pnbxuygfeg-Aiwfxrgi-Gcvswxzv ol (20 sources) Corticosteroid, beta2-Adrenergic Agonist Start: 02-22-2024 End: 08-06-2024 Teqpqlecox-Ebduxihb-Afatftle ol (Breztri Aerosphere) 160-9-4.8 mcg/actuation HFA aerosol inhaler Discontinued 2 NMA INHALATION TWICE A DAY February 21, 2024 11:00pm August 06, 2024 5:31am Start: 02-22-2024 End: 08-06-2024 Xxdlvzwbfc-Vvjqoyim-Nlopivxh ol (Breztri Aerosphere) 160-9-4.8 mcg/actuation HFA aerosol inhaler Discontinued 2 NMA INHALATION TWICE A DAY February 22, 2024 12:00am August 06, 2024 6:31am Start: 02-22-2024 End: 08-06-2024 Start: 02-17-2024 End: 08-15-2024 take 2 puff(s) by inhalation twice daily dquhiwnkxz-yzyjdczg-wknmstmswd (BREZTRI) 160-9-4.8 mcg/actuation HFA aerosol inhaler Inhale 2 Puffs as instructed two times a day. 10.7 g 5 02/17/2024 08/15/2024 Active Start: 05-25-2021 End: 01-21-2022 take 2 puff(s) by inhalation twice daily ogkrifrfpw-biquundh-ecbmhlccua (BREZTRI AEROSPHERE) 160-9-4.8 mcg/actuation HFA aerosol inhaler Inhale 2 Puffs as instructed twice daily. 160 g 11 05/25/2021 01/21/2022 Discontinued (Course of therapy completed) Comment on above: Inhale 2 Puffs as in structed twice daily. cefdinir 300 mg oral capsule (16 sources) Cephalosporin Antibacterial Start: End: take 1 capsule by mouth once Cefdinir 300 mg capsule Discontinued 300 mg PO ONE TIME August 06, 2024 12:00am August 06, 2024 9:11am Start: 08-06-2024 End: 08-06-2024 Start: 07-27-2024 End: 08-02-2024 take 1 capsule by mouth once Cefdinir 300 mg capsule Discontinued 300 mg PO ONE TIME July 27, 2024 12:00am August 02, 2024 10:56pm to take on Tuesday07/29/2024 Start: 07-27-2024 End: 08-02-2024 Start: 10-14-2021 End: 10-21-2021 take 1 capsule by mouth twice daily cefdinir (OMNICEF) 300 mg capsule Take 1 capsule by mouth twice daily for 7 days. 14 capsule 0 10/14/2021 10/21/2021 Active Comment on above: Take 1 capsule by mo ut twice daily for 7 days. cholecalciferol 0.025 mg oral capsule (7 sources) Vitamin D Start: 07-23-2024 End: 01-24-2025 Cholecalciferol (Vitamin D3) (Vitamin D3) 25 mcg (1,000 unit) capsule Discontinued 25 ug PO MOWEFR July 23, 2024 12:00am January 24, 2025 2:36pm PT GIVEN VITAMIN AT DIALYSIS Start: 07-23-2024 [...] 06/07/2024 Discontinued diazePAM 2 mg oral tablet (19 sources) Benzodiazepine Start: 04-09-2024 End: 05-22-2024 take 1 tablet by mouth three times daily as needed for muscle spasms Diazepam (Valium) 2 mg tablet Discontinued 2 mg PO THREE TIMES A DAY as needed for muscle spasm 10 0 April 08, 2024 11:00pm May 22, 2024 10:15am Muscle spasm End stage renal failure on [...] hours doxycycline monohydrate 100 mg oral capsule (7 sources) Tetracycline-clas s Drug Start: 08-03-2024 End: 08-10-2024 take 1 capsule by mouth twice daily Doxycycline Monohydrate 100 mg capsule Discontinued 100 mg PO TWICE A DAY 14 0 August 03, 2024 12:00am August 10, 2024 11:45am Fluticasone-Umeclidin -Vilanter (20 sources) Anticholinergic, Corticosteroid, beta2-Adrenergic Agonist Start: 08-06-2024 End: 10-31-2024 Fluticasone-Umeclidin -Vilanter (Trelegy Ellipta) 100-62.5-25 mcg blister with device Discontinued 1 NMA INHALATION DAILY August 06, 2024 12:00am October 31, 2024 9:24am breathing Start: 08-06-2024 End: 10-31-2024 Dvroyvjgoph-Cqbpxolcy-Ozrtwl er (Trelegy Ellipta) 100-62.5-25 mcg blister with device Discontinued 1 NMA INHALATION DAILY August 06, 2024 1:00am October 31, 2024 10:24am breathing Start: 08-06-2024 End: 10-31-2024 Start: 08-06-2024 Start: 05-01-2021 End: 02-22-2024 Tdayrteljxr-Jzasxhdwg-Yonmgt er (Trelegy Ellipta) 100-62.5-25 mcg blister with device Discontinued 1 NMA INHALATION DAILY April 30, 2021 11:00pm February 22, 2024 12:49pm COPD Start: 05-01-2021 End: 02-22-2024 Xuphxznonmk-Zkkutvjgm-Kccurw er (Trelegy Ellipta) 100-62.5-25 mcg blister with [...] take 1 puff(s) by inhalation once daily gvuipavflim-qzisvolel-xkkfjxkq (TRELEGY ELLIPTA) 100-62.5-25 mcg inhalation powder Inhale [...] 1200 mg PO TWICE A DAY 30 0 July 27, 2024 12:00am October 31, 2024 8:58am Start: 11-11-2022 take 2 tablets by mo uth twice daily guaiFENesin (MUCINEX) 600 mg 12 hr tablet Take 2 tablets by mouth twice daily. 60 tablet 0 11/11/2022 Active Comment on above: Take 2 tablets by mo uth twice daily. levoFLOXacin 500 mg oral tablet (20 sources) Quinolone Antimicrobial Start: 08-06-2024 End: 08-06-2024 Levofloxacin 500 mg tablet Discontinued mg DAILY August 06, 2024 12:00am August 06, 2024 9:12am Start: 07-11-2024 End: 07-23-2024 take 1 tablet by mouth once Levofloxacin 500 mg Tablet Discontinued 500 mg PO Q48@0600 1 1 0 July 11, 2024 12:00am July 23, 2024 10:35am Take one more dose 07/12 Start: 08-19-2023 [...] 750 mg PO DAILY 7 0 December 02, 2022 11:00pm June 16, 2023 12:14pm Start: 11-11-2022 End: 11-21-2022 take 1 tablet [...] DAY 60 30 0 June 16, 2023 12:00am May 22, 2024 10:14am HTN On Hold: Increased SOB, COPD symptoms Start: 06-16-2023 End: 05-22-2024 take 1 tablet by mouth every twelve hours metoprolol tartrate, short acting, (LOPRESSOR) 25 mg tablet Indications: Coronary artery disease involving [place] coronary artery of [place] heart, unspecified whether angina present Take 1 tablet by mouth every 12 hours. 180 tablet 3 03/22/2024 04/12/2024 Discontinued (Discontinued by another Health Care Provider) Comment on above: Take 1 tablet by obdulio th every 12 hours. Nebulizer Accessories misc (18 [...] as needed for nausea and vomiting April 18, 2024 11:00pm August 02, 2024 10:58pm Start: 11-02-2021 End: 01-21-2022 ondansetron orally disintegr ating (ZOFRAN ODT) 4 mg disintegrating tablet EVERY 6 HOURS NEEDED 0 11/02/2021 01/21/2022 Discontinued (Course of therapy completed) Comment on above: EVERY 6 HOURS NEE DED Take 1 tablet by obdulio th every 8 hours as needed for nausea/vomiting. oxyCODONE hydrochloride 5 mg oral tablet (14 sources) Opioid Agonist Start: End: take 1 tablet by mouth every eight hours as needed for pain Oxycodone 5 mg tablet Discontinued 5 mg PO Q8H as needed for pain 12 4 0 June 05, 2024 July 23, 2024 10:35am End-stage renal disease End stage renal disease Start: 03-13-2024 End: 03-19-2024 take 1 tablet by mouth every eight hours as needed for pain Oxycodone 5 mg tablet Discontinued 5 mg PO Q8H as needed for pain 9 3 0 March 13, 2024 March 19, 2024 9:52am End-stage renal disease End stage renal disease polyethylene glycol 3350 51893 mg powder for oral solution (20 sources) Osmotic Laxative Start: 09-23-2023 End: 08-02-2024 take 17 g by mouth once daily as needed for constipation Polyethylene Glycol 3350 17 gram/dose powder Discontinued 17 g PO DAILY as needed for constipation September 22, 2023 11:00pm August 02, 2024 10:59pm Comment on above: Take 17 g by [...] carbonate 800 mg powder for oral suspension (20 sources) Phosphate Binder Start: 09-23-2023 End: 12-08-2023 take 0.8 g by mouth three times daily at mealtime Sevelamer Carbonate 0.8 gram powder in packet Discontinued 0.8 g PO THREE TIMES A DAY September 22, 2023 11:00pm December 08, 2023 12:43pm must administer with a meal/food Start: 08-03-2023 End: 09-02-2023 take 0.8 g by mouth three times daily at mealtime sevelamer carbonate (RENVELA) 0.8 gram pwpk Take 0.8 g by mouth three times a day with meals. 0 08/03/2023 09/02/2023 Active Comment on above: Take 0.8 g by mouth three times a day with meals. Sod Sulf-Pot Chloride-Mag Sulf (7 sources) Start: 12-08-2023 End: 02-22-2024 take 1.479 tablets by mouth once Sod Sulf-Pot Chloride-Mag Sulf (Sutab) 1.479-0.188- 0.225 gram tablet Discontinued 0 PO per package directions 24 0 December 07, 2023 11:00pm February 22, 2024 12:48pm PO PER PKG DIR for colonoscopy prep Start: 12-08-2023 End: 02-22-2024 take 1.479 tablets by mouth once Sod Sulf-Pot Chloride-Mag Sulf (Sutab) 1.479-0.188- 0.225 gram tablet Discontinued 0 PO per package directions 24 0 December 08, 2023 12:00am February 22, 2024 1:48pm PO PER PKG DIR for colonoscopy prep Start: 12-08-2023 End: 02-22-2024 traMADol hydrochloride 50 mg oral tablet (7 sources) Opioid Agonist Start: 09-17-2024 End: 10-31-2024 take 1 tablet by mouth every six hours as needed for pain Tramadol 50 mg tablet Discontinued 50 mg PO EVERY 6 HOURS as needed for pain 12 September 16, 2024 11:00pm October 31, 2024 8:56am Acute pain of right shoulder Pain in [...] (NSTEMI) myocardial infarction] Onset: 4 07-23-2023 Chronic Blindness and vision defects (3 sources) Visual disturbance; Translations: [Unspecified visual disturbance] Onset: 5 02-14-2025 Episodic Cardiac dysrhythmias (20 sources) Atrial fibrillation; Translations: [Unspecified atrial fibrillation] Onset: 3 07-07-2023 Chronic Cardiac dysrhythmias (20 sources) Sinus tachycardia; Translations: [Tachycardia, unspecified] 11-30-2022 Episodic Chronic kidney disease (20 sources) End-stage renal disease; Translations: [End stage renal disease] Onset: 4 08-02-2023 Chronic Chronic obstructive pulmonary disease and bronchiectasis (20 sources) Asthma-chronic obstructive pulmonary disease overlap syndrome; Translations: [Chronic obstructive pulmonary disease, unspecified] Onset: 3 Resolved: 4 02-15-2019 Chronic Comment on above: INHALER USED Conditions associated with dizziness or vertigo (20 sources) Vertigo; Translations: [Dizziness and giddiness] Episodic Coronary atherosclerosis and other heart disease (20 sources) Coronary arteriosclerosis; Translations: [Atherosclerotic heart disease of [place] coronary artery without angina pectoris] Onset: 4 08-19-2023 Chronic Comment on above: Minimal to mild RCA disease noted on coronary angiography at [place] Deficiency and other anemia (9 sources) Anemia of chronic disease; Translations: [Anemia [...] unspecified] 06-20-2023 Episodic Diabetes mellitus without complication (20 sources) Hyperglycemia; Translations: [Hyperglycemia, unspecified] 11-30-2022 Episodic Diseases of white blood cells (20 sources) Leukocytosis; Translations: [Elevated white blood cell count, unspecified] Onset: 4 11-30-2022 Chronic Disorders of lipid metabolism (20 sources) Hyperlipidemia; Translations: [Hyperlipidemia, unspecified] Onset: 9 02-15-2019 Chronic Diverticulosis and diverticulitis (7 sources) Diverticulosis of colon; Translations: [Diverticulosis of large intestine without perforation or abscess without bleeding] 05-01-2024 Chronic Essential hypertension (20 sources) Essential hypertension; Translations: [Essential (primary) hypertension] Onset: 1 Resolved: 6 08-02-2023 Chronic Fever of unknown origin (20 sources) Fever with chills; Translations: [Fever, unspecified] [...] influenza immunization; Translations: [Encounter for immunization] Episodic Nonspecific chest pain (17 sources) Left sided chest pain; Translations: [Chest pain, unspecified] Onset: 5 03-27-2024 Episodic Nutritional deficiencies (20 sources) Undernutrition; Translations: [Mild protein-calorie malnutrition] Onset: 4 08-01-2023 Chronic Osteoporosis (20 sources) Senile osteoporosis; Translations: [Age-related osteoporosis without current pathological fracture] Onset: 2 08-28-2021 Chronic Other circulatory disease (9 sources) Arteriovenous fistula; Translations: [Arteriovenous fistula, acquired] Onset: 4 04-11-2024 Chronic Other circulatory disease (1 source) Arteriovenous fistula, acquired; Translations: [Arteriovenous fistula, acquired] Onset: 5 Chronic Other circulatory disease (10 sources) Elevated blood-pressure reading without diagnosis of hypertension; Translations: [Elevated blood-pressure reading, without diagnosis of hypertension] 07-07-2023 Episodic Other circulatory disease (3 sources) Elevated blood-pressure reading, without diagnosis of hypertension; Translations: [Elevated blood pressure reading without diagnosis of hypertension] 07-07-2023 Episodic Other circulatory disease (11 sources) H/O: atrial fibrillation; Translations: [Personal history of other diseases of the circulatory system] 07-23-2024 Episodic Other connective tissue disease (9 sources) Spasm; Translations: [Other muscle spasm] 04-12-2024 Episodic Other ear and sense organ disorders (2 sources) Impacted cerumen of bilateral ears; Translations: [Impacted cerumen, bilateral] Episodic Other gastrointestinal disorders (20 sources) History of gastrointestinal bleed; Translations: [Personal history of other diseases of the digestive system] Onset: 4 Resolved: 4 07-20-2023 Episodic Other gastrointestinal disorders (9 sources) Acquired arteriovenous malformation; Translations: [Angiodysplasia of colon without hemorrhage] 02-09-2024 Episodic Other hereditary and degenerative nervous system conditions (20 sources) Essential tremor; Translations: [Essential tremor] Onset: 8 08-29-2017 Chronic Other lower respiratory disease (3 sources) Cough; Translations: [Cough] Episodic Other lower respiratory disease (9 sources) Dyspnea; Translations: [Shortness of breath] Episodic Other lower respiratory disease (20 sources) Multiple nodules of lung; Translations: [Other nonspecific abnormal finding of lung field] Episodic Other lower respiratory disease (20 sources) Nodule of lung; Translations: [Solitary pulmonary nodule] Onset: 1 Episodic Other lower respiratory disease (2 sources) Abnormal breath sounds; Translations: [Other abnormalities of breathing] Episodic Other lower respiratory disease (18 sources) Dyspnea on exertion; Translations: [Other forms of dyspnea] 11-30-2022 Episodic Other lower respiratory disease (6 sources) Other forms of dyspnea; Translations: [Other respiratory abnormalities] Onset: 5 11-30-2022 Episodic Other lower respiratory disease (20 sources) History of chronic obstructive airway disease; Translations: [Personal history of other diseases of the respiratory system] Onset: 4 Resolved: 4 07-20-2023 Episodic Other lower respiratory disease (1 source) H/O: pneumonia; Translations: [Personal history of pneumonia (recurrent)] 10-08-2024 Episodic Other nervous system disorders (19 sources) Tremor; Translations: [Tremor, unspecified] 08-28-2015 Episodic Other non-traumatic joint disorders (14 sources) Pain in right shoulder; Translations: [Pain in joint, shoulder region] Onset: 5 09-19-2024 Episodic Other screening for suspected conditions (not mental disorders or infectious disease) (20 sources) Patient encounter status; Translations: [Encounter for screening mammogram for malignant neoplasm of breast] Onset: 4 Resolved: Episodic Other skin disorders (1 source) Nail deformity; Translations: [Other nail disorders] Episodic Other upper respiratory disease (20 sources) Acute bronchospasm; Translations: [Acute bronchospasm] 11-30-2022 Episodic Other upper respiratory disease (5 sources) Acute bronchospasm; Translations: [Acute bronchospasm] 11-30-2022 Episodic Other upper respiratory infections (1 source) Posterior rhinorrhea; Translations: [Postnasal drip] Episodic Peripheral and visceral atherosclerosis (1 source) 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; Translations: [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] Onset: 5 Chronic Pleurisy; pneumothorax; pulmonary collapse (20 sources) Pleurisy; Translations: [Pleurisy] Onset: 4 Resolved: 4 06-01-2023 Episodic Residual codes; unclassified (19 sources) Peripheral edema; Translations: [Edema, unspecified] 02-26-2018 Episodic Residual codes; unclassified (19 sources) Tobacco use and exposure - finding; Translations: [Tobacco use] 04-22-2020 Episodic Comment on above: FORMER Residual codes; unclassified (20 sources) Other specified health status; Translations: [Failure of outpatient treatment] 06-02-2023 Episodic Residual codes; unclassified (9 sources) H/O: Disorder; Translations: [Personal history of other specified conditions] 07-07-2023 Episodic Residual codes; unclassified (2 sources) Personal history of other specified conditions; Translations: [Personal history of other specified diseases] 07-09-2023 Episodic Respiratory failure; insufficiency; arrest (adult) (20 sources) Chronic hypoxemic respiratory failure; Translations: [Chronic respiratory failure with hypoxia] Onset: 3 Resolved: 4 Chronic Screening and history of mental health and substance abuse codes (20 sources) Ex-smoker; Translations: [Personal history of nicotine dependence] Onset: 4 Episodic Spondylosis; intervertebral disc disorders; other back problems (20 sources) Acute low back pain; Translations: [Acute right-sided low back pain without sciatica] Onset: 6 Resolved: 7 Episodic Syncope (19 sources) Syncope; Translations: [Syncope and collapse] 06-20-2023 Episodic Unclassified (1 source) Acute pain of right shoulder 09-20-2024 Unclassified (1 source) Ground glass opacity present on imaging of lung 11-16-2024 Unclassified (1 source) Bilateral flank pain; Translations: [Bilateral flank pain] Onset: 5 Viral infection (7 sources) Disease caused by 2019-nCoV; Translations: [COVID-19] Episodic Viral infection (1 source) COVID-19; Translations: [COVID-19] Onset: 5 Past or Other Problems Problem Classification Problem Date Documented Da te Episodic/Chronic Acute bronchitis (11 sources) Respiratory syncytial virus bronchitis; Translations: [Acute bronchitis due to respiratory syncytial virus] Onset: 07-17-2024 07-08-2024 Episodic Allergic reactions (20 sources) Environmental allergy; Translations: [Other allergy status, other than to drugs and biological substances] Onset: 06-29-2021 06-29-2021 Episodic Asthma (20 sources) Asthma; Translations: [Unspecified asthma, uncomplicated] Resolved: 02-15-2019 02-15-2019 Chronic Biliary tract disease (20 sources) Disorder of gallbladder; Translations: [Other specified diseases of gallbladder] Onset: 12-11-2007 Resolved: 07-20-2012 07-20-2012 Episodic Coagulation and hemorrhagic disorders (20 sources) Blood coagulation disorder; Translations: [Coagulation defect, unspecified] Onset: 08-25-2023 Resolved: 04-12-2024 08-25-2023 Chronic Complication of device; implant or graft (20 sources) Complication associated with dialysis catheter; Translations: [Breakdown (mechanical) of vascular dialysis catheter, initial encounter] Onset: 08-17-2023 Resolved: 04-12-2024 08-19-2023 Episodic Fluid and electrolyte disorders (20 sources) Hypervolemia; [...] involving emotional state] Onset: 08-27-2023 08-27-2023 Episodic Other acquired deformities (20 sources) Scoliosis [...] hypertension] Onset: 05-03-2022 Resolved: 08-25-2023 Episodic Other circulatory disease (1 source) Personal history of other diseases of the circulatory system; Translations: [Personal history of other diseases of the circulatory system] Onset: 01-24-2025 Episodic Other gastrointestinal disorders (20 sources) Irritable bowel syndrome; Translations: [Irritable bowel syndrome without diarrhea] Resolved: 07-15-2015 07-15-2015 Chronic Other gastrointestinal disorders (20 sources) Dysphagia; Translations: [Dysphagia, unspecified] Onset: 07-09-2023 07-09-2023 Episodic Other gastrointestinal disorders (20 sources) Antibiotic-associated diarrhea; Translations: [Toxic gastroenteritis and colitis] Onset: 07-14-2023 Resolved: 04-12-2024 07-14-2023 Episodic Other lower respiratory disease (20 sources) Hypoxemia; Translations: [Hypoxemia] Onset: 05-01-2021 Resolved: 08-25-2023 Episodic Other lower respiratory disease (11 sources) Other nonspecific abnormal finding of lung field; Translations: [Other nonspecific abnormal finding of lung field] Onset: 08-17-2023 06-02-2023 Episodic Other lower respiratory disease (2 sources) Shortness of breath; Translations: [Shortness of breath] Onset: 08-17-2023 Episodic Other lower respiratory disease (1 source) Solitary pulmonary nodule; Translations: [Solitary pulmonary nodule] Onset: 08-10-2024 Episodic Other nutritional; endocrine; and metabolic disorders (20 sources) Weight loss; Translations: [Abnormal weight loss] Onset: 02-09-2010 Resolved: 07-20-2012 07-20-2012 Episodic Other nutritional; endocrine; and metabolic disorders (15 sources) Weight decreased; Translations: [Abnormal weight loss] Onset: 02-09-2010 Resolved: 07-20-2012 07-20-2012 Episodic Pneumonia (except that caused by tuberculosis or sexually transmitted disease) (20 sources) Community acquired pneumonia; Translations: [Pneumonia, unspecified organism] Onset: 06-30-2023 Resolved: 04-12-2024 11-30-2022 Episodic Respiratory failure; insufficiency; arrest (adult) (20 sources) Acute respiratory failure; Translations: [Acute respiratory failure with hypoxia] Onset: 07-24-2023 Resolved: 08-25-2023 07-24-2023 Episodic Septicemia (except in labor) (20 sources) Septic shock; Translations: [Sepsis, unspecified organism] Onset: 07-11-2023 Resolved: 08-25-2023 07-11-2023 Episodic Spondylosis; intervertebral disc disorders; other back problems (20 sources) Degeneration of cervical intervertebral disc; Translations: [Other cervical disc degeneration, unspecified cervical region] Onset: 08-15-2015 Resolved: 02-10-2017 02-10-2017 Chronic Substance-related disorders (20 sources) Tobacco user; Translations: [Nicotine dependence, unspecified, uncomplicated] Onset: 11-02-2007 Resolved: 02-10-2017 02-10-2017 Chronic Unclassified (1 source) Patient encounter status 08-14-2024 Results Test Name Value Interpretation Reference Range Facility 12 Lead EKGon 04-21-2025 12 Lead EKG Normal [facility] Absolute lymphocyte countOrd ered By: ED PROVIDER on 04-21-2025 Lymphocytes Auto (Unsp spec) [#/Vol] 1.13 10*3/uL 0.83-4.51 [facility] Absolute neutrophil countOrd ered By: ED PROVIDER on 04-21-2025 Neutrophils (Bld) [#/Vol] 8.0 10*3/uL High 2.0-7.7 [facility] Anion gap in Serum or Plasma Ordered By: ED PROVIDER on 04-21-2025 Anion gap [Moles/Vol] 11 mmol/L 5-15 [facility] Automated lymphocyte count a s percentage of total leukocytesOrdered By: ED PROVIDER on 04-21-2025 Lymphocytes/100 WBC Auto (Unsp spec) 10.5 % Low - [facility] BUN/creatinine ratioOrdered By: ED PROVIDER on 04-21-2025 Urea nitrogen/Creatinine [Mass ratio] 11.4 mg/mg - [facility] Basic Metabolic Profile (BMP )on 04-21-2025 BUN/CRE 11.4 RATIO Normal - [facility] Comment on above: Performed By: #### L 500.2500, L100.0100 ####[facility] [address] [place], [address] Calcium [Mass/Vol] 9.4 mg/dL Normal 7.6-11.0 [facility] Comment on above: Performed By: #### L 500.2500, L100.0100 ####[facility] [address] [place], [address] Chloride [Moles/Vol] 102 mmol/L Normal 98-108 [facility] Comment on above: Performed By: #### L 500.2500, L100.0100 ####[facility] [address] [place], [address] CO2 [Moles/Vol] 26.9 mmol/L Normal 21.0-32.0 [facility] Comment on above: Performed By: #### L 500.2500, L100.0100 ####[facility] [address] [place], [address] Creatinine [Mass/Vol] 3.11 mg/dL High 0.70-1.20 [facility] Comment on above: Performed By: #### L 500.2500, L100.0100 ####[facility] [address] [place], [address] GAP 11 Normal 5-15 [facility] Comment on above: Performed By: #### L 500.2500, L100.0100 ####[facility] [address] [place], [address] GFR/1.73 sq M.predicted among non-blacks MDRD (S/P/Bld) [Vol rate/Area] 16 mL/min/{1.73_m2} Low >60 [facility] Comment on above: Result Comment: mL/m in/1.73m2 CKD-EPI Creatinine Equation (2020) Performed By: #### L 500.2500, L100.0100 ####[facility] [address] [place], [address] Glucose [Mass/Vol] 97 mg/dL Normal 70-99 [facility] Comment on above: Performed By: #### L 500.2500, L100.0100 ####[facility] [address] [place], [address] Potassium [Moles/Vol] 4.2 mmol/L Normal 3.3-5.1 [facility] Comment on above: Performed By: #### L 500.2500, L100.0100 ####[facility] [address] [place], [address] Sodium [Moles/Vol] 140 mmol/L Normal 133-145 [facility] Comment on above: Performed By: #### L 500.2500, L100.0100 ####[facility] [address] [place], [address] Urea nitrogen [Mass/Vol] 36 mg/dL High 4-19 [facility] Comment on above: Performed By: #### L 500.2500, L100.0100 ####[facility] [address] [place], [address] Basophil percentageOrdered B y: ED PROVIDER on 04-21-2025 Basophils/100 WBC (Bld) 0.5 % 0-1 [facility] CBC W/Diff, Automatedon 04-03 Absolute Lymph 1.13 X10 3/uL Normal 0.83-4.51 [facility] Comment on above: Performed By: #### L 500.2500, L100.0100 ####[facility] [address] [place], [address] Absolute Neut 8.0 X10 3/uL High 2.0-7.7 [facility] Comment on above: Performed By: #### L 500.2500, L100.0100 ####[facility] [address] [place], [address] Basophils/100 WBC (Bld) 0.5 % Normal 0-1 [facility] [facility] Comment on above: Performed By: #### L 500.2500, L100.0100 ####[facility] [address] [place], [address] Eosinophils/100 WBC (Bld) 2.6 % Normal 0-5 [facility] Comment on above: Performed By: #### L 500.2500, L100.0100 ####[facility] [address] [place], [address] Erythrocyte distribution width (RBC) [Ratio] 13.6 % Normal 11.6-14.6 [facility] Comment on above: Performed By: #### L 500.2500, L100.0100 ####[facility] [address] [place], [address] Hematocrit (Bld) [Volume fraction] 32.8 % Low 37-47 [facility] Comment on above: Performed By: #### L 500.2500, L100.0100 ####[facility] [address] [place], [address] Hemoglobin (Bld) [Mass/Vol] 10.5 g/dL Low 12.0-15.0 [facility] Comment on above: Performed By: #### L 500.2500, L100.0100 ####[facility] [address] [place], [address] IG% 0.700 Normal 0.0-0.9 [facility] Comment on above: Result Comment: IG% - Immature Granulocytes (promyelocytes, myelocytes andmetamyelocytes) > 1% indicates that a LEFT SHIFT is Present. Performed By: #### L 500.2500, L100.0100 ####[facility] [address] [place], [address] Lymphocytes/100 WBC (Bld) 10.5 % Low 19-41 [facility] Comment on above: Performed By: #### L 500.2500, L100.0100 ####[facility] [address] [place], [address] MCH (RBC) [Entitic mass] 29.8 pg Normal 27.0-32.0 [facility] Comment on above: Performed By: #### L 500.2500, L100.0100 ####[facility] [address] [place], [address] MCHC (RBC) [Mass/Vol] 32.0 g/dL Normal 32-36 [facility] Comment on above: Performed By: #### L 500.2500, L100.0100 ####[facility] [address] [place], [address] MCV (RBC) [Entitic vol] 93.2 fL Normal 81-99 [facility] Comment on above: Performed By: #### L 500.2500, L100.0100 ####[facility] [address] [place], [address] Monocytes/100 WBC (Bld) 11.3 % High 0-10 [facility] Comment on above: Performed By: #### L 500.2500, L100.0100 ####[facility] [address] [place], [address] Neutrophils/100 WBC (Bld) 74.4 % High 47-70 [facility] Comment on above: Performed By: #### L 500.2500, L100.0100 ####[facility] [address] [place], [address] Nucleated RBC (Bld) [#/Vol] 0 10*3/uL Normal 0-5 [facility] Comment on above: Performed By: #### L 500.2500, L100.0100 ####[facility] [address] [place], [address] Platelet mean volume (Bld) [Entitic vol] 10.1 fL Normal 6.2-12.0 [facility] Comment on above: Performed By: #### L 500.2500, L100.0100 ####[facility] [address] [place], [address] Platelets (Bld) [#/Vol] 211 10*3/uL Normal 150-450 [facility] Comment on above: Performed By: #### L 500.2500, L100.0100 ####[facility] [address] [place], [address] RBC (Bld) [#/Vol] 3.52 10*6/uL Low 4.2-5.4 [facility] Comment on above: Performed By: #### L 500.2500, L100.0100 ####[facility] [address] [place], [address] RDW SD 46.5 fl High 35.1-43.9 [facility] Comment on above: Performed By: #### L 500.2500, L100.0100 ####[facility] [address] [place], [address] WBC (Bld) [#/Vol] 10.8 10*3/uL Normal 4.4-11.0 [facility] Comment on above: Performed By: #### L 500.2500, L100.0100 ####[facility] [address] [place], [address] CNOVon 04-21-2025 CNOV Office Visit (WOUCA) SNEHA CARDENAS ([id number]) 1955 F Date Time Provider Department 04/21/25 2:15 PM JUNIOR GARDUNO During your visit today, we recorded the following information about you: Temperature Pulse Respiration Blood pressure 99.2 degrees 89/minute 24/minute 126/56 Junior Garduno MD 04/21/2025 2:32 PM Signed Pt with a hx of ESRD on dialysis now feels she is having kidney pain also she is having dyspnea hx of COPD vitals reveals an o2 sat of 88% pt advised to go to the ED for eval of her complaints due to UC not able to do blood work in room will drive pt over NO CHARGE FOR VISIT Allergies As of Date: 04/21/2025 Noted Allergy Reaction KEFLEX (CEPHALEXIN) 10/04/2005 5 - Intolerance Comments: Tachycardia, palpitations. VANCOMYCIN 06/07/2024 4 - Hives Date Reviewed: 04/21/2025 Reviewed by: Alda Mcfarland LPN - Fully Assessed Reason for Visit: Cough [28] Cmt: Chest congestion, fever, thick green mucous, worsened last evening x 2 days Kidney Problem [61] Cmt: Kidneys feeling like they are being shocked x couple hrs Primary Visit Diagnosis:DEJESUS (dyspnea on exertion) [R06.09] Other Visit Diagnoses:Bilateral flank pain [R10.A3] ESRD (end stage renal disease) on dialysis ([facility]) [N18.6, Z99.2] Prescriptions as of 04/21/2025 - isosorbide mononitrate ER (IMDUR) 60 mg 24 hr tablet Take 1 tablet by mouth once daily. - montelukast (SINGULAIR) 10 mg tablet Take 1 tablet by mouth daily at bedtime. - fluticasone-umeclidin- vilanter (TRELEGY ELLIPTA) 200-62.5-25 mcg inhalation powder Inhale 1 puff as instructed once daily. - atorvastatin (LIPITOR) 40 mg tablet Take 1 tablet by mouth daily at bedtime. For cholesterol. - busPIRone (BUSPAR) 10 mg tablet Take 1 tablet by mouth daily at bedtime. - predniSONE (DELTASONE) 10 mg tablet TAKE BY MOUTH 4 TABLETS DAILY FOR 2 DAYS, THEN 3 TABLETS DAILY FOR 2 DAYS, THEN 2 TABLETS DAILY FOR 2 DAYS, THEN 1 TABLET DAILY FOR 2 DAYS. - ergocalciferol 50,000 unit capsule (VITAMIN D2, DRISDOL) Take 1 capsule by mouth one time a week. - ipratropium-albuterol (DUONEB) 0.5 mg-3 mg(2.5 mg base)/3 mL nebu Inhale 3 mL as instructed every 4 hours as needed for wheezing/shortness of breath. - fluticasone (FLONASE) 50 mcg/actuation nasal spray Use 2 sprays in each nostril once daily. Rinse mouth after use. - calcium acetate,phosphat bind, (PHOSLO) 667 mg capsule Take 667 mg by mouth three times a day. - sucralfate (CARAFATE) 1 gram tablet Take 1 tablet by mouth two times a day. - pantoprazole DR (PROTONIX) 40 mg tablet Take 1 tablet by mouth once daily. - albuterol HFA (PROAIR HFA) 90 mcg/actuation inhaler Inhale 2 Puffs as instructed every 4 hours as needed for wheezing/shortness of breath. - OXYGEN, HOME THERAPY, Inhale 3 L/min as instructed as directed. 3L NC continuous, up to 4L with exertion - acetaminophen (TYLENOL) 325 mg tablet Take 650 mg by mouth every 6 hours as needed. - nitroglycerin sublingual (NITROSTAT) 0.4 mg SL tablet Dissolve 0.4 mg under the tongue every 5 minutes as needed for chest pain. Problem List As Of Date 04/21/2025 Noted Resolved Tobacco use disorder [F17.200] 11/02/2007 [...] (HCC) [A41.9, R65.21] 07/11/2023 08/25/2023 Antibiotic-associated diarrhea (more content not included)... Normal [facility] Carbon dioxide, total [Moles /volume] in Central venous bloodOrdered By: ED PROVIDER on 04-21-2025 CO2 [Moles/Vol] 26.9 mmol/L 21.0-32.0 [facility] Chest 1 View (Portable)on Chest 1 View (Portable) Normal [facility] Chloride assayOrdered By: ED PROVIDER on 04-21-2025 Chloride [Moles/Vol] 102 mmol/L 98-108 [facility] Electrocardiogram reportOrde red By: Alan Riddle on 04-21-2025 EKG study [facility] [address] [place] [address] 12 Lead EKG 04/21/25 1503 MR#: [id number] Acct: [id number] Name: SNEHA CARDENAS Rep #:[id number] : 1955 69 From: Alan Riddle MD Attending Dr: Status: DEP E R Ordering Dr: Tejas Miller ate: 04/21/25 Location: ED Sex: F C Admitted: Test Reason : SOB Blood Pressure : */* mmHG Vent. Rate : 86 BPM Atrial Rate : 86 BPM P-R Int : 186 ms QRS Dur : 82 ms QT Int : 366 ms P-R-T Axes : 20 74 31 degrees QTcB Int : 437 ms Normal sinus rhythm Normal ECG Confirmed by ROB DORANTES, ALAN ([id number]), editor at large EDGARD HURTADO ([id number]) on 0:39:29 AM Referred By: Confirmed By: ALAN RIDDLE MD 04/22/25 103 Date _ Alan Riddle MD CC: Dr. Tejas Miller DO; Dr. Julio Draper MD ~ Signed [facility] Other Phone: Emergency Department Summary on 04-21-2025 Emergency Department Summary Normal [facility] Eosinophil percentageOrdered By: ED PROVIDER on 04-21-2025 Eosinophils/100 WBC (Bld) 2.6 % 0-5 [facility] Erythrocyte distribution wid th ratioOrdered By: ED PROVIDER on 04-21-2025 Erythrocyte distribution width (RBC) [Ratio] 13.6 % 11.6-14.6 [facility] Erythrocyte distribution wid th standard deviationOrdered By: ED PROVIDER on 04-21-2025 Erythrocyte distribution width (RBC) [Ratio] 46.5 fl High 35.1-43.9 [facility] Glomerular filtration rate ( GFR) estimation/1.73 sq m using serum, plasma, or whole bOrdered By: ED PROVIDER on 04-21-2025 GFR/1.73 sq M.predicted among non-blacks MDRD (S/P/Bld) [Vol rate/Area] 16 mL/min/{1.73_m2} Low >60 [facility] Comment on above: mL/min/1.73m2 CKD-EP I Creatinine Equation (2020) Hematocrit Auto (Bld) [Volum e fraction]Ordered By: ED PROVIDER on 04-21-2025 Hematocrit (Bld) [Volume fraction] 32.8 % Low 37-47 [facility] Hemoglobin measurementOrdere d By: ED PROVIDER on 04-21-2025 Hemoglobin (Bld) [Mass/Vol] 10.5 g/dL Low 12.0-15.0 [facility] Immature granulocytes/100 WB C Auto (Bld)Ordered By: ED PROVIDER on 04-21-2025 Immature granulocytes/100 WBC (Bld) 0.700 % 0.0-0.9 [facility] Comment on above: IG% - Immature Granu locytes (promyelocytes, myelocytes and metamyelocytes) > 1% indicates that a LEFT SHIFT is Present. Influenza virus A and B and SARS-CoV-2 (COVID-19) and Respiratory syncytial virus RNAOrdered By: Tejas Miller on 04-21-2025 SARS-CoV-2 (COVID-19) RNA FOZIA+probe Ql (Unsp spec) SARS-CoV-2 (COVID 19 PCR) Abnormal [facility] SARS-CoV-2 (COVID-19) RNA FOZIA+probe Ql (Unsp spec) SARS-CoV-2 (COVID 19 PCR) Abnormal [facility] L501.4021on 04-21-2025 Trop T High Sen 65 ng/L Invalid Interpretation Code <=14 [facility] Comment on above: Result Comment: Crit ical Result(s) Called at: 1610 by:??MICHELE MACIAS TO EDNAMILLER Results read back by same. Performed By: #### L 501.4021 ####[facility] [address] [place], [address] M100.678on 04-21-2025 M100.678 Normal [facility] Comment on above: Performed By: #### M 100.678 ####[facility] [address] [place], [address] MCV (mean corpuscular volume ) determinationOrdered By: ED PROVIDER on 04-21-2025 MCV (RBC) [Entitic vol] 93.2 fL 81-99 [facility] Mean corpuscular hemoglobin (MCH) determinationOrdered By: ED PROVIDER on 04-21-2025 MCH (RBC) [Entitic mass] 29.8 pg 27.0-32.0 [facility] Mean corpuscular hemoglobin concentration (MCHC) determinationOrdered By: ED PROVIDER on 04-21-2025 MCHC (RBC) [Mass/Vol] 32.0 g/dL 32-36 [facility] Mean platelet volume determi nationOrdered By: ED PROVIDER on 04-21-2025 Platelet mean volume (Bld) [Entitic vol] 10.1 fL 6.2-12.0 [facility] Monocyte percentageOrdered B y: ED PROVIDER on 04-21-2025 Monocytes/100 WBC (Bld) 11.3 % High 0-10 [facility] Neutrophil percentageOrdered By: ED PROVIDER on 04-21-2025 Neutrophils/100 WBC (Bld) 74.4 % High 47-70 [facility] Nucleated red blood cell per centageOrdered By: ED PROVIDER on 04-21-2025 Nucleated RBC/100 WBC (Bld) [Ratio] 0 % 0-5 [facility] Platelet countOrdered By: ED PROVIDER on 04-21-2025 Platelets (Bld) [#/Vol] 211 10*3/uL 150-450 [facility] Potassium measurement (mass/ volume)Ordered By: ED PROVIDER on 04-21-2025 Potassium (Unsp spec) [Mass/Vol] 4.2 mmol/L 3.3-5.1 [facility] RBC Auto (Bld) [#/Vol]Ordere d By: ED PROVIDER on 04-21-2025 RBC (Bld) [#/Vol] 3.52 10*6/uL Low 4.2-5.4 [facility] Serum creatinine measurement (mass/volume)Ordered By: ED PROVIDER on 04-21-2025 Creatinine [Mass/Vol] 3.11 mg/dL High 0.70-1.20 [facility] Serum glucose measurement (m ass/volume)Ordered By: ED PROVIDER on 04-21-2025 Glucose [Mass/Vol] 97 mg/dL 70-99 [facility] Serum or plasma calcium rena urement (mass/volume)Ordered By: ED PROVIDER on 04-21-2025 Calcium [Mass/Vol] 9.4 mg/dL 7.6-11.0 [facility] Serum or plasma urea nitroge n measurement (mass/volume)Ordered By: ED PROVIDER on 04-21-2025 Urea nitrogen [Mass/Vol] 36 mg/dL High 4-19 [facility] Sodium levelOrdered By: ED P SARADER on 04-21-2025 Sodium [Moles/Vol] 140 mmol/L 133-145 [facility] Troponin T HS 2 HRon 025 Trop T High Sen 62 ng/L Invalid Interpretation Code <=14 [facility] Comment on above: Result Comment: Crit ical Result(s) Called at: 1752 by:??MICHELE MAYNARD Results read back by same. Performed By: #### L 499.0042 ####[facility] [address] [place], [place], [address] Troponin T HS 4 HRon 025 Trop T High Sen Normal <=14 [facility] Comment on above: Result Comment: Canmartha ellphillip via OM: Ordered Performed By: #### L 499.0043 ####[facility] [address] [place], [place], [address] Troponin T.cardiac [Mass/vol ume] in Serum or Plasma by High sensitivity methodOrdered By: Tejas Miller on 04-21-2025 Troponin T.cardiac High sensitivity method [Mass/Vol] 62 ng/L Critically high <14 [facility] Comment on above: Critical Result(s) C alled at: 1752 by: MICHELE MAYNARD Results read back by same. Troponin T.cardiac [Mass/vol ume] in Serum or Plasma by High sensitivity methodOrdered By: ED PROVIDER on 04-21-2025 Troponin T.cardiac High sensitivity method [Mass/Vol] 65 ng/L Critically high <14 [facility] Comment on above: Delta: 52 on Critical Result(s) Called at: 1610 by: IMCHELE COLON Results read back by same. White blood cell (WBC) count Ordered By: ED PROVIDER on 04-21-2025 WBC (Bld) [#/Vol] 10.8 10*3/uL 4.4-11.0 [facility] 04-18-[address] [facility] Office Visit (INTMWS ) SNEHA CARDENAS ([id number]) 1955 F Date Time Provider Department 04/18/25 10:00 AM JULIO DRAPER INTMWS During your visit today, we recorded the following information about you: Pulse Blood pressure Weight 67/minute 132/72 61.1 kg Julio Draper MD 04/18/2025 10:58 AM Signed Subjective Snehayanira Cardenas is a 69 year old female here with Cash. Patient presents with: ER F/U Sneha had a sharp pain across her chest this weekend, aggravated by bending over. She went to the ER 04/14 and cardiac and pulmonary work up were negative. She was noted to have chest wall tenderness. Chest pain was better. She had been more active with chores at home. She declined vaccines. Her lipids needed updating, and she was fasting today. Mammogram was not yet done. Review of Systems Constitutional: Negative for chills and fever. Respiratory: Negative for cough and shortness of breath. Cardiovascular: Negative for palpitations and leg swelling. Gastrointestinal: Negative. ACTIVE [...] (Hcc) Coronary Artery Disease Anxiety About Health Vitamin D Deficiency Current Outpatient Medications Medication Sig fluticasone-umeclidin- vilanter (TRELEGY ELLIPTA) 200-62.5-25 mcg inhalation powder Inhale 1 puff as instructed once daily. atorvastatin (LIPITOR) 40 mg tablet Take 1 tablet by mouth daily at bedtime. For cholesterol. busPIRone (BUSPAR) 10 mg tablet Take 1 tablet by mouth daily at bedtime. predniSONE (DELTASONE) 10 mg tablet TAKE BY MOUTH 4 TABLETS DAILY FOR 2 DAYS, THEN 3 TABLETS DAILY FOR 2 DAYS, THEN 2 TABLETS DAILY FOR 2 DAYS, THEN 1 TABLET DAILY FOR 2 DAYS. ergocalciferol 50,000 unit capsule (VITAMIN D2, DRISDOL) Take 1 capsule by mouth one time a week. ipratropium-albuterol (DUONEB) 0.5 mg-3 mg(2.5 mg base)/3 mL nebu Inhale 3 mL as instructed every 4 hours as needed for wheezing/shortness of breath. fluticasone (FLONASE) 50 mcg/actuation nasal spray Use 2 sprays in each nostril once daily. Rinse mouth after use. calcium acetate,phosphat bind, (PHOSLO) 667 mg capsule Take 667 mg by mouth three times a day. isosorbide mononitrate ER (IMDUR) [...] hours as needed for wheezing/shortness of breath. OXYGEN, HOME THERAPY, Inhale 3 L/min as instructed as directed. 3L NC continuous, up to 4L with exertion acetaminophen (TYLENOL) 325 mg tablet Take 650 mg by mouth every 6 hours as needed. nitroglycerin sublingual (NITROSTAT) 0.4 mg SL tablet Dissolve 0.4 mg under the tongue every 5 minutes as needed for chest pain. No current facility-administered medications for this visit. Objective BP 132/72 (BP Site: Right Arm, BP Position: Sitting, BP Cuff Size: Large Adult) Pulse 67 Wt 61.1 kg (134 lb 11.2 oz) SpO2 96% BMI 23.12 kg/m? Physical Exam Constitutional: General: She is not in acute distress. Appearance: She is not ill-appearing. Comments: On wheelchair, on portable O2. Cardiovascular: Rate and Rhythm: Normal rate and regular rhythm. Heart sounds: S1 normal and S2 normal. No murmur heard. No friction rub. No gallop. Pulmonary: Effort: No respiratory distress. Breath sounds: Examination of the right-lower field reveals rales. Rales present. No wheezing. Chest: Chest wall: Tenderness (anterior chest, especially sternum) present. Musculoskeletal: Right lower leg: No edema. Left lower leg: No edema. Neurological: Mental Status: She is alert. ASSESSMENT/PLAN: 1. Other chest pain - ICD9: 786.59, ICD10: R07.89 (primary diagnosis) Atypical chest pain, symptoms are not consistent with cardiac ischemia due to nonexertional nature of symptom possible etiology include - Use topical analgesics to the chest as needed. 2. Coronary artery disease involving [place] coronary artery of [place] heart, unspecified whether angina present - ICD9: 414.01, ICD10: I25.10 - Stable. - ISOSORBIDE MONONITRATE ER 60 MG TABLET,EXTENDED RELEASE 24 HR 3. Environmental allergies - ICD9: V15.09, ICD (more content not included)... Normal [facility] Lipid 1996 panelon 5 Cholesterol [Mass/Vol] 163 mg/dL Normal <200 [facility] Comment on above: Order Comment: Speci men Type: BLOOD SPECIMENOrdering Facility: [facility] Address: [address] [place] [address] Result Comment: <200 mg/dL, Desirable 200-239 mg/dL, Borderline high >239 mg/dL, High Performed By: #### 2 4331-1 ####[facility] LABCLIA [id number] [place] [address] [place] Cholesterol in HDL [Mass/Vol] 78 mg/dL Normal >39 [facility] Comment on above: Order Comment: Speci men Type: BLOOD SPECIMENOrdering Facility: [facility] Address: [address] [place] [address] Result Comment: 40-5 9 mg/dL, Acceptable >59 mg/dL, High: Negative risk factor for coronary heart disease <40 mg/dL, Low: Positive risk factor for coronary heart disease Performed By: #### 2 4331-1 ####[facility] LABCLIA [id number] [address] [place] [facility] Cholesterol in LDL [Mass/Vol] 69 mg/dL Normal <100 [facility] Comment on above: Order Comment: Speci men Type: BLOOD SPECIMENOrdering Facility: [facility] Address: [address] [place] [address] Result Comment: <100 mg/dL, Optimal 100-129 mg/dL, Near optimal/above optimal 130-159 mg/dL, Borderline high 160-189 mg/dL, High >189 mg/dL, Very high Secondary prevention optimal LDL Cholesterol levels are recommended to be <70 mg/dL LDL cholesterol is calculated using the Lord-NIH equation. Performed By: #### 2 4331-1 ####[facility] LABIA [id number] [address] Cholesterol in LDL/Cholesterol in HDL [Mass ratio] 0.88 {ratio} Normal <2.54 [facility] Comment on above: Order Comment: Speci men Type: BLOOD SPECIMENOrdering Facility: [facility] Address: [address] [place] [address] Result Comment: Refe rence: 1. National Cholesterol Education Program ATP III Guideline At-A-Glance Quick Desk Reference: National Heart, Lung, and Blood [place]. National Institutes of Health. 2001: NIH Publication No. 01-3305. 2. An International Atherosclerosis Society position paper: global recommendations for the management of dyslipidemia: executive summary, Atherosclerosis. 2014: 232(2):410-413. Performed By: #### 2 4331-1 ####[facility] LABCLIA [id number] [address] [place] Cholesterol in VLDL [Mass/Vol] 13 mg/dL Normal <30 [facility] Comment on above: Order Comment: Speci men Type: BLOOD SPECIMENOrdering Facility: [facility] Address: [address] [place] [address] Performed By: #### 2 4331-1 ####[facility] LABCLIA [id number] [place] [address] [place] Cholesterol non HDL [Mass/Vol] 85 mg/dL Normal <130 [facility] Comment on above: Order Comment: Speci men Type: BLOOD SPECIMENOrdering Facility: [facility] Address: [address] [place] [address] Result Comment: <130 mg/dL, Optimal 130-159 mg/dL, Near optimal/above optimal 160-189 mg/dL, Borderline high 190-219 mg/dL, High >219 mg/dL, Very high Secondary prevention optimal non HDL Cholesterol levels are recommended to be <100 mg/dL Performed By: #### 2 4331-1 ####[facility] LABCLIA [id number] [place] [address] [place] Cholesterol.total/Choles terol in HDL [Mass ratio] 2.09 {ratio} Normal <5.10 [facility] Comment on above: Order Comment: Speci men Type: BLOOD SPECIMENOrdering Facility: [facility] Address: [address] [place] [address] Performed By: #### 2 4331-1 ####[facility] LABCLIA [id number] [address] [place] FASTING TIME 12 hrs Normal [facility] Comment on above: Order Comment: Speci men Type: BLOOD SPECIMENOrdering Facility: [facility] Address: [address] [place] [address] Performed By: #### 2 4331-1 ####[facility] LABCLIA [id number] [place] [address] [place] Triglyceride [Mass/Vol] 89 mg/dL Normal <150 [facility] Comment on above: Order Comment: Speci men Type: BLOOD SPECIMENOrdering Facility: [facility] Address: [address] [id number] Result Comment: <150 mg/dL, Normal 150-199 mg/dL, Borderline high 200-499 mg/dL, High >499 mg/dL, Very high Performed By: #### 2 4331-1 ####[facility] LABCLIA [id number] [address] STATES OF [facility] Electrocardiogram reportOrde red By: Alan Riddle on 04-14-2025 EKG study [facility] Services [address] [place] [address] 12 Lead EKG 04/13/256 MR#: [id number] Acct: [id number] Name: SNEHA CARDENAS Rep #:[id number] : 1955 69 From: Alan Riddle MD Attending Dr: Status: DEP E R Ordering Dr: Hoang Foster DO Date: Location: ED Sex: F C Admitted: Test Reason : CP Blood Pressure : */* mmHG Vent. Rate : 87 BPM Atrial Rate : 87 BPM P-R Int : 222 ms QRS Dur : 86 ms QT Int : 368 ms P-R-T Axes : 98 56 79 degrees QTcB Int : 442 ms Sinus rhythm with 1st degree A-V block Nonspecific ST abnormality Abnormal ECG Confirmed by ROB DORANTES, ALAN ([id number]), editor at large RACHEL APARICIO ([id number]) on 04/16/2025 7:40:12 AM Referred By: HUBERT Confirmed By: ALAN RIDDLE MD 04/16/25 0740 Date _ Alan Riddle MD CC: Dr. Julio Draper MD; Hoang Foster DO ~ Signed [facility] Other Phone: Emergency Department Summary on 04-14-2025 Emergency Department Summary Normal [facility] 12 Lead EKGon 04-13-2025 12 Lead EKG Normal [facility] Absolute lymphocyte countOrd ered By: Hoang Foster on 04-13-2025 Lymphocytes Auto (Unsp spec) [#/Vol] 2.51 10*3/uL 0.83-4.51 [facility] Absolute neutrophil countOrd ered By: Hoang Foster on 04-13-2025 Neutrophils (Bld) [#/Vol] 7.4 10*3/uL 2.0-7.7 [facility] Anion gap in Serum or Plasma Ordered By: Hoang Foster on 04-13-2025 Anion gap [Moles/Vol] 13 mmol/L 5-15 [facility] Automated lymphocyte count a s percentage of total leukocytesOrdered By: Hoang Foster on 04-13-2025 Lymphocytes/100 WBC Auto (Unsp spec) 21.5 % [facility] BUN/creatinine ratioOrdered By: Hoang Foster on 04-13-2025 Urea nitrogen/Creatinine [Mass ratio] 10.6 mg/mg - [facility] Basic Metabolic Profile (BMP )on 04-13-2025 BUN/CRE 10.6 RATIO Normal 04-22 [facility] Comment on above: Performed By: #### L 501.5200, L501.2300, L500.2500, L100.0100 ####[facility] [address] [place], [address] Calcium [Mass/Vol] 9.5 mg/dL Normal 7.6-11.0 [facility] Comment on above: Performed By: #### L 501.5200, L501.2300, L500.2500, L100.0100 ####[facility] [address] [place], [address] Chloride [Moles/Vol] 99 mmol/L Normal 98-108 [facility] Comment on above: Performed By: #### L 501.5200, L501.2300, L500.2500, L100.0100 ####[facility] [address] [place], [address] CO2 [Moles/Vol] 28.5 mmol/L Normal 21.0-32.0 [facility] Comment on above: Performed By: #### L 501.5200, L501.2300, L500.2500, L100.0100 ####[facility] [address] [place], [address] Creatinine [Mass/Vol] 3.46 mg/dL High 0.70-1.20 [facility] Comment on above: Performed By: #### L 501.5200, L501.2300, L500.2500, L100.0100 ####[facility] [address] [place], [address] ECRCL 14.63 ml/min Low 50-250 [facility] Comment on above: Performed By: #### L 501.5200, L501.2300, L500.2500, L100.0100 ####[facility] [address] [place], [address] GAP 13 Normal 5-15 [facility] Comment on above: Performed By: #### L 501.5200, L501.2300, L500.2500, L100.0100 ####[facility] [address] [place], [address] GFR/1.73 sq M.predicted among non-blacks MDRD (S/P/Bld) [Vol rate/Area] 14 mL/min/{1.73_m2} Low >60 [facility] Comment on above: Result Comment: mL/m in/1.73m2 CKD-EPI Creatinine Equation (2020) Performed By: #### L 501.5200, L501.2300, L500.2500, L100.0100 ####[facility] [address] [place], [address] Glucose [Mass/Vol] 109 mg/dL High 70-99 [facility] Comment on above: Performed By: #### L 501.5200, L501.2300, L500.2500, L100.0100 ####[facility] [address] [place], [address] Potassium [Moles/Vol] 3.7 mmol/L Normal 3.3-5.1 [facility] Comment on above: Performed By: #### L 501.5200, L501.2300, L500.2500, L100.0100 ####[facility] [address] [place], [address] Sodium [Moles/Vol] 141 mmol/L Normal 133-145 [facility] Comment on above: Performed By: #### L 501.5200, L501.2300, L500.2500, L100.0100 ####[facility] [address] [place], [address] Urea nitrogen [Mass/Vol] 37 mg/dL High 4-19 [facility] Comment on above: Performed By: #### L 501.5200, L501.2300, L500.2500, L100.0100 ####[facility] [address] [place], [address] Basophil percentageOrdered B y: Hoang Foster on 04-13-2025 Basophils/100 WBC (Bld) 0.7 % 0-1 [facility] CBC W/Diff, Automatedon 04-03 Absolute Lymph 2.51 X10 3/uL Normal 0.83-4.51 [facility] Comment on above: Performed By: #### L 501.5200, L501.2300, L500.2500, L100.0100 ####[facility] [address] [place], [address] Absolute Neut 7.4 X10 3/uL Normal 2.0-7.7 [facility] Comment on above: Performed By: #### L 501.5200, L501.2300, L500.2500, L100.0100 ####[facility] [address] [place], [address] Basophils/100 WBC (Bld) 0.7 % Normal 0-1 [facility] Comment on above: Performed By: #### L 501.5200, L501.2300, L500.2500, L100.0100 ####[facility] [address] [place], [address] Eosinophils/100 WBC (Bld) 3.3 % Normal 0-5 [facility] Comment on above: Performed By: #### L 501.5200, L501.2300, L500.2500, L100.0100 ####[facility] [address] [place], [address] Erythrocyte distribution width (RBC) [Ratio] 13.5 % Normal 11.6-14.6 [facility] Comment on above: Performed By: #### L 501.5200, L501.2300, L500.2500, L100.0100 ####[facility] [address] [place], [address] Hematocrit (Bld) [Volume fraction] 36.0 % Low 37-47 [facility] Comment on above: Performed By: #### L 501.5200, L501.2300, L500.2500, L100.0100 ####[facility] [address] [place], [address] Hemoglobin (Bld) [Mass/Vol] 11.4 g/dL Low 12.0-15.0 [facility] Comment on above: Performed By: #### L 501.5200, L501.2300, L500.2500, L100.0100 ####[facility] [address] [place], [address] IG% 0.200 Normal 0.0-0.9 [facility] Comment on above: Result Comment: IG% - Immature Granulocytes (promyelocytes, myelocytes andmetamyelocytes) > 1% indicates that a LEFT SHIFT is Present. Performed By: #### L 501.5200, L501.2300, L500.2500, L100.0100 ####[facility] [address] [place], [address] Lymphocytes/100 WBC (Bld) 21.5 % Normal 19-41 [facility] Comment on above: Performed By: #### L 501.5200, L501.2300, L500.2500, L100.0100 ####[facility] [address] [place], [address] MCH (RBC) [Entitic mass] 29.9 pg Normal 27.0-32.0 [facility] Comment on above: Performed By: #### L 501.5200, L501.2300, L500.2500, L100.0100 ####[facility] [address] [place], [address] MCHC (RBC) [Mass/Vol] 31.7 g/dL Low 32-36 [facility] Comment on above: Performed By: #### L 501.5200, L501.2300, L500.2500, L100.0100 ####[facility] [address] [place], [address] MCV (RBC) [Entitic vol] 94.5 fL Normal 81-99 [facility] Comment on above: Performed By: #### L 501.5200, L501.2300, L500.2500, L100.0100 ####[facility] [address] [place], [address] Monocytes/100 WBC (Bld) 10.9 % High 0-10 [facility] Comment on above: Performed By: #### L 501.5200, L501.2300, L500.2500, L100.0100 ####[facility] [address] [place], [address] Neutrophils/100 WBC (Bld) 63.4 % Normal 47-70 [facility] Comment on above: Performed By: #### L 501.5200, L501.2300, L500.2500, L100.0100 ####[facility] [address] [place], [address] Nucleated RBC (Bld) [#/Vol] 0 10*3/uL Normal 0-5 [facility] Comment on above: Performed By: #### L 501.5200, L501.2300, L500.2500, L100.0100 ####[facility] [address] [place], [address] Platelet mean volume (Bld) [Entitic vol] 11.0 fL Normal 6.2-12.0 [facility] Comment on above: Performed By: #### L 501.5200, L501.2300, L500.2500, L100.0100 ####[facility] [address] [place], [address] Platelets (Bld) [#/Vol] 223 10*3/uL Normal 150-450 [facility] Comment on above: Performed By: #### L 501.5200, L501.2300, L500.2500, L100.0100 ####[facility] [address] [place], [address] RBC (Bld) [#/Vol] 3.81 10*6/uL Low 4.2-5.4 [facility] Comment on above: Performed By: #### L 501.5200, L501.2300, L500.2500, L100.0100 ####[facility] [address] [place], [address] RDW SD 47.2 fl High 35.1-43.9 [facility] Comment on above: Performed By: #### L 501.5200, L501.2300, L500.2500, L100.0100 ####[facility] [address] [place], [address] WBC (Bld) [#/Vol] 11.7 10*3/uL High 4.4-11.0 [facility] Comment on above: Performed By: #### L 501.5200, L501.2300, L500.2500, L100.0100 ####[facility] [address] [place], [address] Carbon dioxide, total [Moles /volume] in Central venous bloodOrdered By: Hoang Foster on 04-13-2025 CO2 [Moles/Vol] 28.5 mmol/L 21.0-32.0 [facility] Chest 1 View (Portable)on Chest 1 View (Portable) Normal [facility] Chloride assayOrdered By: Neelima Foster on 04-13-2025 Chloride [Moles/Vol] 99 mmol/L 98-108 [facility] Eosinophil percentageOrdered By: Hoang Foster on 04-13-2025 Eosinophils/100 WBC (Bld) 3.3 % 0-5 [facility] Erythrocyte distribution wid th ratioOrdered By: Hoang Foster on 04-13-2025 Erythrocyte distribution width (RBC) [Ratio] 13.5 % 11.6-14.6 [facility] Erythrocyte distribution wid th standard deviationOrdered By: Hoang Foster on 04-13-2025 Erythrocyte distribution width (RBC) [Ratio] 47.2 fl High 35.1-43.9 [facility] Glomerular filtration rate ( GFR) estimation/1.73 sq m using serum, plasma, or whole bOrdered By: Hoang Foster on 04-13-2025 GFR/1.73 sq M.predicted among non-blacks MDRD (S/P/Bld) [Vol rate/Area] 14 mL/min/{1.73_m2} Low >60 [facility] Comment on above: mL/min/1.73m2 CKD-EP I Creatinine Equation (2020) Hematocrit Auto (Bld) [Volum e fraction]Ordered By: Hoang Foster on 04-13-2025 Hematocrit (Bld) [Volume fraction] 36.0 % Low 37-47 [facility] Hemoglobin measurementOrdere d By: Hoang Foster on 04-13-2025 Hemoglobin (Bld) [Mass/Vol] 11.4 g/dL Low 12.0-15.0 [facility] Immature granulocytes/100 WB C Auto (Bld)Ordered By: Hoang Foster on 04-13-2025 Immature granulocytes/100 WBC (Bld) 0.200 % 0.0-0.9 [facility] Comment on above: IG% - Immature Granu locytes (promyelocytes, myelocytes and metamyelocytes) > 1% indicates that a LEFT SHIFT is Present. L501.4021on 04-13-2025 Trop T High Sen 52 ng/L High <=14 [facility] Comment on above: Performed By: #### L 501.4021 ####[facility] [address] [place], [address] MCV (mean corpuscular volume ) determinationOrdered By: Hoang Foster on 04-13-2025 MCV (RBC) [Entitic vol] 94.5 fL 81-99 [facility] Magnesiumon 04-13-2025 Magnesium [Mass/Vol] 2.2 mg/dL Normal 1.5-2.2 [facility] Comment on above: Performed By: #### L 501.5200, L501.2300, L500.2500, L100.0100 ####[facility] [address] [place], [address] Magnesium measurement (mass/ volume)Ordered By: Hoang Foster on 04-13-2025 Magnesium (Unsp spec) [Mass/Vol] 2.2 mg/dL 1.5-2.2 [facility] Mean corpuscular hemoglobin (MCH) determinationOrdered By: Hoang Foster on 04-13-2025 MCH (RBC) [Entitic mass] 29.9 pg 27.0-32.0 [facility] Mean corpuscular hemoglobin concentration (MCHC) determinationOrdered By: Hoang Foster on 04-13-2025 MCHC (RBC) [Mass/Vol] 31.7 g/dL Low 32-36 [facility] Mean platelet volume determi nationOrdered By: Hoang Foster on 04-13-2025 Platelet mean volume (Bld) [Entitic vol] 11.0 fL 6.2-12.0 [facility] Monocyte percentageOrdered B y: Hoang Foster on 04-13-2025 Monocytes/100 WBC (Bld) 10.9 % High 0-10 [facility] Neutrophil percentageOrdered By: Hoang Foster on 04-13-2025 Neutrophils/100 WBC (Bld) 63.4 % 47-70 [facility] Nucleated red blood cell per centageOrdered By: Hoang Foster on 04-13-2025 Nucleated RBC/100 WBC (Bld) [Ratio] 0 % 0-5 [facility] Phosphoruson 04-13-2025 Phosphate [Mass/Vol] 4.3 mg/dL Normal 2.7-4.5 [facility] Comment on above: Performed By: #### L 501.5200, L501.2300, L500.2500, L100.0100 ####[facility] [address], [address] Platelet countOrdered By: Neelima Foster on 04-13-2025 Platelets (Bld) [#/Vol] 223 10*3/uL 150-450 [facility] Potassium measurement (mass/ volume)Ordered By: Hoang Foster on 04-13-2025 Potassium (Unsp spec) [Mass/Vol] 3.7 mmol/L 3.3-5.1 [facility] RBC Auto (Bld) [#/Vol]Ordere d By: Hoang Foster on 04-13-2025 RBC (Bld) [#/Vol] 3.81 10*6/uL Low 4.2-5.4 [facility] Serum creatinine measurement (mass/volume)Ordered By: Hoang Foster on 04-13-2025 Creatinine [Mass/Vol] 3.46 mg/dL High 0.70-1.20 [facility] Serum glucose measurement (m ass/volume)Ordered By: Hoang Foster on 04-13-2025 Glucose [Mass/Vol] 109 mg/dL High 70-99 [facility] Serum or plasma calcium rena urement (mass/volume)Ordered By: Hoang Foster on 04-13-2025 Calcium [Mass/Vol] 9.5 mg/dL 7.6-11.0 [facility] Serum or plasma urea nitroge n measurement (mass/volume)Ordered By: Hoang Foster on 04-13-2025 Urea nitrogen [Mass/Vol] 37 mg/dL High 4-19 [facility] Sodium levelOrdered By: Jakob Foster on 04-13-2025 Sodium [Moles/Vol] 141 mmol/L 133-145 [facility] Troponin T HS 2 HRon 025 Trop T High Sen 52 ng/L High <=14 [facility] Comment on above: Performed By: #### L 499.0042 ####[facility] [address] [place], [place], [id number] Troponin T.cardiac [Mass/vol ume] in Serum or Plasma by High sensitivity methodOrdered By: Hoang Foster on 04-13-2025 Troponin T.cardiac High sensitivity method [Mass/Vol] 52 ng/L High <14 [facility] Troponin T.cardiac High sensitivity method [Mass/Vol] 52 ng/L High <14 [facility] Comment on above: Delta: 47 on 5-1548 White blood cell (WBC) count Ordered By: Hoang Foster on 04-13-2025 WBC (Bld) [#/Vol] 11.7 10*3/uL High 4.4-11.0 [facility] CNOVon 04-04-2025 CNOV Office Visit (PULMWS ) SNEHA CARDENAS ([id number]) 1955 F Date Time Provider Department 04/04/25 11:45 AM MAGALI NIEVES PULMIKEY During your visit today, we recorded the following information about you: Pulse Blood pressure Weight 75/minute 130/72 62 kg Magali Nieves MD 04/04/2025 4:42 PM [facility] Respiratory [place] Note Patient name: Sneha Cardenas PCP: Julio Draper MD CC: COPD HPI: Sneha Cardenas 69 year old female former 98-qfru-cofm smoker, quitting in 2015 with PMH significant for HTN, benign tremors, COVID-pneumonia in 2020, chronic hypoxemic respiratory failure, AF not on AC due to prior GI bleed, severe COPD/emphysema, pulmonary nodules with right upper lobe ground glass opacity suspicious for adenocarcinoma in situ, history of severe pneumonia with parapneumonic effusion requiring chest tube placement, end-stage renal disease on dialysis. She has been very slow to recover from her severe infection and renal failure. Current therapy consists of Trelegy Ellipta and albuterol. She has been trying to increase her endurance. Main symptom is dyspnea with exertion. She denies wheezing, chronic cough or chest pain. Last seen in the emergency department in February for evaluation of cough and chest pain. No pneumonia. She was concerned about arrhythmia. DME: [employer] 3 to 4 L DATA: Imaging / Diagnostic Studies: DATE OF EXAM: Nov 06 2024 10:16AM [facility] 0541 - CT CHEST WO IVCON / Lung parenchyma and airways: No consolidation. No [...] endotracheal or central endobronchial lesion is identified. IMPRESSION: 1. No new or enlarging pulmonary nodules or thoracic lymphadenopathy. Slightly decreased in size of lateral right upper lobe pulmonary nodule. 2. Stable right upper lobe groundglass nodule, flat on coronal and sagittal image, likely a scarring or atelectasis. 3. Unchanged chronic small bilateral pleural effusions with pleural thickening. CHEST CT 2019 PAST MEDICAL HISTORY Diagnosis Date Age-related osteoporosis without current pathological fracture 08/28/2021 Anemia requiring transfusions 06/15/2023 Antibiotic-associated diarrhea 07/14/2023 Asthma ([facility]) Benign essential tremor Chronic obstructive pulmonary disease ([facility]) 07/25/2012 Chronic respiratory failure with hypoxia ([facility]) 11/05/2022 Coagulation defect, unspecified ([facility]) 08/25/2023 Coronary artery disease 08/19/2023 DDD (degenerative disc disease), cervical 08/15/2015 Empyema ([facility]) 07/09/2023 Environmental allergies Wheezes with hay or dust ESRD (end stage renal disease) ([facility]) Essential tremor 11/02/2007 Benign essential -- started primidone 06/03/09, Dr. Nguyễn Gastrointestinal hemorrhage associated with peptic ulcer 08/02/2023 Hemodialysis catheter malfunction 08/19/2023 History of colon polyps 2009 Tubular adenoma. Hypertension Hypoxemia 05/01/2021 Post Covid pneumonia. Irritable bowel syndrome Lung nodule Migraine headache Improved with primidone Multiple duodenal ulcers 06/30/2023 NSTEMI (non-ST elevated myocardial infarction) ([facility]) 07/20/2023 Parapneumonic effusion Pneumonia due to COVID-19 virus 05/01/2021 Pneumonia due to infectious organism 06/30/2023 Pulmonary emphysema ([facility]) 07/19/2023 Scoliosis Shock, septic ([facility]) 07/11/2023 Snoring Tobacco use disorder Quit 03/04/2015. Unspecified gastritis and gastroduodenitis without mention of hemorrhage 02/09/2010 Small ulcer on EGD 2009 Upper GI bleed 02/09/2010 ALLERGIES Allergen Reactions Keflex [Cephalexin] Intolerance Tachycardia, palpitations. Vancomycin Hives fluticasone-umeclidin- vilanter (TRELEGY ELLIPTA) 200-62.5-25 mcg inhalation powder Inhale 1 puff as instructed once daily. busPIRone (BUSPAR) 10 mg tablet Take 1 tablet by mouth daily at bedtime. predniSONE (DELTASONE) 10 mg tablet TAKE BY MOUTH 4 TABLETS DAILY FOR 2 DAYS, THEN 3 TABLETS DAILY FOR 2 DAYS, THEN 2 TABLETS DAILY FOR 2 DAYS, THEN 1 TABLET DAILY FOR 2 DAYS. ergocalciferol 50,000 unit capsule (VITAMIN D2, DRISDOL) Take 1 capsule by mouth one time a week. ipratropium-albuterol (DUONEB) 0.5 mg-3 mg(2.5 mg bas (more content not included)... Normal [facility] 03-22-2025 CNPN Telephone (INTMWS) CONORSNEHA ([id number]) 1955 F Date Time Provider Department 03/22/25 JULIO DRAPER INTMWS During your visit today, we recorded the following information about you: Le Aponte RN 03/22/2025 1:26 PM Signed Patient reports she will be dropping off [employer] pension paperwork that needs completed by her PCP. Pt asks that she is called when forms are completed, or for any questions. Ericka Christopher LPN 03/25/2025 1:10 PM Signed Rec'd to the office 03/25/25. Pcp is out until 04/02/25. Genna Lowry RN 03/27/2025 2:30 PM Signed Patient calls and states that forms need to be received by 04/03. Patient asking if Tasha can fill out forms? Please review and advise, JAMI Cannon Janice, LPN 03/29/2025 2:55 PM Addendum Forms reviewed by CIRCUIT BOARD REPAIR TECHNICIAN and notes MD or DO needs to complete them . Will ask pcp to complete when he returns to the office 04/02/25. Pt notified. Julio Draper MD 03/30/2025 1:23 PM Signed Done. Ericka Christopher LPN 04/01/2025 8:56 AM Signed Pcp completed. [facility] is requesting last 6 months of office notes too. This was printed and again there is no fax number to fax this to . Pt will have to [employer] and send back. (As done with forms). Ericka Christopher LPN 04/01/2025 8:56 AM Signed Pt notified. This will be in medical records for [employer] today after noon. Allergies As of Date: 03/22/2025 Noted Allergy Reaction KEFLEX (CEPHALEXIN) 10/04/2005 5 - Intolerance Comments: Tachycardia, palpitations. VANCOMYCIN 06/07/2024 4 - Hives Date Reviewed: 02/14/2025 Reviewed by: Anushka Alexis LPN - Fully Assessed Reason for Visit: Forms [Other] Prescriptions as of 04/01/2025 - fluticasone-umeclidin- vilanter (TRELEGY ELLIPTA) 200-62.5-25 mcg inhalation powder Inhale 1 puff as instructed once daily. - atorvastatin (LIPITOR) 40 mg tablet Take 1 tablet by mouth daily at bedtime. For cholesterol. - busPIRone (BUSPAR) 10 mg tablet Take 1 tablet by mouth daily at bedtime. - predniSONE (DELTASONE) 10 mg tablet TAKE BY MOUTH 4 TABLETS DAILY FOR 2 DAYS, THEN 3 TABLETS DAILY FOR 2 DAYS, THEN 2 TABLETS DAILY FOR 2 DAYS, THEN 1 TABLET DAILY FOR 2 DAYS. - ergocalciferol 50,000 unit capsule (VITAMIN D2, DRISDOL) Take 1 capsule by mouth one time a week. - ipratropium-albuterol (DUONEB) 0.5 mg-3 mg(2.5 mg base)/3 mL nebu Inhale 3 mL as instructed every 4 hours as needed for wheezing/shortness of breath. - fluticasone (FLONASE) 50 mcg/actuation nasal spray [...] 1 capsule by mouth once daily. - ondansetron orally disintegrating (ZOFRAN [...] as needed for wheezing/shortness of breath. - OXYGEN, HOME THERAPY, Inhale 3 L/min [...] as directed. Problem List As Of Date 03/22/2025 Noted Resolved Tobacco use disorder [F17.200] 11/02/2007 [...] Irritable bowel syndrome [K58.9] 07/15/2015 Scoliosis [M41.9] 0 (more content not included)... Normal [facility] CNOVon 02-14-2025 CNOV Office Visit (INTMWS ) SNEHA CARDENAS ([id number]) 1955 F Date Time Provider Department 02/14/25 9:20 AM JULIO DRAPER INTMWS During your visit today, we recorded the following information about you: Pulse Blood pressure Weight Height 80/minute 136/76 63.2 kg 1.626 m Julio Draper MD 02/14/2025 11:40 AM Signed Sneha Cardenas is a 69 year old female here for a Medicare wellness visit. Medicare Health Risk Assessment General Health Fair Exercise: Minutes/Day 0 min Exercise: Days/Week 0 days Alcohol: Daily Use Never Alcohol: Drinks/Day Patient does not drink Alcohol: 6 or more drinks Never Feel off balance Yes Concerns: Teeth/Dentures Yes Concerns: Sexual function No Troubled by feelings Anxious; Stressed; Lonely Frequency: Eating healthy diet Several days ADLs requiring help Grocery shopping; Housework; Bathing; Driving Safety precautions in home/vehicle Yes Smoke, vape, chews tobacco No Difficulty hearing No Difficulty seeing No Current Providers Specialists: I have reviewed specialist-related care of the patient in the medical record. Current care team: Patient Care Team: Julio Draper MD as PCP - General (Internal Medicine) Magali Nieves MD Hershberger, Naz M, RESORT MANAGER.HEAD SAWYER as Continuous Churn Buttermaker (Internal Medicine) Outside specialists seen: Livan Love MD (Vascular Surgery) Alayna Salazar MD (Cardiology) Ferny Lawson MD (Nephrology) Medical/Family history review Reviewed and updated problem list, medical/surgical/famil y/social history, medications, and allergies. Opioid use review Opioid Medications (last 90 days) No data to display Anxiety/Depression screening PHQ-2 Score: 2 (Lower risk for depression) LORRAINE-7 Score: 7 (Mild Anxiety) Recommendation: no further intervention at this time Cognitive screening Mini Cog Score: 5 Cognitive screening reviewed and No further action needed (score 3-5). Functional Observation Was the patient's Timed Up AND Go test unsteady or >= 12 seconds? No Advance Care Planning Patient was not able to provide a surrogate decision maker or written advance directives Measurements BP 136/76 (BP Site: Left Arm, BP Position: Sitting, BP Cuff Size: Large Adult) Pulse 80 Ht 162.6 cm (5' 4) Wt 63.2 kg (139 lb 5.3 oz) SpO2 95% BMI 23.92 kg/m? Vision Screening: Follows with optometry/ophthalmolog y Right: 20/200 Left: 20 00 Both: 2070 Assessment/Plan Medicare annual wellness visit, initial (Z00.) - Counseled on healthy diet and regular exercise - Fall avoidance information provided - Personalized prevention plan provided - Follow up. Right shoulder much better with massage therapy. - Referred for vision deterioration. Last eye exam was years ago. - Anxiety better. Refilled medication per patient use. Dose reduction. Julio Draper MD 02/14/2025 10:25 AM Signed Screening schedule The following prevention plan is recommended: Mammogram Screening due on 08/26/2022 Medicare Annual Wellness Visit Never done DTaP,Tdap,Td Vaccine(2 - Td or Tdap) due on 04/12/2024 Advance Directive Discussion due on 07/04/2024 LDL Cholesterol due on 08/25/2024 Depression Screening due on 11/10/2024 WHAT YOU CAN DO TO PREVENT FALLS Many falls can be prevented. By making some changes, you can lower your chances of falling. Four things YOU can do to prevent falls for you* and your caregiver 1. Begin a regular exercise program Exercise is one of the most important ways to lower your chances of falling. It makes you stronger and helps you feel better. Exercises that improve balance and coordination (like Rik Chi) are the most helpful. Lack of exercise leads to weakness and increases your chances of falling. Ask your doctor or health care provider about the best type of exercise program for you. 2. Have your health care provider review your medicines Have your doctor or pharmacist review all the medicines you take, even vygg-voe-dfuxdaw medicines. As you get older, the way medicines work in your body can change. Some medicines, or combinations of medicines, can make you sleepy or dizzy and can cause you to fall. 3. Have your vision checked Have your eyes checked by an eye doctor at least once a year. You may be wearing the wrong glasses or have a condition like glaucoma or cataracts that limits your vision. Poor vision can increase your chances of falling. 4. Make your home safer About half of all falls happen at home. To make your home safer: Remove things you can trip over (like papers, books, clothes, and shoes) from stairs and places where you walk. Remove small throw rugs or use double-sided tape to keep the rugs from slipping. Keep items you use often in cabinets you can reach easily without using a step stool. Have grab bars put in next to your toilet and in the tub or showe (more content not included)... Normal [facility] CNOVon 02-11-2025 CNOV Office Visit (INTMWS ) SNEHA CARDENAS ([id number]) 1955 F Date Time Provider Department 02/11/25 6:40 PM JULIO DRAPER INTMWS During your visit today, we recorded the following information about you: Temperature Pulse Respiration Blood pressure 97 degrees 68/minute 12/minute 116/78 Weight 63.3 kg Julio Draper MD 02/11/2025 7:00 PM Signed Subjective Sneha Mendoza Conor is a 69 year old female. Patient presents with: ER F/U: FLANK/RIGHT SHOULDER PAIN She developed right shoulder pain and upper back pain at the end of dialysis 4 days ago. Pain worsened to 10/10 severity by 02/09/25 so she went to the ED where labs, including troponin x 2 were none contributory. Chest xray, Right shoulder xray, and CT of the abdomen and pelvis were negative. She was treated with morphine and ondansetron and discharged on hydrocodone. Back pain resolved, but right shoulder pain was still 7/10 and aggravated by arm movement. Hydrocodone did not provide much relief, and she felt better taking Tylenol and prednisone 10 mg. Today at dialysis, they applied an ice pack to the shoulder which seemed to help. Pain involved the whole right shoulder but a spot in the scapula was the most tender. ACTIVE PROBLEM LIST Essential Tremor Environmental Allergies Chronic Obstructive Pulmonary Disease (Hcc) Primary Hypertension Hyperlipidemia Age-Related Osteoporosis Without Current Pathological Fracture Lung Nodule Chronic Respiratory Failure With Hypoxia (Hcc) Duodenal Ulcer Paroxysmal Atrial Fibrillation (Hcc) Anemia Requiring Transfusions Dysphagia Former Smoker Nstemi (Non-St Elevated Myocardial Infarction) ([facility]) Pleural Effusion Malnutrition of Mild Degree (Hcc) Esrd (End Stage Renal Disease) ([facility]) Coronary Artery Disease Anxiety About Health Vitamin D Deficiency Current Outpatient Medications Medication Sig ergocalciferol 50,000 unit capsule (VITAMIN D2, DRISDOL) Take 1 capsule by mouth one time a week. ipratropium-albuterol (DUONEB) 0.5 mg-3 mg(2.5 mg base)/3 [...] every 8 hours as needed for nausea/vomiting. isosorbide mononitrate ER (IMDUR) 60 mg 24 [...] tablet by mouth two times a day. acetaminophen (TYLENOL) 325 mg tablet Take 650 [...] ounces of liquid and take as directed. predniSONE (DELTASONE) 10 mg tablet TAKE BY MOUTH 4 TABLETS DAILY FOR 2 DAYS, THEN 3 TABLETS DAILY FOR 2 DAYS, THEN 2 TABLETS DAILY FOR 2 DAYS, THEN 1 TABLET DAILY FOR 2 DAYS. benzonatate (TESSALON PERLE) 100 mg capsule Take 2 capsules by mouth three times a day as needed for cough. OXYGEN, HOME THERAPY, Inhale 3 L/min as instructed as directed. 3L NC continuous, up to 4L with exertion No current facility-administered medications for this visit. Review of Systems Constitutional: Negative for fatigue and fever. Respiratory: Negative for shortness of breath. Cardiovascular: Negative for chest pain. Gastrointestinal: Negative for abdominal pain. Objective BP 116/78 Pulse 68 Temp 36.1 ?C (97 ?F) (Temporal) Resp 12 Wt 63.3 kg (139 lb 8.8 oz) SpO2 (!) 89% BMI 24.33 kg/m? Physical Exam Constitutional: General: She is not in acute distress. Appearance: She is not diaphoretic. Pulmonary: (more content not included)... Normal [facility] 12 Lead EKGon 02-09-2025 12 Lead EKG Normal [facility] Abdomen/Pelvis without Conto n 02-09-2025 Abdomen/Pelvis without Cont Normal [facility] Absolute lymphocyte countOrd ered By: Livan Murry on 02-09-2025 Lymphocytes Auto (Unsp spec) [#/Vol] 0.69 10*3/uL Low 0.83-4.51 [facility] Absolute neutrophil countOrd ered By: Livan Murry on 02-09-2025 Neutrophils (Bld) [#/Vol] 6.1 10*3/uL 2.0-7.7 [facility] Anion gap in Serum or Plasma Ordered By: Livan Murry on 02-09-2025 Anion gap [Moles/Vol] 12 mmol/L 5-15 [facility] Automated lymphocyte count a s percentage of total leukocytesOrdered By: Livan Murry on 02-09-2025 Lymphocytes/100 WBC Auto (Unsp spec) 9.6 % Low 19-41 [facility] BUN/creatinine ratioOrdered By: Livan Murry on 02-09-2025 Urea nitrogen/Creatinine [Mass ratio] 10.1 mg/mg 10- [facility] Basic Metabolic Profile (BMP )on 02-09-2025 BUN/CRE 10.1 RATIO Normal 10-20 [facility] Comment on above: Performed By: #### L 500.2500, L100.0100 ####[facility] [address] [place], [address] Calcium [Mass/Vol] 9.3 mg/dL Normal 7.6-11.0 [facility] Comment on above: Performed By: #### L 500.2500, L100.0100 ####[facility] [address] [place], [address] Chloride [Moles/Vol] 100 mmol/L Normal 98-108 [facility] Comment on above: Performed By: #### L 500.2500, L100.0100 ####[facility] [address] [place], [address] CO2 [Moles/Vol] 27.7 mmol/L Normal 21.0-32.0 [facility] Comment on above: Performed By: #### L 500.2500, L100.0100 ####[facility] [address] [place], [address] Creatinine [Mass/Vol] 3.19 mg/dL High 0.70-1.20 [facility] Comment on above: Performed By: #### L 500.2500, L100.0100 ####[facility] [address] [place], [address] ECRCL 14.58 ml/min Low 50-250 [facility] Comment on above: Performed By: #### L 500.2500, L100.0100 ####[facility] [address] [place], [address] GAP 12 Normal 5-15 [facility] Comment on above: Performed By: #### L 500.2500, L100.0100 ####[facility] [address] [place], [address] GFR/1.73 sq M.predicted among non-blacks MDRD (S/P/Bld) [Vol rate/Area] 15 mL/min/{1.73_m2} Low >60 [facility] Comment on above: Result Comment: mL/m in/1.73m2 CKD-EPI Creatinine Equation (2020) Performed By: #### L 500.2500, L100.0100 ####[facility] [address] [place], [address] Glucose [Mass/Vol] 130 mg/dL High 70-99 [facility] Comment on above: Performed By: #### L 500.2500, L100.0100 ####[facility] [address] [place], [address] Potassium [Moles/Vol] 4.5 mmol/L Normal 3.3-5.1 [facility] Comment on above: Performed By: #### L 500.2500, L100.0100 ####[facility] [address] [place], [address] Sodium [Moles/Vol] 139 mmol/L Normal 133-145 [facility] Comment on above: Performed By: #### L 500.2500, L100.0100 ####[facility] [address] [place], [address] Urea nitrogen [Mass/Vol] 32 mg/dL High 4-19 [facility] Comment on above: Performed By: #### L 500.2500, L100.0100 ####[facility] [address] [place], [address] Basophil percentageOrdered B y: Livan Murry on 02-09-2025 Basophils/100 WBC (Bld) 0.6 % 0-1 [facility] Bilirubin Test strip Ql (U)O rdered By: Livan Murry on 02-09-2025 Bilirubin Ql (U) Negative Negative [facility] CBC W/Diff, Automatedon Absolute Lymph 0.69 X10 3/uL Low 0.83-4.51 [facility] Comment on above: Performed By: #### L 500.2500, L100.0100 ####[facility] [address] [place], [address] Absolute Neut 6.1 X10 3/uL Normal 2.0-7.7 [facility] Comment on above: Performed By: #### L 500.2500, L100.0100 ####[facility] [address] [place], [address] Basophils/100 WBC (Bld) 0.6 % Normal 0-1 [facility] Comment on above: Performed By: #### L 500.2500, L100.0100 ####[facility] [address] [place], [address] Eosinophils/100 WBC (Bld) 0.3 % Normal 0-5 [facility] Comment on above: Performed By: #### L 500.2500, L100.0100 ####[facility] [address] [place], [address] Erythrocyte distribution width (RBC) [Ratio] 16.5 % High 11.6-14.6 [facility] Comment on above: Performed By: #### L 500.2500, L100.0100 ####[facility] [address] [place], [address] Hematocrit (Bld) [Volume fraction] 36.3 % Low 37-47 [facility] Comment on above: Performed By: #### L 500.2500, L100.0100 ####[facility] [address] [place], [address] Hemoglobin (Bld) [Mass/Vol] 11.1 g/dL Low 12.0-15.0 [facility] Comment on above: Performed By: #### L 500.2500, L100.0100 ####[facility] [address] [place], [address] IG% 1.400 High 0.0-0.9 [facility] Comment on above: Result Comment: IG% - Immature Granulocytes (promyelocytes, myelocytes andmetamyelocytes) > 1% indicates that a LEFT SHIFT is Present. Performed By: #### L 500.2500, L100.0100 ####[facility] [address] [place], [address] Lymphocytes/100 WBC (Bld) 9.6 % Low 19-41 [facility] Comment on above: Performed By: #### L 500.2500, L100.0100 ####[facility] [address] [place], [address] MCH (RBC) [Entitic mass] 30.1 pg Normal 27.0-32.0 [facility] Comment on above: Performed By: #### L 500.2500, L100.0100 ####[facility] [address] [place], [address] MCHC (RBC) [Mass/Vol] 30.6 g/dL Low 32-36 [facility] Comment on above: Performed By: #### L 500.2500, L100.0100 ####[facility] [address] [place], [address] MCV (RBC) [Entitic vol] 98.4 fL Normal 81-99 [facility] Comment on above: Performed By: #### L 500.2500, L100.0100 ####[facility] [address] [place], [address] Monocytes/100 WBC (Bld) 3.9 % Normal 0-10 [facility] Comment on above: Performed By: #### L 500.2500, L100.0100 ####[facility] [address] [place], [address] Neutrophils/100 WBC (Bld) 84.2 % High 47-70 [facility] Comment on above: Performed By: #### L 500.2500, L100.0100 ####[facility] [address] [place], [address] Nucleated RBC (Bld) [#/Vol] 0 10*3/uL Normal 0-5 [facility] Comment on above: Performed By: #### L 500.2500, L100.0100 ####[facility] [address] [place], [address] Platelet mean volume (Bld) [Entitic vol] 9.9 fL Normal 6.2-12.0 [facility] Comment on above: Performed By: #### L 500.2500, L100.0100 ####[facility] [address] [place], [address] Platelets (Bld) [#/Vol] 235 10*3/uL Normal 150-450 [facility] Comment on above: Performed By: #### L 500.2500, L100.0100 ####[facility] [address], [address] RBC (Bld) [#/Vol] 3.69 10*6/uL Low 4.2-5.4 [facility] Comment on above: Performed By: #### L 500.2500, L100.0100 ####[facility] [address] [place], [address] RDW SD 59.6 fl High 35.1-43.9 [facility] Comment on above: Performed By: #### L 500.2500, L100.0100 ####[facility] [address] [place], [address] WBC (Bld) [#/Vol] 7.2 10*3/uL Normal 4.4-11.0 [facility] Comment on above: Performed By: #### L 500.2500, L100.0100 ####[facility] [address] [place], [address] Carbon dioxide, total [Moles /volume] in Central venous bloodOrdered By: Livan Murry on 02-09-2025 CO2 [Moles/Vol] 27.7 mmol/L 21.0-32.0 [facility] Chest PA and Lateralon 02-09 Chest PA and Lateral Normal [facility] Chloride assayOrdered By: Jose Murry on 02-09-2025 Chloride [Moles/Vol] 100 mmol/L 98-108 [facility] Emergency Department Summary on 02-09-2025 Emergency Department Summary Normal [facility] Eosinophil percentageOrdered By: Livan Murry on 02-09-2025 Eosinophils/100 WBC (Bld) 0.3 % 0-5 [facility] Erythrocyte distribution wid th ratioOrdered By: Livan Murry on 02-09-2025 Erythrocyte distribution width (RBC) [Ratio] 16.5 % High 11.6-14.6 [facility] Erythrocyte distribution wid th standard deviationOrdered By: Livan Murry on 02-09-2025 Erythrocyte distribution width (RBC) [Ratio] 59.6 fl High 35.1-43.9 [facility] Glomerular filtration rate ( GFR) estimation/1.73 sq m using serum, plasma, or whole bOrdered By: Livan Murry on 02-09-2025 GFR/1.73 sq M.predicted among non-blacks MDRD (S/P/Bld) [Vol rate/Area] 15 mL/min/{1.73_m2} Low >60 [facility] Comment on above: mL/min/1.73m2 CKD-EP I Creatinine Equation (2020) Hematocrit Auto (Bld) [Volum e fraction]Ordered By: Livan Murry on 02-09-2025 Hematocrit (Bld) [Volume fraction] 36.3 % Low 37-47 [facility] Hemoglobin measurementOrdere d By: Livan Murry on 02-09-2025 Hemoglobin (Bld) [Mass/Vol] 11.1 g/dL Low 12.0-15.0 [facility] Immature granulocytes/100 WB C Auto (Bld)Ordered By: Livan Murry on 02-09-2025 Immature granulocytes/100 WBC (Bld) 1.400 % High 0.0-0.9 [facility] Comment on above: IG% - Immature Granu locytes (promyelocytes, myelocytes and metamyelocytes) > 1% indicates that a LEFT SHIFT is Present. Ketones Test strip Ql (U)Ord ered By: Livan Murry on 02-09-2025 Ketones Ql (U) Negative Negative [facility] L501.4021on 02-09-2025 Trop T High Sen 47 ng/L High <=14 [facility] Comment on above: Performed By: #### L 501.4021 ####[facility] [address] [place], [address] MCV (mean corpuscular volume ) determinationOrdered By: Livan Murry on 02-09-2025 MCV (RBC) [Entitic vol] 98.4 fL 81-99 [facility] Mean corpuscular hemoglobin (MCH) determinationOrdered By: Livan Murry on 02-09-2025 MCH (RBC) [Entitic mass] 30.1 pg 27.0-32.0 [facility] Mean corpuscular hemoglobin concentration (MCHC) determinationOrdered By: Livan Murry on 02-09-2025 MCHC (RBC) [Mass/Vol] 30.6 g/dL Low 32-36 [facility] Mean platelet volume determi nationOrdered By: Livan Murry on 02-09-2025 Platelet mean volume (Bld) [Entitic vol] 9.9 fL 6.2-12.0 [facility] Microscopic analysis of urin e for red blood cells (RBC)Ordered By: Livan Murry on 02-09-2025 Microscopic analysis of urine for red blood cells (RBC) 5-10 SEEN /hpf 0-5 [facility] Monocyte percentageOrdered B y: Livan Murry on 02-09-2025 Monocytes/100 WBC (Bld) 3.9 % 0-10 [facility] Mucus LM Ql (Urine sed)Order ed By: Livan Murry on 02-09-2025 Mucus Ql (Urine sed) 0 SEEN /hpf [facility] Neutrophil percentageOrdered By: Livan Murry on 02-09-2025 Neutrophils/100 WBC (Bld) 84.2 % High 47-70 [facility] Nitrite Test strip Ql (U)Ord ered By: Livan Murry on 02-09-2025 Nitrite Ql (U) Negative Negative [facility] Nucleated red blood cell per centageOrdered By: Livan Murry on 02-09-2025 Nucleated RBC/100 WBC (Bld) [Ratio] 0 % 0-5 [facility] Platelet countOrdered By: Jose Murry on 02-09-2025 Platelets (Bld) [#/Vol] 235 10*3/uL 150-450 [facility] Potassium measurement (mass/ volume)Ordered By: Livan Murry on 02-09-2025 Potassium (Unsp spec) [Mass/Vol] 4.5 mmol/L 3.3-5.1 [facility] Protein Test strip Ql (U)Ord ered By: Livan Murry on 02-09-2025 Protein Ql (U) 100 mg/dl High Negative [facility] RBC Auto (Bld) [#/Vol]Ordere d By: Livan Murry on 02-09-2025 RBC (Bld) [#/Vol] 3.69 10*6/uL Low 4.2-5.4 [facility] Serum creatinine measurement (mass/volume)Ordered By: Livan Murry on 02-09-2025 Creatinine [Mass/Vol] 3.19 mg/dL High 0.70-1.20 [facility] Serum glucose measurement (m ass/volume)Ordered By: Livan Murry on 02-09-2025 Glucose [Mass/Vol] 130 mg/dL High 70-99 [facility] Serum or plasma calcium rena urement (mass/volume)Ordered By: Livan Murry on 02-09-2025 Calcium [Mass/Vol] 9.3 mg/dL 7.6-11.0 [facility] Serum or plasma urea nitroge n measurement (mass/volume)Ordered By: Livan Murry on 02-09-2025 Urea nitrogen [Mass/Vol] 32 mg/dL High 4-19 [facility] Shoulder min 2 Viewson 02-09 Shoulder min 2 Views Normal [facility] Sodium levelOrdered By: Livan Murry on 02-09-2025 Sodium [Moles/Vol] 139 mmol/L 133-145 [facility] Squamous epithelial cells de tection in urine sediment by light microscopyOrdered By: Livan Murry on 02-09-2025 Epithelial cells.squamous LM Ql (Urine sed) 0-5 SEEN /hpf 5-10 [facility] Troponin T HS 2 HRon 025 Trop T High Sen 42 ng/L High <=14 [facility] Comment on above: Performed By: #### L 499.0042 ####[facility] [address] [place], [place], [id number] Troponin T HS 4 HRon 025 Trop T High Sen Normal <=14 [facility] Comment on above: Result Comment: Canc elled via OM: Order cancelled - Patient discharged Performed By: #### L 499.0043 ####[facility] [address] [place], [place], [id number] Troponin T.cardiac [Mass/vol ume] in Serum or Plasma by High sensitivity methodOrdered By: Livan Murry on 02-09-2025 Troponin T.cardiac High sensitivity method [Mass/Vol] 42 ng/L High <14 [facility] Troponin T.cardiac High sensitivity method [Mass/Vol] 47 ng/L High <14 [facility] Comment on above: Delta: 52 on 5-1026 Urinalysis, Completeon 02-09 BACTERIA RARE Normal None Seen [facility] Comment on above: Order Comment: CLEAN CATCH Performed By: #### L 400.0001 ####[facility] [address] [place], [address] EPI,SQUAMOUS 0-5 SEEN Normal 5-10 [facility] Comment on above: Order Comment: CLEAN CATCH Performed By: #### L 400.0001 ####[facility] [address] [place], [address] RBC 5-10 SEEN Normal 0-5 [facility] Comment on above: Order Comment: CLEAN CATCH Performed By: #### L 400.0001 ####[facility] [address] [place], [address] Mucus Ql (Urine sed) 0 SEEN Normal [facility] Comment on above: Order Comment: CLEAN CATCH Performed By: #### L 400.0001 ####[facility] [address] [place], [address] WBC 0 SEEN Normal 0-5 [facility] Comment on above: Order Comment: CLEAN CATCH Performed By: #### L 400.0001 ####[facility] [address] [place], [address] Urine clarityOrdered By: Marlene Murry on 02-09-2025 Clarity (U) Sl. Cloudy Clear [facility] Urine color determinationOrd ered By: Livan Murry on 02-09-2025 Color (U) Yellow Yellow [facility] Urine glucose detectionOrder ed By: Livan Murry on 02-09-2025 Glucose Ql (U) Normal mg/dl Normal [facility] Urine leukocyte esterase det ection by dipstickOrdered By: Livan Murry on 02-09-2025 Leukocyte esterase Test strip Ql (U) Negative Negative [facility] Urine pHOrdered By: Livan geronimo on 02-09-2025 pH (U) 6.5 [pH] 5.0 - 8.0 [facility] Urine sediment bacteria coun t by microscopy (number/high power field)Ordered By: Livan Murry on 02-09-2025 Bacteria LM.HPF (Urine sed) [#/Area] RARE /hpf None Seen [facility] Urine specific gravity measu rementOrdered By: Livan Murry on 02-09-2025 Specific gravity (U) [Rel density] 1.010 1.002-1.030 [facility] Urine urobilinogen measureme ntOrdered By: Livan Murry on 02-09-2025 Urobilinogen Ql (U) Normal mg/dl Normal [facility] White blood cell (WBC) count Ordered By: Livan Murry on 02-09-2025 WBC (Bld) [#/Vol] 7.2 10*3/uL 4.4-11.0 [facility] White blood cell countOrdere d By: Livan Murry on 02-09-2025 White blood cell count 0 SEEN /hpf 0-5 [facility] Cardiology Visit Reporton Cardiology Visit Report Normal [facility] Operative Reporton Operative Report Normal [facility] 11-29-2024 CNPN Telephone (INTMWS) SNEHA CARDENAS ([id number]) 1955 F Date Time Provider Department 11/29/24 MAGALI NIEVES INTWS During your visit today, we recorded the following information about you: Janie Yanes LPN 11/29/2024 10:31 AM Signed Patient is wanting results from [facility], [place]. Patient has an O2 monitor and Jean-Pierre Vitale recommend patient call office back to find out results. Patient stated that she had monitor on x 1 month ago. Please review and advise further. FREDY Mauro Kathleen, LPN 11/29/2024 11:41 AM Signed No results received and no order placed for overnight oximetry from this office. Called Sunil at [facility], [place]. 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 She will send the results for review. FREDY Mcdaniels Kathleen, LPN 11/29/2024 3:07 PM Signed Results scanned to [facility]. Patient notified results within normal limits. Abimbola Lewis LPN Allergies As of Date: 11/29/2024 Noted Allergy Reaction KEFLEX (CEPHALEXIN) 10/04/2005 5 - Intolerance Comments: Tachycardia, palpitations. VANCOMYCIN 06/07/2024 4 - Hives Date Reviewed: 11/14/2024 Reviewed by: Jean-Pierre Vitale APRN.HEAD SAWYER - Fully Assessed Reason for Visit: Patient Question [1877] Cmt: O2 monitor results Prescriptions as of [...] [E78.5] 02/15/2019 (more content not included)... Normal [facility] CNPNon 11-16-2024 CNPN Telephone (PULMWS) SNEHA CARDENAS ([id number]) 1955 F Date Time Provider Department 11/16/24 [...] Date Reviewed: 11/14/2024 Reviewed by: Jean-Pierre Vitale APRN.HEAD SAWYER - Fully Assessed Reason for Visit: Results [95] Primary Visit Diagnosis:Ground glass opacity present on imaging of lung [R91.8] Other Visit Diagnoses:Lung nodules [R91.8] Former smoker [Z87.891] [facility](s[id number] Order #: [id number] FUTURE Prescriptions as of 11/16/2024 - ipratropium-albuterol [...] fibrillation (HCC (more content not included)... Normal [facility] CNOVon 11-14-2024 CNOV Office Visit (PULMWS ) SNEHA CARDENAS ([id number]) 1955 F Date Time Provider Department 11/14/24 3:00 PM JEAN-PIERRE VITALE PULMWS During your visit today, we recorded the following information about you: Pulse Respiration Blood pressure Weight 89/minute 17/minute 120/60 61.6 kg Jean-Pierre Vitale, WHITNEY.HEAD SAWYER 11/14/2024 3:48 PM Signed Pulmonary Medicine Patients [...] have a heart monitor placed. Established with [place] [facility]. She also had an updated [...] pathological fracture 08/28/2021 EARNEST (acute kidney injury) ([facility]) EARNEST (acute kidney injury) ([facility]) Anemia requiring transfusions 06/15/2023 Antibiotic-associated diarrhea 07/14/2023 Asthma Benign essential tremor Chronic obstructive pulmonary disease ([facility]) 07/25/2012 Chronic respiratory failure with hypoxia ([facility]) 11/05/2022 Coagulation defect, unspecified ([facility]) 08/25/2023 COPD (chronic obstructive pulmonary disease) ([facility]) 07/25/2012 FEV1 0.84L (32%), 10/18/2014 Coronary artery disease 08/19/2023 DDD (degenerative disc disease), cervical 08/15/2015 Empyema ([facility]) 07/09/2023 Environmental allergies Wheezes with hay or dust ESRD (end stage renal disease) ([facility]) Essential and other specified forms of tremor 11/02/2007 Benign essential -- started primidone 06/03/09, Dr. Nguyễn Essential tremor 11/02/2007 Benign essential -- started primidone 06/03/09, Dr. Nguyễn Gastrointestinal hemorrhage associated with peptic ulcer 08/02/2023 Hemodialysis catheter malfunction (HCC) 08/19/2023 History of colon polyps 2009 Tubular adenoma. Hypertension Hypoxemia 05/01/2021 Post Covid pneumonia. Irritable bowel syndrome Lung nodule Migraine headache Improved with primidone Multiple duodenal ulcers 06/30/2023 NSTEMI (non-ST elevated myocardial infarction) ([facility]) 07/20/2023 Parapneumonic effusion Pneumonia due to COVID-19 virus 05/01/2021 Pneumonia due to infectious organism 06/30/2023 Pulmonary emphysema ([facility]) 07/19/2023 Scoliosis Shock, septic ([facility]) 07/11/2023 Snoring Tobacco use disorder Quit 03/04/2015. [...] a day (more content not included)... Normal [facility] 11-14-2024 [facility] Telephone (INTMWS) SNEHA CARDENAS ([id number]) 1955 F Date Time Provider Department 11/14/24 [...] on: 11/20/2024 01:31 PM Modules accepted: Orders Rachel Woodard RN 11/20/2024 1:42 PM Signed Pt called and is notified of providers message. Pt voices understanding. Rachel Woodard RN Allergies As of Date: 11/14/2024 Noted Allergy Reaction KEFLEX (CEPHALEXIN) 10/04/2005 5 - Intolerance Comments: Tachycardia, palpitations. VANCOMYCIN 06/07/2024 4 - Hives Date Reviewed: 11/14/2024 Reviewed by: Jean-Pierre Vitale APRN.HEAD SAWYER - Fully Assessed Reason for Visit: Patient [...] 07/20/2012 Aparna (more content not included)... Normal [facility] CNOVon 11-13-2024 CNOV Office Visit (INTMWS ) SNEHA CARDENAS ([id number]) 1955 F Date Time Provider Department 11/13/24 10:00 AM JULOI DRAPER INTAllisonWS During your visit today, we recorded the following information about you: Pulse Blood pressure Weight 80/minute 120/64 62 kg Julio Draper MD 11/13/2024 10:54 AM Signed This note was created using [employer]. Subjective Sneha Cardenas is a 69 year old female here with Cash. She was in the ER 2 weeks ago for chest pain. She was not admitted, and advised follow up with the [facility]. She was seen by her charger operator 11/01/24 and Holter monitor for .paroxysmal atrial [...] No gallop (more content not included)... Normal [facility] CT CHEST WO IVCONon 11-07-19 CT CHEST WO IVCON * * *Final Report* * * DATE OF EXAM: Nov 06 2024 10:16AM [facility] 0541 - CT CHEST WO IVCON / [...] small bilateral pleural effusions with pleural thickening. Offset Plate Maker: [facility] Transcribe Date/Time: Nov 12 2024 11:24A Dictated by : MAE CRAIG MD This examination was interpreted and the report reviewed and electronically signed by: MAE CRAIG MD on Nov 12 2024 11:30AM EST [id number] Normal [facility] Cardiology Visit Reporton Cardiology Visit Report Normal [facility] 12 Lead EKGon 10-31-2024 12 Lead EKG Normal [facility] Absolute lymphocyte countOrd ered By: Dariel Combs on 10-31-2024 Lymphocytes Auto (Unsp spec) [#/Vol] 1.61 10*3/uL 0.83-4.51 [facility] Absolute neutrophil countOrd ered By: Dariel Combs on 10-31-2024 Neutrophils (Bld) [#/Vol] 7.9 10*3/uL High 2.0-7.7 [facility] Anion gap in Serum or Plasma Ordered By: Dariel Combs on 10-31-2024 Anion gap [Moles/Vol] 14 mmol/L 5-15 [facility] Automated lymphocyte count a s percentage of total leukocytesOrdered By: Dariel Combs on 10-31-2024 Lymphocytes/100 WBC Auto (Unsp spec) 14.8 % Low 19-41 [facility] BUN/creatinine ratioOrdered By: Dariel Combs on 10-31-2024 Urea nitrogen/Creatinine [Mass ratio] 7.0 mg/mg Low 10-20 [facility] Basic Metabolic Profile (BMP )on 10-31-2024 BUN/CRE 7.0 RATIO Low 10-20 [facility] Comment on above: Performed By: #### L 500.2500, L100.0100, L501.4021 ####[facility] [address] [place], [address] Calcium [Mass/Vol] 8.8 mg/dL Normal 7.6-11.0 [facility] Comment on above: Performed By: #### L 500.2500, L100.0100, L501.4021 ####[facility] [address] [place], [address] Chloride [Moles/Vol] 97 mmol/L Low 98-108 [facility] Comment on above: Performed By: #### L 500.2500, L100.0100, L501.4021 ####[facility] [address] [place], [address] CO2 [Moles/Vol] 27.3 mmol/L Normal 21.0-32.0 [facility] Comment on above: Performed By: #### L 500.2500, L100.0100, L501.4021 ####[facility] [address] [place], [address] Creatinine [Mass/Vol] 2.14 mg/dL High 0.70-1.20 [facility] Comment on above: Performed By: #### L 500.2500, L100.0100, L501.4021 ####[facility] [address] [place], [address] ECRCL 21.73 ml/min Low 50-250 [facility] Comment on above: Performed By: #### L 500.2500, L100.0100, L501.4021 ####[facility] [address] [place], [address] GAP 14 Normal 5-15 [facility] Comment on above: Performed By: #### L 500.2500, L100.0100, L501.4021 ####[facility] [address] [place], [address] GFR/1.73 sq M.predicted among non-blacks MDRD (S/P/Bld) [Vol rate/Area] 25 mL/min/{1.73_m2} Low >60 [facility] Comment on above: Result Comment: mL/m in/1.73m2 CKD-EPI Creatinine Equation (2020) Performed By: #### L 500.2500, L100.0100, L501.4021 ####[facility] [address] [place], [address] Glucose [Mass/Vol] 95 mg/dL Normal 70-99 [facility] Comment on above: Performed By: #### L 500.2500, L100.0100, L501.4021 ####[facility] [address] [place], [address] Potassium [Moles/Vol] 3.6 mmol/L Normal 3.3-5.1 [facility] Comment on above: Result Comment: Hemo lysis present, Results??could be affected.?? Performed By: #### L 500.2500, L100.0100, L501.4021 ####[facility] [address] [place], [address] Sodium [Moles/Vol] 137 mmol/L Normal 133-145 [facility] Comment on above: Performed By: #### L 500.2500, L100.0100, L501.4021 ####[facility] [address] [place], [address] Urea nitrogen [Mass/Vol] 15 mg/dL Normal 4-19 [facility] Comment on above: Performed By: #### L 500.2500, L100.0100, L501.4021 ####[facility] [address] [place], [address] Basophil percentageOrdered B y: Dariel Combs on 10-31-2024 Basophils/100 WBC (Bld) 0.6 % 0-1 [facility] CBC W/Diff, Automatedon 10-04-2024 Absolute Lymph 1.61 X10 3/uL Normal 0.83-4.51 [facility] Comment on above: Performed By: #### L 500.2500, L100.0100, L501.4021 ####[facility] [address] [place], [address] Absolute Neut 7.9 X10 3/uL High 2.0-7.7 [facility] Comment on above: Performed By: #### L 500.2500, L100.0100, L501.4021 ####[facility] [address] [place], [address] Basophils/100 WBC (Bld) 0.6 % Normal 0-1 [facility] Comment on above: Performed By: #### L 500.2500, L100.0100, L501.4021 ####[facility] [address] [place], [address] Eosinophils/100 WBC (Bld) 2.7 % Normal 0-5 [facility] Comment on above: Performed By: #### L 500.2500, L100.0100, L501.4021 ####[facility] [address] [place], [address] Erythrocyte distribution width (RBC) [Ratio] 15.6 % High 11.6-14.6 [facility] Comment on above: Performed By: #### L 500.2500, L100.0100, L501.4021 ####[facility] [address] [place], [address] Hematocrit (Bld) [Volume fraction] 38.2 % Normal 37-47 [facility] Comment on above: Performed By: #### L 500.2500, L100.0100, L501.4021 ####[facility] [address] [place], [address] Hemoglobin (Bld) [Mass/Vol] 12.2 g/dL Normal 12.0-15.0 [facility] Comment on above: Performed By: #### L 500.2500, L100.0100, L501.4021 ####[facility] [address] [place], [address] IG% 0.500 Normal 0.0-0.9 [facility] Comment on above: Result Comment: IG% - Immature Granulocytes (promyelocytes, myelocytes andmetamyelocytes) > 1% indicates that a LEFT SHIFT is Present. Performed By: #### L 500.2500, L100.0100, L501.4021 ####[facility] [address] [place], [address] Lymphocytes/100 WBC (Bld) 14.8 % Low 19-41 [facility] Comment on above: Performed By: #### L 500.2500, L100.0100, L501.4021 ####[facility] [address] [place], [address] MCH (RBC) [Entitic mass] 30.0 pg Normal 27.0-32.0 [facility] Comment on above: Performed By: #### L 500.2500, L100.0100, L501.4021 ####[facility] [address] [place], [address] MCHC (RBC) [Mass/Vol] 31.9 g/dL Low 32-36 [facility] Comment on above: Performed By: #### L 500.2500, L100.0100, L501.4021 ####[facility] [address] [place], [address] MCV (RBC) [Entitic vol] 93.9 fL Normal 81-99 [facility] Comment on above: Performed By: #### L 500.2500, L100.0100, L501.4021 ####[facility] [address] [place], [address] Monocytes/100 WBC (Bld) 8.9 % Normal 0-10 [facility] Comment on above: Performed By: #### L 500.2500, L100.0100, L501.4021 ####[facility] [address] [place], [address] Neutrophils/100 WBC (Bld) 72.5 % High 47-70 [facility] Comment on above: Performed By: #### L 500.2500, L100.0100, L501.4021 ####[facility] [address] [place], [address] Nucleated RBC (Bld) [#/Vol] 0 10*3/uL Normal 0-5 [facility] Comment on above: Performed By: #### L 500.2500, L100.0100, L501.4021 ####[facility] [address] [place], [address] Platelet mean volume (Bld) [Entitic vol] 9.3 fL Normal 6.2-12.0 [facility] Comment on above: Performed By: #### L 500.2500, L100.0100, L501.4021 ####[facility] [address] [place], [address] Platelets (Bld) [#/Vol] 339 10*3/uL Normal 150-450 [facility] Comment on above: Performed By: #### L 500.2500, L100.0100, L501.4021 ####[facility] [address] [place], [address] RBC (Bld) [#/Vol] 4.07 10*6/uL Low 4.2-5.4 [facility] Comment on above: Performed By: #### L 500.2500, L100.0100, L501.4021 ####[facility] [address] [place], [address] RDW SD 53.1 fl High 35.1-43.9 [facility] Comment on above: Performed By: #### L 500.2500, L100.0100, L501.4021 ####[facility] [address] [place], [address] WBC (Bld) [#/Vol] 10.9 10*3/uL Normal 4.4-11.0 [facility] Comment on above: Performed By: #### L 500.2500, L100.0100, L501.4021 ####[facility] [address] [place], [address] Carbon dioxide, total [Moles /volume] in Central venous bloodOrdered By: Dariel Combs on 10-31-2024 CO2 [Moles/Vol] 27.3 mmol/L 21.0-32.0 [facility] Chest 1 View (Portable)on Chest 1 View (Portable) Normal [facility] Chloride assayOrdered By: Angel Combs on 10-31-2024 Chloride [Moles/Vol] 97 mmol/L Low 98-108 [facility] Emergency Department Summary on 10-31-2024 Emergency Department Summary Normal [facility] Eosinophil percentageOrdered By: Dariel Combs on 10-31-2024 Eosinophils/100 WBC (Bld) 2.7 % 0-5 [facility] Erythrocyte distribution wid th ratioOrdered By: Dariel Combs on 10-31-2024 Erythrocyte distribution width (RBC) [Ratio] 15.6 % High 11.6-14.6 [facility] Erythrocyte distribution wid th standard deviationOrdered By: Dariel Combs on 10-31-2024 Erythrocyte distribution width (RBC) [Ratio] 53.1 fl High 35.1-43.9 [facility] Glomerular filtration rate ( GFR) estimation/1.73 sq m using serum, plasma, or whole bOrdered By: Dariel Combs on 10-31-2024 GFR/1.73 sq M.predicted among non-blacks MDRD (S/P/Bld) [Vol rate/Area] 25 mL/min/{1.73_m2} Low >60 [facility] Comment on above: mL/min/1.73m2 CKD-EP I Creatinine Equation (2020) Hematocrit Auto (Bld) [Volum e fraction]Ordered By: Dariel Combs on 10-31-2024 Hematocrit (Bld) [Volume fraction] 38.2 % 37-47 [facility] Hemoglobin measurementOrdere d By: Dariel Combs on 10-31-2024 Hemoglobin (Bld) [Mass/Vol] 12.2 g/dL 12.0-15.0 [facility] Immature granulocytes/100 WB C Auto (Bld)Ordered By: Dariel Combs on 10-31-2024 Immature granulocytes/100 WBC (Bld) 0.500 % 0.0-0.9 [facility] Comment on above: IG% - Immature Granu locytes (promyelocytes, myelocytes and metamyelocytes) > 1% indicates that a LEFT SHIFT is Present. L499.0042on 10-31-2024 Trop T High Sen 50 ng/L High <=14 [facility] Comment on above: Performed By: #### L 499.0042 ####[facility] [address] [place], [address] L499.0043on 10-31-2024 Trop T High Sen Normal <=14 [facility] Comment on above: Result Comment: Yonathan suazo via OM: Ordered Performed By: #### L 499.0043 ####[facility] [address] [place], [address] L501.4021on 10-31-2024 Trop T High Sen 52 ng/L High <=14 [facility] Comment on above: Performed By: #### L 500.2500, L100.0100, L501.4021 ####[facility] [address] [place], [place], [id number] MCV (mean corpuscular volume ) determinationOrdered By: Dariel Combs on 10-31-2024 MCV (RBC) [Entitic vol] 93.9 fL 81-99 [facility] Mean corpuscular hemoglobin (MCH) determinationOrdered By: Dariel Combs on 10-31-2024 MCH (RBC) [Entitic mass] 30.0 pg 27.0-32.0 [facility] Mean corpuscular hemoglobin concentration (MCHC) determinationOrdered By: Dariel Combs on 10-31-2024 MCHC (RBC) [Mass/Vol] 31.9 g/dL Low 32-36 [facility] Mean platelet volume determi nationOrdered By: Dariel Combs on 10-31-2024 Platelet mean volume (Bld) [Entitic vol] 9.3 fL 6.2-12.0 [facility] Monocyte percentageOrdered B y: Dariel Combs on 10-31-2024 Monocytes/100 WBC (Bld) 8.9 % 0-10 [facility] Neutrophil percentageOrdered By: Dariel Combs on 10-31-2024 Neutrophils/100 WBC (Bld) 72.5 % High 47-70 [facility] Nucleated red blood cell per centageOrdered By: Dariel Combs on 10-31-2024 Nucleated RBC/100 WBC (Bld) [Ratio] 0 % 0-5 [facility] Platelet countOrdered By: Angel Combs on 10-31-2024 Platelets (Bld) [#/Vol] 339 10*3/uL 150-450 [facility] Potassium measurement (mass/ volume)Ordered By: Dariel Combs on 10-31-2024 Potassium (Unsp spec) [Mass/Vol] 3.6 mmol/L 3.3-5.1 [facility] Comment on above: Hemolysis present, R esults could be affected. RBC Auto (Bld) [#/Vol]Ordere d By: Dariel Combs on 10-31-2024 RBC (Bld) [#/Vol] 4.07 10*6/uL Low 4.2-5.4 [facility] Serum creatinine measurement (mass/volume)Ordered By: Dariel Combs on 10-31-2024 Creatinine [Mass/Vol] 2.14 mg/dL High 0.70-1.20 [facility] Serum glucose measurement (m ass/volume)Ordered By: Dariel Combs on 10-31-2024 Glucose [Mass/Vol] 95 mg/dL 70-99 [facility] Serum or plasma calcium rena urement (mass/volume)Ordered By: Dariel Combs on 10-31-2024 Calcium [Mass/Vol] 8.8 mg/dL 7.6-11.0 [facility] Serum or plasma urea nitroge n measurement (mass/volume)Ordered By: Dariel Combs on 10-31-2024 Urea nitrogen [Mass/Vol] 15 mg/dL 4-19 [facility] Sodium levelOrdered By: Dariel Combs on 10-31-2024 Sodium [Moles/Vol] 137 mmol/L 133-145 [facility] Troponin T.cardiac [Mass/vol ume] in Serum or Plasma by High sensitivity methodOrdered By: Dariel Combs on 10-31-2024 Troponin T.cardiac High sensitivity method [Mass/Vol] 50 ng/L High <14 [facility] Troponin T.cardiac High sensitivity method [Mass/Vol] 52 ng/L High <14 [facility] White blood cell (WBC) count Ordered By: Dariel Combs on 10-31-2024 WBC (Bld) [#/Vol] 10.9 10*3/uL 4.4-11.0 [facility] CNPNon 10-26-2024 CNPN Telephone (INTMWS) SNEHA CARDENAS ([id number]) 1955 F Date Time Provider Department 10/26/24 [...] symptoms. Denies any chest pain. 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 Normal [facility] CNOVon 10-08-2024 CNOV Office Visit (INTMWS ) SNEHA CARDENAS ([id number]) 1955 F Date Time Provider Department 10/08/24 6:00 PM JULIO DRAPER INTMWS During your visit today, we recorded the following information about you: Pulse Blood pressure Weight 84/minute 118/70 59.5 kg Julio Draper MD 10/08/2024 7:23 PM Signed This note was created using NoteWriter. Subjective Patient presents with: Breast Problem The patient consented to the use of ambient AI software for draft documentation of the visit consistent with [facility]?s Notice of Privacy Practices. Sneha is [...] as neede (more content not included)... Normal [facility] Yudith 10-08-2024 [facility] Telephone (INTMWS) CONORSNEHA Mendoza ([id number]) 1955 F Date Time Provider Department 10/08/24 JULIO DRAPER During your visit today, we [...] Date Reviewed: 09/04/2024 Reviewed by: Jean-Pierre Vitale APRN.HEAD SAWYER - Fully Assessed Reason for Visit: Breathing [...] infectious organism (more content not included)... Normal [facility] XR CHEST 2V FRONTAL/LATon XR CHEST 2V [...] linear atelectasis at the right lung base Offset Plate Maker: JING Transcribe Date/Time: Oct 09 2024 1:47P Dictated by : LU JAMESON MD This examination was interpreted and the report reviewed and electronically signed by: LU JAMESON MD on Oct 09 2024 1:57PM EST [id number] [facility] Telephone (INTMWS) SNEHA CARDENAS ([id number]) 1955 F Date Time Provider Department 09/26/24 JULIO DRAPER INTWS During your visit today, we recorded the following information about you: Le Aponte RN 09/26/2024 3:27 PM Signed Nurse Nelosn with [facility] calling and states patient will be seen one time next week and then will be discharged from services. No call back needed. Le Aponte RN Allergies As of Date: 09/26/2024 Noted Allergy Reaction KEFLEX (CEPHALEXIN) 10/04/2005 5 - Intolerance Comments: Tachycardia, palpitations. VANCOMYCIN 06/07/2024 4 - Hives Date Reviewed: 09/04/2024 Reviewed by: Jean-Pierre Vitale APRN.HEAD SAWYER - Fully Assessed Reason for Visit: Home [...] T36.95XA]07/14/2023 04/12/2024 (more content not included)... [facility] Tele[facility] (INTMWS) SNEHA CARDENAS ([id number]) 1955 F Date Time Provider Department 09/24/24 JULIO DRAPER INTWS During your visit today, we recorded the following information about you: Genna Lowry RN 09/24/2024 8:29 AM Signed Michele from [facility] calls and reports that they received referral for patient. Michele reports that they are unable to see [...] Date Reviewed: 09/04/2024 Reviewed by: Jean-Pierre Vitale APRN.CNP - Fully Assessed Reason for Visit: Referral [...] *11/05/2022 Duoden (more content not included)... Normal [facility] CBC panel Auto (Bld)on 09-20 Erythrocyte distribution width (RBC) [Ratio] 16.6 % High 11.5-15.0 [facility] Comment on above: Order Comment: Speci men Type: BLOOD SPECIMENOrdering Facility: [facility] Address: [address] [place] [address] Performed By: #### 5 8410-2, 4537-7 ####[facility] [id number] [place] [address] [place] Hematocrit (Bld) [Volume fraction] 31.4 % Low 36.0-46.0 [facility] Comment on above: Order Comment: Speci men Type: BLOOD SPECIMENOrdering Facility: [facility] Address: [address] [place] [address] Performed By: #### 5 8410-2, 4537-7 ####[facility] LABIA [id number] [place] [address] [place] Hemoglobin (Bld) [Mass/Vol] 9.5 g/dL Low 11.5-15.5 [facility] Comment on above: Order Comment: Speci men Type: BLOOD SPECIMENOrdering Facility: [facility] Address: [address] [place] [address] Performed By: #### 5 8410-2, 4536-7 ####[facility] LABCLIA [id number] [place] [address] [place] MCH (RBC) [Entitic mass] 30.9 pg Normal 26.0-34.0 [facility] Comment on above: Order Comment: Speci men Type: BLOOD SPECIMENOrdering Facility: [facility] Address: [address] [place] [address] Performed By: #### 5 8410-2, 7 ####[facility] LABIA [id number] [place] [address] [place] MCHC (RBC) [Mass/Vol] 30.3 g/dL Low 30.5-36.0 [facility] Comment on above: Order Comment: Speci men Type: BLOOD SPECIMENOrdering Facility: [facility] Address: [address] [place] [address] Performed By: #### 5 8410-2, 7 ####[facility] LABIA [id number] [place] [address] [place] MCV (RBC) [Entitic vol] 102.3 fL High 80.0-100.0 [facility] Comment on above: Order Comment: Speci men Type: BLOOD SPECIMENOrdering Facility: [facility] Address: [address] [place] [address] Performed By: #### 5 8410-2, 7 ####[facility] LABIA [id number] [place] [address] [place] Nucleated RBC (Bld) [#/Vol] 10*3/uL Normal <0.01 [facility] Comment on above: Order Comment: Speci men Type: BLOOD SPECIMENOrdering Facility: [facility] Address: [address] [place] [address] Performed By: #### 5 8410-2, 7 ####[facility] LABIA [id number] [place] [id number] [place] Platelet mean volume (Bld) [Entitic vol] 9.1 fL Normal 9.0-12.7 [facility] Comment on above: Order Comment: Speci men Type: BLOOD SPECIMENOrdering Facility: [facility] Address: [address] [place] [address] Performed By: #### 5 8410-2, 4537-7 ####[facility] LABIA [id number] [place] [address] [place] Platelets (Bld) [#/Vol] 420 10*3/uL High 150-400 [facility] Comment on above: Order Comment: Speci men Type: BLOOD SPECIMENOrdering Facility: [facility] Address: [address] [place] [address] Performed By: #### 5 8410-2, 4537-7 ####[facility] LABIA [id number] [place] [address] [place] RBC (Bld) [#/Vol] 3.07 10*6/uL Low 3.90-5.20 [facility] Comment on above: Order Comment: Speci men Type: BLOOD SPECIMENOrdering Facility: [facility] Address: [address] [place] [address] Performed By: #### 5 8410-2, 4537-7 ####[facility] LABIA [id number] [place] [id number] [place] WBC (Bld) [#/Vol] 9.93 10*3/uL Normal 3.70-11.00 [facility] Comment on above: Order Comment: Speci men Type: BLOOD SPECIMENOrdering Facility: [facility] Address: [address] [place] [address] Performed By: #### 5 8410-2, 4537-7 ####[facility] LABIA [id number] [place] [id number] [facility] Yudith 09-20-2024 TRANG Telephone (INTMWS) SNEHA CARDENAS ([id number]) 1955 F Date Time Provider Department 09/20/24 JULIO DRAPER INTAllisonWS During your visit today, we recorded the following information about you: Ericka Christopher LPN 09/20/2024 12:07 PM Signed Pt brought [...] will call back with this info. Carol Sosa RN 09/25/2024 12:11 PM Signed Patient calls back and reports she doesn't have a fax number so she will have to pick forms up in medical records so that she can mail forms overnight so they receive them by October 02, 2024. Please call patient at [phone] when patient can pick forms/papers up. JAMI Lee Janice, LPN 09/25/2024 12:40 PM Signed These will be in medical records today by 1 pm. Pt notified. Did also copy form completed for pts records here. Allergies As of Date: 09/20/2024 Noted Allergy Reaction KEFLEX (CEPHALEXIN) 10/04/2005 5 - Intolerance Comments: Tachycardia, palpitations. VANCOMYCIN 06/07/2024 4 - Hives Date Reviewed: 09/04/2024 Reviewed by: Click, Jean-Pierre M, RESORT MANAGER.HEAD SAWYER - Fully Assessed Reason for Visit: Forms [263] Cmt: Disability forms from [employer] Prescriptions as [...] [I10] 06/03/20 (more content not included)... Normal [facility] D dimer FEU PPP-mCncon 09-20 Fibrin D-dimer FEU (PPP) [Mass/Vol] 500 ng/mL FEU High <500 [facility] Comment on above: Order Comment: Speci men Type: BLOOD SPECIMENOrdering Facility: [facility] Address: [address] [place] [address] Result Comment: Ebony en Plasma Aliquot Performed By: #### 4 8065-7 ####[facility] LABIA [id number] [address] [place] ESR Westergren method (Bld) [Velocity]on 09-20-2024 ESR (Bld) [Velocity] 63 mm/h High 0-20 [facility] Comment on above: Order Comment: Speci men Type: BLOOD SPECIMENOrdering Facility: [facility] Address: [address] [place] [address] Performed By: #### 5 8410-2, 4537-7 ####[facility] [id number] [address] [place] Fibrin D-dimer FEU (PPP) [Ma ss/Vol]on 09-20-2024 D DIMER AGE-RELATED CUTOFF 680 ng/mL FEU Normal [facility] Comment on above: Order Comment: Speci men Type: BLOOD SPECIMENOrdering Facility: [facility] Address: [address] [place] [address] Performed By: #### 4 8065-7 ####[facility] [id number] [address] [place] MR/BMS.BVSon 09-20-2024 MR/BMS.BVS Normal [facility] CNOVon 09-19-2024 CNOV Office Visit (INTMWS ) SNEHA CARDENAS ([id number]) 1955 F Date Time Provider Department 09/19/24 4:40 PM JULIO DRAPER INTMWS During your visit today, we recorded the following information about you: Temperature Pulse Blood pressure Weight 97.6 degrees 100/minute 110/58 59 kg Julio Draper MD 09/20/2024 7:03 AM Signed This note was created using True Office. Subjective Patient presents with: ER F/U Sneha [...] kg/m? Phy (more content not included)... Normal [facility] Emergency Department Summary on 09-17-2024 Emergency Department Summary Normal [facility] Shoulder min 2 Viewson 09-17 Shoulder min 2 Views Normal [facility] CNPNon 09-07-2024 [facility] Telephone (INTMWS) SNEHA CARDENAS ([id number]) 1955 F Date Time Provider Department 09/07/24 JULIO DRAPER INTWS During your visit today, we recorded the following information about you: Carol Sosa RN 09/07/2024 2:50 PM Signed Richi PT with [facility] calls to let provider know that [...] Date Reviewed: 09/04/2024 Reviewed by: Jean-Pierre Vitale APRN.HEAD SAWYER - Fully Assessed Reason for Visit: Orders [...] colon po (more content not included)... [facility]NY[facility] SNEHA CARDENAS ([id number]) 1955 F Date Time Provider Department 09/07/24 JULIO DRAPER During your visit today, we recorded the following information about you: Lorna Angel, RN 09/07/2024 2:48 PM Signed Nelson with [facility] is calling to information pcp that they have re certified patient with senior care for once weekly visits for the next 3 weeks and then they will re-evaluate. Allergies As of Date: 09/07/2024 Noted Allergy Reaction KEFLEX (CEPHALEXIN) 10/04/2005 5 - Intolerance Comments: Tachycardia, palpitations. VANCOMYCIN 06/07/2024 4 - Hives Date Reviewed: 09/04/2024 Reviewed by: Jean-Pierre Vitale APRN.[facility] - Fully Assessed Reason for Visit: FYI-No [...] [J43.9] 07/19/202304/03 (more content not included)... Normal [facility] Operative Reporton Operative Report Normal [facility] CNOVon 09-04-2024 CNOV Office Visit (PULMWS ) SNEHA CARDENAS ([id number]) 1955 F Date Time Provider Department 09/04/24 1:00 PM JEAN-PIERRE VITALE PULMWS During your visit today, we recorded the following information about you: Pulse Blood pressure Weight 96/minute 123/67 58.1 kg Jean-Pierre Vitale, RESORT MANAGER.HEAD SAWYER 09/04/2024 4:07 PM Signed Pulmonary Medicine Patients [...] pathological fracture 08/28/2021 EARNEST (acute kidney injury) ([facility]) EARNEST (acute kidney injury) ([facility]) Anemia requiring transfusions 06/15/2023 Antibiotic-associated diarrhea 07/14/2023 Asthma Benign essential tremor Chronic obstructive pulmonary disease ([facility]) 07/25/2012 Chronic respiratory failure with hypoxia ([facility]) 11/05/2022 Coagulation defect, unspecified ([facility]) 08/25/2023 COPD (chronic obstructive pulmonary disease) ([facility]) 07/25/2012 FEV1 0.84L (32%), 10/18/2014 Coronary artery disease 08/19/2023 DDD (degenerative disc disease), cervical 08/15/2015 Empyema ([facility]) 07/09/2023 Environmental allergies Wheezes with hay or dust ESRD (end stage renal disease) ([facility]) Essential and other specified forms of tremor 11/02/2007 Benign essential -- started primidone 06/03/09, Dr. Nguyễn Essential tremor 11/02/2007 Benign essential -- started primidone 06/03/09, Dr. Nguyễn Gastrointestinal hemorrhage associated with peptic ulcer 08/02/2023 Hemodialysis catheter malfunction ([facility]) 08/19/2023 History of colon polyps 2010 Tubular adenoma. Hypertension Hypoxemia 05/01/2021 Post Covid pneumonia. Irritable bowel syndrome Lung nodule Migraine headache Improved with primidone Multiple duodenal ulcers 06/30/2023 NSTEMI (non-ST elevated myocardial infarction) ([facility]) 07/20/2023 Parapneumonic effusion Pneumonia due to COVID-19 virus 05/01/2021 Pneumonia due to infectious organism 06/30/2023 Pulmonary emphysema ([facility]) 07/19/2023 Scoliosis Shock, septic ([facility]) 07/11/2023 Snoring Tobacco use disorder Quit 03/04/2015. [...] known as: (more content not included)... Normal [facility] BD DXA - AXIAL SKELETONon BD DXA - AXIAL SKELETON * * *Final Repor t* * * DATE OF EXAM: Aug 30 2024 10:24AM [facility] 08 - DXA - AXIAL SKELETON / PROCEDURE REASON: Age-related osteoporosis without current pathological fracture * * * * Physician Interpretation * * * * EXAMINATION: DXA BONE DENSITOMETRY BD DXA - AXIAL SKELETON PATIENT DEMOGRAPHICS: Age: 69 years, Gender: Female SCANNER INFORMATION: DXA Model: blinkbox - [employer]inel[employer] C 90204 Date Scanned: 08/30/2024 10:24 AM CLINICAL HISTORY: [...] FOR MORE INFORMATION ABOUT DIAGNOSIS AND TREATMENT: [facility] Osteoporosis and Metabolic Bone Disease:? www.ccf.org/arthritis/ osteo National Osteoporosis Foundation:? www.nof.org International Society of Clinical Densitometry www.iscd.org Offset Plate Maker: JING Transcribe Date/Time: Sep 03 2024 10:24A Dictated by : IBRAHIMA ANGELES MD This examination was interpreted and the report reviewed and electronically signed by: IBRAHIMA ANGELES MD on Sep 03 2024 10:28AM EST [id number] -3.5 Normal [facility] CNOVon 08-14-2024 CNOV Office Visit (INTMWS ) CONOR,SNEHA Reji ([id number]) 1955 F Date Time Provider Department 08/14/24 11:00 AM JULIO DRAPER INTMWS During your visit today, we recorded the following information about you: Temperature Pulse Blood pressure Weight 97.3 degrees 104/minute 134/60 61.7 kg Julio Draper MD 08/14/2024 12:52 PM Signed This note was created using [employer] Group[employer]. Subjective Patient presents with: Hospital F/U Sneha Hendersonkler is a 69 year old female was [...] tablet by mouth two times a day. ilkzyszuar-zrbnfnfu-ce rmoterol (BREZTRI) 160-9-4.8 mcg/actuation HFA aerosol inhaler [...] Pharynx: Oropharynx (more content not included)... Normal [facility] Yudith 08-14-2024 [facility] Telephone (INTMWS) CONORSNEHA MENON ([id number]) 1955 F Date Time Provider Department 08/14/24 JULIO DRAPER During your visit today, we recorded the following information about you: Carol Sosa RN 08/14/2024 9:56 AM Signed Any with [facility] call to request a verbal order to move patient's PT visit this week to the end of the week per patient request instead of creating a missed visit. Call back number to Any is [phone]. JAMI Lee Naz M, APRN.HEAD SAWYER 08/14/2024 12:12 PM Signed Peg Laureano APRN.Magali Sarmiento MA 08/14/2024 12:25 PM Signed Let detailed message on any confidential vm Magali Casey MA Allergies As [...] by mouth two times a day. - odbxzeuzlb-epfcfbga-yt rmoterol (BREZTRI) 160-9-4.8 mcg/actuation HFA aerosol inhaler [...] R65.21] 0 (more content not included)... Normal [facility] Basic Metabolic Profile (BMP )on 08-13-2024 BUN Normal 7-18 [facility] Comment on above: Result Comment: Canc elled via OM: Order cancelled - Patient discharged Performed By: #### L 500.2500 ####[facility] [address] [place], [address] BUN/CRE Normal 10-20 [facility] Comment on above: Result Comment: Canc elled via OM: Order cancelled - Patient discharged Performed By: #### L 500.2500 ####[facility] [address] [place], [address] CA,Total Normal 8.5-10.1 [facility] Comment on above: Result Comment: Canc elled via OM: Order cancelled - Patient discharged Performed By: #### L 500.2500 ####[facility] [address] [place], [address] CL Normal 98-107 [facility] Comment on above: Result Comment: Canc elled via OM: Order cancelled - Patient discharged Performed By: #### L 500.2500 ####[facility] [address] [place], [address] CO2 Normal 21.0-32.0 [facility] Comment on above: Result Comment: Canc elled via OM: Order cancelled - Patient discharged Performed By: #### L 500.2500 ####[facility] [address] [place], [address] CREAT,SERUM Normal 0.55-1.02 [facility] Comment on above: Result Comment: Canc elled via OM: Order cancelled - Patient discharged Performed By: #### L 500.2500 ####[facility] [address] [place], [address] EST GFR Normal >60 [facility] Comment on above: Result Comment: Canc elled via OM: Order cancelled - Patient discharged Performed By: #### L 500.2500 ####[facility] [address] [place], [address] EST GFR - AA Normal >60 [facility] Comment on above: Result Comment: Canc elled via OM: Order cancelled - Patient discharged Performed By: #### L 500.2500 ####[facility] [address] [place], [address] GAP Normal 5-15 [facility] Comment on above: Result Comment: Canc elled via OM: Order cancelled - Patient discharged Performed By: #### L 500.2500 ####[facility] [address] [place], [address] GLU Normal 74-106 [facility] Comment on above: Result Comment: Canc elled via OM: Order cancelled - Patient discharged Performed By: #### L 500.2500 ####[facility] [address] [place], [address] Potassium Normal 3.5-5.1 [facility] Comment on above: Result Comment: Canc elled via OM: Order cancelled - Patient discharged Performed By: #### L 500.2500 ####[facility] [address] [place], [address] Basic Metabolic Profile (BMP) Normal 136-145 [facility] Comment on above: Result Comment: Canc elled via OM: Order cancelled - Patient discharged Performed By: #### L 500.2500 ####[facility] [address] [place], [address] CBC-Complete Blood Cnt No Di ffon 08-13-2024 HCT Normal 37-47 [facility] Comment on above: Result Comment: Canc elled via OM: Order cancelled - Patient discharged Performed By: #### L 100.0500 ####[facility] [address] [place], [address] HGB Normal 12.0-15.0 [facility] Comment on above: Result Comment: Canc elled via OM: Order cancelled - Patient discharged Performed By: #### L 100.0500 ####[facility] [address] [place], [address] MCH Normal 27.0-32.0 [facility] Comment on above: Result Comment: Canc elled via OM: Order cancelled - Patient discharged Performed By: #### L 100.0500 ####[facility] [address] [place], [address] MCHC Normal 32-36 [facility] Comment on above: Result Comment: Canc elled via OM: Order cancelled - Patient discharged Performed By: #### L 100.0500 ####[facility] [address] [place], [address] MCV Normal 81-99 [facility] Comment on above: Result Comment: Canc elled via OM: Order cancelled - Patient discharged Performed By: #### L 100.0500 ####[facility] [address] [place], [address] PLT Normal 150-450 [facility] Comment on above: Result Comment: Canc elled via OM: Order cancelled - Patient discharged Performed By: #### L 100.0500 ####[facility] [address] [place], [address] RBC Normal 4.2-5.4 [facility] Comment on above: Result Comment: Canc elled via OM: Order cancelled - Patient discharged Performed By: #### L 100.0500 ####[facility] [address] [place], [address] RDW CV Normal 11.6-14.6 [facility] Comment on above: Result Comment: Canc elled via OM: Order cancelled - Patient discharged Performed By: #### L 100.0500 ####[facility] [address] [place], [address] RDW SD Normal 35.1-43.9 [facility] Comment on above: Result Comment: Canc elled via OM: Order cancelled - Patient discharged Performed By: #### L 100.0500 ####[facility] [address] [place], [address] WBC Normal 4.4-11.0 [facility] Comment on above: Result Comment: Canc elled via OM: Order cancelled - Patient discharged Performed By: #### L 100.0500 ####[facility] [address] [place], [address] Basic Metabolic Profile (BMP )on 08-11-2024 BUN Normal 7-18 [facility] Comment on above: Result Comment: Canc elled via OM: Order cancelled - Patient discharged Performed By: #### L 500.2500 ####[facility] [address] [place], [address] BUN/CRE Normal 10-20 [facility] Comment on above: Result Comment: Canc elled via OM: Order cancelled - Patient discharged Performed By: #### L 500.2500 ####[facility] [address] [place], [address] CA,Total Normal 8.5-10.1 [facility] Comment on above: Result Comment: Canc elled via OM: Order cancelled - Patient discharged Performed By: #### L 500.2500 ####[facility] [address] [place], [address] CL Normal 98-107 [facility] Comment on above: Result Comment: Canc elled via OM: Order cancelled - Patient discharged Performed By: #### L 500.2500 ####[facility] [address] [place], [address] CO2 Normal 21.0-32.0 [facility] Comment on above: Result Comment: Canc elled via OM: Order cancelled - Patient discharged Performed By: #### L 500.2500 ####[facility] [address] [place], [address] CREAT,SERUM Normal 0.55-1.02 [facility] Comment on above: Result Comment: Canc elled via OM: Order cancelled - Patient discharged Performed By: #### L 500.2500 ####[facility] [address] [place], [address] EST GFR Normal >60 [facility] Comment on above: Result Comment: Canc elled via OM: Order cancelled - Patient discharged Performed By: #### L 500.2500 ####[facility] [address] [place], [address] EST GFR - AA Normal >60 [facility] Comment on above: Result Comment: Canc elled via OM: Order cancelled - Patient discharged Performed By: #### L 500.2500 ####[facility] [address] [place], [address] GAP Normal 5-15 [facility] Comment on above: Result Comment: Canc elled via OM: Order cancelled - Patient discharged Performed By: #### L 500.2500 ####[facility] [address] [place], [address] GLU Normal 74-106 [facility] Comment on above: Result Comment: Canc elled via OM: Order cancelled - Patient discharged Performed By: #### L 500.2500 ####[facility] [address] [place], [address] Potassium Normal 3.5-5.1 [facility] Comment on above: Result Comment: Canc elled via OM: Order cancelled - Patient discharged Performed By: #### L 500.2500 ####[facility] [address] [place], [address] Basic Metabolic Profile (BMP) Normal 136-145 [facility] Comment on above: Result Comment: Canc elled via OM: Order cancelled - Patient discharged Performed By: #### L 500.2500 ####[facility] [address] [place], [address] CBC-Complete Blood Cnt No Di ffon 08-11-2024 HCT Normal 37-47 [facility] Comment on above: Result Comment: Canc elled via OM: Order cancelled - Patient discharged Performed By: #### L 100.0500 ####[facility] [address] [place], [address] HGB Normal 12.0-15.0 [facility] Comment on above: Result Comment: Canc elled via OM: Order cancelled - Patient discharged Performed By: #### L 100.0500 ####[facility] [address] [place], [address] MCH Normal 27.0-32.0 [facility] Comment on above: Result Comment: Canc elled via OM: Order cancelled - Patient discharged Performed By: #### L 100.0500 ####[facility] [address] [place], [address] MCHC Normal 32-36 [facility] Comment on above: Result Comment: Canc elled via OM: Order cancelled - Patient discharged Performed By: #### L 100.0500 ####[facility] [address] [place], [address] MCV Normal 81-99 [facility] Comment on above: Result Comment: Canc elled via OM: Order cancelled - Patient discharged Performed By: #### L 100.0500 ####[facility] [address] [place], [address] PLT Normal 150-450 [facility] Comment on above: Result Comment: Canc elled via OM: Order cancelled - Patient discharged Performed By: #### L 100.0500 ####[facility] [address] [place], [address] RBC Normal 4.2-5.4 [facility] Comment on above: Result Comment: Canc elled via OM: Order cancelled - Patient discharged Performed By: #### L 100.0500 ####[facility] [address] [place], [address] RDW CV Normal 11.6-14.6 [facility] Comment on above: Result Comment: Canc elled via OM: Order cancelled - Patient discharged Performed By: #### L 100.0500 ####[facility] [address] [place], [address] RDW SD Normal 35.1-43.9 [facility] Comment on above: Result Comment: Canc elled via OM: Order cancelled - Patient discharged Performed By: #### L 100.0500 ####[facility] [address] [place], [address] WBC Normal 4.4-11.0 [facility] Comment on above: Result Comment: Canc elled via OM: Order cancelled - Patient discharged Performed By: #### L 100.0500 ####[facility] [address] [place], [address] CBC W/Diff, Automatedon 02-0 PATH REV Reviewed Normal [facility] Comment on above: Order Comment: A MENDED [...] a LEFT SHIFT is Present. AMENDED REPORT 08/09/24 0932 IM GRAN % previously reported as: 7.300 H % Result Comment: Neut rophilic left shift.Clinical correlation necessary.Patrice Quinones M.D. 08/10/24Neutrophilic left shift.Clinical correlation necessary.Patrice Quinones M.D. 08/10/24 AMENDED REPORT 08/10/24 1343 PATH REV previously reported as: November mily Performed By: #### L 100.0100, L500.2500 ####[facility] [address] [place], [place], [address] [facility] 08-10-2024 [facility] Telephone (PULAllisonWS) SNEHA CARDENAS ([id number]) 1955 F Date Time Provider Department 08/10/24 MAGALI NIEVES During your visit today, we recorded the following information about you: Annette Gonzalez MA 08/10/2024 1:03 PM Signed Pt calling in to report that she had been in and out of [facility] for 3 weeks with RSV. Sent home [...] for Visit: Patient Update [1234] Patient Question [4267] Prescriptions as of 08/10/2024 - guaiFENesin (ROBITUSSIN) [...] by mouth two times a day. - fiewmsmhpz-pkuuorxp-ik rmoterol (BREZTRI) 160-9-4.8 mcg/actuation HFA aerosol inhaler [...] (H*07/09/2023 08/25/2023 (more content not included)... Normal [facility] Telephone (INTMWS) SNEHA CARDENAS ([id number]) 1955 F Date Time Provider Department 08/10/24 JULIO DRAPER INTMWS During your visit today, we recorded the following information about you: Annette Farr LPN 08/10/2024 11:44 AM Signed Nell with [facility] calling to let you know pt is in the hospital and will be d/c today or tomorrow. Asking for verbal orders to do resumption of care on Tuesday with pt for home health. Please advise Nell back. Okay to leave a detailed message. FREDY Eduardo Victor H, MD 08/10/2024 4:52 PM Signed Okay. Resume HHC Tuesday08/14/24. Janie Yanes LPN 08/10/2024 4:56 PM Signed Phoned and left message on secure voicemail for Nell to notify of orders to resume HHC. Janie Yanes LPN Allergies As of Date: [...] by mouth two times a day. - mjxvwmorpq-srkpnchm-fj rmoterol (BREZTRI) 160-9-4.8 mcg/actuation HFA aerosol inhaler [...] bleed [ (more content not included)... Normal [facility] Telephone (INTMWS) SNEHA CARDENAS ([id number]) 1955 F Date Time Provider Department 08/10/24 JULIO DRAPER INTMWS During your visit today, we recorded the following information about you: Le Aponte RN 08/10/2024 4:12 PM Signed Genna with [facility] Nursing calling. Will continue to see patient 1x/week for 4 more weeks. Pt would like to know if she can continue to take Mucinex;Fast Max liquid OTC medication? Please call nurse Vail back at [phone]. JAMI Oconnor Victor H, MD 08/10/2024 5:09 [...] by mouth two times a day. - tpuntlykoy-nomanoji-kg rmoterol (BREZTRI) 160-9-4.8 mcg/actuation HFA aerosol inhaler [...] History of (more content not included)... 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, [address] CA,Total 9.2 mg/dL Normal 8.5-10.1 [facility] Comment on above: Performed By: #### L 100.0100, L500.2500 ####[facility] [address] [place], [address] Chloride [Moles/Vol] 101 mmol/L Normal 98-107 [facility] Comment on above: Performed By: #### L 100.0100, L500.2500 ####[facility] [address] [place], [address] CO2 [Moles/Vol] 23.0 mmol/L Normal 21.0-32.0 [facility] Comment on above: Performed By: #### L 100.0100, L500.2500 ####[facility] [address] [place], [address] Creatinine [Mass/Vol] 4.02 mg/dL High 0.55-1.02 [facility] Comment on above: Result Comment: The validity of the calculated GFR GFRAA in patients over70 years has not been determined. Clinical correlation isessential. Performed By: #### L 100.0100, L500.2500 ####[facility] [address] [place], [address] ECRCL 12.56 ml/min Normal [facility] Comment on above: Performed By: #### L 100.0100, L500.2500 ####[facility] [address] [place], [address] EST GFR - AA 14 mL/min Low >60 [facility] Comment on above: Result Comment: Afri can Afghan GFR Calc Performed By: #### L 100.0100, L500.2500 ####[facility] [address] [place], [address] GAP 11 Normal 5-15 [facility] Comment on above: Performed By: #### L 100.0100, L500.2500 ####[facility] [address] [place], [address] GFR/1.73 sq M.predicted among non-blacks MDRD (S/P/Bld) [Vol rate/Area] 12 mL/min/{1.73_m2} Low >60 [facility] Comment on above: Result Comment: Non- GFR Calc Performed By: #### L 100.0100, L500.2500 ####[facility] [address] [place], [address] Glucose [Mass/Vol] 103 mg/dL Normal 74-106 [facility] Comment on above: Result Comment: Fast ing Glucose result from 100 to 125 mg/dLsuggests IMPAIRED HOMEOSTASIS per A.D.A. criteria. Performed By: #### L 100.0100, L500.2500 ####[facility] [address] [place], [address] Potassium [Moles/Vol] 5.0 mmol/L Normal 3.5-5.1 [facility] Comment on above: Performed By: #### L 100.0100, L500.2500 ####[facility] [address] [place], [address] Sodium [Moles/Vol] 135 mmol/L Low 136-145 [facility] Comment on above: Performed By: #### L 100.0100, L500.2500 ####[facility] [address] [place], [address] Urea nitrogen [Mass/Vol] 75 mg/dL High 7-18 [facility] Comment on above: Performed By: #### L 100.0100, L500.2500 ####[facility] [address] [place], [address] Blood band neutrophil count as percentage of total leukocytesOrdered By: Yemi Celaya on 08-09-2024 Band form neutrophils/100 WBC (Bld) 3 % 0-5 [facility] Blood band neutrophil count as percentage of total leukocytes 3 % High 0-0 [facility] Blood lymphocytes/100 leukoc ytesOrdered By: Yemi Celaya on 08-09-2024 Lymphocytes/100 WBC (Bld) 6 % Low 19-41 [facility] Blood metamyelocytes/100 maria ines kocytesOrdered By: Yemi Celaya on 08-09-2024 Metamyelocytes/100 WBC (Bld) 3 % High 0-1 [facility] Blood monocytes/100 leukocyt esOrdered By: Yemi Celaya on 08-09-2024 Monocytes/100 WBC (Bld) 4 % 0-10 [facility] Blood segmented neutrophils/ 100 leukocytesOrdered By: Yemi Celaya on 08-09-2024 Segmented neutrophils/100 WBC (Bld) 81 % High 47-70 [facility] Blood urea nitrogen (BUN)/cr eatinine ratioOrdered By: Yemi Celaya on 08-09-2024 Blood urea nitrogen (BUN)/creatinine ratio 18.7 RATIO 10-20 [facility] Calcium [Mass/Vol]Ordered By : Yemi Celaya on 08-09-2024 Serum or plasma calcium measurement (mass/volume) 9.2 mg/dL 8.5-10.1 [facility] Carbon dioxide measurementOr dered By: Yemi Celaya on 08-09-2024 CO2 [Moles/Vol] 23.0 mmol/L 21.0-32.0 [facility] Carbon dioxide measurement 23.0 mmol/L 21.0-32.0 [facility] Cells counted Molgen (Bld/Ti ss) [#]Ordered By: Yemi Celaya on 08-09-2024 Total cell count 100 MANUAL DIFF [facility] Chloride measurementOrdered By: Yemi Celaya on 08-09-2024 Chloride [Moles/Vol] 101 mmol/L 98-107 [facility] Chloride measurement 101 mmol/L 98-107 [facility] Creatinine [Mass/Vol]Ordered By: Yemi Celaya on 08-09-2024 Serum or plasma creatinine measurement (mass/volume) 4.02 mg/dL High 0.55-1.02 [facility] Erythrocyte distribution wid th (RBC) [Entitic vol]Ordered By: Yemi Celaya on 08-09-2024 Erythrocyte distribution width standard deviation 50.4 fl High 35.1-43.9 [facility] Erythrocyte distribution wid th (RBC) [Ratio]Ordered By: Yemi Celaya on 08-09-2024 Erythrocyte distribution width ratio 15.4 % High 11.6-14.6 [facility] Erythrocyte distribution wid th ratioOrdered By: Yemi Celaya on 08-09-2024 Erythrocyte distribution width (RBC) [Ratio] 15.4 % High 11.6-14.6 [facility] Erythrocyte distribution wid th standard deviationOrdered By: Yemi Celaya on 08-09-2024 Erythrocyte distribution width (RBC) [Ratio] 50.4 fl High 35.1-43.9 [facility] Erythrocyte morphology asses smentOrdered By: Yemi Celaya on 08-09-2024 RBC morphology finding Nom (Bld) NORM C+C NORMAL NORM C&C [facility] Estimated glomerular filtrat ion rate (GFR) AmericanOrdered By: Yemi Cealya on 08-09-2024 Estimated glomerular filtration rate (GFR) 14 mL/min Low >60 [facility] Estimation of creatinine magdiel aranceOrdered By: Yemi Celaya on 08-09-2024 Estimation of creatinine clearance 12.56 ml/min [facility] Glomerular filtration rate ( GFR) estimationOrdered By: Yemi Celaya on 08-09-2024 GFR/1.73 sq M.predicted among non-blacks MDRD (S/P/Bld) [Vol rate/Area] 12 mL/min/{1.73_m2} Low >60 [facility] Glomerular filtration rate (GFR) estimation 12 mL/min Low >60 [facility] Glucose measurementOrdered B y: Yemi Celaya on 08-09-2024 Glucose [Mass/Vol] 103 mg/dL 74-106 [facility] Glucose measurement 103 mg/dL 74-106 [facility] Hematocrit Auto (Bld) [Volum e fraction]Ordered By: Yemi Celaya on 08-09-2024 Hematocrit (Bld) [Volume fraction] 34.8 % Low 37-47 [facility] Automated blood hematocrit (percentage) 34.8 % Low 37-47 [facility] Hemoglobin measurementOrdere d By: Yemi Celaya on 08-09-2024 Hemoglobin (Bld) [Mass/Vol] 11.2 g/dL Low 12.0-15.0 [facility] Hemoglobin measurement 11.2 g/dL Low 12.0-15.0 [facility] Immature granulocytes/100 WB C Auto (Bld)Ordered By: Yemi Celaya on 08-09-2024 Immature granulocytes/100 WBC (Bld) CIRCUIT BOARD REPAIR TECHNICIAN [facility] Lymphocytes Auto (Unsp spec) [#/Vol]Ordered By: Yemi Celaya on 08-09-2024 Absolute lymphocyte count 0.56 X10^3/uL Low 0.83-4.51 [facility] Lymphocytes/100 WBC (Bld)Ord ered By: Yemi Celaya on 08-09-2024 Blood lymphocytes/100 leukocytes 6 % Low 19-41 [facility] MCV (RBC) [Entitic vol]Order ed By: Yemi Celaya on 08-09-2024 MCV (mean corpuscular volume) determination 96.4 fL 81-99 [facility] MCV (mean corpuscular volume ) determinationOrdered By: Yemi Celaya on 08-09-2024 MCV (RBC) [Entitic vol] 96.4 fL 81-99 [facility] Mean corpuscular hemoglobin (MCH) determinationOrdered By: Yemi Celaya on 08-09-2024 MCH (RBC) [Entitic mass] 31.0 pg 27.0-32.0 [facility] Mean corpuscular hemoglobin (MCH) determination 31.0 pg 27.0-32.0 [facility] Mean corpuscular hemoglobin concentration (MCHC) determinationOrdered By: Yemi Celaya on 08-09-2024 Mean corpuscular hemoglobin concentration (MCHC) determination 32.2 g/dL 32-36 [facility] Mean platelet volume determi nationOrdered By: Yemi Celaya on 08-09-2024 Mean platelet volume determination 9.5 fl 6.2-12.0 [facility] Monocytes/100 WBC (Bld)Order ed By: Yemi Celaya on 08-09-2024 Blood monocytes/100 leukocytes 4 % 0-10 [facility] Neutrophil percentageOrdered By: Yemi Celaya on 08-09-2024 Neutrophil percentage CIRCUIT BOARD REPAIR TECHNICIAN [facility] Nucleated red blood cell per centageOrdered By: Yemi Celaya on 08-09-2024 Nucleated red blood cell percentage 0.2 % 0-5 [facility] Pathologist review Darnell (Unsp spec) [Interp]Ordered By: Yemi Celaya on 08-09-2024 Review by pathologist Reviewed [facility] Platelet countOrdered By: Margaux Celaya on 08-09-2024 Platelets (Bld) [#/Vol] 366 10*3/uL 150-450 [facility] Platelet count 366 K/mm3 150-450 [facility] Platelet estimateOrdered By: Yemi Celaya on 08-09-2024 Platelets LM Ql (Bld) ADEQUATE ADEQ [facility] Platelets LM Ql (Bld)Ordered By: Yemi Celaya on 08-09-2024 Platelet estimate ADEQUATE [facility] Potassium measurementOrdered By: Yemi Celaya on 08-09-2024 Potassium [Moles/Vol] 5.0 mmol/L 3.5-5.1 [facility] Potassium measurement 5.0 mmol/L 3.5-5.1 [facility] RBC Auto (Bld) [#/Vol]Ordere d By: Yemi Celaya on 08-09-2024 RBC (Bld) [#/Vol] 3.61 10*6/uL Low 4.2-5.4 [facility] Automated blood erythrocyte count 3.61 M/mm3 Low 4.2-5.4 [facility] RBC morphology finding Nom ( Bld)Ordered By: Yemi Celaya on 08-09-2024 Erythrocyte morphology assessment NORM C+C NORMAL NORM C&C [facility] Respiratory Cultureon 2024 RESPC No Haemophilus, Streptococcus pneumoniae, beta-hemolytic Streptococcus or Staphylococcus aureus isolated. Presumptive C albicans Amount Growth 1+ Normal [facility] Comment on above: Performed By: #### M 100.2400, M100.2000 ####[facility] [address] [place], [address] Review by pathologistOrdered By: Yemi Celaya on 08-09-2024 Pathologist review Darnell (Unsp spec) [Interp] Reviewed [facility] Segmented neutrophils/100 WB C (Bld)Ordered By: Yemi Celaya on 08-09-2024 Blood segmented neutrophils/100 leukocytes 81 % High 47-70 [facility] Serum anion gap measurementO rdered By: Yemi Celaya on 08-09-2024 Serum anion gap measurement 11 5-15 [facility] Serum or plasma calcium rena urement (mass/volume)Ordered By: Yemi Celaya on 08-09-2024 Calcium [Mass/Vol] 9.2 mg/dL 8.5-10.1 [facility] Serum or plasma creatinine m easurement (mass/volume)Ordered By: Yemi Celaya on 08-09-2024 Creatinine [Mass/Vol] 4.02 mg/dL High 0.55-1.02 [facility] Serum or plasma urea nitroge n measurement (mass/volume)Ordered By: Yemi Celaya on 08-09-2024 Urea nitrogen [Mass/Vol] 75 mg/dL High 7-18 [facility] Sodium levelOrdered By: Karis Celaya on 08-09-2024 Sodium [Moles/Vol] 135 mmol/L Low 136-145 [facility] Sodium level 135 mmol/L Low 136-145 [facility] Total cell countOrdered By: Yemi Celaya on 08-09-2024 Cells counted Molgen (Bld/Tiss) [#] 100 MANUAL DIFF [facility] Urea nitrogen [Mass/Vol]Orde red By: Yemi Celaya on 08-09-2024 Serum or plasma urea nitrogen measurement (mass/volume) 75 mg/dL High 7-18 [facility] White blood cell (WBC) count Ordered By: Yemi Celaya on 08-09-2024 WBC (Bld) [#/Vol] 9.3 10*3/uL 4.4-11.0 [facility] White blood cell (WBC) count 9.3 K/mm3 4.4-11.0 [facility] Basic Metabolic Profile (BMP )on 08-07-2024 BUN/CRE 16.0 RATIO Normal 10-20 [facility] Comment on above: Performed By: #### L 501.9520, L500.2500, L100.0100 ####[facility] [address], [address] CA,Total 9.0 mg/dL Normal 8.5-10.1 [facility] Comment on above: Performed By: #### L 501.9520, L500.2500, L100.0100 ####[facility] [address] [place], [address] Chloride [Moles/Vol] 101 mmol/L Normal 98-107 [facility] Comment on above: Performed By: #### L 501.9520, L500.2500, L100.0100 ####[facility] [address] [place], [address] CO2 [Moles/Vol] 23.0 mmol/L Normal 21.0-32.0 [facility] Comment on above: Performed By: #### L 501.9520, L500.2500, L100.0100 ####[facility] [address] [place], [address] Creatinine [Mass/Vol] 3.49 mg/dL High 0.55-1.02 [facility] Comment on above: Result Comment: The validity of the calculated GFR GFRAA in patients over70 years has not been determined. Clinical correlation isessential. Performed By: #### L 501.9520, L500.2500, L100.0100 ####[facility] [address] [place], [address] ECRCL 14.66 ml/min Normal [facility] Comment on above: Performed By: #### L 501.9520, L500.2500, L100.0100 ####[facility] [address], [address] EST GFR - AA 17 mL/min Low >60 [facility] Comment on above: Result Comment: Afri can Afghan GFR Calc Performed By: #### L 501.9520, L500.2500, L100.0100 ####[facility] [address] [place], [address] GAP 12 Normal 5-15 [facility] Comment on above: Performed By: #### L 501.9520, L500.2500, L100.0100 ####[facility] [address] [place], [address] GFR/1.73 sq M.predicted among non-blacks MDRD (S/P/Bld) [Vol rate/Area] 14 mL/min/{1.73_m2} Low >60 [facility] Comment on above: Result Comment: Non- GFR Calc Performed By: #### L 501.9520, L500.2500, L100.0100 ####[facility] [address] [place], [address] Glucose [Mass/Vol] 97 mg/dL Normal 74-106 [facility] Comment on above: Performed By: #### L 501.9520, L500.2500, L100.0100 ####[facility] [address] [place], [address] Potassium [Moles/Vol] 4.5 mmol/L Normal 3.5-5.1 [facility] Comment on above: Performed By: #### L 501.9520, L500.2500, L100.0100 ####[facility] [address] [place], [address] Sodium [Moles/Vol] 136 mmol/L Normal 136-145 [facility] Comment on above: Performed By: #### L 501.9520, L500.2500, L100.0100 ####[facility] [address] [place], [address] Urea nitrogen [Mass/Vol] 56 mg/dL High 7-18 [facility] Comment on above: Performed By: #### L 501.9520, L500.2500, L100.0100 ####[facility] [address] [place], [address] CBC W/Diff, Automatedon 02-0 4-2024 Absolute Lymph 0.95 X10 3/uL Normal 0.83-4.51 [facility] Comment on above: Performed By: #### L 501.9520, L500.2500, L100.0100 ####[facility] [address] [place], [address] Absolute Neut 7.5 X10 3/uL Normal 2.0-7.7 [facility] Comment on above: Performed By: #### L 501.9520, L500.2500, L100.0100 ####[facility] [address] [place], [address] Basophils/100 WBC (Bld) 0.6 % Normal 0-1 [facility] Comment on above: Performed By: #### L 501.9520, L500.2500, L100.0100 ####[facility] [address] [place], [address] Eosinophils/100 WBC (Bld) 0.0 % Normal 0-5 [facility] Comment on above: Performed By: #### L 501.9520, L500.2500, L100.0100 ####[facility] [address] [place], [address] Erythrocyte distribution width (RBC) [Ratio] 15.3 % High 11.6-14.6 [facility] Comment on above: Performed By: #### L 501.9520, L500.2500, L100.0100 ####[facility] [address] [place], [address] Hematocrit (Bld) [Volume fraction] 30.9 % Low 37-47 [facility] Comment on above: Performed By: #### L 501.9520, L500.2500, L100.0100 ####[facility] [address], [address] Hemoglobin (Bld) [Mass/Vol] 9.8 g/dL Low 12.0-15.0 [facility] Comment on above: Performed By: #### L 501.9520, L500.2500, L100.0100 ####[facility] [address] [place], [address] IG% 2.300 High 0.0-0.9 [facility] Comment on above: Result Comment: IG% - Immature Granulocytes (promyelocytes, myelocytes andmetamyelocytes) > 1% indicates that a LEFT SHIFT is Present. Performed By: #### L 501.9520, L500.2500, L100.0100 ####[facility] [address] [place], [address] Lymphocytes/100 WBC (Bld) 10.5 % Low 19-41 [facility] Comment on above: Performed By: #### L 501.9520, L500.2500, L100.0100 ####[facility] [address] [place], [address] MCH (RBC) [Entitic mass] 30.5 pg Normal 27.0-32.0 [facility] Comment on above: Performed By: #### L 501.9520, L500.2500, L100.0100 ####[facility] [address] [place], [address] MCHC (RBC) [Mass/Vol] 31.7 g/dL Low 32-36 [facility] Comment on above: Performed By: #### L 501.9520, L500.2500, L100.0100 ####[facility] [address] [place], [address] MCV (RBC) [Entitic vol] 96.3 fL Normal 81-99 [facility] Comment on above: Performed By: #### L 501.9520, L500.2500, L100.0100 ####[facility] [address], [address] Monocytes/100 WBC (Bld) 3.1 % Normal 0-10 [facility] Comment on above: Performed By: #### L 501.9520, L500.2500, L100.0100 ####[facility] [address] [place], [address] Neutrophils/100 WBC (Bld) 83.5 % High 47-70 [facility] Comment on above: Performed By: #### L 501.9520, L500.2500, L100.0100 ####[facility] [address] [place], [address] Nucleated RBC (Bld) [#/Vol] 0 10*3/uL Normal 0-5 [facility] Comment on above: Performed By: #### L 501.9520, L500.2500, L100.0100 ####[facility] [address] [place], [address] Platelet mean volume (Bld) [Entitic vol] 9.4 fL Normal 6.2-12.0 [facility] Comment on above: Performed By: #### L 501.9520, L500.2500, L100.0100 ####[facility] [address] [place], [address] Platelets (Bld) [#/Vol] 333 10*3/uL Normal 150-450 [facility] Comment on above: Performed By: #### L 501.9520, L500.2500, L100.0100 ####[facility] [address] [place], [address] RBC (Bld) [#/Vol] 3.21 10*6/uL Low 4.2-5.4 [facility] Comment on above: Performed By: #### L 501.9520, L500.2500, L100.0100 ####[facility] [address] [place], [address] RDW SD 49.5 fl High 35.1-43.9 [facility] Comment on above: Performed By: #### L 501.9520, L500.2500, L100.0100 ####[facility] [address] [place], [address] WBC (Bld) [#/Vol] 9.0 10*3/uL Normal 4.4-11.0 [facility] Comment on above: Performed By: #### L 501.9520, L500.2500, L100.0100 ####[facility] [address] [place], [address] Gram Stainon 08-07-2024 GS Acceptable Specimen? Yes (<25 Epithelial cells per/lpf) Gram Stain Rare White Blood Cells No organisms seen Normal [facility] Comment on above: Performed By: #### M 100.2400, M100.2000 ####[facility] [address] [place], [address] Serum or plasma thyroid stim ulating hormone (TSH) measurement (units/volume)Ordered By: Yemi Celaya on 08-07-2024 TSH Qn 1.140 uIU/mL 0.358-3.740 [facility] TSH QnOrdered By: Ymei Ogden and on 08-07-2024 Serum or plasma thyroid stimulating hormone (TSH) measurement (units/volume) 1.140 uIU/mL 0.358-3.740 [facility] Thyroid Stim Hormone (TSH)on 08-07-2024 TSH 1.140 uIU/mL Normal 0.358-3.740 [facility] Comment on above: Performed By: #### L 501.9520, L500.2500, L100.0100 ####[facility] [address] [place], [address] Arterial patency Wrist arter y --pre arterial punctureOrdered By: Yemi Celaya on 08-06-2024 Assessment of wrist artery patency prior to arterial puncture N/A [facility] Assessment of wrist artery p atency prior to arterial punctureOrdered By: Yemi Celaya on 08-06-2024 Arterial patency Wrist artery --pre arterial puncture N/A [facility] BNP (brain natriuretic pepti de measurement)Ordered By: Yemi Celaya on 08-06-2024 Natriuretic peptide B (Bld) [Mass/Vol] 138.6 pg/mL High 0-100 [facility] BNP (brain natriuretic peptide measurement) 138.6 pg/mL High 0-100 [facility] BNP,B-Type NATRIURETIC PEPTI Arian 08-06-2024 Natriuretic peptide B (Bld) [Mass/Vol] 138.6 pg/mL High 0-100 [facility] Comment on above: Performed By: #### L 503.6620 ####[facility] [address] [place], [address] Base excess Calc (BldV) [Mol es/Vol]Ordered By: Yemi Celaya on 08-06-2024 Blood base excess determination 4 mmol/L High -2-2 [facility] Basic Metabolic Profile (BMP )on 08-06-2024 BUN/CRE 15.3 RATIO Normal 10-20 [facility] Comment on above: Performed By: #### L 500.2500, L100.0100, L501.5200, L501.9520, L501.2300 ####[facility] [address] [place], [address] CA,Total 8.7 mg/dL Normal 8.5-10.1 [facility] Comment on above: Performed By: #### L 500.2500, L100.0100, L501.5200, L501.9520, L501.2300 ####[facility] [address] [place], [address] Chloride [Moles/Vol] 103 mmol/L Normal 98-107 [facility] Comment on above: Performed By: #### L 500.2500, L100.0100, L501.5200, L501.9520, L501.2300 ####[facility] [address] [place], [address] CO2 [Moles/Vol] 26.0 mmol/L Normal 21.0-32.0 [facility] Comment on above: Performed By: #### L 500.2500, L100.0100, L501.5200, L501.9520, L501.2300 ####[facility] [address] [place], [address] Creatinine [Mass/Vol] 4.17 mg/dL High 0.55-1.02 [facility] Comment on above: Result Comment: The validity of the calculated GFR GFRAA in patients over70 years has not been determined. Clinical correlation isessential. Performed By: #### L 500.2500, L100.0100, L501.5200, L501.9520, L501.2300 ####[facility] [address] [place], [address] ECRCL 11.15 ml/min Normal [facility] Comment on above: Performed By: #### L 500.2500, L100.0100, L501.5200, L501.9520, L501.2300 ####[facility] [address] [place], [address] EST GFR - AA 14 mL/min Low >60 [facility] Comment on above: Result Comment: Afri can Afghan GFR Calc Performed By: #### L 500.2500, L100.0100, L501.5200, L501.9520, L501.2300 ####[facility] [address] [place], [address] GAP 11 Normal 5-15 [facility] Comment on above: Performed By: #### L 500.2500, L100.0100, L501.5200, L501.9520, L501.2300 ####[facility] [address] [place], [address] GFR/1.73 sq M.predicted among non-blacks MDRD (S/P/Bld) [Vol rate/Area] 11 mL/min/{1.73_m2} Low >60 [facility] Comment on above: Result Comment: Non- GFR Calc Performed By: #### L 500.2500, L100.0100, L501.5200, L501.9520, L501.2300 ####[facility] [address] [place], [address] Glucose [Mass/Vol] 126 mg/dL High 74-106 [facility] Comment on above: Result Comment: Fast ing Glucose result greater than or equal to 126 mg/dLsuggests DIABETES MELLITUS per A.D.A. criteria. Performed By: #### L 500.2500, L100.0100, L501.5200, L501.9520, L501.2300 ####[facility] [address] [place], [address] Potassium [Moles/Vol] 4.4 mmol/L Normal 3.5-5.1 [facility] Comment on above: Performed By: #### L 500.2500, L100.0100, L501.5200, L501.9520, L501.2300 ####[facility] [address] [place], [address] Sodium [Moles/Vol] 140 mmol/L Normal 136-145 [facility] Comment on above: Performed By: #### L 500.2500, L100.0100, L501.5200, L501.9520, L501.2300 ####[facility] [address] [place], [address] Urea nitrogen [Mass/Vol] 64 mg/dL High 7-18 [facility] Comment on above: Performed By: #### L 500.2500, L100.0100, L501.5200, L501.9520, L501.2300 ####[facility] [address] [place], [address] [facility] N/A Normal [facility] Comment on above: Performed By: #### L 9000.0800 ####[facility] [address] [place], [address] Base excess Calc (Bld) [Moles/Vol] 4 mmol/L High -2 to +2 [facility] Comment on above: Performed By: #### L 9000.0800 ####[facility] [address] [place], [address] Blood Gas Type ART [facility] Comment on above: Performed By: #### L 9000.0800 ####[facility] [address] [place], [address] CO2 [Moles/Vol] 31 mmol/L Normal [facility] Comment on above: Performed By: #### L 9000.0800 ####[facility] [address] [place], [address] FI02 10.0 Normal [facility] Comment on above: Performed By: #### L 9000.0800 ####[facility] [address] [place], [address] HCO3 (Bld) [Moles/Vol] 29.4 mmol/L High 22-26 [facility] Comment on above: Performed By: #### L 9000.0800 ####[facility] [address] [place], [address] Mode Not entered Normal [facility] Comment on above: Performed By: #### L 9000.0800 ####[facility] [address] [place], [address] O2 Delivery Dev Not entered Normal [facility] Comment on above: Performed By: #### L 9000.0800 ####[facility] [address] [place], [address] pCO2 49.7 mmHg High 35-45 [facility] Comment on above: Performed By: #### L 0.0800 ####[facility] [address] [place], [address] pH (Bld) 7.38 [pH] Normal 7.35-7.45 [facility] Comment on above: Performed By: #### L 9000.0800 ####[facility] [address] [place], [address] PO2 83 mmHG Normal 75-100 [facility] Comment on above: Performed By: #### L 9000.0800 ####[facility] [address] [place], [address] SITE R Radial Normal [facility] Comment on above: Performed By: #### L 9000.0800 ####[facility] [address] [place], [address] SO2 96 Normal 95-99 [facility] Comment on above: Performed By: #### L 9000.0800 ####[facility] [address] [place], [address] Blood base excess determinat ionOrdered By: Yemi Celaya on 08-06-2024 Base excess Calc (BldV) [Moles/Vol] 4 mmol/L High -2-2 [facility] Blood bicarbonate measuremen tOrdered By: Yemi Celaya on 08-06-2024 HCO3 (Bld) [Moles/Vol] 29.4 mmol/L High 22-26 [facility] Blood bicarbonate measurement 29.4 mmol/L High - [facility] CBC W/Diff, Automatedon 02-0 3-2024 Absolute Lymph 0.84 X10 3/uL Normal 0.83-4.51 [facility] Comment on above: Performed By: #### L 500.2500, L100.0100, L501.5200, L501.9520, L501.2300 ####[facility] [address] [place], [address] Absolute Neut 7.9 X10 3/uL High 2.0-7.7 [facility] Comment on above: Performed By: #### L 500.2500, L100.0100, L501.5200, L501.9520, L501.2300 ####[facility] [address] [place], [address] Basophils/100 WBC (Bld) 0.3 % Normal 0-1 [facility] Comment on above: Performed By: #### L 500.2500, L100.0100, L501.5200, L501.9520, L501.2300 ####[facility] [address] [place], [address] Eosinophils/100 WBC (Bld) 0.0 % Normal 0-5 [facility] Comment on above: Performed By: #### L 500.2500, L100.0100, L501.5200, L501.9520, L501.2300 ####[facility] [address] [place], [address] Erythrocyte distribution width (RBC) [Ratio] 15.1 % High 11.6-14.6 [facility] Comment on above: Performed By: #### L 500.2500, L100.0100, L501.5200, L501.9520, L501.2300 ####[facility] [address] [place], [address] Hematocrit (Bld) [Volume fraction] 31.8 % Low 37-47 [facility] Comment on above: Performed By: #### L 500.2500, L100.0100, L501.5200, L501.9520, L501.2300 ####[facility] [address] [place], [address] Hemoglobin (Bld) [Mass/Vol] 9.8 g/dL Low 12.0-15.0 [facility] Comment on above: Performed By: #### L 500.2500, L100.0100, L501.5200, L501.9520, L501.2300 ####[facility] [address] [place], [address] IG% 2.400 High 0.0-0.9 [facility] Comment on above: Result Comment: IG% - Immature Granulocytes (promyelocytes, myelocytes andmetamyelocytes) > 1% indicates that a LEFT SHIFT is Present. Performed By: #### L 500.2500, L100.0100, L501.5200, L501.9520, L501.2300 ####[facility] [address] [place], [address] Lymphocytes/100 WBC (Bld) 9.0 % Low 19-41 [facility] Comment on above: Performed By: #### L 500.2500, L100.0100, L501.5200, L501.9520, L501.2300 ####[facility] [address] [place], [address] MCH (RBC) [Entitic mass] 30.1 pg Normal 27.0-32.0 [facility] Comment on above: Performed By: #### L 500.2500, L100.0100, L501.5200, L501.9520, L501.2300 ####[facility] [address] [place], [address] MCHC (RBC) [Mass/Vol] 30.8 g/dL Low 32-36 [facility] Comment on above: Performed By: #### L 500.2500, L100.0100, L501.5200, L501.9520, L501.2300 ####[facility] [address] [place], [address] MCV (RBC) [Entitic vol] 97.5 fL Normal 81-99 [facility] Comment on above: Performed By: #### L 500.2500, L100.0100, L501.5200, L501.9520, L501.2300 ####[facility] [address] [place], [address] Monocytes/100 WBC (Bld) 3.0 % Normal 0-10 [facility] Comment on above: Performed By: #### L 500.2500, L100.0100, L501.5200, L501.9520, L501.2300 ####[facility] [address] [place], [address] Neutrophils/100 WBC (Bld) 85.3 % High 47-70 [facility] Comment on above: Performed By: #### L 500.2500, L100.0100, L501.5200, L501.9520, L501.2300 ####[facility] [address] [place], [address] Nucleated RBC (Bld) [#/Vol] 0 10*3/uL Normal 0-5 [facility] Comment on above: Performed By: #### L 500.2500, L100.0100, L501.5200, L501.9520, L501.2300 ####[facility] [address] [place], [address] Platelet mean volume (Bld) [Entitic vol] 9.5 fL Normal 6.2-12.0 [facility] Comment on above: Performed By: #### L 500.2500, L100.0100, L501.5200, L501.9520, L501.2300 ####[facility] [address] [place], [address] Platelets (Bld) [#/Vol] 306 10*3/uL Normal 150-450 [facility] Comment on above: Performed By: #### L 500.2500, L100.0100, L501.5200, L501.9520, L501.2300 ####[facility] [address] [place], [address] RBC (Bld) [#/Vol] 3.26 10*6/uL Low 4.2-5.4 [facility] Comment on above: Performed By: #### L 500.2500, L100.0100, L501.5200, L501.9520, L501.2300 ####[facility] [address] [place], [address] RDW SD 50.0 fl High 35.1-43.9 [facility] Comment on above: Performed By: #### L 500.2500, L100.0100, L501.5200, L501.9520, L501.2300 ####[facility] [address] [place], [address] WBC (Bld) [#/Vol] 9.3 10*3/uL Normal 4.4-11.0 [facility] Comment on above: Performed By: #### L 500.2500, L100.0100, L501.5200, L501.9520, L501.2300 ####[facility] [address] [place], [address] CTA Chest W/WO Contraston CTA Chest W/WO Contrast Normal [facility] Chest without Contraston Chest without Contrast Normal [facility] Consultation - Nephrologyon 08-06-2024 Consultation - Nephrology Normal [facility] D-Dimer Quantitative (DVT/PE )on 02-03-2025 D-DIMER QUANT 1.01 FEU/ug/m Invalid Interpretation Code 0.27-0.49 [facility] Comment on above: Order Comment: CRITI YOANA VALUE CALLED TO CHERYL SOTO08/06/24 0902 Sima Gilbert.RESULTS READ BACK BY SAME. Result Comment: D-Di lucía ELEVATED (>0.49): Additional studies and clinicalassessments are indicated to conclude diagnosis of:Deep Vein Thrombosis (DVT) or Pulmonary Embolism (PE) Performed By: #### L 300.8000 ####[facility] [address] [place], [place], [id number] D-dimer measurement for deep venous thrombosisOrdered By: Yemi Celaya on 08-06-2024 D-dimer measurement for deep venous thrombosis 1.01 FEU/ug/m High 0.27-0.49 [facility] Determination of fraction of inspired oxygenOrdered By: Yemi Celaya on 08-06-2024 Determination of fraction of inspired oxygen 10.0 [facility] Emergency Department Summary on 08-06-2024 Emergency Department Summary Normal [facility] Gram stainOrdered By: Cuco Celaya on 08-06-2024 Microscopic observation Gram stain Nom (Unsp spec) [facility] H AND P Exam - Hospitaliston 08-06-2024 H&P Exam - Hospitalist Normal [facility] Influenza virus A and B and SARS-CoV-2 (COVID-19) and Respiratory syncytial virus RNAOrdered By: Yemi Celaya on 08-06-2024 SARS-CoV-2 (COVID-19) RNA FOZIA+probe Ql (Unsp spec) RSV Abnormal [facility] Influenza virus A and B and SARS-CoV-2 (COVID-19) and Respiratory syncytial virus RNA RSV Abnormal [facility] M100.678on 08-06-2024 M100.678 Normal [facility] Comment on above: Performed By: #### M 100.678 ####[facility] [address] [place], [place], [address] Magnesiumon 08-06-2024 Magnesium [Mass/Vol] 2.1 mg/dL Normal 1.6-2.6 [facility] Comment on above: Performed By: #### L 500.2500, L100.0100, L501.5200, L501.9520, L501.2300 ####[facility] [address], [address] Magnesium measurementOrdered By: Hoang Foster on 08-06-2024 Magnesium [Mass/Vol] 2.1 mg/dL 1.6-2.6 [facility] Magnesium measurement 2.1 mg/dL 1.6-2.6 [facility] Measurement, pHOrdered By: Shani Celaya on 08-06-2024 pH (Unsp spec) 7.38 [pH] 7.35-7.45 [facility] Microbial respiratory cultur eOrdered By: Yemi Celaya on 08-06-2024 Microorganism identified Cx Nom (Unsp spec) Presumptive C albicans Abnormal [facility] Microorganism identified Cx Nom (Unsp spec)Ordered By: Yemi Celaya on 08-06-2024 Microbial respiratory culture Presumptive C albicans Abnormal [facility] No Panel InformationOrdered By: Yemi Celaya on 08-06-2024 ART [facility] R Radial [facility] Not entered [facility] Oxygen saturation measuremen tOrdered By: Yemi Celaya on 08-06-2024 Oxygen saturation measurement 96 % 95-99 [facility] Partial pressure of carbon d ioxide measurementOrdered By: Yemi Celaya on 08-06-2024 Partial pressure of carbon dioxide measurement 49.7 mmHg High 35-45 [facility] Partial pressure of oxygen m easurementOrdered By: Yemi Celaya on 08-06-2024 Partial pressure of oxygen measurement 83 mmHG 75-100 [facility] Phosphoruson 08-06-2024 Phosphate [Mass/Vol] 6.3 mg/dL High 2.5-4.9 [facility] Comment on above: Performed By: #### L 500.2500, L100.0100, L501.5200, L501.9520, L501.2300 ####[facility] [address] [place], [place], [id number] Phosphorus measurementOrdere d By: Hoang Foster on 08-06-2024 Phosphorus measurement 6.3 mg/dL High 2.5-4.9 [facility] Thyroid Stim Hormone (TSH)on 08-06-2024 TSH 1.310 uIU/mL Normal 0.358-3.740 [facility] Comment on above: Performed By: #### L 500.2500, L100.0100, L501.5200, L501.9520, L501.2300 ####[facility] [address] [place], [address] Total carbon dioxide measure mentOrdered By: Yemi Celaya on 08-06-2024 CO2 [Moles/Vol] 31 mmol/L [facility] Total carbon dioxide measurement 31 mmol/L [facility] pH (Unsp spec)Ordered By: Margaux Celaya on 08-06-2024 Measurement, pH 7.38 7.35-7.45 [facility] CBC W/Diff, Automatedon -3 Absolute Lymph 1.24 X10 3/uL Normal 0.83-4.51 [facility] Comment on above: Performed By: #### L 500.4050, L100.0100 ####[facility] [address] [place], [address] Absolute Neut 8.0 X10 3/uL High 2.0-7.7 [facility] Comment on above: Performed By: #### L 500.4050, L100.0100 ####[facility] [address] [place], [address] Basophils/100 WBC (Bld) 0.5 % Normal 0-1 [facility] Comment on above: Performed By: #### L 500.4050, L100.0100 ####[facility] [address] [place], [address] Eosinophils/100 WBC (Bld) 4.2 % Normal 0-5 [facility] Comment on above: Performed By: #### L 500.4050, L100.0100 ####[facility] [facility] [address] [place], [address] Erythrocyte distribution width (RBC) [Ratio] 15.4 % High 11.6-14.6 [facility] Comment on above: Performed By: #### L 500.4050, L100.0100 ####[facility] [address] [place], [address] Hematocrit (Bld) [Volume fraction] 28.5 % Low 37-47 [facility] Comment on above: Performed By: #### L 500.4050, L100.0100 ####[facility] [address] [place], [address] Hemoglobin (Bld) [Mass/Vol] 9.2 g/dL Low 12.0-15.0 [facility] Comment on above: Performed By: #### L 500.4050, L100.0100 ####[facility] [address] [place], [address] IG% 1.200 High 0.0-0.9 [facility] Comment on above: Result Comment: IG% - Immature Granulocytes (promyelocytes, myelocytes andmetamyelocytes) > 1% indicates that a LEFT SHIFT is Present. Performed By: #### L 500.4050, L100.0100 ####[facility] [address] [place], [address] Lymphocytes/100 WBC (Bld) 11.4 % Low 19-41 [facility] Comment on above: Performed By: #### L 500.4050, L100.0100 ####[facility] [address] [place], [address] MCH (RBC) [Entitic mass] 30.8 pg Normal 27.0-32.0 [facility] Comment on above: Performed By: #### L 500.4050, L100.0100 ####[facility] [address], [address] MCHC (RBC) [Mass/Vol] 32.3 g/dL Normal 32-36 [facility] Comment on above: Performed By: #### L 500.4050, L100.0100 ####[facility] [address] [place], [address] MCV (RBC) [Entitic vol] 95.3 fL Normal 81-99 [facility] Comment on above: Performed By: #### L 500.4050, L100.0100 ####[facility] [address] [place], [address] Monocytes/100 WBC (Bld) 8.8 % Normal 0-10 [facility] Comment on above: Performed By: #### L 500.4050, L100.0100 ####[facility] [address] [place], [address] Neutrophils/100 WBC (Bld) 73.9 % High 47-70 [facility] Comment on above: Performed By: #### L 500.4050, L100.0100 ####[facility] [address] [place], [address] Nucleated RBC (Bld) [#/Vol] 0 10*3/uL Normal 0-5 [facility] Comment on above: Performed By: #### L 500.4050, L100.0100 ####[facility] [address] [place], [address] Platelet mean volume (Bld) [Entitic vol] 9.3 fL Normal 6.2-12.0 [facility] Comment on above: Performed By: #### L 500.4050, L100.0100 ####[facility] [address] [place], [address] Platelets (Bld) [#/Vol] 289 10*3/uL Normal 150-450 [facility] Comment on above: Performed By: #### L 500.4050, L100.0100 ####[facility] [address] [place], [address] RBC (Bld) [#/Vol] 2.99 10*6/uL Low 4.2-5.4 [facility] Comment on above: Performed By: #### L 500.4050, L100.0100 ####[facility] [address] [place], [address] RDW SD 47.0 fl High 35.1-43.9 [facility] Comment on above: Performed By: #### L 500.4050, L100.0100 ####[facility] [address] [place], [address] WBC (Bld) [#/Vol] 10.8 10*3/uL Normal 4.4-11.0 [facility] Comment on above: Performed By: #### L 500.4050, L100.0100 ####[facility] [address] [place], [address] Comprehensive Metabolic Prof [facility] 08-03-2024 Albumin [Mass/Vol] 3.3 g/dL Normal 3.2-5.0 [facility] Comment on above: Performed By: #### L 500.4050, L100.0100 ####[facility] [address] [place], [address] Albumin/Globulin [Mass ratio] 0.9 {ratio} Normal 0.9-2.4 [facility] Comment on above: Performed By: #### L 500.4050, L100.0100 ####[facility] [address] [place], [address] ALK P 131 U/L High 45-117 [facility] Comment on above: Performed By: #### L 500.4050, L100.0100 ####[facility] [address] [place], [address] ALT [Catalytic activity/Vol] 24 U/L Normal 13-56 [facility] Comment on above: Performed By: #### L 500.4050, L100.0100 ####[facility] [address] [place], [address] AST [Catalytic activity/Vol] 12 U/L Low 15-37 [facility] Comment on above: Performed By: #### L 500.4050, L100.0100 ####[facility] [address] [place], [address] Bilirubin [Mass/Vol] 0.40 mg/dL Normal 0.20-1.00 [facility] Comment on above: Result Comment: For patients on eltrombopag therapy, use of Dimension Campbell TBIL is not recommended. Performed By: #### L 500.4050, L100.0100 ####[facility] [address] [place], [address] BUN/CRE 9.1 RATIO Low 10-20 [facility] Comment on above: Performed By: #### L 500.4050, L100.0100 ####[facility] [address] [place], [address] CA,Total 8.9 mg/dL Normal 8.5-10.1 [facility] Comment on above: Performed By: #### L 500.4050, L100.0100 ####[facility] [address] [place], [address] Chloride [Moles/Vol] 102 mmol/L Normal 98-107 [facility] Comment on above: Performed By: #### L 500.4050, L100.0100 ####[facility] [address] [place], [address] CO2 [Moles/Vol] 28.0 mmol/L Normal 21.0-32.0 [facility] Comment on above: Performed By: #### L 500.4050, L100.0100 ####[facility] [address] [place], [address] Creatinine [Mass/Vol] 3.63 mg/dL High 0.55-1.02 [facility] Comment on above: Result Comment: The validity of the calculated GFR GFRAA in patients over70 years has not been determined. Clinical correlation isessential. Performed By: #### L 500.4050, L100.0100 ####[facility] [address] [place], [address] ECRCL 13.48 ml/min Normal [facility] Comment on above: Performed By: #### L 500.4050, L100.0100 ####[facility] [address] [place], [address] EST GFR - AA 16 mL/min Low >60 [facility] Comment on above: Result Comment: Afri can Afghan GFR Calc Performed By: #### L 500.4050, L100.0100 ####[facility] [address] [place], [address] GAP 10 Normal 5-15 [facility] Comment on above: Performed By: #### L 500.4050, L100.0100 ####[facility] [address] [place], [address] GFR/1.73 sq M.predicted among non-blacks MDRD (S/P/Bld) [Vol rate/Area] 13 mL/min/{1.73_m2} Low >60 [facility] Comment on above: Result Comment: Non- GFR Calc Performed By: #### L 500.4050, L100.0100 ####[facility] [address] [place], [address] Globulin (S) [Mass/Vol] 3.7 g/dL Normal 2.2-4.2 [facility] Comment on above: Performed By: #### L 500.4050, L100.0100 ####[facility] [address] [place], [address] Glucose [Mass/Vol] 115 mg/dL High 74-106 [facility] Comment on above: Result Comment: Fast ing Glucose result from 100 to 125 mg/dLsuggests IMPAIRED HOMEOSTASIS per A.D.A. criteria. Performed By: #### L 500.4050, L100.0100 ####[facility] [address] [place], [address] Potassium [Moles/Vol] 3.4 mmol/L Low 3.5-5.1 [facility] Comment on above: Performed By: #### L 500.4050, L100.0100 ####[facility] [address] [place], [address] Sodium [Moles/Vol] 140 mmol/L Normal 136-145 [facility] Comment on above: Performed By: #### L 500.4050, L100.0100 ####[facility] [address] [place], [address] T PROT 7.0 g/dL Normal 6.4-8.2 [facility] Comment on above: Performed By: #### L 500.4050, L100.0100 ####[facility] [address] [place], [address] Urea nitrogen [Mass/Vol] 33 mg/dL High 7-18 [facility] Comment on above: Performed By: #### L 500.4050, L100.0100 ####[facility] [address] [place], [address] M100.678on 08-03-2024 M100.678 SARS-CoV-2 (COVID 19 ) Negative INFLUENZA A Negative INFLUENZA B Negative RSV PCR Negative Normal [facility] Comment on above: Performed By: #### M [id number] ####[facility] [address] [place], [address] 12 Lead EKGon 08-02-2024 12 Lead EKG Normal [facility] ALP [Catalytic activity/Vol] Ordered By: Dariel Combs on 08-02-2024 Serum or plasma alkaline phosphatase measurement 131 U/L High 45-117 [facility] ALT [Catalytic activity/Vol] Ordered By: Dariel Combs on 08-02-2024 Serum or plasma alanine aminotransferase (ALT) measurement 24 U/L 13-56 [facility] Absolute lymphocyte countOrd ered By: Dariel Combs on 08-02-2024 Lymphocytes Auto (Unsp spec) [#/Vol] 1.24 10*3/uL 0.83-4.51 [facility] Absolute neutrophil countOrd ered By: Dariel Combs on 08-02-2024 Absolute neutrophil count 8.0 X10^3/uL High 2.0-7.7 [facility] Albumin [Mass/Vol]Ordered By : Dariel Combs on 08-02-2024 Serum or plasma albumin measurement (mass/volume) 3.3 g/dL 3.2-5.0 [facility] Albumin to globulin ratioOrd ered By: Dariel Combs on 08-02-2024 Albumin to globulin ratio 0.9 RATIO 0.9-2.4 [facility] Automated lymphocyte count a s percentage of total leukocytesOrdered By: Dariel Combs on 08-02-2024 Lymphocytes/100 WBC Auto (Unsp spec) 11.4 % Low 19-41 [facility] Basophil percentageOrdered B y: Dariel Combs on 08-02-2024 Basophils/100 WBC (Bld) 0.5 % 0-1 [facility] Basophil percentage 0.5 % 0-1 [facility] Bilirubin, totalOrdered By: Dariel Combs on 08-02-2024 Bilirubin [Mass/Vol] 0.40 mg/dL 0.20-1.00 [facility] Bilirubin, total 0.40 mg/dL 0.20-1.00 [facility] Blood urea nitrogen (BUN)/cr eatinine ratioOrdered By: Dariel Combs on 08-02-2024 Blood urea nitrogen (BUN)/creatinine ratio 9.1 RATIO Low 10-20 [facility] Calcium [Mass/Vol]Ordered By : Dariel Combs on 08-02-2024 Serum or plasma calcium measurement (mass/volume) 8.9 mg/dL 8.5-10.1 [facility] Carbon dioxide measurementOr dered By: Dariel Combs on 08-02-2024 CO2 [Moles/Vol] 28.0 mmol/L 21.0-32.0 [facility] Carbon dioxide measurement 28.0 mmol/L 21.0-32.0 [facility] Chest PA and Lateralon 08-02 Chest PA and Lateral Normal [facility] Chloride measurementOrdered By: Dariel Combs on 08-02-2024 Chloride [Moles/Vol] 102 mmol/L 98-107 [facility] Chloride measurement 102 mmol/L 98-107 [facility] Creatinine [Mass/Vol]Ordered By: Dariel Combs on 08-02-2024 Serum or plasma creatinine measurement (mass/volume) 3.63 mg/dL High 0.55-1.02 [facility] Emergency Department Summary on 08-02-2024 Emergency Department Summary Normal [facility] Eosinophil percentageOrdered By: Dariel Combs on 08-02-2024 Eosinophils/100 WBC (Bld) 4.2 % 0-5 [facility] Eosinophil percentage 4.2 % 0-5 [facility] Erythrocyte distribution wid th (RBC) [Entitic vol]Ordered By: Dariel Combs on 08-02-2024 Erythrocyte distribution width standard deviation 47.0 fl High 35.1-43.9 [facility] Erythrocyte distribution wid th (RBC) [Ratio]Ordered By: Dariel Combs on 08-02-2024 Erythrocyte distribution width ratio 15.4 % High 11.6-14.6 [facility] Erythrocyte distribution wid th ratioOrdered By: Dariel Combs on 08-02-2024 Erythrocyte distribution width (RBC) [Ratio] 15.4 % High 11.6-14.6 [facility] Erythrocyte distribution wid th standard deviationOrdered By: Dariel Combs on 08-02-2024 Erythrocyte distribution width (RBC) [Ratio] 47.0 fl High 35.1-43.9 [facility] Estimated glomerular filtrat ion rate (GFR) AmericanOrdered By: Dariel Combs on 08-02-2024 Estimated glomerular filtration rate (GFR) 16 mL/min Low >60 [facility] Estimation of creatinine magdiel aranceOrdered By: Dariel Combs on 08-02-2024 Estimation of creatinine clearance 13.48 ml/min [facility] Glomerular filtration rate ( GFR) estimationOrdered By: Dariel Combs on 08-02-2024 GFR/1.73 sq M.predicted among non-blacks MDRD (S/P/Bld) [Vol rate/Area] 13 mL/min/{1.73_m2} Low >60 [facility] Glomerular filtration rate (GFR) estimation 13 mL/min Low >60 [facility] Glucose measurementOrdered B y: Dariel Combs on 08-02-2024 Glucose [Mass/Vol] 115 mg/dL High 74-106 [facility] Glucose measurement 115 mg/dL High 74-106 [facility] Hematocrit Auto (Bld) [Volum e fraction]Ordered By: Dariel Combs on 08-02-2024 Hematocrit (Bld) [Volume fraction] 28.5 % Low 37-47 [facility] Automated blood hematocrit (percentage) 28.5 % Low 37-47 [facility] Hemoglobin measurementOrdere d By: Dariel Combs on 08-02-2024 Hemoglobin (Bld) [Mass/Vol] 9.2 g/dL Low 12.0-15.0 [facility] Hemoglobin measurement 9.2 g/dL Low 12.0-15.0 [facility] Immature granulocytes/100 WB C Auto (Bld)Ordered By: Dariel Combs on 08-02-2024 Immature granulocytes/100 WBC (Bld) 1.200 % High 0.0-0.9 [facility] Automated immature granulocyte percentage 1.200 % High 0.0-0.9 [facility] Influenza virus A and B and SARS-CoV-2 (COVID-19) and Respiratory syncytial virus RNAOrdered By: Dariel Combs on 08-02-2024 SARS-CoV-2 (COVID-19) RNA FOZIA+probe Ql (Unsp spec) [facility] Lymphocytes Auto (Unsp spec) [#/Vol]Ordered By: Dariel Combs on 08-02-2024 Absolute lymphocyte count 1.24 X10^3/uL 0.83-4.51 [facility] Lymphocytes/100 WBC Auto (Un sp spec)Ordered By: Dariel Combs on 08-02-2024 Automated lymphocyte count as percentage of total leukocytes 11.4 % Low 19-41 [facility] MCV (RBC) [Entitic vol]Order ed By: Dariel Combs on 08-02-2024 MCV (mean corpuscular volume) determination 95.3 fL 81-99 [facility] MCV (mean corpuscular volume ) determinationOrdered By: Dariel Combs on 08-02-2024 MCV (RBC) [Entitic vol] 95.3 fL 81-99 [facility] Mean corpuscular hemoglobin (MCH) determinationOrdered By: Dariel Combs on 08-02-2024 MCH (RBC) [Entitic mass] 30.8 pg 27.0-32.0 [facility] Mean corpuscular hemoglobin (MCH) determination 30.8 pg 27.0-32.0 [facility] Mean corpuscular hemoglobin concentration (MCHC) determinationOrdered By: Dariel Combs on 08-02-2024 Mean corpuscular hemoglobin concentration (MCHC) determination 32.3 g/dL 32-36 [facility] Mean platelet volume determi nationOrdered By: Dariel Combs on 08-02-2024 Mean platelet volume determination 9.3 fl 6.2-12.0 [facility] Monocyte percentageOrdered B y: Dariel Combs on 08-02-2024 Monocytes/100 WBC (Bld) 8.8 % 0-10 [facility] Monocyte percentage 8.8 % 0-10 [facility] Neutrophil percentageOrdered By: Dariel Combs on 08-02-2024 Neutrophils/100 WBC (Bld) 73.9 % High 47-70 [facility] Neutrophil percentage 73.9 % High 47-70 [facility] No Panel InformationOrdered By: Dariel Combs on 08-02-2024 12 U/L Low 15-37 [facility] Nucleated red blood cell per centageOrdered By: Dariel Combs on 08-02-2024 Nucleated red blood cell percentage 0 % 0-5 [facility] Platelet countOrdered By: Angel Combs on 08-02-2024 Platelets (Bld) [#/Vol] 289 10*3/uL 150-450 [facility] Platelet count 289 K/mm3 150-450 [facility] Potassium measurementOrdered By: Dariel Combs on 08-02-2024 Potassium [Moles/Vol] 3.4 mmol/L Low 3.5-5.1 [facility] Potassium measurement 3.4 mmol/L Low 3.5-5.1 [facility] RBC Auto (Bld) [#/Vol]Ordere d By: Dariel Combs on 08-02-2024 RBC (Bld) [#/Vol] 2.99 10*6/uL Low 4.2-5.4 [facility] Automated blood erythrocyte count 2.99 M/mm3 Low 4.2-5.4 [facility] Serum anion gap measurementO rdered By: Dariel Combs on 08-02-2024 Serum anion gap measurement 10 5-15 [facility] Serum globulin measurementOr dered By: Dariel Combs on 08-02-2024 Globulin (S) [Mass/Vol] 3.7 g/dL 2.2-4.2 [facility] Serum globulin measurement 3.7 g/dL 2.2-4.2 [facility] Serum or plasma alanine [place] otransferase (ALT) measurementOrdered By: Dariel Combs on 08-02-2024 ALT [Catalytic activity/Vol] 24 U/L 13-56 [facility] Serum or plasma albumin rena urement (mass/volume)Ordered By: Dariel Combs on 08-02-2024 Albumin [Mass/Vol] 3.3 g/dL 3.2-5.0 [facility] Serum or plasma alkaline malka sphatase measurementOrdered By: Dariel Combs on 08-02-2024 ALP [Catalytic activity/Vol] 131 U/L High 45-117 [facility] Serum or plasma calcium rena urement (mass/volume)Ordered By: Dariel Combs on 08-02-2024 Calcium [Mass/Vol] 8.9 mg/dL 8.5-10.1 [facility] Serum or plasma creatinine m easurement (mass/volume)Ordered By: Dariel Combs on 08-02-2024 Creatinine [Mass/Vol] 3.63 mg/dL High 0.55-1.02 [facility] Serum or plasma urea nitroge n measurement (mass/volume)Ordered By: Dariel Combs on 08-02-2024 Urea nitrogen [Mass/Vol] 33 mg/dL High 7 [facility] Sodium levelOrdered By: Dariel Combs on 08-02-2024 Sodium [Moles/Vol] 140 mmol/L 136-145 [facility] Sodium level 140 mmol/L 136-145 [facility] Total proteinOrdered By: Blaine Combs on 08-02-2024 Protein [Mass/Vol] 7.0 g/dL 6.4-8.2 [facility] Total protein 7.0 g/dL 6.4-8.2 [facility] Urea nitrogen [Mass/Vol]Orde red By: Dariel Combs on 08-02-2024 Serum or plasma urea nitrogen measurement (mass/volume) 33 mg/dL High - [facility] White blood cell (WBC) count Ordered By: Dariel Combs on 08-02-2024 WBC (Bld) [#/Vol] 10.8 10*3/uL 4.4-11.0 [facility] White blood cell (WBC) count 10.8 K/mm3 4.4-11.0 [facility] CNPNon 08-01-2024 CNPN Telephone (INTMWS) SNEHA CARDENAS ([id number]) 1955 F Date Time Provider Department 08/01/24 JULIO DRAPER INTMWS During your visit today, we recorded the following information about you: Genna Lowry, RN 08/01/2024 4:45 PM Signed Michele from [facility] calls and reports that she just spoke [...] Anushka Alexis LPN 08/02/2024 8:23 AM Signed [facility] Nurse notified of below, going out to [...] by mouth two times a day. - mutidomoaa-iklxzome-ot rmoterol (BREZTRI) 160-9-4.8 mcg/actuation HFA aerosol inhaler [...] septic (HCC) (more content not included)... Normal [facility] CNOVon 07-31-2024 CNOV Office Visit (INTMWS ) SNEHA CARDENAS ([id number]) 1955 F Date Time Provider Department 07/31/24 11:00 AM JULIO DRAPER INTMWS During your visit today, we recorded the following information about you: Temperature Pulse Blood pressure Weight 96.5 degrees 92/minute 136/64 62.1 kg Julio Draper MD 08/01/2024 12:12 AM Signed This note was created using NoteWriter. [...] tablet by mouth two times a day. jlpmgzlwcx-oqnnajbf-fw rmoterol (BREZTRI) 160-9-4.8 mcg/actuation HFA aerosol inhaler [...] mL syrup (more content not included)... Normal [facility] Basic Metabolic Profile (BMP )on 07-30-2024 BUN Normal 7-18 [facility] Comment on above: Result Comment: Canc elled via OM: Order cancelled - Patient discharged Performed By: #### L 100.0100, L500.2500 ####[facility] [address] [place], [address] BUN/CRE Normal 10-20 [facility] Comment on above: Result Comment: Canc elled via OM: Order cancelled - Patient discharged Performed By: #### L 100.0100, L500.2500 ####[facility] [address] [place], [address] CA,Total Normal 8.5-10.1 [facility] Comment on above: Result Comment: Canc elled via OM: Order cancelled - Patient discharged Performed By: #### L 100.0100, L500.2500 ####[facility] [address] [place], [address] CL Normal 98-107 [facility] Comment on above: Result Comment: Canc elled via OM: Order cancelled - Patient discharged Performed By: #### L 100.0100, L500.2500 ####[facility] [address] [place], [address] CO2 Normal 21.0-32.0 [facility] Comment on above: Result Comment: Canc elled via OM: Order cancelled - Patient discharged Performed By: #### L 100.0100, L500.2500 ####[facility] [address] [place], [address] CREAT,SERUM Normal 0.55-1.02 [facility] Comment on above: Result Comment: Canc elled via OM: Order cancelled - Patient discharged Performed By: #### L 100.0100, L500.2500 ####[facility] [address], [address] EST GFR Normal >60 [facility] Comment on above: Result Comment: Canc elled via OM: Order cancelled - Patient discharged Performed By: #### L 100.0100, L500.2500 ####[facility] [address] [place], [address] EST GFR - AA Normal >60 [facility] Comment on above: Result Comment: Canc elled via OM: Order cancelled - Patient discharged Performed By: #### L 100.0100, L500.2500 ####[facility] [address] [place], [address] GAP Normal 5-15 [facility] Comment on above: Result Comment: Canc elled via OM: Order cancelled - Patient discharged Performed By: #### L 100.0100, L500.2500 ####[facility] [address] [place], [address] GLU Normal 74-106 [facility] Comment on above: Result Comment: Canc elled via OM: Order cancelled - Patient discharged Performed By: #### L 100.0100, L500.2500 ####[facility] [address] [place], [address] Potassium Normal 3.5-5.1 [facility] Comment on above: Result Comment: Canc elled via OM: Order cancelled - Patient discharged Performed By: #### L 100.0100, L500.2500 ####[facility] [address] [place], [address] Basic Metabolic Profile (BMP) Normal 136-145 [facility] Comment on above: Result Comment: Canc elled via OM: Order cancelled - Patient discharged Performed By: #### L 100.0100, L500.2500 ####[facility] [address] [place], [address] CBC W/Diff, Automatedon - Absolute Neut Normal 2.0-7.7 [facility] Comment on above: Result Comment: Canc elled via OM: Order cancelled - Patient discharged Performed By: #### L 100.0100, L500.2500 ####[facility] [address] [place], [address] HCT Normal 37-47 [facility] Comment on above: Result Comment: Canc elled via OM: Order cancelled - Patient discharged Performed By: #### L 100.0100, L500.2500 ####[facility] [address] [place], [address] HGB Normal 12.0-15.0 [facility] Comment on above: Result Comment: Canc elled via OM: Order cancelled - Patient discharged Performed By: #### L 100.0100, L500.2500 ####[facility] [address] [place], [address] MCH Normal 27.0-32.0 [facility] Comment on above: Result Comment: Canc elled via OM: Order cancelled - Patient discharged Performed By: #### L 100.0100, L500.2500 ####[facility] [address] [place], [address] MCHC Normal 32-36 [facility] Comment on above: Result Comment: Canc elled via OM: Order cancelled - Patient discharged Performed By: #### L 100.0100, L500.2500 ####[facility] [address] [place], [address] MCV Normal 81-99 [facility] Comment on above: Result Comment: Canc elled via OM: Order cancelled - Patient discharged Performed By: #### L 100.0100, L500.2500 ####[facility] [address] [place], [address] NEUT% Normal 47-70 [facility] Comment on above: Result Comment: Canc elled via OM: Order cancelled - Patient discharged Performed By: #### L 100.0100, L500.2500 ####[facility] [address] [place], [address] PLT Normal 150-450 [facility] Comment on above: Result Comment: Canc elled via OM: Order cancelled - Patient discharged Performed By: #### L 100.0100, L500.2500 ####[facility] [address] [place], [address] RBC Normal 4.2-5.4 [facility] Comment on above: Result Comment: Canc elled via OM: Order cancelled - Patient discharged Performed By: #### L 100.0100, L500.2500 ####[facility] [address] [place], [address] RDW CV Normal 11.6-14.6 [facility] Comment on above: Result Comment: Canc elled via OM: Order cancelled - Patient discharged Performed By: #### L 100.0100, L500.2500 ####[facility] [address] [place], [address] RDW SD Normal 35.1-43.9 [facility] Comment on above: Result Comment: Canc elled via OM: Order cancelled - Patient discharged Performed By: #### L 100.0100, L500.2500 ####[facility] [address] [place], [address] WBC Normal 4.4-11.0 [facility] Comment on above: Result Comment: Canc elled via OM: Order cancelled - Patient discharged Performed By: #### L 100.0100, L500.2500 ####[facility] [address] [place], [address] CNPKalpana 07-30-2024 MARIANN Telephone (INTMWS) CONORSNEHA MENON ([id number]) 1955 F Date Time Provider Department 07/30/24 JULIO DRAPER During your visit today, we recorded the following information about you: Annette Farr LPN 07/30/2024 4:00 PM Signed Nelson with [facility] , nursing calling with plan of care. [...] LPN - Fully Assessed Reason for Visit: [facility] [Other] [facility], nursing plan of care [Other] Prescriptions as [...] by mouth two times a day. - awavcsfhud-orskccvn-xx rmoterol (BREZTRI) 160-9-4.8 mcg/actuation HFA aerosol inhaler [...] T36.95XA]07/14/2023 04/12/2024 Pulmonary emphysema (HCC) [J43.9] 07/19/2023 10/10/20 (more content not included)... Normal [facility] Basic Metabolic Profile (BMP )on 07-29-2024 BUN Normal 7-18 [facility] Comment on above: Result Comment: Canc elled via OM: Order cancelled - Patient discharged Performed By: #### L 100.0100, L500.2500 ####[facility] [address] [place], [address] BUN/CRE Normal 10-20 [facility] Comment on above: Result Comment: Canc elled via OM: Order cancelled - Patient discharged Performed By: #### L 100.0100, L500.2500 ####[facility] [address] [place], [address] CA,Total Normal 8.5-10.1 [facility] Comment on above: Result Comment: Canc elled via OM: Order cancelled - Patient discharged Performed By: #### L 100.0100, L500.2500 ####[facility] [address] [place], [address] CL Normal 98-107 [facility] Comment on above: Result Comment: Canc elled via OM: Order cancelled - Patient discharged Performed By: #### L 100.0100, L500.2500 ####[facility] [address] [place], [address] CO2 Normal 21.0-32.0 [facility] Comment on above: Result Comment: Canc elled via OM: Order cancelled - Patient discharged Performed By: #### L 100.0100, L500.2500 ####[facility] [address] [place], [address] CREAT,SERUM Normal 0.55-1.02 [facility] Comment on above: Result Comment: Canc elled via OM: Order cancelled - Patient discharged Performed By: #### L 100.0100, L500.2500 ####[facility] [address] [place], [address] EST GFR Normal >60 [facility] Comment on above: Result Comment: Canc elled via OM: Order cancelled - Patient discharged Performed By: #### L 100.0100, L500.2500 ####[facility] [address] [place], [address] EST GFR - AA Normal >60 [facility] Comment on above: Result Comment: Canc elled via OM: Order cancelled - Patient discharged Performed By: #### L 100.0100, L500.2500 ####[facility] [address] [place], [address] GAP Normal 5-15 [facility] Comment on above: Result Comment: Canc elled via OM: Order cancelled - Patient discharged Performed By: #### L 100.0100, L500.2500 ####[facility] [address] [place], [address] GLU Normal 74-106 [facility] Comment on above: Result Comment: Canc elled via OM: Order cancelled - Patient discharged Performed By: #### L 100.0100, L500.2500 ####[facility] [address] [place], [address] Potassium Normal 3.5-5.1 [facility] Comment on above: Result Comment: Canc elled via OM: Order cancelled - Patient discharged Performed By: #### L 100.0100, L500.2500 ####[facility] [address] [place], [address] Basic Metabolic Profile (BMP) Normal 136-145 [facility] Comment on above: Result Comment: Canc elled via OM: Order cancelled - Patient discharged Performed By: #### L 100.0100, L500.2500 ####[facility] [address] [place], [address] CBC W/Diff, Automatedon 01-2 Absolute Neut Normal 2.0-7.7 [facility] Comment on above: Result Comment: Canc elled via OM: Order cancelled - Patient discharged Performed By: #### L 100.0100, L500.2500 ####[facility] [address] [place], [address] HCT Normal 37-47 [facility] Comment on above: Result Comment: Canc elled via OM: Order cancelled - Patient discharged Performed By: #### L 100.0100, L500.2500 ####[facility] [address] [place], [address] HGB Normal 12.0-15.0 [facility] Comment on above: Result Comment: Canc elled via OM: Order cancelled - Patient discharged Performed By: #### L 100.0100, L500.2500 ####[facility] [address] [place], [address] MCH Normal 27.0-32.0 [facility] Comment on above: Result Comment: Canc elled via OM: Order cancelled - Patient discharged Performed By: #### L 100.0100, L500.2500 ####[facility] [address] [place], [address] MCHC Normal 32-36 [facility] Comment on above: Result Comment: Canc elled via OM: Order cancelled - Patient discharged Performed By: #### L 100.0100, L500.2500 ####[facility] [address] [place], [address] MCV Normal 81-99 [facility] Comment on above: Result Comment: Canc elled via OM: Order cancelled - Patient discharged Performed By: #### L 100.0100, L500.2500 ####[facility] [address] [place], [address] NEUT% Normal 47-70 [facility] Comment on above: Result Comment: Canc elled via OM: Order cancelled - Patient discharged Performed By: #### L 100.0100, L500.2500 ####[facility] [address] [place], [address] PLT Normal 150-450 [facility] Comment on above: Result Comment: Canc elled via OM: Order cancelled - Patient discharged Performed By: #### L 100.0100, L500.2500 ####[facility] [address] [place], [address] RBC Normal 4.2-5.4 [facility] Comment on above: Result Comment: Canc elled via OM: Order cancelled - Patient discharged Performed By: #### L 100.0100, L500.2500 ####[facility] [address] [place], [address] RDW CV Normal 11.6-14.6 [facility] Comment on above: Result Comment: Canc elled via OM: Order cancelled - Patient discharged Performed By: #### L 100.0100, L500.2500 ####[facility] [address] [place], [address] RDW SD Normal 35.1-43.9 [facility] Comment on above: Result Comment: Canc elled via OM: Order cancelled - Patient discharged Performed By: #### L 100.0100, L500.2500 ####[facility] [address] [place], [address] WBC Normal 4.4-11.0 [facility] Comment on above: Result Comment: Canc elled via OM: Order cancelled - Patient discharged Performed By: #### L 100.0100, L500.2500 ####[facility] [address] [place], [address] Basic Metabolic Profile (BMP )on 07-28-2024 BUN Normal 7-18 [facility] Comment on above: Result Comment: Canc elled via OM: Order cancelled - Patient discharged Performed By: #### L 500.2500, L100.0100 ####[facility] [address], [address] BUN/CRE Normal 10-20 [facility] Comment on above: Result Comment: Canc elled via OM: Order cancelled - Patient discharged Performed By: #### L 500.2500, L100.0100 ####[facility] [address] [place], [address] CA,Total Normal 8.5-10.1 [facility] Comment on above: Result Comment: Canc elled via OM: Order cancelled - Patient discharged Performed By: #### L 500.2500, L100.0100 ####[facility] [address] [place], [address] CL Normal 98-107 [facility] Comment on above: Result Comment: Canc elled via OM: Order cancelled - Patient discharged Performed By: #### L 500.2500, L100.0100 ####[facility] [address] [place], [address] CO2 Normal 21.0-32.0 [facility] Comment on above: Result Comment: Canc elled via OM: Order cancelled - Patient discharged Performed By: #### L 500.2500, L100.0100 ####[facility] [address] [place], [address] CREAT,SERUM Normal 0.55-1.02 [facility] Comment on above: Result Comment: Canc elled via OM: Order cancelled - Patient discharged Performed By: #### L 500.2500, L100.0100 ####[facility] [address] [place], [address] EST GFR Normal >60 [facility] Comment on above: Result Comment: Canc elled via OM: Order cancelled - Patient discharged Performed By: #### L 500.2500, L100.0100 ####[facility] [address] [place], [address] EST GFR - AA Normal >60 [facility] Comment on above: Result Comment: Canc elled via OM: Order cancelled - Patient discharged Performed By: #### L 500.2500, L100.0100 ####[facility] [address] [place], [address] GAP Normal 5-15 [facility] Comment on above: Result Comment: Canc elled via OM: Order cancelled - Patient discharged Performed By: #### L 500.2500, L100.0100 ####[facility] [address] [place], [address] GLU Normal 74-106 [facility] Comment on above: Result Comment: Canc elled via OM: Order cancelled - Patient discharged Performed By: #### L 500.2500, L100.0100 ####[facility] [address] [place], [address] Potassium Normal 3.5-5.1 [facility] Comment on above: Result Comment: Canc elled via OM: Order cancelled - Patient discharged Performed By: #### L 500.2500, L100.0100 ####[facility] [address] [place], [address] Basic Metabolic Profile (BMP) Normal 136-145 [facility] Comment on above: Result Comment: Canc elled via OM: Order cancelled - Patient discharged Performed By: #### L 500.2500, L100.0100 ####[facility] [address] [place], [address] CBC W/Diff, Automatedon 07-05 Absolute Neut Normal 2.0-7.7 [facility] Comment on above: Result Comment: Canc elled via OM: Order cancelled - Patient discharged Performed By: #### L 500.2500, L100.0100 ####[facility] [address] [place], [address] HCT Normal 37-47 [facility] Comment on above: Result Comment: Canc elled via OM: Order cancelled - Patient discharged Performed By: #### L 500.2500, L100.0100 ####[facility] [address], [address] HGB Normal 12.0-15.0 [facility] Comment on above: Result Comment: Canc elled via OM: Order cancelled - Patient discharged Performed By: #### L 500.2500, L100.0100 ####[facility] [address] [place], [address] MCH Normal 27.0-32.0 [facility] Comment on above: Result Comment: Canc elled via OM: Order cancelled - Patient discharged Performed By: #### L 500.2500, L100.0100 ####[facility] [address] [place], [address] MCHC Normal 32-36 [facility] Comment on above: Result Comment: Canc elled via OM: Order cancelled - Patient discharged Performed By: #### L 500.2500, L100.0100 ####[facility] [address] [place], [address] MCV Normal 81-99 [facility] Comment on above: Result Comment: Canc elled via OM: Order cancelled - Patient discharged Performed By: #### L 500.2500, L100.0100 ####[facility] [address] [place], [address] NEUT% Normal 47-70 [facility] Comment on above: Result Comment: Canc elled via OM: Order cancelled - Patient discharged Performed By: #### L 500.2500, L100.0100 ####[facility] [address] [place], [address] PLT Normal 150-450 [facility] Comment on above: Result Comment: Canc elled via OM: Order cancelled - Patient discharged Performed By: #### L 500.2500, L100.0100 ####[facility] [address] [place], [address] RBC Normal 4.2-5.4 [facility] Comment on above: Result Comment: Canc elled via OM: Order cancelled - Patient discharged Performed By: #### L 500.2500, L100.0100 ####[facility] [address] [place], [address] RDW CV Normal 11.6-14.6 [facility] Comment on above: Result Comment: Canc elled via OM: Order cancelled - Patient discharged Performed By: #### L 500.2500, L100.0100 ####[facility] [address] [place], [address] RDW SD Normal 35.1-43.9 [facility] Comment on above: Result Comment: Canc elled via OM: Order cancelled - Patient discharged Performed By: #### L 500.2500, L100.0100 ####[facility] [address] [place], [address] WBC Normal 4.4-11.0 [facility] Comment on above: Result Comment: Canc elled via OM: Order cancelled - Patient discharged Performed By: #### L 500.2500, L100.0100 ####[facility] [address] [place], [address] Culture, Blood (WB)on 2024 CUB Blood cultures x2, from two different sites No growth in 5 days. Normal [facility] Comment on above: Performed By: #### M 200.1000 ####[facility] [address] [place], [address] Absolute lymphocyte countOrd ered By: Gabby Sutherland on 07-27-2024 Lymphocytes Auto (Unsp spec) [#/Vol] 1.41 10*3/uL 0.83-4.51 [facility] Absolute neutrophil countOrd ered By: Gabby Sutherland on 07-27-2024 Absolute neutrophil count 6.9 X10^3/uL 2.0-7.7 [facility] Automated lymphocyte count a s percentage of total leukocytesOrdered By: Gabby Sutherland on 07-27-2024 Lymphocytes/100 WBC Auto (Unsp spec) 14.6 % Low 19-41 [facility] Basic Metabolic Profile (BMP )on 07-27-2024 BUN/CRE 13.0 RATIO Normal 10-20 [facility] Comment on above: Performed By: #### L 100.0100, L500.2500 ####[facility] [address] [place], [address] CA,Total 9.4 mg/dL Normal 8.5-10.1 [facility] Comment on above: Performed By: #### L 100.0100, L500.2500 ####[facility] [address] [place], [address] Chloride [Moles/Vol] 107 mmol/L Normal 98-107 [facility] Comment on above: Performed By: #### L 100.0100, L500.2500 ####[facility] [address] [place], [address] CO2 [Moles/Vol] 24.0 mmol/L Normal 21.0-32.0 [facility] Comment on above: Performed By: #### L 100.0100, L500.2500 ####[facility] [address] [place], [address] Creatinine [Mass/Vol] 3.55 mg/dL High 0.55-1.02 [facility] Comment on above: Result Comment: The validity of the calculated GFR GFRAA in patients over70 years has not been determined. Clinical correlation isessential. Performed By: #### L 100.0100, L500.2500 ####[facility] [address] [place], [address] ECRCL 13.10 ml/min Normal [facility] Comment on above: Performed By: #### L 100.0100, L500.2500 ####[facility] [address] [place], [address] EST GFR - AA 16 mL/min Low >60 [facility] Comment on above: Result Comment: Afri can Afghan GFR Calc Performed By: #### L 100.0100, L500.2500 ####[facility] [address] [place], [address] GAP 8 Normal 5-15 [facility] Comment on above: Performed By: #### L 100.0100, L500.2500 ####[facility] [address] [place], [address] GFR/1.73 sq M.predicted among non-blacks MDRD (S/P/Bld) [Vol rate/Area] 14 mL/min/{1.73_m2} Low >60 [facility] Comment on above: Result Comment: Non- GFR Calc Performed By: #### L 100.0100, L500.2500 ####[facility] [address] [place], [address] Glucose [Mass/Vol] 84 mg/dL Normal 74-106 [facility] Comment on above: Performed By: #### L 100.0100, L500.2500 ####[facility] [address] [place], [address] Potassium [Moles/Vol] 3.8 mmol/L Normal 3.5-5.1 [facility] Comment on above: Performed By: #### L 100.0100, L500.2500 ####[facility] [address] [place], [address] Sodium [Moles/Vol] 139 mmol/L Normal 136-145 [facility] Comment on above: Performed By: #### L 100.0100, L500.2500 ####[facility] [address] [place], [address] Urea nitrogen [Mass/Vol] 46 mg/dL High 7-18 [facility] Comment on above: Performed By: #### L 100.0100, L500.2500 ####[facility] [address] [place], [address] Basophil percentageOrdered B y: Gabby Sutherland on 07-27-2024 Basophils/100 WBC (Bld) 0.4 % 0-1 [facility] Basophil percentage 0.4 % 0-1 [facility] Blood urea nitrogen (BUN)/cr eatinine ratioOrdered By: Gabby Sutherland on 07-27-2024 Blood urea nitrogen (BUN)/creatinine ratio 13.0 RATIO 10-20 [facility] CBC W/Diff, Automatedon 07-05 Absolute Lymph 1.41 X10 3/uL Normal 0.83-4.51 [facility] Comment on above: Performed By: #### L 100.0100, L500.2500 ####[facility] [address] [place], [address] Absolute Neut 6.9 X10 3/uL Normal 2.0-7.7 [facility] Comment on above: Performed By: #### L 100.0100, L500.2500 ####[facility] [address] [place], [address] Basophils/100 WBC (Bld) 0.4 % Normal 0-1 [facility] Comment on above: Performed By: #### L 100.0100, L500.2500 ####[facility] [address] [place], [address] Eosinophils/100 WBC (Bld) 5.3 % High 0-5 [facility] Comment on above: Performed By: #### L 100.0100, L500.2500 ####[facility] [address] [place], [address] Erythrocyte distribution width (RBC) [Ratio] 13.0 % Normal 11.6-14.6 [facility] Comment on above: Performed By: #### L 100.0100, L500.2500 ####[facility] [address] [place], [address] Hematocrit (Bld) [Volume fraction] 28.6 % Low 37-47 [facility] Comment on above: Performed By: #### L 100.0100, L500.2500 ####[facility] [address] [place], [address] Hemoglobin (Bld) [Mass/Vol] 8.9 g/dL Low 12.0-15.0 [facility] Comment on above: Performed By: #### L 100.0100, L500.2500 ####[facility] [address] [place], [address] IG% 1.300 High 0.0-0.9 [facility] Comment on above: Result Comment: IG% - Immature Granulocytes (promyelocytes, myelocytes andmetamyelocytes) > 1% indicates that a LEFT SHIFT is Present. Performed By: #### L 100.0100, L500.2500 ####[facility] [address] [place], [address] Lymphocytes/100 WBC (Bld) 14.6 % Low 19-41 [facility] Comment on above: Performed By: #### L 100.0100, L500.2500 ####[facility] [address] [place], [address] MCH (RBC) [Entitic mass] 30.1 pg Normal 27.0-32.0 [facility] Comment on above: Performed By: #### L 100.0100, L500.2500 ####[facility] [address] [place], [address] MCHC (RBC) [Mass/Vol] 31.1 g/dL Low 32-36 [facility] Comment on above: Performed By: #### L 100.0100, L500.2500 ####[facility] [address] [place], [address] MCV (RBC) [Entitic vol] 96.6 fL Normal 81-99 [facility] Comment on above: Performed By: #### L 100.0100, L500.2500 ####[facility] [address] [place], [address] Monocytes/100 WBC (Bld) 6.7 % Normal 0-10 [facility] Comment on above: Performed By: #### L 100.0100, L500.2500 ####[facility] [address] [place], [address] Neutrophils/100 WBC (Bld) 71.7 % High 47-70 [facility] Comment on above: Performed By: #### L 100.0100, L500.2500 ####[facility] [address] [place], [address] Nucleated RBC (Bld) [#/Vol] 0 10*3/uL Normal 0-5 [facility] Comment on above: Performed By: #### L 100.0100, L500.2500 ####[facility] [address] [place], [address] Platelet mean volume (Bld) [Entitic vol] 10.5 fL Normal 6.2-12.0 [facility] Comment on above: Performed By: #### L 100.0100, L500.2500 ####[facility] [address] [place], [address] Platelets (Bld) [#/Vol] 209 10*3/uL Normal 150-450 [facility] Comment on above: Performed By: #### L 100.0100, L500.2500 ####[facility] [address] [place], [address] RBC (Bld) [#/Vol] 2.96 10*6/uL Low 4.2-5.4 [facility] Comment on above: Performed By: #### L 100.0100, L500.2500 ####[facility] [address] [place], [address] RDW SD 46.2 fl High 35.1-43.9 [facility] Comment on above: Performed By: #### L 100.0100, L500.2500 ####[facility] [address] [place], [address] WBC (Bld) [#/Vol] 9.7 10*3/uL Normal 4.4-11.0 [facility] Comment on above: Performed By: #### L 100.0100, L500.2500 ####[facility] [address] [place], [address] Calcium [Mass/Vol]Ordered By : Gabby Sutherland on 07-27-2024 Serum or plasma calcium measurement (mass/volume) 9.4 mg/dL 8.5-10.1 [facility] Carbon dioxide measurementOr dered By: Gabby Sutherland on 07-27-2024 CO2 [Moles/Vol] 24.0 mmol/L 21.0-32.0 [facility] Carbon dioxide measurement 24.0 mmol/L 21.0-32.0 [facility] Chloride measurementOrdered By: Gabby Sutherland on 07-27-2024 Chloride [Moles/Vol] 107 mmol/L 98-107 [facility] Chloride measurement 107 mmol/L 98-107 [facility] Creatinine [Mass/Vol]Ordered By: Gabby Sutherland on 07-27-2024 Serum or plasma creatinine measurement (mass/volume) 3.55 mg/dL High 0.55-1.02 [facility] Discharge Instructionon 07-05 Discharge Instruction Normal [facility] Eosinophil percentageOrdered By: Gabby Sutherland on 07-27-2024 Eosinophils/100 WBC (Bld) 5.3 % High 0-5 [facility] Eosinophil percentage 5.3 % High 0-5 [facility] Erythrocyte distribution wid th (RBC) [Entitic vol]Ordered By: Gabby Sutherland on 07-27-2024 Erythrocyte distribution width standard deviation 46.2 fl High 35.1-43.9 [facility] Erythrocyte distribution wid th (RBC) [Ratio]Ordered By: Gabby Sutherland on 07-27-2024 Erythrocyte distribution width ratio 13.0 % 11.6-14.6 [facility] Erythrocyte distribution wid th ratioOrdered By: Gabby Sutherland on 07-27-2024 Erythrocyte distribution width (RBC) [Ratio] 13.0 % 11.6-14.6 [facility] Erythrocyte distribution wid th standard deviationOrdered By: Gabby Sutherland on 07-27-2024 Erythrocyte distribution width (RBC) [Ratio] 46.2 fl High 35.1-43.9 [facility] Estimated glomerular filtrat ion rate (GFR) AmericanOrdered By: Gabby Sutherland on 07-27-2024 Estimated glomerular filtration rate (GFR) 16 mL/min Low >60 [facility] Estimation of creatinine magdiel aranceOrdered By: Gabby Sutherland on 07-27-2024 Estimation of creatinine clearance 13.10 ml/min [facility] Glomerular filtration rate ( GFR) estimationOrdered By: Gabby Sutherland on 07-27-2024 GFR/1.73 sq M.predicted among non-blacks MDRD (S/P/Bld) [Vol rate/Area] 14 mL/min/{1.73_m2} Low >60 [facility] Glomerular filtration rate (GFR) estimation 14 mL/min Low >60 [facility] Glucose measurementOrdered B y: Gabby Sutherland on 07-27-2024 Glucose [Mass/Vol] 84 mg/dL 74-106 [facility] Glucose measurement 84 mg/dL 74-106 [place] [facility] Hematocrit Auto (Bld) [Volum e fraction]Ordered By: Gabby Sutherland on 07-27-2024 Hematocrit (Bld) [Volume fraction] 28.6 % Low 37-47 [facility] Automated blood hematocrit (percentage) 28.6 % Low 37-47 [facility] Hemoglobin measurementOrdere d By: Gabby Sutherland on 07-27-2024 Hemoglobin (Bld) [Mass/Vol] 8.9 g/dL Low 12.0-15.0 [facility] Hemoglobin measurement 8.9 g/dL Low 12.0-15.0 [facility] Immature granulocytes/100 WB C Auto (Bld)Ordered By: Gabby Sutherland on 07-27-2024 Immature granulocytes/100 WBC (Bld) 1.300 % High 0.0-0.9 [facility] Automated immature granulocyte percentage 1.300 % High 0.0-0.9 [facility] Lymphocytes Auto (Unsp spec) [#/Vol]Ordered By: Gabby Sutherland on 07-27-2024 Absolute lymphocyte count 1.41 X10^3/uL 0.83-4.51 [facility] Lymphocytes/100 WBC Auto (Un sp spec)Ordered By: Gabby Sutherland on 07-27-2024 Automated lymphocyte count as percentage of total leukocytes 14.6 % Low 19-41 [facility] MCV (RBC) [Entitic vol]Order ed By: Gabby Sutherland on 07-27-2024 MCV (mean corpuscular volume) determination 96.6 fL 81-99 [facility] MCV (mean corpuscular volume ) determinationOrdered By: Gabby Sutherland on 07-27-2024 MCV (RBC) [Entitic vol] 96.6 fL 81-99 [facility] Mean corpuscular hemoglobin (MCH) determinationOrdered By: Gabby Sutherland on 07-27-2024 MCH (RBC) [Entitic mass] 30.1 pg 27.0-32.0 [facility] Mean corpuscular hemoglobin (MCH) determination 30.1 pg 27.0-32.0 [facility] Mean corpuscular hemoglobin concentration (MCHC) determinationOrdered By: Gabby Sutherland on 07-27-2024 Mean corpuscular hemoglobin concentration (MCHC) determination 31.1 g/dL Low 32-36 [facility] Mean platelet volume determi nationOrdered By: Gabby Sutherland on 07-27-2024 Mean platelet volume determination 10.5 fl 6.2-12.0 [facility] Monocyte percentageOrdered B y: Gabby Sutherland on 07-27-2024 Monocytes/100 WBC (Bld) 6.7 % 0-10 [facility] Monocyte percentage 6.7 % 0-10 [facility] Neutrophil percentageOrdered By: Gabby Sutherland on 07-27-2024 Neutrophils/100 WBC (Bld) 71.7 % High 47-70 [facility] Neutrophil percentage 71.7 % High 47-70 [facility] Nucleated red blood cell per centageOrdered By: Gabby Sutherland on 07-27-2024 Nucleated red blood cell percentage 0 % 0-5 [facility] Platelet countOrdered By: Renetta Sutherland on 07-27-2024 Platelets (Bld) [#/Vol] 209 10*3/uL 150-450 [facility] Platelet count 209 K/mm3 150-450 [facility] Potassium measurementOrdered By: Gabby Sutherland on 07-27-2024 Potassium [Moles/Vol] 3.8 mmol/L 3.5-5.1 [facility] Potassium measurement 3.8 mmol/L 3.5-5.1 [facility] RBC Auto (Bld) [#/Vol]Ordere d By: Gabby Sutherland on 07-27-2024 RBC (Bld) [#/Vol] 2.96 10*6/uL Low 4.2-5.4 [facility] Automated blood erythrocyte count 2.96 M/mm3 Low 4.2-5.4 [facility] Serum anion gap measurementO rdered By: Gabby Sutherland on 07-27-2024 Serum anion gap measurement 8 5-15 [facility] Serum or plasma calcium rena urement (mass/volume)Ordered By: Gabby Sutherland on 07-27-2024 Calcium [Mass/Vol] 9.4 mg/dL 8.5-10.1 [facility] Serum or plasma creatinine m easurement (mass/volume)Ordered By: Gabby Sutherland on 07-27-2024 Creatinine [Mass/Vol] 3.55 mg/dL High 0.55-1.02 [facility] Serum or plasma urea nitroge n measurement (mass/volume)Ordered By: Gabby Sutherland on 07-27-2024 Urea nitrogen [Mass/Vol] 46 mg/dL High 01-18 [facility] Sodium levelOrdered By: Gabby Sutherland on 07-27-2024 Sodium [Moles/Vol] 139 mmol/L 136-145 [facility] Sodium level 139 mmol/L 136-145 [facility] Urea nitrogen [Mass/Vol]Orde red By: Gabby Sutherland on 07-27-2024 Serum or plasma urea nitrogen measurement (mass/volume) 46 mg/dL High 01-18 [facility] White blood cell (WBC) count Ordered By: Gabby Sutherland on 07-27-2024 WBC (Bld) [#/Vol] 9.7 10*3/uL 4.4-11.0 [facility] White blood cell (WBC) count 9.7 K/mm3 4.4-11.0 [facility] 12 Lead EKGon 07-26-2024 12 Lead EKG Normal [facility] Basic Metabolic Profile (BMP )on 07-26-2024 BUN/CRE 13.0 RATIO Normal 10-20 [facility] Comment on above: Performed By: #### L 100.0100, L500.2500 ####[facility] [address] [place], [address] CA,Total 9.0 mg/dL Normal 8.5-10.1 [facility] Comment on above: Performed By: #### L 100.0100, L500.2500 ####[facility] [address] [place], [address] Chloride [Moles/Vol] 105 mmol/L Normal 98-107 [facility] Comment on above: Performed By: #### L 100.0100, L500.2500 ####[facility] [address] [place], [address] CO2 [Moles/Vol] 25.0 mmol/L Normal 21.0-32.0 [facility] Comment on above: Performed By: #### L 100.0100, L500.2500 ####[facility] [address] [place], [address] Creatinine [Mass/Vol] 3.31 mg/dL High 0.55-1.02 [facility] Comment on above: Result Comment: The validity of the calculated GFR GFRAA in patients over70 years has not been determined. Clinical correlation isessential. Performed By: #### L 100.0100, L500.2500 ####[facility] [address] [place], [address] ECRCL 14.05 ml/min Normal [facility] Comment on above: Performed By: #### L 100.0100, L500.2500 ####[facility] [address] [place], [address] EST GFR - AA 18 mL/min Low >60 [facility] Comment on above: Result Comment: Afri can Afghan GFR Calc Performed By: #### L 100.0100, L500.2500 ####[facility] [address] [place], [address] GAP 7 Normal 5-15 [facility] Comment on above: Performed By: #### L 100.0100, L500.2500 ####[facility] [address] [place], [address] GFR/1.73 sq M.predicted among non-blacks MDRD (S/P/Bld) [Vol rate/Area] 15 mL/min/{1.73_m2} Low >60 [facility] Comment on above: Result Comment: Non- GFR Calc Performed By: #### L 100.0100, L500.2500 ####[facility] [address] [place], [address] Glucose [Mass/Vol] 87 mg/dL Normal 74-106 [facility] Comment on above: Performed By: #### L 100.0100, L500.2500 ####[facility] [address] [place], [address] Potassium [Moles/Vol] 4.2 mmol/L Normal 3.5-5.1 [facility] Comment on above: Result Comment: Mode rate Hemolysis, Result may be falsely increased. Performed By: #### L 100.0100, L500.2500 ####[facility] [address] [place], [address] Sodium [Moles/Vol] 137 mmol/L Normal 136-145 [facility] Comment on above: Performed By: #### L 100.0100, L500.2500 ####[facility] [address] [place], [address] Urea nitrogen [Mass/Vol] 43 mg/dL High 7-18 [facility] Comment on above: Performed By: #### L 100.0100, L500.2500 ####[facility] [address] [place], [address] CBC W/Diff, Automatedon -08 06-2024 Absolute Lymph 1.50 X10 3/uL Normal 0.83-4.51 [facility] Comment on above: Order Comment: REDRA W. PREVIOUS SPECIMEN REJECTED DUE TOCLOTTED. 07/26/24636 Mario R Sousa. Performed By: #### L 100.0100 ####[facility] [address] [place], [address] Absolute Neut 8.4 X10 3/uL High 2.0-7.7 [facility] Comment on above: Order Comment: REDRA W. PREVIOUS SPECIMEN REJECTED DUE TOCLOTTED. 07/26/24636 Mario R Sousa. Performed By: #### L 100.0100 ####[facility] [address] [place], [address] Basophils/100 WBC (Bld) 0.3 % Normal 0-1 [facility] Comment on above: Order Comment: REDRA W. PREVIOUS SPECIMEN REJECTED DUE TOCLOTTED. 07/26/24636 Mario R Sousa. Performed By: #### L 100.0100 ####[facility] [address] [place], [address] Eosinophils/100 WBC (Bld) 3.4 % Normal 0-5 [facility] Comment on above: Order Comment: REDRA W. PREVIOUS SPECIMEN REJECTED DUE TOCLOTTED. 07/26/2437 Mario R Sousa. Performed By: #### L 100.0100 ####[facility] [address] [place], [address] Erythrocyte distribution width (RBC) [Ratio] 13.3 % Normal 11.6-14.6 [facility] Comment on above: Order Comment: REDRA W. PREVIOUS SPECIMEN REJECTED DUE TOCLOTTED. 07/26/24 Mario R Sousa. Performed By: #### L 100.0100 ####[facility] [address] [place], [address] Hematocrit (Bld) [Volume fraction] 25.8 % Low 37-47 [facility] Comment on above: Order Comment: REDRA W. PREVIOUS SPECIMEN REJECTED DUE TOCLOTTED. 07/26/24 Mario R Sousa. Performed By: #### L 100.0100 ####[facility] [address] [place], [address] Hemoglobin (Bld) [Mass/Vol] 8.2 g/dL Low 12.0-15.0 [facility] Comment on above: Order Comment: REDRA W. PREVIOUS SPECIMEN REJECTED DUE TOCLOTTED. 07/26/24 Mario R Sousa. Performed By: #### L 100.0100 ####[facility] [address] [place], [address] IG% 0.900 Normal 0.0-0.9 [facility] Comment on above: Order Comment: REDRA W. PREVIOUS SPECIMEN REJECTED DUE TOCLOTTED. 07/26/24 Mario R Sousa. Result Comment: IG% - Immature Granulocytes (promyelocytes, myelocytes andmetamyelocytes) > 1% indicates that a LEFT SHIFT is Present. Performed By: #### L 100.0100 ####[facility] [address] [place], [address] Lymphocytes/100 WBC (Bld) 13.4 % Low 19-41 [facility] Comment on above: Order Comment: REDRA W. PREVIOUS SPECIMEN REJECTED DUE TOCLOTTED. 07/26/24636 Mario R Sousa. Performed By: #### L 100.0100 ####[facility] [address] [place], [address] MCH (RBC) [Entitic mass] 30.6 pg Normal 27.0-32.0 [facility] Comment on above: Order Comment: REDRA W. PREVIOUS SPECIMEN REJECTED DUE TOCLOTTED. 07/26/24636 Mario R Sousa. Performed By: #### L 100.0100 ####[facility] [address] [place], [address] MCHC (RBC) [Mass/Vol] 31.8 g/dL Low 32-36 [facility] Comment on above: Order Comment: REDRA W. PREVIOUS SPECIMEN REJECTED DUE TOCLOTTED. 07/26/24636 Mario R Sousa. Performed By: #### L 100.0100 ####[facility] [address] [place], [address] MCV (RBC) [Entitic vol] 96.3 fL Normal 81-99 [facility] Comment on above: Order Comment: REDRA W. PREVIOUS SPECIMEN REJECTED DUE TOCLOTTED. 07/26/24636 Mario R Sousa. Performed By: #### L 100.0100 ####[facility] [address] [place], [address] Monocytes/100 WBC (Bld) 7.2 % Normal 0-10 [facility] Comment on above: Order Comment: REDRA W. PREVIOUS SPECIMEN REJECTED DUE TOCLOTTED. 07/26/24636 Mario R Sousa. Performed By: #### L 100.0100 ####[facility] [address] [place], [address] Neutrophils/100 WBC (Bld) 74.8 % High 47-70 [facility] Comment on above: Order Comment: REDRA W. PREVIOUS SPECIMEN REJECTED DUE TOCLOTTED. 07/26/24636 Mario R Sousa. Performed By: #### L 100.0100 ####[facility] [address] [place], [address] Nucleated RBC (Bld) [#/Vol] 0 10*3/uL Normal 0-5 [facility] Comment on above: Order Comment: REDRA W. PREVIOUS SPECIMEN REJECTED DUE TOCLOTTED. 07/26/24636 Mario R Sousa. Performed By: #### L 100.0100 ####[facility] [address] [place], [address] Platelet mean volume (Bld) [Entitic vol] 9.6 fL Normal 6.2-12.0 [facility] Comment on above: Order Comment: REDRA W. PREVIOUS SPECIMEN REJECTED DUE TOCLOTTED. 07/26/24636 Mario R Sousa. Performed By: #### L 100.0100 ####[facility] [address] [place], [address] Platelets (Bld) [#/Vol] 154 10*3/uL Normal 150-450 [facility] Comment on above: Order Comment: REDRA W. PREVIOUS SPECIMEN REJECTED DUE TOCLOTTED. 07/26/24636 Mario R Sousa. Performed By: #### L 100.0100 ####[facility] [address] [place], [address] RBC (Bld) [#/Vol] 2.68 10*6/uL Low 4.2-5.4 [facility] Comment on above: Order Comment: REDRA W. PREVIOUS SPECIMEN REJECTED DUE TOCLOTTED. 07/26/24636 Mario R Sousa. Performed By: #### L 100.0100 ####[facility] [address] [place], [address] RDW SD 46.6 fl High 35.1-43.9 [facility] Comment on above: Order Comment: REDRA W. PREVIOUS SPECIMEN REJECTED DUE TOCLOTTED. 07/26/24636 Mario R Sousa. Performed By: #### L 100.0100 ####[facility] [address] [place], [address] WBC (Bld) [#/Vol] 11.2 10*3/uL High 4.4-11.0 [facility] Comment on above: Order Comment: REDRA W. PREVIOUS SPECIMEN REJECTED DUE TOCLOTTED. 07/26/24636 Mario R Sousa. Performed By: #### L 100.0100 ####[facility] [address] [place], [address] Absolute Neut Normal 2.0-7.7 [facility] Comment on above: Result Comment: This specimen has been REJECTED due to Laboratory criteria:Clotted.TPARSONS has been notified of need of recollection.07/26/24636 Mario R Sousa Performed By: #### L 100.0100, L500.2500 ####[facility] [address] [place], [address] HCT Normal 37-47 [facility] Comment on above: Result Comment: This specimen has been REJECTED due to Laboratory criteria:Clotted.TPARSONS has been notified of need of recollection.07/26/24636 Mario R Sousa Performed By: #### L 100.0100, L500.2500 ####[facility] [address] [place], [address] HGB Normal 12.0-15.0 [facility] Comment on above: Result Comment: This specimen has been REJECTED due to Laboratory criteria:Clotted.TPARSONS has been notified of need of recollection.07/26/24636 Mario R Sousa Performed By: #### L 100.0100, L500.2500 ####[facility] [address] [place], [address] MCH Normal 27.0-32.0 [facility] Comment on above: Result Comment: This specimen has been REJECTED due to Laboratory criteria:Clotted.TPARSONS has been notified of need of recollection.07/26/24636 Mario R Sousa Performed By: #### L 100.0100, L500.2500 ####[facility] [address] [facility] [address] MCHC Normal 32-36 [facility] Comment on above: Result Comment: This specimen has been REJECTED due to Laboratory criteria:Clotted.TPARSONS has been notified of need of recollection.07/26/24636 Mario R Sousa Performed By: #### L 100.0100, L500.2500 ####[facility] [address] [facility] [address] MCV Normal 81-99 [facility] Comment on above: Result Comment: This specimen has been REJECTED due to Laboratory criteria:Clotted.TPARSONS has been notified of need of recollection.07/26/24636 Mario R Sousa Performed By: #### L 100.0100, L500.2500 ####[facility] [address] [place], [address] NEUT% Normal 47-70 [facility] Comment on above: Result Comment: This specimen has been REJECTED due to Laboratory criteria:Clotted.TPARSONS has been notified of need of recollection.07/26/24636 Mario R Sousa Performed By: #### L 100.0100, L500.2500 ####[facility] [address] [facility] [address] PLT Normal 150-450 [facility] Comment on above: Result Comment: This specimen has been REJECTED due to Laboratory criteria:Clotted.TPARSONS has been notified of need of recollection.01/23/25 0637 Mario R Sousa Performed By: #### L 100.0100, L500.2500 ####[facility] [address] [place], [address] RBC Normal 4.2-5.4 [facility] Comment on above: Result Comment: This specimen has been REJECTED due to Laboratory criteria:Clotted.TPARSONS has been notified of need of recollection.07/26/24 Mario R Sousa Performed By: #### L 100.0100, L500.2500 ####[facility] [address] [place], [address] RDW CV Normal 11.6-14.6 [facility] Comment on above: Result Comment: This specimen has been REJECTED due to Laboratory criteria:Clotted.TPARSONS has been notified of need of recollection.07/26/24 Mario R Sousa Performed By: #### L 100.0100, L500.2500 ####[facility] [address] [place], [address] RDW SD Normal 35.1-43.9 [facility] Comment on above: Result Comment: This specimen has been REJECTED due to Laboratory criteria:Clotted.TPARSONS has been notified of need of recollection.07/26/24636 Mario R Sousa Performed By: #### L 100.0100, L500.2500 ####[facility] [address] [place], [address] WBC Normal 4.4-11.0 [facility] Comment on above: Result Comment: This specimen has been REJECTED due to Laboratory criteria:Clotted.TPARSONS has been notified of need of recollection.07/26/2437 Mario R Sousa Performed By: #### L 100.0100, L500.2500 ####[facility] [address] [place], [address] Respiratory Cultureon 2024 RESPC List Antibiotics [place] 48 Hours? Zosyn, Zithromax, Vanc List Antibiotics to be Started? Rocephin DECREASED NORMAL ROSANNE Presumptive C albicans Amount Growth Rare Normal [facility] Comment on above: Performed By: #### M 100.2000, M100.2400 ####[facility] [address] [place], [address] Basic Metabolic Profile (BMP )on 07-25-2024 BUN/CRE 18.5 RATIO Normal 10-20 [facility] Comment on above: Performed By: #### L 500.2500, L100.0100 ####[facility] [address] [place], [address] CA,Total 8.6 mg/dL Normal 8.5-10.1 [facility] Comment on above: Performed By: #### L 500.2500, L100.0100 ####[facility] [address] [place], [address] Chloride [Moles/Vol] 105 mmol/L Normal 98-107 [facility] Comment on above: Performed By: #### L 500.2500, L100.0100 ####[facility] [address] [place], [address] CO2 [Moles/Vol] 29.0 mmol/L Normal 21.0-32.0 [facility] Comment on above: Performed By: #### L 500.2500, L100.0100 ####[facility] [address] [place], [address] Creatinine [Mass/Vol] 4.01 mg/dL High 0.55-1.02 [facility] Comment on above: Result Comment: The validity of the calculated GFR GFRAA in patients over70 years has not been determined. Clinical correlation isessential. Performed By: #### L 500.2500, L100.0100 ####[facility] [address] [place], [address] ECRCL 11.59 ml/min Normal [facility] Comment on above: Performed By: #### L 500.2500, L100.0100 ####[facility] [address] [place], [address] EST GFR - AA 14 mL/min Low >60 [facility] Comment on above: Result Comment: Afri can Afghan GFR Calc Performed By: #### L 500.2500, L100.0100 ####[facility] [address] [place], [address] GAP 7 Normal 5-15 [facility] Comment on above: Performed By: #### L 500.2500, L100.0100 ####[facility] [address] [place], [address] GFR/1.73 sq M.predicted among non-blacks MDRD (S/P/Bld) [Vol rate/Area] 12 mL/min/{1.73_m2} Low >60 [facility] Comment on above: Result Comment: Non- GFR Calc Performed By: #### L 500.2500, L100.0100 ####[facility] [address] [place], [address] Glucose [Mass/Vol] 93 mg/dL Normal 74-106 [facility] Comment on above: Performed By: #### L 500.2500, L100.0100 ####[facility] [address] [place], [address] Potassium [Moles/Vol] 4.4 mmol/L Normal 3.5-5.1 [facility] Comment on above: Performed By: #### L 500.2500, L100.0100 ####[facility] [address] [place], [address] Sodium [Moles/Vol] 140 mmol/L Normal 136-145 [facility] Comment on above: Performed By: #### L 500.2500, L100.0100 ####[facility] [address] [place], [address] Urea nitrogen [Mass/Vol] 74 mg/dL High 7-18 [facility] Comment on above: Performed By: #### L 500.2500, L100.0100 ####[facility] [address] [place], [address] CBC W/Diff, Automatedon 07-05 Absolute Lymph 1.77 X10 3/uL Normal 0.83-4.51 [facility] Comment on above: Performed By: #### L 500.2500, L100.0100 ####[facility] [address], [address] Absolute Neut 16.8 X10 3/uL High 2.0-7.7 [facility] Comment on above: Performed By: #### L 500.2500, L100.0100 ####[facility] [address] [place], [address] Basophils/100 WBC (Bld) 0.2 % Normal 0-1 [facility] Comment on above: Performed By: #### L 500.2500, L100.0100 ####[facility] [address] [place], [address] Eosinophils/100 WBC (Bld) 0.6 % Normal 0-5 [facility] Comment on above: Performed By: #### L 500.2500, L100.0100 ####[facility] [address] [place], [address] Erythrocyte distribution width (RBC) [Ratio] 13.2 % Normal 11.6-14.6 [facility] Comment on above: Performed By: #### L 500.2500, L100.0100 ####[facility] [facility] [address] [place], [address] Hematocrit (Bld) [Volume fraction] 25.6 % Low 37-47 [facility] Comment on above: Performed By: #### L 500.2500, L100.0100 ####[facility] [address] [place], [address] Hemoglobin (Bld) [Mass/Vol] 8.3 g/dL Low 12.0-15.0 [facility] Comment on above: Performed By: #### L 500.2500, L100.0100 ####[facility] [address] [place], [address] IG% 0.800 Normal 0.0-0.9 [facility] Comment on above: Result Comment: IG% - Immature Granulocytes (promyelocytes, myelocytes andmetamyelocytes) > 1% indicates that a LEFT SHIFT is Present. Performed By: #### L 500.2500, L100.0100 ####[facility] [address] [place], [address] Lymphocytes/100 WBC (Bld) 8.9 % Low 19-41 [facility] Comment on above: Performed By: #### L 500.2500, L100.0100 ####[facility] [address] [place], [address] MCH (RBC) [Entitic mass] 31.3 pg Normal 27.0-32.0 [facility] Comment on above: Performed By: #### L 500.2500, L100.0100 ####[facility] [address] [place], [address] MCHC (RBC) [Mass/Vol] 32.4 g/dL Normal 32-36 [facility] Comment on above: Performed By: #### L 500.2500, L100.0100 ####[facility] [address] [place], [address] MCV (RBC) [Entitic vol] 96.6 fL Normal 81-99 [facility] Comment on above: Performed By: #### L 500.2500, L100.0100 ####[facility] [address], [address] Monocytes/100 WBC (Bld) 5.4 % Normal 0-10 [facility] Comment on above: Performed By: #### L 500.2500, L100.0100 ####[facility] [address] [place], [address] Neutrophils/100 WBC (Bld) 84.1 % High 47-70 [facility] Comment on above: Performed By: #### L 500.2500, L100.0100 ####[facility] [address] [place], [address] Nucleated RBC (Bld) [#/Vol] 0 10*3/uL Normal 0-5 [facility] Comment on above: Performed By: #### L 500.2500, L100.0100 ####[facility] [address] [place], [address] Platelet mean volume (Bld) [Entitic vol] 10.3 fL Normal 6.2-12.0 [facility] Comment on above: Performed By: #### L 500.2500, L100.0100 ####[facility] [address] [place], [address] Platelets (Bld) [#/Vol] 169 10*3/uL Normal 150-450 [facility] Comment on above: Performed By: #### L 500.2500, L100.0100 ####[facility] [address] [place], [address] RBC (Bld) [#/Vol] 2.65 10*6/uL Low 4.2-5.4 [facility] Comment on above: Performed By: #### L 500.2500, L100.0100 ####[facility] [address] [place], [address] RDW SD 47.2 fl High 35.1-43.9 [facility] Comment on above: Performed By: #### L 500.2500, L100.0100 ####[facility] [address] [place], [address] WBC (Bld) [#/Vol] 20.0 10*3/uL High 4.4-11.0 [facility] Comment on above: Performed By: #### L 500.2500, L100.0100 ####[facility] [address] [place], [address] Ferritinon 07-25-2024 Ferritin [Mass/Vol] 2756 ng/mL High 8-252 [facility] Comment on above: Performed By: #### L 503.6550, L503.6030 ####[facility] [address] [place], [address] Ferritin measurementOrdered By: Gabby Sutherland on 07-25-2024 Ferritin measurement 2756 ng/mL High 8-252 [facility] Gram Stainon 07-25-2024 GS List Antibiotics [place] 48 Hours? Zosyn, Zithromax, Vanc List Antibiotics to be Started? Rocephin Acceptable Specimen? Yes (<25 Epithelial cells per/lpf) Gram Stain 2+ White Blood Cells No Epithelial cells No organisms seen Normal [facility] Comment on above: Performed By: #### M 100.2000, M100.2400 ####[facility] [address] [place], [address] Iron (Unsp spec) [Mass/Mass] Ordered By: Gabby Sutherland on 07-25-2024 Iron measurement (mass/mass) 132 ug/dL 50-170 [facility] Iron measurement (mass/mass) Ordered By: Gabby Sutherland on 07-25-2024 Iron (Unsp spec) [Mass/Mass] 132 ug/dL 50-170 [facility] Iron saturation [Mass fracti on]Ordered By: Gabby Sutherland on 07-25-2024 Serum or plasma iron saturation measurement (mass fraction) 92.3 % High 15.0-55.0 [facility] Iron+Iron Binding Capacityon 07-25-2024 Iron [Mass/Vol] 132 ug/dL Normal 50-170 [facility] Comment on above: Performed By: #### L 503.6550, L503.6030 ####[facility] [address] [place], [address] IRON SATURATION 92.3 High 15.0-55.0 [facility] Comment on above: Performed By: #### L 503.6550, L503.6030 ####[facility] [address] [place], [address] TIBC 143 ug/dL Low 250-450 [facility] Comment on above: Performed By: #### L 503.6550, L503.6030 ####[facility] [address] [place], [address] Serum or plasma iron saturat ion measurement (mass fraction)Ordered By: Gabby Sutherland on 07-25-2024 Iron saturation [Mass fraction] 92.3 % High 15.0-55.0 [facility] Stool Occult Blood iFOBon STOB Negative Normal [facility] Comment on above: Performed By: #### M 100.7900 ####[facility] [address] [place], [address] Stool gastrointestinal hemog lobin detection by immunologic methodOrdered By: Gabby Sutherland on 07-25-2024 Lower GI hemoglobin IA Ql (Stl) [facility] TIBCOrdered By: Gabby ramos 07-25-2024 TIBC 143 ug/dL Low 250-450 [facility] Basic Metabolic Profile (BMP )on 07-24-2024 BUN/CRE 14.9 RATIO Normal 10-20 [facility] Comment on above: Performed By: #### L 100.0100, L500.2500 ####[facility] [address] [place], [address] CA,Total 9.3 mg/dL Normal 8.5-10.1 [facility] Comment on above: Performed By: #### L 100.0100, L500.2500 ####[facility] [address] [place], [address] Chloride [Moles/Vol] 104 mmol/L Normal 98-107 [facility] Comment on above: Performed By: #### L 100.0100, L500.2500 ####[facility] [address] [place], [address] CO2 [Moles/Vol] 28.0 mmol/L Normal 21.0-32.0 [facility] Comment on above: Performed By: #### L 100.0100, L500.2500 ####[facility] [address] [place], [address] Creatinine [Mass/Vol] 3.03 mg/dL High 0.55-1.02 [facility] Comment on above: Result Comment: The validity of the calculated GFR GFRAA in patients over70 years has not been determined. Clinical correlation isessential. Performed By: #### L 100.0100, L500.2500 ####[facility] [address] [place], [address] ECRCL 15.34 ml/min Normal [facility] Comment on above: Performed By: #### L 100.0100, L500.2500 ####[facility] [address] [place], [address] EST GFR - AA 20 mL/min Low >60 [facility] Comment on above: Result Comment: Afri can Afghan GFR Calc Performed By: #### L 100.0100, L500.2500 ####[facility] [address] [place], [address] GAP 7 Normal 5-15 [facility] Comment on above: Performed By: #### L 100.0100, L500.2500 ####[facility] [address] [place], [address] GFR/1.73 sq M.predicted among non-blacks MDRD (S/P/Bld) [Vol rate/Area] 16 mL/min/{1.73_m2} Low >60 [facility] Comment on above: Result Comment: Non- GFR Calc Performed By: #### L 100.0100, L500.2500 ####[facility] [address] [place], [address] Glucose [Mass/Vol] 124 mg/dL High 74-106 [facility] Comment on above: Result Comment: Fast ing Glucose result from 100 to 125 mg/dLsuggests IMPAIRED HOMEOSTASIS per A.D.A. criteria. Performed By: #### L 100.0100, L500.2500 ####[facility] [address] [place], [address] Potassium [Moles/Vol] 5.5 mmol/L High 3.5-5.1 [facility] Comment on above: Performed By: #### L 100.0100, L500.2500 ####[facility] [address] [place], [address] Sodium [Moles/Vol] 139 mmol/L Normal 136-145 [facility] Comment on above: Performed By: #### L 100.0100, L500.2500 ####[facility] [address] [place], [address] Urea nitrogen [Mass/Vol] 45 mg/dL High 7-18 [facility] Comment on above: Performed By: #### L 100.0100, L500.2500 ####[facility] [address] [place], [address] Blood manual differential co mment interpretation (narrative result)Ordered By: Gabby Sutherland on 07-24-2024 Manual differential comment Darnell (Bld) [Interp] COMMENT [facility] CBC W/Diff, Automatedon - PATH REV Reviewed Normal [facility] Comment on above: Result Comment: Neut rophilic leukocytosis.Normocytic anemia.Clinical correlation necessary.Patrice Quinones M.D. 07/24/24 AMENDED REPORT 07/24/24 1321 PATH REV previously reported as: Lulu minor Performed By: #### L 100.0100, L500.2500 ####[facility] [address] [place], [address] Consultation - Infectious Dx on 07-24-2024 Consultation - Infectious Dx Normal [facility] Consultation - Nephrologyon 07-24-2024 Consultation - Nephrology Normal [facility] Gram stainOrdered By: Solo Perry on 07-24-2024 Microscopic observation Gram stain Nom (Unsp spec) [facility] M R Staph Aureus DNA by PCRo n 07-24-2024 MRSA DNA ASSAY Negative Normal Negative [facility] Comment on above: Performed By: #### L 8200.1000 ####[facility] [address] [place], [place], [address] Manual differential comment Darnell (Bld) [Interp]Ordered By: Gabby Sutherland on 07-24-2024 Blood manual differential comment interpretation (narrative result) COMMENT [facility] Microbial respiratory cultur eOrdered By: Solo Perry on 07-24-2024 Microorganism identified Cx Nom (Unsp spec) Presumptive C albicans Abnormal [facility] Microorganism identified Cx Nom (Unsp spec)Ordered By: Solo Perry on 07-24-2024 Microbial respiratory culture Presumptive C albicans Abnormal [facility] Pathologist review Darnell (Unsp spec) [Interp]Ordered By: Gabby Sutherland on 07-24-2024 Review by pathologist Reviewed [facility] Review by pathologistOrdered By: Gabby Sutherland on 07-24-2024 Pathologist review Darnell (Unsp spec) [Interp] Reviewed [facility] 12 Lead EKGon 07-23-2024 12 Lead EKG Normal [facility] 12 Lead EKG Normal [facility] BNP (brain natriuretic pepti de measurement)Ordered By: Radu Sullivan on 07-23-2024 Natriuretic peptide B (Bld) [Mass/Vol] 90.6 pg/mL 0-100 [facility] BNP (brain natriuretic peptide measurement) 90.6 pg/mL 0-100 [facility] BNP,B-Type NATRIURETIC PEPTI Arian 07-23-2024 Natriuretic peptide B (Bld) [Mass/Vol] 90.6 pg/mL Normal 0-100 [facility] Comment on above: Performed By: #### L 503.6609 ####[facility] [address] [place], [address] Basic Metabolic Profile (BMP )on 07-23-2024 BUN/CRE 15.5 RATIO Normal 10-20 [facility] Comment on above: Order Comment: 'TROP ' Serial specimen #1, #2 or #3: 1 Performed By: #### L 500.2500, L100.0100, L501.4020 ####[facility] [address] [place], [address] CA,Total 9.4 mg/dL Normal 8.5-10.1 [facility] Comment on above: Order Comment: 'TROP ' Serial specimen #1, #2 or #3: 1 Performed By: #### L 500.2500, L100.0100, L501.4020 ####[facility] [address] [place], [address] Chloride [Moles/Vol] 106 mmol/L Normal 98-107 [facility] Comment on above: Order Comment: 'TROP ' Serial specimen #1, #2 or #3: 1 Performed By: #### L 500.2500, L100.0100, L501.4020 ####[facility] [address] [place], [address] CO2 [Moles/Vol] 27.0 mmol/L Normal 21.0-32.0 [facility] Comment on above: Order Comment: 'TROP ' Serial specimen #1, #2 or #3: 1 Performed By: #### L 500.2500, L100.0100, L501.4020 ####[facility] [address] [place], [address] Creatinine [Mass/Vol] 3.35 mg/dL High 0.55-1.02 [facility] Comment on above: Order Comment: 'TROP ' Serial specimen #1, #2 or #3: 1 Result Comment: The validity of the calculated GFR GFRAA in patients over70 years has not been determined. Clinical correlation isessential. Performed By: #### L 500.2500, L100.0100, L501.4020 ####[facility] [address] [place], [address] ECRCL 15.57 ml/min Normal [facility] Comment on above: Order Comment: 'TROP ' Serial specimen #1, #2 or #3: 1 Performed By: #### L 500.2500, L100.0100, L501.4020 ####[facility] [address] [place], [address] EST GFR - AA 18 mL/min Low >60 [facility] Comment on above: Order Comment: 'TROP ' Serial specimen #1, #2 or #3: 1 Result Comment: Afri can Afghan GFR Calc Performed By: #### L 500.2500, L100.0100, L501.4020 ####[facility] [address] [place], [address] GAP 7 Normal 5-15 [facility] Comment on above: Order Comment: 'TROP ' Serial specimen #1, #2 or #3: 1 Performed By: #### L 500.2500, L100.0100, L501.4020 ####[facility] [address] [place], [address] GFR/1.73 sq M.predicted among non-blacks MDRD (S/P/Bld) [Vol rate/Area] 15 mL/min/{1.73_m2} Low >60 [facility] Comment on above: Order Comment: 'TROP ' Serial specimen #1, #2 or #3: 1 Result Comment: Non- GFR Calc Performed By: #### L 500.2500, L100.0100, L501.4020 ####[facility] [address] [place], [address] Glucose [Mass/Vol] 105 mg/dL Normal 74-106 [facility] Comment on above: Order Comment: 'TROP ' Serial specimen #1, #2 or #3: 1 Result Comment: Fast ing Glucose result from 100 to 125 mg/dLsuggests IMPAIRED HOMEOSTASIS per A.D.A. criteria. Performed By: #### L 500.2500, L100.0100, L501.4020 ####[facility] [address] [place], [address] Potassium [Moles/Vol] 5.0 mmol/L Normal 3.5-5.1 [facility] Comment on above: Order Comment: 'TROP ' Serial specimen #1, #2 or #3: 1 Performed By: #### L 500.2500, L100.0100, L501.4020 ####[facility] [address] [place], [address] Sodium [Moles/Vol] 140 mmol/L Normal 136-145 [facility] Comment on above: Order Comment: 'TROP ' Serial specimen #1, #2 or #3: 1 Performed By: #### L 500.2500, L100.0100, L501.4020 ####[facility] [address] [place], [address] Urea nitrogen [Mass/Vol] 52 mg/dL High 7-18 [facility] Comment on above: Order Comment: 'TROP ' Serial specimen #1, #2 or #3: 1 Performed By: #### L 500.2500, L100.0100, L501.4020 ####[facility] [address] [place], [address] Bilirubin Test strip Ql (U)O rdered By: Radu Sullivan on 07-23-2024 Bilirubin Ql (U) Negative Negative [facility] Blood cultureOrdered By: Shaq Sullivan on 07-23-2024 Bacteria identified Cx Nom (Bld) No growth in 5 days. [facility] Blood culture No growth in 5 days. [facility] CBC W/Diff, Automatedon 07-05 SMEAR COMMENT SCANNED Normal [facility] Comment on above: Result Comment: NEUT ROPHILIA NOTED Performed By: #### L 500.2500, L100.0100, L501.4020 ####[facility] [address] [place], [place], [id number] CTA Chest W/WO Contraston CTA Chest W/WO Contrast Normal [facility] Chest 1 View (Portable)on Chest 1 View (Portable) Normal [facility] Clarity (U)Ordered By: Radu Sullivan on 07-23-2024 Urine clarity Sl. Cloudy Clear [facility] Color (U)Ordered By: Radu peralta on 07-23-2024 Urine color determination Yellow Yellow [facility] D-Dimer Quantitative (DVT/PE )on 07-23-2024 D-DIMER QUANT 1.55 FEU/ug/m Invalid Interpretation Code 0.27-0.49 [facility] Comment on above: Result Comment: D-Di lucía ELEVATED (>0.49): Additional studies and clinicalassessments are indicated to conclude diagnosis of:Deep Vein Thrombosis (DVT) or Pulmonary Embolism (PE)CRITICAL VALUE CALLED TO EMMA FARRELL (ER)07/23/24 0918 Mich Castrejon.RESULTS READ BACK BY SAME. Performed By: #### L 300.8000 ####[facility] [address] [place], [place], [address] D-dimer measurement for deep venous thrombosisOrdered By: Radu Sullivan on 07-23-2024 D-dimer measurement for deep venous thrombosis 1.55 FEU/ug/m High 0.27-0.49 [facility] Emergency Department Summary on 07-23-2024 Emergency Department Summary Normal [facility] H AND P Exam - Hospitaliston 07-23-2024 H&P Exam - Hospitalist Normal [facility] Influenza virus A and B and SARS-CoV-2 (COVID-19) and Respiratory syncytial virus RNAOrdered By: Radu Sullivan on 07-23-2024 SARS-CoV-2 (COVID-19) RNA FOZIA+probe Ql (Unsp spec) [facility] Ketones Test strip Ql (U)Ord ered By: Radu Sullivan on 07-23-2024 Ketones Ql (U) Negative Negative [facility] L501.4020on 07-23-2024 TROPONIN-I HS 11 pg/mL Normal 3.0-54.0 [facility] Comment on above: Order Comment: 'TROP ' Serial specimen #1, #2 or #3: 1 Result Comment: Louisa chavarria Note: New Test Units and Gender Specific Reference Ranges. For more information see Policy Stat Procedure [facility] High Sensitivity Troponin (TNIH) and attachments. Performed By: #### L 500.2500, L100.0100, L501.4020 ####[facility] [address] [place], [address] Lactic Acidon 07-23-2024 Lactate [Moles/Vol] 1.3 mmol/L Normal 0.4-1.9 [facility] Comment on above: Performed By: #### L 503.6005 ####[facility] [address] [place], [address] Lactate [Moles/Vol] 2.0 mmol/L Normal 0.4-1.9 [facility] Comment on above: Order Comment: Y Result Comment: Crit ical Result(s) Called at: 16:17:34 07/23/2024 by: Ran to Rachel Decker. Results read back by same. Performed By: #### L 503.6005 ####[facility] [address] [place], [address] Lactic acid measurementOrder ed By: Gabby Sutherland on 07-23-2024 Lactic acid measurement 1.3 mmol/L 0.4-2.0 [facility] Legionella Antigen Urineon 0 07-23-2024 LEGU Normal [facility] Comment on above: Performed By: #### M 300.4600, M300.4500 ####[facility] [address], [address] M100.678on 07-23-2024 M100.678 Pending SARS-CoV-2 (COVID 19) Negative INFLUENZA A Negative INFLUENZA B Negative RSV PCR Negative Normal [facility] Comment on above: Performed By: #### M 100.678 ####[facility] [address] [facility] [place], [address] MRSA detection PCROrdered By : Gabby Sutherland on 07-23-2024 MRSA detection PCR Negative Negative [facility] Microscopic analysis of urin e for red blood cells (RBC)Ordered By: Radu Sullivan on 07-23-2024 Microscopic analysis of urine for red blood cells (RBC) 0-5 SEEN /hpf 5-10 [facility] Mucus LM Ql (Urine sed)Order ed By: Radu Sullivan on 07-23-2024 Mucus Ql (Urine sed) 0 SEEN /hpf [facility] Nitrite Test strip Ql (U)Ord ered By: Radu Sullivan on 07-23-2024 Nitrite Ql (U) Negative Negative [facility] Protein Test strip Ql (U)Ord ered By: Radu Sullivan on 07-23-2024 Protein Ql (U) 30 mg/dl High Negative [facility] Urine protein assay by test strip, semi-quantitative 30 mg/dl High Negative [facility] Specific gravity (U) [Rel de nsity]Ordered By: Radu Sulilvan on 07-23-2024 Urine specific gravity measurement 1.010 1.002-1.030 [facility] Squamous epithelial cells de tection in urine sediment by light microscopyOrdered By: Radu Sullivan on 07-23-2024 Epithelial cells.squamous LM Ql (Urine sed) 0-5 SEEN /hpf 5-10 [facility] Strep pneumoniae Antig(UR,CS F)on 07-23-2024 STPAG Normal [facility] Comment on above: Performed By: #### M 300.4600, M300.4500 ####[facility] [address] [place], [address] Troponin IOrdered By: Radu león on 07-23-2024 Troponin I 11 pg/mL 3.0-54.0 [facility] Troponin I 11 pg/mL 3.0-54.0 [facility] Urinalysis, Completeon 07-23 EPI,SQUAMOUS 0-5 SEEN Normal 5-10 [facility] Comment on above: Order Comment: WILMAR CTOR TO SPECIFY Performed By: #### L 400.0001 ####[facility] [address] [place], [address] RBC 0-5 SEEN Normal 0-5 [facility] Comment on above: Order Comment: WILMAR CTOR TO SPECIFY Performed By: #### L 400.0001 ####[facility] [address] [place], [address] BACTERIA 0 SEEN Normal None Seen [facility] Comment on above: Order Comment: WILMAR CTOR TO SPECIFY Performed By: #### L 400.0001 ####[facility] [address] [place], [address] Mucus Ql (Urine sed) 0 SEEN Normal [facility] Comment on above: Order Comment: WILMAR CTOR TO SPECIFY Performed By: #### L 400.0001 ####[facility] [address] [place], [address] WBC 0 SEEN Normal 0-5 [facility] Comment on above: Order Comment: WILMAR CTOR TO SPECIFY Performed By: #### L 400.0001 ####[facility] [address] [place], [address] Urine Legionella pneumophila antigen detectionOrdered By: Gabby Sutherland on 07-23-2024 L. pneumophila Ag Ql (U) [facility] Urine blood detectionOrdered By: Radu Sullivan on 07-23-2024 Urine blood detection 50 /ul High Negative [facility] Urine clarityOrdered By: Shaq Sullivan on 07-23-2024 Clarity (U) Sl. Cloudy Clear [facility] Urine color determinationOrd ered By: Radu Sullivan on 07-23-2024 Color (U) Yellow Yellow [facility] Urine glucose detectionOrder ed By: Radu Sullivan on 07-23-2024 Glucose Ql (U) Normal mg/dl Normal [facility] Urine glucose detection Normal mg/dl Normal [facility] Urine leukocyte esterase det ection by dipstickOrdered By: Radu Sullivan on 07-23-2024 Leukocyte esterase Test strip Ql (U) Negative Negative [facility] Urine pHOrdered By: Radu perez on 07-23-2024 pH (U) 7.0 [pH] 5.0 - 8.0 [facility] Urine sediment bacteria coun t by microscopy (number/high power field)Ordered By: Radu Sullivan on 07-23-2024 Bacteria LM.HPF (Urine sed) [#/Area] 0 /[HPF] None Seen [facility] Urine specific gravity measu rementOrdered By: Radu Sullivan on 07-23-2024 Specific gravity (U) [Rel density] 1.010 1.002-1.030 [facility] Urine total bilirubin detect ion by test stripOrdered By: Radu Sullivan on 07-23-2024 Urine total bilirubin detection by test strip Negative Negative [facility] Urine urobilinogen measureme ntOrdered By: Radu Sullivan on 07-23-2024 Urobilinogen Ql (U) Normal mg/dl Normal [facility] White blood cell countOrdere d By: Radu Sullivan on 07-23-2024 White blood cell count 0 SEEN /hpf 0-5 [facility] White blood cell count 0 SEEN /hpf W [facility] pH (U)Ordered By: Radu padron on 07-23-2024 Urine pH 7.0 5.0 - 8.0 [facility] CNOVon 07-18-2024 CNOV Office Visit (INTMWS ) SNEHA CARDENAS ([id number]) 1955 F Date Time Provider Department 07/18/24 11:20 AM JULIO DRAPER INTMWS During your visit today, we recorded the following information about you: Temperature Pulse Respiration Blood pressure 98.4 degrees 88/minute 1/minute 126/74 Julio Draper MD 07/18/2024 12:50 PM Signed This note was created using True [employer]. Subjective Patient presents with: Hospital F/U Sneha [...] tablet by mouth two times a day. bhbesqxncv-rhdmdnii-ft rmoterol (BREZTRI) 160-9-4.8 mcg/actuation HFA aerosol inhaler [...] is a (more content not included)... Normal [facility] 07-17-2024 [facility] Telephone (INTMWS) SNEHA CARDENAS ([id number]) 1955 F Date Time Provider Department 07/17/24 JULIO DRAPER INTWS During your visit today, we recorded the following information about you: Rachel Woodard RN 07/17/2024 2:47 PM Signed Geovany PT with [facility] called in and reports he will [...] Visit: Home Health Point of Care Results [1322] Prescriptions as of 07/17/2024 - isosorbide mononitrate [...] by mouth two times a day. - gnsrbzrgjq-mpoqaigj-rg rmoterol (BREZTRI) 160-9-4.8 mcg/actuation HFA aerosol inhaler [...] renal diseas (more content not included)... Normal [facility] CNPNon 07-12-2024 CNPN Telephone (INTMWS) SNEHA CARDENAS ([id number]) 1955 F Date Time Provider Department 07/12/24 JULIO DRAPER INTMWS During your visit today, we recorded the following information about you: Sarah Peña, RN 07/12/2024 2:53 PM Signed Michele nurse with [facility] calling in as pt was discharged from [facility] yesterday for a COPD exacerbation secondary to pneumonia and RSV+. Michele saw patient today for start of care. [...] she does, it is a thick yellow. Michele wants to keep a close eye on pt so nursing will see her 2x per week for 1 week then 1x per week for 2 weeks. Julio Draper MD 07/13/2024 10:05 AM Signed I agree with POC. Rachel Woodard RN 07/13/2024 10:17 AM Signed Called and left a detailed voicemail notifying Michele nurse with [facility] of providers message. Clinic phone number was left in case she had any questions. Rachel Woodard RN Allergies As of Date: 07/12/2024 [...] by mouth two times a day. - gaijdmkusn-rqyyoyij-bk rmoterol (BREZTRI) 160-9-4.8 mcg/actuation HFA aerosol inhaler [...] failure ( (more content not included)... Normal [facility] Basic Metabolic Profile (BMP )on 07-11-2024 BUN/CRE 17.2 RATIO Normal 10-20 [facility] Comment on above: Performed By: #### L 500.2500, L100.0500 ####[facility] [address] [facility] [address] [place], [address] CA,Total 9.0 mg/dL Normal 8.5-10.1 [facility] Comment on above: Performed By: #### L 500.2500, L100.0500 ####[facility] [address] [place], [address] Chloride [Moles/Vol] 103 mmol/L Normal 98-107 [facility] Comment on above: Performed By: #### L 500.2500, L100.0500 ####[facility] [address] [place], [address] CO2 [Moles/Vol] 26.0 mmol/L Normal 21.0-32.0 [facility] Comment on above: Performed By: #### L 500.2500, L100.0500 ####[facility] [address] [place], [address] Creatinine [Mass/Vol] 3.90 mg/dL High 0.55-1.02 [facility] Comment on above: Result Comment: The validity of the calculated GFR GFRAA in patients over70 years has not been determined. Clinical correlation isessential. Performed By: #### L 500.2500, L100.0500 ####[facility] [address] [place], [address] ECRCL 11.92 ml/min Normal [facility] Comment on above: Performed By: #### L 500.2500, L100.0500 ####[facility] [address] [place], [address] EST GFR - AA 15 mL/min Low >60 [facility] Comment on above: Result Comment: Afri can Afghan GFR Calc Performed By: #### L 500.2500, L100.0500 ####[facility] [address] [place], [address] GAP 7 Normal 5-15 [facility] Comment on above: Performed By: #### L 500.2500, L100.0500 ####[facility] [address] [place], [address] GFR/1.73 sq M.predicted among non-blacks MDRD (S/P/Bld) [Vol rate/Area] 12 mL/min/{1.73_m2} Low >60 [facility] Comment on above: Result Comment: Non- GFR Calc Performed By: #### L 500.2500, L100.0500 ####[facility] [address] [place], [address] Glucose [Mass/Vol] 90 mg/dL Normal 74-106 [facility] Comment on above: Performed By: #### L 500.2500, L100.0500 ####[facility] [address] [place], [address] Potassium [Moles/Vol] 4.4 mmol/L Normal 3.5-5.1 [facility] Comment on above: Performed By: #### L 500.2500, L100.0500 ####[facility] [address] [place], [address] Sodium [Moles/Vol] 136 mmol/L Normal 136-145 [facility] Comment on above: Performed By: #### L 500.2500, L100.0500 ####[facility] [address] [place], [address] Urea nitrogen [Mass/Vol] 67 mg/dL High 7-18 [facility] Comment on above: Performed By: #### L 500.2500, L100.0500 ####[facility] [address] [place], [address] Blood urea nitrogen (BUN)/cr eatinine ratioOrdered By: Diana Santillan on 07-11-2024 Blood urea nitrogen (BUN)/creatinine ratio 17.2 RATIO 10-20 [facility] CBC-Complete Blood Cnt No Di ffon 07-11-2024 Erythrocyte distribution width (RBC) [Ratio] 13.2 % Normal 11.6-14.6 [facility] Comment on above: Performed By: #### L 500.2500, L100.0500 ####[facility] [address] [place], [address] Hematocrit (Bld) [Volume fraction] 33.2 % Low 37-47 [facility] Comment on above: Performed By: #### L 500.2500, L100.0500 ####[facility] [address] [place], [address] Hemoglobin (Bld) [Mass/Vol] 10.5 g/dL Low 12.0-15.0 [facility] Comment on above: Performed By: #### L 500.2500, L100.0500 ####[facility] [address] [place], [address] MCH (RBC) [Entitic mass] 30.0 pg Normal 27.0-32.0 [facility] Comment on above: Performed By: #### L 500.2500, L100.0500 ####[facility] [address] [place], [address] MCHC (RBC) [Mass/Vol] 31.6 g/dL Low 32-36 [facility] Comment on above: Performed By: #### L 500.2500, L100.0500 ####[facility] [address] [place], [address] MCV (RBC) [Entitic vol] 94.9 fL Normal 81-99 [facility] Comment on above: Performed By: #### L 500.2500, L100.0500 ####[facility] [address] [place], [address] Platelet mean volume (Bld) [Entitic vol] 10.2 fL Normal 6.2-12.0 [facility] Comment on above: Performed By: #### L 500.2500, L100.0500 ####[facility] [address] [place], [address] Platelets (Bld) [#/Vol] 238 10*3/uL Normal 150-450 [facility] Comment on above: Performed By: #### L 500.2500, L100.0500 ####[facility] [address] [place], [address] RBC (Bld) [#/Vol] 3.50 10*6/uL Low 4.2-5.4 [facility] Comment on above: Performed By: #### L 500.2500, L100.0500 ####[facility] [address] [place], [address] RDW SD 45.6 fl High 35.1-43.9 [facility] Comment on above: Performed By: #### L 500.2500, L100.0500 ####[facility] [address] [place], [address] WBC (Bld) [#/Vol] 9.8 10*3/uL Normal 4.4-11.0 [facility] Comment on above: Performed By: #### L 500.2500, L100.0500 ####[facility] [address] [place], [address] Calcium [Mass/Vol]Ordered By : Diana Santillan on 07-11-2024 Serum or plasma calcium measurement (mass/volume) 9.0 mg/dL 8.5-10.1 [facility] Carbon dioxide measurementOr dered By: Diana Santillan on 07-11-2024 CO2 [Moles/Vol] 26.0 mmol/L 21.0-32.0 [facility] Carbon dioxide measurement 26.0 mmol/L 21.0-32.0 [facility] Chloride measurementOrdered By: Diana Santillan on 07-11-2024 Chloride [Moles/Vol] 103 mmol/L 98-107 [facility] Chloride measurement 103 mmol/L 98-107 [facility] Creatinine [Mass/Vol]Ordered By: Diana Santillan on 07-11-2024 Serum or plasma creatinine measurement (mass/volume) 3.90 mg/dL High 0.55-1.02 [facility] Discharge Instructionon Discharge Instruction Normal [facility] Discharge Instruction Normal [facility] Erythrocyte distribution wid th (RBC) [Entitic vol]Ordered By: Diana Santillan on 07-11-2024 Erythrocyte distribution width standard deviation 45.6 fl High 35.1-43.9 [facility] Erythrocyte distribution wid th (RBC) [Ratio]Ordered By: Diana Santillan on 07-11-2024 Erythrocyte distribution width ratio 13.2 % 11.6-14.6 [facility] Erythrocyte distribution wid th ratioOrdered By: Diana Santillan on 07-11-2024 Erythrocyte distribution width (RBC) [Ratio] 13.2 % 11.6-14.6 [facility] Erythrocyte distribution wid th standard deviationOrdered By: Diana Santillan on 07-11-2024 Erythrocyte distribution width (RBC) [Ratio] 45.6 fl High 35.1-43.9 [facility] Estimated glomerular filtrat ion rate (GFR) AmericanOrdered By: Diana Santillan on 07-11-2024 Estimated glomerular filtration rate (GFR) 15 mL/min Low >60 [facility] Estimation of creatinine magdiel aranceOrdered By: Diana Santillan on 07-11-2024 Estimation of creatinine clearance 11.92 ml/min [facility] Glomerular filtration rate ( GFR) estimationOrdered By: Diana Santillan on 07-11-2024 GFR/1.73 sq M.predicted among non-blacks MDRD (S/P/Bld) [Vol rate/Area] 12 mL/min/{1.73_m2} Low >60 [facility] Glomerular filtration rate (GFR) estimation 12 mL/min Low >60 [facility] Glucose measurementOrdered B y: Diana Santlilan on 07-11-2024 Glucose [Mass/Vol] 90 mg/dL 74-106 [facility] Glucose measurement 90 mg/dL 74-106 [facility] Hematocrit Auto (Bld) [Volum e fraction]Ordered By: Diana Santillan on 07-11-2024 Hematocrit (Bld) [Volume fraction] 33.2 % Low 37-47 [facility] Automated blood hematocrit (percentage) 33.2 % Low 37-47 [facility] Hemoglobin measurementOrdere d By: Diana Santillan on 07-11-2024 Hemoglobin (Bld) [Mass/Vol] 10.5 g/dL Low 12.0-15.0 [facility] Hemoglobin measurement 10.5 g/dL Low 12.0-15.0 [facility] MCV (RBC) [Entitic vol]Order ed By: Diana Santillan on 07-11-2024 MCV (mean corpuscular volume) determination 94.9 fL 81-99 [facility] MCV (mean corpuscular volume ) determinationOrdered By: Diana Santillan on 07-11-2024 MCV (RBC) [Entitic vol] 94.9 fL 81-99 [facility] Mean corpuscular hemoglobin (MCH) determinationOrdered By: Diana Santillan on 07-11-2024 MCH (RBC) [Entitic mass] 30.0 pg 27.0-32.0 [facility] Mean corpuscular hemoglobin (MCH) determination 30.0 pg 27.0-32.0 [facility] Mean corpuscular hemoglobin concentration (MCHC) determinationOrdered By: Diana Santillan on 07-11-2024 Mean corpuscular hemoglobin concentration (MCHC) determination 31.6 g/dL Low 32-36 [facility] Mean platelet volume determi nationOrdered By: Diana Santillan on 07-11-2024 Mean platelet volume determination 10.2 fl 6.2-12.0 [facility] Platelet countOrdered By: Nirmala Santillan on 07-11-2024 Platelets (Bld) [#/Vol] 238 10*3/uL 150-450 [facility] Platelet count 238 K/mm3 150-450 [facility] Potassium measurementOrdered By: Diana Santillan on 07-11-2024 Potassium [Moles/Vol] 4.4 mmol/L 3.5-5.1 [facility] Potassium measurement 4.4 mmol/L 3.5-5.1 [facility] RBC Auto (Bld) [#/Vol]Ordere d By: Diana Santillan on 07-11-2024 RBC (Bld) [#/Vol] 3.50 10*6/uL Low 4.2-5.4 [facility] Automated blood erythrocyte count 3.50 M/mm3 Low 4.2-5.4 [facility] Respiratory Cultureon 2024 RESPC Presumptive C albica ns Amount Growth 1+ Normal [facility] Comment on above: Performed By: #### M 100.2400, M100.2000 ####[facility] [address] [place], [place], [id number] Serum anion gap measurementO rdered By: Diana Santillan on 07-11-2024 Serum anion gap measurement 7 5-15 [facility] Serum or plasma calcium rena urement (mass/volume)Ordered By: Diana Santillan on 07-11-2024 Calcium [Mass/Vol] 9.0 mg/dL 8.5-10.1 [facility] Serum or plasma creatinine m easurement (mass/volume)Ordered By: Diana Santillan on 07-11-2024 Creatinine [Mass/Vol] 3.90 mg/dL High 0.55-1.02 [facility] Serum or plasma urea nitroge n measurement (mass/volume)Ordered By: Diana Santillan on 07-11-2024 Urea nitrogen [Mass/Vol] 67 mg/dL High 01-18 [facility] Sodium levelOrdered By: Sofia Santillan on 07-11-2024 Sodium [Moles/Vol] 136 mmol/L 136-145 [facility] Sodium level 136 mmol/L 136-145 [facility] Urea nitrogen [Mass/Vol]Orde red By: Diana Santillan on 07-11-2024 Serum or plasma urea nitrogen measurement (mass/volume) 67 mg/dL High - [facility] White blood cell (WBC) count Ordered By: Diana Santillan on 07-11-2024 WBC (Bld) [#/Vol] 9.8 10*3/uL 4.4-11.0 [facility] White blood cell (WBC) count 9.8 K/mm3 4.4-11.0 [facility] Basic Metabolic Profile (BMP )on 07-10-2024 BUN/CRE 13.5 RATIO Normal 10-20 [facility] Comment on above: Performed By: #### L 500.2500 ####[facility] [address], [address] CA,Total 8.9 mg/dL Normal 8.5-10.1 [facility] Comment on above: Performed By: #### L 500.2500 ####[facility] [address], [address] Chloride [Moles/Vol] 102 mmol/L Normal 98-107 [facility] Comment on above: Performed By: #### L 500.2500 ####[facility] [address] [place], [address] CO2 [Moles/Vol] 26.0 mmol/L Normal 21.0-32.0 [facility] Comment on above: Performed By: #### L 500.2500 ####[facility] [address] [place], [address] Creatinine [Mass/Vol] 3.42 mg/dL High 0.55-1.02 [facility] Comment on above: Result Comment: The validity of the calculated GFR GFRAA in patients over70 years has not been determined. Clinical correlation isessential. Performed By: #### L 500.2500 ####[facility] [address] [place], [address] ECRCL 13.60 ml/min Normal [facility] Comment on above: Performed By: #### L 500.2500 ####[facility] [address] [place], [address] EST GFR - AA 17 mL/min Low >60 [facility] Comment on above: Result Comment: Afri can Afghan GFR Calc Performed By: #### L 500.2500 ####[facility] [address] [place], [address] GAP 7 Normal 5-15 [facility] Comment on above: Performed By: #### L 500.2500 ####[facility] [address] [place], [address] GFR/1.73 sq M.predicted among non-blacks MDRD (S/P/Bld) [Vol rate/Area] 14 mL/min/{1.73_m2} Low >60 [facility] Comment on above: Result Comment: Non- GFR Calc Performed By: #### L 500.2500 ####[facility] [address] [place], [address] Glucose [Mass/Vol] 94 mg/dL Normal 74-106 [facility] Comment on above: Performed By: #### L 500.2500 ####[facility] [address] [place], [address] Potassium [Moles/Vol] 4.1 mmol/L Normal 3.5-5.1 [facility] Comment on above: Performed By: #### L 500.2500 ####[facility] [address] [place], [place], [address] Sodium [Moles/Vol] 135 mmol/L Low 136-145 [facility] Comment on above: Performed By: #### L 500.2500 ####[facility] [address] [place], [place], [id number] Urea nitrogen [Mass/Vol] 46 mg/dL High 7-18 [facility] Comment on above: Performed By: #### L 500.2500 ####[facility] [address] [place], [place], [id number] ALP [Catalytic activity/Vol] Ordered By: January Perez on 07-09-2024 Serum or plasma alkaline phosphatase measurement 104 U/L 45-117 [facility] ALT [Catalytic activity/Vol] Ordered By: January Perez on 07-09-2024 Serum or plasma alanine aminotransferase (ALT) measurement 23 U/L 13-56 [facility] Absolute lymphocyte countOrd ered By: January Perez on 07-09-2024 Lymphocytes Auto (Unsp spec) [#/Vol] 0.71 10*3/uL Low 0.83-4.51 [facility] Absolute neutrophil countOrd ered By: January Perez on 07-09-2024 Absolute neutrophil count 11.6 X10^3/uL High 2.0-7.7 [facility] Albumin [Mass/Vol]Ordered By : January Perez on 07-09-2024 Serum or plasma albumin measurement (mass/volume) 3.6 g/dL 3.2-5.0 [facility] Albumin to globulin ratioOrd ered By: January Perez on 07-09-2024 Albumin to globulin ratio 1.1 RATIO 0.9-2.4 [facility] Automated lymphocyte count a s percentage of total leukocytesOrdered By: January Perez on 07-09-2024 Lymphocytes/100 WBC Auto (Unsp spec) 5.6 % Low 19-41 [facility] Basophil percentageOrdered B y: January Perez on 07-09-2024 Basophils/100 WBC (Bld) 0.2 % 0-1 [facility] Basophil percentage 0.2 % 0-1 [facility] Bilirubin, totalOrdered By: January Chris on 07-09-2024 Bilirubin [Mass/Vol] 0.40 mg/dL 0.20-1.00 [facility] Bilirubin, total 0.40 mg/dL 0.20-1.00 [facility] CBC W/Diff, Automatedon Absolute Lymph 0.71 X10 3/uL Low 0.83-4.51 [facility] Comment on above: Performed By: #### L 501.5200, L501.2300, L500.4050, L100.0100 ####[facility] [address] [place], [address] Absolute Neut 11.6 X10 3/uL High 2.0-7.7 [facility] Comment on above: Performed By: #### L 501.5200, L501.2300, L500.4050, L100.0100 ####[facility] [address] [place], [address] Basophils/100 WBC (Bld) 0.2 % Normal 0-1 [facility] Comment on above: Performed By: #### L 501.5200, L501.2300, L500.4050, L100.0100 ####[facility] [address] [place], [address] Eosinophils/100 WBC (Bld) 0.0 % Normal 0-5 [facility] Comment on above: Performed By: #### L 501.5200, L501.2300, L500.4050, L100.0100 ####[facility] [address] [place], [address] Erythrocyte distribution width (RBC) [Ratio] 13.0 % Normal 11.6-14.6 [facility] Comment on above: Performed By: #### L 501.5200, L501.2300, L500.4050, L100.0100 ####[facility] [address] [place], [address] Hematocrit (Bld) [Volume fraction] 32.7 % Low 37-47 [facility] Comment on above: Performed By: #### L 501.5200, L501.2300, L500.4050, L100.0100 ####[facility] [address] [place], [address] Hemoglobin (Bld) [Mass/Vol] 10.6 g/dL Low 12.0-15.0 [facility] Comment on above: Performed By: #### L 501.5200, L501.2300, L500.4050, L100.0100 ####[facility] [address] [place], [address] IG% 0.600 Normal 0.0-0.9 [facility] Comment on above: Result Comment: IG% - Immature Granulocytes (promyelocytes, myelocytes andmetamyelocytes) > 1% indicates that a LEFT SHIFT is Present. Performed By: #### L 501.5200, L501.2300, L500.4050, L100.0100 ####[facility] [address] [place], [address] Lymphocytes/100 WBC (Bld) 5.6 % Low 19-41 [facility] Comment on above: Performed By: #### L 501.5200, L501.2300, L500.4050, L100.0100 ####[facility] [address] [place], [address] MCH (RBC) [Entitic mass] 30.4 pg Normal 27.0-32.0 [facility] Comment on above: Performed By: #### L 501.5200, L501.2300, L500.4050, L100.0100 ####[facility] [address] [place], [address] MCHC (RBC) [Mass/Vol] 32.4 g/dL Normal 32-36 [facility] Comment on above: Performed By: #### L 501.5200, L501.2300, L500.4050, L100.0100 ####[facility] [address] [place], [address] MCV (RBC) [Entitic vol] 93.7 fL Normal 81-99 [facility] Comment on above: Performed By: #### L 501.5200, L501.2300, L500.4050, L100.0100 ####[facility] [address] [place], [address] Monocytes/100 WBC (Bld) 2.7 % Normal 0-10 [facility] Comment on above: Performed By: #### L 501.5200, L501.2300, L500.4050, L100.0100 ####[facility] [address] [place], [address] Neutrophils/100 WBC (Bld) 90.9 % High 47-70 [facility] Comment on above: Performed By: #### L 501.5200, L501.2300, L500.4050, L100.0100 ####[facility] [address] [place], [address] Nucleated RBC (Bld) [#/Vol] 0 10*3/uL Normal 0-5 [facility] Comment on above: Performed By: #### L 501.5200, L501.2300, L500.4050, L100.0100 ####[facility] [address] [place], [address] Platelet mean volume (Bld) [Entitic vol] 9.5 fL Normal 6.2-12.0 [facility] [facility] Comment on above: Performed By: #### L 501.5200, L501.2300, L500.4050, L100.0100 ####[facility] [address] [place], [address] Platelets (Bld) [#/Vol] 227 10*3/uL Normal 150-450 [facility] Comment on above: Performed By: #### L 501.5200, L501.2300, L500.4050, L100.0100 ####[facility] [address] [place], [address] RBC (Bld) [#/Vol] 3.49 10*6/uL Low 4.2-5.4 [facility] Comment on above: Performed By: #### L 501.5200, L501.2300, L500.4050, L100.0100 ####[facility] [address] [place], [address] RDW SD 44.7 fl High 35.1-43.9 [facility] Comment on above: Performed By: #### L 501.5200, L501.2300, L500.4050, L100.0100 ####[facility] [address] [place], [address] WBC (Bld) [#/Vol] 12.7 10*3/uL High 4.4-11.0 [facility] Comment on above: Performed By: #### L 501.5200, L501.2300, L500.4050, L100.0100 ####[facility] [address] [place], [address] Yudith 07-09-2024 MARIANN Telephone (INTMWS) CONORSNEHA MENON ([id number]) 1955 F Date Time Provider Department 07/09/24 JULIO DRAPER INTAllisonWS During your visit today, we recorded the following information about you: Genna Lowry RN 07/09/2024 12:15 PM Signed Nell from [facility] calls and states that patient is being discharged from [facility] either today or tomorrow with the diagnosis of RSV. Nell asking if provider willing to follow patient with orders for senior care, occupational therapy, and physical therapy. If agreeable [...] by mouth two times a day. - fqbtbuyzdv-acpohxmo-vm rmoterol (BREZTRI) 160-9-4.8 mcg/actuation HFA aerosol inhaler [...] [Z87.19] 07/20 (more content not included)... Normal [facility] ilon 07-09-2024 Albumin [Mass/Vol] 3.6 g/dL Normal 3.2-5.0 [facility] Comment on above: Performed By: #### L 501.5200, L501.2300, L500.4050, L100.0100 ####[facility] [address] [place], [address] Albumin/Globulin [Mass ratio] 1.1 {ratio} Normal 0.9-2.4 [facility] Comment on above: Performed By: #### L 501.5200, L501.2300, L500.4050, L100.0100 ####[facility] [address] [place], [address] ALK P 104 U/L Normal 45-117 [facility] Comment on above: Performed By: #### L 501.5200, L501.2300, L500.4050, L100.0100 ####[facility] [address] [place], [address] ALT [Catalytic activity/Vol] 23 U/L Normal 13-56 [facility] Comment on above: Performed By: #### L 501.5200, L501.2300, L500.4050, L100.0100 ####[facility] [address] [place], [address] AST [Catalytic activity/Vol] 19 U/L Normal 15-37 [facility] Comment on above: Performed By: #### L 501.5200, L501.2300, L500.4050, L100.0100 ####[facility] [address] [place], [address] Bilirubin [Mass/Vol] 0.40 mg/dL Normal 0.20-1.00 [facility] Comment on above: Result Comment: For patients on eltrombopag therapy, use of Dimension Campbell TBIL is not recommended. Performed By: #### L 501.5200, L501.2300, L500.4050, L100.0100 ####[facility] [address] [place], [address] BUN/CRE 10.7 RATIO Normal 10-20 [facility] Comment on above: Performed By: #### L 501.5200, L501.2300, L500.4050, L100.0100 ####[facility] [address] [place], [address] CA,Total 9.3 mg/dL Normal 8.5-10.1 [facility] Comment on above: Performed By: #### L 501.5200, L501.2300, L500.4050, L100.0100 ####[facility] [address] [place], [address] Chloride [Moles/Vol] 101 mmol/L Normal 98-107 [facility] Comment on above: Performed By: #### L 501.5200, L501.2300, L500.4050, L100.0100 ####[facility] [address] [place], [address] CO2 [Moles/Vol] 28.0 mmol/L Normal 21.0-32.0 [facility] Comment on above: Performed By: #### L 501.5200, L501.2300, L500.4050, L100.0100 ####[facility] [address] [place], [address] Creatinine [Mass/Vol] 4.20 mg/dL High 0.55-1.02 [facility] Comment on above: Result Comment: The validity of the calculated GFR GFRAA in patients over70 years has not been determined. Clinical correlation isessential. Performed By: #### L 501.5200, L501.2300, L500.4050, L100.0100 ####[facility] [address], [address] ECRCL 11.07 ml/min Normal [facility] Comment on above: Performed By: #### L 501.5200, L501.2300, L500.4050, L100.0100 ####[facility] [address] [place], [address] EST GFR - AA 14 mL/min Low >60 [facility] Comment on above: Result Comment: Afri can Afghan GFR Calc Performed By: #### L 501.5200, L501.2300, L500.4050, L100.0100 ####[facility] [address] [place], [address] GAP 7 Normal 5-15 [facility] Comment on above: Performed By: #### L 501.5200, L501.2300, L500.4050, L100.0100 ####[facility] [address] [place], [address] GFR/1.73 sq M.predicted among non-blacks MDRD (S/P/Bld) [Vol rate/Area] 11 mL/min/{1.73_m2} Low >60 [facility] Comment on above: Result Comment: Non- GFR Calc Performed By: #### L 501.5200, L501.2300, L500.4050, L100.0100 ####[facility] [address] [place], [address] Globulin (S) [Mass/Vol] 3.4 g/dL Normal 2.2-4.2 [facility] Comment on above: Performed By: #### L 501.5200, L501.2300, L500.4050, L100.0100 ####[facility] [address] [place], [address] Glucose [Mass/Vol] 149 mg/dL High 74-106 [facility] Comment on above: Result Comment: Fast ing Glucose result greater than or equal to 126 mg/dLsuggests DIABETES MELLITUS per A.D.A. criteria. Performed By: #### L 501.5200, L501.2300, L500.4050, L100.0100 ####[facility] [address] [place], [address] Potassium [Moles/Vol] 4.3 mmol/L Normal 3.5-5.1 [facility] Comment on above: Performed By: #### L 501.5200, L501.2300, L500.4050, L100.0100 ####[facility] [address] [place], [address] Sodium [Moles/Vol] 135 mmol/L Low 136-145 [facility] Comment on above: Performed By: #### L 501.5200, L501.2300, L500.4050, L100.0100 ####[facility] [address] [place], [address] T PROT 7.0 g/dL Normal 6.4-8.2 [facility] Comment on above: Performed By: #### L 501.5200, L501.2300, L500.4050, L100.0100 ####[facility] [address] [place], [address] Urea nitrogen [Mass/Vol] 45 mg/dL High 7-18 [facility] Comment on above: Performed By: #### L 501.5200, L501.2300, L500.4050, L100.0100 ####[facility] [address] [place], [address] Consultation - Nephrologyon 07-09-2024 Consultation - Nephrology Normal [facility] Eosinophil percentageOrdered By: January Perez on 07-09-2024 Eosinophils/100 WBC (Bld) 0.0 % 0-5 [facility] Eosinophil percentage 0.0 % 0-5 [facility] Gram Stainon 07-09-2024 GS Acceptable Specimen? Yes (<25 Epithelial cells per/lpf) Gram Stain 3+ Gram positive cocci Rare Yeast Like Organisms 2+ White Blood Cells No Epithelial cells Normal [facility] Comment on above: Performed By: #### M 100.2400, M100.2000 ####[facility] [address] [place], [address] Immature granulocytes/100 WB C Auto (Bld)Ordered By: January Perez on 07-09-2024 Immature granulocytes/100 WBC (Bld) 0.600 % 0.0-0.9 [facility] Automated immature granulocyte percentage 0.600 % 0.0-0.9 [facility] Legionella Antigen Urineon 0 07-09-2024 LEGU Normal [facility] Comment on above: Performed By: #### M 300.4600, M300.4500 ####[facility] [address] [place], [address] Lymphocytes Auto (Unsp spec) [#/Vol]Ordered By: January Perez on 07-09-2024 Absolute lymphocyte count 0.71 X10^3/uL Low 0.83-4.51 [facility] Lymphocytes/100 WBC Auto (Un sp spec)Ordered By: January Perez on 07-09-2024 Automated lymphocyte count as percentage of total leukocytes 5.6 % Low 19-41 [facility] Magnesiumon 07-09-2024 Magnesium [Mass/Vol] 2.1 mg/dL Normal 1.6-2.6 [facility] Comment on above: Performed By: #### L 501.5200, L501.2300, L500.4050, L100.0100 ####[facility] [address] [place], [address] Magnesium measurementOrdered By: January Perez on 07-09-2024 Magnesium [Mass/Vol] 2.1 mg/dL 1.6-2.6 [facility] Magnesium measurement 2.1 mg/dL 1.6-2.6 [facility] Monocyte percentageOrdered B y: January Perez on 07-09-2024 Monocytes/100 WBC (Bld) 2.7 % 0-10 W [facility] Monocyte percentage 2.7 % 0-10 [facility] Neutrophil percentageOrdered By: January Perez on 07-09-2024 Neutrophils/100 WBC (Bld) 90.9 % High 47-70 [facility] Neutrophil percentage 90.9 % High 47-70 [facility] No Panel InformationOrdered By: January Perez on 07-09-2024 19 U/L 15-37 [facility] Nucleated red blood cell per centageOrdered By: January Perez on 07-09-2024 Nucleated red blood cell percentage 0 % 0-5 [facility] Phosphoruson 07-09-2024 Phosphate [Mass/Vol] 5.0 mg/dL High 2.5-4.9 [facility] Comment on above: Performed By: #### L 501.5200, L501.2300, L500.4050, L100.0100 ####[facility] [address] [place], [address] Phosphorus measurementOrdere d By: January Perez on 07-09-2024 Phosphorus measurement 5.0 mg/dL High 2.5-4.9 [facility] Serum globulin measurementOr dered By: January Perez on 07-09-2024 Globulin (S) [Mass/Vol] 3.4 g/dL 2.2-4.2 W [facility] Serum globulin measurement 3.4 g/dL 2.2-4.2 [facility] Serum or plasma alanine montana otransferase (ALT) measurementOrdered By: January Perez on 07-09-2024 ALT [Catalytic activity/Vol] 23 U/L 13-56 [facility] Serum or plasma albumin rena urement (mass/volume)Ordered By: January Perez on 07-09-2024 Albumin [Mass/Vol] 3.6 g/dL 3.2-5.0 [facility] Serum or plasma alkaline malka sphatase measurementOrdered By: January Perez on 07-09-2024 ALP [Catalytic activity/Vol] 104 U/L 45-117 [facility] Strep pneumoniae Antig(UR,CS F)on 07-09-2024 STPAG Normal [facility] Comment on above: Performed By: #### M 300.4600, M300.4500 ####[facility] [address], [address] Total proteinOrdered By: Karin Perez on 07-09-2024 Protein [Mass/Vol] 7.0 g/dL 6.4-8.2 [facility] Total protein 7.0 g/dL 6.4-8.2 [facility] Urine Legionella pneumophila antigen detectionOrdered By: January Perez on 07-09-2024 L. pneumophila Ag Ql (U) [facility] 12 Lead EKGon 07-08-2024 12 Lead EKG Normal [facility] BNP (brain natriuretic pepti de measurement)Ordered By: Hoang Foster on 07-08-2024 Natriuretic peptide B (Bld) [Mass/Vol] 65.2 pg/mL 0-100 [facility] BNP (brain natriuretic peptide measurement) 65.2 pg/mL 0-100 [facility] BNP,B-Type NATRIURETIC PEPTI Arian 07-08-2024 Natriuretic peptide B (Bld) [Mass/Vol] 65.2 pg/mL Normal 0-100 [facility] Comment on above: Performed By: #### L 501.5200, L100.0100, L500.2500, L501.2300, L503.6620 ####[facility] [address], [address] Basic Metabolic Profile (BMP )on 07-08-2024 BUN/CRE 8.3 RATIO Low 10-20 [facility] Comment on above: Performed By: #### L 501.5200, L100.0100, L500.2500, L501.2300, L503.6620 ####[facility] [address], [address] CA,Total 9.3 mg/dL Normal 8.5-10.1 [facility] Comment on above: Performed By: #### L 501.5200, L100.0100, L500.2500, L501.2300, L503.6620 ####[facility] [address] [place], [address] Chloride [Moles/Vol] 101 mmol/L Normal 98-107 [facility] Comment on above: Performed By: #### L 501.5200, L100.0100, L500.2500, L501.2300, L503.6620 ####[facility] [address] [place], [address] CO2 [Moles/Vol] 29.0 mmol/L Normal 21.0-32.0 [facility] Comment on above: Performed By: #### L 501.5200, L100.0100, L500.2500, L501.2300, L503.6620 ####[facility] [address] [place], [address] Creatinine [Mass/Vol] 3.51 mg/dL High 0.55-1.02 [facility] Comment on above: Result Comment: The validity of the calculated GFR GFRAA in patients over70 years has not been determined. Clinical correlation isessential. Performed By: #### L 501.5200, L100.0100, L500.2500, L501.2300, L503.6620 ####[facility] [address] [place], [address] ECRCL 14.45 ml/min Normal [facility] Comment on above: Performed By: #### L 501.5200, L100.0100, L500.2500, L501.2300, L503.6620 ####[facility] [address] [place], [address] EST GFR - AA 17 mL/min Low >60 [facility] Comment on above: Result Comment: Afri can Afghan GFR Calc Performed By: #### L 501.5200, L100.0100, L500.2500, L501.2300, L503.6620 ####[facility] [address] [place], [address] GAP 8 Normal 5-15 [facility] Comment on above: Performed By: #### L 501.5200, L100.0100, L500.2500, L501.2300, L503.6620 ####[facility] [address] [place], [address] GFR/1.73 sq M.predicted among non-blacks MDRD (S/P/Bld) [Vol rate/Area] 14 mL/min/{1.73_m2} Low >60 [facility] Comment on above: Result Comment: Non- GFR Calc Performed By: #### L 501.5200, L100.0100, L500.2500, L501.2300, L503.6620 ####[facility] [address] [place], [address] Glucose [Mass/Vol] 114 mg/dL High 74-106 [facility] Comment on above: Result Comment: Fast ing Glucose result from 100 to 125 mg/dLsuggests IMPAIRED HOMEOSTASIS per A.D.A. criteria. Performed By: #### L 501.5200, L100.0100, L500.2500, L501.2300, L503.6620 ####[facility] [address] [place], [address] Potassium [Moles/Vol] 3.2 mmol/L Low 3.5-5.1 [facility] Comment on above: Performed By: #### L 501.5200, L100.0100, L500.2500, L501.2300, L503.6620 ####[facility] [address] [place], [address] Sodium [Moles/Vol] 138 mmol/L Normal 136-145 [facility] Comment on above: Performed By: #### L 501.5200, L100.0100, L500.2500, L501.2300, L503.6620 ####[facility] [address] [place], [address] Urea nitrogen [Mass/Vol] 29 mg/dL High 7-18 [facility] Comment on above: Performed By: #### L 501.5200, L100.0100, L500.2500, L501.2300, L503.6620 ####[facility] [address] [place], [address] CBC W/Diff, Automatedon 01-0 5-2024 Absolute Lymph 0.89 X10 3/uL Normal 0.83-4.51 [facility] Comment on above: Performed By: #### L 501.5200, L100.0100, L500.2500, L501.2300, L503.6620 ####[facility] [address] [place], [address] Absolute Neut 7.2 X10 3/uL Normal 2.0-7.7 [facility] Comment on above: Performed By: #### L 501.5200, L100.0100, L500.2500, L501.2300, L503.6620 ####[facility] [address] [place], [address] Basophils/100 WBC (Bld) 0.6 % Normal 0-1 W [facility] Comment on above: Performed By: #### L 501.5200, L100.0100, L500.2500, L501.2300, L503.6620 ####[facility] [address] [place], [address] Eosinophils/100 WBC (Bld) 6.0 % High 0-5 [facility] Comment on above: Performed By: #### L 501.5200, L100.0100, L500.2500, L501.2300, L503.6620 ####[facility] [address] [place], [address] Erythrocyte distribution width (RBC) [Ratio] 13.0 % Normal 11.6-14.6 [facility] Comment on above: Performed By: #### L 501.5200, L100.0100, L500.2500, L501.2300, L503.6620 ####[facility] [address] [place], [address] Hematocrit (Bld) [Volume fraction] 32.6 % Low 37-47 [facility] Comment on above: Performed By: #### L 501.5200, L100.0100, L500.2500, L501.2300, L503.6620 ####[facility] [address] [place], [address] Hemoglobin (Bld) [Mass/Vol] 10.7 g/dL Low 12.0-15.0 [facility] Comment on above: Performed By: #### L 501.5200, L100.0100, L500.2500, L501.2300, L503.6620 ####[facility] [address] [place], [address] IG% 0.300 Normal 0.0-0.9 [facility] Comment on above: Result Comment: IG% - Immature Granulocytes (promyelocytes, myelocytes andmetamyelocytes) > 1% indicates that a LEFT SHIFT is Present. Performed By: #### L 501.5200, L100.0100, L500.2500, L501.2300, L503.6620 ####[facility] [address] [place], [address] Lymphocytes/100 WBC (Bld) 9.2 % Low 19-41 [facility] Comment on above: Performed By: #### L 501.5200, L100.0100, L500.2500, L501.2300, L503.6620 ####[facility] [address] [place], [address] MCH (RBC) [Entitic mass] 30.7 pg Normal 27.0-32.0 [facility] Comment on above: Performed By: #### L 501.5200, L100.0100, L500.2500, L501.2300, L503.6620 ####[facility] [address] [place], [address] MCHC (RBC) [Mass/Vol] 32.8 g/dL Normal 32-36 [facility] Comment on above: Performed By: #### L 501.5200, L100.0100, L500.2500, L501.2300, L503.6620 ####[facility] [address] [place], [address] MCV (RBC) [Entitic vol] 93.7 fL Normal 81-99 [facility] Comment on above: Performed By: #### L 501.5200, L100.0100, L500.2500, L501.2300, L503.6620 ####[facility] [address] [place], [address] Monocytes/100 WBC (Bld) 9.5 % Normal 0-10 [facility] Comment on above: Performed By: #### L 501.5200, L100.0100, L500.2500, L501.2300, L503.6620 ####[facility] [address] [place], [address] Neutrophils/100 WBC (Bld) 74.4 % High 47-70 [facility] Comment on above: Performed By: #### L 501.5200, L100.0100, L500.2500, L501.2300, L503.6620 ####[facility] [address] [place], [address] Nucleated RBC (Bld) [#/Vol] 0 10*3/uL Normal 0-5 [facility] Comment on above: Performed By: #### L 501.5200, L100.0100, L500.2500, L501.2300, L503.6620 ####[facility] [address] [place], [address] Platelet mean volume (Bld) [Entitic vol] 10.2 fL Normal 6.2-12.0 [facility] Comment on above: Performed By: #### L 501.5200, L100.0100, L500.2500, L501.2300, L503.6620 ####[facility] [address] [place], [address] Platelets (Bld) [#/Vol] 207 10*3/uL Normal 150-450 [facility] Comment on above: Performed By: #### L 501.5200, L100.0100, L500.2500, L501.2300, L503.6620 ####[facility] [address] [place], [address] RBC (Bld) [#/Vol] 3.48 10*6/uL Low 4.2-5.4 [facility] Comment on above: Performed By: #### L 501.5200, L100.0100, L500.2500, L501.2300, L503.6620 ####[facility] [address] [place], [address] RDW SD 44.7 fl High 35.1-43.9 [facility] Comment on above: Performed By: #### L 501.5200, L100.0100, L500.2500, L501.2300, L503.6620 ####[facility] [address] [place], [address] WBC (Bld) [#/Vol] 9.7 10*3/uL Normal 4.4-11.0 [facility] Comment on above: Performed By: #### L 501.5200, L100.0100, L500.2500, L501.2300, L503.6620 ####[facility] [address] [place], [address] Chest without Contraston Chest without Contrast Normal [facility] Emergency Department Summary on 07-08-2024 Emergency Department Summary Normal [facility] Gram stainOrdered By: Osmin Perez on 07-08-2024 Microscopic observation Gram stain Nom (Unsp spec) [facility] H AND P Exam - Hospitaliston 07-08-2024 H&P Exam - Hospitalist Normal [facility] Influenza virus A and B and SARS-CoV-2 (COVID-19) and Respiratory syncytial virus RNAOrdered By: Hoang Foster on 07-08-2024 SARS-CoV-2 (COVID-19) RNA FOZIA+probe Ql (Unsp spec) RSV Abnormal [facility] Influenza virus A and B and SARS-CoV-2 (COVID-19) and Respiratory syncytial virus RNA RSV Abnormal [facility] M100.678on 07-08-2024 M100.678 Normal [facility] Comment on above: Performed By: #### M 100.678 ####[facility] [address] [facility] [place], [address] Magnesiumon 07-08-2024 Magnesium [Mass/Vol] 1.9 mg/dL Normal 1.6-2.6 [facility] Comment on above: Performed By: #### L 501.5200, L100.0100, L500.2500, L501.2300, L503.6620 ####[facility] [address] [place], [address] Microbial respiratory cultur eOrdered By: January Perez on 07-08-2024 Microorganism identified Cx Nom (Unsp spec) Presumptive C albicans Abnormal [facility] Microorganism identified Cx Nom (Unsp spec)Ordered By: January Perez on 07-08-2024 Microbial respiratory culture Presumptive C albicans Abnormal [facility] Phosphoruson 07-08-2024 Phosphate [Mass/Vol] 3.6 mg/dL Normal 2.5-4.9 [facility] Comment on above: Performed By: #### L 501.5200, L100.0100, L500.2500, L501.2300, L503.6620 ####[facility] [address] [place], [address] CNOVon 07-05-2024 CNOV Office Visit (INTMWS ) SNEHA CARDENAS ([id number]) 1955 F Date Time Provider Department 07/05/24 1:20 PM JULIO DRAPER INTMWS During your visit today, we recorded the following information about you: Temperature Pulse Respiration Blood pressure 97.9 degrees 104/minute 16/minute 142/64 Weight 63.8 kg Julio Draper MD 07/05/2024 2:13 PM Signed This note was created using [employer]. Subjective Patient presents with: ER F/U Sneha Mendoza Conor is a 69 year old female. [...] tablet by mouth two times a day. ygfvnwprpz-bdhhvhel-lh rmoterol (BREZTRI) 160-9-4.8 mcg/actuation HFA aerosol inhaler [...] - Intoler (more content not included)... Normal [facility] 12 Lead EKGon 07-03-2024 12 Lead EKG Normal [facility] Absolute neutrophil countOrd ered By: Livan Murry on 07-03-2024 Absolute neutrophil count 6.5 X10^3/uL 2.0-7.7 [facility] BNP (brain natriuretic pepti de measurement)Ordered By: Lvian Murry on 07-03-2024 BNP (brain natriuretic peptide measurement) 158.9 pg/mL High 0-100 [facility] BNP,B-Type NATRIURETIC PEPTI Arian 07-03-2024 Natriuretic peptide B (Bld) [Mass/Vol] 158.9 pg/mL High 0-100 [facility] Comment on above: Performed By: #### L 300.4310, L300.3900, L100.0100, L503.6620, L501.4020, L500.2500 ####[facility] [address] [place], [address] Bacteria LM.HPF (Urine sed) [#/Area]Ordered By: Livan Murry on 07-03-2024 Urine sediment bacteria count by microscopy (number/high power field) 1+ /hpf None Seen [facility] Basic Metabolic Profile (BMP )on 07-03-2024 BUN/CRE 8.2 RATIO Low 10-20 [facility] Comment on above: Order Comment: 'TROP ' Serial specimen #1, #2 or #3: 1 Performed By: #### L 300.4310, L300.3900, L100.0100, L503.6620, L501.4020, L500.2500 ####[facility] [address] [place], [address] CA,Total 8.5 mg/dL Normal 8.5-10.1 [facility] Comment on above: Order Comment: 'TROP ' Serial specimen #1, #2 or #3: 1 Performed By: #### L 300.4310, L300.3900, L100.0100, L503.6620, L501.4020, L500.2500 ####[facility] [address] [place], [address] Chloride [Moles/Vol] 98 mmol/L Normal 98-107 [facility] Comment on above: Order Comment: 'TROP ' Serial specimen #1, #2 or #3: 1 Performed By: #### L 300.4310, L300.3900, L100.0100, L503.6620, L501.4020, L500.2500 ####[facility] [address] [place], [address] CO2 [Moles/Vol] 33.0 mmol/L High 21.0-32.0 [facility] Comment on above: Order Comment: 'TROP ' Serial specimen #1, #2 or #3: 1 Performed By: #### L 300.4310, L300.3900, L100.0100, L503.6620, L501.4020, L500.2500 ####[facility] [address] [place], [address] Creatinine [Mass/Vol] 1.96 mg/dL High 0.55-1.02 [facility] Comment on above: Order Comment: 'TROP ' Serial specimen #1, #2 or #3: 1 Result Comment: The validity of the calculated GFR GFRAA in patients over70 years has not been determined. Clinical correlation isessential. Performed By: #### L 300.4310, L300.3900, L100.0100, L503.6620, L501.4020, L500.2500 ####[facility] [address] [place], [address] EST GFR - AA 33 mL/min Low >60 [facility] Comment on above: Order Comment: 'TROP ' Serial specimen #1, #2 or #3: 1 Result Comment: Afri can Afghan GFR Calc Performed By: #### L 300.4310, L300.3900, L100.0100, L503.6620, L501.4020, L500.2500 ####[facility] [address] [place], [address] GAP 6 Normal 5-15 [facility] Comment on above: Order Comment: 'TROP ' Serial specimen #1, #2 or #3: 1 Performed By: #### L 300.4310, L300.3900, L100.0100, L503.6620, L501.4020, L500.2500 ####[facility] [address] [place], [address] GFR/1.73 sq M.predicted among non-blacks MDRD (S/P/Bld) [Vol rate/Area] 27 mL/min/{1.73_m2} Low >60 [facility] Comment on above: Order Comment: 'TROP ' Serial specimen #1, #2 or #3: 1 Result Comment: Non- GFR Calc Performed By: #### L 300.4310, L300.3900, L100.0100, L503.6620, L501.4020, L500.2500 ####[facility] [address] [place], [address] Glucose [Mass/Vol] 96 mg/dL Normal 74-106 [facility] Comment on above: Order Comment: 'TROP ' Serial specimen #1, #2 or #3: 1 Performed By: #### L 300.4310, L300.3900, L100.0100, L503.6620, L501.4020, L500.2500 ####[facility] [address] [place], [address] Potassium [Moles/Vol] 3.2 mmol/L Low 3.5-5.1 [facility] Comment on above: Order Comment: 'TROP ' Serial specimen #1, #2 or #3: 1 Performed By: #### L 300.4310, L300.3900, L100.0100, L503.6620, L501.4020, L500.2500 ####[facility] [address] [place], [address] Sodium [Moles/Vol] 137 mmol/L Normal 136-145 [facility] Comment on above: Order Comment: 'TROP ' Serial specimen #1, #2 or #3: 1 Performed By: #### L 300.4310, L300.3900, L100.0100, L503.6620, L501.4020, L500.2500 ####[facility] [address] [place], [address] Urea nitrogen [Mass/Vol] 16 mg/dL Normal 7-18 [facility] Comment on above: Order Comment: 'TROP ' Serial specimen #1, #2 or #3: 1 Performed By: #### L 300.4310, L300.3900, L100.0100, L503.6620, L501.4020, L500.2500 ####[facility] [address] [place], [address] Basophil percentageOrdered B y: Livan Russellalva on 07-03-2024 Basophil percentage 0.5 % 0-1 [facility] Blood urea nitrogen (BUN)/cr eatinine ratioOrdered By: Livan Russellalva on 07-03-2024 Blood urea nitrogen (BUN)/creatinine ratio 8.2 RATIO Low 10-20 [facility] CBC W/Diff, Automatedon 12-09 01-2023 Absolute Lymph 1.36 X10 3/uL Normal 0.83-4.51 [facility] Comment on above: Performed By: #### L 300.4310, L300.3900, L100.0100, L503.6620, L501.4020, L500.2500 ####[facility] [address] [place], [address] Absolute Neut 6.5 X10 3/uL Normal 2.0-7.7 [facility] Comment on above: Performed By: #### L 300.4310, L300.3900, L100.0100, L503.6620, L501.4020, L500.2500 ####[facility] [address] [place], [address] Basophils/100 WBC (Bld) 0.5 % Normal 0-1 [facility] Comment on above: Performed By: #### L 300.4310, L300.3900, L100.0100, L503.6620, L501.4020, L500.2500 ####[facility] [address] [place], [address] Eosinophils/100 WBC (Bld) 3.3 % Normal 0-5 [facility] Comment on above: Performed By: #### L 300.4310, L300.3900, L100.0100, L503.6620, L501.4020, L500.2500 ####[facility] [address], [address] Erythrocyte distribution width (RBC) [Ratio] 13.2 % Normal 11.6-14.6 [facility] Comment on above: Performed By: #### L 300.4310, L300.3900, L100.0100, L503.6620, L501.4020, L500.2500 ####[facility] [address] [place], [address] Hematocrit (Bld) [Volume fraction] 35.4 % Low 37-47 [facility] Comment on above: Performed By: #### L 300.4310, L300.3900, L100.0100, L503.6620, L501.4020, L500.2500 ####[facility] [address] [place], [address] Hemoglobin (Bld) [Mass/Vol] 11.3 g/dL Low 12.0-15.0 [facility] Comment on above: Performed By: #### L 300.4310, L300.3900, L100.0100, L503.6620, L501.4020, L500.2500 ####[facility] [address] [place], [address] IG% 0.200 Normal 0.0-0.9 [facility] Comment on above: Result Comment: IG% - Immature Granulocytes (promyelocytes, myelocytes andmetamyelocytes) > 1% indicates that a LEFT SHIFT is Present. Performed By: #### L 300.4310, L300.3900, L100.0100, L503.6620, L501.4020, L500.2500 ####[facility] [address] [place], [address] Lymphocytes/100 WBC (Bld) 14.9 % Low 19-41 [facility] Comment on above: Performed By: #### L 300.4310, L300.3900, L100.0100, L503.6620, L501.4020, L500.2500 ####[facility] [address] [place], [address] MCH (RBC) [Entitic mass] 30.1 pg Normal 27.0-32.0 [facility] Comment on above: Performed By: #### L 300.4310, L300.3900, L100.0100, L503.6620, L501.4020, L500.2500 ####[facility] [address] [place], [address] MCHC (RBC) [Mass/Vol] 31.9 g/dL Low 32-36 [facility] Comment on above: Performed By: #### L 300.4310, L300.3900, L100.0100, L503.6620, L501.4020, L500.2500 ####[facility] [address] [place], [address] MCV (RBC) [Entitic vol] 94.4 fL Normal 81-99 [facility] Comment on above: Performed By: #### L 300.4310, L300.3900, L100.0100, L503.6620, L501.4020, L500.2500 ####[facility] [address] [place], [address] Monocytes/100 WBC (Bld) 10.6 % High 0-10 [facility] Comment on above: Performed By: #### L 300.4310, L300.3900, L100.0100, L503.6620, L501.4020, L500.2500 ####[facility] [address] [place], [address] Neutrophils/100 WBC (Bld) 70.5 % High 47-70 [facility] Comment on above: Performed By: #### L 300.4310, L300.3900, L100.0100, L503.6620, L501.4020, L500.2500 ####[facility] [address] [place], [address] Nucleated RBC (Bld) [#/Vol] 0 10*3/uL Normal 0-5 [facility] Comment on above: Performed By: #### L 300.4310, L300.3900, L100.0100, L503.6620, L501.4020, L500.2500 ####[facility] [address] [place], [address] Platelet mean volume (Bld) [Entitic vol] 10.4 fL Normal 6.2-12.0 [facility] Comment on above: Performed By: #### L 300.4310, L300.3900, L100.0100, L503.6620, L501.4020, L500.2500 ####[facility] [address] [place], [address] Platelets (Bld) [#/Vol] 219 10*3/uL Normal 150-450 [facility] Comment on above: Performed By: #### L 300.4310, L300.3900, L100.0100, L503.6620, L501.4020, L500.2500 ####[facility] [address] [place], [address] RBC (Bld) [#/Vol] 3.75 10*6/uL Low 4.2-5.4 [facility] Comment on above: Performed By: #### L 300.4310, L300.3900, L100.0100, L503.6620, L501.4020, L500.2500 ####[facility] [address] [place], [address] RDW SD 45.1 fl High 35.1-43.9 [facility] Comment on above: Performed By: #### L 300.4310, L300.3900, L100.0100, L503.6620, L501.4020, L500.2500 ####[facility] [address], [address] WBC (Bld) [#/Vol] 9.2 10*3/uL Normal 4.4-11.0 [facility] Comment on above: Performed By: #### L 300.4310, L300.3900, L100.0100, L503.6620, L501.4020, L500.2500 ####[facility] [address] [place], [address] Calcium [Mass/Vol]Ordered By : Livan Murry on 07-03-2024 Serum or plasma calcium measurement (mass/volume) 8.5 mg/dL 8.5-10.1 [facility] Carbon dioxide measurementOr dered By: Livan Murry on 07-03-2024 Carbon dioxide measurement 33.0 mmol/L High 21.0-32.0 [facility] Chest PA and Lateralon 07-03 Chest PA and Lateral Normal [facility] Chloride measurementOrdered By: Livan Murry on 07-03-2024 Chloride measurement 98 mmol/L 98-107 [facility] Clarity (U)Ordered By: Livan Murry on 07-03-2024 Urine clarity Clear Clear [facility] Color (U)Ordered By: Livan banerjee on 07-03-2024 Urine color determination Yellow Yellow [facility] Creatinine [Mass/Vol]Ordered By: Livan Murry on 07-03-2024 Serum or plasma creatinine measurement (mass/volume) 1.96 mg/dL High 0.55-1.02 [facility] Emergency Department Summary on 07-03-2024 Emergency Department Summary Normal [facility] Eosinophil percentageOrdered By: Livan Murry on 07-03-2024 Eosinophil percentage 3.3 % 0-5 [facility] Erythrocyte distribution wid th (RBC) [Entitic vol]Ordered By: Livan Murry on 07-03-2024 Erythrocyte distribution width standard deviation 45.1 fl High 35.1-43.9 [facility] Erythrocyte distribution wid th (RBC) [Ratio]Ordered By: Livansofia Murry on 07-03-2024 Erythrocyte distribution width ratio 13.2 % 11.6-14.6 [facility] Estimated glomerular filtrat ion rate (GFR) AmericanOrdered By: Livan Murry on 07-03-2024 Estimated glomerular filtration rate (GFR) 33 mL/min Low >60 [facility] Glomerular filtration rate ( GFR) estimationOrdered By: Livansofia Murry on 07-03-2024 Glomerular filtration rate (GFR) estimation 27 mL/min Low >60 [facility] Glucose measurementOrdered B y: Livan Murry on 07-03-2024 Glucose measurement 96 mg/dL 74-106 [facility] Hematocrit Auto (Bld) [Volum e fraction]Ordered By: Livan Murry on 07-03-2024 Automated blood hematocrit (percentage) 35.4 % Low 37-47 [facility] Hemoglobin measurementOrdere d By: Livan Murry on 07-03-2024 Hemoglobin measurement 11.3 g/dL Low 12.0-15.0 [facility] Immature granulocytes/100 WB C Auto (Bld)Ordered By: Livansofia Murry on 07-03-2024 Automated immature granulocyte percentage 0.200 % 0.0-0.9 [facility] International normalized rat io (INR) calculationOrdered By: Livansofia Murry on 07-03-2024 International normalized ratio (INR) calculation 1.0 [facility] L501.4020on 07-03-2024 TROPONIN-I HS 19 pg/mL Normal 3.0-54.0 [facility] Comment on above: Order Comment: 'TROP ' Serial specimen #1, #2 or #3: 1 Result Comment: Plea se Note: New Test Units and Gender Specific Reference Ranges. For more information see Policy Stat Procedure [place] High Sensitivity Troponin (TNIH) and attachments. Performed By: #### L 300.4310, L300.3900, L100.0100, L503.6620, L501.4020, L500.2500 ####[facility] [address] [place], [place], [id number] Lymphocytes Auto (Unsp spec) [#/Vol]Ordered By: Livan Murry on 07-03-2024 Absolute lymphocyte count 1.36 X10^3/uL 0.83-4.51 [facility] Lymphocytes/100 WBC Auto (Un sp spec)Ordered By: Livan Murry on 07-03-2024 Automated lymphocyte count as percentage of total leukocytes 14.9 % Low 19-41 [facility] M100.678on 07-03-2024 M100.678 Pending SARS-CoV-2 (COVID 19) Negative INFLUENZA A Negative INFLUENZA B Negative RSV PCR Negative Normal [facility] Comment on above: Performed By: #### L 400.0001, M100.678 ####[facility] [address] [place], [place], [id number] MCV (RBC) [Entitic vol]Order ed By: Livan Murry on 07-03-2024 MCV (mean corpuscular volume) determination 94.4 fL 81-99 [facility] Mean corpuscular hemoglobin (MCH) determinationOrdered By: Livan Murry on 07-03-2024 Mean corpuscular hemoglobin (MCH) determination 30.1 pg 27.0-32.0 [facility] Mean corpuscular hemoglobin concentration (MCHC) determinationOrdered By: Livan Murry on 07-03-2024 Mean corpuscular hemoglobin concentration (MCHC) determination 31.9 g/dL Low 32-36 [facility] Mean platelet volume determi nationOrdered By: Livan Murry on 07-03-2024 Mean platelet volume determination 10.4 fl 6.2-12.0 [facility] Monocyte percentageOrdered B y: Livan Murry on 07-03-2024 Monocyte percentage 10.6 % High 0-10 [facility] Mucus LM Ql (Urine sed)Order ed By: Livan Murry on 07-03-2024 Mucus detection in urine sediment by light microscopy 0 SEEN /hpf [facility] Neutrophil percentageOrdered By: Livan Murry on 07-03-2024 Neutrophil percentage 70.5 % High 47-70 [facility] Nucleated red blood cell per centageOrdered By: Livan Murry on 07-03-2024 Nucleated red blood cell percentage 0 % 0-5 [facility] Partial Thromboplast Timeon 07-03-2024 aPTT Coag (Bld) [Time] 25.6 s Normal 24.1-36.2 [facility] Comment on above: Performed By: #### L 300.4310, L300.3900, L100.0100, L503.6620, L501.4020, L500.2500 ####[facility] [address] [place], [address] Platelet countOrdered By: Jose Murry on 07-03-2024 Platelet count 219 K/mm3 150-450 [facility] Potassium measurementOrdered By: Livan Murry on 07-03-2024 Potassium measurement 3.2 mmol/L Low 3.5-5.1 [facility] Protein Test strip Ql (U)Ord ered By: Livan Murry on 07-03-2024 Urine protein assay by test strip, semi-quantitative 100 mg/dl High Negative [facility] Prothrombin Time w/INRon INR Coag (PPP) [Relative time] 1.0 {INR} Normal [facility] Comment on above: Performed By: #### L 300.4310, L300.3900, L100.0100, L503.6620, L501.4020, L500.2500 ####[facility] [address] [place], [address] PT Coag (PPP) [Time] 13.1 s Normal 11.7-14.9 [facility] Comment on above: Performed By: #### L 300.4310, L300.3900, L100.0100, L503.6620, L501.4020, L500.2500 ####[facility] [address] [place], [address] Prothrombin timeOrdered By: Livan Murry on 07-03-2024 Prothrombin time 13.1 SECONDS 11.7-14.9 [facility] RBC Auto (Bld) [#/Vol]Ordere d By: Livan Murry on 07-03-2024 Automated blood erythrocyte count 3.75 M/mm3 Low 4.2-5.4 [facility] Serum anion gap measurementO rdered By: Livan Murry on 07-03-2024 Serum anion gap measurement 6 5-15 [facility] Sodium levelOrdered By: Livan Murry on 07-03-2024 Sodium level 137 mmol/L 136-145 [facility] Specific gravity (U) [Rel de nsity]Ordered By: Livan Murry on 07-03-2024 Urine specific gravity measurement 1.005 1.002-1.030 [facility] Troponin IOrdered By: Livan castillo on 07-03-2024 Troponin I 19 pg/mL 3.0-54.0 [facility] Urea nitrogen [Mass/Vol]Orde red By: Livan Murry on 07-03-2024 Serum or plasma urea nitrogen measurement (mass/volume) 16 mg/dL 7-18 [facility] Urinalysis, Completeon 07-03 BACTERIA 1+ /hpf Normal None Seen [facility] Comment on above: Order Comment: CLEAN CATCH Performed By: #### L 400.4536, ####[facility] [address] [place], [address] EPI,SQUAMOUS 0-5 SEEN Normal 5-10 [facility] Comment on above: Order Comment: CLEAN CATCH Performed By: #### L 400.0001, ####[facility] [address] [place], [address] RBC 0-5 SEEN Normal 0-5 [facility] Comment on above: Order Comment: CLEAN CATCH Performed By: #### L 400.0001, ####[facility] [address] [place], [address] WBC 0-5 SEEN Normal 0-5 [facility] Comment on above: Order Comment: CLEAN CATCH Performed By: #### L 400.0001, ####[facility] [address] [place], [address] Mucus Ql (Urine sed) 0 SEEN Normal [facility] Comment on above: Order Comment: CLEAN CATCH Performed By: #### L 400.0001, M100.678 ####[facility] [address] [place], [place], [address] Urine blood detectionOrdered By: Livan Murry on 07-03-2024 Urine blood detection 150 /ul High Negative [facility] Urine glucose detectionOrder ed By: Livan Murry on 07-03-2024 Urine glucose detection Normal mg/dl Normal [facility] Urine total bilirubin detect ion by test stripOrdered By: Livan Murry on 07-03-2024 Urine total bilirubin detection by test strip Negative Negative [facility] White blood cell (WBC) count Ordered By: Livan Murry on 07-03-2024 White blood cell (WBC) count 9.2 K/mm3 4.4-11.0 [facility] White blood cell countOrdere d By: Livan Murry on 07-03-2024 White blood cell count 0-5 SEEN /hpf 5-10 [facility] aPTT Coag (PPP) [Time]Ordere d By: Livan Murry on 07-03-2024 Activated partial thromboplastin time (aPTT) in platelet poor plasma by coagulation a 25.6 Seconds 24.1-36.2 [facility] pH (U)Ordered By: Livan mclaughlin on 07-03-2024 Urine pH 7.0 5.0 - 8.0 [facility] Surgery Visit Reporton 06-19 Surgery Visit Report Normal [facility] CNOVon 06-07-2024 CNOV Office Visit (PULMWS ) SNEHA CARDENAS ([id number]) 1955 F Date Time Provider Department 06/07/24 1:45 PM MAGALI NIEVES PULMWS During your visit today, we recorded the following information about you: Pulse Respiration Blood pressure Weight 95/minute 17/minute 128/62 67.1 kg Magali Nieves MD 06/07/2024 3:35 PM Signed . Respiratory [place] Note Patient name: Sneha Cardenas PCP: Julio [...] mid 90s. She was asking about possible [place] valve for her COPD. DATA: Imaging / Diagnostic Studies: DATE OF EXAM: May 10 2024 1:23PM [facility] 0541 - CT CHEST WO IVCON / [...] pathological fracture 08/28/2021 EARNEST (acute kidney injury) ([facility]) EARNEST (acute kidney injury) ([facility]) Anemia requiring transfusions 06/15/2023 Antibiotic-associated diarrhea 07/14/2023 Asthma Benign essential tremor Chronic obstructive pulmonary disease ([facility]) 07/25/2012 Chronic respiratory failure with hypoxia ([facility]) 11/05/2022 Coagulation defect, unspecified ([facility]) 08/25/2023 COPD (chronic obstructive pulmonary disease) ([facility]) 07/25/2012 FEV1 0.84L (32%), 10/18/2014 Coronary artery disease 08/19/2023 DDD (degenerative disc disease), cervical 08/15/2015 Empyema ([facility]) 07/09/2023 Environmental allergies Wheezes with hay or dust ESRD (end stage renal disease) ([facility]) Essential and other specified forms of tremor 11/02/2007 Benign essential -- started primidone 06/03/09, Dr. Nguyễn Essential tremor 11/02/2007 Benign essential -- started primidone 06/03/09, Dr. Nguyễn Gastrointestinal hemorrhage associated with peptic ulcer 08/02/2023 Hemodialysis catheter malfunction ([facility]) 08/19/2023 History of colon polyps 2010 Tubular adenoma. Hypertension Hypoxemia 05/01/2021 Post Covid pneumonia. Irritable bowel syndrome Lung nodule Migraine headache Improved with primidone Multiple duodenal ulcers 06/30/2023 NSTEMI (non-ST elevated myocardial infarction) ([facility]) 07/20/2023 Parapneumonic effusion Pneumonia due to COVID-19 virus 05/01/2021 Pneumonia due to infectious organism 06/30/2023 Pulmonary emphysema ([facility]) 07/19/2023 Scoliosis Shock, septic ([facility]) 07/11/2023 Snoring Tobacco use disorder (more content not included)... [facility] Discharge Instruction Normal [facility] Humerus min 2 Viewson 2023 Humerus min 2 Views Normal [facility] MR/POSTOP.ANEon 06-05-2024 MR/POSTOP.ANE Normal [facility] MR/[id number] 06-05-2024 MR/POSTOPAN2 Normal [facility] Operative Reporton Operative Report Normal [facility] Basic Metabolic Profile (BMP )on 05-24-2024 BUN/CRE 7.1 RATIO Low - [facility] Comment on above: Performed By: #### L 500.2500, L100.0500 ####[facility] [address] [place], [address] CA,Total 9.3 mg/dL Normal 8.5-10.1 [facility] Comment on above: Performed By: #### L 500.2500, L100.0500 ####[facility] [address] [place], [address] Chloride [Moles/Vol] 103 mmol/L Normal 98-107 [facility] Comment on above: Performed By: #### L 500.2500, L100.0500 ####[facility] [address] [place], [address] CO2 [Moles/Vol] 27.0 mmol/L Normal 21.0-32.0 [facility] Comment on above: Performed By: #### L 500.2500, L100.0500 ####[facility] [address] [place], [address] Creatinine [Mass/Vol] 3.78 mg/dL High 0.55-1.02 [facility] Comment on above: Result Comment: The validity of the calculated GFR GFRAA in patients over70 years has not been determined. Clinical correlation isessential. Performed By: #### L 500.2500, L100.0500 ####[facility] [address] [place], [address] EST GFR - AA 15 mL/min Low >60 [facility] Comment on above: Result Comment: Afri can Afghan GFR Calc Performed By: #### L 500.2500, L100.0500 ####[facility] [address] [place], [address] GAP 8 Normal 5-15 [facility] Comment on above: Performed By: #### L 500.2500, L100.0500 ####[facility] [address] [place], [address] GFR/1.73 sq M.predicted among non-blacks MDRD (S/P/Bld) [Vol rate/Area] 13 mL/min/{1.73_m2} Low >60 [facility] Comment on above: Result Comment: Non- GFR Calc Performed By: #### L 500.2500, L100.0500 ####[facility] [address] [place], [address] Glucose [Mass/Vol] 88 mg/dL Normal 74-106 [facility] Comment on above: Performed By: #### L 500.2500, L100.0500 ####[facility] [address] [place], [address] Potassium [Moles/Vol] 4.4 mmol/L Normal 3.5-5.1 [facility] Comment on above: Performed By: #### L 500.2500, L100.0500 ####[facility] [address] [place], [address] Sodium [Moles/Vol] 138 mmol/L Normal 136-145 [facility] Comment on above: Performed By: #### L 500.2500, L100.0500 ####[facility] [address] [place], [address] Urea nitrogen [Mass/Vol] 27 mg/dL High 7-18 [facility] Comment on above: Performed By: #### L 500.2500, L100.0500 ####[facility] [address] [place], [address] Blood urea nitrogen (BUN)/cr eatinine ratioOrdered By: Livan Love on 05-24-2024 Blood urea nitrogen (BUN)/creatinine ratio 7.1 RATIO Low 10-20 [facility] CBC-Complete Blood Cnt No Di ffon 05-24-2024 Erythrocyte distribution width (RBC) [Ratio] 13.2 % Normal 11.6-14.6 [facility] Comment on above: Performed By: #### L 500.2500, L100.0500 ####[facility] [address] [place], [address] Hematocrit (Bld) [Volume fraction] 36.4 % Low 37-47 [facility] Comment on above: Performed By: #### L 500.2500, L100.0500 ####[facility] [address] [place], [address] Hemoglobin (Bld) [Mass/Vol] 11.3 g/dL Low 12.0-15.0 [facility] Comment on above: Performed By: #### L 500.2500, L100.0500 ####[facility] [address] [place], [address] MCH (RBC) [Entitic mass] 30.0 pg Normal 27.0-32.0 [facility] Comment on above: Performed By: #### L 500.2500, L100.0500 ####[facility] [address] [place], [address] MCHC (RBC) [Mass/Vol] 31.0 g/dL Low 32-36 [facility] Comment on above: Performed By: #### L 500.2500, L100.0500 ####[facility] [address] [place], [address] MCV (RBC) [Entitic vol] 96.6 fL Normal 81-99 [facility] Comment on above: Performed By: #### L 500.2500, L100.0500 ####[facility] [address] [place], [address] Platelet mean volume (Bld) [Entitic vol] 9.6 fL Normal 6.2-12.0 [facility] Comment on above: Performed By: #### L 500.2500, L100.0500 ####[facility] [address] [place], [address] Platelets (Bld) [#/Vol] 297 10*3/uL Normal 150-450 [facility] Comment on above: Performed By: #### L 500.2500, L100.0500 ####[facility] [address] [place], [address] RBC (Bld) [#/Vol] 3.77 10*6/uL Low 4.2-5.4 [facility] Comment on above: Performed By: #### L 500.2500, L100.0500 ####[facility] [address] [place], [address] RDW SD 46.7 fl High 35.1-43.9 [facility] Comment on above: Performed By: #### L 500.2500, L100.0500 ####[facility] [address] [place], [address] WBC (Bld) [#/Vol] 8.5 10*3/uL Normal 4.4-11.0 [facility] Comment on above: Performed By: #### L 500.2500, L100.0500 ####[facility] [address] [place], [address] Calcium [Mass/Vol]Ordered By : Livan Love on 05-24-2024 Serum or plasma calcium measurement (mass/volume) 9.3 mg/dL 8.5-10.1 [facility] Carbon dioxide measurementOr dered By: Livan Love on 05-24-2024 Carbon dioxide measurement 27.0 mmol/L 21.0-32.0 [facility] Chloride measurementOrdered By: Livansofia Love on 05-24-2024 Chloride measurement 103 mmol/L 98-107 [facility] Creatinine [Mass/Vol]Ordered By: Livan Love on 05-24-2024 Serum or plasma creatinine measurement (mass/volume) 3.78 mg/dL High 0.55-1.02 [facility] Erythrocyte distribution wid th (RBC) [Entitic vol]Ordered By: Livansofia Love on 05-24-2024 Erythrocyte distribution width standard deviation 46.7 fl High 35.1-43.9 [facility] Erythrocyte distribution wid th (RBC) [Ratio]Ordered By: Livan Love on 05-24-2024 Erythrocyte distribution width ratio 13.2 % 11.6-14.6 [facility] Estimated glomerular filtrat ion rate (GFR) AmericanOrdered By: Livan Love on 05-24-2024 Estimated glomerular filtration rate (GFR) 15 mL/min Low >60 [facility] Glomerular filtration rate ( GFR) estimationOrdered By: Livan Love on 05-24-2024 Glomerular filtration rate (GFR) estimation 13 mL/min Low >60 [facility] Glucose measurementOrdered B y: Livan Love on 05-24-2024 Glucose measurement 88 mg/dL 74-106 [facility] Hematocrit Auto (Bld) [Volum e fraction]Ordered By: Livan Love on 05-24-2024 Automated blood hematocrit (percentage) 36.4 % Low 37-47 [facility] Hemoglobin measurementOrdere d By: Livan Love on 05-24-2024 Hemoglobin measurement 11.3 g/dL Low 12.0-15.0 [facility] MCV (RBC) [Entitic vol]Order ed By: Livan Love on 05-24-2024 MCV (mean corpuscular volume) determination 96.6 fL 81-99 [facility] Mean corpuscular hemoglobin (MCH) determinationOrdered By: Livan Love on 05-24-2024 Mean corpuscular hemoglobin (MCH) determination 30.0 pg 27.0-32.0 [facility] Mean corpuscular hemoglobin concentration (MCHC) determinationOrdered By: Livan Love on 05-24-2024 Mean corpuscular hemoglobin concentration (MCHC) determination 31.0 g/dL Low 32-36 [facility] Mean platelet volume determi nationOrdered By: Livan Love on 05-24-2024 Mean platelet volume determination 9.6 fl 6.2-12.0 [facility] Platelet countOrdered By: Jose Love on 05-24-2024 Platelet count 297 K/mm3 150-450 [facility] Potassium measurementOrdered By: Livan Love on 05-24-2024 Potassium measurement 4.4 mmol/L 3.5-5.1 [facility] RBC Auto (Bld) [#/Vol]Ordere d By: Livan Love on 05-24-2024 Automated blood erythrocyte count 3.77 M/mm3 Low 4.2-5.4 [facility] Serum anion gap measurementO rdered By: Livan Love on 05-24-2024 Serum anion gap measurement 8 5-15 [facility] Sodium levelOrdered By: Livan Love on 05-24-2024 Sodium level 138 mmol/L 136-145 [facility] Surgery Visit Reporton 05-24 Surgery Visit Report Normal [facility] Urea nitrogen [Mass/Vol]Orde red By: Livan Love on 05-24-2024 Serum or plasma urea nitrogen measurement (mass/volume) 27 mg/dL High 7-18 [facility] White blood cell (WBC) count Ordered By: Livan Love on 05-24-2024 White blood cell (WBC) count 8.5 K/mm3 4.4-11.0 [facility] CNOVon 05-15-2024 CNOV Office Visit (INTMWS ) SNEHA CARDENAS ([id number]) 1955 F Date Time Provider Department 05/15/24 10:00 AM JULIO DRAPER INTMWS During your visit today, we recorded the following information about you: Temperature Pulse Respiration Blood pressure 98.1 degrees 94/minute 18/minute 140/62 Weight 66 kg Magali Casey MA 05/15/2024 9:58 AM Signed Julio Draper MD 05/16/2024 12:46 AM Signed This note was created using NoteWriter. Subjective Patient presents with: Recheck: 6 months [...] 7 AM, 11 AM and 4 pm avkpistenc-iuqipqas-rs rmoterol (BREZTRI) 160-9-4.8 mcg/actuation HFA aerosol inhaler [...] No edema. (more content not included)... Normal [facility] CT CHEST WO IVCONon 05-10-20 CT CHEST WO IVCON * * *Final Report* * * DATE OF EXAM: May 10 2024 1:23PM [facility] 0541 - CT CHEST WO IVCON / [...] adenopathy Continued follow-up in 6 months recommended. Offset Plate Maker: JING Transcribe Date/Time: May 16 2024 2:04P Dictated by : LU JAMESON MD This examination was interpreted and the report reviewed and electronically signed by: LU JAMESON MD on May 16 2024 2:17PM EST [id number] Normal [facility] Enteroscopy Study observatio n Narrativeon 02-20-2024 [facility] Radiology Study observation (narrative) [facility] Gas and Carbon monoxide pane l (BldV)on 02-20-2024 Base excess Calc (BldV) [Moles/Vol] 0 mmol/L 0 - 2 mmol/L [facility] Body temperature 98.6 [degF] [facility] Calcium.ionized (Bld) [Mass/Vol] 1.29 mmol/L 1.08 - 1.30 mmol/L [facility] Calcium.ionized adjusted to pH 7.4 (BldA) [Moles/Vol] 1.16 mmol/L 1.08 - 1.30 mmol/L [facility] Carboxyhemoglobin (BldV) [Mass fraction] 0.7 % 0.0 - 2.0 % [facility] Comment on above: Carboxyhemoglobin Re ference Range for Smokers: 2.0-8.0% CO2 (BldV) [Partial pressure] 74 mm[Hg] High [facility] Glucose [Mass/Vol] 90 mg/dL 60 - 105 mg/dL [facility] HCO3 (Bld) [Moles/Vol] 29 mmol/L High 24 - 28 mmol/L [facility] Hematocrit (Bld) [Volume fraction] 38.1 % 36.0 - 46.0 % [facility] Hemoglobin (Bld) [Mass/Vol] 12.4 g/dL 11.5 - 15.5 g/dL [facility] Interpretation and review of laboratory results Abnormal [facility] Lactate [Moles/Vol] 1.3 mmol/L 0.5 - 2. 2 mmol/L [facility] Liters 3 Liters/min [facility] Methemoglobin (Bld) [Mass fraction] 0.7 % 0.0 - 1.5 % [facility] O2 Therapy [place] = Nasal Cann[facility] Comment on above: 3L Oxygen (BldV) [Partial pressure] 16 mm[Hg] Low [facility] Oxygen saturation in Venous blood 13 % Low 60 - 85 % [facility] Oxyhemoglobin (BldV) [Mass fraction] 12 % Low 60 - 85 % [facility] pH (BldV) 7.22 [pH] Low 7.32 - 7.42 [facility] Potassium [Moles/Vol] 3.9 mmol/L 3.5 - 5.0 mmol/L [facility] Sodium [Moles/Vol] 142 mmol/L 136 - 144 mmol/L [facility] XR Chest PA and Lateralon IMPRESSION: Right lower lung mild opacity with right-sided small pleural effusion/thickening. Offset Plate Maker: [facility] Transcribe Date/Time: Nov 03 2023 12:41P Dictated by : JASVIR WESLEY MD This examination was interpreted and the report reviewed and electronically signed by: JASVIR WESLEY MD on Nov 03 2023 12:43PM [facility] DIVISION OF RADIOLOGY * * *Final Report* [...] Unremarkable. DIVISION OF RADIOLOGY Provider, Esme Heavenly [facility] - 11/03/2023 * * *Final Report* * [...] mild opacity with right-sided small pleural effusion/thickening. Offset Plate Maker: PSCB Transcribe Date/Time: Nov 03 2023 12:41P Dictated by : JASVIR WESLEY MD This examination was interpreted and the report reviewed and electronically signed by: JASVIR WESLEY MD on Nov 03 2023 12:43PM EST [facility] XR Chest PA and LateralOrder ed By: Cc Provider on 11-03-2023 [facility] XR Chest PA and Lateralon Radiology Study observation (narrative) [facility] CBC panel Auto (Bld)on 08-25 Erythrocyte distribution width (RBC) [Ratio] 15.9 % High 11.5 - 15.0 % [facility] Hematocrit (Bld) [Volume fraction] 25.8 % Low 36.0 - 46.0 % [facility] Hemoglobin (Bld) [Mass/Vol] 7.6 g/dL Low 11.5 - 15.5 g/dL [facility] MCH (RBC) [Entitic mass] 27.8 pg 26. 0 - 34.0 pg [facility] MCHC (RBC) [Mass/Vol] 29.5 g/dL Low 30.5 - 36.0 g/dL [facility] MCV (RBC) [Entitic vol] 94.5 fL 80.0 - 100.0 fL [facility] Nucleated RBC (Bld) [#/Vol] <0.01 k/uL [facility] Platelet mean volume (Bld) [Entitic vol] 10.0 fL 9.0 - 12.7 fL [facility] Platelets (Bld) [#/Vol] 371 10*3/uL 150 - 400 k/uL [facility] RBC (Bld) [#/Vol] 2.73 10*6/uL Low 3.90 - 5.2 0 m/uL [facility] WBC (Bld) [#/Vol] 10.97 10*3/uL 3.70 - 11.00 k/uL [facility] LIPID PANEL, NONFASTINGon Cholesterol [Mass/Vol] 142 mg/dL <200 mg/dL [facility] HDL Cholesterol, Nonfasting 56 mg/dL >39 mg/dL [facility] LDL Cholesterol, Nonfasting 61 mg/dL <100 mg/dL [facility] LDL/HDL Ratio, Nonfasting 1.09 mg/dL <2.54 mg/dL [facility] Non HDL Cholesterol, Nonfasting 86 mg/dL <130 mg/dL [facility] Total Chol/HDL Ratio, Nonfasting 2.54 mg/dL <5.10 mg/dL [facility] Triglycerides, Nonfasting 125 mg/dL <150 mg/dL [facility] VLDL Cholesterol, Nonfasting 25 mg/dL <30 mg/dL [facility] Progress Noteon 08-12-2023 Progress Note Subsequent visit yesterday [facility] 36on 07-23-2023 36 Name of caller requesting page: Justina Phone Number of caller: [phone] Facility requesting page: [facility] Reason for Page: Justina from [facility] for Patient Sneha Cardenas 11..56 re: Recent AR and history of A-FIB Provider paged: [facility] Name of paged provider: EVA Page Placed to #: S. Chat Time Page was sent or provider contacted: 7:33am Page Content: Justina from [employer] for Patient Sneha Cardenas 11.56 re: Recent AR and history of A-FIB Normal [facility] Serum or plasma trough vanco mycin levelOrdered By: Diana Santillan on 07-09-2023 Vancomycin trough [Mass/Vol] 21.0 ug/mL 5.0-15.0 [facility] Absolute lymphocyte countOrd ered By: Diana Santillan on 07-08-2023 Lymphocytes Auto (Unsp spec) [#/Vol] 0.94 10*3/uL 0.83-4.51 [facility] Basophil percentageOrdered B y: Diana Santillan on 07-08-2023 Basophil percentage 144 mg/dL 74-106 [facility] Basophil percentage 6.5 g/dL 6.4-8.2 [facility] Basophil percentage 0.50 mg/dL 0.20-1.00 [facility] Basophil percentage 142 mmol/L 136-145 [facility] Basophil percentage 4.1 mmol/L 3.5-5.1 [facility] Basophil percentage 102 mmol/L 98-107 [facility] Basophils (Bld) [#/Vol] 14.9 10*3/uL 4.4-11.0 [facility] Basophils (Bld) [#/Vol] 12.6 10*3/uL 2.0-7.7 [facility] Basophils/100 WBC (Bld) 85.0 % 47-70 [facility] Basophils/100 WBC (Bld) 0.1 % 0-5 [facility] Basophils/100 WBC (Bld) 0.5 % 0-1 [facility] Blood erythrocytes count (nu mber/volume)Ordered By: Diana Santillan on 07-08-2023 RBC (Bld) [#/Vol] 3.42 10*6/uL 4.2-5.4 [facility] Blood hemoglobin measurement (mass/volume)Ordered By: Diana Santillan on 07-08-2023 Hemoglobin (Bld) [Mass/Vol] 9.7 g/dL 12.0-15.0 [facility] Blood lymphocytes/100 leukoc ytesOrdered By: Diana Santillan on 07-08-2023 Lymphocytes/100 WBC (Bld) 6.3 % 19-41 [facility] Blood monocytes/100 leukocyt esOrdered By: Diana Santillan on 07-08-2023 Monocytes/100 WBC (Bld) 7.4 % 0-10 [facility] Blood platelet mean volumeOr dered By: Diana Santillan on 07-08-2023 Platelet mean volume (Bld) [Entitic vol] 9.6 fL 6.2-12.0 [facility] Determination of erythrocyte mean corpuscular volume (MCV)Ordered By: Diana Santillan on 07-08-2023 MCV (RBC) [Entitic vol] 95.6 fL 81-99 [facility] Hematocrit Auto (Bld) [Volum e fraction]Ordered By: Diana Santillan on 07-08-2023 Hematocrit (Bld) [Volume fraction] 32.7 % 37-47 [facility] MCHC Auto (RBC) [Mass/Vol]Or dered By: Diana Santillan on 07-08-2023 MCHC (RBC) [Mass/Vol] 29.7 g/dL 32-36 [facility] No Panel InformationOrdered By: Pao Weeks on 07-08-2023 Negative Negative [facility] No Panel InformationOrdered By: Diana Santillan on 07-08-2023 28.4 pg 27.0-32.0 [facility] 14.7 % 11.6-14.6 [facility] 51.5 fl 35.1-43.9 [facility] 0.700 % 0.0-0.9 [facility] 0 % 0-5 [facility] 43 mL/min >60 [facility] 53 mL/min >60 [facility] 36.26 ml/min [facility] 10.8 RATIO 10-20 [facility] 4.6 g/dL 2.2-4.2 [facility] 103 U/L 45-117 [facility] 8 U/L 13-56 [facility] 35.0 mmol/L 21.0-32.0 [facility] 1.37 uIU/mL 0.358-3.74 [facility] Platelets bldOrdered By: Darlene Santillan on 07-08-2023 Platelets (Bld) [#/Vol] 546 10*3/uL 150-450 [facility] Serum or plasma albumin rena urement (mass/volume)Ordered By: Diana Santillan on 07-08-2023 Albumin [Mass/Vol] 1.9 g/dL 3.2-5.0 [facility] Serum or plasma albumin/glob ulin mass ratioOrdered By: Diana Santillan on 07-08-2023 Albumin/Globulin [Mass ratio] 0.4 {ratio} 0.9-2.4 [facility] Serum or plasma calcium rena urement (mass/volume)Ordered By: Diana Santillan on 07-08-2023 Calcium [Mass/Vol] 9.1 mg/dL 8.5-10.1 [facility] Serum or plasma creatinine m easurement (mass/volume)Ordered By: Diana Santillan on 07-08-2023 Creatinine [Mass/Vol] 1.30 mg/dL 0.55-1.02 [facility] Serum or plasma urea nitroge n measurement (mass/volume)Ordered By: Diana Santillan on 07-08-2023 Urea nitrogen [Mass/Vol] 14 mg/dL 7-18 [facility] Thin prep Papanicolaou smear with manual screeningOrdered By: Diana Santillan on 07-08-2023 Thin prep Papanicolaou smear with manual screening 12 U/L 15-37 [facility] Thin prep Papanicolaou smear with manual screening 5 5-15 [facility] Absolute lymphocyte countOrd ered By: Zach Thomas on 07-07-2023 Lymphocytes Auto (Unsp spec) [#/Vol] 1.09 10*3/uL 0.83-4.51 [facility] Anaerobic cultureOrdered By: Zach Thomas on 07-07-2023 Bacteria identified Anaer cx Nom (Unsp spec) No anaerobic bacteria isolated. [facility] Bacterial body fluid culture Ordered By: Zach Thomas on 07-07-2023 Bacteria identified Cx Nom (Body fld) Culture exhibits no growth. [facility] Basophil percentageOrdered B y: Zach Thomas on 07-07-2023 Basophil percentage 0.8 mmol/L 0.4-2.0 [facility] Basophil percentage 114 mg/dL 74-106 [facility] Basophil percentage 137 mmol/L 136-145 [facility] Basophil percentage 2.7 mmol/L 3.5-5.1 [facility] Basophil percentage 94 mmol/L 98-107 [facility] Basophils (Bld) [#/Vol] 11.7 10*3/uL 4.4-11.0 [facility] Basophils (Bld) [#/Vol] 9.4 10*3/uL 2.0-7.7 [facility] Basophils/100 WBC (Bld) 80.3 % 47-70 [facility] Basophils/100 WBC (Bld) 0.1 % 0-5 [facility] Basophils/100 WBC (Bld) 0.3 % 0-1 [facility] Blood erythrocytes count (nu mber/volume)Ordered By: Zach Thomas on 07-07-2023 RBC (Bld) [#/Vol] 3.66 10*6/uL 4.2-5.4 [facility] Blood hemoglobin measurement (mass/volume)Ordered By: Zach Thomas on 07-07-2023 Hemoglobin (Bld) [Mass/Vol] 10.7 g/dL 12.0-15.0 [facility] Blood lymphocytes/100 leukoc ytesOrdered By: Zach Thomas on 07-07-2023 Lymphocytes/100 WBC (Bld) 9.3 % 19-41 [facility] Blood monocytes/100 leukocyt esOrdered By: Zach Thomas on 07-07-2023 Monocytes/100 WBC (Bld) 9.5 % 0-10 [facility] Blood platelet mean volumeOr dered By: Zach Thomas on 07-07-2023 Platelet mean volume (Bld) [Entitic vol] 9.2 fL 6.2-12.0 [facility] Body fluid appearanceOrdered By: Zach Thomas on 07-07-2023 Appearance (Body fld) CLEAR [facility] Body fluid color determinati onOrdered By: Zach Thomas on 07-07-2023 Color (Body fld) YELLOW [facility] Body fluid lactate dehydroge nase measurement (enzymatic activity/volume) by pyruvateOrdered By: Zach Thomas on 07-07-2023 LDH Pyruvate to lactate reaction (Body fld) [Catalytic activity/Vol] 876 Units/L Not Establ. [facility] Body fluid leukocytes count (number/volume)Ordered By: Zach Thomas on 07-07-2023 WBC (Body fld) [#/Vol] 9.292 10*3/uL [facility] Body fluid lymphocytes/100 l eukocytesOrdered By: Zach Thomas on 07-07-2023 Lymphocytes/100 WBC (Body fld) 31 % [facility] Body fluid macrophage countO rdered By: Zachmaged Thomas on 07-07-2023 Macrophages (Body fld) [#/Vol] 2 % [facility] Body fluid protein measureme nt (mass/volume)Ordered By: Zachmaged Thomas on 07-07-2023 Protein (Body fld) [Mass/Vol] 3.3 g/dL Not Establ. [facility] Body fluid segmented neutrop hils count (number/volume)Ordered By: Zach Thomas on 07-07-2023 Segmented neutrophils (Body fld) [#/Vol] 60 % [facility] Determination of erythrocyte mean corpuscular volume (MCV)Ordered By: Zach Thomas on 07-07-2023 MCV (RBC) [Entitic vol] 89.9 fL 81-99 [facility] Gram stain for investigation of transfusion reactionOrdered By: Zach Thomas on 07-07-2023 Microscopic observation Gram stain Nom (Unsp spec) [facility] Hematocrit Auto (Bld) [Volum e fraction]Ordered By: Zach Thomas on 07-07-2023 Hematocrit (Bld) [Volume fraction] 32.9 % 37-47 [facility] MCHC Auto (RBC) [Mass/Vol]Or dered By: Zach Thomas on 07-07-2023 MCHC (RBC) [Mass/Vol] 32.5 g/dL 32-36 [facility] Mononuclear cells Auto (Body fld) [#/Vol]Ordered By: Zach Thomas on 07-07-2023 Mononuclear cells (Body fld) [#/Vol] 0.797 10*3/uL [facility] No Panel InformationOrdered By: Zach Thomas on 07-07-2023 No growth in 5 days. [facility] 2 /mm3 [facility] 91.4 % [facility] 8.6 % [facility] 8.495 10^3/uL [facility] May follow [facility] SEE COMMENT [facility] 7 mg/dL 40-70 [facility] Reviewed [facility] 29.2 pg 27.0-32.0 [facility] 14.4 % 11.6-14.6 [facility] 47.1 fl 35.1-43.9 [facility] 0.500 % 0.0-0.9 [facility] 0 % 0-5 [facility] 145 mL/min >60 [facility] 175 mL/min >60 [facility] 47.14 ml/min [facility] 15.3 RATIO 10-20 [facility] 13 pg/mL 3.0-54.0 [facility] 2.0 mg/dL 1.6-2.6 [facility] 37.0 mmol/L 21.0-32.0 [facility] Platelets bldOrdered By: Zach Thomas on 07-07-2023 Platelets (Bld) [#/Vol] 553 10*3/uL 150-450 [facility] Serum or plasma calcium rena urement (mass/volume)Ordered By: Zach Thomas on 07-07-2023 Calcium [Mass/Vol] 9.5 mg/dL 8.5-10.1 [facility] Serum or plasma creatinine m easurement (mass/volume)Ordered By: Zach Thomas on 07-07-2023 Creatinine [Mass/Vol] 0.46 mg/dL 0.55-1.02 [facility] Serum or plasma urea nitroge n measurement (mass/volume)Ordered By: Zach Thomas on 07-07-2023 Urea nitrogen [Mass/Vol] 7 mg/dL 7-18 [facility] Specimen source identificati on of body fluidOrdered By: Zach Thomas on 07-07-2023 Specimen source Nom (Body fld) THORACENTESIS [facility] Thin prep Papanicolaou smear with manual screeningOrdered By: Zach Thomas on 07-07-2023 Thin prep Papanicolaou smear with manual screening 7 % [facility] Thin prep Papanicolaou smear with manual screening 6 5-15 [facility] Total cell countOrdered By: Zach Thomas on 07-07-2023 Cells counted Molgen (Bld/Tiss) [#] 9.308 10^3/ul 0.000-0.000 [facility] XR Chest PA and Lateralon IMPRESSION: Right-sided small pleural effusion with associated lower lung atelectasis/pulmonary infiltrates. Offset Plate Maker: PSCB Transcribe Date/Time: Jul 06 2023 2:57P Dictated by : JASVIR WESLEY MD This examination was interpreted and the report reviewed and electronically signed by: JASVIR WESLEY MD on Jul 06 2023 2:59PM [facility] DIVISION OF RADIOLOGY * * *Final Report* [...] the right shoulder. DIVISION OF RADIOLOGY [facility] * * *Final Report* * [...] effusion with associated lower lung atelectasis/pulmonary infiltrates. Offset Plate Maker: PSCB Transcribe Date/Time: Jul 06 2023 2:57P Dictated by : JASVIR WESLEY MD This examination was interpreted and the report reviewed and electronically signed by: JASVIR WESLEY MD on Jul 06 2023 2:59PM EST [facility] XR Chest PA and LateralOrder ed By: [facility] Provider on 07-06-2023 [facility] Absolute lymphocyte countOrd ered By: Jaime Perdomo on 07-05-2023 Lymphocytes Auto (Unsp spec) [#/Vol] 1.29 10*3/uL 0.83-4.51 [facility] Basophil percentageOrdered B y: Jaime Perdmoo on 07-05-2023 Basophil percentage 0-5 SEEN /hpf 0-5 [facility] Basophil percentage 106 mg/dL 74-106 [facility] Basophil percentage 7.3 g/dL 6.4-8.2 [facility] Basophil percentage 0.40 mg/dL 0.20-1.00 [facility] Basophil percentage 140 mmol/L 136-145 [facility] Basophil percentage 2.9 mmol/L 3.5-5.1 [facility] Basophil percentage 97 mmol/L 98-107 [facility] Basophils (Bld) [#/Vol] 9.6 10*3/uL 4.4-11.0 [facility] Basophils (Bld) [#/Vol] 7.3 10*3/uL 2.0-7.7 [facility] Basophils/100 WBC (Bld) 0.4 % 0-1 [facility] Basophils/100 WBC (Bld) 75.8 % 47-70 [facility] Basophils/100 WBC (Bld) 0.5 % 0-5 [facility] Bilirubin [Mass/Vol] 0.40 mg/dL 0.20-1.00 [facility] Comment on above: For patients on eltr ombopag therapy, use of Dimension Campbell TBIL is not recommended. Chloride [Moles/Vol] 97 mmol/L 98-107 [facility] Eosinophils/100 WBC (Bld) 0.5 % 0-5 [facility] Glucose [Mass/Vol] 106 mg/dL 74-106 [facility] Comment on above: Fasting Glucose resu lt from 100 to 125 mg/dL suggests IMPAIRED HOMEOSTASIS per A.D.A. criteria. Neutrophils (Bld) [#/Vol] 7.3 10*3/uL 2.0-7.7 [facility] Neutrophils/100 WBC (Bld) 75.8 % 47-70 [facility] Potassium [Moles/Vol] 2.9 mmol/L 3.5-5.1 [facility] Protein [Mass/Vol] 7.3 g/dL 6.4-8.2 [facility] Sodium [Moles/Vol] 140 mmol/L 136-145 [facility] WBC (Bld) [#/Vol] 9.6 10*3/uL 4.4-11.0 [facility] Bilirubin Test strip Ql (U)O rdered By: Jaime Perdomo on 07-05-2023 Bilirubin Ql (U) Negative Negative [facility] Blood erythrocytes count (nu mber/volume)Ordered By: Jaime Perdomo on 07-05-2023 RBC (Bld) [#/Vol] 3.84 10*6/uL 4.2-5.4 [facility] Blood hemoglobin measurement (mass/volume)Ordered By: Jaime Perdomo on 07-05-2023 Hemoglobin (Bld) [Mass/Vol] 11.0 g/dL 12.0-15.0 [facility] Blood lymphocytes/100 leukoc ytesOrdered By: Jaime Perdomo on 07-05-2023 Lymphocytes/100 WBC (Bld) 13.4 % 19-41 [facility] Blood monocytes/100 leukocyt esOrdered By: Jaime Perdomo on 07-05-2023 Monocytes/100 WBC (Bld) 9.2 % 0-10 [facility] Blood platelet mean volumeOr dered By: Jaime Perdomo on 07-05-2023 Platelet mean volume (Bld) [Entitic vol] 9.3 fL 6.2-12.0 [facility] Determination of erythrocyte mean corpuscular volume (MCV)Ordered By: Jaime Perdomo on 07-05-2023 MCV (RBC) [Entitic vol] 90.4 fL 81-99 [facility] Hematocrit Auto (Bld) [Volum e fraction]Ordered By: Jaime Perdomo on 07-05-2023 Hematocrit (Bld) [Volume fraction] 34.7 % 37-47 [facility] INR in Blood by Coagulation assayOrdered By: Jaime Perdomo on 07-05-2023 INR Coag (Bld) [Relative time] 1.1 {INR} [facility] Ketones Test strip Ql (U)Ord ered By: Jaime Perdomo on 07-05-2023 Ketones Ql (U) 15 mg/dl Negative [facility] Laboratory - Chemistry and C hemistry - challengeOrdered By: Jaime Perdomo on 07-05-2023 ALP [Catalytic activity/Vol] 117 U/L 45-117 [facility] ALT [Catalytic activity/Vol] 10 U/L 13-56 [facility] CO2 [Moles/Vol] 35.0 mmol/L 21.0-32.0 [facility] Globulin (S) [Mass/Vol] 4.9 g/dL 2.2-4.2 [facility] Lipase [Catalytic activity/Vol] 24 U/L 13-75 [facility] Comment on above: Please note:LIPASE r evised reference range effective 22. New Lipase methodology. Expected to produce lower values than the previous assay method. NEW Reference Range: 13 - 75 U/L Urea nitrogen/Creatinine [Mass ratio] 11.9 mg/mg 10-20 [facility] Laboratory - CoagulationOrde red By: Jaime Perdomo on 07-05-2023 PT Coag (PPP) [Time] 14.5 s 11.7-14.9 [facility] Laboratory - Hematology and Cell countsOrdered By: Jaime Perdomo on 07-05-2023 Erythrocyte distribution width (RBC) [Entitic vol] 47.7 fL 35.1-43.9 [facility] Erythrocyte distribution width (RBC) [Ratio] 14.5 % 11.6-14.6 [facility] Immature granulocytes/100 WBC (Bld) 0.700 % 0.0-0.9 [facility] Comment on above: IG% - Immature Granu locytes (promyelocytes, myelocytes and metamyelocytes) > 1% indicates that a LEFT SHIFT is Present. MCH (RBC) [Entitic mass] 28.6 pg 27.0-32.0 [facility] Nucleated RBC/100 WBC (Bld) [Ratio] 0 % 0-5 [facility] MCHC Auto (RBC) [Mass/Vol]Or dered By: Jaime Perdomo on 07-05-2023 MCHC (RBC) [Mass/Vol] 31.7 g/dL 32-36 [facility] Mucus LM Ql (Urine sed)Order ed By: Jaime Perdomo on 07-05-2023 Mucus Ql (Urine sed) 1+ /hpf [facility] Nitrite Test strip Ql (U)Ord ered By: Jaime Perdomo on 07-05-2023 Nitrite Ql (U) Negative Negative [facility] No Panel InformationOrdered By: Jaime Perdomo on 07-05-2023 14.5 SECONDS 11.7-14.9 [facility] Estimated Creatinine Clearance Calc 47.14 ml/min [facility] Estimated GFR (MDRD) Amer 156 mL/min >60 [facility] Comment on above: GFR Calc Estimated GFR (MDRD) Non-Af Amer 129 mL/min >60 [facility] Comment on above: Non- GFR Calc 28.6 pg 27.0-32.0 [facility] 14.5 % 11.6-14.6 [facility] 47.7 fl 35.1-43.9 [facility] 0.700 % 0.0-0.9 [facility] 0 % 0-5 [facility] 129 mL/min >60 [facility] 156 mL/min >60 [facility] 47.14 ml/min [facility] 11.9 RATIO 10-20 [facility] 4.9 g/dL 2.2-4.2 [facility] 24 U/L 13-75 [facility] 117 U/L 45-117 [facility] 10 U/L 13-56 [facility] 35.0 mmol/L 21.0-32.0 [facility] Platelets bldOrdered By: Steven Perdomo on 07-05-2023 Platelets (Bld) [#/Vol] 578 10*3/uL 150-450 [facility] Protein Test strip Ql (U)Ord ered By: Jaime Perdomo on 07-05-2023 Protein Ql (U) 30 mg/dl Negative [facility] Serum or plasma albumin rena urement (mass/volume)Ordered By: Jaime Perdomo on 07-05-2023 Albumin [Mass/Vol] 2.4 g/dL 3.2-5.0 [facility] Serum or plasma albumin/glob ulin mass ratioOrdered By: Jaime Perdomo on 07-05-2023 Albumin/Globulin [Mass ratio] 0.5 {ratio} 0.9-2.4 [facility] Serum or plasma calcium rena urement (mass/volume)Ordered By: Jaime Perdomo on 07-05-2023 Calcium [Mass/Vol] 8.8 mg/dL 8.5-10.1 [facility] Serum or plasma creatinine m easurement (mass/volume)Ordered By: Jaime Perdomo on 07-05-2023 Creatinine [Mass/Vol] 0.50 mg/dL 0.55-1.02 [facility] Comment on above: The validity of the calculated GFR & GFRAA in patients over 70 years has not been determined. Clinical correlation is essential. Serum or plasma urea nitroge n measurement (mass/volume)Ordered By: Jaime Perdomo on 07-05-2023 Urea nitrogen [Mass/Vol] 6 mg/dL 7-18 [facility] Squamous epithelial cells de tection in urine sediment by light microscopyOrdered By: Jaime Perdomo on 07-05-2023 Epithelial cells.squamous LM Ql (Urine sed) 0-5 SEEN /hpf 5-10 [facility] Thin prep Papanicolaou smear with manual screeningOrdered By: Jaime Perdomo on 07-05-2023 Thin prep Papanicolaou smear with manual screening 12 U/L 15-37 [facility] Thin prep Papanicolaou smear with manual screening 8 5-15 [facility] Urine blood detectionOrdered By: Jaime Perdomo on 07-05-2023 RBC Ql (U) 150 /ul Negative [facility] RBC Ql (U) 0-5 SEEN /hpf 0-5 [facility] Urine clarityOrdered By: Steven Perdomo on 07-05-2023 Clarity (U) Clear Clear [facility] Urine color determinationOrd ered By: Jaime Perdomo on 07-05-2023 Color (U) Yellow Yellow [facility] Urine glucose detectionOrder ed By: Jaime Perdomo on 07-05-2023 Glucose Ql (U) Normal mg/dl Normal [facility] Urine leukocyte esterase det ection by dipstickOrdered By: Jaime Perdomo on 07-05-2023 Leukocyte esterase Test strip Ql (U) Negative Negative [facility] Urine pHOrdered By: Jaime hinson on 07-05-2023 pH (U) 6.0 [pH] 5.0 - 8.0 [facility] Urine sediment bacteria coun t by microscopy (number/high power field)Ordered By: Jaime Perdomo on 07-05-2023 Bacteria LM.HPF (Urine sed) [#/Area] 0 /[HPF] None Seen [facility] Urine specific gravity measu rementOrdered By: Jaime Perdomo on 07-05-2023 Specific gravity (U) [Rel density] 1.010 1.002-1.030 [facility] Urobilinogen Auto test strip Ql (U)Ordered By: Jaime Perdomo on 07-05-2023 Urobilinogen Ql (U) Normal mg/dl Normal [facility] XR Chest PA and Lateralon Radiology Study observation (narrative) [facility] m[facility] Absolute lymphocyte countOrd ered By: Td Pillai on 06-23-2023 Lymphocytes Auto (Unsp spec) [#/Vol] 1.25 10*3/uL 0.83-4.51 [facility] Basophil percentageOrdered B y: Td Pillai on 06-23-2023 Basophil percentage 74 mg/dL 74-106 [facility] Basophil percentage 139 mmol/L 136-145 [facility] Basophil percentage 3.4 mmol/L 3.5-5.1 [facility] Basophil percentage 102 mmol/L 98-107 [facility] Basophils (Bld) [#/Vol] 8.0 10*3/uL 4.4-11.0 [facility] Basophils (Bld) [#/Vol] 5.6 10*3/uL 2.0-7.7 [facility] Basophils/100 WBC (Bld) 0.5 % 0-1 [facility] Basophils/100 WBC (Bld) 70.0 % 47-70 [facility] Basophils/100 WBC (Bld) 6.5 % 0-5 [facility] Chloride [Moles/Vol] 102 mmol/L 98-107 [facility] Eosinophils/100 WBC (Bld) 6.5 % 0-5 [facility] Glucose [Mass/Vol] 74 mg/dL 74-106 [facility] Neutrophils (Bld) [#/Vol] 5.6 10*3/uL 2.0-7.7 [facility] Neutrophils/100 WBC (Bld) 70.0 % 47-70 [facility] Potassium [Moles/Vol] 3.4 mmol/L 3.5-5.1 [facility] Sodium [Moles/Vol] 139 mmol/L 136-145 [facility] WBC (Bld) [#/Vol] 8.0 10*3/uL 4.4-11.0 [facility] Blood erythrocytes count (nu mber/volume)Ordered By: Td Pillai on 06-23-2023 RBC (Bld) [#/Vol] 3.44 10*6/uL 4.2-5.4 [facility] Blood hemoglobin measurement (mass/volume)Ordered By: Td Pillai on 06-23-2023 Hemoglobin (Bld) [Mass/Vol] 10.0 g/dL 12.0-15.0 [facility] Blood lymphocytes/100 leukoc ytesOrdered By: Td Pillai on 06-23-2023 Lymphocytes/100 WBC (Bld) 15.7 % 19-41 [facility] Blood monocytes/100 leukocyt esOrdered By: Td Pillai on 06-23-2023 Monocytes/100 WBC (Bld) 7.0 % 0-10 [facility] Blood platelet mean volumeOr dered By: Td Pillai on 06-23-2023 Platelet mean volume (Bld) [Entitic vol] 9.7 fL 6.2-12.0 [facility] Determination of erythrocyte mean corpuscular volume (MCV)Ordered By: Td Pillai on 06-23-2023 MCV (RBC) [Entitic vol] 93.3 fL 81-99 [facility] Hematocrit Auto (Bld) [Volum e fraction]Ordered By: Td Pillai on 06-23-2023 Hematocrit (Bld) [Volume fraction] 32.1 % 37-47 [facility] Laboratory - Chemistry and C hemistry - challengeOrdered By: Td Pillai on 06-23-2023 CO2 [Moles/Vol] 35.0 mmol/L 21.0-32.0 [facility] Urea nitrogen/Creatinine [Mass ratio] 12.4 mg/mg 10-20 [facility] Laboratory - Hematology and Cell countsOrdered By: Td Pillai on 06-23-2023 Erythrocyte distribution width (RBC) [Entitic vol] 53.4 fL 35.1-43.9 [facility] Erythrocyte distribution width (RBC) [Ratio] 16.3 % 11.6-14.6 [facility] Immature granulocytes/100 WBC (Bld) 0.300 % 0.0-0.9 [facility] Comment on above: IG% - Immature Granu locytes (promyelocytes, myelocytes and metamyelocytes) > 1% indicates that a LEFT SHIFT is Present. MCH (RBC) [Entitic mass] 29.1 pg 27.0-32.0 [facility] Nucleated RBC/100 WBC (Bld) [Ratio] 0 % 0-5 [facility] MCHC Auto (RBC) [Mass/Vol]Or dered By: Td Pillai on 06-23-2023 MCHC (RBC) [Mass/Vol] 31.2 g/dL 32-36 [facility] No Panel InformationOrdered By: Td Pillai on 06-23-2023 Estimated Creatinine Clearance Calc 47.14 ml/min [facility] Estimated GFR (MDRD) Amer 138 mL/min >60 [facility] Comment on above: GFR Calc Estimated GFR (MDRD) Non-Af Amer 114 mL/min >60 [facility] Comment on above: Non- GFR Calc 29.1 pg 27.0-32.0 [facility] 16.3 % 11.6-14.6 [facility] 53.4 fl 35.1-43.9 [facility] 0.300 % 0.0-0.9 [facility] 0 % 0-5 [facility] 114 mL/min >60 [facility] 138 mL/min >60 [facility] 47.14 ml/min [facility] 12.4 RATIO 10-20 [facility] 35.0 mmol/L 21.0-32.0 [facility] Platelets bldOrdered By: Madelaine Pillai on 06-23-2023 Platelets (Bld) [#/Vol] 226 10*3/uL 150-450 [facility] Serum or plasma calcium rena urement (mass/volume)Ordered By: Td Pillai on 06-23-2023 Calcium [Mass/Vol] 8.3 mg/dL 8.5-10.1 [facility] Serum or plasma creatinine m easurement (mass/volume)Ordered By: Td Pillai on 06-23-2023 Creatinine [Mass/Vol] 0.56 mg/dL 0.55-1.02 [facility] Comment on above: The validity of the calculated GFR & GFRAA in patients over 70 years has not been determined. Clinical correlation is essential. Serum or plasma urea nitroge n measurement (mass/volume)Ordered By: Td Pillai on 06-23-2023 Urea nitrogen [Mass/Vol] 7 mg/dL 7-18 [facility] Thin prep Papanicolaou smear with manual screeningOrdered By: Td Pillai on 06-23-2023 Thin prep Papanicolaou smear with manual screening 2 5-15 [facility] INR in Blood by Coagulation assayOrdered By: Livan Estrada on 06-21-2023 INR Coag (Bld) [Relative time] 1.1 {INR} [facility] Laboratory - CoagulationOrde red By: Livan Estrada on 06-21-2023 aPTT Coag (Bld) [Time] 23.4 s 24.1-36.2 [facility] PT Coag (PPP) [Time] 14.5 s 11.7-14.9 [facility] No Panel InformationOrdered By: Livan Natalie on 06-21-2023 14.5 SECONDS 11.7-14.9 [facility] 23.4 Seconds 24.1-36.2 [facility] Absolute lymphocyte countOrd ered By: Guido Maguirejanet on 06-20-2023 Lymphocytes Auto (Unsp spec) [#/Vol] 2.72 10*3/uL 0.83-4.51 [facility] Bacteria identified Cx Nom ( U)Ordered By: Guido Oliveira on 06-20-2023 Culture, urine Yeast, not Carmel albicans [facility] Basophil percentageOrdered B y: Guido Oliveira on 06-20-2023 Basophil percentage 0-5 SEEN /hpf 0-5 [facility] Basophil percentage 1.9 mmol/L 0.4-2.0 [facility] Lactate [Moles/Vol] 1.9 mmol/L 0.4-2.0 [facility] Basophil percentage 5.0 g/dL 6.4-8.2 [facility] Basophil percentage 0.30 mg/dL 0.20-1.00 [facility] Basophils/100 WBC (Bld) 0.5 % 0-1 [facility] Bilirubin [Mass/Vol] 0.30 mg/dL 0.20-1.00 [facility] Comment on above: For patients on eltr ombopag therapy, use of Dimension Campbell TBIL is not recommended. Chloride [Moles/Vol] 103 mmol/L 98-107 [facility] Eosinophils/100 WBC (Bld) 1.8 % 0-5 [facility] Glucose [Mass/Vol] 114 mg/dL 74-106 [facility] Comment on above: Fasting Glucose resu lt from 100 to 125 mg/dL suggests IMPAIRED HOMEOSTASIS per A.D.A. criteria. Lactate [Moles/Vol] 2.2 mmol/L 0.4-2.0 [facility] Comment on above: Critical Result(s) C alled at: 11:15:43 06/20/2023 by: Gayatri Armstrong. Results read back by same. Neutrophils (Bld) [#/Vol] 11.1 10*3/uL 2.0-7.7 [facility] Neutrophils/100 WBC (Bld) 71.4 % 47-70 [facility] Potassium [Moles/Vol] 3.4 mmol/L 3.5-5.1 [facility] Protein [Mass/Vol] 5.0 g/dL 6.4-8.2 [facility] Sodium [Moles/Vol] 140 mmol/L 136-145 [facility] WBC (Bld) [#/Vol] 15.5 10*3/uL 4.4-11.0 [facility] Bilirubin Test strip Ql (U)O rdered By: Guido Oliveira on 06-20-2023 Bilirubin Ql (U) Negative Negative [facility] Blood erythrocytes count (nu mber/volume)Ordered By: Guido Oliveira on 06-20-2023 RBC (Bld) [#/Vol] 1.55 10*6/uL 4.2-5.4 [facility] Blood hemoglobin measurement (mass/volume)Ordered By: Guido Oliveira on 06-20-2023 Hemoglobin (Bld) [Mass/Vol] 4.6 g/dL 12.0-15.0 [facility] Comment on above: CRITICAL VALUE VERIF IED. CALLED TO KAROL ROCKWELL06/20/23 1049 Brigida Trejo.RESULTS READ BACK BY SAME . Blood lymphocytes/100 leukoc ytesOrdered By: Guido Oliveira on 06-20-2023 Lymphocytes/100 WBC (Bld) 17.6 % 19-41 [facility] Blood monocytes/100 leukocyt esOrdered By: Guido Oliveira on 06-20-2023 Monocytes/100 WBC (Bld) 7.9 % 0-10 [facility] Blood platelet mean volumeOr dered By: Guido Oliveira on 06-20-2023 Platelet mean volume (Bld) [Entitic vol] 10.0 fL 6.2-12.0 [facility] Culture, urineOrdered By: Pasquale Oliveira on 06-20-2023 Bacteria identified Cx Nom (U) Yeast, not Carmel albicans [facility] Determination of erythrocyte mean corpuscular volume (MCV)Ordered By: Guido Oliveira on 12-18-2023 MCV (RBC) [Entitic vol] 98.7 fL 81-99 [facility] Comment on above: Delta: 91.4 on 06/16 Hematocrit Auto (Bld) [Volum e fraction]Ordered By: Guido Oliveira on 06-20-2023 Hematocrit (Bld) [Volume fraction] 15.3 % 37-47 [facility] Ketones Test strip Ql (U)Ord ered By: Guido Oliveira on 06-20-2023 Ketones Ql (U) Negative Negative [facility] Laboratory - Chemistry and C hemistry - challengeOrdered By: Ramon Antunez on 06-20-2023 HCG ( test) Ql (U) Negative [facility] Comment on above: Very dilute urine sp ecimens, as indicated by a low specificgravity, may not contain contact center representative levels of hCG. If is still suspected, a first morning urinespecimen should be collected 48 hours later and tested. Laboratory - Chemistry and C hemistry - challengeOrdered By: Guido Oliveira on 06-20-2023 ALP [Catalytic activity/Vol] 54 U/L 45-117 [facility] ALT [Catalytic activity/Vol] 12 U/L 13-56 [facility] CO2 [Moles/Vol] 32.0 mmol/L 21.0-32.0 [facility] Globulin (S) [Mass/Vol] 3.0 g/dL 2.2-4.2 W [facility] Urea nitrogen/Creatinine [Mass ratio] 53.0 mg/mg 10-20 [facility] Laboratory - Hematology and Cell countsOrdered By: Guido Oliveira on 06-20-2023 Erythrocyte distribution width (RBC) [Entitic vol] 52.9 fL 35.1-43.9 [facility] Erythrocyte distribution width (RBC) [Ratio] 15.5 % 11.6-14.6 [facility] Immature granulocytes/100 WBC (Bld) 0.800 % 0.0-0.9 [facility] Comment on above: IG% - Immature Granu locytes (promyelocytes, myelocytes and metamyelocytes) > 1% indicates that a LEFT SHIFT is Present. MCH (RBC) [Entitic mass] 29.7 pg 27.0-32.0 [facility] Nucleated RBC/100 WBC (Bld) [Ratio] 0 % 0-5 [facility] Laboratory - Microbiology an d Antimicrobial susceptibilityOrdered By: Guido Oliveira on 06-20-2023 Bacteria identified Cx Nom (Bld) No growth in 5 days. [facility] MCHC Auto (RBC) [Mass/Vol]Or dered By: Guido Oliveira on 06-20-2023 MCHC (RBC) [Mass/Vol] 30.1 g/dL 32-36 [facility] Mucus LM Ql (Urine sed)Order ed By: Guido Oliveira on 06-20-2023 Mucus Ql (Urine sed) 0 SEEN /hpf [facility] Nitrite Test strip Ql (U)Ord ered By: Guido Oliveira on 06-20-2023 Nitrite Ql (U) Negative Negative [facility] No Panel InformationOrdered By: Ramon Antunez on 06-20-2023 Negative [facility] No Panel InformationOrdered By: Guido Oliveira on 06-20-2023 Estimated Creatinine Clearance Calc 49.12 ml/min [facility] Estimated GFR (MDRD) Amer 132 mL/min >60 [facility] Comment on above: GFR Calc Estimated GFR (MDRD) Non-Af Amer 109 mL/min >60 [facility] Comment on above: Non- GFR Calc Troponin I High Sensitivity 8 pg/mL 3.0-54.0 [facility] Comment on above: Please Note: New Vijaya t Units and Gender Specific Reference Ranges. For more information see Policy Stat Procedure [place] High Sensitivity Troponin (TNIH) and attachments. 3.0 g/dL 2.2-4.2 [facility] 8 pg/mL 3.0-54.0 [facility] 54 U/L 45-117 [facility] 12 U/L 13-56 [facility] No growth in 5 days. [facility] Platelets bldOrdered By: Marcela Oliveira on 06-20-2023 Platelets (Bld) [#/Vol] 459 10*3/uL 150-450 [facility] Protein Test strip Ql (U)Ord ered By: Guido Oliveira on 06-20-2023 Protein Ql (U) Negative Negative [facility] Review by pathologistOrdered By: Guido Oliveira on 06-20-2023 Pathologist review Darnell (Unsp spec) [Interp] Lulu minor [facility] Pathologist review Darnell (Unsp spec) [Interp] Reviewed [facility] Comment on above: Previous reported re sult: Lulu minor Edited by: MORRO on 06/20/23:7758Neutrophilic leukocytosis.SEVERE Normocytic anemia.Clinical correlation necessary.Patrice Quinones M.D. 06/20/23 AMENDED REPORT 06/20/23 7523 PATH REV previously reported as: Lulu minor Serum or plasma albumin rena urement (mass/volume)Ordered By: Guido Oliveira on 06-20-2023 Albumin [Mass/Vol] 2.0 g/dL 3.2-5.0 [facility] Serum or plasma albumin/glob ulin mass ratioOrdered By: Guido Oliveira on 06-20-2023 Albumin/Globulin [Mass ratio] 0.7 {ratio} 0.9-2.4 [facility] Serum or plasma calcium rena urement (mass/volume)Ordered By: Guido Oliveira on 06-20-2023 Calcium [Mass/Vol] 7.6 mg/dL 8.5-10.1 [facility] Serum or plasma creatinine m easurement (mass/volume)Ordered By: Guido Oliveira on 06-20-2023 Creatinine [Mass/Vol] 0.58 mg/dL 0.55-1.02 [facility] Comment on above: The validity of the calculated GFR & GFRAA in patients over 70 years has not been determined. Clinical correlation is essential. Serum or plasma urea nitroge n measurement (mass/volume)Ordered By: Guido Oliveira on 06-20-2023 Urea nitrogen [Mass/Vol] 31 mg/dL -18 [facility] Squamous epithelial cells de tection in urine sediment by light microscopyOrdered By: Guido Oliveira on 06-20-2023 Epithelial cells.squamous LM Ql (Urine sed) 10-25 SEEN /hpf 5-10 [facility] Thin prep Papanicolaou smear with manual screeningOrdered By: Guido Oliveira on 06-20-2023 Thin prep Papanicolaou smear with manual screening 13 U/L 15-37 [facility] Thin prep Papanicolaou smear with manual screening 5 5-15 [facility] Urine blood detectionOrdered By: Guido Oliveira on 06-20-2023 RBC Ql (U) Negative Negative [facility] RBC Ql (U) 0 SEEN /hpf 0-5 [facility] Urine clarityOrdered By: Marcela Oliveira on 06-20-2023 Clarity (U) Clear Clear [facility] Urine color determinationOrd ered By: Guido Oliveira on 06-20-2023 Color (U) Yellow Yellow [facility] Urine glucose detectionOrder ed By: Guido Oliveira on 06-20-2023 Glucose Ql (U) Normal mg/dl Normal [facility] Urine leukocyte esterase det ection by dipstickOrdered By: Guido Oliveira on 06-20-2023 Leukocyte esterase Test strip Ql (U) 25 /ul Negative [facility] Urine pHOrdered By: Guido hill on 06-20-2023 pH (U) 6.0 [pH] 5.0 - 8.0 [facility] Urine sediment bacteria coun t by microscopy (number/high power field)Ordered By: Guido Oliveira on 06-20-2023 Bacteria LM.HPF (Urine sed) [#/Area] 0 /[HPF] None Seen [facility] Urine sediment yeast count b y microscopy (number/high powered field)Ordered By: Guido Oliveira on 06-20-2023 Yeast LM.HPF (Urine sed) [#/Area] 1 /[HPF] None Seen [facility] Urine specific gravity measu rementOrdered By: Guido Oliveira on 06-20-2023 Specific gravity (U) [Rel density] 1.015 1.002-1.030 [facility] Urobilinogen Auto test strip Ql (U)Ordered By: Guido Oliveira on 06-20-2023 Urobilinogen Ql (U) Normal mg/dl Normal [facility] Basophil percentageOrdered B y: Robel Funk on 06-16-2023 Basophil percentage 87 mg/dL 74-106 [facility] Basophil percentage 140 mmol/L 136-145 [facility] Basophil percentage 4.3 mmol/L 3.5-5.1 [facility] Basophil percentage 103 mmol/L 98-107 [facility] Basophils (Bld) [#/Vol] 11.2 10*3/uL 4.4-11.0 [facility] Chloride [Moles/Vol] 103 mmol/L 98-107 [facility] Glucose [Mass/Vol] 87 mg/dL 74-106 [facility] Potassium [Moles/Vol] 4.3 mmol/L 3.5-5.1 [facility] Sodium [Moles/Vol] 140 mmol/L 136-145 [facility] WBC (Bld) [#/Vol] 11.2 10*3/uL 4.4-11.0 [facility] Blood erythrocytes count (nu mber/volume)Ordered By: Robel Funk on 06-16-2023 RBC (Bld) [#/Vol] 2.66 10*6/uL 4.2-5.4 [facility] Blood hemoglobin measurement (mass/volume)Ordered By: Robel Funk on 06-16-2023 Hemoglobin (Bld) [Mass/Vol] 7.6 g/dL 12.0-15.0 [facility] Blood platelet mean volumeOr dered By: Robel Funk on 06-16-2023 Platelet mean volume (Bld) [Entitic vol] 9.9 fL 6.2-12.0 [facility] Determination of erythrocyte mean corpuscular volume (MCV)Ordered By: Robel Funk on 06-16-2023 MCV (RBC) [Entitic vol] 91.4 fL 81-99 [facility] Hematocrit Auto (Bld) [Volum e fraction]Ordered By: Robel Funk on 06-16-2023 Hematocrit (Bld) [Volume fraction] 24.3 % 37-47 [facility] Laboratory - Chemistry and C hemistry - challengeOrdered By: Robel Funk on 06-16-2023 CO2 [Moles/Vol] 35.0 mmol/L 21.0-32.0 [facility] Urea nitrogen/Creatinine [Mass ratio] 23.8 mg/mg 10-20 [facility] Laboratory - Hematology and Cell countsOrdered By: Robel Funk on 06-16-2023 Erythrocyte distribution width (RBC) [Entitic vol] 45.5 fL 35.1-43.9 [facility] Erythrocyte distribution width (RBC) [Ratio] 14.2 % 11.6-14.6 [facility] MCH (RBC) [Entitic mass] 28.6 pg 27.0-32.0 [facility] MCHC Auto (RBC) [Mass/Vol]Or dered By: Robel Funk on 06-16-2023 MCHC (RBC) [Mass/Vol] 31.3 g/dL 32-36 [facility] No Panel InformationOrdered By: Robel Funk on 06-16-2023 Estimated Creatinine Clearance Calc 47.14 ml/min [facility] Estimated GFR (MDRD) Amer 157 mL/min >60 [facility] Comment on above: GFR Calc Estimated GFR (MDRD) Non-Af Amer 130 mL/min >60 [facility] Comment on above: Non- GFR Calc 28.6 pg 27.0-32.0 [facility] 14.2 % 11.6-14.6 [facility] 45.5 fl 35.1-43.9 [facility] 130 mL/min >60 [facility] 157 mL/min >60 [facility] 47.14 ml/min [facility] 23.8 RATIO 10-20 [facility] 35.0 mmol/L 21.0-32.0 [facility] Platelets bldOrdered By: Marcela Funk on 06-16-2023 Platelets (Bld) [#/Vol] 558 10*3/uL 150-450 [facility] Serum or plasma calcium rena urement (mass/volume)Ordered By: Robel Funk on 06-16-2023 Calcium [Mass/Vol] 8.2 mg/dL 8.5-10.1 [facility] Serum or plasma creatinine m easurement (mass/volume)Ordered By: Robel Funk on 06-16-2023 Creatinine [Mass/Vol] 0.50 mg/dL 0.55-1.02 [facility] Comment on above: The validity of the calculated GFR & GFRAA in patients over 70 years has not been determined. Clinical correlation is essential. Serum or plasma urea nitroge n measurement (mass/volume)Ordered By: Robel Funk on 06-16-2023 Urea nitrogen [Mass/Vol] 12 mg/dL 7-18 [facility] Thin prep Papanicolaou smear with manual screeningOrdered By: Robel Funk on 06-16-2023 Thin prep Papanicolaou smear with manual screening 2 5-15 [facility] Absolute lymphocyte countOrd ered By: Pao Weeks on 06-15-2023 Lymphocytes Auto (Unsp spec) [#/Vol] 2.10 10*3/uL 0.83-4.51 [facility] Basophil percentageOrdered B y: Pao Weeks on 06-15-2023 Basophils (Bld) [#/Vol] 9.2 10*3/uL 2.0-7.7 [facility] Basophils/100 WBC (Bld) 0.1 % 0-1 W [facility] Basophils/100 WBC (Bld) 68.7 % 47-70 [facility] Basophils/100 WBC (Bld) 3.8 % 0-5 W [facility] Eosinophils/100 WBC (Bld) 3.8 % 0-5 [facility] Neutrophils (Bld) [#/Vol] 9.2 10*3/uL 2.0-7.7 [facility] Neutrophils/100 WBC (Bld) 68.7 % 47-70 [facility] Blood lymphocytes/100 leukoc ytesOrdered By: Pao Weeks on 06-15-2023 Lymphocytes/100 WBC (Bld) 15.6 % 19-41 [facility] Blood monocytes/100 leukocyt esOrdered By: Pao Weeks on 06-15-2023 Monocytes/100 WBC (Bld) 10.7 % 0-10 W [facility] Laboratory - Hematology and Cell countsOrdered By: Pao Weeks on 06-15-2023 Immature granulocytes/100 WBC (Bld) 1.100 % 0.0-0.9 [facility] Comment on above: IG% - Immature Granu locytes (promyelocytes, myelocytes and metamyelocytes) > 1% indicates that a LEFT SHIFT is Present. Nucleated RBC/100 WBC (Bld) [Ratio] 0 % 0-5 [facility] No Panel InformationOrdered By: Pao Weeks on 06-15-2023 1.100 % 0.0-0.9 [facility] 0 % 0-5 [facility] Anaerobic cultureOrdered By: Kapil Doyle on 06-13-2023 Bacteria identified Anaer cx Nom (Unsp spec) No growth in 5 days. [facility] Assessment of wrist artery p atency prior to arterial punctureOrdered By: Robel Funk on 06-13-2023 Arterial patency Wrist artery --pre arterial puncture Positive [facility] Bacterial body fluid culture Ordered By: Kapil Doyle on 06-13-2023 Bacteria identified Cx Nom (Body fld) Culture exhibits no growth. [facility] Base excessOrdered By: Brittnee Funk on 06-13-2023 Base excess Calc (BldV) [Moles/Vol] 12 mmol/L -2-2 [facility] Basophil percentageOrdered B y: Robel Funk on 06-13-2023 Basophil percentage 35.4 mmol/L 22-26 [facility] Basophils/100 WBC (Bld) 96 % 95-99 [facility] Blood platelet adequacy dete ction by light microscopyOrdered By: Pao Weeks on 06-13-2023 Platelets LM Ql (Bld) [employer] ADEQ [facility] CO2 (BldA) [Partial pressure ]Ordered By: Robel Funk on 06-13-2023 CO2 (Bld) [Partial pressure] 48.2 mm[Hg] 35-45 [facility] Gram stain for investigation of transfusion reactionOrdered By: Kapil Doyle on 06-13-2023 Microscopic observation Gram stain Nom (Unsp spec) [facility] No Panel InformationOrdered By: Robel Funk on 06-13-2023 Blood Gas Oxygen Percent 4.0 [facility] Blood Gas Sample Site L Radial [facility] Blood Gas Specimen Type ART W [facility] Blood Gas Total CO2 37 mmol/L [facility] Blood Gas Vent Mode Not entered [facility] Oxygen Delivery Device Cannula [facility] ART [facility] L Radial [facility] Not entered [facility] Cannula [facility] 4.0 [facility] 37 mmol/L [facility] Oxygen (BldA) [Partial press ure]Ordered By: Robel Funk on 06-13-2023 Oxygen (Bld) [Partial pressure] 80 mmHG 75-100 [facility] Review by pathologistOrdered By: Pao Weeks on 12-11-2023 Pathologist review Darnell (Unsp spec) [Interp] Reviewed [facility] Comment on above: Previous reported re sult: Lulu minor Edited by: OMRRO on 06/14/23:729Neutrophilic leukocytosis with left shift.Normocytic anemia.Thrombocytosis.Clinical correlation necessary.Patrice Quinones M.D. 06/14/23 AMENDED REPORT 06/14/23729 PATH REV previously reported as: Lulu minor pH measurementOrdered By: Pasquale Funk on 06-13-2023 pH (Unsp spec) 7.47 [pH] 7.35-7.45 [facility] Laboratory - Chemistry and C hemistry - challengeOrdered By: Pao Weeks on 06-11-2023 Magnesium [Mass/Vol] 2.4 mg/dL 1.6-2.6 [facility] No Panel InformationOrdered By: Pao Weeks on 06-11-2023 2.4 mg/dL 1.6-2.6 [facility] No Panel InformationOrdered By: Td Pillai on 06-10-2023 Ionized Calcium 4.59 mg/dL 4.36-5.20 [facility] 4.59 mg/dL 4.36-5.20 [facility] Activated partial thrombopla stin time (aPTT) in platelet poor plasma by coagulation aOrdered By: Livan Estrada on 06-09-2023 aPTT Coag (PPP) [Time] 26.4 s 24.1-36.2 [facility] INR in Blood by Coagulation assayOrdered By: Livan Estrada on 06-09-2023 INR Coag (Bld) [Relative time] 1.1 {INR} [facility] Laboratory - CoagulationOrde red By: Livan Estrada on 06-09-2023 PT Coag (PPP) [Time] 14.4 s 11.7-14.9 [facility] No Panel InformationOrdered By: Livan Estrada on 06-09-2023 14.4 SECONDS 11.7-14.9 [facility] Basophil percentageOrdered B y: Pao Weeks on 06-08-2023 Basophil percentage 212 U/L 84-246 [facility] LDH [Catalytic activity/Vol] 212 U/L 84-246 [facility] Lower GI hemoglobin IA Ql (S tl)Ordered By: Pao Weeks on 06-08-2023 Stool Occult Blood (ROSAURA) Positive [facility] Stool gastrointestinal hemoglobin detection by immunologic method Positive [facility] Blood manual differential co mment interpretation (narrative result)Ordered By: Gabby Sutherland on 06-07-2023 Manual differential comment Darnell (Bld) [Interp] SCANNED [facility] Comment on above: NEUTROPHILIA NOTED Body fluid appearanceOrdered By: Pao Weeks on 06-07-2023 Appearance (Body fld) SL CLDY [facility] Body fluid color determinati onOrdered By: Pao Weeks on 06-07-2023 Color (Body fld) YELLOW [facility] Body fluid lactate dehydroge nase measurement (enzymatic activity/volume) by pyruvateOrdered By: Pao Weeks on 06-07-2023 LDH Pyruvate to lactate reaction (Body fld) [Catalytic activity/Vol] 3968 Units/L Not Establ. [facility] Body fluid leukocytes count (number/volume)Ordered By: Pao Weeks on 06-07-2023 WBC (Body fld) [#/Vol] 1.132 10*3/uL [facility] Body fluid protein measureme nt (mass/volume)Ordered By: Pao Weeks on 06-07-2023 Protein (Body fld) [Mass/Vol] 4.1 g/dL Not Establ. [facility] Cytology report of Body flui d Cyto stainOrdered By: Pao Weeks on 06-07-2023 Cytology report Cyto stain Doc (Body fld) SEE PATHOLOGY REPORT [facility] Comment on above: Specimen submitted t o Anatomical Pathology Department for testing. Mononuclear cells Auto (Body fld) [#/Vol]Ordered By: Pao Weeks on 06-07-2023 Mononuclear cells (Body fld) [#/Vol] 0.080 10*3/uL [facility] No Panel InformationOrdered By: Pao Weeks on 06-07-2023 Body Fluid Comment 2 SEE COMMENT [facility] Body Fluid Glucose 80 mg/dL 40-70 [facility] Body Fluid Mononuclear WBCs (%) 7.1 % [facility] Body Fluid Pathologist Comment Reviewed [facility] Comment on above: Previous reported re sult: May follow Edited by: MORRO on 06/09/23:1040Negative for malignant cells.Acute inflammation Clinical correlation necessary.Patrice Quinones M.D. 06/09/23 AMENDED REPORT 06/09/23 1040 PATH COMM/BF previously reported as: May follow Body Fluid Polynuclear WBCs (#) 1.052 10^3/uL [facility] Body Fluid Polynuclear WBCs (%) 92.9 % [facility] Body Fluid RBC 471 /mm3 [facility] 471 /mm3 [facility] 92.9 % [facility] 7.1 % [facility] 1.052 10^3/uL [facility] Reviewed [facility] SEE COMMENT [facility] 80 mg/dL 40-70 [facility] Serum or plasma trough vanco mycin levelOrdered By: Adrian Nieves on 06-07-2023 Vancomycin trough [Mass/Vol] 13.4 ug/mL 5.0-15.0 [facility] Comment on above: VANCOMYCIN STANDARED DRUG THERAPY TROUGH LEVEL: 5.0 - 15.0 mg/L VANCOMYCIN HIGH INTENSITY THERAPY TROUGH LEVEL: 15.0 - 20.0 mg/L High Intensity therapy recommended for serious lifethreatening infections include:- Mvbpxicgbf-Fybaxopaozuv-Lboohdjxc (Ventilator/Healtcare Associated)-Sepsis PLEASE CONTACT PHARMACY SERVICES (#6812) FOR INTERPRETATIONOF RESULTS. Specimen source identificati on of body fluidOrdered By: Pao Weeks on 06-07-2023 Specimen source Nom (Body fld) PLEURAL FLUID [facility] Total cell countOrdered By: Pao Weeks on 06-07-2023 Cells counted Molgen (Bld/Tiss) [#] 1.132 10^3/ul 0.000-0.000 [facility] Comment on above: This is the Total Nu mber of Nucleated Cell Types in the Body Fluid. Absolute lymphocyte countOrd ered By: Gabby Sutherland on 06-06-2023 Lymphocytes Auto (Unsp spec) [#/Vol] 1.21 10*3/uL 0.83-4.51 [facility] Basophil percentageOrdered B y: Gabby Sutherland on 06-06-2023 Basophils/100 WBC (Bld) 0.5 % 0-1 W [facility] Chloride [Moles/Vol] 101 mmol/L 98-107 [facility] Eosinophils/100 WBC (Bld) 0.2 % 0-5 [facility] Glucose [Mass/Vol] 134 mg/dL 74-106 [facility] Comment on above: Fasting Glucose resu lt greater than or equal to 126 mg/dL suggests DIABETES MELLITUS per A.D.A. criteria. Neutrophils (Bld) [#/Vol] 23.0 10*3/uL 2.0-7.7 [facility] Neutrophils/100 WBC (Bld) 88.9 % 47-70 [facility] Potassium [Moles/Vol] 3.6 mmol/L 3.5-5.1 [facility] Sodium [Moles/Vol] 142 mmol/L 136-145 [facility] WBC (Bld) [#/Vol] 25.9 10*3/uL 4.4-11.0 [facility] Blood erythrocytes count (nu mber/volume)Ordered By: Gabby Sutherland on 06-06-2023 RBC (Bld) [#/Vol] 3.98 10*6/uL 4.2-5.4 [facility] Blood hemoglobin measurement (mass/volume)Ordered By: Gabby Sutherland on 06-06-2023 Hemoglobin (Bld) [Mass/Vol] 11.2 g/dL 12.0-15.0 [facility] Blood lymphocytes/100 leukoc ytesOrdered By: Gabby Sutherland on 06-06-2023 Lymphocytes/100 WBC (Bld) 4.7 % 19-41 [facility] Blood manual differential co mment interpretation (narrative result)Ordered By: Gabby Sutherland on 06-06-2023 Manual differential comment Darnell (Bld) [Interp] SCANNED [facility] Comment on above: NEUTROPHILIA PRESENT Blood monocytes/100 leukocyt esOrdered By: Gabby Sutherland on 06-06-2023 Monocytes/100 WBC (Bld) 4.0 % 0-10 W [facility] Blood platelet mean volumeOr dered By: Gabby Sutherland on 06-06-2023 Platelet mean volume (Bld) [Entitic vol] 10.2 fL 6.2-12.0 [facility] Determination of erythrocyte mean corpuscular volume (MCV)Ordered By: Gabby Sutherland on 06-06-2023 MCV (RBC) [Entitic vol] 91.0 fL 81-99 W [facility] Hematocrit Auto (Bld) [Volum e fraction]Ordered By: Gabby Sutherland on 06-06-2023 Hematocrit (Bld) [Volume fraction] 36.2 % 37-47 [facility] Laboratory - Chemistry and C hemistry - challengeOrdered By: Gabby Sutherland on 06-06-2023 CO2 [Moles/Vol] 39.0 mmol/L 21.0-32.0 [facility] Urea nitrogen/Creatinine [Mass ratio] 56.1 mg/mg 10-20 [facility] Laboratory - Hematology and Cell countsOrdered By: Gabby Sutherland on 06-06-2023 Erythrocyte distribution width (RBC) [Entitic vol] 42.5 fL 35.1-43.9 [facility] Erythrocyte distribution width (RBC) [Ratio] 12.7 % 11.6-14.6 [facility] Immature granulocytes/100 WBC (Bld) 1.700 % 0.0-0.9 [facility] Comment on above: IG% - Immature Granu locytes (promyelocytes, myelocytes and metamyelocytes) > 1% indicates that a LEFT SHIFT is Present. MCH (RBC) [Entitic mass] 28.1 pg 27.0-32.0 [facility] Nucleated RBC/100 WBC (Bld) [Ratio] 0 % 0-5 [facility] MCHC Auto (RBC) [Mass/Vol]Or dered By: Gabby Sutherland on 06-06-2023 MCHC (RBC) [Mass/Vol] 30.9 g/dL 32-36 [facility] No Panel InformationOrdered By: Gabby Sutherland on 06-06-2023 Estimated Creatinine Clearance Calc 47.14 ml/min [facility] Estimated GFR (MDRD) Amer 127 mL/min >60 [facility] Comment on above: GFR Calc Estimated GFR (MDRD) Non-Af Amer 105 mL/min >60 [facility] Comment on above: Non- GFR Calc Platelets bldOrdered By: Crista Sutherland on 06-06-2023 Platelets (Bld) [#/Vol] 437 10*3/uL 150-450 [facility] Serum or plasma calcium rena urement (mass/volume)Ordered By: Gabby Sutherland on 06-06-2023 Calcium [Mass/Vol] 9.0 mg/dL 8.5-10.1 [facility] Serum or plasma creatinine m easurement (mass/volume)Ordered By: Gabby Sutherland on 06-06-2023 Creatinine [Mass/Vol] 0.61 mg/dL 0.55-1.02 [facility] Comment on above: The validity of the calculated GFR & GFRAA in patients over 70 years has not been determined. Clinical correlation is essential. Serum or plasma urea nitroge n measurement (mass/volume)Ordered By: Gabby Sutherland on 06-06-2023 Urea nitrogen [Mass/Vol] 34 mg/dL 7-18 [facility] Thin prep Papanicolaou smear with manual screeningOrdered By: Gabby Sutherland on 06-06-2023 Thin prep Papanicolaou smear with manual screening 2 5-15 [facility] Review by pathologistOrdered By: Gabby Sutherland on 06-05-2023 Pathologist review Darnell (Unsp spec) [Interp] May [facility] Serum or plasma trough vanco mycin levelOrdered By: Adrian Nieves on 06-05-2023 Vancomycin trough [Mass/Vol] 17.1 ug/mL 5.0-15.0 [facility] Comment on above: VANCOMYCIN STANDARED DRUG THERAPY TROUGH LEVEL: 5.0 - 15.0 mg/L VANCOMYCIN HIGH INTENSITY THERAPY TROUGH LEVEL: 15.0 - 20.0 mg/L High Intensity therapy recommended for serious lifethreatening infections include:- Ybydemtrkc-Jacjnfaimlsz-Bysolqtos (Ventilator/Healtcare Associated)-Sepsis PLEASE CONTACT PHARMACY SERVICES (#0253) FOR INTERPRETATIONOF RESULTS. Base excessOrdered By: Gabby Sutherland on 06-03-2023 Base excess Calc (BldV) [Moles/Vol] 1 mmol/L -2-2 [facility] Basophil percentageOrdered B y: Gabby Sutherland on 06-03-2023 Basophil percentage 26.2 mmol/L 22- [facility] Basophils/100 WBC (Bld) 94 % 95-99 [facility] CO2 (BldA) [Partial pressure ]Ordered By: Gabby Sutherland on 06-03-2023 CO2 (Bld) [Partial pressure] 45.2 mm[Hg] 35-45 [facility] Laboratory - Microbiology an d Antimicrobial susceptibilityOrdered By: Adrian Nieves on 06-03-2023 SARS-CoV-2 (COVID-19) RNA FOZIA+probe Ql (Unsp spec) [facility] No Panel InformationOrdered By: Gabby Sutherland on 06-03-2023 Bedside Blood Gas PEEP 10 [facility] Blood Gas Clinical Comments 24-12 [facility] Blood Gas Oxygen Percent 28.0 [facility] Blood Gas Respiration Rate 12 [facility] Blood Gas Sample Site R Brach [facility] Blood Gas Specimen Type ART W [facility] Blood Gas Tidal Volume 450.0 mL [facility] Blood Gas Total CO2 28 mmol/L [facility] Blood Gas Vent Mode NIV [facility] Oxygen Delivery Device BiPAP [facility] 450.0 mL [facility] 12 [facility] 10 [facility] 24-12 [facility] Oxygen (BldA) [Partial press ure]Ordered By: Gabby Sutherland on 06-03-2023 Oxygen (Bld) [Partial pressure] 73 mmHG 75-100 [facility] pH measurementOrdered By: Renetta Sutherland on 06-03-2023 pH (Unsp spec) 7.37 [pH] 7.35-7.45 [facility] Absolute lymphocyte countOrd ered By: Mikael Swartz on 06-02-2023 Lymphocytes Auto (Unsp spec) [#/Vol] 2.18 10*3/uL 0.83-4.51 [facility] Base excessOrdered By: Remberto Swartz on 06-02-2023 Base excess Calc (BldV) [Moles/Vol] 0 mmol/L -2-2 [facility] Basophil percentageOrdered B y: Mikael Swartz on 06-02-2023 Basophil percentage 0 SEEN /hpf 0-5 [facility] Basophil percentage 26.9 mmol/L - [facility] Basophils/100 WBC (Bld) 90 % 95-99 [facility] Basophil percentage 7.9 g/dL 6.4-8.2 [facility] Basophil percentage 0.70 mg/dL 0.20-1.00 [facility] Basophil percentage 1.6 mmol/L 0.4-2.0 [facility] Basophils/100 WBC (Bld) 0.4 % 0-1 W [facility] Bilirubin [Mass/Vol] 0.70 mg/dL 0.20-1.00 [facility] Comment on above: For patients on eltr ombopag therapy, use of Dimension [place] TBIL is not recommended. Chloride [Moles/Vol] 101 mmol/L 98-107 [facility] Eosinophils/100 WBC (Bld) 1.1 % 0-5 [facility] Glucose [Mass/Vol] 187 mg/dL 74-106 [facility] Comment on above: Fasting Glucose resu lt greater than or equal to 126 mg/dL suggests DIABETES MELLITUS per A.D.A. criteria. Lactate [Moles/Vol] 1.6 mmol/L 0.4-2.0 [facility] Neutrophils (Bld) [#/Vol] 20.2 10*3/uL 2.0-7.7 [facility] Neutrophils/100 WBC (Bld) 84.8 % 47-70 [facility] Potassium [Moles/Vol] 3.6 mmol/L 3.5-5.1 [facility] Protein [Mass/Vol] 7.9 g/dL 6.4-8.2 [facility] Sodium [Moles/Vol] 136 mmol/L 136-145 [facility] WBC (Bld) [#/Vol] 23.8 10*3/uL 4.4-11.0 [facility] Bilirubin Test strip Ql (U)O rdered By: Mikael Swartz on 06-02-2023 Bilirubin Ql (U) Negative Negative [facility] Blood erythrocytes count (nu mber/volume)Ordered By: Mikael Swartz on 06-02-2023 RBC (Bld) [#/Vol] 4.09 10*6/uL 4.2-5.4 [facility] Blood hemoglobin measurement (mass/volume)Ordered By: Mikael Swartz on 06-02-2023 Hemoglobin (Bld) [Mass/Vol] 11.9 g/dL 12.0-15.0 [facility] Blood lymphocytes/100 leukoc ytesOrdered By: Mikael Swartz on 06-02-2023 Lymphocytes/100 WBC (Bld) 9.2 % 19-41 [facility] Blood monocytes/100 leukocyt esOrdered By: Mikael Swartz on 06-02-2023 Monocytes/100 WBC (Bld) 3.9 % 0-10 W [facility] Blood platelet mean volumeOr dered By: Mikael Swartz on 06-02-2023 Platelet mean volume (Bld) [Entitic vol] 10.0 fL 6.2-12.0 [facility] CO2 (BldA) [Partial pressure ]Ordered By: Mikael Swartz on 06-02-2023 CO2 (Bld) [Partial pressure] 62.0 mm[Hg] 35-45 [facility] Culture, urineOrdered By: Rocky Swartz on 06-02-2023 Bacteria identified Cx Nom (U) Culture exhibits no growth. [facility] Determination of erythrocyte mean corpuscular volume (MCV)Ordered By: Mikael Swartz on 06-02-2023 MCV (RBC) [Entitic vol] 90.0 fL 81-99 W [facility] Hematocrit Auto (Bld) [Volum e fraction]Ordered By: Mikael Swartz on 06-02-2023 Hematocrit (Bld) [Volume fraction] 36.8 % 37-47 [facility] Hyaline casts LM.LPF (Urine sed) [#/Area]Ordered By: Mikael Swartz on 06-02-2023 Hyaline casts (Urine sed) [#/Area] 0 /[LPF] 0-5 [facility] INR in Blood by Coagulation assayOrdered By: Mikael Swartz on 06-02-2023 INR Coag (Bld) [Relative time] 1.2 {INR} [facility] Ketones Test strip Ql (U)Ord ered By: Mikael Swartz on 06-02-2023 Ketones Ql (U) 5 mg/dl Negative [facility] Laboratory - Chemistry and C hemistry - challengeOrdered By: Mikael Swartz on 06-02-2023 ALP [Catalytic activity/Vol] 112 U/L 45-117 [facility] ALT [Catalytic activity/Vol] 14 U/L 13-56 [facility] CO2 [Moles/Vol] 29.0 mmol/L 21.0-32.0 [facility] Globulin (S) [Mass/Vol] 4.9 g/dL 2.2-4.2 W [facility] Urea nitrogen/Creatinine [Mass ratio] 17.3 mg/mg 10-20 [facility] Laboratory - CoagulationOrde red By: Mikael Swartz on 06-02-2023 aPTT Coag (Bld) [Time] 29.1 s 24.1-36.2 [facility] PT Coag (PPP) [Time] 14.7 s 11.7-14.9 [facility] Laboratory - Hematology and Cell countsOrdered By: Mikael Swartz on 06-02-2023 Erythrocyte distribution width (RBC) [Entitic vol] 41.5 fL 35.1-43.9 [facility] Erythrocyte distribution width (RBC) [Ratio] 12.5 % 11.6-14.6 [facility] Immature granulocytes/100 WBC (Bld) 0.600 % 0.0-0.9 [facility] Comment on above: IG% - Immature Granu locytes (promyelocytes, myelocytes and metamyelocytes) > 1% indicates that a LEFT SHIFT is Present. MCH (RBC) [Entitic mass] 29.1 pg 27.0-32.0 [facility] Nucleated RBC/100 WBC (Bld) [Ratio] 0 % 0-5 [facility] Laboratory - Microbiology an d Antimicrobial susceptibilityOrdered By: Mikael Swartz on 06-02-2023 Bacteria identified Cx Nom (Bld) No growth in 5 days. [facility] MCHC Auto (RBC) [Mass/Vol]Or dered By: Mikael Swartz on 06-02-2023 MCHC (RBC) [Mass/Vol] 32.3 g/dL 32-36 [facility] Mucus LM Ql (Urine sed)Order ed By: Mikael Swartz on 06-02-2023 Mucus Ql (Urine sed) 2+ /hpf [facility] Nitrite Test strip Ql (U)Ord ered By: Mikael Swartz on 06-02-2023 Nitrite Ql (U) Negative Negative [facility] No Panel InformationOrdered By: Adrian Nieves on 06-02-2023 Methicillin-Resist S.aureus DNA PCR Negative Negative [facility] Negative Negative [facility] No Panel InformationOrdered By: Mikael Swartz on 06-02-2023 No growth in 5 days. [facility] Blood Gas Oxygen Percent 3.0 [facility] Blood Gas Sample Site R Brach [facility] Blood Gas Specimen Type ART W [facility] Blood Gas Total CO2 29 mmol/L [facility] Blood Gas Vent Mode Not entered [facility] Oxygen Delivery Device Not entered [facility] Estimated Creatinine Clearance Calc 54.18 ml/min [facility] Estimated GFR (MDRD) Amer 84 mL/min >60 [facility] Comment on above: GFR Calc Estimated GFR (MDRD) Non-Af Amer 69 mL/min >60 [facility] Comment on above: Non- GFR Calc 4.9 g/dL 2.2-4.2 [facility] 112 U/L 45-117 [facility] 14 U/L 13-56 [facility] Oxygen (BldA) [Partial press ure]Ordered By: Mikael Swartz on 06-02-2023 Oxygen (Bld) [Partial pressure] 70 mmHG 75-100 [facility] Platelets bldOrdered By: Noa Swartz on 06-02-2023 Platelets (Bld) [#/Vol] 504 10*3/uL 150-450 [facility] Protein Test strip Ql (U)Ord ered By: Mikael Swartz on 06-02-2023 Protein Ql (U) 100 mg/dl Negative [facility] Serum or plasma albumin rena urement (mass/volume)Ordered By: Mikael Swartz on 06-02-2023 Albumin [Mass/Vol] 3.0 g/dL 3.2-5.0 [facility] Serum or plasma albumin/glob ulin mass ratioOrdered By: Mikael Swartz on 06-02-2023 Albumin/Globulin [Mass ratio] 0.6 {ratio} 0.9-2.4 [facility] Serum or plasma calcium rena urement (mass/volume)Ordered By: Mikael Swartz on 06-02-2023 Calcium [Mass/Vol] 9.4 mg/dL 8.5-10.1 [facility] Serum or plasma creatinine m easurement (mass/volume)Ordered By: Mikael Swartz on 06-02-2023 Creatinine [Mass/Vol] 0.87 mg/dL 0.55-1.02 [facility] Comment on above: The validity of the calculated GFR & GFRAA in patients over 70 years has not been determined. Clinical correlation is essential. Serum or plasma urea nitroge n measurement (mass/volume)Ordered By: Mikael Swartz on 06-02-2023 Urea nitrogen [Mass/Vol] 15 mg/dL 7-18 [facility] Squamous epithelial cells de tection in urine sediment by light microscopyOrdered By: Mikael Swartz on 06-02-2023 Epithelial cells.squamous LM Ql (Urine sed) 0-5 SEEN /hpf 5-10 [facility] Thin prep Papanicolaou smear with manual screeningOrdered By: Mikael Swartz on 06-02-2023 Thin prep Papanicolaou smear with manual screening 18 U/L 15-37 [facility] Thin prep Papanicolaou smear with manual screening 6 5-15 [facility] Urine blood detectionOrdered By: Mikael Swartz on 06-02-2023 RBC Ql (U) 150 /ul Negative [facility] RBC Ql (U) 0-5 SEEN /hpf 0-5 [facility] Urine clarityOrdered By: Noa Swartz on 06-02-2023 Clarity (U) Cloudy Clear [facility] Urine color determinationOrd ered By: Mikael Swartz on 06-02-2023 Color (U) Yellow Yellow [facility] Urine glucose detectionOrder ed By: Mikael Swartz on 06-02-2023 Glucose Ql (U) Normal mg/dl Normal [facility] Urine leukocyte esterase det ection by dipstickOrdered By: Mikael Swartz on 06-02-2023 Leukocyte esterase Test strip Ql (U) Negative Negative [facility] Urine pHOrdered By: Mikael Swartz on 06-02-2023 pH (U) 5.0 [pH] 5.0 - 8.0 [facility] Urine sediment bacteria coun t by microscopy (number/high power field)Ordered By: Mikael Swartz on 06-02-2023 Bacteria LM.HPF (Urine sed) [#/Area] 1 /[HPF] None Seen [facility] Urine specific gravity measu rementOrdered By: Mikael Swartz on 06-02-2023 Specific gravity (U) [Rel density] 1.030 1.002-1.030 [facility] Urobilinogen Auto test strip Ql (U)Ordered By: Mikael Swartz on 06-02-2023 Urobilinogen Ql (U) Normal mg/dl Normal [facility] pH measurementOrdered By: Rocky Swartz on 06-02-2023 pH (Unsp spec) 7.25 [pH] 7.35-7.45 [facility] Absolute lymphocyte countOrd ered By: Hoang Foster on 06-01-2023 Lymphocytes Auto (Unsp spec) [#/Vol] 1.05 10*3/uL 0.83-4.51 [facility] Activated partial thrombopla stin time (aPTT) in platelet poor plasma by coagulation aOrdered By: Hoang Foster on 06-01-2023 aPTT Coag (PPP) [Time] 30.9 s 24.1-36.2 [facility] Basophil percentageOrdered B y: Hoang Foster on 06-01-2023 Basophil percentage 125 mg/dL 74-106 [facility] Basophil percentage 140 mmol/L 136-145 [facility] Basophil percentage 3.3 mmol/L 3.5-5.1 [facility] Basophil percentage 105 mmol/L 98-107 [facility] Basophils (Bld) [#/Vol] 13.4 10*3/uL 4.4-11.0 [facility] Basophils (Bld) [#/Vol] 10.7 10*3/uL 2.0-7.7 [facility] Basophils/100 WBC (Bld) 0.4 % 0-1 W [facility] Basophils/100 WBC (Bld) 80.0 % 47-70 W [facility] Basophils/100 WBC (Bld) 7.9 % 19-41 W [facility] Basophils/100 WBC (Bld) 9.3 % 0-10 W [facility] Basophils/100 WBC (Bld) 2.0 % 0-5 W [facility] Chloride [Moles/Vol] 105 mmol/L 98-107 [facility] Eosinophils/100 WBC (Bld) 2.0 % 0-5 [facility] Glucose [Mass/Vol] 125 mg/dL 74-106 [facility] Comment on above: Fasting Glucose resu lt from 100 to 125 mg/dL suggests IMPAIRED HOMEOSTASIS per A.D.A. criteria. Lymphocytes/100 WBC (Bld) 7.9 % 19-41 [facility] Monocytes/100 WBC (Bld) 9.3 % 0-10 [facility] Neutrophils (Bld) [#/Vol] 10.7 10*3/uL 2.0-7.7 [facility] Neutrophils/100 WBC (Bld) 80.0 % 47-70 [facility] Potassium [Moles/Vol] 3.3 mmol/L 3.5-5.1 [facility] Sodium [Moles/Vol] 140 mmol/L 136-145 [facility] WBC (Bld) [#/Vol] 13.4 10*3/uL 4.4-11.0 [facility] Blood erythrocytes count (nu mber/volume)Ordered By: Hoang Foster on 06-01-2023 RBC (Bld) [#/Vol] 3.69 10*6/uL 4.2-5.4 [facility] Blood hemoglobin measurement (mass/volume)Ordered By: Hoang Foster on 06-01-2023 Hemoglobin (Bld) [Mass/Vol] 10.9 g/dL 12.0-15.0 [facility] Blood platelet mean volumeOr dered By: Hoang Foster on 06-01-2023 Platelet mean volume (Bld) [Entitic vol] 10.2 fL 6.2-12.0 [facility] Determination of erythrocyte mean corpuscular volume (MCV)Ordered By: Hoang Foster on 06-01-2023 MCV (RBC) [Entitic vol] 90.8 fL 81-99 [facility] Hematocrit Auto (Bld) [Volum e fraction]Ordered By: Hoang Foster on 06-01-2023 Hematocrit (Bld) [Volume fraction] 33.5 % 37-47 [facility] INR in Blood by Coagulation assayOrdered By: Hoang Foster on 06-01-2023 INR Coag (Bld) [Relative time] 1.0 {INR} [facility] Influenza virus A and B and SARS-CoV-2 (COVID-19) Ag panel - Upper respiratory specimOrdered By: Hoang Foster on 06-01-2023 SARS-CoV-2 (COVID-19) RNA FOZIA+probe Ql (Resp) [facility] Laboratory - Chemistry and C hemistry - challengeOrdered By: Hoang Foster on 06-01-2023 CO2 [Moles/Vol] 31.0 mmol/L 21.0-32.0 [facility] Magnesium [Mass/Vol] 2.2 mg/dL 1.6-2.6 [facility] Urea nitrogen/Creatinine [Mass ratio] 16.7 mg/mg 10-20 [facility] Laboratory - CoagulationOrde red By: Hoang Foster on 06-01-2023 PT Coag (PPP) [Time] 13.6 s 11.7-14.9 [facility] Laboratory - Hematology and Cell countsOrdered By: Hoang Foster on 06-01-2023 Erythrocyte distribution width (RBC) [Entitic vol] 40.9 fL 35.1-43.9 [facility] Erythrocyte distribution width (RBC) [Ratio] 12.3 % 11.6-14.6 [facility] Immature granulocytes/100 WBC (Bld) 0.400 % 0.0-0.9 [facility] Comment on above: IG% - Immature Granu locytes (promyelocytes, myelocytes and metamyelocytes) > 1% indicates that a LEFT SHIFT is Present. MCH (RBC) [Entitic mass] 29.5 pg 27.0-32.0 [facility] Nucleated RBC/100 WBC (Bld) [Ratio] 0 % 0-5 [facility] MCHC Auto (RBC) [Mass/Vol]Or dered By: Hoang Foster on 06-01-2023 MCHC (RBC) [Mass/Vol] 32.5 g/dL 32-36 [facility] No Panel InformationOrdered By: Hoang Foster on 06-01-2023 Estimated GFR (MDRD) Amer 95 mL/min >60 [facility] Estimated GFR (MDRD) Non-Af Amer 78 mL/min >60 [facility] 29.5 pg 27.0-32.0 [facility] 12.3 % 11.6-14.6 [facility] 40.9 fl 35.1-43.9 [facility] 0.400 % 0.0-0.9 [facility] 0 % 0-5 [facility] 13.6 SECONDS 11.7-14.9 [facility] 78 mL/min >60 [facility] 95 mL/min >60 [facility] 16.7 RATIO 10-20 [facility] 2.2 mg/dL 1.6-2.6 [facility] 31.0 mmol/L 21.0-32.0 [facility] Platelets bldOrdered By: Brant Foster on 06-01-2023 Platelets (Bld) [#/Vol] 348 10*3/uL 150-450 [facility] Serum or plasma calcium rena urement (mass/volume)Ordered By: Hoang Foster on 06-01-2023 Calcium [Mass/Vol] 8.9 mg/dL 8.5-10.1 [facility] Serum or plasma creatinine m easurement (mass/volume)Ordered By: Hoang Foster on 06-01-2023 Creatinine [Mass/Vol] 0.78 mg/dL 0.55-1.02 [facility] Comment on above: The validity of the calculated GFR & GFRAA in patients over 70 years has not been determined. Clinical correlation is essential. Serum or plasma urea nitroge n measurement (mass/volume)Ordered By: Hoang Foster on 06-01-2023 Urea nitrogen [Mass/Vol] 13 mg/dL 7-18 [facility] Thin prep Papanicolaou smear with manual screeningOrdered By: Hoang Foster on 06-01-2023 Thin prep Papanicolaou smear with manual screening 4 5-15 [facility] Upper respiratory specimen i nfluenza A virus, influenza B virus, and severe acute resOrdered By: Hoang Foster on 06-01-2023 Upper respiratory specimen influenza A virus, influenza B virus, and severe acute res [facility] XR Chest PA and Lateralon IMPRESSION: Stable exam. Hazy appearance overlying the right lower lung, felt to be related to pectus excavatum. Offset Plate Maker: [email or web address] Transcribe Date/Time: Jan 07 2023 4:13P Dictated by : JASVIR WESLEY MD This examination was interpreted and the report reviewed and electronically signed by: JASVIR WESLEY MD on Jan 07 2023 4:17PM [facility] DIVISION OF RADIOLOGY * * *Final Report* [...] right shoulder arthroplasty. DIVISION OF RADIOLOGY Provider, [facility] - 01/07/2023 * * *Final Report* * [...] felt to be related to pectus excavatum. Offset Plate Maker: [email or web address] Transcribe Date/Time: Jan 07 2023 4:13P Dictated by : JASVIR WESLEY MD This examination was interpreted and the report reviewed and electronically signed by: JASVIR WESLEY MD on Jan 07 2023 4:17PM EST [facility] Radiology Study observation (narrative) [facility] XR Chest PA and LateralOrder ed By: [facility] Provider on 01-07-2023 [facility] Absolute lymphocyte countOrd ered By: Dr. Celaya on 12-03-2022 Lymphocytes Auto (Unsp spec) [#/Vol] 0.95 10*3/uL 0.83-4.51 [facility] Basophil percentageOrdered B y: Dr. Celaya on 12-03-2022 Basophils/100 WBC (Bld) 0.1 % 0-1 [facility] Chloride [Moles/Vol] 103 mmol/L 98-107 [facility] Eosinophils/100 WBC (Bld) 0.0 % 0-5 [facility] Glucose [Mass/Vol] 137 mg/dL 74-106 [facility] Comment on above: Fasting Glucose resu lt greater than or equal to 126 mg/dL suggests DIABETES MELLITUS per A.D.A. criteria. Neutrophils (Bld) [#/Vol] 6.2 10*3/uL 2.0-7.7 [facility] Neutrophils/100 WBC (Bld) 83.3 % 47-70 [facility] Potassium [Moles/Vol] 4.2 mmol/L 3.5-5.1 [facility] Sodium [Moles/Vol] 139 mmol/L 136-145 [facility] WBC (Bld) [#/Vol] 7.5 10*3/uL 4.4-11.0 [facility] Blood erythrocytes count (nu mber/volume)Ordered By: Dr. Celaya on 12-03-2022 RBC (Bld) [#/Vol] 3.71 10*6/uL 4.2-5.4 [facility] Blood hemoglobin measurement (mass/volume)Ordered By: Dr. Celaya on 12-03-2022 Hemoglobin (Bld) [Mass/Vol] 10.8 g/dL 12.0-15.0 [facility] Blood lymphocytes/100 leukoc ytesOrdered By: Dr. Celaya on 12-03-2022 Lymphocytes/100 WBC (Bld) 12.7 % 19-41 [facility] Blood monocytes/100 leukocyt esOrdered By: Dr. Celaya on 12-03-2022 Monocytes/100 WBC (Bld) 3.1 % 0-10 [facility] Blood platelet mean volumeOr dered By: Dr. Celaya on 12-03-2022 Platelet mean volume (Bld) [Entitic vol] 9.9 fL 6.2-12.0 [facility] Determination of erythrocyte mean corpuscular volume (MCV)Ordered By: Dr. Celaya on 12-03-2022 MCV (RBC) [Entitic vol] 90.0 fL 81-99 [facility] Hematocrit Auto (Bld) [Volum e fraction]Ordered By: Dr. Celaya on 12-03-2022 Hematocrit (Bld) [Volume fraction] 33.4 % 37-47 [facility] Laboratory - Chemistry and C hemistry - challengeOrdered By: Dr. Celaya on 12-03-2022 CO2 [Moles/Vol] 31.0 mmol/L 21.0-32.0 [facility] Urea nitrogen/Creatinine [Mass ratio] 26.3 mg/mg 10-20 [facility] Laboratory - Hematology and Cell countsOrdered By: Dr. Celaya on 12-03-2022 Erythrocyte distribution width (RBC) [Entitic vol] 42.5 fL 35.1-43.9 [facility] Erythrocyte distribution width (RBC) [Ratio] 12.9 % 11.6-14.6 [facility] Immature granulocytes/100 WBC (Bld) 0.800 % 0.0-0.9 [facility] Comment on above: IG% - Immature Granu locytes (promyelocytes, myelocytes and metamyelocytes) > 1% indicates that a LEFT SHIFT is Present. MCH (RBC) [Entitic mass] 29.1 pg 27.0-32.0 [facility] Nucleated RBC/100 WBC (Bld) [Ratio] 0 % 0-5 [facility] Auto (RBC) [Mass/Vol]Or dered By: Dr. Celaya on 12-03-2022 MCHC (RBC) [Mass/Vol] 32.3 g/dL 32-36 [facility] No Panel InformationOrdered By: Dr. Celaya on 12-03-2022 Estimated Creatinine Clearance Calc 47.79 ml/min [facility] Estimated GFR (MDRD) Amer 104 mL/min >60 [facility] Comment on above: GFR Calc Estimated GFR (MDRD) Non-Af Amer 86 mL/min >60 [facility] Comment on above: Non- GFR Calc Platelets bldOrdered By: Dr. Celaya on 12-03-2022 Platelets (Bld) [#/Vol] 273 10*3/uL 150-450 [facility] Serum or plasma calcium rena urement (mass/volume)Ordered By: Dr. Celaya on 12-03-2022 Calcium [Mass/Vol] 8.6 mg/dL 8.5-10.1 [facility] Serum or plasma creatinine m easurement (mass/volume)Ordered By: Dr. Celaya on 12-03-2022 Creatinine [Mass/Vol] 0.72 mg/dL 0.55-1.02 [facility] Comment on above: The validity of the calculated GFR & GFRAA in patients over 70 years has not been determined. Clinical correlation is essential. Serum or plasma urea nitroge n measurement (mass/volume)Ordered By: Dr. Celaya on 12-03-2022 Urea nitrogen [Mass/Vol] 19 mg/dL 7-18 [facility] Thin prep Papanicolaou smear with manual screeningOrdered By: Dr. Celaya on 12-03-2022 Thin prep Papanicolaou smear with manual screening 5 5-15 [facility] Basophil percentageOrdered B y: Dr. Perez on 12-01-2022 Basophil percentage 2.6 mg/dL 2.5-4.9 [facility] Bilirubin [Mass/Vol] 0.40 mg/dL 0.20-1.00 [facility] Comment on above: For patients on eltr ombopag therapy, use of Dimension Campbell TBIL is not recommended. Protein [Mass/Vol] 6.6 g/dL 6.4-8.2 [facility] COVID-19 virus antigen assay Ordered By: Dr. Celaya on 12-01-2022 SARS-CoV-2 (COVID-19) Ag IA.rapid Ql (Resp) [facility] Laboratory - Chemistry and C hemistry - challengeOrdered By: Dr. Perez on 12-01-2022 ALP [Catalytic activity/Vol] 86 U/L 45-117 [facility] ALT [Catalytic activity/Vol] 14 U/L 13-56 [facility] Globulin (S) [Mass/Vol] 4.1 g/dL 2.2-4.2 [facility] Magnesium [Mass/Vol] 2.5 mg/dL 1.6-2.6 [facility] Serum or plasma albumin rena urement (mass/volume)Ordered By: Dr. Perez on 12-01-2022 Albumin [Mass/Vol] 2.5 g/dL 3.2-5.0 [facility] Serum or plasma albumin/glob ulin mass ratioOrdered By: Dr. Perez on 12-01-2022 Albumin/Globulin [Mass ratio] 0.6 {ratio} 0.9-2.4 [facility] Thin prep Papanicolaou smear with manual screeningOrdered By: Dr. Perez on 12-01-2022 Thin prep Papanicolaou smear with manual screening 7 U/L 15-37 [facility] Absolute lymphocyte countOrd ered By: Dr. Thomas on 11-30-2022 Lymphocytes Auto (Unsp spec) [#/Vol] 0.62 10*3/uL 0.83-4.51 [facility] Assessment of wrist artery p atency prior to arterial punctureOrdered By: Dr. Thomas on 11-30-2022 Arterial patency Wrist artery --pre arterial puncture Positive [facility] Base excessOrdered By: Dr. Ko hanley on 11-30-2022 Base excess Calc (BldV) [Moles/Vol] 4 mmol/L -2-2 [facility] Basophil percentageOrdered B y: Dr. Thomas on 11-30-2022 Basophil percentage 27.5 mmol/L 22-26 [facility] Basophils/100 WBC (Bld) 93 % 95-99 [facility] Basophils/100 WBC (Bld) 0.3 % 0-1 [facility] Bilirubin [Mass/Vol] 1.10 mg/dL 0.20-1.00 [facility] Comment on above: For patients on eltr ombopag therapy, use of Dimension Campbell TBIL is not recommended. Chloride [Moles/Vol] 98 mmol/L 98-107 [facility] Eosinophils/100 WBC (Bld) 0.2 % 0-5 [facility] Glucose [Mass/Vol] 146 mg/dL 74-106 [facility] Comment on above: Fasting Glucose resu lt greater than or equal to 126 mg/dL suggests DIABETES MELLITUS per A.D.A. criteria. Lactate [Moles/Vol] 1.8 mmol/L 0.4-2.0 [facility] Neutrophils (Bld) [#/Vol] 25.7 10*3/uL 2.0-7.7 [facility] Neutrophils/100 WBC (Bld) 88.0 % 47-70 [facility] Potassium [Moles/Vol] 3.8 mmol/L 3.5-5.1 [facility] Protein [Mass/Vol] 7.4 g/dL 6.4-8.2 [facility] Sodium [Moles/Vol] 134 mmol/L 136-145 [facility] WBC (Bld) [#/Vol] 29.2 10*3/uL 4.4-11.0 [facility] Blood erythrocytes count (nu mber/volume)Ordered By: Dr. Thomas on 11-30-2022 RBC (Bld) [#/Vol] 4.09 10*6/uL 4.2-5.4 [facility] Blood hemoglobin measurement (mass/volume)Ordered By: Dr. Thomas on 11-30-2022 Hemoglobin (Bld) [Mass/Vol] 12.2 g/dL 12.0-15.0 [facility] Blood lymphocytes/100 leukoc ytesOrdered By: Dr. Thomas on 11-30-2022 Lymphocytes/100 WBC (Bld) 2.1 % 19-41 [facility] Blood manual differential co mment interpretation (narrative result)Ordered By: Dr. Thomas on 11-30-2022 Manual differential comment Darnell (Bld) [Interp] SCANNED [facility] Blood monocytes/100 leukocyt esOrdered By: Dr[address] Thomas on 11-30-2022 Monocytes/100 WBC (Bld) 6.8 % 0-10 [facility] Blood platelet mean volumeOr dered By: Dr. Thomas on 11-30-2022 Platelet mean volume (Bld) [Entitic vol] 9.9 fL 6.2-12.0 [facility] CO2 (BldA) [Partial pressure ]Ordered By: Dr. Thomas on 11-30-2022 CO2 (Bld) [Partial pressure] 37.0 mm[Hg] 35-45 [facility] Determination of erythrocyte mean corpuscular volume (MCV)Ordered By: Dr. Thomas on 11-30-2022 MCV (RBC) [Entitic vol] 90.5 fL 81-99 [facility] Hematocrit Auto (Bld) [Volum e fraction]Ordered By: Dr. Thomas on 11-30-2022 Hematocrit (Bld) [Volume fraction] 37.0 % 37-47 [facility] Laboratory - Chemistry and C hemistry - challengeOrdered By: Dr. Thomas on 11-30-2022 ALP [Catalytic activity/Vol] 103 U/L 45-117 [facility] ALT [Catalytic activity/Vol] 19 U/L 13-56 [facility] CO2 [Moles/Vol] 29.0 mmol/L 21.0-32.0 [facility] Globulin (S) [Mass/Vol] 4.5 g/dL 2.2-4.2 [facility] Urea nitrogen/Creatinine [Mass ratio] 14.0 mg/mg 10-20 [facility] Laboratory - Hematology and Cell countsOrdered By: Dr. Thomas on 11-30-2022 Erythrocyte distribution width (RBC) [Entitic vol] 43.8 fL 35.1-43.9 [facility] Erythrocyte distribution width (RBC) [Ratio] 13.2 % 11.6-14.6 [facility] Immature granulocytes/100 WBC (Bld) 2.600 % 0.0-0.9 [facility] Comment on above: IG% - Immature Granu locytes (promyelocytes, myelocytes and metamyelocytes) > 1% indicates that a LEFT SHIFT is Present. MCH (RBC) [Entitic mass] 29.8 pg 27.0-32.0 [facility] Nucleated RBC/100 WBC (Bld) [Ratio] 0 % 0-5 [facility] MCHC Auto (RBC) [Mass/Vol]Or dered By: Dr. Thomas on 11-30-2022 MCHC (RBC) [Mass/Vol] 33.0 g/dL 32-36 [facility] Comment on above: Delta: 31.1 on 11/28-0054 No Panel InformationOrdered By: Dr. Perez on 11-30-2022 Methicillin-Resist S.aureus DNA PCR Negative Negative [facility] Streptococcus pneumoniae Antigen (M [facility] No Panel InformationOrdered By: Dr. Thomas on 11-30-2022 Blood Gas Liter Flow 2.0 /min [facility] Blood Gas Sample Site L Radial [facility] Blood Gas Specimen Type ART W [facility] Blood Gas Total CO2 29 mmol/L [facility] Oxygen Delivery Device Cannula [facility] Estimated Creatinine Clearance Calc 44.66 ml/min [facility] Estimated GFR (MDRD) Amer 66 mL/min >60 [facility] Comment on above: GFR Calc Estimated GFR (MDRD) Non-Af Amer 54 mL/min >60 [facility] Comment on above: Non- GFR Calc Oxygen (BldA) [Partial press ure]Ordered By: Dr. Thomas on 11-30-2022 Oxygen (Bld) [Partial pressure] 62 mmHG 75-100 [facility] Platelets bldOrdered By: Dr. Thomas on 11-30-2022 Platelets (Bld) [#/Vol] 252 10*3/uL 150-450 [facility] Review by pathologistOrdered By: Dr. Thomas on 11-30-2022 Pathologist review Darnell (Unsp spec) [Interp] Lulu minor [facility] Pathologist review Darnell (Unsp spec) [Interp] Reviewed [facility] Comment on above: Previous reported re sult: Lulu minor Edited by: RGOOD on 12/02/22:0926Neutrophilic leukocytosis.Clinical correlation necessary.Patrice Quinones M.D. 06/01/23 AMENDED REPORT 12/02/22 0926 PATH REV previously reported as: May foll Serum or plasma albumin rena urement (mass/volume)Ordered By: Dr. Thomas on 11-30-2022 Albumin [Mass/Vol] 2.9 g/dL 3.2-5.0 [facility] Serum or plasma albumin/glob ulin mass ratioOrdered By: Dr. Thomas on 11-30-2022 Albumin/Globulin [Mass ratio] 0.6 {ratio} 0.9-2.4 [facility] Serum or plasma calcium rena urement (mass/volume)Ordered By: Dr. Thomas on 11-30-2022 Calcium [Mass/Vol] 9.0 mg/dL 8.5-10.1 [facility] Serum or plasma creatinine m easurement (mass/volume)Ordered By: Dr. Thomas on 11-30-2022 Creatinine [Mass/Vol] 1.07 mg/dL 0.55-1.02 [facility] Comment on above: The validity of the calculated GFR & GFRAA in patients over 70 years has not been determined. Clinical correlation is essential. Serum or plasma urea nitroge n measurement (mass/volume)Ordered By: Dr. Thomas on 11-30-2022 Urea nitrogen [Mass/Vol] 15 mg/dL 7-18 [facility] Thin prep Papanicolaou smear with manual screeningOrdered By: Dr. Thomas on 11-30-2022 Thin prep Papanicolaou smear with manual screening 10 U/L 15-37 [facility] Thin prep Papanicolaou smear with manual screening 7 5-15 [facility] Urine Legionella pneumophila antigen detectionOrdered By: Dr. Perez on 11-30-2022 L. pneumophila Ag Ql (U) [facility] pH measurementOrdered By: Dr Ro Thomas on 11-30-2022 pH (Unsp spec) 7.48 [pH] 7.35-7.45 [facility] Absolute lymphocyte countOrd ered By: Dr. Perdomo on 11-28-2022 Lymphocytes Auto (Unsp spec) [#/Vol] 2.94 10*3/uL 0.83-4.51 [facility] Basophil percentageOrdered B y: Dr. Perdomo on 11-28-2022 Basophils/100 WBC (Bld) 0.6 % 0-1 [facility] Chloride [Moles/Vol] 104 mmol/L 98-107 [facility] Eosinophils/100 WBC (Bld) 2.3 % 0-5 [facility] Glucose [Mass/Vol] 112 mg/dL 74-106 [facility] Comment on above: Fasting Glucose resu lt from 100 to 125 mg/dL suggests IMPAIRED HOMEOSTASIS per A.D.A. criteria. Neutrophils (Bld) [#/Vol] 11.4 10*3/uL 2.0-7.7 [facility] Neutrophils/100 WBC (Bld) 69.6 % 47-70 [facility] Potassium [Moles/Vol] 4.3 mmol/L 3.5-5.1 [facility] Sodium [Moles/Vol] 141 mmol/L 136-145 [facility] WBC (Bld) [#/Vol] 16.4 10*3/uL 4.4-11.0 [facility] Blood erythrocytes count (nu mber/volume)Ordered By: Dr. Perdomo on 11-28-2022 RBC (Bld) [#/Vol] 4.53 10*6/uL 4.2-5.4 [facility] Blood hemoglobin measurement (mass/volume)Ordered By: Dr. Perdomo on 11-28-2022 Hemoglobin (Bld) [Mass/Vol] 13.1 g/dL 12.0-15.0 [facility] Blood lymphocytes/100 leukoc ytesOrdered By: Dr. Perdomo on 11-28-2022 Lymphocytes/100 WBC (Bld) 18.0 % 19-41 [facility] Blood monocytes/100 leukocyt esOrdered By: Dr. Perdomo on 11-28-2022 Monocytes/100 WBC (Bld) 8.8 % 0-10 [facility] Blood platelet mean volumeOr dered By: Dr. Perdomo on 11-28-2022 Platelet mean volume (Bld) [Entitic vol] 9.5 fL 6.2-12.0 [facility] Determination of erythrocyte mean corpuscular volume (MCV)Ordered By: Dr. Perdomo on 11-28-2022 MCV (RBC) [Entitic vol] 92.9 fL 81-99 [facility] Hematocrit Auto (Bld) [Volum e fraction]Ordered By: Dr. Perdomo on 11-28-2022 Hematocrit (Bld) [Volume fraction] 42.1 % 37-47 [facility] Laboratory - Chemistry and C hemistry - challengeOrdered By: Dr. Perdomo on 11-28-2022 CO2 [Moles/Vol] 31.0 mmol/L 21.0-32.0 [facility] Urea nitrogen/Creatinine [Mass ratio] 15.6 mg/mg 10-20 [facility] Laboratory - Hematology and Cell countsOrdered By: Dr. Perdomo on 11-28-2022 Erythrocyte distribution width (RBC) [Entitic vol] 45.1 fL 35.1-43.9 [facility] Erythrocyte distribution width (RBC) [Ratio] 13.2 % 11.6-14.6 [facility] Immature granulocytes/100 WBC (Bld) 0.700 % 0.0-0.9 [facility] Comment on above: IG% - Immature Granu locytes (promyelocytes, myelocytes and metamyelocytes) > 1% indicates that a LEFT SHIFT is Present. MCH (RBC) [Entitic mass] 28.9 pg 27.0-32.0 [facility] Nucleated RBC/100 WBC (Bld) [Ratio] 0 % 0-5 [facility] MCHC Auto (RBC) [Mass/Vol]Or dered By: Dr. Perdomo on 11-28-2022 MCHC (RBC) [Mass/Vol] 31.1 g/dL 32-36 [facility] No Panel InformationOrdered By: Dr. Perdomo on 11-28-2022 Troponin I High Sensitivity 6 pg/mL 3.0-54.0 [facility] Comment on above: Please Note: New Vijaya t Units and Gender Specific Reference Ranges. For more information see Policy Stat Procedure Campbell High Sensitivity Troponin (TNIH) and attachments. D-Dimer Quantitative (PE/DVT) 0.41 FEU/ug/m 0.27-0.49 [facility] Comment on above: NORMAL D-Dimer level (<0.50) indicates no DVT or PE. Estimated Creatinine Clearance Calc 53.10 ml/min [facility] Estimated GFR (MDRD) Amer 81 mL/min >60 [facility] Comment on above: GFR Calc Estimated GFR (MDRD) Non-Af Amer 67 mL/min >60 [facility] Comment on above: Non- GFR Calc Platelets bldOrdered By: Dr. Perdomo on 11-28-2022 Platelets (Bld) [#/Vol] 338 10*3/uL 150-450 [facility] Serum or plasma calcium rena urement (mass/volume)Ordered By: Dr. Perdomo on 11-28-2022 Calcium [Mass/Vol] 9.1 mg/dL 8.5-10.1 [facility] Serum or plasma creatinine m easurement (mass/volume)Ordered By: Dr. Perdomo on 11-28-2022 Creatinine [Mass/Vol] 0.90 mg/dL 0.55-1.02 [facility] Comment on above: The validity of the calculated GFR & GFRAA in patients over 70 years has not been determined. Clinical correlation is essential. Serum or plasma urea nitroge n measurement (mass/volume)Ordered By: Dr. Perdomo on 11-28-2022 Urea nitrogen [Mass/Vol] 14 mg/dL 7-18 [facility] Thin prep Papanicolaou smear with manual screeningOrdered By: Dr. Perdomo on 11-28-2022 Thin prep Papanicolaou smear with manual screening 6 5-15 [facility] XR Chest PA and Lateralon IMPRESSION: No acute radiographic abnormality. Offset Plate Maker: JING Transcribe Date/Time: Nov 16 2022 10:00A Dictated by : IBRAHIMA ANGELES MD This examination was interpreted and the report reviewed and electronically signed by: IBRAHIMA ANGELES MD on Nov 16 2022 10:02AM [facility] DIVISION OF RADIOLOGY * * *Final Report* [...] Right shoulder prosthesis. DIVISION OF RADIOLOGY Provider, Josiah Still - 11/16/2022 * * *Final Report* * [...] prosthesis. IMPRESSION IMPRESSION: No acute radiographic abnormality. Offset Plate Maker: JING Transcribe Date/Time: Nov 16 2022 10:00A Dictated by : IBRAHIMA ANGELES MD This examination was interpreted and the report reviewed and electronically signed by: IBRAHIMA ANGELES MD on Nov 16 2022 10:02AM EST [facility] XR Chest PA and LateralOrder ed By: Cc Provider on 11-16-2022 [facility] XR Chest PA and Lateralon Radiology Study observation (narrative) [facility] [id number] BLon 06-05 Alpha 1 antitrypsin [Mass/Vol] 158 mg/dL 90 - 200 mg/dL [facility] CT CHEST WO IVCONon 05-25-20 [facility] OXIMETRY WITH AMBULATIONon 0 01-21-2022 [facility] XR CHEST 2V FRONTAL/LATon [facility] XR Chest PA and Lateralon IMPRESSION: No acute radiographic abnormality. Offset Plate Maker: [facility] Transcribe Date/Time: Nov 02 2021 12:07P Dictated [...] spine. [id number]_ USE_DIVISIO N OF RADIOLOGY Provider, [facility] - 11/02/2021 * * *Final Report* * [...] spine. IMPRESSION IMPRESSION: No acute radiographic abnormality. Offset Plate Maker: JING Transcribe Date/Time: Nov 02 2021 12:07P Dictated by : IBRAHIMA ANGELES MD This examination was interpreted and the report reviewed and electronically signed by: IBRAHIMA ANGELES MD on Nov 02 2021 12:07PM EST [facility] Radiology Study observation (narrative) [facility] XR Chest PA and LateralOrder ed By: Ccf Provider on 11-02-2021 [facility] XR Chest PA and Lateralon IMPRESSION: No acute radiographic abnormality. Offset Plate Maker: JING Transcribe Date/Time: Apr 21 2021 10:53A Dictated by : IBRAHIMA ANGELES MD This examination was interpreted and the report reviewed and electronically signed by: IBRAHIMA ANGELES MD on Apr 21 2021 10:55AM [facility] DIVISION OF RADIOLOGY * * *Final Report* [...] humeral head prosthesis. DIVISION OF RADIOLOGY Provider, [facility] - 04/21/2021 * * *Final Report* * [...] prosthesis. IMPRESSION IMPRESSION: No acute radiographic abnormality. Offset Plate Maker: [employer] Transcribe Date/Time: Apr 21 2021 10:53A Dictated by : IBRAHIMA ANGELES MD This examination was interpreted and the report reviewed and electronically signed by: IBRAHIMA ANGELES MD on Apr 21 2021 10:55AM EST [facility] Radiology Study observation (narrative) [facility] XR Chest PA and LateralOrder ed By: Ccf Provider on 04-21-2021 [facility] Vital Signs Date Time Vital Sign Value Performing Clinician Facility 04-21-2025 18:36-0400 Body temperature 98.9 [degF] Dr. Julio Draper MD Work Phone: 3(796)[phone] [place] [address] 04-21-2025 18:36-0400 Diastolic blood pressure 57 mm[Hg] Dr. Julio Draper MD Work Phone: 6(986)[phone] [place] [address] 04-21-2025 18:36-0400 Heart rate 84 /min Dr. Julio Draper MD Work Phone: 1(985)539-973769 [place] [address] 04-21-2025 18:36-0400 Respiratory rate 14 /min Dr. Julio Draper MD Work Phone: 8(613)907-107169 [place] [address] 04-21-2025 18:36-0400 SaO2% (BldA) [Mass fraction] 98 % Dr. Julio Draper MD Work Phone: 1(865)161-257241 [place] [address] 04-21-2025 18:36-0400 Systolic blood pressure 120 mm[Hg] Dr. Julio Draper MD Work Phone: 5(304)614-278941 [place] [address] 04-21-2025 17:16-0400 Inhaled oxygen flow rate 3 L/min Dr. Julio Draper MD Work Phone: 7(431)016-124869 [place] [address] 04-21-2025 17:14-0400 Body mass index (BMI) [Ratio] 24.5 kg/m2 Dr. Julio Draper MD Work Phone: 6(074)300-247241 [place] [address] 04-21-2025 17:14-0400 Body weight 64.[address] Julio Draper MD Work Phone: 6(971)295-987241 [place] [address] 04-21-2025 14:36-0400 Body height 162.[address] Julio Draper MD Work Phone: 2(765)524-716169 [place] [address] 04-14-2025 00:17-0400 Body temperature 98.9 [degF] Dr. Julio Draper MD Work Phone: 2(034)309-879969 [place] [address] 04-14-2025 00:17-0400 Diastolic blood pressure 64 mm[Hg] Dr. Julio Draper MD Work Phone: 7(028)149-948569 [place] [address] 04-14-2025 00:17-0400 Heart rate 86 /min Dr. Julio Draper MD Work Phone: 8(893)735-840369 [place] [address] 04-14-2025 00:17-0400 Respiratory rate 18 /min Dr. Julio Draper MD Work Phone: 7(041)992-458269 [place] [address] 04-14-2025 00:17-0400 SaO2% (BldA) [Mass fraction] 98 % Dr. Julio Draper MD Work Phone: 4(103)110-233269 [place] [address] 04-14-2025 00:17-0400 Systolic blood pressure 134 mm[Hg] Dr. Julio Draper MD Work Phone: 7(115)277-410969 [place] [address] 04-13-2025 23:00-0400 Inhaled oxygen flow rate 3 L/min Dr. Julio Draper MD Work Phone: 0(253)329-482969 [place] [address] 04-13-2025 21:50-0400 Body mass index (BMI) [Ratio] 25.2 kg/m2 Dr. Julio Draper MD Work Phone: 5(062)573-876741 [place] [address] 04-13-2025 21:50-0400 Body weight 66.[address] Julio Draper MD Work Phone: [facility] 02-14-2025 09:38-0400 Body height 162.6 cm Julio Draper MD Work Phone: [facility] 02-14-2025 09:38-0400 Body mass index (BMI) [Ratio] 23.92 kg/m2 Julio Draper MD Work Phone: [facility] 02-14-2025 09:38-0400 Body weight 63.2 kg Julio Draper MD Work Phone: [facility] 02-14-2025 09:38-0400 Diastolic blood pressure 76 mm[Hg] Julio Draper MD Work Phone: [facility] 02-14-2025 09:38-0400 Heart rate 80 /min Julio Draper MD Work Phone: [facility] 02-14-2025 09:38-0400 SaO2% (BldA) [Mass fraction] 95 % Julio Draper MD Work Phone: [facility] 02-14-2025 09:38-0400 Systolic blood pressure 136 mm[Hg] Julio Draper MD Work Phone: [facility] 02-11-2025 18:26-0400 Body mass index (BMI) [Ratio] 24.33 kg/m2 Julio Draper MD Work Phone: [facility] 02-11-2025 18:26-0400 Body temperature 97 [degF] Julio Draper MD Work Phone: [facility] 02-11-2025 18:26-0400 Body weight 63.3 kg Julio Draper MD Work Phone: [facility] 02-11-2025 18:26-0400 Diastolic blood pressure 78 mm[Hg] Julio Draper MD Work Phone: [facility] 02-11-2025 18:26-0400 Heart rate 68 /min Julio Draper MD Work Phone: [facility] 02-11-2025 18:26-0400 Respiratory rate 12 /min Julio Draper MD Work Phone: [facility] 02-11-2025 18:26-0400 SaO2% (BldA) [Mass fraction] 89 % Julio Draper MD Work Phone: [facility] 02-11-2025 18:26-0400 Systolic blood pressure 116 mm[Hg] Julio Draper MD Work Phone: [facility] 02-09-2025 19:24-0400 Body temperature 98.6 [degF] Dr. Julio Draper MD Work Phone: [facility] 02-09-2025 19:24-0400 Diastolic blood pressure 63 mm[Hg] Dr. Julio Draper MD Work Phone: [facility] 02-09-2025 19:24-0400 Heart rate 78 /min Dr. Julio Draper MD Work Phone: [facility] 02-09-2025 19:24-0400 Respiratory rate 16 /min Dr. Julio Draper MD Work Phone: [facility] 02-09-2025 19:24-0400 SaO2% (BldA) [Mass fraction] 96 % Dr. Julio Draper MD Work Phone: 0(759)320-440441 [place] [address] 02-09-2025 19:24-0400 Systolic blood pressure 132 mm[Hg] Dr. Julio Draper MD Work Phone: 0(401)603-452241 [place] [address] 02-09-2025 16:10-0400 Inhaled oxygen flow rate 3 L/min Dr. Julio Draper MD Work Phone: [facility] 02-09-2025 14:48-0400 Body height 162.[address] Julio Draper MD Work Phone: 9(842)634-717969 [place] [address] 02-09-2025 14:48-0400 Body mass index (BMI) [Ratio] 23.8 kg/m2 Dr. Julio Draper MD Work Phone: 9(733)953-952541 [place] [address] 02-09-2025 14:48-0400 Body weight [address] Julio Draper MD Work Phone: 9(166)489-272041 [place] [address] 01-24-2025 15:32-0400 Body height 162.[address] Julio Draper MD Work Phone: 7(998)215-938869 [place] [address] 01-24-2025 15:32-0400 Body mass index (BMI) [Ratio] 24 kg/m2 Dr. Julio Draper MD Work Phone: 2(536)136-631469 [place] [address] 01-24-2025 15:32-0400 Body weight 63.[address] Julio Draper MD Work Phone: 2(913)453-399669 [place] [address] 01-24-2025 15:32-0400 Diastolic blood pressure 59 mm[Hg] Dr. Julio Draper MD Work Phone: 6(137)618-850069 [place] [address] 01-24-2025 15:32-0400 Heart rate 96 /min Dr. Julio Draper MD Work Phone: 3(420)622-052369 [place] [address] 01-24-2025 15:32-0400 Inhaled oxygen flow rate 3 L/min Dr. Julio Draper MD Work Phone: 0(523)745-936269 [place] [address] 01-24-2025 15:32-0400 Respiratory rate 18 /min Dr. Julio Draper MD Work Phone: 2(847)921-649269 [place] [address] 01-24-2025 15:32-0400 Systolic blood pressure 116 mm[Hg] Dr. Julio Draper MD Work Phone: 6(932)224-516069 [place] [address] 01-03-2025 10:02-0400 Body height 162.[address] Julio Draper MD Work Phone: 5(035)299-967969 [place] [address] 01-03-2025 10:02-0400 Body weight 65.[address] Julio Draper MD Work Phone: 2(870)118-325669 [place] [address] 01-03-2025 10:00-0400 Body mass index (BMI) [Ratio] 25 kg/m2 Dr. Julio Draper MD Work Phone: 8(776)832-363369 [place] [address] 11-14-2024 14:48-0400 Body mass index (BMI) [Ratio] 23.68 kg/m2 Jean-Pierre Vitale APRN.CNP Work Phone: [facility] 11-14-2024 14:48-0400 Body weight 61.6 kg Jean-Pierre Click RES[employer] MANAGER.[employer] Work Phone: [facility] 11-14-2024 14:48-0400 Diastolic blood pressure 60 mm[Hg] Jean-Pierre Click RESORT MANAGER.[employer] Work Phone: [facility] 11-14-2024 14:48-0400 Heart rate 89 /min Jean-Pierre Click RESORT MANAGER.[employer] Work Phone: [facility] 11-14-2024 14:48-0400 Respiratory rate 17 /min Jean-Pierre Click RESORT MANAGER.[employer] Work Phone: [facility] 11-14-2024 14:48-0400 SaO2% (BldA) [Mass fraction] 90 % Jean-Pierre Click RESORT MANAGER.[employer] Work Phone: [facility] 11-14-2024 14:48-0400 Systolic blood pressure 120 mm[Hg] Jean-Pierre Click RESORT MANAGER.[employer] Work Phone: [facility] 11-13-2024 10:03-0400 Body mass index (BMI) [Ratio] 23.83 kg/m2 Julio Draper MD Work Phone: [facility] 11-13-2024 10:03-0400 Body weight 62 kg Julio Draper MD Work Phone: [facility] 11-13-2024 10:03-0400 Diastolic blood pressure 64 mm[Hg] Julio Draper MD Work Phone: [facility] 11-13-2024 10:03-0400 Heart rate 80 /min Julio Draper MD Work Phone: [facility] 11-13-2024 10:03-0400 SaO2% (BldA) [Mass fraction] 98 % Julio Draper MD Work Phone: [facility] 11-13-2024 10:03-0400 Systolic blood pressure 120 mm[Hg] Julio Draper MD Work Phone: [facility] 11-01-2024 11:32-0400 Body height 162.[address] Julio Draper MD Work Phone: 8(236)208-315469 [place] [address] 11-01-2024 11:32-0400 Body mass index (BMI) [Ratio] 23.5 kg/m2 Dr. Julio Draper MD Work Phone: 8(680)164-612969 [place] [address] 11-01-2024 11:32-0400 Body weight 62.[address] Julio Draper MD Work Phone: 1(740)418-212869 [place] [address] 11-01-2024 11:32-0400 Diastolic blood pressure 65 mm[Hg] Dr. Julio Draper MD Work Phone: 3(636)186-195269 [place] [address] 11-01-2024 11:32-0400 Heart rate 86 /min Dr. Julio Draper MD Work Phone: 2(358)092-671269 [place] [address] 11-01-2024 11:32-0400 Inhaled oxygen flow rate 4 L/min Dr. Julio Draper MD Work Phone: 2(050)380-590569 [place] [address] 11-01-2024 11:32-0400 Respiratory rate 18 /min Dr. Julio Draper MD Work Phone: 0(686)616-663469 [place] [address] 11-01-2024 11:32-0400 SaO2% (BldA) [Mass fraction] 88 % Dr. Julio Draper MD Work Phone: 3(511)375-154469 [place] [address] 11-01-2024 11:32-0400 Systolic blood pressure 112 mm[Hg] Dr. Julio Draper MD Work Phone: 8(960)438-891469 [place] [address] 10-31-2024 14:17-0400 Body temperature 98.3 [degF] Dr. Julio Draper MD Work Phone: 1(415)019-937269 [place] [address] 10-31-2024 14:17-0400 Diastolic blood pressure 67 mm[Hg] Dr. Julio Draper MD Work Phone: 5(004)049-306169 [place] [address] 10-31-2024 14:17-0400 Heart rate 86 /min Dr. Julio Draper MD Work Phone: [facility] 10-31-2024 14:17-0400 Respiratory rate 16 /min Dr. Julio Draper MD Work Phone: [facility] 10-31-2024 14:17-0400 SaO2% (BldA) [Mass fraction] 100 % Dr. Julio Draper MD Work Phone: [facility] 10-31-2024 14:17-0400 Systolic blood pressure 127 mm[Hg] Dr. Julio Draper MD Work Phone: [facility] 10-31-2024 09:53-0400 Body mass index (BMI) [Ratio] 24.1 kg/m2 Dr. Julio Draper MD Work Phone: [facility] 10-31-2024 09:53-0400 Body weight 63.[address] Julio Draper MD Work Phone: 9(039)517-810241 [place] [address] 10-31-2024 09:53-0400 Inhaled oxygen flow rate 3 L/min Dr. Julio Draper MD Work Phone: [facility] 10-08-2024 18:54-0400 Body mass index (BMI) [Ratio] 22.87 kg/m2 Julio Draper MD Work Phone: [facility] 10-08-2024 18:54-0400 Body weight 59.5 kg Julio Draper MD Work Phone: [facility] 10-08-2024 18:54-0400 Diastolic blood pressure 70 mm[Hg] Julio Draper MD Work Phone: [facility] 10-08-2024 18:54-0400 Heart rate 84 /min Julio Draper MD Work Phone: [facility] 10-08-2024 18:54-0400 SaO2% (BldA) [Mass fraction] 97 % Julio Draper MD Work Phone: [facility] 10-08-2024 18:54-0400 Systolic blood pressure 118 mm[Hg] Julio Draper MD Work Phone: [facility] 09-20-2024 10:40-0400 Body temperature 98 [degF] Dr. Julio Draper MD Work Phone: [facility] 09-20-2024 10:40-0400 Body weight 60.[address] Julio Draper MD Work Phone: [facility] 09-20-2024 10:40-0400 Diastolic blood pressure 64 mm[Hg] Dr. Julio Draper MD Work Phone: 7(376)626-315060 [address] 09-20-2024 10:40-0400 Heart rate 103 /min Dr. Julio Draper MD Work Phone: [facility] 09-20-2024 10:40-0400 Inhaled oxygen flow rate 2 L/min Dr. Julio Draper MD Work Phone: [facility] 09-20-2024 10:40-0400 Respiratory rate 16 /min Dr. Julio Draper MD Work Phone: [facility] 09-20-2024 10:40-0400 SaO2% (BldA) [Mass fraction] 94 % Dr. Julio Draper MD Work Phone: [facility] 09-20-2024 10:40-0400 Systolic blood pressure 117 mm[Hg] Dr. Julio Draper MD Work Phone: [facility] 09-19-2024 16:33-0400 Body mass index (BMI) [Ratio] 22.66 kg/m2 Julio Draper MD Work Phone: [facility] 09-19-2024 16:33-0400 Body temperature 97.59 [degF] Julio Draper MD Work Phone: [facility] 09-19-2024 16:33-0400 Body weight 58.97 kg Julio Draper MD Work Phone: [facility] 09-19-2024 16:33-0400 Diastolic blood pressure 58 mm[Hg] Julio Draper MD Work Phone: [facility] 09-19-2024 16:33-0400 Heart rate 100 /min Julio Draper MD Work Phone: [facility] 09-19-2024 16:33-0400 Systolic blood pressure 110 mm[Hg] Julio Draper MD Work Phone: [facility] 09-17-2024 20:52-0400 Body temperature 98 [degF] Dr. Julio Draper MD Work Phone: [facility] 09-17-2024 20:52-0400 Diastolic blood pressure 76 mm[Hg] Dr. Julio Draper MD Work Phone: [facility] 09-17-2024 20:52-0400 Heart rate 79 /min Dr. Julio Draper MD Work Phone: [facility] 09-17-2024 20:52-0400 Respiratory rate 16 /min Dr. Julio Draper MD Work Phone: [facility] 09-17-2024 20:52-0400 SaO2% (BldA) [Mass fraction] 95 % Dr. Julio Draper MD Work Phone: [facility] 09-17-2024 20:52-0400 Systolic blood pressure 111 mm[Hg] Dr. Julio Draper MD Work Phone: [facility] 09-17-2024 17:11-0400 Body height 162.[address] Julio Draper MD Work Phone: [facility] 09-17-2024 17:11-0400 Inhaled oxygen flow rate 3 L/min Dr. Julio Draper MD Work Phone: [facility] 09-06-2024 07:26-0500 Body weight 64.[address] Julio Draper MD Work Phone: [facility] 09-04-2024 13:04-0500 Body mass index (BMI) [Ratio] 22.32 kg/m2 Jean-Pierre Click RESORT MANAGER.[employer] Work Phone: [facility] 09-04-2024 13:04-0500 Body weight 58.06 kg Jean-Pierre Click RESORT MANAGER.[employer]ER Work Phone: [facility] 09-04-2024 13:04-0500 Diastolic blood pressure 67 mm[Hg] Jean-Pierre Click RESORT MANAGER.[employer]ER Work Phone: [facility] 09-04-2024 13:04-0500 Heart rate 96 /min Jean-Pierre Click RESORT MANAGER.[employer]ER Work Phone: [facility] 09-04-2024 13:04-0500 SaO2% (BldA) [Mass fraction] 91 % Jean-Pierre Click RESORT MANAGER.[employer] Work Phone: [facility] 09-04-2024 13:04-0500 Systolic blood pressure 123 mm[Hg] Jean-Pierre Click RESORT MANAGER.[employer]ER Work Phone: [facility] 08-14-2024 11:24-0500 Body mass index (BMI) [Ratio] 23.71 kg/m2 Julio Draper MD Work Phone: [facility] 08-14-2024 11:24-0500 Body temperature 97.3 [degF] Julio Draper MD Work Phone: [facility] 08-14-2024 11:24-0500 Body weight 61.69 kg Julio Draper MD Work Phone: [facility] 08-14-2024 11:24-0500 Diastolic blood pressure 60 mm[Hg] Julio Draper MD Work Phone: [facility] 08-14-2024 11:24-0500 Heart rate 104 /min Julio Draper MD Work Phone: [facility] 08-14-2024 11:24-0500 Systolic blood pressure 134 mm[Hg] Julio Draper MD Work Phone: [facility] 08-10-2024 12:19-0500 Body temperature 98.5 [degF] Dr. Julio Draper MD Work Phone: 1(226)244-814069 [place] [address] 08-10-2024 12:19-0500 Diastolic blood pressure 79 mm[Hg] Dr. Julio Draper MD Work Phone: 6(333)522-018369 [place] [address] 08-10-2024 12:19-0500 Heart rate 105 /min Dr. Julio Draper MD Work Phone: 5(949)997-066769 [place] [address] 08-10-2024 12:19-0500 Inhaled oxygen flow rate 3 L/min Dr. Juloi Draper MD Work Phone: 0(692)195-900069 [place] [address] 08-10-2024 12:19-0500 Respiratory rate 18 /min Dr. Julio Draper MD Work Phone: 1(669)793-309969 [place] [address] 08-10-2024 12:19-0500 SaO2% (BldA) [Mass fraction] 96 % Dr. Julio Draper MD Work Phone: 5(032)206-460769 [place] [address] 08-10-2024 12:19-0500 Systolic blood pressure 157 mm[Hg] Dr. Julio Draper MD Work Phone: 3(182)959-171269 [place] [address] 08-10-2024 11:30-0500 Body mass index (BMI) [Ratio] 24.4 kg/m2 Dr. Julio Draper MD Work Phone: 7(872)379-771869 [place] [address] 08-10-2024 11:30-0500 Body weight 64.[address] Julio Draper MD Work Phone: 7(653)805-420769 [place] [address] 08-03-2024 01:00-0500 Body temperature 99.8 [degF] Dr. Julio Draper MD Work Phone: 5(054)770-119369 [place] [address] 08-03-2024 01:00-0500 Diastolic blood pressure 66 mm[Hg] Dr. Julio Draper MD Work Phone: 3(915)915-742969 [place] [address] 08-03-2024 01:00-0500 Heart rate 102 /min Dr. Julio Draper MD Work Phone: 7(145)936-861569 [place] [address] 08-03-2024 01:00-0500 Respiratory rate 16 /min Dr. Julio Draper MD Work Phone: 0(912)451-128269 [place] [address] 08-03-2024 01:00-0500 SaO2% (BldA) [Mass fraction] 97 % Dr. Julio Draper MD Work Phone: 3(194)406-109869 [place] [address] 08-03-2024 01:00-0500 Systolic blood pressure 144 mm[Hg] Dr. Julio Draper MD Work Phone: 4(906)573-511769 [place] [address] 08-03-2024 00:00-0500 Inhaled oxygen flow rate 4 L/min Dr. Julio Draper MD Work Phone: 1(870)289-476869 [place] [address] 08-02-2024 22:49-0500 Body mass index (BMI) [Ratio] 25.4 kg/m2 Dr. Julio Draper MD Work Phone: 5(785)078-735369 [place] [address] 08-02-2024 22:49-0500 Body weight 65.[address] Julio Draper MD Work Phone: 6(451)445-213769 [place] [address] 07-31-2024 11:37-0500 Body mass index (BMI) [Ratio] 23.87 kg/m2 Julio Draper MD Work Phone: [facility] 07-31-2024 11:37-0500 Body temperature 96.49 [degF] Julio Draper MD Work Phone: [facility] 07-31-2024 11:37-0500 Body weight 62.1 kg Julio Draper MD Work Phone: [facility] 07-31-2024 11:37-0500 Diastolic blood pressure 64 mm[Hg] Julio Draper MD Work Phone: [facility] 07-31-2024 11:37-0500 Heart rate 92 /min Julio Draper MD Work Phone: [facility] 07-31-2024 11:37-0500 SaO2% (BldA) [Mass fraction] 97 % Julio Draper MD Work Phone: [facility] 07-31-2024 11:37-0500 Systolic blood pressure 136 mm[Hg] Julio Draper MD Work Phone: [facility] 07-30-2024 08:03-0500 Body mass index (BMI) [Ratio] 25.3 kg/m2 Dr. Julio Draper MD Work Phone: [facility] 07-27-2024 14:32-0500 Body temperature 98.4 [degF] Dr. Julio Draper MD Work Phone: 4(877)610-649569 [place] [address] 07-27-2024 14:32-0500 Diastolic blood pressure 61 mm[Hg] Dr. Julio Draper MD Work Phone: 8(573)952-073769 [place] [address] 07-27-2024 14:32-0500 Heart rate 88 /min Dr. Julio Draper MD Work Phone: 9(978)450-829441 [place] [address] 07-27-2024 14:32-0500 Inhaled oxygen flow rate 3 L/min Dr. Julio Draper MD Work Phone: 9(237)862-776569 [place] [address] 07-27-2024 14:32-0500 Respiratory rate 18 /min Dr. Julio Draper MD Work Phone: 6(243)743-309769 [place] [address] 07-27-2024 14:32-0500 SaO2% (BldA) [Mass fraction] 97 % Dr. Julio Draper MD Work Phone: 0(858)245-754441 [place] [address] 07-27-2024 14:32-0500 Systolic blood pressure 123 mm[Hg] Dr. Julio Draper MD Work Phone: 9(304)041-717869 [place] [address] 07-27-2024 10:48-0500 Body mass index (BMI) [Ratio] 22.6 kg/m2 Dr. Julio Draper MD Work Phone: 1(556)204-587769 [place] [address] 07-27-2024 10:48-0500 Body weight 60.[address] Julio Draper MD Work Phone: 7(857)498-841669 [place] [address] 07-23-2024 16:17-0500 Inhaled oxygen concentration 5 % Dr. Julio Draper MD Work Phone: [facility] 07-18-2024 11:05-0500 Body temperature 98.4 [degF] Julio Draper MD Work Phone: [facility] 07-18-2024 11:05-0500 Diastolic blood pressure 74 mm[Hg] Julio Draper MD Work Phone: [facility] 07-18-2024 11:05-0500 Heart rate 88 /min Julio Draper MD Work Phone: [facility] 07-18-2024 11:05-0500 Respiratory rate 1 /min Julio Draper MD Work Phone: [facility] 07-18-2024 11:05-0500 Systolic blood pressure 126 mm[Hg] Julio Draper MD Work Phone: [facility] 07-11-2024 15:02-0500 Heart rate 88 /min Dr. Julio Draper MD Work Phone: [facility] 07-11-2024 15:02-0500 Respiratory rate 18 /min Dr. Julio Draper MD Work Phone: [facility] 07-11-2024 14:30-0500 Body temperature 97 [degF] Dr. Julio Draper MD Work Phone: [facility] 07-11-2024 14:30-0500 Diastolic blood pressure 77 mm[Hg] Dr. Julio Draper MD Work Phone: [facility] 07-11-2024 14:30-0500 Inhaled oxygen flow rate 3 L/min Dr. Julio Draper MD Work Phone: [facility] 07-11-2024 14:30-0500 SaO2% (BldA) [Mass fraction] 95 % Dr. Julio Draper MD Work Phone: [facility] 07-11-2024 14:30-0500 Systolic blood pressure 128 mm[Hg] Dr. Julio Draper MD Work Phone: [facility] 07-11-2024 12:35-0500 Body mass index (BMI) [Ratio] 23.3 kg/m2 Dr. Julio Draper MD Work Phone: [facility] 07-11-2024 12:35-0500 Body weight 62.[address] Julio Draper MD Work Phone: [facility] 07-05-2024 13:21-0500 Body mass index (BMI) [Ratio] 24.52 kg/m2 Julio Draper MD Work Phone: [facility] 07-05-2024 13:21-0500 Body temperature 97.9 [degF] Julio Draper MD Work Phone: [facility] 07-05-2024 13:21-0500 Body weight 63.8 kg Julio Draper MD Work Phone: [facility] 07-05-2024 13:21-0500 Diastolic blood pressure 64 mm[Hg] Julio Draper MD Work Phone: [facility] 07-05-2024 13:21-0500 Heart rate 104 /min Julio Draper MD Work Phone: [facility] 07-05-2024 13:21-0500 Respiratory rate 16 /min Julio Draper MD Work Phone: [facility] 07-05-2024 13:21-0500 SaO2% (BldA) [Mass fraction] 97 % Julio Draper MD Work Phone: [facility] 07-05-2024 13:21-0500 Systolic blood pressure 142 mm[Hg] Julio Draper MD Work Phone: [facility] 07-03-2024 16:50-0500 Body temperature 97.8 [degF] Dr. Julio Draper MD Work Phone: [facility] 07-03-2024 16:50-0500 Diastolic blood pressure 76 mm[Hg] Dr. Julio Draper MD Work Phone: 7(416)766-075569 [place] [address] 07-03-2024 16:50-0500 Heart rate 86 /min Dr. Julio Draper MD Work Phone: 5(684)577-943869 [place] [address] 07-03-2024 16:50-0500 Respiratory rate 15 /min Dr. Julio Draper MD Work Phone: 4(532)472-708069 [place] [address] 07-03-2024 16:50-0500 SaO2% (BldA) [Mass fraction] 95 % Dr. Julio Draper MD Work Phone: 5(800)958-916669 [place] [address] 07-03-2024 16:50-0500 Systolic blood pressure 166 mm[Hg] Dr. Julio Draper MD Work Phone: 5(639)843-721669 [place] [address] 06-19-2024 14:36-0500 Body temperature 98.2 [degF] Dr. Julio Draper MD Work Phone: 6(146)164-613169 [place] [address] 06-19-2024 14:36-0500 Body weight [address] Julio Draper MD Work Phone: 4(320)772-104869 [place] [address] 06-19-2024 14:36-0500 Diastolic blood pressure 59 mm[Hg] Dr. Julio Draper MD Work Phone: 7(527)382-879269 [place] [address] 06-19-2024 14:36-0500 Heart rate 95 /min Dr. Julio Draper MD Work Phone: 6(800)835-834269 [place] [address] 06-19-2024 14:36-0500 Inhaled oxygen flow rate 2.5 L/min Dr. Julio Draper MD Work Phone: 8(117)754-626069 [place] [address] 06-19-2024 14:36-0500 Respiratory rate 16 /min Dr. Julio Draper MD Work Phone: 8(070)526-762269 [place] [address] 06-19-2024 14:36-0500 SaO2% (BldA) [Mass fraction] 94 % Dr. Julio Draper MD Work Phone: [facility] 06-19-2024 14:36-0500 Systolic blood pressure 115 mm[Hg] Dr. Julio Draper MD Work Phone: [facility] 06-07-2024 13:12-0500 Body mass index (BMI) [Ratio] 25.8 kg/m2 Magali Nieves MD Work Phone: 5(532)673-143626 [place] [address] 06-07-2024 13:12-0500 Body weight 67.13 kg Magali Nieves MD Work Phone: 2(017)852-601726 [place] [address] 06-07-2024 13:12-0500 Diastolic blood pressure 62 mm[Hg] Magali Nieves MD Work Phone: 0(672)098-910626 [place] [address] 06-07-2024 13:12-0500 Heart rate 95 /min Magali Nieves MD Work Phone: 6(159)450-553526 [place] [address] 06-07-2024 13:12-0500 Respiratory rate 17 /min Magali Nieves MD Work Phone: [facility] 06-07-2024 13:12-0500 SaO2% (BldA) [Mass fraction] 93 % Magali Nieves MD Work Phone: [facility] 06-07-2024 13:12-0500 Systolic blood pressure 128 mm[Hg] Magali Nieves MD Work Phone: [facility] 06-05-2024 16:30-0500 Body temperature 98.9 [degF] Dr. Julio Draper MD Work Phone: [facility] 06-05-2024 16:30-0500 Diastolic blood pressure 63 mm[Hg] Dr. Julio Draper MD Work Phone: 1(827)655-236469 [place] [address] 06-05-2024 16:30-0500 Heart rate 85 /min Dr. Julio Draper MD Work Phone: 2(479)554-233269 [place] [address] 06-05-2024 16:30-0500 Inhaled oxygen flow rate 3 L/min Dr. Julio Draper MD Work Phone: 6(023)256-944569 [place] [address] 06-05-2024 16:30-0500 Respiratory rate 20 /min Dr. Julio Draper MD Work Phone: 4(471)164-726869 [place] [address] 06-05-2024 16:30-0500 SaO2% (BldA) [Mass fraction] 98 % Dr. Julio Draper MD Work Phone: 3(362)879-307269 [place] [address] 06-05-2024 16:30-0500 Systolic blood pressure 125 mm[Hg] Dr. Julio Draper MD Work Phone: 2(813)920-115669 [place] [address] 05-24-2024 13:37-0500 Body temperature 98 [degF] Dr. Julio Draper MD Work Phone: 0(986)191-118369 [place] [address] 05-24-2024 13:37-0500 Body weight 65.[address] Julio Draper MD Work Phone: 0(409)779-895669 [place] [address] 05-24-2024 13:37-0500 Diastolic blood pressure 69 mm[Hg] Dr. Julio Draper MD Work Phone: 6(396)516-787769 [place] [address] 05-24-2024 13:37-0500 Heart rate 98 /min Dr. Julio Draper MD Work Phone: 4(093)249-730969 [place] [address] 05-24-2024 13:37-0500 Inhaled oxygen flow rate 4 L/min Dr. Julio Draper MD Work Phone: 2(793)107-702469 [place] [address] 05-24-2024 13:37-0500 Respiratory rate 16 /min Dr. Julio Draper MD Work Phone: 6(156)586-457369 [place] [address] 05-24-2024 13:37-0500 SaO2% (BldA) [Mass fraction] 95 % Dr. Julio Draper MD Work Phone: 1(307)409-686569 [place] [address] 05-24-2024 13:37-0500 Systolic blood pressure 133 mm[Hg] Dr. Julio Draper MD Work Phone: 1(281)610-727369 [place] [address] 05-15-2024 09:56-0500 Body mass index (BMI) [Ratio] 25.37 kg/m2 Julio Draper MD Work Phone: [facility] 05-15-2024 09:56-0500 Body temperature 98.1 [degF] Julio Draper MD Work Phone: [facility] 05-15-2024 09:56-0500 Body weight 66 kg Julio Draper MD Work Phone: [facility] 05-15-2024 09:56-0500 Diastolic blood pressure 62 mm[Hg] Julio Draper MD Work Phone: [facility] 05-15-2024 09:56-0500 Heart rate 94 /min Julio Draper MD Work Phone: [facility] 05-15-2024 09:56-0500 Respiratory rate 18 /min Julio Draper MD Work Phone: [facility] 05-15-2024 09:56-0500 SaO2% (BldA) [Mass fraction] 94 % Julio Draper MD Work Phone: [facility] 05-15-2024 09:56-0500 Systolic blood pressure 140 mm[Hg] Julio Draper MD Work Phone: [facility] 04-12-2024 10:39-0400 Body mass index (BMI) [Ratio] 24.37 kg/m2 Julio Draper MD Work Phone: [facility] 04-12-2024 10:39-0400 Body temperature 98.2 [degF] Julio Draper MD Work Phone: [facility] 04-12-2024 10:39-0400 Body weight 63.4 kg Julio Draper MD Work Phone: [facility] 04-12-2024 10:39-0400 Diastolic blood pressure 62 mm[Hg] Julio Draper MD Work Phone: [facility] 04-12-2024 10:39-0400 Heart rate 96 /min Julio Draper MD Work Phone: [facility] 04-12-2024 10:39-0400 Respiratory rate 18 /min Julio Draper MD Work Phone: [facility] 04-12-2024 10:39-0400 SaO2% (BldA) [Mass fraction] 94 % Julio Draper MD Work Phone: [facility] 04-12-2024 10:39-0400 Systolic blood pressure 124 mm[Hg] Julio Draper MD Work Phone: [facility] 02-20-2024 14:50-0400 Diastolic blood pressure 61 mm[Hg] Dylon Laird MD Work Phone: [facility] 02-20-2024 14:50-0400 Heart rate 54 /min Dylon Laird MD Work Phone: [facility] 02-20-2024 14:50-0400 SaO2% (BldA) [Mass fraction] 100 % Dylon Laird MD Work Phone: [facility] 02-20-2024 14:50-0400 Systolic blood pressure 126 mm[Hg] Dylon Laird MD Work Phone: [facility] 02-20-2024 14:24-0400 Body temperature 96.8 [degF] Dylon Laird MD Work Phone: [facility] 02-20-2024 14:24-0400 Respiratory rate 16 /min Dylon Laird MD Work Phone: [facility] 02-20-2024 12:42-0400 Body height 161.3 cm Dylon Laird MD Work Phone: [facility] 02-20-2024 12:42-0400 Body mass index (BMI) [Ratio] 24.06 kg/m2 Dylon Laird MD Work Phone: [facility] 02-20-2024 12:42-0400 Body weight 62.6 kg Dylon Laird MD Work Phone: [facility] 11-11-2023 14:57-0400 Body height 161.3 cm Julio Draper MD Work Phone: [facility] 11-11-2023 14:57-0400 Body mass index (BMI) [Ratio] 22.14 kg/m2 Julio Draper MD Work Phone: [facility] 11-11-2023 14:57-0400 Body weight 57.61 kg Julio Draper MD Work Phone: [facility] 11-11-2023 14:57-0400 Diastolic blood pressure 58 mm[Hg] Julio Draper MD Work Phone: [facility] 11-11-2023 14:57-0400 Heart rate 76 /min Julio Draper MD Work Phone: [facility] 11-11-2023 14:57-0400 Respiratory rate 16 /min Julio Draper MD Work Phone: [facility] 11-11-2023 14:57-0400 SaO2% (BldA) [Mass fraction] 95 % Julio Draper MD Work Phone: [facility] Comment on above: 3L O2 11-11-2023 14:57-0400 Systolic blood pressure 86 mm[Hg] Julio Draper MD Work Phone: [facility] 11-08-2023 14:21-0400 Body mass index (BMI) [Ratio] 20.77 kg/m2 Luna Swartz PA-C Work Phone: [facility] 11-08-2023 14:21-0400 Body weight 54.88 kg Luna Swartz PA-C Work Phone: [facility] 11-08-2023 14:21-0400 Diastolic blood pressure 66 mm[Hg] Luna Swartz PA-C Work Phone: [facility] 11-08-2023 14:21-0400 Heart rate 72 /min Luna Swartz PA-C Work Phone: [facility] 11-08-2023 14:21-0400 Respiratory rate 16 /min Luna Swartz PA-C Work Phone: [facility] 11-08-2023 14:21-0400 SaO2% (BldA) [Mass fraction] 93 % Luna Swartz PA-C Work Phone: [facility] Comment on above: 3L via demand [place] 11-08-2023 14:21-0400 Systolic blood pressure 132 mm[Hg] Luna Swartz PA-C Work Phone: [facility] 10-31-2023 17:23-0400 Body mass index (BMI) [Ratio] 21.63 kg/m2 Julio Draper MD Work Phone: [facility] 10-31-2023 17:23-0400 Body temperature 98.6 [degF] Julio Draper MD Work Phone: [facility] 10-31-2023 17:23-0400 Body weight 57.15 kg Julio Draper MD Work Phone: [facility] 10-31-2023 17:23-0400 Diastolic blood pressure 60 mm[Hg] Julio Draper MD Work Phone: [facility] 10-31-2023 17:23-0400 Heart rate 68 /min Julio Draper MD Work Phone: [facility] 10-31-2023 17:23-0400 Respiratory rate 12 /min Julio Draper MD Work Phone: [facility] 10-31-2023 17:23-0400 Systolic blood pressure 116 mm[Hg] Julio Draper MD Work Phone: [facility] 09-01-2023 13:53-0500 Body temperature 97.1 [degF] Dr. Julio Draper Work Phone: [facility] 09-01-2023 13:53-0500 Diastolic blood pressure 82 mm[Hg] Dr. Julio Draper Work Phone: [facility] 09-01-2023 13:53-0500 Heart rate 80 /min Dr. Julio Draper Work Phone: [facility] 09-01-2023 13:53-0500 Inhaled oxygen flow rate 2 L/min Dr. Julio Draper Work Phone: [facility] 09-01-2023 13:53-0500 Respiratory rate 16 /min Dr. Julio Draper Work Phone: [facility] 09-01-2023 13:53-0500 SaO2% (BldA) [Mass fraction] 100 % Dr. Julio Draper Work Phone: [facility] 09-01-2023 13:53-0500 Systolic blood pressure 127 mm[Hg] Dr. Julio Draper Work Phone: [facility] 09-01-2023 09:37-0500 Body height 162.[address] Julio Draper Work Phone: [facility] 08-25-2023 14:04-0500 Body temperature 98.01 [degF] Julio Draper MD Work Phone: [facility] 08-25-2023 14:04-0500 Body weight 59.88 kg Julio Draper MD Work Phone: [facility] 08-25-2023 14:04-0500 Diastolic blood pressure 58 mm[Hg] Julio Draper MD Work Phone: [facility] 08-25-2023 14:04-0500 Heart rate 79 /min Julio Draper MD Work Phone: [facility] 08-25-2023 14:04-0500 SaO2% (BldA) [Mass fraction] 99 % Julio Draper MD Work Phone: [facility] 08-25-2023 14:04-0500 Systolic blood pressure 112 mm[Hg] Julio Draper MD Work Phone: [facility] 08-16-2023 13:32-0500 Diastolic blood pressure 82 mm[Hg] Magali Nieves MD Work Phone: [facility] 08-16-2023 13:32-0500 Heart rate 74 /min Magali Nieves MD Work Phone: [facility] 08-16-2023 13:32-0500 SaO2% (BldA) [Mass fraction] 99 % Magali Nieves MD Work Phone: [facility] 08-16-2023 13:32-0500 Systolic blood pressure 120 mm[Hg] Magali Nieves MD Work Phone: [facility] 07-09-2023 09:05-0500 Diastolic blood pressure 67 mm[Hg] Dr. Julio Draper Work Phone: 0(827)166-390569 [place] [address] 07-09-2023 09:05-0500 Heart rate 84 /min Dr. Julio Draper Work Phone: 8(047)576-300469 [place] [address] 07-09-2023 09:05-0500 Systolic blood pressure 111 mm[Hg] Dr. Julio Draper Work Phone: 0(861)972-193969 [place] [address] 07-09-2023 08:17-0500 Body temperature 98.7 [degF] Dr. Julio Draper Work Phone: 9(762)548-685269 [place] [address] 07-09-2023 08:17-0500 Inhaled oxygen flow rate 4 L/min Dr. Julio Draper Work Phone: 0(062)234-872941 [place] [address] 07-09-2023 08:17-0500 Respiratory rate 32 /min Dr. Julio Draper Work Phone: 1(194)307-211169 [place] [address] 07-09-2023 08:17-0500 SaO2% (BldA) [Mass fraction] 90 % Dr. Julio Draper Work Phone: 0(457)403-647869 [place] [address] 07-08-2023 10:37-0500 Body height 162.[address] Julio Draper Work Phone: 9(272)642-560469 [place] [address] 07-08-2023 10:37-0500 Body weight [address] Julio Draper Work Phone: 4(149)497-179469 [place] [address] 07-07-2023 18:04-0500 Body mass index (BMI) [Ratio] 23.8 kg/m2 Dr. Julio Draper Work Phone: 4(026)289-722969 [place] [address] 07-07-2023 15:07-0500 Body temperature 99.5 [degF] Dr. Julio Draper Work Phone: 2(422)731-663469 [place] [address] 07-07-2023 15:07-0500 Diastolic blood pressure 69 mm[Hg] Dr. Julio Draper Work Phone: 4(474)306-902469 [place] [address] 07-07-2023 15:07-0500 Heart rate 90 /min Dr. Julio Draper Work Phone: 5(575)620-767369 [place] [address] 07-07-2023 15:07-0500 Respiratory rate 18 /min Dr. Julio Draper Work Phone: 2(223)496-152069 [place] [address] 07-07-2023 15:07-0500 SaO2% (BldA) [Mass fraction] 96 % Dr. Julio Draper Work Phone: 5(626)450-994969 [place] [address] 07-07-2023 15:07-0500 Systolic blood pressure 148 mm[Hg] Dr. Julio Draper Work Phone: 1(141)441-639369 [place] [address] 07-07-2023 13:57-0500 Inhaled oxygen flow rate 3 L/min Dr. Julio Draper Work Phone: 0(438)908-612641 [place] [address] 07-07-2023 08:52-0500 Body height 162.[address] Julio Draper Work Phone: 8(692)753-745369 [place] [address] 07-07-2023 08:52-0500 Body mass index (BMI) [Ratio] 21.1 kg/m2 Dr. Julio Draper Work Phone: 2(550)157-815441 [place] [address] 07-07-2023 08:52-0500 Body weight 55.[address] Julio Draper Work Phone: 7(767)707-476541 [place] [address] 07-05-2023 20:51-0500 Diastolic blood pressure 65 mm[Hg] Dr. Julio Draper Work Phone: 5(961)632-817069 [place] [address] 07-05-2023 20:51-0500 SaO2% (BldA) [Mass fraction] 98 % Dr. Julio Draper Work Phone: 1(691)839-250869 [place] [address] 07-05-2023 20:51-0500 Systolic blood pressure 156 mm[Hg] Dr. Julio Draper Work Phone: 9(584)791-311669 [place] [address] 07-05-2023 17:43-0500 Inhaled oxygen flow rate 3 L/min Dr. Julio Draper Work Phone: 9(144)090-678169 [place] [address] 07-05-2023 16:20-0500 Heart rate 83 /min Dr. Julio Draper Work Phone: 0(720)073-413069 [place] [address] 07-05-2023 16:20-0500 Respiratory rate 25 /min Dr. Julio Draper Work Phone: 6(251)856-648469 [place] [address] 07-05-2023 15:50-0500 Body mass index (BMI) [Ratio] 23.8 kg/m2 Dr. Julio Draper Work Phone: 9(279)249-117069 [place] [address] 07-05-2023 15:50-0500 Body weight 63.[address] Julio Draper Work Phone: 9(605)673-773569 [place] [address] 07-05-2023 14:35-0500 Body height 162.[address] Julio Draper Work Phone: 0(081)235-753969 [place] [address] 07-05-2023 14:35-0500 Body temperature 98.2 [degF] Dr. Julio Draper Work Phone: 2(186)963-740569 [place] [address] 06-23-2023 12:20-0500 Body temperature 99.1 [degF] Dr. Julio Draper Work Phone: 7(406)658-239369 [place] [address] 06-23-2023 12:20-0500 Diastolic blood pressure 60 mm[Hg] Dr. Julio Draper Work Phone: 8(963)611-599441 [place] [address] 06-23-2023 12:20-0500 Heart rate 96 /min Dr. Julio Draper Work Phone: 5(051)210-302969 [place] [address] 06-23-2023 12:20-0500 Inhaled oxygen flow rate 2 L/min Dr. Julio Draper Work Phone: 5(597)039-986769 [place] [address] 06-23-2023 12:20-0500 Respiratory rate 15 /min Dr. Julio Draper Work Phone: 4(915)341-675369 [place] [address] 06-23-2023 12:20-0500 SaO2% (BldA) [Mass fraction] 95 % Dr. Julio Draper Work Phone: 3(850)041-773369 [place] [address] 06-23-2023 12:20-0500 Systolic blood pressure 125 mm[Hg] Dr. Julio Draper Work Phone: 9(472)787-566469 [place] [address] 06-23-2023 05:14-0500 Body mass index (BMI) [Ratio] 26.5 kg/m2 Dr. Julio Draper Work Phone: 9(778)993-710569 [place] [address] 06-23-2023 05:14-0500 Body weight 70.[address] Julio Draper Work Phone: 9(694)218-208569 [place] [address] 06-21-2023 11:43-0500 Body height 162.[address] Julio Draper Work Phone: 5(011)445-013669 [place] [address] 06-20-2023 11:49-0500 Diastolic blood pressure 38 mm[Hg] Dr. Julio Draper Work Phone: 7(491)505-059969 [place] [address] 06-20-2023 11:49-0500 Heart rate 66 /min Dr. Julio Draper Work Phone: 4(879)427-620169 [place] [address] 06-20-2023 11:49-0500 Respiratory rate 17 /min Dr. Julio Draper Work Phone: 0(546)859-341469 [place] [address] 06-20-2023 11:49-0500 SaO2% (BldA) [Mass fraction] 100 % Dr. Julio Draper Work Phone: 2(162)357-457469 [place] [address] 06-20-2023 11:49-0500 Systolic blood pressure 103 mm[Hg] Dr. Julio Draper Work Phone: 0(726)134-136369 [place] [address] 06-20-2023 11:32-0500 Inhaled oxygen flow rate 3 L/min Dr. Julio Draper Work Phone: 1(828)639-731869 [place] [address] 06-20-2023 10:08-0500 Body height 165.[address] Julio Draper Work Phone: 5(227)736-866569 [place] [address] 06-20-2023 10:08-0500 Body mass index (BMI) [Ratio] 30.7 kg/m2 Dr. Julio Draper Work Phone: 8(944)187-941069 [place] [address] 06-20-2023 10:08-0500 Body temperature 98.4 [degF] Dr. Julio Draper Work Phone: 0(050)571-789269 [place] [address] 06-20-2023 10:08-0500 Body weight 83.[address] Julio Draper Work Phone: 1(146)612-369869 [place] [address] 06-16-2023 14:42-0500 Body temperature 98.2 [degF] Dr. Julio Draper Work Phone: 7(092)038-414269 [place] [address] 06-16-2023 14:42-0500 Diastolic blood pressure 56 mm[Hg] Dr. Julio Draper Work Phone: 9(703)806-128469 [place] [address] 06-16-2023 14:42-0500 Heart rate 75 /min Dr. Julio Draper Work Phone: 2(884)609-468869 [place] [address] 06-16-2023 14:42-0500 Inhaled oxygen flow rate 2 L/min Dr. Julio Draper Work Phone: 3(278)423-523569 [place] [address] 06-16-2023 14:42-0500 Respiratory rate 17 /min Dr. Julio Draper Work Phone: 9(043)649-396769 [place] [address] 06-16-2023 14:42-0500 SaO2% (BldA) [Mass fraction] 93 % Dr. Julio Draper Work Phone: 6(143)293-225069 [place] [address] 06-16-2023 14:42-0500 Systolic blood pressure 111 mm[Hg] Dr. Julio Draper Work Phone: 9(575)159-506369 [place] [address] 06-16-2023 13:17-0500 Inhaled oxygen flow rate 2 L/min Dr. Julio Draper Work Phone: 6(726)919-902369 [place] [address] 06-16-2023 13:17-0500 SaO2% (BldA) [Mass fraction] 91 % Dr. Julio Draper Work Phone: 5(848)416-148869 [place] [address] 06-16-2023 10:45-0500 Heart rate 73 /min Dr. Julio Draper Work Phone: 7(185)442-445469 [place] [address] 06-16-2023 10:45-0500 Respiratory rate 18 /min Dr. Julio Draper Work Phone: 6(080)090-138369 [place] [address] 06-16-2023 10:22-0500 Body temperature 98.8 [degF] Dr. Julio Draper Work Phone: 5(981)477-413669 [place] [address] 06-16-2023 10:22-0500 Diastolic blood pressure 52 mm[Hg] Dr. Julio Draper Work Phone: 9(311)721-734169 [place] [address] 06-16-2023 10:22-0500 Systolic blood pressure 110 mm[Hg] Dr. Julio Draper Work Phone: 8(930)174-030369 [place] [address] 06-16-2023 05:09-0500 Body mass index (BMI) [Ratio] 26.1 kg/m2 Dr. Julio Draper Work Phone: 5(960)708-752469 [place] [address] 06-16-2023 05:09-0500 Body weight [address] Julio Draper Work Phone: 0(009)663-507169 [place] [address] 06-15-2023 16:02-0500 Body height 162.[address] Julio Draper Work Phone: 3(367)869-600469 [place] [address] 06-09-2023 23:00-0500 Inhaled oxygen concentration 45 % Dr. Julio Draper Work Phone: 7(954)364-329241 [place] [address] 06-06-2023 14:00-0500 Body temperature 99.7 [degF] Dr. Julio Draper Work Phone: 3(932)302-901569 [place] [address] 06-06-2023 14:00-0500 Diastolic blood pressure 73 mm[Hg] Dr. Julio Draper Work Phone: 2(997)781-029569 [place] [address] 06-06-2023 14:00-0500 Systolic blood pressure 145 mm[Hg] Dr. Julio Draper Work Phone: 7(512)152-928269 [place] [address] 06-06-2023 03:46-0500 Heart rate 80 /min Dr. Julio Draper Work Phone: 3(965)279-184969 [place] [address] 06-06-2023 03:46-0500 Inhaled oxygen concentration 32 % Dr. Julio Draper Work Phone: 6(712)265-509569 [place] [address] 06-06-2023 03:46-0500 Respiratory rate 20 /min Dr. Julio Draper Work Phone: 3(868)712-439469 [place] [address] 06-06-2023 03:46-0500 SaO2% (BldA) [Mass fraction] 93 % Dr. Julio Draper Work Phone: 7(168)944-346469 [place] [address] 06-05-2023 20:00-0500 Inhaled oxygen flow rate 60 L/min Dr. Julio Draper Work Phone: 0(166)908-977741 [place] [address] 06-04-2023 03:06-0500 Body mass index (BMI) [Ratio] 28.4 kg/m2 Dr. Julio Draper Work Phone: 0(890)922-133941 [place] [address] 06-04-2023 03:06-0500 Body weight 75.[address] Julio Draper Work Phone: 4(311)315-361769 [place] [address] 06-03-2023 10:29-0500 Body height 162.[address] Julio Draper Work Phone: 1(962)566-353669 [place] [address] 06-02-2023 11:24-0500 Diastolic blood pressure 62 mm[Hg] [facility] 06-02-2023 11:24-0500 Heart rate 103 /min [facility] 06-02-2023 11:24-0500 Respiratory rate 28 /min [facility] 06-02-2023 11:24-0500 SaO2% (BldA) [Mass fraction] 98 % [facility] 06-02-2023 11:24-0500 Systolic blood pressure 118 mm[Hg] [facility] 06-02-2023 10:00-0500 Inhaled oxygen concentration 50 % [facility] 06-02-2023 09:03-0500 Body temperature 100.9 [degF] [facility] 06-02-2023 08:59-0500 Body height 162.[address] [facility] 06-02-2023 08:59-0500 Body mass index (BMI) [Ratio] 28 kg/m2 [facility] 06-02-2023 08:59-0500 Body weight 74.[address] [facility] 03-03-2023 14:22-0400 SaO2% (BldA) [Mass fraction] 88 % Magali Nieves MD Work Phone: [facility] 03-03-2023 13:56-0400 Body weight 68.95 kg Magali Nieves MD Work Phone: [facility] 03-03-2023 13:56-0400 Heart rate 73 /min Magali Nieves MD Work Phone: [facility] 03-03-2023 13:56-0400 Respiratory rate 15 /min Magali Nieves MD Work Phone: [facility] 01-07-2023 15:39-0400 Body temperature 97.81 [degF] Julio Draper MD Work Phone: [facility] 01-07-2023 15:39-0400 Body weight 71.22 kg Julio Draper MD Work Phone: [facility] 01-07-2023 15:39-0400 Diastolic blood pressure 70 mm[Hg] Julio Draper MD Work Phone: [facility] 01-07-2023 15:39-0400 Heart rate 91 /min Julio Draper MD Work Phone: [facility] 01-07-2023 15:39-0400 Respiratory rate 22 /min Julio Draper MD Work Phone: [facility] 01-07-2023 15:39-0400 SaO2% (BldA) [Mass fraction] 94 % Julio Draper MD Work Phone: [facility] 01-07-2023 15:39-0400 Systolic blood pressure 133 mm[Hg] Julio Draper MD Work Phone: [facility] 12-10-2022 14:21-0400 Body weight 69.85 kg Magali Nieves MD Work Phone: [facility] 12-10-2022 14:21-0400 Diastolic blood pressure 76 mm[Hg] Magali Nieves MD Work Phone: [facility] 12-10-2022 14:21-0400 Heart rate 94 /min Magali Nieves MD Work Phone: [facility] 12-10-2022 14:21-0400 Respiratory rate 18 /min Magali Nieves MD Work Phone: [facility] 12-10-2022 14:21-0400 SaO2% (BldA) [Mass fraction] 94 % Magali Nieves MD Work Phone: [facility] 12-10-2022 14:21-0400 Systolic blood pressure 132 mm[Hg] Magali Nieves MD Work Phone: [facility] 12-03-2022 08:16-0400 Body temperature 97.8 [degF] Dr. Julio Draper Work Phone: [facility] 12-03-2022 08:16-0400 Diastolic blood pressure 63 mm[Hg] Dr. Julio Draper Work Phone: [facility] 12-03-2022 08:16-0400 Heart rate 108 /min Dr. Julio Draper Work Phone: 3(443)254-371141 [place] [address] 12-03-2022 08:16-0400 Inhaled oxygen flow rate 2 L/min Dr. Julio Draper Work Phone: 3(868)321-361569 [place] [address] 12-03-2022 08:16-0400 Respiratory rate 20 /min Dr. Julio Draper Work Phone: 4(571)237-767569 [place] [address] 12-03-2022 08:16-0400 SaO2% (BldA) [Mass fraction] 97 % Dr. Julio Draper Work Phone: 5(540)041-634969 [place] [address] 12-03-2022 08:16-0400 Systolic blood pressure 139 mm[Hg] Dr. Julio Draper Work Phone: 1(882)486-258969 [place] [address] 11-30-2022 13:27-0400 Body height 162.[address] Julio Draper Work Phone: 3(355)729-817069 [place] [address] 11-30-2022 13:27-0400 Body mass index (BMI) [Ratio] 26.9 kg/m2 Dr. Julio Draper Work Phone: 7(027)812-142969 [place] [address] 11-30-2022 13:27-0400 Body weight [address] Julio Draper Work Phone: 0(948)968-647941 [place] [address] 11-30-2022 12:47-0400 Body temperature 99.2 [degF] [facility] 11-30-2022 12:47-0400 Diastolic blood pressure 63 mm[Hg] [facility] 11-30-2022 12:47-0400 Heart rate 120 /min [facility] 11-30-2022 12:47-0400 Inhaled oxygen flow rate 3 L/min [facility] 11-30-2022 12:47-0400 Respiratory rate 18 /min [facility] 11-30-2022 12:47-0400 SaO2% (BldA) [Mass fraction] 100 % [facility] 11-30-2022 12:47-0400 Systolic blood pressure 123 mm[Hg] [facility] 11-30-2022 11:29-0400 Body mass index (BMI) [Ratio] 26.8 kg/m2 [facility] 11-30-2022 11:29-0400 Body weight 70.[address] [facility] 11-30-2022 10:36-0400 Body height 162.[address] [facility] 11-28-2022 04:00-0400 Diastolic blood pressure 67 mm[Hg] [facility] 11-28-2022 04:00-0400 Heart rate 98 /min [facility] 11-28-2022 04:00-0400 Respiratory rate 19 /min [facility] 11-28-2022 04:00-0400 SaO2% (BldA) [Mass fraction] 99 % [facility] 11-28-2022 04:00-0400 Systolic blood pressure 132 mm[Hg] [facility] 11-28-2022 03:23-0400 Inhaled oxygen flow rate 2 L/min [facility] 11-28-2022 00:44-0400 Body height 162.[address] [facility] 11-28-2022 00:44-0400 Body mass index (BMI) [Ratio] 27 kg/m2 [facility] 11-28-2022 00:44-0400 Body temperature 97 [degF] [facility] 11-28-2022 00:44-0400 Body weight 71.[address] [facility] 11-15-2022 13:27-0400 Body weight 70.76 kg Tasha Older [employer] Work Phone: [facility] [facility] 11-15-2022 13:27-0400 Diastolic blood pressure 64 mm[Hg] Tasha Older RESORT MANAGER.HEAD SAWYER Work Phone: [facility] 11-15-2022 13:27-0400 Heart rate 97 /min Tasha Older RESORT MANAGER.HEAD SAWYER Work Phone: [facility] 11-15-2022 13:27-0400 Respiratory rate 18 /min Tasha Older RESORT MANAGER.HEAD SAWYER Work Phone: [facility] 11-15-2022 13:27-0400 SaO2% (BldA) [Mass fraction] 94 % Tasha Older RESORT MANAGER.HEAD SAWYER Work Phone: [facility] 11-15-2022 13:27-0400 Systolic blood pressure 140 mm[Hg] Tasha Older RESORT MANAGER.HEAD SAWYER Work Phone: [facility] 11-11-2022 14:32-0400 Body temperature 98.01 [degF] Jessie Older RESORT MANAGER.HEAD SAWYER Work Phone: [facility] 11-11-2022 14:32-0400 Body weight 71.22 kg Jessie Older RESORT MANAGER.HEAD SAWYER Work Phone: [facility] 11-11-2022 14:32-0400 Diastolic blood pressure 90 mm[Hg] Jessie Older RESORT MANAGER.HEAD SAWYER Work Phone: [facility] 11-11-2022 14:32-0400 Heart rate 80 /min Jessie Older RESORT MANAGER.HEAD SAW[employer]ER Work Phone: [facility] 11-11-2022 14:32-0400 Respiratory rate 16 /min Jessie Older RESORT MANAGER.HEAD SAWYER Work Phone: [facility] 11-11-2022 14:32-0400 SaO2% (BldA) [Mass fraction] 92 % Jessie Older RESORT MANAGER.HEAD SAWYER Work Phone: [facility] 11-11-2022 14:32-0400 Systolic blood pressure 138 mm[Hg] Jessie Older RESORT MANAGER.HEAD SAWYER Work Phone: [facility] 05-25-2022 13:14-0500 Body weight 72.58 kg Magali Nieves MD Work Phone: [facility] 05-25-2022 13:14-0500 SaO2% (BldA) [Mass fraction] 98 % Magali Nieves MD Work Phone: [facility] 05-03-2022 13:56-0400 Body temperature 97.7 [degF] Julio Draper MD Work Phone: [facility] 05-03-2022 13:56-0400 Body weight 72.12 kg Julio Draper MD Work Phone: [facility] 05-03-2022 13:56-0400 Diastolic blood pressure 74 mm[Hg] Julio Draper MD Work Phone: [facility] 05-03-2022 13:56-0400 Heart rate 84 /min Julio Draper MD Work Phone: [facility] 05-03-2022 13:56-0400 Respiratory rate 16 /min Julio Draper MD Work Phone: [facility] 05-03-2022 13:56-0400 SaO2% (BldA) [Mass fraction] 97 % Julio Draper MD Work Phone: [facility] 05-03-2022 13:56-0400 Systolic blood pressure 138 mm[Hg] Julio Draper MD Work Phone: [facility] 01-21-2022 15:21-0400 Body height 162.6 cm Luna Fan PA-C Work Phone: [facility] 01-21-2022 15:21-0400 Body weight 71.67 kg Luna Fan PA-C Work Phone: [facility] 01-21-2022 15:21-0400 Heart rate 87 /min Luna Fan PA-C Work Phone: [facility] 01-21-2022 15:21-0400 Respiratory rate 16 /min Luna Fan PA-C Work Phone: [facility] 01-21-2022 15:21-0400 SaO2% (BldA) [Mass fraction] 98 % Luna Fan PA-C Work Phone: [facility] 01-21-2022 15:16-0400 Body height 162.6 cm Respiratory Wstr Work Phone: [facility] 01-21-2022 15:16-0400 Body weight 71.67 kg Respiratory Wstr Work Phone: [facility] 01-21-2022 15:16-0400 Heart rate 87 /min Respiratory Wstr Work Phone: [facility] 01-21-2022 15:16-0400 SaO2% (BldA) [Mass fraction] 98 % Respiratory Wstr Work Phone: [facility] 11-12-2021 12:49-0400 Body weight 71.22 kg Asia Jiménez RESORT MANAGER.NEGOTIATIONS DIRECTOR Work Phone: [facility] 11-12-2021 12:49-0400 Diastolic blood pressure 80 mm[Hg] Asia Jiménez RESORT MANAGER.NEGOTIATIONS DIRECTOR Work Phone: [facility] 11-12-2021 12:49-0400 Heart rate 80 /min Asia Jiménez RESORT MANAGER.NEGOTIATIONS DIRECTOR Work Phone: [facility] 11-12-2021 12:49-0400 Respiratory rate 16 /min Asia Jiménez RESORT MANAGER.NEGOTIATIONS DIRECTOR Work Phone: [facility] 11-12-2021 12:49-0400 Systolic blood pressure 130 mm[Hg] Asia Jiménez RESORT MANAGER.NEGOTIATIONS DIRECTOR Work Phone: [facility] 11-02-2021 11:22-0400 Body temperature 98.1 [degF] Rachel Praisler-Wood RESORT MANAGER.HEAD SAWYER Work Phone: [facility] 11-02-2021 11:22-0400 Body weight 71.4 kg Rachel Praisler-Wood RESORT MANAGER.HEAD SAWYER Work Phone: [facility] 11-02-2021 11:22-0400 Diastolic blood pressure 94 mm[Hg] Rachel Praisler-Wood RESORT MANAGER.HEAD SAWYER Work Phone: [facility] 11-02-2021 11:22-0400 Heart rate 91 /min Rachel Praisler-Wood RESORT MANAGER.HEAD SAWYER Work Phone: [facility] 11-02-2021 11:22-0400 Respiratory rate 22 /min Rachel Praisler-Wood RESORT MANAGER.HEAD SAWYER Work Phone: [facility] 11-02-2021 11:22-0400 SaO2% (BldA) [Mass fraction] 90 % Rachel Mayo APRN.HEAD SAWYER Work Phone: [facility] 11-02-2021 11:22-0400 Systolic blood pressure 132 mm[Hg] Rachel Mayo APRN.HEAD SAWYER Work Phone: [facility] 10-14-2021 10:22-0400 Body temperature 98.01 [degF] Ev Hinkle APRN.HEAD SAWYER Work Phone: [facility] 10-14-2021 10:22-0400 Body weight 71.58 kg Ev Hinkle APRN.HEAD SAWYER Work Phone: [facility] 10-14-2021 10:22-0400 Diastolic blood pressure 82 mm[Hg] Ev Hinkle APRN.HEAD SAWYER Work Phone: [facility] 10-14-2021 10:22-0400 Heart rate 76 /min Ev Hinkle APRN.HEAD SAWYER Work Phone: [facility] 10-14-2021 10:22-0400 Respiratory rate 18 /min Ev Hinkle APRN.HEAD SAWYER Work Phone: [facility] 10-14-2021 10:22-0400 SaO2% (BldA) [Mass fraction] 96 % Ev Hinkle APRN.HEAD SAWYER Work Phone: [facility] 10-14-2021 10:22-0400 Systolic blood pressure 138 mm[Hg] Ev Hinkle APRN.HEAD SAWYER Work Phone: [facility] Encounters Encounter Date Encounter Type Care Provider Facility Start: 04-21-2025 End: 04-21-2025 Emergency department patient visit Julio Draper Facility:[facility] Start: 04-21-2025 End: 04-21-2025 ambulatory JUNIOR GARDUNO Facility:[facility] Start: 04-18-2025 End: 04-18-2025 ambulatory JULIO DRAPER Facility:[facility] Start: 04-18-2025 End: 04-18-2025 ambulatory JULIO DRAPER Facility:[facility] Start: 04-13-2025 End: 04-14-2025 Emergency department patient visit Hoang Foster DO -Emergency Department Work Phone: Start: 04-04-2025 End: 04-04-2025 ambulatory JULIO DRAPER Facility:[facility] Start: 03-12-2025 End: 03-12-2025 Refill Jean-Pierre Vitale APRN.CNP Work Phone: Pulmonary Medicine Comment on above: Refill Request Start: 02-14-2025 End: 02-14-2025 ambulatory JULIO DRAPER Facility:[facility] Start: 02-14-2025 End: 02-14-2025 Patient encounter procedure Julio Draper MD Work Phone: [facility] [place] Comment on above: Vision disturbance ( Primary Dx); Hyperlipidemia, unspecified hyperlipidemia type; Anxiety about health; Screening for depression; Medicare annual wellness visit, initial Start: 02-11-2025 End: 02-11-2025 Office outpatient visit 15 minutes Julio Draper MD Work Phone: [facility] [place] Comment on above: Acute pain of right shoulder (Primary Dx); Chronic obstructive pulmonary disease with acute exacerbation (HCC) Start: 02-11-2025 End: 02-11-2025 ambulatory JULIO DRAPER Facility:[facility] Start: 02-09-2025 End: 02-09-2025 Emergency department patient visit Dr. Julio Draper MD Work Phone: -Emergency Department Work Phone: Start: 01-24-2025 End: 01-24-2025 Patient encounter procedure Lorna Dasilva PA -[facility] Work Phone: Start: 01-24-2025 End: 01-24-[address] Julio Draper MD Work Phone: -[facility] Start: 01-17-2025 ambulatory Cheryl Littlejohn [facility] Start: 01-03-2025 ambulatory Livan Love [facility] Start: 01-03-2025 Non-patient / Non-visit Dr. Livan cantu MD -[facility] Start: 01-03-2025 End: 01-03-2025 Admission to same day surgery center Dr. Livan Love MD -Clinical Laboratory Assistant/Special Procedures Work Phone: Start: 01-03-2025 End: 01-03-[address] Julio Draper MD Work Phone: -Clinical Laboratory Assistant/Special Procedures Start: 11-29-2024 End: 11-29-2024 Telephone encounter Magali Nieves MD Work Phone: [facility] [place] Comment on above: Patient Question (O2 monitor results) Start: 11-20-2024 ambulatory Alayna Salazar Facility:[facility] Start: 11-20-2024 Non-patient / Non-visit Dr. Alayna garcia MD -[facility] Work Phone: Start: 11-20-2024 End: 11-20-2024 Patient encounter procedure Lorna Dasilva PA -Pulmonary Services/Neurology Work Phone: Start: 11-20-2024 End: 11-20-2024 ambulatory Lorna Dasilva Facility:[facility] Start: 11-16-2024 End: 11-16-2024 Telephone encounter Magali Nieves MD Work Phone: Pulmonary Medicine Comment on above: Results Start: 11-14-2024 End: 11-14-2024 Office outpatient visit 15 minutes Jean-Pierre Vitale APRN.CNP Work Phone: Pulmonary Medicine Comment on above: COPD, severe (HCC) ( Primary Dx); Ground glass opacity present on imaging of lung; Chronic hypoxemic respiratory failure (HCC) Start: 11-14-2024 End: 11-14-2024 ambulatory JULIO DRAPER Facility:[facility] Start: 11-14-2024 End: 11-19-2024 Telephone encounter Julio Draper MD Work Phone: [facility] [place] Comment on above: Patient Update Start: 11-13-2024 End: 11-13-2024 Office outpatient visit 15 minutes Julio Draper MD Work Phone: [facility] [place] Comment on above: Primary hypertension (Primary Dx); Chronic obstructive pulmonary disease with acute exacerbation (HCC); Coronary artery disease involving [place] coronary artery of [place] heart without angina pectoris; Paroxysmal atrial fibrillation (HCC) Start: 11-13-2024 End: 11-13-2024 ambulatory JULIO DRAPER Facility:[facility] Start: 11-06-2024 ambulatory JULIO DRAPER Faci lity:[facility] Start: 11-06-2024 End: 11-06-2024 Subsequent hospital visit by physician Ct [facility] (I-Stat) Work Phone: Cat Scan Comment on above: Ground glass opacity present on imaging of lung [R91.8] Start: 11-01-2024 End: 11-01-2024 Patient encounter procedure Lorna Dasilva [place] -[facility] Work Phone: Start: 11-01-2024 End: 11-01-2024 Lorna Dasilva [place] -[facility] Work Phone: Start: 11-01-2024 End: 11-01-2024 Refill Magali Nieves MD Work Phone: Pulmonary Medicine Comment on above: Refill Request Start: 10-31-2024 End: 10-31-2024 [facility] Start: 10-31-2024 End: 10-31-2024 Emergency department patient visit Dr. Dariel Aguilar -Emergency Department Work Phone: Start: 10-11-2024 End: 10-11-2024 Follow-up encounter Julio Draper MD Work Phone: [facility] Start: 10-09-2024 ambulatory Kelsea Montague [place] [facility] Start: 10-08-2024 End: 10-08-2024 Subsequent hospital visit by physician Xr [facility] Work Phone: Radiology Comment on above: Pneumonia of right l ower lobe due to infectious organism [J18.9] Start: 10-08-2024 End: 10-08-2024 ambulatory JULIO DRAPER Facility:[facility] Start: 10-08-2024 End: 10-08-2024 Office outpatient visit 25 minutes Julio Draper MD Work Phone: [facility] [place] Comment on above: Chronic obstructive pulmonary disease with acute exacerbation (HCC) (Primary Dx); History of pneumonia Start: 10-08-2024 End: 10-08-2024 Telephone encounter Julio Draper MD Work Phone: [facility] Comment on above: Breathing difficulti es Start: 09-26-2024 End: 09-26-2024 Telephone encounter Julio Draper MD Work Phone: [facility] [place] Comment on above: Home Health Nursing Update Start: 09-24-2024 End: 09-24-2024 Telephone encounter Julio Draper MD Work Phone: [facility] [place] Comment on above: Referral Update Start: 09-20-2024 End: 09-25-2024 Telephone encounter Julio Draper MD Work Phone: [facility] Comment on above: Forms (Disability fo tisha from [employer]) Start: 09-20-2024 End: 09-20-2024 ambulatory JULIO DRAPER Facility:[facility] Start: 09-20-2024 End: 09-20-2024 Patient encounter procedure Chreyl [facility] Work Phone: Start: 09-20-2024 End: 09-20-2024 Cheryl [facility] Work Phone: Start: 09-20-2024 End: 09-20-2024 ambulatory Cheryl Littlejohn Facility:[facility] Start: 09-19-2024 End: 09-19-2024 Office outpatient visit 25 minutes Julio Draper MD Work Phone: [facility] [place] Comment on above: Acute pain of right shoulder (Primary Dx); Chronic obstructive pulmonary disease with acute exacerbation (HCC) Start: 09-19-2024 End: 09-19-2024 ambulatory JULIO DRAPER Facility:[facility] Start: 09-17-2024 End: 09-17-2024 Dr. Julio Draper MD Work Phone: -Emergency Department Work Phone: Start: 09-17-2024 End: 09-17-2024 Emergency department patient visit Dr. Julio Draper MD Work Phone: [facility] Work Phone: Start: 09-17-2024 End: 09-17-2024 ambulatory Julio Draper MD Work Phone: [facility] [place] Comment on above: right shoulder pain Start: 09-07-2024 End: 11-07-2024 Follow-up encounter Julio Draper MD Work Phone: [facility] [place] Start: 09-07-2024 End: 09-07-2024 Telephone encounter Julio Draper MD Work Phone: [facility] [place] Comment on above: Orders FYI-No Action Needed (home health recert) Start: 09-06-[address] [facility] Start: 09-06-2024 Non-patient / Non-visit Dr. Livan cantu MD -[facility] Start: 09-06-2024 Dr. Livan Love MD -[facility] Start: 09-06-2024 End: 09-06-2024 Admission to same day surgery center Dr. Livan Love MD -Clinical Laboratory Assistant/Special Procedures Work Phone: Start: 09-06-2024 End: 09-06-2024 Dr. Livan Love MD -Clinical Laboratory Assistant/Special Procedures Work Phone: Start: 09-06-2024 End: 09-06-2024 ambulatory [facility] Facility:[facility] Start: 09-04-2024 End: 09-04-2024 Office outpatient visit 15 minutes Jean-Pierre Vitale APRN.CNP Work Phone: Pulmonary Medicine Comment on above: COPD, severe (HCC) ( Primary Dx); Chronic hypoxemic respiratory failure (HCC); Ground glass opacity present on imaging of lung Start: 09-04-2024 End: 09-04-2024 ambulatory JEAN-PIERRE VITALE Facility:[facility] Start: 08-30-2024 End: 08-30-2024 ambulatory JULIO DRAPER Facility:[facility] Start: 08-30-2024 End: 08-30-2024 Subsequent hospital visit by physician Bone Density [facility] Work Phone: Radiology Comment on above: Age-related osteopor osis without current pathological fracture [M81.0] Start: 08-14-2024 End: 08-14-2024 Telephone encounter Julio Draper MD Work Phone: [facility] [place] Comment on above: Orders Start: 08-14-2024 End: 09-14-2024 ambulatory Julio Draper MD Work Phone: [facility] [place] Start: 08-14-2024 End: 08-14-2024 Office outpatient visit [...] Nursing- Plan Update Start: 08-10-2024 Dr. Robel Gomez [facility] Work Phone: Start: 08-09-2024 Dr. Robel Gomez [facility] Work Phone: Start: 08-08-2024 [facility] Work Phone: Start: 08-07-2024 Dr. Yemi Celaya [facility] Work Phone: Start: 08-06-2024 ambulatory Yemi Celaya [place] [facility] Start: 08-06-2024 End: 08-10-2024 Evaluation and management of inpatient [facility] Facility:[facility] Start: 08-06-2024 End: 08-10-2024 Dr. Robel Funk DO -Progressive Care Unit Work Phone: Start: 08-03-2024 End: 08-03-2024 Refill Julio Draper MD Work Phone: [facility] [place] Comment on above: Refill Request Start: 08-02-2024 End: 08-03-2024 Dr. Dariel Combs DO -Emergency Departmen t Work Phone: Start: 08-02-2024 End: 08-03-2024 [facility] Start: 08-01-2024 End: 08-02-2024 Telephone encounter Julio Draper MD Work Phone: [facility] [place] Comment on above: Patient Update Start: 07-31-2024 End: 07-31-2024 ambulatory KEHINDE DRAPER Facility:[facility] Start: 07-31-2024 End: 07-31-2024 Patient encounter procedure Julio Draper MD Work Phone: [facility] [place] Comment on above: Sepsis, due to unspe [...] Phone: [facility] [place] Comment on above: [facility]; [facility], nurs ing plan of care Start: 07-27-2024 Dr. Gabby gomes MD -[facility] Work Phone: Start: 07-26-2024 Dr. Gabby gomes MD -[facility] Work Phone: Start: 07-25-2024 Dr. Gabby gomes MD -[place] [facility] Work Phone: Start: 07-24-2024 Dr. Gabby gomes MD -[place] [facility] Work Phone: Start: 07-23-2024 ambulatory Adelia Lawson Facil ity:[facility] Start: 07-23-2024 End: 07-27-2024 Evaluation and management of inpatient Adelia Lawson Facility:[facility] Start: 07-23-2024 End: 07-27-2024 Dr. Gabby Sutherland MD -Progressive Care Unit Work Phone: Start: 07-18-2024 End: 07-18-2024 ambulatory JULIO DRAPER Facility:[facility] Start: 07-18-2024 End: 07-18-2024 Office outpatient visit 15 minutes Julio Draper MD Work Phone: [facility] [place] Comment on above: Chronic obstructive pulmonary disease with acute exacerbation (HCC) (Primary Dx); Pneumonia due to infectious organism, unspecified laterality, unspecified part of lung; Chronic respiratory failure with hypoxia (HCC); Lung nodule; ESRD (end stage renal disease) (HCC) Start: 07-12-2024 End: 07-13-2024 Telephone encounter Julio Draper MD Work Phone: [facility] [place] Comment on above: Home Care Management (Nursing plan of care) Start: 07-11-2024 Dr. Diana Santillan MD -[facility] Work Phone: Start: 07-10-2024 Dr. Diana Santillan MD -[facility] Work Phone: Start: 07-10-2024 Encounter for other preprocedural examination Livan Love [facility] Start: 07-09-2024 End: 07-09-2024 Telephone encounter Julio Draper MD Work Phone: [facility] [place] Comment on above: Home Health Orders Start: 07-09-2024 Dr. Mihai Izaguirre MD -[place] [facility] Work Phone: Start: 07-08-2024 ambulatory January Chris [facility] Start: 07-08-2024 End: 07-11-2024 Evaluation and management of inpatient Julio Draper Facility:[facility] Start: 07-08-2024 End: 07-11-2024 Dr. Diana Santillan MD -[facility] Work Phone: Start: 07-05-2024 End: 07-05-2024 ambulatory JULIO DRAPER Facility:[facility] Start: 07-05-2024 End: 07-05-2024 Office outpatient visit 15 minutes Julio Draper MD Work Phone: [facility] [place] Comment on above: Chronic obstructive pulmonary disease with acute exacerbation (HCC) (Primary Dx); Chronic respiratory failure with hypoxia (HCC); Primary hypertension; Paroxysmal atrial fibrillation (HCC) Start: 07-03-2024 End: 07-03-2024 ambulatory Julio Draper MD Work Phone: [facility] [place] Comment on above: Breathing Problem Start: 07-03-2024 End: 07-03-2024 Dr. Livan Murry DO -Emergency Departme nt Work Phone: Start: 07-03-2024 End: 07-03-2024 Emergency department patient visit Julio Draper Facility:[facility] Start: 06-19-2024 End: 06-19-2024 Cheryl [facility]IL[facility] -[facility] Work Phone: Start: 06-19-2024 End: 06-19-2024 ambulatory Cheryl Littlejohn Facility:[facility] Start: 06-15-2024 End: 06-15-2024 Refill Julio Draper MD Work Phone: [facility] [place] Comment on above: Refill Request Start: 06-07-2024 End: 06-07-2024 ambulatory JULIO DRAPER Facility:[facility] Start: 06-07-2024 End: 06-07-2024 Patient encounter procedure Magali Nieves MD Work Phone: Pulmonary Medicine Comment on above: Ground glass opacity present on imaging of lung (Primary Dx); COPD, severe (HCC); Chronic hypoxemic respiratory failure (HCC); Former smoker; ESRD needing dialysis (HCC) Start: 06-05-2024 ambulatory Livan Love Facility[facility] Start: 06-05-2024 Dr. Livan Love MD -[facility] Start: 06-05-2024 End: 06-05-2024 Dr. Livan Love MD -Surgical Day Care Start: 06-05-2024 End: 06-05-2024 ambulatory [facility] Facility:[facility] Start: 05-24-2024 End: 05-24-2024 Dr. Livan Love MD -[facility] Work Phone: Start: 05-24-2024 End: 05-24-2024 ambulatory [facility] Facility:[facility] Start: 05-15-2024 End: 05-15-2024 ambulatory JULIO DRAPER Facility:[facility] Start: 05-15-2024 End: 05-15-2024 Office outpatient visit 25 minutes Julio Drpaer MD Work Phone: [facility] [place] Comment on above: Muscle spasm (Primar y Dx); Primary hypertension; ESRD (end stage renal disease) (HCC); Chronic obstructive pulmonary disease with acute exacerbation (HCC); Age-related osteoporosis without current pathological fracture Start: 05-10-2024 End: 05-10-2024 ambulatory JULIO DRAPER Facility:[facility] Start: 05-10-2024 End: 05-10-2024 Subsequent hospital visit by physician [facility] (I-Stat) Work Phone: Cat Scan Comment on above: Lung nodules [R91.8] Start: 04-16-2024 End: 04-16-2024 Telephone encounter Magali Nieves MD Work Phone: Pulmonary Medicine Comment on above: Patient Update; Tereza thing Problem concern with crackli ng lungs/SOB Start: 04-12-2024 End: 04-12-2024 Office outpatient visit 25 minutes Julio Draper MD Work Phone: [facility] [place] Comment on above: Muscle spasm (Primar y Dx); ESRD (end stage renal disease) (HCC); Primary hypertension; Coronary artery disease involving [place] coronary artery of [place] heart without angina pectoris; Chronic obstructive pulmonary disease with acute exacerbation (HCC) Start: 03-20-2024 End: 03-20-2024 Telephone encounter Julio Draper MD Work Phone: [facility] [place] Comment on above: Forms Start: 03-17-2024 End: 03-22-2024 Refill Julio Draper MD Work Phone: [facility] Comment on above: Refill Request Start: 03-06-2024 End: 03-06-2024 Telephone encounter Julio Draper MD Work Phone: [facility] [place] Comment on above: disability forms fro m [employer] Start: 02-22-2024 End: 02-22-2024 Telephone encounter Julio Draper MD Work Phone: [facility] [place] Start: 02-20-2024 End: 02-20-2024 Subsequent hospital visit by physician Dylon Laird MD Work Phone: Gastroenterology Comment on above: 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, 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] Start: 02-17-2024 Telephone encounter Luna Swartz PA-C Work Phone: Pulmonary Medicine Comment on above: Medication Problem Start: 02-13-2024 Telephone encounter [facility] Comment on above: Appointment Start: 02-09-2024 End: 02-09-2024 ambulatory Ryan Mchugh MD Work Phone: Gastroenterology Comment on above: 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, acquired (Primary Dx) Dialysis work around Start: 02-09-2024 Telephone encounter Julio russo MD Work Phone: [facility] [place] Comment on above: Patient Update Start: 02-09-2024 End: 02-09-2024 Telemedicine consultation with patient Ryan Mchugh MD Work Phone: Gastroenterology Start: 01-13-2024 Telephone encounter Julio russo MD Work Phone: [facility] [place] Comment on above: Release Point form Start: 01-11-2024 Telephone encounter Julio russo MD Work Phone: [facility] [place] Comment on above: Forms Start: 12-16-2023 Refill Julio doss MD Work Phone: [facility] [place] Comment on above: Refill Request Start: 11-14-2023 [...] defect, unspecified (HCC); Coronary artery disease involving [place] coronary artery of [place] heart without angina pectoris; Essential tremor; Anemia requiring transfusions; Pleural effusion Start: 11-11-2023 End: 11-11-2023 Patient encounter status Julio Draper MD Work Phone: [facility] Work Phone: Start: 11-08-2023 End: 11-08-2023 Patient encounter procedure Luna Swartz PA-C Work Phone: Pulmonary Medicine Comment on above: Centrilobular emphys jalyn (HCC) (Primary Dx); Lung nodules; Chronic hypoxemic respiratory failure (HCC); Parapneumonic effusion; Former smoker; Hemodialysis status (HCC) Start: 11-03-2023 End: 11-03-2023 Subsequent hospital visit by physician Ct [facility] (I-Stat) Work Phone: Cat Scan Comment on above: Lung nodules [R91.8] Start: 10-31-2023 End: 10-31-2023 Subsequent hospital visit by physician Xr [facility] [place] Work Phone: Radiology Comment on above: Chronic [...] Julio doss MD Work Phone: Internal Medicine [place] Comment on above: Cough Start: 10-25-2023 Telephone encounter Julio russo MD Work Phone: [facility] [place] Comment on above: Forms Start: 10-10-2023 ambulatory Julio doss MD Work Phone: Ambulatory Surgery Comment on above: colorectal cancer sc reening Start: 09-23-2023 Refill Julio doss MD Work Phone: [facility] [place] Comment on above: Refill Request Start: 09-19-2023 Refill Julio doss MD Work Phone: Internal Medicine [place] Comment on above: Refill Request Start: 09-13-2023 Telephone encounter Julio russo MD Work Phone: Internal Medicine [place] Comment on above: Patient Update; Medi cation Problem; Home health orders Start: 09-07-2023 ambulatory Julio doss MD Work Phone: [facility] [place] Start: 09-06-2023 Telephone encounter Julio russo MD Work Phone: Internal Medicine [place] Comment on above: Patient Update Start: 09-03-2023 Telephone encounter Aliya Dahl MD Work Phone: [facility] Start: 09-01-2023 End: 09-01-[address] Julio Draper Work Phone: [facility] Work Phone: Start: 09-01-2023 End: 09-01-2023 Dr. Julio Draper Work Phone: [facility]Medical Out Work Phone: Start: 08-31-2023 Telephone encounter Julio russo MD Work Phone: Internal Medicine [place] Start: 08-29-2023 Telephone encounter Julio russo MD Work Phone: [facility] [place] Comment on above: Results Start: 08-25-2023 End: 08-25-2023 Patient encounter procedure Julio Draper MD Work Phone: [facility] Medicine [place] Comment on above: Pneumonia due to inf ectious organism, unspecified laterality, unspecified part of lung (Primary Dx); ESRD (end stage renal disease) ([facility]); Malnutrition of mild degree (HCC); Paroxysmal atrial [...] Phone: Internal Medicine [place] Comment on above: OT plan of care Start: 08-22-2023 ambulatory Genna Elizabeth [facility] Work Phone: [facility] Start: 08-22-2023 Telephone encounter Julio russo MD Work Phone: Internal Medicine [place] Comment on above: physical therapy sol n of care Patient Update; [facility] HH update / verbal order request Transition Of Care ( TCM Pharmacy-Hospital discharge 08/19/23/) Start: 08-17-2023 End: 08-19-2023 Evaluation and management of inpatient JULIO DRAPER Facility:[facility] Start: 08-16-2023 End: 08-16-2023 Patient encounter procedure [...] 08-12-2023 ambulatory Rafael doyle MD Work Phone: [facility] Comment on above: Paroxysmal atrial fi brillation (HCC) (Primary Dx) Start: 08-10-2023 Telephone encounter Magali Nieves MD Work Phone: Pulmonary Medicine Comment on above: Orders; Patient Upda te Start: 08-09-2023 Telephone encounter Ambrose menon MD Work Phone: [facility] Cardiology [place] Comment on above: Appointment (Hospita l f/u appt/) Start: 08-08-2023 Telephone encounter Julio russo MD Work Phone: Internal Medicine [place] Comment on above: Forms Start: 08-05-2023 Telephone encounter Harry lopez APRN.CNP Work Phone: [facility] Cardiology [place] Comment on above: Appointment Start: 07-09-2023 Dr. Julio Finnegan Work Phone: [facility] Work Phone: Start: 07-09-2023 End: 07-09-2023 Dr. Julio Draper Work Phone: [facility] Work Phone: Start: 07-08-2023 End: 07-08-2023 Dr. Julio Draper Work Phone: [facility] Work Phone: Start: 07-08-2023 Dr. Julio Finnegan Work Phone: [facility]PMW Start: 07-08-2023 Dr. Julio Finnegan Work Phone: [facility] Work Phone: Start: 07-07-2023 End: 07-09-2023 Evaluation and management of inpatient Dr. Julio Draper Work Phone: [facility] Work Phone: Start: 07-07-2023 End: 07-09-2023 Dr. Julio Draper Work Phone: [facility]-Progressive Care Unit Work Phone: Start: 07-07-2023 Dr. Julio Finnegan Work Phone: [facility]-RAD Start: 07-05-2023 End: 07-05-2023 Emergency department patient visit Dr. Julio Draper Work Phone: [facility]-Emergency Department Work Phone: Start: 07-05-2023 End: 07-05-2023 Dr. Julio Draper Work Phone: [facility]-Emergency Department Work Phone: Start: 06-30-2023 End: 06-30-2023 Subsequent hospital visit by physician Xr [facility] Work Phone: Radiology Comment on above: Multiple duodenal ul cers [K26.9] Start: 06-23-2023 Non-patient / Non-visit Dr. Christine Draper Work Phone: [facility] Start: 06-23-2023 Dr. Julio Finnegan Work Phone: [facility] Start: 06-23-2023 Non-patient / Non-visit Dr. Christine Draper Work Phone: [facility] Work Phone: Start: 06-23-2023 Dr. Julio Finnegan Work Phone: [facility] Work Phone: Start: 06-22-2023 Non-patient / Non-visit Dr. Christine Draper Work Phone: [facility] Start: 06-22-2023 Dr. Julio Finnegan Work Phone: [facility] Start: 06-21-2023 Non-patient / Non-visit Dr. Christine Draper Work Phone: [facility] Start: 06-21-2023 Dr. Julio Finnegan Work Phone: [facility] Start: 06-21-2023 Non-patient / Non-visit Dr. Christine Draper Work Phone: [facility] Work Phone: Start: 06-21-2023 Dr. Julio Finnegan Work Phone: [facility] Work Phone: Start: 06-20-2023 Non-patient / Non-visit Dr. Christine Draper Work Phone: [facility] Start: 06-20-2023 End: 06-23-2023 Evaluation and management of inpatient Dr. Julio Draper Work Phone: [facility]-Intensive Care Unit Work Phone: Start: 06-20-2023 End: 06-23-2023 Dr. Julio Draper Work Phone: [facility]-Medical Surgical 3 Work Phone: Start: 06-17-2023 Telephone encounter Julio russo MD Work Phone: [facility] [place] Comment on above: Long-Term Plan of Care Start: 06-16-2023 Telephone encounter Julio russo MD Work Phone: [facility] [place] Comment on above: [facility] agree to foll ow Start: 06-16-2023 Non-patient / Non-visit Dr. Christine Draper Work Phone: [facility] Work Phone: Start: 06-16-2023 Dr. Julio Finnegan Work Phone: [facility] Work Phone: Start: 06-16-2023 ambulatory NONE PHYSICIAN Facility :R Start: 06-15-2023 Non-patient / Non-visit Dr. Christine Draper Work Phone: [facility] Work Phone: Start: 06-15-2023 Dr. Jul[facility] Work [facility]: Start: 06-14-2023 Non-patient / Non-visit Dr. Christine Draper Work Phone: [facility] Work Phone: Start: 06-14-2023 Dr. Jul[facility]gan [facility] Work Phone: Start: 06-13-2023 Non-patient / Non-visit Dr. Christine Draper Work Phone: [facility] [facility] Work Phone: Start: 06-13-2023 Dr. Julio Finnegan [facility] Work Phone: Start: 06-13-2023 Non-patient / Non-visit Dr. Christine Draper Work Phone: [facility] Start: 06-13-2023 Dr. Julio Finnegan Work Phone: [facility] Start: 06-12-2023 Non-patient / Non-visit Dr. Christine Draper Work Phone: [facility] Work Phone: Start: 06-12-2023 Dr. Julio Finnegan Work Phone: [facility] Work Phone: Start: 06-12-2023 Non-patient / Non-visit Dr. Christine Draper Work Phone: [facility] Start: 06-12-2023 Dr. Julio Finnegan Work Phone: [facility] Start: 06-11-2023 Non-patient / Non-visit Dr. Christine Draper Work Phone: [facility] Work Phone: Start: 06-11-2023 Dr. Julio Finnegan Work Phone: [facility] Work Phone: Start: 06-11-2023 Non-patient / Non-visit Dr. Christine Draper Work Phone: [facility] Start: 06-11-2023 Dr. Julio Finnegan Work Phone: [facility] Start: 06-10-2023 Non-patient / Non-visit Dr. Christine Draper Work Phone: [facility] Start: 06-10-2023 Dr. Julio Finnegan Work Phone: [facility] Start: 06-10-2023 Non-patient / Non-visit Dr. Christine Draper Work Phone: [facility] [facility] Work Phone: Start: 06-10-2023 Dr. Julio Finnegan Work Phone: [facility] Work Phone: Start: 06-10-2023 Non-patient / Non-visit Dr. Christine Draper Work Phone: [facility] Start: 06-10-2023 Dr. Julio Finnegan Work Phone: [facility] Start: 06-09-2023 Non-patient / Non-visit Dr. Christine Draper Work Phone: [facility] Work Phone: Start: 06-09-2023 Dr. Julio Finnegan Work Phone: [facility] Work Phone: Start: 06-09-2023 Non-patient / Non-visit Dr. Christine Draper Work Phone: [facility] Start: 06-09-2023 Dr. Julio Finnegan Work Phone: [facility] Start: 06-09-2023 Non-patient / Non-visit Dr. Christine Draper Work Phone: [facility] Start: 06-09-2023 Dr. Julio Finneagn Work Phone: [facility] Start: 06-09-2023 End: 06-09-2023 Non-patient / Non-visit Dr. Julio Draper Work Phone: [facility] [facility] Work Phone: Start: 06-09-2023 End: 06-09-2023 Dr. Julio Draper Work Phone: [facility] Work Phone: Start: 06-08-2023 Non-patient / Non-visit Dr. Christine Draper Work Phone: [facility] Start: 06-08-2023 Dr. Julio Finnegan Work Phone: [facility] Start: 06-08-2023 Non-patient / Non-visit Dr. Christine Draper Work Phone: [facility] Start: 06-08-2023 Dr. Julio Finnegan Work Phone: [facility] Start: 06-07-2023 Non-patient / Non-visit Dr. Christine Draper Work Phone: [facility] [facility] Work Phone: Start: 06-07-2023 Dr. Julio Finnegan Work Phone: [facility] Work Phone: Start: 06-06-2023 Non-patient / Non-visit Dr. Christine Draper Work Phone: [facility] Work Phone: Start: 06-06-2023 Dr. Julio Finnegan Work Phone: [facility] Work Phone: Start: 06-05-2023 Non-patient / Non-visit Dr. Christine Draper Work Phone: [facility] [facility] Work Phone: Start: 06-05-2023 Dr. Julio Finnegan Work Phone: [facility] [facility] Work Phone: Start: 06-05-2023 Non-patient / Non-visit Dr. Christine Draper Work Phone: [facility] Start: 06-05-2023 Dr. Julio Finnegan Work Phone: [facility] Start: 06-04-2023 Non-patient / Non-visit Dr. Christine Draper Work Phone: [facility] Work Phone: Start: 06-04-2023 Dr. Julio Finnegan Work Phone: [facility] Work Phone: Start: 06-04-2023 Non-patient / Non-visit Dr. Christine Draper Work Phone: [facility] Start: 06-04-2023 Dr. Julio Finnegan Work Phone: [facility] Start: 06-03-2023 End: 06-03-2023 Non-patient / Non-visit Dr. Julio Draper Work Phone: [facility] [facility] Work Phone: Start: 06-03-2023 End: 06-03-2023 Dr. Julio Draper Work Phone: [facility] [facility] Work Phone: Start: 06-03-2023 Non-patient / Non-visit Dr. Christine Draper Work Phone: [facility] [facility] Work Phone: Start: 06-03-2023 Dr. Julio Finnegan Work Phone: [facility] Work Phone: Start: 06-03-2023 Non-patient / Non-visit Dr. Christine Draper Work Phone: [facility] Start: 06-03-2023 Dr. Julio Finnegan Work Phone: [facility] Start: 06-02-2023 Non-patient / Non-visit Dr. Christine Draper Work Phone: [facility] Start: 06-02-2023 Dr. Julio Finnegan Work Phone: [facility] Start: 06-02-2023 End: 06-16-2023 [facility] Start: 06-02-2023 Non-patient / Non-visit Dr. Christine Draper Work Phone: [facility] Work Phone: Start: 06-02-2023 End: 06-16-2023 Dr. Julio Dra[facility] Work [facility]: Start: 06-01-2023 End: 06-01-2023 Emergency department patient visit [facility]Emergency Department Work Phone: Start: 06-01-2023 End: 06-01-2023 Dr. Julio Draper Work Phone: [facility]Emergency Department Work Phone: Start: 05-30-2023 Telephone encounter Luna Swartz PA-C Work Phone: Pulmonary Medicine Comment on above: Results (CT scan res ults/ Pain) Start: 05-25-2023 End: 05-25-2023 Subsequent hospital visit by physician [facility] (I-Stat) Work Phone: Cat Scan Comment on above: Lung nodules [R91.8] Start: 04-27-2023 Telephone encounter Luna Swartz PA-C Work Phone: Pulmonary Medicine Comment on above: Pin Game Machine Inspector - O ther Start: 03-03-2023 End: 03-03-2023 [...] Julio doss MD Work Phone: Internal Medicine [place] Comment on above: Refill Request Start: 01-07-2023 End: 01-07-2023 Patient encounter procedure Julio Draper MD Work Phone: [facility] Medicine [place] Comment on above: Chronic respiratory failure with hypoxia (HCC) (Primary Dx); COPD with asthma (HCC); Environmental allergies Start: 01-07-2023 End: 01-07-2023 Subsequent hospital visit by physician Xr [facility] [place] Work Phone: Radiology Comment on above: Pneumonia of left lo wer lobe due to infectious organism [J18.9] Start: 12-10-2022 End: 12-10-2022 Patient encounter procedure Magali Nieves MD Work Phone: Pulmonary Medicine Comment on above: Pneumonia of left lo wer lobe due to infectious organism (Primary Dx); COPD, severe (HCC); Chronic hypoxemic respiratory failure (HCC) Start: 12-06-2022 Patient Outreach Julio ornelas MD Work Phone: Internal Medicine [place] Comment on above: Transition Of Care Patient Update Start: 12-02-2022 Non-patient / Non-visit Dr. Christine Draper Work Phone: [facility] In[facility] Physicians Start: 12-01-2022 Non-patient / Non-visit Dr. Christine Draper Work Phone: [facility] Start: 11-30-2022 End: 12-03-2022 Evaluation and management of inpatient [facility] 3 Start: 11-29-2022 ambulatory Genna Malone RN NURS E GRIEVANCE AND APPEALS COORDINATOR Comment on above: Fever; Nausea; Chest Pain; Dizziness Start: 11-28-2022 End: 11-28-2022 [facility] Start: 11-15-2022 End: 11-15-2022 Patient encounter procedure Tasha Hurley APRN.CNP Work Phone: Internal Medicine [place] Comment on above: COPD with exacerbati on (HCC) (Primary Dx) Start: 11-11-2022 End: 11-11-2022 Subsequent hospital visit by physician Xr [facility] Work Phone: Radiology Comment on above: COPD with exacerbati on (HCC) [J44.1] Start: 11-11-2022 End: 11-11-2022 Patient encounter procedure Jessie Hurley APRN.CNP Work Phone: [facility] Comment on above: COPD with exacerbati on (HCC) (Primary Dx); Abnormal breath sounds Start: 11-05-2022 End: 11-05-2022 Patient encounter procedure Julio Draper MD Work Phone: Internal Medicine [place] Comment on above: Routine medical exam (Primary Dx); Chronic respiratory failure with hypoxia (HCC); COPD with asthma (HCC); Hyperlipidemia, unspecified hyperlipidemia type; Screening for cervical cancer; Screening for colon cancer; Need for vaccination Start: 11-05-2022 End: 11-05-2022 Patient encounter status Julio Draper MD Work Phone: Internal Medicine [place] Start: 10-23-2022 Refill Julio doss MD Work Phone: Internal Medicine [place] Comment on above: Refill Request Start: 10-06-2022 ambulatory Julio doss MD Work Phone: [facility] [place] Start: 09-10-2022 Refill Julio doss MD Work Phone: [facility] [place] Comment on above: Refill Request Start: 07-31-2022 Refill Julio doss MD Work Phone: [facility] Medicine [place] Comment on above: Refill Request Start: 05-31-2022 [...] 05-25-2022 Subsequent hospital visit by physician [facility] (I-Stat) Work Phone: Cat Scan Comment on above: COVID-19 [U07.1] Start: 05-03-2022 End: 05-03-2022 Patient encounter procedure Julio Draper MD Work Phone: [facility] Medicine [place] Comment on above: COPD with asthma (HC C) (Primary Dx); Need for influenza vaccination; Hypoxemia; Hyperlipidemia, unspecified hyperlipidemia type; Deformity of toenail; Environmental allergies; Lung nodule seen on imaging study; Elevated blood pressure reading Start: 04-22-2022 Telephone encounter Luna Swartz (Historical) Work Phone: Pulmonary Medicine Comment on above: Pin Game Machine Inspector - O ther Start: 04-21-2022 Telephone encounter Magali Nieves MD Work Phone: Orthopaedics Comment on above: Orders Start: 04-20-2022 Refill Julio doss MD Work Phone: Internal Medicine [place] Comment on above: Refill Request Start: 01-27-2022 Telephone encounter Luna Garnica (Historic) Fan Work Phone: Pulmonary Medicine Comment on above: Orders Start: 01-21-2022 End: 01-21-2022 ambulatory Respiratory Therapist [facility] Work Phone: Pulmonary Medicine Comment on above: Spirometry Start: 01-21-2022 End: 01-21-2022 Patient encounter procedure Respiratory Therapist [facility] Work Phone: [facility] Comment on above: Stage 3 severe COPD by GOLD classification ([facility]) (Primary Dx); Former smoker; COVID-19; Lung nodules Start: 01-08-2022 Telephone encounter Luna Swartz PA-C Work Phone: Pulmonary Medicine Comment on above: Patient Update Start: 11-12-2021 End: 11-12-2021 Patient encounter procedure Asia Jiménez APRN.NEGOTIATIONS DIRECTOR Work Phone: Internal Medicine [place] Comment on above: Acute right-sided lo w back pain without sciatica (Primary Dx); Vertigo; Post-nasal drip; Environmental allergies; COPD with asthma ([facility]) Start: 11-02-2021 End: 11-02-2021 Subsequent hospital visit by physician Caroline [facility] [place] Work Phone: Radiology Comment on above: Cough [R05.9] Start: 11-02-2021 End: 11-02-2021 Patient encounter procedure Rachel Mayo APRN.HEAD SAWYER Work Phone: [place] [facility] Comment on above: Cough (Primary Dx); SOB (shortness of breath) Start: 10-14-2021 End: 10-14-2021 Patient encounter procedure Ev Hinkle APRN.HEAD SAWYER Work Phone: [facility] Comment on above: Bilateral impacted c erumen (Primary Dx) Start: 04-21-2021 End: 04-21-2021 Subsequent hospital visit by physician Caroline [facility] [place] Work Phone: Radiology Comment on above: Cough [R05.9] Start: 10-06-2020 End: 10-06-2020 Patient encounter procedure [facility] Start: 09-08-2020 End: 09-08-2020 Patient encounter procedure [facility] Procedures Date Procedure Procedure Detail Performing Clinician Start: 04-21-2025 Plain chest X-ray Dr. Julio Draper MD Work Phone: Start: 04-21-2025 SARS-CoV-2, Influenza & RSV (PCR) Dr. Christine Draper MD Work Phone: Start: 04-13-2025 Plain chest X-ray Dr. Julio Draper MD Work Phone: Start: 04-13-[address] Phil Draper MD Work Phone: Start: 04-13-2025 Serum inorganic phosphate measurement Dr. Julio Draper MD Work Phone: Start: 02-14-2025 Adult depression screening assessment Julio Draper MD Work Phone: Start: 02-09-2025 Urnls dip stick/tablet reagent auto microscopy Dr. Julio Draper MD Work Phone: Start: 02-09-2025 Plain X-ray of shoulder Dr. Julio Draper MD Work Phone: Start: 02-09-2025 X-ray of chest, PA and lateral views Dr. Julio Draper MD Work Phone: Start: 02-09-[address] Phil Draper MD Work Phone: Start: 02-09-2025 CT of abdomen and pelvis without contrast Dr. Julio Draper MD Work Phone: Start: 10-31-2024 Plain chest X-ray Dr. Julio [...] Work Phone: Start: 07-09-2024 Albumin/Globulin ratio Dr. Juilo Draper MD Work Phone: Start: 07-09-2024 Blood [...] Start: 06-05-2024 Plain x-ray of humerus Dr. Julio Draper MD Work Phone: Start: 02-20-2024 Endoscopy upper small intestine Ryan hernandez MD Work Phone: Start: 02-20-2024 Gases blood ph direct rena xcpt pulse oximitry Domingo Malave MD Work Phone: Start: 12-22-[address] (I-Stat) Work Phone: Start: 11-11-2023 Adult depression screening assessment Julio Draper MD Work Phone: Start: 10-31-2023 Radiologic exam chest 2 views Julio russo MD Work Phone: Start: 08-25-2023 Lipid 1996 panel - Serum or Plasma Phil Draper MD Work Phone: Start: 07-20-2023 Lipid 1996 panel - Serum or Plasma Puma Plasencia [...] Radiologic exam chest 2 views Jessie Hurley APRN.HEAD SAWYER Work Phone: Start: 12-03-2022 [id number] total Magali Nieves MD Work Phone: Start: 05-25-2022 Ct thorax w/o contrast material Luna Swartz PA-C Work Phone: Start: 05-03-2022 PFIZER-[employer] COVID-19 BIVALENT BOOSTER VACCINE, AGE 12+ YR Julio Draper MD Work Phone: Start: 05-03-2022 INFLUENZA SEASONAL QUADRIVALENT HIGH DOSE AGE 65+ Julio Draper MD Work Phone: Start: 01-21-2022 Noninvasive ear/pulse oximetry multiple deter Luna Swartz PA-C Work Phone: Start: 11-02-2021 Radiologic exam chest 2 views Rachel Dyson RESORT MANAGER.[employer] Work Phone: Start: 08-26-2021 Mammography Ev Hinkle RESORT MANAGER.[employer] Work Phone: Start: 05-06-2021 Adult depression screening assessment Ev Hinkle RESORT MANAGER.[employer] Work Phone: Start: 04-21-2021 Radiologic exam chest 2 views Pamela Cristofer lal RESORT MANAGER.[employer] Work Phone: Start: 08-18-2012 Colonoscopy Ev Hinkle RESORT MANAGER.[employer] Work Phone: Legionella pneumophi la antigen assay Dr. Julio Draper Work Phone: Streptococcus pneumoniae Antigen (M Dr. Julio Draper Work Phone: Viral antigen assay Dr. Tenisha Draper Work Phone: Plan of Treatment Date Care Activity Detail Author Start: 12-21-2028 Screening for malignant neoplasm of colon [facility] Start: 08-25-2028 Lipid panel Lipid Screening [facility] Start: 07-20-2028 Lipid panel Lipid Screening [facility] Start: 01-04-2028 Lipid 1996 panel - Serum or Plasma Lipid Screening [facility] Start: 01-04-2028 Lipid panel Lipid Screening [facility] Start: 01-04-2028 LIPID SCREEN LIPID SCREEN [facility] Start: 08-30-2026 Screening for osteoporosis Bone Density Screening [facility] Start: 08-18-2026 Diabetes Screening Diabetes Screening [facility] Start: 08-13-2026 Diabetes Screening Diabetes Screening [facility] Start: 08-08-2026 Diabetes Screening Diabetes Screening [facility] Start: 08-05-2026 LIPID SCREEN LIPID SCREEN [facility] Start: 02-14-2026 Annual PCP Team Chronic Disease Visit Annual PCP Team Chronic Disease Visit [facility] Start: 02-14-2026 Depression Screening Depression Screening [facility] Start: 02-14-2026 Medicare Annual Wellness Visit Medicare Annual Wellness Visit [facility] Start: 02-11-2026 Annual PCP Team Chronic Disease Visit Annual PCP Team Chronic Disease Visit [facility] Start: 01-03-2026 DIABETES SCREEN DIABETES SCREEN [facility] Start: 01-03-2026 Diabetes Screening Diabetes Screening [facility] Start: 11-19-2025 End: 11-19-2025 Patient encounter procedure 11/19/2025 11:00 AM EDT Appointment Cat Scan [address] [place] [address] Dx: Lung nodules [R91.8]; Ground glass opacity [...] lung Former smoker Expected: 11/16/2025, Expires: 12/16/2025 [facility] Work Phone: Comment on above: Expected: 11/16/2025, Expires: Start: 11-14-2025 BP Controlled (<130/80) BP Controlled (<130/80) [facility] Start: 11-13-2025 Annual PCP Team Chronic Disease Visit Annual PCP Team Chronic Disease Visit [facility] Start: 11-13-2025 BP Controlled (<130/80) BP Controlled (<130/80) [facility] Start: 11-06-2025 Screening for malignant neoplasm of lung Lung Cancer Screening [facility] Start: 10-31-2025 Creatinine measurement Serum Creatinine [facility] Start: 10-08-2025 Annual PCP Team Chronic Disease Visit Annual PCP Team Chronic Disease Visit [facility] Start: 10-08-2025 BP Controlled (<130/80) BP Controlled (<130/80) [facility] Start: 09-20-2025 Complete blood count Hemoglobin/Hematocrit [facility] Start: 09-19-2025 Annual PCP Team Chronic Disease Visit Annual PCP Team Chronic Disease Visit [facility] Start: 09-19-2025 BP Controlled (<130/80) BP Controlled (<130/80) [facility] Start: 09-04-2025 BP Controlled (<130/80) BP Controlled (<130/80) [facility] Start: 08-14-2025 Annual PCP Team Chronic Disease Visit Annual PCP Team Chronic Disease Visit [facility] Start: 07-31-2025 Annual PCP Team Chronic Disease Visit Annual PCP Team Chronic Disease Visit [facility] Start: 07-18-2025 Annual PCP Team Chronic Disease Visit Annual PCP Team Chronic Disease Visit [facility] Start: 07-18-2025 BP Controlled (<130/80) BP Controlled (<130/80) [facility] Start: 07-05-2025 Annual PCP Team Chronic Disease Visit Annual PCP Team Chronic Disease Visit [facility] Start: 06-18-2025 End: 06-18-2025 Patient encounter procedure 06/18/2025 10:00 AM EST Office Visit [facility] [place] [address] [place] [address] Julio Draper MD [address] [place] [address] 4 month follow-up [facility] [place] Comment on above: 4 month follow-up Start: 06-07-2025 BP Controlled (<130/80) BP Controlled (<130/80) [facility] Start: 05-15-2025 Annual PCP Team Chronic Disease Visit Annual PCP Team Chronic Disease Visit [facility] Start: 05-10-2025 Screening for malignant neoplasm of lung Lung Cancer Screening [facility] Start: 04-21-2025 [facility] Start: 04-21-2025 Plain chest X-ray Chest 1 View (Portable) [facility] Start: 04-21-2025 End: 04-21-2025 [facility] Start: 04-21-2025 End: 04-21-2025 Emergency department patient visit Departed Emergency -Emergency Department Work Phone: Start: 04-21-2025 SARS-CoV-2, Influenza & RSV (PCR) SARS-CoV-2, Influenza & RSV (PCR) [facility] Start: 04-14-2025 [facility] Start: 04-13-2025 [facility] Start: 04-12-2025 Annual PCP Team Chronic Disease Visit Annual PCP Team Chronic Disease Visit [facility] Start: 04-12-2025 BP Controlled (<130/80) BP Controlled (<130/80) [facility] Start: 04-04-2025 End: 04-04-2025 Patient encounter procedure 04/04/2025 11:45 AM EDT Office Visit Pulmonary Medicine [address] [place] [address] Magali Nieves MD [address] [place] [address] 4 month f/u with Dr. Nieves Pulmonary Medicine Comment on above: 4 month f/u with Dr. Nieves Start: 03-04-2025 Influenza vaccination [facility] Start: 02-14-2025 End: 02-14-2025 Patient encounter procedure 02/14/2025 9:20 AM EDT Office Visit [facility] [place] [address] [place] [address] Julio Draper MD [address] [place] [address] Welcome to Medicare w/3 month follow-up [facility] [place] Comment on above: Welcome to Medicare w/3 month follow-up Start: 02-09-2025 [facility] Start: 02-09-2025 [facility] Start: 01-28-2025 End: 04-29-2025 Lipid 1996 panel - Serum or Plasma LIPID PANEL, FASTING Lab Routine Coronary artery disease involving [place] coronary artery of [place] heart without angina pectoris Expected: 01/28/2025, Expires: 04/29/2025 [facility] Work Phone: Comment on above: Expected: 01/28/2025, Expires: Start: 01-24-2025 End: 01-24-2025 Evaluation of diagnostic study results [facility] Start: 01-03-2025 Patient discharge [facility] Start: 12-31-2024 Influenza vaccination Influenza Vaccine (#1) [facility] Comment on above: Postponed from 03/04/2024 (Declined at t his time) Start: 11-14-2024 End: 11-14-2024 Patient encounter procedure Pulmonary Medicine Comment on above: 6 month follow up Start: 11-13-2024 End: 11-13-2024 Patient encounter procedure 11/13/2024 10:00 AM EDT Office Visit [facility] [place] [address] [place] [address] Julio Draper MD [address] [place] [address] 6mo follow up [facility] [place] Comment on above: 6mo follow up Start: 11-10-2024 Annual PCP Team Chronic Disease Visit Annual PCP Team Chronic Disease Visit [facility] Start: 11-10-2024 BP Controlled (<130/80) BP Controlled (<130/80) [facility] Start: 11-10-2024 Depression Screening Depression Screening [facility] Start: 11-06-2024 End: 11-06-2024 Patient encounter procedure 11/06/2024 10:00 AM EDT Appointment Cat Scan [address] [place] [address] Ground glass opacity present on imaging of lung [R91.8] Cat Scan Comment on above: Ground glass opacity present on imaging of lung [R91.8] Start: 11-05-2024 End: 07-07-2025 CT Chest WO contrast CT CHEST WO IVCON Radiology Routine Ground glass opacity present on imaging of lung Expected: 11/05/2024, Expires: 07/07/2025 [facility] Work Phone: Comment on above: Expected: 11/05/2024, Expires: Start: 11-02-2024 Screening for malignant neoplasm of lung Lung Cancer Screening [facility] Start: 10-31-2024 [facility] Start: 10-31-2024 [facility] Start: 10-31-2024 [facility] Start: 10-30-2024 Annual PCP Team Chronic Disease Visit Annual PCP Team Chronic Disease Visit [facility] Start: 10-30-2024 BP Controlled (<130/80) BP Controlled (<130/80) [facility] Start: 09-25-2024 End: 09-25-2024 Patient encounter procedure 09/25/2024 1:00 PM EDT Office Visit [facility] [place] [address] [place], [place] [id number] Anjum Knutson V, DO [address] [place], [place] [id number] Acute pain of right shoulder [M25.511] [facility] [place] Comment on above: Acute pain of right shoulder [M25.511] Start: 09-19-2024 End: 12-19-2024 CBC panel - Blood by Automated count COMPLETE BLOOD COUNT Lab Routine Acute pain of right shoulder Expected: 09/19/2024, Expires: 12/19/2024 [facility] Work Phone: Comment on above: Expected: 09/19/2024, Expires: Start: 09-19-2024 End: 12-19-2024 Erythrocyte sedimentation rate SEDIMENTATION RATE, WESTERGREN Lab Routine Acute pain of right shoulder Expected: 09/19/2024, Expires: 12/19/2024 [facility] Comment on above: Expected: 09/19/2024, Expires: Start: 09-19-2024 End: 12-19-2024 Fibrin D-dimer FEU [Mass/volume] in Platelet poor plasma D-DIMER Lab Routine Acute pain of right shoulder Expected: 09/19/2024, Expires: 12/19/2024 [facility] Comment on above: Expected: 09/19/2024, Expires: Start: 09-17-2024 [facility] Start: 09-06-2024 Patient discharge [facility] Start: 09-04-2024 End: 09-04-2024 Patient encounter procedure 09/04/2024 1:00 PM EST Office Visit Pulmonary Medicine [address] [place] [address] Jean-Pierre Vitale APRN.[employer] [address] [place] [address] FOLLOW UP PER PCP Pulmonary Medicine Comment on above: FOLLOW UP PER PCP Start: 08-30-2024 End: 08-30-2024 Patient encounter procedure 08/30/2024 10:05 AM EST Appointment Radiology [address] [place] [id number] Age-related osteoporosis without current pathological fracture [M81.0] Radiology Comment on above: Age-related osteoporosis without current pathological fracture [M81.0] Start: 08-25-2024 Annual PCP Team Chronic Disease Visit Annual PCP Team Chronic Disease Visit [facility] Start: 08-25-2024 BP Controlled (<130/80) BP Controlled (<130/80) [facility] Start: 08-25-2024 Complete blood count Hemoglobin/Hematocrit [facility] Start: 08-25-2024 Hepatitis B surface antibody level LDL Cholesterol [facility] Start: 08-21-2024 End: 08-30-2025 XR Chest PA and Lateral XR CHEST 2V FRONTAL/LAT Radiology Routine Pneumonia of right lower lobe due to infectious organism Expected: 08/21/2024, Expires: 08/30/2025 [facility] Work Phone: Comment on above: Expected: 08/21/2024, Expires: Start: 08-19-2024 Complete blood count Hemoglobin/Hematocrit [facility] Start: 08-18-2024 Creatinine measurement Serum Creatinine [facility] Start: 08-14-2024 End: 08-14-2024 Patient encounter procedure 08/14/2024 11:20 AM EST Office Visit [facility] [place] [address] [place] [address] Julio Draper MD [address] [place] [address] Discharge follow up [facility] [place] Comment on above: Discharge follow up Start: 08-13-2024 Creatinine measurement Serum Creatinine [facility] Start: 08-12-2024 Complete blood count Hemoglobin/Hematocrit [facility] Start: 08-10-2024 Referral to service [facility] Start: 08-10-2024 Patient discharge [facility] Start: 08-10-2024 Referral to service [facility] Start: 08-10-2024 Care of hemodialysis equipment [facility] Start: 08-10-2024 Hemodialysis care [facility] Start: 08-10-2024 [facility] Start: 08-08-2024 Complete blood count Hemoglobin/Hematocrit [facility] Start: 08-08-2024 Creatinine measurement Serum Creatinine [facility] Start: 08-08-2024 End: 08-08-2024 [facility] Start: 08-08-2024 Hemodialysis care [facility] Start: 08-06-2024 Respiratory secretion precautions [facility] Start: 08-06-2024 Following clinical pathway protocol [facility] Start: 08-06-2024 Care of hemodialysis equipment [facility] Start: 08-06-2024 Ambulation without limitation [facility] Start: 08-06-2024 Assessment of risk of venous thromboembolism [facility] Start: 08-06-2024 Continuous pulse oximetry [facility] Start: 08-06-2024 Insertion of catheter into peripheral vein [facility] Start: 08-06-2024 Measuring intake and output [facility] Start: 08-06-2024 Oxygen therapy [facility] Start: 08-06-2024 Providing care according to standard [facility] Start: 08-06-2024 Referral to manager of production [facility] Start: 08-06-2024 Referral to occupational therapist [facility] Start: 08-06-2024 Referral to service [facility] Start: 08-06-2024 Hemodialysis care [facility] Start: 08-06-2024 End: 08-06-2024 [facility] Start: 08-06-2024 Dual pressure spontaneous ventilation support [facility] Start: 08-06-2024 Admission procedure [facility] Start: 08-06-2024 Patient referral to dietitian [facility] Start: 08-03-2024 [facility] Start: 08-02-2024 [facility] Start: 07-27-2024 Referral to service [facility] Start: 07-27-2024 Patient discharge [facility] Start: 07-27-2024 Care of hemodialysis equipment [facility] Start: 07-27-2024 Hemodialysis care [facility] Start: 07-27-2024 [facility] Start: 07-25-2024 Care of hemodialysis equipment [facility] Start: 07-25-2024 Hemodialysis care [facility] Start: 07-25-2024 [facility] Start: 07-24-2024 Consultation [facility] Start: 07-24-2024 Oxygen therapy [facility] Start: 07-24-2024 Inhalation therapy procedure [facility] Start: 07-23-2024 Catheterization of vein [facility] Start: 07-23-2024 Notification of physician [facility] Start: 07-23-2024 [facility] Start: 07-23-2024 Dialysis care [facility] Start: 07-23-2024 Following clinical pathway protocol [facility] Start: 07-23-2024 Assessment of risk of venous thromboembolism [facility] Start: 07-23-2024 Insertion of catheter into peripheral vein [facility] Start: 07-23-2024 Measuring intake and output [facility] Start: 07-23-2024 Providing care according to standard [facility] Start: 07-23-2024 Provision of activity privileges [facility] Start: 07-23-2024 Referral to manager of production [facility] Start: 07-23-2024 Referral to occupational therapist [facility] Start: 07-23-2024 Referral to service [facility] Start: 07-23-2024 Tobacco use cessation education [facility] Start: 07-23-2024 Care of hemodialysis equipment [facility] Start: 07-23-2024 Hemodialysis care [facility] Start: 07-23-2024 End: 07-23-2024 [facility] Start: 07-23-2024 Admission procedure [facility] Start: 07-23-2024 Patient referral to dietitian [facility] Start: 07-20-2024 Hepatitis B surface antibody level LDL Cholesterol [facility] Start: 07-18-2024 End: 07-18-2024 Patient encounter procedure 07/18/2024 10:00 AM EST Office Visit [facility] [place] [address] [facility] [place] [address] Tasha Laureano, RESORT MANAGER.[employer] [address] [facility] [place] [address] Discharged from [facility] 07/11/24 - COPD exacerbation and pneumonia [facility] [place] Comment on above: Discharged from [facility] 07/11/24 - COPD exacer bation and pneumonia Start: 07-11-2024 Patient discharge [facility] Start: 07-11-2024 Referral to service [facility] Start: 07-11-2024 Care of hemodialysis equipment [facility] Start: 07-11-2024 Hemodialysis care [facility] Start: 07-11-2024 [facility] Start: 07-09-2024 End: 07-10-2024 [facility] Start: 07-09-2024 Referral to service [facility] Start: 07-09-2024 Care of hemodialysis equipment [facility] Start: 07-09-2024 Hemodialysis care [facility] Start: 07-08-2024 Following clinical pathway protocol [facility] Start: 07-08-2024 Assessment of risk of venous thromboembolism [facility] Start: 07-08-2024 Catheterization of vein [facility] Start: 07-08-2024 Insertion of catheter into peripheral vein [facility] Start: 07-08-2024 Measuring intake and output [facility] Start: 07-08-2024 Oxygen therapy [facility] Start: 07-08-2024 Physiotherapy of chest [facility] Start: 07-08-2024 Providing care according to standard [facility] Start: 07-08-2024 Provision of activity privileges [facility] Start: 07-08-2024 Referral to manager of production [facility] Start: 07-08-2024 Referral to occupational therapist [facility] Start: 07-08-2024 Referral to service [facility] Start: 07-08-2024 Respiratory secretion precautions [facility] Start: 07-08-2024 [facility] Start: 07-08-2024 Admission procedure [facility] Start: 07-08-2024 Inhalation therapy procedure [facility] Start: 07-05-2024 End: 07-05-2024 Patient encounter procedure 07/05/2024 10:05 AM EST Appointment Radiology [address] [place] [id number] Age-related osteoporosis without current pathological fracture [M81.0] Radiology Comment on above: Age-related osteoporosis without current pathological fracture [M81.0] Start: 07-04-2024 Advance Directive Discussion Advance Directive Discussion [facility] Start: 07-03-2024 [facility] Start: 06-30-2024 Annual PCP Team Chronic Disease Visit Annual PCP Team Chronic Disease Visit [facility] Start: 06-07-2024 End: 06-07-2024 Patient encounter procedure 06/07/2024 1:45 PM EST Office Visit Pulmonary Medicine [address] [place] [address] Magali Nieves MD [address] [place] [address] 6 mo ov Pulmonary Medicine Comment on above: 6 mo ov Start: 06-05-2024 Patient discharge [facility] Start: 06-05-2024 Anesthesia vascular shunt/shunt revision [facility] Start: 06-05-2024 Revj opn arven fstl w/o thrmbc dial grf [facility] Start: 05-15-2024 End: 05-15-2024 Patient encounter procedure 05/15/2024 10:00 AM EST Office Visit [facility] [place] [address] [place] [address] Julio Draper MD [address] [place] [address] 6 month follow up [facility] [place] Comment on above: 6 month follow up Start: 05-10-2024 End: 12-07-2024 CT Chest WO contrast [facility] Work Phone: Comment on above: Expected: 05/10/2024, Expires: Start: 05-10-2024 End: 05-10-2024 Patient encounter procedure 05/10/2024 1:00 PM EST Appointment Cat Scan [address] [place] [address] lung nodules [R91.8] Cat Scan Comment on above: lung nodules [R91.8] Start: 04-12-2024 DTaP/Tdap/Td Vaccines (2 - Td or Tdap) DTaP/Tdap/Td Vaccines (2 - Td or Tdap) [facility] Start: 04-12-2024 Urine microalbumin profile [facility] Start: 03-04-2024 Influenza vaccination [facility] Start: 02-20-2024 End: 02-20-2024 Patient encounter procedure Gastroenterology Comment on above: 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 [address] [address] Ryan Mchugh MD [address] [place] [address] gi bleed Gastroenterology Comment on above: gi bleed Start: 02-02-2024 Medicare Annual Wellness Visit Medicare Annual Wellness Visit [facility] Start: 01-08-2024 ANNUAL PCP TEAM CHRONIC DISEASE VISIT ANNUAL PCP TEAM CHRONIC DISEASE VISIT [facility] Start: 11-16-2023 ANNUAL PCP TEAM CHRONIC DISEASE VISIT ANNUAL PCP TEAM CHRONIC DISEASE VISIT [facility] Start: 11-12-2023 ANNUAL PCP TEAM CHRONIC DISEASE VISIT ANNUAL PCP TEAM CHRONIC DISEASE VISIT [facility] Start: 11-11-2023 End: 11-11-2023 Patient encounter procedure 11/11/2023 3:20 PM EDT Office Visit [facility] [place] [address] [facility] [place] [address] Julio Draper MD [address] [place] [address] Annual exam-will need med refills [facility] [place] Comment on above: Annual exam-will need med refills Start: 11-08-2023 End: 11-08-2023 Patient encounter procedure 11/08/2023 2:30 PM EDT Office Visit Pulmonary Medicine [address] [place] [address] Luna Swartz PAJunC [address] [place] [address] follow up Pulmonary Medicine Comment on above: follow up Start: 11-06-2023 ANNUAL PCP TEAM CHRONIC DISEASE VISIT ANNUAL PCP TEAM CHRONIC DISEASE VISIT [facility] Start: 11-06-2023 Pneumococcal Vaccine: 65+ Years (2 of 2 - PCV) Pneumococcal Vaccine: 65+ Years (2 of 2 - PCV) [facility] Start: 11-03-2023 End: 11-03-2023 Patient encounter procedure 11/03/2023 8:20 AM EDT Appointment Cat Scan [id number] [place] [address] Empyema of pleura (HCC) [J86.9] Cat Scan Comment on above: Empyema of pleura (HCC) [J86.9] Start: 10-24-2023 End: 09-14-2024 CT Chest WO contrast [facility] Routine Parapneumonic effusion Persistent pneumonia Expected: 10/24/2023, Expires: 09/14/2024 [facility] Work Phone: Comment on above: Expected: 10/24/2023, Expires: Start: 09-01-2023 Administration of blood product [facility] Start: 09-01-2023 [facility] Start: 08-26-2023 Screening for osteoporosis Bone Density Screening [facility] Start: 07-09-2023 Patient discharge [facility] Start: 07-09-2023 Care planning and problem solving actions [facility] Start: 07-08-2023 Care planning and problem solving actions [facility] Start: 07-08-2023 Application of intermittent pneumatic compression device [facility] Start: 07-07-2023 Blood chemistry [facility] Start: 07-07-2023 Consultation [facility] Start: 07-07-2023 Assessment of risk of venous thromboembolism [facility] Start: 07-07-2023 Inhalation therapy procedure [facility] Start: 07-07-2023 Insertion of catheter into peripheral vein [facility] Start: 07-07-2023 Oxygen therapy [facility] Start: 07-07-2023 Providing care according to standard [facility] Start: 07-07-2023 Provision of activity privileges [facility] Start: 07-07-2023 Referral to occupational therapist [facility] Start: 07-07-2023 Referral to service [facility] Start: 07-07-2023 Following clinical pathway protocol [facility] Start: 07-07-2023 Verification routine [facility] Start: 07-07-2023 Admission procedure [facility] Start: 07-07-2023 Hospital admission, emergency, from emergency room, medical nature [facility] Start: 07-07-2023 End: 07-07-2023 Blood culture [facility] Start: 07-07-2023 Bacterial culture [facility] Start: 07-07-2023 End: 07-07-2023 [facility] Start: 07-07-2023 Vital signs measurements [facility] Start: 07-07-2023 Ultrasonic guidance for thoracentesis [facility] Start: 07-07-2023 Patient referral to dietitian [facility] Start: 07-05-2023 End: 07-05-2023 [facility] Start: 07-04-2023 Advance Directive Discussion Advance Directive Discussion [facility] Start: 07-04-2023 Behavioral Health Screening Behavioral Health Screening [facility] Start: 07-04-2023 Depression Assessment Depression Assessment [facility] Start: 06-23-2023 Patient discharge [facility] Start: 06-22-2023 Referral to occupational therapist [facility] Start: 06-22-2023 End: 06-22-2023 Referral to service [facility] Start: 06-22-2023 [facility] Start: 06-20-2023 Bacteria identified in Blood by Culture Blood Culture [facility] Start: 06-20-2023 Administration of blood product [facility] Start: 06-20-2023 Application of intermittent pneumatic compression device [facility] Start: 06-20-2023 Assessment of risk of venous thromboembolism [facility] Start: 06-20-[address] [facility] Start: 06-20-2023 Insertion of catheter into peripheral vein [facility] Start: 06-20-2023 Measuring intake and output [facility] Start: 06-20-2023 Oxygen therapy [facility] Start: 06-20-2023 Providing care according to standard [facility] Start: 06-20-2023 Referral to gastroenterology service [facility] Start: 06-20-2023 Vital signs measurements [facility] Start: 06-20-2023 [facility] Start: 06-20-2023 Following clinical pathway protocol [facility] Start: 06-20-2023 Verification routine [facility] Start: 06-20-2023 Hospital admission, emergency, from emergency room, medical nature [facility] Start: 06-20-2023 Admission procedure [facility] Start: 06-20-2023 Leukocyte reduced red blood cells [facility] Start: 06-20-2023 End: 06-20-2023 [facility] Start: 06-20-2023 End: 06-20-2023 Administration of blood product [facility] Start: 06-20-2023 End: 06-20-2023 Blood culture [facility] Start: 06-16-2023 Referral to service [facility] Start: 06-16-2023 Patient discharge [facility] Start: 06-15-2023 End: 06-15-2023 Administration of blood product [facility] Start: 06-13-2023 Anaerobic Culture Anaerobic Culture [facility] Start: 06-13-2023 Vital signs measurements [facility] Start: 06-13-2023 [facility] Start: 06-12-2023 Speech therapy assessment [facility] Start: 06-11-2023 Application of intermittent pneumatic compression device [facility] Start: 06-08-2023 End: 06-08-2023 Referral to gastroenterology service [facility] Start: 06-08-2023 [facility] Start: 06-07-2023 Following clinical pathway protocol [facility] Start: 06-07-2023 Vital signs measurements [facility] Start: 06-07-2023 [facility] Start: 06-07-[address] [facility] Start: 06-07-2023 Blood chemistry [facility] Start: 06-07-2023 [facility] Start: 06-06-2023 Blood chemistry [facility] Start: 06-05-2023 Care planning and problem solving actions [facility] Start: 06-05-2023 Blood chemistry [facility] Start: 06-05-2023 Inhalation therapy procedure [facility] Start: 06-04-2023 Blood chemistry [facility] Start: 06-03-2023 Blood chemistry [facility] Start: 06-03-2023 Continuous positive airway pressure ventilation treatment [facility] Start: 06-02-2023 Bacteria identified in Blood by Culture Blood Culture [facility] Start: 06-02-2023 Bacteria identified in Urine by Culture Urine Culture [facility] Start: 06-02-2023 Respiratory Panel (PCR) Respiratory Panel (PCR) [facility] Start: 06-02-2023 End: 06-02-2023 Following clinical pathway protocol [facility] Start: 06-02-2023 Methicillin resistant Staphylococcus aureus screening test [facility] Start: 06-02-2023 Ambulation without limitation [facility] Start: 06-02-2023 Assessment of risk of venous thromboembolism [facility] Start: 06-02-2023 Bacteria identified in Sputum by Culture [facility] Start: 06-02-2023 Consultation [facility] Start: 06-02-2023 Continuous pulse oximetry [facility] Start: 06-02-2023 Insertion of catheter into peripheral vein [facility] Start: 06-02-2023 Measuring intake and output [facility] Start: 06-02-2023 Oxygen therapy [facility] Start: 06-02-2023 Providing care according to standard [facility] Start: 06-02-2023 Referral to occupational therapist [facility] Start: 06-02-2023 Referral to service [facility] Start: 06-02-2023 Respiratory therapy [facility] Start: 06-02-2023 Vital signs measurements [facility] Start: 06-02-2023 [facility] Start: 06-02-2023 Verification routine [facility] Start: 06-02-2023 Admission procedure [facility] Start: 06-02-2023 Blood culture [facility] Start: 06-02-2023 [facility] Start: 06-02-2023 Blood culture [facility] Start: 06-02-2023 Continuous pulse oximetry [facility] Start: 06-02-2023 Dual pressure spontaneous ventilation support [facility] Start: 05-31-2023 End: 06-30-2023 Ct thorax w/o contrast material CT CHEST [facility] Radiology Routine Lung nodules Centrilobular emphysema (HCC) Former cigarette smoker Expected: 05/31/2023, Expires: 06/30/2023 [facility] Work Phone: Comment on above: Expected: 05/31/2023, Expires: Start: 05-03-2023 ANNUAL PCP TEAM CHRONIC DISEASE VISIT ANNUAL PCP TEAM CHRONIC DISEASE VISIT [facility] Start: 04-05-2023 DIABETES SCREEN DIABETES SCREEN [facility] Start: 03-04-2023 Covid-19 Vaccine ( season) Covid-19 Vaccine ( season) [facility] Start: 03-04-2023 Influenza vaccination [facility] Start: 12-03-2022 Patient discharge [facility] Start: 12-01-2022 Physiotherapy of chest [facility] Start: 11-30-2022 Referral to service [facility] Start: 11-30-2022 Following clinical pathway protocol [facility] Start: 11-30-2022 Ambulation without limitation [facility] Start: 11-30-2022 Assessment of risk of venous thromboembolism [facility] Start: 11-30-2022 Catheterization of vein [facility] Start: 11-30-2022 Elevation of head of bed [facility] Start: 11-30-2022 Incentive spirometry [facility] Start: 11-30-2022 Inhalation therapy procedure [facility] Start: 11-30-2022 Insertion of catheter into peripheral vein [facility] Start: 11-30-2022 Measuring intake and output [facility] Start: 11-30-2022 Oxygen therapy [facility] Start: 11-30-2022 Patient education [facility] Start: 11-30-2022 Providing care according to standard [facility] Start: 11-30-2022 Referral to service [facility] Start: 11-30-2022 Bacteria identified in Sputum by Culture [facility] Start: 11-30-2022 Legionella pneumophila Ag [Presence] in Urine [facility] Start: 11-30-2022 Streptococcus pneumoniae antigen assay [facility] Start: 11-30-2022 End: 11-30-2022 [facility] Start: 11-30-2022 Verification routine [facility] Start: 11-30-2022 Admission procedure [facility] Start: 11-30-2022 End: 11-30-2022 Blood culture [facility] Start: 11-30-2022 [facility] Start: 11-28-2022 [facility] Start: 11-06-2022 End: 01-06-2023 Comprehensive metabolic 2000 panel - Serum or Plasma COMP METABOLIC PANEL Lab Routine Routine medical exam Expected: 11/06/2022, Expires: 01/06/2023 [facility] Work Phone: Comment on above: Expected: 11/06/2022, Expires: 3 Start: 11-06-2022 End: 01-06-2023 Lipid 1996 panel - Serum or Plasma LIPID PANEL BASIC Lab Routine Routine medical exam Expected: 11/06/2022, Expires: 01/06/2023 [facility] Work Phone: Comment on above: Expected: 11/06/2022, Expires: 3 Start: 08-31-2022 COVID-19 VACCINE (5 - Pfizer series) COVID-19 VACCINE (5 - Pfizer series) [facility] Start: 08-26-2022 Mammography [facility] Start: 08-26-2022 Screening for malignant neoplasm of breast Mammogram Screening [facility] Start: 08-18-2022 Colonoscopy COLONOSCOPY [facility] Start: 08-18-2022 COLORECTAL CANCER SCREENING COLORECTAL CANCER SCREENING [facility] Start: 08-18-2022 Screening for malignant neoplasm of colon [facility] Start: 08-12-2022 ANNUAL PCP TEAM CHRONIC DISEASE VISIT ANNUAL PCP TEAM CHRONIC DISEASE VISIT [facility] Start: 08-12-2022 PNEUMOCOCCAL: 65+ (2 - PCV) PNEUMOCOCCAL: 65+ (2 - PCV) [facility] Start: 07-04-2022 ADVANCE DIRECTIVE DISCUSSION ADVANCE DIRECTIVE DISCUSSION [facility] Start: 07-04-2022 DEPRESSION ASSESSMENT DEPRESSION ASSESSMENT [facility] Start: 05-25-2022 End: 07-25-2022 Alpha 1 antitrypsin [Mass/volume] in Serum or Plasma [id number] Lab Routine Expected: 05/25/2022, Expires: 07/25/2022 [facility] Work Phone: Comment on above: Expected: 05/25/2022, Expires: 3 Start: 05-06-2022 Adult depression screening assessment DEPRESSION SCREENING [facility] Start: 05-04-2022 End: 02-20-2023 Ct thorax w/o contrast material CT CHEST WO [facility] Radiology Routine COVID-19 Lung nodules Expected: 05/04/2022, Expires: 02/20/2023 [facility] Work Phone: Comment on above: Expected: 05/04/2022, Expires: 3 Start: 03-04-2022 Influenza vaccination INFLUENZA (#1) [facility] Start: 01-04-2022 COVID-19 VACCINE (4 - Booster for Pfizer series) COVID-19 VACCINE (4 - Booster for Pfizer series) [facility] Start: 10-30-2021 COVID-19 VACCINE (4 - Booster for Pfizer series) COVID-19 VACCINE (4 - Booster for Pfizer series) [facility] Start: 07-04-2021 ADVANCE DIRECTIVE DISCUSSION ADVANCE DIRECTIVE DISCUSSION [facility] Start: 07-04-2021 DEPRESSION ASSESSMENT DEPRESSION ASSESSMENT [facility] Start: 08-18-2017 Screening for malignant neoplasm of colon [facility] Start: 2016 RSV Immunization aged 60 or older (1 - 1-dose 60+ series) RSV Immunization aged 60 or older (1 - 1-dose 60+ series) [facility] Start: 2016 RSV Vaccine (1 - 1-dose 60+ series) RSV Vaccine (1 - 1-dose 60+ series) [facility] Start: 2006 SHINGRIX VACCINE (1 of 2) SHINGRIX VACCINE (1 of 2) [facility] Start: 2006 Zoster Vaccines (1 of 2) Zoster Vaccines (1 of 2) [facility] Start: 2001 COLOGUARD (FIT-DNA) COLOGUARD (FIT-DNA) [facility] Start: [address] COLONOGRAPHY [facility] Start: 2001 FECAL OCCULT BLOOD FECAL OCCULT BLOOD [facility] Start: 2001 Screening for malignant neoplasm of colon [facility] Start: 2001 SIGMOIDOSCOPY SIGMOIDOSCOPY [facility] Start: 1996 Screening for malignant neoplasm of breast Mammogram [facility] Start: 1986 Zoledronic acid therapy ALPHA-1 ANTITRYPSIN DEFICIENCY SCREENING [facility] Start: 1976 Hepatitis B Vaccine (1 of 3 - Risk Dialysis 4-dose series) Hepatitis B Vaccine (1 of 3 - Risk Dialysis 4-dose series) [facility] Start: 1974 BP Controlled (<130/80) BP Controlled (<130/80) [facility] Start: 1968 Depression Screening Depression Screening [facility] Start: 1956 Screening for malignant neoplasm of colon [facility] Start: 1956 Screening for osteoporosis Bone Density Scan [facility] Ambulatory ECG [facility] Anion gap measurement [facility] Anion gap measurement [facility] Anion gap measurement [facility] Anion gap measurement [facility] Anion gap measurement [facility] Anion gap measurement [facility] Bacteria identified in Blood by Culture Blood Culture [facility] Bacteria identified in Blood by Culture Blood Culture [facility] Bacteria identified in Body fluid by Culture [facility] Bacteria identified in Unspecified specimen by Anaerobe culture [facility] Bacteria identified in Unspecified specimen by Anaerobe culture [facility] Bilirubin measuremen t, urine [facility] BUN/Creatinine ratio [facility] BUN/Creatinine ratio [facility] BUN/Creatinine ratio [facility] BUN/Creatinine ratio [facility] BUN/Creatinine ratio [facility] BUN/Creatinine ratio [facility] Calcium [Mass/volume ] in Serum or Plasma [facility] Calcium [Mass/volume ] in Serum or Plasma [facility] Calcium [Mass/volume ] in Serum or Plasma [facility] Calcium [Mass/volume ] in Serum or Plasma [facility] Calcium [Mass/volume ] in Serum or Plasma [facility] Calcium [Mass/volume ] in Serum or Plasma [facility] Carbon dioxide, tota l [Moles/volume] in Serum or Plasma [facility] Carbon dioxide, tota l [Moles/volume] in Serum or Plasma [facility] Carbon dioxide, tota l [Moles/volume] in Serum or Plasma [facility] Carbon dioxide, tota l [Moles/volume] in Serum or Plasma [facility] Carbon dioxide, tota l [Moles/volume] in Serum or Plasma [facility] Carbon dioxide, tota l [Moles/volume] in Serum or Plasma [facility] Chloride [Moles/volu me] in Serum or Plasma [facility] Chloride [Moles/volu me] in Serum or Plasma [facility] Chloride [Moles/volu me] in Serum or Plasma [facility] Chloride [Moles/volu me] in Serum or Plasma [facility] Chloride [Moles/volu me] in Serum or Plasma [facility] Chloride [Moles/volu me] in Serum or Plasma [facility] COLOGUARD COLOGUARD Lab [facility] Screening for colon cancer Ordered: 11/05/2022 [facility] Work Phone: Comment on above: Ordered: 11/05/2022 Creatinine [Moles/volume] in Serum or Plasma [facility] Creatinine [Moles/volume] in Serum or Plasma [facility] Creatinine [Moles/volume] in Serum or Plasma [facility] Creatinine [Moles/volume] in Serum or Plasma [facility] Creatinine [Moles/volume] in Serum or Plasma [facility] Creatinine [Moles/volume] in Serum or Plasma [facility] CT Chest WO contrast CT CHEST WO IVCON Radiology Routine Parapneumonic effusion Persistent pneumonia 11/03/2023 8:39 AM EDT [facility] Work Phone: CT Chest WO contrast CT CHEST WO IVCON Radiology Routine Ground glass opacity present on imaging of lung 11/06/2024 10:16 AM EDT [facility] Work Phone: Ct thorax w/o contra st material CT CHEST WO IVCON Radiology Routine Lung nodules Centrilobular emphysema (HCC) Former cigarette smoker 05/25/2023 3:26 PM EST [facility] Work Phone: End: 09-13-2025 DBT Breast - bilateral screening AISLINN SCREENING [facility] Radiology Routine Encounter for screening mammogram for breast cancer 1 Occurrences starting 08/14/2024 until 09/13/2025 [facility] Work Phone: Comment on above: 1 Occurrences starting 08/14/2024 until 09/13/2025 End: 06-14-2025 DXA Skeletal system.axial Views for bone density DXA-AXIAL SKELETON Radiology Routine Age-related osteoporosis without current pathological fracture 1 Occurrences starting 05/15/2024 until 06/14/2025 [facility] Work Phone: Comment on above: 1 Occurrences starting 05/15/2024 until 06/14/2025 DXA Skeletal system.axial Views for bone density DXA-AXIAL SKELETON Radiology Routine Age-related osteoporosis without current pathological fracture 08/30/2024 10:24 AM EST [facility] [employer] Work Phone: End: 02-08-2025 ENTEROSCOPY ENTEROSCOPY Endoscopy Routine AVM (arteriovenous malformation) of small bowel, acquired 1 Occurrences starting 02/09/2024 until 02/08/2025 [facility] Work Phone: Comment on above: 1 Occurrences starting 02/09/2024 until 02/08/2025 Glucose [Mass/volume ] in Serum or Plasma [facility] Glucose [Mass/volume ] in Serum or Plasma [facility] Glucose [Mass/volume ] in Serum or Plasma [facility] Glucose [Mass/volume ] in Serum or Plasma [facility] Glucose [Mass/volume ] in Serum or Plasma [facility] Glucose [Mass/volume ] in Serum or Plasma [facility] Hematocrit [Volume Fraction] of Blood [facility] Hematocrit [Volume Fraction] of Blood [facility] Hematocrit [Volume Fraction] of Blood [facility] Hematocrit [Volume Fraction] of Blood [facility] Hematocrit [Volume Fraction] of Blood [facility] Hemoglobin [Mass/vol ume] in Blood [facility] Hemoglobin [Mass/vol ume] in Blood [facility] Hemoglobin [Mass/vol ume] in Blood [facility] Hemoglobin [Mass/vol ume] in Blood [facility] Hemoglobin [Mass/vol ume] in Blood [facility] Hemoglobin [Presence ] in Urine [facility] Leukocytes [#/volume ] in Blood [facility] Leukocytes [#/volume ] in Blood [facility] Leukocytes [#/volume ] in Blood [facility] Leukocytes [#/volume ] in Blood [facility] Leukocytes [#/volume ] in Blood [facility] End: 11-05-2023 AISLINN SCREENING AISLINN SCREENING Radiology Routine Encounter for screening mammogram for breast cancer 1 Occurrences starting 10/06/2022 until 11/05/2023 [facility] [employer] Work Phone: Comment on above: 1 Occurrences starting 10/06/2022 until 11/05/2023 Mean corpuscular hemoglobin concentration determination [facility] Mean corpuscular hemoglobin concentration determination [facility] Mean corpuscular hemoglobin concentration determination [facility] Mean corpuscular hemoglobin concentration determination [facility] Mean corpuscular hemoglobin concentration determination [facility] Mean corpuscular hemoglobin determination [facility] Mean corpuscular hemoglobin determination [facility] Mean corpuscular hemoglobin determination [facility] Mean corpuscular hemoglobin determination [facility] Mean corpuscular hemoglobin determination [facility] Measurement of keton es in urine using dipstick [facility] Measurement of renal function [facility] Measurement of renal function [facility] Measurement of renal function [facility] Measurement of renal function [facility] Measurement of renal function [facility] Measurement of renal function [facility] End: 10-06-2024 MG Breast Screening [facility]ISLINN SCREENING Radiology Routine Encounter for screening mammogram for breast cancer 1 Occurrences starting 09/07/2023 until 10/06/2024 [facility] [employer] Work Phone: Comment on above: 1 Occurrences starting 09/07/2023 until 10/06/2024 Microscopic urinalysis [facility] Neutrophil count [facility] Neutrophil count [facility] Neutrophil count [facility] Neutrophil count [facility] Neutrophil count [facility] Neutrophil percent differential count [facility] Neutrophil percent differential count [facility] Neutrophil percent differential count [facility] Neutrophil percent differential count [facility] Neutrophil percent differential count [facility] OXIMETRY - NOCTURNAL OXIMETRY - NOCTURNAL Procedures Routine Stage 3 severe COPD by GOLD classification ([facility]) COVID-19 Ordered: 01/21/2022 [facility] Work Phone: Comment on above: Ordered: 01/21/2022 End: 02-07-2023 OXIMETRY WITH AMBULATION OXIMETRY WITH AMBULATION PFT Routine COVID-19 Stage 3 severe COPD by GOLD classification ([facility]) 1 Occurrences starting 01/08/2022 until 02/07/2023 [facility] Work Phone: Comment on above: 1 Occurrences starting 01/08/2022 until 02/07/2023 Patient Education [facility] Work Phone: Patient referral [facility] Work Phone: End: 06-28-[address] attenuation skull base mid-thigh NM PET/CT SKULL-THIGH INITIAL Radiology Routine Lung nodules 1 Occurrences starting 05/30/2023 until 06/28/2024 [facility] Work Phone: Comment on above: 1 Occurrences starting 05/30/2023 until 06/28/2024 pH of Urine [facility] Platelets [#/volume] in Blood [facility] Platelets [#/volume] in Blood [facility] Platelets [#/volume] in Blood [facility] Platelets [#/volume] in Blood [facility] Platelets [#/volume] in Blood [facility] Potassium [Moles/vol ume] in Serum or Plasma [facility] Potassium [Moles/vol ume] in Serum or Plasma [facility] Potassium [Moles/vol ume] in Serum or Plasma [facility] Potassium [Moles/vol ume] in Serum or Plasma [facility] Potassium [Moles/vol ume] in Serum or Plasma [facility] Potassium [Moles/vol ume] in Serum or Plasma [facility] End: 12-11-2023 Radiologic exam chest 2 views XR CHEST 2V FRONTAL/LAT Radiology Routine COPD with exacerbation (HCC) Abnormal breath sounds 1 Occurrences starting 11/11/2022 until 12/11/2023 [facility] Work Phone: Comment on above: 1 Occurrences starting 11/11/2022 until 12/11/2023 Radiologic exam ches t 2 views XR CHEST 2V FRONTAL/LAT Radiology Routine COPD with exacerbation (HCC) Abnormal breath sounds 11/11/2022 3:15 PM EDT [facility] Work Phone: End: 01-09-2024 Radiologic exam chest 2 views XR CHEST 2V FRONTAL/LAT Radiology Routine Pneumonia of left lower lobe due to infectious organism 1 Occurrences starting 12/10/2022 until 01/09/2024 [facility] Work Phone: Comment on above: 1 Occurrences starting 12/10/2022 until 01/09/2024 Red blood cell count [facility] Red blood cell count [facility] Red blood cell count [facility] Red blood cell count [facility] Red blood cell count [facility] Red cell distributio n width determination [facility] Red cell distributio n width determination [facility] Red cell distributio n width determination [facility] Red cell distributio n width determination [facility] Red cell distributio n width determination [facility] Removal impacted cer umen irrigation/lvg unilat AMBULATORY EAR LAVAGE/IRRIGATION Procedures Routine Impacted cerumen of both ears Ordered: 08/25/2023 [facility] Work Phone: Comment on above: Ordered: 08/25/2023 Respiratory pathogen s DNA and RNA panel - Respiratory specimen by FOZIA with probe detection [facility] Sodium [Moles/volume ] in Serum or Plasma [facility] Sodium [Moles/volume ] in Serum or Plasma [facility] Sodium [Moles/volume ] in Serum or Plasma [facility] Sodium [Moles/volume ] in Serum or Plasma [facility] Sodium [Moles/volume ] in Serum or Plasma [facility] Sodium [Moles/volume ] in Serum or Plasma [facility] Specific gravity of Urine [facility] Urea nitrogen [Mass/volume] in Serum or Plasma [facility] Urea nitrogen [Mass/volume] in Serum or Plasma [facility] Urea nitrogen [Mass/volume] in Serum or Plasma [facility] Urea nitrogen [Mass/volume] in Serum or Plasma [facility] Urea nitrogen [Mass/volume] in Serum or Plasma [facility] Urea nitrogen [Mass/volume] in Serum or Plasma [facility] Urinalysis, blood, qualitative [facility] Urine dipstick for glucose [facility] Urine dipstick for leukocyte esterase [facility] Urine dipstick for nitrite [facility] Urine dipstick for protein [facility] Urine examination [facility] Urine microscopy: epithelial cells [facility] Urine Microscopy: wh ite cells [facility] Urobilinogen [Presen ce] in Urine [facility] End: 11-29-2024 XR Chest PA and Lateral XR CHEST 2V FRONTAL/LAT Radiology Routine Chronic obstructive pulmonary disease with acute exacerbation (HCC) 1 Occurrences starting 10/31/2023 until 11/29/2024 [facility] Work Phone: Comment on above: 1 Occurrences starting 10/31/2023 until 11/29/2024 XR Chest PA and Lateral XR CHEST 2V FRONTAL/LAT Radiology Routine Chronic obstructive pulmonary disease with acute exacerbation (HCC) 10/31/2023 6:24 PM EDT [facility] XR Chest PA and Lateral XR CHEST 2V FRONTAL/LAT Radiology Routine Pneumonia of right lower lobe due to infectious organism 10/08/2024 7:27 PM EDT [facility] Work Phone: [facility] [place] [facility] [place] [facility] [place] [facility] Immunizations Immunization Date Immunization Notes Care Provider Fa [facility] 11-05-2022 pneumococcal Conjuga te, unspecified formulation Julio Draper MD Work Phone: [facility] Work Phone: 11-05-2022 pneumococcal (PCV20) vaccine, 20 valent (PREVNAR 20) Julio Draper MD Work Phone: [facility] 05-03-2022 COVID-19 booster vaccine, age 12+ yr, bivalent (PFIZER-BIONTECH) Julio Draper MD Work Phone: [facility] Work Phone: 05-03-2022 influenza, high-dose , quadrivalent vaccine (FLUZONE HIGH DOSE QUADRIVALENT) Julio Draper MD Work Phone: [facility] Work Phone: 05-03-2022 influenza virus vacc ine, unspecified formulation Luna Swartz PA-C Work Phone: [facility] 09-04-2021 COVID-19 original vaccine, age 12+ yr, monovalent (PFIZER-BIONTECH - MAURO TOP) Julio Draper MD Work Phone: [facility] Work Phone: 08-12-2021 Influenza, high dose seasonal Dr. Julio Draper MD Work Phone: [facility] 08-12-2021 influenza, high dose seasonal, preservative-free Dr. Julio Draper Work Phone: [facility] 08-12-2021 influenza, high-dose , quadrivalent vaccine (FLUZONE HIGH DOSE QUADRIVALENT) Ev Hinkle APRN.[employer] Work Phone: [facility] 08-12-2021 pneumococcal polysaccharide vaccine, 23 valent Ev Hinkle APRN.[employer]ER Work Phone: [facility] 10-06-2020 COVID-19 vaccine, ag e 12+ yr (PFIZER-BIONTECH - PURPLE TOP) Ev Hinkle APRN.[employer]ER Work Phone: [facility] Work Phone: 09-10-2020 Covid (Pfizer) [facility] 09-08-2020 COVID-19 vaccine, ag e 12+ yr ([employer] - PURPLE TOP) Ev Hinkle APRN.[employer]ER Work Phone: [facility] Work Phone: 04-01-2020 influenza, injectabl e, quadrivalent, contains preservative Ev Hinkle APRN.[employer]ER Work Phone: [facility] 07-06-2018 influenza, injectabl e, quadrivalent, contains preservative Ev Hinkle APRN.[employer]ER Work Phone: [facility] 04-17-2016 Influenza virus vaccine [facility] 04-17-2016 influenza, seasonal, injectable, preservative free Julio Draper MD Work Phone: [facility] Work Phone: 04-03-2016 influenza virus vacc ine, unspecified formulation Ev Hinkle APRN.[employer]ER Work Phone: [facility] Work Phone: 09-05-2015 pneumococcal polysaccharide vaccine, 23 valent Ev Hinkle APRN.[employer] Work Phone: [facility] 05-05-2015 Influenza virus vaccine [facility] 05-05-2015 influenza, seasonal, injectable, preservative free Julio Draper MD Work Phone: [facility] Work Phone: 04-21-2015 influenza, seasonal, injectable Ev Hinkle APRN.[employer] Work Phone: [facility] Work Phone: 05-04-2014 Influenza virus vaccine [facility] 05-04-2014 influenza, seasonal, injectable, preservative free Julio Draper MD Work Phone: [facility] Work Phone: 04-12-2014 tetanus toxoid, redu katie diphtheria toxoid, and acellular pertussis vaccine, adsorbed Ev Hinkle APRN.[employer]ER Work Phone: [facility] Work Phone: 05-04-2013 influenza virus vacc ine, unspecified formulation Ev Manan OLSON.[employer]ER Work Phone: [facility] Payers Date Payer Category Payer Private Health Insurance [employer] MED ICARE SUPPLEMENT [id number] 2024 Medicare [id number] 2023 Self-pay [id number] 2021 Medicare [id number] 2021 Medicare [id number] 2020 Unknown [facility] CE PLAN [place] PPO CONNE[place] GENERIC [id number] 2020-Present [phone] [address] [place] [address] PPO [id number] 2020 Unknown [id number] [id number]. [id number] 2020 Unknown [id number] 2016 Unknown [id number] 1956 Unknown [id number] 2.16.840.1.427068.3.579.2. 627 Unknown [id number] 2.16.840.1.956675.3.579.2. 462 Unknown [id number] 2.16.840.1.870796.3.579.2. 462 Unknown [id number] 2.16.840.1.549776.3.579.2. 462 Unknown [id number] 2.16.840.1.685652.3.579.2. 462 Unknown [id number] 2.16.840.1.169999.3.579.2. 462 Unknown [id number] 2.16.840.1.159000.3.579.2. 462 Unknown [id number] 2.16.840.1.319597.3.579.2. 462 Unknown [id number] 2.16.840.1.154510.3.579.2. 462 Unknown [id number] 2.16.840.1.021772.3.579.2. 462 Unknown [id number] 2.16.840.1.732905.3.579.2. 462 Unknown [id number] 2.16.840.1.400941.3.579.2. 462 Unknown [id number] 2.16.840.1.061599.3.579.2. 462 Unknown [id number] 2.16.840.1.822497.3.579.2. 462 Unknown [id number] 2.16.840.1.167649.3.579.2. 462 Unknown [id number] 2.16.840.1.191710.3.579.2. 462 Unknown [id number] 2.16.840.1.495058.3.579.2. 462 Unknown [id number] 2.16.840.1.091408.3.579.2. 462 Unknown [id number] 2.16.840.1.895969.3.579.2. 462 Unknown [id number] 2.16.840.1.506077.3.579.2. 462 Unknown [id number] 2.16.840.1.926802.3.579.2. 462 Unknown [id number] 2.16.840.1.890980.3.579.2. 462 Unknown [id number] 2.16.840.1.148230.3.579.2. 462 Unknown [id number] 2.16.840.1.129268.3.579.2. 462 Unknown [id number] 2.16.840.1.175478.3.579.2. 462 Unknown [id number] 2.16.840.1.131157.3.579.2. 462 Unknown [id number] 2.16.840.1.209871.3.579.2. 462 Unknown [id number] 2.16.840.1.998542.3.579.2. 462 Unknown [id number] 2.16.840.1.330353.3.579.2. 462 Unknown [id number] 2.16.840.1.946537.3.579.2. 462 Unknown [id number] 2.16.840.1.805213.3.579.2. 462 Unknown [id number] 2.16.840.1.609863.3.579.2. 462 Unknown [id number] 2.16.840.1.024579.3.579.2. 462 Unknown [id number] 2.16.840.1.054691.3.579.2. 462 Unknown [id number] 2.16.840.1.906830.3.579.2. 462 Unknown [id number] 2.16.840.1.113063.3.579.2. 462 Unknown [id number] 2.16.840.1.733145.3.579.2. 462 Unknown [id number] 2.16.840.1.480568.3.579.2. 462 Unknown [id number] 2.16.840.1.155842.3.579.2. 462 Unknown [id number] 2.16.840.1.671432.3.579.2. 462 Unknown [id number] 2.16.840.1.054398.3.579.2. 462 Social History Date Type Detail Facility Start: 09-08-2015 End: 04-21-2025 Tobacco smoking status NHIS Ex-smoker [facility] Work Phone: Start: 1974 End: 05-23-2016 History of tobacco use Current smoker [facility] Work Phone: Start: 1974 End: 05-23-2016 History of tobacco use Cigarette Smoker [facility] Work Phone: Start: 09-08-2015 End: 11-04-2022 Cigarettes smoked current (pack per day) - Reported 0.5 [facility] Start: 09-08-2015 End: 04-12-2024 Tobacco use and exposure Smokeless tobacco non-user [facility] Work Phone: Start: 10-14-2021 End: 02-11-2025 Alcohol intake Current non-drinker of alcohol (finding) [facility] Start: 11-12-2019 End: 11-04-2022 History SDOH Alcohol Frequency 1 [facility] Start: 11-12-2019 End: 11-04-2022 History SDOH Social Connections Phone 5 [facility] Start: 11-12-2019 End: 11-04-2022 History SDOH Social Connections Living 3 [facility] Start: 11-12-2019 End: 11-04-2022 History SDOH Physical Activity DPW 0 [facility] Start: 11-12-2019 End: 11-04-2022 History SDOH Stress 2 [facility] Start: 11-12-2019 End: 11-04-2022 History SDOH Financial 4 [facility] Start: 11-12-2019 Education 21 [facility] Start: 02-04-2020 End: 05-25-2022 Tobacco Comment Resumed short period. Quit for good 05/2016. [facility] Start: 1955 Sex Assigned At Female [facility] Start: 10-04-2021 End: 05-03-2022 Exposure to SARS-CoV-2 (event) Not sure [facility] Start: 11-28-2022 End: 06-02-2023 Tobacco smoking status NHIS Unknown if ever smoked [facility] Start: 04-22-2020 None [facility] Start: 04-27-2021 Homeless [facility] Start: 04-27-2021 Cigarettes [facility] Start: 11-04-2022 End: 02-11-2025 Social connection and isolation panel [facility] Start: 03-22-2021 End: 04-21-2021 Do you belong to any clubs or organizations such as mormon groups, unions, fraHightail or athletic groups, or school groups? Yes [facility] Are you now , , , , never or living with a partner? [facility] How often to you hav e a drink containing alcohol? Never [facility] Start: 06-04-2012 How many standard drinks containing alcohol do you have on a typical day? Patient does not drink [facility] How hard is it for y ou to pay for the very basics like food, housing, medical care, and heating Not very hard [facility] Do you feel stress - tense, restless, nervous, or anxious, or unable to sleep at night because your mind is troubled all the time - these days [OSQ] Only a little [facility] (I/We) worried wheth er (my/our) food would run out before (I/we) got money to buy more. Never true [facility] In the past 12 month s, was there a time when you were not able to pay the mortgage or rent on time? No [facility] Start: 03-31-2020 Gender identity Identifies as female gender (finding) [facility] Start: 09-29-2020 Sexual orientation Heterosexual (finding) [facility] How many standard dr inks containing alcohol do you have on a typical day? 1 or 2 [facility] Start: 1955 Sex Assigned At Not on file [email or web address] How hard is it for y ou to pay for the very basics like food, housing, medical care, and heating Somewhat hard [facility] Start: 09-17-2024 Sex Female (finding) [facility] Start: 02-14-2025 Alcoholic beverage intake Lifetime non-drinker (finding) [facility] Medical Equipment Procedure Code Equipment Code Equipment Origin al Text Equipment Identifier Dates EGD, with monitored anesthesia care [id number] FDA Start: 06-09-2023 Creation, AV fistula [id number] FDA Start: 03-13-2024 Creation, AV fistula [id number] FDA Start: 03-13-2024 Catheter Glidepa th 14.5fr Straight Polyurethane 24cm 19cm Hemodialysis Kit - [id number] Start: 08-05-2023 Catheter Glidepa th 14.5fr Straight Polyurethane 24cm 19cm Hemodialysis Kit - [id number] Start: 08-18-2023 Goals Date Patient Goal Desired Activity /State Functional Status Date Assessment Result Facility 08-10-2024 Functional status Ambulates;Beds frances Commode [facility] Work Phone: 07-27-2024 Functional status Chair [facility] Work Phone: 07-27-2024 Functional status With Assist of 1 [facility] Work Phone: 07-11-2024 Functional status Ambulates;Chair [facility] Work Phone: 08-19-2023 Are you deaf, or do you have serious difficulty hearing No 08/19/2023 12:11 PM Ria Brown, RN No [facility] 08-19-2023 Are you blind, or do you have serious difficulty seeing, even when wearing glasses No 08/19/2023 12:11 PM Ria Brown RN No [facility] 08-19-2023 Do you have serious difficulty walking or climbing stairs Yes 08/19/2023 12:11 PM Ria Brown RN Yes [facility] 08-19-2023 Do you have difficul ty dressing or bathing Yes 08/19/2023 12:11 PM Ria Brown RN Yes [facility] 08-19-2023 Because of a physica l, mental, or emotional condition, do you have difficulty doing errands alone such as visiting a physician's office or shopping Yes 08/19/2023 12:11 PM Ria Brown RN Yes [facility] 07-09-2023 Functional status Ambulates;Beds frances [employer]mode [facility] Work Phone: 06-23-2023 Functional status Ambulates [facility] Work Phone: 06-16-2023 Functional status Chair [facility] Work Phone: 06-06-2023 Functional status Chair [facility] Work Phone: 12-03-2022 Functional status Ambulates;Vásquez le Feet;Chair [facility] Work Phone: Mental Status Date Assessment Result Facility 04-21-2025 Cognitive function Level Of Cons ciousness Awake [facility] Work Phone: 04-13-2025 Cognitive function Awake [facility] Work Phone: 02-09-2025 Cognitive function Level Of Cons ciousness Awake;Alert;Appropriate;Fol lows Commands [facility] Work Phone: 10-31-2024 Cognitive function Voice/Name [facility] Work Phone: 08-10-2024 Cognitive function Voice/Name [facility] Work Phone: 07-27-2024 Cognitive function Voice/Name [facility] Work Phone: 07-11-2024 Cognitive function Voice/Name [facility] Work Phone: 06-05-2024 Cognitive function Awake [facility] Work Phone: 06-05-2024 Cognitive function Voice/Name [facility] Work Phone: 09-01-2023 Cognitive function Awake;Alert;A ppropriate;Fol lows Commands [facility] Work Phone: 08-19-2023 Because of a physica l, mental, or emotional condition, do you have serious difficulty concentrating, remembering, or making decisions No 08/19/2023 12:11 PM Ria Brown RN No [facility] 07-09-2023 Cognitive function Voice/Name [facility] Work Phone: 07-07-2023 Cognitive function Awake;Alert;Appropriat e [facility] Work Phone: 06-23-2023 Cognitive function Voice/Name [facility] Work Phone: 06-20-2023 Cognitive function Voice/Name [facility] Work Phone: 06-16-2023 Cognitive function Voice/Name [facility] Work Phone: 06-15-2023 Cognitive function [facility]ate;[facility] Work Phone: 06-06-2023 Cognitive function Appropriate;C ooperative;Anx ious [facility] Work Phone: 12-03-2022 Cognitive function Appropriate;Cooperati e [facility] Work Phone: 11-30-2022 Cognitive function Level Of Cons ciousness Awake;Alert;Appropriate;Fol lows Commands [facility] Work Phone: 11-28-2022 Cognitive function Voice/Name [facility] Work Phone: Clinical Notes 08-15-2015 to 04-21-2025 Note Date & Type Note Facility 04-21-2025 Discharge summary [facility] 04-21-2025 Radiology Diagnostic study note [facility] Imaging Services [address] [place] [address] Chest 1 View (Portable) MR#: [id number] Acct: [id number] Name: SNEHA CARDENAS Rep #: [id number] : 1955 F 69 From: Ez Garcia MD PCP: Dr. Julio Draper MD Status: R EG ER Study:Chest 1 View (Portable) Date of Exam: 04/21/25 Exam# [id number] Ordering Dr: Tejas Nichols DO PROCEDURE: CHEST 1 VIEW (PORTABLE) 04/21/2025 REASON FOR EXAM: COUGH, SOB TECHNIQUE: Frontal view of the chest. FINDINGS: No significant interval change. Stable chronic peribronchial changes are noted,unchanged from the previous study. No airspace consolidation or pleural effusion. Stable appearance of the cardiac silhouette. Incompletely imaged dextroconvex scoliotic curvature of the lower thoracic and visualized upper lumbar spine, unchanged. Total right shoulder arthroplasty, unchanged. RAD/Chest 1 View (Portable) IMPRESSION: As above. Reading Location: [id number] CC: Dr. Tejas Miller DO; Dr. Julio Draper MD ~ Offset Plate Maker: Signed [facility] 04-21-2025 Note HNO ID: [id number] Author: JUNIOR GARDUNO MD Service: ? Author Type: Physician Type: Progress Notes Filed: 04/21/2025 14:32 Note Text: Pt with a hx of ESRD on dialysis now feels she is having kidney pain also she is having dyspnea hx of COPD vitals reveals an o2 sat of 88% pt advised to go to the ED for eval of her complaints due to UC not able to do blood work in room will drive pt over NO CHARGE FOR VISIT [facility] 04-21-2025 Discharge summary Note Date/Time April 21, 2025 7:32pm [facility] Medical Records Department [address] [place] [address] Emergency Department Summary 04/21/25 MR#: [id number] Acct: [id number] Name: SNEHA CARDENAS Rep #:[id number] : 1955 69 From: Tejas baca DO PCP: Dr. Julio Draper MD Status:R EG ER Location: ED HPI History of Present Illness Chief Complaint: General Illness Narrative Narrative: Chief complaint and HPI: 69-year-old female with past medical history of ESRD onHD, COPD, HLD, CAD, chronic hypoxia on 3 to 4 L nasal cannula presents for evaluation of fever, cough, shortness of breath. Patient states she received dialysis on Tuesday. She states shortly after leaving she developed congestion and sore throat. States she has now been having a productive cough with green mucus. Endorses mild shortness of breath and intermittent fever. States she has been taking Tylenol for the fever. She denies any headache, chest pain, abdominal pain, nausea, vomiting, diarrhea, dysuria. Review of systems: See HPI Medications: As listed on the chart Allergies: As listed on the chart PFSH: Per chart Vital signs: As listed on the chart. Reviewed. Physical exam: Gen: A&O x3, NAD Head: Normocephalic, atraumatic Eyes: No sclera icterus, conjunctiva clear ENT: TMs clear BL, moist mucous membranes, posterior oropharynx mildly erythematous, uvula midline, tonsils not enlarged, no tonsillar exudates Neck: Trachea midline, No JVD, Full ROM, No meningismus CV: RRR, no murmurs, no peripheral edema Resp: Lungs CTA BL, no w/r/c, + cough GI: Abd soft, non-distended, non-tender, no r/r/g Musc: Moves all extremities , no deformity Skin: Warm, dry, no rash Neuro: Alert, oriented, grossly intact, sensation intact Psych: Cooperative, appropriate mood and affect [facility] Medical History End stage renal disease on [...] History acid 0.8 mg tablet (Galina-Jose Elias) acetaminophen 650 mg 650 mg PO Q6H PRN pain 07/2310/31/24 History tablet,extended release (8 Hour Pain Reliever) ipratropium 0.5 mg-albuterol 3 mg 3 ml continuous nebu lization Q6H 08/06/24 10/30/24 History (2.5 mg base)/3 mL nebulization PRN PRN wheezing soln pantoprazole 40 mg tablet,delayed 40 mg PO DAILY 08/0610/30/24 History release alendronate 70 mg tablet 70 mg PO QWEEK 10/31/2410/03 History calcium acetate(phosphat bind) 667 667 mg PO TID 10/3110/30/24 History mg capsule fluticasone fur. 200 mcg-umeclid 1 ea inhalation DAILY 10/31/24 10/30/24 History 62.5 mcg-vilant 25 mcg inhalat.powder (Trelegy Ellipta) ferrous sulfate 325 mg (65 mg 325 mg PO QDAY 11/01/24 Unknown History iron) tablet,delayed release ergocalciferol (vitamin D2) 1,250 1,250 mcg PO QWEEK 0 01/24/25 Unknown History mcg (50,000 unit) capsule sucralfate 1 gram tablet 1 g PO DAILY PRN GI 01/24/25 Unknown History hydrocodone-acetaminophen 5-325mg 1 tab PO Q6H PRN PRN Pain 3 days 02/09/25 Unknown Rx 5mg-325mg #10 TABLETS benzonatate 100 mg capsule 100 mg PO TID PRN cough 5 d ays #15 04/21/25 Unknown Rx caps Allergy/AdvReac Type Severity Reaction Status Date / Time cephalexin monohydrate (From Allergy Chest Verified 04/21/25 14:38 Keflex) tightness vancomycin AdvReac Mild Itching Verified 04/21/25 14:38 Family History Other Adopted Surgical History Hx [...] Yes Type: coffee Number of servings: 1 EXAM Physical Exam Const Vital Signs: 04/21/25 14:36 04/21/25 14:38 04/21/25 16:36 Temperature 99.4 F H 99.4 F H Temperature Source Oral Oral Pulse Rate 92 96 Respiratory Rate 18 18 Respiratory Effort Respiratory Pattern Blood Pressure 151/61 H 151/61 H Blood Pressure Mean 91 91 Pulse Ox 89 88 99 Oxygen Delivery Method Nasal Cannula Nasal Cannula Nasal Cannula Oxygen Flow Rate (L/min) 4 4 3 04/21/25 16:36 04/21/25 16:37 04/21/25 16:37 Temperature Temperature Source Pulse Rate 85 Respiratory Rate 16 Respiratory Effort Short of Breath Respiratory Pattern Normal Blood Pressure Blood Pressure Mean Pulse Ox Oxygen Delivery Method Nasal Cannula Oxygen Flow Rate (L/min) 04/21/25 17:14 04/21/25 17:16 04/21/25 18:00 Temperature 98.4 F Temperature Source Oral Pulse Rate 84 83 Respiratory Rate 25 H 19 H Respiratory Effort Respiratory Pattern Blood Pressure 126/55 H 128/60 H Blood Pressure Mean 78 82 Pulse Ox 99 99 99 Oxygen Delivery Method Nasal Cannula Nasal Cannula Room Air Oxygen Flow Rate (L/min) 3 3 MDM MDM MDM Narrative Medical decision making narrative: 69-year-old female with past medical history of ESRD on HD, COPD, HLD, CAD, chronic hypoxia on 3 to 4 L nasal cannula presents for evaluation of fever, cough, shortness of breath. Patient states she received dialysis on Tuesday. She states shortly after leaving she developed congestion and sore throat. States she has now been having a productive cough with green mucus. Endorses mild shortness of breath and intermittent fever. States she has been taking Tylenol for the fever. Patient had workup started in triage per protocol. DuoNeb ordered for symptoms. Laboratory workup resulted by the time I saw the patient. CBC without leukocytosis. Patient has baseline anemia. Platelets unremarkable. BMP shows baseline ESRD with BUN of 36 and creatinine of 3.11. Troponin 65 patient not endorsing any chest pain. Previous troponin 52. I suspect that this is likely her baseline given her ESRD. Will give delta. No EKG changes. Differential diagnosis includes but is not limited to viral illness, influenza, COVID, pneumonia. Patient positive for COVID-19 infection. Patient's symptoms are secondary to COVID infection. She is on her home oxygen. Vitals are stable. Recommend Tylenol as needed for fever. Dwmd-ifm-zoiwdab symptom control. Recommended Mucinex and will prescribed prescription for Tessalon Perles. Follow-up with primary care physician. Return back to ED symptoms change or worsen. Her and her were updated of all results and the plan. They confirmed understanding. Patient stable to discharge home. EKG: Interpreted by me/EM physician: EKG shows normal sinus rhythm without acute ischemic changes. Heart rate 86 Diagnostic: Interpreted by me/EM physician: Chest x-ray without pneumonia, effusion, cardiomegaly, pneumothorax. Patient has chronic lung changes. Radiology in agreement. Impression Impression: 1. COVID-19 infection 2. ESRD on HD Lab Data Labs: Laboratory Results - last 24 hr 04/21/25 04/21/25 14:55 17:10 WBC 10.8 RBC 3.52 L Hgb 10.5 L Hct 32.8 L MCV 93.2 MCH 29.8 MCHC 32.0 RDW Std Deviation 46.5 H RDW Coeff of Laly 13.6 Plt Count 211 MPV 10.1 Immature Gran % (Auto) 0.700 Neut % (Auto) 74.4 H Lymph % (Auto) 10.5 L [place] % (Auto) 11.3 H Eos % (Auto) 2.6 Baso % (Auto) 0.5 Absolute Neuts (auto) 8.0 H Absolute Lymphs (auto) 1.13 Nucleated RBC % 0 Sodium 140 Potassium 4.2 Chloride 102 Carbon Dioxide 26.9 Anion Gap 11 BUN 36 H Creatinine 3.11 H Est GFR (MDRD) Non-Af 16 L BUN/Creatinine Ratio 11.4 Glucose 97 Calcium 9.4 Troponin T High Sens 65 H* D Troponin T Hi Sens 2 Hr 62 H* Radiography Diagnostic Testing: Clinical Impression(s) from Imaging Studies Chest X-Ray 04/21/25 14:38 IMPRESSION: As above. Reading Location: [id number] Discharge Plan Triage Chief Complaint: General Illness ED Provider: Tejas Miller Dx/Rx/DC Orders Clinical Impression: COVID-19 virus infection Instructions: Coronavirus Disease 2019 (COVID-19): Overview, COVID-19 and the Flu: What's the Difference? Prescriptions: New benzonatate 100 mg capsule 100 mg PO TID PRN (Reason: cough) 5 Days Qty: 15 0RF No Action nitroglycerin 0.4 mg tablet, sublingual 0.4 mg sublingual Q5-15M PRN (Reason: chest pain) Rx Instructions: do not exceed 3 doses per episode isosorbide mononitrate 60 mg tablet extended release 24 hr 60 mg PO DAILY atorvastatin 40 mg tablet 40 mg PO QHS buspirone 10 mg tablet 10 mg PO QHS ferrous sulfate 325 mg (65 mg iron) tablet,delayed release (DR/EC) 325 mg PO QDAY ergocalciferol (vitamin D2) 1,250 mcg (50,000 unit) capsule 1,250 mcg PO QWEEK albuterol sulfate [Ventolin HFA] 1 INHALER inhaler 2 puff inhalation Q4H PRN PRN (Reason: Shortness Of Breath) Patient Comments: shortness of breath montelukast 10 MG tablet 10 mg PO QHS fluticasone propionate 50 mcg/actuation spray,suspension 2 spray INTRANASAL QHS Patient Comments: Use 1 [place] in each nostril once daily. Galina-Jose Elias 0.8 mg tablet 1 tab PO DAILY sucralfate 1 gram tablet 1 g PO DAILY PRN (Reason: GI) ipratropium-albuterol 0.5 mg-3 mg(2.5 mg base)/3 mL solution for nebulization 3 ml continuous nebulization Q6H PRN PRN (Reason: wheezing) pantoprazole 40 mg tablet,delayed release (DR/EC) 40 mg PO DAILY acetaminophen [8 Hour Pain Reliever] 650 mg tablet extended release 650 mg PO Q6H PRN (Reason: pain) calcium acetate(phosphat bind) 667 mg capsule 667 mg PO TID alendronate 70 mg tablet 70 mg PO QWEEK Trelegy Ellipta 200-62.5-25 mcg blister with device 1 ea inhalation DAILY hydrocodone-acetaminophen 5-325 mg tablet 1 tab PO Q6H PRN PRN (Reason: Pain) 3 Days Qty: 10 0RF Primary Care Provider: Julio Draper Referrals: Julio Draper MD [Primary Care Provider, Internal Medicine] - 3-5 Days Activity Restrictions/Additional Instructions: Follow-up with primary care physician. Return back to ED symptoms change or worsen. Recommend rooy-qdx-qoewrxe Mucinex. Tessalon Perles as needed for cough as well. Tylenol as needed for fevers. Print Language: Malaysian Disposition Disposition: Home, Self Care What to do if you have Problems For any increased pain, shortness of breath, bleeding, nausea or vomiting, chestpain, or any unexpected problems, contact your Primary Care Provider. Call [facility] ([phone]) or report to the closest Emergency Room. Call 911 if necessary. 04/21/25 1832 <Electronically signed by Tejas Miller DO> Cosigner Signature (if applicable): CC: Dr. Julio Draper MD ~ Signed [facility] Work Phone: [phone] NoteHNO ID: [id number] Author: JULIO DRAPER MD Service: ? Author Type: Physician Type: Progress Notes Filed: 04/18/2025 10:58 Note Text: Subjective Sneha Cardenas is a 69 year old female here with Cash. Patient presents with: ER F/U Sneha had a sharp pain across her chest this weekend, aggravated by bending over. She went to the ER 04/14 and cardiac and pulmonary work up were negative. She was noted to have chest wall tenderness. Chest pain was better. She had been more active with chores at home. She declined vaccines. Her lipids needed updating, and she was fasting today. Mammogram was not yet done. Review of Systems Constitutional: Negative for chills and fever. Respiratory: Negative for cough and shortness of breath. Cardiovascular: Negative for palpitations and leg swelling. Gastrointestinal: Negative. ACTIVE [...] (Hcc) Coronary Artery Disease Anxiety About Health Vitamin D Deficiency Current Outpatient Medications Medication Sig dgrohryjqiv-awsapidkl-wblndmxh (TRELEGY ELLIPTA) 200-62.5-25 mcg inhalation powder Inhale 1 puff as instructed once daily. atorvastatin (LIPITOR) 40 mg tablet Take 1 tablet by mouth daily at bedtime. For cholesterol. busPIRone (BUSPAR) 10 mg tablet Take 1 tablet by mouth daily at bedtime. predniSONE (DELTASONE) 10 mg tablet TAKE BY MOUTH 4 TABLETS DAILY FOR 2 DAYS, THEN 3 TABLETS DAILY FOR 2 DAYS, THEN 2 TABLETS DAILY FOR 2 DAYS, THEN 1 TABLET DAILY FOR 2 DAYS. ergocalciferol 50,000 unit capsule (VITAMIN D2, DRISDOL) Take 1 capsule by mouth one time a week. ipratropium-albuterol (DUONEB) 0.5 mg-3 mg(2.5 mg base)/3 mL nebu Inhale 3 mL as instructed every 4 hours as needed for wheezing/shortness of breath. fluticasone (FLONASE) 50 mcg/actuation nasal spray Use 2 sprays in each nostril once daily. Rinse mouth after use. calcium acetate,phosphat bind, (PHOSLO) 667 mg capsule Take 667 mg by mouth three times a day. isosorbide mononitrate ER (IMDUR) [...] hours as needed for wheezing/shortness of breath. OXYGEN, HOME THERAPY, Inhale 3 L/min as instructed as directed. 3L NC continuous, up to 4L with exertion acetaminophen (TYLENOL) 325 mg tablet Take 650 mg by mouth every 6 hours as needed. nitroglycerin sublingual (NITROSTAT) 0.4 mg SL tablet Dissolve 0.4 mg under the tongue every 5 minutes as needed for chest pain. No current facility-administered medications for this visit. Objective BP 132/72 (BP Site: Right Arm, BP Position: Sitting, BP Cuff Size: Large Adult) Pulse 67 Wt 61.1 kg (134 lb 11.2 oz) SpO2 96% BMI 23.12 kg/m? Physical Exam Constitutional: General: She is not in acute distress. Appearance: She is not ill-appearing. Comments: On wheelchair, on portable O2. Cardiovascular: Rate and Rhythm: Normal rate and regular rhythm. Heart sounds: S1 normal and S2 normal. No murmur heard. No friction rub. No gallop. Pulmonary: Effort: No respiratory distress. Breath sounds: Examination of the right-lower field reveals rales. Rales present. No wheezing. Chest: Chest wall: Tenderness (anterior chest, especially sternum) present. Musculoskeletal: Right lower leg: No edema. Left lower leg: No edema. Neurological: Mental Status: She is alert. ASSESSMENT/PLAN: 1. Other chest pain - ICD9: 786.59, ICD10: R07.89 (primary diagnosis) Atypical chest pain, symptoms are not consistent with cardiac ischemia due to nonexertional nature of symptom possible etiology include - Use topical analgesics to the chest as needed. 2. Coronary artery disease involving [place] coronary artery of [place] heart, unspecified whether angina present - ICD9: 414.01, ICD10: I25.10 - Stable. - ISOSORBIDE MONONITRATE ER 60 MG TABLET,EXTENDED RELEASE 24 HR 3. Environmental allergies - ICD9: V15.09, ICD10: Z91.09 - Controlled. - MONTELUKAST 10 MG TABLET 4. Hyperlipidemia, unspecified hyperlipidemia type - ICD9: 272.4, ICD10: E78.5 - Control undetermined, due for labs Julio Draper, [facility]10-12-2025 Discharge summary [facility] Medical Records Department [address] [place] [id number] Emergency Department Summary 04/14/25 MR#: [id number] Acct: [id number] Name: SNEHA CARDENAS Rep #:[id number] : 1955 69 From: Hoang Foster DO PCP: Dr. Julio Draper MD Status:D EP ER Location: ED HPI History of Present Illness Chief Complaint: Chest Pain Informant: patient and spouse/S.O. Narrative Narrative: Patient is a 69-year-old female with past medical history of end-stage renal disease on dialysis aswell as hypertension proximal atrial fibrillation and COPD. She states she will experience chest discomfort frequently and is on Imdur. She states she awoke this morning and felt midsternal chest pain and therefore took her Imdur and it resolved. However this evening the chest pain returned and this time felt like a jolt. She states the pain was more intense and was not the typical pain she is used to. She states that the pain did improve aftershe took a home nitro and aspirin but as the painwas different from her recurrent or chronic symptoms she presents for evaluation. [facility] Medical History End stage renal disease on [...] History acid 0.8 mg tablet (Galina-Jose Elias) acetaminophen 650 mg 650 mg PO Q6H PRN pain 07/2310/31/24 History tablet,extended release (8 Hour Pain Reliever) ipratropium 0.5 mg-albuterol 3 mg 3 ml continuous nebu lization Q6H 08/06/24 10/30/24 History (2.5 mg base)/3 mL nebulization PRN PRN wheezing soln pantoprazole 40 mg tablet,delayed 40 mg PO DAILY 08/0610/30/24 History release alendronate 70 mg tablet 70 mg PO QWEEK 10/31/2410/03 History calcium acetate(phosphat bind) 667 667 mg PO TID 10/3110/30/24 History mg capsule fluticasone fur. 200 mcg-umeclid 1 ea inhalation DAILY 10/31/24 10/30/24 History 62.5 mcg-vilant 25 mcg inhalat.powder (Trelegy Ellipta) ferrous sulfate 325 mg (65 mg 325 mg PO QDAY 11/01/24 Unknown History iron) tablet,delayed release ergocalciferol (vitamin D2) 1,250 1,250 mcg PO QWEEK 0 01/24/25 Unknown History mcg (50,000 unit) capsule sucralfate 1 gram tablet 1 g PO DAILY PRN GI 01/24/25 Unknown History hydrocodone-acetaminophen 5-325mg 1 tab PO Q6H PRN PRN Pain 3 days 02/09/25 Unknown Rx 5mg-325mg #10 TABLETS Allergy/AdvReac Type Severity Reaction Status Date / Time cephalexin monohydrate (From Allergy Chest Verified 04/13/25 21:53 Keflex) tightness vancomycin AdvReac Mild Itching Verified 04/13/25 21:53 Family History Other Adopted Surgical History Hx [...] Type: coffee Number of servings: 1 ROS ROS ED Constitutional Constitutional ED: Denies chills or fever(s) Eyes Eyes: Denies blurry vision or change in vision ENT ENT ED: Denies sore throat Cardiovascular Cardiovascular: Reports chest pain; Denies palpitations or racing heartbeat Respiratory/Chest Respiratory/Chest: Reports dyspnea and other Details: Patient reports shortness of breath is chronic in nature ; Denies cough Gastrointestinal Gastrointestinal: Denies abdominal pain, diarrhea, nausea or vomiting Musculoskeletal Musculoskeletal: Denies back pain Integumentary Denies rash Neurologic Neurologic: Denies headache(s) EXAM Physical Exam Const Vital Signs: 04/13/25 21:50 04/13/25 22:00 04/13/25 22:50 Temperature 99 F Temperature Source Oral Pulse Rate 94 88 Respiratory Rate 16 18 Respiratory Effort Normal Blood Pressure 159/70 H 111/57 L Blood Pressure Mean 99 75 Pulse Ox 98 98 Oxygen Delivery Method Room Air Nasal Cannula Oxygen Flow Rate (L/min) 3 04/13/25 23:00 04/14/25 00:00 04/14/25 00:17 Temperature 98.9 F Temperature Source Pulse Rate 90 87 86 Respiratory Rate 18 18 18 Respiratory Effort Blood Pressure 128/57 H 116/56 L 134/64 H Blood Pressure Mean 80 76 87 Pulse Ox 91 97 98 Oxygen Delivery Method Nasal Cannula Oxygen Flow Rate (L/min) 3 Positive well nourished and well developed General Appearance ED: well developed; Negative for pallor HEENT HEENT Narrative: Normocephalic atraumatic Eyes PERRL and EOMs intact bilaterally General Eye ED: Negative for scleral icterus Neck supple Chest Wall Chest Narrative: No bony deformity or subcutaneous emphysema noted There is reproducible right anterior sternal chest pain with palpation but the patient states is the same pain she has been experiencing No overlying soft tissue changes to suggest trauma or infection Resp normal respiratory effort Resp Narrative: Breath sounds are diminished throughout with rhonchi and faint expiratory wheezing consistent history of COPD but no signs of respiratory distress Cardio regular rate and regular rhythm Rate: other Other Details: Heart is regular rate and rhythm with occasional ectopic beat noted GI normal to inspection, nondistended, normoactive bowel sounds, non-tender, non- distended and no masses GI Narrative: No voluntary guarding or rigidity or pulsatile mass Auscultation: normoactive bowel sounds Palpation: soft Extremity normal to inspection Neuro oriented x3, CN's II-XII intact bilaterally and no sensory deficits noted Sensorium / Orientation: alert Motor Exam: strength 5/5 throughout Psych mental status grossly normal Skin no rashes or lesions noted General Skin Exam: Negative for jaundice or pallor MDM MDM MDM Narrative Medical decision making narrative: Patient arrived to the ER mildly hypertensive but has a past medical history of this. She has knowncoronary artery disease and takes nitro secondary to recurrent chest discomfort. However she reported her chest pain was different from her chronic in order to ensure this is not acute coronary syndrome versus cardiac dysrhythmia versus lung pathology such as pneumonia or pneumothorax I did elect to perform basic laboratory studies with chest x-ray. The patient's initial and delta troponin were 52 and chart review reveals that this is near her baseline value and therefore without elevation or significant derangement from her baseline I have low concern for ACS. Her EKG also showed no sign of c ardiac dysrhythmia or ischemic finding. Chest x-ray revealed no lung pathologysuch as pneumonia or pneumothorax. Her creatinine is elevated consistent with end-stage renal disease on dialysis but is near her baseline and there are no clinically significant electrolyte abnormality. She also reports s he has had spontaneous improvement of symptoms. Therefore at this time without cardiac dysrhythmia or elevation to her troponin or lung pathology noted I do not feel need for further intervention andshe is otherwise safe for discharge History & Record Review Discussion w/independent historian: Patient and Significant other Lab Data Attestation: I reviewed the patient's lab results. Labs: Laboratory Results - last 24 hr 04/13/25 04/13/25 21:20 23:20 WBC 11.7 H RBC 3.81 L Hgb 11.4 L Hct 36.0 L MCV 94.5 MCH 29.9 MCHC 31.7 L RDW Std Deviation 47.2 H RDW Coeff of Laly 13.5 Plt Count 223 MPV 11.0 Immature Gran % (Auto) 0.200 Neut % (Auto) 63.4 Lymph % (Auto) 21.5 [place] % (Auto) 10.9 H Eos % (Auto) 3.3 Baso % (Auto) 0.7 Absolute Neuts (auto) 7.4 Absolute Lymphs (auto) 2.51 Nucleated RBC % 0 Sodium 141 Potassium 3.7 Chloride 99 Carbon Dioxide 28.5 Anion Gap 13 BUN 37 H Creatinine 3.46 H Estim Creat Clear Calc 14.63 L Est GFR (MDRD) Non-Af 14 L BUN/Creatinine Ratio 10.6 Glucose 109 H Calcium 9.5 Phosphorus 4.3 Magnesium 2.2 Troponin T High Sens 52 H D Troponin T Hi Sens 2 Hr 52 H Radiography Diagnostic Testing: Clinical Impression(s) from Imaging Studies Chest X-Ray 04/13/25 22:35 IMPRESSION: No Acute Findings. Reading Location: [facility] Chest x-ray as interpreted by the emergency medicine physician reveals no acute infiltrate pneumothorax or pleural effusion Discharge Plan Triage Chief Complaint: Chest Pain ED Provider: Hoang Foster Dx/Rx/DC Orders Clinical Impression: Nonspecific chest pain, ESRD (end stage renal disease) on dialysis, Essential hypertension, Hyperlipidemia, COPD (chronic obstructive pulmonary disease) Instructions: ED Chest Pain, Uncertain Cause Prescriptions: No Action nitroglycerin 0.4 mg tablet, sublingual 0.4 mg sublingual Q5-15M PRN (Reason: chest pain) Rx Instructions: do not exceed 3 doses per episode isosorbide mononitrate 60 mg tablet extended release 24 hr 60 mg PO DAILY atorvastatin 40 mg tablet 40 mg PO QHS buspirone 10 mg tablet 10 mg PO QHS ferrous sulfate 325 mg (65 mg iron) tablet,delayed release (DR/EC) 325 mg PO QDAY ergocalciferol (vitamin D2) 1,250 mcg (50,000 unit) capsule 1,250 mcg PO QWEEK albuterol sulfate [Ventolin HFA] 1 INHALER inhaler 2 puff inhalation Q4H PRN PRN (Reason: Shortness Of Breath) Patient Comments: shortness of breath montelukast 10 MG tablet 10 mg PO QHS fluticasone propionate 50 mcg/actuation spray,suspension 2 spray INTRANASAL QHS Patient Comments: Use 1 [place] in each nostril once daily. Galina-Jose Elias 0.8 mg tablet 1 tab PO DAILY sucralfate 1 gram tablet 1 g PO DAILY PRN (Reason: GI) ipratropium-albuterol 0.5 mg-3 mg(2.5 mg base)/3 mL solution for nebulization 3 ml continuous nebulization Q6H PRN PRN (Reason: wheezing) pantoprazole 40 mg tablet,delayed release (DR/EC) 40 mg PO DAILY acetaminophen [8 Hour Pain Reliever] 650 mg tablet extended release 650 mg PO Q6H PRN (Reason: pain) calcium acetate(phosphat bind) 667 mg capsule 667 mg PO TID alendronate 70 mg tablet 70 mg PO QWEEK Trelegy Ellipta 200-62.5-25 mcg blister with device 1 ea inhalation DAILY hydrocodone-acetaminophen 5-325 mg tablet 1 tab PO Q6H PRN PRN (Reason: Pain) 3 Days Qty: 10 0RF Primary Care Provider: Julio Draper Referrals: Julio Draper MD [Primary Care Provider, Internal Medicine] Activity Restrictions/Additional Instructions: Your workup today revealed no sign of active heart damage or cardiac dysrhythmia. 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 Call [facility] ([phone]) or report tothe closest Emergency Room. Call 911 if necessary. 04/14/25 0152 Cosigner Signature (if applicable): CC: Dr. Julio Draper MD ~ Signed [facility]10-11-2025 Radiology Diagnostic study note [facility] Imaging Services [address] [place] [address] Chest 1 View (Portable) MR#: [id number] Acct: [id number] Name: SNEHA CARDENAS Rep #: [id number] : 1955 F 69 From: Milton Segovia MD PCP: Dr. Julio Draper MD Status: R EG ER Study:Chest 1 View (Portable) Date of Exam: 04/13/25 Exam# [id number] Ordering Dr: Neelima Foster DO PROCEDURE: CHEST 1 VIEW (PORTABLE) 04/13/2025 REASON FOR EXAM: CHEST PAIN TECHNIQUE: Frontal view of the chest. COMPARISON: 02/09/2025 FINDINGS: Hardware: Right shoulder arthroplasty. Heart: The heart size is normal. Lungs: The lungs are clear. No pneumothorax or pleural effusion. Bones: The bones are unremarkable. RAD/Chest 1 View (Portable) IMPRESSION: No Acute Findings. Reading Location: [facility] CC: Dr. Julio Draper MD; Hoang Foster DO ~ Offset Plate Maker: Signed [facility]10-02-2025 NoteHNO ID: [id number] Author: MAGALI NIEVES MD Service: ? Author Type: Physician Type: Progress Notes Filed: 04/04/2025 16:42 Note Text: . Respiratory [place] Note Patient name: Sneha Cardenas PCP: Julio Draper MD CC: COPD HPI: Sneha Cardenas 69 year old female former [id number] smoker, quitting in 2015 with PMH significant for HTN, benign tremors, COVID-pneumonia in 2020, chronic hypoxemic respiratory failure, AF not on AC due to prior GI bleed, severe COPD/emphysema, pulmonary nodules with right upper lobe ground glass opacity suspicious for adenocarcinoma in situ, history of severe pneumonia with parapneumonic effusion requiring chest tube placement, end-stage renal disease on dialysis. She has been very slow to recover from her severe infection and renal failure. Current therapy consists of Trelegy Ellipta and albuterol. She has been trying to increase her endurance. Main symptom is dyspnea with exertion. She denies wheezing, chronic cough or chest pain. Last seen in the emergency department in February for evaluation of cough and chest pain. No pneumonia. She was concerned about arrhythmia. DME: [employer] 3 to 4 L DATA: Imaging / Diagnostic Studies: DATE OF EXAM: Nov 06 2024 10:16AM [facility] 0541 - CT CHEST WO IVCON / Lung parenchyma and airways: No consolidation. No [...] endotracheal or central endobronchial lesion is identified. IMPRESSION: 1. No new or enlarging pulmonary nodules or thoracic lymphadenopathy. Slightly decreased in size of lateral right upper lobe pulmonary nodule. 2. Stable right upper lobe groundglass nodule, flat on coronal and sagittal image, likely a scarring or atelectasis. 3. Unchanged chronic small bilateral pleural effusions with pleural thickening. CHEST CT 2019 PAST MEDICAL HISTORY Diagnosis Date Age-related osteoporosis without current pathological fracture 08/28/2021 Anemia requiring transfusions 06/15/2023 Antibiotic-associated diarrhea 07/14/2023 Asthma ([facility]) Benign essential tremor Chronic obstructive pulmonary disease ([facility]) 07/25/2012 Chronic respiratory failure with hypoxia ([facility]) 11/05/2022 Coagulation defect, unspecified ([facility]) 08/25/2023 Coronary artery disease 08/19/2023 DDD (degenerative disc disease), cervical 08/15/2015 Empyema ([facility]) 07/09/2023 Environmental allergies Wheezes with hay or dust ESRD (end stage renal disease) ([facility]) Essential tremor 11/02/2007 Benign essential -- started primidone 06/03/09, Dr. Nguyễn Gastrointestinal hemorrhage associated with peptic ulcer 08/02/2023 Hemodialysis catheter malfunction 08/19/2023 History of colon polyps 2009 Tubular adenoma. Hypertension Hypoxemia 05/01/2021 Post Covid pneumonia. Irritable bowel syndrome Lung nodule Migraine headache Improved with primidone Multiple duodenal ulcers 06/30/2023 NSTEMI (non-ST elevated myocardial infarction) ([facility]) 07/20/2023 Parapneumonic effusion Pneumonia due to COVID-19 virus 05/01/2021 Pneumonia due to infectious organism 06/30/2023 Pulmonary emphysema ([facility]) 07/19/2023 Scoliosis Shock, septic ([facility]) 07/11/2023 Snoring Tobacco use disorder Quit 03/04/2015. Unspecified gastritis and gastroduodenitis without mention of hemorrhage 02/09/2010 Small ulcer on EGD 2009 Upper GI bleed 02/09/2010 ALLERGIES Allergen Reactions Keflex [Cephalexin] Intolerance Tachycardia, palpitations. Vancomycin Hives obdaxakuqwu-mqwirixvk-eandalfj (TRELEGY ELLIPTA) 200-62.5-25 mcg inhalation powder Inhale 1 puff as instructed once daily. busPIRone (BUSPAR) 10 mg tablet Take 1 tablet by mouth daily at bedtime. predniSONE (DELTASONE) 10 mg tablet TAKE BY MOUTH 4 TABLETS DAILY FOR 2 DAYS, THEN 3 TABLETS DAILY FOR 2 DAYS, THEN 2 TABLETS DAILY FOR 2 DAYS, THEN 1 TABLET DAILY FOR 2 DAYS. ergocalciferol 50,000 unit capsule (VITAMIN D2, DRISDOL) Take 1 capsule by mouth one time a week. ipratropium-albuterol (DUONEB) 0.5 mg-3 mg(2.5 mg base)/3 mL nebu Inhale 3 mL as instructed every 4 hours as needed for wheezing/shortness of breath. fluticasone (FLONASE) 50 mcg/actuation nasal spray Use 2 sprays in each nostril once daily. Rinse mouth after use. calcium acetate,phosphat bind, (PHOSLO) (more content not included)...[facility]09-09-2025 Telephone encounter Note* Telephone Encounter - Annette Gonzalez MA - 03/12/2025 3:24 PM EDT Prescription Refill Information The patient has been identified by name and date of : Yes Caregiver verified no other encounters exist for this prescription request: Yes Caregiver confirmed with patient/requestor that no other refills are due, in the near future, with this provider at this time: Yes The last office visit in the department: 11/14/2024 Does the patient have a future office visit with this provider/department: Yes Requested Prescriptions Pending Prescriptions Disp Refills tysjiysufcd-wmlmxoltd-hmpojqxk (TRELEGY ELLIPTA) 200-62.5-25 mcg inhalation powder 60 each 5 Sig: Inhale 1 puff as instructed once daily. Annette Gonzalez MA March 12, 2025 3:24 PM [facility]09-09-2025 Miscellaneous Notes* Telephone Encounter - Annette Gonzalez MA - 03/12/2025 3:24 PM EDT Prescription Refill Information The patient has been identified by name and date of : Yes Caregiver verified no other encounters exist for this prescription request: Yes Caregiver confirmed with patient/requestor that no other refills are due, in the near future, with this provider at this time: Yes The last office visit in the department: 11/14/2024 Does the patient have a future office visit with this provider/department: Yes Requested Prescriptions Pending Prescriptions Disp Refills llrpaeurxfo-gjrjuwrfs-pamxvnfm (TRELEGY ELLIPTA) 200-62.5-25 mcg inhalation powder 60 each 5 Sig: Inhale 1 puff as instructed once daily. Annette Gonzalez MA March 12, 2025 3:24 PM documented in [facility] Instructions* Patient Instructions* Julio Draper MD - 02/14/2025 10:25 AM EDT Screening schedule The following prevention plan is recommended: Mammogram Screening due on 08/26/2022 Medicare Annual Wellness Visit Never done DTaP,Tdap,Td Vaccine(2 - Td or Tdap) due on 04/12/2024 Advance Directive Discussion due on 07/04/2024 LDL Cholesterol due on 08/25/2024 Depression Screening due on 11/10/2024 WHAT YOU CAN DO TO PREVENT FALLS Many falls can be prevented. By making some changes, you can lower your chances of falling. Four things YOU can do to prevent falls for you* and your caregiver 1. Begin a regular exercise program Exercise is one of the most important ways to lower your chances of falling. It makes you stronger and helps you feel better. Exercises that improve balance and coordination (like Rik Chi) are the most helpful. Lack of exercise leads to weakness and increases your chances of falling. Ask your doctor or health care provider about the best type of exercise program for you. 2. Have your health care provider review your medicines Have your doctor or pharmacist review all the medicines you take, even odpe-kla-mgnzppg medicines. As you get older, the way medicines work in your body can change. Some medicines, or combinations of medicines, can make you sleepy or dizzy andcan cause you to fall. 3. Have your vision checked Have your eyes checked by an eye doctor at least once a year. You may be wearing the wrong glasses or have a condition like glaucoma or cataracts that limits your vision. Poor vision can increase your chances of falling. 4. Make your home safer About half of all falls happen at home. To make your home safer: Remove things you can trip over (like papers, books, clothes, and shoes) from stairs and places where you walk. Remove small throw rugs or use double-sided tape to keep the rugs from slipping. Keep items you use often in cabinets you can reach easily without using a step stool. Have grab bars put in next to your toilet and in the tub or shower. Use non-slip mats in the bathtub and on shower floors. Improve the lighting in your home. As you get older, you need brighter lights to see well. Hang light-weight curtains or shades to reduce glare. Have handrails and lights put in on all staircases. Wear shoes both inside and outside the house. Avoid going barefoot or wearing slippers. For more information, contact: Centers for Disease Control and Prevention www.cdc.gov/injury * This information may not apply if you have certain medical conditions. documented in this encounterMem[facility]08-14-2025 NoteHNO ID: [id number] Author: JULIO DRAPER MD Service: ? Author Type: Physician Type: Progress Notes Filed: 02/14/2025 11:40 Note Text: Sneha Cardenas is a 69 year old female here for a Medicare wellness visit. Medicare Health Risk Assessment General Health Fair Exercise: Minutes/Day 0 min Exercise: Days/Week 0 days Alcohol: Daily Use Never Alcohol: Drinks/Day Patient does not drink Alcohol: 6 or more drinks Never Feel off balance Yes Concerns: Teeth/Dentures Yes Concerns: Sexual function No Troubled by feelings Anxious; Stressed; Lonely Frequency: Eating healthy diet Several days ADLs requiring help Grocery shopping; Housework; Bathing; Driving Safety precautions in home/vehicle Yes Smoke, vape, chews tobacco No Difficulty hearing No Difficulty seeing No Current Providers Specialists: I have reviewed specialist-related care of the patient in the medical record. Current care team: Patient Care Team: Julio Draper MD as PCP - General (Internal Medicine) Magali Nieves MD Hershberger, Naz M, RESORT MANAGER.HEAD SAWYER as Continuous Churn Buttermaker (Internal Medicine) Outside specialists seen: Livan Love MD (Vascular Surgery) Alayna Salazar MD (Cardiology) Ferny Lawson MD (Nephrology) Medical/Family history review Reviewed and updated problem list, medical/surgical/family/social history, medications, and allergies. Opioid use review Opioid Medications (last 90 days) No data to display Anxiety/Depression screening PHQ-2 Score: 2 (Lower risk for depression) LORRAINE-7 Score: 7 (Mild Anxiety) Recommendation: no further intervention at this time Cognitive screening Mini Cog Score: 5 Cognitive screening reviewed and No further action needed (score 3-5). Functional Observation Was the patient's Timed Up AND Go test unsteady or >= 12 seconds? No Advance Care Planning Patient was not able to provide a surrogate decision maker or written advance directives Measurements BP 136/76 (BP Site: Left Arm, BP Position: Sitting, BP Cuff Size: Large Adult) Pulse 80 Ht 162.6 cm (5' 4) Wt 63.2 kg (139 lb 5.3 oz) SpO2 95% BMI 23.92 kg/m? Vision Screening: Follows with optometry/ophthalmology Right: 20/200 Left: 20/ 00 Both: 20/70 Assessment/Plan Medicare annual wellness visit, initial (Z00.00) - Counseled on healthy diet and regular exercise - Fall avoidance information provided - Personalized prevention plan provided - Follow up. Right shoulder much better with massage therapy. - Referred for vision deterioration. Last eye exam was years ago. - Anxiety better. Refilled medication per patient use. Dose reduction.[facility]08-14-2025 History of Present illness Narrative* Julio Draper MD - 02/14/2025 10:15 AM EDT Images from the original note were not included. Sneha Cardenas is a 69 year old female here for a Medicare wellness visit. Medicare Health Risk Assessment General Health Fair Exercise: Minutes/Day 0 min Exercise: Days/Week 0 days Alcohol: Daily Use Never Alcohol: Drinks/Day Patient does not drink Alcohol: 6 or more drinks Never Feel off balance Yes Concerns: Teeth/Dentures Yes Concerns: Sexual function No Troubled by feelings Anxious; Stressed; Lonely Frequency: Eating healthy diet Several days ADLs requiring help Grocery shopping; Housework; Bathing; Driving Safety precautions in home/vehicle Yes Smoke, vape, chews tobacco No Difficulty hearing No Difficulty seeing No Current Providers Specialists: I have reviewed specialist-related care of the patient in the medical record. Current care team: Patient Care Team: Julio Draper MD as PCP - General (Internal Medicine) Magali Nieves MD Hershberger, Naz M, RESORT MANAGER.HEAD SAWYER as Continuous Churn Buttermaker (Internal Medicine) Outside specialists seen: Livan Love MD (Vascular Surgery) Alayna Salazar MD (Cardiology) Ferny Lawson MD (Nephrology) Medical/Family history review Reviewed and updated problem list, medical/surgical/family/social history, medications, and allergies. Opioid use review Opioid Medications (last 90 days) No data to display Anxiety/Depression screening PHQ-2 Score: 2 (Lower risk for depression) LORRAINE-7 Score: 7 (Mild Anxiety) Recommendation: no further intervention at this time Cognitive screening Mini Cog Score: 5 Cognitive screening reviewed and No further action needed (score 3-5). Functional Observation Was the patient's Timed Up & Go test unsteady or >= 12 seconds? No Advance Care Planning Patient was not able to provide a surrogate decision maker or written advance directives Measurements BP 136/76 (BP Site: Left Arm, BP Position: Sitting, BP Cuff Size: Large Adult) Pulse 80 Ht 162.6 cm (5' 4) Wt 63.2 kg (139 lb 5.3 oz) SpO2 95% BMI 23.92 kg/m Vision Screening: Follows with optometry/ophthalmology Right: 20/200 Left: 20/ 00 Both: 20/70 Assessment/Plan Medicare annual wellness visit, initial (Z00.00) - Counseled on healthy diet and regular exercise - Fall avoidance information provided - Personalized prevention plan provided - Follow up. Right shoulder much better with massage therapy. - Referred for vision deterioration. Last eye exam was years ago. - Anxiety better. Refilled medication per patient use. Dose reduction. documented in this encounterMemorial [facility]08-[facility] History of Present illness Narrative* Julio Draper MD - 02/11/2025 6:50 PM EDT Subjective Sneha Cardenas is a 69 year old female. Patient presents with: ER F/U: FLANK/RIGHT SHOULDER PAIN She developed right shoulder pain and upper back pain at the end of dialysis 4 days ago. Pain worsened to 10/10 severity by 02/09/25 so she went to the ED where labs, including troponin x 2 were none contributory. Chest xray, Right shoulder xray, and CT of the abdomen and pelvis were negative. She was treated with morphine and ondansetron and discharged on hydrocodone. Back pain resolved, but rightshoulder pain was still 7/10 and aggravated by arm movement. Hydrocodone did not provide much relief, and she felt better taking Tylenol and prednisone 10 mg. Today at dialysis, they applied an ice pack to the shoulder which seemed to help. Pain involved the whole right shoulder but a spot in the scapula was the most tender. ACTIVE PROBLEM LIST Essential Tremor Environmental Allergies [...] (Hcc) Coronary Artery Disease Anxiety About Health Vitamin D Deficiency Current Outpatient Medications Medication Sig ergocalciferol 50,000 unit capsule (VITAMIN D2, DRISDOL) Take 1 capsule by mouth one time a week. ipratropium-albuterol (DUONEB) 0.5 mg-3 mg(2.5 mg base)/3 [...] Take 1 capsule by mouth once daily. idueqqizqyw-gdssswags-cqidqtby (TRELEGY ELLIPTA) 200-62.5-25 mcg inhalation powder Inhale 1 Puff asinstructed once daily. ondansetron orally disintegrating (ZOFRAN ODT) 4 mg disintegrating tablet Take 1 tablet by mouth every 8 hours as needed for nausea/vomiting. isosorbide mononitrate ER (IMDUR) 60 mg 24 [...] tablet by mouth two times a day. acetaminophen (TYLENOL) 325 mg tablet Take 650 [...] ounces of liquid and take as directed. predniSONE (DELTASONE) 10 mg tablet TAKE BY MOUTH 4 TABLETS DAILY FOR 2 DAYS, THEN 3 TABLETS DAILY FOR 2 DAYS, THEN 2 TABLETS DAILY FOR 2 DAYS, THEN 1 TABLET DAILY FOR 2 DAYS. benzonatate (TESSALON PERLE) 100 mg capsule Take 2 capsules by mouth three times a day as needed for cough. OXYGEN, HOME THERAPY, Inhale 3 L/min as instructed as directed. 3L NC continuous, up to 4L with exertion No current facility-administered medications for this visit. Review of Systems Constitutional: Negative for fatigue and fever. Respiratory: Negative for shortness of breath. Cardiovascular: Negative for chest pain. Gastrointestinal: Negative for abdominal pain. Objective BP 116/78 Pulse 68 Temp 36.1 C (97 F) (Temporal) Resp 12 Wt 63.3 kg (139 lb 8.8 oz) SpO2 (!) 89% BMI 24.33 kg/m Physical Exam Constitutional: General: She is not in acute distress. Appearance: She is not diaphoretic. Pulmonary: Effort: No respiratory distress. Breath sounds: Rhonchi present. Chest: Chest wall: No tenderness. Musculoskeletal: Right shoulder: Tenderness (general soft tissue tenderness) present. No swelling, deformity or crepitus. Decreased range of motion. Normal strength. Right upper arm: No swelling, deformity or tenderness. Right elbow: No swelling or deformity. Cervical back: No edema, tenderness or crepitus. Neurological: Mental Status: She is alert. ASSESSMENT/PLAN: 1. Acute pain of right shoulder - ICD9: 719.41, ICD10: M25.511 (primary diagnosis) - Take prednisone bolus. Continue Tylenol as needed. 2. Chronic obstructive pulmonary disease with acute exacerbation (HCC) - ICD9: 491.21, ICD10: J44.1 - Symptoms controlled - PREDNISONE 10 MG TABLET Julio Draper MD documented in this encounterMemorial [facility]08-11-2025 NoteHNO ID: [id number] Author: JULIO DRAPER MD Service: ? Author Type: Physician Type: Progress Notes Filed: 02/11/2025 19:00 Note Text: Subjective Sneha Cardenas is a 69 year old female. Patient presents with: ER F/U: FLANK/RIGHT SHOULDER PAIN She developed right shoulder pain and upper back pain at the end of dialysis 4 days ago. Pain worsened to 10/10 severity by 02/09/25 so she went to the ED where labs, including troponin x 2 were none contributory. Chest xray, Right shoulder xray, and CT of the abdomen and pelvis were negative. She was treated with morphine and ondansetron and discharged on hydrocodone. Back pain resolved, but right shoulder pain was still 7/10 and aggravated by arm movement. Hydrocodone did not provide much relief, and she felt better taking Tylenol and prednisone 10 mg. Today at dialysis, they applied an ice pack to the shoulder which seemed to help. Pain involved the whole right shoulder but a spot in the scapula was the most tender. ACTIVE PROBLEM LIST Essential Tremor Environmental Allergies [...] (Hcc) Coronary Artery Disease Anxiety About Health Vitamin D Deficiency Current Outpatient Medications Medication Sig ergocalciferol 50,000 unit capsule (VITAMIN D2, DRISDOL) Take 1 capsule by mouth one time a week. ipratropium-albuterol (DUONEB) 0.5 mg-3 mg(2.5 mg base)/3 [...] Take 1 capsule by mouth once daily. cdkqgomrcfo-peocnfjpi-lzzrtbbp (TRELEGY ELLIPTA) 200-62.5-25 mcg inhalation powder Inhale 1 Puff as instructed once daily. ondansetron orally disintegrating (ZOFRAN ODT) 4 mg disintegrating tablet Take 1 tablet by mouth every 8 hours as needed for nausea/vomiting. isosorbide mononitrate ER (IMDUR) 60 mg 24 [...] tablet by mouth two times a day. acetaminophen (TYLENOL) 325 mg tablet Take 650 [...] ounces of liquid and take as directed. predniSONE (DELTASONE) 10 mg tablet TAKE BY MOUTH 4 TABLETS DAILY FOR 2 DAYS, THEN 3 TABLETS DAILY FOR 2 DAYS, THEN 2 TABLETS DAILY FOR 2 DAYS, THEN 1 TABLET DAILY FOR 2 DAYS. benzonatate (TESSALON PERLE) 100 mg capsule Take 2 capsules by mouth three times a day as needed for cough. OXYGEN, HOME THERAPY, Inhale 3 L/min as instructed as directed. 3L NC continuous, up to 4L with exertion No current facility-administered medications for this visit. Review of Systems Constitutional: Negative for fatigue and fever. Respiratory: Negative for shortness of breath. Cardiovascular: Negative for chest pain. Gastrointestinal: Negative for abdominal pain. Objective BP 116/78 Pulse 68 Temp 36.1 ?C (97 ?F) (Temporal) Resp 12 Wt 63.3 kg (139 lb 8.8 oz) SpO2 (!) 89% BMI 24.33 kg/m? Physical Exam Constitutional: General: She is not in acute distress. Appearance: She is not diaphoretic. Pulmonary: Effort: No respiratory distress. Breath sounds: Rhonchi present. Chest: Chest wall: No tenderness. Musculoskeletal: Right shoulder: Tenderness (general soft tissue tenderness) present. No swelling, deformity or crepitus. Decreased range of motion. Normal strength. Right upper arm: No swellin (more content not included)...[facility]08-09-2025 Radiology Diagnostic study note [facility] [address] [place] [address] [id number] Chest PA and Lateral MR#: [id number] Acct: [id number] Name: SNEHA CARDENAS Rep #: [id number] : 1955 F 69 From: Piper Geiger MD PCP: Dr. Julio Draper MD Status: R EG ER Study:Chest PA and Lateral Date of Exam: 02/09/25 Exam# [id number] Ordering Dr: Livan Murry DO PROCEDURE: CHEST PA AND LATERAL 02/09/2025 REASON FOR EXAM: COUGH TECHNIQUE: CHEST PA AND LATERAL COMPARISON: Chest radiograph 10/31/2024. FINDINGS: Hardware: Stable partial right shoulder arthroplasty. Heart: The heart size is normal. Mediastinum: The mediastinal contour is stable. Lungs: Bibasilar atelectasis. No focal consolidation, pleural effusion or pneumothorax. Bones: Degenerative changes are identified within the thoracic spine. RAD/Chest PA and Lateral IMPRESSION: NO ACUTE FINDINGS. Reading Location: [id number] CC: Dr. Livan Murry DO; Dr. Julio Draper MD ~ Offset Plate Maker: Signed [facility]08-09-2025 Radiology Diagnostic study note [facility] [address] [place], [place] [id number] Shoulder min 2 Views MR#: [id number] Acct: [id number] Name: SNEHA CARDENAS Rep #: [id number] : 1955 F 69 From: Piper Geiger MD PCP: Dr. Julio Draper MD Status: R EG ER Study:Shoulder min 2 Views Date of Exam: 02/09/25 Exam# [id number] Ordering Dr: Livan Murry DO PROCEDURE: SHOULDER MIN 2 VIEWS 02/09/2025 REASON FOR EXAM: INJURY/PAIN TECHNIQUE: SHOULDER MIN 2 VIEWS Laterality: Right COMPARISON: Right shoulder radiographs 09/17/2024. FINDINGS: Bones: No obvious acute fracture or dislocation. Joints: Prior partial right shoulder arthroplasty in grossly anatomic alignment. Soft tissues: Soft tissues are unremarkable. Other: Calcification of the thoracic aorta. RAD/Shoulder min 2 Views IMPRESSION: NO ACUTE FRACTURE OR DISLOCATION. Reading Location: [facility] CC: Dr. Livan Murry DO; Dr. Julio Draper MD ~ Offset Plate Maker: Signed [facility]08-09-2025 Radiology Diagnostic study note [facility] [address] [place] [address] Abdomen/Pelvis without Cont MR#: [id number] Acct: [id number] Name: SNEHA CARDENAS Rep #: [id number] : 1955 F 69 From: Piper Geiger MD PCP: Dr. Julio Draper MD Status: R EG ER Study:Abdomen/Pelvis without Cont Date of Exa m: 02/09/25 Exam# [id number] Ordering Dr: Livan Murry DO PROCEDURE: ABDOMEN/PELVIS WITHOUT CONT 02/09/2025 REASON FOR EXAM: FLANK PAIN TECHNIQUE: ABDOMEN/PELVIS WITHOUT CONT Noncontrast technique limits evaluation of the abdominal and pelvic viscera. Coronal and Sagittal reconstruction series were provided. One or more dose reduction techniques were used (e.g., Automated exposure control, adjustment of the mA and/or kV according to patient size, use of iterative reconstruction technique). RADIATION DOSE SUMMARY: DLP: 311 mGycm COMPARISON: CT abdomen pelvis 07/05/2023. FINDINGS: Lung bases: Small right and trace left pleural effusions with adjacent atelectasis, improved since prior examination. Severe coronary artery calcifications. Liver: The unopacified liver is normal in size. No biliary ductal dilation. Gallbladder: Surgically absent. Spleen: Normal size. Pancreas: The unopacified pancreas is unremarkable. Adrenals: No adrenal mass. Kidneys: Moderate bilateral renal cortical scarring. Stable right upper pole renal calculus, unchanged since at least 2023. No hydronephrosis. Bladder: Mildly distended and unremarkable. Reproductive Organs: Unremarkable uterus. Bowel: The bowel loops are nondilated. No ascites or pneumoperitoneum. No inflammatory mass in the expected region of the appendix. Lymph nodes: Visualization is limited without the use of IV contrast. No large lymphadenopathy. Vasculature: Severe calcific plaque of the abdominal aorta. Bones: Thoracolumbar spondylosis. Chronic left rib fracture deformities. CT/Abdomen/Pelvis without Cont IMPRESSION: No acute abdominopelvic finding. Chronic findings as described. Reading Location: [id number] CC: Dr. Livan Murry DO; Dr. Julio Draper MD ~ Offset Plate Maker: Signed [facility]07-24-2025 Evaluation note* Diagnosis Onset Date Resolution Status Admit Date History of atrial fibrillation acute January 24, 2025 3:27pm Coronary artery disease chronic J cassandra 2024 3:27pm Essential hypertension chronic Ju ly 2024 3:27pm Hyperlipidemia chronic January 24, 2025 3:27pm Transient atrial fibrillation resolv ed January 24, 2025 3:27pm End-stage renal disease (ESRD) inact spencer January 24, 2025 3:27pm [facility] Work Phone: [phone] 528-852707-03-2025 History and physical note Author Livan Love [facility] Note Date/Time January 03, 2025 12:02 pm [facility] Medical Records Department [address] [place] [address] History & Physical Exam 01/03/25 1155 MR#: [id number] Acct: [id number] Name: SNEHA CARDENAS Rep #:[id number] : 1955 69 From: Livan Love MD PCP: Dr. Julio Draper MD Status:R [facility] Location: [facility] HPI - General HPI Narrative SNEHA CARDENAS, is a 69 F who presents with left basilic fistula with diminishedaccess flow testing. Able to complete session, no prolonged bleeding. [facility] Medical History End stage renal disease on [...] 70 mg tablet 70 mg PO QWEEK 10/31/2410/03 History azithromycin 250 mg tablet 250 mg [...] Love MD; Dr. Julio Draper MD~ Signed [facility] Work Phone: [phone] 520-683907-03-2025 History and physical note [facility] Medical Records Department [address] [place] [id number] History & Physical Exam 01/03/25 1155 MR#: [id number] Acct: [id number] Name: SNEHA CARDENAS Rep #:[id number] : 1955 69 From: Livan Love MD PCP: Dr. Julio Draper MD Status:R [facility] Location: [facility] HPI - General HPI Narrative SNEHA CARDENAS, is a 69 F who presents with left basilic fistula with diminishedaccess flow testing. Able to complete session, no prolonged bleeding. [facility] Medical History End stage renal disease on [...] 70 mg tablet 70 mg PO QWEEK 10/31/2410/03 History azithromycin 250 mg tablet 250 mg [...] Love MD; Dr. Julio Draper MD~ Signed [facility]07-03-2025 [facility]07-03-2025 Evaluation note* Diagnosis Onset Date Resolution Status Admit Date Dialysis AV fistula malfunction acut e January 03, 2025 9:29am History of atrial fibrillation acute January 24, 2025 3:27pm Coronary artery disease chronic J cassandra 2024 3:27pm Essential hypertension chronic Ju ly 2024 3:27pm Hyperlipidemia chronic January 24, 2025 3:27pm Transient atrial fibrillation resolv ed January 24, 2025 3:27pm End-stage renal disease (ESRD) inact spencer January 24, 2025 3:27pm [facility] Work Phone: [phone] Telephone encounter Note* Telephone Encounter - Abimbola Lewis LPN - 11/29/2024 3:06 PM EDT Results scanned to [facility]. Patient notified results within normal limits. Abimbola Lewis LPN [facility]05-29-2025 Miscellaneous Notes* Telephone Encounter - Abimbola Lewis LPN - 11/29/2024 3:06 PM EDT Results scanned to [facility]. Patient notified results within normal limits. Abimbola Lewis LPN * Telephone Encounter - Abimbola Lewis LPN - 11/29/2024 11:34 AM EDT No results received and no order placed for overnight oximetry from this office. Called Sunil at [facility], [place]. 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 She will send the results for review. Abimbola Lewis LPN * Telephone Encounter - Janie Yanes LPN - 11/29/2024 10:28 AM EDT Patient is wanting results from [facility] [place]. Patient has an O2 monitor and Jean-Pierre Vitale recommend patient call office back to find out results. Patient stated that she had monitor on x 1 month ago. Please review and advise further. Janie Yanes LPN documented in this encounterMemorial [facility]05-[facility] Telephone encounter Note * Telephone Encounter - Abimbola Lewis LPN - 11/29/2024 11:34 AM EDT No results received and no order placed for overnight oximetry from this office. Called Sunil at [facility] [place]. 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 She will send the results for review. Abimbola Lewis LPN [facility]05-29-2025 Telephone encounter Note* Telephone Encounter - Janie Yanes LPN - 11/29/2024 10:28 AM EDT Patient is wanting results from [facility] [place]. Patient has an O2 monitor and Jean-Pierre Vitale recommend patient call office back to find out results. Patient stated that she had monitor on x 1 month ago. Please review and advise further. Janie Yanes LPN [facility]05-16-2025 Telephone encounter Note* Telephone Encounter - Magali Nieves MD - 11/16/2024 12:17 PM EDT Spoke to Sneha regarding chest CT. Most nodules stable, one in MELLISA slightly smaller. 2 cm GGO stable. Radiologist believes GGO is area of atelectasis based no side view showing it is flat. Patient at risk for cancer but not an operative candidate. Repeat imaging [facility]05-16-2025 Miscellaneous Notes* Telephone Encounter - Magali Nieves MD - 11/16/2024 12:17 PM EDT Spoke to Sneha regarding chest CT. Most nodules stable, one in MELLISA slightly smaller. 2 cm GGO stable. Radiologist believes GGO is area of atelectasis based no side view showing it is flat. Patient at risk for cancer but not an operative candidate. Repeat imaging documented in this encounterMemorial [facility]05-[facility] History of Present illness Narrative* Jean-Pierre Vitale APRN.HEAD SAWYER - 11/14/2024 3:00 PM EDT Images from [...] have a heart monitor placed. Established with [facility]. She also had an updated [...] pathological fracture 08/28/2021 EARNEST (acute kidney injury) ([facility]) EARNEST (acute kidney injury) ([facility]) Anemia requiring transfusions 06/15/2023 Antibiotic-associated diarrhea 07/14/2023 Asthma Benign essential tremor Chronic obstructive pulmonary disease ([facility]) 07/25/2012 Chronic respiratory failure with hypoxia ([facility]) 11/05/2022 Coagulation defect, unspecified ([facility]) 08/25/2023 COPD (chronic obstructive pulmonary disease) ([facility]) 07/25/2012 FEV1 0.84L (32%), 10/18/2014 Coronary artery disease 08/19/2023 DDD (degenerative disc disease), cervical 08/15/2015 Empyema ([facility]) 07/09/2023 Environmental allergies Wheezes with hay or dust ESRD (end stage renal disease) ([facility]) Essential and other specified forms of tremor 11/02/2007 Benign essential -- started primidone 06/03/09, Dr. Nguyễn Essential tremor 11/02/2007 Benign essential -- started primidone 06/03/09, Dr. Nguyễn Gastrointestinal hemorrhage associated with peptic ulcer 08/02/2023 Hemodialysis catheter malfunction ([facility]) 08/19/2023 History of colon polyps 2010 Tubular adenoma. Hypertension Hypoxemia 05/01/2021 Post Covid pneumonia. Irritable bowel syndrome Lung nodule Migraine headache Improved with primidone Multiple duodenal ulcers 06/30/2023 NSTEMI (non-ST elevated myocardial infarction) ([facility]) 07/20/2023 Parapneumonic effusion Pneumonia due to COVID-19 virus 05/01/2021 Pneumonia due to infectious organism 06/30/2023 Pulmonary emphysema ([facility]) 07/19/2023 Scoliosis Shock, septic ([facility]) 07/11/2023 Snoring Tobacco use disorder Quit 03/04/2015. [...] ELLIPTA 200-62.5-25 mcg inhalation powder Generic drug: ixrbwurvrqj-jxbivwixh-upjigdzj Inhale 1 Puff as instructed once daily. DATA: I personally reviewed and analyzed all labs, radiographs and available pulmonary function testing PFT: 05/2021 Spirometry indicates severe obstruction CXR: Last XR Chest - Impression Only XR CHEST 2V FRONTAL/LAT Exam End: 10/08/2024 7:27 PM (Final result) Impression: IMPRESSION: Improved. Minimal persistent linear atelectasis at the right lung base Offset Plate Maker: [facility] Transcribe Date/Time: Oct 09 2024 1:47P ... CT Chest: 11/06/2024 IMPRESSION: 1. No new or enlarging pulmonary nodules or thoracic lymphadenopathy. Slightly decreased in size of lateral right upper lobe pulmonary nodule. 2. Stable right upper lobe groundglass nodule, flat on coronal and sagittal image, likely a scarring or atelectasis. 3. Unchanged chronic small bilateral pleural effusions with pleural thickening. Offset Plate Maker: [employer] Transcribe Date/Time: Nov 12 2024 11:24A Dictated by : AME CRAIG MD This examination was interpreted and the report reviewed and electronically signed by: MAE CRAIG MD on Nov 12 2024 11:30AM EST Results-Findings * * *Final Report* * * DATE OF EXAM: Nov 06 2024 10:16AM [facility] 0541 - CT CHEST WO IVCON / [...] Neut (k/uL) Date Value 08/17/2023 15.51 Abs [place] (k/uL) Date Value 08/17/2023 0.89 09/26/2012 0.53 [...] edited and updated as necessary. Jean-Pierre Vitale APRN.CNP I spent a total of 26 minutes on the date of the service which included preparing to see the patient, wlxu-[id number] patient care, completing clinical documentation, performing a medically appropriate examination, counseling and educating the patient/family/caregiver, and ordering medications, tests,or procedures. documented in this encounterMemorial [facility]05-14-2025 NoteHNO ID: [id number] Author: JEAN-PIERRE VITALE APRN.CNP Service: ? Author [...] PRN Albuterol. She presents today for follow-up. [facility] 09/2024 following multiple hospitalizations. Had just been [...] have a heart monitor placed. Established with [facility]. She also had an updated [...] pathological fracture 08/28/2021 EARNEST (acute kidney injury) ([facility]) EARNEST (acute kidney injury) ([facility]) Anemia requiring transfusions 06/15/2023 Antibiotic-associated diarrhea 07/14/2023 Asthma Benign essential tremor Chronic obstructive pulmonary disease ([facility]) 07/25/2012 Chronic respiratory failure with hypoxia ([facility]) 11/05/2022 Coagulation defect, unspecified ([facility]) 08/25/2023 COPD (chronic obstructive pulmonary disease) ([facility]) 07/25/2012 FEV1 0.84L (32%), 10/18/2014 Coronary artery disease 08/19/2023 DDD (degenerative disc disease), cervical 08/15/2015 Empyema ([facility]) 07/09/2023 Environmental allergies Wheezes with hay or dust ESRD (end stage renal disease) ([facility]) Essential and other specified forms of tremor 11/02/2007 Benign essential -- started primidone 06/03/09, Dr. Nguyễn Essential tremor 11/02/2007 Benign essential -- started primidone 06/03/09, Dr. Nguyễn Gastrointestinal hemorrhage associated with peptic ulcer 08/02/2023 Hemodialysis catheter malfunction ([facility]) 08/19/2023 History of colon polyps 2009 Tubular adenoma. Hypertension Hypoxemia 05/01/2021 Post Covid pneumonia. Irritable bowel syndrome Lung nodule Migraine headache Improved with primidone Multiple duodenal ulcers 06/30/2023 NSTEMI (non-ST elevated myocardial infarction) ([facility]) 07/20/2023 Parapneumonic effusion Pneumonia due to COVID-19 virus 05/01/2021 Pneumonia due to infectious organism 06/30/2023 Pulmonary emphysema ([facility]) 07/19/2023 Scoliosis Shock, septic ([facility]) 07/11/2023 Snoring Tobacco use disorder Quit 03/04/2015. [...] mg(2.5 mg base)/3 mL (more content not included)...[facility]05-14-2025 Telephone encounter Note* Telephone Encounter - Genna [...] to fax over results. Genna Lowry RN [facility]05-14-2025 Miscellaneous Notes* Telephone Encounter - Genna [...] results. Genna Lowry RN documented in this encounterMemorial Health System [facility]05-13-2025 NoteHNO ID: [id number] Author: JULIO DRAPER MD Service: ? Author Type: Physician Type: Progress Notes Filed: 11/13/2024 10:54 Note Text: This note was created using True Office. Subjective Sneha Cardenas is a 69 year old female here with Cash. She was in the ER 2 weeks ago for chest pain. She was not admitted, and advised follow [facility] with [facility]. She was seen by her charger operator 11/01/24 and Holter monitor for .paroxysmal atrial [...] Take 1 capsule by mouth once daily. ihudouxwesj-xoikbemxo-zodnumbq (TRELEGY ELLIPTA) 200-62.5-25 mcg inhalation powder Inhale [...] and Plan 1. Primar (more content not included)...[facility]05-13-2025 History of Present illness Narrative* Julio Draper MD - 11/13/2024 10:45 AM EDT This note was created using AMVONETter. Subjective Sneha Cardenas is a 69 year old female here with Cash. She was in the ER 2 weeks ago for chest pain. She was not admitted, and advised follow up with the [facility]. She was seen by her charger operator 11/01/24 and Holter monitor for .paroxysmal atrial [...] Take 1 capsule by mouth once daily. btxngwynrcd-jupvpfwoa-pjlcctqg (TRELEGY ELLIPTA) 200-62.5-25 mcg inhalation powder Inhale [...] MG TABLET 3. Coronary artery disease involving [place] coronary artery of [place] heart without angina pectoris- ICD9: 414.01, ICD10: I25.10 - Stable, per [facility]. - LIPID PANEL, FASTING 4. Paroxysmal atrial fibrillation (HCC) - ICD9: 427.31, ICD10: I48.0 - Evaluation ongoing. Schedule Welcome to Medicare visit. Julio Draper MD documented in this encounterMemorial [facility]05-06-2025 History of Present illness Narrative* Jacinto Blanchard, RT(R) - 11/06/2024 10:00 AM EDT Radiology [...] PATIENT PRESENTS WITH AN IMPLANTABLE OR ATTACHED NURSE ESTHETICIAN: No RADIOLOGY DEPARTMENT: CT; Exam(s) Completed: Chest PERIPHERAL IV DATA: Not applicable SIGNED BY: RT Burke(Everardo) November 06, 2024 3:22 PM documented in this encounterMemorial Health System [facility]05-06-2025 NoteHNO ID: [id number] Author: JACINTO BLANCHARD RT(R) Service: ? Author Type: Morning Nanny Type: Progress Notes Filed: 11/06/2024 15:23 Note [...] PATIENT PRESENTS WITH AN IMPLANTABLE OR ATTACHED NURSE ESTHETICIAN: No RADIOLOGY DEPARTMENT: CT; Exam(s) Completed: Chest PERIPHERAL IV DATA: Not applicable SIGNED BY: ERASMO Turk) November 06, 2024 3:22 [facility]05-01-2025 Evaluation note* Diagnosis Onset Date Resolution Status Admit Date Coronary artery disease chronic M ay 2024 11:29am Essential hypertension chronic Ma y 2024 11:29am Hyperlipidemia chronic November 01, 2 025 11:29am Transient atrial fibrillation resolv ed November [...] (ESRD) inact spencer January 24, 2025 3:27pm [facility] Work Phone: [phone] Telephone encounter Note* Telephone Encounter - Annette Gonzalez MA - 11/01/2024 9:26 AM EDT Patient phones requesting refills as follows: Requested Prescriptions Pending Prescriptions Disp Refills fluticasone (FLONASE) 50 mcg/actuation nasal spray 1 each 11 Sig: Use 2 sprays in each nostril once daily. Rinse mouth after use. Please review and advise. Annette Gonzalez MA [facility]05-01-2025 Miscellaneous Notes* Telephone Encounter - Annette Gonzalez MA - 11/01/2024 9:26 AM EDT Patient phones requesting refills as follows: Requested Prescriptions Pending Prescriptions Disp Refills fluticasone (FLONASE) 50 mcg/actuation nasal spray 1 each 11 Sig: Use 2 sprays in each nostril once daily. Rinse mouth after use. Please review and advise. Annette Gonzalez MA documented in this encounterMemorial Health [facility]04-07-2025 History of Present illness Narrative* Alva [...] PATIENT PRESENTS WITH AN IMPLANTABLE OR ATTACHED NURSE ESTHETICIAN: No RADIOLOGY DEPARTMENT: General X-ray: Exam(s) Completed: Chest X-Ray PERIPHERAL IV DATA: Not applicable SIGNED BY: ERASMO Dickson) October 08, 2024 7:21 PM documented in this encounterMemorial Health System [facility]04-07-2025 NoteHNO ID: [id number] Author: ALVA BAEZ RT (R) Service: Radiology Author Type: Technologist Type: Progress [...] PATIENT PRESENTS WITH AN IMPLANTABLE OR ATTACHED NURSE ESTHETICIAN: No RADIOLOGY DEPARTMENT: General X-ray: Exam(s) Completed: Chest X-Ray PERIPHERAL IV DATA: Not applicable SIGNED BY: RT Randolph(R) October 08, 2024 7:21 [facility]04-07-2025 Instructions* Patient Instructions* Julio Draper MD - [...] 4 liters when active, [facility]. - Your lungs have some [...] can view your chest x-ray results on Play[employer], and I will also review them and follow up with you if further action is needed. documented in this encounterMemorial Health System [facility]04-07-2025 NoteHNO ID: [id number] Author: JULIO DRAPER MD Service: ? Author Type: Physician Type: Progress Notes Filed: 10/08/2024 19:23 Note Text: This note was created using True Office. Subjective Patient presents with: Breast Problem The patient consented to the use of [employer] software for draft documentation of the visit consistent with [facility]?s Notice of Privacy Practices. Sneha is [...] Take 1 capsule by mouth once daily. nblnoqydkvu-ykzqgshxs-dtlsmshv (TRELEGY ELLIPTA) 200-62.5-25 mcg inhalation powder Inhale [...] by mouth once d (more content not included)...[facility]04-07-2025 History of Present illness Narrative* Julio Draper MD - 10/08/2024 7:03 PM EDT This note was created using True Office. Subjective Patient presents with: Breast Problem The patient consented to the use of ambient [employer] software for draft documentation of the visit consistent with [facility] s Notice of Privacy Practices. Sneha [...] Former Smoker Nstemi (Non-St Elevated Myocardial Infarction) ([facility]) Pleural Effusion Malnutrition of Mild Degree (Hcc) Esrd (End Stage Renal Disease) ([facility]) Coronary Artery Disease Anxiety About Health Social [...] Take 1 capsule by mouth once daily. raxwpwdtwcc-ugnfjjddc-ctbhdpfp (TRELEGY ELLIPTA) 200-62.5-25 mcg inhalation powder Inhale [...] PREDNISONE 10 MG TABLET - Patient on ad terminal makeup operator azithromycin. 2. History of pneumonia - ICD9: V12.61, ICD10: Z87.01 - Do chest X-ray today. If +, we will treat for acute pneumonia. Julio Draper MD documented in this encounterMemorial Health System [facility]04-07-2025 Telephone encounter Note * Telephone Encounter [...] Dr. Draper at 6 pm this evening. [facility]04-07-2025 Miscellaneous Notes* Telephone Encounter - Sarah [...] 6 pm this evening. documented in this encounterMemorial Health System [facility]03-26-2025 Telephone encounter Note * Telephone Encounter - Le Aponte RN - 09/26/2024 3:23 PM EDT Nelson, Nurse with [facility] calling and states patient will be seen one time next week and then will bedischarged from services. No call back needed. Le Aponte RN [facility]03-26-2025 Miscellaneous Notes* Telephone Encounter - Le Aponte RN - 09/26/2024 3:23 PM EDT Nelson, Nurse with [facility] calling and states patient will be seen one time next week and then will bedischarged from services. No call back needed. Le Aponte RN documented in this encounterMemorial Health System [facility]03-25-2025 Telephone encounter Note * Telephone Encounter - Ericka Christopher LPN - 09/25/2024 12:40 PM EDT These will be in medical records today by 1 pm. Pt notified. Did also copy form completed for pts records here. [facility]03-25-2025 Miscellaneous Notes* Telephone Encounter - Ericka [...] October 02, 2024. Please call patient at [phone] when patient can pick forms/papers up. Carol [...] ones that were completed. documented in this encounterMemorial Health System [facility]03-25-2025 Telephone encounter Note * Telephone Encounter - Carol Sosa RN - 09/25/2024 12:09 PM EDT Patient calls back and reports she doesn't have a fax number so she will have to pick forms up in medical records so that she can mail forms overnight so they receive them by October 02, 2024. Please call patient at [phone] when patient can pick forms/papers up. Carol Sosa RN [facility]03-25-2025 Telephone encounter Note* Telephone Encounter - Ericka Christopher LPN - 09/25/2024 11:14 AM EDT Pcp has completed this form. There is no fax number on it. They want 6 months of office notes. Pt notified. She will call them and get a fax number for the office to fax back to. She will call back with this info. [facility]03-24-2025 Telephone encounter Note* Telephone Encounter - Magali Casey MA - 09/24/2024 9:24 AM EDT Patient was notified and will call to get balance paid Magali Casey MA [facility]03-24-2025 Miscellaneous Notes* Telephone Encounter - Magali Casey MA - 09/24/2024 9:24 AM EDT Patient was notified and will call to get balance paid Magali Casey MA * Telephone Encounter - Genna Lowry RN - 09/24/2024 8:28 AM EDT Michele from [facility] calls and reports that they received referral for patient. Michele reports that they are unable to see patient because patient currently is in collections with them. Patient will have to be referral to someone else. Genna Lowry RN documented in this encounterMemorial Health System [facility]03-24-2025 Telephone encounter Note * Telephone Encounter - Genna Lowry RN - 09/24/2024 8:28 AM EDT Michele from [facility] calls and reports that they received referral for patient. Michele reports that they are unable to see patient because patient currently is in collections with them. Patient will have to be referral to someone else. Genna Lowry RN [facility]03-20-2025 Telephone encounter Note* Telephone Encounter - Ericka Christopher LPN - 09/20/2024 12:00 PM EDT Pt brought in disability forms for pcp to complete. They have been completed before. It is requested to be done again due by 10/02/24. To pcp to review. Did print last ones that were completed. [facility]03-19-2025 NoteHNO ID: [id number] Author: JULIO DRAPER MD Service: ? Author Type: Physician Type: Progress Notes Filed: 09/20/2024 07:03 Note Text: This note was created using AMVONETter. Subjective Patient presents with: ER F/U Sneha [...] Take 1 capsule by mouth once daily. odgizujdzft-rxxmhbllg-cupetxkr (TRELEGY ELLIPTA) 200-62.5-25 mcg inhalation powder Inhale [...] Breath sounds: No wheezing (more content not included)...[facility]03-19-2025 History of Present illness Narrative* Julio Draper MD - 09/19/2024 4:46 PM EDT This note was created using NoteWriter. Subjective Patient presents with: ER F/U Sneha Mendoza Conor is a 69 year old female, who [...] Take 1 capsule by mouth once daily. zozvxbmtqpz-iurkqutmk-dolpcvaw (TRELEGY ELLIPTA) 200-62.5-25 mcg inhalation powder Inhale [...] try a short steroid course for inflammation. [place] risks reviewed. - COMPLETE BLOOD COUNT - SEDIMENTATION RATE, WESTERGREN - D-DIMER - HYDROCODONE 5 MG-ACETAMINOPHEN 325 MG TABLET - CONSULT TO ORTHOPAEDICS - PREDNISONE 20 MG TABLET 2. Chronic obstructive pulmonary disease with acute exacerbation (HCC) - ICD9: 491.21, ICD10: J44.1 - Stable. Julio Draper MD documented in this encounterMem[facility] Radiology Diagnostic study [facility]03-17-2025 Telephone encounter Note* Telephone Encounter - Le [...] above 7. : no Protocols used: Shoulder Jmui-IIOPQ-RN [facility]03-17-2025 Miscellaneous Notes* Telephone Encounter - Le [...] above 7. : no Protocols used: Shoulder [id number]-EN documented in this encounterMemorial [facility]03-07-2025 Telephone encounter Note * Telephone Encounter - Carol Sosa RN - 09/07/2024 2:47 PM EST Richi PT with [facility] calls to let provider know that patient had dialysis fistula replaced and requested to move PT eval visit to next Tuesday09/11/2024. Ok given per patient request. Nothing further needed closing encounter. Carol Sosa RN [facility]03-07-2025 Telephone encounter Note* Telephone Encounter - Lorna Angel RN - 09/07/2024 2:47 PM EST Nelson with [facility] is calling to information pcp that they have re certified patient with senior care for once weekly visits for the next 3 weeks and then they will re-evaluate. [facility]03-07-2025 Miscellaneous Notes* Telephone Encounter - Carol Sosa RN - 09/07/2024 2:47 PM EST Richi PT with [facility] calls to let provider know that patient had dialysis fistula replaced and requested to move PT eval visit to next Tuesday09/11/2024. Ok given per patient request. Nothing further needed closing encounter. Carol Sosa RN documented in this encounterMemorial [facility]03-07-2025 Miscellaneous Notes* Telephone Encounter - Lorna Angel RN - 09/07/2024 2:47 PM EST Nelson with [facility] is calling to information pcp that they have re certified patient with senior care for once weekly visits for the next 3 weeks and then they will re-evaluate. documented in this encounterMemorial Health [facility]03-06-2025 Evaluation note* Diagnosis Onset Date Resolution [...] y 2024 11:29am Hyperlipidemia chronic November 01, 025 11:29am Transient atrial fibrillation resolved November 01, 2024 11:29am End-stage renal disease (ESRD) inactive November 01, 2024 11:29am Dialysis AV fistula malfunction acute January 03, 2025 9:29am [facility] Work Phone: [phone]) 906-596503-06-2025 [facility]03-04-2025 NoteHNO ID: [id number] Author: SHAINA NEW MA Service: ? Author Type: Cellophane Press Operator Type: Progress Notes Filed: 09/04/2024 16:07 Note Text: Patient presents with: COPD AMB ROOMING INTAKE FLOWSHEET DATA Patient states she is continuing to be on oxygen most of the time. She has been on Prednisone and Z-babak given by Dr. Draper after she got home from the hospital. She has 1 week left of the prednisone to take.[facility]03-04-2025 History of Present illness Narrative* Shaina New MA - 09/04/2024 1:06 PM EST Patient presents with: COPD AMB ROOMING INTAKE FLOWSHEET DATA Patient states she is continuing to be on oxygen most of the time. She has been on Prednisone and Z-babak given by Dr. rDaper after she got home from the hospital. She has 1 week left of the prednisone to take. * Jean-Pierre Vitale APRN.HEAD SAWYER - 09/04/2024 1:00 PM EST Images from [...] Benign essential tremor Chronic obstructive pulmonary disease ([facility]) 07/25/2012 Chronic respiratory failure with hypoxia ([facility]) 11/05/2022 Coagulation defect, unspecified ([facility]) 08/25/2023 COPD (chronic obstructive pulmonary disease) ([facility]) 07/25/2012 FEV1 0.84L (32%), 10/18/2014 Coronary artery disease 08/19/2023 DDD (degenerative disc disease), cervical 08/15/2015 Empyema ([facility]) 07/09/2023 Environmental allergies Wheezes with hay or dust ESRD (end stage renal disease) ([facility]) Essential and other specified forms of tremor 11/02/2007 Benign essential -- started primidone 06/03/09, Dr. Nguyễn Essential tremor 11/02/2007 Benign essential -- started primidone 06/03/09, Dr. Nguyễn Gastrointestinal hemorrhage associated with peptic ulcer 08/02/2023 Hemodialysis catheter malfunction ([facility]) 08/19/2023 History of colon polyps 2009 Tubular adenoma. Hypertension Hypoxemia 05/01/2021 Post Covid pneumonia. Irritable bowel syndrome Lung nodule Migraine headache Improved with primidone Multiple duodenal ulcers 06/30/2023 NSTEMI (non-ST elevated myocardial infarction) ([facility]) 07/20/2023 Parapneumonic effusion Pneumonia due to COVID-19 virus 05/01/2021 Pneumonia due to infectious organism 06/30/2023 Pulmonary emphysema ([facility]) 07/19/2023 Scoliosis Shock, septic ([facility]) 07/11/2023 Snoring Tobacco use disorder Quit 03/04/2015. [...] adenopathy Continued follow-up in 6 months recommended. Offset Plate Maker: JING Transcribe Date/Time: May 16 2024 2:04P Dictated by : LU JAMESON MD This examination was interpreted and the report reviewed and electronically signed by: LU JAMESON MD on May 16 2024 2:17PM EST Results-Findings * * *Final Report* * * DATE OF EXAM: May 10 2024 1:23PM [facility] 0541 - CT CHEST WO IVCON / [...] which included preparing to see the patient, whrj-bq-rgvo patient care, completing clinical documentation, performing a medically appropriate examination, counseling and educating the patient/family/caregiver, and ordering medications, tests,or procedures. documented in this encounterMemorial Health [facility]03-04-2025 NoteHNO ID: [id number] Author: JEAN-PIERRE VITALE APRN.MARIAN Service: ? Author Type: Nurse Practitioner [...] Benign essential tremor Chronic obstructive pulmonary disease ([facility]) 07/25/2012 Chronic respiratory failure with hypoxia ([facility]) 11/05/2022 Coagulation defect, unspecified ([facility]) 08/25/2023 COPD (chronic obstructive pulmonary disease) ([facility]) 07/25/2012 FEV1 0.84L (32%), 10/18/2014 Coronary artery disease 08/19/2023 DDD (degenerative disc disease), cervical 08/15/2015 Empyema ([facility]) 07/09/2023 Environmental allergies Wheezes with hay or dust ESRD (end stage renal disease) ([facility]) Essential and other specified forms of tremor 11/02/2007 Benign essential -- started primidone 06/03/09, Dr. Nguyễn Essential tremor 11/02/2007 Benign essential -- started primidone 06/03/09, Dr. Nguyễn Gastrointestinal hemorrhage associated with peptic ulcer 08/02/2023 Hemodialysis catheter malfunction ([facility]) 08/19/2023 History of colon polyps 2009 Tubular adenoma. Hypertension Hypoxemia 05/01/2021 Post Covid pneumonia. Irritable bowel syndrome Lung nodule Migraine headache Improved with primidone Multiple duodenal ulcers 06/30/2023 NSTEMI (non-ST elevated myocardial infarction) ([facility]) 07/20/2023 Parapneumonic effusion Pneumonia due to COVID-19 virus 05/01/2021 Pneumonia due to infectious organism 06/30/2023 Pulmonary emphysema ([facility]) 07/19/2023 Scoliosis Shock, septic ([facility]) 07/11/2023 Snoring Tobacco use disorder Quit 03/04/2015. [...] of breath. isosorbide mononi (more content not included)...[facility] 08-30-2024 History of Present illness Narrative* Giuseppe Vargas RT(Everardo) - 08/30/2024 10:05 AM EST Radiology Service [...] PATIENT PRESENTS WITH AN IMPLANTABLE OR ATTACHED NURSE ESTHETICIAN: No RADIOLOGY DEPARTMENT: Bone Density PERIPHERAL IV DATA: Not applicable SIGNED BY: RT Mayte(Everardo) August 30, 2024 9:58 AM documented in this encounterMemorial Health [facility]02-27-2025 NoteHNO ID: [id number] Author: GIUSEPPE VARGAS RT(R) Service: ? Author [...] PATIENT PRESENTS WITH AN IMPLANTABLE OR ATTACHED NURSE ESTHETICIAN: No RADIOLOGY DEPARTMENT: Bone Density PERIPHERAL IV DATA: Not applicable SIGNED BY: RT Mayte(R) August 30, 2024 9:58 [facility]02-11-2025 Telephone encounter Note* Telephone Encounter - Magali Casey MA - 08/14/2024 12:24 PM EST Let detailed message on [facility] Magali Casey MA [facility]02-11-2025 Miscellaneous Notes* Telephone Encounter - Magali Casey MA - 08/14/2024 12:24 PM EST Let detailed message on [facility] Magali Casey MA * Telephone Encounter - Tasha Laureano APRN.CNP - 08/14/2024 12:12 PM EST Peg Laureano APRN.MARIAN * Telephone Encounter - Carol Sosa RN - 08/14/2024 9:54 AM EST Any with [facility] call to request a verbal order to move patient's PT visit this week to the end of the week per patient request instead of creating a missed visit. Call back number to Any is [phone]. Carol Sosa RN documented in this encounterMemorial Health [facility]02-11-2025 Telephone encounter Note * Telephone Encounter - Tasha Laureano APRN.CNP - 08/14/2024 12:12 PM EST Peg Laureano APRN.CNP [facility]02-11-2025 NoteHNO ID: [id number] Author: JULIO DRAPER MD Service: ? Author Type: Physician Type: Progress Notes Filed: 08/14/2024 12:52 Note Text: This note was created using Equity Investors Groupriter. Subjective Patient presents with: Hospital F/U Sneha [...] tablet by mouth two times a day. bebfguykdn-vwlhecmu-qvepzfvfwl (BREZTRI) 160-9-4.8 mcg/actuation HFA aerosol inhaler Inhale [...] Abdomen is soft. Tenderne (more content not included)...[facility]02-11-2025 History of Present illness Narrative* Julio Draper MD - 08/14/2024 11:40 AM EST This note was created using NoteWriter. Subjective Patient presents with: [facility] F/U Sneha Cardenas is a 69 year old female was here again for another hospital follow up. She was admitted 2 to 08/10/24 for COPD exacerbation, acute on [...] tablet by mouth two times a day. wadfhzvzht-pfhjdhxg-adyllwwmlb (BREZTRI) 160-9-4.8 mcg/actuation HFA aerosol inhaler Inhale [...] week. Julio Draper MD documented in this encounterMemorial Health [facility]02-11-2025 Telephone encounter Note * Telephone Encounter - Carol Sosa RN - 08/14/2024 9:54 AM EST Any with [facility] call to request a verbal order to move patient's PT visit this week to the end of the week per patient request instead of creating a missed visit. Call back number to Any is [phone]. Carol Sosa RN [facility]02-11-2025 NotePatient Outreach (INTMWS) SNEHA CARDENAS ([id number]) 1955 F Date Time Provider Department 08/14/24 JULIO DRAPER During your visit today, we recorded the following information about you: Allergies As of Date: 08/14/2024 Noted Allergy Reaction KEFLEX (CEPHALEXIN) 10/04/2005 5 - Intolerance Comments: Tachycardia, palpitations. VANCOMYCIN 06/07/2024 4 - Hives Date Reviewed: 08/14/2024 Reviewed by: Anushka Alexis LPN - Fully Assessed Visit Diagnosis:Encounter for screening mammogram for breast cancer [Z12.31] Order(s):[facility] SCREENING [facility] MARY [[id number]] Order #: [id number] FUTURE Prescriptions as of 09/14/2024 - alendronate (FOSAMAX) 70 mg tablet Take 1 tablet by mouth one time a week. in the AM with glass of water on empty stomach. Do not take anything else by mouth or lie down for 30 min - Lactobacillus combination no.8 (ADULT PROBIOTIC ORAL) Take 1 capsule by mouth once daily. - knwdervirjr-clvfcvxnn-krziikct (TRELEGY ELLIPTA) 200-62.5-25 mcg inhalation powder Inhale [...] 04/12/2024 Pulmonary emphysema (H (more content not included)...[facility] 08-11-2024 Telephone encounter Note* Telephone Encounter - Magali Casey MA - 08/11/2024 8:24 AM EST Patient was contacted and can take rx Magali Casey MA [facility]02-08-2025 Miscellaneous Notes* Telephone Encounter - Magali Casey MA - 08/11/2024 8:24 AM EST Patient was contacted and can take rx Magali Casey MA * Telephone Encounter - Julio Draper MD - 08/10/2024 5:09 PM EST Yes, she can take Mucinex preparation stated. * Telephone Encounter - Le Aponte RN - 08/10/2024 4:09 PM EST Genna with [facility] Nursing calling. Will continue to see patient 1x/week for 4 more weeks. Pt would like to know if she can continue to take Mucinex;Fast Max liquid OTC medication? Please call nurse Genna back at [phone]. Le Aponte RN documented in this encounterMemorial Health [facility]02-07-2025 Telephone encounter Note * Telephone Encounter - Julio Draper MD - 08/10/2024 5:09 PM EST Yes, she can take Mucinex preparation stated. [facility]02-07-2025 Miscellaneous Notes* Telephone Encounter - Janie Yanes LPN - 08/10/2024 4:56 PM EST Phoned and left message on secure FreeWheelmail for Nell to notify of orders to resume HHC. Janie Yanes LPN * Telephone Encounter - Julio Draper MD - 08/10/2024 4:51 PM EST Okay. Resume HHC Tuesday08/14/24. * Telephone Encounter - Annette Farr LPN - 08/10/2024 11:39 AM EST Nell with [facility] calling to let you know pt is in the hospital and will be d/c today or tomorrow.Asking for verbal orders to do resumption of care on Tuesday with pt for home health. Please advise Nell back. Okay to leave a detailed message. Annette Farr LPN documented in this encounterMemorial Health System [facility]02-07-2025 Telephone encounter Note * Telephone Encounter - Janie Yanes LPN - 08/10/2024 4:56 PM EST Phoned and left message on secure voicemail for Nell to notify of orders to resume HHC. Janie Yanes LPN [facility]02-07-2025 Telephone encounter Note* Telephone Encounter - Julio Draper MD - 08/10/2024 4:51 PM EST Okay. Resume HHC Tuesday08/14/24. [facility]02-07-2025 Telephone encounter Note* Telephone Encounter - Le Aponte RN - 08/10/2024 4:09 PM EST Genna with [facility] Nursing calling. Will continue to see patient 1x/week for 4 more weeks. Pt would like to know if she can continue to take Mucinex;Fast Max liquid OTC medication? Please call nurse Genna back at [phone]. Le Aponte RN [facility]02-07-2025 Telephone encounter Note* Telephone Encounter [...] for outpatient follow up. Abimbola Lewis LPN [facility]02-07-2025 Miscellaneous Notes* Telephone Encounter - Abimbola [...] she had been in and out of [facility] for 3 weeks with RSV. Erin with [facility]. She is calling to make sure this is something that Dr. Nieves would want her to take or if she would want her just to use the nebulizer treatments. She is finally doing better and she just doesn't want to have any set backs. Please review and advise. Annette Gonzalez MA documented in this encounterMemorial Health System [facility]02-07-2025 Telephone encounter Note * Telephone Encounter - Annette Gonzalez MA - 08/10/2024 12:59 PM EST Pt calling in to report that she had been in and out of [facility] for 3 weeks with RSV. Erin with [facility]. She is calling to make sure this is something that Dr. Nieves would want her to take or if she would want her just to use the nebulizer treatments. She is finally doing better and she just doesn't want to have any set backs. Please review and advise. Annette Gonzalez MA [facility]02-07-2025 [facility]02-07-2025 Telephone encounter Note* Telephone Encounter - Annette Farr LPN - 08/10/2024 11:39 AM EST Nell with [facility] calling to let you know pt is in the hospital and will be d/c today or tomorrow.Asking for verbal orders to do resumption of care on Tuesday with pt for home health. Please advise Nell back. Okay to leave a detailed message. Annette Farr LPN [facility]01-30-2025 Telephone encounter Note* Telephone Encounter - Anushka Alexis LPN - 08/02/2024 8:23 AM EST Michele/[facility] Nurse notified of below, going out to the home this morning. Anushka Alexis LPN [facility]01-30-2025 Miscellaneous Notes* Telephone Encounter - Anushka Alexis LPN - 08/02/2024 8:23 AM EST Michele/[facility] Nurse notified of below, going out to the home this morning. Anushka Alexis LPN * Telephone Encounter - Julio Draper MD - 08/01/2024 6:10 PM EST Patient given extra dose of antibiotic yesterday. Continue monitoring for fever or development of new symptoms. * Telephone Encounter - Genna Lowry RN - 08/01/2024 4:43 PM EST Michele from [facility] calls and reports that she just spoke [...] advise, Genna Lowry RN documented in this encounterMemorial Health System [facility]01-29-2025 Telephone encounter Note * Telephone Encounter - uJlio Draper MD - 08/01/2024 6:10 PM EST Patient given extra dose of antibiotic yesterday. Continue monitoring for fever or development of new symptoms. [facility]01-29-2025 Telephone encounter Note* Telephone Encounter - Genna Lowry RN - 08/01/2024 4:43 PM EST Michele from [facility] calls and reports that she just spoke [...] patient already tomorrow. Please review and advise, eGnna Lowry RN [facility]01-28-2025 NoteHNO ID: [id number] Author: JUILO DRAPER MD Service: ? Author Type: Physician Type: Progress Notes Filed: 08/01/2024 00:12 Note Text: This note was created using True Office. Subjective Transitional Care Management Progress Note The [...] tablet by mouth two times a day. wsarvslqce-ptkkugct-kzbyeaqopl (BREZTRI) 160-9-4.8 mcg/actuation HFA aerosol inhaler Inhale [...] 07/31/2024) No current facility (more content not included)...[facility] 07-31-2024 History of Present illness Narrative* Julio [...] tablet by mouth two times a day. zglbdtsocn-rchwmfov-ojkusxgbyf (BREZTRI) 160-9-4.8 mcg/actuation HFA aerosol inhaler Inhale [...] tomorrow. Julio Draper MD documented in this encounterMemorial Health [facility]01-27-2025 Telephone encounter Note * Telephone Encounter - Annette Farr LPN - 07/30/2024 3:54 PM EST Nelson with [facility] , nursing calling with plan of care. [...] you agree with above. Annette Farr LPN [facility]01-27-2025 Miscellaneous Notes* Telephone Encounter - Annette Farr LPN - 07/30/2024 3:54 PM EST Nelson with [facility] , nursing calling with plan of care. [...] above. Annette Farr LPN documented in this encounterMemorial Health [facility]01-24-2025 [facility]01-15-2025 NoteHNO ID: [id number] Author: JULIO DRAPER MD Service: ? Author Type: Physician Type: Progress Notes Filed: 07/18/2024 12:50 Note Text: This note was created using True Office. Subjective Patient presents with: [facility] F/U Sneha Cardenas is a 69 [...] tablet by mouth two times a day. halwblzecy-plwiadqv-yzuthhjoig (BREZTRI) 160-9-4.8 mcg/actuation HFA aerosol inhaler Inhale [...] TABLET 2. Pneumonia due (more content not included)...[facility] 07-18-2024 History of Present illness Narrative* Julio Draper MD - 07/18/2024 11:28 AM EST This note was created using NoteWriter. [...] tablet by mouth two times a day. lxesdwjfrq-sqstroid-iuhhkxqvoq (BREZTRI) 160-9-4.8 mcg/actuation HFA aerosol inhaler Inhale [...] ongoing. Julio Draper MD documented in this encounterMemorial Health [facility]01-10-2025 Telephone encounter Note * Telephone Encounter - Rachel Woodard RN - 07/13/2024 10:16 AM EST Called and left a detailed voicemail notifying Michele nurse with [facility] of providers message. Clinicphone number was left in case she had any questions. Rachel Woodard RN [facility]01-10-2025 Miscellaneous Notes* Telephone Encounter - Rachel Woodard RN - 07/13/2024 10:16 AM EST Called and left a detailed voicemail notifying Michele nurse with [facility] of providers message. Clinicphone number was left in case she had any questions. Rachel Woodard RN * Telephone Encounter - Julio Draper MD - 07/13/2024 10:05 AM EST I agree with POC. * Telephone Encounter - Sarah Peña RN - 07/12/2024 2:48 PM EST Michele nurse with [facility] calling in as pt was discharged from [facility] yesterday for a COPD exacerbation secondary to pneumonia and RSV+. Michele saw patient today for start of care. [...] she does, it is a thick yellow. Michele wants to keep a close eye on pt so nursing will see her 2x per week for 1 weekthen 1x per week for 2 weeks. documented in this encounterMemorial Health System [facility]01-10-2025 Telephone encounter Note * Telephone Encounter - Julio Draper MD - 07/13/2024 10:05 AM EST I agree with POC. [facility]01-09-2025 Telephone encounter Note* Telephone Encounter - Sarah Peña RN - 07/12/2024 2:48 PM EST Michele nurse with [facility] calling in as pt was discharged from [facility] yesterday for a COPD exacerbation secondary to pneumonia and RSV+. Michele saw patient today for start of care. [...] she does, it is a thick yellow. Michele wants to keep a close eye on pt so nursing will see her 2x per week for 1 weekthen 1x per week for 2 weeks. [facility]01-08-2025 [facility]01-06-2025 Telephone encounter Note* Telephone Encounter - Magali Casey MA - 07/09/2024 1:17 PM EST Left detailed message on confidential Magali Casey MA [facility]01-06-2025 Miscellaneous Notes* Telephone Encounter - Magali Casey MA - 07/09/2024 1:17 PM EST Left detailed message on confidential vm Magali Casey MA * Telephone Encounter - Julio Draper MD - 07/09/2024 12:26 PM EST I will follow. * Telephone Encounter - Genna Lowry RN - 07/09/2024 12:12 PM EST Nell from [facility] calls and states that patient is being discharged from [facility] either today or tomorrow with the diagnosis of RSV. Nell asking if provider willing to follow patient with orders for senior care, occupational therapy, and physical therapy. If agreeable please give Nell a call back . Thank you, Genna Lowry RN documented in this encounterMemorial Health System [facility] Memorial [facility] Tele[facility] encounter Note * Telephone Encounter - Julio Draper MD - 07/09/2024 12:26 PM EST I will follow. [facility]01-06-2025 Telephone encounter Note* Telephone Encounter - Genna Lowry RN - 07/09/2024 12:12 PM EST Nell from [facility] calls and states that patient is being discharged from [facility] either today or tomorrow with the diagnosis of RSV. Nell asking if provider willing to follow patient with orders for senior care, occupational therapy, and physical therapy. If agreeable please give Nell a call back . Thank you, Genna Lowry RN [facility]01-05-2025 Evaluation note* Diagnosis Onset Date Resolution [...] on dialysis acute September 20, 2024 10:22am [facility] Work Phone: 1(797) 288-324301-02-2025 NoteHNO ID: [id number] Author: JULIO DRAPER MD Service: ? Author Type: Physician Type: Progress Notes Filed: 07/05/2024 14:13 Note Text: This note was created using [employer]. Subjective Patient presents with: ER F/U Sneha Cardenas is a 69 year old female. [...] tablet by mouth two times a day. rwiwicyahw-xmntwfhx-wrffikwqki (BREZTRI) 160-9-4.8 mcg/actuation HFA aerosol inhaler Inhale [...] 427.31, ICD10: I48.0 - Controlled. Julio Draper [facility]01-02-2025 History of Present illness Narrative* Julio Draper MD - 07/05/2024 1:25 PM EST This note was created using NoteWriter. Subjective Patient presents with: ER F/U Sneha Cardenas is a 69 year old female. [...] tablet by mouth two times a day. ptejcehvvy-zryjytwr-ttywarovnv (BREZTRI) 160-9-4.8 mcg/actuation HFA aerosol inhaler Inhale [...] Controlled. Julio Draper MD documented in this encounterMemorial [facility]12-31-2024 Telephone encounter Note * Telephone Encounter [...] to 83 with activity Protocols used: Breathing Wihxxylbjz-RYRGY-QL [facility]12-31-2024 Miscellaneous Notes* Telephone Encounter - Genna [...] to 83 with activity Protocols used: Breathing Texoiiciwu-HCRQT-RI documented in this encounterMemorial Health [facility]12-13-2024 Telephone encounter Note * Telephone Encounter [...] Angel RN June 15, 2024 1:50 PM [facility]12-13-2024 Miscellaneous Notes* Telephone Encounter - Lorna [...] 15, 2024 1:50 PM documented in this encounterMemorial Health System [facility]12-05-2024 History of Present illness Narrative* Magali Nieves MD - 06/07/2024 1:45 PM EST Images from the original note were not included. . Respiratory [place] Note Patient name: Sneha Cardenas PCP: Julio [...] mid 90s. She was asking about possible [place] valve for her COPD. DATA: Imaging / Diagnostic Studies: DATE OF EXAM: May 10 2024 1:23PM [facility] 0541 - CT CHEST WO IVCON / [...] Benign essential tremor Chronic obstructive pulmonary disease ([facility]) 07/25/2012 Chronic respiratory failure with hypoxia ([facility]) 11/05/2022 Coagulation defect, unspecified ([facility]) 08/25/2023 COPD (chronic obstructive pulmonary disease) ([facility]) 07/25/2012 FEV1 0.84L (32%), 10/18/2014 Coronary artery disease 08/19/2023 DDD (degenerative disc disease), cervical 08/15/2015 Empyema ([facility]) 07/09/2023 Environmental allergies Wheezes with hay or dust ESRD (end stage renal disease) ([facility]) Essential and other specified forms of tremor 11/02/2007 Benign essential -- started primidone 06/03/09, Dr. Nguyễn Essential tremor 11/02/2007 Benign essential -- started primidone 06/03/09, Dr. Nguyễn Gastrointestinal hemorrhage associated with peptic ulcer 08/02/2023 Hemodialysis catheter malfunction ([facility]) 08/19/2023 History of colon polyps 2009 Tubular adenoma. Hypertension Hypoxemia 05/01/2021 Post Covid pneumonia. Irritable bowel syndrome Lung nodule Migraine headache Improved with primidone Multiple duodenal ulcers 06/30/2023 NSTEMI (non-ST elevated myocardial infarction) ([facility]) 07/20/2023 Parapneumonic effusion Pneumonia due to COVID-19 virus 05/01/2021 Pneumonia due to infectious organism 06/30/2023 Pulmonary emphysema ([facility]) 07/19/2023 Scoliosis Shock, septic ([facility]) 07/11/2023 Snoring Tobacco use disorder Quit 03/04/2015. [...] 7 AM, 11 AM and 4 pm) tekaxyyxsp-ksnrymlq-lwhmqawfuo (BREZTRI) 160-9-4.8 mcg/actuation HFA aerosol inhaler Inhale [...] Laterality Date ARTHROPLASTY TOTAL SHOULDER Right 02/2018 [facility]. Garo Stanford MD BREAST BIOPSY Left [...] inhaler therapy -We spoke about criteria for [place] valve. She would need updated full pulmonary [...] hemodialysis -Hemodialysis Tuesday Magali Nieves MD Respiratory [place] documented in this encounterMemorial Health System [facility]12-05-2024 NoteHNO ID: [id number] Author: MAGALI NIEVES MD Service: ? Author Type: Physician Type: Progress Notes Filed: 06/07/2024 15:35 Note Text: . Respiratory [place] Note Patient name: Sneha Cardenas PCP: Julio [...] mid 90s. She was asking about possible [place] valve for her COPD. DATA: Imaging / Diagnostic Studies: DATE OF EXAM: May 10 2024 1:23PM [facility] 0541 - CT CHEST WO IVCON / [...] Benign essential tremor Chronic obstructive pulmonary disease (HCC) 07/25/2012 Chronic respiratory failure with hypoxia (HCC) 11/05/2022 Coagulation defect, unspecified ([facility]) 08/25/2023 COPD (chronic obstructive pulmonary disease) ([facility]) 07/25/2012 FEV1 0.84L (32%), 10/18/2014 Coronary artery disease 08/19/2023 DDD (degenerative disc disease), cervical 08/15/2015 Empyema ([facility]) 07/09/2023 Environmental allergies Wheezes with hay or dust ESRD (end stage renal disease) ([facility]) Essential and other specified forms of tremor 11/02/2007 Benign essential -- started primidone 06/03/09, Dr. Nguyễn Essential tremor 11/02/2007 Benign essential -- started primidone 06/03/09, Dr. Nguyễn Gastrointestinal hemorrhage associated with peptic ulcer 08/02/2023 Hemodialysis catheter malfunction ([facility]) 08/19/2023 History of colon polyps 2009 Tubular adenoma. Hypertension Hypoxemia 05/01/2021 Post Covid pneumonia. Irritable bowel syndrome Lung nodule Migraine headache Improved with primidone Multiple duodenal ulcers 06/30/2023 NSTEMI (non-ST elevated myocardial infarction) ([facility]) 07/20/2023 Parapneumonic effusion Pneumonia due to COVID-19 virus 05/01/2021 Pneumonia due to infectious organism 06/30/2023 Pulmonary emphysema ([facility]) 07/19/2023 Scoliosis Shock, septic ([facility]) 07/11/2023 Snoring Tobacco use disorder Quit 03/04/2015. Unspecified gastritis and gastroduodenitis without mention of hemorrhage 02/09/2010 Small ulcer on EGD 2009 Upper GI bleed 02/09/2010 ALLERGIES Allergen Reactions Keflex [Cephalexin] Intolerance Tachycardia, palpitations. Vancomycin Hives atorvas (more content not included)...[facility]12-03-2024 Note [facility]11-21-2024 Evaluation note* Diagnosis Onset Date Resolution Status Admit Date End-stage renal disease (ESRD) inactive May 24, 2 024 1:27pm End-stage renal disease (ESRD) inactive June 05 8:53am End-stage renal disease (ESRD) inactive June 19, 024 2:19pm Respiratory syncytial virus bronchitis acute [...] on dialysis acute September 06, 2024 7:01am [facility] Work Phone: 1(322) 100-197511-12-2024 NoteHNO ID: [id number] Author: JULIO DRAPER MD Service: ? Author Type: Physician Type: Progress Notes Filed: 05/16/2024 00:46 Note Text: This note was created using [employer]. Subjective Patient presents with: Recheck: 6 months [...] 7 AM, 11 AM and 4 pm fegajvulck-vugdrquh-rowddyazuc (BREZTRI) 160-9-4.8 mcg/actuation HFA aerosol inhaler Inhale [...] agreed to try th (more content not included)...[facility]11-12-2024 History of Present illness Narrative* Julio Draper MD - 05/15/2024 10:05 AM EST This note was created using NoteWriter. Subjective Patient presents with: Recheck: 6 months [...] 7 AM, 11 AM and 4 pm ugcziyeuqi-zjrrcwtp-odhdwpgtyo (BREZTRI) 160-9-4.8 mcg/actuation HFA aerosol inhaler Inhale [...] reason. Julio Draper MD documented in this encounterMemorial Health [facility]11-12-2024 Nurse Note* Magali Casey MA - 05/15/2024 9:52 AM EST [facility]11-12-2024 Nurse Note* Magali Casey MA - 05/15/2024 9:52 AM EST documented in this encounterMemorial Health System [facility]11-07-2024 History of Present illness Narrative* Jacinto [...] PATIENT PRESENTS WITH AN IMPLANTABLE OR ATTACHED NURSE ESTHETICIAN: No RADIOLOGY DEPARTMENT: CT; Exam(s) Completed: Chest PERIPHERAL IV DATA: Not applicable SIGNED BY: RT Burke(Everardo) May 10, 2024 2:31 PM documented in this encounterMemorial Health System [facility]11-07-2024 NoteHNO ID: [id number] Author: JACINTO BLANCHARD RT (R) Service: ? Author Type: Morning Nanny Type: Progress Notes Filed: 05/10/2024 14:31 Note [...] PATIENT PRESENTS WITH AN IMPLANTABLE OR ATTACHED NURSE ESTHETICIAN: No RADIOLOGY DEPARTMENT: CT; Exam(s) Completed: Chest PERIPHERAL IV DATA: Not applicable SIGNED BY: RT Burke(R) May 10, 2024 2:31 [facility]10-14-2024 Telephone encounter Note* Telephone Encounter - Annette Farr LPN - 04/16/2024 3:59 PM EDT Pt called concerned she did not hear from her piano case maker. Pt informed she was just sent a [employer] message with recommendations from Dr. Nieves. Annette Farr LPN [facility]10-14-2024 Miscellaneous Notes* Telephone Encounter - Annette Farr LPN - 04/16/2024 3:59 PM EDT Pt called concerned she did not hear from her piano case maker. Pt informed she was just sent a [employer] message with recommendations from Dr. Nieves. Annette Farr LPN documented in this encounterMemorial Health System [facility]10-14-2024 Telephone encounter Note * Telephone Encounter - Annette Gonzalez MA - 04/16/2024 11:21 AM EDT Pt calling to report that she has been very short of breath x 1 week. ER last Tuesday at [facility] with spasms due to dialysis. She checked out ok. Today she had to do a breathing treatment and then dialysis. Dialysis did not help with the crackling in her chest or SOB. Please review and advise. Annette Gonzalez MA [facility]10-14-2024 Miscellaneous Notes* Telephone Encounter - Annette Gonzalez MA - 04/16/2024 11:21 AM EDT Pt calling to report that she has been very short of breath x 1 week. ER last Tuesday at [facility] with spasms due to dialysis. She checked out ok. Today she had to do a breathing treatment and then dialysis. Dialysis did not help with the crackling in her chest or SOB. Please review and advise. Annette Gonzalez MA documented in this encounterMemorial Health System [facility]10-10-2024 History of Present illness Narrative* Julio [...] discontinued this week, in coordination with her charger operator. Dyspnea was worse and will be evaluated [...] 7 AM, 11 AM and 4 pm vgvjzgvibm-arfetmxa-aeeteyecps (BREZTRI) 160-9-4.8 mcg/actuation HFA aerosol inhaler Inhale [...] off medications. 4. Coronary artery disease involving [place] coronary artery of [place] heart without angina pectoris- ICD9: 414.01, ICD10: I25.10 - Stable. 5. Chronic obstructive pulmonary disease with acute exacerbation (HCC) - ICD9: 491.21, ICD10: J44.1 - Continue current medications. Julio Draper MD documented in this encounterMemorial Health System [facility]09-18-2024 Telephone encounter Note * Telephone Encounter - Grace Gonsalez - 03/21/2024 12:09 PM EDT Patient is calling in asking if this has been sent to the pharmacy yet? Patient is NOW out of medication. Thank you. Grace Pichardo [facility]09-18-2024 Miscellaneous Notes* Telephone Encounter - Grace Gonsalez - 03/21/2024 12:09 PM EDT Patient is calling in asking if this has been sent to the pharmacy yet? Patient is NOW out of medication. Thank you. Grace Pichardo * Telephone Encounter - Ericka Christopher LPN - 03/19/2024 2:59 PM EDT Last saw pcp 11/11/23. Next appt with pcp 05/15/24. * Telephone Encounter - Le Phillips - 03/17/2024 [...] 17, 2024 8:36 AM documented in this encounterMemorial Health System [facility]09-17-2024 Telephone encounter Note * Telephone Encounter [...] 01/30/24. ALL FAXED TO [employer] [phone]. [facility]09-17-2024 Miscellaneous Notes* Telephone Encounter - Ericka [...] 01/30/24. ALL FAXED TO [facility] [employer] [phone]. documented in this encounterMemorial Health System [facility]09-16-2024 Telephone encounter Note * Telephone Encounter - Ericka Christopher LPN - 03/19/2024 2:59 PM EDT Last saw pcp 11/11/23. Next appt with pcp 05/15/24. [facility]09-14-2024 Telephone encounter Note* Telephone Encounter - [...] Le Pichardo March 17, 2024 8:36 AM [facility]09-03-2024 Telephone encounter Note* Telephone Encounter - Ericka Christopher LPN - 03/06/2024 8:51 AM EDT 02/22/24 fax back to [employer] was forms from November. Rec'd from pt new forms. Pcp completed them they have been faxed back to the number on the form. T [facility]09-03-2024 Miscellaneous Notes* Telephone Encounter - Ericka Christopher LPN - 03/06/2024 8:51 AM EDT 02/22/24 fax back to [employer] was forms from November. Rec'd from pt new forms. Pcp completed them they have been faxed back to the number on the form. documented in this encounterMemorial Health System [facility]08-21-2024 Telephone encounter Note * Telephone Encounter - Anushka Alexis LPN - 02/22/2024 2:30 PM EDT [employer] form refaxed. Anushka Alexis LPN [facility]08-21-2024 Miscellaneous Notes* Telephone Encounter - Anushka [...] the correct fax # and gave the [phone] as well.Office Rep requested that we watch both fax numbers for this form. documented in this encounterMemorial Health System [facility]08-21-2024 Telephone encounter Note * Telephone Encounter - Estella Oliva LPN - 02/22/2024 2:05 PM EDT [employer] called, states that a form has been faxed for patient but they have not received it back. Asked for an alternative fax #. Confirmed they had the correct fax # and gave the [phone] as well.Office Rep requested that we watch both fax numbers for this form. [facility]08-19-2024 Nurse Note* Yoana Maldonado RN - 02/20/2024 2:29 PM EDT AMBULATORY [...] REFERRAL (RECOMMENDATION): None Electronically Signed By: Yoana Maldonado RN [facility]08-19-2024 Nurse Note* Yoana Maldonado RN - 02/20/2024 2:29 PM EDT AMBULATORY [...] REFERRAL (RECOMMENDATION): None Electronically Signed By: Yoana Maldonado RN * Asia Rey LPN - 02/20/2024 12:43 PM EDT PRE OP LEARNING ASSESSMENT PROCEDURE/SURGERY: GI PROCEDURES: EGD READINESS TO LEARN COGNITIVE ABILITY: Alert and oriented MOTIVATION TO LEARN: Eager Interested FAMILY SUPPORT: High - Very involved in pt care PATIENT LEARNS BEST BY: Individual Instruction Verbal Instruction FACTORS AFFECTING LEARNING: None PHYSICAL LIMITATIONS AFFECTING LEARNING: None Electronically Signed By: Asia Rey LPN In Department: GASTROENTEROLOGY documented in this encounterMemorial Health System [facility]08-19-2024 NoteQ3 Patient Name: Sneha Cardenas Procedure Date: 02/20/2024 1:23 PM Date of : 1955 Admit Type: Outpatient Age: 68 Gender: Female Note Status: Finalized Attending MD: Dylon Laird MD, [id number] Procedure: Small bowel enteroscopy Indications: Obscure gastrointestinal bleeding Providers: Dylon Laird MD Referring Physician: Ryan Mchugh MD (Referring MD) Medicines: Monitored Anesthesia Care [...] ongoing care. Procedure Code(s): --- Professional --- 56656 Diagnosis Code(s): --- Professional --- K92.2 CPT copyright 2020 [employer]. All rights reserved. Attending Participation: I personally performed the entire procedure. Scope In: 2:01:41 PM Scope Out: 2:11:35 PM MD Dylon Godinez MD 02/20/2024 2:16:18 PM This report has been signed electronically by Dylon Laird MD Number of Addenda: 0 Note Initiated On: 02/20/2024 1:23 [id number] Nurse Note* Asia Rey LPN - 02/20/2024 12:43 PM EDT PRE OP LEARNING ASSESSMENT PROCEDURE/SURGERY: GI PROCEDURES: EGD READINESS TO LEARN COGNITIVE ABILITY: Alert and oriented MOTIVATION TO LEARN: Eager Interested FAMILY SUPPORT: High - Very involved in pt care PATIENT LEARNS BEST BY: Individual Instruction Verbal Instruction FACTORS AFFECTING LEARNING: None PHYSICAL LIMITATIONS AFFECTING LEARNING: None Electronically Signed By: Asia Rey LPN In Department: GASTROENTEROLOGY [facility]08-16-2024 Telephone encounter Note* Telephone Encounter - Abimbola Lewis LPN - 02/17/2024 11:56 AM EDT Patient recently changed insurance and her Trelegy copay went from $50 to $125. Asking if we could substitute Breztri and she believes this will be more cost effective. RX loaded. Abimbola Lewis LPN [facility]08-16-2024 Miscellaneous Notes* Telephone Encounter - Abimbola Lewis LPN - 02/17/2024 11:56 AM EDT Patient recently changed insurance and her Trelegy copay went from $50 to $125. Asking if we could substitute Breztri and she believes this will be more cost effective. RX loaded. Abimbola Lewis LPN documented in this encounterMemorial Health System [facility]08-12-2024 Telephone encounter Note * Telephone Encounter - Erickson Vásquez RN - 02/13/2024 5:05 PM EDT GI Pre-Procedure Spoke with patient: Left message- Attempted to reach the patient at the contact number that they provided [phone] (home) . Unable to speak with patient so without identifying the patient the following information was left on their voice mail: Date of procedure, location and report time Prep instructions A message was left informing the patient/patient contact center representative they must have a responsible adult accompany them to their procedure; and remain in the endoscopy area until they are discharged. Failure to have a responsible adult accompany the patient to their procedure appointment prevents the useof sedation or anesthesia for their procedure; and can result in cancellation of the procedure NPO instructions were reviewed. Number to call with questions or concerns [phone] Erickson Vásquez RN [facility]08-12-2024 Miscellaneous Notes* Telephone Encounter - Erickson Vásquez RN - 02/13/2024 5:05 PM EDT GI Pre-Procedure Spoke with patient: Left message- Attempted to reach the patient at the contact number that they provided [phone] (home) . Unable to speak with patient so without identifying the patient the following information was left on their voice mail: Date of procedure, location and report time Prep instructions A message was left informing the patient/patient contact center representative they must have a responsible adult accompany them to their procedure; and remain in the endoscopy area until they are discharged. Failure to have a responsible adult accompany the patient to their procedure appointment prevents the useof sedation or anesthesia for their procedure; and can result in cancellation of the procedure NPO instructions were reviewed. Number to call with questions or concerns [phone] Erickson Vásquez RN documented in this encounterMemorial Health System [facility]08-08-2024 Telephone encounter Note * Telephone Encounter - Carol Sosa RN - 02/09/2024 10:10 AM EDT Patient calls to let provider's office know that Dr. Mchugh's office will be contacting us to retrieve the Capsule Endoscopy Report completed by Dr. Antunez's office. Notified patient that results were accessible in [facility] but would wait to hear from Dr. Mchugh's office. Carol Sosa RN [facility]08-08-2024 Miscellaneous Notes* Telephone Encounter - Carol Sosa RN - 02/09/2024 10:10 AM EDT Patient calls to let provider's office know that Dr. Mchugh's office will be contacting us to retrieve the Capsule Endoscopy Report completed by Dr. Antunez's office. Notified patient that results were accessible in [facility] but would wait to hear from Dr. Mchugh's office. Carol Sosa RN documented in this encounterMemorial Health System [facility]08-08-2024 Instructions* Patient Instructions* Ryan Mchugh MD - 02/09/2024 10:09 AM EDT Images [...] If you do not have a responsible swing driver (family member or friend) withyou to take you home, your exam cannot be done with sedation and will be cancelled. Please bring a list of all of your current medications, including any Ihgj-rcm-Rucpbop medications with you. Medications If you take [...] your exam. 2 06/2019 documented in this encounterMemorial Health System [facility]08-08-2024 History of Present illness Narrative* Ryan Mchugh MD - 02/09/2024 9:47 AM EDT Virtual visit, 20 minutes, patient agreed I have communicated my name and active licensure. The patient's identity and physical location wereverified at the time of this visit. Either the patient or their legal contact center representative has been informed of the risks [...] will order an antegrade balloon endoscopy. Ryan Mchugh MD Answers submitted by the patient for [...] floating with oil: No documented in this encounterMemorial Health System [facility]07-30-2024 Telephone encounter Note * Telephone Encounter - Franky Muro MA - 01/31/2024 7:53 AM EDT Fax stamp on form notes this was done 01/29. [facility]07-30-2024 Miscellaneous Notes* Telephone Encounter - Franky Muro MA - 01/31/2024 7:53 AM EDT Fax stamp on form notes this was done 01/29. * Telephone Encounter - Michelle Griffin LPN - 01/24/2024 4:07 PM EDT Patient calling the fax is going to [employer], if you do not have the number can not get it. Asked if they could just fax it to [phone]. She will try to tell them to do that or might have tohave it sent to her email and she upload it to her my chart. * Telephone Encounter - Ericka Christopher LPN - 01/16/2024 4:01 PM EDT Called them back at 140 pm. They were to fax this again. * Telephone Encounter - Allison Peterson, RN - 01/13/2024 9:24 AM EDT Fadumo, from [employer], phoned to verify pcp fax number. Confirmed. Reports she is faxing formsto pcp today, and they can only be filled out by doctor. documented in this encounterMemorial Health System [facility]07-23-2024 Telephone encounter Note * Telephone Encounter - Michelle Griffin LPN - 01/24/2024 4:07 PM EDT Patient calling the fax is going to [employer], if you do not have the number can not get it. Asked if they could just fax it to [phone]. She will try to tell them to do that or might have tohave it sent to her email and she upload it to her my chart. [facility]07-15-2024 Telephone encounter Note* Telephone Encounter - Ericka Christopher LPN - 01/16/2024 4:01 PM EDT Called them back at 140 pm. They were to fax this again. [facility]07-15-2024 Telephone encounter Note* Telephone Encounter - Ericka Christopher LPN - 01/16/2024 1:46 PM EDT Called release point from other encounter. Still nothing rec'd. They say they will fax again. Fax number was verified. [facility]07-15-2024 Miscellaneous Notes* Telephone Encounter - Ericka [...] We received a Capsule Endoscopy Report from [facility] in [place]. Communicationshave been uploaded to the patients chart. Bette Amaya * Telephone Encounter - Ericka Christopher LPN - 01/12/2024 2:40 PM EDT Not that I'm aware of. To pcp to see if he has rec'd any. * Telephone Encounter - Saumya Sheth RN - 01/11/2024 2:43 PM EDT Patient calling to ask if PCP has received Disability Usp forms? She says they were sent about one week ago. Saumya Sheth, JAMI documented in this encounterMemorial [facility]07[facility] Telephone encounter Note * Telephone Encounter - Ericka Christopher LPN - 01/13/2024 1:23 PM EDT Here's another encounter from release [facility]. Forms are coming today. Nothing rec'd at this time. [facility]07-12-2024 Telephone encounter Note* Telephone Encounter - Julio Draper MD - 01/13/2024 12:53 PM EDT I am not aware of any newer disability forms. [facility]07-12-2024 Telephone encounter Note* Telephone Encounter - Allison Peterson RN - 01/13/2024 9:24 AM EDT Fadumo, from [employer], phoned to verify pcp fax number. Confirmed. Reports she is faxing formsto pcp today, and they can only be filled out by doctor. [facility]07-11-2024 Telephone encounter Note* Telephone Encounter - Bette Segura - 01/12/2024 4:19 PM EDT We received a Capsule Endoscopy Report from [facility] in [place]. Communicationshave been uploaded to the patients chart. Bette Amaya [facility]07-11-2024 Telephone encounter Note* Telephone Encounter - Ericka Christopher LPN - 01/12/2024 2:40 PM EDT Not that I'm aware of. To pcp to see if he has rec'd any. [facility]07-10-2024 Telephone encounter Note* Telephone Encounter - Saumya Sheth RN - 01/11/2024 2:43 PM EDT Patient calling to ask if PCP has received Disability Usp forms? She says they were sent about one week ago. Saumya Sheth RN [facility]06-14-2024 Telephone encounter Note* Telephone Encounter - [...] Griffin LPN December 16, 2023 2:31 PM [facility]06-14-2024 Miscellaneous Notes* Telephone Encounter - Michelle [...] 16, 2023 2:31 PM documented in this encounterMemorial Health [facility]05-13-2024 Telephone encounter Note * Telephone Encounter - Ericka Christopher LPN - 11/14/2023 12:31 PM EDT Pcp completed forms from [employer]. They have been faxed back to number on the form [facility]05-13-2024 Miscellaneous Notes* Telephone Encounter - Ericka Christopher LPN - 11/14/2023 12:31 PM EDT Pcp completed forms from [employer]. They have been faxed back to number on the form documented in this encounterMemorial Health [facility]05-10[facility] History of Present illness Narrative* Julio Draper MD - 11/11/2023 3:25 PM EDT This note was created using [employer]. Subjective Patient presents with: Yearly Exam Sneha [...] to work. Other specialists: Dr. Vonnie Antunez: camp coordinator. Dr. Jane Neives: pulmonary. Dr. Steven Lawson: nephrology. Dr. Jodi [...] HISTORY Diagnosis Date EARNEST (acute kidney injury) ([facility]) EARNEST (acute kidney injury) ([facility]) Anemia requiring transfusions 06/15/2023 Antibiotic-associated diarrhea 07/14/2023 Asthma Benign essential tremor COPD (chronic obstructive pulmonary disease) ([facility]) 07/25/2012 FEV1 0.84L (32%), 10/18/2014 Coronary artery disease 08/19/2023 DDD (degenerative disc disease), cervical 08/15/2015 Empyema ([facility]) 07/09/2023 Environmental allergies Wheezes with hay or dust ESRD (end stage renal disease) ([facility]) Essential and other specified forms of tremor 11/02/2007 Benign essential -- started primidone 06/03/09, Dr. Nguyễn History of colon polyps 2009 Tubular adenoma. Hypertension Hypoxemia 05/01/2021 Post Covid pneumonia. Irritable bowel syndrome Lung nodule Migraine headache Improved with primidone Multiple duodenal ulcers 06/30/2023 NSTEMI (non-ST elevated myocardial infarction) ([facility]) 07/20/2023 Parapneumonic effusion Pneumonia due to COVID-19 virus 05/01/2021 Scoliosis Shock, septic ([facility]) 07/11/2023 Snoring Tobacco use disorder Quit 03/04/2015. Unspecified gastritis and gastroduodenitis without mention of hemorrhage 02/09/2010 Small ulcer on EGD 2009 PAST SURGICAL HISTORY Procedure Laterality Date ARTHROPLASTY TOTAL SHOULDER Right 02/2018 [facility]. Garo Stanford MD BREAST BIOPSY Left [...] hours as needed for wheezing/shortness of breath. kfimplsxqvm-zdjxqycxj-mxtktdrz (TRELEGY ELLIPTA) 100-62.5-25 mcg inhalation powder Inhale [...] recommended. She will see Dr. Fernandez in [place]. - She declined vaccine recommendations. - She [...] D68.9 Stable. 6. Coronary artery disease involving [place] coronary artery of [place] heart without angina pectoris- ICD9: 414.01, ICD10: I25.10 Stable. 7. Essential tremor - ICD9: 333.1, ICD10: G25.0 Stable. 8. Anemia requiring transfusions - ICD9: 285.9, ICD10: D64.9 Reported to be improved from last value on record here. 9. Pleural effusion - ICD9: 511.9, ICD10: J90 Resolving. Julio Draper MD documented in this encounterMemorial Health [facility]05-07-2024 History of Present illness Narrative* Luna Swartz PA-C - 11/08/2023 2:30 PM EDT Patient: Sneha Cardenas PCP: Julio Draper MD CC: follow up HPI: Sneha Cardenas 68 year old female former less than 64-dhuj-wbhb smoker with PMH significant for essential tremor, HTN, COVID-pneumonia 04/2021, chronic hypoxemic respiratory failure, paroxysmal atrial fibrillation (not anticoagulated due to GIB), NSTEMI with mild to moderate coronary artery d iseason on heart cath, ESRD on HD, severe COPD/emphysema, persistent groundglass opacities on chestimaging following pna in August 2023. Patient was admitted to [facility] in July with abdominal pain,nausea and vomiting. KUB pertinent for right-sided pleural effusion. She underwent thoracentesis which was concerning for possible empyema and thus transferred to [facility] for possible thoracic surgical intervention. CT placed [...] disease) (HCC) 07/25/2012 FEV1 0.84L (32%), 10/18/2014 Coronary artery disease 08/19/2023 DDD (degenerative disc disease), cervical 08/15/2015 Empyema ([facility]) 07/09/2023 Environmental allergies Wheezes with hay or dust ESRD (end stage renal disease) ([facility]) Essential and other specified forms of tremor 11/02/2007 Benign essential -- started primidone 06/03/09, Dr. Nguyễn History of colon polyps 2009 Tubular adenoma. Hypertension Hypoxemia 05/01/2021 Post Covid pneumonia. Irritable bowel syndrome Lung nodule Migraine headache Improved with primidone Multiple duodenal ulcers 06/30/2023 NSTEMI (non-ST elevated myocardial infarction) ([facility]) 07/20/2023 Parapneumonic effusion Pneumonia due to COVID-19 virus 05/01/2021 Scoliosis Shock, septic ([facility]) 07/11/2023 Snoring Tobacco use disorder Quit 03/04/2015. [...] hours as needed for wheezing/shortness of breath. skqkwlfkufq-hamjjckbn-ugodyhha (TRELEGY ELLIPTA) 100-62.5-25 mcg inhalation powder Inhale [...] Laterality Date ARTHROPLASTY TOTAL SHOULDER Right 02/2018 [facility]. Garo Stanford MD BREAST BIOPSY Left [...] in EMR. IMMUNIZATIONS Prevnar - 11/2022 Pneumovax 2021 Influenza - xx COVID-19 - most [...] DATE OF EXAM: Nov 03 2023 8:39AM [facility] 0541 - CT CHEST WO IVCON / [...] necessary. Luna Swartz PA-C documented in this encounterMemorial Health [facility]05-02-2024 History of Present illness Narrative* Jacinto [...] PATIENT PRESENTS WITH AN IMPLANTABLE OR ATTACHED NURSE ESTHETICIAN: No RADIOLOGY DEPARTMENT: CT; Exam(s) Completed: Chest PERIPHERAL IV DATA: Not applicable SIGNED BY: RT Burke(R) November 03, 2023 8:37 AM documented in this encounterMemorial Health [facility]05-01-2024 Telephone encounter Note * Telephone Encounter - Julio Draper MD - 11/02/2023 12:33 AM EDT This was completed. [facility]05-01-2024 Miscellaneous Notes* Telephone Encounter - Julio Draper MD - 11/02/2023 12:33 AM EDT This was completed. * Telephone Encounter - Ericka Christopher LPN - 10/25/2023 3:39 PM EDT Fax rec'd from [facility] Form is called leave as an accommodation medical certification. Called pt and she says she has not returned to work. (She is doubtful she can.) She is going to dialysis 3 times a week. Mon,Wed and fri for 3.5 hours a day. She is very exhausted with this. She also notes the short term disability ended in Aug. She suspected half-way disability will be coming. (FYI). documented in this encounterMemorial Health [facility]04-29-2024 History of Present illness Narrative* Alva [...] PATIENT PRESENTS WITH AN IMPLANTABLE OR ATTACHED NURSE ESTHETICIAN: No RADIOLOGY DEPARTMENT: General X-ray: Exam(s) Completed: Chest X-Ray PERIPHERAL IV DATA: Not applicable SIGNED BY: RT Randolph(R) October 31, 2023 6:15 PM documented in this encounterMemorial Health [facility]04-29-2024 Instructions* Patient Instructions* Julio Draper MD - 10/31/2023 6:09 PM EDT NO ZOFRAN WHILE ON ANTIBIOTIC. documented in this encounterMemorial Health System [facility]04-29-2024 History of Present illness Narrative* Julio Draper MD - 10/31/2023 5:54 PM EDT This note was created using [employer]. Subjective Sneha Cardenas is a 68 year [...] hours as needed for wheezing/shortness of breath. rlrycepomhd-ixxggpkmx-hdywbjnx (TRELEGY ELLIPTA) 100-62.5-25 mcg inhalation powder Inhale [...] needed. Julio Draper MD documented in this encounterMemorial Health [facility]04-29-2024 Telephone encounter Note * Telephone Encounter [...] 12. TRAVEL:No Protocols used: Cough - Acute Osj-Lsqxwqsyzj-JTBIP-AH [facility]04-29-2024 Miscellaneous Notes* Telephone Encounter - Carol [...] 12. TRAVEL:No Protocols used: Cough - Acute Phq-Shvetwfjay-PQENM-AH documented in this encounterMemorial Health [facility]04-23-2024 Telephone encounter Note * Telephone Encounter - Ericka Christopher LPN - 10/25/2023 3:39 PM EDT Fax rec'd from [facility] Form is called leave as an accommodation medical certification. Called pt and she says she has not returned to work. (She is doubtful she can.) She is going to dialysis 3 times a week. Mon,Wed and fri for 3.5 hours a day. She is very exhausted with this. She also notes the short term disability ended in Aug. She suspected half-way disability will be coming. (FYI). [facility]04-08-2024 History of Present illness Narrative* Aria Rebolledo - 10/10/2023 11:55 AM EDT Contacted patient, she is scheduled to see Dr. Antunez @ [facility] in November She had her Scopes done with him previously and is planning to use him again. Aria Rebolledo * Tabatha Tilley, JAMI - 10/10/2023 7:05 AM EDT COLONOSCOPY PATIENT OUTREACH Action/FYI Colonoscopy Recall Patient identified by Name and : Yes. --- OUTREACH OUTCOME ACTION: Consult- Telephone Call- Pt is overdue for screening colonoscopy. Pt needs consult due to medical history and/or medications. Please call patient and schedule appointment with General Surgery Provider. No prior endoscopy noted. Tabatha Tilley, RN documented in this encounterMemorial Health [facility]03-22-2024 Miscellaneous Notes* Telephone Encounter - Janie [...] Thank you. Lucrecia Lee. documented in this encounterMemorial Health [facility]03-18-2024 Miscellaneous Notes* Telephone Encounter - Franky [...] patient. Any Pichardo \ documented in this encounterMemorial Health System [facility]03-14-2024 Miscellaneous Notes* Telephone Encounter - Allison Peterson RN - 09/15/2023 2:26 PM EDT Notified patient. * Telephone Encounter - Jluio Draper MD - 09/15/2023 1:21 PM EDT [...] 2:35 PM EDT Carlos A nurse from [facility] HH calling in as he did his [...] order refills? Pt is set up with [facility] but they are double checking [...] have been approved. Her phone # is [phone] documented in this encounterMemorial Health [facility]03-06-2024 Miscellaneous Notes* Telephone Encounter - Julio Draper MD - 09/07/2023 9:01 AM EST Noted. * Telephone Encounter - Carol Sosa RN - 09/06/2023 2:11 PM EST Nelson RN with [facility] calls to give further update on patient. [...] Zofran that was previously ordered by Dr. Nieves. Pended. Carol Sosa RN * Telephone Encounter - Genna Lowry RN - 09/06/2023 10:45 AM EST Twyla PIZARRO from [facility] calls to report that patient had reported [...] O2 Genna Lowry RN documented in this encounterMemorial Health [facility]03-02-2024 Miscellaneous Notes* Telephone Encounter - Aliya Dahl MD - 09/03/2023 8:46 AM EST 09/02/2023--7:22pm--call from [facility]. Pt called because she has mild pedal edema. Had dialysis today and usu edema is gone. She is not SOB and feels fine overall. Does not want to go to ER. Home care will send a nurse out on 09/03/23 to assess her. Aliya Dahl MD documented in this encounterMemorial Health [facility]02-28-2024 Miscellaneous Notes* Telephone Encounter - Saumya Sheth RN - 08/31/2023 1:33 PM EST Left provider message with verbal okay on secure voice mail for Milena NAE @ [facility]. Saumya Sheth RN * Telephone Encounter - Julio Draper MD - 08/31/2023 12:59 PM EST Okay. * Telephone Encounter - Genna Lowry RN - 08/31/2023 8:29 AM EST [place] SONI from [facility] calls to report that social work visited patient and patient was reporting to them increased depression/anxiety. [place] asking for verbal order for SW to visit patient again next week. Please review and advise, Genna Lowry RN documented in this encounterMemorial Health [facility]02-28-2024 Miscellaneous Notes* Telephone Encounter - Ericka Christopher LPN - 08/31/2023 8:48 AM EST Order faxed to [facility] transfusion center. Pt notified. * Telephone Encounter [...] transfusion two units PRBC. documented in this encounterMemorial Health System [facility]02-22-2024 History of Present illness Narrative* Anushka [...] PM EST This note was created using [employer]. Subjective Patient presents with: Hospital F/U Sneha Cardenas is a 68 year old female. She had been in and out of hospitals due to complicated and critical illness. She was recently again in [facility] for clogged dialysis catheter. She was now back home with Home Health, PT, OT, ST. She was finishing levofloxacin for pneumonia. She wantedher anemia rechecked, since she had no access to labs at dialysis center. She had dysphagia, and atorvastatin 80 mg was difficult to swallow, even with applesauce. She was supposed to follow up with cardiology in [place], but preferred local referrals. She started dialysis locally but had no local manager of production. She will see pulmonary here in November. [...] Hypoxia (Hcc) Duodenal Ulcer Paroxysmal Atrial Fibrillation ([facility]) Pneumonia Due to Infectious Organism Anemia Requiring Transfusions Dysphagia Antibiotic-Associated Diarrhea Pulmonary Emphysema (Hcc) Former Smoker Nstemi (Non-St Elevated Myocardial Infarction) ([facility]) History of GI Bleed History of Copd Pleural Effusion Malnutrition of Mild Degree (Hcc) Esrd (End Stage Renal Disease) ([facility]) Gastrointestinal Hemorrhage Associated With Peptic Ulcer Volume Overload Hemodialysis Catheter Malfunction (Hcc) Coronary Artery Disease Coagulation Defect, Unspecified ([facility]) Social History Tobacco Use Smoking status: Former [...] every 8 hours as needed for nausea/vomiting. pcfsjthxwpf-fthjobvvo-vhhvbcfd (TRELEGY ELLIPTA) 100-62.5-25 mcg inhalation powder Inhale [...] pulmonary. 2. ESRD (end stage renal disease) (HCC) - ICD9: 585.6, ICD10: N18.6 - CONSULT TO NEPHROLOGY. Local per patient preference. 3. Malnutrition of mild degree (HCC) - ICD9: 263.1, ICD10: E44.1 Monitor. 4. [...] Antunez 7. NSTEMI (non-ST elevated myocardial infarction) (HCC) - ICD9: 410.70, ICD10: I21.4 Heart Group [...] dysphagia. Julio Draper MD documented in this encounterMemorial Health System [facility]02-20-2024 Miscellaneous Notes* Telephone Encounter - Julio Draper MD - 08/23/2023 12:58 PM EST Okay. * Telephone Encounter - Michelle Griffin LPN - 08/23/2023 11:26 AM EST Blaire from [facility] Home Health calling with OT plan of care, 2 visits weekly for 4 weeks working on ADL's, strength and transfers. No need for call back. documented in this encounterMemorial Health System [facility]02-20-2024 Miscellaneous Notes* Telephone Encounter - Anushka Alexis LPN - 08/23/2023 9:14 AM EST Below response left on confidential vm. Anushka Alexis LPN * Telephone Encounter - Tasha Laureano APRN.HEAD SAWYER - 08/23/2023 8:37 AM EST Okay for social work consult Tasha Laureano APRN.HEAD SAWYER * Telephone Encounter - Allison Peterson, RN - 08/22/2023 8:36 AM EST Genoveva- [facility]- reports she saw patient on Tuesday for resumption of care. Pt was d/c'd from [facility] on Tue. Dx: dialysis cath replaced, pneumonia. HH plans to see pt 2 x week for 1 week, then 1 x weekfor 3 weeks. Asking for verbal order for medical SW to see pt for high depression screen and anxiety. Reports pt has been in the hospital several times in the past month and was prescribed an AB for sepsis. After this went into kidney failure and with dialysis. Reports [facility] wrote consult for patientto see a charger operator in [place]. Pt does not want to travel and would like to see a charger operator in [place]. Advised pcp could write a referral but [...] Please phone Genoveva with verbal for SW: [phone] documented in this encounterMemorial Health [facility]02-19-2024 Miscellaneous Notes* Telephone Encounter - Julio Draper MD - 08/22/2023 5:06 PM EST Okay. * Telephone Encounter - Genna Lowry RN - 08/22/2023 1:33 PM EST Luna PT calling from [facility] to report plan of care for patient and physical therapy will visit patient 3 times a week for 2 weeks and 2 times a week for 2 weeks. Physical therapy will work with patient on gait, transfers, strengthening, and fall prevention. No Call back Needed Genna Lowry RN documented in this encounterMemorial Health [facility]02-19-2024 History of Present illness Narrative* Genna Elizabeth, [facility] - 08/22/2023 7:11 AM EST TRANSITION CARE MANAGEMENT (TCM) PHARMACY CONTACT Provider Action/FYI: Unable to reach patient after unsuccessful outreach attempt. Left voicemail for patient including call back number to TCM pharmacist. TCM medication reconciliation incomplete at this time Patient unable to be reached after unsuccessful outreach attempt(s). No further attempts to contactpatient will be made. SUMMARY: -Pt discharged from [facility] on 08/19/23. -Medication review not done History [...] nostril once daily. Rinse mouth after use. fqqwutwqxdg-fmjhujnlp-ekauocqa (TRELEGY ELLIPTA) 100-62.5-25 mcg inhalation powder Inhale [...] 11 AM and 4 pm Preferred pharmacy: [facility] [place] [address] - [address] [phone] [address] [place] [address] Estimated Creatinine Clearance: 7.6 mL/min (A) (based on SCr of 6.18 mg/dL (H)). Estimated Glomerular Filtration Rate (mL/min/1.73m ) Date Value 08/18/2023 7 (L) eGFR- (no units) Date Value 04/05/2020 >60 Additional follow up: Next 5 Appointments Date and Time Provider Department Dept Phone 10/24/2023 3:[address] [facility] (I-STAT) RADIO CT SCAN [facility] [phone] 11/08/2023 2:30 PM Luna Swartz [facility] [phone] 11/11/2023 3:20 PM Julio Draper [facility] [phone] Interventions Made: None Pharmacist Recommendations Made None Care Coordination: None at this time Time spent on patient: 0-15 minutes Genna Elizabeth RPh August 22, 2023 7:11 AM documented in this encounterMemorial Health System [facility]02-13-2024 History of Present illness Narrative* Magali Nieves MD - 08/16/2023 1:30 PM EST Images from the original note were not included. . Respiratory [place] Note Patient name: Sneha Cardenas PCP: Julio Draper MD CC: Hospital follow-up HPI: Sneha Cardenas 68 year old female former less than 52-ptsb-peyv smoker with PMH significant for essential tremor, HTN, COVID-pneumonia 04/2021, chronic hypoxemic respiratory failure, paroxysmal atrial fibrillation (not anticoagulated due to GIB), severe COPD/emphysema, groundglass opacities on chest imaging last seen in pulmonary clinic in February for abnormal chest imaging following hospitalization for pneumonia. She was admitted to [facility] with abdominal pain, nausea and vomiting. KUB pertinent for right-sided pleural effusion. She underwent thoracentesis which was concerning for possible empyema and thus transferred to [facility] for possible thoracic surgical intervention. She had [...] normal coronary anatomy. She was transferred to [facility] for rehabil itation but patient was only [...] Reviewed EMR from recent hospital stay at [facility] and [facility] with details in HPI Labs: Component Ref [...] BF 18 - 36 % 2 Low [place]%, BF % 4 Macro%, BF 64 - 80 % 1 Low FINAL DIAGNOSIS A - PLEURAL FLUID. Negative for malignant cells. Histiocytes and mesothelial cells. Culture No growth 5 days Smear Result No organisms seen Many Polymorphonuclear leukocytes Gram stain performed on cytospun specimen. Imaging / Diagnostic Studies: DATE OF EXAM: Jul 23 2023 7:40PM [facility] 0540 - CT CHEST W IVCON PE [...] lobe bronchial wall thickening. Trace left and yepig-mm-zalrglcz right pleural effusion. Mild calcified pleural plaques. [...] essential tremor COPD (chronic obstructive pulmonary disease) ([facility]) 07/25/2012 FEV1 0.84L (32%), 10/18/2014 DDD (degenerative [...] ulcers 06/30/2023 NSTEMI (non-ST elevated myocardial infarction) ([facility]) 07/20/2023 Pneumonia due to COVID-19 virus 05/01/2021 [...] every 8 hours as needed for nausea/vomiting. ryvclnjwqqu-cpjuyelyx-fiqmzzvd (TRELEGY ELLIPTA) 100-62.5-25 mcg inhalation powder Inhale [...] Laterality Date ARTHROPLASTY TOTAL SHOULDER Right 02/2018 [facility]. Garo Stanford MD BREAST BIOPSY Left [...] which included preparing to see the patient, usmm-it-xjcv patient care, completing clinical documentation, obtaining and/or [...] hour 4 minutes Magali Nieves MD [facility] [place] documented in this encounterMemorial Health System [facility]02-12-2024 Miscellaneous Notes* Telephone Encounter - Saumya Sheth RN - 08/15/2023 3:14 PM EST nurse Carlos A @ [facility] calling to let PCP know nursing saw patient today for resumption of care. Nursing will see patient 2 x/week for two weeks and 1 x/week for one week for disease and medication education. She has been started on dialysis. She has had some swallowing issues and has a referral to Speech Therapy per [facility]. She has a Discharge f/u scheduled with PCP on 08/18/23. No call back needed. Saumya Sheth RN documented in this encounterMemorial [facility]02-12-2024 Miscellaneous Notes* Telephone Encounter - Abimbola Lewis LPN - 08/15/2023 1:37 PM EST Faxed to [facility]. Abimbola Lewis LPN * Telephone Encounter - Nadege Ruelas RN - 08/15/2023 9:53 AM EST [facility] called. States the patient would like to go back on tanks. Please send order. documented in this encounterMemorial [facility]02-09-2024 History of Present illness Narrative* Rafael Serna MD - 08/12/2023 1:49 PM EST Subsequent visit yesterday documented in this encounterSAdams County Regional Medical [id number] Miscellaneous Notes* Telephone Encounter - Tonya Ontiveros - 08/10/2023 8:07 AM ESTSummary: New patient information Patient is scheduled with you NEW for COPD on 08/16/23. Hospital follow up requested a CT chest in 3-6 months from 08/01/23. For your information. Tonya Ontiveros documented in this encounterMemorial Health [facility]02-06-2024 Miscellaneous Notes* Telephone Encounter - Ericka Christopher LPN - 08/09/2023 1:31 PM EST Faxed to number on the form. * Telephone Encounter - Julio Draper MD - 08/09/2023 1:16 PM EST Completed best as I could. Patient in acute rehab facility in [place]. * Telephone Encounter - Ericka Christopher LPN [...] Draper. Franky Muro Ma documented in this encounterMemorial [facility]02-06-2024 Miscellaneous Notes* Telephone Encounter - Chris Samaniego - 08/09/2023 10:34 AM ESTSummary: appt/ f/u I called pt to schedule Hospital f/u appointment she is still in hospital. Can't schedule. Chris Samaniego August 09, 2023 10:41 AM documented in this encounterMemorial Health [facility]02-02-2024 Miscellaneous Notes* Telephone Encounter - Haryr Espinoza APRN.MARIAN - 08/05/2023 3:46 PM EST Patient seen in hospital for Chest pain. Please make a hospital follow up appointment to be seen by Dr. Rock or Nurse practitioner in 6-8 weeks. Thank you, Harry Espinoza APRN.HEAD SAWYER documented in this encounterMemorial [facility]01-21-2024 History of Past illness Narrative* Problem [...] of this encounter (statuses as of 08/25/2023) [facility] History of Past illness Narrative* Problem [...] of this encounter (statuses as of 08/25/2023) [facility] History of Past illness Narrative* Problem [...] of this encounter (statuses as of 09/01/2023) [facility] History of Past illness Narrative* Problem [...] of this encounter (statuses as of 09/01/2023) [facility] History of Past illness Narrative* Problem [...] of this encounter (statuses as of 09/04/2023) [facility] History of Past illness Narrative* Problem [...] of this encounter (statuses as of 09/07/2023) [facility] History of Past illness Narrative* Problem [...] of this encounter (statuses as of 09/12/2023) [facility] History of Past illness Narrative* Problem [...] of this encounter (statuses as of 09/14/2023) [facility] History of Past illness Narrative* Problem [...] of this encounter (statuses as of 09/15/2023) [facility] History of Past illness Narrative* Problem [...] of this encounter (statuses as of 09/19/2023) [facility] History of Past illness Narrative* Problem [...] of this encounter (statuses as of 09/23/2023) [facility] History of Past illness Narrative* Problem Noted Date Diagnosed Date Resolved Date Acute respiratory failure with hypoxia 07/24/2023 08/25/2023 EARNEST (acute kidney injury) 07/20/2023 Elevated troponin 07/20/2023 08/25/2023 Shock, septic 07/11/2023 08/25/2023 Acute on chronic hypoxic respiratory failure 4 08/25/2023 Empyema 07/09/2023 08/25/2023 Elevated blood pressure [...] of this encounter (statuses as of 10/10/2023) [facility]01-05-[facility]24 Consult note Author Pao Weeks [facility] July 08, 2023 2:46pm Note Date/Time July 08, 2023 2: 37pm [facility] Medical Records Department [address] [address] Consultation - Cardiac Cath Rn 07/08/23 1427 MR#: [id number] Acct: [id number] Name: SNEHA CARDENAS Rep #:[id number] : 1955 68 From: Pao Mckeon PCP: Dr. Julio Draper MD Status:A DM IN Location: [facility] WUN506- 1 Assessment & Plan Assessment/Plan (1) Empyema [...] couldonly drain 100 cc of cloudy fluid. [facility] Medical History (Updated 07/08/23 @ 14:35 by [...] 85.0 H, Lymph % (Auto) 6.3 L, [place] % (Auto) 7.4, Eos % (Auto) 0.1, [...] to follow Charges/Coding Visit Charges Inpatient E&M: 53280 Init Hosp L3 07/08/23 1798 <Electronically signed by Pao Weeks MD> Cosigner Signature (if applicable): CC: ALFRED Jovel; Dr. Kapil Doyle MD; Dr. Adrian Nieves DO; Dr. Pao Weeks MD; Dr. Chris Shepard MD; Dr. Diana Santillan MD; Dr. Ford Graff MD; Dr. Julio Draper MD~ Signed [facility] Work Phone: 1(706) 475-306901-05-2024 Progress note Author Edis Mayo [facility] July 08, 2023 10:29am Note Date/Time July 08, 2023 8: 31am [facility] Medical Records Department [address] [place] [address] Progress Note - Hospitalist 07/08/23830 MR#: [id number] Acct: [id number] Name: SNEHA CARDENAS Rep #:[id number] : 1955 68 From: Edis Mayo MD PCP: Dr. Julio Draper MD Status:A DM IN Location: [place] [address] Reason for Visit Reason for Visit: Diagnoses [...] 80.3 H, Lymph % (Auto) 9.3 L, [place] % (Auto) 9.5, Eos % (Auto) 0.1, [...] 85.0 H, Lymph % (Auto) 6.3 L, [place] % (Auto) 7.4, Eos % (Auto) 0.1, [...] made for patient to be transferred to [facility] for CT surgery eval 1. Acute on chronic empyema ? Patient underwent thoracocentesis during her recent hospitalization consistentwith empyema. Presented back with progressive shortness of breath. Pulmonary medicine consulted recommended for patient to be transferred to [facility] for cardiothoracic surgery evaluation. Patient has been accepted for transfer at [facility]. Patient was started on broad-spectrumantibiotic therapy [...] 50 Minutes Charges/Coding Visit Charges Inpatient E&M: 15386 Subs Hosp L3 07/08/23 1029 <Electronically signed by Edis Mayo MD> Cosigner Signature (if applicable): CC: ~ Signed [facility] Work Phone: 1(692) 732-284801-04-2024 History and physical note Author Diana Santillan [facility] July 07, 2023 9:12pm Note Date/Time July 07, 2023 5: 28pm [facility] Medical Records Department [address] [place] [address] H&P Exam - Hospitalist 07/07/23 1721 MR#: [id number] Acct: [id number] Name: SNEHA CARDENAS Rep #:[id number] : 1955 68 From: Diana Santillan MD PCP: Dr. Julio Draper MD Status:A DM IN Location: [address] General Date of Admission: 07/07/23 Date of Service: 07/07/23 Chief Complaint: SOB, hypoxia, n/v HPI Narrative SNEHA CARDENAS, is a 68 F with history of COPD, GERD/duodenal ulcers, paroxysmalatrial fibrillation, anxiety who presented to [facility] 07/07/2023 with nausea and vomiting and upper [...] with lab studies consistent with empyema. Her piano case maker was contacted by ED and it was recommended patient be transferred for CT surgery, she was accepted at [facility] however no bedsat present so hospitalist contacted [...] Patient agreeable to admission while pending transfer. [facility] Medical History (Updated 07/07/23 @ 21:10 by [...] 80.3 H, Lymph % (Auto) 9.3 L, [place] % (Auto) 9.5, Eos % (Auto) 0.1, [...] suggestive of empyema -Patient awaiting bed at [facility] -[facility]/vanessa -Nebs, budesonide -I/S -Pulmonology consulted while patient [...] documentation, 55minutes Charges/Coding Visit Charges Inpatient E&M: 24721 Init Hosp L2 07/07/232111 <Electronically signed by Diana Santillan MD> Cosigner Signature (if applicable): CC: Dr. Diana Santillan MD; Dr. Julio Draper MD~ Signed [facility] Work Phone: 1(967) 165-858501-04-2024 Discharge summary Author Zach Thomas [facility] July 07, 2023 4:07pm Note Date/Time July 07, 2023 9: 11am [facility] Medical Records Department [address] [place] [address] Emergency Department Summary 07/07/23 MR#: [id number] Acct: [id number] Name: SNEHA CARDENAS Rep #:[id number] : 1955 68 From: Zach Thomas MD [...] Prior similar symptoms: Yes Recent [facility] Medical History Anxiety Asthma Benign essential [...] 80.3 H Lymph % (Auto) 9.3 L [place] % (Auto) 9.5 Eos % (Auto) 0.1 [...] David pneumonic effusion that is infected., Empyema), Medical Collections (Consulted pulmonary since patient has an infected right pleural effusion status post pneumonia. She also has history of COPD. Cultureswere obtained. Blood cultures were obtained prior to administration of antibiotics. Spoke with electronics hardware design engineer, Dr. Weeks who was aware of the patient. She cared ) and Other (Spoke with the intake nurse for [facility] transfer line. She will contact hospitalist. Patient be placed on the waiting list. She informed me it will be probably 3 to 4 days before she can beexcepted.) Treatment and Re-Evaluation :: Plan is admission to [facility] since surrounding hospitals are on bypass and have no bed availability. Discharge Plan Dx/Rx/DC Orders Clinical Impression: Empyema of pleural space, Acute exacerbation of chronic obstructive pulmonary disease, Acute bronchospasm, Dyspnea on exertion, Chronic hypoxemic respiratory failure, Elevated blood pressure reading without diagnosis of hypertension Disposition Disposition: Acute Care Hospital [facility] What to do if you have Problems For any increased pain, shortness of breath, bleeding, nausea or vomiting, chestpain, or any unexpected problems, contact your Primary Care Provider. Call [facility] ([phone]) or report to the closest Emergency Room. Call 911 if necessary. 07/07/23 1607 <Electronically signed by Zach Thomas MD> Cosigner Signature (if applicable): CC: Dr. Julio Draper MD ~ Signed [facility] Work Phone: 1(965) 452-334401-04-2024 Procedure [facility] 07-07-2023 Procedure [facility]01-04-2024 Discharge summary Author Zach Thomas [facility] July 07, 2023 4:07pm Note Date/Time July 07, 2023 9: 11am [facility] Medical Records Department [address] [place] [address] Emergency Department Summary 07/07/23 MR#: [id number] Acct: [id number] Name: SNEHA CARDENAS Rep #:[id number] : 1955 68 From: Zach Thomas MD [...] similar symptoms: Yes Recent Illness/Hospitalization: Yes [facility] Medical History Anxiety Asthma Benign essential [...] 80.3 H Lymph % (Auto) 9.3 L [place] % (Auto) 9.5 Eos % (Auto) 0.1 [...] David pneumonic effusion that is infected., Empyema), Medical Collections (Consulted pulmonary since patient has an infected right pleural effusion status post pneumonia. She also has history of COPD. Cultureswere obtained. Blood cultures were obtained prior to administration of antibiotics. Spoke with electronics hardware design engineer, Dr. Weeks who was aware of the patient. She cared ) and Other (Spoke with the intake nurse for [facility] transfer line. She will contact hospitalist. Patient be placed on the waiting list. She informed me it will be probably 3 to 4 days before she can beexcepted.) Treatment and Re-Evaluation :: Plan is admission to [facility] since surrounding hospitals are on bypass and have no bed availability. Discharge Plan Dx/Rx/DC Orders Clinical Impression: Empyema of pleural space, Acute exacerbation of chronic obstructive pulmonary disease, Acute bronchospasm, Dyspnea on exertion, Chronic hypoxemic respiratory failure, Elevated blood pressure reading without diagnosis of hypertension Disposition Disposition: Acute Care Hospital [facility] What to do if you have Problems For any increased pain, shortness of breath, bleeding, nausea or vomiting, chestpain, or any unexpected problems, contact your Primary Care Provider. Call [employer] ([phone]) or report to the closest Emergency Room. Call 911 if necessary. 07/07/23 1607 <Electronically signed by Zach Thomas MD> Cosigner Signature (if applicable): CC: Dr. Julio Draper MD ~ Signed [facility] Work Phone: 1(907) 389-870301-02-2024 Discharge summary Author Jaime Perdomo [facility] July 05, 2023 8:27pm Note Date/Time July 05, 2023 5: 21pm [facility] Medical Records Department [address] [place] [address] Emergency Department Summary 07/05/23 MR#: [id number] Acct: [id number] Name: SNEHA CARDENAS Rep #:[id number] : 1955 68 From: Jaime Perdomo DO [...] No chest pain or shortness of breath. [facility] Medical History Anxiety Asthma Benign essential hypertension [...] 75.8 H Lymph % (Auto) 13.4 L [place] % (Auto) 9.2 Eos % (Auto) 0.5 [...] Clarity Clear Urine pH 6.0 Ur Specific [place] 1.010 Urine Protein 30 H Urine Glucose [...] spray INTRANASAL QHS Patient Comments: Use 1 [place] in each nostril once daily. Trelegy Ellipta [...] your Primary Care Provider. Call [facility] ([phone]) or report to the closest Emergency Room. Call 911 if necessary. 07/05/232026 <Electronically signed by Jaime Perdomo DO> Cosigner Signature (if applicable): CC: Dr. Julio Draper MD ~ Signed [facility] Work Phone: 1([phone]) 904-488112-28-2023 History of Present illness Narrative* Rosa Solano RT(R) - 06/30/2023 3:00 PM EST Radiology [...] 30, 2023 2:52 PM documented in this encounterMemorial [facility]12-[facility]-2023 Discharge summary Author Yemi Celaya [facility] June 23, 2023 12:29pm Note Date/Time June 23, 2023 12:29pm [facility] Medical Records Department [address] [place] [address] Discharge Summary 06/23/23 1220 MR#: [id number] Acct: [id number] Name: SNEHA CARDENAS Rep #:[id number] : 1955 68 From: Yemi Mckeon PCP: Dr. Julio Draper MD Status:A DM IN [facility] Prov[facility] Date of Admission: 06/20/23 Date of Discharge: 06/23/23 Primary Care Physician: Dr. Julio Draper MD Consultations 06/20/23 12:17 Consult: Gastroenterology Routine Consulting Provider: [facility] Reason for Consult: GI bleed EMERGENT [...] blood transfusion-: [facility] She was [facility] 2 units of [...] on her baseline home medications. #5 paroxysmal R-lvp-cizwtdi is currently not on any anticoagulation due [...] (Auto) 70.0, Lymph % (Auto) 15.7 L, [place] % (Auto) 7.0, Eos % (Auto) 6.5 [...] (Auto) 70.0, Lymph % (Auto) 15.7 L, [place] % (Auto) 7.0, Eos % (Auto) 6.5 [...] spray INTRANASAL QHS Patient Comments: Use 1 [place] in each nostril once daily. Trelegy Ellipta [...] Self Care Charges/Coding Visit Charges Inpatient E&M: 96192 Disch Hosp >30min 06/23/23 1229 <Electronically signed by Yemi Celaya MD> Cosigner Signature (if applicable): CC: Dr. Yemi Celaya MD; Dr. Julio Draper MD~ Signed [facility] Work Phone: 1(672) 230-231512-21-2023 Discharge summary Author Yemi Celaya [facility] June 23, 2023 12:20pm Note Date/Time June 23, 2023 10:57am [facility] Medical Records Department [address] [place] [address] Instructions for Home/Discharge Instructions 06/23/23 1010 MR#: [id number] Acct: [id number] Name: SNEHA CARDENAS Rep #:[id number] : 1955 68 From: Yemi Mckeon PCP: [...] spray INTRANASAL QHS Patient Comments: Use 1 [place] in each nostril once daily. Trelegy Ellipta [...] DO; Dr. Julio Draper MD ~ Signed [facility] Work Phone: 1(133) 115-564712-20-2023 Progress note Author Ramon Antunez [facility] June 22, 2023 5:04pm Note Date/Time June 22, 2023 4:34pm [facility] Medical Records Department [address] [place] [address] Progress Note - GI 06/22/23 1633 MR#: [id number] Acct: [id number] Name: SNEHA CARDENAS Rep #:[id number] : 1955 68 From: Ramon Antunez DO PCP: Dr. Julio Draper MD Status:A DM IN Location: MS3 RO080-1 Subjective Subjective Patient underwent repeat EGD yesterday. [...] 88.5 H, Lymph % (Auto) 7.8 L, [place] % (Auto) 3.3, Eos % (Auto) 0.0, [...] monitor hemoglobin. Charges/Coding Visit Charges Inpatient E&M: 55301 Subs Hosp L3 06/22/23 1558 <Electronically signed by Ramon Friend DO> Cosigner Signature (if applicable): CC: ~ Signed [facility] Work Phone: 1(718) 274-626812-20-2023 Progress note Author Td Pillai [facility] June 22, 2023 3:42pm Note Date/Time June 22, 2023 3:40pm [facility] Medical Records Department [address] [place] [address] Progress Note - Hospitalist 06/22/23 1534 MR#: [id number] Acct: [id number] Name: SNEHA CARDENAS Rep #:[id number] : 1955 68 From: Td Pillai DO PCP: Dr. Julio Draper MD Status:A DM IN [facility] Reason for Visit Reason for Visit: Diagnoses [...] Std Deviation 51.2 H, RDW Coeff of Llay 15.9 H, Plt Count 223, MPV 9.7, Immature Gran % (Auto) 0.400, Neut % (Auto) 88.5 H, Lymph % (Auto) 7.8 L, [place] % (Auto) 3.3, Eos % (Auto) 0.0, [...] current medications, she will be transferred to [facility] #2 duodenal ulcers-both nonbleeding and oozing, [...] remain on her current medications #5 paroxysmal S-mje-czlzqzf is currently not on any anticoagulation due to upperGI bleed Clinical time spent by myself addressing patient's medical issues, reviewing herdata, and collaborating with patient's care team: 25 minutes Charges/Coding Visit Charges Inpatient E&M: 78015 Subs Hosp L1 06/22/23 1542 <Electronically signed by Td Pillai DO> Cosigner Signature (if applicable): CC: ~ Signed [facility] Work Phone: 1(575) 944-236812-20-2023 Consult note Author Ramon Antunez [facility] June 22, 2023 12:59pm Note Date/Time June 20, 2023 4:01pm [facility] Medical Records Department [address] [place] [address] Consultation - GI 06/20/23 1600 MR#: [id number] Acct: [id number] Name: SNEHA CARDENAS Rep #:[id number] : 1955 68 From: Ramon Antunez DO PCP: Dr. Julio Draper MD Status:A DM IN Location: ICU ICU05-1 HPI Consult Data Date of Consult: 06/20/23 HPI Narrative Reason for Consultation: GI bleed HPI Narrative: SNEHA CARDENAS, is a 68 F who presents with progressive weakness and fatigue. She was recently admitted to [facility] ED on 06/02/2023 with worsening shortness of [...] L nasal cannula at baseline, follows with [facility] pulmonology. She was suspected exacerbation secondary to [...] cells given on 06/15 with appropriate response. [facility] Medical History Anxiety Asthma Benign essential [...] 71.4 H, Lymph % (Auto) 17.6 L, [place] % (Auto) 7.9, Eos % (Auto) 1.8, [...] is a 68-year-old female who presented to [facility] ED on 06/20/2023 with worsening shortness of [...] of 3. Charges/Coding Visit Charges Inpatient E&M: 16913 Init Hosp L3 06/22/23 1259 <Electronically signed by Ramon Friend DO> Cosigner Signature (if applicable): CC: Dr. Edis Mayo MD; Dr. Julio Draper MD~ Signed [facility] Work Phone: [phone]) 180-334812-19-2023 Procedure [facility] 06-21-2023 Procedure [facility]12-19-2023 Progress note Author Edis Mayo [facility] June 21, 2023 10:00am Note Date/Time June 21, 2023 7:26am [facility] Medical Records Department [address] [place] [address] Progress Note - Hospitalist 06/21/23719 MR#: [id number] Acct: [id number] Name: SNEHA CARDENAS Rep #:[id number] : 1955 68 From: Edis Mayo MD PCP: Dr. Julio Draper MD Status:A DM IN Location: ICU ICU05-1 Reason for Visit Reason for Visit: Diagnoses [...] 71.4 H, Lymph % (Auto) 17.6 L, [place] % (Auto) 7.9, Eos % (Auto) 1.8, [...] Clarity Clear, Urine pH 6.0, Ur Specific [place] 1.015, Urine Protein Negative, Urine Glucose (UA) [...] RDW Coeff of Laly 16.5 H, Plt Hbenk525, MPV 9.5, Immature Gran % (Auto) 0.500, Neut % (Auto) 72.1 H, Lymph % (Auto)15.4 L, [place] % (Auto) 7.0, Eos % (Auto) 4.4, [...] documentation, 50minutes Charges/Coding Visit Charges Inpatient E&M: 09536 Subs Hosp L3 06/21/23 1000 <Electronically signed by Edis Mayo MD> Cosigner Signature (if applicable): CC: ~ Signed [facility] Work Phone: 1(398) 656-106112-18-2023 History and physical note Author Edis Mayo [facility] June 20, 2023 12:26pm Note Date/Time June 20, 2023 11:23am [facility] Medical Records Department [address] [place] [address] H&P Exam - Hospitalist 06/20/23 1123 MR#: [id number] Acct: [id number] Name: SNEHA CARDENAS Rep #:[id number] : 1955 68 From: Edis Mayo MD [...] subsequently admitted to the intensive care unit [facility] Medical History Anxiety Asthma Benign essential [...] 71.4 H, Lymph % (Auto) 17.6 L, [place] % (Auto) 7.9, Eos % (Auto) 1.8, [...] 18 minutes. Charges/Coding Visit Charges Inpatient E&M: 07818 Init Hosp L3 Procedures Hospitalists Procedures: 93727 Advncd Care Plan 30 Min 06/20/23 1226 <Electronically signed by Edis Mayo MD> Cosigner Signature (if applicable): CC: Dr. Edis Mayo MD; Dr. Julio Draper MD~ Signed [facility] Work Phone: 1(720) 688-777912-18-2023 Discharge summary Author Guido [facility] June 20, 2023 11:25am Note Date/Time June 20, 2023 10:22am [facility] Medical Records Department [address] [place] [address] Emergency Department Summary 06/20/23 MR#: [id number] Acct: [id number] Name: SNEHA CARDENAS Rep #:[id number] : 1955 68 From: Guido Oliveira MD PCP: Dr. Julio Draper MD Status:R EG ER Location: ED HPI History of Present Illness Chief Complaint: Alt LOC Narrative Narrative: 68-year-old female, past medical history of COPD, was recently released from [facility]. She states that initially, she had coming [...] but states she might feel generally weak. [facility] Medical History Anxiety Asthma Benign essential hypertension [...] 71.4 H Lymph % (Auto) 17.6 L [place] % (Auto) 7.9 Eos % (Auto) 1.8 [...] healthcare provider: Hospitalist (Dr. Edis Mayo) and Medical Collections (Dr. Antunez, gastroenterology) Critical Care Time Critical Care Time: Yes Critical care time (excluding procedures): 30-74 minutes (32 minutes), Includingtime spent:, Discussing w/Patient &/or Family/Wool [employer] Pelt Grader, Discussing w/Consultants, Arranging Admission or Transfer and Performing Direct Patient Care at Bedside Discharge Plan Dx/Rx/DC Orders Clinical Impression: Anemia requiring transfusions, Bleeding ulcer, Syncope Disposition Disposition: Acute Care Hospital [facility] What to do if you have Problems For any increased pain, shortness of breath, bleeding, nausea or vomiting, chestpain, or any unexpected problems, contact your Primary Care Provider. Call [facility] ([phone]) or report to the closest Emergency Room. Call 911 if necessary. 06/20/23 1125 <Electronically signed by Guido Oliveira MD> Cosigner Signature (if applicable): CC: Dr. Julio Draper MD ~ Signed [facility] Work Phone: 1(732) 715-180612-15-2023 Miscellaneous Notes* Telephone Encounter - Mere Soria MA - 06/17/2023 4:14 PM EST Unable to reach [facility] nurse. Left message on identified VM. Mere Soria MA * Telephone Encounter - Julio Draper MD - 06/17/2023 4:11 PM EST Okay. * Telephone Encounter - Genna Lowry RN - 06/17/2023 3:22 PM EST Michele calling from [facility] to report plan of care for patient and senior care will visit patient2 times a week for 1 week starting next week and 1 time a week for 2 weeks. Micheel also noted that while patient was in hospital patient was started on metoprolol, sucralfate, and Protonix. Patient has hospital follow up visit with provider on 06/23/2023. Please review and Advise, Genna Lowry RN [facility] Miscellaneous Notes* Telephone Encounter - Mere Soria MA - 06/16/2023 3:58 PM EST [facility] nurse notified. Mere Soria MA * Telephone Encounter - Julio Draper MD - 06/16/2023 3:56 PM EST I'll follow. * Telephone Encounter - Allison Peterson RN - 06/16/2023 2:13 PM EST [facility] - [facility]- reports patient is discharging from [facility] today (dx: acute & chronic respiratory failure), with orders for [facility] SN, PT, OT. Start of care is tomorrow. Asking if pcp agreeable to follow for orders. Please phone [facility] with verbal: [phone] documented in this encounterMem[facility]12-14-2023 Discharge summary Author Robel Funk [facility] June 16, 2023 12:21pm Note Date/Time June 16, 2023 12:14pm [facility] Medical Records Department [address] [place] [address] Instructions for Home/Discharge Instructions 06/16/23 1213 MR#: [id number] Acct: [id number] Name: SNHEA CARDENAS Rep #:[id number] : 1955 68 From: Robel fuentes DO [...] spray INTRANASAL QHS Patient Comments: Use 1 [place] in each nostril once daily. Trelegy Ellipta [...] MD; Dr. Julio Draper MD ~ Signed [facility] Work Phone: 1([phone]) 146-749812-13-2023 Progress note Author [place]el [place] June 15, 2023 5:24pm Note Date/Time June 15, 2023 5:24pm [facility] Medical Records Department [address] [place] [address] Progress Note - Hospitalist 06/15/237 MR#: [id number] Acct: [id number] Name: SNEHA CARDENAS Rep #:[id number] : 1955 68 From: Robel fuentes DO PCP: Dr. Julio Draper MD Status:A DM IN Location: [place] [address] Reason for Visit Reason for Visit: Diagnoses [...] and Output for Last 24 Hours 06/13/23 06/14/2323 23:59 23:59 23:59 Intake Total 768 / [...] (Auto) 68.7, Lymph % (Auto) 15.6 L, [place] % (Auto) 10.7 H, Eos % (Auto) [...] is a 68-year-old female who presented to [facility] ED on 06/02/2023 with worsening shortness of [...] 35 minutes. Charges/Coding Visit Charges Inpatient E&M: 71785 Subs Hosp L2 06/15/23 1724 <Electronically signed by Robel Funk DO> Cosigner Signature (if applicable): CC: ~ Signed [facility] Work Phone: 1([phone]) 618-750512-12-2023 Progress note Author Robel [facility] June 14, 2023 5:59pm Note Date/Time June 14, 2023 5:54pm [facility] Medical Records Department [address] [place] [address] Progress Note - Hospitalist 06/14/23 1746 MR#: [id number] Acct: [id number] Name: SNEHA CARDENAS Rep #:[id number] : 1955 68 From: Robel fuentes DO PCP: Dr. Julio Draper MD Status:A DM IN Location: [place] [address] Reason for Visit Reason for Visit: Diagnoses [...] at home, [facility] [...] Signed: Michael Gaxiola MD at 13:44 EST , Rhythm Strip Rhythm Strip: Sinus [...] is a 68-year-old female who presented to [facility] ED on 06/02/2023 with worsening shortness of breath. 1. Acute on chronic combined respiratory failure secondary to COPD with exacerbation, improving Requires 3 L nasal cannula at baseline, follows with [facility] pulmonology. Suspectedexacerbation secondary to right lower lobe [...] 35 minutes. Charges/Coding Visit Charges Inpatient E&M: 55858 Subs Hosp L2 06/14/23 8603 <Electronically signed by Robel Funk DO> Cosigner Signature (if applicable): CC: ~ Signed [facility] Work Phone: 1(354) 241-793512-12-2023 Procedure [facility] 06-13-2023 Progress note Author Robel [place] June 13, 2023 9:22pm Note Date/Time June 13, 2023 3:14pm [facility] Medical Records Department [address] [facility] [place] [address] Progress Note - Hospitalist 06/13/23 1514 MR#: [id number] Acct: [id number] Name: SNEHA CARDENAS Rep #:[id number] : 1955 68 From: Robel fuentes DO PCP: Dr. Julio Draper MD Status:A DM IN Location: [place] [address] Reason for Visit Reason for Visit: Diagnoses [...] 72.5 H, Lymph % (Auto) 14.4 L, [place] % (Auto) 8.3, Eos % (Auto) 2.4, [...] is a 68-year-old female who presented to [facility] ED on 06/02/2023 with worsening shortness of [...] 35 minutes. Charges/Coding Visit Charges Inpatient E&M: 42546 Subs Hosp L2 06/13/232121 <Electronically signed by Robel Funk DO> Cosigner Signature (if applicable): CC: ~ Signed [facility] Work Phone: 1(349) 220-632112-11-2023 Procedure [facility] 06-12-2023 Progress note Author Td [facility] June 12, 2023 10:34am Note Date/Time June 12, 2023 10:34am [facility] Medical Records Department [address] [place] [address] Progress Note - Hospitalist 06/12/23 1032 MR#: [id number] Acct: [id number] Name: SNEHA CARDENAS Rep #:[id number] : 1955 68 From: Td Pillai DO PCP: Dr. Julio Draper MD Status:A DM IN Location: [place] [address] 1 Reason for Visit Reason for Visit: Diagnoses [...] % (Auto) 65.7, Lymph % (Auto) 19.9, [place] % (Auto) 8.6, Eos % (Auto) 2.9, Baso % (Auto) 0.2, Absolute Neuts (auto) 13.2 H, Absolute Lymphs (auto) 4.01, Nucleated RBC % 0, Diff Path Review May Micro: Microbiology 06/07/23 Unknown Fluid - Pleural [...] 25 minutes Charges/Coding Visit Charges Inpatient E&M: 88778 Subs Hosp L1 06/12/23 1034 <Electronically signed by Td Pillai DO> Cosigner Signature (if applicable): CC: ~ Signed [facility] Work Phone: 1(329) 428-575812-10-2023 Progress note Author Kapil Doyle [facility] June 12, 2023 9:51am Note Date/Time June 12, 2023 8:33am [facility] Medical Records Department [address] [place] [address] Progress Note - Cardiac Cath Rn 06/12/23829 MR#: [id number] Acct: [id number] Name: SNEHA CARDENAS Rep #:[id number] : 1955 68 From: Kapil Doyle MD PCP: Dr. Julio Draper MD Status:A DM IN Location: [place] [address] 1 Assessment & Plan Assessment/Plan (1) COPD [...] discharge 7. Follow-up with primary (Dr. Nieves [facility]) in 2 to 4 weeks IMPRESSIONS: 1. Acute and chronic respiratory failure with hypoxemia and hypercapnia secondary to COPD with exacerbation The patient has a known history of COPD and chronic hypoxemic respiratory failure with a baseline 3 L/min oxygen requirement. She is followed regularly by Dr. Magali Nieves at [facility] pulmonary medicine. The patient appears to be [...] % (Auto) 65.7, Lymph % (Auto) 19.9, [place] % (Auto) 8.6, Eos % (Auto) 2.9, Baso % (Auto) 0.2, Absolute Neuts (auto) 13.2 H, Absolute Lymphs (auto) 4.01, Nucleated RBC % 0 Micro: Microbiology 06/07/23 Unknown Fluid - Pleural (Lung) Gram Stain - Final 06/07/23 Unknown Fluid - Pleural (Lung) Body Fluid Culture - Final Culture exhibits no growth. 12/05/23 Unknown Fluid - Pleural (Lung) Anaerobic Culture [...] affect normal Charges/Coding Visit Charges Inpatient E&M: 60220 Subs Hosp L2 06/12/2351 <Electronically signed by Kapil Doyle MD> Cosigner Signature (if applicable): CC: ~ Signed [facility] Work Phone: [phone] 368-262312-09-2023 Progress note Author Td Pillai [facility] June 11, 2023 4:18pm Note Date/Time June 11, 2023 4 :18pm [facility] Medical Records Department [address] [facility] [place] [address] Progress Note - Hospitalist 06/11/23 1615 MR#: [id number] Acct: [id number] Name: SNEHA CARDENAS Rep #:[id number] : 1955 68 From: Td Pillai DO PCP: Dr. Julio Draper MD Status:A DM IN Location: [place] [address] Reason for Visit Reason for Visit: Diagnoses [...] Total 1701 / 2081 1810 / 1810 974.75 / 974.75 Output [...] L 06/11/23 06:40: Lymph % (Auto) Cancelled, [place] % (Auto) 6.9 06/11/23 06:40: [place] % (Auto) Cancelled, Eos % (Auto) 3.7 [...] Tear DropCells Cancelled, Ovalocytes Cancelled, Stomatocytes Cancelled, [place]ink[place] Bodies Cancelled, [place] Cells Cancelled, Bite Cells Cancelled, Crenated Cell [...] 25 minutes Charges/Coding Visit Charges Inpatient E&M: 57842 Subs Hosp L1 06/11/23 1618 <Electronically signed by Td Pillai DO> Cosigner Signature (if applicable): CC: ~ Signed [facility] Work Phone: [phone] 110-556612-09-2023 Progress note Author Kapil Doyle [facility] June 11, 2023 9:45am Note Date/Time June 11, 2023 8 :35am [facility] Medical Records Department [address] [place] [address] Progress Note - Cardiac Cath Rn 06/11/23 0832 MR#: [id number] Acct: [id number] Name: SNEHA CARDENAS Rep #:[id number] : 1955 68 From: Kapil Doyle MD PCP: Dr. Julio Draper MD Status:A DM IN Location: [place] [address] Assessment & Plan Assessment/Plan (1) COPD with [...] followed regularly by Dr. Magali Nieves at [facility] pulmonary medicine. The patient appears to be [...] L 06/11/23 06:40: Lymph % (Auto) Cancelled, [place] % (Auto) 6.9 06/11/23 06:40: [place] % (Auto) Cancelled, Eos % (Auto) 3.7 [...] Tear DropCells Cancelled, Ovalocytes Cancelled, Stomatocytes Cancelled, Wink[place] Bodies Cancelled, Luis Cells Cancelled, Bite Cells [...] flat affect Charges/Coding Visit Charges Inpatient E&M: 07120 Subs Hosp L2 06/11/23 0945 <Electronically signed by Kapil Doyle MD> Cosigner Signature (if applicable): CC: ~ Signed [facility] Work Phone: 1([phone]) 448-797012-08-2023 Progress note Author Ramon Antunez [facility] June 10, 2023 4:24pm Note Date/Time June 10, 2023 4 :23pm [facility] Medical Records Department [address] [place] [address] Progress Note - GI 06/10/23 1622 MR#: [id number] Acct: [id number] Name: SNEHA CARDENAS Rep #:[id number] : 1955 68 From: Ramon Antunez DO [...] 71.0 H, Lymph % (Auto) 17.4 L, [place] % (Auto) 7.2, Eos % (Auto) 1.6, [...] She will have an ASA of 3. 12/8-her hemoglobin is slightly down to 7.9 from 8.2. She is on PPI therapy twice a day. I will also add Carafate therapy 3 times a day. Continue to monitor hemoglobin. Charges/Coding Visit Charges Inpatient E&M: 31929 Subs Hosp L3 06/10/23 1624 <Electronically signed by Ramon Friend DO> Cosigner Signature (if applicable): CC: ~ Signed [facility] Work Phone: [phone] 128-989812-08-2023 Progress note Author Kapil Doyle [facility] June 10, 2023 1:15pm Note Date/Time June 10, 2023 8 :28am [facility] Medical Records Department [address] [place] [address] Progress Note - Cardiac Cath Rn 06/10/23820 MR#: [id number] Acct: [id number] Name: SNEHA CARDENAS Rep #:[id number] : 1955 68 From: Kpail Doyle MD PCP: Dr. Julio Draper MD [...] followed regularly by Dr. Magali Nieves at [facility] pulmonary medicine. The patient appears to be [...] 71.0 H, Lymph % (Auto) 17.4 L, [place] % (Auto) 7.2, Eos % (Auto) 1.6, [...] Affect: anxious Charges/Coding Visit Charges Inpatient E&M: 50467 Subs Hosp L3 06/10/23 1315 <Electronically signed by Kapil Doyle MD> Cosigner Signature (if applicable): CC: ~ Signed [facility] Work Phone: [phone] 228-644912-08-2023 Progress note Author Td Pillai [facility] June 10, 2023 1:04pm Note Date/Time June 10, 2023 1 2:53pm [facility] Medical Records Department [address] [place] [address] Progress Note - Hospitalist 06/10/23 1249 MR#: [id number] Acct: [id number] Name: SNEHA CARDENAS Rep #:[id number] : 1955 68 From: Td Pillai DO [...] 71.0 H, Lymph % (Auto) 17.4 L, [place] % (Auto) 7.2, Eos % (Auto) 1.6, [...] 35 minutes Charges/Coding Visit Charges Inpatient E&M: 68721 Subs Hosp L2 06/10/23 1304 <Electronically signed by Td Pillai DO> Cosigner Signature (if applicable): CC: ~ Signed [facility] Work Phone: 1(855) 153-987012-07-2023 Progress note Author Td Pillai [facility] June 09, 2023 6:02pm Note Date/Time June 09, 2023 6 :03pm [facility] Medical Records Department [address] [place] [address] Progress Note - Hospitalist 06/09/23 1759 MR#: [id number] Acct: [id number] Name: SNEHA CARDENAS Rep #:[id number] : 1955 68 From: Td Pillai DO [...] 72.7 H, Lymph % (Auto) 13.9 L, [place] % (Auto) 8.6, Eos % (Auto) 1.4, [...] 35 minutes Charges/Coding Visit Charges Inpatient E&M: 06015 Subs Hosp L2 06/09/23 1802 <Electronically signed by Td Pillai DO> Cosigner Signature (if applicable): CC: ~ Signed [facility] Work Phone: [phone] 260-329112-07-2023 Progress note Author Pao Weeks [facility] June 09, 2023 11:53am Note Date/Time June 09, 2023 1 1:45am [facility] Medical Records Department [address] [place] [address] Progress Note - Cardiac Cath Rn 06/09/23 1140 MR#: [id number] Acct: [id number] Name: SNEHA CARDENAS Rep #:[id number] : 1955 68 From: Pao Mckeon PCP: [...] lobe pneumonia * History of tobacco use (~39-bymr-hypq )quit 10 years ago * Abnormal chest [...] Her Eliquis has been on hold since 06/07 as she was undergoing thoracentesis. will continueto [...] 72.7 H, Lymph % (Auto) 13.9 L, [place] % (Auto) 8.6, Eos % (Auto) 1.4, [...] facial droop Charges/Coding Visit Charges Inpatient E&M: 17372 Subs Hosp L3 06/09/23 1153 <Electronically signed by Pao Weeks MD> Cosigner Signature (if applicable): CC: ~ Signed [facility] Work Phone: [phone] 431-704512-07-2023 Procedure [facility] 06-09-2023 Procedure [facility]12-06-2023 Consult note Author Ramon Anutnez [facility] June 08, 2023 5:05pm Note Date/Time June 08, 2023 4 :53pm [facility] Medical Records Department [address] [place] [address] Consultation - GI 06/08/23 1653 MR#: [id number] Acct: [id number] Name: SNEHA CARDENAS Rep #:[id number] : 1955 68 From: Ramon Antunez DO [...] her worsening state. VItals on admission was TN of 118, temp of 100.9F, RR of [...] to hold. Her hemoglobin has dropped2 g. [facility] Medical History Anxiety Asthma Benign essential [...] 87.6 H, Lymph % (Auto) 5.5 L, [place] % (Auto) 4.2, Eos % (Auto) 0.2, [...] of 3. Charges/Coding Visit Charges Inpatient E&M: 86061 Init Hosp L3 06/08/23 3401 <Electronically signed by Ramon Antunez DO> Cosigner Signature (if applicable): CC: ALFRED Jovel; Dr. Kapil Doyle MD; Dr. Adrian Nieves DO; Dr. Pao Weeks MD; Dr. Gabby Sutherland MD; Dr. Ford Graff MD; Dr. Lauren MD~ Signed [facility] Work Phone: [phone] 496-548512-06-2023 Progress note Author Td Pillai [facility] June 08, 2023 4:34pm Note Date/Time June 08, 2023 4 :34pm [facility] Medical Records Department [address] [place] [address] Progress Note - Hospitalist 06/08/23 1627 MR#: [id number] Acct: [id number] Name: SNEHA CARDENAS Rep #:[id number] : 1955 68 From: Td Pillai DO [...] 87.6 H, Lymph % (Auto) 5.5 L, [place] % (Auto) 4.2, Eos % (Auto) 0.2, [...] 35 minutes Charges/Coding Visit Charges Inpatient E&M: 22240 Subs Hosp L2 06/08/23 1634 <Electronically signed by Td Pillai DO> Cosigner Signature (if applicable): CC: ~ Signed [facility] Work Phone: [phone] 761-314712-06-2023 Progress note Author Pao Weeks [facility] June 08, 2023 9:56am Note Date/Time June 08, 2023 9 :50am [facility] Medical Records Department [address] [place] [address] Progress Note - Cardiac Cath Rn 06/08/23 0944 MR#: [id number] Acct: [id number] Name: SNEHA CARDENAS Rep #:[id number] : 1955 68 From: Pao Mckeon PCP: [...] lobe pneumonia * History of tobacco use (~63-cbbx-ehff )quit 10 years ago * Abnormal chest [...] 87.6 H, Lymph % (Auto) 5.5 L, [place] % (Auto) 4.2, Eos % (Auto) 0.2, [...] facial droop Charges/Coding Visit Charges Inpatient E&M: 71063 Subs Hosp L3 06/08/23 0956 <Electronically signed by Pao Weeks MD> Cosigner Signature (if applicable): CC: ~ Signed [facility] Work Phone: [phone] 372-266212-05-2023 Progress note Author Gabby Sutherland [facility] June 07, 2023 3:39pm Note Date/Time June 07, 2023 1 1:34am [facility] Medical Records Department [address] [place] [address] Progress Note 06/07/23 1125 MR#: [id number] Acct: [id number] Name: SNEHA CARDENAS Rep #:[id number] : 1955 68 From: Gabby Sutherland MD [...] 87.8 H, Lymph % (Auto) 5.4 L, [place] % (Auto) 4.8, Eos % (Auto) 0.1, [...] 8:52 EST Reading Location ID and State: [facility] / [place] Tel , Service support , Rhythm Strip [...] code * Charges/Coding Visit Charges Inpatient E&M: 28617 Subs Hosp L2 06/07/23 1539 <Electronically signed by Gabby Sutherland MD> Gabby Sutherland MD Cosigner Signature (if applicable): CC: ~ Signed [facility] Work Phone: [phone] 599-335312-05-2023 Progress note Author Pao Weeks [facility] June 07, 2023 11:04am Note Date/Time June 07, 2023 1 1:04am [facility] Medical Records Department [address] [place] [address] Progress Note - Cardiac Cath Rn 06/07/23 1058 MR#: [id number] Acct: [id number] Name: SNEHA CARDENAS Rep #:[id number] : 1955 68 From: Pao Mckeon PCP: [...] lobe pneumonia * History of tobacco use (~24-furn-vvvs )quit 10 years ago * Abnormal chest [...] 87.8 H, Lymph % (Auto) 5.4 L, [place] % (Auto) 4.8, Eos % (Auto) 0.1, [...] 8:52 EST Reading Location ID and State: [facility] / [place] Tel , Service support , Rhythm Strip [...] chest normal Charges/Coding Visit Charges Inpatient E&M: 75469 Subs Hosp L3 06/07/23 1104 <Electronically signed by Pao Weeks MD> Cosigner Signature (if applicable): CC: ~ Signed [facility] Work Phone: 1(163) 233-118012-05-2023 Consult note Author Cash Lovett [facility] June 07, 2023 1:54am Note Date/Time June 07, 2023 1 :55am [facility] Medical Records Department [address] [place] [address] [place] [address] Pharmacokinetic/Renal -Consult 06/07/23 0153 MR#: [id number] Acct: [id number] Name: SNEHA CARDENAS Rep #:[id number] : 1955 68 From: Cash Montes od [...] Signature (if applicable): Date CC: ~ Signed [facility] Work Phone: 1([phone] 519-661112-04-2023 Progress note Author [facility] June 06, 2023 3:45pm Note Date/Time June 06, 2023 1 2:19pm [facility] Medical Records Department [address] [place] [address] Progress Note 06/06/23 1215 MR#: [id number] Acct: [id number] Name: SNEHA CARDENAS Rep #:[id number] : 1955 68 From: Gabby Sutherland MD [...] 91.2 H, Lymph % (Auto) 3.5 L, [place] % (Auto) 3.3, Eos % (Auto) 0.0, [...] 88.9 H, Lymph % (Auto) 4.7 L, [place] % (Auto) 4.0, Eos % (Auto) 0.2, [...] code * Charges/Coding Visit Charges Inpatient E&M: 40749 Subs Hosp L2 06/06/23 7945 <Electronically signed by Gabby Sutherland MD> Gabby Sutherland MD Cosigner Signature (if applicable): CC: ~ Signed [facility] Work Phone: [phone] 127-333412-04-2023 Progress note Author Pao Weeks [facility] June 06, 2023 11:53am Note Date/Time June 06, 2023 1 1:53am [facility] Medical Records Department [address] [place] [address] Progress Note - Cardiac Cath Rn 06/06/23 1141 MR#: [id number] Acct: [id number] Name: SNEHA CAREDNAS Rep #:[id number] : 1955 68 From: Pao Mckeon PCP: [...] lobe pneumonia * History of tobacco use (~77-mmxi-nvgs )quit 10 years ago * Abnormal chest [...] 91.2 H, Lymph % (Auto) 3.5 L, [place] % (Auto) 3.3, Eos % (Auto) 0.0, Baso % (Auto) 0.0, Absolute Neuts (auto) 28.8 H, Absolute Lymphs (auto) 1.12, Nucleated RBC % 0, Differential Comment SCANNED, Diff Path Review May foll, Sodium 142, Potassium 4.0, Chloride 106, Carbon [...] 88.9 H, Lymph % (Auto) 4.7 L, [place] % (Auto) 4.0, Eos % (Auto) 0.2, [...] facial droop Charges/Coding Visit Charges Inpatient E&M: 55659 Subs Hosp L3 06/06/23 1153 <Electronically signed by Pao Weeks MD> Cosigner Signature (if applicable): CC: ~ Signed [facility] Work Phone: [phone] 656-890112-03-2023 Progress note Author Gabby Sutherland [facility] June 05, 2023 1:59pm Note Date/Time June 05, 2023 1 2:45pm [facility] Medical Records Department [address] [place] [address] Progress Note 06/05/23 1243 MR#: [id number] Acct: [id number] Name: SNEHA CARDENAS Rep #:[id number] : 1955 68 From: Gabby Sutherland MD [...] code * Charges/Coding Visit Charges Inpatient E&M: 77312 Subs Hosp L3 06/05/23 1347 <Electronically signed by Gabby Sutherland MD> Gabby Sutherland MD Cosigner Signature (if applicable): CC: ~ Signed ADDENDUM by Dr. Gabby Sutherland MD on 06/05/23 at 1359 Addendum Addendum wbc today is 31.6. Likely potentiated by effect of steroids. Continue IV vancomycin and meropenem 06/05/23 1359 <Electronically signed by Gabby garnica MD> Date _ Gabby Stuherland MD Cosigner Signature (if applicable): Date cc: ~* Signed [facility] Work Phone: 1(841) 546-899312-03-2023 Consult note Author Solo Martinez [facility] June 05, 2023 1:55pm Note Date/Time June 05, 2023 1 :50pm [facility] Medical Records Department [address] [place] [address] Pharmacokinetic/Renal -Consult 06/05/23 1350 MR#: [id number] Acct: [id number] Name: CONORSNEHA MENON Reji Rep #:[id number] : 1955 68 From: Solo Martinez PCP: [...] required. Follow-Up Labs Follow-Up Labs: Trough: Vancomycin (..23 @0030 before 0100 dose) 06/05/23 5907 <Electronically signed by Solo Matrinez> Date _ Solo Juan Robertson Signature (if applicable): Date CC: ~ Signed [facility] Work Phone: 1([phone] 190-641312-03-2023 Progress note Author Adrian Nieves [facility] June 05, 2023 7:59am Note Date/Time June 05, 2023 6 :39am [facility] Medical Records Department [address] [place] [address] Progress Note - Cardiac Cath Rn 06/05/23 0639 MR#: [id number] Acct: [id number] Name: SNEHA CARDENAS Rep #:[id number] : 1955 68 From: Adrian Nieves DO PCP: Dr. Julio Draper MD Status:A DM IN Location: ICU [place] [address] 2-1 Assessment & Plan Assessment/Plan (1) Acute [...] followed regularly by Dr. Magali Nieves at [facility] pulmonary medicine. The patient appears to be [...] medicationsas indicated. This note was generated with [employer] dictation software. It may contain incorrectwords, spelling, [...] Differential Comment SCANNED, Diff Path Review May foll Micro: Microbiology 06/02/23 10:34 Urine, Catheterized Urine [...] Referring Physician: Julio Draper Performed By: Any Hunter, RANDI, RVT Rhythm Strip Rhythm Strip: Sinus Tach [...] affect normal Charges/Coding Visit Charges Inpatient E&M: 05058 Subs Hosp L2 06/05/23 0759 <Electronically signed by Adrian Nieves DO> Cosigner Signature (if applicable): CC: ~ Signed [facility] Work Phone: 1(685) 103-883512-02-2023 Progress note Author Gabby [facility] June 04, 2023 2:54pm Note Date/Time June 04, 2023 1 0:03am [facility] Medical Records Department [address] [place] [address] Progress Note 06/04/23 1001 MR#: [id number] Acct: [id number] Name: SNEHA CARDENAS Rep #:[id number] : 1955 68 From: Gabby Sutherland MD [...] 91.4 H, Lymph % (Auto) 3.3 L, [place] % (Auto) 3.9, Eos % (Auto) 0.0, [...] code * Charges/Coding Visit Charges Inpatient E&M: 18400 Subs Hosp L3 06/04/23 1454 <Electronically signed by Gabby Sutherland MD> Gabby Sutherland MD Cosigner Signature (if applicable): CC: ~ Signed [facility] Work Phone: 1([phone]) 641-387812-02-2023 Progress note Author Adrian Nieves [facility] June 04, 2023 6:03am Note Date/Time June 04, 2023 5 :45am [facility] Medical Records Department [address] [facility] [place] [address] Progress Note - Cardiac Cath Rn 06/04/23 0544 MR#: [id number] Acct: [id number] Name: SNEHA CARDENAS Rep #:[id number] : 1955 68 From: Adrian Nieves DO [...] followed regularly by Dr. Magali Nieves at [facility] pulmonary medicine. The patient appears to be [...] medicationsas indicated. This note was generated with [employer] dictation software. It may contain incorrectwords, spelling, [...] Affect: anxious Charges/Coding Visit Charges Inpatient E&M: 70845 Subs Hosp L3 06/04/23 0603 <Electronically signed by Adrian Nieves DO> Cosigner Signature (if applicable): CC: ~ Signed [facility] Work Phone: 1(954) 234-119712-02-2023 Consult note Author Cash Lovett [facility] June 04, 2023 2:15am Note Date/Time June 04, 2023 2 :15am [facility] Medical Records Department [address] [facility] [place] [address] Pharmacokinetic/Renal -Consult 06/04/23212 MR#: [id number] Acct: [id number] Name: SNEHA CARDENAS Rep #:[id number] : 1955 68 From: Cash Montes od [...] [date and time ordered]: 06/05 @ 1300 06/04/235 <Electronically signed by Cash barrios> Date _ Cash Lovett Cosigner Signature (if applicable): Date CC: ~ Signed [facility] Work Phone: 1(740) 459-923612-01-2023 Progress note Author Livan Garcia [facility] June 03, 2023 9:13pm Note Date/Time June 03, 2023 9 :13pm [facility] Medical Records Department [address] [place] [address] Progress Note - Hospitalist 06/03/232111 MR#: [id number] Acct: [id number] Name: SNEHA CARDENAS Rep #:[id number] : 1955 68 From: Livan Garcai DO PCP: Dr. Julio Draper MD Status:A [...] Cosigner Signature (if applicable): CC: ~ Signed [facility] Work Phone: 1([phone]) 428-487312-01-2023 Progress note Author Robel Funk [facility] June 03, 2023 7:12pm Note Date/Time June 03, 2023 7 :12pm [facility] Medical Records Department [address] [facility] [place] [address] Progress Note - Hospitalist 06/03/23 190 MR#: [id number] Acct: [id number] Name: SNEHA CARDENAS Rep #:[id number] : 1955 68 From: Robel fuentes DO [...] Cosigner Signature (if applicable): CC: ~ Signed [facility] Work Phone: 1(700) 882-167012-01-2023 History and physical note Author Gabby Sandrakierra [facility] June 03, 2023 2:16pm Note Date/Time June 02, 2023 10:59am [facility] Medical Records Department [address] [place] [address] History & Physical Exam 06/02/23 1052 MR#: [id number] Acct: [id number] Name: SNEHA CARDENAS Rep #:[id number] : 1955 68 From: Gabby Sutherland MD [...] her worsening state. VItals on admission was TN of 118, temp of 100.9F, RR of [...] hypoxic respiratory failure due to community-acquired pneumonia. [facility] Medical History Anxiety Asthma Benign essential [...] (Auto) 84.8 H, Lymph % (Auto) 9.2L, [place] % (Auto) 3.9, Eos % (Auto) 1.1, [...] elects to be full code. * Total ignn-cq-rvpf time 17 minutes. Charges/Coding Visit Charges Inpatient E&M: 56376 Init Hosp L3 Procedures Hospitalists Procedures: 01191 Advncd Care Plan 30 Min 06/03/23 1416 <Electronically signed by Gabby Sutherland MD> Cosigner Signature (if applicable): CC: Dr. Gabby Sutherland MD; Dr. Julio Draper MD~ Signed [facility] Work Phone: 1(767) 556-427312-01-2023 Progress note Author Gabby Sutherland [facility] June 03, 2023 2:16pm Note Date/Time June 03, 2023 1 0:24am [facility] Medical Records Department [address] [place] [address] Progress Note 06/03/23 1018 MR#: [id number] Acct: [id number] Name: SNEHA CARDENAS Rep #:[id number] : 1955 68 From: Gabby Sutherland MD [...] Clarity Cloudy, Urine pH 5.0, Ur Specific [place] 1.030, Urine Protein 100 H, Urine Glucose [...] 90.6 H, Lymph % (Auto) 3.5 L, [place] % (Auto) 4.8, Eos % (Auto) 0.0, [...] code * Charges/Coding Visit Charges Inpatient E&M: 81731 Subs Hosp L3 06/03/23 1416 <Electronically signed by Gabby Sutherland MD> Gabby Sutherland MD Cosigner Signature (if applicable): CC: ~ Signed [facility] Work Phone: 1([phone]) 595-243512-01-2023 Progress note Author Adrian Nieves [facility] June 03, 2023 8:26am Note Date/Time June 03, 2023 7 :09am [facility] Medical Records Department [facility] [place] [address] Progress Note - Cardiac Cath Rn 06/03/23 0706 MR#: [id number] Acct: [id number] Name: SNEHA CARDENAS Rep #:[id number] : 1955 68 From: Adrian Nieves DO [...] followed regularly by Dr. Magali Nieves at [facility] pulmonary medicine. The patient appears to be [...] (Auto) 84.8 H, Lymph % (Auto) 9.2L, [place] % (Auto) 3.9, Eos % (Auto) 1.1, [...] Clarity Cloudy, Urine pH 5.0, Ur Specific [place] 1.030, Urine Protein 100 H, Urine Glucose [...] 90.6 H, Lymph % (Auto) 3.5 L, [place] % (Auto) 4.8, Eos % (Auto) 0.0, [...] Affect: flat affect Charges/Coding Procedures Hospitalists Procedures: 45639 Critial Care 1st Hr 06/03/23 0826 <Electronically signed by Adrian Nieves DO> Cosigner Signature (if applicable): CC: ~ Signed [facility] Work Phone: [phone] 718-240112-01-2023 Consult note Author Adrian Nieves [facility] June 03, 2023 7:10am Note Date/Time June 02, 2023 1:54pm [facility] Medical Records Department [address] [place] [address] Pharmacokinetic/Renal -Consult 06/02/23 1354 MR#: [id number] Acct: [id number] Name: SNEHA CARDENAS Rep #:[id number] : 1955 68 From: Jose Cantor PCP: [...] @ 0030 06/02/23 1355 <Electronically signed by Jose Espinoza r> Date _ Jose Cantor 06/03/23 0710 <Electronically signed by Adrian Nieves D O> Cosigner Signature (if applicable): Date Adrian Nieves DO CC: ~ Signed [facility] Work Phone: [phone] 570-401911-30-2023 Consult note Author Adrian Nieves [facility] June 02, 2023 12:50pm Note Date/Time June 02, 2023 12:50pm [facility] Medical Records Department [address] [place] [address] Consultation - Cardiac Cath Rn 06/02/23 1233 MR#: [id number] Acct: [id number] Name: SNEHA CARDENAS Rep #:[id number] : 1955 68 From: Adrian Nieves DO [...] followed regularly by Dr. Magali Nieves at [facility] pulmonary medicine. The patient appears to be [...] is currently followedby Dr. Magali Nieves at [facility]. She has chronic hypoxemic respiratory failure with [...] the medical intensive care unitfor further management. [facility] Medical History Anxiety Asthma Benign essential [...] (Auto) 84.8 H, Lymph % (Auto) 9.2L, [place] % (Auto) 3.9, Eos % (Auto) 1.1, [...] Clarity Cloudy, Urine pH 5.0, Ur Specific [place] 1.030, Urine Protein 100 H, Urine Glucose [...] 10:05 EST Reading Location ID and State: [address] [place] [address] , Service support , Charges/Coding Procedures Hospitalists Procedures: 01075 Critial Care 1st Hr 06/02/23 1250 <Electronically signed by Adrian Nieves DO> Cosigner Signature (if applicable): CC: ALFRED Jovel; Dr. Kapil Doyle MD; Dr. Adrian Nieves DO; Dr. Pao Weeks MD; Dr. Ford Graff MD; Dr. Julio Draper MD~ Signed [facility] Work Phone: 1([phone]) [phone] Discharge summary Author Mikael Huione [facility] June 02, 2023 11:11am Note Date/Time June 02, 2023 9:21am [facility] Medical Records Department [address] [place] [address] Emergency Department Summary 06/02/23 MR#: [id number] Acct: [id number] Name: SNEHA CARDENAS Rep #:[id number] : 1955 68 From: Mikael Swartz MD [...] she has not taken it today yet. [facility] Medical History Anxiety Asthma Benign essential hypertension [...] 84.8 H Lymph % (Auto) 9.2 L [place] % (Auto) 3.9 Eos % (Auto) 1.1 [...] Clarity Cloudy Urine pH 5.0 Ur Specific [place] 1.030 Urine Protein 100 H Urine Glucose [...] Management Discussion w/another healthcare provider: Hospitalist and Medical Collections (alonso Nieves) Critical Care Time Critical Care Time: Yes Critical care time (excluding procedures): 30-74 minutes (40 min), Including time spent:, Discussing w/Patient &/or Family/[employer] Grader, Discussing w/Consultants, Arranging Admission or Transfer and Performing Direct Patient Care at Bedside Discharge Plan Dx/Rx/DC Orders Clinical Impression: Acute and chronic respiratory failure, unspecified whether with hypoxia or hypercapnia, Acute exacerbation of chronic obstructive pulmonary disease (COPD),Community acquired pneumonia of right lower lobe of lung, Failure of outpatient treatment, Lung nodules, Parapneumonic effusion Disposition Disposition: [facility] Care [facility] What to do if you have Problems For any increased pain, shortness of breath, bleeding, nausea or vomiting, chestpain, or any unexpected problems, contact your Primary Care Provider. Call [facility] ([phone]) or report to the closest Emergency Room. Call 911 if necessary. 06/02/23 1111 <Electronically signed by Mikael Swartz MD> Cosigner Signature (if applicable): CC: Dr. Julio Draper MD ~ Signed [facility] Work Phone: [phone]) 728-747411-30-2023 Discharge summary Author Mikael Swartz [facility] June 02, 2023 11:11am Note Date/Time June 02, 2023 9:21am [facility] Medical Records Department [address] [place] [address] Emergency Department Summary 06/02/23 MR#: [id number] Acct: [id number] Name: SNEHA CARDENAS Rep #:[id number] : 1955 68 From: Mikael Swartz MD [...] she has not taken it today yet. [facility] Medical History Anxiety Asthma Benign essential hypertension [...] 84.8 H Lymph % (Auto) 9.2 L [place] % (Auto) 3.9 Eos % (Auto) 1.1 [...] Clarity Cloudy Urine pH 5.0 Ur Specific [place] 1.030 Urine Protein 100 H Urine Glucose [...] Management Discussion w/another healthcare provider: Hospitalist and Medical Collections (alonso Nieves) Critical Care Time Critical Care Time: Yes Critical care time (excluding procedures): 30-74 minutes (40 min), Including time spent:, Discussing w/Patient &/or Family/[employer] Grader, Discussing w/Consultants, Arranging Admission or Transfer and Performing Direct Patient Care at Bedside Discharge Plan Dx/Rx/DC Orders Clinical Impression: Acute and chronic respiratory failure, unspecified whether with hypoxia or hypercapnia, Acute exacerbation of chronic obstructive pulmonary disease (COPD),Community acquired pneumonia of right lower lobe of lung, Failure of outpatient treatment, Lung nodules, Parapneumonic effusion Disposition Disposition: [facility] Care [facility] What to do if you have Problems For any increased pain, shortness of breath, bleeding, nausea or vomiting, chestpain, or any unexpected problems, contact your Primary Care Provider. Call [facility] ([phone]) or report to the closest Emergency Room. Call 911 if necessary. 06/02/23 1111 <Electronically signed by Mikael Swartz MD> Cosigner Signature (if applicable): CC: Dr. Julio Draper MD ~ Signed [facility] Work Phone: 1(609) [phone] Discharge summary Author Hoang Foster [facility] June 01, 2023 6:09am Note Date/Time June 01, 2023 6:10am [facility] Medical Records Department [address] [place] [address] Emergency Department Summary 06/01/23 MR#: [id number] Acct: [id number] Name: SNEHA CARDENAS Rep #:[id number] : 1955 68 From: Hoang Foster DO PCP: Dr. Julio Draper MD Status:R EG ER Location: ED HPI Narrative Narrative: Sneha Cardenas 1955 HPI: Patient is a 68-year-old female with past medical history of pulmonary nodules who wears 2 to 3 L nasal cannula oxygen 24/01. ?She states she had a CT scan [...] Diagnosis: Right lower lobe pneumonia [facility] Medical History Anxiety Asthma Benign essential [...] spray INTRANASAL QHS Patient Comments: Use 1 [place] in each nostril once daily. Trelegy Ellipta [...] your Primary Care Provider. Call [facility] ([phone]) or report to the closest Emergency Room. Call 911 if necessary. 06/01/23 0609 <Electronically signed by Hoang Foster DO> Cosigner Signature (if applicable): CC: Dr. Julio Draper MD ~ Signed [facility] Work Phone: [phone]) 297-509511-27-2023 Miscellaneous Notes* Telephone Encounter - Luna Swartz [...] severity of pain. Please advise patient at [phone] . Rekha Nieves LPN [facility] History of Present illness Narrative* Jacinto [...] 25, 2023 3:29 PM documented in this encounterMem[facility]10-25-2023 Miscellaneous Notes* Telephone Encounter - Jacinto Solorio LPN - 04/27/2023 10:48 AM EDT Plan of Treatment faxed to [facility] [place]. Jacinto Solorio LPN documented in this encounterMemorial [facility]08-31-2023 History of Present illness Narrative* Magali Nieves MD - 03/03/2023 2:15 PM EDT Images from the original note were not included. . Respiratory [place] Note Patient name: Sneha Cardenas PCP: Julio [...] 1 tablet by mouth daily at bedtime. illujttbjey-qoobmlzoj-iowjfxkv (TRELEGY ELLIPTA) 100-62.5-25 mcg inhalation powder Inhale [...] Laterality Date ARTHROPLASTY TOTAL SHOULDER Right 02/2018 [facility]. 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 Abimbola Lewis LPN * Telephone Encounter - Luna Mariano - 02/22/2023 12:25 PM EDT [facility] called requesting orders for POC and last office visit notes to be faxed. She states she talked to somebody last week but I see no documentation. Thanks Luna Mariano MA documented in this encounterMem[facility]08-15-2023 History of Present illness Narrative* Magali Nieves MD - 02/15/2023 2:33 PM EDT Needs portable oxygen documented in this [facility]07-18-2023 Miscellaneous Notes* Telephone Encounter - Anushka Alexis LPN - 01/18/2023 11:16 AM EDT Patient [...] Anushka Alexis LPN * Telephone Encounter - Luna Portillo - 01/18/2023 10:26 AM EDT Pharmacy verified in [facility] Patient has been identified by name and date of : Yes Patient requesting a call when RX is approved and sent to the pharmacy. Please call patient at: [phone] Patient phones for refill(s): Requested Prescriptions Pending [...] Please advise. Luna Pichardo documented in this encounterMemorial [facility]07-07-2023 Instructions* Patient Instructions* Julio Draper MD - 01/07/2023 4:34 PM EDT Try increasing oxygen by 1 LPM if level drops during physical activity. documented in this encounterMemorial [facility]07-07-2023 History of Present illness Narrative* Julio Draper MD - 01/07/2023 4:22 PM EDT This note was created using [employer]. Subjective Sneha Cardenas is a 67 year [...] 1 tablet by mouth daily at bedtime. sditqdfhwlt-kkdiaszqb-omfnuayd (TRELEGY ELLIPTA) 100-62.5-25 mcg inhalation powder Inhale [...] TABLET Julio Draper MD documented in this encounterMemorial [facility]07-07-2023 History of Present illness Narrative* Rosa [...] 07, 2023 3:04 PM documented in this encounterMemorial [facility]06-09-2023 History of Present illness Narrative* Magali Nieves MD - 12/10/2022 2:45 PM EDT Images from the original note were not included. . Respiratory [place] Note Patient name: Sneha Cardenas PCP: Julio [...] deficiency. Patient was recently a dmitted to [facility] with pneumonia. She had fevers, pleuritic chest [...] Imaging / Diagnostic Studies: Reviewed CXR from [facility] which shows cardiomegaly and a left lower [...] 1 tablet by mouth daily at bedtime. eepxsumpqxm-fiqbddnor-hpkvabnx (TRELEGY ELLIPTA) 100-62.5-25 mcg inhalation powder Inhale [...] her liter flow Magali Nieves MD [facility] [place] documented in this encounterMemorial [facility]06-06-2023 Miscellaneous Notes* Telephone Encounter - Abimbola Lewis LPN - 12/07/2022 8:44 AM EDT Detailed message left for patient. She should keep appt on 12/10 for DC follow up. Abimbola Lewis LPN * Telephone Encounter - Luna Grimes - 12/06/2022 4:48 PM EDT Pt had a recent hospital stay for pneumonia d/c 12/03/22 [facility]. She was wondering ifher appt on 12/10/22 would be necessary or would Dr. Nieves want to see her. documented in this encounterMemorial [facility]06-05-2023 History of Present illness Narrative* Ericka Christopher LPN - 12/06/2022 11:08 AM EDT TRANSITION CARE MANAGEMENT (TCM) INITIAL CONTACT [employer] Outreach Provider Action/FYI: TCM Initial contact with patient post discharge, spoke to patient. Patient identified by name and . TRANSITION CARE MANAGEMENT INITIAL OUTREACH DOCUMENTATION: Date of Outreach: 12/06/2022 Outreach Attempt 1: Contact Made Date of Discharge 12/03/2022 Some recent data might be hidden SUMMARY: -Pt discharged from [facility] on 12[facility]22. -Admitted for: LLL pneumonia Do [...] appt 12/10/22 with pulmonology. documented in this encounterMemorial [facility]06-02-[address] Izaguirre [facility] December 03, 2022 9:07am Note Date/Time December 03, 2022 9:04a [facility] Medical Records Department [address] [place] [address] Instructions for Home/Discharge Instructions 12/03/22 0904 MR#: [id number] Acct: [id number] Name: SNEHA CARDENAS Rep #:[id number] : 1955 67 From: Mihai greenfield MD [...] spray INTRANASAL QHS Label Comments: Use 1 [place] in each nostril once daily. Trelegy Ellipta 100-62.5-25 mcg blister with device 1 inh INHALATION DAILY Label Comments: Inhale 1 Puff as instructed once daily. Referrals / Follow Up: Julio Draper MD [Primary Care Provider] - Within 1 Week Disposition Disposition (needs filled in before D/C Order can be placed): Home, Self Care 12/03/22 0907<Electronically signed by Mihai Izaguirre MD>Mihai Izaguirre MD CC: Dr. January Perez DO; Dr. Yemi Celaya MD; Dr. Julio Draper MD ~ Signed [facility] Work Phone: 1(282) 453-396706-01-[address] Celaya [facility] December 02, 2022 1:53pm Note Date/Time December 02, 2022 1:53p [facility] Medical Records Department [address] [place] [address] Progress Note - Hospitalist 12/02/22 1347 MR#: [id number] Acct: [id number] Name: SNEHA CARDENAS Rep #:[id number] : 1955 67 From: Yemi Mckeon PCP: Dr. Julio Draper MD Status:A DM IN [facility] Reason for Visit Reason for Visit: Diagnoses [...] Intake Total 1150 / 1150 5. / 5.00 450 / 450 Output Total 400 / [...] (Auto) 81.1 H, Lymph % (Auto)12.2 L, [place] % (Auto) 5.3, Eos % (Auto) 0.5, [...] hypoxic respiratory failure: Patient is admitted on MedSur floor. Patient on 2 L of home [...] COVID in April 2021 -Follows with Dr. Nieevs at [facility] pulmonary medicine in [place] -Continue home inhalers Seasonal allergies -Continue Singulair -Continue nasal fluticasone History of tobacco abuse -Remote -Encourage continued cessation She also has nonessential tremor but denies history of Parkinson or essential tremor. DVT prophylaxis -Lovenox subcu daily CODE STATUS -Full care code as verified on admission Charges/Coding Visit Charges Inpatient E&M: 62628 Subs Hosp L2 12/02/22 1560 <Electronically signed by Yemi Celaya MD> Cosigner Signature (if applicable): CC: ~ Signed [facility] Work Phone: 1(710) 558-820405-31-[address] Celaya [facility] December 01, 2022 1:20pm Note Date/Time December 01, 2022 7:45a [facility] Medical Records Department [address] [place] [address] Progress Note - Hospitalist 12/01/22 0744 MR#: [id number] Acct: [id number] Name: SNEHA CARDENAS Rep #:[id number] : 1955 67 From: Yemi Mckeon PCP: Dr. Julio Draper MD Status:A DM IN [facility] Reason for Visit Reason for Visit: Diagnoses [...] (Auto) 88.0 H, Lymph % (Auto) 2.1 L,[place] % (Auto) 6.8, Eos % (Auto) 0.2, [...] 92.5 H, Lymph % (Auto) 3.1 L, [place] % (Auto) 2.9, Eos % (Auto) 0.0, [...] of COPD -Follows with Dr. Nieves at [facility] pulmonary medicine in [place] -Continue home inhalers Seasonal allergies -Continue Singulair -Continue nasal fluticasone History of tobacco abuse -Remote -Encourage continued cessation DVT prophylaxis -Lovenox subcu daily CODE STATUS -Full care code as verified on admission Charges/Coding Visit Charges Inpatient E&M: 89737 Subs Hosp L2 12/01/22 1320 <Electronically signed by Yemi Celaya MD> Cosigner Signature (if applicable): CC: ~ Signed [facility] Work Phone: 1(991) 337-694205-30-2023 History and physical note Author Dr. Perez [facility] November 30, 2022 3:42pm Note Date/Time November 30, 2022 12:36 pm [facility] Medical Records Department [address] [facility] [place] [address] H&P Exam - Hospitalist 11/30/22 1233 MR#: [id number] Acct: [id number] Name: SNEHA CARDENAS Rep #:[id number] : 1955 67 From: January Perez DO PCP: Dr. Julio Draper MD Status:A DM IN [facility] HPI - General General Date of Admission: 11/30/22 Date of Service: 11/30/22 Chief Complaint: Fever/Cough HPI Narrative SNEHA CARDENAS, is a 67 F who presented to the emergency department at [facility] on 11/30/2022 with fever, cough, and shortness [...] emergency department request for admission was made. [facility] Medical History Anxiety Asthma Benign essential [...] RDW Std Deviation 43.8, RDW Coeff of Ally 13.2, Plt Count 252, MPV 9.9, Immature Gran % (Auto) 2.600 H, Neut % (Auto) 88.0 H, Lymph % (Auto) 2.1 L,[place] % (Auto) 6.8, Eos % (Auto) 0.2, [...] of COPD -Follows with Dr. Nieves at [facility] pulmonary medicine in [place] -Continue home inhalers Seasonal allergies -Continue Singulair -Continue nasal fluticasone History of tobacco abuse -Remote -Encourage continued cessation DVT prophylaxis -Lovenox subcu daily CODE STATUS -Full care code as verified on admission Charges/Coding Visit Charges Inpatient E&M: 33911 Init Hosp L3 11/30/22 1542 <Electronically signed by January Perez DO> Cosigner Signature (if applicable): CC: Dr. January Perez DO; Dr. Julio Draper MD~ Signed [facility] Work Phone: 1(105) 756-311405-30-[address] Thomas [facility] November 30, 2022 12:35pm Note Date/Time November 30, 2022 11:04 am [facility] Medical Records Department [address] [place] [address] Emergency Department Summary 11/30/22 MR#: [id number] Acct: [id number] Name: SNEHA CARDENAS Rep #:[id number] : 1955 67 From: Zach Thomas MD [...] in 9 years. Her last admission was 2021. She was admitted for hypoxia at that [...] Yes (Cardiac chest pain work-up on Tuesday.) [facility] Medical History Anxiety Asthma Benign essential hypertension [...] 88.0 H Lymph % (Auto) 2.1 L [place]is[place] % (Auto) 6.8 Eos % (Auto) 0.2 [...] Signed: Yair Mcclendon MD at 12:31 EDT Reading Location ID and State: [address] [place] [address] Tel , Service support , Rhythm Strip Rhythm Strip: Sinus Tach Rate: 110 Ectopy: None EKG Initial EKG: Attestation: I personally reviewed and interpreted this EKG as follows: Interpretation: Sinus Rhythm (Rate is 100. TN interval is 178 ms. Cures duration 82 ms. QT duration 230 ms. Dryden is normal. 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 Trelegy Ellipta 100-62.5-25 mcg blister with device 1 inh INHALATION DAILY Label Comments: Inhale 1 Puff as instructed once daily. Primary Care Provider: Julio Draper Referrals: Julio Draper MD [Primary Care Provider] - Disposition Disposition: Acute Care Hospital [facility] What to do if you have Problems For any increased pain, shortness of breath, bleeding, nausea or vomiting, chestpain, or any unexpected problems, contact your Primary Care Provider. Call [facility] ([phone]) or report to the closest Emergency Room. Call 911 if necessary. 11/30/22 1235 <Electronically signed by Zach Thomas MD> Cosigner Signature (if applicable): CC: Dr. Julio Draper MD ~ Signed [facility] Work Phone: 1(335) 879-189805-30-[address] Thomas [facility] November 30, 2022 12:35pm Note Date/Time November 30, 2022 11:04 am [facility] Medical Records Department [address] [place] [id number] Emergency Department Summary 11/30/22 MR#: [id number] Acct: [id number] Name: SNEHA CARDENAS Rep #:[id number] : 1955 67 From: Zach Thomas MD [...] Yes (Cardiac chest pain work-up on Tuesday.) [facility] Medical History Anxiety Asthma Benign essential hypertension [...] 88.0 H Lymph % (Auto) 2.1 L [place]is[place] % (Auto) 6.8 Eos % (Auto) 0.2 [...] follows: Interpretation: Sinus Rhythm (Rate is 100. TN interval is 178 ms. Cures duration 82 ms. QT duration 230 ms. Dryden is normal. 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 Trelegy Ellipta 100-62.5-25 mcg blister with device 1 inh INHALATION DAILY Label Comments: Inhale 1 Puff as instructed once daily. Primary Care Provider: Julio Draper Referrals: Julio Draper MD [Primary Care Provider] - Disposition Disposition: Acute Care Hospital [facility] What to do if you have Problems For any increased pain, shortness of breath, bleeding, nausea or vomiting, chestpain, or any unexpected problems, contact your Primary Care Provider. Call [facility] ([phone]) or report to the closest Emergency Room. Call 911 if necessary. 11/30/22 1235 <Electronically signed by Zach Thomas MD> Cosigner Signature (if applicable): CC: Dr. Julio Draper MD ~ Signed [facility] Work Phone: 1(493) 498-626405-29-2023 Miscellaneous Notes* Telephone Encounter - Genna Malone RN - 11/29/2022 2:44 PM EDT Reason for Call: Fever, nausea, chills, dizziness Outcome: Advised to GO TO ED NOW. Patient verbalized understanding and is NOT agreeable to the plan. Patient states she will wait it out and call her doctor's office tomorrow. Reason for Disposition Dizziness or lightheadedness NURSING JUDGEMENT: Patient was seen at [place] ED Tuesday and told to return for any new/worsening symptoms and development of fever over 100.4 which patient is experiencing. [facility] Tuesday - Fever over 100.4 and [...] OR cause is unknown Protocols used: Chest Vzwq-LZYDJ-SX, Chest Jhlwyb-MXEMW-GC documented in this encounterMemorial [facility]05-[facility] History of Present illness Narrative* Tasha Hurley, RESORT MANAGER.HEAD SAWYER - 11/15/2022 1:42 PM EDT CC: Patient [...] essential tremor COPD (chronic obstructive pulmonary disease) ([facility]) 07/25/2012 FEV1 0.84L (32%), 10/18/2014 DDD (degenerative [...] Laterality Date ARTHROPLASTY TOTAL SHOULDER Right 02/2018 [facility]. Garo Stanford MD BREAST BIOPSY Left [...] 1 tablet by mouth daily at bedtime. bzmovohazmy-jgwanaugg-ucaiuxim (TRELEGY ELLIPTA) 100-62.5-25 mcg inhalation powder Inhale [...] plan. Tasha Hurley APRN.CNP documented in this encounterMemorial Health [facility]05-11-2023 History of Present illness Narrative* Jessie Xavi, RESORT MANAGER.HEAD SAWYER - 11/11/2022 2:39 PM EDT CC: Patient [...] essential tremor COPD (chronic obstructive pulmonary disease) ([facility]) 07/25/2012 FEV1 0.84L (32%), 10/18/2014 DDD (degenerative [...] Laterality Date ARTHROPLASTY TOTAL SHOULDER Right 02/2018 [facility]. Garo Stanford MD BREAST BIOPSY Left [...] 1 tablet by mouth daily at bedtime. omqnrdntxoy-hglfielaj-odoaqric (TRELEGY ELLIPTA) 100-62.5-25 mcg inhalation powder Inhale [...] plan. Jessie Hurley APRN.CNP documented in this encounterMemorial Health [facility]05-05-2023 Nurse Note* Estella Oliva LPN - 11/05/2022 5:02 PM EDT Waist Circumference: 40 inches Estella Oliva LPN documented in this encounterMemorial Health [facility]05-05-2023 Instructions* Patient Instructions* Julio Draper MD - 11/05/2022 4:52 PM EDT Advance Directive Forms Advanced Directives Forms (Malaysian) FORMS: [email or web address]-uxtiys-iuhy-yzwwk-mu-plbjykmc.pdf INFORMATIONAL BROCHURE: [email or web address]/-/scassets/files/org/patients-visitors/inform ation/advance-directives.ashx?la=en Advance Directives (non-Malaysian) FORMS: [email or web address]/patients/information/vjmcnxb-yqmldjntc-yvhhb/adva nce-directives#forms-tab Please bring completed forms to your next appointment or email them to [email or web address]. Patient Resources How to Get Started Talking with Loved Ones about your Wishes at the End of Life https://theconversationproject.org/wp-content/uploads//ConversationProjec q-VwfjdVhncwtrMkj-Quhqjoo.pdf How to Navigate Conversations with your Care Team around your Preferences [email or web address] documented in this encounterMemorial Health [facility]05-05-2023 History of Present illness Narrative* Julio Draper MD - 11/05/2022 4:29 PM EDT This note was created using [employer] Group[employer]. Subjective Patient presents with: Yearly Exam Sneha [...] essential tremor COPD (chronic obstructive pulmonary disease) ([facility]) 07/25/2012 FEV1 0.84L (32%), 10/18/2014 DDD (degenerative [...] Laterality Date ARTHROPLASTY TOTAL SHOULDER Right 02/2018 [facility]. Garo Stanford MD BREAST BIOPSY Left [...] 1 tablet by mouth daily at bedtime. ofzrwrjxjcm-tqinlttyr-tllewpzo (TRELEGY ELLIPTA) 100-62.5-25 mcg inhalation powder Inhale [...] 20) Julio Draper MD documented in this encounterMemorial Health [facility]04-22-2023 Miscellaneous Notes* Telephone Encounter - Anushka [...] Thank you. Genna Sarmiento documented in this encounterMemorial Health [facility]03-10-2023 Miscellaneous Notes* Telephone Encounter - Ericka [...] advise. Luna Kelly Pss documented in this encounterMemorial Health [facility]01-28-2023 Miscellaneous Notes* Telephone Encounter - Anushka [...] Thank you. Jacinta Luna documented in this encounterMemorial Health [facility]11-22-2022 History of Present illness Narrative* Magali Nieves MD - 05/25/2022 1:30 PM EST Images from the original note were not included. . [facility] [place] Note Patient name: Sneha Cardenas PCP: Julio [...] DATE OF EXAM: May 25 2022 1:28PM [facility] 0541 - CT CHEST WO IVCON / [...] the upper abdomen demonstrates no interval changes. Machine Tender (topogram) images: No additional findings. IMPRESSION: Interval resolution of previously seen groundglass opacities in the right lower lobe. Moderate emphysema. A few stable lung nodules as described above. No new nodules seen. Remote granulomatous disease. I personally reviewed the images and agree with the above assessment PAST MEDICAL HISTORY Diagnosis Date Asthma Benign essential tremor COPD (chronic obstructive pulmonary disease) ([facility]) 07/25/2012 FEV1 0.84L (32%), 10/18/2014 DDD (degenerative [...] (FLONASE) 50 mcg/actuation nasal spray Use 1 Hopewell in each nostril once daily. montelukast (SINGULAIR) 10 mg tablet Take 1 tablet by mouth daily at bedtime. poslefinbml-rvehplprb-gkexqlna (TRELEGY ELLIPTA) 100-62.5-25 mcg inhalation powder Inhale [...] from supplemental oxygen Magali Nieves MD [facility] [place] documented in this encounterMemorial Health [facility]11-22-2022 History of Present illness Narrative* Jacinto [...] 25, 2022 2:17 PM documented in this encounterMemorial Health [facility]10-31-2022 History of Present illness Narrative* Julio [...] as instructed every 4 hours as needed. ovdzhrwvuxs-incpjxxkm-ocmzftik (TRELEGY ELLIPTA) 100-62.5-25 mcg inhalation powder Inhale [...] (FLONASE) 50 mcg/actuation nasal spray Use 1 Hopewell in each nostril once daily. No current [...] or rales. Comments: On O2 via tank, [place] Musculoskeletal: Right lower leg: No edema. Left [...] SEASONAL QUADRIVALENT HIGH DOSE AGE 65+ - [employer] COVID-19 BIVALENT BOOSTER VACCINE, AGE 12+ YR [...] <130/80 Julio Draper MD documented in this encounterMemorial Health [facility]10-20-2022 Miscellaneous Notes* Telephone Encounter - Any Chu RN - 04/22/2022 1:11 PM EDT Pt called in asking for an update on below. Notified requested paperwork was faxed today 04/22/22. Pt verbalized understanding * Telephone Encounter - Jacinto Solorio LPN - 04/22/2022 12:58 PM EDT Faxed demographic sheet to [facility]. Jacinto Solorio LPN * Telephone Encounter - Jacinto Solorio LPN - 04/22/2022 12:54 PM EDT [facility] with [facility] called. Verified name and date of of patient. Per [facility] they have O2 Order but need demographics for patient. Need demographics faxed to . Jacinto Solorio LPN documented in this encounterMemorial Health [facility]10-20-2022 Miscellaneous Notes* Telephone Encounter - Luna Swartz PA-C - 04/22/2022 11:19 AM EDT Printed and signed new order. If [facility] does not accept it, patient has an upcoming appointment with Dr. Nieves that we can add an oximetry with ambulation. Paulette * Telephone Encounter - Abimbola Lewis LPN - 04/21/2022 10:52 AM EDT Will forward to Paulette for her return to clinic . Last order from January sent to [facility]. Abimbola Lewis LPN * Telephone Encounter - Bindu Acuña Ma - 04/21/2022 10:01 AM EDT Patient called in asking for oxygen order, office notes and insurance card to be faxed to [facility] at [phone]. documented in this encounterMemorial Health [facility]10-19-2022 Miscellaneous Notes* Telephone Encounter - Franky [...] patient. Grace Farr Pss documented in this encounterMemorial Health [facility]07-28-2022 Miscellaneous Notes* Telephone Encounter - Luna Swartz PA-C - 01/28/2022 10:55 AM EDT Script printed and signed. May be FAXED to [facility]. Paulette * Telephone Encounter - Rachel Woodard RN - 01/27/2022 11:17 AM EDT Pt called in and reports that [facility] needs her to send in a new prescription for her oxygen. She states the old one was from the hospital when she was in with Covid and it is about to . Please send new order for O2 to [facility] at [phone]. documented in this encounterMemorial Health [facility]07-21-2022 History of Present illness Narrative* Luna Swartz PA-C - 01/21/2022 3:22 PM EDT [facility] [place], 01/21/2022: Name: Sneha Cardenas : 1955 The patient is here by herself. HPI: Sneha Cardenas is a 66 yo female former smoker, 16-smsz-nozfi with PMH significant for COPD, benign essential [...] vertigo. Was directed to go to the for further evaluation. CTA negative for PE. [...] answers. Luna Swartz PA-C documented in this encounterMemorial Health [facility]07-21-2022 Nurse Note* Abimbola Lewis LPN - 01/21/2022 3:20 PM EDT Intake information documented in the prior visit with RANGEL Leone today. documented in this encounterMemorial Health [facility]07-21-2022 Procedure note* RANGEL Leone - 01/21/2022 [...] TIME: 3:19 PM Comment: documented in this encounterMemorial Health [facility]07-21-2022 History of Present illness Narrative* RANGEL Leone - 01/21/2022 3:04 PM EDT PULM FUNCTION SMARTBLOCK: Provider: Luna Swartz PA-C Assisting Tech: RANGEL Leone Oximetry - Ambulation: 1 documented in this encounterMemorial Health [facility]07-08-2022 Miscellaneous Notes* Telephone Encounter - Luna Swartz PA-C - 01/08/2022 9:16 AM EDT Order placed * Telephone Encounter - Abimbola Lewis LPN - 01/08/2022 9:09 AM EDT Spoke with patient. We will do updated oximetry on 01/21 at her office visit to confirm need and then contact [facility]. Please place order. Abimbola Lewis LPN * Telephone Encounter - Bindu Acuña Ma - 01/08/2022 8:15 AM EDT Patient called in stating she received a letter from [facility] stating they need more information to get her supplies and oxygen covered. She asked that the office reach out to [facility] at [phone] to give more information. documented in this encounterMemorial Health [facility]05-12-2022 History of Present illness Narrative* Asia Jiménez APRN.NEGOTIATIONS DIRECTOR - 11/12/2021 1:00 PM EDT SUBJECTIVE: SHINGRIX VACCINE(1 of 2) Never done ADVANCE DIRECTIVE DISCUSSION Never done HPI Sneha Cardenas is a 66 year old female. PMH signicant for ACTIVE PROBLEM LIST Essential Tremor Environmental Allergies Copd With Asthma (Hcc) Hyperlipidemia Age-Related Osteoporosis Without Current Pathological Fracture PCP: Julio Draper MD Presents today with report of vertigo and low back pain. Seen at [facility] for increased shortness of breath and dizziness on 11/02/2021 D-dimer elevated. CTA chest completed to exclude PE.No evidence of pulmonary embolism. Findings suggestive of mild scarring at the lung bases. She was treated with burst course of prednisone. 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 Dizziness abated while in ER with treatment, [...] to [address] [place] piano case maker COPD and asthma. She reports having nausea [...] (FLONASE) 50 mcg/actuation nasal spray, Use 1 Hopewell in each nostril once daily. montelukast (SINGULAIR) 10 mg tablet, Take 1 tablet by mouth daily at bedtime. nrdvludrjx-szqmlgaw-hlfuwkwvuh (BREZTRI AEROSPHERE) 160-9-4.8 mcg/actuation HFA aerosol inhaler, [...] essential tremor COPD (chronic obstructive pulmonary disease) ([facility]) 07/25/2012 FEV1 0.84L (32%), 10/18/2014 DDD (degenerative [...] Level: 3 - Low documented in this encounterMemorial Health [facility]05-02-2022 History of Present illness Narrative* Rachel Mayo APRN.HEAD SAWYER - 11/02/2021 11:28 AM EDT Subjective HPI [...] Laterality Date ARTHROPLASTY TOTAL SHOULDER Right 02/2018 [facility]. Garo Stanford MD BREAST BIOPSY Left [...] 1 tablet by mouth daily at bedtime. jsnvthhcon-btncjmxk-woripexppm (BREZTRI AEROSPHERE) 160-9-4.8 mcg/actuation HFA aerosol inhaler Inhale 2 Puffs as instructed twice daily. ipratropium-albuterol (DUONEB) 0.5 mg-3 mg(2.5 mg base)/3 mL nebu Inhale 3 mL as instructed every 4hours as needed for wheezing/shortness of breath. albuterol HFA (PROAIR HFA) 90 mcg/actuation inhaler Inhale 2 Puffs as instructed every 4 hours as needed. fluticasone (FLONASE) 50 mcg/actuation nasal spray Use 1 Hopewell in each nostril once daily. albuterol (PROVENTIL) [...] negative. Radiologist IMPRESSION: No acute radiographic abnormality. Offset Plate Maker: JING Transcribe Date/Time: Nov 02 2021 [...] will go to ER. Report sent to [facility] via ER Passport. Rachel Mayo APRN.CNP documented in this encounterMemorial Health [facility]04-13-2022 Instructions* Patient Instructions* Ev Hinkle APRN.CNP - 10/14/2021 10:47 AM EDT Ear Infection [...] contagious, but need treatment. documented in this encounterMemorial Health System [facility]04-13-2022 History of Present illness Narrative* Ev [...] history is provided by the patient. No financial center manager was used. Ear Problem Review of Systems [...] essential tremor COPD (chronic obstructive pulmonary disease) ([facility]) 07/25/2012 FEV1 0.84L (32%), 10/18/2014 DDD (degenerative [...] Laterality Date ARTHROPLASTY TOTAL SHOULDER Right 02/2018 [facility]. Garo Stanford MD BREAST BIOPSY Left [...] 1 tablet by mouth daily at bedtime. ojmquewqfl-bwiicxld-whmkgznupu (BREZTRI AEROSPHERE) 160-9-4.8 mcg/actuation HFA aerosol inhaler Inhale 2 Puffs as instructed twice daily. ipratropium-albuterol (DUONEB) 0.5 mg-3 mg(2.5 mg base)/3 mL nebu Inhale 3 mL as instructed every 4hours as needed for wheezing/shortness of breath. albuterol HFA (PROAIR HFA) 90 mcg/actuation inhaler Inhale 2 Puffs as instructed every 4 hours as needed. fluticasone (FLONASE) 50 mcg/actuation nasal spray Use 1 Hopewell in each nostril once daily. albuterol (PROVENTIL) [...] dizzy. Ev Hinkle APRN.MARIAN documented in this encounterMemorial Health [facility]10-19-2021 History of Present illness Narrative* Rosa [...] 21, 2021 10:40 AM documented in this encounterMemorial Health [facility]12-01-2016 History of Past illness Narrative* Problem [...] of this encounter (statuses as of 10/14/2021) [facility] of Past illness Narrative* Problem [...] of this encounter (statuses as of 11/02/2021) [facility] of Past illness Narrative* Problem [...] of this encounter (statuses as of 11/12/2021) [facility] of Past illness Narrative* Problem [...] of this encounter (statuses as of 01/08/2022) [facility] of Past illness Narrative* Problem [...] of this encounter (statuses as of 01/21/2022) [facility] of Past illness Narrative* Problem [...] of this encounter (statuses as of 01/21/2022) [facility] of Past illness Narrative* Problem [...] of this encounter (statuses as of 01/28/2022) [facility] of Past illness Narrative* Problem [...] of this encounter (statuses as of 04/21/2022) [facility] of Past illness Narrative* Problem [...] of this encounter (statuses as of 04/22/2022) [facility] of Past illness Narrative* Problem [...] of this encounter (statuses as of 04/22/2022) [facility] of Past illness Narrative* Problem [...] of this encounter (statuses as of 05/03/2022) [facility] of Past illness Narrative* Problem [...] of this encounter (statuses as of 05/31/2022) [facility] of Past illness Narrative* Problem [...] of this encounter (statuses as of 05/31/2022) [facility] of Past illness Narrative* Problem [...] of this encounter (statuses as of 06/14/2022) [facility] of Past illness Narrative* Problem [...] of this encounter (statuses as of 08/02/2022) [facility] of Past illness Narrative* Problem [...] of this encounter (statuses as of 09/10/2022) [facility] of [facility] illness Narrative* Problem [...] of this encounter (statuses as of 10/11/2022) [facility] illness Narrative* Problem [...] of this encounter (statuses as of 10/25/2022) [facility] illness Narrative* Problem [...] of this encounter (statuses as of 11/07/2022) [facility] illness Narrative* Problem [...] of this encounter (statuses as of 11/12/2022) [facility] of [facility] illness Narrative* Problem [...] of this encounter (statuses as of 11/15/2022) [facility] illness Narrative* Problem [...] of this encounter (statuses as of 11/29/2022) [facility] illness Narrative* Problem [...] of this encounter (statuses as of 12/11/2022) [facility] illness Narrative* Problem [...] of this encounter (statuses as of 12/06/2022) [facility] illness Narrative* Problem [...] of this encounter (statuses as of 12/07/2022) [facility] illness Narrative* Problem [...] of this encounter (statuses as of 01/08/2023) [facility] [facility] History of Past illness Narrative* Problem [...] of this encounter (statuses as of 01/19/2023) [facility] History of Past illness Narrative* Problem [...] of this encounter (statuses as of 02/16/2023) [facility] History of Past illness Narrative* Problem [...] of this encounter (statuses as of 02/22/2023) [facility] History of Past illness Narrative* Problem [...] of this encounter (statuses as of 03/03/2023) [facility] History of Past illness Narrative* Problem [...] of this encounter (statuses as of 04/27/2023) [facility] History of Past illness Narrative* Problem [...] of this encounter (statuses as of 2023) [facility] History of Past illness Narrative* Problem [...] of this encounter (statuses as of 05/26/2023) [facility] History of Past illness Narrative* Problem [...] of this encounter (statuses as of 05/30/2023) [facility] History of Past illness Narrative* Problem [...] of this encounter (statuses as of 06/17/2023) [facility] History of Past illness Narrative* Problem [...] of this encounter (statuses as of 06/18/2023) [facility] History of Past illness Narrative* Problem [...] of this encounter (statuses as of 08/09/2023) [facility] History of Past illness Narrative* Problem [...] of this encounter (statuses as of 08/10/2023) [facility] History of Past illness Narrative* Problem [...] of this encounter (statuses as of 08/10/2023) [facility] History of Past illness Narrative* Problem [...] of this encounter (statuses as of 08/15/2023) [facility] History of Past illness Narrative* Problem [...] of this encounter (statuses as of 08/17/2023) [facility] History of Past illness Narrative* Problem [...] of this encounter (statuses as of 08/22/2023) [facility] History of Past illness Narrative* Problem [...] of this encounter (statuses as of 08/23/2023) [facility] History of Past illness Narrative* Problem [...] of this encounter (statuses as of 08/23/2023) [facility] Author Guido Oliveira [facility] June 20, 2023 11:25am Note Date/Time June 20, 2023 10:22am [facility] Medical Records Department [address] [place] [address] Emergency Department Summary 06/20/23 MR#: [id number] Acct: [id number] Name: SNEHA CARDENAS Rep #:[id number] : 1955 68 From: Guido Oliveira MD PCP: Dr. Julio Draper MD Status:R EG ER Location: ED HPI History of Present Illness Chief Complaint: Alt LOC Narrative Narrative: 68-year-old female, past medical history of COPD, was recently released from [facility]. She states that initially, she had coming [...] but states she might feel generally weak. [facility] Medical History Anxiety Asthma Benign essential hypertension [...] 71.4 H Lymph % (Auto) 17.6 L [place] % (Auto) 7.9 Eos % (Auto) 1.8 [...] healthcare provider: Hospitalist (Dr. Edis Mayo) and Medical Collections (Dr. Antunez, gastroenterology) Critical Care Time Critical Care Time: Yes Critical care time (excluding procedures): 30-74 minutes (32 minutes), Includingtime spent:, Discussing w/Patient &/or Family/Wool And Pelt Grader, Discussing w/Consultants, Arranging Admission or Transfer and Performing Direct Patient Care at Bedside Discharge Plan Dx/Rx/DC Orders Clinical Impression: Anemia requiring transfusions, Bleeding ulcer, Syncope Disposition Disposition: Acute Care Hospital [facility] What to do if you have Problems For any increased pain, shortness of breath, bleeding, nausea or vomiting, chestpain, or any unexpected problems, contact your Primary Care Provider. Call [facility] ([phone]) or report to the closest Emergency Room. Call 911 if necessary. 06/20/23 1125 <Electronically signed by Guido Oliveira MD> Cosigner Signature (if applicable): CC: Dr. Julio Draper MD ~ Signed [facility] Work Phone: Discharge summary Author Hoang Foster [facility] Note Date/Time April 14, 2025 1 2:30am [facility] Medical Records Department [address] [place] [address] Emergency Department Summary 04/14/25 MR#: [id number] Acct: [id number] Name: SNEHA CARDENAS Rep #:[id number] : 1955 69 From: Hoang Foster DO PCP: Dr. Julio Draper MD Status:D EP ER Location: ED HPI History of Present Illness Chief Complaint: Chest Pain Informant: patient and spouse/S.O. Narrative Narrative: Patient is a 69-year-old female with past medical history of end-stage renal disease on dialysis as well as hypertension proximal atrial fibrillation and COPD. She states she will experience chest discomfort frequently and is on Imdur. She states she awoke this morning and felt midsternal chest pain and therefore took her Imdur and it resolved. However this evening the chest pain returned and this time felt like a jolt. She states the pain was more intense and was not the typical pain she is used to. She states that the pain did improve aftershe took a home nitro and aspirin but as the pain was different from her recurrent or chronic symptoms she presents for evaluation. [facility] Medical History End stage renal disease on [...] History acid 0.8 mg tablet (Galina-Jose Elias) acetaminophen 650 mg 650 mg PO Q6H PRN pain 07/2310/31/24 History tablet,extended release (8 Hour Pain Reliever) ipratropium 0.5 mg-albuterol 3 mg 3 ml continuous nebu lization Q6H 08/06/24 10/30/24 History (2.5 mg base)/3 mL nebulization PRN PRN wheezing soln pantoprazole 40 mg tablet,delayed 40 mg PO DAILY 08/0610/30/24 History release alendronate 70 mg tablet 70 mg PO QWEEK 10/31/24 04/11/25 History calcium acetate(phosphat bind) 667 667 mg PO TID 10/3110/30/24 History mg capsule fluticasone fur. 200 mcg-umeclid 1 ea inhalation DAILY 10/31/24 10/30/24 History 62.5 mcg-vilant 25 mcg inhalat.powder (Trelegy Ellipta) ferrous sulfate 325 mg (65 mg 325 mg PO QDAY 11/01/24 Unknown History iron) tablet,delayed release ergocalciferol (vitamin D2) 1,250 1,250 mcg PO QWEEK 0 01/24/25 Unknown History mcg (50,000 unit) capsule sucralfate 1 gram tablet 1 g PO DAILY PRN GI 01/24/25 Unknown History hydrocodone-acetaminophen 5-325mg 1 tab PO Q6H PRN PRN Pain 3 days 02/09/25 Unknown Rx 5mg-325mg #10 TABLETS Allergy/AdvReac Type Severity Reaction Status Date / Time cephalexin monohydrate (From Allergy Chest Verified 04/13/25 21:53 Keflex) tightness vancomycin AdvReac Mild Itching Verified 04/13/25 21:53 Family History Other Adopted Surgical History Hx [...] Type: coffee Number of servings: 1 ROS ROS ED Constitutional Constitutional ED: Denies chills or fever(s) Eyes Eyes: Denies blurry vision or change in vision ENT ENT ED: Denies sore throat Cardiovascular Cardiovascular: Reports chest pain; Denies palpitations or racing heartbeat Respiratory/Chest Respiratory/Chest: Reports dyspnea and other Details: Patient reports shortness of breath is chronic in nature ; Denies cough Gastrointestinal Gastrointestinal: Denies abdominal pain, diarrhea, nausea or vomiting Musculoskeletal Musculoskeletal: Denies back pain Integumentary Denies rash Neurologic Neurologic: Denies headache(s) EXAM Physical Exam Const Vital Signs: 04/13/25 21:50 04/13/25 22:00 04/13/25 22:50 Temperature 99 F Temperature Source Oral Pulse Rate 94 88 Respiratory Rate 16 18 Respiratory Effort Normal Blood Pressure 159/70 H 111/57 L Blood Pressure Mean 99 75 Pulse Ox 98 98 Oxygen Delivery Method Room Air Nasal Cannula Oxygen Flow Rate (L/min) 3 04/13/25 23:00 04/14/25 00:00 04/14/25 00:17 Temperature 98.9 F Temperature Source Pulse Rate 90 87 86 Respiratory Rate 18 18 18 Respiratory Effort Blood Pressure 128/57 H 116/56 L 134/64 H Blood Pressure Mean 80 76 87 Pulse Ox 91 97 98 Oxygen Delivery Method Nasal Cannula Oxygen Flow Rate (L/min) 3 Positive well nourished and well developed General Appearance ED: well developed; Negative for pallor HEENT HEENT Narrative: Normocephalic atraumatic Eyes PERRL and EOMs intact bilaterally General Eye ED: Negative for scleral icterus Neck supple Chest Wall Chest Narrative: No bony deformity or subcutaneous emphysema noted There is reproducible right anterior sternal chest pain with palpation but the patient states is the same pain she has been experiencing No overlying soft tissue changes to suggest trauma or infection Resp normal respiratory effort Resp Narrative: Breath sounds are diminished throughout with rhonchi and faint expiratory wheezing consistent history of COPD but no signs of respiratory distress Cardio regular rate and regular rhythm Rate: other Other Details: Heart is regular rate and rhythm with occasional ectopic beat noted GI normal to inspection, nondistended, normoactive bowel sounds, non-tender, non-distended and no masses GI Narrative: No voluntary guarding or rigidity or pulsatile mass Auscultation: normoactive bowel sounds Palpation: soft Extremity normal to inspection Neuro oriented x3, CN's II-XII intact bilaterally and no sensory deficits noted Sensorium / Orientation: alert Motor Exam: strength 5/5 throughout Psych mental status grossly normal Skin no rashes or lesions noted General Skin Exam: Negative for jaundice or pallor MDM MDM MDM Narrative Medical decision making narrative: Patient arrived to the ER mildly hypertensive but has a past medical history of this. She has known coronary artery disease and takes nitro secondary to recurrent chest discomfort. However she reported her chest pain was different from her chronic in order to ensure this is not acute coronary syndrome versus cardiac dysrhythmia versus lung pathology such as pneumonia or pneumothorax I did elect to perform basic laboratory studies with chest x-ray. The patient's initial and delta troponin were 52 and chart review reveals that this is near her baseline value and therefore without elevation or significant derangement from her baseline I have low concern for ACS. Her EKG also showed no sign of cardiac dysrhythmia or ischemic finding. Chest x- ray revealed no lung pathologysuch as pneumonia or pneumothorax. Her creatinine is elevated consistent with end-stage renal disease on dialysis but is near her baseline and there are no clinically significant electrolyte abnormality. She also reports she has had spontaneous improvement of symptoms. Therefore at this time without cardiac dysrhythmia or elevation to her troponin or lung pathology noted I do not feel need for further intervention and she is otherwise safe for discharge History & Record Review Discussion w/independent historian: Patient and Significant other Lab Data Attestation: I reviewed the patient's lab results. Labs: Laboratory Results - last 24 hr 04/13/25 04/13/25 21:20 23:20 WBC 11.7 H RBC 3.81 L Hgb 11.4 L Hct 36.0 L MCV 94.5 MCH 29.9 MCHC 31.7 L RDW Std Deviation 47.2 H RDW Coeff of Laly 13.5 Plt Count 223 MPV 11.0 Immature Gran % (Auto) 0.200 Neut % (Auto) 63.4 Lymph % (Auto) 21.5 [place] % (Auto) 10.9 H Eos % (Auto) 3.3 Baso % (Auto) 0.7 Absolute Neuts (auto) 7.4 Absolute Lymphs (auto) 2.51 Nucleated RBC % 0 Sodium 141 Potassium 3.7 Chloride 99 Carbon Dioxide 28.5 Anion Gap 13 BUN 37 H Creatinine 3.46 H Estim Creat Clear Calc 14.63 L Est GFR (MDRD) Non-Af 14 L BUN/Creatinine Ratio 10.6 Glucose 109 H Calcium 9.5 Phosphorus 4.3 Magnesium 2.2 Troponin T High Sens 52 H D Troponin T Hi Sens 2 Hr 52 H Radiography Diagnostic Testing: Clinical Impression(s) from Imaging Studies Chest X-Ray 04/13/25 22:35 IMPRESSION: No Acute Findings. Reading Location: [facility] Chest x-ray as interpreted by the emergency medicine physician reveals no acute infiltrate pneumothorax or pleural effusion Discharge Plan Triage Chief Complaint: Chest Pain ED Provider: Hoang Foster Dx/Rx/DC Orders Clinical Impression: Nonspecific chest pain, ESRD (end stage renal disease) on dialysis, Essential hypertension, Hyperlipidemia, COPD (chronic obstructive pulmonary disease) Instructions: ED Chest Pain, Uncertain Cause Prescriptions: No Action nitroglycerin 0.4 mg tablet, sublingual 0.4 mg sublingual Q5-15M PRN (Reason: chest pain) Rx Instructions: do not exceed 3 doses per episode isosorbide mononitrate 60 mg tablet extended release 24 hr 60 mg PO DAILY atorvastatin 40 mg tablet 40 mg PO QHS buspirone 10 mg tablet 10 mg PO QHS ferrous sulfate 325 mg (65 mg iron) tablet,delayed release (DR/EC) 325 mg PO QDAY ergocalciferol (vitamin D2) 1,250 mcg (50,000 unit) capsule 1,250 mcg PO QWEEK albuterol sulfate [Ventolin HFA] 1 INHALER inhaler 2 puff inhalation Q4H PRN PRN (Reason: Shortness Of Breath) Patient Comments: shortness of breath montelukast 10 MG tablet 10 mg PO QHS fluticasone propionate 50 mcg/actuation spray,suspension 2 spray INTRANASAL QHS Patient Comments: Use 1 [place] in each nostril once daily. Galina-Jose Elias 0.8 mg tablet 1 tab PO DAILY sucralfate 1 gram tablet 1 g PO DAILY PRN (Reason: GI) ipratropium-albuterol 0.5 mg-3 mg(2.5 mg base)/3 mL solution for nebulization 3 ml continuous nebulization Q6H PRN PRN (Reason: wheezing) pantoprazole 40 mg tablet,delayed release (DR/EC) 40 mg PO DAILY acetaminophen [8 Hour Pain Reliever] 650 mg tablet extended release 650 mg PO Q6H PRN (Reason: pain) calcium acetate(phosphat bind) 667 mg capsule 667 mg PO TID alendronate 70 mg tablet 70 mg PO QWEEK Trelegy Ellipta 200-62.5-25 mcg blister with device 1 ea inhalation DAILY hydrocodone-acetaminophen 5-325 mg tablet 1 tab PO Q6H PRN PRN (Reason: Pain) 3 Days Qty: 10 0RF Primary Care Provider: Julio Draper Referrals: Julio Draper MD [Primary Care Provider, Internal Medicine] Activity Restrictions/Additional Instructions: Your workup today revealed no sign of active heart damage or cardiac dysrhythmia. 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 Call [facility] ([phone]) or report to the closest Emergency Room. Call 911 if necessary. 04/14/25 0152 <Electronically signed by Hoang Foster DO> Cosigner Signature (if applicable): CC: Dr. Julio Draper MD ~ Signed [facility] Work Phone: Evaluation note* Diagnosis Bilateral impacted cerumen- Primary Impacted cerumen [facility] Diagnosis Cough- Primary SOB (shortness of breath) Shortness of breath documented [facility] [place] [facility]* Diagnosis Acute right-sided low back pain without sciatica- Primary Vertigo Dizziness and giddiness Post-nasal drip Postnasal drip Environmental allergies Other allergy, other than to medicinal agents COPD with asthma (HCC) Chronic obstructive asthma, unspecified [facility] Diagnosis COVID-19- Primary Stage 3 severe COPD by GOLD classification (HCC) [facility] Diagnosis COVID-19 Stage 3 severe COPD by GOLD classification (HCC) documented [facility] this encounter [facility] [place] [facility]* Diagnosis Stage 3 severe COPD by GOLD classification (HCC)- Primary Former smoker Personal history of tobacco use, presenting hazards to health COVID-19 Lung nodules Other nonspecific abnormal finding of lung field documented [facility] Diagnosis COVID-19- Primary Stage 3 severe COPD by GOLD classification (HCC) documented [facility] this encounter [facility] [place] [facility]* Diagnosis Chronic obstructive pulmonary disease, unspecified COPD type (HCC)- Primary documented in this encounter [facility] [place] [facility]* Diagnosis COPD with asthma (HCC)- Primary [...] diagnosis of hypertension [facility] [place] [facility] Diagnosis Lung nodules- Primary Other nonspecific abnormal finding of lung field Centrilobular emphysema (HCC) Other emphysema Former cigarette smoker Personal history of tobacco use, presenting hazards to health [facility] [place] [facility]* Diagnosis Stage 3 severe COPD by GOLD classification (HCC)- Primary Lung nodules Other nonspecific abnormal finding of lung field Chronic respiratory failure with hypoxia (HCC) Chronic respiratory failure documented in this encounter [facility] note* Diagnosis Environmental allergies Other allergy, other than to medicinal agents documented [facility] this encounter [facility] [place] [facility]* Diagnosis Encounter for screening mammogram for breast cancer documented [facility] [place] [facility]* Diagnosis Routine medical exam- Primary Routine [...] unspecified single disease [facility] [place] [facility]* Diagnosis COPD with exacerbation (HCC)- Primary Obstructive chronic bronchitis with exacerbation Abnormal breath sounds Abnormal chest sounds documented in this encounter [facility] note* Diagnosis COPD with exacerbation (HCC)- Primary Obstructive chronic bronchitis with exacerbation documented in this encounter [facility] noteNo assessment information availableWSelect Medical [facility] Work Phone: Evaluation note* Diagnosis Onset Date Resolution Status Acute bronchospasm acute Community acquired pneumonia acute Dyspnea on exertion acute Elevated serum creatinine ac inaja Fever and chills acute Hyperglycemia acute Leukocytosis acute Sinus tachycardia acute COPD exacerbation [facility] Work Phone: Evaluation note* Diagnosis Pneumonia of left lower lobe due to infectious organism- Primary COPD, severe (HCC) Chronic airway obstruction, not elsewhere classified Chronic hypoxemic respiratory failure (HCC) Chronic respiratory failure documented in this encounter [facility] note* Diagnosis Chronic respiratory failure with hypoxia (HCC)- Primary Chronic respiratory failure COPD with asthma (HCC) Chronic obstructive asthma, unspecified Environmental allergies Other allergy, other than to medicinal agents documented in this encounter [facility] note* Diagnosis Chronic obstructive pulmonary disease, unspecified COPD type (HCC)- Primary [facility]* Diagnosis Centrilobular emphysema (HCC)- Primary Other emphysema Chronic hypoxemic respiratory failure (HCC) Chronic respiratory failure Former smoker Personal history of tobacco use, presenting hazards to health documented [facility] this encounter [facility] [place] [facility]* Diagnosis COVID-19 Lung nodules Other nonspecific abnormal finding of lung field [facility] [place] [facility]* Diagnosis Lung nodules Other nonspecific abnormal finding of lung field Centrilobular emphysema (HCC) Other emphysema Former cigarette smoker Personal history of tobacco use, presenting hazards to health documented in this encounter [facility] [place] [facility]* Diagnosis COPD with exacerbation (HCC)- Primary Obstructive chronic bronchitis with exacerbation Lung nodules Other nonspecific abnormal finding of lung field documented [facility] this encounter [facility] [place] [facility]* Diagnosis Onset Date Resolution Status Community acquired pneumonia of right lower lobe of lung acute Failure of outpatient treatment acute Lung nodules acute Parapneumonic effusion acute [id number] chronic Acute exacerbation of chroni c obstructive pulmonary disease (COPD) chronic [facility] Work Phone: Evaluation note* Diagnosis Onset Date Resolution Status Acute exacerbation of chroni c obstructive pulmonary disease (COPD) chronic [id number] resolved Community acquired pneumonia of right lower lobe of lung resolved Failure of outpatient treatment resolved GI bleed resolved Parapneumonic effusion resol zbigniew Pleural effusion, right reso lved Anemia requiring transfusions acute Bleeding ulcer acute Syncope acute [facility] Work Phone: Evaluation note* Diagnosis Onset Date Resolution Status [id number] resolved Acute exacerbation of chroni c obstructive pulmonary disease (COPD) resolved Community acquired pneumonia of right lower lobe of lung resolved Failure of outpatient treatment resolved GI bleed resolved Parapneumonic effusion resol zbigniew Pleural effusion, right reso lved Anemia requiring transfusions acute Bleeding ulcer acute Syncope acute [facility] Work Phone: Evaluation note* Diagnosis Onset Date Resolution Status [id number] resolved Acute exacerbation of chroni c obstructive [...] failure chronic Pleural effusion, right reso lved [facility] Work Phone: Evaluation note* Diagnosis Onset Date Resolution Status [id number] resolved Acute exacerbation of chroni c obstructive pulmonary disease (COPD) resolved Community acquired pneumonia of right lower lobe of lung resolved Failure of outpatient treatment resolved GI bleed resolved Parapneumonic effusion resol zbigniew Pleural effusion, right reso lved Anemia requiring transfusions acute Bleeding ulcer acute Syncope acute Acute bronchospasm acute EARNEST (acute kidney injury) ac inaja Anemia requiring transfusions acute Atrial fibrillation acute Dyspnea on exertion acute Elevated blood pressure read ing without diagnosis of hypertension acute Empyema of pleural space acu te Hx of ulcer disease acute Acute exacerbation of chroni c obstructive pulmonary disease chronic Chronic hypoxemic respiratory failure chronic COPD (chronic obstructive pulmonary disease) chronic Pleural effusion, right reso lved [facility] Work Phone: Evaluation note* Diagnosis Paroxysmal atrial fibrillation (HCC)- Primary Atrial fibrillation documented in this encounter [facility] note* Diagnosis Parapneumonic effusion- Primary Other specified forms of effusion, except tuberculous Chronic respiratory failure with hypoxia ([facility]) Chronic respiratory failure Persistent pneumonia Pneumonia, organism unspecified Centrilobular emphysema (HCC) Other emphysema EARNEST (acute kidney injury) (HCC) Acute kidney failure, unspecified Hemodialysis status ([facility]) Renal dialysis status documented in this encounter [facility] note* Diagnosis Pneumonia due to infectious [...] or obstruction NSTEMI (non-ST elevated myocardial infarction) (HCC) Acute myocardial infarction, subendocardial infarction, episode of care unspecified Chronic respiratory failure with hypoxia (HCC) Chronic respiratory failure Anemia requiring transfusions Anemia, unspecified Impacted cerumen of both ears Impacted cerumen Hyperlipidemia, unspecified hyperlipidemia type documented in this encounter [facility] note* Diagnosis Encounter for screening mammogram for breast cancer [facility] [place] [facility] Diagnosis Coronary artery disease involving [place] coronary artery of [place] heart, unspecified whether angina present- Primary Environmental allergies Other allergy, other than to medicinal agents Primary hypertension Unspecified essential hypertension Duodenal ulcer Duodenal ulcer, unspecified as acute or chronic, without hemorrhage, perforation, or obstruction Anxiety about health documented [facility] this [facility] [place] [facility]* Diagnosis Chronic obstructive pulmonary disease with acute exacerbation (HCC)- Primary Obstructive chronic bronchitis with exacerbation Chronic respiratory failure with hypoxia (HCC) Chronic respiratory failure ESRD (end stage renal disease) (HCC) End stage renal disease History of GI bleed Personal history of other diseases of digestive system documented [facility] this [facility] [place] [facility]* Diagnosis Lung nodules Other nonspecific abnormal finding of lung field Parapneumonic effusion Other specified forms of effusion, except tuberculous Persistent pneumonia Pneumonia, organism unspecified documented [facility] [place] [facility]* Diagnosis Centrilobular emphysema (HCC)- Primary Other emphysema Lung nodules Other nonspecific abnormal finding of lung field Chronic hypoxemic respiratory failure (HCC) Chronic respiratory failure Parapneumonic effusion Other specified forms of effusion, except tuberculous Former smoker Personal history of tobacco use, presenting hazards to health Hemodialysis status (HCC) Renal dialysis status documented [facility] this [facility] [place] [facility]* Diagnosis Routine medical exam- Primary Routine general medical examination at a health care facility Chronic obstructive pulmonary disease with acute exacerbation (HCC) Obstructive chronic bronchitis with exacerbation Chronic respiratory failure with hypoxia (HCC) Chronic respiratory failure ESRD (end stage renal disease) (HCC) End stage renal disease Coagulation defect, unspecified (HCC) Coronary artery disease involving [place] coronary artery of [place] heart without angina pectoris Essential tremor Essential and other specified forms of tremor Anemia requiring transfusions Anemia, unspecified Pleural effusion Unspecified pleural effusion documented [facility] this [facility] [place] [facility]* Diagnosis Coronary artery disease involving [place] coronary artery of [place] heart, unspecified whether angina present Hyperlipidemia, unspecified hyperlipidemia type Anxiety about health Primary hypertension Unspecified essential hypertension Duodenal ulcer Duodenal ulcer, unspecified as acute or chronic, without hemorrhage, perforation, or obstruction Environmental allergies Other allergy, other than to medicinal agents [facility] Diagnosis AVM (arteriovenous malformation) of small bowel, acquired- Primary Angiodysplasia of intestine (without mention of hemorrhage) [facility]* Diagnosis Hyperlipidemia, unspecified hyperlipidemia type- [...] mention of hemorrhage) documented in this encounter [facility] note* Diagnosis Hyperlipidemia, unspecified hyperlipidemia type- [...] bronchitis with exacerbation [facility] [place] [facility] Diagnosis Hyperlipidemia, unspecified hyperlipidemia type- Primary [...] effusion, except tuberculous documented [facility] this [facility] [place] [facility]* Diagnosis Hyperlipidemia, unspecified hyperlipidemia type- Primary [...] perforation, or obstruction Coronary artery disease involving [place] coronary artery of [place] heart, unspecified whether angina present Anxiety about health [facility] [place] [facility] Diagnosis Hyperlipidemia, unspecified hyperlipidemia type- Primary [...] to infectious organism documented [facility] this [facility] [place] [facility]* Diagnosis Hyperlipidemia, unspecified hyperlipidemia type- Primary [...] Abnormal chest sounds documented [facility] this encounter [facility] [place] [facility]* Diagnosis Hyperlipidemia, unspecified hyperlipidemia type- Primary [...] postmenopausal status Cough [facility] [place] [facility]* Diagnosis Cough SOB (shortness of breath) [...] Asymptomatic postmenopausal status documented [facility] this [facility] [place] [facility]* Diagnosis Hyperlipidemia, unspecified hyperlipidemia type- Primary [...] of muscle ESRD (end stage renal disease) (HCC) End stage renal disease Primary hypertension Unspecified essential hypertension Coronary artery disease involving [place] coronary artery of [place] heart without angina pectoris Chronic obstructive pulmonary disease with acute exacerbation (HCC) Obstructive chronic bronchitis with exacerbation documented [facility] this encounter [facility] [place] [facility]* Diagnosis Hyperlipidemia, unspecified hyperlipidemia type- Primary [...] of lung field [facility] [place] [facility] Diagnosis Hyperlipidemia, unspecified hyperlipidemia type- Primary [...] fracture Senile osteoporosis documented in this encounter [facility] note* Diagnosis Hyperlipidemia, unspecified hyperlipidemia type- [...] presenting hazards to health ESRD needing dialysis (HCC) End stage renal disease documented in this encounter [facility] note* Diagnosis Onset Date Resolution Status Community acquired pneumonia of right lower lobe of lung acute Failure of outpatient treatment acute GI bleed acute Lung nodules acute Parapneumonic effusion acute Pleural effusion, right acut e [id number] chronic Acute exacerbation of chroni c obstructive pulmonary disease (COPD) [facility] Work Phone: Evaluation note* Diagnosis Hyperlipidemia, unspecified [...] Asymptomatic postmenopausal status Coronary artery disease involving [place] coronary artery of [place] heart, unspecified whether angina present Environmental allergies Other allergy, other than to medicinal agents Duodenal ulcer Duodenal ulcer, unspecified as acute or chronic, without hemorrhage, perforation, or obstruction documented in this encounter [facility] note* Diagnosis Hyperlipidemia, unspecified hyperlipidemia type- [...] (HCC) Atrial fibrillation documented in this encounter [facility] note* Diagnosis Hyperlipidemia, unspecified hyperlipidemia type- [...] pulmonary nodule ESRD (end stage renal disease) ([facility]) End stage renal disease documented in this encounter [facility] note* Diagnosis Hyperlipidemia, unspecified hyperlipidemia type- [...] respiratory failure ESRD (end stage renal disease) ([facility]) End stage renal disease documented in this encounter [facility] note* Diagnosis Hyperlipidemia, unspecified hyperlipidemia type- [...] mild degree ESRD (end stage renal disease) (HCC) End stage renal disease [facility] Diagnosis Hyperlipidemia, unspecified hyperlipidemia type- [...] fracture Senile osteoporosis documented [facility] this encounter [facility] [place] [facility]* Diagnosis Hyperlipidemia, unspecified hyperlipidemia type- Primary [...] imaging of lung [facility] Diagnosis Hyperlipidemia, unspecified hyperlipidemia type- [...] for breast cancer documented in this encounter [facility] [place] [facility]* Diagnosis Hyperlipidemia, unspecified hyperlipidemia type- Primary [...] bronchitis with exacerbation [facility] Diagnosis Hyperlipidemia, unspecified hyperlipidemia type- [...] of pneumonia (recurrent) documented [facility] this [facility] [place] [facility]* Diagnosis Hyperlipidemia, unspecified hyperlipidemia type- Primary [...] to infectious organism [facility] [place] [facility]* Diagnosis Hyperlipidemia, unspecified hyperlipidemia type- Primary [...] imaging of lung [facility] [place] [facility]* Diagnosis Hyperlipidemia, unspecified hyperlipidemia type- Primary [...] bronchitis with exacerbation Coronary artery disease involving [place] coronary artery of [place] heart without angina pectoris Paroxysmal atrial fibrillation (HCC) Atrial fibrillation documented in this encounter [facility] note* Diagnosis Hyperlipidemia, unspecified hyperlipidemia type- [...] Chronic respiratory failure documented in this encounter [facility] note* Diagnosis Hyperlipidemia, unspecified hyperlipidemia type- [...] to health [facility] Diagnosis Hyperlipidemia, unspecified hyperlipidemia type- [...] bronchitis with exacerbation documented [facility] this encounter [facility] [place] [facility]* Diagnosis Hyperlipidemia, unspecified hyperlipidemia type- Primary COPD with asthma (HCC) Chronic obstructive asthma, unspecified Essential tremor Essential and other specified forms of tremor Need for influenza vaccination Need for prophylactic vaccination and inoculation against influenza Need for vaccination Need for prophylactic vaccination and inoculation against unspecified single disease Encounter for screening for osteoporosis Special screening for osteoporosis Asymptomatic postmenopausal status Vision disturbance- Primary Unspecified visual disturbance Hyperlipidemia, unspecified hyperlipidemia type Anxiety about health Screening for depression Medicare annual wellness visit, initial Routine general medical examination at a health care facility [facility] Additional Instructions X-ray right shoulder prosthesis with no hardware malfunction noted. Take pain medicine as prescribed. Follow-up with [facility] with your doctors.[facility] Work Phone: Hospital Discharge instructionsAdditional Instructions Your workup today revealed no sign of active heart damage or cardiac dysrhythmia. Please follow-up with your family doctor and/or charger operator for repeat evaluation and return to the ER should you have any further [facility] Work Phone: Hospital Discharge instructionsAdditional Instructions Follow-up with primary care physician. Return back to ED symptoms change or worsen. Recommend [id number] Mucinex. Tessalon Perles as needed for cough as well. Tylenol as needed for fevers.[facility] Work Phone: Reason for referral (narrative)* Diagnostic Procedure Only (Routine) - Authorized Specialty Diagnoses / Procedures Referred By Contac t Referred To Contact [facility] Diagnoses COVID-19 Stage 3 severe COPD by GOLD classification (HCC) Procedures OXIMETRY WITH AMBULATION NONINVASIVE EAR/PULSE OXIMETRY MULTIPLE Luna Rowell PA-C [address] [address] [facility] [place] [address] [place] [id number] Referral ID Status Reason Start Date Expiration Date Visits Requested Visits Authorized [id number] Authorized Financial Clearance Not Required 01/21/2022 07/03/2022 1 1 [facility] for referral (narrative)* Diagnostic Procedure Only (Routine) - Pending Review Specialty Diagnoses / Procedures Referred By Contac t Referred To Contact BR [facility] Diagnoses Encounter for screening mammogram for breast cancer Procedures AISLINN SCREENING SCREENING MAMMOGRAPHY BI 2-VIEW BREAST INC CAD Julio Draper MD [address] [place] [address] [facility] [address] [place] [phone] Referral ID Status Reason Start Date Expiration Date Visits Requested Visits Authorized [id number] Pending Review Auto-Generat ed Referral 10/06/2022 11/05/2023 1 1 [facility] for referral (narrative)* Diagnostic Procedure Only (Routine) - Closed Specialty Diagnoses / Procedures Referred By Contac t Referred To Contact CT IMAGING Diagnoses COVID-[address] CHEST WO IVCON DIAGNOSTIC COMPUTED TOMOGRAPHY THORAX W/O CNTRST Luna Swartz PA-C [address] [place] [address] Ct Imaging [id number] Referral ID Status Reason Start Date Expiration Date V isits Requested Visits Authorized [id number] Closed Auto-Generate d Referral 05/25/2022 07/03/2022 1 1 [facility] for referral (narrative)* Diagnostic Procedure Only (Routine) - Pending Review Specialty Diagnoses / Procedures [facility] To Contact [facility]CULAR & FUNCTIONAL IMAGING Diagnoses Lung nodules Procedures NM PET/CT SKULL-THIGH INITIAL PET IMAGING CT ATTENUATION SKULL BASE MID-THIGH Luna Swartz PA-C [address] [place] [address] Molecular & Functional Imaging [address] [place] [address] Referral ID Status Reason Start Date Expiration Date Visits Requested Visits Authorized [id number] Pending Review Auto-Generat ed Referral 06/28/2024 1 1 [facility] for referral (narrative)* Diagnostic Procedure Only (Routine) - Pending Review Specialty Diagnoses / Procedures [facility] Referred To Contact [facility] Diagnoses Encounter for screening mammogram for breast cancer Procedures AISLINN SCREENING SCREENING MAMMOGRAPHY BI 2-VIEW BREAST INC CAD Julio Draper MD [address] [place] [address] [facility] [address] [place] [phone] Referral ID Status Reason Start Date Expiration Date Visits Requested Visits Authorized [id number] Pending Review Auto-Generat ed Referral 09/07/2023 10/06/2024 1 1 [facility] for referral (narrative)* Outpatient Procedure (Routine) - New Request Specialty Diagnoses / Procedures [facility] Referred To Contact [facility] Diagnoses AVM (arteriovenous malformation) of small bowel, acquired Procedures ENTEROSCOPY ENTEROSC >2ND PRTN W/ILEUM W/WO COLLJ SPEC SPX Ryan Mchugh MD [address] [place] [address] [facility] [place] [address] [place], [place] [id number] Referral ID Status Reason Start Date Expiration Date Visits Requested Visits Authorized [id number] New Request Auto-Generat ed Referral 02/09/2024 02/08/2025 1 1 [facility] for referral (narrative)* Outpatient Procedure (Routine) - Closed Specialty Diagnoses / Procedures Referred By Contac t Referred To Contact [facility] Diagnoses AVM (arteriovenous malformation) of small bowel, acquired Procedures ENTEROSCOPY ENTEROSC >2ND PRTN W/ILEUM W/WO COLLJ SPEC SPX Ryan Mchugh MD [address] [place] [id number] [place] [id number] Referral ID Status Reason Start Date Expiration Date V isits Requested Visits Authorized [id number] Closed Auto-Generate d Referral 02/09/2024 02/08/2025 1 1 [facility] for referral (narrative)* Diagnostic Procedure Only (Routine) - Authorized Specialty Diagnoses / Procedures Referred By Contac t Referred To Contact XR IMAGING Diagnoses Age-related osteoporosis without current pathological fracture Procedures DXA-AXIAL SKELETON DXA BONE DENSITY STUDY 1/> SITES AXIAL Julio Hamilton MD [address] [place] [address] Xr Imaging [id number] Referral ID Status Reason Start Date Expiration Date Visits Requested Visits Authorized [id number] Authorized Auto-Generat ed Referral 06/14/2025 1 1 [facility] for referral (narrative)No reason for referral information availableWSelect Medical [facility] Work Phone: Reason for visit Narrative* Outpatient Procedure (Routine) - Closed Specialty Diagnoses / Procedures Referred By Contac t Referred To Contact [facility] Diagnoses AVM (arteriovenous malformation) of small bowel, acquired Procedures ENTEROSCOPY ENTEROSC >2ND PRTN W/ILEUM W/WO COLLJ SPEC SPX Ryan Mchugh MD [address] [place] [address] [facility] [place] [address] [place] [address] Referral ID Status Reason Start Date Expiration Date V isits Requested Visits Authorized [id number] Closed Auto-Generate d Referral 02/09/2024 02/08/2025 1 1 [facility] for visit Narrative* Diagnostic Procedure Only (Routine) - Closed Specialty Diagnoses / Procedures Referred By Contac t Referred To Contact Radiology / [facility] Diagnoses Chronic obstructive pulmonary disease with (acute) exacerbation (HCC) ec lobby Procedures RADIOLOGIC EXAM CHEST 2 VIEWS XR CHEST Julio Draper MD [address] [place] [address] [facility] [address] [place] [address] Referral ID Status Reason Start Date Expiration Date Visits Re quested Visits Authorized [id number] Closed 10/31/2023 07/03/2024 1 1 [facility] for visit Narrative* Diagnostic Procedure Only (Routine) - Closed Specialty Diagnoses / Procedures Referred By Contac t Referred To Contact Radiology / [facility] Diagnoses xr chest rm 4 Procedures XR CHEST Pamela Ardon, RESORT MANAGER.[employer]ER [address] [place] [address] [facility] [address] [place] [address] Referral ID Status Reason Start Date Expiration Date Visits Re quested Visits Authorized [id number] Closed 04/21/2021 07/03/2021 1 1 [facility] for visit Narrative* Diagnostic Procedure Only (Routine) - Closed Specialty Diagnoses / Procedures Referred By Contac t Referred To Contact XR IMAGING Diagnoses Age-related osteoporosis without current pathological fracture Procedures DXA-AXIAL SKELETON DXA BONE DENSITY STUDY 1/> SITES AXIAL SKEL Julio Draper MD [address] [place] [address] Phone: tel: fax: [place] [address] Referral ID Status Reason Start Date Expiration Date V isits Requested Visits Authorized [id number] Closed Auto-Generate d Referral 05/15/2024 06/14/2025 1 1 [facility] Summary Purpose Family History Relationship Condition Age at Onset Recorded Date/T nathalia Unknown Family History?- Unknown March 082014 8:08am Family History?- Unknown May 232015 11:45pm Relationship Condition Age at Onset Recorded Date/T nathalia Unknown Family History?- Unknown March 082014 7:08am Family History?- Unknown May 232015 10:45pm Relationship Condition Age at Onset Recorded Date/T nathalia Not Specified Adopted Unknown Advance Directives Documents on File Type Date Recorded Patient Office Rep Expl anation Advance Directive(s) Advance Directive(s) 09/08/2015 9:46 AM Advance Directive(s) 09/04/2015 12:26 PM Advance Directive(s) 08/18/2015 4:01 PM Documents on File Type Date Recorded Patient Office Rep Expl anation Advance Directive(s) Advance Directive(s) 09/08/2015 9:46 AM Advance Directive(s) 09/04/2015 12:26 PM Advance Directive(s) 08/18/2015 4:01 PM Advance Directive Response Recorded Date/ Time Advance Directives No May 4:48pm Living Will No November 28, 2022 1 2:56am Power of Flush Tester No November 28, 2022 12:56am Advance Directive Response Recorded Date/ Time Advance Directives No May 4:48pm Living Will No November 30, 2022 1 1:43am Power of Flush Tester No November 30, 2022 11:43am Advance Directive Response Recorded Date/ Time Advance Directives No May 4:48pm Living Will No November 30, 2022 1 :28pm Power of Flush Tester No November 30, 2022 1:28pm Advance Directive Response Recorded Date/ Time Advance Directives No May 3:48pm Living Will No June 02, 2 023 9:06am Power of Flush Tester No June 02, 2023 9:06am Advance Directive Response Recorded Date/ Time Advance Directives No May 3:48pm Living Will No June 02, 2 023 11:59am Power of Flush Tester No June 02, 2023 11:59am Advance Directive Response Recorded Date/ Time Advance Directives No May 3:48pm Living Will No June 20, 2 023 11:35am Power of Flush Tester No June 20, 2023 11:35am Advance Directive Response Recorded Date/ Time Advance Directives No May 3:48pm Living Will No June 20, 2 023 12:12pm Power of Flush Tester No June 20, 2023 12:12pm Advance Directive Response Recorded Date/ Time Advance Directives No May 3:48pm Living Will No July 05 4 4:21pm Power of Flush Tester No July 05, 2 024 4:21pm Advance Directive Response Recorded Date/ Time Advance Directives No May 3:48pm Living Will No July 07 4 9:02am Power of Flush Tester No July 07, 2 024 9:02am Advance Directive Response Recorded Date/ Time Advance Directives No May 3:48pm Living Will No July 07 4 6:04pm Power of Flush Tester No July 07, 2 024 6:04pm Latest [...] Will No April 09 3:20pm Power of Flush Tester No April 09 024 3:20pm Living Will Yes March 19, 2024 9:45am Power of Flush Tester Yes March 9:45am Living Will Yes May 22 024 11:23am Power of Flush Tester Yes May 22, 2024 11:23am Name of Medical Power of Flush Tester VANESSA CARDENAS May 22, 2024 11:23am Living Will No July 08 7:52am Power of Flush Tester No July 08 7:52am Living Will No August 06 9:55am Power of Flush Tester No August 06, 2024 9:55am Living Will No July 03 024 1:53pm Power of Flush Tester No July 03, 2024 1:53pm Living Will No September 06, 2024 8:26am Power of Flush Tester No September 06 8:26am Advance Directives No September 06 8:26am Living Will No July 23 2:32pm Power of Flush Tester No July 23, 2024 2:32pm Living Will No August 02 11:55pm Power of Flush Tester No August 02, 2024 11:55pm Living Will No September 17, 2024 6:45pm Power of Flush Tester Yes September 17 6:45pm Name of Medical Power of Flush Tester September 17, 2024 6:45pm Advance Directive Response Recorded Date/ Time Living Will No July 08 7:52am Do you have a Healthcare Power of Flush Tester? No July 08, 2024 7:52am Living Will No August 06 9:55am Do you have a Healthcare Power of Flush Tester? No August 06, 2024 9:55am Living Will No September 06, 2024 8:26am Do you have a Healthcare Power of Flush Tester? No September 06, 2024 8:26am Advance Directives No September 06 8:26am Living Will No July 23 2:32pm Do you have a Healthcare Power of Flush Tester? No July 23, 2024 2:32pm Living Will No August 02 11:55pm Do you have a Healthcare Power of Flush Tester? No August 02, 2024 11:55pm Living Will No September 17, 2024 6:45pm Do you have a Healthcare Power of Flush Tester? Yes September 17, 2024 6:45pm Name of Medical Power of Flush Tester September 17, 2024 6:45pm Do you have a Healthcare Power of Flush Tester? No October 31, 2024 10:04am Advance Directive Response Recorded Date/ Time Living Will No September 06, 2024 8:26am Do you have a Healthcare Power of Flush Tester? No September 06, 2024 8:26am Living Will No September 17, 2024 6:45pm Do you have a Healthcare Power of Flush Tester? Yes September 17, 2024 6:45pm Name of Medical Power of Flush Tester September 17, 2024 6:45pm Do you have a Healthcare Power of Flush Tester? No October 31, 2024 10:04am Living Will No January 03, 2025 1 0:02am Do you have a Healthcare Power of Flush Tester? No January 03, 2025 10:02am Advance Directives No January 03 10:02am Advance Directive Response Recorded Date/ Time Do you have a Healthcare Power of Flush Tester? No October 31, 2024 10:04am Living Will No January 03, 2025 1 0:02am Do you have a Healthcare Power of Flush Tester? No January 03, 2025 10:02am Advance Directives No January 03 10:02am Advance Directive Response Recorded Date/ Time Do you have a Healthcare Power of Flush Tester? No October 31, 2024 10:04am Living Will No January 03, 2025 1 0:02am Do you have a Healthcare Power of Flush Tester? No January 03, 2025 10:02am Advance Directives No January 03 10:02am Do you have a Healthcare Power of Flush Tester? No February 09, 2025 2:53pm Advance Directive Response Recorded Date/ Time Do you have a Healthcare Power of Flush Tester? Yes April 13, 2025 10:00pm Name of Medical Power of Flush Tester Cash Cardenas April 13, 2025 10:00pm Living Will No January 03, 2025 1 0:02am Do you have a Healthcare Power of Flush Tester? No January 03, 2025 10:02am Advance Directives No January 03 10:02am Do you have a Healthcare Power of Flush Tester? No February 09, 2025 2:53pm Do you have a Healthcare Power of Flush Tester? Yes April 21, 2025 4:37pm Advance Directive Response Recorded Date/ Time Do you have a Healthcare Power of Flush Tester? Yes April 13, 2025 9:00pm Name of Medical Power of Flush Tester Cash Cardenas April 13, 2025 9:00pm Do you have a Healthcare Power of Flush Tester? No February 09, 2025 1:53pm Do you have a Healthcare Power of Flush Tester? Yes April 21, 2025 3:37pm Advance Directives No January 03 9:02am Reason for Referral Specialty Diagnoses / Procedures Referred By Contmichelet t Referred To Contact Pulmonary and Critical Care Medicine Diagnoses COPD with asthma (HCC) Procedures CONSULT TO PULM/CRITICAL CARE OFFICE/OUTPATIENT [facility] 60-74 MINUTES Asia Jiménez, RESORT MANAGER.NEGOTIATIONS DIRECTOR [address] [place] [address] Referral ID Status Reason Start Date Expiration Date Visits Requested Visits Authorized [id number] Pending Review PCP Requested Referral 11/12/2021 11/12/2022 1 1 Specialty Diagnoses / Procedures Referred By Contmichelet t Referred To Contact CT IMAGING Diagnoses COVID-[address] CHEST WO IVCON DIAGNOSTIC COMPUTED TOMOGRAPHY THORAX W/O CNTRST Luna Swartz PA-C [address] [address] [address] Imaging Referral ID Status Reason Start Date Expiration Date Visits Requested Visits Authorized [id number] Pending Review Auto-Generat ed Referral 05/04/2022 02/20/2023 1 1 Specialty Diagnoses / Procedures Referred By Contac t Referred To Contact CT IMAGING Diagnoses Lung nodules Centrilobular emphysema (HCC) Former cigarette smoker Procedures CT CHEST WO IVCON DIAGNOSTIC COMPUTED TOMOGRAPHY THORAX W/O Magali Francis MD [address] [place] [address] Ct Imaging Referral ID Status Reason Start Date Expiration Date Visits Requested Visits Authorized [id number] Authorized Auto-Generat ed Referral 06/30/2023 1 1 Specialty Diagnoses / Procedures Referred By Contac t Referred To Contact Gynecology Diagnoses Screening for cervical cancer Procedures CONSULT TO GYNECOLOGY OFFICE/OUTPATIENT [facility] 60-74 MINUTES Julio Draper MD [address] [place] [address] Referral ID Status Reason Start Date Expiration Date Visits Requested Visits Authorized [id number] Pending Review PCP Requested Referral Auto-Generate d Referral 11/05/2022 11/05/2023 1 1 Specialty Diagnoses / Procedures Referred By Contac t Referred To Contact CT IMAGING Diagnoses Parapneumonic effusion Persistent pneumonia Procedures CT CHEST WO IVCON DIAGNOSTIC COMPUTED TOMOGRAPHY THORAX W/O Magali Francis MD [address] [place] [address] [place] [address] Referral ID Status Reason Start Date Expiration Date Visits Requested Visits Authorized [id number] Pending Review Auto-Generat ed Referral 10/24/2023 09/14/2024 1 1 Specialty Diagnoses / Procedures Referred By Contac t Referred To Contact Ent - Otolaryngology Diagnoses Impacted cerumen of both ears Procedures CONSULT TO ENT Julio Draper MD [address] [place] [address] Referral ID Status Reason Start Date Expiration Date Visits Requested Visits Authorized [id number] Ref Not Required PCP Requested Referral 08/25/2023 08/24/2024 1 1 Specialty Diagnoses / Procedures Referred By Contac t Referred To Contact Cardiology Diagnoses Paroxysmal atrial fibrillation (HCC) NSTEMI (non-ST elevated myocardial infarction) (HCC) Procedures CONSULT TO CARDIOLOGY Julio Draper MD [address] [place] [address] Referral ID Status Reason Start Date Expiration Date Visits Requested Visits Authorized [id number] Ref Not Required PCP Requested Referral 08/25/2023 08/24/2024 1 1 Specialty Diagnoses / Procedures Referred By Contac t Referred To Contact Nephrology Diagnoses ESRD (end stage renal disease) ([facility]) Procedures CONSULT TO NEPHROLOGY Julio Draper MD [address] [place] [address] Referral ID Status Reason Start Date Expiration Date Visits Requested Visits Authorized [id number] Ref Not Required PCP Requested Referral 08/25/2023 08/24/2024 1 1 Specialty Diagnoses / Procedures Referred By Contac t Referred To Contact CT IMAGING Diagnoses Lung nodules Procedures CT CHEST WO IVCON DIAGNOSTIC COMPUTED TOMOGRAPHY THORAX W/O CNTRST Luna Swartz PA-C [address] [place] [id number] Ct Imaging [id number] Referral ID Status Reason Start Date Expiration Date Visits Requested Visits Authorized [id number] Pending Review Auto-Generat ed Referral 05/10/2024 12/07/2024 1 1 Specialty Diagnoses / Procedures Referred By Contac t Referred To Contact CT IMAGING Diagnoses Ground glass opacity present on imaging of lung Procedures CT CHEST WO IVCON DIAGNOSTIC COMPUTED TOMOGRAPHY THORAX W/O CNTRST Magali Nieves MD [address] [place] [address] Ct Imaging [id number] Referral ID Status Reason Start Date Expiration Date Visits Requested Visits Authorized [id number] Authorized Auto-Generat ed Referral 11/05/2024 07/07/2025 1 [...] of outpatient treatment Lung nodules Parapneumonic effusion [id number] Acute exacerbation of chronic obstructive pulmonary disease [...] of outpatient treatment Lung nodules Parapneumonic effusion [id number] Acute exacerbation of chronic obstructive pulmonary disease (COPD) Chief Complaint ACUTE HYPOXIC RESPIR ATORY FAILURE DUE TO [facility] ACUTE HYPOXIC RESPIRATORY FAILURE DUE TO [facility] ACUTE HYPOXIC RESPIRATORY FAILURE DUE TO [facility] ACUTE HYPOXIC RESPIRATORY FAILURE DUE TO [facility] ACUTE HYPOXIC RESPIRATORY FAILURE DUE TO [facility] Atrial fibrillation ACUTE HYPOXIC RESPIRATORY FAILURE DUE TO [facility] ACUTE HYPOXIC RESPIRATORY FAILURE DUE TO [facility] ACUTE HYPOXIC RESPIRATORY FAILURE DUE TO [facility] ACUTE HYPOXIC RESPIRATORY FAILURE DUE TO [facility] ACUTE HYPOXIC RESPIRATORY FAILURE DUE TO [facility] ACUTE HYPOXIC RESPIRATORY FAILURE DUE TO [facility] ACUTE HYPOXIC RESPIRATORY FAILURE DUE TO [facility] ACUTE HYPOXIC RESPIRATORY FAILURE DUE TO [facility] ACUTE HYPOXIC RESPIRATORY FAILURE DUE TO [facility] ACUTE HYPOXIC RESPIRATORY FAILURE DUE TO [facility] ACUTE HYPOXIC RESPIRATORY FAILURE DUE TO [facility] AM EKG ACUTE HYPOXIC RESPIRATORY FAILURE DUE TO [facility] ACUTE HYPOXIC RESPIRATORY FAILURE DUE TO [facility] ACUTE HYPOXIC RESPIRATORY FAILURE DUE TO [facility] ACUTE HYPOXIC RESPIRATORY FAILURE DUE TO [facility] ACUTE HYPOXIC RESPIRATORY FAILURE DUE TO [facility] ACUTE HYPOXIC RESPIRATORY FAILURE DUE TO [facility] ACUTE HYPOXIC RESPIRATORY FAILURE DUE TO [facility] ACUTE HYPOXIC RESPIRATORY FAILURE DUE TO [facility] ACUTE HYPOXIC RESPIRATORY FAILURE DUE TO [facility] ACUTE HYPOXIC RESPIRATORY FAILURE DUE TO [facility] ACUTE HYPOXIC RESPIRATORY FAILURE DUE TO [facility] ACUTE HYPOXIC RESPIRATORY FAILURE DUE TO [facility] ACUTE HYPOXIC RESPIRATORY FAILURE DUE TO [facility] ACUTE GI BLEED Reason for Visit Acute exacerbation o f chronic obstructive pulmonary disease (COPD) [id number] Community acquired pneumonia of right lower lobe of lung Failure of outpatient treatment GI bleed Parapneumonic effusion Pleural effusion, right Anemia requiring transfusions Bleeding ulcer Syncope Chief Complaint ACUTE HYPOXIC RESPIR ATORY FAILURE DUE TO COMM[facility]ITY ACUTE HYPOXIC RESPIRATORY FAILURE DUE TO [facility] ACUTE HYPOXIC RESPIRATORY FAILURE DUE TO [facility] ACUTE HYPOXIC RESPIRATORY FAILURE DUE TO [facility] ACUTE HYPOXIC RESPIRATORY FAILURE DUE TO [facility] Atrial fibrillation ACUTE HYPOXIC RESPIRATORY FAILURE DUE TO [facility] ACUTE HYPOXIC RESPIRATORY FAILURE DUE TO [facility] ACUTE HYPOXIC RESPIRATORY FAILURE DUE TO [facility] ACUTE HYPOXIC RESPIRATORY FAILURE DUE TO [facility] ACUTE HYPOXIC RESPIRATORY FAILURE DUE TO [facility] ACUTE HYPOXIC RESPIRATORY FAILURE DUE TO [facility] ACUTE HYPOXIC RESPIRATORY FAILURE DUE TO [facility] ACUTE HYPOXIC RESPIRATORY FAILURE DUE TO [facility] ACUTE HYPOXIC RESPIRATORY FAILURE DUE TO [facility] ACUTE HYPOXIC RESPIRATORY FAILURE DUE TO [facility] ACUTE HYPOXIC RESPIRATORY FAILURE DUE TO [facility] AM EKG ACUTE HYPOXIC RESPIRATORY FAILURE DUE TO [facility] ACUTE HYPOXIC RESPIRATORY FAILURE DUE TO [facility] ACUTE HYPOXIC RESPIRATORY FAILURE DUE TO [facility] ACUTE HYPOXIC RESPIRATORY FAILURE DUE TO [facility] ACUTE HYPOXIC RESPIRATORY FAILURE DUE TO [facility] ACUTE HYPOXIC RESPIRATORY FAILURE DUE TO [facility] ACUTE HYPOXIC RESPIRATORY FAILURE DUE TO [facility] ACUTE HYPOXIC RESPIRATORY FAILURE DUE TO [facility] ACUTE HYPOXIC RESPIRATORY FAILURE DUE TO [facility] ACUTE HYPOXIC RESPIRATORY FAILURE DUE TO [facility] ACUTE HYPOXIC RESPIRATORY FAILURE DUE TO [facility] ACUTE HYPOXIC RESPIRATORY FAILURE DUE TO [facility] ACUTE HYPOXIC RESPIRATORY FAILURE DUE TO [facility] ACUTE HYPOXIC RESPIRATORY FAILURE DUE TO [facility] ACUTE GI BLEED ACUTE GI BLEED ACUTE GI BLEED ACUTE GI BLEED ACUTE GI BLEED ACUTE GI BLEED ACUTE GI BLEED Reason for Visit Acute exacerbation o f chronic obstructive pulmonary disease (COPD) [id number] Community acquired pneumonia of right lower lobe of lung Failure of outpatient treatment GI bleed Parapneumonic effusion Pleural effusion, right Anemia requiring transfusions Bleeding ulcer Syncope Chief Complaint ACUTE HYPOXIC RESPIR ATORY FAILURE DUE TO [facility] ACUTE HYPOXIC RESPIRATORY FAILURE DUE TO [facility] ACUTE HYPOXIC RESPIRATORY FAILURE DUE TO [facility] ACUTE HYPOXIC RESPIRATORY FAILURE DUE TO [facility] ACUTE HYPOXIC RESPIRATORY FAILURE DUE TO [facility] Atrial fibrillation ACUTE HYPOXIC RESPIRATORY FAILURE DUE TO [facility] ACUTE HYPOXIC RESPIRATORY FAILURE DUE TO [facility] ACUTE HYPOXIC RESPIRATORY FAILURE DUE TO [facility] ACUTE HYPOXIC RESPIRATORY FAILURE DUE TO [facility] ACUTE HYPOXIC RESPIRATORY FAILURE DUE TO [facility] ACUTE HYPOXIC RESPIRATORY FAILURE DUE TO [facility] ACUTE HYPOXIC RESPIRATORY FAILURE DUE TO [facility] ACUTE HYPOXIC RESPIRATORY FAILURE DUE TO [facility] ACUTE HYPOXIC RESPIRATORY FAILURE DUE TO [facility]ITY ACUTE HYPOXIC RESPIRATORY FAILURE DUE TO [facility] ACUTE HYPOXIC RESPIRATORY FAILURE DUE TO [facility] AM EKG ACUTE HYPOXIC RESPIRATORY FAILURE DUE TO [facility] ACUTE HYPOXIC RESPIRATORY FAILURE DUE TO [facility] ACUTE HYPOXIC RESPIRATORY FAILURE DUE TO [facility] ACUTE HYPOXIC RESPIRATORY FAILURE DUE TO [facility] ACUTE HYPOXIC RESPIRATORY FAILURE DUE TO [facility] ACUTE HYPOXIC RESPIRATORY FAILURE DUE TO [facility] ACUTE HYPOXIC RESPIRATORY FAILURE DUE TO COMMUNITY [...] GI BLEED abd pain Reason for Visit [id number] Acute exacerbation of chronic obstructive pulmonary disease (COPD) Community acquired pneumonia of right lower lobe of lung Failure of outpatient treatment GI bleed Parapneumonic effusion Pleural effusion, right Anemia requiring transfusions Bleeding ulcer Syncope Chief Complaint ACUTE HYPOXIC RESPIR ATORY FAILURE DUE TO COMMUNITY ACUTE HYPOXIC RESPIRATORY FAILURE DUE TO [facility] ACUTE HYPOXIC RESPIRATORY FAILURE DUE TO [facility] ACUTE HYPOXIC RESPIRATORY FAILURE DUE TO [facility] ACUTE HYPOXIC RESPIRATORY FAILURE DUE TO [facility] Atrial fibrillation ACUTE HYPOXIC RESPIRATORY FAILURE DUE TO [facility] ACUTE HYPOXIC RESPIRATORY FAILURE DUE TO [facility] ACUTE HYPOXIC RESPIRATORY FAILURE DUE TO [facility] ACUTE HYPOXIC RESPIRATORY FAILURE DUE TO [facility] ACUTE HYPOXIC RESPIRATORY FAILURE DUE TO [facility] ACUTE HYPOXIC RESPIRATORY FAILURE DUE TO [facility] ACUTE HYPOXIC RESPIRATORY FAILURE DUE TO [facility] ACUTE HYPOXIC RESPIRATORY FAILURE DUE TO [facility] ACUTE HYPOXIC RESPIRATORY FAILURE DUE TO [facility] ACUTE HYPOXIC RESPIRATORY FAILURE DUE TO [facility] ACUTE HYPOXIC RESPIRATORY FAILURE DUE TO [facility] AM EKG ACUTE HYPOXIC RESPIRATORY FAILURE DUE TO [facility] ACUTE HYPOXIC RESPIRATORY FAILURE DUE TO [facility] ACUTE HYPOXIC RESPIRATORY FAILURE DUE TO [facility] ACUTE HYPOXIC RESPIRATORY FAILURE DUE TO [facility] ACUTE HYPOXIC RESPIRATORY FAILURE DUE TO [facility] ACUTE HYPOXIC RESPIRATORY FAILURE DUE TO [facility] ACUTE HYPOXIC RESPIRATORY FAILURE DUE TO [facility] ACUTE HYPOXIC RESPIRATORY FAILURE DUE TO [facility] ACUTE HYPOXIC RESPIRATORY FAILURE DUE TO [facility] ACUTE HYPOXIC RESPIRATORY FAILURE DUE TO [facility] ACUTE HYPOXIC RESPIRATORY FAILURE DUE TO [facility] ACUTE HYPOXIC RESPIRATORY FAILURE DUE TO [facility] ACUTE HYPOXIC RESPIRATORY FAILURE DUE TO [facility] ACUTE HYPOXIC RESPIRATORY FAILURE DUE TO [facility] ACUTE GI BLEED ACUTE GI BLEED ACUTE GI BLEED ACUTE GI BLEED ACUTE GI BLEED ACUTE GI BLEED ACUTE GI BLEED ACUTE GI BLEED abd pain n/v EMPYEMA Reason for Visit [id number] Acute exacerbation of chronic obstructive pulmonary disease [...] ACUTE HYPOXIC RESPIR ATORY FAILURE DUE TO [facility] ACUTE HYPOXIC RESPIRATORY FAILURE DUE TO [facility] ACUTE HYPOXIC RESPIRATORY FAILURE DUE TO [facility] ACUTE HYPOXIC RESPIRATORY FAILURE DUE TO [facility] ACUTE HYPOXIC RESPIRATORY FAILURE DUE TO [facility] Atrial fibrillation ACUTE HYPOXIC RESPIRATORY FAILURE DUE TO [facility] ACUTE HYPOXIC RESPIRATORY FAILURE DUE TO [facility] ACUTE HYPOXIC RESPIRATORY FAILURE DUE TO [facility] ACUTE HYPOXIC RESPIRATORY FAILURE DUE TO [facility] ACUTE HYPOXIC RESPIRATORY FAILURE DUE TO [facility] ACUTE HYPOXIC RESPIRATORY FAILURE DUE TO [facility] ACUTE HYPOXIC RESPIRATORY FAILURE DUE TO [facility] ACUTE HYPOXIC RESPIRATORY FAILURE DUE TO [facility] ACUTE HYPOXIC RESPIRATORY FAILURE DUE TO [facility] ACUTE HYPOXIC RESPIRATORY FAILURE DUE TO [facility] ACUTE HYPOXIC RESPIRATORY FAILURE DUE TO [facility] AM EKG ACUTE HYPOXIC RESPIRATORY FAILURE DUE TO [facility] ACUTE HYPOXIC RESPIRATORY FAILURE DUE TO [facility] ACUTE HYPOXIC RESPIRATORY FAILURE DUE TO [facility] ACUTE HYPOXIC RESPIRATORY FAILURE DUE TO [facility] ACUTE HYPOXIC RESPIRATORY FAILURE DUE TO [facility] ACUTE HYPOXIC RESPIRATORY FAILURE DUE TO [facility] ACUTE HYPOXIC RESPIRATORY FAILURE DUE TO [facility] ACUTE HYPOXIC RESPIRATORY FAILURE DUE TO [facility] ACUTE HYPOXIC RESPIRATORY FAILURE DUE TO [facility] ACUTE HYPOXIC RESPIRATORY FAILURE DUE TO [facility] ACUTE HYPOXIC RESPIRATORY FAILURE DUE TO [facility] ACUTE HYPOXIC RESPIRATORY FAILURE DUE TO [facility] ACUTE HYPOXIC RESPIRATORY FAILURE DUE TO [facility] ACUTE HYPOXIC RESPIRATORY FAILURE DUE TO [facility] ACUTE GI BLEED ACUTE GI BLEED ACUTE GI BLEED ACUTE GI BLEED ACUTE GI BLEED ACUTE GI BLEED ACUTE GI BLEED ACUTE GI BLEED abd pain n/v EMPYEMA EMPYEMA EMPYEMA Reason for Visit [id number] Acute exacerbation of chronic obstructive pulmonary disease [...] ACUTE HYPOXIC RESPIR ATORY FAILURE DUE TO [facility] ACUTE HYPOXIC RESPIRATORY FAILURE DUE TO [facility] ACUTE HYPOXIC RESPIRATORY FAILURE DUE TO [facility] ACUTE HYPOXIC RESPIRATORY FAILURE DUE TO [facility] ACUTE HYPOXIC RESPIRATORY FAILURE DUE TO [facility] Atrial fibrillation ACUTE HYPOXIC RESPIRATORY FAILURE DUE TO [facility] ACUTE HYPOXIC RESPIRATORY FAILURE DUE TO [facility] ACUTE HYPOXIC RESPIRATORY FAILURE DUE TO [facility] ACUTE HYPOXIC RESPIRATORY FAILURE DUE TO [facility] ACUTE HYPOXIC RESPIRATORY FAILURE DUE TO [facility] ACUTE HYPOXIC RESPIRATORY FAILURE DUE TO [facility] ACUTE HYPOXIC RESPIRATORY FAILURE DUE TO [facility] ACUTE HYPOXIC RESPIRATORY FAILURE DUE TO [facility] ACUTE HYPOXIC RESPIRATORY FAILURE DUE TO [facility] ACUTE HYPOXIC RESPIRATORY FAILURE DUE TO [facility] ACUTE HYPOXIC RESPIRATORY FAILURE DUE TO [facility] AM EKG ACUTE HYPOXIC RESPIRATORY FAILURE DUE TO [facility] ACUTE HYPOXIC RESPIRATORY FAILURE DUE TO [facility] ACUTE HYPOXIC RESPIRATORY FAILURE DUE TO [facility] ACUTE HYPOXIC RESPIRATORY FAILURE DUE TO [facility] ACUTE HYPOXIC RESPIRATORY FAILURE DUE TO [facility] ACUTE HYPOXIC RESPIRATORY FAILURE DUE TO [facility] ACUTE HYPOXIC RESPIRATORY FAILURE DUE TO [facility] ACUTE HYPOXIC RESPIRATORY FAILURE DUE TO [facility] ACUTE HYPOXIC RESPIRATORY FAILURE DUE TO [facility] ACUTE HYPOXIC RESPIRATORY FAILURE DUE TO [facility] ACUTE HYPOXIC RESPIRATORY FAILURE DUE TO [facility] ACUTE HYPOXIC RESPIRATORY FAILURE DUE TO [facility] ACUTE HYPOXIC RESPIRATORY FAILURE DUE TO [facility] ACUTE HYPOXIC RESPIRATORY FAILURE DUE TO [facility] ACUTE GI BLEED ACUTE GI BLEED ACUTE GI BLEED ACUTE GI BLEED ACUTE GI BLEED ACUTE GI BLEED ACUTE GI BLEED ACUTE GI BLEED abd pain n/v EMPYEMA EMPYEMA EMPYEMA Atrial fibrillation RHYTHM CHANGE EMPYEMA 2 units PRBC's Reason for Visit [id number] Acute exacerbation of chronic obstructive pulmonary disease [...] COMMUNITY ACUTE HYPOXIC RESPIRATORY FAILURE DUE TO [facility] ACUTE HYPOXIC RESPIRATORY FAILURE DUE TO [facility] ACUTE HYPOXIC RESPIRATORY FAILURE DUE TO [facility] ACUTE HYPOXIC RESPIRATORY FAILURE DUE TO [facility] Atrial fibrillation ACUTE HYPOXIC RESPIRATORY FAILURE DUE TO [facility] ACUTE HYPOXIC RESPIRATORY FAILURE DUE TO [facility] ACUTE HYPOXIC RESPIRATORY FAILURE DUE TO [facility] ACUTE HYPOXIC RESPIRATORY FAILURE DUE TO [facility] ACUTE HYPOXIC RESPIRATORY FAILURE DUE TO [facility]ITY ACUTE HYPOXIC RESPIRATORY FAILURE DUE TO [facility] ACUTE HYPOXIC RESPIRATORY FAILURE DUE TO [facility] ACUTE HYPOXIC RESPIRATORY FAILURE DUE TO [facility] ACUTE HYPOXIC RESPIRATORY FAILURE DUE TO [facility] ACUTE HYPOXIC RESPIRATORY FAILURE DUE TO [facility] ACUTE HYPOXIC RESPIRATORY FAILURE DUE TO COMMUNITY AM EKG ACUTE HYPOXIC RESPIRATORY FAILURE DUE TO [facility] ACUTE HYPOXIC RESPIRATORY FAILURE DUE TO [facility] ACUTE HYPOXIC RESPIRATORY FAILURE DUE TO [facility]ITY ACUTE HYPOXIC RESPIRATORY FAILURE DUE TO [facility] ACUTE HYPOXIC RESPIRATORY FAILURE DUE TO [facility] ACUTE HYPOXIC RESPIRATORY FAILURE DUE TO [facility] ACUTE HYPOXIC RESPIRATORY FAILURE DUE TO [facility] ACUTE HYPOXIC RESPIRATORY FAILURE DUE TO [facility] ACUTE HYPOXIC RESPIRATORY FAILURE DUE TO [facility] ACUTE HYPOXIC RESPIRATORY FAILURE DUE TO [facility] ACUTE HYPOXIC RESPIRATORY FAILURE DUE TO [facility] ACUTE HYPOXIC RESPIRATORY FAILURE DUE TO [facility] ACUTE HYPOXIC RESPIRATORY FAILURE DUE TO COMMUNITY Reason for Visit Community acquired p neum[place] of right lower lobe of lung Failure of outpatient treatment GI bleed Lung nodules Parapneumonic effusion Pleural effusion, right [id number] Acute exacerbation of chronic obstructive pulmonary disease (COPD) Chief Complaint Admit Date 5 WK F/U PRE SURG May 24, 2024 1:27pm stage 3 left upper extremity Arterioveno us Fistula June 05, 2024 8:53am stage 3 left upper extremity Arterioveno us Fistula June 05, 2024 10:55am 2-3 WK POST TRANSPOSITION PROCEDURE [facility] 2023 2:19pm SOB July 03, 2024 11:42am [...] End stage renal disease on dialysis Febr [id number] 7:25am Pulmonary nodule August 06, 2024 7 [...] End stage renal disease on dialysis Febr [id number] 7:25am Pulmonary nodule August 06, 2024 7 :25am ESRD (end stage renal disease) on dialys is September 06, 2024 7:01am AVF (arteriovenous fistula) September 20, 2024 10:22am ESRD (end stage renal disease) on dialys is September 20, 2024 10:22am Chief Complaint Admit Date [id number] September 06, 2024 7:01 am [id number] [...] 2024 11:29a m Transient atrial fibrillation November 01, 2 025 11:29am End-stage renal disease (ESRD) November [...] 3:27pm End-stage renal disease (ESRD) January 3:27pm Chief Complaint Admit Date CHEST PAIN October 31, 2024 9:5 2am ACUTE, AFIB, SOB November 01, 2024 11:29a m PAROXYSMAL ATRIAL FIBRILLATION November 20, 2024 1:00pm PAROXYSMAL ATRIAL FIBRILLATION November 20, 2024 1:11pm POSSIBLE INTERVENTION January 03, 2025 9:2 9am POSSIBLE INTERVENTION January 03, 2025 11: 55am 2 M FU January 24, 2025 3:27 pm OTHER PAIN February 09, 2025 2:4 7pm Chief Complaint Admit Date POSSIBLE INTERVENTION January 03, 2025 9:2 9am POSSIBLE INTERVENTION January 03, 2025 11: 55am 2 M FU January 24, 2025 3:27 pm OTHER PAIN February 09, 2025 2:4 7pm chest pain April 13, 2025 9 :50pm general April 21, 2025 2 :35pm Reason for Visit Admit Date Dialysis AV fistula malfunction January 9:29am History of atrial fibrillation January 3:27pm Coronary artery disease January 24, 2025 3:27pm Essential hypertension January 24, 2025 3 :27pm Hyperlipidemia January 24, 2025 3:27 pm Transient atrial fibrillation January 24, 2025 3:27pm End-stage renal disease (ESRD) January 3:27pm Chief Complaint Admit Date 2 M FU January 24, 2025 3:27 pm OTHER PAIN February 09, 2025 2:4 7pm chest pain April 13, 2025 9 :50pm general April 21, 2025 2 :35pm Reason for Visit Admit Date History of atrial fibrillation January 3:27pm Coronary artery disease January 24, 2025 3:27pm Essential hypertension January 24, 2025 3 :27pm Hyperlipidemia January 24, 2025 3:27 pm Transient atrial fibrillation January 24, 2025 3:27pm End-stage renal disease (ESRD) January 3:27pm Additional Source Comments INFORMATION SOURCE (unrecogn ized section and content) DATE CREATED AUTHOR 10/14/2020 [facility] DATE CREATED AUTHOR AUTHOR'S ORGANIZ ATION 06/18/2023 [facility] ([place]) DATE CREATED AUTHOR AUTHOR'S ORGANIZ ATION 08/15/2023 [facility] DATE CREATED AUTHOR AUTHOR'S ORGANIZ ATION 09/06/2024 [facility] DATE CREATED AUTHOR AUTHOR'S ORGANIZ ATION 04/22/2025 [facility] DATE CREATED AUTHOR AUTHOR'S ORGANIZ ATION 05/06/[address] [facility] Source Comments (unrecognize d section and content) In the event this informatio n is protected by the Federal Confidentiality of Alcohol and Drug Abuse Patient Records regulations: The Federal rules restrict any use of the information to criminally investigate or prosecute any alcohol or drug abuse patient.[facility] the event this information is protected by the Federal Confidentiality of Alcohol and Drug Abuse Patient Records regulations: The Federal rules restrict any use of the information to criminally investigate or prosecute any alcohol or drug abuse patient.[facility] [facility]In the event this information is protected by the Federal Confidentiality of Alcohol and Drug Abuse Patient Records regulations: The Federal rules restrict any use of the information to criminally investigate or prosecute any alcohol or drug abuse patient.[facility] HospitalIn the event this information is protected by the Federal Confidentiality of Alcohol and Drug Abuse Patient Records regulations: The Federal rules restrict any use of the information to criminally investigate or prosecute any alcohol or drug abuse patient.[facility] HospitalIn the event this information is protected by the Federal Confidentiality of Alcohol and Drug Abuse Patient Records regulations: The Federal rules restrict any use of the information to criminally investigate or prosecute any alcohol or drug abuse patient.[facility] HospitalIn the event this information is protected by the Federal Confidentiality of Alcohol and Drug Abuse Patient Records regulations: The Federal rules restrict any use of the information to criminally investigate or prosecute any alcohol or drug abuse patient.[facility] HospitalIn the event this information is protected by the Federal Confidentiality of Alcohol and Drug Abuse Patient Records regulations: The Federal rules restrict any use of the information to criminally investigate or prosecute any alcohol or drug abuse patient.[facility] HospitalIn the event this information is protected by the Federal Confidentiality of Alcohol and Drug Abuse Patient Records regulations: The Federal rules restrict any use of the information to criminally investigate or prosecute any alcohol or drug abuse patient.[facility] HospitalIn the event this information is protected by the Federal Confidentiality of Alcohol and Drug Abuse Patient Records regulations: The Federal rules restrict any use of the information to criminally investigate or prosecute any alcohol or drug abuse patient.[facility] HospitalIn the event this information is protected by the Federal Confidentiality of Alcohol and Drug Abuse Patient Records regulations: The Federal rules restrict any use of the information to criminally investigate or prosecute any alcohol or drug abuse patient.[facility] HospitalIn the event this information is protected by the Federal Confidentiality of Alcohol and Drug Abuse Patient Records regulations: The Federal rules restrict any use of the information to criminally investigate or prosecute any alcohol or drug abuse patient.[facility] HospitalIn the event this information is protected by the Federal Confidentiality of Alcohol and Drug Abuse Patient Records regulations: The Federal rules restrict any use of the information to criminally investigate or prosecute any alcohol or drug abuse patient.[facility] HospitalIn the event this information is protected by the Federal Confidentiality of Alcohol and Drug Abuse Patient Records regulations: The Federal rules restrict any use of the information to criminally investigate or prosecute any alcohol or drug abuse patient.[facility] the event this information is protected by the Federal Confidentiality of Alcohol and Drug Abuse Patient Records regulations: The Federal rules restrict any use of the information to criminally investigate or prosecute any alcohol or drug abuse patient.[facility] HospitalIn the event this information is protected by the Federal Confidentiality of Alcohol and Drug Abuse Patient Records regulations: The Federal rules restrict any use of the information to criminally investigate or prosecute any alcohol or drug abuse patient.[facility] HospitalIn the event this information is protected by the Federal Confidentiality of Alcohol and Drug Abuse Patient Records regulations: The Federal rules restrict any use of the information to criminally investigate or prosecute any alcohol or drug abuse patient.[facility] HospitalIn the event this information is protected by the Federal Confidentiality of Alcohol and Drug Abuse Patient Records regulations: The Federal rules restrict any use of the information to criminally investigate or prosecute any alcohol or drug abuse patient.[facility] HospitalIn the event this information is protected by the Federal Confidentiality of Alcohol and Drug Abuse Patient Records regulations: The Federal rules restrict any use of the information to criminally investigate or prosecute any alcohol or drug abuse patient.[facility] HospitalIn the event this information is protected by the Federal Confidentiality of Alcohol and Drug Abuse Patient Records regulations: The Federal rules restrict any use of the information to criminally investigate or prosecute any alcohol or drug abuse patient.[facility] HospitalIn the event this information is protected by the Federal Confidentiality of Alcohol and Drug Abuse Patient Records regulations: The Federal rules restrict any use of the information to criminally investigate or prosecute any alcohol or drug abuse patient.[facility] HospitalIn the event this information is protected by the Federal Confidentiality of Alcohol and Drug Abuse Patient Records regulations: The Federal rules restrict any use of the information to criminally investigate or prosecute any alcohol or drug abuse patient.[facility] HospitalIn the event this information is protected by the Federal Confidentiality of Alcohol and Drug Abuse Patient Records regulations: The Federal rules restrict any use of the information to criminally investigate or prosecute any alcohol or drug abuse patient.[facility] HospitalIn the event this information is protected by the Federal Confidentiality of Alcohol and Drug Abuse Patient Records regulations: The Federal rules restrict any use of the information to criminally investigate or prosecute any alcohol or drug abuse patient.[facility] HospitalIn the event this information is protected by the Federal Confidentiality of Alcohol and Drug Abuse Patient Records regulations: The Federal rules restrict any use of the information to criminally investigate or prosecute any alcohol or drug abuse patient.[facility] HospitalIn the event this information is protected by the Federal Confidentiality of Alcohol and Drug Abuse Patient Records regulations: The Federal rules restrict any use of the information to criminally investigate or prosecute any alcohol or drug abuse patient.[facility] HospitalIn the event this information is protected by the Federal Confidentiality of Alcohol and Drug Abuse Patient Records regulations: The Federal rules restrict any use of the information to criminally investigate or prosecute any alcohol or drug abuse patient.[facility] HospitalIn the event this information is protected by the Federal Confidentiality of Alcohol and Drug Abuse Patient Records regulations: The Federal rules restrict any use of the information to criminally investigate or prosecute any alcohol or drug abuse patient.[facility] HospitalIn the event this information is protected by the Federal Confidentiality of Alcohol and Drug Abuse Patient Records regulations: The Federal rules restrict any use of the information to criminally investigate or prosecute any alcohol or drug abuse patient.[facility] HospitalIn the event this information is protected by the Federal Confidentiality of Alcohol and Drug Abuse Patient Records regulations: The Federal rules restrict any use of the information to criminally investigate or prosecute any alcohol or drug abuse patient.[facility] HospitalIn the event this information is protected by the Federal Confidentiality of Alcohol and Drug Abuse Patient Records regulations: The Federal rules restrict any use of the information to criminally investigate or prosecute any alcohol or drug abuse patient.[facility] HospitalIn the event this information is protected by the Federal Confidentiality of Alcohol and Drug Abuse Patient Records regulations: The Federal rules restrict any use of the information to criminally investigate or prosecute any alcohol or drug abuse patient.[facility] HospitalIn the event this information is protected by the Federal Confidentiality of Alcohol and Drug Abuse Patient Records regulations: The Federal rules restrict any use of the information to criminally investigate or prosecute any alcohol or drug abuse patient.[facility] HospitalIn the event this information is protected by the Federal Confidentiality of Alcohol and Drug Abuse Patient Records regulations: The Federal rules restrict any use of the information to criminally investigate or prosecute any alcohol or drug abuse patient.[facility] HospitalIn the event this information is protected by the Federal Confidentiality of Alcohol and Drug Abuse Patient Records regulations: The Federal rules restrict any use of the information to criminally investigate or prosecute any alcohol or drug abuse patient.[facility] HospitalIn the event this information is protected by the Federal Confidentiality of Alcohol and Drug Abuse Patient Records regulations: The Federal rules restrict any use of the information to criminally investigate or prosecute any alcohol or drug abuse patient.[facility] HospitalIn the event this information is protected by the Federal Confidentiality of Alcohol and Drug Abuse Patient Records regulations: The Federal rules restrict any use of the information to criminally investigate or prosecute any alcohol or drug abuse patient.[facility] HospitalIn the event this information is protected by the Federal Confidentiality of Alcohol and Drug Abuse Patient Records regulations: The Federal rules restrict any use of the information to criminally investigate or prosecute any alcohol or drug abuse patient.[facility] HospitalIn the event this information is protected by the Federal Confidentiality of Alcohol and Drug Abuse Patient Records regulations: The Federal rules restrict any use of the information to criminally investigate or prosecute any alcohol or drug abuse patient.[facility] HospitalIn the event this information is protected by the Federal Confidentiality of Alcohol and Drug Abuse Patient Records regulations: The Federal rules restrict any use of the information to criminally investigate or prosecute any alcohol or drug abuse patient.[facility] HospitalIn the event this information is protected by the Federal Confidentiality of Alcohol and Drug Abuse Patient Records regulations: The Federal rules restrict any use of the information to criminally investigate or prosecute any alcohol or drug abuse patient.[facility] HospitalIn the event this information is protected by the Federal Confidentiality of Alcohol and Drug Abuse Patient Records regulations: The Federal rules restrict any use of the information to criminally investigate or prosecute any alcohol or drug abuse patient.[facility] HospitalIn the event this information is protected by the Federal Confidentiality of Alcohol and Drug Abuse Patient Records regulations: The Federal rules restrict any use of the information to criminally investigate or prosecute any alcohol or drug abuse patient.[facility] HospitalIn the event this information is protected by the Federal Confidentiality of Alcohol and Drug Abuse Patient Records regulations: The Federal rules restrict any use of the information to criminally investigate or prosecute any alcohol or drug abuse patient.[facility] HospitalIn the event this information is protected by the Federal Confidentiality of Alcohol and Drug Abuse Patient Records regulations: The Federal rules restrict any use of the information to criminally investigate or prosecute any alcohol or drug abuse patient.[facility] HospitalIn the event this information is protected by the Federal Confidentiality of Alcohol and Drug Abuse Patient Records regulations: The Federal rules restrict any use of the information to criminally investigate or prosecute any alcohol or drug abuse patient.[facility] HospitalIn the event this information is protected by the Federal Confidentiality of Alcohol and Drug Abuse Patient Records regulations: The Federal rules restrict any use of the information to criminally investigate or prosecute any alcohol or drug abuse patient.[facility] HospitalIn the event this information is protected by the Federal Confidentiality of Alcohol and Drug Abuse Patient Records regulations: The Federal rules restrict any use of the information to criminally investigate or prosecute any alcohol or drug abuse patient.[facility] HospitalIn the event this information is protected by the Federal Confidentiality of Alcohol and Drug Abuse Patient Records regulations: The Federal rules restrict any use of the information to criminally investigate or prosecute any alcohol or drug abuse patient.[facility] HospitalIn the event this information is protected by the Federal Confidentiality of Alcohol and Drug Abuse Patient Records regulations: The Federal rules restrict any use of the information to criminally investigate or prosecute any alcohol or drug abuse patient.[facility] HospitalIn the event this information is protected by the Federal Confidentiality of Alcohol and Drug Abuse Patient Records regulations: The Federal rules restrict any use of the information to criminally investigate or prosecute any alcohol or drug abuse patient.[facility] HospitalIn the event this information is protected by the Federal Confidentiality of Alcohol and Drug Abuse Patient Records regulations: The Federal rules restrict any use of the information to criminally investigate or prosecute any alcohol or drug abuse patient.[facility] HospitalIn the event this information is protected by the Federal Confidentiality of Alcohol and Drug Abuse Patient Records regulations: The Federal rules restrict any use of the information to criminally investigate or prosecute any alcohol or drug abuse patient.[facility] HospitalIn the event this information is protected by the Federal Confidentiality of Alcohol and Drug Abuse Patient Records regulations: The Federal rules restrict any use of the information to criminally investigate or prosecute any alcohol or drug abuse patient.[facility] HospitalIn the event this information is protected by the Federal Confidentiality of Alcohol and Drug Abuse Patient Records regulations: The Federal rules restrict any use of the information to criminally investigate or prosecute any alcohol or drug abuse patient.[facility] HospitalIn the event this information is protected by the Federal Confidentiality of Alcohol and Drug Abuse Patient Records regulations: The Federal rules restrict any use of the information to criminally investigate or prosecute any alcohol or drug abuse patient.[facility] HospitalIn the event this information is protected by the Federal Confidentiality of Alcohol and Drug Abuse Patient Records regulations: The Federal rules restrict any use of the information to criminally investigate or prosecute any alcohol or drug abuse patient.[facility] HospitalIn the event this information is protected by the Federal Confidentiality of Alcohol and Drug Abuse Patient Records regulations: The Federal rules restrict any use of the information to criminally investigate or prosecute any alcohol or drug abuse patient.[facility] HospitalIn the event this information is protected by the Federal Confidentiality of Alcohol and Drug Abuse Patient Records regulations: The Federal rules restrict any use of the information to criminally investigate or prosecute any alcohol or drug abuse patient.[facility] HospitalIn the event this information is protected by the Federal Confidentiality of Alcohol and Drug Abuse Patient Records regulations: The Federal rules restrict any use of the information to criminally investigate or prosecute any alcohol or drug abuse patient.[facility] HospitalIn the event this information is protected by the Federal Confidentiality of Alcohol and Drug Abuse Patient Records regulations: The Federal rules restrict any use of the information to criminally investigate or prosecute any alcohol or drug abuse patient.[facility] HospitalIn the event this information is protected by the Federal Confidentiality of Alcohol and Drug Abuse Patient Records regulations: The Federal rules restrict any use of the information to criminally investigate or prosecute any alcohol or drug abuse patient.[facility] HospitalIn the event this information is protected by the Federal Confidentiality of Alcohol and Drug Abuse Patient Records regulations: The Federal rules restrict any use of the information to criminally investigate or prosecute any alcohol or drug abuse patient.[facility] HospitalIn the event this information is protected by the Federal Confidentiality of Alcohol and Drug Abuse Patient Records regulations: The Federal rules restrict any use of the information to criminally investigate or prosecute any alcohol or drug abuse patient.[facility]In the event this information is protected by the Federal Confidentiality of Alcohol and Drug Abuse Patient Records regulations: The Federal rules restrict any use of the information to criminally investigate or prosecute any alcohol or drug abuse patient.[facility] HospitalIn the event this information is protected by the Federal Confidentiality of Alcohol and Drug Abuse Patient Records regulations: The Federal rules restrict any use of the information to criminally investigate or prosecute any alcohol or drug abuse patient.[facility] HospitalIn the event this information is protected by the Federal Confidentiality of Alcohol and Drug Abuse Patient Records regulations: The Federal rules restrict any use of the information to criminally investigate or prosecute any alcohol or drug abuse patient.[facility] HospitalIn the event this information is protected by the Federal Confidentiality of Alcohol and Drug Abuse Patient Records regulations: The Federal rules restrict any use of the information to criminally investigate or prosecute any alcohol or drug abuse patient.[facility] HospitalIn the event this information is protected by the Federal Confidentiality of Alcohol and Drug Abuse Patient Records regulations: The Federal rules restrict any use of the information to criminally investigate or prosecute any alcohol or drug abuse patient.[facility] HospitalIn the event this information is protected by the Federal Confidentiality of Alcohol and Drug Abuse Patient Records regulations: The Federal rules restrict any use of the information to criminally investigate or prosecute any alcohol or drug abuse patient.[facility] HospitalIn the event this information is protected by the Federal Confidentiality of Alcohol and Drug Abuse Patient Records regulations: The Federal rules restrict any use of the information to criminally investigate or prosecute any alcohol or drug abuse patient.[facility] HospitalIn the event this information is protected by the Federal Confidentiality of Alcohol and Drug Abuse Patient Records regulations: The Federal rules restrict any use of the information to criminally investigate or prosecute any alcohol or drug abuse patient.[facility] HospitalIn the event this information is protected by the Federal Confidentiality of Alcohol and Drug Abuse Patient Records regulations: The Federal rules restrict any use of the information to criminally investigate or prosecute any alcohol or drug abuse patient.[facility] HospitalIn the event this information is protected by the Federal Confidentiality of Alcohol and Drug Abuse Patient Records regulations: The Federal rules restrict any use of the information to criminally investigate or prosecute any alcohol or drug abuse patient.[facility] HospitalIn the event this information is protected by the Federal Confidentiality of Alcohol and Drug Abuse Patient Records regulations: The Federal rules restrict any use of the information to criminally investigate or prosecute any alcohol or drug abuse patient.[facility] HospitalIn the event this information is protected by the Federal Confidentiality of Alcohol and Drug Abuse Patient Records regulations: The Federal rules restrict any use of the information to criminally investigate or prosecute any alcohol or drug abuse patient.[facility] HospitalIn the event this information is protected by the Federal Confidentiality of Alcohol and Drug Abuse Patient Records regulations: The Federal rules restrict any use of the information to criminally investigate or prosecute any alcohol or drug abuse patient.[facility] HospitalIn the event this information is protected by the Federal Confidentiality of Alcohol and Drug Abuse Patient Records regulations: The Federal rules restrict any use of the information to criminally investigate or prosecute any alcohol or drug abuse patient.[facility] HospitalIn the event this information is protected by the Federal Confidentiality of Alcohol and Drug Abuse Patient Records regulations: The Federal rules restrict any use of the information to criminally investigate or prosecute any alcohol or drug abuse patient.[facility] HospitalIn the event this information is protected by the Federal Confidentiality of Alcohol and Drug Abuse Patient Records regulations: The Federal rules restrict any use of the information to criminally investigate or prosecute any alcohol or drug abuse patient.[facility] HospitalIn the event this information is protected by the Federal Confidentiality of Alcohol and Drug Abuse Patient Records regulations: The Federal rules restrict any use of the information to criminally investigate or prosecute any alcohol or drug abuse patient.[facility] HospitalIn the event this information is protected by the Federal Confidentiality of Alcohol and Drug Abuse Patient Records regulations: The Federal rules restrict any use of the information to criminally investigate or prosecute any alcohol or drug abuse patient.[facility] HospitalIn the event this information is protected by the Federal Confidentiality of Alcohol and Drug Abuse Patient Records regulations: The Federal rules restrict any use of the information to criminally investigate or prosecute any alcohol or drug abuse patient.[facility] HospitalIn the event this information is protected by the Federal Confidentiality of Alcohol and Drug Abuse Patient Records regulations: The Federal rules restrict any use of the information to criminally investigate or prosecute any alcohol or drug abuse patient.[facility] HospitalIn the event this information is protected by the Federal Confidentiality of Alcohol and Drug Abuse Patient Records regulations: The Federal rules restrict any use of the information to criminally investigate or prosecute any alcohol or drug abuse patient.[facility] HospitalIn the event this information is protected by the Federal Confidentiality of Alcohol and Drug Abuse Patient Records regulations: The Federal rules restrict any use of the information to criminally investigate or prosecute any alcohol or drug abuse patient.[facility] HospitalIn the event this information is protected by the Federal Confidentiality of Alcohol and Drug Abuse Patient Records regulations: The Federal rules restrict any use of the information to criminally investigate or prosecute any alcohol or drug abuse patient.[facility] HospitalIn the event this information is protected by the Federal Confidentiality of Alcohol and Drug Abuse Patient Records regulations: The Federal rules restrict any use of the information to criminally investigate or prosecute any alcohol or drug abuse patient.[facility] HospitalIn the event this information is protected by the Federal Confidentiality of Alcohol and Drug Abuse Patient Records regulations: The Federal rules restrict any use of the information to criminally investigate or prosecute any alcohol or drug abuse patient.[facility] HospitalIn the event this information is protected by the Federal Confidentiality of Alcohol and Drug Abuse Patient Records regulations: The Federal rules restrict any use of the information to criminally investigate or prosecute any alcohol or drug abuse patient.[facility] HospitalIn the event this information is protected by the Federal Confidentiality of Alcohol and Drug Abuse Patient Records regulations: The Federal rules restrict any use of the information to criminally investigate or prosecute any alcohol or drug abuse patient.[facility] HospitalIn the event this information is protected by the Federal Confidentiality of Alcohol and Drug Abuse Patient Records regulations: The Federal rules restrict any use of the information to criminally investigate or prosecute any alcohol or drug abuse patient.[facility] HospitalIn the event this information is protected by the Federal Confidentiality of Alcohol and Drug Abuse Patient Records regulations: The Federal rules restrict any use of the information to criminally investigate or prosecute any alcohol or drug abuse patient.[facility] HospitalIn the event this information is protected by the Federal Confidentiality of Alcohol and Drug Abuse Patient Records regulations: The Federal rules restrict any use of the information to criminally investigate or prosecute any alcohol or drug abuse patient.[facility] HospitalIn the event this information is protected by the Federal Confidentiality of Alcohol and Drug Abuse Patient Records regulations: The Federal rules restrict any use of the information to criminally investigate or prosecute any alcohol or drug abuse patient.[facility] HospitalIn the event this information is protected by the Federal Confidentiality of Alcohol and Drug Abuse Patient Records regulations: The Federal rules restrict any use of the information to criminally investigate or prosecute any alcohol or drug abuse patient.[facility] HospitalIn the event this information is protected by the Federal Confidentiality of Alcohol and Drug Abuse Patient Records regulations: The Federal rules restrict any use of the information to criminally investigate or prosecute any alcohol or drug abuse patient.[facility] HospitalIn the event this information is protected by the Federal Confidentiality of Alcohol and Drug Abuse Patient Records regulations: The Federal rules restrict any use of the information to criminally investigate or prosecute any alcohol or drug abuse patient.[facility] HospitalIn the event this information is protected by the Federal Confidentiality of Alcohol and Drug Abuse Patient Records regulations: The Federal rules restrict any use of the information to criminally investigate or prosecute any alcohol or drug abuse patient.[facility] HospitalIn the event this information is protected by the Federal Confidentiality of Alcohol and Drug Abuse Patient Records regulations: The Federal rules restrict any use of the information to criminally investigate or prosecute any alcohol or drug abuse patient.[facility] HospitalIn the event this information is protected by the Federal Confidentiality of Alcohol and Drug Abuse Patient Records regulations: The Federal rules restrict any use of the information to criminally investigate or prosecute any alcohol or drug abuse patient.[facility] HospitalIn the event this information is protected by the Federal Confidentiality of Alcohol and Drug Abuse Patient Records regulations: The Federal rules restrict any use of the information to criminally investigate or prosecute any alcohol or drug abuse patient.[facility] HospitalIn the event this information is protected by the Federal Confidentiality of Alcohol and Drug Abuse Patient Records regulations: The Federal rules restrict any use of the information to criminally investigate or prosecute any alcohol or drug abuse patient.[facility] HospitalIn the event this information is protected by the Federal Confidentiality of Alcohol and Drug Abuse Patient Records regulations: The Federal rules restrict any use of the information to criminally investigate or prosecute any alcohol or drug abuse patient.[facility] HospitalIn the event this information is protected by the Federal Confidentiality of Alcohol and Drug Abuse Patient Records regulations: The Federal rules restrict any use of the information to criminally investigate or prosecute any alcohol or drug abuse patient.[facility] HospitalIn the event this information is protected by the Federal Confidentiality of Alcohol and Drug Abuse Patient Records regulations: The Federal rules restrict any use of the information to criminally investigate or prosecute any alcohol or drug abuse patient.[facility] HospitalIn the event this information is protected by the Federal Confidentiality of Alcohol and Drug Abuse Patient Records regulations: The Federal rules restrict any use of the information to criminally investigate or prosecute any alcohol or drug abuse patient.[facility] HospitalIn the event this information is protected by the Federal Confidentiality of Alcohol and Drug Abuse Patient Records regulations: The Federal rules restrict any use of the information to criminally investigate or prosecute any alcohol or drug abuse patient.[facility] HospitalIn the event this information is protected by the Federal Confidentiality of Alcohol and Drug Abuse Patient Records regulations: The Federal rules restrict any use of the information to criminally investigate or prosecute any alcohol or drug abuse patient.[facility] HospitalIn the event this information is protected by the Federal Confidentiality of Alcohol and Drug Abuse Patient Records regulations: The Federal rules restrict any use of the information to criminally investigate or prosecute any alcohol or drug abuse patient.[facility] HospitalIn the event this information is protected by the Federal Confidentiality of Alcohol and Drug Abuse Patient Records regulations: The Federal rules restrict any use of the information to criminally investigate or prosecute any alcohol or drug abuse patient.[facility] HospitalIn the event this information is protected by the Federal Confidentiality of Alcohol and Drug Abuse Patient Records regulations: The Federal rules restrict any use of the information to criminally investigate or prosecute any alcohol or drug abuse patient.[facility] HospitalIn the event this information is protected by the Federal Confidentiality of Alcohol and Drug Abuse Patient Records regulations: The Federal rules restrict any use of the information to criminally investigate or prosecute any alcohol or drug abuse patient.[facility] HospitalIn the event this information is protected by the Federal Confidentiality of Alcohol and Drug Abuse Patient Records regulations: The Federal rules restrict any use of the information to criminally investigate or prosecute any alcohol or drug abuse patient.[facility]In the event this information is protected by the Federal Confidentiality of Alcohol and Drug Abuse Patient Records regulations: The Federal rules restrict any use of the information to criminally investigate or prosecute any alcohol or drug abuse patient.[facility] HospitalIn the event this information is protected by the Federal Confidentiality of Alcohol and Drug Abuse Patient Records regulations: The Federal rules restrict any use of the information to criminally investigate or prosecute any alcohol or drug abuse patient.[facility] HospitalIn the event this information is protected by the Federal Confidentiality of Alcohol and Drug Abuse Patient Records regulations: The Federal rules restrict any use of the information to criminally investigate or prosecute any alcohol or drug abuse patient.[facility] HospitalIn the event this information is protected by the Federal Confidentiality of Alcohol and Drug Abuse Patient Records regulations: The Federal rules restrict any use of the information to criminally investigate or prosecute any alcohol or drug abuse patient.[facility] HospitalIn the event this information is protected by the Federal Confidentiality of Alcohol and Drug Abuse Patient Records regulations: The Federal rules restrict any use of the information to criminally investigate or prosecute any alcohol or drug abuse patient.[facility] HospitalIn the event this information is protected by the Federal Confidentiality of Alcohol and Drug Abuse Patient Records regulations: The Federal rules restrict any use of the information to criminally investigate or prosecute any alcohol or drug abuse patient.[facility] HospitalIn the event this information is protected by the Federal Confidentiality of Alcohol and Drug Abuse Patient Records regulations: The Federal rules restrict any use of the information to criminally investigate or prosecute any alcohol or drug abuse patient.[facility] HospitalIn the event this information is protected by the Federal Confidentiality of Alcohol and Drug Abuse Patient Records regulations: The Federal rules restrict any use of the information to criminally investigate or prosecute any alcohol or drug abuse patient.[facility] HospitalIn the event this information is protected by the Federal Confidentiality of Alcohol and Drug Abuse Patient Records regulations: The Federal rules restrict any use of the information to criminally investigate or prosecute any alcohol or drug abuse patient.[facility] HospitalIn the event this information is protected by the Federal Confidentiality of Alcohol and Drug Abuse Patient Records regulations: The Federal rules restrict any use of the information to criminally investigate or prosecute any alcohol or drug abuse patient.[facility] HospitalIn the event this information is protected by the Federal Confidentiality of Alcohol and Drug Abuse Patient Records regulations: The Federal rules restrict any use of the information to criminally investigate or prosecute any alcohol or drug abuse patient.[facility] HospitalIn the event this information is protected by the Federal Confidentiality of Alcohol and Drug Abuse Patient Records regulations: The Federal rules restrict any use of the information to criminally investigate or prosecute any alcohol or drug abuse patient.[facility] HospitalIn the event this information is protected by the Federal Confidentiality of Alcohol and Drug Abuse Patient Records regulations: The Federal rules restrict any use of the information to criminally investigate or prosecute any alcohol or drug abuse patient.[facility] HospitalIn the event this information is protected by the Federal Confidentiality of Alcohol and Drug Abuse Patient Records regulations: The Federal rules restrict any use of the information to criminally investigate or prosecute any alcohol or drug abuse patient.[facility] HospitalIn the event this information is protected by the Federal Confidentiality of Alcohol and Drug Abuse Patient Records regulations: The Federal rules restrict any use of the information to criminally investigate or prosecute any alcohol or drug abuse patient.[facility] HospitalIn the event this information is protected by the Federal Confidentiality of Alcohol and Drug Abuse Patient Records regulations: The Federal rules restrict any use of the information to criminally investigate or prosecute any alcohol or drug abuse patient.[facility] HospitalIn the event this information is protected by the Federal Confidentiality of Alcohol and Drug Abuse Patient Records regulations: The Federal rules restrict any use of the information to criminally investigate or prosecute any alcohol or drug abuse patient.[facility] Reason for Visit (unrecogniz ed section and content) Reason Comments Ear Problem ears feel clogged an d dizziness x 1 week Reason Comments Cough vomiting, SOB x this AM Reason Comments Dizziness Back Pain L left side back x 2 days Reason Comments Patient Update Reason Comments Spirometry Specialty Diagnoses / Procedures Referred By Contac t Referred To Contact [facility] Diagnoses COVID-19 Stage 3 severe COPD by GOLD classification (HCC) Procedures OXIMETRY WITH AMBULATION NONINVASIVE EAR/PULSE OXIMETRY MULTIPLE DETER Luna Swartz PA-C [address] [address] [facility] [place] [address] [place] [address] Referral ID Status Reason Start Date Expiration Date V isits Requested Visits Authorized [id number] Closed Financial Clearance Not Required 01/21/2022 07/03/2022 1 1 Reason Comments Established Patient COPD Reason Comments Orders Reason Comments 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 Date 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 F/U 6 months Immunizations 05/03/2022 Flu vaccination Specialty Diagnoses / Procedures Referred By Contac t Referred To Contact Internal Medicine / INTERNAL MEDICINE Diagnoses 6 month follow up Procedures 4C EST Julio Draper MD [address] [place] [address] Julio Draper MD [address] [place] [address] Referral ID Status Reason Start Date Expiration Date Visits Re quested Visits Authorized [id number] Closed 05/03/2022 07/03/2022 1 1 Reason Onset [...] W/O CNTRST Luna Swartz PA-C [address] [place] [address] Ct [id number] Referral ID Status Reason Start Date Expiration Date V isits Requested Visits Authorized [id number] Closed Auto-Generate d Referral 05/25/2022 07/03/2022 [address] Specialty Diagnoses / Procedures Referred By Contac t Referred To Contact CT IMAGING Diagnoses Lung nodules Centrilobular emphysema (HCC) Former cigarette smoker Procedures CT CHEST WO IVCON DIAGNOSTIC COMPUTED TOMOGRAPHY THORAX W/O CNTMagali Amaral MD [address] [place] [address] [place] [address] Referral ID Status Reason Start Date Expiration Date V isits Requested Visits Authorized [id number] Closed Auto-Generate d Referral 05/31/2023 06/30/2023 [address] scan results/ Darlene n Reason Comments [facility] agree to follow Reason Comments Long-Term Plan of Care Reason Comments Appointment Hospital f/u appt/ Reason Comments Appointment Reason Comments Forms Reason Comments Orders Patient Update Reason Comments Home Health update Reason Comments physical therapy plan of care Reason Comments Patient Update [facility] HH update / verbal order request Reason Comments [...] Cough Specialty Diagnoses / Procedures Referred By Contac t Referred To Contact CT IMAGING Diagnoses Lung nodules Procedures CT CHEST WO IVCON DIAGNOSTIC COMPUTED TOMOGRAPHY THORAX W/O CNTRST Magali Nieves MD [address] [place] [address] [place] [address] Referral ID Status Reason Start Date Expiration Date V isits Requested Visits Authorized [id number] Closed Auto-Generate d Referral 10/24/2023 07/03/2024 1 1 Reason Comments Established Patient Reason Comments Yearly Exam Reason Onset Date Comments Refill Request 12/16/2023 Reason Comments Release Point form Reason Comments Rectal Bleeding Reason Comments Medication Problem Reason Comments disability forms from [employer] Specialty Diagnoses / Procedures Referred By Contac t Referred To Contact Radiology / [facility] Diagnoses Dx: Multiple duodenal ulcers [K26.9]; Parapneumonic effusion [J18.9, J91.8 Procedures XR CHEST Julio Draper MD [address] [place] [address] [facility] [address] [place] [address] Referral ID Status Reason Start Date Expiration Date Visits Re quested Visits Authorized [id number] Closed 06/30/2023 07/03/2023 1 1 Reason Onset Date Comments Refill Request 03/17/2024 Specialty Diagnoses / Procedures Referred By Contac t Referred To Contact Radiology / [facility] Diagnoses Wellness examination ML Procedures RADIOLOGIC EXAM CHEST 2 VIEWS XR CHEST Magali Nieves MD [address] [place] [address] [facility] [address] [place] [address] Referral ID Status Reason Start Date Expiration Date Visits Re quested Visits Authorized [id number] Closed 01/07/2023 04/07/2023 1 1 Specialty Diagnoses / Procedures Referred By Contac t Referred To Contact Radiology / [facility] Diagnoses COPD with exacerbation (HCC) 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 Procedures XR CHEST Jessie Hurley, RESORT MANAGER.HEAD SAWYER [address] [place] [address] [facility] [address] [place] [address] Referral ID Status Reason Start Date Expiration Date Visits Re quested Visits Authorized [id number] Closed 11/11/2022 07/03/2023 1 1 Specialty Diagnoses / Procedures Referred By Contac t Referred To Contact Radiology / [facility] Diagnoses xr chest rm 1 Procedures XR CHEST Rachel Mayo, RESORT MANAGER.HEAD SAWYER [address] [place] [address] [facility] [address] [place] [address] Referral ID Status Reason Start Date Expiration Date Visits Re quested Visits Authorized [id number] Closed 11/02/2021 11/02/2021 1 1 Reason Comments ER F/U Reason Comments Patient Update Breathing Problem Reason Comments concern with crackling lungs/SOB Specialty Diagnoses / Procedures Referred By Contac t Referred To Contact CT IMAGING Diagnoses Lung nodules Procedures CT CHEST WO IVCON DIAGNOSTIC COMPUTED TOMOGRAPHY THORAX W/O Luna Cantrell, PAJunC [address] [place] [address] [place] [address] Referral ID Status Reason Start Date Expiration Date V isits Requested Visits Authorized [id number] Closed Auto-Generate d Referral 05/10/2024 12/07/2024 1 1 Reason Comments Recheck 6 months Reason Comments Established Patient COPD Specialty Diagnoses / Procedures [facility] Diagnoses Chronic obstructive pulmonary disease, unspecified (HCC) Procedures OXYGEN CONCENTRATOR PORTABLE OXYGEN CONCENTRATOR Magali Nieves MD [address] [place] [address] Magali Nieves MD [address] [facility] [address] Referral ID Status Reason Start Date Expiration Date Visits Re quested Visits Authorized [id number] Closed 05/11/2023 05/11/2024 1 1 Reason Onset Date Comments Refill Request 06/15/2024 Reason Comments Breathing Problem Reason Comments Home Health Orders Reason Comments Home Care Management Nursing plan of car e Reason Comments Hospital F/U Reason Comments [facility], nursing plan of care Reason Comments Transition [...] 11/01/2024 Specialty Diagnoses / Procedures [facility] To [facility] Diagnoses Ground glass opacity present on imaging of lung Procedures CT CHEST WO IVCON DIAGNOSTIC COMPUTED TOMOGRAPHY THORAX W/O CNTRST Magali Nieves MD [address] [place] [address] Phone: tel: fax: [place] [address] Referral ID Status Reason Start Date Expiration Date V isits Requested Visits Authorized [id number] Closed Auto-Generate d Referral 11/05/2024 07/07/2025 1 1 Reason Comments F/U 6 months Reason Comments Established Patient 6 month follow up [place] Reason Comments Results Reason Comments Patient Question O2 monitor results Reason Comments ER F/U FLANK/RIGHT SHOULDER PAIN Reason Comments Welcome to Medicare Reason Onset Date Comments Refill Request 03/12/2025 Care Teams (unrecognized sec tion and content) Grain Elevator Superintendent Relationship Specialty Start Date End Date Julio Draper MD [address] [facility] [place] [address] PCP - General Internal Medicine 07/15/15 Grain Elevator Superintendent Relationship Specialty Start Date End Date Julio Draper MD [address] [facility] [place] [address] PCP - General Internal Medicine 07/15/15 Grain Elevator Superintendent Relationship Specialty Start Date End Date Julio Draper MD [address] [facility] [place] [address] PCP - General Internal Medicine 07/15/15 Grain Elevator Superintendent Relationship Specialty Start Date End Date Julio Draper MD [address] [facility] [place] [address] PCP - General Internal Medicine 07/15/15 Grain Elevator Superintendent Relationship Specialty Start Date End Date Julio Draper MD [address] [facility] [place] [address] PCP - General Internal Medicine 07/15/15 Grain Elevator Superintendent Relationship Specialty Start Date End Date Julio Draper MD [address] [facility] [place] [address] PCP - General Internal Medicine 07/15/15 Grain Elevator Superintendent Relationship Specialty Start Date End Date Julio Draper MD [address] [facility] [place] [address] PCP - General Internal Medicine 07/15/15 Grain Elevator Superintendent Relationship Specialty Start Date End Date Julio Draper MD [address] [facility] [place] [address] PCP - General Internal Medicine 07/15/15 Grain Elevator Superintendent Relationship Specialty Start Date End Date Julio Draper MD [address] [facility] [place] [address] PCP - General Internal Medicine 07/15/15 Grain Elevator Superintendent Relationship Specialty Start Date End Date Julio Draper MD [address] [facility] [place] [address] PCP - General Internal Medicine 07/15/15 Grain Elevator Superintendent Relationship Specialty Start Date End Date Julio Draper MD [address] [facility] [place] [address] PCP - General Internal Medicine 07/15/15 Grain Elevator Superintendent Relationship Specialty Start Date End Date Julio Draper MD [address] [facility] [place] [address] PCP - General Internal Medicine 07/15/15 Grain Elevator Superintendent Relationship Specialty Start Date End Date Julio Draper MD [address] [facility] [place] [address] PCP - General Internal Medicine 07/15/15 Grain Elevator Superintendent Relationship Specialty Start Date End Date Julio Draper MD [address] [facility] [place] [address] PCP - General Internal Medicine 07/15/15 Grain Elevator Superintendent Relationship Specialty Start Date End Date Julio Draper MD [address] [facility] [place] [address] PCP - General Internal Medicine 07/15/15 Grain Elevator Superintendent Relationship Specialty Start Date End Date Julio Draper MD [address] [facility] [place] [address] PCP - General Internal Medicine 07/15/15 Grain Elevator Superintendent Relationship Specialty Start Date End Date Julio Draper MD [address] [facility] [place] [address] PCP - General Internal Medicine 07/15/15 Team Status: Active Member Role Status Dates Dr. Julio Draper MD Family Provider Active Dr. Julio Draper MD Primary Care Provider Active Team Status: Inactive Member Role Status Dates Dr. Julio Draper MD Primary Care Provider Active Dr. Jaime Perdomo DO Emergency Provider Active Grain Elevator Superintendent Relationship Specialty Start Date End Date Julio Draper MD [address] [place] [address] PCP - General Internal Medicine 07/15/15 Team [...] Dr. Yemi Celaya MD Other Provider Active Grain Elevator Superintendent Relationship Specialty Start Date End Date Julio Draper MD [address] [place] [address] PCP - General Internal Medicine 07/15/15 Grain Elevator Superintendent Relationship Specialty Start Date End Date Julio Draper MD [address] [place] [address] PCP - General Internal Medicine 07/15/15 Grain Elevator Superintendent Relationship Specialty Start Date End Date Julio Draper MD [address] [facility] [place] [address] PCP - General Internal Medicine 07/15/15 Grain Elevator Superintendent Relationship Specialty Start Date End Date Julio Draper MD [address] [facility] [place] [address] PCP - General Internal Medicine 07/15/15 Grain Elevator Superintendent Relationship Specialty Start Date End Date Julio Draper MD [address] [facility] [place] [address] PCP - General Internal Medicine 07/15/15 Grain Elevator Superintendent Relationship Specialty Start Date End Date Julio Draper MD [address] [facility] [place] [address] PCP - General Internal Medicine 07/15/15 Grain Elevator Superintendent Relationship Specialty Start Date End Date Julio Draper MD [address] [facility] [place] [address] PCP - General Internal Medicine 07/15/15 Team Status: Active Member Role Status Dates Dr. Julio Draper MD Primary Care Provider Active Dr. Hoang Foster DO Emergency Provider Active Team Status: Active Member Role Status Dates Dr. Julio Draper MD Primary Care Provider Active Dr. Mikael Swartz MD Emergency Provider Active Dr. Gabby Sutherland MD Admit Provider, Attending Prov ider Active Dr. Kapil Doyle MD Other Provider Active Dr. Adrian Nieves DO Other Provider Active Dr. Pao Weeks MD Other Provider Active Dr. Ford Graff MD Other Provider Active Sheridan Jovel CIRCUIT BOARD REPAIR TECHNICIAN, CIRCUIT BOARD REPAIR TECHNICIAN-C Other Provider Active Team Status: Active Member Role Status Dates Dr. Julio Draper MD Primary Care Provider Active Dr. Mikael Swartz MD Emergency Provider Active Dr. Gabby Sutherland MD Admit Provider, Other Provider Active Dr. Kapil Doyle MD Other Provider Active Dr. Adrian Nieves , DO Attending Provider, Other Provide r Active Dr. Pao Weeks MD Other Provider Active Dr. Ford Graff MD Other Provider Active Sheridan Jovel CIRCUIT BOARD REPAIR TECHNICIAN, CIRCUIT BOARD REPAIR TECHNICIAN-C Other Provider Active Team Status: Active Member [...] Graff MD Other Provider Active Sheridan Jovel CIRCUIT BOARD REPAIR TECHNICIAN, CIRCUIT BOARD REPAIR TECHNICIAN-C Other Provider Active Team Status: Active Member [...] Graff MD Other Provider Active Sheridan Jovel CIRCUIT BOARD REPAIR TECHNICIAN, CIRCUIT BOARD REPAIR TECHNICIAN-C Other Provider Active Team Status: Active Member [...] Graff MD Other Provider Active Sheridan Jovel CIRCUIT BOARD REPAIR TECHNICIAN, CIRCUIT BOARD REPAIR TECHNICIAN-C Other Provider Active Dr. Td Pillai , [...] Graff MD Other Provider Active Sheridan Jovel CIRCUIT BOARD REPAIR TECHNICIAN, CIRCUIT BOARD REPAIR TECHNICIAN-C Other Provider Active Dr. Td Pillai , DO Attending Provider, Other Pro vider Active Team [...] Graff MD Other Provider Active Sheridan Jovel CIRCUIT BOARD REPAIR TECHNICIAN, CIRCUIT BOARD REPAIR TECHNICIAN-C Other Provider Active Dr. Td Pillai , DO Other Provider Active Dr. Ramon Antunez , DO Attending Provider Active Team Status: Active Member Role Status Dates Dr. Julio Draper MD Primary Care Provider Active Dr. Ramon Antunez , DO Attending Provider Active Team Status: Active Member Role Status Dates Dr. Juloi Draper MD Primary Care Provider Active Dr. Mikael Swartz MD Emergency Provider Active Dr. Gabby Sutherland MD Admit Provider, Other Provider Active Dr. Kapil Doyle MD Attending Provider, Other Provid er Active Dr. Adrian Nieves , DO Other Provider Active Dr. Pao Weeks MD Other Provider Active Dr. Ford Graff MD Other Provider Active Sheridan Jovel CIRCUIT BOARD REPAIR TECHNICIAN, CIRCUIT BOARD REPAIR TECHNICIAN-C Other Provider Active Dr. Td Pillai , [...] Graff MD Other Provider Active Sheridan Jovel CIRCUIT BOARD REPAIR TECHNICIAN, CIRCUIT BOARD REPAIR TECHNICIAN-C Other Provider Active Dr. Robel Funk , Referring Provider Active Team Status: Active [...] A ctive Dr. Td Pillai , DO Attending Provider, Other Pro vider Active Team Status: Active Member Role Status Dates Dr. Julio Draper MD Primary Care Provider Active Guido Oliveira MD Emergency Provider Active Dr. Edis Mayo MD Admit Provider, Other Provider A ctive Dr. Yemi Celaya MD Attending Provider, Other Provi dwight Active Dr. Td Pillai , DO Other Provider Active Team Status: Inactive Member [...] Graff MD Other Provider Active Sheridan Jovel CIRCUIT BOARD REPAIR TECHNICIAN, CIRCUIT BOARD REPAIR TECHNICIAN-C Other Provider Active Dr. Robel Funk , DO Referring Provider Active Team Status: Active Member Role Status Dates Dr. Julio Draper MD Primary Care Provider Active Dr. Mikael Sawrtz MD Emergency Provider Active Dr. Gabby Sutherland MD Admit Provider, Other Provider Active Dr. Kapil Doyle MD Other Provider Active Dr. Adrian Nieves , Other Provider Active Dr. Pao Weeks MD Attending Provider, Other Provi dwight Active Dr. Ford Graff MD Other Provider Active Sheridan Jovel CIRCUIT BOARD REPAIR TECHNICIAN, CIRCUIT BOARD REPAIR TECHNICIAN-C Other Provider Active Dr. Td Pillai , [...] Graff MD Other Provider Active Sheridan Jovel CIRCUIT BOARD REPAIR TECHNICIAN, CIRCUIT BOARD REPAIR TECHNICIAN-C Other Provider Active Dr. Td Pillai , [...] Graff MD Other Provider Active Sheridan Jovel CIRCUIT BOARD REPAIR TECHNICIAN, CIRCUIT BOARD REPAIR TECHNICIAN-C Other Provider Active Dr. Td Pillai , [...] Graff MD Other Provider Active Sheridan Jovel CIRCUIT BOARD REPAIR TECHNICIAN, CIRCUIT BOARD REPAIR TECHNICIAN-C Other Provider Active Dr. Edis Mayo MD [...] Graff MD Other Provider Active Sheridan Jovel CIRCUIT BOARD REPAIR TECHNICIAN, CIRCUIT BOARD REPAIR TECHNICIAN-C Other Provider Active Dr. Edis Mayo MD [...] Graff MD Other Provider Active Sheridan Jovel CIRCUIT BOARD REPAIR TECHNICIAN, CIRCUIT BOARD REPAIR TECHNICIAN-C Other Provider Active Dr. Edis Mayo MD Attending Provider Active Grain Elevator Superintendent Relationship Specialty Start Date End Date Julio Draper MD [address] [place] [address] PCP - General Internal Medicine 07/15/15 Grain Elevator Superintendent Relationship Specialty Start Date End Date Julio Draper MD [address] [place], [place] [address] PCP - General Internal Medicine 07/15/15 Grain Elevator Superintendent Relationship Specialty Start Date End Date Julio Draper MD [address] [place], [place] 160511 PCP - General Internal Medicine 07/15/15 Grain Elevator Superintendent Relationship Specialty Start Date End Date Julio Draper MD [address] [facility] [place] [address] PCP - General Internal Medicine 07/15/15 Grain Elevator Superintendent Relationship Specialty Start Date End Date Julio Draper MD [address] [facility] [place] [address] PCP - General Internal Medicine 07/15/15 Grain Elevator Superintendent Relationship Specialty Start Date End Date Julio Draper MD [address] [facility] [place] [address] PCP - General Internal Medicine 07/15/15 Grain Elevator Superintendent Relationship Specialty Start Date End Date Julio Draper MD [address] [facility] [place] [address] PCP - General Internal Medicine 07/15/15 Grain Elevator Superintendent Relationship Specialty Start Date End Date Julio Draper MD [address] [facility] [place] [address] PCP - General Internal Medicine 07/15/15 Grain Elevator Superintendent Relationship Specialty Start Date End Date Julio Draper MD [address] [facility] [place] [address] PCP - General Internal Medicine 07/15/15 Grain Elevator Superintendent Relationship Specialty Start Date End Date Julio Draper MD [address] [facility] [place] [address] PCP - General Internal Medicine 07/15/15 Grain Elevator Superintendent Relationship Specialty Start Date End Date Julio Draper MD [address] [place] [address] PCP - General Internal Medicine 07/15/15 Team Status: Active Member Role Status Dates Dr. Julio Draper MD Primary Care Provider Active Dr. Ramon Antunez , Attending Provider Active Dr. Edis Mayo MD Referring Provider Active Team Status: Active Member Role Status Dates Dr. Julio Draper MD Primary Care Provider Active Guido Oliveira MD Emergency Provider Active Dr. Edis Mayo MD Admit Provider, Re ferring Provider, Other Provider Active Dr. Td Pillai , DO Other Provider Active Dr. Ramon Antunez , DO Attending Provider Active Team Status: Active Member Role Status Dates Dr. Julio Draper MD Primary Care Provider Active Guiod Oliveira MD Emergency Provider Active Dr. Edis Mayo MD Admit Provider, Other Provider A ctive Dr. Td Pillai , DO Other Provider Active Dr. Ramon Antunez , Attending Provider Active Dr. Yemi Celaya MD [...] Graff MD Other Provider Active Sheridan Jovel CIRCUIT BOARD REPAIR TECHNICIAN, CIRCUIT BOARD REPAIR TECHNICIAN-C Other Provider Active Dr. Edis Mayo MD [...] Dr. Julio Draper MD Primary Care P gomez, Attending Provider, Referring Provider Active Grain Elevator Superintendent Relationship Specialty Start Date End Date Julio Draper MD [address] [facility] [place] [address] PCP - General Internal Medicine 07/15/15 Grain Elevator Superintendent Relationship Specialty Start Date End Date Julio Draper MD [address] [facility] [place] [address] PCP - General Internal Medicine 07/15/15 Grain Elevator Superintendent Relationship Specialty Start Date End Date Julio Draper MD [address] [facility] [place] [address] PCP - General Internal Medicine 07/15/15 Grain Elevator Superintendent Relationship Specialty Start Date End Date Julio Draper MD [address] [facility] [place] [address] PCP - General Internal Medicine 07/15/15 Grain Elevator Superintendent Relationship Specialty Start Date End Date Julio Draper MD [address] [facility] [place] [address] PCP - General Internal Medicine 07/15/15 Grain Elevator Superintendent Relationship Specialty Start Date End Date Julio Draper MD [address] [facility] [place] [address] PCP - General Internal Medicine 07/15/15 Grain Elevator Superintendent Relationship Specialty Start Date End Date Julio Draper MD [address] [facility] [place] [address] PCP - General Internal Medicine 07/15/15 Grain Elevator Superintendent Relationship Specialty Start Date End Date Julio Draper MD [address] [place] [address] PCP - General Internal Medicine 07/15/15 Grain Elevator Superintendent Relationship Specialty Start Date End Date Julio Draper MD [address] [place] [address] PCP - General Internal Medicine 07/15/15 Grain Elevator Superintendent Relationship Specialty Start Date End Date Julio Draper MD [address] [place] [address] PCP - General Internal Medicine 07/15/15 Grain Elevator Superintendent Relationship Specialty Start Date End Date Julio Draper MD [address] [place] [address] PCP - General Internal Medicine 07/15/15 Grain Elevator Superintendent Relationship Specialty Start Date End Date Julio Draper MD [address] [place] [address] PCP - General Internal Medicine 07/15/15 Grain Elevator Superintendent Relationship Specialty Start Date End Date Julio Draper MD [address] [facility] [place] [address] PCP - General Internal Medicine 07/15/15 Grain Elevator Superintendent Relationship Specialty Start Date End Date Julio Draper MD [address] [facility] [place] [address] PCP - General Internal Medicine 07/15/15 Grain Elevator Superintendent Relationship Specialty Start Date End Date Julio Draper MD [address] [place], [place] [address]201 PCP - General Internal Medicine 07/15/15 Grain Elevator Superintendent Relationship Specialty Start Date End Date Julio Draper MD [address] [place], [place] [address] PCP - General Internal Medicine 07/15/15 Grain Elevator Superintendent Relationship Specialty Start Date End Date Julio Draper MD [address] [place], [place] [address]871 PCP - General Internal Medicine 07/15/15 Magali Nieves MD [address] [place] [phone] 02/27/24 Grain Elevator Superintendent Relationship Specialty Start Date End Date Julio Draper MD [address] [place] [address] PCP - General Internal Medicine 07/15/15 Grain Elevator Superintendent Relationship Specialty Start Date End Date Julio Draper MD [address] [place], [place] [address] PCP - General Internal Medicine 07/15/15 Grain Elevator Superintendent Relationship Specialty Start Date End Date Julio Draper MD [address] [place], [place] 331671 PCP - General Internal Medicine 07/15/15 Magali Nieves MD [address] [place] [phone] 02/27/24 Grain Elevator Superintendent Relationship Specialty Start Date End Date Julio Draper MD [address] [place], [place] [address]7901 PCP - General Internal Medicine 07/15/15 Grain Elevator Superintendent Relationship Specialty Start Date End Date Julio Draper MD [address] [place], [place] [address] PCP - General Internal Medicine 07/15/15 Grain Elevator Superintendent Relationship Specialty Start Date End Date Julio Draper MD [address] [place], [place] [address]15421 PCP - General Internal Medicine 07/15/15 Magali Nieves MD [address] [place], [place] [phone] 02/27/24 Grain Elevator Superintendent Relationship Specialty Start Date End Date Julio Draper MD [address] [place], [place] 772681 PCP - General Internal Medicine 07/15/15 Magali Nieves MD [address] [place] [phone] 02/27/24 Grain Elevator Superintendent Relationship Specialty Start Date End Date Julio Draper MD [address] [place], [place] 554761 PCP - General Internal Medicine 07/15/15 Magali Nieves MD [address] [place] [address] 02/27/24 Grain Elevator Superintendent Relationship Specialty Start Date End Date Julio Draper MD [address] [place], [place] 565811 PCP - General Internal Medicine 07/15/15 Magali Nieves MD [address] [place] [address] 02/27/24 Grain Elevator Superintendent Relationship Specialty Start Date End Date Julio Draper MD [address] [place], [place] 296851 PCP - General Internal Medicine 07/15/15 [place] [address] [place] [phone] 02/27/24 Grain Elevator Superintendent Relationship Specialty Start Date End Date Julio Draper MD [address] [place], [place] 495011 PCP - General Internal Medicine 07/15/15 Magali Nieves MD [address] [place] [phone] 02/27/24 Tasha Laureano, RESORT MANAGER.HEAD SAWYER [address] [place], [place] 6898[address] Continuous Churn Buttermaker Internal Medicine 06/11/24 Grain Elevator Superintendent Relationship Specialty Start Date End Date Julio Draper MD [address] [place], [place] [address]1951 PCP - General Internal Medicine 07/15/15 Magali Nieves MD [address] [place] [address] 02/27/24 Tasha Laureano, RESORT MANAGER.HEAD SAWYER [address] [place], [place] 269841 Continuous Churn Buttermaker Internal Medicine 06/11/24 Grain Elevator Superintendent Relationship Specialty Start Date End Date Julio Draper MD [address] [place], [place] 379921 PCP - General Internal Medicine 07/15/15 Magali Nieves MD [address] [place] [address] 02/27/24 Tasha Laureano, RESORT MANAGER.HEAD SAWYER [address] [place], [place] 818951 Continuous Churn Buttermaker Internal Medicine 06/11/24 Grain Elevator Superintendent Relationship Specialty Start Date End Date Julio Draper MD [address] [place], [place] 301781 PCP - General Internal Medicine 07/15/15 Magali Nieves MD [address] [place] [address] 02/27/24 Tasha Laureano, RESORT MANAGER.HEAD SAWYER [address] [place] [address] Continuous Churn Buttermaker Internal Medicine 06/11/24 Grain Elevator Superintendent Relationship Specialty Start Date End Date Julio Draper MD [address] [place] [address] PCP - General Internal Medicine 07/15/15 Magali Nieves MD [address] [place] [address] 02/27/24 Tasha Laureano, RESORT MANAGER.HEAD SAWYER [address] [place] [address] Continuous Churn Buttermaker Internal Medicine 06/11/24 Grain Elevator Superintendent Relationship Specialty Start Date End Date Julio Draper MD [address] [place] [address] PCP - General Internal Medicine 07/15/15 Magali Nieves MD [address] [place] [address] 02/27/24 Tasha Laureano, RESORT MANAGER.HEAD SAWYER [address] [place] [address] Continuous Churn Buttermaker Internal Medicine 06/11/24 Grain Elevator Superintendent Relationship Specialty Start Date End Date Julio Draper MD [address] [place], [place] 189521 PCP - General Internal Medicine 07/15/15 Magali Nieves MD [address] [place] [address] 02/27/24 Tasha Laureano, RESORT MANAGER.HEAD SAWYER [address] [place], [place] 45[address] Continuous Churn Buttermaker Internal Medicine 06/11/24 Grain Elevator Superintendent Relationship Specialty Start Date End Date Julio Draper MD [address] [place], [place] 626941 PCP - General Internal Medicine 07/15/15 Magali Nieves MD [address] [place] [phone] 02/27/24 Tasha Laureano, RESORT MANAGER.HEAD SAWYER [address] [place], [place] 783841 Continuous Churn Buttermaker Internal Medicine 06/11/24 Grain Elevator Superintendent Relationship Specialty Start Date End Date Julio Draper MD [address] [place], [place] 738571 PCP - General Internal Medicine 07/15/15 Magali Nieves MD [address] [place] [address] 02/27/24 Tasha Laureano, RESORT MANAGER.HEAD SAWYER [address] [place], [place] 135[address] Continuous Churn Buttermaker Internal Medicine 06/11/24 Grain Elevator Superintendent Relationship Specialty Start Date End Date Julio Draper MD [address] [place], [place] 502601 PCP - General Internal Medicine 07/15/15 Magali Nieves MD [address] [place] [address] 02/27/24 Tasha Laureano, RESORT MANAGER.HEAD SAWYER [address] [place] [address] Continuous Churn Buttermaker Internal Medicine 06/11/24 Grain Elevator Superintendent Relationship Specialty Start Date End Date Julio Draper MD [address] [place], [place] 840071 PCP - General Internal Medicine 07/15/15 Magali Nieves MD [address] [place] [address] 02/27/24 Tasha Laureano, RESORT MANAGER.HEAD SAWYER [address] [place] [address] Continuous Churn Buttermaker Internal Medicine 06/11/24 Grain Elevator Superintendent Relationship Specialty Start Date End Date Julio Draper MD [address] [place] [address] PCP - General Internal Medicine 07/15/15 Magali Nieves MD [address] [place] [address] 02/27/24 Tasha Laureano, RESORT MANAGER.HEAD SAWYER [address] [facility] [place] [address] Continuous Churn Buttermaker Internal Medicine 06/11/24 Grain Elevator Superintendent Relationship Specialty Start Date End Date Julio Draper MD [address] [place] [address] PCP - General Internal Medicine 07/15/15 Magali Nieves MD [address] [place] [address] 02/27/24 Tasha Laureano, RESORT MANAGER.HEAD SAWYER [address] [place] [address] Continuous Churn Buttermaker Internal Medicine 06/11/24 Grain Elevator Superintendent Relationship Specialty Start Date End Date Julio Draper MD [address] [place] [address] PCP - General Internal Medicine 07/15/15 Magali Nieves MD [address] [place] [address] 02/27/24 Tasha Laureano, RESORT MANAGER.HEAD SAWYER [address] [place] [address] Continuous Churn Buttermaker Internal Medicine 06/11/24 Grain Elevator Superintendent Relationship Specialty Start Date End Date Julio Draper MD [address] [place] [address] PCP - General Internal Medicine 07/15/15 Magali Nieves MD [address] [place] [address] 02/27/24 Tasha Laureano, RESORT MANAGER.HEAD SAWYER [address] [place] [address] Continuous Churn Buttermaker Internal Medicine 06/11/24 Grain Elevator Superintendent Relationship Specialty Start Date End Date Julio Draper MD [address] [place], [place] 148401 PCP - General Internal Medicine 07/15/15 Magali Nieves MD [facility] [place] [phone] 02/27/24 Tasha Laureano, RESORT MANAGER.HEAD SAWYER [address] [place] [address] Continuous Churn Buttermaker Internal Medicine 06/11/24 Grain Elevator Superintendent Relationship Specialty Start Date End Date Julio Draper MD [address] [place], [place] [address]15[address] PCP - General Internal Medicine 07/15/15 Magali Nieves MD [facility] [place] [address] 02/27/24 Tasha Laureano RESORT MANAGER.HEAD SAWYER [address] [place] [address] Continuous Churn Buttermaker Internal Medicine 06/11/24 Team Status: Active Member [...] Active Start: July 25, 2024 Dr. Radu Sullivan MD Emergency Provider [...] Sta rt: August 07, 2024 Dr. Adelia Lawson MD Other Provider Active Start: August 07, [...] September 17, 2024 End: September 17, 2024 Grain Elevator Superintendent Relationship Specialty Start Date End Date Julio Draper MD [address] [place] [address] PCP - General Internal Medicine 07/15/15 Magali Nieves MD [facility] [place] [address] 02/27/24 Tasha Laureano, WHITNEY.HEAD SAWYER [address] [place] [address] Continuous Churn Buttermaker Internal Medicine 06/11/24 Team Status: Inactive Member [...] November 01, 2024 End: November 01, 2024 Grain Elevator Superintendent Relationship Specialty Start Date End Date Julio Draper MD [address] [facility], [place] [address] PCP - General Internal Medicine 07/15/15 Magali Nieves MD [address] [place] [phone] 02/27/24 Tasha Laureano, RESORT MANAGER.HEAD SAWYER [address] [facility], [place] [address] Continuous Churn Buttermaker Internal Medicine 06/11/24 Grain Elevator Superintendent Relationship Specialty Start Date End Date Julio Draper MD [address] [facility], [place] 8585[address] PCP - General Internal Medicine 07/15/15 Magali Nieves MD [address] [place] [address] 02/27/24 Tasha Laureano, RESORT MANAGER.HEAD SAWYER [address] [place] [address] Continuous Churn Buttermaker Internal Medicine 06/11/24 Team Status: Active Member [...] 01, 2024 End: November 01, 2024 Lorna SILVESTRE PA Attending Provider Active Start: November 01, [...] 01, 2024 End: November 01, 2024 Lorna SILVESTRE PA Attending Provider Active Start: November 01, 2024 End: November 01, 2024 Team Status: Inactive Member Role/Relationship Status Dates Dr. Julio Draper MD Primary Care Provider Active Start: November 20, 2024 End: November 20, 2024 Lorna SILVESTRE, PA Attending Provider Active Start: November 20, 2024 End: November 20, 2024 Lorna SILVESTRE, PA Referring Provider Active Start: November 20, 2024 End: November 20, 2024 Team Status: Active Member Role/Relationship Status Dates Dr. Julio Draper MD Primary Care Provider Active Start: November 20, 2024 Dr. Alayna Salazar MD Attending Provider Active Start: November 20, 2024 Lorna SILVESTRE, PA Referring Provider Active Start: November 20, [...] 24, 2025 End: January 24, 2025 Lorna Dasilva PA, PA Attending Provider Active Start: January 24, 2025 End: January 24, 2025 Team Status: Inactive Member Role/Relationship Status Dates Dr. Julio Draper MD Primary Care Provider Active Start: February 09, 2025 End: February 09, 2025 Dr. Livan Murry DO Referring Provider Active Start: February 09, 2025 End: February 09, 2025 Dr. Livan Murry DO Emergency Provider Active Start: February 09, 2025 End: February 09, 2025 Grain Elevator Superintendent Relationship Specialty Start Date End Date Julio Draper MD [address] [place] [address] PCP - General Internal Medicine 07/15/15 Magali Nieves MD [address] [place] [id number] 02/27/24 Tasha Laureano, RESORT MANAGER.[facility] [address] [place] [address] Continuous [employer] Internal Medicine 06/11/24 Team Status: Active Member Role/Relationship Status Dates Dr. Julio Draper MD Primary care physician Activ e Team Status: Inactive Member Role/Relationship Status Dates Dr. Julio Draper MD Primary care physician Activ e Start: January 03, 2025 End: January 03, 2025 Dr. Livan Love MD Attending physician Active Start: January 03, 2025 End: January 03, 2025 Dr. Livan Love MD Referring Provider Active S tart: January 03, 2025 End: January 03, 2025 Team Status: Active Member Role/Relationship Status Dates Dr. Julio Draper MD Primary care physician Activ e Start: January 03, 2025 Dr. Livan Love MD Attending physician Active Start: January 03, 2025 Dr. Livan Love MD Referring Provider Active S tart: January 03, 2025 Dr. Livan Love MD Nurse Practitioner Active S tart: January 03, 2025 Team Status: Inactive Member Role/Relationship Status Dates Dr. Julio Draper MD Primary care physician Activ e Start: January 24, 2025 End: January 24, 2025 Dr. Julio Draper MD Referring Provider Active Start: January 24, 2025 End: January 24, 2025 Lorna SILVESTRE, PA Attending physician Active Start: January 24, 2025 End: January 24, 2025 Team Status: Inactive Member Role/Relationship Status Dates Dr. Julio Draper MD Primary care physician Activ e Start: February 09, 2025 End: February 09, 2025 Dr. Livan Murry , DO Attending physician Active Start: February 09, 2025 End: February 09, 2025 Dr. Livan Murry , DO Referring Provider Active Start: February 09, 2025 End: February 09, 2025 Dr. Livan Murry , DO Emergency Departm ent Physician Active Start: February 09, 2025 End: February 09, 2025 Team Status: Inactive Member Role/Relationship Status Dates Dr. Julio Draper MD Primary care physician Activ e Start: April 13, 2025 End: April 14, 2025 Dr. Hoang Foster , DO Attending physician Active Start: April 13, 2025 End: April 14, 2025 Dr. Hoang Foster , DO Emergency Departme nt Physician Active Start: April 13, 2025 End: April 14, 2025 Team Status: Inactive Member Role/Relationship Status Dates Dr. Julio Draper MD Primary care physician Activ e Start: April 21, 2025 End: April 21, 2025 Dr. Tejas Miller , Emergency Department Physician Active Start: April 21, 2025 End: April 21, 2025 Team Status: Inactive Member Role/Relationship Status Dates Dr. Juilo Draper MD Primary care physician Activ e Start: January 24, 2025 End: January 24, 2025 Dr. Julio Draper MD Referring Provider Active Start: January 24, 2025 End: January 24, 2025 Lorna SILVESTRE, PA Attending physician Active Start: January 24, 2025 End: January 24, 2025 Team Status: Inactive Member Role/Relationship Status Dates Dr. Julio Draper MD Primary care physician Activ e Start: February 09, 2025 End: February 09, 2025 Dr. Livan Murry , DO Attending physician Active Start: February 09, 2025 End: February 09, 2025 Dr. Livan Murry , DO Referring Provider Active Start: February 09, 2025 End: February 09, 2025 Dr. Livan Murry , DO Emergency Departm ent Physician Active Start: February 09, 2025 End: February 09, 2025 Team Status: Inactive Member Role/Relationship Status Dates Dr. Julio Draper MD Primary care physician Activ e Start: April 13, 2025 End: April 14, 2025 Dr. Hoang Foster DO Attending physician Active Start: April 13, 2025 End: April 14, 2025 Dr. Hoang Foster , DO Emergency Departme nt Physician Active Start: April 13, 2025 End: April 14, 2025 Team Status: Inactive Member Role/Relationship Status Dates Dr. Julio Draper MD Primary care physician Activ e Start: April 21, 2025 End: April 21, 2025 Dr. Tejas Miller DO Attending physician Active Start: April 21, 2025 End: April 21, 2025 Dr. Tejas Miller DO Emergency Department Physician Active Start: April 21, 2025 End: April 21, 2025 Goals (unrecognized section and content) Goals [...] BE BASED ON THE PRIMARY CLINICAL RECORDS. [employer] [facility]. provides no warranty or guarantee of the accuracy or completeness of information in this document.
[2025-05-31 19:03] VITALS: BP 136/52; PULSE 102; RESP 22; O2SAT 99
[2025-05-31 20:25] VITALS: BP 136/46; PULSE 105; RESP 20; TEMP 37.7; O2SAT 93
== END 2025-05-31 20:26 | disposition home or self-care (01) ==
PROVIDERS: Emergency Provider Emergency Medicine; PCP Internal Medicine; Visit Provider Emergency Medicine
DX: R10.84 Generalized abdominal pain (principal); I12.0 Hypertensive chronic kidney disease with stage 5 chronic kidney disease or end stage renal disease; N18.6 End stage renal disease; J44.9 Chronic obstructive pulmonary disease, unspecified; I48.91 Unspecified atrial fibrillation; R11.2 Nausea with vomiting, unspecified; Z90.49 Acquired absence of other specified parts of digestive tract; E78.5 Hyperlipidemia, unspecified; Z99.2 Dependence on renal dialysis; Z87.891 Personal history of nicotine dependence; I25.2 Old myocardial infarction; Z79.899 Other long term (current) drug therapy; Z79.51 Long term (current) use of inhaled steroids; K21.9 Gastro-esophageal reflux disease without esophagitis; F41.9 Anxiety disorder, unspecified; Z96.619 Presence of unspecified artificial shoulder joint
CPT/HCPCS: 80048; 85025; 96374; 96375; 99285; A4216; J2405